=== PATIENT | female | born 1965 | race Caucasian/White ===

== ENCOUNTER 2021-09-23 11:51 | Outpatient (CLI) | payer OTHER, SELFPAY ==
[2021-09-24 22:27] LABS: Rubella Antibody IgG 81.7 IU/mL
== END 2021-09-23 11:52 | disposition home or self-care (01) ==
LOC: LAB 11:56
PROVIDERS: PCP Family Medicine; Visit Provider Family Medicine
DX: Z13.9 Encounter for screening, unspecified (principal)
CPT/HCPCS: 36415; 86735; 86762; 86765

== ENCOUNTER 2022-01-08 11:20 | Outpatient (CLI) | payer OTHER, SELFPAY | END 2022-01-08 11:21 | disposition home or self-care (01) | PROVIDERS: PCP Family Medicine; Visit Provider Obstetrics & Gynecology | DX: R32 Unspecified urinary incontinence (principal) | CPT/HCPCS: 87086 ==

== ENCOUNTER 2022-01-11 17:50 | Emergency (ER) | payer OTHER, SELFPAY ==
[2022-01-11 18:31] VITALS: BP 163/68; PULSE 62; RESP 18; TEMP 36.4; O2SAT 98; BMI 34.2
--- OUTSIDE RECORDS SUMMARY | 2022-01-11 20:17 | XMS_ITS ---
:1965 Author Name Lulu Snow Care Team Providers Name Role Phone Lulu Snow Unavailable Unavailable PROBLEMS Type Condition ICD9-CM Code [id number] Code Onset Condition SNO MED Code Dates Status Problem Urge incontinence N39.41 Active 87 [id number] ALLERGIES Substance Reaction Event Type Date Status Ibuprofen Unknown Drug Allergy Jan, Active ENCOUNTERS Encounter Location Date Diagnosis [facility] [address] [facility] [address], [place], [place] [id number] IMMUNIZATIONS No Known Immunizations SOCIAL HISTORY Qualifiers Date Never Smoker REASON FOR REFERRAL Reason Urge Incontinence Referring Provider First Name Lulu Referring Provider Last Name Gwendolyn Referring Provider Specialty Digital Computer Systems Analyst and gynecolo [facility] Referred Organization [facility] Referred Provider Huyen Baird Referred Address [address] [place], [id number] Referred Provider Specialty Digital Computer Systems Analyst and gynecolog ist FUNCTIONAL STATUS PLAN OF CARE Activity Details Referral Urge Incontinence, Huyen cavanaugh, [address] [place], [place], [phone], VITAL SIGNS MEDICATIONS Medication Instructions Dosage Frequency Start Date End Date Duration S tatus Lisinopril Active Calcium + D Active Levothyroxine Active Sodium NovoLOG Active Citalopram Active Hydrobromide Vitamin B Complex Active Lansoprazole Active Amitriptyline HCl Active Estradiol Active Topiramate Active valACYclovir HCl Active Aspirin Active Glucagon Active Pregabalin Active Oxybutynin Chloride Acti ve ER NovoLOG FlexPen Active PROCEDURES No Known procedures RESULTS No Results REASON FOR VISIT Insurance Providers Health Health Health Health Health Member Patient Patient Patient Patient Patient Subscriber Subscriber Subscriber Group Insurance Plan Plan Plan Plan ID Relationship Address Phone Name Date of ID Name Date of No Type Insurance Insurance Insurance Coverage to Subscriber Address Phone Name Dates HealthPart [address] HealthPart self Marnie [id number] Jadiel TSANG [id number] MEDICAL (GENERAL) HISTORY Type Description Date Medical History Hypothyroid Medical History Type 1 diabetes Medical History History of congenital polycystic kidney disease Medical History HSV 2 Medical History Migraine with aura Medical History Depression Medical History Heart Murmur Medical History Chronic Constipation Surgical History ureteral surgery followed by a right nep hrectomy-since this 2006 surgery pt has had urge incontinence
--- OUTSIDE RECORDS SUMMARY | 2022-01-11 20:17 | XMS_ITS | Encounter Summary ---
:1965 Author Organization [place] Address [facility] [place] [address] Care Team Providers Name Role Phone Jocelyn Davidson RENATA Unavailable Nikita Gamble Primary Care Provider Naveen Casiano MD Unavailable Harlan Lin MD Unavailable Unavailable Mikki Blevins MD Unavailable Reason for Visit Reason Comments Medication Refill Encounter Details Date Type Department Care Team Description 06/27/2021 Refill [facility] Naveed Lin Medication [place] [address] [facility] [place] [address] Social History Tobacco Use Types Packs/Day Years Used Date Smoking Tobacco: Never Smokeless Tobacco: Never Alcohol Use Standard Drinks/Week Comments Yes 0 (1 standard drink = 0.6 oz pure alcoho l) rare Sex Assigned at Date Recorded Female 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 Up to 125 units per day. Last Written Prescription Date: 03/22/21 Last Fill Quantity: 110 ml, # refills: 0 Last Office Visit : 12/03/20 Future Office visit: 07/28/21 (new patient appt) Routing refill request to provider for review/approval because: Insulin refilled by Clinic RN. Former patient of Dr. Lin. documented in this encounter Plan of Treatment Upcoming Encounters Date Type Specialty Care Team Description 02/09/2022 Virtual Visit Surgery Mindi Llanes PA-C [address] [facility] [address] [place] [address] (Wo rk) documented as of this encounter Visit Diagnoses Diagnosis Type 1 diabetes mellitus with stage 3a c hronic kidney disease (H) documented in this encounter Additional Health Concerns Assessment Noted Time PHQ-9 Depression Total Score: 0 02/26/2020 1:30 PM INFORMATION SPECIALIST documented as of this encounter Care Teams Data Consultant Relationship Specialty Start Date End Date Nikita Gamble PCP - General Family Medicine 05/26/20 [facility] [address] [place] [address] Customer Logistics Manager Dietitian, Registered 05/25/[address] [place] [address] Naveen Casiano MD Assigned PCP 11/16/20 [address] [place], [place] [phone] Harlan Lin Assigned Endocrinology 12/07/20 08/01/21 MD [facility] Provider NO INFO AVAILABLE Mikki Blevins MD MD Endocrinology, 05/07/21 [address] [facility] Diabetes, and [place], [place] Metabolism [phone] documented as of this encounter
--- OUTSIDE RECORDS SUMMARY | 2022-01-11 20:17 | XMS_ITS | Encounter Summary ---
:1965 Author Organization [place] Address [address] [facility] [place] [address] Care Team Providers Name Role Phone Jocelyn Davidson RENATA Unavailable Nikita Gamble Primary Care Provider Naveen Casiano MD Unavailable Mikki Blevins MD Unavailable Mikki Blevins MD Unavailable Mindi Llanes PA-C Unavailable Reason for Visit Reason Comments Medication Refill Encounter Details Date Type Department Care Team Description 12/20/2021 Refill [facility] Surgical Thuan Llanes Medication Refill [facility] E alvaro Macias PA-C [address] [facility] out [address] [facility] [address] [place] [address] [place] [id number] [phone] Social History Tobacco Use Types Packs/Day Years Used Date Smoking Tobacco: Never Smokeless Tobacco: Never Alcohol Use Standard Drinks/Week Comments Yes 0 (1 standard drink = 0.6 oz pure alcoho l) rare Sex Assigned at Date Recorded Female 03/04/2020 12:33 PM BIG DATA HADOOP 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 Telephone Encounter - Jammie Mohr RN - 12/22/2021 10:35 AM CDT Left voicemail to make an appointment. Jammie Mohr RN on 12/22/2021 at 10:35 AM Telephone Encounter - Jammie Mohr RN - 12/21/2021 9:32 AM CDT Sent mc - needs appt with [facility]D documented in this encounter Plan of Treatment Upcoming Encounters Date Type Specialty Care Team Description 02/09/2022 Virtual Visit Surgery Mindi Llanes PA-C [address] [facility] [address] [place] [address] (Wo rk) documented as of this encounter Visit Diagnoses Diagnosis Class 2 severe obesity due to excess que ories with serious comorbidity and body mass index (BMI) of 36.0 to 36.9 in adult (H) documented in this encounter Additional Health Concerns Assessment Noted Time PHQ-9 Depression Total Score: 0 02/26/2020 1:30 PM BIG DATA HADOOP DEVELOPER documented as of this encounter Care Teams Urban Anthropologist Relationship Specialty Start Date End Date Nikita Gamble PCP - General Family Medicine 05/26/20 [facility] [address] [place] [address] Warehouse Selector Dietitian, Registered 05/25/18 [facility] [place] [address] Naveen Casiano MD Assigned PCP 11/16/20 [address] [place], [place] [phone] Mikki Blevins MD MD Endocrinology, 05/07/21 [address] [facility] Diabetes, and [place], [place] Metabolism [phone] Mikki Blevins MD Assigned Endocrinology 08/02/21 [facility] Provider [facility] [place], [place] [phone] Mindi Llanes Assigned Surgical 09/26/21 PRETTY Macias Provider [address] [facility] [address] [place] [address] documented as of this encounter
--- OUTSIDE RECORDS SUMMARY | 2022-01-11 20:17 | XMS_ITS | Encounter Summary ---
:1965 Author Organization [place] Address [address] [facility] [place] [address] Care Team Providers Name Role Phone Jocelyn Davidson Bran YANEZ Unavailable Nikita Gamble Primary Care Provider Naveen Casiano MD Unavailable Harlan Lin MD Unavailable Unavailable Reason for Visit Reason Comments Medication Refill Encounter Details Date Type Department Care Team Description 03/14/2021 Refill [facility] Annette Alvarez, Medication Refill [phone] [place] [address] (Wo rk) Social History Tobacco Use Types Packs/Day Years Used Date Smoking Tobacco: Never Smokeless Tobacco: Never Alcohol Use Standard Drinks/Week Comments Yes 0 (1 standard drink = 0.6 oz pure alcoho l) rare Sex Assigned at Date Recorded Female 03/04/2020 12: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 documented as of this encounter Miscellaneous Notes Telephone Encounter - Kandi Rooney RN - 03/17/2021 8:49 AM CST Routing refill request to provider for review/approval because: Labs out of range: TSH Patient needs to be seen because it has been more than 1 year since last office visit as patient seen Annette Avlarez STRIAL ELECTRICAL ENGINEER documented in this encounter Plan of Treatment Upcoming Encounters Date Type Specialty Care Team Description 02/09/2022 Virtual Visit Surgery Mindi Llanes PA-C [address] [facility] [place] [address] [place] [address] (Wo rk) documented as of this encounter Visit Diagnoses Diagnosis Type 1 diabetes mellitus with stage 3a c hronic kidney disease (H) - Primary 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 documented in this encounter Additional Health Concerns Assessment Noted Time PHQ-9 Depression Total Score: 0 02/26/2020 1:30 PM INDUSTRIAL ELECTRICAL ENGINEER documented as of this encounter Care Teams Plastic Parts Fabricator Relationship Specialty Start Date End Date Nikita Gamble PCP - General Family Medicine 05/26/[address] Landscape Architecture Professor Dietitian, Registered 05/25/[address] [place] [address] Naveen Casiano MD Assigned PCP 11/16/20 [address] [place], [place] [phone] Harlan Lin Assigned Endocrinology 12/07/20 08/01/21 MD Bassam Provider NO INFO AVAILABLE documented as of this encounter
--- OUTSIDE RECORDS SUMMARY | 2022-01-11 20:17 | XMS_ITS | Encounter Summary ---
:1965 Author Organization [facility] Address [address] [facility] 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) Chronic kidney disease, stage 3a (H) Mindi Llanes PA-C [address] [facility] [address] [place] [address] Referral ID Status Reason Start Date Expiration Date Visits V isits Requested Authorized [id number] Pending 09/22/2021 09/22/2022 1 1 Review Reason for Visit Reason Comments New Patient New mwm; ELIF Consultation (Routine: Next available opening) - Pending Review Specialty Diagnoses / Procedures Referred By Contact Refer red To Contact Bariatric Diagnoses Class 2 severe obesity with serious comorbidity and body mass index (BMI) of 36.0 to 36.9 in adult, unspecified obesity type (H) Mikki Blevins MD [facility] [address] [address] [place] [address] Phone: Fax: Referral ID Status Reason Start Date Expiration Date Visits V isits Requested Authorized [id number] Pending 07/28/2021 07/28/2022 1 1 Review Encounter Details Date Type Department Care Team Description 09/22/2021 Virtual Visit [facility] Mindi Llanes Class 2 severe obesity due to excess calories with serious comorbidity and body mass index (BMI) of 36.0 to 36.9 in adult (H) (Primary Dx); Surgical Weight Loss Leah Macias-Ashlee Type 1 diabetes mellitus with complicati ons (H); [facility] [place] [address] Chronic kidney disease, stag e 3a (H); [address] Benign essential hypertension; [place] [address] Acquired hypothyroidism; [address] Uncontrolled type 1 diabetes with renal manifestation (H); [place] [address] (Work) Migraine with status migrainosus, not in tractable, unspecified migraine type [phone] Social History Tobacco Use Types Packs/Day Years Used Date Smoking Tobacco: Never Smokeless Tobacco: Never Alcohol Use Standard Drinks/Week Comments Yes 0 (1 standard drink = 0.6 oz pure alcoho l) rare Sex Assigned at Date Recorded Female 03/04/2020 12:33 PM [employer] documented as of this encounter Last Filed Vital Signs Vital Sign Reading Time Taken Comments Blood Pressure - - Pulse - - Temperature - - Respiratory Rate - - Oxygen Saturation - - Inhaled Oxygen Concentration - - Weight 120.2 kg (265 lb) 09/22/2021 9:21 AM CDT pt repo rted Height 180.3 cm (5' 11) 09/22/2021 9:21 AM CDT pt repo rted Body Mass Index 36.96 09/22/2021 9:21 AM CDT documented in this encounter Patient Instructions Patient InstructionsMindi Llanes PA-C - 09/22/2021 9:30 AM CDT Nice to talk with you today. Below is our plan we discussed.- PRETTY [place] Plan: Start phentermine Take 1/2 tablet in the morning for 10 days, your may increase to full tablet if tolerating and weight is not moving in the right direction. Here is the website for the bariatric online information session. Please click this to review. We will discuss at our follow up visit. [email or web address] Goals: Add in short bursts of activity throughout you day. FOLLOW-UP: Please call [phone] to schedule your next visit in 8-10 weeks. MEDICATION STARTED AT THIS APPOINTMENT We are starting Phentermine. Take 1/2 tablet in the morning for 10 days, may increase to full tabletif tolerating following. Please get blood pressure and pulse checked 1-2 weeks after starting phentermine. If BP above 140/90or pulse is greater than 100 contact clinic. Phentermine is being prescribed because you identified hunger as one of the main causes for your extra weight. Our patients on Phentermine find that they: >feel less hunger >find it easier to push the plate away >have an easier time eating less For some of our patients, these feelings are very real and immediate. For other patients, the feelings are less obvious. They don't feel much of a change but find they've lost weight. Like all weight loss medications, Phentermine works best when you help it work. This means: 1. Having less tempting high calorie (fattening) food around the house or office. (For people with strong cravings this is very important.) 2. Staying away from situations or people that may trigger your cravings . 3. Eating out only one time or less each week. 4. Eating your meals at a table with the TV or computer off. Side-effects. Phentermine is generally well tolerated. The main side-effects we see are feelings of racing pulse or rapid heart beat. Some people can get an elevated blood pressure. Because of this we may have you come back within a week or so of starting the medication for a blood pressure check. In order to get refills of this or any medication we prescribe you must be seen in the medical weight mgmt clinic every 2-3 months. documented in this encounter Progress Notes Mindi Llanes PA-C - 09/22/2021 9:30 AM CDT 2Hrebel is a 56 year old who is being evaluated via a billable video visit. If the video visit is dropped, the invitation should be resent by: Text to cell phone: [phone] Will anyone else be joining your video visit? No Video-Visit Details Type of service: Video Visit Video Start Time: 9:30 AM Video End Time:10:30 AM Originating Location (pt. Location): Home Distant Location (provider location): [facility] [place] Platform used for Video Visit: [facility] Medical Weight Management Consult PATIENT: Marnie Duvall : 1965 MOOKIE: 09/22/2021 Dear TONY ACKERMAN, I had the pleasure of seeing your patient, Marnie Duvall. Full intake/assessment was done to determine barriers to weight loss success and develop a treatment plan. Marnie Duvall is a 56 year old female interested in treatment of medical problems associated with excess weight. She has a height of 5'11[pt reported[, a weight of 265 lbs 0 oz, and the calculated Body mass index is 36.96 kg/m??. 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) Relevant Orders NUTRITION REFERRAL Uncontrolled type 1 diabetes with renal manifestation (H) Acquired hypothyroidism Benign essential hypertension Migraine with status migrainosus, not intractable, unspecified migraine type Other Visit Diagnoses Class 2 severe obesity with serious comorbidity and body mass index (BMI) of 36.0 to 36.9 in adult,unspecified obesity type (H) - Primary Relevant Medications phentermine (ADIPEX-P) 37.5 MG tablet Other Relevant Orders NUTRITION REFERRAL Chronic kidney disease, stage 3a (H) Relevant Orders NUTRITION REFERRAL PROGRAM OVERVIEW Reviewed options at [facility] including provider visits, fence builder, 24 week healthylifestyle program, health coaching, food supplements, Get Moving program, and psychological support.All questions about weight loss program were answered. SURGICAL WEIGHT LOSS Option presented given pt BMI and current comorbid conditions. Website for bariatric online information session provided. Pt will review at home and we will discuss at our follow up visit. [email or web address] MEDICATIONS: We discussed healthy habits to assist with weight loss. We reviewed medications associated with weight gain. We discussed the role of pharmacological agents in the treatment of obesity and the off-label use of medications in this practice. We reviewed medication that may assist with weight loss. Indications, contraindications, risks/benefits, and potential side effects were discussed. Phentermine was prescribed. Discussed that medications must always be used together with lifestyle changes such asimprovements in diet choices, portion control and establishing and maintaining a regular exercise program. Pulse Readings from Last 6 Encounters: 11/06/20 75 03/05/20 70 02/26/20 67 11/22/19 69 11/07/19 71 04/16/19 76 AOM Considerations: Phentermine: Not tried. Has low energy. Topiramate: Currently taking for migraines. GLP-1: Tried Ozempic but had signifigant constipation, suspects she has gastroparesis. Naltrexone: Does not having cravings Wellbutrin: Not trieed Metformin: Has type I diabetes Contrave: Does not having cravings Qsymia: On Topiramate CURRENT GOALS: Add in short bursts of activity throughout you day. Follow up: Please call [phone] to schedule your next visit in 8-10 weeks. 68 minutes spent on the date of the encounter doing chart review, history and exam, review test results, counseling, developing plan of care, documentation, and further activities as noted above. She has the following co-morbidities: 09/21/2021 I have the following health issues associated with obesity: GERD (Reflux), Stress Incontinence I have the following symptoms associated with obesity: None of the above Patient Goals 09/21/2021 I am interested in having a healthier weight to diminish current health problems: Yes I am interested in having a healthier weight in order to prevent future health problems: Yes I am interested in having a healthier weight in order to have a future surgery: No If yes, please indicate which surgery? N/A Referring Provider 09/21/2021 Please name the provider who referred you to Medical Weight Management. If you do not know, please answer: I Don't Know. Dr. Mikki Lyons Weight History 09/21/2021 How concerned are you about your weight? Very Concerned Would you describe your weight gain as gradual? No I became overweight: As an Adult The following factors have contributed to my weight gain: Other Please list the other factors. Menopause I have tried the following methods to lose weight: Watching Portions or Calories, Exercise, Meal Replacements, Fasting My lowest weight since age 18 was: 175 My highest weight since age 18 was: 265 The most weight I have ever lost was: (lbs) 50 I have the following family history of obesity/being overweight: One or more of my siblings are overweight Has anyone in your family had weight loss surgery? No How has your weight changed over the last year? Gained How many pounds? 50 Pt was to a man whos in-laws thought she was fat. She got a divorce and lost 60 lbs. Everyone told her she looked great. She maintained her weight at 175-190 lbs but wasn't really happy. After menopause weight came on and she developed central obesity despite small portions. Diet Recall Review with Patient 09/21/2021 Do you typically eat breakfast? Yes Wake up 6:45 am If you do eat breakfast, what types of food do you eat? 8:00 am Breakfast bars, bananas, tangerines, Do you typically eat lunch? 12:30-1 PM Yes If you do eat lunch, what types of food do you typically eat? Cup of [place] yogurt with blueberries and suger free jellos,angerine Do you typically eat supper? Yes If you do eat supper, what types of food do you typically eat? 6:30 -7 PM Brats, burgers, grilled chicken, pulled pork, spinach salad, sweet potato fries, air- fried cauliflower or broccoli, grilled brussel sprouts Do you typically eat snacks? Yes (afternoon) If you do snack, what types of food do you typically eat? Low sugar/ low carb- Protein bars or wheat thin crisps bag Do you like vegetables? Yes Do you drink water? Yes How many glasses of juice do you drink in a typical day? 0 How many of glasses of milk do you drink in a typical day? 0 If you do drink milk, what type? Skim How many 8oz glasses of sugar containing drinks such as Octavio-Aid/sweet tea do you drink in a day? 0 How many cans/bottles of sugar pop/soda/tea/sports drinks do you drink in a day? 0 How many cans/bottles of diet pop/soda/tea or sports drink do you drink in a day? 2 How often do you have a drink of alcohol? Never Has a snack before bed due to low blood sugers. Has protein powder and 1/2 cup of berries. Eating Habits 09/21/2021 Generally, my meals include foods like these: bread, pasta, rice, potatoes, corn, crackers, sweet dessert, pop, or juice. Less Than Weekly Generally, my meals include foods like these: fried meats, brats, burgers, kinyarwanda fries, pizza, cheese, chips, or ice cream. Once a Week Eat fast food (like [employer], [employer], [email or web address]). Never Eat at a buffet or sit-down restaurant. Never Eat most of my meals in front of the TV or computer. Almost Everyday- in front of TV Takes 15 minutes to week. Does not get seconds. Often skip meals, eat at random times, have no regular eating times. Almost Everyday Rarely sit down for a meal but snack or graze throughout. Less Than Weekly Eat extra snacks between meals. A Few Times a Week Eat most of my food at the end of the day. Almost Everyday Eat in the middle of the night or wake up at night to eat. Never Eat extra snacks to prevent or correct low blood sugar. Once a Week Eat to prevent acid reflux or stomach pain. Never Worry about not having enough food to eat. Never Have you been to the food shelf at least a few times this year? No I eat when I am depressed. Never I eat when I am stressed. Never I eat when I am bored. Less Than Weekly I eat when I am anxious. Never I eat when I am happy or as a reward. Never I feel hungry all the time even if I just have eaten. Never Feeling full is important to me. Never I finish all the food on my plate even if I am already full. Never I can't resist eating delicious food or walk past the good food/smell. Never I eat/snack without noticing that I am eating. Never I eat when I am preparing the meal. Never I eat more than usual when I see others eating. Never I have trouble not eating sweets, ice cream, cookies, or chips if they are around the house. Once a Week I think about food all day. Never What foods, if any, do you crave? Chips/Crackers Please list any other foods you crave? N/A Amount of Food 09/21/2021 I make myself vomit what I have eaten or use laxatives to get rid of food. Never I eat a large amount of food, like a loaf of bread, a box of cookies, a pint/quart of ice cream, allat once. Never I eat a large amount of food even when I am not hungry. Never I eat rapidly. Never I eat alone because I feel embarrassed and do not want others to see how much I have eaten. Never I eat until I am uncomfortably full. Never I feel bad, disgusted, or guilty after I overeat. Never I make myself vomit what I have eaten or use laxatives to get rid of food. Never Activity/Exercise History 09/21/2021 How much of a typical 12 hour day do you spend sitting? Most of the Day How much of a typical 12 hour day do you spend lying down? Less Than Half the Day How much of a typical day do you spend walking/standing? Less Than Half the Day How many hours (not including work) do you spend on the TV/Video Games/Computer/Tablet/Phone? 6 Hours or More How many times a week are you active for the purpose of exercise? Never What keeps you from being more active? Lack of Time How many total minutes do you spend doing some activity for the purpose of exercising when you exercise? None Physically is at 100% Just had 2nd knee replacement. Is absolutely exhausted after work. Would like to take her dog for a walk or bike ride after work. PAST MEDICAL HISTORY: Past Medical History: Diagnosis Date ??? Diabetes (H) Work/Social History Reviewed With Patient 09/21/2021 My employment status is: Full-Time 8:30-4 M-F. 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 75% How many hours do you spend commuting to work daily? 2 hours What is your marital status? /In a Relationship If in a relationship, is your significant other overweight? Yes Do you have children? No If you have children, are they overweight? N/A Who do you live with? Spouse Are they supportive of your health goals? Yes Who does the food shopping? Both Social History Tobacco Use ??? Smoking status: Never Smoker ??? Smokeless tobacco: Never Used Substance Use Topics ??? Alcohol use: Yes Comment: rare ??? Drug use: No Mental Health History Reviewed With Patient 09/21/2021 Have you ever been physically or sexually abused? No If yes, do you feel that the abuse is affecting your weight? N/A If yes, would you like to talk to a counselor about the abuse? N/A How often in the past 2 weeks have you felt little interest or pleasure in doing things? More Than Half the Days Over the past 2 weeks how often have you felt down, depressed, or hopeless? For Several Days Sleep History Reviewed With Patient 09/21/2021 How many hours do you sleep at night? 6 11 PM Do you think that you snore loudly or has anybody ever heard you snore loudly (louder than talking or so loud it can be heard behind a shut door)? Yes Has anyone seen or heard you stop breathing during your sleep? No Do you often feel tired, fatigued, or sleepy during the day? Yes Do you have a TV/Computer in your bedroom? No MEDICATIONS: Current Outpatient Medications Medication Sig Dispense Refill ??? acetone urine (KETOSTIX) test strip Use one strip as needed to test urine for ketones 100 strip 3 ??? aspirin 81 MG tablet Take by mouth daily ??? blood glucose (ACCU-CHEK RADHA PLUS) test strip USE TO TEST BLOOD GLUCOSE LEVELS 2TIMES DAILY ORAS DIRECTED. 200 each 3 ??? Calcium Carb-Cholecalciferol (CALCIUM + D3 PO) ??? Citalopram Hydrobromide (CELEXA PO) Take 40 mg by mouth daily ??? glucagon 1 MG kit INJECT 1 MG BY INTRAMUSCULAR ROUTE NEEDED FOR LOW BLOOD SUGAR. Do not dispense until requested by patient. 2 each 0 ??? insulin aspart (NOVOLOG VIAL) 100 UNITS/ML vial For insulin pump use. Up to 125 units per day. 110 mL 1 ??? insulin degludec (TRESIBA) 200 UNIT/ML pen For pump failure only. Inject 39 units every 24 hours. 15 mL 1 ??? insulin pen needle (B-D U/F) 31G X 5 MM miscellaneous Use 4 daily or as directed. 100 each 3 ??? INSULIN PUMP - OUTPATIENT Date last updated: 02/21/19 T:Slim x2 BASAL RATES and times: 12 AM (midnight): 1.7 units/hour CARB RATIO and times: 12 AM (midnight): 5.5 Corection Factor (Sensitivity) and times: 12 AM (midnight): 23 mg/dL BLOOD GLUCOSE TARGET and times: 12 AM (midnight): 120 Active Insulin Time: 4 hours Using T:Connect: Yes Dexcom Sharing Code: [id number] ??? insulin syringe-needle U-100 (30G X 1/2 0.5 ML) 30G X 1/2 0.5 ML miscellaneous Use 1 syringe as needed, during pump failure. 20 each 11 ??? levothyroxine (SYNTHROID/LEVOTHROID) 200 MCG tablet Take 1 tablet (200 mcg) by mouth daily 90 tablet 3 ??? methocarbamol (ROBAXIN) 500 MG tablet Take 1 tablet (500 mg) by mouth 4 times daily as needed for muscle spasms 40 tablet 0 ??? phentermine (ADIPEX-P) 37.5 MG tablet Take 0.5 tablets (18.75 mg) by mouth every morning For 10 days, may increase to 1 tablet if needed following this. 30 tablet 2 ??? Pyridoxine HCl (VITAMIN B6 PO) ??? sennosides (SENOKOT) 8.6 MG tablet Take 2 tablets by mouth daily ??? SUMAtriptan (IMITREX) 100 MG tablet 1 qd prn [place] . May repeat 2 hours 9 tablet 1 ??? Topiramate (TOPAMAX PO) Take 200 mg by mouth daily ALLERGIES: No Known Allergies ROS: HEENT H/O glaucoma: no Cardiovascular CAD: no Palpitations: no HTN: no Gastrointestinal GERD: no Constipation: yes Liver Dz: no Psychiatric Moods Stable: yes Anxiety: no Depression: no Neurologic: Headaches: yes Kidney disease: yes LABS/RECORDS REVIEWED: Hemoglobin A1C POCT Date Value Ref Range Status 03/05/2020 6.6 (H) 0 - 5.6 % Final Comment: Normal <5.7% Prediabetes 5.7-6.4% Diabetes 6.5% or higher - adopted from ADA consensus guidelines. Hemoglobin A1C Date Value Ref Range Status 01/05/2021 7.4 (H) 0.0 - 5.6 % Final Comment: Normal <5.7% Prediabetes 5.7-6.4% Diabetes 6.5% or higher Note: Adopted from ADA consensus guidelines. TSH Date Value Ref Range Status 01/05/2021 8.38 (H) 0.40 - 4.00 mU/L Final 03/05/2020 1.97 0.40 - 4.00 mU/L Final Sodium Date Value Ref Range Status 01/05/2021 134 133 - 144 mmol/L Final 03/05/2020 139 133 - 144 mmol/L Final Potassium Date Value Ref Range Status 01/05/2021 3.9 3.4 - 5.3 mmol/L Final 03/05/2020 4.6 3.4 - 5.3 mmol/L Final Chloride Date Value Ref Range Status 01/05/2021 99 94 - 109 mmol/L Final 03/05/2020 108 94 - 109 mmol/L Final Carbon Dioxide Date Value Ref Range Status 03/05/2020 25 20 - 32 mmol/L Final Carbon Dioxide (CO2) Date Value Ref Range Status 01/05/2021 28 20 - 32 mmol/L Final Anion Gap Date Value Ref Range Status 01/05/2021 7 3 - 14 mmol/L Final 03/05/2020 6 3 - 14 mmol/L Final Glucose Date Value Ref Range Status 01/05/2021 163 (H) 70 - 99 mg/dL Final 03/05/2020 64 (L) 70 - 99 mg/dL Final Urea Nitrogen Date Value Ref Range Status 01/05/2021 33 (H) 7 - 30 mg/dL Final 03/05/2020 38 (H) 7 - 30 mg/dL Final Creatinine Date Value Ref Range Status 01/05/2021 1.93 (H) 0.52 - 1.04 mg/dL Final 03/05/2020 1.83 (H) 0.52 - 1.04 mg/dL Final GFR Estimate Date Value Ref Range Status 01/05/2021 29 (L) >60 mL/min/1.73m2 Final Comment: As of October 05, 2020, eGFR is calculated by the CKD-EPI creatinine equation, without race adjustment. eGFR can be influenced by muscle mass, exercise, and diet. The reported eGFR is an estimation only and is only applicable if the renal function is stable. 03/05/2020 31 (L) >60 mL/min/[1.73_m2] Final Comment: Non GFR Calc Starting 03/14/2018, serum creatinine based estimated GFR (eGFR) will be calculated using the Chronic Kidney Disease Epidemiology Collaboration (CKD-EPI) equation. Calcium Date Value Ref Range Status 01/05/2021 9.5 8.5 - 10.1 mg/dL Final 03/05/2020 9.1 8.5 - 10.1 mg/dL Final Bilirubin Total Date Value Ref Range Status 12/25/2014 0.2 0.2 - 1.3 mg/dL Final Alkaline Phosphatase Date Value Ref Range Status 12/25/2014 87 40 - 150 U/L Final ALT Date Value Ref Range Status 12/25/2014 24 0 - 50 U/L Final AST Date Value Ref Range Status 12/25/2014 16 0 - 45 U/L Final Cholesterol Date Value Ref Range Status 01/05/2021 203 (H) <200 mg/dL Final 03/05/2020 170 <200 mg/dL Final HDL Cholesterol Date Value Ref Range Status 03/05/2020 57 >49 mg/dL Final Direct Measure HDL Date Value Ref Range Status 01/05/2021 53 >=50 mg/dL Final LDL Cholesterol Calculated Date Value Ref Range Status 01/05/2021 100 <=100 mg/dL Final 03/05/2020 68 <100 mg/dL Final Comment: Desirable: <100 mg/dl Triglycerides Date Value Ref Range Status 01/05/2021 251 (H) <150 mg/dL Final 03/05/2020 224 (H) <150 mg/dL Final Comment: Borderline high: 150-199 mg/dl High: 200-499 mg/dl Very high: >499 mg/dl WBC Date Value Ref Range Status 12/25/2014 10.7 4.0 - 11.0 10e9/L Final Hemoglobin Date Value Ref Range Status 12/25/2014 11.9 11.7 - 15.7 g/dL Final Hematocrit Date Value Ref Range Status 12/25/2014 34.5 (L) 35.0 - 47.0 % Final MCV Date Value Ref Range Status 12/25/2014 87 78 - 100 fl Final Platelet Count Date Value Ref Range Status 12/25/2014 290 150 - 450 10e9/L Final PHYSICAL EXAM: Ht 5' 11 (1.803 m) Wt 265 lb (120.2 kg) BMI 36.96 kg/m?? GENERAL: Healthy, alert and no distress EYES: Eyes grossly normal to inspection. No discharge or erythema, or obvious scleral/conjunctival abnormalities. RESP: No audible wheeze, cough, or visible cyanosis. No visible retractions or increased work of breathing. SKIN: Visible skin clear. No significant rash, abnormal pigmentation or lesions. NEURO: Cranial nerves grossly intact. Mentation and speech appropriate for age. PSYCH: Mentation appears normal, affect normal/bright, judgement and insight intact, normal speech and appearance well-groomed. COUNSELING: Reviewed obesity as a chronic disease and comprehensive management stratagies. We discussed Bariatric Basics including: -eating 3 meals daily -eating protein first -eating slowly, chewing food well -avoiding/limiting calorie containing beverages -limiting carbohydrates and changing to whole grains -limiting restaurant or cafeteria eating to twice a week or less We discussed the importance of restorative sleep and stress management in maintaining a healthy weight. We discussed insulin resistance and glycemic index as it relates to appetite and weight control. We discussed the importance of physical activity including cardiovascular and strength training in maintaining a healthier weight and explored viable options. Patient education of above written in AVS. Sincerely, Mindi Llanes PA-C documented in this encounter Miscellaneous Notes Assessment & Plan Note - Mindi Lalnes PA-C - 09/22/2021 10:37 AM CDTAssociated Problem(s): Class 2 severe obesity due to excess calories with serious comorbidity and body mass index (BMI) of 36.0 to 36.9 in adult (H) 09/22/2021 [facility] initial Wt 265# Phentermine Start MKD documented in this encounter Plan of Treatment Upcoming Encounters Date Type Specialty Care Team Description 02/09/2022 Virtual Visit Surgery Mindi Llanes PA-C [address] [facility] [address] [place] [address] (Wo rk) Scheduled Referrals Name Type Priority Associated Diagnoses Order S chedule NUTRITION REFERRAL Referral Routine: Next Class 2 severe obesit y Expected: available opening due to excess calories 09/22/2021 with serious (Approximate), comorbidity and body Expires : mass index (BMI) of 09/23/19 23 36.0 to 36.9 in adult (H) Type 1 diabetes mellitus with complications (H ) Chronic kidney disease, stage 3a (H) documented as of this encounter Visit Diagnoses Diagnosis Class 2 severe obesity due to excess que ories with serious comorbidity and body mass index (BMI) of 36.0 to 36.9 in adult (H) - Primary Type 1 diabetes mellitus with complicati ons (H) Chronic kidney disease, stage 3a (H) Benign essential hypertension Essential hypertension, benign Acquired hypothyroidism Unspecified hypothyroidism Uncontrolled type 1 diabetes with renal manifestation Type I (juvenile type) diabetes mellitus with renal manifestations, uncontrolled Migraine with status migrainosus, not in tractable, unspecified migraine type documented in this encounter Additional Health Concerns Assessment Noted Time PHQ-9 Depression Total Score: 0 02/26/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 documented as of this encounter Care Teams Song And Dance Performer Relationship Specialty Start Date End Date Tony Ackerman PCP - General Family Medicine 05/26/20 [facility] [address] [place] [address] Unix Systems Administrator Dietitian, Registered 05/25/18 [facility] [address] [place] [address] [place] [address] Naveen Casiano MD Assigned PCP 11/16/20 [address] [place], [place] [id number] Mikki Blevins MD MD Endocrinology, 05/07/21 9[address] [facility] Diabetes, and [place], [place] Metabolism [address] Mikki Blevins MD Assigned Endocrinology 08/02/21 [facility] [place] [address] documented as of this encounter
--- OUTSIDE RECORDS SUMMARY | 2022-01-11 20:17 | XMS_ITS | Encounter Summary ---
:1965 Author Organization [place] Address [address] [facility] [place] [address] Care Team Providers Name Role Phone Jocelyn Davidson Bran YANEZ Unavailable Nikita Gamble Primary Care Provider Naveen Casiano MD Unavailable Mikki Blevins MD Unavailable Mikki Blevins MD Unavailable Reason for Visit Reason Onset Date Comments Left Message To Call 09/21/2021 Encounter Details Date Type Department Care Team Description 09/21/2021 Telephone [facility] Mindi Llanes Left Me ssage To Call Surgical Weight Loss Leah Macias [address] [place] [address] [phone] Social History Tobacco Use Types Packs/Day Years Used Date Smoking Tobacco: Never Smokeless Tobacco: Never Alcohol Use Standard Drinks/Week Comments Yes 0 (1 standard drink = 0.6 oz pure alcoho l) rare Sex Assigned at Date Recorded 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 documented as of this encounter Care Teams Marker Shipments Relationship Specialty Start Date End Date Nikita Gamble PCP - General Family Medicine 05/26/[address] Bite Block Maker Dietitian, Registered 05/25/18 [facility] [address] [place] [address] [place] [address] Naveen Casiano MD Assigned PCP 11/16/20 [address] [place] [address] Mikki Blevins MD MD Endocrinology, 05/07/21 909 [facility] Diabetes, and [place], [place] Metabolism [address] Mikki Blevins MD Assigned Endocrinology 08/02/21 [facility] [place], [place] [id number] documented as of this encounter
--- OUTSIDE RECORDS SUMMARY | 2022-01-11 20:17 | XMS_ITS | Encounter Summary ---
:1965 Author Organization [place] Address [address] [facility] [place] [address] Care Team Providers Name Role Phone Jocelyn Davidson RENATA Unavailable Nikita Gamble Primary Care Provider Naveen Casiano MD Unavailable Mikki Blevins MD Unavailable Mikki Blevins MD Unavailable Reason for Visit Reason Onset Date Comments Class 2 severe obesity with serious comorbidity and body ma No Show 09/08/2021 Encounter Details Date Type Department Care Team Description 09/08/2021 Virtual Visit [facility] Mikki Blevins MD No-show for Specialty Clinic [place] [facility] appointm ent (Primary [place] [facility] Dx) [address] [facility] [address] [address] [place] [address] [phone] Social History Tobacco Use Types Packs/Day Years Used Date Smoking Tobacco: Never Smokeless Tobacco: Never Alcohol Use Standard Drinks/Week Comments Yes 0 (1 standard drink = 0.6 oz pure alcoho l) rare Sex Assigned at Date Recorded 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 documented as of this encounter Care Teams Shear Grinder Operator Relationship Specialty Start Date End Date Nikita Gamble PCP - General Family Medicine 05/26/20 [facility] [address] [place] [address] Clinical Programmer Dietitian, Registered 05/25/18 [facility] [address] [place] [address] [place] [address] Naveen Casiano MD Assigned PCP 11/16/20 [address] [place], [place] [id number] Mikki Blevins MD MD Endocrinology, 05/07/21 [address] [facility] Diabetes, and [place], [place] Metabolism [address] Mikki Blevins MD Assigned Endocrinology 08/02/21 [facility] [place] [address] documented as of this encounter
--- OUTSIDE RECORDS SUMMARY | 2022-01-11 20:17 | XMS_ITS | Encounter Summary ---
:1965 Author Organization [place] Address [address] [facility] [place] [address] Care Team Providers Name Role Phone Jocelyn Davidson RENATA Unavailable Niktia Gamble Primary Care Provider Naveen Casiano MD Unavailable Harlan Lin MD Unavailable Unavailable Mikki Blevins MD Unavailable Reason for Referral Consultation (Routine: Next available opening) - Pending Review Specialty Diagnoses / Procedures Referred By Contact Refer red To Contact Bariatric Diagnoses Class 2 severe obesity with serious comorbidity and body mass index (BMI) of 36.0 to 36.9 in adult, unspecified obesity type (H) Mikki Blevins MD Weight Loss Clinic [facility] [address] [place] [address] [address] [place] [address] Phone: Fax: Referral ID Status Reason Start Date Expiration Date Visits V isits Requested Authorized [id number] Pending 07/28/2021 07/28/2022 1 1 Review Reason for Visit Reason Comments New Patient Diabetes Encounter Details Date Type Department Care Team Description 07/28/2021 Virtual Visit [facility] Mikki Blevins MD Class 2 severe obesity with serious chucho rbidity and body mass index (BMI) of 36.0 to 36.9 in adult, unspecified obesity type (H) (Primary Dx); Specialty Clinic [facility] Morbid o besity (H); [facility] Type 1 diabetes mellitus with stage 3a c hronic kidney disease (H); [address] [facility] [place] 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 [facility] [address] [address] [place] [phone] [address] (Work) [phone] Social History Tobacco Use Types Packs/Day Years Used Date Smoking Tobacco: Never Smokeless Tobacco: Never Alcohol Use Standard Drinks/Week Comments Yes 0 (1 standard drink = 0.6 oz pure alcoho l) rare Sex Assigned at Date Recorded Female 03/04/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 documented as of this encounter Last Filed Vital Signs Vital Sign Reading Time Taken Comments Blood Pressure - - Pulse - - Temperature - - Respiratory Rate - - Oxygen Saturation - - Inhaled Oxygen Concentration - - Weight 120.2 kg (265 lb) 07/28/2021 1:30 PM CDT Height 180.3 cm (5' 11) 07/28/2021 1:30 PM CDT Body Mass Index 36.96 07/28/2021 1:30 PM CDT documented in this encounter Patient Instructions Patient InstructionsMikki Blevins MD - 07/28/2021 2:29 PM CDT Basal Settings: 12a-10a- 1.6 10a-2p- 1.35 2p-8p- 1.6 8p-12a- 1.35 documented in this encounter Progress Notes Mikki Blevins MD - 07/28/2021 1:30 PM CDT Video-Visit Details Type of service: Video Visit Video Start Time: 1:43 Video End Time: 2:30 Originating Location (pt. Location): [place], [place] Distant Location (provider location): Home Platform used for Video Visit: MD Marnie Greer is a 56 year old yo female who presents today for evaluation of diabetes melltius type 1 via a billable video visit. Last seen by Dr Lin 12/03/2020. 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 New Patient ??? Diabetes INTERVAL HISTORY: - Father in law last night, was unable to upload data because of that - Running in control IQ since last fall, BG significanly improved - Random highs, but lets control-IQ pull it back down - Weight gain post menopause, having hard time pulling weight off. Tried za (weight management-- foods/portion choices, meal replacement) - Highest weight 265, really interested in weight loss. Eating low carb, protein/vegetables, some low carb protein bar replacements (one in AM), choosing low carb meals, drinking some water during day,has shake before bed (dropping BG) BG dropping around 10pm Dinner around 7pm Subjective: 1) Diabetes Mellitus Diabetes History: Diagnosis: age 7 Hospitalizations: not recently Previous Regimens: none Current Regimen: Tandem TSlim pump, DEXCOM Current settings: Basal rate- 1.6u CHO- 1:5 ISF- 1:15 Target- 110 AIT 5 Hypos- notes feeling lows before lunch, approx 10. Feels numbness around lip, mood changes, weird bitter taste in mouth will start to feel it at 32. Much more infrequent since CGM/PUMP BG check- DEXCOM Trends- Hypos pre lunch, pre bedtime Otherwise relatively level with Control-IQ on Complications: none known 2) Weight loss - Highest weight-- current weight of 265 - Tried weight loss program, but unable to achieve 3) Hypothyroidism - Current regimen Levothyroxine 175mcg - Last TFTs: TSH Date Value Ref Range Status 01/05/2021 8.38 (H) 0.40 - 4.00 mU/L Final 03/05/2020 1.97 0.40 - 4.00 mU/L Final T4 Free Date Value Ref Range Status 01/26/2018 1.12 0.76 - 1.46 ng/dL Final Free T4 Date Value Ref Range Status 01/05/2021 0.60 (L) 0.76 - 1.46 ng/dL Final BP Readings from Last 3 Encounters: 11/06/20 128/68 03/05/20 110/60 02/26/20 138/70 Lab Results Component Value Date A1C 7.4 01/05/2021 A1C 7.3 12/02/2020 A1C 6.6 03/05/2020 A1C 7.3 11/07/2019 A1C 7.4 04/16/2019 Recent Labs Lab Test 01/05/21 1503 03/05/20 1439 CHOL 203* 170 HDL 53 57 LDL 100 68 TRIG 251* 224* Lab Results Component Value Date MICROL <5 01/05/2021 MICROL <5 03/05/2020 No results found for: MICROALBUMIN Wt Readings from Last 3 Encounters: 07/28/21 120.2 kg (265 lb) 02/26/20 113.4 kg (250 lb) 11/07/19 118.3 kg (260 lb 11.2 oz) Active diagnoses this visit: Data Unavailable ROS: 10 point ROS neg other than the symptoms noted above in the HPI. Medical, surgical, social, and family histories, medications and allergies reviewed and updated. Objective: Physical Exam not completed for this phone visit Lab Results Component Value Date/Time TSH 8.38 (H) 01/05/2021 03:03 PM TSH 1.97 03/05/2020 02:39 PM T4 0.60 (L) 01/05/2021 03:03 PM T4 1.12 01/26/2018 12:33 PM Last Comprehensive Metabolic Panel: Sodium Date Value Ref Range Status 01/05/2021 [...] 12/25/2014 16 0 - 45 U/L Final ASSESSMENT / PLAN: No diagnosis found. DIABETES- Recent A1c 7.4% 1. Glucose Control: Advised blood glucose monitoring 1-2 times/day, rotating times. -Decrease basal rate before lunch, post dinner Basal rate- 1.6u--> 12a-10a- 1.6 10a-2p- 1.35 2p-8p- 1.6 8p-12a- 1.35 CHO- 1:5 ISF- 1:15 Target- 110 AIT 5 2. Lipids: Elevated triglycerides, unclear if level was fasting. 3. Blood Pressure: At goal, continue meds 4. CV prevention: Continue aspirin 81 mg daily. Does not meet criteria for antiplatelet therapy 5. Diabetic Nephropathy screening: Up to date / repeat KELLY due December 2021, continue MICHELA 6. Diabetic Retinopathy screening: Up to date, continue annual dilated eye exams 7. Diabetic Neuropathy screening: Up to date. Instructed on routine foot care, follow-up with podiatry as needed. Check A1C in next visit 2. Obesity- Class II - Start Ozempic 0.25mg weekly x4 weeks, then increase to 0.5mg weekly if tolerated - Will be vigilant about hypoglycemia after starting - Referral to Medical Weight management program for more comprehensive services 3. Hypothyroidism - Last TFTs consistent with hypothyroidism - Will increase dose 175-->200mcg - Recheck TFTs in 4-6 weeks No orders of the defined types were placed in this encounter. Return to clinic 6 weeks A total of 65 minutes were spent today 07/28/21 on this visit including chart review, history and counseling, documentation and other activities as detailed above. documented in this encounter Nursing Notes Katt Henderson - 07/28/2021 1:30 PM CDT Chief Complaint Patient presents with ??? New Patient ??? Diabetes Vitals: 07/28/21 1330 Weight: 120.2 kg (265 lb) Height: 1.803 m (5' 11) Body mass index is 36.96 kg/m??. THIERRY Rubin documented in this encounter Plan of Treatment Upcoming Encounters Date Type Specialty Care Team Description 02/09/2022 Virtual Visit Surgery Mindi Llanes PA-C [address] [place] [address] (Wo rk) Scheduled Orders Name Type Priority Associated Diagnoses Order S chedule Lipid panel reflex to Lab Routine Class 2 severe obes ity with Expected: 07/28/2021 direct LDL Fasting serious comorbidity an d (Approximate), body mass index (BMI) of Exp ires: 07/28/2022 36.0 to 36.9 in adult, unspecified obesity type (H) TSH Lab Routine Hypothyroidism due to Expect ed: 07/28/2021 acquired atrophy of thyroid (Approximate), Expires: 2022 T4, free Lab Routine Hypothyroidism due to Expect ed: 07/28/2021 acquired atrophy of thyroid (Approximate), Expires: 2022 Hemoglobin A1c Lab Routine Type 1 diabetes mellitus E xpected: 07/28/2021 with stage 3a chronic (Appro ximate), kidney disease (H) Expires: 07/28/2022 Vitamin D Deficiency Lab Routine Class 2 severe obesi ty with Expected: 07/28/2021 serious comorbidity and (Chrissy roximate), body mass index (BMI) of Exp ires: 07/28/2022 36.0 to 36.9 in adult, unspecified obesity type (H) Type 1 diabetes mellitus with stage 3a chronic kidney disease (H) Scheduled Referrals Name Type Priority Associated Diagnoses Order S chedule Comprehensive Weight Referral Routine: Next Class 2 severe Expe cted: Management available opening obesity with serious comorbidity and body (Approx imate), mass index (BMI) of Expires: 36.0 to 36.9 in 07/28/2022 adult, unspecified obesity type (H) documented as of this encounter Visit Diagnoses Diagnosis Class 2 severe obesity with serious chucho rbidity and body mass index (BMI) of 36.0 to 36.9 in adult, unspecified obesity type (H) - Primary Morbid obesity (H) Morbid obesity Type 1 diabetes mellitus with stage 3a c hronic kidney disease (H) 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 documented in this encounter Additional Health Concerns Assessment Noted Time PHQ-9 Depression Total Score: 0 02/26/2020 1:30 PM NURSE QUALITY documented as of this encounter Care Teams School Business Manager Relationship Specialty Start Date End Date Nikita Gamble PCP - General Family Medicine 05/26/20 [facility] [address] [place] [address] Adult Basic Education Teacher Dietitian, Registered 05/25/18 [facility] [place] [address] [place] [address] Naveen Casiano MD Assigned PCP 11/16/20 [address] [place], [place] [phone] Harlan Lin Assigned Endocrinology 12/07/20 08/01/21 MD Bass[facility] Provider NO INFO AVAILABLE Mikki Blevins MD MD Endocrinology, 05/07/21 909 [facility] Diabetes, and [place], [place] Metabolism [address] documented as of this encounter
--- OUTSIDE RECORDS SUMMARY | 2022-01-11 20:17 | XMS_ITS | Encounter Summary ---
:1965 Author Organization [place] Address [address] [facility] [place] [address] Care Team Providers Name Role Phone Jocelyn Davidson RENATA Unavailable Nikita Gamble Primary Care Provider Naveen Casiano MD Unavailable Mikki Blevins MD Unavailable Mikki Blevnis MD Unavailable Mindi Llanes PA-C Unavailable [phone] Reason for Visit Reason Onset Date Comments No Show No Show 10/20/2021 Encounter Details Date Type Department Care Team Description 10/20/2021 Virtual Visit [facility] Mikki Blevins MD No-show for Specialty Clinic [place] [facility] appointm ent (Primary [place] [facility] Dx) [address] 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 documented as of this encounter Care Teams Feller Machine Operator Relationship Specialty Start Date End Date Nikita Gamble PCP - General Family Medicine 05/26/[address] Grounds Maintenance Manager Dietitian, Registered 05/25/18 [facility] [address] [place] [address] [place] [address] Naveen Casiano MD Assigned PCP 11/16/20 [address] [place] [address] Mikki Blevins MD MD Endocrinology, 05/07/21 909 [facility] Diabetes, and [facility] [address] Mikki Blevins MD Assigned Endocrinology 08/02/21 [facility] [place], [place] [id number] Mindi Llanes Assigned Surgical 09/26/21 [facility] Provider [address] [place] [address] documented as of this encounter
--- OUTSIDE RECORDS SUMMARY | 2022-01-11 20:17 | XMS_ITS | Encounter Summary ---
:1965 Author Organization [place] Address [address] [facility] [place] [address] Care Team Providers Name Role Phone Jocelyn Davidson RENATA Unavailable Nikita Gamble Primary Care Provider Naveen Casiano MD Unavailable Mikki Blevins MD Unavailable Mikki Blevins MD Unavailable Mindi Llanes PA-C Unavailable [phone] Reason for Visit Reason Onset Date Comments Medication Question 09/14/2021 OZEMPIC Encounter Details Date Type Department Care Team Description 09/14/2021 Telephone [facility] Mikki Blevins MD Medication Question Specialty Clinic Adithya na [place] [facility] (OZEMPIC) [address] [address] [place] [address] [phone] Social History Tobacco Use Types Packs/Day Years Used Date Smoking Tobacco: Never Smokeless Tobacco: Never Alcohol Use Standard Drinks/Week Comments Yes 0 (1 standard drink = 0.6 oz pure alcoho l) rare Sex Assigned at Date Recorded Female 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 Pt stated she is not doing well on ozempic- a lot of gastrointestinal issues, bloating and no weightloss. Pt is wondering if there is an alternative to try. Please call back with next steps. Action Taken: Message routed to: Other: endo Travel Screening: Not Applicable documented in this encounter Plan of Treatment Upcoming Encounters Date Type Specialty Care Team Description 02/09/2022 Virtual Visit Surgery Mindi Llanes PA-C [address] [facility] [address] [place] [address] (Wo rk) documented as of this encounter Visit Diagnoses Not on filedocumented in this encounter Additional Health Concerns Assessment Noted Time PHQ-9 Depression Total Score: 0 02/26/2020 1:30 PM MANUFACTURING ENGINEERING INTERN documented as of this encounter Care Teams Ad Compositor Relationship Specialty Start Date End Date Nikita Gamble PCP - General Family Medicine 05/26/20 [facility] [address] [place] [address] Mba Intern Dietitian, Registered 05/25/18 [facility] [address] [place] [address] [place] [address] Naveen Casiano MD Assigned PCP 11/16/20 [address] [place], [place] [phone] Mikki Blevins MD MD Endocrinology, 05/07/21 [address] [facility] Diabetes, and [place], [place] Metabolism [address] Mikki Blevins MD Assigned Endocrinology 08/02/21 [facility] [place] [facility] [place] [id number] Mindi Llanes Assigned Surgical 09/26/21 [facility] Provider [address] [place] [address] documented as of this encounter
--- OUTSIDE RECORDS SUMMARY | 2022-01-11 20:17 | XMS_ITS | Encounter Summary ---
:1965 Author Organization [place] Address [address] [facility] [place] [address] Care Team Providers Name Role Phone Jocelyn Davidson RENATA Unavailable Nikita Gamble Primary Care Provider Naveen Casiano MD Unavailable Mikki Blevins MD Unavailable Mikki Blevins MD Unavailable Mindi Llanes PA-C Unavailable Reason for Visit Reason Onset Date Comments No Show 12/29/2021 Encounter Details Date Type Department Care Team Description 12/29/2021 Virtual Visit [facility] Mikki Blevins MD No-show for Specialty Clinic [place] [facility] appointm ent (Primary [place] [facility] Dx) [address] [facility] [address] [address] [place] [address] [phone] Social History Tobacco Use Types Packs/Day Years Used Date Smoking Tobacco: Never Smokeless Tobacco: Never Alcohol Use Standard Drinks/Week Comments Yes 0 (1 standard drink = 0.6 oz pure alcoho l) rare Sex Assigned at Date Recorded Female 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 documented in this encounter Plan of Treatment Upcoming Encounters Date Type Specialty Care Team Description 02/09/2022 Virtual Visit Surgery Mindi Llanes PA-C [address] [place] [address] (Wo rk) documented as of this encounter Visit Diagnoses Diagnosis No-show for appointment - Primary documented in this encounter Additional Health Concerns Assessment Noted Time PHQ-9 Depression Total Score: 0 02/26/2020 1:30 PM TNT LINE SUPERVISOR documented as of this encounter Care Teams Confectionery Laboratory Manager Relationship Specialty Start Date End Date Nikita Gamble PCP - General Family Medicine 05/26/[address] Marketing Instructor Dietitian, Registered 05/25/18 [facility] - [address] [place] [address] Naveen Casiano MD Assigned PCP 11/16/20 [address] [place] [address] Mikki Blevins MD MD Endocrinology, 05/07/21 [address] [facility] Diabetes, and [place], [place] Metabolism [phone] Mikki Blevins MD Assigned Endocrinology 08/02/21 [facility] [place] [address] Mindi Llanes Assigned Surgical 09/26/21 PRETTY Macias Provider [address] [place] [address] documented as of this encounter
--- OUTSIDE RECORDS SUMMARY | 2022-01-11 20:17 | XMS_ITS | Encounter Summary ---
:1965 Author Organization [place] Address [address] [facility] [place] [address] Care Team Providers Name Role Phone Jocelyn Davidson RENATA Unavailable Nikita Gamble Primary Care Provider Naveen Casiano MD Unavailable Mikki Blevins MD Unavailable Mikki Blevins MD Unavailable Mindi Llanes PA-C Unavailable Reason for Visit Reason Comments Medication Refill Encounter Details Date Type Department Care Team Description 11/09/2021 Refill [facility] Mikki Blevins MD Medication Refill [facility] [address] [place] [address] [place], [place] [phone] (W ork) [address] [phone] Social History Tobacco Use Types Packs/Day Years Used Date Smoking Tobacco: Never Smokeless Tobacco: Never Alcohol Use Standard Drinks/Week Comments Yes 0 (1 standard drink = 0.6 oz pure alcoho l) rare Sex Assigned at Date Recorded Female 03/04/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 Blevins Future Office Visit: None scheduled Requested Prescriptions Pending Prescriptions Disp Refills ??? 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 documented in this encounter Additional Health Concerns Assessment Noted Time PHQ-9 Depression Total Score: 0 02/26/2020 1:30 PM LAW REPORTER documented as of this encounter Care Teams Social Work Job Titles Relationship Specialty Start Date End Date Nikita Gamble PCP - General Family Medicine 05/26/[address] Cell Preparer Dietitian, Registered 05/25/18 [facility] [address] [place] [address] [place] [address] Naveen Casiano MD Assigned PCP 11/16/20 [address] [place], [place] [phone] Mikki Blevins MD MD Endocrinology, 05/07/21 909 [facility] Diabetes, and [place], [place] Metabolism [address] Mikki Blevins MD Assigned Endocrinology 08/02/21 [facility] [place] [address] Mindi Llanes Assigned Surgical 09/26/21 PRETTY Macias Provider [address] [place] [address] documented as of this encounter
--- OUTSIDE RECORDS SUMMARY | 2022-01-11 20:17 | XMS_ITS | Encounter Summary ---
:1965 Author Organization [place] Address [address] [facility] 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 documented as of this encounter Plan of Treatment Upcoming Encounters Date Type Specialty Care Team Description 02/09/2022 Virtual Visit Surgery Mindi Llanes PA-C [address] [place] [address] (Wo rk) documented as of this encounter Visit Diagnoses Not on filedocumented in this encounter Additional Health Concerns Assessment Noted Time PHQ-9 Depression Total Score: 0 02/26/2020 1:30 PM BUS STEWARD documented as of this encounter Care Teams Corporate Director Of Human Resources Relationship Specialty Start Date End Date Nikita Gamble PCP - General Family Medicine 05/26/[address] [place] [address] Assessment Consultant Dietitian, Registered 05/25/18 [facility] [address] [place] [address] [place] [address] Naveen Casiano MD Assigned PCP 11/16/20 [address] [place], [place] [id number] Harlan Lin Assigned Endocrinology 12/07/20 08/01/21 MD [facility] Provider NO INFO AVAILABLE Mikki Blevins MD MD Endocrinology, 05/07/21 9[address] [facility] Diabetes, and [place], [place] Metabolism [address] documented as of this encounter
--- OUTSIDE RECORDS SUMMARY | 2022-01-11 20:17 | XMS_ITS | Encounter Summary ---
:1965 Author Organization [place] Address [address] [facility] 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 documented as of this encounter Plan of Treatment Upcoming Encounters Date Type Specialty Care Team Description 02/09/2022 Virtual Visit Surgery Mindi Llanes PA-C [address] [place] [address] (Wo rk) documented as of this encounter Visit Diagnoses Not on filedocumented in this encounter Additional Health Concerns Assessment Noted Time PHQ-9 Depression Total Score: 0 02/26/2020 1:30 PM HEAVY TRUCK TECHNICIAN documented as of this encounter Care Teams Crime Scene Evidence Technician Relationship Specialty Start Date End Date Nikita Gamble PCP - General Family Medicine 05/26/20 [facility] [address] [place] [address] Lead Section Supervisor Dietitian, Registered 05/25/18 [facility] [address] [place] [address] [place] [address] Naveen Casiano MD Assigned PCP 11/16/20 [address] [place] [address] Harlan Lin Assigned Endocrinology 12/07/20 08/01/21 MD [facility] Provider NO INFO AVAILABLE documented as of this encounter
--- OUTSIDE RECORDS SUMMARY | 2022-01-11 20:17 | XMS_ITS | Encounter Summary ---
:1965 Author Organization [place] Address [address] [facility] [place] [address] Care Team Providers Name Role Phone Jocelyn Davidson RENATA Unavailable Nikita Gamble Primary Care Provider Naveen Casiano MD Unavailable Mikki Blevins MD Unavailable Mikki Blevins MD Unavailable Mindi Llanes PA-C Unavailable Reason for Visit Reason Onset Date Comments Refill Request 12/24/2021 phentermine Encounter Details Date Type Department Care Team Description 12/24/[address] 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 Alix Kim, MS, RD, RN Telephone Encounter - Trinidad Lamb - 12/24/2021 4:22 PM CDT Reason for Call: Medication or medication refill: Do you use a [facility]? Name of the pharmacy and phone number for the current request: [id number] [place], [place] - [address] [address] ( ) Name of the medication requested: phentermine Other request: Pt scheduled soonest available appt for f/u and would like a refill Call taken on 12/24/2021 at 4:22 PM by Trinidad Lamb documented in this encounter Plan of Treatment Upcoming Encounters Date Type Specialty Care Team Description 02/09/2022 Virtual Visit Surgery Mindi Llanes PA-C [address] [place] [address] (Wo rk) documented as of this encounter Visit Diagnoses Not on filedocumented in this encounter Additional Health Concerns Assessment Noted Time PHQ-9 Depression Total Score: 0 02/26/2020 1:30 PM ELECTRICAL EQUIPMENT TESTER documented as of this encounter Care Teams Board Handler Relationship Specialty Start Date End Date Nikita Gamble PCP - General Family Medicine 05/26/20 [facility] [address] [place] [address] Erp Project Manager Dietitian, Registered 05/25/18 [facility] [place] [address] Naveen Casiano MD Assigned PCP 11/16/20 [address] [place], [place] [id number] Mikki Blevins MD MD Endocrinology, 05/07/21 909 [facility] Diabetes, and [place], [place] Metabolism [address] Mikki Blevins MD Assigned Endocrinology 08/02/21 [facility] [place], [place] [id number] Mindi Llanes Assigned Surgical 09/26/21 PRETT[facility] Provider [address] [place] [address] documented as of this encounter
--- OUTSIDE RECORDS SUMMARY | 2022-01-11 20:17 | XMS_ITS | Clinical Summary ---
:1965 Author Organization [place] Address [address] [facility] [place] [address] Care Team Providers Name Role Phone Jocelyn Davidson RENATA Unavailable Nikita Gamble Primary Care Provider Naveen Casiano MD Unavailable Mikki Blevins MD Unavailable Mikki Blevins MD Unavailable Mindi Llanes PA-C Unavailable [phone] Allergies No known active allergies Medications Medication Sig Dispensed Refills Start End Date Status Date Citalopram Take 40 mg by 0 Activ e Hydrobromide mouth daily (CELEXA PO) Topiramate (TOPAMAX Take 200 mg by 0 Active PO) mouth daily aspirin 81 MG Take by mouth 0 Ac tive tablet daily Pyridoxine HCl 0 Activ e (VITAMIN B6 PO) Calcium 0 Active Carb-Cholecalcifero l (CALCIUM + D3 PO) sennosides Take 2 tablets by 0 A ctive (SENOKOT) 8.6 MG mouth daily tablet INSULIN PUMP - Date last updated: 02/21/19 0 01 Active OUTPATIENTIndicatio T:Slim x2 9 ns: Type 1 diabetes BASAL RATES and times: mellitus with 12 AM (midnight): 1.7 units/hour complications (H) CARB RATIO and times: 12 AM (midnight): 5.5 Corection Factor (Sensitivity) and times: 12 AM (midnight): 23 mg/dL BLOOD GLUCOSE TARGET and times: 12 AM (midnight): 120 Active Insulin Time: 4 hours Using T:Connect: Yes Dexcom Sharing Code: [id number] blood glucose USE TO TEST BLOOD 200 each 3 Active (ACCU-CHEK RADHA GLUCOSE LEVELS 0 PLUS) test 2TIMES DAILY OR stripIndications: DIRECTED. Uncontrolled type 1 diabetes with renal manifestation, Type 1 diabetes mellitus with complications (H) insulin Use 1 syringe as 20 each 11 Act thai syringe-needle needed, during 0 U-100 (30G X 1/2 pump failure. 0.5 ML) 30G X 1/2 0.5 ML miscellaneousIndica tions: Type 1 diabetes mellitus with complications (H) insulin pen needle Use 4 daily or as 100 each 3 Active (B-D U/F) 31G X 5 directed. 0 MM miscellaneous insulin degludec For pump failure 15 mL 1 Active (TRESIBA) 200 only. Inject 39 0 UNIT/ML pen units every 24 hours. methocarbamol Take 1 tablet (500 40 tablet 0 Active (ROBAXIN) 500 MG mg) by mouth 4 1 tabletIndications: times daily as Back muscle spasm needed for muscle spasms SUMAtriptan 1 qd prn VÁSQUEZ . August 03 tablet 1 Active (IMITREX) 100 MG repeat 2 hours 1 tabletIndications: Migraine with status migrainosus, not intractable, unspecified migraine type acetone urine Use one strip as 100 strip 3 Active (KETOSTIX) test needed to test 1 stripIndications: urine for ketones Type 1 diabetes mellitus with stage 3a chronic kidney disease (H) insulin aspart For insulin pump 110 mL 1 Active (NOVOLOG VIAL) 100 use. Up to 125 2 UNITS/ML units per day. vialIndications: Type 1 diabetes mellitus with stage 3a chronic kidney disease (H) levothyroxine Take 1 tablet (200 90 tablet 3 Active (SYNTHROID/LEVOTHRO mcg) by mouth 2 ID) 200 MCG daily tabletIndications: Hypothyroidism due to acquired atrophy of thyroid Glucagon, rDNA, INJECT 1 MG BY 2 kit 0 Active (GLUCAGON INTRAMUSCULAR 2 EMERGENCY) 1 MG ROUTE NEEDED KITIndications: FOR LOW BLOOD Hypothyroidism due SUGAR to acquired atrophy of thyroid phentermine Take 0.5 tablets 30 tablet 1 A ctive (ADIPEX-P) 37.5 MG (18.75 mg) by 2 tabletIndications: mouth every Class 2 severe morning for 10 obesity due to days then may excess calories increase to 1 with serious tablet if needed comorbidity and following this body mass index (BMI) of 36.0 to 36.9 in adult (H) phentermine Take 0.5 tablets 30 tablet 2 12/25/19 D iscontinued (ADIPEX-P) 37.5 MG (18.75 mg) by 2 22 tabletIndications: mouth every Class 2 severe morning For 10 obesity due to days, may increase excess calories to 1 tablet if with serious needed following comorbidity and this. body mass index (BMI) of 36.0 to 36.9 in adult (H) Active Problems Problem Noted Date CKD (chronic kidney disease) stage 4, GFR 15-29 ml/min 09/22/2021 Class 2 severe obesity due to excess calories with ser ious comorbidity and 07/28/2021 body mass index (BMI) of 36.0 to 36.9 in adult Overview: 09/22/2021 [facility] initial Wt 265# Phentermin e Start MKD Last Assessment & Plan: 09/22/2021 [facility] initial Wt 265# Phentermin e Start MKD Migraine with status migrainosus, not intractable, uns pecified migraine 11/06/2020 type Last Assessment & Plan: Formatting of th is note might be different from the original. Hemicrania with photophobia and vomiting . Usually treated with amlodipine. Sumatriptan given with excellent result. Discussed triptan usage. Prescribed oral as well Benign essential hypertension 11/07/2019 Acquired hypothyroidism 01/26/2018 Type 1 diabetes mellitus with complications 11/25/2016 Uncontrolled type 1 diabetes with renal manifestation 11/25/2016 Encounters Date Type Specialty Care Team Description 12/29/2021 Virtual Visit Endocrinology Mikki Blevins MD No-show for appointment (Primary Dx) 12/24/2021 Telephone Surgery Shraddha, Mindi Refill Reque PRETTY Macias (phentermine) 12/20/2021 Refill Surgery Mindi Llanes Medication R efjefferson Macias PA-C 11/09/2021 Refill Endocrinology Mikki Blevins MD Medicati on Refill 10/20/2021 Virtual Visit Endocrinology Mikki Blevins MD No-show for appointment (Primary Dx) from Last 3 Months Immunizations Name Administration Dates Next Due Flu, Unspecified 02/01/2017, 12/21/2013 HepB-Adult 04/16/2014, 10/18/2013, 05/31/2013 Influenza (High Dose) 3 valent 02/01/2017 vaccine Influenza Quad, Recombinant, pf(RIV4) 01/26/2018 (Flublok) Influenza Vaccine IM > 6 months 12/27/2019, 01/20/2017, 12/26, Valent IIV4 (Alfuria,Fluzone) 12/30/2014, 12/26/2013 TD (ADULT, 7+) 01/12/2016 Tdap (Adacel,boostrix) 08/25/2006, 08/24/2005 Social History Tobacco Use Types Packs/Day Years Used Date Smoking Tobacco: Never Smokeless Tobacco: Never Tobacco Cessation: Counseling Given: No Alcohol Use Standard Drinks/Week Comments Yes 0 (1 standard drink = 0.6 oz pure alcoho l) rare Sex Assigned at Date Recorded Female 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 Last Filed Vital Signs Vital Sign Reading Time Taken Comments Blood Pressure 128/68 11/06/2020 3:31 PM CDT Pulse 75 11/06/2020 3:31 PM CDT Temperature 37 ??C (98.6 ??F) 11/06/2020 3:31 PM CDT Respiratory Rate 19 02/26/2020 1:31 PM VINEYARDIST Oxygen Saturation 96% 11/06/2020 3:31 PM CDT Inhaled Oxygen Concentration - - Weight 120.2 kg (265 lb) 09/22/2021 9:21 AM CDT pt repo rted Height 180.3 cm (5' 11) 09/22/2021 9:21 AM CDT pt repo rted Body Mass Index 36.96 09/22/2021 9:21 AM CDT Plan of Treatment Upcoming Encounters Date Type Specialty Care Team Description 02/09/2022 Virtual Visit Surgery Mindi Llanes, PRETTY [address] [place] [address] (Wo rk) Health Maintenance Due Date Last Done Comments ADVANCE CARE PLANNING 1965 ANNUAL REVIEW OF HM ORDERS 1965 CT COLONOGRAPHY 1965 FIT-DNA (Cologuard) 1965 FIT 1965 FLEX SIG 1965 MAMMO SCREENING 1965 PARATHYROID 1965 YEARLY PREVENTIVE VISIT 1965 Pneumococcal Vaccine: 1971 Pediatrics (0 to 5 Years) and At-Risk Patients (6 to 64 Years) (1 - PCV) HIV SCREENING 02/29/1980 HEPATITIS C SCREENING 1983 ZOSTER IMMUNIZATION (1 of 2015 2) HEMOGLOBIN 06/25/2015 12/25/2014 DIABETIC FOOT EXAM 02/04/2018 02/04/2017 COVID-19 Vaccine (3 - 08/07/2020 06/12/2020, 05/22/2020 Booster for Pfizer series) PHQ-2 (once per calendar 03/28/2021 02/26/2020, 02/26/2020 year) BMP 04/07/2021 01/05/2021, 03/05/2020, 08/16/2019, Additional history exists MICROALBUMIN 04/07/2021 01/05/2021, 03/05/2020, 04/16/2019, Additional history exists EYE EXAM 05/07/2021 05/07/2020, 05/27/2019 A1C 07/06/2021 01/05/2021, 12/02/2020, 03/05/2020, Additional history exists INFLUENZA VACCINE (#1) 2021 12/16/2020, 12/27/2019, 01/26/2018, Additional history exists LIPID 01/05/2022 01/05/2021, 03/05/2020 HPV TEST 06/09/2022 06/09/2017 PAP 06/09/2022 06/09/2017, 06/09/2017 DTAP/TDAP/TD IMMUNIZATION 01/11/2026 01/12/2016, 08/25/2006 , (4 - Td or Tdap) 08/25/2006, Additional history exists COLONOSCOPY 06/02/2030 06/02/2020 COLORECTAL CANCER SCREENING 06/02/2030 HEPATITIS B IMMUNIZATION Completed 04/16/2014, 10/18/2013, 05/31/2013 ALK PHOS Completed 12/25/2014 URINALYSIS Completed 12/25/2014 PHOSPHORUS Completed 08/16/2019 IPV IMMUNIZATION Aged Out No longer eligi ble based on patient 's age to complete this topic MENINGITIS IMMUNIZATION Aged Out No longe r eligible based on patient 's age to complete this topic Insurance Payer Benefit Plan / Subscriber ID Effective Phone Address T [facility] [id number] 2016-Pres [phone] [address] HMO ADVANTAGE ent [address] [place] [address] Care Teams Sql Engineer Relationship Specialty Start Date End Date Nikita Gamble PCP - General Family Medicine 05/26/20 [facility] [address] [place] [address] Facilities Maintenance Engineer Dietitian, Registered 05/25/18 [facility] [address] [place] [address] [place] [address] Naveen Casiano MD Assigned PCP 11/16/20 [address] [place], [place] [phone] Mikki Blevins MD MD Endocrinology, 05/07/21 909 [facility] Diabetes, and [place], [place] Metabolism [address] Mikki Blevins MD Assigned Endocrinology 08/02/21 [facility] [place] [address] Minid Llanes Assigned Surgical 09/26/21 PRETTY Macias Provider [address] [place] [address]
--- OUTSIDE RECORDS SUMMARY | 2022-01-11 20:17 | XMS_ITS | Encounter Summary ---
:1965 Author Organization [place] Address [address] [facility] [place] [address] Care Team Providers Name Role Phone Jocelyn Davidson RENATA Unavailable Nikita Gamble Primary Care Provider Naveen Casiano MD Unavailable Mikki Blevins MD Unavailable Mikki Blevins MD Unavailable Mindi Llanes PA-C Unavailable [phone] Encounter Details Date Type Department Care Team Description 09/29/2021 Virtual Visit [facility] 3, Sh Wl Diet , RD No Show Weight Loss Clinic [address] [place] [address] Social History Tobacco Use Types Packs/Day Years Used Date Smoking Tobacco: Never Smokeless Tobacco: Never Alcohol Use Standard Drinks/Week Comments Yes 0 (1 standard drink = 0.6 oz pure alcoho l) rare Sex Assigned at Date Recorded 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 documented as of this encounter Progress Notes Haven Keen - 09/29/2021 8:30 AM CDT No charge/no show documented in this encounter Plan of Treatment Upcoming Encounters Date Type Specialty Care Team Description 02/09/2022 Virtual Visit Surgery Mindi Llanes PA-C [address] [place] [id number] (Wo rk) documented as of this encounter Visit Diagnoses Not on filedocumented in this encounter Additional Health Concerns Assessment Noted Time PHQ-9 Depression Total Score: 0 02/26/2020 1:30 PM CAFE WORKER documented as of this encounter Care Teams Precision Devices Inspector/Tester Relationship Specialty Start Date End Date Nikita Gamble PCP - General Family Medicine 05/26/[address] Transmission Rebuilder Dietitian, Registered 05/25/[address] [place] [address] Naveen Casiano MD Assigned PCP 11/16/20 [address] [place] [address] Mikki Blevins MD MD Endocrinology, 05/07/21 909 [facility] Diabetes, and [place], [place] Metabolism [address] Mikki Blevins MD Assigned Endocrinology 08/02/21 [facility] [place] [address] Mindi Llanes Assigned Surgical 09/26/21 PRETTY Macias Provider [address] [place] [id number] documented as of this encounter
--- OUTSIDE RECORDS SUMMARY | 2022-01-11 20:17 | XMS_ITS | Encounter Summary ---
:1965 Author Organization [place] Address [address] [facility] [place] [address] Care Team Providers Name Role Phone Jocelyn Davidson RENATA Unavailable Nikita Gamble Primary Care Provider Naveen Casiano MD Unavailable Mikki Blevins MD Unavailable Mikki Blevins MD Unavailable Reason for Referral Diagnostic Imaging NM (Routine) - Pending Review Specialty Diagnoses / Procedures Referred By Contact Refer red To Contact Diagnoses Gastroparesis Mikki Blevins MD Procedures [place] [address] Referral ID Status Reason Start Date Expiration Date Visits V isits Requested Authorized [id number] Pending 09/17/2021 09/17/2022 1 1 Review Encounter Details Date Type Department Care Team Description 09/17/2021 Orders Only [facility] Mikki Blevins MD Gastroparesis (Primary Specialty Clinic [place] [facility]) [facility] [address] [facility] [address] [address] [place] [address] [phone] Social History Tobacco Use Types Packs/Day Years Used Date Smoking Tobacco: Never Smokeless Tobacco: Never Alcohol Use Standard Drinks/Week Comments Yes 0 (1 standard drink = 0.6 oz pure alcoho l) rare Sex Assigned at Date Recorded Female 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 documented as of this encounter Progress Notes Mikki Blevins MD - 09/17/2021 11:45 AM CDT Called to review Ozempic dosing Significant life stressors over past few weeks- Fired from work at [employer] No BM x8 days Bloated/looked like I was Taking miralax/senna--taking 3 senna/doculax nightly Added Milk of Magnesia and now having diarrhea No appetite x2 days, able to eat last night and stomach is feeling normal today ?gastroparesis, usually has low appetite-- for example eat dinner and feels that is belching up dinner next morning Plan: Will stop Ozempic Has upcoming appt with MW on 09/22 Will order gastric emptying study for formal eval of gastroparesis, consider referral to GI - For now, discussed eating small, frequent meals in place of large meals Patient in agreement with plan Keep regular follow-up end September documented in this encounter Plan of Treatment Upcoming Encounters Date Type Specialty Care Team Description 02/09/2022 Virtual Visit Surgery Mindi Llanes PA-C [address] [facility] [address] [place] [address] (Wo rk) Scheduled Orders Name Type Priority Associated Diagnoses Order S chedule NM Gastric Emptying Imaging Routine Gastroparesis Expecte d: 09/17/2021 (Approximate), Expires: 09/17/2022 documented as of this encounter Visit Diagnoses Diagnosis Gastroparesis - Primary documented in this encounter Additional Health Concerns Assessment Noted Time PHQ-9 Depression Total Score: 0 02/26/2020 1:30 PM AIRCRAFT MAGNETO MECHANIC documented as of this encounter Care Teams Document Examiner Relationship Specialty Start Date End Date Nikita Gamble PCP - General Family Medicine 05/26/20 [facility] [address] [place] [address] Relaster Dietitian, Registered 05/25/18 [facility] [address] [place] [address] [place] [address] Naveen Casiano MD Assigned PCP 11/16/20 [address] [place], [place] [phone] Mikki Blevins MD MD Endocrinology, 05/07/21 [address] [facility] Diabetes, and [place], [place] Metabolism [id number] Mikki Blevins MD Assigned Endocrinology 08/02/21 [facility] [place] [address] documented as of this encounter
--- OUTSIDE RECORDS SUMMARY | 2022-01-11 20:17 | XMS_ITS | Encounter Summary ---
:1965 Author Organization [place] Address [address] [facility] [place] [address] Care Team Providers Name Role Phone Jocelyn Davidson RENATA Unavailable Nikita Gamble Primary Care Provider Naveen Casiano MD Unavailable Harlan Lin MD Unavailable Unavailable Mikki Blevins MD Unavailable Reason for Visit Reason Comments Medication Refill levothyroxine (SYNTHROID/LEV OTHROID) 175 MCG tablet Encounter Details Date Type Department Care Team Description 06/22/2021 Refill [facility] [place] MD (levothyroxine [address] [facility] NO INFO (SYNTHROID/LEVOTHROID) [place], [place] AVAILABLE 175 MCG tab let) [id number] Social History Tobacco Use Types Packs/Day Years Used Date Smoking Tobacco: Never Smokeless Tobacco: Never Alcohol Use Standard Drinks/Week Comments Yes 0 (1 standard drink = 0.6 oz pure alcoho l) rare Sex Assigned at Date Recorded Female 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 Luis refill for 60 days to get pat to appointment with new provider. 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 documented in this encounter Additional Health Concerns Assessment Noted Time PHQ-9 Depression Total Score: 0 02/26/2020 1:30 PM SHARK BIOLOGIST documented as of this encounter Care Teams Roundsman Relationship Specialty Start Date End Date Nikita Gamble PCP - General Family Medicine 05/26/20 [facility] [address] [place] [address] Farm Tractor Operator Dietitian, Registered 05/25/18 [facility] [address] [place] [address] [place] [address] Naveen Casiano MD Assigned PCP 11/16/20 [address] [place] [address] Harlan Lin Assigned Endocrinology 12/07/20 08/01/21 MD Bassam Provider NO INFO AVAILABLE Mikki Blevins MD MD Endocrinology, 05/07/21 909 [facility] Diabetes, and [place], [place] Metabolism [phone] documented as of this encounter
--- OUTSIDE RECORDS SUMMARY | 2022-01-11 20:18 | XMS_ITS | Encounter Summary ---
:1965 Author Organization [place] Address [address] [facility] [place] [address] Care Team Providers Name Role Phone Jocelyn Davidson RENATA Unavailable Nikita Gamble Primary Care Provider Naveen Casiano MD Unavailable Harlan Lin MD Unavailable Unavailable Encounter Details Date Type Department Care Team Description 01/03/2021 Lab Health [facility] Naveen Casiano MD [facility] [address] [facility] osteoarthritis of left knee [address] [place] [phone] Social History Tobacco Use Types Packs/Day Years Used Date Smoking Tobacco: Never Smokeless Tobacco: Never Alcohol Use Standard Drinks/Week Comments Yes 0 (1 standard drink = 0.6 oz pure alcoho l) rare Sex Assigned at Date Recorded Female 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 documented as of this encounter Miscellaneous Notes Result Encounter Note - Naveen Casiano MD - 01/03/2021 2:00 PM CDT COVID test negative Naveen Casiano MD documented in this encounter Plan of Treatment Upcoming Encounters Date Type Specialty Care Team Description 02/09/2022 Virtual Visit Surgery Shraddha Mindi PRETTY Macias [address] [place] [address] (Wo rk) documented as of this encounter Procedures Procedure Name Priority Date/Time Associated Diagnosis Comme nts COVID-19 VIRUS STAT 01/03/2021 1:59 PM Post-traumatic Resul ts for this (CORONAVIRUS) BY CDT osteoarthritis of left p rocedure are in PCR knee the results section. documented in this encounter Results Asymptomatic COVID-19 Virus (Coronavirus) by PCR Nose (01/03/2021 1:59 PM CDT) Analysis Performed At Patho logist Time Signature SARS CoV2 PCR Negative Negative 01/03/2021 [facility] 8:14 PM CDT LABORATORY Comment: NEGATIVE: SARS-CoV-2 (COVID-19) RNA not detected, presumed negative. Specimen Anatomical Collection Method Collection Time Receive d Time (Source) Location / / Volume Laterality Swab NASAL STRUCTURE / Non-blood 01/03/2021 1:59 PM 11/2020 2:00 Unknown Collection / CDT PM CDT Unknown Narrative [facility] - 01/03/2021 8:14 PM C DT Testing was performed using the Xpert Xpress SARS-CoV-2 Assay on the [employer] Systems. A dditional information about this Emergency Use Authorization (EUA) a ssay can be found via the Lab Guide. This test should be ordered for t he detection of SARS-CoV-2 in individuals who meet SARS-CoV-2 clinical and/or epidemiological criteria. Test performance is unknown in asymptomatic patients. This test is for in vitro diagnostic use unde r the FDA EUA for laboratories certified under CLIA to per form high complexity testing. This test has not been FDA cleared or ap proved. A negative result does not rule out the presence of PCR in hibitors in the specimen or target RNA in concentration below the li savana of detection for the assay. The possibility of a false negati ve should be considered if the patient's recent exposure or clinica l presentation suggests COVID-19. This test was validated by the [facility] Infectious Diseases Diagnostic [facility]. This lab oratory is certified under the Clinical Laboratory Improvement Amen dments of 1987 (CLIA-88) as qualified to perform high complexity lab oratory testing. Naveen Casiano MD LAB - MICRO GENERAL ORDERABL ES Performing Organization Address City/State/ZIP Code Phon e Number [facility] [place] [phone] Diag. Lab [address] [facility], Room [address]297 [facility] Infectious [place], [place] [phone] Diseases Diagnostic [phone], [facility] Lab (IDDL) [address] [facility], Room [address]297 documented in this encounter Visit Diagnoses Diagnosis Post-traumatic osteoarthritis of left kn ee Secondary localized osteoarthrosis, lowe r leg documented in this encounter Additional Health Concerns Assessment Noted Time PHQ-9 Depression Total Score: 0 02/26/2020 1:30 PM MAINTENANCE TECHNICIAN 3RD SHIFT documented as of this encounter Care Teams Business Support Liaison Relationship Specialty Start Date End Date Nikita Gamble PCP - General Family Medicine 05/26/20 [facility] [address] [place] [address] Senior Cyber Security Analyst Dietitian, Registered 05/25/18 [facility] [address] [place] [address] [place] [address] Naveen Casiano MD Assigned PCP 11/16/20 [address] [place], [place] [phone] Harlan Lin Assigned Endocrinology 12/07/20 08/01/21 MD Bassam Provider NO INFO AVAILABLE documented as of this encounter
--- OUTSIDE RECORDS SUMMARY | 2022-01-11 20:18 | XMS_ITS | Encounter Summary ---
:1965 Author Organization [place] Address [address] [facility] [address] Care Team Providers Name Role Phone Annette Alvarez Mabel ALVAREZ GROUP THERAPY COUNSELOR Unavailable Jocelyn Davidson RD Unavailable Tamar Murphy APRN GROUP THERAPY COUNSELOR Unavailable Nikita Gamble Primary Care Provider Reason for Visit Reason Onset Date Comments Diabetes Education 05/22/2020 scheduling outreach Encounter Details Date Type Department Care Team Description 05/22/2020 Telephone [facility] Annette Nuñez Diabetes E ducation [facility] [place] KIM Monroe GROUP THERAPY COUNSELOR (scheduling outreach) [address] [facility] [id number] [place] [phone] Social History Tobacco Use Types Packs/Day Years Used Date Smoking Tobacco: Never Smokeless Tobacco: Never Alcohol Use Standard Drinks/Week Comments Yes 0 (1 standard drink = 0.6 oz pure alcoho l) rare Sex Assigned at Date Recorded Female 03/04/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 Left message with phone number to call to schedule. Plan for 2nd outreach attempt within 1 week. Trinidad Adikns [facility] Scheduling RITY 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S documented in this encounter Plan of Treatment Upcoming Encounters Date Type Specialty Care Team Description 02/09/2022 Virtual Visit Surgery Mindi Llanes PA-C [address] [facility] [address] [place] [address] (Wo rk) documented as of this encounter Visit Diagnoses Not on filedocumented in this encounter Additional Health Concerns Assessment Noted Time PHQ-9 Depression Total Score: 0 02/26/2020 1:30 PM SECURITY 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S documented as of this encounter Care Teams Wearing Apparel Folder Relationship Specialty Start Date End Date Nikita Gamble PCP - General Family Medicine 05/26/20 [facility] [address] [place] [address] Annette Alvarez, Nurse Practitioner Clinical Nurse 03/22/17 10/21/20 [facility] GROUP THERAPY COUNSELOR Specialist [address] [address] [place], [place] [phone] Jocelyn Davidson RD Portable Irrigation Operator Dietitian, Registered 05/25/18 [facility] [place] [address] Tamar Murphy APRN Assigned PCP 02/08/20 1 GROUP THERAPY COUNSELOR [address] [place] [address] documented as of this encounter
--- OUTSIDE RECORDS SUMMARY | 2022-01-11 20:18 | XMS_ITS | Encounter Summary ---
:1965 Author Organization [place] Address [address] [facility] [place] [address] Care Team Providers Name Role Phone Annette Alvarez APRN MOTOR AND GENERATOR BRUSH MAKER Unavailable [phone] Unavailable Tamar Murphy ASSIGNMENT DESK ASSISTANT MOTOR AND GENERATOR BRUSH MAKER Unavailable Nikita Gamble Primary Care Provider Naveen Casiano MD Unavailable Harlan Lin MD Unavailable Unavailable Mikki Blevins MD Unavailable Mikki Blevins MD Unavailable Mindi Llanes PA-C Unavailable Reason for Visit Reason Comments Medication Refill Encounter Details Date Type Department Care Team Description 06/05/2020 Refill [facility] Annette Alvarez, Medication Refill [place] ASSIGNMENT DESK ASSISTANT MOTOR AND GENERATOR BRUSH MAKER [phone] [place], [place] [phone] [place] [address] (Wo rk) Social History Tobacco Use Types Packs/Day Years Used Date Smoking Tobacco: Never Smokeless Tobacco: Never Alcohol Use Standard Drinks/Week Comments Yes 0 (1 standard drink = 0.6 oz pure alcoho l) rare Sex Assigned at Date Recorded Female 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 documented in this encounter Additional Health Concerns Assessment Noted Time PHQ-9 Depression Total Score: 0 02/26/2020 1:30 PM RETAIL STORE MANAGER documented as of this encounter Care Teams Tipping Machine Operator Automatic Relationship Specialty Start Date End Date Nikita Gamble PCP - General Family Medicine 05/26/20 [facility] [address] [place] [address] Annette Alvarez, Nurse Practitioner Clinical Nurse 03/22/17 10/21/20 ASSIGNMENT DESK ASSISTANT MOTOR AND GENERATOR BRUSH MAKER Specialist [address] [place], [place] [phone] Jocelyn Davidson RD Loss Claim Clerk Dietitian, Registered 05/25/18 [facility] [place] [address] Tamar Murphy, Assigned PCP 02/08/20 11/15/20 ASSIGNMENT DESK ASSISTANT MOTOR AND GENERATOR BRUSH MAKER [address] [place], [place] [phone] Naveen Casiano MD Assigned PCP 11/16/20 [address] [place], [place] [phone] Harlan Lin Assigned Endocrinology 12/07/20 08/01/21 MD Bassam Provider NO INFO AVAILABLE Mikki Blevins MD MD Endocrinology, 05/07/21 909 [facility] Diabetes, and [place], [place] Metabolism [address] Mkiki Blevins MD Assigned Endocrinology 08/02/21 [facility] [place] [address] Mindi Llanes Assigned Surgical 09/26/21 PRETTY Macias Provider [address] [place] [address] documented as of this encounter
--- OUTSIDE RECORDS SUMMARY | 2022-01-11 20:18 | XMS_ITS | Encounter Summary ---
:1965 Author Organization [place] Address [facility] 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 documented as of this encounter Plan of Treatment Upcoming Encounters Date Type Specialty Care Team Description 02/09/2022 Virtual Visit Surgery Mindi Llanes PA-C [address] [place] [address] (Wo rk) documented as of this encounter Visit Diagnoses Not on filedocumented in this encounter Additional Health Concerns Assessment Noted Time PHQ-9 Depression Total Score: 0 02/26/2020 1:30 PM SET OFF PRESS OPERATOR documented as of this encounter Care Teams Plate Glass Polisher Relationship Specialty Start Date End Date Goran Lloyd PCP - General Family Practice 12/29/17 05/21/[address] [address] Annette Alvarez, Nurse Practitioner Clinical Nurse 03/22/17 10/21/20 CASING RUNNER MATERIALS ANALYST Specialist [address] [place], [place] [phone] Jocelyn Davidson RD Associate Media Planner Dietitian, Registered 05/25/18 [facility] [place] [address] Tamar Murphy APRN Assigned PCP 02/08/20 1 MATERIALS ANALYST [address] [place] [address] documented as of this encounter
--- OUTSIDE RECORDS SUMMARY | 2022-01-11 20:18 | XMS_ITS | Encounter Summary ---
:1965 Author Organization [place] Address [address] [facility] [place] [address] Care Team Providers Name Role Phone Annette Alvarez KIM ENGINEERING INSTRUCTOR Unavailable Jocelyn Davidson RD Unavailable Tamar Murphy APRN ENGINEERING INSTRUCTOR Unavailable Nikita Gamble Primary Care Provider Reason for Visit Reason Onset Date Comments Panel Management 06/26/2020 Encounter Details Date Type Department Care Team Description 06/26/2020 [facility] Tamar Murphy APRN Panel Management [facility] [address] [address] [phone] (Wo rk) Social History Tobacco Use Types Packs/Day Years Used Date Smoking Tobacco: Never Smokeless Tobacco: Never Alcohol Use Standard Drinks/Week Comments Yes 0 (1 standard drink = 0.6 oz pure alcoho l) rare Sex Assigned at Date Recorded Female 03/04/2020 12:33 PM 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 documented in this encounter Plan of Treatment Upcoming Encounters Date Type Specialty Care Team Description 02/09/2022 Virtual Visit Surgery Mindi Llanes PA-C [address] [facility] [address] [place] [address] (Wo rk) documented as of this encounter Visit Diagnoses Not on filedocumented in this encounter Additional Health Concerns Assessment Noted Time PHQ-9 Depression Total Score: 0 02/26/2020 1:30 PM PLAYERS ASSISTANT documented as of this encounter Care Teams Weigher Bulker Relationship Specialty Start Date End Date Nikita Gamble PCP - General Family Medicine 05/26/20 [facility] [address] [place] [address] Annette Alvarez, Nurse Practitioner Clinical Nurse 03/22/17 10/21/20 [facility] SECURITY DEVELOPER ENGINEERING INSTRUCTOR Specialist [address] [place], [place] [phone] Jocelyn Davidson RD Wire Drawing Setter Dietitian, Registered 05/25/18 [facility] [place] [address] Tamar Murphy APRN Assigned PCP 02/08/20 1 ENGINEERING INSTRUCTOR [address] [place] [address] documented as of this encounter
--- OUTSIDE RECORDS SUMMARY | 2022-01-11 20:18 | XMS_ITS | Encounter Summary ---
:1965 Author Organization [place] Address [address] [facility] [address] Care Team Providers Name Role Phone Jocelyn Davidson RENATA Unavailable Nikita Gamble Primary Care Provider Naveen Casiano MD Unavailable Harlan Lin MD Unavailable Unavailable Encounter Details Date Type Department Care Team Description 12/05/2020 Medical Correspondence [facility] Scan, PUMP PRESCRIPTION Health Info Mgmt Non-Provider ORDER DANIELLE [facility] DIABETES CARE [address] [place] [phone] Social History Tobacco Use Types Packs/Day Years Used Date Smoking Tobacco: Never Smokeless Tobacco: Never Alcohol Use Standard Drinks/Week Comments Yes 0 (1 standard drink = 0.6 oz pure alcoho l) rare Sex Assigned at Date Recorded Female 03/04/2020 12:33 PM 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 documented as of this encounter Plan of Treatment Upcoming Encounters Date Type Specialty Care Team Description 02/09/2022 Virtual Visit Surgery Mindi Llanes PA-C [address] [facility] [address] [place] [address] (Wo rk) documented as of this encounter Visit Diagnoses Not on filedocumented in this encounter Additional Health Concerns Assessment Noted Time PHQ-9 Depression Total Score: 0 02/26/2020 1:30 PM SENIOR ELECTRONICS DESIGN ENGINEER documented as of this encounter Care Teams Division Toll Wire Chief Relationship Specialty Start Date End Date Nikita Gamble PCP - General Family Medicine 05/26/20 [facility] [address] [place] [address] Lobby Attendant Dietitian, Registered 05/25/[address] [place] [address] Naveen Casiano MD Assigned PCP 11/16/20 [address] [place] [address] Harlan Lin Assigned Endocrinology 12/07/20 08/01/21 MD Bassam Provider NO INFO AVAILABLE documented as of this encounter
--- OUTSIDE RECORDS SUMMARY | 2022-01-11 20:18 | XMS_ITS | Encounter Summary ---
:1965 Author Organization [place] Address [address] [facility] [address] Care Team Providers Name Role Phone Annette Alvarezmamadou ALVAREZ CUSTOMER SERVICE CASHIER Unavailable Jocelyn Davidson RD Unavailable Tamar Murphy APRN CUSTOMER SERVICE CASHIER Unavailable Nikita Gamble Primary Care Provider Reason for Visit Reason Onset Date Comments Hypoglycemia 07/28/2020 Encounter Details Date Type Department Care Team Description 07/28/2020 Telephone [facility] Tamar Murphy APRN Hypoglycemia [place] [id number] [phone] [place] [address] (Wo rk) Social History Tobacco Use Types Packs/Day Years Used Date Smoking Tobacco: Never Smokeless Tobacco: Never Alcohol Use Standard Drinks/Week Comments Yes 0 (1 standard drink = 0.6 oz pure alcoho l) rare Sex Assigned at Date Recorded Female 03/04/2020 12:33 PM EXHIBITIONS CURATOR documented as of this encounter Miscellaneous Notes Telephone Encounter - Tamar Murphy APRN CUSTOMER SERVICE CASHIER - 07/28/2020 5:57 PM CDT Responded to staff request as MAURICE concerned for low blood sugar. Patient with repeated wording and inconsistent with conversation. Patient's CGM checked and was at 70. Patient given personal glucose drink, Mt Dew, and glucose drinkfrom lab of 150 mg of glucose. nurse technician called to room to check glucose and found results of 48. Patient's managed to stop her insulin pump. 911 called. EMT's stayed with patient until she reached glucose 80+. Patient refused hospital. Patient was also given and eating snacks during this time. Patient's called by staff to come pick patient up, he was agreeable. Patient was not agreeable to have come pick her up. Patient thanked all staff involved and appeared very appropriate in response and conversation. Glucose was 88 per CGM when asked at that time. Patient walked to back door to leave. It was unclear if patient was taking a ride or driving self home despite multiple and strong recommendations against it. Tamar Murphy APRN CNP on 07/28/2020 at 6:04 PM documented in this encounter Plan of Treatment Upcoming Encounters Date Type Specialty Care Team Description 02/09/2022 Virtual Visit Surgery Mindi Llanes PA-C [address] [facility] [address] [place] [id number] (Wo rk) documented as of this encounter Visit Diagnoses Not on filedocumented in this encounter Additional Health Concerns Assessment Noted Time PHQ-9 Depression Total Score: 0 02/26/2020 1:30 PM EXHIBITIONS CURATOR documented as of this encounter Care Teams Cafeteria Worker Relationship Specialty Start Date End Date Nikita Gamble PCP - General Family Medicine 05/26/20 [facility] [address] [place] [address] Annette Alvarez, Nurse Practitioner Clinical Nurse 03/22/17 10/21/20 [facility] RODRIGUEZ Specialist [address] [place] [address] Teacher Assistant Dietitian, Registered 05/25/18 [facility] [address] [place] [address] Tamar Murphy APRN Assigned PCP 02/08/20 1 CUSTOMER SERVICE CASHIER [address] [facility] [place] [place] [id number] documented as of this encounter
--- OUTSIDE RECORDS SUMMARY | 2022-01-11 20:18 | XMS_ITS | Encounter Summary ---
:1965 Author Organization [place] Address [address] [facility] [place] [address] Care Team Providers Name Role Phone Jocelyn Davidson RENATA Unavailable Nikita Gamble Primary Care Provider Naveen Casiano MD Unavailable Encounter Details Date Type Department Care Team Description 12/03/2020 Travel Social History Tobacco Use Types Packs/Day Years Used Date Smoking Tobacco: Never Smokeless Tobacco: Never Alcohol Use Standard Drinks/Week Comments Yes 0 (1 standard drink = 0.6 oz pure alcoho l) rare Sex Assigned at Date Recorded Female 03/04/2020 12:33 PM EXPORT FREIGHT SPECIALIST COVID-19 Exposure Response Date Recorded In the last month, have you been in contact with No / Unsure 12/03/2020 8:01 PM CDT someone who was confirmed or suspected to have Coronavirus / COVID-19? documented as of this encounter Plan of Treatment Upcoming Encounters Date Type Specialty Care Team Description 02/09/2022 Virtual Visit Surgery Mindi Llanes PA-C [address] [place] [address] (Wo rk) documented as of this encounter Visit Diagnoses Not on filedocumented in this encounter Additional Health Concerns Assessment Noted Time PHQ-9 Depression Total Score: 0 02/26/2020 1:30 PM EXPORT FREIGHT SPECIALIST documented as of this encounter Care Teams Med Dir Relationship Specialty Start Date End Date Nikita Gamble PCP - General Family Medicine 05/26/20 [facility] [address] [place] [address] Plant Worker Dietitian, Registered 05/25/[address] [place] [address] Naveen Casiano MD Assigned PCP 11/16/20 [address] [place] [address] documented as of this encounter
--- OUTSIDE RECORDS SUMMARY | 2022-01-11 20:18 | XMS_ITS | Encounter Summary ---
:1965 Author Organization [place] Address [address] [place] [address] Care Team Providers Name Role Phone Jocelyn Davidson RENATA Unavailable Tamar Murphy APRN PRIMARY PRODUCTS INSPECTORS Unavailable Nikita Gamble Primary Care Provider Encounter Details Date Type Department Care Team Description 11/06/2020 Travel Social History Tobacco Use Types Packs/Day Years Used Date Smoking Tobacco: Never Smokeless Tobacco: Never Alcohol Use Standard Drinks/Week Comments Yes 0 (1 standard drink = 0.6 oz pure alcoho l) rare Sex Assigned at Date Recorded Female 03/04/2020 12:33 PM JOB SERVICE SPECIALIST COVID-19 Exposure Response Date Recorded In the last month, have you been in contact with No / Unsure 11/06/2020 3:29 PM CDT someone who was confirmed or suspected to have Coronavirus / COVID-19? documented as of this encounter Plan of Treatment Upcoming Encounters Date Type Specialty Care Team Description 02/09/2022 Virtual Visit Surgery Mindi Llanes PA-C [address] [place] [id number] (Wo rk) documented as of this encounter Visit Diagnoses Not on filedocumented in this encounter Additional Health Concerns Assessment Noted Time PHQ-9 Depression Total Score: 0 02/26/2020 1:30 PM JOB SERVICE SPECIALIST documented as of this encounter Care Teams Inspector And Tester Relationship Specialty Start Date End Date Nikita Gamble PCP - General Family Medicine 05/26/20 [facility] [address] [place] [address] Damper Maker Dietitian, Registered 05/25/18 [facility] [address] [place] [address] [place] [address] Tamar Murphy APRN PRIMARY PRODUCTS INSPECTORS Assigned PCP 02/08/20 11/15/20 [address] [place] [address] documented as of this encounter
--- OUTSIDE RECORDS SUMMARY | 2022-01-11 20:18 | XMS_ITS | Encounter Summary ---
:1965 Author Organization [place] Address [address] [facility] [place] [address] Care Team Providers Name Role Phone Jocelyn Davidson RENATA Unavailable Tamar Murphy APRN COOKING APPLIANCE REPAIR TECHNICIAN Unavailable Nikita Gamble Primary Care Provider Reason for Visit Reason Comments Headache Encounter Details Date Type Department Care Team Description 11/06/2020 Office Visit [facility] Naveen Casiano, Migrain e with status [facility] [place] migrainosus, [address] intractable, [place], [place] unspeci fied migraine [phone] type (Primary Dx) [phone] Social History Tobacco Use Types Packs/Day Years Used Date Smoking Tobacco: Never Smokeless Tobacco: Never Alcohol Use Standard Drinks/Week Comments Yes 0 (1 standard drink = 0.6 oz pure alcoho l) rare Sex Assigned at Date Recorded Female 03/04/2020 12:33 PM FORECLOSURE SPECIALIST COVID-19 Exposure Response Date Recorded In the last month, have you been in contact with No / Unsure 11/06/2020 3:29 PM CDT someone who was confirmed or suspected to have Coronavirus / COVID-19? documented as of this encounter Last Filed Vital Signs Vital Sign Reading Time Taken Comments Blood Pressure 128/68 11/06/2020 3:31 PM CDT Pulse 75 11/06/2020 3:31 PM CDT Temperature 37 ??C (98.6 ??F) 11/06/2020 3:31 PM CDT Respiratory Rate - - Oxygen Saturation 96% 11/06/2020 3:31 PM CDT Inhaled Oxygen Concentration - - Weight - - Height - - Body Mass Index - - documented in this encounter Progress Notes Vannesa Dennison MA - 11/06/2020 4:35 PM CDT Clinic Administered Medication Documentation Administrations This Visit SUMAtriptan (IMITREX) injection 6 mg Admin Date 11/06/2020 Action Given Dose 6 mg Route Subcutaneous Site Left Arm Administered By Vannesa Dennison MA Ordering Provider: Naveen Casiano MD Patient Supplied?: No Injectable Medication Documentation Patient was given Sumatriptan. Prior to medication administration, verified patients identity using patient???s name and date of . Please see MAR and medication order for additional information. Patient instructed to remain in clinic for 15 minutes and report any adverse reaction to staff immediately . Was entire vial of medication used? Yes Vial/Syringe: Single dose vial Expiration Date: Feb 2022 Was this medication supplied by the patient? No Vannesa Dennison MA on 11/06/2020 at 3:46 PM Naveen Casiano MD - 11/06/2020 4:35 PM CDT Problem List Items Addressed This Visit Migraine with status migrainosus, not intractable, unspecified migraine type - Primary Hemicrania with photophobia and vomiting. Usually treated with amlodipine. Sumatriptan given with excellent result. Discussed triptan usage. Prescribed oral as well Relevant Medications SUMAtriptan (IMITREX) injection 6 mg (Completed) SUMAtriptan (IMITREX) 100 MG tablet BP 128/68 (BP Location: Right arm, Patient Position: Chair, Cuff Size: Adult Large) Pulse 75 Temp 98.6 ??F (37 ??C) (Oral) SpO2 96% CN II-XII grossly symmetric Imitrex given with excellent relief Naveen Casiano MD documented in this encounter Miscellaneous Notes Assessment & Plan Note - Naveen Casiano MD - 11/06/2020 4:07 PM CDTAssociated Problem(s): Migraine with status migrainosus, not intractable, unspecified migraine type Hemicrania with photophobia and vomiting. Usually treated with amlodipine. Sumatriptan given with excellent result. Discussed triptan usage. Prescribed oral as well documented in this encounter Plan of Treatment Upcoming Encounters Date Type Specialty Care Team Description 02/09/2022 Virtual Visit Surgery Mindi Llanes PA-C [address] [place] [address] (Wo rk) documented as of this encounter Visit Diagnoses Diagnosis Migraine with status migrainosus, not in tractable, unspecified migraine type - Primary documented in this encounter Administered Medications Inactive Administered Medications - up to 3 most recent administrations Medication Order MAR Action Action Date Dose Rate Site SUMAtriptan (IMITREX) injection Given 11/06/2020 3:42 PM CDT 6 m g Left Arm 6 mg 6 mg, Subcutaneous, ONCE, On Cyndi 11/06/20 at 1600, For 1 dose, Do not exceed 2 doses in 24 hours. documented in this encounter Additional Health Concerns Assessment Noted Time PHQ-9 Depression Total Score: 0 02/26/2020 1:30 PM FORECLOSURE SPECIALIST documented as of this encounter Care Teams Smoking Pipe Mounter Relationship Specialty Start Date End Date Nikita Gamble PCP - General Family Medicine 05/26/20 [facility] [address] [place], [place] [phone] Jocelyn Davidson RD Seasonal Sales Associate Dietitian, Registered 05/25/18 [facility] [place] [address] [address] Tamar Murphy APRN COOKING APPLIANCE REPAIR TECHNICIAN Assigned PCP 02/08/20 11/15/20 [address] [place] [address] documented as of this encounter
--- OUTSIDE RECORDS SUMMARY | 2022-01-11 20:18 | XMS_ITS | Encounter Summary ---
:1965 Author Organization [place] Address [address] [facility] [place] [address] Care Team Providers Name Role Phone Annette Alvarez KIM ADMINISTRATIVE JOB TITLES Unavailable Goran Lloyd Primary Care Provider oJcelyn Davidson RD Unavailable Tamar Murphy APRN ADMINISTRATIVE JOB TITLES Unavailable Encounter Details Date Type Department Care Team Description 03/25/2020 [facility] Tamar Murphy APRN [phone] [place] [address] (Wo rk) Social History Tobacco Use Types Packs/Day Years Used Date Smoking Tobacco: Never Smokeless Tobacco: Never Alcohol Use Standard Drinks/Week Comments Yes 0 (1 standard drink = 0.6 oz pure alcoho l) rare Sex Assigned at Date Recorded Female 03/04/2020 12:33 PM BANQUET DIRECTOR COVID-19 Exposure Response Date Recorded In the last month, have you been in contact with No / Unsure 03/05/2020 11:41 AM BANQUET DIRECTOR someone who was confirmed or suspected to have Coronavirus / COVID-19? documented as of this encounter Plan of Treatment Upcoming Encounters Date Type Specialty Care Team Description 02/09/2022 Virtual Visit Surgery Mindi Llanes PA-C [address] [facility] [address] [place] [address] (Wo rk) documented as of this encounter Visit Diagnoses Not on filedocumented in this encounter Additional Health Concerns Assessment Noted Time PHQ-9 Depression Total Score: 0 02/26/2020 1:30 PM BANQUET DIRECTOR documented as of this encounter Care Teams Car Ferry Master Relationship Specialty Start Date End Date Goran Lloyd PCP - General Family Practice 12/29/17 05/21/[address] [address] Annette Alvarez, Nurse Practitioner Clinical Nurse 03/22/17 10/21/20 WRAPPING MACHINE HELPER ADMINISTRATIVE JOB TITLES Specialist [address] [place], [place] [phone] Jocelyn Davidson RD De Ionizer Operator Dietitian, Registered 05/25/18 [facility] [place] [address] [place] [address] [place] [address] Tamar Murphy APRN Assigned PCP 02/08/20 1 ADMINISTRATIVE JOB TITLES [address] [place], [place] [phone] documented as of this encounter
--- OUTSIDE RECORDS SUMMARY | 2022-01-11 20:18 | XMS_ITS | Encounter Summary ---
:1965 Author Organization [place] Address [address] [facility] [place] [address] Care Team Providers Name Role Phone Jocelyn Davidson RD Unavailable Nikita Gamble Primary Care Provider Naveen Casiano MD Unavailable Harlan Lin MD Unavailable Unavailable Mikki Blevins MD Unavailable Mikki Blevins MD Unavailable Mindi Llanes PA-C Unavailable [phone] Reason for Visit Reason Onset Date Comments Diabetes Education 12/05/2020 Encounter Details Date Type Department Care Team Description 12/05/2020 Telephone [facility] Harlan Lin gail Education [place] Endocrinolog y MD Bass[place] [address] [facility] [place] [address] AVAILABLE [phone] Social History Tobacco Use Types Packs/Day Years Used Date Smoking Tobacco: Never Smokeless Tobacco: Never Alcohol Use Standard Drinks/Week Comments Yes 0 (1 standard drink = 0.6 oz pure alcoho l) rare Sex Assigned at Date Recorded Female 03/04/2020 12:33 PM MANUAL TESTER COVID-19 Exposure Response Date Recorded In the last month, have you been in contact with No / Unsure 12/03/2020 8:01 PM CDT someone who was confirmed or suspected to have Coronavirus / COVID-19? documented as of this encounter Miscellaneous Notes Telephone Encounter - Fang Graychhayadeuce - 12/05/2020 8:11 AM CDT Diabetes Education Scheduling Outreach #1: Call to patient to schedule. Left message with phone number to call to schedule, if pt calls back toschedule please schedule with Jocelyn Davidson. Plan for 2nd outreach attempt within 1 week. [place] Gray [place] [facility] Scheduling documented in this encounter Plan of Treatment Upcoming Encounters Date Type Specialty Care Team Description 02/09/2022 Virtual Visit Surgery Mindi Llanes PA-C [address] [facility] [address] [place] [address] (Wo rk) documented as of this encounter Visit Diagnoses Not on filedocumented in this encounter Additional Health Concerns Assessment Noted Time PHQ-9 Depression Total Score: 0 02/26/2020 1:30 PM MANUAL TESTER documented as of this encounter Care Teams Local Bulk Driver Relationship Specialty Start Date End Date Nikita Gamble PCP - General Family Medicine 05/26/20 [facility] [address] [place] [address] Control Clerk Dietitian, Registered 05/25/18 [facility] [address] [place] [address] [place] [address] Naveen Casiano MD Assigned PCP 11/16/20 [address] [place] [address] Harlan Lin Assigned Endocrinology 12/07/20 08/01/21 [place] Provider NO INFO AVAILABLE Mikki Blevins MD MD Endocrinology, 05/07/21 [address] [facility] Diabetes, and [place], [place] Metabolism [address] Mikki Blevins MD Assigned Endocrinology 08/02/21 [facility] [place], [place] [phone] Mindi Llanes Assigned Surgical 09/26/21 [facility] Provider [address] [place] [address] documented as of this encounter
--- OUTSIDE RECORDS SUMMARY | 2022-01-11 20:18 | XMS_ITS | Encounter Summary ---
:1965 Author Organization [place] Address [address] [facility] [place] [address] Care Team Providers Name Role Phone Jocelyn Davidson RENATA Unavailable Nikita Gamble Primary Care Provider Naveen Casiano MD Unavailable Harlan Lin MD Unavailable Unavailable Encounter Details Date Type Department Care Team Description 01/05/2021 Lab [facility] Typ e 1 diabetes mellitus with [facility] stage 3a chronic kidney [address] [facility] disease (H) [place], [place] [phone] Social History Tobacco Use Types Packs/Day Years Used Date Smoking Tobacco: Never Smokeless Tobacco: Never Alcohol Use Standard Drinks/Week Comments Yes 0 (1 standard drink = 0.6 oz pure alcoho l) rare Sex Assigned at Date Recorded 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 documented as of this encounter Plan of Treatment Upcoming Encounters Date Type Specialty Care Team Description 02/09/2022 Virtual Visit Surgery Mindi Llanes PA-C [address] [facility] [address] [place] [id number] (Wo rk) documented as of this encounter Procedures Procedure Name Priority Date/Time Associated Comments Diagnosis ALBUMIN RANDOM URINE Routine 01/05/2021 3:04 PM Type 1 diabete s Results for this QUANTITATIVE CDT mellitus with stage procedur e are in 3a chronic kidney the result s disease (H) section. HEMOGLOBIN A1C Routine 01/05/2021 3:04 PM Type 1 diabetes Resu lts for this CDT mellitus with stage procedur e are in 3a chronic kidney the result s disease (H) section. TSH WITH FREE T4 Routine 01/05/2021 3:03 PM Type 1 diabetes Re sults for this REFLEX CDT mellitus with stage procedur e are in 3a chronic kidney the result s disease (H) section. T4 FREE Routine 01/05/2021 3:03 PM Type 1 diabetes Result s for this CDT mellitus with stage procedur e are in 3a chronic kidney the result s disease (H) section. LIPID REFLEX TO Routine 01/05/2021 3:03 PM Type 1 diabetes Res ults for this DIRECT LDL PANEL CDT mellitus with stage proc edure are in 3a chronic kidney the result s disease (H) section. BASIC METABOLIC PANEL Routine 01/05/2021 3:03 PM Type 1 diabet es Results for this CDT mellitus with stage procedur e are in 3a chronic kidney the result s disease (H) section. documented in this encounter Results (ABNORMAL) Hemoglobin A1c (01/05/2021 3:04 PM CDT) Analysis Performed At Patho logist Time Signature Hemoglobin A1C 7.4 (H) 0.0 - 5.6 01/05/2021 [facility] % 3:47 PM CDT Comment: Normal <5.7% Prediabetes 5.7-6.4% ?? Diabetes 6.5% or higher Note: Adopted from ADA consensus guideli luisa. Specimen Anatomical Collection Method / Collection Time Recei olga Time (Source) Location / Volume Laterality Blood BLOOD SPECIMEN / Venipuncture / 01/05/2021 3:04 2020 3:04 Unknown Unknown PM CDT PM CDT Harlan Lin MD LAB - BLOOD ORDERABLES Performing Organization Address City/State/ZIP Code Phon e Number [facility] [place] [address] [phone] [place] [facility] [address] [facility] Lab (no room number, 1st floor of clinic) CR [facility] [place], [place] [phone] [facility] [phone] [address] [facility] Lab (no room number, 1st floor of [facility]) Albumin Random Urine Quantitative with Creat Ratio (01/05/2021 3:04 PM CDT) athologist Signature Creatinine 36 mg/dL 01/06/2021 [facility] Urine mg/dL 5:25 PM CDT Albumin Urine <5 mg/L 01/06/2021 [facility] mg/L 5:25 PM CDT Albumin Urine 01/06/2021 [facility] mg/g Cr 5:25 PM CDT Comment: Unable to calculate: ??Urine cr eatinine or albumin value below detectable level Specimen Anatomical Collection Method Collection Time Receive d Time (Source) Location / / Volume Laterality Urine URINE SPECIMEN / Non-blood 01/05/2021 3:04 PM 01/05 3:04 Unknown Collection / CDT PM CDT Unknown Harlan Lin MD LAB - URINE ORDERABLES Performing Organization Address City/State/[facility] Code Phon e Number O[facility] [place], [place] [phone] [facility] [phone] [place] [address] Lab (no room number, 1st floor of clinic) [facility] [place], [place] [phone] [place] [phone] [address] Lab (no room number, 1st floor of clinic) (ABNORMAL) T4 free (01/05/2021 3:03 PM CDT) athologist Signature Free T4 0.60 (L) 0.76 - 1.46 01/06/2021 [facility] ng/dL 9:37 AM CDT Specimen Anatomical Collection Method / Collection Time Recei olga Time (Source) Location / Volume Laterality Blood BLOOD SPECIMEN / Venipuncture / 01/05/2021 3:03 2020 3:04 Unknown Unknown PM CDT PM CDT Harlan Lin MD LAB - BLOOD ORDERABLES Performing Organization Address City/State/ZIP Code Phon e Number [facility] Clinic - [place], [place] [phone] [facility] [phone] [address] Lab (no room number, 1st floor of clinic) [facility] [place], [place] [phone] Clinic - [place] [phone], [facility] [address] Lab (no room number, 1st floor of clinic) (ABNORMAL) Lipid panel reflex to direct LDL Fasting (01/05/2021 3:03 PM CDT) [facility] gist Method Time Signature Cholesterol 203 (H) <200 01/06/2021 [facility] mg/dL 9:14 AM CDT Triglycerides 251 (H) <150 01/06/2021 [facility] mg/dL 9:14 AM CDT Direct Measure 53 >=50 01/06/2021 [facility] HDL mg/dL 9:14 AM CDT LDL Cholesterol 100 <=100 01/06/2021 [facility] Calculated mg/dL 9:14 AM CDT Non HDL 150 (H) <130 01/06/2021 [facility] Cholesterol mg/dL 9:14 AM CDT Patient Fasting > Yes 01/06/2021 [facility] RY 8hrs? 9:14 AM CDT Specimen Anatomical Collection Method / Collection Time Recei olga Time (Source) Location / Volume Laterality Blood BLOOD SPECIMEN / Venipuncture / 01/05/2021 3:03 2020 3:04 Unknown Unknown PM CDT PM CDT Narrative [facility] - 01/06/2021 9:14 AM CDT Cholesterol Desirable: ??<200 mg/dL Triglycerides Normal: ??Less than 150 mg/dL Borderline High: ??150-199 mg/dL High: ??200-499 mg/dL Very High: ??Greater than or equal to 50 0 mg/dL Direct Measure HDL Female: ??Greater than or equal to 50 mg /dL Male: ??Greater than or equal to 40 mg/d L LDL Cholesterol Desirable: ??<100mg/dL Above Desirable: ??100-129 mg/dL Borderline High: ??130-159 mg/dL High: ??160-189 mg/dL Very High: ??>= 190 mg/dL Non HDL Cholesterol Desirable: ??130 mg/dL Above Desirable: ??130-159 mg/dL Borderline High: ??160-189 mg/dL High: ??190-219 mg/dL Very High: ??Greater than or equal to 22 0 mg/dL Harlan Lin MD LAB - BLOOD ORDERABLES Performing Organization Address City/State/ZIP Code Phon e Number [facility] [place], [place] [phone] [facility] [phone] [place] [address] Lab (no room number, 1st floor of clinic) [facility] [place], [place] [phone] [facility] [place] [phone] [address] Lab (no room number, 1st floor of clinic) (ABNORMAL) BASIC METABOLIC PANEL (01/05/2021 3:03 PM CDT) [facility] gist Method Time Signature Sodium 134 133 - 144 01/06/2021 [facility] mmol/L 9:08 AM CDT Potassium 3.9 3.4 - 5.3 01/06/2021 [facility] mmol/L 9:08 AM CDT Chloride 99 94 - 109 01/06/2021 [facility] mmol/L 9:08 AM CDT Carbon Dioxide 28 20 - 32 01/06/2021 [facility] (CO2) mmol/L 9:08 AM CDT Anion Gap 7 3 - 14 01/06/2021 [facility] mmol/L 9:08 AM CDT Urea Nitrogen 33 (H) 7 - 30 01/06/2021 [facility] mg/dL 9:08 AM CDT Creatinine 1.93 (H) 0.52 - 01/06/2021 [facility] 1.04 mg/dL 9:08 AM CDT Calcium 9.5 8.5 - 10.1 01/06/2021 [facility] mg/dL 9:08 AM CDT Glucose 163 (H) 70 - 99 01/06/2021 [facility] mg/dL 9:08 AM CDT GFR Estimate 29 (L) >60 01/06/2021 [facility] mL/min/1.7 9:08 AM CDT 3m2 Comment: As of October 05, 2020, eGFR is ca lculated by the CKD-EPI creatinine equation, without race adjustment. eGFR can be inf luenced by muscle mass, exercise, and diet. The reported eGFR is an estimation only and is only applicable if the renal function is stable. Specimen Anatomical Collection Method / Collection Time Recei olga Time (Source) Location / Volume Laterality Blood BLOOD SPECIMEN / Venipuncture / 01/05/2021 3:03 2020 3:04 Unknown Unknown PM CDT PM CDT Harlan Lin MD LAB - BLOOD ORDERABLES Performing Organization Address [facility] Phon e Number [facility]ORY [place], [place] [phone] [facility] [phone] [place] [address] Lab (no room number, 1st floor of clinic) [facility] [place], [place] [phone] [facility] [address] Lab (no room number, 1st floor of clinic) (ABNORMAL) TSH with free T4 reflex (01/05/2021 3:03 PM CDT) P athologist Signature TSH 8.38 (H) 0.40 - 4.00 01/06/2021 [facility] mU/L 9:21 AM CDT Specimen Anatomical Collection Method / Collection Time Recei olga Time (Source) Location / Volume Laterality Blood BLOOD SPECIMEN / Venipuncture / 01/05/2021 3:03 2020 3:04 Unknown Unknown PM CDT PM CDT Harlan Lin MD LAB - BLOOD ORDERABLES Performing Organization Address [facility] Phon e Number [facility] [place], [place] [phone] [facility] [address] [place] [address] Lab (no room number, 1st floor of clinic) [facility] [place], [place] [phone] [place] [phone] [address] Lab (no room number, 1st floor of clinic) documented in this encounter Visit Diagnoses Diagnosis Type 1 diabetes mellitus with stage 3a c hronic kidney disease (H) documented in this encounter Additional Health Concerns Assessment Noted Time PHQ-9 Depression Total Score: 0 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
--- OUTSIDE RECORDS SUMMARY | 2022-01-11 20:18 | XMS_ITS | Encounter Summary ---
:1965 Author Organization [place] Address [address] [facility] [place] [address] Care Team Providers Name Role Phone Jocelyn Davidson Bran YANEZ Unavailable Nikita Gamble Primary Care Provider Naveen Casiano MD Unavailable Encounter Details Date Type Department Care Team Description 12/02/[address] 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 documented as of this encounter Plan of Treatment Upcoming Encounters Date Type Specialty Care Team Description 02/09/2022 Virtual Visit Surgery Mindi Llanes PA-C [address] [place] [id number] (Wo rk) documented as of this encounter Procedures Procedure Name Priority Date/Time Associated Diagnosis Comme nts HEMOGLOBIN A1C Routine 12/02/2020 3:30 PM Type 1 diabetes Resu lts for this CDT mellitus (H) procedure are i n the results section . documented in this encounter Results (ABNORMAL) Hemoglobin A1c (12/02/2020 3:30 PM CDT) Analysis Performed At Patho logist Time Signature Hemoglobin A1C 7.3 (H) 0.0 - 5.6 12/02/2020 [facility] % 3:44 PM CDT Comment: Normal <5.7% Prediabetes 5.7-6.4% ?? Diabetes 6.5% or higher Note: Adopted from ADA consensus guideli luisa. Specimen Anatomical Collection Method / Collection Time Recei olga Time (Source) Location / Volume Laterality Blood STRUCTURE OF RIGHT Venipuncture / 12/02/2020 3:30 09/0 09/2020 3:30 UPPER LIMB / Unknown PM CDT PM CDT Unknown Harlan Lin MD LAB - BLOOD ORDERABLES Performing Organization Address City/State/ZIP Code Phon [place] [phone] [facility]-[phone] [facility] [address] [facility] Lab (no room number, 1st floor of clinic) [facility] [place], [place] [phone] [facility] [phone] [address] [facility] Lab (no room number, 1st floor of clinic) documented in this encounter Visit Diagnoses Diagnosis Type 1 diabetes mellitus (H) Type I (juvenile type) diabetes mellitus without mention of complication, not stated as uncontrolled documented in this encounter Additional Health Concerns Assessment Noted Time PHQ-9 Depression Total Score: 0 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
--- OUTSIDE RECORDS SUMMARY | 2022-01-11 20:18 | XMS_ITS | Encounter Summary ---
:1965 Author Organization [place] Address [address] [facility] [place] [address] Care Team Providers Name Role Phone StuartJocelyn RD Unavailable Nikita Gamble Primary Care Provider Naveen Casiano MD Unavailable Reason for Referral Patient Education (Routine) - Closed Specialty Diagnoses / Procedures Referred By Contact Refer red To Contact Diabetes Education Diagnoses Type 1 diabetes mellitus with stage 3a chronic kidney disease (H) Harlan Lin MD NO INFO AVAILABLE Referral ID Status Reason Start Date Expiration Date Visits Requ ested Visits Authorized [id number] Closed 12/03/2020 12/03/2021 1 1 Scheduling Instructions Jocelyn Davidson please. Reason for Visit Reason Comments Establish Care Diabetes Encounter Details Date Type Department Care Team Description 12/03/2020 Virtual Visit [facility] Harlan Lin Type 1 diabetes mellitus with stage 3a chronic kidney disease (H) (Primary Dx); Clinic Kenny Banegas MD 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; [address] [place] [address] NO INFO Insulin pump in place NE AVAILABLE SHARAN Cox [phone] Social History Tobacco Use Types Packs/Day Years Used Date Smoking Tobacco: Never Smokeless Tobacco: Never Tobacco Cessation: Counseling Given: No Alcohol Use Standard Drinks/Week Comments Yes 0 (1 standard drink = 0.6 oz pure alcoho l) rare Sex Assigned at Date Recorded 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 documented as of this encounter Progress Notes Harlan Lni MD - 12/03/2020 11:00 AM CDT Marnie is a 55 year old who is being evaluated via a billable video visit. How would you like to obtain your AVS? MyChart If the video visit is dropped, the invitation should be resent by: Will anyone else be joining your video visit? No Video Start Time: 11:03 AM CC: Type 1 DM HPI: Patient presents for management of type 1 DM. Diagnosed at age 7. She is using a Tslim pump and DEXCOM CGM. However, she is not in Control IQ. I am unable to connect to her information online today. The email she has for her Out[employer] account is listed as not being found. Remarks on prior issues with lows that resolved with lowering basal rates but has also taken to having scheduled snacks. She does not give insulin for these snacks. Notes she is having highs after her afternoon snack at 1545. Also having highs at 6840-6503. Dinner is 2454-9299. ROS: 10 point ROS neg other than the symptoms noted above in the HPI. PMH: Patient Active Problem List Diagnosis ??? Type 1 diabetes mellitus with complications (H) ??? Uncontrolled type 1 diabetes with renal manifestation (H) ??? Acquired hypothyroidism ??? Benign essential hypertension ??? Migraine with status migrainosus, not intractable, unspecified migraine type Meds: Current Outpatient Medications Medication ??? acetone urine (KETOSTIX) test strip ??? aspirin 81 MG tablet ??? blood glucose (ACCU-CHEK RADHA PLUS) test strip ??? blood glucose monitoring (ACCU-CHEK FASTCLIX) lancets ??? blood glucose monitoring (NO BRAND SPECIFIED) test strip ??? Calcium Carb-Cholecalciferol (CALCIUM + D3 PO) ??? Citalopram Hydrobromide (CELEXA PO) ??? glucagon 1 MG kit ??? insulin aspart (NOVOLOG VIAL) 100 UNITS/ML vial ??? insulin degludec (TRESIBA) 200 UNIT/ML pen ??? insulin pen needle (B-D U/F) 31G X 5 MM miscellaneous ??? INSULIN PUMP - OUTPATIENT ??? insulin syringe-needle U-100 (30G X 1/2 0.5 ML) 30G X 1/2 0.5 ML miscellaneous ??? levothyroxine (SYNTHROID/LEVOTHROID) 175 MCG tablet ??? LISINOPRIL PO ??? methocarbamol (ROBAXIN) 500 MG tablet ??? pregabalin (LYRICA) 75 MG capsule ??? Pyridoxine HCl (VITAMIN B6 PO) ??? sennosides (SENOKOT) 8.6 MG tablet ??? SUMAtriptan (IMITREX) 100 MG tablet ??? Tolterodine Tartrate (DETROL PO) ??? Topiramate (TOPAMAX PO) No current facility-administered medications for this visit. FHX: Sister has type 2 DM. Father had type 2 DM. 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 Exam: GENERAL: Healthy, alert and no distress EYES: Eyes grossly normal to inspection. No discharge or erythema, or obvious scleral/conjunctival abnormalities. HENT: Normal cephalic/atraumatic. External ears, nose and mouth without ulcers or lesions. No nasal drainage visible. RESP: No audible wheeze, cough, or visible cyanosis. No visible retractions or increased work of breathing. MS: No gross musculoskeletal defects noted. Normal range of motion. No visible edema. SKIN: Visible skin clear. No significant rash, abnormal pigmentation or lesions. NEURO: Cranial nerves grossly intact. Mentation and speech appropriate for age. PSYCH: Mentation appears normal, affect normal/bright, judgement and insight intact, normal speech and appearance well-groomed. A/P: Type 1 DM - Chronic and well controlled. Sounds like her basal rate might still be too high. Unable to connect to her T Slim account today. -I recommend you touch base with Jocelyn Davidson about control IQ. -Have Jocelyn help you upload your pump. -Consider a test meal for dinner if cannot figure out post dinner highs. -Labs in 3 months. See me after. -ASA taking. -BP: controlled. -Lipids: controlled aside from high triglycerides in 02/2020. ACC/AHA risk is 4.3%. Statin discussed. Patient will consider. -Microalbumin normal in 02/2020. CKD stage 3. 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 On lisinopril. -TSH normal in 02/2020. On levothyroxine. Continue levothyroxine. Labs in 3 months. -Eyes: moderate NPDR in 04/2020. -Smoking: none. Hypothyroidism - as above. Harlan Lin M.D Video-Visit Details Type of service: Video Visit Video End Time:11:31 AM Originating Location (pt. Location): Other office Distant Location (provider location): [facility] Platform used for Video Visit: Doximro Lin MD on 12/03/2020 at 11:31 AM documented in this encounter Plan of Treatment Upcoming Encounters Date Type Specialty Care Team Description 02/09/2022 Virtual Visit Surgery Mindi Llanes PA-C [address] [place] [address] (Wo rk) Scheduled Orders Name Type Priority Associated Diagnoses Order S chedule Hemoglobin A1c Lab Routine Type 1 diabetes mellitus w ith Expected: 01/02/2021 stage 3a chronic kidney (Chrissy roximate), Expires: disease (H) 12/03/2021 Scheduled Referrals Name Type Priority Associated Diagnoses Order S chedule AMB Adult Diabetes Referral Routine Type 1 diabetes mellit Expected: 12/03/2020 Educator Referral with stage 3a chronic ( Approximate), kidney disease (H) Expires: 12/03/2021 documented as of this encounter Results (ABNORMAL) Hemoglobin A1c (01/05/2021 [...] LAB - BLOOD ORDERABLES Performing Organization Address City/[facility]/ZIP Code Phon [place] [address] [facility] [address] [facility] Lab (no room number, 1st floor of clinic) CR [facility]ATORY [place], [place] [phone] [facility] [address] Lab [address] [facility] Lab (no room number, 1st floor of clinic) Albumin Random Urine Quantitative with Creat Ratio [...] LAB - URINE ORDERABLES Performing Organization Address City/[facility]/ZIP [facility] Phon e Number OX LABORATORY [place], [place] [phone] [facility] [address] [place] [address] Lab (no room number, 1st floor of clinic) [facility] [place], [place] [phone] [facility] [phone], [facility] [address] Lab (no room number, 1st floor of clinic) (ABNORMAL) Lipid panel reflex to direct LDL Fasting (01/05/2021 3:03 PM CDT) Patholo gist Method Time Signature Cholesterol 203 (H) [...] City/State/ZIP Code Phon e Number OX LABORATORY [facility] [place], [place] [phone] [facility] [address] Lab (no room number, 1st floor of clinic) [facility] [place], [place] [phone] [facility] [address] [address] Lab (no room number, 1st floor of clinic) (ABNORMAL) BASIC METABOLIC PANEL (01/05/2021 3:03 PM CDT) [facility] gist Method Time Signature Sodium 134 [...] LAB - BLOOD ORDERABLES Performing Organization Address City/[facility]/ZIP [facility] Phon e Number OX LABORATORY [facility] [place], [place] [phone] [facility] [address] Lab (no room number, 1st floor of clinic) [facility]ATORY [place], [place] [phone] [facility] [phone] [address] Lab (no room number, 1st floor [...] LAB - BLOOD ORDERABLES Performing Organization Address [facility] Phon e Number OX LABORATORY [facility] [place], [place] [phone] [facility] [address] Lab (no room number, 1st floor of clinic) [facility]AT[facility] [place], [place] [phone] 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
--- OUTSIDE RECORDS SUMMARY | 2022-01-11 20:18 | XMS_ITS | Encounter Summary ---
:1965 Author Organization [place] Address [address] [place] [address] Care Team Providers Name Role Phone Jocelyn Davidson Bran YANEZ Unavailable Nikita Gamble Primary Care Provider Naveen Casiano MD Unavailable Harlan Lin MD Unavailable Unavailable Reason for Visit Reason Comments Medication Refill Encounter Details Date Type Department Care Team Description 12/10/2020 Refill [facility] Annette Alvarez, Medication Refill [phone] [place] [address] (Wo rk) Social History Tobacco Use Types Packs/Day Years Used Date Smoking Tobacco: Never Smokeless Tobacco: Never Alcohol Use Standard Drinks/Week Comments Yes 0 (1 standard drink = 0.6 oz pure alcoho l) rare Sex Assigned at Date Recorded Female 03/04/2020 12:33 PM [place] COVID-19 Exposure Response Date Recorded In the last month, have you been in contact with No / Unsure 12/03/2020 8:01 PM CDT someone who was confirmed or suspected to have Coronavirus / COVID-19? documented as of this encounter Miscellaneous Notes Telephone Encounter - Jenae Tamez RN - 12/10/2020 1:44 PM CDT Routing refill request to provider for review/approval because: Drug not on the [facility] refill protocol STEPHANIE Guidry, RN [facility] documented in this encounter Plan of Treatment Upcoming Encounters Date Type Specialty Care Team Description 02/09/2022 Virtual Visit Surgery Mindi Llanes PA-C [address] [facility] [address] [place] [address] (Wo rk) documented as of this encounter Visit Diagnoses Diagnosis Type 1 diabetes mellitus with stage 3a c hronic kidney disease (H) - Primary documented in this encounter Additional Health Concerns Assessment Noted Time PHQ-9 Depression Total Score: 0 02/26/2020 1:30 PM [place] documented as of this encounter Care Teams Expedition Supervisor Relationship Specialty Start Date End Date Nikita Gamble PCP - General Family Medicine 05/26/20 [facility] [address] [place] [address] Sourcing Assistant Dietitian, Registered 05/25/[address] [place] [address] Naveen Casaino MD Assigned PCP 11/16/20 [address] [place], [place] [phone] Harlan Lin Assigned Endocrinology 12/07/20 08/01/21 MD [facility] Provider NO INFO AVAILABLE documented as of this encounter
--- OUTSIDE RECORDS SUMMARY | 2022-01-11 20:18 | XMS_ITS | Encounter Summary ---
:1965 Author Organization [place] Address [facility] [place] [address] Care Team Providers Name Role Phone Annette Alvarez KIM WIND TUNNEL MECHANIC Unavailable [phone] Unavailable Tamar Murphy APRN WIND TUNNEL MECHANIC Unavailable Nikita Gamble Primary Care Provider Reason for Referral Diagnostic Imaging XR (Routine) - Closed Specialty Diagnoses / Procedures Referred By Contact Refer red To Contact Diagnoses Positive QuantiFERON-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 Mj Tenorio MD Procedures XR Chest 1 View, [facility] [address] [place], [place] [id number] 4 Referral ID Status Reason Start Date Expiration Date Visits Requ ested Visits Authorized [id number] Closed 10/15/2020 10/15/2021 1 1 Reason for Visit Diagnostic Imaging XR (Routine) - Closed Specialty Diagnoses / Procedures Referred By Contact Refer red To Contact Diagnoses Positive QuantiFERON-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 Mj Tenorio MD Procedures XR Chest 1 View, [employer] [place] [id number] 4 Referral ID Status Reason Start Date Expiration Date Visits Requ ested Visits Authorized [id number] Closed 10/15/2020 10/15/2021 1 1 Encounter Details Date Type Department Care Team Description 10/15/2020 Hospital Encounter [facility] Mj Tenorio Positive [facility] MD Oleagrio QuantiFERON-TB Gold [address] test [facility] [phone] [place], [place] [phone] [address] Social History Tobacco Use Types Packs/Day Years Used Date Smoking Tobacco: Never Smokeless Tobacco: Never Alcohol Use Standard Drinks/Week Comments Yes 0 (1 standard drink = 0.6 oz pure alcoho l) rare Sex Assigned at Date Recorded Female 03/04/2020 12:33 PM PEDIATRIC CARE COORDINATOR COVID-19 Exposure Response Date Recorded In the last month, have you been in contact with No / Unsure 10/15/2020 9:21 AM CDT someone who was confirmed or suspected to have Coronavirus / COVID-19? documented as of this encounter Medications at Time of Discharge Medication Sig Dispensed Refills Start Date End Date aspirin 81 MG tablet Take by mouth daily 0 blood glucose USE TO TEST BLOOD 200 each 3 04/16/2019 (ACCU-CHEK SHANTEL PLUS) GLUCOSE LEVELS 2TIMES test stripIndications: DAILY OR DIRECTED. Uncontrolled type 1 diabetes with renal manifestation, Type 1 diabetes mellitus with complications (H) Calcium 0 Carb-Cholecalciferol (CALCIUM + D3 PO) Citalopram Hydrobromide Take 40 mg by mouth 0 (CELEXA PO) daily insulin degludec For pump failure 15 mL 1 03/05/2020 (TRESIBA) 200 UNIT/ML only. Inject 39 units pen every 24 hours. insulin pen needle (B-D Use 4 daily or as 100 each 3 03/05 U/F) 31G X 5 MM directed. miscellaneous INSULIN PUMP - Date last updated: 02/21/19 0 01/27 OUTPATIENTIndications: T:Slim x2 Type 1 diabetes BASAL RATES and times: mellitus with 12 AM (midnight): 1.7 units/hour complications (H) CARB RATIO and times: 12 AM (midnight): 5.5 Corection Factor (Sensitivity) and times: 12 AM (midnight): 23 mg/dL BLOOD GLUCOSE TARGET and times: 12 AM (midnight): 120 Active Insulin Time: 4 hours Using T:Connect: Yes TEVIZZcom Sharing Code: [id number] insulin syringe-needle Use 1 syringe as 20 each 020 U-100 (30G X 1/2 0.5 needed, during pump ML) 30G X 1/2 0.5 ML failure. miscellaneousIndication s: Type 1 diabetes mellitus with complications (H) methocarbamol (ROBAXIN) Take 1 tablet (500 40 tablet 0 04/2020 500 MG mg) by mouth 4 times tabletIndications: Back daily as needed for muscle spasm muscle spasms Pyridoxine HCl (VITAMIN 0 B6 PO) sennosides (SENOKOT) Take 2 tablets by 0 8.6 MG tablet mouth daily Topiramate (TOPAMAX PO) Take 200 mg by mouth 0 daily acetone urine Use one strip as 100 each 11 03/05/202012/10 (KETOSTIX) test strip needed to test urine for ketones. Do not dispense until requested by patient. benzonatate (TESSALON) Take 1 capsule (200 30 capsule 0 03/201911/06/2020 200 MG mg) by mouth 2 times capsuleIndications: daily as needed for Cough cough BIOTIN PO 0 11/06/2020 blood glucose Use to test blood 408 each 3 02/04/2017 05/0 05/2021 monitoring (ACCU-CHEK sugar 4 times daily FASTCLIX) or as directed. lancetsIndications: Type 1 diabetes mellitus with complications (H), Uncontrolled type 1 diabetes mellitus with stage 3 chronic kidney disease, Flatulence, eructation, and gas pain, PCOS (polycystic ovarian syndrome) blood glucose Use to test blood 200 strip 5 01/27/201708/27 monitoring (NO BRAND sugars 4-8 times SPECIFIED) test daily or as directed. stripIndications: Type Accu-Chek Shantel Plus 1 diabetes mellitus with complications (H), Uncontrolled type 1 diabetes mellitus with stage 3 chronic kidney disease glucagon 1 MG INJECT 1 MG BY 2 each 0 03/05/2020 022 kitIndications: INTRAMUSCULAR ROUTE Hypothyroidism due to NEEDED FOR LOW acquired atrophy of BLOOD SUGAR. Do not thyroid dispense until requested by patient. guaiFENesin-codeine Take 5-10 mLs by 250 mL 0 02/27/2020 11/06/2020 (ROBITUSSIN AC) 100-10 mouth every 4 hours MG/5ML as needed for cough solutionIndications: Cough insulin aspart (NOVOLOG For insulin pump use. 110 mL 3 1 05/06/2019 03/22/2021 VIAL) 100 UNITS/ML vial Up to 125 units per day. levothyroxine TAKE ONE TABLET BY 90 tablet 2 06/05/2020 (SYNTHROID/LEVOTHROID) MOUTH ONE TIME DAILY 175 MCG tabletIndications: Hypothyroidism due to acquired atrophy of thyroid LISINOPRIL PO Take 10 mg by mouth 0 pregabalin (LYRICA) 75 Take 1 capsule (75 0 11/1009/22/2021 MG capsuleIndications: mg) by mouth 2 times Diabetic polyneuropathy daily associated with type 1 diabetes mellitus (H) Tolterodine Tartrate Take 2 mg by mouth 0 09/22/2021 (DETROL PO) daily TRAMADOL HCL PO Take 50 mg by mouth 0 12/03/2020 every 6 hours as needed for moderate to severe pain Takes 1-2 tabs every 6 hours documented as of this encounter Plan of Treatment Upcoming Encounters Date Type Specialty Care Team Description 02/09/2022 Virtual Visit Surgery Mindi Llanes PA-C [address] [place] [address] (Wo rk) documented as of this encounter Procedures Procedure Name Priority Date/Time Associated Diagnosis Comme nts XR CHEST 1 VIEW, Routine 10/15/2020 9:33 AM Positive Resul ts for this [employer]OYEE [employer] CDT QuantiFERON-TB Gold proce dure are in test the results section. documented in this encounter Results XR Chest 1 View, Employee Health (10/15/2020 9:33 AM CDT) Anatomical Region Laterality Modality Chest Digital Radiography Specimen (Source) Anatomical Location Collection Method / Collectio n Time Received Time / Laterality Volume Impressions 10/15/2020 9:56 AM CDT IMPRESSION: Unremarkable single view of the chest. No evidence of active pulmonary tuberculosis. SAIDA WATSON MD Narrative 10/15/2020 9:56 AM CDT CHEST ONE VIEW ??10/15/2020 9:33 AM HISTORY: ??Positive QuantiFERON-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. COMPARISON: 02/26/2020. Procedure Note Saida Watson MD - 10/15/2020Forma tting of this note might be different from the original. CHEST ONE VIEW 10/15/2020 9:33 AM HISTORY: Positive QuantiFERON-TB Gold te st. COMPARISON: 02/26/2020. IMPRESSION: Unremarkable single view of the chest. No evidence of active pulmonary tuberculosis. SAIDA WATSON MD Mj Tenorio MD IMG DIAGNOSTIC IMAGING ORDER DEJUAN documented in this encounter Visit Diagnoses Diagnosis Positive QuantiFERON-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 Nonspecific reaction to cell mediated im munity measurement of gamma interferon antigen response without active tubercul osis documented in this encounter Additional Health Concerns Assessment Noted Time PHQ-9 Depression Total Score: 0 02/26/2020 1:30 PM PEDIATRIC CARE COORDINATOR documented as of this encounter Care Teams House Builder Relationship Specialty Start Date End Date Nikita Gamble PCP - General Family Medicine 05/26/20 [facility] [address] [place] [address] Annette Alvarez, Nurse Practitioner Clinical Nurse 03/22/17 10/21/20 LEADER WRITER WIND TUNNEL MECHANIC Specialist [address] [place] [address] Crushed Stone Grader Dietitian, Registered 05/25/[address] [facility] [place] [address] Tamar Murphy APRN Assigned PCP 02/08/20 1 WIND TUNNEL MECHANIC [address] [place], [place] [id number] documented as of this encounter
--- OUTSIDE RECORDS SUMMARY | 2022-01-11 20:18 | XMS_ITS | Encounter Summary ---
:1965 Author Organization [place] Address [address] [facility] [place] [address] Care Team Providers Name Role Phone Annette Alvarez KIM MARKING STITCHER Unavailable Jocelyn Davidson RD Unavailable Tamar Murphy APRN MARKING STITCHER Unavailable Nikita Gamble Primary Care Provider Encounter Details Date Type Department Care Team Description 09/04/2020 Virtual Visit [facility] Kalpesh Salmon, Back muscle spasm Clinic [facility] (Primary Dx) [address] [place] [phone] Social History Tobacco Use Types Packs/Day Years Used Date Smoking Tobacco: Never Smokeless Tobacco: Never Alcohol Use Standard Drinks/Week Comments Yes 0 (1 standard drink = 0.6 oz pure alcoho l) rare Sex Assigned at Date Recorded Female 03/04/2020 12:33 PM INTELLIGENCE AGENT documented as of this encounter Progress Notes Kalpesh Salmon PA-C - 09/04/2020 5:30 PM CDT Marnie is a 55 year old who is being evaluated via a billable telephone visit. Assessment & Plan Back muscle spasm Trial Robaxin. Use caution when driving. - methocarbamol (ROBAXIN) 500 MG tablet; Take 1 tablet (500 mg) by mouth 4 times daily as needed formuscle spasms No follow-ups on file. Kalpesh Salmon PA-C [facility] PRATIBHA Dye is a 55 year old who presents for the following health issues HPI Back Pain Onset/Duration: 1 week Description: Location of pain: low back bilateral Character of pain: cramping Pain radiation: radiates into the right leg and radiates into the left leg New numbness or weakness in legs, not attributed to pain: no Intensity: moderate Progression of Symptoms: same History: Specific cause: fall Pain interferes with job: no History of back problems: no prior back problems Any previous MRI or X-rays: None Sees a specialist for back pain: No Alleviating factors: Improved by: acetaminophen (Tylenol) and heat Precipitating factors: Worsened by: Nothing Therapies tried and outcome: acetaminophen (Tylenol) Accompanying Signs & Symptoms: Risk of Fracture: None Risk of Cauda Equina: None Risk of Infection: None Risk of Cancer: None Risk of Ankylosing Spondylitis: Onset at age <35, male, AND morning back stiffness no Review of Systems Constitutional, HEENT, cardiovascular, pulmonary, gi and gu systems are negative, except as otherwise noted. Objective Vitals: No vitals were obtained today due to virtual visit. Physical Exam healthy, alert and no distress PSYCH: Alert and oriented times 3; coherent speech, normal rate and volume, able to articulate logical thoughts, able to abstract reason, no tangential thoughts, no hallucinations or delusions Her affect is normal and pleasant RESP: No cough, no audible wheezing, able to talk in full sentences Remainder of exam unable to be completed due to telephone visits Phone call duration: 5 minutes documented in this encounter Miscellaneous Notes Addendum Note - Kalpesh Salmon PA-C - 09/04/2020 5:30 PM CDT Addended by: KALPESH SALMON on: 09/26/2020 11:03 AM Modules accepted: Orders documented in this encounter Plan of Treatment Upcoming Encounters Date Type Specialty Care Team Description 02/09/2022 Virtual Visit Surgery Mindi Llanes PA-C [address] [facility] [address] [place] [id number] (Wo rk) documented as of this encounter Visit Diagnoses Diagnosis Back muscle spasm - Primary Other symptoms referable to back documented in this encounter Additional Health Concerns Assessment Noted Time PHQ-9 Depression Total Score: 0 02/26/2020 1:30 PM INTELLIGENCE AGENT documented as of this encounter Care Teams Insurance Sales Executive Relationship Specialty Start Date End Date Nikita Gamble PCP - General Family Medicine 05/26/20 [facility] [address] [place] [address] Annette Alvarez, Nurse Practitioner Clinical Nurse 03/22/17 10/21/20 ELECTRONIC COMPONENT PROCESSOR MARKING STITCHER Specialist [address] [place] [address] Tobacco Sieve Operator Dietitian, Registered 05/25/18 [facility] [place] [address] Tamar Murphy APRN Assigned PCP 02/08/20 1 MARKING STITCHER [address] [place] [address] documented as of this encounter
--- OUTSIDE RECORDS SUMMARY | 2022-01-11 20:18 | XMS_ITS | Encounter Summary ---
:1965 Author Organization [place] Address [facility] [place] [address] Care Team Providers Name Role Phone Jocelyn Davidson RENATA Unavailable Tamar Murphy APRN AUTOMATIC NAILING MACHINE OPERATOR Unavailable Nikita Gamble Primary Care Provider Reason for Visit Reason Onset Date Comments Orders 10/22/2020 labs Encounter Details Date Type Department Care Team Description 10/22/2020 Telephone [facility] Naveed Lin Orders (labs) Kenny Banegas MD [address] [facility] NO INFO AVAILABLE [place] [phone] Social History Tobacco Use Types Packs/Day Years Used Date Smoking Tobacco: Never Smokeless Tobacco: Never Alcohol Use Standard Drinks/Week Comments Yes 0 (1 standard drink = 0.6 oz pure alcoho l) rare Sex Assigned at Date Recorded Female 03/04/2020 12:33 PM GLASSWARE VERIFIER COVID-19 Exposure Response Date Recorded In the last month, have you been in contact with No / Unsure 10/15/2020 9:21 AM CDT someone who was confirmed or suspected to have Coronavirus / COVID-19? documented as of this encounter Miscellaneous Notes Telephone Encounter - Cristina Gaines RN - 10/22/2020 2:43 PM CDT Called and left a detailed message informing patient that Dr. Lin would like a hgbA1C done prior to her upcoming visit. Augusto Forbes RN....10/22/2020 2:43 PM Telephone Encounter - Cristina Gaines RN - 10/22/2020 2:30 PM CDT Per routing comment: Only HbA1C needed at this time. Harlan Lin MD on 10/22/2020 at 2:03 PM Telephone Encounter - Cristina Gaines RN - 10/22/2020 1:08 PM CDT Forwarded message to Dr. Lin to see if any labs can be ordered prior to patient's visit on 12/03/20. Patient has visit to establish care for type 1 diabetes. Augusto Forbes RN....10/22/2020 1:09 PM Telephone Encounter - Liberty Rader - 10/22/2020 12:51 PM CDT M [facility] Call Center Phone Message May a detailed message be left on voicemail: yes Reason for Call: Order(s): Other: Reason for requested: labs for upcoming appt 12/03/20 Date needed: whenever possible Provider name: Delia Pt would like A1C lab, as well as any other labs placed in system for upcoming appt 12/03/20. Pt previously seen by Dr. Annette Alvarez. Please send Retsly message when pt can schedule labs. Action Taken: Message routed to: Other: Endo Travel Screening: Not Applicable documented in this encounter Plan of Treatment Upcoming Encounters Date Type Specialty Care Team Description 02/09/2022 Virtual Visit Surgery Mindi Llanes PA-C [address] [facility] [address] [place] [address] (Wo rk) documented as of this encounter Results (ABNORMAL) Hemoglobin A1c (12/02/2020 [...] City/State/ZIP Code Phon [place] [address] [phone] [place] [facility] [address] [facility] Lab (no room number, 1st floor of clinic) CR LAB[facility] [place], [place] [phone] [facility] [phone] Lab [id number] [place] [address] Lab (no room number, 1st floor of clinic) documented in this encounter Visit Diagnoses Diagnosis Type 1 diabetes mellitus (H) - Primary Type I (juvenile type) diabetes mellitus without mention of complication, not stated as uncontrolled documented in this encounter Additional Health Concerns Assessment Noted Time PHQ-9 Depression Total Score: 0 02/26/2020 1:30 PM GLASSWARE VERIFIER documented as of this encounter Care Teams Telesales Manager Relationship Specialty Start Date End Date Nikita Gamble PCP - General Family Medicine 05/26/20 [facility] [address] [place], [place] [id number] Jocelyn Davidson RD Social Services Director Dietitian, Registered 05/25/18 [facility] [place] [address] [address] Tamar Murphy APRN AUTOMATIC NAILING MACHINE OPERATOR Assigned PCP 02/08/20 11/15/20 [address] [place] [address] documented as of this encounter
--- OUTSIDE RECORDS SUMMARY | 2022-01-11 20:18 | XMS_ITS | Encounter Summary ---
:1965 Author Organization [place] Address [address] [facility] [place] [address] Care Team Providers Name Role Phone Annette Alvarez KIM WEB ASSISTANT Unavailable [phone] Unavailable Tamar Murphy APRN WEB ASSISTANT Unavailable Nikita aGmble Primary Care Provider Encounter Details Date Type Department Care Team Description 10/15/2020 Travel Social History Tobacco Use Types Packs/Day Years Used Date Smoking Tobacco: Never Smokeless Tobacco: Never Alcohol Use Standard Drinks/Week Comments Yes 0 (1 standard drink = 0.6 oz pure alcoho l) rare Sex Assigned at Date Recorded Female 03/04/2020 12:33 PM GREY IRON MOLDER COVID-19 Exposure Response Date Recorded In the last month, have you been in contact with No / Unsure 10/15/2020 9:21 AM CDT someone who was confirmed or suspected to have Coronavirus / COVID-19? documented as of this encounter Plan of Treatment Upcoming Encounters Date Type Specialty Care Team Description 02/09/2022 Virtual Visit Surgery Mindi Llanes PA-C [address] [place] [id number] (Wo rk) documented as of this encounter Visit Diagnoses Not on filedocumented in this encounter Additional Health Concerns Assessment Noted Time PHQ-9 Depression Total Score: 0 02/26/2020 1:30 PM GREY IRON MOLDER documented as of this encounter Care Teams Laborer Concrete Plant Relationship Specialty Start Date End Date Nikita Gamble PCP - General Family Medicine 05/26/20 [facility] [address] [place] [address] Annette Alvarez, Nurse Practitioner Clinical Nurse 03/22/17 10/21/20 MARKETING DEVELOPMENT REPRESENTATIVE WEB ASSISTANT Specialist [address] [place], [place] [phone] Jocelyn Davidson RD Mailing Manager Dietitian, Registered 05/25/18 [facility] [place] [place] [address] Tamar Murphy APRN Assigned PCP 02/08/20 1 WEB ASSISTANT [address] [place] [address] documented as of this encounter
--- OUTSIDE RECORDS SUMMARY | 2022-01-11 20:18 | XMS_ITS | Encounter Summary ---
:1965 Author Organization [place] Address [address] [facility] [place] [address] Care Team Providers Name Role Phone Jocelyn Davidson RENATA Unavailable Nikita Gamble Primary Care Provider Naveen Casiano MD Unavailable Encounter Details Date Type Department Care Team Description 12/02/2020 Travel Social History Tobacco Use Types Packs/Day Years Used Date Smoking Tobacco: Never Smokeless Tobacco: Never Alcohol Use Standard Drinks/Week Comments Yes 0 (1 standard drink = 0.6 oz pure alcoho l) rare Sex Assigned at Date Recorded Female 03/04/2020 12:33 PM COMPUTER GRAPHIC ARTIST COVID-19 Exposure Response Date Recorded In the last month, have you been in contact with No / Unsure 12/02/2020 3:27 PM CDT someone who was confirmed or suspected to have Coronavirus / COVID-19? documented as of this encounter Plan of Treatment Upcoming Encounters Date Type Specialty Care Team Description 02/09/2022 Virtual Visit Surgery Mindi Llanes PA-C [address] [place] [address] (Wo rk) documented as of this encounter Visit Diagnoses Not on filedocumented in this encounter Additional Health Concerns Assessment Noted Time PHQ-9 Depression Total Score: 0 02/26/2020 1:30 PM COMPUTER GRAPHIC ARTIST documented as of this encounter Care Teams Special Equipment Technician Relationship Specialty Start Date End Date Nikita Gamble PCP - General Family Medicine 05/26/20 [facility] [address] [place] [address] Warper Creeler Dietitian, Registered 05/25/[address] [place] [address] Naveen Casiano MD Assigned PCP 11/16/20 [address] [place] [address] documented as of this encounter
--- OUTSIDE RECORDS SUMMARY | 2022-01-11 20:18 | XMS_ITS | Encounter Summary ---
:1965 Author Organization [place] Address [address] [facility] [place] [address] Care Team Providers Name Role Phone Jocelyn Davidson RENATA Unavailable Nikita Gamble Primary Care Provider Naveen Casiano MD Unavailable Harlan Lin MD Unavailable Unavailable Encounter Details Date Type Department Care Team Description 01/01/2021 Orders Only [facility] Naveen Casiano, Post-tr aumatic Clinic [place] osteoarthritis of left [address] [place] [address] knee (Primary Dx) [place] [address] [id number] Social History Tobacco Use Types Packs/Day Years Used Date Smoking Tobacco: Never Smokeless Tobacco: Never Alcohol Use Standard Drinks/Week Comments Yes 0 (1 standard drink = 0.6 oz pure alcoho l) rare Sex Assigned at Date Recorded 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 documented as of this encounter Plan of Treatment Upcoming Encounters Date Type Specialty Care Team Description 02/09/2022 Virtual Visit Surgery Mind[facility] Llanes [facility]C [facility] [facility] [address] [place] [address] (Wo rk) documented as of this encounter Results Asymptomatic COVID-19 Virus (Coronavirus) [...] the Xpert Xpress SARS-CoV-2 Assay on the [employer]. A dditional information about this [...] COVID-19. This test was validated by the [facility] Infectious Diseases Diagnostic Laboratory. This lab oratory is certified under the Clinical Laboratory Improvement Amen dments of 1987 (CLIA-88) as qualified to perform high complexity lab oratory testing. Naveen Casiano MD LAB - MICRO GENERAL ORDERABL ES Performing Organization Address City/State/ZIP Code Phon e Number [facility] [place] [address] Diag. Lab [address] [facility], Room [address]297 [facility] Infectious [place], [place] [phone] Diseases Diagnostic [phone], [facility] Lab (IDDL) [address] [facility], Room D297 documented in this encounter Visit Diagnoses Diagnosis Post-traumatic osteoarthritis of left kn ee - Primary Secondary localized osteoarthrosis, lowe r leg documented in this encounter Additional Health Concerns Assessment Noted Time PHQ-9 Depression Total Score: 0 02/26/2020 1:30 PM HEADLIGHT ASSEMBLER documented as of this encounter Care Teams Shove Up Relationship Specialty Start Date End Date Nikita Gamble PCP - General Family Medicine 05/26/20 [facility] [address] [place] [address] Senior Sql Server Database Developer Dietitian, Registered 05/25/18 [facility] [place] [address] Naveen Casiano MD Assigned PCP 11/16/20 [address] [place] [address] Harlan Lin Assigned Endocrinology 12/07/20 08/01/21 MD [place] Provider NO INFO AVAILABLE documented as of this encounter
--- OUTSIDE RECORDS SUMMARY | 2022-01-11 20:19 | XMS_ITS | Encounter Summary ---
:1965 Author Organization [place] Address [address] [place] [address]. 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 documented as of this encounter Plan of Treatment Upcoming Encounters Date Type Specialty Care Team Description 02/09/2022 Virtual Visit Surgery Mindi Llanes PA-C [facility] [facility] [address] [place] [address] (Wo rk) documented as of this encounter Visit Diagnoses Not on filedocumented in this encounter Care Teams Supervisor Pigment Making Relationship Specialty Start Date End Date Goran Lloyd PCP - General Family Practice 12/29/17 05/21/20 [facility] [address] [place] [address] Annette Alvarez, Nurse Practitioner Clinical Nurse 03/22/17 10/21/20 STAGE BUILDER MOTOR ASSEMBLY SUPERVISOR Specialist [address] [place] [place] [place] [address] Electrical Prospecting Engineer Dietitian, Registered 05/25/18 [facility] [place] [address] [place] [address] documented as of this encounter
--- OUTSIDE RECORDS SUMMARY | 2022-01-11 20:19 | XMS_ITS | Encounter Summary ---
:1965 Author Organization [place] Address [address] [place] [address]. 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 documented as of this encounter Plan of Treatment Upcoming Encounters Date Type Specialty Care Team Description 02/09/2022 Virtual Visit Surgery Mindi Llanes PA-C [address] [facility] [address] [place] [address] (Wo rk) documented as of this encounter Visit Diagnoses Not on filedocumented in this encounter Care Teams Investigative Shopper Relationship Specialty Start Date End Date Goran Lloyd PCP - General Family Practice 12/29/17 05/21/20 [facility] [address] [place] [address] Annette Alvarez, Nurse Practitioner Clinical Nurse 03/22/17 10/21/20 THERMOPLASTIC TECHNICIAN BIT SHARPENER Specialist [address] [place] [place] [address] Geothermal Plant Manager Dietitian, Registered 05/25/18 [facility] [place] [address] [address] documented as of this encounter
--- OUTSIDE RECORDS SUMMARY | 2022-01-11 20:19 | XMS_ITS | Encounter Summary ---
:1965 Author Organization [place] Address [address] [facility] [place] [address] Care Team Providers Name Role Phone Annette Alvarez APRN SWIMMER Unavailable Goran Lloyd Primary Care Provider Jocelyn Davidson RD Unavailable Reason for Visit Reason Onset Date Comments Patient/info Update 08/01/2018 new pump Encounter Details Date Type Department Care Team Description 08/01/2018 Telephone [facility] Jocelyn Davidson, RENATA Patient/info Update [facility] (new pump) [address] [place] [id number] [phone] Social History Tobacco Use Types Packs/Day Years Used Date Smoking Tobacco: Never Smokeless Tobacco: Never Alcohol Use Standard Drinks/Week Comments Yes 0 (1 standard drink = 0.6 oz pure alcoho l) rare Sex Assigned at Date Recorded 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 Pump set up appointment scheduled for 08/02/18 at 1:30pm. Patient instructed to bring all supplies. Jaqui Logan MS, RD, LD, CDE Telephone Encounter - Ilda Smith - 08/01/2018 12:53 PM CDT Patient calling requesting an appointment tomorrow as she received her new pump in the mail and needs her settings. Please advise Ilda Smith Fish Bin Tender documented in this encounter Plan of Treatment Upcoming Encounters Date Type Specialty Care Team Description 02/09/2022 Virtual Visit Surgery Mindi Llanes PA-C [address] [facility] [address] [place] [address] (Wo rk) documented as of this encounter Visit Diagnoses Not on filedocumented in this encounter Care Teams Dye Feeder Relationship Specialty Start Date End Date Goran Lloyd PCP - General Family Practice 12/29/17 05/21/[address] [address] Annette Alvarez, Nurse Practitioner Clinical Nurse 03/22/17 10/21/20 CARPET REPAIRER SWIMMER Specialist [address] [place], [place] [phone] Jocelyn Davidson RD Possum Trapper Dietitian, Registered 05/25/18 [facility] [address] [place] [address] documented as of this encounter
--- OUTSIDE RECORDS SUMMARY | 2022-01-11 20:19 | XMS_ITS | Encounter Summary ---
:1965 Author Organization [place] Address [address] [facility] [place] [address] Care Team Providers Name Role Phone Annette Alvarez APRN RAG SORTER Unavailable [phone] Goran Lloyd Primary Care Provider Jocelyn Davidson RD Unavailable Reason for Visit Reason Onset Date Comments Medication Refill 12/16/2018 NOVOLOG VIAL 100 UNI T/ML soln Encounter Details Date Type Department Care Team Description 12/16/2018 Refill [facility] Annette Alvarez, Medication Refill [place] ALVAREZ RAG SORTER (NOVOLOG VIAL 100 [address]/ML soln) [place], [place] [address] [address] [place] [address] [phone] Social History Tobacco Use Types Packs/Day Years Used Date Smoking Tobacco: Never Smokeless Tobacco: Never Alcohol Use Standard Drinks/Week Comments Yes 0 (1 standard drink = 0.6 oz pure alcoho l) rare Sex Assigned at Date Recorded Female 03/04/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 Requested Prescriptions Pending Prescriptions Disp Refills ??? insulin aspart (NOVOLOG VIAL) 100 UNITS/ML vial [Pharmacy Med Name: NovoLOG Subcutaneous Solution 100 UNIT/ML] 40 mL 2 Sig: For insulin pump use. Up to 125 units per day. Last Written Prescription Date: 07/28/18 Last Fill Quantity: 40mL , # refills: 3 Last Office Visit: 01/26/18 Alvarez Return in about 3 months (around 04/28/2018). Future Office Visit: Short Acting Insulin Protocol Failed - 12/16/2018 2:11 AM Failed - Blood pressure less than 140/90 in past 6 months BP Readings from Last 3 Encounters: 01/26/18 138/70 12/29/17 130/64 06/17/17 100/60 Failed - LDL on file in past 12 months No lab results found. Failed - HgbA1C in past 3 or 6 months If HgbA1C is 8 or greater, it needs to be on file within the past 3 months. If less than 8, must beon file within the past 6 months. Recent Labs Lab Test 12/09/17 A1C 8.0* Passed - Microalbumin on file in past 12 months Recent Labs Lab Test 12/29/17 1743 MICROL <5 UMALCR Unable to calculate due to low value Passed - Serum creatinine on file in past 12 months Recent Labs Lab Test 01/26/18 1233 CR 1.47* Passed - Medication is active on med list Passed - Patient is age 18 or older Passed - Recent (6 mo) or future (30 days) visit within the authorizing provider's specialty Patient had office visit in the last 6 months or has a visit in the next 30 days with authorizing provider or within the authorizing provider's specialty. See Patient Info tab in inbasket, or Choose Columns in Meds & Orders section of the refill encounter. documented in this encounter Plan of Treatment Upcoming Encounters Date Type Specialty Care Team Description 02/09/2022 Virtual Visit Surgery Mindi Llanes PA-C [address] [place] [address] (Wo rk) documented as of this encounter Visit Diagnoses Diagnosis Type 1 diabetes mellitus with complicati ons (H) Uncontrolled type 1 diabetes mellitus wi th stage 3 chronic kidney disease Type I (juvenile type) diabetes mellitus with renal manifestations, uncontrolled PCOS (polycystic ovarian syndrome) Polycystic ovaries documented in this encounter Care Teams Mortgage Or Loan Underwriter Relationship Specialty Start Date End Date Goran Lloyd PCP - General Family Practice 12/29/17 05/21/[address] [address] Annette Alvarez, Nurse Practitioner Clinical Nurse 03/22/17 10/21/20 BUILDING CODE ADMINISTRATOR RAG SORTER Specialist [address] [place], [place] [id number] Jocelyn Davidson RD Manager Transportation Planning Dietitian, Registered 05/25/18 JET SERRANO [facility] [place] [id number] documented as of this encounter
--- OUTSIDE RECORDS SUMMARY | 2022-01-11 20:19 | XMS_ITS | Encounter Summary ---
:1965 Author Organization [place] Address [address] [facility] [address] Care Team Providers Name Role Phone Annette Alvarez APRN, CNP Unavailable [phone] Goran Lloyd Primary Care Provider Jocelyn Davidson RD Unavailable Reason for Visit Reason Onset Date Comments Refill Request 02/11/2019 levothyroxine (SYNTH ROID/LEVOTHROID) 150 MCG tablet Encounter Details Date Type Department Care Team Description 02/11/2019 Refill [facility] Annette Alvarez, Refill Request Maricarmen ALVAREZ CNP (levothyroxine [address] [place] [id number] [place] [address] AV E (SYNTHROID/LEVOTHROID) [place], [place] 150 MCG tablet) [address] [address] [place] [address] [phone] Social History Tobacco Use Types Packs/Day Years Used Date Smoking Tobacco: Never Smokeless Tobacco: Never Alcohol Use Standard Drinks/Week Comments Yes 0 (1 standard drink = 0.6 oz pure alcoho l) rare Sex Assigned at Date Recorded Female 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 Routing refill request to provider for review/approval because: Thyroid Protocol Cmecob76/21 8:05 PM Recent (12 mo) or future (30 days) visit within the authorizing provider's specialty Normal TSH on file in past 12 months Next 5 appointments (look out 90 days) Feb 21, 2019 9:30 AM WEIGH TANK OPERATOR Telephone Visit with Jocelyn Davidson RD [facility] ([facility]) [address] [facility] [address] Apr 05, 2019 6:30 PM WEIGH TANK OPERATOR Return Visit with Annette Alvarez APRN CNP [facility] ([facility]) [address] [facility] [address] H TANK OPERATOR Telephone Encounter - Sloan Vick RN - 02/15/2019 8:05 PM CST FNA spoke to patient re: levothyroxine refill. FNA advised of note by Annette Alvarez NP. Patient says her TSH was done at the [facility]. Patient has an appointment on 04/05/19 with Annette. Patient would like refills to be sent to [facility] in [place]. Patient is asking for a 90 day refill if possible. Sloan Vick RN/[facility] H TANK OPERATOR Telephone Encounter - Annette Alvarez APRN CNP - 02/15/2019 4:21 AM WEIGH TANK OPERATOR Please call and have patient schedule a follow up visit - not seen for 1 year. Route back to me for refills to last until her scheduled follow up . Annette Alvarez NP Endocrinology H TANK OPERATOR Telephone Encounter - Pam Tavera RN - 02/12/2019 4:32 PM CST Failed protocol H TANK OPERATOR Telephone Encounter - Micah Sawant - 02/11/2019 4:54 PM CST Requested Prescriptions Pending Prescriptions Disp Refills ??? levothyroxine (SYNTHROID/LEVOTHROID) 150 MCG tablet Last Written Prescription Date: 10/17/2018 Last Fill Quantity: 90 tablet, # refills: 0 Last Office Visit: No previous visit found Future Office Visit: Next 5 appointments (look out 90 days) Apr 05, 2019 6:30 PM WEIGH TANK OPERATOR Return Visit with Annette Alvarez APRN CNP [facility] ([facility]) [address] [facility] [address] 90 tablet 0 Sig: Take 1 tablet (150 mcg) by mouth daily Thyroid Protocol Failed - 02/11/2019 4:45 PM Failed - Recent (12 mo) or future (30 days) visit within the authorizing provider's specialty Patient has had an office visit with the authorizing provider or a provider within the authorizing providers department within the previous 12 mos or has a future within next 30 days. See Patient Info tab in inbasket, or Choose Columns in Meds & Orders section of the refill encounter. Failed - Normal TSH on file in past 12 months Recent Labs Lab Test 01/26/18 1233 TSH 0.09* Passed - Patient is 12 years or older Passed - Medication is active on med list Passed - No active on record If patient is or has had a positive test, please check TSH. Passed - No positive test in past 12 months If patient is or has had a positive test, please check TSH. 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
--- OUTSIDE RECORDS SUMMARY | 2022-01-11 20:19 | XMS_ITS | Encounter Summary ---
:1965 Author Organization [place] Address [address] [facility] [address] Care Team Providers Name Role Phone Annette Alvarezmamadou ALVAREZ DEGREE CLERK Unavailable Goran Lloyd Primary Care Provider Jocelyn Davidson RD Unavailable Reason for Visit Reason Comments Diabetes Encounter Details Date Type Department Care Team Description 11/22/2019 Office Visit [facility] AlvarezAnnette Type 1 [facility] [place] DEGREE CLERK with complications (H) [address] [facility] [id number] [place] [address] (Primary Dx) [place] [address] [phone] Social History Tobacco Use Types Packs/Day Years Used Date Smoking Tobacco: Never Smokeless Tobacco: Never Alcohol Use Standard Drinks/Week Comments Yes 0 (1 standard drink = 0.6 oz pure alcoho l) rare Sex Assigned at Date Recorded 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 Annette Alvarez NP Endocrinology documented in this encounter Plan of Treatment Upcoming Encounters Date Type Specialty Care Team Description 02/09/2022 Virtual Visit Surgery Mnidi Llanes PA-C [address] [facility] [address] [place] [address] (Wo rk) documented as of this encounter Visit Diagnoses Diagnosis Type 1 diabetes mellitus with complicati ons (H) - Primary documented in this encounter Care Teams Quality Intern Relationship Specialty Start Date End Date Goran Lloyd PCP - General Family Practice 12/29/17 05/21/[address] [address] Annette Alvarez, Nurse Practitioner Clinical Nurse 03/22/17 10/21/20 KIM RODRIGUEZ Specialist [address] [place] [address] Green Chain Off Bearer Dietitian, Registered 05/25/18 [facility] [place] [address] [place] [address] [place] [address] documented as of this encounter
--- OUTSIDE RECORDS SUMMARY | 2022-01-11 20:19 | XMS_ITS | Encounter Summary ---
:1965 Author Organization [place] Address [address] [facility] [place] [address] Care Team Providers Name Role Phone Annette Alvarez KIM CUSTOMER ACCOUNT SPECIALIST Unavailable Goran Lloyd Primary Care Provider Jocelyn Davidson RD Unavailable Tamar Murphy APRN CUSTOMER ACCOUNT SPECIALIST Unavailable Reason for Visit Diagnostic Imaging XR (Routine) - Closed Specialty Diagnoses / Procedures Referred By Contact Refer red To Contact Diagnoses Cough Tamar Murphy APRN CNP Procedures XR Chest 2 Views [address] [place], [place] [address] Referral ID Status Reason Start Date Expiration Date Visits Requ ested Visits Authorized [id number] Closed 02/26/2020 02/25/2021 1 1 Encounter Details Date Type Department Care Team Description 02/26/2020 Ancillary Procedure [facility] Tamar Murphy [place] APRN CUSTOMER ACCOUNT SPECIALIST [address] [facility] [id number] [place] [address] [phone] Social History Tobacco Use Types Packs/Day Years Used Date Smoking Tobacco: Never Smokeless Tobacco: Never Alcohol Use Standard Drinks/Week Comments Yes 0 (1 standard drink = 0.6 oz pure alcoho l) rare Sex Assigned at Date Recorded Female 03/04/2020 12:33 PM FINAL CIGAR AND BOX EXAMINER COVID-19 Exposure Response Date Recorded In the last month, have you been in contact with No / Unsure 02/03/2020 12:21 PM FINAL CIGAR AND BOX EXAMINER someone who was confirmed or suspected to have Coronavirus / COVID-19? documented as of this encounter Plan of Treatment Upcoming Encounters Date Type Specialty Care Team Description 02/09/2022 Virtual Visit Surgery Mindi Llanes, PRETTY [address] [place] [address] (Wo rk) documented as of this encounter Procedures Procedure Name Priority Date/Time Associated Diagnosis Comme nts XR CHEST 2 VIEWS Routine 02/26/2020 2:12 PM Cough Resul ts for this FINAL CIGAR AND BOX EXAMINER procedure are i n the results section. documented in this encounter Results XR Chest 2 Views (02/26/2020 2:12 PM FINAL CIGAR AND BOX EXAMINER) Anatomical Region Laterality Modality Chest Computed Radiography Specimen (Source) Anatomical Location Collection Method / Collectio n Time Received Time / Laterality Volume Impressions 02/26/2020 2:25 PM FINAL CIGAR AND BOX EXAMINER IMPRESSION: PA and lateral views of the chest. Lungs are clear. Heart is normal in size. No effusions are evid ent. No pneumothorax. Degenerative spine changes are noted. Ol d healed lateral right upper rib fractures and mid left rib fractures are again noted. TONIO CRANE MD Narrative 02/26/2020 2:25 PM FINAL CIGAR AND BOX EXAMINER CHEST TWO VIEWS ??02/26/2020 2:12 PM HISTORY: Cough. COMPARISON: Chest x-ray 08/24/2019. Procedure Note Tonio Crane MD - 02/26/2020Form atting of this note might be different from the original. CHEST TWO VIEWS 02/26/2020 2:12 PM HISTORY: Cough. COMPARISON: Chest x-ray 08/24/2019. IMPRESSION: PA and lateral views of the chest. Lungs are clear. Heart is normal in size. No effusions are evid ent. No pneumothorax. Degenerative spine changes are noted. Ol d healed lateral right upper rib fractures and mid left rib fractures are again noted. TONIO CRANE MD Tamar Murphy APRN CUSTOMER ACCOUNT SPECIALIST IMG DIAGNOSTIC IMAGING ORDER DEJUAN documented in this encounter Visit Diagnoses Not on filedocumented in this encounter Additional Health Concerns Infection Onset Date Last Indicated Resolved Time Rule Out COVID-19 02/26/2020 02/26/2020 02/27/2020 4:3 2 PM FINAL CIGAR AND BOX EXAMINER Assessment Noted Time PHQ-9 Depression Total Score: 0 02/26/2020 1:30 PM FINAL CIGAR AND BOX EXAMINER documented as of this encounter Care Teams Eyelet Operator Relationship Specialty Start Date End Date Goran Lloyd PCP - General Family Practice 12/29/17 05/21/[address] [address] Annette Alvarez, Nurse Practitioner Clinical Nurse 03/22/17 10/21/20 HOGSHEAD PRESS OPERATOR CUSTOMER ACCOUNT SPECIALIST Specialist [address] [place], [place] [phone] Jocelyn Davidson RD Local Announcer Dietitian, Registered 05/25/18 [facility] MAGG[address] [place] [address] [place] [address] Tamar Murphy APRN Assigned PCP 02/08/20 1 CUSTOMER ACCOUNT SPECIALIST [address] [place], [place] [id number] documented as of this encounter
--- OUTSIDE RECORDS SUMMARY | 2022-01-11 20:19 | XMS_ITS | Encounter Summary ---
:1965 Author Organization [place] Address [address] [facility] [place] [address] Care Team Providers Name Role Phone Annette Alvarezmamadou ALVAREZ COORDINATOR VOLUNTEER SERVICES Unavailable [phone] Goran Lloyd Primary Care Provider Jocelyn Davidson RD Unavailable Encounter Details Date Type Department Care Team Description 08/16/2019 Hospital Encounter [facility] Goran Lloyd [facility] [address] [place] [address] Uncontrolled type 1 diabetes with renal manifestation (H); [facility] [place] Annette KIM Monroe COORDINATOR VOLUNTEER SERVICES [address] [place], [place] [id number] Abnormal weight gain [address] [place] [address] Social History Tobacco Use Types Packs/Day Years Used Date Smoking Tobacco: Never Smokeless Tobacco: Never Alcohol Use Standard Drinks/Week Comments Yes 0 (1 standard drink = 0.6 oz pure alcoho l) rare Sex Assigned at Date Recorded 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 documented as of this encounter Medications at Time of Discharge Medication Sig Dispensed Refills Start Date End Date aspirin 81 MG tablet Take by mouth daily 0 blood glucose USE TO TEST BLOOD 200 each 3 04/16/2019 (ACCU-CHEK RADHA PLUS) GLUCOSE LEVELS 2TIMES test stripIndications: DAILY OR DIRECTED. 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 miscellaneousIndication s: Type 1 diabetes mellitus with complications (H) Pyridoxine HCl (VITAMIN 0 B6 PO) sennosides (SENOKOT) Take 2 tablets by 0 8.6 MG tablet mouth daily Topiramate (TOPAMAX PO) Take 200 mg by mouth 0 daily acetone urine Use one strip as 100 each 11 04/16/201903/05 (KETOSTIX) test needed to test urine stripIndications: Type for ketones. Do not 1 diabetes mellitus dispense until with complications (H), requested by patient. Uncontrolled type 1 diabetes mellitus with stage 3 chronic kidney disease, PCOS (polycystic ovarian syndrome) BIOTIN PO 0 11/06/2020 blood glucose Use to test blood 408 each 3 02/04/2017 05/0 05/2021 monitoring (ACCU-CHEK sugar 4 times daily or FASTCLIX) as directed. lancetsIndications: Type 1 diabetes mellitus with complications (H), Uncontrolled type 1 diabetes mellitus with stage 3 chronic kidney disease, Flatulence, eructation, and gas pain, PCOS (polycystic ovarian syndrome) blood glucose Use to test blood 200 strip 5 01/27/201708/27 monitoring (NO BRAND sugars 4-8 times daily SPECIFIED) test or as directed. stripIndications: Type Accu-Chek Radha Plus 1 diabetes mellitus with complications (H), Uncontrolled type 1 diabetes mellitus with stage 3 chronic kidney disease glucagon (GLUCAGON INJECT 1 MG BY 2 each 0 04/16/2019 EMERGENCY) 1 MG INTRAMUSCULAR ROUTE kitIndications: Type 1 NEEDED FOR LOW BLOOD diabetes mellitus with SUGAR. Do not dispense complications (H), until requested by Uncontrolled type 1 patient. diabetes mellitus with stage 3 chronic kidney disease, PCOS (polycystic ovarian syndrome), Hypothyroidism due to acquired atrophy of thyroid insulin aspart (NOVOLOG For insulin pump use. 110 mL 3 0 04/16/2019 03/05/2020 VIAL) 100 UNITS/ML Up to 125 units per vialIndications: Type 1 day. diabetes mellitus with complications (H), Uncontrolled type 1 diabetes mellitus with stage 3 chronic kidney disease, PCOS (polycystic ovarian syndrome) insulin degludec For pump failure only. 36 mL 1 019 03/05/2020 (TRESIBA) 200 UNIT/ML Up to 60 units daily. penIndications: Uncontrolled type 1 diabetes mellitus with stage 3 chronic kidney disease, PCOS (polycystic ovarian syndrome) insulin pen needle (B-D Use 4 daily or as 400 each 3 12/3003/05/2020 U/F) 31G X 5 directed. MMIndications: Type 1 diabetes mellitus with complications (H), Uncontrolled type 1 diabetes mellitus with stage 3 chronic kidney disease, PCOS (polycystic ovarian syndrome) levothyroxine Take 1 tablet (175 90 tablet 3 04/18/201901/2021 (SYNTHROID/LEVOTHROID) mcg) by mouth daily 175 MCG tabletIndications: Hypothyroidism due to acquired atrophy of thyroid LISINOPRIL PO Take 10 mg by mouth 0 NIACIN PO 0 11/07/2019 pantoprazole (PROTONIX) Take 20 mg by mouth 0 11/07/2019 20 MG EC tablet daily pregabalin (LYRICA) 75 Take 1 capsule (75 mg) 0 0 11/10/2017 09/22/2021 MG capsuleIndications: by mouth 2 times daily Diabetic polyneuropathy associated with type 1 diabetes mellitus (H) Tolterodine Tartrate Take 2 mg by mouth 0 09/22/2021 (DETROL PO) daily TRAMADOL HCL PO Take 50 mg by mouth 0 12/03/2020 every 6 hours as needed for moderate to severe pain Takes 1-2 tabs every 6 hours documented as of this encounter Miscellaneous Notes Result Encounter Note - Annette Alvarez APRN CNP - 08/16/2019 11:59 PM CDT Marnie, Your cortisol level is stable. Your kidney function test (creatinine) is still elevated but stable. It has fluctuated between 1.4 and 1.6 since at least 2017. Here's a copy of the results for your records. Annette Alvarez NP Endocrinology documented in this encounter Plan of Treatment Upcoming Encounters Date Type Specialty Care Team Description 02/09/2022 Virtual Visit Surgery Mindi Llanes PA-C [address] [place] [id number] (Wo rk) documented as of this encounter Procedures Procedure Name Priority Date/Time Associated Diagnosis Comme nts RENAL PANEL Routine 08/16/2019 5:57 PM Uncontrolled type 1 Re sults for this CDT diabetes with renal procedur e are in manifestation (H) the result s section. CORTISOL Routine 08/16/2019 5:57 PM Abnormal weight gain R esults for this CDT procedure are i n the results section. documented in this encounter Results Cortisol (08/16/2019 5:57 PM CDT) P athologist Signature Cortisol Serum 14.2 4 - 22 08/16/2019 [facility] ug/dL 10:27 PM CDT [facility] Comment: 8 AM Cortisol Reference Range = 4-22 ug/ dL 4 PM Cortisol Reference Range = 3-17 ug/ dL Specimen Anatomical Collection Method Collection Time Receive d Time (Source) Location / / Volume Laterality Blood specimen 08/16/2019 5:57 PM 020 5:58 (specimen) CDT PM CDT Annette Alvarez PROJECT DEVELOPMENT MANAGER COORDINATOR VOLUNTEER SERVICES LAB - BLOOD ORDERABLES Performing Organization Address City/State/ZIP Code Phon e Number [address] [facility] (ABNORMAL) Renal panel (Alb, BUN, Ca, Cl, CO2, Creat, Gluc, Phos, K, Na) (08/16/2019 5:57 PM CDT) Analysis Performed At Patho logist Time Signature Sodium 136 133 - 144 08/16/2019 [facility] mmol/L 6:32 PM [facility] Potassium 4.6 3.4 - 5.3 08/16/2019 [facility] mmol/L 6:32 PM [facility] Chloride 107 94 - 109 08/16/2019 [facility] mmol/L 6:32 PM [facility] Carbon Dioxide 24 20 - 32 08/16/2019 [facility] mmol/L 6:39 PM [facility] Anion Gap 5 3 - 14 08/16/2019 [facility] mmol/L 6:39 PM [facility] Glucose 166 (H) 70 - 99 08/16/2019 [facility] mg/dL 6:39 PM [facility] Urea Nitrogen 21 7 - 30 08/16/2019 [facility] mg/dL 6:39 PM [facility] Creatinine 1.41 (H) 0.52 - 08/16/2019 [facility] 1.04 mg/dL 6:39 PM [facility] GFR Estimate 42 (L) >60 08/16/2019 [facility] mL/min/{1. 6:39 PM [facility] 73_m2} HOSPITAL Comment: Non GFR Calc Starting 03/14/2018, serum creatinine ba sed estimated GFR (eGFR) will be calculated using the Chronic Kidney Dise [facility] Epidemiology Collaboration (CKD-EPI) equation. GFR Estimate If 49 (L) >60 mL/min/{1.73_m2} 08/16/2019 6: 39 PM [facility] Comment: GFR Calc Starting 03/14/2018, serum creatinine ba sed estimated GFR (eGFR) will be calculated using the Chronic Kidney Dise [facility] Epidemiology Collaboration (CKD-EPI) equation. Calcium 9.0 8.5 - 10.1 mg/dL 08/16/2019 6:39 PM CDT [facility] Phosphorus 3.4 2.5 - 4.5 mg/dL 08/16/2019 6:39 PM CDT [facility] Albumin 3.9 3.4 - 5.0 g/dL 08/16/2019 6:39 PM CDT [facility] Specimen Anatomical Collection Method Collection Time Receive d Time (Source) Location / / Volume Laterality Blood specimen 08/16/2019 5:57 PM 020 5:58 (specimen) CDT PM CDT Annette Alvarez PROJECT DEVELOPMENT MANAGER COORDINATOR VOLUNTEER SERVICES LAB - BLOOD ORDERABLES Performing Organization Address City/State/ZIP Code Phon e Number [facility] [address] [place] [address] [facility] [address] [place], [place] [address], [facility] [phone] [facility] [address] [address], [facility] [phone] HOSPITAL documented in this encounter Visit Diagnoses Diagnosis Uncontrolled type 1 diabetes with renal manifestation Type I (juvenile type) diabetes mellitus with renal manifestations, uncontrolled Abnormal weight gain documented in this encounter Care Teams Critical Care Technician Relationship Specialty Start Date End Date Goran Lloyd PCP - General Family Practice 12/29/17 05/21/20 [facility] [address] [place] [address] Annette Alvarez, Nurse Practitioner Clinical Nurse 03/22/17 10/21/20 PROJECT DEVELOPMENT MANAGER COORDINATOR VOLUNTEER SERVICES Specialist [address] [place] [address] Singing Telegram Performer Dietitian, Registered 05/25/18 [facility] [address] [place] [address] [place] [address] documented as of this encounter
--- OUTSIDE RECORDS SUMMARY | 2022-01-11 20:19 | XMS_ITS | Encounter Summary ---
:1965 Author Organization [place] Address [address] [facility] [place] [address] Care Team Providers Name Role Phone Annette Alvarez RAILROAD PASSENGER AGENT VACUUM TECHNICIAN Unavailable [phone] Goran Lloyd Primary Care Provider Jocelyn Davidson RD Unavailable Tamar Murphy RAILROAD PASSENGER AGENT VACUUM TECHNICIAN Unavailable Encounter Details Date Type Department Care Team Description 02/27/2020 Telephone [facility] Kalpesh Lau PA-C [address] [address] [place] [address] [phone] Social History Tobacco Use Types Packs/Day Years Used Date Smoking Tobacco: Never Smokeless Tobacco: Never Alcohol Use Standard Drinks/Week Comments Yes 0 (1 standard drink = 0.6 oz pure alcoho l) rare Sex Assigned at Date Recorded 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 documented as of this encounter Miscellaneous Notes Telephone Encounter - Kalpesh Lau PA-C - 02/27/2020 5:09 PM CST I listened to patient's lungs which sounded quite raspy and congested. Sent in antibiotic to cover for pneumonia and codeine cough syrup. Kalpesh Lau PA-C on 02/27/2020 at 5:09 PM LING PULLER Telephone Encounter - Atiya Cowart - 02/27/2020 3:51 PM CST Patient requesting cough syrup Atiya Cowart/Barge Loader LING PULLER documented in this encounter Plan of Treatment Upcoming Encounters Date Type Specialty Care Team Description 02/09/2022 Virtual Visit Surgery Mindi Llanes PA-C [address] [facility] [address] [place] [phone] (Wo rk) documented as of this encounter Visit Diagnoses Diagnosis Cough - Primary documented in this encounter Additional Health Concerns Infection Onset Date Last Indicated Resolved Time Rule Out COVID-19 02/26/2020 02/26/2020 02/27/2020 4:3 2 PM SEEDLING PULLER Assessment Noted Time PHQ-9 Depression Total Score: 0 02/26/2020 1:30 PM SEEDLING PULLER documented as of this encounter Care Teams Fertilizer Mixer Relationship Specialty Start Date End Date Goran Lloyd PCP - General Family Practice 12/29/17 05/21/20 [facility] MEDICAL [address] [place] [address] Annette Alvarez, Nurse Practitioner Clinical Nurse 03/22/17 10/21/20 RAILROAD PASSENGER AGENT VACUUM TECHNICIAN Specialist [address] [place], [place] [phone] Jocelyn Davidson RD Terminal Gauger Supervisor Dietitian, Registered 05/25/18 [facility] [place] [address] Tamar Murphy APRN Assigned PCP 02/08/20 1 VACUUM TECHNICIAN [address] [place] [address] documented as of this encounter
--- OUTSIDE RECORDS SUMMARY | 2022-01-11 20:19 | XMS_ITS | Encounter Summary ---
:1965 Author Organization [place] Address [address] [place] [address]. [place] [address] Care Team Providers Name Role Phone Annette Alvarez APRN HAND LACER Unavailable [phone] Goran Lloyd Primary Care Provider Jocelyn Davidson RD Unavailable Reason for Referral Diagnostic Imaging XR (Routine) - Closed Specialty Diagnoses / Procedures Referred By Contact Refer red To Contact Radiology. Diagnoses Positive QuantiFERON-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 Mj Tenorio MD Rh Xray Procedures XR Chest 1 View, [place] [address] [facility] [place] [address] [address] [place] [address] Phone: Fax: Referral ID Status Reason Start Date Expiration Date Visits Requ ested Visits Authorized [id number] Closed 08/24/2019 08/23/2020 1 1 Reason for Visit Diagnostic Imaging XR (Routine) - Closed Specialty Diagnoses / Procedures Referred By Contact Refer red To Contact Radiology. Diagnoses Positive QuantiFERON-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 Mj Tenorio MD Rh Xray Procedures XR Chest 1 View, [place] [address] [place] [place] [address] [address] [place] [address] Phone: Fax: Referral ID Status Reason Start Date Expiration Date Visits Requ ested Visits Authorized [id number] Closed 08/24/2019 08/23/2020 1 1 Encounter Details Date Type Department Care Team Description 08/24/2019 Hospital Encounter [facility] Mj Tenorio Positive [facility] MD Olegario QuantiFERON-TB Gold [address] [facility] [address] test 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 stripIndications: Type Accu-Chek Shantel [...] PA-C [address] [place] [address] (Wo rk) documented as of this encounter Procedures Procedure Name Priority Date/Time Associated Diagnosis Comme nts XR CHEST 1 VIEW, Routine 08/24/2019 3:48 PM Positive Resul ts for this [employer]OYEE [employer] CDT QuantiFERON-TB Gold proce dure are in test the results section. documented in this encounter Results XR Chest 1 View, Employee Health (08/24/2019 3:48 PM CDT) Anatomical Region Laterality Modality Chest Digital Radiography Specimen (Source) Anatomical Location Collection Method / Collectio n Time Received Time / Laterality Volume Impressions 08/24/2019 4:19 PM CDT IMPRESSION: No acute disease. ALONZO MONET MD Narrative 08/24/2019 4:19 PM CDT CHEST PA VIEW 08/24/2019 3:48 PM HISTORY: Positive QuantiFERON-TB Gold te st COMPARISON: None. FINDINGS: No radiographic evidence of ac tive tuberculosis. There are no acute infiltrates. The cardiac silhou ette is not enlarged. Pulmonary vasculature is unremarkable. Procedure Note Alonzo Monet MD - 08/24/2019Fo rmatting of this note might be different from the original. CHEST PA VIEW 08/24/2019 3:48 PM HISTORY: Positive QuantiFERON-TB Gold te st COMPARISON: None. FINDINGS: No radiographic evidence of ac tive tuberculosis. There are no acute infiltrates. The cardiac silhou ette is not enlarged. Pulmonary vasculature is unremarkable. IMPRESSION: No acute disease. ALONZO MONET MD Mj Tenorio MD IMG DIAGNOSTIC IMAGING ORDER DEJUAN documented in this encounter Visit Diagnoses Diagnosis Positive QuantiFERON-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 Nonspecific reaction to cell mediated im munity measurement of gamma interferon antigen response without active tubercul osis documented in this encounter Care Teams Deposit Refund Clerk Relationship Specialty Start Date End Date Goran Lloyd PCP - General Family Practice 12/29/17 05/21/20 [facility] [address] [place] [address] Annette Alvarez, Nurse Practitioner Clinical Nurse 03/22/17 10/21/20 DIAL REFINISHER HAND LACER Specialist [address] [place] [address] Policy Manager Dietitian, Registered 05/25/18 [facility] [address] [place] [address] [place] [id number] documented as of this encounter
--- OUTSIDE RECORDS SUMMARY | 2022-01-11 20:19 | XMS_ITS | Encounter Summary ---
:1965 Author Organization [place] Address [address] [facility] [place] [address] Care Team Providers Name Role Phone Annette Alvarez APRN DESK PEN SET ASSEMBLER Unavailable Goran Lloyd Primary Care Provider Deidre Kirkland RD Unavailable Reason for Visit Reason Onset Date Comments Diabetes Education 09/01/2018 Encounter Details Date Type Department Care Team Description 09/01/2018 Telephone [facility] Deidre Kirkland RD Diabetes Education [facility] - [address] [phone] Social History Tobacco Use Types Packs/Day Years Used Date Smoking Tobacco: Never Smokeless Tobacco: Never Alcohol Use Standard Drinks/Week Comments Yes 0 (1 standard drink = 0.6 oz pure alcoho l) rare Sex Assigned at Date Recorded 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 Call out to pt who reported high blood sugars last night/this morning after changing her infusion set. See Dexcom readings per below. After unable to reduce BG (and mod ketones) with correction boluses- took insulin with her last Humalog pen 30 units x2. BG then came down to 182 mg/dl. Reviewed importance of changing infusion set if significant hyperglycemia with ketones, and inability to correct with insulin pump. Reinforced back up plan, needs to have syringes on hand. Pt agreed. Sending rx for insulin syringes to [facility] pharmacy. Pt planning to upload her pump in next 1-2 weeks as requested by CDE. Deidre Kirkland RD, CDE Diabetes Combination Welder Telephone Encounter - Deidre Kirkland RD - 09/01/2018 1:44 PM CDT Noted a missed call from patient (per caller ID). Attempted to call patient back- no answer- left message encouraging her to send a [employer] message. Otherwise, will attempt to reach once more before end of day. Deidre Kirkland RD, CDE Diabetes Combination Welder Addendum Note - Deidre Kirkland RD - 09/01/2018 1:44 PM CDT Addended by: DEIDRE KIRKLAND on: 09/01/2018 04:05 PM Modules accepted: Orders documented in this encounter Plan of Treatment Upcoming Encounters Date Type Specialty Care Team Description 02/09/2022 Virtual Visit Surgery Mindi Llanes PA-C [address] [facility] [address] [place] [address] (Wo rk) documented as of this encounter Visit Diagnoses Diagnosis Type 1 diabetes mellitus with complicati ons (H) - Primary documented in this encounter Care Teams Telephone Sex Worker Relationship Specialty Start Date End Date Goran Lloyd PCP - General Family Practice 12/29/17 05/21/20 [facility] [address] [place] [address] Annette Alvarez, Nurse Practitioner Clinical Nurse 03/22/17 10/21/20 COMPANY MANAGER DESK PEN SET ASSEMBLER Specialist [address] [place] [place] [address] Tectonophysicist Dietitian, Registered 05/25/18 [facility] [place] [address] [place] [address] documented as of this encounter
--- OUTSIDE RECORDS SUMMARY | 2022-01-11 20:19 | XMS_ITS | Encounter Summary ---
:1965 Author Organization [place] Address [address] [address]. 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 documented as of this encounter Plan of Treatment Upcoming Encounters Date Type Specialty Care Team Description 02/09/2022 Virtual Visit Surgery Mindi Llanes PA-C [address] [place] [id number] (Wo rk) documented as of this encounter Visit Diagnoses Not on filedocumented in this encounter Care Teams Porcelain Enamel Sprayer Relationship Specialty Start Date End Date Goran Lloyd PCP - General Family Practice 12/29/17 05/21/[address] [place] [address] Annette Alvarez, Nurse Practitioner Clinical Nurse 03/22/17 10/21/20 SHOP FOREMAN ESTIMATE CLERK Specialist [address] [place] [address] Hand Frame Surgical Elastic Knitter Dietitian, Registered 05/25/18 [facility] [place] [phone] documented as of this encounter
--- OUTSIDE RECORDS SUMMARY | 2022-01-11 20:19 | XMS_ITS | Encounter Summary ---
:1965 Author Organization [place] Address [address] [facility] [place] [address] Care Team Providers Name Role Phone Annette Alvarez APRN NET UI DEVELOPER Unavailable [phone] Goran Lloyd Primary Care Provider Jocelyn Davidson RD Unavailable Reason for Visit Reason Comments Diabetes Education Encounter Details Date Type Department Care Team Description 08/02/2018 [facility] Jocelyn Davidson, Diabet es Education Health/Nurse [place] [address] Visit [address] [place] [address] [place] [phone] [place] [address] Social History Tobacco Use Types Packs/Day Years Used Date Smoking Tobacco: Never Smokeless Tobacco: Never Alcohol Use Standard Drinks/Week Comments Yes 0 (1 standard drink = 0.6 oz pure alcoho l) rare Sex Assigned at Date Recorded 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 Diabetes Self-Management Education & Support SUBJECTIVE/OBJECTIVE Diabetes education in the past 24mo: (P) Yes Diabetes type: (P) Type 1 Disease course: (P) Getting harder to manage Cultural Influences/Ethnic Background: [place] Pt seen today to set up T:Slim pump replacement. Pt called earlier this week regarding pump failure.New pump was shipped and arrived yesterday. Pt seeking assistance with putting in settings, and alsoreports problems with infusion set changes tubing does not fill as expected. Insulin Pump Information Insulin Pump Type: Tandem t:slim X2 Infusion Set: Tandem Tandem Infusion Set: Auto Soft 90 Insulin Pump Review Insulin Pump Type: Tandem t:slim X2 Taking other diabetes medications?: No Patient has glucagon emergency kit: Yes Patient understands DKA prevention: Yes Patient has ketone test strips: Yes Patient has an insulin multiple daily injection back-up plan: Yes Patient would benefit from: Changing infusion set as directed Education specific to insulin pump provided today: (S) (Trouble shooting with infusion set changes, tubing fills, etc) Healthy Eating Cultural/mosque diet restrictions?: (P) No Meal planning: (P) Avoiding sweets, Calorie counting, Carbohydrate counting, Heart healthy, Smaller portions Meals include: (P) Breakfast, Dinner, Snacks Beverages: (P) Tea, Diet soda, Other Has patient met with a dietitian in the past?: (P) No Being Active Barrier to exercise: (P) Physical limitation Monitoring Blood Glucose Meter: (P) Accu-check, Other Home Glucose (Sugar) Monitoring: (P) 3-4 times per day Blood glucose trend: (P) Decreasing steadily Low Glucose Range (mg/dL): (P) 140-180 High Glucose Range (mg/dL): (P) >200 Taking Medications Diabetes Medication(s) Biguanides metFORMIN (GLUCOPHAGE-XR) 500 MG 24 hr tablet Take 2 tablets (1,000 mg) by mouth daily (with dinner) Diabetic Other glucagon (GLUCAGON EMERGENCY) 1 MG kit INJECT 1 MG BY INTRAMUSCULAR ROUTE NEEDED FOR LOW BLOOD SUGAR. Insulin insulin aspart (NOVOLOG FLEXPEN) 100 UNIT/ML pen For pump failure only: 1 unit per 10 gms of carbs + correction 1:20 above 140 mg/dl. insulin aspart (NOVOLOG VIAL) 100 UNITS/ML vial For insulin pump use. Up to 125 units per day. insulin degludec (TRESIBA) 200 UNIT/ML pen For pump failure only. Up to 60 units daily. INSULIN PUMP - OUTPATIENT Date last updated: 07/29/18 T:Slim x2 BASAL RATES and times: 12 AM (midnight): 1.5 units/hour CARB RATIO and times: 12 AM (midnight): 5.5 Corection Factor (Sensitivity) and times: 12 AM (midnight): 23 mg/dL BLOOD GLUCOSE TARGET and times: 12 AM (midnight): 120 Active Insulin Time: 4 hours Using T:Connect: Yes Dexcom Sharing Code: [id number] Current Treatments: (P) Diet, Insulin Injections, Insulin Pump Problem Solving Hypoglycemia Frequency: (P) Monthly Hypoglycemia Treatment: (P) Juice, Other food Patient carries a carbohydrate source: (P) Yes Medical alert: (P) Yes Severe weather/disaster plan for diabetes management?: (P) No DKA prevention plan?: (P) Yes Sick day plan for diabetes management?: (P) Yes Hypoglycemia symptoms Confusion: (P) Yes Dizziness or Light-Headedness: (P) Yes Headaches: (P) Yes Hunger: (P) Yes Mood changes: (P) Yes Nervousness/Anxiety: (P) Yes Sleepiness: (P) Yes Speech difficulty: (P) Yes Sweats: (P) Yes Tremors: (P) Yes Hypoglycemia Complications Blackouts: (P) Yes Hospitalization: (P) Yes Nocturnal hypoglycemia: (P) Yes Required assistance: (P) Yes Required glucagon injection: (P) Yes Seizures: (P) Yes Reducing Risks CAD Risks: (P) Diabetes Mellitus, Family history, Hypertension, Obesity, Post- menopausal, Stress, Tobacco exposure Has dilated eye exam at least once a year?: (P) No Sees dentist every 6 months?: (P) Yes Sees bat lathe operator (foot doctor)?: (P) No Healthy Coping Informal Support system:: (P) Family, Spouse Difficulty affording diabetes management supplies?: (P) No Patient Activation Measure Survey Score: No flowsheet data found. ASSESSMENT T:Slim pump set up per most recent settings per Med list above. Also paired Dexcom G6 and turned on Basal IQ. Pt was using only Novolog for 2 days during pump failure, though she had Tresiba on hand. Last Novolog injection ~4 hrs prior to visit. BG during visit dropped down to 71 mg/dl- treated with juice and crackers. Corrected BG >100 mg/dl prior to leaving clinic. Observed pt doing infusion set placement. Noted pt was not extracting air from pump cartridge prior to tubing fills, which was likely causing the issues pt had described stating the tubing doesn't fill as expected. Pt verbalized understanding and will correct process moving forward. INTERVENTION: Diabetes knowledge and skills assessment: Patient is knowledgeable in diabetes management concepts related to: Healthy Eating, Monitoring, Taking Medication and Problem Solving Patient needs further education on the following diabetes management concepts: Taking Medication Based on learning assessment above, most appropriate setting for further diabetes education would be: Individual setting. Education provided today on: AADE Self-Care Behaviors: Taking Medication: action of prescribed medication, recommend basal + bolus insulin injections during pump failure Education specific to pump therapy: review of insulin set change process, preventing hypoglycemia, importance of regular check-ins for pump adjustments Opportunities for ongoing education and support in diabetes-self management were discussed. Pt verbalized understanding of concepts discussed and recommendations provided today. Education Materials Provided: No new materials provided today PLAN Pump upload 1-2 weeks, sooner if questions or concerns. Schedule CDE follow up after upcoming knee replacement. Jocelyn Davidson RD, CDE Diabetes Steam And Power Superintendent Time Spent: 60 minutes Encounter Type: Individual Any diabetes medication dose changes were made via the CDE Protocol and Collaborative Practice Agreement with the patient's endocrinology provider. A copy of this encounter was shared with the provider. documented in this encounter Plan of Treatment Upcoming Encounters Date Type Specialty Care Team Description 02/09/2022 Virtual Visit Surgery Mindi Llanes PA-C [address] [facility] [address] [place] [address] (Wo rk) documented as of this encounter Visit Diagnoses Diagnosis Type 1 diabetes mellitus with complicati ons (H) - Primary documented in this encounter Care Teams Merchandising Professor Relationship Specialty Start Date End Date Goran Lloyd PCP - General Family Practice 12/29/17 05/21/20 [facility] [address] [place] [address] Annette Alvarez, Nurse Practitioner Clinical Nurse 03/22/17 10/21/20 ASSISTANT CORPORATE CONTROLLER NET UI DEVELOPER Specialist [address] [place] [address] Family Member Caretaker Dietitian, Registered 05/25/18 [facility] [address] [place] [id number] documented as of this encounter
--- OUTSIDE RECORDS SUMMARY | 2022-01-11 20:19 | XMS_ITS | Encounter Summary ---
:1965 Author Organization [place] Address [address] [facility] [place] [address] Care Team Providers Name Role Phone Annette Alvarez APRN STOKER MECHANIC Unavailable Goran Lloyd Primary Care Provider Jocelyn Davidson RD Unavailable Reason for Visit Reason Comments Diabetes Education Encounter Details Date Type Department Care Team Description 10/11/2018 [facility] Yadira Garcia Diabe gail Education Health/[place] [address] [facility] [phone] [place], [place] (Work) [address] Social History Tobacco Use Types Packs/Day Years Used Date Smoking Tobacco: Never Smokeless Tobacco: Never Alcohol Use Standard Drinks/Week Comments Yes 0 (1 standard drink = 0.6 oz pure alcoho l) rare Sex Assigned at Date Recorded 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 Diabetes Self-Management Education & Support Diabetes Self-Management Education & Support - Insulin Pump Start SUBJECTIVE/OBJECTIVE Presents for: Individual review Accompanied by: Self Diabetes education in the past 24mo: Yes Diabetes type: Type 1 Disease course: Getting harder to manage Cultural Influences/Ethnic Background: Eritrean Pt seen today to set up T:Slim pump replacement. Patient experienced pump failure and Tandem sent her a replacement pump. She requests assistance with setting up the pump correctly. Insulin Pump Information Insulin Pump Type: Tandem t:slim X2 Infusion Set: Tandem Tandem Infusion Set: Auto Soft 90 Insulin Pump Start Insulin Pump Type: Tandem t:slim X2 Infusion Set: Tandem Tandem Infusion Set: Auto Soft 90 Healthy Eating Healthy Eating Assessed Today: No Cultural/catholic diet restrictions?: No Meal planning: Avoiding sweets, Calorie counting, Carbohydrate counting, Heart healthy, Smaller portions Meals include: Breakfast, Dinner, Snacks Beverages: Tea, Diet soda, Other Has patient met with a dietitian in the past?: No Being Active Being Active Assessed Today: No Barrier to exercise: Physical limitation Monitoring Monitoring Assessed Today: Yes Blood Glucose Meter: Accu-check, CGM Home Glucose (Sugar) Monitorin-4 times per day Taking Medications Diabetes Medication(s) Biguanides metFORMIN (GLUCOPHAGE-XR) [...] Insulin Time: 4 hours Using T:Connect: Yes Muchasa Sharing Code: [id number] Current Treatments: Diet, Insulin Injections, Insulin Pump Problem Solving Problem Solving Assessed Today: Yes Hypoglycemia Frequency: Monthly Hypoglycemia Treatment: Juice, Other food Patient carries a carbohydrate source: Yes Medical alert: Yes Severe weather/disaster plan for diabetes management?: No DKA prevention plan?: Yes Hypoglycemia symptoms Confusion: Yes Dizziness or Light-Headedness: Yes Headaches: Yes Hunger: Yes Mood changes: Yes Nervousness/Anxiety: Yes Sleepiness: Yes Speech difficulty: Yes Sweats: Yes Tremors: Yes Hypoglycemia Complications Blackouts: Yes Hospitalization: Yes Nocturnal hypoglycemia: Yes Required assistance: Yes Required glucagon injection: Yes Seizures: Yes Reducing Risks Reducing Risks Assessed Today: No CAD Risks: Diabetes Mellitus, Family history, Hypertension, Obesity, Post- menopausal, Stress, Tobacco exposure Has dilated eye exam at least once a year?: No Sees dentist every 6 months?: Yes Sees manager core (foot doctor)?: No Healthy Coping Healthy Coping Assessed Today: No Informal Support system:: Family, Spouse Difficulty affording diabetes management supplies?: No Patient Activation Measure Survey Score: No flowsheet data found. ASSESSMENT Replacement pump set up per settings in failed pump and verified with above settings from med list. dexcom transmitter entered, patient plans to pair dexcom with pump when she gets home. She did use her back up plan of Tresiba and novolog injection while waiting for the replacement pump. Last Novolog injection today at 10am of 12 units. Last tresiba injection on 10/10/18 at 7am of 64 units. She admits to entering false carbohydrates to bring high glucose down and at times will set a temp basal at increase rate at 225% to bring high glucose down. Recommend she only enter true carbohydrates into the pump, take corrections as needed, if using the temp basal then max increase at 120%, any additiona dosage needed she needs to call the clinic to discuss elevated glucose. She would benefit from follow up in clinic to review her pump report in detailto make appropriate dose adjustments. INTERVENTION: Diabetes knowledge and skills assessment: Patient is knowledgeable in diabetes management concepts related to: Monitoring, Taking Medication and Problem Solving Patient needs further education on the following diabetes management concepts: insulin pump set up Based on learning assessment above, most appropriate setting for further diabetes education would be: Individual setting. Education provided today on: AADE Self-Care Behaviors: Taking Medication: action of prescribed medication and dosing guidelines Education specific to insulin pump provided today on: how to use a temporary basal rate and how to use the bolus calculator appropriately Opportunities for ongoing education and support in diabetes-self management were discussed. Pt verbalized understanding of concepts discussed and recommendations provided today. Education Materials Provided: No new materials provided today PLAN Use pump as directed, do not enter false carbohydrates ,use correction for high glucose and use tempbasal at no more than 120% when consistently high. Follow up in clinic with Jocelyn Davidson to review pump report and adjustments to pump settings. Yadira Garcia RN,CDE Time Spent: 70 minutes Encounter Type: Individual Any diabetes medication dose changes were made via the CDE Protocol and Collaborative Practice Agreement with the patient's referring provider. A copy of this encounter was shared with the provider. documented in this encounter Plan of Treatment Upcoming Encounters Date Type Specialty Care Team Description 02/09/2022 Virtual Visit Surgery Mindi Llanes PA-C [address] [facility] [address] [place] [id number] (Wo rk) documented as of this encounter Visit Diagnoses Diagnosis Type 1 diabetes mellitus with complicati ons (H) - Primary documented in this encounter Care Teams Sales Product Manager Relationship Specialty Start Date End Date Goran Lloyd PCP - General Family Practice 12/29/17 05/21/20 [facility] [address] [place] [address] Annette Alvarez, Nurse Practitioner Clinical Nurse 03/22/17 10/21/20 PHILANTHROPY OFFICER STOKER MECHANIC Specialist [address] [place], [place] [phone] Jocelyn Davidson, RD Improvement Auditor Dietitian, Registered 05/25/18 [facility] [place] [address] documented as of this encounter
--- OUTSIDE RECORDS SUMMARY | 2022-01-11 20:19 | XMS_ITS | Encounter Summary ---
:1965 Author Organization [place] Address [address] [place] [address]. [place] [address] Care Team Providers Name Role Phone Annette Alvarez APRN GEOTHERMAL OPERATIONS ENGINEER Unavailable [phone] Goran Lloyd Primary Care Provider Jocelyn Davidson RD Unavailable Reason for Visit Reason Comments Medication Refill Encounter Details Date Type Department Care Team Description 03/22/2019 Refill [facility] Annette Alvarez, Medication Refill [place] ALVAREZ GEOTHERMAL OPERATIONS ENGINEER [address] [id number] [address] [place] [address] [phone] Social History Tobacco Use Types Packs/Day Years Used Date Smoking Tobacco: Never Smokeless Tobacco: Never Alcohol Use Standard Drinks/Week Comments Yes 0 (1 standard drink = 0.6 oz pure alcoho l) rare Sex Assigned at Date Recorded 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 insulin aspart (NOVOLOG VIAL) 100 UNITS/ML vial [Pharmacy Med Name: NovoLOG Subcutaneous Solution 100 UNIT/ML] 40 mL 1 Sig: For insulin pump use. Up to 125 units per day. Short Acting Insulin Protocol Failed - 03/22/2019 1:23 PM Failed - Blood pressure less than 140/90 in past 6 months BP Readings from Last 3 Encounters: 01/26/18 138/70 12/29/17 130/64 06/17/17 100/60 Failed - LDL on file in past 12 months No lab results found. Failed - Serum creatinine on file in past 12 months Recent Labs Lab Test 01/26/18 1233 CR 1.47* Failed - HgbA1C in past 3 or [...] calculate due to low value Passed - Medication is active on med [...] & Orders section of the refill encounter. Kate Chau RN Flex UCTION BROACHING MACHINE OPERATOR documented in this encounter Plan of Treatment Upcoming Encounters Date Type Specialty Care Team Description 02/09/2022 Virtual Visit Surgery Mindi Llanes PA-C [address] [facility] [address] [place] [address] (Wo rk) documented as of this encounter Visit Diagnoses Diagnosis Type 1 diabetes mellitus with complicati ons (H) Uncontrolled type 1 diabetes mellitus wi th stage 3 chronic kidney disease Type I (juvenile type) diabetes mellitus with renal manifestations, uncontrolled PCOS (polycystic ovarian syndrome) Polycystic ovaries documented in this encounter Care Teams Wafer Production Lead Worker Relationship Specialty Start Date End Date Ailabouni, Goran PCP - General Family Practice 12/29/17 05/21/[address] [address] Annette Alvarez, Nurse Practitioner Clinical Nurse 03/22/17 10/21/20 DESKTOP SUPPORT CONSULTANT GEOTHERMAL OPERATIONS ENGINEER Specialist [address] [place] [address] China Decorator Dietitian, Registered 05/25/18 [facility] [place] [facility] [place] [address] documented as of this encounter
--- OUTSIDE RECORDS SUMMARY | 2022-01-11 20:19 | XMS_ITS | Encounter Summary ---
:1965 Author Organization [place] Address [address] [place] [address]. 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 encounter Plan of Treatment Upcoming Encounters Date Type Specialty Care Team Description 02/09/2022 Virtual Visit Surgery Mindi Llanes PA-C [address] [facility] [address] [place] [address] (Wo rk) documented as of this encounter Visit Diagnoses Not on filedocumented in this encounter Care Teams Talent Sourcing Specialist Relationship Specialty Start Date End Date Goran Lloyd PCP - General Family Practice 12/29/17 05/21/20 [facility] [address] [place] [address] Annette Alvarez, Nurse Practitioner Clinical Nurse 03/22/17 10/21/20 [facility] [employer] DIRECTOR Specialist [address] [address] [place] [address] Slate Splitter Dietitian, Registered 05/25/18 [facility] [place] [id number] documented as of this encounter
--- OUTSIDE RECORDS SUMMARY | 2022-01-11 20:19 | XMS_ITS | Encounter Summary ---
:1965 Author Organization [place] Address [address] [place] [address]. 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 documented as of this encounter Plan of Treatment Upcoming Encounters Date Type Specialty Care Team Description 02/09/2022 Virtual Visit Surgery Mindi Llanes PA-C [address] [facility] [address] [place] [address] (Wo rk) documented as of this encounter Visit Diagnoses Not on filedocumented in this encounter Care Teams Baby Formula Mixer Relationship Specialty Start Date End Date Goran Lloyd PCP - General Family Practice 12/29/17 05/21/20 [facility] [address] [place] [address] Annette Alvarez, Nurse Practitioner Clinical Nurse 03/22/17 10/21/20 PUTTY TINTER MAKER GATE CUTTER Specialist [address] [place] [address] Chief Clinical Officer Dietitian, Registered 05/25/18 [facility] [place] [id number] documented as of this encounter
--- OUTSIDE RECORDS SUMMARY | 2022-01-11 20:19 | XMS_ITS | Encounter Summary ---
:1965 Author Organization [place] Address [address] [facility] 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 [place] [address] Phone: Referral ID Status Reason Start Date Expiration Date Visits Requ ested Visits Authorized [id number] Closed 11/07/2019 11/06/2020 1 1 Reason for Visit Reason Comments Diabetes Thyroid Disease Encounter Details Date Type Department Care Team Description 11/07/2019 Office Visit 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 documented as of this encounter Last Filed Vital Signs Vital Sign Reading Time Taken Comments Blood Pressure 110/60 11/07/2019 1:30 PM CDT Pulse 71 11/07/2019 1:30 PM CDT Temperature 37.1 ??C (98.7 ??F) 11/07/2019 1:30 PM CDT Respiratory Rate - - Oxygen Saturation 98% 11/07/2019 1:30 PM CDT Inhaled Oxygen Concentration - - Weight 118.3 kg (260 lb 11.2 oz) 11/07/2019 1:30 PM CDT Height - - Body Mass Index 35.85 12/25/2014 9:45 PM CDT documented in this encounter Patient Instructions Patient InstructionsAnnette Alvarez APRN CNP - 11/07/2019 1:30 PM CDT Today's changes: Carbohydrate Ratio - Time Ratio 0000 4.5--> 5.8 Sensitivity 20-->27 Remember if you need less insulin with food or correction, the insulin to carb ratio or correction factor number needs to increase. Component Latest Ref Rng & Units 12/09/2017 04/16/2019 11/07/2019 Hemoglobin A1C 0 - 5.6 % 8.0 (A) 7.4 (H) 7.3 (H) Today's A1c has improved a bit more! Keep up the good work. Annette Alvarez NP Endocrinology documented in this encounter Progress Notes Annette Alvarez APRN CNP - 11/07/2019 1:30 PM CDT Name: Marnie Duvall F/u for Diabetes (Last seen 01/26/2018). HPI: Marnie Duvall is a 54 year old female who presents for the management of type 1 diabetes. 1. Type 1 DM: Originally diagnosed at the age of 88 years old. DKA: No Current Regimen:Metformin was discontinued 01/2018 due to elevated creatinine. 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 Hypertension: Blood Pressure: BP Readings from Last 3 Encounters: 04/16/19 120/68 01/26/18 138/70 12/29/17 130/64 . Blood pressure medications include Lisinopril 10 mg qd. 3. Hyperlipidemia: Takes no medications for lipid control. 4. Hypothyroidism. Currently treated with levothyroxine 175 mcg daily. Prevention: Flu Shot- Pneumovax- recommended Opthalmology-yes annually, last exam 06/2016 . Dental-recommend semiannually ASA-Yes, 81 mg qd Smoking- no PMH/PSH: Past Medical History: Diagnosis Date ??? Diabetes (H) No past surgical history on file. Family Hx: No family history on file. Thyroid disease: no DM2: yes, father Autoimmune: DM1, SLE, RA, Vitiligo Social Hx: Social History Socioeconomic History ??? Marital status: Spouse name: Not on file ??? Number of children: Not on file ??? Years of education: Not on file ??? Highest education level: Not on file Occupational History ??? Not on file Social Needs ??? Financial resource strain: Not on file ??? Food insecurity Worry: Not on file Inability: Not on file ??? Transportation needs Medical: Not on file Non-medical: Not on file Tobacco Use ??? Smoking status: Never Smoker ??? Smokeless tobacco: Never Used Substance and Sexual Activity ??? Alcohol use: Yes Comment: rare ??? Drug use: No ??? Sexual activity: Not on file Lifestyle ??? Physical activity Days per week: Not on file Minutes per session: Not on file ??? Stress: Not on file Relationships ??? Social connections Talks on phone: Not on file Gets together: Not on file Attends mormonism service: Not on file Active member of club or organization: Not on file Attends meetings of clubs or organizations: Not on file Relationship status: Not on file ??? Intimate partner violence Fear of current or ex partner: Not on file Emotionally abused: Not on file Physically abused: Not on file Forced sexual activity: Not on file Other Topics Concern ??? Parent/sibling w/ CABG, ID or angioplasty before 65F 55M? Not Asked Social History Narrative ??? Not on file MEDICATIONS: has a current medication list which includes the following prescription(s): acetone urine, aspirin, biotin, blood glucose, blood glucose monitoring, blood glucose, calcium carb-cholecalciferol, citalopram hydrobromide, glucagon, insulin aspart, insulin degludec, insulin pen needle, insulin pump, insulin syringe-needle u-100, levothyroxine, lisinopril, niacin, pantoprazole, pregabalin, pyridoxine hcl,sennosides, tolterodine tartrate, topiramate, and tramadol hcl. ROS ROS: 10 point ROS of systems including Constitutional, Eyes, Respiratory, Cardiovascular, Gastroenterology, Genitourinary, Integumentary, Muscularskeletal, Psychiatric were all negative except for pertinent positives noted in my HPI. Physical Exam VS: There were no vitals taken for this visit. GENERAL: AXOX3, NAD, well dressed, answering questions appropriately, appears stated age. HEENT: no exophthalmos, no proptosis, no lig lag, no retraction NECK: Supple, no thyromegaly or adenopathy CV: Regular rate LUNGS: Normal respiratory effort EXTREMITIES: NEUROLOGY: CN grossly intact, no tremors MSK: grossly intact LABS: A1c: Component Latest Ref Rng & Units 12/09/2017 04/16/2019 11/07/2019 Hemoglobin A1C 0 - 5.6 % 8.0 (A) 7.4 (H) 7.3 (H) BMP: !COMPREHENSIVE Latest Ref Rng & Units 08/16/2019 SODIUM 133 - 144 mmol/L 136 POTASSIUM 3.4 - 5.3 mmol/L 4.6 CHLORIDE 94 - 109 mmol/L 107 BUN 7 - 30 mg/dL 21 Creatinine 0.52 - 1.04 mg/dL 1.41 (H) Glucose 70 - 99 mg/dL 166 (H) ANION GAP 3 - 14 mmol/L 5 CALCIUM 8.5 - 10.1 mg/dL 9.0 ALBUMIN 3.4 - 5.0 g/dL 3.9 Urine Micro: Component Latest Ref Rng & Units 04/16/2019 Creatinine Urine mg/dL 121 Albumin Urine mg/L mg/L 10 Albumin Urine mg/g Cr 0 - 25 mg/g Cr 7.86 LFTs/Lipids: 06/07/2017 Total cholesterol: 148 mg/dL Triglycerides: 135 mg/dL LDL cholesterol: 57 mg/dL HDL cholesterol: 64 mg/dL TFTs: !THYROID Latest Ref Rng & Units 04/16/2019 TSH 0.40 - 4.00 mU/L 1.18 Blood Glucose Meter reviewed. All pertinent notes, labs, and images personally reviewed by me. A/P Ms.Holly Debbie Duvall is a 54 year old here for the management of: 1. DM1 - Fair control. A1c 7.3%. Pump download reviewed - having significant blood sugar drops after meals. Review of pump settings show she changed her I:C ratio and correction factor to a more aggressive setting when she intended to change it to a less aggressive setting. Change carb ratio and correction factor to less aggressive settings: Carbohydrate Ratio - Time Ratio 0000 4.5--> 5.8 Sensitivity 20-->27 There is some variability among people, most will usually develop symptoms suggestive of hypoglycemia when blood glucose levels are lowered to the mid 60's. The first set of symptoms are called adrenergic. Patients may experience any of the following nervousness, sweating, intense hunger, trembling, weakness, palpitations, and difficulty speaking. When BS fall below 50 the patient is unable to talk and take oral therapy. Would recommend Glucagon emergency kit for the patient and education for familyand friends around the patient. The acute management of hypoglycemia involves the rapid delivery of a source of easily absorbed sugar. Regular soda, juice, lifesavers, table sugar, are good options. 15 grams of glucose is the dose that is given, followed by an assessment of symptoms and a blood glucose check if possible. If after 10minutes there is no improvement, another 10-15 grams should be given. This can be repeated up to three times. The equivalency of 10-15 grams of glucose (approximate servings) are: 3-5 hard candies, 3 teaspoons of sugar, or 1/2 cup of regular soda or juice. 2. Hypertension - Historically ontrolled, continue Lisinopril 10 mg qd. 3. Hyperlipidemia - On statin therapy. Plan to continue. Monitor fastin lipid panel annually. 4. Hypothyroidism. Currently treated with levothyroxine 175 mcg/day. Will obtain TFT's and adjust levo dose if indicated. Labs ordered today: No orders of the defined types were placed in this encounter. Radiology/Consults ordered today: More than 50% of the time spent with??Ms.??[place]??on counseling / coordinating her??care??and discussing the above plan of care. The patient indicates understanding of the above issues and agrees withthe plan set forth. ??Total face to face??time was 25??minutes. Follow-up: 3 months Annette Alvarez NP Endocrinology [facility] CC: documented in this encounter Miscellaneous Notes Result Encounter Note - Annette Alvarez APRN CNP - 11/07/2019 1:30 PM CDT Marnie, Here is your recent test results for your records. Annette Alvarez NP Endocrinology documented in this encounter Plan of Treatment Upcoming Encounters Date Type Specialty Care Team Description 02/09/2022 Virtual Visit Surgery Mindi Llanes PA-C [address] [place] [phone] (Wo rk) Scheduled Referrals Name Type Priority Associated Diagnoses Order S [facility] OPHTHALMOLOGY ADULT Referral Routine Type 1 diabetes melli tus Ordered: 11/07/2019 REFERRAL with complications (H) documented as of this encounter Procedures Procedure Name Priority Date/Time Associated Diagnosis Comme nts HEMOGLOBIN A1C Routine 11/07/2019 1:17 PM Type 1 diabetes Resu lts for this CDT mellitus with procedure are in complications (H) the result s section. documented in this encounter Results (ABNORMAL) Hemoglobin A1c (11/07/2019 1:17 PM CDT) P athologist Signature Hemoglobin A1C 7.3 (H) 0 - 5.6 % 11/07/2019 [place] 1:29 PM CDT [facility] Comment: Normal <5.7% Prediabetes 5.7-6.4% ??Diab etes 6.5% or higher - adopted from ADA consensus guidelines. Specimen Anatomical Collection Method Collection Time Receive d Time (Source) Location / / Volume Laterality Blood specimen 11/07/2019 1:17 PM 020 1:18 (specimen) CDT PM CDT Annette Alvarez EAP COUNSELOR HEALTH UNIT SUPERVISOR LAB - BLOOD ORDERABLES Performing Organization Address City/[facility] Phon e Number [facility] [address] [place] [address] documented in this encounter Visit Diagnoses Diagnosis Type 1 diabetes mellitus with complicati ons (H) - Primary Benign essential hypertension Essential hypertension, benign documented in this encounter Care Teams Caul Puller Relationship Specialty Start Date End Date Goran Lloyd PCP - General Family Practice 12/29/17 05/21/20 [facility] [address] [place] [address] Annette Alvarez, Nurse Practitioner Clinical Nurse 03/22/17 10/21/20 EAP COUNSELOR HEALTH UNIT SUPERVISOR Specialist [address] [place], [place] [id number] Jocelyn Davidson RD Cell Preparer Dietitian, Registered 05/25/18 [facility] [address] [place] [address] [place] [id number] documented as of this encounter
--- OUTSIDE RECORDS SUMMARY | 2022-01-11 20:19 | XMS_ITS | Encounter Summary ---
:1965 Author Organization [place] Address [address] [place] [address]. 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 documented as of this encounter Plan of Treatment Upcoming Encounters Date Type Specialty Care Team Description 02/09/2022 Virtual Visit Surgery Mindi Llanes PA-C [address] [place] [phone] (Wo rk) documented as of this encounter Visit Diagnoses Not on filedocumented in this encounter Care Teams Nurse Research Relationship Specialty Start Date End Date Goran Lloyd PCP - General Family Practice 12/29/17 05/21/[address] [address] Annette Alvarez, Nurse Practitioner Clinical Nurse 03/22/17 10/21/20 GENERAL CLAIMS AGENT CYBER INSTRUCTOR Specialist [address] [place] [address] Rawhide Trimmer Dietitian, Registered 05/25/18 [facility] [place] [address] documented as of this encounter
--- OUTSIDE RECORDS SUMMARY | 2022-01-11 20:19 | XMS_ITS | Encounter Summary ---
:1965 Author Organization [place] Address [address] [facility] [place] [address] Care Team Providers Name Role Phone Annette Alvarez KIM GENERATOR ASSEMBLER Unavailable [phone] Goran Lloyd Primary Care Provider Jocelyn Davidson RD Unavailable Reason for Visit Reason Onset Date Comments Diabetes Education 07/31/2018 appointment- pump fa ilure Encounter Details Date Type Department Care Team Description 07/31/2018 Telephone [facility] Jocelyn Davidson RD Diabetes Education Clinic [facility] (appointment- pump [address] failure) [place] [address] [address] [place] [address] Social History Tobacco Use Types Packs/Day Years Used Date Smoking Tobacco: Never Smokeless Tobacco: Never Alcohol Use Standard Drinks/Week Comments Yes 0 (1 standard drink = 0.6 oz pure alcoho l) rare Sex Assigned at Date Recorded 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 Pt contacted [employer]- new pump isgetting shipped. Pt asking about pump alarms, states I can't turn the pump off- it's locked up. CDE spoke to Ritu Delarosa who will contact Marnie. Call out to patient this afternoon to follow up. Left message- pt may need appt on Tue to set up replacement pump. Let pt know that quality analyst/technical writer could see her at 9:30 or 1:30 on Tue, 08/02. Pt to call [phone] to confirm if one of those times will work for her. Jocelyn Davidson RD, CDE Diabetes Rip Machine Operator documented in this encounter Plan of Treatment Upcoming Encounters Date Type Specialty Care Team Description 02/09/2022 Virtual Visit Surgery Mindi Llanes PA-C [address] [place] [id number] (Wo rk) documented as of this encounter Visit Diagnoses Not on filedocumented in this encounter Care Teams Tube Rebuilder Relationship Specialty Start Date End Date Goran Lloyd PCP - General Family Practice 12/29/17 05/21/20 [facility] [address] [place] [address] Annette Alvarez, Nurse Practitioner Clinical Nurse 03/22/17 10/21/20 CREDIT REVIEW MANAGER GENERATOR ASSEMBLER Specialist [address] [place] [address] Dx Board Operator Dietitian, Registered 05/25/18 [facility] [place] [address] [place] [address] documented as of this encounter
--- OUTSIDE RECORDS SUMMARY | 2022-01-11 20:19 | XMS_ITS | Encounter Summary ---
:1965 Author Organization [place] Address [facility] [place] [address] Care Team Providers Name Role Phone Annette Alvarez APRN CHURN TENDER Unavailable Goran Lloyd Primary Care Provider Jocelyn Davidson Unavailable Reason for Visit Reason Onset Date Comments Forms 11/08/2019 FMLA forms Encounter Details Date Type Department Care Team Description 11/08/2019 Telephone [facility] Annette Alvarez, Forms (FMLA forms) [address] [address] [phone] (Wo rk) Social History Tobacco Use Types Packs/Day Years Used Date Smoking Tobacco: Never Smokeless Tobacco: Never Alcohol Use Standard Drinks/Week Comments Yes 0 (1 standard drink = 0.6 oz pure alcoho l) rare Sex Assigned at Date Recorded 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 I am not allowed to sign forms for the spouse of a patient. This would have to be completed by the spouse's health care provider according to our clinical molecular geneticist. Patient informed. Annette Alvarez NP Endocrinology Telephone Encounter - Mimi Cyr CMA - 11/08/2019 12:56 PM CDT Patient dropped off FMLA forms regarding her diabetes. Please complete and notify patient when ready. Forms on providers desk. Mimi Cyr CMA on 11/08/2019 at 1:11 PM documented in this encounter Plan of Treatment Upcoming Encounters Date Type Specialty Care Team Description 02/09/2022 Virtual Visit Surgery Mindi Llanes PA-C [address] [facility] [address] [place] [phone] (Wo rk) documented as of this encounter Visit Diagnoses Not on filedocumented in this encounter Care Teams Inspector Scales Relationship Specialty Start Date End Date Goran Lloyd PCP - General Family Practice 12/29/17 05/21/20 [facility] [address] [place] [address] Annette Alvarez, Nurse Practitioner Clinical Nurse 03/22/17 10/21/20 KIM CHURN TENDER Specialist [address] [place], [place] [id number] Jocelyn Davidson RD Game Programer Dietitian, Registered 05/25/18 [facility] [place] [address] [address] documented as of this encounter
--- OUTSIDE RECORDS SUMMARY | 2022-01-11 20:19 | XMS_ITS | Encounter Summary ---
:1965 Author Organization [place] Address [address] [facility] [place] [address] Care Team Providers Name Role Phone Annette Alvarez APRN ROBOT TECHNICIAN Unavailable [phone] Goran Lloyd Primary Care Provider Jocelyn Davidson RD Unavailable Reason for Visit Reason Onset Date Comments Diabetes 02/19/2019 High Blood Sugars Encounter Details Date Type Department Care Team Description 02/19/2019 Telephone [facility] Jocelyn Davidson RD Diabetes (High Blood Clinic [facility] Sugars) [address] [place] [id number] [phone] Social History Tobacco Use Types Packs/Day Years Used Date Smoking Tobacco: Never Smokeless Tobacco: Never Alcohol Use Standard Drinks/Week Comments Yes 0 (1 standard drink = 0.6 oz pure alcoho l) rare Sex Assigned at Date Recorded 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 Jocelyn Davidson RD, CDE Diabetes Housing Director D LEAD Telephone Encounter - Jaqui Logan RD - 02/19/2019 9:12 AM CST CDE outreach call: Called patient she reports she has already changed her sensor, changed her pump site and infusion set. Has checked finger sticks on a meter. She has been taking high amounts of insulin, put her pump xin temp basal of 250% for 2.5 hours, has been entering fake carbohydrates, and took 30 units of additional insulin outside of the pump. The lowest she can get her BG down to is 400. Additionally she reports she just started a new job and was concerned about looking bad by needing to go in, she was out of work for the past 3 weeks and has jury duty this week. She states her coworker has encouraged her to think about her health first, but she is worried about her job. Told patient that she has tried all recommended options and given her history of pump failure it is recommended that she goes to the ER at this time. Stated her health is more important and she has been on the edge of DKA for a while and she likely needs IV fluids and professional help. Patient stated she would go in and requested Jocelyn Davidson call her Tuesday. Jaqui Logan MS, RD, LD, CDE D LEAD Telephone Encounter - Goran Mad[place] - 02/19/2019 8:46 AM CST Patient having very high numbers that are not registering on meter. As well as multiple Ketones. Hasbeen going on since Tuesday. Please call to discuss. D LEAD documented in this encounter Plan of Treatment Upcoming Encounters Date Type Specialty Care Team Description 02/09/2022 Virtual Visit Surgery Mindi Llanes PA-C [address] [place] [phone] (Wo rk) documented as of this encounter Visit Diagnoses Not on filedocumented in this encounter Care Teams Hris Analyst Relationship Specialty Start Date End Date Goran Lloyd PCP - General Family Practice 12/29/17 05/21/[address] [address] Annette Alvarez, Nurse Practitioner Clinical Nurse 03/22/17 10/21/20 ASSOCIATE DIRECTOR OF BIOSTATISTICS ROBOT TECHNICIAN Specialist [address] [place] [address] Balloon Tester Dietitian, Registered 05/25/18 JET [place] [facility] [place] [id number] documented as of this encounter
--- OUTSIDE RECORDS SUMMARY | 2022-01-11 20:19 | XMS_ITS | Encounter Summary ---
:1965 Author Organization [facility] Address [address] [facility] [place] [address] Care Team Providers Name Role Phone Annette Alvarez APRN CIVIL PREPAREDNESS COORDINATOR Unavailable Goran Lloyd Primary Care Provider Jocelyn Davidson RD Unavailable Reason for Visit Reason Comments Diabetes Education Encounter Details Date Type Department Care Team Description 07/28/2018 [facility] Jocelyn Davidson, Diabet es Education Health/Nurse Clinic [address] Visit [id number] [facility] [place] [address] [place] [phone] [place] [address] Social History Tobacco Use Types Packs/Day Years Used Date Smoking Tobacco: Never Smokeless Tobacco: Never Alcohol Use Standard Drinks/Week Comments Yes 0 (1 standard drink = 0.6 oz pure alcoho l) rare Sex Assigned at Date Recorded Female 03/04/2020 12:33 PM [facility] documented as of this encounter Patient Instructions Patient InstructionsJocelyn Davidson, RD - 07/28/2018 1:30 PM CDT Care Plan: Pump setting changes made today: Basal rate increased from 1.4 --> 1.5. Correction strengthened from 26 --> 23 Insulin to carb ratio strengthened from 6.5 --> 5.5 Please try to avoid adding fake carbs- we can continue adjusting your settings as we need to. Diabetes Support Resources: T:[employer] Dexcom Clarity Follow up: Call ([phone]), e-mail ( ), or send pMDsoftt message to educator with blood sugar readings in 1 week. Please schedule a follow up sometime soon after your knee surgery. Bring blood glucose meter and logbook with you to all doctor and follow-up appointments. Jocelyn Davidson RD, LD, CDE Diabetes Ambulance Assistant [facility]: For Your Diabetes or Nutrition Education Appointments Call: [phone] For Diabetes or Nutrition Related Questions Call or Email: [phone] If you need a medication refill please contact your pharmacy. Please allow 3 business days for your refills to be completed. documented in this encounter Progress Notes Jocelyn Davidson RD - 07/28/2018 1:30 PM CDT Images from the original note were not included. Diabetes Self-Management Education & Support SUBJECTIVE/OBJECTIVE Presents for: Follow-up Accompanied by: Self Diabetes education in the past 24mo: Yes Focus of Visit: Insulin Pump, CGM Diabetes type: Type 1 Disease course: Improving Diabetes management related comments/concerns: loves the new pump, wants BG control to continue improving Transportation concerns: No Other concerns:: None Cultural Influences/Ethnic Background: [place] Patient seen today for Insulin Pump CGM Review: 1 week follow up Insulin Pump Review Insulin Pump Type: Tandem t:slim X2 Taking other diabetes medications?: No Problems taking diabetes medications regularly?: No Patient has glucagon emergency kit: Yes Patient understands DKA prevention: Yes Patient has ketone test strips: Yes Patient has an insulin multiple daily injection back-up plan: Yes Patient would benefit from: Change in basal rate(s), Change in carbohydrate ratio(s), Change in insulin sensitivity factor(s), Counting carbohydrates accurately, Appropriate bolus calculator use Changes made to pump settings: Correction/sensitivity, Carb ratio, Basal rate Education specific to insulin pump provided today: How to use a temporary basal rate, How to use thebolus calculator appropriately, Importance of counting carbohydrates accurately, Treating hypoglycemia correctly (Rule of 15) Statistics/Data Evaluation: Healthy Eating Healthy Eating Assessed Today: Yes Cultural/jainism diet restrictions?: No Patient on a regular basis: Counts carbohydrates, Skips meals regularly, Has an inconsistent intake of carbohydrates Meal planning: Carbohydrate counting Meals include: Lunch, Dinner, Snacks Beverages: Tea, Diet soda Has patient met with a dietitian in the past?: Yes Being Active Being Active Assessed Today: No Exercise: Unable to exercise Barrier to exercise: Physical limitation Monitoring Monitoring [...] failure only. Up to 60 units daily. Current Treatments: Insulin Pump Given by: Patient Injection/Infusion sites: Abdomen Problems taking diabetes medications regularly?: No Problem Solving Problem Solving Assessed Today: Yes Hypoglycemia Frequency: Weekly Hypoglycemia Treatment: Glucose (tablets or gel), Juice, Candy, Other food Patient carries a carbohydrate source: Yes Medical alert: Yes Severe weather/disaster plan for diabetes management?: Yes DKA prevention plan?: Yes Hypoglycemia symptoms Confusion: Yes Reducing Risks Reducing Risks Assessed Today: No Healthy Coping Healthy Coping Assessed Today: Yes Emotional response to diabetes: Confidence diabetes can be controlled, Concern for health and well-being Informal Support system:: Spouse Stage of change: ACTION (Actively working towards change) Patient Activation Measure Survey Score: No flowsheet data found. ASSESSMENT Pt is very pleased with insulin pump therapy thus far. Had some difficulty changing infusion set- causing high some high BG readings. Reviewed process today- pt also reviewed video and now feels more comfortable with process. Pt admits, also had been putting in fake carbs in order to get more insulin. Advised that entering false information into pump with make if more difficult to assess current pump settings and make appropriate adjustments. Based on conversation, will slightly increase basal rate, I:C, and ISF per ptrequest. Noted several insulin suspension due to Basal IQ. Pt with hx of frequent hypoglycemia, but states my lows aren't so bad anymore. Noted some hypoglycemia which pt correlated to over-estimating carb intake. INTERVENTION: Diabetes knowledge and skills assessment: Patient is knowledgeable in diabetes management concepts related to: Healthy Eating, Monitoring and Taking Medication Patient needs further education on the following diabetes management concepts: Problem Solving Based on learning assessment above, most appropriate setting for further diabetes education would be: Individual setting. Education provided today on: AADE Self-Care Behaviors: Problem Solving: high blood glucose - causes, signs/symptoms, treatment and prevention and low bloodglucose - causes, signs/symptoms, treatment and prevention Opportunities for ongoing education and support in diabetes-self management were discussed. Pt verbalized understanding of concepts discussed and recommendations provided today. Education Materials Provided: Carbohydrate Counting PLAN See Patient Instructions for co-developed, patient-stated behavior change goals. AVS printed and provided to patient today. See Follow-Up section for recommended follow-up. Pump setting changes made today: Basal rate increased from 1.4 --> 1.5. Correction strengthened from 26 --> 23 Insulin to carb ratio strengthened from 6.5 --> 5.5 Please try to avoid entering fake carbs- we can continue adjusting your settings as needed. Upload pump in 1 week. Schedule CDE follow up after upcoming knee surgery. Diabetes Support Resources: T:[employer] Dexcom Clarity Time Spent: 60 minutes Encounter Type: Individual [...] PA-C [id number] [place] [id number] (Wo rk) documented as of this encounter Visit Diagnoses Diagnosis Type 1 diabetes mellitus with complicati ons (H) - Primary documented in this encounter Care Teams Creative Services Producer Relationship Specialty Start Date End Date Goran Lloyd PCP - General Family Practice 12/29/17 05/21/[address] [address] Annette Alvarez, Nurse Practitioner Clinical Nurse 03/22/17 10/21/20 [employer] CIVIL PREPAREDNESS COORDINATOR Specialist [id number] [place], [place] [phone] Jocelyn Davidson RD Application Assistant Dietitian, Registered 05/25/18 [facility] [place] [address] [place] [id number] documented as of this encounter
--- OUTSIDE RECORDS SUMMARY | 2022-01-11 20:19 | XMS_ITS | Encounter Summary ---
:1965 Author Organization [facility] Address [address] [place] [address]. [place] [address] Care Team Providers Name Role Phone Annette Alvarez APRN, CNP Unavailable [phone] Goran Lloyd Primary Care Provider Jocelyn Davidson RD Unavailable Tamar Murphy APRN HOUSEHOLD COORDINATOR Unavailable Reason for Referral Patient Education (Routine) - Closed Specialty Diagnoses / Procedures Referred By Contact Refer red To Contact Diabetes Education Diagnoses Controlled type 1 diabetes mellitus with chronic kidney disease, unspecified CKD stage (H) Annette Alvarez, [facility] [id number] [place] [phone] Referral ID Status Reason Start Date Expiration Date Visits Requ ested Visits Authorized [id number] Closed 03/05/2020 03/05/2021 1 1 S SUPPORT SPECIALIST Reason for Visit Reason Comments Diabetes Encounter Details Date Type Department Care Team Description 03/05/2020 Office Visit [facility] Annette Nuñez Controlled type 1 diabetes mellitus with chronic kidney disease, unspecified CKD stage (H) (Primary Dx); Clinic [place] KIM Monroe CNP 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; [id number] Insulin [place] [id number] [phone] Social History Tobacco Use Types Packs/Day Years Used Date Smoking Tobacco: Never Smokeless Tobacco: Never Alcohol Use Standard Drinks/Week Comments Yes 0 (1 standard drink = 0.6 oz pure alcoho l) rare Sex Assigned at Date Recorded Female 03/04/2020 12:33 PM SALES SUPPORT SPECIALIST COVID-19 Exposure Response Date Recorded In the last month, have you been in contact with No / Unsure 03/05/2020 11:41 AM SALES SUPPORT SPECIALIST someone who was confirmed or suspected to have Coronavirus / COVID-19? documented as of this encounter Last Filed Vital Signs Vital Sign Reading Time Taken Comments Blood Pressure 110/60 03/05/2020 12:40 PM SALES SUPPORT SPECIALIST Pulse 70 03/05/2020 12:40 PM SALES SUPPORT SPECIALIST Temperature 36.9 ??C (98.5 ??F) 03/05/2020 12:40 PM SALES SUPPORT SPECIALIST Respiratory Rate - - Oxygen Saturation 97% 03/05/2020 12:40 PM SALES SUPPORT SPECIALIST Inhaled Oxygen Concentration - - Weight - - Height - - Body Mass Index - - documented in this encounter Progress Notes Annette Alvarez APRN HOUSEHOLD COORDINATOR - 03/05/2020 1:30 PM CST Name: Marnie Duvall F/u for Diabetes (Last seen 11/07/2019). HPI: Marnie Duvall is a 55 year old female who presents for the management of type 1 diabetes. 1. Type 1 DM: Originally diagnosed at the age of 88 years old. DKA: No Current Regimen:Metformin was discontinued 01/2018 due to elevated creatinine. 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 Blood pressure medications include Lisinopril 10 [...] file Gets together: Not on file Attends christian service: Not on file Active member of club or organization: Not on file Attends meetings of clubs or organizations: Not on file Relationship status: Not on file ??? Intimate partner violence Fear of current or ex partner: Not on file Emotionally abused: Not on file Physically abused: Not on file Forced sexual activity: Not on file Other Topics Concern ??? Parent/sibling w/ CABG, PA or angioplasty before 65F 55M? Not Asked Social History Narrative ??? Not on file MEDICATIONS: has a current medication list which includes the following prescription(s): acetone urine, aspirin, benzonatate, biotin, blood glucose, blood glucose monitoring, blood glucose, calcium carb-cholecalciferol, citalopram hydrobromide, glucagon, guaifenesin-codeine, insulin aspart, insulin degludec, insulin pen needle, insulin pump, insulin syringe-needle u-100, levothyroxine, lisinopril, pregabalin, pyridoxine hcl, sennosides, tolterodine tartrate, topiramate, and tramadol hcl. ROS [...] A1c: Component Latest Ref Rng & Units 04/16/2019 11/07/2019 03/05/2020 Hemoglobin A1C 0 - 5.6 % 7.4 (H) 7.3 (H) 6.6 (H) BMP: !COMPREHENSIVE Latest Ref Rng & [...] More than 50% of the time spent with??.??Jadiel??on counseling / coordinating her??care??and discussing the above plan of care. The patient indicates understanding of the above issues and agrees withthe plan set forth. ??Total face to face??time was 25??minutes. Follow-up: 3 months Annette Alvarez NP Endocrinology [facility] CC: S SUPPORT SPECIALIST Annette Alvarez APRN CNP - 03/05/2020 1:30 PM CST Name: Marnie Duvall F/u for Diabetes (Last seen 11/07/2019). HPI: Marnie Duvall is a 55 year old female who presents for the management of type 1 diabetes. 1. Type 1 DM: Originally diagnosed at the age of 88 years old. DKA: No Current Regimen:Metformin was discontinued 01/2018 due to elevated creatinine. 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 Blood pressure medications include Lisinopril 10 mg qd. 3. Hyperlipidemia: Takes no medications for lipid control. 4. Hypothyroidism. Currently treated with levothyroxine 175 mcg daily. Prevention: Flu Shot- annually Pneumovax- recommended Opthalmology-yes recommend annually. Dental-recommend semiannually ASA-Yes, 81 mg qd Smoking- [...] file Gets together: Not on file Attends christian service: Not on file Active member of club or organization: Not on file Attends meetings of clubs or organizations: Not on file Relationship status: Not on file ??? Intimate partner violence Fear of current or ex partner: Not on file Emotionally abused: Not on file Physically abused: Not on file Forced sexual activity: Not on file Other Topics Concern ??? Parent/sibling w/ CABG, PA or angioplasty before 65F 55M? Not Asked Social History Narrative ??? Not on file MEDICATIONS: has a current medication list which includes the following prescription(s): acetone urine, glucagon,insulin aspart, insulin degludec, b-d u/f, aspirin, benzonatate, biotin, blood glucose, blood glucose monitoring, blood glucose, calcium carb-cholecalciferol, citalopram hydrobromide, guaifenesin-codeine, insulin pump, insulin syringe-needle u-100, levothyroxine, lisinopril, pregabalin, pyridoxine hcl, sennosides, tolterodine tartrate, topiramate, and tramadol hcl. ROS ROS: 10 point ROS of systems including Constitutional, Eyes, Respiratory, Cardiovascular, Gastroenterology, Genitourinary, Integumentary, Muscularskeletal, Psychiatric were all negative except for pertinent positives noted in my HPI. Physical Exam VS: BP 110/60 (BP Location: Left arm, Patient Position: Chair, Cuff Size: Adult Large) Pulse 70 Temp 98.5 ??F (36.9 ??C) (Oral) SpO2 97% GENERAL: AXOX3, NAD, well dressed, answering questions appropriately, appears stated age. HEENT: no exophthalmos, no proptosis, no lig lag, no retraction LUNGS: Normal respiratory effort EXTREMITIES: NEUROLOGY: CN grossly intact, no tremors MSK: grossly intact LABS: A1c: Component Latest Ref Rng & Units 04/16/2019 11/07/2019 03/05/2020 Hemoglobin A1C 0 - 5.6 % 7.4 (H) 7.3 (H) 6.6 (H) BMP: !COMPREHENSIVE Latest Ref Rng & [...] me. A/P Ms.Holly Debbie Duvall is a 55 year old here for the management of: 1. DM1 - Controlled. Today's A1c 6.6%. Pump download reviewed - appears to need a less aggressive carb ratio and a more aggressive correction. Change carb ratio and correction factor: Carbohydrate Ratio - Time Ratio 0000 5.4-->5.7 Sensitivity 30-->25 Rx for urine ketone strips and glucagon emergency kit provided today. Rx for Tresiba in the event of insulin pump failure provided today. Diabetes ed referral renewed today. 2. Hypertension - Historically ontrolled, continue Lisinopril 10 mg qd. 3. Hypothyroidism. Currently treated with levothyroxine 175 mcg/day. Clinically euthyroid. Will obtain TSH and adjust levothyroxine dose if indicated. Labs ordered today: Orders Placed This Encounter Procedures ??? Hemoglobin A1c ??? TSH with free T4 reflex ??? Lipid panel reflex to direct LDL Fasting ??? Albumin Random Urine Quantitative with Creat Ratio ??? Basic metabolic panel ??? AMBULATORY ADULT SENIOR CONTRACT SPECIALIST REFERRAL Radiology/Consults ordered today: More than 50% of the time spent with?Jadiel??on counseling / coordinating her??care??and discussing the above plan of care. The patient indicates understanding of the above issues and agrees withthe plan set forth. ??Total face to face??time was 25??minutes. Follow-up: 3 months with ulysses Alvarez NP Endocrinology [facility] CC: S SUPPORT SPECIALIST documented in this encounter Miscellaneous Notes Result Encounter Note - Annette Alvarez APRN CNP - 03/05/2020 1:30 PM SALES SUPPORT SPECIALIST Marnie, As previously messaged, there was no abnormal protein in your urine which is a great thing! Your thyroid test is in normal range. Your total and LDL cholesterol numbers look good. Triglycerides were elevated which is not uncommon with diabetes. We can discuss the impact of diet on this when I am back in clinic next week. Your kidney function test continues to be elevated. This is not new, the creatinine has been elevated since at least 2015. Your highest creatinine was 2.1 (in 2017). Your last creatinine was 1.41. Thisneeds to be monitored - the best thing you can do to prevent progression is good blood sugar control. Good BP control is also important since high BP puts additional stress on your kidneys. Also, it isimportant to remain well hydrated and dehydration worsens kidney function. Congratulations on the awesome A1c result! Keep up the good work. You can let me know if you have any other questions when I'm back in the office. Annette Alvarez NP Endocrinology S SUPPORT SPECIALIST documented in this encounter Plan of Treatment Upcoming Encounters Date Type Specialty Care Team Description 02/09/2022 Virtual Visit Surgery Mindi Llanes PA-C [address] [place] [address] (Wo rk) Scheduled Referrals Name Type Priority Associated Diagnoses [facility] ADULT Referral Routine Controlled type 1 Expect ed: SENIOR CONTRACT SPECIALIST diabetes mellitus with 03/05/2020, Expires: REFERRAL chronic kidney disease, 11/2020 unspecified CKD stage (H) documented as of this encounter Procedures Procedure Name Priority Date/Time Associated Diagnosis Comme nts ALBUMIN RANDOM URINE Routine 03/05/2020 2:40 PM Controlled typ e 1 Results for this QUANTITATIVE SALES SUPPORT SPECIALIST diabetes mellitus procedure are in with chronic kidney the resu lts disease, unspecified section . CKD stage (H) TSH WITH FREE T4 Routine 03/05/2020 2:39 PM Controlled type 1 Results for this REFLEX SALES SUPPORT SPECIALIST diabetes mellitus procedure are in with chronic kidney the resu lts disease, unspecified section . CKD stage (H) LIPID REFLEX TO Routine 03/05/2020 2:39 PM Controlled type 1 R esults for this DIRECT LDL PANEL SALES SUPPORT SPECIALIST diabetes mellitus proced ure are in with chronic kidney the resu lts disease, unspecified section . CKD stage (H) BASIC METABOLIC PANEL Routine 03/05/2020 2:39 PM Controlled ty pe 1 Results for this SALES SUPPORT SPECIALIST diabetes mellitus procedure are in with chronic kidney the resu lts disease, unspecified section . CKD stage (H) HEMOGLOBIN A1C Routine 03/05/2020 12:14 Controlled type 1 Resu lts for this PM SALES SUPPORT SPECIALIST diabetes mellitus procedure are in with chronic kidney the resu lts disease, unspecified section . CKD stage (H) documented in this encounter Results Albumin Random Urine Quantitative with Creat Ratio (03/05/2020 2:40 PM SALES SUPPORT SPECIALIST) [facility] Method Time Signature Creatinine 72 mg/dL 03/06/2020 [place] Urine 8:48 AM [facility] Albumin Urine <5 mg/L 03/06/2020 [place] mg/L 8:56 AM [facility] Albumin Urine Unable to 0 - 25 03/06/2020 [place] mg/g Cr calculate due mg/g Cr 8:56 AM [facility] to low value [facility] Specimen Anatomical Collection Method Collection Time Receive d Time (Source) Location / / Volume Laterality Urine specimen 03/05/2020 2:40 PM 020 2:41 (specimen) SALES SUPPORT SPECIALIST PM SALES SUPPORT SPECIALIST Annette Alvraez APRN HOUSEHOLD COORDINATOR LAB - URINE ORDERABLES Performing Organization Address City/State/ZIP Code Phon e Number [facility] [address] [place] [address] (ABNORMAL) Basic metabolic panel (03/05/2020 2:39 PM SALES SUPPORT SPECIALIST) [facility] Method Time Signature Sodium 139 133 - 144 03/06/2020 [facility] mmol/L 11:26 AM [facility] Potassium 4.6 3.4 - 5.3 03/06/2020 [facility] mmol/L 11:26 AM [facility] Chloride 108 94 - 109 03/06/2020 [facility] mmol/L 11:26 AM [facility] Carbon Dioxide 25 20 - 32 03/06/2020 [facility] mmol/L 11:43 AM [facility] Anion Gap 6 3 - 14 03/06/2020 [facility] mmol/L 11:43 AM [facility] Glucose 64 (L) 70 - 99 03/06/2020 [facility] mg/dL 11:43 AM [facility] Urea Nitrogen 38 (H) 7 - 30 03/06/2020 [facility] mg/dL 11:43 AM [facility] Creatinine 1.83 (H) 0.52 - 03/06/2020 [place] 1.04 11:43 AM [facility] mg/dL HOSPITAL GFR Estimate 31 (L) >60 03/06/2020 [place] mL/min/{1 11:43 AM [facility] .73_m2} HOSPITAL Comment: Non GFR Calc Starting 03/14/2018, serum creatinine ba sed estimated GFR (eGFR) will be calculated using the Chronic Kidney Dise [facility] Epidemiology Collaboration (CKD-EPI) equation. GFR Estimate If 35 (L) >60 mL/min/{1.73_m2} 03/06/2020 11 :43 AM [place] [facility] Comment: GFR Calc Starting 03/14/2018, serum creatinine ba sed estimated GFR (eGFR) will be calculated using the Chronic Kidney Dise [facility] Epidemiology Collaboration (CKD-EPI) equation. Calcium 9.1 8.5 - 10.1 mg/dL 03/06/2020 11:43 AM [facility] Specimen Anatomical Collection Method Collection Time Receive d Time (Source) Location / / Volume Laterality Blood specimen 03/05/2020 2:39 PM 020 2:40 (specimen) SALES SUPPORT SPECIALIST PM SALES SUPPORT SPECIALIST Annette Alvarez CARBURETOR SPECIALIST HOUSEHOLD COORDINATOR LAB - BLOOD ORDERABLES Performing Organization Address City/State/ZIP Code Phon e Number [facility] [address] [phone] [facility] [address] [place], [place] [address] [facility] [address] [id number], [facility] [phone] (ABNORMAL) Lipid panel reflex to direct LDL Fasting (03/05/2020 2:39 PM SALES SUPPORT SPECIALIST) athologist Signature Cholesterol 170 <200 mg/dL 03/06/2020 [place] 11:43 AM [facility] Triglycerides 224 (H) <150 mg/dL 03/06/2020 [place] 11:43 AM [facility] Comment: Borderline high: ??150-199 mg/dl High: ? 200-499 mg/dl Very high: ? >499 mg/dl HDL Cholesterol 57 >49 mg/dL 03/06/2020 11:51 AM [facility] LDL Cholesterol 68 <100 mg/dL 03/06/2020 11:51 AM [facility] Calculated [facility] Comment: Desirable: <100 mg/dl Non HDL Cholesterol 113 <130 mg/dL 03/06/2020 11:51 AM [facility] Specimen Anatomical Collection Method Collection Time Receive d Time (Source) Location / / Volume Laterality Blood specimen 03/05/2020 2:39 PM 020 2:40 (specimen) SALES SUPPORT SPECIALIST PM SALES SUPPORT SPECIALIST Annette Alvarez APRN, CNP LAB - BLOOD ORDERABLES Performing Organization Address City/State/ZIP Code Phon e Number [facility] [address] [place], [place] [address] [facility] [address] [place] [address], [place] [phone] TSH with free T4 reflex (03/05/2020 2:39 PM SALES SUPPORT SPECIALIST) athologist Signature TSH 1.97 0.40 - 4.00 03/06/2020 [facility] mU/L 11:57 AM [facility] Specimen Anatomical Collection Method Collection Time Receive d Time (Source) Location / / Volume Laterality Blood specimen 03/05/2020 2:39 PM 020 2:40 (specimen) SALES SUPPORT SPECIALIST PM SALES SUPPORT SPECIALIST Annette Alvarez APRN, CNP LAB - BLOOD ORDERABLES Performing Organization Address City/State/ZIP Code Phon e Number [facility] [address] [place] [address] (ABNORMAL) Hemoglobin A1c (03/05/2020 12:14 PM SALES SUPPORT SPECIALIST) P athologist Signature Hemoglobin A1C 6.6 (H) 0 - 5.6 % 03/05/2020 [place] 12:36 PM SALES SUPPORT SPECIALIST [facility] Comment: Normal <5.7% Prediabetes 5.7-6.4% ??Diab etes 6.5% or higher - adopted from ADA consensus guidelines. Specimen Anatomical Collection Method Collection Time Receive d Time (Source) Location / / Volume Laterality Blood specimen 03/05/2020 12:14 0 (specimen) PM SALES SUPPORT SPECIALIST 12:28 PM SALES SUPPORT SPECIALIST Annette Alvarez APRN HOUSEHOLD COORDINATOR LAB - BLOOD ORDERABLES Performing Organization Address City/State/ZIP Code Phon e Number [facility] [id number] [place] [phone] documented in this encounter Visit Diagnoses Diagnosis Controlled type 1 diabetes mellitus with chronic kidney disease, unspecified CKD stage (H) - Primary 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 Insulin pump in place Insulin pump status documented in this encounter Additional Health Concerns Assessment Noted Time PHQ-9 Depression Total Score: 0 02/26/2020 1:30 PM SALES SUPPORT SPECIALIST documented as of this encounter Care Teams Company Truck Driver Relationship Specialty Start Date End Date Goran Lloyd PCP - General Family Practice 12/29/17 05/21/[address] [address] Annette Alvarez, Nurse Practitioner Clinical Nurse 03/22/17 10/21/20 CARBURETOR SPECIALIST HOUSEHOLD COORDINATOR Specialist [address] [place] [address] Geospatial Intelligence Analyst Dietitian, Registered 05/25/18 [facility] [address] [place] [address] [place] [address] Tamar Murphy APRN Assigned PCP 02/08/20 1 HOUSEHOLD COORDINATOR [address] [place] [address] documented as of this encounter
--- OUTSIDE RECORDS SUMMARY | 2022-01-11 20:19 | XMS_ITS | Encounter Summary ---
:1965 Author Organization [facility] Address [address] [facility] [place] [address] Care Team Providers Name Role Phone Lashae Alvarez APRN, CNP Unavailable [phone] Goran Lloyd Primary Care Provider Jocelyn Davidson RD Unavailable Reason for Visit Reason Comments Diabetes Thyroid Problem Encounter Details Date Type Department Care Team Description 04/16/[address] [facility] Lashae Alvarez Uncontrolshilpa ed type 1 diabetes with renal manifestation (H) (Primary Dx); [facility] [place] KIM Monroe CNP Type 1 diabetes mellitus with complicati ons (H); [id number] [facility] [id number] [place] [address] Uncontrolled type 1 diabetes mellitus wi th stage 3 chronic kidney disease (H); [place], [place] PCOS (p olycystic ovarian syndrome); [id number] Flatulence, eructation, and gas pain; [phone] Hypothyroidism due to acquired atrophy of thyroid; (Work) Abnormal weight gain Social History Tobacco Use Types Packs/Day Years Used Date Smoking Tobacco: Never Smokeless Tobacco: Never Alcohol Use Standard Drinks/Week Comments Yes 0 (1 standard drink = 0.6 oz pure alcoho l) rare Sex Assigned at Date Recorded Female 03/04/2020 12:33 PM CHIROPRACTOR SOLE PRACTITIONER documented as of this encounter Last Filed Vital Signs Vital Sign Reading Time Taken Comments Blood Pressure 120/68 04/16/2019 1:18 PM CHIROPRACTOR SOLE PRACTITIONER Pulse 76 04/16/2019 11:28 AM CHIROPRACTOR SOLE PRACTITIONER Temperature 36.8 ??C (98.2 ??F) 04/16/2019 11:28 AM CHIROPRACTOR SOLE PRACTITIONER Respiratory Rate - - Oxygen Saturation 94% 04/16/2019 11:28 AM CHIROPRACTOR SOLE PRACTITIONER Inhaled Oxygen Concentration - - Weight 113.4 kg (250 lb) 04/16/2019 11:28 AM CHIROPRACTOR SOLE PRACTITIONER Height - - Body Mass Index 34.38 12/25/2014 9:45 PM CDT documented in this encounter Patient Instructions Patient InstructionsMimi Cyr CMA - 04/16/2019 11:30 AM CST In an effort to stay on schedule, please remember to check in for your next clinic appointment 15-20minutes early. This is necessary so your insulin pump/blood glucose meter or CGM can be uploaded andany labs can be done if necessary. We appreciate your understanding. 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 Previously planned to obtain gastric emptying study, but she never scheduled this. She is interested in scheduling now. Complications: Diabetes Complications Description / Detail Diabetic Retinopathy No retinopathy CAD / PAD No Neuropathy Yes, currently treated with gabapentin + Lyrica Nephropathy / Microalbuminuria Yes, ckd stage 3 Gastroparesis No Hypoglycemia Unawareness No 2. Hypertension: Blood Pressure today: BP Readings from Last 3 Encounters: 04/16/19 [...] Medical History: Diagnosis Date ??? Diabetes (H) History reviewed. No pertinent surgical history. Family Hx: History reviewed. No pertinent family history. Thyroid disease: no DM2: yes, father Autoimmune: DM1, SLE, RA, Vitiligo Social Hx: Social History Socioeconomic History ??? Marital status: Spouse name: Not on file ??? Number of children: Not on file ??? Years of education: Not on file ??? Highest education level: Not on file Occupational History ??? Not on file Social Needs ??? Financial resource strain: Not on file ??? Food insecurity: Worry: Not on file Inability: Not on file ??? Transportation needs: Medical: Not on file Non-medical: Not on file Tobacco Use ??? Smoking status: Never Smoker ??? Smokeless tobacco: Never Used Substance and Sexual Activity ??? Alcohol use: Yes Comment: rare ??? Drug use: No ??? Sexual activity: Not on file Lifestyle ??? Physical activity: Days per week: Not on file Minutes per session: Not on file ??? Stress: Not on file Relationships ??? Social connections: Talks on phone: Not on file Gets together: Not on file Attends bahai service: Not on file Active member of club or organization: Not on file Attends meetings of clubs or organizations: Not on file Relationship status: Not on file ??? Intimate partner violence: Fear of current or ex partner: Not on file Emotionally abused: Not on file Physically abused: Not on file Forced sexual activity: Not on file Other Topics Concern ??? Parent/sibling w/ CABG, NV or angioplasty before 65F 55M? Not Asked Social History Narrative ??? Not on file MEDICATIONS: has a current medication list which includes the following prescription(s): acetone urine, blood glucose, glucagon, insulin aspart, insulin syringe-needle u-100, levothyroxine, aspirin, biotin, blood glucose monitoring, blood glucose, calcium carb-cholecalciferol, citalopram hydrobromide, insulin degludec, insulin pen needle, insulin pump, lisinopril, niacin, pantoprazole, pregabalin, pyridoxine hcl,sennosides, tolterodine tartrate, topiramate, and tramadol hcl. ROS ROS: 10 point ROS of systems including Constitutional, Eyes, Respiratory, Cardiovascular, Gastroenterology, Genitourinary, Integumentary, Muscularskeletal, Psychiatric were all negative except for pertinent positives noted in my HPI. Physical Exam VS: BP 120/68 (BP Location: Right arm, Patient Position: Chair, Cuff Size: Adult Large) Pulse 76 Temp 98.2 ??F (36.8 ??C) (Oral) Wt 113.4 kg (250 lb) SpO2 94% BMI 34.38 kg/m?? GENERAL: AXOX3, NAD, well dressed, answering questions appropriately, appears stated age. HEENT: no exophthalmos, no proptosis, no lig lag, no retraction NECK: Supple, no thyromegaly or adenopathy CV: RRR LUNGS: CTAB EXTREMITIES: + edema bilaterally NEUROLOGY: CN grossly intact, no tremors MSK: grossly intact LABS: A1c: Component Latest Ref Rng & Units 12/09/2017 04/16/2019 Hemoglobin A1C 0 - 5.6 % 8.0 (A) 7.4 (H) BMP: !COMPREHENSIVE Latest Ref Rng & Units 02/04/2017 02/25/2017 SODIUM 133 - 144 mmol/L 140 138 POTASSIUM 3.4 - 5.3 mmol/L 5.6 (H) 4.9 CHLORIDE 94 - 109 mmol/L 106 106 BUN 7 - 30 mg/dL 16 25 Creatinine 0.52 - 1.04 mg/dL 1.40 (H) 1.60 (H) Glucose 70 - 99 mg/dL 134 (H) 157 (H) ANION GAP 3 - 14 mmol/L 9 12 CALCIUM 8.5 - 10.1 mg/dL 9.3 8.8 Urine Micro: Component Latest Ref Rng & Units 12/29/2017 Creatinine Urine mg/dL 56 Albumin Urine mg/L mg/L <5 Albumin Urine mg/g Cr 0 - 25 mg/g Cr Unable to calculate due to low value LFTs/Lipids: 06/07/2017 Total cholesterol: 148 mg/dL Triglycerides: 135 mg/dL LDL cholesterol: 57 mg/dL HDL cholesterol: 64 mg/dL TFTs: TSH 0.56 (07/05/2016) TSH 0.397 (06/12/2017) Vitamin D: Blood Glucose Meter reviewed. All pertinent notes, labs, and images personally reviewed by me. A/P Ms.Holly Debbie Duvall is a 54 year old here for the management of: 1. DM1 - Fair control. A1c 7.4%. Gastric emptying study was never previously scheduled. Still having symptoms. Plan to schedule gastric emptying study. Also having difficulty swallowing. Consider swallowing study, depending on gastricemptying study results There is some variability among people, most [...] regular soda or juice. 2. Hypertension - Controlled, continue Lisinopril 10 mg qd. 3. Hyperlipidemia - On statin therapy. Plan to continue. Monitor fastin lipid panel annually. 4. Hypothyroidism. Currently treated with levothyroxine 175 mcg/day. Will obtain TFT's and adjust levo dose if indicated. 5. Abnormal weight gain. + elevated glucose, + HTN. Obtain 8 am cortisol level to rule out Cushings Disease. Labs ordered today: Orders Placed This Encounter Procedures ??? NM Gastric Emptying ??? Hemoglobin A1c ??? Albumin Random Urine Quantitative with Creat Ratio ??? TSH with free T4 reflex ??? Cortisol ??? Basic metabolic panel Radiology/Consults ordered today: More than 50% of the time spent with??Ms.??Ratamosa??on counseling / coordinating her??care??and discussing the above plan of care. The patient indicates understanding of the above issues and agrees withthe plan set forth. ??Total face to face??time was 25??minutes. Follow-up: 3 months Lashae Alvarez NP Endocrinology [facility] CC: OPRACTOR SOLE PRACTITIONER documented in this encounter Miscellaneous Notes Result Encounter Note - Lashae Alvarez APRN CNP - 04/16/2019 11:30 AM CHIROPRACTOR SOLE PRACTITIONER Marnie, Your thyroid labs are in normal range. I recommend continuing levothyroxine 175 mcg/day. I'll renew your prescription. There was no abnormal protein in your urine. Your serum calcium was slightly elevated. Unclear if this is true finding so I recommend repeating labs in another 4 weeks to recheck. Your creatinine was 1.64, eGFR was low at 35. Here's a copy of your lab results. Let me know if you have questions. Lashae Alvarez NP Endocrinology OPRACTOR SOLE PRACTITIONER Addendum Note - Lashae Alvarez APRN CNP - 04/16/2019 11:30 AM CHIROPRACTOR SOLE PRACTITIONER Addended by: LASHAE ALVAREZ on: 04/18/2019 06:22 AM Modules accepted: Orders OPRACTOR SOLE PRACTITIONER documented in this encounter Plan of Treatment Upcoming Encounters Date Type Specialty Care Team Description 02/09/2022 Virtual Visit Surgery Mindi Llanes, PRETTY [address] [place] [address] (Wo rk) documented as of this encounter Procedures Procedure Name Priority Date/Time Associated Diagnosis Comme nts BASIC METABOLIC PANEL Routine 04/16/2019 11:27 Type 1 diabetes Results for this AM CHIROPRACTOR SOLE PRACTITIONER mellitus with procedure are in complications (H) the result s section. TSH WITH FREE T4 Routine 04/16/2019 11:26 Uncontrolled type 1 Results for this REFLEX AM CHIROPRACTOR SOLE PRACTITIONER diabetes with renal procedur e are in manifestation (H) the result s section. ALBUMIN RANDOM URINE Routine 04/16/2019 11:26 Uncontrolled typ e 1 Results for this QUANTITATIVE AM CHIROPRACTOR SOLE PRACTITIONER diabetes with renal procedur e are in manifestation (H) the result s section. HEMOGLOBIN A1C Routine 04/16/2019 11:26 Uncontrolled type 1 Re sults for this AM CHIROPRACTOR SOLE PRACTITIONER diabetes with renal procedur e are in manifestation (H) the result s section. documented in this encounter Results (ABNORMAL) Renal panel (Alb, BUN, Ca, Cl, CO2, Creat, Gluc, Phos, K, Na) (08/16/2019 5:57 PM CDT) Analysis Performed At Patho logist Time Signature Sodium 136 133 - 144 08/16/2019 [facility] mmol/L 6:32 PM [facility] Potassium 4.6 3.4 - 5.3 08/16/2019 [facility] mmol/L 6:32 PM [facility] Chloride 107 94 - 109 08/16/2019 [facility] mmol/L 6:32 PM [facility] Carbon Dioxide 24 20 - 32 08/16/2019 [facility] mmol/L 6:39 PM [facility] Anion Gap 5 3 - 14 08/16/2019 [facility] mmol/L 6:39 PM [facility] Glucose 166 (H) 70 - 99 08/16/2019 [facility] mg/dL 6:39 PM [facility] Urea Nitrogen 21 7 - 30 08/16/2019 [facility] mg/dL 6:39 PM [facility] Creatinine 1.41 (H) 0.52 - 08/16/2019 [facility] 1.04 mg/dL 6:39 PM T [facility] GFR Estimate 42 (L) >60 08/16/2019 [place] mL/min/{1. 6:39 PM CDT [facility] 73_m2} HOSPITAL Comment: Non GFR Calc Starting 03/14/2018, serum creatinine ba sed estimated GFR (eGFR) will be calculated using the Chronic Kidney Dise [employer] [facility] Epidemiology Collaboration (CKD-EPI) equation. GFR Estimate If 49 (L) >60 mL/min/{1.73_m2} 08/16/2019 6: 39 PM [place] Black [facility] Comment: GFR Calc Starting 03/14/2018, serum creatinine ba sed estimated GFR (eGFR) will be calculated using the Chronic Kidney Dise [employer] [facility] Epidemiology Collaboration (CKD-EPI) equation. Calcium 9.0 8.5 - 10.1 mg/dL 08/16/2019 6:[address] [facility] Phosphorus 3.4 2.5 - 4.5 mg/dL 08/16/2019 6:[address] [facility] Albumin 3.9 3.4 - 5.0 g/dL 08/16/2019 6:39 PM CDT [facility] Specimen Anatomical Collection Method Collection Time Receive d Time (Source) Location / / Volume Laterality Blood specimen 08/16/2019 5:57 PM 020 5:58 (specimen) CDT PM CDT Lashae Alvarez APRN PHARMACIST CRITICAL CARE LAB - BLOOD ORDERABLES Performing Organization Address City/State/ZIP Code Phon e Number [place] [address] [place] [id number] [facility] [address] [place], [place] [address], [facility] [phone] [place] [address] [place] [address], [facility] Cortisol (08/16/2019 5:57 PM CDT) P athologist Signature Cortisol Serum 14.2 4 - 22 08/16/2019 [facility] ug/dL 10:[address] [facility] Comment: 8 AM Cortisol Reference Range = 4-22 ug/ dL 4 PM Cortisol Reference Range = 3-17 ug/ dL Specimen Anatomical Collection Method Collection Time Receive d Time (Source) Location / / Volume Laterality Blood specimen 08/16/2019 5:57 PM 020 5:58 (specimen) CDT PM CDT Lashae Alvarez APRN PHARMACIST CRITICAL CARE LAB - BLOOD ORDERABLES Performing Organization Address City/State/ZIP Code Phon e Number [facility] [address] (ABNORMAL) Basic metabolic panel (04/16/2019 11:27 AM CHIROPRACTOR SOLE PRACTITIONER) [facility] Method Time Signature Sodium 137 133 - 144 04/17/2019 [facility] mmol/L 7:36 AM [facility] Potassium 4.4 3.4 - 5.3 04/17/2019 [facility] mmol/L 7:36 AM [facility] Chloride 106 94 - 109 04/17/2019 [facility] mmol/L 7:36 AM [facility] Carbon Dioxide 27 20 - 32 04/17/2019 [facility] mmol/L 7:41 AM [facility] Anion Gap 4 3 - 14 04/17/2019 [place] mmol/L 7:41 AM [facility] Glucose 219 (H) 70 - 99 04/17/2019 [facility] mg/dL 7:41 AM [facility] Urea Nitrogen 31 (H) 7 - 30 04/17/2019 [place] mg/dL 7:41 AM [facility] Creatinine 1.64 (H) 0.52 - 04/17/2019 [facility] 1.04 7:41 AM [facility] mg/dL [facility] GFR Estimate 35 (L) >60 04/17/2019 [place] mL/min/{1 7:41 AM [facility] .73_m2} [facility] Comment: Non GFR Calc Starting 03/14/2018, serum creatinine ba sed estimated GFR (eGFR) will be calculated using the Chronic Kidney Dise [employer] [facility] Epidemiology Collaboration (CKD-EPI) equation. GFR Estimate If 41 (L) >60 mL/min/{1.73_m2} 04/17/2019 7:41 AM [facility] Black [facility] Comment: GFR Calc Starting 03/14/2018, serum creatinine ba sed estimated GFR (eGFR) will be calculated using the Chronic Kidney Dise [facility] Epidemiology Collaboration (CKD-EPI) equation. Calcium 10.3 (H) 8.5 - 10.1 mg/dL 04/17/2019 7:41 AM CHIROPRACTOR SOLE PRACTITIONER [facility] Specimen Anatomical Collection Method Collection Time Receive d Time (Source) Location / / Volume Laterality Blood specimen 04/16/2019 11:27 0 1:14 (specimen) AM CHIROPRACTOR SOLE PRACTITIONER PM CHIROPRACTOR SOLE PRACTITIONER Lashae Alvarez APRN, CNP LAB - BLOOD ORDERABLES Performing Organization Address City/[facility]/ZIP Code Phon e Number [facility] [address] [place] [id number] TSH with free T4 reflex (04/16/2019 11:26 AM CHIROPRACTOR SOLE PRACTITIONER) athologist Signature TSH 1.18 0.40 - 4.00 04/17/2019 [facility] mU/L 8:25 AM CHIROPRACTOR SOLE PRACTITIONER [facility] Specimen Anatomical Collection Method Collection Time Receive d Time (Source) Location / / Volume Laterality Blood specimen 04/16/2019 11:26 0 (specimen) AM CHIROPRACTOR SOLE PRACTITIONER 11:27 AM CHIROPRACTOR SOLE PRACTITIONER Lashae Alvarez APRN, CNP LAB - BLOOD ORDERABLES Performing Organization Address City/[facility]/ZIP Code Phon e Number [facility] [address] [address] Albumin Random Urine Quantitative with Creat Ratio (04/16/2019 11:26 AM CHIROPRACTOR SOLE PRACTITIONER) P athologist Signature Creatinine 121 mg/dL 04/17/2019 [place] Urine 7:03 AM [facility] Albumin Urine 10 mg/L 04/17/2019 [place] mg/L 7:14 AM [facility] Albumin Urine 7.86 0 - 25 04/17/2019 [place] mg/g Cr mg/g Cr 7:14 AM [facility] Specimen Anatomical Collection Method Collection Time Receive d Time (Source) Location / / Volume Laterality Urine specimen 04/16/2019 11:26 0 (specimen) AM CHIROPRACTOR SOLE PRACTITIONER 11:27 AM CHIROPRACTOR SOLE PRACTITIONER Lashae Alvarez APRN, CNP LAB - URINE ORDERABLES Performing Organization Address City/[facility]/ZIP Code Phon e Number [facility] [address] [place] [address] (ABNORMAL) Hemoglobin A1c (04/16/2019 11:26 AM CHIROPRACTOR SOLE PRACTITIONER) P athologist Signature Hemoglobin A1C 7.4 (H) 0 - 5.6 % 04/16/2019 [place] 11:42 AM CHIROPRACTOR SOLE PRACTITIONER [facility] Comment: Normal <5.7% Prediabetes 5.7-6.4% ??Diab etes 6.5% or higher - adopted from ADA consensus guidelines. Specimen Anatomical Collection Method Collection Time Receive d Time (Source) Location / / Volume Laterality Blood specimen 04/16/2019 11:26 0 (specimen) AM CHIROPRACTOR SOLE PRACTITIONER 11:27 AM CHIROPRACTOR SOLE PRACTITIONER Lashae Alvarez YOUNG ADULT LIBRARIAN PHARMACIST CRITICAL CARE LAB - BLOOD ORDERABLES Performing Organization Address City/[facility]/ZIP Code Phon e Number [facility] [address] [place] [address] documented in this encounter Visit Diagnoses Diagnosis Uncontrolled type 1 diabetes with renal manifestation - Primary Type I (juvenile type) diabetes mellitus with renal manifestations, uncontrolled Type 1 diabetes mellitus with complicati ons (H) Uncontrolled type 1 diabetes mellitus wi th stage 3 chronic kidney disease Type I (juvenile type) diabetes mellitus with renal manifestations, uncontrolled PCOS (polycystic ovarian syndrome) Polycystic ovaries Flatulence, eructation, and gas pain 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 Abnormal weight gain documented in this encounter Care Teams Car Deliverer Relationship Specialty Start Date End Date Goran Lloyd PCP - General Family Practice 12/29/17 05/21/20 [facility] [address] [place] [address] Lashae Alvarez, Nurse Practitioner Clinical Nurse 03/22/17 10/21/20 YOUNG ADULT LIBRARIAN PHARMACIST CRITICAL CARE Specialist [address] [place] [address] Maintenance Tech Dietitian, Registered 05/25/18 [facility] [address] [place] [address] [place] CAR[place] [id number] documented as of this encounter
--- OUTSIDE RECORDS SUMMARY | 2022-01-11 20:19 | XMS_ITS | Encounter Summary ---
:1965 Author Organization [facility] Address [address] [place] [address]. [place] [address] Care Team Providers Name Role Phone Annette Alvarez Mabel STONEHAND SHIRT MARKER Unavailable [phone] Goran Lloyd Primary Care Provider Jocelyn Davidson RD Unavailable Reason for Visit Reason Comments Medication Refill Encounter Details Date Type Department Care Team Description 09/30/2018 Refill [facility] Annette Alvarez, Medication Refill [facility] STONEHAND SHIRT MARKER [phone] [place] [address] (Wo rk) Social History Tobacco Use Types Packs/Day Years Used Date Smoking Tobacco: Never Smokeless Tobacco: Never Alcohol Use Standard Drinks/Week Comments Yes 0 (1 standard drink = 0.6 oz pure alcoho l) rare Sex Assigned at Date Recorded Female 03/04/2020 12:33 PM INCOME TAX CONSULTANT documented as of this encounter Miscellaneous Notes Telephone Encounter - Brea Charles RN - 10/01/2018 8:23 AM CDT Denied- dose was changed. Brea Charles RN documented in this encounter Plan of Treatment Upcoming Encounters Date Type Specialty Care Team Description 02/09/2022 Virtual Visit Surgery Mindi Llanes PA-C [address] [facility] [address] [place] [address] (Wo rk) documented as of this encounter Visit Diagnoses Diagnosis 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 documented in this encounter Care Teams Pruner Relationship Specialty Start Date End Date Goran Lloyd PCP - General Family Practice 12/29/17 05/21/[address] [address] Annette Alvarez, Nurse Practitioner Clinical Nurse 03/22/17 10/21/20 STONEHAND SHIRT MARKER Specialist [address] [place], [place] [id number] Jocelyn Davidson RD Office Machine Servicer Dietitian, Registered 05/25/18 JET SERRANO [facility] [place] [id number] documented as of this encounter
--- OUTSIDE RECORDS SUMMARY | 2022-01-11 20:19 | XMS_ITS | Encounter Summary ---
:1965 Author Organization [place] Address [address] [place] [address] Care Team Providers Name Role Phone Annette Alvarez APRN BRAZER HELPER INDUCTION Unavailable [phone] Goran Lloyd Primary Care Provider Jocelyn Davidson RD Unavailable Reason for Visit Reason Onset Date Comments Diabetes 01/25/2020 Encounter Details Date Type Department Care Team Description 01/25/2020 Telephone [facility] Annette Alvarez, Diabetes [place] PROPERTY CARETAKER BRAZER HELPER INDUCTION [address] [phone] [place] [address] (Wo rk) Social History Tobacco Use Types Packs/Day Years Used Date Smoking Tobacco: Never Smokeless Tobacco: Never Alcohol Use Standard Drinks/Week Comments Yes 0 (1 standard drink = 0.6 oz pure alcoho l) rare Sex Assigned at Date Recorded Female 03/04/2020 12:33 PM ACTUARIAL DIRECTOR documented as of this encounter Miscellaneous Notes Telephone Encounter - Annette Alvarez APRN BRAZER HELPER INDUCTION - 01/25/2020 3:46 PM CDT Pump download reviewed. She's been having elevated blood sugars throughout the day. Recommend the following changes: Also advised to use temp basal rate increase of 10% if blood sugars continue to run high over the weekend. Changes made in clinic on 01/25/2020. Current Regimen: Insulin pump - Tandem + Dexcom Time Rate (U/hr) 0000 2.0-->2.10 ? Carbohydrate Ratio - Time Ratio 0000 5.8-->5.3 ? Sensitivity 27 Active Insulin Time 4.0 hours Basal 56% (40.9 units) Bolus 44% (32 units) Total Carbohydrates/day 95.2 grams Total Insulin/day 72.9 units Average Blood Sugar 173; BG range Lo-Hi BS Checks 4.7 times a day ? Annette Alvarez NP Endocrinology ARIAL DIRECTOR Telephone Encounter - Mimi Cyr CMA - 01/25/2020 11:13 AM CDT Patient reports that she has been having quite a few BG lows. Comes in to have Tslim pump downloadedfor providers review. Report printed and on providers desk. Please review and call patient to discuss lows. Report dates are from 01/11 - 01/25/2020. Mimi Cyr CMA on 01/25/2020 at 11:14 AM documented in this encounter Plan of Treatment Upcoming Encounters Date Type Specialty Care Team Description 02/09/2022 Virtual Visit Surgery Mindi Llanes PA-C [address] [facility] [address] [place] [address] (Wo rk) documented as of this encounter Visit Diagnoses Not on filedocumented in this encounter Care Teams Ratchet Setter Relationship Specialty Start Date End Date Goran Lloyd PCP - General Family Practice 12/29/17 05/21/20 [facility] [address] [place] [address] Annette Alvarez, Nurse Practitioner Clinical Nurse 03/22/17 10/21/20 PROPERTY CARETAKER BRAZER HELPER INDUCTION Specialist [address] [place] [address] Biodiesel Technology Manager Dietitian, Registered 05/25/18 [facility] MAGGIE [facility] [place] [address] [place] [address] documented as of this encounter
--- OUTSIDE RECORDS SUMMARY | 2022-01-11 20:19 | XMS_ITS | Encounter Summary ---
:1965 Author Organization [place] Address [address] [facility] [place] [address] Care Team Providers Name Role Phone Annette Alvarez KIM RODRIGUEZ Unavailable Goran Lloyd Primary Care Provider Jocelyn Davidson RD Unavailable Tamar Murphy APRN COUNTY AGENT Unavailable Reason for Referral Diagnostic Imaging XR (Routine) - Closed Specialty Diagnoses / Procedures Referred By Contact Refer red To Contact Diagnoses Cough Tamar Murphy APRN CNP Procedures XR Chest [address] [place] [address] [phone] Referral ID Status Reason Start Date Expiration Date Visits Requ ested Visits Authorized [id number] Closed 02/26/2020 02/25/2021 1 1 RN Reason for Visit Reason Comments Cough Encounter Details Date Type Department Care Team Description 02/26/2020 Office Visit [facility] Tamar Murphy Cough (Primary Dx) [place] KIM [place] AGENT [address] [address] [phone] Social History Tobacco Use Types Packs/Day Years Used Date Smoking Tobacco: Never Smokeless Tobacco: Never Alcohol Use Standard Drinks/Week Comments Yes 0 (1 standard drink = 0.6 oz pure alcoho l) rare Sex Assigned at Date Recorded Female 03/04/2020 12:33 PM CVT RN COVID-19 Exposure Response Date Recorded In the last month, have you been in contact with No / Unsure 02/03/2020 12:21 PM CVT RN someone who was confirmed or suspected to have Coronavirus / COVID-19? documented as of this encounter Last Filed Vital Signs Vital Sign Reading Time Taken Comments Blood Pressure 138/70 02/26/2020 1:22 PM CVT RN Pulse 67 02/26/2020 1:22 PM CVT RN Temperature 37 ??C (98.6 ??F) 02/26/2020 1:22 PM CVT RN Respiratory Rate 19 02/26/2020 1:31 PM CVT RN Oxygen Saturation 96% 02/26/2020 1:22 PM CVT RN Inhaled Oxygen Concentration - - Weight 113.4 kg (250 lb) 02/26/2020 1:22 PM CVT RN Height 180.3 cm (5' 11) 02/26/2020 1:22 PM CVT RN Body Mass Index 34.87 02/26/2020 1:22 PM CVT RN documented in this encounter Patient Instructions Patient InstructionsGiTamar alston APRN CNP - 02/26/2020 1:30 PM CST Prednisone 2 tabs (40 mg) once daily x 5 days. No NSAID use while using prednisone (Advil, ibuprofen, naproxen, Aleve) Consider nasal irrigation ([place] Pot) Benzonatate 1 tab two times per day as needed for cough. RN documented in this encounter Progress Notes Tamar Murphy APRN CNP - 02/26/2020 1:30 PM CST Subjective Marnie Duvall is a 54 year old female who presents to clinic today for the following health issues: HPI Acute Illness Acute illness concerns: harsh cough Onset/Duration: 2 weeks Symptoms: Fever: no Chills/Sweats: no Headache (location?): YES Sinus Pressure: YES Conjunctivitis: no Ear Pain: YES- left Rhinorrhea: no Congestion: no Sore Throat: no Cough: YES Wheeze: YES- Decreased Appetite: no Nausea: no Vomiting: no Diarrhea: no Dysuria/Freq.: no Dysuria or Hematuria: no Fatigue/Achiness: no Sick/Strep Exposure: no Therapies tried and outcome: Vicks, Tylenol, Sinnex nasal spray, Mucinex. Tested negative for COVID-19 on 02/11/2020. Has since had close frequent contact with coworker that tested positive this week for COVID-19. Nearly passing out with coughing so hard. Review of Systems Constitutional, HEENT, cardiovascular, pulmonary, gi and gu systems are negative, except as otherwise noted. Objective BP 138/70 (BP Location: Right arm, Patient Position: Sitting, Cuff Size: Adult Large) Pulse 67 Temp 98.6 ??F (37 ??C) (Oral) Resp 19 Ht 1.803 m (5' 11) Wt 113.4 kg (250 lb) SpO2 96% BMI 34.87 kg/m?? Body mass index is 34.87 kg/m??. Physical Exam GENERAL: healthy, alert and no distress NECK: no adenopathy, no asymmetry, masses, or scars and thyroid normal to palpation RESP: expiratory wheeze to bilateral upper lobes. CV: regular rate and rhythm, normal S1 S2, no S3 or S4, no murmur, click or rub, no peripheral edemaand peripheral pulses strong MS: no gross musculoskeletal defects noted, no edema CXR - Normal- no infiltrates, effusions, pneumothoraces, cardiomegaly or masses COVID-19 swab pending. Assessment & Plan Marnie was seen today for cough. Diagnoses and all orders for this visit: Cough - XR Chest 2 Views - Symptomatic COVID-19 Virus (Coronavirus) by PCR - predniSONE (DELTASONE) 20 MG tablet; Take 2 tablets (40 mg) by mouth daily for 5 days - benzonatate (TESSALON) 200 MG capsule; Take 1 capsule (200 mg) by mouth 2 times daily as needed for cough Chest X-ray without findings. Will plan for bronchitis coverage. Discussed prednisone use and DMI history. Discussed medication use, risks, benefits, and side effects. COVID-19 swab for potential exposure. Supportive measures as below. Patient Instructions Prednisone 2 tabs (40 mg) once daily x 5 days. No NSAID use while using prednisone (Advil, ibuprofen, naproxen, Aleve) Consider nasal irrigation ([place] Pot) Benzonatate 1 tab two times per day as needed for cough. Return in about 2 weeks (around 03/11/2020) for if not improved. . Tamar Murphy APRN CNP [facility] RN documented in this encounter Plan of Treatment Upcoming Encounters Date Type Specialty Care Team Description 02/09/2022 Virtual Visit Surgery Mindi Llanes, [place]TT[place] [address] [place] [address] (Wo rk) documented as of this encounter Procedures Procedure Name Priority Date/Time Associated Diagnosis Comme nts XR CHEST 2 VIEWS Routine 02/26/2020 2:12 PM Cough Resul ts for this CVT RN procedure are i n the results section. COVID-19 VIRUS Routine 02/26/2020 1:00 PM Cough Results for this (CORONAVIRUS) BY CVT RN procedure a re in PCR the results section. documented in this encounter Results XR Chest 2 Views (02/26/2020 2:12 PM CVT RN) Anatomical Region Laterality Modality Chest Computed Radiography Specimen (Source) Anatomical Location Collection Method / Collectio n Time Received Time / Laterality Volume Impressions 02/26/2020 2:25 PM CVT RN IMPRESSION: PA and lateral views of the chest. Lungs are clear. Heart is normal in size. No effusions are evid ent. No pneumothorax. Degenerative spine changes are noted. Ol d healed lateral right upper rib fractures and mid left rib fractures are again noted. TONIO CRANE MD Narrative 02/26/2020 2:25 PM CVT RN CHEST TWO VIEWS ??02/26/2020 2:12 PM HISTORY: [...] again noted. TONIO CRANE MD Tamar Murphy LAYOUT INSPECTOR COUNTY AGENT IMG DIAGNOSTIC IMAGING ORDER DEJUAN Symptomatic COVID-19 Virus (Coronavirus) by PCR (02/26/2020 1:00 PM CVT RN) [facility] Method Time Signature COVID-19 Nasopharyngeal 02/26/2020 [facility] Virus PCR to 3:08 PM CVT RN [facility] - [place] Source COVID-19 Not Detected 02/27/2020 [facility] Virus PCR to 4:31 PM CVT RN [facility] [place] - [facility]STIC Result LABORATORY, [facility] Comment: Collection of multiple specimens from th e same patient may be necessary to detect the virus. The possibility of a f alse negative should be considered if the patient's recent exposure or clinica l presentation suggests 2019 nCOV infection and diagnostic tests for other causes of illness are negative. Repeat testing may be considered in this setting. Patient sample was heat inactivated and amplified using the HDPCR SARS-CoV-2 assay (Vocent.). The HDPCRTM JAYDEN S-CoV-2 assay is a reverse software development intern real-time polymerase chain reaction (qRT-PCR) test intended for the qualitative detection of nucleic aci d from SARS-CoV-2 in human nasopharyngeal swabs, oropharyngeal swabs, anterior nasal swabs, mid-turbinate nasal swabs a s well as nasal aspirate, nasal wash, and bronchoalveolar lavage (BAL) specime ns from individuals who are suspected of COVID-19 by their healthcare provider . A negative result does not rule out the presence of real-time PCR inhibitors in the specimen or COVID-19 RNA in andi ntrations below the limit of detection of the assay. The possibility of a fals e negative should be considered if the patients recent exposure or clinical pr esentation suggests COVID-19. Additional testing or repeat testing req uires consultation with the laboratory. Nasopharyngeal specimen is the preferred choice for swab-based SARS CoV2 testing. When collection of a nasopharyn geal swab is not possible the following are acceptable alternatives: an oropharyngeal (OP) specimen collected by a healthcare professional, or a nasal mid-turbinate (NMT) swab collected by a healthcare professional or by onsite self-collection (using a flocked tapered swab), or an anterior nares specimen collected by a healthcare profe ssional or by onsite self-collection (using a round foam swab). (Centers for Disease Control) Testing performed by [facility] ([facility]) [address] [facility] [address] [facility] [address] The test performance characteristics wer e determined by [facility]. It has not been cleared or approved by the FDA. The laboratory is regulated under the Cl inical Laboratory Improvement Amendments of 1988 (CLIA-88) as qualifie d to perform high-complexity testing. This test is used for clinical purposes. It should not be regarded as investigational or for research. Specimen (Source) Anatomical Collection Method Collection Time Re ceived Time Location / / Volume Laterality Specimen from 02/26/2020 1:00 02/26/2020 nasopharyngeal PM CVT RN 3:08 PM CVT RN structure (specimen) Tamar Murphy APRN COUNTY AGENT LAB - MICRO GENERAL ORDERABL ES Performing Organization Address City/State/ZIP Code Phon e Number [facility] [address] DIAGNOSTIC LABORATORY, [address] [facility] [address] [facility] [id number] [place] [address] [place] documented in this encounter Visit Diagnoses Diagnosis Cough - Primary documented in this encounter Additional Health Concerns Infection Onset Date Last Indicated Resolved Time Rule Out COVID-19 02/26/2020 02/26/2020 02/27/2020 4:3 2 PM CVT RN Assessment Noted Time PHQ-9 Depression Total Score: 0 02/26/2020 1:30 PM CVT RN documented as of this encounter Care Teams Material Mixer Relationship Specialty Start Date End Date Goran Lloyd PCP - General Family Practice 12/29/17 05/21/20 [facility] [address] [place] [address] Annette Alvarez, Nurse Practitioner Clinical Nurse 03/22/17 10/21/20 [facility] [place] AGENT Specialist [address] [place] [address] Universal Branch Consultant Dietitian, Registered 05/25/18 [facility] [address] [place] [address] [place] [address] Tamar Murphy APRN Assigned PCP 02/08/20 1 COUNTY AGENT [address] [place] [address] documented as of this encounter
--- OUTSIDE RECORDS SUMMARY | 2022-01-11 20:19 | XMS_ITS | Encounter Summary ---
:1965 Author Organization [place] Address [address] [place] [address]. [place] [address] Care Team Providers Name Role Phone Annette Alvarez KIM HELP DESK SUPPORT Unavailable [phone] Goran Lloyd Primary Care Provider Jocelyn Davidson RD Unavailable Encounter Details Date Type Department Care Team Description 08/24/2019 Travel Social History Tobacco Use Types Packs/Day Years Used Date Smoking Tobacco: Never Smokeless Tobacco: Never Alcohol Use Standard Drinks/Week Comments Yes 0 (1 standard drink = 0.6 oz pure alcoho l) rare Sex Assigned at Date Recorded Female 03/04/2020 12:33 PM DIGITAL PRODUCTION MANAGER COVID-19 Exposure Response Date Recorded In the last month, have you been in contact with No / Unsure 08/24/2019 3:39 PM CDT someone who was confirmed or suspected to have Coronavirus / COVID-19? documented as of this encounter Plan of Treatment Upcoming Encounters Date Type Specialty Care Team Description 02/09/2022 Virtual Visit Surgery Mindi Llanes PA-C [address] [place] [address] (Wo rk) documented as of this encounter Visit Diagnoses Not on filedocumented in this encounter Care Teams Ship'S Electronic Warfare Officer Relationship Specialty Start Date End Date Goran Lloyd PCP - General Family Practice 12/29/17 05/21/[address] [place] [address] Annette Alvarez, Nurse Practitioner Clinical Nurse 03/22/17 10/21/20 [facility] QUALITY ASSURANCE ANALYST HELP DESK SUPPORT Specialist [address] [place] [address] Inhalation Therapy Aides Teacher Dietitian, Registered 05/25/18 [facility] MAGGIE [facility] [place] [address] documented as of this encounter
--- OUTSIDE RECORDS SUMMARY | 2022-01-11 20:20 | XMS_ITS | Encounter Summary ---
:1965 Author Organization [place] Address [address] [facility] [place] [address] Care Team Providers Name Role Phone Annette Alvarezmamadou ALVAREZ CENTRAL OFFICE MECHANIC Unavailable Goran Lloyd Primary Care Provider Reason for Visit Reason Onset Date Comments Forms 01/26/2018 DMV form insulin dep endent Encounter Details Date Type Department Care Team Description 01/26/2018 Telephone [facility] Annette Alvarez Forms (DMV form insulin Clinic [place] KIM [place] CENTRAL OFFICE MECHANIC dependent) [address] [place] [address] [phone] Social History Tobacco Use Types Packs/Day Years Used Date Smoking Tobacco: Never Smokeless Tobacco: Never Alcohol Use Standard Drinks/Week Comments Yes 0 (1 standard drink = 0.6 oz pure alcoho l) rare Sex Assigned at Date Recorded Female 03/04/2020 12:33 PM PRECISE WINDER documented as of this encounter Miscellaneous Notes Telephone Encounter - Mimi Cyr CMA - 01/26/2018 1:32 PM CDT Insulin-Treated Diabetes Mellitus Report form completed and faxed to the [place] Department of Public Safety at fax# [phone]. (ph#[phone]) Original given to patient. Copy sent to abstracting to be entered into the EMR. Mimi Cyr M.A. documented in this encounter Plan of Treatment Upcoming Encounters Date Type Specialty Care Team Description 02/09/2022 Virtual Visit Surgery Mindi Llanes PA-C [address] [facility] [address] [place] [address] (Wo rk) documented as of this encounter Visit Diagnoses Not on filedocumented in this encounter Care Teams Philosophy Specialist Relationship Specialty Start Date End Date Goran Lloyd PCP - General Family Practice 12/29/17 05/21/[address] [address] Annette Alvarez, Nurse Practitioner Clinical Nurse Specialist 10/21/20 RECAPPER CENTRAL OFFICE MECHANIC [address] [place] [address] documented as of this encounter
--- OUTSIDE RECORDS SUMMARY | 2022-01-11 20:20 | XMS_ITS | Encounter Summary ---
:1965 Author Organization [place] Address [address] [place] [address]. [place] [address] Care Team Providers Name Role Phone Annette Alvarez RISK OFFICER WOOL HAT FLANGER Unavailable [phone] Goran Lloyd Primary Care Provider Jocelyn Davidson RD Unavailable Encounter Details Date Type Department Care Team Description 07/19/2018 Travel Social History Tobacco Use Types Packs/Day Years Used Date Smoking Tobacco: Never Smokeless Tobacco: Never Alcohol Use Standard Drinks/Week Comments Yes 0 (1 standard drink = 0.6 oz pure alcoho l) rare Sex Assigned at Date Recorded Female 03/04/2020 12:33 PM PEDIATRIC ANESTHESIOLOGIST documented as of this encounter Plan of Treatment Upcoming Encounters Date Type Specialty Care Team Description 02/09/2022 Virtual Visit Surgery Mindi Llanes PA-C [address] [facility] [address] [place] [address] (Wo rk) documented as of this encounter Visit Diagnoses Not on filedocumented in this encounter Care Teams Receiver/Laborer Relationship Specialty Start Date End Date Goran Lloyd PCP - General Family Practice 12/29/17 05/21/20 [facility] [address] [place] [address] Annette Alvarez, Nurse Practitioner Clinical Nurse 03/22/17 10/21/20 RISK OFFICER WOOL HAT FLANGER Specialist [address] [address] [place] [place] [address] Chief Juvenile Probation Officer Dietitian, Registered 05/25/18 [facility] [place] [address] [address] documented as of this encounter
--- OUTSIDE RECORDS SUMMARY | 2022-01-11 20:20 | XMS_ITS | Encounter Summary ---
:1965 Author Organization [place] Address [address] [place] [address]. [place] [address] Care Team Providers Name Role Phone Annette Alvarez SURVEYOR GEODETIC ALARM INSTALLATION TECHNICIAN Unavailable Goran Lloyd Primary Care Provider Encounter Details Date Type Department Care Team Description 03/09/2018 Travel Social History Tobacco Use Types Packs/Day Years Used Date Smoking Tobacco: Never Smokeless Tobacco: Never Alcohol Use Standard Drinks/Week Comments Yes 0 (1 standard drink = 0.6 oz pure alcoho l) rare Sex Assigned at Date Recorded Female 03/04/2020 12:33 PM GOVERNMENT RELATIONS MANAGER documented as of this encounter Plan of Treatment Upcoming Encounters Date Type Specialty Care Team Description 02/09/2022 Virtual Visit Surgery Mindi Llanes PA-C [address] [facility] [address] [place] [address] (Wo rk) documented as of this encounter Visit Diagnoses Not on filedocumented in this encounter Care Teams Boiler Control Room Operator Relationship Specialty Start Date End Date Goran Lloyd PCP - General Family Practice 12/29/17 05/21/20 [facility] [address] [place] [address] Annette Alvarez, Nurse Practitioner Clinical Nurse Specialist 10/21/20 SURVEYOR GEODETIC ALARM INSTALLATION TECHNICIAN [address] [place] [address] documented as of this encounter
--- OUTSIDE RECORDS SUMMARY | 2022-01-11 20:20 | XMS_ITS | Encounter Summary ---
:1965 Author Organization [facility] Address [address] [place] [address]. [place] [address] Care Team Providers Name Role Phone Annette Alvarez APRN PRIMARY TEACHER Unavailable [phone] Goran Lloyd Primary Care Provider Reason for Visit Reason Comments Medication Refill NOVOLOG FLEXPEN 100 UNIT/ML soln Encounter Details Date Type Department Care Team Description 05/10/2018 Refill [facility] Annette Alvarez, Medication Refill [place] RESET MERCHANDISER PRIMARY TEACHER (NOVOLOG FLEXPEN 100 [id number] Formerly [facility] [id number] [place] [address] AV UNIT/ML soln) [place] [id number] [phone] (Wo rk) Social History Tobacco Use Types Packs/Day Years Used Date Smoking Tobacco: Never Smokeless Tobacco: Never Alcohol Use Standard Drinks/Week Comments Yes 0 (1 standard drink = 0.6 oz pure alcoho l) rare Sex Assigned at Date Recorded Female 03/04/2020 12:33 PM LIVING COACH documented as of this encounter Miscellaneous Notes Telephone Encounter - Maye Souza RN - 05/12/2018 2:10 PM CST [facility] calling. Need to add max total daily dose. .kf NG COACH Telephone Encounter - Annette Alvarez APRN CNP - 05/12/2018 1:46 PM LIVING COACH Please call and have her schedule a follow up visit. Annette Alvarez NP Endocrinology NG COACH Telephone Encounter - Maye Souza RN - 05/12/2018 9:37 AM CST Images from the original note were not included. Failing below. No upcoming appt. No showed 04/19/18 appt, cancelled 03/30/18 appt. Frequently no shows or cancels. No show rate is 56%. Sent to provider. Please advise and route [facility] Maye Souza RN Short Acting Insulin Protocol Failed05/11 5:14 PM LDL on file in past 12 months HgbA1C in past 3 or 6 months NG COACH Telephone Encounter - GambleLeslie - 05/11/2018 5:13 PM CST Requested Prescriptions Pending Prescriptions Disp Refills ??? insulin aspart (NOVOLOG FLEXPEN) 100 UNIT/ML pen [Pharmacy Med Name: NovoLOG FlexPen Subcutaneous Solution Pen-injector 100 Last Written Prescription Date: 12/30/17 Last Fill Quantity: 60 ml, # refills: 3 Last office visit: 01/26/2018 with prescribing provider: Antonio Future Office Visit: UNIT/ML] 60 mL 2 Sig: INJECT 1 UNIT PER 10 GRAMS OF CARBOHYDRATES EATEN THREE TIMES DAILY BEFORE MEALS AND A CORRECTION OF 1 UNIT PER 20 POINTS ABOVE 140. TOTAL D Short Acting Insulin Protocol Failed - 05/10/2018 1:17 PM Failed - LDL on file in past 12 months No lab results found. Failed - HgbA1C in past 3 or 6 months If HgbA1C is 8 or greater, it needs to be on file within the past 3 months. If less than 8, must beon file within the past 6 months. Recent Labs Lab Test 12/09/17 A1C 8.0* Passed - Blood pressure less than 140/90 in past 6 months BP Readings from Last 3 Encounters: 01/26/18 138/70 12/29/17 130/64 06/17/17 100/60 Passed - Microalbumin on file in past [...] & Orders section of the refill encounter. NG COACH documented in this encounter Plan of Treatment Upcoming Encounters Date Type Specialty Care Team Description 02/09/2022 Virtual Visit Surgery Mindi Llanes PA-C [address] [facility] [address] [place] [address] (Wo rk) documented as of this encounter Visit Diagnoses Diagnosis Type 1 diabetes mellitus with complicati ons (H) Uncontrolled type 1 diabetes mellitus wi th stage 3 chronic kidney disease Type I (juvenile type) diabetes mellitus with renal manifestations, uncontrolled PCOS (polycystic ovarian syndrome) Polycystic ovaries documented in this encounter Care Teams Pony Cylinder Press Operator Relationship Specialty Start Date End Date Goran Lloyd PCP - General Family Practice 12/29/17 05/21/20 [facility] [address] [place] [address] Annette Alvarez, Nurse Practitioner Clinical Nurse Specialist 10/21/20 RESET MERCHANDISER PRIMARY TEACHER [address] [place] [address] documented as of this encounter
--- OUTSIDE RECORDS SUMMARY | 2022-01-11 20:20 | XMS_ITS | Encounter Summary ---
:1965 Author Organization [facility] Address [address] [facility] [place] [address] Care Team Providers Name Role Phone Annette Alvarez PERMIT TECHNICIAN FIELD SERVICES ANALYST Unavailable [phone] Goran Lloyd Primary Care Provider Jocelyn Davidson RD Unavailable Tamar Murphy PERMIT TECHNICIAN FIELD SERVICES ANALYST Unavailable Nikita Gamble Primary Care Provider Encounter Details Date Type Department Care Team Description 07/07/2018 Records - [facility] CONVERSION Provider, Historica shilpa Social History Tobacco Use Types Packs/Day Years Used Date Smoking Tobacco: Never Smokeless Tobacco: Never Alcohol Use Standard Drinks/Week Comments Yes 0 (1 standard drink = 0.6 oz pure alcoho l) rare Sex Assigned at Date Recorded Female 03/04/2020 12:33 PM METAL WINDOW FRAME MAKER COVID-19 Exposure Response Date Recorded In the last month, have you been in contact with No / Unsure 03/05/2020 11:41 AM METAL WINDOW FRAME MAKER someone who was confirmed or suspected to have Coronavirus / COVID-19? documented as of this encounter Plan of Treatment Upcoming Encounters Date Type Specialty Care Team Description 02/09/2022 Virtual Visit Surgery Mindi Llanes PA-C [address] [place] [address] (Wo rk) documented as of this encounter Visit Diagnoses Not on filedocumented in this encounter Additional Health Concerns Infection Onset Date Last Indicated Resolved Time Rule Out COVID-19 02/26/2020 02/26/2020 02/27/2020 4:3 2 PM METAL WINDOW FRAME MAKER documented as of this encounter Care Teams Coding Compliance Auditor Relationship Specialty Start Date End Date EliomariorudyGoran PCP - General Family Practice 12/29/17 05/21/20 [facility] [address] [place] [address] Nikita Gamble PCP - General Family Medicine 05/26/20 [facility] [address] [place] [address] Annette Alvarez, Nurse Practitioner Clinical Nurse 03/22/17 10/21/20 PERMIT TECHNICIAN FIELD SERVICES ANALYST Specialist [address] [place], [place] [id number] Jocelyn [address] RD Program Manager Environmental Planning Dietitian, Registered 05/25/18 [facility] [address] [place] [address] [place] [address] Tamar Murphy APRN Assigned PCP 02/08/20 1 FIELD SERVICES ANALYST [address] [place], [place] [id number] documented as of this encounter
--- OUTSIDE RECORDS SUMMARY | 2022-01-11 20:20 | XMS_ITS | Encounter Summary ---
:1965 Author Organization [facility] Address [address] [place] [address]. [place] [address] Care Team Providers Name Role Phone No Ref-Primary, Physician Primary Care Provider [phone] Reason for Visit Reason Onset Date Comments Medication Request 01/26/2017 test strips Encounter Details Date Type Department Care Team Description [facility], Medication Request (test [place] WASHERY ENGINEER FINANCIAL SALES ASSOCIATE strips) [address] [facility] [address] [place] [id number] (Wo rk) Social History Tobacco Use Types Packs/Day Years Used Date Smoking Tobacco: Never Smokeless Tobacco: Never Alcohol Use Standard Drinks/Week Comments Yes 0 (1 standard drink = 0.6 oz pure alcoho l) rare Sex Assigned at Date Recorded 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 Ashok Bella RN Telephone Encounter - Annette Alvarez, WASHERY ENGINEER FINANCIAL SALES ASSOCIATE - 01/27/2017 12:25 PM CDT Please call and let her know I sent refills to her pharmacy. Annette Alvarez NP Endocrinology Telephone Encounter - Ashok Bella, RN - 01/26/2017 3:53 PM CDT Marnie calls for refill test strips for Accu-Shantel Connect meter. Accu-Chek Shantel Plus test strips Testing 4-8 times day - continuous glucose monitor. 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, OK to leave message [phone] Routing refill request to provider for review/approval because: Drug not active on patient's medication list Ashok Bella, RN documented in this encounter Plan of Treatment Upcoming Encounters Date Type Specialty Care Team Description 02/09/2022 Virtual Visit Surgery Mindi Llanes PA-C [address] [place] [address] (Wo rk) documented as of this encounter Visit Diagnoses Diagnosis Type 1 diabetes mellitus with complicati ons (H) - Primary Uncontrolled type 1 diabetes mellitus wi th stage 3 chronic kidney disease Type I (juvenile type) diabetes mellitus with renal manifestations, uncontrolled documented in this encounter Care Teams Entry Level Project Coordinator Relationship Specialty Start Date End Date No Ref-Primary, Physician PCP - General 12/25/14 12/28/17 documented as of this encounter
--- OUTSIDE RECORDS SUMMARY | 2022-01-11 20:20 | XMS_ITS | Encounter Summary ---
:1965 Author Organization [facility] Address [address] [place] [address] 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 [address] [place] [id number] Annette Alvarez, Nurse Practitioner Clinical Nurse Specialist 10/21/20 SALES REPRESENTATIVE GAS SERVICE ASSESSMENT NURSE [address] [place] [address] documented as of this encounter
--- OUTSIDE RECORDS SUMMARY | 2022-01-11 20:20 | XMS_ITS | Encounter Summary ---
:1965 Author Organization [place] Address [facility] [place] [address] Care Team Providers Name Role Phone No Ref-Primary, Physician Primary Care Provider [phone] Reason for Visit Reason Comments Diabetes Encounter Details Date Type Department Care Team Description 02/04/2017 Office Visit [facility] Lashae Alvarez Type 1 rohan betes mellitus with complications (H) (Primary Dx); Clinic [place] KIM Monroe WELDER FITTER APPRENTICE Uncontrolled type 1 diabetes mellitus wi th stage 3 chronic kidney disease (H); [id number] [place] [address] Flatulence, eructation, and gas pain; [place], [place] PCOS (p olycystic ovarian syndrome) [id number] [phone] Social History Tobacco Use Types Packs/Day Years Used Date Smoking Tobacco: Never Smokeless Tobacco: Never Alcohol Use Standard Drinks/Week Comments Yes 0 (1 standard drink = 0.6 oz pure alcoho l) rare Sex Assigned at Date Recorded Female 03/04/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 documented as of this encounter Last Filed Vital Signs Vital Sign Reading Time Taken Comments Blood Pressure 164/64 02/04/2017 9:19 AM BUSINESS SERVICES ANALYST Pulse 76 02/04/2017 9:19 AM BUSINESS SERVICES ANALYST Temperature 36.8 ??C (98.2 ??F) 02/04/2017 9:19 AM BUSINESS SERVICES ANALYST Respiratory Rate 16 02/04/2017 9:19 AM BUSINESS SERVICES ANALYST Oxygen Saturation - - Inhaled Oxygen Concentration - - Weight 112.7 kg (248 lb 6.4 oz) 02/04/2017 9:19 AM BUSINESS SERVICES ANALYST Height - - Body Mass Index 34.16 12/25/2014 9:45 PM CDT documented in this encounter Patient Instructions Patient InstructionsLashae Alvarez APRN CNP - 02/04/2017 9:00 AM BUSINESS SERVICES ANALYST We'll recheck creatinine today. If creatinine is ok, you can start metformin and titrate up to 2 tabs once daily as tolerated. If your blood sugars decrease to low-normal or low, decrease Tresiba to about 54 or 55 units. You can decrease the Tresiba further as low as 40 units once daily, depending on your blood sugar response to adding the Metformin. After the gastric emptying study, we'll decide on the appropriate weight loss medication. If gastric emptying study is normal, my first choice would be Saxenda. I'll have you follow up one month after starting the weight loss medication, then every 3 months after that. Lashae Alvarez NP Endocrinology NESS SERVICES ANALYST documented in this encounter Progress Notes Lashae Alvarez APRN CNP - 02/13/2017 9:57 PM CST Please call - Marnie, Your kidney function test has improved but is still slightly elevated. I prefer you wait to restart the Metformin until your kidney test is back to normal. Your potassium was also slightly elevated, usually this is not a true elevation. The most common cause is trauma from the blood draw. Lets repeat the labs in one month. I'll place a lab order and you can make a lab-only appointment. I'll let you know results when available. Lashae Alvarez NP Endocrinology NESS SERVICES ANALYST Lashae Alvarez APRN CNP - 02/04/2017 9:00 AM CST Images from the original note were not included. Name: Marnie Duvall F/u for Diabetes (Last seen 11/25/2016). HPI: Marnie Duvall is a 51 year old female who presents for the evaluation/management of type 1 diabetes. 1. Type 1 DM: Originally diagnosed at the age of 88 years old. DKA: No Current Regimen: Tresiba 64 units qd, Novolog 1:10 + 1:20 >140. 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 Hypertension: Blood Pressure today: BP Readings from Last 3 Encounters: 02/04/17 164/64 11/25/16 118/67 12/26/14 120/54 . Blood pressure medications include Lisinopril 10 mg qd. 3. Hyperlipidemia: Takes no medications for lipid control. 4. Hypothyroidism. Currently treated with levothyroxine 150 mcg - Tuesday, , Tuesday, 175 mcg - Tuesday, Tuesday, Tuesday, Tuesday = average daily dose 164 mcg/day. Prevention: Flu Shot- 12/2016 Pneumovax- recommended Opthalmology-yes annually, last exam 06/2016. Dental-recommend semiannually ASA-Yes, 81 mg qd Smoking- no PMH/PSH: Past Medical History: Diagnosis Date ??? Diabetes (H) History reviewed. No pertinent surgical history. Family Hx: History reviewed. No pertinent family history. Thyroid disease: no DM2: yes, father Autoimmune: DM1, SLE, RA, Vitiligo Social Hx: Social History Social History ??? Marital status: Spouse name: N/A ??? Number of children: N/A ??? Years of education: N/A Occupational History ??? Not on file. Social History Main Topics ??? Smoking status: Never Smoker ??? Smokeless tobacco: Never Used ??? Alcohol use Yes Comment: rare ??? Drug use: No ??? Sexual activity: Not on file Other Topics Concern ??? Not on file Social History Narrative MEDICATIONS: has a current medication list which includes the following prescription(s): pantoprazole, oxycodone,insulin degludec, novolog flexpen, insulin pen needle, acetone (urine) test, blood glucose monitoring, blood glucose monitoring, blood glucose monitoring, pyridoxine hcl, calcium carb-cholecalciferol, synthroid, lisinopril, citalopram hydrobromide, topiramate, and aspirin. ROS ROS: 10 point ROS of systems including Constitutional, Eyes, Respiratory, Cardiovascular, Gastroenterology, Genitourinary, Integumentary, Muscularskeletal, Psychiatric were all negative except for pertinent positives noted in my HPI. Physical Exam VS: BP 164/64 (BP Location: Left arm, Patient Position: Chair, Cuff Size: Adult Large) Pulse 76 Temp 98.2 ??F (36.8 ??C) (Oral) Resp 16 Wt 112.7 kg (248 lb 6.4 oz) LMP 12/08/2016 ? No BMI 34.16 kg/m2 GENERAL: AXOX3, NAD, well dressed, answering questions appropriately, appears stated age. HEENT: no exophthalmos, no proptosis, EOMI, no lig lag, no retraction NECK: Supple, no thyromegaly or adenopathy CV: RRR, no rubs, gallops, no murmurs LUNGS: CTAB, no wheezes, rales, or rhonchi ABDOMEN: soft, nontender, nondistended EXTREMITIES: + edema knees to ankles bilaterally, R > L. Feet with 2+ pulses, 10-g plantar sensation 6/6 bilaterally, no open lesions NEUROLOGY: CN grossly intact, no tremors MSK: grossly intact SKIN: no rashes, no lesions LABS: A1c: Component Latest Ref Rng & Units 11/25/2016 Hemoglobin A1C 4.3 - 6.0 % 7.8 (H) BMP: !COMPREHENSIVE Latest Ref Rng & Units 11/25/2016 SODIUM 133 - 144 mmol/L 139 POTASSIUM 3.4 - 5.3 mmol/L 4.4 CHLORIDE 94 - 109 mmol/L 106 BUN 7 - 30 mg/dL 30 Creatinine 0.52 - 1.04 mg/dL 2.10 (H) Glucose 70 - 99 mg/dL 117 (H) ANION GAP 3 - 14 mmol/L 9 CALCIUM 8.5 - 10.1 mg/dL 8.9 Urine Micro: Component Latest Ref Rng & Units 11/25/2016 Creatinine Urine mg/dL 26 Albumin Urine mg/L mg/L <5 Albumin Urine mg/g Cr 0 - 25 mg/g Cr Unable to calc LFTs/Lipids: TFTs: TSH 0.56 (07/05/2016) Vitamin D: Blood Glucose Meter reviewed. All pertinent notes, labs, and images personally reviewed by me. A/P Ms.Holly Debbie Duvall is a 51 year old here for the evaluation/management of diabetes: 1. DM1 - Uncontrolled - improving. --High insulin use for type 1 diabetes indicating likely insulin resistance. --Repeat creatinine today, consider metformin depending on creatinine level. --interested in weight loss medication - Saxenda would be a good option, there are no renal adjustments needed. --c/o sluggish gastric emptying or symptoms consistent with this, abdominal bloating. BM's normal. --will obtain gastric emptying study, if normal will plan to start Saxenda. --Continue Novolog at the current dose for now. --consider insulin pump therapy. Plan to refer to diabetes ed for prepump education if interested. There is some variability among people, most [...] Lisinopril 10 mg qd. 3. Hyperlipidemia - Currently not on statin therapy, age > 40, consider starting statin therapy in the future. 4. Hypothyroidism. Currently treated with levothyroxine 164 mcg/day, recent TSH normal. Consider changing to 175 mcg/ 6.5 tabs per week = 162 mcg/day average daily dose. Other. Patients with Type 1 DM are at risk for other autoimmune diseases. He is at increase risk forthyroid disorder by 20% and increase risk for Celiac Sprue by 5-10%. Currently hypothyroid, on levo.Will screen for Celiac sprue by obtaining TTG Abs in the future. Labs ordered today: Orders Placed This Encounter Procedures ??? FOOT EXAM ??? NM Gastric Emptying ??? Basic metabolic panel ??? Hemoglobin A1c ??? Basic metabolic panel Radiology/Consults ordered today: All questions were answered. The patient indicates understanding of the above issues and agrees withthe plan set forth. Total face to face time greater than or equal to 25 minutes. Follow-up: 1-3 months depending - if she starts weight loss medication, recommend 1 month following initiation Lashae Alvarez NP Endocrinology [facility] CC: NESS SERVICES ANALYST documented in this encounter Nursing Notes Mimi Cyr CMA - 02/04/2017 9:00 AM CST Chief Complaint Patient presents with ??? Diabetes Initial BP 164/64 (BP Location: Left arm, Patient Position: Chair, Cuff Size: Adult Large) Pulse 76 Temp 98.2 ??F (36.8 ??C) (Oral) Resp 16 Wt 248 lb 6.4 oz (112.7 kg) LMP 12/08/2016 ? No BMI 34.16 kg/m2 Estimated body mass index is 34.16 kg/(m^2) as calculated from the following: Height as of 15: 5' 11.5 (1.816 m). Weight as of this encounter: 248 lb 6.4 oz (112.7 kg). Medication Reconciliation: complete NESS SERVICES ANALYST documented in this encounter Miscellaneous Notes Addendum Note - Lashae Alvarez APRN WELDER FITTER APPRENTICE - 02/13/2017 9:57 PM BUSINESS SERVICES ANALYST Addended by: LASHAE ALVAREZ on: 02/13/2017 09:57 PM Modules accepted: Orders NESS SERVICES ANALYST documented in this encounter Plan of Treatment Upcoming Encounters Date Type Specialty Care Team Description 02/09/2022 Virtual Visit Surgery Mindi Llanes PA-C [address] [facility] [address] [place], [place] [address] (Wo rk) documented as of this encounter Procedures Procedure Name Priority Date/Time Associated Diagnosis Comme nts BASIC METABOLIC Routine 02/04/2017 10:30 Type 1 diabetes Resul ts for this PANEL AM BUSINESS SERVICES ANALYST mellitus with procedure are in complications (H ) the results Uncontrolled type 1 section. diabetes mellitus with stage 3 chronic kidney disease (H) Flatulence, eructation, and gas pain documented in this encounter Results (ABNORMAL) Basic metabolic panel FUTURE 1yr (02/25/2017 12:05 PM BUSINESS SERVICES ANALYST) [facility] Method Time Signature Sodium 138 133 - 144 02/26/2017 [facility] mmol/L 11:[address] [facility] Potassium 4.9 3.4 - 5.3 02/26/2017 [facility] mmol/L 11:18 AM [facility] Chloride 106 94 - 109 02/26/2017 [facility] mmol/L 11:18 AM [facility] Carbon Dioxide 20 20 - 32 02/26/2017 [facility] mmol/L 11:18 AM [facility] Anion Gap 12 3 - 14 02/26/2017 [facility] mmol/L 11:18 AM [facility] Glucose 157 (H) 70 - 99 02/26/2017 [facility] mg/dL 11:18 AM [facility] Urea Nitrogen 25 7 - 30 02/26/2017 [facility] mg/dL 11:18 AM [facility] Creatinine 1.60 (H) 0.52 - 02/26/2017 [facility] 1.04 11:18 AM [facility] mg/dL [facility] GFR Estimate 34 (L) >60 02/26/2017 [facility] mL/min/1. 11:18 AM BUSINESS SERVICES ANALYST CLINICS [address] [facility] Comment: Non GFR Calc GFR Estimate If 41 (L) >60 mL/min/1.7m2 02/26/2017 11:18 AM [facility] Black [facility] Comment: GFR Calc Calcium 8.8 8.5 - 10.1 mg/dL 02/26/2017 11:18 AM [facility] Specimen Anatomical Collection Method Collection Time Receive d Time (Source) Location / / Volume Laterality Blood specimen 02/25/2017 12:05 7 (specimen) PM BUSINESS SERVICES ANALYST 12:06 PM BUSINESS SERVICES ANALYST Lashae Alvarez APRN WELDER FITTER APPRENTICE LAB - BLOOD ORDERABLES Performing Organization Address City/State/ZIP Code Phon e Number [facility] [address] [place] [address] (ABNORMAL) Hemoglobin A1c (02/25/2017 12:05 PM BUSINESS SERVICES ANALYST) P athologist Signature Hemoglobin A1C 7.6 (H) 4.3 - 6.0 02/25/2017 [place] % 12:21 PM [facility] Specimen Anatomical Collection Method Collection Time Receive d Time (Source) Location / / Volume Laterality Blood specimen 02/25/2017 12:05 7 (specimen) PM BUSINESS SERVICES ANALYST 12:06 PM BUSINESS SERVICES ANALYST Lashae Alvarez APRN, CNP LAB - BLOOD ORDERABLES Performing Organization Address City/State/ZIP Code Phon e Number [facility] [address] [place] [address] (ABNORMAL) Basic metabolic panel (02/04/2017 10:30 AM BUSINESS SERVICES ANALYST) Analysis Performed At Patho logist Time Signature Sodium 140 133 - 144 02/05/2017 [place] mmol/L 1:47 PM [facility] Potassium 5.6 (H) 3.4 - 5.3 02/05/2017 [place] mmol/L 1:47 PM [facility] Chloride 106 94 - 109 02/05/2017 [place] mmol/L 1:47 PM [facility] Carbon Dioxide 25 20 - 32 02/05/2017 [place] mmol/L 1:47 PM [facility] Anion Gap 9 3 - 14 02/05/2017 [place] mmol/L 1:47 PM [facility] Glucose 134 (H) 70 - 99 02/05/2017 [place] mg/dL 1:47 PM [facility] Comment: Non Fasting Urea Nitrogen 16 7 - 30 mg/dL 02/05/2017 1:47 PM [facility] Creatinine 1.40 (H) 0.52 - 1.04 02/05/2017 1:47 PM [facility] mg/dL [facility] GFR Estimate 40 (L) >60 mL/min/1.7m2 02/05/2017 1:47 PM [facility] Comment: Non GFR Calc GFR Estimate If 48 (L) >60 mL/min/1.7m2 02/05/2017 1:47 P M [facility] Black [facility] Comment: GFR Calc Calcium 9.3 8.5 - 10.1 mg/dL 02/05/2017 1:47 PM [facility] Specimen Anatomical Collection Method Collection Time Receive d Time (Source) Location / / Volume Laterality Blood specimen 02/04/2017 10:30 7 (specimen) AM BUSINESS SERVICES ANALYST 10:31 AM BUSINESS SERVICES ANALYST Lashae Alvarez APRN WELDER FITTER APPRENTICE LAB - BLOOD ORDERABLES Performing Organization Address City/State/ZIP Code Phon e Number [facility] [address] [place] [address] documented in this encounter Visit Diagnoses Diagnosis Type 1 diabetes mellitus with complicati ons (H) - Primary Uncontrolled type 1 diabetes mellitus wi th stage 3 chronic kidney disease Type I (juvenile type) diabetes mellitus with renal manifestations, uncontrolled Flatulence, eructation, and gas pain PCOS (polycystic ovarian syndrome) Polycystic ovaries documented in this encounter Care Teams Plant Wrapper Relationship Specialty Start Date End Date No Ref-Primary, Physician PCP - General 12/25/14 12/28/17 documented as of this encounter
--- OUTSIDE RECORDS SUMMARY | 2022-01-11 20:20 | XMS_ITS | Encounter Summary ---
:1965 Author Organization [place] Address [address] [place] [address] Care Team Providers Name Role Phone No Ref-Primary, Physician Primary Care Provider [phone] Annette Alvarez APRN BODY MAKE UP ARTIST Unavailable Reason for Visit Reason Onset Date Comments Prior Auth - Medication 06/27/2017 Contrave APPROVE D Encounter Details Date Type Department Care Team Description 06/27/2017 Telephone [facility] Annette Alvarez Prior Auth - Medication [facility] [place] KMI Monroe CNP (Contrave APPROVED) [address] [place] [id number] [phone] Social History Tobacco Use Types Packs/Day Years Used Date Smoking Tobacco: Never Smokeless Tobacco: Never Alcohol Use Standard Drinks/Week Comments Yes 0 (1 standard drink = 0.6 oz pure alcoho l) rare Sex Assigned at Date Recorded Female 03/04/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 Prior Authorization Approval Authorization Effective Date: 06/29/2017 Authorization Expiration Date: 10/29/2017 Medication: Contrave APPROVED Approved Dose/Quantity: 120/30 days Reference #: [id number] Insurance Company: [employer] - Expected CoPay: $25.00 Which Pharmacy is filling the prescription (Not needed for infusion/clinic administered): [facility] [address] [place] [address] [address] Pharmacy Notified: Yes Patient Notified: Yes Telephone Encounter - Lynsey Pro - 06/29/2017 9:00 AM CDT Images from the original note were not included. PA Initiation Medication: Contrave Insurance Company: [employer] - Pharmacy Filling the Rx: [facility] [id number] [facility] [address] Filling Pharmacy Filling Pharmacy Fax: Start Date: 06/29/2017 [facility] Prior Authorization Team Telephone Encounter - Karley Kessler CMA - 06/28/2017 1:48 PM CDT PA request routed to [facility]. Waiting to hear back. Karley Kessler CMA Telephone Encounter - Karley Kessler CMA - 06/28/2017 1:31 PM CDT Prior Authorization Retail Medication Request Medication/Dose: Contrave ICD code (if different than what is on RX): Previously Tried and Failed: See below Rationale: Insurance Name: [employer] Pharmacy Information (if different than what is on RX) Name: Phone: Karley Kessler CMA Telephone Encounter - Annette Alvarez APRN CNP - 06/28/2017 7:57 AM CDT Yes, please submit a PA. Dx: Morbid obesity, BMI 35 with serious comorbidities: HTN, CKD stage 3. Previously failed therapy with diet + exercise for > 6 months. Annette Alvarez NP Endocrinology Telephone Encounter - Maye Souza RN - 06/27/2017 12:38 PM CDT Annette-fax that Contrave not covered. Do you want PA or change med or was she paying for it? Please advise. Maye Souza RN APPIAH: [id number] documented in this encounter Plan of Treatment Upcoming Encounters Date Type Specialty Care Team Description 02/09/2022 Virtual Visit Surgery Mindi Llanes PA-C [address] [facility] [address] [place] [address] (Wo rk) documented as of this encounter Visit Diagnoses Not on filedocumented in this encounter Care Teams Metal Tube Cutter Relationship Specialty Start Date End Date No Ref-Primary, PCP - General 12/25/14 12/28/17 Physician Annette Alvarez, Nurse Practitioner Clinical Nurse Specialist 10/21/20 KIM RODRIGUEZ [address] [place] [address] documented as of this encounter
--- OUTSIDE RECORDS SUMMARY | 2022-01-11 20:20 | XMS_ITS | Encounter Summary ---
:1965 Author Organization [facility] Address [address] [place] [address]. [place] [address] Care Team Providers Name Role Phone Antonio Annette Mabel SOCIAL SCIENCES DEPARTMENT CHAIR EXTRUSION LINE OPERATOR Unavailable [phone] Goran Lloyd Primary Care Provider Reason for Visit Reason Comments Medication Refill Encounter Details Date Type Department Care Team Description 01/12/2018 Refill [facility] Annette Alvarez, Medication Refill [place] SOCIAL SCIENCES DEPARTMENT CHAIR EXTRUSION LINE OPERATOR [phone] [place] [address] (Wo rk) Social History Tobacco Use Types Packs/Day Years Used Date Smoking Tobacco: Never Smokeless Tobacco: Never Alcohol Use Standard Drinks/Week Comments Yes 0 (1 standard drink = 0.6 oz pure alcoho l) rare Sex Assigned at Date Recorded Female 03/04/2020 12:33 PM 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 Maye Souza RN documented in this encounter Plan of Treatment Upcoming Encounters Date Type Specialty Care Team Description 02/09/2022 Virtual Visit Surgery Mindi Llanes PA-C [address] [facility] [address] [place] [address] (Wo rk) documented as of this encounter Visit Diagnoses Diagnosis Uncontrolled type 1 diabetes with renal manifestation - Primary Type I (juvenile type) diabetes mellitus with renal manifestations, uncontrolled Type 1 diabetes mellitus with complicati ons (H) documented in this encounter Care Teams Monogram Maker Relationship Specialty Start Date End Date Goran Lloyd PCP - General Family Practice 12/29/17 05/21/[address] [address] Annette Alvarez, Nurse Practitioner Clinical Nurse Specialist 10/21/20 SOCIAL SCIENCES DEPARTMENT CHAIR EXTRUSION LINE OPERATOR [address] [place] [address] documented as of this encounter
--- OUTSIDE RECORDS SUMMARY | 2022-01-11 20:20 | XMS_ITS | Encounter Summary ---
:1965 Author Organization [place] Address [address] [facility] [place] [address] Care Team Providers Name Role Phone No Ref-Primary, Physician Primary Care Provider [phone] Annette Alvarez APRN INSPECTOR TIMERS Unavailable [phone] Reason for Visit Reason Onset Date Comments Diabetes No Show 12/22/2017 Encounter Details Date Type Department Care Team Description 12/22/2017 Office Visit [facility] GERALDO Moss SHOW (P rimary Dx) Clinic [place] MD Yina [address] [facility] [address] [address] [place] [address] [phone] Social History Tobacco Use Types Packs/Day Years Used Date Smoking Tobacco: Never Smokeless Tobacco: Never Alcohol Use Standard Drinks/Week Comments Yes 0 (1 standard drink = 0.6 oz pure alcoho l) rare Sex Assigned at Date Recorded 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 documented in this encounter Plan of Treatment Upcoming Encounters Date Type Specialty Care Team Description 02/09/2022 Virtual Visit Surgery Mindi Llanes PA-C [address] [facility] [address] [place] [address] (Wo rk) documented as of this encounter Visit Diagnoses Diagnosis NO SHOW - Primary documented in this encounter Care Teams Engagement Quality Consultant Relationship Specialty Start Date End Date No Ref-Primary, PCP - General 12/25/14 12/28/17 Physician Annette Alvarez, Nurse Practitioner Clinical Nurse Specialist 10/21/20 GAS WORKER INSPECTOR TIMERS [address] [place], [place] [id number] documented as of this encounter
--- OUTSIDE RECORDS SUMMARY | 2022-01-11 20:20 | XMS_ITS | Encounter Summary ---
:1965 Author Organization [place] Address [address] [place] [address]. [place] [address] Care Team Providers Name Role Phone Antonio Annette Monroe APRN TECHNICAL FELLOW Unavailable [phone] Goran Lloyd Primary Care Provider Reason for Visit Reason Onset Date Comments Refill Request 02/08/2018 metFORMIN (GLUCOPHAG E-XR) 500 MG 24 hr tablet (Discontinued) Encounter Details Date Type Department Care Team Description 02/08/2018 Refill [facility] Annette Alvarez, Refill Request [place] GARMENT PRESSER TECHNICAL FELLOW (metFORMIN [address] [facility] [id number] [place] [address] (GLUCOPHAGE-XR) 500 MG [place], [place] 24 hr t ablet [id number] (Discontinued)) [phone] (Wo rk) Social History Tobacco Use Types Packs/Day Years Used Date Smoking Tobacco: Never Smokeless Tobacco: Never Alcohol Use Standard Drinks/Week Comments Yes 0 (1 standard drink = 0.6 oz pure alcoho l) rare Sex Assigned at Date Recorded 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 Refill request for Metformin. This was dc'd 01/31/18 due to her creatinine. See below. Note to pharmacy. Maye Souza RN Biguanide Agents Ugjfuv17/14 11:23 AM Patient has documented LDL within the past 12 mos. Patient's CR is NOT>1.4 OR Patient's EGFR is NOT<45 within past 12 mos. Quita Castillo RN ?? 01/31/18 5:30 PM Note Clinic Action Needed: No FNA Triage Call Presenting Problem: Marnie returned phone call from VASQUEZ Orozco. Provided note to Marnie per [facility]. Marnie verbalized understanding and had no additional questions at this time. ?? Routed to: VASQUEZ Minaya ?? Quita Castillo RN/FNA ? 01/31/18 5:29 PM Marnie Duvall contacted Quita Castillo RN ? 01/31/18 8:50 AM Pam Boudreaux, VASQUEZ routed this conversation to Cr Triage Pam Boudreaux RN ?? 01/31/18 8:49 AM Note Notes Recorded by Annette Alvarez APRN TECHNICAL FELLOW on 01/30/2018 at 6:07 PM Please call Marnie, Your creatinine is elevated with eGFR of 37. ?? Metformin is not recommended if the eGFR is less than 45 - I recommend you stop the Metformin. Your TSH is below normal. ??I am decreasing your levothyroxine dose to 150 mcg per day. We can recheck thyroid levels again at your next visit. Please let me know if you have any questions. Annette Alvarez NP Endocrinology ?? LM to ?? Pam Boudreaux RN, BS Clinical Nurse Triage. ?? CAL PHYSICS PROFESSOR Telephone Encounter - Leslie Gamble - 02/08/2018 11:22 AM CST Discontinued Per Pharmacy patient has prescription from another pharmacy that are non transferable to [facility] becausethey have or have run out. metFORMIN (GLUCOPHAGE-XR) 500 MG 24 hr tablet (Discontinued) Last Written Prescription Date: 02/04/17-02/04/17 Last Fill Quantity: 90 tablet, # refills: 1 Last Office Visit: 01/26/18 Antonio Future Office visit: Next 5 appointments (look out 90 days) Mar 30, 2018 1:00 PM MEDICAL PHYSICS PROFESSOR Return Visit with Annette Alvarez APRN CNP [facility] ([facility] [address] [facility] [address] Routing refill request to provider for review/approval because: Drug not active on patient's medication list CAL PHYSICS PROFESSOR documented in this encounter Plan of Treatment Upcoming Encounters Date Type Specialty Care Team Description 02/09/2022 Virtual Visit Surgery Mindi Llanes PA-C [address] [facility] [address] [place] [address] (Wo rk) documented as of this encounter Visit Diagnoses Diagnosis Type 1 diabetes mellitus with complicati ons (H) documented in this encounter Care Teams Repossessor Relationship Specialty Start Date End Date Goran Lloyd PCP - General Family Practice 12/29/17 05/21/20 [facility] [address] [place] [address] Annette Alvarez, Nurse Practitioner Clinical Nurse Specialist 10/21/20 KIM RODRIGUEZ [address] [place] [address] documented as of this encounter
--- OUTSIDE RECORDS SUMMARY | 2022-01-11 20:20 | XMS_ITS | Encounter Summary ---
:1965 Author Organization [place] Address [address] [facility] [place] [address] Care Team Providers Name Role Phone Annette Alvarez APRN SILVERWARE ASSEMBLER Unavailable [phone] Goran Lloyd Primary Care Provider Jocelyn Davidson RD Unavailable Reason for Visit Reason Comments Diabetes Education Encounter Details Date Type Department Care Team Description 05/25/2018 [facility] Jocelyn Davidson, Diabet es Education Health/[place] Visit [address] [place] [address] [place] [phone] [place], [place] [id number] Social History Tobacco Use Types Packs/Day Years Used Date Smoking Tobacco: Never Smokeless Tobacco: Never Alcohol Use Standard Drinks/Week Comments Yes 0 (1 standard drink = 0.6 oz pure alcoho l) rare Sex Assigned at Date Recorded 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 Diabetes Self-Management Education & Support SUBJECTIVE/OBJECTIVE Diabetes education in the past 24mo: Yes Diabetes type: Type 1 Disease course: Getting harder to manage Diabetes management related comments/concerns: getting my A1C to a normal level Cultural Influences/Ethnic Background: [place] Irish Patient seen today for Insulin Pump Pre-Start: Information packet(s) provided for the following pump(s): Tandem t:slim Basal IQ, pt is currently using Dexcom G4 and is planning to upgrade to G6 dejan. Patient is knowledgeable in the following insulin pump concept(s): Carbohydrate counting, Calculating boluses, Balancing glucose and insulin Insulin Pump Start Plan: Patient would benefit from additional diabetes education visits prior to insulin pump start. Healthy Eating Cultural/orthodoxy diet restrictions?: No Meal planning: Carbohydrate counting Meals include: Lunch, Dinner, Snacks Beverages: Tea, Diet soda Has patient met with a dietitian in the past?: No Being Active Barrier to exercise: Physical limitation Monitoring Blood Glucose Meter: Accu-check Home Glucose (Sugar) Monitorin-4 times per day Blood glucose trend: Fluctuating minimally Low Glucose Range (mg/dL): <70 High Glucose Range (mg/dL): >200 Overall Range (mg/dL): 180-200 Taking Medications Diabetes Medication(s) Biguanides metFORMIN (GLUCOPHAGE-XR) 500 MG 24 hr tablet Take 2 tablets (1,000 mg) by mouth daily (with dinner) Diabetic Other GLUCAGON EMERGENCY 1 MG kit INJECT 1 MG BY INTRAMUSCULAR ROUTE NEEDED FOR LOW BLOOD SUGAR. Insulin insulin aspart (NOVOLOG FLEXPEN) 100 UNIT/ML pen INJECT 1 UNIT PER 10 GRAMS OF CARBOHYDRATES EATEN THREE TIMES DAILY BEFORE MEALS AND A CORRECTION OF 1 UNIT PER 20 POINTS ABOVE 140. TOTAL D insulin degludec (TRESIBA) 200 UNIT/ML pen Inject 60 Units Subcutaneous daily Current Treatments: Insulin Injections Dose schedule: pre-breakfast, pre-lunch, pre-dinner Given by: Patient Injection/Infusion sites: Abdomen, Arms, Thighs Problem Solving Hypoglycemia Frequency: Weekly Hypoglycemia Treatment: Glucose (tablets or gel), Juice, Candy, Other food Patient carries a carbohydrate source: Yes Medical alert: Yes Severe weather/disaster plan for diabetes management?: Yes DKA prevention plan?: Yes Sick day plan for diabetes management?: (P) Yes Reducing Risks Not addressed Healthy Coping Informal Support system:: Spouse Patient Activation Measure Survey Score: No flowsheet data found. ASSESSMENT Pt is concerned about elevated A1c and weight gain, needs better glycemic control in order to have knee surgery. Pt feels she does well with carb counting and calculating insulin doses, however she believes her BG correction needs to be stronger. Per pt comments however, low blood sugars are her biggest challenge- which then causes rebound hyperglycemia. Pt may benefit from a sensor augmented pump-discussed different pump options in detail. Plan for next appt is to review food records and currentinsulin use, will initiate process for obtaining pump and upgrading to Dexcom G6. INTERVENTION: Diabetes knowledge and skills assessment: Patient is knowledgeable in diabetes management concepts related to: Healthy Eating, Monitoring, Taking Medication, Reducing Risks and Healthy Coping Patient needs further education on the following diabetes management concepts: Taking Medication andProblem Solving Based on learning assessment above, most appropriate setting for further diabetes education would be: Individual setting Education provided today on: AADE Self-Care Behaviors: Taking Medication: action of prescribed medication Problem Solving: high blood glucose - causes, signs/symptoms, treatment and prevention, low blood glucose - causes, signs/symptoms, treatment and prevention and when to call health care provider Basics of insulin pump therapy, including what is an insulin pump, how an insulin pump functions, advantages and disadvantages to insulin pump use, and requirements for successful insulin pump therapy,were discussed. Opportunities for ongoing education and support in diabetes-self management were discussed. Pt verbalized understanding of concepts discussed and recommendations provided today. Education Materials Provided: Log Sheet (for tracking carbs, insulin, BG) Informational packets for Tandem insulin pumps PLAN Patient will need to notify [facility] re: upgrade to Dexcom G6. Will fax Patient Info/ AOB form to Tandem in order to initiate process for obtaining Basal IQ pump. Jocelyn Davidson RD, CDE Diabetes Custodial Supervisor Time Spent: 60 minutes Encounter Type: Individual Any diabetes medication dose changes were made via the CDE Protocol and Collaborative Practice Agreement with the patient's endocrinology provider. A copy of this encounter was shared with the provider. ROOM ASSOCIATE documented in this encounter Plan of Treatment Upcoming Encounters Date Type Specialty Care Team Description 02/09/2022 Virtual Visit Surgery Mindi Llanes PA-C [address] [place] [address] (Wo rk) documented as of this encounter Visit Diagnoses Diagnosis Type 1 diabetes mellitus with complicati ons (H) - Primary documented in this encounter Care Teams Gun Numberer Relationship Specialty Start Date End Date PremaGoran PCP - General Family Practice 12/29/17 05/21/[address] [address] Annette Alvarez, Nurse Practitioner Clinical Nurse 03/22/17 10/21/20 SENIOR RESEARCH CONSULTANT SILVERWARE ASSEMBLER Specialist [address] [place], [place] [phone] Jocelyn Davidson RD Awning Erector Dietitian, Registered 05/25/18 JET [place]ERRANO [facility] [place] [address] documented as of this encounter
--- OUTSIDE RECORDS SUMMARY | 2022-01-11 20:20 | XMS_ITS | Encounter Summary ---
:1965 Author Organization [facility] Address [address] [facility] [place] [address] Care Team Providers Name Role Phone No Ref-Primary, Physician Primary Care Provider [phone] Annette Alvarez APRN TRANSMISSIONS SYSTEMS OPERATOR Unavailable [phone] Reason for Visit Reason Onset Date Comments Results 03/22/2017 lab results and lega l questions Encounter Details Date Type Department Care Team Description 03/22/2017 Telephone [facility] No Ref-Primary, Results (lab results and Clinic [place] Physician legal questions) [address] [facility] [phone] [place], [place] (Fax) [phone] Social History Tobacco Use Types Packs/Day Years Used Date Smoking Tobacco: Never Smokeless Tobacco: Never Alcohol Use Standard Drinks/Week Comments Yes 0 (1 standard drink = 0.6 oz pure alcoho l) rare Sex Assigned at Date Recorded Female 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 She will call back to make an appt. Karley Kessler CMA RAL OPERATIONS AGENT Telephone Encounter - Yina Moss MD - 03/23/2017 10:51 AM GENERAL OPERATIONS AGENT Can f/u in 2-4 weeks with Annette. RAL OPERATIONS AGENT Telephone Encounter - Karley Kessler CMA - 03/22/2017 11:38 AM GENERAL OPERATIONS AGENT 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 PROGRAMS SPECIALIST, please advise in LS's absence. Karley Kessler CMA RAL OPERATIONS AGENT Telephone Encounter - Jasmyn Lee RN - 03/22/2017 9:52 AM CST The Pt called in with a few questions/concerns: 1. She wanted to know what her recent lab results are from her visit with Annette Alvarez. I did relay to her the results. Annette: the Pt would like to know when you would like labs to be repeated or when you would like to see her next. Thanks. 2. The Pt reports her has filed for divorce and has threatened to have her committed due to not taking care of herself. She wanted to know triage's advice on this. I did advise her to contacta staff assistant about this as I do not have a legal background or the answers to her questions regarding a legal commitment. Advised her it is not a simple process, its a legal process and she does have rights as an individual. She will contact a staff assistant regarding her concerns. Jasmyn Lee RN -- [facility] RAL OPERATIONS AGENT documented in this encounter Plan of Treatment Upcoming Encounters Date Type Specialty Care Team Description 02/09/2022 Virtual Visit Surgery Mindi Llanes PA-C [address] [place] [id number] (Wo rk) documented as of this encounter Visit Diagnoses Not on filedocumented in this encounter Care Teams Pr Internship Relationship Specialty Start Date End Date No Ref-Primary, PCP - General 12/25/14 12/28/17 Physician Annette Alvarez, Nurse Practitioner Clinical Nurse Specialist 10/21/20 BYPRODUCT ENGINEER TRANSMISSIONS SYSTEMS OPERATOR [address] [place] [address] documented as of this encounter
--- OUTSIDE RECORDS SUMMARY | 2022-01-11 20:20 | XMS_ITS | Encounter Summary ---
:1965 Author Organization [facility] Address [address] [facility] [place] [address] Care Team Providers Name Role Phone Annette Alvarez APRN FISHING GUIDE Unavailable Goran Lloyd Primary Care Provider Deidre Kirkland RD Unavailable Reason for Visit Reason Comments Diabetes Education Encounter Details Date Type Department Care Team Description 07/19/2018 [facility] Deidre Kirkland, Diabet es Education Health/[place] [address] [address] [place] [address] Social History Tobacco Use Types Packs/Day Years Used Date Smoking Tobacco: Never Smokeless Tobacco: Never Alcohol Use Standard Drinks/Week Comments Yes 0 (1 standard drink = 0.6 oz pure alcoho l) rare Sex Assigned at Date Recorded 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 Always carry extra insulin and a syringe or an insulin pen with rapid-acting insulin, your blood glucose meter and test strips, an extra infusion set, and extra batteries for your pump and blood glucose meter. Always carry a carbohydrate source like glucose tablets and medical identification. Current Pump Settings: BASAL RATES and times: 12 AM (midnight): 1.4 units/hour Insulin to Carbohydrate Ratio: 1 Unit of insulin will cover: CARB RATIO and times: 12 AM (midnight): 6.5 Insulin Sensitivity Factor: 1 Unit of insulin will lower your blood sugar: Corection Factor (Sensitivity) and times: 12 AM (midnight): 26 mg/dL Blood Glucose Target Range: BLOOD GLUCOSE TARGET and times: 12 AM (midnight): 120 Active Insulin Time: 4 hours [facility] for the [facility] Area: For Your Diabetes Education and Nutrition Appointments Call: [phone] For Diabetes Education or Nutrition Related Questions: E-mail: [email or web address] If you need a medication refill please contact your pharmacy. Please allow 3 business days for your refills to be completed. Instructions for emailing the Diabetes Educators If you need to communicate a non-urgent message to a Spinning Doffer via email, please send to . Please follow the following email guidelines: Subject line: Secure: your clinic name (example: Secure: [facility]) In the email please include: First name, middle initial, last name and date of . We will be in touch with you within one (1) business day. documented in this encounter Progress Notes Deidre Kirkland RD - 07/19/2018 9:30 AM CDT Diabetes Self-Management Education & Support Diabetes Self-Management Education & Support - Insulin Pump Start SUBJECTIVE/OBJECTIVE Cultural Influences/Ethnic Background: [place] Pt here with , and Tandem pump Rep. Insulin Pump Information Insulin Pump Type: Tandem t:slim Pump Serial Number: [id number] Infusion Set: Tandem Tandem Infusion Set: Auto Soft 90 Insulin Pump Start Insulin Pump Type: Tandem t:slim Pump Serial Number: [id number] Tandem Infusion Set: Auto Soft 90, 6 mm Blood sugar at beginning of pump start appointment (mg/dL): 93 mg/dL Blood sugar at end of pump start appointment (mg/dL): 146 mg/dL Last basal insulin injection (units): 32 Last bolus insulin injection (units): 12 Last basal injection given at (date): 07/18/18 Last bolus injection given at (date): 07/19/18 Last basal injection given at (time): 2130 Last bolus injection given at (time): 0500 ASSESSMENT / INTERVENTION: Patient instructed on T:Slim X2 with Basal IQ (using Dexcom G6) Basic features: button functions, charging the battery, home screen, pump unlock and sleep mode, status bar icon, menu review, audio options, display options, status screens. Pump Problem Solving: No delivery alarm, High blood sugars and DKA prevention, When to order supplies, How to order supplies, When to call a healthcare provider, When to call the pump-company help line Patient was able to start insulin pump today without difficulty?: Yes Pt did have a BG during the visit of 71 mg/dl, treated with juice and crackers. Insulin pump was programmed and verified according to the Pump Start Orders signed by Annette Alvarez NP- see telephone encounter 07/12. Basal rate: 1.4 units per hour Insulin to Carb Ratio: 1 unit covers 6.5 grams carbohydrate Insulin Sensitivity Factor: 1 unit will lower blood glucose 26 mg/dL BG Target: 120 Active Insulin Time: 4 hours Extended Bolus: on Low reservoir: 30 units Temp basal: Yes - reduced for 12 hrs by 50% Current sensor alerts: Urgent Low: 55 Low 80- repeat 30 min High 200 - repeat 2 hrs Basal IQ: ON Patient was able to start insulin pump today without difficulty. Yes Education materials provided to patient: provided by Tandem FOLLOW-UP: Telephone follow-up scheduled in 1-3 days. Post-pump start follow-up appointment scheduled on: 07/28/[address], CDE Diabetes Ore Puncher Time Spent: 60 Visit Type: Individual Any diabetes medication dose changes were made via the CDE Protocol and Collaborative Practice Agreement with the patient's endocrinology provider. A copy of this encounter was shared with the provider. documented in this encounter Miscellaneous Notes Addendum Note - Deidre Kirkland RD - 07/19/2018 9:30 AM CDT Addended by: DEIDRE KIRKLAND on: 07/21/2018 08:05 AM Modules accepted: Orders documented in this encounter Plan of Treatment Upcoming Encounters Date Type Specialty Care Team Description 02/09/2022 Virtual Visit Surgery Mindi Llanes PA-C [address] [facility] [address] [place] [address] (Wo rk) documented as of this encounter Visit Diagnoses Diagnosis Type 1 diabetes mellitus with complicati ons (H) - Primary Uncontrolled type 1 diabetes mellitus wi th stage 3 chronic kidney disease Type I (juvenile type) diabetes mellitus with renal manifestations, uncontrolled PCOS (polycystic ovarian syndrome) Polycystic ovaries 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
--- OUTSIDE RECORDS SUMMARY | 2022-01-11 20:20 | XMS_ITS | Encounter Summary ---
:1965 Author Organization [place] Address [address] [place] [address]. [place] [address] Care Team Providers Name Role Phone No Ref-Primary, Physician Primary Care Provider Annette Alvarez INDUSTRIAL GAS SERVICER HELPER SERVICE LINE COORDINATOR Unavailable Reason for Visit Reason Onset Date Comments Medication Question 03/22/2017 Encounter Details Date Type Department Care Team Description 03/22/2017 Telephone [facility] Annette Alvarez, Medication Question [place] INDUSTRIAL GAS SERVICER HELPER SERVICE LINE COORDINATOR [address] [id number] (Wo rk) Social History Tobacco Use Types Packs/Day Years Used Date Smoking Tobacco: Never Smokeless Tobacco: Never Alcohol Use Standard Drinks/Week Comments Yes 0 (1 standard drink = 0.6 oz pure alcoho l) rare Sex Assigned at Date Recorded Female 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 I am closing this encounterto avoid confusion. Please see the other message for f/u. Karley Kessler CMA UNT STRATEGIST Telephone Encounter - Olga Thompson I - 03/22/2017 9:42 AM CST Reason for call: Other Patient called regarding (reason for call): call back Additional comments: patient called to check on the status of her recent lab results from 02/25/17. Patient also states that her wants to have her committed because he doesn't think she taking care of her diabetes and she wants to know if he can have her committed. Patient would like to talk to a nurse. Phone number to reach patient: Home number on file [phone] (home) Best Time: anytime Can we leave a detailed message on this number? YES UNT STRATEGIST documented in this encounter Plan of Treatment Upcoming Encounters Date Type Specialty Care Team Description 02/09/2022 Virtual Visit Surgery Mindi Llanes PA-C [address] [facility] [address] [place] [address] (Wo rk) documented as of this encounter Visit Diagnoses Not on filedocumented in this encounter Care Teams Hot Mill Worker Relationship Specialty Start Date End Date No Ref-Primary, PCP - General 12/25/14 12/28/17 Physician Annette Alvarez, Nurse Practitioner Clinical Nurse Specialist 10/21/20 INDUSTRIAL GAS SERVICER HELPER SERVICE LINE COORDINATOR [address] [place], [place] [phone] documented as of this encounter
--- OUTSIDE RECORDS SUMMARY | 2022-01-11 20:20 | XMS_ITS | Encounter Summary ---
:1965 Author Organization [facility] Address [address] [place] [address]. [place] [address] Care Team Providers Name Role Phone No Ref-Primary, Physician Primary Care Provider Annette Alvarez APRN MANAGER FINANCIAL SERVICES Unavailable Reason for Visit Reason Comments Diabetes Encounter Details Date Type Department Care Team Description 06/17/2017 Office Visit [facility] Annette Alvarez Type 1 rohan radha mellitus with complications (H) (Primary Dx); [facility] KIM Monroe MANAGER FINANCIAL SERVICES Abnormal weight gain; [id number] [place] [address] Morbid obesity (H); [place], [place] Diabeti c polyneuropathy associated with type 1 diabetes mellitus (H); [id number] 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 [phone] Social History Tobacco Use Types Packs/Day Years Used Date Smoking Tobacco: Never Smokeless Tobacco: Never Alcohol Use Standard Drinks/Week Comments Yes 0 (1 standard drink = 0.6 oz pure alcoho l) rare Sex Assigned at Date Recorded Female 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 documented as of this encounter Last Filed Vital Signs Vital Sign Reading Time Taken Comments Blood Pressure 100/60 06/17/2017 10:57 AM CDT Pulse 88 06/17/2017 10:57 AM CDT Temperature 36.5 ??C (97.7 ??F) 06/17/2017 9:49 AM CDT Respiratory Rate - - Oxygen Saturation - - Inhaled Oxygen Concentration - - Weight 115.3 kg (254 lb 3.2 oz) 06/17/2017 9:49 AM CDT Height - - Body Mass Index 34.96 12/25/2014 9:45 PM CDT documented in this encounter Patient Instructions Patient InstructionsAnnette Alvarez APRN CNP - 06/17/2017 9:30 AM CDT Change thyroid replacement to 175 mcg - one tablet six days per week, 1/2 tablet one day per week. Complete the 24 hour urine collection to check cortisol. Start contrave for weight loss Week 1: 1 tab daily Week 2: one tab twice daily Week 3: two tabs in the morning, one tab in the evening Week 4 and thereafter: two tabs twice daily. Follow some type of meal plan that reduces your total caloric intake. Short term weight loss goal = about 2-4 lbs per month. Please see a provider about better treatment for depression. Resources: [employer] Eating well.[facility] Move [facility] - handouts Meal planning [employer] Hungry girl.[facility] Follow up in 1 month Annette Alvarez NP Endocrinology documented in this encounter Progress Notes Annette Alvarez APRN CNP - 06/17/2017 9:30 AM CDT Images from the original note were not included. Name: Marnie Duvall F/u for Diabetes (Last seen 02/04/2017). HPI: Marnie Duvall is a 52 year old female who presents for the evaluation/management of type 1 diabetes. 1. Type 1 DM: Originally diagnosed at the age of 88 years old. DKA: No Current Regimen: Tresiba 64 units qd, Novolog 1:10 + 1:20 >140. 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 Recent labs show creatinine improving to 1.2 ++ depression, sometimes stays in bed for 48 hours Complications: Diabetes Complications Description / Detail Diabetic Retinopathy No retinopathy, last eye exam 06/2016 CAD / PAD No Neuropathy Yes, currently treated with Lyrica 75 mg bid Nephropathy / Microalbuminuria Yes, ckd stage 3 Gastroparesis No Hypoglycemia Unawareness No 2. Hypertension: Blood Pressure today: BP Readings from Last 3 Encounters: 06/17/17 160/62 02/04/17 164/64 11/25/16 118/67 . Blood pressure medications include Lisinopril 10 [...] in my HPI. Physical Exam VS: BP 160/62 (BP Location: Left arm, Patient Position: Chair, Cuff Size: Adult Large) Pulse 76 Temp 97.7 ??F (36.5 ??C) (Oral) Wt 115.3 kg (254 lb 3.2 oz) ? No BMI 34.96 kg/m2 GENERAL: AXOX3, NAD, well dressed, answering questions appropriately, appears stated age. HEENT: no exophthalmos, no proptosis, EOMI, no lig lag, no retraction NECK: Supple, no thyromegaly or adenopathy CV: RRR, no rubs, gallops, no murmurs LUNGS: CTAB, no wheezes, rales, or rhonchi ABDOMEN: soft, nontender, nondistended EXTREMITIES: + edema knees to ankles bilaterally, R > L. NEUROLOGY: CN grossly intact, no tremors MSK: grossly intact SKIN: no rashes, no lesions LABS: A1c: Component Latest Ref Rng & Units 11/25/2016 06/07/2017 Hemoglobin A1C 4.3 - 6.0 % 7.8 (H) 8.0 (H) BMP: !COMPREHENSIVE Latest Ref Rng & [...] 25 mg/g Cr Unable to calc LFTs/Lipids: 06/07/2017 Total cholesterol: 148 mg/dL Triglycerides: 135 mg/dL LDL cholesterol: 57 mg/dL HDL cholesterol: 64 mg/dL TFTs: TSH 0.56 (07/05/2016) TSH 0.397 (06/12/2017) Vitamin D: Blood Glucose Meter reviewed. All pertinent notes, labs, and images personally reviewed by me. A/P Ms.Holly Debbie Duvall is a 51 year old here for the evaluation/management of diabetes: 1. DM1 - Uncontrolled --High insulin use for type 1 diabetes indicating likely insulin resistance. --Repeat creatinine today, consider metformin depending on creatinine level. --interested in weight loss medication --start Contrave and titrate up to two tabs bid as directed. --c/o sluggish gastric emptying or symptoms consistent with this, abdominal bloating. BM's normal. --Continue Novolog at the current dose for [...] 4. Hypothyroidism. Currently treated with levothyroxine 164 mcg/day. Changing to 175 mcg/ 6.5 tabs per week = 162 mcg/day average daily dose. Other. Patients with Type 1 DM are at risk for other autoimmune diseases. He is at increase risk forthyroid disorder by 20% and increase risk for Celiac Sprue by 5-10%. Currently hypothyroid, on levo.Will screen for Celiac sprue by obtaining TTG Abs in the future. Labs ordered today: No orders of the defined types were placed in this encounter. Radiology/Consults ordered today: All questions were answered. The patient indicates understanding of the above issues and agrees withthe plan set forth. Total face to face time greater than or equal to 25 minutes. Follow-up: 1 month Annette Alvarez NP Endocrinology [facility] CC: documented in this encounter Plan of Treatment Upcoming Encounters Date Type Specialty Care Team Description 02/09/2022 Virtual Visit Surgery Mindi Llanes PA-C [address] [facility] [address] [place] [address] (Wo rk) documented as of this encounter Visit Diagnoses Diagnosis Type 1 diabetes mellitus with complicati ons (H) - Primary Abnormal weight gain Morbid obesity (H) Morbid obesity Diabetic polyneuropathy associated with type 1 diabetes mellitus (H) 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 documented in this encounter Care Teams Program Manager Transportation Relationship Specialty Start Date End Date No Ref-Primary, PCP - General 12/25/14 12/28/17 Physician Annette Alvarez, Nurse Practitioner Clinical Nurse Specialist 10/21/20 KIM RODRIGUEZ [address] [place] [address] documented as of this encounter
--- OUTSIDE RECORDS SUMMARY | 2022-01-11 20:20 | XMS_ITS | Encounter Summary ---
:1965 Author Organization [facility] Address [address] [place] [address]. [place] [address] Care Team Providers Name Role Phone No Ref-Primary, Physician Primary Care Provider [phone] Annette Alvarez VEGETABLE COOK ENVELOPE MAKER Unavailable Reason for Visit Reason Onset Date Comments Refill Request 11/09/2017 levothyroxine (SYNTH ROID/LEVOTHROID) 175 MCG tablet Refill Request 11/09/2017 pregabalin (LYRICA) 75 MG capsule Encounter Details Date Type Department Care Team Description 11/09/2017 Refill [facility] Annette Alvarez, Refill Request [place] VEGETABLE COOK ENVELOPE MAKER (levothyroxine [address] [facility] [address] [facility] (SYNTHROID/LEVOTHROID) [place], [place] 175 MCG tablet); Refill [phone] Request (pregabalin [phone] (Wo rk) (LYRICA) 75 MG capsule) Social History Tobacco Use Types Packs/Day Years Used Date Smoking Tobacco: Never Smokeless Tobacco: Never Alcohol Use Standard Drinks/Week Comments Yes 0 (1 standard drink = 0.6 oz pure alcoho l) rare Sex Assigned at Date Recorded 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 Maye Souza, RN Telephone Encounter - Leslie Gamble - 11/09/2017 10:27 AM CDT Requested Prescriptions Pending Prescriptions Disp Refills ??? levothyroxine (SYNTHROID/LEVOTHROID) 175 MCG tablet Last Written Prescription Date: 06/17/17 Last Fill Quantity: 84 tablets, # refills: 1 Last office visit: No previous visit found with prescribing provider: 06/17/17 Antonio Future Office Visit: Next 5 appointments (look out 90 days) Dec 22, 2017 9:30 AM CDT Return Visit with Yian Moss [facility] [address] [phone] 84 tablet 1 Sig: Take one tablet six days each week and 1/2 tablet one day each week. Thyroid Protocol Failed 11/09/2017 10:26 AM Failed - Normal TSH on file in past 12 months No lab results found. Passed - Patient is 12 years or older Passed - Recent (12 mo) or future (30 days) visit within the authorizing provider's specialty Patient had office visit in the last 12 months or has a visit in the next 30 days with authorizing provider or within the authorizing provider's specialty. See Patient Info tab in inbasket, or Choose Columns in Meds & Orders section of the refill encounter. Passed - No active on record If patient is or has had a positive test, please check TSH. Passed - No positive test in past 12 months If patient is or has had a positive test, please check TSH. ??? pregabalin (LYRICA) 75 MG capsule Last Written Prescription Date: 06/17/17 Last Fill Quantity: 180 capsules, # refills: 1 Last office visit: No previous visit found with prescribing provider: Antonio 06/17/17 Future Office Visit: Next 5 appointments (look out 90 days) Dec 22, 2017 9:30 AM CDT Return Visit with Yina Moss MD [facility] [address] [facility] [phone] 180 capsule 1 Sig: Take 1 capsule (75 mg) by mouth 2 times daily There is no refill protocol information for this order documented in this encounter Plan of Treatment Upcoming Encounters Date Type Specialty Care Team Description 02/09/2022 Virtual Visit Surgery Mindi Llanes PA-C [address] [place] [address] (Wo rk) documented as of this encounter Visit Diagnoses Diagnosis 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 Diabetic polyneuropathy associated with type 1 diabetes mellitus (H) documented in this encounter Care Teams Canceling And Cutting Control Clerk Relationship Specialty Start Date End Date No Ref-Primary, PCP - General 12/25/14 12/28/17 Physician Annette Alvarez, Nurse Practitioner Clinical Nurse Specialist 10/21/20 VEGETABLE COOK ENVELOPE MAKER [address] [place] [address] documented as of this encounter
--- OUTSIDE RECORDS SUMMARY | 2022-01-11 20:20 | XMS_ITS | Encounter Summary ---
:1965 Author Organization [facility] Address [address] [place] [address]. [place] [address] Care Team Providers Name Role Phone Annette Alvarez APRN GARAGEMAN Unavailable [phone] Goran Lloyd Primary Care Provider Jocelyn Davidson RD Unavailable Encounter Details Date Type Department Care Team Description 06/28/2018 Medical Correspondence [facility] Scan, STATEMENT OF Health Info Mgmt Non-Provider MEDICAL NEC ESSITY [facility] TANDEM [address] [place] [id number] Social History Tobacco Use Types Packs/Day Years Used Date Smoking Tobacco: Never Smokeless Tobacco: Never Alcohol Use Standard Drinks/Week Comments Yes 0 (1 standard drink = 0.6 oz pure alcoho l) rare Sex Assigned at Date Recorded 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 documented as of this encounter Plan of Treatment Upcoming Encounters Date Type Specialty Care Team Description 02/09/2022 Virtual Visit Surgery Mindi Llanes PA-C [address] [place] [address] (Wo rk) documented as of this encounter Visit Diagnoses Not on filedocumented in this encounter Care Teams Pulp Cooker Relationship Specialty Start Date End Date Goran Lloyd PCP - General Family Practice 12/29/17 05/21/[address] [address] Annette Alvarez, Nurse Practitioner Clinical Nurse 03/22/17 10/21/20 HANDICRAFT OR HOBBY SHOP MANAGER GARAGEMAN Specialist [address] [place] [address] [employer] Architect Dietitian, Registered 05/25/18 JET SERRANO [facility] [place] [address] documented as of this encounter
--- OUTSIDE RECORDS SUMMARY | 2022-01-11 20:20 | XMS_ITS | Encounter Summary ---
:1965 Author Organization [facility] Address [facility] [place] [address] Care Team Providers Name Role Phone No Ref-Primary, Physician Primary Care Provider Annette Alvarez APRN MILL SUPERVISOR Unavailable [phone] Reason for Visit Reason Onset Date Comments Appointment 10/19/2017 Encounter Details Date Type Department Care Team Description 10/19/2017 Telephone [facility] Milady Moss, Appointment Shahana MERCADO [address] [facility] [address] [facility] [address] [place] [address] [place] [address] (Wo rk) Social History Tobacco Use Types Packs/Day Years Used Date Smoking Tobacco: Never Smokeless Tobacco: Never Alcohol Use Standard Drinks/Week Comments Yes 0 (1 standard drink = 0.6 oz pure alcoho l) rare Sex Assigned at Date Recorded 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 She missed her appointment today and wanted to reschedule at the [place] location.I have scheduled patient as return with Dr. Moss at the end of November. Would you double check if the visit type is correct and if Dr. Moss is able to see patient as a return patient instead of new? Please reach out to patient and reschedule if needs to be new. Thank you. Phone Number Patient can be reached at: Home number on file [phone] (home) Best Time: Anytime. Can we leave a detailed message on this number? YES Call taken on 10/19/2017 at 7:27 PM by Bear documented in this encounter Plan of Treatment Upcoming Encounters Date Type Specialty Care Team Description 02/09/2022 Virtual Visit Surgery Mindi Llanes PA-C [address] [facility] [address] [place] [address] (Wo rk) documented as of this encounter Visit Diagnoses Not on filedocumented in this encounter Care Teams Low Pressure Kettle Operator Relationship Specialty Start Date End Date No Ref-Primary, PCP - General 12/25/14 12/28/17 Physician Antonio Annette Mabel, Nurse Practitioner Clinical Nurse Specialist 10/21/20 MACHINE OVERHAULER MILL SUPERVISOR [address] [place] [address] documented as of this encounter
--- OUTSIDE RECORDS SUMMARY | 2022-01-11 20:20 | XMS_ITS | Encounter Summary ---
:1965 Author Organization [place] Address [address] [place] [address]. 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) Annette Alvarez [facility] KIM BRADLEY LINEBACKER CREWMEMBER [facility] [address] 103 [phone] Referral ID Status Reason Start Date Expiration Date Visits Requ ested Visits Authorized [id number] Closed 12/29/2017 12/29/2018 1 1 Reason for Visit Reason Comments Diabetes Flu Shot Encounter Details Date Type Department Care Team Description 12/29/2017 Office Visit [facility] Annette Nuñez Type 1 rohan garcia mellitus with complications (H) (Primary Dx); Clinic RosePavel Monroe APRN CNP Need for prophylactic vaccination and in oculation against influenza; [id number] Uncontrolled type 1 diabetes mellitus wi th stage 3 chronic kidney disease (H); [place], [place] PCOS (p olycystic ovarian syndrome); [id number] 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 [phone] Social History Tobacco Use Types Packs/Day Years Used Date Smoking Tobacco: Never Smokeless Tobacco: Never Alcohol Use Standard Drinks/Week Comments Yes 0 (1 standard drink = 0.6 oz pure alcoho l) rare Sex Assigned at Date Recorded 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 encounter Last Filed Vital Signs Vital Sign Reading Time Taken Comments Blood Pressure 130/64 12/29/2017 4:26 PM CDT Pulse 78 12/29/2017 4:26 PM CDT Temperature 36.9 ??C (98.4 ??F) 12/29/2017 4:26 PM CDT Respiratory Rate - - Oxygen Saturation 98% 12/29/2017 4:26 PM CDT Inhaled Oxygen Concentration - - Weight 106.1 kg (233 lb 12.8 oz) 12/29/2017 4:26 PM CDT Height - - Body Mass Index 32.15 12/25/2014 9:45 PM CDT documented in this encounter Patient Instructions Patient InstructionsAnnette Alvarez APRN CNP - 12/29/2017 4:30 PM CDT Possible insulin pump options are medtronic 670, or Omnipod, or Tandem If it is too expensive, we could update your Dexcom to a G6. Schedule a follow up with diabetes ed for prepump training. Follow up with me in 3 months. documented in this encounter Progress Notes Annette Alvarez APRN CNP - 12/31/2017 9:04 AM CDT Please mail results and comments to the patient. Marnie, There was no abnormal protein in your urine (a good thing). Here's a copy of the results for your records. Annette Alvarez NP Endocrinology Mimi Cyr CMA - 12/29/2017 4:33 PM CDT Injectable Influenza Immunization Documentation 1. Is the person to be vaccinated sick today? No 2. Does the person to be vaccinated have an allergy to a component of the vaccine? No Egg Allergy Algorithm Link 3. Has the person to be vaccinated ever had a serious reaction to influenza vaccine in the past? No 4. Has the person to be vaccinated ever had Guillain-Bains?? syndrome? No Form completed by Mimi Cyr M.A. Annette Alvarez, MERCHANDISING SPECIALIST BRADLEY LINEBACKER CREWMEMBER - 12/29/2017 4:30 PM CDT Name: Marnie Duvall F/u for Diabetes (Last seen 06/17/2017). HPI: Marnie Duvall is a 52 year old female who presents for the evaluation/management of type 1 diabetes. 1. Type 1 DM: Originally diagnosed at the age of 88 years old. DKA: No Current Regimen: Tresiba 60 units qd, Novolog 1:15 + 1:20 >130. 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 Was hospitalized. 911 low after discharge from the hospital. Needs total knee replacement. Orthopedic surgeon would like her A1c down to 7.0% before the surgery. Reports A1c done last week at another clinic was 8.0%. Complications: Diabetes Complications Description / Detail Diabetic Retinopathy No retinopathy, last eye exam 06/2016 - overdue, will schedule CAD / PAD No Neuropathy Yes, currently treated with Lyrica 75 mg bid Nephropathy / Microalbuminuria Yes, ckd stage 3 Gastroparesis No Hypoglycemia Unawareness No 2. Hypertension: Blood Pressure today: BP Readings from Last 3 Encounters: 12/29/17 130/64 06/17/17 100/60 11/10/17 164/64 . Blood pressure medications include Lisinopril 10 mg qd. 3. Hyperlipidemia: Takes no medications for lipid control. 4. Hypothyroidism. Currently treated with levothyroxine 175 mcg - 6.5 tabs/week = average daily byuc787 mcg/day. Prevention: Flu Shot- Pneumovax- recommended Opthalmology-yes annually, last exam 06/2016. [...] list which includes the following prescription(s): acetone (urine) test, aspirin, biotin, blood glucose monitoring, blood glucose monitoring, blood glucose monitoring, calcium carb-cholecalciferol, citalopram hydrobromide, glucagon, insulin degludec, insulin pen needle, levothyroxine, lisinopril, niacin, novolog flexpen, pantoprazole, pregabalin, pyridoxine hcl, sennosides, tolterodine tartrate, topiramate, and tramadol hcl. ROS ROS: 10 point ROS of systems including Constitutional, Eyes, Respiratory, Cardiovascular, Gastroenterology, Genitourinary, Integumentary, Muscularskeletal, Psychiatric were all negative except for pertinent positives noted in my HPI. Physical Exam VS: BP 130/64 (BP Location: Left arm, Patient Position: Chair, Cuff Size: Adult Large) Pulse 78 Temp 98.4 ??F (36.9 ??C) (Oral) Wt 106.1 kg (233 lb 12.8 oz) SpO2 98% ? No BMI 32.15 kg/m2 GENERAL: AXOX3, NAD, well dressed, answering [...] me. A/P Ms.Holly Debbie Duvall is a 52 year old here for the evaluation/management of diabetes: 1. DM1 - Uncontrolled --High insulin use for type 1 diabetes indicating likely insulin resistance. --Recommend insulin pump therapy. --referral to diabetes ed provided for prepump education. --Continue Novolog and Tresiba at the current dose for now. --Rx for glucagon and urine ketone strips provided today. --Request a copy of recent lab done at outside clinic There is some variability among people, most [...] future. 4. Hypothyroidism. Currently treated with levothyroxine 162 mcg/day (175 mcg 6.5 tabs/week). Labs ordered today: Orders Placed This Encounter Procedures ? ? FLU VACCINE, (RIV4) RECOMBINANT VÁSQUEZ , IM (FluBlok, egg free) [91556]- >18 YRS (FMG [id number] YRS) ??? Vaccine Administration, Initial [90416] ??? Albumin Random Urine Quantitative with Creat Ratio ??? MAP COMPILER REFERRAL Radiology/Consults ordered today: All questions were answered. The patient indicates understanding of the above issues and agrees withthe plan set forth. Total face to face time greater than or equal to 25 minutes. Follow-up: 3 month Annette Alvarez NP Endocrinology [facility] CC: documented in this encounter Plan of Treatment Upcoming Encounters Date Type Specialty Care Team Description 02/09/2022 Virtual Visit Surgery Mindi Llanes PA-C [address] [place] [address] (Wo rk) documented as of this encounter Procedures Procedure Name Priority Date/Time Associated Diagnosis Comme nts ALBUMIN RANDOM URINE Routine 12/29/2017 5:43 Type 1 diabetes R esults for this QUANTITATIVE PM CDT mellitus with procedure are in complications (H) the result s section. documented in this encounter Results Albumin Random Urine Quantitative with Creat Ratio (12/29/2017 5:43 PM CDT) [facility] Method Time Signature Creatinine 56 mg/dL 12/30/2017 [place] Urine 4:37 PM CDT CLINICS [facility] Albumin Urine <5 mg/L 12/30/2017 [place] mg/L 4:37 PM CDT CLINICS [facility] Albumin Urine Unable to 0 - 25 12/30/2017 [place] mg/g Cr calculate due mg/g Cr 4:37 PM CDT CLINICS to low value [facility] Specimen Anatomical Collection Method Collection Time Receive d Time (Source) Location / / Volume Laterality Urine specimen 12/29/2017 5:43 PM 018 5:44 (specimen) CDT PM CDT Annette Alvarez MERCHANDISING SPECIALIST BRADLEY LINEBACKER CREWMEMBER LAB - URINE ORDERABLES Performing Organization Address City/State/ZIP Code Phon e Number [facility] [address] [place] [address] documented in this encounter Visit Diagnoses Diagnosis Type 1 diabetes mellitus with complicati ons (H) - Primary Need for prophylactic vaccination and in oculation against influenza Uncontrolled type 1 diabetes mellitus wi th stage 3 chronic kidney disease Type I (juvenile type) diabetes mellitus with renal manifestations, uncontrolled PCOS (polycystic ovarian syndrome) Polycystic ovaries 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 documented in this encounter Care Teams Saw Edge Fuser Circular Relationship Specialty Start Date End Date Goran Lloyd PCP - General Family Practice 12/29/17 05/21/20 [facility] [address] [place] [address] Annette Alvarez, Nurse Practitioner Clinical Nurse Specialist 10/21/20 MERCHANDISING SPECIALIST BRADLEY LINEBACKER CREWMEMBER [id number] [place] [address] documented as of this encounter
--- OUTSIDE RECORDS SUMMARY | 2022-01-11 20:20 | XMS_ITS | Encounter Summary ---
:1965 Author Organization [place] Address [address] [place] [address]. [place] [address] Care Team Providers Name Role Phone No Ref-Primary, Physician Primary Care Provider Annette Alvarez INSIDE SALES ADVERTISING EXECUTIVE FARM EQUIPMENT ENGINE MECHANIC Unavailable Reason for Visit Reason Onset Date Comments Refill Request 08/31/2017 naltrexone-bupropion (CONTRAVE) 8-90 MG per 12 hr tablet Encounter Details Date Type Department Care Team Description 08/31/2017 Refill [facility] Annette Alvarez, Refill Request [place] INSIDE SALES ADVERTISING EXECUTIVE FARM EQUIPMENT ENGINE MECHANIC (naltrexone-bupropion [address] [address] [facility] (CONTRAVE) 8-90 MG per [place], [place] 12 hr t ablet) [id number] [id number] (Wo rk) Social History Tobacco Use Types Packs/Day Years Used Date Smoking Tobacco: Never Smokeless Tobacco: Never Alcohol Use Standard Drinks/Week Comments Yes 0 (1 standard drink = 0.6 oz pure alcoho l) rare Sex Assigned at Date Recorded 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 She would like to discuss different medication options, I advised her to schedule a follow up visit. Declined to schedule at this time. Jasmyn Lee, RN -- [facility] Telephone Encounter - Lisandro Lena - 09/05/2017 10:06 AM CDT Requested Prescriptions Pending Prescriptions Disp Refills ??? naltrexone-bupropion (CONTRAVE) 8-90 MG per 12 hr tablet 120 tablet 2 Sig: Take 2 tablets by mouth 2 times daily There is no refill protocol information for this order Last Written Prescription Date: 06/17/17 Last Fill Quantity: 120, # refills: 2 Last Office Visit: 06/17/17 Endo Future Office Visit: documented in this encounter Plan of Treatment Upcoming Encounters Date Type Specialty Care Team Description 02/09/2022 Virtual Visit Surgery Mindi Llanes PA-C [address] [facility] [address] [place] [address] (Wo rk) documented as of this encounter Visit Diagnoses Diagnosis Morbid obesity (H) Morbid obesity documented in this encounter Care Teams Jailer Relationship Specialty Start Date End Date No Ref-Primary, PCP - General 12/25/14 12/28/17 Physician Annette Alvarez, Nurse Practitioner Clinical Nurse Specialist 10/21/20 INSIDE SALES ADVERTISING EXECUTIVE FARM EQUIPMENT ENGINE MECHANIC [address] [place] [address] documented as of this encounter
--- OUTSIDE RECORDS SUMMARY | 2022-01-11 20:20 | XMS_ITS | Encounter Summary ---
:1965 Author Organization [place] Address [address] [place] [address]. [place] [address] Care Team Providers Name Role Phone Annette Alvarezmamadou ALVAREZ CHANNELING MACHINE OPERATOR Unavailable [phone] Goran Lloyd Primary Care Provider Reason for Visit Reason Onset Date Comments Medication Refill 03/25/2018 [facility] 1 MG kit Encounter Details Date Type Department Care Team Description 03/24/2018 Refill [facility] AlvarezAnnette, Medication Refill Ashley QUARRYMAN CHANNELING MACHINE OPERATOR ([facility] 1 MG [address] [facility] [address] [facility] kit) [place] [address] [phone] (Wo rk) Social History Tobacco Use Types Packs/Day Years Used Date Smoking Tobacco: Never Smokeless Tobacco: Never Alcohol Use Standard Drinks/Week Comments Yes 0 (1 standard drink = 0.6 oz pure alcoho l) rare Sex Assigned at Date Recorded 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 Requested Prescriptions Pending Prescriptions Disp Refills ??? [facility] 1 MG kit [Pharmacy Med Name: Glucagon Emergency Injection Kit 1 MG] 0 Sig: INJECT 1 MG BY INTRAMUSCULAR ROUTE NEEDED FOR LOW BLOOD SUGAR. There is no refill protocol information for this order Last Written Prescription Date: 12/30/17 END:12/30/17 Last Fill Quantity: 2 each, # refills: 0 Last Office Visit: 01/26/2018 Antonio Return in about 3 months (around 04/28/2018). Future Office Visit: Next 5 appointments (look out 90 days) Mar 30, 2018 1:00 PM PERFUME AND TOILET WATER MAKER Return Visit with Annette Alvarez APRN CNP [facility] [address] [facility] [id number] UME AND TOILET WATER MAKER documented in this encounter Plan of Treatment Upcoming Encounters Date Type Specialty Care Team Description 02/09/2022 Virtual Visit Surgery Mindi Llanes PA-C [address] [facility] [address] [place] [address] (Wo rk) documented as of this encounter Visit Diagnoses Diagnosis Type 1 diabetes mellitus with complicati ons (H) Uncontrolled type 1 diabetes mellitus wi th stage 3 chronic kidney disease Type I (juvenile type) diabetes mellitus with renal manifestations, uncontrolled PCOS (polycystic ovarian syndrome) Polycystic ovaries 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 documented in this encounter Care Teams Glacing Machine Tender Relationship Specialty Start Date End Date Goran Lloyd PCP - General Family Practice 12/29/17 05/21/20 [facility] [address] [place] [address] Annette Alvarez, Nurse Practitioner Clinical Nurse Specialist 10/21/20 KIM RODRIGUEZ [address] [place] [address] documented as of this encounter
--- OUTSIDE RECORDS SUMMARY | 2022-01-11 20:20 | XMS_ITS | Encounter Summary ---
:1965 Author Organization [place] Address [facility] [place] [address] Care Team Providers Name Role Phone No Ref-Primary, Physician Primary Care Provider [phone] Encounter Details Date Type Department Care Team Description 02/25/2017 [facility] Only [facility] Typ e 1 diabetes mellitus with complications (H); [facility] Uncontrolled type 1 diabetes mellitus with stage 3 chronic kidney disease (H); [address] [facility] Flatulence, eructation, and gas pain; [place], [place] PCOS (polyc ystic ovarian syndrome) [address] Social History Tobacco Use Types Packs/Day Years Used Date Smoking Tobacco: Never Smokeless Tobacco: Never Alcohol Use Standard Drinks/Week Comments Yes 0 (1 standard drink = 0.6 oz pure alcoho l) rare Sex Assigned at Date Recorded 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 Marnie, Your kidney test is still elevated but the potassium is now normal. Your A1c is better, decreased from 7.8%. Here's a copy of the results for your records. Annette Alvarez NP Endocrinology L SPRAYER PROTECTIVE COATING documented in this encounter Plan of Treatment Upcoming Encounters Date Type Specialty Care Team Description 02/09/2022 Virtual Visit Surgery Mindi Llanes, PRETTY [address] [place] [address] (Wo rk) documented as of this encounter Procedures Procedure Name Priority Date/Time Associated Diagnosis Comme nts HEMOGLOBIN A1C Routine 02/25/2017 12:05 Type 1 diabetes Result s for this PM METAL SPRAYER PROTECTIVE COATING mellitus with procedure are in complications (H ) the results Uncontrolled type 1 section. diabetes mellitus with stage 3 chronic kidney disease (H) Flatulence, eructation, and gas pain BASIC METABOLIC Routine 02/25/2017 12:05 Type 1 diabetes Resul ts for this PANEL PM METAL SPRAYER PROTECTIVE COATING mellitus with procedure are in complications (H ) the results Uncontrolled type 1 section. diabetes mellitus with stage 3 chronic kidney disease (H) Flatulence, eructation, and gas pain PCOS (polycystic ovarian syndrome) documented in this encounter Results (ABNORMAL) Basic metabolic panel FUTURE 1yr (02/25/2017 12:05 PM METAL SPRAYER PROTECTIVE COATING) [facility] Method Time Signature Sodium 138 133 - 144 02/26/2017 [facility] mmol/L 11:18 AM [facility] Potassium 4.9 3.4 - 5.3 02/26/2017 [facility] mmol/L 11:18 AM [facility] Chloride 106 94 - 109 02/26/2017 [facility] mmol/L 11:18 AM [facility] Carbon Dioxide 20 20 - 32 02/26/2017 [facility] mmol/L 11:18 AM [facility] Anion Gap 12 3 - 14 02/26/2017 [facility] mmol/L 11:18 AM [facility] Glucose 157 (H) 70 - 99 02/26/2017 [facility] mg/dL 11:18 AM [facility] Urea Nitrogen 25 7 - 30 02/26/2017 [facility] mg/dL 11:18 AM [facility] Creatinine 1.60 (H) 0.52 - 02/26/2017 [facility] 1.04 11:18 AM [facility] mg/dL [facility] GFR Estimate 34 (L) >60 02/26/2017 [facility] mL/min/1. 11:18 AM [facility] 7m2 [facility] Comment: Non GFR Calc GFR Estimate If 41 (L) >60 mL/min/1.7m2 02/26/2017 11:18 AM [facility] Comment: GFR Calc Calcium 8.8 8.5 - 10.1 mg/dL 02/26/2017 11:18 AM [facility] Specimen Anatomical Collection Method Collection Time Receive d Time (Source) Location / / Volume Laterality Blood specimen 02/25/2017 12:05 7 (specimen) PM METAL SPRAYER PROTECTIVE COATING 12:06 PM METAL SPRAYER PROTECTIVE COATING Annette Alvarez APRN, CNP LAB - BLOOD ORDERABLES Performing Organization Address City/State/ZIP Code Phon e Number [facility] [address] [place] [address] (ABNORMAL) Hemoglobin A1c (02/25/2017 12:05 PM METAL SPRAYER PROTECTIVE COATING) P athologist Signature Hemoglobin A1C 7.6 (H) 4.3 - 6.0 02/25/2017 [facility] 12:21 PM [facility] Specimen Anatomical Collection Method Collection Time Receive d Time (Source) Location / / Volume Laterality Blood specimen 02/25/2017 12:05 7 (specimen) PM METAL SPRAYER PROTECTIVE COATING 12:06 PM METAL SPRAYER PROTECTIVE COATING Annette Alvarez APRN, CNP LAB - BLOOD ORDERABLES Performing Organization Address City/State/ZIP Code Phon e Number [facility] [address] [place] [address] documented in this encounter Visit Diagnoses Diagnosis Type 1 diabetes mellitus with complicati ons (H) Uncontrolled type 1 diabetes mellitus wi th stage 3 chronic kidney disease Type I (juvenile type) diabetes mellitus with renal manifestations, uncontrolled Flatulence, eructation, and gas pain PCOS (polycystic ovarian syndrome) Polycystic ovaries documented in this encounter Care Teams Briquetter Operator Relationship Specialty Start Date End Date No Ref-Primary, Physician PCP - General 12/25/14 12/28/17 documented as of this encounter
--- OUTSIDE RECORDS SUMMARY | 2022-01-11 20:20 | XMS_ITS | Encounter Summary ---
:1965 Author Organization [place] Address [address] [facility] [place] [address] Care Team Providers Name Role Phone Annette Alvarezmamadou ALVAREZ LATHE SANDER Unavailable [phone] Goran Lloyd Primary Care Provider Jocelyn Davidson RD Unavailable Reason for Visit Reason Onset Date Comments Forms 06/27/2018 [facility] t-slim reques t Encounter Details Date Type Department Care Team Description 06/27/2018 Telephone [facility] Annette Alvarez Forms ([facility] t-slim Clinic [place] KIM Monroe LATHE SANDER request) [address] [address] [phone] Social History Tobacco Use Types Packs/Day Years Used Date Smoking Tobacco: Never Smokeless Tobacco: Never Alcohol Use Standard Drinks/Week Comments Yes 0 (1 standard drink = 0.6 oz pure alcoho l) rare Sex Assigned at Date Recorded 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 Patient notified via MyChart. Mimi Cyr CMA on 06/29/2018 at 11:10AM Telephone Encounter - Annette Alvarez APRN CNP - 06/28/2018 1:34 PM CDT Form completed and signed. Annette Alvarez NP Endocrinology Telephone Encounter - Mimi Cyr CMA - 06/27/2018 10:04 AM CDT Received Statement of Medical Necessity and Prescription Order form from [facility] for a T-slim insulinpump. Dx: E10.65 [facility] Diabetes Care Team ph# [phone] opt.2 . Fax completed form and recent diabetic chart notes that state patient is actively using or has been recommended the use of an insulin pump and completed a diabetes education program (REQUIRED) to #[phone]. Form on Annette Alvarez's desk. Mimi Cyr M.A. documented in this encounter Plan of Treatment Upcoming Encounters Date Type Specialty Care Team Description 02/09/2022 Virtual Visit Surgery Mindi Llanes PA-C [address] [facility] [address] [place] [address] (Wo rk) documented as of this encounter Visit Diagnoses Not on filedocumented in this encounter Care Teams Top Distribution Executive Relationship Specialty Start Date End Date Goran Lloyd PCP - General Family Practice 12/29/17 05/21/20 [facility] [address] [place] [address] Annette Alvarez, Nurse Practitioner Clinical Nurse 03/22/17 10/21/20 ASSOCIATE JAVA DEVELOPER LATHE SANDER Specialist [address] [place] [address] Pulmonary Function Technician Dietitian, Registered 05/25/18 JET MAGGIE [facility] [place], [place] [id number] documented as of this encounter
--- OUTSIDE RECORDS SUMMARY | 2022-01-11 20:20 | XMS_ITS | Encounter Summary ---
:1965 Author Organization [place] Address [address] [facility] [place] [address] Care Team Providers Name Role Phone No Ref-Primary, Physician Primary Care Provider [phone] Annette Alvarez APRN INSTALLATION & MAINTENANCE EXECUTIVE Unavailable [phone] Goran Lloyd Primary Care Provider Jocelyn Davidson RD Unavailable Tamar Murphy MOLD FORMS BUILDER INSTALLATION & MAINTENANCE EXECUTIVE Unavailable Nikita Gamble Primary Care Provider Reason for Visit Reason Comments Consult Infectious Disease Encounter Details Date Type Department Care Team Description 10/13/2017 [facility] (Infectious [facility] Fredy Pavon MD Disease) Patient Access [address] [address] [place], [place] [phone] [address] Social History Tobacco Use Types Packs/Day Years Used Date Smoking Tobacco: Never Smokeless Tobacco: Never Alcohol Use Standard Drinks/Week Comments Yes 0 (1 standard drink = 0.6 oz pure alcoho l) rare Sex Assigned at Date Recorded Female 03/04/2020 12:33 PM FIELD 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 documented as of this encounter Plan of Treatment Upcoming Encounters Date Type Specialty Care Team Description 02/09/2022 Virtual Visit Surgery Mindi Llanes PA-C [address] [place] [address] (Wo rk) documented as of this encounter Visit Diagnoses Not on filedocumented in this encounter Additional Health Concerns Infection Onset Date Last Indicated Resolved Time Rule Out COVID-19 02/26/2020 02/26/2020 02/27/2020 4:3 2 PM FIELD RESEARCH ASSISTANT documented as of this encounter Care Teams Tax Associate Attorney Relationship Specialty Start Date End Date No Ref-Primary, PCP - General 12/25/14 12/28/17 Physician Goran Lloyd PCP - General Family Practice 12/29/17 05/21/20 [facility] [address] [place] [address] Nikita Gamble PCP - General Family Medicine 05/26/20 [facility] [address] [place] [address] Annette Alvarez, Nurse Practitioner Clinical Nurse 03/22/17 10/21/20 MOLD FORMS BUILDER INSTALLATION & MAINTENANCE EXECUTIVE Specialist [address] [place], [place] [phone] Jocelyn Davidson RD Smoke Jumper Supervisor Dietitian, Registered 05/25/18 [facility] [place] [address] Tamar Murphy APRN Assigned PCP 02/08/20 1 INSTALLATION & MAINTENANCE EXECUTIVE [address] [place] [address] documented as of this encounter
--- OUTSIDE RECORDS SUMMARY | 2022-01-11 20:20 | XMS_ITS | Encounter Summary ---
:1965 Author Organization [place] Address [address] [facility] [place] [address] Care Team Providers Name Role Phone Annette Alvarez APRN, CNP Unavailable [phone] Goran Lloyd Primary Care Provider Jocelyn Davidson RD Unavailable Reason for Visit Reason Onset Date Comments Diabetes Education 07/10/2018 Pump orders Encounter Details Date Type Department Care Team Description 07/10/[address] [facility] Jocelyn Davidson RD Diabetes Education Clinic [facility] (Pump orders) [address] [place] [address] [address] [place] [address] Social History Tobacco Use Types Packs/Day Years Used Date Smoking Tobacco: Never Smokeless Tobacco: Never Alcohol Use Standard Drinks/Week Comments Yes 0 (1 standard drink = 0.6 oz pure alcoho l) rare Sex Assigned at Date Recorded Female 03/04/2020 12:33 PM DEVELOPMENT INTERN documented as of this encounter Miscellaneous Notes Telephone Encounter - Annette Alvarez APRN CNP - 07/12/2018 2:32 PM CDT I agree with the insulin pump initiation settings as previously discussed with MAGDA Snowden, and as documented in this encounter. Annette Alvarez NP Endocrinology Telephone Encounter - Jocelyn Davidson RD - 07/10/2018 10:41 AM CDT Pump start orders: Formula for insulin pump settings: Pre-Pump TDD of 86 units insulin (66 units Tresiba + avg 20 units/d Novolog) - 20% = 68 Units/TDD Basal rate is 50% of 68 insulin pump TDD = 34 ?? 24 hours = 1.4 units/hr I:C ratio: rule of 450 ?? 68 insulin pump TDD = 6.5 grams/unit Insulin sensitivity factor: 1800 ?? 68 insulin pump TDD = 26 mg/dl/ unit Patient Initial Pump settings: Tandem: T:Slim Basal IQ BASAL RATES and times: 12 AM (midnight): 1.4 units/hour CARB RATIO and times: 12 AM (midnight): 6.5 Corection Factor (Sensitivity) and times: 12 AM (midnight): 26 mg/dL Active Insulin Time: 4 hours BLOOD GLUCOSE TARGET: 120 Max basal: 2.0 Max bolus: 20 Temp basal: percent Low reservoir: 30 units Patient is currently using Dexcom G6. Tandem pump training tentatively scheduled for July 19 at 9:30. Patient requesting to hold off on Rx for insulin vials, as she has several Novolog pens that shewould like to use up. Additional notes: Adjustments to current basal insulin (Tresiba) prior to pump start? Yes- reduce Tresiba by 50% night before pump start, use Novolog as usual. Addition order needed: Insulin vials No Test strips No Glucagon No Ketone test strips No Syringes No Please let me know if you agree with above initiation settings or indicate alternative plan. Jocelyn Davidson RD, CDE Diabetes Credit Verifier documented in this encounter Plan of Treatment Upcoming Encounters Date Type Specialty Care Team Description 02/09/2022 Virtual Visit Surgery Mindi Llanes PA-C [address] [place] [address] (Wo rk) documented as of this encounter Visit Diagnoses Not on filedocumented in this encounter Care Teams Machine Hand Relationship Specialty Start Date End Date Goran Lloyd PCP - General Family Practice 12/29/17 05/21/[address] [address] Annette Alvarez, Nurse Practitioner Clinical Nurse 03/22/17 10/21/20 TUBE MACHINE OPERATOR HELPER BACTERIOLOGIST PHARMACEUTICAL Specialist [address] [place] [address] Educational Therapist Dietitian, Registered 05/25/18 [facility] [place] [phone] documented as of this encounter
--- OUTSIDE RECORDS SUMMARY | 2022-01-11 20:20 | XMS_ITS | Encounter Summary ---
:1965 Author Organization [place] Address [address] [facility] [place] [address] Care Team Providers Name Role Phone No Ref-Primary, Physician Primary Care Provider [phone] Annette Alvarez APRN GREIGE MENDER Unavailable [phone] Goran Lloyd Primary Care Provider Jocelyn Davidson RD Unavailable Tamar Murphy AUTOMATIC BUFFER GREIGE MENDER Unavailable Nikita Gamble Primary Care Provider Reason for Visit Reason Comments Forms return to work Encounter Details Date Type Department Care Team Description 11/02/2017 [facility] Vu Isaacs, Fo dayan (return to [facility] Kim MERCADO work) [address] [place] [address] [address] [place] [address] [place], [place] [phone] [facility] Social History Tobacco Use Types Packs/Day Years Used Date Smoking Tobacco: Never Smokeless Tobacco: Never Alcohol Use Standard Drinks/Week Comments Yes 0 (1 standard drink = 0.6 oz pure alcoho l) rare Sex Assigned at Date Recorded Female 03/04/2020 12:33 PM 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 documented as of this encounter Plan of Treatment Upcoming Encounters Date Type Specialty Care Team Description 02/09/2022 Virtual Visit Surgery Mindi Llanes PA-C [address] [place] [address] (Wo rk) documented as of this encounter Visit Diagnoses Not on filedocumented in this encounter Additional Health Concerns Infection Onset Date Last Indicated Resolved Time Rule Out COVID-19 02/26/2020 02/26/2020 02/27/2020 4:3 2 PM NIGHT TIME BABYSITTER documented as of this encounter Care Teams Rivet Hole Machine Operator Relationship Specialty Start Date End Date No Ref-Primary, PCP - General 12/25/14 12/28/17 Physician Goran Lloyd PCP - General Family Practice 12/29/17 05/21/20 [facility] [address] [place] [address] Nikita Gamble PCP - General [facility] Medicine 05/26/20 [facility] [address] [place] [address] Annette Alvarez, Nurse Practitioner Clinical Nurse 03/22/17 10/21/20 AUTOMATIC BUFFER GREIGE MENDER Specialist [address] [place] [address] Loom Inspector Dietitian, Registered 05/25/18 [facility] [place] [address] Tamar Murphy APRN Assigned PCP 02/08/20 1 GREIGE MEND[address] [address] [place], [place] [phone] documented as of this encounter
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
--- OUTSIDE RECORDS SUMMARY | 2022-01-11 20:20 | XMS_ITS | Encounter Summary ---
:1965 Author Organization [place] Address [address] [place] [address]. [place] [address] Care Team Providers Name Role Phone Annette Alvarez KIM RODRIGUEZ Unavailable [phone] Goran Lloyd Primary Care Provider Reason for Visit Reason Onset Date Comments Patient Request for Note/Letter 01/04/2018 patient requesting letter to DM Encounter Details Date Type Department Care Team Description 01/04/2018 Telephone [facility] Annette Alvarez Patient Re [facility] for [facility] [place] KIM Monroe CNP Note/Letter (patient [id number] [facility] [id number] [place] [address] requesting letter to [facility]) [phone] Social History Tobacco Use Types Packs/Day Years Used Date Smoking Tobacco: Never Smokeless Tobacco: Never Alcohol Use Standard Drinks/Week Comments Yes 0 (1 standard drink = 0.6 oz pure alcoho l) rare Sex Assigned at Date Recorded 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 All recommendations given. Patient confirms that she will be able to attend Telephone Encounter - Goran Madera - 01/10/2018 3:57 PM CDT Returned call to Mimi. Call back when back in office. Telephone Encounter - Mimi Cyr CMA - 01/06/2018 3:42 PM CDT LMOM for patient to call back to the [facility]. Need to inform of all recommendations as below. Tentatively scheduled clinic appointment with Annette Antonio for 01/26/18 at 11:30 a.m. Will need to clarify if this works for the patient. Annette is currently booked out to March 2018. Mimi Cyr M.A. Telephone Encounter - Annette Alvarez APRN CNP - 01/06/2018 12:10 PM CDT We have not previously discussed this issue. I need to document via Dexcom/meter download for 30+ days that she's not having significant or frequent low blood sugars and the circumstances surrounding the incident. She would need a follow up appointment before I could write a letter as everything needsto be documented. I know she is scheduled with diabetes ed for prepump education which is very good. Either way, there is not way to resolve this in one week. Also, let her know that in the past, the DMV has refused to reinstate drivers license even with a letter from us - it is still the DMVs call. Thanks, Annette Alvarez NP Endocrinology Telephone Encounter - Mimi Cyr CMA - 01/05/2018 5:23 PM CDT Spoke with patient. Patient states in September 2016 she did have a hypoglycemic event while driving. 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 Her blood sugar dropped while driving home. She was driving [place] and 911 was called by several people. She eventually ended up driving thewrong way on a one way. Police were able to get her to ice puller and determined her BG was in the 20's and were able to treat her. Patient saw her primary outside of [facility] so there is no documentation in her [facility] chart. The letter written by her primary has not been accepted by the [place] Department of Public Safety. Patient was pulled over yesterday and was told by the officer that her license is under suspension. Patient has until 01/13/18 to submit a letter from her doctor stating that her diabetes is under goodcontrol, that she is safe to drive and is currently under the care of a physician/provider for her diabetes. The letter needs to be on [facility] Letterhead and needs to have the providers name, signature and contact information included. Please advise. Mimi Cyr M.A. Telephone Encounter - Annette Alvarez APRN CNP - 01/05/2018 7:13 AM CDT Please call patient. There is a standard DMV form that is completed each year, no letter is needed unless she had a hypoglycemic incident requiring 911 assistance and/or driving incident due to hypoglycemia. If that is the case, she needs an appointment. Otherwise, she needs to fill out the st[place] form ( can be found online or we have copies) and then drop it off at the clinic so I can fill out myportion and sign. Annette Alvarez NP Endocrinology Telephone Encounter - Andreina Falcon - 01/04/2018 4:15 PM CDT Patient calling for Annette Alvarez. She is requesting a letter be written to DMV stating that her diabetes is under control and that she is able to drive. Please call patient [phone]. Andreina Falcon Deputy Sheriff Bailiff documented in this encounter Plan of Treatment Upcoming Encounters Date Type Specialty Care Team Description 02/09/2022 Virtual Visit Surgery Mindi Llanes PA-C [address] [facility] [address] [place] [address] (Wo rk) documented as of this encounter Visit Diagnoses Not on filedocumented in this encounter Care Teams Chief Meteorologist Relationship Specialty Start Date End Date Goran Lloyd PCP - General Family Practice 12/29/17 05/21/[address] [address] Annette Alvarez, Nurse Practitioner Clinical Nurse Specialist 10/21/20 MOLD MACHINE OPERATOR BROADLOOM WEAVER [address] [place] [address] documented as of this encounter
--- OUTSIDE RECORDS SUMMARY | 2022-01-11 20:20 | XMS_ITS | Encounter Summary ---
:1965 Author Organization [place] Address [address] [facility] [place] [address] Care Team Providers Name Role Phone Annette Alvarez KIM TURBO ELECTRIC OPERATOR Unavailable [phone] Goran Lloyd Primary Care Provider Jocelyn Davidson RD Unavailable Encounter Details Date Type Department Care Team Description 06/12/2018 Orders Only [facility] Annette Alvarez Type 1 rohan betes mellitus with complications (H) (Primary Dx); Clinic [place] KIM Monroe TURBO ELECTRIC OPERATOR Abdominal bloating [address] [place] [id number] [phone] Social History Tobacco Use Types Packs/Day Years Used Date Smoking Tobacco: Never Smokeless Tobacco: Never Alcohol Use Standard Drinks/Week Comments Yes 0 (1 standard drink = 0.6 oz pure alcoho l) rare Sex Assigned at Date Recorded 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 of 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 encounter Plan of Treatment Upcoming Encounters Date Type Specialty Care Team Description 02/09/2022 Virtual Visit Surgery Mindi Llanes PA-C [address] [facility] [address] [place] [address] (Wo rk) documented as of this encounter Visit Diagnoses Diagnosis Type 1 diabetes mellitus with complicati ons (H) - Primary Abdominal bloating Flatulence, eructation, and gas pain documented in this encounter Care Teams Logistician Relationship Specialty Start Date End Date Goran Lloyd PCP - General Family Practice 12/29/17 05/21/[address] [address] Annette Alvarez, Nurse Practitioner Clinical Nurse 03/22/17 10/21/20 JOB SITE SUPERVISOR TURBO ELECTRIC OPERATOR Specialist [address] [place], [place] [id number] Jocelyn Davidson RD Roller Inspector And Mender Dietitian, Registered 05/25/18 [facility] MAGGIE [facility] [place] [address] documented as of this encounter
--- OUTSIDE RECORDS SUMMARY | 2022-01-11 20:20 | XMS_ITS | Encounter Summary ---
:1965 Author Organization [place] Address [address] [place] [address]. 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 as of this encounter Plan of Treatment Upcoming Encounters Date Type Specialty Care Team Description 02/09/2022 Virtual Visit Surgery Mindi Llanes PA-C [facility] [facility] [address] [place] [address] (Wo rk) documented as of this encounter Visit Diagnoses Not on filedocumented in this encounter Care Teams Audit Practice Intern Relationship Specialty Start Date End Date Goran Lloyd PCP - General Family Practice 12/29/17 05/21/20 [facility] [address] [place] [address] Annette Alvarez, Nurse Practitioner Clinical Nurse 03/22/17 10/21/20 FIELD MARKETING DIRECTOR HEAD START ASSISTANT TEACHER Specialist [address] [place] [address] Soap Slabber Dietitian, Registered 05/25/18 [facility] MAGGIE [facility] [place] [place] [address] documented as of this encounter
--- OUTSIDE RECORDS SUMMARY | 2022-01-11 20:20 | XMS_ITS | Encounter Summary ---
:1965 Author Organization [place] Address [address] [facility] [place] [address] Care Team Providers Name Role Phone Annette Alvarez APRN PROCESSING ASSOCIATE Unavailable Goran Lloyd Primary Care Provider Jocelyn Davidson RD Unavailable Reason for Visit Reason Onset Date Comments Forms 05/26/2018 Tandem pump Encounter Details Date Type Department Care Team Description 05/26/2018 Telephone [facility] Jocelyn Davidson, RENATA Forms (Tandem pump) [address] [phone] Social History Tobacco Use Types Packs/Day Years Used Date Smoking Tobacco: Never Smokeless Tobacco: Never Alcohol Use Standard Drinks/Week Comments Yes 0 (1 standard drink = 0.6 oz pure alcoho l) rare Sex Assigned at Date Recorded 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 Patient filled out Tandem AOB after CDE visit 05/25/18. Forms faxed on 05/26/18- follow up e-mail also sent to Barber Corona and Michelle Mary at [facility]. Original forms with Mimi Cyr MA/ Annette Alvarez NP. [employer] message sent to Marnie as fyi. Jocelyn Davidson RD, CDE Diabetes Developmental Writing Instructor T SEALER documented in this encounter Plan of Treatment Upcoming Encounters Date Type Specialty Care Team Description 02/09/2022 Virtual Visit Surgery Mindi Llanes PA-C [address] [facility] [address] [place] [address] (Wo rk) documented as of this encounter Visit Diagnoses Not on filedocumented in this encounter Care Teams Sdc Teacher Relationship Specialty Start Date End Date Goran Lloyd PCP - General Family Practice 12/29/17 05/21/[address] [address] Annette Alvarez, Nurse Practitioner Clinical Nurse 03/22/17 10/21/20 AGILE TESTER PROCESSING ASSOCIATE Specialist [address] [place] [address] Cash Applications Manager Dietitian, Registered 05/25/18 [facility] MAGGIE [facility] [place] [address] documented as of this encounter
--- NOTE | 2022-01-11 20:21 | ED.ABDPAIN ---
HPI - Abdominal Pain General Chief Complaint: Abdominal Pain Stated Complaint: Gallbladder Time Seen by Provider: 01/11/22 19:52 History of Present Illness HPI narrative: This patient was at a clinic appointment today in the OBGYN department. She had an abdominal ultrasound because of abdominal pain which identified evidence of gallbladder disease. She was recommended to come here for further evaluation and treatment. The patient states that her pain is moderate. It is worse with taking food. She states that she has been having pain like this for a good while. She thought it was related to her diabetes in occasional constipation. She does not report any fevers. She has not had any nausea and vomiting. She does have tenderness in the right upper quadrant. Related Data Home Medications Medication Instructions Recorded Confirmed amitriptyline 25 mg tablet 25 mg PO PRN 01/11/22 glucagon 1 mg solution for 1 mg PRN 01/11/22 injection (Glucagon Emergency Kit) levothyroxine 175 mcg tablet 200 mcg PO DAILY 01/11/22 01/11/22 lisinopril 10 mg tablet 10 mg PO DAILY 01/11/22 01/11/22 ondansetron 8 mg disintegrating 8 mg PRN 01/11/22 tablet phentermine 37.5 mg tablet 37.5 mg PO DAILY 01/11/22 01/11/22 pregabalin 150 mg capsule 300 mg PO BID 01/11/22 01/11/22 Previous Rx's Medication Instructions Recorded methocarbamol 500 mg tablet 500 mg PO QID PRN spasm #40 tabs 11/11/21 estradiol 0.01% (0.1 mg/gram) 0.5 g vaginal 2XW #42.5 grams 11/25/21 vaginal cream (Estrace) pregabalin 300 mg capsule 300 mg PO BID #180 caps 11/26/21 amoxicillin 500 mg capsule 2,000 mg PO ONCE #16 caps 11/27/21 tolterodine 2 mg tablet 2 mg PO BID #180 tabs 12/14/21 citalopram 40 mg tablet 40 mg PO QDAY #30 tabs 12/23/21 oxybutynin chloride 10 mg 10 mg PO QDAY #30 tabs 12/28/21 tablet,extended release 24 hr Allergies Allergy/AdvReac Type Severity Reaction Status Date / Time No Known Drug Allergies Allergy Verified 01/11/22 18:38 Review of Systems Status of ROS Reports: 10 or more systems reviewed and unremarkable except as noted in History and below Narrative Constitutional: No fevers, no weight gain or loss. Eyes: No discharge. No vision changes. HENT: No congestion, no sore throat, no ear pain. Cardiovascular: No chest pain, no palpitations. Respiratory: No shortness of breath, no wheezes, no cough. Gastrointestinal: No vomiting, no diarrhea. Right upper quadrant abdominal pain as described above. Genitourinary: No dysuria, no hematuria. Musculoskeletal: Normal range of motion. Skin: No rashes, no pruritis. Neurological: No dizziness, weakness, sensory change, speech change. Endo/Heme/Allergies: No bruising or bleeding. No polydipsia. Pysch: no suicidality, no anxiety, no insomnia. All other systems reviewed and are negative. [facility] Medical History (Updated 01/11/22 @ 21:21 by Constantino Ruiz MD) Gastroesophageal reflux disease (05/31/13) Herpes simplex type 2 infection History of osteomyelitis History of pulmonary embolism (06/07/14) History of tear of meniscus of knee joint Hypothyroidism Latent tuberculosis diagnosed by blood test Low back pain Methicillin resistant Staphylococcus aureus culture positive Migraine headache Need for SBE (subacute bacterial endocarditis) prophylaxis Obesity Obstructive sleep apnea syndrome Osteoarthritis of knees, bilateral Stage 3 chronic kidney disease (06/28/16) Urinary bladder incontinence Surgical History (Updated 01/04/22 @ 15:01 by Lulu Snow MD) History of arthroscopy of shoulder (2003) History of right nephrectomy (2007) History of total right knee replacement (2018) Family History (Updated 09/25/21 @ 14:40 by Flash Tony) Father Heart disease Type 2 diabetes mellitus Sister Type 2 diabetes mellitus Social History (Updated 12/27/21 @ 22:09 by Lulu Snow MD) Narrative: , no kids Non-smoker Social EtOH 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 She really likes this job. She does not smoke. She does not drink alcohol She does not use recreational drugs Smoking Status: Never smoker Non-prescribed substance use: denies use Exam Narrative: Exam Narrative: Constitutional: Well-developed, well-nourished, no acute distress. HEENT: Normocephalic, atraumatic. Neck: Normal range of motion. Nontender. Supple. Heart: Regular. No murmurs. Normal rate. Intact distal pulses. Lungs: Clear to auscultation. No chest discomfort. No wheezes, rhonchi, or rales. Abdomen: Normal bowel sounds. Distinct pain when palpating in the right upper quadrant. No rebound tenderness. Genitalia: Deferred. Back: No midline tenderness. Normal range of motion. Extremities: Normal range of motion. No injury. Skin: Intact. No rash. Warm. No erythema or pallor. Neurologic: No altered sensation. No weakness. Alert and oriented. Psychiatric: No suicidality. No anxiety or depression. No insomnia. Nursing notes and vitals signs are reviewed. Const: Vital Signs, click to edit/add: Vital Signs - 24 hr 01/11/22 18:31 Temperature 97.5 F L Pulse Rate [Right Pulse Oximeter] 62 Respiratory Rate 18 Blood Pressure [Ri ght Upper Arm] 163/68 H Pulse Oximetry 98 Oxygen Delivery Me thod Room Air Course Vital Signs Vital signs: Initial Vital Signs Temperature 97.5 F L 01/11/22 18:31 Temperature Source Temporal Artery Scan 01/11/22 18:31 Pulse Rate 62 01/11/22 18:31 Respiratory Rate 18 01/11/22 18:31 Blood Pressure 163/68 H 01/11/22 18:31 Blood Pressure Mean 99 01/11/22 18:31 Blood Pressure Position Sitting 01/11/22 18:31 Pulse Oximetry 98 01/11/22 18:31 Oxygen Delivery Method 01/11/22 18:31 Vital Signs Temperature 97.5 F L 01/11/22 18:31 Pulse Rate 62 01/11/22 18:31 Respiratory Rate 18 01/11/22 18:31 Blood Pressure 163/68 H 01/11/22 18:31 Pulse Oximetry 98 01/11/22 18:31 Oxygen Delivery Method 01/11/22 18:31 Temperature 97.5 F L 01/11/22 18:31 Pulse Rate 62 01/11/22 18:31 Respiratory Rate 18 01/11/22 18:31 Blood Pressure 163/68 H 01/11/22 18:31 Pulse Oximetry 98 01/11/22 18:31 Oxygen Delivery Method 01/11/22 18:31 MDM - Abdominal Pain MDM Narrative Medical decision making narrative: This patient had an ultrasound at a clinic appointment earlier today which showed evidence of cholelithiasis. She was sent here for further evaluation and treatment. Lab results are acquired and show reassuring findings. There are no signs of pancreatitis, cholecystitis, or obstruction in lab results. I advised her to follow-up with surgery Clinic to consider cholecystectomy. She did receive a prescription for Wrens. I advised her to return if worsening symptoms happen. Lab Data Labs: Lab Results 01/11/22 01/11/22 01/11/22 Range/Units 20:05 20:05 20:05 WBC 5.55 (4.50-11.00) K/uL RBC 4.02 (4.00-5.20) m/uL Hgb 12.0 (12.0-16.0) gm/dL Hct 37.2 (33.0-51.0) % MCV 93 (80-100) fL MCH 30 (26-34) pg MCHC 32 (32-36) gm/dL Plt Count 267 (140-440) K/uL Neut % (Auto) 47.3 (42.0-72.0) % Lymph % (Auto) 42.0 (20-44) % [place] % (Auto) 7.4 (0.0-11.0) % Eos % (Auto) 2.0 (0.0-7.0) % Baso % (Auto) 0.9 (0.0-3.0) % Neut # (Auto) 2.60 (1.7-7.0) K/uL Lymph # (Auto) 2.30 (0.90-2.90) K/uL [place] # (Auto) 0.40 (0.00-0.90) K/UL Eos # (Auto) 0.10 (0.00-0.50) K/uL Baso # (Auto) 0.00 (0.00-0.30) K/uL Sodium 138 (135-149) mmol/L Potassium 4.4 (3.6-5.1) mmol/L Chloride 105 (96-114) mmol/L Carbon Dioxide 26 (20-32) mmol/L BUN 21 (7-30) mg/dL Creatinine 1.5 (0.5-1.5) mg/dL Estimated Creat Clear 46.81 Estimated GFR 41 ml/min Glucose 123 H (60-115) mg/dL Calcium 9.5 (8.4-10.6) mg/dL Total Bilirubin 0.4 (0.1-1.5) mg/dL Direct Bilirubin 0.1 (0.0-0.5) mg/dL AST 30 (12-35) U/L ALT 24 (4-35) U/L Alkaline Phosphatase 91 (40-150) U/L Total Protein 7.5 (6.0-8.3) g/dL Albumin 4.5 (3.3-5.0) g/dL Lipase 43 (23-300) U/L Discharge Plan Discharge Clinical Impression: Cholelithiasis Patient Disposition: Home, Self-Care Condition: Stable Additional Instructions: Take medication as needed and indicated. Follow up with surgery Clinic to consider cholecystectomy. Return if worsening. Prescriptions: No Action oxybutynin chloride 10 mg tablet extended release 24hr 10 mg PO QDAY Qty: 30 1RF Rx Instructions: Please call [facility] at [phone] to schedule an appointment, no future refills will be authorized. amitriptyline 25 mg tablet 25 mg PO PRN Label Comments: TAKE THREE TABLETS BY MOUTH DAILY AT BEDTIME Glucagon Emergency Kit (human) 1 mg recon soln 1 mg PRN Label Comments: INJECT 1 MG BY INTRAMUSCULAR ROUTE NEEDED FOR LOW BLOOD SUGAR levothyroxine 175 mcg tablet 200 mcg PO DAILY Label Comments: TAKE ONE TABLET BY MOUTH ONE TIME DAILY lisinopril 10 mg tablet 10 mg PO DAILY Label Comments: TAKE ONE TABLET BY MOUTH ONE TIME DAILY ondansetron 8 mg tablet,disintegrating 8 mg PRN phentermine 37.5 mg tablet 37.5 mg PO DAILY Label Comments: take 0.5 tablets by mouth once daily in the morning for 10 days, then increase to 1 tablet if needed. pregabalin 150 mg capsule 300 mg PO BID methocarbamol 500 mg tablet 500 mg PO QID PRN (Reason: spasm) Qty: 40 1RF estradiol [Estrace] 0.01 % (0.1 mg/gram) cream 0.5 g vaginal 2XW Qty: 42.5 0RF Label Comments: takes on and Tuesday pregabalin 300 mg capsule 300 mg PO BID Qty: 180 1RF amoxicillin 500 mg capsule 2,000 mg PO ONCE Qty: 16 1RF tolterodine 2 mg tablet 2 mg PO BID Qty: 180 1RF citalopram 40 mg tablet 40 mg PO QDAY Qty: 30 0RF Follow Up/Referrals: Nikita Gamble MD [Primary Care Provider] - Stand Alone Forms: [facility] Info Instructions
--- OUTSIDE RECORDS SUMMARY | 2022-01-11 20:21 | XMS_ITS | Encounter Summary ---
:1965 Author Organization [facility] Address [address] [place] [address]. [place] [address] Care Team Providers Name Role Phone No Ref-Primary, Physician Primary Care Provider [phone] Reason for Referral Patient Education - Closed Specialty Diagnoses / Procedures Referred By Contact Refer red To Contact Diagnoses Uncontrolled type 1 diabetes mellitus with stage 3 chronic kidney disease Lashae Alvarez APRN [facility] [address] [phone] Referral ID Status Reason Start Date Expiration Date Visits Requ ested Visits Authorized [id number] Closed 12/10/2016 12/10/2017 1 1 Reason for Visit Reason Comments Diabetes Encounter Details Date Type Department Care Team Description 11/25/2016 Office Visit [facility] Lashae Alvarez ed type 1 diabetes mellitus with stage 3 chronic kidney disease (H) (Primary Dx); [facility] CNP PCOS (polycystic ovarian syndrome) [address] [place] [id number] [phone] Social History Tobacco Use Types Packs/Day Years Used Date Smoking Tobacco: Never Smokeless Tobacco: Never Alcohol Use Standard Drinks/Week Comments Yes 0 (1 standard drink = 0.6 oz pure alcoho l) rare Sex Assigned at Date Recorded Female 03/04/2020 12:33 PM [employer] documented as of this encounter Last Filed Vital Signs Vital Sign Reading Time Taken Comments Blood Pressure 118/67 11/25/2016 2:27 PM CDT Pulse 72 11/25/2016 2:27 PM CDT Temperature 36.6 ??C (97.9 ??F) 11/25/2016 2:27 PM CDT Respiratory Rate 16 11/25/2016 2:27 PM CDT Oxygen Saturation 96% 11/25/2016 2:27 PM CDT Inhaled Oxygen Concentration - - Weight 110.9 kg (244 lb 9.6 oz) 11/25/2016 2:27 PM CDT Height - - Body Mass Index 33.64 12/25/2014 9:45 PM CDT documented in this encounter Patient Instructions Patient InstructionsLashae Alvarez APRN CNP - 11/25/2016 2:00 PM CDT Component Latest Ref Rng & Units 11/25/2016 Hemoglobin A1C 4.3 - 6.0 % 7.8 (H) Stop Lantus Start Tresiba 60 units once daily. I'm repeating kidney function today, we can consider starting Metformin. Schedule an appointment with Yadira Garcia, inclusion special educator for prepump education. Follow up with me in one month. Lashae Alvarez NP Endocrinology documented in this encounter Progress Notes Lashae Alvarez APRN CNP - 11/28/2016 9:42 PM CDT Please mail comments and results to the patient. Marnie, Your kidney function test was lower than previous tests. I do not recommend restarting Metformin at this time. We'll repeat the kidney test at your next follow up visit. Lashae Alvarez NP Endocrinology Lashae Alvarez APRN CNP - 11/25/2016 2:00 PM CDT Name: Marnie Duvall Seen at the request of No Ref-Primary, Physician for Diabetes. HPI: Marnie Duvall is a 51 year old female who presents for the evaluation/management of type 1 diabetes. 1. Type 1 DM: Originally diagnosed at the age of 88 years old. DKA: No Current Regimen: Lantus 60 units qd (dose was last decreased 3 weeks ago), Novolog 1:10 + 1:20 >140. BS checks: 4-6 x/day, + Dexcom Average Meter Download: 182, BG range: 40-398 Previously seeing endo at [employer] [facility] History of right nephrectomy 12 years ago - was having severe pain prior to surgery, thinks due topolycystic kidney disease Lives in [place] Complications: Diabetes Complications Description / Detail Diabetic Retinopathy No retinopathy, last eye exam 06/2016 CAD / PAD No Neuropathy Yes, currently treated with Lyrica 75 mg bid Nephropathy / Microalbuminuria Yes, ckd stage 3 Gastroparesis No Hypoglycemia Unawareness No 2. Hypertension: Blood Pressure today: BP Readings from Last 3 Encounters: 11/25/16 118/67 12/26/14 120/54 . Blood pressure medications include Lisinopril 10 mg qd. 3. Hyperlipidemia: Takes no medications for lipid control. 4. Hypothyroidism. Currently treated with levothyroxine 150 mcg - Tuesday, , Tuesday, 175 mcg - Tuesday, Tuesday, Tuesday, Tuesday = average daily dose 164 mcg/day. Prevention: Flu Shot- recommend annually Pneumovax- recommended Opthalmology-yes annually, last exam 06/2016. [...] ??? Not on file Social History Narrative ??? No narrative on file MEDICATIONS: has a current medication list which includes the following prescription(s): pyridoxine hcl, calcium carb-cholecalciferol, lisinopril, citalopram hydrobromide, topiramate, aspirin, omeprazole, insulin degludec, oxycodone- acetaminophen, and synthroid. ROS ROS: 10 point ROS of systems including Constitutional, Eyes, Respiratory, Cardiovascular, Gastroenterology, Genitourinary, Integumentary, Muscularskeletal, Psychiatric were all negative except for pertinent positives noted in my HPI. Physical Exam VS: BP 118/67 (BP Location: Left arm, Patient Position: Chair, Cuff Size: Adult Large) Pulse 72 Temp 97.9 ??F (36.6 ??C) (Oral) Resp 16 Wt 110.9 kg (244 lb 9.6 oz) LMP 11/17/2016 SpO2 96% ? No BMI 33.64 kg/m2 GENERAL: AXOX3, NAD, well dressed, answering questions appropriately, appears stated age. HEENT: no exophthalmos, no proptosis, EOMI, no lig lag, no retraction CV: RRR, no rubs, gallops, no murmurs LUNGS: CTAB, no wheezes, rales, or rhonchi ABDOMEN: soft, nontender, nondistended EXTREMITIES: no edema, +pulses, no rashes, no lesions NEUROLOGY: CN grossly intact, + monofilament, no tremors MSK: grossly intact SKIN: no rashes, no lesions LABS: A1c: Component Latest Ref Rng & Units 11/25/2016 Hemoglobin A1C 4.3 - 6.0 % 7.8 (H) BMP: Urine Micro: LFTs/Lipids: TFTs: TSH 0.56 (07/05/2016) Vitamin D: Blood Glucose Meter reviewed. All pertinent notes, labs, and images personally reviewed by me. A/P Ms.Holly Debbie Duvall is a 51 year old here for the evaluation/management of diabetes: 1. DM1 - Uncontrolled. --High insulin use for type 1 diabetes indicating likely insulin resistance. --Repeat creatinine today, consider metformin depending on creatinine level. --current blood sugars highly variable --discontinue Lantus --Start Tresiba 60 units qd. --Continue Novolog at the current dose for [...] This Encounter Procedures ??? Hemoglobin A1c ??? Albumin Random Urine Quantitative with Creat Ratio ??? Basic metabolic panel Radiology/Consults ordered today: All questions were answered. The patient indicates understanding of the above issues and agrees withthe plan set forth. Total face to face time greater than or equal to 45 minutes. Follow-up: 1 month Lashae Alvarez NP Endocrinology [facility] CC: documented in this encounter Nursing Notes Mimi Cyr CMA - 11/25/2016 2:00 PM CDT Chief Complaint Patient presents with ??? Diabetes Initial BP 118/67 (BP Location: Left arm, Patient Position: Chair, Cuff Size: Adult Large) Pulse 72 Temp 97.9 ??F (36.6 ??C) (Oral) Resp 16 Wt 244 lb 9.6 oz (110.9 kg) LMP 11/17/2016 SpO2 96% ? No BMI 33.64 kg/m2 Estimated body mass index is 33.64 kg/(m^2) as calculated from the following: Height as of 15: 5' 11.5 (1.816 m). Weight as of this encounter: 244 lb 9.6 oz (110.9 kg). Medication Reconciliation: complete Mimi Cyr M.A. documented in this encounter Miscellaneous Notes Addendum Note - Lashae Alvarez APRN CNP - 12/10/2016 11:24 AM CDT Addended by: LASHAE ALVAREZ on: 12/10/2016 11:24 AM Modules accepted: Orders documented in this encounter Plan of Treatment Upcoming Encounters Date Type Specialty Care Team Description 02/09/2022 Virtual Visit Surgery Mindi Llanes PA-C [id number] [place] [id number] (Wo rk) documented as of this encounter Procedures Procedure Name Priority Date/Time Associated Diagnosis Comme nts ALBUMIN RANDOM URINE Routine 11/25/2016 2:33 PM Uncontrolled t ype 1 Results for this QUANTITATIVE CDT diabetes mellitus procedure are in with stage 3 chronic the res ults kidney disease (H) section. HEMOGLOBIN A1C Routine 11/25/2016 2:33 PM Results for this CDT procedure are i n the results section. BASIC METABOLIC PANEL Routine 11/25/2016 2:33 PM Uncontrolled type 1 Results for this CDT diabetes mellitus procedure are in with stage 3 chronic the res ults kidney disease ( H) section. PCOS (polycystic ovarian syndrome) documented in this encounter Results (ABNORMAL) Basic metabolic panel (11/25/2016 2:33 PM CDT) [facility] Method Time Signature Sodium 139 133 - 144 [facility]L 3:30 PM CDT [facility] Potassium 4.4 3.4 - 5.3 11/26/2016 [facility] mmol/L 3:30 PM CDT [facility] Chloride 106 94 - 109 11/26/2016 [facility] mmol/L 3:30 PM CDT [facility] Carbon Dioxide 24 20 - 32 11/26/2016 [facility] mmol/L 3:30 PM CDT [facility] Anion Gap 9 3 - 14 11/26/2016 [facility] mmol/L 3:30 PM CDT [facility] Glucose 117 (H) 70 - 99 11/26/2016 [facility] mg/dL 3:30 PM CDT [facility] Urea Nitrogen 30 7 - 30 11/26/2016 [facility] mg/dL 3:30 PM CDT [facility] Creatinine 2.10 (H) 0.52 - 11/26/2016 [facility] 1.04 3:30 PM CDT [facility] mg/dL [facility] GFR Estimate 25 (L) >60 11/26/2016 [facility] mL/min/1. 3:30 PM CDT [facility] 7m2 [facility] Comment: Non GFR Calc GFR Estimate If 30 (L) >60 mL/min/1.7m2 11/26/2016 3:30 P M [facility] Black T [facility] Comment: GFR Calc Calcium 8.9 8.5 - 10.1 mg/dL 11/26/2016 3:30 PM CDT [facility] Specimen Anatomical Collection Method Collection Time Receive d Time (Source) Location / / Volume Laterality Blood specimen 11/25/2016 2:33 PM 017 3:16 (specimen) CDT PM CDT Lashae Alvarez APRN, CNP LAB - BLOOD ORDERABLES Performing Organization Address City/State/ZIP Code Phon e Number [facility] [address] [place] [address] Albumin Random Urine Quantitative with Creat Ratio (11/25/2016 2:33 PM CDT) Patholo gist Method Time Signature Creatinine 26 mg/dL 11/25/2016 [place] Urine 5:45 PM CDT [facility] Albumin Urine <5 mg/L 11/25/2016 [place] mg/L 5:49 PM CDT [facility] Albumin Urine Unable to 0 - 25 11/25/2016 [place] mg/g Cr calculate due mg/g Cr 5:49 PM CDT [facility] Specimen Anatomical Collection Method Collection Time Receive d Time (Source) Location / / Volume Laterality Urine specimen 11/25/2016 2:33 PM 017 2:34 (specimen) CDT PM CDT Lashae Alvarez APRN [facility] LAB - URINE ORDERABLES Performing Organization Address City/[facility]/ZIP Code Phon e Number [facility] [address] [place] [address] [facility] [address] [place] [address], [facility] [phone] (ABNORMAL) Hemoglobin A1c (11/25/2016 2:33 PM CDT) P athologist Signature Hemoglobin A1C 7.8 (H) 4.3 - 6.0 11/25/2016 [place] % 2:57 PM CDT [facility] Comment: Results confirmed by repeat gail t Specimen Anatomical Collection Method Collection Time Receive d Time (Source) Location / / Volume Laterality Blood specimen 11/25/2016 2:33 PM 017 2:34 (specimen) CDT PM CDT Lashae Alvarez APRN, CNP LAB - BLOOD ORDERABLES Performing Organization Address City/State/ZIP Code Phon e Number [facility] [address] [place] [address] documented in this encounter Visit Diagnoses Diagnosis Uncontrolled type 1 diabetes mellitus wi th stage 3 chronic kidney disease - Primary Type I (juvenile type) diabetes mellitus with renal manifestations, uncontrolled PCOS (polycystic ovarian syndrome) Polycystic ovaries documented in this encounter Care Teams Supervisor Mending Relationship Specialty Start Date End Date No Ref-Primary, Physician PCP - General 12/25/14 12/28/17 documented as of this encounter
--- OUTSIDE RECORDS SUMMARY | 2022-01-11 20:21 | XMS_ITS | Encounter Summary ---
:1965 Author Organization [place] Address [address] [place] [address]. [place] [address] Care Team Providers Name Role Phone No Ref-Primary, Physician Primary Care Provider [phone] Reason for Visit Reason Comments Abdominal Pain fell in shower 2 nights ago, not sure if related to her abdominal pain or not. 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 Percocet for severe pain. Avoid driving/drinking/operating machinery with Percocet as this can make you drowsy. Warm packs to area. Follow up with MEDICAL SCREENER in 2 days for reevaluation, contact info provided. Discuss repeat ultrasound to monitor cyst size with MEDICAL SCREENER. Return to the ED for worsening symptoms, fevers, vomiting, or any other new concerns. Discharge Instructions Ovarian Cyst Abdominal pain can be caused by many things. Your doctor today has found that you have a cyst on theovary, which appears to be the cause of your pain. Women in their reproductive years form cysts every month, but only cause pain if they are very large, or if they rupture and release blood or fluid. Fortunately, they rarely require surgery or hospitalization. The pain from a ruptured cyst usually gets gradually better, and should be much better within a few days. If there is a large cyst, it will usually go away within 1-2 months, but needs to be watched to be sure it does go away, since sometimes a large cyst can become a cancer. There can be complications of a cyst, or other problems that cannotbe found right away, so it is very important that you follow up as directed. Return to the Emergency Department for a recheck if your pain gets worse, changes in location, or feels different. Return to the Emergency Department right away if: ??? You get an oral temperature above 102oF or as directed by your doctor. ??? You have blood in your stools (bright red or black, tarry stools), or in your vomit. ??? You keep throwing up or can???t drink liquids. ??? You can???t have a bowel movement or you can???t pass gas. ??? You faint, or feel very weak. ??? You have bloody, frequent or painful urination. ??? You have new symptoms or anything that worries you. What can I do to help myself? Take any medication prescribed by your doctor. ??? You may use Tylenol?? (acetaminophen) or Advil??, Motrin?? (ibuprofen) for pain. Be sure to readand follow the package directions, and ask your doctor if you have questions. ??? Narcotic pain pills. If you have been given a narcotic such as Vicodin?? (hydrocodone with acetaminophen), Percocet?? (oxycodone with acetaminophen), codeine, do not drive for four hours after you have taken it. If the narcotic contains Tylenol?? (acetaminophen), do not take Tylenol?? with it. Allnarcotics will cause constipation, so eat a high fiber diet. ??? Avoid sex for several days, because it will probably be painful. Follow-up: ??? See your doctor within 2-3 days for a re-check. If you were given a prescription for medicine here today, be sure to read all of the information (including the package insert) that comes with your prescription. This will include important information about the medicine, its side effects, and any warnings that you need to know about. The pharmacist who fills the prescription can provide more information and answer questions you may have about the medicine. If you have questions or concerns that the pharmacist cannot address, please call or return to the Emergency Department. Opioid Medication Information Pain medications are among the most commonly prescribed medicines, so we are including this information for all our patients. If you did not receive pain medication or get a prescription for pain medicine, you can ignore it. You may have been given a prescription for an opioid (narcotic) pain medicine and/or have received apain medicine while here in the Emergency Department. These medicines can make you drowsy or impaired. You must not drive, operate dangerous equipment, or engage in any other dangerous activities whiletaking these medications. If you drive while taking these medications, you could be arrested for DUI, or driving under the influence. Do not drink any alcohol while you are taking these medications. Opioid pain medications can cause addiction. If you have a history of chemical dependency of any type, you are at a higher risk of becoming addicted to pain medications. Only take these prescribed medications to treat your pain when all other options have been tried. Take it for as short a time and asfew doses as possible. Store your pain pills in a secure place, as they are frequently stolen and provide a dangerous opportunity for children or visitors in your house to start abusing these powerful medications. We will not replace any lost or stolen medicine. As soon as your pain is better, you should flush all your remaining medication. Many prescription pain medications contain Tylenol?? (acetaminophen), including Vicodin??, Tylenol #3??, [place]??, Lortab??, and Percocet??. You should not take any extra pills of Tylenol?? if you are using these prescription medications or you can get very sick. Do not ever take more than 3000 mg of acetaminophen in any 24 hour period. All opioids tend to cause constipation. Drink plenty of water and eat foods that have a lot of fiber, such as fruits, vegetables, prune juice, apple juice and high fiber cereal. Take a laxative if you don???t move your bowels at least every other day. Miralax??, Milk of Magnesia, Colace??, or Senna?? can be used to keep you regular. Remember that you can always come back to the Emergency Department if you are not able to see your regular doctor in the amount of time listed above, if you get any new symptoms, or if there is anything that worries you. documented in this encounter Medications at Time of Discharge Medication Sig Dispensed Refills Start Date End Date oxyCODONE-acetaminophen Take 1-2 tablets by 6 tablet 0 03/201402/04/2017 (PERCOCET) 5-325 MG per mouth every 4 hours tablet as needed for pain documented as of this encounter ED Notes Jessica Azar RN - 12/26/2014 3:54 AM CDT O2 restarted at 2L NC O2 sat dropped to 85% Sandy Barber RN - 12/26/2014 3:46 AM CDT PA at bedside T Jessica Azar RN - 12/26/2014 3:40 AM CDT O2 @ 2L stopped T Brian Neil DO - 12/26/2014 2:28 AM CDT Emergency Department Attending Supervision Note 12/26/2014 2:28 AM I evaluated this patient in conjunction with FE Casiano Briefly, the patient presented with abdominal pain. On my exam, the pt ws uncomfortable appearing and had LLQ tenderness. No CVA tenderness. No pulsatile abdominal mass. My impression is abdominal pain and ovarian cyst. Brief MDM: Marnie Duvall is a very pleasant 49 year old year old female who presents to the emergency department with concern of abdominal pain. She was uncomfortable appearing. Labs were reassuring. Lactic acid is normal. Mesenteric ischemia is unlikely. CT shows no AAA. 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 Pelvic US shows good color flow to ovary. No evidence of torsion. She has a large cyst on the ovary. She felt better after receiving dilaudid. 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 is here with her. She desires to go home. Encouraged her to follow up with OB. Discussed ovary needs to be reassessed to ensure resolution of cyst and ensure not ovarian cancer. She agrees. The treatment plan was discussed with the patient and they expressed understanding of this plan and consented to the plan. In addition, the patient will return to the emergency department if their symptoms persist, worsen, if new symptoms arise or if there is any concern as other pathology may be present that is not evident at this time. They also understand the importance of close follow up in the clinic and if unable to do so will return to the emergency department for a reevaluation. All questions were answered. Diagnosis ICD-10-CM 1. Cyst of left ovary N83.20 2. Abdominal pain in female R10.9 DO Rashaad Fitzgerald Robert James, DO 12/26/14 0234 Gale Higuera RN - 12/25/2014 11:29 PM CDT Pt continues to have severe pain; medication does not appear to bring pt any relief at this point; pt up for CT right now. Constance Wolff PA-C - 12/25/2014 10:21 PM CDT History Chief Complaint: Abdominal Pain HPI Marnie Duvall is a 49 year old female with a history of diabetes and PE who is currently on warfarin presents to the ED with for evaluation of abdominal pain. The patients reports gradual onset left lower abdominal pain one week ago that has been intermittent since onset, with increased frequency in the evenings. The pain significantly worsened this evening with radiation to her left lower back, prompting her arrival to the ED. Upon arrival, the patient rates her pain as a 10/10 in severity. She reports associated nausea and vomiting. She notes she was recently constipated, but took two Senna tablets yesterday evening and had relief with a bowel movement this morning. The patient denies any fevers, chills, diarrhea, urinary symptoms, abnormal vaginal discharge or bleeding. She does stillmenstruate, with her last cycle approximately one month ago. The patient denies any radiation of pain to her chest or shortness of breath. She voices no further complaints or concerns at this time. 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 Review of Systems Constitutional: Negative for fever and chills. Cardiovascular: Negative for chest pain. Gastrointestinal: Positive for nausea, vomiting and abdominal pain. Negative for diarrhea and blood in stool. Genitourinary: Negative for dysuria, urgency, frequency, hematuria, vaginal bleeding and vaginal discharge. Musculoskeletal: Positive for back pain. Neurological: Negative for dizziness and light-headedness. All other systems reviewed and are negative. Physical Exam Patient Vitals for the past 24 hrs: BP Temp Temp src Pulse Heart Rate Resp SpO2 Height 12/26/14 0330 118/67 mmHg - - - - - - - 12/26/14 0315 - - - - - - 98 % - 12/26/14 0314 121/67 mmHg - - - - - - - 12/26/14 0231 - - - - - - 96 % - 12/26/14 0230 100/56 mmHg - - - - - - - 12/26/14 0202 91/44 mmHg - - - - - 96 % - 12/26/14 0201 - - - - - - 98 % - 12/26/14 0159 99/49 mmHg - - - - - - - 12/26/14 0141 - - - - - - 97 % - 12/26/14 0139 94/52 mmHg - - - - - - - 12/26/14 0045 - - - - - - 98 % - 12/26/14 0030 127/46 mmHg - - - - - - - 12/25/14 2358 - - - - - - 94 % - 12/25/14 2357 125/55 mmHg - - - - - - - 12/25/14 2145 136/51 mmHg 97.4 ??F (36.3 ??C) Oral 71 71 18 - 1.816 m (5' 11.5) Physical Exam Nursing note and vitals reviewed. GENERAL: Alert, writhing in pain. HEENT: Normal conjunctiva. No scleral icterus. MMM. NECK: Supple. CARDIAC: Normal rate and regular rhythm. Normal heart sounds. No murmurs, rubs, or gallops appreciated. Intact distal pulses. PULMONARY: CTA bilaterally. Normal breath sounds. No wheezing, crackles, or rhonchi appreciated. ABDOMEN: Generalized abdominal tenderness, greatest in left lower quadrant. No rebound or or guarding. Positive bowel sounds, all four quadrants. : Normal external genitalia. Cervix normal. No vaginal discharge or bleeding noted. No cervical motion tenderness or adnexal tenderness. NEURO: Alert and oriented. Non-focal. MUSCULOSKELETAL: Normal range of motion. No peripheral edema. No CVA tenderness. SKIN: Skin is warm and dry. No rashes. No pallor or jaundice. PSYCH: Normal affect and mood. Emergency Department Course Imaging: Radiographic findings were communicated with the patient who voiced understanding of the findings. CT Abdomen and Pelvis, no contrast, as per radiology: IMPRESSION: 1. Probable 4 cm cyst in the left ovary. 2. Small amount of free pelvic fluid. 3. No bowel obstruction or inflammation. No other acute abnormality. Pelvis US, with Transvaginal & Abd/Pel Duplex Limited, per radiology: 1. There are two complex, likely hemorrhagic left ovarian cysts. No ovarian torsion. 2. No other acute abnormality. Laboratory: UA: Clear, yellow urine; Glc 100 (A), Rest WNL HCG Qualitative Urine: Negative CBC: WBC 10.7 (WNL) HGB 11.9 (WNL) PLT 290 (WNL) HCT 34.5 (L) Rest WNL CMP: Cr 1.27 (H) Glucose 77 (WNL) GFR 45 (L) Rest WNL Lipase: 165 Lactic Acid: 1.3 INR: 1.6 Interventions: Dilaudid, 1mg, IV, X2 Zofran, 4mg, IC Morphine, 4mg, IV NS, 1000ml, IV ED Course: The patient arrived in triage where her vitals were measured and recorded. The patient was then escorted back to the emergency department. I performed a physical examination of the patient as documented above. A peripheral IV was established. The patient received the above interventions. Blood was drawn and sent to the laboratory for testing, see above results. Urine was sent to the laboratory for testing, see above results. The patient underwent the above imaging studies. Upon reevaluation the patient, she reported improvement of her pain, but was very sleepy, likely secondary to the opioids. She was placed on continuous cardiac and pulse oximetry monitoring. Supplemental oxygen was placed. I personally reviewed the laboratory and imaging results with the Patient and answered all related questions prior to discharge. Upon reevaluation the patient remained very sleepy, unable to stay awake to complete full sentences.She was trialed off of supplemental oxygen with saturations dipping into the mid 80s. Discussed monitoring the patient for another 2 hours and she was in agreement. Findings and plan explained to the Patient. Patient discharged home with instructions regarding supportive care, medications, and reasons to return. The importance of close follow-up was reviewed. Impression & Plan Medical Decision Making: Marnie Duvall is a 49 year old female who presents to the ED with significant left lower abdominal pain. Differential diagnosis includes but is not limited to ovarian cyst (enlarged or ruptured), ovarian torsion, PID, diverticulitis, UTI, pyelonephritis, ureteral stone, obstruction, mesenteric ischemia, AAA, etc. On my exam, the patient is afebrile and hemodynamically stable. She is writhing in painon the gurney. She does have tenderness in the LLQ/suprapubic area, but no rebound or guarding. Laboratory work up was unremarkable, including a normal white count and normal hemoglobin. Mesenteric ischemia considered with the pain out of proportion to exam findings, but lactic acid was unremarkable, ruling this out. Urine was negative for infection and she did not have any CVA tenderness to suggest pyelonephritis. Lipase was WNL, ruling out pancreatitis. The patient is not , ruling outectopic . She has not had any fevers and did not have CMT on exam, making PID unlikely. CT abdomen and pelvis subsequently obtained, w/o contrast due to patient's chronic renal insufficiency s/p right nephrectomy. This revealed a 4 cm cyst in the left ovary. There was no evidence of ureteral stone, diverticulitis, obstruction, AAA, or intraabdominal hemorrhage. With the finding of the cyst, pelvis US subsequently obtained to evaluate for torsion and this revealed two complex, likely hemorrhage left ovarian cysts in addition to the 4 cm cyst, but no evidence of torsion or other abnormalities. I suspect her pain is secondary to the cyst findings. No other etiology for the patients pain is found at this point and my suspicion of an intraabdominal catastrophe or other worrisome etiology is very low. Initially, her pain was not controlled with Morphine 4 mg or first dose of Dilaudid 1 mg. Thus, a second dose of Dilaudid was administered. Upon recheck, she had improvement of her pain, but was very sleepy. Her oxygen saturations were dropping to the mid 80s, so supplemental oxygen was placed with improvement to the 90s. I suspect this is likely a response from the opioid interventions in combination with undiagnosed underlying sleep apnea. Recommended patient follow up with MEDICAL SCREENER in two days for reevaluation and to discuss scheduling repeat ultrasound for monitoring. Instructed patient to rest, drink plenty of fluids, Tylenol or Ibuprofen for pain, warm packs to area. A small prescription for Percocet x 6 tablets provided for break through pain. I reviewed the adverse effects of the prescriptions at discharge, including avoiding driving, drinking, or operating any machinery while taking opioids. Reasons to return to the ED were reviewed including worsening pain, fevers, vomiting, or any other new concerns. Due to patient's drowsiness and requirement for supplemental oxygen, will monitor in the ED until more awake, saturating fine on room air, and stable for discharge. My supervising physician discussed the patient our colleague Dr. Mahmood who will take over care until patient is stable for discharge. Diagnosis: ICD-10-CM 1. Cyst of left ovary N83.20 2. Abdominal pain in female R10.9 Disposition: Discharge to home Plan: - Rest, fluids, Tylenol or Ibuprofen for pain, Percocet for break through pain - Follow up with MEDICAL SCREENER in 2 days for reevaluation Discharge Medications: New Prescriptions OXYCODONE-ACETAMINOPHEN (PERCOCET) 5-325 MG PER TABLET Take 1-2 tablets by mouth every 4 hours as needed for pain I saw the above patient and shared service with Dr. Brian Neil. Please see his brief note for additional details. I, Larry Raymundo, am serving as a scribe on 12/25/2014 at 10:21 PM to personally document services performed by Constance Wolff PA-C, based on my observations and the provider's statements to me. Constance Wolff PA-C 12/26/14 0433 Associated attestation - Brian Neil DO - 12/26/2014 4:34 AM CDT I saw and evaluated this patient with the APC. Please see my note as well. documented in this encounter Plan of Treatment Upcoming Encounters Date Type Specialty Care Team Description 02/09/2022 Virtual Visit Surgery iMndi Llanes PA-C [address] [place] [id number] (Wo rk) documented as of this encounter Procedures Procedure Name Priority Date/Time Associated Comments Diagnosis GLUCOSE BY METER Routine 12/26/2014 2:18 AM Resul ts for this CDT procedure are i n the results section. US PELVIS COMPLETE W STAT 12/26/2014 1:36 AM R esults for this TRANSVAGINAL AND CDT procedure a re in DOPPLER LIMITED the results section. CT ABDOMEN PELVIS W/O STAT 12/25/2014 11:51 Re sults for this CONTRAST PM CDT procedure are i n the results section. CBC WITH PLATELETS & STAT 12/25/2014 10:48 Res ults for this DIFFERENTIAL PM CDT procedure are i n the results section. INR Routine 12/25/2014 10:48 Results for this PM CDT procedure are i n the results section. LIPASE STAT 12/25/2014 10:48 Results for this PM CDT procedure are i n the results section. LACTIC ACID WHOLE STAT 12/25/2014 10:48 Result s for this BLOOD PM CDT procedure are i n the results section. COMPREHENSIVE STAT 12/25/2014 10:48 Results fo r this METABOLIC PANEL PM CDT procedure ar e in the results section. HCG QUALITATIVE URINE STAT 12/25/2014 10:05 Re sults for this PM CDT procedure are i n the results section. UA MACROSCOPIC WITH STAT 12/25/2014 10:05 Resu lts for this REFLEX TO MICRO PM CDT procedure ar e in the results section. documented in this encounter Results Glucose by meter (12/26/2014 2:18 AM CDT) P athologist Signature Glucose 95 70 - 99 POINT OF CARE mg/dL TEST, GLUCOSE Specimen Anatomical Collection Method Collection Time Receive d Time (Source) Location / / Volume Laterality 12/26/2014 2:18 AM 5 2:26 CDT AM CDT Brian Neil DO LAB - [facility] POCT Performing Organization Address City/State/ZIP Code Phon e Number [facility] POINT OF CARE TEST, GLUCOSE POINT OF CARE TEST, GLUCOSE US Pelvic Complete w Transvaginal & Abd/Pel Duplex Limited (12/26/2014 1:36 AM CDT) Anatomical Region Laterality Modality Abdomen/Pelvis Ultrasound Specimen (Source) Anatomical Location Collection Method / Collectio n Time Received Time / Laterality Volume Impressions 12/26/2014 5:40 AM CDT IMPRESSION: 1. There are two complex, likely hemorrh agic left ovarian cysts. No ovarian torsion. 2. No other acute abnormality. BK CAM MD Narrative 12/26/2014 5:40 AM CDT US PELVIS COMPLETE W TRANSVAGINAL AND DOPPLER LIMITED ??12/26/2014 1:36 AM ?? HISTORY: Left lower quadrant pain. COMPARISON: CT 12/25/2014. FINDINGS: Transabdominal and transvagina l imaging was performed. Transvaginal imaging was performed to be tter visualize the endometrium and adnexa. Uterus is normal in size and position measuring 8.8 x 4.3 x 3.1 cm. The endometrium is normal in t hickness at 0.8 cm. There is a 0.6 cm myometrial cyst in the uterine fu ndus of no significance. Right ovary is normal in size and appearance. The left ovary contains a simple cyst and two complex cysts. The c omplex cysts measure 2.4 and 1.7 cm in greatest dimensions. The simpl e cyst measures 2.5 cm in greatest dimension. Color Doppler and Do ppler waveform analysis of the ovaries shows blood flow bilaterally. No torsion. There is a small amount of clear free pelvic fluid. Procedure Note Bk Cam MD - 12/26/2014Form atting of this note might be different from the original. US PELVIS COMPLETE W TRANSVAGINAL AND DO PPLER LIMITED 12/26/2014 1:36 AM HISTORY: Left lower quadrant pain. COMPARISON: CT 12/25/2014. FINDINGS: Transabdominal and transvagina l imaging was performed. Transvaginal imaging was performed to be tter visualize the endometrium and adnexa. Uterus is normal in size and position measuring 8.8 x 4.3 x 3.1 cm. The endometrium is normal in t hickness at 0.8 cm. There is a 0.6 cm myometrial cyst in the uterine fu ndus of no significance. Right ovary is normal in size and appearance. The left ovary contains a simple cyst and two complex cysts. The c omplex cysts measure 2.4 and 1.7 cm in greatest dimensions. The simpl e cyst measures 2.5 cm in greatest dimension. Color Doppler and Do ppler waveform analysis of the ovaries shows blood flow bilaterally. No torsion. There is a small amount of clear free pelvic fluid. IMPRESSION IMPRESSION: 1. There are two complex, likely hemorrh agic left ovarian cysts. No ovarian torsion. 2. No other acute abnormality. BK CAM MD Constance Wolff PA-C IMArsh US ORDERABLES Abd/pelvis CT no contrast - Stone Protocol (12/25/2014 11:51 PM CDT) Anatomical Region Laterality Modality Abdomen/Pelvis, SUBRAD CT BODY, UMP CT ABDOMEN PELVIS Computed Tomography Specimen (Source) Anatomical Location Collection Method / Collectio n Time Received Time / Laterality Volume Impressions 12/26/2014 5:38 AM CDT IMPRESSION: 1. Probable 4 cm cyst in the left ovary. 2. Small amount of free pelvic fluid. 3. No bowel obstruction or inflammation. No other acute abnormality. BK CAM MD Narrative 12/26/2014 5:[address] ABDOMEN PELVIS W/O CONTRAST ??12/25/2014 11:51 PM ?? HISTORY: Left lower quadrant pain. Pain radiating to back. History of pulmonary embolus on Coumadin. Prior rig ht nephrectomy. TECHNIQUE: CT abdomen and pelvis without oral or intravenous contrast. COMPARISON: None. FINDINGS: Abdomen: The lung bases are unremarkable . Evaluation of the solid abdominal organs is limited by the lack of intravenous contrast. The liver, spleen, gallbladder, pancreas, ad renal glands and left kidney are normal in appearance. The right kidn ey is surgically absent. There is no abdominal or pelvic lymph node enl argement. There are atherosclerotic calcifications of the ao rta and its branches. No aneurysm. Pelvis: There is a probable cyst in the left ovary measuring approximately 4 cm. Uterus and right adn exa appear normal. Small amount of free fluid in the pelvis. No b owel obstruction or inflammation. No free intraperitoneal ga s. No evidence of hemorrhage. There is atrophy of the right abdominal wall musculature. Degenerative disease in the spine. Procedure Note Bk Cam MD - 12/26/2014Form atting of this note might be different from the original. CT ABDOMEN PELVIS W/O CONTRAST 12/25/2014 11:51 PM HISTORY: Left lower quadrant pain. Pain radiating to back. History of pulmonary embolus on Coumadin. Prior rig ht nephrectomy. TECHNIQUE: CT abdomen and pelvis without oral or intravenous contrast. COMPARISON: None. FINDINGS: Abdomen: The lung bases are unremarkable . Evaluation of the solid abdominal organs is limited by the lack of intravenous contrast. The liver, spleen, gallbladder, pancreas, ad renal glands and left kidney are normal in appearance. The right kidn ey is surgically absent. There is no abdominal or pelvic lymph node enl argement. There are atherosclerotic calcifications of the ao rta and its branches. No aneurysm. Pelvis: There is a probable cyst in the left ovary measuring approximately 4 cm. Uterus and right adn exa appear normal. Small amount of free fluid in the pelvis. No b owel obstruction or inflammation. No free intraperitoneal ga s. No evidence of hemorrhage. There is atrophy of the right abdominal wall musculature. Degenerative disease in the spine. IMPRESSION IMPRESSION: 1. Probable 4 cm cyst in the left ovary. 2. Small amount of free pelvic fluid. 3. No bowel obstruction or inflammation. No other acute abnormality. BK CAM MD Constance Wolff PA-C IMG CT ORDERABLES (ABNORMAL) INR (12/25/2014 10:48 PM CDT) athologist Signature INR 1.60 (H) 0.86 - 1.14 [facility] Specimen Anatomical Collection Method Collection Time Receive d Time (Source) Location / / Volume Laterality 12/25/2014 10:48 12/25/2014 PM CDT 10:58 PM CDT Constance Wolff PA-C LAB - BLOOD ORDERABLES Performing Organization Address City/State/ZIP Code Phon e Number [facility] [address] [place] [address] [place] [id number] [place] [address], [facility] [phone] Lactic acid (12/25/2014 10:48 PM CDT) P athologist Signature Lactic Acid 1.3 0.7 - 2.1 [place] mmol/L [facility] Specimen Anatomical Collection Method Collection Time Receive d Time (Source) Location / / Volume Laterality Blood specimen 12/25/2014 10:48 5 (specimen) PM CDT 10:57 PM CDT Constance Wolff PA-C LAB - BLOOD ORDERABLES Performing Organization Address City/State/ZIP Code Phon e Number [facility] [address] [place] [address] [facility] [address] [place] [address], [place] [phone] Lipase (12/25/2014 10:48 PM CDT) P athologist Signature Lipase 165 73 - 393 [place] U/L [facility] Specimen Anatomical Collection Method Collection Time Receive d Time (Source) Location / / Volume Laterality Blood specimen 12/25/2014 10:48 5 (specimen) PM CDT 10:58 PM CDT Constance Wolff PA-C LAB - BLOOD ORDERABLES Performing Organization Address City/State/ZIP Code Phon e Number [facility] [address] [place] [address] [facility] [address] [place] [address], [place] [phone] (ABNORMAL) Comprehensive metabolic panel (12/25/2014 10:48 PM CDT) Analysis Performed At Patho logist Time Signature Sodium 137 133 - 144 [place] mmol/L [facility] Potassium 4.3 3.4 - 5.3 [place] mmol/L [facility] Chloride 104 94 - 109 [place] mmol/L [facility] Carbon Dioxide 29 20 - 32 [place] mmol/L [facility] Anion Gap 4 3 - 14 [place] mmol/L [facility] Glucose 77 70 - 99 [place] mg/dL [facility] Urea Nitrogen 16 7 - 30 [place] mg/dL [facility] Creatinine 1.27 (H) 0.52 - [place] 1.04 mg/dL [facility] GFR Estimate 45 (L) >60 [place] mL/min/1.[address] Comment: Non GFR Calc GFR Estimate If Black 54 (L) >60 mL/min/1.7m2 F [facility] Comment: GFR Calc Calcium 8.2 (L) 8.5 - 10.1 mg/dL [facility] Bilirubin Total 0.2 0.2 - 1.3 mg/dL [facility] Albumin 3.7 3.4 - 5.0 g/dL [facility] Protein Total 7.1 6.8 - 8.8 g/dL [facility] Alkaline Phosphatase 87 40 - 150 U/L [facility] ALT 24 0 - 50 U/L [facility] AST 16 0 - 45 U/L [facility] Specimen Anatomical Collection Method Collection Time Receive d Time (Source) Location / / Volume Laterality Blood specimen 12/25/2014 10:48 5 (specimen) PM CDT 10:58 PM CDT Constance Wolff PA-C LAB - BLOOD ORDERABLES Performing Organization Address City/State/ZIP Code Phon e Number [facility] [address] [address] [facility] [address] [address], [place] [phone] (ABNORMAL) CBC with platelets + differential (12/25/2014 10:48 PM CDT) [facility] gist Method Time Signature WBC 10.7 4.0 - [place] 11.0 [facility] 10e9/L [facility] RBC Count 3.98 3.8 - 5.2 [place] 10e12/L [facility] Hemoglobin 11.9 11.7 - [place] 15.7 g/dL [facility] Hematocrit 34.5 (L) 35.0 - [place] 47.0 % [facility] MCV 87 78 - 100 [facility] MCH 29.9 26.5 - [place] 33.0 pg [facility] MCHC 34.5 31.5 - [place] 36.5 g/dL [facility] RDW 12.3 10.0 - [place] 15.0 % [facility] Platelet Count 290 150 - 450 [place] 10e9/L [facility] Diff Method Automated [employer] % Neutrophils 71.9 % [facility] % Lymphocytes 19.2 % [facility] % Monocytes 5.6 % [facility] % Eosinophils 2.7 % [facility] % Basophils 0.5 % [facility] % Immature 0.1 % [place] Granulocytes [facility] Absolute 7.7 1.6 - 8.3 [place] Neutrophil 10e9/L [facility] Absolute 2.1 0.8 - 5.3 [place] Lymphocytes 10e9/L [facility] Absolute 0.6 0.0 - 1.3 [place] Monocytes 10e9/L [facility] Absolute 0.3 0.0 - 0.7 [place] Eosinophils 10e9/L [facility] Absolute 0.1 0.0 - 0.2 [place] Basophils 10e9/L [facility] Abs Immature 0.0 0 - 0.4 [place] Granulocytes 10e9/L [facility] Specimen Anatomical Collection Method Collection Time Receive d Time (Source) Location / / Volume Laterality Blood specimen 12/25/2014 10:48 5 (specimen) PM CDT 10:58 PM CDT Constance Wolff PA-C LAB - BLOOD ORDERABLES Performing Organization Address City/State/ZIP Code Phon e Number [facility] [address] [address] [facility] [address] [place] [address], [place] [phone] HCG qualitative urine (12/25/2014 10:05 PM CDT) athologist Signature HCG Qual Urine Negative NEG [facility] Specimen Anatomical Collection Method Collection Time Receive d Time (Source) Location / / Volume Laterality 12/25/2014 10:05 12/25/2014 PM CDT 10:51 PM CDT Brian Neil DO LAB - URINE ORDERABLES Performing Organization Address City/State/ZIP Code Phon e Number [facility] [address] [place] [address] (ABNORMAL) *UA reflex to Microscopic (12/25/2014 10:05 PM CDT) [facility] gist Method Time Signature Color Urine Yellow [facility] Appearance Urine Clear [facility] Glucose Urine 100 (A) NEG mg/dL [facility] Bilirubin Urine Negative NEG [facility] Ketones Urine Negative NEG mg/dL [facility] Specific [place] 1.010 1.003 - [place] Urine 1.035 [facility] Blood Urine Negative NEG [facility] pH Urine 6.0 5.0 - 7.0 [place] pH [facility] Protein Albumin Negative NEG mg/dL [place] Urine [facility] Urobilinogen 0.2 0.2 - 1.0 [place] Urine EU/dL [facility] Nitrite Urine Negative NEG [facility] Leukocyte Negative NEG [place] Esterase Urine [facility] Source Midstream [place] Urine [facility] Specimen Anatomical Collection Method Collection Time Receive d Time (Source) Location / / Volume Laterality 12/25/2014 10:05 12/25/2014 PM CDT 10:13 PM CDT Gem Ribeiro MD LAB - URINE ORDERABLES Performing Organization Address City/State/ZIP Code Phon e Number [facility] [address] [place], [place] [address] documented in this encounter Visit Diagnoses Diagnosis Cyst of left ovary Other and unspecified ovarian cyst Abdominal pain in female documented in this encounter Administered Medications Inactive Administered Medications - up to 3 most recent administrations Medication Order MAR Action Action Date Dose Rate Site 0.9% sodium chloride BOLUS New Bag 12/25/2014 10:47 PM CDT 1,000 mLs Intravenous, 1,000 mL, ONCE, On Tue12/25/14 at 2240, For 1 dose HYDROmorphone (DILAUDID) injection 1 mg Given 12/26/2014 12:44 AM CDT 1 mg 1 mg, Intravenous, EVERY 15 MIN PRN, moderate to severe pain, Starting on Tue12/25/14 at 2304, For 3 doses Given 12/25/2014 11:25 PM CDT 1 mg Given 12/25/2014 11:07 PM CDT 1 mg HYDROmorphone (DILAUDID) injection 1 mg Given 12/25/2014 11:58 PM CDT 1 mg 1 mg, Intravenous, ONCE, On Tue12/25/14 at 2323, For 1 dose morphine (PF) injection 4 mg Given 12/25/2014 10:47 PM CDT 4 mg 4 mg, Intravenous, ONCE, On Tue12/25/14 at 2240, For 1 dose ondansetron (ZOFRAN) injection 4 mg Given 12/25/2014 10:47 PM CDT 4 mg 4 mg, Intravenous, ONCE, Administer over 2 Minutes, On Tue12/25/14 at 2240, For 1 dose oxyCODONE-acetaminophen (PERCOCET) 5-325 MG Given 03/2014 6:23 AM CDT 1 tablet per tablet 1 tablet 1 tablet, Oral, ONCE, On Cyndi 12/26/14 at 0621, For 1 dose, Maximum acetaminophen dose from all sources= 75 mg/kg/day not to exceed 4 grams documented in this encounter Active and Recently Administered Medications Times are shown in CDT. Scheduled Medication Order 12/24/2014 12/25/2014 12/26/2014 0.9% sodium chloride BOLUS (COMPLETED) 2 247 (New Bag - Provider: Gale Higuera RN) 0300 (Stopped - Provider: Katt Turner , VASQUEZ) Intravenous, 1,000 mL, ONCE, Tue12/25/14 at 2240, For 1 dose HYDROmorphone (DILAUDID) injection 1 mg (COMPLETED) 2358 (Given - Provider: Gale Higuera RN) 1 mg, Intravenous, ONCE, 1 dose, Tue12/25/14 at 2323 morphine (PF) injection 4 mg (COMPLETED) 2246 (Given - Provider: Gale Higuera RN) 4 mg, Intravenous, ONCE, Tue12/25/14 at 2240, For 1 dose ondansetron (ZOFRAN) injection 4 mg (COMPLETED) 224 (Given - Provider: Gale Higuera RN) 4 mg, Intravenous, ONCE, for 2 Minutes, Tue12/25/14 at 2240, For 1 dose oxyCODONE-acetaminophen (PERCOCET) 5-325 MG per tablet 1 tablet (COMPLETED) 0623 (Given - Provider: Katt Turner, VASQUEZ) 1 tablet, Oral, ONCE, Cyndi 12/26/14 at 062 1, For 1 dose, Maximum acetaminophen dose from all sources= 75 mg/kg/day not to exceed 4 grams PRN Medication Order 12/24/2014 12/25/2014 12/26/2014 HYDROmorphone (DILAUDID) injection 1 mg (COMPLETED) 2307 (Given - Provider: Gale Higuera RN)2325 (Given - Provider: Gale Higuera RN) 5950 (Given - Provider: Gale Higuera RN) 1 mg, Intravenous, EVERY 15 MIN PRN, 3 d oses, Starting 12/25/14 at 2304, Until Discontinued, moderate to severe pain documented in this encounter Care Teams Scourer Relationship Specialty Start Date End Date No Ref-Primary, Physician PCP - General 12/25/14 12/28/17 documented as of this encounter
--- OUTSIDE RECORDS SUMMARY | 2022-01-11 20:21 | XMS_ITS | Encounter Summary ---
:1965 Author Organization [facility] Address [address] [place] [address]. [place] [address] Care Team Providers Name Role Phone No Ref-Primary, Physician Primary Care Provider [phone] Reason for Visit Reason Onset Date Comments No Show Diabetes Education No Show 12/10/2016 Encounter Details Date Type Department Care Team Description 12/10/2016 [facility] Yadira Garcia No Show; [facility] Emmy Lewis RN Education; No Show Visit [id number] [facility] [phone] [place], [place] (Work) [phone] Social History Tobacco Use Types Packs/Day Years Used Date Smoking Tobacco: Never Smokeless Tobacco: Never Alcohol Use Standard Drinks/Week Comments Yes 0 (1 standard drink = 0.6 oz pure alcoho l) rare Sex Assigned at Date Recorded Female 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 documented in this encounter Plan of Treatment Upcoming Encounters Date Type Specialty Care Team Description 02/09/2022 Virtual Visit Surgery Mindi Llanes PA-C [address] [place] [address] (Wo rk) documented as of this encounter Visit Diagnoses Diagnosis NO SHOW - Primary documented in this encounter Care Teams Fisher Quahog Relationship Specialty Start Date End Date No Ref-Primary, Physician PCP - General 12/25/14 12/28/17 documented as of this encounter
--- OUTSIDE RECORDS SUMMARY | 2022-01-11 20:21 | XMS_ITS | Clinical Summary ---
:1965 Author Organization [facility] [place] [address] Care Team Providers Name Role Phone None Unavailable Unavailable Pcp, No Primary Care Provider Unavailable Allergies Active Allergy Reactions Severity Noted Date Comments Ibuprofen Stomach Upset 11/22/2013 Medications Medication Sig Dispensed Refills Start Date End Date Status aspirin enteric Take 1 tablet by 0 05/31/2013 Active coated 81 mg mouth once daily tabletIndications: with a meal. Diabetes mellitus type 1 (HC) omeprazole (PRILOSEC) Take 1 capsule by 180 capsule 3 06/01/19 14 Active 20 mg mouth 2 times capsuleIndications: daily before GERD meals. (gastroesophageal reflux disease), Cricopharyngeal spasm Insulin [place], For administering 1 box 11 03/01/2014 Active Disposable, (NOVOFINE insulin at home. 30) 30 x 1/3 Indications: Diabetes mellitus type 1 (HC) lancets (ACCU-CHEK Dispense item 102 Each 1 01/12/2016 Active FASTCLIX)Indications: covered by pt ins. Type 1 diabetes E10.9 IDDM type I mellitus without - Test up to 5 complication (HC) times/day. Reason: High A1C pregabalin (LYRICA) Take 1 capsule by 180 capsule 3 05/04/2016 Active 75 mg mouth 2 times capsuleIndications: daily. Diabetic peripheral neuropathy (HC) citalopram (CELEXA) TAKE ONE TABLET BY 90 tablet 0 10/13/2016 Active 40 mg MOUTH ONCE DAILY tabletIndications: Depression with anxiety GLUCAGON EMERGENCY INJECT 1 MG 2 Each 2 10/26/2016 Active KIT, HUMAN, 1 mg INTRAMUSCULAR ONE kitIndications: Type TIME IF NEEDED FOR 1 diabetes mellitus LOW BLOOD SUGAR with other specified AND UNABLE TO complication (HC) SWALLOW amitriptyline TAKE ONE TABLET BY 90 tablet 3 11/08/2016 Active (ELAVIL) 25 mg MOUTH AT BEDTIME tabletIndications: Other chronic pain ACCU-CHEK RADHA PLUS TEST UP TO 5 500 Strip 3 01/29/2017 Active TEST STRP TIMES/DAY stripIndications: Type 1 diabetes mellitus without complication (HC) tolterodine (DETROL) TAKE ONE TABLET BY 180 tablet 0 7 Active 2 mg MOUTH TWICE DAILY tabletIndications: Urinary incontinence, unspecified type topiramate (TOPAMAX) [The details of 180 tablet 0 07/04/2017 Active 100 mg the medication are tabletIndications: not available Intractable migraine because there are without status pending changes by nini, a home health unspecified migraine clinician.] type levothyroxine Take 175 mcg by 0 Active (SYNTHROID) 175 mcg mouth once daily. tablet Every day but Tuesday, on Tuesday she takes 1/2 tablet (87.5 mcg) lisinopril (PRINIVIL; Take 20 mg by 0 Active ZESTRIL) 20 mg tablet mouth once daily. mirabegron Take 25 mg by 0 Activ e EXTENDED-release mouth once daily. (MYRBETRIQ) 25 mg tablet furosemide (LASIX) 80 Take 1 tablet by 180 tablet 3 09/19/2017 Active mg tabletIndications: mouth once daily Peripheral edema if needed. insulin degludec Inject 40 Units 0 09/22/2017 Active (TRESIBA) 200 unit/mL subcutaneous every (3 mL) subcutaneous morning. pen insulin aspart U-100 Inject 0-5 Units 0 09/22/2017 Active (NOVOLOG) 100 unit/mL subcutaneous 3 solution for times daily before injection meals. Sliding scale > 130 units, 2 units for every 30 mg/dL glucose over 130 insulin aspart U-100 Inject 0 09/22/2017 Active (NOVOLOG) 100 unit/mL subcutaneous 3 solution for times daily before injection meals. 2 units for every 10 grams of carbs naloxone (NARCAN) 0.4 Inject 0.4 mg 0 09/09/2017 Active mg/mL injection intramuscular. To use if needed for opiod overdose acetaminophen Take 1,000 mg by 0 09/26/2017 Active (TYLENOL EXTRA mouth every 6 STRGTH) 500 mg tablet hours if needed. for Pain. Max acetaminophen dose: 4000mg in 24 hrs. calcium Take 1 tablet by 0 09/22/2017 Ac tive carbonate/vitamin D3 mouth once daily. (CALCIUM + D ORAL) BIOTIN ORAL Take 1 tablet by 0 09/22/2017 Active mouth once daily. prochlorperazine Take 10 mg by 0 09/29/2017 Active (COMPAZINE) 10 mg mouth every 6 tablet hours if needed for Nausea/Vomiting. oxyCODONE Take 5 mg by mouth 0 09/29/2017 Active (ROXICODONE) 5 mg every 4 hours if capsule needed for Pain. estradiol (ESTRACE) Insert 0.1 g into 3 10/28/2017 Active 0.1 mg/g vaginal the vagina once cream weekly. niacin 100 mg tablet Take by mouth. 0 Active pantoprazole Take 20 mg by 0 10/13/2017 Ac tive (PROTONIX) 20 mg mouth once daily. tablet sennosides (SENNA) Take 2 tablets by 0 Active 8.6 mg tablet mouth once daily if needed. Active Problems Problem Noted Date Cellulitis of left ring finger 09/13/2017 MRSA infection 09/12/2017 Oral pharyngeal candidiasis 06/30/2016 Overview: 06/30/2016 treated with Mycelex troches. Community acquired pneumonia 06/28/2016 Overview: 06/28/2016 chest radiograph: Reticulonodul ar airspace opacities throughout the right lung, concerning for pneumonia. The left lung appears clear. No pleural effusion. No pneumothorax. The heart is normal in size. Severe sepsis with acute organ dysfunction 06/28/2016 Overview: Formatting of this note is dif ferent from the original. 06/28/2016 lactate 5.7. CREATININE (mg/dL) Date Value 06/28/2016 2.91 (H) Acute kidney injury 06/28/2016 Overview: Formatting of this note is dif ferent from the original. 11/28/2015 Creatinine 1.8 (baseline). CREATININE (mg/dL) Date Value 06/28/2016 2.91 (H) CREATININE (mg/dL) Date Value 07/01/2016 1.01 Diabetic ketoacidosis without coma associated with typ e 1 diabetes 06/28/2016 mellitus Chronic kidney disease, stage 3 06/28/2016 Overview: Formatting of this note is dif ferent from the original. 06/28/2016 Baseline Creatinine 1.8. CREATININE (mg/dL) Date Value 07/01/2016 1.01 Herpes simplex vulvovaginitis 05/07/2016 Anxiety 11/06/2015 Peripheral edema 11/06/2015 Diastolic dysfunction without heart failure 11/06/2015 Overview: 11/06/2015 echocardiogram: Normal left ve ntricular size.Normal left ventricular wall thickness. Hyperdynamic left ventricular systolic f unction with an estimated ejection fraction of 70-75%. Slight increase in LVOT with valsalva (h yperdynamic LV function). No regional wall motion abnormalities. Normal right ventricular size and functi on. Pseudonormal filling pattern of the le ft ventricle for age (stage 2 diastolic dysfunction). Normal right ventricular size and functi on. Trace aortic regurgitation. Mild mitral regurgitation. Trace tricuspid regurgitation.Estimated RV systolic pressure of 17.5 mmHg + RA pressure. Estimated EF: 70-75% Diabetes mellitus type 1, uncontrolled 11/05/2015 Overview: Formatting of this note is dif ferent from the original. HEMOGLOBIN A1C MONITORING (POCT) (%) Date Value 04/08/2016 10.0 (H) 06/05/2014 8.6 (H) Lantus and Novolog. Obesity 11/05/2015 Overview: 06/28/2016 Body mass index is 30.68 kg/(m^ 2). 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 Has had 2-3 seizure s over the last 8-9 years. Depression with anxiety 05/31/2013 Overview: Med trials: Zoloft, wellbutrin, prozac, ambien. Klonopin until 11/2013 and was switched t o hydroxyzine with fair benefit. Trazodone doesn't help. Migraines 05/31/2013 Incontinence of urine 05/31/2013 Cricopharyngeal spasm 05/31/2013 Overview: Seen on barium swallow, started on Prilo sec 20 mg twice daily. GERD (gastroesophageal reflux disease) 05/31/2013 Overview: On Prilosec 20 mg twice daily. Diabetes mellitus type 1 Overview: Diagnosed at age 8. History of neuropath y. Having frequent hypoglycemic episodes - 1-2 times daily and will drop down in to the mid 20-30's at times., 40-50's not unusual. Has cut back on her Lantus to 48 units at at bedtime. Developing hypog lycemic unawareness. Has a consult with Dr Russell in a few week. Met with Naveen, the cosmetology educator, ~2 months ago. Hypothyroidism Overview: Formatting of this note is dif ferent from the original. Levothyroxine. TSH (uIU/mL) Date Value 05/04/2016 0.24 (L) Knee osteoarthritis Overview: bilateral, has had injections. Sobia damon. Pain 7-11/04. Can't be seen at [facility], owes them money. They suggested 2 total knee replacements. Has osteophytes and bone spurs. Cortisone injections last 1-2 weeks. S/p nephrectomy Overview: Congenital disorder of kidney. Resolved Problems Problem Noted Date Resolved Date Chest pain at rest 11/05/2015 06/28/2016 Chronic kidney disease (CKD), Stage 3 11/05/2015 Overview: Formatting of this note is dif ferent from the original. CREATININE (mg/dL) Date Value 11/05/2015 1.86* Anticoagulation monitoring, INR range 2-3 06/17/2014 04/18/2015 Rib fractures 06/07/2014 11/05/2015 Altered level of consciousness 06/05/2014 6 Hypoglycemia due to insulin 02/03/2014 11/05/2015 Seizure 02/03/2014 02/03/2014 Overview: Due to hypoglycemia with BS 39. Chronic renal disease, stage III 02/03/2014 017 Overview: BUN and creatinine are 24 and 1.55 respe ctively, with an estimated creatinine clearance of 36 mL per minute. Her previous BUN and creatinine are 14 December 2013 was 23 and 1.45, with a creatinine fahad reggie of 39 mL per minute. Prior to that on 18 June 2013 her BUN was 11 creatinine was 1.0, with an estimate creatinine clearance of 59 mL per minute. She has a history of a nephrectomy for congenital abnormality in 2005. Apparently the kidn ey looked very abnormal and there was pus in it the at the time of emergency surgery. Chronic constipation 05/31/2013 06/28/2016 Anxiety 05/31/2013 05/31/2013 control 05/31/2013 06/28/2016 Immunizations Name Administration Dates Next Due Hepatitis B (Adult) 04/16/2014, 10/18/2013, 05/31/2013 Influenza, IIV4 01/12/2016, 12/26/2013 Td, Preservative Free (age >= 7 Years) 01/12/2016 Tdap 08/24/2005 Tuberculin (PPD) 05/31/2013 Family History Medical History Relation Name Comments Diabetes Father Other Father emphysema, AAA Heart Disease Maternal Grandmother Good Health Mother Relation Name Status Comments Father 2005 Maternal Grandmother Mother Social History Tobacco Use Types Packs/Day Years Used Date Never Smoker Smokeless Tobacco: Never Used Tobacco Cessation: Counseling Given: Yes Alcohol Use Standard Drinks/Week Comments No 0 (1 standard drink = 0.6 oz pure alcoho l) very rare Alcohol Habits Answer Date Recorded How often do you have a drink containing alcohol? Not asked How many drinks containing alcohol do you have on a typical Not asked day when you are drinking? How often do you have six or more drinks on one occasion? No t asked Comment: very rare 02/03/2014 Sex Assigned at Date Recorded Not on file Obstetrics History Para Term AB IAB SAB Ectopic Multiple Living Live Births 0 0 0 0 0 0 0 0 0 0 Last Filed Vital Signs Vital Sign Reading Time Taken Comments Blood Pressure 122/60 10/31/2017 10:47 AM CDT Pulse 78 10/31/2017 10:47 AM CDT Temperature 36.9 ??C (98.4 ??F) 10/31/2017 10:47 AM CDT Respiratory Rate 16 10/28/2017 3:56 PM CDT Oxygen Saturation 93% 10/28/2017 3:56 PM CDT RA at r est Inhaled Oxygen Concentration - - Weight 111.1 kg (245 lb) 10/31/2017 10:47 AM CDT Height 180.3 cm (5' 11) 09/12/2017 9:22 PM CDT Body Mass Index 34.17 09/12/2017 9:22 PM CDT Plan of Treatment Health Maintenance Due Date Last Done Comments COVID-19 vaccine series (#1) 1965 Hepatitis C screening for age 1202/28/1983 18-79 Colonoscopy through age 75 2010 Mammogram for age 45-75 2010 Zoster (shingles) series for age 1202/28/2015 50+ (1 of 2) Depression screening for age 12+ 05/04/2017 05/04/2016, , 01/12/2016, Additional history exists BMI (ht and wt on same day) for 06/28/2017 06/28/2016, 12/26, age 18+ 11/05/2015, Additional history exists Lipids for age 45-75 06/22/2018 06/22/2013 Pap test for age 21-65 06/09/2020 06/09/2017, 06/09/2017 Influenza for age 50-64 11/26/2021 01/12/2016, 12/26/2013 Tetanus booster 01/11/2026 01/12/2016, 08/24/2005 Tdap Completed 08/24/2005 Results Not on filefrom Last 3 Months Additional Health Concerns Infection Onset Date Last Indicated MRSAComment: Order contact precautions. 06.29.2016 patient 0 06/29/2016 06/29/2016 not eligible for surveillance cultures due to receiving antibiotics. Nares surveillance cultures needed to clear patient. #1 #2 Insurance Payer Benefit Plan / Subscriber ID Effective Dates Phone Addre ss Type Group WC WORKERS COMP WC WORKERS COMP 2013-Presen t WC WORKERS COMP WC [facility] [address] xxxxxxxxxxx-0001 2013-Prese [address] [address] [place] [address] [employer] [id number] 2014-Prese [address] [place] [address] [employer] [place] [employer] [id number] 2015-Presen [address] [place] [address] [employer] [id number] Effective for [address] [address] [place] [address] [employer] OF [id number] 2015-Presen [address] [place] [address] [employer] OF [id number] 2012-Prese [address] [place] [address] Marnie Duvall Motor Vehicle Self 1965 [id number] [address] (Home) [facility] [place] [address] [facility]orge [employer] Employer 03/28/2000 ATTN [employer] x5 (Home) PAYABLE [phone] [address] ([place]) [place] [address] Advance Directives Latest Code Status on File Code Status Date Activated Date Inactivated Comments Full Code 09/14/2017 9:32 AM 09/19/2017 11:28 PM Code Status Discussion: Discussed Full Code 06/28/2016 3:13 PM 07/01/2016 4:08 PM Code Status Discussion: Not Discussed Full Code 11/06/2015 12:29 AM 11/06/2015 4:44 PM Code Status Discussion: Not Discussed Full Code 06/05/2014 10:13 PM 06/08/2014 4:06 PM Full Code 02/16/2014 12:07 AM 02/22/2014 3:56 PM Care Teams Chief Of Staff Doctor Relationship Specialty Start Date End Date Pcp, No PCP - General 12/06/18 . None 01/04/13 .
--- OUTSIDE RECORDS SUMMARY | 2022-01-11 20:21 | XMS_ITS | Encounter Summary ---
:1965 Author Organization [place] Address [facility] [place] [address] Care Team Providers Name Role Phone Unavailable Primary Care Provider Unavailable Encounter Details Date Type Department Care Team Description 12/15/[address] [facility] Anthony Conway [facility] Results MD Naveen EMERGENCY PHYSIC [facility] [address] [place], [place] [address] (Wo rk) Social History Tobacco Use Types Packs/Day Years Used Date Smoking Tobacco: Never Assessed Sex Assigned at Date Recorded Female 03/04/2020 12:33 PM [employer] documented as of this encounter Progress Notes Jose Conway MD - 12/16/2010 4:17 PM CDT FINAL CHIEF COMPLAINT: Knee pain. HISTORY OF PRESENT ILLNESS: Amaury Hughes is a 45-year-old woman with past medical history significant for bilateral knee pain and history of arthritis in both knees with severe knee pain that has been ongoing for years. She is coming in today because she states that it has been getting worse and itmakes it almost intolerable for her work. 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 She denies any abdominal pain. Deniesany problems with urination. She states her diabetes is under good control but that she is unable tokeep working at this capacity due to the severe pain from standing for long periods of time. She denies any other significant medical problems besides diabetes and congenital single kidney. Denies smoking, drinking other drugs. MEDICATIONS: None. ALLERGIES: None. REVIEW OF SYSTEMS: A 12-point review of systems negative with the exception of musculoskeletal knee pain, bilateral knees. PHYSICAL EXAMINATION: GENERAL: This is a healthy-appearing woman with vitals that were appropriate and stable throughout her stay here. SKIN: Showed no rashes or abrasions visible skin. HEENT: Head is normocephalic, atraumatic. Pupils are equal, round, reactive to light bilaterally. Nose is symmetric. RESPIRATORY: Lungs are clear to auscultation bilaterally, no wheezes. ABDOMEN: Soft, nondistended, nontender. MUSCULOSKELETAL: Significant for extreme tenderness over both knees. The patient states this is the same as it has been for some time. Good dorsal ourselves pedis pulses and sensation intact in both feet and strength intact to dorsal flexion and plantar flexion and reflexes intact patellar and posterior tibial. MEDICAL DECISION MAKING: This is a 45-year-old female with bilateral knee pain. Given her long history of similar symptoms I feel this is an exacerbation of a chronic problem and therefore was not required extensive workup of this time, but does need symptomatic control. The patient has had no fevers making infection unlikely, especially since it is bilateral and no new trauma and is able to bear weight on both legs, making fracture unlikely. Most likely exacerbation of her chronic arthritis. ASSESSMENT: Pain in bilateral knees. DISPOSITION: Follow up with Orthopedics in the next few days. Home with Percocet and instructions tostop ibuprofen and return to the ED with worsening symptoms. MEDICAL DECISION MAKING: Camille Harrington is a 41-year-old female with foot drop in neuropathic leg pain with vital signs that were appropriate and stable throughout her stay here and physical exam that wasremarkable only for slight weakness in dorsiflexion and significant what appeared to be neuropathic pain in the posterior leg. MRI was negative for any impingement or compression of the nerves. She also complained of urinary incontinence; however, after having her urinate and checking a post residual,she only had 10 mL of urine in her bladder making cauda equina extremely unlikely. She has had no fevers, chills or point tenderness over the spine, also making abscess unlikely. I was concerned for pos sible peripheral nerve injury but the patient was able to stand and bare weight on the leg; however,she stated it was painful to dorsiflex and said that she had no foot drop when she was wearing regular shoes. All these symptoms and workup being negative seemed unusual and decision was made to discharge home and follow up with Neurology in the next 1-2 days. She was given a work note in order to make that appointment and told to return to the ED with any worsening symptoms. She was given crutches for ambulation and percocet and ibuprofen to be taken for only 3 days and then to stop all NSAIDs due to the other risks of that medication.. ASSESSMENT: Leg pain or foot drop. PLAN: Follow up with Neurology tomorrow. Plan of care was discussed with a competent patient who conferred understanding and agreement. Her questions were answered and she was able to describe the signs and symptoms for which to seek further acute care. I warned her about the potential seriousness of her condition and the dangers of failing to follow up in a timely manner including, but not limited to severe joint infection, or inability towalk. I also warned her about the potential side effects of the medication I have prescribed, including but not limited to anaphylaxsis and to seek immediate medical care or to call 911 if they have any symptoms as we discussed. Electronically signed on 12/16/2010 16:16 by JOSE CONWAY MD MT: [id number] Name: AMAURY HUGHES MRN: [id number] Account: [id number] : 1965 Visit Date: 12/15/2010 Document: [id number] documented in this encounter Plan of Treatment Upcoming Encounters Date Type Specialty Care Team Description 02/09/2022 Virtual Visit Surgery Mindi Llanes PA-C [address] [place] [id number] (Wo rk) documented as of this encounter Visit Diagnoses Not on filedocumented in this encounter
--- OUTSIDE RECORDS SUMMARY | 2022-01-11 20:25 | XMS_ITS ---
:1965 Author Name Lulu Snow Care Team Providers Name Role Phone Lulu Snow Unavailable Unavailable PROBLEMS Type Condition ICD9-CM Code [id number]-BU Code Onset Condition SNO MED Code Dates Status Problem Urge incontinence N39.41 Active 87 [id number] ALLERGIES Substance Reaction Event Type Date Status Ibuprofen Unknown Drug Allergy Jan, Active ENCOUNTERS Encounter Location Date Diagnosis [facility] [address], [place], [place] [id number] IMMUNIZATIONS No Known Immunizations SOCIAL HISTORY Qualifiers Date Never Smoker REASON FOR REFERRAL Reason Urge Incontinence Referring Provider First Name Lulu Referring Provider Last Name Gwendolyn Referring Provider Specialty Group Care Worker and [facility]necol[facility] Referred Organization [facility] Referred Provider Huyen Baird Referred Address [address] [place], [id number] Referred Provider Specialty Group Care Worker and gynecolog ist FUNCTIONAL STATUS PLAN OF CARE Activity Details Referral Urge Incontinence, Huyen cavanaugh, [address] [place], [place], [phone], VITAL SIGNS MEDICATIONS Medication Instructions Dosage Frequency [...] Dates [facility] [address] [facility] self Marnie [id number] [phone] Jadiel TSANG [phone] MEDICAL (GENERAL) HISTORY Type Description Date Medical [...]
[2022-01-11 20:41] LABS: Chloride* 105 mmol/L (96-114); Sodium* 138 mmol/L (135-149)
[2022-01-11 20:42] LABS: Potassium* 4.4 mmol/L (3.6-5.1)
[2022-01-11 20:43] LABS: Albumin* 4.5 g/dL (3.3-5.0)
[2022-01-11 20:44] LABS: Basophils Percent Auto 0.9 % (0.0-3.0); Creatinine* 1.5 mg/dL (0.5-1.5); Est. Creatinine Clearance* 46.81; Estimated Glomerular Filt Rate 41 ml/min; Hematocrit 37.2 % (33.0-51.0); Lipase* 43 U/L (23-300); Mean Corpuscular HGB Conc 32 gm/dL (32-36); Mean Corpuscular Hemoglobin 30 pg (26-34); Mean Corpuscular Volume 93 fL (80-100); Monocytes Percent Auto 7.4 % (0.0-11.0); Neutrophils Percent Auto 47.3 % (42.0-72.0); Platelet Count* 267 K/uL (140-440); Red Blood Count 4.02 m/uL (4.00-5.20); Slide Review Reflex No; White Blood Count* 5.55 K/uL (4.50-11.00)
[2022-01-11 20:45] LABS: Alkaline Phosphatase* 91 U/L (40-150); Aspartate Amino Transferase* 30 U/L (12-35); Bilirubin Direct* 0.1 mg/dL (0.0-0.5); Bilirubin Total* 0.4 mg/dL (0.1-1.5); Blood Urea Nitrogen* 21 mg/dL (7-30); Calcium* 9.5 mg/dL (8.4-10.6); Carbon Dioxide* 26 mmol/L (20-32); Glucose* 123 mg/dL (60-115); Total Protein* 7.5 g/dL (6.0-8.3)
[2022-01-11 20:46] LABS: Alanine Aminotransferase* 24 U/L (4-35)
[2022-01-11 21:00] VITALS: PULSE 76; RESP 16; TEMP 36.7; O2SAT 99
== END 2022-01-11 21:45 | disposition home or self-care (01) ==
PROVIDERS: Emergency Provider Emergency Medicine Emergency Medical Services; PCP Family Medicine
DX: K80.20 Calculus of gallbladder without cholecystitis without obstruction (principal)
CPT/HCPCS: 36415; 76705; 80048; 80076; 83690; 85025; 99284

== ENCOUNTER 2022-01-21 10:22 | Day surgery (SDC) | payer OTHER, SELFPAY ==
[2022-01-21] VITALS (11 sets, daily range): BP systolic 110–128; BP diastolic 48–59; PULSE 66–75; RESP 14–18; TEMP 35.8–36.4; O2SAT 95–98
[2022-01-21] MEDS: LACTATED RINGERS 1000 ML 1,000 ML 100 ML IV (10:30)
--- NOTE | 2022-01-21 11:10 | SUR.PREOP ---
PT WITH CONTINUOUS INSULIN PUMP AND CONT. SENSOR IN PLACE. TO BE REMOVED IN OR NEEDED
--- NOTE | 2022-01-21 11:11 | SUR.PREOP ---
UPON ADMIT PT HAS NEGATIVE COVID TEST FROM HOME
[2022-01-21] MEDS: ETHYL CHLORIDE 1 APPLICATION 1 APPLIC TOPICAL (11:12)
[2022-01-21] MEDS: SODIUM CHLORIDE 0.9 % (FLUSH) 10 ML SYRINGE IVF (11:12)
[2022-01-21] MEDS: lidocaine HCL 2 % MULTIDOSE 20 ML VIAL 10 ML INJECTION (12:40)
[2022-01-21] MEDS: BUPIVACAINE 0.5% 30 ML INJECTION (12:40)
--- NOTE | 2022-01-21 12:51 | SUR.OPER ---
Pt. family updated by phone call at 12:52.
--- NOTE | 2022-01-21 14:52 | SUR.OPER ---
pt. family updated by phone call at 14:53.
[2022-01-21] MEDS: IOPAMIDOL 50 ML VIAL INJECTION (15:58)
--- NOTE | 2022-01-21 16:13 | W.ANESCHARGE ---
Anesthesia Charges Start Date/Time Anesthesia Start Date: 01/21/22 Anesthesia Start Time: 12:10 Stop Date/Time Anesthesia Stop Date: 01/21/22 Anesthesia Stop Time: 16:24 Summary Emergency: No
--- NOTE | 2022-01-21 16:22 | PM.GSPRC ---
Operative Note Date of procedure: 01/21/22 Procedure Description: I was asked by Dr. Solorzano to intraoperatively to assist with a difficult laparoscopic cholecystectomy. When I entered the operating room, laparoscopic ports were replaced and the liver was retracted cephalad. The gallbladder was intrahepatic and some dissection was made in the area of triangle of [place]. A small artery that was thought to be a cystic artery was already divided in clips were visualized. This was overlying the gallbladder infundibulum. The cystic duct was not visualized clearly. The gallbladder dissection was started with a dome down technique. We continued to mobilize the gallbladder medially, laterally, and superiorly. This was done with hook cautery and bluntly. We avoided the dissection near the cystic duct since the tissues appear to be scarred down and difficult to mobilize and separate. We continued with the dome down technique with hook cautery. Multiple openings were made in the gallbladder with this dissection and the plane between the liver and gallbladder was difficult to define. Multiple small black stones came out from the gallbladder and those were retrieved and removed from the abdomen. We were able to dissect the gallbladder down to infundibulum, we elected not to proceed with our dissection further to avoid injury to the common bile duct. The gallbladder was then tied with 0-0 PDS Endoloop at the level of infundibulum. A second PDS Endoloop was placed just distal to that. The gallbladder was then amputated with hook cautery distal to both of the Endoloops. The gallbladder was then placed in the Endo-Catch bag and removed through the infraumbilical incision. The gallbladder fossa was then examined and no bleeding was noted. Our endoloops were in good position. A drain was placed in the subhepatic space. At this time Dr. Solorzano proceeded with closure of the abdomen. Anesthesia: GETA Surgeon: Tamar Solorzano MD Estimated blood loss (mL): 10 Condition: stable Disposition: PACU
--- NOTE | 2022-01-21 16:23 | P.GSOP_ITS ---
Operative Note Date of procedure: 01/21/22 Type of Procedure: Laparoscopic cholecystectomy Procedure Description: After discussing the risks and benefits of the procedure, the patient signed informed consent.? The operative site was marked and the patient was brought to the operating room and placed on the operating table in supine position.? Care was taken to pad the patient's pressure points.?? The patient was then intubated by anesthesia.?? The operative site was then prepped and draped in the usual sterile fashion.? A time-out was then performed. Entrance to the abdomen was gained via a son technique at the umbilicus. Cautery was used to dissect the subcutaneous fat down to the fascia. The fascia was grasped between 2 Khalif clamps and a scissor was used to incise this. The peritoneal cavity was entered. A 0 Vicryl suture was then placed on the fascia. Lacy port was then placed in the abdomen was insufflated. The patient did not have significant intra-abdominal adhesions to her prior nephrectomy scar. 5 mm ports were placed in the left upper quadrant and 2 in the right upper quadrant, all along the costal margin. The patient was then placed in reverse Trendelenburg position with the right side up. There was a moderate amount of intra-abdominal omental fat which obscured the view. An additional 5 mm port was placed in the right mid abdomen and through this, a liver retractor was then placed to help retract the omentum away from the gallbladder. The gallbladder fundus was grasped and retracted cephalad. The infundibulum was grasped. The gallbladder appeared to be intrahepatic. The peritoneum over the gallbladder was incised. Dissection was taken along the peritoneal edge toward the liver. The peritoneum overlying the gallbladder was thickened and [place]. This did not dissect easily. I identified what appeared to be the infundibulum I continued to take my dissection down with a combination of hook cautery and blunt dissection. The gallbladder was very difficult to dissect. The tissue planes were not easily identified due to chronic inflammation. The tissue was very tough and thickened. I was unable to dissect this with either a hook cautery or [place] dissector. The gallbladder actually pulled away from the liver medially, however it tore the liver capsule. Fortunately this did not bleed. I attempted to reestablish the appropriate plane on the cystic plate, however this tissue was densely adherent and the gallbladder was torn. I attempted to dissect on the lateral aspect of the gallbladder and, similarly, the plane between the liver and gallbladder was not able to be established without tearing the gallbladder. Anteriorly I dissected over what was appearing to be the infundibulum and I was able to identify and dissect out the cystic artery in its usual location. This was on the gallbladder itself near the infundibulum. I dissected this out and clipped this with 2 clips proximally 1 clip distally. This was then divided with scissors. The artery was then dissected downward toward the cystic duct. I continued my dissection near the infundibulum in an attempt to find the cystic duct. The gallbladder extended deep intrahepatically. I attempted to dissect posterior to the gallbladder higher up and again attempted to divide the gallbladder from the cystic plate posteriorly. Again, the tissue was densely adherent to the liver and I was unable to dissect either sharply or bluntly without making holes in the gallbladder, or tearing the liver capsule. I then attempted a dome down approach. I incised the peritoneum overlying the gallbladder at the dome and, retracting the liver superiorly, pulled the gallbladder inferiorly and using cautery I was able to dissect the gallbladder from the liver. As I dissected inferiorly, however the gallbladder appeared to dive deeper within the liver. A small hole was again made in the gallbladder and I was able to visualize inside the gallbladder with the cystic duct heading posteriorly distally. At this point, I called my partner Dr. Madrid to assist in the case as the inflammation made the anatomy difficult to identify and dissection was very difficult. With me, now retracting the gallbladder inferiorly and Dr. Madrid able to retract the liver superiorly, Dr. Madrid then, using cautery was able to continue to dissect the gallbladder in the dome down technique. The plane between the liver and the gallbladder continued to be poorly defined, however when visualizing inside the gallbladder, we could be sure that we were dissecting on the gallbladder and not yet at the area of the cystic duct. There were continued small openings created in the gallbladder with this technique. Small stones spilled out and these were all retrieved and removed from the abdomen. Once we reached the area of the infundibulum, we elected not to proceed with dissection any further to avoid injury to the common bile duct. At this point, because of the difficulty of the dissection, I elected to not proceed with cholangiogram given that the patient's LFTs were within normal limits. I then retracted the gallbladder while Dr. Madrid was able to place an 0 PDS endoloop around the distal aspect of the gallbladder, around the lowest hole created in the gallbladder. A 2nd endoloop was then placed. Dr. Madrid then amputated the gallbladder with hook cautery. This was then placed in Endo-Catch bag and removed from the abdomen. The gallbladder fossa was examined and no bleeding was noted. The Endo loops appeared to be in good position. I then placed a 19 [place] channel drain in the right upper quadrant in the gallbladder fossa given the difficulty of dissection, to ensure that if the cystic duct/gallbladder stump leaked that we would detect any bile leak early able to intervene. The ports were then removed and the abdomen desufflated. The umbilical port fascia was then closed with the previously placed 0 Vicryl suture. The skin was closed with absorbable subcuticular suture. Sterile dressings were then applied. Instrument sponge and needle counts were correct at the end of the case. The patient was then woken and transferred to the PACU in stable condition. ? The patient tolerated the procedure well. Findings: 1. Gallbladder with chronic inflammation. Difficult dissection 2. Gallstones 3. Nineteen [place]onese right upper quadrant channel drain placed Surgeon: Tamar Solorzano MD Co-Surgeon: Kenyatta Madrid MD Estimated blood loss (mL): 10 Condition: stable Disposition: PACU
--- NOTE | 2022-01-21 16:27 | W.ANESCHARGE ---
Anesthesia Charges Start Date/Time Anesthesia Start Date: 01/21/22 Anesthesia Start Time: 12:10 Stop Date/Time Anesthesia Stop Date: 01/21/22 Anesthesia Stop Time: 16:24 Summary Emergency: No
[2022-01-21] MEDS: fentaNYL 100 MCG/2 ML inj 50 MCG IVP ×2 (16:37→16:49)
[2022-01-21] MEDS: HYDROCODONE-ACETAMIN 5-325 MG 1 TAB PO (17:41)
[2022-01-21] MEDS: METOCLOPRAMIDE HCL 5 MG/ML INJ 10 MG IVP (18:02)
--- NOTE | 2022-01-21 18:18 | SUR.PHASEII ---
1800 Patient ready for discharge. She is hooked up to her insulin pump. She is very comfortable with her discharge instructions. 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
== END 2022-01-21 18:23 | disposition home or self-care (01) ==
PROVIDERS: PCP Family Medicine; Visit Provider Surgery
PROC: 0FT44ZZ Resection of Gallbladder, Percutaneous Endoscopic Approach (ICD-10-PCS; CPT 47563; principal; 2022-01-21 11:30)
DX: K80.10 Calculus of gallbladder with chronic cholecystitis without obstruction (principal)
CPT/HCPCS: 47562; 00790; 82962; 88304; A9270; J0131; J0330; J1100; J2250; J2370; J2405; J2704; J2710; J2765; J3010; J3370; J3490; J7050; J7120

== ENCOUNTER 2022-01-24 16:28 | Emergency (ER) | payer OTHER, SELFPAY ==
[2022-01-24] VITALS (37 sets, daily range): BP systolic 76–178; BP diastolic 35–95; PULSE 89–120; RESP 16; TEMP 36.6–36.8; O2SAT 78–99; BMI 31.4
--- NOTE | 2022-01-24 16:55 | CRLHL7_ITS ---
For Patients: As a result of the Century Cures Act, medical imaging exams and procedure reports are released immediately into your electronic medical record. You may view this report before your referring provider. If you have questions, please contact your health care provider. INDICATION: Septic, generalized pain, status post cholecystectomy. COMPARISON: CT dated 05/29/2019, and correlation with ultrasound dated 01/11/2022. FINDINGS: There is a postsurgical drain entering the right upper quadrant, and terminating in the region of the falciform ligament after coursing through the gallbladder fossa. Findings compatible with subtotal cholecystectomy is seen with the neck and central portion remaining. Worsening/new common bile duct distention measuring up to 13 mm seen on image 54, series 2. Fluid collection were the remainder of the gallbladder was located, with some foci of gas measuring approximately 2.8 x 2.4 cm. A larger fluid collection is seen more laterally slight/superficially on image 64, series 2 measuring approximately 5.2 x 11.2 x 3.5 cm. A small amount of free fluid is seen in the pelvis. Severe motion artifact at the lung bases with mild patchy opacities which could be related to atelectasis. Diffuse hepatic steatosis and hepatomegaly. No splenomegaly. No peripancreatic fluid collection. Status post previous right nephrectomy. The left kidney measures normally without hydronephrosis. No bowel obstruction. The urinary bladder appears unremarkable. IMPRESSION: 1. Findings suggestive of postseptal cholecystectomy, with a small fluid collection in the gallbladder fossa and a larger fluid collection in the right upper quadrant more superficially. 2. Surgical drain courses through the gallbladder fossa and terminates in the region of the falciform ligament. 3. New common bile duct distention measuring approximately 13 mm, increased slightly from 7 mm previously. Please note that all CT scans at this facility use dose modulation, iterative reconstruction, and/or weight-based dosing when appropriate to reduce radiation dose to as low as reasonably achievable. Dictated by Bucky Hickman MD @ 01/24/2022 8:53:11 PM (Electronically Signed)
--- NOTE | 2022-01-24 17:04 | ED.GENADULT ---
HPI - General Adult General Chief complaint: Neuro Symptoms/Altered Deficit Stated complaint: Post Op/Confusion Time Seen by Provider: 01/24/22 16:47 History of Present Illness HPI narrative: 56-year-old woman presenting to the emergency department with her spouse with concern of confusion and potential infection. Three days ago had a laparoscopic cholecystectomy that by my read of record looks to be little difficult. SARAY drain was placed and has continued to drain green bilious fluid. She has not had any fever. Is having abdominal pain but not complaining of this. Unsure when last oxycodone was taken. She is not lightheaded. Is not nauseated. About 5 hours ago awoke to find her rather confused, talking strangely and strange behaviors. This is only escalated. Arrives to triage are she is noted to be hypotensive. No cough or cold symptoms. No dysuria. History of diabetes and stage 3 kidney disease. Blood sugars apparently in the 170s. Has continuous glucose monitoring. Related Data Home Medications Medication Instructions Recorded Confirmed glucagon 1 mg solution for 1 mg subcut .COMPLEX PRN 01/11/22 01/21/22 injection (Glucagon Emergency Kit) lisinopril 10 mg tablet 10 mg PO DAILY 01/11/22 01/21/22 ondansetron 8 mg disintegrating 8 mg PO PRN 01/11/22 01/18/22 tablet phentermine 37.5 mg tablet 37.5 mg PO DAILY 01/11/22 01/21/22 pregabalin 150 mg capsule 300 mg PO BID 01/11/22 01/21/22 aspirin 81 mg tablet,delayed 81 mg PO DAILY 01/12/22 01/21/22 release calcium carbonate 600 mg-vitamin 1 tab PO DAILY 01/12/22 01/21/22 D3 10 mcg (400 unit) tablet lansoprazole 30 mg capsule,delayed 30 mg PO BID 01/12/22 01/21/22 release rizatriptan 10 mg disintegrating 10 mg PO .As Needed PRN 01/12/22 01/18/22 tablet topiramate 100 mg tablet 200 mg PO DAILY 01/12/22 01/18/22 amitriptyline 25 mg tablet 25 - 50 mg PO QDAY PRN 01/13/22 01/21/22 insulin aspart U-100 100 unit/mL 125 unit continuous subcutaneous 01/13/22 01/21/22 subcutaneous solution (Novolog infusion DAILY U-100 Insulin aspart) insulin glargine 100 unit/mL (3 40 unit subcut .Bedtime PRN 01/13/22 01/21/22 mL) subcutaneous pen levothyroxine 200 mcg capsule 200 mcg PO QDAY 01/13/22 01/21/22 valacyclovir 500 mg tablet 500 mg PO BID PRN 01/13/22 01/18/22 vitamin B complex (B 2 tab PO QDAY 01/13/22 01/18/22 Complex-Vitamin B12 tablet) docusate sodium 100 mg tablet 100 mg PO DAILY 01/21/22 01/21/22 (Stool Softener) Previous Rx's Medication Instructions Recorded methocarbamol 500 mg tablet 500 mg PO QID PRN spasm #40 tabs 11/11/21 estradiol 0.01% (0.1 mg/gram) 0.5 g vaginal 2XW #42.5 grams 11/25/21 vaginal cream (Estrace) amoxicillin 500 mg capsule 2,000 mg PO ONCE #16 caps 11/27/21 tolterodine 2 mg tablet 2 mg PO BID #180 tabs 12/14/21 citalopram 40 mg tablet 40 mg PO QDAY #30 tabs 12/23/21 oxybutynin chloride 10 mg 10 mg PO QDAY #30 tabs 12/28/21 tablet,extended release 24 hr furosemide 40 mg tablet (Lasix) 40 mg PO QDAY #90 tabs 01/13/22 hydrocodone 5 mg-acetaminophen 325 1 - 2 tab PO Q6H PRN Pain #20 tabs 01/21/22 mg tablet oxycodone 5 mg capsule 5 mg PO Q6H PRN pain #30 caps 01/22/22 Allergies Allergy/AdvReac Type Severity Reaction Status Date / Time No Known Drug Allergies Allergy Verified 01/24/22 16:41 Review of Systems Status of ROS: Reports: 10 or more systems reviewed and unremarkable except as noted in History and below [facility] Medical History Cholelithiasis Constipation Diabetic peripheral neuropathy associated with type 1 diabetes mellitus (10/28/15) Gastroesophageal reflux disease (05/31/13) Herpes simplex type 2 infection History of osteomyelitis History of pulmonary embolism (06/07/14) History of tear of meniscus of knee joint Hypertension Hypothyroidism Latent tuberculosis diagnosed by blood test Low back pain Lower extremity edema Methicillin resistant Staphylococcus aureus culture positive Migraine headache Need for SBE (subacute bacterial endocarditis) prophylaxis Obesity Obstructive sleep apnea syndrome Osteoarthritis of knees, bilateral Recurrent mild major depressive disorder with anxiety (05/31/13) Stage 3 chronic kidney disease (06/28/16) Type 1 diabetes mellitus (1974) Urge incontinence Urinary bladder incontinence Surgical History History of arthroscopy of shoulder (2003) History of carpal tunnel release History of right nephrectomy (2007) History of total right knee replacement (2018) Family History Father Heart disease Type 2 diabetes mellitus Sister Type 2 diabetes mellitus Social History Narrative: , no kids Non-smoker Social EtOH 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 She really likes this job. She does not smoke. She does not drink alcohol She does not use recreational drugs Smoking Status: Never smoker How often do you have a drink containing alcohol: never AUDIT-C Alcohol total score: 0 Non-prescribed substance use: denies use Caffeine: Yes (DAILY) Little interest or pleasure in doing things: not at all Feeling down, depressed, or hopeless: not at all Exam Narrative: Exam Narrative: His pleasant. Appears distracted. Is making strange references. She believes she also saw me last night which is not true. Prefers to lay her head back and close her eyes. Head looks to be atraumatic. Cranial nerves 2-12 intact. Moving all extremities difficulty. There are surgical scars anterior bilateral knees with mild pitting lower extremity edema. No erythematous changes. Is breathing easily though maybe a little shallow, lungs appear to be clear. Abdomen is overweight, distended soft diffusely quite tender though. Tympanitic in the upper abdomen. Port sites are still covered with Steri-Strips but do not appear inflamed. SARAY drain with green bilious fluid. Const: Vital Signs, click to edit/add: Vital Signs - 24 hr 01/24/22 16:30 01/24/22 17:32 01/24/22 17:47 Temperature 97.9 F Pulse Rate 89 Pulse Rate [Right Pulse Oximeter] 94 Respiratory Rate 16 Blood Pressure 102/42 L 90/44 L Blood Pressure [Le ft Upper Arm] 77/49 L Pulse Oximetry 93 99 Oxygen Delivery Me thod Room Air Oxygen Flow Rate 01/24/22 17:15 01/24/22 18:27 01/24/22 18:32 Temperature Pulse Rate 94 Pulse Rate [Right Pulse Oximeter] Respiratory Rate Blood Pressure 108/41 L 112/42 L Blood Pressure [Le ft Upper Arm] Pulse Oximetry 95 97 Oxygen Delivery Me thod Nasal Cannula Oxygen Flow Rate 2 01/24/22 19:03 01/24/22 19:17 01/24/22 19:33 Temperature Pulse Rate 92 92 100 Pulse Rate [Right Pulse Oximeter] Respiratory Rate Blood Pressure 89/41 L 89/44 L 98/49 L Blood Pressure [Le ft Upper Arm] Pulse Oximetry 95 93 96 Oxygen Delivery Me thod Oxygen Flow Rate 01/24/22 19:47 01/24/22 20:02 01/24/22 20:17 Temperature Pulse Rate 96 95 Pulse Rate [Right Pulse Oximeter] Respiratory Rate Blood Pressure 99/60 104/62 85/61 L Blood Pressure [Le ft Upper Arm] Pulse Oximetry 78 L 82 L 79 L Oxygen Delivery Me thod Oxygen Flow Rate 01/24/22 20:36 01/24/22 20:41 01/24/22 20:47 Temperature Pulse Rate 97 95 95 Pulse Rate [Right Pulse Oximeter] Respiratory Rate Blood Pressure 78/48 L 106/45 L 99/55 L Blood Pressure [Le ft Upper Arm] Pulse Oximetry 93 91 92 Oxygen Delivery Me thod Oxygen Flow Rate 01/24/22 21:33 01/24/22 21:45 01/24/22 21:47 Temperature Pulse Rate 97 97 Pulse Rate [Right Pulse Oximeter] Respiratory Rate Blood Pressure 76/39 L 85/39 L 80/47 L Blood Pressure [Le ft Upper Arm] Pulse Oximetry 92 92 Oxygen Delivery Me thod Oxygen Flow Rate 01/24/22 21:58 01/24/22 22:00 01/24/22 22:02 Temperature Pulse Rate 94 93 92 Pulse Rate [Right Pulse Oximeter] Respiratory Rate Blood Pressure 82/37 L 99/38 L 89/35 L Blood Pressure [Le ft Upper Arm] Pulse Oximetry 95 95 95 Oxygen Delivery Me thod Oxygen Flow Rate 01/24/22 22:17 01/24/22 22:30 01/24/22 22:33 Temperature Pulse Rate 93 113 H 117 H Pulse Rate [Right Pulse Oximeter] Respiratory Rate Blood Pressure 101/35 L 162/56 H Blood Pressure [Le ft Upper Arm] Pulse Oximetry 89 92 92 Oxygen Delivery Me thod Oxygen Flow Rate 01/24/22 22:45 01/24/22 22:47 01/24/22 22:48 Temperature Pulse Rate 114 H 114 H 113 H Pulse Rate [Right Pulse Oximeter] Respiratory Rate Blood Pressure 131/95 H Blood Pressure [Le ft Upper Arm] Pulse Oximetry 90 90 90 Oxygen Delivery Me thod Oxygen Flow Rate 01/24/22 23:00 01/24/22 23:02 01/24/22 23:15 Temperature 98.3 F Pulse Rate 114 H 114 H 120 H Pulse Rate [Right Pulse Oximeter] Respiratory Rate Blood Pressure 150/48 H 178/76 H Blood Pressure [Le ft Upper Arm] Pulse Oximetry 94 91 92 Oxygen Delivery Me thod Oxygen Flow Rate 01/24/22 23:16 01/24/22 23:22 01/24/22 23:30 Temperature Pulse Rate 119 H 114 H 112 H Pulse Rate [Right Pulse Oximeter] Respiratory Rate Blood Pressure 144/47 H Blood Pressure [Le ft Upper Arm] Pulse Oximetry 91 92 92 Oxygen Delivery Me thod Oxygen Flow Rate 01/24/22 23:32 01/24/22 23:42 01/24/22 23:45 Temperature Pulse Rate 113 H 107 H 109 H Pulse Rate [Right Pulse Oximeter] Respiratory Rate Blood Pressure 136/45 L 131/53 L Blood Pressure [Le ft Upper Arm] Pulse Oximetry 92 93 93 Oxygen Delivery Me thod Oxygen Flow Rate 01/24/22 23:52 01/25/22 00:00 01/25/22 00:02 Temperature Pulse Rate 109 H 111 H 111 H Pulse Rate [Right Pulse Oximeter] Respiratory Rate Blood Pressure 138/71 143/52 H Blood Pressure [Le ft Upper Arm] Pulse Oximetry 93 93 93 Oxygen Delivery Me thod Oxygen Flow Rate 01/25/22 00:12 01/25/22 00:15 01/25/22 00:22 Temperature Pulse Rate 114 H 116 H 110 H Pulse Rate [Right Pulse Oximeter] Respiratory Rate Blood Pressure 152/65 H 134/70 Blood Pressure [Le ft Upper Arm] Pulse Oximetry 94 90 96 Oxygen Delivery Me thod Oxygen Flow Rate 01/25/22 00:23 01/24/22 20:01 01/24/22 20:02 Temperature Pulse Rate 109 H Pulse Rate [Right Pulse Oximeter] Respiratory Rate Blood Pressure Blood Pressure [Le ft Upper Arm] Pulse Oximetry 97 91 Oxygen Delivery Me thod Nasal Cannula Oxygen Flow Rate 2 Documenting provider has reviewed patient's vital signs: yes Course Course Hospital Course: Primary concern of sepsis at this point. Bolusing fluids blood cultures than anticipated antibiotics. Scanning abdomen. Reevaluation(s) Reevaluation #1: Cultures collected. Antibiotics have been initiated. Returns from Radiology clearly in more pain. I go to check and inquire need for pain medication but now that seems to be settling in she does not think she needs anything. She is offering a high 5. Still appears confused. Chest x-ray by my read some atelectatic changes. Due to apparent technical problem was rather long time prior to receiving formal results of abdominal scan. I did review these images. Radiology review as below--- IMPRESSION: 1. Findings suggestive of postseptal cholecystectomy, with a small fluid collection in the gallbladder fossa and a larger fluid collection in the right upper quadrant more superficially. 2. Surgical drain courses through the gallbladder fossa and terminates in the region of the falciform ligament. 3. New common bile duct distention measuring approximately 13 mm, increased slightly from 7 mm previously. Reevaluation #2: Pressures have improved to 112 systolic with fluid boluses though fluctuating Reevaluation #3: Intermittently does have lower blood pressure readings and maps and appears to be less responsive to fluid boluses. Continuing fluid resuscitation but adding norepinephrine drip. On wait list for [facility]. Additional Reevaluation(s): Pain has escalated. Requested fentanyl. Chemistries are redrawn. Temporizing potassium elevation with calcium gluconate administration. Consultations Consultation #1: Have spoken with paid search analyst at [facility] who noting improvement in lactate and pressures responding somewhat to fluids recommending hospital bed but they do not have any. Continue to call. Will be initiating insulin drip as blood sugars increasing. In this setting understandably elevated potassium and low sodium; correction calculated. Consultation #2: I spoken also with our general surgeon does have concern about potential stone in duct and cholangitis with associated sepsis. Consultation #3: Consulted also with her hospitalist regarding later management of what appears to be evolving DKA in the setting of sepsis. Vital Signs Vital signs: Initial Vital Signs Temperature 97.9 F 01/24/22 16:30 Temperature Source Temporal Artery Scan 01/24/22 16:30 Pulse Rate 94 01/24/22 16:30 Respiratory Rate 16 01/24/22 16:30 Blood Pressure 77/49 L 01/24/22 16:30 Blood Pressure Mean 58 01/24/22 16:30 Blood Pressure Position Sitting 01/24/22 16:30 Pulse Oximetry 93 01/24/22 16:30 Oxygen Delivery Method 01/24/22 16:30 Vital Signs Temperature 97.9 F 01/24/22 16:30 Pulse Rate 94 01/24/22 16:30 Respiratory Rate 16 01/24/22 16:30 Blood Pressure 77/49 L 01/24/22 16:30 Pulse Oximetry 93 01/24/22 16:30 Oxygen Delivery Method 01/24/22 16:30 Temperature 98.3 F 01/24/22 23:02 Pulse Rate 109 H 01/25/22 00:23 Respiratory Rate 16 01/24/22 16:30 Blood Pressure 134/70 01/25/22 00:22 Pulse Oximetry 97 01/25/22 00:23 Oxygen Delivery Method 01/24/22 20:01 Oxygen Flow Rate 2 01/24/22 20:01 Medical Decision Making Lab Data Lab results reviewed: Yes I reviewed the patient's lab results (Continuously) Labs: Lab Results 01/24/22 01/24/22 01/24/22 Range/Units 17:00 17:00 17:00 WBC 11.50 H (4.50-11.00) K/uL RBC 3.51 L (4.00-5.20) m/uL Hgb 10.8 L (12.0-16.0) gm/dL Hct 32.5 L (33.0-51.0) % MCV 93 (80-100) fL MCH 31 (26-34) pg MCHC 33 (32-36) gm/dL RDW Coeff of Vin 12.9 (11.5-15.5) % Plt Count 254 (140-440) K/uL Neut % (Auto) 89.1 H (42.0-72.0) % Lymph % (Auto) 4.9 L (20-44) % [place] % (Auto) 4.9 (0.0-11.0) % Eos % (Auto) 0.7 (0.0-7.0) % Baso % (Auto) 0.1 (0.0-3.0) % Neut # (Auto) 10.20 H (1.7-7.0) K/uL Lymph # (Auto) 0.60 L (0.90-2.90) K/uL [place] # (Auto) 0.60 (0.00-0.90) K/UL Eos # (Auto) 0.10 (0.00-0.50) K/uL Baso # (Auto) 0.00 (0.00-0.30) K/uL Abs Immat Gran (auto) 0.03 (0.00-0.30) K/uL VBG pH (7.32-7.43) VBG pCO2 (40-50) mmHG VBG pO2 (25-47) mmHG VBG HCO3 (21-28) mmol/L Sodium 129 L (135-149) mmol/L Potassium 4.7 (3.6-5.1) mmol/L Chloride 97 (96-114) mmol/L Carbon Dioxide 20 (20-32) mmol/L BUN 72 H (7-30) mg/dL Creatinine 5.6 H (0.5-1.5) mg/dL Estimated Creat Clear 12.54 Estimated GFR 8 ml/min Glucose 197 H (60-115) mg/dL Lactate (0.5-1.9) mmol/L Venous Lactic Acid (Serial Order) Calcium 8.9 (8.4-10.6) mg/dL Total Bilirubin 0.9 (0.1-1.5) mg/dL Direct Bilirubin 0.5 (0.0-0.5) mg/dL AST 64 H (12-35) U/L ALT 41 H (4-35) U/L Alkaline Phosphatase 97 (40-150) U/L Ammonia < 9.0 L (13.1-30.0) umol/L Troponin I < 0.01 L (0.01-0.04) ng/mL C-Reactive Protein 8.8 H (0.5-1.0) mg/dL Total Protein 6.9 (6.0-8.3) g/dL Albumin 3.7 (3.3-5.0) g/dL Lipase 12 L (23-300) U/L Procalcitonin (<0.50) ng/mL Urine Color (Yellow) Urine Appearance (Clear) Urine pH (5.0-8.5) Ur Specific [place] (1.000-1.030) Urine Protein (Negative) Urine Glucose (UA) (Negative) Urine Ketones (Negative) Urine Blood (Negative) Urine Nitrite (Negative) Urine Bilirubin (Negative) Urine Urobilinogen (0.2-1.0) Ur Leukocyte Esterase (Negative) Urine RBC (0-2) Urine WBC (0-5) Ur Squamous Epith Cells (None-Few) Urine Bacteria (None) SARS-CoV-2 (PCR) (Negative) 01/24/22 01/24/22 01/24/22 Range/Units 17:00 17:00 17:00 WBC (4.50-11.00) K/uL RBC (4.00-5.20) m/uL Hgb (12.0-16.0) gm/dL Hct (33.0-51.0) % MCV (80-100) fL MCH (26-34) pg MCHC (32-36) gm/dL RDW Coeff of Vin (11.5-15.5) % Plt Count (140-440) K/uL Neut % (Auto) (42.0-72.0) % Lymph % (Auto) (20-44) % [place] % (Auto) (0.0-11.0) % Eos % (Auto) (0.0-7.0) % Baso % (Auto) (0.0-3.0) % Neut # (Auto) (1.7-7.0) K/uL Lymph # (Auto) (0.90-2.90) K/uL [place] # (Auto) (0.00-0.90) K/UL Eos # (Auto) (0.00-0.50) K/uL Baso # (Auto) (0.00-0.30) K/uL Abs Immat Gran (auto) (0.00-0.30) K/uL VBG pH 7.324 (7.32-7.43) VBG pCO2 41 (40-50) mmHG VBG pO2 46.8 (25-47) mmHG VBG HCO3 21 (21-28) mmol/L Sodium (135-149) mmol/L Potassium (3.6-5.1) mmol/L Chloride (96-114) mmol/L Carbon Dioxide (20-32) mmol/L BUN (7-30) mg/dL Creatinine (0.5-1.5) mg/dL Estimated Creat Clear Estimated GFR ml/min Glucose (60-115) mg/dL Lactate (0.5-1.9) mmol/L Venous Lactic Acid (Serial Order) Calcium (8.4-10.6) mg/dL Total Bilirubin Cancelled (0.1-1.5) mg/dL Direct Bilirubin Cancelled (0.0-0.5) mg/dL AST Cancelled (12-35) U/L ALT Cancelled (4-35) U/L Alkaline Phosphatase Cancelled (40-150) U/L Ammonia (13.1-30.0) umol/L Troponin I Cancelled (0.01-0.04) ng/mL C-Reactive Protein (0.5-1.0) mg/dL Total Protein Cancelled (6.0-8.3) g/dL Albumin Cancelled (3.3-5.0) g/dL Lipase Cancelled (23-300) U/L Procalcitonin (<0.50) ng/mL Urine Color (Yellow) Urine Appearance (Clear) Urine pH (5.0-8.5) Ur Specific [place] (1.000-1.030) Urine Protein (Negative) Urine Glucose (UA) (Negative) Urine Ketones (Negative) Urine Blood (Negative) Urine Nitrite (Negative) Urine Bilirubin (Negative) Urine Urobilinogen (0.2-1.0) Ur Leukocyte Esterase (Negative) Urine RBC (0-2) Urine WBC (0-5) Ur Squamous Epith Cells (None-Few) Urine Bacteria (None) SARS-CoV-2 (PCR) Negative SARS-CoV-2 (Negative) 01/24/22 01/24/22 01/24/22 Range/Units 17:00 17:00 20:00 WBC (4.50-11.00) K/uL RBC (4.00-5.20) m/uL Hgb (12.0-16.0) gm/dL Hct (33.0-51.0) % MCV (80-100) fL MCH (26-34) pg MCHC (32-36) gm/dL RDW Coeff of Vin (11.5-15.5) % Plt Count (140-440) K/uL Neut % (Auto) (42.0-72.0) % Lymph % (Auto) (20-44) % [place] % (Auto) (0.0-11.0) % Eos % (Auto) (0.0-7.0) % Baso % (Auto) (0.0-3.0) % Neut # (Auto) (1.7-7.0) K/uL Lymph # (Auto) (0.90-2.90) K/uL [place] # (Auto) (0.00-0.90) K/UL Eos # (Auto) (0.00-0.50) K/uL Baso # (Auto) (0.00-0.30) K/uL Abs Immat Gran (auto) (0.00-0.30) K/uL VBG pH (7.32-7.43) VBG pCO2 (40-50) mmHG VBG pO2 (25-47) mmHG VBG HCO3 (21-28) mmol/L Sodium (135-149) mmol/L Potassium (3.6-5.1) mmol/L Chloride (96-114) mmol/L Carbon Dioxide (20-32) mmol/L BUN (7-30) mg/dL Creatinine (0.5-1.5) mg/dL Estimated Creat Clear Estimated GFR ml/min Glucose (60-115) mg/dL Lactate (0.5-1.9) mmol/L Venous Lactic Acid (Serial Order) Calcium (8.4-10.6) mg/dL Total Bilirubin (0.1-1.5) mg/dL Direct Bilirubin (0.0-0.5) mg/dL AST (12-35) U/L ALT (4-35) U/L Alkaline Phosphatase (40-150) U/L Ammonia (13.1-30.0) umol/L Troponin I (0.01-0.04) ng/mL C-Reactive Protein (0.5-1.0) mg/dL Total Protein (6.0-8.3) g/dL Albumin (3.3-5.0) g/dL Lipase (23-300) U/L Procalcitonin > 100.00 H (<0.50) ng/mL Urine Color Yellow (Yellow) Urine Appearance Clear (Clear) Urine pH 5.0 (5.0-8.5) Ur Specific [place] 1.015 (1.000-1.030) Urine Protein Negative (Negative) Urine Glucose (UA) Trace A (Negative) Urine Ketones Negative (Negative) Urine Blood Trace-intact A (Negative) Urine Nitrite Negative (Negative) Urine Bilirubin 1+ A (Negative) Urine Urobilinogen 0.2 (0.2-1.0) Ur Leukocyte Esterase Negative (Negative) Urine RBC 0-2 (0-2) Urine WBC 0-2 (0-5) Ur Squamous Epith Cells Moderate A (None-Few) Urine Bacteria None (None) SARS-CoV-2 (PCR) (Negative) 01/24/22 01/24/22 01/24/22 Range/Units 21:00 21:00 21:00 WBC (4.50-11.00) K/uL RBC (4.00-5.20) m/uL Hgb (12.0-16.0) gm/dL Hct (33.0-51.0) % MCV (80-100) fL MCH (26-34) pg MCHC (32-36) gm/dL RDW Coeff of Vin (11.5-15.5) % Plt Count (140-440) K/uL Neut % (Auto) (42.0-72.0) % Lymph % (Auto) (20-44) % [place] % (Auto) (0.0-11.0) % Eos % (Auto) (0.0-7.0) % Baso % (Auto) (0.0-3.0) % Neut # (Auto) (1.7-7.0) K/uL Lymph # (Auto) (0.90-2.90) K/uL [place] # (Auto) (0.00-0.90) K/UL Eos # (Auto) (0.00-0.50) K/uL Baso # (Auto) (0.00-0.30) K/uL Abs Immat Gran (auto) (0.00-0.30) K/uL VBG pH 7.254 L (7.32-7.43) VBG pCO2 42 (40-50) mmHG VBG pO2 34.4 (25-47) mmHG VBG HCO3 19 L (21-28) mmol/L Sodium 126 L (135-149) mmol/L Potassium 5.8 H (3.6-5.1) mmol/L Chloride 95 L (96-114) mmol/L Carbon Dioxide 17 L (20-32) mmol/L BUN 69 H (7-30) mg/dL Creatinine 5.1 H (0.5-1.5) mg/dL Estimated Creat Clear 13.77 Estimated GFR 9 ml/min Glucose 397 H* (60-115) mg/dL Lactate 1.2 (0.5-1.9) mmol/L Venous Lactic Acid (Serial Order) Calcium 7.8 L (8.4-10.6) mg/dL Total Bilirubin (0.1-1.5) mg/dL Direct Bilirubin (0.0-0.5) mg/dL AST (12-35) U/L ALT (4-35) U/L Alkaline Phosphatase (40-150) U/L Ammonia (13.1-30.0) umol/L Troponin I (0.01-0.04) ng/mL C-Reactive Protein (0.5-1.0) mg/dL Total Protein (6.0-8.3) g/dL Albumin (3.3-5.0) g/dL Lipase (23-300) U/L Procalcitonin (<0.50) ng/mL Urine Color (Yellow) Urine Appearance (Clear) Urine pH (5.0-8.5) Ur Specific [place] (1.000-1.030) Urine Protein (Negative) Urine Glucose (UA) (Negative) Urine Ketones (Negative) Urine Blood (Negative) Urine Nitrite (Negative) Urine Bilirubin (Negative) Urine Urobilinogen (0.2-1.0) Ur Leukocyte Esterase (Negative) Urine RBC (0-2) Urine WBC (0-5) Ur Squamous Epith Cells (None-Few) Urine Bacteria (None) SARS-CoV-2 (PCR) (Negative) Critical Care Time Critical Care Time Critical Care Time: Yes Attestation: The patient required my highest level preparedness to intervene emergently and I personally spent this critical care time directly and personally managing the patient. This critical care time included: Obtaining a history; Examining the patient; Pulse oximetry; Ordering and reviewing of studies; Arranging urgent treatment with development of a management plan; Evaluation of patients response to treatment; Frequent reassessment discussions with other providers. This critical care time was performed to assess and manage the high probability of imminent life-threatening deterioration that could result in multiorgan failure. It was exclusive of separate billable procedures and treating other patients and teaching time. Total Critical Care Time in Minutes: 120 Discharge Plan Discharge Clinical Impression: Sepsis, Cholangitis Patient Disposition: [facility] Discharge Location: [facility] Condition: Critical Prescriptions: No Action oxybutynin chloride 10 mg tablet extended release 24hr 10 mg PO QDAY Qty: 30 1RF Rx Instructions: Please call [facility] at [phone] to schedule an appointment, no future refills will be authorized. aspirin 81 mg tablet,delayed release (DR/EC) 81 mg PO DAILY rizatriptan 10 mg tablet,disintegrating 10 mg PO .As Needed PRN Rx Instructions: TAKE ONE TAB AT ONSET OF HEADACHE, MAY REPEAT Q2H PRN, MAX 30 MG/24 HRS lansoprazole 30 mg capsule,delayed release(DR/EC) 30 mg PO BID topiramate 100 mg tablet 200 mg PO DAILY calcium carbonate-vitamin D3 600 mg-10 mcg (400 unit) tablet 1 tab PO DAILY insulin aspart U-100 [Novolog U-100 Insulin aspart] 100 unit/mL solution 125 unit continuous subcutaneous infusion DAILY Label Comments: For insulin pump use. Up to 125 units per day. insulin glargine 100 unit/mL (3 mL) insulin pen 40 unit subcut .Bedtime PRN Hold Instructions: Doctor's Order Rx Instructions: Use if pump failure levothyroxine 200 mcg capsule 200 mcg PO QDAY valacyclovir 500 mg tablet 500 mg PO BID PRN vitamin B complex [B Complex-Vitamin B12] Tablet 2 tab PO QDAY furosemide [Lasix] 40 mg tablet 40 mg PO QDAY Qty: 90 0RF Glucagon Emergency Kit (human) 1 mg recon soln 1 mg subcut .COMPLEX PRN Label Comments: INJECT 1 MG BY INTRAMUSCULAR ROUTE NEEDED FOR LOW BLOOD SUGAR Rx Instructions: 1 mg subcutaneously NEEDED PRN; lisinopril 10 mg tablet 10 mg PO DAILY Label Comments: TAKE ONE TABLET BY MOUTH ONE TIME DAILY ondansetron 8 mg tablet,disintegrating 8 mg PO PRN phentermine 37.5 mg tablet 37.5 mg PO DAILY Label Comments: take 0.5 tablets by mouth once daily in the morning for 10 days, then increase to 1 tablet if needed. pregabalin 150 mg capsule 300 mg PO BID amitriptyline 25 mg tablet 25 - 50 mg PO QDAY PRN Label Comments: TAKE THREE TABLETS BY MOUTH DAILY AT BEDTIME docusate sodium [Stool Softener] 100 mg tablet 100 mg PO DAILY hydrocodone-acetaminophen 5-325 mg Tablet 1 - 2 tab PO Q6H PRN (Reason: Pain) Qty: 20 0RF oxycodone 5 mg capsule 5 mg PO Q6H PRN (Reason: pain) Qty: 30 0RF Rx Instructions: take 1-2 tab Q6h prn pain methocarbamol 500 mg tablet 500 mg PO QID PRN (Reason: spasm) Qty: 40 1RF estradiol [Estrace] 0.01 % (0.1 mg/gram) cream 0.5 g vaginal 2XW Qty: 42.5 0RF Label Comments: takes on and Tuesday amoxicillin 500 mg capsule 2,000 mg PO ONCE Qty: 16 1RF tolterodine 2 mg tablet 2 mg PO BID Qty: 180 1RF citalopram 40 mg tablet 40 mg PO QDAY Qty: 30 0RF Stand Alone Forms: [facility] Info Instructions
[2022-01-24 17:05] LABS: HCO3 VBG 21 mmol/L (21-28); PCO2 VBG 41 mmHG (40-50); PO2 VBG 46.8 mmHG (25-47); pH VBG 7.324 (7.32-7.43)
[2022-01-24] MEDS: LACTATED RINGERS 1000 ML 1,000 ML IV (17:05)
[2022-01-24 17:09] LABS: Basophils Percent Auto 0.1 % (0.0-3.0); Eosinophils Percent Auto 0.7 % (0.0-7.0); Hematocrit 32.5 % (33.0-51.0); Hemoglobin* 10.8 gm/dL (12.0-16.0); Immature Granulocytes Abs Auto 0.03 K/uL (0.00-0.30); Lymphocytes Percent Auto 4.9 % (20-44); Mean Corpuscular HGB Conc 33 gm/dL (32-36); Mean Corpuscular Hemoglobin 31 pg (26-34); Mean Corpuscular Volume 93 fL (80-100); Monocytes Percent Auto 4.9 % (0.0-11.0); Neutrophils Percent Auto 89.1 % (42.0-72.0); Platelet Count* 254 K/uL (140-440); RDW Coefficient of Variation % 12.9 % (11.5-15.5); Red Blood Count 3.51 m/uL (4.00-5.20)
[2022-01-24 17:11] LABS: Slide Review Reflex No
[2022-01-24] MEDS: 0.9 % SODIUM CHLORIDE 1000 ml 1,000 ML 6000 ML IV (17:13)
--- NOTE | 2022-01-24 17:14 | CRLHL7_ITS ---
For Patients: As a result of the Cures Act, medical imaging exams and procedure reports are released immediately into your electronic medical record. You may view this report before your referring provider. If you have questions, please contact your health care provider. HISTORY: Postoperative altered mental status and hypoxia. TECHNIQUE: Portable frontal view the chest. COMPARISON: Chest x-ray 04/24/2019. FINDINGS: Low lung volumes. Bibasilar atelectasis, right greater than left. No consolidation. No pleural effusion or pneumothorax. Pulmonary vasculature and cardiomediastinal silhouette are unremarkable. And healed remote right rib fractures. IMPRESSION: Low lung volumes with bibasilar atelectasis. Dictated by Shayan Roberson MD @ 01/24/2022 5:58:21 PM (Electronically Signed)
--- NOTE | 2022-01-24 17:16 | ED.NURSE ---
Sats on RA noted to be 89-90%, shallow breathing. O2 via NC applied at 2LPM, Sats now 98%. aware.
[2022-01-24 17:17] LABS: Lactate Sepsis w/Reflex* 2.7 mmol/L (0.5-1.9)
--- NOTE | 2022-01-24 17:18 | ED.NURSE ---
165--patient moved quickly to a room and patient stated is getting tired. able to stand into bed and face diaphoretic and warm. laying down on the bed. patient is closing eyes. Dr. Gross was able to come in an assess the patient. placed saline lock in the LAC and drawn labs plus a blood culture and bp 69 systolic. infusing 0.9% normal saline one liter now. 2nd saline lock placed in the left wrist area #20 jelco and able to draw the 2nd set of blood cultures. Hung another LR 1000cc of at 1000cc/hr.
--- OUTSIDE RECORDS SUMMARY | 2022-01-24 17:26 | XMS_ITS | Encounter Summary ---
:1965 Author Organization [place] Address [address] [facility] [address] Care Team Providers Name Role Phone Jocelyn Davidson Bran YANEZ Unavailable Nikita Gamble Primary Care Provider Naveen Casiano MD Unavailable Harlan Lin MD Unavailable Unavailable Reason for Visit Reason Comments Medication Refill Encounter Details Date Type Department Care Team Description 12/10/2020 Refill [facility] Annette Alvarez, Medication Refill [phone] [place] [address] (Wo rk) Social History Tobacco Use Types Packs/Day Years Used Date Smoking Tobacco: Never Smokeless Tobacco: Never Alcohol Use Standard Drinks/Week Comments Yes 0 (1 standard drink = 0.6 oz pure alcoho l) rare Sex Assigned at Date Recorded Female 03/04/2020 12:33 PM FILTER 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 COVID-19 Exposure Response Date Recorded In the [...] the [facility] refill protocol STEPHANIE Guidry, RN [facility] documented in this encounter Plan of Treatment Upcoming Encounters Date Type Specialty Care Team Description 02/09/2022 Virtual Visit Surgery Mindi Llanes PA-C [address] [facility] [address] [place] [address] (Wo rk) documented as of this encounter Visit Diagnoses Diagnosis Type 1 diabetes mellitus with stage 3a c hronic kidney disease (H) - Primary documented in this encounter Additional Health Concerns Assessment Noted Time PHQ-9 Depression Total Score: 0 02/26/2020 1:30 PM FILTER CLEANER documented as of this encounter Care Teams Dermatology Procedural Physician Relationship Specialty Start Date End Date Nikita Gamble PCP - General Family Medicine 05/26/20 [facility] [address] [place] [address] Sister Superior Dietitian, Registered 05/25/[address] [place] [address] Naveen Casiano MD Assigned PCP 11/16/20 [address] [place], [place] [phone] Harlan Lin Assigned Endocrinology 12/07/20 08/01/21 MD [place] Provider NO INFO AVAILABLE documented as of this encounter
--- OUTSIDE RECORDS SUMMARY | 2022-01-24 17:26 | XMS_ITS | Encounter Summary ---
:1965 Author Organization [place] Address [address] [facility] [place] [address] Care Team Providers Name Role Phone Jocelyn Davidson RENATA Unavailable Nikita Gamble Primary Care Provider Naveen Casiano MD Unavailable Mikki Blevins MD Unavailable Mikki Blevins MD Unavailable Reason for Referral Diagnostic Imaging NM (Routine) - Pending Review Specialty Diagnoses / Procedures Referred By Contact Refer red To Contact Diagnoses Gastroparesis Mikki Blevins MD Procedures [place] [address] Referral ID Status Reason Start Date Expiration Date Visits V isits Requested Authorized [id number] Pending 09/17/2021 09/17/2022 1 1 Review Encounter Details Date Type Department Care Team Description 09/17/2021 Orders Only [facility] Mikki Blevins MD Gastroparesis (Primary Specialty Clinic [place] [facility] Dx) [facility] [address] [facility] [address] [address] [place] [address] [phone] Social History Tobacco Use Types Packs/Day Years Used Date Smoking Tobacco: Never Smokeless Tobacco: Never Alcohol Use Standard Drinks/Week Comments Yes 0 (1 standard drink = 0.6 oz pure alcoho l) rare Sex Assigned at Date Recorded Female 03/04/2020 12:33 PM GAS DESULFURIZER documented as of this encounter Progress Notes Mikki Blevins MD - 09/17/2021 11:45 AM CDT Called to review Ozempic dosing Significant life stressors over past few weeks- Fired from work at [employer] No BM x8 days Bloated/looked like I [...] Mindi Llanes PA-C [address] [facility] [address] [place] [id number] (Wo rk) Scheduled Orders Name Type Priority Associated Diagnoses Order S chedule NM Gastric Emptying Imaging Routine Gastroparesis Expecte d: 09/17/2021 (Approximate), Expires: 09/17/2022 documented as of this encounter Visit Diagnoses Diagnosis Gastroparesis - Primary documented in this encounter Additional Health Concerns Assessment Noted Time PHQ-9 Depression Total Score: 0 02/26/2020 1:30 PM GAS DESULFURIZER documented as of this encounter Care Teams Loft Worker Relationship Specialty Start Date End Date Nikita Gamble PCP - General Family Medicine 05/26/20 [facility] [address] [place] [address] Twister Hand Dietitian, Registered 05/25/18 [facility] [address] [place] [address] [place] [address] Naveen Casiano MD Assigned PCP 11/16/20 [address] [place], [place] [phone] Mikki Blevins MD MD Endocrinology, 05/07/21 [address] [facility] Diabetes, and [place], [place] Metabolism [phone] Mikki Blevins MD Assigned Endocrinology 08/02/21 [facility] [place] [address] documented as of this encounter
--- OUTSIDE RECORDS SUMMARY | 2022-01-24 17:26 | XMS_ITS | Encounter Summary ---
:1965 Author Organization [place] Address [address] [facility] [place] [address] Care Team Providers Name Role Phone Jocelyn [...] (H) Mikki Blevins MD [facility] [address] [place] [address] [address] [place] [address] Phone: Fax: Referral ID Status Reason Start Date Expiration Date Visits V isits Requested Authorized [id number] Pending 07/28/2021 07/28/2022 1 1 Review Reason for Visit Reason Comments New Patient Diabetes Encounter Details Date Type Department Care Team Description 07/28/2021 Virtual Visit [facility] Mikki Blevins MD Class 2 severe obesity with serious chucho rbidity and body mass index (BMI) of 36.0 to 36.9 in adult, unspecified obesity type (H) (Primary Dx); Special[facility] Morbid o besity (H); [facility] Type 1 diabetes mellitus with stage 3a c hronic kidney disease (H); [address] [facility] 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 [facility] [address] [address] [place] [phone] [address] (Work) [phone] Social History Tobacco Use Types Packs/Day Years Used Date Smoking Tobacco: Never Smokeless Tobacco: Never Alcohol Use Standard Drinks/Week Comments Yes 0 (1 standard drink = 0.6 oz pure alcoho l) rare Sex Assigned at Date Recorded Female 03/04/2020 12: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 Location): [place], [place] Distant Location (provider location): Home Platform used for Video Visit: MD Marnie Greer is a 56 year old yo female who presents today for evaluation of diabetes melltius type 1 via a billable video visit. Last seen by Dr Lin 12/03/2020. 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 New [...] PA-C [address] [place] [id number] (Wo rk) Scheduled Orders Name Type Priority [...] Depression Total Score: 0 02/26/2020 1:30 PM SPLICING TECHNICIAN documented as of this encounter Care Teams Senior Qa Automation Engineer Relationship Specialty Start Date End Date Nikita Gamble PCP - General Family Medicine 05/26/20 [facility] [address] [place] [address] Qa Developer Dietitian, Registered 05/25/18 [facility] [address] [place] [address] Naveen Casiano MD Assigned PCP 11/16/20 [address] [place], [place] [phone] Harlan Lin Assigned Endocrinology 12/07/20 08/01/21 MD [place] Provider NO INFO AVAILABLE Mikki Blevins MD MD Endocrinology, 05/07/21 [address] [facility] Diabetes, and [place], [place] Metabolism [address] documented as of this encounter
--- OUTSIDE RECORDS SUMMARY | 2022-01-24 17:26 | XMS_ITS | Encounter Summary ---
:1965 Author Organization [place] Address [address] [facility] [place] [address] Care Team Providers Name Role Phone Jocelyn Davidson RENATA Unavailable Nikita Gamble Primary Care Provider Naveen Casiano MD Unavailable Mikki Blevins MD Unavailable Mikki Blevins MD Unavailable Mindi Llanes PA-C Unavailable Reason for Visit Reason Onset Date Comments No Show 12/29/2021 Encounter Details Date Type Department Care Team Description 12/29/2021 Virtual Visit [facility] Mikki Blevins MD No-show for Specialty Clinic [place] [facility] appointm ent (Primary [facility] Dx) [address] 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 documented in this encounter Plan of Treatment Upcoming Encounters Date Type Specialty Care Team Description 02/09/2022 Virtual Visit Surgery Mindi Llanes PA-C [address] [place] [phone] (Wo rk) documented as of this encounter Visit Diagnoses Diagnosis No-show for appointment - Primary documented in this encounter Additional Health Concerns Assessment Noted Time PHQ-9 Depression Total Score: 0 02/26/2020 1:30 PM RAILROAD CARMAN documented as of this encounter Care Teams Warehouse Logistics Coordinator Relationship Specialty Start Date End Date Nikita Gamlbe PCP - General Family Medicine 05/26/[address] Production Posting Clerk Dietitian, Registered 05/25/18 [facility] [address] [place] [address] Naveen Casiano MD Assigned PCP 11/16/20 [address] [place] [address] Mikki Blevins MD MD Endocrinology, 05/07/21 [address] [facility] Diabetes, and [place], [place] Metabolism [phone] Mikki Blevins MD Assigned Endocrinology 08/02/21 [facility] [place] [address] Mindi Llanes Assigned Surgical 09/26/21 [facility] Provider [address] [place] [address] documented as of this encounter
--- OUTSIDE RECORDS SUMMARY | 2022-01-24 17:26 | XMS_ITS | Encounter Summary ---
:1965 Author Organization [place] Address [address] [facility] 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 documented as of this encounter Plan of Treatment Upcoming Encounters Date Type Specialty Care Team Description 02/09/2022 Virtual Visit Surgery Mindi Llanes PA-C [address] [place] [address] (Wo rk) documented as of this encounter Visit Diagnoses Not on filedocumented in this encounter Additional Health Concerns Assessment Noted Time PHQ-9 Depression Total Score: 0 02/26/2020 1:30 PM FINISHED CARPET INSPECTOR documented as of this encounter Care Teams Director Title Relationship Specialty Start Date End Date Nikita Gamble PCP - General Family Medicine 05/26/20 [facility] [address] [place] [address] Systems Eng Dietitian, Registered 05/25/[address] [place] [address] Naveen Casiano MD Assigned PCP 11/16/20 [address] [place] [address] documented as of this encounter
--- OUTSIDE RECORDS SUMMARY | 2022-01-24 17:26 | XMS_ITS | Encounter Summary ---
:1965 Author Organization [place] Address [address] [facility] [place] [address] Care Team Providers Name Role Phone Jocelyn [...] at Date Recorded Female 03/04/2020 12:33 PM THERMODYNAMIC PHYSICIST COVID-19 Exposure Response Date Recorded In the last month, have you been in contact with No / Unsure 01/05/2021 3:00 PM CDT someone who was confirmed or suspected to have Coronavirus / COVID-19? documented as of this encounter Plan of Treatment Upcoming Encounters Date Type Specialty Care Team Description 02/09/2022 Virtual Visit Surgery Mindi Llanes PA-C [address] [place] [address] (Wo rk) documented as of this encounter Visit Diagnoses Not on filedocumented in this encounter Additional Health Concerns Assessment Noted Time PHQ-9 Depression Total Score: 0 02/26/2020 1:30 PM THERMODYNAMIC PHYSICIST documented as of this encounter Care Teams Construction Services Technician Relationship Specialty Start Date End Date Nikita Gamble PCP - General Family Medicine 05/26/20 [facility] [address] [place] [address] Freight Brake Operator Dietitian, Registered 05/25/18 [facility] [address] [place] [address] [place] [address] Naveen Casiano MD Assigned PCP 11/16/20 [address] [place] [address] Harlan Lin Assigned Endocrinology 12/07/20 08/01/21 MD Bass[place] Provider NO INFO AVAILABLE documented as of this encounter
--- OUTSIDE RECORDS SUMMARY | 2022-01-24 17:26 | XMS_ITS | Encounter Summary ---
:1965 Author Organization [place] Address [facility] [place] [address] Care Team Providers Name Role Phone Jocelyn Davidson RENATA Unavailable Nikita Gamble Primary Care Provider Naveen Casiano MD Unavailable Harlan Lin MD Unavailable Unavailable Mikki Blevins MD Unavailable Reason for Visit Reason Comments Medication Refill Encounter Details Date Type Department Care Team Description 06/27/2021 Refill [facility] Naveed Lin [place] [address] [facility] [place] [address] Social History Tobacco Use Types Packs/Day Years Used Date Smoking Tobacco: Never Smokeless Tobacco: Never Alcohol Use Standard Drinks/Week Comments Yes 0 (1 standard drink = 0.6 oz pure alcoho l) rare Sex Assigned at Date Recorded Female 03/04/2020 12:33 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 GRAPPLE OPERATOR documented as of this encounter Miscellaneous [...] PA-C [address] [facility] [address] [place] [id number] (Wo rk) documented as of this encounter Visit Diagnoses Diagnosis Type 1 diabetes mellitus with stage 3a c hronic kidney disease (H) documented in this encounter Additional Health Concerns Assessment Noted Time PHQ-9 Depression Total Score: 0 02/26/2020 1:30 PM SORTING GRAPPLE OPERATOR documented as of this encounter Care Teams Type Cutter Relationship Specialty Start Date End Date Nikita Gamble PCP - General Family Medicine 05/26/20 [facility] [address] [place] [address] Crane Hoist Or Lift Operator Dietitian, Registered 05/25/[address] [place] [address] Naveen Casiano MD Assigned PCP 11/16/20 [address] [place], [place] [phone] Harlan Lin Assigned Endocrinology 12/07/20 08/01/21 MD [place] Provider NO INFO AVAILABLE Mikki Blevins MD MD Endocrinology, 05/07/21 9 [facility] Diabetes, and Metabolism [address] documented as of this encounter
--- OUTSIDE RECORDS SUMMARY | 2022-01-24 17:26 | XMS_ITS | Encounter Summary ---
:1965 Author Organization [place] Address [address] [facility] [place] [address] Care Team Providers Name Role Phone Jocelyn Davidson RENATA Unavailable Nikita Gamble Primary Care Provider Naveen Casiano MD Unavailable Harlan Lin MD Unavailable Unavailable Encounter Details Date Type Department Care Team Description 12/05/2020 Medical Correspondence [facility] Scan, PUMP PRESCRIPTION Health Info Mgmt Non-Provider ORDER DANIEL[facility] [address] [place] [address] Social History Tobacco Use Types Packs/Day Years Used Date Smoking Tobacco: Never Smokeless Tobacco: Never Alcohol Use Standard Drinks/Week Comments Yes 0 (1 standard drink = 0.6 oz pure alcoho l) rare Sex Assigned at Date Recorded Female 03/04/2020 12:33 PM SPINNING SUPERVISOR COVID-19 Exposure Response Date Recorded In the last month, have you been in contact with No / Unsure 01/05/2021 3:00 PM CDT someone who was confirmed or suspected to have Coronavirus / COVID-19? documented as of this encounter Plan of Treatment Upcoming Encounters Date Type Specialty Care Team Description 02/09/2022 Virtual Visit Surgery Mindi Llanes PA-C [address] [facility] [address] [place] [address] (Wo rk) documented as of this encounter Visit Diagnoses Not on filedocumented in this encounter Additional Health Concerns Assessment Noted Time PHQ-9 Depression Total Score: 0 02/26/2020 1:30 PM SPINNING SUPERVISOR documented as of this encounter Care Teams Streetcar Repairer Helper Relationship Specialty Start Date End Date Nikita Gamble PCP - General Family Medicine 05/26/20 [facility] [address] [place] [address] Personal Banking Advisor Dietitian, Registered 05/25/[address] [place] [address] Naveen Casiano MD Assigned PCP 11/16/20 [address] [place] [address] Harlan Lin Assigned Endocrinology 12/07/20 08/01/21 MD [place] Provider NO INFO AVAILABLE documented as of this encounter
--- OUTSIDE RECORDS SUMMARY | 2022-01-24 17:26 | XMS_ITS | Encounter Summary ---
:1965 Author Organization [place] Address [address] [facility] [place] [address] Care Team Providers Name Role Phone Jocelyn Davidson RENATA Unavailable Nikita Gamble Primary Care Provider Naveen Casiano MD Unavailable Harlan Lin MD Unavailable Unavailable Encounter Details Date Type Department Care Team Description 01/01/2021 Orders Only [facility] Naveen Casiano, [facility] [place] osteoarthritis of left [address] [place] [address] knee (Primary Dx) [place] [phone] Social History Tobacco Use Types Packs/Day Years Used Date Smoking Tobacco: Never Smokeless Tobacco: Never Alcohol Use Standard Drinks/Week Comments Yes 0 (1 standard drink = 0.6 oz pure alcoho l) rare Sex Assigned at Date Recorded Female 03/04/2020 12:33 PM PROJECT DEVELOPMENT DIRECTOR COVID-19 Exposure Response Date Recorded In the last month, have you been in contact with No / Unsure 12/03/2020 8:01 PM CDT someone who was confirmed or suspected to have Coronavirus / COVID-19? documented as of this encounter Plan of Treatment Upcoming Encounters Date Type Specialty Care Team Description 02/09/2022 Virtual Visit Surgery Mindi Llanes PA-C [address] [facility] [address] [place] [address] (Wo rk) documented as of this encounter [...] the Xpert Xpress SARS-CoV-2 Assay on the E4 [employer]. A dditional information about this [...] COVID-19. This test was validated by the [facility]. This lab oratory is certified under the Clinical Laboratory Improvement Amen dments of 1987 (CLIA-88) as qualified to perform high complexity lab oratory testing. Naveen Casiano MD LAB - MICRO GENERAL ORDERABL ES Performing Organization Address City/State/ZIP Code Phon e Number [facility] [place] [address] Diag. Lab [address] [facility], Room [address]297 [facility] Infectious [place], [place] [phone] Diseases Diagnostic [phone], [facility] Lab (IDDL) [address] [facility], Room D297 documented in this encounter Visit Diagnoses Diagnosis Post-traumatic osteoarthritis of left kn ee - Primary Secondary localized osteoarthrosis, lowe r leg documented in this encounter Additional Health Concerns Assessment Noted Time PHQ-9 Depression Total Score: 0 02/26/2020 1:30 PM PROJECT DEVELOPMENT DIRECTOR documented as of this encounter Care Teams Tabulating Supervisor Relationship Specialty Start Date End Date Nikita Gamble PCP - General Family Medicine 05/26/20 [facility] [address] [place] [address] Expeller Operator Dietitian, Registered 05/25/18 [facility] [place] [address] Naveen Casiano MD Assigned PCP 11/16/20 [address] [place] [address] Harlan Lin Assigned Endocrinology 12/07/20 08/01/21 MD [place] Provider NO INFO AVAILABLE documented as of this encounter
--- OUTSIDE RECORDS SUMMARY | 2022-01-24 17:26 | XMS_ITS ---
:1965 Author Name Lulu Snow Care Team Providers Name Role Phone Lulu Snow Unavailable Unavailable PROBLEMS Type Condition ICD9-CM Code [id number] Code Onset Condition SNO MED Code Dates Status Problem Urge incontinence N39.41 Active 87 682027 ALLERGIES Substance Reaction Event Type Date Status Ibuprofen Unknown Drug Allergy Jan, Active ENCOUNTERS Encounter Location Date Diagnosis [facility] [address] [facility] [address], [place], [place] [id number] IMMUNIZATIONS No Known Immunizations SOCIAL HISTORY Qualifiers Date Never Smoker REASON FOR REFERRAL Reason Urge Incontinence Referring Provider First Name Lulu Referring Provider Last Name Gwendolyn Referring Provider Specialty Lawyer Criminal and gynecolo [facility] Referred Organization [facility] Referred Provider Huyen Baird Referred Address [address] [place], [id number] Referred Provider Specialty Lawyer Criminal and gynecolog ist FUNCTIONAL STATUS PLAN OF CARE Activity Details Referral Urge Incontinence, Huyen cavanaugh, [address] [place], [place], [phone], VITAL SIGNS MEDICATIONS Medication Instructions Dosage Frequency [...] Dates [facility] [address] [facility] self Marnie [phone] [phone] Jadiel TSANG [phone] MEDICAL (GENERAL) HISTORY Type Description Date Medical [...]
--- OUTSIDE RECORDS SUMMARY | 2022-01-24 17:26 | XMS_ITS | Encounter Summary ---
:1965 Author Organization [place] Address [address] [facility] [place] [address] Care Team Providers Name Role Phone Jocelyn Davidson RENATA Unavailable Nikita Gamble Primary Care Provider Naveen Casiano MD Unavailable Mikki Blevins MD Unavailable Mikki Blevins MD Unavailable Mindi Llanes PA-C Unavailable [phone] Reason for Visit Reason Onset Date Comments No Show No Show 10/20/2021 Encounter Details Date Type Department Care Team Description 10/20/2021 Virtual Visit [facility] Mikki Blevins MD No-show for Specialty Clinic [place] [facility] appointm ent (Primary [place] [facility] Dx) [address] [facility] [address] [address] [place] [address] [phone] Social History Tobacco Use Types Packs/Day Years Used Date Smoking Tobacco: Never Smokeless Tobacco: Never Alcohol Use Standard Drinks/Week Comments Yes 0 (1 standard drink = 0.6 oz pure alcoho l) rare Sex Assigned at Date Recorded Female 03/04/2020 12:33 PM 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 documented in this encounter Plan of Treatment Upcoming Encounters Date Type Specialty Care Team Description 02/09/2022 Virtual Visit Surgery Mindi Llanes PA-C [address] [place] [id number] (Wo rk) documented as of this encounter Visit Diagnoses Diagnosis No-show for appointment - Primary documented in this encounter Additional Health Concerns Assessment Noted Time PHQ-9 Depression Total Score: 0 02/26/2020 1:30 PM CREDIT BALANCE SPECIALIST documented as of this encounter Care Teams Traveling Secretary Relationship Specialty Start Date End Date Nikita Gamble PCP - General Family Medicine 05/26/[address] Pet Resort Concierge Dietitian, Registered 05/25/18 [facility] [address] [place] [address] [place] [address] Naveen Casiano MD Assigned PCP 11/16/20 [address] [place] [address] Mikki Blevins MD MD Endocrinology, 05/07/21 909 [facility] Diabetes, and [facility] [address] Mikki Blevins MD Assigned Endocrinology 08/02/21 [facility] [place], [place] [id number] Mindi Llanes Assigned Surgical 09/26/21 PRETTY Macias Provider [address] [place] [address] documented as of this encounter
--- OUTSIDE RECORDS SUMMARY | 2022-01-24 17:26 | XMS_ITS | Encounter Summary ---
:1965 Author Organization [place] Address [address] [facility] [place] [address] Care Team Providers Name Role Phone Jocelyn Davidson RENATA Unavailable Nikita Gamble Primary Care Provider Naveen Casiano MD Unavailable Mikki Blevins MD Unavailable Mikki Blevins MD Unavailable Reason for Visit Reason Onset Date Comments Class 2 severe obesity with serious comorbidity and body ma No Show 09/08/2021 Encounter Details Date Type Department Care Team Description 09/08/[address] 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 documented in this encounter Plan of Treatment Upcoming Encounters Date Type Specialty Care Team Description 02/09/2022 Virtual Visit Surgery Mindi Llanes PA-C [address] [place] [address] (Wo rk) documented as of this encounter Visit Diagnoses Diagnosis No-show for appointment - Primary documented in this encounter Additional Health Concerns Assessment Noted Time PHQ-9 Depression Total Score: 0 02/26/2020 1:30 PM AP[employer]ENCE [employer]CH[employer] DEAN documented as of this encounter Care Teams Piano Professor Relationship Specialty Start Date End Date Nikita Gamble PCP - General Family Medicine 05/26/20 [facility] [address] [place] [address] Deliverer Outside Dietitian, Registered 05/25/18 [facility] [address] [place] [address] [place] [address] Naveen Casiano MD Assigned PCP 11/16/20 [address] [place], [place] [phone] Mikki Blevins MD MD Endocrinology, 05/07/21 909 [facility] Diabetes, and [place], [place] Metabolism [address] Mikki Blevins MD Assigned Endocrinology 08/02/21 [place] [place] [address] documented as of this encounter
--- OUTSIDE RECORDS SUMMARY | 2022-01-24 17:26 | XMS_ITS | Encounter Summary ---
:1965 Author Organization [place] Address [address] 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 documented as of this encounter Plan of Treatment Upcoming Encounters Date Type Specialty Care Team Description 02/09/2022 Virtual Visit Surgery Mindi Llanes PA-C [address] [place] [address] (Wo rk) documented as of this encounter Visit Diagnoses Not on filedocumented in this encounter Additional Health Concerns Assessment Noted Time PHQ-9 Depression Total Score: 0 02/26/2020 1:30 PM AGRICULTURE TECHNICIAN documented as of this encounter Care Teams Tower Control Operator Relationship Specialty Start Date End Date Nikita Gamble PCP - General Family Medicine 05/26/[address] [place] [address] Acid Supervisor Dietitian, Registered 05/25/18 [facility] [address] [place] [address] [place] [address] Naveen Casiano MD Assigned PCP 11/16/20 [address] [place], [place] [phone] Harlan Lin Assigned Endocrinology 12/07/20 08/01/21 MD Bassam Provider NO INFO AVAILABLE Mikki Blevins MD MD Endocrinology, 05/07/21 909 [facility] Diabetes, and [place], [place] Metabolism [address] documented as of this encounter
--- OUTSIDE RECORDS SUMMARY | 2022-01-24 17:26 | XMS_ITS | Encounter Summary ---
:1965 Author Organization [place] Address [address] [facility] [place] [address] Care Team Providers Name Role Phone Jocelyn Davidson RENATA Unavailable Nikita Gamble Primary Care Provider Naveen Casiano MD Unavailable Harlan Lin MD Unavailable Unavailable Mikki Blevins MD Unavailable Reason for Visit Reason Comments Medication Refill levothyroxine (SYNTHROID/LEV OTHROID) 175 MCG tablet Encounter Details Date Type Department Care Team Description 06/22/2021 Refill [facility] [place] MD (levothyroxine [address] [facility] NO INFO (SYNTHROID/LEVOTHROID) [place], [place] AVAILABLE 175 MCG tab let) [id number] Social History Tobacco Use Types Packs/Day Years Used Date Smoking Tobacco: Never Smokeless Tobacco: Never Alcohol Use Standard Drinks/Week Comments Yes 0 (1 standard drink = 0.6 oz pure alcoho l) rare Sex Assigned at Date Recorded 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 documented as of this encounter Miscellaneous Notes [...] Virtual Visit Surgery Mindi Llanes PA-C [address] [facility] [address] [place], [place] [address] (Wo rk) documented as of this encounter Visit Diagnoses Diagnosis 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 documented in this encounter Additional Health Concerns Assessment Noted Time PHQ-9 Depression Total Score: 0 02/26/2020 1:30 PM SALES TRADER documented as of this encounter Care Teams Payroll Clerk Relationship Specialty Start Date End Date Nikita Gamble PCP - General Family Medicine 05/26/20 [facility] [address] [place] [address] Design Sales Consultant Dietitian, Registered 05/25/18 [facility] [address] [place] [address] [place] [address] Naveen Casiano MD Assigned PCP 11/16/20 [address] [place] [address] Harlan Lin Assigned Endocrinology 12/07/20 08/01/21 MD Bassam Provider NO INFO AVAILABLE Mikki Blevins MD MD Endocrinology, 05/07/21 9[address] [facility] Diabetes, and [place], [place] Metabolism [address] documented as of this encounter
--- OUTSIDE RECORDS SUMMARY | 2022-01-24 17:26 | XMS_ITS | Encounter Summary ---
:1965 Author Organization [place] Address [address] [facility] [place] [address] Care Team Providers Name Role Phone Jocelyn Davidson Bran YANEZ Unavailable Nikita Gamble Primary Care Provider Naveen Casiano MD Unavailable Harlan Lin MD Unavailable Unavailable Reason for Visit Reason Comments Medication Refill Encounter Details Date Type Department Care Team Description 03/14/2021 Refill [facility] Annette Alvarez, Medication Refill [address] [phone] [place] [address] (Wo rk) Social History Tobacco Use Types Packs/Day Years Used Date Smoking Tobacco: Never Smokeless Tobacco: Never Alcohol Use Standard Drinks/Week Comments Yes 0 (1 standard drink = 0.6 oz pure alcoho l) rare Sex Assigned at Date Recorded Female 03/04/2020 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 documented as of this encounter Miscellaneous Notes Telephone Encounter - Kandi Rooney RN - 03/17/2021 8:49 AM CST Routing refill request to provider for review/approval because: Labs out of range: TSH Patient needs to be seen because it has been more than 1 year since last office visit as patient seen Annette Alvarez Y LEVEL STAFF ACCOUNTANT documented in this encounter Plan of Treatment Upcoming Encounters Date Type Specialty Care Team Description 02/09/2022 Virtual Visit Surgery Mindi Llanes PA-C [address] [facility] [address] [place] [address] (Wo rk) documented as of this encounter Visit Diagnoses Diagnosis Type 1 diabetes mellitus with stage 3a c hronic kidney disease (H) - Primary 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 documented in this encounter Additional Health Concerns Assessment Noted Time PHQ-9 Depression Total Score: 0 02/26/2020 1:30 PM ENTRY LEVEL STAFF ACCOUNTANT documented as of this encounter Care Teams Cream Separator Operator Relationship Specialty Start Date End Date Nikita Gamble PCP - General Family Medicine 05/26/[address] Refrigeration Installer Dietitian, Registered 05/25/[address] [place] [address] Naveen Casiano MD Assigned PCP 11/16/20 [address] [place], [place] [phone] Harlan Lin Assigned Endocrinology 12/07/20 08/01/21 MD Bassam Provider NO INFO AVAILABLE documented as of this encounter
--- OUTSIDE RECORDS SUMMARY | 2022-01-24 17:26 | XMS_ITS | Encounter Summary ---
:1965 Author Organization [employer] Address [address] [facility] [place] [address] Care Team Providers Name Role Phone Jocelyn Davidson RENATA Unavailable Nikita Gamble Primary Care Provider Naveen Casiano MD Unavailable Mikki Blevins MD Unavailable Mikki Blevins MD Unavailable Mindi Llanes PA-C Unavailable Reason for Visit Reason Onset Date Comments Refill Request 12/24/2021 phentermine Encounter Details Date Type Department Care Team Description 12/24/2021 Telephone [facility] Mindi Llanes Refill Request Surgical Weight Loss Leah Macias (phentermine) [address] [place] [address] [place] [address] [phone] Social History Tobacco Use Types Packs/Day Years Used Date Smoking Tobacco: Never Smokeless Tobacco: Never Alcohol Use Standard Drinks/Week Comments Yes 0 (1 standard drink = 0.6 oz pure alcoho l) rare Sex Assigned at Date Recorded Female 03/04/2020 12:33 PM CASE LINER documented as of this encounter Miscellaneous Notes Telephone Encounter - Alix Marquez, RN - 12/25/2021 8:20 AM CDT Phentermine refilled 12/24/21. Alix Kim, MS, RD, RN Telephone Encounter - Trinidad Lamb - 12/24/2021 4:22 PM CDT Reason for Call: Medication or medication refill: Do you use a [facility]? Name of the pharmacy and phone number for the current request: [id number] [place], [place] - [address] [address] ( ) Name of the medication requested: phentermine Other request: Pt scheduled soonest available appt for f/u and would like a refill Call taken on 12/24/2021 at 4:22 PM by Trinidad Lamb documented in this encounter Plan of Treatment Upcoming Encounters Date Type Specialty Care Team Description 02/09/2022 Virtual Visit Surgery Mindi Llanes PA-C [address] [place] [address] (Wo rk) documented as of this encounter Visit Diagnoses Not on filedocumented in this encounter Additional Health Concerns Assessment Noted Time PHQ-9 Depression Total Score: 0 02/26/2020 1:30 PM CASE LINER documented as of this encounter Care Teams Director Of Business Continuity Relationship Specialty Start Date End Date Nikita Gamble PCP - General Family Medicine 05/26/20 [facility] [address] [place] [address] Oracle Iam Consultant Dietitian, Registered 05/25/18 [facility] [place] [address] Naveen Casiano MD Assigned PCP 11/16/20 [address] [place], [place] [phone] Mikki Blevins MD MD Endocrinology, 05/07/21 909 [facility] Diabetes, and [place], [place] Metabolism [address] Mikki Blevins MD Assigned Endocrinology 08/02/21 [facility] [place], [place] [phone] Mindi Llanes Assigned Surgical 09/26/21 [facility] Provider [address] [place] [address] documented as of this encounter
--- OUTSIDE RECORDS SUMMARY | 2022-01-24 17:26 | XMS_ITS | Encounter Summary ---
:1965 Author Organization [place] Address [address] [facility] [place] [address] Care Team Providers Name Role Phone Jocelyn Davidson RENATA Unavailable Nikita Gamble Primary Care Provider Naveen Casiano MD Unavailable Mikki Blevins MD Unavailable Mikki Blevins MD Unavailable Mindi Llanes PA-C Unavailable [phone] Encounter Details Date Type Department Care Team Description 09/29/[address] 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 documented as of this encounter Progress Notes Haven Keen - 09/29/2021 8:30 AM CDT No charge/no show documented in this encounter Plan of Treatment Upcoming Encounters Date Type Specialty Care Team Description 02/09/2022 Virtual Visit Surgery Mindi Llanes PA-C [address] [place] [id number] (Wo rk) documented as of this encounter Visit Diagnoses Not on filedocumented in this encounter Additional Health Concerns Assessment Noted Time PHQ-9 Depression Total Score: 0 02/26/2020 1:30 PM ANIMAL THERAPIST documented as of this encounter Care Teams Automation And Controls Instructor Relationship Specialty Start Date End Date Nikita Gamble PCP - General Family Medicine 05/26/[address] Director Of Personnel Dietitian, Registered 05/25/[address] [place] [address] Naveen Casiano MD Assigned PCP 11/16/20 [address] [place] [address] Mikki Blevins MD MD Endocrinology, 05/07/[address] [facility] Diabetes, and [place], [place] Metabolism [address] Mikki Blevins MD Assigned Endocrinology 08/02/21 [facility] [place] [address] Mindi Llanes Assigned Surgical 09/26/21 [facility]ias Provider [address] [place] [id number] documented as of this encounter
--- OUTSIDE RECORDS SUMMARY | 2022-01-24 17:26 | XMS_ITS | Encounter Summary ---
:1965 Author Organization [place] Address [address] [facility] [place] [address] Care Team Providers Name Role Phone Jocelyn Davidson RENATA Unavailable Nikita Gamble Primary Care Provider Naveen Casiano MD Unavailable Harlan Lin MD Unavailable Unavailable Encounter Details Date Type Department Care Team Description 01/03/2021 Lab [facility] Naveen Casiano MD [facility] [address] [facility] osteoarthritis of left knee [address] [place] [phone] Social History Tobacco Use Types Packs/Day Years Used Date Smoking Tobacco: Never Smokeless Tobacco: Never Alcohol Use Standard Drinks/Week Comments Yes 0 (1 standard drink = 0.6 oz pure alcoho l) rare Sex Assigned at Date Recorded Female 03/04/2020 12:33 PM LAB 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 A dditional information about this [...] COVID-19. This test was validated by the [facility] Infectious Diseases Diagnostic Laboratory. This lab oratory is certified under the Clinical Laboratory Improvement Amen dments of 1987 (CLIA-88) as qualified to perform high complexity lab oratory testing. Naveen Casiano MD LAB - MICRO GENERAL ORDERABL ES Performing Organization Address City/State/ZIP Code Phon e Number [facility] [place] [phone] Diag. 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, lowe r leg documented in this encounter Additional Health Concerns Assessment Noted Time PHQ-9 Depression Total Score: 0 02/26/2020 1:30 PM LAB INSTRUCTOR documented as of this encounter Care Teams Facilities Operations Technician Relationship Specialty Start Date End Date Nikita Gamble PCP - General Family Medicine 05/26/20 [facility] [address] [place] [address] Wood Milling Machine Operator Dietitian, Registered 05/25/18 [facility] [address] [place] [address] [place] [address] Naveen Casiano MD Assigned PCP 11/16/20 [address] [place], [place] [phone] Harlan Lin Assigned Endocrinology 12/07/20 08/01/21 MD Bassam Provider NO INFO AVAILABLE documented as of this encounter
--- OUTSIDE RECORDS SUMMARY | 2022-01-24 17:26 | XMS_ITS | Encounter Summary ---
:1965 Author Organization [place] Address [address] [facility] [place] [address] Care Team Providers Name Role Phone Jocelyn Davidson RD Unavailable Nikita Gamble Primary Care Provider Naveen Casiano MD Unavailable Harlan Lin MD Unavailable Unavailable Mikki Blevins MD Unavailable Mikki Blevins MD Unavailable Mindi Llanes PA-C Unavailable [phone] Reason for Visit Reason Onset Date Comments Diabetes Education 12/05/2020 Encounter Details Date Type Department Care Team Description 12/05/2020 Telephone [facility] Harlan Lin gail Education [place] Endocrinolog y MD Bassam [address] [facility] [place] [address] AVAILABLE [phone] Social History Tobacco Use Types Packs/Day Years Used Date Smoking Tobacco: Never Smokeless Tobacco: Never Alcohol Use Standard Drinks/Week Comments Yes 0 (1 standard drink = 0.6 oz pure alcoho l) rare Sex Assigned at Date Recorded Female 03/04/2020 12:33 PM 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 [place] [facility] Scheduling documented in this encounter Plan of Treatment Upcoming Encounters Date Type Specialty Care Team Description 02/09/2022 Virtual Visit Surgery Mindi Llanes PA-C [address] [facility] [address] [place] [address] (Wo rk) documented as of this encounter Visit Diagnoses Not on filedocumented in this encounter Additional Health Concerns Assessment Noted Time PHQ-9 Depression Total Score: 0 02/26/2020 1:30 PM ABSORPTION AND ADSORPTION ENGINEER documented as of this encounter Care Teams Wire Temperer Relationship Specialty Start Date End Date Nikita Gamble PCP - General Family Medicine 05/26/20 [facility] [address] [place] [address] Contact Lens Curve Grinder Dietitian, Registered 05/25/18 [facility] [address] [place] [address] [place] [address] Naveen [place] MD Assigned PCP 11/16/20 [address] [place] [address] Harlan Lin Assigned Endocrinology 12/07/20 08/01/21 MD Bassam Provider NO INFO AVAILABLE Mikki Blevins MD MD Endocrinology, 05/07/21 909 [facility] Diabetes, and [place], [place] Metabolism [address] Mikki Blevins MD Assigned Endocrinology 08/02/21 [place] [facility] [place], [place] [phone] Mindi Llanes Assigned Surgical 09/26/21 PRETTY Macias Provider [address] [place] [address] documented as of this encounter
--- OUTSIDE RECORDS SUMMARY | 2022-01-24 17:26 | XMS_ITS | Encounter Summary ---
:1965 Author Organization [place] Address [address] [facility] [place] [address] Care Team Providers Name Role Phone Jocelyn Davidson RENATA Unavailable Nikita Gamble Primary Care Provider Naveen Casiano MD Unavailable Mikki Blevins MD Unavailable Mikki Blevins MD Unavailable Mindi Llanes PA-C Unavailable Reason for Visit Reason Comments Medication Refill Encounter Details Date Type Department Care Team Description 11/09/2021 Refill [facility] Mikki Blevins MD Medication Refill [facility] [address] [place] [address] [place], [place] [phone] (W ork) [address] [phone] Social History Tobacco Use Types Packs/Day Years Used Date Smoking Tobacco: Never Smokeless Tobacco: Never Alcohol Use Standard Drinks/Week Comments Yes 0 (1 standard drink = 0.6 oz pure alcoho l) rare Sex Assigned at Date Recorded Female 03/04/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 documented as of this encounter Miscellaneous Notes [...] PA-C [address] [facility] [address] [place] [address] (Wo rk) documented as of this encounter Visit Diagnoses Diagnosis 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 documented in this encounter Additional Health Concerns Assessment Noted Time PHQ-9 Depression Total Score: 0 02/26/2020 1:30 PM TIN PLATER documented as of this encounter Care Teams Nursing Admin Relationship Specialty Start Date End Date Nikita Gmable PCP - General Family Medicine 05/26/[address] Governor Assembler Hydraulic Dietitian, Registered 05/25/18 [facility] [address] [place] [address] [place] [address] Naveen [place] MD Assigned PCP 11/16/20 [address] [place], [place] [phone] Mikki Blevins MD MD Endocrinology, 05/07/21 909 [facility] Diabetes, and [place], [place] Metabolism [address] Mikki Blevins MD Assigned Endocrinology 08/02/21 [facility] [place] [address] Mindi Llanes Assigned Surgical 09/26/21 PRETTY [facility]ias Provider [address] [place] [address] documented as of this encounter
--- OUTSIDE RECORDS SUMMARY | 2022-01-24 17:26 | XMS_ITS | Clinical Summary ---
:1965 Author Organization [place] Address [address] [place] [address] Care Team Providers Name Role Phone Jocelyn Davidson RENATA Unavailable Nikita Gamble Primary Care Provider Naveen Casiano MD Unavailable Mikki Blevins MD Unavailable Mikki Blevins MD Unavailable Mindi Llanes PA-C Unavailable [phone] Allergies No known active allergies Medications Medication Sig Dispensed Refills Start Date End Date Status Citalopram Take 40 mg by mouth 0 Active Hydrobromide (CELEXA daily PO) Topiramate (TOPAMAX Take 200 mg by 0 Active PO) mouth daily aspirin 81 MG tablet Take by mouth daily 0 Active Pyridoxine HCl 0 Activ e (VITAMIN B6 PO) Calcium 0 Active Carb-Cholecalciferol (CALCIUM + D3 PO) sennosides (SENOKOT) Take 2 tablets by 0 Active 8.6 MG tablet mouth daily INSULIN PUMP - Date last updated: 02/21/19 0 019 Active OUTPATIENTIndications T:Slim x2 : Type 1 diabetes BASAL RATES and times: mellitus with 12 AM (midnight): 1.7 units/hour complications (H) CARB RATIO and times: 12 AM (midnight): 5.5 Corection Factor (Sensitivity) and times: 12 AM (midnight): 23 mg/dL BLOOD GLUCOSE TARGET and times: 12 AM (midnight): 120 Active Insulin Time: 4 hours Using T:Connect: Yes Dexcom Sharing Code: [id number] blood glucose USE TO TEST BLOOD 200 each 3 04/16/2019 Active (ACCU-CHEK RADHA GLUCOSE LEVELS PLUS) test 2TIMES DAILY OR stripIndications: DIRECTED. Uncontrolled type 1 diabetes with renal manifestation, Type 1 diabetes mellitus with complications (H) insulin Use 1 syringe as 20 each 11 04/16/2019 Ac tive syringe-needle U-100 needed, during pump (30G X 1/2 0.5 ML) failure. 30G X 1/2 0.5 ML miscellaneousIndicati ons: Type 1 diabetes mellitus with complications (H) insulin pen needle Use 4 daily or as 100 each 3 03/05/2020 Active (B-D U/F) 31G X 5 MM directed. miscellaneous insulin degludec For pump failure 15 mL 1 03/05/2020 Active (TRESIBA) 200 UNIT/ML only. Inject 39 pen units every 24 hours. methocarbamol Take 1 tablet (500 40 tablet 0 09/26/2020 Active (ROBAXIN) 500 MG mg) by mouth 4 tabletIndications: times daily as Back muscle spasm needed for muscle spasms SUMAtriptan (IMITREX) 1 qd prn VÁSQUEZ . August 03 tablet 1 11/06/2020 Active 100 MG repeat 2 hours tabletIndications: Migraine with status migrainosus, not intractable, unspecified migraine type acetone urine Use one strip as 100 strip 3 12/10/2020 Active (KETOSTIX) test needed to test stripIndications: urine for ketones Type 1 diabetes mellitus with stage 3a chronic kidney disease (H) insulin aspart For insulin pump 110 mL 1 06/30/2021 Active (NOVOLOG VIAL) 100 use. Up to 125 UNITS/ML units per day. vialIndications: Type 1 diabetes mellitus with stage 3a chronic kidney disease (H) levothyroxine Take 1 tablet (200 90 tablet 3 07/28/2021 Active (SYNTHROID/LEVOTHROID mcg) by mouth daily ) 200 MCG tabletIndications: Hypothyroidism due to acquired atrophy of thyroid Glucagon, rDNA, INJECT 1 MG BY 2 kit 0 11/13/2021 Active (GLUCAGON EMERGENCY) INTRAMUSCULAR ROUTE 1 MG KITIndications: NEEDED FOR LOW Hypothyroidism due to BLOOD SUGAR acquired atrophy of thyroid phentermine Take 0.5 tablets 30 tablet 1 12/24/2021 Active (ADIPEX-P) 37.5 MG (18.75 mg) by mouth tabletIndications: every morning for Class 2 severe 10 days then may obesity due to excess increase to 1 calories with serious tablet if needed comorbidity and body following this mass index (BMI) of 36.0 to 36.9 [...] for appointment (Primary Dx) 12/24/2021 Telephone Surgery Mindi Llanes Refill Reque st PRETTY Macias (phentermine) 12/20/2021 Refill Surgery Mindi Llanes Medication R tonya Macias PA-C 11/09/2021 Refill Endocrinology Mikki Blevins MD Medicati on Refill from Last 3 Months Immunizations Name Administration [...] at Date Recorded 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 Last Filed Vital Signs Vital Sign Reading Time Taken Comments Blood Pressure 128/68 11/06/2020 3:31 PM CDT Pulse 75 11/06/2020 3:31 PM CDT Temperature 37 ??C (98.6 ??F) 11/06/2020 3:31 PM CDT Respiratory Rate 19 02/26/2020 1:31 PM PYTHON PROGRAMMER Oxygen Saturation 96% 11/06/2020 3:31 PM CDT Inhaled Oxygen Concentration - - Weight 120.2 kg (265 lb) 09/22/2021 9:21 AM CDT pt repo rted Height 180.3 cm (5' 11) 09/22/2021 9:21 AM CDT pt repo rted Body Mass Index 36.96 09/22/2021 9:21 AM CDT Plan of Treatment Upcoming Encounters Date Type Specialty Care Team Description 02/09/2022 Virtual Visit Surgery Shraddha, Mindi Macias, MATTIEC [address] [place] [id number] (Wo rk) Health Maintenance Due Date Last [...] 07/06/2021 01/05/2021, 12/02/2020, 03/05/2020, Additional history exists LIPID 01/05/2022 01/05/2021, 03/05/2020 HPV TEST 06/09/2022 06/09/2017 PAP 06/09/2022 06/09/2017, 06/09/2017 DTAP/TDAP/TD IMMUNIZATION 01/11/2026 01/12/2016, 01/12/2016 , (4 - Td or Tdap) 08/25/2006, Additional history exists COLONOSCOPY 06/02/2030 06/02/2020 COLORECTAL CANCER SCREENING 06/02/2030 HEPATITIS B IMMUNIZATION Completed 04/16/2014, 10/18/2013, 05/31/2013 ALK PHOS Completed 12/25/2014 URINALYSIS Completed 12/25/2014 PHOSPHORUS Completed 08/16/2019 INFLUENZA VACCINE Completed 01/01/2022, 12/16/2020, 12/16/2020, Additional history exists IPV IMMUNIZATION Aged Out No longer eligi ble based on patient 's age to complete this topic MENINGITIS IMMUNIZATION Aged Out No longe r eligible based on patient 's age to complete this topic Insurance Payer Benefit Plan / Subscriber ID Effective Phone Address T ype Group Dates [facility] [id number] 2016-Pres [phone] [address] HMO ADVANTAGE ent [address] [place] [address] Care Teams Herb Digger Relationship Specialty Start Date End Date Nikita Gamble PCP - General Family Medicine 05/26/20 [facility] [address] [place] [address] Agribusiness Internship Dietitian, Registered 05/25/18 [facility] - [address] [place] [address] Naveen Casiano MD Assigned PCP 11/16/20 [address] [place] [address] Mikki Blevins MD MD Endocrinology, 05/07/21 [address] [facility] Diabetes, and [place], [place] Metabolism [phone] Mikki Blevins MD Assigned Endocrinology 08/02/21 [facility] [place] [address] Mindi Llanes Assigned Surgical 09/26/21 [facility] [address] [facility] [facility] [address] [place] [id number]
--- OUTSIDE RECORDS SUMMARY | 2022-01-24 17:26 | XMS_ITS | Encounter Summary ---
:1965 Author Organization [place] Address [address] [place] [place] [address] Care Team Providers Name Role Phone Jocelyn Davidson RENATA Unavailable Nikita Gamble Primary Care Provider Naveen Casiano MD Unavailable Mikki Blevins MD Unavailable Mikki Blevins MD Unavailable Mindi Llanes PA-C Unavailable Reason for Visit Reason Onset Date Comments Medication Question 09/14/2021 OZEMPIC Encounter Details Date Type Department Care Team Description 09/14/2021 Telephone [facility] Mikki Blevins MD Medication Question Specialty Clinic Adithya na [place] [facility] (OZEMPIC) [address] [address] [place] [address] [phone] Social History Tobacco Use Types Packs/Day Years Used Date Smoking Tobacco: Never Smokeless Tobacco: Never Alcohol Use Standard Drinks/Week Comments Yes 0 (1 standard drink = 0.6 oz pure alcoho l) rare Sex Assigned at Date Recorded 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 Pt [...] Virtual Visit Surgery Mindi Llanes PA-C [address] [facility] [address] [place] [address] (Wo rk) documented as of this encounter Visit Diagnoses Not on filedocumented in this encounter Additional Health Concerns Assessment Noted Time PHQ-9 Depression Total Score: 0 02/26/2020 1:30 PM FREIGHT DISPATCHER documented as of this encounter Care Teams Rice Farmworker Relationship Specialty Start Date End Date Nikita Gamble PCP - General Family Medicine 05/26/20 [facility] [address] [place] [address] Grinding Machine Operator Portable Dietitian, Registered 05/25/18 [facility] [address] [place] [address] [place] [address] Naveen Casiano MD Assigned PCP 11/16/20 [address] [place], [place] [phone] Mikki Blevins MD MD Endocrinology, 05/07/21 [address] [facility] Diabetes, and [place], [place] Metabolism [phone] Mikki Blevins MD Assigned Endocrinology 08/02/21 [facility] [place] [facility] Provider CLINIC [place] [id number] Mindi Llanes Assigned Surgical 09/26/21 PRETTY Macias Provider [address] [place] [address] documented as of this encounter
--- OUTSIDE RECORDS SUMMARY | 2022-01-24 17:26 | XMS_ITS | Encounter Summary ---
:1965 Author Organization [place] Address [address] [facility] [place] [address] Care Team Providers Name Role Phone Jocelyn Davidson RENATA Unavailable Nikita Gamble Primary Care Provider Naveen Casiano MD Unavailable Harlan Lin MD Unavailable Unavailable Encounter Details Date Type Department Care Team Description 01/05/2021 Lab [facility] Typ e 1 diabetes mellitus with [facility] stage 3a chronic kidney [address] [facility] disease (H) [place], [place] [phone] Social History Tobacco Use Types Packs/Day Years Used Date Smoking Tobacco: Never Smokeless Tobacco: Never Alcohol Use Standard Drinks/Week Comments Yes 0 (1 standard drink = 0.6 oz pure alcoho l) rare Sex Assigned at Date Recorded Female 03/04/2020 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 documented as of this encounter Plan of Treatment Upcoming Encounters Date Type Specialty Care Team Description 02/09/2022 Virtual Visit Surgery Mindi Llanes PA-C [address] [facility] [address] [place] [address] (Wo rk) documented as of this encounter [...] City/State/ZIP Code Phon e Number CR LAB[facility]ATORY [facility] [place] [address] [facility] [address] [facility] Lab (no room number, 1st floor of clinic) CR LABORATORY [place], [place] [phone] [facility] [phone] Lab [address] [facility] Lab (no room number, [facility] of [facility]) Albumin Random Urine Quantitative with Creat [...] LAB - URINE ORDERABLES Performing Organization Address City/State/[facility] Code Phon e Number OX LABORATORY [place], [place] [phone] [place] [facility] [address] [place] [address] Lab (no room number, 1st floor of clinic) OX LABORATORY [place], [place] [phone] [place] [phone] [address] Lab (no room number, 1st floor [...] City/State/ZIP Code Phon e Number OX LAB[facility]ATORY [facility] Clinic - [place], [place] [phone] [place] [facility] [address] Lab (no room number, 1st floor of clinic) O[facility] LABORATORY [place], [place] [phone] Clinic [place] [phone], [facility] [place] [facility] [address] Lab (no room number, 1st floor of clinic) (ABNORMAL) Lipid panel reflex to direct LDL Fasting (01/05/2021 3:03 PM CDT) [facility] gist Method Time Signature Cholesterol 203 [...] City/State/ZIP Code Phon e Number OX LABORATORY [facility] [place], [place] [phone] [place] [facility] [address] [place] [address] Lab (no room number, 1st floor of clinic) OX LABORATORY [place], [place] [phone] [facility] [place] [phone] [facility] [address] Lab (no room number, 1st floor of clinic) (ABNORMAL) BASIC METABOLIC PANEL (01/05/2021 3:03 PM CDT) [facility] gist Method Time Signature Sodium 134 [...] LAB - BLOOD ORDERABLES Performing Organization Address [facility] Phon e Number OX LABORATORY [place], [place] [phone] [place] [facility] [address] [place] [address] Lab (no room number, 1st floor of clinic) O[facility] LABORATORY [place], [place] [phone] [place] [facility] [address] Lab (no room number, 1st floor [...] LAB - BLOOD ORDERABLES Performing Organization Address [facility] Phon e Number OX LABORATORY [place], [place] [phone] [place] [facility] [address] [place] [address] Lab (no room number, 1st floor of clinic) O[facility] LABORATORY [place], [place] [phone] [place] [phone] [address] Lab (no room number, 1st floor of clinic) documented in this encounter Visit Diagnoses Diagnosis Type 1 diabetes mellitus with stage 3a c hronic kidney disease (H) documented in this encounter Additional Health Concerns Assessment Noted Time PHQ-9 Depression Total Score: 0 02/26/2020 1:30 PM KEY HOLDER documented as of this encounter Care Teams Ios Software Engineer Relationship Specialty Start Date End Date Nikita Gamble PCP - General Family Medicine 05/26/20 [facility] [address] [place] [address] Power Mule Operator Dietitian, Registered 05/25/[address] [place] [address] Naveen Casiano MD Assigned PCP 11/16/20 [address] [place], [place] [phone] Harlan Lin Assigned Endocrinology 12/07/20 08/01/21 [place] [facility] Provider NO INFO AVAILABLE documented as of this encounter
--- OUTSIDE RECORDS SUMMARY | 2022-01-24 17:26 | XMS_ITS | Encounter Summary ---
:1965 Author Organization [place] Address [address] [facility] [place] [address] Care Team Providers Name Role Phone StuartJocelyn [...] stage 3a (H) Mindi Llanes PA-C [address] [facility] [address] [place] [address] Referral ID Status Reason Start Date Expiration Date Visits V isits Requested Authorized [id number] Pending 09/22/2021 09/22/2022 1 1 Review Reason for Visit Reason Comments New Patient New mwm; ELIF Consultation (Routine: Next available opening) - Pending Review Specialty Diagnoses / Procedures Referred By Contact Refer red To Contact Bariatric Diagnoses Class 2 severe obesity with serious comorbidity and body mass index (BMI) of 36.0 to 36.9 in adult, unspecified obesity type (H) Mikki Belvins MD Weight Loss Clinic [facility] [address] [place] [address] [address] [place] [address] Phone: Fax: Referral ID Status Reason Start Date Expiration Date Visits V isits Requested Authorized [id number] Pending 07/28/2021 07/28/2022 1 1 Review Encounter Details Date Type Department Care Team Description 09/22/2021 Virtual Visit [facility] Mindi Llanes Class 2 severe obesity due to excess calories with serious comorbidity and body mass index (BMI) of 36.0 to 36.9 in adult (H) (Primary Dx); Surgical Weight Loss Leah Macias-Ashlee Type 1 diabetes mellitus with complicati ons (H); Clinic [place] [address] Chronic kidney disease, stag e 3a (H); [address] [facility] [address] Benign essential hypertension; [place] [address] Acquired hypothyroidism; [address] Uncontrolled type 1 diabetes with renal manifestation (H); [place] [phone] (Work) Migraine with status migrainosus, not in tractable, unspecified migraine type [phone] Social History Tobacco Use Types Packs/Day Years Used Date Smoking Tobacco: Never Smokeless Tobacco: Never Alcohol Use Standard Drinks/Week Comments Yes 0 (1 standard drink = 0.6 oz pure alcoho l) rare Sex Assigned at Date Recorded Female 03/04/2020 12: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 [email or web address] Goals: Add in short bursts of activity throughout you day. FOLLOW-UP: Please call [phone] to schedule your next visit in 8-10 [...] be resent by: Text to cell phone: [phone] Will anyone else be joining your video visit? No Video-Visit Details Type of service: Video Visit Video Start Time: 9:30 AM Video End Time:10:30 AM Originating Location (pt. Location): Home Distant Location (provider location): [facility] Platform used for Video Visit: [facility] Medical Weight Management Consult PATIENT: Marnie Duvall [...] NUTRITION REFERRAL PROGRAM OVERVIEW Reviewed options at [facility] [facility] including provider visits, group sales manager, 24 week healthylifestyle program, health coaching, food supplements, Get Moving program, and psychological support.All questions about weight loss program were answered. SURGICAL WEIGHT LOSS Option presented given pt BMI and current comorbid conditions. Website for bariatric online information session provided. Pt will review at home and we will discuss at our follow up visit. [email or web address] MEDICATIONS: We discussed healthy habits to assist [...] throughout you day. Follow up: Please call [phone] to schedule your next visit in 8-10 [...] food do you typically eat? Cup of burundian yogurt with blueberries and suger free jellos,angerine [...] foods like these: fried meats, brats, burgers, mongolian fries, pizza, cheese, chips, or ice cream. Once a Week Eat fast food (like [employer], Rx[employer]ault[employer], [employer]). Never Eat at a buffet or sit-down [...] hours Using T:Connect: Yes Dexcom Sharing Code: [id number] ??? insulin syringe-needle U-100 (30G X 1/2 [...] Notes Assessment & Plan Note - Mindi Llanes PA-C - 09/22/2021 10:37 AM CDTAssociated Problem(s): [...] Mindi Llanes PA-C [address] [facility] [address] [place] [address] (Wo rk) Scheduled Referrals Name Type Priority [...] Depression Total Score: 0 02/26/2020 1:30 PM SAUSAGE SMOKER documented as of this encounter Care Teams Baked And Graphite Inspector Relationship Specialty Start Date End Date Tony Ackerman PCP - General Family Medicine 05/26/20 [facility] [address] [place] [address] Fruit And Vegetable Parer Dietitian, Registered 05/25/18 [facility] [address] [place] [address] [place] [address] Naveen Casiano MD Assigned PCP 11/16/20 [address] [place], [place] [phone] Mikki Blevins MD MD Endocrinology, 05/07/[address] [facility] Diabetes, and [place], [place] Metabolism [address] Mikki Blevins MD Assigned Endocrinology 08/02/21 [facility] [place] [address] documented as of this encounter
--- OUTSIDE RECORDS SUMMARY | 2022-01-24 17:26 | XMS_ITS | Encounter Summary ---
:1965 Author Organization [place] Address [address] [facility] [place] [address] Care Team Providers Name Role Phone Jocelyn Davidson Bran YANEZ Unavailable Nikita Gamble Primary Care Provider Naveen Casiano MD Unavailable Mikki Blevins MD Unavailable Mikki Blevins MD Unavailable Reason for Visit Reason Onset Date Comments Left Message To Call 09/21/2021 Encounter Details Date Type Department Care Team Description 09/21/2021 Telephone [facility] Mindi Llanes Left Me ssage To Call Surgical Weight Loss Leah Macias [place] [address] [place] [address] [phone] Social History Tobacco Use Types Packs/Day Years Used Date Smoking Tobacco: Never Smokeless Tobacco: Never Alcohol Use Standard Drinks/Week Comments Yes 0 (1 standard drink = 0.6 oz pure alcoho l) rare Sex Assigned at Date Recorded Female 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 Liberty Ch MA documented in this encounter Plan of Treatment Upcoming Encounters Date Type Specialty Care Team Description 02/09/2022 Virtual Visit Surgery Mindi Llanes PA-C [address] [facility] [address] [place] [address] (Wo rk) documented as of this encounter Visit Diagnoses Not on filedocumented in this encounter Additional Health Concerns Assessment Noted Time PHQ-9 Depression Total Score: 0 02/26/2020 1:30 PM MILLWRIGHT SUPERVISOR documented as of this encounter Care Teams Graphic Design Professor Relationship Specialty Start Date End Date Nikita Gamble PCP - General Family Medicine 05/26/[address] Human Resource Consultant Dietitian, Registered 05/25/18 [facility] [address] [place] [address] [place] [address] Naveen Casiano MD Assigned PCP 11/16/20 [address] [place] [address] Mikki Blevins MD MD Endocrinology, 05/07/[address] [facility] Diabetes, and [place], [place] Metabolism [address] Mikki Blevins MD Assigned Endocrinology 08/02/21 [facility] Provider CLINIC [place], [place] [phone] documented as of this encounter
--- OUTSIDE RECORDS SUMMARY | 2022-01-24 17:26 | XMS_ITS | Encounter Summary ---
:1965 Author Organization [place] Address [address] [facility] [place] [address] Care Team Providers Name Role Phone Jocelyn Davidson RENATA Unavailable Nikita Gamble Primary Care Provider Naveen Casiano MD Unavailable Mikki Blevins MD Unavailable Mikki Blevins MD Unavailable Mindi Llanes PA-C Unavailable [phone] Reason for Visit Reason Comments Medication Refill Encounter Details Date Type Department Care Team Description 12/20/2021 Refill [facility] Surgical Thuan Llanes Medication Refill Weight Loss Clinic E alvaro Macias PA-C [address] [facility] out [address] [facility] [address] [place] [address] [place] [address] [phone] Social History Tobacco Use Types Packs/Day Years Used Date Smoking Tobacco: Never Smokeless Tobacco: Never Alcohol Use Standard Drinks/Week Comments Yes 0 (1 standard drink = 0.6 oz pure alcoho l) rare Sex Assigned at Date Recorded Female 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 documented as of this encounter Miscellaneous [...] Visit Surgery Mindi Llanes PA-C [address] [facility] [address] [place] [address] (Wo rk) documented as of this encounter Visit Diagnoses Diagnosis Class 2 severe obesity due to excess que ories with serious comorbidity and body mass index (BMI) of 36.0 to 36.9 in adult (H) documented in this encounter Additional Health Concerns Assessment Noted Time PHQ-9 Depression Total Score: 0 02/26/2020 1:30 PM HAND ROUTER OPERATOR documented as of this encounter Care Teams Highway Administrative Engineer Relationship Specialty Start Date End Date Nikita Gamble PCP - General Family Medicine 05/26/20 [facility] [address] [place] [address] Log Processor Operator Dietitian, Registered 05/25/18 [facility] [place] [address] Naveen Casiano MD Assigned PCP 11/16/20 [address] [place], [place] [phone] Mikki Blevins MD MD Endocrinology, 05/07/21 909 [facility] Diabetes, and [place], [place] Metabolism [address] Mikki Blevins MD Assigned Endocrinology 08/02/21 [facility] Provider CLIN[facility] [place], [place] [phone] Mindi Llanes Assigned Surgical 09/26/21 PRETTY Macias Provider [address] [facility] [address] [place] [address] documented as of this encounter
[2022-01-24 17:27] LABS: Ammonia* < 9.0 umol/L (13.1-30.0)
--- OUTSIDE RECORDS SUMMARY | 2022-01-24 17:27 | XMS_ITS | Encounter Summary ---
:1965 Author Organization [place] Address [address] [facility] [place] [address] Care Team Providers Name Role Phone StuartJocelyn [...] Expiration Date Visits Requ ested Visits Authorized [id number] Closed 12/03/2020 12/03/2021 1 1 Scheduling Instructions Jocelyn Davidson please. 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; [address] [place] [address] NO INFO Insulin pump in place NE AVAILABLE SHARAN Cox [phone] Social History Tobacco Use Types Packs/Day Years Used Date Smoking Tobacco: Never Smokeless Tobacco: Never Tobacco Cessation: Counseling Given: No Alcohol Use Standard Drinks/Week Comments Yes 0 (1 standard drink = 0.6 oz pure alcoho l) rare Sex Assigned at Date Recorded Female 03/04/2020 12:33 PM PERSONNEL ASSISTANT COVID-19 Exposure Response Date Recorded In the last month, have you been in contact with No / Unsure 12/02/2020 3:27 PM CDT someone who was confirmed or suspected to have Coronavirus / COVID-19? documented as of this encounter Progress Notes Harlan Lin MD - 12/03/2020 11:00 AM CDT Marnie [...] today. The email she has for her P21 account is listed as not being found. Remarks on prior issues with lows that resolved with lowering basal rates but has also taken to having scheduled snacks. She does not give insulin for these snacks. Notes she is having highs after her afternoon snack at 1545. Also having highs at [phone]. Dinner is [phone]. ROS: 10 point ROS neg other than [...] DM. 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 Exam: GENERAL: Healthy, alert and no [...] Location): Other office Distant Location (provider location): [facility] Platform used for Video Visit: Doximro Lin MD on 12/03/2020 at 11:31 AM documented in this encounter Plan of Treatment Upcoming Encounters Date Type Specialty Care Team Description 02/09/2022 Virtual Visit Surgery Mindi Llanes PA-C [address] [place] [address] (Wo rk) Scheduled Orders Name Type Priority [...] - BLOOD ORDERABLES Performing Organization Address City/[facility]/ZIP Code [place] [phone] [facility] [address] [facility] Lab (no room number, 1st floor of clinic) [facility] [place], [place] [phone] [facility] [phone] Lab [address] [facility] Lab (no room number, 1st floor [...] LAB - URINE ORDERABLES Performing Organization Address City/[facility]/ZIP [facility] Phon e Number O[facility]ORY [place], [place] [phone] [facility] [address] [place] [address] Lab (no room number, 1st floor of clinic) [facility] [place], [place] [phone] [facility] [phone], [facility] [address] Lab [...] City/State/ZIP Code Phon e Number O[facility] [place], [place] [phone] [facility] [phone] Lab (no room number, 1st floor of clinic) [facility] [place], [place] [phone] [facility] [phone] [address] Lab (no room number, 1st floor of clinic) (ABNORMAL) BASIC METABOLIC PANEL (01/05/2021 3:03 PM CDT) [facility] gist Method Time Signature Sodium 134 [...] - BLOOD ORDERABLES Performing Organization Address City/[facility]/ZIP [facility] Phon e Number [facility] [place], [place] [phone] [facility] [phone] Lab (no room number, 1st floor of clinic) [facility] [place], [place] [phone] [facility] [phone] [address] Lab (no room number, 1st floor [...] LAB - BLOOD ORDERABLES Performing Organization Address [facility] Phon e Number [facility]ORY [facility] [place], [place] [phone] [facility] [phone] Lab (no room number, 1st floor of clinic) [facility] [place], [place] [phone] [facility] 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 Insulin pump in place Insulin pump status documented in this encounter Additional Health Concerns Assessment Noted Time PHQ-9 Depression Total Score: 0 02/26/2020 1:30 PM PERSONNEL ASSISTANT documented as of this encounter Care Teams Paper Tube Cutter Relationship Specialty Start Date End Date Nikita Gamble PCP - General Family Medicine 05/26/20 [facility] [address] [place] [address] Commercial Lines Account Assistant Dietitian, Registered 05/25/18 [facility] [place] [address] Naveen Casiano MD Assigned PCP 11/16/20 [address] [place] [address] documented as of this encounter
--- OUTSIDE RECORDS SUMMARY | 2022-01-24 17:27 | XMS_ITS | Encounter Summary ---
:1965 Author Organization [place] Address [address] [place] [address]. [place] [address] Care Team Providers Name Role Phone Annette Alvarez KIM CHILD CARE COUNSELOR Unavailable [phone] Goran Lloyd Primary Care Provider Jocelyn Davidson RD Unavailable Encounter Details Date Type Department Care Team Description 02/03/2020 Travel Social History Tobacco Use Types Packs/Day Years Used Date Smoking Tobacco: Never Smokeless Tobacco: Never Alcohol Use Standard Drinks/Week Comments Yes 0 (1 standard drink = 0.6 oz pure alcoho l) rare Sex Assigned at Date Recorded Female 03/04/2020 12:33 PM DREDGE DECKHAND COVID-19 Exposure Response Date Recorded In the last month, have you been in contact with No / Unsure 02/03/2020 12:21 PM DREDGE DECKHAND someone who was confirmed or suspected to have Coronavirus / COVID-19? documented as of this encounter Plan of Treatment Upcoming Encounters Date Type Specialty Care Team Description 02/09/2022 Virtual Visit Surgery Mindi Llanes PA-C [address] [place] [address] (Wo rk) documented as of this encounter Visit Diagnoses Not on filedocumented in this encounter Care Teams Tobacco Curer Relationship Specialty Start Date End Date Goran Lloyd PCP - General Family Practice 12/29/17 05/21/[address] [address] Annette Alvarez, Nurse Practitioner Clinical Nurse 03/22/17 10/21/20 CERTIFIED CAREGIVER CHILD CARE COUNSELOR Specialist [address] [place] [address] Molded Frames Assembler Dietitian, Registered 05/25/18 [facility] [place] [address] documented as of this encounter
--- OUTSIDE RECORDS SUMMARY | 2022-01-24 17:27 | XMS_ITS | Encounter Summary ---
:1965 Author Organization [place] Address [address] [place] [address] Care Team Providers Name Role Phone Lashae Alvarez APRN, CNP Unavailable [phone] Goran Lloyd Primary Care Provider Jocelyn Davidson RD Unavailable Reason for Visit Reason Comments Diabetes Thyroid Problem Encounter Details Date Type Department Care Team Description 04/16/[address] [facility] Lashae Alvarez Uncontrolshilpa ed type 1 diabetes with renal manifestation (H) (Primary Dx); Clinic [facility] KIM Monroe CNP Type 1 diabetes mellitus with complicati ons (H); [address] [facility] [id number] [place] [address] Uncontrolled type 1 diabetes mellitus wi th stage 3 chronic kidney disease (H); [place], [place] PCOS (p olycystic ovarian syndrome); [id number] Flatulence, eructation, and gas pain; [phone] Hypothyroidism due to acquired atrophy of thyroid; (Work) Abnormal weight gain Social History Tobacco Use Types Packs/Day Years Used Date Smoking Tobacco: Never Smokeless Tobacco: Never Alcohol Use Standard Drinks/Week Comments Yes 0 (1 standard drink = 0.6 oz pure alcoho l) rare Sex Assigned at Date Recorded Female 03/04/2020 12:33 PM ASSIGNMENT OFFICER documented as of this encounter Last Filed Vital Signs Vital Sign Reading Time Taken Comments Blood Pressure 120/68 04/16/2019 1:18 PM ASSIGNMENT OFFICER Pulse 76 04/16/2019 11:28 AM ASSIGNMENT OFFICER Temperature 36.8 ??C (98.2 ??F) 04/16/2019 11:28 AM ASSIGNMENT OFFICER Respiratory Rate - - Oxygen Saturation 94% 04/16/2019 11:28 AM ASSIGNMENT OFFICER Inhaled Oxygen Concentration - - Weight 113.4 kg (250 lb) 04/16/2019 11:28 AM ASSIGNMENT OFFICER Height - - Body Mass Index 34.38 [...] done if necessary. We appreciate your understanding. 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 The patient indicates understanding of the above issues and agrees withthe plan set forth. ??Total face to face??time was 25??minutes. Follow-up: 3 months Lashae Alvarez NP Endocrinology [facility] CC: GNMENT OFFICER documented in this encounter Miscellaneous Notes Result Encounter Note - Lashae Alvarez APRN CNP - 04/16/2019 11:30 AM ASSIGNMENT OFFICER Marnie, Your thyroid labs are in normal [...] you have questions. Lashae Alvarez NP Endocrinology GNMENT OFFICER Addendum Note - Lashae Alvarez APRN CNP - 04/16/2019 11:30 AM ASSIGNMENT OFFICER Addended by: LASHAE ALVAREZ on: 04/18/2019 06:22 AM Modules accepted: Orders GNMENT OFFICER documented in this encounter Plan of Treatment Upcoming Encounters Date Type Specialty Care Team Description 02/09/2022 Virtual Visit Surgery Mindi Llanes, PRETTY [address] [place] [address] (Wo rk) documented as of this encounter Procedures Procedure Name Priority Date/Time Associated Diagnosis Comme nts BASIC METABOLIC PANEL Routine 04/16/2019 11:27 Type 1 diabetes Results for this AM ASSIGNMENT OFFICER mellitus with procedure are in complications (H) the result s section. TSH WITH FREE T4 Routine 04/16/2019 11:26 Uncontrolled type 1 Results for this REFLEX AM ASSIGNMENT OFFICER diabetes with renal procedur e are in manifestation (H) the result s section. ALBUMIN RANDOM URINE Routine 04/16/2019 11:26 Uncontrolled typ e 1 Results for this QUANTITATIVE AM ASSIGNMENT OFFICER diabetes with renal procedur e are in manifestation (H) the result s section. HEMOGLOBIN A1C Routine 04/16/2019 11:26 Uncontrolled type 1 Re sults for this AM ASSIGNMENT OFFICER diabetes with renal procedur e are in manifestation (H) the result s section. documented in this encounter Results (ABNORMAL) Renal panel (Alb, BUN, Ca, Cl, CO2, Creat, Gluc, Phos, K, Na) (08/16/2019 5:57 PM CDT) Analysis Performed At Patho logist Time Signature Sodium 136 133 - 144 08/16/2019 [facility] mmol/L 6:32 PM [facility] Potassium 4.6 3.4 - 5.3 08/16/2019 [facility] mmol/L 6:32 PM [facility] Chloride 107 94 - 109 08/16/2019 [facility] mmol/L 6:32 PM [facility] Carbon Dioxide 24 20 - 32 08/16/2019 [facility] mmol/L 6:39 PM [facility] Anion Gap 5 3 - 14 08/16/2019 [facility] mmol/L 6:39 PM [facility] Glucose 166 (H) 70 - 99 08/16/2019 [facility] mg/dL 6:39 PM [facility] Urea Nitrogen 21 7 - 30 08/16/2019 [facility] mg/dL 6:39 PM [facility] Creatinine 1.41 (H) 0.52 - 08/16/2019 [facility] 1.04 mg/dL 6:[address] [facility] GFR Estimate 42 (L) >60 08/16/2019 [facility] mL/min/{1. 6:[address] [facility] 73_m2} HOSPITAL Comment: Non GFR Calc Starting 03/14/2018, serum creatinine ba sed estimated GFR (eGFR) will be calculated using the Chronic Kidney Dise [facility] Epidemiology Collaboration (CKD-EPI) equation. GFR Estimate If 49 (L) >60 mL/min/{1.73_m2} 08/16/2019 6: 39 PM [facility] Black [facility] Comment: GFR Calc Starting 03/14/2018, serum creatinine ba sed estimated GFR (eGFR) will be calculated using the Chronic Kidney Dise [facility] Epidemiology Collaboration (CKD-EPI) equation. Calcium 9.0 8.5 - 10.1 mg/dL 08/16/2019 6:39 PM CDT [facility] Phosphorus 3.4 2.5 - 4.5 mg/dL 08/16/2019 6:39 PM CDT [facility] Albumin 3.9 3.4 - 5.0 g/dL 08/16/2019 6:39 PM CDT [facility] Specimen Anatomical Collection Method Collection Time Receive d Time (Source) Location / / Volume Laterality Blood specimen 08/16/2019 5:57 PM 020 5:58 (specimen) CDT PM CDT Lashae Alvarez APRN COMMERCIAL PRINT SALESMAN LAB - BLOOD ORDERABLES Performing Organization Address City/State/ZIP Code Phon e Number [place] [address] SHARAN [place] [address] [facility] [address] [place], [place] [address], [facility] [phone] [place] [address] [place] [address], [facility] Cortisol (08/16/2019 5:57 PM CDT) P athologist Signature Cortisol Serum 14.2 4 - 22 08/16/2019 [facility] ug/dL 10:27 PM CDT [facility] Comment: 8 AM Cortisol Reference Range = 4-22 ug/ dL 4 PM Cortisol Reference Range = 3-17 ug/ dL Specimen Anatomical Collection Method Collection Time Receive d Time (Source) Location / / Volume Laterality Blood specimen 08/16/2019 5:57 PM 020 5:58 (specimen) CDT PM CDT Lashae Alvarez APRN COMMERCIAL PRINT SALESMAN LAB - BLOOD ORDERABLES Performing Organization Address City/State/ZIP Code Phon e Number [facility] [address] (ABNORMAL) Basic metabolic panel (04/16/2019 11:27 AM ASSIGNMENT OFFICER) [facility] Method Time Signature Sodium 137 133 - 144 04/17/2019 [facility] mmol/L 7:[address] [facility] Potassium 4.4 3.4 - 5.3 04/17/2019 [facility] mmol/L 7:[address] [facility] Chloride 106 94 - 109 04/17/2019 [facility] mmol/L 7:[address] [facility] Carbon Dioxide 27 20 - 32 04/17/2019 [facility] mmol/L 7:[address] [facility] Anion Gap 4 3 - 14 04/17/2019 [facility] mmol/L 7:[address] [facility] Glucose 219 (H) 70 - 99 04/17/2019 [facility] mg/dL 7:[address] [facility] Urea Nitrogen 31 (H) 7 - 30 04/17/2019 [facility] mg/dL 7:[address] [facility] Creatinine 1.64 (H) 0.52 - 04/17/2019 [facility] 1.04 7:41 AM [facility] mg/dL [facility] GFR Estimate 35 (L) >60 04/17/2019 [facility] mL/min/{1 7:41 AM [facility] .73_m2} [facility] Comment: Non GFR Calc Starting 03/14/2018, serum creatinine ba sed estimated GFR (eGFR) will be calculated using the Chronic Kidney Dise [facility] Epidemiology Collaboration (CKD-EPI) equation. GFR Estimate If 41 (L) >60 mL/min/{1.73_m2} 04/17/2019 7:41 AM [facility] Black [facility] Comment: GFR Calc Starting 03/14/2018, serum creatinine ba sed estimated GFR (eGFR) will be calculated using the Chronic Kidney Dise [facility] Epidemiology Collaboration (CKD-EPI) equation. Calcium 10.3 (H) 8.5 - 10.1 mg/dL 04/17/2019 7:41 AM ASSIGNMENT OFFICER [facility] Specimen Anatomical Collection Method Collection Time Receive d Time (Source) Location / / Volume Laterality Blood specimen 04/16/2019 11:27 0 1:14 (specimen) AM ASSIGNMENT OFFICER PM ASSIGNMENT OFFICER Lashae Alvarez APRN, CNP LAB - BLOOD ORDERABLES Performing Organization Address City/[facility]/ZIP Code Phon e Number [facility] [address] [place] [address] TSH with free T4 reflex (04/16/2019 11:26 AM ASSIGNMENT OFFICER) athologist Signature TSH 1.18 0.40 - 4.00 04/17/2019 [facility] mU/L 8:25 AM ASSIGNMENT OFFICER [facility] Specimen Anatomical Collection Method Collection Time Receive d Time (Source) Location / / Volume Laterality Blood specimen 04/16/2019 11:26 0 (specimen) AM ASSIGNMENT OFFICER 11:27 AM ASSIGNMENT OFFICER Lashae Alvarez APRN, CNP LAB - BLOOD ORDERABLES Performing Organization Address City/[facility]/ZIP Code Phon e Number [facility] [address] [address] Albumin Random Urine Quantitative with Creat Ratio (04/16/2019 11:26 AM ASSIGNMENT OFFICER) P athologist Signature Creatinine 121 mg/dL 04/17/2019 [facility] Urine 7:[address] [facility] Albumin Urine 10 mg/L 04/17/2019 [facility] mg/L 7:[address] [facility] Albumin Urine 7.86 0 - 25 04/17/2019 [facility] mg/g Cr mg/g Cr 7:[address] [facility] Specimen Anatomical Collection Method Collection Time Receive d Time (Source) Location / / Volume Laterality Urine specimen 04/16/2019 11:26 0 (specimen) AM ASSIGNMENT OFFICER 11:27 AM ASSIGNMENT OFFICER Lashae Alvarez APRN, CNP LAB - URINE ORDERABLES Performing Organization Address City/[facility]/ZIP Code Phon e Number [facility] [address] [place] [address] (ABNORMAL) Hemoglobin A1c (04/16/2019 11:26 AM ASSIGNMENT OFFICER) P athologist Signature Hemoglobin A1C 7.4 (H) 0 - 5.6 % 04/16/2019 [facility] 11:[address] [facility] Comment: Normal <5.7% Prediabetes 5.7-6.4% ??Diab etes 6.5% or higher - adopted from ADA consensus guidelines. Specimen Anatomical Collection Method Collection Time Receive d Time (Source) Location / / Volume Laterality Blood specimen 04/16/2019 11:26 0 (specimen) AM ASSIGNMENT OFFICER 11:27 AM ASSIGNMENT OFFICER Lashae Alvarez METAL BONDING ASSEMBLER COMMERCIAL PRINT SALESMAN LAB - BLOOD ORDERABLES Performing Organization Address City/[facility]/ZIP Code Phon e Number [facility] [address] [place] [address] documented in this encounter Visit Diagnoses Diagnosis [...] gain documented in this encounter Care Teams Joint Cutter Relationship Specialty Start Date End Date Goran Lloyd PCP - General Family Practice 12/29/17 05/21/20 [facility] [address] [place] [address] Lashae Alvarez, Nurse Practitioner Clinical Nurse 03/22/17 10/21/20 METAL BONDING ASSEMBLER COMMERCIAL PRINT SALESMAN Specialist [address] [place] [address] Spray Machine Loader Dietitian, Registered 05/25/18 [facility] [address] [place] [address] SHARAN CARSON [address] documented as of this encounter
--- OUTSIDE RECORDS SUMMARY | 2022-01-24 17:27 | XMS_ITS | Encounter Summary ---
:1965 Author Organization [place] Address [address] [facility] [place] [address] Care Team Providers Name Role Phone Annette Alvarez APRN LICENSED MASSAGE PRACTITIONER Unavailable Goran Lloyd Primary Care Provider Jocelyn Davidson RD Unavailable Reason for Visit Reason Onset Date Comments Diabetes 01/25/2020 Encounter Details Date Type Department Care Team Description 01/25/2020 Telephone [facility] Annette Alvarez, Diabetes [place] PASTE MAKER LICENSED MASSAGE PRACTITIONER [address] [phone] [place] [address] (Wo rk) Social History Tobacco Use Types Packs/Day Years Used Date Smoking Tobacco: Never Smokeless Tobacco: Never Alcohol Use Standard Drinks/Week Comments Yes 0 (1 standard drink = 0.6 oz pure alcoho l) rare Sex Assigned at Date Recorded Female 03/04/2020 12:33 PM TIME RECORDER documented as of this encounter Miscellaneous Notes Telephone Encounter - Annette Alvarez APRN LICENSED MASSAGE PRACTITIONER - 01/25/2020 3:46 PM CDT Pump download [...] a day ? Annette Alvarez NP Endocrinology RECORDER Telephone Encounter - Mimi Cyr CMA - [...] Virtual Visit Surgery Mindi Llanes PA-C [address] [facility] [address] [place] [address] (Wo rk) documented as of this encounter Visit Diagnoses Not on filedocumented in this encounter Care Teams Beauty Culturist Apprentice Relationship Specialty Start Date End Date Goran Lloyd PCP - General Family Practice 12/29/17 05/21/20 [facility] [address] [place] [address] Annette Alvarez, Nurse Practitioner Clinical Nurse 03/22/17 10/21/20 PASTE MAKER LICENSED MASSAGE PRACTITIONER Specialist [address] [place] [address] Sheriff'S Sergeant Dietitian, Registered 05/25/18 [facility] [place] [address] documented as of this encounter
--- OUTSIDE RECORDS SUMMARY | 2022-01-24 17:27 | XMS_ITS | Encounter Summary ---
:1965 Author Organization [place] Address Formerly [facility] 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 Mj Tenorio MD Procedures XR Chest 1 View, [employer] [address] [place], [place] [id number] 4 Referral ID Status Reason Start Date Expiration Date Visits Requ ested Visits Authorized [id number] Closed 10/15/2020 10/15/2021 1 1 Reason for Visit Diagnostic Imaging XR (Routine) - Closed Specialty Diagnoses / Procedures Referred By Contact Refer red To Contact Diagnoses Positive QuantiFERON-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 Mj Tenorio MD Procedures XR Chest 1 View, [employer] [place] [id number] 4 Referral ID Status Reason Start Date Expiration Date Visits Requ ested Visits Authorized [id number] Closed 10/15/2020 10/15/2021 1 1 Encounter Details Date Type Department Care Team Description 10/15/2020 Hospital Encounter [facility] Mj Tenorio Positive [facility] MD Olegario QuantiFERON-TB Gold [address] test [facility] 213 [address] [place], [place] [phone] Social History Tobacco Use Types Packs/Day Years Used Date Smoking Tobacco: Never Smokeless Tobacco: Never Alcohol Use Standard Drinks/Week Comments Yes 0 (1 standard drink = 0.6 oz pure alcoho l) rare Sex Assigned at Date Recorded Female 03/04/2020 12:33 PM COMPUTATIONAL LINGUIST COVID-19 Exposure Response Date Recorded In the [...] Insulin Time: 4 hours Using T:Connect: Yes [employer] Sharing Code: [id number] insulin syringe-needle Use 1 syringe as 20 [...] PA-C [address] [place] [id number] (Wo rk) documented as of this encounter [...] Depression Total Score: 0 02/26/2020 1:30 PM COMPUTATIONAL LINGUIST documented as of this encounter Care Teams Director Dietetics Department Relationship Specialty Start Date End Date Nikita Gamble PCP - General Family Medicine 05/26/20 [facility] [address] [place] [address] Annette Alvarez, Nurse Practitioner Clinical Nurse 03/22/17 10/21/20 AUTOMOBILE BODY REPAIR CHIEF MESH WORKER Specialist [address] [place] [address] Van Driver Helper Dietitian, Registered 05/25/18 [facility] [address] [place] [address] Tamar Murphy APRN Assigned PCP 02/08/20 1 MESH WORKER [address] [place], [place] [phone] documented as of this encounter
--- OUTSIDE RECORDS SUMMARY | 2022-01-24 17:27 | XMS_ITS | Encounter Summary ---
:1965 Author Organization [place] Address [address] [facility] [place] [address] Care Team Providers Name Role Phone Annette Alvarez KIM ORIENTATION AND MOBILITY INSTRUCTOR Unavailable [phone] Unavailable Tamar Murphy APRN ORIENTATION AND MOBILITY INSTRUCTOR Unavailable Nikita Gamble Primary Care Provider Encounter Details Date Type Department Care Team Description 09/04/2020 Virtual Visit [facility] Kalpesh Salmon, Back muscle spasm Clinic [place] PRETTY (Primary Dx) [address] [place] [address] [phone] Social History Tobacco Use Types Packs/Day Years Used Date Smoking Tobacco: Never Smokeless Tobacco: Never Alcohol Use Standard Drinks/Week Comments Yes 0 (1 standard drink = 0.6 oz pure alcoho l) rare Sex Assigned at Date Recorded Female 03/04/2020 12:33 PM REFINING MACHINE OPERATOR documented as of this encounter Progress [...] No follow-ups on file. Kalpesh Salmon PA-C [facility] PRATIBHA Dye is a 55 [...] Mindi Llanes PA-C [address] [facility] [address] [place] [phone] (Wo rk) documented as of this encounter Visit Diagnoses Diagnosis Back muscle spasm - Primary Other symptoms referable to back documented in this encounter Additional Health Concerns Assessment Noted Time PHQ-9 Depression Total Score: 0 02/26/2020 1:30 PM REFINING MACHINE OPERATOR documented as of this encounter Care Teams Adjunct Faculty Relationship Specialty Start Date End Date Nikita Gamble PCP - General Family Medicine 05/26/20 [facility] [address] [place] [address] Annette Alvarez, Nurse Practitioner Clinical Nurse 03/22/17 10/21/20 UROGYNAECOLOGIST ORIENTATION AND MOBILITY INSTRUCTOR Specialist [address] [place] [address] Button Buttonhole Marker Dietitian, Registered 05/25/18 [facility] [place] [address] Tamar Murphy APRN Assigned PCP 02/08/20 1 ORIENTATION AND MOBILITY INSTRUCTOR [address] [place] [address] documented as of this encounter
--- OUTSIDE RECORDS SUMMARY | 2022-01-24 17:27 | XMS_ITS | Encounter Summary ---
:1965 Author Organization [place] Address [address] [facility] [address] Care Team Providers Name Role Phone Annette Alvarez PAN OPERATOR CALCINE FURNACE TENDER Unavailable [phone] Goran Lloyd Primary Care Provider Jocelyn Davidson RD Unavailable Tamar Murphy PAN OPERATOR CALCINE FURNACE TENDER Unavailable Encounter Details Date Type Department Care Team Description 02/27/2020 Telephone [facility] Kalpesh Lau PA-C [address] [address] [place] [address] [phone] Social History Tobacco Use Types Packs/Day Years Used Date Smoking Tobacco: Never Smokeless Tobacco: Never Alcohol Use Standard Drinks/Week Comments Yes 0 (1 standard drink = 0.6 oz pure alcoho l) rare Sex Assigned at Date Recorded Female 03/04/2020 12:33 PM FIXER SUPERVISOR COVID-19 Exposure Response Date Recorded In the last month, have you been in contact with No / Unsure 02/03/2020 12:21 PM FIXER SUPERVISOR someone who was confirmed or suspected to have Coronavirus / COVID-19? documented as of this encounter Miscellaneous Notes Telephone Encounter - Kalpesh Lau PA-C - 02/27/2020 5:09 PM CST I listened to patient's lungs which sounded quite raspy and congested. Sent in antibiotic to cover for pneumonia and codeine cough syrup. Kalpesh Lau PA-C on 02/27/2020 at 5:09 PM R SUPERVISOR Telephone Encounter - Atiya Cowart - 02/27/2020 3:51 PM CST Patient requesting cough syrup Atiya Cowart/Cnc Applications Engineer R SUPERVISOR documented in this encounter Plan of Treatment Upcoming Encounters Date Type Specialty Care Team Description 02/09/2022 Virtual Visit Surgery Mindi Llanes PA-C [address] [facility] [address] [place] [phone] (Wo rk) documented as of this encounter Visit Diagnoses Diagnosis Cough - Primary documented in this encounter Additional Health Concerns Infection Onset Date Last Indicated Resolved Time Rule Out COVID-19 02/26/2020 02/26/2020 02/27/2020 4:3 2 PM FIXER SUPERVISOR Assessment Noted Time PHQ-9 Depression Total Score: 0 02/26/2020 1:30 PM FIXER SUPERVISOR documented as of this encounter Care Teams Salvage Grinder Relationship Specialty Start Date End Date Goran Lloyd PCP - General Family Practice 12/29/17 05/21/20 [facility] [address] [place] [address] Annette Alvarez, Nurse Practitioner Clinical Nurse 03/22/17 10/21/20 PAN OPERATOR CALCINE FURNACE TENDER Specialist [address] [place], [place] [phone] Jocelyn Davidson RD Solution Specialist Dietitian, Registered 05/25/18 [facility] [place] [address] Tamar Murphy APRN Assigned PCP 02/08/20 1 CALCINE FURNACE TENDER [address] [place] [address] documented as of this encounter
--- OUTSIDE RECORDS SUMMARY | 2022-01-24 17:27 | XMS_ITS | Encounter Summary ---
:1965 Author Organization [place] Address [address] [facility] [place] [address] Care Team Providers Name Role Phone Jocelyn Davidson Bran YANEZ Unavailable Nikita Gamble Primary Care Provider Naveen Casiano MD Unavailable Encounter Details Date Type Department Care Team Description 12/02/2020 Lab [facility] Type 1 diabetes mellitus (H) [facility] [address] [place], [place] [phone] Social History Tobacco Use Types Packs/Day Years Used Date Smoking Tobacco: Never Smokeless Tobacco: Never Alcohol Use Standard Drinks/Week Comments Yes 0 (1 standard drink = 0.6 oz pure alcoho l) rare Sex Assigned at Date Recorded Female 03/04/2020 12:33 PM SOFTWARE QUALITY AUTOMATION ENGINEER COVID-19 Exposure Response Date Recorded In the last month, have you been in contact with No / Unsure 12/02/2020 3:27 PM CDT someone who was confirmed or suspected to have Coronavirus / COVID-19? documented as of this encounter Plan of Treatment Upcoming Encounters Date Type Specialty Care Team Description 02/09/2022 Virtual Visit Surgery Mindi Llanes PA-C [address] [place] [id number] (Wo rk) documented as of this encounter [...] Code Phon [place] [address] [facility]-[phone] [facility] [address] [facility] Lab (no room number, 1st floor of clinic) [facility] [place], [place] [phone] [facility] [phone] Lab [address] [facility] (no room number, 1st floor of clinic) documented in this encounter Visit Diagnoses Diagnosis Type 1 diabetes mellitus (H) Type I (juvenile type) diabetes mellitus without mention of complication, not stated as uncontrolled documented in this encounter Additional Health Concerns Assessment Noted Time PHQ-9 Depression Total Score: 0 02/26/2020 1:30 PM SOFTWARE QUALITY AUTOMATION ENGINEER documented as of this encounter Care Teams Interior Design Assistant Relationship Specialty Start Date End Date Nikita Gamble PCP - General Family Medicine 05/26/20 [facility] [address] [place] [address] Brush Clearer Surveying Dietitian, Registered 05/25/18 [facility] [place] [address] Naveen Casiano MD Assigned PCP 11/16/20 [address] [place] [address] documented as of this encounter
--- OUTSIDE RECORDS SUMMARY | 2022-01-24 17:27 | XMS_ITS | Encounter Summary ---
:1965 Author Organization [place] Address [address] [facility] [place] [address] Care Team Providers Name Role Phone Annette Alvarez Mabel ALVAREZ DESIGN CENTER CONSULTANT Unavailable [phone] Unavailable Tamar Murphy APRN DESIGN CENTER CONSULTANT Unavailable Nikita Gamble Primary Care Provider Reason for Visit Reason Onset Date Comments Diabetes Education 05/22/2020 scheduling outreach Encounter Details Date Type Department Care Team Description 05/22/2020 Telephone [facility] Annette Nuñez Diabetes E ducation [facility] [place] KIM Monroe DESIGN CENTER CONSULTANT (scheduling outreach) [address] [facility] [id number] [place] [id number] Social History Tobacco Use Types Packs/Day Years Used Date Smoking Tobacco: Never Smokeless Tobacco: Never Alcohol Use Standard Drinks/Week Comments Yes 0 (1 standard drink = 0.6 oz pure alcoho l) rare Sex Assigned at Date Recorded Female 03/04/2020 12:33 PM BACK PANEL PADDER documented as of this encounter Miscellaneous Notes Telephone Encounter - Trinidad Thomas - 05/22/2020 3:21 PM CST Diabetes Education Scheduling Outreach #1: Call to patient to schedule. Left message with phone number to call to schedule. Plan for 2nd outreach attempt within 1 week. Trinidad Adkins [facility] Scheduling PANEL PADDER documented in this encounter Plan of Treatment Upcoming Encounters Date Type Specialty Care Team Description 02/09/2022 Virtual Visit Surgery Mindi Llanes PA-C [address] [facility] [address] [place] [id number] (Wo rk) documented as of this encounter Visit Diagnoses Not on filedocumented in this encounter Additional Health Concerns Assessment Noted Time PHQ-9 Depression Total Score: 0 02/26/2020 1:30 PM BACK PANEL PADDER documented as of this encounter Care Teams Fourdrinier Tender Relationship Specialty Start Date End Date Nikita Gamble PCP - General Family Medicine 05/26/20 [facility] [address] [place] [address] Annette Alvarez, Nurse Practitioner Clinical Nurse 03/22/17 10/21/20 [employer]YCLING TECHNICIAN DESIGN CENTER CONSULTANT Specialist [address] [place], [place] [phone] Jocelyn Davidson RD Public Area Supervisor Dietitian, Registered 05/25/18 [facility] [address] Tamar Murphy APRN Assigned PCP 02/08/20 1 DESIGN CENTER CONSULTANT [address] [place] [address] documented as of this encounter
--- OUTSIDE RECORDS SUMMARY | 2022-01-24 17:27 | XMS_ITS | Encounter Summary ---
:1965 Author Organization [place] Address [address] [facility] [address] Care Team Providers Name Role Phone Annette Alvarez APRN FLIGHT/TRANSPORT NURSE Unavailable [phone] Unavailable Tamar Murphy SOFTWARE ANALYST FLIGHT/TRANSPORT NURSE Unavailable Nikita Gamble Primary Care Provider Naveen Casiano MD Unavailable Harlan Lin MD Unavailable Unavailable Mikki Blevins MD Unavailable Mikki Blevins MD Unavailable Mindi Llanes PA-C Unavailable [phone] Reason for Visit Reason Comments Medication Refill Encounter Details Date Type Department Care Team Description 06/05/2020 Refill [facility] Annette Alvarez, Medication Refill [place] SOFTWARE ANALYST FLIGHT/TRANSPORT NURSE [address] [place] [phone] [place], [place] [phone] [place] [address] (Wo rk) Social History Tobacco Use Types Packs/Day Years Used Date Smoking Tobacco: Never Smokeless Tobacco: Never Alcohol Use Standard Drinks/Week Comments Yes 0 (1 standard drink = 0.6 oz pure alcoho l) rare Sex Assigned at Date Recorded Female 03/04/2020 12:33 PM COMMERCIAL FINANCE MANAGER documented as of this encounter Miscellaneous Notes Telephone Encounter - Jasmyn Lee RN - 06/05/2020 11:52 AM CST Prescription approved per [facility] Refill Protocol. 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 documented in this encounter Additional Health Concerns Assessment Noted Time PHQ-9 Depression Total Score: 0 02/26/2020 1:30 PM COMMERCIAL FINANCE MANAGER documented as of this encounter Care Teams Carpenter And Joiner Relationship Specialty Start Date End Date Nikita Gamble PCP - General Family Medicine 05/26/20 [facility] [address] [place] [address] Annette Alvarez, Nurse Practitioner Clinical Nurse 03/22/17 10/21/20 SOFTWARE ANALYST FLIGHT/TRANSPORT NURSE Specialist [address] [place], [place] [phone] Jocelyn Davidson RD Artists' Booking Representative Dietitian, Registered 05/25/18 [facility] [place] [address] Tamar Murphy, Assigned PCP 02/08/20 11/15/20 SOFTWARE ANALYST FLIGHT/TRANSPORT NURSE [address] [place], [place] [phone] Naveen Casiano MD Assigned PCP 11/16/20 [address] [place], [place] [phone] Harlan Lin Assigned Endocrinology 12/07/20 08/01/21 MD [facility] Provider NO INFO AVAILABLE Mikki Blevins MD MD Endocrinology, 05/07/21 [address] [facility] Diabetes, and [place], [place] Metabolism [address] Mikki Blevins MD Assigned Endocrinology 08/02/21 [place] [address] Mindi Llanes Assigned Surgical 09/26/21 PRE[facility] Provider [address] [place] [address] documented as of this encounter
--- OUTSIDE RECORDS SUMMARY | 2022-01-24 17:27 | XMS_ITS | Encounter Summary ---
:1965 Author Organization [place] Address [address] [facility] [place] [address] Care Team Providers Name Role Phone Jocelyn Davidson RENATA Unavailable Tamar Murphy APRN DRAWING IN MACHINE TENDER Unavailable Nikita Gamble Primary Care Provider Encounter Details Date Type Department Care Team Description 11/06/2020 Travel Social History Tobacco Use Types Packs/Day Years Used Date Smoking Tobacco: Never Smokeless Tobacco: Never Alcohol Use Standard Drinks/Week Comments Yes 0 (1 standard drink = 0.6 oz pure alcoho l) rare Sex Assigned at Date Recorded Female 03/04/2020 12:33 PM PAIRING MACHINE OPERATOR COVID-19 Exposure Response Date Recorded In the last month, have you been in contact with No / Unsure 11/06/2020 3:29 PM CDT someone who was confirmed or suspected to have Coronavirus / COVID-19? documented as of this encounter Plan of Treatment Upcoming Encounters Date Type Specialty Care Team Description 02/09/2022 Virtual Visit Surgery Mindi Llanes PA-C [address] [place] [address] (Wo rk) documented as of this encounter Visit Diagnoses Not on filedocumented in this encounter Additional Health Concerns Assessment Noted Time PHQ-9 Depression Total Score: 0 02/26/2020 1:30 PM PAIRING MACHINE OPERATOR documented as of this encounter Care Teams Otolaryngologist Relationship Specialty Start Date End Date Nikita Gamble PCP - General Family Medicine 05/26/20 [facility] [address] [place] [address] Diploma Maker Dietitian, Registered 05/25/18 [facility] [address] [place] [address] [place] [address] Tamar Murphy APRN DRAWING IN MACHINE TENDER Assigned PCP 02/08/20 11/15/20 [address] [place] [address] documented as of this encounter
--- OUTSIDE RECORDS SUMMARY | 2022-01-24 17:27 | XMS_ITS | Encounter Summary ---
:1965 Author Organization [place] Address [address] [facility] [place] [address] Care Team Providers Name Role Phone Annette Alvarezmamadou ALVAREZ SALES AGENT MARINE INSURANCE Unavailable Goran Lloyd Primary Care Provider Jocelyn Davidson RD Unavailable Encounter Details Date Type Department Care Team Description 08/16/2019 Hospital Encounter [facility] Goran Lloyd [facility] [address] [place] [address] Uncontrolled type 1 diabetes with renal manifestation (H); [facility] Annette KIM Monroe SALES AGENT [employer]URANCE [address] [place], [place] [phone] Abnormal weight gain [address] [place] [address] Social History Tobacco Use Types Packs/Day Years Used Date Smoking Tobacco: Never Smokeless Tobacco: Never Alcohol Use Standard Drinks/Week Comments Yes 0 (1 standard drink = 0.6 oz pure alcoho l) rare Sex Assigned at Date Recorded Female 03/04/2020 12:33 PM SEWER LINE PHOTO INSPECTOR COVID-19 Exposure Response Date Recorded In [...] hours Using T:Connect: Yes Dexcom Sharing Code: [id number] insulin syringe-needle Use 1 syringe as 20 [...] PA-C [address] [place] [address] (Wo rk) documented as of this encounter [...] 08/16/2019 [facility] ug/dL 10:27 PM CDT [facility] Comment: 8 AM Cortisol Reference Range = 4-22 ug/ dL 4 PM Cortisol Reference Range = 3-17 ug/ dL Specimen Anatomical Collection Method Collection Time Receive d Time (Source) Location / / Volume Laterality Blood specimen 08/16/2019 5:57 PM 020 5:58 (specimen) CDT PM CDT Annette Alvarez IRRIGATION SYSTEM OPERATOR SALES AGENT [employer] LAB - BLOOD ORDERABLES Performing Organization Address City/State/ZIP Code Phon e Number [address] [address] [facility] (ABNORMAL) Renal panel (Alb, BUN, Ca, Cl, CO2, Creat, Gluc, Phos, K, Na) (08/16/2019 5:57 PM CDT) Analysis Performed At Patho logist Time Signature Sodium 136 133 - 144 08/16/2019 [facility] mmol/L 6:32 PM [facility] Potassium 4.6 3.4 - 5.3 08/16/2019 [facility] mmol/L 6:32 PM [facility] Chloride 107 94 - 109 08/16/2019 [facility] mmol/L 6:32 PM [facility] Carbon Dioxide 24 20 - 32 08/16/2019 [facility] mmol/L 6:39 PM [facility] Anion Gap 5 3 - 14 08/16/2019 [facility] mmol/L 6:39 PM [facility] Glucose 166 (H) 70 - 99 08/16/2019 [facility] mg/dL 6:39 PM [facility] Urea Nitrogen 21 7 - 30 08/16/2019 [facility] mg/dL 6:39 PM [facility] Creatinine 1.41 (H) 0.52 - 08/16/2019 [facility] 1.04 mg/dL 6:39 PM [facility] GFR Estimate 42 (L) >60 08/16/2019 [facility] mL/min/{1. 6:39 PM [facility] 73_m2} [facility] Comment: Non GFR Calc Starting 03/14/2018, serum creatinine ba sed estimated GFR (eGFR) will be calculated using the Chronic Kidney Dise [facility] Epidemiology Collaboration (CKD-EPI) equation. GFR Estimate If 49 (L) >60 mL/min/{1.73_m2} 08/16/2019 6: 39 PM [facility] Comment: GFR Calc Starting 03/14/2018, serum creatinine ba sed estimated GFR (eGFR) will be calculated using the Chronic Kidney Dise [facility] Epidemiology Collaboration (CKD-EPI) equation. Calcium 9.0 8.5 - 10.1 mg/dL 08/16/2019 6:39 PM CDT [facility] Phosphorus 3.4 2.5 - 4.5 mg/dL 08/16/2019 6:39 PM CDT [facility] Albumin 3.9 3.4 - 5.0 g/dL 08/16/2019 6:39 PM CDT [facility] Specimen Anatomical Collection Method Collection Time Receive d Time (Source) Location / / Volume Laterality Blood specimen 08/16/2019 5:57 PM 020 5:58 (specimen) CDT PM CDT Annette Alvarez IRRIGATION SYSTEM OPERATOR SALES AGENT [employer] LAB - BLOOD ORDERABLES Performing Organization Address City/State/ZIP Code Phon e Number [facility] [address] [place] [address] [facility] [address] [place], [place] [address], [facility] [phone] [facility] [address] [place] [address], [facility] documented in this encounter Visit Diagnoses Diagnosis Uncontrolled type 1 diabetes with renal manifestation Type I (juvenile type) diabetes mellitus with renal manifestations, uncontrolled Abnormal weight gain documented in this encounter Care Teams Wardrobe Stylist Relationship Specialty Start Date End Date Goran Lloyd PCP - General Family Practice 12/29/17 05/21/20 [facility] [address] [place] [address] Annette Alvarez, Nurse Practitioner Clinical Nurse 03/22/17 10/21/20 IRRIGATION SYSTEM OPERATOR SALES AGENT MARINE INSURANCE Specialist [address] [place] [address] Supervisor Paint Dietitian, Registered 05/25/18 [facility] [address] [place] [address] [place] [address] documented as of this encounter
--- OUTSIDE RECORDS SUMMARY | 2022-01-24 17:27 | XMS_ITS | Encounter Summary ---
:1965 Author Organization [place] Address [address] [facility] [place] [address] Care Team Providers Name Role Phone Annette Alvarez KIM OUTBOUND TELEMARKETING REPRESENTATIVE Unavailable Jocelyn Davidson RD Unavailable Tamar Murphy APRN OUTBOUND TELEMARKETING REPRESENTATIVE Unavailable Nikita Gamble Primary Care Provider Reason for Visit Reason Onset Date Comments Panel Management 06/26/2020 Encounter Details Date Type Department Care Team Description 06/26/2020 [facility] Tamar Murphy APRN Panel Management [facility] [address] [address] [phone] (Wo rk) Social History Tobacco Use Types Packs/Day Years Used Date Smoking Tobacco: Never Smokeless Tobacco: Never Alcohol Use Standard Drinks/Week Comments Yes 0 (1 standard drink = 0.6 oz pure alcoho l) rare Sex Assigned at Date Recorded Female 03/04/2020 12:33 PM SHUCKER documented as of this encounter Miscellaneous Notes Telephone Encounter - Krissy Staton MA - 06/26/2020 1:43 PM CDT Patient [...] Virtual Visit Surgery Mindi Llanes PA-C [address] [facility] [address] [place] [address] (Wo rk) documented as of this encounter Visit Diagnoses Not on filedocumented in this encounter Additional Health Concerns Assessment Noted Time PHQ-9 Depression Total Score: 0 02/26/2020 1:30 PM SHUCKER documented as of this encounter Care Teams Amortization Clerk Relationship Specialty Start Date End Date Nikita Gamble PCP - General Family Medicine 05/26/20 [facility] [address] [place] [address] Annette Alvarez, Nurse Practitioner Clinical Nurse 03/22/17 10/21/20 METAL DRESSER OUTBOUND TELEMARKETING REPRESENTATIVE Specialist [address] [place], [place] [phone] Jocelyn Davidson RD Flight Test Supervisor Dietitian, Registered 05/25/18 [facility] [place] [address] Tamar Murphy APRN Assigned PCP 02/08/20 1 OUTBOUND TELEMARKETING REPRESENTATIVE [address] [place] [address] documented as of this encounter
--- OUTSIDE RECORDS SUMMARY | 2022-01-24 17:27 | XMS_ITS | Encounter Summary ---
:1965 Author Organization [place] Address [address] [facility] [place] [address] Care Team Providers Name Role Phone Annette Alvarez KIM STORE SALES LEADER Unavailable Goran Lloyd Primary Care Provider Jocelyn Davidson RD Unavailable Tamar Murphy APRN STORE SALES LEADER Unavailable Reason for Visit Diagnostic Imaging XR (Routine) - Closed Specialty Diagnoses / Procedures Referred By Contact Refer red To Contact Diagnoses Cough Tamar Murphy APRN CNP Procedures XR Chest 2 Views [address] [place], [place] [address] Referral ID Status Reason Start Date Expiration Date Visits Requ ested Visits Authorized [id number] Closed 02/26/2020 02/25/2021 1 1 Encounter Details Date Type Department Care Team Description 02/26/2020 Ancillary Procedure [facility] Tamar Murphy [address] APRN STORE SALES LEADER [address] [facility] [id number] [place] [id number] [phone] Social History Tobacco Use Types Packs/Day Years Used Date Smoking Tobacco: Never Smokeless Tobacco: Never Alcohol Use Standard Drinks/Week Comments Yes 0 (1 standard drink = 0.6 oz pure alcoho l) rare Sex Assigned at Date Recorded Female 03/04/2020 12:33 PM BEAUTY ADVISOR COVID-19 Exposure Response Date Recorded In the last month, have you been in contact with No / Unsure 02/03/2020 12:21 PM BEAUTY ADVISOR someone who was confirmed or suspected to have Coronavirus / COVID-19? documented as of this encounter Plan of Treatment Upcoming Encounters Date Type Specialty Care Team Description 02/09/2022 Virtual Visit Surgery Mindi Llanes, PRETTY [address] [place] [address] (Wo rk) documented as of this encounter Procedures Procedure Name Priority Date/Time Associated Diagnosis Comme nts XR CHEST 2 VIEWS Routine 02/26/2020 2:12 PM Cough Resul ts for this BEAUTY ADVISOR procedure are i n the results section. documented in this encounter Results XR Chest 2 Views (02/26/2020 2:12 PM BEAUTY ADVISOR) Anatomical Region Laterality Modality Chest Computed Radiography Specimen (Source) Anatomical Location Collection Method / Collectio n Time Received Time / Laterality Volume Impressions 02/26/2020 2:25 PM BEAUTY ADVISOR IMPRESSION: PA and lateral views of the chest. Lungs are clear. Heart is normal in size. No effusions are evid ent. No pneumothorax. Degenerative spine changes are noted. Ol d healed lateral right upper rib fractures and mid left rib fractures are again noted. TONIO CRANE MD Narrative 02/26/2020 2:25 PM BEAUTY ADVISOR CHEST TWO VIEWS ??02/26/2020 2:12 PM HISTORY: [...] noted. TONIO CRANE MD Tamar Murphy APRN STORE SALES LEADER IMG DIAGNOSTIC IMAGING ORDER DEJUAN documented in this encounter Visit Diagnoses Not on filedocumented in this encounter Additional Health Concerns Infection Onset Date Last Indicated Resolved Time Rule Out COVID-19 02/26/2020 02/26/2020 02/27/2020 4:3 2 PM BEAUTY ADVISOR Assessment Noted Time PHQ-9 Depression Total Score: 0 02/26/2020 1:30 PM BEAUTY ADVISOR documented as of this encounter Care Teams Supervisor Underwriting Clerks Relationship Specialty Start Date End Date Goran Lloyd PCP - General Family Practice 12/29/17 05/21/[address] [address] Annette Alvarez, Nurse Practitioner Clinical Nurse 03/22/17 10/21/20 DATA SECURITY ANALYST STORE SALES LEADER Specialist [address] [place], [place] [phone] Jocelyn Davidson RD Cardiac Exercise Physiologist Dietitian, Registered 05/25/18 [facility] [address] [place] [address] [place] [address] Tamar Murphy APRN Assigned PCP 02/08/20 1 STORE SALES LEADER [address] [place], [place] [phone] documented as of this encounter
--- OUTSIDE RECORDS SUMMARY | 2022-01-24 17:27 | XMS_ITS | Encounter Summary ---
:1965 Author Organization [place] Address [address] [place] [address]. [place] [address] Care Team Providers Name Role Phone Annette Alvarez APRN DEVOPS DEVELOPER Unavailable [phone] Goran Lloyd Primary Care Provider Jocelyn Davidson RD Unavailable Reason for Referral Diagnostic Imaging XR (Routine) - Closed Specialty Diagnoses / Procedures Referred By Contact Refer red To Contact Radiology. Diagnoses Positive QuantiFERON-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 Mj Tenorio MD Rh Xray Procedures XR Chest 1 View, [employer] [address] [employer] [place] [address] [address] [place] [address] Phone: Fax: Referral ID Status Reason Start Date Expiration Date Visits Requ ested Visits Authorized [id number] Closed 08/24/2019 08/23/2020 1 1 Reason for Visit Diagnostic Imaging XR (Routine) - Closed Specialty Diagnoses / Procedures Referred By Contact Refer red To Contact Radiology. Diagnoses Positive QuantiFERON-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 Mj Tenorio MD Rh Xray Procedures XR Chest 1 View, [employer] [address] [place] [address] [address] [place] [address] Phone: Fax: Referral ID Status Reason Start Date Expiration Date Visits Requ ested Visits Authorized [id number] Closed 08/24/2019 08/23/2020 1 1 Encounter Details Date Type Department Care Team Description 08/24/2019 Hospital Encounter [facility] Mj Tenorio Positive [facility] MD Olegario QuantiFERON-TB Gold [address] [facility] [address] test [facility] [phone] [place], [place] [phone] Social History Tobacco Use Types Packs/Day Years Used Date Smoking Tobacco: Never Smokeless Tobacco: Never Alcohol Use Standard Drinks/Week Comments Yes 0 (1 standard drink = 0.6 oz pure alcoho l) rare Sex Assigned at Date Recorded 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 COVID-19 Exposure Response Date Recorded In the [...] hours Using T:Connect: Yes Dexcom Sharing Code: [id number] insulin syringe-needle Use 1 syringe as 20 [...] PA-C [address] [place] [address] (Wo rk) documented as of this encounter [...] osis documented in this encounter Care Teams Sugar Mill Worker Relationship Specialty Start Date End Date Goran Lloyd PCP - General Family Practice 12/29/17 05/21/20 [facility] [address] [place] [address] Annette Alvarez, Nurse Practitioner Clinical Nurse 03/22/17 10/21/[address] ST[address] CLEANER DEVOPS DEVELOPER Specialist [address] [place] [address] Drafting Supervisor Dietitian, Registered 05/25/18 [facility] [address] [place] [address] [place] [id number] documented as of this encounter
--- OUTSIDE RECORDS SUMMARY | 2022-01-24 17:27 | XMS_ITS | Encounter Summary ---
:1965 Author Organization [place] Address [address] [facility] [place] [address] Care Team Providers Name Role Phone Annette Alvarez KIM DIRECTOR SAFETY Unavailable Goran Lloyd Primary Care Provider Jocelyn Davidson RD Unavailable Tamar Murphy APRN DIRECTOR SAFETY Unavailable Encounter Details Date Type Department Care Team Description 03/25/2020 [facility] Tamar Murphy APRN [address] [phone] [place] [address] (Wo rk) Social History Tobacco Use Types Packs/Day Years Used Date Smoking Tobacco: Never Smokeless Tobacco: Never Alcohol Use Standard Drinks/Week Comments Yes 0 (1 standard drink = 0.6 oz pure alcoho l) rare Sex Assigned at Date Recorded Female 03/04/2020 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 documented as of this encounter Plan of Treatment Upcoming Encounters Date Type Specialty Care Team Description 02/09/2022 Virtual Visit Surgery Mindi Llanes PA-C [address] [facility] [address] [place] [address] (Wo rk) documented as of this encounter Visit Diagnoses Not on filedocumented in this encounter Additional Health Concerns Assessment Noted Time PHQ-9 Depression Total Score: 0 02/26/2020 1:30 PM AQUARIUM TANK ATTENDANT documented as of this encounter Care Teams Computer Repairer Relationship Specialty Start Date End Date Goran Lloyd PCP - General Family Practice 12/29/17 05/21/[address] [address] Annette Alvarez, Nurse Practitioner Clinical Nurse 03/22/17 10/21/20 LIBRARY HISTORIAN DIRECTOR SAFETY Specialist [address] [place], [place] [phone] Jocelyn Davidson RD Stripper Color Dietitian, Registered 05/25/18 [facility] [place] [address] [place] [address] [place] [address] Tamar Murphy APRN Assigned PCP 02/08/20 1 DIRECTOR SAFETY [address] [place], [place] [phone] documented as of this encounter
--- OUTSIDE RECORDS SUMMARY | 2022-01-24 17:27 | XMS_ITS | Encounter Summary ---
:1965 Author Organization [place] Address [facility] [place] [address] Care Team Providers Name Role Phone Jocelyn Davidson RENATA Unavailable Tamar Murphy APRN SERVICE COUNTER CASHIER Unavailable Nikita Gamble Primary Care Provider Reason for Visit Reason Onset Date Comments Orders 10/22/2020 labs Encounter Details Date Type Department Care Team Description 10/22/2020 Telephone [facility] Naveed Lin Orders (labs) Kenny Banegas MD [address] [facility] NO INFO AVAILABLE [place] [phone] Social History Tobacco Use Types Packs/Day Years Used Date Smoking Tobacco: Never Smokeless Tobacco: Never Alcohol Use Standard Drinks/Week Comments Yes 0 (1 standard drink = 0.6 oz pure alcoho l) rare Sex Assigned at Date Recorded Female 03/04/2020 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 Pt previously seen by Dr. Annette Alvarez. Please send Starline message when pt can schedule labs. Action Taken: Message routed to: Other: Endo Travel Screening: Not Applicable documented in this encounter Plan of Treatment Upcoming Encounters Date Type Specialty Care Team Description 02/09/2022 Virtual Visit Surgery Mindi Llanes PA-C [address] [facility] [address] [place] [address] (Wo rk) documented as of this encounter [...] City/State/ZIP Code Phon [place] [address] [phone] [facility] [address] [facility] Lab (no room number, 1st floor of clinic) [facility] [place], [place] [phone] [facility] [phone] Lab [id number] [place] [address] Lab (no room number, 1st floor of clinic) documented in this encounter Visit Diagnoses Diagnosis Type 1 diabetes mellitus (H) - Primary Type I (juvenile type) diabetes mellitus without mention of complication, not stated as uncontrolled documented in this encounter Additional Health Concerns Assessment Noted Time PHQ-9 Depression Total Score: 0 02/26/2020 1:30 PM DINKEY DISPATCHER documented as of this encounter Care Teams Automatic Profile Shaper Operator Relationship Specialty Start Date End Date Nikita Gamble PCP - General Family Medicine 05/26/20 [facility] [address] [place], [place] [phone] Jocelyn Davidson RD Personnel Administrator Dietitian, Registered 05/25/18 [facility] [place] [address] [address] Tamar Murphy APRN SERVICE COUNTER CASHIER Assigned PCP 02/08/20 11/15/20 [address] [place] [address] documented as of this encounter
--- OUTSIDE RECORDS SUMMARY | 2022-01-24 17:27 | XMS_ITS | Encounter Summary ---
:1965 Author Organization [place] Address [address] [facility] 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 documented as of this encounter Plan of Treatment Upcoming Encounters Date Type Specialty Care Team Description 02/09/2022 Virtual Visit Surgery Mindi Llanes PA-C [address] [place] [address] (Wo rk) documented as of this encounter Visit Diagnoses Not on filedocumented in this encounter Additional Health Concerns Assessment Noted Time PHQ-9 Depression Total Score: 0 02/26/2020 1:30 PM CAR FERRY MASTER documented as of this encounter Care Teams Golf Caddy Relationship Specialty Start Date End Date Nikita Gamble PCP - General Family Medicine 05/26/20 [facility] [address] [place] [address] Annette Alvarez, Nurse Practitioner Clinical Nurse 03/22/17 10/21/20 WALLPAPERER HELPER STORE FACILITY TECHNICIAN Specialist [address] [place], [place] [phone] Jocelyn Davidson RD Director Internal Control Dietitian, Registered 05/25/18 [facility] [place] [address] Tamar Murphy APRN Assigned PCP 02/08/20 1 STORE FACILITY TECHNICIAN [address] [place] [address] documented as of this encounter
--- OUTSIDE RECORDS SUMMARY | 2022-01-24 17:27 | XMS_ITS | Encounter Summary ---
:1965 Author Organization [place] Address [address] [place] [address]. 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 COVID-19 Exposure Response Date Recorded [...] PA-C [address] [place] [address] (Wo rk) documented as of this encounter Visit Diagnoses Not on filedocumented in this encounter Care Teams Channel Lip Stiffener Insoles Relationship Specialty Start Date End Date Goran Lloyd PCP - General Family Practice 12/29/17 05/21/[address] [place] [address] Annette Alvarez, Nurse Practitioner Clinical Nurse 03/22/17 10/21/20 DESKTOP SUPPORT CONSULTANT JOB FOREMAN Specialist [address] [place] [address] Quality Review Specialist Dietitian, Registered 05/25/18 [facility] [place] [address] documented as of this encounter
--- OUTSIDE RECORDS SUMMARY | 2022-01-24 17:27 | XMS_ITS | Encounter Summary ---
:1965 Author Organization [facility] Address [address] [place] [address]. [place] [address] Care Team Providers Name Role Phone Annette Alvarez APRN, CNP Unavailable [phone] Goran Lloyd Primary Care Provider Jocelyn Davidson RD Unavailable Tamar Murphy APRN INSURANCE BUSINESS ANALYST Unavailable Reason for Referral Patient Education (Routine) - Closed Specialty Diagnoses / Procedures Referred By Contact Refer red To Contact Diabetes Education Diagnoses Controlled type 1 diabetes mellitus with chronic kidney disease, unspecified CKD stage (H) Annette Alvarez, [facility] [id number] [place] [phone] Referral ID Status Reason Start Date Expiration Date Visits Requ ested Visits Authorized [id number] Closed 03/05/2020 03/05/2021 1 1 FLIPPER Reason for Visit Reason Comments Diabetes Encounter Details Date Type Department Care Team Description 03/05/2020 Office Visit [facility] Annette Nuñez Controlled type 1 diabetes mellitus with chronic kidney disease, unspecified CKD stage (H) (Primary Dx); [facility] [place] KIM Monroe CNP 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; [id number] [place] [address] [phone] Social History Tobacco Use Types Packs/Day Years Used Date Smoking Tobacco: Never Smokeless Tobacco: Never Alcohol Use Standard Drinks/Week Comments Yes 0 (1 standard drink = 0.6 oz pure alcoho l) rare Sex Assigned at Date Recorded Female 03/04/2020 12:33 PM TIN FLIPPER COVID-19 Exposure Response Date Recorded In the last month, have you been in contact with No / Unsure 03/05/2020 11:41 AM TIN FLIPPER someone who was confirmed or suspected to have Coronavirus / COVID-19? 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 Intimate partner violence Fear of current or ex partner: Not on file Emotionally abused: Not on file Physically abused: Not on file Forced sexual activity: Not on file Other Topics Concern ??? Parent/sibling w/ CABG, TX or angioplasty before 65F 55M? 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 Intimate partner violence Fear of current or ex partner: Not on file Emotionally abused: Not on file Physically abused: Not on file Forced sexual activity: Not on file Other Topics Concern ??? Parent/sibling w/ CABG, TX or angioplasty before 65F 55M? Not Asked [...] ??? Basic metabolic panel ??? AMBULATORY ADULT SPECIAL PROCEDURES TECHNOLOGIST REFERRAL Radiology/Consults ordered today: More than 50% of the time spent with?Jadiel??on counseling / coordinating her??care??and discussing the above plan of care. The patient indicates understanding of the above issues and agrees withthe plan set forth. ??Total face to face??time was 25??minutes. Follow-up: 3 months with ulysses Alvarez NP Endocrinology [facility] CC: FLIPPER documented in this encounter Miscellaneous Notes Result Encounter Note - Annette Alvarez APRN CNP - 03/05/2020 1:30 PM TIN FLIPPER Manrie, As previously messaged, there was no abnormal [...] in the office. Annette Alvarez NP Endocrinology FLIPPER documented in this encounter Plan of Treatment Upcoming Encounters Date Type Specialty Care Team Description 02/09/2022 Virtual Visit Surgery Mindi Llanes PA-C [address] [place] [address] (Wo rk) Scheduled Referrals Name Type Priority Associated Diagnoses [facility] ADULT Referral Routine Controlled type 1 Expect ed: SPECIAL PROCEDURES TECHNOLOGIST diabetes mellitus with 03/05/2020, Expires: REFERRAL chronic kidney disease, 11/2020 unspecified CKD stage (H) documented as of this encounter Procedures Procedure Name Priority Date/Time Associated Diagnosis Comme nts ALBUMIN RANDOM URINE Routine 03/05/2020 2:40 PM Controlled typ e 1 Results for this QUANTITATIVE TIN FLIPPER diabetes mellitus procedure are in with chronic kidney the resu lts disease, unspecified section . CKD stage (H) TSH WITH FREE T4 Routine 03/05/2020 2:39 PM Controlled type 1 Results for this REFLEX TIN FLIPPER diabetes mellitus procedure are in with chronic kidney the resu lts disease, unspecified section . CKD stage (H) LIPID REFLEX TO Routine 03/05/2020 2:39 PM Controlled type 1 R esults for this DIRECT LDL PANEL TIN FLIPPER diabetes mellitus proced ure are in with chronic kidney the resu lts disease, unspecified section . CKD stage (H) BASIC METABOLIC PANEL Routine 03/05/2020 2:39 PM Controlled ty pe 1 Results for this TIN FLIPPER diabetes mellitus procedure are in with chronic kidney the resu lts disease, unspecified section . CKD stage (H) HEMOGLOBIN A1C Routine 03/05/2020 12:14 Controlled type 1 Resu lts for this PM TIN FLIPPER diabetes mellitus procedure are in with chronic kidney the resu lts disease, unspecified section . CKD stage (H) documented in this encounter Results Albumin Random Urine Quantitative with Creat Ratio (03/05/2020 2:40 PM TIN FLIPPER) [facility] Method Time Signature Creatinine 72 mg/dL 03/06/2020 [place] Urine 8:48 AM [facility] Albumin Urine <5 mg/L 03/06/2020 [place] mg/L 8:56 AM [facility] Albumin Urine Unable to 0 - 25 03/06/2020 [place] mg/g Cr calculate due mg/g Cr 8:56 AM [facility]ICS to low value [facility] Specimen Anatomical Collection Method Collection Time Receive d Time (Source) Location / / Volume Laterality Urine specimen 03/05/2020 2:40 PM 020 2:41 (specimen) TIN FLIPPER PM TIN FLIPPER Annette Alvarez APRN INSURANCE BUSINESS ANALYST LAB - URINE ORDERABLES Performing Organization Address City/State/ZIP Code Phon e Number [facility] [address] [place] [address] (ABNORMAL) Basic metabolic panel (03/05/2020 2:39 PM TIN FLIPPER) [facility] Method Time Signature Sodium 139 133 - 144 03/06/2020 [facility] mmol/L 11:26 AM [facility] Potassium 4.6 3.4 - 5.3 03/06/2020 [facility] mmol/L 11:26 AM [facility] Chloride 108 94 - 109 03/06/2020 [facility] mmol/L 11:26 AM [facility] Carbon Dioxide 25 20 - 32 03/06/2020 [facility] mmol/L 11:43 AM [facility] Anion Gap 6 3 - 14 03/06/2020 [facility] mmol/L 11:43 AM [facility] Glucose 64 (L) 70 - 99 03/06/2020 [facility] mg/dL 11:43 AM [facility] Urea Nitrogen 38 (H) 7 - 30 03/06/2020 [facility] mg/dL 11:43 AM [facility] Creatinine 1.83 (H) 0.52 - 03/06/2020 [place] 1.04 11:43 AM [facility] mg/dL HOSPITAL GFR Estimate 31 (L) >60 03/06/2020 [place] mL/min/{1 11:43 AM [facility] .73_m2} HOSPITAL Comment: Non GFR Calc Starting 03/14/2018, serum creatinine ba sed estimated GFR (eGFR) will be calculated using the Chronic Kidney Dise [facility] Epidemiology Collaboration (CKD-EPI) equation. GFR Estimate If 35 (L) >60 mL/min/{1.73_m2} 03/06/2020 11 :43 AM [place] Black [facility] Comment: GFR Calc Starting 03/14/2018, serum creatinine ba sed estimated GFR (eGFR) will be calculated using the Chronic Kidney Dise [facility] Epidemiology Collaboration (CKD-EPI) equation. Calcium 9.1 8.5 - 10.1 mg/dL 03/06/2020 11:43 AM [facility] Specimen Anatomical Collection Method Collection Time Receive d Time (Source) Location / / Volume Laterality Blood specimen 03/05/2020 2:39 PM 020 2:40 (specimen) TIN FLIPPER PM TIN FLIPPER Annette Alvarez ETL APPLICATION DEVELOPER INSURANCE BUSINESS ANALYST LAB - BLOOD ORDERABLES Performing Organization Address City/State/ZIP Code Phon e Number [facility] [address] [address] [phone] [facility] [address] [place], [place] [address] [facility] [address] [address], [facility] [phone] (ABNORMAL) Lipid panel reflex to direct LDL Fasting (03/05/2020 2:39 PM TIN FLIPPER) athologist Signature Cholesterol 170 <200 mg/dL 03/06/2020 [place] 11:43 AM [facility] Triglycerides 224 (H) <150 mg/dL 03/06/2020 [place] 11:43 AM [facility] Comment: Borderline high: ??150-199 mg/dl High: ? 200-499 mg/dl Very high: ? >499 mg/dl HDL Cholesterol 57 >49 mg/dL 03/06/2020 11:51 AM [facility] LDL Cholesterol 68 <100 mg/dL 03/06/2020 11:51 AM [facility] Calculated [facility] Comment: Desirable: <100 mg/dl Non HDL Cholesterol 113 <130 mg/dL 03/06/2020 11:51 AM [facility] Specimen Anatomical Collection Method Collection Time Receive d Time (Source) Location / / Volume Laterality Blood specimen 03/05/2020 2:39 PM 020 2:40 (specimen) TIN FLIPPER PM TIN FLIPPER Annette Alvarez APRN, CNP LAB - BLOOD ORDERABLES Performing Organization Address City/State/ZIP Code Phon e Number [facility] [address] [place], [place] [address] [facility] [address] [place] [address], U [phone] TSH with free T4 reflex (03/05/2020 2:39 PM TIN FLIPPER) athologist Signature TSH 1.97 0.40 - 4.00 03/06/2020 [facility] mU/L 11:57 AM [facility] Specimen Anatomical Collection Method Collection Time Receive d Time (Source) Location / / Volume Laterality Blood specimen 03/05/2020 2:39 PM 020 2:40 (specimen) TIN FLIPPER PM TIN FLIPPER Annette Alvarez APRN, CNP LAB - BLOOD ORDERABLES Performing Organization Address City/State/ZIP Code Phon e Number [facility] [address] [place] [address] (ABNORMAL) Hemoglobin A1c (03/05/2020 12:14 PM TIN FLIPPER) P athologist Signature Hemoglobin A1C 6.6 (H) 0 - 5.6 % 03/05/2020 [place] 12:36 PM TIN FLIPPER [facility] Comment: Normal <5.7% Prediabetes 5.7-6.4% ??Diab etes 6.5% or higher - adopted from ADA consensus guidelines. 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 Insulin pump in place Insulin pump status documented in this encounter Additional Health Concerns Assessment Noted Time PHQ-9 Depression Total Score: 0 02/26/2020 1:30 PM TIN FLIPPER documented as of this encounter Care Teams Marine Fisheries Technician Relationship Specialty Start Date End Date Goran Lloyd PCP - General Family Practice 12/29/17 05/21/[address] [address] Annette Alvarez, Nurse Practitioner Clinical Nurse 03/22/17 10/21/20 ETL APPLICATION DEVELOPER INSURANCE BUSINESS ANALYST Specialist [address] [place] [address] Coin Counter And Wrapper Dietitian, Registered 05/25/18 [facility] [address] [place] [address] [place] [address] Tamar Murphy APRN Assigned PCP 02/08/20 1 INSURANCE BUSINESS ANALYST [address] [place] [address] documented as of this encounter
--- OUTSIDE RECORDS SUMMARY | 2022-01-24 17:27 | XMS_ITS | Encounter Summary ---
:1965 Author Organization [facility] Address [facility] 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 documented as of this encounter Plan of Treatment Upcoming Encounters Date Type Specialty Care Team Description 02/09/2022 Virtual Visit Surgery Mindi Llanes PA-C [address] [place] [address] (Wo rk) documented as of this encounter Visit Diagnoses Not on filedocumented in this encounter Additional Health Concerns Assessment Noted Time PHQ-9 Depression Total Score: 0 02/26/2020 1:30 PM CAR SERVICER documented as of this encounter Care Teams Customer Care Manager Relationship Specialty Start Date End Date Goran Lloyd PCP - General Family Practice 12/29/17 05/21/[address] [address] Annette Alvarez, Nurse Practitioner Clinical Nurse 03/22/17 10/21/20 FIRE HYDRANT OPERATOR AS400 ANALYST Specialist [address] [place], [place] [id number] Jocelyn Davidson RD Capper Machine Operator Dietitian, Registered 05/25/18 [facility] [place] [address] [address] Tamar Murphy APRN Assigned PCP 02/08/20 1 AS400 ANALYST [address] [place] [address] documented as of this encounter
--- OUTSIDE RECORDS SUMMARY | 2022-01-24 17:27 | XMS_ITS | Encounter Summary ---
:1965 Author Organization [place] Address [address] [place] [address]. 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 documented as of this encounter Plan of Treatment Upcoming Encounters Date Type Specialty Care Team Description 02/09/2022 Virtual Visit Surgery Mindi Llanes PA-C [address] [place] [address] (Wo rk) documented as of this encounter Visit Diagnoses Not on filedocumented in this encounter Care Teams Book Canvasser Relationship Specialty Start Date End Date Goran Lloyd PCP - General Family Practice 12/29/17 05/21/[address] [place] [address] Annette Alvarez, Nurse Practitioner Clinical Nurse 03/22/17 10/21/20 EQUIPMENT SPECIALIST MUSIC BOX MECHANIC Specialist [address] [place] [address] Senior Commercial Loan Officer Dietitian, Registered 05/25/18 [facility] [employer] [place] [place] [address] documented as of this encounter
--- OUTSIDE RECORDS SUMMARY | 2022-01-24 17:27 | XMS_ITS | Encounter Summary ---
:1965 Author Organization [place] Address [address] [facility] [place] [address] Care Team Providers Name Role Phone Annette Alvarez KIM RODRIGUEZ Unavailable [phone] Goran Lloyd Primary Care Provider Jocelyn Davidson RD Unavailable Tamar Murphy APRN MAPPING EDITOR Unavailable Reason for Referral Diagnostic Imaging XR (Routine) - Closed Specialty Diagnoses / Procedures Referred By Contact Refer red To Contact Diagnoses Cough Tamar Murphy APRN CNP Procedures XR Chest [address] [place] [phone] Referral ID Status Reason Start Date Expiration Date Visits Requ ested Visits Authorized [id number] Closed 02/26/2020 02/25/2021 1 1 VIOR INTERVENTIONIST Reason for Visit Reason Comments Cough Encounter Details Date Type Department Care Team Description 02/26/2020 Office Visit [facility] Tamar Murphy Cough (Primary Dx) [place] KIM MAPPING EDITOR [address] [address] [phone] Social History Tobacco Use Types Packs/Day Years Used Date Smoking Tobacco: Never Smokeless Tobacco: Never Alcohol Use Standard Drinks/Week Comments Yes 0 (1 standard drink = 0.6 oz pure alcoho l) rare Sex Assigned at Date Recorded Female 03/04/2020 12:33 PM BEHAVIOR INTERVENTIONIST COVID-19 Exposure Response Date Recorded In the last month, have you been in contact with No / Unsure 02/03/2020 12:21 PM BEHAVIOR INTERVENTIONIST someone who was confirmed or suspected to have Coronavirus / COVID-19? documented as of this encounter Last Filed Vital Signs Vital Sign Reading Time Taken Comments Blood Pressure 138/70 02/26/2020 1:22 PM BEHAVIOR INTERVENTIONIST Pulse 67 02/26/2020 1:22 PM BEHAVIOR INTERVENTIONIST Temperature 37 ??C (98.6 ??F) 02/26/2020 1:22 PM BEHAVIOR INTERVENTIONIST Respiratory Rate 19 02/26/2020 1:31 PM BEHAVIOR INTERVENTIONIST Oxygen Saturation 96% 02/26/2020 1:22 PM BEHAVIOR INTERVENTIONIST Inhaled Oxygen Concentration - - Weight 113.4 kg (250 lb) 02/26/2020 1:22 PM BEHAVIOR INTERVENTIONIST Height 180.3 cm (5' 11) 02/26/2020 1:22 PM BEHAVIOR INTERVENTIONIST Body Mass Index 34.87 02/26/2020 1:22 PM BEHAVIOR INTERVENTIONIST documented in this encounter Patient Instructions Patient InstructionsGiTamar alston APRN CNP - 02/26/2020 1:30 PM CST Prednisone 2 tabs (40 mg) once daily x 5 days. No NSAID use while using prednisone (Advil, ibuprofen, naproxen, Aleve) Consider nasal irrigation (Vilas Pot) Benzonatate 1 tab two times per day as needed for cough. VIOR INTERVENTIONIST documented in this encounter Progress Notes Tamar [...] (Advil, ibuprofen, naproxen, Aleve) Consider nasal irrigation (Vilas Pot) Benzonatate 1 tab two times per day as needed for cough. Return in about 2 weeks (around 03/11/2020) for if not improved. . Tamar Murphy APRN CNP [facility] VIOR INTERVENTIONIST documented in this encounter Plan of Treatment Upcoming Encounters Date Type Specialty Care Team Description 02/09/2022 Virtual Visit Surgery Mindi Llanes, PRETT[facility] [address] [place] [address] (Wo rk) documented as of this encounter Procedures Procedure Name Priority Date/Time Associated Diagnosis Comme nts XR CHEST 2 VIEWS Routine 02/26/2020 2:12 PM Cough Resul ts for this BEHAVIOR INTERVENTIONIST procedure are i n the results section. COVID-19 VIRUS Routine 02/26/2020 1:00 PM Cough Results for this (CORONAVIRUS) BY BEHAVIOR INTERVENTIONIST procedure a re in PCR the results section. documented in this encounter Results XR Chest 2 Views (02/26/2020 2:12 PM BEHAVIOR INTERVENTIONIST) Anatomical Region Laterality Modality Chest Computed Radiography Specimen (Source) Anatomical Location Collection Method / Collectio n Time Received Time / Laterality Volume Impressions 02/26/2020 2:25 PM BEHAVIOR INTERVENTIONIST IMPRESSION: PA and lateral views of the chest. Lungs are clear. Heart is normal in size. No effusions are evid ent. No pneumothorax. Degenerative spine changes are noted. Ol d healed lateral right upper rib fractures and mid left rib fractures are again noted. TONIO CRANE MD Narrative 02/26/2020 2:25 PM BEHAVIOR INTERVENTIONIST CHEST TWO VIEWS ??02/26/2020 2:12 PM HISTORY: [...] again noted. TONIO CRANE MD Tamar Murphy CUSHION SEWER MAPPING EDITOR IMG DIAGNOSTIC IMAGING ORDER DEJUAN Symptomatic COVID-19 Virus (Coronavirus) by PCR (02/26/2020 1:00 PM BEHAVIOR INTERVENTIONIST) [facility] Method Time Signature COVID-19 Nasopharyngeal 02/26/2020 [facility] Virus PCR to 3:08 PM BEHAVIOR INTERVENTIONIST CLINICS [facility] [place] Source COVID-19 Not Detected 02/27/2020 [facility] Virus PCR to 4:31 PM BEHAVIOR INTERVENTIONIST [facility] [place] - DIAGNOSTIC Result LABORATORY, [facility] Comment: Collection of multiple specimens from [...] and amplified using the HDPCR SARS-CoV-2 assay (Hydrocision.). The HDPCRTM JAYDEN S-CoV-2 assay is a reverse tumor registrar real-time polymerase chain reaction (qRT-PCR) test intended [...] (Centers for Disease Control) Testing performed by [facility] ([facility]) [address] [facility] [address] [facility] [address] The test performance characteristics wer e determined [...] Specimen from 02/26/2020 1:00 02/26/2020 nasopharyngeal PM BEHAVIOR INTERVENTIONIST 3:08 PM BEHAVIOR INTERVENTIONIST structure (specimen) Tamar Murphy APRN MAPPING EDITOR LAB - MICRO GENERAL ORDERABL ES Performing Organization Address City/State/ZIP Code Phon e Number [facility] [place] [address] DIAGNOSTIC LABORATORY, [address] [facility] [address] [facility] [address] [place] [address] [place] documented in this encounter Visit Diagnoses Diagnosis Cough - Primary documented in this encounter Additional Health Concerns Infection Onset Date Last Indicated Resolved Time Rule Out COVID-19 02/26/2020 02/26/2020 02/27/2020 4:3 2 PM BEHAVIOR INTERVENTIONIST Assessment Noted Time PHQ-9 Depression Total Score: 0 02/26/2020 1:30 PM BEHAVIOR INTERVENTIONIST documented as of this encounter Care Teams Mortgage Consultant Relationship Specialty Start Date End Date Goran Lloyd PCP - General Family Practice 12/29/17 05/21/20 [facility] [address] [place] [address] Annette Alvarez, Nurse Practitioner Clinical Nurse 03/22/17 10/21/20 KIM MAPPING EDITOR Specialist [address] [place] [address] Labor And Delivery Nurse Dietitian, Registered 05/25/18 [facility] [address] [place] [address] [place] [address] Tamar Murphy APRN Assigned PCP 02/08/20 1 MAPPING EDITOR [address] [place] [address] documented as of this encounter
--- OUTSIDE RECORDS SUMMARY | 2022-01-24 17:27 | XMS_ITS | Encounter Summary ---
:1965 Author Organization [place] Address [address] [facility] [place] [address] Care Team Providers Name Role Phone Annette Alvarezmamadou ALVAREZ AUTOMATION QA LEAD Unavailable Jocelyn Davidson RD Unavailable Tamar Murphy APRN AUTOMATION QA LEAD Unavailable Nikita Gamble Primary Care Provider Reason for Visit Reason Onset Date Comments Hypoglycemia 07/28/2020 Encounter Details Date Type Department Care Team Description 07/28/2020 Telephone [facility] Tamar Murphy APRN Hypoglycemia [place] [id number] [address] [phone] [place] [address] (Wo rk) Social History Tobacco Use Types Packs/Day Years Used Date Smoking Tobacco: Never Smokeless Tobacco: Never Alcohol Use Standard Drinks/Week Comments Yes 0 (1 standard drink = 0.6 oz pure alcoho l) rare Sex Assigned at Date Recorded Female 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 Patient with repeated wording and inconsistent with conversation. Patient's CGM checked and was at 70. Patient given personal glucose drink, Mt Dew, and glucose drinkfrom lab of 150 mg of glucose. mobile home technician called to room to check glucose [...] Virtual Visit Surgery Mindi Llanes PA-C [address] [facility] [address] [place] [address] (Wo rk) documented as of this encounter Visit Diagnoses Not on filedocumented in this encounter Additional Health Concerns Assessment Noted Time PHQ-9 Depression Total Score: 0 02/26/2020 1:30 PM SALES AND TRAINING SPECIALIST documented as of this encounter Care Teams Project Management Advisor Relationship Specialty Start Date End Date Nikita Gamble PCP - General Family Medicine 05/26/20 [facility] [address] [place] [address] Annette Alvarez, Nurse Practitioner Clinical Nurse 03/22/17 10/21/20 [facility] Specialist [address] [place] [address] Paper Reeler Dietitian, Registered 05/25/18 [facility] [address] [place] [address] Tamar Murphy APRN Assigned PCP 02/08/20 1 AUTOMATION QA LEAD [address] [facility] [place], [place] [id number] documented as of this encounter
--- OUTSIDE RECORDS SUMMARY | 2022-01-24 17:27 | XMS_ITS | Encounter Summary ---
:1965 Author Organization [place] Address [address] 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 documented as of this encounter Plan of Treatment Upcoming Encounters Date Type Specialty Care Team Description 02/09/2022 Virtual Visit Surgery Mindi Llanes PA-C [address] [place] [address] (Wo rk) documented as of this encounter Visit Diagnoses Not on filedocumented in this encounter Additional Health Concerns Assessment Noted Time PHQ-9 Depression Total Score: 0 02/26/2020 1:30 PM FOOD AND BEVERAGE CASHIER documented as of this encounter Care Teams Bpm Analyst Relationship Specialty Start Date End Date Nikita Gamble PCP - General Family Medicine 05/26/20 [facility] [address] [place] [address] Anodiser Dietitian, Registered 05/25/[address] [place] [address] Naveen Casiano MD Assigned PCP 11/16/20 [address] [place] [address] documented as of this encounter
--- OUTSIDE RECORDS SUMMARY | 2022-01-24 17:27 | XMS_ITS | Encounter Summary ---
:1965 Author Organization [place] Address [address] [facility] [place] [address] Care Team Providers Name Role Phone Jocelyn Davidson RENATA Unavailable Tamar Murphy APRN RUBBER FACTORY WORKER Unavailable Nikita Gamble Primary Care Provider Reason for Visit Reason Comments Headache Encounter Details Date Type Department Care Team Description 11/06/2020 Office Visit [facility] Naveen Casiano, Migrain e with status [facility] [place] migrainosus, [address] intractable, [place], [place] unspeci fied migraine [address] type (Primary Dx) [phone] Social History Tobacco Use Types Packs/Day Years Used Date Smoking Tobacco: Never Smokeless Tobacco: Never Alcohol Use Standard Drinks/Week Comments Yes 0 (1 standard drink = 0.6 oz pure alcoho l) rare Sex Assigned at Date Recorded Female 03/04/2020 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 COVID-19 Exposure Response Date Recorded In the [...] PA-C [address] [place] [address] (Wo rk) documented as of this encounter [...] Depression Total Score: 0 02/26/2020 1:30 PM SQUAD LEADER documented as of this encounter Care Teams Quality Tech Relationship Specialty Start Date End Date Nikita Gamble PCP - General Family Medicine 05/26/20 [facility] [address] [place], [place] [phone] Jocelyn Davidson RD Customer Relations Specialist Dietitian, Registered 05/25/18 [facility] [place] [address] Tamar Murphy APRN RUBBER FACTORY WORKER Assigned PCP 02/08/20 11/15/20 [address] [place] [address] documented as of this encounter
--- OUTSIDE RECORDS SUMMARY | 2022-01-24 17:27 | XMS_ITS | Encounter Summary ---
:1965 Author Organization [place] Address [facility] [place] [address] Care Team Providers Name Role Phone Annette Alvarez APRN OPERATIONS LABEL CLERK Unavailable [phone] Goran Lloyd Primary Care Provider Jocelyn Davidson Unavailable Reason for Visit Reason Onset Date Comments Forms 11/08/2019 FMLA forms Encounter Details Date Type Department Care Team Description 11/08/2019 Telephone [facility] Annette Alvarez, Forms (FMLA forms) [address] [address] [phone] (Wo rk) Social History Tobacco Use Types Packs/Day Years Used Date Smoking Tobacco: Never Smokeless Tobacco: Never Alcohol Use Standard Drinks/Week Comments Yes 0 (1 standard drink = 0.6 oz pure alcoho l) rare Sex Assigned at Date Recorded Female 03/04/2020 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 I am not allowed to sign forms for the spouse of a patient. This would have to be completed by the spouse's health care provider according to our clinical unit educator. Patient informed. Annette Alvarez NP Endocrinology Telephone [...] Virtual Visit Surgery Mindi Llanes PA-C [address] [facility] [address] [place] [address] (Wo rk) documented as of this encounter Visit Diagnoses Not on filedocumented in this encounter Care Teams Vmware Systems Administrator Relationship Specialty Start Date End Date Goran Lloyd PCP - General Family Practice 12/29/17 05/21/20 [facility] [address] [place] [address] Annette Alvarez, Nurse Practitioner Clinical Nurse 03/22/17 10/21/20 [facility] OPERATIONS LABEL CLERK Specialist [address] [place], [place] [phone] Jocelyn Davidson RD Seed Cleaning Manager Dietitian, Registered 05/25/18 [facility] [place] [place] [address] documented as of this encounter
--- OUTSIDE RECORDS SUMMARY | 2022-01-24 17:27 | XMS_ITS | Encounter Summary ---
:1965 Author Organization [place] Address [address] [place] [address] Care Team Providers Name Role Phone Annette Alvarezmamadou ALVAREZ GUT SNATCHER Unavailable [phone] Goran Lloyd Primary Care Provider Jocelyn Davidson RD Unavailable Reason for Visit Reason Comments Diabetes Encounter Details Date Type Department Care Team Description 11/22/2019 Office Visit [facility] AlvarezAnnette Type 1 rohan syedes mellitus [facility] [place] KIM Monroe GUT SNATCHER with complications (H) [address] [facility] [id number] [place] [address] (Primary Dx) [place] [address] [phone] Social History Tobacco Use Types Packs/Day Years Used Date Smoking Tobacco: Never Smokeless Tobacco: Never Alcohol Use Standard Drinks/Week Comments Yes 0 (1 standard drink = 0.6 oz pure alcoho l) rare Sex Assigned at Date Recorded Female 03/04/2020 12:33 PM VP DATA documented as of this encounter Last Filed [...] Virtual Visit Surgery Mindi Llanes PA-C [address] [facility] [address] [place] [address] (Wo rk) documented as of this encounter Visit Diagnoses Diagnosis Type 1 diabetes mellitus with complicati ons (H) - Primary documented in this encounter Care Teams Director Of Enterprise Architecture Relationship Specialty Start Date End Date Goran Lloyd PCP - General Family Practice 12/29/17 05/21/[address] [address] Annette Alvarez, Nurse Practitioner Clinical Nurse 03/22/17 10/21/20 [facility] RODRIGUEZ Specialist [address] [place] [address] Fast Food Shift Supervisor Dietitian, Registered 05/25/18 [facility] [place] [address] [place] [address] [place] [address] documented as of this encounter
--- OUTSIDE RECORDS SUMMARY | 2022-01-24 17:27 | XMS_ITS | Encounter Summary ---
:1965 Author Organization [place] Address [address] [facility] [place] [address] Care Team Providers Name Role Phone Annette Alvarez APRN, CNP Unavailable Goran Lloyd Primary Care Provider Jocelyn Davidson RD Unavailable Reason for Referral Vision Services (Routine) - Closed Specialty Diagnoses / Procedures Referred By Contact Refer red To Contact Diagnoses Type 1 diabetes mellitus with complications (H) Annette Alvarez [facility], [address] [place], [place] [address] [address] [place] [address] Phone: Referral ID Status Reason Start Date Expiration Date Visits Requ ested Visits Authorized [id number] Closed 11/07/2019 11/06/2020 1 1 Reason for Visit Reason Comments Diabetes Thyroid Disease Encounter Details Date Type Department Care Team Description 11/07/2019 Office Visit [facility] Annette Nuñez Type 1 rohan betes mellitus with complications (H) (Primary Dx); Clinic [place] KIM Monroe CNP Benign essential hypertension [address] [place] [address] [phone] Social History Tobacco Use Types Packs/Day Years Used Date Smoking Tobacco: Never Smokeless Tobacco: Never Alcohol Use Standard Drinks/Week Comments Yes 0 (1 standard drink = 0.6 oz pure alcoho l) rare Sex Assigned at Date Recorded Female 03/04/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 Intimate partner violence Fear of current or ex partner: Not on file Emotionally abused: Not on file Physically abused: Not on file Forced sexual activity: Not on file Other Topics Concern ??? Parent/sibling w/ CABG, [place] or angioplasty before 65F 55M? Not Asked [...] More than 50% of the time spent with??Ms.??Maddock??on counseling / coordinating her??care??and discussing the above plan of care. The patient indicates understanding of the above issues and agrees withthe plan set forth. ??Total face to face??time was 25??minutes. Follow-up: 3 months Annette Alvarez NP Endocrinology [facility] CC: documented in this encounter [...] PA-C [address] [place] [address] (Wo rk) Scheduled Referrals Name Type Priority Associated Diagnoses Order S [facility] OPHTHALMOLOGY ADULT Referral Routine Type 1 diabetes [...] 7.3 (H) 0 - 5.6 % 11/07/2019 [place] 1:[address] [facility] Comment: Normal <5.7% Prediabetes 5.7-6.4% ??Diab etes 6.5% or higher - adopted from ADA consensus guidelines. Specimen Anatomical Collection Method Collection Time Receive d Time (Source) Location / / Volume Laterality Blood specimen 11/07/2019 1:17 PM 020 1:18 (specimen) CDT PM CDT Annette Alvarez SCIENTIFIC DIRECTOR EYELETTER [facility] - BLOOD ORDERABLES Performing Organization Address City/[facility] Phon e Number [facility] [address] [place] [address] documented in this encounter Visit Diagnoses Diagnosis Type 1 diabetes mellitus with complicati ons (H) - Primary Benign essential hypertension Essential hypertension, benign documented in this encounter Care Teams Mold Mechanic Relationship Specialty Start Date End Date Goran Lloyd PCP - General Family Practice 12/29/17 05/21/20 [facility] [address] [place] [address] Annette Alvarez, Nurse Practitioner Clinical Nurse 03/22/17 10/21/20 SCIENTIFIC DIRECTOR EYELETTER Specialist [address] [place], [place] [phone] Jocelyn Davidson RD Electric Installer Dietitian, Registered 05/25/18 [facility] [address] [place] [address] [place] [address] documented as of this encounter
--- OUTSIDE RECORDS SUMMARY | 2022-01-24 17:27 | XMS_ITS | Encounter Summary ---
:1965 Author Organization [place] Address [address] [place] [address]. 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 documented as of this encounter Plan of Treatment Upcoming Encounters Date Type Specialty Care Team Description 02/09/2022 Virtual Visit Surgery Mindi Llanes PA-C [address] [facility] [address] [place] [address] (Wo rk) documented as of this encounter Visit Diagnoses Not on filedocumented in this encounter Care Teams Wire Worker Relationship Specialty Start Date End Date Goran Lloyd PCP - General Family Practice 12/29/17 05/21/20 [facility] [address] [place] [address] Annette Alvarez, Nurse Practitioner Clinical Nurse 03/22/17 10/21/20 DIRECTOR OF ANALYTICAL DEVELOPMENT SUPERVISOR GEAR REPAIR Specialist [address] [place] [address] Production Posting Clerk Dietitian, Registered 05/25/18 [facility] [place] [address] [address] documented as of this encounter
--- OUTSIDE RECORDS SUMMARY | 2022-01-24 17:28 | XMS_ITS | Encounter Summary ---
:1965 Author Organization [place] Address [address] [place] [address] Care Team Providers Name Role Phone Annette Alvarez APRN, CNP Unavailable [phone] Goran Lloyd Primary Care Provider Jocelyn Davidson RD Unavailable Reason for Visit Reason Onset Date Comments Refill Request 02/11/2019 levothyroxine (SYNTH ROID/LEVOTHROID) 150 MCG tablet Encounter Details Date Type Department Care Team Description 02/11/2019 Refill [facility] Annette Alvarez, Refill Request Maricarmen ALVAREZ CNP (levothyroxine [address] [place] [id number] [place] [address] AV E (SYNTHROID/LEVOTHROID) [place], [place] 150 MCG tablet) [address] [address] [place] [address] [phone] Social History Tobacco Use Types Packs/Day Years Used Date Smoking Tobacco: Never Smokeless Tobacco: Never Alcohol Use Standard Drinks/Week Comments Yes 0 (1 standard drink = 0.6 oz pure alcoho l) rare Sex Assigned at Date Recorded Female 03/04/2020 12:33 PM SUPPORT ARCHITECT documented as of this encounter Miscellaneous Notes Telephone Encounter - Pam Boudreaux RN - 02/20/2019 4:49 PM CST Images from the original note were not included. Routing refill request to provider for review/approval because: Thyroid Protocol Alccrn31/21 8:05 PM Recent (12 mo) or future (30 days) visit within the authorizing provider's specialty Normal TSH on file in past 12 months Next 5 appointments (look out 90 days) Feb 21, 2019 9:30 AM SUPPORT ARCHITECT Telephone Visit with Jocelyn Davidson RD [facility] ([facility]) [address] [facility] [address] Apr 05, 2019 6:30 PM SUPPORT ARCHITECT Return Visit with Annette Alvarez APRN CNP [facility] ([facility]) [address] [facility] [address] ORT ARCHITECT Telephone Encounter - Sloan Vick RN - 02/15/2019 8:05 PM CST FNA spoke to patient re: levothyroxine refill. FNA advised of note by Annette Alvarez NP. Patient says her TSH was done at the [facility]. Patient has an appointment on 04/05/19 with Annette. Patient would like refills to be sent to [facility] in [place]. Patient is asking for a 90 day refill if possible. Sloan Vick RN/[facility] ORT ARCHITECT Telephone Encounter - Annette Alvarez APRN CNP - 02/15/2019 4:21 AM SUPPORT ARCHITECT Please call and have patient schedule a follow up visit - not seen for 1 year. Route back to me for refills to last until her scheduled follow up . Annette Alvarez NP Endocrinology ORT ARCHITECT Telephone Encounter - Pam Tavera RN - 02/12/2019 4:32 PM CST Failed protocol ORT ARCHITECT Telephone Encounter - Micah Sawant - 02/11/2019 4:54 PM CST Requested Prescriptions Pending Prescriptions Disp Refills ??? levothyroxine (SYNTHROID/LEVOTHROID) 150 MCG tablet Last Written Prescription Date: 10/17/2018 Last Fill Quantity: 90 tablet, # refills: 0 Last Office Visit: No previous visit found Future Office Visit: Next 5 appointments (look out 90 days) Apr 05, 2019 6:30 PM SUPPORT ARCHITECT Return Visit with Annette Alvarez APRN CNP [facility] ([facility]) [address] [facility] [address] 90 tablet 0 Sig: Take [...] had a positive test, please check TSH. 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
--- OUTSIDE RECORDS SUMMARY | 2022-01-24 17:28 | XMS_ITS | Encounter Summary ---
:1965 Author Organization [place] Address [address] [place] [address]. [place] [address] Care Team Providers Name Role Phone Annette Alvarez APRN INFORMATION TECHNOLOGY ARCHITECT Unavailable [phone] Goran Lloyd Primary Care Provider Jocelyn Davidson RD Unavailable Encounter Details Date Type Department Care Team Description 06/28/2018 Medical Correspondence [facility] Scan, STATEMENT OF Health Info Mgmt Non-Provider MEDICAL NEC ESSITY Srvcs TANDEM [address] [place] [address] Social History Tobacco Use Types Packs/Day Years Used Date Smoking Tobacco: Never Smokeless Tobacco: Never Alcohol Use Standard Drinks/Week Comments Yes 0 (1 standard drink = 0.6 oz pure alcoho l) rare Sex Assigned at Date Recorded Female 03/04/2020 12:33 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 documented as of this encounter Plan of Treatment Upcoming Encounters Date Type Specialty Care Team Description 02/09/2022 Virtual Visit Surgery Mindi Llanes PA-C [address] [place] [address] (Wo rk) documented as of this encounter Visit Diagnoses Not on filedocumented in this encounter Care Teams Insurance Counsel Relationship Specialty Start Date End Date Goran Lloyd PCP - General Family Practice 12/29/17 05/21/[address] [address] Annette Alvarez, Nurse Practitioner Clinical Nurse 03/22/17 10/21/20 NUTRITION SERVICES ASSISTANT INFORMATION TECHNOLOGY ARCHITECT Specialist [address] [place] [address] Supervisor Securities Vault Dietitian, Registered 05/25/18 JET [place] [facility] [place] [address] documented as of this encounter
--- OUTSIDE RECORDS SUMMARY | 2022-01-24 17:28 | XMS_ITS | Encounter Summary ---
:1965 Author Organization [place] Address [address] [facility] [place] [address] Care Team Providers Name Role Phone Annette Alvarez PRESSER HAND YARD INSPECTOR Unavailable [phone] Goran Lloyd Primary Care Provider Jocelyn Davidson RD Unavailable Tamar Murphy PRESSER HAND YARD INSPECTOR Unavailable Nikita Gamble Primary Care Provider Encounter Details Date Type Department Care Team Description 07/07/2018 Records - [facility] CONVERSION Provider, Historica shilpa Social History Tobacco Use Types Packs/Day Years Used Date Smoking Tobacco: Never Smokeless Tobacco: Never Alcohol Use Standard Drinks/Week Comments Yes 0 (1 standard drink = 0.6 oz pure alcoho l) rare Sex Assigned at Date Recorded Female 03/04/2020 12:33 PM [employer]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 documented as of this encounter Plan of Treatment Upcoming Encounters Date Type Specialty Care Team Description 02/09/2022 Virtual Visit Surgery Mindi Llanes PA-C [address] [place] [address] (Wo rk) documented as of this encounter Visit Diagnoses Not on filedocumented in this encounter Additional Health Concerns Infection Onset Date Last Indicated Resolved Time Rule Out COVID-19 02/26/2020 02/26/2020 02/27/2020 4:3 2 PM REGIONAL COMPANY HAZMAT TANKER DRIVER documented as of this encounter Care Teams Storage Facility Rental Clerk Relationship Specialty Start Date End Date EliomariorudyGoran PCP - General Family Practice 12/29/17 05/21/20 [facility] [address] [place] [address] Nikita Gamble PCP - General Family Medicine 05/26/20 [facility] [address] [place] [address] Annette Alvarez, Nurse Practitioner Clinical Nurse 03/22/17 10/21/20 PRESSER HAND YARD INSPECTOR Specialist [address] [place], [place] [phone] Jocelyn Davidson RD Product Development Specialist Dietitian, Registered 05/25/18 [facility] [address] [place] [address] [place] [address] Tamar Murphy APRN Assigned PCP 02/08/20 1 YARD INSPECTOR [address] [place], [place] [phone] documented as of this encounter
--- OUTSIDE RECORDS SUMMARY | 2022-01-24 17:28 | XMS_ITS | Encounter Summary ---
:1965 Author Organization [place] Address [address] [place] [address]. [place] [address] Care Team Providers Name Role Phone Annette Alvarez APRN MATERIAL SCHEDULER Unavailable [phone] Goran Lloyd Primary Care Provider Jocelyn Davidson RD Unavailable Reason for Visit Reason Onset Date Comments Refill Request 10/16/2018 Levothyroxine refill request Encounter Details Date Type Department Care Team Description 10/16/2018 Refill [facility] Annette Alvarez, Refill Request [place] GRAIN ELEVATOR CLERK MATERIAL SCHEDULER (Levothyroxine refill [address] [facility] [address] [facility] request) [place] [address] [phone] (Wo rk) Social History Tobacco Use Types Packs/Day Years Used Date Smoking Tobacco: Never Smokeless Tobacco: Never Alcohol Use Standard Drinks/Week Comments Yes 0 (1 standard drink = 0.6 oz pure alcoho l) rare Sex Assigned at Date Recorded Female 03/04/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 Message sent. Was due for follow up and labs with Annette in Apr 2018. Prescription approved [place] [facility] Refill Protocol x 1. Ashok Bella, RN Telephone Encounter - Ashok Bella, RN - 10/17/2018 10:33 AM CDT Telephone Encounter - Savanah [place] - 10/16/2018 3:44 PM CDT Patient requesting Levothyroxine to [facility]. Savanah Madrid. 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
--- OUTSIDE RECORDS SUMMARY | 2022-01-24 17:28 | XMS_ITS | Encounter Summary ---
:1965 Author Organization [place] Address [address] [place] [address]. 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 documented as of this encounter Plan of Treatment Upcoming Encounters Date Type Specialty Care Team Description 02/09/2022 Virtual Visit Surgery Mindi Llanes PA-C [address] [facility] [address] [place] [address] (Wo rk) documented as of this encounter Visit Diagnoses Not on filedocumented in this encounter Care Teams Boat Outboard Engine Mechanic Relationship Specialty Start Date End Date Goran Lloyd PCP - General Family Practice 12/29/17 05/21/20 [facility] [address] [place] [address] Annette Alvarez, Nurse Practitioner Clinical Nurse 03/22/17 10/21/20 DAIRY SCIENCE TEACHER FRONT OFFICE DEVELOPER Specialist [address] [place] [place] [address] Automobile Body Repairer Helper Dietitian, Registered 05/25/18 [facility] [place] [address] documented as of this encounter
--- OUTSIDE RECORDS SUMMARY | 2022-01-24 17:28 | XMS_ITS | Encounter Summary ---
:1965 Author Organization [place] Address [address] [facility] [place] [address] Care Team Providers Name Role Phone Annette Alvarez APRN, CNP Unavailable [phone] Goran Lloyd Primary Care Provider Jocelyn Davidson RD Unavailable Reason for Visit Reason Onset Date Comments Diabetes Education 07/10/2018 Pump orders Encounter Details Date Type Department Care Team Description 07/10/2018 Telephone [facility] Jocelyn Davidson RD Diabetes Education Clinic [facility] (Pump orders) [address] [place] [address] [address] [place] [address] Social History Tobacco Use Types Packs/Day Years Used Date Smoking Tobacco: Never Smokeless Tobacco: Never Alcohol Use Standard Drinks/Week Comments Yes 0 (1 standard drink = 0.6 oz pure alcoho l) rare Sex Assigned at Date Recorded Female 03/04/2020 12:33 PM CERTIFIED PEDIATRIC NURSE PRACTITIONER documented as of this encounter Miscellaneous Notes [...] alternative plan. Jocelyn Davidson RD, CDE Diabetes Sulfur Chloride Operator documented in this encounter Plan of Treatment Upcoming Encounters Date Type Specialty Care Team Description 02/09/2022 Virtual Visit Surgery Mindi Llanes PA-C [address] [place] [address] (Wo rk) documented as of this encounter Visit Diagnoses Not on filedocumented in this encounter Care Teams Trauma Therapist Relationship Specialty Start Date End Date Goran Lloyd PCP - General Family Practice 12/29/17 05/21/[address] [address] Annette Alvarez, Nurse Practitioner Clinical Nurse 03/22/17 10/21/20 WET PLANT OPERATOR TURNTABLE ENGINEER Specialist [address] [place] [address] Asphalt Still Operator Dietitian, Registered 05/25/[address] [facility] [place] [id number] documented as of this encounter
--- OUTSIDE RECORDS SUMMARY | 2022-01-24 17:28 | XMS_ITS | Encounter Summary ---
:1965 Author Organization [place] Address [address] [place] [address]. [place] [address] Care Team Providers Name Role Phone Annette Alvarez APRN WOOD SCIENCE PROFESSOR Unavailable [phone] Goran Lloyd Primary Care Provider Jocelyn Davidson RD Unavailable Reason for Visit Reason Comments Medication Refill Encounter Details Date Type Department Care Team Description 03/22/2019 Refill [facility] Annette Alvarez, Medication Refill [place] ALVAREZ WOOD SCIENCE PROFESSOR [address] [id number] [address] [place] [address] [phone] Social History Tobacco Use Types Packs/Day Years Used Date Smoking Tobacco: Never Smokeless Tobacco: Never Alcohol Use Standard Drinks/Week Comments Yes 0 (1 standard drink = 0.6 oz pure alcoho l) rare Sex Assigned at Date Recorded Female 03/04/2020 12:33 PM WOOD HEEL FLAP RUBBER documented as of this encounter Miscellaneous Notes Telephone Encounter - Kate Chau RN - 03/23/2019 5:09 PM WOOD HEEL FLAP RUBBER Routing refill request to provider for review/approval [...] the refill encounter. Kate Chau RN Flex HEEL FLAP RUBBER documented in this encounter Plan of Treatment Upcoming Encounters Date Type Specialty Care Team Description 02/09/2022 Virtual Visit Surgery Mindi Llanes PA-C [address] [place] [address] (Wo rk) documented as of this encounter Visit Diagnoses Diagnosis Type 1 diabetes mellitus with complicati ons (H) Uncontrolled type 1 diabetes mellitus wi th stage 3 chronic kidney disease Type I (juvenile type) diabetes mellitus with renal manifestations, uncontrolled PCOS (polycystic ovarian syndrome) Polycystic ovaries documented in this encounter Care Teams Laborer Concrete Paving Relationship Specialty Start Date End Date Ailabouni, Goran PCP - General Family Practice 12/29/17 05/21/[address] [address] Annette Alvarez, Nurse Practitioner Clinical Nurse 03/22/17 10/21/20 HEAD OF COMMISSION DEPARTMENT WOOD SCIENCE PROFESSOR Specialist [address] [place] [address] Founder Chairman And Chief Creative Officer Dietitian, Registered 05/25/18 JET [place] [facility] [place] [address] documented as of this encounter
--- OUTSIDE RECORDS SUMMARY | 2022-01-24 17:28 | XMS_ITS | Encounter Summary ---
:1965 Author Organization [place] Address [address] [facility] [place] [address] Care Team Providers Name Role Phone Annette Alvarez APRN APPLICATION SYSTEMS ARCHITECT Unavailable Goran Lloyd Primary Care Provider Jocelyn Davidson RD Unavailable Reason for Visit Reason Comments Diabetes Education Encounter Details Date Type Department Care Team Description 08/02/2018 [facility] Jocelyn Davidson, Diabet es Education Health/N[place] Visit [address] [place] [address] [place] [phone] [place] [address] Social History Tobacco Use Types Packs/Day Years Used Date Smoking Tobacco: Never Smokeless Tobacco: Never Alcohol Use Standard Drinks/Week Comments Yes 0 (1 standard drink = 0.6 oz pure alcoho l) rare Sex Assigned at Date Recorded Female 03/04/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 Diabetes Self-Management Education & Support SUBJECTIVE/OBJECTIVE Diabetes education in the past 24mo: (P) Yes Diabetes type: (P) Type 1 Disease course: (P) Getting harder to manage Cultural Influences/Ethnic Background: Citizen Of [place] Pt seen today to set up T:Slim [...] set changes, tubing fills, etc) Healthy Eating Cultural/judaism diet restrictions?: (P) No Meal planning: (P) [...] hours Using T:Connect: Yes Dexcom Sharing Code: [id number] Current Treatments: (P) Diet, Insulin Injections, Insulin [...] dentist every 6 months?: (P) Yes Sees sawsmith (foot doctor)?: (P) No Healthy Coping Informal [...] knee replacement. Jocelyn Davidson RD, CDE Diabetes Early Childhood Time Spent: 60 minutes Encounter Type: Individual Any diabetes medication dose changes were made via the CDE Protocol and Collaborative Practice Agreement with the patient's endocrinology provider. A copy of this encounter was shared with the provider. documented in this encounter Plan of Treatment Upcoming Encounters Date Type Specialty Care Team Description 02/09/2022 Virtual Visit Surgery Mindi Llanes PA-C [address] [facility] [address] [place] [address] (Wo rk) documented as of this encounter Visit Diagnoses Diagnosis Type 1 diabetes mellitus with complicati ons (H) - Primary documented in this encounter Care Teams Inspector Chief Relationship Specialty Start Date End Date Goran Lloyd PCP - General Family Practice 12/29/17 05/21/20 [facility] [address] [place] [address] Annette Alvarez, Nurse Practitioner Clinical Nurse 03/22/17 10/21/20 [facility] APPLICATION SYSTEMS ARCHITECT Specialist [address] [place] [address] Machine Maintenance Servicer Dietitian, Registered 05/25/18 [facility] [address] [id number] documented as of this encounter
--- OUTSIDE RECORDS SUMMARY | 2022-01-24 17:28 | XMS_ITS | Encounter Summary ---
:1965 Author Organization [place] Address [address] [facility] [place] [address] Care Team Providers Name Role Phone Annette Alvarez APRN MUD WORKER Unavailable [phone] Goran Lloyd Primary Care Provider Jocelyn Davidson RD Unavailable Reason for Visit Reason Onset Date Comments Patient/info Update 08/01/2018 new pump Encounter Details Date Type Department Care Team Description 08/01/2018 Telephone [facility] Jocelyn Davidson, RENATA Patient/info Update [facility] (new pump) [address] [place] [id number] [phone] Social History Tobacco Use Types Packs/Day Years Used Date Smoking Tobacco: Never Smokeless Tobacco: Never Alcohol Use Standard Drinks/Week Comments Yes 0 (1 standard drink = 0.6 oz pure alcoho l) rare Sex Assigned at Date Recorded Female 03/04/2020 12: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 Please advise Ilda Smith Maintenance Worker House Trailer documented in this encounter Plan of Treatment Upcoming Encounters Date Type Specialty Care Team Description 02/09/2022 Virtual Visit Surgery Mindi Llanes PA-C [address] [facility] [address] [place] [address] (Wo rk) documented as of this encounter Visit Diagnoses Not on filedocumented in this encounter Care Teams Plastic Process Technician Relationship Specialty Start Date End Date Goran Lloyd PCP - General Family Practice 12/29/17 05/21/[address] [address] Annette Alvarez, Nurse Practitioner Clinical Nurse 03/22/17 10/21/20 LPC MUD WORKER Specialist [address] [place], [place] [id number] Jocelyn Davidson RD Assembler Product Dietitian, Registered 05/25/18 [facility] [place] [address] documented as of this encounter
--- OUTSIDE RECORDS SUMMARY | 2022-01-24 17:28 | XMS_ITS | Encounter Summary ---
:1965 Author Organization [place] Address [address] [place] [address]. 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 documented as of this encounter Plan of Treatment Upcoming Encounters Date Type Specialty Care Team Description 02/09/2022 Virtual Visit Surgery Mindi Llanes PA-C 6[address] [facility] [address] [place] [address] (Wo rk) documented as of this encounter Visit Diagnoses Not on filedocumented in this encounter Care Teams Infusion Therapy Nurse Relationship Specialty Start Date End Date Goran Lloyd PCP - General Family Practice 12/29/17 05/21/20 [facility] [address] [place] [address] Annette Alvarez, Nurse Practitioner Clinical Nurse 03/22/17 10/21/20 MUSIC EDUCATION DIRECTOR HOSPITALITY ASSOCIATE Specialist [address] [place] [address] Fabric Finisher Dietitian, Registered 05/25/18 [facility] [place] [address] documented as of this encounter
--- OUTSIDE RECORDS SUMMARY | 2022-01-24 17:28 | XMS_ITS | Encounter Summary ---
:1965 Author Organization [place] Address [address] [facility] [address] Care Team Providers Name Role Phone Annette Alvarez APRN SYRUP MIXER HELPER Unavailable [phone] Goran Lloyd Primary Care Provider Jocelyn Davidson RD Unavailable Reason for Visit Reason Onset Date Comments Erroneous encounter-disregard 07/28/2018 Encounter Details Date Type Department Care Team Description 07/28/2018 Telephone [facility] Jocelyn Davidson, RENATA Erroneous [facility] encounter-disregard [address] [place] [address] [place] [address] [address] [place] [address] Social History Tobacco Use Types Packs/Day Years Used Date Smoking Tobacco: Never Smokeless Tobacco: Never Alcohol Use Standard Drinks/Week Comments Yes 0 (1 standard drink = 0.6 oz pure alcoho l) rare Sex Assigned at Date Recorded Female 03/04/2020 12:33 PM 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 documented as of this encounter Plan of Treatment Upcoming Encounters Date Type Specialty Care Team Description 02/09/2022 Virtual Visit Surgery Mindi Llanes PA-C [address] [place] [address] (Wo rk) documented as of this encounter Visit Diagnoses Diagnosis Type 1 diabetes mellitus with complicati ons (H) Uncontrolled type 1 diabetes mellitus wi th stage 3 chronic kidney disease Type I (juvenile type) diabetes mellitus with renal manifestations, uncontrolled PCOS (polycystic ovarian syndrome) Polycystic ovaries documented in this encounter Care Teams Cryogenics Repairer Relationship Specialty Start Date End Date Goran Lloyd PCP - General Family Practice 12/29/17 05/21/[address] [address] Annette Alvarez, Nurse Practitioner Clinical Nurse 03/22/17 10/21/20 WEARING APPAREL FOLDER SYRUP MIXER HELPER Specialist [address] [place] [address] Fabrication Mig Welder Dietitian, Registered 05/25/18 [facility] [place] [facility] [place] [address] documented as of this encounter
--- OUTSIDE RECORDS SUMMARY | 2022-01-24 17:28 | XMS_ITS | Encounter Summary ---
:1965 Author Organization [place] Address [address] [place] [address]. 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 [address] [place] [address] Annette Alvarez, Nurse Practitioner Clinical Nurse 03/22/17 10/21/20 NUCLEAR WEAPONS MECHANICAL SPECIALIST FORESTRY ENGINEER Specialist [address] [place] [address] Florist Supplies Salesperson Dietitian, Registered 05/25/18 [facility] [place] [address] [address] documented as of this encounter
--- OUTSIDE RECORDS SUMMARY | 2022-01-24 17:28 | XMS_ITS | Encounter Summary ---
:1965 Author Organization [place] Address [address] [place] [address] Care Team Providers Name Role Phone Annette Alvarez APRN SALES EXPERT Unavailable [phone] Goran Lloyd Primary Care Provider Jocelyn Davidson RD Unavailable Reason for Visit Reason Comments Diabetes Education Encounter Details Date Type Department Care Team Description 07/28/2018 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 Diabetes Support Resources: T:Connect Boxever Dexcom Clarity Follow up: Call ([phone]), e-mail ( ), or send Dibsiet message to educator with blood sugar readings in 1 week. Please schedule a follow up sometime soon after your knee surgery. Bring blood glucose meter and logbook with you to all doctor and follow-up appointments. Jocelyn Davidson RD, LD, CDE Diabetes Professor Of Religion [place] [facility] for [facility]: For Your Diabetes or Nutrition Education Appointments Call: [phone] For Diabetes or Nutrition Related Questions Call or Email: [phone] If you need a medication refill please [...] No Other concerns:: None Cultural Influences/Ethnic Background: [place] Patient seen today for Insulin Pump CGM [...] Healthy Eating Healthy Eating Assessed Today: Yes Cultural/scientology diet restrictions?: No Patient on a regular [...] upcoming knee surgery. Diabetes Support Resources: T:Connect Boxever Dexcom Clarity Time Spent: 60 minutes Encounter [...] PA-C [address] [place] [address] (Wo rk) documented as of this encounter Visit Diagnoses Diagnosis Type 1 diabetes mellitus with complicati ons (H) - Primary documented in this encounter Care Teams Shellfish Grower Relationship Specialty Start Date End Date Goran Lloyd PCP - General Family Practice 12/29/17 05/21/[address] [address] Annette Alvarez, Nurse Practitioner Clinical Nurse 03/22/17 10/21/20 SUGAR PRESSER SALES EXPERT Specialist [address] [place], [place] [id number] Jocelyn Davidson RD Tray Line Worker Dietitian, Registered 05/25/18 [facility] [place] [address] documented as of this encounter
--- OUTSIDE RECORDS SUMMARY | 2022-01-24 17:28 | XMS_ITS | Encounter Summary ---
:1965 Author Organization [place] Address [address] [place] [address] Care Team Providers Name Role Phone Annette Alvarez APRN BEEF SPECIALIST Unavailable Goran Lloyd Primary Care Provider Deidre Kirkland RD Unavailable Reason for Visit Reason Onset Date Comments Diabetes Education 09/01/2018 Encounter Details Date Type Department Care Team Description 09/01/2018 Telephone [facility] Deidre Kirkland RD Diabetes Education [facility] - [address] [phone] Social History Tobacco Use Types Packs/Day Years Used Date Smoking Tobacco: Never Smokeless Tobacco: Never Alcohol Use Standard Drinks/Week Comments Yes 0 (1 standard drink = 0.6 oz pure alcoho l) rare Sex Assigned at Date Recorded 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 Sending rx for insulin syringes to [facility] pharmacy. Pt planning to upload her pump in next 1-2 weeks as requested by CDE. Deidre Kirkland RD, CDE Diabetes Tripe Finisher Telephone Encounter - Deidre Kirkland RD - 09/01/2018 1:44 PM CDT Noted a missed call from patient (per caller ID). Attempted to call patient back- no answer- left message encouraging her to send a [employer] message. Otherwise, will attempt to reach once more before end of day. Deidre Kirkland RD, CDE Diabetes Tripe Finisher Addendum Note - Deidre Kirkland RD - 09/01/2018 1:44 PM CDT Addended by: DEIDRE KIRKLAND on: 09/01/2018 04:05 PM Modules accepted: Orders documented in this encounter Plan of Treatment Upcoming Encounters Date Type Specialty Care Team Description 02/09/2022 Virtual Visit Surgery Mindi Llanes PA-C 6[address] [facility] [address] [place] [address] (Wo rk) documented as of this encounter Visit Diagnoses Diagnosis Type 1 diabetes mellitus with complicati ons (H) - Primary documented in this encounter Care Teams Community Service Technician Relationship Specialty Start Date End Date Goran Lloyd PCP - General Family Practice 12/29/17 05/21/20 [facility] [address] [place] [address] Annette Alvarez, Nurse Practitioner Clinical Nurse 03/22/17 10/21/20 REGENERATION OPERATOR BEEF SPECIALIST Specialist [address] [place] [address] Retort Setter Dietitian, Registered 05/25/18 [facility] [place] [facility] [place] [address] documented as of this encounter
--- OUTSIDE RECORDS SUMMARY | 2022-01-24 17:28 | XMS_ITS | Encounter Summary ---
:1965 Author Organization [place] Address [address] [facility] [place] [address] Care Team Providers Name Role Phone Annette Alvarez APRN CORPORATE AFFAIRS MANAGER Unavailable [phone] Goran Lloyd Primary Care Provider Jocelyn Davidson RD Unavailable Reason for Visit Reason Onset Date Comments Diabetes 02/19/2019 High Blood Sugars Encounter Details Date Type Department Care Team Description 02/19/2019 Telephone [facility] Jocelyn Davidson RD Diabetes (High Blood Clinic [facility] - MAGGIE Sugars) [address] [place] [address] [id number] [phone] Social History Tobacco Use Types Packs/Day Years Used Date Smoking Tobacco: Never Smokeless Tobacco: Never Alcohol Use Standard Drinks/Week Comments Yes 0 (1 standard drink = 0.6 oz pure alcoho l) rare Sex Assigned at Date Recorded 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 Jocelyn Davidson RD, CDE Diabetes Technical Publications Manager LANE REFUELER Telephone Encounter - Jaqui Logan RD - [...] Tuesday. Jaqui Logan MS, RD, LD, CDE LANE REFUELER Telephone Encounter - Goran Madera - 02/19/2019 8:46 AM CST Patient having very high numbers that are not registering on meter. As well as multiple Ketones. Hasbeen going on since Tuesday. Please call to discuss. LANE REFUELER documented in this encounter Plan of Treatment Upcoming Encounters Date Type Specialty Care Team Description 02/09/2022 Virtual Visit Surgery Mindi Llanes PA-C [address] [place] [id number] (Wo rk) documented as of this encounter Visit Diagnoses Not on filedocumented in this encounter Care Teams Administration Dean Relationship Specialty Start Date End Date Goran Lloyd PCP - General Family Practice 12/29/17 05/21/[address] [address] Annette Alvarez, Nurse Practitioner Clinical Nurse 03/22/17 10/21/20 BROKERAGE COORDINATOR CORPORATE AFFAIRS MANAGER Specialist [address] [place] [address] Meter Reader Dietitian, Registered 05/25/18 JET SERRANO [facility] S[place]LA [place] [address] documented as of this encounter
--- OUTSIDE RECORDS SUMMARY | 2022-01-24 17:28 | XMS_ITS | Encounter Summary ---
:1965 Author Organization [place] Address [address] [place] [address]. 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 documented as of this encounter Plan of Treatment Upcoming Encounters Date Type Specialty Care Team Description 02/09/2022 Virtual Visit Surgery Mindi Llanes PA-C [address] [facility] [address] [place] [address] (Wo rk) documented as of this encounter Visit Diagnoses Not on filedocumented in this encounter Care Teams Carton Maker Relationship Specialty Start Date End Date Goran Lloyd PCP - General Family Practice 12/29/17 05/21/20 [facility] [address] [place] [address] Annette Alvarez, Nurse Practitioner Clinical Nurse 03/22/17 10/21/20 ANTHROPOMETRIST NECKTIE OPERATOR POCKETS AND PIECES Specialist [address] [place] [address] Necktie Turner Dietitian, Registered 05/25/18 [facility] MAGGIE [facility] [place] [address] documented as of this encounter
--- OUTSIDE RECORDS SUMMARY | 2022-01-24 17:28 | XMS_ITS | Encounter Summary ---
:1965 Author Organization [place] Address [address] [facility] [place] [address] Care Team Providers Name Role Phone Annette Alvarez APRN GLUE PLANT OPERATOR Unavailable Goran Lloyd Primary Care Provider Deidre Kirkland RD Unavailable Reason for Visit Reason Comments Diabetes Education Encounter Details Date Type Department Care Team Description 07/19/2018 [facility] Deidre Kirkland, Diabet es Education Health/[place] Visit [address] [phone] [place] [address] Social History Tobacco Use Types Packs/Day Years Used Date Smoking Tobacco: Never Smokeless Tobacco: Never Alcohol Use Standard Drinks/Week Comments Yes 0 (1 standard drink = 0.6 oz pure alcoho l) rare Sex Assigned at Date Recorded Female 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 Please allow 3 business days for your refills to be completed. Instructions for emailing the Diabetes Educators If you need to communicate a non-urgent message to a Hydrological Technical Officer via email, please send to . Please [...] Insulin Pump Start SUBJECTIVE/OBJECTIVE Cultural Influences/Ethnic Background: Dominican Pt here with , and Tandem pump Rep. Insulin Pump Information Insulin Pump Type: Tandem t:slim Pump Serial Number: [id number] Infusion Set: Tandem Tandem Infusion Set: Auto Soft 90 Insulin Pump Start Insulin Pump Type: Tandem t:slim Pump Serial Number: [id number] Tandem Infusion Set: Auto Soft 90, 6 [...] on: 07/28/[address], CDE Diabetes Engineering Technician Time Spent: 60 Visit Type: Individual Any [...] PA-C [address] [facility] [address] [place] [address] (Wo rk) documented as of this encounter Visit Diagnoses Diagnosis Type 1 diabetes mellitus with complicati ons (H) - Primary Uncontrolled type 1 diabetes mellitus wi th stage 3 chronic kidney disease Type I (juvenile type) diabetes mellitus with renal manifestations, uncontrolled PCOS (polycystic ovarian syndrome) Polycystic ovaries 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
--- OUTSIDE RECORDS SUMMARY | 2022-01-24 17:28 | XMS_ITS | Encounter Summary ---
:1965 Author Organization [place] Address [address] [facility] [place] [address] Care Team Providers Name Role Phone Annette Alvarez KIM ENGINEER INTERN Unavailable [phone] Goran Lloyd Primary Care Provider Jocelyn Davidson RD Unavailable Reason for Visit Reason Onset Date Comments Diabetes Education 07/31/2018 appointment- pump fa ilure Encounter Details Date Type Department Care Team Description 07/31/2018 Telephone [facility] Jocelyn Davidson RD Diabetes Education Clinic [facility] (appointment- pump [address] failure) [place] [address] [address] [place] [address] Social History Tobacco Use Types Packs/Day Years Used Date Smoking Tobacco: Never Smokeless Tobacco: Never Alcohol Use Standard Drinks/Week Comments Yes 0 (1 standard drink = 0.6 oz pure alcoho l) rare Sex Assigned at Date Recorded 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 Let pt know that instructional writer could see her at 9:30 or 1:30 on Tue, 08/02. Pt to call [phone] to confirm if one of those times will work for her. Jocelyn Davidson RD, CDE Diabetes Citrix Lead documented in this encounter Plan of Treatment Upcoming Encounters Date Type Specialty Care Team Description 02/09/2022 Virtual Visit Surgery Mindi Llanes PA-C [address] [place] [address] (Wo rk) documented as of this encounter Visit Diagnoses Not on filedocumented in this encounter Care Teams Micro Computer Specialist Relationship Specialty Start Date End Date Goran Lloyd PCP - General Family Practice 12/29/17 05/21/20 [facility] [address] [place] [address] Annette Alvarez, Nurse Practitioner Clinical Nurse 03/22/17 10/21/20 TANKROOM WORKER ENGINEER INTERN Specialist [address] [place] [address] Pen Rider Dietitian, Registered 05/25/18 [facility] MAGGIE [facility] [place] [address] [place] [address] documented as of this encounter
--- OUTSIDE RECORDS SUMMARY | 2022-01-24 17:28 | XMS_ITS | Encounter Summary ---
:1965 Author Organization [place] Address [address] [place] [address]. [place] [address] Care Team Providers Name Role Phone Annette Alvarez Mabel LIVE HANGER HOSPICE MUSIC THERAPIST Unavailable Goran Lloyd Primary Care Provider Jocelyn Davidson RD Unavailable Reason for Visit Reason Comments Medication Refill Encounter Details Date Type Department Care Team Description 09/30/2018 Refill [facility] Annette Alvarez, Medication Refill [place] LIVE HANGER HOSPICE MUSIC THERAPIST [address] [phone] [place] [address] (Wo rk) Social History Tobacco Use Types Packs/Day Years Used Date Smoking Tobacco: Never Smokeless Tobacco: Never Alcohol Use Standard Drinks/Week Comments Yes 0 (1 standard drink = 0.6 oz pure alcoho l) rare Sex Assigned at Date Recorded 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
--- OUTSIDE RECORDS SUMMARY | 2022-01-24 17:28 | XMS_ITS | Encounter Summary ---
:1965 Author Organization [place] Address [address] [facility] [place] [address] Care Team Providers Name Role Phone Annette Alvarez APRN MMD UNIT TEACHER Unavailable [phone] Goran Lloyd Primary Care Provider Jocelyn Davidson RD Unavailable Reason for Visit Reason Comments Diabetes Education Encounter Details Date Type Department Care Team Description 10/11/2018 [facility] Yadira Garcia Diabe gail Education Health/Nurse Clinic [place] Visit [address] [facility] [phone] [place], [place] (Work) [address] Social History Tobacco Use Types Packs/Day Years Used Date Smoking Tobacco: Never Smokeless Tobacco: Never Alcohol Use Standard Drinks/Week Comments Yes 0 (1 standard drink = 0.6 oz pure alcoho l) rare Sex Assigned at Date Recorded 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 documented as of this encounter Progress Notes [...] Getting harder to manage Cultural Influences/Ethnic Background: [place] Pt seen today to set up T:Slim [...] Healthy Eating Healthy Eating Assessed Today: No Cultural/gnosticism diet restrictions?: No Meal planning: Avoiding sweets, [...] Insulin Time: 4 hours Using T:Connect: Yes Inn[employer] Sharing Code: [id number] Current Treatments: Diet, Insulin Injections, Insulin Pump [...] Sees dentist every 6 months?: Yes Sees abrasive grader (foot doctor)?: No Healthy Coping Healthy Coping [...] Virtual Visit Surgery Mindi Llanes PA-C [address] [facility] W[address] [place] [address] (Wo rk) documented as of this encounter Visit Diagnoses Diagnosis Type 1 diabetes mellitus with complicati ons (H) - Primary documented in this encounter Care Teams Textile Machine Operator Relationship Specialty Start Date End Date Goran Lloyd PCP - General Family Practice 12/29/17 05/21/20 [facility] [address] [place] [address] Annette Alvarez, Nurse Practitioner Clinical Nurse 03/22/17 10/21/20 BOMB SQUAD OFFICER MMD UNIT TEACHER Specialist [address] [place], [place] [phone] Jocelyn Davidson, RD Glass Smoother Dietitian, Registered 05/25/18 [facility] SANTYDEXTER [place] [address] documented as of this encounter
--- OUTSIDE RECORDS SUMMARY | 2022-01-24 17:28 | XMS_ITS | Encounter Summary ---
:1965 Author Organization [place] Address [address] [facility] [place] [address] Care Team Providers Name Role Phone Annette Alvarez APRN LAW FIRM CONSULTANT Unavailable [phone] Goran Lloyd Primary Care Provider Jocelyn Davidson RD Unavailable Reason for Visit Reason Onset Date Comments Medication Refill 12/16/2018 NOVOLOG VIAL 100 UNI T/ML soln Encounter Details Date Type Department Care Team Description 12/16/[address] 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 documented as of this encounter Miscellaneous [...] PA-C [address] [place] [address] (Wo rk) documented as of this encounter Visit Diagnoses Diagnosis Type 1 diabetes mellitus with complicati ons (H) Uncontrolled type 1 diabetes mellitus wi th stage 3 chronic kidney disease Type I (juvenile type) diabetes mellitus with renal manifestations, uncontrolled PCOS (polycystic ovarian syndrome) Polycystic ovaries documented in this encounter Care Teams Respite Coordinator Relationship Specialty Start Date End Date Goran Lloyd PCP - General Family Practice 12/29/17 05/21/[address] [address] Annette Alvarez, Nurse Practitioner Clinical Nurse 03/22/17 10/21/20 CUPROUS CHLORIDE HELPER LAW FIRM CONSULTANT Specialist [address] [place], [place] [phone] Jocelyn Davidson RD Marine Engineering Technicians Dietitian, Registered 05/25/18 JET SERRANO [facility] S[place]YTEMPE [place] [id number] documented as of this encounter
--- OUTSIDE RECORDS SUMMARY | 2022-01-24 17:29 | XMS_ITS | Encounter Summary ---
:1965 Author Organization [place] Address [address] [place] [address]. 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 documented as of this encounter Plan of Treatment Upcoming Encounters Date Type Specialty Care Team Description 02/09/2022 Virtual Visit Surgery Mindi Llanes PA-C [address] [facility] [address] [place] [address] (Wo rk) documented as of this encounter Visit Diagnoses Not on filedocumented in this encounter Care Teams Chief Of Pediatric Urology Relationship Specialty Start Date End Date Goran Lloyd PCP - General Family Practice 12/29/17 05/21/20 [facility] [address] [place] [address] Annette Alvarez, Nurse Practitioner Clinical Nurse Specialist 10/21/20 SUPERVISOR CELL OPERATION THERAPEUTIC RADIOLOGIST [address] [place] [address] documented as of this encounter
--- OUTSIDE RECORDS SUMMARY | 2022-01-24 17:29 | XMS_ITS | Encounter Summary ---
:1965 Author Organization [place] Address [address] [place] [address]. [place] [address] Care Team Providers Name Role Phone Antonio Annette Mabel TRASH HAULER SECURITY AUDITOR Unavailable [phone] Goran Lloyd Primary Care Provider Reason for Visit Reason Comments Medication Refill Encounter Details Date Type Department Care Team Description 01/12/2018 Refill [facility] Annette Alvarez, Medication Refill [place] TRASH HAULER SECURITY AUDITOR [address] [phone] [place] [address] (Wo rk) Social History Tobacco Use Types Packs/Day Years Used Date Smoking Tobacco: Never Smokeless Tobacco: Never Alcohol Use Standard Drinks/Week Comments Yes 0 (1 standard drink = 0.6 oz pure alcoho l) rare Sex Assigned at Date Recorded Female 03/04/2020 12:33 PM NUCLEAR PHARMACIST documented as of this encounter Miscellaneous Notes Telephone Encounter - Maye Souza RN - 01/12/2018 3:00 PM CDT Medication approved per standing orders. Maye Souza RN documented in this encounter Plan of Treatment Upcoming Encounters Date Type Specialty Care Team Description 02/09/2022 Virtual Visit Surgery Mindi Llanes PA-C 6[address] [facility] [address] [place] [address] (Wo rk) documented as of this encounter Visit Diagnoses Diagnosis Uncontrolled type 1 diabetes with renal manifestation - Primary Type I (juvenile type) diabetes mellitus with renal manifestations, uncontrolled Type 1 diabetes mellitus with complicati ons (H) documented in this encounter Care Teams Gardening Supervisor Relationship Specialty Start Date End Date Goran Lloyd PCP - General Family Practice 12/29/17 05/21/[address] [address] Annette Alvarez, Nurse Practitioner Clinical Nurse Specialist 10/21/20 TRASH HAULER SECURITY AUDITOR [address] [place] [address] documented as of this encounter
--- OUTSIDE RECORDS SUMMARY | 2022-01-24 17:29 | XMS_ITS | Encounter Summary ---
:1965 Author Organization [place] Address [address] [facility] [place] [address] Care Team Providers Name Role Phone Annette Alvarezmamadou ALVAREZ RAT EXTERMINATOR Unavailable [phone] Goran Lloyd Primary Care Provider Reason for Visit Reason Onset Date Comments Forms 01/26/2018 DMV form insulin dep endent Encounter Details Date Type Department Care Team Description 01/26/2018 Telephone [facility] Annette Alvarez Forms (DMV form insulin Clinic [place] KIM Monroe RAT EXTERMINATOR dependent) [address] [place] [address] [phone] Social History Tobacco Use Types Packs/Day Years Used Date Smoking Tobacco: Never Smokeless Tobacco: Never Alcohol Use Standard Drinks/Week Comments Yes 0 (1 standard drink = 0.6 oz pure alcoho l) rare Sex Assigned at Date Recorded Female 03/04/2020 12:33 PM STONEWORK SUPERVISOR documented as of this encounter Miscellaneous Notes Telephone Encounter - Mimi Cyr CMA - 01/26/2018 1:32 PM CDT Insulin-Treated Diabetes Mellitus Report form completed and faxed to the [place] Department of Public Safety at fax# [phone]. (ph#[phone]) Original given to patient. Copy sent to abstracting to be entered into the EMR. Mimi Cyr M.A. documented in this encounter Plan of Treatment Upcoming Encounters Date Type Specialty Care Team Description 02/09/2022 Virtual Visit Surgery Mindi Llanes PA-C 6[address] [facility] [address] [place] [address] (Wo rk) documented as of this encounter Visit Diagnoses Not on filedocumented in this encounter Care Teams Contract Attorney Relationship Specialty Start Date End Date Goran Lloyd PCP - General Family Practice 12/29/17 05/21/[address] [address] Annette Alvarez, Nurse Practitioner Clinical Nurse Specialist 10/21/20 BENCH LOOM WEAVER RAT EXTERMINATOR [address] [place] [address] documented as of this encounter
--- OUTSIDE RECORDS SUMMARY | 2022-01-24 17:29 | XMS_ITS | Encounter Summary ---
:1965 Author Organization [place] Address [address] [place] [address]. [place] [address] Care Team Providers Name Role Phone Annette Alvarezmamadou ALVAREZ INSIDE SALES PERSON Unavailable [phone] Goran Lloyd Primary Care Provider Reason for Visit Reason Onset Date Comments Medication Refill 03/25/2018 [facility] 1 MG kit Encounter Details Date Type Department Care Team Description 03/24/2018 Refill [facility] AlvarezAnnette, Medication Refill [place] SIDING COREBOARD INSPECTOR INSIDE SALES PERSON ([facility] 1 MG [address] [facility] [address] [facility] kit) [place] [address] [phone] (Wo rk) Social History Tobacco Use Types Packs/Day Years Used Date Smoking Tobacco: Never Smokeless Tobacco: Never Alcohol Use Standard Drinks/Week Comments Yes 0 (1 standard drink = 0.6 oz pure alcoho l) rare Sex Assigned at Date Recorded Female 03/04/2020 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 CEREAL documented as of this encounter Miscellaneous Notes Telephone Encounter - Pam Boudreaux RN - 03/27/2018 3:55 PM CST Prescription approved per [facility] Refill Protocol Pam Boudreaux RN BS RVISOR CEREAL Telephone Encounter - Lena Mcmahon - 03/25/2018 [...] 90 days) Mar 30, 2018 1:00 PM SUPERVISOR CEREAL Return Visit with Annette [facility] APRN [facility] [address] [place] 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
--- OUTSIDE RECORDS SUMMARY | 2022-01-24 17:29 | XMS_ITS | Encounter Summary ---
:1965 Author Organization [place] Address [address] [facility] [place] [address] Care Team Providers Name Role Phone Lashae Alvarez KIM RODRIGUEZ Unavailable [phone] Goran Lloyd Primary Care Provider Reason for Visit Reason Comments Diabetes discuss Hypoglycemia event 2 017 and DMV letter Encounter Details Date Type Department Care Team Description 01/26/2018 Office Visit [facility] Lashae Alvarez Type 1 rohan radha mellitus with complications (H) (Primary Dx); [facility] [place] KIM Monroe CNP Acquired hypothyroidism; [address] [place] [id number] [place] [address] 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 [address] [phone] Social History Tobacco Use Types Packs/Day Years Used Date Smoking Tobacco: Never Smokeless Tobacco: Never Alcohol Use Standard Drinks/Week Comments Yes 0 (1 standard drink = 0.6 oz pure alcoho l) rare Sex Assigned at Date Recorded Female 03/04/2020 12:33 PM SENIOR COMPENSATION CONSULTANT documented as of this encounter Last [...] have any questions. 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 Prevention: Flu Shot- Pneumovax- recommended Opthalmology-yes [...] March 2018. Lashae Alvarez NP Endocrinology [facility] CC: documented in this encounter Miscellaneous Notes Addendum Note - Lashae Alvarez APRN CNP - 01/30/2018 6:08 PM SENIOR COMPENSATION CONSULTANT Addended by: LASHAE ALVAREZ on: 01/30/2018 06:08 PM Modules accepted: Orders OR COMPENSATION CONSULTANT documented in this encounter Plan of Treatment Upcoming Encounters Date Type Specialty Care Team Description 02/09/2022 Virtual Visit Surgery Mindi Llanes PA-C [address] [place] [address] (Wo rk) documented as of this encounter [...] T4 Free 1.12 0.76 - 1.46 01/26/2018 [facility] ng/dL 5:16 PM CDT [facility] Specimen Anatomical Collection Method Collection Time Receive d Time (Source) Location / / Volume Laterality Blood specimen 01/26/2018 12:33 8 (specimen) PM CDT 12:34 PM CDT Lashae Alvarez APRN DIESEL MOTOR MECHANIC LAB - BLOOD ORDERABLES Performing Organization Address City/[facility]/ZIP Code Phon e Number [facility] [place] [address] [place] [address] (ABNORMAL) TSH (01/26/2018 12:33 PM CDT) athologist Signature TSH 0.09 (L) 0.40 - 01/26/2018 [facility] 4.00 mU/L 5:16 PM CDT [facility] Specimen Anatomical Collection Method Collection Time Receive d Time (Source) Location / / Volume Laterality Blood specimen 01/26/2018 12:33 8 (specimen) PM CDT 12:34 PM CDT Lashae Alvarez APRN DIESEL MOTOR MECHANIC LAB - BLOOD ORDERABLES Performing Organization Address City/[facility]/ZIP Code Phon e Number [facility] [place] [address], [place] [address] (ABNORMAL) Basic metabolic panel (01/26/2018 12:33 PM CDT) Analysis Performed At [facility] logist Time Signature Sodium 141 133 - 144 01/26/2018 [place] mmol/L 5:08 PM [facility] Potassium 4.5 3.4 - 5.3 01/26/2018 [place] mmol/L 5:08 PM [facility] Chloride 107 94 - 109 01/26/2018 [place] mmol/L 5:08 PM [facility] Carbon Dioxide 26 20 - 32 01/26/2018 [place] mmol/L 5:08 PM [facility] Anion Gap 8 3 - 14 01/26/2018 [place] mmol/L 5:08 PM [facility] Glucose 140 (H) 70 - 99 01/26/2018 [place] mg/dL 5:08 PM [facility] Comment: Non Fasting Urea Nitrogen 19 7 - 30 mg/dL 01/26/2018 5:08 PM [facility] Creatinine 1.47 (H) 0.52 - 1.04 01/26/2018 5:08 PM [facility] mg/dL [facility] GFR Estimate 37 (L) >60 mL/min/1.7m2 01/26/2018 5:08 PM F [facility] Comment: Non GFR Calc GFR Estimate If 45 (L) >60 mL/min/1.7m2 01/26/2018 5:08 P M [facility] Black [facility] Comment: GFR Calc Calcium 9.5 8.5 - 10.1 mg/dL 01/26/2018 5:[address] [facility] Specimen Anatomical Collection Method Collection Time Receive d Time (Source) Location / / Volume Laterality Blood specimen 01/26/2018 12:33 8 (specimen) PM CDT 12:34 PM CDT Lashae Alvarez APRN DIESEL MOTOR MECHANIC LAB - BLOOD ORDERABLES Performing Organization Address City/State/ZIP Code Phon e Number 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
--- OUTSIDE RECORDS SUMMARY | 2022-01-24 17:29 | XMS_ITS | Encounter Summary ---
:1965 Author Organization [place] Address [address] [place] [address]. [place] [address] Care Team Providers Name Role Phone No Ref-Primary, Physician Primary Care Provider Annette Alvarez PIPELINE MAINTENANCE SUPERVISOR BENDER MACHINE OPERATOR Unavailable [phone] Reason for Visit Reason Onset Date Comments Medication Question 03/22/2017 Encounter Details Date Type Department Care Team Description 03/22/2017 Telephone [facility] Annette Alvarez, Medication Question [place] PIPELINE MAINTENANCE SUPERVISOR BENDER MACHINE OPERATOR [address] [phone] (Wo rk) Social History Tobacco Use Types Packs/Day Years Used Date Smoking Tobacco: Never Smokeless Tobacco: Never Alcohol Use Standard Drinks/Week Comments Yes 0 (1 standard drink = 0.6 oz pure alcoho l) rare Sex Assigned at Date Recorded Female 03/04/2020 12:33 PM PLUG STITCHER documented as of this encounter Miscellaneous Notes Telephone Encounter - Karley Kessler CMA - 03/22/2017 11:46 AM PLUG STITCHER There is a 2nd telephone message with the same info as below from today. I am closing this encounterto avoid confusion. Please see the other message for f/u. Karley Kessler CMA STITCHER Telephone Encounter - Olga Thompson I - [...] to reach patient: Home number on file [phone] (home) Best Time: anytime Can we leave a detailed message on this number? YES STITCHER documented in this encounter Plan of Treatment Upcoming Encounters Date Type Specialty Care Team Description 02/09/2022 Virtual Visit Surgery Mindi Llanes PA-C [address] [facility] [address] [place] [address] (Wo rk) documented as of this encounter Visit Diagnoses Not on filedocumented in this encounter Care Teams Cotton Ginner Helper Relationship Specialty Start Date End Date No Ref-Primary, PCP - General 12/25/14 12/28/17 Physician Annette Alvarez, Nurse Practitioner Clinical Nurse Specialist 10/21/20 PIPELINE MAINTENANCE SUPERVISOR BENDER MACHINE OPERATOR [address] [place], [place] [phone] documented as of this encounter
--- OUTSIDE RECORDS SUMMARY | 2022-01-24 17:29 | XMS_ITS | Encounter Summary ---
:1965 Author Organization [place] Address [address] [facility] [place] [address] Care Team Providers Name Role Phone No Ref-Primary, Physician Primary Care Provider [phone] Annette Alvarez APRN BARKEEP Unavailable [phone] Goran Lloyd Primary Care Provider Jocelyn Davidson RD Unavailable Tamar Murphy INDUSTRIAL MACHINERY MECHANIC [place] Unavailable Nikita Gamble Primary Care Provider Reason for Visit Reason Comments Consult Infectious Disease Encounter Details Date Type Department Care Team Description 10/13/2017 [facility] (Infectious [facility] Fredy Pavon MD Disease) Patient Access [address] [address] [place], [place] [phone] [address] Social History Tobacco Use Types Packs/Day Years Used Date Smoking Tobacco: Never Smokeless Tobacco: Never Alcohol Use Standard Drinks/Week Comments Yes 0 (1 standard drink = 0.6 oz pure alcoho l) rare Sex Assigned at Date Recorded Female 03/04/2020 12:33 PM BRIDGE MAINTENANCE WORKER COVID-19 Exposure Response Date Recorded In the last month, have you been in contact with No / Unsure 03/05/2020 11:41 AM BRIDGE MAINTENANCE WORKER someone who was confirmed or suspected to have Coronavirus / COVID-19? documented as of this encounter Plan of Treatment Upcoming Encounters Date Type Specialty Care Team Description 02/09/2022 Virtual Visit Surgery Mindi Llanes PA-C [address] [place] [address] (Wo rk) documented as of this encounter Visit Diagnoses Not on filedocumented in this encounter Additional Health Concerns Infection Onset Date Last Indicated Resolved Time Rule Out COVID-19 02/26/2020 02/26/2020 02/27/2020 4:3 2 PM BRIDGE MAINTENANCE WORKER documented as of this encounter Care Teams Biometric Fingerprinting Technician Relationship Specialty Start Date End Date No Ref-Primary, PCP - General 12/25/14 12/28/17 Physician Goran Lloyd PCP - General Family Practice 12/29/17 05/21/20 [facility] [address] [place] [address] Nikita Gamble PCP - General Family Medicine 05/26/20 [facility] [address] [place] [address] Annette Alvarez, Nurse Practitioner Clinical Nurse 03/22/17 10/21/20 INDUSTRIAL MACHINERY MECHANIC BARKEEP Specialist [address] [place], [place] [phone] Jocelyn Davidson [address] Installation & Maintenance Executive Dietitian, Registered 05/25/18 [facility] MAGGIE [facility] [place] [address] Tamar Murphy APRN Assigned PCP 02/08/20 [address] [address] [place] [address] documented as of this encounter
--- OUTSIDE RECORDS SUMMARY | 2022-01-24 17:29 | XMS_ITS | Encounter Summary ---
:1965 Author Organization [place] Address [address] [place] [address]. [place] [address] Care Team Providers Name Role Phone No Ref-Primary, Physician Primary Care Provider [phone] Annette Alvarez APRN BONE TENDER Unavailable Reason for Visit Reason Comments Diabetes Encounter Details Date Type Department Care Team Description 06/17/2017 Office Visit [facility] Annette Alvarez Type 1 rohan radha mellitus with complications (H) (Primary Dx); Clinic [place] KIM Monroe BONE TENDER Abnormal weight gain; [phone] [place] [address] Morbid obesity (H); [place], [place] Diabeti c polyneuropathy associated with type 1 diabetes mellitus (H); [id number] 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 History of right nephrectomy 12 years ago - was having severe pain prior to surgery, thinks due topolycystic kidney disease Lives in [place] Very distressed about weight gain and inability [...] Follow-up: 1 month Annette Alvarez NP Endocrinology [facility] CC: documented in this encounter Plan of Treatment Upcoming Encounters Date Type Specialty Care Team Description 02/09/2022 Virtual Visit Surgery Mindi Llanes PA-C [address] [facility] [address] [place] [address] (Wo rk) documented as of this encounter Visit Diagnoses Diagnosis Type 1 diabetes mellitus with complicati ons (H) - Primary Abnormal weight gain Morbid obesity (H) Morbid obesity Diabetic polyneuropathy associated with type 1 diabetes mellitus (H) 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
--- OUTSIDE RECORDS SUMMARY | 2022-01-24 17:29 | XMS_ITS | Encounter Summary ---
:1965 Author Organization [place] Address [address] [facility] [place] [address] Care Team Providers Name Role Phone No Ref-Primary, Physician Primary Care Provider [phone] Annette Alvarez APRN SACK CLEANER Unavailable [phone] Goran Lloyd Primary Care Provider Jocelyn Davidson RD Unavailable Tamar Murphy CASING FLUSHER SACK CLEANER Unavailable Nikita Gamble Primary Care Provider Reason for Visit Reason Comments Forms return to work Encounter Details Date Type Department Care Team Description 11/02/2017 [facility] Vu Isaacs, Fo dayan (return to [facility] Kim MERCADO work) [address] [place] [address] [address] [place] [address] [place], [place] [phone] [facility] Social History Tobacco Use Types Packs/Day Years Used Date Smoking Tobacco: Never Smokeless Tobacco: Never Alcohol Use Standard Drinks/Week Comments Yes 0 (1 standard drink = 0.6 oz pure alcoho l) rare Sex Assigned at Date Recorded Female 03/04/2020 12:33 PM STAFF SERVICES MANAGER COVID-19 Exposure Response Date Recorded In the last month, have you been in contact with No / Unsure 03/05/2020 11:41 AM STAFF SERVICES MANAGER someone who was confirmed or suspected to have Coronavirus / COVID-19? documented as of this encounter Plan of Treatment Upcoming Encounters Date Type Specialty Care Team Description 02/09/2022 Virtual Visit Surgery Mindi Llanes PA-C [address] [place] [address] (Wo rk) documented as of this encounter Visit Diagnoses Not on filedocumented in this encounter Additional Health Concerns Infection Onset Date Last Indicated Resolved Time Rule Out COVID-19 02/26/2020 02/26/2020 02/27/2020 4:3 2 PM STAFF SERVICES MANAGER documented as of this encounter Care Teams Oil Heaterman Relationship Specialty Start Date End Date No Ref-Primary, PCP - General 12/25/14 12/28/17 Physician Goran Lloyd PCP - General Family Practice 12/29/17 05/21/20 [facility] [address] [place] [address] Nikita Gamble PCP - General [facility] Medicine 05/26/20 [facility] [address] [place] [address] Annette Alvarez, Nurse Practitioner Clinical Nurse 03/22/17 10/21/20 CASING FLUSHER SACK CLEANER Specialist [address] [place] [address] Mold Tooling Technician Dietitian, Registered 05/25/18 [facility] MAGGIE [facility] [place] [address] Tamar Murphy APRN Assigned PCP 02/08/20 1 SACK CLEANER [address] [place], [place] [phone] documented as of this encounter
--- OUTSIDE RECORDS SUMMARY | 2022-01-24 17:29 | XMS_ITS | Encounter Summary ---
:1965 Author Organization [place] Address [address] [facility] [place] [address] Care Team Providers Name Role Phone Annette Alvarez APRN PVC LOADER Unavailable Goran Lloyd Primary Care Provider Jocelyn Davidson RD Unavailable Reason for Visit Reason Onset Date Comments Forms 05/26/2018 Tandem pump Encounter Details Date Type Department Care Team Description 05/26/2018 Telephone [facility] Jocelyn Davidson, RENATA Forms (Tandem pump) [address] [phone] Social History Tobacco Use Types Packs/Day Years Used Date Smoking Tobacco: Never Smokeless Tobacco: Never Alcohol Use Standard Drinks/Week Comments Yes 0 (1 standard drink = 0.6 oz pure alcoho l) rare Sex Assigned at Date Recorded Female 03/04/2020 12:33 PM BRUSH CUTTER documented as of this encounter Miscellaneous Notes Telephone Encounter - Jocelyn Davidson, RENATA - 05/26/2018 3:21 PM CST Images from the original note were not included. Patient filled out Tandem AOB after CDE visit 05/25/18. Forms faxed on 05/26/18- follow up e-mail also sent to Barber Corona and Michelle Mary at [facility]. Original forms with Mimi Cyr MA/ Annette lAvarez NP. Synedgen message sent to Marnie as fyi. Jocelyn Davidson RD, CDE Diabetes Human Resources Executive H CUTTER documented in this encounter Plan of Treatment Upcoming Encounters Date Type Specialty Care Team Description 02/09/2022 Virtual Visit Surgery Mindi Llanes PA-C [address] [facility] [address] [place] [address] (Wo rk) documented as of this encounter Visit Diagnoses Not on filedocumented in this encounter Care Teams Director Dermatology Relationship Specialty Start Date End Date Goran Lloyd PCP - General Family Practice 12/29/17 05/21/[address] [address] Annette Alvarez, Nurse Practitioner Clinical Nurse 03/22/17 10/21/20 MECHANICAL STRIPER PVC LOADER Specialist [address] [place] [address] Family Resource Management Professor Dietitian, Registered 05/25/18 [facility] MAGGIE [facility] [place] [place] [address] documented as of this encounter
--- OUTSIDE RECORDS SUMMARY | 2022-01-24 17:29 | XMS_ITS | Encounter Summary ---
:1965 Author Organization [place] Address [facility] [place] [address] Care Team Providers Name Role Phone No Ref-Primary, Physician Primary Care Provider [phone] Encounter Details Date Type Department Care Team Description 02/25/2017 [facility] Only [facility] Typ e 1 diabetes mellitus with complications (H); 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 Marnie, Your kidney test is still elevated but the potassium is now normal. Your A1c is better, decreased from 7.8%. Here's a copy of the results for your records. Annette Alvarez NP Endocrinology GER FARM documented in this encounter Plan of Treatment Upcoming Encounters Date Type Specialty Care Team Description 02/09/2022 Virtual Visit Surgery Mindi Llanes, PRETTY [address] [place] [address] (Wo rk) documented as of this encounter Procedures Procedure Name Priority Date/Time Associated Diagnosis Comme nts HEMOGLOBIN A1C Routine 02/25/2017 12:05 Type 1 diabetes Result s for this PM MANAGER FARM mellitus with procedure are in complications (H ) the results Uncontrolled type 1 section. diabetes mellitus with stage 3 chronic kidney disease (H) Flatulence, eructation, and gas pain BASIC METABOLIC Routine 02/25/2017 12:05 Type 1 diabetes Resul ts for this PANEL PM MANAGER FARM mellitus with procedure are in complications (H ) the results Uncontrolled type 1 section. diabetes mellitus with stage 3 chronic kidney disease (H) Flatulence, eructation, and gas pain PCOS (polycystic ovarian syndrome) documented in this encounter Results (ABNORMAL) Basic metabolic panel FUTURE 1yr (02/25/2017 12:05 PM MANAGER FARM) [facility] Method Time Signature Sodium 138 133 - 144 02/26/2017 [facility] mmol/L 11:18 AM [facility] Potassium 4.9 3.4 - 5.3 02/26/2017 [facility] mmol/L 11:18 AM [facility] Chloride 106 94 - 109 02/26/2017 [facility] mmol/L 11:18 AM [facility] Carbon Dioxide 20 20 - 32 02/26/2017 [facility] mmol/L 11:18 AM [facility] Anion Gap 12 3 - 14 02/26/2017 [facility] mmol/L 11:18 AM [facility] Glucose 157 (H) 70 - 99 02/26/2017 [place] mg/dL 11:18 AM [facility] Urea Nitrogen 25 7 - 30 02/26/2017 [facility] mg/dL 11:18 AM [facility] Creatinine 1.60 (H) 0.52 - 02/26/2017 [facility] 1.04 11:18 AM [facility] mg/dL [facility] GFR Estimate 34 (L) >60 02/26/2017 [facility] mL/min/1. 11:18 AM MANAGER FARM CLINICS 7m2 [facility] Comment: Non GFR Calc GFR Estimate If 41 (L) >60 mL/min/1.7m2 02/26/2017 11:18 AM [facility] Comment: GFR Calc Calcium 8.8 8.5 - 10.1 mg/dL 02/26/2017 11:18 AM [facility] Specimen Anatomical Collection Method Collection Time Receive d Time (Source) Location / / Volume Laterality Blood specimen 02/25/2017 12:05 7 (specimen) PM MANAGER FARM 12:06 PM MANAGER FARM Annette Alvarez APRN, CNP LAB - BLOOD ORDERABLES Performing Organization Address City/State/ZIP Code Phon e Number [facility] [address] [place] [address] (ABNORMAL) Hemoglobin A1c (02/25/2017 12:05 PM MANAGER FARM) P athologist Signature Hemoglobin A1C 7.6 (H) 4.3 - 6.0 02/25/2017 [facility] 12:21 PM [facility] Specimen Anatomical Collection Method Collection Time Receive d Time (Source) Location / / Volume Laterality Blood specimen 02/25/2017 12:05 7 (specimen) PM MANAGER FARM 12:06 PM MANAGER FARM Annette Alvarez APRN, CNP LAB - BLOOD ORDERABLES Performing Organization Address City/State/ZIP Code Phon e Number [facility] [address] [place] [address] documented in this encounter Visit Diagnoses Diagnosis Type 1 diabetes mellitus with complicati ons (H) Uncontrolled type 1 diabetes mellitus wi th stage 3 chronic kidney disease Type I (juvenile type) diabetes mellitus with renal manifestations, uncontrolled Flatulence, eructation, and gas pain PCOS (polycystic ovarian syndrome) Polycystic ovaries documented in this encounter Care Teams Grain Distributor Relationship Specialty Start Date End Date No Ref-Primary, Physician PCP - General 12/25/14 12/28/17 documented as of this encounter
--- OUTSIDE RECORDS SUMMARY | 2022-01-24 17:29 | XMS_ITS | Encounter Summary ---
:1965 Author Organization [place] Address [address] [place] [address]. 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 documented as of this encounter Plan of Treatment Upcoming Encounters Date Type Specialty Care Team Description 02/09/2022 Virtual Visit Surgery Mindi Llanes PA-C [address] [facility] [address] [place] [address] (Wo rk) documented as of this encounter Visit Diagnoses Not on filedocumented in this encounter Care Teams Behavioral Health Case Manager Relationship Specialty Start Date End Date Goran Lloyd PCP - General Family Practice 12/29/17 05/21/20 [facility] [address] [place] [address] Annette Alvarez, Nurse Practitioner Clinical Nurse Specialist 10/21/20 FISHING TOOL OPERATOR JAVA USER INTERFACE DEVELOPER [address] [place] [address] documented as of this encounter
--- OUTSIDE RECORDS SUMMARY | 2022-01-24 17:29 | XMS_ITS | Encounter Summary ---
:1965 Author Organization [place] Address [address] [place] [address]. [place] [address] Care Team Providers Name Role Phone No Ref-Primary, Physician Primary Care Provider [phone] Reason for Visit Reason Onset Date Comments No Show Diabetes Education No Show 12/10/2016 Encounter Details Date Type Department Care Team Description 12/10/2016 [facility] Yadira Garcia No Show; Diabetes Health/Nurse Clinic Emmy Lewis RN Education; No Show Visit [address] [facility] [phone] [place], [place] (Work) [address] Social History Tobacco Use Types Packs/Day Years Used Date Smoking Tobacco: Never Smokeless Tobacco: Never Alcohol Use Standard Drinks/Week Comments Yes 0 (1 standard drink = 0.6 oz pure alcoho l) rare Sex Assigned at Date Recorded Female 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 documented in this encounter Plan of Treatment Upcoming Encounters Date Type Specialty Care Team Description 02/09/2022 Virtual Visit Surgery Mindi Llanes PA-C [address] [place] [address] (Wo rk) documented as of this encounter Visit Diagnoses Diagnosis NO SHOW - Primary documented in this encounter Care Teams Anesthesia Technician Relationship Specialty Start Date End Date No Ref-Primary, Physician PCP - General 12/25/14 12/28/17 documented as of this encounter
--- OUTSIDE RECORDS SUMMARY | 2022-01-24 17:29 | XMS_ITS | Encounter Summary ---
:1965 Author Organization [facility] Address [address] [place] [address]. [place] [address] Care Team Providers Name Role Phone No Ref-Primary, Physician Primary Care Provider [phone] Reason for Referral Patient Education - Closed Specialty Diagnoses / Procedures Referred By Contact Refer red To Contact Diagnoses Uncontrolled type 1 diabetes mellitus with stage 3 chronic kidney disease Lashae Alvarez APRN [facility] [address] 351 [phone] Referral ID Status Reason Start Date Expiration Date Visits Requ ested Visits Authorized [id number] Closed 12/10/2016 12/10/2017 1 1 Reason for Visit Reason Comments Diabetes Encounter Details Date Type Department Care Team Description 11/25/2016 Office Visit [facility] Lashae Alvarez ed type 1 diabetes mellitus with stage 3 chronic kidney disease (H) (Primary Dx); Clinic [place] KIM Monroe CNP PCOS (polycystic ovarian syndrome) [address] [place] [phone] [phone] Social History Tobacco Use Types Packs/Day Years Used Date Smoking Tobacco: Never Smokeless Tobacco: Never Alcohol Use Standard Drinks/Week Comments Yes 0 (1 standard drink = 0.6 oz pure alcoho l) rare Sex Assigned at Date Recorded Female 03/04/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 Schedule an appointment with Yadira Garcia, web assistant for prepump education. 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 History of right nephrectomy 12 years ago - was having severe pain prior to surgery, thinks due topolycystic kidney disease Lives in [place] Complications: Diabetes Complications Description / Detail Diabetic [...] Follow-up: 1 month Lashae Alvarez NP Endocrinology [facility] CC: documented in this encounter Nursing [...] PA-C [address] [place] [address] (Wo rk) documented as of this encounter [...] Basic metabolic panel (11/25/2016 2:33 PM CDT) [facility] Method Time Signature Sodium 139 133 - 144 11/26/2016 [facility] mmol/L 3:30 PM CDT [facility] Potassium 4.4 3.4 - 5.3 11/26/2016 [facility] mmol/L 3:30 PM CDT [facility] Chloride 106 94 - 109 11/26/2016 [facility] mmol/L 3:30 PM CDT [facility] Carbon Dioxide 24 20 - 32 11/26/2016 [facility] mmol/L 3:30 PM CDT [facility] Anion Gap 9 3 - 14 11/26/2016 [facility] mmol/L 3:30 PM CDT [facility] Glucose 117 (H) 70 - 99 11/26/2016 [facility] mg/dL 3:30 PM CDT [facility] Urea Nitrogen 30 7 - 30 11/26/2016 [facility] mg/dL 3:30 PM CDT [facility] Creatinine 2.10 (H) 0.52 - 11/26/2016 [facility] 1.04 3:30 PM CDT CLINICS mg/dL [facility] GFR Estimate 25 (L) >60 11/26/2016 [facility] mL/min/1. 3:30 PM CDT [facility]INICS 7m2 [facility] Comment: Non GFR Calc GFR Estimate If 30 (L) >60 mL/min/1.7m2 11/26/2016 3:30 P M [facility] Black T [facility] Comment: GFR Calc Calcium 8.9 8.5 - 10.1 mg/dL 11/26/2016 3:30 PM CDT [facility] Specimen Anatomical Collection Method Collection Time Receive d Time (Source) Location / / Volume Laterality Blood specimen 11/25/2016 2:33 PM 017 3:16 (specimen) CDT PM CDT Lashae Alvarez APRN, CNP LAB - BLOOD ORDERABLES Performing Organization Address City/State/ZIP Code Phon e Number [facility] [address] [place] [address] Albumin Random Urine Quantitative with Creat Ratio (11/25/2016 2:33 PM CDT) Patholo gist Method Time Signature Creatinine 26 mg/dL 11/25/2016 [place] Urine 5:45 PM CDT [facility] Albumin Urine <5 mg/L 11/25/2016 [facility] mg/L 5:49 PM CDT [facility] Albumin Urine Unable to 0 - 25 11/25/2016 [facility] mg/g Cr calculate due mg/g Cr 5:49 PM CDT [facility] Specimen Anatomical Collection Method Collection Time Receive d Time (Source) Location / / Volume Laterality Urine specimen 11/25/2016 2:33 PM 017 2:34 (specimen) CDT PM CDT Lashae Alvarez APRN RESIDENCY PROGRAM COORDINATOR LAB - URINE ORDERABLES Performing Organization Address City/[facility]/ZIP Code Phon e Number [facility] [address] [place] [address] [facility] [address] [place] [address], [facility] [phone] (ABNORMAL) Hemoglobin A1c (11/25/2016 2:33 PM CDT) P athologist Signature Hemoglobin A1C 7.8 (H) 4.3 - 6.0 11/25/2016 [facility] % 2:57 PM CDT [facility] Comment: Results confirmed by repeat gail t Specimen Anatomical Collection Method Collection Time Receive d Time (Source) Location / / Volume Laterality Blood specimen 11/25/2016 2:33 PM 017 2:34 (specimen) CDT PM CDT Lashae Alvarez APRN, CNP LAB - BLOOD ORDERABLES Performing Organization Address City/State/ZIP Code Phon e Number [facility] [address] [place] [address] documented in this encounter Visit Diagnoses Diagnosis Uncontrolled type 1 diabetes mellitus wi th stage 3 chronic kidney disease - Primary Type I (juvenile type) diabetes mellitus with renal manifestations, uncontrolled PCOS (polycystic ovarian syndrome) Polycystic ovaries documented in this encounter Care Teams Power Plant Operator Apprentice Relationship Specialty Start Date End Date No Ref-Primary, Physician PCP - General 12/25/14 12/28/17 documented as of this encounter
--- OUTSIDE RECORDS SUMMARY | 2022-01-24 17:29 | XMS_ITS | Encounter Summary ---
:1965 Author Organization [facility] Address [address] [place] [address]. [place] [address] Care Team Providers Name Role Phone Annette Alvarez APRN, CNP Unavailable [phone] Goran Lloyd Primary Care Provider Reason for Referral Patient Education - Closed Specialty Diagnoses / Procedures Referred By Contact Refer red To Contact Diagnoses Type 1 diabetes mellitus with complications (H) Annette Alvarez [facility] KIM [employer] S[employer] [facility] [address] [phone] Referral ID Status Reason Start Date Expiration Date Visits Requ ested Visits Authorized [id number] Closed 12/29/2017 12/29/2018 1 1 Reason for Visit Reason Comments Diabetes Flu Shot Encounter Details Date Type Department Care Team Description 12/29/2017 Office Visit [facility] Annette Nuñez Type 1 rohan garcia mellitus with complications (H) (Primary Dx); [facility] [place] CNP Need for prophylactic vaccination and in oculation against influenza; [id number] Uncontrolled type 1 diabetes mellitus wi th stage 3 chronic kidney disease (H); [place], [place] PCOS (p olycystic ovarian syndrome); [id number] 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 [phone] Social History Tobacco Use Types Packs/Day Years Used Date Smoking Tobacco: Never Smokeless Tobacco: Never Alcohol Use Standard Drinks/Week Comments Yes 0 (1 standard drink = 0.6 oz pure alcoho l) rare Sex Assigned at Date Recorded Female 03/04/2020 12:33 PM 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 Prevention: Flu Shot- Pneumovax- recommended Opthalmology-yes [...] RECOMBINANT VÁSQUEZ , IM (FluBlok, egg free) [78256]- >18 YRS (FMG [id number] YRS) ??? Vaccine Administration, Initial [76331] ??? Albumin Random Urine Quantitative with Creat Ratio ??? COURIER DELIVERY DRIVER REFERRAL Radiology/Consults ordered today: All questions were answered. The patient indicates understanding of the above issues and agrees withthe plan set forth. Total face to face time greater than or equal to 25 minutes. Follow-up: 3 month Annette Alvarez NP Endocrinology [facility] CC: documented in this encounter Plan of Treatment Upcoming Encounters Date Type Specialty Care Team Description 02/09/2022 Virtual Visit Surgery Mindi Llanes PA-C [address] [place] [address] (Wo rk) documented as of this encounter Procedures Procedure Name Priority Date/Time Associated Diagnosis Comme nts ALBUMIN RANDOM URINE Routine 12/29/2017 5:43 Type 1 diabetes R esults for this QUANTITATIVE PM CDT mellitus with procedure are in complications (H) the result s section. documented in this encounter Results Albumin Random Urine Quantitative with Creat Ratio (12/29/2017 5:43 PM CDT) [facility] Method Time Signature Creatinine 56 mg/dL 12/30/2017 [place] Urine 4:37 PM CDT [facility] Albumin Urine <5 mg/L 12/30/2017 [place] mg/L 4:37 PM CDT [facility] Albumin Urine Unable to 0 - 25 12/30/2017 [place] mg/g Cr calculate due mg/g Cr 4:37 PM CDT CLINICS to low value [facility] Specimen Anatomical Collection Method Collection Time Receive d Time (Source) Location / / Volume Laterality Urine specimen 12/29/2017 5:43 PM 018 5:44 (specimen) CDT PM CDT Annette Alvarez MACHINE PULLER OVER HIGH SCHOOL COACH LAB - URINE ORDERABLES Performing Organization Address City/State/ZIP Code Phon e Number [facility] [address] [place] [address] documented in this encounter Visit Diagnoses Diagnosis [...] thyroid documented in this encounter Care Teams Ice Cream Freezer Assistant Relationship Specialty Start Date End Date Goran Lloyd PCP - General Family Practice 12/29/17 05/21/20 [facility] [address] [place] [address] Annette Alvarez, Nurse Practitioner Clinical Nurse Specialist 10/21/20 MACHINE PULLER OVER HIGH SCHOOL COACH [id number] [place] [address] documented as of this encounter
--- OUTSIDE RECORDS SUMMARY | 2022-01-24 17:29 | XMS_ITS | Encounter Summary ---
:1965 Author Organization [facility] Address [address] [facility] [place] [address] Care Team Providers Name Role Phone No Ref-Primary, Physician Primary Care Provider [phone] Annette Alvarez APRN MEDIA RELATIONS MANAGER Unavailable Reason for Visit Reason Onset Date Comments Results 03/22/2017 lab results and lega l questions Encounter Details Date Type Department Care Team Description 03/22/2017 Telephone [facility] No Ref-Primary, Results (lab results and Clinic [place] Physician legal questions) [id number] [facility] [phone] [place], [place] (Fax) [phone] Social History Tobacco Use Types Packs/Day Years Used Date Smoking Tobacco: Never Smokeless Tobacco: Never Alcohol Use Standard Drinks/Week Comments Yes 0 (1 standard drink = 0.6 oz pure alcoho l) rare Sex Assigned at Date Recorded Female 03/04/2020 12:33 PM 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 She will call back to make an appt. Karley Kessler CMA STERED NURSE MIDWIFE Telephone Encounter - Yina Moss MD - 03/23/2017 10:51 AM REGISTERED NURSE MIDWIFE Can f/u in 2-4 weeks with Annette. STERED NURSE MIDWIFE Telephone Encounter - Karley Kessler CMA - 03/22/2017 11:38 AM REGISTERED NURSE MIDWIFE TRAINING AND DOCUMENTATION SPECIALIST, please advise in LS's absence. Karley Kessler CMA STERED NURSE MIDWIFE Telephone Encounter - Jasmyn Lee RN - [...] this. I did advise her to contacta interlibrary loan services librarian about this as I do not have a legal background or the answers to her questions regarding a legal commitment. Advised her it is not a simple process, its a legal process and she does have rights as an individual. She will contact a interlibrary loan services librarian regarding her concerns. Jasmyn Lee RN -- [facility] Work[facility] STERED NURSE MIDWIFE documented in this encounter Plan of Treatment Upcoming Encounters Date Type Specialty Care Team Description 02/09/2022 Virtual Visit Surgery Mindi Llanes PA-C [address] [place] [id number] (Wo rk) documented as of this encounter Visit Diagnoses Not on filedocumented in this encounter Care Teams Residential Treatment Counselor Relationship Specialty Start Date End Date No Ref-Primary, PCP - General 12/25/14 12/28/17 Physician Annette Alvarez, Nurse Practitioner Clinical Nurse Specialist 10/21/20 POWER SYSTEMS ENGINEER MEDIA RELATIONS MANAGER [address] [place] [address] documented as of this encounter
--- OUTSIDE RECORDS SUMMARY | 2022-01-24 17:29 | XMS_ITS | Encounter Summary ---
:1965 Author Organization [facility] Address [address] [place] [address]. [place] [address] Care Team Providers Name Role Phone Annette Alvarezmamadou ALVAREZ CT SCAN SPECIAL PROCEDURES TECHNOLOGIST Unavailable [phone] Goran Lloyd Primary Care Provider Reason for Visit Reason Onset Date Comments Nurse Advice Line 01/31/2018 labs Encounter Details Date Type Department Care Team Description 01/31/2018 Telephone [facility] Annette Alvarez Nurse Advi ce Line Clinic [place] KIM [address] CT SCAN SPECIAL PROCEDURES TECHNOLOGIST (labs) [address] [place] [address] [phone] Social History Tobacco Use Types Packs/Day Years Used Date Smoking Tobacco: Never Smokeless Tobacco: Never Alcohol Use Standard Drinks/Week Comments Yes 0 (1 standard drink = 0.6 oz pure alcoho l) rare Sex Assigned at Date Recorded Female 03/04/2020 12:33 PM EPIC RADIANT ANALYST documented as of this encounter Miscellaneous Notes Telephone Encounter - Quita Castillo RN - 01/31/2018 5:30 PM EPIC RADIANT ANALYST Clinic Action Needed: No FNA Triage Call Presenting Problem: Marnie returned phone call from VASQUEZ Orozco. Provided note to Marnie per [facility]. Marnie verbalized understanding and had no additional questions at this time. Routed to: superintendent circus Quita Castillo RN/FNA RADIANT ANALYST Telephone Encounter - Pam Boudreaux RN - 01/31/2018 8:49 AM CST Notes Recorded by Annette Alvarez, KIM CT SCAN SPECIAL PROCEDURES TECHNOLOGIST on 01/30/2018 at 6:07 PM Please call [...] know if you have any questions. Annette Alvarez, JIMMY Endocrinology LM to CB Pam Boudreaux RN, BS Clinical Nurse Triage. RADIANT ANALYST documented in this encounter Plan of Treatment Upcoming Encounters Date Type Specialty Care Team Description 02/09/2022 Virtual Visit Surgery Mindi Llanes PA-C [address] [facility] [address] [place] [address] (Wo rk) documented as of this encounter Visit Diagnoses Not on filedocumented in this encounter Care Teams Lumber Loader Relationship Specialty Start Date End Date Goran Lloyd PCP - General Family Practice 12/29/17 05/21/20 [facility] [address] [place] [address] Annette Alvarez, Nurse Practitioner Clinical Nurse Specialist 10/21/[address] SCAN SPECIAL PROCEDURES TECHNOLOGIST [address] [place] [address] documented as of this encounter
--- OUTSIDE RECORDS SUMMARY | 2022-01-24 17:29 | XMS_ITS | Encounter Summary ---
:1965 Author Organization [facility] Address [address] [place] [address]. [place] [address] Care Team Providers Name Role Phone Annette Alvarez APRN SHELLFISH DREDGE OPERATOR Unavailable [phone] Goran Lloyd Primary Care Provider Reason for Visit Reason Comments Medication Refill NOVOLOG FLEXPEN 100 UNIT/ML soln Encounter Details Date Type Department Care Team Description 05/10/[address] [facility] Annette Alvarez, Medication Refill [place] GLASS CLEANING MACHINE TENDER SHELLFISH DREDGE OPERATOR (NOVOLOG FLEXPEN 100 [address] [facility] [id number] [place] [address] AV UNIT/ML soln) [place] [address] [phone] (Wo rk) Social History Tobacco Use Types Packs/Day Years Used Date Smoking Tobacco: Never Smokeless Tobacco: Never Alcohol Use Standard Drinks/Week Comments Yes 0 (1 standard drink = 0.6 oz pure alcoho l) rare Sex Assigned at Date Recorded Female 03/04/2020 12:33 PM EARLY HEAD START TEACHER documented as of this encounter Miscellaneous Notes Telephone Encounter - Maye Souza RN - 05/12/2018 2:10 PM CST [facility] calling. Need to add max total daily dose. .kf Y HEAD START TEACHER Telephone Encounter - Annette Alvarez APRN CNP - 05/12/2018 1:46 PM EARLY HEAD START TEACHER Please call and have her schedule a follow up visit. Annette Alvarez NP Endocrinology Y HEAD START TEACHER Telephone Encounter - Maye Souza RN - 05/12/2018 9:37 AM CST Images from the original note were not included. Failing below. No upcoming appt. No showed 04/19/18 appt, cancelled 03/30/18 appt. Frequently no shows or cancels. No show rate is 56%. Sent to provider. Please advise and route back to M[facility]. Maye Souza RN Short Acting Insulin Protocol Failed05/11 5:14 PM LDL on file in past 12 months HgbA1C in past 3 or 6 months Y HEAD START TEACHER Telephone Encounter - GambleLeslie - 05/11/2018 5:13 [...] & Orders section of the refill encounter. Y HEAD START TEACHER documented in this encounter Plan of Treatment Upcoming Encounters Date Type Specialty Care Team Description 02/09/2022 Virtual Visit Surgery Mindi Llanes PA-C [address] [facility] [address] [place] [address] (Wo rk) documented as of this encounter Visit Diagnoses Diagnosis Type 1 diabetes mellitus with complicati ons (H) Uncontrolled type 1 diabetes mellitus wi th stage 3 chronic kidney disease Type I (juvenile type) diabetes mellitus with renal manifestations, uncontrolled PCOS (polycystic ovarian syndrome) Polycystic ovaries documented in this encounter Care Teams Water Pipe Installer Relationship Specialty Start Date End Date Goran Lloyd PCP - General Family Practice 12/29/17 05/21/20 [facility] [address] [place] [address] Annette Alvarez, Nurse Practitioner Clinical Nurse Specialist 10/21/20 GLASS CLEANING MACHINE TENDER SHELLFISH DREDGE OPERATOR [address] [place] [address] documented as of this encounter
--- OUTSIDE RECORDS SUMMARY | 2022-01-24 17:29 | XMS_ITS | Encounter Summary ---
:1965 Author Organization [place] Address [address] [place] [address]. 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 documented as of this encounter Plan of Treatment Upcoming Encounters Date Type Specialty Care Team Description 02/09/2022 Virtual Visit Surgery Mindi Llanes PA-C [address] [facility] [address] [place] [address] (Wo rk) documented as of this encounter Visit Diagnoses Not on filedocumented in this encounter Care Teams Blow Pit Helper Relationship Specialty Start Date End Date Goran Lloyd PCP - General Family Practice 12/29/17 05/21/20 [facility] [address] [place] [address] Annette Alvarez, Nurse Practitioner Clinical Nurse 03/22/17 10/21/20 LEAK INSPECTOR ASSOCIATE DENTIST Specialist [address] [place] [address] Carpenter/Labor Dietitian, Registered 05/25/18 [facility] [place] [address] [place] [address] documented as of this encounter
--- OUTSIDE RECORDS SUMMARY | 2022-01-24 17:29 | XMS_ITS | Encounter Summary ---
:1965 Author Organization [place] Address [address] [place] [address]. [place] [address] Care Team Providers Name Role Phone No Ref-Primary, Physician Primary Care Provider Annette Alvarez MANAGER QUANTITATIVE COMMERCIAL GLAZIER Unavailable Reason for Visit Reason Onset Date Comments Refill Request 08/31/2017 naltrexone-bupropion (CONTRAVE) 8-90 MG per 12 hr tablet Encounter Details Date Type Department Care Team Description 08/31/2017 Refill [facility] Annette Alvarez, Refill Request [place] MANAGER QUANTITATIVE COMMERCIAL GLAZIER (naltrexone-bupropion [address] [address] 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 Jasmyn Lee, RN -- [facility] Telephone Encounter - Lisandro Lena - 09/05/2017 [...] Llanes PA-C [address] [facility] [address] [place] [address] (Wo rk) documented as of this encounter Visit Diagnoses Diagnosis Morbid obesity (H) Morbid obesity documented in this encounter Care Teams Sewing Machine Mechanic Relationship Specialty Start Date End Date No Ref-Primary, PCP - General 12/25/14 12/28/17 Physician Annette Alvarez, Nurse Practitioner Clinical Nurse Specialist 10/21/20 MANAGER QUANTITATIVE COMMERCIAL GLAZIER [address] [place] [address] documented as of this encounter
--- OUTSIDE RECORDS SUMMARY | 2022-01-24 17:29 | XMS_ITS | Encounter Summary ---
:1965 Author Organization [place] Address [facility] [place] [address] Care Team Providers Name Role Phone No Ref-Primary, Physician Primary Care Provider [phone] Reason for Visit Reason Comments Diabetes Encounter Details Date Type Department Care Team Description 02/04/2017 Office Visit [facility] Lashae Alvarez Type 1 rohan betes mellitus with complications (H) (Primary Dx); Clinic [place] KIM Monroe CATALYST MANUFACTURING OPERATOR Uncontrolled type 1 diabetes mellitus wi th stage 3 chronic kidney disease (H); [id number] [place] [address] Flatulence, eructation, and gas pain; [place], [place] PCOS (p olycystic ovarian syndrome) [phone] Social History Tobacco Use Types Packs/Day Years Used Date Smoking Tobacco: Never Smokeless Tobacco: Never Alcohol Use Standard Drinks/Week Comments Yes 0 (1 standard drink = 0.6 oz pure alcoho l) rare Sex Assigned at Date Recorded Female 03/04/2020 12:33 PM CHANGE NUMBER OPERATOR documented as of this encounter Last Filed Vital Signs Vital Sign Reading Time Taken Comments Blood Pressure 164/64 02/04/2017 9:19 AM CHANGE NUMBER OPERATOR Pulse 76 02/04/2017 9:19 AM CHANGE NUMBER OPERATOR Temperature 36.8 ??C (98.2 ??F) 02/04/2017 9:19 AM CHANGE NUMBER OPERATOR Respiratory Rate 16 02/04/2017 9:19 AM CHANGE NUMBER OPERATOR Oxygen Saturation - - Inhaled Oxygen Concentration - - Weight 112.7 kg (248 lb 6.4 oz) 02/04/2017 9:19 AM CHANGE NUMBER OPERATOR Height - - Body Mass Index 34.16 12/25/2014 9:45 PM CDT documented in this encounter Patient Instructions Patient InstructionsLashae Alvarez APRN CNP - 02/04/2017 9:00 AM CHANGE NUMBER OPERATOR We'll recheck creatinine today. If creatinine is [...] months after that. Lashae Alvarez NP Endocrinology GE NUMBER OPERATOR documented in this encounter Progress Notes Lashae [...] results when available. 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 Medication Reconciliation: complete GE NUMBER OPERATOR documented in this encounter Miscellaneous Notes Addendum Note - Lashae Alvarez APRN CATALYST MANUFACTURING OPERATOR - 02/13/2017 9:57 PM CHANGE NUMBER OPERATOR Addended by: LASHAE ALVAREZ on: 02/13/2017 09:57 PM Modules accepted: Orders GE NUMBER OPERATOR documented in this encounter Plan of Treatment Upcoming Encounters Date Type Specialty Care Team Description 02/09/2022 Virtual Visit Surgery Mindi Llanes [facility]-C [address] [facility] [address] [place], [place] [address] (Wo rk) documented as of this encounter Procedures Procedure Name Priority Date/Time Associated Diagnosis Comme nts BASIC METABOLIC Routine 02/04/2017 10:30 Type 1 diabetes Resul ts for this PANEL AM CHANGE NUMBER OPERATOR mellitus with procedure are in complications (H ) the results Uncontrolled type 1 section. diabetes mellitus with stage 3 chronic kidney disease (H) Flatulence, eructation, and gas pain documented in this encounter Results (ABNORMAL) Basic metabolic panel FUTURE 1yr (02/25/2017 12:05 PM CHANGE NUMBER OPERATOR) [facility] Method Time Signature Sodium 138 133 - 144 02/26/2017 [facility] mmol/L 11:18 AM CHANGE NUMBER OPERATOR [facility] Potassium 4.9 3.4 - 5.3 02/26/2017 [facility] mmol/L 11:18 AM [facility] Chloride 106 94 - 109 02/26/2017 [facility] mmol/L 11:18 AM [facility] Carbon Dioxide 20 20 - 32 02/26/2017 [facility] mmol/L 11:18 AM [facility] Anion Gap 12 3 - 14 02/26/2017 [facility] mmol/L 11:18 AM [facility] Glucose 157 (H) 70 - 99 02/26/2017 [facility] mg/dL 11:18 AM [facility] Urea Nitrogen 25 7 - 30 02/26/2017 [facility] mg/dL 11:18 AM [facility] Creatinine 1.60 (H) 0.52 - 02/26/2017 [facility] 1.04 11:18 AM [facility] mg/dL [facility] GFR Estimate 34 (L) >60 02/26/2017 [facility] mL/min/1. 11:18 AM CHANGE NUMBER OPERATOR CLINICS 7m2 [facility] Comment: Non GFR Calc GFR Estimate If 41 (L) >60 mL/min/1.7m2 02/26/2017 11:[address] [facility] Black [facility] Comment: GFR Calc Calcium 8.8 8.5 - 10.1 mg/dL 02/26/2017 11:18 AM [facility] Specimen Anatomical Collection Method Collection Time Receive d Time (Source) Location / / Volume Laterality Blood specimen 02/25/2017 12:05 7 (specimen) PM CHANGE NUMBER OPERATOR 12:06 PM CHANGE NUMBER OPERATOR Lashae Alvarez APRN CATALYST MANUFACTURING OPERATOR LAB - BLOOD ORDERABLES Performing Organization Address City/State/ZIP Code Phon e Number [facility] [address] [place] [address] (ABNORMAL) Hemoglobin A1c (02/25/2017 12:05 PM CHANGE NUMBER OPERATOR) P athologist Signature Hemoglobin A1C 7.6 (H) 4.3 - 6.0 02/25/2017 [place] % 12:21 PM [facility] Specimen Anatomical Collection Method Collection Time Receive d Time (Source) Location / / Volume Laterality Blood specimen 02/25/2017 12:05 7 (specimen) PM CHANGE NUMBER OPERATOR 12:06 PM CHANGE NUMBER OPERATOR Lashae Alvarez APRN, CNP LAB - BLOOD ORDERABLES Performing Organization Address City/State/ZIP Code Phon e Number [facility] [address] [place] [address] (ABNORMAL) Basic metabolic panel (02/04/2017 10:30 AM CHANGE NUMBER OPERATOR) Analysis Performed At Patho logist Time Signature Sodium 140 133 - 144 02/05/2017 [place] mmol/L 1:47 PM [facility] Potassium 5.6 (H) 3.4 - 5.3 02/05/2017 [facility] mmol/L 1:47 PM [facility] Chloride 106 94 - 109 02/05/2017 [facility] mmol/L 1:47 PM [facility] Carbon Dioxide 25 20 - 32 02/05/2017 [facility] mmol/L 1:47 PM [facility] Anion Gap 9 3 - 14 02/05/2017 [facility] mmol/L 1:47 PM [facility] Glucose 134 (H) 70 - 99 02/05/2017 [facility] mg/dL 1:47 PM [facility] Comment: Non Fasting Urea Nitrogen 16 7 - 30 mg/dL 02/05/2017 1:47 PM [facility] Creatinine 1.40 (H) 0.52 - 1.04 02/05/2017 1:[address] [facility] mg/dL [facility] GFR Estimate 40 (L) >60 mL/min/1.7m2 02/05/2017 1:47 PM F [facility] Comment: Non GFR Calc GFR Estimate If 48 (L) >60 mL/min/1.7m2 02/05/2017 1:[address] [facility] Black [facility] Comment: GFR Calc Calcium 9.3 8.5 - 10.1 mg/dL 02/05/2017 1:47 PM [facility] Specimen Anatomical Collection Method Collection Time Receive d Time (Source) Location / / Volume Laterality Blood specimen 02/04/2017 10:30 7 (specimen) AM CHANGE NUMBER OPERATOR 10:31 AM CHANGE NUMBER OPERATOR Lashae Alvarez APRN CATALYST MANUFACTURING OPERATOR LAB - BLOOD ORDERABLES Performing Organization Address City/State/ZIP Code Phon e Number [facility] [address] [place] [address] documented in this encounter Visit Diagnoses Diagnosis Type 1 diabetes mellitus with complicati ons (H) - Primary Uncontrolled type 1 diabetes mellitus wi th stage 3 chronic kidney disease Type I (juvenile type) diabetes mellitus with renal manifestations, uncontrolled Flatulence, eructation, and gas pain PCOS (polycystic ovarian syndrome) Polycystic ovaries documented in this encounter Care Teams Road Roller Engineer Relationship Specialty Start Date End Date No Ref-Primary, Physician PCP - General 12/25/14 12/28/17 documented as of this encounter
--- OUTSIDE RECORDS SUMMARY | 2022-01-24 17:29 | XMS_ITS | Encounter Summary ---
:1965 Author Organization [place] Address [address] [place] [address]. [place] [address] Care Team Providers Name Role Phone No Ref-Primary, Physician Primary Care Provider [phone] Annette Alvarez PYROGLAZER GEOPHYSICAL DATA TECHNICIAN Unavailable [phone] Reason for Visit Reason Onset Date Comments Refill Request 11/09/2017 levothyroxine (SYNTH ROID/LEVOTHROID) 175 MCG tablet Refill Request 11/09/2017 pregabalin (LYRICA) 75 MG capsule Encounter Details Date Type Department Care Team Description 11/09/2017 Refill [facility] Annette Alvarez, Refill Request [place] PYROGLAZER GEOPHYSICAL DATA TECHNICIAN (levothyroxine [address] 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 documented as of this encounter Miscellaneous Notes [...] CDT [facility] [address] [phone] 84 tablet 1 Sig: Take one tablet [...] CDT Return Visit with Yina [facility] [address] [place] [address] [facility] [phone] 180 capsule 1 Sig: Take 1 capsule (75 mg) by mouth 2 times daily There is no refill protocol information for this order documented in this encounter Plan of Treatment Upcoming Encounters Date Type Specialty Care Team Description 02/09/2022 Virtual Visit Surgery Mindi Llanes PA-C [address] [place] [address] (Wo rk) documented as of this encounter Visit Diagnoses Diagnosis 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
--- OUTSIDE RECORDS SUMMARY | 2022-01-24 17:29 | XMS_ITS | Encounter Summary ---
:1965 Author Organization [place] Address [facility] [place] [address] Care Team Providers Name Role Phone No Ref-Primary, Physician Primary Care Provider [phone] Annette Alvarez APRN CASH MANAGEMENT OFFICER Unavailable [phone] Reason for Visit Reason Onset Date Comments Appointment 10/19/2017 Encounter Details Date Type Department Care Team Description 10/19/2017 Telephone [facility] Milady Moss, Appointment Shahana MERCADO [address] [facility] [address] [facility] [address] [place] [address] [place] [address] (Wo rk) Social History Tobacco Use Types Packs/Day Years Used Date Smoking Tobacco: Never Smokeless Tobacco: Never Alcohol Use Standard Drinks/Week Comments Yes 0 (1 standard drink = 0.6 oz pure alcoho l) rare Sex Assigned at Date Recorded Female 03/04/2020 12:33 PM 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 She missed her appointment today and wanted to reschedule at the [place] location.I have scheduled patient as return with [...] be reached at: Home number on file [phone] (home) Best Time: Anytime. Can we leave a detailed message on this number? YES Call taken on 10/19/2017 at 7:27 PM by Bear documented in this encounter Plan of Treatment Upcoming Encounters Date Type Specialty Care Team Description 02/09/2022 Virtual Visit Surgery Mindi Llanes PA-C [address] [facility] [address] [place] [address] (Wo rk) documented as of this encounter Visit Diagnoses Not on filedocumented in this encounter Care Teams Director Cardiac Relationship Specialty Start Date End Date No Ref-Primary, PCP - General 12/25/14 12/28/17 Physician Antonio Annette Mabel, Nurse Practitioner Clinical Nurse Specialist 10/21/20 RN CLINICAL RESEARCH CASH MANAGEMENT OFFICER [address] [place] [address] documented as of this encounter
--- OUTSIDE RECORDS SUMMARY | 2022-01-24 17:29 | XMS_ITS | Encounter Summary ---
:1965 Author Organization [place] Address [address] [facility] [place] [address] Care Team Providers Name Role Phone Annette Alvarez APRN CONSTRUCTION SKILLS TEACHER Unavailable Goran Lloyd Primary Care Provider Jocelyn Davidson RD Unavailable Reason for Visit Reason Comments Diabetes Education Encounter Details Date Type Department Care Team Description 05/25/2018 [facility] Jocelyn Davidson, Diabet es Education Health/Nurse [place] Visit [address] [place] [address] [place] [address] [place], [place] [id number] Social History Tobacco Use Types Packs/Day Years Used Date Smoking Tobacco: Never Smokeless Tobacco: Never Alcohol Use Standard Drinks/Week Comments Yes 0 (1 standard drink = 0.6 oz pure alcoho l) rare Sex Assigned at Date Recorded Female 03/04/2020 12:33 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 Diabetes Self-Management Education & Support SUBJECTIVE/OBJECTIVE Diabetes education in the past 24mo: Yes Diabetes type: Type 1 Disease course: Getting harder to manage Diabetes management related comments/concerns: getting my A1C to a normal level Cultural Influences/Ethnic Background: [place] Patient seen today for Insulin Pump Pre-Start: [...] prior to insulin pump start. Healthy Eating Cultural/mandaeism diet restrictions?: No Meal planning: Carbohydrate counting [...] IQ pump. Jocelyn Davidson RD, CDE Diabetes Form Stripper Time Spent: 60 minutes Encounter Type: Individual Any diabetes medication dose changes were made via the CDE Protocol and Collaborative Practice Agreement with the patient's endocrinology provider. A copy of this encounter was shared with the provider. ETING DEVELOPER documented in this encounter Plan of Treatment Upcoming Encounters Date Type Specialty Care Team Description 02/09/2022 Virtual Visit Surgery Mindi Llanes PA-C [address] [place] [address] (Wo rk) documented as of this encounter Visit Diagnoses Diagnosis Type 1 diabetes mellitus with complicati ons (H) - Primary documented in this encounter Care Teams Guide Visitor Relationship Specialty Start Date End Date PremaGoran PCP - General Family Practice 12/29/17 05/21/[address] [address] Annette Alvarez, Nurse Practitioner Clinical Nurse 03/22/17 10/21/20 GEAR CHANGER CONSTRUCTION SKILLS TEACHER Specialist [address] [place], [place] [phone] Jocelyn Davidson RD Ribbon Weaver Dietitian, Registered 05/25/18 JET SERRANO [facility] [place] [address] [address] documented as of this encounter
--- OUTSIDE RECORDS SUMMARY | 2022-01-24 17:29 | XMS_ITS | Encounter Summary ---
:1965 Author Organization [place] Address [address] [facility] [place] [address] Care Team Providers Name Role Phone No Ref-Primary, Physician Primary Care Provider [phone] Annette Alvarez APRN SPECIALIST MANAGERS Unavailable [phone] Reason for Visit Reason Onset Date Comments Diabetes No Show 12/22/2017 Encounter Details Date Type Department Care Team Description 12/22/2017 Office Visit [facility] GERALDO Moss SHOW (P rimary Dx) Clinic [place] MD Yina [address] [facility] [address] [address] [place] [address] [phone] Social History Tobacco Use Types Packs/Day Years Used Date Smoking Tobacco: Never Smokeless Tobacco: Never Alcohol Use Standard Drinks/Week Comments Yes 0 (1 standard drink = 0.6 oz pure alcoho l) rare Sex Assigned at Date Recorded Female 03/04/2020 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 documented in this encounter Plan of Treatment Upcoming Encounters Date Type Specialty Care Team Description 02/09/2022 Virtual Visit Surgery Mindi Llanes PA-C [address] [facility] [address] [place] [address] (Wo rk) documented as of this encounter Visit Diagnoses Diagnosis NO SHOW - Primary documented in this encounter Care Teams Seafood Harvester Relationship Specialty Start Date End Date No Ref-Primary, PCP - General 12/25/14 12/28/17 Physician Annette Alvarez, Nurse Practitioner Clinical Nurse Specialist 10/21/20 MOLD SPRAYER SPECIALIST MANAGERS [address] [place], [place] [phone] documented as of this encounter
--- OUTSIDE RECORDS SUMMARY | 2022-01-24 17:29 | XMS_ITS | Encounter Summary ---
:1965 Author Organization [place] Address [address] [place] [address]. [place] [address] Care Team Providers Name Role Phone No Ref-Primary, Physician Primary Care Provider [phone] Reason for Visit Reason Comments Abdominal Pain fell in shower 2 nights ago, not sure if related to her abdominal pain or not. 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 Follow up with PIN DRAFTER OPERATOR in 2 days for reevaluation, contact info provided. Discuss repeat ultrasound to monitor cyst size with PIN DRAFTER OPERATOR. Return to the ED for worsening symptoms, [...] contain Tylenol?? (acetaminophen), including Vicodin??, Tylenol #3??, [place]??, Lortab??, and Percocet??. You should not take [...] She felt better after receiving dilaudid. 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 Review of Systems Constitutional: Negative for fever [...] sleep apnea. Recommended patient follow up with PIN DRAFTER OPERATOR in two days for reevaluation and to [...] break through pain - Follow up with PIN DRAFTER OPERATOR in 2 days for reevaluation Discharge Medications: [...] PA-C [address] [place] [address] (Wo rk) documented as of this encounter [...] Signature INR 1.60 (H) 0.86 - 1.14 [facility] Specimen Anatomical Collection Method Collection Time Receive d Time (Source) Location / / Volume Laterality 12/25/2014 10:48 12/25/2014 PM CDT 10:58 PM CDT Constance Wolff PA-C LAB - BLOOD ORDERABLES Performing Organization Address City/State/ZIP Code Phon e Number M [facility] [address] [place] [address] [place] [id number] [place] [address], [facility] [phone] Lactic acid (12/25/2014 10:48 PM CDT) P athologist Signature Lactic Acid 1.3 0.7 - 2.1 [place] mmol/L [facility] Specimen Anatomical Collection Method Collection Time Receive d Time (Source) Location / / Volume Laterality Blood specimen 12/25/2014 10:48 5 (specimen) PM CDT 10:57 PM CDT Constance Wolff PA-C LAB - BLOOD ORDERABLES Performing Organization Address City/State/ZIP Code Phon e Number M [facility] [address] [place] [address] [phone] [facility] [address] [place] [address], [place] [phone] Lipase (12/25/2014 10:48 PM CDT) P athologist Signature Lipase 165 73 - 393 [place] U/L [facility] Specimen Anatomical Collection Method Collection Time Receive d Time (Source) Location / / Volume Laterality Blood specimen 12/25/2014 10:48 5 (specimen) PM CDT 10:58 PM CDT Constance Wolff PA-C LAB - BLOOD ORDERABLES Performing Organization Address City/State/ZIP Code Phon e Number M [facility] [address] [place] [address] [phone] [facility] [address] [place] [address], [place] [phone] (ABNORMAL) Comprehensive metabolic panel (12/25/2014 10:48 PM CDT) Analysis Performed At Patho logist Time Signature Sodium 137 133 - 144 [place] mmol/L [facility] Potassium 4.3 3.4 - 5.3 [place] mmol/L [facility] Chloride 104 94 - 109 [place] mmol/L [facility] Carbon Dioxide 29 20 - 32 [place] mmol/L [facility] Anion Gap 4 3 - 14 [place] mmol/L [facility] Glucose 77 70 - 99 [place] mg/dL [facility] Urea Nitrogen 16 7 - 30 [place] mg/dL [facility] Creatinine 1.27 (H) 0.52 - [place] 1.04 mg/dL [facility] GFR Estimate 45 (L) >60 [place] mL/min/1.[address] Comment: Non GFR Calc GFR Estimate If Black 54 (L) >60 mL/min/1.7m2 F [facility] Comment: GFR Calc Calcium 8.2 (L) 8.5 - 10.1 mg/dL [facility] Bilirubin Total 0.2 0.2 - 1.3 mg/dL [facility] Albumin 3.7 3.4 - 5.0 g/dL [facility] Protein Total 7.1 6.8 - 8.8 g/dL [facility] Alkaline Phosphatase 87 40 - 150 U/L [facility] ALT 24 0 - 50 U/L [facility] AST 16 0 - 45 U/L [facility] Specimen Anatomical Collection Method Collection Time Receive d Time (Source) Location / / Volume Laterality Blood specimen 12/25/2014 10:48 5 (specimen) PM CDT 10:58 PM CDT Constance Wolff PA-C LAB - BLOOD ORDERABLES Performing Organization Address City/State/ZIP Code Phon e Number M [facility] [address] [place] [address] [phone] [facility] [address] [place] [address], [place] [phone] (ABNORMAL) CBC with platelets + differential (12/25/2014 10:48 PM CDT) [facility] gist Method Time Signature WBC 10.7 4.0 - [place] 11.0 [facility] 10e9/L [facility] RBC Count 3.98 3.8 - 5.2 [place] 10e12/L [facility] Hemoglobin 11.9 11.7 - [place] 15.7 g/dL [facility] Hematocrit 34.5 (L) 35.0 - [place] 47.0 % [facility] MCV 87 78 - 100 [facility] MCH 29.9 26.5 - [place] 33.0 pg [facility] MCHC 34.5 31.5 - [place] 36.5 g/dL [facility] RDW 12.3 10.0 - [place] 15.0 % [facility] Platelet Count 290 150 - 450 [place] 10e9/L [facility] Diff Method Automated [facility] % Neutrophils 71.9 % [facility] % Lymphocytes 19.2 % [facility] % Monocytes 5.6 % [facility] % Eosinophils 2.7 % [facility] % Basophils 0.5 % [facility] % Immature 0.1 % [place] Granulocytes [facility] Absolute 7.7 1.6 - 8.3 [place] Neutrophil 10e9/L [facility] Absolute 2.1 0.8 - 5.3 [place] Lymphocytes 10e9/L [facility] Absolute 0.6 0.0 - 1.3 [place] Monocytes 10e9/L [facility] Absolute 0.3 0.0 - 0.7 [place] Eosinophils 10e9/L [facility] Absolute 0.1 0.0 - 0.2 [place] Basophils 10e9/L [facility] Abs Immature 0.0 0 - 0.4 [place] Granulocytes 10e9/L [facility] Specimen Anatomical Collection Method Collection Time Receive d Time (Source) Location / / Volume Laterality Blood specimen 12/25/2014 10:48 5 (specimen) PM CDT 10:58 PM CDT Constance Wolff PA-C LAB - BLOOD ORDERABLES Performing Organization Address City/State/ZIP Code Phon e Number [facility] [address] [place] [phone] [facility] [address] [place] [address], [place] [phone] HCG qualitative urine (12/25/2014 10:05 PM CDT) athologist Signature HCG Qual Urine Negative NEG [facility] Specimen Anatomical Collection Method Collection Time Receive d Time (Source) Location / / Volume Laterality 12/25/2014 10:05 12/25/2014 PM CDT 10:51 PM CDT Brian Neil DO LAB - URINE ORDERABLES Performing Organization Address City/State/ZIP Code Phon e Number [facility] [address] [place] [address] (ABNORMAL) *UA reflex to Microscopic (12/25/2014 10:05 PM CDT) [facility] gist Method Time Signature Color Urine Yellow [facility] Appearance Urine Clear [facility] Glucose Urine 100 (A) NEG mg/dL [facility] Bilirubin Urine Negative NEG [facility] Ketones Urine Negative NEG mg/dL [facility] Specific [place] 1.010 1.003 - [place] Urine 1.035 [facility] Blood Urine Negative NEG [facility] pH Urine 6.0 5.0 - 7.0 [place] pH [facility] Protein Albumin Negative NEG mg/dL [place] Urine [facility] Urobilinogen 0.2 0.2 - 1.0 [place] Urine EU/dL [facility] Nitrite Urine Negative NEG [facility] Leukocyte Negative NEG [place] Esterase Urine [facility] Source Midstream [place] Urine [facility] Specimen Anatomical Collection Method Collection Time Receive d Time (Source) Location / / Volume Laterality 12/25/2014 10:05 12/25/2014 PM CDT 10:13 PM CDT Gem Ribeiro MD LAB - URINE ORDERABLES Performing Organization Address City/State/ZIP Code Phon e Number [facility] [address] [place] [address] documented in this encounter Visit [...] RN)2325 (Given - Provider: Gale Higuera RN) 3548 (Given - Provider: Gale Higuera RN) 1 mg, Intravenous, EVERY 15 MIN PRN, 3 d oses, Starting 12/25/14 at 2304, Until Discontinued, moderate to severe pain documented in this encounter Care Teams Iron Miner Relationship Specialty Start Date End Date No Ref-Primary, Physician PCP - General 12/25/14 12/28/17 documented as of this encounter
--- OUTSIDE RECORDS SUMMARY | 2022-01-24 17:29 | XMS_ITS | Encounter Summary ---
:1965 Author Organization [place] Address [address] [facility] [place] [address] Care Team Providers Name Role Phone Annette Alvarezmamadou ALVAREZ INDUSTRIAL ARTS TEACHER Unavailable [phone] Goran Lloyd Primary Care Provider Jocelyn Davidson RD Unavailable Reason for Visit Reason Onset Date Comments Forms 06/27/2018 [facility] t-slim reques t Encounter Details Date Type Department Care Team Description 06/27/[address] 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 Patient notified via MyChart. Mimi Cyr CMA on 06/29/2018 at 11:10AM Telephone Encounter - Annette Alvarez APRN CNP - 06/28/2018 1:34 PM CDT Form completed and signed. Annette Alvarez NP Endocrinology Telephone Encounter - Mimi Cyr CMA - 06/27/2018 10:04 AM CDT Received Statement of Medical Necessity and Prescription Order form from [facility] for a T-slim insulinpump. Dx: E10.65 [facility] Diabetes Care Team ph# [phone] opt.2 . Fax completed form and recent diabetic chart notes that state patient is actively using or has been recommended the use of an insulin pump and completed a diabetes education program (REQUIRED) to #[phone]. Form on Annette Alvarez's desk. Mimi Cyr M.A. documented in this encounter Plan of Treatment Upcoming Encounters Date Type Specialty Care Team Description 02/09/2022 Virtual Visit Surgery Mindi Llanes PA-C [address] [facility] [address] [place] [address] (Wo rk) documented as of this encounter Visit Diagnoses Not on filedocumented in this encounter Care Teams Dead Mail Checker Relationship Specialty Start Date End Date Goran Lloyd PCP - General Family Practice 12/29/17 05/21/20 [facility] [address] [place] [address] Annette Alvarez, Nurse Practitioner Clinical Nurse 03/22/17 10/21/20 ELECTRONIC MUSICAL INSTRUMENT REPAIRER INDUSTRIAL ARTS TEACHER Specialist [address] [place] [address] Core Shaper Sides Dietitian, Registered 05/25/18 JET MAGGIE [facility] [place], [place] [phone] documented as of this encounter
--- OUTSIDE RECORDS SUMMARY | 2022-01-24 17:29 | XMS_ITS | Encounter Summary ---
:1965 Author Organization [place] Address [address] [place] [address]. [place] [address] Care Team Providers Name Role Phone Annette Alvarez KIM RODRIGUEZ Unavailable [phone] Goran Lloyd Primary Care Provider Reason for Visit Reason Onset Date Comments Patient Request 03/27/2018 Suspended License Encounter Details Date Type Department Care Team Description 03/27[facility] Re [facility] KIM [place] FURNITURE UPHOLSTERER (Suspended License) [address] [place] [address] [phone] Social History Tobacco Use Types Packs/Day Years Used Date Smoking Tobacco: Never Smokeless Tobacco: Never Alcohol Use Standard Drinks/Week Comments Yes 0 (1 standard drink = 0.6 oz pure alcoho l) rare Sex Assigned at Date Recorded 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 Included a copy of the letter for the patient's own files. Left a voicemail stating that the requested letter was mailed to her home address. Mimi Cyr CMA on 03/29/2018 at 1:53 PM EMARK AFFIXER Telephone Encounter - Annette Alvarez APRN CNP - 03/29/2018 1:38 PM TRADEMARK AFFIXER Letter completed. Annette Alvarez NP Endocrinology EMARK AFFIXER Telephone Encounter - Mimi Cyr CMA - [...] to drive and was faxed to the [place] [employer]: Driver Education Road Instructor and Vehicle Services. In addition to having the form faxed, patientstates she keeps a copy with her in the car. Has a future appointment scheduled for her routine diabetic follow-up on 04/19/18. Patient would like this letter mailed to her home. She will be bringing the letter with her to court. Please advise. Ok to leave a detailed message on her voicemail at [phone]. Mimi Cyr CMA on 03/29/2018 at 1:22 PM EMARK AFFIXER Telephone Encounter - Ramila Mejia - 03/27/2018 [...] Alvarez or her nurse-please call her at [phone]. EMARK AFFIXER documented in this encounter Plan of Treatment Upcoming Encounters Date Type Specialty Care Team Description 02/09/2022 Virtual Visit Surgery Mindi Llanes, FE-C [address] [facility] [address] [place] [address] (Wo rk) documented as of this encounter Visit Diagnoses Not on filedocumented in this encounter Care Teams Processing Clerk Relationship Specialty Start Date End Date Goran Lloyd PCP - General Family Practice 12/29/17 05/21/20 [facility]ICAL [address] [place] [address] Annette Alvarez, Nurse Practitioner Clinical Nurse Specialist 10/21/20 FIBERGLASS AUTOBODY REPAIRER FURNITURE UPHOLSTERER [address] [place] [address] documented as of this encounter
--- OUTSIDE RECORDS SUMMARY | 2022-01-24 17:29 | XMS_ITS | Encounter Summary ---
:1965 Author Organization [place] Address [address] [facility] [place] [address] Care Team Providers Name Role Phone Annette Alvarez KIM SCOURER Unavailable Goran Lloyd Primary Care Provider Jocelyn Davidson RD Unavailable Encounter Details Date Type Department Care Team Description 06/12/2018 Orders Only [facility] Annette Alvarez Type 1 rohan betes mellitus with complications (H) (Primary Dx); Clinic [place] KIM [place] SCOURER Abdominal bloating [address] [place] [address] [phone] Social History Tobacco Use Types Packs/Day Years Used Date Smoking Tobacco: Never Smokeless Tobacco: Never Alcohol Use Standard Drinks/Week Comments Yes 0 (1 standard drink = 0.6 oz pure alcoho l) rare Sex Assigned at Date Recorded 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 documented as of this encounter Plan of Treatment Upcoming Encounters Date Type Specialty Care Team Description 02/09/2022 Virtual Visit Surgery Mindi Llanes PA-C [address] [place] [address] (Wo rk) documented as of this encounter Visit Diagnoses Diagnosis Type 1 diabetes mellitus with complicati ons (H) - Primary Abdominal bloating Flatulence, eructation, and gas pain documented in this encounter Care Teams Director Learning Services Relationship Specialty Start Date End Date Goran Lloyd PCP - General Family Practice 12/29/17 05/21/[address] [address] Annette Alvarez, Nurse Practitioner Clinical Nurse 03/22/17 10/21/20 TUBE BUILDER AIRPLANE SCOURER Specialist [address] [place], [place] [phone] Jocelyn Davidson RD Clay Puddler Dietitian, Registered 05/25/18 [facility] MAGGIE [facility] [place] [address] documented as of this encounter
--- OUTSIDE RECORDS SUMMARY | 2022-01-24 17:29 | XMS_ITS | Encounter Summary ---
:1965 Author Organization [place] Address [address] [place] [address]. [place] [address] Care Team Providers Name Role Phone No Ref-Primary, Physician Primary Care Provider [phone] Reason for Visit Reason Onset Date Comments Medication Request 01/26/2017 test strips Encounter Details Date Type Department Care Team Description [facility] An[facility], Medication Request (test [place] PEDIATRIC ASSISTANT PRIVATE CLIENT ADVISOR strips) [address] [facility] [address] [place] [id number] (Wo rk) Social History Tobacco Use Types Packs/Day Years Used Date Smoking Tobacco: Never Smokeless Tobacco: Never Alcohol Use Standard Drinks/Week Comments Yes 0 (1 standard drink = 0.6 oz pure alcoho l) rare Sex Assigned at Date Recorded 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 Ashok Bella RN Telephone Encounter - Annette Alvarez, PEDIATRIC ASSISTANT PRIVATE CLIENT ADVISOR - 01/27/2017 12:25 PM CDT Please call [...] work shift times, OK to leave message [phone] Routing refill request to provider for review/approval because: Drug not active on patient's medication list Ashok Bella, RN documented in this encounter Plan of Treatment Upcoming Encounters Date Type Specialty Care Team Description 02/09/2022 Virtual Visit Surgery Mindi Llanes PA-C [address] [place] [address] (Wo rk) documented as of this encounter Visit Diagnoses Diagnosis Type 1 diabetes mellitus with complicati ons (H) - Primary Uncontrolled type 1 diabetes mellitus wi th stage 3 chronic kidney disease Type I (juvenile type) diabetes mellitus with renal manifestations, uncontrolled documented in this encounter Care Teams Mud Tank Operator Relationship Specialty Start Date End Date No Ref-Primary, Physician PCP - General 12/25/14 12/28/17 documented as of this encounter
--- OUTSIDE RECORDS SUMMARY | 2022-01-24 17:29 | XMS_ITS | Encounter Summary ---
:1965 Author Organization [place] Address [address] [place] [address]. [place] [address] Care Team Providers Name Role Phone Antonio Annette Monroe APRN TRAIN CONTROLLER Unavailable [phone] Goran Lloyd Primary Care Provider Reason for Visit Reason Onset Date Comments Refill Request 02/08/2018 metFORMIN (GLUCOPHAG E-XR) 500 MG 24 hr tablet (Discontinued) Encounter Details Date Type Department Care Team Description 02/08/2018 Refill [facility] Annette Alvarez, Refill Request [place] MEDIA ANALYTICS MANAGER TRAIN CONTROLLER (metFORMIN [address] [facility] [id number] [place] [address] (GLUCOPHAGE-XR) 500 MG [place], [place] 24 hr t ablet [id number] (Discontinued)) [phone] (Wo rk) Social History Tobacco Use Types Packs/Day Years Used Date Smoking Tobacco: Never Smokeless Tobacco: Never Alcohol Use Standard Drinks/Week Comments Yes 0 (1 standard drink = 0.6 oz pure alcoho l) rare Sex Assigned at Date Recorded Female 03/04/2020 12:33 PM [employer] documented as of this encounter Miscellaneous Notes Telephone Encounter - Maye Souza RN - 02/09/2018 10:37 AM CST Images from the original note were not included. Refill request for Metformin. This was dc'd 01/31/18 due to her creatinine. See below. Note to pharmacy. Maye Souza RN Biguanide Agents Jvzlmi71/14 11:23 AM Patient has documented LDL within the past 12 mos. Patient's CR is NOT>1.4 OR Patient's EGFR is NOT<45 within past 12 mos. Quita Castillo RN ?? 01/31/18 5:30 PM Note Clinic Action Needed: No FNA Triage Call Presenting Problem: Marnie returned phone call from VASQUEZ Orozco. Provided note to Marnie per [facility]. Marnie verbalized understanding and had no additional questions at this time. ?? Routed to: VASQUEZ Minaya ?? Quita Castillo RN/FNA ? 01/31/18 5:29 PM Marnie Duvall contacted Quita Castillo RN ? 01/31/18 8:50 AM Pam Boudreaux, VASQUEZ routed this conversation to Cr Triage Pam Boudreaux RN ?? 01/31/18 8:49 AM Note Notes Recorded by Annette Alvarez APRN TRAIN CONTROLLER on 01/30/2018 at 6:07 PM Please call [...] Boudreaux RN, BS Clinical Nurse Triage. ?? AT SCHOOL Telephone Encounter - Leslie Gamble - 02/08/2018 11:22 AM CST Discontinued Per Pharmacy patient has prescription from another pharmacy that are non transferable to [facility] becausethey have or have run out. metFORMIN (GLUCOPHAGE-XR) 500 MG 24 hr tablet (Discontinued) Last Written Prescription Date: 02/04/17-02/04/17 Last Fill Quantity: 90 tablet, # refills: 1 Last Office Visit: 01/26/18 Antonio Future Office visit: Next 5 appointments (look out 90 days) Mar 30, 2018 1:00 PM [employer] Return Visit with Annette Alvarez APRN CNP [facility] [address] [facility] [phone] Routing refill request to provider for review/approval because: Drug not active on patient's medication list [facility] documented in this encounter Plan of Treatment Upcoming Encounters Date Type Specialty Care Team Description 02/09/2022 Virtual Visit Surgery Mindi Llanes PA-C [address] [facility] [address] [place] [address] (Wo rk) documented as of this encounter Visit Diagnoses Diagnosis Type 1 diabetes mellitus with complicati ons (H) documented in this encounter Care Teams Insurance Sales Assistant Relationship Specialty Start Date End Date Goran Llody PCP - General Family Practice 12/29/17 05/21/20 [facility] [address] [place] [address] Annette Alvarez, Nurse Practitioner Clinical Nurse Specialist 10/21/20 KIM RODRGIUEZ [address] [place] [address] documented as of this encounter
--- OUTSIDE RECORDS SUMMARY | 2022-01-24 17:29 | XMS_ITS | Encounter Summary ---
:1965 Author Organization [facility] Address [address] [place] [address]. [place] [address] Care Team Providers Name Role Phone Annette Alvarez KIM RODRIGUEZ Unavailable [phone] Goran Lloyd Primary Care Provider Reason for Visit Reason Onset Date Comments Patient Request for Note/Letter 01/04/2018 patient requesting letter to DM Encounter Details Date Type Department Care Team Description 01/04/2018 Telephone [facility] Annette Alvarez Patient Re quest for Clinic [place] KIM Monroe CNP Note/Letter (patient [id number] [facility] [id number] [place] [address] requesting letter to [facility]) [phone] Social History Tobacco Use Types Packs/Day Years Used Date Smoking Tobacco: Never Smokeless Tobacco: Never Alcohol Use Standard Drinks/Week Comments Yes 0 (1 standard drink = 0.6 oz pure alcoho l) rare Sex Assigned at Date Recorded Female 03/04/2020 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 Need to inform of all recommendations as [...] while driving. 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 Her blood sugar dropped while driving home. She was driving [employer] and 911 was called by several people. She eventually ended up driving thewrong way on a one way. Police were able to get her to kidney puller and determined her BG was in the 20's and were able to treat her. Patient saw her primary outside of [facility] so there is no documentation in her [facility] chart. The letter written by her primary has not been accepted by the [place] [employer]. Patient was pulled over yesterday and was told by the officer that her license is under suspension. Patient has until 01/13/18 to submit a letter from her doctor stating that her diabetes is under goodcontrol, that she is safe to drive and is currently under the care of a physician/provider for her diabetes. The letter needs to be on [facility] Letterhead and needs to have the providers [...] is able to drive. Please call patient [phone]. Andreina Falcon Cash Control Specialist documented in this encounter Plan of Treatment Upcoming Encounters Date Type Specialty Care Team Description 02/09/2022 Virtual Visit Surgery Mindi Llanes PA-C [address] [facility] [address] [place] [address] (Wo rk) documented as of this encounter Visit Diagnoses Not on filedocumented in this encounter Care Teams Sample Finisher Relationship Specialty Start Date End Date Goran Lloyd PCP - General Family Practice 12/29/17 05/21/[address] [address] Annette Alvarez, Nurse Practitioner Clinical Nurse Specialist 10/21/20 GERIATRIC NURSE DAY CAMP COUNSELOR [address] [place] [address] documented as of this encounter
--- OUTSIDE RECORDS SUMMARY | 2022-01-24 17:29 | XMS_ITS | Encounter Summary ---
:1965 Author Organization [place] Address [address] [facility] [place] [address] Care Team Providers Name Role Phone No Ref-Primary, Physician Primary Care Provider Annette Alvarez APRN SAMPLE STITCHER Unavailable Reason for Visit Reason Onset Date Comments Prior Auth - Medication 06/27/2017 Contrave APPROVE D Encounter Details Date Type Department Care Team Description 06/27/2017 Telephone [facility] Annette Alvarez Prior Auth - Medication Clinic [place] KIM Monroe CNP (Contrave APPROVED) [address] [place] [id number] [phone] Social History Tobacco Use Types Packs/Day Years Used Date Smoking Tobacco: Never Smokeless Tobacco: Never Alcohol Use Standard Drinks/Week Comments Yes 0 (1 standard drink = 0.6 oz pure alcoho l) rare Sex Assigned at Date Recorded 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 Prior Authorization Approval Authorization Effective Date: 06/29/2017 Authorization Expiration Date: 10/29/2017 Medication: Contrave APPROVED Approved Dose/Quantity: 120/30 days Reference #: [id number] Insurance Company: [employer] - Expected CoPay: $25.00 Which Pharmacy is filling the prescription (Not needed for infusion/clinic administered): [facility] [address] [place] [address] [address] Pharmacy Notified: Yes Patient Notified: Yes Telephone Encounter - Lynsey Pro - 06/29/2017 9:00 AM CDT Images from the original note were not included. PA Initiation Medication: Contrave Insurance Company: [employer] - Pharmacy Filling the Rx: [facility] [id number] [facility] [address] Filling Pharmacy Filling Pharmacy Fax: Start Date: 06/29/2017 Central Prior Authorization Team Telephone Encounter - Karley Kessler CMA - 06/28/2017 1:48 PM CDT PA request routed to kathleen. Waiting to hear back. Karley Kessler CMA Telephone Encounter - Karley Kessler CMA - 06/28/2017 1:31 PM CDT Prior Authorization Retail Medication Request Medication/Dose: Contrave ICD code (if different than what is on RX): Previously Tried and Failed: See below Rationale: Insurance Name: [employer] [facility] Pharmacy Information (if different than what is [...] Mindi Llanes PA-C [address] [facility] [address] [place] [address] (Wo rk) documented as of this encounter Visit Diagnoses Not on filedocumented in this encounter Care Teams Sharepoint Consultant Relationship Specialty Start Date End Date No Ref-Primary, PCP - General 12/25/14 12/28/17 Physician Annette Alvarez, Nurse Practitioner Clinical Nurse Specialist 10/21/20 KIM RODRIGUEZ [address] [place] [address] documented as of this encounter
--- OUTSIDE RECORDS SUMMARY | 2022-01-24 17:30 | XMS_ITS | Encounter Summary ---
:1965 Author Organization [place] Address [facility] 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
--- OUTSIDE RECORDS SUMMARY | 2022-01-24 17:30 | XMS_ITS | Clinical Summary ---
:1965 Author Organization [facility] [place] [address] Care Team Providers Name Role Phone None [...] meals. (gastroesophageal reflux disease), Cricopharyngeal spasm Insulin [place], For administering 1 box 11 03/01/2014 Active [...] a few week. Met with Naveen, the hematology nurse educator, ~2 months ago. Hypothyroidism Overview: Formatting of this note is dif ferent from the original. Levothyroxine. TSH (uIU/mL) Date Value 05/04/2016 0.24 (L) Knee osteoarthritis Overview: bilateral, has had injections. Sobia damon. Pain 7-11/04. Can't be seen at [facility], owes them money. They suggested 2 total [...] 06/28/2016 Anxiety 05/31/2013 05/31/2013 control 05/31/2013 06/28/2016 Encounters Date Type Specialty Care Team Description 01/22/2022 Lab Requisition Tamar Solorzano MD from Last 3 Months Immunizations Name Administration Dates Next Due Hepatitis [...] 2013-Presen t WC WORKERS COMP WC [facility] [id number] 2013-Prese [address] [address] [place] [address] [employer] VEHICLE [employer] [id number] 2014-Prese [address] [place] [address] [employer] [place] [employer] [id number] 2015-Presen [address] [place] [address] [employer] [id number] Effective for [address] [address] [place] [address] BLUE CROSS BL[employer] CR[employer] OF [id number] 2015-Presen [address] [place] [address] BLUE CROSS BLUE CROSS OF [id number] 2012-Prese [address] [place] [address] Marnie Duvall Personal/Family Self [phone] (Home) [place] [id number] Marnie Duvall Personal/Family Self [phone] ([place]) [place] [id number] Marnie Duvall Workers Comp Self 1965 [id number] [address] (Home[place] [phone] Marnie Duvall Workers Comp Self 1965 [id number] [address] ([place]) [place] [id number] Marnie Duvall Motor Vehicle Self 1965 [id number] [address] (Home) [place] [id number] [facility] Employer 03/28/2000 ATTN [employer] [address] (Home) PAYABLE [phone] [address] (Work) [place] [address] Advance Directives Latest Code Status on File [...] 12:07 AM 02/22/2014 3:56 PM Care Teams Boat Hop Relationship Specialty Start Date End Date Pcp, No PCP - General 12/06/18 . None 01/04/13 .
[2022-01-24 17:39] LABS: Albumin* 3.7 g/dL (3.3-5.0); Chloride* 97 mmol/L (96-114)
[2022-01-24 17:40] LABS: Potassium* 4.7 mmol/L (3.6-5.1); Sodium* 129 mmol/L (135-149)
[2022-01-24 17:42] LABS: Creatinine* 5.6 mg/dL (0.5-1.5); Est. Creatinine Clearance* 12.54; Estimated Glomerular Filt Rate 8 ml/min
[2022-01-24 17:43] LABS: Alanine Aminotransferase* 41 U/L (4-35); Alkaline Phosphatase* 97 U/L (40-150); Aspartate Amino Transferase* 64 U/L (12-35); Bilirubin Direct* 0.5 mg/dL (0.0-0.5); Bilirubin Total* 0.9 mg/dL (0.1-1.5); Blood Urea Nitrogen* 72 mg/dL (7-30); Calcium* 8.9 mg/dL (8.4-10.6); Carbon Dioxide* 20 mmol/L (20-32); Glucose* 197 mg/dL (60-115); Lipase* 12 U/L (23-300); Total Protein* 6.9 g/dL (6.0-8.3)
[2022-01-24] MEDS: PIPERACILLIN/TAZOBACTAM 3.375 GM in 0.9 % SODIUM CHLORIDE Mini-bag 100 ML IVPB (17:43)
[2022-01-24 17:45] LABS: C Reactive Protein* 8.8 mg/dL (0.5-1.0)
[2022-01-24 17:55] LABS: SARS PCR* Negative SARS-CoV-2 (Negative); Troponin I* < 0.01 ng/mL (0.01-0.04)
[2022-01-24] MEDS: 0.9 % SODIUM CHLORIDE 1000 ml 1,000 ML IV ×2 (18:33→21:42)
[2022-01-24 18:52] LABS: Lactate Sepsis 2 Hour 1.3 mmol/L (0.5-1.9)
[2022-01-24 19:16] LABS: Procalcitonin* > 100.00 ng/mL (<0.50)
[2022-01-24 20:07] LABS: Appearance Urine Clear (Clear); Bilirubin Urine 1+ (Negative); Blood Urine Trace-intact (Negative); Color Urine Yellow (Yellow); Glucose Urine Trace (Negative); Ketones Urine Negative (Negative); Leukocyte Esterase Urine Negative (Negative); Nitrite Urine Negative (Negative); Protein Urine Negative (Negative); Specific Gravity Urine 1.015 (1.000-1.030); Urobilinogen Urine 0.2 (0.2-1.0)
[2022-01-24 20:46] LABS: RBC Urine 0-2 (0-2); Squamous Epithelial Cell Urine Moderate (None-Few); WBC Urine 0-2 (0-5)
[2022-01-24 21:05] LABS: HCO3 VBG 19 mmol/L (21-28); PCO2 VBG 42 mmHG (40-50); PO2 VBG 34.4 mmHG (25-47); pH VBG 7.254 (7.32-7.43)
[2022-01-24 21:06] LABS: Lactate* 1.2 mmol/L (0.5-1.9)
[2022-01-24 21:23] LABS: Chloride* 95 mmol/L (96-114); Potassium* 5.8 mmol/L (3.6-5.1); Sodium* 126 mmol/L (135-149)
[2022-01-24 21:26] LABS: Blood Urea Nitrogen* 69 mg/dL (7-30); Carbon Dioxide* 17 mmol/L (20-32); Creatinine* 5.1 mg/dL (0.5-1.5); Est. Creatinine Clearance* 13.77; Estimated Glomerular Filt Rate 9 ml/min
[2022-01-24 21:27] LABS: Calcium* 7.8 mg/dL (8.4-10.6)
[2022-01-24 21:34] LABS: Glucose* 397 mg/dL (60-115)
--- NOTE | 2022-01-24 21:37 | ED.NURSE ---
Critical lab received: [address] [facility]
--- NOTE | 2022-01-24 21:42 | ED.NURSE ---
MD updated on VS, iv bolus NS 1L started per MD Gross verbal,
--- NOTE | 2022-01-24 22:55 | ED.NURSE ---
Run of tachycardia 190s noted on monitor. Now ST with no ectopy. Leovphed gtt decreased. aware.
[2022-01-24] MEDS: INSULIN INF 100 UNIT/100 ML 100 UNIT/100 ML BAG 6.5 UNIT IVPB (23:00)
--- NOTE | 2022-01-24 23:02 | ED.NURSE ---
Insulin infusion began per MAY. BP 150/48 Map 87 norepi titrated down to 0.04
--- NOTE | 2022-01-24 23:03 | ED.NURSE ---
75 ml dark green fluid emptied from right incisional gilmer drain
--- NOTE | 2022-01-24 23:39 | ED.NURSE ---
FSG at 2330 was 2330.
--- NOTE | 2022-01-24 23:40 | ED.NURSE ---
Report given to ALEISHA Chavarria METAL DRILL PRESS OPERATOR. Pt will go to [facility] 2040. [facility] staff request to be notified at time of Pt departure .
--- NOTE | 2022-01-24 23:45 | ED.NURSE ---
Called EMS for transport, approximate one hour wait time.
[2022-01-25] VITALS: PULSE 111; O2SAT 93
[2022-01-25 00:02] VITALS: BP 143/52; PULSE 111; O2SAT 93
--- NOTE | 2022-01-25 00:10 | ED.NURSE ---
FSG checked with glucometer. 310
[2022-01-25 00:12] VITALS: BP 152/65; PULSE 114; O2SAT 94
[2022-01-25 00:15] VITALS: PULSE 116; O2SAT 90
[2022-01-25 00:22] VITALS: BP 134/70; PULSE 110; O2SAT 96
[2022-01-25 00:23] VITALS: PULSE 109; O2SAT 97
--- NOTE | 2022-01-25 00:47 | ED.NURSE ---
Patient transfered with [facility] with insulin infusion and Epi infusing per MAR. Call made to to give update.
--- NOTE | 2022-01-25 00:56 | ED.NURSE ---
EKG not completed and Calcium gluconate missed due to RN working on facilitating transfer with report, dispatch, paper work and monitoring and titration of Epi and insulin.
== END 2022-01-25 00:40 | disposition home or self-care (01) ==
PROVIDERS: Emergency Provider Family Medicine; PCP Family Medicine
DX: K83.09 Other cholangitis (principal); A41.9 Sepsis, unspecified organism
CPT/HCPCS: 36415; 71045; 74177; 80048; 80076; 81001; 82140; 82803; 82962; 83605; 83690; 84145; 84484; 85025; 86140; 87040; 87635; 93005; 94761; 96365; 96366; 99285; 99291; 99292; J2543; J3370; J3590; J7030; J7050; J7120; Q9967

== ENCOUNTER 2022-01-25 00:25 | Outpatient (CLI) | payer OTHER, SELFPAY ==
--- OUTSIDE RECORDS SUMMARY | 2022-02-09 13:17 | XMS_ITS | Clinical Summary ---
:1965 Author Organization [place] Address [address] [facility] [place] [address] Care Team Providers Name Role Phone Jocelyn Davidson RENATA Unavailable Nikita Gamble Primary Care Provider Naveen Casiano MD Unavailable Mikki Blevins MD Unavailable Mikki Blevins MD Unavailable Mindi Llanes PA-C Unavailable [phone] Allergies No known active allergies Medications Medication Sig Dispensed Refills Start End Date Status Date Citalopram Take 40 mg by 0 Activ e Hydrobromide mouth daily (CELEXA PO) Topiramate Take 200 mg by 0 Acti ve (TOPAMAX PO) mouth daily aspirin 81 MG Take by mouth 0 Ac tive tablet daily Pyridoxine HCl 0 Activ e (VITAMIN B6 PO) Calcium 0 Active Carb-Cholecalcifer ol (CALCIUM + D3 PO) sennosides Take 2 tablets by 0 A ctive (SENOKOT) 8.6 MG mouth daily tablet INSULIN PUMP - Date last updated: 02/21/19 0 01 Active OUTPATIENTIndicati T:Slim x2 9 ons: Type 1 BASAL RATES and times: diabetes mellitus 12 AM (midnight): 1.7 units/hour with complications CARB RATIO and times: (H) 12 AM (midnight): 5.5 Corection Factor (Sensitivity) and times: 12 AM (midnight): 23 mg/dL BLOOD GLUCOSE TARGET and times: 12 AM (midnight): 120 Active Insulin Time: 4 hours Using T:Connect: Yes Dexcom Sharing Code: [id number] blood glucose USE TO TEST BLOOD 200 each 3 Active (ACCU-CHEK RADHA GLUCOSE LEVELS 0 PLUS) test 2TIMES DAILY OR stripIndications: DIRECTED. Uncontrolled type 1 diabetes with renal manifestation, Type 1 diabetes mellitus with complications (H) insulin Use 1 syringe as 20 each 11 Act thai syringe-needle needed, during 0 U-100 (30G X 1/2 pump failure. 0.5 ML) 30G X 1/2 0.5 ML miscellaneousIndic ations: Type 1 diabetes mellitus with complications (H) insulin pen needle Use 4 daily or as 100 each 3 Active (B-D U/F) 31G X 5 directed. 0 MM miscellaneous methocarbamol Take 1 tablet 40 tablet 0 Ac tive (ROBAXIN) 500 MG (500 mg) by mouth 1 tabletIndications: 4 times daily as Back muscle spasm needed [...] kidney disease (H) levothyroxine Take 1 tablet 90 tablet 3 Ac tive (SYNTHROID/LEVOTHR (200 mcg) by 2 OID) 200 MCG mouth daily tabletIndications: Hypothyroidism due to acquired atrophy of thyroid Glucagon, rDNA, INJECT 1 MG BY 2 kit 0 Active (GLUCAGON INTRAMUSCULAR 2 EMERGENCY) 1 MG ROUTE NEEDED KITIndications: FOR LOW BLOOD Hypothyroidism due SUGAR to acquired atrophy of thyroid amoxicillin TAKE 4 CAPSULES 0 Ac tive (AMOXIL) 500 MG BY MOUTH ONCE FOR 2 capsule 1 DOSE amoxicillin Take 2,000 mg by 0 A ctive (AMOXIL) 500 MG mouth capsule cefdinir (OMNICEF) 0 A ctive 300 MG capsule 2 phentermine Take 1 tablet 90 tablet 1 Acti ve (ADIPEX-P) 37.5 MG (37.5 mg) by 2 tabletIndications: mouth every Class 1 obesity morning (before due to excess breakfast) calories without serious comorbidity with body mass index (BMI) of 34.0 to 34.9 in adult insulin degludec For pump failure 15 mL 1 Discontinued (TRESIBA) 200 only. Inject 39 0 22 UNIT/ML pen units every 24 hours. phentermine Take 0.5 tablets 30 tablet 1 02/10/20 D iscontinued (ADIPEX-P) 37.5 MG (18.75 mg) by 2 22 (Reorder) tabletIndications: mouth every Class 2 severe morning for 10 obesity due to days then may excess calories increase to 1 with serious tablet if needed comorbidity and following this body mass index (BMI) of 36.0 to 36.9 in adult (H) Active Problems Problem Noted Date CKD (chronic kidney disease) stage 4, GFR 15-29 ml/min 09/22/2021 Class 1 obesity due to excess calories without serious comorbidity with 07/28/2021 body mass index (BMI) of 34.0 to 34.9 in adult Overview: 09/22/2021 MWL initial Wt 265# Phentermin e Start MKD Last Assessment & Plan: Patient was congratulated on wt loss suc cess thus far. Healthy habits to assist with further weight loss were discussed. Marnie will restart the phentermine. She will switch her ensure breakfast drink to a protein drink like ensure max. Migraine with status migrainosus, not intractable, uns [...] Description 02/09/2022 Virtual Visit Surgery Mindi Llanes Class 1 obe sity due to PRETTY Macias excess calori es without serious comorbi dity with body mass index (BMI) of 34.0 to 34.9 in adult 12/29/2021 Virtual Visit Endocrinology Mikki Blevins MD No-show for appointment (Primary Dx) 12/24/2021 Telephone Surgery Mindi Llanes Refill Reque st PRETTY Macias (phentermine) 12/20/2021 Refill Surgery Mindi Llanes Medication R efill PRETTY Macias 11/09/2021 Refill Endocrinology Mikki Blevins MD Medicati [...] Smokeless Tobacco: Never Tobacco Cessation: Counseling Given: Not Answered Alcohol Use Standard Drinks/Week Comments Yes 0 (1 standard drink = 0.6 oz pure alcoho l) rare Sex Assigned at Date Recorded 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 Filed Vital Signs Vital Sign Reading Time Taken Comments Blood Pressure 128/68 11/06/2020 3:31 PM CDT Pulse 75 11/06/2020 3:31 PM CDT Temperature 37 ??C (98.6 ??F) 11/06/2020 3:31 PM CDT Respiratory Rate 19 02/26/2020 1:31 PM STAGE SET UP WORKER Oxygen Saturation 96% 11/06/2020 3:31 PM CDT Inhaled Oxygen Concentration - - Weight 111.1 kg (245 lb) 02/09/2022 9:39 AM STAGE SET UP WORKER last re corded Height 180.3 cm (5' 11) 02/09/2022 9:39 AM STAGE SET UP WORKER pt repo rted Body Mass Index 34.17 02/09/2022 9:39 AM STAGE SET UP WORKER Plan of Treatment Health Maintenance Due Date [...] history exists EYE EXAM 05/07/2021 05/07/2020, 05/27/2019 LIPID 01/05/2022 01/05/2021, 03/05/2020 HPV TEST 06/09/2022 06/09/2017 PAP 06/09/2022 06/09/2017, 06/09/2017 A1C 07/26/2022 01/26/2022, 01/05/2021, 12/02/2020, Additional history exists DTAP/TDAP/TD IMMUNIZATION 01/11/2026 01/12/2016, 01/12/2016 , (4 [...] patient 's age to complete this topic Procedures Procedure Name Priority Date/Time Associated Diagnosis Comme nts HOME WEIGHT FLOWSHEET Routine 02/09/2022 12:21 PM Class 1 obes ity due to ORDER STAGE SET UP WORKER excess calories without serious comorbidity with body mass index (BMI) of 34.0 to 34.9 in adult from Last 3 Months Insurance Payer Benefit Plan / Subscriber ID Effective Phone Address T ype Group Dates [facility] [id number] 2016-Pres [phone] [address] O ADVANTAGE ent [address] [place] [address] Care Teams Visual Journalist Relationship Specialty Start Date End Date Nikita Gamble PCP - General Family Medicine 05/26/20 [facility] [address] [place] [address] Paper Gluing Operator Dietitian, Registered 05/25/18 [facility] [place] [id number] Naveen Casiano MD Assigned PCP 11/16/20 [address] [place] [address] Mikki Blevins MD MD Endocrinology, 05/07/21 [address] [facility] Diabetes, and [place], [place] Metabolism [address] Mikki Blevins MD Assigned Endocrinology 08/02/21 [facility] [place], [place] [id number] Mindi Llanes Assigned Surgical 09/26/21 PRETTY Macias Provider [address] [place] [address]
--- OUTSIDE RECORDS SUMMARY | 2022-02-09 13:17 | XMS_ITS | Encounter Summary ---
:1965 Author Organization [place] Address [address] [facility] [place] [address] Care Team Providers Name Role Phone Jocelyn Davidson RENATA Unavailable Nikita Gamble Primary Care Provider Naveen Casiano MD Unavailable Mikki Blevins MD Unavailable Mikki Blevins MD Unavailable Mindi Llanes PA-C Unavailable [phone] Reason for Visit Reason Onset Date Comments No Show No Show 10/20/2021 Encounter Details Date Type Department Care Team Description 10/20/2021 Virtual Visit [facility] Mikki Blevins MD No-show for Specialty Clinic [place] [facility] appointm ent (Primary [facility] Dx) [address] [facility] [address] [address] [place] [address] [phone] Social History Tobacco Use Types Packs/Day Years Used Date Smoking Tobacco: Never Smokeless Tobacco: Never Alcohol Use Standard Drinks/Week Comments Yes 0 (1 standard drink = 0.6 oz pure alcoho l) rare Sex Assigned at Date Recorded 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 [address] [place] [address] Seconds Grader Dietitian, Registered 05/25/[address] [place] [address] Naveen Casiano MD Assigned PCP 11/16/20 [address] [place] [address] Mikki Blevins MD MD Endocrinology, 05/07/21 [address] [facility] Diabetes, and [place], [place] Metabolism [address] iMkki Blevins MD Assigned Endocrinology 08/02/21 [facility] [place] [address] Mindi Llanes Assigned Surgical 09/26/21 PRETTY Macias Provider [address] [facility] [address] [place], [place] [address] documented as of this encounter
--- OUTSIDE RECORDS SUMMARY | 2022-02-09 13:17 | XMS_ITS | Encounter Summary ---
:1965 Author Organization [place] Address [address] [facility] [place] [address] Care Team Providers Name Role Phone Jocelyn Davidson RENATA Unavailable Nikita Gamble Primary Care Provider Naveen Casiano MD Unavailable Mikki Blevins MD Unavailable Mikki Blevins MD Unavailable Mindi Llanes PA-C Unavailable Reason for Referral Medication Prior Authorization - Pending Review Specialty Diagnoses / Procedures Referred By Contact Refer red To Contact Diagnoses Class 1 obesity due to excess calories without serious comorbidity with body mass index (BMI) of 34.0 to 34.9 in adult Mindi Llanes PA-C [address] [facility] [address] [place] [address] Referral ID Status Reason Start Date Expiration Date Visits V isits Requested Authorized [id number] Pending 1 1 Review TRIC METER INSPECTOR Reason for Visit Reason Comments RECHECK Return mary MIRAMONTES Encounter Details Date Type Department Care Team Description 02/09/2022 [facility] Class 1 obesity due Surgical Weight Loss Leah Macias to excess calories [facility] [address] without serious [address] comorbidity with body [place] [address] mass index (BMI) of [address] 34.0 to 34.9 in adult [place] [address] (Work) [phone] Social History Tobacco Use Types Packs/Day Years Used Date Smoking Tobacco: Never Smokeless Tobacco: Never Tobacco Cessation: Counseling Given: Not Answered Alcohol Use Standard Drinks/Week Comments Yes 0 (1 standard drink = 0.6 oz pure alcoho l) rare Sex Assigned at Date Recorded Female 03/04/2020 12:33 PM 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 documented as of this encounter Last Filed Vital Signs Vital Sign Reading Time Taken Comments Blood Pressure - - Pulse - - Temperature - - Respiratory Rate - - Oxygen Saturation - - Inhaled Oxygen Concentration - - Weight 111.1 kg (245 lb) 02/09/2022 9:39 AM 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 last re corded Height 180.3 cm (5' 11) 02/09/2022 9:39 AM 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 pt repo rted Body Mass Index 34.17 02/09/2022 9:39 AM 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 documented in this encounter Patient Instructions Patient InstructionsDvMindi novak PA-C - 02/09/2022 9:30 AM 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 Nice to talk with you today. Thank you for allowing me the privilege of caring for you. We hope we provided you with the excellent service you deserve. To ensure the quality of our services you may receive a patient satisfaction survey from an [employer] monitoring E.M.A.R.C.. The greatest compliment you can give is Likely to Recommend Below is our plan we discussed.- PRETTY [place] Plan: Restart phentermine 37.5 mg daily. IT may be working although you do notice the effect. You were down 20 lbs and did not feel you had done many changes. Below is the scale information we discussed. Goals: Switch protein drink in am to Ensure max which has 30 grams of protein in it. FOLLOW-UP: Please call [phone] to schedule your next visit in 3 months. Follow up with dip guider stoves now. Dear Patient, We hope to provide you with high quality telephone and virtual healthcare visits while social distancing for COVID-19 is necessary, as well as in the future when virtual visits may be more convenient for you. Our technology team made it possible for Bluetooth scales to send weight measurements to our electronic medical record. This allows weights from you weighing at home to securely flow into the medical record, which will improve telephone and virtual visits. Additionally, studies have shown that adults actually lose more weight when their weights are automatically sent to someone else, and also that this process is not stressful for those adults. Below is a link for purchasing the scale, with a discount code for our patients. You may call your insurance company to see if they will reimburse you for the cost of the scale, as a piece of durable medical equipment. The scales only go up to a weight of 400 pounds. This is an issue and we are working with the developer on increasing this. We found no scales that go over 400lb that have blue-tooth for connecting to [employer]. Scale to purchase: the [employer] ???Body?? Scale: https://www.[employer]/us/en/body/shop?gclid=[email or web address]&gclsrc=aw.ds Discount Code: We have a discount code for our patients to bring the cost down to $50, [place]_Scale_20%off Steps to link the scale to [employer] via an Android Phone (you can always disconnect at any point in the future): The order must be placed first before the patient can access Track My Health within [employer]. Download Google Instabug chrissy from the GameOn Log in or register using your Google account Download the [employer] chrissy from GameOn Select add organization Search for MamboCar and select it Log into [employer] Select Track My Health Select the green connect my account button When prompted log into your Google account Select okay to confirm the account Download the CityFashion for Business Mate chrissy from GameOn Kosse for [employer] Go to profile Tap Chakpak [employer] under the Apps section Select the option to activate [employer]sworld [place] integration Select the same Google account Select okay to confirm the account Steps to link the scale to [employer] via an iPhone (you can always disconnect at any point in the future): Note PlayGiga is not available for download on an iPad The order must be placed first before the patient can access Track My Health within [employer]. Locate the Health chrissy on your iPhone. Set up your PlayGiga account as prompted The Sources page will show Apps that communicate with your Health chrissy. Once all steps are completed,you should see Second Wind and dilitronicst listed under the Apps section and your iPhone under the devices section. Select Health Mate Under 'ALLOW ???HEALTH MATE?? TO WRITE DATA ensure the toggle is on for Weight. This will allow the scale to add your weight to the PlayGiga [facility] Health[facility] Partners[facility] Under 'ALLOW ???MYCHART?? TO READ DATA ensure the toggle is on for Weight. This allows [employer] to grab the weight from PlayGiga so your provider can see your weights. Download the [employer] chrissy from the Chrissy Store Select gate5 organization Search for MamboCar and select it Log into [employer] Select Track My Health Select the green connect my account button Follow prompts to link your device to [employer]. Download the [employer] health [employer] chrissy in the Chrissy Store Kosse for [employer] Go to profile [employer] Health under the Apps section If prompted to allow access with the Health Chrissy, toggle weight on for read and write access. TRIC METER INSPECTOR documented in this encounter Progress Notes Mindi Llanes PA-C - 02/09/2022 9:30 AM CST Marnie is a 56 year old who is being evaluated via a billable video visit. If the video visit is dropped, the invitation should be resent by: Text to cell phone: [phone] Will anyone else be joining your video visit? No Video-Visit Details Type of service: Video Visit Video Start Time: 9:44 AM Video End Time: 10:05 AM Originating Location (pt. Location): Home Distant Location (provider location): [facility] [place] Platform used for Video Visit: Martin, Had trouble connecting so needed to [facility] to telephone visit. 02/09/2022 Return Medical Weight Management Note Marnie Duvall : 1965 Dear Nikita Gamble, I had the pleasure of doing a visit with your patient Marnie Duvall. She is a 56 year old female who I am continuing to see for treatment of obesity related to: 09/21/2021 I have the following health issues associated with obesity: GERD (Reflux), Stress Incontinence I have the following symptoms associated with obesity: None of the above Assessment & Plan Problem List Items Addressed This Visit Class 1 obesity due to excess calories without serious comorbidity with body mass index (BMI) of 34.0 to 34.9 in adult Patient was congratulated on wt loss success thus far. Healthy habits to assist with further weightloss were discussed. Marnie will restart the phentermine. She will switch her ensure breakfast drink to a protein drink like ensure max. Relevant Medications phentermine (ADIPEX-P) 37.5 MG tablet Other Relevant Orders Home Weight Flowsheet Order (Completed) PATIENT INSTRUCTIONS: Restart phentermine 37.5 mg daily. Below is the scale information we discussed Goals: Switch protein drink in am to Ensure max which has 30 grams of protein in it. FOLLOW-UP: Please call [phone] to schedule your next visit in 3 months. Follow up with dip guider stoves now. 40 minutes spent on the date of the encounter doing chart review, history and exam, result review, counseling, developing plan of care, documentation, and further activities as noted INTERVAL HX: Marnie returns for medical weight management follow up. Last seen on 09/22/2021. Started on Phentermine. She is on Topiramate- for migraines. Has been lost to follow up until today. Last weight 2 weeks prior to hospital stay was 245 lbs. Just spend 2.5 weeks in hospital with sepsis following cholecystectomy. Her weight fluctuated during her hospital stay in the 260-270 range. Suspect this was due to fluid overload. Is currently on furosemide 40 mg daily. Does not have a home scale but is interested in purchasing. She is not sure the phentermine was working for her. Has bee out of it for a while. Did not notice much change in her eating habits. Although, was down 20 lbs since August prior to sepsis and hospital stay. WEIGHT METRICS: Body mass index is 34.17 kg/m??. Current Weight: 245 lb (111.1 kg) (last recorded) Last Visits Weight: 265 lb (120.2 kg) Initial Weight (lbs): 265 lbs Cumulative weight loss (lbs): 20 Weight Loss Percentage: 7.55% Wt Readings from Last 10 Encounters: 02/09/22 245 lb (111.1 kg) 09/22/21 265 lb (120.2 kg) 07/28/21 265 lb (120.2 kg) 02/26/20 250 lb (113.4 kg) 11/07/19 260 lb 11.2 oz (118.3 kg) 04/16/19 250 lb (113.4 kg) 12/29/17 233 lb 12.8 oz (106.1 kg) 06/17/17 254 lb 3.2 oz (115.3 kg) 02/04/17 248 lb 6.4 oz (112.7 kg) 11/25/16 244 lb 9.6 oz (110.9 kg) Weight Loss Medication (AOM) History Reviewed Current weight loss medication/s taking: Phentermine If not taking an AOM prescribed to you, please indicate why: Any side effects from the medication? None Changes and Difficulties Diet changes since last visit: Making good choices. With regards to diet, pt still struggling with: Feels she is not eating enough foods. Activity changes since last visit: Was in hospital, lower With regards to activity, pt still struggling with: Recovering from sepsis. Diet Recall: Am: Equate Shakes 8 grams of protein and banana Lunch 1/2 cup of cottage cheese, Yogurt with berries Afternoon: piece of fruit Supper: Protien and veggieabsorption syndrome . MEDICATIONS: Current Outpatient Medications Medication ??? acetone urine (KETOSTIX) test strip ??? amoxicillin (AMOXIL) 500 MG capsule ??? amoxicillin (AMOXIL) 500 MG capsule ??? aspirin 81 MG tablet ??? blood glucose (ACCU-CHEK RADHA PLUS) test strip ??? Calcium Carb-Cholecalciferol (CALCIUM + D3 PO) ??? cefdinir (OMNICEF) 300 MG capsule ??? Citalopram Hydrobromide (CELEXA PO) ??? Glucagon, rDNA, (GLUCAGON EMERGENCY) 1 MG KIT ??? insulin aspart (NOVOLOG VIAL) 100 UNITS/ML vial ??? insulin pen needle (B-D U/F) 31G X 5 MM miscellaneous ??? INSULIN PUMP - OUTPATIENT ??? insulin syringe-needle U-100 (30G X 1/2 0.5 ML) 30G X 1/2 0.5 ML miscellaneous ??? levothyroxine (SYNTHROID/LEVOTHROID) 200 MCG tablet ??? methocarbamol (ROBAXIN) 500 MG tablet ??? phentermine (ADIPEX-P) 37.5 MG tablet ??? Pyridoxine HCl (VITAMIN B6 PO) ??? sennosides (SENOKOT) 8.6 MG tablet ??? SUMAtriptan (IMITREX) 100 MG tablet ??? Topiramate (TOPAMAX PO) No current facility-administered medications for this visit. LABS: Hemoglobin A1C Date Value Ref Range Status 01/05/2021 7.4 (H) 0.0 - 5.6 % Final Comment: Normal <5.7% Prediabetes 5.7-6.4% Diabetes 6.5% or higher Note: Adopted from ADA consensus guidelines. 03/05/2020 6.6 (H) 0 - 5.6 % Final Comment: Normal <5.7% Prediabetes 5.7-6.4% Diabetes 6.5% or higher - adopted from ADA consensus guidelines. Sodium Date Value Ref Range Status 01/05/2021 [...] High: 200-499 mg/dl Very high: >499 mg/dl BP Readings from Last 6 Encounters: 11/06/20 128/68 03/05/20 110/60 02/26/20 138/70 11/22/19 138/60 11/07/19 110/60 04/16/19 120/68 Pulse Readings from Last 6 Encounters: 11/06/20 75 03/05/20 70 02/26/20 67 11/22/19 69 11/07/19 71 04/16/19 76 PE: Ht 5' 11 (1.803 m) Wt 245 lb (111.1 kg) BMI 34.17 kg/m?? GENERAL: Sounds alert and no distress Sincerely, Mindi Llanes PA-C TRIC METER INSPECTOR documented in this encounter Miscellaneous Notes Assessment & Plan Note - Mindi Llanes PA-C - 02/09/2022 12:23 PM CSTAssociated Problem(s): Class 1 obesity due to excess calories without serious comorbidity with body mass index (BMI) of 34.0 to 34.9 in adult Patient was congratulated on wt loss success thus far. Healthy habits to assist with further weight loss were discussed. Marnie will restart the phentermine. She will switch her ensure breakfast drink to a protein drink like ensure max. TRIC METER INSPECTOR documented in this encounter Plan of Treatment Not on filedocumented as of this encounter Procedures Procedure Name Priority Date/Time Associated Diagnosis Comme nts HOME WEIGHT FLOWSHEET Routine 02/09/2022 12:21 PM Class 1 obes ity due to ORDER 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 excess calories without serious comorbidity with body mass index (BMI) of 34.0 to 34.9 in adult documented in this encounter Visit Diagnoses Diagnosis Class 1 obesity due to excess calories w ithout serious comorbidity with body mass index (BMI) of 34.0 to 34.9 in adult documented in this encounter Additional Health Concerns Assessment Noted Time PHQ-9 Depression Total Score: 0 02/26/2020 1:30 PM 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 documented as of this encounter Care Teams Assembly Machine Set Up Mechanic Relationship Specialty Start Date End Date Nikita Gamble PCP - General Family Medicine 05/26/20 [facility] [address] [place] [address] Crown Ironer Dietitian, Registered 05/25/18 [facility] [address] [place] [address] [place] [address] Naveen Casiano MD Assigned PCP 11/16/20 [address] [place] [address] Mikki Blevins MD MD Endocrinology, 05/07/21 [address] [facility] Diabetes, and [place], [place] Metabolism [address] Mikki Blevins MD Assigned Endocrinology 08/02/21 [facility] [facility] Provider [place], [place] [id number] Mindi Llanes Assigned Surgical 09/26/21 PRETTY Macias Provider [address] [facility] [address] [place] [address] documented as of this encounter
--- OUTSIDE RECORDS SUMMARY | 2022-02-09 13:17 | XMS_ITS | Encounter Summary ---
:1965 Author Organization [place] Address [address] [facility] [place] [address] Care Team Providers Name Role Phone Jocelyn Davidson RENATA Unavailable Nikita Gamble Primary Care Provider Naveen Casiano MD Unavailable Mikki Blevins MD Unavailable Mikki Blevins MD Unavailable Mindi Llanes PA-C Unavailable Reason for Visit Reason Onset Date Comments No Show 12/29/2021 Encounter Details Date Type Department Care Team Description 12/29/2021 Virtual Visit [facility] Mikki Blevins MD No-show for Specialty Clinic [facility] appointm ent (Primary [place] [facility] Dx) [address] 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 documented as of this encounter Progress [...] Depression Total Score: 0 02/26/2020 1:30 PM FIELD SPECIALIST documented as of this encounter Care Teams Senior Asp Net Developer Relationship Specialty Start Date End Date Nikita Gamble PCP - General Family Medicine 05/26/20 [facility] [address] [place] [address] Demonstrator Knitting Dietitian, Registered 05/25/[address] [place] [address] Naveen Casiano MD Assigned PCP 11/16/20 [address] [place] [address] Mikki Blevins MD MD Endocrinology, 05/07/[address] [place] [address] Diabetes, and [place], [place] Metabolism [phone] Mikki Blevins MD Assigned Endocrinology 08/02/21 [facility] [place] [address] Mindi Llanes Assigned Surgical 09/26/21 PRETTY Macias Provider [address] [facility] [address] [place] [id number] documented as of this encounter
--- OUTSIDE RECORDS SUMMARY | 2022-02-09 13:17 | XMS_ITS | Encounter Summary ---
:1965 Author Organization [place] Address [facility] 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 documented as of this encounter Plan of Treatment Not on filedocumented as of this encounter Visit Diagnoses Not on filedocumented in this encounter Additional Health Concerns Assessment Noted Time PHQ-9 Depression Total Score: 0 02/26/2020 1:30 PM LEAD DESIGNER documented as of this encounter Care Teams Creative Writing Teacher Relationship Specialty Start Date End Date Nikita Gamble PCP - General Family Medicine 05/26/20 [facility] [address] [place] [address] Safety Physician Dietitian, Registered 05/25/18 [facility] [place] [address] Naveen Casiano MD Assigned PCP 11/16/20 [address] [facility] [place], [place] [id number] Harlan Lin Assigned Endocrinology 12/07/20 08/01/21 [place] [facility] Provider NO INFO AVAILABLE Mikki Blevins MD MD Endocrinology, 05/07/21 [address] [facility] Diabetes, and [place], [place] Metabolism [phone] documented as of this encounter
--- OUTSIDE RECORDS SUMMARY | 2022-02-09 13:17 | XMS_ITS | Encounter Summary ---
:1965 Author Organization [place] Address [address] [facility] [place] [address] Care Team Providers Name Role Phone Jocelyn Davidson Bran YANEZ Unavailable Nikita Gamble Primary Care Provider Naveen Casiano MD Unavailable Mikki Blevins MD Unavailable Mikki Blevins MD Unavailable Reason for Visit Reason Onset Date Comments Left Message To Call 09/21/2021 Encounter Details Date Type Department Care Team Description 09/21/2021 Telephone [facility] Mindi Llanes Left Me ssage To Call Surgical Weight Loss Leah Macias [address] [place] [address] [place] [address] [phone] Social History Tobacco Use Types Packs/Day Years Used Date Smoking Tobacco: Never Smokeless Tobacco: Never Alcohol Use Standard Drinks/Week Comments Yes 0 (1 standard drink = 0.6 oz pure alcoho l) rare Sex Assigned at Date Recorded Female 03/04/2020 12:[address] documented as of this encounter Miscellaneous Notes [...] Depression Total Score: 0 02/26/2020 1:[address] documented as of this encounter Care Teams Medical Doctor Md Relationship Specialty Start Date End Date Nikita Gamble PCP - General Family Medicine 05/26/[address] Plug And Mold Finisher Dietitian, Registered 05/25/[address] [place] [address] Naveen Casiano MD Assigned PCP 11/16/20 [address] [place] [address] Mikki Blevins MD MD Endocrinology, 05/07/21 [address] [facility] Diabetes, and [place], [place] Metabolism [phone] Mikki Blevins MD Assigned Endocrinology 08/02/21 [facility] Provider CLINIC [place], [place] [id number] documented as of this encounter
--- OUTSIDE RECORDS SUMMARY | 2022-02-09 13:17 | XMS_ITS | Encounter Summary ---
:1965 Author Organization [place] Address [address] [facility] [place] [address] Care Team Providers Name Role Phone Jocelyn Davidson RENATA Unavailable Nikita Gamble Primary Care Provider Naveen Casiano MD Unavailable Mikki Blevins MD Unavailable Mikki Blevins MD Unavailable Reason for Referral Diagnostic Imaging NM (Routine) - Pending Review Specialty Diagnoses / Procedures Referred By Contact Refer red To Contact Diagnoses Gastroparesis Mikki Blevins MD Procedures [place] [address] Referral ID Status Reason Start Date Expiration Date Visits V isits Requested Authorized [id number] Pending 09/17/2021 09/17/2022 1 1 Review Encounter Details Date Type Department Care Team Description 09/17/2021 Orders Only [facility] Mikki Blevins MD Gastroparesis (Primary Specialty Clinic [facility] Dx) 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 encounter Progress Notes Mikki Blevins MD - 09/17/2021 11:45 AM CDT Called to review Ozempic dosing Significant life stressors over past few weeks- Fired from work at [employer] No BM x8 days Bloated/looked like I was Taking miralax/senna--taking 3 senna/doculax nightly Added Milk of Magnesia and now having diarrhea No appetite x2 days, able to eat last night and stomach is feeling normal today ?gastroparesis, usually has low appetite-- for example eat dinner and feels that is belching up dinner next morning Plan: Will stop Ozempic Has upcoming appt with [facility] on 09/22 Will order gastric emptying study for formal eval of gastroparesis, consider referral to GI - For now, discussed eating small, frequent meals in place of large meals Patient in agreement with plan Keep regular follow-up end September documented in this encounter Plan of Treatment Scheduled Orders Name Type Priority Associated Diagnoses Order S chedule NM Gastric Emptying Imaging Routine Gastroparesis Expecte d: 09/17/2021 (Approximate), Expires: 09/17/2022 documented as of this encounter Visit Diagnoses Diagnosis Gastroparesis - Primary documented in this encounter Additional Health Concerns Assessment Noted Time PHQ-9 Depression Total Score: 0 02/26/2020 1:30 PM TRANSPORT TRUCK DRIVER documented as of this encounter Care Teams Public Safety Dispatcher Relationship Specialty Start Date End Date Nikita Gamble PCP - General Family Medicine 05/26/20 [facility] [address] [place] [address] Building Maintenance Superintendent Dietitian, Registered 05/25/18 [facility] [address] [place] [address] SHARAN CARSON [id number] Naveen Casiano MD Assigned PCP 11/16/20 [address] [place], [place] [phone] Mikki Blevins MD MD Endocrinology, 05/07/[address] [facility] Diabetes, and [place], [place] Metabolism [address] Mikki Blevins MD Assigned Endocrinology 08/02/21 [facility] [place] [address] documented as of this encounter
--- OUTSIDE RECORDS SUMMARY | 2022-02-09 13:17 | XMS_ITS | Encounter Summary ---
:1965 Author Organization [place] Address [address] [place] [address] Care Team Providers Name Role Phone StuartJocelyn [...] stage 3a (H) Mindi Llanes PA-C [address] [facility] [address] [place] [address] Referral ID Status Reason Start Date Expiration Date Visits V isits Requested Authorized [id number] Pending 09/22/2021 09/22/2022 1 1 Review Reason [...] (H) Mikki Blevins MD Weight [facility] Clinic [facility] [address] [place] [address] [address] [place] [address] Phone: Fax: Referral ID Status Reason Start Date Expiration Date Visits V isits Requested Authorized [id number] Pending 07/28/2021 07/28/2022 1 1 Review Encounter Details Date Type Department Care Team Description 09/22/2021 Virtual Visit [facility] Mindi Llanes Class 2 severe obesity due to excess calories with serious comorbidity and body mass index (BMI) of 36.0 to 36.9 in adult (H) (Primary Dx); Surgical Weight Loss Leah Macias-Ashlee Type 1 diabetes mellitus with complicati ons (H); [facility] [place] [address] Chronic kidney disease, stag e 3a (H); [address] [facility] [address] [address] Benign essential hypertension; [place] [address] Acquired hypothyroidism; [address] Uncontrolled type 1 diabetes with renal manifestation (H); [place] [address] (Work) Migraine with status migrainosus, not in tractable, unspecified migraine type [phone] Social History Tobacco Use Types Packs/Day Years Used Date Smoking Tobacco: Never Smokeless Tobacco: Never Alcohol Use Standard Drinks/Week Comments Yes 0 (1 standard drink = 0.6 oz pure alcoho l) rare Sex Assigned at Date Recorded Female 03/04/2020 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 [email or web address] Goals: Add in short bursts of activity throughout you day. FOLLOW-UP: Please call [phone] to schedule your next visit in 8-10 [...] be resent by: Text to cell phone: [phone] Will anyone else be joining your video visit? No Video-Visit Details Type of service: Video Visit Video Start Time: 9:30 AM Video End Time:10:30 AM Originating Location (pt. Location): Home Distant Location (provider location): [facility] [place] Platform used for Video Visit: [facility] Medical Weight Management Consult PATIENT: Marnie Duvall [...] NUTRITION REFERRAL PROGRAM OVERVIEW Reviewed options at [place] [facility] including provider visits, ammonium nitrate neutralizer, 24 week healthylifestyle program, health coaching, food supplements, Get Moving program, and psychological support.All questions about weight loss program were answered. SURGICAL WEIGHT LOSS Option presented given pt BMI and current comorbid conditions. Website for bariatric online information session provided. Pt will review at home and we will discuss at our follow up visit. [email or web address] MEDICATIONS: We discussed healthy habits to assist [...] throughout you day. Follow up: Please call [phone] to schedule your next visit in 8-10 [...] food do you typically eat? Cup of vietnamese yogurt with blueberries and suger free jellos,angerine [...] Once a Week Eat fast food (like [employer], [employer], [employer]). Never Eat at a buffet or sit-down [...] hours Using T:Connect: Yes Dexcom Sharing Code: [id number] ??? insulin syringe-needle U-100 (30G X 1/2 [...] - 09/22/2021 10:37 AM CDTAssociated Problem(s): Class 1 obesity due to excess calories without serious comorbidity with body mass index (BMI) of 34.0 to 34.9 in adult 09/22/2021 [facility] initial Wt 265# Phentermine Start MKD documented in this encounter Plan of Treatment Scheduled Referrals Name Type Priority Associated Diagnoses [...] Depression Total Score: 0 02/26/2020 1:30 PM CARBURETOR REBUILDER documented as of this encounter Care Teams Desk Top Publisher Relationship Specialty Start Date End Date Tony Ackerman PCP - General Family Medicine 05/26/20 [facility] [address] [place] [address] Plasma Processing Centrifuge Operator Dietitian, Registered 05/25/18 [facility] [place] [address] Naveen Casiano MD Assigned PCP 11/16/20 [address] [place], [place] [id number] Mikki Blevins MD MD Endocrinology, 05/07/21 [address] [facility] Diabetes, and [place], [place] Metabolism [address] Mikki Blevins MD Assigned Endocrinology 08/02/21 [facility] [place] [address] documented as of this encounter
--- OUTSIDE RECORDS SUMMARY | 2022-02-09 13:17 | XMS_ITS | Encounter Summary ---
:1965 Author Organization [place] Address [address] [facility] [place] [address] Care Team Providers Name Role Phone Jocelyn Davidson RENATA Unavailable Nikita Gamble Primary Care Provider Naveen Casiano MD Unavailable Mikki Blevins MD Unavailable Mikki Blevins MD Unavailable Mindi Llanes PA-C Unavailable Reason for Visit Reason Onset Date Comments Medication Question 09/14/2021 OZEMPIC Encounter Details Date Type Department Care Team Description 09/14/2021 Telephone [facility] Mikki Blevins MD Medication Question Specialty Clinic Adithya na [place] [facility] (OZEMPIC) [address] [address] [place] [address] [phone] Social History Tobacco Use Types Packs/Day Years Used Date Smoking Tobacco: Never Smokeless Tobacco: Never Alcohol Use Standard Drinks/Week Comments Yes 0 (1 standard drink = 0.6 oz pure alcoho l) rare Sex Assigned at Date Recorded 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 - [place] [address] What on the order needs clarification? Pt [...] Depression Total Score: 0 02/26/2020 1:30 PM COLLAR SHAPER OPERATOR documented as of this encounter Care Teams Nurse Practitioner Manager Relationship Specialty Start Date End Date Nikita Gamble PCP - General Family Medicine 05/26/20 [facility] [address] [place] [address] Stave Grader Dietitian, Registered 05/25/[address] [place] [address] Naveen Casiano MD Assigned PCP 11/16/20 [address] [place] [address] Mikki Blevins MD MD Endocrinology, 05/07/21 909 [facility] Diabetes, and [place], [place] Metabolism [address] Mikki Blevins MD Assigned Endocrinology 08/02/21 [facility] [place] [address] Minid Llanes Assigned Surgical 09/26/21 PRETTY Macias Provider [address] [place] [address] documented as of this encounter
--- OUTSIDE RECORDS SUMMARY | 2022-02-09 13:17 | XMS_ITS | Encounter Summary ---
:1965 Author Organization [place] Address [address] [facility] [place] [address] Care Team Providers Name Role Phone Jocelyn Davidson RENATA Unavailable Nikita Gamble Primary Care Provider Naveen Casiano MD Unavailable Mikki Blevins MD Unavailable Mikki Blevins MD Unavailable Mindi Llanes PA-C Unavailable Reason for Visit Reason Onset Date Comments Refill Request 12/24/2021 phentermine Encounter Details Date Type Department Care Team Description 12/24/2021 Telephone [facility] Mindi Llanes Refill Request Surgical Weight Loss Leah Macias (phentermine) [address] [place] [address] [place] [address] [phone] Social History Tobacco Use Types Packs/Day Years Used Date Smoking Tobacco: Never Smokeless Tobacco: Never Alcohol Use Standard Drinks/Week Comments Yes 0 (1 standard drink = 0.6 oz pure alcoho l) rare Sex Assigned at Date Recorded Female 03/04/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 Alix Kim, MS, RD, RN Telephone Encounter - Trinidad Lamb - 12/24/2021 4:22 PM CDT Reason for Call: Medication or medication refill: Do you use a [facility]? Name of the pharmacy and phone number for the current request: [id number] [place] [phone] [place] [address] ( ) Name of the medication requested: [...] Depression Total Score: 0 02/26/2020 1:30 PM GUNCOTTON PACKER documented as of this encounter Care Teams Balance Wheel Hand Filer Relationship Specialty Start Date End Date Nikita Gamble PCP - General Family Medicine 05/26/20 [facility] [address] [place] [address] Pipe Blanks Cut Off Saw Operator Dietitian, Registered 05/25/18 [facility] [place] [address] Naveen Casiano MD Assigned PCP 11/16/20 [address] [place], [place] [phone] Mikki Blevins MD MD Endocrinology, 05/07/[address] Diabetes, and [place], [place] Metabolism [address] Mikki Blevins MD Assigned Endocrinology 08/02/21 [facility] [place], [place] [phone] Mindi Llanes Assigned Surgical 09/26/21 PRETTY Macias Provider [address] [place], [place] [address] documented as of this encounter
--- OUTSIDE RECORDS SUMMARY | 2022-02-09 13:17 | XMS_ITS | Encounter Summary ---
:1965 Author Organization [place] Address [address] [facility] [place] [address] Care Team Providers Name Role Phone Jocelyn Davidson RENATA Unavailable Nikita Gamble Primary Care Provider Naveen Casiano MD Unavailable Mikki Blevins MD Unavailable Mikki Blevins MD Unavailable Reason for Visit Reason Onset Date Comments Class 2 severe obesity with serious comorbidity and body ma No Show 09/08/2021 Encounter Details Date Type Department Care Team Description 09/08/2021 Virtual Visit [facility] Mikki Blevins MD No-show for Specialty Clinic [place] [facility] appointm ent (Primary [place] [facility] Dx) [address] [facility] [address] [address] [place] [address] [phone] Social History Tobacco Use Types Packs/Day Years Used Date Smoking Tobacco: Never Smokeless Tobacco: Never Alcohol Use Standard Drinks/Week Comments Yes 0 (1 standard drink = 0.6 oz pure alcoho l) rare Sex Assigned at Date Recorded Female 03/04/2020 12:33 PM LINE WALKER documented as of this encounter Progress Notes [...] Depression Total Score: 0 02/26/2020 1:30 PM LINE WALKER documented as of this encounter Care Teams Cake Puncher Relationship Specialty Start Date End Date Nikita Gamble PCP - General Family Medicine 05/26/20 [facility] [address] [place] [address] Engineering Program Analyst Dietitian, Registered 05/25/[address] [place] [address] Naveen Casiano MD Assigned PCP 11/16/20 [address] [place], [place] [phone] Mikki Blevins MD MD Endocrinology, 05/07/21 909 [facility] Diabetes, and [place], [place] Metabolism [address] Mikki Blevins MD Assigned Endocrinology 08/02/21 [facility] [place] [address] documented as of this encounter
--- OUTSIDE RECORDS SUMMARY | 2022-02-09 13:17 | XMS_ITS | Encounter Summary ---
:1965 Author Organization [place] Address [address] [facility] [place] [address] Care Team Providers Name Role Phone Jocelyn Davidson RENATA Unavailable Nikita Gamble Primary Care Provider Naveen Casiano MD Unavailable Mikki Blevins MD Unavailable Mikki Blevins MD Unavailable Mindi Llanes PA-C Unavailable Encounter Details Date Type Department Care Team Description 09/29/2021 Virtual Visit [facility] Surgical 3, Sh Wl Diet , RD No Show Weight Loss Clinic [address] [place] [address] Social History Tobacco Use Types Packs/Day Years Used Date Smoking Tobacco: Never Smokeless Tobacco: Never Alcohol Use Standard Drinks/Week Comments Yes 0 (1 standard drink = 0.6 oz pure alcoho l) rare Sex Assigned at Date Recorded Female 03/04/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 documented as of this encounter Progress Notes Haven Keen - 09/29/2021 8:30 AM CDT No charge/no show documented in this encounter Plan of Treatment Not on filedocumented as of this encounter Visit Diagnoses Not on filedocumented in this encounter Additional Health Concerns Assessment Noted Time PHQ-9 Depression Total Score: 0 02/26/2020 1:30 PM SYSTEMS PROGRAM MANAGER documented as of this encounter Care Teams Computator Relationship Specialty Start Date End Date Nikita Gamble PCP - General Family Medicine 05/26/20 [facility] [address] [place] [address] It Infrastructure Consultant Dietitian, Registered 05/25/18 [facility] [address] [place] [address] [place] [address] Naveen Casiano MD Assigned PCP 11/16/20 [address] [place] [address] Mikki Blevins MD MD Endocrinology, 05/07/21 909 [facility] Diabetes, and [place], [place] Metabolism [address] Mikki Blevins MD Assigned Endocrinology 08/02/21 [place] [facility] [place], [place] [phone] Mindi Llanes Assigned Surgical 09/26/21 PRETTY Macias Provider [address] [facility] [address] [place] [address] documented as of this encounter
--- OUTSIDE RECORDS SUMMARY | 2022-02-09 13:17 | XMS_ITS | Encounter Summary ---
:1965 Author Organization [place] Address [address] [place] [address] Care Team Providers Name Role Phone Jocelyn [...] (H) Mikki Blevins MD Weight [facility] Clinic [facility] [address] [place] [address] [address] [place] [address] Phone: Fax: Referral ID Status Reason Start Date Expiration Date Visits V isits Requested Authorized [id number] Pending 07/28/2021 07/28/2022 1 1 Review Reason for Visit Reason Comments New Patient Diabetes Encounter Details Date Type Department Care Team Description 07/28/2021 Virtual Visit [facility] Mikki Blevins MD Class 2 severe obesity with serious chucho rbidity and body mass index (BMI) of 36.0 to 36.9 in adult, unspecified obesity type (H) (Primary Dx); Specialty [facility] Morbid o besity (H); [facility] Type 1 diabetes mellitus with stage 3a c hronic kidney disease (H); [address] [facility] [place] 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 Location): [place], [place] Distant Location (provider location): Home Platform used for Video Visit: MD Marnie Greer is a 56 year old yo female who presents today for evaluation of diabetes melltius type 1 via a billable video visit. Last seen by Dr Lin 12/03/2020. 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 [...] Depression Total Score: 0 02/26/2020 1:30 PM COATING MACHINE FEEDER documented as of this encounter Care Teams Guitar Repair Technician Relationship Specialty Start Date End Date Nikita Gamble PCP - General Family Medicine 05/26/20 [facility] [address] [place] [address] Family Program Specialist Dietitian, Registered 05/25/18 [facility] [place] [address] Naveen Casiano MD Assigned PCP 11/16/20 [address] [place], [place] [phone] Harlan Lin Assigned Endocrinology 12/07/20 08/01/21 MD [facility] Provider NO INFO AVAILABLE Mikki Blevins MD MD Endocrinology, 05/07/21 909 [facility] Diabetes, and [place], [place] Metabolism [address] documented as of this encounter
--- OUTSIDE RECORDS SUMMARY | 2022-02-09 13:17 | XMS_ITS | Encounter Summary ---
:1965 Author Organization [place] Address [address] [facility] [place] [address] Care Team Providers Name Role Phone Jocelyn Davidson RENATA Unavailable Nikita Gamble Primary Care Provider Naveen Casiano MD Unavailable Mikki Blevins MD Unavailable Mikki Blevins MD Unavailable Mindi Llanes PA-C Unavailable Reason for Visit Reason Comments Medication Refill Encounter Details Date Type Department Care Team Description 12/20/2021 Refill [facility] Surgical Thuan Llanes Medication Refill Weight Loss Clinic E alvaro Macias PA-C [address] [facility] out [address] [facility] [address] [place] [address] [place] [address] [phone] Social History Tobacco Use Types Packs/Day Years Used Date Smoking Tobacco: Never Smokeless Tobacco: Never Alcohol Use Standard Drinks/Week Comments Yes 0 (1 standard drink = 0.6 oz pure alcoho l) rare Sex Assigned at Date Recorded Female 03/04/2020 12: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 documented as of this encounter Miscellaneous [...] Depression Total Score: 0 02/26/2020 1:30 PM FOREIGN LANGUAGES PROFESSOR documented as of this encounter Care Teams Digital Sales Planner Relationship Specialty Start Date End Date Nikita Gamble PCP - General Family Medicine 05/26/20 [facility] [address] [place] [address] Hedge Fund Accountant Dietitian, Registered 05/25/18 [facility] [place] [address] Naveen Casiano MD Assigned PCP 11/16/[address] [place] [address] Mikki Blevins MD MD Endocrinology, 05/07/21 909 [facility] Diabetes, and [place], [place] Metabolism [address] Mikki Blevins MD Assigned Endocrinology 08/02/21 [facility] Provider CLINIC [place], [place] [id number] Mindi Llanes Assigned Surgical 09/26/21 PRETTY Macias Provider [address] [place], [place] [address] documented as of this encounter
--- OUTSIDE RECORDS SUMMARY | 2022-02-09 13:17 | XMS_ITS | Encounter Summary ---
:1965 Author Organization [place] Address [address] [facility] [place] [address] Care Team Providers Name Role Phone Jocelyn Davidson RENATA Unavailable Nikita Gamble Primary Care Provider Naveen Casiano MD Unavailable Mikki Blevins MD Unavailable Mikki Blevins MD Unavailable Mindi Llanes PA-C Unavailable Reason for Visit Reason Comments Medication Refill Encounter Details Date Type Department Care Team Description 11/09/2021 Refill [facility] Mikki Blevins MD Medication Refill [facility] SPECIALTY CLINIC [address] [place] [address] [place], [place] [phone] (W ork) [address] [phone] Social History Tobacco Use Types Packs/Day Years Used Date Smoking Tobacco: Never Smokeless Tobacco: Never Alcohol Use Standard Drinks/Week Comments Yes 0 (1 standard drink = 0.6 oz pure alcoho l) rare Sex Assigned at Date Recorded Female 03/04/2020 12:33 PM 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 [address] [place] [address] [place] [address] Naveen Casiano MD Assigned PCP 11/16/20 [address] [place] [address] Mikki Blevins MD MD Endocrinology, 05/07/21 909 [facility] Diabetes, and [place], [place] Metabolism [address] Mikki Blevins MD Assigned Endocrinology 08/02/21 [facility] [place], [place] [address] Mindi Llanes Assigned Surgical 09/26/21 PRETTY Macias Provider [address] [facility] [address] [place], [place] [address] documented as of this encounter
--- OUTSIDE RECORDS SUMMARY | 2022-02-09 13:18 | XMS_ITS | Encounter Summary ---
:1965 Author Organization [place] Address [facility] [place] [address] Care Team Providers Name Role Phone Jocelyn Davidson RENATA Unavailable Tamar Murphy APRN SOUND RECORDIST Unavailable Nikita Gamble Primary Care Provider Reason for Visit Reason Onset Date Comments Orders 10/22/2020 labs Encounter Details Date Type Department Care Team Description 10/22/2020 Telephone [facility] Naveed Lin Orders (labs) Kenny Banegas MD [address] [facility] NO INFO AVAILABLE [place] [address] Social History Tobacco Use Types Packs/Day Years Used Date Smoking Tobacco: Never Smokeless Tobacco: Never Alcohol Use Standard Drinks/Week Comments Yes 0 (1 standard drink = 0.6 oz pure alcoho l) rare Sex Assigned at Date Recorded Female 03/04/2020 12:33 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 Pt previously seen by Dr. Annette Alvarez. Please send ListRunner message when pt can schedule labs. Action Taken: Message routed to: Other: Endo Travel Screening: Not Applicable documented in this encounter Plan of Treatment Not on filedocumented as of this encounter Results (ABNORMAL) Hemoglobin [...] City/State/ZIP Code Phon [place] [address] [phone] [facility] [address] [facility] (no room number, 1st floor of clinic) CR [facility] [place], [place] [phone] [facility] [phone] [address] [facility] Lab (no room number, 1st floor of clinic) documented in this encounter Visit Diagnoses Diagnosis Type 1 diabetes mellitus (H) - Primary Type I (juvenile type) diabetes mellitus without mention of complication, not stated as uncontrolled documented in this encounter Additional Health Concerns Assessment Noted Time PHQ-9 Depression Total Score: 0 02/26/2020 1:30 PM INTEGRATION ANALYST documented as of this encounter Care Teams Lead Housekeeper Relationship Specialty Start Date End Date Nikita Gamble PCP - General Family Medicine 05/26/20 [facility] [address] [place] [address] Wagon Person Dietitian, Registered 05/25/18 [facility] [place] [address] Tamar Murphy APRN SOUND RECORDIST Assigned PCP 02/08/20 11/15/20 [address] [place] [address] documented as of this encounter
--- OUTSIDE RECORDS SUMMARY | 2022-02-09 13:18 | XMS_ITS | Encounter Summary ---
:1965 Author Organization [place] Address [facility] 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 FOOD BEVERAGE COVID-19 Exposure Response Date Recorded In the [...] Depression Total Score: 0 02/26/2020 1:30 PM MANAGER FOOD BEVERAGE documented as of this encounter Care Teams Tube Pusher Relationship Specialty Start Date End Date Nikita Gamble PCP - General Family Medicine 05/26/20 [facility] [address] [place] [address] Outside Deliverer Dietitian, Registered 05/25/18 [facility] [place] [address] Naveen Casiano MD Assigned PCP 11/16/20 [address] [place] [address] documented as of this encounter
--- OUTSIDE RECORDS SUMMARY | 2022-02-09 13:18 | XMS_ITS | Encounter Summary ---
:1965 Author Organization [place] Address [facility] access hospital0 [facility] [place] [address] Care Team Providers Name Role Phone Jocelyn Davidson RENATA Unavailable Nikita Gamble Primary Care Provider Naveen Casiano MD Unavailable Harlan Lin MD Unavailable Unavailable Mikki Blevins MD Unavailable Reason for Visit Reason Comments Medication Refill Encounter Details Date Type Department Care Team Description 06/27/2021 Refill [facility] Naveed Lin [place] [address] [facility] [place] [address] Social History Tobacco Use Types Packs/Day Years Used Date Smoking Tobacco: Never Smokeless Tobacco: Never Alcohol Use Standard Drinks/Week Comments Yes 0 (1 standard drink = 0.6 oz pure alcoho l) rare Sex Assigned at Date Recorded Female 03/04/2020 12:33 PM PORT TRAFFIC MANAGER documented as of this encounter Miscellaneous [...] Depression Total Score: 0 02/26/2020 1:30 PM PORT TRAFFIC MANAGER documented as of this encounter Care Teams Psychiatry Resident Relationship Specialty Start Date End Date Nikita Gamble PCP - General Family Medicine 05/26/20 [facility] [address] [place] [address] Milk Processing Worker Dietitian, Registered 05/25/[address] [place] [address] Naveen Casiano MD Assigned PCP 11/16/20 [address] [place], [place] [phone] Harlan Lin Assigned Endocrinology 12/07/20 08/01/21 MD [place] Provider NO INFO AVAILABLE Mikki Blevins MD MD Endocrinology, 05/07/21 909 [facility] Diabetes, and [place], [place] Metabolism [address] documented as of this encounter
--- OUTSIDE RECORDS SUMMARY | 2022-02-09 13:18 | XMS_ITS | Encounter Summary ---
:1965 Author Organization [place] Address [address] [facility] [place] [address] Care Team Providers Name Role Phone Jocelyn Davidson RENATA Unavailable Nikita Gamble Primary Care Provider Naveen Casiano MD Unavailable Harlan Lin MD Unavailable Unavailable Encounter Details Date Type Department Care Team Description 01/03/2021 Lab [facility] Naveen Casiano MD [facility] [address] [facility] osteoarthritis of left knee [address] [place] [phone] Social History Tobacco Use Types Packs/Day Years Used Date Smoking Tobacco: Never Smokeless Tobacco: Never Alcohol Use Standard Drinks/Week Comments Yes 0 (1 standard drink = 0.6 oz pure alcoho l) rare Sex Assigned at Date Recorded Female 03/04/2020 12:33 PM 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 A dditional information about this [...] COVID-19. This test was validated by the [facility]. This lab oratory is certified under the Clinical Laboratory Improvement Amen dments of 1987 (CLIA-88) as qualified to perform high complexity lab oratory testing. Naveen Casiano MD LAB - MICRO GENERAL ORDERABL ES Performing Organization Address City/State/ZIP Code Phon e Number [facility] [place] [phone] Diag. Lab [address] [facility], Room D297 [facility] Infectious [place], [place] [phone] Diseases Diagnostic [phone], [facility] Lab (IDDL) [address] [facility], Room D297 documented in this encounter Visit Diagnoses Diagnosis Post-traumatic osteoarthritis of left kn ee Secondary localized osteoarthrosis, lowe r leg documented in this encounter Additional Health Concerns Assessment Noted Time PHQ-9 Depression Total Score: 0 02/26/2020 1:30 PM BRIDGE CREW MEMBER documented as of this encounter Care Teams Social Work Professor Relationship Specialty Start Date End Date Nikita Gamble PCP - General Family Medicine 05/26/20 [facility] [address] [place] [address] Chief Commercial Officer Dietitian, Registered 05/25/18 [facility] [address] [place] [address] [address] [place] [id number] Naveen Casiano MD Assigned PCP 11/16/20 [address] [place], [place] [phone] Harlan Lin Assigned Endocrinology 12/07/20 08/01/21 MD [place] Provider NO INFO AVAILABLE documented as of this encounter
--- OUTSIDE RECORDS SUMMARY | 2022-02-09 13:18 | XMS_ITS | Encounter Summary ---
:1965 Author Organization [place] Address [address] [facility] [place] [address] Care Team Providers Name Role Phone Annette Alvarez KIM HOMICIDE SQUAD SERGEANT Unavailable Jocelyn Davidson RD Unavailable Tamar Murphy APRN HOMICIDE SQUAD SERGEANT Unavailable Nikita Gamble Primary Care Provider Encounter Details Date Type Department Care Team Description 09/04/2020 Virtual Visit [facility] Kalpesh Salmon, Back muscle spasm Clinic [place] PRETTY (Primary Dx) [address] [place] [id number] [phone] Social History Tobacco Use Types Packs/Day Years Used Date Smoking Tobacco: Never Smokeless Tobacco: Never Alcohol Use Standard Drinks/Week Comments Yes 0 (1 standard drink = 0.6 oz pure alcoho l) rare Sex Assigned at Date Recorded Female 03/04/2020 12:33 PM GLOVE PARTS CUTTER documented as of this encounter Progress Notes [...] No follow-ups on file. Kalpesh Salmon PA-C [facility] PRATIBHA Dye is a 55 [...] this encounter Miscellaneous Notes Addendum Note - Kalepsh Salmon PA-C - 09/04/2020 5:30 PM CDT Addended by: KALPESH SALMON on: 09/26/2020 11:03 AM Modules accepted: Orders documented in this encounter Plan of Treatment Not on filedocumented as of this encounter Visit Diagnoses Diagnosis Back muscle spasm - Primary Other symptoms referable to back documented in this encounter Additional Health Concerns Assessment Noted Time PHQ-9 Depression Total Score: 0 02/26/2020 1:30 PM GLOVE PARTS CUTTER documented as of this encounter Care Teams Lab Technician Relationship Specialty Start Date End Date Nikita Gamble PCP - General Family Medicine 05/26/20 [facility] [address] [place] [address] Annette Alvarez, Nurse Practitioner Clinical Nurse 03/22/17 10/21/20 PROBATION MANAGER HOMICIDE SQUAD SERGEANT Specialist [address] [place], [place] [phone] Jocelyn Davidson RD Swimming Pool Serviceperson Dietitian, Registered 05/25/18 [facility] [place] [address] Tamar Murphy APRN Assigned PCP 02/08/20 1 HOMICIDE SQUAD SERGEANT [address] [place], [place] [phone] documented as of this encounter
--- OUTSIDE RECORDS SUMMARY | 2022-02-09 13:18 | XMS_ITS | Encounter Summary ---
:1965 Author Organization [place] Address [facility] [place] [address] Care Team Providers Name Role Phone Jocelyn [...] at Date Recorded Female 03/04/2020 12:33 PM FOSTER CARE WORKER COVID-19 Exposure Response Date Recorded In [...] Depression Total Score: 0 02/26/2020 1:30 PM FOSTER CARE WORKER documented as of this encounter Care Teams Plate Cutter Relationship Specialty Start Date End Date Nikita Gamble PCP - General Family Medicine 05/26/20 [facility] [address] [place] [address] Die Cast Technician Dietitian, Registered 05/25/18 [facility] [place] [address] Naveen Casiano MD Assigned PCP 11/16/20 [address] [place] [address] documented as of this encounter
--- OUTSIDE RECORDS SUMMARY | 2022-02-09 13:18 | XMS_ITS | Encounter Summary ---
:1965 Author Organization [place] Address [address] [place] [address]. [place] [address] Care Team Providers Name Role Phone Jocelyn Davidson RENATA Unavailable Nikita Gamble Primary Care Provider Naveen Casiano MD Unavailable Harlan Lin MD Unavailable Unavailable Encounter Details Date Type Department Care Team Description 12/05/2020 Medical Correspondence [facility] Scan, PUMP PRESCRIPTION Health Info Mgmt Non-Provider ORDER DANIELLE [place] [facility] DIABETES CARE [address] [place] [phone] Social History Tobacco Use Types Packs/Day Years Used Date Smoking Tobacco: Never Smokeless Tobacco: Never Alcohol Use Standard Drinks/Week Comments Yes 0 (1 standard drink = 0.6 oz pure alcoho l) rare Sex Assigned at Date Recorded Female 03/04/2020 12:33 PM PERSONAL BANKER COVID-19 Exposure Response Date Recorded In the [...] Depression Total Score: 0 02/26/2020 1:30 PM PERSONAL BANKER documented as of this encounter Care Teams Psychologist Private Practice Relationship Specialty Start Date End Date Nikita Gamble PCP - General Family Medicine 05/26/20 [facility] [address] [place] [address] Research Hydrologist Dietitian, Registered 05/25/[address] [place] [address] Naveen Casiano MD Assigned PCP 11/16/20 [address] [place] [address] Harlan Lin Assigned Endocrinology 12/07/20 08/01/21 MD [place] Provider NO INFO AVAILABLE documented as of this encounter
--- OUTSIDE RECORDS SUMMARY | 2022-02-09 13:18 | XMS_ITS | Encounter Summary ---
:1965 Author Organization [place] Address [address] [facility] [place] [address] Care Team Providers Name Role Phone Annette Alvarez APRN ENGINE ROOM OPERATOR Unavailable [phone] Unavailable Tamar Murphy SIGNAL SYSTEM TESTING MAINTAINER ENGINE ROOM OPERATOR Unavailable Nikita Gamble Primary Care Provider Naveen Casiano MD Unavailable Harlan Lin MD Unavailable Unavailable Mikki Blevins MD Unavailable Mikki Blevins MD Unavailable Mindi Llanes PA-C Unavailable Reason for Visit Reason Comments Medication Refill Encounter Details Date Type Department Care Team Description 06/05/2020 Refill [facility] Annette Alvarez, Medication Refill [place] SIGNAL SYSTEM TESTING MAINTAINER ENGINE ROOM OPERATOR [address] [place] [phone] [place], [place] [phone] [place] [address] (Wo rk) Social History Tobacco Use Types Packs/Day Years Used Date Smoking Tobacco: Never Smokeless Tobacco: Never Alcohol Use Standard Drinks/Week Comments Yes 0 (1 standard drink = 0.6 oz pure alcoho l) rare Sex Assigned at Date Recorded Female 03/04/2020 12:33 PM SURGICAL APPLIANCES SALESPERSON documented as of this encounter Miscellaneous Notes Telephone Encounter - Jasmyn Lee RN - 06/05/2020 11:52 AM CST Prescription approved per [facility] Refill Protocol. Jasmyn Lee RN 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 documented in this encounter Additional Health Concerns Assessment Noted Time PHQ-9 Depression Total Score: 0 02/26/2020 1:30 PM SURGICAL APPLIANCES SALESPERSON documented as of this encounter Care Teams Assistant District Attorney Relationship Specialty Start Date End Date Nikita Gamble PCP - General Family Medicine 05/26/20 [facility] [address] [place] [address] Annette Alvarez, Nurse Practitioner Clinical Nurse 03/22/17 10/21/20 SIGNAL SYSTEM TESTING MAINTAINER ENGINE ROOM OPERATOR Specialist [address] [place] [address] Wire Border Assembler Dietitian, Registered 05/25/18 [facility] - [address] [place] [address] Tamar Murphy, Assigned PCP 02/08/20 11/15/20 SIGNAL SYSTEM TESTING MAINTAINER ENGINE ROOM OPERATOR [address] [place] [address] Naveen Casiano MD Assigned PCP 11/16/20 [address] [place], [place] [phone] Harlan Lin Assigned Endocrinology 12/07/20 08/01/21 MD [place] Provider NO INFO AVAILABLE Mikki Blevins MD MD Endocrinology, 05/07/[address] [place] [address] Diabetes, and [place], [place] Metabolism [address] Mikki Blevins MD Assigned Endocrinology 08/02/21 [facility] Provider [facility] [place], [place] [phone] Mindi Llanes Assigned Surgical 09/26/21 [facility] [place] Provider [address] [place] [address] documented as of this encounter
--- OUTSIDE RECORDS SUMMARY | 2022-02-09 13:18 | XMS_ITS | Encounter Summary ---
:1965 Author Organization [place] Address [facility] [place] [address] Care Team Providers Name Role Phone Annette Alvraez KIM LINING MAKER Unavailable [phone] Unavailable Tamar Murphy APRN LINING MAKER Unavailable Nikita Gamble Primary Care Provider Encounter Details Date Type Department Care Team Description 10/15/2020 Travel Social History Tobacco Use Types Packs/Day Years Used Date Smoking Tobacco: Never Smokeless Tobacco: Never Alcohol Use Standard Drinks/Week Comments Yes 0 (1 standard drink = 0.6 oz pure alcoho l) rare Sex Assigned at Date Recorded Female 03/04/2020 12:33 PM RN FIRST ASSISTANT COVID-19 Exposure Response Date Recorded In [...] Depression Total Score: 0 02/26/2020 1:30 PM RN FIRST ASSISTANT documented as of this encounter Care Teams Senior Game Developer Relationship Specialty Start Date End Date Nikita Gamble PCP - General Family Medicine 05/26/[address] [phone] Annette Alvarez, Nurse Practitioner Clinical Nurse 03/22/17 10/21/20 OIL REFINER LINING MAKER Specialist [address] [place] [address] Development Planner Dietitian, Registered 05/25/18 [facility] [address] [place] [address] [address] [place] [id number] Tamar Murphy, OIL REFINER Assigned PCP 02/08/20 1 LINING MAKER [address] [place], [place] [phone] documented as of this encounter
--- OUTSIDE RECORDS SUMMARY | 2022-02-09 13:18 | XMS_ITS | Encounter Summary ---
:1965 Author Organization [place] Address [address] [place] [address] Care Team Providers Name Role Phone Annette Alvarez KIM LEAD ELECTRICAL CONTROLS ENGINEER Unavailable [phone] Unavailable Tamar Murphy APRN [place] ELECTRICAL CONTROLS ENGINEER Unavailable Nikita Gamble Primary Care Provider Reason for Visit Reason Onset Date Comments Panel Management 06/26/2020 Encounter Details Date Type Department Care Team Description 06/26/2020 [facility] Tamar Murphy APRN Panel Management [facility] [address] [address] [phone] (Wo rk) Social History Tobacco Use Types Packs/Day Years Used Date Smoking Tobacco: Never Smokeless Tobacco: Never Alcohol Use Standard Drinks/Week Comments Yes 0 (1 standard drink = 0.6 oz pure alcoho l) rare Sex Assigned at Date Recorded Female 03/04/2020 12:33 PM WELL DRILL OPERATOR HELPER CABLE TOOL documented as of this encounter Miscellaneous Notes [...] Depression Total Score: 0 02/26/2020 1:30 PM WELL DRILL OPERATOR HELPER CABLE TOOL documented as of this encounter Care Teams Welder Metal Fab Relationship Specialty Start Date End Date Nikita Gamble PCP - General Family Medicine 05/26/20 [facility] [address] [place] [address] Annette Alvarez, Nurse Practitioner Clinical Nurse 03/22/17 10/21/20 SINGLE RESOURCE BOSS [place] ELECTRICAL CONTROLS ENGINEER Specialist [address] [place], [place] [phone] Jocelyn Davidson RD Release Engineer Dietitian, Registered 05/25/18 [facility] [address] [place] [address] [place] [address] Tamar Murphy APRN Assigned PCP 02/08/20 1 [place] ELECTRICAL CONTROLS ENGINEER [address] [place] [address] documented as of this encounter
--- OUTSIDE RECORDS SUMMARY | 2022-02-09 13:18 | XMS_ITS | Encounter Summary ---
:1965 Author Organization [place] Address [address] [place] [address]. [place] [address] Care Team Providers Name Role Phone Annette Alvarez MEDICAL BILLING AND CODING SPECIALIST ANODE WORKER Unavailable [phone] Goran Lloyd Primary Care Provider Jocelyn Davidson RD Unavailable Tamar Murphy MEDICAL BILLING AND CODING SPECIALIST ANODE WORKER Unavailable Encounter Details Date Type Department Care Team Description 03/05/2020 Travel Social History Tobacco Use Types Packs/Day Years Used Date Smoking Tobacco: Never Smokeless Tobacco: Never Alcohol Use Standard Drinks/Week Comments Yes 0 (1 standard drink = 0.6 oz pure alcoho l) rare Sex Assigned at Date Recorded Female 03/04/2020 12:33 PM FLAG SIGNALMAN COVID-19 Exposure Response Date Recorded In the last month, have you been in contact with No / Unsure 03/05/2020 11:41 AM FLAG SIGNALMAN someone who was confirmed or suspected to have Coronavirus / COVID-19? documented as of this encounter Plan of Treatment Not on filedocumented as of this encounter Visit Diagnoses Not on filedocumented in this encounter Additional Health Concerns Assessment Noted Time PHQ-9 Depression Total Score: 0 02/26/2020 1:30 PM FLAG SIGNALMAN documented as of this encounter Care Teams Life Insurance Actuary Relationship Specialty Start Date End Date Goran Lloyd PCP - General Family Practice 12/29/17 05/21/[address] [address] Annette Alvarez, Nurse Practitioner Clinical Nurse 03/22/17 10/21/20 MEDICAL BILLING AND CODING SPECIALIST ANODE WORKER Specialist [address] [place] [address] Garment Patternmaker Dietitian, Registered 05/25/18 [facility] [place] [facility] [address] [place] [phone] Tamar Murphy, MEDICAL BILLING AND CODING SPECIALIST Assigned PCP 02/08/20 1 ANODE WORKER [address] [place], [place] [phone] documented as of this encounter
--- OUTSIDE RECORDS SUMMARY | 2022-02-09 13:18 | XMS_ITS | Encounter Summary ---
:1965 Author Organization [place] Address [facility] [place] [address] Care Team Providers Name Role Phone Jocelyn [...] Date Recorded Female 03/04/2020 12:33 PM SOLAR POWER INSTALLER COVID-19 Exposure Response Date Recorded In the [...] Total Score: 0 02/26/2020 1:30 PM SOLAR POWER INSTALLER documented as of this encounter Care Teams Financial Coordinator Relationship Specialty Start Date End Date Nikita Gamble PCP - General Family Medicine 05/26/20 [facility] [address] [place] [address] Electrostatic Powder Coating Technician Dietitian, Registered 05/25/18 [facility] [place] [address] Naveen Casiano MD Assigned PCP 11/16/20 [address] [place] [address] Harlan Lin Assigned Endocrinology 12/07/20 08/01/21 MD [place] Provider NO INFO AVAILABLE documented as of this encounter
--- OUTSIDE RECORDS SUMMARY | 2022-02-09 13:18 | XMS_ITS | Encounter Summary ---
:1965 Author Organization [place] Address [address] [facility] [place] [address] Care Team Providers Name Role Phone Annette Alvarezmamadou ALVAREZ CHASSIS INSPECTOR Unavailable [phone] Unavailable Tamar Murphy APRN CHASSIS INSPECTOR Unavailable Nikita Gamble Primary Care Provider Reason for Visit Reason Onset Date Comments Hypoglycemia 07/28/2020 Encounter Details Date Type Department Care Team Description 07/28/2020 Telephone [facility] Tamar Murphy APRN Hypoglycemia [place] [id number] [phone] [place] [address] (Wo rk) Social History Tobacco Use Types Packs/Day Years Used Date Smoking Tobacco: Never Smokeless Tobacco: Never Alcohol Use Standard Drinks/Week Comments Yes 0 (1 standard drink = 0.6 oz pure alcoho l) rare Sex Assigned at Date Recorded Female 03/04/2020 12:33 PM PC TECH documented as of this encounter Miscellaneous Notes Telephone Encounter - Tamar Murphy APRN CHASSIS INSPECTOR - 07/28/2020 5:57 PM CDT Responded to staff request as MAURICE concerned for low blood sugar. Patient with repeated wording and inconsistent with conversation. Patient's CGM checked and was at 70. Patient given personal glucose drink, Mt Dew, and glucose drinkfrom lab of 150 mg of glucose. remediation technician called to room to check glucose [...] strong recommendations against it. Tamar Murphy APRN CHASSIS INSPECTOR on 07/28/2020 at 6:04 PM documented in this encounter Plan of Treatment Not on filedocumented as of this encounter Visit Diagnoses Not on filedocumented in this encounter Additional Health Concerns Assessment Noted Time PHQ-9 Depression Total Score: 0 02/26/2020 1:30 PM PC TECH documented as of this encounter Care Teams Laborer Wharf Relationship Specialty Start Date End Date Nikita Gamble PCP - General Family Medicine 05/26/20 [facility] [address] [place] [address] Annette Alvarez, Nurse Practitioner Clinical Nurse 03/22/17 10/21/20 RESIDENTIAL DIRECTOR CHASSIS INSPECTOR Specialist [address] [place] [address] Product Manufacturing Professional Dietitian, Registered 05/25/[address] [place] [address] Tamar Murphy APRN Assigned PCP 02/08/2011/15/ 1 CHASSIS INSPECTOR [address] [place], [place] [phone] documented as of this encounter
--- OUTSIDE RECORDS SUMMARY | 2022-02-09 13:18 | XMS_ITS | Encounter Summary ---
:1965 Author Organization [place] Address [address] [place] [address]. [place] [address] Care Team Providers Name Role Phone Annette Alvarez APRN, CNP Unavailable Goran Lloyd Primary Care Provider Jocelyn Davidson RD Unavailable Tamar Murphy APRN CLAIMS VICE PRESIDENT Unavailable Reason for Referral Patient Education (Routine) - Closed Specialty Diagnoses / Procedures Referred By Contact Refer red To Contact Diabetes Education Diagnoses Controlled type 1 diabetes mellitus with chronic kidney disease, unspecified CKD stage (H) Annette Alvarez, [facility] [id number] [place] [phone] Referral ID Status Reason Start Date Expiration Date Visits Requ ested Visits Authorized [id number] Closed 03/05/2020 03/05/2021 1 1 EWATER TECHNICIAN Reason for Visit Reason Comments Diabetes Encounter Details Date Type Department Care Team Description 03/05/[address] 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; [id number] [place] [address] [phone] Social History Tobacco Use Types Packs/Day Years Used Date Smoking Tobacco: Never Smokeless Tobacco: Never Alcohol Use Standard Drinks/Week Comments Yes 0 (1 standard drink = 0.6 oz pure alcoho l) rare Sex Assigned at Date Recorded Female 03/04/2020 12:33 PM WASTEWATER TECHNICIAN COVID-19 Exposure Response Date Recorded In the last month, have you been in contact with No / Unsure 03/05/2020 11:41 AM WASTEWATER TECHNICIAN someone who was confirmed or suspected to have Coronavirus / COVID-19? documented as of this encounter Last Filed Vital Signs Vital Sign Reading Time Taken Comments Blood Pressure 110/60 03/05/2020 12:40 PM WASTEWATER TECHNICIAN Pulse 70 03/05/2020 12:40 PM WASTEWATER TECHNICIAN Temperature 36.9 ??C (98.5 ??F) 03/05/2020 12:40 PM WASTEWATER TECHNICIAN Respiratory Rate - - Oxygen Saturation 97% 03/05/2020 12:40 PM WASTEWATER TECHNICIAN Inhaled Oxygen Concentration - - Weight - - Height - - Body Mass Index - - documented in this encounter Progress Notes Annette Alvarez APRN CLAIMS VICE PRESIDENT - 03/05/2020 1:30 PM CST Name: Marnie [...] times a day Previously seeing ulysses at [employer] 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 Intimate partner violence Fear of current or ex partner: Not on file Emotionally abused: Not on file Physically abused: Not on file Forced sexual activity: Not on file Other Topics Concern ??? Parent/sibling w/ CABG, GA or angioplasty before 65F 55M? 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 Intimate partner violence Fear of current or ex partner: Not on file Emotionally abused: Not on file Physically abused: Not on file Forced sexual activity: Not on file Other Topics Concern ??? Parent/sibling w/ CABG, GA or angioplasty before 65F 55M? Not Asked [...] ??? Basic metabolic panel ??? AMBULATORY ADULT LINOTYPER REFERRAL Radiology/Consults ordered today: More than 50% of the time spent with?Jadiel??on counseling / coordinating her??care??and discussing the above plan of care. The patient indicates understanding of the above issues and agrees withthe plan set forth. ??Total face to face??time was 25??minutes. Follow-up: 3 months with ulysses Alvarez NP Endocrinology [facility] CC: EWATER TECHNICIAN documented in this encounter Miscellaneous Notes Result Encounter Note - Annette Alvarez APRN CNP - 03/05/2020 1:30 PM WASTEWATER TECHNICIAN Marnie, As previously messaged, there was no [...] in the office. Annette Alvarez NP Endocrinology EWATER TECHNICIAN documented in this encounter Plan of Treatment Scheduled Referrals Name Type Priority Associated Diagnoses Order S chedule AMBULATORY ADULT Referral Routine Controlled type 1 Expect ed: LINOTYPER diabetes mellitus with 03/05/2020, Expires: REFERRAL chronic kidney disease, 11/2020 unspecified CKD stage (H) documented as of this encounter Procedures Procedure Name Priority Date/Time Associated Diagnosis Comme nts ALBUMIN RANDOM URINE Routine 03/05/2020 2:40 PM Controlled typ e 1 Results for this QUANTITATIVE WASTEWATER TECHNICIAN diabetes mellitus procedure are in with chronic kidney the resu lts disease, unspecified section . CKD stage (H) TSH WITH FREE T4 Routine 03/05/2020 2:39 PM Controlled type 1 Results for this REFLEX WASTEWATER TECHNICIAN diabetes mellitus procedure are in with chronic kidney the resu lts disease, unspecified section . CKD stage (H) LIPID REFLEX TO Routine 03/05/2020 2:39 PM Controlled type 1 R esults for this DIRECT LDL PANEL WASTEWATER TECHNICIAN diabetes mellitus proced ure are in with chronic kidney the resu lts disease, unspecified section . CKD stage (H) BASIC METABOLIC PANEL Routine 03/05/2020 2:39 PM Controlled ty pe 1 Results for this WASTEWATER TECHNICIAN diabetes mellitus procedure are in with chronic kidney the resu lts disease, unspecified section . CKD stage (H) HEMOGLOBIN A1C Routine 03/05/2020 12:14 Controlled type 1 Resu lts for this PM WASTEWATER TECHNICIAN diabetes mellitus procedure are in with chronic kidney the resu lts disease, unspecified section . CKD stage (H) documented in this encounter Results Albumin Random Urine Quantitative with Creat Ratio (03/05/2020 2:40 PM WASTEWATER TECHNICIAN) [facility] Method Time Signature Creatinine 72 mg/dL 03/06/2020 [place] Urine 8:48 AM [facility] Albumin Urine <5 mg/L 03/06/2020 [place] mg/L 8:56 AM [facility] Albumin Urine Unable to 0 - 25 03/06/2020 [place] mg/g Cr calculate due mg/g Cr 8:56 AM WASTEWATER TECHNICIAN CLINICS to low value [facility] Specimen Anatomical Collection Method Collection Time Receive d Time (Source) Location / / Volume Laterality Urine specimen 03/05/2020 2:40 PM 020 2:41 (specimen) WASTEWATER TECHNICIAN PM WASTEWATER TECHNICIAN Annette Alvarez ALARM SECURITY OR SURVEILLANCE MONITOR CLAIMS VICE PRESIDENT LAB - URINE ORDERABLES Performing Organization Address City/State/ZIP Code Phon e Number [facility] [address] [place] [address] (ABNORMAL) Basic metabolic panel (03/05/2020 2:39 PM WASTEWATER TECHNICIAN) [facility] Method Time Signature Sodium 139 133 - 144 03/06/2020 [place] mmol/L 11:26 AM [facility] Potassium 4.6 3.4 - 5.3 03/06/2020 [place] mmol/L 11:26 AM [facility] Chloride 108 94 - 109 03/06/2020 [place] mmol/L 11:26 AM [facility] Carbon Dioxide 25 20 - 32 03/06/2020 [facility] mmol/L 11:43 AM [facility] Anion Gap 6 3 - 14 03/06/2020 [place] mmol/L 11:43 AM [facility] Glucose 64 (L) 70 - 99 03/06/2020 [place] mg/dL 11:43 AM [facility] Urea Nitrogen 38 (H) 7 - 30 03/06/2020 [place] mg/dL 11:43 AM [facility] Creatinine 1.83 (H) 0.52 - 03/06/2020 [facility] 1.04 11:43 AM [facility] mg/dL [facility] GFR Estimate 31 (L) >60 03/06/2020 [place] mL/min/{1 11:43 AM [facility] .73_m2} HOSPITAL Comment: Non GFR Calc Starting 03/14/2018, serum creatinine ba sed estimated GFR (eGFR) will be calculated using the Chronic Kidney Dise [facility] Epidemiology Collaboration (CKD-EPI) equation. GFR Estimate If 35 (L) >60 mL/min/{1.73_m2} 03/06/2020 11 :43 AM [facility] Comment: GFR Calc Starting 03/14/2018, serum creatinine ba sed estimated GFR (eGFR) will be calculated using the Chronic Kidney Dise [facility] Epidemiology Collaboration (CKD-EPI) equation. Calcium 9.1 8.5 - 10.1 mg/dL 03/06/2020 11:[address] [facility] Specimen Anatomical Collection Method Collection Time Receive d Time (Source) Location / / Volume Laterality Blood specimen 03/05/2020 2:39 PM 020 2:40 (specimen) WASTEWATER TECHNICIAN PM WASTEWATER TECHNICIAN Annette Alvarez ALARM SECURITY OR SURVEILLANCE MONITOR CLAIMS VICE PRESIDENT LAB - BLOOD ORDERABLES Performing Organization Address City/State/ZIP Code Phon e Number M [facility] [address] [address] [phone] [facility] [address] [place], [place] [address] [facility] [address] [address], [facility] [phone] (ABNORMAL) Lipid panel reflex to direct LDL Fasting (03/05/2020 2:39 PM WASTEWATER TECHNICIAN) athologist Signature Cholesterol 170 <200 mg/dL 03/06/2020 [place] 11:43 AM [facility] Triglycerides 224 (H) <150 mg/dL 03/06/2020 [place] 11:43 AM [facility] Comment: Borderline high: ??150-199 mg/dl High: ? 200-499 mg/dl Very high: ? >499 mg/dl HDL Cholesterol 57 >49 mg/dL 03/06/2020 11:51 AM [facility] CLINICS [facility] LDL Cholesterol 68 <100 mg/dL 03/06/2020 11:51 AM [facility] Calculated [facility] Comment: Desirable: <100 mg/dl Non HDL Cholesterol 113 <130 mg/dL 03/06/2020 11:51 AM WASTEWATER TECHNICIAN [facility] Specimen Anatomical Collection Method Collection Time Receive d Time (Source) Location / / Volume Laterality Blood specimen 03/05/2020 2:39 PM 020 2:40 (specimen) WASTEWATER TECHNICIAN PM WASTEWATER TECHNICIAN Annette Alvarez APRN, CNP LAB - BLOOD ORDERABLES Performing Organization Address City/[facility]/ZIP Code Phon e Number [facility] [address] [place], [place] [address] [facility] [address] [place] [address], [place] [phone] TSH with free T4 reflex (03/05/2020 2:39 PM WASTEWATER TECHNICIAN) athologist Signature TSH 1.97 0.40 - 4.00 03/06/2020 [facility] mU/L 11:[address] [facility] Specimen Anatomical Collection Method Collection Time Receive d Time (Source) Location / / Volume Laterality Blood specimen 03/05/2020 2:39 PM 020 2:40 (specimen) WASTEWATER TECHNICIAN PM WASTEWATER TECHNICIAN Annette Alvarez APRN, CNP LAB - BLOOD ORDERABLES Performing Organization Address City/[facility]/ZIP Code Phon e Number [facility] [address] [place] [address] (ABNORMAL) Hemoglobin A1c (03/05/2020 12:14 PM WASTEWATER TECHNICIAN) athologist Signature Hemoglobin A1C 6.6 (H) 0 - 5.6 % 03/05/2020 [place] 12:36 PM WASTEWATER TECHNICIAN [facility] Comment: Normal <5.7% Prediabetes 5.7-6.4% ??Diab etes 6.5% or higher - adopted from ADA consensus guidelines. Specimen Anatomical Collection Method Collection Time Receive d Time (Source) Location / / Volume Laterality Blood specimen 03/05/2020 12:14 0 (specimen) PM WASTEWATER TECHNICIAN 12:28 PM WASTEWATER TECHNICIAN Annette Alvarez APRN, CNP LAB - BLOOD ORDERABLES Performing Organization Address City/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 Insulin pump in place Insulin pump status documented in this encounter Additional Health Concerns Assessment Noted Time PHQ-9 Depression Total Score: 0 02/26/2020 1:30 PM WASTEWATER TECHNICIAN documented as of this encounter Care Teams Auto Damage Adjuster Relationship Specialty Start Date End Date Goran Lloyd PCP - General Family Practice 12/29/17 05/21/[address] [address] Annette Alvarez, Nurse Practitioner Clinical Nurse 03/22/17 10/21/20 ALARM SECURITY OR SURVEILLANCE MONITOR CLAIMS VICE PRESIDENT Specialist [phone] [place] [address] Materials Coordinator Dietitian, Registered 05/25/18 [facility] Kaleigh [place] [address] [place] [address] [place] [address] Tamar Murphy APRN Assigned PCP 02/08/20 1 CLAIMS VICE PRESIDENT [phone] [place] [phone] documented as of this encounter
--- OUTSIDE RECORDS SUMMARY | 2022-02-09 13:18 | XMS_ITS | Encounter Summary ---
:1965 Author Organization [place] Address [address] [facility] [place] [address] Care Team Providers Name Role Phone Jocelyn Davidson Bran YANEZ Unavailable Nikita Gamble Primary Care Provider Naveen Casiano MD Unavailable Harlan Lin MD Unavailable Unavailable Encounter Details Date Type Department Care Team Description 01/05/2021 Lab [facility] Typ e 1 diabetes mellitus with [facility] stage 3a chronic kidney [address] [facility] disease (H) [place], [place] [phone] Social History Tobacco Use Types Packs/Day Years Used Date Smoking Tobacco: Never Smokeless Tobacco: Never Alcohol Use Standard Drinks/Week Comments Yes 0 (1 standard drink = 0.6 oz pure alcoho l) rare Sex Assigned at Date Recorded Female 03/04/2020 12:33 PM AFTER SCHOOL PROGRAM COORDINATOR COVID-19 Exposure Response Date Recorded In [...] City/State/ZIP Code Ph[place] [address] [phone] [facility] [address] [facility] Lab (no room number, 1st floor of clinic) [facility] [place], [place] [phone] [facility] [address] [address] [facility] Lab (no room number, 1st [...] LAB - URINE ORDERABLES Performing Organization Address City/[facility] Phon e Number [facility] [place], [place] [phone] [facility] [address] [place] [address] Lab (no room number, 1st floor of clinic) [facility] [place], [place] [phone] [facility] [address] [address] Lab (no room number, 1st floor [...] LAB - BLOOD ORDERABLES Performing Organization Address City/[facility] Phon e Number [facility] [place], [place] [phone] [facility] [address] [place] [address] Lab (no room number, 1st floor of clinic) [facility] [place], [place] [phone] [facility] [id number] [address] Lab (no room number, 1st floor [...] City/State/ZIP Code Phon e Number OX LAB[facility] Clinic - [place], [place] [phone] [facility] [address] Lab (no room number, 1st floor of clinic) [facility] [place], [place] [phone] [facility] [place] [address], [facility] [address] Lab (no room number, 1st floor [...] LAB - BLOOD ORDERABLES Performing Organization Address City/[facility] Phon e Number [facility] [place], [place] [phone] [facility] [address] Lab (no room number, 1st floor of clinic) [facility] [place], [place] [phone] [facility] [address] [address] Lab (no room number, 1st floor of clinic) (ABNORMAL) TSH with free T4 reflex (01/05/2021 3:03 PM CDT) athologist Signature TSH 8.38 (H) 0.40 - 4.00 01/06/2021 [facility] mU/L 9:21 AM CDT Specimen Anatomical Collection Method / Collection Time Recei olga Time (Source) Location / Volume Laterality Blood BLOOD SPECIMEN / Venipuncture / 01/05/2021 3:03 2020 3:04 Unknown Unknown PM CDT PM CDT Harlan Lin MD LAB - BLOOD ORDERABLES Performing Organization Address [facility] Phon e Number [facility] [place], [place] [phone] [facility] [address] [place] [address] Lab (no room number, 1st floor of clinic) [facility] [place], [place] [phone] [facility] [address] [address] Lab (no room number, 1st floor of clinic) documented in this encounter Visit Diagnoses Diagnosis Type 1 diabetes mellitus with stage 3a c hronic kidney disease (H) documented in this encounter Additional Health Concerns Assessment Noted Time PHQ-9 Depression Total Score: 0 02/26/2020 1:30 PM AFTER SCHOOL PROGRAM COORDINATOR documented as of this encounter Care Teams Track Vehicle Repairer Relationship Specialty Start Date End Date Nikita Gamble PCP - General Family Medicine 05/26/[address] Sql Report Analyst Dietitian, Registered 05/25/18 [facility] [place] [address] Naveen Casiano MD Assigned PCP 11/16/20 [address] [place], [place] [phone] Harlan Lin Assigned Endocrinology 12/07/20 08/01/21 MD Bass[place] Provider NO INFO AVAILABLE documented as of this encounter
--- OUTSIDE RECORDS SUMMARY | 2022-02-09 13:18 | XMS_ITS | Encounter Summary ---
:1965 Author Organization [place] Address [address] [place] [address] Care Team Providers Name Role Phone Annette Alvarez MANUFACTURING TEAM MEMBER AMMUNITION ASSEMBLY I LABORER Unavailable [phone] Goran Lloyd Primary Care Provider Jocelyn Davidson RD Unavailable Tamar Murphy MANUFACTURING TEAM MEMBER AMMUNITION ASSEMBLY I LABORER Unavailable Encounter Details Date Type Department Care Team Description 02/27/2020 Telephone [facility] Kalpesh Lau PA-C [address] [address] [address] [address] [phone] Social History Tobacco Use Types Packs/Day Years Used Date Smoking Tobacco: Never Smokeless Tobacco: Never Alcohol Use Standard Drinks/Week Comments Yes 0 (1 standard drink = 0.6 oz pure alcoho l) rare Sex Assigned at Date Recorded Female 03/04/2020 12:33 PM BALLING HEAD TENDER COVID-19 Exposure Response Date Recorded In the last month, have you been in contact with No / Unsure 02/03/2020 12:21 PM BALLING HEAD TENDER someone who was confirmed or suspected to have Coronavirus / COVID-19? documented as of this encounter Miscellaneous Notes Telephone Encounter - Kalpesh Lau PA-C - 02/27/2020 5:09 PM CST I listened to patient's lungs which sounded quite raspy and congested. Sent in antibiotic to cover for pneumonia and codeine cough syrup. Kalpesh Lau PA-C on 02/27/2020 at 5:09 PM ING HEAD TENDER Telephone Encounter - Atiya Cowart - 02/27/2020 3:51 PM CST Patient requesting cough syrup Aitya Cowart/Plate Glass Installer Helper ING HEAD TENDER documented in this encounter Plan of Treatment Not on filedocumented as of this encounter Visit Diagnoses Diagnosis Cough - Primary documented in this encounter Additional Health Concerns Infection Onset Date Last Indicated Resolved Time Rule Out COVID-19 02/26/2020 02/26/2020 02/27/2020 4:3 2 PM BALLING HEAD TENDER Assessment Noted Time PHQ-9 Depression Total Score: 0 02/26/2020 1:30 PM BALLING HEAD TENDER documented as of this encounter Care Teams Street Cleaner Relationship Specialty Start Date End Date Goran Lloyd PCP - General Family Practice 12/29/17 05/21/20 [facility] [address] [place] [address] Annette Alvarez, Nurse Practitioner Clinical Nurse 03/22/17 10/21/20 MANUFACTURING TEAM MEMBER AMMUNITION ASSEMBLY I LABORER Specialist [address] [place] [address] Director Oncology Dietitian, Registered 05/25/18 [facility] [place] [address] Tamar Murphy APRN Assigned PCP 02/08/20 1 AMMUNITION ASSEMBLY I LABORER [address] [place], [place] [phone] documented as of this encounter
--- OUTSIDE RECORDS SUMMARY | 2022-02-09 13:18 | XMS_ITS | Encounter Summary ---
:1965 Author Organization [place] Address [address] [facility] [place] [address] Care Team Providers Name Role Phone Jocelyn Davidson Bran YANEZ Unavailable Nikita Gamble Primary Care Provider Naveen Casiano MD Unavailable Harlan Lin MD Unavailable Unavailable Reason for Visit Reason Comments Medication Refill Encounter Details Date Type Department Care Team Description 03/14/2021 Refill [facility] Annette Alvarez, Medication Refill [address] [phone] [place] [address] (Wo rk) Social History Tobacco Use Types Packs/Day Years Used Date Smoking Tobacco: Never Smokeless Tobacco: Never Alcohol Use Standard Drinks/Week Comments Yes 0 (1 standard drink = 0.6 oz pure alcoho l) rare Sex Assigned at Date Recorded Female 03/04/2020 12:33 PM DRAWING BOX TENDER documented as of this encounter Miscellaneous Notes Telephone Encounter - Kandi Rooney RN - 03/17/2021 8:49 AM CST Routing refill request to provider for review/approval because: Labs out of range: TSH Patient needs to be seen because it has been more than 1 year since last office visit as patient seen Annette Alvarez ING BOX TENDER documented in this encounter Plan of Treatment Not on filedocumented as of this encounter Visit Diagnoses Diagnosis Type 1 diabetes mellitus with stage 3a c hronic kidney disease (H) - Primary 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 documented in this encounter Additional Health Concerns Assessment Noted Time PHQ-9 Depression Total Score: 0 02/26/2020 1:30 PM DRAWING BOX TENDER documented as of this encounter Care Teams Ice Cream Dispenser Relationship Specialty Start Date End Date Nikita Gamble PCP - General Family Medicine 05/26/20 [facility] [address] [place] [address] Glass Forming Engineer Dietitian, Registered 05/25/[address] [place] [address] Naveen Casiano MD Assigned PCP 11/16/20 [address] [place] [address] Harlan Lni Assigned Endocrinology 12/07/20 08/01/21 MD Bassam Provider NO INFO AVAILABLE documented as of this encounter
--- OUTSIDE RECORDS SUMMARY | 2022-02-09 13:18 | XMS_ITS | Encounter Summary ---
:1965 Author Organization [place] Address [address] [place] [address] Care Team Providers Name Role Phone Jocelyn Davidson RENATA Unavailable Nikita Gamble Primary Care Provider Naveen Casiano MD Unavailable Harlan Lin MD Unavailable Unavailable Encounter Details Date Type Department Care Team Description 01/01/[address] [facility] Naveen Casiano, Post-tr aumatic Clinic [place] osteoarthritis of left [address] [place] [address] knee (Primary Dx) [place] [address] [id number] Social History Tobacco Use Types Packs/Day Years Used Date Smoking Tobacco: Never Smokeless Tobacco: Never Alcohol Use Standard Drinks/Week Comments Yes 0 (1 standard drink = 0.6 oz pure alcoho l) rare Sex Assigned at Date Recorded Female 03/04/2020 12:33 PM BACK DIGGER OPERATOR COVID-19 Exposure Response Date Recorded In the last month, have you been in contact with No / Unsure 12/03/2020 8:01 PM CDT someone who was confirmed or suspected to have Coronavirus / COVID-19? documented as of this encounter Plan of Treatment Not on filedocumented as of this encounter Results Asymptomatic COVID-19 [...] the Xpert Xpress SARS-CoV-2 Assay on the [employer] Systems. A dditional information about this [...] This test was validated by the [facility] Infectious Diseases Diagnostic Laboratory. This lab oratory is certified under the Clinical Laboratory Improvement Amen dments of 1987 (CLIA-88) as qualified to perform high complexity lab oratory testing. Naveen Casiano MD LAB - MICRO GENERAL ORDERABL ES Performing Organization Address City/State/ZIP Code Phon e Number [facility] [place] [phone] Diag. Lab [address] [facility] Room D297 [facility] Infectious [place], [place] [phone] Diseases Diagnostic [id number], [facility] Lab (IDDL) [address] [facility], Room D297 documented in this encounter Visit Diagnoses Diagnosis Post-traumatic osteoarthritis of left kn ee - Primary Secondary localized osteoarthrosis, lowe r leg documented in this encounter Additional Health Concerns Assessment Noted Time PHQ-9 Depression Total Score: 0 02/26/2020 1:30 PM BACK DIGGER OPERATOR documented as of this encounter Care Teams Candy Decorator Relationship Specialty Start Date End Date Nikita Gamble PCP - General Family Medicine 05/26/20 [facility] [address] [place] [address] Birthing Nurse Dietitian, Registered 05/25/18 [facility] - [address] [place] [address] Naveen Casiano MD Assigned PCP 11/16/20 [address] [place] [address] Harlan Lin Assigned Endocrinology 12/07/20 08/01/21 MD Bassam Provider NO INFO AVAILABLE documented as of this encounter
--- OUTSIDE RECORDS SUMMARY | 2022-02-09 13:18 | XMS_ITS | Encounter Summary ---
:1965 Author Organization [place] Address [address] [facility] [address] Care Team Providers Name Role Phone StuartJocelyn [...] Expiration Date Visits Requ ested Visits Authorized [id number] Closed 12/03/2020 12/03/2021 1 1 Scheduling Instructions Jocelyn Davidson please. 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; [address] [place] [address] NO INFO Insulin pump in place NE AVAILABLE SHARAN Cox [phone] Social History Tobacco Use Types Packs/Day Years Used Date Smoking Tobacco: Never Smokeless Tobacco: Never Tobacco Cessation: Counseling Given: No Alcohol Use Standard Drinks/Week Comments Yes 0 (1 standard drink = 0.6 oz pure alcoho l) rare Sex Assigned at Date Recorded Female 03/04/2020 12:33 PM VAMPER COVID-19 Exposure Response Date Recorded In the last month, have you been in contact with No / Unsure 12/02/2020 3:27 PM CDT someone who was confirmed or suspected to have Coronavirus / COVID-19? documented as of this encounter Progress Notes Harlan Lin - 12/03/2020 11:00 AM CDT Marnie is [...] today. The email she has for her [employer] account is listed as not being found. Remarks on prior issues with lows that resolved with lowering basal rates but has also taken to having scheduled snacks. She does not give insulin for these snacks. Notes she is having highs after her afternoon snack at 1545. Also having highs at 5517-4446. Dinner is 5332-8600. ROS: 10 point ROS neg other than [...] DM. 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 Exam: GENERAL: Healthy, alert and no distress [...] Location): Other office Distant Location (provider location): [facility] Platform used for Video Visit: [employer] Harlan Lin MD on 12/03/2020 at 11:31 AM [...] Diabetes Referral Routine Type 1 diabetes mellit us Expected: 12/03/2020 Educator Referral with stage 3a [...] LAB - BLOOD ORDERABLES Performing Organization Address City/[facility]/ZIP Code Phon e Number CR LABORATORY [facility] [place] [address] [place] [facility] [address] [facility] Lab (no room number, 1st floor of clinic) CR LABORATORY [place], [place] [phone] [facility] [address], [facility] Lab [address] [facility] Lab (no room number, 1st floor of clinic) Albumin Random Urine Quantitative with Creat Ratio (01/05/2021 3:04 PM CDT) P athologist Signature Creatinine 36 mg/dL 01/06/2021 OX [...] LAB - URINE ORDERABLES Performing Organization Address City/[facility]/ZIP Code Phon e Number OX LABORATORY [place], [place] [phone] [place] [facility] [address] [place] [address] Lab (no room number, 1st floor of clinic) OX LABORATORY [place], [place] [phone] [facility] [id number] [place] [facility] [address] Lab (no room number, 1st floor [...] City/State/ZIP Code Phon e Number OX LABORATORY [facility] [place], [place] [phone] [place] [facility] [facility] [address] [place] [address] Lab (no room number, 1st floor of clinic) O[facility] LABORATORY [place], [place] [phone] [facility] [place] [address], [facility] [place] [facility] [address] Lab (no room number, 1st floor [...] City/State/ZIP Code Phon e Number OX LABORATORY [facility] [place], [place] [phone] [place] [facility] [facility] [address] Lab (no room number, 1st floor of clinic) O[facility] LABORATORY [place], [place] [phone] [place] [facility] [address] Lab (no room number, 1st floor [...] City/State/ZIP Code Phon e Number OX LABORATORY [place], [place] [phone] [place] [facility] [address] [place] [address] Lab (no room number, 1st floor of clinic) OX LABORATORY [place], [place] [phone] [place] [facility] [address] Lab (no room number, 1st floor of clinic) documented in this encounter Visit Diagnoses Diagnosis Type 1 diabetes mellitus with stage 3a c hronic kidney disease (H) - Primary 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 Insulin pump in place Insulin pump status documented in this encounter Additional Health Concerns Assessment Noted Time PHQ-9 Depression Total Score: 0 02/26/2020 1:30 PM VAMPER documented as of this encounter Care Teams Bicycle Courier Relationship Specialty Start Date End Date Nikita Gamble PCP - General Family Medicine 05/26/20 [facility] [address] [place] [address] Loan Servicing Specialist Dietitian, Registered 05/25/18 [facility] [address] [place] [address] SHARAN CARSON [address] Naveen Casiano MD Assigned PCP 11/16/20 [address] [place] [address] documented as of this encounter
--- OUTSIDE RECORDS SUMMARY | 2022-02-09 13:18 | XMS_ITS | Encounter Summary ---
:1965 Author Organization [place] Address [facility] [place] [address] Care Team Providers Name Role Phone Annette Alvarez KIM 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 INTERN Unavailable [phone] Unavailable Tamar Murphy APRN 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 INTERN Unavailable Nikita Gamble Primary Care Provider Reason for Referral Diagnostic Imaging XR (Routine) - Closed Specialty Diagnoses / Procedures Referred By Contact Refer red To Contact Diagnoses Positive QuantiFERON-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 Mj Tenorio MD Procedures XR Chest 1 View, [employer] [address] [place], [place] [id number] 4 Referral ID Status Reason Start Date Expiration Date Visits Requ ested Visits Authorized [id number] Closed 10/15/2020 10/15/2021 1 1 Reason for Visit Diagnostic Imaging XR (Routine) - Closed Specialty Diagnoses / Procedures Referred By Contact Refer red To Contact Diagnoses Positive QuantiFERON-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 Mj Tenorio MD Procedures XR Chest 1 View, [employer] [place] [id number] 4 Referral ID Status Reason Start Date Expiration Date Visits Requ ested Visits Authorized [id number] Closed 10/15/2020 10/15/2021 1 1 Encounter Details Date Type Department Care Team Description 10/15/2020 Hospital Encounter [facility] Mj Tenorio Positive [facility] MD Olegario QuantiFERON-TB Gold [address] test [facility] 213 [address] [place], [place] [phone] [address] Social History Tobacco Use Types Packs/Day Years Used Date Smoking Tobacco: Never Smokeless Tobacco: Never Alcohol Use Standard Drinks/Week Comments Yes 0 (1 standard drink = 0.6 oz pure alcoho l) rare Sex Assigned at Date Recorded Female 03/04/2020 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 Do not dispense until requested by patient. benzonatate (TESSALON) Take 1 capsule (200 30 capsule 0 03/201911/06/2020 200 MG mg) by mouth 2 times capsuleIndications: daily as needed for Cough cough BIOTIN PO 0 11/06/2020 blood glucose Use to test blood 408 each 3 02/04/201705/2021 monitoring (ACCU-CHEK sugar 4 times daily FASTCLIX) [...] vial Up to 125 units per day. insulin degludec For pump failure 15 mL 1 03/05/2020 (TRESIBA) 200 UNIT/ML only. Inject 39 units pen every 24 hours. levothyroxine TAKE ONE TABLET BY 90 tablet [...] this encounter Results XR Chest 1 View, [employer] (10/15/2020 9:33 AM CDT) Anatomical Region Laterality [...] Depression Total Score: 0 02/26/2020 1:30 PM SERVICE STATION ATTENDANT documented as of this encounter Care Teams Pinion Polisher Relationship Specialty Start Date End Date Nikita Gamble PCP - General Family Medicine 05/26/20 [facility] [address] [place] [address] Annette Alvarez, Nurse Practitioner Clinical Nurse 03/22/17 10/21/20 IN ROOM DINING SERVER 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 INTERN Specialist [address] [place], [place] [phone] Jocelyn Davidson RD Programmer Analyst Dietitian, Registered 05/25/18 [facility] [place] SHARAN CARSON [address] Tamar Murphy APRN Assigned PCP 02/08/20 1 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 INTERN [address] [place], [place] [phone] documented as of this encounter
--- OUTSIDE RECORDS SUMMARY | 2022-02-09 13:18 | XMS_ITS | Encounter Summary ---
:1965 Author Organization [place] Address [address] [facility] [place] [address] Care Team Providers Name Role Phone Jocelyn Davidson RENATA Unavailable Nikita Gamble Primary Care Provider Naveen Casiano MD Unavailable Harlan Lin MD Unavailable Unavailable Mikki Blevins MD Unavailable Reason for Visit Reason Comments Medication Refill levothyroxine (SYNTHROID/LEV OTHROID) 175 MCG tablet Encounter Details Date Type Department Care Team Description 06/22/2021 Refill [facility] Clinic TurneyPavel Banegas MD (levothyroxine [address] [facility] NO INFO (SYNTHROID/LEVOTHROID) [place], [place] AVAILABLE 175 MCG tab let) [id number] Social History Tobacco Use Types Packs/Day Years Used Date Smoking Tobacco: Never Smokeless Tobacco: Never Alcohol Use Standard Drinks/Week Comments Yes 0 (1 standard drink = 0.6 oz pure alcoho l) rare Sex Assigned at Date Recorded Female 03/04/2020 12:33 PM TREKKING GUIDE documented as of this encounter Miscellaneous Notes [...] Depression Total Score: 0 02/26/2020 1:30 PM TREKKING GUIDE documented as of this encounter Care Teams Control Room Technician Relationship Specialty Start Date End Date Nikita Gamble PCP - General Family Medicine 05/26/20 [facility] [address] [place] [address] Window Shade Estimator Dietitian, Registered 05/25/18 [facility] [address] [place] [address] [place] [address] Naveen Casiano MD Assigned PCP 11/16/20 [address] [place] [address] Harlan Lin Assigned Endocrinology 12/07/20 08/01/21 MD Bassam Provider NO INFO AVAILABLE Mikki Blevins MD MD Endocrinology, 05/07/21 909 [facility] Diabetes, and [place], [place] Metabolism [address] documented as of this encounter
--- OUTSIDE RECORDS SUMMARY | 2022-02-09 13:18 | XMS_ITS | Encounter Summary ---
:1965 Author Organization [place] Address [address] [facility] [place] [address] Care Team Providers Name Role Phone Jocelyn Davidson Bran YANEZ Unavailable Nikita Gamble Primary Care Provider Naveen Casiano MD Unavailable Harlan Lin MD Unavailable Unavailable Reason for Visit Reason Comments Medication Refill Encounter Details Date Type Department Care Team Description 12/10/2020 Refill [facility] Annette Alvarez, Medication Refill [address] [phone] [place] [address] (Wo rk) Social History Tobacco Use Types Packs/Day Years Used Date Smoking Tobacco: Never Smokeless Tobacco: Never Alcohol Use Standard Drinks/Week Comments Yes 0 (1 standard drink = 0.6 oz pure alcoho l) rare Sex Assigned at Date Recorded Female 03/04/2020 12:33 PM 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 GEOLOGIST COVID-19 Exposure Response Date Recorded In the [...] the [facility] refill protocol STEPHANIE Guidry, RN [facility] documented in this encounter Plan of Treatment Not on filedocumented as of this encounter Visit Diagnoses Diagnosis Type 1 diabetes mellitus with stage 3a c hronic kidney disease (H) - Primary documented in this encounter Additional Health Concerns Assessment Noted Time PHQ-9 Depression Total Score: 0 02/26/2020 1:30 PM 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 GEOLOGIST documented as of this encounter Care Teams Inside Horticultural Specialty Grower Relationship Specialty Start Date End Date Nikita Gamble PCP - General Family Medicine 05/26/20 [facility] [address] [place] [address] Creative Arts Music Therapist Dietitian, Registered 05/25/18 [facility] [address] [place] [address] [place] [address] Naveen Casiano MD Assigned PCP 11/16/20 [address] [place], [place] [phone] Harlan Lin Assigned Endocrinology 12/07/20 08/01/21 MD Bassam Provider NO INFO AVAILABLE documented as of this encounter
--- OUTSIDE RECORDS SUMMARY | 2022-02-09 13:18 | XMS_ITS | Encounter Summary ---
:1965 Author Organization [place] Address [address] [facility] [address] Care Team Providers Name Role Phone Jocelyn Davidson RENATA Unavailable Tamar Murphy APRN HEPATOLOGY PHYSICIAN Unavailable Nikita Gamble Primary Care Provider Reason for Visit Reason Comments Headache Encounter Details Date Type Department Care Team Description 11/06/2020 Office Visit [facility] Naveen Casiano, Migrain e with status Clinic [place] migrainosus, [address] intractable, [place], [place] unspeci fied migraine [address] type (Primary Dx) [phone] Social History Tobacco Use Types Packs/Day Years Used Date Smoking Tobacco: Never Smokeless Tobacco: Never Alcohol Use Standard Drinks/Week Comments Yes 0 (1 standard drink = 0.6 oz pure alcoho l) rare Sex Assigned at Date Recorded Female 03/04/2020 12:33 PM 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 COVID-19 Exposure Response Date Recorded In the [...] Depression Total Score: 0 02/26/2020 1:30 PM 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 documented as of this encounter Care Teams Hoop Rolls Operator Relationship Specialty Start Date End Date Nikita Gamble PCP - General Family Medicine 05/26/20 [facility] [address] [place] [address] Package Delivery Driver Dietitian, Registered 05/25/18 [facility] [place] [address] Tamar Murphy APRN HEPATOLOGY PHYSICIAN Assigned PCP 02/08/20 11/15/20 [address] [place] [address] documented as of this encounter
--- OUTSIDE RECORDS SUMMARY | 2022-02-09 13:18 | XMS_ITS | Encounter Summary ---
:1965 Author Organization [place] Address [address] [facility] [place] [address] Care Team Providers Name Role Phone Annette Alvarez KIM ELECTROLESS PLATER Unavailable Goran Lloyd Primary Care Provider Jocelyn Davidson RD Unavailable Tamar Murphy APRN ELECTROLESS PLATER Unavailable Encounter Details Date Type Department Care Team Description 03/25/[address] [facility] Tamar Murphy APRN [address] [phone] [place] [address] (Wo rk) Social History Tobacco Use Types Packs/Day Years Used Date Smoking Tobacco: Never Smokeless Tobacco: Never Alcohol Use Standard Drinks/Week Comments Yes 0 (1 standard drink = 0.6 oz pure alcoho l) rare Sex Assigned at Date Recorded Female 03/04/2020 12:33 PM ENERGY ASSISTANT COVID-19 Exposure Response Date Recorded In the last month, have you been in contact with No / Unsure 03/05/2020 11:41 AM ENERGY ASSISTANT someone who was confirmed or suspected to have Coronavirus / COVID-19? documented as of this encounter Plan of Treatment Not on filedocumented as of this encounter Visit Diagnoses Not on filedocumented in this encounter Additional Health Concerns Assessment Noted Time PHQ-9 Depression Total Score: 0 02/26/2020 1:30 PM ENERGY ASSISTANT documented as of this encounter Care Teams Fnp Relationship Specialty Start Date End Date Goran Lloyd PCP - General Family Practice 12/29/17 05/21/[address] [address] Annette Alvarez, Nurse Practitioner Clinical Nurse 03/22/17 10/21/20 BLACKTOP PAVER OPERATOR ELECTROLESS PLATER Specialist [address] [place], [place] [phone] Jocelyn Davidson RD Service Desk Lead Dietitian, Registered 05/25/18 [facility] [address] [place] [address] [place] [address] Tamar Murphy APRN Assigned PCP 02/08/20 1 ELECTROLESS PLATER [address] [place], [place] [phone] documented as of this encounter
--- OUTSIDE RECORDS SUMMARY | 2022-02-09 13:18 | XMS_ITS | Encounter Summary ---
:1965 Author Organization [place] Address [address] [place] [address] Care Team Providers Name Role Phone Jocelyn Davidson RD Unavailable Nikita Gamble Primary Care Provider Naveen Casiano MD Unavailable Harlan Lin MD Unavailable Unavailable Mikki Blevins MD Unavailable Mikki Blevins MD Unavailable Mindi Llanes PA-C Unavailable [phone] Reason for Visit Reason Onset Date Comments Diabetes Education 12/05/2020 Encounter Details Date Type Department Care Team Description 12/05/2020 Telephone [facility] Harlan Lin gail Education [place] Endocrinolog y MD Bassam [address] [facility] [place] [address] AVAILABLE [phone] Social History Tobacco Use Types Packs/Day Years Used Date Smoking Tobacco: Never Smokeless Tobacco: Never Alcohol Use Standard Drinks/Week Comments Yes 0 (1 standard drink = 0.6 oz pure alcoho l) rare Sex Assigned at Date Recorded Female 03/04/2020 12:33 PM ELEVATOR EXAMINER AND ADJUSTER COVID-19 Exposure Response Date Recorded In the last month, have you been in contact with No / Unsure 12/03/2020 8:01 PM CDT someone who was confirmed or suspected to have Coronavirus / COVID-19? documented as of this encounter Miscellaneous Notes Telephone Encounter - Hernando Gray - 12/05/2020 8:11 AM CDT Diabetes Education Scheduling Outreach #1: Call to patient to schedule. Left message with phone number to call to schedule, if pt calls back toschedule please schedule with Jocelyn Davidson. Plan for 2nd outreach attempt within 1 week. Hernando Gray [facility] [facility] Sched[facility] documented in this encounter Plan of Treatment Not on filedocumented as of this encounter Visit Diagnoses Not on filedocumented in this encounter Additional Health Concerns Assessment Noted Time PHQ-9 Depression Total Score: 0 02/26/2020 1:30 PM ELEVATOR EXAMINER AND ADJUSTER documented as of this encounter Care Teams Pneumatic Tube Repairer Relationship Specialty Start Date End Date Nikita Gamble PCP - General Family Medicine 05/26/[address] Customer Resolution Specialist Dietitian, Registered 05/25/18 [facility] [address] [place] [address] [place] [address] Naveen Casiano MD Assigned PCP 11/16/20 [address] [place] [address] Harlan Lin Assigned Endocrinology 12/07/20 08/01/21 MD Bassam Provider NO INFO AVAILABLE Mikki Blevins MD MD Endocrinology, 05/07/21 909 [facility] Diabetes, and [place], [place] Metabolism [phone] Mikki Blevins MD Assigned Endocrinology 08/02/21 [facility] [place] [address] Mindi Llanes Assigned Surgical 09/26/21 [facility] [place] Provider [address] [place] [address] [address] [place] [address] documented as of this encounter
--- OUTSIDE RECORDS SUMMARY | 2022-02-09 13:18 | XMS_ITS | Encounter Summary ---
:1965 Author Organization [place] Address [facility] [place] [address] Care Team Providers Name Role Phone Jocelyn Davidson RD Unavailable Tamar Murphy APRN PLANT TECHNICIAN Unavailable Nikita Gamble Primary Care Provider Encounter Details Date Type Department Care Team Description 11/06/2020 Travel Social History Tobacco Use Types Packs/Day Years Used Date Smoking Tobacco: Never Smokeless Tobacco: Never Alcohol Use Standard Drinks/Week Comments Yes 0 (1 standard drink = 0.6 oz pure alcoho l) rare Sex Assigned at Date Recorded Female 03/04/2020 12:33 PM SERVICE ORDER CLERK COVID-19 Exposure Response Date Recorded In [...] Total Score: 0 02/26/2020 1:30 PM SERVICE ORDER CLERK documented as of this encounter Care Teams Immersion Metalcleaner Relationship Specialty Start Date End Date Nikita Gamble PCP - General Family Medicine 05/26/20 [facility] [address] [place] [address] Mobile Architect Dietitian, Registered 05/25/18 [facility] [place] [address] Tamar Murphy APRN PLANT TECHNICIAN Assigned PCP 02/08/20 11/15/20 [address] [place], [place] [phone] documented as of this encounter
--- OUTSIDE RECORDS SUMMARY | 2022-02-09 13:19 | XMS_ITS | Encounter Summary ---
:1965 Author Organization [place] Address [address] [place] [address]. [place] [address] Care Team Providers Name Role Phone Annette Alvarez APRN RESTAURANT ASSOCIATE Unavailable [phone] Goran Lloyd Primary Care Provider Jocelyn Davidson RD Unavailable Reason for Visit Reason Onset Date Comments Refill Request 10/16/2018 Levothyroxine refill request Encounter Details Date Type Department Care Team Description 10/16/2018 Refill [facility] Annette Alvarez, Refill Request [place] BONE CHAR KILN OPERATOR RESTAURANT ASSOCIATE (Levothyroxine refill [id number] [facility] [address] [facility] request) [place] [address] [phone] (Wo rk) Social History Tobacco Use Types Packs/Day Years Used Date Smoking Tobacco: Never Smokeless Tobacco: Never Alcohol Use Standard Drinks/Week Comments Yes 0 (1 standard drink = 0.6 oz pure alcoho l) rare Sex Assigned at Date Recorded Female 03/04/2020 12:33 PM NUCLEAR MEDICAL TECH documented as of this encounter Miscellaneous Notes Telephone Encounter - Ashok Bella RN - 10/17/2018 10:34 AM CDT Left message to call back OR log in to [employer] . Message sent. Was due for follow up and labs with Annette in Apr 2018. Prescription approved per [facility] Refill Protocol x 1. Ashok Bella, RN Telephone Encounter - Ashok Bella RN - 10/17/2018 10:33 AM CDT Telephone Encounter - Savanah Madrid - 10/16/2018 3:44 PM CDT Patient requesting Levothyroxine to [facility]. Savanah Madrid. 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
--- OUTSIDE RECORDS SUMMARY | 2022-02-09 13:19 | XMS_ITS | Encounter Summary ---
:1965 Author Organization [place] Address [address] [place] [address]. [place] [address] Care Team Providers Name Role Phone Annette Alavrez APRN BUSINESS CONTINUITY PLANNING DIRECTOR Unavailable [phone] Goran Lloyd Primary Care Provider Jocelyn Davidson RD Unavailable Reason for Visit Reason Comments Medication Refill Encounter Details Date Type Department Care Team Description 03/22/2019 Refill [facility] Annette Alvarez, Medication Refill Maricarmendago ALVAREZ BUSINESS CONTINUITY PLANNING DIRECTOR [id number] [place] [address] [phone] Social History Tobacco Use Types Packs/Day Years Used Date Smoking Tobacco: Never Smokeless Tobacco: Never Alcohol Use Standard Drinks/Week Comments Yes 0 (1 standard drink = 0.6 oz pure alcoho l) rare Sex Assigned at Date Recorded Female 03/04/2020 12:33 PM COMMUNITY RELATIONS DIRECTOR documented as of this encounter Miscellaneous Notes Telephone Encounter - Kate Chau RN - 03/23/2019 5:09 PM COMMUNITY RELATIONS DIRECTOR Routing refill request to provider for review/approval [...] the refill encounter. Kate Chau RN Flex UNITY RELATIONS DIRECTOR documented in this encounter Plan of Treatment Not on filedocumented as of this encounter Visit Diagnoses Diagnosis Type 1 diabetes mellitus with complicati ons (H) Uncontrolled type 1 diabetes mellitus wi th stage 3 chronic kidney disease Type I (juvenile type) diabetes mellitus with renal manifestations, uncontrolled PCOS (polycystic ovarian syndrome) Polycystic ovaries documented in this encounter Care Teams Exceptional Student Education Teacher Relationship Specialty Start Date End Date Goran Lloyd PCP - General Family Practice 12/29/17 05/21/[address] [address] Annette Alvarez, Nurse Practitioner Clinical Nurse 03/22/17 10/21/20 GARMENT INSPECTOR BUSINESS CONTINUITY PLANNING DIRECTOR Specialist [address] [place] [id number] Jocelyn Davidson RD Blocker And Polisher Gold Wheel Dietitian, Registered 05/25/18 [facility] [place] [address] documented as of this encounter
--- OUTSIDE RECORDS SUMMARY | 2022-02-09 13:19 | XMS_ITS | Encounter Summary ---
:1965 Author Organization [facility] Address [address] [facility] [place] [address] Care Team Providers Name Role Phone Annette Alvarez APRN, CNP Unavailable [phone] Goran Lloyd Primary Care Provider Jocelyn Davidson RD Unavailable Reason for Visit Reason Onset Date Comments Refill Request 02/11/2019 levothyroxine (SYNTH ROID/LEVOTHROID) 150 MCG tablet Encounter Details Date Type Department Care Team Description 02/11/[address] [facility] Annette Alvarez, Refill Request Maricarmen ALVAREZ CNP (levothyroxine [address] [employer] [id number] [place] [address] AV E (SYNTHROID/LEVOTHROID) [place], [place] 150 MCG tablet) [address] [address] [place] [address] [phone] Social History Tobacco Use Types Packs/Day Years Used Date Smoking Tobacco: Never Smokeless Tobacco: Never Alcohol Use Standard Drinks/Week Comments Yes 0 (1 standard drink = 0.6 oz pure alcoho l) rare Sex Assigned at Date Recorded Female 03/04/2020 12:33 PM SOUND EDITOR documented as of this encounter Miscellaneous Notes Telephone Encounter - Pam Boudreaux RN - 02/20/2019 4:49 PM CST Images from the original note were not included. Routing refill request to provider for review/approval because: Thyroid Protocol Swolwl39/21 8:05 PM Recent (12 mo) or future (30 days) visit within the authorizing provider's specialty Normal TSH on file in past 12 months Next 5 appointments (look out 90 days) Feb 21, 2019 9:30 AM SOUND EDITOR Telephone Visit with Jocelyn Davidson RD [facility] [address] [facility] [address] Apr 05, 2019 6:30 PM SOUND EDITOR Return Visit with Annette Alvarez APRN CNP [facility] [address] [facility] [address] D EDITOR Telephone Encounter - Sloan Vick RN - 02/15/2019 8:05 PM CST FNA spoke to patient re: levothyroxine refill. FNA advised of note by Annette Alvarez NP. Patient says her TSH was done at the [facility]. Patient has an appointment on 04/05/19 with Annette. Patient would like refills to be sent to [facility] in [place]. Patient is asking for a 90 day refill if possible. Sloan Vick RN/[facility] D EDITOR Telephone Encounter - Annette Alvarez APRN CNP - 02/15/2019 4:21 AM SOUND EDITOR Please call and have patient schedule a follow up visit - not seen for 1 year. Route back to me for refills to last until her scheduled follow up . Annette Alvarez NP Endocrinology D EDITOR Telephone Encounter - Pam Tavera RN - 02/12/2019 4:32 PM CST Failed protocol D EDITOR Telephone Encounter - Micah Sawant - 02/11/2019 4:54 PM CST Requested Prescriptions Pending Prescriptions Disp Refills ??? levothyroxine (SYNTHROID/LEVOTHROID) 150 MCG tablet Last Written Prescription Date: 10/17/2018 Last Fill Quantity: 90 tablet, # refills: 0 Last Office Visit: No previous visit found Future Office Visit: Next 5 appointments (look out 90 days) Apr 05, 2019 6:30 PM SOUND EDITOR Return Visit with Annette Alvarez APRN CNP [facility] [address] [facility] [address] 90 tablet 0 Sig: Take [...] had a positive test, please check TSH. 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
--- OUTSIDE RECORDS SUMMARY | 2022-02-09 13:19 | XMS_ITS | Encounter Summary ---
:1965 Author Organization [facility] Address [address] [place] [address]. [place] [address] Care Team Providers Name Role Phone Annette Alvarez APRN MODEL SET ARTIST Unavailable [phone] Goran Lloyd Primary Care Provider Jocelyn Davidson RD Unavailable Encounter Details Date Type Department Care Team Description 04/16/2019 Travel Social History Tobacco Use Types Packs/Day Years Used Date Smoking Tobacco: Never Smokeless Tobacco: Never Alcohol Use Standard Drinks/Week Comments Yes 0 (1 standard drink = 0.6 oz pure alcoho l) rare Sex Assigned at Date Recorded Female 03/04/2020 12:33 PM CLERICAL INVESTIGATOR documented as of this encounter Plan of Treatment Not on filedocumented as of this encounter Visit Diagnoses Not on filedocumented in this encounter Care Teams Veterinary Virus Serum Inspector Relationship Specialty Start Date End Date Goran Lloyd PCP - General Family Practice 12/29/17 05/21/20 [facility] [address] [place] [address] Annette Alvarez, Nurse Practitioner Clinical Nurse 03/22/17 10/21/20 ELECTRO OPTICS ENGINEER MODEL SET ARTIST Specialist [address] [place], [place] [phone] Jocelyn Davidson RD Business Management Analyst Dietitian, Registered 05/25/[address] [place] [address] documented as of this encounter
--- OUTSIDE RECORDS SUMMARY | 2022-02-09 13:19 | XMS_ITS | Encounter Summary ---
:1965 Author Organization [place] Address [address] [facility] [place] [address] Care Team Providers Name Role Phone Annette Alvarezmamadou ALVAREZ BENDING FRAME OPERATOR Unavailable [phone] Goran Lloyd Primary Care Provider Jocelyn Davidson RD Unavailable Reason for Visit Reason Comments Diabetes Encounter Details Date Type Department Care Team Description 11/22/2019 Office Visit [facility] AlvarezAnnette Type 1 ro[facility] [place] KIM Monroe BENDING FRAME OPERATOR with complications (H) [address] [facility] [id number] [place] [address] (Primary Dx) [place] [address] [phone] Social History Tobacco Use Types Packs/Day Years Used Date Smoking Tobacco: Never Smokeless Tobacco: Never Alcohol Use Standard Drinks/Week Comments Yes 0 (1 standard drink = 0.6 oz pure alcoho l) rare Sex Assigned at Date Recorded Female 03/04/2020 12:33 PM CHIEF BANK EXAMINER documented as of this encounter Last Filed [...] Primary documented in this encounter Care Teams Cooler Tender Relationship Specialty Start Date End Date Goran Lloyd PCP - General Family Practice 12/29/17 05/21/[address] [address] Annette Alvarez, Nurse Practitioner Clinical Nurse 03/22/17 10/21/20 KIM BENDING FRAME OPERATOR Specialist [address] [place] [address] Hunter Guide Dietitian, Registered 05/25/18 [facility] [place] [address] documented as of this encounter
--- OUTSIDE RECORDS SUMMARY | 2022-02-09 13:19 | XMS_ITS | Encounter Summary ---
:1965 Author Organization [facility] Address [address] [facility] [place] [address] Care Team Providers Name Role Phone Annette Alvarez KIM BONDING MOLDER Unavailable [phone] Goran Lloyd Primary Care Provider Jocelyn Davidson RD Unavailable Reason for Visit Reason Onset Date Comments Diabetes Education 07/31/2018 appointment- pump fa ilure Encounter Details Date Type Department Care Team Description 07/31/2018 Telephone [facility] Jocelyn Davidson RD Diabetes Education Clinic [facility] (appointment- pump [address] failure) [place] [address] [address] [place] [address] Social History Tobacco Use Types Packs/Day Years Used Date Smoking Tobacco: Never Smokeless Tobacco: Never Alcohol Use Standard Drinks/Week Comments Yes 0 (1 standard drink = 0.6 oz pure alcoho l) rare Sex Assigned at Date Recorded Female 03/04/2020 12:33 PM 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 Let pt know that singer songwriter could see her at 9:30 or 1:30 on Tue, 08/02. Pt to call [phone] to confirm if one of those times will work for her. Jocelyn Davidson RD, CDE Diabetes Package Line Relief Operator documented in this encounter Plan of Treatment Not on filedocumented as of this encounter Visit Diagnoses Not on filedocumented in this encounter Care Teams Internal Medicine Physician Relationship Specialty Start Date End Date Goran Lloyd PCP - General Family Practice 12/29/17 05/21/20 [facility] [address] [place] [address] Annette Alvarez, Nurse Practitioner Clinical Nurse 03/22/17 10/21/20 PANEL MAKER BONDING MOLDER Specialist [address] [place] [address] Cad Programmer Dietitian, Registered 05/25/18 [facility] SANTYPLEDGER [place] [address] documented as of this encounter
--- OUTSIDE RECORDS SUMMARY | 2022-02-09 13:19 | XMS_ITS | Encounter Summary ---
:1965 Author Organization [facility] Address [address] [place] [address]. [place] [address] Care Team Providers Name Role Phone Annette Alvarez APRN ZOO CARETAKER Unavailable Goran Lloyd Primary Care Provider Jocelyn Davidson RD Unavailable Encounter Details Date Type Department Care Team Description 10/11/2018 Travel Social History Tobacco Use Types Packs/Day Years Used Date Smoking Tobacco: Never Smokeless Tobacco: Never Alcohol Use Standard Drinks/Week Comments Yes 0 (1 standard drink = 0.6 oz pure alcoho l) rare Sex Assigned at Date Recorded Female 03/04/2020 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Y AIR INTERCEPT CONTROLLER documented as of this encounter Plan of Treatment Not on filedocumented as of this encounter Visit Diagnoses Not on filedocumented in this encounter Care Teams Relay Repairer Relationship Specialty Start Date End Date Goran Lloyd PCP - General Family Practice 12/29/17 05/21/20 [facility] [address] [place] [address] Annette Alvarez, Nurse Practitioner Clinical Nurse 03/22/17 10/21/20 SCRAP PICKER ZOO CARETAKER Specialist [address] [place], [place] [phone] Jocelyn Davidson RD Detail Sergeant Dietitian, Registered 05/25/[address] [place] [address] documented as of this encounter
--- OUTSIDE RECORDS SUMMARY | 2022-02-09 13:19 | XMS_ITS | Encounter Summary ---
:1965 Author Organization [facility] Address [address] [place] [address]. [place] [address] Care Team Providers Name Role Phone Annette Alvarez SHAREPOINT CONSULTANT ELEMENT BURNER Unavailable [phone] Goran Lloyd Primary Care Provider Jocelyn Davidson RD Unavailable Encounter Details Date Type Department Care Team Description 08/16/2019 Travel Social History Tobacco Use Types Packs/Day Years Used Date Smoking Tobacco: Never Smokeless Tobacco: Never Alcohol Use Standard Drinks/Week Comments Yes 0 (1 standard drink = 0.6 oz pure alcoho l) rare Sex Assigned at Date Recorded Female 03/04/2020 12:33 PM VULNERABILITY ASSESSMENT ANALYST COVID-19 Exposure Response Date Recorded In the last month, have you been in contact with No / Unsure 08/16/2019 5:23 PM CDT someone who was confirmed or suspected to have Coronavirus / COVID-19? documented as of this encounter Plan of Treatment Not on filedocumented as of this encounter Visit Diagnoses Not on filedocumented in this encounter Care Teams Petrography Teacher Relationship Specialty Start Date End Date Goran Lloyd PCP - General Family Practice 12/29/17 05/21/[address] [address] Annette Alvarez, Nurse Practitioner Clinical Nurse 03/22/17 10/21/20 SHAREPOINT CONSULTANT ELEMENT BURNER Specialist [address] [place] [address] Cloud Solutions Architect Dietitian, Registered 05/25/18 [facility] [address] [id number] documented as of this encounter
--- OUTSIDE RECORDS SUMMARY | 2022-02-09 13:19 | XMS_ITS | Encounter Summary ---
:1965 Author Organization [place] Address [address] [place] [address]. [place] [address] Care Team Providers Name Role Phone Annette Alvarez DRESS DESIGNER MEDICAL RECORD ASSISTANT Unavailable [phone] Goran Lloyd Primary Care Provider Joceyln Davidson RD Unavailable Encounter Details Date Type Department Care Team Description 02/03/2020 Travel Social History Tobacco Use Types Packs/Day Years Used Date Smoking Tobacco: Never Smokeless Tobacco: Never Alcohol Use Standard Drinks/Week Comments Yes 0 (1 standard drink = 0.6 oz pure alcoho l) rare Sex Assigned at Date Recorded Female 03/04/2020 12:33 PM KNOWLEDGE MANAGEMENT ADVISOR COVID-19 Exposure Response Date Recorded In the last month, have you been in contact with No / Unsure 02/03/2020 12:21 PM KNOWLEDGE MANAGEMENT ADVISOR someone who was confirmed or suspected to have Coronavirus / COVID-19? documented as of this encounter Plan of Treatment Not on filedocumented as of this encounter Visit Diagnoses Not on filedocumented in this encounter Care Teams Hourly Shift Manager Relationship Specialty Start Date End Date Goran Lloyd PCP - General Family Practice 12/29/17 05/21/[address] [address] Annette Alvarez, Nurse Practitioner Clinical Nurse 03/22/17 10/21/20 DRESS DESIGNER MEDICAL RECORD ASSISTANT Specialist [address] [place] [address] Packager And Strapper Dietitian, Registered 05/25/18 [facility] [place] [place] [address] documented as of this encounter
--- OUTSIDE RECORDS SUMMARY | 2022-02-09 13:19 | XMS_ITS | Encounter Summary ---
:1965 Author Organization [place] Address [address] [facility] [place] [address] Care Team Providers Name Role Phone Annette Alvarez KIM RODRIGUEZ Unavailable Goran Lloyd Primary Care Provider Jocelyn Davidson RD Unavailable Tamar Murphy APRN WASHING MACHINE INSTALLER Unavailable Reason for Referral Diagnostic Imaging XR (Routine) - Closed Specialty Diagnoses / Procedures Referred By Contact Refer red To Contact Diagnoses Cough Tamar Murphy APRN CNP Procedures XR Chest [address] [place] [address] [phone] Referral ID Status Reason Start Date Expiration Date Visits Requ ested Visits Authorized [id number] Closed 02/26/2020 02/25/2021 1 1 ESSOR OF JOURNALISM Reason for Visit Reason Comments Cough Encounter Details Date Type Department Care Team Description 02/26/2020 Office Visit [facility] Tamar Murphy Cough (Primary Dx) [place] KIM WASHING MACHINE INSTALLER [address] [address] [phone] Social History Tobacco Use Types Packs/Day Years Used Date Smoking Tobacco: Never Smokeless Tobacco: Never Alcohol Use Standard Drinks/Week Comments Yes 0 (1 standard drink = 0.6 oz pure alcoho l) rare Sex Assigned at Date Recorded Female 03/04/2020 12:33 PM PROFESSOR OF JOURNALISM COVID-19 Exposure Response Date Recorded In the last month, have you been in contact with No / Unsure 02/03/2020 12:21 PM PROFESSOR OF JOURNALISM someone who was confirmed or suspected to have Coronavirus / COVID-19? documented as of this encounter Last Filed Vital Signs Vital Sign Reading Time Taken Comments Blood Pressure 138/70 02/26/2020 1:22 PM PROFESSOR OF JOURNALISM Pulse 67 02/26/2020 1:22 PM PROFESSOR OF JOURNALISM Temperature 37 ??C (98.6 ??F) 02/26/2020 1:22 PM PROFESSOR OF JOURNALISM Respiratory Rate 19 02/26/2020 1:31 PM PROFESSOR OF JOURNALISM Oxygen Saturation 96% 02/26/2020 1:22 PM PROFESSOR OF JOURNALISM Inhaled Oxygen Concentration - - Weight 113.4 kg (250 lb) 02/26/2020 1:22 PM PROFESSOR OF JOURNALISM Height 180.3 cm (5' 11) 02/26/2020 1:22 PM PROFESSOR OF JOURNALISM Body Mass Index 34.87 02/26/2020 1:22 PM PROFESSOR OF JOURNALISM documented in this encounter Patient Instructions Patient InstructionsGiTamar alston APRN CNP - 02/26/2020 1:30 PM CST Prednisone 2 tabs (40 mg) once daily x 5 days. No NSAID use while using prednisone (Advil, ibuprofen, naproxen, Aleve) Consider nasal irrigation (Avon Pot) Benzonatate 1 tab two times per day as needed for cough. ESSOR OF JOURNALISM documented in this encounter Progress Notes Tamar [...] (Advil, ibuprofen, naproxen, Aleve) Consider nasal irrigation (Avon Pot) Benzonatate 1 tab two times per day as needed for cough. Return in about 2 weeks (around 03/11/2020) for if not improved. . Tamar Murphy APRN CNP [facility] ESSOR OF JOURNALISM documented in this encounter Plan of Treatment Not on filedocumented as of this encounter Procedures Procedure Name Priority Date/Time Associated Diagnosis Comme nts XR CHEST 2 VIEWS Routine 02/26/2020 2:12 PM Cough Resul ts for this PROFESSOR OF JOURNALISM procedure are i n the results section. COVID-19 VIRUS Routine 02/26/2020 1:00 PM Cough Results for this (CORONAVIRUS) BY PROFESSOR OF JOURNALISM procedure a re in PCR the results section. documented in this encounter Results XR Chest 2 Views (02/26/2020 2:12 PM PROFESSOR OF JOURNALISM) Anatomical Region Laterality Modality Chest Computed Radiography Specimen (Source) Anatomical Location Collection Method / Collectio n Time Received Time / Laterality Volume Impressions 02/26/2020 2:25 PM PROFESSOR OF JOURNALISM IMPRESSION: PA and lateral views of the chest. Lungs are clear. Heart is normal in size. No effusions are evid ent. No pneumothorax. Degenerative spine changes are noted. Ol d healed lateral right upper rib fractures and mid left rib fractures are again noted. TONIO CRANE MD Narrative 02/26/2020 2:25 PM PROFESSOR OF JOURNALISM CHEST TWO VIEWS ??02/26/2020 2:12 PM HISTORY: [...] again noted. TONIO CRANE MD Tamar Murphy APRN, CNP IMG DIAGNOSTIC IMAGING ORDER DEJUAN Symptomatic COVID-19 Virus (Coronavirus) by PCR (02/26/2020 1:00 PM PROFESSOR OF JOURNALISM) [facility] Method Time Signature COVID-19 Nasopharyngeal 02/26/2020 [facility] Virus PCR to 3:08 PM PROFESSOR OF JOURNALISM [facility] Source COVID-19 Not Detected 02/27/2020 [facility] Virus PCR to 4:31 PM PROFESSOR OF JOURNALISM [facility] Result LABORATORY, [facility] Comment: Collection of multiple specimens from [...] and amplified using the HDPCR SARS-CoV-2 assay ([employer] The HDPCRTM JAYDEN S-CoV-2 assay is a reverse search engine optimization manager real-time polymerase chain reaction (qRT-PCR) test intended [...] (Centers for Disease Control) Testing performed by [facility] ([facility]) [address] [facility] [address] [facility] [address] The test performance characteristics wer e determined [...] Specimen from 02/26/2020 1:00 02/26/2020 nasopharyngeal PM PROFESSOR OF JOURNALISM 3:08 PM PROFESSOR OF JOURNALISM structure (specimen) Tamar Murphy APRN WASHING MACHINE INSTALLER LAB - MICRO GENERAL ORDERABL ES Performing Organization Address City/State/ZIP Code Phon e Number [facility] [place] [address] DIAGNOSTIC LABORATORY, [address] [facility] [address] [address] [place] documented in this encounter Visit Diagnoses Diagnosis Cough - Primary documented in this encounter Additional Health Concerns Infection Onset Date Last Indicated Resolved Time Rule Out COVID-19 02/26/2020 02/26/2020 02/27/2020 4:3 2 PM PROFESSOR OF JOURNALISM Assessment Noted Time PHQ-9 Depression Total Score: 0 02/26/2020 1:30 PM PROFESSOR OF JOURNALISM documented as of this encounter Care Teams Flight Director Relationship Specialty Start Date End Date Goran Lloyd PCP - General Family Practice 12/29/17 05/21/[address] [address] Annette Alvarez, Nurse Practitioner Clinical Nurse 03/22/17 10/21/20 COMPOSITE BOAT BUILDER WASHING MACHINE INSTALLER Specialist [address] [place] [address] Stave Cutting Supervisor Dietitian, Registered 05/25/18 [facility] [address] [place] [address] [place] [address] Tamar Murphy APRN Assigned PCP 02/08/20 1 WASHING MACHINE INSTALLER [address] [place] [address] documented as of this encounter
--- OUTSIDE RECORDS SUMMARY | 2022-02-09 13:19 | XMS_ITS | Encounter Summary ---
:1965 Author Organization [place] Address [address] [place] [address]. [place] [address] Care Team Providers Name Role Phone Annette Alvarez APRN HOME CARE NURSE Unavailable Goran Lloyd Primary Care Provider Jocelyn Davidson RD Unavailable Encounter Details Date Type Department Care Team Description 07/19/2018 Travel Social History Tobacco Use Types Packs/Day Years Used Date Smoking Tobacco: Never Smokeless Tobacco: Never Alcohol Use Standard Drinks/Week Comments Yes 0 (1 standard drink = 0.6 oz pure alcoho l) rare Sex Assigned at Date Recorded Female 03/04/2020 12:33 PM FLAT SURFACER documented as of this encounter Plan of Treatment Not on filedocumented as of this encounter Visit Diagnoses Not on filedocumented in this encounter Care Teams Electronics Engineering Professor Relationship Specialty Start Date End Date Goran Lolyd PCP - General Family Practice 12/29/17 05/21/20 [facility] [address] [place] [address] Annette Alvarez, Nurse Practitioner Clinical Nurse 03/22/17 10/21/20 SOFTWARE TEST SPECIALIST HOME CARE NURSE Specialist [address] [place], [place] [phone] Jocelyn Davidson RD Merchandise Appraiser Dietitian, Registered 05/25/[address] [place] [address] documented as of this encounter
--- OUTSIDE RECORDS SUMMARY | 2022-02-09 13:19 | XMS_ITS | Encounter Summary ---
:1965 Author Organization [place] Address [address] [facility] [place] [address] Care Team Providers Name Role Phone Annette Alvarez APRN AIRCRAFT INSTRUMENT MECHANIC Unavailable [phone] Goran Lloyd Primary Care Provider Jocelyn Davidson RD Unavailable Reason for Visit Reason Onset Date Comments Patient/info Update 08/01/2018 new pump Encounter Details Date Type Department Care Team Description 08/01/2018 Telephone [facility] Jocelyn Davidson, RENATA Patient/info Update [facility] (new pump) [address] [place] [address] [id number] [phone] Social History Tobacco Use Types Packs/Day Years Used Date Smoking Tobacco: Never Smokeless Tobacco: Never Alcohol Use Standard Drinks/Week Comments Yes 0 (1 standard drink = 0.6 oz pure alcoho l) rare Sex Assigned at Date Recorded Female 03/04/2020 12:33 PM CHILDREN'S COUNSELOR documented as of this encounter Miscellaneous Notes [...] needs her settings. Please advise Ilda Smith Teachers Assistant documented in this encounter Plan of Treatment Not on filedocumented as of this encounter Visit Diagnoses Not on filedocumented in this encounter Care Teams Instructional Interventionist Relationship Specialty Start Date End Date Goran Lloyd PCP - General Family Practice 12/29/17 05/21/[address] [address] Annette Alvarez, Nurse Practitioner Clinical Nurse 03/22/17 10/21/20 RAILCAR SWITCHER AIRCRAFT INSTRUMENT MECHANIC Specialist [address] [place], [place] [id number] Jocelyn Davidson RD Appliance Service Technician Dietitian, Registered 05/25/[address] [facility] [place] [address] documented as of this encounter
--- OUTSIDE RECORDS SUMMARY | 2022-02-09 13:19 | XMS_ITS | Encounter Summary ---
:1965 Author Organization [place] Address [address] [place] [address]. [place] [address] Care Team Providers Name Role Phone Annette Alvarez APRN DEICER REPAIRER PNEUMATIC Unavailable Goran Lloyd Primary Care Provider Jocelyn Davidson RD Unavailable Encounter Details Date Type Department Care Team Description 08/02/2018 Travel Social History Tobacco Use Types Packs/Day Years Used Date Smoking Tobacco: Never Smokeless Tobacco: Never Alcohol Use Standard Drinks/Week Comments Yes 0 (1 standard drink = 0.6 oz pure alcoho l) rare Sex Assigned at Date Recorded Female 03/04/2020 12:33 PM RESOURCING CONSULTANT documented as of this encounter Plan of Treatment Not on filedocumented as of this encounter Visit Diagnoses Not on filedocumented in this encounter Care Teams Computer Designer Relationship Specialty Start Date End Date Goran Lloyd PCP - General Family Practice 12/29/17 05/21/20 [facility] [address] [place] [address] Annette Alvarez, Nurse Practitioner Clinical Nurse 03/22/17 10/21/20 APPLICATIONS SUPPORT SPECIALIST DEICER REPAIRER PNEUMATIC Specialist [address] [place], [place] [phone] Jocelyn Davidson RD Gta Dietitian, Registered 05/25/[address] [place] [address] documented as of this encounter
--- OUTSIDE RECORDS SUMMARY | 2022-02-09 13:19 | XMS_ITS | Encounter Summary ---
:1965 Author Organization [place] Address [address] [facility] [place] [address] Care Team Providers Name Role Phone Annette Alvarez APRN BOOK SEWER Unavailable [phone] Goran Lloyd Primary Care Provider Jocelyn Davidson RD Unavailable Reason for Visit Reason Comments Diabetes Education Encounter Details Date Type Department Care Team Description 07/28/2018 [facility] Jocelyn Davidson, Diabet es Education Health/[place] Visit [address] [facility] [place] [address] [place] [phone] [place] [address] Social History Tobacco Use Types Packs/Day Years Used Date Smoking Tobacco: Never Smokeless Tobacco: Never Alcohol Use Standard Drinks/Week Comments Yes 0 (1 standard drink = 0.6 oz pure alcoho l) rare Sex Assigned at Date Recorded Female 03/04/2020 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 Diabetes Support Resources: T:Connect [employer] Dexcom Clarity Follow up: Call ([phone]), e-mail ( ), or send Pod Innst message to educator with blood sugar readings in 1 week. Please schedule a follow up sometime soon after your knee surgery. Bring blood glucose meter and logbook with you to all doctor and follow-up appointments. Jocelyn Davidson RD, LD, CDE Diabetes Mold Machine Operator [facility] for [facility]: For Your Diabetes or Nutrition Education Appointments Call: [phone] For Diabetes or Nutrition Related Questions Call or Email: [phone] If you need a medication refill please [...] No Other concerns:: None Cultural Influences/Ethnic Background: Guyanese Patient seen today for Insulin Pump CGM [...] Healthy Eating Healthy Eating Assessed Today: Yes Cultural/confucianism diet restrictions?: No Patient on a regular [...] upcoming knee surgery. Diabetes Support Resources: T:Connect [employer] Dexcom Clarity Time Spent: 60 minutes Encounter [...] Primary documented in this encounter Care Teams Architectural Designer Relationship Specialty Start Date End Date Goran Lloyd PCP - General Family Practice 12/29/17 05/21/[address] [address] Annette Alvarez, Nurse Practitioner Clinical Nurse 03/22/17 10/21/20 LICENSED MENTAL HEALTH COUNSELOR BOOK SEWER Specialist [address] [place] [address] Receiving Associate Dietitian, Registered 05/25/18 [place] [address] [place] [address] [place] CAR[place] [address] documented as of this encounter
--- OUTSIDE RECORDS SUMMARY | 2022-02-09 13:19 | XMS_ITS | Encounter Summary ---
:1965 Author Organization [place] Address [address] [facility] [place] [address] Care Team Providers Name Role Phone Annette Alvarez APRN SIGNING TEACHER Unavailable [phone] Goran Lloyd Primary Care Provider Jocelyn Davidson RD Unavailable Reason for Visit Reason Onset Date Comments Medication Refill 12/16/2018 NOVOLOG VIAL 100 UNI T/ML soln Encounter Details Date Type Department Care Team Description 12/16/2018 Refill [facility] Annette Alvarez, Medication Refill [place] ALVAREZ SIGNING TEACHER (NOVOLOG VIAL 100 [address] [place] [address] [address]/ML soln) [place], [place] [address] [address] [place] [address] [phone] Social History Tobacco Use Types Packs/Day Years Used Date Smoking Tobacco: Never Smokeless Tobacco: Never Alcohol Use Standard Drinks/Week Comments Yes 0 (1 standard drink = 0.6 oz pure alcoho l) rare Sex Assigned at Date Recorded Female 03/04/2020 12:33 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
--- OUTSIDE RECORDS SUMMARY | 2022-02-09 13:19 | XMS_ITS | Encounter Summary ---
:1965 Author Organization [place] Address [address] [place] [address] Care Team Providers Name Role Phone Annette Alvarez APRN CLOCK AND WATCH HANDS MOUNTER Unavailable Goran Lloyd Primary Care Provider Deidre Kirkland RD Unavailable Reason for Visit Reason Onset Date Comments Diabetes Education 09/01/2018 Encounter Details Date Type Department Care Team Description 09/01/2018 Telephone [facility] Deidre Kirkland RD Diabetes Education [facility] - [address] [phone] Social History Tobacco Use Types Packs/Day Years Used Date Smoking Tobacco: Never Smokeless Tobacco: Never Alcohol Use Standard Drinks/Week Comments Yes 0 (1 standard drink = 0.6 oz pure alcoho l) rare Sex Assigned at Date Recorded Female 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 Sending rx for insulin syringes to [facility] pharmacy. Pt planning to upload her pump in next 1-2 weeks as requested by CDE. Deidre Kirkland RD, CDE Diabetes Cloth Shearing Supervisor Telephone Encounter - Deidre Kirkland RD - 09/01/2018 1:44 PM CDT Noted a missed call from patient (per caller ID). Attempted to call patient back- no answer- left message encouraging her to send a 2Vancouvert message. Otherwise, will attempt to reach once more before end of day. Deidre Kirkland RD, JENNE Diabetes Cloth Shearing Supervisor Addendum Note - Deidre Kirkland RD - 09/01/2018 1:44 PM CDT Addended by: DEIDRE KIRKLAND on: 09/01/2018 04:05 PM Modules accepted: Orders documented in this encounter Plan of Treatment Not on filedocumented as of this encounter Visit Diagnoses Diagnosis Type 1 diabetes mellitus with complicati ons (H) - Primary documented in this encounter Care Teams Expanded Duty Dental Assistant Relationship Specialty Start Date End Date Goran Lloyd PCP - General Family Practice 12/29/17 05/21/20 [facility] [address] [place] [address] Annette Alvarez, Nurse Practitioner Clinical Nurse 03/22/17 10/21/20 MANAGEMENT SERVICES TECHNICIAN CLOCK AND WATCH HANDS MOUNTER Specialist [address] [place], [place] [phone] Deidre Kirkland RD Category Development Analyst Dietitian, Registered 05/25/18 [facility] [address] [place] [address] documented as of this encounter
--- OUTSIDE RECORDS SUMMARY | 2022-02-09 13:19 | XMS_ITS | Encounter Summary ---
:1965 Author Organization [place] Address [address] [facility] [place] [address] Care Team Providers Name Role Phone Annette Alvarezmamadou ALVAREZ EX ASSISTANT/PROGRAM DIRECTOR Unavailable Goran Lloyd Primary Care Provider Jocelyn Davidson RD Unavailable Encounter Details Date Type Department Care Team Description 08/16/2019 Hospital Encounter [facility] Goran Lloyd 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 Here's a copy of the results for [...] athologist Signature Cortisol Serum 14.2 4 - 08/16/2019 [facility] ug/dL 10:27 PM CDT [facility] Comment: 8 AM Cortisol Reference Range = 4-22 ug/ dL 4 PM Cortisol Reference Range = 3-17 ug/ dL Specimen Anatomical Collection Method Collection Time Receive d Time (Source) Location / / Volume Laterality Blood specimen 08/16/2019 5:57 PM 020 5:58 (specimen) CDT PM CDT Annette Alvarez APRN, CNP LAB - BLOOD ORDERABLES Performing Organization Address City/State/ZIP Code Phon e Number [facility] [address] [place] [address] [facility] (ABNORMAL) Renal panel (Alb, BUN, Ca, Cl, CO2, Creat, Gluc, Phos, K, Na) (08/16/2019 5:57 PM [facility]) Analysis Performed At [facility] Time Signature Sodium 136 133 - 144 08/16/2019 [place] mmol/L 6:32 PM [facility] Potassium 4.6 3.4 - 5.3 08/16/2019 [facility] mmol/L 6:32 PM [facility] Chloride 107 94 - 109 08/16/2019 [facility] mmol/L 6:32 PM [facility] Carbon Dioxide 24 20 - 32 08/16/2019 [facility] mmol/L 6:39 PM [facility] Anion Gap 5 3 - 14 08/16/2019 [place] mmol/L 6:39 PM [facility] Glucose 166 (H) 70 - 99 08/16/2019 [place] mg/dL 6:39 PM [facility] Urea Nitrogen 21 7 - 30 08/16/2019 [place] mg/dL 6:39 PM [facility] Creatinine 1.41 (H) 0.52 - 08/16/2019 [facility] 1.04 mg/dL 6:39 PM [facility] GFR Estimate 42 (L) >60 08/16/2019 [place] mL/min/{1. 6:39 PM [facility] 73_m2} [facility] Comment: Non GFR Calc Starting 03/14/2018, serum creatinine ba sed estimated GFR (eGFR) will be calculated using the Chronic Kidney Dise [facility] Epidemiology Collaboration (CKD-EPI) equation. GFR Estimate If 49 (L) >60 mL/min/{1.73_m2} 08/16/2019 6: 39 PM [place] Black [facility] Comment: GFR Calc Starting 03/14/2018, serum creatinine ba sed estimated GFR (eGFR) will be calculated using the Chronic Kidney Dise [facility] Epidemiology Collaboration (CKD-EPI) equation. Calcium 9.0 8.5 - 10.1 mg/dL 08/16/2019 6:39 PM [facility] Phosphorus 3.4 2.5 - 4.5 mg/dL 08/16/2019 6:39 PM [facility] Albumin 3.9 3.4 - 5.0 g/dL 08/16/2019 6:39 PM CDT [facility] Specimen Anatomical Collection Method Collection Time Receive d Time (Source) Location / / Volume Laterality Blood specimen 08/16/2019 5:57 PM 020 5:58 (specimen) CDT PM CDT Annette Alvarez APRN EX ASSISTANT/PROGRAM DIRECTOR LAB - BLOOD ORDERABLES Performing Organization Address City/State/ZIP Code Phon e Number [facility] [address] [place] [address] [facility] [address] [place], [place] [address], [facility] [phone] [facility] [address] [place] [address], [facility] documented in this encounter Visit Diagnoses Diagnosis Uncontrolled type 1 diabetes with renal manifestation Type I (juvenile type) diabetes mellitus with renal manifestations, uncontrolled Abnormal weight gain documented in this encounter Care Teams Venue Coordinator Relationship Specialty Start Date End Date Goran Lloyd PCP - General Family Practice 12/29/17 05/21/[address] [address] Annette Alvarez, Nurse Practitioner Clinical Nurse 03/22/17 10/21/20 DOCKING SAW OPERATOR EX ASSISTANT/PROGRAM DIRECTOR Specialist [address] [place] [address] Marina Porter Dietitian, Registered 05/25/18 [facility] [address] [place] [address] [place] [address] documented as of this encounter
--- OUTSIDE RECORDS SUMMARY | 2022-02-09 13:19 | XMS_ITS | Encounter Summary ---
:1965 Author Organization [place] Address [address] [facility] [place] [address] Care Team Providers Name Role Phone Annette Alvarez APRN, CNP Unavailable [phone] Goran Lloyd Primary Care Provider Jocelyn Davidson RD Unavailable Reason for Referral Vision Services (Routine) - Closed Specialty Diagnoses / Procedures Referred By Contact Refer red To Contact Diagnoses Type 1 diabetes mellitus with complications (H) Annette Alvarez [facility], [address] [place], [place] [phone] [address] [place] [address] Phone: Referral ID Status Reason Start Date Expiration Date Visits Requ ested Visits Authorized [id number] Closed 11/07/2019 11/06/2020 1 1 Reason for Visit Reason Comments Diabetes Thyroid Disease Encounter Details Date Type Department Care Team Description 11/07/2019 Office Visit [facility] Annette Nuñez Type 1 rohan betes mellitus with complications (H) (Primary Dx); [facility] [place] KIM Monroe CNP Benign essential hypertension [address] [place] [phone] Social History Tobacco Use Types Packs/Day Years Used Date Smoking Tobacco: Never Smokeless Tobacco: Never Alcohol Use Standard Drinks/Week Comments Yes 0 (1 standard drink = 0.6 oz pure alcoho l) rare Sex Assigned at Date Recorded Female 03/04/2020 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 Intimate partner violence Fear of current or ex partner: Not on file Emotionally abused: Not on file Physically abused: Not on file Forced sexual activity: Not on file Other Topics Concern ??? Parent/sibling w/ CABG, FL or angioplasty before 65F 55M? Not Asked [...] More than 50% of the time spent with??Ms.??Tucker??on counseling / coordinating her??care??and discussing the above plan of care. The patient indicates understanding of the above issues and agrees withthe plan set forth. ??Total face to face??time was 25??minutes. Follow-up: 3 months Annette Alvarez NP Endocrinology [facility] CC: documented in this encounter Miscellaneous Notes Result Encounter Note - Annette Alvarez APRN CNP - 11/07/2019 1:30 PM CDT Marnie, Here is your recent test results for your records. Annette Alvarez NP Endocrinology documented in this encounter Plan of Treatment Scheduled Referrals Name Type Priority Associated Diagnoses Order S [place] OPHTHALMOLOGY ADULT Referral Routine Type 1 diabetes [...] 7.3 (H) 0 - 5.6 % 11/07/2019 [place] 1:29 PM CDT [facility] Comment: Normal <5.7% Prediabetes 5.7-6.4% ??Diab etes 6.5% or higher - adopted from ADA consensus guidelines. Specimen Anatomical Collection Method Collection Time Receive d Time (Source) Location / / Volume Laterality Blood specimen 11/07/2019 1:17 PM 020 1:18 (specimen) CDT PM CDT Annette Alvarez APRN [facility] - BLOOD ORDERABLES Performing Organization Address City/State/ZIP Code Phon e Number [facility] [address] [place] [address] documented in this encounter Visit Diagnoses Diagnosis Type 1 diabetes mellitus with complicati ons (H) - Primary Benign essential hypertension Essential hypertension, benign documented in this encounter Care Teams Carpenter Labor Supervisor Relationship Specialty Start Date End Date Goran Lloyd PCP - General Family Practice 12/29/17 05/21/20 [facility] [address] [place] [address] Annette Alvarez, Nurse Practitioner Clinical Nurse 03/22/17 10/21/20 FIELD HOCKEY COACH [facility] Specialist [address] [place] [address] Physician Intensivist Dietitian, Registered 05/25/18 [facility] [address] [place] [address] [place] [address] documented as of this encounter
--- OUTSIDE RECORDS SUMMARY | 2022-02-09 13:19 | XMS_ITS | Encounter Summary ---
:1965 Author Organization [place] Address [address] [place] [address]. 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 documented as of this encounter Plan of Treatment Not on filedocumented as of this encounter Visit Diagnoses Not on filedocumented in this encounter Care Teams Pricing Specialist Relationship Specialty Start Date End Date Goran Lloyd PCP - General Family Practice 12/29/17 05/21/20 [facility] [address] [place] [address] Annette Alvarez, Nurse Practitioner Clinical Nurse 03/22/17 10/21/20 ADMISSIONS SPECIALIST FEDERAL JAVA DEVELOPER Specialist [address] [place], [place] [phone] Jocelyn Davidson RD Office 365 Consultant Dietitian, Registered 05/25/[address] [address] documented as of this encounter
--- OUTSIDE RECORDS SUMMARY | 2022-02-09 13:19 | XMS_ITS | Encounter Summary ---
:1965 Author Organization [place] Address [address] [facility] [place] [address] Care Team Providers Name Role Phone Annette Alvarez APRN ELECTRICAL AND RADIO AIRCRAFT MECHANIC Unavailable [phone] Goran Lloyd Primary Care Provider Jocelyn Davidson RD Unavailable Reason for Visit Reason Onset Date Comments Diabetes 01/25/2020 Encounter Details Date Type Department Care Team Description 01/25/2020 Telephone [facility] Annette Alvarez, Diabetes [place] INSTRUMENT LENS GRINDER APPRENTICE ELECTRICAL AND RADIO AIRCRAFT MECHANIC [phone] [place] [address] (Wo rk) Social History Tobacco Use Types Packs/Day Years Used Date Smoking Tobacco: Never Smokeless Tobacco: Never Alcohol Use Standard Drinks/Week Comments Yes 0 (1 standard drink = 0.6 oz pure alcoho l) rare Sex Assigned at Date Recorded Female 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 Annette Alvarez NP Endocrinology [facility] ATTORNEY Telephone Encounter - Mimi Cyr CMA - [...] on filedocumented in this encounter Care Teams Grain Farmworker Relationship Specialty Start Date End Date Goran Lloyd PCP - General Family Practice 12/29/17 05/21/20 [facility] [address] [place] [address] Annette Alvarez, Nurse Practitioner Clinical Nurse 03/22/17 10/21/20 KIM ELECTRICAL AND RADIO AIRCRAFT MECHANIC Specialist [address] [place] [address] Turn Machine Operator Dietitian, Registered 05/25/18 [facility] [address] [place] [address] SHARAN CARSON [phone] documented as of this encounter
--- OUTSIDE RECORDS SUMMARY | 2022-02-09 13:19 | XMS_ITS | Encounter Summary ---
:1965 Author Organization [place] Address [address] [place] [address] Care Team Providers Name Role Phone Annette Alvarez APRN HOME CARE AIDE Unavailable Goran Lloyd Primary Care Provider Jocelyn Davidson RD Unavailable Reason for Visit Reason Comments Diabetes Education Encounter Details Date Type Department Care Team Description 08/02/2018 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 Diabetes Self-Management Education & Support SUBJECTIVE/OBJECTIVE Diabetes education in the past 24mo: (P) Yes Diabetes type: (P) Type 1 Disease course: (P) Getting harder to manage Cultural Influences/Ethnic Background: Spanish Pt seen today to set up T:Slim [...] set changes, tubing fills, etc) Healthy Eating Cultural/samaritan diet restrictions?: (P) No Meal planning: (P) [...] hours Using T:Connect: Yes Dexcom Sharing Code: [id number] Current Treatments: (P) Diet, Insulin Injections, Insulin [...] dentist every 6 months?: (P) Yes Sees paint stock clerk (foot doctor)?: (P) No Healthy Coping Informal [...] knee replacement. Jocelyn Davidson RD, CDE Diabetes First Front Ventilator Time Spent: 60 minutes Encounter Type: Individual [...] Primary documented in this encounter Care Teams Battery Container Inspector Relationship Specialty Start Date End Date Goran Lloyd PCP - General Family Practice 12/29/17 05/21/20 [facility] [address] [place] [address] Annette Alvarez, Nurse Practitioner Clinical Nurse 03/22/17 10/21/20 GEOSPATIAL APPLICATIONS DEVELOPER HOME CARE AIDE Specialist [address] [place], [place] [phone] Jocelyn Davidson RD Building Supplies Salesperson Retail Dietitian, Registered 05/25/18 [facility] [address] [place] [address] SHARAN CARSON [phone] documented as of this encounter
--- OUTSIDE RECORDS SUMMARY | 2022-02-09 13:19 | XMS_ITS | Encounter Summary ---
:1965 Author Organization [place] Address [address] [facility] [place] [address] Care Team Providers Name Role Phone Annette Alvarez APRN DOLLY DRIVER Unavailable Goran Lloyd Primary Care Provider Jocelyn Davidson RD Unavailable Reason for Visit Reason Onset Date Comments Diabetes 02/19/2019 High Blood Sugars Encounter Details Date Type Department Care Team Description 02/19/2019 Telephone [facility] Jocelyn Davidson RD Diabetes (High Blood Clinic [facility] Sugars) [address] [place] [phone] Social History Tobacco Use Types Packs/Day Years Used Date Smoking Tobacco: Never Smokeless Tobacco: Never Alcohol Use Standard Drinks/Week Comments Yes 0 (1 standard drink = 0.6 oz pure alcoho l) rare Sex Assigned at Date Recorded Female 03/04/2020 12:33 PM SEAMER documented as of this encounter Miscellaneous Notes Telephone Encounter - Jocelyn Davidson RD - 02/23/2019 8:25 AM CST See phone encounter 02/21. Jocelyn Davidson RD, CDE Diabetes R Developer ER Telephone Encounter - Jaqui Logan RD - [...] Tuesday. Jaqui Logan MS, RD, LD, CDE ER Telephone Encounter - Goran Madera - 02/19/2019 8:46 AM CST Patient having very high numbers that are not registering on meter. As well as multiple Ketones. Hasbeen going on since Tuesday. Please call to discuss. ER documented in this encounter Plan of Treatment Not on filedocumented as of this encounter Visit Diagnoses Not on filedocumented in this encounter Care Teams Day Camp Counselor Relationship Specialty Start Date End Date Goran Lloyd PCP - General Family Practice 12/29/17 05/21/20 [facility] [address] [place] [address] Annette Alvarez, Nurse Practitioner Clinical Nurse 03/22/17 10/21/20 STORE SHOPPER DOLLY DRIVER Specialist [address] [place] [address] Probation Supervisor Dietitian, Registered 05/25/18 [facility] [place] [id number] documented as of this encounter
--- OUTSIDE RECORDS SUMMARY | 2022-02-09 13:19 | XMS_ITS | Encounter Summary ---
:1965 Author Organization [place] Address [address] [place] [address]. 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 documented as of this encounter Plan of Treatment Not on filedocumented as of this encounter Visit Diagnoses Not on filedocumented in this encounter Care Teams Senior Wind Turbine Technician Relationship Specialty Start Date End Date Goran Lloyd PCP - General Family Practice 12/29/17 05/21/[address] [address] Annette Alvarez, Nurse Practitioner Clinical Nurse 03/22/17 10/21/20 CLEARANCE CENTER MANAGER DIRECTOR WHOLESALE Specialist [address] [place] [address] Staff Respiratory Therapist Dietitian, Registered 05/25/18 [facility] [place] [phone] documented as of this encounter
--- OUTSIDE RECORDS SUMMARY | 2022-02-09 13:19 | XMS_ITS | Encounter Summary ---
:1965 Author Organization [place] Address [address] [place] [address]. [place] [address] Care Team Providers Name Role Phone Annette Alvarez Mabel CLIENT DEVELOPMENT CONSULTANT COLLEGE FOOTBALL COACH Unavailable [phone] Goran Lloyd Primary Care Provider Jocelyn Davidson RD Unavailable Reason for Visit Reason Comments Medication Refill Encounter Details Date Type Department Care Team Description 09/30/2018 Refill [facility] Annette Alvarez, Medication Refill [place] CLIENT DEVELOPMENT CONSULTANT COLLEGE FOOTBALL COACH [address] [phone] [place] [address] (Wo rk) Social History Tobacco Use Types Packs/Day Years Used Date Smoking Tobacco: Never Smokeless Tobacco: Never Alcohol Use Standard Drinks/Week Comments Yes 0 (1 standard drink = 0.6 oz pure alcoho l) rare Sex Assigned at Date Recorded Female 03/04/2020 12:33 PM 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
--- OUTSIDE RECORDS SUMMARY | 2022-02-09 13:19 | XMS_ITS | Encounter Summary ---
:1965 Author Organization [place] Address [address] [place] [address]. [place] [address] Care Team Providers Name Role Phone Annette Alvarez APRN PACKAGER MACHINE Unavailable [phone] Goran Lloyd Primary Care Provider Jocelyn Davidson RD Unavailable Reason for Referral Diagnostic Imaging XR (Routine) - Closed Specialty Diagnoses / Procedures Referred By Contact Refer red To Contact Radiology. Diagnoses Positive QuantiFERON-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 Mj Tenorio MD Rh Xray Procedures XR Chest 1 View, [employer] [address] [facility] [place] [address] [address] [place] [address] Phone: Fax: Referral ID Status Reason Start Date Expiration Date Visits Requ ested Visits Authorized [id number] Closed 08/24/2019 08/23/2020 1 1 Reason for Visit Diagnostic Imaging XR (Routine) - Closed Specialty Diagnoses / Procedures Referred By Contact Refer red To Contact Radiology. Diagnoses Positive QuantiFERON-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 Mj Tenorio MD Rh Xray Procedures XR Chest 1 View, [employer] [address] [place] [address] [address] [place] [address] Phone: Fax: Referral ID Status Reason Start Date Expiration Date Visits Requ ested Visits Authorized [id number] Closed 08/24/2019 08/23/2020 1 1 Encounter Details Date Type Department Care Team Description 08/24/2019 Hospital Encounter [facility] Mj Tenorio Positive [facility] MD Olegario QuantiFERON-TB Gold [address] [facility] [address] test [facility] [address] [place], [place] [phone] Social History Tobacco Use Types Packs/Day Years Used Date Smoking Tobacco: Never Smokeless Tobacco: Never Alcohol Use Standard Drinks/Week Comments Yes 0 (1 standard drink = 0.6 oz pure alcoho l) rare Sex Assigned at Date Recorded Female 03/04/2020 12:33 PM KAITARA TARAKA COVID-19 Exposure Response Date Recorded In the [...] hours Using T:Connect: Yes Dexcom Sharing Code: [id number] insulin syringe-needle Use 1 syringe as 20 [...] osis documented in this encounter Care Teams [employer] Principal Relationship Specialty Start Date End Date Goran Lloyd PCP - General Family Practice 12/29/17 05/21/[address] [address] Annette Alvarez, Nurse Practitioner Clinical Nurse 03/22/17 10/21/20 PROGRAM DIRECTOR CABLE TELEVISION PACKAGER MACHINE Specialist [address] [place], [place] [phone] Jocelyn Davidson RD Ribbon Hanking Machine Operator Dietitian, Registered 05/25/18 [facility] [place] [address] [place] [address] SHARAN CARSON [id number] documented as of this encounter
--- OUTSIDE RECORDS SUMMARY | 2022-02-09 13:19 | XMS_ITS | Encounter Summary ---
:1965 Author Organization [place] Address [facility] [place] [address] Care Team Providers Name Role Phone Annette Alvarez APRN MOTOR AND CHASSIS INSPECTOR Unavailable [phone] Goran Lloyd Primary Care Provider Jocelyn Davidson Unavailable Reason for Visit Reason Onset Date Comments Forms 11/08/2019 FMLA forms Encounter Details Date Type Department Care Team Description 11/08/2019 Telephone [facility] Annette Alvarez, Forms (FMLA forms) [address] [address] [phone] (Wo rk) Social History Tobacco Use Types Packs/Day Years Used Date Smoking Tobacco: Never Smokeless Tobacco: Never Alcohol Use Standard Drinks/Week Comments Yes 0 (1 standard drink = 0.6 oz pure alcoho l) rare Sex Assigned at Date Recorded Female 03/04/2020 12:33 PM DISPLAY DIRECTOR documented as of this encounter Miscellaneous Notes Telephone Encounter - Annette Alvarez APRN CNP - 11/08/2019 4:25 PM CDT I can only sign FMLA forms for a patient. I am not allowed to sign forms for the spouse of a patient. This would have to be completed by the spouse's health care provider according to our clinical admissions manager. Patient informed. Annette Alvarez NP Endocrinology Telephone [...] on filedocumented in this encounter Care Teams Commercial Electrician Relationship Specialty Start Date End Date Goran Lloyd PCP - General Family Practice 12/29/17 05/21/[address] [address] Annette Alvarez, Nurse Practitioner Clinical Nurse 03/22/17 10/21/20 KIM MOTOR AND CHASSIS INSPECTOR Specialist [address] [place], [place] [phone] Jocelyn Davidson RD Child Care Aide Dietitian, Registered 05/25/18 [facility] [place] SHARAN CARSON [id number] documented as of this encounter
--- OUTSIDE RECORDS SUMMARY | 2022-02-09 13:19 | XMS_ITS | Encounter Summary ---
:1965 Author Organization [place] Address [address] [facility] [place] [address] Care Team Providers Name Role Phone Annette Alvarez APRN SYSTEM SPECIALIST Unavailable [phone] Goran Lloyd Primary Care Provider Jocelyn Davidson RD Unavailable Reason for Visit Reason Comments Diabetes Education Encounter Details Date Type Department Care Team Description 10/11/2018 [facility] Yadira Garcia Diabe gail Education Health/[place] [address] [facility] [phone] [place], [place] (Work) [address] Social History Tobacco Use Types Packs/Day Years Used Date Smoking Tobacco: Never Smokeless Tobacco: Never Alcohol Use Standard Drinks/Week Comments Yes 0 (1 standard drink = 0.6 oz pure alcoho l) rare Sex Assigned at Date Recorded Female 03/04/2020 12:33 PM SECURITY AMBASSADOR documented as of this encounter Progress Notes [...] Getting harder to manage Cultural Influences/Ethnic Background: Uruguayan Pt seen today to set up T:Slim [...] Healthy Eating Healthy Eating Assessed Today: No Cultural/jainism diet restrictions?: No Meal planning: Avoiding sweets, [...] Insulin Time: 4 hours Using T:Connect: Yes Spherix Sharing Code: [id number] Current Treatments: Diet, Insulin Injections, Insulin Pump [...] Sees dentist every 6 months?: Yes Sees car barn laborer (foot doctor)?: No Healthy Coping Healthy Coping [...] Primary documented in this encounter Care Teams Toy Assembler Wood Relationship Specialty Start Date End Date Goran Lloyd PCP - General Family Practice 12/29/17 05/21/[address] [address] Annette Alvarez, Nurse Practitioner Clinical Nurse 03/22/17 10/21/20 PIPELINE WELDER SYSTEM SPECIALIST Specialist [address] [place], [place] [phone] Jocelyn Davidson RD Breast Splitter Dietitian, Registered 05/25/18 [facility] [place] [address] [place] [address] SHARAN CARSON [phone] documented as of this encounter
--- OUTSIDE RECORDS SUMMARY | 2022-02-09 13:19 | XMS_ITS | Encounter Summary ---
:1965 Author Organization [place] Address [address] [facility] [place] [address] Care Team Providers Name Role Phone Lashea Alvarez APRN, CNP Unavailable [phone] Goran Lloyd Primary Care Provider Jocelyn Davidson RD Unavailable Reason for Visit Reason Comments Diabetes Thyroid Problem Encounter Details Date Type Department Care Team Description 04/16/2019 Office Visit [facility] Lashae Alvarez Uncontrolshilpa ed type 1 diabetes with renal manifestation (H) (Primary Dx); [facility] [place] KIM Monroe CNP Type 1 diabetes mellitus with complicati ons (H); [address] [facility] [id number] [place] [address] Uncontrolled type 1 diabetes mellitus wi th stage 3 chronic kidney disease (H); [place], [place] PCOS (p olycystic ovarian syndrome); [id number] Flatulence, eructation, and gas pain; [phone] Hypothyroidism due to acquired atrophy of thyroid; (Work) Abnormal weight gain Social History Tobacco Use Types Packs/Day Years Used Date Smoking Tobacco: Never Smokeless Tobacco: Never Alcohol Use Standard Drinks/Week Comments Yes 0 (1 standard drink = 0.6 oz pure alcoho l) rare Sex Assigned at Date Recorded Female 03/04/2020 12:33 PM SENIOR CYTOGENETIC TECHNOLOGIST documented as of this encounter Last Filed Vital Signs Vital Sign Reading Time Taken Comments Blood Pressure 120/68 04/16/2019 1:18 PM SENIOR CYTOGENETIC TECHNOLOGIST Pulse 76 04/16/2019 11:28 AM SENIOR CYTOGENETIC TECHNOLOGIST Temperature 36.8 ??C (98.2 ??F) 04/16/2019 11:28 AM SENIOR CYTOGENETIC TECHNOLOGIST Respiratory Rate - - Oxygen Saturation 94% 04/16/2019 11:28 AM SENIOR CYTOGENETIC TECHNOLOGIST Inhaled Oxygen Concentration - - Weight 113.4 kg (250 lb) 04/16/2019 11:28 AM SENIOR CYTOGENETIC TECHNOLOGIST Height - - Body Mass Index 34.38 [...] done if necessary. We appreciate your understanding. 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 Intimate partner violence: Fear of current or ex partner: Not on file Emotionally abused: Not on file Physically abused: Not on file Forced sexual activity: Not on file Other Topics Concern ??? Parent/sibling w/ CABG, NE or angioplasty before 65F 55M? Not Asked [...] More than 50% of the time spent with??Ms.??[facility]??on counseling / coordinating her??care??and discussing the above plan of care. The patient indicates understanding of the above issues and agrees withthe plan set forth. ??Total face to face??time was 25??minutes. Follow-up: 3 months Lashae Alvarez NP Endocrinology [facility] CC: OR CYTOGENETIC TECHNOLOGIST documented in this encounter Miscellaneous Notes Result Encounter Note - Lashae Alvarez APRN CNP - 04/16/2019 11:30 AM SENIOR CYTOGENETIC TECHNOLOGIST Marnie, Your thyroid labs are in normal [...] you have questions. Lashae Alvarez NP Endocrinology OR CYTOGENETIC TECHNOLOGIST Addendum Note - Lashae Alvarez APRN CNP - 04/16/2019 11:30 AM SENIOR CYTOGENETIC TECHNOLOGIST Addended by: LASHAE ALVAREZ on: 04/18/2019 06:22 AM Modules accepted: Orders OR CYTOGENETIC TECHNOLOGIST documented in this encounter Plan of Treatment Not on filedocumented as of this encounter Procedures Procedure Name Priority Date/Time Associated Diagnosis Comme nts BASIC METABOLIC PANEL Routine 04/16/2019 11:27 Type 1 diabetes Results for this AM SENIOR CYTOGENETIC TECHNOLOGIST mellitus with procedure are in complications (H) the result s section. TSH WITH FREE T4 Routine 04/16/2019 11:26 Uncontrolled type 1 Results for this REFLEX AM SENIOR CYTOGENETIC TECHNOLOGIST diabetes with renal procedur e are in manifestation (H) the result s section. ALBUMIN RANDOM URINE Routine 04/16/2019 11:26 Uncontrolled typ e 1 Results for this QUANTITATIVE AM SENIOR CYTOGENETIC TECHNOLOGIST diabetes with renal procedur e are in manifestation (H) the result s section. HEMOGLOBIN A1C Routine 04/16/2019 11:26 Uncontrolled type 1 Re sults for this AM SENIOR CYTOGENETIC TECHNOLOGIST diabetes with renal procedur e are in manifestation (H) the result s section. documented in this encounter Results (ABNORMAL) Renal panel (Alb, BUN, Ca, Cl, CO2, Creat, Gluc, Phos, K, Na) (08/16/2019 5:57 PM CDT) Analysis Performed At Patho logist Time Signature Sodium 136 133 - 144 08/16/2019 [facility] mmol/L 6:32 PM [facility] Potassium 4.6 3.4 - 5.3 08/16/2019 [facility] mmol/L 6:32 PM [facility] Chloride 107 94 - 109 08/16/2019 [facility] mmol/L 6:32 PM [facility] Carbon Dioxide 24 20 - 32 08/16/2019 [facility] mmol/L 6:39 PM [facility] Anion Gap 5 3 - 14 08/16/2019 [facility] mmol/L 6:39 PM [facility] Glucose 166 (H) 70 - 99 08/16/2019 [facility] mg/dL 6:39 PM [facility] Urea Nitrogen 21 7 - 30 08/16/2019 [facility] mg/dL 6:39 PM [facility] Creatinine 1.41 (H) 0.52 - 08/16/2019 [facility] 1.04 mg/dL 6:39 PM [facility] GFR Estimate 42 (L) >60 08/16/2019 [facility] mL/min/{1. 6:39 PM [facility] 73_m2} [facility] Comment: Non GFR Calc Starting 03/14/2018, serum creatinine ba sed estimated GFR (eGFR) will be calculated using the Chronic Kidney Dise [facility] Epidemiology Collaboration (CKD-EPI) equation. GFR Estimate If 49 (L) >60 mL/min/{1.73_m2} 08/16/2019 6: 39 PM [facility] Comment: GFR Calc Starting 03/14/2018, serum creatinine ba sed estimated GFR (eGFR) will be calculated using the Chronic Kidney Dise [facility] Epidemiology Collaboration (CKD-EPI) equation. Calcium 9.0 8.5 - 10.1 mg/dL 08/16/2019 6:39 PM CDT [facility] Phosphorus 3.4 2.5 - 4.5 mg/dL 08/16/2019 6:39 PM CDT [facility] Albumin 3.9 3.4 - 5.0 g/dL 08/16/2019 6:39 PM CDT [facility] Specimen Anatomical Collection Method Collection Time Receive d Time (Source) Location / / Volume Laterality Blood specimen 08/16/2019 5:57 PM 020 5:58 (specimen) CDT PM CDT Lashae Alvarez APRN, CNP LAB - BLOOD ORDERABLES Performing Organization Address City/[facility]/ZIP [facility] Phon e Number [facility] [address] [place] [address] [facility] [address] [place], [place] [address], [facility] [phone] [address], [facility] Cortisol (08/16/2019 5:57 PM CDT) athologist Signature Cortisol Serum 14.2 4 - 22 08/16/2019 [facility] ug/dL 10:27 PM CDT [facility] Comment: 8 AM Cortisol Reference Range = 4-22 ug/ dL 4 PM Cortisol Reference Range = 3-17 ug/ dL Specimen Anatomical Collection Method Collection Time Receive d Time (Source) Location / / Volume Laterality Blood specimen 08/16/2019 5:57 PM 020 5:58 (specimen) CDT PM CDT Lashae Alvarez APRN, CNP LAB - BLOOD ORDERABLES Performing Organization Address City/State/ZIP Code Phon e Number [facility] [address] [place] [address] [facility] (ABNORMAL) Basic metabolic panel (04/16/2019 11:27 AM SENIOR CYTOGENETIC TECHNOLOGIST) [facility] Method Time Signature Sodium 137 133 - 144 04/17/2019 [facility] mmol/L 7:36 AM [facility] Potassium 4.4 3.4 - 5.3 04/17/2019 [facility] mmol/L 7:36 AM [facility] Chloride 106 94 - 109 04/17/2019 [facility] mmol/L 7:36 AM [facility] Carbon Dioxide 27 20 - 32 04/17/2019 [facility] mmol/L 7:41 AM [facility] Anion Gap 4 3 - 14 04/17/2019 [facility] mmol/L 7:41 AM [facility] Glucose 219 (H) 70 - 99 04/17/2019 [facility] mg/dL 7:41 AM [facility] Urea Nitrogen 31 (H) 7 - 30 04/17/2019 [facility] mg/dL 7:41 AM [facility] Creatinine 1.64 (H) 0.52 - 04/17/2019 [facility] 1.04 7:41 AM [facility] mg/dL [facility] GFR Estimate 35 (L) >60 04/17/2019 [facility] mL/min/{1 7:41 AM [facility] .73_m2} [facility] Comment: Non GFR Calc Starting 03/14/2018, serum creatinine ba sed estimated GFR (eGFR) will be calculated using the Chronic Kidney Dise [facility] Epidemiology Collaboration (CKD-EPI) equation. GFR Estimate If 41 (L) >60 mL/min/{1.73_m2} 04/17/2019 7:[address] [facility] Black [facility] Comment: GFR Calc Starting 03/14/2018, serum creatinine ba sed estimated GFR (eGFR) will be calculated using the Chronic Kidney Dise [facility] Epidemiology Collaboration (CKD-EPI) equation. Calcium 10.3 (H) 8.5 - 10.1 mg/dL 04/17/2019 7:41 AM [facility] Specimen Anatomical Collection Method Collection Time Receive d Time (Source) Location / / Volume Laterality Blood specimen 04/16/2019 11:27 0 1:14 (specimen) AM SENIOR CYTOGENETIC TECHNOLOGIST PM SENIOR CYTOGENETIC TECHNOLOGIST Lashae Alvarez APRN NEUROLOGY SPECIALIST LAB - BLOOD ORDERABLES Performing Organization Address City/[facility]/ZIP Code Phon e Number [facility] [address] [address] TSH with free T4 reflex (04/16/2019 11:26 AM SENIOR CYTOGENETIC TECHNOLOGIST) athologist Signature TSH 1.18 0.40 - 4.00 04/17/2019 [facility] mU/L 8:25 AM [facility] Specimen Anatomical Collection Method Collection Time Receive d Time (Source) Location / / Volume Laterality Blood specimen 04/16/2019 11:26 0 (specimen) AM SENIOR CYTOGENETIC TECHNOLOGIST 11:27 AM SENIOR CYTOGENETIC TECHNOLOGIST Lashae Alvarez APRN NEUROLOGY SPECIALIST LAB - BLOOD ORDERABLES Performing Organization Address City/[facility]/ZIP Code Phon e Number [facility] [address] [place] [address] Albumin Random Urine Quantitative with Creat Ratio (04/16/2019 11:26 AM SENIOR CYTOGENETIC TECHNOLOGIST) athologist Signature Creatinine 121 mg/dL 04/17/2019 [facility] Urine 7:03 AM [facility] Albumin Urine 10 mg/L 04/17/2019 [facility] mg/L 7:14 AM [facility] Albumin Urine 7.86 0 - 25 04/17/2019 [facility] mg/g Cr mg/g Cr 7:14 AM [facility] Specimen Anatomical Collection Method Collection Time Receive d Time (Source) Location / / Volume Laterality Urine specimen 04/16/2019 11:26 0 (specimen) AM SENIOR CYTOGENETIC TECHNOLOGIST 11:27 AM SENIOR CYTOGENETIC TECHNOLOGIST Lashae Alvarez APRN NEUROLOGY SPECIALIST LAB - URINE ORDERABLES Performing Organization Address City/[facility]/ZIP Code Phon e Number [facility] [address] [place] [address] (ABNORMAL) Hemoglobin A1c (04/16/2019 11:26 AM SENIOR CYTOGENETIC TECHNOLOGIST) athologist Signature Hemoglobin A1C 7.4 (H) 0 - 5.6 % 04/16/2019 [facility] 11:42 AM SENIOR CYTOGENETIC TECHNOLOGIST [facility] Comment: Normal <5.7% Prediabetes 5.7-6.4% ??Diab etes 6.5% or higher - adopted from ADA consensus guidelines. Specimen Anatomical Collection Method Collection Time Receive d Time (Source) Location / / Volume Laterality Blood specimen 04/16/2019 11:26 0 (specimen) AM SENIOR CYTOGENETIC TECHNOLOGIST 11:27 AM SENIOR CYTOGENETIC TECHNOLOGIST Lashae Alvarez CEMENT SPRAYER HELPER NEUROLOGY SPECIALIST LAB - BLOOD ORDERABLES Performing Organization Address City/State/ZIP Code Phon e Number [facility] [address] [place] [address] documented in this encounter Visit Diagnoses Diagnosis [...] gain documented in this encounter Care Teams Sifter And Miller Relationship Specialty Start Date End Date Goran Lloyd PCP - General Family Practice 12/29/17 05/21/[address] [address] Lashae Alvarez, Nurse Practitioner Clinical Nurse 03/22/17 10/21/20 CEMENT SPRAYER HELPER NEUROLOGY SPECIALIST Specialist [address] [place] [address] Purchase Price Analyst Dietitian, Registered 05/25/18 [facility] [place] [address] documented as of this encounter
--- OUTSIDE RECORDS SUMMARY | 2022-02-09 13:19 | XMS_ITS | Encounter Summary ---
:1965 Author Organization [place] Address [address] [facility] [place] [address] Care Team Providers Name Role Phone Annette Alvarez APRN REDUCING SALON ATTENDANT Unavailable [phone] Goran Lloyd Primary Care Provider Jocelyn Davidson RD Unavailable Reason for Visit Reason Onset Date Comments Erroneous encounter-disregard 07/28/2018 Encounter Details Date Type Department Care Team Description 07/28/2018 Telephone [facility] Jocelyn Davidson RD Erroneous Clinic [facility] encounter-disregard [address] [place] [address] [address] [place] [address] Social History Tobacco Use Types Packs/Day Years Used Date Smoking Tobacco: Never Smokeless Tobacco: Never Alcohol Use Standard Drinks/Week Comments Yes 0 (1 standard drink = 0.6 oz pure alcoho l) rare Sex Assigned at Date Recorded Female 03/04/2020 12:33 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 documented as of this encounter Plan of Treatment Not on filedocumented as of this encounter Visit Diagnoses Diagnosis Type 1 diabetes mellitus with complicati ons (H) Uncontrolled type 1 diabetes mellitus wi th stage 3 chronic kidney disease Type I (juvenile type) diabetes mellitus with renal manifestations, uncontrolled PCOS (polycystic ovarian syndrome) Polycystic ovaries documented in this encounter Care Teams Vp Integration Relationship Specialty Start Date End Date Goran Lloyd PCP - General Family Practice 12/29/17 05/21/[address] [address] Annette Alvarez, Nurse Practitioner Clinical Nurse 03/22/17 10/21/20 REAL ESTATE REPRESENTATIVE REDUCING SALON ATTENDANT Specialist [address] [place], [place] [id number] Jocelyn Davidson RD Underground Supervisor Dietitian, Registered 05/25/18 [facility] [place] [address] documented as of this encounter
--- OUTSIDE RECORDS SUMMARY | 2022-02-09 13:20 | XMS_ITS | Encounter Summary ---
:1965 Author Organization [place] Address [address] [place] [address]. [place] [address] Care Team Providers Name Role Phone Annette Alvarez APRN FRUCTOSE LOADER Unavailable [phone] Goran Lloyd Primary Care Provider Reason for Visit Reason Comments Medication Refill NOVOLOG FLEXPEN 100 UNIT/ML soln Encounter Details Date Type Department Care Team Description 05/10/2018 Refill [facility] Annette Alvarez, Medication Refill [place] RESEARCH SOIL SCIENTIST FRUCTOSE LOADER (NOVOLOG FLEXPEN 100 [address] [facility] [id number] [place] [address] AV UNIT/ML soln) [place] [address] [phone] (Wo rk) Social History Tobacco Use Types Packs/Day Years Used Date Smoking Tobacco: Never Smokeless Tobacco: Never Alcohol Use Standard Drinks/Week Comments Yes 0 (1 standard drink = 0.6 oz pure alcoho l) rare Sex Assigned at Date Recorded Female 03/04/2020 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 Need to add max total daily dose. .kf R MACHINE Telephone Encounter - Annette Alvarez APRN CNP - 05/12/2018 1:46 PM TAPER MACHINE Please call and have her schedule a follow up visit. Annette Alvarez NP Endocrinology R MACHINE Telephone Encounter - Maye Souza RN - 05/12/2018 9:37 AM CST Images from the original note were not included. Failing below. No upcoming appt. No showed 04/19/18 appt, cancelled 03/30/18 appt. Frequently no shows or cancels. No show rate is 56%. Sent to provider. Please advise and route back to [facility]. Maye Souza RN Short Acting Insulin Protocol Failed05/11 5:14 PM LDL on file in past 12 months HgbA1C in past 3 or 6 months R MACHINE Telephone Encounter - GambleLeslie - 05/11/2018 5:13 [...] & Orders section of the refill encounter. R MACHINE documented in this encounter Plan of Treatment Not on filedocumented as of this encounter Visit Diagnoses Diagnosis Type 1 diabetes mellitus with complicati ons (H) Uncontrolled type 1 diabetes mellitus wi th stage 3 chronic kidney disease Type I (juvenile type) diabetes mellitus with renal manifestations, uncontrolled PCOS (polycystic ovarian syndrome) Polycystic ovaries documented in this encounter Care Teams Collateral Specialist Relationship Specialty Start Date End Date Goran Lloyd PCP - General Family Practice 12/29/17 05/21/20 [facility] [address] [place] [address] Annette Alvarez, Nurse Practitioner Clinical Nurse Specialist 10/21/20 RESEARCH SOIL SCIENTIST FRUCTOSE LOADER [address] [place] [address] documented as of this encounter
--- OUTSIDE RECORDS SUMMARY | 2022-02-09 13:20 | XMS_ITS | Encounter Summary ---
:1965 Author Organization [place] Address [address] [place] [address]. 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
--- OUTSIDE RECORDS SUMMARY | 2022-02-09 13:20 | XMS_ITS | Encounter Summary ---
:1965 Author Organization [place] Address [address] [place] [address]. [place] [address] Care Team Providers Name Role Phone Annette Alvarezmamadou ALVAREZ ADJUNCT MATHEMATICS INSTRUCTOR Unavailable Goran Lloyd Primary Care Provider Reason for Visit Reason Onset Date Comments Nurse Advice Line 01/31/2018 labs Encounter Details Date Type Department Care Team Description 01/31/2018 Telephone [facility] Annette Alvarez Nurse Advi ce Line Clinic [place] KIM Monroe ADJUNCT MATHEMATICS INSTRUCTOR (labs) [address] [place] [address] [phone] Social History Tobacco Use Types Packs/Day Years Used Date Smoking Tobacco: Never Smokeless Tobacco: Never Alcohol Use Standard Drinks/Week Comments Yes 0 (1 standard drink = 0.6 oz pure alcoho l) rare Sex Assigned at Date Recorded Female 03/04/2020 12:33 PM RECONCILIATION MANAGER documented as of this encounter Miscellaneous Notes Telephone Encounter - Quita Castillo RN - 01/31/2018 5:30 PM RECONCILIATION MANAGER Clinic Action Needed: No FNA Triage Call Presenting Problem: Marnie returned phone call from VASQUEZ Orozco. Provided note to Marnie per [facility]. Marnie verbalized understanding and had no additional questions at this time. Routed to: head librarian Quita Castillo RN/FNA NCILIATION MANAGER Telephone Encounter - Pam Boudreaux RN - 01/31/2018 8:49 AM CST Notes Recorded by Annette Alvarez, KIM RODRIGUEZ on 01/30/2018 at 6:07 PM Please call [...] questions. Annette Alvarez, JIMMY Endocrinology LM to Pam Boudreaux RN, BS Clinical Nurse Triage. NCILIATION MANAGER documented in this encounter Plan of Treatment Not on filedocumented as of this encounter Visit Diagnoses Not on filedocumented in this encounter Care Teams Mold Carrier Relationship Specialty Start Date End Date Goran Lloyd PCP - General Family Practice 12/29/17 05/21/20 [facility] [address] [place] [address] Annette Alvarez, Nurse Practitioner Clinical Nurse Specialist 10/21/20 KIM RODRIGUEZ [address] [place] [address] documented as of this encounter
--- OUTSIDE RECORDS SUMMARY | 2022-02-09 13:20 | XMS_ITS | Encounter Summary ---
:1965 Author Organization [place] Address [address] [facility] [place] [address] Care Team Providers Name Role Phone Annette Alvarez APRN ADMITTING OFFICER Unavailable Goran Lloyd Primary Care Provider Deidre Kirkland RD Unavailable Reason for Visit Reason Comments Diabetes Education Encounter Details Date Type Department Care Team Description 07/19/2018 [facility] Deidre Kirkland, Diabet es Education Health/[place] Visit [address] [address] [place] [address] Social History Tobacco Use Types Packs/Day Years Used Date Smoking Tobacco: Never Smokeless Tobacco: Never Alcohol Use Standard Drinks/Week Comments Yes 0 (1 standard drink = 0.6 oz pure alcoho l) rare Sex Assigned at Date Recorded Female 03/04/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 Please allow 3 business days for your refills to be completed. Instructions for emailing the Diabetes Educators If you need to communicate a non-urgent message to a Animal Care Taker via email, please send to . Please [...] Insulin Pump Start SUBJECTIVE/OBJECTIVE Cultural Influences/Ethnic Background: Icelandic Pt here with , and Tandem pump Rep. Insulin Pump Information Insulin Pump Type: Tandem t:slim Pump Serial Number: [id number] Infusion Set: Tandem Tandem Infusion Set: Auto Soft 90 Insulin Pump Start Insulin Pump Type: Tandem t:slim Pump Serial Number: [id number] Tandem Infusion Set: Auto Soft 90, 6 [...] on: 07/28/[address], CDE Diabetes Health Program Director Time Spent: 60 Visit Type: Individual Any [...] thyroid documented in this encounter Care Teams Pest Locator Relationship Specialty Start Date End Date Goran Lloyd PCP - General Family Practice 12/29/17 05/21/[address] [address] Annette Alvarez, Nurse Practitioner Clinical Nurse 03/22/17 10/21/20 PRINT LINE SUPERVISOR ADMITTING OFFICER Specialist [address] [place], [place] [id number] Deidre Kirkland RD Animal Care Taker Dietitian, Registered 05/25/18 JET SERRANO [facility] [place] [address] documented as of this encounter
--- OUTSIDE RECORDS SUMMARY | 2022-02-09 13:20 | XMS_ITS | Encounter Summary ---
:1965 Author Organization [place] Address [address] [facility] [place] [address] Care Team Providers Name Role Phone Annette Alvarezmamadou ALVAREZ CORE SHAPER TOP Unavailable [phone] Goran Lloyd Primary Care Provider Jocelyn Davidson RD Unavailable Reason for Visit Reason Onset Date Comments Forms 06/27/2018 [facility] t-slim reques t Encounter Details Date Type Department Care Team Description 06/27/2018 Telephone [facility] Annette Alvarez Forms ([facility] t-slim [facility] [place] KIM Monroe CORE SHAPER TOP request) [address] [address] [phone] Social History Tobacco Use Types Packs/Day Years Used Date Smoking Tobacco: Never Smokeless Tobacco: Never Alcohol Use Standard Drinks/Week Comments Yes 0 (1 standard drink = 0.6 oz pure alcoho l) rare Sex Assigned at Date Recorded Female 03/04/2020 12:33 PM DATA MANAGEMENT MANAGER documented as of this encounter Miscellaneous Notes Telephone Encounter - Mimi Cyr CMA - 06/29/2018 11:08 AM CDT Statement of Medical Necessity, last clinic note dated 01/26/18 and the last two Hgb A1c labs faxed to [facility] at fax# [phone]. Patient notified via MyChart. Mimi Cyr CMA on 06/29/2018 at 11:10AM Telephone Encounter - Annette Alvarez APRN CNP - 06/28/2018 1:34 PM CDT Form completed and signed. Annette Alvarez NP Endocrinology Telephone Encounter - Mimi Cyr CMA - 06/27/2018 10:04 AM CDT Received Statement of Medical Necessity and Prescription Order form from [facility] for a T-slim insulinpump. Dx: E10.65 [facility] Diabetes Care Team ph# [phone] opt.2 . Fax completed form and recent diabetic chart notes that state patient is actively using or has been recommended the use of an insulin pump and completed a diabetes education program (REQUIRED) to #[phone]. Form on Annette Alvarez's desk. Mimi Cyr M.A. documented in this encounter Plan of Treatment Not on filedocumented as of this encounter Visit Diagnoses Not on filedocumented in this encounter Care Teams Job Compositor Relationship Specialty Start Date End Date Goran Lloyd PCP - General Family Practice 12/29/17 05/21/20 [facility] [address] [place] [address] Annette Alvarez, Nurse Practitioner Clinical Nurse 03/22/17 10/21/20 BARKEEPER CORE SHAPER TOP Specialist [address] [place] [address] Tassel Clipper Dietitian, Registered 05/25/18 [facility] [address] [place] [address] SHARAN CARSON [address] documented as of this encounter
--- OUTSIDE RECORDS SUMMARY | 2022-02-09 13:20 | XMS_ITS | Encounter Summary ---
:1965 Author Organization [place] Address [address] [place] [address]. [place] [address] Care Team Providers Name Role Phone Antonio Annette Monroe APRN AGRICULTURAL PRODUCTION ENGINEER Unavailable [phone] Goran Lloyd Primary Care Provider Reason for Visit Reason Onset Date Comments Refill Request 02/08/2018 metFORMIN (GLUCOPHAG E-XR) 500 MG 24 hr tablet (Discontinued) Encounter Details Date Type Department Care Team Description 02/08/2018 Refill [facility] Annette Alvarez, Refill Request Luana WATER QUALITY SPECIALIST AGRICULTURAL PRODUCTION ENGINEER (metFORMIN [address] [facility] [place] [id number] [place] [address] (GLUCOPHAGE-XR) 500 MG [place], [place] 24 hr t ablet [phone] (Discontinued)) [phone] (Wo rk) Social History Tobacco Use Types Packs/Day Years Used Date Smoking Tobacco: Never Smokeless Tobacco: Never Alcohol Use Standard Drinks/Week Comments Yes 0 (1 standard drink = 0.6 oz pure alcoho l) rare Sex Assigned at Date Recorded Female 03/04/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 Refill request for Metformin. This was dc'd 01/31/18 due to her creatinine. See below. Note to pharmacy. Maye Souza RN Biguanide Agents Zxxqmk20/14 11:23 AM Patient has documented LDL within the past 12 mos. Patient's CR is NOT>1.4 OR Patient's EGFR is NOT<45 within past 12 mos. Quita Castillo RN ?? 01/31/18 5:30 PM Note Clinic Action Needed: No FNA Triage Call Presenting Problem: Marnie returned phone call from VASQUEZ Orozco. Provided note to Marnie per [facility]. Marnie verbalized understanding and had no additional questions at this time. ?? Routed to: VASQUEZ Minaya ?? Quita Castillo RN/FNA ? 01/31/18 5:29 PM Marnie Duvall contacted Quita Castillo RN ? 01/31/18 8:50 AM Pam Boudreaux, VASQUEZ routed this conversation to Cr Triage Pam Boudreaux RN ?? 01/31/18 8:49 AM Note Notes Recorded by Annette Alvarez APRN AGRICULTURAL PRODUCTION ENGINEER on 01/30/2018 at 6:07 PM Please call [...] Boudreaux RN, BS Clinical Nurse Triage. ?? OFFICER Telephone Encounter - Leslie Gamble - 02/08/2018 11:22 AM CST Discontinued Per Pharmacy patient has prescription from another pharmacy that are non transferable to [facility] becausethey have or have run out. metFORMIN (GLUCOPHAGE-XR) 500 MG 24 hr tablet (Discontinued) Last Written Prescription Date: 02/04/17-02/04/17 Last Fill Quantity: 90 tablet, # refills: 1 Last Office Visit: 01/26/18 Antonio Future Office visit: Next 5 appointments (look out 90 days) Mar 30, 2018 1:00 PM DECK OFFICER Return Visit with Annette Alvarez APRN CNP [facility] [address] [facility] [address] Routing refill request to provider for review/approval because: Drug not active on patient's medication list OFFICER documented in this encounter Plan of Treatment Not on filedocumented as of this encounter Visit Diagnoses Diagnosis Type 1 diabetes mellitus with complicati ons (H) documented in this encounter Care Teams Administration Physician Relationship Specialty Start Date End Date Goran Lloyd PCP - General Family Practice 12/29/17 05/21/20 [facility] [address] [place] [address] Annette Alvarez, Nurse Practitioner Clinical Nurse Specialist 10/21/20 KIM RODRIGUEZ [address] [place] [address] documented as of this encounter
--- OUTSIDE RECORDS SUMMARY | 2022-02-09 13:20 | XMS_ITS | Encounter Summary ---
:1965 Author Organization [place] Address [address] [place] [address]. [place] [address] Care Team Providers Name Role Phone Antonio Annette Mabel CHURCH HISTORY TEACHER CHIEF OF STAFF DOCTOR Unavailable [phone] Goran Lloyd Primary Care Provider Reason for Visit Reason Comments Medication Refill Encounter Details Date Type Department Care Team Description 01/12/2018 Refill [facility] Annette Alvarez, Medication Refill [place] CHURCH HISTORY TEACHER CHIEF OF STAFF DOCTOR [phone] [place] [address] (Wo rk) Social History Tobacco Use Types Packs/Day Years Used Date Smoking Tobacco: Never Smokeless Tobacco: Never Alcohol Use Standard Drinks/Week Comments Yes 0 (1 standard drink = 0.6 oz pure alcoho l) rare Sex Assigned at Date Recorded Female 03/04/2020 12:33 PM PRODUCTION QUALITY ANALYST documented as of this encounter Miscellaneous [...] (H) documented in this encounter Care Teams Collar Cutter Relationship Specialty Start Date End Date Goran Lloyd PCP - General Family Practice 12/29/17 05/21/[address] [address] Annette Alvarez, Nurse Practitioner Clinical Nurse Specialist 10/21/20 CHURCH HISTORY TEACHER CHIEF OF STAFF DOCTOR [address] [place] [address] documented as of this encounter
--- OUTSIDE RECORDS SUMMARY | 2022-02-09 13:20 | XMS_ITS | Encounter Summary ---
:1965 Author Organization [place] Address [address] [facility] [place] [address] Care Team Providers Name Role Phone Annette Alvarez LEGAL EXECUTIVE RAMP AGENT Unavailable [phone] Goran Lloyd Primary Care Provider Jocelyn Davidson RD Unavailable Tamar Murphy LEGAL EXECUTIVE RAMP AGENT Unavailable Nikita Gamble Primary Care Provider Encounter Details Date Type Department Care Team Description 07/07/2018 Records - [facility] CONVERSION Provider, Paul massey Social History Tobacco Use Types Packs/Day Years Used Date Smoking Tobacco: Never Smokeless Tobacco: Never Alcohol Use Standard Drinks/Week Comments Yes 0 (1 standard drink = 0.6 oz pure alcoho l) rare Sex Assigned at Date Recorded Female 03/04/2020 12:33 PM GRAIN 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 documented as of this encounter Plan of Treatment Not on filedocumented as of this encounter Visit Diagnoses Not on filedocumented in this encounter Additional Health Concerns Infection Onset Date Last Indicated Resolved Time Rule Out COVID-19 02/26/2020 02/26/2020 02/27/2020 4:3 2 PM GRAIN MANAGER documented as of this encounter Care Teams Supervisor Stripping Relationship Specialty Start Date End Date PremaGoran PCP - General Family Practice 12/29/17 05/21/20 [facility] [address] [place] [address] Nikita Gamble PCP - General Family Medicine 05/26/20 [facility] [address] [place] [address] Annette Alvarez, Nurse Practitioner Clinical Nurse 03/22/17 10/21/20 LEGAL EXECUTIVE RAMP AGENT Specialist [address] [place], [place] [id number] Jocelyn Davidson [address] Community Health Agent Dietitian, Registered 05/25/18 [facility] [address] [place] [address] [place] [address] Tamar Murphy APRN Assigned PCP 02/08/20 1 RAMP AGENT [address] [place] [address] documented as of this encounter
--- OUTSIDE RECORDS SUMMARY | 2022-02-09 13:20 | XMS_ITS | Encounter Summary ---
:1965 Author Organization [place] Address [address] [facility] [place] [address] Care Team Providers Name Role Phone Lashae Alvarez KIM RODRIGUEZ Unavailable [phone] Goran Lloyd Primary Care Provider Reason for Visit Reason Comments Diabetes discuss Hypoglycemia event 2 017 and DMV letter Encounter Details Date Type Department Care Team Description 01/26/2018 Office Visit [facility] Lashae Alvarez Type 1 rohan radha mellitus with complications (H) (Primary Dx); Clinic [place] KIM Monroe CNP Acquired hypothyroidism; [address] [place] [id number] [place] [address] 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 [address] [phone] Social History Tobacco Use Types Packs/Day Years Used Date Smoking Tobacco: Never Smokeless Tobacco: Never Alcohol Use Standard Drinks/Week Comments Yes 0 (1 standard drink = 0.6 oz pure alcoho l) rare Sex Assigned at Date Recorded Female 03/04/2020 12:33 PM CONTRACT PROCESSOR documented as of this encounter Last Filed [...] have any questions. 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 Prevention: Flu Shot- Pneumovax- recommended Opthalmology-yes [...] in March 2018. Lashae Alvarez NP Endocrinology [facility] CC: documented in this encounter Miscellaneous Notes Addendum Note - Lashae Alvarez APRN CNP - 01/30/2018 6:08 PM CONTRACT PROCESSOR Addended by: LASHAE ALVAREZ on: 01/30/2018 06:08 PM Modules accepted: Orders RACT PROCESSOR documented in this encounter Plan of Treatment [...] Results T4 FREE (01/26/2018 12:33 PM CDT) P athologist Signature T4 Free 1.12 0.76 - 1.46 01/26/2018 [facility] ng/dL 5:16 PM CDT [facility] Specimen Anatomical Collection Method Collection Time Receive d Time (Source) Location / / Volume Laterality Blood specimen 01/26/2018 12:33 8 (specimen) PM CDT 12:34 PM CDT Lashae Alvarez APRN, CNP LAB - BLOOD ORDERABLES Performing Organization Address City/[facility]/ZIP Code Phon e Number [facility] [address] [place] [phone] (ABNORMAL) TSH (01/26/2018 12:33 PM CDT) P athologist Signature TSH 0.09 (L) 0.40 - 01/26/2018 [facility] 4.00 mU/L 5:16 PM CDT [facility] Specimen Anatomical Collection Method Collection Time Receive d Time (Source) Location / / Volume Laterality Blood specimen 01/26/2018 12:33 8 (specimen) PM CDT 12:34 PM CDT Lashae Alvarez APRN, CNP LAB - BLOOD ORDERABLES Performing Organization Address City/[facility]/ZIP Code Phon e Number [facility] [address] [place] [phone] (ABNORMAL) Basic metabolic panel (01/26/2018 12:33 PM CDT) Analysis Performed At Patho logist Time Signature Sodium 141 133 - 144 01/26/2018 [facility] mmol/L 5:08 PM CDT [facility] Potassium 4.5 3.4 - 5.3 01/26/2018 [facility] mmol/L 5:08 PM CDT [facility] Chloride 107 94 - 109 01/26/2018 [facility] mmol/L 5:[address] [facility] Carbon Dioxide 26 20 - 32 01/26/2018 [facility] mmol/L 5:[address] [facility] Anion Gap 8 3 - 14 01/26/2018 [facility] mmol/L 5:[address] [facility] Glucose 140 (H) 70 - 99 01/26/2018 [facility] mg/dL 5:[address] [facility] Comment: Non Fasting Urea Nitrogen 19 7 - 30 mg/dL 01/26/2018 5:08 PM [facility] Creatinine 1.47 (H) 0.52 - 1.04 01/26/2018 5:08 PM [facility] mg/dL [facility] GFR Estimate 37 (L) >60 mL/min/1.7m2 01/26/2018 5:08 PM F [facility] Comment: Non GFR Calc GFR Estimate If 45 (L) >60 mL/min/1.7m2 01/26/2018 5:08 P M [facility] Black [facility] Comment: GFR Calc Calcium 9.5 8.5 - 10.1 mg/dL 01/26/2018 5:08 PM T [facility] Specimen Anatomical Collection Method Collection Time Receive d Time (Source) Location / / Volume Laterality Blood specimen 01/26/2018 12:33 8 (specimen) PM CDT 12:34 PM CDT Lashae Alvarez APRN VOCATIONAL AIDE LAB - BLOOD ORDERABLES Performing Organization Address City/State/ZIP Code Phon e Number [facility] [address] [place] [address] documented in this encounter Visit Diagnoses Diagnosis Type 1 diabetes mellitus with complicati ons (H) - Primary Acquired hypothyroidism Unspecified hypothyroidism 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
--- OUTSIDE RECORDS SUMMARY | 2022-02-09 13:20 | XMS_ITS | Encounter Summary ---
:1965 Author Organization [place] Address [address] [place] [address]. [place] [address] Care Team Providers Name Role Phone Annette Alvarez KIM RODRIGUEZ Unavailable [phone] Goran Lloyd Primary Care Provider Reason for Visit Reason Onset Date Comments Patient Request 03/27/2018 Suspended License Encounter Details Date Type Department Care Team Description 03/27/2018 [facility] Re [facility] KIM Monroe LOCATION DIRECTOR (Suspended License) [address] [place] [address] [phone] Social History Tobacco Use Types Packs/Day Years Used Date Smoking Tobacco: Never Smokeless Tobacco: Never Alcohol Use Standard Drinks/Week Comments Yes 0 (1 standard drink = 0.6 oz pure alcoho l) rare Sex Assigned at Date Recorded Female 03/04/2020 12:33 PM PST MANAGER documented as of this encounter Miscellaneous Notes Telephone Encounter - Mimi Cyr CMA - 03/29/2018 1:51 PM CST Completed letter and copy of the diabetes clamp truck driver form that was signed and faxed on 01/26/18 mailed to the patient. Included a copy of the letter for the patient's own files. Left a voicemail stating that the requested letter was mailed to her home address. Mimi Cyr CMA on 03/29/2018 at 1:53 PM MANAGER Telephone Encounter - Annette Alvarez APRN CNP - 03/29/2018 1:38 PM PST MANAGER Letter completed. Annette Alvarez NP Endocrinology MANAGER Telephone Encounter - Mimi Cyr CMA - [...] to drive and was faxed to the [place] [employer]: Inclusion Teacher and Vehicle Services. In addition to having the form faxed, patientstates she keeps a copy with her in the car. Has a future appointment scheduled for her routine diabetic follow-up on 04/19/18. Patient would like this letter mailed to her home. She will be bringing the letter with her to court. Please advise. Ok to leave a detailed message on her voicemail at [phone]. Mimi Cyr CMA on 03/29/2018 at 1:22 PM MANAGER Telephone Encounter - Ramila Mejia - 03/27/2018 [...] Alvarez or her nurse-please call her at [phone]. MANAGER documented in this encounter Plan of Treatment Not on filedocumented as of this encounter Visit Diagnoses Not on filedocumented in this encounter Care Teams Certified Hyperbaric Technologist Relationship Specialty Start Date End Date Goran Lloyd PCP - General Family Practice 12/29/17 05/21/20 [facility] [address] [place] [address] Annette Alvarez, Nurse Practitioner Clinical Nurse Specialist 10/21/20 COOK HELPER PRESERVES LOCATION DIRECTOR [address] [place] [address] documented as of this encounter
--- OUTSIDE RECORDS SUMMARY | 2022-02-09 13:20 | XMS_ITS | Encounter Summary ---
:1965 Author Organization [place] Address [address] [place] [address]. [place] [address] Care Team Providers Name Role Phone Annette Alvarez BOX COVERING MACHINE OPERATOR AUTOMOTIVE PARTS SALESPERSON Unavailable [phone] Goran Lloyd Primary Care Provider Jocelyn Davidson RD Unavailable Encounter Details Date Type Department Care Team Description 06/28/2018 Medical Correspondence [facility] Scan, STATEMENT OF Health Info Mgmt Non-Provider MEDICAL NEC [facility] Sr[facility]cs TANDEM [address] [place] [address] Social History Tobacco Use Types Packs/Day Years Used Date Smoking Tobacco: Never Smokeless Tobacco: Never Alcohol Use Standard Drinks/Week Comments Yes 0 (1 standard drink = 0.6 oz pure alcoho l) rare Sex Assigned at Date Recorded Female 03/04/2020 12:33 PM ETL SOFTWARE ENGINEER documented as of this encounter Plan of Treatment Not on filedocumented as of this encounter Visit Diagnoses Not on filedocumented in this encounter Care Teams Warp Knit Operator Relationship Specialty Start Date End Date Goran Lloyd PCP - General Family Practice 12/29/17 05/21/20 [facility] [address] [place] [address] Annette Alvarez, Nurse Practitioner Clinical Nurse 03/22/17 10/21/20 BOX COVERING MACHINE OPERATOR AUTOMOTIVE PARTS SALESPERSON Specialist [address] [place] [address] Supervisor Park Workers Dietitian, Registered 05/25/18 [facility] [place] [address] documented as of this encounter
--- OUTSIDE RECORDS SUMMARY | 2022-02-09 13:20 | XMS_ITS | Encounter Summary ---
:1965 Author Organization [place] Address [facility] [place] [address] Care Team Providers Name Role Phone Annette Alvarezmamadou ALVAREZ ELOCUTION TEACHER Unavailable Goran Lloyd Primary Care Provider Jocelyn Davidson RD Unavailable Encounter Details Date Type Department Care Team Description 06/12/2018 Orders Only [facility] Annette Alvarez Type 1 rohan betes mellitus with complications (H) (Primary Dx); Clinic [place] KIM Monroe ELOCUTION TEACHER Abdominal bloating [address] [place] [address] [phone] Social History Tobacco Use Types Packs/Day Years Used Date Smoking Tobacco: Never Smokeless Tobacco: Never Alcohol Use Standard Drinks/Week Comments Yes 0 (1 standard drink = 0.6 oz pure alcoho l) rare Sex Assigned at Date Recorded Female 03/04/2020 12:33 PM TILLER 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 documented as of this encounter Plan of Treatment Not on filedocumented as of this encounter Visit Diagnoses Diagnosis Type 1 diabetes mellitus with complicati ons (H) - Primary Abdominal bloating Flatulence, eructation, and gas pain documented in this encounter Care Teams Children'S Service Worker Relationship Specialty Start Date End Date Goran Lloyd PCP - General Family Practice 12/29/17 05/21/20 [address] [place] [address] Annette Alvarez, Nurse Practitioner Clinical Nurse 03/22/17 10/21/20 SEPARATIONS SCIENTIST ELOCUTION TEACHER Specialist [address] [place], [place] [id number] Jocelyn Davidson RD Print And Pattern Designer Dietitian, Registered 05/25/18 [facility] [place]AR[place] CAR[place] [address] documented as of this encounter
--- OUTSIDE RECORDS SUMMARY | 2022-02-09 13:20 | XMS_ITS | Encounter Summary ---
:1965 Author Organization [place] Address [address] [place] [address]. [place] [address] Care Team Providers Name Role Phone Annette Alvarez APRN BUSINESS ATTORNEY Unavailable Goran Lloyd Primary Care Provider Jocelyn Davidson RD Unavailable Encounter Details Date Type Department Care Team Description 05/25/2018 Travel Social History Tobacco Use Types Packs/Day Years Used Date Smoking Tobacco: Never Smokeless Tobacco: Never Alcohol Use Standard Drinks/Week Comments Yes 0 (1 standard drink = 0.6 oz pure alcoho l) rare Sex Assigned at Date Recorded Female 03/04/2020 12:33 PM METAPHYSICIAN documented as of this encounter Plan of Treatment Not on filedocumented as of this encounter Visit Diagnoses Not on filedocumented in this encounter Care Teams Flask Handler Relationship Specialty Start Date End Date Goran Lloyd PCP - General Family Practice 12/29/17 05/21/20 [facility] [address] [place] [address] Annette Alvarez, Nurse Practitioner Clinical Nurse 03/22/17 10/21/20 TERRITORY SUPERVISOR BUSINESS ATTORNEY Specialist [address] [place], [place] [id number] Jocelyn Davidson RD Digital Marketing Specialist Dietitian, Registered 05/25/[address] [place] [address] documented as of this encounter
--- OUTSIDE RECORDS SUMMARY | 2022-02-09 13:20 | XMS_ITS | Encounter Summary ---
:1965 Author Organization [place] Address [address] [facility] [place] [address] Care Team Providers Name Role Phone Annette Alvarezmamadou ALVAREZ FORGING ENGINEER Unavailable [phone] Goran Lloyd Primary Care Provider Reason for Visit Reason Onset Date Comments Forms 01/26/2018 DMV form insulin dep endent Encounter Details Date Type Department Care Team Description 01/26/2018 Telephone [facility] Annette Alvarez Forms (DMV form insulin Clinic [place] KIM Monroe FORGING ENGINEER dependent) [address] [place] [address] [phone] Social History Tobacco Use Types Packs/Day Years Used Date Smoking Tobacco: Never Smokeless Tobacco: Never Alcohol Use Standard Drinks/Week Comments Yes 0 (1 standard drink = 0.6 oz pure alcoho l) rare Sex Assigned at Date Recorded Female 03/04/2020 12:33 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 (ph#[phone]) Original given to patient. Copy sent to abstracting to be entered into the EMR. Mimi Cyr M.A. documented in this encounter Plan of Treatment Not on filedocumented as of this encounter Visit Diagnoses Not on filedocumented in this encounter Care Teams Manager Of Regulatory Affairs Relationship Specialty Start Date End Date Goran Lloyd PCP - General Family Practice 12/29/17 05/21/[address] [address] Annette Alvarez, Nurse Practitioner Clinical Nurse Specialist 10/21/20 POWER PLANT INSTALLER FORGING ENGINEER [address] [place] [address] documented as of this encounter
--- OUTSIDE RECORDS SUMMARY | 2022-02-09 13:20 | XMS_ITS | Encounter Summary ---
:1965 Author Organization [place] Address [address] [facility] [place] [address] Care Team Providers Name Role Phone Annette Alvarez APRN REMOTE COMPUTER TERMINAL OPERATOR Unavailable Goran Lloyd Primary Care Provider Jocelyn Davidson RD Unavailable Reason for Visit Reason Comments Diabetes Education Encounter Details Date Type Department Care Team Description 05/25/2018 [facility] Jocelyn Davidson, Diabet es Education Health/Nurse [place] Visit [address] [place] [address] [place] [id number] [place], [place] [id number] Social History Tobacco Use Types Packs/Day Years Used Date Smoking Tobacco: Never Smokeless Tobacco: Never Alcohol Use Standard Drinks/Week Comments Yes 0 (1 standard drink = 0.6 oz pure alcoho l) rare Sex Assigned at Date Recorded Female 03/04/2020 12:33 PM COUNCILPERSON documented as of this encounter Progress Notes Jocelyn Davidson, RD - 05/25/2018 11:30 AM CST Images from the original note were not included. Diabetes Self-Management Education & Support SUBJECTIVE/OBJECTIVE Diabetes education in the past 24mo: Yes Diabetes type: Type 1 Disease course: Getting harder to manage Diabetes management related comments/concerns: getting my A1C to a normal level Cultural Influences/Ethnic Background: [place]inese Patient seen today for Insulin Pump Pre-Start: [...] prior to insulin pump start. Healthy Eating Cultural/cheondoism diet restrictions?: No Meal planning: Carbohydrate counting [...] IQ pump. Jocelyn Davidson RD, CDE Diabetes Technology Recruiter Time Spent: 60 minutes Encounter Type: Individual Any diabetes medication dose changes were made via the CDE Protocol and Collaborative Practice Agreement with the patient's endocrinology provider. A copy of this encounter was shared with the provider. CILPERSON documented in this encounter Plan of Treatment Not on filedocumented as of this encounter Visit Diagnoses Diagnosis Type 1 diabetes mellitus with complicati ons (H) - Primary documented in this encounter Care Teams Outboard Motor Tester Relationship Specialty Start Date End Date Goran Lloyd PCP - General Family Practice 12/29/17 05/21/[address] [address] Annette Alvarez, Nurse Practitioner Clinical Nurse 03/22/17 10/21/20 WIND FARM OPERATIONS MANAGER REMOTE COMPUTER TERMINAL OPERATOR Specialist [address] [place], [place] [id number] Jocelyn Davidson RD Mapping Supervisor Dietitian, Registered 05/25/18 [facility] [place] [address] documented as of this encounter
--- OUTSIDE RECORDS SUMMARY | 2022-02-09 13:20 | XMS_ITS | Encounter Summary ---
:1965 Author Organization [place] Address [address] [place] [address] Care Team Providers Name Role Phone Annette Alvarez APRN, CNP Unavailable Goran Lloyd Primary Care Provider Jocelyn Davidson RD Unavailable Reason for Visit Reason Onset Date Comments Diabetes Education 07/10/2018 Pump orders Encounter Details Date Type Department Care Team Description 07/10/2018 Telephone [facility] Jocelyn Davidson RD Diabetes Education Clinic [facility] (Pump orders) [address] [place] [address] [address] [place] [address] Social History Tobacco Use Types Packs/Day Years Used Date Smoking Tobacco: Never Smokeless Tobacco: Never Alcohol Use Standard Drinks/Week Comments Yes 0 (1 standard drink = 0.6 oz pure alcoho l) rare Sex Assigned at Date Recorded Female 03/04/2020 12:33 PM PULL OUT OPERATOR documented as of this encounter Miscellaneous [...] alternative plan. Jocelyn Davidson RD, CDE Diabetes Clinical Documentation Spec documented in this encounter Plan of Treatment Not on filedocumented as of this encounter Visit Diagnoses Not on filedocumented in this encounter Care Teams Senior Property Manager Relationship Specialty Start Date End Date Goran Lloyd PCP - General Family Practice 12/29/17 05/21/[address] [address] Annette Alvarez, Nurse Practitioner Clinical Nurse 03/22/17 10/21/20 SEWING MACHINIST ASSISTANT COOK Specialist [address] [place] [address] Hand Ornament Maker Dietitian, Registered 05/25/18 [facility] [address] [id number] documented as of this encounter
--- OUTSIDE RECORDS SUMMARY | 2022-02-09 13:20 | XMS_ITS | Encounter Summary ---
:1965 Author Organization [place] Address [address] [facility] [address] Care Team Providers Name Role Phone Annette Alvarez APRN BUTTON INSPECTOR Unavailable Goran Lloyd Primary Care Provider Jocelyn Davidson RD Unavailable Reason for Visit Reason Onset Date Comments Forms 05/26/2018 Tandem pump Encounter Details Date Type Department Care Team Description 05/26/2018 Telephone [facility] Jocelyn Davidson, RENATA Forms (Tandem pump) [address] [phone] Social History Tobacco Use Types Packs/Day Years Used Date Smoking Tobacco: Never Smokeless Tobacco: Never Alcohol Use Standard Drinks/Week Comments Yes 0 (1 standard drink = 0.6 oz pure alcoho l) rare Sex Assigned at Date Recorded Female 03/04/2020 12:33 PM ELECTRIFICATION ADVISER documented as of this encounter Miscellaneous Notes Telephone Encounter - Jocelyn Davidson, RENATA - 05/26/2018 3:21 PM CST Images from the original note were not included. Patient filled out Tandem AOB after CDE visit 05/25/18. Forms faxed on 05/26/18- follow up e-mail also sent to Barber Corona and Michelle Mary at [facility]. Original forms with Mimi Cyr MA/ Annette Alvarez NP. EnStorage message sent to Marnie as fyi. Jocelyn Davidson RD, CDE Diabetes [employer] Consultant TRIFICATION ADVISER documented in this encounter Plan of Treatment Not on filedocumented as of this encounter Visit Diagnoses Not on filedocumented in this encounter Care Teams Tip Inserter Relationship Specialty Start Date End Date Goran Lloyd PCP - General Family Practice 12/29/17 05/21/20 [facility] [address] [place] [address] Annette Alvarez, Nurse Practitioner Clinical Nurse 03/22/17 10/21/20 GAME BIRD FARMER BUTTON INSPECTOR Specialist [address] [place] [address] Electronic Calibration Technician Dietitian, Registered 05/25/18 [facility] Kaleigh SERRANO [facility] [place] [address] documented as of this encounter
--- OUTSIDE RECORDS SUMMARY | 2022-02-09 13:20 | XMS_ITS | Encounter Summary ---
:1965 Author Organization [place] Address [address] [place] [address]. [place] [address] Care Team Providers Name Role Phone Annette Alvarezmamadou ALVAREZ BACK WEDGER Unavailable [phone] Goran Lloyd Primary Care Provider Reason for Visit Reason Onset Date Comments Medication Refill 03/25/2018 [facility] 1 MG kit Encounter Details Date Type Department Care Team Description 03/24/2018 Refill [facility] AlvarezAnnette, Medication Refill [place] BREAKER OPERATOR BACK WEDGER ([facility] 1 MG [address] [facility] [address] [facility] kit) [place] [address] [phone] (Wo rk) Social History Tobacco Use Types Packs/Day Years Used Date Smoking Tobacco: Never Smokeless Tobacco: Never Alcohol Use Standard Drinks/Week Comments Yes 0 (1 standard drink = 0.6 oz pure alcoho l) rare Sex Assigned at Date Recorded Female 03/04/2020 12:33 PM PINION AND WHEEL TRUER documented as of this encounter Miscellaneous Notes Telephone Encounter - Pam Boudreaux RN - 03/27/2018 3:55 PM CST Prescription approved per [facility] Refill Protocol Pam Boudreaux RN BS ON AND WHEEL TRUER Telephone Encounter - Lena Mcmahon - 03/25/2018 [...] 90 days) Mar 30, 2018 1:00 PM PINION AND WHEEL TRUER Return Visit with Annette Alvarez APRN CNP [facility] [address] [facility] [address] ON AND WHEEL TRUER documented in this encounter Plan of Treatment [...] thyroid documented in this encounter Care Teams Manager Support Relationship Specialty Start Date End Date Goran Lloyd PCP - General Family Practice 12/29/17 05/21/20 [facility] [address] [place] [address] Annette Alvarez, Nurse Practitioner Clinical Nurse Specialist 10/21/20 KIM RODRIGUEZ [address] [place] [address] documented as of this encounter
--- OUTSIDE RECORDS SUMMARY | 2022-02-09 13:20 | XMS_ITS | Encounter Summary ---
:1965 Author Organization [place] Address [address] [place] [address]. [place] [address] Care Team Providers Name Role Phone Annette Alvarez TABULAR TYPIST WETLANDS TECHNICIAN Unavailable Goran Lloyd Primary Care Provider Encounter Details Date Type Department Care Team Description 03/09/2018 Travel Social History Tobacco Use Types Packs/Day Years Used Date Smoking Tobacco: Never Smokeless Tobacco: Never Alcohol Use Standard Drinks/Week Comments Yes 0 (1 standard drink = 0.6 oz pure alcoho l) rare Sex Assigned at Date Recorded Female 03/04/2020 12:33 PM GRIDCAP MACHINE OPERATOR documented as of this encounter Plan of Treatment Not on filedocumented as of this encounter Visit Diagnoses Not on filedocumented in this encounter Care Teams Chief Librarian Work With Blind Relationship Specialty Start Date End Date Goran Lloyd PCP - General Family Practice 12/29/17 05/21/[address] [facility] [address] [place] [address] Annette Alvarez, Nurse Practitioner Clinical Nurse Specialist 10/21/20 TABULAR TYPIST WETLANDS TECHNICIAN [address] [place] [address] documented as of this encounter
--- OUTSIDE RECORDS SUMMARY | 2022-02-09 13:21 | XMS_ITS | Encounter Summary ---
:1965 Author Organization [place] Address [address] [place] [address]. [place] [address] Care Team Providers Name Role Phone No Ref-Primary, Physician Primary Care Provider Annette Alvarez APRN AGENCY RECRUITER Unavailable [phone] Reason for Visit Reason Comments Diabetes Encounter Details Date Type Department Care Team Description 06/17/2017 Office Visit [facility] Annette Alvarez Type 1 rohan radha mellitus with complications (H) (Primary Dx); Clinic [place] KIM Monroe AGENCY RECRUITER Abnormal weight gain; [phone] [place] [address] Morbid obesity (H); [place], [place] Diabeti c polyneuropathy associated with type 1 diabetes mellitus (H); [id number] 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 [phone] Social History Tobacco Use Types Packs/Day Years Used Date Smoking Tobacco: Never Smokeless Tobacco: Never Alcohol Use Standard Drinks/Week Comments Yes 0 (1 standard drink = 0.6 oz pure alcoho l) rare Sex Assigned at Date Recorded Female 03/04/2020 12:33 PM UROLOGIC SURGEON documented as of this encounter Last Filed [...] provider about better treatment for depression. 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 ago - was having severe pain prior to surgery, thinks due topolycystic kidney disease Lives in [place] Very distressed about weight gain and inability [...] Follow-up: 1 month Annette Alvarez NP Endocrinology [facility] CC: documented in this encounter Plan of Treatment Not on filedocumented as of this encounter Visit Diagnoses Diagnosis Type 1 diabetes mellitus with complicati ons (H) - Primary Abnormal weight gain Morbid obesity (H) Morbid obesity Diabetic polyneuropathy associated with type 1 diabetes mellitus (H) 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 documented in this encounter Care Teams Extermination Inspector Relationship Specialty Start Date End Date No Ref-Primary, PCP - General 12/25/14 12/28/17 Physician Annette Alvarez, Nurse Practitioner Clinical Nurse Specialist 10/21/20 KIM RODRIGUEZ [address] [place] [address] documented as of this encounter
--- OUTSIDE RECORDS SUMMARY | 2022-02-09 13:21 | XMS_ITS | Encounter Summary ---
:1965 Author Organization [place] Address [address] [place] [address]. [place] [address] Care Team Providers Name Role Phone No Ref-Primary, Physician Primary Care Provider Annette Alvarez LEAD JAVA DEVELOPER ARCHITECT TRUSS MAKER Unavailable Reason for Visit Reason Onset Date Comments Refill Request 08/31/2017 naltrexone-bupropion (CONTRAVE) 8-90 MG per 12 hr tablet Encounter Details Date Type Department Care Team Description 08/31/2017 Refill [facility] Annette Alvarez, Refill Request [place] LEAD JAVA DEVELOPER ARCHITECT TRUSS MAKER (naltrexone-bupropion [address] [address] [facility] (CONTRAVE) 8-90 MG per [place], [place] 12 hr t ablet) [id number] [id number] (Wo rk) Social History Tobacco Use Types Packs/Day Years Used Date Smoking Tobacco: Never Smokeless Tobacco: Never Alcohol Use Standard Drinks/Week Comments Yes 0 (1 standard drink = 0.6 oz pure alcoho l) rare Sex Assigned at Date Recorded Female 03/04/2020 12:33 PM ONLINE ADVERTISING MANAGER documented as of this encounter Miscellaneous [...] at this time. Jasmyn Lee, RN -- [facility] Telephone Encounter - Lisandro Lena - 09/05/2017 [...] obesity documented in this encounter Care Teams Supervisor Labor Gang Relationship Specialty Start Date End Date No Ref-Primary, PCP - General 12/25/14 12/28/17 Physician Annette Alvarez, Nurse Practitioner Clinical Nurse Specialist 10/21/20 KIM RODRIGUEZ [address] [place] [address] documented as of this encounter
--- OUTSIDE RECORDS SUMMARY | 2022-02-09 13:21 | XMS_ITS | Encounter Summary ---
:1965 Author Organization [place] Address [address] [place] [address] Care Team Providers Name Role Phone No Ref-Primary, Physician Primary Care Provider Annette Alvarez APRN GOLD LETTERER Unavailable Reason for Visit Reason Onset Date Comments Prior Auth - Medication 06/27/2017 Contrave APPROVE D Encounter Details Date Type Department Care Team Description 06/27/2017 Telephone [facility] Annette Alvarez Prior Auth - Medication Clinic [place] KIM Monroe CNP (Contrave APPROVED) [address] [place] [address] [phone] Social History Tobacco Use Types Packs/Day Years Used Date Smoking Tobacco: Never Smokeless Tobacco: Never Alcohol Use Standard Drinks/Week Comments Yes 0 (1 standard drink = 0.6 oz pure alcoho l) rare Sex Assigned at Date Recorded Female 03/04/2020 12:33 PM AUTO RADIO MECHANIC documented as of this encounter Miscellaneous Notes Telephone Encounter - Amandeep Proi - 06/29/2017 12:17 PM CDT Images from the original note were not included. Prior Authorization Approval Authorization Effective Date: 06/29/2017 Authorization Expiration Date: 10/29/2017 Medication: Contrave APPROVED Approved Dose/Quantity: 120/30 days Reference #: [id number] Insurance Company: [employer] - Expected CoPay: $25.00 Which Pharmacy is filling the prescription (Not needed for infusion/clinic administered): [facility] [address] [place] [address] [address] Pharmacy Notified: Yes Patient Notified: Yes Telephone Encounter - Lynsey Pro - 06/29/2017 9:00 AM CDT Images from the original note were not included. PA Initiation Medication: Contrave Insurance Company: [employer] - Pharmacy Filling the Rx: [facility] [id number] [facility] [id number] Filling Pharmacy Filling Pharmacy Fax: Start Date: 06/29/2017 Central Prior Authorization Team Telephone Encounter - Karley Kessler CMA - 06/28/2017 1:48 PM CDT PA request routed to [place]. Waiting to hear back. Karley Kessler CMA Telephone Encounter - Karley Kessler CMA - 06/28/2017 1:31 PM CDT Prior Authorization Retail Medication Request Medication/Dose: Contrave ICD code (if different than what is on RX): Previously Tried and Failed: See below Rationale: Insurance Name: [employer] Pharmacy Information (if different than what is [...] on filedocumented in this encounter Care Teams Returned Goods Repairer Relationship Specialty Start Date End Date No Ref-Primary, PCP - General 12/25/14 12/28/17 Physician Annette Alvarez, Nurse Practitioner Clinical Nurse Specialist 10/21/20 KIM RODRIGUEZ [address] [place] [address] documented as of this encounter
--- OUTSIDE RECORDS SUMMARY | 2022-02-09 13:21 | XMS_ITS | Encounter Summary ---
:1965 Author Organization [place] Address [facility] [place] [address] Care Team Providers Name Role Phone No Ref-Primary, Physician Primary Care Provider [phone] Annette Alvarez APRN NCA CERTIFIED CONCIERGE Unavailable [phone] Reason for Visit Reason Onset Date Comments Appointment 10/19/2017 Encounter Details Date Type Department Care Team Description 10/19/2017 Telephone [facility] Milady Moss, Appointment Shahana MERCADO [address] [facility] [address] [facility] [address] [place] [address] [place] [address] (Wo rk) Social History Tobacco Use Types Packs/Day Years Used Date Smoking Tobacco: Never Smokeless Tobacco: Never Alcohol Use Standard Drinks/Week Comments Yes 0 (1 standard drink = 0.6 oz pure alcoho l) rare Sex Assigned at Date Recorded Female 03/04/2020 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 INSPECTING documented as of this encounter Miscellaneous Notes Telephone Encounter - Aura Jamil - 10/25/2017 10:15 AM CDT Appointment is correct Telephone Encounter - Bear - 10/19/2017 7:27 PM CDT Reason for Call: Other appointment Detailed comments: Patient states that Annette Alvarez is retiring and looking to establish with a new medical records technician. She missed her appointment today and wanted to reschedule at the [place] location.I have scheduled patient as return with [...] be reached at: Home number on file [phone] (home) Best Time: Anytime. Can we leave a detailed message on this number? YES Call taken on 10/19/2017 at 7:27 PM by Bear documented in this encounter Plan of Treatment Not on filedocumented as of this encounter Visit Diagnoses Not on filedocumented in this encounter Care Teams Foxing Closer Relationship Specialty Start Date End Date No Ref-Primary, PCP - General 12/25/14 12/28/17 Physician Annette Alvarezne, Nurse Practitioner Clinical Nurse Specialist 10/21/20 SALES REPRESENTATIVE SALES MANAGER NCA CERTIFIED CONCIERGE [address] [place] [address] documented as of this encounter
--- OUTSIDE RECORDS SUMMARY | 2022-02-09 13:21 | XMS_ITS | Encounter Summary ---
:1965 Author Organization [place] Address [address] [place] [address]. [place] [address] Care Team Providers Name Role Phone No Ref-Primary, Physician Primary Care Provider [phone] Annette Alvarez MOMD TEACHER SEAM RUBBING MACHINE OPERATOR Unavailable [phone] Reason for Visit Reason Onset Date Comments Refill Request 11/09/2017 levothyroxine (SYNTH ROID/LEVOTHROID) 175 MCG tablet Refill Request 11/09/2017 pregabalin (LYRICA) 75 MG capsule Encounter Details Date Type Department Care Team Description 11/09/2017 Refill [facility] Annette Alvarez, Refill Request [place] MOMD TEACHER SEAM RUBBING MACHINE OPERATOR (levothyroxine [address] [facility] [address] [facility] (SYNTHROID/LEVOTHROID) [place], [place] 175 MCG tablet); Refill [id number] Request (pregabalin [phone] (Wo rk) (LYRICA) 75 MG capsule) Social History Tobacco Use Types Packs/Day Years Used Date Smoking Tobacco: Never Smokeless Tobacco: Never Alcohol Use Standard Drinks/Week Comments Yes 0 (1 standard drink = 0.6 oz pure alcoho l) rare Sex Assigned at Date Recorded 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 documented as of this encounter Miscellaneous [...] CDT Return Visit with Yina Moss MD [facility] ([facility] [address] [phone] 84 tablet 1 Sig: Take one tablet [...] CDT Return Visit with Yina Moss MD [facility] ([facility]) [address] [place] [address] [facility] [phone] 180 capsule 1 Sig: Take 1 capsule (75 mg) by mouth 2 times daily There is no refill protocol information for this order documented in this encounter Plan of Treatment Not on filedocumented as of this encounter Visit Diagnoses Diagnosis 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
--- OUTSIDE RECORDS SUMMARY | 2022-02-09 13:21 | XMS_ITS | Encounter Summary ---
:1965 Author Organization [place] Address [address] [facility] [place] [address] Care Team Providers Name Role Phone No Ref-Primary, Physician Primary Care Provider [phone] Annette Alvarez APRN SITE PROJECT MANAGER Unavailable [phone] Reason for Visit Reason Onset Date Comments Diabetes No Show 12/22/2017 Encounter Details Date Type Department Care Team Description 12/22/2017 Office Visit [facility] GERALDO Moss (P rimary Dx) [facility] [place] MD Yina [address] [facility] [address] [address] [place] [address] [phone] Social History Tobacco Use Types Packs/Day Years Used Date Smoking Tobacco: Never Smokeless Tobacco: Never Alcohol Use Standard Drinks/Week Comments Yes 0 (1 standard drink = 0.6 oz pure alcoho l) rare Sex Assigned at Date Recorded 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 documented in this encounter Plan of Treatment Not on filedocumented as of this encounter Visit Diagnoses Diagnosis NO SHOW - Primary documented in this encounter Care Teams Crimper Operator Relationship Specialty Start Date End Date No Ref-Primary, PCP - General 12/25/14 12/28/17 Physician Annette Alvarez, Nurse Practitioner Clinical Nurse Specialist 10/21/20 SLIP COVER CUTTER SITE PROJECT MANAGER [address] [place] [address] documented as of this encounter
--- OUTSIDE RECORDS SUMMARY | 2022-02-09 13:21 | XMS_ITS | Encounter Summary ---
:1965 Author Organization [place] Address [address] [facility] [place] [address] Care Team Providers Name Role Phone No Ref-Primary, Physician Primary Care Provider [phone] Annette Alvarez APRN LEAF STAMPER Unavailable [phone] Goran Lloyd Primary Care Provider Jocelyn Davidson RD Unavailable Tamar Murphy ARC FURNACE OPERATOR LEAF STAMPER Unavailable Nikita Gamble Primary Care Provider Reason for Visit Reason Comments Forms return to work Encounter Details Date Type Department Care Team Description 11/02/2017 [facility] Vu Isaacs, Fo dayan (return to [facility] Kim MERCADO work) [address] [place] [address] [address] [place] [address] [place], [place] [phone] [facility] Social History Tobacco Use Types Packs/Day Years Used Date Smoking Tobacco: Never Smokeless Tobacco: Never Alcohol Use Standard Drinks/Week Comments Yes 0 (1 standard drink = 0.6 oz pure alcoho l) rare Sex Assigned at Date Recorded Female 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 documented as of this encounter Plan of Treatment Not on filedocumented as of this encounter Visit Diagnoses Not on filedocumented in this encounter Additional Health Concerns Infection Onset Date Last Indicated Resolved Time Rule Out COVID-19 02/26/2020 02/26/2020 02/27/2020 4:3 2 PM CAD DESIGN ENGINEER documented as of this encounter Care Teams Cooker Casing Relationship Specialty Start Date End Date No Ref-Primary, PCP - General 12/25/14 12/28/17 Physician Goran Lloyd PCP - General Family Practice 12/29/17 05/21/20 [facility] [address] [place] [address] Nikita Gamble PCP - General [facility] 05/26/20 [facility] [address] [place] [address] Annette Alvarez, Nurse Practitioner Clinical Nurse 03/22/17 10/21/20 ARC FURNACE OPERATOR LEAF STAMPER Specialist [address] [place], [place] [id number] Jocelyn [address] Promotional Advertising Assistant Dietitian, Registered 05/25/18 JET [place] [facility] [place] [address] Tamar Murphy APRN Assigned PCP 02/08/20 1 LEAF STAMPER [address] [place] [address] documented as of this encounter
--- OUTSIDE RECORDS SUMMARY | 2022-02-09 13:21 | XMS_ITS | Encounter Summary ---
:1965 Author Organization [facility] Address [address] [place] [address]. [place] [address] Care Team Providers Name Role Phone Annette Alvarez KIM RODRIGUEZ Unavailable [phone] Goran Lloyd Primary Care Provider Reason for Visit Reason Onset Date Comments Patient Request for Note/Letter 01/04/2018 patient requesting letter to DM Encounter Details Date Type Department Care Team Description 01/04/2018 Telephone [facility] Annette Alvarez Patient Re quest for [facility] [place] KIM Monroe CNP Note/Letter (patient [id number] [facility] [id number] [place] [address] requesting letter to [facility]) [id number] [phone] Social History Tobacco Use Types Packs/Day Years Used Date Smoking Tobacco: Never Smokeless Tobacco: Never Alcohol Use Standard Drinks/Week Comments Yes 0 (1 standard drink = 0.6 oz pure alcoho l) rare Sex Assigned at Date Recorded Female 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 Need to inform of all [...] while driving. 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 Her blood sugar dropped while driving home. She was driving [employer] and 911 was called by several people. She eventually ended up driving thewrong way on a one way. Police were able to get her to ladle puller and determined her BG was in the 20's and were able to treat her. Patient saw her primary outside of [facility] so there is no documentation in her [facility] chart. The letter written by her primary has not been accepted by the [place] [employer] Public [employer]. Patient was pulled over yesterday and was told by the officer that her license is under suspension. Patient has until 01/13/18 to submit a letter from her doctor stating that her diabetes is under goodcontrol, that she is safe to drive and is currently under the care of a physician/provider for her diabetes. The letter needs to be on [facility] Letterhead and needs to have the providers [...] is able to drive. Please call patient [phone]. Andreina Falcon Investment Fund Manager documented in this encounter Plan of Treatment Not on filedocumented as of this encounter Visit Diagnoses Not on filedocumented in this encounter Care Teams Web Development Director Relationship Specialty Start Date End Date Ailabouni, Goran PCP - General Family Practice 12/29/17 05/21/[address] [address] Annette Alvarez, Nurse Practitioner Clinical Nurse Specialist 10/21/20 SENIOR INFORMATION SECURITY ENGINEER LEARNING AND DEVELOPMENT MANAGER [address] [place] [address] documented as of this encounter
--- OUTSIDE RECORDS SUMMARY | 2022-02-09 13:21 | XMS_ITS | Encounter Summary ---
:1965 Author Organization [place] Address Formerly [facility] [place] [address] Care Team Providers Name Role Phone No Ref-Primary, Physician Primary Care Provider [phone] Reason for Visit Reason Comments Diabetes Encounter Details Date Type Department Care Team Description 02/04/2017 Office Visit [facility] Lashae Alvarez Type 1 rohan betes mellitus with complications (H) (Primary Dx); [facility] [place] KIM Monroe NATIONAL RECRUITER Uncontrolled type 1 diabetes mellitus wi th stage 3 chronic kidney disease (H); [id number] [place] [address] Flatulence, eructation, and gas pain; [place], [place] PCOS (p olycystic ovarian syndrome) [address] [phone] Social History Tobacco Use Types Packs/Day Years Used Date Smoking Tobacco: Never Smokeless Tobacco: Never Alcohol Use Standard Drinks/Week Comments Yes 0 (1 standard drink = 0.6 oz pure alcoho l) rare Sex Assigned at Date Recorded Female 03/04/2020 12:33 PM GRINDING WHEEL FACER documented as of this encounter Last Filed Vital Signs Vital Sign Reading Time Taken Comments Blood Pressure 164/64 02/04/2017 9:19 AM GRINDING WHEEL FACER Pulse 76 02/04/2017 9:19 AM GRINDING WHEEL FACER Temperature 36.8 ??C (98.2 ??F) 02/04/2017 9:19 AM GRINDING WHEEL FACER Respiratory Rate 16 02/04/2017 9:19 AM GRINDING WHEEL FACER Oxygen Saturation - - Inhaled Oxygen Concentration - - Weight 112.7 kg (248 lb 6.4 oz) 02/04/2017 9:19 AM GRINDING WHEEL FACER Height - - Body Mass Index 34.16 12/25/2014 9:45 PM CDT documented in this encounter Patient Instructions Patient InstructionsLashae Alvarez APRN CNP - 02/04/2017 9:00 AM GRINDING WHEEL FACER We'll recheck creatinine today. If creatinine is [...] months after that. Lashae Alvarez NP Endocrinology DING WHEEL FACER documented in this encounter Progress Notes Lashae [...] results when available. 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 Medication Reconciliation: complete DING WHEEL FACER documented in this encounter Miscellaneous Notes Addendum Note - Lashae Alvarez APRN NATIONAL RECRUITER - 02/13/2017 9:57 PM GRINDING WHEEL FACER Addended by: LASHAE ALVAREZ on: 02/13/2017 09:57 PM Modules accepted: Orders DING WHEEL FACER documented in this encounter Plan of Treatment Not on filedocumented as of this encounter Procedures Procedure Name Priority Date/Time Associated Diagnosis Comme nts BASIC METABOLIC Routine 02/04/2017 10:30 Type 1 diabetes Resul ts for this PANEL AM GRINDING WHEEL FACER mellitus with procedure are in complications (H ) the results Uncontrolled type 1 section. diabetes mellitus with stage 3 chronic kidney disease (H) Flatulence, eructation, and gas pain documented in this encounter Results (ABNORMAL) Basic metabolic panel FUTURE 1yr (02/25/2017 12:05 PM GRINDING WHEEL FACER) [facility] Method Time Signature Sodium 138 133 - 144 02/26/2017 [facility] mmol/L 11:18 AM [facility] Potassium 4.9 3.4 - 5.3 02/26/2017 [facility] mmol/L 11:18 AM [facility] Chloride 106 94 - 109 02/26/2017 [facility] mmol/L 11:18 AM [facility] Carbon Dioxide 20 20 - 32 02/26/2017 [facility] mmol/L 11:18 AM [facility] Anion Gap 12 3 - 14 02/26/2017 [facility] mmol/L 11:18 AM [facility] Glucose 157 (H) 70 - 99 02/26/2017 [facility] mg/dL 11:18 AM [facility] Urea Nitrogen 25 7 - 30 02/26/2017 [facility] mg/dL 11:18 AM [facility] Creatinine 1.60 (H) 0.52 - 02/26/2017 [facility] 1.04 11:18 AM [facility] mg/dL [facility] GFR Estimate 34 (L) >60 02/26/2017 [facility] mL/min/1. 11:18 AM [facility] 7m2 [facility] Comment: Non GFR Calc GFR Estimate If 41 (L) >60 mL/min/1.7m2 02/26/2017 11:18 AM [facility] Black [facility] Comment: GFR Calc Calcium 8.8 8.5 - 10.1 mg/dL 02/26/2017 11:18 AM GRINDING WHEEL FACER [facility] Specimen Anatomical Collection Method Collection Time Receive d Time (Source) Location / / Volume Laterality Blood specimen 02/25/2017 12:05 7 (specimen) PM GRINDING WHEEL FACER 12:06 PM GRINDING WHEEL FACER Lashae Alvarez APRN NATIONAL RECRUITER LAB - BLOOD ORDERABLES Performing Organization Address City/[facility]/ZIP Code Phon e Number [facility] [address] [place] [address] (ABNORMAL) Hemoglobin A1c (02/25/2017 12:05 PM GRINDING WHEEL FACER) P athologist Signature Hemoglobin A1C 7.6 (H) 4.3 - 6.0 02/25/2017 [facility] % 12:21 PM GRINDING WHEEL FACER [facility] Specimen Anatomical Collection Method Collection Time Receive d Time (Source) Location / / Volume Laterality Blood specimen 02/25/2017 12:05 7 (specimen) PM GRINDING WHEEL FACER 12:06 PM GRINDING WHEEL FACER Lashae Alvarez APRN NATIONAL RECRUITER LAB - BLOOD ORDERABLES Performing Organization Address City/State/ZIP Code Phon e Number [facility] [address] [place] [address] (ABNORMAL) Basic metabolic panel (02/04/2017 10:30 AM GRINDING WHEEL FACER) Analysis Performed At Patho logist Time Signature Sodium 140 133 - 144 02/05/2017 [facility] mmol/L 1:47 PM [facility] Potassium 5.6 (H) 3.4 - 5.3 02/05/2017 [facility] mmol/L 1:47 PM [facility] Chloride 106 94 - 109 02/05/2017 [facility] mmol/L 1:47 PM [facility] Carbon Dioxide 25 20 - 32 02/05/2017 [facility] mmol/L 1:47 PM [facility] Anion Gap 9 3 - 14 02/05/2017 [facility] mmol/L 1:47 PM [facility] Glucose 134 (H) 70 - 99 02/05/2017 [facility] mg/dL 1:47 PM [facility] Comment: Non Fasting Urea Nitrogen 16 7 - 30 mg/dL 02/05/2017 1:[address] [facility] Creatinine 1.40 (H) 0.52 - 1.04 02/05/2017 1:47 PM [facility] mg/dL [facility] GFR Estimate 40 (L) >60 mL/min/1.7m2 02/05/2017 1:47 PM F [facility] Comment: Non GFR Calc GFR Estimate If 48 (L) >60 mL/min/1.7m2 02/05/2017 1:47 P M [facility] Black [facility] Comment: GFR Calc Calcium 9.3 8.5 - 10.1 mg/dL 02/05/2017 1:47 PM [facility] Specimen Anatomical Collection Method Collection Time Receive d Time (Source) Location / / Volume Laterality Blood specimen 02/04/2017 10:30 7 (specimen) AM GRINDING WHEEL FACER 10:31 AM GRINDING WHEEL FACER Lashae Alvarez LITIGATION DOCKET MANAGER NATIONAL RECRUITER LAB - BLOOD ORDERABLES Performing Organization Address City/State/ZIP Code Phon e Number [facility] [address] [place] [address] documented in this encounter Visit Diagnoses Diagnosis Type 1 diabetes mellitus with complicati ons (H) - Primary Uncontrolled type 1 diabetes mellitus wi th stage 3 chronic kidney disease Type I (juvenile type) diabetes mellitus with renal manifestations, uncontrolled Flatulence, eructation, and gas pain PCOS (polycystic ovarian syndrome) Polycystic ovaries documented in this encounter Care Teams Project Surveyor Relationship Specialty Start Date End Date No Ref-Primary, Physician PCP - General 12/25/14 12/28/17 documented as of this encounter
--- OUTSIDE RECORDS SUMMARY | 2022-02-09 13:21 | XMS_ITS | Encounter Summary ---
:1965 Author Organization [place] Address [address] [place] [address]. [place] [address] Care Team Providers Name Role Phone No Ref-Primary, Physician Primary Care Provider [phone] Reason for Referral Patient Education - Closed Specialty Diagnoses / Procedures Referred By Contact Refer red To Contact Diagnoses Uncontrolled type 1 diabetes mellitus with stage 3 chronic kidney disease Lashae Alvarez APRN [facility] [address] [phone] Referral ID Status Reason Start Date Expiration Date Visits Requ ested Visits Authorized [id number] Closed 12/10/2016 12/10/2017 1 1 Reason for Visit Reason Comments Diabetes Encounter Details Date Type Department Care Team Description 11/25/2016 Office Visit [facility] Lashae Alvarez ed type 1 diabetes mellitus with stage 3 chronic kidney disease (H) (Primary Dx); Clinic [place] KIM Monroe CNP PCOS (polycystic ovarian syndrome) [address] [place] [address] [phone] Social History Tobacco Use Types Packs/Day Years Used Date Smoking Tobacco: Never Smokeless Tobacco: Never Alcohol Use Standard Drinks/Week Comments Yes 0 (1 standard drink = 0.6 oz pure alcoho l) rare Sex Assigned at Date Recorded Female 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 Schedule an appointment with Yadira Garcia, music educator for prepump education. Follow up with [...] BG range: 40-398 Previously seeing endo at [facility] History of right nephrectomy 12 years ago - was having severe pain prior to surgery, thinks due topolycystic kidney disease Lives in [place] Complications: Diabetes Complications Description / Detail Diabetic [...] Follow-up: 1 month Lashae Alvarez NP Endocrinology [facility] CC: documented in this encounter Nursing Notes [...] Basic metabolic panel (11/25/2016 2:33 PM CDT) [facility] gist Method Time Signature Sodium 139 133 - 144 11/26/2016 [facility] mmol/L 3:30 PM CDT [facility] Potassium 4.4 3.4 - 5.3 11/26/2016 [facility] mmol/L 3:30 PM CDT [facility] Chloride 106 94 - 109 11/26/2016 [facility] mmol/L 3:30 PM CDT [facility] Carbon Dioxide 24 20 - 32 11/26/2016 [facility] mmol/L 3:30 PM CDT [facility] Anion Gap 9 3 - 14 11/26/2016 [facility] mmol/L 3:30 PM CDT [facility] Glucose 117 (H) 70 - 99 11/26/2016 [facility] mg/dL 3:30 PM CDT [facility] Urea Nitrogen 30 7 - 30 11/26/2016 [facility] mg/dL 3:30 PM CDT [facility] Creatinine 2.10 (H) 0.52 - 11/26/2016 [facility] 1.04 3:30 PM CDT CLINICS mg/dL [facility] GFR Estimate 25 (L) >60 11/26/2016 [place] mL/min/1. 3:30 PM CDT CLINICS 7m2 [facility] Comment: Non GFR Calc GFR Estimate If 30 (L) >60 mL/min/1.7m2 11/26/2016 3:30 P [facility] Black T [facility] Comment: GFR Calc Calcium 8.9 8.5 - 10.1 mg/dL 11/26/2016 3:30 PM CDT [facility] Specimen Anatomical Collection Method Collection Time Receive d Time (Source) Location / / Volume Laterality Blood specimen 11/25/2016 2:33 PM 017 3:16 (specimen) CDT PM CDT Lashae Alvarez APRN EQUITY STRUCTURER LAB - BLOOD ORDERABLES Performing Organization Address City/State/ZIP Code Phon e Number [facility] [address] [place] [address] Albumin Random Urine Quantitative with Creat Ratio (11/25/2016 2:33 PM CDT) Patholo gist Method Time Signature Creatinine 26 mg/dL 11/25/2016 [place] Urine 5:45 PM CDT [facility] Albumin Urine <5 mg/L 11/25/2016 [place] mg/L 5:49 PM CDT [facility] Albumin Urine Unable to 0 - 25 11/25/2016 [place] mg/g Cr calculate due mg/g Cr 5:49 PM CDT [facility] Specimen Anatomical Collection Method Collection Time Receive d Time (Source) Location / / Volume Laterality Urine specimen 11/25/2016 2:33 PM 017 2:34 (specimen) CDT PM CDT Lashae Alvarez APRN, CNP LAB - URINE ORDERABLES Performing Organization Address City/State/ZIP Code Phon e Number [facility] [address] [place] [address] [phone] [facility] [address] [place] [address], [facility] [phone] (ABNORMAL) Hemoglobin A1c (11/25/2016 2:33 PM CDT) P athologist Signature Hemoglobin A1C 7.8 (H) 4.3 - 6.0 11/25/2016 [place] % 2:57 PM CDT [facility] Comment: Results confirmed by repeat gail t Specimen Anatomical Collection Method Collection Time Receive d Time (Source) Location / / Volume Laterality Blood specimen 11/25/2016 2:33 PM 017 2:34 (specimen) CDT PM CDT Lashae Alvarez APRN, CNP LAB - BLOOD ORDERABLES Performing Organization Address City/[facility]/ZIP [facility] [place] [place] Phon e Number [facility] [address] [place] [address] documented in this encounter Visit Diagnoses Diagnosis Uncontrolled type 1 diabetes mellitus wi th stage 3 chronic kidney disease - Primary Type I (juvenile type) diabetes mellitus with renal manifestations, uncontrolled PCOS (polycystic ovarian syndrome) Polycystic ovaries documented in this encounter Care Teams Gel Coat Sprayer Relationship Specialty Start Date End Date No Ref-Primary, Physician PCP - General 12/25/14 12/28/17 documented as of this encounter
--- OUTSIDE RECORDS SUMMARY | 2022-02-09 13:21 | XMS_ITS | Encounter Summary ---
:1965 Author Organization [place] Address [address] [place] [address]. [place] [address] Care Team Providers Name Role Phone No Ref-Primary, Physician Primary Care Provider Reason for Visit Reason Comments Abdominal Pain fell in shower 2 nights ago, not sure if related to her abdominal pain or not. 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 Follow up with STOGY ROLLER in 2 days for reevaluation, contact info provided. Discuss repeat ultrasound to monitor cyst size with STOGY ROLLER. Return to the ED for worsening symptoms, [...] contain Tylenol?? (acetaminophen), including Vicodin??, Tylenol #3??, [place]??, Lortab??, and Percocet??. You should not take [...] She felt better after receiving dilaudid. 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 Review of Systems Constitutional: Negative for fever [...] sleep apnea. Recommended patient follow up with STOGY ROLLER in two days for reevaluation and to [...] break through pain - Follow up with STOGY ROLLER in 2 days for reevaluation Discharge Medications: [...] BK CAM MD Constance Wolff PA-C IMG US ORDERABLES Abd/pelvis CT no contrast - [...] Signature INR 1.60 (H) 0.86 - 1.14 [facility] Specimen Anatomical Collection Method Collection Time Receive d Time (Source) Location / / Volume Laterality 12/25/2014 10:48 12/25/2014 PM CDT 10:58 PM CDT Constance Wolff PA-C LAB - BLOOD ORDERABLES Performing Organization Address City/State/ZIP Code Phon e Number M [facility] [address] [place] [address] [facility] [address] [place] [address], [place] [phone] Lactic acid (12/25/2014 10:48 PM CDT) athologist Signature Lactic Acid 1.3 0.7 - 2.1 [place] mmol/L [facility] Specimen Anatomical Collection Method Collection Time Receive d Time (Source) Location / / Volume Laterality Blood specimen 12/25/2014 10:48 5 (specimen) PM CDT 10:57 PM CDT Constance Wolff PA-C LAB - BLOOD ORDERABLES Performing Organization Address City/State/ZIP Code Phon e Number M [facility] [address] [place] [address] [facility] [address] [place] [address], [place] [phone] Lipase (12/25/2014 10:48 PM CDT) P athologist Signature Lipase 165 73 - 393 [place] U/L [facility] Specimen Anatomical Collection Method Collection Time Receive d Time (Source) Location / / Volume Laterality Blood specimen 12/25/2014 10:48 5 (specimen) PM CDT 10:58 PM CDT Constance Wolff PA-C LAB - BLOOD ORDERABLES Performing Organization Address City/State/ZIP Code Phon e Number M [facility] [address] [place] [address] [phone] [facility] [address] [place] [address], [place] [phone] (ABNORMAL) Comprehensive metabolic panel (12/25/2014 10:48 PM CDT) Analysis Performed At Patho logist Time Signature Sodium 137 133 - 144 [place] mmol/L [facility] Potassium 4.3 3.4 - 5.3 [place] mmol/L [facility] Chloride 104 94 - 109 [place] mmol/L [facility] Carbon Dioxide 29 20 - 32 [place] mmol/L [facility] Anion Gap 4 3 - 14 [place] mmol/L [facility] Glucose 77 70 - 99 [place] mg/dL [facility] Urea Nitrogen 16 7 - 30 [place] mg/dL [facility] Creatinine 1.27 (H) 0.52 - [place] 1.04 mg/dL [facility] GFR Estimate 45 (L) >60 [place] mL/min/1.[address] Comment: Non GFR Calc GFR Estimate If Black 54 (L) >60 mL/min/1.7m2 F [facility] Comment: GFR Calc Calcium 8.2 (L) 8.5 - 10.1 mg/dL [facility] Bilirubin Total 0.2 0.2 - 1.3 mg/dL [facility] Albumin 3.7 3.4 - 5.0 g/dL [facility] Protein Total 7.1 6.8 - 8.8 g/dL [facility] Alkaline Phosphatase 87 40 - 150 U/L [facility] ALT 24 0 - 50 U/L [facility] AST 16 0 - 45 U/L [facility] Specimen Anatomical Collection Method Collection Time Receive d Time (Source) Location / / Volume Laterality Blood specimen 12/25/2014 10:48 5 (specimen) PM CDT 10:58 PM CDT Constance Wolff PA-C LAB - BLOOD ORDERABLES Performing Organization Address City/State/ZIP Code Phon e Number [facility] [address] [place] [address] [facility] [address] [place] [address], [place] [phone] (ABNORMAL) CBC with platelets + differential (12/25/2014 10:48 PM CDT) [facility] Method Time Signature WBC 10.7 4.0 - [place] 11.0 [facility] 10e9/[facility] RBC Count 3.98 3.8 - 5.2 [place] 10e12/L [facility] Hemoglobin 11.9 11.7 - [place] 15.7 g/dL [facility] Hematocrit 34.5 (L) 35.0 - [place] 47.0 % [facility] MCV 87 78 - 100 [place] fl [facility] MCH 29.9 26.5 - [place] 33.0 pg [facility] MCHC 34.5 31.5 - [place] 36.5 g/dL [facility] RDW 12.3 10.0 - [place] 15.0 % [facility] Platelet Count 290 150 - 450 [place] 10e9/L [facility] Diff Method Automated [facility] % Neutrophils 71.9 % [facility] % Lymphocytes 19.2 % [facility] % Monocytes 5.6 % [facility] % Eosinophils 2.7 % [facility] % Basophils 0.5 % [facility] % Immature 0.1 % [place] Granulocytes [facility] Absolute 7.7 1.6 - 8.3 [place] Neutrophil 10e9/L [facility] Absolute 2.1 0.8 - 5.3 [place] Lymphocytes 10e9/L [facility] Absolute 0.6 0.0 - 1.3 [place] Monocytes 10e9/L [facility] Absolute 0.3 0.0 - 0.7 [place] Eosinophils 10e9/L [facility] Absolute 0.1 0.0 - 0.2 [place] Basophils 10e9/L [facility] Abs Immature 0.0 0 - 0.4 [facility] 10e9/L [facility] Specimen Anatomical Collection Method Collection Time Receive d Time (Source) Location / / Volume Laterality Blood specimen 12/25/2014 10:48 5 (specimen) PM CDT 10:58 PM CDT Constance Wolff PA-C LAB - BLOOD ORDERABLES Performing Organization Address City/State/ZIP Code Phon e Number [facility] [address] [place] [address] [facility] [address] [place] [address], [place] [phone] HCG qualitative urine (12/25/2014 10:05 PM CDT) athologist Signature HCG Qual Urine Negative NEG [facility] Specimen Anatomical Collection Method Collection Time Receive d Time (Source) Location / / Volume Laterality 12/25/2014 10:05 12/25/2014 PM CDT 10:51 PM CDT Brian Neil DO LAB - URINE ORDERABLES Performing Organization Address City/State/ZIP Code Phon e Number [facility] [address] [place], [place] [address] (ABNORMAL) *UA reflex to Microscopic (12/25/2014 10:05 PM CDT) Patholo gist Method Time Signature Color Urine Yellow [facility] Appearance Urine Clear [facility] Glucose Urine 100 (A) NEG mg/dL [facility] Bilirubin Urine Negative NEG [facility] Ketones Urine Negative NEG mg/dL [facility] Specific [place] 1.010 1.003 - [place] Urine 1.035 [facility] Blood Urine Negative NEG [facility] pH Urine 6.0 5.0 - 7.0 [place] pH [facility] Protein Albumin Negative NEG mg/dL [place] Urine [facility] Urobilinogen 0.2 0.2 - 1.0 [place] Urine EU/dL [facility] Nitrite Urine Negative NEG [facility] Leukocyte Negative NEG [place] Esterase Urine [facility] Source Midstream [place] Urine [facility] Specimen Anatomical Collection Method Collection Time Receive d Time (Source) Location / / Volume Laterality 12/25/2014 10:05 12/25/2014 PM CDT 10:13 PM CDT Gem Ribeiro MD LAB - URINE ORDERABLES Performing Organization Address City/State/ZIP Code Phon e Number [facility] [address] [address] documented in this encounter Visit Diagnoses [...] 0300 (Stopped - Provider: Katt Turner , RN) Intravenous, 1,000 mL, ONCE, Tue12/25/14 at 2240, For 1 dose HYDROmorphone (DILAUDID) injection 1 mg (COMPLETED) 2358 (Given - Provider: Gale Higuera RN) 1 mg, Intravenous, ONCE, 1 dose, Tue12/25/14 at 2323 morphine (PF) injection 4 mg (COMPLETED) 2246 (Given - Provider: Gale Higuera RN) 4 mg, Intravenous, ONCE, 12/25/14 at 2240, For 1 dose ondansetron (ZOFRAN) injection 4 mg (COMPLETED) 224 (Given - Provider: Gale Higuera RN) 4 mg, Intravenous, ONCE, for 2 Minutes, Tue12/25/14 at 2240, For 1 dose oxyCODONE-acetaminophen (PERCOCET) 5-325 MG per tablet 1 tablet (COMPLETED) 0623 (Given - Provider: Katt Turner, RN) 1 tablet, Oral, ONCE, Cyndi 12/26/14 at 062 1, For 1 dose, Maximum acetaminophen dose from all sources= 75 mg/kg/day not to exceed 4 grams PRN Medication Order 12/24/2014 12/25/2014 12/26/2014 HYDROmorphone (DILAUDID) injection 1 mg (COMPLETED) 2307 (Given - Provider: Gale Higuera RN)2325 (Given - Provider: Gale Higuera, RN) 0044 (Given - Provider: Gale Higuera, VASQUEZ) 1 mg, Intravenous, EVERY 15 MIN PRN, 3 d oses, Starting Tue12/25/14 at 2304, Until Discontinued, moderate to severe pain documented in this encounter Care Teams Bobbin Cleaner Relationship Specialty Start Date End Date No Ref-Primary, Physician PCP - General 12/25/14 12/28/17 documented as of this encounter
--- OUTSIDE RECORDS SUMMARY | 2022-02-09 13:21 | XMS_ITS | Encounter Summary ---
:1965 Author Organization [place] Address [address] [facility] [place] [address] Care Team Providers Name Role Phone No Ref-Primary, Physician Primary Care Provider [phone] Annette Alvarez APRN NAMED ACCOUNT EXECUTIVE Unavailable [phone] Goran Lloyd Primary Care Provider Jocelyn Davidson RD Unavailable Tamar Murphy RIPSAWYER NAMED ACCOUNT EXECUTIVE Unavailable Nikita Gamble Primary Care Provider Reason for Visit Reason Comments Consult Infectious Disease Encounter Details Date Type Department Care Team Description 10/13/2017 [facility] (Infectious [facility] Fredy Pavon MD Disease) Patient Access [address] [phone] [place], [place] [phone] [address] Social History Tobacco Use Types Packs/Day Years Used Date Smoking Tobacco: Never Smokeless Tobacco: Never Alcohol Use Standard Drinks/Week Comments Yes 0 (1 standard drink = 0.6 oz pure alcoho l) rare Sex Assigned at Date Recorded 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 documented as of this encounter Plan of Treatment Not on filedocumented as of this encounter Visit Diagnoses Not on filedocumented in this encounter Additional Health Concerns Infection Onset Date Last Indicated Resolved Time Rule Out COVID-19 02/26/2020 02/26/2020 02/27/2020 4:3 2 PM ASSOCIATE documented as of this encounter Care Teams Program Advisor Relationship Specialty Start Date End Date No Ref-Primary, PCP - General 12/25/14 12/28/17 Physician Goran Lloyd PCP - General Family Practice 12/29/17 05/21/20 [facility] [address] [place] [address] Nikita Gamble PCP - General [facility] 05/26/20 [facility] [address] [place] [address] Annette Alvarez, Nurse Practitioner Clinical Nurse 03/22/17 10/21/20 RIPSAWYER NAMED ACCOUNT EXECUTIVE Specialist [address] [place], [place] [phone] Jocelyn Davidson [address] Configuration Management Analyst Dietitian, Registered 05/25/18 [facility] [address] [place] [address] [place] [id number] Tamar Murphy APRN Assigned PCP 02/08/20 1 NAMED ACCOUNT EXECUTIVE [address] [place] [address] documented as of this encounter
--- OUTSIDE RECORDS SUMMARY | 2022-02-09 13:21 | XMS_ITS | Encounter Summary ---
:1965 Author Organization [place] Address [address] [place] [address]. [place] [address] Care Team Providers Name Role Phone No Ref-Primary, Physician Primary Care Provider Annette Alvarez APPLICATION CHEMIST BOTTOM WHEELER Unavailable Reason for Visit Reason Onset Date Comments Medication Question 03/22/2017 Encounter Details Date Type Department Care Team Description 03/22/2017 Telephone [facility] Annette Alvarez, Medication Question [place] APPLICATION CHEMIST BOTTOM WHEELER [address] [address] [id number] (Wo rk) Social History Tobacco Use Types Packs/Day Years Used Date Smoking Tobacco: Never Smokeless Tobacco: Never Alcohol Use Standard Drinks/Week Comments Yes 0 (1 standard drink = 0.6 oz pure alcoho l) rare Sex Assigned at Date Recorded 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 I am closing this encounterto avoid confusion. Please see the other message for f/u. Karley Kessler CMA T AND VEGETABLE PACKER Telephone Encounter - JayOlga Violeta - 03/22/2017 9:42 AM CST Reason for [...] to reach patient: Home number on file [phone] (home) Best Time: anytime Can we leave a detailed message on this number? YES T AND VEGETABLE PACKER documented in this encounter Plan of Treatment Not on filedocumented as of this encounter Visit Diagnoses Not on filedocumented in this encounter Care Teams Acoustical Material Worker Relationship Specialty Start Date End Date No Ref-Primary, PCP - General 12/25/14 12/28/17 Physician Annette Alvarez, Nurse Practitioner Clinical Nurse Specialist 10/21/20 APPLICATION CHEMIST BOTTOM WHEELER [address] [place] [address] documented as of this encounter
--- OUTSIDE RECORDS SUMMARY | 2022-02-09 13:21 | XMS_ITS | Encounter Summary ---
:1965 Author Organization [place] Address [address] [place] [address]. 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) Annette Alvarez [facility] KIM ELECTROMECHANICAL EQUIPMENT TESTER Replaced by [facility] 95 [phone] Referral ID Status Reason Start Date Expiration Date Visits Requ ested Visits Authorized [id number] Closed 12/29/2017 12/29/2018 1 1 Reason for Visit Reason Comments Diabetes Flu Shot Encounter Details Date Type Department Care Team Description 12/29/2017 Office Visit [place] Annette Nuñez Type 1 rohan garcia mellitus with complications (H) (Primary Dx); [facility] [place] [facility] C[facility] Need for prophylactic vaccination and in oculation against influenza; [id number] Uncontrolled type 1 diabetes mellitus wi th stage 3 chronic kidney disease (H); [place], [place] PCOS (p olycystic ovarian syndrome); [phone] 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 [phone] Social History Tobacco Use Types Packs/Day Years Used Date Smoking Tobacco: Never Smokeless Tobacco: Never Alcohol Use Standard Drinks/Week Comments Yes 0 (1 standard drink = 0.6 oz pure alcoho l) rare Sex Assigned at Date Recorded 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 Prevention: Flu Shot- Pneumovax- recommended Opthalmology-yes [...] RECOMBINANT VÁSQUEZ , IM (FluBlok, egg free) [19790]- >18 YRS (FMG [id number] YRS) ??? Vaccine Administration, Initial [44909] ??? Albumin Random Urine Quantitative with Creat Ratio ??? IN CLASS SPECIAL EDUCATION TEACHER REFERRAL Radiology/Consults ordered today: All questions were answered. The patient indicates understanding of the above issues and agrees withthe plan set forth. Total face to face time greater than or equal to 25 minutes. Follow-up: 3 month Annette Alvarez NP Endocrinology [facility] CC: documented in this encounter Plan of [...] with Creat Ratio (12/29/2017 5:43 PM CDT) [facility] Method Time Signature Creatinine 56 mg/dL 12/30/2017 [place] Urine 4:37 PM CDT [facility] Albumin Urine <5 mg/L 12/30/2017 [place] mg/L 4:37 PM CDT [facility] Albumin Urine Unable to 0 - 25 12/30/2017 [place] mg/g Cr calculate due mg/g Cr 4:37 PM CDT CLINICS to low value [facility] Specimen Anatomical Collection Method Collection Time Receive d Time (Source) Location / / Volume Laterality Urine specimen 12/29/2017 5:43 PM 018 5:44 (specimen) CDT PM CDT Annette Alvarez BRAZER FURNACE ELECTROMECHANICAL EQUIPMENT TESTER LAB - URINE ORDERABLES Performing Organization Address City/State/ZIP Code Phon e Number [facility] [address] [place] [address] documented in this encounter Visit Diagnoses Diagnosis [...] thyroid documented in this encounter Care Teams Media Relations Manager Relationship Specialty Start Date End Date Goran Lloyd PCP - General Family Practice 12/29/17 05/21/20 [facility] [address] [place] [address] Annette Alvarez, Nurse Practitioner Clinical Nurse Specialist 10/21/20 BRAZER FURNACE ELECTROMECHANICAL EQUIPMENT TESTER [address] [place] [address] documented as of this encounter
--- OUTSIDE RECORDS SUMMARY | 2022-02-09 13:21 | XMS_ITS | Encounter Summary ---
:1965 Author Organization [place] Address [address] [facility] [place] [address] Care Team Providers Name Role Phone No Ref-Primary, Physician Primary Care Provider [phone] Annette Alvarez APRN PRODUCTION SPECIALIST Unavailable [phone] Reason for Visit Reason Onset Date Comments Results 03/22/2017 lab results and lega l questions Encounter Details Date Type Department Care Team Description 03/22/[address] 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 She will call back to make an appt. Karley Kessler CMA [facility] Telephone Encounter - Yina Moss MD - 03/23/2017 10:51 AM GARNISHER Can f/u in 2-4 weeks with Annette. ISHER Telephone Encounter - Karley Kessler CMA - 03/22/2017 11:38 AM GARNISHER LANDSCAPE SPECIALIST, please advise in LS's absence. Karley Kessler CMA [facility] Telephone Encounter - Jasmyn Lee RN - [...] this. I did advise her to contacta pharmacovigilance specialist about this as I do not have a legal background or the answers to her questions regarding a legal commitment. Advised her it is not a simple process, its a legal process and she does have rights as an individual. She will contact a pharmacovigilance specialist regarding her concerns. Jasmyn Lee RN -- [facility] Workforce ISHER documented in this encounter Plan of Treatment Not on filedocumented as of this encounter Visit Diagnoses Not on filedocumented in this encounter Care Teams Tower Watchman Relationship Specialty Start Date End Date No Ref-Primary, PCP - General 12/25/14 12/28/17 Physician Annette Alvarez, Nurse Practitioner Clinical Nurse Specialist 10/21/20 OFFLINE EDITOR PRODUCTION SPECIALIST [address] [place] [address] documented as of this encounter
--- OUTSIDE RECORDS SUMMARY | 2022-02-09 13:21 | XMS_ITS | Encounter Summary ---
:1965 Author Organization [place] Address [facility] 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
--- OUTSIDE RECORDS SUMMARY | 2022-02-09 13:21 | XMS_ITS | Encounter Summary ---
:1965 Author Organization [facility] Address [address] [place] [address]. [place] [address] Care Team Providers Name Role Phone No Ref-Primary, Physician Primary Care Provider [phone] Encounter Details Date Type Department Care Team Description 02/25/2017 Orders Only [facility] Typ e 1 diabetes mellitus with complications (H); [facility] Uncontrolled type 1 diabetes mellitus with stage 3 chronic kidney disease (H); [id number] [facility] Flatulence, eructation, and gas pain; [place], [place] PCOS (polyc ystic ovarian syndrome) [id number] Social History Tobacco Use Types Packs/Day Years Used Date Smoking Tobacco: Never Smokeless Tobacco: Never Alcohol Use Standard Drinks/Week Comments Yes 0 (1 standard drink = 0.6 oz pure alcoho l) rare Sex Assigned at Date Recorded Female 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 Marnie, Your kidney test is still elevated but the potassium is now normal. Your A1c is better, decreased from 7.8%. Here's a copy of the results for your records. Annette Alvarez NP Endocrinology ROL SPECIALIST documented in this encounter Plan of Treatment Not on filedocumented as of this encounter Procedures Procedure Name Priority Date/Time Associated Diagnosis Comme nts HEMOGLOBIN A1C Routine 02/25/2017 12:05 Type 1 diabetes Result s for this PM CONTROL SPECIALIST mellitus with procedure are in complications (H ) the results Uncontrolled type 1 section. diabetes mellitus with stage 3 chronic kidney disease (H) Flatulence, eructation, and gas pain BASIC METABOLIC Routine 02/25/2017 12:05 Type 1 diabetes Resul ts for this PANEL PM CONTROL SPECIALIST mellitus with procedure are in complications (H ) the results Uncontrolled type 1 section. diabetes mellitus with stage 3 chronic kidney disease (H) Flatulence, eructation, and gas pain PCOS (polycystic ovarian syndrome) documented in this encounter Results (ABNORMAL) Basic metabolic panel FUTURE 1yr (02/25/2017 12:05 PM CONTROL SPECIALIST) [facility] Method Time Signature Sodium 138 133 - 144 02/26/2017 [facility] mmol/L 11:18 AM [facility] Potassium 4.9 3.4 - 5.3 02/26/2017 [facility] mmol/L 11:18 AM [facility] Chloride 106 94 - 109 02/26/2017 [facility] mmol/L 11:18 AM [facility] Carbon Dioxide 20 20 - 32 02/26/2017 [facility] mmol/L 11:18 AM [facility] Anion Gap 12 3 - 14 02/26/2017 [facility] mmol/L 11:18 AM [facility] Glucose 157 (H) 70 - 99 02/26/2017 [facility] mg/dL 11:18 AM [facility] Urea Nitrogen 25 7 - 30 02/26/2017 [facility] mg/dL 11:18 AM [facility] Creatinine 1.60 (H) 0.52 - 02/26/2017 [facility] 1.04 11:18 AM [facility] mg/dL [facility] GFR Estimate 34 (L) >60 02/26/2017 [facility] mL/min/1. 11:18 AM [facility] 7m2 [facility] Comment: Non GFR Calc GFR Estimate If 41 (L) >60 mL/min/1.7m2 02/26/2017 11:18 AM [facility][1] Comment: GFR Calc Calcium 8.8 8.5 - 10.1 mg/dL 02/26/2017 11:18 AM CONTROL SPECIALIST [facility] Specimen Anatomical Collection Method Collection Time Receive d Time (Source) Location / / Volume Laterality Blood specimen 02/25/2017 12:05 7 (specimen) PM CONTROL SPECIALIST 12:06 PM CONTROL SPECIALIST Annette Alvarez APRN PEDIATRIC GENETIC COUNSELOR LAB - BLOOD ORDERABLES Performing Organization Address City/[facility]/ZIP Code Phon e Number [facility] [address] [place] [address] (ABNORMAL) Hemoglobin A1c (02/25/2017 12:05 PM CONTROL SPECIALIST) P athologist Signature Hemoglobin A1C 7.6 (H) 4.3 - 6.0 02/25/2017 [facility] 12:21 PM CONTROL SPECIALIST [facility] Specimen Anatomical Collection Method Collection Time Receive d Time (Source) Location / / Volume Laterality Blood specimen 02/25/2017 12:05 7 (specimen) PM CONTROL SPECIALIST 12:06 PM CONTROL SPECIALIST Annette Alvarez APRN, CNP LAB - BLOOD ORDERABLES Performing Organization Address City/[facility]/ZIP Code Phon e Number [place] [address] [place] [address] documented in this encounter Visit Diagnoses Diagnosis Type 1 diabetes mellitus with complicati ons (H) Uncontrolled type 1 diabetes mellitus wi th stage 3 chronic kidney disease Type I (juvenile type) diabetes mellitus with renal manifestations, uncontrolled Flatulence, eructation, and gas pain PCOS (polycystic ovarian syndrome) Polycystic ovaries documented in this encounter Care Teams Electrician Supervisor Relationship Specialty Start Date End Date No Ref-Primary, Physician PCP - General 12/25/14 12/28/17 documented as of this encounter
--- OUTSIDE RECORDS SUMMARY | 2022-02-09 13:21 | XMS_ITS | Encounter Summary ---
:1965 Author Organization [facility] Address [address] [place] [address]. [place] [address] Care Team Providers Name Role Phone No Ref-Primary, Physician Primary Care Provider [phone] Reason for Visit Reason Onset Date Comments No Show Diabetes Education No Show 12/10/2016 Encounter Details Date Type Department Care Team Description 12/10/2016 [facility] Yadira Garcia No Show; [facility] Emmy Lewis RN Education; No Show Visit [address] [facility] [phone] [place], [place] (Work) [phone] Social History Tobacco Use Types Packs/Day Years Used Date Smoking Tobacco: Never Smokeless Tobacco: Never Alcohol Use Standard Drinks/Week Comments Yes 0 (1 standard drink = 0.6 oz pure alcoho l) rare Sex Assigned at Date Recorded 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 documented in this encounter Plan of Treatment Not on filedocumented as of this encounter Visit Diagnoses Diagnosis NO SHOW - Primary documented in this encounter Care Teams Senior Administrative Associate Relationship Specialty Start Date End Date No Ref-Primary, Physician PCP - General 12/25/14 12/28/17 documented as of this encounter
--- OUTSIDE RECORDS SUMMARY | 2022-02-09 13:21 | XMS_ITS | Encounter Summary ---
:1965 Author Organization [facility] Address [address] [place] [address]. [place] [address] Care Team Providers Name Role Phone No Ref-Primary, Physician Primary Care Provider [phone] Reason for Visit Reason Onset Date Comments Medication Request 01/26/2017 test strips Encounter Details Date Type Department Care Team Description [facility], Medication Request (test [place] [employer] strips) [address] [facility] [id number] [place] [phone] [id number] (Wo rk) Social History Tobacco Use Types Packs/Day Years Used Date Smoking Tobacco: Never Smokeless Tobacco: Never Alcohol Use Standard Drinks/Week Comments Yes 0 (1 standard drink = 0.6 oz pure alcoho l) rare Sex Assigned at Date Recorded 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 Ashok Bella RN Telephone Encounter - Annette Alvarez, [employer] - 01/27/2017 12:25 PM CDT Please call [...] work shift times, OK to leave message [phone] Routing refill request to provider for review/approval because: Drug not active on patient's medication list Ashok Bella RN documented in this encounter Plan of Treatment Not on filedocumented as of this encounter Visit Diagnoses Diagnosis Type 1 diabetes mellitus with complicati ons (H) - Primary Uncontrolled type 1 diabetes mellitus wi th stage 3 chronic kidney disease Type I (juvenile type) diabetes mellitus with renal manifestations, uncontrolled documented in this encounter Care Teams Post Form Remover Relationship Specialty Start Date End Date No Ref-Primary, Physician PCP - General 12/25/14 12/28/17 documented as of this encounter
--- OUTSIDE RECORDS SUMMARY | 2022-02-09 13:23 | XMS_ITS | Clinical Summary ---
:1965 Author Organization [facility] [place] [address] Care Team Providers Name Role Phone None Unavailable Unavailable Pcp, No Primary Care Provider Unavailable [facility], [place] Unavailable [phone] Allergies Active Allergy Reactions Severity Noted Date Comments Ibuprofen Stomach Upset 11/22/2013 Medications Medication Sig Dispensed Refills Start End Status Date Date aspirin enteric Take 1 tablet by 0 06/01/19 Active coated 81 mg mouth once daily 14 tabletIndications: with a meal. Diabetes mellitus type 1 (HC) citalopram (CELEXA) TAKE ONE TABLET 90 tablet 0 10/14/19 Active 40 mg BY MOUTH ONCE 17 tabletIndications: DAILY Depression with anxiety GLUCAGON EMERGENCY INJECT 1 MG 2 Each 2 10/27/19 Active KIT, HUMAN, 1 mg INTRAMUSCULAR 17 kitIndications: ONE TIME IF Type 1 diabetes NEEDED FOR LOW mellitus with other BLOOD SUGAR AND specified UNABLE TO complication (HC) SWALLOW tolterodine TAKE ONE TABLET 180 tablet 0 02/10/20 A ctive (DETROL) 2 mg BY MOUTH TWICE 17 tabletIndications: DAILY Urinary incontinence, unspecified type estradiol (ESTRACE) Insert 0.5 g 3 10/29/19 Active 0.1 mg/g vaginal into the vagina. 18 cream Two days per week levothyroxine Take 200 mcg by 0 Active (SYNTHROID) 200 mcg mouth before tablet breakfast. pregabalin (LYRICA) Take 300 mg by 0 Active 300 mg capsule mouth two times daily. methocarbamoL Take 500 mg by 0 A ctive (ROBAXIN) 500 mg mouth 4 times tablet daily if needed for Muscle Spasm. amoxicillin Take 2,000 mg by 0 A ctive (AMOXIL) 500 mg mouth each time capsule if needed (prior to dentist appointment). oxybutynin XL Take 10 mg by 0 Ac tive (DITROPAN XL) 10 mg mouth once CR tablet daily. phentermine Take 37.5 mg by 0 Ac tive (ADIPEX-P) 37.5 mg mouth once tablet daily. calcium Take 1 Tablet by 0 Act thai carbonate-vitamin mouth once daily D3, 600 mg-400 with a meal. unit, 600 mg-10 mcg (400 unit) tablet lansoprazole Take 30 mg by 0 Act thai (PREVACID) 30 mg mouth two times capsule daily before meals. rizatriptan (MAXALT Place 10 mg on 0 Active SOLID WASTE MANAGEMENT ENGINEER) 10 mg the tongue 2 disintegrating times daily if tablet needed for Migraine. Give at minimum 2hrs apart. Max Dose: 30mg per 24hrs. topiramate Take 200 mg by 0 Acti ve (TOPAMAX) 100 mg mouth once tablet daily. amitriptyline Take 25-50 mg by 0 Active (ELAVIL) 25 mg mouth at bedtime tablet if needed. furosemide (LASIX) Take 40 mg by 0 Active 40 mg tablet mouth once daily. valACYclovir Take 500 mg by 0 Ac tive (VALTREX) 500 mg mouth 2 times tablet daily if needed. vitamin B complex Take 1 Tablet by 0 Active (B-COMPLEX VITAMIN) mouth once tablet daily. docusate (COLACE) Take 100 mg by 0 Active 100 mg capsule mouth once daily. cefdinir (OMNICEF) Take 1 Capsule 16 Capsule 0 02/05/2002/12 Active 300 mg (300 mg) by 22 022 capsuleIndications: mouth two times Intra-abdominal daily for 8 abscess (HC) days. metroNIDAZOLE Take 1 Tablet 16 Tablet 0 02/05/20 Ac tive (FLAGYL) 500 mg (500 mg) by 22 022 tabletIndications: mouth two times Intra-abdominal daily for 8 abscess (HC) days. acetaminophen Take 2 Tablets 0 02/06/20 A ctive (TYLENOL EXTRA (1,000 mg) by 22 022 STRGTH) 500 mg mouth three tabletIndications: times daily for Intra-abdominal 7 days. Max abscess (HC) acetaminophen dose: 4000mg in 24 hrs. amLODIPine Take 1 Tablet 30 Tablet 0 02/07/20 Activ e (NORVASC) 10 mg (10 mg) by mouth 22 tabletIndications: once daily. HTN (hypertension) HYDROmorphone Take 1 Tablet (2 10 Tablet 0 02/06/20 Active (DILAUDID) 2 mg mg) by mouth 22 tabletIndications: every 6 hours if Intra-abdominal needed for Pain. abscess (HC) insulin aspart, For use with 0 02/06/20 A ctive U-100, (NOVOLOG insulin pump. 22 FLEXPEN) 100 Use up to 125 unit/mL (3 mL) units per day. penIndications: Basal rate 1.15 Type 1 diabetes units per hour. mellitus with Correction hypoglycemia and factor 25. without coma (HC) Insulin to carbohydrate ratio 1: 8.5 omeprazole Take 1 capsule 180 capsule 3 06/01/19 Di scontinued (PRILOSEC) 20 mg by mouth 2 times 14 022 (Pharmacist capsuleIndications: daily before change per GERD meals. medication (gastroesophageal hi story reflux disease), (E- cancel not Cricopharyngeal sent )) spasm Insulin Bastian, For 1 box 11 03/01/20 Dis continued Disposable, administering 14 022 (Pha rmacist (NOVOFINE 30) 30 x insulin at home. change per 03/30 Indications: me dication Diabetes mellitus hi story type 1 (HC) (E-cance l not sent)) lancets (ACCU-CHEK Dispense item 102 Each 1 01/12/20 Discontinued FASTCLIX)Indication covered by pt 16 022 (Pharmacist s: Type 1 diabetes ins. E10.9 IDDM change per mellitus without type I - Test up medication complication (HC) to 5 times/day. history Reason: High A1C (E- cancel not sent)) pregabalin (LYRICA) Take 1 capsule 180 capsule 3 05/04/19 Discontinued 75 mg by mouth 2 times 17 022 (Ph armacist capsuleIndications: daily. change per Diabetic peripheral medication neuropathy (HC) hist ory (E-cancel not sent)) amitriptyline TAKE ONE TABLET 90 tablet 3 11/09/19 Discontinued (ELAVIL) 25 mg BY MOUTH AT 17 022 (Ph armacist tabletIndications: BEDTIME c hange per Other chronic pain m edication history (E-cancel not sent)) ACCU-CHEK RADHA TEST UP TO 5 500 Strip 3 01/30/20 D iscontinued PLUS TEST STRP TIMES/DAY 17 022 (Phar macist stripIndications: ch veronica per Type 1 diabetes medi cation mellitus without his tory complication (HC) (E -cancel not sent)) topiramate [The details of 180 tablet 0 07/05/19 Di scontinued (TOPAMAX) 100 mg the medication 18 022 (Pharmacist tabletIndications: are not c hange per Intractable available medicati on migraine without because there history status migrainosus, are pending (E-cancel not unspecified changes by a sent) ) migraine type home health clinician.] levothyroxine Take 175 mcg by 0 Discontinued (SYNTHROID) 175 mcg mouth once 022 (Pharmacist tablet daily. Every day ovidio nge per but Tuesday, on medic ation Tuesday she takes his tory 1/2 tablet (87.5 (E- cancel not mcg) sent)) lisinopril Take 20 mg by 0 Disco ntinued (PRINIVIL; ZESTRIL) mouth once 022 (Pharmacist 20 mg tablet daily. change per medication history (E-cancel not sent)) mirabegron Take 25 mg by 0 Disco ntinued EXTENDED-release mouth once 022 (P harmacist (MYRBETRIQ) 25 mg daily. dirk martin per tablet medication history (E-cancel not sent)) furosemide (LASIX) Take 1 tablet by 180 tablet 3 09/20/19 Discontinued 80 mg mouth once daily 18 022 (Ph armacist tabletIndications: if needed. change per Peripheral edema med ication history (E-cancel not sent)) insulin degludec Inject 40 Units 0 09/23/19 Discontinued (TRESIBA) 200 subcutaneous 18 022 (Ph armacist unit/mL (3 mL) every morning. change per subcutaneous pen med ication history (E-cancel not sent)) insulin aspart, Inject 0 09/23/19 Disc ontinued U-100, (NOVOLOG subcutaneous. 18 022 (Reorder FLEXPEN) 100 For use with (E-c ancel not unit/mL (3 mL) pen insulin pump. sent)) Use up to 125 units per day. insulin aspart Inject 0 09/23/19 Disco ntinued U-100 (NOVOLOG) 100 subcutaneous 3 18 022 (Pharmacist unit/mL solution times daily c hange per for injection before meals. 2 medication units for every hist ory 10 grams of (E-cance l not carbs sent)) naloxone (NARCAN) Inject 0.4 mg 0 09/10/19 Discontinued 0.4 mg/mL injection intramuscular. 18 022 (Pharmacist vial To use if needed ovidio nge per for opiod medication overdose history (E-cancel not sent)) acetaminophen Take 1,000 mg by 0 09/27/19 Discontinued (TYLENOL EXTRA mouth every 6 18 022 ( Pharmacist STRGTH) 500 mg hours if needed. change per tablet for Pain. Max medica tion acetaminophen histor y dose: 4000mg in (E-c ancel not 24 hrs. sent)) calcium Take 1 tablet by 0 09/23/19 Dis continued carbonate/vitamin mouth once 18 022 ( Pharmacist D3 (CALCIUM + D daily. prater ge per ORAL) medication history (E-cancel not sent)) BIOTIN ORAL Take 1 tablet by 0 09/23/19 D iscontinued mouth once 18 022 (Pharmaci st daily. change per medication history (E-cancel not sent)) prochlorperazine Take 10 mg by 0 09/30/19 Discontinued (COMPAZINE) 10 mg mouth every 6 18 022 (Pharmacist tablet hours if needed prater ge per for medication Nausea/Vomiting. his tory (E-cancel not sent)) oxyCODONE Take 5 mg by 0 09/30/19 Discont inued (ROXICODONE) 5 mg mouth every 4 18 022 (Pharmacist capsule hours if needed prater ge per for Pain. medication history (E-cancel not sent)) niacin 100 mg Take by mouth. 0 D iscontinued tablet 022 (Pharmacis t change per medication history (E-cancel not sent)) pantoprazole Take 20 mg by 0 10/14/19 Dis continued (PROTONIX) 20 mg mouth once 18 022 (P harmacist tablet daily. change per medication history (E-cancel not sent)) sennosides (SENNA) Take 2 tablets 0 Discontinued 8.6 mg tablet by mouth once 022 (P harmacist daily if needed. ovidio nge per medication history (E-cancel not sent)) lisinopriL Take 10 mg by 0 Disco ntinued (PRINIVIL; ZESTRIL) mouth once 022 (*IP 10 mg tablet daily. Discont inued) HYDROcodone-acetami Take 1-2 Tablets 0 01/27 Discontinued nophen (NORCO) by mouth every 6 022 (*IP 5-325 mg per tablet hours if needed Discontinued) for Pain. Max acetaminophen dose: 4000 mg in 24 hrs. Active Problems Problem Noted Date Ascending cholangitis 02/05/2022 Septic shock 01/26/2022 Acute on chronic kidney failure 01/26/2022 Calculus of bile duct with acute cholangitis 2 Cellulitis of left ring finger 09/13/2017 MRSA [...] Staphylococcus aureus infection 12/30/2014 Overview: Overview: Beronica 12-29-14 (surveillance swab for hea lth care worker, [...] a few week. Met with Naveen, the childbirth educator, ~2 months ago. Hypothyroidism Overview: Formatting of this note is dif ferent from the original. Levothyroxine. TSH (uIU/mL) Date Value 05/04/2016 0.24 (L) Knee osteoarthritis Overview: bilateral, has had injections. Hurts artie ly. Pain 7-8/10. Can't be seen at [facility], owes them money. They suggested 2 total knee replacements. Has osteophytes and bone spurs. Cortisone injections last 1-2 weeks. S/p nephrectomy Overview: Congenital disorder of kidney. Postoperative intra-abdominal abscess Resolved Problems Problem Noted Date Resolved Date [...] Encounters Date Type Specialty Care Team Description 02/05/2022 Telephone Dori Davidson, Referral (Liaison Referral) RN 01/25/2022 Anesthesia Event Pam Osorio DO 01/25/2022 Surgery Jonathan Donaldson ENDOSCOPIC RETR JULIEN Payne MD CHOLANGIOPAN CREATOGRAPHY 01/25/2022 [facility] Nikita Gross Intra-abdominal abscess (HC) (Primary Dx ); - Encounter McMenomy, Nathaniel HTN (hype rtension); 02/05/2022 MD Zbigniew Type 1 diabetes mellitus with hypoglycem ia and without coma (HC) Nathaniel Kulkarni MD Wirt, DO Kelvin Rosa Mos[place], MD Odenbach, Paul Jeffrey, MD [facility], [facility] Hospitalists Of Discharge Summary - Phuc Shipley MD - 02/05/2022 2:00 PM CST Images from the original not e were not included. HOSPITALIST DISCHARGE SUMMAR Y ? ? Michele [facility] Admission Date: 01/25/2022 Discharge Date: 02/05/2022 Discharge Plan: Amaury cedillo was discharged to home and with home health care. Principal Diagnosis Septic shock from ascending cholangitis Hospital Problem List Principal Problem: Septic shock (HC) Active Problems: Diabetes mellitus type 1 (H C) Hypothyroidism GERD (gastroesophageal refl ux disease) Calculus of bile duct with acute cholangitis Acute on chronic kidney kseniarudy marin (HC) Postoperative intra-abdomin al abscess Ascending cholangitis Hospital Course Ms. Amaury Carbajal is a 56 y.o. female with a history of type 1 DM, s/p nephrectomy, obesity, recent laparascopic cholecystectomy with SARAY drain placement 3 days prior to presenting to [place] ER on 01/24 with abdominal pain an d shortness of breath. Per notes, At ER OSH, she wa s found to have leukocytosis, hypotension (77/43), an elevated lactate of 2.7, and CBD dilation to 17 mm (from 7 mm few days prior) concerning for ascending cholangitis from a retained gallstone. BP tra nsiently improved with IVF boluses however became hypotensive again after 4L prompting initiation of a Levophed infusion. She was also noted to have an JOSE with an initial cr eatinine of 5.6 that improve d slightly to 5.1 after IVF. She was reportedly hypoxemic initially controlled with 2 lpm NC O2 on ER arrival, however her requirements increased to 10 lpm face mask. She lyla dumont uses a home insulin pu mp for her diabetes however it ran out of insulin, prompting initiation of an IV insulin infusion in the ER. On admission to [facility] on 01/25, she was on 2L of oxygen, continued on levophed. GI consulted and she underwent emergent ERCP on 01/25 which revealed moderately dilated common bile duct with choledocholithias is. She had complete stone removal and biliary sphincterotomy, balloon extraction and stent placement. Further evaluation for her sepsis with CT abdomen on 01/26 showed a 6.0 x 3.8 cm fluid collection di fferential diagnosis post surgical edema or abscess or biloma - IR placed drain. Gen surgery consulted and recommend conservative management.Head CT unremarkable. Endocrinology consulted for her insulin management. Patient was weaned off press ors on 01/26 and was transferred out of the ICU on 01/26. Patient with continued delirium and confusion, CT head on 01/26 negative for any acute intracranial abnormality. Also n oted to have increasing dysp devin and wheezing. CXR done on 01/30 consistent with pulm edema likely iatrogenic from over resuscitation which improved with IV lasix after her renal function improved. IR drain pulled 02/01 with re solution of fluid collection and SARAY from surgery remains. Klebsiella from body fluid 01/28 and on flagyl/ceftriaxone now and ID followed with plans to finish outpatient course of oral antibiotics and out patient ID follow up. She will follow up with her outpatient general surgeon in 1-2 weeks. She will see her primary MD next week. Of note, was started on norv asc for BP and holding lisinopril given renal function. She also will have her pump remotely monitored by Endocrinology through the weekend given an unintentional bolus was g iven by the pump on 02/05. I f another unintentional bolus occurs she should call [facility] or Endocrinology office of Dr. Low to speak with the aeronautical engineering officer recreation attendant supervisor. Recommendations for Outpatie nt Provider ? ? PCP: No Pcp Recommendations for outpati ent provider Specific recommendations to be addressed at the follow up visit: FOLLOW UP blood pressure an d Creatinine (changed to norvasc from lisinopril). Ensure doing well at home with home care and determine when she could return to work. Ensure follow up with her surgeons in [place]. Discharge Medications Your Home Medicines START taking these medicines Instructions acetaminophen 500 mg tablet For diagnoses: Intra-abdomin al abscess (HC) Commonly known as: TYLENOL E XTRA STRGTH Take 2 Tablets (1,000 mg) b y mouth three times daily for 7 days. Max acetaminophen dose: 4000mg in 24 hrs. amLODIPine 10 mg tablet For diagnoses: HTN (hyperten sarahy) Start taking on: January Commonly known as: NORVASC Take 1 Tablet (10 mg) by mo inh once daily. cefdinir 300 mg capsule For diagnoses: Intra-abdomin al abscess (HC) Commonly known as: OMNICEF Take 1 Capsule (300 mg) by mouth two times daily for 8 days. HYDROmorphone 2 mg tablet For diagnoses: Intra-abdomin al abscess (HC) Commonly known as: DILAUDID Take 1 Tablet (2 mg) by serg th every 6 hours if needed for Pain. metroNIDAZOLE 500 mg tablet For diagnoses: Intra-abdomin al abscess (HC) Commonly known as: FLAGYL Take 1 Tablet (500 mg) by m outh two times daily for 8 days. CHANGE how you take these me dicines Instructions insulin aspart (U-100) 100 u nit/mL (3 mL) pen For diagnoses: Type 1 diabet es mellitus with hypoglycemia and without coma (HC) What changed: ?? how to take this ?? additional instructions Commonly known as: NOVOLOG F LEXPEN For use with insulin pump. Use up to 125 units per day. Basal rate 1.15 units per hour. Correction factor 25. Insulin to carbohydrate ratio 1: 8.5 Doctor's comments: Changed i n ER per MD on 09/20/17 CONTINUE taking these medici luisa Instructions amitriptyline 25 mg tablet Commonly known as: ELAVIL Take 25-50 mg by mouth at b edtime if needed. amoxicillin 500 mg capsule Commonly known as: AMOXIL Take 2,000 mg by mouth each time if needed (prior to dentist appointment). aspirin 81 mg enteric coated tablet For diagnoses: Diabetes oj itus type 1 (HC) Commonly known as: ECOTRIN Take 1 tablet by mouth once daily with a meal. calcium carbonate-vitamin D3 (600 mg-400 unit) 600 mg-10 mcg (400 unit) tablet Take 1 Tablet by mouth once daily with a meal. citalopram 40 mg tablet For diagnoses: Depression wi th anxiety Commonly known as: CELEXA TAKE ONE TABLET BY MOUTH ON CE DAILY docusate 100 mg capsule Commonly known as: COLACE Take 100 mg by mouth once d aily. estradioL 0.01% (0.1 mg/g) v aginal cream Commonly known as: ESTRACE Insert 0.5 g into the vagin a. Two days per week furosemide 40 mg tablet Commonly known as: LASIX Take 40 mg by mouth once da goyo. Glucagon Emergency Kit (adam n) 1 mg injection For diagnoses: Type 1 diabet es mellitus with other specified complication (HC) Generic drug: glucagon INJECT 1 MG INTRAMUSCULAR O NE TIME IF NEEDED FOR LOW BLOOD SUGAR AND UNABLE TO SWALLOW lansoprazole 30 mg capsule Commonly known as: PREVACID Take 30 mg by mouth two julien es daily before meals. levothyroxine 200 mcg tablet Commonly known as: SYNTHROID Take 200 mcg by mouth befor e breakfast. methocarbamoL 500 mg tablet Commonly known as: ROBAXIN Take 500 mg by mouth 4 time s daily if needed for Muscle Spasm. oxybutynin XL 10 mg CR table t Commonly known as: DITROPAN XL Take 10 mg by mouth once da goyo. phentermine 37.5 mg tablet Commonly known as: ADIPEX-P Take 37.5 mg by mouth once daily. pregabalin 300 mg capsule Commonly known as: LYRICA Take 300 mg by mouth two ti mes daily. rizatriptan 10 mg disintegra ting tablet Commonly known as: MAXALT ML T Place 10 mg on the tongue 2 times daily if needed for Migraine. Give at minimum 2hrs apart. Max Dose: 30mg per 24hrs. tolterodine 2 mg tablet For diagnoses: Urinary incon tinence, unspecified type Commonly known as: DETROL TAKE ONE TABLET BY MOUTH TW ICE DAILY topiramate 100 mg tablet Commonly known as: TOPAMAX Take 200 mg by mouth once d aily. valACYclovir 500 mg tablet Commonly known as: VALTREX Take 500 mg by mouth 2 time s daily if needed. vitamin B complex tablet Commonly known as: B-COMPLEX VITAMIN Take 1 Tablet by mouth once daily. STOP taking these medicines HYDROcodone-acetaminophen 5- 325 mg per tablet Commonly known as: NORCO lisinopriL 10 mg tablet Commonly known as: PRINIVIL; ZESTRIL Where to get your medicines These medications were sent to [facility] [address] [place] [address] Hours: Open 24 Hours ?? amLODIPine 10 mg tablet ?? cefdinir 300 mg capsule ?? HYDROmorphone 2 mg tablet ?? metroNIDAZOLE 500 mg tabl et Prescriptions for these medi cines or supplies were NOT printed nor sent to your preferred pharmacy. Check with your doctor if you have questions. Check with your doctor if yo u have questions. ?? acetaminophen 500 mg tabl et ?? insulin aspart (U-100) 10 0 unit/mL (3 mL) pen Pertinent Findings / Procedu res First weight: 121.5 kg (267 lb 13.7 oz) (01/25/22 0200) Last weight: 129 kg (284 lb 6.3 oz) (01/26/22 0600) BP 144/63 (Cuff Size: Adult Large) Pulse 50 Temp 97.8 ??F (36.6 ??C) Resp 18 Ht 1.803 m (5' 11) Wt 129 kg (284 lb 6.3 oz) SpO2 96% BMI 39.66 kg/m?? GENERAL: alert, sitting up i n chair RESPIRATORY: Normal effort. Clear bilaterally no wheezing but decreased breath sounds bilaterally at bases. CARDIOVASCULAR: regular rhyt hm, normal rate, no murmur, rub, or gallop, does have bilateral LE edema ABDOMEN:mild fullness ruq, d istended, no palpable masses or organomegaly, SARAY drain in place with small amount of creamy output and pigtail out . Very mild tenderness. NEUROLOGIC: Alert, oriented to person only, Moves all limbs. PSYCHIATRIC: calm, oriented and appropriate. ?? Labs .rcnt Renal Heme GI 02/03/22 1035 02/04/22 1108 SODIUM 140 -- POTASSIUM 4.0 4.0 CHLORIDE 108 -- [id number] 24 -- ANIONGAP 8 -- BUN 13 -- CREATININE 1.35* 1.47* GLUCOSE 92 -- CALCIUM 8.4* -- 02/03/22 1035 HGB 9.0* MCV 95 Cardiopulmonary ID Endo COVID-19: Not on local file 02/04/22 0212 02/04/22 0849 02/04/22 1309 02/04/22 1330 02/04/22 1347 GLUCOSEMETER 104* 107* 45* 6 0* 73 Micro blood cultures NTD Body fluid culture 01/28 - Kl ebsiella oxytoca Klebsiella oxytoca Not Specified AMPICILLIN >=32 R AMPICILLIN/SULBACTAM 16 I CEFAZOLIN 8 R CEFEPIME <=1 S CEFTAZIDIME <=1 S CEFTRIAXONE <=1 S CIPROFLOXACIN <=0.25 S GENTAMICIN <=1 S LEVOFLOXACIN <=0.12 S MEROPENEM <=0.25 S PIPERACILLIN/TAZO <=4 S TOBRAMYCIN <=1 S TRIMETHOPRIM/SULF <=/19 S ?? Imaging CT ABDOMEN PELVIS 01/26. FINDINGS: The lung bases show trace bi lateral pleural effusions, right greater the left. Bibasilar atelectasis/consolidation, right greater than left. No focal abnormalities ident ified in the visualized portions of the liver, spleen, pancreas, adrenal glands, and left kidney. No left-sided hydronephrosis. No uroliths. The right kidney is absent. [place] catheter in a nondistended urinary bladder. percutaneous drainage evaristo ter in the right upper quadrant. Stent in the common bile duct. No bile duct dilation. Cholecystectomy. 6.0 x 3.8 cm fluid collectio n anterior to the gallbladder fossa. The GI tract is incompletely distended but shows no gross abnormalities. No retroperitoneal, pelvic s idewall, or mesenteric adenopathy. Minimal amount of free fluid in the pelvis measures 30 Hounsfield units. No retroperitoneal, pelvic s idewall, or mesenteric adenopathy. Atherosclerotic vascular calcifications. Impression : 1. Cholecystectomy. 2. Fluid collection anterior to the gallbladder fossa may represent postsurgical edema but cannot exclude a biloma or abscess. 3. Bibasilar atelectasis/con solidation. 4. Minimal amount of postsur gical hemorrhagic free fluid in the pelvis. CT abdomen 02/02/22: 1. Status post cholecystecto my. 2. Increased free air in the gallbladder fossa and tracking along catheter could be due to leak. 3. Moderate bilateral pleura l effusions and bibasilar atelectasis/consolidation, increased. 4. Interval placement of per cutaneous drain anterior to the liver with resolution of associated fluid collection CT HEAD BRAIN WO Impression: 1. Unremarkable CT head. No evidence of acute intracranial abnormality. 2. Degenerative changes of t he TMJs. Transthroacic echocardiogram 01/31/22: 1. Normal left ventricular s ize, normal wall thickness, hyperdynamic global systolic function, calculated EF of 77 %. 2. Right ventricular cavity size is normal, global systolic RV function is normal. 3. No pericardial effusion. 4. Moderately increased est imated pulmonary pressures by tricuspid regurgitation velocity and right atrial pressure (57 mmHg plus RAP). 5. No significant valve dis ease detected. ADDITIONAL COMMENTS I discussed with nursing and with Dr. Low of Endocrinology on day of DC. Consultants Encounter Notes Consults from Kaitlin Lagos MD (Infectious Diseases) Consults from Indra Warren MD (Internal Medicine) Consults from Naveen Marcial MD (Endocrinology) Consults from Larry Boone MD (Surgery - General) Consults from Marilou Regan DO (Resident) Diet / Activity / Follow-Up After Discharge Orders and I nstructions AMB CONSULT TO HOME shelter Health Certification/F verona to Face Attestation: I certify that this patient is confined to his/her home and needs intermittent chcf care, physical therapy and/or speech therapy or continues to need occupational therapy. A plan of care has been established and will be reviewed periodically by a physician or allowed practitioner. Services will be furnished while the patient is under the care of a physician or allowed practitioner. The lizz ent had a [id number] encou nter with a physician or an allowed non-physician practitioner and the encounter was related to the primary reason for home health. Date of the Face to Face Enc ounter: 02/05/2022. Based on my findings, review of the medical records, and/or collaboration with the other providers, the following services are medically necessary home health services: [facility] This patient is confined to his/her home because: There is a taxing effort to leave the home due to abdominal abscess and infection. Patient requires the assista nce of another individual in order to leave the home. Provider following for home care services: No Pcp Electronically signed, Phuc Shipley MD [facility] Answering service: Contact on [employer] 02/05/2022 After Hospital Follow Up Ap pointment(s) Follow up with your Endocri nologist at [facility] within 2-4 weeks. If transfer of care to Jammie Low MD is desired please call her office. Contact information: Jammie Low MD [address] [id number] When to follow up: 2 to 4 w eeks When is patient being disch arged?: Today Caring for your wound or in cision: Change the gauze at your pr ior drain site daily until the site has scabbed over, then you may leave it open to air. It is normal to have a small amount of drainage on this gauze while the site is healing. You may remove the gauze to shower. Change the gauze dressing ov er your belly button incision once daily and as needed if soiled. Remove the gauze and shower daily, washing the incision with warm water and soap. Gently pat dry. Consistent Carbohydrate t: Your body struggles to prater ge carbohydrates into energy. Carbohydrates are milks, fru its, starches (such as bread, cereal, potatoes and pasta); peas and corn; and sweets and desserts. Eat these foods in moderation. Tips for health: - eat balanced meals with fr uits, vegetables, starches, meats and milk products - limit foods high in calori es like cake, candy, cookies, pie and regular soda - choose sugar-free beverage s - build a plate that is one- half vegetables, one-quarter starch, and one- quarter meat or other protein source - consider fruit for dessert - choose foods that have fib er, such as whole grains - eat healthful fats such as olive oil or canola oil FOLLOW As needed F/u with Dr. Cabrera baum or Dr. Lagos or Mrs. Chavira in 2-3 weeks. [facility] address: [address] [place] [address], [address] - phone number is [phone] - You can reach infectious dis eases at [phone] NURSING COMMUNICATION [facility] Your first [facility] e Care visit is planned following hospital discharge. ?? An [facility] nurse or therapist will call you to schedule a visit. The call will occur the day before your first visit or by 9am the day of your first visit. ??Please call [phone] a nd ask for [facility] Care triage if you have further questions about home health. Thank you. Primary Care Provider ayo amezcua up appointment(s) When to follow up: 1 to 5 d ays Rehab Potential: Good [facility] Eval and Tr eat Treatment Options: Full Res uscitation Up as tolerated Get regular activity and tr y to walk for a total of 30 minutes per day. Start by walking for 5 to 10 minutes at one time and slowly build to walking for 30 minutes one time. Rest is also an important pa rt of healing. Slowly return to your regular level of activity. Save your energy by spreading out activities that make you tired. Rest as needed. When should you be concerne d? Your health care provider i s: No Pcp Please call your health care provider if: - you feel you are getting w orse or having an increase in problems - fever greater than 101 deg isabel - increasing shortness of br eath - any signs of infection (in creasing redness, swelling, tenderness, warmth, change in appearance, or increased drainage) - blood in your urine or sto ol - coughing or vomiting blood - nausea (upset stomach) and vomiting and/or diarrhea that will not stop - severe pain that is not re lieved by medicine, rest or ice Call 911 if you feel you are having a medical emergency. [facility] You were in the hospital fo r abscess in abdomen. You need to follow up with primary MD this next week and your surgeon in [place] in 1-2 weeks. Follow up with Infectious Disease as well. Pending Studies Lab results that may not be resulted at time of discharge: (From admission through now) None Total time spent on discharg e coordination: 55 minutes. Patient was seen and examined today. Phuc Shipley MD Hospitalist, [facility] ? ? [phone] E[employer]OR OF [employer]ESTRY 01/22/2022 Lab Requisition Tamar Solorzano MD from [...] Sign Reading Time Taken Comments Blood Pressure 144/63 02/05/2022 7:34 AM PROFESSOR OF FORESTRY Pulse 50 02/05/2022 7:34 AM PROF[employer]OR [employer] FORESTRY Temperature 36.6 ??C (97.8 ??F) 02/05/2022 7:34 AM PROFESSOR OF FORESTRY Respiratory Rate 18 02/05/2022 7:34 AM PROFESSOR OF FORESTRY Oxygen Saturation 96% 02/05/2022 7:34 AM PROFESSOR OF FORESTRY Inhaled Oxygen Concentration - - Weight 129 kg (284 lb 6.3 oz) 01/26/2022 6:00 AM CDT Height 180.3 cm (5' 11) 01/25/2022 2:00 AM CDT Body Mass Index 39.66 01/25/2022 2:00 AM CDT Plan of Treatment Health Maintenance Due Date Last Done Comments Hepatitis C screening for age 1202/28[birth year]1983 18-79 Zoster (shingles) series for age 1202/29/1984 50+ (1 of 2) Colonoscopy through age 75 2010 Mammogram for age 45-75 2010 Depression screening for age 12+ 05/04/2017 05/04/2016, , 01/12/2016, Additional history exists BMI (ht and wt on same day) for 06/28/2017 06/28/2016, 12/26, age 18+ 11/05/2015, Additional history exists Lipids for age 45-75 06/22/2018 06/22/2013 Pap test for age 21-65 06/09/2020 06/09/2017, 06/09/2017 COVID-19 vaccine series (3 - 08/07/2020 06/12/2020, 021 Booster for Pfizer series) Influenza for age 50-64 11/26/2021 01/12/2016, 12/26/2013 Tetanus booster 01/11/2026 01/12/2016, 08/24/2005 Tdap Completed 08/24/2005 Medical Devices Implanted Type Area Battery Starter Device Shelf Model / Identifier Expiration Serial / Lot Date Stent Biliary [id number] Advanix Duodenal Bend Plst N/A: 10/29/2023 [id number] / Implanted: Qty: 1 on 01/25/2022 by Nathaniel Donaldson MD at [facility] Common / Bile Duct [id number] Description: Stent Biliary [id number] Adva nix Duodenal Bend Plst Procedures Procedure Name Priority Date/Time Associated Comments Diagnosis GLUCOSE METER Timed 02/05/2022 Results for 12:36 PM PROFESSOR OF FORESTRY this procedure are in the results section. GLUCOSE METER Timed 02/05/2022 Results for 7:33 AM PROF[employer]OR [employer] FORESTRY this procedure are in the results section. GLUCOSE METER Timed 02/05/2022 Results for 2:19 AM [employer]ESTRY this procedure are in the results section. GLUCOSE METER Timed 02/04/2022 Results for 9:36 PM [employer]OR [employer]Y this procedure are in the results section. GLUCOSE METER Timed 02/04/2022 Results for 5:04 PM [employer] this procedure are in the results section. GLUCOSE METER Timed 02/04/2022 Results for 1:47 PM [employer]ESTRY this procedure are in the results section. GLUCOSE METER Timed 02/04/2022 Results for 1:30 PM [employer]OR [employer]ESTRY this procedure are in the results section. GLUCOSE METER Timed 02/04/2022 Results for 1:09 PM [employer]OR [employer]Y this procedure are in the results section. POTASSIUM Early AM 02/04/2022 Results for 11:08 AM [employer]ESTRY this procedure are in the results section. CREATININE Early AM 02/04/2022 Results for 11:08 AM [employer]OR [employer]ESTRY this procedure are in the results section. GLUCOSE METER Timed 02/04/2022 Results for 8:49 AM PROF[employer]OR [employer]ESTRY this procedure are in the results section. GLUCOSE METER Timed 02/04/2022 Results for 2:12 AM [employer]ESTRY this procedure are in the results section. GLUCOSE METER Timed 02/03/2022 Results for 10:02 PM PROF[employer]OR [employer] FORESTRY this procedure are in the results section. GLUCOSE METER Timed 02/03/2022 Results for 7:03 PM PROF[employer]OR OF FORESTRY this procedure are in the results section. GLUCOSE METER Timed 02/03/2022 Results for 6:43 PM PROF[employer]OR [employer] FORESTRY this procedure are in the results section. GLUCOSE METER Timed 02/03/2022 Results for 12:20 PM PROF[employer]OR [employer]ESTRY this procedure are in the results section. HEMOGLOBIN Early AM 02/03/2022 Results for 10:35 AM PROF[employer]OR [employer]ESTRY this procedure are in the results section. BASIC METABOLIC PANEL Early AM 02/03/2022 Result s for 10:35 AM PROF[employer]OR [employer]ESTRY this procedure are in the results section. GLUCOSE METER Timed 02/03/2022 Results for 8:09 AM PROF[employer]OR [employer]ESTRY this procedure are in the results section. GLUCOSE METER Timed 02/03/2022 Results for 2:38 AM PROF[employer]OR [employer] FORESTRY this procedure are in the results section. GLUCOSE METER Timed 02/02/2022 Results for 9:54 PM PROF[employer] FORESTRY this procedure are in the results section. GLUCOSE METER Timed 02/02/2022 Results for 5:47 PM PROF[employer]OR [employer] FORESTRY this procedure are in the results section. GLUCOSE METER Timed 02/02/2022 Results for 11:50 AM PROF[employer]OR [employer] FORESTRY this procedure are in the results section. CBC W PLT NO DIFF Early AM 02/02/2022 Results fo r 8:27 AM PROF[employer]OR [employer] FORESTRY this procedure are in the results section. HEPATIC FUNCTION PANEL Early AM 02/02/2022 Resul ts for 8:26 AM PROFESSOR [employer] FORESTRY this procedure are in the results section. BASIC METABOLIC PANEL Early AM 02/02/2022 Result s for 8:26 AM PROF[employer]OR [employer]ESTRY this procedure are in the results section. GLUCOSE METER Timed 02/02/2022 Results for 7:53 AM PROF[employer]OR OF FORESTRY this procedure are in the results section. GLUCOSE METER Timed 02/02/2022 Results for 2:12 AM PROF[employer]OR OF FORESTRY this procedure are in the results section. GLUCOSE METER Timed 02/01/2022 Results for 9:36 PM [employer]ESTRY this procedure are in the results section. GLUCOSE METER Timed 02/01/2022 Results for 5:42 PM PROF[employer]OR OF FORESTRY this procedure are in the results section. GLUCOSE METER Timed 02/01/2022 Results for 5:24 PM [employer]OR [employer] FORESTRY this procedure are in the results section. POTASSIUM Today 02/01/2022 Results for 4:58 PM PROFESSOR [employer] FORESTRY this procedure are in the results section. GLUCOSE METER Timed 02/01/2022 Results for 4:56 PM PROF[employer]OR [employer] FORESTRY this procedure are in the results section. XR PERCUTANEOUS TUBE REMOVAL Routine 02/01/2022 Results for 4:34 PM PROFESSOR [employer] FORESTRY this procedure are in the results section. GLUCOSE METER Timed 02/01/2022 Results for 12:12 PM PROFESSOR OF FORESTRY this procedure are in the results section. CT ABDOMEN PELVIS WO Routine 02/01/2022 Results for 11:51 AM PROFESSOR OF FORESTRY this procedure are in the results section. GLUCOSE METER Timed 02/01/2022 Results for 8:33 AM PROFESSOR OF FORESTRY this procedure are in the results section. GLUCOSE METER Timed 02/01/2022 Results for 8:19 AM PROFESSOR OF FORESTRY this procedure are in the results section. GLUCOSE METER Timed 02/01/2022 Results for 4:10 AM PROFESSOR OF FORESTRY this procedure are in the results section. GLUCOSE METER Timed 02/01/2022 Results for 12:55 AM PROF[employer]OR OF FORESTRY this procedure are in the results section. GLUCOSE METER Timed 01/31/2022 Results for 9:50 PM PROFESSOR OF FORESTRY this procedure are in the results section. GLUCOSE METER Timed 01/31/2022 Results for 5:24 PM PROFESSOR [employer] FORESTRY this procedure are in the results section. GLUCOSE METER Timed 01/31/2022 Results for 1:30 PM PROF[employer]OR [employer]ESTRY this procedure are in the results section. ECHO COMPLETE W CONTRAST Routine 01/31/2022 Res ults for 1:02 PM PROF[employer]OR [employer]ESTRY this procedure are in the results section. HEMOGLOBIN Early AM 01/31/2022 Results for 10:19 AM PROF[employer]OR [employer]ESTRY this procedure are in the results section. WHITE BLOOD COUNT Early AM 01/31/2022 Results fo r 10:19 AM PROF[employer]OR [employer] FORESTRY this procedure are in the results section. BASIC METABOLIC PANEL Early AM 01/31/2022 Result s for 10:19 AM PROFESSOR [employer]ESTRY this procedure are in the results section. GLUCOSE METER Timed 01/31/2022 Results for 10:03 AM PROFESSOR OF FORESTRY this procedure are in the results section. GLUCOSE METER Timed 01/31/2022 Results for 7:45 AM PROFESSOR OF FORESTRY this procedure are in the results section. GLUCOSE METER Timed 01/31/2022 Results for 7:29 AM PROFESSOR OF FORESTRY this procedure are in the results section. GLUCOSE METER Timed 01/31/2022 Results for 7:22 AM PROFESSOR OF FORESTRY this procedure are in the results section. GLUCOSE METER Timed 01/31/2022 Results for 6:51 AM PROFESSOR OF FORESTRY this procedure are in the results section. GLUCOSE METER Timed 01/31/2022 Results for 2:13 AM PROFESSOR OF FORESTRY this procedure are in the results section. GLUCOSE METER Timed 01/30/2022 Results for 10:34 PM CDT this procedure are in the results section. GLUCOSE METER Timed 01/30/2022 Results for 6:34 PM CDT this procedure are in the results section. GLUCOSE METER Timed 01/30/2022 Results for 1:53 PM CDT this procedure are in the results section. XR CHEST 1 VIEW PORTABLE YAHAIRA 01/30/2022 Res ults for 1:18 PM CDT this procedure are in the results section. BLOOD GAS,VENOUS YAHAIRA 01/30/2022 Results for 1:16 PM CDT this procedure are in the results section. BILIRUBIN,TOTAL/DIRECT YAHAIRA 01/30/2022 Resul ts for 1:14 PM CDT this procedure are in the results section. AMMONIA YAHAIRA 01/30/2022 Results for 1:14 PM CDT this procedure are in the results section. GLUCOSE METER Timed 01/30/2022 Results for 9:53 AM CDT this procedure are in the results section. GLUCOSE METER Timed 01/30/2022 Results for 6:06 AM CDT this procedure are in the results section. AST (SGOT) Early AM 01/30/2022 Results for 4:01 AM CDT this procedure are in the results section. ALT (SGPT) Early AM 01/30/2022 Results for 4:01 AM CDT this procedure are in the results section. CREATININE Early AM 01/30/2022 Results for 4:01 AM CDT this procedure are in the results section. WHITE BLOOD COUNT Early AM 01/30/2022 Results fo r 4:01 AM CDT this procedure are in the results section. HEMOGLOBIN Early AM 01/30/2022 Results for 4:01 AM CDT this procedure are in the results section. GLUCOSE METER Timed 01/30/2022 Results for 2:03 AM CDT this procedure are in the results section. GLUCOSE METER Timed 01/29/2022 Results for 9:38 PM CDT this procedure are in the results section. GLUCOSE METER Timed 01/29/2022 Results for 5:21 PM CDT this procedure are in the results section. GLUCOSE METER Timed 01/29/2022 Results for 2:02 PM CDT this procedure are in the results section. GLUCOSE METER Timed 01/29/2022 Results for 9:57 AM CDT this procedure are in the results section. GLUCOSE METER Timed 01/29/2022 Results for 9:14 AM CDT this procedure are in the results section. HEPATIC FUNCTION PANEL YAHAIRA 01/29/2022 Resul ts for 6:18 AM CDT this procedure are in the results section. BASIC METABOLIC PANEL Early AM 01/29/2022 Result s for 6:18 AM CDT this procedure are in the results section. CBC W PLT NO DIFF Early AM 01/29/2022 Results fo r 6:18 AM CDT this procedure are in the results section. GLUCOSE METER Timed 01/29/2022 Results for 5:50 AM CDT this procedure are in the results section. GLUCOSE METER Timed 01/29/2022 Results for 2:32 AM CDT this procedure are in the results section. GLUCOSE METER Timed 01/28/2022 Results for 10:04 PM CDT this procedure are in the results section. GLUCOSE METER Timed 01/28/2022 Results for 6:10 PM CDT this procedure are in the results section. SCAN-CARDIAC STRIP 01/28/2022 5:30 PM CDT BODY FLUID CULTURE,STAIN Today 01/28/2022 Res ults for (AEROBIC) 4:16 PM CDT this procedure are in the results section. ANAEROBIC CULTURE Today 01/28/2022 Results fo r 4:16 PM CDT this procedure are in the results section. GLUCOSE METER Timed 01/28/2022 Results for 4:09 PM CDT this procedure are in the results section. CT DRAIN PERITONEAL Routine 01/28/2022 Results for RETROPERITONEAL INC GUIDE 3:32 PM CDT th is procedure are in the results section. GLUCOSE METER Timed 01/28/2022 Results for 12:57 PM CDT this procedure are in the results section. GLUCOSE METER Timed 01/28/2022 Results for 11:19 AM CDT this procedure are in the results section. GLUCOSE METER Timed 01/28/2022 Results for 10:24 AM CDT this procedure are in the results section. SCAN-CARDIAC STRIP 01/28/2022 9:21 AM CDT HEPATIC FUNCTION PANEL YAHAIRA 01/28/2022 Resul ts for 9:03 AM CDT this procedure are in the results section. CBC W PLT NO DIFF YAHAIRA 01/28/2022 Results fo r 9:03 AM CDT this procedure are in the results section. BASIC METABOLIC PANEL YAHAIRA 01/28/2022 Result s for 9:03 AM CDT this procedure are in the results section. MAGNESIUM Early AM 01/28/2022 Results for 9:03 AM CDT this procedure are in the results section. GLUCOSE METER Timed 01/28/2022 Results for 8:58 AM CDT this procedure are in the results section. GLUCOSE METER Timed 01/28/2022 Results for 8:05 AM CDT this procedure are in the results section. GLUCOSE METER Timed 01/28/2022 Results for 6:02 AM CDT this procedure are in the results section. GLUCOSE METER Timed 01/28/2022 Results for 4:18 AM CDT this procedure are in the results section. GLUCOSE METER Timed 01/28/2022 Results for 2:02 AM CDT this procedure are in the results section. GLUCOSE METER Timed 01/27/2022 Results for 11:56 PM CDT this procedure are in the results section. GLUCOSE METER Timed 01/27/2022 Results for 10:13 PM CDT this procedure are in the results section. GLUCOSE METER Timed 01/27/2022 Results for 9:04 PM CDT this procedure are in the results section. GLUCOSE METER Timed 01/27/2022 Results for 8:11 PM CDT this procedure are in the results section. GLUCOSE METER Timed 01/27/2022 Results for 7:04 PM CDT this procedure are in the results section. GLUCOSE METER Timed 01/27/2022 Results for 5:13 PM CDT this procedure are in the results section. GLUCOSE METER Timed 01/27/2022 Results for 4:16 PM CDT this procedure are in the results section. GLUCOSE METER Timed 01/27/2022 Results for 3:17 PM CDT this procedure are in the results section. SCAN-CARDIAC STRIP 01/27/2022 3:00 PM CDT GLUCOSE METER Timed 01/27/2022 Results for 2:19 PM CDT this procedure are in the results section. GLUCOSE METER Timed 01/27/2022 Results for 1:11 PM CDT this procedure are in the results section. GLUCOSE METER Timed 01/27/2022 Results for 11:50 AM CDT this procedure are in the results section. GLUCOSE METER Timed 01/27/2022 Results for 10:39 AM CDT this procedure are in the results section. GLUCOSE METER Timed 01/27/2022 Results for 9:34 AM CDT this procedure are in the results section. AMMONIA Today 01/27/2022 Results for 8:46 AM CDT this procedure are in the results section. HEPATIC FUNCTION PANEL Early AM 01/27/2022 Resul ts for 8:46 AM CDT this procedure are in the results section. BASIC METABOLIC PANEL Early AM 01/27/2022 Result s for 8:46 AM CDT this procedure are in the results section. CBC W PLT NO DIFF Early AM 01/27/2022 Results fo r 8:46 AM CDT this procedure are in the results section. CK TOTAL Timed 01/27/2022 Results for 8:46 AM CDT this procedure are in the results section. GLUCOSE METER Timed 01/27/2022 Results for 8:34 AM CDT this procedure are in the results section. SCAN-CARDIAC STRIP 01/27/2022 8:08 AM CDT GLUCOSE METER Timed 01/27/2022 Results for 7:38 AM CDT this procedure are in the results section. GLUCOSE METER Timed 01/27/2022 Results for 6:30 AM CDT this procedure are in the results section. GLUCOSE METER Timed 01/27/2022 Results for 5:20 AM CDT this procedure are in the results section. GLUCOSE METER Timed 01/27/2022 Results for 4:01 AM CDT this procedure are in the results section. GLUCOSE METER Timed 01/27/2022 Results for 2:35 AM CDT this procedure are in the results section. BH STAT DRUG SCREEN Today 01/27/2022 Results for 2:08 AM CDT this procedure are in the results section. GLUCOSE METER Timed 01/26/2022 Results for 11:39 PM CDT this procedure are in the results section. GLUCOSE METER Timed 01/26/2022 Results for 10:01 PM CDT this procedure are in the results section. GLUCOSE METER Timed 01/26/2022 Results for 7:46 PM CDT this procedure are in the results section. GLUCOSE METER Timed 01/26/2022 Results for 5:37 PM CDT this procedure are in the results section. PROCALCITONIN YAHAIRA 01/26/2022 Results for 4:52 PM CDT this procedure are in the results section. TSH YAHAIRA 01/26/2022 Results for 4:52 PM CDT this procedure are in the results section. T4,FREE YAHAIRA 01/26/2022 Results for 4:52 PM CDT this procedure are in the results section. CK TOTAL Timed 01/26/2022 Results for 4:52 PM CDT this procedure are in the results section. [facility] DRAW Timed 01/26/2022 Results for ONLY 4:52 PM CDT this procedure are in the results section. GLUCOSE METER Timed 01/26/2022 Results for 3:42 PM CDT this procedure are in the results section. GLUCOSE METER Timed 01/26/2022 Results for 2:05 PM CDT this procedure are in the results section. GLUCOSE METER Timed 01/26/2022 Results for 12:02 PM CDT this procedure are in the results section. CT ABDOMEN PELVIS WO STAT 01/26/2022 Results for 10:56 AM CDT this procedure are in the results section. CT HEAD BRAIN WO Routine 01/26/2022 Results for 10:30 AM CDT this procedure are in the results section. GLUCOSE METER Timed 01/26/2022 Results for 10:01 AM CDT this procedure are in the results section. GLUCOSE METER Timed 01/26/2022 Results for 7:56 AM CDT this procedure are in the results section. SCAN-CARDIAC STRIP 01/26/2022 7:21 AM CDT GLUCOSE METER Timed 01/26/2022 Results for 5:29 AM CDT this procedure are in the results section. HEMOGLOBIN A1C SCREENING YAHAIRA 01/26/2022 Res ults for 4:17 AM CDT this procedure are in the results section. ,SERUM YAHAIRA 01/26/2022 Results for 4:17 AM CDT this procedure are in the results section. LIPASE YAHAIRA 01/26/2022 Results for 4:17 AM CDT this procedure are in the results section. HEPATIC FUNCTION PANEL YAHAIRA 01/26/2022 Resul ts for 4:17 AM CDT this procedure are in the results section. CK TOTAL Early AM 01/26/2022 Results for 4:17 AM CDT this procedure are in the results section. CBC W PLT NO DIFF Early AM 01/26/2022 Results fo r 4:17 AM CDT this procedure are in the results section. BLOOD GAS,VENOUS Early AM 01/26/2022 Results for 4:17 AM CDT this procedure are in the results section. BASIC METABOLIC PANEL Early AM 01/26/2022 Result s for 4:17 AM CDT this procedure are in the results section. GLUCOSE METER Timed 01/26/2022 Results for 3:12 AM CDT this procedure are in the results section. GLUCOSE METER Timed 01/26/2022 Results for 12:53 AM CDT this procedure are in the results section. GLUCOSE METER Timed 01/25/2022 Results for 11:28 PM CDT this procedure are in the results section. GLUCOSE METER Timed 01/25/2022 Results for 10:31 PM CDT this procedure are in the results section. CK TOTAL STAT 01/25/2022 Results for 9:40 PM CDT this procedure are in the results section. C-REACTIVE PROTEIN STAT 01/25/2022 Results f or 9:40 PM CDT this procedure are in the results section. PROCALCITONIN STAT 01/25/2022 Results for 9:40 PM CDT this procedure are in the results section. BASIC METABOLIC PANEL Timed 01/25/2022 Result s for 9:40 PM CDT this procedure are in the results section. GLUCOSE METER Timed 01/25/2022 Results for 9:35 PM CDT this procedure are in the results section. ARTERIAL BLOOD GAS YAHAIRA 01/25/2022 Results f or 8:13 PM CDT this procedure are in the results section. GLUCOSE METER Timed 01/25/2022 Results for 7:40 PM CDT this procedure are in the results section. [facility] DRAW Timed 01/25/2022 Results for ONLY 7:12 PM CDT this procedure are in the results section. ARTERIAL BLOOD GAS STAT 01/25/2022 Results f or 6:32 PM CDT this procedure are in the results section. GLUCOSE METER Timed 01/25/2022 Results for 6:17 PM CDT this procedure are in the results section. GLUCOSE METER Timed 01/25/2022 Results for 4:56 PM CDT this procedure are in the results section. BASIC METABOLIC PANEL Timed 01/25/2022 Result s for 3:21 PM CDT this procedure are in the results section. GLUCOSE METER Timed 01/25/2022 Results for 2:31 PM CDT this procedure are in the results section. GLUCOSE METER Timed 01/25/2022 Results for 1:26 PM CDT this procedure are in the results section. GLUCOSE METER Timed 01/25/2022 Results for 12:23 PM CDT this procedure are in the results section. BASIC METABOLIC PANEL Timed 01/25/2022 Result s for 11:01 AM CDT this procedure are in the results section. GLUCOSE METER Timed 01/25/2022 Results for 11:00 AM CDT this procedure are in the results section. GLUCOSE METER Timed 01/25/2022 Results for 10:04 AM CDT this procedure are in the results section. GLUCOSE METER Timed 01/25/2022 Results for 9:09 AM CDT this procedure are in the results section. XR CHEST 1 VIEW PORTABLE STAT 01/25/2022 Res ults for 8:28 AM CDT this procedure are in the results section. XR ABDOMEN 2 VIEWS PORTABLE STAT 01/25/2022 Results for 8:27 AM CDT this procedure are in the results section. GLUCOSE METER Timed 01/25/2022 Results for 7:52 AM CDT this procedure are in the results section. SCAN-CARDIAC STRIP 01/25/2022 7:28 AM CDT GLUCOSE METER Timed 01/25/2022 Results for 6:38 AM CDT this procedure are in the results section. EKG 12 LEAD STAT 01/25/2022 Results for 6:34 AM CDT this procedure are in the results section. CALCIUM IONIZED HOSPITAL DRAW STAT 01/25/2022 Results for ONLY 5:49 AM CDT this procedure are in the results section. GLUCOSE METER Timed 01/25/2022 Results for 5:30 AM CDT this procedure are in the results section. XR ERCP BILIARY ONLY Routine 01/25/2022 Results for 4:35 AM CDT this procedure are in the results section. GLUCOSE METER Timed 01/25/2022 Results for 4:23 AM CDT this procedure are in the results section. ENDOTRACHEAL TUBE Routine 01/25/2022 Results fo r 4:08 AM CDT this procedure are in the results section. ENDOTRACHEAL TUBE Routine 01/25/2022 Results fo r 4:08 AM CDT this procedure are in the results section. ENDOTRACHEAL TUBE Routine 01/25/2022 Results fo r 4:08 AM CDT this procedure are in the results section. ENDOSCOPIC RETROGRADE Class A 01/25/2022 CHOLANGITIS CHOLANGIOPANCREATOGRAPHY Emergency 3:31 AM CDT GLUCOSE METER Timed 01/25/2022 Results for 3:21 AM CDT this procedure are in the results section. ENDOSCOPY 01/25/2022 Results for 3:17 AM CDT this procedure are in the results section. TYPE & SCREEN Today 01/25/2022 Results for 2:48 AM CDT this procedure are in the results section. CBC WITH AUTO DIFFERENTIAL STAT 01/25/2022 R esults for 2:48 AM CDT this procedure are in the results section. COMP METABOLIC PANEL STAT 01/25/2022 Results for 2:48 AM CDT this procedure are in the results section. LACTATE VENOUS STAT 01/25/2022 Results for 2:48 AM CDT this procedure are in the results section. LIPASE STAT 01/25/2022 Results for 2:48 AM CDT this procedure are in the results section. BLOOD GAS,VENOUS STAT 01/25/2022 Results for 2:48 AM CDT this procedure are in the results section. BLOOD CULTURE STAT 01/25/2022 Results for 2:48 AM CDT this procedure are in the results section. PROTIME-INR STAT 01/25/2022 Results for 2:48 AM CDT this procedure are in the results section. HEPATIC FUNCTION PANEL STAT 01/25/2022 Resul ts for 2:48 AM CDT this procedure are in the results section. PHOSPHORUS STAT 01/25/2022 Results for 2:48 AM CDT this procedure are in the results section. MAGNESIUM STAT 01/25/2022 Results for 2:48 AM CDT this procedure are in the results section. CBC WITH AUTO DIFFERENTIAL STAT 01/25/2022 R esults for 2:48 AM CDT this procedure are in the results section. BLOOD CULTURE STAT 01/25/2022 Results for 2:47 AM CDT this procedure are in the results section. URINALYSIS MICROSCOPIC Timed 01/25/2022 Resul ts for 2:03 AM CDT this procedure are in the results section. CREATININE,RANDOM URINE Today 01/25/2022 Resu lts for 2:03 AM CDT this procedure are in the results section. SODIUM,RANDOM URINE Today 01/25/2022 Results for 2:03 AM CDT this procedure are in the results section. MRSA/SA PCR STAT 01/25/2022 Results for 2:03 AM CDT this procedure are in the results section. UA W/ SEDIMENT EXAM REFLEXED Today 01/25/2022 Results for PER CRITERIA 2:03 AM CDT this procedure are in the results section. GLUCOSE METER Timed 01/25/2022 Results for 1:47 AM CDT this procedure are in the results section. PATH TISSUE EXAM Routine 01/21/2022 Results for 3:55 PM CDT this procedure are in the results section. LAB TRACKING EVENT Routine 01/21/2022 3:43 PM CDT from Last 3 Months Results (ABNORMAL) GLUCOSE METER (02/05/2022 12:36 PM PROFESSOR OF FORESTRY)Only the most recent of112 resultswithin the time period is included. P athologist Signature GLUCOSE METER 109 (H) 65 - 100 02/05/2022 [facility] mg/dL 12:41 PM PROFESSOR OF FORESTRY LAB[facility]ATORY-[facility] Specimen Anatomical Collection Method Collection Time Receive d Time (Source) Location / / Volume Laterality Blood BLOOD SPECIMEN / 02/05/2022 12:36 022 Unknown PM PROFESSOR OF FORESTRY 12:40 PM PROFESSOR OF FORESTRY Phuc Shipley MD CHEMISTRY Performing Organization Address [facility] Phon e Number [facility] [employer] [address] [place] [id number] LABORATORY-CENTRAL 2000 LABORATORY Potassium AM (02/04/2022 11:08 AM PROFESSOR OF FORESTRY)Only the most recent of2 resultswithin the time period is included. athologist Signature POTASSIUM 4.0 3.5 - 5.0 02/04/2022 [facility] mmol/L 11:36 AM PROFESSOR OF FORESTRY LABORATORY-CEN[facility] AL LABORATORY Specimen Anatomical Collection Method / Collection Time Recei olga Time (Source) Location / Volume Laterality Blood BLOOD SPECIMEN / Non-Lab 02/04/2022 11:08 022 Unknown Venipuncture / AM [employer]OR OF FORESTRY 11:18 AM PROFESSOR OF FORESTRY Unknown Phuc Shipely MD CHEMISTRY Performing Organization Address [facility] e Number [facility] [employer] [address] [place] [id number] LABORATORY-CENTRAL 2000 LABORATORY (ABNORMAL) Creatinine AM (02/04/2022 11:08 AM PROFESSOR OF FORESTRY)Only the most recent of2 resultswithin the time period is included. athologist Signature CREATININE 1.47 (H) 0.57 - 02/04/2022 [facility] 1.11 mg/dL 11:41 AM PROFESSOR OF FORESTRY LAB[facility]ATORY-[facility] RAL LABORATORY eGFR 42 (L) >90 02/04/2022 [facility] mL/min/1.7 11:41 AM PROFESSOR OF FORESTRY LABORATORY-CENT 3m2 RAL LABORATORY Comment: As of 2021, eGFR is calcu lated by the CKD-EPI creatinine equation without race adjustment. eGFR can be inf luenced by muscle mass, exercise, and diet. The reported eGFR is an estimation only and is only applicable if the renal function is stable. Specimen Anatomical Collection Method / Collection Time Recei olga Time (Source) Location / Volume Laterality Blood BLOOD SPECIMEN / Non-Lab 02/04/2022 11:08 022 Unknown Venipuncture / AM [employer] FORE[employer] 11:18 AM PROF[employer]OR OF FORESTRY Unknown Phuc Shipley MD CHEMISTRY Performing Organization Address City/State/ZIP Code Phon e Number [facility] [employer] [address] [facility] [place] [address] LABORATORY-CENTRAL 1999 LABORATORY (ABNORMAL) Hemoglobin AM (02/03/2022 10:35 AM PROFESSOR OF FORESTRY)Only the most recent of3 resultswithin the time period is included. P athologist Signature HEMOGLOBIN 9.0 (L) 12.0 - 02/03/2022 [facility] 16.0 g/dL 11:02 AM PROFESSOR OF FORESTRY LAB[facility]ORY-[facility] R[facility] LABORATORY MCV 95 80 - 100 02/03/2022 [facility] fL 11:02 AM PROFESSOR OF FORESTRY LAB[facility]ORY[facility] R[facility] LABORATORY Specimen Anatomical Collection Method / Collection Time Recei olga Time (Source) Location / Volume Laterality Blood BLOOD SPECIMEN / Venipuncture / 02/03/2022 10:35 02/03 Unknown Unknown AM PROFESSOR OF FORESTRY 10:50 AM PROFESSOR OF FORESTRY Phuc Shipley MD HEMATOLOGY Performing Organization Address [facility]/ZIP Code Phon e Number [facility] [employer] [address] [place] [address] LABORATORY-CENTRAL 1999 LABORATORY (ABNORMAL) Basic metabolic panel AM (02/03/2022 10:35 AM PROFESSOR OF FORESTRY)Only the most recent of10 resultswithin the time period is included. [facility] gist Method Time Signature SODIUM 140 135 - 145 02/03/2022 [facility] mmol/L 11:21 AM PROFESSOR OF FORESTRY LAB[facility]ORY[facility] POTASSIUM 4.0 3.5 - 5.0 02/03/2022 [facility] mmol/L 11:21 AM PROF[employer]OR OF FORESTR[employer] [facility] CHLORIDE 108 98 - 110 02/03/2022 [facility] mmol/L 11:21 AM PROFESSOR OF FORESTR[employer] [facility] CO2,TOTAL 24 21 - 31 02/03/2022 [facility] mmol/L 11:21 AM PROFESSOR OF FORESTR[employer] [facility] ANION GAP 8 5 - 18 02/03/2022 [facility] 11:21 AM [employer] OF [employer] [facility] GLUCOSE 92 65 - 100 02/03/2022 [facility] mg/dL 11:21 AM PROFESSOR OF FORESTR[employer] [facility] CALCIUM 8.4 (L) 8.5 - 10.5 02/03/2022 [facility] mg/dL 11:21 AM PROF[employer] OF FORE[employer] [facility] BUN 13 8 - 25 02/03/2022 [facility] [employer] mg/dL 11:21 AM PROFESSOR OF FORESTRY [facility] CREATININE 1.35 (H) 0.57 - 02/03/2022 [facility] [employer] 1.11 mg/dL 11:21 AM PROFESSOR OF FORESTRY [facility] BUN/CREAT RATIO 10 10 - 20 02/03/2022 [facility] [employer] 11:21 AM PROFESSOR OF FORESTRY [facility] eGFR 46 (L) >90 02/03/2022 [facility] [employer] mL/min/1.7 11:21 AM PROFESSOR OF FORESTRY LABORATORY-[facility] 3m2 TRAL LABORATORY Comment: As of 2021, eGFR is calcu lated by the CKD-EPI creatinine equation without race adjustment. eGFR can be inf luenced by muscle mass, exercise, and diet. The reported eGFR is an estimation only and is only applicable if the renal function is stable. Specimen Anatomical Collection Method / Collection Time Recei olga Time (Source) Location / Volume Laterality Blood BLOOD SPECIMEN / Venipuncture / 02/03/2022 10:35 02/03 Unknown Unknown AM PROFESSOR OF FORESTRY 10:50 AM PROFESSOR OF FORESTRY Phuc Shipley MD CHEMISTRY Performing Organization Address City/State/ZIP Code Phon e Number [employer] [address] [place] [phone] LABORATORY-CENTRAL 2000 LABORATORY (ABNORMAL) CBC no diff AM (02/02/2022 8:27 AM PROFESSOR OF FORESTRY)Only the most recent of5 resultswithin the time period is included. [facility] gist Method Time Signature WHITE BLOOD 10.1 4.5 - 11.0 02/02/2022 [facility] [employer] [facility] [employer] COUNT thou/cu mm 9:21 AM PROFESSOR OF FORESTRY LAB[facility]ORY[facility] RED BLOOD COUNT 2.93 (L) 4.00 - 02/02/2022 [facility] [employer] 5.20 9:21 AM PROFESSOR OF FORESTRY LABORATORY-[facility] mil/cu mm TRAL LABORATORY HEMOGLOBIN 8.7 (L) 12.0 - 02/02/2022 [facility] [employer] 16.0 g/dL 9:21 AM PROFESSOR OF FORESTRY [facility] HEMATOCRIT 27.9 (L) 33.0 - 02/02/2022 [facility] [employer] 51.0 % 9:21 AM PROFESSOR OF FORESTRY [facility] MCV 95 80 - 100 02/02/2022 [facility] fL 9:21 AM PROFESSOR OF FORESTRY [facility] MCH 29.7 26.0 - 02/02/2022 [facility] 34.0 pg 9:21 AM PROFESSOR OF FORESTRY [facility] MCHC 31.2 (L) 32.0 - 02/02/2022 [facility] 36.0 g/dL 9:21 AM PROFESSOR OF FORESTRY [facility] RDW 14.0 11.5 - 02/02/2022 [facility] 15.5 % 9:21 AM PROFESSOR OF FORESTRY [facility] PLATELET COUNT 497 (H) 140 - 440 02/02/2022 [facility] thou/cu mm 9:21 AM PROFESSOR OF FORESTRY [facility] MPV 10.0 6.5 - 11.0 02/02/2022 [facility] fL 9:21 AM PROFESSOR OF FORESTRY [facility] NRBC 0.0 % 02/02/2022 [facility] 9:21 AM PROFESSOR OF FORESTRY LAB[facility] TR[facility] LABORATORY ABS NRBC 0.0 thou /cu 02/02/2022 [facility] [employer] mm 9:21 AM PROFESSOR OF FORESTRY LAB[facility] LAB[facility]ORY Specimen Anatomical Collection Method Collection Time Receive d Time (Source) Location / / Volume Laterality Blood BLOOD SPECIMEN / Butterfly / 02/02/2022 8:27 AM 02/02 9:01 Unknown Unknown PROFESSOR OF FORESTRY AM PROFESSOR OF FORESTRY Phuc Shipley MD HEMATOLOGY Performing Organization Address City/State/ZIP Code Phon e Number [facility] [address] [place] [address] LABORATORY-CENTRAL 2000 LABORATORY (ABNORMAL) Hepatic function panel AM (02/02/2022 8:26 AM PROFESSOR OF FORESTRY)Only the most recent of6 resultswithin the time period is included. [facility] gist Method Time Signature ALBUMIN 2.6 (L) 3.5 - 5.2 02/02/2022 [facility] g/dL 9:52 AM PROFESSOR OF FORESTRY LAB[facility]ATORY[facility] TR[facility] LABORATORY PROTEIN,TOTAL 5.3 (L) 6.0 - 8.0 02/02/2022 [facility] [employer] g/dL 9:52 AM PROFESSOR OF FORESTRY LAB[facility] LAB[facility]ORY GLOBULIN 2.7 2.0 - 3.7 02/02/2022 [facility] [employer] g/dL 9:52 AM PROFESSOR OF FORESTRY LAB[facility] LAB[facility] A/G RATIO 1.0 1.0 - 2.0 02/02/2022 [facility] 9:52 AM PROFESSOR OF FORESTRY LAB[facility]ATORY[facility] TR[facility] LABORATORY BILIRUBIN,TOTAL 0.4 0.2 - 1.2 02/02/2022 [facility] mg/dL 9:52 AM PROFESSOR OF FORESTRY LAB[facility]ATORY[facility] TRAL LABORATORY BILIRUBIN,DIRECT 0.3 0.1 - 0.5 02/02/2022 [facility] mg/dL 9:52 AM PROFESSOR OF FORESTRY LAB[facility]ORY[facility] TR[facility] LABORATORY BILIRUBIN,INDIRE 0.1 (L) 0.2 - 0.8 02/02/[address] [facility] [address] mg/dL 9:52 AM PROFESSOR OF FORESTRY LAB[facility]ATORY[facility] TRAL LABORATORY ALK PHOSPHATASE 95 50 - 136 02/02/2022 [facility] IU/L 9:52 AM PROFESSOR OF FORESTRY [facility] ALT (SGPT) 24 8 - 45 02/02/2022 [facility] IU/L 9:52 AM PROFESSOR OF FORESTRY LAB[facility] LAB[facility] AST (SGOT) 13 2 - 40 02/02/2022 [facility] IU/L 9:52 AM PROFESSOR OF FORESTRY LAB[facility] LAB[facility]ORY Specimen Anatomical Collection Method Collection Time Receive d Time (Source) Location / / Volume Laterality Blood BLOOD SPECIMEN / Butterfly / 02/02/2022 8:26 AM 02/02 9:01 Unknown Unknown PROFESSOR OF FORESTRY AM PROFESSOR OF FORESTRY Phuc Shipley MD CHEMISTRY Performing Organization Address City/State/ZIP Code [facility]on [facility] Number [facility] [address] [place] [address] LABORATORY-CENTRAL 2000 LABORATORY XR PERCUTANEOUS TUBE REMOVAL (02/01/2022 4:34 PM PROFESSOR OF FORESTRY) Anatomical Region Laterality Modality Abdomen Digital Radiography Specimen (Source) Anatomical Collection Method Collection Time Re ceived Time Location / / Volume Laterality 02/01/2022 4:37 PM PROFESSOR OF FORESTRY Impressions 02/01/2022 4:37 PM PROFESSOR OF FORESTRY Successful removal right upper quadrant percutaneous drain. Dictated by Shayan Duffy MD @ Nov ??7 2021 ??4:37PM (Electronically Signed) ?? Narrative 02/01/2022 4:37 PM PROFESSOR OF FORESTRY For Patients: ??As a result of the Cures Act, medical imaging exams and procedure reports are released immediately into your electronic medical record. ??You may view this report before you r referring provider. ??If you have ques tions, please contact your health care provider. HISTORY: Percutaneous drain removal. TECHNIQUE: Pigtail drainage catheter in the right u pper quadrant was identified. Tube was cut to release the pigtail and catheter was removed in its entirety without apparent complication. Dressing was applied. Procedure Note Shayan Duffy MD - 02/01/2022 For Patients: As a result of the Cures Act, medical imaging exams and procedure reports are released immediately into your electronic medical record. You may view this report before your referring provider. If you have questions, please contact [facility] health care provider. HISTORY: Percutaneous drain removal. TECHNIQUE: Pigtail drainage catheter in the right u pper quadrant was identified. Tube was cut to release the pigtail and catheter was removed in its entirety without apparent complication. Dressing was applied. IMPRESSION: Successful removal right upper quadrant percutaneous drain. Dictated by Shayan Duffy MD @ Feb 01 022 4:37PM (Electronically Signed) Davina Bliss NP FLUOROSCOPY CT ABDOMEN PELVIS WO (02/01/2022 11:51 AM PROFESSOR OF FORESTRY)Only the most recent of2 results within the time period is included. Anatomical Region Laterality Modality Abdomen, Pelvis, AORTA, LIVER, SPLEEN Co mputed Tomography Specimen (Source) Anatomical Collection Method Collection Time Re ceived Time Location / / Volume Laterality 02/01/2022 3:05 PM PROFESSOR OF FORESTRY Impressions 02/01/2022 3:05 PM PROFESSOR OF FORESTRY 1. Status post cholecystectomy. 2. Increased free air in the gallbladder fossa and tracking along catheter could be due to leak. 3. Moderate bilateral pleural effusions and bibasilar atelectasis/consolidation, increased. 4. Interval placement of percutaneous dr vicente anterior to the liver with resolution of associated fluid collection. Please note that all CT scans at this [facility] use dose modulation, iterative reconstruction, and/or weight-based dosing when appropriate to reduce radiation dose to as low as reasonably achievable. Dictated by Nikita Ortega MD @ 2 3:05:35 PM (Electronically Signed) Narrative 02/01/2022 3:05 PM PROFESSOR OF FORESTRY For Patients: ??As a result of the Cures Act, medical imaging exams and procedure report s are released immediately into your [facility] medical record. ??You may view this report before your referring provider. ??If you have questions, please contact your health care provider. INDICATION: Acute abdominal pain. COMPARISON: 01/28/2022. TECHNIQUE: CT abdomen pelvis without contrast. FINDINGS: Moderate bilateral pleural effusions are increased from prior. Bibasilar atelectasis/consolidation. Noncontrast evaluation of the liver, spleen, pancreas and adrenal glands are unremarkable. Post cholecystectomy. Percutaneous drain age catheter with tip anterior inferior to liver, unchanged in position. Additional percutaneous drainage catheter anterior to the liver with resolution of associ ated fluid collection. Free air in the g allbladder fossa is increased from prior. Free air tracks along the catheter as well in the right upper quadrant anterior to the stomach (series 2, image 70). Cat heter in the duodenum is again noted. Ri ght kidney is absent. No left-sided hydronephrosis or obstructing renal calculus. Abdominal aorta is normal in caliber. Mi ld ascites. Anasarca. Small focus of gas in the bladder could be from recent catheterization. No bowel obstruction. No enlarged abdominal or pelvic lymph nodes. Degenerative changes in the spine. Procedure Note Nikita Ortega MD - 02/01/2022Fo rmatting of this note might be different from the original. For Patients: As a result of the ntury Cures Act, medical imaging exams and procedure reports are released immediately into your electronic medical record. You may view this report before your referring provider. If you have questions, please contact yo health care provider. INDICATION: Acute abdominal pain. COMPARISON: 01/28/2022. TECHNIQUE: CT abdomen pelvis without contrast. FINDINGS: Moderate bilateral pleural effusions are increased from prior. Bibasilar atelectasis/consolidation. Noncontrast evaluation of the liver, spleen, pancreas and adrenal glands are unremarkable. Post cholecystectomy. Percutaneous drain age catheter with tip anterior inferior to liver, unchanged in position. Additional percutaneous drainage catheter anterior to the liver with resolution of associated fluid collection. Free air in the gallbladder fossa is increased from prior. Free air tracks along the catheter as well in the right upper quadrant anterior to the stomach (series 2, image 70). Catheter in the duodenum is again noted. Right kidney is absent. No left-sided hydronephrosis or obstructing renal calculus. Abdominal aorta is normal in caliber. Mi ld ascites. Anasarca. Small focus of gas in the bladder could be from recent catheterization. No bowel obstruction. No enlarged abdominal or pelvic lymph nodes. Degenerative changes in the spine. IMPRESSION: 1. Status post cholecystectomy. 2. Increased free air in the gallbladder fossa and tracking along catheter could be due to leak. 3. Moderate bilateral pleural effusions and bibasilar atelectasis/consolidation, increased. 4. Interval placement of percutaneous dr vicente anterior to the liver with resolution of associated fluid collection. Please note that all CT scans at this [facility] use dose modulation, iterative reconstruction, and/or weight-based dosing when appropriate to reduce radiation dose to as low as reasonably achievable. Dictated by Nikita Ortega MD @ 2 3:05:35 PM (Electronically Signed) Mickey Curiel MD CT ECHO COMPLETE W CONTRAST (01/31/2022 1:02 PM PROFESSOR OF FORESTRY) athologist Signature AORTIC VALVE 11 mmHg MEAN PG EJECTION 77 % FRACTION PEAK TR 3.8 m/s VELOCITY LVEDD 4.4 cm EJECTION > 75% FRACTION Anatomical Region Laterality Modality HEART Ultrasound Specimen (Source) Anatomical Collection Method Collection Time Re ceived Time Location / / Volume Laterality 01/31/2022 12:09 PM PROFESSOR OF FORESTRY Narrative 01/31/2022 2:56 PM PROFESSOR OF FORESTRY ECHOCARDIOGRAM AMAURY CARBAJAL ? Accessi on#: ?? [id number] : ?1965 56 years Study Date: ?? 01/31/2022 12:09:30 PM Gender: F ?BP: ? 183/74 mmHg Height: 180.00 cm ?BSA: ?2.45 m? ?? Weight: 129.00 kg ?Tech: ? EF ? Referring MD: ELIAS WARREN Site: ? [facility] Reading Location: [facility] IP Procedure: 2D w/ Contrast, Color Doppler and Spectral Doppler. Indication for study: CHF Cardiac Rhythm: Normal sinus.Study quali ty: Fair. Final Impressions: 1. Normal left ventricular size, normal wall thickness, hyperdynamic global systolic function, calculated EF of 77 %. 2. Right ventricular cavity size is nor mal, global systolic RV function is normal. 3. No pericardial effusion. 4. Moderately increased estimated pulmo nary pressures by tricuspid regurgitation velocity and right atrial pressure (57 mmHg plus RAP). 5. No significant valve disease detecte d. Chamber Sizes and Function Normal left ventricular size, normal wal l thickness, hyperdynamic global systolic function, calculated EF of 77 %. No definite resting regional wall motion abnormality seen. Left atrial size is normal. Right ventricular cavity size is normal, global systolic RV function is normal. The right atrium is normal. The pulmonary artery is not well visualized. The sinus of Valsalva is normal sized. The ascending aorta is normal sized. Valves, RV Pressures and Diastolic Funct ion The aortic valve is normal in structure and trileaflet, no stenosis and no regurgitation. The mitral valve is normal in structure, trace mitral regurgitation. Indeterminate pattern of LV diastolic filli ng. The tricuspid valve is normal in str ucture. Tricuspid regurgitation is mild regurgitation. The tricuspid regurgitant velocity is 3.8 m/s, the estimated right ventricular systolic pressure is 57 mmHg plus right atrial pressure. There is mo derately increased estimated pulmonary pressure by tricuspid regurgitation velocity and right atrial pressure. The pulmonic valve is not well visualized. No pulmonary regurgitation. Masses, Effusion, Shunts There is no pericardial effusion. The in ferior vena cava is normal sized, respiratory size variation greater than 50%. No left to right shunting was detected by limited color flow Doppler interrogation of the interatrial septum. MEASUREMENTS AND CALCULATIONS 2-D Measurements and LV Function: LVID (d) 4.4 cm Planimetered EF 77 % LVID (s) 3.2 cm LV FS% (2D) ? 27 % IVS (d) ??0.9 cm LVOT diameter ?? 2.0 cm LVPW (d) 0.8 cm HR ?6 5 bpm Ao Sinus 3.3 cm Asc Ao ?? 3.5 cm LA ? 3.5 cm Diastology: Mitral ?Tissue Doppler E Peak 1.2 m/s ??e', Septum ? 0.09 m /s A Peak 0.8 m/s ??e', Lateral ?0.11 m /s E/A ?1.5 ?E/e' Average ?? 12. 13 DT ? 239 msec Aortic Valve: Vmax ? 2.4 m/s ??GAURAV (V) ?? 1.78 cm? ?? VTI ?0.55 m ?? GAURAV (I) ?? 1.98 cm? ?? LVOT V max 1.3 m/s ??Max PG ?22 mmHg LVOT VTI ?? 0.35 m ?? Mean PG ?? 11 mmHg SV ? 109 ml ?? Dim Index 0.63 SV index ?? 45 ml/m? ?? CO ?7.1 l/min ?CI ?2.9 l/min/m? ?? Mitral Valve: MVA ?3.2 cm? ?? MV P 1/2 69 msec Tricuspid Valve and estimated PA pressur es: TR Vmax 3.8 m/s TAPSE 3.0 cm TR maxG 57 mmHg Pulmonic Valve: PV Vmax 1.4 m/s Contrast documentation: 2 ml diluted Def inity, lot #[id number], was administered peripherally to enhance visualization of all left ventricular segments. . This study was interpreted by an [facility] redited facility. ??Final ?? Procedure Note Dickson Evans MD - 01/31/2022Formatt ing of this note might be different from the original. ECHOCARDIOGRAM AMAURY CARBAJAL : 1965 56 years Study Date: 01/31 12:09:30 PM Gender: F BP: 183/74 mmHg Height: 180.00 cm BSA: 2.45 m? ?? Weight: 129.00 kg Tech: EF Referring MD: ELIAS WARREN Site: [facility] Reading Location: W IP Procedure: 2D w/ Contrast, Color Doppler and Spectral Doppler. Indication for study: CHF Cardiac Rhythm: Normal sinus.Study quali ty: Fair. Final Impressions: 1. Normal left ventricular size, normal wall thickness, hyperdynamic global systolic function, calculated EF of 77 %. 2. Right ventricular cavity size is nor mal, global systolic RV function is normal. 3. No pericardial effusion. 4. Moderately increased estimated pulmo nary pressures by tricuspid regurgitation velocity and right atrial pressure (57 mmHg plus RAP). 5. No significant valve disease detecte d. Chamber Sizes and Function Normal left ventricular size, normal wal l thickness, hyperdynamic global systolic function, calculated EF of 77 %. No definite resting regional wall motion abnormality seen. Left atrial size is normal. Right ventricular cavity size is normal, globa l systolic RV function is normal. The right atrium is normal. The pulmonary artery is not well visualized. The sinus of Valsalva is normal sized. The ascending aorta is normal sized. Valves, RV Pressures and Diastolic Funct ion The aortic valve is normal in structure and trileaflet, no stenosis and no regurgitation. The mitral valve is normal in structure, trace mitral regurgitation. Indeterminate pattern of LV diastolic filling. The tricuspid valve is normal in structure. Tricuspid regurgitation is mild regurgitation. The tricuspid regurgitant velocity is 3.8 m/s, the estimated right ventricular systolic pressure is 57 mmHg plus right atrial pressure. There is moderately increased estimated pulmonary pressure by tricuspid regurgitation velocity and right atrial pressure. The pulmonic valve is not well visualized. No pulmonary regurgitation. Masses, Effusion, Shunts There is no pericardial effusion. The in ferior vena cava is normal sized, respiratory size variation greater than 50%. No left to right shunting was detected by limited color flow Doppler interrogation of the interatrial septum. MEASUREMENTS AND CALCULATIONS 2-D Measurements and LV Function: LVID (d) 4.4 cm Planimetered EF 77 % LVID (s) 3.2 cm LV FS% (2D) 27 % IVS (d) 0.9 cm LVOT diameter 2.0 cm LVPW (d) 0.8 cm HR 65 bpm Ao Sinus 3.3 cm Asc Ao 3.5 cm LA 3.5 cm Diastology: Mitral Tissue Doppler E Peak 1.2 m/s e', Septum 0.09 m/s A Peak 0.8 m/s e', Lateral 0.11 m/s E/A 1.5 E/e' Average 12.13 DT 239 msec Aortic Valve: Vmax 2.4 m/s GAURAV (V) 1.78 cm? ?? VTI 0.55 m GAURAV (I) 1.98 cm? ?? LVOT V max 1.3 m/s Max PG 22 mmHg LVOT VTI 0.35 m Mean PG 11 mmHg SV 109 ml Dim Index 0.63 SV index 45 ml/m? ?? CO 7.1 l/min CI 2.9 l/min/m? ?? Mitral Valve: MVA 3.2 cm? ?? MV P 1/2 69 msec Tricuspid Valve and estimated PA pressur es: TR Vmax 3.8 m/s TAPSE 3.0 cm TR maxG 57 mmHg Pulmonic Valve: PV Vmax 1.4 m/s Contrast documentation: 2 ml diluted Def inity, lot #[id number], was administered peripherally to enhance visualization of all left ventricular segments. . This study was interpreted by an [facility] redited facility. Final Elias Warren MD ECHO ORD (ABNORMAL) WBC AM (01/31/2022 10:19 AM PROFESSOR OF FORESTRY)Only the most recent of2 results within the time period is included. Analysis Performed At Patho logist Time Signature WHITE BLOOD 14.7 (H) 4.5 - 11.0 01/31/2022 [facility] COUNT thou/cu mm 10:37 AM PROFESSOR OF FORESTRY LAB[facility] NRBC 0.0 % 01/31/2022 [facility] 10:37 AM PROFESSOR OF FORESTRY [facility] ABS NRBC 0.0 thou /cu 01/31/2022 [facility] mm 10:37 AM PROFESSOR OF FORESTRY [facility] Specimen Anatomical Collection Method / Collection Time Recei olga Time (Source) Location / Volume Laterality Blood BLOOD SPECIMEN / Venipuncture / 01/31/2022 10:19 01/31 Unknown Unknown AM PROFESSOR OF FORESTRY 10:31 AM PROFESSOR OF FORESTRY Elias Warren MD HEMATOLOGY Performing Organization Address City/State/ZIP Code Phon e Number [facility] [address] [place] [address] LABORATORY-CENTRAL 2000 LABORATORY XR CHEST 1 VIEW PORTABLE (01/30/2022 1:18 PM CDT)Only the most recent of2 resultswithin the time period is included. Anatomical Region Laterality Modality HEART, THORAX, CHEST Digital Radiography Specimen (Source) Anatomical Collection Method Collection Time Re ceived Time Location / / Volume Laterality 01/30/2022 2:07 PM CDT Impressions 01/30/2022 2:07 PM CDT Findings suggest interstitial pulmonary edema. Dictated by Brian Diaz MD @ Nov ??5 ??2:07PM (Electronically Signed) ?? Narrative 01/30/2022 2:07 PM CDT For Patients: ??As a result of the Cures Act, medical imaging exams and procedure report s are released immediately into your [facility] record. ??You may view this report before your referring provider. ??If you have questions, please contact your health care provider. HISTORY: Shortness of breath. COMPARISON: 01/25/2022. TECHNIQUE: Chest one-view portable semi upright. FINDINGS: Interstitial type opacities are new from previous. Relative sparing of the lung apices. There is no pneumothorax or deep sulcus sign. Central airway is normal. Osseous structures are intact. Right posterior rib fractures. Procedure Note Brian Diaz MD - 01/30/2022Forma tting of this note might be different from the original. For Patients: As a result of the Cures Act, medical imaging exams and procedure reports are released immediately into your electronic medical record. You may view this report before your referring provider. If you have questions, please contact yo health care provider. HISTORY: Shortness of breath. COMPARISON: 01/25/2022. TECHNIQUE: Chest one-view portable semi upright. FINDINGS: Interstitial type opacities are new from previous. Relative sparing of the lung apices. There is no pneumothorax or deep sulcus sign. Central airway is normal. Osseous structures are intact. Right posterior rib fractures. IMPRESSION: Findings suggest interstitial pulmonary edema. Dictated by Brian Diaz MD @ Jan 30 2022 2:07PM (Electronically Signed) Mickey Curiel MD GENERAL IMAGING (ABNORMAL) BLOOD GAS,VENOUS (01/30/2022 1:16 PM CDT)Only the most recent of3 resultswithin the time period is included. [facility] gist Method Time Signature PH, VENOUS 7.45 (H) 7.32 - 7.43 01/30/2022 [facility] 1:30 PM CDT LAB[facility]ATORY[facility] PCO2, VENOUS 32 (L) 41 - 51 01/30/2022 [facility] mmHg 1:30 PM CDT LAB[facility] PO2, VENOUS 39 35 - 40 01/30/2022 [facility] mmHg 1:30 PM CDT [facility] HCO3,VENOUS 22 22 - 29 01/30/2022 [facility] mmol/L 1:30 PM CDT [facility] BASE EXCESS, -1.0 -2.0 - 3.0 01/30/2022 [facility] VENOUS, POCT 1:30 PM CDT [facility] O2 SATURATION, 77 (H) 70 - 75 % 01/30/2022 [facility] VENOUS 1:30 PM CDT [facility] PATIENT 37.0 Degrees C 01/30/2022 [facility] TEMPERATURE 1:30 PM CDT [facility] Specimen Anatomical Collection Method / Collection Time Recei olga Time (Source) Location / Volume Laterality Blood VENOUS BLOOD Venipuncture / 01/30/2022 1:16 01/30/2022 1:23 SPECIMEN / Unknown Unknown PM CDT PM CDT Mickey Curiel MD CHEMISTRY Performing Organization Address City/State/ZIP Code Phon e Number [facility] [address] [place] [address] LABORATORY-CENTRAL 1999 LABORATORY (ABNORMAL) BILIRUBIN,TOTAL/DIRECT (01/30/2022 1:14 PM CDT) athologist Signature BILIRUBIN,TOTA 0.8 0.2 - 1.2 01/30/2022 [facility] L mg/dL 1:52 PM CDT LAB[facility] BILIRUBIN,DIRE 0.6 (H) 0.1 - 0.5 01/30/2022 [facility] CT mg/dL 1:52 PM CDT LAB[facility]AT[facility] BILIRUBIN,EBONI 0.2 0.2 - 0.8 01/30/2022 [facility] RECT mg/dL 1:52 PM CDT [facility] Specimen Anatomical Collection Method / Collection Time Recei olga Time (Source) Location / Volume Laterality Blood BLOOD SPECIMEN / Venipuncture / 01/30/2022 1:14 2021 1:23 Unknown Unknown PM CDT PM CDT Mickey Curiel MD CHEMISTRY Performing Organization Address City/[facility] Phon e Number [facility] [address] [place] [id number] LABORATORY-CENTRAL 2000 LABORATORY AMMONIA (01/30/2022 1:14 PM CDT)Only the most recent of2 resultswithin the time period is included. athologist Signature AMMONIA 26 11 - 35 01/30/2022 [facility] umol/L 2:23 PM CDT LABORATORY-CEN[facility] AL LABORATORY Comment: 1. ??Sulfasalazine and its metabolite Pereira lfapyridine at therapeutic concentrations may lead to falsely low results. 2. ??Temozolomide and its metabolite MTI C may lead to falsely elevated results, and its metabolite AIC may lead to falsely low results. Specimen Anatomical Collection Method / Collection Time Recei olga Time (Source) Location / Volume Laterality Blood BLOOD SPECIMEN / Venipuncture / 01/30/2022 1:14 2021 1:23 Unknown Unknown PM CDT PM CDT Mickey Curiel MD CHEMISTRY Performing Organization Address City/[facility] Phon e Number [facility] [address] [place] [id number] LABORATORY-CENTRAL 1999 LABORATORY (ABNORMAL) ALT AM (01/30/2022 4:01 AM CDT) P athologist Signature ALT (SGPT) 52 (H) 8 - 45 IU/L 01/30/2022 [facility] 5:33 AM CDT LABORATORY-CENT RAL LABORATORY Specimen Anatomical Collection Method Collection Time Receive d Time (Source) Location / / Volume Laterality Blood BLOOD SPECIMEN / Butterfly / 01/30/2022 4:01 AM 01/30 4:33 Unknown Unknown CDT AM CDT Elias Warren MD CHEMISTRY Performing Organization Address [facility]/ZIP Code Phon e Number [facility] [address] [place] [address] LABORATORY-CENTRAL 2000 LABORATORY (ABNORMAL) AST AM (01/30/2022 4:01 AM CDT) athologist Signature AST (SGOT) 52 (H) 2 - 40 IU/L 01/30/2022 [facility] 5:33 AM CD[facility] Specimen Anatomical Collection Method Collection Time Receive d Time (Source) Location / / Volume Laterality Blood BLOOD SPECIMEN / Butterfly / 01/30/2022 4:01 AM 01/30 4:33 Unknown Unknown CDT AM CDT Elias Warren MD CHEMISTRY Performing Organization Address City/[facility]/ZIP Code Phon e Number [facility] [address] [place] [address] LABORATORY-CENTRAL 2000 LABORATORY SCAN-CARDIAC STRIP (01/28/2022 5:30 PM CDT) Narrative This result has an attachment that is no t available. Scanner OTHER (ABNORMAL) BODY FLUID CULTURE,STAIN (AEROBIC) (01/28/2022 4:16 PM CDT) [facility] gist Method Time Signature CULTURE RESULT (A) 02/03/2022 [facility] 9:24 AM PROFESSOR OF FORESTRY [facility] CULTURE 2+ Klebsiella 02/03/2022 [facility] oxytoca 9:24 AM PROFESSOR OF FORESTRY [facility] GRAM STAIN 2+ RBCs (A) 02/03/2022 [facility] 9:24 AM PROFESSOR OF FORESTRY LAB[facility]ORY[facility] GRAM STAIN 3+ PMNs (A) 02/03/2022 [facility] 9:24 AM PROFESSOR OF FORESTRY LAB[facility] GRAM STAIN No Epithelial 02/03/2022 [facility] cells (A) 9:24 AM PROFESSOR OF FORESTRY LAB[facility] GRAM STAIN 2+ Gram 02/03/2022 [facility] Negative 9:24 AM PROFESSOR OF FORESTRY LABORATORY-[facility] Bacilli (A) TRAL LABORATORY Specimen Anatomical Collection Method Collection Time Receive d Time (Source) Location / / Volume Laterality Body Fluid Non-Blood / 01/28/2022 4:16 PM 4:16 (Peritoneal) Unknown CDT PM CDT Organism Antibiotic Method Susceptibility Klebsiella oxytoca TRIMETHOPRIM/SULF <=1/19: S Klebsiella oxytoca AMPICILLIN >=32: R Klebsiella oxytoca CEFAZOLIN 8: R Klebsiella oxytoca GENTAMICIN <=1: S Klebsiella oxytoca CEFTRIAXONE <=1: S Klebsiella oxytoca CEFTAZIDIME <=1: S Klebsiella oxytoca LEVOFLOXACIN <=0.12: S Klebsiella oxytoca CIPROFLOXACIN <=0.25: S Klebsiella oxytoca PIPERACILLIN/TAZO <=4: S Klebsiella oxytoca AMPICILLIN/SULBACTAM 16: I Klebsiella oxytoca CEFEPIME <=1: S Klebsiella oxytoca TOBRAMYCIN <=1: S Klebsiella oxytoca MEROPENEM <=0.25: S Elias Warren MD MICROBIOLOGY Performing Organization Address City/State/ZIP Code Phon e Number [facility] [address] [place] [address] LABORATORY-CENTRAL 1999 LABORATORY (ABNORMAL) ANAEROBIC CULTURE (01/28/2022 4:16 PM CDT) Analysis Performed At [facility] logist Time Signature CULTURE RESULT (A) 02/03/2022 [facility] 8:12 AM PROFESSOR OF FORESTRY LAB[facility]ATORY-[facility] CULTURE 1+ Gram 02/03/2022 [facility] negative 8:12 AM PROFESSOR OF FORESTRY LABORATORY-[facility] bacilli TRAL LABORATORY Comment: Non-viable for identification Specimen Anatomical Collection Method Collection Time Receive d Time (Source) Location / / Volume Laterality Other SPECIMEN FROM Non-Blood / 01/28/2022 4:16 PM 01/29/20 22 4:16 ABSCESS / Unknown Unknown CDT PM CDT Elias Warren MD MICROBIOLOGY Performing Organization Address City/State/ZIP Code Phon e Number [facility] [address] [place] [address] LABORATORY-CENTRAL [address] DRAIN PERITONEAL RETROPERITONEAL INC GUIDE (01/28/2022 3:32 PM CDT) Anatomical Region Laterality Modality Abdomen Computed Tomography, Other Specimen (Source) Anatomical Collection Method Collection Time Re ceived Time Location / / Volume Laterality 01/28/2022 3:57 PM CDT Impressions 01/28/2022 3:57 PM CDT 1. Status post CT-guided placement of 14-Icelandic pigtail catheter into 9 x 4 cm right upper quadrant fluid collection. 50 cc of cloudy fluid obtained and sent to the lab. 2. No immediate complications. 3. Moderate sedation planned and used. Please note that all CT scans at this [facility] use dose modulation, iterative reconstruction, and/or weight-based dosing when appropriate to reduce radiation dose to as low as reasonably achievable. Dictated by Curtis Black MD @ 01/28/2022 3:57:30 PM (Electronically Signed) Narrative 01/28/2022 3:57 PM CDT For Patients: ??As a result of the Century Cures Act, medical imaging exams and procedure report s are released immediately into your [facility] medical record. ??You may view this report before your referring provider. ??If you have questions, please contact your health care provider. INDICATION: 6 x 4 cm right upper quadrant fluid jaron ection. Abdominal pain post cholecystectomy. CT-guided drain placement requested. TECHNIQUE: CT-guided abdominal drain placement. COMPARISON: CT of the abdomen and pelvis 01/26/2022. FINDINGS/DESCRIPTION OF PROCEDURE: In my discussion, prior to the signing o f the consent, I reviewed the procedure, benefits, risks, long-term effects, treatment options, possible use of pain or sedation medications, and how the procedur e will meet the treatment goal with the patient`s . He was given ample time to ask questions. All questions were answered. ?? MEDICATION GIVEN: VERSED 2 mg IV and FEN TANYL 200 mcg IV. Lidocaine for local anesthesia. ?? MODERATE SEDATION: ??Under physician sup ervision, midazolam and fentanyl were administered intravenously for moderate sedation. Pulse oximetry, heart rate, and blood pressure were continuously monitored by a trained, dedicated nurse. The [facility] who performed the procedure provided 34 minutes of intra-service time with the patient. The patient was placed in supine positio n and localizing images were obtained. Anterior approach was chosen. The site was marked, and then prepped and draped in sterile fashion. Beulah protocol was followed. TIME-OU T conducted just prior to starting procedure confirmed patient identity, site/side, procedure, patient position, and availability of correct equipment. ??Pause for cause was performed. 10 cc 1 percent lidocaine was used for s uperficial and deeper anesthesia. Under CT fluoroscopic guidance, a Yueh needle was advanced into the fluid collection. Through this, an 035 wire was advanced. Th e tract was dilated with 10 and 14-Frenc h dilators. Over the wire, a 14-Icelandic pigtail catheter was placed with position verified by CT. The catheter was locked and fixed in position. The catheter was a ttached to a Norbert-Close drainage bag afte r 50 cc of cloudy fluid was obtained and sent to the lab. No immediate complications. EBL less than 10 cc. Procedure Note Curtis Black MD - 01/28/2022Fo rmatting of this note might be different from the original. For Patients: As a result of the ntury Cures Act, medical imaging exams and procedure reports are released immediately into your electronic medical record. You may view this report before your referring provider. If you have questions, please contact [facility] provider. INDICATION: 6 x 4 cm right upper quadrant fluid jaron ection. Abdominal pain post cholecystectomy. CT-guided drain placement requested. TECHNIQUE: CT-guided abdominal drain placement. COMPARISON: CT of the abdomen and pelvis 01/26/2022. FINDINGS/DESCRIPTION OF PROCEDURE: In my discussion, prior to the signing o f the consent, I reviewed the procedure, benefits, risks, long-term effects, treatment options, possible use of pain or sedation medications, and how the procedure will meet the treatment goal with the patient`s adela d. He was given ample time to ask questions. All questions were answered. MEDICATION GIVEN: VERSED 2 mg IV and FEN TANYL 200 mcg IV. Lidocaine for local anesthesia. MODERATE SEDATION: Under physician super vision, midazolam and fentanyl were administered intravenously for moderate sedation. Pulse oximetry, heart rate, and blood pressure were continuously monitored by a trained, dedicated nurse. The physician who perfo rmed the procedure provided 34 minutes of intra-service time with the patient. The patient was placed in supine positio n and localizing images were obtained. Anterior approach was chosen. The site was marked, and then prepped and draped in sterile fashion. Beulah protocol was followed. TIME-OU T conducted just prior to starting procedure confirmed patient identity, site/side, procedure, patient position, and availability of correct equipment. Pause for cause was performed. 10 cc 1 percent lidocaine was used for s uperficial and deeper anesthesia. Under CT fluoroscopic guidance, a Yueh needle was advanced into the fluid collection. Through this, an 035 wire was advanced. The tract was dilated with 10 and 14-Icelandic dilators. Over the wire, a 14-Icelandic pigtail catheter was placed with position verified by CT. The catheter was locked and fixed in position. The catheter was attached to a Norbert-Close drainage bag after 50 cc of cloudy fluid was obta ined and sent to the lab. No immediate complications. EBL less than 10 cc. IMPRESSION: 1. Status post CT-guided placement of 14 -Icelandic pigtail catheter into 9 x 4 cm right upper quadrant fluid collection. 50 cc of cloudy fluid obtained and sent to the lab. 2. No immediate complications. 3. Moderate sedation planned and used. Please note that all CT scans at this [facility] use dose modulation, iterative reconstruction, and/or weight-based dosing when appropriate to reduce radiation dose to as low as reasonably achievable. Dictated by Curtis Black MD @ 01/28/2022 3:57:30 PM (Electronically Signed) Mickey Curiel MD CT SCAN-CARDIAC STRIP (01/28/2022 9:21 AM CDT) Narrative This result has an attachment that is no t available. Scanner OTHER MAGNESIUM (01/28/2022 9:03 AM CDT)Only the most recent of2 resultswithin the time period is included. P athologist Signature MAGNESIUM 1.7 1.6 - 2.6 01/28/2022 [facility] mg/dL 9:55 AM CDT LABORATORY-[facility]ENTR AL LABORATORY Specimen Anatomical Collection Method / Collection Time Recei olga Time (Source) Location / Volume Laterality Blood BLOOD SPECIMEN / Venipuncture / 01/28/2022 9:03 2021 9:16 Unknown Unknown AM CDT AM CDT Elias Warren MD CHEMISTRY Performing Organization Address City/State/ZIP Code Phon e Number [facility] [address] [place] [address] LABORATORY-[facility]TRAL 1999 LABORATORY SCAN-CARDIAC STRIP (01/27/2022 3:00 PM CDT) Narrative This result has an attachment that is no t available. Scanner OTHER (ABNORMAL) CK TOTAL (01/27/2022 8:46 AM CDT)Only the most recent of4 results within the time period is included. P athologist Signature CK,TOTAL 1,405 (H) 29 - 168 01/27/2022 [facility] IU/L 9:48 AM CDT LABORATORY-[facility] LABORATORY Specimen Anatomical Collection Method Collection Time Receive d Time (Source) Location / / Volume Laterality Blood BLOOD SPECIMEN / Butterfly / 01/27/2022 8:46 AM 01/27 9:06 Unknown Unknown CDT AM CDT Angela Walker NP CHEMISTRY Performing Organization Address City/State/ZIP Code Phon e Number [facility] [address] [place] [address] LABORATORY-CENTRAL 1999 LABORATORY SCAN-CARDIAC STRIP (01/27/2022 8:08 AM CDT) Narrative This result has an attachment that is no t available. Scanner OTHER (ABNORMAL) COMPREHENSIVE URINE DRUG SCREEN (01/27/2022 2:08 AM CDT) [facility] gist Method Time Signature ACETAMINOPHEN POS (A) <=10 01/27/2022 [place] URINE mcg/mL 2:57 PM [facility] AMPHETAMINE URINE NEG <=500 01/27/2022 [place] ng/mL 2:57 PM [facility] BARBITURATE URINE NEG <=200 01/27/2022 [place] ng/mL 2:57 PM [facility] BENZODIAZEPINE NEG <=100 01/27/2022 [place] URINE ng/mL 2:57 PM [facility] BUPRENORPHRINE NEG <=5 ng/mL 01/27/2022 [place] URINE 2:57 PM [facility] COCAINE METAB NEG <=300 01/27/2022 [place] URINE ng/mL 2:57 PM [facility] ETHANOL URINE NEG <=10 01/27/2022 [place] mg/dL 2:57 PM [facility] FENTANYL URINE NEG <=4 ng/mL 01/27/2022 [place] 2:57 PM [facility] METHADONE URINE NEG <=300 01/27/2022 [place] ng/mL 2:57 PM [facility] OPIATES URINE NEG <=300 01/27/2022 [place] ng/mL 2:57 PM [facility] OXYCODONE URINE POS (A) <=100 01/27/2022 [place] ng/mL 2:57 PM [facility] PCP URINE NEG <=25 01/27/2022 [place] ng/mL 2:57 PM [facility] SALICYLATE URINE NEG <=10 01/27/2022 [place] mg/dL 2:57 PM [facility] THC 50 URINE NEG <=50 01/27/2022 [place] ng/mL 2:57 PM [facility] MASS SPECTROMETRY See Below 01/27/2022 [place] URINE 2:57 PM [facility] Comment: Acetaminophen, Citalopram, Ephe drine/Pseudoephedrine, Lidocaine, Lidocaine metabolite, Topiramate, and Topiramate m etabolite present. Specimen Anatomical Collection Method Collection Time Receive d Time (Source) Location / / Volume Laterality Urine URINE SPECIMEN / Non-Blood / 01/27/2022 2:08 AM 01/27 2:16 Unknown Unknown CDT AM CDT Narrative [facility] - 022 2:57 PM CDT Release to patient->Immediate Angela Walker FRANCHISE SALES DIRECTOR URINE Performing Organization Address City/State/ZIP Code Phon e Number [facility] [address] [place] [id number] CENTER MAIL CODE 812 (ABNORMAL) PROCALCITONIN (01/26/2022 4:52 PM CDT)Only the most recent of2 resultswithin the time period is included. [facility] Method Time Signature PROCALCITONIN 27.53 (H) <0.50 01/26/2022 [facility] ng/ml 6:21 PM CDT LABORATORY-ALLEN TRAL LABORATORY Specimen Anatomical Collection Method Collection Time Receive d Time (Source) Location / / Volume Laterality Blood BLOOD SPECIMEN / [facility] / 01/26/2022 4:52 PM 01/26 4:59 Unknown Unknown CDT PM CDT Narrative [facility] LABORATORY-CENTRAL LABORAT ORY - 01/26/2022 6:21 PM CDT Procalcitonin for initial assessment of Lower Respiratory Tract Infection: Results Interpretation <0.1 ng/mL ?Antibiotics strong ly discouraged.* 0.1 - 0.25 ng/mL ??Antibiotics discourag ed. * 0.26 - 0.50 ng/mL Antibiotics encouraged . >0.50 ng/mL ? Antibiotics strongl y encouraged. *If suspicion of infection high, clinica lly unstable, or immunosuppressed: initiate antibiotics. Repeat PCT testing in 6-24 hours. Repeat PCT testing every 1-2 days whil e on antibiotics to assess response to therapy. Procalcitonin for initial assessment of severe sepsis risk: Results Interpretation < 0.5 ng/mL Associated with a low risk f or progression to severe sepsis/septic shock. > 2.0 ng/mL Associated with a high risk for progression to severe sepsis/septic shock. Note: PCT levels below 0.5 ng/mL do not exclude an infection, because localized infections may also be associated with such low levels. If the PCT measurement is done very early after the systemic infec tion process has started (usually <6 johan rs), these values may still be low. PCT levels between 0.5 ng/mL and 2.0 ng/ mL should be interpreted in the context of the specific clinical background and conditions of the individual patient. It is recommended to re-test PCT within 6-24 hours if any concentrations <2.0 ng/mL are obtained. Angela Walker FRANCHISE SALES DIRECTOR SEND OUTS Performing Organization Address City/State/ZIP Code Phon e Number [facility] [address] [place] [address] LABORATORY-CENTRAL 2000 LABORATORY (ABNORMAL) TSH FOR ADD ON (01/26/2022 4:52 PM CDT) P athologist Signature TSH 0.18 (L) 0.35 - 4.94 01/26/2022 [facility] uIU/mL 6:09 PM CDT LABORATORY-CENT [facility] LABORATORY Specimen Anatomical Collection Method Collection Time Receive d Time (Source) Location / / Volume Laterality Blood BLOOD SPECIMEN / [facility] / 01/26/2022 4:52 PM 01/26 4:59 Unknown Unknown CDT PM CDT Narrative [facility] LABORATORY-CENTRAL LABORAT ORY - 01/26/2022 6:09 PM CDT In Adults, TSH values between 5.00 and 10.00 uIU/ml do not necessarily indicate the presence of Hyp othyroidism. Correlation with clinical findings such as presence of goiter and/or Thyroperoxidase (TPO) Antibody ma y be helpful. For more information please refer to COBY 20 ; 291: 228-238. Marilou Regan DO CHEMISTRY Performing Organization Address City/[facility]/ZIP Code Phon e Number [facility] [address] [place] [address] LABORATORY-CENTRAL 2000 LABORATORY T4,FREE (01/26/2022 4:52 PM CDT) athologist Signature T4,FREE 0.86 0.70 - 1.80 01/26/2022 [facility] ng/dL 6:09 PM CDT LABORATORY-CENTR AL LABORATORY Specimen Anatomical Collection Method Collection Time Receive d Time (Source) Location / / Volume Laterality Blood [facility]LOOD [facility]CIMEN / [facility] / 01/26/2022 4:52 PM 01/26 4:59 Unknown Unknown CDT PM CDT Marilou Regan DO CHEMISTRY Performing Organization Address City/[facility]/ZIP Code Phon e Number [facility] [address] [place] [address] LABORATORY-CENTRAL 2000 LABORATORY CALCIUM IONIZED HOSPITAL DRAW ONLY (01/26/2022 4:52 PM CDT)Only the most recent of3 resultswithin the time period is included. athologist Signature CALCIUM,IONIZE 1.22 1.15 - 01/26/2022 [facility] D 1.27 5:04 PM CDT LABORATORY-CENT mmol/L RAL LABORATORY Specimen Anatomical Collection Method Collection Time Receive d Time (Source) Location / / Volume Laterality Blood BLOOD SPECIMEN / [facility] / 01/26/2022 4:52 PM 01/26 4:59 Unknown Unknown CDT PM CDT Hedy Milligan DO CHEMISTRY Performing Organization Address City/[facility]/ZIP Code Phon e Number [facility] [address] [place] [address] LABORATORY-CENTRAL [address] HEAD BRAIN WO (01/26/2022 10:30 AM CDT) Anatomical Region Laterality Modality HEAD, BRAIN Computed Tomography Specimen (Source) Anatomical Collection Method Collection Time Re ceived Time Location / / Volume Laterality 01/26/2022 11:00 AM CDT Impressions 01/26/2022 11:00 AM CDT 1. Unremarkable CT head. No evidence of acute intracranial abnormality. 2. Degenerative changes of the TMJs. Please note that all CT scans at this [facility] use dose modulation, iterative reconstruction, and/or weight-based dosing when appropriate to reduce radiation dose to as low as reasonably achievable. Dictated by Ramila Patten MD @ 01/26/2022 1 1:00:42 AM (Electronically Signed) Narrative 01/26/2022 11:00 AM CDT For Patients: ??As a result of the Cures Act, medical imaging exams and procedure report s are released immediately into your [facility] [employer] medical record. ??You may view this report before your referring provider. ??If you have questions, please contact your health care provider. INDICATION: Mental status change TECHNIQUE: Noncontrast axial CT of the head. Tilley l and sagittal reformats. Bone and soft tissue algorithms. COMPARISON: No relevant comparison studies available at this institution. FINDINGS: The ventricles and cortical sulci appear age-appropriate. No midline shift or mass effect. No acute intracranial hemorrhage or extr a-axial fluid collection. Burrows-white matter differentiation is cordelia ssly maintained. White matter attenuation is within kristan l limits. Calcific plaquing of the intracranial IC As. Midline structures are unremarkable. Bony calvarium appears grossly intact. D egenerative changes at the bilateral TMJs. Paranasal sinuses and mastoid air cells are clear. Leftward nasal septal deviation with laterally directed septal spur. Bilateral auricular cartilage calcificat ions and intra-ocular lens implants. Procedure Note Ramila Patten DO - 01/26/2022Forma tting of this note might be different from the original. For Patients: As a result of the Cures Act, medical imaging exams and procedure reports are released immediately into your electronic medical record. You may view this report before your referring provider. If you have questions, please contact yo ur health care provider. INDICATION: Mental status change TECHNIQUE: Noncontrast axial CT of the head. Tilley l and sagittal reformats. Bone and soft tissue algorithms. COMPARISON: No relevant comparison studies available at this institution. FINDINGS: The ventricles and cortical sulci appear age-appropriate. No midline shift or mass effect. No acute intracranial hemorrhage or extr a-axial fluid collection. Burrows-white matter differentiation is cordelia ssly maintained. White matter attenuation is within kristan l limits. Calcific plaquing of the intracranial IC As. Midline structures are unremarkable. Bony calvarium appears grossly intact. D egenerative changes at the bilateral TMJs. Paranasal sinuses and mastoid air cells are clear. Leftward nasal septal deviation with laterally directed septal spur. Bilateral auricular cartilage calcificat ions and intra-ocular lens implants. IMPRESSION: 1. Unremarkable CT head. No evidence of acute intracranial abnormality. 2. Degenerative changes of the TMJs. Please note that all CT scans at this [facility] use dose modulation, iterative reconstruction, and/or weight-based dosing when appropriate to reduce radiation dose to as low as reasonably achievable. Dictated by Ramila Patten MD @ 01/26/2022 1 1:00:42 AM (Electronically Signed) Angela Walker NP CT SCAN-CARDIAC STRIP (01/26/2022 7:21 AM CDT) Narrative This result has an attachment that is no t available. Scanner OTHER (ABNORMAL) HEMOGLOBIN A1C SCREENING (01/26/2022 4:17 AM CDT) Analysis Performed At Patho logist Time Signature HEMOGLOBIN A1C 6.7 (H) <=6.4 % 01/27/2022 [facility] 2:05 PM CDT HOSPITAL LABORATORY Specimen Anatomical Collection Method Collection Time Receive d Time (Source) Location / / Volume Laterality Blood BLOOD SPECIMEN / [facility] / 01/26/2022 4:17 AM 01/26 4:23 Unknown Unknown CDT AM CDT Narrative [facility] - 01/27/2022 2:05 PM CDT ? (<5.7%) ?Normal ? (5.7% to 6.4%) ? Indicates pr ediabetes ? (>=6.5%) ? Confirms diabetes Falsely low levels may be seen with: Recent Transfusion, Recent Significant B lood Loss, Hemolytic Diseases, or Falsely elevated levels may be seen with : Untreated Anemias, Splenectomy Naveen Marcial MD CHEMISTRY Performing Organization Address City/State/ZIP Code Phon e Number [facility] SENDOUT INTERNAL ZIP [place], [place] [phone] [facility] ,SERUM (01/26/2022 4:17 AM CDT) Analysis Performed At Patho logist Time Signature ,SERU Negative Negative 01/26/2022 [facility] M 10:47 AM CDT LABORATORY-ALLEN TRAL LABORATORY Specimen Anatomical Collection Method Collection Time Receive d Time (Source) Location / / Volume Laterality Blood BLOOD SPECIMEN / [facility] / 01/26/2022 4:17 AM 01/26 4:23 Unknown Unknown CDT AM CDT Quita MIRAMONTES CHEMISTRY Performing Organization Address City/[facility]/ZIP Code [facility] Number [facility] [address] [place] [phone] LABORATORY-CENTRAL 1999 LABORATORY (ABNORMAL) LIPASE (01/26/2022 4:17 AM CDT)Only the most recent of2 resultswithin the time period is included. P athologist Signature LIPASE <5.0 (L) 8.0 - 78.0 01/26/2022 [facility] IU/L 10:36 AM CDT LABORATORY-CENT RAL LABORATORY Specimen Anatomical Collection Method Collection Time Receive d Time (Source) Location / / Volume Laterality Blood BLOOD SPECIMEN / [facility] / 01/26/2022 4:17 AM 01/26 4:23 Unknown Unknown CDT AM CDT Quita MIRAMONTES CHEMISTRY Performing Organization Address City/[facility]/ZIP Code Phon e Number [facility] [address] [place] [address] LABORATORY-CENTRAL 1999 LABORATORY (ABNORMAL) C-REACTIVE PROTEIN (01/25/2022 9:40 PM CDT) Patholo gist Method Time Signature C-REACTIVE 42.31 (H) <0.50 01/25/2022 [facility] PROTEIN mg/dL 11:23 PM CDT LABORATORY-ALLEN TRAL LABORATORY Specimen Anatomical Collection Method / Collection Time Recei olga Time (Source) Location / Volume Laterality Blood BLOOD SPECIMEN / Venipuncture / 01/25/2022 9:40 2021 9:53 Unknown Unknown PM CDT PM CDT Brando Molina [facility] CHEMISTRY Performing Organization Address City/State/ZIP Code Phon e Number [facility] [address] [place] [address] LABORATORY-CENTRAL 2000 LABORATORY (ABNORMAL) Arterial Blood Gas (01/25/2022 8:13 PM CDT)Only the most recent of2 resultswithin the time period is included. [facility] Signature PH, ARTERIAL 7.34 (L) 7.35 - 01/25/2022 [facility] 7.45 8:28 PM CDT LABORATORY-ALLEN TRAL LABORATORY PCO2, ARTERIAL 39 32 - 45 01/25/2022 [facility] mmHg 8:28 PM CDT LABORATORY-ALLEN TRAL LABORATORY PO2, ARTERIAL 393 (H) 83 - 108 01/25/2022 [facility] mmHg 8:28 PM CDT LABORATORY-ALLEN TRAL LABORATORY HCO3, ARTERIAL 21 21 - 28 01/25/2022 [facility] mmol/L 8:28 PM CDT LABORATORY-ALLEN TRAL LABORATORY BASE EXCESS, -4.0 (L) -2.0 - 3.0 01/25/2022 [facility] ARTERIAL 8:28 PM CDT LABORATORY-ALLEN TRAL LABORATORY O2 SATURATION, 100 (H) 94 - 98 % 01/25/2022 [facility] ARTERIAL 8:28 PM CDT LABORATORY-ALLEN TRAL LABORATORY INSPIRED O2 100 01/25/2022 [facility] 8:28 PM CDT LABORATORY-ALLEN TRAL LABORATORY Comment: Unit of Measure: Liters (L) if <=20; Percent (%) if >20 PATIENT TEMPERATURE 38.2 Degrees C 01/25/2022 8:28 PM [facility] CDT LABORATORY-CENTRAL LABORATORY Specimen Anatomical Collection Method / Collection Time Recei olga Time (Source) Location / Volume Laterality Blood ARTERIAL BLOOD Non-Lab 01/25/2022 8:13 01/25/2022 8:21 SPECIMEN / Unknown Venipuncture / PM CDT PM CDT Unknown Nathaniel Lima MD CHEMISTRY Performing Organization Address City/State/ZIP Code Phon e Number [facility] [address] [place] [address] LABORATORY-CENTRAL [facility] LABORATORY XR ABDOMEN 2 VIEWS PORTABLE (01/25/2022 8:27 AM CDT) Anatomical Region Laterality Modality Abdomen Digital Radiography Specimen (Source) Anatomical Collection Method Collection Time Re ceived Time Location / / Volume Laterality 01/25/2022 8:33 AM CDT Impressions 01/25/2022 8:33 AM CDT Right upper quadrant drainage catheter. Cholecystectomy clips. Biliary stent. Nonobstructive bowel gas pattern. No free air identified. Degenerative changes in the spine. Dictated by Nikita Ortega MD @ Jan 25 2022 ??8:33AM (Electronically Signed) ?? Narrative 01/25/2022 8:33 AM CDT For Patients: ??As a result of the Cures Act, medical imaging exams and procedure report s are released immediately into your [employer] medical record. ??You may view this report before your referring provider. ??If you have questions, please contact your health care provider. INDICATION: Abdominal pain. Recent laparoscopic chol ecystectomy. COMPARISON: 01/25/2022. TECHNIQUE: Abdomen supine and lateral decubitus valentín ges. Procedure Note Nikita Ortega MD - 01/25/2022Fo rmatting of this note might be different from the original. For Patients: As a result of the Cures Act, medical imaging exams and procedure reports are released immediately into your electronic medical record. You may view this report before your referring provider. If you have questions, please contact [facility] health care provider. INDICATION: Abdominal pain. Recent laparoscopic chol ecystectomy. COMPARISON: 01/25/2022. TECHNIQUE: Abdomen supine and lateral decubitus valentín ges. IMPRESSION: Right upper quadrant drainage catheter. Cholecystectomy clips. Biliary stent. Nonobstructive bowel gas pattern. No free air identified. Degenerative changes in the spine. Dictated by Nikita Ortega MD @ Jan 25 2022 8:33AM (Electronically Signed) Nathaniel Lima MD GENERAL IMAGING SCAN-CARDIAC STRIP (01/25/2022 7:28 AM CDT) Narrative This result has an attachment that is no t available. Scanner OTHER 12 Lead EKG (01/25/2022 6:34 AM CDT) Component Value Ref Range Test Analysis Performed Pathologis t Method Time At Signature Interpretation Normal sinus rhythm BEYON D NOW Cannot rule out Anterior infarct , age undetermined Abnormal ECG No previous ECGs available Ventricular Rate 96 BPM BEYOND NOW Atrial Rate 96 BPM BEYOND NOW P-R Interval 180 ms BEYOND NOW QRS Duration 84 ms BEYOND NOW QT 378 ms BEYOND NOW QTc 477 ms BEYOND NOW P [place] 10 degrees BEYOND NOW R [place] 66 degrees BEYOND NOW T [place] 12 degrees BEYOND NOW Specimen Anatomical Collection Method Collection Time Receive d Time (Source) Location / / Volume Laterality 01/25/2022 6:34 AM 5:41 CDT PM CDT Nathaniel Lima MD EKG ORD Performing Organization Address City/State/ZIP Code Phon e Number BEYOND NOW [place] XR ERCP BILIARY ONLY (01/25/2022 4:35 AM CDT) Anatomical Region Laterality Modality GALLBLADDER, PANCREAS, LIVER Digital Rad iography Specimen (Source) Anatomical Collection Method Collection Time Re ceived Time Location / / Volume Laterality 01/25/2022 7:37 AM CDT Impressions 01/25/2022 7:37 AM CDT Guidewire placement. Opacification of the biliary tree. Biliary stent placement. Dictated by Nikita Ortega MD @ Jan 25 2022 ??7:37AM (Electronically Signed) ?? Narrative 01/25/2022 7:37 AM CDT For Patients: ??As a result of the Cures Act, medical imaging exams and procedure reports are released immediately into your electronic medical record. ??You may view this report before you r referring provider. ??If you have ques tions, please contact your health care provider. INDICATION: Cholangitis. TECHNIQUE: Eight images obtained during ERCP. 1 min [place] 47 seconds of fluoroscopy time. Procedure Note Nikita Ortega MD - 01/25/2022Fo rmatting of this note might be different from the original. For Patients: As a result of the Cures Act, medical imaging exams and procedure reports are released immediately into your electronic medical record. You may view this report before your referring provider. If you have questions, please contact yo ur health care provider. INDICATION: Cholangitis. TECHNIQUE: Eight images obtained during ERCP. 1 min [place] 47 seconds of fluoroscopy time. IMPRESSION: Guidewire placement. Opacification of th e biliary tree. Biliary stent placement. Dictated by Nikita Ortega MD @ Jan 25 2022 7:37AM (Electronically Signed) Jonathan Donaldson MD FLUOROSCOPY HCHG TUBE PR1, HCHG INSTRUMENT DISP PR10, HCHG STYLET PR1 (01/25/2022 4:08 AM CDT) Narrative Konstantin Ayala CRNA - 01/25/2022 4:08 AM CDT Konstantin Ayala CRNA ? 01/25/2022 ??4:09 AM Procedure: ETT Patient location during procedure: OR ETT Properties Mask Ventilation: not attempted Final Technique: video laryngoscopy and rapid sequence induction Type: straight Location: oral Cuffed: yes Tube Size: 7.0 mm Stylet: yes Laryngoscope Blade: Glidescope Blade Size: 3 Cormack-Lehane Grade View: 1 Insertion Attempts: 1 Placement Verification: auscultation, en d tidal CO2 and symmetrical chest wall movement Assessment: pharynx clear, atraumatic an d dentition unchanged Secured at: 21 Measured From: teeth Difficulty: 0 (not difficult) Electronically signed by Pam Osorio DO ? Pam Osorio DO ANESTHESIA PX NOTE ORDERABLE S ENDOSCOPY (01/25/2022 3:17 AM CDT) Specimen (Source) Anatomical Collection Method Collection Time Re ceived Time Location / / Volume Laterality 01/25/2022 3:17 AM CDT Narrative This result has an attachment that is no t available. Transcriptions Jonathan Donaldson MD - 01/25/2022 4:33 AM CDT [facility] Patient Name: Amaury Carbajal Procedure José e: 01/25/2022 Gender: Female Date of : 1965 Admit Type: Inpatient Procedure: ERCP Proceduralist: Jonathan Donaldson MD - [facility] Gastroenterology DC Indications/Pre-Op Diagnosis: Suspected ascending cholangitis Medications: General Anesthesia Procedure Description: Risk of bleeding, infection, perforatio n, pancreatitis, need for surgery, remote chance of and alt ernatives were discussed, and the patient gave informed consent. The [id number] endoscope was pas sed through the mouth, and advanced to the duodenum and used to in ject contrast into the bile duct. The ERCP was accomplished with ease. Th e patient tolerated the procedure well. Complications: No immediate complication s. Estimated Blood Loss & Specimen: Estimated blood loss: none. Specimen collected: None Findings: A try out person film of the abdomen was obtaine d. Surgical clips, consistent with a previous cholecystectomy, were s een in the area of the right upper quadrant of the abdomen. The esop hagus was successfully intubated under direct vision. The scope was adva nced to a normal major papilla in the descending duodenum without detaile d examination of the pharynx, larynx and associated structures, and u pper GI tract. The upper GI tract was grossly normal. A 0.035 inch x 260 cm straight Dreamwire was passed into the biliary tree. The Dreamtome sp hincterotome was passed over the guidewire and the bile duct was then de eply cannulated. Contrast was injected. I personally interpreted the bile duct images. There was brisk flow of contrast through the ducts. Valentín ge quality was excellent. Contrast extended to the hepatic ducts. The common bile duct was moderately dilated. The largest diamete r was 12 mm. An 8 mm biliary sphincterotomy was made with a Aura XMtom e sphincterotome using ERBE electrocautery. There was no post-sphin cterotomy bleeding. To discover objects, the biliary tree was swept wit h a 12 mm balloon starting at the bifurcation. One stone was removed. No stones remained. One 10 Fr by 5 cm plastic stent with a single external flap and a single internal flap was placed into the common bile duct. B ile flowed through the stent. The stent was in good position. Impressions/Post-Op Diagnosis: - The common bile duct was moderately d ilated. - Choledocholithiasis was found. Comple te removal was accomplished by biliary sphincterotomy and balloon extr action. - A biliary sphincterotomy was performe d. - The biliary tree was swept. - One plastic stent was placed into the common bile duct. Recommendation: - Return patient to ICU for ongoing car e. - Observe patient's clinical course fol lowing today's ERCP with therapeutic intervention. - Avoid aspirin and nonsteroidal anti-i nflammatory medicines for 10 days. - Return to this GI lab for stent remov al at UGI endoscopy in 1 month. Jonathan Donaldson MD 01/25/2022 4:33:47 AM This report has been signed electronical ly. Note Initiated On: 01/25/2022 3:17 AM Jonathan Donaldson MD PROCEDURE ORD (ABNORMAL) CBC WITH AUTO DIFFERENTIAL (01/25/2022 2:48 AM CDT) [facility] Method Time Signature WHITE BLOOD 12.6 (H) 4.5 - 01/25/2022 [facility] COUNT 11.0 3:17 AM CDT LABORATORY-ALLEN thou/cu TRAL mm LABORATORY RED BLOOD COUNT 3.41 (L) 4.00 - 01/25/2022 [facility] 5.20 3:17 AM CDT LABORATORY-ALL[facility] mil/cu mm TRAL LABORATORY HEMOGLOBIN 10.3 (L) 12.0 - 01/25/2022 [facility] 16.0 g/dL 3:17 AM CDT LABORATORY-ALLEN TRAL LABORATORY HEMATOCRIT 31.7 (L) 33.0 - 01/25/2022 [facility] 51.0 % 3:17 AM CDT LABORATORY-ALL[facility] TRAL LABORATORY MCV 93 80 - 100 01/25/2022 [facility] fL 3:17 AM CDT LABORATORY-ALL[facility] TRAL LABORATORY MCH 30.2 26.0 - 01/25/2022 [facility] 34.0 pg 3:17 AM CDT LABORATORY-ALL[facility] TRAL LABORATORY MCHC 32.5 32.0 - 01/25/2022 [facility] 36.0 g/dL 3:17 AM CDT LABORATORY-ALL[facility] TRAL LABORATORY RDW 13.1 11.5 - 01/25/2022 [facility] 15.5 % 3:17 AM CDT LABORATORY-ALL[facility] TRAL LABORATORY PLATELET COUNT 256 140 - 440 01/25/2022 [facility] thou/cu 3:17 AM CDT LABORATORY-[facility] mm TRAL LABORATORY MPV 10.6 6.5 - 01/25/2022 [facility] 11.0 fL 3:17 AM CDT LABORATORY-ALL[facility] TRAL LABORATORY NRBC 0.0 % 01/25/2022 [facility] 3:17 AM CDT LABORATORY-[facility] TRAL LABORATORY ABS NRBC 0.0 thou /cu 01/25/2022 [facility] mm 3:17 AM CDT LABORATORY-ALL[facility] TRAL LABORATORY % NEUT 80.8 % 01/25/2022 [facility] 3:17 AM CDT LABORATORY-ALL[facility] TRAL LABORATORY % LYMPH 8.4 % 01/25/2022 [facility] 3:17 AM CDT LABORATORY-[facility] TRAL LABORATORY % MONO 8.1 % 01/25/2022 [facility] 3:17 AM CDT LABORATORY-[facility] TRAL LABORATORY % EOS 1.4 % 01/25/2022 [facility] 3:17 AM CDT LABORATORY-[facility] TRAL LABORATORY % BASO 0.5 % 01/25/2022 [facility] 3:17 AM CDT LABORATORY-[facility] TRAL LABORATORY % IMMATURE GRAN 0.8 % 01/25/2022 [facility] (METAS,MYELOS,GA 3:17 AM CDT LABORATORY- [facility] OS) TRAL LABORATORY ABSOLUTE 10.2 (H) 1.7 - 7.0 01/25/2022 [facility] NEUTROPHILS thou/cu 3:17 AM CDT LABORATORY-[facility] mm TRAL LABORATORY ABSOLUTE 1.1 0.9 - 2.9 01/25/2022 [facility] LYMPHOCYTES thou/cu 3:17 AM CDT LABORATORY-[facility] mm TRAL LABORATORY ABSOLUTE 1.0 (H) <0.9 01/25/2022 [facility] MONOCYTES thou/cu 3:17 AM CDT LABORATORY-[facility] mm TRAL LABORATORY ABSOLUTE 0.2 <0.5 01/25/2022 [facility] EOSINOPHILS thou/cu 3:17 AM CDT LABORATORY-[facility] mm TRAL LABORATORY ABSOLUTE 0.1 <0.3 01/25/2022 [facility] BASOPHILS thou/cu 3:17 AM CDT LABORATORY-[facility] mm TRAL LABORATORY ABSOLUTE 0.1 <0.3 01/25/2022 [facility] IMMATURE thou/cu 3:17 AM CDT LABORATORY-[facility] GRANULOCYTES(MET mm TRAL ,MYELOS,PROS) LABORATORY Specimen Anatomical Collection Method Collection Time Receive d Time (Source) Location / / Volume Laterality Blood BLOOD SPECIMEN / IV Start / Unknown 01/25/2022 2:48 AM 01/25/2022 3:05 Unknown CDT AM CDT Nathaniel Lima MD HEMATOLOGY Performing Organization Address City/State/ZIP Code Phon e Number [facility] [address] [place] [address] LABORATORY-CENTRAL 2000 LABORATORY LACTATE VENOUS (01/25/2022 2:48 AM CDT) P athologist Signature LACTATE,VENOUS 1.5 0.5 - 2.0 01/25/2022 [facility] mmol/L 3:25 AM CDT LABORATORY-CENT RAL LABORATORY Specimen Anatomical Collection Method Collection Time Receive d Time (Source) Location / / Volume Laterality Blood BLOOD SPECIMEN / IV Start / Unknown 01/25/2022 2:48 AM 01/25/2022 3:07 Unknown CDT AM CDT Nathaniel Lima MD CHEMISTRY Performing Organization Address City/State/ZIP Code Phon e Number [facility] [employer] [facility] [address] [place] [address] LABORATORY-CENTRAL 1999 LABORATORY Blood Culture (01/25/2022 2:48 AM CDT)Only the most recent of2 resultswithin the time period is included. athologist Signature CULTURE No Growth. 01/30/2022 [facility] 5:00 AM CDT LABORATORY-[facility] LABORATORY Specimen Anatomical Collection Method Collection Time Receive d Time (Source) Location / / Volume Laterality Blood BLOOD SPECIMEN / IV Start / Unknown 01/25/2022 2:48 AM 01/25/2022 3:05 Unknown CDT AM CDT Nathaniel Lima MD MICROBIOLOGY Performing Organization Address City/[facility]/ZIP Code Phon e Number [facility] [facility] [address] [place] [address] LABORATORY-CENTRAL 1999 LABORATORY TYPE & SCREEN (01/25/2022 2:48 AM CDT) [facility] gist Method Time Signature ABORH A Rh 01/25/2022 [facility] Positive 5:05 AM CDT LAB-CENTRAL LAB BLOOD BANK ANTIBODY Negative Negative 01/25/2022 [facility] SCREEN 5:05 AM CDT LAB-CENTRAL LAB BLOOD BANK SPECIMEN 01/28/22 01/25/2022 [facility] EXPIRATION 23:59 5:05 AM CDT LAB-CENTRAL DATE/TIME LAB BLOOD BANK Specimen Anatomical Collection Method Collection Time Receive d Time (Source) Location / / Volume Laterality Blood BLOOD SPECIMEN / IV Start / Unknown 01/25/2022 2:48 AM 01/25/2022 3:05 Unknown CDT AM CDT Nathaniel Lima MD BLOOD BANK Performing Organization Address City/State/ZIP Code Phon e Number [facility] [facility] LAB-CENTRAL LAB [address] [place] [address] [phone] BLOOD BANK (ABNORMAL) Protime - INR (01/25/2022 2:48 AM CDT) athologist Signature INR 1.2 <1.3 01/25/2022 [facility] 3:25 AM CDT LABORATORY-[facility] LABORATORY PROTIME 14.4 (H) 12.0 - 13.8 01/25/2022 [facility] [facility] 3:25 AM CDT LABORATORY-[facility] LABORATORY Specimen Anatomical Collection Method Collection Time Receive d Time (Source) Location / / Volume Laterality Blood BLOOD SPECIMEN / IV Start / Unknown 01/25/2022 2:48 AM 01/25/2022 3:06 Unknown CDT AM CDT Narrative [facility] LABORATORY-CENTRAL LABORAT ORY - 01/25/2022 3:25 AM CDT ?Therapeutic Range 2.0-3.0 for most anticoagulated patients 2.5-3.5 or 4.0 for high risk patients The INR is only used for patients on sta ble oral anticoagulant therapy. It makes no significant contribution to the diagnosis or treatment of patients whose Protime is prolonged f or other reasons. INR results are increased when heparin l evels exceed 1.0 U/mL, which corresponds to an aPTT >125 seconds if the patient is on UFH. Nathaniel Lima MD HEMATOLOGY Performing Organization Address [facility] Phon e Number [employer] [address] [place] [address] LABORATORY-CENTRAL 2000 LABORATORY Phosphorus (01/25/2022 2:48 AM CDT) P athologist Signature PHOSPHORUS 4.6 2.3 - 4.7 01/25/2022 [employer] mg/dL 3:28 AM CDT LABORATORY-[facility] LABORATORY Specimen Anatomical Collection Method Collection Time Receive d Time (Source) Location / / Volume Laterality Blood BLOOD SPECIMEN / IV Start / Unknown 01/25/2022 2:48 AM 01/25/2022 3:06 Unknown CDT AM CDT Nathaniel Lima MD CHEMISTRY Performing Organization Address City/[facility] Phon e Number [facility] [employer] [facility] [address] [place] [address] [place] [address] LABORATORY-CENTRAL 1999 LABORATORY (ABNORMAL) COMP METABOLIC PANEL (01/25/2022 2:48 AM CDT) Patholo gist Method Time Signature SODIUM 134 (L) 135 - 145 01/25/2022 [employer] mmol/L 3:30 AM CDT LABORATORY-[facility] TRAL LABORATORY POTASSIUM 4.2 3.5 - 5.0 01/25/2022 [facility] mmol/L 3:30 AM CDT LABORATORY-[facility] TRAL LABORATORY CHLORIDE 105 98 - 110 01/25/2022 [facility] mmol/L 3:30 AM CDT LABORATORY-[facility] TRAL LABORATORY CO2,TOTAL 22 21 - 31 01/25/2022 [facility] mmol/L 3:30 AM CDT LABORATORY-[facility] TRAL LABORATORY ANION GAP 7 5 - 18 01/25/2022 [facility] 3:30 AM CDT LABORATORY-[facility] TRAL LABORATORY GLUCOSE 152 (H) 65 - 100 01/25/2022 [facility] mg/dL 3:30 AM CDT LABORATORY-[facility] TRAL LABORATORY CALCIUM 8.6 8.5 - 01/25/2022 [facility] 10.5 3:30 AM CDT LABORATORY-[facility] mg/dL TRAL LABORATORY BUN 68 (H) 8 - 25 01/25/2022 [facility] mg/dL 3:30 AM CDT LABORATORY-[facility] TRAL LABORATORY CREATININE 4.54 (H) 0.57 - 01/25/2022 [facility] 1.11 3:30 AM CDT LABORATORY-[facility] mg/dL TRAL LABORATORY BUN/CREAT RATIO 15 10 - 20 01/25/2022 [facility] 3:30 AM CDT LABORATORY-[facility] TRAL LABORATORY ALBUMIN 3.0 (L) 3.5 - 5.2 01/25/2022 [facility] g/dL 3:30 AM CDT LABORATORY-[facility] TRAL LABORATORY PROTEIN,TOTAL 6.3 6.0 - 8.0 01/25/2022 [facility] g/dL 3:30 AM CDT LABORATORY-[facility] TRAL LABORATORY GLOBULIN 3.3 2.0 - 3.7 01/25/2022 [facility] g/dL 3:30 AM CDT LABORATORY-[facility] TRAL LABORATORY A/G RATIO 0.9 (L) 1.0 - 2.0 01/25/2022 [facility] 3:30 AM CDT LABORATORY-[facility] TRAL LABORATORY BILIRUBIN,TOTAL 0.7 0.2 - 1.2 01/25/2022 [facility] mg/dL 3:30 AM CDT LABORATORY-[facility] TRAL LABORATORY ALK PHOSPHATASE 97 50 - 136 01/25/2022 [facility] IU/L 3:30 AM CDT LABORATORY-[facility] TRAL LABORATORY ALT (SGPT) 40 8 - 45 01/[facility]/2022 [facility]/L 3:30 AM CDT LABORATORY-[facility] TRAL LABORATORY AST (SGOT) 82 (H) 2 - 40 01/25/2022 [facility] IU/L 3:30 AM CDT LABORATORY-[facility] TRAL LABORATORY eGFR 11 (L) >90 01/25/2022 [facility] mL/min/1. 3:30 AM CDT LABORATORY-ALLEN 73m2 TRAL LABORATORY Comment: As of 2021, eGFR is calcu lated by the CKD-EPI creatinine equation without race adjustment. eGFR can be inf luenced by muscle mass, exercise, and diet. The reported eGFR is an estimation only and is only applicable if the renal function is stable. Specimen Anatomical Collection Method Collection Time Receive d Time (Source) Location / / Volume Laterality Blood BLOOD SPECIMEN / IV Start / Unknown 01/25/2022 2:48 AM 01/25/2022 3:06 Unknown CDT AM CDT Nathaniel Lima MD CHEMISTRY Performing Organization Address [facility] Phon e Number [facility] [employer] [facility] [address] [place] [address] [place] [address] LABORATORY-CENTRAL 2000 LABORATORY (ABNORMAL) MRSA/SA PCR (01/25/2022 2:03 AM CDT) [facility] Method Time Signature MRSA DNA PCR Negative Negative 01/25/2022 [employer] 3:50 AM CDT LABORATORY-CE NTRAL LABORATORY STAPHYLOCOCCUS Positive Negative 01/25/2022 [facility] [employer] AUREUS PCR (A) 3:50 AM CDT LABORATORY-CE NTRAL LABORATORY Specimen Anatomical Collection Method Collection Time Receive d Time (Source) Location / / Volume Laterality Other SPECIMEN FROM Non-Blood / 01/25/2022 2:03 AM 01/26/20 22 2:09 INTERNAL NOSE / Unknown CDT AM CDT Unknown Narrative [facility] LABORATORY-CENTRAL LABORAT ORY - 01/25/2022 3:50 AM CDT S. aureus detected; NOT MRSA. Test result does not preclude MRSA nasal colonization. False negative for MRSA could be obtained if MRSA present in the sample is below threshold of detection. Nathaniel Lima MD MICROBIOLOGY Performing Organization Address [facility] Phon e Number [facility] [employer] [address] [place] [address] LABORATORY-CENTRAL 2000 LABORATORY (ABNORMAL) URINALYSIS MICROSCOPIC (01/25/2022 2:03 AM CDT) [facility] gist Method Time Signature RBC 11-25 (A) 0-2, None 01/[facility]/2022 [facility] Seen /HPF 2:59 AM CDT LABORATORY-[facility] TRAL LABORATORY WBC 6-10 (A) 0-2, 3-5, 01/25/2022 [facility] None Seen 2:59 AM CDT LABORATORY-ALLEN /HPF TRAL LABORATORY BACTERIA Rare None 01/25/2022 [facility] Seen, 2:59 AM CDT LABORATORY-ALLEN Rare, Few TRAL Bacteria/ LABORATORY HPF EPITHELIAL Few None 01/25/2022 [facility] CELLS Seen, Few 2:59 AM CDT LABORATORY-[facility] Epi/HPF TRAL LABORATORY HYALINE CASTS 3-5 0-2, 3-5 01/25/2022 [facility] /LPF 2:59 AM CDT LABORATORY-[facility] TRAL LABORATORY Specimen Anatomical Collection Method Collection Time Receive d Time (Source) Location / / Volume Laterality Urine URINE SPECIMEN / Non-Blood / 01/25/2022 2:03 AM 01/25 2:09 Unknown Unknown CDT AM CDT Nathaniel Lima MD URINE Performing Organization Address City/State/ZIP Code Phon e Number [employer] [address] [place] [address] [place] [address] LABORATORY-CENTRAL 2000 LABORATORY SODIUM,RANDOM URINE (01/25/2022 2:03 AM CDT) athologist [facility] SODIUM,RANDOM <20 mmol/L 01/25/2022 [facility] [employer] URINE 6:42 AM CDT LABORATORY-CENT RAL LABORATORY Specimen Anatomical Collection Method Collection Time Receive d Time (Source) Location / / Volume Laterality Urine URINE SPECIMEN / Non-Blood / 01/25/2022 2:03 AM 01/25 2:09 Unknown Unknown CDT AM CDT Nathaniel Lima MD URINE Performing Organization Address City/State/ZIP Code Phon e Number [employer] [address] [place], [place] [address] [address] LABORATORY-CENTRAL 2000 LABORATORY CREATININE,RANDOM URINE (01/25/2022 2:03 AM CDT) athologist Signature CREAT,RANDOM 33.7 mg/dL 01/25/2022 [facility] URINE 6:06 AM CDT LABORATORY-[facility] LABORATORY Comment: REFERENCE RANGE: Age Range ?Female ?M liana All Ages ? 47.0-110.0 mg/dl ??63.0-1 66.0 mg/dl Specimen Anatomical Collection Method Collection Time Receive d Time (Source) Location / / Volume Laterality Urine URINE SPECIMEN / Non-Blood / 01/25/2022 2:03 AM 01/25 2:09 Unknown Unknown CDT AM CDT Nathaniel Lima MD URINE Performing Organization Address City/State/ZIP Code Phon e Number [facility] [address] [place] [address] LABORATORY-CENTRAL [facility] LABORATORY (ABNORMAL) Urinalysis W Reflex Microscopic if Positive (01/25/2022 2:03 AM CDT) [facility] gist Method Time Signature COLOR Yellow Yellow Color 01/25/2022 [facility] 2:59 AM CDT LABORATORY-CE NTRAL LABORATORY CLARITY Cloudy (A) Clear 01/25/2022 [facility] Clarity 2:59 AM CDT LABORATORY-CE NTRAL LABORATORY SPECIFIC 1.015 1.010, 01/25/2022 [facility] GRAVITY,URINE 1.015, 2:59 AM CDT LABORATORY-CE 1.020, 1.025 NTRAL LABORATORY PH,URINE 5.5 6.0, 7.0, 01/25/2022 [facility] 8.0, 5.5, 2:59 AM CDT LABORATORY-CE 6.5, 7.5, NTRAL 8.5 LABORATORY UROBILINOGEN, Normal Normal EU/dl 01/25/2022 [facility] 2:59 AM CDT LABORATORY-CE NTRAL LABORATORY PROTEIN, 30 (A) Negative 01/25/2022 [facility] URINE mg/dL 2:59 AM CDT LABORATORY-CE NTRAL LABORATORY GLUCOSE, Negative Negative 01/25/2022 [facility] URINE mg/dL 2:59 AM CDT LABORATORY-CE NTRAL LABORATORY KETONES,URINE Negative Negative 01/25/2022 [facility] mg/dL 2:59 AM CDT LABORATORY-CE NTRAL LABORATORY BILIRUBIN,URI Negative Negative 01/25/2022 [facility] NE 2:59 AM CDT LABORATORY-CE NTRAL LABORATORY OCCULT Large (A) Negative 01/25/2022 [facility] BLOOD,URINE 2:59 AM CDT LABORATORY-CE NTRAL LABORATORY NITRITE Negative Negative 01/25/2022 [facility] 2:59 AM CDT LABORATORY-CE NTRAL LABORATORY LEUKOCYTE Trace (A) Negative 01/25/2022 [facility] ESTERASE 2:59 AM CDT LABORATORY-CE NTRAL LABORATORY Specimen Anatomical Collection Method Collection Time Receive d Time (Source) Location / / Volume Laterality Urine URINE SPECIMEN / Non-Blood / 01/25/2022 2:03 AM 01/25 2:09 Unknown Unknown CDT AM CDT Nathaniel Lima MD URINE Performing Organization Address City/State/ZIP Code Phon e Number [facility] [address] [place] [address] LABORATORY-CENTRAL 2000 LABORATORY PATH TISSUE EXAM (01/21/2022 3:55 PM CDT) Component Value Ref Test Analysis Performed At [facility] gist Range Method Time Signature Case Report Pathology Report ?Case: [id number] ? 01/26/2022 [facility] Authorizing Provider: ??Tamar Leon MD ??Collected: ? 01/21/2022 1555 ? 9:02 AM HEALTH Ordering Location: ? [facility] CENTRAL LAB ?Received: ?01/22/2022 2019 ? CDT ROLO JIMENEZ Pathologist: ? Curtis Barker, ? ENTRAL ? MD ? LABORATORY Specimen: ?Gallbladder ? Final A) GALLBLADDER, CHOLECYSTECTOMY: 022 [facility] Electronically Diagnosis 1. Chronic cholecystitis 9:02 AM HEALT H signed by 2. Cholelithiasis CDT LABORATORY-C [place], 3. Negative for dysplasia and malignancy ENTRAL Curtis Elizalde MD LABORATORY on 022 at 9:02 AM Clinical Cholelithiasis 01/26/2022 [facility] Information and abdominal 9:02 AM HEALTH pain CDT LABORATORY-C ENTRAL LABORATORY Gross A) Received in formalin, lab eled with the patient's name and gallbladder, is a 3 x 3 x 2 cm previously opened gallbladder with smooth serosa. The specimen contains approximately 5 irregular shaped [place] 01/26/2022 [facility] Description ck calculi up to 0.4 cm in g reatest dimension. The mucosa is granular and brown with diffuse scarring and the wall thickness uniformly measures 0.2 cm. ??Patient Care sections are submitted in 1 cassette (cystic duct margin not readily identified). 9:02 AM [facility] CDT LABORATORY-C Time and date in formalin: 1555 on 01/21/2022 ENTRAL LABORATORY TRB 01/25/2022 Microscopic The final 01/26/2022 [facility] Description diagnosis is 9:02 AM HEALTH based on CDT LABORATORY-C microscopic ENTRAL examination of LABORATORY appropriate sections of all specimens. Additional 01/26/2022 [facility] Information Interpreted at [facility], Central Laboratory - [address], [place] [address] 9:02 AM HEALTH CDT LABORATORY-C ENTRAL LABORATORY Specimen Anatomical Location Collection Method Collection Time Received Time (Source) / Laterality / Volume Other SPECIMEN FROM 01/21/2022 3:55 01/22/2022 8:19 GALLBLADDER / PM CDT PM CDT Unknown Tamar Solorzano MD PATHOLOGY/CYTOLOGY Performing Organization Address City/[facility] Phon e Number [facility] [address] [place] [address] LABORATORY-CENTRAL 2000 LABORATORY LAB TRACKING EVENT (01/21/2022 3:43 PM CDT) Specimen Anatomical Collection Method Collection Time Receive d Time (Source) Location / / Volume Laterality Other (Other) Client Collect / 01/21/2022 3:43 PM 12/27 7:45 Unknown CDT PM CDT Tamar Solorzano MD LAB BILL ONLY Performing Organization Address [facility] Phon e Number [facility] [employer] [address] [place] [address] LABORATORY-CENTRAL 1999 LABORATORY from Last 3 Months Additional Health Concerns Infection Onset Date Last Indicated MRSAComment: Order contact precautions. 06/29/2016 06/29/2016 01/25/22 Not eligible for clearing currently due to SARAY drain and antibiotics Nares surveillance cultures needed to cl ear patient if <12 months since positive culture. If >12 months since positive culture, precautions can be discontinued if patient has no MRSA risk factors. #1 +MRSA 09/16/17 exclusions for contact precaution dis continuation (if > 12 months since positive culture): resides in acute/watermelon inspector care, receiving hemodialysis, has chronic open wounds/skin damage, has long-te rm percutaneous indwelling medical devic es Exclusions for nares collection (if <12 months since positive culture) include all of the previous exclusions plus patients on antibiotics 7 days prior to collection Insurance Payer Benefit Plan / Subscriber ID Effective Dates Phone Addre ss Type Group WC WORKERS COMP WC WORKERS COMP 2013-Presen t WC WORKERS COMP WC [facility] xxxxxxxxxxx-0001 2013-Prese [address] [address] [place] [address] [employer] [id number] 2014-Prese [address] [place] [address] [employer] [place] [employer] [id number] 2015-Presen [address] [place] [address] BL[employer]OSS BL[employer] [id number] Effective for [address] [address] [place] [address] BLUE CROSS BLUE CROSS OF [id number] 2015-Presen [address] [place] [address] BLUE CROSS BLUE CROSS OF [id number] 2012-Prese [address] [facility] [address] [employer]ury Carbajal Workers Comp Self 1965 [id number] (Home) [place] [address] [employer] Workers Comp Self 1965 [id number] [address] ([address] [address] Amaury Carbajal Motor Vehicle Self 1965 [id number] [address] (Home[place] [address] [facility]/Jorge [employer] Employer 03/28/2000 ATTN [employer] x5 (Home) PAYABLE [phone] [address] (Work) [place] [address] Advance Directives Latest Code Status on File Code Status Date Activated Date Inactivated Comments Full Code 01/25/2022 1:56 AM 02/05/2022 6:03 PM Code Status Discussion: Reviewed Preferences Full Code 01/25/2022 1:38 AM 01/25/2022 1:56 AM Code Status Discussion: Unable to Assess Preferences, Provid er to review later Full Code 09/14/2017 9:32 AM 09/19/2017 11:28 PM Code Status Discussion: Discussed Full Code 06/28/2016 3:13 PM 07/01/2016 4:08 PM Code Status Discussion: Not Discussed Full Code 11/06/2015 12:29 AM 11/06/2015 4:44 PM Code Status Discussion: Not Discussed Care Teams Diving Fisher Relationship Specialty Start Date End Date Pcp, No PCP - General 12/06/18 . None 01/04/13 . [facility] 02/05/22 [address] [place] [address]
== END 2022-01-25 00:26 | disposition home or self-care (01) ==
PROVIDERS: PCP Family Medicine; Visit Provider Family Medicine
DX: A41.9 Sepsis, unspecified organism (principal); K83.09 Other cholangitis
CPT/HCPCS: A0425; A0426

== ENCOUNTER 2022-02-24 13:20 | Outpatient (CLI) | payer OTHER, SELFPAY ==
--- OUTSIDE RECORDS SUMMARY | 2022-02-24 11:05 | XMS_ITS | Encounter Summary ---
:1965 Author Organization [place] Address [address] [facility] [place] [address] Care Team Providers Name Role Phone Jocelyn Davidson RENATA Unavailable Nikita Gamble Primary Care Provider Naveen Casiano MD Unavailable iMkki Blevins MD Unavailable Mkiki Blevins MD Unavailable Mindi Llanes PA-C Unavailable [phone] Reason for Referral Medication Prior Authorization - Denied Specialty Diagnoses / Procedures Referred By Contact Refer red To Contact Diagnoses Class 1 obesity due to excess calories without serious comorbidity with body mass index (BMI) of 34.0 to 34.9 in adult Mindi Llanes PA-C [address] [facility] [address] [place] [address] Referral ID Status Reason Start Date Expiration Date Visits Requ ested Visits Authorized [id number] Denied 1 1 RAL LAW CLERK Reason for Visit Reason Comments RECHECK Return mary MIRAMONTES Encounter Details Date Type Department Care Team Description 02/09/2022 Virtual Visit [facility] Mindi Llanes Class 1 obesity due Surgical Weight Loss Leah Macias to excess calories [facility] [place] [address] without serious [address] comorbidity with [place] [address] mass index (BMI) of [address] 34.0 to 34.9 in adult [place] [address] (Work) [phone] Social History Tobacco Use Types Packs/Day Years Used Date Smoking Tobacco: Never Smokeless Tobacco: Never Tobacco Cessation: Counseling Given: Not Answered Alcohol Use Standard Drinks/Week Comments Yes 0 (1 standard drink = 0.6 oz pure alcoho l) rare Sex Assigned at Date Recorded Female 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 Thank you for allowing me the privilege of caring for you. We hope we provided you with the excellent service you deserve. To ensure the quality of our services you may receive a patient satisfaction survey from an [employer]. The greatest compliment you can give is [...] of protein in it. FOLLOW-UP: Please call [phone] to schedule your next visit in 3 months. Follow up with meeting/event planner now. Dear Patient, We hope to provide [...] 400lb that have blue-tooth for connecting to SwapMob. Scale to purchase: the Entelos ???Body?? Scale: https://www.Marqeta/us/en/body/shop?gclid=[email or web address]=aw.ds Discount Code: We have a discount code for our patients to bring the cost down to $50, [place]_Scale_20%off Steps to link the scale to SwapMob via an Android Phone (you can always disconnect at any point in the future): The order must be placed first before the patient can access Track My Health within SwapMob. Download Google [employer] chrissy from the [employer] Log in or register using your Google account Download the SwapMob chrissy from [employer] Select add organization Search for [employer] and select it Log into SwapMob Select Track My Health Select the green connect my account button When prompted log into your Google account Select okay to confirm the account Download the IntroNet Mate chrissy from [employer] [place] for Entelos Go to profile Tap Effort[employer] Energy under the Apps section Select the option to activate Google Partpic[employer] Inc. integration Select the same Google account Select okay to confirm the account Steps to link the scale to SwapMob via an iPhone (you can always disconnect at any point in the future): Note Aardvark is not available for download on an iPad The order must be placed first before the patient can access Track My Health within SwapMob. Locate the Health chrissy on your iPhone. Set up your Aardvark account as prompted The Sources page will show Apps that communicate with your Health chrissy. Once all steps are completed,you should see FID3 and Shuropodyt listed under the Apps section and your iPhone under the devices section. Select Health Mate Under 'ALLOW ???HEALTH MATE?? TO WRITE DATA ensure the toggle is on for Weight. This will allow the scale to add your weight to the Aardvark Select MyChart Under 'ALLOW ???MYCHART?? TO READ DATA ensure the toggle is on for Weight. This allows SwapMob to grab the weight from Aardvark so your provider can see your weights. Download the SwapMob chrissy from the Chrissy Store Select [employer] organization Search for [employer] and select it Log into SwapMob Select Track My Health Select the green connect my account button Follow prompts to link your device to SwapMob. Download the Entelos health IBUonline chrissy in the Chrissy Store [place] for Entelos Go to profile Tap Health under the Apps section If prompted to allow access with the Health Chrissy, toggle weight on for read and write access. RAL LAW CLERK documented in this encounter Progress Notes Mindi Llanes PA-C - 02/09/2022 9:30 AM CST Marnie is a 56 year old who is being evaluated via a billable video visit. If the video visit is dropped, the invitation should be resent by: Text to cell phone: [phone] Will anyone else be joining your video visit? No Video-Visit Details Type of service: Video Visit Video Start Time: 9:44 AM Video End Time: 10:05 AM Originating Location (pt. Location): Home Distant Location (provider location): [facility] [place] Platform used for Video Visit: Martin, Had trouble connecting so needed to [facility] to telephone visit. 02/09/2022 Return Medical Weight [...] of protein in it. FOLLOW-UP: Please call [phone] to schedule your next visit in 3 months. Follow up with meeting/event planner now. 40 minutes spent on the date [...] and no distress Sincerely, Mindi Llanes PA-C RAL LAW CLERK documented in this encounter Miscellaneous Notes Assessment [...] to a protein drink like ensure max. RAL LAW CLERK documented in this encounter Plan of Treatment Not on filedocumented as of this encounter Procedures Procedure Name Priority Date/Time Associated Diagnosis Comme nts HOME WEIGHT FLOWSHEET Routine 02/09/2022 12:21 PM Class 1 obes ity due to ORDER FEDERAL LAW CLERK excess calories without serious comorbidity with body mass index (BMI) of 34.0 to 34.9 in adult documented in this encounter Visit Diagnoses Diagnosis Class 1 obesity due to excess calories w ithout serious comorbidity with body mass index (BMI) of 34.0 to 34.9 in adult documented in this encounter Additional Health Concerns Assessment Noted Time PHQ-9 Depression Total Score: 0 02/26/2020 1:30 PM FEDERAL LAW CLERK documented as of this encounter Care Teams Break Off Worker Relationship Specialty Start Date End Date Nikita Gamble PCP - General Family Medicine 05/26/[address] Biology Teacher Dietitian, Registered 05/25/18 [facility] - [address] [place] [address] Naveen Casiano MD Assigned PCP 11/16/20 [address] [place] [address] Mikki Blevins MD MD Endocrinology, 05/07/21 [address] [facility] Diabetes, and [place], [place] Metabolism [address] Mikki Blevins MD Assigned Endocrinology 08/02/21 [facility] [place], [place] [phone] Mindi Llanes Assigned Surgical 09/26/21 PRETTY Macias Provider [address] [facility] [address] [place] [address] documented as of this encounter
--- OUTSIDE RECORDS SUMMARY | 2022-02-24 11:05 | XMS_ITS | Encounter Summary ---
:1965 Author Organization [place] Address [address] [facility] [place] [address] Care Team Providers Name Role Phone Jocelyn [...] Specialty Clinic [facility] ent (Primary [facility] Dx) [address] 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 documented as of this encounter Progress Notes [...] Depression Total Score: 0 02/26/2020 1:30 PM OIL DISPATCHER documented as of this encounter Care Teams Plant Protection Officer Relationship Specialty Start Date End Date Nikita Gamble PCP - General Family Medicine 05/26/20 [facility] [address] [place] [address] Track Manager Dietitian, Registered 05/25/[address] [place] [address] Naveen Casiano MD Assigned PCP 11/16/20 [address] [place] [address] Mikki Blevins MD MD Endocrinology, 05/07/[address] [place] [address] Diabetes, and [place], [place] Metabolism [address] Mikki Blevins MD Assigned Endocrinology 08/02/21 [facility] [place] [address] Mindi Llanes Assigned Surgical 09/26/21 PRETTY Macias Provider [address] [facility] [address] [place] [address] documented as of this encounter
--- OUTSIDE RECORDS SUMMARY | 2022-02-24 11:05 | XMS_ITS | Clinical Summary ---
:1965 Author Organization [place] Address [address] [place] [address] Care Team Providers Name Role Phone Jocelyn Davidson RENATA Unavailable Nikita Gamble Primary Care Provider Naveen Casiano MD Unavailable Mikki Blevins MD Unavailable Mikki Blevins MD Unavailable Mindi Llanes PA-C Unavailable [phone] Allergies No known active allergies Medications Medication [...] hours Using T:Connect: Yes Dexcom Sharing Code: [id number] blood glucose USE TO TEST BLOOD 200 [...] (BMI) of 34.0 to 34.9 in adult 02/09/2022 Telephone Surgery Mindi Llanes Prior Auth - Medication PRETTY Macias (phentermine (ADIPEX-P) 37.5 MG tablet - EPA DENIED) 12/29/2021 Virtual Visit Endocrinology Mikki Blevins MD No-show for appointment (Primary Dx) 12/24/2021 Telephone Surgery Mindi Llanes Refill Reque st PRETTY Macias (phentermine) 12/20/2021 Refill Surgery Mindi Llanes Medication R efill PRETTY Macias from Last 3 Months Immunizations Name Administration Dates Next Due Flu, Unspecified 02/01/2017, 12/21/2013 HepB-Adult 04/16/2014, 10/18/2013, 05/31/2013 Influenza (High Dose) 3 valent 02/01/2017 vaccine Influenza Vaccine 50-64 or 18-64 01/26/2018 w/egg allergy (Flublok) Influenza Vaccine >6 months 12/27/2019, 01/20/2017, 01/12/20 16, (Alfuria,Fluzone) 12/30/2014, 12/26/2013 TD (ADULT, 7+) 01/12/2016 Tdap (Adacel,boostrix) 08/25/2006, 08/24/2005 Social History Tobacco Use Types Packs/Day Years Used Date Smoking Tobacco: Never Smokeless Tobacco: Never Tobacco Cessation: Counseling Given: Not Answered Alcohol Use Standard Drinks/Week Comments Yes 0 (1 standard drink = 0.6 oz pure alcoho l) rare Sex Assigned at Date Recorded Female 03/04/2020 12:33 PM VISITOR SERVICES COORDINATOR Last Filed Vital Signs Vital Sign Reading Time Taken Comments Blood Pressure 128/68 11/06/2020 3:31 PM CDT Pulse 75 11/06/2020 3:31 PM CDT Temperature 37 ??C (98.6 ??F) 11/06/2020 3:31 PM CDT Respiratory Rate 19 02/26/2020 1:31 PM VISITOR SERVICES COORDINATOR Oxygen Saturation 96% 11/06/2020 3:31 PM CDT Inhaled Oxygen Concentration - - Weight 111.1 kg (245 lb) 02/09/2022 9:39 AM VISITOR SERVICES COORDINATOR last re corded Height 180.3 cm (5' 11) 02/09/2022 9:39 AM VISITOR SERVICES COORDINATOR pt repo rted Body Mass Index 34.17 02/09/2022 9:39 AM VISITOR SERVICES COORDINATOR Plan of Treatment Health Maintenance Due Date [...] Class 1 obes ity due to ORDER VISITOR SERVICES COORDINATOR excess calories without serious comorbidity with body mass index (BMI) of 34.0 to 34.9 in adult from Last 3 Months Insurance Payer Benefit Plan / Subscriber ID Effective Phone Address T ype Group Dates [facility] [id number] 2016-Pres [phone] [address] O ADVANTAGE ent [address] [place] [address] Care Teams Manager Regional Relationship Specialty Start Date End Date Nikita Gamble PCP - General Family Medicine 05/26/20 [facility] [address] [place] [address] Project Product Manager Dietitian, Registered 05/25/18 [facility] [address] [place] [id number] Naveen Casiano MD Assigned PCP 11/16/20 [address] [address] [place], [place] [id number] Mikki Blevins MD MD Endocrinology, 05/07/21 [address] [facility] Diabetes, and [place], [place] Metabolism [address] Mikki Blevins MD Assigned Endocrinology 08/02/21 [facility] [place] [address] Mindi Llanes Assigned Surgical 09/26/21 PRETTY Macias Provider [address] [place] [address]
--- OUTSIDE RECORDS SUMMARY | 2022-02-24 11:05 | XMS_ITS | Encounter Summary ---
:1965 Author Organization [place] Address [address] [facility] [place] [address] Care Team Providers Name Role Phone Jocelyn Davidson RENATA Unavailable Nikita Gamble Primary Care Provider Naveen Casiano MD Unavailable Mikki Blevins MD Unavailable Mikki Blevins MD Unavailable Mindi Llanes PA-C Unavailable Reason for Visit Reason Onset Date Comments Prior Auth - Medication 02/09/2022 phentermine (JONATHAN PEX-P) 37.5 MG tablet - EPA DENIED Encounter Details Date Type Department Care Team Description 02/09/2022 Telephone [facility] Mindi Llanes Prior A [facility] - Medication Surgical Weight Loss Leah Macias (phentermine (ADIPEX-P) Clinic [place] [address] [facility] 37.5 MG tablet - EPA [address] [facility] [address] DENIED) [place] [address] [place] [address] [place] [address] [phone] Social History Tobacco Use Types Packs/Day Years Used Date Smoking Tobacco: Never Smokeless Tobacco: Never Alcohol Use Standard Drinks/Week Comments Yes 0 (1 standard drink = 0.6 oz pure alcoho l) rare Sex Assigned at Date Recorded Female 03/04/2020 12:33 PM DIRECTOR CHEMISTRY documented as of this encounter Miscellaneous Notes Telephone Encounter - Annette Deutsch - 02/09/2022 5:20 PM CST Images from the original note were not included. PRIOR AUTHORIZATION DENIED Medication: phentermine (ADIPEX-P) 37.5 MG tablet - EPA DENIED Denial Date: 02/09/2022 Denial Rational: Appeal Information: CTOR CHEMISTRY documented in this encounter Plan of Treatment Not on filedocumented as of this encounter Visit Diagnoses Not on filedocumented in this encounter Additional Health Concerns Assessment Noted Time PHQ-9 Depression Total Score: 0 02/26/2020 1:30 PM DIRECTOR CHEMISTRY documented as of this encounter Care Teams Liability Claims Adjuster Relationship Specialty Start Date End Date Nikita Gamble PCP - General Family Medicine 05/26/[address] Pasteurizing Machine Operator Dietitian, Registered 05/25/18 [facility] [address] [place] [address] [place] [address] Naveen Casiano MD Assigned PCP 11/16/20 [address] [place], [place] [id number] Mkiki Blevins MD MD Endocrinology, 05/07/21 9[address] [facility] Diabetes, and [place], [place] Metabolism [address] Mikki Blevins MD Assigned Endocrinology 08/02/21 [facility] Provider [place], [place] [id number] Mindi Llanes Assigned Surgical 09/26/21 PRETTY Macias Provider [facility] [facility] [place] [address] documented as of this encounter
--- OUTSIDE RECORDS SUMMARY | 2022-02-24 11:05 | XMS_ITS | Encounter Summary ---
:1965 Author Organization [place] Address [address] [facility] [place] [address] Care Team Providers Name Role Phone Jocelyn Davidson RENATA Unavailable Nikita Gamble Primary Care Provider Naveen Casiano MD Unavailable Mikki Blevins MD Unavailable Mikki Blevins MD Unavailable Mindi Llanes PA-C Unavailable Reason for Visit Reason Onset Date Comments Refill Request 12/24/2021 phentermine Encounter Details Date Type Department Care Team Description 12/24/2021 Telephone [facility] Mindi Llanes Refill Request Surgical Weight Loss Leah Macias (phentermine) [id number] [place] [address] [place] [address] [phone] Social History Tobacco Use Types Packs/Day Years Used Date Smoking Tobacco: Never Smokeless Tobacco: Never Alcohol Use Standard Drinks/Week Comments Yes 0 (1 standard drink = 0.6 oz pure alcoho l) rare Sex Assigned at Date Recorded Female 03/04/2020 12:33 PM CERTIFIED MASTER LOCKSMITH documented as of this encounter Miscellaneous Notes Telephone Encounter - Alix Marquez, RN - 12/25/2021 8:20 AM CDT Phentermine refilled 12/24/21. Alix Kim, MS, RD, RN Telephone Encounter - Trinidad Lamb - 12/24/2021 4:22 PM CDT Reason for Call: Medication or medication refill: Do you use a [facility]? Name of the pharmacy and phone number for the current request: [id number] [place] [phone] [place] [address] ( ) Name of the medication requested: [...] Depression Total Score: 0 02/26/2020 1:30 PM CERTIFIED MASTER LOCKSMITH documented as of this encounter Care Teams Pot Sander Relationship Specialty Start Date End Date Nikita Gamble PCP - General Family Medicine 05/26/20 [facility] [address] [place] [address] Hydrographic Engineer Dietitian, Registered 05/25/18 [facility] [place] [address] Naveen Casiano MD Assigned PCP 11/16/20 [address] [place], [place] [phone] Mikki Blevins MD MD Endocrinology, 05/07/[address] Diabetes, and [place], [place] Metabolism [address] Mikki Blevins MD Assigned Endocrinology 08/02/21 [facility] [place], [place] [phone] Mindi Llanes Assigned Surgical 09/26/21 PRETTY Macias Provider [address] [place], [place] [address] documented as of this encounter
--- OUTSIDE RECORDS SUMMARY | 2022-02-24 11:06 | XMS_ITS | Encounter Summary ---
:1965 Author Organization [place] Address [address] [facility] [place] [address] Care Team Providers Name Role Phone Jocelyn Davidson RENATA Unavailable Nikita Gamble Primary Care Provider Naveen Casiano MD Unavailable Mikki Blevins MD Unavailable Mikki Blevins MD Unavailable Mindi Llanes PA-C Unavailable Reason for Visit Reason Comments Medication Refill Encounter Details Date Type Department Care Team Description 11/09/2021 Refill [facility] Mikki Blevins MD Medication Refill [facility] [address] [place] [address] [place], [place] [phone] (W ork) [address] [phone] Social History Tobacco Use Types Packs/Day Years Used Date Smoking Tobacco: Never Smokeless Tobacco: Never Alcohol Use Standard Drinks/Week Comments Yes 0 (1 standard drink = 0.6 oz pure alcoho l) rare Sex Assigned at Date Recorded Female 03/04/2020 12:33 PM PHOTOGRAPHIC ENLARGER OPERATOR documented as of this encounter Miscellaneous [...] Depression Total Score: 0 02/26/2020 1:30 PM PHOTOGRAPHIC ENLARGER OPERATOR documented as of this encounter Care Teams Cafeteria Attendant Relationship Specialty Start Date End Date Nikita Gamble PCP - General Family Medicine 05/26/[address] Gearman Dietitian, Registered 05/25/18 [facility] [address] [place] [address] [place] [address] Naveen Casiano MD Assigned PCP 11/16/20 [address] [place] [address] Mikki Blevins MD MD Endocrinology, 05/07/21 909 [facility] Diabetes, and [place], [place] Metabolism [address] Mikki Blevins MD Assigned Endocrinology 08/02/21 [facility] Provider [place], [place] [phone] Mindi Llanes Assigned Surgical 09/26/21 PRETTY Macias Provider [address] [facility] [address] [place], [place] [address] documented as of this encounter
--- OUTSIDE RECORDS SUMMARY | 2022-02-24 11:06 | XMS_ITS | Encounter Summary ---
:1965 Author Organization [place] Address [address] [facility] [place] [address] Care Team Providers Name Role Phone Jocelyn Davidson Bran YANEZ Unavailable Nikita Gamble Primary Care Provider Naveen Casiano MD Unavailable Harlan Lin MD Unavailable Unavailable Reason for Visit Reason Comments Medication Refill Encounter Details Date Type Department Care Team Description 12/10/2020 Refill [facility] Annette Alvarez, Medication Refill [address] [phone] [place] [address] (Wo rk) Social History Tobacco Use Types Packs/Day Years Used Date Smoking Tobacco: Never Smokeless Tobacco: Never Alcohol Use Standard Drinks/Week Comments Yes 0 (1 standard drink = 0.6 oz pure alcoho l) rare Sex Assigned at Date Recorded Female 03/04/2020 12:33 PM REGISTRY NP COVID-19 Exposure Response Date Recorded In the [...] the [facility] refill protocol STEPHANIE Guidry, RN [facility] documented in this encounter Plan of Treatment Not on filedocumented as of this encounter Visit Diagnoses Diagnosis Type 1 diabetes mellitus with stage 3a c hronic kidney disease (H) - Primary documented in this encounter Additional Health Concerns Assessment Noted Time PHQ-9 Depression Total Score: 0 02/26/2020 1:30 PM REGISTRY NP documented as of this encounter Care Teams School Fundraising Director Relationship Specialty Start Date End Date Nikita Gamble PCP - General Family Medicine 05/26/20 [facility] [address] [place] [address] E D Tech Dietitian, Registered 05/25/18 [facility] [address] [place] [address] [place] [address] Naveen Casiano MD Assigned PCP 11/16/20 [address] [place], [place] [phone] Harlan Lin Assigned Endocrinology 12/07/20 08/01/21 MD [facility] Provider NO INFO AVAILABLE documented as of this encounter
--- OUTSIDE RECORDS SUMMARY | 2022-02-24 11:06 | XMS_ITS | Encounter Summary ---
:1965 Author Organization [place] Address [address] [facility] [place] [address] Care Team Providers Name Role Phone Jocelyn Davidson RD Unavailable Nikita Gamble Primary Care Provider Naveen Casiano MD Unavailable Harlan Lin MD Unavailable Unavailable Mikki Blevins MD Unavailable Mikki Blevins MD Unavailable Mindi Llanes PA-C Unavailable [phone] Reason for Visit Reason Onset Date Comments Diabetes Education 12/05/2020 Encounter Details Date Type Department Care Team Description 12/05/2020 Telephone [facility] Harlan Lin gail Education [place] Endocrinolog y MD Bassam [address] [facility] [place] [address] AVAILABLE [phone] Social History Tobacco Use Types Packs/Day Years Used Date Smoking Tobacco: Never Smokeless Tobacco: Never Alcohol Use Standard Drinks/Week Comments Yes 0 (1 standard drink = 0.6 oz pure alcoho l) rare Sex Assigned at Date Recorded Female 03/04/2020 12:33 PM 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 Plan for 2nd outreach attempt within 1 week. [facility] [place] [facility] Sched[facility] documented in this encounter Plan of Treatment Not on filedocumented as of this encounter Visit Diagnoses Not on filedocumented in this encounter Additional Health Concerns Assessment Noted Time PHQ-9 Depression Total Score: 0 02/26/2020 1:30 PM DISTILLERY WORKER GENERAL documented as of this encounter Care Teams Viscera Washer Relationship Specialty Start Date End Date Nikita Gamble PCP - General Family Medicine 05/26/[address] Drugless Doctor Dietitian, Registered 05/25/18 [facility] [address] [place] [address] [place] [address] Naveen Casiano MD Assigned PCP 11/16/20 [address] [place] [address] Harlan Lin Assigned Endocrinology 12/07/20 08/01/21 MD Bassam Provider NO INFO AVAILABLE Mikki Blevins MD MD Endocrinology, 05/07/21 [address] [facility] Diabetes, and [place], [place] Metabolism [id number] Mikki Blevins MD Assigned Endocrinology 08/02/21 [facility] [place] [address] Mindi Llanes Assigned Surgical 09/26/21 PRETTY [facility] Provider [address] [place] [address] [address] [place] [address] documented as of this encounter
--- OUTSIDE RECORDS SUMMARY | 2022-02-24 11:06 | XMS_ITS | Encounter Summary ---
:1965 Author Organization [place] Address [address] [facility] [place] [address] Care Team Providers Name Role Phone Jocelyn Davidson RENATA Unavailable Tamar Murphy APRN RUBBISH COLLECTION SUPERVISOR Unavailable Nikita Gamble Primary Care Provider Reason for Visit Reason Comments Headache Encounter Details Date Type Department Care Team Description 11/06/2020 Office Visit [facility] Naveen Casiano, Migrain e with status [facility] migrainosus, [address] intractable, [place], [place] unspeci fied migraine [address] type (Primary Dx) [phone] Social History Tobacco Use Types Packs/Day Years Used Date Smoking Tobacco: Never Smokeless Tobacco: Never Alcohol Use Standard Drinks/Week Comments Yes 0 (1 standard drink = 0.6 oz pure alcoho l) rare Sex Assigned at Date Recorded Female 03/04/2020 12:33 PM SENIOR ACCOUNTS PAYABLE CLERK COVID-19 Exposure Response Date Recorded In [...] Total Score: 0 02/26/2020 1:30 PM SENIOR ACCOUNTS PAYABLE CLERK documented as of this encounter Care Teams Bar Helper Relationship Specialty Start Date End Date Nikita Gamble PCP - General Family Medicine 05/26/20 [facility] [address] [place] [address] Tank Carpenter Dietitian, Registered 05/25/18 [facility] [employer] [place] [address] Tamar Murphy APRN RUBBISH COLLECTION SUPERVISOR Assigned PCP 02/08/20 11/15/20 [address] [place] [address] documented as of this encounter
--- OUTSIDE RECORDS SUMMARY | 2022-02-24 11:06 | XMS_ITS | Encounter Summary ---
:1965 Author Organization [place] Address [address] [facility] [place] [address] Care Team Providers Name Role Phone Jocelyn Davidson Bran YANEZ Unavailable Nikita Gamble Primary Care Provider Naveen Casiano MD Unavailable Harlan Lin MD Unavailable Unavailable Reason for Visit Reason Comments Medication Refill Encounter Details Date Type Department Care Team Description 03/14/2021 Refill [facility] Annette Alvarez, Medication Refill [address] [phone] [place] [address] (Wo rk) Social History Tobacco Use Types Packs/Day Years Used Date Smoking Tobacco: Never Smokeless Tobacco: Never Alcohol Use Standard Drinks/Week Comments Yes 0 (1 standard drink = 0.6 oz pure alcoho l) rare Sex Assigned at Date Recorded Female 03/04/2020 12:33 PM ECONOMICS LECTURER documented as of this encounter Miscellaneous Notes Telephone Encounter - Kandi Rooney RN - 03/17/2021 8:49 AM CST Routing refill request to provider for review/approval because: Labs out of range: TSH Patient needs to be seen because it has been more than 1 year since last office visit as patient seen Annette Alvarez OMICS LECTURER documented in this encounter Plan of Treatment Not on filedocumented as of this encounter Visit Diagnoses Diagnosis Type 1 diabetes mellitus with stage 3a c hronic kidney disease (H) - Primary 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 documented in this encounter Additional Health Concerns Assessment Noted Time PHQ-9 Depression Total Score: 0 02/26/2020 1:30 PM ECONOMICS LECTURER documented as of this encounter Care Teams Visual Journalist Relationship Specialty Start Date End Date Nikita Gamble PCP - General Family Medicine 05/26/20 [facility] [address] [place] [address] Mill And Coal Transport Operator Dietitian, Registered 05/25/[address] [place] [address] Naveen Casiano MD Assigned PCP 11/16/20 [address] [place] [address] Harlan Lin Assigned Endocrinology 12/07/20 08/01/21 MD Bassam Provider NO INFO AVAILABLE documented as of this encounter
--- OUTSIDE RECORDS SUMMARY | 2022-02-24 11:06 | XMS_ITS | Encounter Summary ---
:1965 Author Organization [place] Address [address] [place] [address]. [place] [address] Care Team Providers Name Role Phone Jocelyn Davidson RENATA Unavailable Nikita Gamble Primary Care Provider Naveen Casiano MD Unavailable Harlan Lin MD Unavailable Unavailable Encounter Details Date Type Department Care Team Description 12/05/2020 Medical Correspondence [facility] Scan, PUMP PRESCRIPTION Health Info Mgmt Non-Provider ORDER DANIELLE [facility] DIABETES CARE [address] [place] [address] Social History Tobacco Use Types Packs/Day Years Used Date Smoking Tobacco: Never Smokeless Tobacco: Never Alcohol Use Standard Drinks/Week Comments Yes 0 (1 standard drink = 0.6 oz pure alcoho l) rare Sex Assigned at Date Recorded Female 03/04/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 COVID-19 Exposure Response Date Recorded In [...] Depression Total Score: 0 02/26/2020 1:30 PM BUSINESS SERVICES ANALYST documented as of this encounter Care Teams Civil Engineer Land Development Relationship Specialty Start Date End Date Nikita Gamble PCP - General Family Medicine 05/26/20 [facility] [address] [place] [address] Mold Blower Dietitian, Registered 05/25/[address] [place] [address] Naveen Casiano MD Assigned PCP 11/16/20 [address] [place] [address] Harlan Lin Assigned Endocrinology 12/07/20 08/01/21 MD Bassam Provider NO INFO AVAILABLE documented as of this encounter
--- OUTSIDE RECORDS SUMMARY | 2022-02-24 11:06 | XMS_ITS | Encounter Summary ---
:1965 Author Organization [place] Address [facility] [place] [address] Care Team Providers Name Role Phone Jocelyn Davidson Bran YANEZ Unavailable Nikita Gamble Primary Care Provider Naveen Casiano MD Unavailable Encounter Details Date Type Department Care Team Description 12/02/2020 Lab [facility] Type 1 diabetes mellitus (H) [facility] [address] [phone] [phone] Social History Tobacco Use Types Packs/Day Years Used Date Smoking Tobacco: Never Smokeless Tobacco: Never Alcohol Use Standard Drinks/Week Comments Yes 0 (1 standard drink = 0.6 oz pure alcoho l) rare Sex Assigned at Date Recorded Female 03/04/2020 12:33 PM CARBURETOR EXPERT COVID-19 Exposure Response Date Recorded In the [...] City/State/ZIP Code [place] [address] [phone] [facility] [address] [facility] Lab (no room number, 1st floor of clinic) CR LABORATORY [place], [place] [phone] [facility] [phone] [address] [facility] Lab (no room number, 1st floor of clinic) documented in this encounter Visit Diagnoses Diagnosis Type 1 diabetes mellitus (H) Type I (juvenile type) diabetes mellitus without mention of complication, not stated as uncontrolled documented in this encounter Additional Health Concerns Assessment Noted Time PHQ-9 Depression Total Score: 0 02/26/2020 1:30 PM CARBURETOR EXPERT documented as of this encounter Care Teams Transportation Engineer Relationship Specialty Start Date End Date Nikita Gamble PCP - General Family Medicine 05/26/20 [facility] [address] [place] [address] Gasoline Attendant Dietitian, Registered 05/25/18 [facility] [place] [address] Naveen Casiano MD Assigned PCP 11/16/20 [address] [place] [address] documented as of this encounter
--- OUTSIDE RECORDS SUMMARY | 2022-02-24 11:06 | XMS_ITS | Encounter Summary ---
:1965 Author Organization [employer] Address [address] [facility] [place] [address] Care Team Providers Name Role Phone StuartJocelyn [...] stage 3a (H) Mindi Llanes PA-C [address] [facility] [address] [place] [address] Referral ID Status Reason Start Date Expiration Date Visits V isits Requested Authorized [id number] Pending 09/22/2021 09/22/2022 1 1 Review Reason [...] (H) Mikki Blevins MD [facility] [address] [place] [address] [address] [place] [address] Phone: Fax: Referral ID Status Reason Start Date Expiration Date Visits V isits Requested Authorized [id number] Pending 07/28/2021 07/28/2022 1 1 Review Encounter Details Date Type Department Care Team Description 09/22/2021 Virtual Visit [facility] [place] Mindi Llanes Class 2 severe obesity due to excess calories with serious comorbidity and body mass index (BMI) of 36.0 to 36.9 in adult (H) (Primary Dx); Surgical Weight Loss Leah Macias-Ashlee Type 1 diabetes mellitus with complicati ons (H); Clinic [place] [address] Chronic kidney disease, stag e 3a (H); [address] [facility] [address] Benign essential hypertension; [place] [address] Acquired hypothyroidism; [address] Uncontrolled type 1 diabetes with renal manifestation (H); [place] [address] (Work) Migraine with status migrainosus, not in tractable, unspecified migraine type [phone] Social History Tobacco Use Types Packs/Day Years Used Date Smoking Tobacco: Never Smokeless Tobacco: Never Alcohol Use Standard Drinks/Week Comments Yes 0 (1 standard drink = 0.6 oz pure alcoho l) rare Sex Assigned at Date Recorded 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 [email or web address] Goals: Add in short bursts of activity throughout you day. FOLLOW-UP: Please call [phone] to schedule your next visit in 8-10 [...] be resent by: Text to cell phone: [phone] Will anyone else be joining your video visit? No Video-Visit Details Type of service: Video Visit Video Start Time: 9:30 AM Video End Time:10:30 AM Originating Location (pt. Location): Home Distant Location (provider location): [facility] Platform used for Video Visit: [facility] Medical Weight Management Consult PATIENT: Marnie [...] NUTRITION REFERRAL PROGRAM OVERVIEW Reviewed options at [employer] Weight Management including provider visits, heater worker, 24 week healthylifestyle program, health coaching, food supplements, Get Moving program, and psychological support.All questions about weight loss program were answered. SURGICAL WEIGHT LOSS Option presented given pt BMI and current comorbid conditions. Website for bariatric online information session provided. Pt will review at home and we will discuss at our follow up visit. [email or web address] MEDICATIONS: We discussed healthy habits to assist [...] throughout you day. Follow up: Please call [phone] to schedule your next visit in 8-10 [...] foods like these: fried meats, brats, burgers, pashto fries, pizza, cheese, chips, or ice cream. Once a Week Eat fast food (like [employer], [employer], [employer]). Never Eat at a buffet or sit-down [...] hours Using T:Connect: Yes Dexcom Sharing Code: [id number] ??? insulin syringe-needle U-100 (30G X 1/2 [...] Depression Total Score: 0 02/26/2020 1:30 PM INSPECTOR TECHNICIAN documented as of this encounter Care Teams Stamping Press Operator Relationship Specialty Start Date End Date Tony Ackerman PCP - General Family Medicine 05/26/20 [facility] [address] [place] [address] Insole Beveler Dietitian, Registered 05/25/18 [facility] [place] [address] Naveen Casiano MD Assigned PCP 11/16/20 [address] [place], [place] [id number] Mikki Blevins MD MD Endocrinology, 05/07/21 909 [facility] Diabetes, and [place], [place] Metabolism [address] Mikki Blevisn MD Assigned Endocrinology 08/02/21 [facility] [place] [address] documented as of this encounter
--- OUTSIDE RECORDS SUMMARY | 2022-02-24 11:06 | XMS_ITS | Encounter Summary ---
:1965 Author Organization [place] Address [facility] 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 COVID-19 Exposure Response Date Recorded In the [...] Depression Total Score: 0 02/26/2020 1:30 PM ENGINEERING TECHNICAL WRITER documented as of this encounter Care Teams Count Room Clerk Relationship Specialty Start Date End Date Nikita Gamble PCP - General Family Medicine 05/26/20 [facility] [address] [place] [address] Sample Display Preparer Dietitian, Registered 05/25/18 [facility] [place] [address] Naveen Casiano MD Assigned PCP 11/16/20 [address] [place] [address] documented as of this encounter
--- OUTSIDE RECORDS SUMMARY | 2022-02-24 11:06 | XMS_ITS | Encounter Summary ---
:1965 Author Organization [place] Address [address] [facility] [place] [address] Care Team Providers Name Role Phone Jocelyn [...] (H) Mikki Blevins MD Weight Loss Clinic [facility] [address] [place] [address] [address] [place] [address] Phone: Fax: Referral ID Status Reason Start Date Expiration Date Visits V isits Requested Authorized [id number] Pending 07/28/2021 07/28/2022 1 1 Review Reason for Visit Reason Comments New Patient Diabetes Encounter Details Date Type Department Care Team Description 07/28/2021 Virtual Visit [facility] Mikki Blevins MD Class 2 severe obesity with serious chucho rbidity and body mass index (BMI) of 36.0 to 36.9 in adult, unspecified obesity type (H) (Primary Dx); Specialty Clinic [facility] Morbid o besity (H); [facility] Type 1 diabetes mellitus with stage 3a c hronic kidney disease (H); [address] [facility] [place] 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 Location): [place], [place] Distant Location (provider location): Home Platform used for Video Visit: MD Marnie Greer is a 56 year old yo female who presents today for evaluation of diabetes melltius type 1 via a billable video visit. Last seen by Dr Lin 12/03/2020. 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 New [...] Depression Total Score: 0 02/26/2020 1:30 PM SCALLOPER documented as of this encounter Care Teams Fig Washer Relationship Specialty Start Date End Date Nikita Gamble PCP - General Family Medicine 05/26/20 [facility] [address] [place] [address] Stock Handler Floorperson Dietitian, Registered 05/25/18 [facility] [place] [address] Naveen Casiano MD Assigned PCP 11/16/20 [address] [place], [place] [id number] Harlan Lin Assigned Endocrinology 12/07/20 08/01/21 MD Bassam Provider NO INFO AVAILABLE Mikki Blevins MD MD Endocrinology, 05/07/21 909 [facility] Diabetes, and [place], [place] Metabolism [address] documented as of this encounter
--- OUTSIDE RECORDS SUMMARY | 2022-02-24 11:06 | XMS_ITS | Encounter Summary ---
:1965 Author Organization [place] Address [facility] 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 COVID-19 Exposure Response Date Recorded In [...] Depression Total Score: 0 02/26/2020 1:30 PM VAN DRIVER documented as of this encounter Care Teams Public Housing Manager Relationship Specialty Start Date End Date Nikita Gamble PCP - General Family Medicine 05/26/20 [facility] [address] [place] [address] Rock Lather Dietitian, Registered 05/25/18 [facility] [place] [address] Naveen Casiano MD Assigned PCP 11/16/20 [address] [place] [address] Harlan Lin Assigned Endocrinology 12/07/20 08/01/21 MD Bassam Provider NO INFO AVAILABLE documented as of this encounter
--- OUTSIDE RECORDS SUMMARY | 2022-02-24 11:06 | XMS_ITS | Encounter Summary ---
:1965 Author Organization [place] Address [facility] [place] [address] Care Team Providers Name Role Phone Jocelyn Davidson RENATA Unavailable Tamar Murphy APRN SUGAR CONTROLLER Unavailable Nikita Gamble Primary Care Provider Reason for Visit Reason Onset Date Comments Orders 10/22/2020 labs Encounter Details Date Type Department Care Team Description 10/22/2020 Telephone [facility] Naveed Lin Orders (labs) Kenny Banegas MD [address] [facility] NO INFO AVAILABLE [place] [phone] Social History Tobacco Use Types Packs/Day Years Used Date Smoking Tobacco: Never Smokeless Tobacco: Never Alcohol Use Standard Drinks/Week Comments Yes 0 (1 standard drink = 0.6 oz pure alcoho l) rare Sex Assigned at Date Recorded Female 03/04/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 Pt previously seen by Dr. Annette Alvarez. Please send Celly message when pt can schedule labs. Action [...] City/State/ZIP Code [place] [address] [phone] [facility] [address] [facility] Lab (no room number, 1st floor of clinic) CR LABORATORY [place], [place] [phone] [facility] [address] [address] [facility] Lab (no room number, 1st floor of clinic) documented in this encounter Visit Diagnoses Diagnosis Type 1 diabetes mellitus (H) - Primary Type I (juvenile type) diabetes mellitus without mention of complication, not stated as uncontrolled documented in this encounter Additional Health Concerns Assessment Noted Time PHQ-9 Depression Total Score: 0 02/26/2020 1:30 PM STUDENT COUNSELOR documented as of this encounter Care Teams English Composition Teacher Relationship Specialty Start Date End Date Nikita Gamble PCP - General Family Medicine 05/26/20 [facility] [address] [place] [address] Retail Custodial Associate Dietitian, Registered 05/25/18 [facility] [place] [address] Tamar Murphy APRN SUGAR CONTROLLER Assigned PCP 02/08/20 11/15/20 [address] [place] [address] documented as of this encounter
--- OUTSIDE RECORDS SUMMARY | 2022-02-24 11:06 | XMS_ITS | Encounter Summary ---
:1965 Author Organization [place] Address [facility] 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 MACHINE documented as of this encounter Plan of Treatment Not on filedocumented as of this encounter Visit Diagnoses Not on filedocumented in this encounter Additional Health Concerns Assessment Noted Time PHQ-9 Depression Total Score: 0 02/26/2020 1:30 PM INKER MACHINE documented as of this encounter Care Teams Aboriginal Education Teacher Relationship Specialty Start Date End Date Nikita Gamble PCP - General Family Medicine 05/26/20 [facility] [address] [place] [address] Pattern Marker Dietitian, Registered 05/25/18 [facility] [place] [address] Naveen Casiano MD Assigned PCP 11/16/20 [address] [facility] [place], [place] [phone] Harlan Lin Assigned Endocrinology 12/07/20 08/01/21 MD Bassam Provider NO INFO AVAILABLE Mikki Blevins MD MD Endocrinology, 05/07/21 909 [facility] Diabetes, and [place], [place] Metabolism [address] documented as of this encounter
--- OUTSIDE RECORDS SUMMARY | 2022-02-24 11:06 | XMS_ITS | Encounter Summary ---
:1965 Author Organization [place] Address [address] [facility] [place] [address] Care Team Providers Name Role Phone Jocelyn Davidson RENATA Unavailable Nikita Gamble Primary Care Provider Naveen Casiano MD Unavailable Mikki Blevins MD Unavailable Mikki Blevins MD Unavailable Mindi Llanes PA-C Unavailable [phone] Encounter Details Date Type Department Care Team Description 09/29/2021 Virtual Visit [facility] Surgical 3, Sh Wl Diet , RD No Show Weight Loss Clinic [address] [place] [address] Social History Tobacco Use Types Packs/Day Years Used Date Smoking Tobacco: Never Smokeless Tobacco: Never Alcohol Use Standard Drinks/Week Comments Yes 0 (1 standard drink = 0.6 oz pure alcoho l) rare Sex Assigned at Date Recorded Female 03/04/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 documented as of this encounter Progress Notes Haven Keen - 09/29/2021 8:30 AM CDT No charge/no show documented in this encounter Plan of Treatment Not on filedocumented as of this encounter Visit Diagnoses Not on filedocumented in this encounter Additional Health Concerns Assessment Noted Time PHQ-9 Depression Total Score: 0 02/26/2020 1:30 PM WHEEL OF FORTUNE DEALER documented as of this encounter Care Teams Facilities Maintenance Technician Relationship Specialty Start Date End Date Nikita Gamble PCP - General Family Medicine 05/26/20 [facility] [address] [place] [address] Architectural Engineer Dietitian, Registered 05/25/18 [facility] [address] [place] [address] [place] [address] Naveen Casiano MD Assigned PCP 11/16/20 [address] [place] [address] Mikki Blevnis MD MD Endocrinology, 05/07/21 909 [facility] Diabetes, and [place], [place] Metabolism [address] Mikki Blevins MD Assigned Endocrinology 08/02/21 [facility] [place], [place] [id number] Mindi Llanes Assigned Surgical 09/26/21 [facility] Provider [address] [facility] [address] [place] [address] documented as of this encounter
--- OUTSIDE RECORDS SUMMARY | 2022-02-24 11:06 | XMS_ITS | Encounter Summary ---
:1965 Author Organization [place] Address [address] [facility] [place] [address] Care Team Providers Name Role Phone Jocelyn Davidson RENATA Unavailable Nikita Gamble Primary Care Provider Naveen Casiano MD Unavailable Harlan Lin MD Unavailable Unavailable Mikki Blevins MD Unavailable Reason for Visit Reason Comments Medication Refill levothyroxine (SYNTHROID/LEV OTHROID) 175 MCG tablet Encounter Details Date Type Department Care Team Description 06/22/2021 Refill [facility] [place] (levothyroxine [address] [facility] NO INFO (SYNTHROID/LEVOTHROID) [place], [place] AVAILABLE 175 MCG tab let) [id number] Social History Tobacco Use Types Packs/Day Years Used Date Smoking Tobacco: Never Smokeless Tobacco: Never Alcohol Use Standard Drinks/Week Comments Yes 0 (1 standard drink = 0.6 oz pure alcoho l) rare Sex Assigned at Date Recorded Female 03/04/2020 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 documented as of this encounter Miscellaneous Notes [...] Depression Total Score: 0 02/26/2020 1:30 PM METEOROLOGIST IN CHARGE documented as of this encounter Care Teams Tankroom Tender Relationship Specialty Start Date End Date Nikita Gamble PCP - General Family Medicine 05/26/20 [facility] [address] [place] [address] Mainspring Winder And Oiler Dietitian, Registered 05/25/18 [facility] [address] [place] [address] [place] [address] Naveen Casiano MD Assigned PCP 11/16/20 [address] [place] [address] Harlan Lin Assigned Endocrinology 12/07/20 08/01/21 MD [facility] Provider NO INFO AVAILABLE Mikki Blevins MD MD Endocrinology, 05/07/21 909 [facility] Diabetes, and [place], [place] Metabolism [address] documented as of this encounter
--- OUTSIDE RECORDS SUMMARY | 2022-02-24 11:06 | XMS_ITS | Encounter Summary ---
:1965 Author Organization [place] Address [address] [facility] [place] [address] Care Team Providers Name Role Phone Jocelyn Davidson RENATA Unavailable Niktia Gamble Primary Care Provider Naveen Casiano MD Unavailable Mikki Blevins MD Unavailable Mikki Blevins MD Unavailable Reason for Referral Diagnostic Imaging NM (Routine) - Pending Review Specialty Diagnoses / Procedures Referred By Contact Refer red To Contact Diagnoses Gastroparesis Mikki Blevins MD Procedures [place] [address] Referral ID Status Reason Start Date Expiration Date Visits V isits Requested Authorized [id number] Pending 09/17/2021 09/17/2022 1 1 Review Encounter Details Date Type Department Care Team Description 09/17/2021 Orders Only [facility] Mikki Blevins MD Gastroparesis (Primary Specialty Clinic [facility] Dx) [facility] [address] 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 documented as of this encounter Progress Notes Mikki Blevins MD - 09/17/2021 11:45 AM CDT Called to review Ozempic dosing Significant life stressors over past few weeks- Fired from work at [employer] x8 days Bloated/looked like I [...] Depression Total Score: 0 02/26/2020 1:30 PM AIR DEFENCE OFFICER documented as of this encounter Care Teams Food And Drink Factory Workers Relationship Specialty Start Date End Date Nikita Gamble PCP - General Family Medicine 05/26/20 [facility] [address] [place] [address] Log Hauler Dietitian, Registered 05/25/18 [facility] [address] [place] [address] SHARAN CARSON [id number] Naveen Casiano MD Assigned PCP 11/16/20 [address] [place], [place] [id number] Mikki Blevins MD MD Endocrinology, 05/07/21 909 [facility] Diabetes, and [place], [place] Metabolism [address] Mikki Blevins MD Assigned Endocrinology 08/02/21 [facility] [place] [address] documented as of this encounter
--- OUTSIDE RECORDS SUMMARY | 2022-02-24 11:06 | XMS_ITS | Encounter Summary ---
:1965 Author Organization [place] Address [address] [facility] [place] [address] Care Team Providers Name Role Phone Jocelyn Davidson RENATA Unavailable Nikita Gamble Primary Care Provider Naveen Casiano MD Unavailable Harlan Lin MD Unavailable Unavailable Encounter Details Date Type Department Care Team Description 01/01/2021 Orders Only [facility] Naveen Casiano, Post-tr aumatic Clinic [place] osteoarthritis of left [address] [place] [address] knee (Primary Dx) [place] [address] [id number] Social History Tobacco Use Types Packs/Day Years Used Date Smoking Tobacco: Never Smokeless Tobacco: Never Alcohol Use Standard Drinks/Week Comments Yes 0 (1 standard drink = 0.6 oz pure alcoho l) rare Sex Assigned at Date Recorded Female 03/04/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 A dditional information about this [...] COVID-19. This test was validated by the [facility] Infectious Diseases Diagnostic Laboratory. This lab oratory is certified under the Clinical Laboratory Improvement Amen dments of 1987 (CLIA-88) as qualified to perform high complexity lab oratory testing. Naveen Casiano MD LAB - MICRO GENERAL ORDERABL ES Performing Organization Address City/State/ZIP Code Phon e Number [facility] [place] [phone] Diag. Lab [address] [facility], Room [address] [facility] Infectious [place], [place] [phone] Diseases Diagnostic [phone], [facility] Lab (IDDL) [address] [facility], Room D297 documented in this encounter Visit Diagnoses Diagnosis Post-traumatic osteoarthritis of left kn ee - Primary Secondary localized osteoarthrosis, lowe r leg documented in this encounter Additional Health Concerns Assessment Noted Time PHQ-9 Depression Total Score: 0 02/26/2020 1:30 PM NURSES DIRECTOR documented as of this encounter Care Teams Custom Ski Maker Relationship Specialty Start Date End Date Nikita Gamble PCP - General Family Medicine 05/26/20 [facility] [address] [place] [address] Ceramic Capacitor Processor Dietitian, Registered 05/25/18 [facility] - [address] [place] [address] Naveen Casiano MD Assigned PCP 11/16/20 [address] [place] [address] Harlan Lin Assigned Endocrinology 12/07/20 08/01/21 MD [facility] Provider NO INFO AVAILABLE documented as of this encounter
--- OUTSIDE RECORDS SUMMARY | 2022-02-24 11:06 | XMS_ITS | Encounter Summary ---
:1965 Author Organization [place] Address [facility] 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 COVID-19 Exposure Response Date Recorded In the [...] Depression Total Score: 0 02/26/2020 1:30 PM DRIVER MATERIAL HANDLER documented as of this encounter Care Teams Assistant Secretary Relationship Specialty Start Date End Date Nikita Gamble PCP - General Family Medicine 05/26/[address] [id number] Annette Alvarez, Nurse Practitioner Clinical Nurse 03/22/17 10/21/20 [facility] OUTSOLE HANDLER Specialist [address] [place] [address] Car Starter Dietitian, Registered 05/25/18 [facility] [address] [place] [address] [address] [place] [id number] Tamar Murphy, TIMBER DEADENER Assigned PCP 02/08/20 1 OUTSOLE HANDLER [address] [place], [place] [phone] documented as of this encounter
--- OUTSIDE RECORDS SUMMARY | 2022-02-24 11:06 | XMS_ITS | Encounter Summary ---
:1965 Author Organization [place] Address [id number] [place] [address] Care Team Providers Name Role Phone Jocelyn Davidson RENATA Unavailable Nikita Gamble Primary Care Provider Naveen Casiano MD Unavailable Harlan Lin MD Unavailable Unavailable Mikki Blevins MD Unavailable Reason for Visit Reason Comments Medication Refill Encounter Details Date Type Department Care Team Description 06/27/2021 Refill [facility] Naveed Lin [place] [address] [facility] [place] [address] Social History Tobacco Use Types Packs/Day Years Used Date Smoking Tobacco: Never Smokeless Tobacco: Never Alcohol Use Standard Drinks/Week Comments Yes 0 (1 standard drink = 0.6 oz pure alcoho l) rare Sex Assigned at Date Recorded Female 03/04/2020 12:33 PM TELETYPE OPERATOR documented as of this encounter Miscellaneous [...] Depression Total Score: 0 02/26/2020 1:30 PM TELETYPE OPERATOR documented as of this encounter Care Teams Candy Attendant Relationship Specialty Start Date End Date Nikita Gamble PCP - General Family Medicine 05/26/20 [facility] [address] [place] [address] Test Engine Mechanic Dietitian, Registered 05/25/[address] [place] [address] Navene Casiano MD Assigned PCP 11/16/20 [address] [place], [place] [phone] Harlan Lin Assigned Endocrinology 12/07/20 08/01/21 MD [facility] Provider NO INFO AVAILABLE Mikki Blevins MD MD Endocrinology, 05/07/21 909 [facility] Diabetes, and [place], [place] Metabolism [address] documented as of this encounter
--- OUTSIDE RECORDS SUMMARY | 2022-02-24 11:06 | XMS_ITS | Encounter Summary ---
:1965 Author Organization [place] Address [facility] [address] Care Team Providers Name Role Phone Jocelyn [...] at Date Recorded Female 03/04/2020 12:33 PM REAL ESTATE MARKETING COORDINATOR COVID-19 Exposure Response Date Recorded In [...] Depression Total Score: 0 02/26/2020 1:30 PM REAL ESTATE MARKETING COORDINATOR documented as of this encounter Care Teams Sales Account Manager Relationship Specialty Start Date End Date Nikita Gamble PCP - General Family Medicine 05/26/20 [facility] [address] [place] [address] Community Board Member Dietitian, Registered 05/25/18 [facility] [place] [address] Naveen Casiano MD Assigned PCP 11/16/20 [address] [place] [address] documented as of this encounter
--- OUTSIDE RECORDS SUMMARY | 2022-02-24 11:06 | XMS_ITS | Encounter Summary ---
:1965 Author Organization [place] Address [address] [facility] [place] [address] Care Team Providers Name Role Phone Jocelyn Davidson RENATA Unavailable Nikita Gamble Primary Care Provider Naveen Casiano MD Unavailable Mikki Blevins MD Unavailable Mikki Blevins MD Unavailable Mindi Llanes PA-C Unavailable [phone] Reason for Visit Reason Onset Date Comments Medication Question 09/14/2021 OZEMPIC Encounter Details Date Type Department Care Team Description 09/14/2021 Telephone [facility] Mikki Blevins MD Medication Question Specialty Clinic Adithya na [facility] (OZEMPIC) [address] [address] [place] [address] [phone] Social History Tobacco Use Types Packs/Day Years Used Date Smoking Tobacco: Never Smokeless Tobacco: Never Alcohol Use Standard Drinks/Week Comments Yes 0 (1 standard drink = 0.6 oz pure alcoho l) rare Sex Assigned at Date Recorded Female 03/04/2020 12:33 PM 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 Pt [...] Depression Total Score: 0 02/26/2020 1:30 PM CORPORATE CONTROLLER documented as of this encounter Care Teams Procurement Professional Logistics Relationship Specialty Start Date End Date Nikita Gamble PCP - General Family Medicine 05/26/20 [facility] [address] [place] [address] Solderer Barrel Ribs Dietitian, Registered 05/25/[address] [place] [address] Naveen Casiano MD Assigned PCP 11/16/20 [address] [place] [address] Mikki Blevins MD MD Endocrinology, 05/07/21 909 [facility] Diabetes, and [place], [place] Metabolism [address] Mikki Blevins MD Assigned Endocrinology 08/02/21 [facility] [place] [address] Mindi Llanes Assigned Surgical 09/26/21 [facility] Provider [address] [place] [address] documented as of this encounter
--- OUTSIDE RECORDS SUMMARY | 2022-02-24 11:06 | XMS_ITS | Encounter Summary ---
:1965 Author Organization [place] Address [address] [place] [address] Care Team Providers Name Role Phone Jocelyn Davidson RENATA Unavailable Nikita Gamble Primary Care Provider Naveen Casiano MD Unavailable Mikki Blevins MD Unavailable Mikki Blevins MD Unavailable Reason for Visit Reason Onset Date Comments Class 2 severe obesity with serious comorbidity and body ma No Show 09/08/2021 Encounter Details Date Type Department Care Team Description 09/08/2021 Virtual Visit [facility] Mikki Blevins MD No-show for Specialty Clinic [facility] appointm ent ([facility] Dx) [address] [facility] [address] [address] [place] [address] [phone] Social History Tobacco Use Types Packs/Day Years Used Date Smoking Tobacco: Never Smokeless Tobacco: Never Alcohol Use Standard Drinks/Week Comments Yes 0 (1 standard drink = 0.6 oz pure alcoho l) rare Sex Assigned at Date Recorded Female 03/04/2020 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 documented as of this encounter Progress [...] Depression Total Score: 0 02/26/2020 1:30 PM TEMPLATE CUTTER documented as of this encounter Care Teams Flight Security Specialist Relationship Specialty Start Date End Date Nikita Gamble PCP - General Family Medicine 05/26/20 [facility] [address] [place] [address] Temporary Help Agency Referral Clerk Dietitian, Registered 05/25/[address] [place] [address] Naveen Casiano MD Assigned PCP 11/16/20 [address] [place], [place] [phone] Mikki Blevins MD MD Endocrinology, 05/07/21 909 [facility] Diabetes, and [place], [place] Metabolism [address] Mikki Blevins MD Assigned Endocrinology 08/02/21 [facility] [place] [address] documented as of this encounter
--- OUTSIDE RECORDS SUMMARY | 2022-02-24 11:06 | XMS_ITS | Encounter Summary ---
:1965 Author Organization [place] Address [address] [place] [address] Care Team Providers Name Role Phone Jocelyn Davidson Bran YANEZ Unavailable Nikita Gamble Primary Care Provider Naveen Casiano MD Unavailable Mikki Blevins MD Unavailable Mikki Blevins MD Unavailable Reason for Visit Reason Onset Date Comments Left Message To Call 09/21/2021 Encounter Details Date Type Department Care Team Description 09/21/2021 Telephone [facility] Mindi Llanes Left Me ssage To Call Surgical Weight Loss Leah [place] [address] [place] [address] [phone] Social History Tobacco Use Types Packs/Day Years Used Date Smoking Tobacco: Never Smokeless Tobacco: Never Alcohol Use Standard Drinks/Week Comments Yes 0 (1 standard drink = 0.6 oz pure alcoho l) rare Sex Assigned at Date Recorded Female 03/04/2020 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 documented as of this encounter Miscellaneous [...] Total Score: 0 02/26/2020 1:30 PM SERVICE DEVELOPER documented as of this encounter Care Teams Gas Leak Tester Relationship Specialty Start Date End Date Nikita Gamble PCP - General Family Medicine 05/26/[address] Digital Media Representative Dietitian, Registered 05/25/[address] [place] [address] Naveen Casiano MD Assigned PCP 11/16/20 [address] [place] [address] Mikki Blevins MD MD Endocrinology, 05/07/21 909 [facility] Diabetes, and [place], [place] Metabolism [address] Mikki Blevins MD Assigned Endocrinology 08/02/21 [facility] [place], [place] [id number] documented as of this encounter
--- OUTSIDE RECORDS SUMMARY | 2022-02-24 11:06 | XMS_ITS | Encounter Summary ---
:1965 Author Organization [place] Address [address] [facility] [place] [address] Care Team Providers Name Role Phone Jocelyn Davidson Bran YANEZ Unavailable Nikita Gamble Primary Care Provider Naveen Casiano MD Unavailable Harlan Lin MD Unavailable Unavailable Encounter Details Date Type Department Care Team Description 01/05/2021 Lab [facility] Typ e 1 diabetes mellitus with [facility] stage 3a chronic kidney [address] [facility] disease (H) [place], [place] [phone] Social History Tobacco Use Types Packs/Day Years Used Date Smoking Tobacco: Never Smokeless Tobacco: Never Alcohol Use Standard Drinks/Week Comments Yes 0 (1 standard drink = 0.6 oz pure alcoho l) rare Sex Assigned at Date Recorded Female 03/04/2020 12:33 PM PARTITION SETTER COVID-19 Exposure Response Date Recorded In the [...] City/State/ZIP Code Phon [place] [address] [phone] [place] [facility] [address] [facility] Lab (no room number, 1st floor of clinic) CR LAB[facility]ATORY [place], [place] [phone] [facility] [address] Lab [address] [facility] Lab (no room number, 1st [...] LAB - URINE ORDERABLES Performing Organization Address City/[facility] Phon e Number OX LABORATORY [place], [place] [phone] [place] [facility] [address] [place] [address] Lab (no room number, 1st floor of clinic) [facility] [place], [place] [phone] [facility] [phone] [place] [facility] [address] Lab (no room number, 1st floor [...] LAB - BLOOD ORDERABLES Performing Organization Address City/[facility] Phon e Number [facility]ORATORY [place], [place] [phone] [place] [facility] [address] [place] [address] Lab (no room number, 1st floor of clinic) [facility] [place], [place] [phone] [facility] [address] [place] [facility] [address] Lab (no room number, 1st floor of clinic) (ABNORMAL) Lipid panel reflex to direct LDL Fasting (01/05/2021 3:03 PM CDT) [facility] gist Method Time Signature Cholesterol [...] City/State/ZIP Code Phon e Number OX LABORATORY [facility] Clinic - [place], [place] [phone] [place] [facility] [address] [address] Lab (no room number, 1st floor of clinic) [facility] [place], [place] [phone] [facility] [place] [address], [facility] [place] [facility] [address] Lab (no room number, 1st floor of clinic) (ABNORMAL) BASIC METABOLIC PANEL (01/05/2021 3:03 PM CDT) [facility] gist Method Time Signature Sodium [...] LAB - BLOOD ORDERABLES Performing Organization Address City/[facility] Phon e Number OX LABORATORY [facility] [place], [place] [phone] [place] [facility] [address] [address] Lab (no room number, 1st floor of clinic) O[facility] LABORAT[facility] [place], [place] [phone] [facility] [address] [place] [facility] [address] Lab (no room number, 1st floor [...] LAB - BLOOD ORDERABLES Performing Organization Address [facility] Phon e Number O[facility] LABORATORY [facility] [place], [place] [phone] [place] [facility] [address] [place] [address] Lab (no room number, 1st floor of clinic) O[facility]ATORY [place], [place] [phone] [facility] [address] [place] [facility] [address] Lab (no room number, 1st floor of clinic) documented in this encounter Visit Diagnoses Diagnosis Type 1 diabetes mellitus with stage 3a c hronic kidney disease (H) documented in this encounter Additional Health Concerns Assessment Noted Time PHQ-9 Depression Total Score: 0 02/26/2020 1:30 PM PARTITION SETTER documented as of this encounter Care Teams Nanny/Household Manager Relationship Specialty Start Date End Date Nikita Gamble PCP - General Family Medicine 05/26/[address] Horse Racing Analyst Dietitian, Registered 05/25/18 [facility] [place] [place] [address] Naveen Casiano MD Assigned PCP 11/16/20 [address] [place], [place] [phone] Harlan Lin Assigned Endocrinology 12/07/20 08/01/21 MD [place] Provider NO INFO AVAILABLE documented as of this encounter
--- OUTSIDE RECORDS SUMMARY | 2022-02-24 11:06 | XMS_ITS | Encounter Summary ---
:1965 Author Organization [place] Address [address] [facility] [place] [address] Care Team Providers Name Role Phone Jocelyn Davidson RENATA Unavailable Nikita Gamble Primary Care Provider Naveen Casiano MD Unavailable Harlan Lin MD Unavailable Unavailable Encounter Details Date Type Department Care Team Description 01/03/2021 Lab [facility] Naveen Casiano MD [facility] [address] [facility] osteoarthritis of left knee [address] [place] [phone] Social History Tobacco Use Types Packs/Day Years Used Date Smoking Tobacco: Never Smokeless Tobacco: Never Alcohol Use Standard Drinks/Week Comments Yes 0 (1 standard drink = 0.6 oz pure alcoho l) rare Sex Assigned at Date Recorded Female 03/04/2020 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 A dditional information about this [...] COVID-19. This test was validated by the [facility]ious [facility]. This lab oratory is certified under the Clinical Laboratory Improvement Amen dments of 1987 (CLIA-88) as qualified to perform high complexity lab oratory testing. Naveen Casiano MD LAB - MICRO GENERAL ORDERABL ES Performing Organization Address City/State/ZIP Code Phon e Number [facility] [place] [phone] Diag. Lab [address] [facility], Room D297 [facility] Infectious [place], [place] [phone] Diseases Diagnostic [address], [facility] Lab (IDDL) [address] [facility], Room D297 documented in this encounter Visit Diagnoses Diagnosis Post-traumatic osteoarthritis of left kn ee Secondary localized osteoarthrosis, lowe r leg documented in this encounter Additional Health Concerns Assessment Noted Time PHQ-9 Depression Total Score: 0 02/26/2020 1:30 PM PROCESSING MGR documented as of this encounter Care Teams Cable Tender Relationship Specialty Start Date End Date Nikita Gamble PCP - General Family Medicine 05/26/20 [facility] [address] [place] [address] Lead Java Software Engineer Dietitian, Registered 05/25/18 [facility] [address] [place] [address] [place] [id number] Naveen Casiano MD Assigned PCP 11/16/20 [address] [place], [place] [phone] Harlan Lin Assigned Endocrinology 12/07/20 08/01/21 MD Bassam Provider NO INFO AVAILABLE documented as of this encounter
--- OUTSIDE RECORDS SUMMARY | 2022-02-24 11:06 | XMS_ITS | Encounter Summary ---
:1965 Author Organization [place] Address [facility] 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 COVID-19 Exposure Response Date Recorded [...] Depression Total Score: 0 02/26/2020 1:30 PM ROLLING MILL OPERATOR HELPER documented as of this encounter Care Teams Wood Heel Back Liner Relationship Specialty Start Date End Date Nikita Gamble PCP - General Family Medicine 05/26/20 [facility] [address] [place] [address] Labor Gang Supervisor Dietitian, Registered 05/25/18 [facility] [place] [address] Tamar Murphy APRN BUS GREASER Assigned PCP 02/08/20 11/15/20 [address] [place], [place] [id number] documented as of this encounter
--- OUTSIDE RECORDS SUMMARY | 2022-02-24 11:06 | XMS_ITS | Encounter Summary ---
:1965 Author Organization [place] Address [address] [facility] [place] [address] Care Team Providers Name Role Phone StuartJocelyn [...] Expiration Date Visits Requ ested Visits Authorized [id number] Closed 12/03/2020 12/03/2021 1 1 Scheduling Instructions Jocelyn Davidson please. Reason for Visit Reason Comments Establish Care Diabetes Encounter Details Date Type Department Care Team Description 12/03/2020 Virtual Visit [facility] Harlan Lin Type 1 diabetes mellitus with stage 3a chronic kidney disease (H) (Primary Dx); Clinic Kenny Banegas MD 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; [address] [place] [address] NO INFO Insulin pump in place NE AVAILABLE SHARAN Cox [phone] Social History Tobacco Use Types Packs/Day Years Used Date Smoking Tobacco: Never Smokeless Tobacco: Never Tobacco Cessation: Counseling Given: No Alcohol Use Standard Drinks/Week Comments Yes 0 (1 standard drink = 0.6 oz pure alcoho l) rare Sex Assigned at Date Recorded Female 03/04/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 The email she has for her [employer] account is listed as not being found. Remarks on prior issues with lows that resolved with lowering basal rates but has also taken to having scheduled snacks. She does not give insulin for these snacks. Notes she is having highs after her afternoon snack at 1545. Also having highs at [phone]. Dinner is [phone]. ROS: 10 point ROS neg other than [...] DM. 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 Exam: GENERAL: Healthy, alert and no [...] Location): Other office Distant Location (provider location): [facility] Platform used for Video Visit: KristieAFreeze Harlan Lin MD on 12/03/2020 at 11:31 [...] LAB - BLOOD ORDERABLES Performing Organization Address City/[facility]/ZIP Code Phon e Number CR LABORATORY [facility] [place] [address] [place] [facility] [address] [facility] Lab (no room number, 1st floor of clinic) CR LABORATORY [place], [place] [phone] [facility] [address], [facility] Lab [address] [facility] Lab (no room number, 1st floor of [...] LAB - URINE ORDERABLES Performing Organization Address City/[facility]/ZIP Code Phon e Number OX LABORATORY [place], [place] [phone] [place] [facility] [address] [place] [address] Lab (no room number, 1st floor of clinic) OX LABORATORY [place], [place] [phone] [facility] [address] [place] [facility] [address] Lab (no room number, 1st floor [...] City/State/ZIP Code Phon e Number OX LABORATORY [facility] [place], [place] [phone] [place] [facility] [facility] [address] [place] [address] Lab (no room number, 1st floor of clinic) OX LABORATORY [place], [place] [phone] Clinic - [place] [address], [facility] [place] [facility] [address] Lab (no room number, 1st floor of clinic) (ABNORMAL) BASIC METABOLIC PANEL (01/05/2021 3:03 PM CDT) [facility] gist Method Time Signature Sodium 134 [...] City/State/ZIP Code Phon e Number OX LABORATORY [facility] [place], [place] [phone] [place] [facility] [facility] [address] Lab (no room number, 1st floor of clinic) O[facility] LABORATORY [place], [place] [phone] [place] [facility] [address] Lab (no room number, 1st floor [...] City/State/ZIP Code Phon e Number OX LABORATORY [place], [place] [phone] [place] [facility] [address] [place] [address] Lab (no room number, 1st floor of clinic) O[facility] LABORATORY [place], [place] [phone] [place] [facility] [address] Lab (no room number, 1st floor of clinic) documented in this encounter Visit Diagnoses Diagnosis Type 1 diabetes mellitus with stage 3a c hronic kidney disease (H) - Primary 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 Insulin pump in place Insulin pump status documented in this encounter Additional Health Concerns Assessment Noted Time PHQ-9 Depression Total Score: 0 02/26/2020 1:30 PM MEDICAL DATA ENTRY CLERK documented as of this encounter Care Teams Purchasing Manager/Sales Relationship Specialty Start Date End Date Nikita Gamble PCP - General Family Medicine 05/26/20 [facility] [address] [place] [address] Baccarat Dealer Dietitian, Registered 05/25/18 [facility] - [facility] [address] [place] [address] SHARAN CARSON [address] Naveen Casiano MD Assigned PCP 11/16/20 [address] [place] [address] documented as of this encounter
--- OUTSIDE RECORDS SUMMARY | 2022-02-24 11:06 | XMS_ITS | Encounter Summary ---
:1965 Author Organization [place] Address [address] [facility] [place] [address] Care Team Providers Name Role Phone Jocelyn Davidson RENATA Unavailable Nikita Gamble Primary Care Provider Naveen Casiano MD Unavailable Mikki Blevins MD Unavailable Mikki Blevins MD Unavailable Mindi Llanes PA-C Unavailable [phone] Reason for Visit Reason Comments Medication Refill Encounter Details Date Type Department Care Team Description 12/20/2021 Refill [facility] Surgical Thuan Llanes Medication Refill Weight Loss Clinic E alvaro Macias PA-C [address] [facility] out [address] [facility] [address] [place] [address] [place] [address] [phone] Social History Tobacco Use Types Packs/Day Years Used Date Smoking Tobacco: Never Smokeless Tobacco: Never Alcohol Use Standard Drinks/Week Comments Yes 0 (1 standard drink = 0.6 oz pure alcoho l) rare Sex Assigned at Date Recorded Female 03/04/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 documented as of this encounter Miscellaneous [...] Depression Total Score: 0 02/26/2020 1:30 PM ELEMENTARY SUMMER SCHOOL TEACHER documented as of this encounter Care Teams Range Conservationist Relationship Specialty Start Date End Date Nikita Gamble PCP - General Family Medicine 05/26/20 [facility] [address] [place] [address] Machinist Wood Dietitian, Registered 05/25/18 [facility] [place] SHARAN CAR[place] [address] Naveen Casiano MD Assigned PCP 11/16/[address] [place] [address] Mikki Blevins MD MD Endocrinology, 05/07/21 9[address] [facility] Diabetes, and [place], [place] Metabolism [address] Mikki Blevins MD Assigned Endocrinology 08/02/21 [facility] Provider CLINIC [place], [place] [id number] Mindi Llanes Assigned Surgical 09/26/21 [facility] Provider [address] [place], [place] [address] documented as of this encounter
--- OUTSIDE RECORDS SUMMARY | 2022-02-24 11:06 | XMS_ITS | Encounter Summary ---
:1965 Author Organization [place] Address [address] [facility] [place] [place] [address] Care Team Providers Name Role Phone Jocelyn Davidson RENATA Unavailable Nikita Gamble Primary Care Provider Naveen Casiano MD Unavailable Mikki Blevins MD Unavailable Mikki Blevins MD Unavailable Mindi Llanes PA-C Unavailable [phone] Reason for Visit Reason Onset Date Comments No Show No Show 10/20/2021 Encounter Details Date Type Department Care Team Description 10/20/2021 Virtual Visit [facility] Mikki Blevins MD No-show for Specialty Clinic [place] [facility] appointm ent (Primary [place] [facility] Dx) [address] [facility] [address] [address] [place] [address] [phone] Social History Tobacco Use Types Packs/Day Years Used Date Smoking Tobacco: Never Smokeless Tobacco: Never Alcohol Use Standard Drinks/Week Comments Yes 0 (1 standard drink = 0.6 oz pure alcoho l) rare Sex Assigned at Date Recorded Female 03/04/2020 12:33 PM 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 Diabetes, and [place], [place] Metabolism [address] Mikki Blevins MD Assigned Endocrinology 08/02/21 [facility] [place] [address] Mindi Llanes Assigned Surgical 09/26/21 [facility] Provider [address] [facility] [address] [place], [place] [address] documented as of this encounter
--- OUTSIDE RECORDS SUMMARY | 2022-02-24 11:07 | XMS_ITS | Encounter Summary ---
:1965 Author Organization [place] Address [address] [facility] [place] [address] Care Team Providers Name Role Phone Annette Alvarezmamadou ALVAREZ SYSTEM PLANNING ENGINEER Unavailable Goran Lloyd Primary Care Provider Jocelyn Davidson RD Unavailable Reason for Visit Reason Comments Diabetes Encounter Details Date Type Department Care Team Description 11/22/2019 Office Visit [facility] AlvarezAnnette Type 1 rohan syedes mellitus Clinic Max KIM [place] SYSTEM PLANNING ENGINEER with complications (H) [address] [facility] [id number] [place] [address] (Primary Dx) [place] [address] [phone] Social History Tobacco Use Types Packs/Day Years Used Date Smoking Tobacco: Never Smokeless Tobacco: Never Alcohol Use Standard Drinks/Week Comments Yes 0 (1 standard drink = 0.6 oz pure alcoho l) rare Sex Assigned at Date Recorded Female 03/04/2020 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
--- OUTSIDE RECORDS SUMMARY | 2022-02-24 11:07 | XMS_ITS | Encounter Summary ---
:1965 Author Organization [place] Address [address] [facility] [place] [address] Care Team Providers Name Role Phone Annette Alvarez KIM PROCESSING CLERK Unavailable Jocelyn Davidson RD Unavailable Tamar Murphy APRN PROCESSING CLERK Unavailable Nikita Gamble Primary Care Provider Encounter Details Date Type Department Care Team Description 09/04/2020 Virtual Visit [facility] Kalpesh Salmon, Back muscle spasm Clinic [place] PRETTY (Primary Dx) [address] [place] [address] [phone] Social History Tobacco Use Types Packs/Day Years Used Date Smoking Tobacco: Never Smokeless Tobacco: Never Alcohol Use Standard Drinks/Week Comments Yes 0 (1 standard drink = 0.6 oz pure alcoho l) rare Sex Assigned at Date Recorded Female 03/04/2020 12:33 PM 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 Kalpesh Salmon PA-C [facility] PRATIBHA Dye is a 55 year [...] Score: 0 02/26/2020 1:30 PM SALES SUPPORT MANAGER documented as of this encounter Care Teams Grease Maker Head Relationship Specialty Start Date End Date Nikita Gamble PCP - General Family Medicine 05/26/20 [facility] [address] [place] [address] Annette Alvarez, Nurse Practitioner Clinical Nurse 03/22/17 10/21/20 COMMUNICATIONS ASSISTANT PROCESSING CLERK Specialist [address] [place], [place] [phone] Jocelyn Davidson RD Inspector Chief Dietitian, Registered 05/25/18 [facility] [place] [address] Tamar Murphy APRN Assigned PCP 02/08/20 1 PROCESSING CLERK [address] [place], [place] [phone] documented as of this encounter
--- OUTSIDE RECORDS SUMMARY | 2022-02-24 11:07 | XMS_ITS | Encounter Summary ---
:[address] [place] [address]. [place] [address] Care Team Providers Name Role Phone Annette Alvarez CORE PILER OVER HAULER HELPER Unavailable [phone] Goran Lloyd Primary Care Provider Jocelyn Davidson RD Unavailable Encounter Details Date Type Department Care Team Description 02/03/2020 Travel Social History Tobacco Use Types Packs/Day Years Used Date Smoking Tobacco: Never Smokeless Tobacco: Never Alcohol Use Standard Drinks/Week Comments Yes 0 (1 standard drink = 0.6 oz pure alcoho l) rare Sex Assigned at Date Recorded Female 03/04/2020 12:33 PM SENIOR HARDWARE DESIGN ENGINEER COVID-19 Exposure Response Date Recorded In the last month, have you been in contact with No / Unsure 02/03/2020 12:21 PM SENIOR HARDWARE DESIGN ENGINEER someone who was confirmed or suspected to have Coronavirus / COVID-19? documented as of this encounter Plan of Treatment Not on filedocumented as of this encounter Visit Diagnoses Not on filedocumented in this encounter Care Teams Bottom Cager Relationship Specialty Start Date End Date Goran Lloyd PCP - General Family Practice 12/29/17 05/21/[address] [address] Annette Alvarez, Nurse Practitioner Clinical Nurse 03/22/17 10/21/20 CORE PILER OVER HAULER HELPER Specialist [address] [place] [address] Baby Attendant Dietitian, Registered 05/25/18 [facility] [place] [address] documented as of this encounter
--- OUTSIDE RECORDS SUMMARY | 2022-02-24 11:07 | XMS_ITS | Encounter Summary ---
:1965 Author Organization [place] Address [address] [place] [address]. [place] [address] Care Team Providers Name Role Phone Annette Alvarez APRN GUITAR MAKER Unavailable [phone] Goran Lloyd Primary Care Provider Jocelyn Davidson RD Unavailable Reason for Visit Reason Comments Medication Refill Encounter Details Date Type Department Care Team Description 03/22/2019 Refill [facility] Annette Alvarez, Medication Refill [place] ALVAREZ GUITAR MAKER [address] [id number] [place] [address] [phone] Social History Tobacco Use Types Packs/Day Years Used Date Smoking Tobacco: Never Smokeless Tobacco: Never Alcohol Use Standard Drinks/Week Comments Yes 0 (1 standard drink = 0.6 oz pure alcoho l) rare Sex Assigned at Date Recorded Female 03/04/2020 12:33 PM NUCLEAR MONITORING TECHNICIAN documented as of this encounter Miscellaneous Notes Telephone Encounter - Kate Chau RN - 03/23/2019 5:09 PM NUCLEAR MONITORING TECHNICIAN Routing refill request to provider for review/approval [...] the refill encounter. Kate Chau RN Flex EAR MONITORING TECHNICIAN documented in this encounter Plan of Treatment Not on filedocumented as of this encounter Visit Diagnoses Diagnosis Type 1 diabetes mellitus with complicati ons (H) Uncontrolled type 1 diabetes mellitus wi th stage 3 chronic kidney disease Type I (juvenile type) diabetes mellitus with renal manifestations, uncontrolled PCOS (polycystic ovarian syndrome) Polycystic ovaries documented in this encounter Care Teams Security Monitor Relationship Specialty Start Date End Date Goran Lloyd PCP - General Family Practice 12/29/17 05/21/[address] [address] Annette Alvarez, Nurse Practitioner Clinical Nurse 03/22/17 10/21/20 SALESFORCE CONSULTANT GUITAR MAKER Specialist [address] [place], [place] [id number] Jocelyn Davidson RD Life Skills Coordinator Volunteer Dietitian, Registered 05/25/18 [facility] [address] [place] [address] documented as of this encounter
--- OUTSIDE RECORDS SUMMARY | 2022-02-24 11:07 | XMS_ITS | Encounter Summary ---
:1965 Author Organization [place] Address [address] [facility] [place] [address] Care Team Providers Name Role Phone Annette Alvarez CHIMNEY BUILDER EQUALIZER OPERATOR Unavailable Goran Lloyd Primary Care Provider Jocelyn Davidson RD Unavailable Tamar Murphy CHIMNEY BUILDER EQUALIZER OPERATOR Unavailable Encounter Details Date Type Department Care Team Description 02/27/[address] [facility] Kalpesh Lau PA-C [address] [address] [place] [address] [phone] Social History Tobacco Use Types Packs/Day Years Used Date Smoking Tobacco: Never Smokeless Tobacco: Never Alcohol Use Standard Drinks/Week Comments Yes 0 (1 standard drink = 0.6 oz pure alcoho l) rare Sex Assigned at Date Recorded Female 03/04/2020 12:33 PM VACUUM CLEANER ASSEMBLER COVID-19 Exposure Response Date Recorded In the last month, have you been in contact with No / Unsure 02/03/2020 12:21 PM VACUUM CLEANER ASSEMBLER someone who was confirmed or suspected to have Coronavirus / COVID-19? documented as of this encounter Miscellaneous Notes Telephone Encounter - Kalpesh Lau PA-C - 02/27/2020 5:09 PM CST I listened to patient's lungs which sounded quite raspy and congested. Sent in antibiotic to cover for pneumonia and codeine cough syrup. Kalpesh Lau PA-C on 02/27/2020 at 5:09 PM UM CLEANER ASSEMBLER Telephone Encounter - Atiya Cowart - 02/27/2020 3:51 PM CST Patient requesting cough syrup Atiya Cowart/Wrapper Cashier UM CLEANER ASSEMBLER documented in this encounter Plan of Treatment Not on filedocumented as of this encounter Visit Diagnoses Diagnosis Cough - Primary documented in this encounter Additional Health Concerns Infection Onset Date Last Indicated Resolved Time Rule Out COVID-19 02/26/2020 02/26/2020 02/27/2020 4:3 2 PM VACUUM CLEANER ASSEMBLER Assessment Noted Time PHQ-9 Depression Total Score: 0 02/26/2020 1:30 PM VACUUM CLEANER ASSEMBLER documented as of this encounter Care Teams Education General Manager Relationship Specialty Start Date End Date Goran Lloyd PCP - General Family Practice 12/29/17 05/21/20 [facility] [address] [place] [address] Annette Alvarez, Nurse Practitioner Clinical Nurse 03/22/17 10/21/20 CHIMNEY BUILDER EQUALIZER OPERATOR Specialist [address] [place] [address] Deputy Chief Sheriff Dietitian, Registered 05/25/18 [facility] [place] [place] [address] Tamar Murphy APRN Assigned PCP 02/08/20 1 EQUALIZER OPERATOR [address] [place], [place] [id number] documented as of this encounter
--- OUTSIDE RECORDS SUMMARY | 2022-02-24 11:07 | XMS_ITS | Encounter Summary ---
:1965 Author Organization [place] Address [address] [place] [address]. [place] [address] Care Team Providers Name Role Phone Annette Alvarez CODING MANAGER SUPERVISOR TRAIN OPERATIONS Unavailable [phone] Goran Lloyd Primary Care Provider Jocelyn Davidson RD Unavailable Encounter Details Date Type Department Care Team Description 08/16/2019 Travel Social History Tobacco Use Types Packs/Day Years Used Date Smoking Tobacco: Never Smokeless Tobacco: Never Alcohol Use Standard Drinks/Week Comments Yes 0 (1 standard drink = 0.6 oz pure alcoho l) rare Sex Assigned at Date Recorded Female 03/04/2020 12:33 PM COTTON FARMER COVID-19 Exposure Response Date Recorded In the last month, have you been in contact with No / Unsure 08/16/2019 5:23 PM CDT someone who was confirmed or suspected to have Coronavirus / COVID-19? documented as of this encounter Plan of Treatment Not on filedocumented as of this encounter Visit Diagnoses Not on filedocumented in this encounter Care Teams Chief Sustainability Officer Relationship Specialty Start Date End Date Goran Lloyd PCP - General Family Practice 12/29/17 05/21/[address] [address] Annette Alvarez, Nurse Practitioner Clinical Nurse 03/22/17 10/21/20 CODING MANAGER SUPERVISOR TRAIN OPERATIONS Specialist [address] [place] [address] Access Database Developer Dietitian, Registered 05/25/18 [facility] [address] [phone] documented as of this encounter
--- OUTSIDE RECORDS SUMMARY | 2022-02-24 11:07 | XMS_ITS | Encounter Summary ---
:1965 Author Organization [place] Address [address] [place] [address]. [place] [address] Care Team Providers Name Role Phone Annette Alvarez APRN MOTOR VEHICLE REPRESENTATIVE Unavailable Goran Lloyd Primary Care Provider Jocelyn Davidson RD Unavailable Encounter Details Date Type Department Care Team Description 04/16/2019 Travel Social History Tobacco Use Types Packs/Day Years Used Date Smoking Tobacco: Never Smokeless Tobacco: Never Alcohol Use Standard Drinks/Week Comments Yes 0 (1 standard drink = 0.6 oz pure alcoho l) rare Sex Assigned at Date Recorded Female 03/04/2020 12:33 PM LABOR/EXCAVATOR documented as of this encounter Plan of Treatment Not on filedocumented as of this encounter Visit Diagnoses Not on filedocumented in this encounter Care Teams Filter Plant Supervisor Relationship Specialty Start Date End Date Goran Lloyd PCP - General Family Practice 12/29/17 05/21/20 [facility] [address] [place] [address] Annette Alvarez, Nurse Practitioner Clinical Nurse 03/22/17 10/21/20 [employer] MOTOR VEHICLE REPRESENTATIVE Specialist [address] [place], [place] [phone] Jocelyn Davidson RD Gold Beater Dietitian, Registered 05/25/[address] [place] [address] documented as of this encounter
--- OUTSIDE RECORDS SUMMARY | 2022-02-24 11:07 | XMS_ITS | Encounter Summary ---
:1965 Author Organization [place] Address [address] [facility] [place] [address] Care Team Providers Name Role Phone Annette Alvarezmamadou ALVAREZ CARBON BRUSHER ASSEMBLER Unavailable [phone] Goran Lloyd Primary Care Provider Jocelyn Davidson RD Unavailable Encounter Details Date Type Department Care Team Description 08/16/2019 Hospital Encounter [facility] Goran Lloyd [facility] [address] [place] [address] Uncontrolled type 1 diabetes with renal manifestation (H); [facility] Annette KIM Monroe CARBON BRUSHER ASSEMBLER [address] [place], [place] [phone] Abnormal weight gain [address] [place] [address] Social History Tobacco Use Types Packs/Day Years Used Date Smoking Tobacco: Never Smokeless Tobacco: Never Alcohol Use Standard Drinks/Week Comments Yes 0 (1 standard drink = 0.6 oz pure alcoho l) rare Sex Assigned at Date Recorded Female 03/04/2020 12:33 PM PRINTER TECHNICIAN COVID-19 Exposure Response Date Recorded In [...] hours Using T:Connect: Yes Dexcom Sharing Code: [id number] insulin syringe-needle Use 1 syringe as 20 [...] 08/16/2019 [facility] ug/dL 10:27 PM CDT [facility] Comment: 8 AM Cortisol Reference Range = 4-22 ug/ dL 4 PM Cortisol Reference Range = 3-17 ug/ dL Specimen Anatomical Collection Method Collection Time Receive d Time (Source) Location / / Volume Laterality Blood specimen 08/16/2019 5:57 PM 020 5:58 (specimen) CDT PM CDT Annette Alvarez APRN, CNP LAB - BLOOD ORDERABLES Performing Organization Address City/State/ZIP Code Phon e Number [facility] [address] [place] [address] [facility] (ABNORMAL) Renal panel (Alb, BUN, Ca, Cl, CO2, Creat, Gluc, Phos, K, Na) (08/16/2019 5:[address] [facility]) Analysis Performed At [facility] Time Signature Sodium 136 133 - 144 08/16/2019 [place] mmol/L 6:32 PM [facility] Potassium 4.6 3.4 - 5.3 08/16/2019 [facility] mmol/L 6:32 PM [facility] Chloride 107 94 - 109 08/16/2019 [facility] mmol/L 6:32 PM [facility] Carbon Dioxide 24 20 - 32 08/16/2019 [facility] mmol/L 6:39 PM [facility] Anion Gap 5 3 - 14 08/16/2019 [place] mmol/L 6:39 PM [facility] Glucose 166 (H) 70 - 99 08/16/2019 [facility] mg/dL 6:39 PM [facility] Urea Nitrogen 21 7 - 30 08/16/2019 [place] mg/dL 6:39 PM [facility] Creatinine 1.41 (H) 0.52 - 08/16/2019 [facility] 1.04 mg/dL 6:39 PM [facility] GFR Estimate 42 (L) >60 08/16/2019 [place] mL/min/{1. 6:39 PM [facility] 73_m2} [facility] Comment: Non GFR Calc Starting 03/14/2018, serum creatinine ba sed estimated GFR (eGFR) will be calculated using the Chronic Kidney Dise banner Epidemiology Collaboration (CKD-EPI) equation. GFR Estimate If 49 (L) >60 mL/min/{1.73_m2} 08/16/2019 6: 39 PM [facility] Comment: GFR Calc Starting 03/14/2018, serum creatinine ba sed estimated GFR (eGFR) will be calculated using the Chronic Kidney Dise banner Epidemiology Collaboration (CKD-EPI) equation. Calcium 9.0 8.5 - 10.1 mg/dL 08/16/2019 6:39 PM [facility] Phosphorus 3.4 2.5 - 4.5 mg/dL 08/16/2019 6:39 PM [facility] Albumin 3.9 3.4 - 5.0 g/dL 08/16/2019 6:39 PM CDT [facility] Specimen Anatomical Collection Method Collection Time Receive d Time (Source) Location / / Volume Laterality Blood specimen 08/16/2019 5:57 PM 020 5:58 (specimen) CDT PM CDT Annette Alvarez APRN CARBON BRUSHER ASSEMBLER LAB - BLOOD ORDERABLES Performing Organization Address City/State/ZIP Code Phon e Number [facility] [address] [place] [phone] [facility] [address] [place], [place] [address], [facility] [phone] [facility] [address] [place] [phone], [facility] documented in this encounter Visit Diagnoses Diagnosis Uncontrolled type 1 diabetes with renal manifestation Type I (juvenile type) diabetes mellitus with renal manifestations, uncontrolled Abnormal weight gain documented in this encounter Care Teams Claims Clerk Relationship Specialty Start Date End Date Goran Lloyd PCP - General Family Practice 12/29/17 05/21/[address] [address] Annette Alvarez, Nurse Practitioner Clinical Nurse 03/22/17 10/21/20 CATALYST SUPERVISOR CARBON BRUSHER ASSEMBLER Specialist [address] [place] [address] Print Production Associate Dietitian, Registered 05/25/18 [facility] [address] [place] [address] [place] [address] documented as of this encounter
--- OUTSIDE RECORDS SUMMARY | 2022-02-24 11:07 | XMS_ITS | Encounter Summary ---
:1965 Author Organization [place] Address [address] [place] [address] Care Team Providers Name Role Phone Annette Alvarez KIM WETLANDS TECHNICIAN Unavailable Jocelyn Davidson RD Unavailable Tamar Murphy APRN WETLANDS TECHNICIAN Unavailable Nikita Gamble Primary Care Provider Reason for Visit Reason Onset Date Comments Panel Management 06/26/2020 Encounter Details Date Type Department Care Team Description 06/26/2020 [facility] Tamar Murphy APRN Panel Management [facility] [address] [address] [phone] (Wo rk) Social History Tobacco Use Types Packs/Day Years Used Date Smoking Tobacco: Never Smokeless Tobacco: Never Alcohol Use Standard Drinks/Week Comments Yes 0 (1 standard drink = 0.6 oz pure alcoho l) rare Sex Assigned at Date Recorded Female 03/04/2020 12:33 PM ADMINISTRATIVE JUDGE documented as of this encounter Miscellaneous Notes [...] Depression Total Score: 0 02/26/2020 1:30 PM ADMINISTRATIVE JUDGE documented as of this encounter Care Teams Carpentry Instructor Relationship Specialty Start Date End Date Nikita Gamble PCP - General Family Medicine 05/26/20 [facility] [address] [place] [address] Annette Alvarez, Nurse Practitioner Clinical Nurse 03/22/17 10/21/20 CARTOGRAPHIC DESIGNER WETLANDS TECHNICIAN Specialist [address] [place], [place] [phone] Jocelyn Davidson RD President & Ceo [employer] Dietitian, Registered 05/25/18 [facility] [address] [place] [address] [place] [address] Tamar Murphy APRN Assigned PCP 02/08/20 1 WETLANDS TECHNICIAN [address] [place] [address] documented as of this encounter
--- OUTSIDE RECORDS SUMMARY | 2022-02-24 11:07 | XMS_ITS | Encounter Summary ---
:1965 Author Organization [facility] Address [address] [place] [address]. [place] [address] Care Team Providers Name Role Phone Annette Alvarez APRN, CNP Unavailable [phone] Goran Lloyd Primary Care Provider Jocelyn Davidson RD Unavailable Tamar Murphy APRN JACQUARD PLATE MAKER Unavailable Reason for Referral Patient Education (Routine) - Closed Specialty Diagnoses / Procedures Referred By Contact Refer red To Contact Diabetes Education Diagnoses Controlled type 1 diabetes mellitus with chronic kidney disease, unspecified CKD stage (H) Annette Alvarez, [facility]IM [facility] [id number] [place] [phone] Referral ID Status Reason Start Date Expiration Date Visits Requ ested Visits Authorized [id number] Closed 03/05/2020 03/05/2021 1 1 CTOR CUSTOM Reason for Visit Reason Comments Diabetes Encounter Details Date Type Department Care Team Description 03/05/2020 Office [address] [facility] Annette Nuñez Controlled type 1 diabetes mellitus with chronic kidney disease, unspecified CKD stage (H) (Primary Dx); [facility] KIM Monroe CNP 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; [id number] [place] [address] [phone] Social History Tobacco Use Types Packs/Day Years Used Date Smoking Tobacco: Never Smokeless Tobacco: Never Alcohol Use Standard Drinks/Week Comments Yes 0 (1 standard drink = 0.6 oz pure alcoho l) rare Sex Assigned at Date Recorded Female 03/04/2020 12:33 PM DIRECTOR CUSTOM COVID-19 Exposure Response Date Recorded In the last month, have you been in contact with No / Unsure 03/05/2020 11:41 AM DIRECTOR CUSTOM someone who was confirmed or suspected to have Coronavirus / COVID-19? documented as of this encounter Last Filed Vital Signs Vital Sign Reading Time Taken Comments Blood Pressure 110/60 03/05/2020 12:40 PM DIRECTOR CUSTOM Pulse 70 03/05/2020 12:40 PM DIRECTOR CUSTOM Temperature 36.9 ??C (98.5 ??F) 03/05/2020 12:40 PM DIRECTOR CUSTOM Respiratory Rate - - Oxygen Saturation 97% 03/05/2020 12:40 PM DIRECTOR CUSTOM Inhaled Oxygen Concentration - - Weight - - Height - - Body Mass Index - - documented in this encounter Progress Notes Annette Alvarez APRN JACQUARD PLATE MAKER - 03/05/2020 1:30 PM CST Name: Marnie [...] times a day Previously seeing ulysses at [email or web address] 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 Basic metabolic panel ??? AMBULATORY ADULT STUDY ASSISTANT REFERRAL Radiology/Consults ordered today: More than 50% of the time spent with?Jadiel??on counseling / coordinating her??care??and discussing the above plan of care. The patient indicates understanding of the above issues and agrees withthe plan set forth. ??Total face to face??time was 25??minutes. Follow-up: 3 months with ulysses Alvarez NP Endocrinology [facility] CC: CTOR CUSTOM documented in this encounter Miscellaneous Notes Result Encounter Note - Annette Alvarez APRN CNP - 03/05/2020 1:30 PM DIRECTOR CUSTOM Marnie, As previously messaged, there was no [...] in the office. Annette Alvarez NP Endocrinology CTOR CUSTOM documented in this encounter Plan of Treatment Scheduled Referrals Name Type Priority Associated Diagnoses Order S chedule AMBULATORY ADULT Referral Routine Controlled type 1 Expect ed: STUDY ASSISTANT diabetes mellitus with 03/05/2020, Expires: REFERRAL chronic kidney disease, 11/2020 unspecified CKD stage (H) documented as of this encounter Procedures Procedure Name Priority Date/Time Associated Diagnosis Comme nts ALBUMIN RANDOM URINE Routine 03/05/2020 2:40 PM Controlled typ e 1 Results for this QUANTITATIVE DIRECTOR CUSTOM diabetes mellitus procedure are in with chronic kidney the resu lts disease, unspecified section . CKD stage (H) TSH WITH FREE T4 Routine 03/05/2020 2:39 PM Controlled type 1 Results for this REFLEX DIRECTOR CUSTOM diabetes mellitus procedure are in with chronic kidney the resu lts disease, unspecified section . CKD stage (H) LIPID REFLEX TO Routine 03/05/2020 2:39 PM Controlled type 1 R esults for this DIRECT LDL PANEL DIRECTOR CUSTOM diabetes mellitus proced ure are in with chronic kidney the resu lts disease, unspecified section . CKD stage (H) BASIC METABOLIC PANEL Routine 03/05/2020 2:39 PM Controlled ty pe 1 Results for this DIRECTOR CUSTOM diabetes mellitus procedure are in with chronic kidney the resu lts disease, unspecified section . CKD stage (H) HEMOGLOBIN A1C Routine 03/05/2020 12:14 Controlled type 1 Resu lts for this PM DIRECTOR CUSTOM diabetes mellitus procedure are in with chronic kidney the resu lts disease, unspecified section . CKD stage (H) documented in this encounter Results Albumin Random Urine Quantitative with Creat Ratio (03/05/2020 2:40 PM DIRECTOR CUSTOM) [facility] Method Time Signature Creatinine 72 mg/dL 03/06/2020 [place] Urine 8:48 AM [facility] Albumin Urine <5 mg/L 03/06/2020 [place] mg/L 8:56 AM [facility] Albumin Urine Unable to 0 - 25 03/06/2020 [place] mg/g Cr calculate due mg/g Cr 8:56 AM DIRECTOR CUSTOM CLINICS to low value [facility] Specimen Anatomical Collection Method Collection Time Receive d Time (Source) Location / / Volume Laterality Urine specimen 03/05/2020 2:40 PM 020 2:41 (specimen) DIRECTOR CUSTOM PM DIRECTOR CUSTOM Annette Alvarez WOOL PRESSER JACQUARD PLATE MAKER LAB - URINE ORDERABLES Performing Organization Address City/State/ZIP Code Phon e Number [facility] [address] [place] [address] (ABNORMAL) Basic metabolic panel (03/05/2020 2:39 PM DIRECTOR CUSTOM) [facility] Method Time Signature Sodium 139 133 - 144 03/06/2020 [place] mmol/L 11:26 AM [facility] Potassium 4.6 3.4 - 5.3 03/06/2020 [place] mmol/L 11:26 AM [facility] Chloride 108 94 - 109 03/06/2020 [place] mmol/L 11:26 AM [facility] Carbon Dioxide 25 20 - 32 03/06/2020 [facility] mmol/L 11:43 AM [facility] Anion Gap 6 3 - 14 03/06/2020 [place] mmol/L 11:43 AM [facility] Glucose 64 (L) 70 - 99 03/06/2020 [place] mg/dL 11:43 AM [facility] Urea Nitrogen 38 (H) 7 - 30 03/06/2020 [place] mg/dL 11:43 AM [facility] Creatinine 1.83 (H) 0.52 - 03/06/2020 [facility] 1.04 11:43 AM [facility] mg/dL [facility] GFR Estimate 31 (L) >60 03/06/2020 [place] mL/min/{1 11:43 AM [facility] .73_m2} HOSPITAL Comment: Non GFR Calc Starting 03/14/2018, serum creatinine ba sed estimated GFR (eGFR) will be calculated using the Chronic Kidney Dise [facility] Epidemiology Collaboration (CKD-EPI) equation. GFR Estimate If 35 (L) >60 mL/min/{1.73_m2} 03/06/2020 11 :43 AM [facility] Comment: GFR Calc Starting 03/14/2018, serum creatinine ba sed estimated GFR (eGFR) will be calculated using the Chronic Kidney Dise [facility] Epidemiology Collaboration (CKD-EPI) equation. Calcium 9.1 8.5 - 10.1 mg/dL 03/06/2020 11:43 AM [facility] Specimen Anatomical Collection Method Collection Time Receive d Time (Source) Location / / Volume Laterality Blood specimen 03/05/2020 2:39 PM 020 2:40 (specimen) DIRECTOR CUSTOM PM DIRECTOR CUSTOM Annette Alvarez WOOL PRESSER JACQUARD PLATE MAKER LAB - BLOOD ORDERABLES Performing Organization Address City/State/ZIP Code Phon e Number M [facility] [address] [phone] [facility] [address] [place], [place] [address] [facility] [address] [address], [facility] [phone] (ABNORMAL) Lipid panel reflex to direct LDL Fasting (03/05/2020 2:39 PM DIRECTOR CUSTOM) athologist Signature Cholesterol 170 <200 mg/dL 03/06/2020 [place] 11:43 AM [facility] Triglycerides 224 (H) <150 mg/dL 03/06/2020 [place] 11:43 AM [facility] Comment: Borderline high: ??150-199 mg/dl High: ? 200-499 mg/dl Very high: ? >499 mg/dl HDL Cholesterol 57 >49 mg/dL 03/06/2020 11:51 AM [facility] LDL Cholesterol 68 <100 mg/dL 03/06/2020 11:51 AM [facility] Calculated [facility] Comment: Desirable: <100 mg/dl Non HDL Cholesterol 113 <130 mg/dL 03/06/2020 11:51 AM DIRECTOR CUSTOM [facility] Specimen Anatomical Collection Method Collection Time Receive d Time (Source) Location / / Volume Laterality Blood specimen 03/05/2020 2:39 PM 020 2:40 (specimen) DIRECTOR CUSTOM PM DIRECTOR CUSTOM Annette Alvarez APRN, CNP LAB - BLOOD ORDERABLES Performing Organization Address City/[facility]/ZIP Code Phon e Number [facility] [address] [place], [place] [address] [facility] [address] [place] [address], [place] [phone] TSH with free T4 reflex (03/05/2020 2:39 PM DIRECTOR CUSTOM) athologist Signature TSH 1.97 0.40 - 4.00 03/06/2020 [facility] mU/L 11:57 AM [facility] Specimen Anatomical Collection Method Collection Time Receive d Time (Source) Location / / Volume Laterality Blood specimen 03/05/2020 2:39 PM 020 2:40 (specimen) DIRECTOR CUSTOM PM DIRECTOR CUSTOM Annette Alvarez APRN, CNP LAB - BLOOD ORDERABLES Performing Organization Address City/[facility]/ZIP Code Phon e Number [facility] [address] [place] [address] (ABNORMAL) Hemoglobin A1c (03/05/2020 12:14 PM DIRECTOR CUSTOM) athologist Signature Hemoglobin A1C 6.6 (H) 0 - 5.6 % 03/05/2020 [place] 12:36 PM DIRECTOR CUSTOM [facility] Comment: Normal <5.7% Prediabetes 5.7-6.4% ??Diab etes 6.5% or higher - adopted from ADA consensus guidelines. Specimen Anatomical Collection Method Collection Time Receive d Time (Source) Location / / Volume Laterality Blood specimen 03/05/2020 12:14 0 (specimen) PM DIRECTOR CUSTOM 12:28 PM DIRECTOR CUSTOM Annette Alvarez APRN, CNP LAB - BLOOD ORDERABLES Performing Organization Address City/[facility]/ZIP Code Phon e Number [facility] [id number] [place] [address] documented in this encounter Visit Diagnoses Diagnosis Controlled type 1 diabetes mellitus with chronic kidney disease, unspecified CKD stage (H) - Primary 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 Insulin pump in place Insulin pump status documented in this encounter Additional Health Concerns Assessment Noted Time PHQ-9 Depression Total Score: 0 02/26/2020 1:30 PM DIRECTOR CUSTOM documented as of this encounter Care Teams Development Mechanic Relationship Specialty Start Date End Date Goran Lloyd PCP - General Family Practice 12/29/17 05/21/[address] [address] Annette Alvarez, Nurse Practitioner Clinical Nurse 03/22/17 10/21/20 WOOL PRESSER JACQUARD PLATE MAKER Specialist [id number] [place] [address] Scrap Hoist Operator Dietitian, Registered 05/25/18 [facility] Kaleigh [place] [address] [place] [address] [place] [address] Tamar Murphy APRN Assigned PCP 02/08/20 1 JACQUARD PLATE MAKER [id number] [place] [phone] documented as of this encounter
--- OUTSIDE RECORDS SUMMARY | 2022-02-24 11:07 | XMS_ITS | Encounter Summary ---
:1965 Author Organization [facility] Address [facility] [place] [address] Care Team Providers Name Role Phone Annette Alvarez APRN SCREW MACHINE OPERATOR SWISS TYPE Unavailable Goran Lloyd Primary Care Provider Jocelyn Davidson Unavailable Reason for Visit Reason Onset Date Comments Forms 11/08/2019 FMLA forms Encounter Details Date Type Department Care Team Description 11/08/2019 Telephone [facility] Annette Alvarez, Forms (FMLA forms) [address] [address] [phone] (Wo rk) Social History Tobacco Use Types Packs/Day Years Used Date Smoking Tobacco: Never Smokeless Tobacco: Never Alcohol Use Standard Drinks/Week Comments Yes 0 (1 standard drink = 0.6 oz pure alcoho l) rare Sex Assigned at Date Recorded Female 03/04/2020 12:33 PM 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 I am not allowed to sign forms for the spouse of a patient. This would have to be completed by the spouse's health care provider according to our clinical nurse occupational medicine. Patient informed. Annette Alvarez NP Endocrinology Telephone [...] on filedocumented in this encounter Care Teams Chemical Detection Expert Relationship Specialty Start Date End Date Goran Lloyd PCP - General Family Practice 12/29/17 05/21/[address] [address] Annette Alvarez, Nurse Practitioner Clinical Nurse 03/22/17 10/21/20 KIM SCREW MACHINE OPERATOR SWISS TYPE Specialist [address] [place], [place] [phone] Jocelyn Davidson RD Carpenter Ship Dietitian, Registered 05/25/18 [facility] [place] [place] [address] documented as of this encounter
--- OUTSIDE RECORDS SUMMARY | 2022-02-24 11:07 | XMS_ITS | Encounter Summary ---
:1965 Author Organization [facility] Address [facility] [place] [address] Care Team Providers Name Role Phone Annette Alvarez KIM AUGER PRESS OPERATOR Unavailable [phone] Unavailable Tamar Murphy APRN AUGER PRESS OPERATOR Unavailable Nikita Gamble Primary Care Provider Reason for Referral Diagnostic Imaging XR (Routine) - Closed Specialty Diagnoses / Procedures Referred By Contact Refer red To Contact Diagnoses Positive QuantiFERON-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 Mj Tenorio MD Procedures XR Chest 1 View, [email or web address] [place], [place] [id number] 4 Referral ID Status Reason Start Date Expiration Date Visits Requ ested Visits Authorized [id number] Closed 10/15/2020 10/15/2021 1 1 Reason for Visit Diagnostic Imaging XR (Routine) - Closed Specialty Diagnoses / Procedures Referred By Contact Refer red To Contact Diagnoses Positive QuantiFERON-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 Mj Tenorio MD Procedures XR Chest 1 View, [email or web address] [id number] 4 Referral ID Status Reason Start Date Expiration Date Visits Requ ested Visits Authorized [id number] Closed 10/15/2020 10/15/2021 1 1 Encounter Details Date Type Department Care Team Description 10/15/2020 Hospital Encounter [facility] Mj Tenorio [facility] MD Olegario QuantiFERON-TB Gold [address] test [facility] 213 [address] [place], [place] [phone] [address] Social History Tobacco Use Types Packs/Day Years Used Date Smoking Tobacco: Never Smokeless Tobacco: Never Alcohol Use Standard Drinks/Week Comments Yes 0 (1 standard drink = 0.6 oz pure alcoho l) rare Sex Assigned at Date Recorded Female 03/04/2020 12:33 PM TMH TEACHER COVID-19 Exposure Response Date Recorded In the [...] hours Using T:Connect: Yes Dexcom Sharing Code: [id number] insulin syringe-needle Use 1 syringe as 20 [...] this encounter Results XR Chest 1 View, [email or web address] (10/15/2020 9:33 AM CDT) Anatomical Region Laterality [...] Depression Total Score: 0 02/26/2020 1:30 PM TMH TEACHER documented as of this encounter Care Teams Bi Specialist Relationship Specialty Start Date End Date Nikita Gamble PCP - General Family Medicine 05/26/20 [facility] [address] [place] [address] Annette Alvarez, Nurse Practitioner Clinical Nurse 03/22/17 10/21/20 HUMAN RESOURCE OFFICER AUGER PRESS OPERATOR Specialist [address] [place], [place] [phone] Jocelyn Davidson RD Machine Sorter Dietitian, Registered 05/25/18 [facility] [address]LA [address] [place] [address] Tamar Murphy APRN Assigned PCP 02/08/20 1 AUGER PRESS OPERATOR [address] [place], [place] [phone] documented as of this encounter
--- OUTSIDE RECORDS SUMMARY | 2022-02-24 11:07 | XMS_ITS | Encounter Summary ---
:1965 Author Organization [facility] Address [address] [place] [address]. [place] [address] Care Team Providers Name Role Phone Annette Alvarez APRN GLASS OR MIRROR INSPECTOR Unavailable [phone] Goran Lloyd Primary Care Provider Jocelyn Davidson RD Unavailable Reason for Referral Diagnostic Imaging XR (Routine) - Closed Specialty Diagnoses / Procedures Referred By Contact Refer red To Contact Radiology. Diagnoses Positive QuantiFERON-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 Mj Tenorio MD Rh Xray Procedures XR Chest 1 View, [employer] [address] [employer] [place] [address] [address] [address] [place] [address] Phone: Fax: Referral ID Status Reason Start Date Expiration Date Visits Requ ested Visits Authorized [id number] Closed 08/24/2019 08/23/2020 1 1 Reason for Visit Diagnostic Imaging XR (Routine) - Closed Specialty Diagnoses / Procedures Referred By Contact Refer red To Contact Radiology. Diagnoses Positive QuantiFERON-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 Mj Tenorio MD Rh Xray Procedures XR Chest 1 View, [employer] [address] [address] [address] [place] [address] Phone: Fax: Referral ID Status Reason Start Date Expiration Date Visits Requ ested Visits Authorized [id number] Closed 08/24/2019 08/23/2020 1 1 Encounter Details Date Type Department Care Team Description 08/24/2019 Hospital Encounter [facility] Mj Tenorio Positive [facility] MD Olegario QuantiFERON-TB Gold [address] [facility] [address] test [facility] [address] [place], [place] [phone] Social History Tobacco Use Types Packs/Day Years Used Date Smoking Tobacco: Never Smokeless Tobacco: Never Alcohol Use Standard Drinks/Week Comments Yes 0 (1 standard drink = 0.6 oz pure alcoho l) rare Sex Assigned at Date Recorded Female 03/04/2020 12:33 PM APPLIED PSYCHOLOGY TEACHER COVID-19 Exposure Response Date Recorded In [...] hours Using T:Connect: Yes Dexcom Sharing Code: [id number] insulin syringe-needle Use 1 syringe as 20 [...] osis documented in this encounter Care Teams Cushion Installer Relationship Specialty Start Date End Date Goran Lloyd PCP - General Family Practice 12/29/17 05/21/[address] [address] Annette Alvarez, Nurse Practitioner Clinical Nurse 03/22/17 10/21/20 R PROGRAMMER GLASS OR MIRROR INSPECTOR Specialist [address] [place], [place] [phone] Jocelyn Davidson RD Preservationist Dietitian, Registered 05/25/18 [facility] [address] [place] [address] [place] [address] documented as of this encounter
--- OUTSIDE RECORDS SUMMARY | 2022-02-24 11:07 | XMS_ITS | Encounter Summary ---
:1965 Author Organization [facility] Address [address] [facility] [place] [address] Care Team Providers Name Role Phone Annette Alvarez KIM AUTOMATIC CASTING MACHINE OPERATOR Unavailable [phone] Goran Lloyd Primary Care Provider Jocelyn Davidson RD Unavailable Tamar Murphy APRN AUTOMATIC CASTING MACHINE OPERATOR Unavailable Reason for Visit Diagnostic Imaging XR (Routine) - Closed Specialty Diagnoses / Procedures Referred By Contact Refer red To Contact Diagnoses Cough Tamar Murphy APRN CNP Procedures XR Chest 2 Views [address] [place], [place] [address] Referral ID Status Reason Start Date Expiration Date Visits Requ ested Visits Authorized [id number] Closed 02/26/2020 02/25/2021 1 1 Encounter Details Date Type Department Care Team Description 02/26/2020 Ancillary Procedure [facility] Tamar Murphy Trilla APRN AUTOMATIC CASTING MACHINE OPERATOR [address] [facility] [address] [place] [address] [phone] Social History Tobacco Use Types Packs/Day Years Used Date Smoking Tobacco: Never Smokeless Tobacco: Never Alcohol Use Standard Drinks/Week Comments Yes 0 (1 standard drink = 0.6 oz pure alcoho l) rare Sex Assigned at Date Recorded Female 03/04/2020 12:33 PM UPHOLSTERER LIMOUSINE AND HEARSE COVID-19 Exposure Response Date Recorded In the last month, have you been in contact with No / Unsure 02/03/2020 12:21 PM UPHOLSTERER LIMOUSINE AND HEARSE someone who was confirmed or suspected to have Coronavirus / COVID-19? documented as of this encounter Plan of Treatment Not on filedocumented as of this encounter Procedures Procedure Name Priority Date/Time Associated Diagnosis Comme nts XR CHEST 2 VIEWS Routine 02/26/2020 2:12 PM Cough Resul ts for this UPHOLSTERER LIMOUSINE AND HEARSE procedure are i n the results section. documented in this encounter Results XR Chest 2 Views (02/26/2020 2:12 PM UPHOLSTERER LIMOUSINE AND HEARSE) Anatomical Region Laterality Modality Chest Computed Radiography Specimen (Source) Anatomical Location Collection Method / Collectio n Time Received Time / Laterality Volume Impressions 02/26/2020 2:25 PM UPHOLSTERER LIMOUSINE AND HEARSE IMPRESSION: PA and lateral views of the chest. Lungs are clear. Heart is normal in size. No effusions are evid ent. No pneumothorax. Degenerative spine changes are noted. Ol d healed lateral right upper rib fractures and mid left rib fractures are again noted. TONIO CRANE MD Narrative 02/26/2020 2:25 PM UPHOLSTERER LIMOUSINE AND HEARSE CHEST TWO VIEWS ??02/26/2020 2:12 PM HISTORY: [...] noted. TONIO CRANE MD Tamar Murphy APRN AUTOMATIC CASTING MACHINE OPERATOR IMG DIAGNOSTIC IMAGING ORDER DEJUAN documented in this encounter Visit Diagnoses Not on filedocumented in this encounter Additional Health Concerns Infection Onset Date Last Indicated Resolved Time Rule Out COVID-19 02/26/2020 02/26/2020 02/27/2020 4:3 2 PM UPHOLSTERER LIMOUSINE AND HEARSE Assessment Noted Time PHQ-9 Depression Total Score: 0 02/26/2020 1:30 PM UPHOLSTERER LIMOUSINE AND HEARSE documented as of this encounter Care Teams Site Acquisition Specialist Relationship Specialty Start Date End Date Goran Lloyd PCP - General Family Practice 12/29/17 05/21/[address] [address] Annette Alvarez, Nurse Practitioner Clinical Nurse 03/22/17 10/21/20 POWDER CORE TESTER AUTOMATIC CASTING MACHINE OPERATOR Specialist [address] [place], [place] [phone] Jocelyn Davidson RD Front Office Administrator Dietitian, Registered 05/25/18 [facility] [place] [address] Tamar Murphy APRN Assigned PCP 02/08/20 1 AUTOMATIC CASTING MACHINE OPERATOR [address] [place] [address] documented as of this encounter
--- OUTSIDE RECORDS SUMMARY | 2022-02-24 11:07 | XMS_ITS | Encounter Summary ---
:1965 Author Organization [place] Address [address] [facility] [place] [address] Care Team Providers Name Role Phone Annette Alvarezmamadou ALVAREZ OCEANOGRAPHER GEOLOGICAL Unavailable Jocelyn Davidson RD Unavailable Tamar Murphy APRN OCEANOGRAPHER GEOLOGICAL Unavailable Nikita Gamble Primary Care Provider Reason for Visit Reason Onset Date Comments Hypoglycemia 07/28/2020 Encounter Details Date Type Department Care Team Description 07/28/2020 Telephone [facility] Tamar Murphy APRN Hypoglycemia [place] [phone] [place] [address] (Wo rk) Social History Tobacco Use Types Packs/Day Years Used Date Smoking Tobacco: Never Smokeless Tobacco: Never Alcohol Use Standard Drinks/Week Comments Yes 0 (1 standard drink = 0.6 oz pure alcoho l) rare Sex Assigned at Date Recorded Female 03/04/2020 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 Patient with repeated wording and inconsistent with conversation. Patient's CGM checked and was at 70. Patient given personal glucose drink, Mt Dew, and glucose drinkfrom lab of 150 mg of glucose. veterinary assistant technician called to room to check glucose [...] strong recommendations against it. Tamar Murphy APRN OCEANOGRAPHER GEOLOGICAL on 07/28/2020 at 6:04 PM documented in this encounter Plan of Treatment Not on filedocumented as of this encounter Visit Diagnoses Not on filedocumented in this encounter Additional Health Concerns Assessment Noted Time PHQ-9 Depression Total Score: 0 02/26/2020 1:30 PM HIRE CAR DRIVER documented as of this encounter Care Teams Multiple Spindle Screw Machine Operator Relationship Specialty Start Date End Date Nikita Gamble PCP - General Family Medicine 05/26/20 [facility] [address] [place] [address] Annette Alvarez, Nurse Practitioner Clinical Nurse 03/22/17 10/21/20 CONTRACT SHELTERED WORKSHOP SUPERVISOR OCEANOGRAPHER GEOLOGICAL Specialist [address] [place] [address] Housekeeper Nanny Dietitian, Registered 05/25/[address] [place] [address] Tamar Murphy APRN Assigned PCP 02/08/2011/15/ 1 OCEANOGRAPHER GEOLOGICAL [address] [place], [place] [id number] documented as of this encounter
--- OUTSIDE RECORDS SUMMARY | 2022-02-24 11:07 | XMS_ITS | Encounter Summary ---
:1965 Author Organization [place] Address [address] [facility] [place] [address] Care Team Providers Name Role Phone Annette Alvarez KIM RODRIGUEZ Unavailable [phone] Goran Lloyd Primary Care Provider Jocelyn Davidson RD Unavailable Tamar Murphy APRN CANAL TENDER Unavailable Reason for Referral Diagnostic Imaging XR (Routine) - Closed Specialty Diagnoses / Procedures Referred By Contact Refer red To Contact Diagnoses Cough Tamar Murphy APRN CNP Procedures XR Chest [address] [place] [phone] Referral ID Status Reason Start Date Expiration Date Visits Requ ested Visits Authorized [id number] Closed 02/26/2020 02/25/2021 1 1 . JAVA DEVELOPER Reason for Visit Reason Comments Cough Encounter Details Date Type Department Care Team Description 02/26/2020 Office Visit [facility] Tamar Murphy Cough (Primary Dx) [place] KIM CANAL TENDER [address] [phone] Social History Tobacco Use Types Packs/Day Years Used Date Smoking Tobacco: Never Smokeless Tobacco: Never Alcohol Use Standard Drinks/Week Comments Yes 0 (1 standard drink = 0.6 oz pure alcoho l) rare Sex Assigned at Date Recorded Female 03/04/2020 12:33 PM JR. JAVA DEVELOPER COVID-19 Exposure Response Date Recorded In the last month, have you been in contact with No / Unsure 02/03/2020 12:21 PM JR. JAVA DEVELOPER someone who was confirmed or suspected to have Coronavirus / COVID-19? documented as of this encounter Last Filed Vital Signs Vital Sign Reading Time Taken Comments Blood Pressure 138/70 02/26/2020 1:22 PM JR. JAVA DEVELOPER Pulse 67 02/26/2020 1:22 PM JR. JAVA DEVELOPER Temperature 37 ??C (98.6 ??F) 02/26/2020 1:22 PM JR. JAVA DEVELOPER Respiratory Rate 19 02/26/2020 1:31 PM JR. JAVA DEVELOPER Oxygen Saturation 96% 02/26/2020 1:22 PM JR. JAVA DEVELOPER Inhaled Oxygen Concentration - - Weight 113.4 kg (250 lb) 02/26/2020 1:22 PM JR. JAVA DEVELOPER Height 180.3 cm (5' 11) 02/26/2020 1:22 PM JR. JAVA DEVELOPER Body Mass Index 34.87 02/26/2020 1:22 PM JR. JAVA DEVELOPER documented in this encounter Patient Instructions Patient InstructionsGiTamar alston APRN CNP - 02/26/2020 1:30 PM CST Prednisone 2 tabs (40 mg) once daily x 5 days. No NSAID use while using prednisone (Advil, ibuprofen, naproxen, Aleve) Consider nasal irrigation (Rodman Pot) Benzonatate 1 tab two times per day as needed for cough. . JAVA DEVELOPER documented in this encounter Progress Notes Tamar [...] (Advil, ibuprofen, naproxen, Aleve) Consider nasal irrigation (Rodman Pot) Benzonatate 1 tab two times per day as needed for cough. Return in about 2 weeks (around 03/11/2020) for if not improved. . Tamra Murphy APRN CNP [facility] . JAVA DEVELOPER documented in this encounter Plan of Treatment Not on filedocumented as of this encounter Procedures Procedure Name Priority Date/Time Associated Diagnosis Comme nts XR CHEST 2 VIEWS Routine 02/26/2020 2:12 PM Cough Resul ts for this JR. JAVA DEVELOPER procedure are i n the results section. COVID-19 VIRUS Routine 02/26/2020 1:00 PM Cough Results for this (CORONAVIRUS) BY JR. JAVA DEVELOPER procedure a re in PCR the results section. documented in this encounter Results XR Chest 2 Views (02/26/2020 2:12 PM JR. JAVA DEVELOPER) Anatomical Region Laterality Modality Chest Computed Radiography Specimen (Source) Anatomical Location Collection Method / Collectio n Time Received Time / Laterality Volume Impressions 02/26/2020 2:25 PM JR. JAVA DEVELOPER IMPRESSION: PA and lateral views of the chest. Lungs are clear. Heart is normal in size. No effusions are evid ent. No pneumothorax. Degenerative spine changes are noted. Ol d healed lateral right upper rib fractures and mid left rib fractures are again noted. TONIO CRANE MD Narrative 02/26/2020 2:25 PM JR. JAVA DEVELOPER CHEST TWO VIEWS ??02/26/2020 2:12 PM HISTORY: [...] Virus (Coronavirus) by PCR (02/26/2020 1:00 PM JR. JAVA DEVELOPER) [facility] Method Time Signature COVID-19 Nasopharyngeal 02/26/2020 [facility] Virus PCR to 3:08 PM JR. JAVA DEVELOPER [facility] Source COVID-19 Not Detected 02/27/2020 [facility] Virus PCR to 4:31 PM JR. JAVA DEVELOPER [facility] Result LABORATORY, [facility] Comment: Collection of multiple specimens from [...] and amplified using the HDPCR SARS-CoV-2 assay (ADmantX.). The HDPCRTM JAYDEN S-CoV-2 assay is a reverse head of stock real-time polymerase chain reaction (qRT-PCR) test intended [...] (Centers for Disease Control) Testing performed by [facility] ([facility]) [address] [facility] [address] [facility] [address] The test performance characteristics wer e determined [...] Specimen from 02/26/2020 1:00 02/26/2020 nasopharyngeal PM JR. JAVA DEVELOPER 3:08 PM JR. JAVA DEVELOPER structure (specimen) Tamar Murphy APRN CANAL TENDER LAB - MICRO GENERAL ORDERABL ES Performing Organization Address City/State/ZIP Code Phon e Number [place] [address] DIAGNOSTIC LABORATORY, [address] [facility] [address] [address] [place] documented in this encounter Visit Diagnoses Diagnosis Cough - Primary documented in this encounter Additional Health Concerns Infection Onset Date Last Indicated Resolved Time Rule Out COVID-19 02/26/2020 02/26/2020 02/27/2020 4:3 2 PM JR. JAVA DEVELOPER Assessment Noted Time PHQ-9 Depression Total Score: 0 02/26/2020 1:30 PM JR. JAVA DEVELOPER documented as of this encounter Care Teams Freelance Photographer Relationship Specialty Start Date End Date Goran Lloyd PCP - General Family Practice 12/29/17 05/21/[address] [address] nAnette Alvarez, Nurse Practitioner Clinical Nurse 03/22/17 10/21/20 PAYROLL ADMINISTRATIVE ASSISTANT CANAL TENDER Specialist [address] [place] [address] Machine Hose Cutter Dietitian, Registered 05/25/18 [facility] [address] [place] [address] SHARAN CARSON [id number] Tamar Murphy APRN Assigned PCP 02/08/20 1 CANAL TENDER [address] [place] [address] documented as of this encounter
--- OUTSIDE RECORDS SUMMARY | 2022-02-24 11:07 | XMS_ITS | Encounter Summary ---
:1965 Author Organization [place] Address [address] [facility] [place] [address] Care Team Providers Name Role Phone Annette Alvarez APRN HANDTOOLS REPAIRER Unavailable [phone] Goran Lloyd Primary Care Provider Jocelyn Davidson RD Unavailable Reason for Visit Reason Onset Date Comments Diabetes 02/19/2019 High Blood Sugars Encounter Details Date Type Department Care Team Description 02/19/2019 Telephone [facility] Jocelyn Davidson RD Diabetes (High Blood Clinic [facility] Sugars) [address] [place] [id number] [phone] Social History Tobacco Use Types Packs/Day Years Used Date Smoking Tobacco: Never Smokeless Tobacco: Never Alcohol Use Standard Drinks/Week Comments Yes 0 (1 standard drink = 0.6 oz pure alcoho l) rare Sex Assigned at Date Recorded Female 03/04/2020 12:33 PM SQL DBA documented as of this encounter Miscellaneous Notes Telephone Encounter - Jocelyn Davidson RD - 02/23/2019 8:25 AM CST See phone encounter 02/21. Jocelyn Davidson RD, CDE Diabetes Mixing Machine Operator DBA Telephone Encounter - Jaqui Logan RD - [...] Tuesday. Jaqui Logan MS, RD, LD, CDE DBA Telephone Encounter - Goran [place] - 02/19/2019 8:46 AM CST Patient having very high numbers that are not registering on meter. As well as multiple Ketones. Hasbeen going on since Tuesday. Please call to discuss. DBA documented in this encounter Plan of Treatment Not on filedocumented as of this encounter Visit Diagnoses Not on filedocumented in this encounter Care Teams Fish Culturist Relationship Specialty Start Date End Date Goran Lloyd PCP - General Family Practice 12/29/17 05/21/20 [facility] [address] [place] [address] Annette Alvarez, Nurse Practitioner Clinical Nurse 03/22/17 10/21/20 LIFE INSURANCE UNDERWRITER HANDTOOLS REPAIRER Specialist [address] [place] [address] Central Supply Clerk Dietitian, Registered 05/25/18 [facility] [place] [address] [address] documented as of this encounter
--- OUTSIDE RECORDS SUMMARY | 2022-02-24 11:07 | XMS_ITS | Encounter Summary ---
:1965 Author Organization [place] Address [address] [place] [address]. [place] [address] Care Team Providers Name Role Phone Annette Alvarez POST EXCHANGE MANAGER TECHNOLOGIES DIVISION CHAIR Unavailable [phone] Goran Lloyd Primary Care Provider Jocelyn Davidson RD Unavailable Encounter Details Date Type Department Care Team Description 08/24/2019 Travel Social History Tobacco Use Types Packs/Day Years Used Date Smoking Tobacco: Never Smokeless Tobacco: Never Alcohol Use Standard Drinks/Week Comments Yes 0 (1 standard drink = 0.6 oz pure alcoho l) rare Sex Assigned at Date Recorded Female 03/04/2020 12:33 PM CASKET COVERER COVID-19 Exposure Response Date Recorded In the last month, have you been in contact with No / Unsure 08/24/2019 3:39 PM CDT someone who was confirmed or suspected to have Coronavirus / COVID-19? documented as of this encounter Plan of Treatment Not on filedocumented as of this encounter Visit Diagnoses Not on filedocumented in this encounter Care Teams Belt Lacer Relationship Specialty Start Date End Date Goran Lloyd PCP - General Family Practice 12/29/17 05/21/[address] [address] Annette Alvarez, Nurse Practitioner Clinical Nurse 03/22/17 10/21/20 POST EXCHANGE MANAGER TECHNOLOGIES DIVISION CHAIR Specialist [address] [place] [address] Handkerchief Sample Clerk Dietitian, Registered 05/25/18 [facility] [address] [id number] documented as of this encounter
--- OUTSIDE RECORDS SUMMARY | 2022-02-24 11:07 | XMS_ITS | Encounter Summary ---
:1965 Author Organization [place] Address [address] [facility] [place] [address] Care Team Providers Name Role Phone Lashae Alvarez APRN, CNP Unavailable [phone] Goran Lloyd Primary Care Provider Jocelyn Davidson RD Unavailable Reason for Visit Reason Comments Diabetes Thyroid Problem Encounter Details Date Type Department Care Team Description 04/16/2019 Office Visit [facility] Lashae Alvarez Uncontrolshilpa ed type 1 diabetes with renal manifestation (H) (Primary Dx); [facility] [place] KIM Monroe CNP Type 1 diabetes mellitus with complicati ons (H); [id number] [facility] [id number] [place] [address] Uncontrolled type 1 diabetes mellitus wi th stage 3 chronic kidney disease (H); [place], [place] PCOS (p olycystic ovarian syndrome); [id number] Flatulence, eructation, and gas pain; [phone] Hypothyroidism due to acquired atrophy of thyroid; (Work) Abnormal weight gain Social History Tobacco Use Types Packs/Day Years Used Date Smoking Tobacco: Never Smokeless Tobacco: Never Alcohol Use Standard Drinks/Week Comments Yes 0 (1 standard drink = 0.6 oz pure alcoho l) rare Sex Assigned at Date Recorded Female 03/04/2020 12:33 PM CASINO RUNNER documented as of this encounter Last Filed Vital Signs Vital Sign Reading Time Taken Comments Blood Pressure 120/68 04/16/2019 1:18 PM CASINO RUNNER Pulse 76 04/16/2019 11:28 AM CASINO RUNNER Temperature 36.8 ??C (98.2 ??F) 04/16/2019 11:28 AM CASINO RUNNER Respiratory Rate - - Oxygen Saturation 94% 04/16/2019 11:28 AM CASINO RUNNER Inhaled Oxygen Concentration - - Weight 113.4 kg (250 lb) 04/16/2019 11:28 AM CASINO RUNNER Height - - Body Mass Index 34.38 [...] done if necessary. We appreciate your understanding. 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 Intimate partner violence: Fear of current or ex partner: Not on file Emotionally abused: Not on file Physically abused: Not on file Forced sexual activity: Not on file Other Topics Concern ??? Parent/sibling w/ CABG, OR or angioplasty before 65F 55M? Not Asked [...] More than 50% of the time spent with??Ms.??[place]??on counseling / coordinating her??care??and discussing the above plan of care. The patient indicates understanding of the above issues and agrees withthe plan set forth. ??Total face to face??time was 25??minutes. Follow-up: 3 months Lashae Alvarez NP Endocrinology [facility] CC: NO RUNNER documented in this encounter Miscellaneous Notes Result Encounter Note - Lashae Alvarez APRN CNP - 04/16/2019 11:30 AM CASINO RUNNER Marnie, Your thyroid labs are in normal [...] you have questions. Lashae Alvarez NP Endocrinology NO RUNNER Addendum Note - Lashae Alvarez APRN CNP - 04/16/2019 11:30 AM CASINO RUNNER Addended by: LASHAE ALVAREZ on: 04/18/2019 06:22 AM Modules accepted: Orders NO RUNNER documented in this encounter Plan of Treatment Not on filedocumented as of this encounter Procedures Procedure Name Priority Date/Time Associated Diagnosis Comme nts BASIC METABOLIC PANEL Routine 04/16/2019 11:27 Type 1 diabetes Results for this AM CASINO RUNNER mellitus with procedure are in complications (H) the result s section. TSH WITH FREE T4 Routine 04/16/2019 11:26 Uncontrolled type 1 Results for this REFLEX AM CASINO RUNNER diabetes with renal procedur e are in manifestation (H) the result s section. ALBUMIN RANDOM URINE Routine 04/16/2019 11:26 Uncontrolled typ e 1 Results for this QUANTITATIVE AM CASINO RUNNER diabetes with renal procedur e are in manifestation (H) the result s section. HEMOGLOBIN A1C Routine 04/16/2019 11:26 Uncontrolled type 1 Re sults for this AM CASINO RUNNER diabetes with renal procedur e are in manifestation (H) the result s section. documented in this encounter Results (ABNORMAL) Renal panel (Alb, BUN, Ca, Cl, CO2, Creat, Gluc, Phos, K, Na) (08/16/2019 5:57 PM CDT) Analysis Performed At Patho logist Time Signature Sodium 136 133 - 144 08/16/2019 [facility] mmol/L 6:32 PM [facility] Potassium 4.6 3.4 - 5.3 08/16/2019 [facility] mmol/L 6:32 PM [facility] Chloride 107 94 - 109 08/16/2019 [facility] mmol/L 6:32 PM [facility] Carbon Dioxide 24 20 - 32 08/16/2019 [facility] mmol/L 6:39 PM [facility] Anion Gap 5 3 - 14 08/16/2019 [facility] mmol/L 6:39 PM [facility] Glucose 166 (H) 70 - 99 08/16/2019 [facility] mg/dL 6:39 PM [facility] Urea Nitrogen 21 7 - 30 08/16/2019 [facility] mg/dL 6:39 PM [facility] Creatinine 1.41 (H) 0.52 - 08/16/2019 [facility] 1.04 mg/dL 6:39 PM [facility] GFR Estimate 42 (L) >60 08/16/2019 [facility] mL/min/{1. 6:39 PM [facility] 73_m2} [facility]OSP[facility] Comment: Non GFR Calc Starting 03/14/2018, serum creatinine ba sed estimated GFR (eGFR) will be calculated using the Chronic Kidney Dise [facility] Epidemiology Collaboration (CKD-EPI) equation. GFR Estimate If 49 (L) >60 mL/min/{1.73_m2} 08/16/2019 6: 39 PM [facility] Comment: GFR Calc Starting 03/14/2018, serum creatinine ba sed estimated GFR (eGFR) will be calculated using the Chronic Kidney Dise [facility] Epidemiology Collaboration (CKD-EPI) equation. Calcium 9.0 8.5 - 10.1 mg/dL 08/16/2019 6:39 PM CDT [facility] Phosphorus 3.4 2.5 - 4.5 mg/dL 08/16/2019 6:39 PM CDT [facility] Albumin 3.9 3.4 - 5.0 g/dL 08/16/2019 6:39 PM CDT [facility] Specimen Anatomical Collection Method Collection Time Receive d Time (Source) Location / / Volume Laterality Blood specimen 08/16/2019 5:57 PM 020 5:58 (specimen) CDT PM CDT Lashae Alvarez APRN, CNP LAB - BLOOD ORDERABLES Performing Organization Address City/[facility]/ZIP [facility] Phon e Number M [facility] [address] [place] [address] [facility] [address] [place], [place] [address], [facility] [phone] [address], [facility] [phone] [facility] Cortisol (08/16/2019 5:57 PM CDT) athologist Signature Cortisol Serum 14.2 4 - 22 08/16/2019 [facility] ug/dL 10:27 PM CDT [facility] Comment: 8 AM Cortisol Reference Range = 4-22 ug/ dL 4 PM Cortisol Reference Range = 3-17 ug/ dL Specimen Anatomical Collection Method Collection Time Receive d Time (Source) Location / / Volume Laterality Blood specimen 08/16/2019 5:57 PM 020 5:58 (specimen) CDT PM CDT Lashae Alvarez APRN, CNP LAB - BLOOD ORDERABLES Performing Organization Address City/State/ZIP Code Phon e Number [facility] [address] [place] [address] [facility] (ABNORMAL) Basic metabolic panel (04/16/2019 11:27 AM CASINO RUNNER) [facility] Method Time Signature Sodium 137 133 - 144 04/17/2019 [facility] mmol/L 7:36 AM [facility] Potassium 4.4 3.4 - 5.3 04/17/2019 [facility] mmol/L 7:36 AM [facility] Chloride 106 94 - 109 04/17/2019 [facility] mmol/L 7:36 AM [facility] Carbon Dioxide 27 20 - 32 04/17/2019 [facility] mmol/L 7:41 AM [facility] Anion Gap 4 3 - 14 04/17/2019 [facility] mmol/L 7:41 AM [facility] Glucose 219 (H) 70 - 99 04/17/2019 [facility] mg/dL 7:41 AM [facility] Urea Nitrogen 31 (H) 7 - 30 04/17/2019 [facility] mg/dL 7:41 AM [facility] Creatinine 1.64 (H) 0.52 - 04/17/2019 [facility] 1.04 7:41 AM [facility] mg/dL [facility] GFR Estimate 35 (L) >60 04/17/2019 [facility] mL/min/{1 7:41 AM [facility] .73_m2} [facility] Comment: Non GFR Calc Starting 03/14/2018, serum creatinine ba sed estimated GFR (eGFR) will be calculated using the Chronic Kidney Dise [facility] Epidemiology Collaboration (CKD-EPI) equation. GFR Estimate If 41 (L) >60 mL/min/{1.73_m2} 04/17/2019 7:41 AM [facility] Comment: GFR Calc Starting 03/14/2018, serum creatinine ba sed estimated GFR (eGFR) will be calculated using the Chronic Kidney Dise [facility] Epidemiology Collaboration (CKD-EPI) equation. Calcium 10.3 (H) 8.5 - 10.1 mg/dL 04/17/2019 7:41 AM [facility] Specimen Anatomical Collection Method Collection Time Receive d Time (Source) Location / / Volume Laterality Blood specimen 04/16/2019 11:27 0 1:14 (specimen) AM CASINO RUNNER PM CASINO RUNNER Lashae Alvarez APRN AVIATION TACTICAL READINESS OFFICER LAB - BLOOD ORDERABLES Performing Organization Address City/[facility]/ZIP Code Phon e Number [facility] [address], [place] [address] TSH with free T4 reflex (04/16/2019 11:26 AM CASINO RUNNER) athologist Signature TSH 1.18 0.40 - 4.00 04/17/2019 [facility] mU/L 8:[address] [facility] Specimen Anatomical Collection Method Collection Time Receive d Time (Source) Location / / Volume Laterality Blood specimen 04/16/2019 11:26 0 (specimen) AM CASINO RUNNER 11:27 AM CASINO RUNNER Lashae Alvarez APRN AVIATION TACTICAL READINESS OFFICER LAB - BLOOD ORDERABLES Performing Organization Address City/[facility]/ZIP Code Phon e Number [facility] [address] [place] [id number] Albumin Random Urine Quantitative with Creat Ratio (04/16/2019 11:26 AM CASINO RUNNER) athologist Signature Creatinine 121 mg/dL 04/17/2019 [facility] Urine 7:03 AM [facility] Albumin Urine 10 mg/L 04/17/2019 [facility] mg/L 7:14 AM [facility] Albumin Urine 7.86 0 - 25 04/17/2019 [facility] mg/g Cr mg/g Cr 7:14 AM [facility] Specimen Anatomical Collection Method Collection Time Receive d Time (Source) Location / / Volume Laterality Urine specimen 04/16/2019 11:26 0 (specimen) AM CASINO RUNNER 11:27 AM CASINO RUNNER Lashae Alvarez APRN AVIATION TACTICAL READINESS OFFICER LAB - URINE ORDERABLES Performing Organization Address City/[facility]/ZIP Code Phon e Number [facility] [address] [place] [address] (ABNORMAL) Hemoglobin A1c (04/16/2019 11:26 AM CASINO RUNNER) athologist Signature Hemoglobin A1C 7.4 (H) 0 - 5.6 % 04/16/2019 [facility] [place] 11:42 AM CASINO RUNNER [facility] Comment: Normal <5.7% Prediabetes 5.7-6.4% ??Diab etes 6.5% or higher - adopted from ADA consensus guidelines. Specimen Anatomical Collection Method Collection Time Receive d Time (Source) Location / / Volume Laterality Blood specimen 04/16/2019 11:26 0 (specimen) AM CASINO RUNNER 11:27 AM CASINO RUNNER Lashae Alvarez PRINTING PLATE CLERK AVIATION TACTICAL READINESS OFFICER LAB - BLOOD ORDERABLES Performing Organization Address City/State/ZIP Code Phon e Number [facility] [address] [place] [address] documented in this encounter Visit Diagnoses Diagnosis [...] gain documented in this encounter Care Teams Preparation Room Manager Relationship Specialty Start Date End Date Goran Lloyd PCP - General Family Practice 12/29/17 05/21/[address] [address] Lashae Alvarez, Nurse Practitioner Clinical Nurse 03/22/17 10/21/20 PRINTING PLATE CLERK AVIATION TACTICAL READINESS OFFICER Specialist [address] [place] [address] Management Recruiter Dietitian, Registered 05/25/[address] [facility] [place] [address] documented as of this encounter
--- OUTSIDE RECORDS SUMMARY | 2022-02-24 11:07 | XMS_ITS | Encounter Summary ---
:1965 Author Organization [place] Address [address] [place] [address] Care Team Providers Name Role Phone Annette Alvarez APRN SOLID PROPELLANT PROCESSOR Unavailable Jocelyn Davidson RD Unavailable Tamar Murphy MANAGER OF CHANGE SOLID PROPELLANT PROCESSOR Unavailable Nikita Gamble Primary Care Provider Naveen Casiano MD Unavailable Harlan Lin MD Unavailable Unavailable Mikki Blevins MD Unavailable Mikki Blevins MD Unavailable Mindi Llanes PA-C Unavailable Reason for Visit Reason Comments Medication Refill Encounter Details Date Type Department Care Team Description 06/05/2020 Refill [facility] Annette Alvarez, Medication Refill [place] MANAGER OF CHANGE SOLID PROPELLANT PROCESSOR [id number] [place], [place] [phone] [place] [address] (Wo rk) Social History Tobacco Use Types Packs/Day Years Used Date Smoking Tobacco: Never Smokeless Tobacco: Never Alcohol Use Standard Drinks/Week Comments Yes 0 (1 standard drink = 0.6 oz pure alcoho l) rare Sex Assigned at Date Recorded Female 03/04/2020 12:33 PM UTILITY CLERK documented as of this encounter Miscellaneous Notes Telephone Encounter - Jasmyn Lee RN - 06/05/2020 11:52 AM CST Prescription approved per [facility] Refill Protocol. Jasmyn Lee RN [facility] -- Triage Nurse ITY CLERK documented in this encounter Plan of Treatment Not on filedocumented as of this encounter Visit Diagnoses Diagnosis 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 documented in this encounter Additional Health Concerns Assessment Noted Time PHQ-9 Depression Total Score: 0 02/26/2020 1:30 PM UTILITY CLERK documented as of this encounter Care Teams Pattern Keeper Relationship Specialty Start Date End Date Nikita Gamble PCP - General Family Medicine 05/26/20 [facility] [address] [place] [address] Annette Alvarez, Nurse Practitioner Clinical Nurse 03/22/17 10/21/20 MANAGER OF CHANGE SOLID PROPELLANT PROCESSOR Specialist [address] [place] [address] Roller Skate Assembler Dietitian, Registered 05/25/18 [facility] [address] [place] [address] Tamar Murphy, Assigned PCP 02/08/20 11/15/20 MANAGER OF CHANGE SOLID PROPELLANT PROCESSOR [address] [place] [address] Naeven Casiano MD Assigned PCP 11/16/20 [address] [place], [place] [phone] Harlan Lin Assigned Endocrinology 12/07/20 08/01/21 MD [facility] Provider NO INFO AVAILABLE Mikki Blevins MD MD Endocrinology, 05/07/[address] [place] [address] Diabetes, and [place], [place] Metabolism [address] Mikki Blevins MD Assigned Endocrinology 08/02/21 [facility] Provider [facility] [place], [place] [phone] Mindi Llanes Assigned Surgical 09/26/21 [facility] Provider [address] [place] [address] documented as of this encounter
--- OUTSIDE RECORDS SUMMARY | 2022-02-24 11:07 | XMS_ITS | Encounter Summary ---
:1965 Author Organization [place] Address [address] [place] [address]. [place] [address] Care Team Providers Name Role Phone Annette Alvarez HEALTH INFORMATICS SPECIALIST MAIL DELIVERY SUPERVISOR Unavailable [phone] Goran Lloyd Primary Care Provider Jocelyn Davidson RD Unavailable Tamar Murphy HEALTH INFORMATICS SPECIALIST MAIL DELIVERY SUPERVISOR Unavailable Encounter Details Date Type Department Care Team Description 03/05/2020 Travel Social History Tobacco Use Types Packs/Day Years Used Date Smoking Tobacco: Never Smokeless Tobacco: Never Alcohol Use Standard Drinks/Week Comments Yes 0 (1 standard drink = 0.6 oz pure alcoho l) rare Sex Assigned at Date Recorded Female 03/04/2020 12:33 PM CURTAIN CUTTER HAND COVID-19 Exposure Response Date Recorded In the last month, have you been in contact with No / Unsure 03/05/2020 11:41 AM CURTAIN CUTTER HAND someone who was confirmed or suspected to have Coronavirus / COVID-19? documented as of this encounter Plan of Treatment Not on filedocumented as of this encounter Visit Diagnoses Not on filedocumented in this encounter Additional Health Concerns Assessment Noted Time PHQ-9 Depression Total Score: 0 02/26/2020 1:30 PM CURTAIN CUTTER HAND documented as of this encounter Care Teams Live Out Nanny Relationship Specialty Start Date End Date Goran Lloyd PCP - General Family Practice 12/29/17 05/21/[address] [address] Annette Alvarez, Nurse Practitioner Clinical Nurse 03/22/17 10/21/20 HEALTH INFORMATICS SPECIALIST MAIL DELIVERY SUPERVISOR Specialist [address] [place] [address] Environmental Services Director Dietitian, Registered 05/25/18 [facility] [place] [facility] [address] [place] [id number] Tamar Murphy, HEALTH INFORMATICS SPECIALIST Assigned PCP 02/08/20 1 MAIL DELIVERY SUPERVISOR [address] [place], [place] [phone] documented as of this encounter
--- OUTSIDE RECORDS SUMMARY | 2022-02-24 11:07 | XMS_ITS | Encounter Summary ---
:1965 Author Organization [place] Address [address] [place] [address] Care Team Providers Name Role Phone Annette Alvarez Mabel ALVAREZ ECOLOGICAL TECHNICAL OFFICER Unavailable Jocelyn Davidson RD Unavailable Tamar Murphy APRN ECOLOGICAL TECHNICAL OFFICER Unavailable Nikita Gamble Primary Care Provider Reason for Visit Reason Onset Date Comments Diabetes Education 05/22/2020 scheduling outreach Encounter Details Date Type Department Care Team Description 05/22/2020 Telephone [facility] Annette Nuñez Diabetes E ducation [facility] [place] KIM Monroe ECOLOGICAL TECHNICAL OFFICER (scheduling outreach) [address] [facility] [id number] [place] [id number] Social History Tobacco Use Types Packs/Day Years Used Date Smoking Tobacco: Never Smokeless Tobacco: Never Alcohol Use Standard Drinks/Week Comments Yes 0 (1 standard drink = 0.6 oz pure alcoho l) rare Sex Assigned at Date Recorded Female 03/04/2020 12:33 PM SUBSTATION MECHANIC documented as of this encounter Miscellaneous Notes Telephone Encounter - Trinidad Thomas - 05/22/2020 3:21 PM CST Diabetes Education Scheduling Outreach #1: Call to patient to schedule. Left message with phone number to call to schedule. Plan for 2nd outreach attempt within 1 week. Trinidad Adkins [facility] Scheduling TATION MECHANIC documented in this encounter Plan of Treatment Not on filedocumented as of this encounter Visit Diagnoses Not on filedocumented in this encounter Additional Health Concerns Assessment Noted Time PHQ-9 Depression Total Score: 0 02/26/2020 1:30 PM SUBSTATION MECHANIC documented as of this encounter Care Teams Dough Maker Relationship Specialty Start Date End Date Nikita Gamble PCP - General Family Medicine 05/26/20 [facility] [address] [place] [address] Annette Alvarez, Nurse Practitioner Clinical Nurse 03/22/17 10/21/20 [facility]TER ECOLOGICAL TECHNICAL OFFICER Specialist [address] [place], [place] [phone] Jocelyn Davidson RD Undercollar Maker Dietitian, Registered 05/25/18 [facility] [place] [address] Tamar Murphy APRN Assigned PCP 02/08/20 1 ECOLOGICAL TECHNICAL OFFICER [address] [place] [address] documented as of this encounter
--- OUTSIDE RECORDS SUMMARY | 2022-02-24 11:07 | XMS_ITS | Encounter Summary ---
:1965 Author Organization [place] Address [address] [facility] [address] Care Team Providers Name Role Phone Annette Alvarez KIM VEHICLE UPHOLSTERER Unavailable [phone] Goran Lloyd Primary Care Provider Jocelyn Davidson RD Unavailable Tamar Murphy APRN VEHICLE UPHOLSTERER Unavailable Encounter Details Date Type Department Care Team Description 03/25/2020 Telephone [facility] Tamar Murphy APRN [address] [phone] [place] [address] (Wo rk) Social History Tobacco Use Types Packs/Day Years Used Date Smoking Tobacco: Never Smokeless Tobacco: Never Alcohol Use Standard Drinks/Week Comments Yes 0 (1 standard drink = 0.6 oz pure alcoho l) rare Sex Assigned at Date Recorded Female 03/04/2020 12:33 PM MASTER DYER COVID-19 Exposure Response Date Recorded In the last month, have you been in contact with No / Unsure 03/05/2020 11:41 AM MASTER DYER someone who was confirmed or suspected to have Coronavirus / COVID-19? documented as of this encounter Plan of Treatment Not on filedocumented as of this encounter Visit Diagnoses Not on filedocumented in this encounter Additional Health Concerns Assessment Noted Time PHQ-9 Depression Total Score: 0 02/26/2020 1:30 PM MASTER DYER documented as of this encounter Care Teams [place]aere Relationship Specialty Start Date End Date Goran Lloyd PCP - General Family Practice 12/29/17 05/21/[address] [address] Annette Alvarez, Nurse Practitioner Clinical Nurse 03/22/17 10/21/20 AFFIRMATIVE ACTION OFFICER VEHICLE UPHOLSTERER Specialist [address] [place], [place] [phone] Jocelyn Davidson RD Nanotechnician Dietitian, Registered 05/25/18 [facility] [address] [place] [address] [place] [address] Tamar Murphy APRN Assigned PCP 02/08/20 1 VEHICLE UPHOLSTERER [address] [place], [place] [phone] documented as of this encounter
--- OUTSIDE RECORDS SUMMARY | 2022-02-24 11:07 | XMS_ITS | Encounter Summary ---
:1965 Author Organization [place] Address [address] [facility] 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 [place] [address] Phone: Referral ID Status Reason Start Date Expiration Date Visits Requ ested Visits Authorized [id number] Closed 11/07/2019 11/06/2020 1 1 Reason for Visit Reason Comments Diabetes Thyroid Disease Encounter Details Date Type Department Care Team Description 11/07/2019 Office Visit [facility] Annette Nuñez Type 1 rohan betes mellitus with complications (H) (Primary Dx); [facility] [place] KIM Monroe CNP Benign essential hypertension [address] [place] [id number] [phone] Social History Tobacco Use Types Packs/Day Years Used Date Smoking Tobacco: Never Smokeless Tobacco: Never Alcohol Use Standard Drinks/Week Comments Yes 0 (1 standard drink = 0.6 oz pure alcoho l) rare Sex Assigned at Date Recorded Female 03/04/2020 12:33 PM CADDY MASTER documented as of this encounter Last Filed [...] times a day 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 Intimate partner violence Fear of current or ex partner: Not on file Emotionally abused: Not on file Physically abused: Not on file Forced sexual activity: Not on file Other Topics Concern ??? Parent/sibling w/ CABG, RI or angioplasty before 65F 55M? Not Asked [...] More than 50% of the time spent with??Ms.??[place]??on counseling / coordinating her??care??and discussing the above plan of care. The patient indicates understanding of the above issues and agrees withthe plan set forth. ??Total face to face??time was 25??minutes. Follow-up: 3 months Annette Alvarez NP Endocrinology [facility] CC: documented in this encounter Miscellaneous [...] 7.3 (H) 0 - 5.6 % 11/07/2019 [place] 1:29 PM CDT [facility] Comment: Normal <5.7% Prediabetes 5.7-6.4% ??Diab etes 6.5% or higher - adopted from ADA consensus guidelines. Specimen Anatomical Collection Method Collection Time Receive d Time (Source) Location / / Volume Laterality Blood specimen 11/07/2019 1:17 PM 020 1:18 (specimen) CDT PM CDT Annette Alvarez APRN PHYSICAL THERAPIST AIDE LAB - BLOOD ORDERABLES Performing Organization Address City/State/ZIP Code Phon e Number [facility] [address] [place] [address] documented in this encounter Visit Diagnoses Diagnosis Type 1 diabetes mellitus with complicati ons (H) - Primary Benign essential hypertension Essential hypertension, benign documented in this encounter Care Teams Clinical Information Systems Director Relationship Specialty Start Date End Date Goran Lloyd PCP - General Family Practice 12/29/17 05/21/20 [facility] [address] [place] [address] Annette Alvarez, Nurse Practitioner Clinical Nurse 03/22/17 10/21/20 CLASSIFICATION AND TREATMENT DIRECTOR PHYSICAL THERAPIST AIDE Specialist [address] [place] [address] Therapeutic Case Manager Dietitian, Registered 05/25/18 [facility] [address] [place] [address] [place] [address] documented as of this encounter
--- OUTSIDE RECORDS SUMMARY | 2022-02-24 11:07 | XMS_ITS | Encounter Summary ---
:1965 Author Organization [place] Address [address] [facility] [place] [address] Care Team Providers Name Role Phone Annette Alvarez APRN MOBILE LAB TECHNICIAN Unavailable Goran Lloyd Primary Care Provider Jocelyn Davidson RD Unavailable Reason for Visit Reason Onset Date Comments Diabetes 01/25/2020 Encounter Details Date Type Department Care Team Description 01/25/[address] [facility] Annette Alvarez, Diabetes [place] VALVE MAKER MOBILE LAB TECHNICIAN [address] [phone] [place] [address] (Wo rk) Social History Tobacco Use Types Packs/Day Years Used Date Smoking Tobacco: Never Smokeless Tobacco: Never Alcohol Use Standard Drinks/Week Comments Yes 0 (1 standard drink = 0.6 oz pure alcoho l) rare Sex Assigned at Date Recorded Female 03/04/2020 12:33 PM DIESEL LOCOMOTIVE CRANE OPERATOR documented as of this encounter Miscellaneous Notes Telephone Encounter - Annette Alvarez APRN MOBILE LAB TECHNICIAN - 01/25/2020 3:46 PM CDT Pump download [...] a day ? Annette Alvarez NP Endocrinology EL LOCOMOTIVE CRANE OPERATOR Telephone Encounter - Mimi Cyr [...] on filedocumented in this encounter Care Teams Chemistry Technical Officer Relationship Specialty Start Date End Date Goran Lloyd PCP - General Family Practice 12/29/17 05/21/20 [facility] [address] [place] [address] Annette Alvarez, Nurse Practitioner Clinical Nurse 03/22/17 10/21/20 KIM MOBILE LAB TECHNICIAN Specialist [address] [place] [address] Doctor Of Nurse Anesthesia Dietitian, Registered 05/25/18 [facility] [address] [place] [address] SHARAN CARSON [phone] documented as of this encounter
--- OUTSIDE RECORDS SUMMARY | 2022-02-24 11:08 | XMS_ITS | Encounter Summary ---
:1965 Author Organization [place] Address [address] [facility] [place] [address] Care Team Providers Name Role Phone Annette Alvarez APRN SENIOR STORAGE ADMINISTRATOR Unavailable Goran Lloyd Primary Care Provider Jocelyn Davidson RD Unavailable Reason for Visit Reason Comments Diabetes Education Encounter Details Date Type Department Care Team Description 10/11/2018 [facility] Yadira Garcia Diabe gail Education Health[place] [address] [facility] [phone] [place], [place] (Work) [address] Social History Tobacco Use Types Packs/Day Years Used Date Smoking Tobacco: Never Smokeless Tobacco: Never Alcohol Use Standard Drinks/Week Comments Yes 0 (1 standard drink = 0.6 oz pure alcoho l) rare Sex Assigned at Date Recorded Female 03/04/2020 12:33 PM AIRPORT TOWER CONTROLLER documented as of this encounter Progress Notes [...] Getting harder to manage Cultural Influences/Ethnic Background: Z[place]ian Pt seen today to set up T:Slim [...] Healthy Eating Healthy Eating Assessed Today: No Cultural/mormon diet restrictions?: No Meal planning: Avoiding sweets, [...] Insulin Time: 4 hours Using T:Connect: Yes Tetra Tech Sharing Code: [id number] Current Treatments: Diet, Insulin Injections, Insulin Pump [...] Sees dentist every 6 months?: Yes Sees survey operations director (foot doctor)?: No Healthy Coping Healthy Coping [...] Primary documented in this encounter Care Teams Auto Glass Technician Relationship Specialty Start Date End Date Goran Lloyd PCP - General Family Practice 12/29/17 05/21/[address] [address] Annette Alvarez, Nurse Practitioner Clinical Nurse 03/22/17 10/21/20 AGENT TICKETING GATE SENIOR STORAGE ADMINISTRATOR Specialist [address] [place], [place] [phone] Jocelyn Davidson RD Associate Financial Advisor Dietitian, Registered 05/25/18 [facility] [place] [address] [place] [address] SHARAN CARSON [phone] documented as of this encounter
--- OUTSIDE RECORDS SUMMARY | 2022-02-24 11:08 | XMS_ITS | Encounter Summary ---
:1965 Author Organization [place] Address [address] [place] [address]. [place] [address] Care Team Providers Name Role Phone Annette Alvarez APRN MACHINE PIE MAKER Unavailable Goran Lloyd Primary Care Provider Jocelyn Davidson RD Unavailable Reason for Visit Reason Onset Date Comments Refill Request 10/16/2018 Levothyroxine refill request Encounter Details Date Type Department Care Team Description 10/16/2018 Refill [facility] Annette Alvarez, Refill Request [place] NUCLEAR OPERATIONS SPECIALIST MACHINE PIE MAKER (Levothyroxine refill [address] [facility] [address] [facility] request) [place] [address] [phone] (Wo rk) Social History Tobacco Use Types Packs/Day Years Used Date Smoking Tobacco: Never Smokeless Tobacco: Never Alcohol Use Standard Drinks/Week Comments Yes 0 (1 standard drink = 0.6 oz pure alcoho l) rare Sex Assigned at Date Recorded Female 03/04/2020 12:33 PM SENIOR IT BUSINESS ANALYST documented as of this encounter Miscellaneous Notes Telephone Encounter - Ashok Bella RN - 10/17/2018 10:34 AM CDT Left message to call back OR log in to [employer] . Message sent. Was due for follow up and labs with Annette in Apr 2018. Prescription approved per [facility] Refill Protocol x 1. Ashok Bella, RN Telephone Encounter - Ashok Bella RN - 10/17/2018 10:33 AM CDT Telephone Encounter - Savanah Madrid - 10/16/2018 3:44 PM CDT Patient requesting Levothyroxine to [facility]. Savanah Madrid. Director Of It Operations documented in this encounter Plan of Treatment Not on filedocumented as of this encounter Visit Diagnoses Diagnosis 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 documented in this encounter Care Teams Director Of Acquisitions Relationship Specialty Start Date End Date Goran Lloyd PCP - General Family Practice 12/29/17 05/21/20 [facility] [address] [place] [address] Annette Alvarez, Nurse Practitioner Clinical Nurse 03/22/17 10/21/20 NUCLEAR OPERATIONS SPECIALIST MACHINE PIE MAKER Specialist [address] [place] [address] Medical Customer Service Representative Dietitian, Registered 05/25/18 [facility] [facility] [place] [address] documented as of this encounter
--- OUTSIDE RECORDS SUMMARY | 2022-02-24 11:08 | XMS_ITS | Encounter Summary ---
:1965 Author Organization [place] Address [address] [facility] [place] [address] Care Team Providers Name Role Phone Annette Alvarez KIM SKIVER MACHINE OPERATOR Unavailable [phone] Goran Lloyd Primary Care Provider Jocelyn Davidson RD Unavailable Reason for Visit Reason Onset Date Comments Diabetes Education 07/31/2018 appointment- pump fa ilure Encounter Details Date Type Department Care Team Description 07/31/2018 Telephone [facility] Jocelyn Davidson RD Diabetes Education Clinic [facility] (appointment- pump [address] failure) [place] [address] [address] [place] [address] Social History Tobacco Use Types Packs/Day Years Used Date Smoking Tobacco: Never Smokeless Tobacco: Never Alcohol Use Standard Drinks/Week Comments Yes 0 (1 standard drink = 0.6 oz pure alcoho l) rare Sex Assigned at Date Recorded Female 03/04/2020 12:33 PM NEEDLE LOOM WEAVER documented as of this encounter Miscellaneous Notes [...] up replacement pump. Let pt know that science writer could see her at 9:30 or 1:30 on Tue, 08/02. Pt to call [phone] to confirm if one of those times will work for her. Jocelyn Davidson RD, CDE Diabetes Senior Lead Developer documented in this encounter Plan of Treatment Not on filedocumented as of this encounter Visit Diagnoses Not on filedocumented in this encounter Care Teams Conference Planner Relationship Specialty Start Date End Date Goran Lloyd PCP - General Family Practice 12/29/17 05/21/20 [facility] [address] [place] [address] Annette Alvarez, Nurse Practitioner Clinical Nurse 03/22/17 10/21/20 NIGHT WORKER SKIVER MACHINE OPERATOR Specialist [address] [place] [address] Pest Control Chemical Technician Dietitian, Registered 05/25/18 [facility] [place] SHARAN CAR[place] [address] documented as of this encounter
--- OUTSIDE RECORDS SUMMARY | 2022-02-24 11:08 | XMS_ITS | Encounter Summary ---
:1965 Author Organization [place] Address [address] [facility] [place] [address] Care Team Providers Name Role Phone Annette Alvarez SHIPPING HAND ELECTRIC SCREW DRIVER OPERATOR Unavailable [phone] Goran Lloyd Primary Care Provider Jocelyn Davidson RD Unavailable Tamar Murphy SHIPPING HAND ELECTRIC SCREW DRIVER OPERATOR Unavailable Nikita Gamble Primary Care Provider Encounter Details Date Type Department Care Team Description 07/07/2018 Records - [facility] CONVERSION Provider, Paul massey Social History Tobacco Use Types Packs/Day Years Used Date Smoking Tobacco: Never Smokeless Tobacco: Never Alcohol Use Standard Drinks/Week Comments Yes 0 (1 standard drink = 0.6 oz pure alcoho l) rare Sex Assigned at Date Recorded Female 03/04/2020 12:33 PM WEALTH MANAGEMENT CONSULTANT COVID-19 Exposure Response Date Recorded In the last month, have you been in contact with No / Unsure 03/05/2020 11:41 AM WEALTH MANAGEMENT CONSULTANT someone who was confirmed or suspected to have Coronavirus / COVID-19? documented as of this encounter Plan of Treatment Not on filedocumented as of this encounter Visit Diagnoses Not on filedocumented in this encounter Additional Health Concerns Infection Onset Date Last Indicated Resolved Time Rule Out COVID-19 02/26/2020 02/26/2020 02/27/2020 4:3 2 PM WEALTH MANAGEMENT CONSULTANT documented as of this encounter Care Teams Ostomy Nurse Relationship Specialty Start Date End Date PremaGoran PCP - General Family Practice 12/29/17 05/21/20 [facility] [address] [place] [address] Nikita Gamble PCP - General Family Medicine 05/26/20 [facility] [address] [place] [address] Annette Alvarez, Nurse Practitioner Clinical Nurse 03/22/17 10/21/20 SHIPPING HAND ELECTRIC SCREW DRIVER OPERATOR Specialist [address] [place], [place] [phone] Jocelyn Davidson RD Spinning Lathe Operator Automatic Dietitian, Registered 05/25/18 [facility] [address] [place] [address] [place] [address] Tamar Murphy APRN Assigned PCP 02/08/20 1 ELECTRIC SCREW DRIVER OPERATOR [address] [place] [address] documented as of this encounter
--- OUTSIDE RECORDS SUMMARY | 2022-02-24 11:08 | XMS_ITS | Encounter Summary ---
:1965 Author Organization [place] Address [address] [facility] [place] [address] Care Team Providers Name Role Phone Annette Alvarez APRN, CNP Unavailable [phone] Goran Lloyd Primary Care Provider Jocelyn Davidson RD Unavailable Reason for Visit Reason Onset Date Comments Refill Request 02/11/2019 levothyroxine (SYNTH ROID/LEVOTHROID) 150 MCG tablet Encounter Details Date Type Department Care Team Description 02/11/2019 Refill [facility] Annette Alvarez, Refill Request Maricarmen ALVAREZ CNP (levothyroxine [address] [place] [id number] [place] [address] AV E (SYNTHROID/LEVOTHROID) [place], [place] 150 MCG tablet) [address] [address] SH[place] [address] [phone] Social History Tobacco Use Types Packs/Day Years Used Date Smoking Tobacco: Never Smokeless Tobacco: Never Alcohol Use Standard Drinks/Week Comments Yes 0 (1 standard drink = 0.6 oz pure alcoho l) rare Sex Assigned at Date Recorded Female 03/04/2020 12:33 PM MAIL TELLER documented as of this encounter Miscellaneous Notes Telephone Encounter - Pam Boudreaux RN - 02/20/2019 4:49 PM CST Images from the original note were not included. Routing refill request to provider for review/approval because: Thyroid Protocol Bnywid89/21 8:05 PM Recent (12 mo) or future (30 days) visit within the authorizing provider's specialty Normal TSH on file in past 12 months Next 5 appointments (look out 90 days) Feb 21, 2019 9:30 AM MAIL TELLER Telephone Visit with Jocelyn Davidson RD [place] [facility] ([facility]) [address] [facility] [address] Apr 05, 2019 6:30 PM MAIL TELLER Return Visit with Annette Alvarez APRN CNP [facility] ([facility]) [address] [facility] [address] TELLER Telephone Encounter - Sloan Vick RN - 02/15/2019 8:05 PM CST FNA spoke to patient re: levothyroxine refill. FNA advised of note by Annette Alvarez NP. Patient says her TSH was done at the [facility]. Patient has an appointment on 04/05/19 with Annette. Patient would like refills to be sent to [facility] in [place]. Patient is asking for a 90 day refill if possible. Sloan Vick RN/[place] Nurse Advisors TELLER Telephone Encounter - Annette Alvarez APRN CNP - 02/15/2019 4:21 AM MAIL TELLER Please call and have patient schedule a follow up visit - not seen for 1 year. Route back to me for refills to last until her scheduled follow up . Annette Alvarez NP Endocrinology TELLER Telephone Encounter - Pam Tavera RN - 02/12/2019 4:32 PM CST Failed protocol TELLER Telephone Encounter - Micah Sawant - 02/11/2019 4:54 PM CST Requested Prescriptions Pending Prescriptions Disp Refills ??? levothyroxine (SYNTHROID/LEVOTHROID) 150 MCG tablet Last Written Prescription Date: 10/17/2018 Last Fill Quantity: 90 tablet, # refills: 0 Last Office Visit: No previous visit found Future Office Visit: Next 5 appointments (look out 90 days) Apr 05, 2019 6:30 PM MAIL TELLER Return Visit with Annette Alvarez APRN CNP [facility] ([facility]) [address] [facility] [address] 90 tablet 0 Sig: Take [...] had a positive test, please check TSH. 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
--- OUTSIDE RECORDS SUMMARY | 2022-02-24 11:08 | XMS_ITS | Encounter Summary ---
:1965 Author Organization [place] Address [address] [facility] [place] [address] Care Team Providers Name Role Phone Annette Alvarez APRN BEET FLUMER Unavailable Goran Lloyd Primary Care Provider Jocelyn Davidson RD Unavailable Reason for Visit Reason Comments Diabetes Education Encounter Details Date Type Department Care Team Description 08/02/2018 [facility] Jocelyn Davidson, Diabet es Education Health/[place] [address] [place] [address] [place] [address] [place] [address] Social History Tobacco Use Types Packs/Day Years Used Date Smoking Tobacco: Never Smokeless Tobacco: Never Alcohol Use Standard Drinks/Week Comments Yes 0 (1 standard drink = 0.6 oz pure alcoho l) rare Sex Assigned at Date Recorded Female 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 Diabetes Self-Management Education & Support SUBJECTIVE/OBJECTIVE Diabetes education in the past 24mo: (P) Yes Diabetes type: (P) Type 1 Disease course: (P) Getting harder to manage Cultural Influences/Ethnic Background: Dominican Pt seen today to set up T:Slim [...] set changes, tubing fills, etc) Healthy Eating Cultural/anabaptism diet restrictions?: (P) No Meal planning: (P) [...] hours Using T:Connect: Yes Dexcom Sharing Code: [id number] Current Treatments: (P) Diet, Insulin Injections, Insulin [...] dentist every 6 months?: (P) Yes Sees staff assistant (foot doctor)?: (P) No Healthy Coping Informal [...] knee replacement. Jocelyn Davidson RD, CDE Diabetes Stacker Driver Time Spent: 60 minutes Encounter Type: Individual [...] Primary documented in this encounter Care Teams Manager Mutual Fund Relationship Specialty Start Date End Date Goran Lloyd PCP - General Family Practice 12/29/17 05/21/20 [facility] [address] [place] [address] Annette Alvarez, Nurse Practitioner Clinical Nurse 03/22/17 10/21/20 CASH OFFICE WORKER BEET FLUMER Specialist [address] [place], [place] [phone] Jocelyn Davidson RD Editor Producer Dietitian, Registered 05/25/18 [facility] [place] [address] [place] [address] SHARAN CARSON [id number] documented as of this encounter
--- OUTSIDE RECORDS SUMMARY | 2022-02-24 11:08 | XMS_ITS | Encounter Summary ---
:1965 Author Organization [place] Address [address] [place] [address]. [place] [address] Care Team Providers Name Role Phone Annette Alvarez Mabel STAKE SETTER ELECTRICAL MECHANIC Unavailable Goran Lloyd Primary Care Provider Jocelyn Davidson RD Unavailable Reason for Visit Reason Comments Medication Refill Encounter Details Date Type Department Care Team Description 09/30/2018 Refill [facility] Annette Alvarez, Medication Refill [place] STAKE SETTER ELECTRICAL MECHANIC [address] [phone] [place] [address] (Wo rk) Social History Tobacco Use Types Packs/Day Years Used Date Smoking Tobacco: Never Smokeless Tobacco: Never Alcohol Use Standard Drinks/Week Comments Yes 0 (1 standard drink = 0.6 oz pure alcoho l) rare Sex Assigned at Date Recorded Female 03/04/2020 12:33 PM REGISTERED 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
--- OUTSIDE RECORDS SUMMARY | 2022-02-24 11:08 | XMS_ITS | Encounter Summary ---
:1965 Author Organization [place] Address [address] [facility] [place] [address] Care Team Providers Name Role Phone Annette Alvarez APRN TAVERN OPERATOR Unavailable Goran Lloyd Primary Care Provider Deidre Kirkland RD Unavailable Reason for Visit Reason Comments Diabetes Education Encounter Details Date Type Department Care Team Description 07/19/2018 [facility] Deidre Kirkland, Diabet es Education Health/[place] Visit [id number] [address] [place] [address] Social History Tobacco Use Types Packs/Day Years Used Date Smoking Tobacco: Never Smokeless Tobacco: Never Alcohol Use Standard Drinks/Week Comments Yes 0 (1 standard drink = 0.6 oz pure alcoho l) rare Sex Assigned at Date Recorded 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 Please allow 3 business days for your refills to be completed. Instructions for emailing the Diabetes Educators If you need to communicate a non-urgent message to a Sports Betting Manager via email, please send to . Please [...] Insulin Pump Start SUBJECTIVE/OBJECTIVE Cultural Influences/Ethnic Background: Nigerien Pt here with , and Tandem pump Rep. Insulin Pump Information Insulin Pump Type: Tandem t:slim Pump Serial Number: [id number] Infusion Set: Tandem Tandem Infusion Set: Auto Soft 90 Insulin Pump Start Insulin Pump Type: Tandem t:slim Pump Serial Number: [id number] Tandem Infusion Set: Auto Soft 90, 6 [...] on: 07/28/[address], CDE Diabetes Real Estate Broker Time Spent: 60 Visit Type: Individual Any [...] thyroid documented in this encounter Care Teams Energy Project Manager Relationship Specialty Start Date End Date Goran Lloyd PCP - General Family Practice 12/29/17 05/21/[address] [address] Annette Alvarez, Nurse Practitioner Clinical Nurse 03/22/17 10/21/20 MANAGER PROGRAMMING TAVERN OPERATOR Specialist [address] [place], [place] [phone] Deidre Kirkland RD Sports Betting Manager Dietitian, Registered 05/25/18 JET [place] [facility] [place] [address] documented as of this encounter
--- OUTSIDE RECORDS SUMMARY | 2022-02-24 11:08 | XMS_ITS | Encounter Summary ---
:1965 Author Organization [place] Address [address] [place] [address]. [place] [address] Care Team Providers Name Role Phone Annette Alvarez APRN VENEER TAPING MACHINE OPERATOR Unavailable [phone] Goran Lloyd Primary Care Provider Jocelyn Davidson RD Unavailable Encounter Details Date Type Department Care Team Description 07/19/2018 Travel Social History Tobacco Use Types Packs/Day Years Used Date Smoking Tobacco: Never Smokeless Tobacco: Never Alcohol Use Standard Drinks/Week Comments Yes 0 (1 standard drink = 0.6 oz pure alcoho l) rare Sex Assigned at Date Recorded Female 03/04/2020 12:33 PM ASSOCIATE PATHOLOGIST documented as of this encounter Plan of Treatment Not on filedocumented as of this encounter Visit Diagnoses Not on filedocumented in this encounter Care Teams Management Trainer Relationship Specialty Start Date End Date Goran Lloyd PCP - General Family Practice 12/29/17 05/21/20 [facility] [address] [place] [address] Annette Alvarez, Nurse Practitioner Clinical Nurse 03/22/17 10/21/20 ASSEMBLY ADJUSTER VENEER TAPING MACHINE OPERATOR Specialist [address] [place], [place] [phone] Jocelyn Davidson RD Screening Nurse Dietitian, Registered 05/25/[address] [place] [address] documented as of this encounter
--- OUTSIDE RECORDS SUMMARY | 2022-02-24 11:08 | XMS_ITS | Encounter Summary ---
:1965 Author Organization [place] Address [address] [place] [address] Care Team Providers Name Role Phone Annette Alvarez APRN LINK WIRE FABRIC MACHINE OPERATOR Unavailable [phone] Goran Lloyd Primary Care Provider Jocelyn Davidson RD Unavailable Reason for Visit Reason Onset Date Comments Medication Refill 12/16/2018 NOVOLOG VIAL 100 UNI T/ML soln Encounter Details Date Type Department Care Team Description 12/16/2018 Refill [facility] Annette Alvarez, Medication Refill [place] ALVAREZ LINK WIRE FABRIC MACHINE OPERATOR (NOVOLOG VIAL 100 [address] [address] [address]/ML soln) [place], [place] [address] [address] [place] [address] [phone] Social History Tobacco Use Types Packs/Day Years Used Date Smoking Tobacco: Never Smokeless Tobacco: Never Alcohol Use Standard Drinks/Week Comments Yes 0 (1 standard drink = 0.6 oz pure alcoho l) rare Sex Assigned at Date Recorded Female 03/04/2020 12:33 PM SANDBLAST OR SHOTBLAST EQUIPMENT TENDER documented as of this encounter Miscellaneous [...] ovaries documented in this encounter Care Teams Backwinder Relationship Specialty Start Date End Date Goran Lloyd PCP - General Family Practice 12/29/17 05/21/[address] [address] Annette Alvarez, Nurse Practitioner Clinical Nurse 03/22/17 10/21/20 CLINICAL RESEARCH DIRECTOR LINK WIRE FABRIC MACHINE OPERATOR Specialist [address] [place], [place] [phone] Jocelyn Davidson RD Tax Auditor Dietitian, Registered 05/25/18 JET [place] [facility] [place] [address] documented as of this encounter
--- OUTSIDE RECORDS SUMMARY | 2022-02-24 11:08 | XMS_ITS | Encounter Summary ---
:1965 Author Organization [place] Address [address] [facility] [place] [address] Care Team Providers Name Role Phone Annette Alvarez APRN ICT SUPPORT AND TEST ENGINEERS Unavailable [phone] Goran Lloyd Primary Care Provider Jocelyn Davidson RD Unavailable Reason for Visit Reason Comments Diabetes Education Encounter Details Date Type Department Care Team Description 07/28/2018 [facility] Jocelyn Davidson, Diabet es Education Health/[place] Visit [address] [facility] [place] [address] [place] [id number] [place] [address] Social History Tobacco Use Types Packs/Day Years Used Date Smoking Tobacco: Never Smokeless Tobacco: Never Alcohol Use Standard Drinks/Week Comments Yes 0 (1 standard drink = 0.6 oz pure alcoho l) rare Sex Assigned at Date Recorded Female 03/04/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 Diabetes Support Resources: T:Connect Interactive Investor Dexcom Clarity Follow up: Call ([phone]), e-mail ( ), or send [employer] message to educator with blood sugar readings in 1 week. Please schedule a follow up sometime soon after your knee surgery. Bring blood glucose meter and logbook with you to all doctor and follow-up appointments. Jocelyn Davidson RD, LD, CDE Diabetes Shoe Designer [place] [facility] for the [facility]: For Your Diabetes or Nutrition Education Appointments Call: [phone] For Diabetes or Nutrition Related Questions Call or Email: [phone] If you need a medication refill please [...] No Other concerns:: None Cultural Influences/Ethnic Background: [place] Patient seen today for Insulin Pump CGM [...] Healthy Eating Healthy Eating Assessed Today: Yes Cultural/hindu diet restrictions?: No Patient on a regular [...] upcoming knee surgery. Diabetes Support Resources: T:Connect Interactive Investor Dexcom Clarity Time Spent: 60 minutes Encounter [...] Primary documented in this encounter Care Teams Airbrush Artist Technical Relationship Specialty Start Date End Date Goran Lloyd PCP - General Family Practice 12/29/17 05/21/[address] [address] Annette Alvarez, Nurse Practitioner Clinical Nurse 03/22/17 10/21/20 ESTHETIC DERMATOLOGIST ICT SUPPORT AND TEST ENGINEERS Specialist [address] [place] [address] Floor Representative Dietitian, Registered 05/25/18 JET [place] [address] [place] [address] [place] [address] documented as of this encounter
--- OUTSIDE RECORDS SUMMARY | 2022-02-24 11:08 | XMS_ITS | Encounter Summary ---
:1965 Author Organization [place] Address [address] [facility] [place] [address] Care Team Providers Name Role Phone Annette Alvarez APRN BOOK SEWER Unavailable Goran Lloyd Primary Care Provider Jocelyn Davidson RD Unavailable Reason for Visit Reason Onset Date Comments Patient/info Update 08/01/2018 new pump Encounter Details Date Type Department Care Team Description 08/01/2018 Telephone [facility] Jocelyn Davidson, RENATA Patient/info Update [facility] (new pump) [address] [place] [id number] [phone] Social History Tobacco Use Types Packs/Day Years Used Date Smoking Tobacco: Never Smokeless Tobacco: Never Alcohol Use Standard Drinks/Week Comments Yes 0 (1 standard drink = 0.6 oz pure alcoho l) rare Sex Assigned at Date Recorded Female 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 Please advise Ilda Smith String Cutter documented in this encounter Plan of Treatment Not on filedocumented as of this encounter Visit Diagnoses Not on filedocumented in this encounter Care Teams Appraisal Coordinator Relationship Specialty Start Date End Date Goran Lloyd PCP - General Family Practice 12/29/17 05/21/[address] [address] Annette Alvarez, Nurse Practitioner Clinical Nurse 03/22/17 10/21/20 MACHINE OPERATOR HOP WORKER BOOK SEWER Specialist [address] [place], [place] [phone] Jocelyn Davidson RD Air Surveillance Operator Dietitian, Registered 05/25/18 [facility] MAGGIE [facility] [place] [address] documented as of this encounter
--- OUTSIDE RECORDS SUMMARY | 2022-02-24 11:08 | XMS_ITS | Encounter Summary ---
:1965 Author Organization [place] Address [address] [place] [address]. 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 documented as of this encounter Plan of Treatment Not on filedocumented as of this encounter Visit Diagnoses Not on filedocumented in this encounter Care Teams Log Manager Relationship Specialty Start Date End Date Goran Lloyd PCP - General Family Practice 12/29/17 05/21/20 [facility] [address] [place] [address] Annette Alvarez, Nurse Practitioner Clinical Nurse 03/22/17 10/21/20 BUS ATTENDANT MARKETING COMMUNICATIONS LEADER Specialist [address] [place], [place] [phone] Jocelyn Davidson RD Operations Support Specialist Dietitian, Registered 05/25/[address] [place] [address] documented as of this encounter
--- OUTSIDE RECORDS SUMMARY | 2022-02-24 11:08 | XMS_ITS | Encounter Summary ---
:1965 Author Organization [place] Address [address] [place] [address] Care Team Providers Name Role Phone Annette Alvarez APRN, CNP Unavailable Goran Lloyd Primary Care Provider Jocelyn Davidson RD Unavailable Reason for Visit Reason Onset Date Comments Diabetes Education 07/10/2018 Pump orders Encounter Details Date Type Department Care Team Description 07/10/[address] [facility] Jocelyn Davidson RD Diabetes Education Clinic [facility] (Pump orders) [address] [place] [address] [address] [place] [address] Social History Tobacco Use Types Packs/Day Years Used Date Smoking Tobacco: Never Smokeless Tobacco: Never Alcohol Use Standard Drinks/Week Comments Yes 0 (1 standard drink = 0.6 oz pure alcoho l) rare Sex Assigned at Date Recorded Female 03/04/2020 12:33 PM ACCOUNTS PAYABLE TECHNICIAN documented as of this encounter Miscellaneous [...] alternative plan. Jocelyn Davidson RD, CDE Diabetes Splitting Machine Feeder documented in this encounter Plan of Treatment Not on filedocumented as of this encounter Visit Diagnoses Not on filedocumented in this encounter Care Teams Exchange Clerk Relationship Specialty Start Date End Date Goran Lloyd PCP - General Family Practice 12/29/17 05/21/[address] [address] Annette Alvarez, Nurse Practitioner Clinical Nurse 03/22/17 10/21/20 OCEANOLOGIST SPONSORSHIP MANAGER Specialist [address] [place] [address] Operations Engineer Dietitian, Registered 05/25/18 [facility] MAGGIE [facility] [address] [phone] documented as of this encounter
--- OUTSIDE RECORDS SUMMARY | 2022-02-24 11:08 | XMS_ITS | Encounter Summary ---
:1965 Author Organization [place] Address [address] [place] [address]. 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 documented as of this encounter Plan of Treatment Not on filedocumented as of this encounter Visit Diagnoses Not on filedocumented in this encounter Care Teams Evaporator Helper Relationship Specialty Start Date End Date Goran Lloyd PCP - General Family Practice 12/29/17 05/21/20 [facility] [address] [place] [address] Annette Alvarez, Nurse Practitioner Clinical Nurse 03/22/17 10/21/20 DEADENER MEASUREMENT OPERATOR Specialist [address] [place], [place] [phone] Jocelyn Davidson RD Credit Risk Specialist Dietitian, Registered 05/25/[address] [place] [address] documented as of this encounter
--- OUTSIDE RECORDS SUMMARY | 2022-02-24 11:08 | XMS_ITS | Encounter Summary ---
:1965 Author Organization [place] Address [address] [place] [address]. [place] [address] Care Team Providers Name Role Phone Annette Alvarez APRN BOOKS SALESPERSON Unavailable [phone] Goran Lloyd Primary Care Provider Jocelyn Davidson RD Unavailable Encounter Details Date Type Department Care Team Description 08/02/2018 Travel Social History Tobacco Use Types Packs/Day Years Used Date Smoking Tobacco: Never Smokeless Tobacco: Never Alcohol Use Standard Drinks/Week Comments Yes 0 (1 standard drink = 0.6 oz pure alcoho l) rare Sex Assigned at Date Recorded Female 03/04/2020 12:33 PM 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 SKATEBOARDER documented as of this encounter Plan of Treatment Not on filedocumented as of this encounter Visit Diagnoses Not on filedocumented in this encounter Care Teams Resin Shaver Relationship Specialty Start Date End Date Goran Lloyd PCP - General Family Practice 12/29/17 05/21/20 [facility] [address] [place] [address] Annette Alvarez, Nurse Practitioner Clinical Nurse 03/22/17 10/21/20 COMPUTER HARDWARE DESIGNER BOOKS SALESPERSON Specialist [address] [place], [place] [phone] Jocelyn Davidson RD Ocular Pathologist Dietitian, Registered 05/25/[address] [place] [address] documented as of this encounter
--- OUTSIDE RECORDS SUMMARY | 2022-02-24 11:08 | XMS_ITS | Encounter Summary ---
:1965 Author Organization [place] Address [address] [facility] [place] [address] Care Team Providers Name Role Phone Annette Alvarez APRN THIRD COOK Unavailable [phone] Goran Lloyd Primary Care Provider Jocelyn Davidson RD Unavailable Reason for Visit Reason Onset Date Comments Erroneous encounter-disregard 07/28/2018 Encounter Details Date Type Department Care Team Description 07/28/2018 Telephone [facility] Jocelyn Davidson RD Erroneous Clinic [facility] encounter-disregard [address] [place] [address] [address] [place] [address] Social History Tobacco Use Types Packs/Day Years Used Date Smoking Tobacco: Never Smokeless Tobacco: Never Alcohol Use Standard Drinks/Week Comments Yes 0 (1 standard drink = 0.6 oz pure alcoho l) rare Sex Assigned at Date Recorded Female 03/04/2020 12:33 PM 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 MEDICAL TECHNICIAN/DRIVER documented as of this encounter Plan of Treatment Not on filedocumented as of this encounter Visit Diagnoses Diagnosis Type 1 diabetes mellitus with complicati ons (H) Uncontrolled type 1 diabetes mellitus wi th stage 3 chronic kidney disease Type I (juvenile type) diabetes mellitus with renal manifestations, uncontrolled PCOS (polycystic ovarian syndrome) Polycystic ovaries documented in this encounter Care Teams Liquefaction And Regasification Helper Relationship Specialty Start Date End Date Goran Lloyd PCP - General Family Practice 12/29/17 05/21/[address] [address] Annette Alvarez, Nurse Practitioner Clinical Nurse 03/22/17 10/21/20 COTTON PRESSER THIRD COOK Specialist [address] [place], [place] [phone] Jocelyn Davidson RD Assisted Living Care Manager Dietitian, Registered 05/25/18 [facility] MAGGIE [facility] [place] [address] documented as of this encounter
--- OUTSIDE RECORDS SUMMARY | 2022-02-24 11:08 | XMS_ITS | Encounter Summary ---
:1965 Author Organization [place] Address [address] [facility] [place] [address] Care Team Providers Name Role Phone Annette Alvarez APRN REHABILITATION SPECIALIST Unavailable [phone] Goran Lloyd Primary Care Provider Deidre Kirkland RD Unavailable Reason for Visit Reason Onset Date Comments Diabetes Education 09/01/2018 Encounter Details Date Type Department Care Team Description 09/01/2018 Telephone [facility] Deidre Kirkland RD Diabetes Education [facility] - [address] [phone] Social History Tobacco Use Types Packs/Day Years Used Date Smoking Tobacco: Never Smokeless Tobacco: Never Alcohol Use Standard Drinks/Week Comments Yes 0 (1 standard drink = 0.6 oz pure alcoho l) rare Sex Assigned at Date Recorded Female 03/04/2020 12:33 PM COW TENDER documented as of this encounter Miscellaneous [...] agreed. Sending rx for insulin syringes to [facility] pharmacy. Pt planning to upload her pump in next 1-2 weeks as requested by CDE. Deidre Kirkland RD, CDE Diabetes Sample Coordinator Telephone Encounter - Deidre Kirkland RD - 09/01/2018 1:44 PM CDT Noted a missed call from patient (per caller ID). Attempted to call patient back- no answer- left message encouraging her to send a [employer] message. Otherwise, will attempt to reach once more before end of day. Deidre Kirkland RD, JENNE Diabetes Sample Coordinator Addendum Note - Deidre Kirkland RD - 09/01/2018 1:44 PM CDT Addended by: DEIDRE KIRKLAND on: 09/01/2018 04:05 PM Modules accepted: Orders documented in this encounter Plan of Treatment Not on filedocumented as of this encounter Visit Diagnoses Diagnosis Type 1 diabetes mellitus with complicati ons (H) - Primary documented in this encounter Care Teams Warehouse Supervisor Relationship Specialty Start Date End Date Goran Lloyd PCP - General Family Practice 12/29/17 05/21/20 [facility] [address] [place] [address] Annette Alvarez, Nurse Practitioner Clinical Nurse 03/22/17 10/21/20 ART PREPARATOR REHABILITATION SPECIALIST Specialist [address] [place], [place] [phone] Deidre Kirkland RD Warehouse Engineer Dietitian, Registered 05/25/18 [facility] [address] [place] [address] documented as of this encounter
--- OUTSIDE RECORDS SUMMARY | 2022-02-24 11:09 | XMS_ITS | Encounter Summary ---
:1965 Author Organization [facility] Address [address] [place] [address]. [place] [address] Care Team Providers Name Role Phone No Ref-Primary, Physician Primary Care Provider [phone] Reason for Referral Patient Education - Closed Specialty Diagnoses / Procedures Referred By Contact Refer red To Contact Diagnoses Uncontrolled type 1 diabetes mellitus with stage 3 chronic kidney disease Lashae Alvarez APRN [facility] [address] 651 [phone] Referral ID Status Reason Start Date Expiration Date Visits Requ ested Visits Authorized [id number] Closed 12/10/2016 12/10/2017 1 1 Reason for Visit Reason Comments Diabetes Encounter Details Date Type Department Care Team Description 11/25/2016 Office Visit [facility] Lashae Alvarez ed type 1 diabetes mellitus with stage 3 chronic kidney disease (H) (Primary Dx); Clinic [place] KIM Monroe CNP PCOS (polycystic ovarian syndrome) [address] [place] [id number] [phone] Social History Tobacco Use Types Packs/Day Years Used Date Smoking Tobacco: Never Smokeless Tobacco: Never Alcohol Use Standard Drinks/Week Comments Yes 0 (1 standard drink = 0.6 oz pure alcoho l) rare Sex Assigned at Date Recorded Female 03/04/2020 12:33 PM 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 Schedule an appointment with Yadira Garcia, asset availability leader for prepump education. 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 History of right nephrectomy 12 years ago - was having severe pain prior to surgery, thinks due topolycystic kidney disease Lives in [place] Complications: Diabetes Complications Description / Detail Diabetic [...] Follow-up: 1 month Lashae Alvarez NP Endocrinology [facility] CC: documented in this encounter Nursing [...] Basic metabolic panel (11/25/2016 2:33 PM CDT) [facility] gist Method Time Signature Sodium 139 133 - 144 11/26/2016 [place] mmol/L 3:30 PM CDT [facility] Potassium 4.4 3.4 - 5.3 11/26/2016 [place] mmol/L 3:30 PM CDT [facility] Chloride 106 94 - 109 11/26/2016 [place] mmol/L 3:30 PM CDT [facility] Carbon Dioxide 24 20 - 32 11/26/2016 [place] mmol/L 3:30 PM CDT [facility] Anion Gap 9 3 - 14 11/26/2016 [facility] mmol/L 3:30 PM CDT [facility] Glucose 117 (H) 70 - 99 11/26/2016 [place] mg/dL 3:30 PM CDT [facility] Urea Nitrogen 30 7 - 30 11/26/2016 [place] mg/dL 3:30 PM CDT [facility] Creatinine 2.10 (H) 0.52 - 11/26/2016 [place] 1.04 3:30 PM CDT CLINICS mg/dL [facility] GFR Estimate 25 (L) >60 11/26/2016 [place] mL/min/1. 3:30 PM CDT CLINICS 7m2 [facility] Comment: Non GFR Calc GFR Estimate If 30 (L) >60 mL/min/1.7m2 11/26/2016 3:30 P M [facility] Black T [facility] Comment: GFR Calc Calcium 8.9 8.5 - 10.1 mg/dL 11/26/2016 3:30 PM CDT [facility] Specimen Anatomical Collection Method Collection Time Receive d Time (Source) Location / / Volume Laterality Blood specimen 11/25/2016 2:33 PM 017 3:16 (specimen) CDT PM CDT Lashae Alvarez APRN SOFTWARE PROGRAMMER LAB - BLOOD ORDERABLES Performing Organization Address City/State/ZIP Code Phon e Number [facility] [address] [place] [address] Albumin Random Urine Quantitative with Creat Ratio (11/25/2016 2:33 PM CDT) Patholo gist Method Time Signature Creatinine 26 mg/dL 11/25/2016 [place] Urine 5:45 PM CDT [facility] Albumin Urine <5 mg/L 11/25/2016 [place] mg/L 5:49 PM CDT [facility] Albumin Urine Unable to 0 - 25 11/25/2016 [place] mg/g Cr calculate due mg/g Cr 5:49 PM CDT [facility] Specimen Anatomical Collection Method Collection Time Receive d Time (Source) Location / / Volume Laterality Urine specimen 11/25/2016 2:33 PM 017 2:34 (specimen) CDT PM CDT Lashae Alvarez APRN, CNP LAB - URINE ORDERABLES Performing Organization Address City/State/ZIP Code Phon e Number [facility] [address] [place] [address] [phone] [facility] [address] [place] [address], [facility] [phone] (ABNORMAL) Hemoglobin A1c (11/25/2016 2:33 PM CDT) P athologist Signature Hemoglobin A1C 7.8 (H) 4.3 - 6.0 11/25/2016 [place] % 2:57 PM CDT [facility] Comment: Results confirmed by repeat gail t Specimen Anatomical Collection Method Collection Time Receive d Time (Source) Location / / Volume Laterality Blood specimen 11/25/2016 2:33 PM 017 2:34 (specimen) CDT PM CDT Lashae Alvarez APRN, CNP LAB - BLOOD ORDERABLES Performing Organization Address City/[facility]/ZIP [facility] Phon e Number [facility] [address] [place] [address] documented in this encounter Visit Diagnoses Diagnosis Uncontrolled type 1 diabetes mellitus wi th stage 3 chronic kidney disease - Primary Type I (juvenile type) diabetes mellitus with renal manifestations, uncontrolled PCOS (polycystic ovarian syndrome) Polycystic ovaries documented in this encounter Care Teams Furniture Assembly Supervisor Relationship Specialty Start Date End Date No Ref-Primary, Physician PCP - General 12/25/14 12/28/17 documented as of this encounter
--- OUTSIDE RECORDS SUMMARY | 2022-02-24 11:09 | XMS_ITS | Encounter Summary ---
:1965 Author Organization [facility] Address [address] [place] [address]. [place] [address] Care Team Providers Name Role Phone No Ref-Primary, Physician Primary Care Provider Annette Alvarez BECK OPERATOR MODEL MAKER PLASTIC Unavailable [phone] Reason for Visit Reason Onset Date Comments Medication Question 03/22/2017 Encounter Details Date Type Department Care Team Description 03/22/2017 Telephone [facility] Annette Alvarez, Medication Question [place] BECK OPERATOR MODEL MAKER PLASTIC [address] [phone] (Wo rk) Social History Tobacco Use Types Packs/Day Years Used Date Smoking Tobacco: Never Smokeless Tobacco: Never Alcohol Use Standard Drinks/Week Comments Yes 0 (1 standard drink = 0.6 oz pure alcoho l) rare Sex Assigned at Date Recorded Female 03/04/2020 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 I am closing this encounterto avoid confusion. Please see the other message for f/u. Karley Kessler CMA H ASSEMBLY INSTRUCTOR Telephone Encounter - JayOlga Violeta - 03/22/2017 [...] to reach patient: Home number on file [phone] (home) Best Time: anytime Can we leave a detailed message on this number? YES H ASSEMBLY INSTRUCTOR documented in this encounter Plan of Treatment Not on filedocumented as of this encounter Visit Diagnoses Not on filedocumented in this encounter Care Teams Radio Control Crane Operator Relationship Specialty Start Date End Date No Ref-Primary, PCP - General 12/25/14 12/28/17 Physician Annette Alvarez, Nurse Practitioner Clinical Nurse Specialist 10/21/20 BECK OPERATOR MODEL MAKER PLASTIC [phone] [place] [address] documented as of this encounter
--- OUTSIDE RECORDS SUMMARY | 2022-02-24 11:09 | XMS_ITS | Encounter Summary ---
:1965 Author Organization [facility] Address [address] [place] [address]. [place] [address] Care Team Providers Name Role Phone No Ref-Primary, Physician Primary Care Provider [phone] Annette Alvarez TRUCK LOADER OVERHEAD CRANE EXHIBITION ORGANISER Unavailable Reason for Visit Reason Onset Date Comments Refill Request 08/31/2017 naltrexone-bupropion (CONTRAVE) 8-90 MG per 12 hr tablet Encounter Details Date Type Department Care Team Description 08/31/2017 Refill [facility] Annette Alvarez, Refill Request [place] TRUCK LOADER OVERHEAD CRANE EXHIBITION ORGANISER (naltrexone-bupropion [address] [address] [facility] (CONTRAVE) 8-90 MG per [place], [place] 12 hr t ablet) [id number] (Wo rk) Social History Tobacco Use Types Packs/Day Years Used Date Smoking Tobacco: Never Smokeless Tobacco: Never Alcohol Use Standard Drinks/Week Comments Yes 0 (1 standard drink = 0.6 oz pure alcoho l) rare Sex Assigned at Date Recorded Female 03/04/2020 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 Jasmyn Lee, RN -- [facility] Telephone Encounter - Lisandro Lena - 09/05/2017 [...] obesity documented in this encounter Care Teams Senior Data Integration Developer Relationship Specialty Start Date End Date No Ref-Primary, PCP - General 12/25/14 12/28/17 Physician Annette Alvarez, Nurse Practitioner Clinical Nurse Specialist 10/21/20 K[place] R[place]RIGUE[place] [address] [place] [address] documented as of this encounter
--- OUTSIDE RECORDS SUMMARY | 2022-02-24 11:09 | XMS_ITS | Encounter Summary ---
:1965 Author Organization [facility] Address [address] [place] [address]. [place] [address] Care Team Providers Name Role Phone No Ref-Primary, Physician Primary Care Provider [phone] Reason for Visit Reason Onset Date Comments Medication Request 01/26/2017 test strips Encounter Details Date Type Department Care Team Description [facility], Medication Request (test [place] MANUAL LATHE OPERATOR EDUCATIONAL COORDINATOR strips) [id number] [facility] [address] [place] [id number] (Wo rk) Social History Tobacco Use Types Packs/Day Years Used Date Smoking Tobacco: Never Smokeless Tobacco: Never Alcohol Use Standard Drinks/Week Comments Yes 0 (1 standard drink = 0.6 oz pure alcoho l) rare Sex Assigned at Date Recorded Female 03/04/2020 12: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 Ashok Bella RN Telephone Encounter - Annette Alvarez, MANUAL LATHE OPERATOR EDUCATIONAL COORDINATOR - 01/27/2017 12:25 PM CDT Please call [...] work shift times, OK to leave message [phone] Routing refill request to provider for review/approval [...] uncontrolled documented in this encounter Care Teams Library Serials Assistant Relationship Specialty Start Date End Date No Ref-Primary, Physician PCP - General 12/25/14 12/28/17 documented as of this encounter
--- OUTSIDE RECORDS SUMMARY | 2022-02-24 11:09 | XMS_ITS | Encounter Summary ---
:1965 Author Organization [facility] Address [address] [place] [address]. [place] [address] Care Team Providers Name Role Phone Annette Alvarez KIM RODRIGUEZ Unavailable [phone] Goran Lloyd Primary Care Provider Reason for Visit Reason Onset Date Comments Patient Request for Note/Letter 01/04/2018 patient requesting letter to DM Encounter Details Date Type Department Care Team Description 01/04/2018 Telephone [facility] Annette Alvarez Patient Re quest for Clinic [place] KIM [facility] CNP Note/Letter (patient [id number] [facility] [id number] [place] [address] requesting letter to [facility]) [phone] Social History Tobacco Use Types Packs/Day Years Used Date Smoking Tobacco: Never Smokeless Tobacco: Never Alcohol Use Standard Drinks/Week Comments Yes 0 (1 standard drink = 0.6 oz pure alcoho l) rare Sex Assigned at Date Recorded Female 03/04/2020 12:33 PM 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 Need to inform of all recommendations as [...] while driving. 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 Her blood sugar dropped while driving home. She was driving [place]al[place] and 911 was called by several people. She eventually ended up driving thewrong way on a one way. Police were able to get her to washing machine loader and puller and determined her BG was in the 20's and were able to treat her. Patient saw her primary outside of [facility] so there is no documentation in her [facility] chart. The letter written by her primary has not been accepted by the [place] [employer]. Patient was pulled over yesterday and was told by the officer that her license is under suspension. Patient has until 01/13/18 to submit a letter from her doctor stating that her diabetes is under goodcontrol, that she is safe to drive and is currently under the care of a physician/provider for her diabetes. The letter needs to be on [facility] Letter[facility] and needs to have the providers [...] is able to drive. Please call patient [phone]. Andreina Falcon Summer Sessions Director documented in this encounter Plan of Treatment Not on filedocumented as of this encounter Visit Diagnoses Not on filedocumented in this encounter Care Teams Suit Attendant Relationship Specialty Start Date End Date Ailabouni, Goran PCP - General Family Practice 12/29/17 05/21/[address] [address] Annette Alvarez, Nurse Practitioner Clinical Nurse Specialist 10/21/20 COMPANY MINER BLASTING AUTOMOTIVE DISMANTLER [address] [place] [address] documented as of this encounter
--- OUTSIDE RECORDS SUMMARY | 2022-02-24 11:09 | XMS_ITS | Encounter Summary ---
:1965 Author Organization [facility] Address [address] [facility] [place] [address] Care Team Providers Name Role Phone Annette Alvarezmamadou ALVAREZ HEALTH PSYCHOLOGIST Unavailable [phone] Goran Lloyd Primary Care Provider Reason for Visit Reason Onset Date Comments Forms 01/26/2018 DMV form insulin dep endent Encounter Details Date Type Department Care Team Description 01/26/2018 Telephone [facility] Annette Alvarez Forms (DMV form insulin Clinic [place] KIM Monroe HEALTH PSYCHOLOGIST dependent) [address] [place] [phone] Social History Tobacco Use Types Packs/Day Years Used Date Smoking Tobacco: Never Smokeless Tobacco: Never Alcohol Use Standard Drinks/Week Comments Yes 0 (1 standard drink = 0.6 oz pure alcoho l) rare Sex Assigned at Date Recorded Female 03/04/2020 12:33 PM EDUCATIONAL ASSISTANT TEACHER documented as of this encounter Miscellaneous Notes Telephone Encounter - Mimi Cyr CMA - 01/26/2018 1:32 PM CDT Insulin-Treated Diabetes Mellitus Report form completed and faxed to the [place] Department [employer] Public [employer] at fax# [phone]. (ph#[phone]) Original given to patient. Copy sent to abstracting to be entered into the EMR. Mimi Cyr M.A. documented in this encounter Plan of Treatment Not on filedocumented as of this encounter Visit Diagnoses Not on filedocumented in this encounter Care Teams Mold Sprayer Relationship Specialty Start Date End Date Goran lLoyd PCP - General Family Practice 12/29/17 05/21/[address] [address] Annette Alvarez, Nurse Practitioner Clinical Nurse Specialist 10/21/20 TECHNICIAN TEST SYSTEMS HEALTH PSYCHOLOGIST [address] [place] [address] documented as of this encounter
--- OUTSIDE RECORDS SUMMARY | 2022-02-24 11:09 | XMS_ITS | Encounter Summary ---
:1965 Author Organization [facility] Address [address] [facility] [place] [address] Care Team Providers Name Role Phone No Ref-Primary, Physician Primary Care Provider Annette Alvarez APRN AC/DC REWINDER Unavailable [phone] Reason for Visit Reason Onset Date Comments Prior Auth - Medication 06/27/2017 Contrave APPROVE D Encounter Details Date Type Department Care Team Description 06/27/2017 Telephone [facility] Annette Alvarez Prior Auth - Medication Clinic [place] KIM [facility] CNP (Contrave APPROVED) [address] [place] [phone] [phone] Social History Tobacco Use Types Packs/Day Years Used Date Smoking Tobacco: Never Smokeless Tobacco: Never Alcohol Use Standard Drinks/Week Comments Yes 0 (1 standard drink = 0.6 oz pure alcoho l) rare Sex Assigned at Date Recorded Female 03/04/2020 12:33 PM DIRECTOR ENTERPRISE DATA ARCHITECTURE documented as of this encounter Miscellaneous Notes Telephone Encounter - Amandeep Proi - 06/29/2017 12:17 PM CDT Images from the original note were not included. Prior Authorization Approval Authorization Effective Date: 06/29/2017 Authorization Expiration Date: 10/29/2017 Medication: Contrave APPROVED Approved Dose/Quantity: 120/30 days Reference #: [id number] Insurance Company: [employer] - Expected CoPay: $25.00 Which Pharmacy is filling the prescription (Not needed for infusion/clinic administered): [facility] [address] [place] [address] [address] Pharmacy Notified: Yes Patient Notified: Yes Telephone Encounter - Lynsey Pro - 06/29/2017 9:00 AM CDT Images from the original note were not included. PA Initiation Medication: Contrave Insurance Company: [employer] - Pharmacy Filling the Rx: [facility] [id number] [facility] [id number] Filling Pharmacy Filling Pharmacy Fax: Start Date: 06/29/2017 Central Prior Authorization Team Telephone Encounter - Karley Kessler CMA - 06/28/2017 1:48 PM CDT PA request routed to [facility]. Waiting to hear back. Karley Kessler CMA Telephone Encounter - Karley Kessler CMA - 06/28/2017 1:31 PM CDT Prior Authorization Retail Medication Request Medication/Dose: Contrave ICD code (if different than what is on RX): Previously Tried and Failed: See below Rationale: Insurance Name: [employer] Pharmacy Information (if different than what is [...] filedocumented in this encounter Care Teams Boat Oar Maker Relationship Specialty Start Date End Date No Ref-Primary, PCP - General 12/25/14 12/28/17 Physician Annette Alvarez, Nurse Practitioner Clinical Nurse Specialist 10/21/20 KIM RODRIGUEZ [address] [place] [address] documented as of this encounter
--- OUTSIDE RECORDS SUMMARY | 2022-02-24 11:09 | XMS_ITS | Encounter Summary ---
:1965 Author Organization [facility] Address [address] [place] [address]. 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
--- OUTSIDE RECORDS SUMMARY | 2022-02-24 11:09 | XMS_ITS | Encounter Summary ---
:1965 Author Organization [facility] Address [address] [place] [address]. [place] [address] Care Team Providers Name Role Phone Annette Alvarezmamadou ALVAREZ CD REACTOR OPERATOR Unavailable [phone] Goran Lloyd Primary Care Provider Reason for Visit Reason Onset Date Comments Nurse Advice Line 01/31/2018 labs Encounter Details Date Type Department Care Team Description 01/31/2018 Telephone [facility] Annette Alvarez Nurse Advi ce Line Clinic [place] KIM Monroe CD REACTOR OPERATOR (labs) [address] [place] [phone] [phone] Social History Tobacco Use Types Packs/Day Years Used Date Smoking Tobacco: Never Smokeless Tobacco: Never Alcohol Use Standard Drinks/Week Comments Yes 0 (1 standard drink = 0.6 oz pure alcoho l) rare Sex Assigned at Date Recorded Female 03/04/2020 12:33 PM PRIVATE DUTY AIDE documented as of this encounter Miscellaneous Notes Telephone Encounter - Quita Castillo RN - 01/31/2018 5:30 PM PRIVATE DUTY AIDE Clinic Action Needed: No FNA Triage Call Presenting Problem: Marnie returned phone call from VASQUEZ Orozco. Provided note to Marnie per [facility]. Marnie verbalized understanding and had no additional questions at this time. Routed to: route service representative Quita Castillo RN/FNA ATE DUTY AIDE Telephone Encounter - Pam Boudreaux RN - [...] Pam Boudreaux RN, BS Clinical Nurse Triage. ATE DUTY AIDE documented in this encounter Plan of Treatment Not on filedocumented as of this encounter Visit Diagnoses Not on filedocumented in this encounter Care Teams Sheet Metal Duct Installer Apprentice Relationship Specialty Start Date End Date Goran Lloyd PCP - General Family Practice 12/29/17 05/21/20 [facility] [address] [place] [address] Annette Alvarez, Nurse Practitioner Clinical Nurse Specialist 10/21/20 KIM RODRIGUEZ [address] [place] [address] documented as of this encounter
--- OUTSIDE RECORDS SUMMARY | 2022-02-24 11:09 | XMS_ITS | Encounter Summary ---
:1965 Author Organization [facility] Address [facility] [place] [address] Care Team Providers Name Role Phone Annette Alvarezmamadou ALVAREZ ED TEACHER Unavailable Goran Lloyd Primary Care Provider Jocelyn Davidson RD Unavailable Encounter Details Date Type Department Care Team Description 06/12/2018 Orders Only [facility] Annette Alvarez Type 1 rohan betes mellitus with complications (H) (Primary Dx); Clinic [place] KIM Monroe ED TEACHER Abdominal bloating [address] [place] [phone] Social History Tobacco Use Types Packs/Day Years Used Date Smoking Tobacco: Never Smokeless Tobacco: Never Alcohol Use Standard Drinks/Week Comments Yes 0 (1 standard drink = 0.6 oz pure alcoho l) rare Sex Assigned at Date Recorded Female 03/04/2020 12:33 PM BAGGAGE AND MAIL AGENT documented as of this encounter Plan of Treatment Not on filedocumented as of this encounter Visit Diagnoses Diagnosis Type 1 diabetes mellitus with complicati ons (H) - Primary Abdominal bloating Flatulence, eructation, and gas pain documented in this encounter Care Teams Day Light Relief Operator Relationship Specialty Start Date End Date Goran Lloyd PCP - General Family Practice 12/29/17 05/21/20 [address] [place] [address] Annette Alvarez, Nurse Practitioner Clinical Nurse 03/22/17 10/21/20 FACULTY MEMBER ED TEACHER Specialist [address] [place], [place] [id number] Jocelyn [address] RD Graduate Intern Dietitian, Registered 05/25/18 [facility] [place] [address] documented as of this encounter
--- OUTSIDE RECORDS SUMMARY | 2022-02-24 11:09 | XMS_ITS | Encounter Summary ---
:1965 Author Organization [place] Address [address] [place] [address]. [place] [address] Care Team Providers Name Role Phone Annette Alvarezmamadou ALVAREZ FILTERER Unavailable [phone] Goran Lloyd Primary Care Provider Reason for Visit Reason Onset Date Comments Medication Refill 03/25/2018 [facility] 1 MG kit Encounter Details Date Type Department Care Team Description 03/24/2018 Refill [facility] AlvarezAnnette, Medication Refill [place] SHEET METAL ERECTOR FILTERER ([facility] EMERG[facility]Y 1 MG 13610 [facility] [address] [facility] [place]) [place] [address] [phone] (Wo rk) Social History Tobacco Use Types Packs/Day Years Used Date Smoking Tobacco: Never Smokeless Tobacco: Never Alcohol Use Standard Drinks/Week Comments Yes 0 (1 standard drink = 0.6 oz pure alcoho l) rare Sex Assigned at Date Recorded Female 03/04/2020 12:33 PM CLERICAL COORDINATOR documented as of this encounter Miscellaneous Notes Telephone Encounter - Pam Boudreaux RN - 03/27/2018 3:55 PM CST Prescription approved per [facility] Refill Protocol Pam Boudreaux RN BS ICAL COORDINATOR Telephone Encounter - Lena Mcmahon - 03/25/2018 [...] 90 days) Mar 30, 2018 1:00 PM CLERICAL COORDINATOR Return Visit with Annette Alvarez APRN CNP [facility] [address] [facility] [address] ICAL COORDINATOR documented in this encounter Plan of Treatment [...] thyroid documented in this encounter Care Teams Tank Pumper Relationship Specialty Start Date End Date Goran Lloyd PCP - General Family Practice 12/29/17 05/21/20 [facility] [address] [place] [address] Annette Alvarez, Nurse Practitioner Clinical Nurse Specialist 10/21/20 KIM RODRIGUEZ [address] [place] [address] documented as of this encounter
--- OUTSIDE RECORDS SUMMARY | 2022-02-24 11:09 | XMS_ITS | Encounter Summary ---
:1965 Author Organization [place] Address [address] [facility] [place] [address] Care Team Providers Name Role Phone No Ref-Primary, Physician Primary Care Provider [phone] Annette Alvarez APRN SENIOR MAINFRAME PROGRAMMER ANALYST Unavailable [phone] Goran Lloyd Primary Care Provider Jocelyn Davidson RD Unavailable Tamar Murphy ENGINEERING TECHNICAL SPECIALIST SENIOR MAINFRAME PROGRAMMER ANALYST Unavailable Nikita Gamble Primary Care Provider Reason for Visit Reason Comments Consult Infectious Disease Encounter Details Date Type Department Care Team Description 10/13/2017 [facility] ([facility]fectious [facility] Fredy Pavon MD Disease) Patient Access [address] [address] [place], [place] [phone] [address] Social History Tobacco Use Types Packs/Day Years Used Date Smoking Tobacco: Never Smokeless Tobacco: Never Alcohol Use Standard Drinks/Week Comments Yes 0 (1 standard drink = 0.6 oz pure alcoho l) rare Sex Assigned at Date Recorded Female 03/04/2020 12:33 PM TOWER CLEANER COVID-19 Exposure Response Date Recorded In the last month, have you been in contact with No / Unsure 03/05/2020 11:41 AM TOWER CLEANER someone who was confirmed or suspected to have Coronavirus / COVID-19? documented as of this encounter Plan of Treatment Not on filedocumented as of this encounter Visit Diagnoses Not on filedocumented in this encounter Additional Health Concerns Infection Onset Date Last Indicated Resolved Time Rule Out COVID-19 02/26/2020 02/26/2020 02/27/2020 4:3 2 PM TOWER CLEANER documented as of this encounter Care Teams Front Desk Relationship Specialty Start Date End Date No Ref-Primary, PCP - General 12/25/14 12/28/17 Physician Goran Lloyd PCP - General Family Practice 12/29/17 05/21/20 [facility] [address] [place] [address] Nikita Gamble PCP - General [facility] 05/26/20 [facility] [address] [place] [address] Annette Alvarez, Nurse Practitioner Clinical Nurse 03/22/17 10/21/20 ENGINEERING TECHNICAL SPECIALIST SENIOR MAINFRAME PROGRAMMER ANALYST Specialist [address] [place], [place] [id number] Jocelyn Davidson [address] Body Team Member Dietitian, Registered 05/25/18 [facility] [address] [place] [address] [place] [address] Tamar Murphy APRN Assigned PCP 02/08/20 1 SENIOR MAINFRAME PROGRAMMER ANALYST [address] [place] [address] documented as of this encounter
--- OUTSIDE RECORDS SUMMARY | 2022-02-24 11:09 | XMS_ITS | Encounter Summary ---
:1965 Author Organization [place] Address [address] [place] [address]. [place] [address] Care Team Providers Name Role Phone No Ref-Primary, Physician Primary Care Provider [phone] Annette Alvarez HAND II TUBE BENDER PHOTO PRINTER Unavailable [phone] Reason for Visit Reason Onset Date Comments Refill Request 11/09/2017 levothyroxine (SYNTH ROID/LEVOTHROID) 175 MCG tablet Refill Request 11/09/2017 pregabalin (LYRICA) 75 MG capsule Encounter Details Date Type Department Care Team Description 11/09/2017 Refill [facility] Annette Alvarez, Refill Request [place] HAND II TUBE BENDER PHOTO PRINTER (levothyroxine [address] [facility] [address] [facility] (SYNTHROID/LEVOTHROID) [place], [place] 175 MCG tablet); Refill [phone] Request (pregabalin [phone] (Wo rk) (LYRICA) 75 MG capsule) Social History Tobacco Use Types Packs/Day Years Used Date Smoking Tobacco: Never Smokeless Tobacco: Never Alcohol Use Standard Drinks/Week Comments Yes 0 (1 standard drink = 0.6 oz pure alcoho l) rare Sex Assigned at Date Recorded Female 03/04/2020 12:33 PM 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 documented as of this encounter Miscellaneous [...] Yina Moss MD [facility] [address] [phone] 84 tablet 1 Sig: Take one tablet [...] Yina Moss MD [facility] ([facility] [address] [place] [address] [facility] [phone] 180 capsule 1 Sig: Take 1 capsule (75 mg) by mouth 2 times daily There is no refill protocol information for this order documented in this encounter Plan of Treatment Not on filedocumented as of this encounter Visit Diagnoses Diagnosis 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
--- OUTSIDE RECORDS SUMMARY | 2022-02-24 11:09 | XMS_ITS | Encounter Summary ---
:1965 Author Organization [place] Address [address] [facility] [place] [address] Care Team Providers Name Role Phone No Ref-Primary, Physician Primary Care Provider [phone] Annette Alvarez RECRUITING CONSULTANT CENTRIFUGAL SUPERVISOR Unavailable [phone] Reason for Visit Reason Onset Date Comments Diabetes No Show 12/22/2017 Encounter Details Date Type Department Care Team Description 12/22/2017 Office Visit [facility] GERALDO Moss SHOW (P rimary Dx) Clinic [place] MD Yina [address] [place] [address] 200 [address] [place] [address] Social History Tobacco Use Types Packs/Day Years Used Date Smoking Tobacco: Never Smokeless Tobacco: Never Alcohol Use Standard Drinks/Week Comments Yes 0 (1 standard drink = 0.6 oz pure alcoho l) rare Sex Assigned at Date Recorded Female 03/04/2020 12:33 PM INFORMATION AND REFERRAL DIRECTOR documented as of this encounter Progress Notes Yina Moss MD - 12/22/2017 10:05 AM CDT This patient was a no show for this scheduled appointment. documented in this encounter Plan of Treatment Not on filedocumented as of this encounter Visit Diagnoses Diagnosis NO SHOW - Primary documented in this encounter Care Teams Pallet Assembler Relationship Specialty Start Date End Date No Ref-Primary, PCP - General 12/25/14 12/28/17 Physician Annette Alvarez, Nurse Practitioner Clinical Nurse Specialist 10/21/20 RECRUITING CONSULTANT CENTRIFUGAL SUPERVISOR [address] [place] [address] documented as of this encounter
--- OUTSIDE RECORDS SUMMARY | 2022-02-24 11:09 | XMS_ITS | Encounter Summary ---
:1965 Author Organization [place] Address [address] [facility] [place] [address] Care Team Providers Name Role Phone Annette Alvarez APRN DISASTER RECOVERY SPECIALIST Unavailable [phone] Goran Lloyd Primary Care Provider Jocelyn Davidson RD Unavailable Reason for Visit Reason Onset Date Comments Forms 05/26/2018 Tandem pump Encounter Details Date Type Department Care Team Description 05/26/[address] [facility] Jocelyn Davidson, RENATA Forms (Tandem pump) [address] [phone] Social History Tobacco Use Types Packs/Day Years Used Date Smoking Tobacco: Never Smokeless Tobacco: Never Alcohol Use Standard Drinks/Week Comments Yes 0 (1 standard drink = 0.6 oz pure alcoho l) rare Sex Assigned at Date Recorded Female 03/04/2020 12:33 PM MANUFACTURING ENGINEERING DIRECTOR documented as of this encounter Miscellaneous Notes Telephone Encounter - Jocelyn Davidson, RENATA - 05/26/2018 3:21 PM CST Images from the original note were not included. Patient filled out Tandem AOB after CDE visit 05/25/18. Forms faxed on 05/26/18- follow up e-mail also sent to Barber Corona and Michelle Mary at [facility]. Original forms with Mimi Cyr MA/ Annette Alvarez NP. [employer] message sent to Marnie as fyi. Jocelyn Davidson RD, CDE Diabetes Project Builder FACTURING ENGINEERING DIRECTOR documented in this encounter Plan of Treatment Not on filedocumented as of this encounter Visit Diagnoses Not on filedocumented in this encounter Care Teams Info Specialist Relationship Specialty Start Date End Date Goran Lloyd PCP - General Family Practice 12/29/17 05/21/20 [facility] [address] [place] [address] Annette Alvarez, Nurse Practitioner Clinical Nurse 03/22/17 10/21/20 WELDING INSTRUCTOR DISASTER RECOVERY SPECIALIST Specialist [address] [place] [address] Corset Fitter Dietitian, Registered 05/25/18 [facility] Kaleigh S[place]O [facility] [place] [address] documented as of this encounter
--- OUTSIDE RECORDS SUMMARY | 2022-02-24 11:09 | XMS_ITS | Encounter Summary ---
:1965 Author Organization [facility] Address [address] [place] [address]. [place] [address] Care Team Providers Name Role Phone Antonio Annette Monroe APRN ENDOCRINOLOGY PHYSICIAN Unavailable [phone] Goran Lloyd Primary Care Provider Reason for Visit Reason Onset Date Comments Refill Request 02/08/2018 metFORMIN (GLUCOPHAG E-XR) 500 MG 24 hr tablet (Discontinued) Encounter Details Date Type Department Care Team Description 02/08/2018 Refill [facility] Annette Alvarez, Refill Request [place] MUTTON PUNCHER ENDOCRINOLOGY PHYSICIAN (metFORMIN [address] [facility] [address] [place] [address] (GLUCOPHAGE-XR) 500 MG [place], [place] 24 hr t ablet [phone] (Discontinued)) [phone] (Wo rk) Social History Tobacco Use Types Packs/Day Years Used Date Smoking Tobacco: Never Smokeless Tobacco: Never Alcohol Use Standard Drinks/Week Comments Yes 0 (1 standard drink = 0.6 oz pure alcoho l) rare Sex Assigned at Date Recorded Female 03/04/2020 12:33 PM ZANJERO documented as of this encounter Miscellaneous Notes Telephone Encounter - Maye Souza RN - 02/09/2018 10:37 AM CST Images from the original note were not included. Refill request for Metformin. This was dc'd 01/31/18 due to her creatinine. See below. Note to pharmacy. Maye Souza RN Biguanide Agents Knqtwu10/14 11:23 AM Patient has documented LDL within the past 12 mos. Patient's CR is NOT>1.4 OR Patient's EGFR is NOT<45 within past 12 mos. Quita Castillo RN ?? 01/31/18 5:30 PM Note Clinic Action Needed: No FNA Triage Call Presenting Problem: Marnie returned phone call from VASQUEZ Orozco. Provided note to Marnie per [facility]. Marnie verbalized understanding and had no additional questions at this time. ?? Routed to: VASQUEZ Minaya ?? Quita Castillo RN/FNA ? 01/31/18 5:29 PM Marnie Duvall contacted Quita Castillo RN ? 01/31/18 8:50 AM Pam Boudreaux, VASQUEZ routed this conversation to Cr Triage Pam Boudreaux RN ?? 01/31/18 8:49 AM Note Notes Recorded by Annette Alvarez APRN ENDOCRINOLOGY PHYSICIAN on 01/30/2018 at 6:07 PM Please call [...] Boudreaux RN, BS Clinical Nurse Triage. ?? ERO Telephone Encounter - Leslie Gamble - 02/08/2018 11:22 AM CST Discontinued Per Pharmacy patient has prescription from another pharmacy that are non [facility] becausethey have or have run out. metFORMIN (GLUCOPHAGE-XR) 500 MG 24 hr tablet (Discontinued) Last Written Prescription Date: 02/04/17-02/04/17 Last Fill Quantity: 90 tablet, # refills: 1 Last Office Visit: 01/26/18 Antonio Future Office visit: Next 5 appointments (look out 90 days) Mar 30, 2018 1:00 PM ZANJERO Return Visit with Annette Alvarez APRN CNP [facility] [address] [facility] [address] Routing refill request to provider for review/approval because: Drug not active on patient's medication list ERO documented in this encounter Plan of Treatment Not on filedocumented as of this encounter Visit Diagnoses Diagnosis Type 1 diabetes mellitus with complicati ons (H) documented in this encounter Care Teams Chemical Equipment Controller Relationship Specialty Start Date End Date Goran Lloyd PCP - General Family Practice 12/29/17 05/21/[address] [facility] [address] [place] [address] Annette Alvarez, Nurse Practitioner Clinical Nurse Specialist 10/21/20 KIM RODRIGUEZ [address] [place] [address] documented as of this encounter
--- OUTSIDE RECORDS SUMMARY | 2022-02-24 11:09 | XMS_ITS | Encounter Summary ---
:1965 Author Organization [place] Address [address] [place] [address]. [place] [address] Care Team Providers Name Role Phone Annette Alvarez APRN LACE PAPER MACHINE OPERATOR Unavailable [phone] Goran Lloyd Primary Care Provider Reason for Visit Reason Comments Medication Refill NOVOLOG FLEXPEN 100 UNIT/ML soln Encounter Details Date Type Department Care Team Description 05/10/2018 Refill [facility] Annette Alvarez, Medication Refill [place] ACADEMIC INTERVENTIONIST LACE PAPER MACHINE OPERATOR (NOVOLOG FLEXPEN 100 [address] [facility] [address] [place] [address] AV UNIT/ML soln) [place] [address] [phone] (Wo rk) Social History Tobacco Use Types Packs/Day Years Used Date Smoking Tobacco: Never Smokeless Tobacco: Never Alcohol Use Standard Drinks/Week Comments Yes 0 (1 standard drink = 0.6 oz pure alcoho l) rare Sex Assigned at Date Recorded Female 03/04/2020 12:33 PM FARM OPERATIONS MANAGER documented as of this encounter Miscellaneous Notes Telephone Encounter - Maye Souza RN - 05/12/2018 2:10 PM CST [facility] calling. Need to add max total daily dose. .kf OPERATIONS MANAGER Telephone Encounter - Annette Alvarez APRN CNP - 05/12/2018 1:46 PM FARM OPERATIONS MANAGER Please call and have her schedule a follow up visit. Annette Alvarez NP Endocrinology OPERATIONS MANAGER Telephone Encounter - Maye Souza RN - 05/12/2018 9:37 AM CST Images from the original note were not included. Failing below. No upcoming appt. No showed 04/19/18 appt, cancelled 03/30/18 appt. Frequently no shows or cancels. No show rate is 56%. Sent to provider. Please advise and route back to [facility] Maye Souza RN Short Acting Insulin Protocol Failed05/11 5:14 PM LDL on file in past 12 months HgbA1C in past 3 or 6 months OPERATIONS MANAGER Telephone Encounter - GambleLeslie - 05/11/2018 5:13 [...] & Orders section of the refill encounter. OPERATIONS MANAGER documented in this encounter Plan of Treatment Not on filedocumented as of this encounter Visit Diagnoses Diagnosis Type 1 diabetes mellitus with complicati ons (H) Uncontrolled type 1 diabetes mellitus wi th stage 3 chronic kidney disease Type I (juvenile type) diabetes mellitus with renal manifestations, uncontrolled PCOS (polycystic ovarian syndrome) Polycystic ovaries documented in this encounter Care Teams Inoculator Relationship Specialty Start Date End Date Goran Lloyd PCP - General Family Practice 12/29/17 05/21/20 [facility] [address] [place] [address] Annette Alvarez, Nurse Practitioner Clinical Nurse Specialist 10/21/20 ACADEMIC INTERVENTIONIST LACE PAPER MACHINE OPERATOR [address] [place] [address] documented as of this encounter
--- OUTSIDE RECORDS SUMMARY | 2022-02-24 11:09 | XMS_ITS | Encounter Summary ---
:1965 Author Organization [place] Address [address] [facility] [place] [address] Care Team Providers Name Role Phone Annette Alvarezmamadou ALVAREZ SHIPPER Unavailable [phone] Goran Lloyd Primary Care Provider Jocelyn Davidson RD Unavailable Reason for Visit Reason Onset Date Comments Forms 06/27/2018 [facility] t-slim reques t Encounter Details Date Type Department Care Team Description 06/27/[address] [facility] Annette Alvarez Forms ([facility] t-slim Clinic [facility] KIM Monroe SHIPPER request) [address] [address] [phone] Social History Tobacco Use Types Packs/Day Years Used Date Smoking Tobacco: Never Smokeless Tobacco: Never Alcohol Use Standard Drinks/Week Comments Yes 0 (1 standard drink = 0.6 oz pure alcoho l) rare Sex Assigned at Date Recorded Female 03/04/2020 12:33 PM LEGAL EXAMINER documented as of this encounter Miscellaneous Notes Telephone Encounter - Mimi Cyr CMA - 06/29/2018 11:08 AM CDT Statement of Medical Necessity, last clinic note dated 01/26/18 and the last two Hgb A1c labs faxed to [facility] at fax# [phone]. Patient notified via MyChart. Mimi Cyr CMA on 06/29/2018 at 11:10AM Telephone Encounter - Annette Alvarez APRN CNP - 06/28/2018 1:34 PM CDT Form completed and signed. Annette Alvarez NP Endocrinology Telephone Encounter - Mimi Cyr CMA - 06/27/2018 10:04 AM CDT Received Statement of Medical Necessity and Prescription Order form from [facility] for a T-slim insulinpump. Dx: E10.65 [facility] Diabetes Care Team ph# [phone] opt.2 . Fax completed form and recent diabetic chart notes that state patient is actively using or has been recommended the use of an insulin pump and completed a diabetes education program (REQUIRED) to #[phone]. Form on Annette Alvarez's desk. Mimi Cyr M.A. documented in this encounter Plan of Treatment Not on filedocumented as of this encounter Visit Diagnoses Not on filedocumented in this encounter Care Teams Elevator Technician Relationship Specialty Start Date End Date Goran Lloyd PCP - General Family Practice 12/29/17 05/21/20 [facility] [address] [place] [address] Annette Alvarez, Nurse Practitioner Clinical Nurse 03/22/17 10/21/20 KEYBOARD OPERATOR SHIPPER Specialist [address] [place] [address] Aircraft Fueler Dietitian, Registered 05/25/18 [facility] [address] [place] [address] SHARAN CARSON [address] documented as of this encounter
--- OUTSIDE RECORDS SUMMARY | 2022-02-24 11:09 | XMS_ITS | Encounter Summary ---
:1965 Author Organization [place] Address [address] [place] [address]. [place] [address] Care Team Providers Name Role Phone No Ref-Primary, Physician Primary Care Provider [phone] Reason for Visit Reason Onset Date Comments No Show Diabetes Education No Show 12/10/2016 Encounter Details Date Type Department Care Team Description 12/10/2016 [facility] Yadira Garcia No Show; Diabetes Health/Nurse Clinic Emmy Lewis RN Education; No Show Visit [address] [facility] [phone] [place], [place] (Work) [address] Social History Tobacco Use Types Packs/Day Years Used Date Smoking Tobacco: Never Smokeless Tobacco: Never Alcohol Use Standard Drinks/Week Comments Yes 0 (1 standard drink = 0.6 oz pure alcoho l) rare Sex Assigned at Date Recorded Female 03/04/2020 12:33 PM CHILD CARE GROUP LEADER documented as of this encounter Progress Notes Yadira Garcia RN - 12/10/2016 1:57 PM CDT This patient was a no show for this scheduled appointment. documented in this encounter Plan of Treatment Not on filedocumented as of this encounter Visit Diagnoses Diagnosis NO SHOW - Primary documented in this encounter Care Teams Sample Steamer Relationship Specialty Start Date End Date No Ref-Primary, Physician PCP - General 12/25/14 12/28/17 documented as of this encounter
--- OUTSIDE RECORDS SUMMARY | 2022-02-24 11:09 | XMS_ITS | Encounter Summary ---
:1965 Author Organization [place] Address [address] [facility] [place] [address] Care Team Providers Name Role Phone Lashae Alvarez KIM RODRIGUEZ Unavailable [phone] Goran Lloyd Primary Care Provider Reason for Visit Reason Comments Diabetes discuss Hypoglycemia event 2 017 and DMV letter Encounter Details Date Type Department Care Team Description 01/26/[address] [facility] Lashae Alvarez Type 1 rohan radha mellitus with complications (H) (Primary Dx); [facility] [place] KIM Monroe CNP Acquired hypothyroidism; [address] [place] [id number] [place] [address] 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 [address] [phone] Social History Tobacco Use Types Packs/Day Years Used Date Smoking Tobacco: Never Smokeless Tobacco: Never Alcohol Use Standard Drinks/Week Comments Yes 0 (1 standard drink = 0.6 oz pure alcoho l) rare Sex Assigned at Date Recorded Female 03/04/2020 12:33 PM FINANCIAL OPERATIONS CONSULTANT documented as of this encounter Last [...] have any questions. 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 Prevention: Flu Shot- Pneumovax- recommended Opthalmology-yes [...] in March 2018. Lashae Alvarez NP Endocrinology [facility] CC: documented in this encounter Miscellaneous Notes Addendum Note - Lashae Avlarez APRN CNP - 01/30/2018 6:08 PM FINANCIAL OPERATIONS CONSULTANT Addended by: LASHAE ALVAREZ on: 01/30/2018 06:08 PM Modules accepted: Orders NCIAL OPERATIONS CONSULTANT documented in this encounter Plan of [...] T4 Free 1.12 0.76 - 1.46 01/26/2018 [facility] ng/dL 5:16 PM CDT [facility] Specimen Anatomical Collection Method Collection Time Receive d Time (Source) Location / / Volume Laterality Blood specimen 01/26/2018 12:33 8 (specimen) PM CDT 12:34 PM CDT Lashae Alvarez APRN, CNP LAB - BLOOD ORDERABLES Performing Organization Address City/[facility]/ZIP Code Phon e Number [facility] [address] [place] [address] (ABNORMAL) TSH (01/26/2018 12:33 PM CDT) P athologist Signature TSH 0.09 (L) 0.40 - 01/26/2018 [facility] 4.00 mU/L 5:16 PM CDT [facility] Specimen Anatomical Collection Method Collection Time Receive d Time (Source) Location / / Volume Laterality Blood specimen 01/26/2018 12:33 8 (specimen) PM CDT 12:34 PM CDT Lashae Alvarez APRN, CNP LAB - BLOOD ORDERABLES Performing Organization Address City/[facility]/ZIP Code Phon e Number [facility] [address] [place] [address] (ABNORMAL) Basic metabolic panel (01/26/2018 12:33 PM CDT) Analysis Performed At Patho logist Time Signature Sodium 141 133 - 144 01/26/2018 [facility] mmol/L 5:08 PM CDT CLINICS [facility] Potassium 4.5 3.4 - 5.3 01/26/2018 [facility] mmol/L 5:08 PM CDT [facility] Chloride 107 94 - 109 01/26/2018 [facility] mmol/L 5:08 PM [facility] Carbon Dioxide 26 20 - 32 01/26/2018 [facility] mmol/L 5:08 PM [facility] Anion Gap 8 3 - 14 01/26/2018 [facility] mmol/L 5:08 PM [facility] Glucose 140 (H) 70 - 99 01/26/2018 [facility] mg/dL 5:08 PM [facility] Comment: Non Fasting Urea Nitrogen 19 7 - 30 mg/dL 01/26/2018 5:08 PM [facility] Creatinine 1.47 (H) 0.52 - 1.04 01/26/2018 5:08 PM [facility] mg/dL [facility] GFR Estimate 37 (L) >60 mL/min/1.7m2 01/26/2018 5:08 PM F [facility] Comment: Non GFR Calc GFR Estimate If 45 (L) >60 mL/min/1.7m2 01/26/2018 5:08 P M [facility] Black [facility] Comment: GFR Calc Calcium 9.5 8.5 - 10.1 mg/dL 01/26/2018 5:08 PM T [facility] Specimen Anatomical Collection Method Collection Time Receive d Time (Source) Location / / Volume Laterality Blood specimen 01/26/2018 12:33 8 (specimen) PM CDT 12:34 PM CDT Lashae Alvarez APRN EXCEPTIONAL CHILDREN TEACHER ASSISTANT LAB - BLOOD ORDERABLES Performing Organization Address City/State/ZIP Code Phon e Number [facility] [address] [place] [address] documented in this encounter Visit Diagnoses Diagnosis Type 1 diabetes mellitus with complicati ons (H) - Primary Acquired hypothyroidism Unspecified hypothyroidism 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
--- OUTSIDE RECORDS SUMMARY | 2022-02-24 11:09 | XMS_ITS | Encounter Summary ---
:1965 Author Organization [place] Address [address] [place] [address] Care Team Providers Name Role Phone Annette Alvarez APRN CLINIC DIRECTOR Unavailable Goran Lloyd Primary Care Provider Jocelyn Davidson RD Unavailable Reason for Visit Reason Comments Diabetes Education Encounter Details Date Type Department Care Team Description 05/25/2018 [facility] Jocelyn Davidson, Diabet es Education Health/[place] [address] [place] [address] [place] [phone] [place], [place] [id number] Social History Tobacco Use Types Packs/Day Years Used Date Smoking Tobacco: Never Smokeless Tobacco: Never Alcohol Use Standard Drinks/Week Comments Yes 0 (1 standard drink = 0.6 oz pure alcoho l) rare Sex Assigned at Date Recorded Female 03/04/2020 12:33 PM DIRECTOR OF VOLUNTEER SERVICES documented as of this encounter Progress Notes Jocelyn Davidson, RD - 05/25/2018 11:30 AM CST Images from the original note were not included. Diabetes Self-Management Education & Support SUBJECTIVE/OBJECTIVE Diabetes education in the past 24mo: Yes Diabetes type: Type 1 Disease course: Getting harder to manage Diabetes management related comments/concerns: getting my A1C to a normal level Cultural Influences/Ethnic Background: Citizen Of [place] Patient seen today for Insulin Pump Pre-Start: [...] prior to insulin pump start. Healthy Eating Cultural/adventist diet restrictions?: No Meal planning: Carbohydrate counting [...] IQ pump. Jocelyn Davidson RD, CDE Diabetes Loss Control Engineer Time Spent: 60 minutes Encounter Type: Individual Any diabetes medication dose changes were made via the CDE Protocol and Collaborative Practice Agreement with the patient's endocrinology provider. A copy of this encounter was shared with the provider. CTOR OF VOLUNTEER SERVICES documented in this encounter Plan of Treatment Not on filedocumented as of this encounter Visit Diagnoses Diagnosis Type 1 diabetes mellitus with complicati ons (H) - Primary documented in this encounter Care Teams Route Driver Salesperson Relationship Specialty Start Date End Date Goran Lloyd PCP - General Family Practice 12/29/17 05/21/[address] [address] Annette Alvarez, Nurse Practitioner Clinical Nurse 03/22/17 10/21/20 CARDIAC CATHETERIZATION TECHNOLOGIST CLINIC DIRECTOR Specialist [address] [place], [place] [id number] Jocelyn Davidson RD Supervisor Pastry Dietitian, Registered 05/25/18 [facility] [place] [address] [place] [address] documented as of this encounter
--- OUTSIDE RECORDS SUMMARY | 2022-02-24 11:09 | XMS_ITS | Encounter Summary ---
:1965 Author Organization [place] Address [address] [place] [address]. [place] [address] Care Team Providers Name Role Phone Antonio Annette Mabel QUALITY CONTROL TECHNICIAN HAIRSPRING TRUING INSPECTOR Unavailable [phone] Goran Lloyd Primary Care Provider Reason for Visit Reason Comments Medication Refill Encounter Details Date Type Department Care Team Description 01/12/2018 Refill [facility] Annette Alvarez, Medication Refill [place] QUALITY CONTROL TECHNICIAN HAIRSPRING TRUING INSPECTOR [address] [phone] [place] [address] (Wo rk) Social History Tobacco Use Types Packs/Day Years Used Date Smoking Tobacco: Never Smokeless Tobacco: Never Alcohol Use Standard Drinks/Week Comments Yes 0 (1 standard drink = 0.6 oz pure alcoho l) rare Sex Assigned at Date Recorded Female 03/04/2020 12:33 PM FLIGHT FOLLOWER documented as of this encounter Miscellaneous Notes [...] (H) documented in this encounter Care Teams Lean Manager Relationship Specialty Start Date End Date Goran Lloyd PCP - General Family Practice 12/29/17 05/21/[address] [address] Annette Alvarez, Nurse Practitioner Clinical Nurse Specialist 10/21/20 QUALITY CONTROL TECHNICIAN HAIRSPRING TRUING INSPECTOR [address] [place] [address] documented as of this encounter
--- OUTSIDE RECORDS SUMMARY | 2022-02-24 11:09 | XMS_ITS | Encounter Summary ---
:1965 Author Organization [place] Address [address] [place] [address]. [place] [address] Care Team Providers Name Role Phone Annette Alvarez KIM RODRIGUEZ Unavailable Goran Lloyd Primary Care Provider Reason for Visit Reason Onset Date Comments Patient Request 03/27/2018 Suspended License Encounter Details Date Type Department Care Team Description 03/27/2018 Telephone [facility] Chay Alvareza Patient Re [facility] KIM Monroe DIRECTORY CLERK (Suspended License) [address] [place] [phone] Social History Tobacco Use Types Packs/Day Years Used Date Smoking Tobacco: Never Smokeless Tobacco: Never Alcohol Use Standard Drinks/Week Comments Yes 0 (1 standard drink = 0.6 oz pure alcoho l) rare Sex Assigned at Date Recorded Female 03/04/2020 12:33 PM ACCESS SERVICES ASSISTANT documented as of this encounter Miscellaneous Notes Telephone Encounter - Mimi Cyr CMA - 03/29/2018 1:51 PM CST Completed letter and copy of the diabetes tram driver form that was signed and faxed on 01/26/18 mailed to the patient. Included a copy of the letter for the patient's own files. Left a voicemail stating that the requested letter was mailed to her home address. Mimi Cyr CMA on 03/29/2018 at 1:53 PM SS SERVICES ASSISTANT Telephone Encounter - Annette Alvarez APRN CNP - 03/29/2018 1:38 PM ACCESS SERVICES ASSISTANT Letter completed. Annette Alvarez NP Endocrinology SS SERVICES ASSISTANT Telephone Encounter - Mimi Cyr CMA - [...] to drive and was faxed to the [place] [employer]: Signal Repairer and Vehicle [employer]. In addition to having the form faxed, patientstates she keeps a copy with her in the car. Has a future appointment scheduled for her routine diabetic follow-up on 04/19/18. Patient would like this letter mailed to her home. She will be bringing the letter with her to court. Please advise. Ok to leave a detailed message on her voicemail at [phone]. Mimi Cyr CMA on 03/29/2018 at 1:22 PM SS SERVICES ASSISTANT Telephone Encounter - Ramila Mejia - 03/27/2018 [...] Alvarez or her nurse-please call her at [phone]. SS SERVICES ASSISTANT documented in this encounter Plan of Treatment Not on filedocumented as of this encounter Visit Diagnoses Not on filedocumented in this encounter Care Teams Airplane Pilot Helper Relationship Specialty Start Date End Date Goran Lloyd PCP - General Family Practice 12/29/17 05/21/20 [facility] [address] [place] [address] Annette Alvarez, Nurse Practitioner Clinical Nurse Specialist 10/21/20 CALENDER RUNNER DIRECTORY CLERK [address] [place] [address] documented as of this encounter
--- OUTSIDE RECORDS SUMMARY | 2022-02-24 11:09 | XMS_ITS | Encounter Summary ---
:1965 Author Organization [place] Address [address] [place] [address]. [place] [address] Care Team Providers Name Role Phone No Ref-Primary, Physician Primary Care Provider [phone] Encounter Details Date Type Department Care Team Description 02/25/2017 Orders Only [facility] Typ e 1 diabetes mellitus with complications (H); [facility] Uncontrolled type 1 diabetes mellitus with stage 3 chronic kidney disease (H); [address] [facility] Flatulence, eructation, and gas pain; [place] PCOS (polyc ystic ovarian syndrome) [phone] Social History Tobacco Use Types Packs/Day Years Used Date Smoking Tobacco: Never Smokeless Tobacco: Never Alcohol Use Standard Drinks/Week Comments Yes 0 (1 standard drink = 0.6 oz pure alcoho l) rare Sex Assigned at Date Recorded Female 03/04/2020 12:33 PM INSPECTOR DIALS documented as of this encounter Progress Notes Annette Alvarez APRN CNP - 02/27/2017 2:18 PM CST Please mail comments and results to the patient. Marnie, Your kidney test is still elevated but the potassium is now normal. Your A1c is better, decreased from 7.8%. Here's a copy of the results for your records. Annette Alvarez NP Endocrinology [facility] documented in this encounter Plan of Treatment Not on filedocumented as of this encounter Procedures Procedure Name Priority Date/Time Associated Diagnosis Comme nts HEMOGLOBIN A1C Routine 02/25/2017 12:05 Type 1 diabetes Result s for this PM INS[facility]OR DIALS mellitus with procedure are in complications (H ) the results Uncontrolled type 1 section. diabetes mellitus with stage 3 chronic kidney disease (H) Flatulence, eructation, and gas pain BASIC METABOLIC Routine 02/25/2017 12:05 Type 1 diabetes Resul ts for this PANEL PM INSPECTOR DIALS mellitus with procedure are in complications (H ) the results Uncontrolled type 1 section. diabetes mellitus with stage 3 chronic kidney disease (H) Flatulence, eructation, and gas pain PCOS (polycystic ovarian syndrome) documented in this encounter Results (ABNORMAL) Basic metabolic panel FUTURE 1yr (02/25/2017 12:05 PM INSPECTOR DIALS) [facility] Method Time Signature Sodium 138 133 - 144 02/26/2017 [facility] mmol/L 11:18 AM [facility] Potassium 4.9 3.4 - 5.3 02/26/2017 [facility] mmol/L 11:18 AM [facility] Chloride 106 94 - 109 02/26/2017 [facility] mmol/L 11:18 AM [facility] Carbon Dioxide 20 20 - 32 02/26/2017 [facility] mmol/L 11:18 AM [facility] Anion Gap 12 3 - 14 02/26/2017 [facility] mmol/L 11:18 AM [facility] Glucose 157 (H) 70 - 99 02/26/2017 [facility] mg/dL 11:18 AM [facility] Urea Nitrogen 25 7 - 30 02/26/2017 [facility] mg/dL 11:18 AM [facility] Creatinine 1.60 (H) 0.52 - 02/26/2017 [facility] 1.04 11:18 AM [facility] mg/dL [facility] GFR Estimate 34 (L) >60 02/26/2017 [facility] mL/min/1. 11:18 AM [facility] 7m2 [facility] Comment: Non GFR Calc GFR Estimate If 41 (L) >60 mL/min/1.7m2 02/26/2017 11:18 AM [facility] Black [facility] Comment: GFR Calc Calcium 8.8 8.5 - 10.1 mg/dL 02/26/2017 11:18 AM INSPECTOR DIALS [facility] Specimen Anatomical Collection Method Collection Time Receive d Time (Source) Location / / Volume Laterality Blood specimen 02/25/2017 12:05 7 (specimen) PM INS[facility]OR [facility]S 12:06 PM [facility] Annette Alvarez APRN AIR GUN OPERATOR LAB - BLOOD ORDERABLES Performing Organization Address City/[facility]/ZIP Code Phon e Number [facility] [address] [place] [address] (ABNORMAL) Hemoglobin A1c (02/25/2017 12:05 PM INSPECTOR DIALS) P athologist Signature Hemoglobin A1C 7.6 (H) 4.3 - 6.0 02/25/2017 [facility] 12:21 PM INSPECTOR DIALS [facility] Specimen Anatomical Collection Method Collection Time Receive d Time (Source) Location / / Volume Laterality Blood specimen 02/25/2017 12:05 7 (specimen) PM [facility] 12:06 PM [facility] Annette Alvarez APRN, CNP LAB - BLOOD ORDERABLES Performing Organization Address City/[facility]/ZIP Code Phon e Number [facility] [address] [place] [address] documented in this encounter Visit Diagnoses Diagnosis Type 1 diabetes mellitus with complicati ons (H) Uncontrolled type 1 diabetes mellitus wi th stage 3 chronic kidney disease Type I (juvenile type) diabetes mellitus with renal manifestations, uncontrolled Flatulence, eructation, and gas pain PCOS (polycystic ovarian syndrome) Polycystic ovaries documented in this encounter Care Teams Shipping & Receiving Lead Relationship Specialty Start Date End Date No Ref-Primary, Physician PCP - General 12/25/14 12/28/17 documented as of this encounter
--- OUTSIDE RECORDS SUMMARY | 2022-02-24 11:09 | XMS_ITS | Encounter Summary ---
:1965 Author Organization [place] Address [facility]0 [facility] [place] [address] Care Team Providers Name Role Phone No Ref-Primary, Physician Primary Care Provider [phone] Reason for Visit Reason Comments Diabetes Encounter Details Date Type Department Care Team Description 02/04/[address] [facility] Lashae Alvarez Type 1 rohan betes mellitus with complications (H) (Primary Dx); Clinic [place] KIM Monroe [employer] POLICE LIEUTENANT Uncontrolled type 1 diabetes mellitus wi th stage 3 chronic kidney disease (H); [id number] [place] [address] Flatulence, eructation, and gas pain; [place], [place] PCOS (p olycystic ovarian syndrome) [id number] [phone] Social History Tobacco Use Types Packs/Day Years Used Date Smoking Tobacco: Never Smokeless Tobacco: Never Alcohol Use Standard Drinks/Week Comments Yes 0 (1 standard drink = 0.6 oz pure alcoho l) rare Sex Assigned at Date Recorded Female 03/04/2020 12:33 PM ASSISTANT ART DIRECTOR documented as of this encounter Last Filed Vital Signs Vital Sign Reading Time Taken Comments Blood Pressure 164/64 02/04/2017 9:19 AM ASSISTANT ART DIRECTOR Pulse 76 02/04/2017 9:19 AM ASSISTANT ART DIRECTOR Temperature 36.8 ??C (98.2 ??F) 02/04/2017 9:19 AM ASSISTANT ART DIRECTOR Respiratory Rate 16 02/04/2017 9:19 AM ASSISTANT ART DIRECTOR Oxygen Saturation - - Inhaled Oxygen Concentration - - Weight 112.7 kg (248 lb 6.4 oz) 02/04/2017 9:19 AM ASSISTANT ART DIRECTOR Height - - Body Mass Index 34.16 12/25/2014 9:45 PM CDT documented in this encounter Patient Instructions Patient InstructionsLashae Alvarez APRN CNP - 02/04/2017 9:00 AM ASSISTANT ART DIRECTOR We'll recheck creatinine today. If creatinine is [...] months after that. Lashae Alvarez NP Endocrinology STANT ART DIRECTOR documented in this encounter Progress Notes Lashae [...] results when available. Lashae Alvarez NP Endocrinology STANT ART DIRECTOR Lashae Alvarez APRN CNP - 02/04/2017 9:00 AM CST Images from the original note were not included. Name: Marnie Duvall F/u for Diabetes (Last seen 11/25/2016). HPI: aMrnie Duvall is a 51 year old female who presents for the evaluation/management of type 1 diabetes. 1. Type 1 DM: Originally diagnosed at the age of 88 years old. DKA: No Current Regimen: Tresiba 64 units qd, Novolog 1:10 + 1:20 >140. 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 Medication Reconciliation: complete STANT ART DIRECTOR documented in this encounter Miscellaneous Notes Addendum Note - Lashae Alvarez APRN [employer] POL[employer] LIEUTENANT - 02/13/2017 9:57 PM ASSISTANT ART DIRECTOR Addended by: LASHAE ALVAREZ on: 02/13/2017 09:57 PM Modules accepted: Orders STANT ART DIRECTOR documented in this encounter Plan of Treatment Not on filedocumented as of this encounter Procedures Procedure Name Priority Date/Time Associated Diagnosis Comme nts BASIC METABOLIC Routine 02/04/2017 10:30 Type 1 diabetes Resul ts for this PANEL AM ASSISTANT ART DIRECTOR mellitus with procedure are in complications (H ) the results Uncontrolled type 1 section. diabetes mellitus with stage 3 chronic kidney disease (H) Flatulence, eructation, and gas pain documented in this encounter Results (ABNORMAL) Basic metabolic panel FUTURE 1yr (02/25/2017 12:05 PM ASSISTANT ART DIRECTOR) [facility] Method Time Signature Sodium 138 133 - 144 02/26/2017 [facility] mmol/L 11:18 AM [facility] Potassium 4.9 3.4 - 5.3 02/26/2017 [facility] mmol/L 11:18 AM [facility] Chloride 106 94 - 109 02/26/2017 [facility] mmol/L 11:18 AM [facility] Carbon Dioxide 20 20 - 32 02/26/2017 [facility] mmol/L 11:18 AM [facility] Anion Gap 12 3 - 14 02/26/2017 [facility] mmol/L 11:18 AM [facility] Glucose 157 (H) 70 - 99 02/26/2017 [facility] mg/dL 11:18 AM [facility] Urea Nitrogen 25 7 - 30 02/26/2017 [facility] mg/dL 11:18 AM [facility] Creatinine 1.60 (H) 0.52 - 02/26/2017 [facility] 1.04 11:18 AM [facility] mg/dL [facility] GFR Estimate 34 (L) >60 02/26/2017 [facility] mL/min/1. 11:18 AM [facility] 7m2 [facility] Comment: Non GFR Calc GFR Estimate If 41 (L) >60 mL/min/1.7m2 02/26/2017 11:18 AM [facility] Black [facility] Comment: GFR Calc Calcium 8.8 8.5 - 10.1 mg/dL 02/26/2017 11:[address] [facility] Specimen Anatomical Collection Method Collection Time Receive d Time (Source) Location / / Volume Laterality Blood specimen 02/25/2017 12:05 7 (specimen) PM ASSISTANT ART DIRECTOR 12:06 PM ASSISTANT ART DIRECTOR Lashae Alvarez APRN [employer] LAB - BLOOD ORDERABLES Performing Organization Address City/[facility]/ZIP Code Phon e Number [facility] [address] [place] [address] (ABNORMAL) Hemoglobin A1c (02/25/2017 12:05 PM ASSISTANT ART DIRECTOR) P athologist Signature Hemoglobin A1C 7.6 (H) 4.3 - 6.0 02/25/2017 [facility] % 12:21 PM ASSISTANT ART DIRECTOR [facility] Specimen Anatomical Collection Method Collection Time Receive d Time (Source) Location / / Volume Laterality Blood specimen 02/25/2017 12:05 7 (specimen) PM ASSISTANT ART DIRECTOR 12:06 PM ASSISTANT ART DIRECTOR Lashae Alvarez APRN [employer] LAB - BLOOD ORDERABLES Performing Organization Address City/State/ZIP Code Phon e Number [facility] [address] [place] [address] (ABNORMAL) Basic metabolic panel (02/04/2017 10:30 AM ASSISTANT ART DIRECTOR) Analysis Performed At Patho logist Time Signature Sodium 140 133 - 144 02/05/2017 [facility] mmol/L 1:47 PM [facility] Potassium 5.6 (H) 3.4 - 5.3 02/05/2017 [facility] mmol/L 1:47 PM [facility] Chloride 106 94 - 109 02/05/2017 [facility] mmol/L 1:47 PM [facility] Carbon Dioxide 25 20 - 32 02/05/2017 [facility] mmol/L 1:47 PM [facility] Anion Gap 9 3 - 14 02/05/2017 [facility] mmol/L 1:47 PM [facility] Glucose 134 (H) 70 - 99 02/05/2017 [facility] mg/dL 1:47 PM [facility] Comment: Non Fasting Urea Nitrogen 16 7 - 30 mg/dL 02/05/2017 1:47 PM [facility] Creatinine 1.40 (H) 0.52 - 1.04 02/05/2017 1:47 PM [facility] mg/dL [facility] GFR Estimate 40 (L) >60 mL/min/1.7m2 02/05/2017 1:47 PM F [facility] Comment: Non GFR Calc GFR Estimate If 48 (L) >60 mL/min/1.7m2 02/05/2017 1:47 P M [facility] Black [facility] Comment: GFR Calc Calcium 9.3 8.5 - 10.1 mg/dL 02/05/2017 1:47 PM [facility] Specimen Anatomical Collection Method Collection Time Receive d Time (Source) Location / / Volume Laterality Blood specimen 02/04/2017 10:30 7 (specimen) AM ASSISTANT ART DIRECTOR 10:31 AM ASSISTANT ART DIRECTOR Lashae Alvarez WELFARE SUPERVISOR [employer] LAB - BLOOD ORDERABLES Performing Organization Address City/State/ZIP Code Phon e Number [facility] [address] [place] [address] documented in this encounter Visit Diagnoses Diagnosis Type 1 diabetes mellitus with complicati ons (H) - Primary Uncontrolled type 1 diabetes mellitus wi th stage 3 chronic kidney disease Type I (juvenile type) diabetes mellitus with renal manifestations, uncontrolled Flatulence, eructation, and gas pain PCOS (polycystic ovarian syndrome) Polycystic ovaries documented in this encounter Care Teams Environmental Engineering Manager Relationship Specialty Start Date End Date No Ref-Primary, Physician PCP - General 12/25/14 12/28/17 documented as of this encounter
--- OUTSIDE RECORDS SUMMARY | 2022-02-24 11:09 | XMS_ITS | Encounter Summary ---
:1965 Author Organization [place] Address [address] [place] [address]. [place] [address] Care Team Providers Name Role Phone Annette Alvarez APRN, CNP Unavailable [phone] Goran Lloyd Primary Care Provider Reason for Referral Patient Education - Closed Specialty Diagnoses / Procedures Referred By Contact Refer red To Contact Diagnoses Type 1 diabetes mellitus with complications (H) Annette Alvarez [facility] KMI RAYON TESTER [facility]0 [address] [address] [phone] Referral ID Status Reason Start Date Expiration Date Visits Requ ested Visits Authorized [id number] Closed 12/29/2017 12/29/2018 1 1 Reason for Visit Reason Comments Diabetes Flu Shot Encounter Details Date Type Department Care Team Description 12/29/2017 Office Visit [facility] Annette Nuñez Type 1 rohan garcia mellitus with complications (H) (Primary Dx); [facility] [place] APRN CNP Need for prophylactic vaccination and in oculation against influenza; [address] Uncontrolled type 1 diabetes mellitus wi th stage 3 chronic kidney disease (H); [place], [place] PCOS (p olycystic ovarian syndrome); [id number] 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 [phone] Social History Tobacco Use Types Packs/Day Years Used Date Smoking Tobacco: Never Smokeless Tobacco: Never Alcohol Use Standard Drinks/Week Comments Yes 0 (1 standard drink = 0.6 oz pure alcoho l) rare Sex Assigned at Date Recorded Female 03/04/2020 12:33 PM 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 Prevention: Flu Shot- Pneumovax- recommended Opthalmology-yes [...] RECOMBINANT VÁSQUEZ , IM (FluBlok, egg free) [67521]- >18 YRS (FMG [id number] YRS) ??? Vaccine Administration, Initial [07594] ??? Albumin Random Urine Quantitative with Creat Ratio ??? EARLY YEARS TEACHER REFERRAL Radiology/Consults ordered today: All questions were answered. The patient indicates understanding of the above issues and agrees withthe plan set forth. Total face to face time greater than or equal to 25 minutes. Follow-up: 3 month Annette Alvarez NP Endocrinology [facility] CC: documented in this encounter Plan [...] with Creat Ratio (12/29/2017 5:43 PM CDT) [facility] Method Time Signature Creatinine 56 mg/dL 12/30/2017 [facility] Urine 4:37 PM CDT [facility] Albumin Urine <5 mg/L 12/30/2017 [facility] mg/L 4:37 PM CDT [facility] Albumin Urine Unable to 0 - 25 12/30/2017 [facility] mg/g Cr calculate due mg/g Cr 4:37 PM CDT CLINICS to low value [facility] Specimen Anatomical Collection Method Collection Time Receive d Time (Source) Location / / Volume Laterality Urine specimen 12/29/2017 5:43 PM 018 5:44 (specimen) CDT PM CDT Annette Alvarez MANAGER TRANSIT RAYON TESTER LAB - URINE ORDERABLES Performing Organization Address City/State/ZIP Code Phon e Number [facility] [address] [place] [address] documented in this encounter Visit Diagnoses Diagnosis [...] thyroid documented in this encounter Care Teams Tablet Coater Relationship Specialty Start Date End Date Goran Lloyd PCP - General Family Practice 12/29/17 05/21/20 [facility] [address] [place] [address] Annette Alvarez, Nurse Practitioner Clinical Nurse Specialist 10/21/20 MANAGER TRANSIT RAYON TESTER [address] [place] [address] documented as of this encounter
--- OUTSIDE RECORDS SUMMARY | 2022-02-24 11:09 | XMS_ITS | Encounter Summary ---
:1965 Author Organization [place] Address [address] [place] [address]. [place] [address] Care Team Providers Name Role Phone Annette Alvarez PATIENT OFFICE REP INVENTORY AND PRICING ASSOCIATE Unavailable [phone] Goran Lloyd Primary Care Provider Jocelyn Davidson RD Unavailable Encounter Details Date Type Department Care Team Description 06/28/[address] 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 documented as of this encounter Plan of Treatment Not on filedocumented as of this encounter Visit Diagnoses Not on filedocumented in this encounter Care Teams Vp Ad Products And Planning Relationship Specialty Start Date End Date Goran Lloyd PCP - General Family Practice 12/29/17 05/21/20 [facility] [address] [place] [address] Annette Alvarez, Nurse Practitioner Clinical Nurse 03/22/17 10/21/20 PATIENT OFFICE REP INVENTORY AND PRICING ASSOCIATE Specialist [address] [place] [address] Television Antenna Installer Dietitian, Registered 05/25/18 [facility] [place] [address] [place] [address] documented as of this encounter
--- OUTSIDE RECORDS SUMMARY | 2022-02-24 11:09 | XMS_ITS | Encounter Summary ---
:1965 Author Organization [place] Address [address] [place] [address]. 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 documented as of this encounter Plan of Treatment Not on filedocumented as of this encounter Visit Diagnoses Not on filedocumented in this encounter Care Teams Choir Singer Relationship Specialty Start Date End Date Goran Lloyd PCP - General Family Practice 12/29/17 05/21/20 [facility] [address] [place] [address] Annette Alvarez, Nurse Practitioner Clinical Nurse 03/22/17 10/21/20 [facility] DOCK ATTENDANT VP DESIGN Specialist [address] [place], [place] [id number] Jocelyn Davidson RD Cold Meat Chef Dietitian, Registered 05/25/[address] [place] [address] documented as of this encounter
--- OUTSIDE RECORDS SUMMARY | 2022-02-24 11:09 | XMS_ITS | Encounter Summary ---
:1965 Author Organization [place] Address [address] [facility] [place] [address] Care Team Providers Name Role Phone No Ref-Primary, Physician Primary Care Provider [phone] Annette Alvarez APRN UNIVERSAL BRANCH CONSULTANT Unavailable [phone] Goran Lloyd Primary Care Provider Jocelyn Davidson RD Unavailable Tamar Murphy ACQUISITION LEAD UNIVERSAL BRANCH CONSULTANT Unavailable Nikita Gamble Primary Care Provider Reason for Visit Reason Comments Forms return to work Encounter Details Date Type Department Care Team Description 11/02/2017 [facility] Vu Isaacs, Fo dayan (return to 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 documented as of this encounter Plan of Treatment Not on filedocumented as of this encounter Visit Diagnoses Not on filedocumented in this encounter Additional Health Concerns Infection Onset Date Last Indicated Resolved Time Rule Out COVID-19 02/26/2020 02/26/2020 02/27/2020 4:3 2 PM CLINICAL PHARMACOLOGIST documented as of this encounter Care Teams Computer Aided Drafter Relationship Specialty Start Date End Date No Ref-Primary, PCP - General 12/25/14 12/28/17 Physician Goran Lloyd PCP - General Family Practice 12/29/17 05/21/20 [facility] [address] [place] [address] Nikita Gamble PCP - General [facility] 05/26/20 [facility] [address] [place] [address] Annette Alvarez, Nurse Practitioner Clinical Nurse 03/22/17 10/21/20 ACQUISITION LEAD UNIVERSAL BRANCH CONSULTANT Specialist [address] [place], [place] [id number] Jocelyn Davidson RD Exposure Machine Operator Dietitian, Registered 05/25/18 [facility] [place] [facility] [place] [address] Tamar Murphy APRN Assigned PCP 02/08/20 1 UNIVERSAL BRANCH CONSULTANT [address] [place] [address] documented as of this encounter
--- OUTSIDE RECORDS SUMMARY | 2022-02-24 11:09 | XMS_ITS | Encounter Summary ---
:1965 Author Organization [place] Address [address] [place] [address]. [place] [address] Care Team Providers Name Role Phone No Ref-Primary, Physician Primary Care Provider [phone] Annette Alvarez APRN SUPPORT STAFF Unavailable Reason for Visit Reason Comments Diabetes Encounter Details Date Type Department Care Team Description 06/17/2017 Office Visit [facility] Annette Alvarez Type 1 rohan radha mellitus with complications (H) (Primary Dx); Clinic [place] KIM Monroe SUPPORT STAFF Abnormal weight gain; [id number] [place] [address] Morbid obesity (H); [place], [place] Diabeti c polyneuropathy associated with type 1 diabetes mellitus (H); [id number] 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 [phone] Social History Tobacco Use Types Packs/Day Years Used Date Smoking Tobacco: Never Smokeless Tobacco: Never Alcohol Use Standard Drinks/Week Comments Yes 0 (1 standard drink = 0.6 oz pure alcoho l) rare Sex Assigned at Date Recorded Female 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 ago - was having severe pain prior to surgery, thinks due topolycystic kidney disease Lives in [place] Very distressed about weight gain and inability [...] Follow-up: 1 month Annette Alvarez NP Endocrinology [facility] CC: documented in this encounter Plan of Treatment Not on filedocumented as of this encounter Visit Diagnoses Diagnosis Type 1 diabetes mellitus with complicati ons (H) - Primary Abnormal weight gain Morbid obesity (H) Morbid obesity Diabetic polyneuropathy associated with type 1 diabetes mellitus (H) 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
--- OUTSIDE RECORDS SUMMARY | 2022-02-24 11:09 | XMS_ITS | Encounter Summary ---
:1965 Author Organization [place] Address [facility] [place] [address] Care Team Providers Name Role Phone No Ref-Primary, Physician Primary Care Provider Annette Alvarez APRN BEEKEEPER FARMER Unavailable [phone] Reason for Visit Reason Onset Date Comments Appointment 10/19/2017 Encounter Details Date Type Department Care Team Description 10/19/2017 Telephone [facility]ady Moss, Appointment Shahana MERCADO [address] [place] [address] [address] [place] [address] [place] [address] [phone] Social History Tobacco Use Types Packs/Day Years Used Date Smoking Tobacco: Never Smokeless Tobacco: Never Alcohol Use Standard Drinks/Week Comments Yes 0 (1 standard drink = 0.6 oz pure alcoho l) rare Sex Assigned at Date Recorded 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 She missed her appointment today and wanted to reschedule at the [place] location.I have scheduled patient as return with [...] be reached at: Home number on file [phone] (home) Best Time: Anytime. Can we leave a detailed message on this number? YES Call taken on 10/19/2017 at 7:27 PM by Bear documented in this encounter Plan of Treatment Not on filedocumented as of this encounter Visit Diagnoses Not on filedocumented in this encounter Care Teams Sleeve Sewer Relationship Specialty Start Date End Date No Ref-Primary, PCP - General 12/25/14 12/28/17 Physician Annette Alvarezne, Nurse Practitioner Clinical Nurse Specialist 10/21/20 MIGRATION AGENT BEEKEEPER FARMER [address] [place] [address] documented as of this encounter
--- OUTSIDE RECORDS SUMMARY | 2022-02-24 11:09 | XMS_ITS | Encounter Summary ---
:1965 Author Organization [place] Address [address] [facility] [place] [address] Care Team Providers Name Role Phone No Ref-Primary, Physician Primary Care Provider [phone] Annette Alvarez APRN STEAM CLEAN MACHINE OPERATOR Unavailable [phone] Reason for Visit Reason Onset Date Comments Results 03/22/2017 lab results and lega l questions Encounter Details Date Type Department Care Team Description 03/22/[address] 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 She will call back to make an appt. Karley Kessler CMA MAL CUTTER HELPER Telephone Encounter - Yina Moss MD - 03/23/2017 10:51 AM THERMAL CUTTER HELPER Can f/u in 2-4 weeks with Annette. MAL CUTTER HELPER Telephone Encounter - Karley Kessler CMA - 03/22/2017 11:38 AM THERMAL CUTTER HELPER DETENTION OFFICER, please advise in LS's absence. Karley Kessler CMA MAL CUTTER HELPER Telephone Encounter - Jasmyn Lee RN - [...] this. I did advise her to contacta catcher helper about this as I do not have a legal background or the answers to her questions regarding a legal commitment. Advised her it is not a simple process, its a legal process and she does have rights as an individual. She will contact a catcher helper regarding her concerns. Jasmyn Lee RN -- [facility] MAL CUTTER HELPER documented in this encounter Plan of Treatment Not on filedocumented as of this encounter Visit Diagnoses Not on filedocumented in this encounter Care Teams E Commerce Specialist Relationship Specialty Start Date End Date No Ref-Primary, PCP - General 12/25/14 12/28/17 Physician Annette Alvarez, Nurse Practitioner Clinical Nurse Specialist 10/21/20 STAGE RIGGER STEAM CLEAN MACHINE OPERATOR [address] [place] [address] documented as of this encounter
--- OUTSIDE RECORDS SUMMARY | 2022-02-24 11:09 | XMS_ITS | Encounter Summary ---
:1965 Author Organization [place] Address [address] [place] [address]. 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
--- OUTSIDE RECORDS SUMMARY | 2022-02-24 11:10 | XMS_ITS | Encounter Summary ---
:1965 Author Organization [place] Address [facility] 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
--- OUTSIDE RECORDS SUMMARY | 2022-02-24 11:10 | XMS_ITS | Encounter Summary ---
:1965 Author Organization [place] Address [address] [place] [address]. [place] [address] Care Team Providers Name Role Phone No Ref-Primary, Physician Primary Care Provider [phone] Reason for Visit Reason Comments Abdominal Pain fell in shower 2 nights ago, not sure if related to her abdominal pain or not. 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 Follow up with BUS VAN DRIVER in 2 days for reevaluation, contact info provided. Discuss repeat ultrasound to monitor cyst size with BUS VAN DRIVER. Return to the ED for worsening symptoms, [...] contain Tylenol?? (acetaminophen), including Vicodin??, Tylenol #3??, Rickreall??, Lortab??, and Percocet??. You should not take [...] She felt better after receiving dilaudid. [place] GREETING CARD MAKER 11 rx for narcotics in past 12 [...] I Past Surgical History: Kidney removed (right) CREMATORIUM OPERATOR surgery Family History: Father: History of AAA Social History: Marital Status: [2] Smoking: No Alcohol: No Accompanied to ED by . 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 Review of Systems Constitutional: Negative for fever [...] sleep apnea. Recommended patient follow up with BUS VAN DRIVER in two days for reevaluation and to [...] break through pain - Follow up with BUS VAN DRIVER in 2 days for reevaluation Discharge Medications: [...] Signature INR 1.60 (H) 0.86 - 1.14 [facility] Specimen Anatomical Collection Method Collection Time Receive d Time (Source) Location / / Volume Laterality 12/25/2014 10:48 12/25/2014 PM CDT 10:58 PM CDT Constance Wolff PA-C LAB - BLOOD ORDERABLES Performing Organization Address City/State/ZIP Code Phon e Number M [facility] [address] [place] [address] [facility] [address] [place] [address], [place] [phone] Lactic acid (12/25/2014 10:48 PM CDT) athologist Signature Lactic Acid 1.3 0.7 - 2.1 [place] mmol/L [facility] Specimen Anatomical Collection Method Collection Time Receive d Time (Source) Location / / Volume Laterality Blood specimen 12/25/2014 10:48 5 (specimen) PM CDT 10:57 PM CDT Constance Wolff PA-C LAB - BLOOD ORDERABLES Performing Organization Address City/State/ZIP Code Phon e Number M [facility] [address] [place] [address] [phone] [facility] [address] [place] [address], [place] [phone] Lipase (12/25/2014 10:48 PM CDT) P athologist Signature Lipase 165 73 - 393 [place] U/L [facility] Specimen Anatomical Collection Method Collection Time Receive d Time (Source) Location / / Volume Laterality Blood specimen 12/25/2014 10:48 5 (specimen) PM CDT 10:58 PM CDT Constance Wolff PA-C LAB - BLOOD ORDERABLES Performing Organization Address City/State/ZIP Code Phon e Number M [facility] [address] [place] [address] [facility] [address] [place] [address], [place] [phone] (ABNORMAL) Comprehensive metabolic panel (12/25/2014 10:48 PM CDT) Analysis Performed At Patho logist Time Signature Sodium 137 133 - 144 [place] mmol/L [facility] Potassium 4.3 3.4 - 5.3 [place] mmol/L [facility] Chloride 104 94 - 109 [place] mmol/L [facility] Carbon Dioxide 29 20 - 32 [place] mmol/L [facility] Anion Gap 4 3 - 14 [place] mmol/L [facility] Glucose 77 70 - 99 [place] mg/dL [facility] Urea Nitrogen 16 7 - 30 [place] mg/dL [facility] Creatinine 1.27 (H) 0.52 - [place] 1.04 mg/dL [facility] GFR Estimate 45 (L) >60 [place] mL/min/1.[address] Comment: Non GFR Calc GFR Estimate If Black 54 (L) >60 mL/min/1.7m2 F [facility] Comment: GFR Calc Calcium 8.2 (L) 8.5 - 10.1 mg/dL [facility] Bilirubin Total 0.2 0.2 - 1.3 mg/dL [facility] Albumin 3.7 3.4 - 5.0 g/dL [facility] Protein Total 7.1 6.8 - 8.8 g/dL [facility] Alkaline Phosphatase 87 40 - 150 U/L [facility] ALT 24 0 - 50 U/L [facility] AST 16 0 - 45 U/L [facility] Specimen Anatomical Collection Method Collection Time Receive d Time (Source) Location / / Volume Laterality Blood specimen 12/25/2014 10:48 5 (specimen) PM CDT 10:58 PM CDT Constance Wolff PA-C LAB - BLOOD ORDERABLES Performing Organization Address City/State/ZIP Code Phon e Number M [facility] [address] [place] [address] [facility] [address] [place] [address], [place] [phone] (ABNORMAL) CBC with platelets + differential (12/25/2014 10:48 PM CDT) [facility] Method Time Signature WBC 10.7 4.0 - [place] 11.0 [facility] 10e9/[facility] RBC Count 3.98 3.8 - 5.2 [place] 10e12/L [facility] Hemoglobin 11.9 11.7 - [place] 15.7 g/dL [facility] Hematocrit 34.5 (L) 35.0 - [place] 47.0 % [facility] MCV 87 78 - 100 [place] fl [facility] MCH 29.9 26.5 - [place] 33.0 pg [facility] MCHC 34.5 31.5 - [place] 36.5 g/dL [facility] RDW 12.3 10.0 - [place] 15.0 % [facility] Platelet Count 290 150 - 450 [place] 10e9/L [facility] Diff Method Automated [facility] % Neutrophils 71.9 % [facility] % Lymphocytes 19.2 % [facility] % Monocytes 5.6 % [facility] % Eosinophils 2.7 % [facility] % Basophils 0.5 % [facility] % Immature 0.1 % [place] Granulocytes [facility] Absolute 7.7 1.6 - 8.3 [place] Neutrophil 10e9/L [facility] Absolute 2.1 0.8 - 5.3 [place] Lymphocytes 10e9/L [facility] Absolute 0.6 0.0 - 1.3 [place] Monocytes 10e9/L [facility] Absolute 0.3 0.0 - 0.7 [place] Eosinophils 10e9/L [facility] Absolute 0.1 0.0 - 0.2 [place] Basophils 10e9/L [facility] Abs Immature 0.0 0 - 0.4 [facility] 10e9/L [facility] Specimen Anatomical Collection Method Collection Time Receive d Time (Source) Location / / Volume Laterality Blood specimen 12/25/2014 10:48 5 (specimen) PM CDT 10:58 PM CDT Constance Wolff PA-C LAB - BLOOD ORDERABLES Performing Organization Address City/State/ZIP Code Phon e Number [facility] [address] [place] [address] [facility] [address] [place] [address], [place] [phone] HCG qualitative urine (12/25/2014 10:05 PM CDT) athologist Signature HCG Qual Urine Negative NEG [facility] Specimen Anatomical Collection Method Collection Time Receive d Time (Source) Location / / Volume Laterality 12/25/2014 10:05 12/25/2014 PM CDT 10:51 PM CDT Brian Neil DO LAB - URINE ORDERABLES Performing Organization Address City/State/ZIP Code Phon e Number [facility] [address] [place], [place] [address] (ABNORMAL) *UA reflex to Microscopic (12/25/2014 10:05 PM CDT) Patholo gist Method Time Signature Color Urine Yellow [facility] Appearance Urine Clear [facility] Glucose Urine 100 (A) NEG mg/dL [facility] Bilirubin Urine Negative NEG [facility] Ketones Urine Negative NEG mg/dL [facility] Specific [place] 1.010 1.003 - [place] Urine 1.035 [facility] Blood Urine Negative NEG [facility] pH Urine 6.0 5.0 - 7.0 [place] pH [facility] Protein Albumin Negative NEG mg/dL [place] Urine [facility] Urobilinogen 0.2 0.2 - 1.0 [place] Urine EU/dL [facility] Nitrite Urine Negative NEG [facility] Leukocyte Negative NEG [place] Esterase Urine [facility] Source Midstream [place] Urine [facility] Specimen Anatomical Collection Method Collection Time Receive d Time (Source) Location / / Volume Laterality 12/25/2014 10:05 12/25/2014 PM CDT 10:13 PM CDT Gem Ribeiro MD LAB - URINE ORDERABLES Performing Organization Address City/State/ZIP Code Phon e Number [facility] [address] [address] documented in [...] pain documented in this encounter Care Teams Manufacturing Chief Engineer Relationship Specialty Start Date End Date No Ref-Primary, Physician PCP - General 12/25/14 12/28/17 documented as of this encounter
--- OUTSIDE RECORDS SUMMARY | 2022-02-24 11:11 | XMS_ITS | Clinical Summary ---
:1965 Author Organization [facility] [place] [address] Care Team Providers Name Role Phone None Unavailable Unavailable Pcp, No Primary Care Provider Unavailable [facility] [place] Unavailable [phone] Allergies Active Allergy Reactions Severity Noted Date Comments Ibuprofen Stomach Upset 11/22/2013 Medications Medication Sig Dispensed Refills Start End Status Date Date aspirin enteric Take 1 tablet by 0 Active coated 81 mg mouth once daily 4 tabletIndications: with a meal. Diabetes mellitus type 1 (HC) citalopram TAKE ONE TABLET 90 tablet 0 Act thai (CELEXA) 40 mg BY MOUTH ONCE 7 tabletIndications: DAILY Depression with anxiety GLUCAGON EMERGENCY INJECT 1 MG 2 Each 2 Active KIT, HUMAN, 1 mg INTRAMUSCULAR ONE 7 kitIndications: TIME IF NEEDED Type 1 diabetes FOR LOW BLOOD mellitus with SUGAR AND UNABLE other specified TO SWALLOW complication (HC) tolterodine TAKE ONE TABLET 180 tablet 0 A ctive (DETROL) 2 mg BY MOUTH TWICE 7 tabletIndications: DAILY Urinary incontinence, unspecified type estradiol Insert 0.5 g into 3 Ac tive (ESTRACE) 0.1 mg/g the vagina. Two 8 vaginal cream days per week levothyroxine Take 200 mcg by 0 Active (SYNTHROID) 200 mouth before mcg tablet breakfast. pregabalin Take 300 mg by 0 Acti ve (LYRICA) 300 mg mouth two times capsule daily. methocarbamoL Take 500 mg by 0 A ctive (ROBAXIN) 500 mg mouth 4 times tablet daily if needed for Muscle Spasm. amoxicillin Take 2,000 mg by 0 A ctive (AMOXIL) 500 mg mouth each time capsule if needed (prior to dentist appointment). oxybutynin XL Take 10 mg by 0 Ac tive (DITROPAN XL) 10 mouth once daily. mg CR tablet phentermine Take 37.5 mg by 0 Ac tive (ADIPEX-P) 37.5 mg mouth once daily. tablet calcium Take 1 Tablet by 0 Act thai carbonate-vitamin mouth once daily D3, 600 mg-400 with a meal. unit, 600 mg-10 mcg (400 unit) tablet lansoprazole Take 30 mg by 0 Act thai (PREVACID) 30 mg mouth two times capsule daily before meals. rizatriptan Place 10 mg on 0 Act thai (MAXALT SOFTWARE INTEGRATION DEVELOPER) 10 mg the tongue 2 disintegrating times daily if tablet needed for Migraine. Give at minimum 2hrs apart. Max Dose: 30mg per 24hrs. topiramate Take 200 mg by 0 Acti ve (TOPAMAX) 100 mg mouth once daily. tablet amitriptyline Take 25-50 mg by 0 Active (ELAVIL) 25 mg mouth at bedtime tablet if needed. furosemide (LASIX) Take 40 mg by 0 Active 40 mg tablet mouth once daily. valACYclovir Take 500 mg by 0 Ac tive (VALTREX) 500 mg mouth 2 times tablet daily if needed. vitamin B complex Take 1 Tablet by 0 Active (B-COMPLEX mouth once daily. VITAMIN) tablet docusate (COLACE) Take 100 mg by 0 Active 100 mg capsule mouth once daily. amLODIPine Take 1 Tablet (10 30 Tablet 0 A ctive (NORVASC) 10 mg mg) by mouth once 2 tabletIndications: daily. HTN (hypertension) HYDROmorphone Take 1 Tablet (2 10 Tablet 0 Active (DILAUDID) 2 mg mg) by mouth 2 tabletIndications: every 6 hours if Intra-abdominal needed for Pain. abscess (HC) insulin aspart, For use with 0 A ctive U-100, (NOVOLOG insulin pump. Use 2 FLEXPEN) 100 up to 125 units unit/mL (3 mL) per day. Basal penIndications: rate 1.15 units Type 1 diabetes per hour. mellitus with Correction factor hypoglycemia and 25. Insulin to without coma (HC) carbohydrate ratio 1: 8.5 insulin aspart, Inject 0 Disc ontinued U-100, (NOVOLOG subcutaneous. For 8 022 (Reorder FLEXPEN) 100 use with insulin (E-cancel not unit/mL (3 mL) pen pump. Use up to sent)) 125 units per day. lisinopriL Take 10 mg by 0 Disco ntinued (PRINIVIL; mouth once daily. 022 ( *IP ZESTRIL) 10 mg Disco ntinued) tablet HYDROcodone-acetam Take 1-2 Tablets 0 01/26 03/29 Discontinued inophen (NORCO) by mouth every 6 022 (*IP 5-325 mg per hours if needed D iscontinued) tablet for Pain. Max acetaminophen dose: 4000 mg in 24 hrs. cefdinir (OMNICEF) Take 1 Capsule 16 Capsule 0 02/12 300 mg (300 mg) by mouth 2 022 capsuleIndications two times daily : Intra-abdominal for 8 days. abscess (HC) metroNIDAZOLE Take 1 Tablet 16 Tablet 0 Ex pired (FLAGYL) 500 mg (500 mg) by mouth 2 022 tabletIndications: two times daily Intra-abdominal for 8 days. abscess (HC) acetaminophen Take 2 Tablets 0 E xpired (TYLENOL EXTRA (1,000 mg) by 2 022 STRGTH) 500 mg mouth three times tabletIndications: daily for 7 days. Intra-abdominal Max acetaminophen abscess (HC) dose: 4000mg in 24 hrs. Active Problems Problem Noted [...] resistant Staphylococcus aureus infection 12/30/2014 Overview: Overview: Justinelena -4 (surveillance swab for [facility], not associated with acute illness) [...] a few week. Met with Naveen, the development educator, ~2 months ago. Hypothyroidism Overview: Formatting of this note is dif ferent from the original. Levothyroxine. TSH (uIU/mL) Date Value 05/04/2016 0.24 (L) Knee osteoarthritis Overview: bilateral, has had injections. Hurts artie ly. Pain 7-8/10. Can't be seen at [facility], owes them money. They suggested 2 total [...] Date Type Specialty Care Team Description 02/09/2022 Orders Only Staff, Other <No scans attac hed> Clinical 02/05/2022 Telephone Dori Davidson, Referral (Liaison Referral) RN 01/25/2022 Anesthesia Event Pam Osorio DO 01/25/2022 Surgery Jonathan Donaldson ENDOSCOPIC RETR JULIEN Payne MD CHOLANGIOPAN CREATOGRAPHY 01/25/2022 [facility] Nikita Gross Intra-abdominal abscess (HC) (Primary Dx ); - Encounter Nathaniel Lima HTN (hype rtension); 02/05/2022 MD Zbigniew Type 1 diabetes mellitus with hypoglycem ia and without coma (HC) Nathaniel Kulkarni MD Wirt, Hedy Ramírez, Elias Licona MD Odenbach, Paul Jeffrey, MD [facility] [place] Hospitalists Of Discharge Summary - Phuc Shipley MD - 02/05/2022 2:00 PM CST Images from the original not e were not included. HOSPITALIST DISCHARGE SUMMAR Y ? ? [facility] Admission Date: 01/25/2022 Discharge Date: 02/05/2022 Discharge Plan: Amaury cedillo was discharged to home and with home health care. Principal Diagnosis Septic shock from ascending cholangitis Hospital Problem List Principal Problem: Septic shock (HC) Active Problems: Diabetes mellitus type 1 (H C) Hypothyroidism GERD (gastroesophageal refl ux disease) Calculus of bile duct with acute cholangitis Acute on chronic kidney ksenia lure (HC) Postoperative intra-abdomin al abscess Ascending cholangitis Hospital Course Ms. Amaury Carbajal is a 56 y.o. female with a history of type 1 DM, s/p nephrectomy, obesity, recent laparascopic cholecystectomy with SARAY drain placement 3 days prior to presenting to [place] ER on 01/24 with abdominal pain an [...] increased to 10 lpm face mask. She nor tim uses a home insulin pu mp for her diabetes however it ran out of insulin, prompting initiation of an IV insulin infusion in the ER. On admission to [facility] on 01/25, she was on 2L [...] another unintentional bolus occurs she should call [facility] or Endocrinology office of Dr. Low to speak with the metal reclamation kettle tender irrigation district manager. Recommendations for Outpatie nt Provider ? ? PCP: No Pcp Recommendations for outpati ent provider Specific recommendations to be addressed at the follow up visit: FOLLOW UP blood pressure an d Creatinine (changed to norvasc from lisinopril). Ensure doing well at home with home care and determine when she could return to work. Ensure follow up with her surgeons in [place]. Discharge Medications Your Home Medicines START taking [...] Take 1 Tablet (10 mg) by mo neh once daily. cefdinir 300 mg capsule For [...] Take 1 Tablet (500 mg) by m out two times daily for 8 days. CHANGE [...] your medicines These medications were sent to [facility] [address] [address] Hours: Open 24 Hours ?? amLODIPine 10 [...] -- POTASSIUM 4.0 4.0 CHLORIDE 108 -- [id number] 24 -- ANIONGAP 8 -- BUN 13 [...] PIPERACILLIN/TAZO <=4 S TOBRAMYCIN <=1 S TRIMETHOPRIM/SULF <=/ S ?? Imaging CT ABDOMEN PELVIS 01/26. [...] and I nstructions AMB CONSULT TO HOME senior living Health Certification/F verona to Face Attestation: I certify that this patient is confined to his/her home and needs intermittent mcc care, physical therapy and/or speech therapy or continues to need occupational therapy. A plan of care has been established and will be reviewed periodically by a physician or allowed practitioner. Services will be furnished while the patient is under the care of a physician or allowed practitioner. The lizz ent had a [id number] encou nter with a physician or an allowed non-physician practitioner and the encounter was related to the primary reason for home health. Date of the Face to Face Enc ounter: 02/05/2022. Based on my findings, review of the medical records, and/or collaboration with the other providers, the following services are medically necessary home health services: Mcc This patient is confined to his/her home because: There is a taxing effort to leave the home due to abdominal abscess and infection. Patient requires the assista nce of another individual in order to leave the home. Provider following for home care services: No Pcp Electronically signed, Phuc Shipley MD [facility] Answering service: Contact on [facility] 02/05/2022 After Hospital Follow Up Ap pointment(s) Follow up with your Endocri nologist at [place] within 2-4 weeks. If transfer of care to Jammie Low MD is desired please call her office. Contact information: Jammie Low MD [address] [place] [address] When to follow up: 2 to 4 [...] Dr. Cabrera baum or Dr. Lagos or Christianne Laresalberta in 2-3 weeks. Tuesday Clinic address: [address] [place] [address] - phone number is [phone] - You can reach infectious dis eases at [phone] NURSING COMMUNICATION [facility] Your first [facility] visit is planned following hospital discharge. ?? An [facility] nurse or therapist will call you to schedule a visit. The call will occur the day before your first visit or by 9am the day of your first visit. ??Please call [phone] a nd ask for [facility] triage if you have further questions about home health. Thank you. Primary Care Provider ayo amezcua up appointment(s) When to follow up: 1 to 5 d ays Rehab Potential: Good Mcc Eval and Tr eat Treatment Options: Full [...] medical emergency. Why were you at the the orthopedic specialty hospital? You were in the hospital fo r abscess in abdomen. You need to follow up with primary MD this next week and your surgeon in [place] in 1-2 weeks. Follow up with Infectious Disease as well. Pending Studies Lab results that may not be resulted at time of discharge: (From admission through now) None Total time spent on discharg e coordination: 55 minutes. Patient was seen and examined today. Phuc Shipley MD Hospitalist, [facility] ? ? [phone] SFER TABLE OPERATOR HELPER 01/22/2022 Lab Requisition Tamar Solorzano MD from [...] Health Mother Relation Name Status Comments Father 2006 Maternal Grandmother Mother Social History Tobacco Use [...] Comments Blood Pressure 144/63 02/05/2022 7:34 AM TRANSFER TABLE OPERATOR HELPER Pulse 50 02/05/2022 7:34 AM TRANSFER TABLE OPERATOR HELPER Temperature 36.6 ??C (97.8 ??F) 02/05/2022 7:34 AM TRANSFER TABLE OPERATOR HELPER Respiratory Rate 18 02/05/2022 7:34 AM TRANSFER TABLE OPERATOR HELPER Oxygen Saturation 96% 02/05/2022 7:34 AM TRANSFER TABLE OPERATOR HELPER Inhaled Oxygen Concentration - - Weight 129 kg (284 lb 6.3 oz) 01/26/2022 6:00 AM CDT Height 180.3 cm (5' 11) 01/25/2022 2:00 AM CDT Body Mass Index 39.66 01/25/2022 2:00 AM CDT Plan of Treatment Upcoming Encounters Date Type Specialty Care Team Description 03/10/2022 Hospital Torey Fernandez Encounter MD [facility] [address] [place] [address] 03/10/2022 Surgery Torey Fernandez ENDOSCOPIC R ETROGRADDayanara Gibbons MD CHOLANGIOPANCREATOGRAPHY [address] [place] [address] Scheduled Procedures Name Priority Associated Diagnoses Date/Time ENDOSCOPIC RETROGRADE Tier 2 bile leak 03/10/2022 8:55 AM CHOLANGIOPANCREATOGRAPHY TRANSFER TABLE OPERATOR HELPER Health Maintenance Due Date Last Done Comments HIV for age 15-65 02/29/1980 Hepatitis C screening for age 1202/28/1983 18-79 [...] Completed 08/24/2005 Medical Devices Implanted Type Area University Relations Recruiter Device Shelf Model / Identifier Expiration Serial / Lot Date Stent Biliary [id number] Advanix Duodenal Bend Plst N/A: 10/29/2023 [id number] / Implanted: Qty: 1 on 01/25/2022 by Nathaniel Donaldson MD at [facility] Common / Bile Duct [id number] Description: Stent Biliary [id number] Adva nix Duodenal Bend Plst Procedures Procedure Name Priority Date/Time Associated Comments Diagnosis SCAN CORRESP-IMAGING 02/09/2022 Results for 12:00 AM TRANSFER TABLE OPERATOR HELPER this procedure are in the results section. GLUCOSE METER Timed 02/05/2022 Results for 12:36 PM TRANSFER TABLE OPERATOR HELPER this procedure are in the results section. GLUCOSE METER Timed 02/05/2022 Results for 7:33 AM TRANSFER TABLE OPERATOR HELPER this procedure are in the results section. GLUCOSE METER Timed 02/05/2022 Results for 2:19 AM TRANSFER TABLE OPERATOR HELPER this procedure are in the results section. GLUCOSE METER Timed 02/04/2022 Results for 9:36 PM TRANSFER TABLE OPERATOR HELPER this procedure are in the results section. GLUCOSE METER Timed 02/04/2022 Results for 5:04 PM TRANSFER TABLE OPERATOR HELPER this procedure are in the results section. GLUCOSE METER Timed 02/04/2022 Results for 1:47 PM TRANSFER TABLE OPERATOR HELPER this procedure are in the results section. GLUCOSE METER Timed 02/04/2022 Results for 1:30 PM TRANSFER TABLE OPERATOR HELPER this procedure are in the results section. GLUCOSE METER Timed 02/04/2022 Results for 1:09 PM TRANSFER TABLE OPERATOR HELPER this procedure are in the results section. POTASSIUM Early AM 02/04/2022 Results for 11:08 AM TRANSFER TABLE OPERATOR HELPER this procedure are in the results section. CREATININE Early AM 02/04/2022 Results for 11:08 AM TRANSFER TABLE OPERATOR HELPER this procedure are in the results section. GLUCOSE METER Timed 02/04/2022 Results for 8:49 AM TRANSFER TABLE OPERATOR HELPER this procedure are in the results section. GLUCOSE METER Timed 02/04/2022 Results for 2:12 AM TRANSFER TABLE OPERATOR HELPER this procedure are in the results section. GLUCOSE METER Timed 02/03/2022 Results for 10:02 PM TRANSFER TABLE OPERATOR HELPER this procedure are in the results section. GLUCOSE METER Timed 02/03/2022 Results for 7:03 PM TRANSFER TABLE OPERATOR HELPER this procedure are in the results section. GLUCOSE METER Timed 02/03/2022 Results for 6:43 PM TRANSFER TABLE OPERATOR HELPER this procedure are in the results section. GLUCOSE METER Timed 02/03/2022 Results for 12:20 PM TRANSFER TABLE OPERATOR HELPER this procedure are in the results section. HEMOGLOBIN Early AM 02/03/2022 Results for 10:35 AM TRANSFER TABLE OPERATOR HELPER this procedure are in the results section. BASIC METABOLIC PANEL Early AM 02/03/2022 Result s for 10:35 AM TRANSFER TABLE OPERATOR HELPER this procedure are in the results section. GLUCOSE METER Timed 02/03/2022 Results for 8:09 AM TRANSFER TABLE OPERATOR HELPER this procedure are in the results section. GLUCOSE METER Timed 02/03/2022 Results for 2:38 AM TRANSFER TABLE OPERATOR HELPER this procedure are in the results section. GLUCOSE METER Timed 02/02/2022 Results for 9:54 PM TRANSFER TABLE OPERATOR HELPER this procedure are in the results section. GLUCOSE METER Timed 02/02/2022 Results for 5:47 PM TRANSFER TABLE OPERATOR HELPER this procedure are in the results section. GLUCOSE METER Timed 02/02/2022 Results for 11:50 AM TRANSFER TABLE OPERATOR HELPER this procedure are in the results section. CBC W PLT NO DIFF Early AM 02/02/2022 Results fo r 8:27 AM TRANSFER TABLE OPERATOR HELPER this procedure are in the results section. HEPATIC FUNCTION PANEL Early AM 02/02/2022 Resul ts for 8:26 AM TRANSFER TABLE OPERATOR HELPER this procedure are in the results section. BASIC METABOLIC PANEL Early AM 02/02/2022 Result s for 8:26 AM TRANSFER TABLE OPERATOR HELPER this procedure are in the results section. GLUCOSE METER Timed 02/02/2022 Results for 7:53 AM TRANSFER TABLE OPERATOR HELPER this procedure are in the results section. GLUCOSE METER Timed 02/02/2022 Results for 2:12 AM TRANSFER TABLE OPERATOR HELPER this procedure are in the results section. GLUCOSE METER Timed 02/01/2022 Results for 9:36 PM TRANSFER TABLE OPERATOR HELPER this procedure are in the results section. GLUCOSE METER Timed 02/01/2022 Results for 5:42 PM TRANSFER TABLE OPERATOR HELPER this procedure are in the results section. GLUCOSE METER Timed 02/01/2022 Results for 5:24 PM TRANSFER TABLE OPERATOR HELPER this procedure are in the results section. POTASSIUM Today 02/01/2022 Results for 4:58 PM TRANSFER TABLE OPERATOR HELPER this procedure are in the results section. GLUCOSE METER Timed 02/01/2022 Results for 4:56 PM TRANSFER TABLE OPERATOR HELPER this procedure are in the results section. XR PERCUTANEOUS TUBE REMOVAL Routine 02/01/2022 Results for 4:34 PM TRANSFER TABLE OPERATOR HELPER this procedure are in the results section. GLUCOSE METER Timed 02/01/2022 Results for 12:12 PM TRANSFER TABLE OPERATOR HELPER this procedure are in the results section. CT ABDOMEN PELVIS WO Routine 02/01/2022 Results for 11:51 AM TRANSFER TABLE OPERATOR HELPER this procedure are in the results section. GLUCOSE METER Timed 02/01/2022 Results for 8:33 AM TRANSFER TABLE OPERATOR HELPER this procedure are in the results section. GLUCOSE METER Timed 02/01/2022 Results for 8:19 AM TRANSFER TABLE OPERATOR HELPER this procedure are in the results section. GLUCOSE METER Timed 02/01/2022 Results for 4:10 AM TRANSFER TABLE OPERATOR HELPER this procedure are in the results section. GLUCOSE METER Timed 02/01/2022 Results for 12:55 AM TRANSFER TABLE OPERATOR HELPER this procedure are in the results section. GLUCOSE METER Timed 01/31/2022 Results for 9:50 PM TRANSFER TABLE OPERATOR HELPER this procedure are in the results section. GLUCOSE METER Timed 01/31/2022 Results for 5:24 PM TRANSFER TABLE OPERATOR HELPER this procedure are in the results section. GLUCOSE METER Timed 01/31/2022 Results for 1:30 PM TRANSFER TABLE OPERATOR HELPER this procedure are in the results section. ECHO COMPLETE W CONTRAST Routine 01/31/2022 Res ults for 1:02 PM TRANSFER TABLE OPERATOR HELPER this procedure are in the results section. HEMOGLOBIN Early AM 01/31/2022 Results for 10:19 AM TRANSFER TABLE OPERATOR HELPER this procedure are in the results section. WHITE BLOOD COUNT Early AM 01/31/2022 Results fo r 10:19 AM TRANSFER TABLE OPERATOR HELPER this procedure are in the results section. BASIC METABOLIC PANEL Early AM 01/31/2022 Result s for 10:19 AM TRANSFER TABLE OPERATOR HELPER this procedure are in the results section. GLUCOSE METER Timed 01/31/2022 Results for 10:03 AM TRANSFER TABLE OPERATOR HELPER this procedure are in the results section. GLUCOSE METER Timed 01/31/2022 Results for 7:45 AM TRANSFER TABLE OPERATOR HELPER this procedure are in the results section. GLUCOSE METER Timed 01/31/2022 Results for 7:29 AM TRANSFER TABLE OPERATOR HELPER this procedure are in the results section. GLUCOSE METER Timed 01/31/2022 Results for 7:22 AM TRANSFER TABLE OPERATOR HELPER this procedure are in the results section. GLUCOSE METER Timed 01/31/2022 Results for 6:51 AM TRANSFER TABLE OPERATOR HELPER this procedure are in the results section. GLUCOSE METER Timed 01/31/2022 Results for 2:13 AM TRANSFER TABLE OPERATOR HELPER this procedure are in the results section. [...] PM CDT from Last 3 Months Results SCAN CORRESP-IMAGING (02/09/2022 12:00 AM TRANSFER TABLE OPERATOR HELPER) Narrative 02/09/2022 12:00 AM TRANSFER TABLE OPERATOR HELPER This result has an attachment that is no t available. Ordered by an unspecified provider. Other Clinical Staff OTHER (ABNORMAL) GLUCOSE METER (02/05/2022 12:36 PM TRANSFER TABLE OPERATOR HELPER)Only the most recent of112 resultswithin the time period is included. P athologist Signature GLUCOSE METER 109 (H) 65 - 100 02/05/2022 [facility] mg/dL 12:41 PM TRANSFER TABLE OPERATOR HELPER [facility] Specimen Anatomical Collection Method Collection Time Receive d Time (Source) Location / / Volume Laterality Blood BLOOD SPECIMEN / 02/05/2022 12:36 022 Unknown PM TRANSFER TABLE OPERATOR HELPER 12:40 PM TRANSFER TABLE OPERATOR HELPER Phuc Shipley MD CHEMISTRY Performing Organization Address City/State/ZIP Code Phon e Number [facility] [address] [place] [address] LABORATORY-[facility] LABORATORY Potassium AM (02/04/2022 11:08 AM TRANSFER TABLE OPERATOR HELPER)Only the most recent of2 resultswithin the time period is included. athologist Signature POTASSIUM 4.0 3.5 - 5.0 02/04/2022 [facility] mmol/L 11:36 AM TRANSFER TABLE OPERATOR HELPER [facility]ATORY[facility] Specimen Anatomical Collection Method / Collection Time Recei olga Time (Source) Location / Volume Laterality Blood BLOOD SPECIMEN / Non-Lab 02/04/2022 11:08 022 Unknown Venipuncture / AM TRANSFER TABLE OPERATOR HELPER 11:18 AM TRANSFER TABLE OPERATOR HELPER Unknown Phuc Shipley MD CHEMISTRY Performing Organization Address [facility] e Number [facility] [address] [place] [id number] LABORATORY-[facility] LABORATORY (ABNORMAL) Creatinine AM (02/04/2022 11:08 AM TRANSFER TABLE OPERATOR HELPER)Only the most recent of2 resultswithin the time period is included. athologist Signature CREATININE 1.47 (H) 0.57 - 02/04/2022 [facility] Dynadmic 1.11 mg/dL 11:41 AM TRANSFER TABLE OPERATOR HELPER LAB[facility]ATORY[facility] eGFR 42 (L) >90 02/04/2022 [facility] mL/min/1.7 11:41 AM TRANSFER TABLE OPERATOR HELPER LABORATORY-CENT 3m2 RAL LABORATORY Comment: As of [...] 02/04/2022 11:08 022 Unknown Venipuncture / AM TRANSFER TABLE OPERATOR HELPER 11:18 AM TRANSFER TABLE OPERATOR HELPER Unknown Phuc Shipley MD CHEMISTRY Performing Organization Address City/[facility] e Number [facility] [address] [place] [id number] LABORATORY[facility] 2000 LABORATORY (ABNORMAL) Hemoglobin AM (02/03/2022 10:35 AM TRANSFER TABLE OPERATOR HELPER)Only the most recent of3 resultswithin the time period is included. P athologist Signature HEMOGLOBIN 9.0 (L) 12.0 - 02/03/2022 [facility] 16.0 g/dL 11:02 AM TRANSFER TABLE OPERATOR HELPER [facility] MCV 95 80 - 100 02/03/2022 [facility] fL 11:02 AM TRANSFER TABLE OPERATOR HELPER LABORATORY-CENT [facility] Specimen Anatomical Collection Method / Collection Time Recei olga Time (Source) Location / Volume Laterality Blood BLOOD SPECIMEN / Venipuncture / 02/03/2022 10:35 02/03 Unknown Unknown AM TRANSFER TABLE OPERATOR HELPER 10:50 AM TRANSFER TABLE OPERATOR HELPER Phuc Shipley MD HEMATOLOGY Performing Organization Address City/State/ZIP Code Phon e Number [facility] [address] [place] [address] LABORATORY-[facility] LABORATORY (ABNORMAL) Basic metabolic panel AM (02/03/2022 10:35 AM TRANSFER TABLE OPERATOR HELPER)Only the most recent of10 resultswithin the time period is included. Patholo gist Method Time Signature SODIUM 140 135 - 145 02/03/2022 [facility] mmol/L 11:21 AM TRANSFER TABLE OPERATOR HELPER [facility] POTASSIUM 4.0 3.5 - 5.0 02/03/2022 [facility] mmol/L 11:21 AM TRANSFER TABLE OPERATOR HELPER [facility] CHLORIDE 108 98 - 110 02/03/2022 [facility] mmol/L 11:21 AM TRANSFER TABLE OPERATOR HELPER [facility] CO2,TOTAL 24 21 - 31 02/03/2022 [facility] mmol/L 11:21 AM TRANSFER TABLE OPERATOR [facility]PER [facility] LABORATORY ANION GAP 8 5 - 18 02/03/2022 [facility] 11:21 AM TRANSFER TABLE OPERATOR [facility] GLUCOSE 92 65 - 100 02/03/2022 [facility] mg/dL 11:21 AM TRANSFER TABLE OPERATOR [facility] CALCIUM 8.4 (L) 8.5 - 10.5 02/03/2022 [facility] mg/dL 11:21 AM TRANSFER TABLE OPERATOR [facility] BUN 13 8 - 25 02/03/2022 [facility] mg/dL 11:21 AM TRANSFER TABLE OPERATOR [facility] CREATININE 1.35 (H) 0.57 - 02/03/2022 [facility] 1.11 mg/dL 11:21 AM TRANSFER TABLE OPERATOR [facility] BUN/CREAT RATIO 10 10 - 20 02/03/2022 [facility] 11:21 AM TRANSFER TABLE OPERATOR [facility] eGFR 46 (L) >90 02/03/2022 [facility] mL/min/1.7 11:21 AM TRANSFER TABLE OPERATOR [facility] 3m2 TRAL LABORATORY Comment: As of [...] / 02/03/2022 10:35 02/03 Unknown Unknown AM TRANSFER TABLE OPERATOR HELPER 10:50 AM TRANSFER TABLE OPERATOR HELPER Phuc Shipley MD CHEMISTRY Performing Organization Address City/State/ZIP Code Phon e Number [facility] [address] [place] [address] LABORATORY-CENTRAL 2000 LABORATORY (ABNORMAL) CBC no diff AM (02/02/2022 8:27 AM TRANSFER TABLE OPERATOR HELPER)Only the most recent of5 resultswithin the time period is included. [facility] gist Method Time Signature WHITE BLOOD 10.1 4.5 - 11.0 02/02/2022 [facility] COUNT thou/cu mm 9:21 AM TRANSFER TABLE OPERATOR [facility] RED BLOOD COUNT 2.93 (L) 4.00 - 02/02/2022 [facility] 5.20 9:21 AM TRANSFER TABLE OPERATOR [facility] mil/cu mm TRAL LABORATORY HEMOGLOBIN 8.7 (L) 12.0 - 02/02/2022 [facility] 16.0 g/dL 9:21 AM TRANSFER TABLE OPERATOR [facility] HEMATOCRIT 27.9 (L) 33.0 - 02/02/2022 [facility] 51.0 % 9:21 AM TRANSFER TABLE OPERATOR [facility] MCV 95 80 - 100 02/02/2022 [facility] fL 9:21 AM TRANSFER TABLE OPERATOR [facility] MCH 29.7 26.0 - 02/02/2022 [facility] 34.0 pg 9:21 AM TRANSFER TABLE OPERATOR [facility] MCHC 31.2 (L) 32.0 - 02/02/2022 [facility] 36.0 g/dL 9:21 AM TRANSFER TABLE OPERATOR [facility] RDW 14.0 11.5 - 02/02/2022 [facility] 15.5 % 9:21 AM TRANSFER TABLE OPERATOR [facility] PLATELET COUNT 497 (H) 140 - 440 02/02/2022 [facility] thou/cu mm 9:21 AM TRANSFER TABLE OPERATOR [facility] MPV 10.0 6.5 - 11.0 02/02/2022 [facility] fL 9:21 AM TRANSFER TABLE OPERATOR [facility] NRBC 0.0 % 02/02/2022 [facility] 9:21 AM TRANSFER TABLE OPERATOR [facility] ABS NRBC 0.0 thou /cu 02/02/2022 [facility] mm 9:21 AM TRANSFER TABLE OPERATOR [facility] Specimen Anatomical Collection Method Collection Time Receive d Time (Source) Location / / Volume Laterality Blood BLOOD SPECIMEN / Butterfly / 02/02/2022 8:27 AM 02/02 9:01 Unknown Unknown TRANSFER TABLE OPERATOR HELPER AM TRANSFER TABLE OPERATOR HELPER Phuc Shipley MD HEMATOLOGY Performing Organization Address City/State/ZIP Code Phon e Number [facility] [address] [place] [address] LABORATORY-CENTRAL 2000 LABORATORY (ABNORMAL) Hepatic function panel AM (02/02/2022 8:26 AM TRANSFER TABLE OPERATOR HELPER)Only the most recent of6 resultswithin the time period is included. [facility] gist Method Time Signature ALBUMIN 2.6 (L) 3.5 - 5.2 02/02/2022 [facility] g/dL 9:52 AM TRANSFER TABLE OPERATOR [facility] PROTEIN,TOTAL 5.3 (L) 6.0 - 8.0 02/02/2022 [facility] g/dL 9:52 AM TRANSFER TABLE OPERATOR [facility] GLOBULIN 2.7 2.0 - 3.7 02/02/2022 [facility] g/dL 9:52 AM TRANSFER TABLE OPERATOR [facility] A/G RATIO 1.0 1.0 - 2.0 02/02/2022 [facility] 9:52 AM TRANSFER TABLE OPERATOR [facility] BILIRUBIN,TOTAL 0.4 0.2 - 1.2 02/02/2022 [facility] mg/dL 9:52 AM TRANSFER TABLE OPERATOR [facility] BILIRUBIN,DIRECT 0.3 0.1 - 0.5 02/02/2022 [facility] mg/dL 9:52 AM TRANSFER TABLE OPERATOR [facility] BILIRUBIN,INDIRE 0.1 (L) 0.2 - 0.8 02/02/[address] [facility] [address] mg/dL 9:52 AM TRANSFER TABLE OPERATOR [facility] ALK PHOSPHATASE 95 50 - 136 02/02/2022 [facility] IU/L 9:52 AM TRANSFER TABLE OPERATOR [facility] ALT (SGPT) 24 8 - 45 02/02/2022 [facility] IU/L 9:52 AM TRANSFER TABLE OPERATOR [facility] AST (SGOT) 13 2 - 40 02/02/2022 [facility] IU/L 9:52 AM TRANSFER TABLE OPERATOR [facility] Specimen Anatomical Collection Method Collection Time Receive d Time (Source) Location / / Volume Laterality Blood BLOOD SPECIMEN / Butterfly / 02/02/2022 8:26 AM 02/02 9:01 Unknown Unknown TRANSFER TABLE OPERATOR HELPER AM TRANSFER TABLE OPERATOR HELPER Phuc Shipley MD CHEMISTRY Performing Organization Address City/State/ZIP Code Phon e Number [facility] [address] [place] [address] LABORATORY-CENTRAL 2000 LABORATORY XR PERCUTANEOUS TUBE REMOVAL (02/01/2022 4:34 PM TRANSFER TABLE OPERATOR HELPER) Anatomical Region Laterality Modality Abdomen Digital Radiography Specimen (Source) Anatomical Collection Method Collection Time Re ceived Time Location / / Volume Laterality 02/01/2022 4:37 PM TRANSFER TABLE OPERATOR HELPER Impressions 02/01/2022 4:37 PM TRANSFER TABLE OPERATOR HELPER Successful removal right upper quadrant percutaneous drain. Dictated by Shayan Duffy MD @ Jan ??7 2021 ??4:37PM (Electronically Signed) ?? Narrative 02/01/2022 4:37 PM TRANSFER TABLE OPERATOR HELPER For Patients: ??As a result of the [...] please contact yo health care provider. HISTORY: Percutaneous drain removal. [...] CT ABDOMEN PELVIS WO (02/01/2022 11:51 AM TRANSFER TABLE OPERATOR HELPER)Only the most recent of2 results within the time period is included. Anatomical Region Laterality Modality Abdomen, Pelvis, AORTA, LIVER, SPLEEN Co mputed Tomography Specimen (Source) Anatomical Collection Method Collection Time Re ceived Time Location / / Volume Laterality 02/01/2022 3:05 PM TRANSFER TABLE OPERATOR HELPER Impressions 02/01/2022 3:05 PM TRANSFER TABLE OPERATOR HELPER 1. Status post cholecystectomy. 2. Increased free air in the gallbladder fossa and tracking along catheter could be due to leak. 3. Moderate bilateral pleural effusions and bibasilar atelectasis/consolidation, increased. 4. Interval placement of percutaneous dr vicente anterior to the liver with resolution of associated fluid collection. Please note that [facility] use dose modulation, iterative reconstruction, and/or weight-based dosing when appropriate to reduce radiation dose to as low as reasonably achievable. Dictated by Nikita Ortega MD @ 2 3:05:35 PM (Electronically Signed) Narrative 02/01/2022 3:05 PM TRANSFER TABLE OPERATOR HELPER For Patients: ??As a result of the Cures Act, medical imaging exams and procedure report s are released immediately into your [facility] medical record. ??You may view this report [...] provider. If you have questions, please contact [facility] care provider. INDICATION: Acute abdominal pain. COMPARISON: [...] note that all CT scans at [facility] use dose modulation, iterative reconstruction, and/or weight-based dosing when appropriate to reduce radiation dose to as low as reasonably achievable. Dictated by Nikita Ortega MD @ 2 3:05:35 PM (Electronically Signed) Mickey Curiel MD CT ECHO COMPLETE W CONTRAST (01/31/2022 1:02 PM TRANSFER TABLE OPERATOR HELPER) P athologist Signature AORTIC VALVE 11 mmHg MEAN PG EJECTION 77 % FRACTION PEAK TR 3.8 m/s VELOCITY LVEDD 4.4 cm EJECTION > 75% FRACTION Anatomical Region Laterality Modality HEART Ultrasound Specimen (Source) Anatomical Collection Method Collection Time Re ceived Time Location / / Volume Laterality 01/31/2022 12:09 PM TRANSFER TABLE OPERATOR HELPER Narrative 01/31/2022 2:56 PM TRANSFER TABLE OPERATOR HELPER ECHOCARDIOGRAM AMAURY CARBAJAL ? Accessi on#: ?? [id number] : ?1965 56 years Study Date: ?? 01/31/2022 12:09:30 PM Gender: F ?BP: ? 183/74 mmHg Height: 180.00 cm ?BSA: ?2.45 m? ?? Weight: 129.00 kg ?Tech: ? EF ? Referring MD: ELIAS WARREN Site: ? [facility] Reading Location: ANW IP Procedure: 2D w/ [...] . This study was interpreted by an [facility] redited facility. ??Final ?? Procedure Note Dickson Evans MD - 01/31/2022Formatt ing of this note might be different from the original. ECHOCARDIOGRAM AMAURY CARBAJAL : 1965 56 years Study Date: 01/31 12:09:30 PM Gender: F BP: 183/74 mmHg Height: 180.00 cm BSA: 2.45 m? ?? Weight: 129.00 kg Tech: EF Referring MD: ELIAS WARREN Site: [facility] Reading Location: ANW IP Procedure: 2D w/ [...] . This study was interpreted by an [facility] redited facility. Final Elias Warren MD ECHO ORD (ABNORMAL) WBC AM (01/31/2022 10:19 AM TRANSFER TABLE OPERATOR HELPER)Only the most recent of2 results within the time period is included. Analysis Performed At Patho logist Time Signature WHITE BLOOD 14.7 (H) 4.5 - 11.0 01/31/2022 [facility] COUNT thou/cu mm 10:37 AM TRANSFER TABLE OPERATOR HELPER LAB[facility]ATORY[facility] TRAL LABORATORY NRBC 0.0 % 01/31/2022 [facility] 10:37 AM TRANSFER TABLE OPERATOR HELPER [facility] TRAL LABORATORY ABS NRBC 0.0 thou /cu 01/31/2022 [facility] mm 10:37 AM TRANSFER TABLE OPERATOR HELPER [facility]AL LABORATORY Specimen Anatomical Collection Method / Collection Time Recei olga Time (Source) Location / Volume Laterality Blood BLOOD SPECIMEN / Venipuncture / 01/31/2022 10:19 01/31 Unknown Unknown AM TRANSFER TABLE OPERATOR HELPER 10:31 AM TRANSFER TABLE OPERATOR HELPER Elias Warren MD HEMATOLOGY Performing Organization Address City/State/ZIP Code Phon e Number [facility] [address] [place] [address] LABORATORY-CENTRAL 1999 LABORATORY XR CHEST 1 VIEW PORTABLE (01/30/2022 [...] Dictated by Brian Diaz MD @ Jan ??08 14 21 ??2:07PM (Electronically Signed) ?? Narrative 01/30/2022 2:07 PM CDT For Patients: ??As a result of the Cures Act, medical imaging exams and procedure report s are released immediately into your [facility] medical record. ??You may view this report [...] provider. If you have questions, please contact [facility] health care provider. HISTORY: Shortness of breath. [...] of3 resultswithin the time period is included. Patholo gist Method Time Signature PH, VENOUS 7.45 (H) 7.32 - 7.43 01/30/2022 [facility] 1:30 PM CDT LABORATORY-[facility] PCO2, VENOUS 32 (L) 41 - 51 01/30/2022 [facility] mmHg 1:30 PM CDT LABORATORY-[facility] LAB[facility] PO2, VENOUS 39 35 - 40 01/30/2022 [facility] mmHg 1:30 PM CDT LABORATORY[facility] LAB[facility] HCO3,VENOUS 22 22 - 29 01/30/2022 [facility] mmol/L 1:30 PM CDT LABORATORY-[facility] TR[facility] LABORATORY BASE EXCESS, -1.0 -2.0 - 3.0 01/30/2022 [facility] VENOUS, POCT 1:30 PM CDT LABORATORY[facility] O2 SATURATION, 77 (H) 70 - 75 % 01/30/2022 [facility] VENOUS 1:30 PM CDT LABORATORY-[facility] LABORATORY PATIENT 37.0 Degrees C 01/30/2022 [facility] TEMPERATURE 1:30 PM CDT LABORATORY[facility] TR[facility] LAB[facility]ORY Specimen Anatomical Collection Method / Collection Time Recei olga Time (Source) Location / Volume Laterality Blood VENOUS BLOOD Venipuncture / 01/30/2022 1:16 01/30/2022 1:23 SPECIMEN / Unknown Unknown PM CDT PM CDT Mickey Curiel MD CHEMISTRY Performing Organization Address City/State/ZIP Code Phon e Number [facility] [address] [place] [address] LABORATORY-CENTRAL 2000 LABORATORY (ABNORMAL) BILIRUBIN,TOTAL/DIRECT (01/30/2022 1:14 PM CDT) P athologist Signature BILIRUBIN,TOTA 0.8 0.2 - 1.2 01/30/2022 [facility] L mg/dL 1:52 PM CDT LABORATORY-[facility] TRAL LABORATORY BILIRUBIN,DIRE 0.6 (H) 0.1 - 0.5 01/30/[address] [facility] CT mg/dL 1:52 PM CDT LABORATORY-[facility] TRAL LABORATORY BILIRUBIN,EBONI 0.2 0.2 - 0.8 01/30/2022 [facility] RECT mg/dL 1:52 PM CDT LABORATORY-[facility] TRAL LABORATORY Specimen Anatomical Collection Method / Collection Time Recei olga Time (Source) Location / Volume Laterality Blood BLOOD SPECIMEN / Venipuncture / 01/30/2022 1:14 2021 1:23 Unknown Unknown PM CDT PM CDT Mickey Curiel MD CHEMISTRY Performing Organization Address [facility] e Number [facility] [address] [place] [address] LABORATORY-CENTRAL 2000 LABORATORY AMMONIA (01/30/2022 1:14 PM CDT)Only the most recent of2 resultswithin the time period is included. athologist Signature AMMONIA 26 11 - 35 01/30/2022 [facility] umol/L 2:23 PM CDT LABORATORY-CENTR AL LABORATORY [...] Mickey Curiel MD CHEMISTRY Performing Organization Address [facility] e Number [facility] [address] [place] [address] LABORATORY-CENTRAL 2000 LABORATORY (ABNORMAL) ALT AM (01/30/2022 4:01 AM CDT) athologist Signature ALT (SGPT) 52 (H) 8 - 45 IU/L 01/30/2022 [facility] 5:33 AM CDT LABORATORY-[facility] LABORATORY Specimen Anatomical Collection Method Collection Time Receive d Time (Source) Location / / Volume Laterality Blood BLOOD SPECIMEN / Butterfly / 01/30/2022 4:01 AM 01/30 4:33 Unknown Unknown CDT AM CDT Elias Warren MD CHEMISTRY Performing Organization Address City/State/ZIP Code Phon e Number [facility] [address] [place] [address] LABORATORY-CENTRAL 1999 LABORATORY (ABNORMAL) AST AM (01/30/2022 4:01 AM CDT) P athologist Signature AST (SGOT) 52 (H) 2 - 40 IU/L 01/30/2022 [facility] 5:33 AM CDT LABORATORY-CENT RAL LABORATORY Specimen Anatomical Collection Method Collection Time Receive d Time (Source) Location / / Volume Laterality Blood BLOOD SPECIMEN / Butterfly / 01/30/2022 4:01 AM 01/30 4:33 Unknown Unknown CDT AM CDT Elias Warren MD CHEMISTRY Performing Organization Address City/State/ZIP Code Phon e Number [facility] [address] [place] [address] [place] [address] LABORATORY-CENTRAL 2000 LABORATORY SCAN-CARDIAC STRIP (01/28/2022 5:30 PM CDT) Narrative This result has an attachment that is no t available. Scanner OTHER (ABNORMAL) BODY FLUID CULTURE,STAIN (AEROBIC) (01/28/2022 4:16 PM CDT) [facility] Signature CULTURE RESULT (A) 02/03/2022 [facility] 9:24 AM TRANSFER TABLE OPERATOR HELPER LABORATORY-[facility] TRAL LABORATORY CULTURE 2+ Klebsiella 02/03/2022 [facility] oxytoca 9:24 AM TRANSFER TABLE OPERATOR HELPER LABORATORY-[facility] TRAL LABORATORY GRAM STAIN 2+ RBCs (A) 02/03/2022 [facility] 9:24 AM TRANSFER TABLE OPERATOR HELPER LABORATORY-[facility] TRAL LABORATORY GRAM STAIN 3+ PMNs (A) 02/03/2022 [facility] 9:24 AM TRANSFER TABLE OPERATOR HELPER LABORATORY-[facility] TRAL LABORATORY GRAM STAIN No Epithelial 02/03/2022 [facility] cells (A) 9:24 AM TRANSFER TABLE OPERATOR HELPER LABORATORY-[facility] TRAL LABORATORY GRAM STAIN 2+ Gram 02/03/2022 [facility] Negative 9:24 AM TRANSFER TABLE OPERATOR HELPER LABORATORY-[facility] Bacilli (A) TRAL LABORATORY Specimen Anatomical [...] Elias Warren MD MICROBIOLOGY Performing Organization Address City/[facility] Phon e Number [facility] [address] [place], [place] [address] [address] LABORATORY-CENTRAL 1999 LABORATORY (ABNORMAL) ANAEROBIC CULTURE (01/28/2022 4:16 PM CDT) Analysis Performed At [facility] Time Signature CULTURE RESULT (A) 02/03/2022 [facility] 8:12 AM TRANSFER TABLE OPERATOR HELPER LABORATORY-[facility] TRAL LABORATORY CULTURE 1+ Gram 02/03/2022 [facility] negative 8:12 AM TRANSFER TABLE OPERATOR HELPER LABORATORY-[facility] bacilli TRAL LABORATORY Comment: Non-viable for identification Specimen Anatomical Collection Method Collection Time Receive d Time (Source) Location / / Volume Laterality Other SPECIMEN FROM Non-Blood / 01/28/2022 4:16 PM 01/29/20 22 4:16 ABSCESS / Unknown Unknown CDT PM CDT Elias Warren MD MICROBIOLOGY Performing Organization Address City/[facility] Phon e Number [facility] [address] [place] [address] LABORATORY-CENTRAL [address] DRAIN PERITONEAL RETROPERITONEAL INC GUIDE (01/28/2022 3:32 PM CDT) Anatomical Region Laterality Modality Abdomen Computed Tomography, Other Specimen (Source) Anatomical Collection Method Collection Time Re ceived Time Location / / Volume Laterality 01/28/2022 3:57 PM CDT Impressions 01/28/2022 3:57 PM CDT 1. Status post CT-guided placement of 14-Faroese pigtail catheter into 9 x 4 cm right upper quadrant fluid collection. 50 cc of cloudy fluid obtained and sent to the lab. 2. No immediate complications. 3. Moderate sedation planned and used. Please note that all CT scans at [facility] use dose modulation, iterative reconstruction, and/or weight-based dosing when appropriate to reduce radiation dose to as low as reasonably achievable. Dictated by Curtis Black MD @ 01/28/2022 3:57:30 PM (Electronically Signed) Narrative 01/28/2022 3:57 PM CDT For Patients: ??As a result of the Century Cures Act, medical imaging exams and procedure report s are released immediately into your [facility] medical record. ??You may view this report [...] monitored by a trained, dedicated nurse. The [facility] ician who performed the procedure provided 34 minutes of intra-service time with the patient. The patient was placed in supine positio n and localizing images were obtained. Anterior approach was chosen. The site was marked, and then prepped and draped in sterile fashion. Glade protocol was followed. TIME-OU T conducted just [...] 14-Frenc h dilators. Over the wire, a 14-Faroese pigtail catheter was placed with position verified [...] provider. If you have questions, please contact [facility] care provider. INDICATION: 6 x 4 cm [...] then prepped and draped in sterile fashion. Glade protocol was followed. TIME-OU T conducted just [...] The tract was dilated with 10 and 14-Faroese dilators. Over the wire, a 14-Faroese pigtail catheter was placed with position verified by CT. The catheter was locked and fixed in position. The catheter was attached to a Norbert-Close drainage bag after 50 cc of cloudy fluid was obta ined and sent to the lab. No immediate complications. EBL less than 10 cc. IMPRESSION: 1. Status post CT-guided placement of 14 -Faroese pigtail catheter into 9 x 4 cm right upper quadrant fluid collection. 50 cc of cloudy fluid obtained and sent to the lab. 2. No immediate complications. 3. Moderate sedation planned and used. Please note that all CT scans at this [facility] use dose modulation, iterative reconstruction, and/or weight-based [...] the time period is included. athologist Signature MAGNESIUM 1.7 1.6 - 2.6 01/28/2022 [facility] mg/dL 9:55 AM CDT LABORATORY-CENTR AL LABORATORY Specimen Anatomical Collection Method / Collection Time Recei olga Time (Source) Location / Volume Laterality Blood BLOOD SPECIMEN / Venipuncture / 01/28/2022 9:03 2021 9:16 Unknown Unknown AM CDT AM CDT Elias Warren MD CHEMISTRY Performing Organization Address City/State/ZIP Code Phon e Number [facility] [address] [place] [address] LABORATORY-CENTRAL 1999 LABORATORY SCAN-CARDIAC STRIP (01/27/2022 3:00 PM CDT) Narrative This result has an attachment that is no t available. Scanner OTHER (ABNORMAL) CK TOTAL (01/27/2022 8:46 AM CDT)Only the most recent of4 results within the time period is included. P athologist Signature CK,TOTAL 1,405 (H) 29 - 168 01/27/2022 [facility] IU/L 9:48 AM CDT LABORATORY-[facility] LABORATORY Specimen Anatomical Collection Method Collection Time Receive d Time (Source) Location / / Volume Laterality Blood BLOOD SPECIMEN / Butterfly / 01/27/2022 8:46 AM 01/27 9:06 Unknown Unknown CDT AM CDT Angela Walker CEO & FOUNDER CHEMISTRY Performing Organization Address City/State/ZIP Code Phon e Number [facility] [address] [place] [address] LABORATORY-CENTRAL 2000 LABORATORY SCAN-CARDIAC STRIP (01/27/2022 8:08 AM CDT) Narrative This result has an attachment that is no t available. Scanner OTHER (ABNORMAL) COMPREHENSIVE URINE DRUG SCREEN (01/27/2022 2:08 AM CDT) Patholo gist Method Time Signature ACETAMINOPHEN POS (A) <=10 01/27/2022 [place]INE mcg/mL 2:57 PM [facility] AMPHETAMINE URINE NEG <=500 01/27/2022 [place] ng/mL 2:57 PM [facility] BARBITURATE URINE NEG <=200 01/27/2022 [place] ng/mL 2:57 PM [facility] BENZODIAZEPINE NEG <=100 01/27/2022 [place] [facility] ng/mL 2:57 PM [facility] BUPRENORPHRINE NEG <=5 ng/mL 01/27/2022 [place] URINE 2:57 PM [facility] COCAINE METAB NEG <=300 01/27/2022 [place] [facility] ng/mL 2:57 PM [facility] ETHANOL URINE NEG <=10 01/27/2022 [place] mg/dL 2:57 PM [facility] FENTANYL URINE NEG <=4 ng/mL 01/27/2022 [place] 2:57 PM [facility] METHADONE URINE NEG <=300 01/27/2022 [place] ng/mL 2:57 PM [facility] OPIATES URINE NEG <=300 01/27/2022 [place] ng/mL 2:57 PM [facility] OXYCODONE URINE POS (A) <=100 01/27/2022 [place] ng/mL 2:57 PM [facility] PCP URINE NEG <=25 01/27/2022 [place] ng/mL 2:57 PM [facility] SALICYLATE URINE NEG <=10 01/27/2022 [place] mg/dL 2:57 PM [facility] THC 50 URINE NEG <=50 01/27/2022 [place] ng/mL 2:57 PM [facility] MASS SPECTROMETRY See Below 01/27/2022 [place] URINE 2:57 PM [facility] Comment: Acetaminophen, Citalopram, Ephe drine/Pseudoephedrine, Lidocaine, Lidocaine metabolite, Topiramate, and Topiramate m etabolite present. Specimen Anatomical Collection Method Collection Time Receive d Time (Source) Location / / Volume Laterality Urine URINE SPECIMEN / Non-Blood / 01/27/2022 2:08 AM 01/27 2:16 Unknown Unknown CDT AM CDT [facility] - 022 2:57 PM CDT Release to patient->Immediate Angela Walker CEO & FOUNDER URINE Performing Organization Address City/State/ZIP Code Phon e Number [address] MAIL CODE 812 (ABNORMAL) PROCALCITONIN (01/26/2022 4:52 PM CDT)Only the most recent of2 resultswithin the time period is included. [facility] Method Time Signature PROCALCITONIN 27.53 (H) <0.50 01/26/2022 [facility] ng/ml 6:21 PM CDT LABORATORY-[facility] TRAL LABORATORY Specimen Anatomical Collection Method Collection Time Receive d Time (Source) Location / / Volume Laterality Blood BLOOD SPECIMEN / Butterfly / 01/26/2022 4:52 PM 01/26 4:59 Unknown Unknown CDT PM CDT Narrative [facility] LABORATORY-CENTRAL LABORAT ORY - 01/26/2022 6:21 PM [...] concentrations <2.0 ng/mL are obtained. Angela Walker CEO & FOUNDER SEND OUTS Performing Organization Address City/State/ZIP Code Phon e Number [facility] [address] [place] [address] LABORATORY-CENTRAL 2000 LABORATORY (ABNORMAL) TSH FOR ADD ON (01/26/2022 4:52 PM CDT) P athologist Signature TSH 0.18 (L) 0.35 - 4.94 01/26/2022 [facility] uIU/mL 6:09 PM CDT LABORATORY-CENT [facility] LABORATORY Specimen Anatomical Collection Method Collection Time Receive d Time (Source) Location / / Volume Laterality Blood BLOOD SPECIMEN / Butterfly / 01/26/2022 4:52 PM 01/26 4:59 Unknown Unknown CDT PM CDT Narrative [facility] LABORATORY-CENTRAL LABORAT ORY - 01/26/2022 6:09 PM CDT In Adults, TSH values between 5.00 and 10.00 uIU/ml do not necessarily indicate the presence of Hyp othyroidism. Correlation with clinical findings such as presence of goiter and/or Thyroperoxidase (TPO) Antibody ma y be helpful. For more information please refer to COBY 20 ; 291: 228-238. Marilou Shereen ANDRADE CHEMISTRY Performing Organization Address [facility]/ZIP Code Phon e Number [facility] [address] [place] [phone] LABORATORY-CENTRAL 2000 LABORATORY T4,FREE (01/26/2022 4:52 PM CDT) athologist Signature T4,FREE 0.86 0.70 - 1.80 01/26/2022 [facility] ng/dL 6:09 PM CDT LABORATORY-CENTR AL LABORATORY Specimen Anatomical Collection Method Collection Time Receive d Time (Source) Location / / Volume Laterality Blood BLOOD SPECIMEN / Butterfly / 01/26/2022 4:52 PM 01/26 4:59 Unknown Unknown CDT PM CDT Marilou Shereen ANDRADE CHEMISTRY Performing Organization Address [facility] Phon e Number [facility] [address] [place] [address] LABORATORY-CENTRAL 1999 LABORATORY CALCIUM IONIZED HOSPITAL DRAW ONLY (01/26/2022 4:52 PM CDT)Only the most recent of3 resultswithin the time period is included. athologist [facility] CALCIUM,IONIZE 1.22 1.15 - 01/26/2022 [facility] D 1.27 5:04 PM CDT LABORATORY-CENT mmol/L RAL LABORATORY Specimen Anatomical Collection Method Collection Time Receive d Time (Source) Location / / Volume Laterality Blood BLOOD SPECIMEN / Butterfly / 01/26/2022 4:52 PM 01/26 4:59 Unknown Unknown CDT PM CDT Hedy Milligan DO CHEMISTRY Performing Organization Address [facility] Phon e Number [facility] [address] [place] [phone] LABORATORY-CENTRAL [address] HEAD BRAIN WO (01/26/2022 10:30 [...] note that [facility] use dose modulation, iterative reconstruction, and/or weight-based dosing when appropriate to reduce radiation dose to as low as reasonably achievable. Dictated by Ramila Patten MD @ 01/26/2022 1 1:00:42 AM (Electronically Signed) Narrative 01/26/2022 11:00 AM CDT For Patients: ??As a result of the Cures Act, medical imaging exams and procedure report s are released immediately into your [facility] medical record. ??You may view this report [...] and intra-ocular lens implants. Procedure Note Ramila Patten, - 01/26/2022Forma tting of this note might [...] note that [facility] CT [facility] use dose modulation, iterative reconstruction, and/or weight-based dosing when appropriate to reduce radiation dose to as low as reasonably achievable. Dictated by Ramila Patten MD @ 01/26/2022 1 1:00:42 AM (Electronically Signed) Angela Walker CEO [employer] F[employer]ER CT SCAN-CARDIAC STRIP (01/26/2022 7:21 AM CDT) [...] 4:23 Unknown Unknown CDT AM CDT Narrative [facility] LABORATORY - 01/27/2022 2:05 PM CDT ? (<5.7%) ?Normal ? (5.7% to 6.4%) ? Indicates pr ediabetes ? (>=6.5%) ? Confirms diabetes Falsely low levels may be seen with: Recent Transfusion, Recent Significant B lood Loss, Hemolytic Diseases, or Falsely elevated levels may be seen with : Untreated Anemias, Splenectomy Naveen Marcial MD CHEMISTRY Performing Organization Address City/State/ZIP Code Phon e Number [facility] LABORATORY SENDOUT INTERNAL ZIP [place], [place] [phone] [facility] ,SERUM (01/26/2022 4:17 AM CDT) Analysis Performed At Patho logist Time Signature ,SERU Negative Negative 01/26/2022 [facility] M 10:47 AM CDT LABORATORY-ALL[facility] TRAL LABORATORY Specimen Anatomical Collection Method Collection Time Receive d Time (Source) Location / / Volume Laterality Blood BLOOD SPECIMEN / Butterfly / 01/26/2022 4:17 AM 01/26 4:23 Unknown Unknown CDT AM CDT Quita MIRAMONTES CHEMISTRY Performing Organization Address City/State/ZIP Code Phon e Number [facility] [address] [place] [address] [place] [address] LABORATORY-CENTRAL 2000 LABORATORY (ABNORMAL) LIPASE (01/26/2022 4:17 AM CDT)Only the most recent of2 resultswithin the time period is included. P athologist Signature LIPASE <5.0 (L) 8.0 - 78.0 01/26/2022 [facility] IU/L 10:36 AM CDT LABORATORY-CENT RAL LABORATORY Specimen Anatomical Collection Method Collection Time Receive d Time (Source) Location / / Volume Laterality Blood BLOOD SPECIMEN / Butterfly / 01/26/2022 4:17 AM 01/26 4:23 Unknown Unknown CDT AM CDT Quita MIRAMONTES CHEMISTRY Performing Organization Address City/State/ZIP Code Phon e Number [facility] [address] [facility] [address] LABORATORY-CENTRAL 2000 LABORATORY (ABNORMAL) C-REACTIVE PROTEIN (01/25/2022 9:40 PM CDT) Patholo gist Method Time Signature C-REACTIVE 42.31 (H) <0.50 01/25/2022 [facility] PROTEIN mg/dL 11:23 PM CDT LABORATORY-ALL[facility] TRAL LABORATORY Specimen Anatomical Collection Method / Collection Time Recei olga Time (Source) Location / Volume Laterality Blood BLOOD SPECIMEN / Venipuncture / 01/25/2022 9:40 2021 9:53 Unknown Unknown PM CDT PM CDT [facility] CHEMISTRY Performing Organization Address City/State/ZIP Code Phon e Number [facility] [address] [place] [address] LABORATORY-CENTRAL 1999 LABORATORY (ABNORMAL) Arterial Blood Gas (01/25/2022 8:13 PM CDT)Only the most recent of2 resultswithin the time period is included. Analysis Performed At Patho logist Time Signature PH, ARTERIAL 7.34 (L) 7.35 - 01/25/2022 [facility] 7.45 8:28 PM CDT LABORATORY-[facility] TRAL LABORATORY PCO2, ARTERIAL 39 32 - 45 01/25/2022 [facility] mmHg 8:28 PM CDT LABORATORY-ALL[facility] TRAL LABORATORY PO2, ARTERIAL 393 (H) 83 - 108 01/25/2022 [facility] mmHg 8:28 PM CDT LABORATORY-ALL[facility] TRAL LABORATORY HCO3, ARTERIAL 21 21 - 28 01/25/2022 [facility] mmol/L 8:28 PM CDT LABORATORY-[facility] TRAL LABORATORY BASE EXCESS, -4.0 (L) -2.0 - 3.0 01/25/2022 [facility] ARTERIAL 8:28 PM CDT LABORATORY-ALLEN TRAL LABORATORY O2 SATURATION, 100 (H) 94 - 98 % 01/25/2022 [facility] ARTERIAL 8:28 PM CDT LABORATORY-[facility] TRAL LABORATORY INSPIRED O2 100 01/25/2022 [facility] 8:28 PM CDT LABORATORY-ALL[facility] TRAL LABORATORY Comment: Unit of Measure: Liters (L) if <=20; Percent (%) if >20 PATIENT TEMPERATURE 38.2 Degrees C 01/25/2022 8:28 PM A [facility] CDT LABORATORY-CENTRAL LABORATORY Specimen Anatomical Collection Method / Collection Time Recei olga Time (Source) Location / Volume Laterality Blood ARTERIAL BLOOD Non-Lab 01/25/2022 8:13 01/25/2022 8:21 SPECIMEN / Unknown Venipuncture / PM CDT PM CDT Unknown Nathaniel Lima MD CHEMISTRY Performing Organization Address City/State/ZIP Code Phon e Number [facility] [address] [place] [address] LABORATORY-CENTRAL 1999 LABORATORY XR ABDOMEN 2 VIEWS PORTABLE (01/25/2022 [...] s are released immediately into your [facility] medical record. ??You may view this report [...] please contact yo health care provider. INDICATION: Abdominal pain. Recent [...] NOW QTc 477 ms BEYOND NOW P [place] 10 degrees BEYOND NOW R [place] 66 degrees BEYOND NOW T [place] 12 degrees BEYOND NOW Specimen Anatomical Collection Method Collection Time Receive d Time (Source) Location / / Volume Laterality 01/25/2022 6:34 AM 5:41 CDT PM CDT Nathaniel Lima MD EKG ORD Performing Organization Address City/State/ZIP Code Phon e Number BEYOND NOW [place], [place] XR ERCP BILIARY ONLY (01/25/2022 4:35 [...] Eight images obtained during ERCP. 1 min eagle 47 seconds of fluoroscopy time. Procedure Note Nikita Ortega MD - 01/25/2022Fo rmatting of this note might be different from the original. For Patients: As a result of the Cures Act, medical imaging exams and procedure reports are released immediately into your electronic medical record. You may view this report before your referring provider. If you have questions, please contact [facility] health care provider. INDICATION: Cholangitis. TECHNIQUE: Eight images obtained during ERCP. 1 min eagle 47 seconds of fluoroscopy time. IMPRESSION: Guidewire [...] Donaldson MD - 01/25/2022 4:33 AM CDT [place] Patient Name: Amaury Carbajal Procedure José e: 01/25/2022 Gender: Female Date of : 1965 Admit Type: Inpatient Procedure: ERCP Proceduralist: MD Kaleigh Morris Gastroenterology FE Indications/Pre-Op Diagnosis: Suspected ascending cholangitis Medications: General Anesthesia Procedure Description: Risk of bleeding, infection, perforatio n, pancreatitis, need for surgery, remote chance of and alt ernatives were discussed, and the patient gave informed consent. The [facility] [[email or web address] endoscope was pas sed through the mouth, and advanced to the duodenum and used to in ject contrast into the bile duct. The ERCP was accomplished with ease. Th e patient tolerated the procedure well. Complications: No immediate complication s. Estimated Blood Loss & Specimen: Estimated blood loss: none. Specimen collected: None Findings: A monitor technician film of the abdomen was obtaine d. [...] mm biliary sphincterotomy was made with a [employer] e sphincterotome using ERBE electrocautery. There was [...] WITH AUTO DIFFERENTIAL (01/25/2022 2:48 AM CDT) [facility] Method Time Signature WHITE BLOOD 12.6 (H) 4.5 - 01/25/2022 [facility] COUNT 11.0 3:17 AM CDT LABORATORY-ALLEN thou/cu TRAL mm LABORATORY RED BLOOD COUNT 3.41 (L) 4.00 - 01/25/2022 [facility] 5.20 3:17 AM CDT LABORATORY-ALLEN mil/cu mm TRAL LABORATORY HEMOGLOBIN 10.3 (L) 12.0 - 01/25/2022 [facility] 16.0 g/dL 3:17 AM CDT LABORATORY-[facility] TRAL LABORATORY HEMATOCRIT 31.7 (L) 33.0 - 01/25/2022 [facility] 51.0 % 3:17 AM CDT LABORATORY-ALL[facility] TRAL LABORATORY MCV 93 80 - 100 01/25/2022 [facility] fL 3:17 AM CDT LABORATORY-ALLEN TRAL LABORATORY MCH 30.2 26.0 - 01/25/2022 [facility] 34.0 pg 3:17 AM CDT LABORATORY-ALL[facility] TRAL LABORATORY MCHC 32.5 32.0 - 01/25/2022 [facility] 36.0 g/dL 3:17 AM CDT LABORATORY-ALL[facility] TRAL LABORATORY RDW 13.1 11.5 - 01/25/2022 [facility] 15.5 % 3:17 AM CDT LABORATORY-ALL[facility] TRAL LABORATORY PLATELET COUNT 256 140 - 440 01/25/2022 [facility] thou/cu 3:17 AM CDT LABORATORY-ALLEN mm TRAL LABORATORY MPV 10.6 6.5 - 01/25/2022 [facility] 11.0 fL 3:17 AM CDT LABORATORY-ALL[facility] TRAL LABORATORY NRBC 0.0 % 01/25/2022 [facility] 3:17 AM CDT LABORATORY-ALLEN TRAL LABORATORY ABS NRBC 0.0 thou /cu 01/25/2022 [facility] mm 3:17 AM CDT LABORATORY-ALLEN TRAL LABORATORY % NEUT 80.8 % 01/25/2022 [facility] 3:17 AM CDT LABORATORY-ALLEN TRAL LABORATORY % LYMPH 8.4 % 01/25/2022 [facility] 3:17 AM CDT LABORATORY-ALL[facility] TRAL LABORATORY % MONO 8.1 % 01/25/2022 [facility] 3:17 AM CDT LABORATORY-ALL[facility] TRAL LABORATORY % EOS 1.4 % 01/25/2022 [facility] 3:17 AM CDT LABORATORY-ALL[facility] TRAL LABORATORY % BASO 0.5 % 01/25/2022 [facility] 3:17 AM CDT LABORATORY-ALLEN TRAL LABORATORY % IMMATURE GRAN 0.8 % 01/25/2022 [facility] (METAS,MYELOS,WV 3:17 AM CDT LABORATORY- ALL[facility] OS) TRAL LABORATORY ABSOLUTE 10.2 (H) 1.7 - 7.0 01/25/2022 [facility] NEUTROPHILS thou/cu 3:17 AM CDT LABORATORY-ALLEN mm TRAL LABORATORY ABSOLUTE 1.1 0.9 - 2.9 01/25/2022 [facility] LYMPHOCYTES thou/cu 3:17 AM CDT LABORATORY-ALL[facility] mm TRAL LABORATORY ABSOLUTE 1.0 (H) <0.9 01/25/2022 [facility] MONOCYTES thou/cu 3:17 AM CDT LABORATORY-ALLEN mm TRAL LABORATORY ABSOLUTE 0.2 <0.5 01/25/2022 [facility] EOSINOPHILS thou/cu 3:17 AM CDT LABORATORY-ALL[facility] mm TRAL LABORATORY ABSOLUTE 0.1 <0.3 01/25/2022 [facility] BASOPHILS thou/cu 3:17 AM CDT LABORATORY-ALLEN mm TRAL LABORATORY ABSOLUTE 0.1 <0.3 01/25/2022 [facility] IMMATURE thou/cu 3:17 AM CDT LABORATORY-ALLEN GRANULOCYTES(MET mm TRAL ,MYELOS,PROS) LABORATORY Specimen Anatomical Collection Method Collection Time Receive d Time (Source) Location / / Volume Laterality Blood BLOOD SPECIMEN / IV Start / Unknown 01/25/2022 2:48 AM 01/25/2022 3:05 Unknown CDT AM CDT Nathaniel Lima MD HEMATOLOGY Performing Organization Address City/State/ZIP Code Phon e Number [facility] [address] [place] [address] LABORATORY-CENTRAL 2000 LABORATORY LACTATE VENOUS (01/25/2022 2:48 AM CDT) P athologist Signature LACTATE,VENOUS 1.5 0.5 - 2.0 01/25/2022 [facility] mmol/L 3:25 AM CDT LABORATORY-CENT RAL LABORATORY Specimen Anatomical Collection Method Collection Time Receive d Time (Source) Location / / Volume Laterality Blood BLOOD SPECIMEN / IV Start / Unknown 01/25/2022 2:48 AM 01/25/2022 3:07 Unknown CDT AM CDT Nathaniel Lima MD CHEMISTRY Performing Organization Address City/State/ZIP Code Phon e Number [facility] [address] [place] [address] [place] [address] LABORATORY-CENTRAL 1999 LABORATORY Blood Culture (01/25/2022 2:48 AM CDT)Only the most recent of2 resultswithin the time period is included. P athologist Signature CULTURE No Growth. 01/30/2022 [facility] 5:00 AM CDT LABORATORY-CENT RAL LABORATORY Specimen Anatomical Collection Method Collection Time Receive d Time (Source) Location / / Volume Laterality Blood BLOOD SPECIMEN / IV Start / Unknown 01/25/2022 2:48 AM 01/25/2022 3:05 Unknown CDT AM CDT Nathaniel Lima MD MICROBIOLOGY Performing Organization Address City/[facility]/ZIP Code Phon e Number [facility] [address] [place] [address] LABORATORY-CENTRAL 2000 LABORATORY TYPE & SCREEN (01/25/2022 2:48 AM CDT) [facility] gist Method Time Signature ABORH A Rh 01/25/2022 [facility] Positive 5:05 AM CDT LAB-CENTRAL LAB BLOOD BANK ANTIBODY Negative Negative 01/25/2022 [facility] SCREEN 5:05 AM CDT LAB-CENTRAL LAB BLOOD BANK SPECIMEN 01/28/22 01/25/2022 [facility] EXPIRATION 23:59 5:05 AM CDT LAB-CENTRAL DATE/TIME LAB BLOOD BANK Specimen Anatomical Collection Method Collection Time Receive d Time (Source) Location / / Volume Laterality Blood BLOOD SPECIMEN / IV Start / Unknown 01/25/2022 2:48 AM 01/25/2022 3:05 Unknown CDT AM CDT Nathaniel Lima MD BLOOD BANK Performing Organization Address City/[facility]/ZIP Code Phon e Number [facility] LAB-CENTRAL LAB [address] [place] [phone] BLOOD BANK (ABNORMAL) Protime - INR (01/25/2022 2:48 AM CDT) athologist Signature INR 1.2 <1.3 01/25/2022 [facility] 3:25 AM CDT LABORATORY-CENT RAL LABORATORY PROTIME 14.4 (H) 12.0 - 13.8 01/25/2022 [facility] sec 3:25 AM CDT LABORATORY-CENT RAL LABORATORY Specimen Anatomical Collection Method Collection Time Receive d Time (Source) Location / / Volume Laterality Blood BLOOD SPECIMEN / IV Start / Unknown 01/25/2022 2:48 AM 01/25/2022 3:06 Unknown CDT AM CDT Narrative [facility] LABORATORY-CENTRAL LABORAT ORY - 01/25/2022 3:25 AM [...] Nathaniel Lima MD HEMATOLOGY Performing Organization Address [facility] Phon e Number [facility] [address] [place] [address] LABORATORY-CENTRAL 2000 LABORATORY Phosphorus (01/25/2022 2:48 AM CDT) athologist Signature PHOSPHORUS 4.6 2.3 - 4.7 01/25/2022 [facility] mg/dL 3:28 AM CDT LABORATORY-[facility] LABORATORY Specimen Anatomical Collection Method Collection Time Receive d Time (Source) Location / / Volume Laterality Blood BLOOD SPECIMEN / IV Start / Unknown 01/25/2022 2:48 AM 01/25/2022 3:06 Unknown CDT AM CDT Nathaniel Lima MD CHEMISTRY Performing Organization Address [facility] Phon e Number [facility] [address] [place] [address] LABORATORY-[place] [address] LABORATORY (ABNORMAL) COMP METABOLIC PANEL (01/25/2022 2:48 AM CDT) [facility] gist Method Time Signature SODIUM 134 (L) 135 - 145 01/25/2022 [facility] mmol/L 3:30 AM CDT LABORATORY-[facility] TRAL LABORATORY POTASSIUM 4.2 3.5 - 5.0 01/25/2022 [facility] mmol/L 3:30 AM CDT LABORATORY-ALLEN TRAL LABORATORY CHLORIDE 105 98 - 110 01/25/2022 [facility] mmol/L 3:30 AM CDT LABORATORY-ALL[facility] TRAL LABORATORY CO2,TOTAL 22 21 - 31 01/25/2022 [facility] mmol/L 3:30 AM CDT LABORATORY-[facility] TRAL LABORATORY ANION GAP 7 5 - 18 01/25/2022 [facility] 3:30 AM CDT LABORATORY-ALL[facility] TRAL LABORATORY GLUCOSE 152 (H) 65 - 100 01/25/2022 [facility] mg/dL 3:30 AM CDT LABORATORY-[facility] TRAL LABORATORY CALCIUM 8.6 8.5 - 01/25/2022 [facility] 10.5 3:30 AM CDT LABORATORY-[facility] mg/dL TRAL LABORATORY BUN 68 (H) 8 - 25 01/25/2022 [facility] mg/dL 3:30 AM CDT LABORATORY-[facility] TRAL LABORATORY CREATININE 4.54 (H) 0.57 - 01/25/2022 [facility] 1.11 3:30 AM CDT LABORATORY-[facility] mg/dL TRAL LABORATORY BUN/CREAT RATIO 15 10 - 20 01/25/2022 [facility] 3:30 AM CDT LABORATORY-ALLEN TRAL LABORATORY ALBUMIN 3.0 (L) 3.5 - 5.2 01/25/2022 [facility] g/dL 3:30 AM CDT LABORATORY-[facility] TRAL LABORATORY PROTEIN,TOTAL 6.3 6.0 - 8.0 01/25/2022 [facility] g/dL 3:30 AM CDT LABORATORY-[facility] TRAL LABORATORY GLOBULIN 3.3 2.0 - 3.7 01/25/2022 [facility] g/dL 3:30 AM CDT LABORATORY-[facility] TRAL LABORATORY A/G RATIO 0.9 (L) 1.0 - 2.0 01/25/2022 [facility] 3:30 AM CDT LABORATORY-ALL[facility] TRAL LABORATORY BILIRUBIN,TOTAL 0.7 0.2 - 1.2 01/25/2022 [facility] mg/dL 3:30 AM CDT LABORATORY-[facility] TRAL LABORATORY ALK PHOSPHATASE 97 50 - 136 01/25/2022 [facility] IU/L 3:30 AM CDT LABORATORY-[facility] TRAL LABORATORY ALT (SGPT) 40 8 - 45 01/25/2022 [facility] IU/L 3:30 AM CDT LABORATORY-[facility] TRAL LABORATORY AST (SGOT) 82 (H) 2 - 40 01/25/2022 [facility] IU/L 3:30 AM CDT LABORATORY-[facility] TRAL LABORATORY eGFR 11 (L) >90 01/25/2022 [facility] mL/min/1. 3:30 AM CDT LABORATORY-ALL[facility] 73m2 TRAL [...] Nathaniel Lima MD CHEMISTRY Performing Organization Address City/[facility] Phon e Number [facility] [address] [place] [phone] LABORATORY-CENTRAL 1999 LABORATORY (ABNORMAL) MRSA/SA PCR (01/25/2022 2:03 AM CDT) [facility] Method Time Signature MRSA DNA PCR Negative Negative 01/25/2022 [facility] 3:50 AM CDT LABORATORY-CE NTRAL LABORATORY STAPHYLOCOCCUS Positive Negative 01/25/2022 [facility] AUREUS PCR (A) 3:50 AM CDT LABORATORY-CE NTRAL LABORATORY Specimen Anatomical Collection Method Collection Time Receive d Time (Source) Location / / Volume Laterality Other SPECIMEN FROM Non-Blood / 01/25/2022 2:03 AM 01/26/20 22 2:09 INTERNAL NOSE / Unknown CDT AM CDT Unknown Narrative [facility] LABORATORY-CENTRAL LABORAT ORY - 01/25/2022 3:50 AM CDT S. aureus detected; NOT MRSA. Test result does not preclude MRSA nasal colonization. False negative for MRSA could be obtained if MRSA present in the sample is below threshold of detection. Nathaniel Lima MD MICROBIOLOGY Performing Organization Address [facility] Phon e Number [facility] [address] [place] [address] LABORATORY-CENTRAL 1999 LABORATORY (ABNORMAL) URINALYSIS MICROSCOPIC (01/25/2022 2:03 AM CDT) [facility] Method Time Signature RBC 11-25 (A) 0-2, None 01/25/2022 [facility] Seen /HPF 2:59 AM CDT LABORATORY-[facility] TRAL LABORATORY WBC 6-10 (A) 0-2, 3-5, 01/25/2022 [facility] None Seen 2:59 AM CDT LABORATORY-[facility] /HPF TRAL LABORATORY BACTERIA Rare None 01/25/2022 [facility] Seen, 2:59 AM CDT LABORATORY-ALL[facility] Rare, Few TRAL Bacteria/ LABORATORY HPF EPITHELIAL Few None 01/25/2022 [facility] CELLS Seen, Few 2:59 AM CDT LABORATORY-ALL[facility] Epi/HPF TRAL LABORATORY HYALINE CASTS 3-5 0-2, 3-5 01/25/2022 [facility] /LPF 2:59 AM CDT LABORATORY-[facility] TRAL LABORATORY Specimen Anatomical Collection Method Collection Time Receive d Time (Source) Location / / Volume Laterality Urine URINE SPECIMEN / Non-Blood / 01/25/2022 2:03 AM 01/25 2:09 Unknown Unknown CDT AM CDT Nathaniel Lima MD URINE Performing Organization Address City/State/ZIP Code Phon e Number [facility] [address] [address] LABORATORY-CENTRAL 2000 LABORATORY SODIUM,RANDOM URINE (01/25/2022 2:03 AM CDT) P athologist Signature SODIUM,RANDOM <20 mmol/L 01/25/2022 [facility] URINE 6:42 AM CDT LABORATORY-CENT RAL LABORATORY Specimen Anatomical Collection Method Collection Time Receive d Time (Source) Location / / Volume Laterality Urine URINE SPECIMEN / Non-Blood / 01/25/2022 2:03 AM 01/25 2:09 Unknown Unknown CDT AM CDT Nathaniel Lima MD URINE Performing Organization Address City/State/ZIP Code Phon e Number [facility] [address] [place] [address] LABORATORY-CENTRAL 2000 LABORATORY CREATININE,RANDOM URINE (01/25/2022 2:03 AM CDT) P athologist Signature CREAT,RANDOM 33.7 mg/dL 01/25/2022 [facility] URINE 6:06 AM CDT LABORATORY-CENT RAL LABORATORY Comment: REFERENCE RANGE: Age Range ?Female ?M liana All Ages ? 47.0-110.0 mg/dl ??63.0-1 66.0 mg/dl Specimen Anatomical Collection Method Collection Time Receive d Time (Source) Location / / Volume Laterality Urine URINE SPECIMEN / Non-Blood / 01/25/2022 2:03 AM 01/25 2:09 Unknown Unknown CDT AM CDT Nathaniel Lima MD URINE Performing Organization Address City/State/ZIP Code Phon e Number [facility] [address] [place] [address] LABORATORY-CENTRAL 2000 LABORATORY (ABNORMAL) Urinalysis W Reflex Microscopic if Positive (01/25/2022 2:03 AM CDT) [facility] Method Time Signature COLOR Yellow Yellow Color 01/25/2022 [place] [facility] 2:59 AM CDT LABORATORY-CE N[facility]AL LABORATORY CLARITY Cloudy (A) Clear 01/25/2022 [place] [facility] Clarity 2:59 AM CDT LABORATORY-CE [facility] LABORATORY SPECIFIC 1.015 1.010, 01/25/2022 [place] [facility] GRAVITY,URINE 1.015, 2:59 AM CDT LABORATORY-CE 1.020, 1.025 [facility] LABORATORY PH,URINE 5.5 6.0, 7.0, 01/25/2022 [facility] 8.0, 5.5, 2:59 AM CDT LABORATORY-CE 6.5, 7.5, NTRAL 8.5 LABORATORY UROBILINOGEN, Normal Normal EU/dl 01/25/2022 [place] [facility] 2:59 AM CDT LABORATORY-CE NTRAL LABORATORY PROTEIN, 30 (A) Negative 01/25/2022 [place] [facility] URINE mg/dL 2:59 AM CDT LABORATORY-CE N[facility]AL LABORATORY GLUCOSE, Negative Negative 01/25/2022 [place] [facility] URINE mg/dL 2:59 AM CDT LABORATORY-CE NTRAL LABORATORY KETONES,URINE Negative Negative 01/25/2022 [facility] [facility] mg/dL 2:59 AM CDT LABORATORY-CE NTRAL LABORATORY BILIRUBIN,URI Negative Negative 01/25/2022 [place] [facility] NE 2:59 AM CDT LABORATORY-CE NTRAL LABORATORY OCCULT Large (A) Negative 01/25/2022 [facility] BLOOD,URINE 2:59 AM CDT LABORATORY-CE NTRAL LABORATORY NITRITE Negative Negative 01/25/2022 [facility] 2:59 AM CDT LABORATORY-CE NTRAL LABORATORY LEUKOCYTE Trace (A) Negative 01/25/2022 [facility] ESTERASE 2:59 AM CDT LABORATORY-CE NTRAL LABORATORY Specimen Anatomical Collection Method Collection Time Receive d Time (Source) Location / / Volume Laterality Urine URINE SPECIMEN / Non-Blood / 01/25/2022 2:03 AM 01/25 2:09 Unknown Unknown CDT AM CDT Nathaniel Lima MD URINE Performing Organization Address City/State/ZIP Code Phon e Number [facility] [address] [place] [address] LABORATORY-CENTRAL 2000 LABORATORY PATH TISSUE EXAM (01/21/2022 3:55 PM CDT) Component Value Ref Test Analysis Performed At [facility] gist Range Method Time Signature Case Report Pathology Report ?Case: [id number] ? 01/26/2022 [facility] Authorizing Provider: ??Tamar Leon MD ??Collected: ? 01/21/2022 1555 ? 9:02 AM HEALTH Ordering Location: ? [facility] ?Received: ?01/22/20222018 ? CDT ROLO JIMENEZ Pathologist: ? Curtis [...] the wall thickness uniformly measures 0.2 cm. ??Roofing Tile Sorter sections are submitted in 1 cassette (cystic duct margin not readily identified). 9:02 AM HEAL CDT LABORATORY-C Time and date in formalin: 1555 on 01/21/2022 ENTRAL LABORATORY TRB 01/25/2022 Microscopic The final 01/26/2022 [facility] Description diagnosis is 9:02 AM HEALTH based on CDT LABORATORY-C microscopic ENTRAL examination of LABORATORY appropriate sections of all specimens. Additional 01/26/2022 [facility] Information Interpreted at [facility], Central Laboratory - [address], [place] [address] 9:02 AM HEALTH CDT LABORATORY-C ENTRAL LABORATORY Specimen Anatomical Location Collection Method Collection Time Received Time (Source) / Laterality / Volume Other SPECIMEN FROM 01/21/2022 3:55 01/22/2022 8:19 [facility] / PM CDT PM CDT Unknown Tamar Solorzano MD PATHOLOGY/CYTOLOGY Performing Organization Address City/State/ZIP Code Phon e Number [facility] [address] [place] [address] LABORATORY-CENTRAL 1999 LABORATORY LAB TRACKING EVENT (01/21/2022 3:43 PM CDT) Specimen Anatomical Collection Method Collection Time Receive d Time (Source) Location / / Volume Laterality Other (Other) Client Collect / 01/21/2022 3:43 PM 12/27 7:45 Unknown CDT PM CDT Tamar Solorzano MD LAB BILL ONLY Performing Organization Address City/State/ZIP Code Phon e Number [facility] [address] [place] [address] LABORATORY-CENTRAL 1999 LABORATORY from Last 3 Months [...] 12 months since positive culture): resides in acute/tank cooper care, receiving hemodialysis, has chronic open wounds/skin [...] 2013-Presen t WC WORKERS COMP WC NAREN [facility] [id number] 2013-Prese [address] [address] [place] [address] MOTOR VEHICLE [employer] [id number] 2014-Prese [address] [place] [address] [employer] [place] [id number] 2015-Presen [address] [place] [address] [employer] [id number] Effective for [address] [address] [place] [address] BLUE CROSS BLUE CROSS OF [id number] 2015-Presen [address] [place] [address] BLUE CROSS BLUE CROSS OF [id number] 2012-Prese [address] [place] [address] Amaury Carbajal Personal/Family Self [phone]Home) [place] [address] Amaury Carbajal Personal/Family Self [phone] [place] [address] Amaury Carbajal Workers Comp Self [phone] [place] [address] Amaury Carbajal Workers Comp Self [phone] [place] [address] Amaury Carbajal Motor Vehicle Self 1965 [id number] [address] (Home) [place] [address] [facility]/Jorge Luis Employer 03/28/2000 ATTN [employer] x5 (Home) PAYABLE [phone] [address] (Work) [place] [address] Advance Directives Latest Code Status on File [...] Code Status Discussion: Not Discussed Care Teams Metallurgical Analyst Relationship Specialty Start Date End Date Pcp, No PCP - General 12/06/18 . None 01/04/13 . [facility] 02/05/[address] [address]
[2022-02-24 13:34] LABS: C.Difficile Negative (Negative); CDIFFEPI 027 PRESUMPTIVE NEGATIVE (Negative)
== END 2022-02-24 13:21 | disposition home or self-care (01) ==
PROVIDERS: PCP Family Medicine; Visit Provider Surgery
DX: R19.7 Diarrhea, unspecified (principal); Z90.49 Acquired absence of other specified parts of digestive tract
CPT/HCPCS: 87045; 87046; 87077; 87427; 87493

== ENCOUNTER 2022-03-01 14:52 | Outpatient (CLI) | payer OTHER, SELFPAY ==
--- OUTSIDE RECORDS SUMMARY | 2022-03-01 14:56 | XMS_ITS | Clinical Summary ---
:1965 Author Organization [place] Address [address] 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 Last Filed Vital Signs Vital Sign Reading Time Taken Comments Blood Pressure 128/68 11/06/2020 3:31 PM CDT Pulse 75 11/06/2020 3:31 PM CDT Temperature 37 ??C (98.6 ??F) 11/06/2020 3:31 PM CDT Respiratory Rate 19 02/26/2020 1:31 PM WOUND SPECIALIST Oxygen Saturation 96% 11/06/2020 3:31 PM CDT Inhaled Oxygen Concentration - - Weight 111.1 kg (245 lb) 02/09/2022 9:39 AM WOUND SPECIALIST last re corded Height 180.3 cm (5' 11) 02/09/2022 9:39 AM WOUND SPECIALIST pt repo rted Body Mass Index 34.17 02/09/2022 9:39 AM WOUND SPECIALIST Plan of Treatment Health Maintenance Due Date [...] Class 1 obes ity due to ORDER WOUND SPECIALIST excess calories without serious comorbidity with body mass index (BMI) of 34.0 to 34.9 in adult from Last 3 Months Insurance Payer Benefit Plan / Subscriber ID Effective Phone Address T ype Group Dates [facility] [id number] 2016-Pres [phone] [address] O ADVANTAGE ent [address] [place] [address] Care Teams Draw End Hand Relationship Specialty Start Date End Date Nikita Gamble PCP - General Family Medicine 05/26/20 [facility] [address] [place] [address] Mmd Unit Teacher Dietitian, Registered 05/25/18 [facility] [place] [id number] Naveen Casiano MD Assigned PCP 11/16/20 [address] [place], [place] [id number] Mikki Blevins MD MD Endocrinology, 05/07/21 909 [facility] Diabetes, and [place], [place] Metabolism [address] Mikki Blevins MD Assigned Endocrinology 08/02/21 [facility] [place] [address] Mindi Llanes Assigned Surgical 09/26/21 [facility] Provider [address] [place] [address]
--- OUTSIDE RECORDS SUMMARY | 2022-03-01 14:57 | XMS_ITS | Encounter Summary ---
:1965 Author Organization [place] Address [address] [facility] [place] [address] Care Team Providers Name Role Phone Jocelyn Davidson RENATA Unavailable Nikita Gamble Primary Care Provider Naveen Casiano MD Unavailable Mikki Blevins MD Unavailable Mikki Blevins MD Unavailable Mindi Llanes PA-C Unavailable Reason for Visit Reason Comments Medication Refill Encounter Details Date Type Department Care Team Description 12/20/2021 Refill [facility] Surgical Thuan Llanes Medication Refill Weight Loss Clinic E alvaro Macias PA-C [address] [facility] out [address] [facility] [address] [place] [address] [place] [address] [phone] Social History Tobacco Use Types Packs/Day Years Used Date Smoking Tobacco: Never Smokeless Tobacco: Never Alcohol Use Standard Drinks/Week Comments Yes 0 (1 standard drink = 0.6 oz pure alcoho l) rare Sex Assigned at Date Recorded Female 03/04/2020 12:33 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 documented as of this encounter Miscellaneous [...] Depression Total Score: 0 02/26/2020 1:30 PM SCALE AGENT documented as of this encounter Care Teams Large Animal Veterinarian Relationship Specialty Start Date End Date Nikita Gamble PCP - General Family Medicine 05/26/20 [facility] [address] [place] [address] Title I Paraprofessional Dietitian, Registered 05/25/18 [facility] [place] [address] Naveen Casiano MD Assigned PCP 11/16/[address] [place] [address] Mikki Blevins MD MD Endocrinology, 05/07/21 909 [facility] Diabetes, and [place], [place] Metabolism [address] Mikki Blevins MD Assigned Endocrinology 08/02/21 [facility] Provider CLINIC [place], [place] [phone] Mindi Llanes Assigned Surgical 09/26/21 [facility] Provider [address] [place], [place] [address] documented as of this encounter
--- OUTSIDE RECORDS SUMMARY | 2022-03-01 14:57 | XMS_ITS | Encounter Summary ---
:1965 Author Organization [place] Address [address] [place] [address] Care Team Providers Name Role Phone Jocelyn Davidson RENATA Unavailable Nikita Gamble Primary Care Provider Naveen Casiano MD Unavailable Mikki Blevins MD Unavailable Mikki Blevins MD Unavailable Reason for Visit Reason Onset Date Comments Class 2 severe obesity with serious comorbidity and body ma No Show 09/08/2021 Encounter Details Date Type Department Care Team Description 09/08/2021 Virtual Visit [facility] Mikki Blevins MD No-show for Specialty Clinic [place] [facility] appointm ent (Primary [facility] Dx) [address] [facility] [address] [address] [place] [address] [phone] Social History Tobacco Use Types Packs/Day Years Used Date Smoking Tobacco: Never Smokeless Tobacco: Never Alcohol Use Standard Drinks/Week Comments Yes 0 (1 standard drink = 0.6 oz pure alcoho l) rare Sex Assigned at Date Recorded Female 03/04/2020 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 Diabetes, and [place], [place] Metabolism [address] Mikki Blevins MD Assigned Endocrinology 08/02/21 [facility] [place] [address] documented as of this encounter
--- OUTSIDE RECORDS SUMMARY | 2022-03-01 14:57 | XMS_ITS | Encounter Summary ---
:1965 Author Organization [place] Address [address] [facility] [place] [address] Care Team Providers Name Role Phone Jocelyn Davidson Bran YANEZ Unavailable Nikita Gamble Primary Care Provider Naveen Casiano MD Unavailable Mikki Blevins MD Unavailable Mikki Blevins MD Unavailable Reason for Visit Reason Onset Date Comments Left Message To Call 09/21/2021 Encounter Details Date Type Department Care Team Description 09/21/2021 Telephone [facility] Mindi Llanes Left Me ssage To Call Surgical Weight Loss Leah Macias [address] [address] [place] [address] [phone] Social History Tobacco Use Types Packs/Day Years Used Date Smoking Tobacco: Never Smokeless Tobacco: Never Alcohol Use Standard Drinks/Week Comments Yes 0 (1 standard drink = 0.6 oz pure alcoho l) rare Sex Assigned at Date Recorded Female 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 documented as of this encounter Miscellaneous Notes [...] Depression Total Score: 0 02/26/2020 1:30 PM SWITCHBOARD INSTALLER documented as of this encounter Care Teams Hunting And Fishing Guide Relationship Specialty Start Date End Date Nikita Gamble PCP - General Family Medicine 05/26/[address] Automobile Mechanic Helper Dietitian, Registered 05/25/[address] [place] [address] Naveen Casiano MD Assigned PCP 11/16/20 [address] [place] [address] Mikki Blevins MD MD Endocrinology, 05/07/21 909 [facility] Diabetes, and [place], [place] Metabolism [address] Mikki Blevins MD Assigned Endocrinology 08/02/21 [facility] CLIN[facility] [place], [place] [id number] documented as of this encounter
--- OUTSIDE RECORDS SUMMARY | 2022-03-01 14:57 | XMS_ITS | Encounter Summary ---
:1965 Author Organization [place] Address [facility] [place] [address] Care Team Providers Name Role Phone Jocelyn [...] Date Recorded Female 03/04/2020 12:33 PM DATA PROCESSOR documented as of this encounter Plan of Treatment Not on filedocumented as of this encounter Visit Diagnoses Not on filedocumented in this encounter Additional Health Concerns Assessment Noted Time PHQ-9 Depression Total Score: 0 02/26/2020 1:30 PM DATA PROCESSOR documented as of this encounter Care Teams Manager Long Term Care Relationship Specialty Start Date End Date Nikita Gamble PCP - General Family Medicine 05/26/20 [facility] [address] [place] [address] Greens Laborer Dietitian, Registered 05/25/18 [facility] [place] [address] Naveen Casiano MD Assigned PCP 11/16/20 [address] [address] [employer] [facility] [place], [place] [phone] Harlan Lin Assigned Endocrinology 12/07/20 08/01/21 MD [facility] Provider NO INFO AVAILABLE Mikki Blevins MD MD Endocrinology, 05/07/21 909 [facility] Diabetes, and [place], [place] Metabolism [address] documented as of this encounter
--- OUTSIDE RECORDS SUMMARY | 2022-03-01 14:57 | XMS_ITS | Encounter Summary ---
:1965 Author Organization [place] Address [address] [facility] [place] [address] Care Team Providers Name Role Phone Jocelyn Davidson Bran YANEZ Unavailable Nikita Gamble Primary Care Provider Naveen Casiano MD Unavailable Harlan Lin MD Unavailable Unavailable Encounter Details Date Type Department Care Team Description 01/05/2021 Lab [facility] Clinic Typ e 1 diabetes mellitus with [facility] stage 3a chronic kidney [address] [facility] disease (H) [place], [place] [phone] Social History Tobacco Use Types Packs/Day Years Used Date Smoking Tobacco: Never Smokeless Tobacco: Never Alcohol Use Standard Drinks/Week Comments Yes 0 (1 standard drink = 0.6 oz pure alcoho l) rare Sex Assigned at Date Recorded Female 03/04/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 COVID-19 Exposure Response Date Recorded In [...] City/State/ZIP Code Phon e [place] [address] [phone] [facility] [address] [facility] Lab (no room number, 1st floor of clinic) [facility] [place], [place] [phone] [facility] [address] Lab [address] [facility] Lab (no room number, 1st floor [...] Address City/[facility] Phon e Number OX LABORATORY [place], [place] [phone] [facility] [address] [place] [address] Lab (no room number, 1st floor of clinic) [facility], [place] [phone] [facility] [address] [address] Lab (no room number, 1st floor [...] Address City/[facility] Phon e Number [facility]ORAT[facility] [place], [place] [phone] [facility] [address] [place] [address] Lab (no room number, 1st floor of clinic) [facility]ATORY [place], [place] [phone] [facility] [address] [address] Lab (no room number, 1st floor of clinic) (ABNORMAL) Lipid panel reflex to direct LDL Fasting (01/05/2021 3:03 PM CDT) [facility] gist Method Time Signature Cholesterol 203 (H) [...] City/State/ZIP Code Phon e Number OX LABORATORY [facility] Clinic - [place], [place] [phone] [place] [facility] [address] Lab (no room number, 1st floor of clinic) O[facility] LAB[place]ATORY [place], [place] [phone] [facility] [place] [address], [facility] [address] Lab (no room number, 1st floor of clinic) (ABNORMAL) BASIC METABOLIC PANEL (01/05/2021 3:03 PM CDT) [facility] gist Method Time Signature Sodium 134 133 [...] Address City/[facility] Phon e Number OX LABORATORY [facility] [place], [place] [phone] [place] [facility] [address] [address] Lab (no room number, 1st floor of clinic) OX LABORATORY [place], [place] [phone] [facility] [address] [address] Lab (no room number, 1st floor [...] LAB - BLOOD ORDERABLES Performing Organization Address [facility] Phon e Number OX LABORATORY [facility] [place], [place] [phone] [place] [facility] [address] [place] [address] Lab (no room number, 1st floor of clinic) [facility] LABORATORY [place], [place] [phone] [facility] [address] [address] Lab (no room number, 1st floor of clinic) documented in this encounter Visit Diagnoses Diagnosis Type 1 diabetes mellitus with stage 3a c hronic kidney disease (H) documented in this encounter Additional Health Concerns Assessment Noted Time PHQ-9 Depression Total Score: 0 02/26/2020 1:30 PM FUNERAL HOME ASSISTANT documented as of this encounter Care Teams Mechanical Design Engineer Products Relationship Specialty Start Date End Date Nikita Gamble PCP - General Family Medicine 05/26/[address] Advertising Copywriter Dietitian, Registered 05/25/18 [facility] MAGG[facility] [place] [place] [address] Naveen Casiano MD Assigned PCP 11/16/20 [address] [place], [place] [phone] Harlan Lin Assigned Endocrinology 12/07/20 08/01/21 MD [facility] Provider NO INFO AVAILABLE documented as of this encounter
--- OUTSIDE RECORDS SUMMARY | 2022-03-01 14:57 | XMS_ITS | Encounter Summary ---
:1965 Author Organization [place] Address [address] [facility] [place] [address] Care Team Providers Name Role Phone Jocelyn Davidson RENATA Unavailable Nikita Gamble Primary Care Provider Naveen Casiano MD Unavailable Mikki Blevins MD Unavailable Mikki Blevins MD Unavailable Mindi Llanes PA-C Unavailable Reason for Visit Reason Onset Date Comments Medication Question 09/14/2021 OZEMPIC Encounter Details Date Type Department Care Team Description 09/14/2021 Telephone [facility] Mikki Blevins MD Medication Question Specialty Clinic Adithya na [facility] [facility] (OZEMPIC) [address] [address] [place] [address] [phone] Social History Tobacco Use Types Packs/Day Years Used Date Smoking Tobacco: Never Smokeless Tobacco: Never Alcohol Use Standard Drinks/Week Comments Yes 0 (1 standard drink = 0.6 oz pure alcoho l) rare Sex Assigned at Date Recorded Female 03/04/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 Pt [...] Depression Total Score: 0 02/26/2020 1:30 PM MIDDLE SCHOOL READING TEACHER documented as of this encounter Care Teams Clinical Cytopathologist Relationship Specialty Start Date End Date Nikita Gamble PCP - General Family Medicine 05/26/20 [facility] [address] [place] [address] Poly Operator Dietitian, Registered 05/25/[address] [place] [address] Naveen Casiano MD Assigned PCP 11/16/20 [address] [place] [address] Mikki Blevins MD MD Endocrinology, 05/07/[address] [facility] Diabetes, and [place], [place] Metabolism [address] Mikki Blevins MD Assigned Endocrinology 08/02/21 [facility] [place] [address] Mindi Llanes Assigned Surgical 09/26/21 [facility] Provider [address] [place] [address] documented as of this encounter
--- OUTSIDE RECORDS SUMMARY | 2022-03-01 14:57 | XMS_ITS | Encounter Summary ---
:1965 Author Organization [place] Address [address] [facility] [place] [address] Care Team Providers Name Role Phone Jocelyn [...] (H) Mikki Blevins MD Weight Loss Clinic [facility] [address] [place] [address] [address] [place] [address] Phone: Fax: Referral ID Status Reason Start Date Expiration Date Visits V isits Requested Authorized [id number] Pending 07/28/2021 07/28/2022 1 1 Review Reason for Visit Reason Comments New Patient Diabetes Encounter Details Date Type Department Care Team Description 07/28/2021 Virtual Visit [facility] Mikki Blevins MD Class 2 severe obesity with serious chucho rbidity and body mass index (BMI) of 36.0 to 36.9 in adult, unspecified obesity type (H) (Primary Dx); Specialty Clinic [facility] Morbid o besity (H); [facility] Type 1 diabetes mellitus with stage 3a c hronic kidney disease (H); [address] [facility] [place] 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 [facility] [address] [address] [place] [phone] [address] (Work) [phone] Social History Tobacco Use Types Packs/Day Years Used Date Smoking Tobacco: Never Smokeless Tobacco: Never Alcohol Use Standard Drinks/Week Comments Yes 0 (1 standard drink = 0.6 oz pure alcoho l) rare Sex Assigned at Date Recorded Female 03/04/2020 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 Location): [place], [place] Distant Location (provider location): Home Platform used for Video Visit: MD Marnie Greer is a 56 year old yo female who presents today for evaluation of diabetes melltius type 1 via a billable video visit. Last seen by Dr Lin 12/03/2020. 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 New [...] Depression Total Score: 0 02/26/2020 1:30 PM WOOD HEEL CEMENTER documented as of this encounter Care Teams Pattern Developer Relationship Specialty Start Date End Date Nikita Gamble PCP - General Family Medicine 05/26/20 [facility] [address] [place] [address] Maintenance Worker Swimming Pool Dietitian, Registered 05/25/18 [facility] [place] [address] Naveen Casiano MD Assigned PCP 11/16/20 [address] [place], [place] [phone] Harlan Lin Assigned Endocrinology 12/07/20 08/01/21 MD [facility] Provider NO INFO AVAILABLE Mikki Blevins MD MD Endocrinology, 05/07/[address] [facility] Diabetes, and [place], [place] Metabolism [address] documented as of this encounter
--- OUTSIDE RECORDS SUMMARY | 2022-03-01 14:57 | XMS_ITS | Encounter Summary ---
:1965 Author Organization [place] Address [address] [facility] [place] [address] Care Team Providers Name Role Phone Jocelyn Davidson RENATA Unavailable Nikita Gamble Primary Care Provider Naveen Casiano MD Unavailable Mikki Blevins MD Unavailable Mikki Blevins MD Unavailable Mindi Llanes PA-C Unavailable [phone] Reason for Referral Medication Prior Authorization - Denied Specialty Diagnoses / Procedures Referred By Contact Refer red To Contact Diagnoses Class 1 obesity due to excess calories without serious comorbidity with body mass index (BMI) of 34.0 to 34.9 in adult Mindi Llanes PA-C [address] [facility] [address] [place] [address] Referral ID Status Reason Start Date Expiration Date Visits Requ ested Visits Authorized [id number] Denied 1 1 OPERATIONS SUPERVISOR Reason for Visit Reason Comments RECHECK Return mary MIRAMONTES Encounter Details Date Type Department Care Team Description 02/09/2022 Virtual Visit [facility] Mindi Llanes Class 1 obesity due Surgical Weight Loss Leah Macias to excess calories Clinic [place] [address] without serious [address] comorbidity with body [place] [address] mass index (BMI) of [address] 34.0 to 34.9 in adult [place] [address] (Work) [phone] Social History Tobacco Use Types Packs/Day Years Used Date Smoking Tobacco: Never Smokeless Tobacco: Never Tobacco Cessation: Counseling Given: Not Answered Alcohol Use Standard Drinks/Week Comments Yes 0 (1 standard drink = 0.6 oz pure alcoho l) rare Sex Assigned at Date Recorded Female 03/04/2020 12:33 PM 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 OPERATIONS SUPERVISOR documented as of this encounter Last Filed Vital Signs Vital Sign Reading Time Taken Comments Blood Pressure - - Pulse - - Temperature - - Respiratory Rate - - Oxygen Saturation - - Inhaled Oxygen Concentration - - Weight 111.1 kg (245 lb) 02/09/2022 9:39 AM DOCK OPERATIONS SUPERVISOR last re corded Height 180.3 cm (5' 11) 02/09/2022 9:39 AM DOCK OPERATIONS SUPERVISOR pt repo rted Body Mass Index 34.17 02/09/2022 9:39 AM DOCK OPERATIONS SUPERVISOR documented in this encounter Patient Instructions Patient InstructionsDvMindi novak PA-C - 02/09/2022 9:30 AM DOCK OPERATIONS SUPERVISOR Nice to talk with you today. Thank you for allowing me the privilege of caring for you. We hope we provided you with the excellent service you deserve. To ensure the quality of our services you may receive a patient satisfaction survey from an [employer]. The greatest compliment you can give is [...] of protein in it. FOLLOW-UP: Please call [phone] to schedule your next visit in 3 months. Follow up with heavy duty mechanic now. Dear Patient, We hope to provide [...] 400lb that have blue-tooth for connecting to Clarivoy. Scale to purchase: the Swivel ???Body?? Scale: https://www.[employer]/us/en/body/shop?gclid=[email or web address]=aw.ds Discount Code: We have a discount code for our patients to bring the cost down to $50, [place]_Scale_20%off Steps to link the scale to Clarivoy via an Android Phone (you can always disconnect at any point in the future): The order must be placed first before the patient can access Track My Health within Clarivoy. Download Google TagCash chrissy from the [employer] Log in or register using your Google account Download the Clarivoy chrissy from [employer] Select add organization Search for [employer] and select it Log into Clarivoy Select Track My Health Select the green connect my account button When prompted log into your Google account Select okay to confirm the account Download the [employer] Mate chrissy from [employer] [place] for Swivel Go to profile Tap [employer] under the Apps section Select the option to activate Google TagCash integration Select the same Google account Select okay to confirm the account Steps to link the scale to Clarivoy via an iPhone (you can always disconnect at any point in the future): Note SigFig is not available for download on an iPad The order must be placed first before the patient can access Track My Health within Clarivoy. Locate the Health chrissy on your iPhone. Set up your SigFig account as prompted The Sources page will show Apps that communicate with your Health chrissy. Once all steps are completed,you should see [employer] and [employer] listed under the Apps section and your iPhone under the devices section. Select Health Mate Under 'ALLOW ???HEALTH MATE?? TO WRITE DATA ensure the toggle is on for Weight. This will allow the scale to add your weight to the SigFig Select MyChart Under 'ALLOW ???MYCHART?? TO READ DATA ensure the toggle is on for Weight. This allows Clarivoy to grab the weight from SigFig so your provider can see your weights. Download the Clarivoy chrissy from the Chrissy Store Select [employer] organization Search for [employer] and select it Log into Clarivoy Select Track My Health Select the green connect my account button Follow prompts to link your device to Clarivoy. Download the Swivel health Easydiagnosis chrissy in the Chrissy Store [place] for Swivel Go to profile Tap Health under the Apps section If prompted to allow access with the Health Chrissy, toggle weight on for read and write access. OPERATIONS SUPERVISOR documented in this encounter Progress Notes Mindi Llanes PA-C - 02/09/2022 9:30 AM CST Marnie is a 56 year old who is being evaluated via a billable video visit. If the video visit is dropped, the invitation should be resent by: Text to cell phone: [phone] Will anyone else be joining your video visit? No Video-Visit Details Type of service: Video Visit Video Start Time: 9:44 AM Video End Time: 10:05 AM Originating Location (pt. Location): Home Distant Location (provider location): [facility] Platform used for Video Visit: Martin, Had trouble connecting so needed to critical access hospital to telephone visit. 02/09/2022 Return Medical [...] of protein in it. FOLLOW-UP: Please call [phone] to schedule your next visit in 3 months. Follow up with heavy duty mechanic now. 40 minutes spent on the date [...] and no distress Sincerely, Mindi Llanes PA-C OPERATIONS SUPERVISOR documented in this encounter Miscellaneous Notes Assessment [...] to a protein drink like ensure max. OPERATIONS SUPERVISOR documented in this encounter Plan of Treatment Not on filedocumented as of this encounter Procedures Procedure Name Priority Date/Time Associated Diagnosis Comme nts HOME WEIGHT FLOWSHEET Routine 02/09/2022 12:21 PM Class 1 obes ity due to ORDER DOCK OPERATIONS SUPERVISOR excess calories without serious comorbidity with body mass index (BMI) of 34.0 to 34.9 in adult documented in this encounter Visit Diagnoses Diagnosis Class 1 obesity due to excess calories w ithout serious comorbidity with body mass index (BMI) of 34.0 to 34.9 in adult documented in this encounter Additional Health Concerns Assessment Noted Time PHQ-9 Depression Total Score: 0 02/26/2020 1:30 PM DOCK OPERATIONS SUPERVISOR documented as of this encounter Care Teams Speech And Drama Teacher Relationship Specialty Start Date End Date Nikita Gamble PCP - General Family Medicine 05/26/[address] Tripe Scraper Dietitian, Registered 05/25/18 [facility] - [address] [place] [address] Naveen Casiano MD Assigned PCP 11/16/20 [address] [place] [address] Mikki Blevins MD MD Endocrinology, 05/07/21 [address] [facility] Diabetes, and [place], [place] Metabolism [address] Mikki Blevins MD Assigned Endocrinology 08/02/21 [facility] [place], [place] [id number] Mindi Llanes Assigned Surgical 09/26/21 PRETT[facility]ias Provider [address] [place] [address] documented as of this encounter
--- OUTSIDE RECORDS SUMMARY | 2022-03-01 14:57 | XMS_ITS | Encounter Summary ---
:1965 Author Organization [place] Address [address] [facility] [place] [address] Care Team Providers Name Role Phone Jocelyn Davidson RENATA Unavailable Nikita Gamble Primary Care Provider Naveen Casiano MD Unavailable Harlan Lin MD Unavailable Unavailable Mikki Blevins MD Unavailable Reason for Visit Reason Comments Medication Refill levothyroxine (SYNTHROID/LEV OTHROID) 175 MCG tablet Encounter Details Date Type Department Care Team Description 06/22/2021 Refill [facility] LucasPavel Banegas MD (levothyroxine [address] [facility] NO INFO (SYNTHROID/LEVOTHROID) [place], [place] AVAILABLE 175 MCG tab let) [id number] Social History Tobacco Use Types Packs/Day Years Used Date Smoking Tobacco: Never Smokeless Tobacco: Never Alcohol Use Standard Drinks/Week Comments Yes 0 (1 standard drink = 0.6 oz pure alcoho l) rare Sex Assigned at Date Recorded Female 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 documented as of this encounter Miscellaneous Notes [...] Depression Total Score: 0 02/26/2020 1:30 PM LECTURER IN MARKETING documented as of this encounter Care Teams Crossing Flagman Relationship Specialty Start Date End Date Nikita Gamble PCP - General Family Medicine 05/26/20 [facility] [address] [place] [address] Author Dietitian, Registered 05/25/18 [facility] [address] [place] [address] [place] [address] Naveen Casiano MD Assigned PCP 11/16/20 [address] [place] [address] Harlan Lin Assigned Endocrinology 12/07/20 08/01/21 [facility] Provider NO INFO AVAILABLE Mikki Blevins MD MD Endocrinology, 05/07/[address] [facility] Diabetes, and [place], [place] Metabolism [address] documented as of this encounter
--- OUTSIDE RECORDS SUMMARY | 2022-03-01 14:57 | XMS_ITS | Encounter Summary ---
:1965 Author Organization [place] Address [address] [facility] [place] [address] Care Team Providers Name Role Phone Jocelyn Davidson RENATA Unavailable Nikita Gamble Primary Care Provider Naveen Casiano MD Unavailable Mikki Blevins MD Unavailable Mikki Blevins MD Unavailable Mindi Llanes PA-C Unavailable [phone] Reason for Visit Reason Onset Date Comments Refill Request 12/24/2021 phentermine Encounter Details Date Type Department Care Team Description 12/24/2021 Telephone [facility] Mindi Llanes Refill Request Surgical Weight Loss Leah Macias (phentermine) [address] [place] [address] [place] [address] [phone] Social History Tobacco Use Types Packs/Day Years Used Date Smoking Tobacco: Never Smokeless Tobacco: Never Alcohol Use Standard Drinks/Week Comments Yes 0 (1 standard drink = 0.6 oz pure alcoho l) rare Sex Assigned at Date Recorded 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 Alix Kim, MS, RD, RN Telephone Encounter - Trinidad Lamb - 12/24/2021 4:22 PM CDT Reason for Call: Medication or medication refill: Do you use a [facility]? 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 TRUCK DRIVER documented as of this encounter Care Teams Summer Analyst Relationship Specialty Start Date End Date Nikita Gamble PCP - General Family Medicine 05/26/20 [facility] [address] [place] [address] Manager Of Transportation Dietitian, Registered 05/25/18 [facility] [place] [address] Naveen Casiano MD Assigned PCP 11/16/20 [address] [place], [place] [phone] Mikki Blevins MD MD Endocrinology, 05/07/[address] Diabetes, and [place], [place] Metabolism [address] Mikki Blevins MD Assigned Endocrinology 08/02/21 [facility] [place], [place] [id number] Mindi Llanes Assigned Surgical 09/26/21 PRETTY Macias Provider [address] [place], [place] [address] documented as of this encounter
--- OUTSIDE RECORDS SUMMARY | 2022-03-01 14:57 | XMS_ITS | Encounter Summary ---
:1965 Author Organization [place] Address [address] [facility] [place] [address] Care Team Providers Name Role Phone Jocelyn Davidson RENATA Unavailable Nikita Gamble Primary Care Provider Naveen Casiano MD Unavailable Mikki Blevins MD Unavailable Mikki Blevins MD Unavailable Reason for Referral Diagnostic Imaging NM (Routine) - Pending Review Specialty Diagnoses / Procedures Referred By Contact Refer red To Contact Diagnoses Gastroparesis Mikki Blevins MD Procedures [place] [address] Referral ID Status Reason Start Date Expiration Date Visits V isits Requested Authorized [id number] Pending 09/17/2021 09/17/2022 1 1 Review Encounter Details Date Type Department Care Team Description 09/17/2021 Orders Only [facility] Mikki Blevins MD Gastroparesis (Primary Specialty Clinic [place] [facility] Dx) [facility] [address] [facility] [address] [address] [place] [address] [phone] Social History Tobacco Use Types Packs/Day Years Used Date Smoking Tobacco: Never Smokeless Tobacco: Never Alcohol Use Standard Drinks/Week Comments Yes 0 (1 standard drink = 0.6 oz pure alcoho l) rare Sex Assigned at Date Recorded 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 as of this encounter Progress Notes Mikki Blevins MD - 09/17/2021 11:45 AM CDT Called to review Ozempic dosing Significant life stressors over past few weeks- Fired from work at [employer] No BM x8 days Bloated/looked like [...] Depression Total Score: 0 02/26/2020 1:30 PM DISTRIBUTION TRANSFORMER ASSEMBLER documented as of this encounter Care Teams Men'S Basketball Coach Relationship Specialty Start Date End Date Nikita Gamble PCP - General Family Medicine 05/26/20 [facility] [address] [place] [address] Talk Show Host Dietitian, Registered 05/25/18 [facility] [address] [place] [address] SHARAN CARSON [id number] Naveen Casiano MD Assigned PCP 11/16/20 [address] [place], [place] [id number] Mikki Blevins MD MD Endocrinology, 05/07/21 [address] [facility] Diabetes, and [place], [place] Metabolism [address] Mikki Blevins MD Assigned Endocrinology 08/02/21 [facility] [place] [address] documented as of this encounter
--- OUTSIDE RECORDS SUMMARY | 2022-03-01 14:57 | XMS_ITS | Encounter Summary ---
:1965 Author Organization [place] Address [address] [facility] [place] [address] Care Team Providers Name Role Phone Jocelyn Davidson Bran YANEZ Unavailable Nikita Gamble Primary Care Provider Naveen Casiano MD Unavailable Harlan Lin MD Unavailable Unavailable Reason for Visit Reason Comments Medication Refill Encounter Details Date Type Department Care Team Description 03/14/2021 Refill [facility] Annette Alvarez, Medication Refill [address] [phone] [place] [address] (Wo rk) Social History Tobacco Use Types Packs/Day Years Used Date Smoking Tobacco: Never Smokeless Tobacco: Never Alcohol Use Standard Drinks/Week Comments Yes 0 (1 standard drink = 0.6 oz pure alcoho l) rare Sex Assigned at Date Recorded 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 as of 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 encounter Miscellaneous Notes Telephone Encounter - Kandi Rooney RN - 03/17/2021 8:49 AM CST Routing refill request to provider for review/approval because: Labs out of range: TSH Patient needs to be seen because it has been more than 1 year since last office visit as patient seen Annette Alvarez DRIER documented in this encounter Plan of Treatment Not on filedocumented as of this encounter Visit Diagnoses Diagnosis Type 1 diabetes mellitus with stage 3a c hronic kidney disease (H) - Primary 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 documented in this encounter Additional Health Concerns Assessment Noted Time PHQ-9 Depression Total Score: 0 02/26/2020 1:30 PM RICE DRIER documented as of this encounter Care Teams Condenser Cleaner Relationship Specialty Start Date End Date Nikita Gamble PCP - General Family Medicine 05/26/20 [facility] [address] [place] [address] Job Compositor Dietitian, Registered 05/25/[address] [place] [address] Naveen Casiano MD Assigned PCP 11/16/20 [address] [place] [address] Harlan Lin Assigned Endocrinology 12/07/20 08/01/21 MD Bassam Provider NO INFO AVAILABLE documented as of this encounter
--- OUTSIDE RECORDS SUMMARY | 2022-03-01 14:57 | XMS_ITS | Encounter Summary ---
:1965 Author Organization [place] Address [facility] 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 COVID-19 Exposure Response Date Recorded In the [...] Depression Total Score: 0 02/26/2020 1:30 PM OXIDIZED FINISH PLATER documented as of this encounter Care Teams Management Recruiter Relationship Specialty Start Date End Date Nikita Gamble PCP - General Family Medicine 05/26/20 [facility] [address] [place] [address] Oracle Developer Dietitian, Registered 05/25/18 [facility] [place] [address] Naveen Casiano MD Assigned PCP 11/16/20 [address] [place] [address] Harlan Lin Assigned Endocrinology 12/07/20 08/01/21 MD Bassam Provider NO INFO AVAILABLE documented as of this encounter
--- OUTSIDE RECORDS SUMMARY | 2022-03-01 14:57 | XMS_ITS | Encounter Summary ---
:1965 Author Organization [place] Address [address] [facility] [place] [address] Care Team Providers Name Role Phone Jocelyn Davidson RENATA Unavailable Nikita Gamble Primary Care Provider Naveen Casiano MD Unavailable Mikki Blevins MD Unavailable Mikki Blevins MD Unavailable Mindi Llanes PA-C Unavailable [phone] Encounter Details Date Type Department Care Team Description 09/29/2021 Virtual Visit [facility] Surgical 3, Sh Wl Diet , RD No Show Weight Loss Clinic [address] [place] [address] Social History Tobacco Use Types Packs/Day Years Used Date Smoking Tobacco: Never Smokeless Tobacco: Never Alcohol Use Standard Drinks/Week Comments Yes 0 (1 standard drink = 0.6 oz pure alcoho l) rare Sex Assigned at Date Recorded Female 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 documented as of this encounter Progress Notes Haven Keen - 09/29/2021 8:30 AM CDT No charge/no show documented in this encounter Plan of Treatment Not on filedocumented as of this encounter Visit Diagnoses Not on filedocumented in this encounter Additional Health Concerns Assessment Noted Time PHQ-9 Depression Total Score: 0 02/26/2020 1:30 PM TREATER documented as of this encounter Care Teams Tankerman Relationship Specialty Start Date End Date Nikita Gamble PCP - General Family Medicine 05/26/20 [facility] [address] [place] [address] Type Rolling Machine Operator Dietitian, Registered 05/25/[address] [facility] [address] [place] [address] [place] [address] Naveen Casiano MD Assigned PCP 11/16/20 [address] [place] [address] Mikki Blevins MD MD Endocrinology, 05/07/21 [address] [facility] Diabetes, and [place], [place] Metabolism [address] Mikki Blevins MD Assigned Endocrinology 08/02/21 [facility] [place], [place] [phone] Mindi Llanes Assigned Surgical 09/26/21 PRETTY Macias Provider [address] [facility] [address] [place] [address] documented as of this encounter
--- OUTSIDE RECORDS SUMMARY | 2022-03-01 14:57 | XMS_ITS | Encounter Summary ---
:1965 Author Organization [place] Address [address] [facility] [place] [address] Care Team Providers Name Role Phone Jocelyn Davidson RENATA Unavailable Nikita Gamble Primary Care Provider Naveen Casiano MD Unavailable Mikki Blevins MD Unavailable Mikki Blevins MD Unavailable Mindi Llanes PA-C Unavailable [phone] Reason for Visit Reason Comments Medication Refill Encounter Details Date Type Department Care Team Description 11/09/2021 Refill [facility] Mikki Blevins MD Medication Refill [facility] [address] [place] [address] [place], [place] [phone] (W ork) [address] [phone] Social History Tobacco Use Types Packs/Day Years Used Date Smoking Tobacco: Never Smokeless Tobacco: Never Alcohol Use Standard Drinks/Week Comments Yes 0 (1 standard drink = 0.6 oz pure alcoho l) rare Sex Assigned at Date Recorded 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 documented as of this encounter Miscellaneous Notes [...] Depression Total Score: 0 02/26/2020 1:30 PM SUPERINTENDENT LAUNDRY documented as of this encounter Care Teams Folder Machine Operator Relationship Specialty Start Date End Date Nikita Gamble PCP - General Family Medicine 05/26/[address] Publications Production Supervisor Dietitian, Registered 05/25/18 [facility] [address] [place] [address] [place] [address] Naveen Casiano MD Assigned PCP 11/16/20 [address] [place] [address] Mikki Blevins MD MD Endocrinology, 05/07/[address] [facility] Diabetes, and [place], [place] Metabolism [address] Mikki Blevins MD Assigned Endocrinology 08/02/21 [facility] Provider [place], [place] [id number] Mindi Llanes Assigned Surgical 09/26/21 PRETTY Macias Provider [address] [facility] [address] [place], [place] [address] documented as of this encounter
--- OUTSIDE RECORDS SUMMARY | 2022-03-01 14:57 | XMS_ITS | Encounter Summary ---
:1965 Author Organization [place] Address [address] [place] [address] Care Team Providers Name Role Phone StuartJocelyn [...] stage 3a (H) Mindi Llanes PA-C [address] [facility] [address] [place] [address] Referral ID Status Reason Start Date Expiration Date Visits V isits Requested Authorized [id number] Pending 09/22/2021 09/22/2022 1 1 Review Reason [...] (H) Mikki Blevins MD [facility] [address] [place] [address] [address] [place] [address] Phone: Fax: Referral ID Status Reason Start Date Expiration Date Visits V isits Requested Authorized [id number] Pending 07/28/2021 07/28/2022 1 1 Review Encounter Details Date Type Department Care Team Description 09/22/2021 Virtual Visit [facility] Mindi Llanes Class 2 severe obesity due to excess calories with serious comorbidity and body mass index (BMI) of 36.0 to 36.9 in adult (H) (Primary Dx); Surgical Weight Loss Leah Macias-Ashlee Type 1 diabetes mellitus with complicati ons (H); [facility] [place] [address] Chronic kidney disease, stag e 3a (H); [address] [facility] [address] Benign essential hypertension; [place] [address] Acquired hypothyroidism; [address] Uncontrolled type 1 diabetes with renal manifestation (H); [place] [address] (Work) Migraine with status migrainosus, not in tractable, unspecified migraine type [phone] Social History Tobacco Use Types Packs/Day Years Used Date Smoking Tobacco: Never Smokeless Tobacco: Never Alcohol Use Standard Drinks/Week Comments Yes 0 (1 standard drink = 0.6 oz pure alcoho l) rare Sex Assigned at Date Recorded 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 [email or web address] Goals: Add in short bursts of activity throughout you day. FOLLOW-UP: Please call [phone] to schedule your next visit in 8-10 [...] be resent by: Text to cell phone: [phone] Will anyone else be joining your video visit? No Video-Visit Details Type of service: Video Visit Video Start Time: 9:30 AM Video End Time:10:30 AM Originating Location (pt. Location): Home Distant Location (provider location): [facility] [place] Platform used for Video Visit: [facility] Medical Weight Management Consult PATIENT: Marnie [...] NUTRITION REFERRAL PROGRAM OVERVIEW Reviewed options at [facility] including provider visits, teleprinter installer, 24 week healthylifestyle program, health coaching, food supplements, Get Moving program, and psychological support.All questions about weight loss program were answered. SURGICAL WEIGHT LOSS Option presented given pt BMI and current comorbid conditions. Website for bariatric online information session provided. Pt will review at home and we will discuss at our follow up visit. [email or web address] MEDICATIONS: We discussed healthy habits to assist [...] throughout you day. Follow up: Please call [phone] to schedule your next visit in 8-10 [...] food do you typically eat? Cup of iraqi yogurt with blueberries and suger free jellos,angerine [...] Once a Week Eat fast food (like [employer], [employer], benchee). Never Eat at a buffet or sit-down [...] hours Using T:Connect: Yes Dexcom Sharing Code: [id number] ??? 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 MANAGER documented as of this encounter Care Teams Plush Dresser Relationship Specialty Start Date End Date Tony Ackerman PCP - General Family Medicine 05/26/20 [facility] [address] [place] [address] State Tested Nursing Assistant Dietitian, Registered 05/25/18 [facility] [place] [address] Naveen Casiano MD Assigned PCP 11/16/20 [address] [place], [place] [phone] Mikki Blevins MD MD Endocrinology, 05/07/21 [address] [facility] Diabetes, and [place], [place] Metabolism [address] Mikki Blevins MD Assigned Endocrinology 08/02/21 [facility] [place] [address] documented as of this encounter
--- OUTSIDE RECORDS SUMMARY | 2022-03-01 14:57 | XMS_ITS | Encounter Summary ---
:1965 Author Organization [place] Address [address] [facility] [place] [address] Care Team Providers Name Role Phone Jocelyn Davidson RENATA Unavailable Nikita Gamble Primary Care Provider Naveen Casiano MD Unavailable Mikki Blevins MD Unavailable Mikki Blevins MD Unavailable Mindi Llanes PA-C Unavailable [phone] Reason for Visit Reason Onset Date Comments Prior Auth - Medication 02/09/2022 phentermine (JONATHAN PEX-P) 37.5 MG tablet - EPA DENIED Encounter Details Date Type Department Care Team Description 02/09/2022 Telephone [facility] Mindi Llanes [facility] Surgical Weight Loss Leah Macias (phentermine (ADIPEX-P) Clinic [place] [address] [facility] 37.5 MG tablet - EPA [address] [facility] [address] DENIED) [place] [address] [place] [address] [place] [id number] [phone] Social History Tobacco Use Types Packs/Day Years Used Date Smoking Tobacco: Never Smokeless Tobacco: Never Alcohol Use Standard Drinks/Week Comments Yes 0 (1 standard drink = 0.6 oz pure alcoho l) rare Sex Assigned at Date Recorded 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 PRIOR AUTHORIZATION DENIED Medication: phentermine (ADIPEX-P) 37.5 MG tablet - EPA DENIED Denial Date: 02/09/2022 Denial Rational: Appeal Information: SCAN TECH documented in this encounter Plan of Treatment Not on filedocumented as of this encounter Visit Diagnoses Not on filedocumented in this encounter Additional Health Concerns Assessment Noted Time PHQ-9 Depression Total Score: 0 02/26/2020 1:30 PM CAT SCAN TECH documented as of this encounter Care Teams Blow Machine Tender Starch Spraying Relationship Specialty Start Date End Date Nikita Gamble PCP - General Family Medicine 05/26/[address] Dental Laboratory Assistant Dietitian, Registered 05/25/18 [facility] [address] [place] [address] [place] [address] Naveen Casiano MD Assigned PCP 11/16/20 [address] [place], [place] [phone] Mikki Blevins MD MD Endocrinology, 05/07/21 [address] [facility] Diabetes, and [place], [place] Metabolism [address] Mikki Blevins MD Assigned Endocrinology 08/02/21 [facility] [place], [place] [phone] Mindi Llanes Assigned Surgical 09/26/21 PRETTY Macias Provider [id number] [place] [address] documented as of this encounter
--- OUTSIDE RECORDS SUMMARY | 2022-03-01 14:57 | XMS_ITS | Encounter Summary ---
:1965 Author Organization [place] Address [address] [facility] [address] Care Team Providers Name Role Phone Jocelyn Davidson RENATA Unavailable Nikita Gamble Primary Care Provider Naveen Casiano MD Unavailable Harlan Lin MD Unavailable Unavailable Encounter Details Date Type Department Care Team Description 01/03/2021 Lab [facility] Naveen Casiano MD [facility] [address] [facility] osteoarthritis of left knee [address] [place] [phone] Social History Tobacco Use Types Packs/Day Years Used Date Smoking Tobacco: Never Smokeless Tobacco: Never Alcohol Use Standard Drinks/Week Comments Yes 0 (1 standard drink = 0.6 oz pure alcoho l) rare Sex Assigned at Date Recorded 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 A dditional information about this [...] Code Phon e Number [facility] [place] [phone] Diag. Lab [address] [facility], Room [address]297 [facility] Infectious [place], [place] [phone] Diseases Diagnostic [id number], [facility] Lab (IDDL) [address] [facility], Room D297 documented in this encounter Visit Diagnoses Diagnosis Post-traumatic osteoarthritis of left kn ee Secondary localized osteoarthrosis, lowe r leg documented in this encounter Additional Health Concerns Assessment Noted Time PHQ-9 Depression Total Score: 0 02/26/2020 1:30 PM BRAND PLANNER documented as of this encounter Care Teams Dump Truck Operator Relationship Specialty Start Date End Date Nikita Gamble PCP - General Family Medicine 05/26/20 [facility] [address] [place] [address] Delivery Table Operator Dietitian, Registered 05/25/18 [facility] [address] [place] [address] [address] [place] [id number] Naveen Casiano MD Assigned PCP 11/16/20 [address] [place], [place] [phone] Harlan Lin Assigned Endocrinology 12/07/20 08/01/21 MD [facility] Provider NO INFO AVAILABLE documented as of this encounter
--- OUTSIDE RECORDS SUMMARY | 2022-03-01 14:57 | XMS_ITS | Encounter Summary ---
:1965 Author Organization [place] Address [facility] [place] [address] Care Team Providers Name Role Phone Jocelyn Davidson RENATA Unavailable Nikita Gamble Primary Care Provider Naveen Casiano MD Unavailable Harlan Lin MD Unavailable Unavailable Mikki Blevins MD Unavailable Reason for Visit Reason Comments Medication Refill Encounter Details Date Type Department Care Team Description 06/27/2021 Refill [facility] Naveed Lin [place] [address] [facility] [place] [address] Social History Tobacco Use Types Packs/Day Years Used Date Smoking Tobacco: Never Smokeless Tobacco: Never Alcohol Use Standard Drinks/Week Comments Yes 0 (1 standard drink = 0.6 oz pure alcoho l) rare Sex Assigned at Date Recorded 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 documented as of this encounter Miscellaneous Notes [...] Total Score: 0 02/26/2020 1:30 PM DIRECTOR MEDICAL AFFAIRS documented as of this encounter Care Teams Legal Executive Relationship Specialty Start Date End Date Nikita Gamble PCP - General Family Medicine 05/26/20 [facility] [address] [place] [address] Motor And Generator Brush Maker Dietitian, Registered 05/25/[address] [place] [address] Naveen Casiano MD Assigned PCP 11/16/20 [address] [place], [place] [phone] Harlan Lin Assigned Endocrinology 12/07/20 08/01/21 MD Bassam Provider NO INFO AVAILABLE Mikki Blevins MD MD Endocrinology, 05/07/21 909 [facility] Diabetes, and [place], [place] Metabolism [address] documented as of this encounter
--- OUTSIDE RECORDS SUMMARY | 2022-03-01 14:57 | XMS_ITS | Encounter Summary ---
:1965 Author Organization [place] Address [address] [facility] [place] [address] Care Team Providers Name Role Phone Jocelyn Davidson REANTA Unavailable Nikita Gamble Primary Care Provider Naveen Casiano MD Unavailable Mikki Blevins MD Unavailable Mikki Blevins MD Unavailable Mindi Llanes PA-C Unavailable [phone] Reason for Visit Reason Onset Date Comments No Show No Show 10/20/2021 Encounter Details Date Type Department Care Team Description 10/20/2021 Virtual Visit [facility] Mikki Blevins MD No-show for Specialty Clinic [place] [facility] ent (Primary [place] [facility] Dx) [address] 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 documented as of this encounter Progress Notes [...] Depression Total Score: 0 02/26/2020 1:30 PM EXTRUSION DIE TEMPLATE MAKER documented as of this encounter Care Teams Shuttler Car Relationship Specialty Start Date End Date Nikita Gamble PCP - General Family Medicine 05/26/20 [facility] [address] [place] [address] Business Banker Dietitian, Registered 05/25/[address] [place] [address] Naveen Casiano MD Assigned PCP 11/16/20 [address] [place] [address] Mikki Blevins MD MD Endocrinology, 05/07/21 909 [facility] Diabetes, and [place], [place] Metabolism [address] Mikki Blevins MD Assigned Endocrinology 08/02/21 [facility] [place] [address] Mindi Llanes Assigned Surgical 09/26/21 PRETTY Macias Provider [address] [facility] [address] [place], [place] [address] documented as of this encounter
--- OUTSIDE RECORDS SUMMARY | 2022-03-01 14:57 | XMS_ITS | Encounter Summary ---
:1965 Author Organization [place] Address [address] [place] [address] Care Team Providers Name Role Phone Jocelyn Davidson RENATA Unavailable Nikita Gamble Primary Care Provider Naveen Casiano MD Unavailable Mikki Blevins MD Unavailable Mikki Blevins MD Unavailable Mindi Llanes PA-C Unavailable Reason for Visit Reason Onset Date Comments No Show 12/29/2021 Encounter Details Date Type Department Care Team Description 12/29/2021 Virtual Visit [facility] Mikki Blevins MD No-show for Specialty Clinic [facility] appointm ent (Primary [place] [facility] Dx) [address] [facility] [address] [address] [place] [address] [phone] Social History Tobacco Use Types Packs/Day Years Used Date Smoking Tobacco: Never Smokeless Tobacco: Never Alcohol Use Standard Drinks/Week Comments Yes 0 (1 standard drink = 0.6 oz pure alcoho l) rare Sex Assigned at Date Recorded Female 03/04/2020 12:33 PM RISK CONSULTANT documented as of this encounter Progress [...] Depression Total Score: 0 02/26/2020 1:30 PM RISK CONSULTANT documented as of this encounter Care Teams Physician Industrial Relationship Specialty Start Date End Date Nikita Gamble PCP - General Family Medicine 05/26/20 [facility] [address] [place] [address] Fretted Instrument Maker Hand Dietitian, Registered 05/25/[address] [place] [address] Naveen Casiano MD Assigned PCP 11/16/20 [address] [place] [address] Mikki Blevins MD MD Endocrinology, 05/07/[address] [place] [address] Diabetes, and [place], [place] Metabolism [phone] Mikki Blevins MD Assigned Endocrinology 08/02/21 [facility] [place] [address] Mindi Llanes Assigned Surgical 09/26/21 PRETTY Macias Provider [address] [facility] [address] [place] [address] documented as of this encounter
--- OUTSIDE RECORDS SUMMARY | 2022-03-01 14:58 | XMS_ITS | Encounter Summary ---
:1965 Author Organization [place] Address [facility], [address] [facility] [place] [address] Care Team Providers Name Role Phone Jocelyn Davidson Bran YANEZ Unavailable Nikita Gamble Primary Care Provider Naveen Casiano MD Unavailable Encounter Details Date Type Department Care Team Description 12/02/2020 Lab [facility] Type 1 diabetes mellitus (H) [facility] [address] [place] [address] [phone] Social History Tobacco Use Types Packs/Day Years Used Date Smoking Tobacco: Never Smokeless Tobacco: Never Alcohol Use Standard Drinks/Week Comments Yes 0 (1 standard drink = 0.6 oz pure alcoho l) rare Sex Assigned at Date Recorded Female 03/04/2020 12:33 PM DIVIDEND DEPOSIT ENTRY CLERK COVID-19 Exposure Response Date Recorded [...] City/State/ZIP Code Phon [place] [address] [phone] [facility] [address] [facility] (no room number, 1st floor of clinic) [facility] [place], [place] [phone] [facility] [address] Lab [address] [facility] (no room number, 1st floor of clinic) documented in this encounter Visit Diagnoses Diagnosis Type 1 diabetes mellitus (H) Type I (juvenile type) diabetes mellitus without mention of complication, not stated as uncontrolled documented in this encounter Additional Health Concerns Assessment Noted Time PHQ-9 Depression Total Score: 0 02/26/2020 1:30 PM DIVIDEND DEPOSIT ENTRY CLERK documented as of this encounter Care Teams Cobol Programmer Relationship Specialty Start Date End Date Nikita Gamble PCP - General Family Medicine 05/26/20 [facility] [address] [place] [address] Burning Machine Operator Dietitian, Registered 05/25/18 [facility] [place] [address] Naveen Casiano MD Assigned PCP 11/16/20 [address] [place] [address] documented as of this encounter
--- OUTSIDE RECORDS SUMMARY | 2022-03-01 14:58 | XMS_ITS | Encounter Summary ---
:1965 Author Organization [place] Address [address] [facility] [place] [address] Care Team Providers Name Role Phone Annette Alvarezmamadou ALVAREZ RESTORATION SILVERSMITH Unavailable Jocelyn Davidson RD Unavailable Tamar Murphy APRN RESTORATION SILVERSMITH Unavailable Nikita Gamble Primary Care Provider Reason for Visit Reason Onset Date Comments Hypoglycemia 07/28/2020 Encounter Details Date Type Department Care Team Description 07/28/2020 Telephone [facility] Tamar Murphy APRN Hypoglycemia [place] [phone] [place] [address] (Wo rk) Social History Tobacco Use Types Packs/Day Years Used Date Smoking Tobacco: Never Smokeless Tobacco: Never Alcohol Use Standard Drinks/Week Comments Yes 0 (1 standard drink = 0.6 oz pure alcoho l) rare Sex Assigned at Date Recorded Female 03/04/2020 12:33 PM HAZARDOUS WASTE TECHNICIAN documented as of this encounter Miscellaneous Notes Telephone Encounter - Tamar Murphy APRN RESTORATION SILVERSMITH - 07/28/2020 5:57 PM CDT Responded to staff request as MAURICE concerned for low blood sugar. Patient with repeated wording and inconsistent with conversation. Patient's CGM checked and was at 70. Patient given personal glucose drink, Mt Dew, and glucose drinkfrom lab of 150 mg of glucose. radiology technologist called to room to check glucose and [...] strong recommendations against it. Tamar Murphy APRN RESTORATION SILVERSMITH on 07/28/2020 at 6:04 PM documented in this encounter Plan of Treatment Not on filedocumented as of this encounter Visit Diagnoses Not on filedocumented in this encounter Additional Health Concerns Assessment Noted Time PHQ-9 Depression Total Score: 0 02/26/2020 1:30 PM HAZARDOUS WASTE TECHNICIAN documented as of this encounter Care Teams Accountant Systems Relationship Specialty Start Date End Date Nikita Gamble PCP - General Family Medicine 05/26/20 [facility] [address] [place] [address] Annette Alvarez, Nurse Practitioner Clinical Nurse 03/22/17 10/21/20 MECHANICAL SERVICE TECHNICIAN RESTORATION SILVERSMITH Specialist [address] [place] [address] Security Officer Dietitian, Registered 05/25/[address] [place] [address] Tamar Murphy APRN Assigned PCP 02/08/2011/15/ 1 [facility] [address] [place], [place] [phone] documented as of this encounter
--- OUTSIDE RECORDS SUMMARY | 2022-03-01 14:58 | XMS_ITS | Encounter Summary ---
:1965 Author Organization [place] Address [address] [facility] [place] [address] Care Team Providers Name Role Phone Jocelyn Davidson Bran YANEZ Unavailable Nikita Gamble Primary Care Provider Naveen Casiano MD Unavailable Harlan Lin MD Unavailable Unavailable Reason for Visit Reason Comments Medication Refill Encounter Details Date Type Department Care Team Description 12/10/2020 Refill [facility] Annette Alvarez, Medication Refill [phone] [place] [address] (Wo rk) Social History Tobacco Use Types Packs/Day Years Used Date Smoking Tobacco: Never Smokeless Tobacco: Never Alcohol Use Standard Drinks/Week Comments Yes 0 (1 standard drink = 0.6 oz pure alcoho l) rare Sex Assigned at Date Recorded Female 03/04/2020 12:33 PM LIME VAT TENDER COVID-19 Exposure Response Date Recorded In [...] the [facility] refill protocol STEPHANIE Guidry, RN [facility] documented in this encounter Plan of Treatment Not on filedocumented as of this encounter Visit Diagnoses Diagnosis Type 1 diabetes mellitus with stage 3a c hronic kidney disease (H) - Primary documented in this encounter Additional Health Concerns Assessment Noted Time PHQ-9 Depression Total Score: 0 02/26/2020 1:30 PM LIME VAT TENDER documented as of this encounter Care Teams Space Scheduler Relationship Specialty Start Date End Date Nikita Gamble PCP - General Family Medicine 05/26/20 [facility] [address] [place] [address] [employer] Dietitian, Registered 05/25/18 [facility] [address] [place] [address] [place] [address] Naveen Casiano MD Assigned PCP 11/16/20 [address] [place], [place] [phone] Harlan Lin Assigned Endocrinology 12/07/20 08/01/21 MD Bassam Provider NO INFO AVAILABLE documented as of this encounter
--- OUTSIDE RECORDS SUMMARY | 2022-03-01 14:58 | XMS_ITS | Encounter Summary ---
:1965 Author Organization [place] Address [address] [place] [address]. [place] [address] Care Team Providers Name Role Phone Annette Alvarez MANNEQUIN MAKER DIRECTOR OF QUALITY CONTROL Unavailable Goran Lloyd Primary Care Provider Jocelyn Davidson RD Unavailable Tamar Murphy MANNEQUIN MAKER DIRECTOR OF QUALITY CONTROL Unavailable Encounter Details Date Type Department Care Team Description 03/05/2020 Travel Social History Tobacco Use Types Packs/Day Years Used Date Smoking Tobacco: Never Smokeless Tobacco: Never Alcohol Use Standard Drinks/Week Comments Yes 0 (1 standard drink = 0.6 oz pure alcoho l) rare Sex Assigned at Date Recorded Female 03/04/2020 12:33 PM INTERNAL AUDIT MANAGER COVID-19 Exposure Response Date Recorded In the last month, have you been in contact with No / Unsure 03/05/2020 11:41 AM INTERNAL AUDIT MANAGER someone who was confirmed or suspected to have Coronavirus / COVID-19? documented as of this encounter Plan of Treatment Not on filedocumented as of this encounter Visit Diagnoses Not on filedocumented in this encounter Additional Health Concerns Assessment Noted Time PHQ-9 Depression Total Score: 0 02/26/2020 1:30 PM INTERNAL AUDIT MANAGER documented as of this encounter Care Teams Consulting Services Associate Relationship Specialty Start Date End Date Goran Lloyd PCP - General Family Practice 12/29/17 05/21/[address] [address] Annette Alvarez, Nurse Practitioner Clinical Nurse 03/22/17 10/21/20 MANNEQUIN MAKER DIRECTOR OF QUALITY CONTROL Specialist [address] [place] [address] Net Software Developer Dietitian, Registered 05/25/18 JET [place] [facility] [address] [place] [id number] Tamar Murphy, MANNEQUIN MAKER Assigned PCP 02/08/20 1 DIRECTOR OF QUALITY CONTROL [address] [place], [place] [phone] documented as of this encounter
--- OUTSIDE RECORDS SUMMARY | 2022-03-01 14:58 | XMS_ITS | Encounter Summary ---
:1965 Author Organization [place] Address [facility] [place] [address] Care Team Providers Name Role Phone Annette Alvarez KIM MANAGER VISUAL Unavailable [phone] Unavailable Tamar Murphy APRN MANAGER VISUAL Unavailable Nikita Gamble Primary Care Provider Reason for Referral Diagnostic Imaging XR (Routine) - Closed Specialty Diagnoses / Procedures Referred By Contact Refer red To Contact Diagnoses Positive QuantiFERON-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 Mj Tenorio MD Procedures XR Chest 1 View, [facility] [address] [place], [place] [id number] 4 Referral ID Status Reason Start Date Expiration Date Visits Requ ested Visits Authorized [id number] Closed 10/15/2020 10/15/2021 1 1 Reason for Visit Diagnostic Imaging XR (Routine) - Closed Specialty Diagnoses / Procedures Referred By Contact Refer red To Contact Diagnoses Positive QuantiFERON-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 Mj Tenorio MD Procedures XR Chest 1 View, [employer] [place] [id number] 4 Referral ID Status Reason Start Date Expiration Date Visits Requ ested Visits Authorized [id number] Closed 10/15/2020 10/15/2021 1 1 Encounter Details Date Type Department Care Team Description 10/15/2020 Hospital Encounter [facility] Mj Tenorio Positive [facility] MD Olegario QuantiFERON-TB Gold [address] test [facility] 213 [address] [place], [place] [phone] Social History Tobacco Use Types Packs/Day Years Used Date Smoking Tobacco: Never Smokeless Tobacco: Never Alcohol Use Standard Drinks/Week Comments Yes 0 (1 standard drink = 0.6 oz pure alcoho l) rare Sex Assigned at Date Recorded Female 03/04/2020 12:33 PM PHYSICS PROFESSOR COVID-19 Exposure Response Date Recorded In the [...] hours Using T:Connect: Yes Dexcom Sharing Code: [id number] insulin syringe-needle Use 1 syringe as 20 [...] this encounter Results XR Chest 1 View, [facility] (10/15/2020 9:33 AM CDT) Anatomical Region Laterality [...] Depression Total Score: 0 02/26/2020 1:30 PM PHYSICS PROFESSOR documented as of this encounter Care Teams Chief Growth Officer Relationship Specialty Start Date End Date Nikita Gamble PCP - General Family Medicine 05/26/20 [facility] [address] [place] [address] Annette Alvarez, Nurse Practitioner Clinical Nurse 03/22/17 10/21/20 BOOK SALESMAN MANAGER VISUAL Specialist [address] [place], [place] [phone] Jocelyn Davidson [address] Brazer Controlled Atmospheric Furnace Dietitian, Registered 05/25/18 [facility] [place] [address] Tamar Murphy APRN Assigned PCP 02/08/20 1 MANAGER VISUAL [address] [place], [place] [phone] documented as of this encounter
--- OUTSIDE RECORDS SUMMARY | 2022-03-01 14:58 | XMS_ITS | Encounter Summary ---
:1965 Author Organization [place] Address [facility] [place] [address] Care Team Providers Name Role Phone Jocelyn [...] Date Recorded Female 03/04/2020 12:33 PM CLINICAL OPERATIONS LEADER COVID-19 Exposure Response Date Recorded In [...] Depression Total Score: 0 02/26/2020 1:30 PM CLINICAL OPERATIONS LEADER documented as of this encounter Care Teams Coal Shooter Relationship Specialty Start Date End Date Nikita Gamble PCP - General Family Medicine 05/26/20 [facility] [address] [place] [address] Meat Grading Machine Operator Dietitian, Registered 05/25/18 [facility] [place] [address] Naveen Casiano MD Assigned PCP 11/16/20 [address] [place] [address] documented as of this encounter
--- OUTSIDE RECORDS SUMMARY | 2022-03-01 14:58 | XMS_ITS | Encounter Summary ---
:1965 Author Organization [place] Address [facility] [place] [address] Care Team Providers Name Role Phone Annette Alvarez KIM GORE INSERTER Unavailable Jocelyn Davidson RD Unavailable Tamar Murphy APRN GORE INSERTER Unavailable Nikita Gamble Primary Care Provider Encounter Details Date Type Department Care Team Description 10/15/2020 Travel Social History Tobacco Use Types Packs/Day Years Used Date Smoking Tobacco: Never Smokeless Tobacco: Never Alcohol Use Standard Drinks/Week Comments Yes 0 (1 standard drink = 0.6 oz pure alcoho l) rare Sex Assigned at Date Recorded Female 03/04/2020 12:33 PM REGISTERED RADIATION THERAPIST COVID-19 Exposure Response Date Recorded In the [...] Depression Total Score: 0 02/26/2020 1:30 PM REGISTERED RADIATION THERAPIST documented as of this encounter Care Teams Roving Department Supervisor Relationship Specialty Start Date End Date Nikita Gamble PCP - General Family Medicine 05/26/[address] [phone] Annette Alvarez, Nurse Practitioner Clinical Nurse 03/22/17 10/21/20 ANALYST SALES GORE INSERTER Specialist [address] [place] [address] Assembler Dry Cell And Battery Dietitian, Registered 05/25/18 [facility] [address] [place] [address] [place] [id number] Tamar Murphy, ANALYST SALES Assigned PCP 02/08/20 1 GORE INSERTER [address] [place], [place] [phone] documented as of this encounter
--- OUTSIDE RECORDS SUMMARY | 2022-03-01 14:58 | XMS_ITS | Encounter Summary ---
:1965 Author Organization [place] Address [address] [facility] [address] Care Team Providers Name Role Phone Jocelyn Davidson RENATA Unavailable Tamar Murphy APRN SOFTWARE REQUIREMENTS ENGINEER Unavailable Nikita Gamble Primary Care Provider Reason for Visit Reason Comments Headache Encounter Details Date Type Department Care Team Description 11/06/2020 Office Visit [facility] Naveen Casiano, Migrain e with status Clinic [place] migrainosus, [address] intractable, [place], [place] unspeci fied migraine [id number] type (Primary Dx) [phone] Social History Tobacco Use Types Packs/Day Years Used Date Smoking Tobacco: Never Smokeless Tobacco: Never Alcohol Use Standard Drinks/Week Comments Yes 0 (1 standard drink = 0.6 oz pure alcoho l) rare Sex Assigned at Date Recorded Female 03/04/2020 12:33 PM WELDER HELPER COVID-19 Exposure Response Date Recorded In [...] - documented in this encounter Progress Notes Vannsea Dennison MA - 11/06/2020 4:35 PM CDT [...] Depression Total Score: 0 02/26/2020 1:30 PM WELDER HELPER documented as of this encounter Care Teams Real Estate Legal Assistant Relationship Specialty Start Date End Date Nikita Gamble PCP - General Family Medicine 05/26/20 [facility] [address] [place] [address] Employment Security Officer Dietitian, Registered 05/25/18 [facility] [place] [address] Tamar Murphy APRN SOFTWARE REQUIREMENTS ENGINEER Assigned PCP 02/08/20 11/15/20 [address] [place] [address] documented as of this encounter
--- OUTSIDE RECORDS SUMMARY | 2022-03-01 14:58 | XMS_ITS | Encounter Summary ---
:1965 Author Organization [place] Address [address] [facility] [place] [address] Care Team Providers Name Role Phone StuartJocelyn [...] Expiration Date Visits Requ ested Visits Authorized [id number] Closed 12/03/2020 12/03/2021 1 1 Scheduling Instructions Jocelyn Davidson please. Reason for Visit Reason Comments Establish Care Diabetes Encounter Details Date Type Department Care Team Description 12/03/2020 Virtual Visit [facility] Harlan Lin Type 1 diabetes mellitus with stage 3a chronic kidney disease (H) (Primary Dx); Clinic Kenny Banegas MD 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; [address] [place] [address] NO INFO Insulin pump in place NE AVAILABLE SHARAN Cox [phone] Social History Tobacco Use Types Packs/Day Years Used Date Smoking Tobacco: Never Smokeless Tobacco: Never Tobacco Cessation: Counseling Given: No Alcohol Use Standard Drinks/Week Comments Yes 0 (1 standard drink = 0.6 oz pure alcoho l) rare Sex Assigned at Date Recorded Female 03/04/2020 12:33 PM CRATING AND MOVING ESTIMATOR COVID-19 Exposure Response Date Recorded In the [...] today. The email she has for her [employer] account is listed as not being found. Remarks on prior issues with lows that resolved with lowering basal rates but has also taken to having scheduled snacks. She does not give insulin for these snacks. Notes she is having highs after her afternoon snack at 1545. Also having highs at [phone]. Dinner is [phone]. ROS: 10 point ROS neg other than [...] DM. 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 Exam: GENERAL: Healthy, alert and no distress [...] Location): Other office Distant Location (provider location): [facility] Platform used for Video Visit: [employer] Harlan Lin MD on 12/03/2020 at 11:31 [...] LAB - BLOOD ORDERABLES Performing Organization Address City/[facility]/ZIP Code Phon e Number CR LABORATORY [facility] [place] [address] [place] [facility] [address] [facility] Lab (no room number, 1st floor of clinic) CR LABORATORY [place], [place] [phone] [facility] [address], [facility] Lab [address] [facility] Lab (no room number, 1st [...] LAB - URINE ORDERABLES Performing Organization Address City/[facility]/ZIP Code Phon e Number OX LABORATORY [place], [place] [phone] [facility] [address] [place] [address] Lab (no room number, 1st floor of clinic) O[facility] LAB[facility]ATORY [place], [place] [phone] [facility] [address] [address] Lab (no room number, 1st floor [...] City/State/ZIP Code Phon e Number OX LABORATORY [facility] [place], [place] [phone] [facility] [address] [place] [address] Lab (no room number, 1st floor of clinic) [facility]AT[facility] [place], [place] [phone] [facility] [place] [address], [facility] [address] Lab (no room number, 1st floor of clinic) (ABNORMAL) BASIC METABOLIC PANEL (01/05/2021 3:03 PM CDT) [facility] gist Method Time Signature Sodium 134 133 [...] City/State/ZIP Code Phon e Number OX LABORATORY [facility] [place], [place] [phone] [facility] [address] Lab (no room number, 1st floor of clinic) [facility] [place], [place] [phone] [facility] [facility] [address] Lab (no room number, 1st floor [...] City/State/ZIP Code Phon e Number OX LABORATORY [place], [place] [phone] [facility] [address] [place] [address] Lab (no room number, 1st floor of clinic) O[facility] LAB[facility]ATORY [place], [place] [phone] [facility] [address] Lab (no room number, 1st floor of clinic) documented in this encounter Visit Diagnoses Diagnosis Type 1 diabetes mellitus with stage 3a c hronic kidney disease (H) - Primary 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 Insulin pump in place Insulin pump status documented in this encounter Additional Health Concerns Assessment Noted Time PHQ-9 Depression Total Score: 0 02/26/2020 1:30 PM CRATING AND MOVING ESTIMATOR documented as of this encounter Care Teams Manager Presentation Relationship Specialty Start Date End Date Nikita Gamble PCP - General Family Medicine 05/26/20 [facility] [address] [place] [address] Densitometer Reader Dietitian, Registered 05/25/18 [facility] [address] [place] [address] SHARAN CARSON [address] Naveen Casiano MD Assigned PCP 11/16/20 [address] [place] [address] documented as of this encounter
--- OUTSIDE RECORDS SUMMARY | 2022-03-01 14:58 | XMS_ITS | Encounter Summary ---
:1965 Author Organization [place] Address [address] [facility] [place] [address] Care Team Providers Name Role Phone Annette Alvarez KIM WATER SOFTENER SERVICER AND INSTALLER Unavailable Jocelyn Davidson RD Unavailable Tamar Murphy APRN WATER SOFTENER SERVICER AND INSTALLER Unavailable Nikita Gamble Primary Care Provider Reason for Visit Reason Onset Date Comments Panel Management 06/26/2020 Encounter Details Date Type Department Care Team Description 06/26/2020 [facility] Tamar Murphy APRN Panel Management [facility] [address] [address] [phone] (Wo rk) Social History Tobacco Use Types Packs/Day Years Used Date Smoking Tobacco: Never Smokeless Tobacco: Never Alcohol Use Standard Drinks/Week Comments Yes 0 (1 standard drink = 0.6 oz pure alcoho l) rare Sex Assigned at Date Recorded Female 03/04/2020 12:33 PM GANG MINER documented as of this encounter Miscellaneous Notes [...] Depression Total Score: 0 02/26/2020 1:30 PM GANG MINER documented as of this encounter Care Teams Sap Developer Relationship Specialty Start Date End Date Nikita Gamble PCP - General Family Medicine 05/26/20 [facility] [address] [place] [address] Annette Alvarez, Nurse Practitioner Clinical Nurse 03/22/17 10/21/20 SPLICING MACHINE OPERATOR WATER SOFTENER SERVICER AND INSTALLER Specialist [address] [place], [place] [phone] Jocelyn Davidson RD Corrections Lieutenant Dietitian, Registered 05/25/18 [facility] [address] [place] [address] [place] [address] Tamar Murphy APRN Assigned PCP 02/08/20 1 WATER SOFTENER SERVICER AND INSTALLER [address] [place] [address] documented as of this encounter
--- OUTSIDE RECORDS SUMMARY | 2022-03-01 14:58 | XMS_ITS | Encounter Summary ---
:1965 Author Organization [place] Address [address] [facility] [place] [address] Care Team Providers Name Role Phone Annette Alvarez Mabel ALVAREZ CAR SERVICER Unavailable Jocelyn Davidson RD Unavailable Tamar Murphy APRN CAR SERVICER Unavailable Nikita Gamble Primary Care Provider Reason for Visit Reason Onset Date Comments Diabetes Education 05/22/2020 scheduling outreach Encounter Details Date Type Department Care Team Description 05/22/2020 Telephone [facility] Annette Nuñez Diabetes E ducation Clinic [place] KIM Monroe CAR SERVICER (scheduling outreach) [address] [facility] [phone] [place] [phone] Social History Tobacco Use Types Packs/Day Years Used Date Smoking Tobacco: Never Smokeless Tobacco: Never Alcohol Use Standard Drinks/Week Comments Yes 0 (1 standard drink = 0.6 oz pure alcoho l) rare Sex Assigned at Date Recorded Female 03/04/2020 12:33 PM MANAGER EMS documented as of this encounter Miscellaneous Notes Telephone Encounter - Trinidad Thomas - 05/22/2020 3:21 PM CST Diabetes Education Scheduling Outreach #1: Call to patient to schedule. Left message with phone number to call to schedule. Plan for 2nd outreach attempt within 1 week. Trinidad Adkins [facility] Scheduling GER EMS documented in this encounter Plan of Treatment Not on filedocumented as of this encounter Visit Diagnoses Not on filedocumented in this encounter Additional Health Concerns Assessment Noted Time PHQ-9 Depression Total Score: 0 02/26/2020 1:30 PM MANAGER EMS documented as of this encounter Care Teams Design Engineer Relationship Specialty Start Date End Date Nikita Gamble PCP - General Family Medicine 05/26/20 [facility] [address] [place] [address] Annette Alvarez, Nurse Practitioner Clinical Nurse 03/22/17 10/21/20 OPTO MECHANICAL ENGINEER CAR SERVICER Specialist [address] [place], [place] [phone] Jocelyn Davidson RD [place] Dietitian, Registered 05/25/18 [facility] [place] [address] Tamar Murphy APRN Assigned PCP 02/08/20 1 CAR SERVICER [address] [place] [address] documented as of this encounter
--- OUTSIDE RECORDS SUMMARY | 2022-03-01 14:58 | XMS_ITS | Encounter Summary ---
:1965 Author Organization [place] Address 24[address] [facility] [place] [address] Care Team Providers Name Role Phone Annette Alvarez KIM TAPE MAKING MACHINE OPERATOR Unavailable Jocelyn Davidson RD Unavailable Tamar Murphy APRN TAPE MAKING MACHINE OPERATOR Unavailable Nikita Gamble Primary Care Provider Encounter Details Date Type Department Care Team Description 09/04/2020 Virtual Visit [facility] Kalpesh Salmon, Back muscle spasm Clinic [place] PRETTY (Primary Dx) [address] [place] [address] [phone] Social History Tobacco Use Types Packs/Day Years Used Date Smoking Tobacco: Never Smokeless Tobacco: Never Alcohol Use Standard Drinks/Week Comments Yes 0 (1 standard drink = 0.6 oz pure alcoho l) rare Sex Assigned at Date Recorded Female 03/04/2020 12:33 PM 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 Kalpesh Salmon PA-C [facility] PRATIBHA Dye is a 55 [...] Depression Total Score: 0 02/26/2020 1:30 PM FIREBOAT OPERATOR documented as of this encounter Care Teams Fire Loss Prevention Engineer Relationship Specialty Start Date End Date Nikita Gamble PCP - General Family Medicine 05/26/20 [facility] [address] [place] [address] Annette Alvarez, Nurse Practitioner Clinical Nurse 03/22/17 10/21/20 BLOW TORCH OPERATOR TAPE MAKING MACHINE OPERATOR Specialist [address] [place], [place] [phone] Jocelyn Davidson RD Senior Property Manager Dietitian, Registered 05/25/18 [facility] [place] [address] Tamar Murphy APRN Assigned PCP 02/08/20 1 TAPE MAKING MACHINE OPERATOR [address] [place], [place] [phone] documented as of this encounter
--- OUTSIDE RECORDS SUMMARY | 2022-03-01 14:58 | XMS_ITS | Encounter Summary ---
:1965 Author Organization [place] Address [address] [facility] [place] [address] Care Team Providers Name Role Phone Annette Alvarez KIM CLERICAL INVESTIGATOR Unavailable [phone] Goran Lloyd Primary Care Provider Jocelyn Davidson RD Unavailable Tamar Murphy APRN CLERICAL INVESTIGATOR Unavailable Encounter Details Date Type Department Care Team Description 03/25/2020 Telephone [facility] Tamar Murphy APRN [address] [phone] [place] [address] (Wo rk) Social History Tobacco Use Types Packs/Day Years Used Date Smoking Tobacco: Never Smokeless Tobacco: Never Alcohol Use Standard Drinks/Week Comments Yes 0 (1 standard drink = 0.6 oz pure alcoho l) rare Sex Assigned at Date Recorded Female 03/04/2020 12:33 PM SHOULDER PUNCHER COVID-19 Exposure Response Date Recorded In the last month, have you been in contact with No / Unsure 03/05/2020 11:41 AM SHOULDER PUNCHER someone who was confirmed or suspected to have Coronavirus / COVID-19? documented as of this encounter Plan of Treatment Not on filedocumented as of this encounter Visit Diagnoses Not on filedocumented in this encounter Additional Health Concerns Assessment Noted Time PHQ-9 Depression Total Score: 0 02/26/2020 1:30 PM SHOULDER PUNCHER documented as of this encounter Care Teams Communications Analyst Relationship Specialty Start Date End Date Goran Lloyd PCP - General Family Practice 12/29/17 05/21/[address] [address] Annette Alvarez, Nurse Practitioner Clinical Nurse 03/22/17 10/21/20 ASSISTANT WOMEN'S SOCCER COACH CLERICAL INVESTIGATOR Specialist [address] [place], [place] [phone] Jocelyn Davidson RD Manufacturing Engineer Dietitian, Registered 05/25/[address] [facility] [address] [place] [address] [place] [address] Tamar Murphy APRN Assigned PCP 02/08/20 1 CLERICAL INVESTIGATOR [address] [place], [place] [phone] documented as of this encounter
--- OUTSIDE RECORDS SUMMARY | 2022-03-01 14:58 | XMS_ITS | Encounter Summary ---
:1965 Author Organization [place] Address [facility] [address] Care Team Providers Name Role Phone Jocelyn Davidson RD Unavailable Tamar Murphy APRN QA DEVELOPER Unavailable Nikita Gamble Primary Care Provider Encounter Details Date Type Department Care Team Description 11/06/2020 Travel Social History Tobacco Use Types Packs/Day Years Used Date Smoking Tobacco: Never Smokeless Tobacco: Never Alcohol Use Standard Drinks/Week Comments Yes 0 (1 standard drink = 0.6 oz pure alcoho l) rare Sex Assigned at Date Recorded Female 03/04/2020 12:33 PM SENIOR SPECIALIST COVID-19 Exposure Response Date Recorded In [...] Total Score: 0 02/26/2020 1:30 PM SENIOR SPECIALIST documented as of this encounter Care Teams Hazardous Materials Analyst Relationship Specialty Start Date End Date Nikita Gamble PCP - General Family Medicine 05/26/20 [facility] [address] [place] [address] Auto Leasing Manager Dietitian, Registered 05/25/18 [facility] [place] [address] Tamar Murphy APRN QA DEVELOPER Assigned PCP 02/08/20 11/15/20 [address] [place], [place] [phone] documented as of this encounter
--- OUTSIDE RECORDS SUMMARY | 2022-03-01 14:58 | XMS_ITS | Encounter Summary ---
:1965 Author Organization [place] Address [address] [facility] [place] [address] Care Team Providers Name Role Phone Jocelyn Davidson RD Unavailable Nikita Gamble Primary Care Provider Naveen Casiano MD Unavailable Harlan Lin MD Unavailable Unavailable Mikki Blevins MD Unavailable Mikki Blevins MD Unavailable Mindi Llanes PA-C Unavailable [phone] Reason for Visit Reason Onset Date Comments Diabetes Education 12/05/2020 Encounter Details Date Type Department Care Team Description 12/05/2020 Telephone [facility] Harlan Lin gail Education [place] Endocrinolog y MD Bassam [address] [facility] [place] [address] AVAILABLE [phone] Social History Tobacco Use Types Packs/Day Years Used Date Smoking Tobacco: Never Smokeless Tobacco: Never Alcohol Use Standard Drinks/Week Comments Yes 0 (1 standard drink = 0.6 oz pure alcoho l) rare Sex Assigned at Date Recorded Female 03/04/2020 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 Hernando Gray [place] [facility] Scheduling documented in this encounter Plan of Treatment Not on filedocumented as of this encounter Visit Diagnoses Not on filedocumented in this encounter Additional Health Concerns Assessment Noted Time PHQ-9 Depression Total Score: 0 02/26/2020 1:30 PM BUTCHER SCULLION documented as of this encounter Care Teams Automotive Professional Relationship Specialty Start Date End Date Nikita Gamble PCP - General Family Medicine 05/26/[address] Aviation Safety Inspector Dietitian, Registered 05/25/18 [facility] [address] [place] [address] [place] [address] Naveen Casiano MD Assigned PCP 11/16/20 [address] [place] [address] Harlan Lin Assigned Endocrinology 12/07/20 08/01/21 MD [place] Provider NO INFO AVAILABLE Mikki Blevins MD MD Endocrinology, 05/07/[address] [facility] Diabetes, and [place], [place] Metabolism [phone] Mikki Blevins MD Assigned Endocrinology 08/02/21 [facility] [place] [address] Mindi Llanes Assigned Surgical 09/26/21 [facility] [place] Provider [address] [place] [address] [address] [place] [address] documented as of this encounter
--- OUTSIDE RECORDS SUMMARY | 2022-03-01 14:58 | XMS_ITS | Encounter Summary ---
:1965 Author Organization [place] Address [address] [place] [address] Care Team Providers Name Role Phone Annette Alvarez APRN MERGERS AND ACQUISITIONS ATTORNEY Unavailable Jocelyn Davidson RD Unavailable Tamar Murphy SWITCHBOARD WIRE WORKER HELPER MERGERS AND ACQUISITIONS ATTORNEY Unavailable Nikita Gabmle Primary Care Provider Naveen Casiano MD Unavailable Harlan Lin MD Unavailable Unavailable Mikki Blevins MD Unavailable Mikki Blevins MD Unavailable Mindi Llanes PA-C Unavailable Reason for Visit Reason Comments Medication Refill Encounter Details Date Type Department Care Team Description 06/05/2020 Refill [facility] Annette Alvarez, Medication Refill Delight SWITCHBOARD WIRE WORKER HELPER MERGERS AND ACQUISITIONS ATTORNEY [id number] [place], [place] [phone] [place] [address] (Wo rk) Social History Tobacco Use Types Packs/Day Years Used Date Smoking Tobacco: Never Smokeless Tobacco: Never Alcohol Use Standard Drinks/Week Comments Yes 0 (1 standard drink = 0.6 oz pure alcoho l) rare Sex Assigned at Date Recorded Female 03/04/2020 12:33 PM INVESTIGATIONS MANAGER documented as of this encounter Miscellaneous Notes Telephone Encounter - Jasmyn Lee RN - 06/05/2020 11:52 AM CST Prescription approved per [facility] Refill Protocol. 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 documented in this encounter Additional Health Concerns Assessment Noted Time PHQ-9 Depression Total Score: 0 02/26/2020 1:30 PM INVESTIGATIONS MANAGER documented as of this encounter Care Teams Electronic Engraver Relationship Specialty Start Date End Date Nikita Gamble PCP - General Family Medicine 05/26/20 [facility] [address] [place] [address] Annette Alvarez, Nurse Practitioner Clinical Nurse 03/22/17 10/21/20 SWITCHBOARD WIRE WORKER HELPER MERGERS AND ACQUISITIONS ATTORNEY Specialist [address] [place] [address] Transmission Supervisor Dietitian, Registered 05/25/18 [facility] - [address] [place] [address] Tamar Murphy, Assigned PCP 02/08/20 11/15/20 SWITCHBOARD WIRE WORKER HELPER MERGERS AND ACQUISITIONS ATTORNEY [address] [place] [address] Naveen Casiano MD Assigned PCP 11/16/20 [address] [place], [place] [id number] Harlan Lin Assigned Endocrinology 12/07/20 08/01/21 MD [facility] Provider NO INFO AVAILABLE Mikki Blevins MD MD Endocrinology, 05/07/[address] [place] [address] Diabetes, and [place], [place] Metabolism [address] Mikki Blevins MD Assigned Endocrinology 08/02/21 [facility] Provider [facility] [place], [place] [phone] Mindi Llanes Assigned Surgical 09/26/21 [facility] Provider [address] [place] [address] documented as of this encounter
--- OUTSIDE RECORDS SUMMARY | 2022-03-01 14:58 | XMS_ITS | Encounter Summary ---
:1965 Author Organization [place] Address [facility] [place] [address] Care Team Providers Name Role Phone Jocelyn Davidson RENATA Unavailable Tamar Murphy APRN DIRECTOR MEDICAL Unavailable Nikita Gamble Primary Care Provider Reason for Visit Reason Onset Date Comments Orders 10/22/2020 labs Encounter Details Date Type Department Care Team Description 10/22/[address] 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 Pt previously seen by Dr. Annette Alvarez. Please send [email or web address] message when pt can schedule labs. Action [...] / Unknown PM CDT PM CDT Unknown Halran Lin MD LAB - BLOOD ORDERABLES Performing Organization Address City/State/ZIP Code Phon [place] [address] [phone] [facility] [address] [facility] Lab (no room number, 1st floor of clinic) [facility] [place], [place] [phone] [facility] [phone] [address] [facility] Lab (no room number, 1st floor of clinic) documented in this encounter Visit Diagnoses Diagnosis Type 1 diabetes mellitus (H) - Primary Type I (juvenile type) diabetes mellitus without mention of complication, not stated as uncontrolled documented in this encounter Additional Health Concerns Assessment Noted Time PHQ-9 Depression Total Score: 0 02/26/2020 1:30 PM FLEET TECHNICIAN documented as of this encounter Care Teams Hat Measurer Relationship Specialty Start Date End Date Nikita Gamble PCP - General Family Medicine 05/26/20 [facility] [address] [place] [address] Wood Ski Maker Dietitian, Registered 05/25/18 [facility] [place] [address] Tamar Murphy APRN DIRECTOR MEDICAL Assigned PCP 02/08/20 11/15/20 [address] [place] [address] documented as of this encounter
--- OUTSIDE RECORDS SUMMARY | 2022-03-01 14:58 | XMS_ITS | Encounter Summary ---
:1965 Author Organization [place] Address [facility] [place] [address] Care Team Providers Name Role Phone Jocelyn [...] at Date Recorded Female 03/04/2020 12:33 PM COTA COVID-19 Exposure Response Date Recorded In the [...] Depression Total Score: 0 02/26/2020 1:30 PM COTA documented as of this encounter Care Teams Meter Reader Relationship Specialty Start Date End Date Nikita Gamble PCP - General Family Medicine 05/26/20 [facility] [address] [place] [address] Sheep Farmer Dietitian, Registered 05/25/18 [facility] [place] [address] Naveen Casiano MD Assigned PCP 11/16/20 [address] [place] [address] documented as of this encounter
--- OUTSIDE RECORDS SUMMARY | 2022-03-01 14:58 | XMS_ITS | Encounter Summary ---
:1965 Author Organization [place] Address [address] [place] [address]. [place] [address] Care Team Providers Name Role Phone Jocelyn Davidson RENATA Unavailable Nikita Gamble Primary Care Provider Naveen Casiano MD Unavailable Harlan Lin MD Unavailable Unavailable Encounter Details Date Type Department Care Team Description 12/05/2020 Medical Correspondence [facility] Scan, PUMP PRESCRIPTION Health Info Mgmt Non-Provider ORDER DANIELLE [facility] DIABETES CARE [address] [place] [phone] Social History Tobacco Use Types Packs/Day Years Used Date Smoking Tobacco: Never Smokeless Tobacco: Never Alcohol Use Standard Drinks/Week Comments Yes 0 (1 standard drink = 0.6 oz pure alcoho l) rare Sex Assigned at Date Recorded Female 03/04/2020 12:33 PM TRAIN CONTROLLER COVID-19 Exposure Response Date Recorded In the [...] Depression Total Score: 0 02/26/2020 1:30 PM TRAIN CONTROLLER documented as of this encounter Care Teams Trap Setter Relationship Specialty Start Date End Date Nikita Gamble PCP - General Family Medicine 05/26/20 [facility] [address] [place] [address] Obiee Architect Dietitian, Registered 05/25/[address] [place] [address] Naveen Casiano MD Assigned PCP 11/16/20 [address] [place] [address] Harlan Lin Assigned Endocrinology 12/07/20 08/01/21 MD [facility]am Provider NO INFO AVAILABLE documented as of this encounter
--- OUTSIDE RECORDS SUMMARY | 2022-03-01 14:58 | XMS_ITS | Encounter Summary ---
:1965 Author Organization [place] Address [address] [facility] [place] [address] Care Team Providers Name Role Phone Jocelyn Davidson RENATA Unavailable Nikita Gamble Primary Care Provider Naveen Casiano MD Unavailable Harlan Lin MD Unavailable Unavailable Encounter Details Date Type Department Care Team Description 01/01/2021 Orders Only [facility] Naveen Casiano, Post-tr aumatic Clinic [place] osteoarthritis of left [address] [place] [address] knee (Primary Dx) [place] [id number] Social History Tobacco Use Types Packs/Day Years Used Date Smoking Tobacco: Never Smokeless Tobacco: Never Alcohol Use Standard Drinks/Week Comments Yes 0 (1 standard drink = 0.6 oz pure alcoho l) rare Sex Assigned at Date Recorded Female 03/04/2020 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 A dditional information about this [...] to perform high complexity lab oratory testing. Naeven Casiano MD LAB - MICRO GENERAL ORDERABL ES Performing Organization Address City/State/ZIP Code Phon e Number [facility] [place] [place] [phone] Diag. Lab [address] [facility] Room D297 [facility] Infectious [place], [place] [phone] Diseases Diagnostic [phone], [facility] Lab (IDDL) [address] [facility], Room D297 documented in this encounter Visit Diagnoses Diagnosis Post-traumatic osteoarthritis of left kn ee - Primary Secondary localized osteoarthrosis, lowe r leg documented in this encounter Additional Health Concerns Assessment Noted Time PHQ-9 Depression Total Score: 0 02/26/2020 1:30 PM REMOTE PILOT OPERATOR documented as of this encounter Care Teams Picker And Packer Relationship Specialty Start Date End Date Nikita Gamble PCP - General Family Medicine 05/26/20 [facility] [address] [place] [address] Educational Psychology Professor Dietitian, Registered 05/25/18 [facility] - [address] [place] [address] Naveen Casiano MD Assigned PCP 11/16/20 [address] [place] [address] Harlan Lin Assigned Endocrinology 12/07/20 08/01/21 MD [facility]am Provider NO INFO AVAILABLE documented as of this encounter
--- OUTSIDE RECORDS SUMMARY | 2022-03-01 14:59 | XMS_ITS | Encounter Summary ---
:1965 Author Organization [place] Address [address] [facility] [place] [address] Care Team Providers Name Role Phone Annette Alvarez MANAGER COST SALES DEMONSTRATOR Unavailable [phone] Goran Lloyd Primary Care Provider Jocelyn Davidson RD Unavailable Tamar Murphy MANAGER COST SALES DEMONSTRATOR Unavailable Encounter Details Date Type Department Care Team Description 02/27/2020 Telephone [facility] Kalpesh Lau PA-C [address] [address] [address] [address] [phone] Social History Tobacco Use Types Packs/Day Years Used Date Smoking Tobacco: Never Smokeless Tobacco: Never Alcohol Use Standard Drinks/Week Comments Yes 0 (1 standard drink = 0.6 oz pure alcoho l) rare Sex Assigned at Date Recorded Female 03/04/2020 12:33 PM JAIL OFFICER COVID-19 Exposure Response Date Recorded In the last month, have you been in contact with No / Unsure 02/03/2020 12:21 PM JAIL OFFICER someone who was confirmed or suspected to have Coronavirus / COVID-19? documented as of this encounter Miscellaneous Notes Telephone Encounter - Kalpesh Lau PA-C - 02/27/2020 5:09 PM CST I listened to patient's lungs which sounded quite raspy and congested. Sent in antibiotic to cover for pneumonia and codeine cough syrup. Kalpesh Lau PA-C on 02/27/2020 at 5:09 PM OFFICER Telephone Encounter - Atiya Cowart - 02/27/2020 3:51 PM CST Patient requesting cough syrup Atiya Cowart/Expansion Envelope Maker Hand OFFICER documented in this encounter Plan of Treatment Not on filedocumented as of this encounter Visit Diagnoses Diagnosis Cough - Primary documented in this encounter Additional Health Concerns Infection Onset Date Last Indicated Resolved Time Rule Out COVID-19 02/26/2020 02/26/2020 02/27/2020 4:3 2 PM JAIL OFFICER Assessment Noted Time PHQ-9 Depression Total Score: 0 02/26/2020 1:30 PM JAIL OFFICER documented as of this encounter Care Teams Android Ios Developer Relationship Specialty Start Date End Date Goran Lloyd PCP - General Family Practice 12/29/17 05/21/20 [facility] [address] [place] [address] Annette Alvarez, Nurse Practitioner Clinical Nurse 03/22/17 10/21/20 MANAGER COST SALES DEMONSTRATOR Specialist [address] [place] [address] Race Starter Dietitian, Registered 05/25/18 [facility] [place] [address] Tamar Murphy APRN Assigned PCP 02/08/20 1 SALES DEMONSTRATOR [address] [place], [place] [id number] documented as of this encounter
--- OUTSIDE RECORDS SUMMARY | 2022-03-01 14:59 | XMS_ITS | Encounter Summary ---
:1965 Author Organization [place] Address [facility] [place] [address] Care Team Providers Name Role Phone Annette Alvarez APRN COPY MACHINE OPERATOR Unavailable [phone] Goran Lloyd Primary Care Provider Jocelyn Davidson Unavailable Reason for Visit Reason Onset Date Comments Forms 11/08/2019 FMLA forms Encounter Details Date Type Department Care Team Description 11/08/2019 Telephone [facility] Annette Alvarez, Forms (FMLA forms) [address] [address] [phone] (Wo rk) Social History Tobacco Use Types Packs/Day Years Used Date Smoking Tobacco: Never Smokeless Tobacco: Never Alcohol Use Standard Drinks/Week Comments Yes 0 (1 standard drink = 0.6 oz pure alcoho l) rare Sex Assigned at Date Recorded Female 03/04/2020 12:33 PM STEEL LAYER documented as of this encounter Miscellaneous Notes Telephone Encounter - Annette Alvarez APRN CNP - 11/08/2019 4:25 PM CDT I can only sign FMLA forms for a patient. I am not allowed to sign forms for the spouse of a patient. This would have to be completed by the spouse's health care provider according to our clinical data assistant. Patient informed. Annette Alvarez NP Endocrinology Telephone Encounter - Mimi Cyr CMA - 11/08/2019 12:56 PM CDT Patient dropped off FMLA forms regarding her diabetes. Please complete and notify patient when ready. Forms on providers desk. Miim Cyr CMA on 11/08/2019 at 1:11 PM documented in this encounter Plan of Treatment Not on filedocumented as of this encounter Visit Diagnoses Not on filedocumented in this encounter Care Teams Gis Web Developer Relationship Specialty Start Date End Date Goran Lloyd PCP - General Family Practice 12/29/17 05/21/[address] [address] Annette Alvarez, Nurse Practitioner Clinical Nurse 03/22/17 10/21/20 KIM COPY MACHINE OPERATOR Specialist [address] [place], [place] [phone] Jocelyn Davidson RD Audio Visual Tech Dietitian, Registered 05/25/18 [facility] [place] [address] documented as of this encounter
--- OUTSIDE RECORDS SUMMARY | 2022-03-01 14:59 | XMS_ITS | Encounter Summary ---
:1965 Author Organization [place] Address [address] [facility] [place] [address] Care Team Providers Name Role Phone Annette Alvarez KIM BRASS BOBBIN WINDER Unavailable [phone] Goran Lloyd Primary Care Provider Jocelyn Davidson RD Unavailable Tamar Murphy APRN BRASS BOBBIN WINDER Unavailable Reason for Visit Diagnostic Imaging XR (Routine) - Closed Specialty Diagnoses / Procedures Referred By Contact Refer red To Contact Diagnoses Cough Tamar Murphy APRN CNP Procedures XR Chest 2 Views [address] [place], [place] [address] Referral ID Status Reason Start Date Expiration Date Visits Requ ested Visits Authorized [id number] Closed 02/26/2020 02/25/2021 1 1 Encounter Details Date Type Department Care Team Description 02/26/2020 Ancillary Procedure [facility] Tamar Murphy Koppel APRN BRASS BOBBIN WINDER [address] [facility] [address] [place] [address] [phone] Social History Tobacco Use Types Packs/Day Years Used Date Smoking Tobacco: Never Smokeless Tobacco: Never Alcohol Use Standard Drinks/Week Comments Yes 0 (1 standard drink = 0.6 oz pure alcoho l) rare Sex Assigned at Date Recorded Female 03/04/2020 12:33 PM ANODE ADJUSTER COVID-19 Exposure Response Date Recorded In the last month, have you been in contact with No / Unsure 02/03/2020 12:21 PM ANODE ADJUSTER someone who was confirmed or suspected to have Coronavirus / COVID-19? documented as of this encounter Plan of Treatment Not on filedocumented as of this encounter Procedures Procedure Name Priority Date/Time Associated Diagnosis Comme nts XR CHEST 2 VIEWS Routine 02/26/2020 2:12 PM Cough Resul ts for this ANODE ADJUSTER procedure are i n the results section. documented in this encounter Results XR Chest 2 Views (02/26/2020 2:12 PM ANODE ADJUSTER) Anatomical Region Laterality Modality Chest Computed Radiography Specimen (Source) Anatomical Location Collection Method / Collectio n Time Received Time / Laterality Volume Impressions 02/26/2020 2:25 PM ANODE ADJUSTER IMPRESSION: PA and lateral views of the chest. Lungs are clear. Heart is normal in size. No effusions are evid ent. No pneumothorax. Degenerative spine changes are noted. Ol d healed lateral right upper rib fractures and mid left rib fractures are again noted. TONIO CRANE MD Narrative 02/26/2020 2:25 PM ANODE ADJUSTER CHEST TWO VIEWS ??02/26/2020 2:12 PM HISTORY: [...] noted. TONIO CRANE MD Tamar Murphy APRN BRASS BOBBIN WINDER IMG DIAGNOSTIC IMAGING ORDER DEJUAN documented in this encounter Visit Diagnoses Not on filedocumented in this encounter Additional Health Concerns Infection Onset Date Last Indicated Resolved Time Rule Out COVID-19 02/26/2020 02/26/2020 02/27/2020 4:3 2 PM ANODE ADJUSTER Assessment Noted Time PHQ-9 Depression Total Score: 0 02/26/2020 1:30 PM ANODE ADJUSTER documented as of this encounter Care Teams Sales Inspector Relationship Specialty Start Date End Date Goran Lloyd PCP - General Family Practice 12/29/17 05/21/[address] [address] Annette Alvarez, Nurse Practitioner Clinical Nurse 03/22/17 10/21/20 STEAM GIGGER BRASS BOBBIN WINDER Specialist [address] [place], [place] [phone] Jocelyn Davidson RD Bailer Operators Supervisor Dietitian, Registered 05/25/18 [facility] [place] [place] [address] Tamar Murphy APRN Assigned PCP 02/08/20 1 BRASS BOBBIN WINDER [address] [place] [address] documented as of this encounter
--- OUTSIDE RECORDS SUMMARY | 2022-03-01 14:59 | XMS_ITS | Encounter Summary ---
:1965 Author Organization [place] Address [address] [place] [address]. [place] [address] Care Team Providers Name Role Phone Annette Alvarez APRN CYLINDER BLOCK HOLE RELINER Unavailable [phone] Goran Lloyd Primary Care Provider Jocelyn Davidson RD Unavailable Reason for Visit Reason Comments Medication Refill Encounter Details Date Type Department Care Team Description 03/22/2019 Refill [facility] Annette Alvarez, Medication Refill [facility] ALVAREZ CYLINDER BLOCK HOLE RELINER [address] [id number] [place] [address] [phone] Social History Tobacco Use Types Packs/Day Years Used Date Smoking Tobacco: Never Smokeless Tobacco: Never Alcohol Use Standard Drinks/Week Comments Yes 0 (1 standard drink = 0.6 oz pure alcoho l) rare Sex Assigned at Date Recorded Female 03/04/2020 12:33 PM DIATHERMY EQUIPMENT REPAIRER documented as of this encounter Miscellaneous Notes Telephone Encounter - Kate Chau RN - 03/23/2019 5:09 PM DIATHERMY EQUIPMENT REPAIRER Routing refill request to provider for review/approval [...] the refill encounter. Kate Chau RN Flex HERMY EQUIPMENT REPAIRER documented in this encounter Plan of Treatment Not on filedocumented as of this encounter Visit Diagnoses Diagnosis Type 1 diabetes mellitus with complicati ons (H) Uncontrolled type 1 diabetes mellitus wi th stage 3 chronic kidney disease Type I (juvenile type) diabetes mellitus with renal manifestations, uncontrolled PCOS (polycystic ovarian syndrome) Polycystic ovaries documented in this encounter Care Teams Storage Specialist Relationship Specialty Start Date End Date Goran Lloyd PCP - General Family Practice 12/29/17 05/21/[address] [address] Annette Alvarez, Nurse Practitioner Clinical Nurse 03/22/17 10/21/20 ENGINEERING OPERATIONS LEADER CYLINDER BLOCK HOLE RELINER Specialist [address] [place] [place], [place] [phone] Jocelyn Davidson RD Home Visitor Dietitian, Registered 05/25/18 [facility] [place] [address] documented as of this encounter
--- OUTSIDE RECORDS SUMMARY | 2022-03-01 14:59 | XMS_ITS | Encounter Summary ---
:1965 Author Organization [place] Address [address] [place] [address]. 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 documented as of this encounter Plan of Treatment Not on filedocumented as of this encounter Visit Diagnoses Not on filedocumented in this encounter Care Teams Varnish Dipper Relationship Specialty Start Date End Date Goran Lloyd PCP - General Family Practice 12/29/17 05/21/20 [facility] [address] [place] [address] Annette Alvarez, Nurse Practitioner Clinical Nurse 03/22/17 10/21/20 APARTMENT COMMUNITY MANAGER SENIOR SITE MANAGER Specialist [address] [place], [place] [phone] Jocelyn Davidson RD Hide Stretcher Hand Dietitian, Registered 05/25/[address] [place] [address] documented as of this encounter
--- OUTSIDE RECORDS SUMMARY | 2022-03-01 14:59 | XMS_ITS | Encounter Summary ---
:1965 Author Organization [place] Address [address] [place] [address] Care Team Providers Name Role Phone Annette Alvarez KIM RODRIGUEZ Unavailable [phone] Goran Lloyd Primary Care Provider Jocelyn Davidson RD Unavailable Tamar Murphy APRN EVP AND CHIEF OPERATING OFFICER Unavailable Reason for Referral Diagnostic Imaging XR (Routine) - Closed Specialty Diagnoses / Procedures Referred By Contact Refer red To Contact Diagnoses Cough Tamar Murphy APRN CNP Procedures XR Chest [address] [place] [address] [phone] Referral ID Status Reason Start Date Expiration Date Visits Requ ested Visits Authorized [id number] Closed 02/26/2020 02/25/2021 1 1 ROLLER Reason for Visit Reason Comments Cough Encounter Details Date Type Department Care Team Description 02/26/2020 Office Visit [facility] Tamar Murphy Cough (Primary Dx) [place] KIM EVP AND CHIEF OPERATING OFFICER [address] [id number] [phone] Social History Tobacco Use Types Packs/Day Years Used Date Smoking Tobacco: Never Smokeless Tobacco: Never Alcohol Use Standard Drinks/Week Comments Yes 0 (1 standard drink = 0.6 oz pure alcoho l) rare Sex Assigned at Date Recorded Female 03/04/2020 12:33 PM STEM ROLLER COVID-19 Exposure Response Date Recorded In the last month, have you been in contact with No / Unsure 02/03/2020 12:21 PM STEM ROLLER someone who was confirmed or suspected to have Coronavirus / COVID-19? documented as of this encounter Last Filed Vital Signs Vital Sign Reading Time Taken Comments Blood Pressure 138/70 02/26/2020 1:22 PM STEM ROLLER Pulse 67 02/26/2020 1:22 PM STEM ROLLER Temperature 37 ??C (98.6 ??F) 02/26/2020 1:22 PM STEM ROLLER Respiratory Rate 19 02/26/2020 1:31 PM STEM ROLLER Oxygen Saturation 96% 02/26/2020 1:22 PM STEM ROLLER Inhaled Oxygen Concentration - - Weight 113.4 kg (250 lb) 02/26/2020 1:22 PM STEM ROLLER Height 180.3 cm (5' 11) 02/26/2020 1:22 PM STEM ROLLER Body Mass Index 34.87 02/26/2020 1:22 PM STEM ROLLER documented in this encounter Patient Instructions Patient InstructionsGiTamar alston APRN CNP - 02/26/2020 1:30 PM CST Prednisone 2 tabs (40 mg) once daily x 5 days. No NSAID use while using prednisone (Advil, ibuprofen, naproxen, Aleve) Consider nasal irrigation ([place] Pot) Benzonatate 1 tab two times per day as needed for cough. ROLLER documented in this encounter Progress Notes Tamar [...] (Advil, ibuprofen, naproxen, Aleve) Consider nasal irrigation ([place] Pot) Benzonatate 1 tab two times per day as needed for cough. Return in about 2 weeks (around 03/11/2020) for if not improved. . Tamar Murphy APRN CNP [facility] ROLLER documented in this encounter Plan of Treatment Not on filedocumented as of this encounter Procedures Procedure Name Priority Date/Time Associated Diagnosis Comme nts XR CHEST 2 VIEWS Routine 02/26/2020 2:12 PM Cough Resul ts for this STEM ROLLER procedure are i n the results section. COVID-19 VIRUS Routine 02/26/2020 1:00 PM Cough Results for this (CORONAVIRUS) BY STEM ROLLER procedure a re in PCR the results section. documented in this encounter Results XR Chest 2 Views (02/26/2020 2:12 PM STEM ROLLER) Anatomical Region Laterality Modality Chest Computed Radiography Specimen (Source) Anatomical Location Collection Method / Collectio n Time Received Time / Laterality Volume Impressions 02/26/2020 2:25 PM STEM ROLLER IMPRESSION: PA and lateral views of the chest. Lungs are clear. Heart is normal in size. No effusions are evid ent. No pneumothorax. Degenerative spine changes are noted. Ol d healed lateral right upper rib fractures and mid left rib fractures are again noted. TONIO CRANE MD Narrative 02/26/2020 2:25 PM STEM ROLLER CHEST TWO VIEWS ??02/26/2020 2:12 PM HISTORY: [...] Virus (Coronavirus) by PCR (02/26/2020 1:00 PM STEM ROLLER) [facility] Method Time Signature COVID-19 Nasopharyngeal 02/26/2020 [facility] Virus PCR to 3:08 PM STEM ROLLER [facility] Source COVID-19 Not Detected 02/27/2020 [facility] Virus PCR to 4:31 PM STEM ROLLER [facility] Result [facility]OR[facility]ORY, [facility] Comment: Collection of multiple specimens from [...] and amplified using the HDPCR SARS-CoV-2 assay ([employer].). The HDPCRTM JAYDNE S-CoV-2 assay is a reverse business objects architect real-time polymerase chain reaction (qRT-PCR) test intended [...] Disease Control) Testing performed by [facility] ([facility]) [address] [facility] [address] [facility] [address] The test performance characteristics wer e determined [...] Specimen from 02/26/2020 1:00 02/26/2020 nasopharyngeal PM STEM ROLLER 3:08 PM STEM ROLLER structure (specimen) Tamar Murphy APRN EVP AND CHIEF OPERATING OFFICER LAB - MICRO GENERAL ORDERABL ES Performing Organization Address City/State/ZIP Code Phon e Number [facility] [place] [address] DIAGNOSTIC LABORATORY, [address] [facility] [address] [address] [place] documented in this encounter Visit Diagnoses Diagnosis Cough - Primary documented in this encounter Additional Health Concerns Infection Onset Date Last Indicated Resolved Time Rule Out COVID-19 02/26/2020 02/26/2020 02/27/2020 4:3 2 PM STEM ROLLER Assessment Noted Time PHQ-9 Depression Total Score: 0 02/26/2020 1:30 PM STEM ROLLER documented as of this encounter Care Teams Narcotics Investigator Relationship Specialty Start Date End Date Goran Lloyd PCP - General Family Practice 12/29/17 05/21/[address] [address] Annette Alvarez, Nurse Practitioner Clinical Nurse 03/22/17 10/21/20 DEVULCANIZER HEAD EVP AND CHIEF OPERATING OFFICER Specialist [address] [place] [address] Behavioral Psychologist Dietitian, Registered 05/25/18 [facility] [address] [place] [address] SHARAN CARSON [address] Tamar Murphy APRN Assigned PCP 02/08/20 1 EVP AND CHIEF OPERATING OFFICER [address] [place] [address] documented as of this encounter
--- OUTSIDE RECORDS SUMMARY | 2022-03-01 14:59 | XMS_ITS | Encounter Summary ---
:1965 Author Organization [place] Address [address] [place] [address]. [place] [address] Care Team Providers Name Role Phone Annette Alvarez APRN INTELLIGENT SYSTEMS ENGINEER Unavailable [phone] Goran Lloyd Primary Care Provider Jocelyn Davidson RD Unavailable Encounter Details Date Type Department Care Team Description 10/11/2018 Travel Social History Tobacco Use Types Packs/Day Years Used Date Smoking Tobacco: Never Smokeless Tobacco: Never Alcohol Use Standard Drinks/Week Comments Yes 0 (1 standard drink = 0.6 oz pure alcoho l) rare Sex Assigned at Date Recorded Female 03/04/2020 12:33 PM BACKUP ADMINISTRATOR documented as of this encounter Plan of Treatment Not on filedocumented as of this encounter Visit Diagnoses Not on filedocumented in this encounter Care Teams Yard Switch Operator Relationship Specialty Start Date End Date Goran Lloyd PCP - General Family Practice 12/29/17 05/21/20 [facility] [address] [place] [address] Annette Alvarez, Nurse Practitioner Clinical Nurse 03/22/17 10/21/20 MACHINE LOADER INTELLIGENT SYSTEMS ENGINEER Specialist [address] [place], [place] [phone] Jocelyn Davidson RD Forest Fire Management Officer Dietitian, Registered 05/25/[address] [place] [address] documented as of this encounter
--- OUTSIDE RECORDS SUMMARY | 2022-03-01 14:59 | XMS_ITS | Encounter Summary ---
:1965 Author Organization [place] Address [address] [facility] [place] [address] Care Team Providers Name Role Phone Annette Alvarez APRN, CNP Unavailable Goran Lloyd Primary Care Provider Jocelyn Davidson RD Unavailable Reason for Referral Vision Services (Routine) - Closed Specialty Diagnoses / Procedures Referred By Contact Refer red To Contact Diagnoses Type 1 diabetes mellitus with complications (H) Annette Alvarez [facility] KIM RODRIGUEZ SURGEONS, [address] [place], [place] [phone] [address] [place] [address] Phone: Referral ID Status Reason Start Date Expiration Date Visits Requ ested Visits Authorized [id number] Closed 11/07/2019 11/06/2020 1 1 Reason for Visit Reason Comments Diabetes Thyroid Disease Encounter Details Date Type Department Care Team Description 11/07/2019 Office Visit [facility] Annette Nuñez Type 1 rohan betes mellitus with complications (H) (Primary Dx); [facility] [place] KIM Monroe CNP Benign essential hypertension [address] [place] [address] [phone] Social History Tobacco Use Types Packs/Day Years Used Date Smoking Tobacco: Never Smokeless Tobacco: Never Alcohol Use Standard Drinks/Week Comments Yes 0 (1 standard drink = 0.6 oz pure alcoho l) rare Sex Assigned at Date Recorded Female 03/04/2020 12:33 PM 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 Intimate partner violence Fear of current or ex partner: Not on file Emotionally abused: Not on file Physically abused: Not on file Forced sexual activity: Not on file Other Topics Concern ??? Parent/sibling w/ CABG, ND or angioplasty before 65F 55M? Not Asked [...] More than 50% of the time spent with??Ms.??[place]??on counseling / coordinating her??care??and discussing the above plan of care. The patient indicates understanding of the above issues and agrees withthe plan set forth. ??Total face to face??time was 25??minutes. Follow-up: 3 months Annette Alvarez NP Endocrinology [facility] CC: documented in this encounter [...] 7.3 (H) 0 - 5.6 % 11/07/2019 [place] 1:29 PM CDT [facility] Comment: Normal <5.7% Prediabetes 5.7-6.4% ??Diab etes 6.5% or higher - adopted from ADA consensus guidelines. Specimen Anatomical Collection Method Collection Time Receive d Time (Source) Location / / Volume Laterality Blood specimen 11/07/2019 1:17 PM 020 1:18 (specimen) CDT PM CDT Annette Alvarez APRN BROILER SUPERVISOR LAB - BLOOD ORDERABLES Performing Organization Address City/State/ZIP Code Phon e Number [facility] [address] [place] [address] documented in this encounter Visit Diagnoses Diagnosis Type 1 diabetes mellitus with complicati ons (H) - Primary Benign essential hypertension Essential hypertension, benign documented in this encounter Care Teams Tonnage Compilation Clerk Relationship Specialty Start Date End Date Goran Lloyd PCP - General Family Practice 12/29/17 05/21/20 [facility] [address] [place] [address] Annette Alvarez, Nurse Practitioner Clinical Nurse 03/22/17 10/21/20 [facility] BROILER SUPERVISOR Specialist [address] [place] [address] Platform Inspector Dietitian, Registered 05/25/18 [facility] [address] [place] [address] [place] [address] documented as of this encounter
--- OUTSIDE RECORDS SUMMARY | 2022-03-01 14:59 | XMS_ITS | Encounter Summary ---
:1965 Author Organization [place] Address [address] [place] [address] Care Team Providers Name Role Phone Annette Alvarez APRN ELECTRICAL DESIGN TECHNICIAN Unavailable [phone] Goran Lloyd Primary Care Provider Jocelyn Davidson RD Unavailable Reason for Visit Reason Comments Diabetes Education Encounter Details Date Type Department Care Team Description 10/11/2018 [facility] Yadira Garcia Diabe gail Education Health/Nurse Clinic [place] [address] [facility] [phone] [place], [place] (Work) [address] Social History Tobacco Use Types Packs/Day Years Used Date Smoking Tobacco: Never Smokeless Tobacco: Never Alcohol Use Standard Drinks/Week Comments Yes 0 (1 standard drink = 0.6 oz pure alcoho l) rare Sex Assigned at Date Recorded Female 03/04/2020 12:33 PM 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 documented as of this encounter Progress [...] Getting harder to manage Cultural Influences/Ethnic Background: Thai Pt seen today to set up T:Slim [...] Healthy Eating Healthy Eating Assessed Today: No Cultural/jain diet restrictions?: No Meal planning: Avoiding sweets, [...] Insulin Time: 4 hours Using T:Connect: Yes Revenew Sharing Code: [id number] Current Treatments: Diet, Insulin Injections, Insulin Pump [...] Sees dentist every 6 months?: Yes Sees insulation supervisor (foot doctor)?: No Healthy Coping Healthy Coping [...] Primary documented in this encounter Care Teams Smelter Operator Relationship Specialty Start Date End Date Goran Lloyd PCP - General Family Practice 12/29/17 05/21/[address] [address] Annette Alvarez, Nurse Practitioner Clinical Nurse 03/22/17 10/21/20 [employer] ELECTRICAL DESIGN TECHNICIAN Specialist [address] [place], [place] [phone] Jocelyn Davidson RD Oil Dispatcher Dietitian, Registered 05/25/18 [facility] [address] [place] [address] SHARAN CARSON [id number] documented as of this encounter
--- OUTSIDE RECORDS SUMMARY | 2022-03-01 14:59 | XMS_ITS | Encounter Summary ---
:1965 Author Organization [place] Address [address] [place] [address]. [place] [address] Care Team Providers Name Role Phone Annette Alvarez APRN, CNP Unavailable [phone] Goran Lloyd Primary Care Provider Jocelyn Davidson RD Unavailable Tamar Murphy APRN CAM MAKER Unavailable Reason for Referral Patient Education (Routine) - Closed Specialty Diagnoses / Procedures Referred By Contact Refer red To Contact Diabetes Education Diagnoses Controlled type 1 diabetes mellitus with chronic kidney disease, unspecified CKD stage (H) Annette Alvarez, [facility] [id number] [place] [phone] Referral ID Status Reason Start Date Expiration Date Visits Requ ested Visits Authorized [id number] Closed 03/05/2020 03/05/2021 1 1 ROSTOMAL NURSE Reason for Visit Reason Comments Diabetes Encounter Details Date Type Department Care Team Description 03/05/2020 Office Visit [facility] Annette Nuñez Controlled type 1 diabetes mellitus with chronic kidney disease, unspecified CKD stage (H) (Primary Dx); [facility] [place] KIM Monroe CNP 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; [id number] [place] [address] [phone] Social History Tobacco Use Types Packs/Day Years Used Date Smoking Tobacco: Never Smokeless Tobacco: Never Alcohol Use Standard Drinks/Week Comments Yes 0 (1 standard drink = 0.6 oz pure alcoho l) rare Sex Assigned at Date Recorded Female 03/04/2020 12:33 PM ENTEROSTOMAL NURSE COVID-19 Exposure Response Date Recorded In the last month, have you been in contact with No / Unsure 03/05/2020 11:41 AM ENTEROSTOMAL NURSE someone who was confirmed or suspected to have Coronavirus / COVID-19? documented as of this encounter Last Filed Vital Signs Vital Sign Reading Time Taken Comments Blood Pressure 110/60 03/05/2020 12:40 PM ENTEROSTOMAL NURSE Pulse 70 03/05/2020 12:40 PM ENTEROSTOMAL NURSE Temperature 36.9 ??C (98.5 ??F) 03/05/2020 12:40 PM ENTEROSTOMAL NURSE Respiratory Rate - - Oxygen Saturation 97% 03/05/2020 12:40 PM ENTEROSTOMAL NURSE Inhaled Oxygen Concentration - - Weight - - Height - - Body Mass Index - - documented in this encounter Progress Notes Annette Alvarez APRN CAM MAKER - 03/05/2020 1:30 PM CST Name: [...] times a day Previously seeing ulysses at [employer] 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 Intimate partner violence Fear of current or ex partner: Not on file Emotionally abused: Not on file Physically abused: Not on file Forced sexual activity: Not on file Other Topics Concern ??? Parent/sibling w/ CABG, [place] or angioplasty before 65F 55M? 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 Intimate partner violence Fear of current or ex partner: Not on file Emotionally abused: Not on file Physically abused: Not on file Forced sexual activity: Not on file Other Topics Concern ??? Parent/sibling w/ CABG, [place] or angioplasty before 65F 55M? Not Asked [...] ??? Basic metabolic panel ??? AMBULATORY ADULT [facility] REFERRAL Radiology/Consults ordered today: More than 50% of the time spent with?Jadiel??on counseling / coordinating her??care??and discussing the above plan of care. The patient indicates understanding of the above issues and agrees withthe plan set forth. ??Total face to face??time was 25??minutes. Follow-up: 3 months with ulysses Alvarez NP Endocrinology [facility] CC: ROSTOMAL NURSE documented in this encounter Miscellaneous Notes Result Encounter Note - Annette Alvarez APRN CNP - 03/05/2020 1:30 PM ENTEROSTOMAL NURSE Marnie, As previously messaged, there was no [...] in the office. Annette Alvarez NP Endocrinology ROSTOMAL NURSE documented in this encounter Plan of Treatment Scheduled Referrals Name Type Priority Associated Diagnoses Order S chedule AMBULATORY ADULT Referral Routine Controlled type 1 Expect ed: PLANE TABLEMAN diabetes mellitus with 03/05/2020, Expires: REFERRAL chronic kidney disease, 11/2020 unspecified CKD stage (H) documented as of this encounter Procedures Procedure Name Priority Date/Time Associated Diagnosis Comme nts ALBUMIN RANDOM URINE Routine 03/05/2020 2:40 PM Controlled typ e 1 Results for this QUANTITATIVE ENTEROSTOMAL NURSE diabetes mellitus procedure are in with chronic kidney the resu lts disease, unspecified section . CKD stage (H) TSH WITH FREE T4 Routine 03/05/2020 2:39 PM Controlled type 1 Results for this REFLEX ENTEROSTOMAL NURSE diabetes mellitus procedure are in with chronic kidney the resu lts disease, unspecified section . CKD stage (H) LIPID REFLEX TO Routine 03/05/2020 2:39 PM Controlled type 1 R esults for this DIRECT LDL PANEL ENTEROSTOMAL NURSE diabetes mellitus proced ure are in with chronic kidney the resu lts disease, unspecified section . CKD stage (H) BASIC METABOLIC PANEL Routine 03/05/2020 2:39 PM Controlled ty pe 1 Results for this ENTEROSTOMAL NURSE diabetes mellitus procedure are in with chronic kidney the resu lts disease, unspecified section . CKD stage (H) HEMOGLOBIN A1C Routine 03/05/2020 12:14 Controlled type 1 Resu lts for this PM ENTEROSTOMAL NURSE diabetes mellitus procedure are in with chronic kidney the resu lts disease, unspecified section . CKD stage (H) documented in this encounter Results Albumin Random Urine Quantitative with Creat Ratio (03/05/2020 2:40 PM ENTEROSTOMAL NURSE) [facility] Method Time Signature Creatinine 72 mg/dL 03/06/2020 [place] Urine 8:48 AM [facility] Albumin Urine <5 mg/L 03/06/2020 [place] mg/L 8:56 AM [facility] Albumin Urine Unable to 0 - 25 03/06/2020 [place] mg/g Cr calculate due mg/g Cr 8:56 AM ENTEROSTOMAL NURSE CLINICS to low value [facility] Specimen Anatomical Collection Method Collection Time Receive d Time (Source) Location / / Volume Laterality Urine specimen 03/05/2020 2:40 PM 020 2:41 (specimen) ENTEROSTOMAL NURSE PM ENTEROSTOMAL NURSE Annette Alvarez INTERNATIONAL LOGISTICS MANAGER CAM MAKER LAB - URINE ORDERABLES Performing Organization Address City/State/ZIP Code Phon e Number [facility] [address] [place] [address] (ABNORMAL) Basic metabolic panel (03/05/2020 2:39 PM ENTEROSTOMAL NURSE) [facility] Method Time Signature Sodium 139 133 - 144 03/06/2020 [place] mmol/L 11:26 AM [facility] Potassium 4.6 3.4 - 5.3 03/06/2020 [place] mmol/L 11:26 AM [facility] Chloride 108 94 - 109 03/06/2020 [place] mmol/L 11:26 AM [facility] Carbon Dioxide 25 20 - 32 03/06/2020 [facility] mmol/L 11:43 AM [facility] Anion Gap 6 3 - 14 03/06/2020 [place] mmol/L 11:43 AM [facility] Glucose 64 (L) 70 - 99 03/06/2020 [place] mg/dL 11:43 AM [facility] Urea Nitrogen 38 (H) 7 - 30 03/06/2020 [place] mg/dL 11:43 AM [facility] Creatinine 1.83 (H) 0.52 - 03/06/2020 [facility] 1.04 11:43 AM [facility] mg/dL [facility] GFR Estimate 31 (L) >60 03/06/2020 [place] mL/min/{1 11:43 AM [facility] .73_m2} HOSPITAL Comment: Non GFR Calc Starting 03/14/2018, serum creatinine ba sed estimated GFR (eGFR) will be calculated using the Chronic Kidney Dise [employer] [facility] Epidemiology Collaboration (CKD-EPI) equation. GFR Estimate If 35 (L) >60 mL/min/{1.73_m2} 03/06/2020 11 :43 AM [facility] Comment: GFR Calc Starting 03/14/2018, serum creatinine ba sed estimated GFR (eGFR) will be calculated using the Chronic Kidney Dise [employer] [facility] [employer] Epidemiology Collaboration (CKD-EPI) equation. Calcium 9.1 8.5 - 10.1 mg/dL 03/06/2020 11:[address] [facility] Specimen Anatomical Collection Method Collection Time Receive d Time (Source) Location / / Volume Laterality Blood specimen 03/05/2020 2:39 PM 020 2:40 (specimen) ENTEROSTOMAL NURSE PM ENTEROSTOMAL NURSE Annette Alvarez INTERNATIONAL LOGISTICS MANAGER CAM MAKER LAB - BLOOD ORDERABLES Performing Organization Address City/State/ZIP Code Phon e Number [facility] [address] [phone] [facility] [address] [place], [place] [address] [facility] [address] [phone], [facility] [phone] (ABNORMAL) Lipid panel reflex to direct LDL Fasting (03/05/2020 2:39 PM ENTEROSTOMAL NURSE) athologist Signature Cholesterol 170 <200 mg/dL 03/06/2020 [place] 11:43 AM [facility] Triglycerides 224 (H) <150 mg/dL 03/06/2020 [place] 11:43 AM [facility] Comment: Borderline high: ??150-199 mg/dl High: ? 200-499 mg/dl Very high: ? >499 mg/dl HDL Cholesterol 57 >49 mg/dL 03/06/2020 11:51 AM [facility] LDL Cholesterol 68 <100 mg/dL 03/06/2020 11:51 AM [facility] Calculated [facility] Comment: Desirable: <100 mg/dl Non HDL Cholesterol 113 <130 mg/dL 03/06/2020 11:51 AM ENTEROSTOMAL NURSE [facility] Specimen Anatomical Collection Method Collection Time Receive d Time (Source) Location / / Volume Laterality Blood specimen 03/05/2020 2:39 PM 020 2:40 (specimen) ENTEROSTOMAL NURSE PM ENTEROSTOMAL NURSE Annette Alvarez APRN, CNP LAB - BLOOD ORDERABLES Performing Organization Address City/[facility]/ZIP Code Phon e Number [facility] [address] [place], [place] [address] [facility] [address] [place] [address], [place] [phone] TSH with free T4 reflex (03/05/2020 2:39 PM ENTEROSTOMAL NURSE) athologist Signature TSH 1.97 0.40 - 4.00 03/06/2020 [facility] mU/L 11:57 AM [facility] Specimen Anatomical Collection Method Collection Time Receive d Time (Source) Location / / Volume Laterality Blood specimen 03/05/2020 2:39 PM 020 2:40 (specimen) ENTEROSTOMAL NURSE PM ENTEROSTOMAL NURSE Annette Alvarez APRN, CNP LAB - BLOOD ORDERABLES Performing Organization Address City/[facility]/ZIP Code Phon e Number [facility] [address] [place] [address] (ABNORMAL) Hemoglobin A1c (03/05/2020 12:14 PM ENTEROSTOMAL NURSE) athologist Signature Hemoglobin A1C 6.6 (H) 0 - 5.6 % 03/05/2020 [place] 12:36 PM ENTEROSTOMAL NURSE [facility] Comment: Normal <5.7% Prediabetes 5.7-6.4% ??Diab etes 6.5% or higher - adopted from ADA consensus guidelines. Specimen Anatomical Collection Method Collection Time Receive d Time (Source) Location / / Volume Laterality Blood specimen 03/05/2020 12:14 0 (specimen) PM ENTEROSTOMAL NURSE 12:28 PM ENTEROSTOMAL NURSE Annette Alvarez APRN, CNP LAB - BLOOD ORDERABLES Performing Organization Address City/[facility]/ZIP Code Phon e Number [facility] [id number] [place] [phone] documented in this encounter Visit Diagnoses Diagnosis Controlled type 1 diabetes mellitus with chronic kidney disease, unspecified CKD stage (H) - Primary 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 Insulin pump in place Insulin pump status documented in this encounter Additional Health Concerns Assessment Noted Time PHQ-9 Depression Total Score: 0 02/26/2020 1:30 PM ENTEROSTOMAL NURSE documented as of this encounter Care Teams Project Buyer Relationship Specialty Start Date End Date Goran Lloyd PCP - General Family Practice 12/29/17 05/21/[address] [address] Annette Alvarez, Nurse Practitioner Clinical Nurse 03/22/17 10/21/20 INTERNATIONAL LOGISTICS MANAGER CAM MAKER Specialist [id number] [place] [address] Wheat Grower Dietitian, Registered 05/25/18 [facility] Kaleigh SERR[place]O [address] [place] [address] [place] [address] Tamar Murphy APRN Assigned PCP 02/08/20 1 CAM MAKER [id number] [place] [phone] documented as of this encounter
--- OUTSIDE RECORDS SUMMARY | 2022-03-01 14:59 | XMS_ITS | Encounter Summary ---
:1965 Author Organization [place] Address [address] [facility] [place] [address] Care Team Providers Name Role Phone Annette Alvarez APRN, CNP Unavailable [phone] Goran Lloyd Primary Care Provider Jocelyn Davidson RD Unavailable Reason for Visit Reason Onset Date Comments Refill Request 02/11/2019 levothyroxine (SYNTH ROID/LEVOTHROID) 150 MCG tablet Encounter Details Date Type Department Care Team Description 02/11/2019 Refill [facility] Annette Alvarez, Refill Request Maricarmen ALVAREZ CNP (levothyroxine [id number] [place] [address] AV E (SYNTHROID/LEVOTHROID) [place], [place] 150 MCG tablet) [address] [address] [address] [address] [phone] Social History Tobacco Use Types Packs/Day Years Used Date Smoking Tobacco: Never Smokeless Tobacco: Never Alcohol Use Standard Drinks/Week Comments Yes 0 (1 standard drink = 0.6 oz pure alcoho l) rare Sex Assigned at Date Recorded Female 03/04/2020 12:33 PM CREDIT ANALYSIS MANAGER documented as of this encounter Miscellaneous Notes Telephone Encounter - Pam Boudreaux RN - 02/20/2019 4:49 PM CST Images from the original note were not included. Routing refill request to provider for review/approval because: Thyroid Protocol [id number] 8:05 PM Recent (12 mo) or future (30 days) visit within the authorizing provider's specialty Normal TSH on file in past 12 months Next 5 appointments (look out 90 days) Feb 21, 2019 9:30 AM CREDIT ANALYSIS MANAGER Telephone Visit with Jocelyn Davidson RD [facility] [address] [facility] [address] Apr 05, 2019 6:30 PM CREDIT ANALYSIS MANAGER Return Visit with Annette Alvarez APRN CNP [facility] [address] [facility] [address] IT ANALYSIS MANAGER Telephone Encounter - Sloan Vick RN - 02/15/2019 8:05 PM CST FNA spoke to patient re: levothyroxine refill. FNA advised of note by Annette Alvarez NP. Patient says her TSH was done at the [facility]. Patient has an appointment on 04/05/19 with Annette. Patient would like refills to be sent to [facility] [place]. Patient is asking for a 90 day refill if possible. Sloan Vick RN/[facility] IT ANALYSIS MANAGER Telephone Encounter - Annette Alvarez APRN CNP - 02/15/2019 4:21 AM CREDIT ANALYSIS MANAGER Please call and have patient schedule a follow up visit - not seen for 1 year. Route back to me for refills to last until her scheduled follow up . Annette Alvarez NP Endocrinology IT ANALYSIS MANAGER Telephone Encounter - Pam Tavera RN - 02/12/2019 4:32 PM CST Failed protocol IT ANALYSIS MANAGER Telephone Encounter - Micah Sawant - 02/11/2019 4:54 PM CST Requested Prescriptions Pending Prescriptions Disp Refills ??? levothyroxine (SYNTHROID/LEVOTHROID) 150 MCG tablet Last Written Prescription Date: 10/17/2018 Last Fill Quantity: 90 tablet, # refills: 0 Last Office Visit: No previous visit found Future Office Visit: Next 5 appointments (look out 90 days) Apr 05, 2019 6:30 PM CREDIT ANALYSIS MANAGER Return Visit with Annette Alvarez APRN CNP [facility] [address] [facility] [address] 90 tablet [...] had a positive test, please check TSH. IT ANALYSIS MANAGER documented in this encounter Plan of Treatment Not on filedocumented as of this encounter Visit Diagnoses Diagnosis 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 documented in this encounter Care Teams Cut Off Saw Operator Relationship Specialty Start Date End Date Goran Lloyd PCP - General Family Practice 12/29/17 05/21/[address] [address] Annette Alvarez, Nurse Practitioner Clinical Nurse 03/22/17 10/21/20 GROUP CAPTAIN ASSOCIATE RELATIONS SPECIALIST Specialist [address] [facility], [place] [phone] Jocelyn Davidson RD Resort Housekeeper Dietitian, Registered 05/25/18 [facility] [place] [address] [place] [address] documented as of this encounter
--- OUTSIDE RECORDS SUMMARY | 2022-03-01 14:59 | XMS_ITS | Encounter Summary ---
:1965 Author Organization [place] Address [address] [place] [address]. [place] [address] Care Team Providers Name Role Phone Annette Alvarez Mabel EMPLOYMENT LAW ATTORNEY KILN HEAD HOUSE OPERATOR Unavailable Goran Lloyd Primary Care Provider Jocelyn Davidson RD Unavailable Reason for Visit Reason Comments Medication Refill Encounter Details Date Type Department Care Team Description 09/30/2018 Refill [facility] Annette Alvarez, Medication Refill [place] EMPLOYMENT LAW ATTORNEY KILN HEAD HOUSE OPERATOR [address] [phone] [place] [address] (Wo rk) Social History Tobacco Use Types Packs/Day Years Used Date Smoking Tobacco: Never Smokeless Tobacco: Never Alcohol Use Standard Drinks/Week Comments Yes 0 (1 standard drink = 0.6 oz pure alcoho l) rare Sex Assigned at Date Recorded Female 03/04/2020 12:33 PM YARN POLISHING MACHINE OPERATOR documented as of this encounter Miscellaneous Notes Telephone Encounter - Brea Charles RN - 10/01/2018 8:23 AM CDT Denied- dose was changed. Brea Charles RN documented in this encounter Plan of Treatment Not on filedocumented as of this encounter Visit Diagnoses Diagnosis 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 documented in this encounter Care Teams Rn Delivery Relationship Specialty Start Date End Date Goran Lloyd PCP - General Family Practice 12/29/17 05/21/[address] [address] Annette Alvarez, Nurse Practitioner Clinical Nurse 03/22/17 10/21/20 EMPLOYMENT LAW ATTORNEY KILN HEAD HOUSE OPERATOR Specialist [address] [place], [place] [phone] Jocelyn Davidson RD Time Lock Expert Dietitian, Registered 05/25/18 [facility] [place] [address] documented as of this encounter
--- OUTSIDE RECORDS SUMMARY | 2022-03-01 14:59 | XMS_ITS | Encounter Summary ---
:1965 Author Organization [place] Address [address] [facility] [place] [address] Care Team Providers Name Role Phone Annette Alvarez APRN PUBLIC HEALTH SPECIALIST Unavailable Goran Lloyd Primary Care Provider Jocelyn Davidson RD Unavailable Reason for Visit Reason Onset Date Comments Diabetes 02/19/2019 High Blood Sugars Encounter Details Date Type Department Care Team Description 02/19/2019 Telephone [facility] Jocelyn Davidson RD Diabetes (High Blood Clinic [facility] Sugars) [address] [place] [id number] [phone] Social History Tobacco Use Types Packs/Day Years Used Date Smoking Tobacco: Never Smokeless Tobacco: Never Alcohol Use Standard Drinks/Week Comments Yes 0 (1 standard drink = 0.6 oz pure alcoho l) rare Sex Assigned at Date Recorded Female 03/04/2020 12:33 PM FREIGHT FORWARDER documented as of this encounter Miscellaneous Notes Telephone Encounter - Jocelyn Davidson RD - 02/23/2019 8:25 AM CST See phone encounter 02/21. Jocelyn Davidson RD, CDE Diabetes Nurse Practitioner Physician Assistant GHT FORWARDER Telephone Encounter - Jaqui Logan RD - [...] Tuesday. Jaqui Logan MS, RD, LD, CDE GHT FORWARDER Telephone Encounter - Goran Mad[place] - 02/19/2019 8:46 AM CST Patient having very high numbers that are not registering on meter. As well as multiple Ketones. Hasbeen going on since Tuesday. Please call to discuss. GHT FORWARDER documented in this encounter Plan of Treatment Not on filedocumented as of this encounter Visit Diagnoses Not on filedocumented in this encounter Care Teams Science Specialist Relationship Specialty Start Date End Date Goran Lloyd PCP - General Family Practice 12/29/17 05/21/20 [facility] [address] [place] [address] Annette Alvarez, Nurse Practitioner Clinical Nurse 03/22/17 10/21/20 MACHINE ASSEMBLER SUPERVISOR PUBLIC HEALTH SPECIALIST Specialist [address] [place] [address] Vamp Liner Dietitian, Registered 05/25/18 [facility] [address] [place] [address] documented as of this encounter
--- OUTSIDE RECORDS SUMMARY | 2022-03-01 14:59 | XMS_ITS | Encounter Summary ---
:1965 Author Organization [place] Address [address] [place] [address]. [place] [address] Care Team Providers Name Role Phone Annette Alvarez JUNIOR HIGH MATH TEACHER [employer] [place] Unavailable [phone] Goran Lloyd Primary Care Provider Jocelyn Davidson RD Unavailable Encounter Details Date Type Department Care Team Description 08/16/2019 Travel Social History Tobacco Use Types Packs/Day Years Used Date Smoking Tobacco: Never Smokeless Tobacco: Never Alcohol Use Standard Drinks/Week Comments Yes 0 (1 standard drink = 0.6 oz pure alcoho l) rare Sex Assigned at Date Recorded Female 03/04/2020 12:33 PM INDUSTRIAL CONTROLLER COVID-19 Exposure Response Date Recorded In the last month, have you been in contact with No / Unsure 08/16/2019 5:23 PM CDT someone who was confirmed or suspected to have Coronavirus / COVID-19? documented as of this encounter Plan of Treatment Not on filedocumented as of this encounter Visit Diagnoses Not on filedocumented in this encounter Care Teams Metal Spray Operator Relationship Specialty Start Date End Date Goran Lloyd PCP - General Family Practice 12/29/17 05/21/[address] [address] Annette Alvarez, Nurse Practitioner Clinical Nurse 03/22/17 10/21/20 JUNIOR HIGH MATH TEACHER TRUST AND ESTATES [place]GAL Specialist [address] [place] [address] Fruit Washer Dietitian, Registered 05/25/18 [facility] [address] [id number] documented as of this encounter
--- OUTSIDE RECORDS SUMMARY | 2022-03-01 14:59 | XMS_ITS | Encounter Summary ---
:1965 Author Organization [place] Address [address] [place] [address]. [place] [address] Care Team Providers Name Role Phone Annette Alvarez EMERGENCY VETERINARY TECHNICIAN WET PRIMER POWDER BLENDER Unavailable [phone] Goran Lloyd Primary Care Provider Jocelyn Davidson RD Unavailable Encounter Details Date Type Department Care Team Description 08/24/2019 Travel Social History Tobacco Use Types Packs/Day Years Used Date Smoking Tobacco: Never Smokeless Tobacco: Never Alcohol Use Standard Drinks/Week Comments Yes 0 (1 standard drink = 0.6 oz pure alcoho l) rare Sex Assigned at Date Recorded Female 03/04/2020 12:33 PM RETAIL ASSISTANT COVID-19 Exposure Response Date Recorded In the last month, have you been in contact with No / Unsure 08/24/2019 3:39 PM CDT someone who was confirmed or suspected to have Coronavirus / COVID-19? documented as of this encounter Plan of Treatment Not on filedocumented as of this encounter Visit Diagnoses Not on filedocumented in this encounter Care Teams Commodity Lead Relationship Specialty Start Date End Date Goran Lloyd PCP - General Family Practice 12/29/17 05/21/[address] [address] Annette Alvarez, Nurse Practitioner Clinical Nurse 03/22/17 10/21/20 EMERGENCY VETERINARY TECHNICIAN WET PRIMER POWDER BLENDER Specialist [address] [place] [address] Manager Communication Dietitian, Registered 05/25/18 [facility] [address] [id number] documented as of this encounter
--- OUTSIDE RECORDS SUMMARY | 2022-03-01 14:59 | XMS_ITS | Encounter Summary ---
:1965 Author Organization [place] Address [address] [place] [address]. [place] [address] Care Team Providers Name Role Phone Annette Alvarez APRN SIFTER AND MILLER Unavailable Goran Lloyd Primary Care Provider Jocelyn Davidson RD Unavailable Reason for Visit Reason Onset Date Comments Refill Request 10/16/2018 Levothyroxine refill request Encounter Details Date Type Department Care Team Description 10/16/2018 Refill [facility] Annette Alvarez, Refill Request [place] MEDICAL CASE MANAGER SIFTER [employer] MILLER (Levothyroxine refill [address] [facility] [address] [facility] request) [place] [address] [phone] (Wo rk) Social History Tobacco Use Types Packs/Day Years Used Date Smoking Tobacco: Never Smokeless Tobacco: Never Alcohol Use Standard Drinks/Week Comments Yes 0 (1 standard drink = 0.6 oz pure alcoho l) rare Sex Assigned at Date Recorded Female 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 Message sent. Was due for follow up and labs with Annette in Apr 2018. Prescription approved per [facility] Refill Protocol x 1. Ashok Bella, RN Telephone Encounter - Ashok Bella RN - 10/17/2018 10:33 AM CDT Telephone Encounter - Savanah Madrid - 10/16/2018 3:44 PM CDT Patient requesting Levothyroxine to [facility]. Savanah Madrid. 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
--- OUTSIDE RECORDS SUMMARY | 2022-03-01 14:59 | XMS_ITS | Encounter Summary ---
:1965 Author Organization [place] Address [address] [facility] [place] [address] Care Team Providers Name Role Phone Annette Alvarez APRN IT HELP DESK ANALYST Unavailable [phone] Goran Lloyd Primary Care Provider Deidre Kirkland RD Unavailable Reason for Visit Reason Onset Date Comments Diabetes Education 09/01/2018 Encounter Details Date Type Department Care Team Description 09/01/2018 Telephone [facility] Deidre Kirkland RD Diabetes Education [place] - [address] [phone] Social History Tobacco Use Types Packs/Day Years Used Date Smoking Tobacco: Never Smokeless Tobacco: Never Alcohol Use Standard Drinks/Week Comments Yes 0 (1 standard drink = 0.6 oz pure alcoho l) rare Sex Assigned at Date Recorded 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 Sending rx for insulin syringes to [facility] pharmacy. Pt planning to upload her pump in next 1-2 weeks as requested by CDE. Deidre Kirkland RD, CDE Diabetes Blueprint Developer Telephone Encounter - Deidre Kirkland RD - 09/01/2018 1:44 PM CDT Noted a missed call from patient (per caller ID). Attempted to call patient back- no answer- left message encouraging her to send a [employer] message. Otherwise, will attempt to reach once more before end of day. Deidre Kirkland RD, JENNE Diabetes Blueprint Developer Addendum Note - Deidre Kirkland RD - 09/01/2018 1:44 PM CDT Addended by: DEIDRE KIRKLAND on: 09/01/2018 04:05 PM Modules accepted: Orders documented in this encounter Plan of Treatment Not on filedocumented as of this encounter Visit Diagnoses Diagnosis Type 1 diabetes mellitus with complicati ons (H) - Primary documented in this encounter Care Teams Operating Room Surgical Technologist Relationship Specialty Start Date End Date Goran Lloyd PCP - General Family Practice 12/29/17 05/21/20 [facility] [address] [place] [address] Annette Alvarez, Nurse Practitioner Clinical Nurse 03/22/17 10/21/20 ASSEMBLER GOLF WOOD HEAD IT HELP DESK ANALYST Specialist [address] [place], [place] [phone] Deidre Kirkland RD Supervisor Plate Pasting Dietitian, Registered 05/25/18 [facility] [address] [address] documented as of this encounter
--- OUTSIDE RECORDS SUMMARY | 2022-03-01 14:59 | XMS_ITS | Encounter Summary ---
:1965 Author Organization [place] Address [address] [place] [address]. [place] [address] Care Team Providers Name Role Phone Annette Alvarez OPTOMETRIST ASSISTANT FORGING MACHINE HAND Unavailable [phone] Goran Lloyd Primary Care Provider Jocelyn Davidson RD Unavailable Encounter Details Date Type Department Care Team Description 02/03/2020 Travel Social History Tobacco Use Types Packs/Day Years Used Date Smoking Tobacco: Never Smokeless Tobacco: Never Alcohol Use Standard Drinks/Week Comments Yes 0 (1 standard drink = 0.6 oz pure alcoho l) rare Sex Assigned at Date Recorded Female 03/04/2020 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 EDUCATION COVID-19 Exposure Response Date Recorded In the last month, have you been in contact with No / Unsure 02/03/2020 12:21 PM SUPERVISOR EDUCATION someone who was confirmed or suspected to have Coronavirus / COVID-19? documented as of this encounter Plan of Treatment Not on filedocumented as of this encounter Visit Diagnoses Not on filedocumented in this encounter Care Teams Green Building Materials Designer Relationship Specialty Start Date End Date Goran Lloyd PCP - General Family Practice 12/29/17 05/21/[address] [address] Annette Alvarez, Nurse Practitioner Clinical Nurse 03/22/17 10/21/20 OPTOMETRIST ASSISTANT FORGING MACHINE HAND Specialist [address] [place] [address] Department Helper Dietitian, Registered 05/25/18 [facility] [place] [address] documented as of this encounter
--- OUTSIDE RECORDS SUMMARY | 2022-03-01 14:59 | XMS_ITS | Encounter Summary ---
:1965 Author Organization [place] Address [address] [facility] [place] [address] Care Team Providers Name Role Phone Lashae Alvarez APRN, CNP Unavailable [phone] Goran Lloyd Primary Care Provider Jocelyn Davidson RD Unavailable Reason for Visit Reason Comments Diabetes Thyroid Problem Encounter Details Date Type Department Care Team Description 04/16/2019 Office Visit [facility] Lashae Alvarez Uncontrolshilpa ed type 1 diabetes with renal manifestation (H) (Primary Dx); [facility] [place] KIM Monroe CNP Type 1 diabetes mellitus with complicati ons (H); [address] [facility] [id number] [place] [address] Uncontrolled type 1 diabetes mellitus wi th stage 3 chronic kidney disease (H); [place], [place] PCOS (p olycystic ovarian syndrome); [id number] Flatulence, eructation, and gas pain; [phone] Hypothyroidism due to acquired atrophy of thyroid; (Work) Abnormal weight gain Social History Tobacco Use Types Packs/Day Years Used Date Smoking Tobacco: Never Smokeless Tobacco: Never Alcohol Use Standard Drinks/Week Comments Yes 0 (1 standard drink = 0.6 oz pure alcoho l) rare Sex Assigned at Date Recorded Female 03/04/2020 12:33 PM TICKET COLLECTOR documented as of this encounter Last Filed Vital Signs Vital Sign Reading Time Taken Comments Blood Pressure 120/68 04/16/2019 1:18 PM TICKET COLLECTOR Pulse 76 04/16/2019 11:28 AM TICKET COLLECTOR Temperature 36.8 ??C (98.2 ??F) 04/16/2019 11:28 AM TICKET COLLECTOR Respiratory Rate - - Oxygen Saturation 94% 04/16/2019 11:28 AM TICKET COLLECTOR Inhaled Oxygen Concentration - - Weight 113.4 kg (250 lb) 04/16/2019 11:28 AM TICKET COLLECTOR Height - - Body Mass Index 34.38 [...] done if necessary. We appreciate your understanding. 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 Intimate partner violence: Fear of current or ex partner: Not on file Emotionally abused: Not on file Physically abused: Not on file Forced sexual activity: Not on file Other Topics Concern ??? Parent/sibling w/ CABG, IA or angioplasty before 65F 55M? Not Asked [...] More than 50% of the time spent with??Ms.??Mcneil??on counseling / coordinating her??care??and discussing the above plan of care. The patient indicates understanding of the above issues and agrees withthe plan set forth. ??Total face to face??time was 25??minutes. Follow-up: 3 months Lashae Alvarez NP Endocrinology [facility] CC: ET COLLECTOR documented in this encounter Miscellaneous Notes Result Encounter Note - Lashae Alvarez APRN CNP - 04/16/2019 11:30 AM TICKET COLLECTOR Marnie, Your thyroid labs are in normal [...] you have questions. Lashae Alvarez NP Endocrinology ET COLLECTOR Addendum Note - Lashae Alvarez APRN CNP - 04/16/2019 11:30 AM TICKET COLLECTOR Addended by: LASHAE ALVAREZ on: 04/18/2019 06:22 AM Modules accepted: Orders ET COLLECTOR documented in this encounter Plan of Treatment Not on filedocumented as of this encounter Procedures Procedure Name Priority Date/Time Associated Diagnosis Comme nts BASIC METABOLIC PANEL Routine 04/16/2019 11:27 Type 1 diabetes Results for this AM TICKET COLLECTOR mellitus with procedure are in complications (H) the result s section. TSH WITH FREE T4 Routine 04/16/2019 11:26 Uncontrolled type 1 Results for this REFLEX AM TICKET COLLECTOR diabetes with renal procedur e are in manifestation (H) the result s section. ALBUMIN RANDOM URINE Routine 04/16/2019 11:26 Uncontrolled typ e 1 Results for this QUANTITATIVE AM TICKET COLLECTOR diabetes with renal procedur e are in manifestation (H) the result s section. HEMOGLOBIN A1C Routine 04/16/2019 11:26 Uncontrolled type 1 Re sults for this AM TICKET COLLECTOR diabetes with renal procedur e are in manifestation (H) the result s section. documented in this encounter Results (ABNORMAL) Renal panel (Alb, BUN, Ca, Cl, CO2, Creat, Gluc, Phos, K, Na) (08/16/2019 5:57 PM CDT) Analysis Performed At Patho logist Time Signature Sodium 136 133 - 144 08/16/2019 [facility] mmol/L 6:32 PM [facility] Potassium 4.6 3.4 - 5.3 08/16/2019 [facility] mmol/L 6:32 PM [facility] Chloride 107 94 - 109 08/16/2019 [facility] mmol/L 6:32 PM [facility] Carbon Dioxide 24 20 - 32 08/16/2019 [facility] mmol/L 6:39 PM [facility] Anion Gap 5 3 - 14 08/16/2019 [facility] mmol/L 6:39 PM [facility] Glucose 166 (H) 70 - 99 08/16/2019 [facility] mg/dL 6:39 PM [facility] Urea Nitrogen 21 7 - 30 08/16/2019 [facility] mg/dL 6:39 PM [facility] Creatinine 1.41 (H) 0.52 - 08/16/2019 [facility] 1.04 mg/dL 6:39 PM [facility] GFR Estimate 42 (L) >60 08/16/2019 [facility] mL/min/{1. 6:39 PM [facility] 73_m2} [facility]OSP[facility] Comment: Non GFR Calc Starting 03/14/2018, serum creatinine ba sed estimated GFR (eGFR) will be calculated using the Chronic Kidney Dise banner Epidemiology Collaboration (CKD-EPI) equation. GFR Estimate If 49 (L) >60 mL/min/{1.73_m2} 08/16/2019 6: 39 PM [facility] Comment: GFR Calc Starting 03/14/2018, serum creatinine ba sed estimated GFR (eGFR) will be calculated using the Chronic Kidney Dise banner Epidemiology Collaboration (CKD-EPI) equation. Calcium 9.0 8.5 - 10.1 mg/dL 08/16/2019 6:39 PM CDT [facility] Phosphorus 3.4 2.5 - 4.5 mg/dL 08/16/2019 6:39 PM CDT [facility] Albumin 3.9 3.4 - 5.0 g/dL 08/16/2019 6:39 PM CDT [facility] Specimen Anatomical Collection Method Collection Time Receive d Time (Source) Location / / Volume Laterality Blood specimen 08/16/2019 5:57 PM 020 5:58 (specimen) CDT PM CDT Lashae Alvarez APRN, CNP LAB - BLOOD ORDERABLES Performing Organization Address City/[facility]/ZIP [facility] Phon e Number M [facility] [address] [place] [address] [facility] [address] [place], [place] [address], [facility] [phone] [address], [facility] [phone] [facility] Cortisol (08/16/2019 5:57 PM CDT) athologist Signature Cortisol Serum 14.2 4 - 22 08/16/2019 [facility] ug/dL 10:27 PM CDT [facility] Comment: 8 AM Cortisol Reference Range = 4-22 ug/ dL 4 PM Cortisol Reference Range = 3-17 ug/ dL Specimen Anatomical Collection Method Collection Time Receive d Time (Source) Location / / Volume Laterality Blood specimen 08/16/2019 5:57 PM 020 5:58 (specimen) CDT PM CDT Lashae Alvarez APRN, CNP LAB - BLOOD ORDERABLES Performing Organization Address City/State/ZIP Code Phon e Number [facility] [address] [place] [address] [facility] (ABNORMAL) Basic metabolic panel (04/16/2019 11:27 AM TICKET COLLECTOR) [facility] Method Time Signature Sodium 137 133 - 144 04/17/2019 [facility] mmol/L 7:36 AM [facility] Potassium 4.4 3.4 - 5.3 04/17/2019 [facility] mmol/L 7:36 AM [facility] Chloride 106 94 - 109 04/17/2019 [facility] mmol/L 7:36 AM [facility] Carbon Dioxide 27 20 - 32 04/17/2019 [facility] mmol/L 7:41 AM [facility] Anion Gap 4 3 - 14 04/17/2019 [facility] mmol/L 7:41 AM [facility] Glucose 219 (H) 70 - 99 04/17/2019 [facility] mg/dL 7:41 AM [facility] Urea Nitrogen 31 (H) 7 - 30 04/17/2019 [facility] mg/dL 7:41 AM [facility] Creatinine 1.64 (H) 0.52 - 04/17/2019 [facility] 1.04 7:41 AM [facility] mg/dL [facility] GFR Estimate 35 (L) >60 04/17/2019 [facility] mL/min/{1 7:41 AM [facility] .73_m2} [facility] Comment: Non GFR Calc Starting 03/14/2018, serum creatinine ba sed estimated GFR (eGFR) will be calculated using the Chronic Kidney Dise banner Epidemiology Collaboration (CKD-EPI) equation. GFR Estimate If 41 (L) >60 mL/min/{1.73_m2} 04/17/2019 7:41 AM [facility] Black [facility] Comment: GFR Calc Starting 03/14/2018, serum creatinine ba sed estimated GFR (eGFR) will be calculated using the Chronic Kidney Dise banner Epidemiology Collaboration (CKD-EPI) equation. Calcium 10.3 (H) 8.5 - 10.1 mg/dL 04/17/2019 7:41 AM [facility] Specimen Anatomical Collection Method Collection Time Receive d Time (Source) Location / / Volume Laterality Blood specimen 04/16/2019 11:27 0 1:14 (specimen) AM TICKET COLLECTOR PM TICKET COLLECTOR Lashae Alvarez APRN HOTEL CONCIERGE LAB - BLOOD ORDERABLES Performing Organization Address City/[facility]/ZIP Code Phon e Number [facility] [address], [place] [address] TSH with free T4 reflex (04/16/2019 11:26 AM TICKET COLLECTOR) athologist Signature TSH 1.18 0.40 - 4.00 04/17/2019 [facility] mU/L 8:25 AM [facility] Specimen Anatomical Collection Method Collection Time Receive d Time (Source) Location / / Volume Laterality Blood specimen 04/16/2019 11:26 0 (specimen) AM TICKET COLLECTOR 11:27 AM TICKET COLLECTOR Lashae Alvarez APRN HOTEL CONCIERGE LAB - BLOOD ORDERABLES Performing Organization Address City/[facility]/ZIP Code Phon e Number [facility] [address] [place] [address] Albumin Random Urine Quantitative with Creat Ratio (04/16/2019 11:26 AM TICKET COLLECTOR) athologist Signature Creatinine 121 mg/dL 04/17/2019 [facility] Urine 7:03 AM [facility] Albumin Urine 10 mg/L 04/17/2019 [facility] mg/L 7:14 AM [facility] Albumin Urine 7.86 0 - 25 04/17/2019 [facility] mg/g Cr mg/g Cr 7:14 AM [facility] Specimen Anatomical Collection Method Collection Time Receive d Time (Source) Location / / Volume Laterality Urine specimen 04/16/2019 11:26 0 (specimen) AM TICKET COLLECTOR 11:27 AM TICKET COLLECTOR Lashae Alvarez APRN HOTEL CONCIERGE LAB - URINE ORDERABLES Performing Organization Address City/[facility]/ZIP Code Phon e Number [facility] [address] [place] [address] (ABNORMAL) Hemoglobin A1c (04/16/2019 11:26 AM TICKET COLLECTOR) athologist Signature Hemoglobin A1C 7.4 (H) 0 - 5.6 % 04/16/2019 [facility] 11:42 AM TICKET COLLECTOR [facility] Comment: Normal <5.7% Prediabetes 5.7-6.4% ??Diab etes 6.5% or higher - adopted from ADA consensus guidelines. Specimen Anatomical Collection Method Collection Time Receive d Time (Source) Location / / Volume Laterality Blood specimen 04/16/2019 11:26 0 (specimen) AM TICKET COLLECTOR 11:27 AM TICKET COLLECTOR Lashae Alvarez CLIENT ADVOCATE HOTEL CONCIERGE LAB - BLOOD ORDERABLES Performing Organization Address City/State/ZIP Code Phon e Number [facility] [address] [place] [address] documented in this encounter Visit Diagnoses Diagnosis [...] gain documented in this encounter Care Teams Opener Tender Relationship Specialty Start Date End Date Goran Lloyd PCP - General Family Practice 12/29/17 05/21/[address] [address] Lashae Alvarez, Nurse Practitioner Clinical Nurse 03/22/17 10/21/20 CLIENT ADVOCATE HOTEL CONCIERGE Specialist [address] [place] [address] Haunted History Tour Guide Dietitian, Registered 05/25/18 [facility] [place] [address] documented as of this encounter
--- OUTSIDE RECORDS SUMMARY | 2022-03-01 14:59 | XMS_ITS | Encounter Summary ---
:1965 Author Organization [place] Address [address] [place] [address]. [place] [address] Care Team Providers Name Role Phone Annette Alvarez APRN DIRECTOR OF ADULT EPILEPSY Unavailable [phone] Goran Lloyd Primary Care Provider Jocelyn Davidson RD Unavailable Reason for Referral Diagnostic Imaging XR (Routine) - Closed Specialty Diagnoses / Procedures Referred By Contact Refer red To Contact Radiology. Diagnoses Positive QuantiFERON-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 Mj Tenorio MD Rh Xray Procedures XR Chest 1 View, [place] [address] [employer] [place] [address] [address] [place] [address] Phone: Fax: Referral ID Status Reason Start Date Expiration Date Visits Requ ested Visits Authorized [id number] Closed 08/24/2019 08/23/2020 1 1 Reason for Visit Diagnostic Imaging XR (Routine) - Closed Specialty Diagnoses / Procedures Referred By Contact Refer red To Contact Radiology. Diagnoses Positive QuantiFERON-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 Mj Tenorio MD Rh Xray Procedures XR Chest 1 View, [place] [address] [place] [address] [address] [place] [address] Phone: Fax: Referral ID Status Reason Start Date Expiration Date Visits Requ ested Visits Authorized [id number] Closed 08/24/2019 08/23/2020 1 1 Encounter Details Date Type Department Care Team Description 08/24/2019 Hospital Encounter [facility] Mj Tenorio Positive [facility] MD Olegario QuantiFERON-TB Gold [address] [facility] [address] test [facility] [phone] [place], [place] [phone] [id number] Social History Tobacco Use Types Packs/Day Years Used Date Smoking Tobacco: Never Smokeless Tobacco: Never Alcohol Use Standard Drinks/Week Comments Yes 0 (1 standard drink = 0.6 oz pure alcoho l) rare Sex Assigned at Date Recorded Female 03/04/2020 12:33 PM 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 COVID-19 Exposure Response Date Recorded In the [...] hours Using T:Connect: Yes Dexcom Sharing Code: [id number] insulin syringe-needle Use 1 syringe as 20 [...] osis documented in this encounter Care Teams Coding Analyst Relationship Specialty Start Date End Date Goran Lloyd PCP - General Family Practice 12/29/17 05/21/[address] [address] Annette Alvarez, Nurse Practitioner Clinical Nurse 03/22/17 10/21/20 PATIENT ACCOUNT SPECIALIST DIRECTOR OF ADULT EPILEPSY Specialist [address] [place], [place] [id number] Jocelyn Davidson RD Research Phlebotomist Dietitian, Registered 05/25/18 [facility] [address] [place] [address] SHARAN CARSON [id number] documented as of this encounter
--- OUTSIDE RECORDS SUMMARY | 2022-03-01 14:59 | XMS_ITS | Encounter Summary ---
:1965 Author Organization [place] Address [address] [facility] [place] [address] Care Team Providers Name Role Phone Annette Alvarezmamadou ALVAREZ NEW ACCOUNTS CLERK Unavailable Goran Lloyd Primary Care Provider Jocelyn Davidson RD Unavailable Encounter Details Date Type Department Care Team Description 08/16/2019 Hospital Encounter [facility] Goran Lloyd [facility] [address] [place] [address] Uncontrolled type 1 diabetes with renal manifestation (H); [facility] [place] Annette KIM Monroe NEW ACCOUNTS CLERK [address] [place], [place] [id number] Abnormal weight gain [address] [place] [address] Social History Tobacco Use Types Packs/Day Years Used Date Smoking Tobacco: Never Smokeless Tobacco: Never Alcohol Use Standard Drinks/Week Comments Yes 0 (1 standard drink = 0.6 oz pure alcoho l) rare Sex Assigned at Date Recorded Female 03/04/2020 12:33 PM LEARNING SUPPORT AIDE COVID-19 Exposure Response Date Recorded In the [...] hours Using T:Connect: Yes Dexcom Sharing Code: [id number] insulin syringe-needle Use 1 syringe as 20 [...] 08/16/2019 [facility] ug/dL 10:27 PM CDT [facility] Comment: 8 AM Cortisol Reference [...] Phon e Number [facility] [address] [place] [address] [facility] (ABNORMAL) Renal panel (Alb, BUN, Ca, Cl, CO2, Creat, Gluc, Phos, K, Na) (08/16/2019 5:57 PM [facility]) Analysis Performed At [facility] Time Signature Sodium 136 133 - 144 08/16/2019 [place] mmol/L 6:32 PM [facility] Potassium 4.6 3.4 - 5.3 08/16/2019 [facility] mmol/L 6:32 PM [facility] Chloride 107 94 - 109 08/16/2019 [facility] mmol/L 6:32 PM [facility] Carbon Dioxide 24 20 - 32 08/16/2019 [facility] mmol/L 6:39 PM [facility] Anion Gap 5 3 - 14 08/16/2019 [place] mmol/L 6:39 PM [facility] Glucose 166 (H) 70 - 99 08/16/2019 [place] mg/dL 6:39 PM [facility] Urea Nitrogen 21 7 - 30 08/16/2019 [place] mg/dL 6:39 PM [facility] Creatinine 1.41 (H) 0.52 - 08/16/2019 [facility] 1.04 mg/dL 6:39 PM [facility] GFR Estimate 42 (L) >60 08/16/2019 [place] mL/min/{1. 6:39 PM [facility] 73_m2} [facility] Comment: Non GFR Calc Starting 03/14/2018, serum creatinine ba sed estimated GFR (eGFR) will be calculated using the Chronic Kidney Dise [facility] Epidemiology Collaboration (CKD-EPI) equation. GFR Estimate If 49 (L) >60 mL/min/{1.73_m2} 08/16/2019 6: 39 PM [place] Black [facility] Comment: GFR Calc Starting 03/14/2018, serum creatinine ba sed estimated GFR (eGFR) will be calculated using the Chronic Kidney Dise [facility] Epidemiology Collaboration (CKD-EPI) equation. Calcium 9.0 8.5 - 10.1 mg/dL 08/16/2019 6:39 PM [facility] Phosphorus 3.4 2.5 - 4.5 mg/dL 08/16/2019 6:39 PM [facility] Albumin 3.9 3.4 - 5.0 g/dL 08/16/2019 6:[address] [facility] Specimen Anatomical Collection Method Collection Time Receive d Time (Source) Location / / Volume Laterality Blood specimen 08/16/2019 5:57 PM 020 5:58 (specimen) CDT PM CDT Annette Alvarez APRN NEW ACCOUNTS CLERK LAB - BLOOD ORDERABLES Performing Organization Address City/State/ZIP Code Phon e Number M [facility] [address] [phone] [facility] [address] [place], [place] [address], [facility] [phone] [facility] [address] [phone], [facility] documented in this encounter Visit Diagnoses Diagnosis Uncontrolled type 1 diabetes with renal manifestation Type I (juvenile type) diabetes mellitus with renal manifestations, uncontrolled Abnormal weight gain documented in this encounter Care Teams Piano Technician Relationship Specialty Start Date End Date Goran Lloyd PCP - General Family Practice 12/29/17 05/21/[address] [address] Annette Alvarez, Nurse Practitioner Clinical Nurse 03/22/17 10/21/20 INSPECTOR WATCH TRAIN NEW ACCOUNTS CLERK Specialist [address] [place] [address] Field Services Analyst Dietitian, Registered 05/25/18 [facility] [place] [address] [place] [address] [place] [address] documented as of this encounter
--- OUTSIDE RECORDS SUMMARY | 2022-03-01 14:59 | XMS_ITS | Encounter Summary ---
:1965 Author Organization [place] Address [address] [facility] [place] [address] Care Team Providers Name Role Phone Annette Alvarez APRN BENCH MOLDER Unavailable Goran Lloyd Primary Care Provider Jocelyn Davidson RD Unavailable Reason for Visit Reason Onset Date Comments Diabetes 01/25/2020 Encounter Details Date Type Department Care Team Description 01/25/2020 Telephone [facility] Annette Alvarez, Diabetes [place] BULK SEALER BENCH MOLDER [address] [phone] [place] [address] (Wo rk) Social History Tobacco Use Types Packs/Day Years Used Date Smoking Tobacco: Never Smokeless Tobacco: Never Alcohol Use Standard Drinks/Week Comments Yes 0 (1 standard drink = 0.6 oz pure alcoho l) rare Sex Assigned at Date Recorded Female 03/04/2020 12:33 PM MECHANICAL CAD DRAFTER documented as of this encounter Miscellaneous Notes Telephone Encounter - Annette Alvarez APRN BENCH MOLDER - 01/25/2020 3:46 PM CDT Pump download [...] a day ? Annette Alvarez NP Endocrinology ANICAL CAD DRAFTER Telephone Encounter - Mimi Cyr CMA - [...] filedocumented in this encounter Care Teams Manager Intern Relationship Specialty Start Date End Date Goran Lloyd PCP - General Family Practice 12/29/17 05/21/20 [facility] [address] [place] [address] Annette Alvarez, Nurse Practitioner Clinical Nurse 03/22/17 10/21/20 KIM BENCH MOLDER Specialist [address] [place] [address] Therapeutic Activities Services Worker Dietitian, Registered 05/25/18 [facility] [address] [place] [address] SHAR[place] CAR[place] [phone] documented as of this encounter
--- OUTSIDE RECORDS SUMMARY | 2022-03-01 14:59 | XMS_ITS | Encounter Summary ---
:1965 Author Organization [place] Address [address] [facility] [place] [address] Care Team Providers Name Role Phone Annette Alvarezmamadou ALVAREZ HIGH FREQUENCY MILL OPERATOR Unavailable Goran Lloyd Primary Care Provider Jocelyn Davidson RD Unavailable Reason for Visit Reason Comments Diabetes Encounter Details Date Type Department Care Team Description 11/22/2019 Office Visit [facility] AlvarezAnnette Type 1 rohan sy[facility] [place] KIM Monroe HIGH FREQUENCY MILL OPERATOR with complications (H) [address] [facility] [id number] [place] [address] (Primary Dx) [place] [address] [phone] Social History Tobacco Use Types Packs/Day Years Used Date Smoking Tobacco: Never Smokeless Tobacco: Never Alcohol Use Standard Drinks/Week Comments Yes 0 (1 standard drink = 0.6 oz pure alcoho l) rare Sex Assigned at Date Recorded Female 03/04/2020 12:33 PM NEGATIVE RETOUCHER documented as of this encounter Last Filed [...] documented in this encounter Care Teams Gun Stock Maker Relationship Specialty Start Date End Date Goran Lloyd PCP - General Family Practice 12/29/17 05/21/[address] [address] Annette Alvarez, Nurse Practitioner Clinical Nurse 03/22/17 10/21/20 KIM HIGH FREQUENCY MILL OPERATOR Specialist [address] [place] [address] Crown Ironer Operator Dietitian, Registered 05/25/18 J[facility] [place] [address] documented as of this encounter
--- OUTSIDE RECORDS SUMMARY | 2022-03-01 14:59 | XMS_ITS | Encounter Summary ---
:1965 Author Organization [place] Address [address] [facility] [place] [address] Care Team Providers Name Role Phone Annette Alvarez APRN STACK ATTENDANT Unavailable [phone] Goran Lloyd Primary Care Provider Jocelyn Davidson RD Unavailable Reason for Visit Reason Onset Date Comments Medication Refill 12/16/2018 NOVOLOG VIAL 100 UNI T/ML soln Encounter Details Date Type Department Care Team Description 12/16/2018 Refill [facility] Annette Alvarez, Medication Refill Maricarmen ALVAREZ STACK ATTENDANT (NOVOLOG VIAL 100 [address] [place] [address]/ML soln) [place], [place] [address] [address] [place] [address] [phone] Social History Tobacco Use Types Packs/Day Years Used Date Smoking Tobacco: Never Smokeless Tobacco: Never Alcohol Use Standard Drinks/Week Comments Yes 0 (1 standard drink = 0.6 oz pure alcoho l) rare Sex Assigned at Date Recorded Female 03/04/2020 12:33 PM LINK AND LINK KNITTING MACHINE OPERATOR documented as of this encounter [...] ovaries documented in this encounter Care Teams Consumer Advocate Relationship Specialty Start Date End Date Goran Lloyd PCP - General Family Practice 12/29/17 05/21/[address] [address] Annette Alvarez, Nurse Practitioner Clinical Nurse 03/22/17 10/21/20 FINAL ASSEMBLER BOAT STACK ATTENDANT Specialist [address] [place], [place] [phone] Jocelyn Davidson RD Lube Technician Dietitian, Registered 05/25/18 JET [place] [facility] [place] [address] documented as of this encounter
--- OUTSIDE RECORDS SUMMARY | 2022-03-01 14:59 | XMS_ITS | Encounter Summary ---
:1965 Author Organization [place] Address [address] [place] [address]. [place] [address] Care Team Providers Name Role Phone Annette Alvarez APRN SECRET CODE EXPERT Unavailable Goran Lloyd Primary Care Provider Jocelyn Davidson RD Unavailable Encounter Details Date Type Department Care Team Description 08/02/2018 Travel Social History Tobacco Use Types Packs/Day Years Used Date Smoking Tobacco: Never Smokeless Tobacco: Never Alcohol Use Standard Drinks/Week Comments Yes 0 (1 standard drink = 0.6 oz pure alcoho l) rare Sex Assigned at Date Recorded Female 03/04/2020 12:33 PM ICT DEVELOPMENT MANAGER documented as of this encounter Plan of Treatment Not on filedocumented as of this encounter Visit Diagnoses Not on filedocumented in this encounter Care Teams Core Layer Machine Operator Relationship Specialty Start Date End Date Goran Lloyd PCP - General Family Practice 12/29/17 05/21/20 [facility] [address] [place] [address] Annette Alvarez, Nurse Practitioner Clinical Nurse 03/22/17 10/21/20 ENROLLMENT ADVISOR SECRET CODE EXPERT Specialist [address] [place], [place] [phone] Jocelyn Davidson RD Salvage Repairer Dietitian, Registered 05/25/[address] [address] documented as of this encounter
--- OUTSIDE RECORDS SUMMARY | 2022-03-01 15:00 | XMS_ITS | Encounter Summary ---
:1965 Author Organization [place] Address [address] [place] [address]. [place] [address] Care Team Providers Name Role Phone Annette Alvarez APRN BELT BUILDER HELPER Unavailable Goran Lloyd Primary Care Provider Jocelyn Davidson RD Unavailable Encounter Details Date Type Department Care Team Description 07/19/2018 Travel Social History Tobacco Use Types Packs/Day Years Used Date Smoking Tobacco: Never Smokeless Tobacco: Never Alcohol Use Standard Drinks/Week Comments Yes 0 (1 standard drink = 0.6 oz pure alcoho l) rare Sex Assigned at Date Recorded Female 03/04/2020 12:33 PM FELT PULLER documented as of this encounter Plan of Treatment Not on filedocumented as of this encounter Visit Diagnoses Not on filedocumented in this encounter Care Teams Machine Presser Relationship Specialty Start Date End Date Goran Lloyd PCP - General Family Practice 12/29/17 05/21/20 [facility] [address] [place] [address] Annette Alvarez, Nurse Practitioner Clinical Nurse 03/22/17 10/21/20 CYBER FORENSIC SPECIALIST BELT BUILDER HELPER Specialist [address] [place], [place] [phone] Jocelyn Davidson RD Rn Iv Therapy Dietitian, Registered 05/25/[address] [address] documented as of this encounter
--- OUTSIDE RECORDS SUMMARY | 2022-03-01 15:00 | XMS_ITS | Encounter Summary ---
:1965 Author Organization [place] Address [address] [place] [address]. [place] [address] Care Team Providers Name Role Phone Annette Alvarez KIM RODRIGUEZ Unavailable [phone] Goran Lloyd Primary Care Provider Reason for Visit Reason Onset Date Comments Patient Request for Note/Letter 01/04/2018 patient requesting letter to DM Encounter Details Date Type Department Care Team Description 01/04/2018 Telephone [facility] Annette Alvarez Patient Re quest for Clinic [place] KIM Monroe CNP Note/Letter (patient [id number] [facility] [id number] [place] [address] requesting letter to [facility]) [phone] [phone] Social History Tobacco Use Types Packs/Day Years Used Date Smoking Tobacco: Never Smokeless Tobacco: Never Alcohol Use Standard Drinks/Week Comments Yes 0 (1 standard drink = 0.6 oz pure alcoho l) rare Sex Assigned at Date Recorded Female 03/04/2020 12:33 PM ALTO SINGER documented as of this encounter Miscellaneous Notes [...] for patient to call back to the [facility]. Need to inform of all recommendations [...] while driving. 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 Her blood sugar dropped while driving home. She was driving [employer] [facility] and 911 was called by several people. She eventually ended up driving thewrong way on a one way. Police were able to get her to seedling puller and determined her BG was in the 20's and were able to treat her. Patient saw her primary outside of [place] so there is no documentation in her [place] chart. The letter written by her primary has not been accepted by the [place] Department [employer] Public Safety. Patient was pulled over yesterday and was told by the officer that her license is under suspension. Patient has until 01/13/18 to submit a letter from her doctor stating that her diabetes is under goodcontrol, that she is safe to drive and is currently under the care of a physician/provider for her diabetes. The letter needs to be on [place] Letterhead and needs to have the providers [...] is able to drive. Please call patient [phone]. Andreina Falcon Construction Representative documented in this encounter Plan of Treatment Not on filedocumented as of this encounter Visit Diagnoses Not on filedocumented in this encounter Care Teams Pot Fluxer Relationship Specialty Start Date End Date Ailabouni, Goran PCP - General Family Practice 12/29/17 05/21/[address] [address] Annette Alvarez, Nurse Practitioner Clinical Nurse Specialist 10/21/20 AUTOMOTIVE SHOP FOREMAN SHEET METAL LAYOUT WORKER [address] [place] [address] documented as of this encounter
--- OUTSIDE RECORDS SUMMARY | 2022-03-01 15:00 | XMS_ITS | Encounter Summary ---
:1965 Author Organization [place] Address [address] [place] [address] Care Team Providers Name Role Phone Annette Alvarez APRN ONLINE ADVERTISING MANAGER Unavailable [phone] Goran Lloyd Primary Care Provider Jocelyn Davidson RD Unavailable Reason for Visit Reason Onset Date Comments Forms 05/26/2018 Tandem pump Encounter Details Date Type Department Care Team Description 05/26/2018 Telephone [facility] Jocelyn Davidson, RENATA Forms (Tandem pump) [address] [phone] Social History Tobacco Use Types Packs/Day Years Used Date Smoking Tobacco: Never Smokeless Tobacco: Never Alcohol Use Standard Drinks/Week Comments Yes 0 (1 standard drink = 0.6 oz pure alcoho l) rare Sex Assigned at Date Recorded Female 03/04/2020 12:33 PM CAPTAIN/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 Patient filled out Tandem AOB after CDE visit 05/25/18. Forms faxed on 05/26/18- follow up e-mail also sent to Barber Corona and Michelle Mary at [facility]. Original forms with Mimi Cyr MA/ Annette Alvarez NP. Nautal message sent to Marnie as fyi. Jocelyn Davidson RD, CDE Diabetes Residential Counselor AIN/CHECK AIRMAN documented in this encounter Plan of Treatment Not on filedocumented as of this encounter Visit Diagnoses Not on filedocumented in this encounter Care Teams Prep Manager Relationship Specialty Start Date End Date Goran Lloyd PCP - General Family Practice 12/29/17 05/21/20 [facility] [address] [place] [address] Annette Alvarez, Nurse Practitioner Clinical Nurse 03/22/17 10/21/20 PILE HEADER ONLINE ADVERTISING MANAGER Specialist [address] [place] [address] Staffing And Scheduling Coordinator Dietitian, Registered 05/25/18 [facility] Kaleigh [place] [facility] [place] [address] documented as of this encounter
--- OUTSIDE RECORDS SUMMARY | 2022-03-01 15:00 | XMS_ITS | Encounter Summary ---
:1965 Author Organization [place] Address [address] [facility] [place] [address] Care Team Providers Name Role Phone Annette Alvarezmamadou ALVAREZ CHILD CAREGIVER PRIVATE HOME Unavailable [phone] Goran Lloyd Primary Care Provider Jocelyn Davidson RD Unavailable Reason for Visit Reason Onset Date Comments Forms 06/27/2018 [facility] t-slim reques t Encounter Details Date Type Department Care Team Description 06/27/2018 Telephone [facility] Annette Alvarez Forms ([facility] t-slim [facility] [place] KIM Monroe CHILD CAREGIVER PRIVATE HOME request) [address] [address] [phone] Social History Tobacco Use Types Packs/Day Years Used Date Smoking Tobacco: Never Smokeless Tobacco: Never Alcohol Use Standard Drinks/Week Comments Yes 0 (1 standard drink = 0.6 oz pure alcoho l) rare Sex Assigned at Date Recorded Female 03/04/2020 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 Patient notified via MyChart. Mimi Cyr CMA on 06/29/2018 at 11:10AM Telephone Encounter - Annette Alvarez APRN CNP - 06/28/2018 1:34 PM CDT Form completed and signed. Annette Alvarez NP Endocrinology Telephone Encounter - Mimi Cyr CMA - 06/27/2018 10:04 AM CDT Received Statement of Medical Necessity and Prescription Order form from [facility] for a T-slim insulinpump. Dx: E10.65 [facility] Diabetes Care Team ph# [phone] opt.2 . Fax completed form and recent diabetic chart notes that state patient is actively using or has been recommended the use of an insulin pump and completed a diabetes education program (REQUIRED) to #[phone]. Form on Annette Alvarez's desk. Mimi Cyr M.A. documented in this encounter Plan of Treatment Not on filedocumented as of this encounter Visit Diagnoses Not on filedocumented in this encounter Care Teams Assembler Faucets Relationship Specialty Start Date End Date Goran Lloyd PCP - General Family Practice 12/29/17 05/21/20 [facility] [address] [place] [address] Annette Alvarez, Nurse Practitioner Clinical Nurse 03/22/17 10/21/20 MANAGER PROCESS EXCELLENCE CHILD CAREGIVER PRIVATE HOME Specialist [address] [place] [address] Sales And Support Center Agent Dietitian, Registered 05/25/18 [facility] [place] [address] [place] [address] [place] [address] documented as of this encounter
--- OUTSIDE RECORDS SUMMARY | 2022-03-01 15:00 | XMS_ITS | Encounter Summary ---
:1965 Author Organization [place] Address [address] [facility] [place] [address] Care Team Providers Name Role Phone Annette Alvarez APRN FILLING STATION LABORER Unavailable [phone] Goran Lloyd Primary Care Provider Jocelyn Davidson RD Unavailable Reason for Visit Reason Onset Date Comments Erroneous encounter-disregard 07/28/2018 Encounter Details Date Type Department Care Team Description 07/28/2018 Telephone [facility] Jocelyn Davidson RD Erroneous Clinic [facility] [place] encounter-disregard [address] [place] [address] [address] [place] [address] Social History Tobacco Use Types Packs/Day Years Used Date Smoking Tobacco: Never Smokeless Tobacco: Never Alcohol Use Standard Drinks/Week Comments Yes 0 (1 standard drink = 0.6 oz pure alcoho l) rare Sex Assigned at Date Recorded Female 03/04/2020 12:33 PM COW TESTER documented as of this encounter Plan of Treatment Not on filedocumented as of this encounter Visit Diagnoses Diagnosis Type 1 diabetes mellitus with complicati ons (H) Uncontrolled type 1 diabetes mellitus wi th stage 3 chronic kidney disease Type I (juvenile type) diabetes mellitus with renal manifestations, uncontrolled PCOS (polycystic ovarian syndrome) Polycystic ovaries documented in this encounter Care Teams Social Service Coordinator Relationship Specialty Start Date End Date Goran Lloyd PCP - General Family Practice 12/29/17 05/21/[address] [address] Annette Alvarez, Nurse Practitioner Clinical Nurse 03/22/17 10/21/20 LAUNDERETTE ATTENDANT FILLING STATION LABORER Specialist [address] [place], [place] [phone] Jocelyn Davidson RD Engineering And Operations Director Dietitian, Registered 05/25/18 [facility] [place] [address] documented as of this encounter
--- OUTSIDE RECORDS SUMMARY | 2022-03-01 15:00 | XMS_ITS | Encounter Summary ---
:1965 Author Organization [place] Address [address] [place] [address]. [place] [address] Care Team Providers Name Role Phone No Ref-Primary, Physician Primary Care Provider [phone] Annette Alvarez GENERAL OPERATIONS AGENT RAT BREEDER Unavailable [phone] Reason for Visit Reason Onset Date Comments Refill Request 11/09/2017 levothyroxine (SYNTH ROID/LEVOTHROID) 175 MCG tablet Refill Request 11/09/2017 pregabalin (LYRICA) 75 MG capsule Encounter Details Date Type Department Care Team Description 11/09/2017 Refill [facility] Annette Alvarez, Refill Request [place] GENERAL OPERATIONS AGENT RAT BREEDER (levothyroxine [address] [facility] [address] [facility] (SYNTHROID/LEVOTHROID) [place], [place] 175 MCG tablet); Refill [phone] Request (pregabalin [phone] (Wo rk) (LYRICA) 75 MG capsule) Social History Tobacco Use Types Packs/Day Years Used Date Smoking Tobacco: Never Smokeless Tobacco: Never Alcohol Use Standard Drinks/Week Comments Yes 0 (1 standard drink = 0.6 oz pure alcoho l) rare Sex Assigned at Date Recorded Female 03/04/2020 12:33 PM INFANTRY 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 documented as of this encounter Miscellaneous Notes [...] CDT [facility] Visit with [facility] [address] [phone] 84 tablet 1 Sig: Take one tablet [...] CDT Return Visit with Yina Moss MD [facility] [address] [place] [address] [facility] [phone] 180 capsule 1 Sig: Take 1 capsule (75 mg) by mouth 2 times daily There is no refill protocol information for this order documented in this encounter Plan of Treatment Not on filedocumented as of this encounter Visit Diagnoses Diagnosis 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
--- OUTSIDE RECORDS SUMMARY | 2022-03-01 15:00 | XMS_ITS | Encounter Summary ---
:1965 Author Organization [place] Address [address] [facility] [place] [address] Care Team Providers Name Role Phone Annette Alvarez ASSOCIATE DATA SCIENTIST CULINARY ARTS INSTRUCTOR Unavailable Goran Lloyd Primary Care Provider Jocelyn Davidson RD Unavailable Tamar Murphy ASSOCIATE DATA SCIENTIST CULINARY ARTS INSTRUCTOR Unavailable Nikita Gabmle Primary Care Provider Encounter Details Date Type Department Care Team Description 07/07/2018 Records - [facility] CONVERSION Provider, Paul massey Social History Tobacco Use Types Packs/Day Years Used Date Smoking Tobacco: Never Smokeless Tobacco: Never Alcohol Use Standard Drinks/Week Comments Yes 0 (1 standard drink = 0.6 oz pure alcoho l) rare Sex Assigned at Date Recorded Female 03/04/2020 12:33 PM REVENUE COORDINATOR COVID-19 Exposure Response Date Recorded In the last month, have you been in contact with No / Unsure 03/05/2020 11:41 AM REVENUE COORDINATOR someone who was confirmed or suspected to have Coronavirus / COVID-19? documented as of this encounter Plan of Treatment Not on filedocumented as of this encounter Visit Diagnoses Not on filedocumented in this encounter Additional Health Concerns Infection Onset Date Last Indicated Resolved Time Rule Out COVID-19 02/26/2020 02/26/2020 02/27/2020 4:3 2 PM REVENUE COORDINATOR documented as of this encounter Care Teams Cardiac Rehab Nurse Relationship Specialty Start Date End Date PremaGoran PCP - General Family Practice 12/29/17 05/21/20 [facility] [address] [place] [address] Nikita Gamble PCP - General Family Medicine 05/26/20 [facility] [address] [place] [address] Annette Alvarez, Nurse Practitioner Clinical Nurse 03/22/17 10/21/20 ASSOCIATE DATA SCIENTIST CULINARY ARTS INSTRUCTOR Specialist [address] [place], [place] [id number] Jocelyn Davidson RD Biology Specialist Dietitian, Registered 05/25/18 [facility] [address] [place] [address] [place] [address] Tamar Murphy APRN Assigned PCP 02/08/20 1 CULINARY ARTS INSTRUCTOR [address] [place] [address] documented as of this encounter
--- OUTSIDE RECORDS SUMMARY | 2022-03-01 15:00 | XMS_ITS | Encounter Summary ---
:1965 Author Organization [place] Address [address] [facility] [place] [address] Care Team Providers Name Role Phone Annette Alvarezmamadou ALVAREZ LINER HELPER Unavailable [phone] Goran Lloyd Primary Care Provider Reason for Visit Reason Onset Date Comments Forms 01/26/2018 DMV form insulin dep endent Encounter Details Date Type Department Care Team Description 01/26/2018 Telephone [facility] Annette Alvarez Forms (DMV form insulin Clinic [place] KIM Monroe LINER HELPER dependent) [address] [place] [id number] [phone] Social History Tobacco Use Types Packs/Day Years Used Date Smoking Tobacco: Never Smokeless Tobacco: Never Alcohol Use Standard Drinks/Week Comments Yes 0 (1 standard drink = 0.6 oz pure alcoho l) rare Sex Assigned at Date Recorded Female 03/04/2020 12:33 PM PROFILER OPERATOR documented as of this encounter Miscellaneous Notes Telephone Encounter - Mimi Cyr CMA - 01/26/2018 1:32 PM CDT Insulin-Treated Diabetes Mellitus Report form completed and faxed to the [place] [employer] at fax# [phone]. (ph#[phone]) Original given to patient. Copy sent to abstracting to be entered into the EMR. Mimi Cyr M.A. documented in this encounter Plan of Treatment Not on filedocumented as of this encounter Visit Diagnoses Not on filedocumented in this encounter Care Teams Hot Metal Charger Relationship Specialty Start Date End Date Goran Lloyd PCP - General Family Practice 12/29/17 05/21/[address] [address] Annette Alvarez, Nurse Practitioner Clinical Nurse Specialist 10/21/20 PHOTOLETTERING MACHINE OPERATOR LINER HELPER [address] [place] [address] documented as of this encounter
--- OUTSIDE RECORDS SUMMARY | 2022-03-01 15:00 | XMS_ITS | Encounter Summary ---
:1965 Author Organization [place] Address [address] [place] [address]. [place] [address] Care Team Providers Name Role Phone Annette Alvarez APRN TENNIS BALL COVER CEMENTER Unavailable [phone] Goran Lloyd Primary Care Provider Reason for Visit Reason Comments Medication Refill NOVOLOG FLEXPEN 100 UNIT/ML soln Encounter Details Date Type Department Care Team Description 05/10/2018 Refill [facility] Annette Alvarez, Medication Refill [place] DEICER REPAIRER PNEUMATIC TENNIS BALL COVER CEMENTER (NOVOLOG FLEXPEN 100 [address] [facility] [id number] [place] [address] AV UNIT/ML soln) [place] [address] [phone] (Wo rk) Social History Tobacco Use Types Packs/Day Years Used Date Smoking Tobacco: Never Smokeless Tobacco: Never Alcohol Use Standard Drinks/Week Comments Yes 0 (1 standard drink = 0.6 oz pure alcoho l) rare Sex Assigned at Date Recorded Female 03/04/2020 12:33 PM LAUNCH CHECK OUT documented as of this encounter Miscellaneous Notes Telephone Encounter - Maye Souza RN - 05/12/2018 2:10 PM CST [facility] calling. Need to add max total daily dose. .kf CH CHECK OUT Telephone Encounter - Annette Alvarez APRN CNP - 05/12/2018 1:46 PM LAUNCH CHECK OUT Please call and have her schedule a follow up visit. Annette Alvarez NP Endocrinology CH CHECK OUT Telephone Encounter - Maye Souza RN - 05/12/2018 9:37 AM CST Images from the original note were not included. Failing below. No upcoming appt. No showed 04/19/18 appt, cancelled 03/30/18 appt. Frequently no shows or cancels. No show rate is 56%. Sent to provider. Please advise and route back to Mimi to [facility]. Maye Souza RN Short Acting Insulin Protocol Failed05/11 5:14 PM LDL on file in past 12 months HgbA1C in past 3 or 6 months CH CHECK OUT Telephone Encounter - GambleLeslie - 05/11/2018 5:13 [...] & Orders section of the refill encounter. CH CHECK OUT documented in this encounter Plan of Treatment Not on filedocumented as of this encounter Visit Diagnoses Diagnosis Type 1 diabetes mellitus with complicati ons (H) Uncontrolled type 1 diabetes mellitus wi th stage 3 chronic kidney disease Type I (juvenile type) diabetes mellitus with renal manifestations, uncontrolled PCOS (polycystic ovarian syndrome) Polycystic ovaries documented in this encounter Care Teams Early Childhood Lead Teacher Relationship Specialty Start Date End Date Goran Lloyd PCP - General Family Practice 12/29/17 05/21/20 [facility] [address] [place] [address] Annette Alvarez, Nurse Practitioner Clinical Nurse Specialist 10/21/20 DEICER REPAIRER PNEUMATIC TENNIS BALL COVER CEMENTER [address] [place] [address] documented as of this encounter
--- OUTSIDE RECORDS SUMMARY | 2022-03-01 15:00 | XMS_ITS | Encounter Summary ---
:1965 Author Organization [place] Address [address] [place] [address]. [place] [address] Care Team Providers Name Role Phone Annette Alvarez APRN, CNP Unavailable [phone] Goran Lloyd Primary Care Provider Reason for Referral Patient Education - Closed Specialty Diagnoses / Procedures Referred By Contact Refer red To Contact Diagnoses Type 1 diabetes mellitus with complications (H) Annette Alvarez [facility] KIM GROUP ACTIVITIES AIDE [facility] [address] [phone] Referral ID Status Reason Start Date Expiration Date Visits Requ ested Visits Authorized [id number] Closed 12/29/2017 12/29/2018 1 1 Reason for Visit Reason Comments Diabetes Flu Shot Encounter Details Date Type Department Care Team Description 12/29/2017 Office Visit [facility] Annette Nuñez Type 1 rohan garcia mellitus with complications (H) (Primary Dx); [facility] [place]N CNP Need for prophylactic vaccination and in oculation against influenza; [address] Uncontrolled type 1 diabetes mellitus wi th stage 3 chronic kidney disease (H); [place], [place] PCOS (p olycystic ovarian syndrome); [phone] 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 Prevention: Flu Shot- Pneumovax- recommended Opthalmology-yes [...] RECOMBINANT VÁSQUEZ , IM (FluBlok, egg free) [19324]- >18 YRS (FMG [id number] YRS) ??? Vaccine Administration, Initial [25692] ??? Albumin Random Urine Quantitative with Creat Ratio ??? TYPE COPYIST REFERRAL Radiology/Consults ordered today: All questions were answered. The patient indicates understanding of the above issues and agrees withthe plan set forth. Total face to face time greater than or equal to 25 minutes. Follow-up: 3 month Annette Alvarez NP Endocrinology [facility] CC: documented in this encounter Plan [...] with Creat Ratio (12/29/2017 5:43 PM CDT) [facility] Method Time Signature Creatinine 56 mg/dL 12/30/2017 [place] Urine 4:37 PM CDT CLINICS [facility] Albumin Urine <5 mg/L 12/30/2017 [place] mg/L 4:37 PM CDT CL[facility]ICS [facility] Albumin Urine Unable to 0 - 25 12/30/2017 [place] mg/g Cr calculate due mg/g Cr 4:37 PM CDT CLINICS to low value [facility] Specimen Anatomical Collection Method Collection Time Receive d Time (Source) Location / / Volume Laterality Urine specimen 12/29/2017 5:43 PM 018 5:44 (specimen) CDT PM CDT Annette Alvarez CLAIM TECHNICIAN GROUP ACTIVITIES AIDE LAB - URINE ORDERABLES Performing Organization Address City/State/ZIP Code Phon e Number [facility] [address] [place] [address] documented in this encounter Visit Diagnoses Diagnosis [...] thyroid documented in this encounter Care Teams Tumbler Operator Relationship Specialty Start Date End Date Goran Lloyd PCP - General Family Practice 12/29/17 05/21/20 [facility] [address] [place] [address] Annette Alvarez, Nurse Practitioner Clinical Nurse Specialist 10/21/20 CLAIM TECHNICIAN GROUP ACTIVITIES AIDE [address] [place] [address] documented as of this encounter
--- OUTSIDE RECORDS SUMMARY | 2022-03-01 15:00 | XMS_ITS | Encounter Summary ---
:1965 Author Organization [place] Address [address] [place] [address]. [place] [address] Care Team Providers Name Role Phone Antonio Annette Mabel AUTOMOTIVE TITLE CLERK PLANNING LEAD Unavailable [phone] Goran Lloyd Primary Care Provider Reason for Visit Reason Comments Medication Refill Encounter Details Date Type Department Care Team Description 01/12/2018 Refill [facility] Annette Alvarez, Medication Refill [place] AUTOMOTIVE TITLE CLERK PLANNING LEAD [address] [phone] [place] [address] (Wo rk) Social History Tobacco Use Types Packs/Day Years Used Date Smoking Tobacco: Never Smokeless Tobacco: Never Alcohol Use Standard Drinks/Week Comments Yes 0 (1 standard drink = 0.6 oz pure alcoho l) rare Sex Assigned at Date Recorded Female 03/04/2020 12:33 PM 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
--- OUTSIDE RECORDS SUMMARY | 2022-03-01 15:00 | XMS_ITS | Encounter Summary ---
:1965 Author Organization [place] Address [address] [facility] [place] [address] Care Team Providers Name Role Phone Annette Alvarez APRN DRILL PRESS HAND Unavailable Goran Lloyd Primary Care Provider Jocelyn Davidson RD Unavailable Reason for Visit Reason Onset Date Comments Patient/info Update 08/01/2018 new pump Encounter Details Date Type Department Care Team Description 08/01/2018 Telephone [facility] Jocelyn Davidson, RENATA Patient/info Update [facility] (new pump) [address] [place] [phone] Social History Tobacco Use Types Packs/Day Years Used Date Smoking Tobacco: Never Smokeless Tobacco: Never Alcohol Use Standard Drinks/Week Comments Yes 0 (1 standard drink = 0.6 oz pure alcoho l) rare Sex Assigned at Date Recorded Female 03/04/2020 12:33 PM CATH LAB TECHNOLOGIST documented as of this encounter Miscellaneous Notes [...] needs her settings. Please advise Ilda Smith Recreation Technician documented in this encounter Plan of Treatment Not on filedocumented as of this encounter Visit Diagnoses Not on filedocumented in this encounter Care Teams Liquor Maker Relationship Specialty Start Date End Date Goran Lloyd PCP - General Family Practice 12/29/17 05/21/[address] [address] Annette Alvarez, Nurse Practitioner Clinical Nurse 03/22/17 10/21/20 BIGHT MAKER DRILL PRESS HAND Specialist [address] [place], [place] [id number] Jocelyn Davidson RD Financial Foundations Associate Dietitian, Registered 05/25/18 [facility] [place] [address] documented as of this encounter
--- OUTSIDE RECORDS SUMMARY | 2022-03-01 15:00 | XMS_ITS | Encounter Summary ---
:1965 Author Organization [place] Address [address] [facility] [place] [address] Care Team Providers Name Role Phone Annette Alvarez KIM DRAFTER APPRENTICE Unavailable [phone] Goran Lloyd Primary Care Provider Jocelyn Davidson RD Unavailable Reason for Visit Reason Onset Date Comments Diabetes Education 07/31/2018 appointment- pump fa ilure Encounter Details Date Type Department Care Team Description 07/31/2018 Telephone [facility] Jocelyn Davidson RD Diabetes Education Clinic [facility] (appointment- pump [address] failure) [place] [address] [address] [place] [address] Social History Tobacco Use Types Packs/Day Years Used Date Smoking Tobacco: Never Smokeless Tobacco: Never Alcohol Use Standard Drinks/Week Comments Yes 0 (1 standard drink = 0.6 oz pure alcoho l) rare Sex Assigned at Date Recorded Female 03/04/2020 12:33 PM 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 Let pt know that script writer could see her at 9:30 or 1:30 on Tue, 08/02. Pt to call [phone] to confirm if one of those times will work for her. Jocelyn Davidson RD, CDE Diabetes Stoneworking Belt Sander documented in this encounter Plan of Treatment Not on filedocumented as of this encounter Visit Diagnoses Not on filedocumented in this encounter Care Teams Glass Toughening Operator Relationship Specialty Start Date End Date Goran Lloyd PCP - General Family Practice 12/29/17 05/21/20 [facility] [address] [place] [address] Annette Alvarez, Nurse Practitioner Clinical Nurse 03/22/17 10/21/20 ARBOR PRESS OPERATOR DRAFTER APPRENTICE Specialist [address] [place] [address] Course Instructor Dietitian, Registered 05/25/18 [facility] [place] [place] [address] documented as of this encounter
--- OUTSIDE RECORDS SUMMARY | 2022-03-01 15:00 | XMS_ITS | Encounter Summary ---
:1965 Author Organization [place] Address [address] [facility] [place] [address] Care Team Providers Name Role Phone Annette Alvarez APRN BLEACHER GROUNDWOOD PULP Unavailable [phone] Goran Lloyd Primary Care Provider Jocelyn Davidson RD Unavailable Reason for Visit Reason Comments Diabetes Education Encounter Details Date Type Department Care Team Description 08/02/2018 [facility] Jocelyn Davidson, Diabet es Education Health/N[place] Visit [address] [place] [address] [place] [phone] [place] [address] Social History Tobacco Use Types Packs/Day Years Used Date Smoking Tobacco: Never Smokeless Tobacco: Never Alcohol Use Standard Drinks/Week Comments Yes 0 (1 standard drink = 0.6 oz pure alcoho l) rare Sex Assigned at Date Recorded Female 03/04/2020 12:33 PM 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 Diabetes Self-Management Education & Support SUBJECTIVE/OBJECTIVE Diabetes education in the past 24mo: (P) Yes Diabetes type: (P) Type 1 Disease course: (P) Getting harder to manage Cultural Influences/Ethnic Background: [place]ral[place] Pt seen today to set up T:Slim [...] set changes, tubing fills, etc) Healthy Eating Cultural/anabaptist diet restrictions?: (P) No Meal planning: (P) [...] hours Using T:Connect: Yes Dexcom Sharing Code: [id number] Current Treatments: (P) Diet, Insulin Injections, Insulin [...] dentist every 6 months?: (P) Yes Sees refinery operator (foot doctor)?: (P) No Healthy Coping [...] knee replacement. Jocelyn Davidson RD, CDE Diabetes Cell Inspector Time Spent: 60 minutes Encounter Type: Individual [...] Primary documented in this encounter Care Teams Medical Art Therapist Relationship Specialty Start Date End Date Goran Lloyd PCP - General Family Practice 12/29/17 05/21/20 [facility] [address] [place] [address] Annette Alvarez, Nurse Practitioner Clinical Nurse 03/22/17 10/21/20 BUS INSPECTOR BLEACHER GROUNDWOOD PULP Specialist [address] [place], [place] [phone] Jocelyn Davidson RD New Grad Rn Dietitian, Registered 05/25/18 [facility] [address] [place] [address] [place] [address] documented as of this encounter
--- OUTSIDE RECORDS SUMMARY | 2022-03-01 15:00 | XMS_ITS | Encounter Summary ---
:1965 Author Organization [place] Address [address] [place] [address]. [place] [address] Care Team Providers Name Role Phone Antonio Annette Monroe APRN WIRE DRAWING SETTER Unavailable [phone] Goran Lloyd Primary Care Provider Reason for Visit Reason Onset Date Comments Refill Request 02/08/2018 metFORMIN (GLUCOPHAG E-XR) 500 MG 24 hr tablet (Discontinued) Encounter Details Date Type Department Care Team Description 02/08/2018 Refill [facility] Annette Alvarez, Refill Request [place] PHYSICAL SECURITY ENGINEER WIRE DRAWING SETTER (metFORMIN [id number] [facility] [id number] [place] [address] (GLUCOPHAGE-XR) 500 MG [place], [place] 24 hr t ablet [id number] (Discontinued)) [phone] (Wo rk) Social History Tobacco Use Types Packs/Day Years Used Date Smoking Tobacco: Never Smokeless Tobacco: Never Alcohol Use Standard Drinks/Week Comments Yes 0 (1 standard drink = 0.6 oz pure alcoho l) rare Sex Assigned at Date Recorded Female 03/04/2020 12:33 PM 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 Refill request for Metformin. This was dc'd 01/31/18 due to her creatinine. See below. Note to pharmacy. Maye Souza RN Biguanide Agents Ydkzuz92/14 11:23 AM Patient has documented LDL within the past 12 mos. Patient's CR is NOT>1.4 OR Patient's EGFR is NOT<45 within past 12 mos. Quita Castillo RN ?? 01/31/18 5:30 PM Note Clinic Action Needed: No FNA Triage Call Presenting Problem: Marnie returned phone call from VASQUEZ Orozco. Provided note to Marnie per [facility]. Marnie verbalized understanding and had no additional questions at this time. ?? Routed to: VASQUEZ Minaya ?? Quita Castillo RN/FNA ? 01/31/18 5:29 PM Marnie Duvall contacted Quita Castillo RN ? 01/31/18 8:50 AM Pam Boudreaux, VASQUEZ routed this conversation to Cr Triage Pam Boudreaux RN ?? 01/31/18 8:49 AM Note Notes Recorded by Annette Alvarez APRN WIRE DRAWING SETTER on 01/30/2018 at 6:07 PM Please call [...] Boudreaux RN, BS Clinical Nurse Triage. ?? OPERATOR Telephone Encounter - Leslie Gamble - 02/08/2018 11:22 AM CST Discontinued Per Pharmacy patient has prescription from another pharmacy that are non transferable to [facility] becausethey have or have run out. metFORMIN (GLUCOPHAGE-XR) 500 MG 24 hr tablet (Discontinued) Last Written Prescription Date: 02/04/17-02/04/17 Last Fill Quantity: 90 tablet, # refills: 1 Last Office Visit: 01/26/18 Antonio Future Office visit: Next 5 appointments (look out 90 days) Mar 30, 2018 1:00 PM PIT OPERATOR Return Visit with Annette Alvarez APRN CNP [facility] ([facility]) [phone] Routing refill request to provider for review/approval because: Drug not active on patient's medication list OPERATOR documented in this encounter Plan of Treatment Not on filedocumented as of this encounter Visit Diagnoses Diagnosis Type 1 diabetes mellitus with complicati ons (H) documented in this encounter Care Teams Emergency Services Professional Relationship Specialty Start Date End Date Goran Lloyd PCP - General Family Practice 12/29/17 05/21/20 [facility] [address] [place] [address] Annette Alvarez, Nurse Practitioner Clinical Nurse Specialist 10/21/20 KIM RODRIGUEZ [address] [place] [address] documented as of this encounter
--- OUTSIDE RECORDS SUMMARY | 2022-03-01 15:00 | XMS_ITS | Encounter Summary ---
:1965 Author Organization [place] Address [address] [place] [address]. [place] [address] Care Team Providers Name Role Phone Annette Alvarez KIM RODRIGUEZ Unavailable [phone] Goran Lloyd Primary Care Provider Reason for Visit Reason Onset Date Comments Patient Request 03/27/2018 Suspended License Encounter Details Date Type Department Care Team Description 03/27/2018 [facility]phone [facility] Re [facility] KIM Monroe PODIATRIST ORTHOPEDIC (Suspended License) [address] [place] [id number] [phone] Social History Tobacco Use Types Packs/Day Years Used Date Smoking Tobacco: Never Smokeless Tobacco: Never Alcohol Use Standard Drinks/Week Comments Yes 0 (1 standard drink = 0.6 oz pure alcoho l) rare Sex Assigned at Date Recorded Female 03/04/2020 12:33 PM RELAY TESTER documented as of this encounter Miscellaneous Notes Telephone Encounter - Mimi Cyr CMA - 03/29/2018 1:51 PM CST Completed letter and copy of the diabetes contract driver form that was signed and faxed on 01/26/18 mailed to the patient. Included a copy of the letter for the patient's own files. Left a voicemail stating that the requested letter was mailed to her home address. Mimi Cyr CMA on 03/29/2018 at 1:53 PM Y TESTER Telephone Encounter - Annette Alvarez APRN CNP - 03/29/2018 1:38 PM RELAY TESTER Letter completed. Annette Alvarez NP Endocrinology Y TESTER Telephone Encounter - Mimi Cyr CMA - [...] to drive and was faxed to the [place] [employer]: Community Nurse and Vehicle Services. In addition to having the form faxed, patientstates she keeps a copy with her in the car. Has a future appointment scheduled for her routine diabetic follow-up on 04/19/18. Patient would like this letter mailed to her home. She will be bringing the letter with her to court. Please advise. Ok to leave a detailed message on her voicemail at [phone]. Mimi Cyr CMA on 03/29/2018 at 1:22 PM Y TESTER Telephone Encounter - Ramila Mejia - 03/27/2018 [...] Alvarez or her nurse-please call her at [phone]. Y TESTER documented in this encounter Plan of Treatment Not on filedocumented as of this encounter Visit Diagnoses Not on filedocumented in this encounter Care Teams Material Planning Analyst Relationship Specialty Start Date End Date Goran Lloyd PCP - General Family Practice 12/29/17 05/21/20 [facility] [address] [place] [address] Annette Alvarez, Nurse Practitioner Clinical Nurse Specialist 10/21/20 GRADUATE ENGINEER PODIATRIST ORTHOPEDIC [address] [place] [address] documented as of this encounter
--- OUTSIDE RECORDS SUMMARY | 2022-03-01 15:00 | XMS_ITS | Encounter Summary ---
:1965 Author Organization [place] Address [address] [place] [address]. [place] [address] Care Team Providers Name Role Phone Annette Alvarezmamadou ALVAREZ SEAM FELLER Unavailable [phone] Goran Lloyd Primary Care Provider Reason for Visit Reason Onset Date Comments Medication Refill 03/25/2018 [facility] 1 MG kit Encounter Details Date Type Department Care Team Description 03/24/2018 Refill [facility] AlvarezAnnette, Medication Refill [place] TECHNICAL TRAINING COORDINATOR SEAM FELLER ([facility] 1 MG [address]378 [facility] [address] [facility] kit) [place] [address] [phone] (Wo rk) Social History Tobacco Use Types Packs/Day Years Used Date Smoking Tobacco: Never Smokeless Tobacco: Never Alcohol Use Standard Drinks/Week Comments Yes 0 (1 standard drink = 0.6 oz pure alcoho l) rare Sex Assigned at Date Recorded Female 03/04/2020 12:33 PM COLLEGE ADMINISTRATOR documented as of this encounter Miscellaneous Notes Telephone Encounter - Pam Boudreaux RN - 03/27/2018 3:55 PM CST Prescription approved per [facility] Refill Protocol Pam Boudreaux RN BS EGE ADMINISTRATOR Telephone Encounter - Lena Mcmahon - 03/25/2018 [...] 90 days) Mar 30, 2018 1:00 PM COLLEGE ADMINISTRATOR Return Visit with Annette Alvarez APRN CNP [facility] ([facility]) [address] [facility] [phone] EGE ADMINISTRATOR documented in this encounter Plan of Treatment [...] thyroid documented in this encounter Care Teams Service Delivery Manager Relationship Specialty Start Date End Date Goran Lloyd PCP - General Family Practice 12/29/17 05/21/20 [facility] [address] [place] [address] Annette Alvarez, Nurse Practitioner Clinical Nurse Specialist 10/21/20 KIM RODRIGUEZ [address] [place] [address] documented as of this encounter
--- OUTSIDE RECORDS SUMMARY | 2022-03-01 15:00 | XMS_ITS | Encounter Summary ---
:1965 Author Organization [place] Address [address] [facility] [place] [address] Care Team Providers Name Role Phone Annette Alvarez APRN GRADUATE ASSISTANT ATHLETIC TRAINER Unavailable Goran Lloyd Primary Care Provider Jocelyn Davidson RD Unavailable Reason for Visit Reason Comments Diabetes Education Encounter Details Date Type Department Care Team Description 07/28/2018 [facility] Jocelyn Davidson, Diabet es Education Health/Nurse [place] [address] Visit [address] [facility] [place] [address] [place] [phone] [place] [address] Social History Tobacco Use Types Packs/Day Years Used Date Smoking Tobacco: Never Smokeless Tobacco: Never Alcohol Use Standard Drinks/Week Comments Yes 0 (1 standard drink = 0.6 oz pure alcoho l) rare Sex Assigned at Date Recorded Female 03/04/2020 12:33 PM WELDER PLASMA ARC documented as of this encounter Patient Instructions [...] we need to. Diabetes Support Resources: T:Connect [email or web address] Dexcom Clarity Follow up: Call ([phone]), e-mail ( ), or send MirDenegt message to educator with blood sugar readings in 1 week. Please schedule a follow up sometime soon after your knee surgery. Bring blood glucose meter and logbook with you to all doctor and follow-up appointments. Jocelyn Davidson RD, LD, CDE Diabetes Airport Operations Officer [facility] for the [facility]: For Your Diabetes or Nutrition Education Appointments Call: [phone] For Diabetes or Nutrition Related Questions Call or Email: [phone] If you need a medication refill please [...] No Other concerns:: None Cultural Influences/Ethnic Background: [place] Patient seen today for Insulin Pump CGM [...] Healthy Eating Healthy Eating Assessed Today: Yes Cultural/mu-ism diet restrictions?: No Patient on a regular [...] upcoming knee surgery. Diabetes Support Resources: T:Connect [email or web address] Dexcom Clarity Time Spent: 60 minutes Encounter [...] Primary documented in this encounter Care Teams Mud Trucker Relationship Specialty Start Date End Date Goran Lloyd PCP - General Family Practice 12/29/17 05/21/[address] [address] Annette Alvarez, Nurse Practitioner Clinical Nurse 03/22/17 10/21/20 FURNACE COMBUSTION TESTER GRADUATE ASSISTANT ATHLETIC TRAINER Specialist [address] [place] [address] Alumnae Secretary Dietitian, Registered 05/25/18 JET SERRANO [address] [place] [address] SHARAN CARSON [address] documented as of this encounter
--- OUTSIDE RECORDS SUMMARY | 2022-03-01 15:00 | XMS_ITS | Encounter Summary ---
:1965 Author Organization [place] Address [address] [place] [address]. [place] [address] Care Team Providers Name Role Phone Annette Alvarez SKIVER HEEL TAP BOAT CANVAS MAKER AND INSTALLER Unavailable [phone] Goran Lloyd Primary Care Provider Jocelyn Davidson RD Unavailable Encounter Details Date Type Department Care Team Description 06/28/[address] [facility] Scan, STATEMENT OF Health Info Mgmt Non-Provider [facility] TANDEM [address] [place] [phone] Social History Tobacco Use Types Packs/Day Years Used Date Smoking Tobacco: Never Smokeless Tobacco: Never Alcohol Use Standard Drinks/Week Comments Yes 0 (1 standard drink = 0.6 oz pure alcoho l) rare Sex Assigned at Date Recorded Female 03/04/2020 12:33 PM PATIENT PARTNER documented as of this encounter Plan of Treatment Not on filedocumented as of this encounter Visit Diagnoses Not on filedocumented in this encounter Care Teams Gas Meter Checker Relationship Specialty Start Date End Date Goran Lloyd PCP - General Family Practice 12/29/17 05/21/20 [facility] [address] [place] [address] Annette Alvarez, Nurse Practitioner Clinical Nurse 03/22/17 10/21/20 SKIVER HEEL TAP BOAT CANVAS MAKER AND INSTALLER Specialist [address] [place] [address] Load Dispatcher Local Dietitian, Registered 05/25/18 [facility] [place] [address] documented as of this encounter
--- OUTSIDE RECORDS SUMMARY | 2022-03-01 15:00 | XMS_ITS | Encounter Summary ---
:1965 Author Organization [place] Address [address] [place] [address]. 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
--- OUTSIDE RECORDS SUMMARY | 2022-03-01 15:00 | XMS_ITS | Encounter Summary ---
:1965 Author Organization [place] Address [address] [facility] [place] [address] Care Team Providers Name Role Phone No Ref-Primary, Physician Primary Care Provider [phone] Annette Alvarez APPRENTICE PLANT ATTENDANT PLANT PROPAGATOR Unavailable [phone] Reason for Visit Reason Onset Date Comments Diabetes No Show 12/22/2017 Encounter Details Date Type Department Care Team Description 12/22/2017 Office Visit [facility] GERALDO Moss SHOW (P rimary Dx) Clinic [place] MD Yina [address] [place] [address] [address] [place] [address] Social History Tobacco Use Types Packs/Day Years Used Date Smoking Tobacco: Never Smokeless Tobacco: Never Alcohol Use Standard Drinks/Week Comments Yes 0 (1 standard drink = 0.6 oz pure alcoho l) rare Sex Assigned at Date Recorded Female 03/04/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 documented in this encounter Plan of Treatment Not on filedocumented as of this encounter Visit Diagnoses Diagnosis NO SHOW - Primary documented in this encounter Care Teams Certified Welding Inspector Relationship Specialty Start Date End Date No Ref-Primary, PCP - General 12/25/14 12/28/17 Physician Annette Alvarez, Nurse Practitioner Clinical Nurse Specialist 10/21/20 APPRENTICE PLANT ATTENDANT PLANT PROPAGATOR [address] [place] [address] documented as of this encounter
--- OUTSIDE RECORDS SUMMARY | 2022-03-01 15:00 | XMS_ITS | Encounter Summary ---
:1965 Author Organization [place] Address [facility] [place] [address] Care Team Providers Name Role Phone Annette Alvarezmamadou ALVAREZ TECHNICAL HEALTHCARE CONSULTANT Unavailable Goran Lloyd Primary Care Provider Jocelyn Davidson RD Unavailable Encounter Details Date Type Department Care Team Description 06/12/2018 Orders Only [facility] Annette Alvarez Type 1 rohan betes mellitus with complications (H) (Primary Dx); Clinic [place] KIM Monroe TECHNICAL HEALTHCARE CONSULTANT Abdominal bloating [address] [place] [address] [phone] Social History Tobacco Use Types Packs/Day Years Used Date Smoking Tobacco: Never Smokeless Tobacco: Never Alcohol Use Standard Drinks/Week Comments Yes 0 (1 standard drink = 0.6 oz pure alcoho l) rare Sex Assigned at Date Recorded Female 03/04/2020 12:33 PM GARAGE ATTENDANT documented as of this encounter Plan of Treatment Not on filedocumented as of this encounter Visit Diagnoses Diagnosis Type 1 diabetes mellitus with complicati ons (H) - Primary Abdominal bloating Flatulence, eructation, and gas pain documented in this encounter Care Teams Vulnerability Researcher Relationship Specialty Start Date End Date Goran Lloyd PCP - General Family Practice 12/29/17 05/21/20 [address] [place] [address] Annette Alvarez, Nurse Practitioner Clinical Nurse 03/22/17 10/21/20 AIRLINE COUNTER AGENT TECHNICAL HEALTHCARE CONSULTANT Specialist [address] [place], [place] [id number] Jocelyn Davidson RD Shuttlecock Assembler Dietitian, Registered 05/25/18 [facility] MAG[facility] [place] [address] documented as of this encounter
--- OUTSIDE RECORDS SUMMARY | 2022-03-01 15:00 | XMS_ITS | Encounter Summary ---
:1965 Author Organization [place] Address [address] [place] [address]. [place] [address] Care Team Providers Name Role Phone Annette Alvarez CLIENT LEADER MOTOR COACH SUPERVISOR Unavailable [phone] Goran Lloyd Primary Care Provider Encounter Details Date Type Department Care Team Description 05/24/2018 Travel Social History Tobacco Use Types Packs/Day Years Used Date Smoking Tobacco: Never Smokeless Tobacco: Never Alcohol Use Standard Drinks/Week Comments Yes 0 (1 standard drink = 0.6 oz pure alcoho l) rare Sex Assigned at Date Recorded Female 03/04/2020 12:33 PM RESEARCH GREENHOUSE SUPERVISOR documented as of this encounter Plan of Treatment Not on filedocumented as of this encounter Visit Diagnoses Not on filedocumented in this encounter Care Teams Budget Report Clerk Relationship Specialty Start Date End Date Goran Lloyd PCP - General Family Practice 12/29/17 05/21/20 [facility] [address] [place] [address] Annette Alvarez, Nurse Practitioner Clinical Nurse Specialist 10/21/20 CLIENT LEADER MOTOR COACH SUPERVISOR [address] [place] [address] documented as of this encounter
--- OUTSIDE RECORDS SUMMARY | 2022-03-01 15:00 | XMS_ITS | Encounter Summary ---
:1965 Author Organization [place] Address [address] [facility] [place] [address] Care Team Providers Name Role Phone Annette Alvarez APRN, CNP Unavailable Goran Lloyd Primary Care Provider Jocelyn Davidson RD Unavailable Reason for Visit Reason Onset Date Comments Diabetes Education 07/10/2018 Pump orders Encounter Details Date Type Department Care Team Description 07/10/2018 Telephone [facility] Jocelyn Davidson RD Diabetes Education Clinic [facility] (Pump orders) [address] [place] [address] [address] [place] [address] Social History Tobacco Use Types Packs/Day Years Used Date Smoking Tobacco: Never Smokeless Tobacco: Never Alcohol Use Standard Drinks/Week Comments Yes 0 (1 standard drink = 0.6 oz pure alcoho l) rare Sex Assigned at Date Recorded Female 03/04/2020 12:33 PM DIRECTOR LIFE documented as of this encounter Miscellaneous Notes [...] alternative plan. Jocelyn Davidson RD, CDE Diabetes Wheel Aligner documented in this encounter Plan of Treatment Not on filedocumented as of this encounter Visit Diagnoses Not on filedocumented in this encounter Care Teams Child Care Centre Director Relationship Specialty Start Date End Date Goran Lloyd PCP - General Family Practice 12/29/17 05/21/[address] [address] Annette Alvarez, Nurse Practitioner Clinical Nurse 03/22/17 10/21/20 LOAN BROKER AQUATIC LABORER Specialist [address] [place] [address] Inventory Accountant Dietitian, Registered 05/25/18 [facility] [address] [id number] documented as of this encounter
--- OUTSIDE RECORDS SUMMARY | 2022-03-01 15:00 | XMS_ITS | Encounter Summary ---
:1965 Author Organization [place] Address [address] [place] [address]. [place] [address] Care Team Providers Name Role Phone Annette Alvarezmamadou ALVAREZ MANAGER BAKERY Unavailable [phone] Goran Lloyd Primary Care Provider Reason for Visit Reason Onset Date Comments Nurse Advice Line 01/31/2018 labs Encounter Details Date Type Department Care Team Description 01/31/2018 Telephone [facility] Annette Alvarez Nurse Advi ce Line Clinic [place] KIM Monroe MANAGER BAKERY (labs) [address] [place] [address] [phone] Social History Tobacco Use Types Packs/Day Years Used Date Smoking Tobacco: Never Smokeless Tobacco: Never Alcohol Use Standard Drinks/Week Comments Yes 0 (1 standard drink = 0.6 oz pure alcoho l) rare Sex Assigned at Date Recorded Female 03/04/2020 12:33 PM BEACH LIFEGUARD documented as of this encounter Miscellaneous Notes Telephone Encounter - Quita Castillo RN - 01/31/2018 5:30 PM BEACH LIFEGUARD Clinic Action Needed: No FNA Triage Call Presenting Problem: Marnie returned phone call from VASQUEZ Orozco. Provided note to Marnie per [facility]. Marnie verbalized understanding and had no additional questions at this time. Routed to: fruit cutter Quita Castillo RN/FNA H LIFEGUARD Telephone Encounter - Pam Boudreaux RN - [...] Pam Boudreaux RN, BS Clinical Nurse Triage. H LIFEGUARD documented in this encounter Plan of Treatment Not on filedocumented as of this encounter Visit Diagnoses Not on filedocumented in this encounter Care Teams Rn Ent Relationship Specialty Start Date End Date Goran Lloyd PCP - General Family Practice 12/29/17 05/21/20 [facility] [address] [place] [address] Annette Alvarez, Nurse Practitioner Clinical Nurse Specialist 10/21/20 KIM RODRIGUEZ [address] [place] [address] documented as of this encounter
--- OUTSIDE RECORDS SUMMARY | 2022-03-01 15:00 | XMS_ITS | Encounter Summary ---
:1965 Author Organization [place] Address [address] [place] [address]. [place] [address] Care Team Providers Name Role Phone Annette Alvarez APRN VIGOUREUX PRINTER Unavailable Goran Lloyd Primary Care Provider Jocelyn Davidson RD Unavailable Encounter Details Date Type Department Care Team Description 05/25/2018 Travel Social History Tobacco Use Types Packs/Day Years Used Date Smoking Tobacco: Never Smokeless Tobacco: Never Alcohol Use Standard Drinks/Week Comments Yes 0 (1 standard drink = 0.6 oz pure alcoho l) rare Sex Assigned at Date Recorded Female 03/04/2020 12:33 PM SPECIAL EDUCATION PROFESSOR documented as of this encounter Plan of Treatment Not on filedocumented as of this encounter Visit Diagnoses Not on filedocumented in this encounter Care Teams Ballistics Laboratory Gunsmith Relationship Specialty Start Date End Date Goran Lloyd PCP - General Family Practice 12/29/17 05/21/20 [facility] [address] [place] [address] Annette Alvarez, Nurse Practitioner Clinical Nurse 03/22/17 10/21/20 MIX CHEMIST VIGOUREUX PRINTER Specialist [address] [place], [place] [id number] Jocelyn Davidson RD Bus Driver Supervisor Dietitian, Registered 05/25/[address] [place] [address] documented as of this encounter
--- OUTSIDE RECORDS SUMMARY | 2022-03-01 15:00 | XMS_ITS | Encounter Summary ---
:1965 Author Organization [place] Address [address] [facility] [place] [address] Care Team Providers Name Role Phone Lashae Alvarez KIM RODRIGUEZ Unavailable [phone] Goran Lloyd Primary Care Provider Reason for Visit Reason Comments Diabetes discuss Hypoglycemia event 2 017 and DMV letter Encounter Details Date Type Department Care Team Description 01/26/2018 Office Visit [facility] Lashae Alvarez Type 1 rohan radha mellitus with complications (H) (Primary Dx); [facility] [place] KIM Monroe CNP Acquired hypothyroidism; [address] [place] [id number] [place] [address] 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 [address] [phone] Social History Tobacco Use Types Packs/Day Years Used Date Smoking Tobacco: Never Smokeless Tobacco: Never Alcohol Use Standard Drinks/Week Comments Yes 0 (1 standard drink = 0.6 oz pure alcoho l) rare Sex Assigned at Date Recorded Female 03/04/2020 12:33 PM BULB FARMWORKER documented as of this encounter Last Filed [...] have any questions. 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 Prevention: Flu Shot- Pneumovax- recommended Opthalmology-yes [...] in March 2018. Lashae Alvarez NP Endocrinology [facility] CC: documented in this encounter Miscellaneous Notes Addendum Note - Lashae Alvarez APRN CNP - 01/30/2018 6:08 PM BULB FARMWORKER Addended by: LASHAE ALVAREZ on: 01/30/2018 06:08 PM Modules accepted: Orders FARMWORKER documented in this encounter Plan of Treatment [...] T4 Free 1.12 0.76 - 1.46 01/26/2018 [facility] ng/dL 5:[address] [facility] Specimen Anatomical Collection Method Collection Time Receive d Time (Source) Location / / Volume Laterality Blood specimen 01/26/2018 12:33 8 (specimen) PM CDT 12:34 PM CDT Lashae Alvarez APRN, CNP LAB - BLOOD ORDERABLES Performing Organization Address City/[facility]/ZIP Code Phon e Number [facility] [address] [place] [phone] (ABNORMAL) TSH (01/26/2018 12:33 PM CDT) P athologist Signature TSH 0.09 (L) 0.40 - 01/26/2018 [facility] 4.00 mU/L 5:[address] [facility] Specimen Anatomical Collection Method Collection Time Receive d Time (Source) Location / / Volume Laterality Blood specimen 01/26/2018 12:33 8 (specimen) PM CDT 12:34 PM CDT Lashae Alvarez APRN, CNP LAB - BLOOD ORDERABLES Performing Organization Address City/[facility]/ZIP Code Phon e Number [facility] [address] [place] [address] (ABNORMAL) Basic metabolic panel (01/26/2018 12:33 PM CDT) Analysis Performed At Patho logist Time Signature Sodium 141 133 - 144 01/26/2018 [facility] mmol/L 5:[address] [facility] Potassium 4.5 3.4 - 5.3 01/26/2018 [facility] mmol/L 5:[address] [facility] Chloride 107 94 - 109 01/26/2018 [facility] mmol/L 5:08 PM [facility] Carbon Dioxide 26 20 - 32 01/26/2018 [facility] mmol/L 5:08 PM [facility] Anion Gap 8 3 - 14 01/26/2018 [facility] mmol/L 5:08 PM [facility] Glucose 140 (H) 70 - 99 01/26/2018 [facility] mg/dL 5:08 PM [facility] Comment: Non Fasting Urea Nitrogen 19 7 - 30 mg/dL 01/26/2018 5:08 PM [facility] Creatinine 1.47 (H) 0.52 - 1.04 01/26/2018 5:08 PM [facility] mg/dL [facility] GFR Estimate 37 (L) >60 mL/min/1.7m2 01/26/2018 5:08 PM [facility] Comment: Non GFR Calc GFR Estimate If 45 (L) >60 mL/min/1.7m2 01/26/2018 5:08 P M [facility] Black [facility] Comment: GFR Calc Calcium 9.5 8.5 - 10.1 mg/dL 01/26/2018 5:[address] [facility] Specimen Anatomical Collection Method Collection Time Receive d Time (Source) Location / / Volume Laterality Blood specimen 01/26/2018 12:33 8 (specimen) PM CDT 12:34 PM CDT Lashae Alvarez APRN DRY PRESS OPERATOR HELPER LAB - BLOOD ORDERABLES Performing Organization Address City/State/ZIP Code Phon e Number 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
--- OUTSIDE RECORDS SUMMARY | 2022-03-01 15:00 | XMS_ITS | Encounter Summary ---
:1965 Author Organization [place] Address [address] [facility] [place] [address] Care Team Providers Name Role Phone Annette Alvarez APRN EXPEDITER Unavailable Goran Lloyd Primary Care Provider Deidre Kirkland RD Unavailable Reason for Visit Reason Comments Diabetes Education Encounter Details Date Type Department Care Team Description 07/19/2018 [facility] Deidre Kirkland, Diabet es Education Health/[place] Visit [address] [address] [place] [address] Social History Tobacco Use Types Packs/Day Years Used Date Smoking Tobacco: Never Smokeless Tobacco: Never Alcohol Use Standard Drinks/Week Comments Yes 0 (1 standard drink = 0.6 oz pure alcoho l) rare Sex Assigned at Date Recorded Female 03/04/2020 12:33 PM GRADE TAMPER documented as of this encounter Patient Instructions [...] (midnight): 120 Active Insulin Time: 4 hours [facility] Services for the [facility] Area: For Your Diabetes Education and Nutrition Appointments Call: [phone] For Diabetes Education or Nutrition Related Questions: E-mail: [email or web address] If you need a medication refill please contact your pharmacy. Please allow 3 business days for your refills to be completed. Instructions for emailing the Diabetes Educators If you need to communicate a non-urgent message to a Assistant Corporate Controller via email, please send to [email or web address]. Please follow the following email guidelines: Subject [...] Insulin Pump Start SUBJECTIVE/OBJECTIVE Cultural Influences/Ethnic Background: Bhutanese Pt here with , and Tandem pump Rep. Insulin Pump Information Insulin Pump Type: Tandem t:slim Pump Serial Number: [id number] Infusion Set: Tandem Tandem Infusion Set: Auto Soft 90 Insulin Pump Start Insulin Pump Type: Tandem t:slim Pump Serial Number: [id number] Tandem Infusion Set: Auto Soft 90, 6 [...] on: 07/28/[address], CDE Diabetes Intelligence Intern Time Spent: 60 Visit Type: Individual Any [...] thyroid documented in this encounter Care Teams Back Winder Relationship Specialty Start Date End Date Goran Lloyd PCP - General Family Practice 12/29/17 05/21/[address] [address] Annette Alvarez, Nurse Practitioner Clinical Nurse 03/22/17 10/21/20 HYBRID POWERTRAIN DEVELOPMENT ENGINEER EXPEDITER Specialist [address] [place], [place] [id number] Deidre Kirkland RD Assistant Corporate Controller Dietitian, Registered 05/25/18 JET [place] [facility] [place] [address] documented as of this encounter
--- OUTSIDE RECORDS SUMMARY | 2022-03-01 15:00 | XMS_ITS | Encounter Summary ---
:1965 Author Organization [place] Address [address] [place] [address]. 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 OPERATOR documented as of this encounter Plan of Treatment Not on filedocumented as of this encounter Visit Diagnoses Not on filedocumented in this encounter Care Teams Flatware Maker Relationship Specialty Start Date End Date Goran Lloyd PCP - General Family Practice 12/29/17 05/21/20 [facility] [address] [place] [address] Annette Alvarez, Nurse Practitioner Clinical Nurse 03/22/17 10/21/20 ACTIMIZE ARCHITECT BUSINESS EDITOR Specialist [address] [place], [place] [phone] Jocelyn Davidson RD Shucker Dietitian, Registered 05/25/[address] [place] [address] documented as of this encounter
--- OUTSIDE RECORDS SUMMARY | 2022-03-01 15:00 | XMS_ITS | Encounter Summary ---
:1965 Author Organization [place] Address [address] [facility] [place] [address] Care Team Providers Name Role Phone Annette Alvarez APRN ACCOUNTING PROFESSOR Unavailable [phone] Goran Lloyd Primary Care Provider Jocelyn Davidson RD Unavailable Reason for Visit Reason Comments Diabetes Education Encounter Details Date Type Department Care Team Description 05/25/2018 [facility] Jocelyn Davidson, Diabet es Education Health/[place] Visit [address] [place] [address] [place] [phone] [place], [place] [id number] Social History Tobacco Use Types Packs/Day Years Used Date Smoking Tobacco: Never Smokeless Tobacco: Never Alcohol Use Standard Drinks/Week Comments Yes 0 (1 standard drink = 0.6 oz pure alcoho l) rare Sex Assigned at Date Recorded Female 03/04/2020 12:33 PM CRIME SCENE INVESTIGATOR documented as of this encounter Progress Notes Jocelyn Davidson, RD - 05/25/2018 11:30 AM CST Images from the original note were not included. Diabetes Self-Management Education & Support SUBJECTIVE/OBJECTIVE Diabetes education in the past 24mo: Yes Diabetes type: Type 1 Disease course: Getting harder to manage Diabetes management related comments/concerns: getting my A1C to a normal level Cultural Influences/Ethnic Background: Cambodian Patient seen today for Insulin Pump Pre-Start: [...] prior to insulin pump start. Healthy Eating Cultural/yazidi diet restrictions?: No Meal planning: Carbohydrate counting [...] IQ pump. Jocelyn Davidson RD, CDE Diabetes Transmission Operator Time Spent: 60 minutes Encounter Type: Individual Any diabetes medication dose changes were made via the CDE Protocol and Collaborative Practice Agreement with the patient's endocrinology provider. A copy of this encounter was shared with the provider. E SCENE INVESTIGATOR documented in this encounter Plan of Treatment Not on filedocumented as of this encounter Visit Diagnoses Diagnosis Type 1 diabetes mellitus with complicati ons (H) - Primary documented in this encounter Care Teams Benzene Worker Relationship Specialty Start Date End Date Goran Lloyd PCP - General Family Practice 12/29/17 05/21/[address] [address] Annette Alvaerz, Nurse Practitioner Clinical Nurse 03/22/17 10/21/20 MAINTENANCE AND OPERATIONS SUPERVISOR ACCOUNTING PROFESSOR Specialist [address] [place], [place] [phone] Jocelyn Davidson RD Trauma Nurse Dietitian, Registered 05/25/18 [facility] MAGG[facility] [place] [address] [place] [address] documented as of this encounter
--- OUTSIDE RECORDS SUMMARY | 2022-03-01 15:01 | XMS_ITS | Encounter Summary ---
:1965 Author Organization [place] Address [address] [place] [address]. [place] [address] Care Team Providers Name Role Phone No Ref-Primary, Physician Primary Care Provider [phone] Reason for Visit Reason Onset Date Comments Medication Request 01/26/2017 test strips Encounter Details Date Type Department Care Team Description 01/26/2017 [facility] Annette Alvarez, Medication Request (test [place] COURIER DELIVERY DRIVER RN MDS strips) [address] 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 Ashok Bella RN Telephone Encounter - Annette Alvarez, COURIER DELIVERY DRIVER RN MDS - 01/27/2017 12:25 PM CDT Please call [...] work shift times, OK to leave message [phone] Routing refill request to provider for review/approval [...] uncontrolled documented in this encounter Care Teams Car Blocker Relationship Specialty Start Date End Date No Ref-Primary, Physician PCP - General 12/25/14 12/28/17 documented as of this encounter
--- OUTSIDE RECORDS SUMMARY | 2022-03-01 15:01 | XMS_ITS | Encounter Summary ---
:1965 Author Organization [place] Address [address] [facility] [place] [address] Care Team Providers Name Role Phone No Ref-Primary, Physician Primary Care Provider [phone] Annette Alvarez APRN JIG GRINDER SET UP OPERATOR Unavailable [phone] Reason for Visit Reason Onset Date Comments Results 03/22/2017 lab results and lega l questions Encounter Details Date Type Department Care Team Description 03/22/[address] [facility] No Ref-Primary, Results (lab results and Clinic [place] Physician legal questions) [address] [facility] [phone] [place], [place] (Fax) [address] Social History Tobacco Use Types Packs/Day Years Used Date Smoking Tobacco: Never Smokeless Tobacco: Never Alcohol Use Standard Drinks/Week Comments Yes 0 (1 standard drink = 0.6 oz pure alcoho l) rare Sex Assigned at Date Recorded Female 03/04/2020 12:33 PM EDGE GLUER documented as of this encounter Miscellaneous Notes Telephone Encounter - Karley Kessler CMA - 03/23/2017 2:14 PM EDGE GLUER Pt informed. She will call back to make an appt. Karley Kessler CMA GLUER Telephone Encounter - Yina Moss MD - 03/23/2017 10:51 AM EDGE GLUER Can f/u in 2-4 weeks with Annette. GLUER Telephone Encounter - Karley Kessler CMA - 03/22/2017 11:38 AM EDGE GLUER ENROBER, please advise in LS's absence. Karley Kessler CMA GLUER Telephone Encounter - Jasmyn Lee RN - [...] this. I did advise her to contacta machine shop apprentice about this as I do not have a legal background or the answers to her questions regarding a legal commitment. Advised her it is not a simple process, its a legal process and she does have rights as an individual. She will contact a machine shop apprentice regarding her concerns. Jasmyn Lee RN -- [facility] Workforce GLUER documented in this encounter Plan of Treatment Not on filedocumented as of this encounter Visit Diagnoses Not on filedocumented in this encounter Care Teams Counseling Department Chair Relationship Specialty Start Date End Date No Ref-Primary, PCP - General 12/25/14 12/28/17 Physician Annette Alvarez, Nurse Practitioner Clinical Nurse Specialist 10/21/20 CAKE PRESS OPERATOR JIG GRINDER SET UP OPERATOR [address] [place] [address] documented as of this encounter
--- OUTSIDE RECORDS SUMMARY | 2022-03-01 15:01 | XMS_ITS | Encounter Summary ---
:1965 Author Organization [place] Address [address] [place] [address]. [place] [address] Care Team Providers Name Role Phone No Ref-Primary, Physician Primary Care Provider [phone] Encounter Details Date Type Department Care Team Description 02/25/2017 Orders Only [facility] Typ e 1 diabetes mellitus with complications (H); [facility] Uncontrolled type 1 diabetes mellitus with stage 3 chronic kidney disease (H); [address] [facility] Flatulence, eructation, and gas pain; [place], [place] PCOS (polyc ystic ovarian syndrome) [phone] Social History Tobacco Use Types Packs/Day Years Used Date Smoking Tobacco: Never Smokeless Tobacco: Never Alcohol Use Standard Drinks/Week Comments Yes 0 (1 standard drink = 0.6 oz pure alcoho l) rare Sex Assigned at Date Recorded Female 03/04/2020 12:33 PM BOOK AGENT documented as of this encounter Progress Notes Annette Alvarez APRN CNP - 02/27/2017 2:18 PM CST Please mail comments and results to the patient. Marnie, Your kidney test is still elevated but the potassium is now normal. Your A1c is better, decreased from 7.8%. Here's a copy of the results for your records. Annette Alvarez NP Endocrinology AGENT documented in this encounter Plan of Treatment Not on filedocumented as of this encounter Procedures Procedure Name Priority Date/Time Associated Diagnosis Comme nts HEMOGLOBIN A1C Routine 02/25/2017 12:05 Type 1 diabetes Result s for this PM BOOK AGENT mellitus with procedure are in complications (H ) the results Uncontrolled type 1 section. diabetes mellitus with stage 3 chronic kidney disease (H) Flatulence, eructation, and gas pain BASIC METABOLIC Routine 02/25/2017 12:05 Type 1 diabetes Resul ts for this PANEL PM BOOK AGENT mellitus with procedure are in complications (H ) the results Uncontrolled type 1 section. diabetes mellitus with stage 3 chronic kidney disease (H) Flatulence, eructation, and gas pain PCOS (polycystic ovarian syndrome) documented in this encounter Results (ABNORMAL) Basic metabolic panel FUTURE 1yr (02/25/2017 12:05 PM BOOK AGENT) [facility] Method Time Signature Sodium 138 133 - 144 02/26/2017 [facility] mmol/L 11:18 AM [facility] Potassium 4.9 3.4 - 5.3 02/26/2017 [facility] mmol/L 11:18 AM [facility] Chloride 106 94 - 109 02/26/2017 [facility] mmol/L 11:18 AM [facility] Carbon Dioxide 20 20 - 32 02/26/2017 [facility] mmol/L 11:18 AM [facility] Anion Gap 12 3 - 14 02/26/2017 [facility] mmol/L 11:18 AM [facility] Glucose 157 (H) 70 - 99 02/26/2017 [facility] mg/dL 11:18 AM [facility] Urea Nitrogen 25 7 - 30 02/26/2017 [facility] mg/dL 11:18 AM [facility] Creatinine 1.60 (H) 0.52 - 02/26/2017 [facility] 1.04 11:18 AM [facility] mg/dL [facility] GFR Estimate 34 (L) >60 02/26/2017 [facility] mL/min/1. 11:18 AM [facility] 7m2 [facility] Comment: Non GFR Calc GFR Estimate If 41 (L) >60 mL/min/1.7m2 02/26/2017 11:18 AM [facility] Black [facility] Comment: GFR Calc Calcium 8.8 8.5 - 10.1 mg/dL 02/26/2017 11:18 AM BOOK AGENT [facility] Specimen Anatomical Collection Method Collection Time Receive d Time (Source) Location / / Volume Laterality Blood specimen 02/25/2017 12:05 7 (specimen) PM BOOK AGENT 12:06 PM BOOK AGENT Annette Alvarez APRN FELT TIPPING MACHINE TENDER LAB - BLOOD ORDERABLES Performing Organization Address City/[facility]/ZIP Code Phon e Number [facility] [address] [place] [address] (ABNORMAL) Hemoglobin A1c (02/25/2017 12:05 PM BOOK AGENT) P athologist Signature Hemoglobin A1C 7.6 (H) 4.3 - 6.0 02/25/2017 [facility] 12:21 PM BOOK AGENT [facility] Specimen Anatomical Collection Method Collection Time Receive d Time (Source) Location / / Volume Laterality Blood specimen 02/25/2017 12:05 7 (specimen) PM BOOK AGENT 12:06 PM BOOK AGENT Annette Alvarez APRN, CNP LAB - BLOOD ORDERABLES Performing Organization Address City/[facility]/ZIP Code Phon e Number [facility] [address] [place] [address] documented in this encounter Visit Diagnoses Diagnosis Type 1 diabetes mellitus with complicati ons (H) Uncontrolled type 1 diabetes mellitus wi th stage 3 chronic kidney disease Type I (juvenile type) diabetes mellitus with renal manifestations, uncontrolled Flatulence, eructation, and gas pain PCOS (polycystic ovarian syndrome) Polycystic ovaries documented in this encounter Care Teams Dry Goods Clerk Relationship Specialty Start Date End Date No Ref-Primary, Physician PCP - General 12/25/14 12/28/17 documented as of this encounter
--- OUTSIDE RECORDS SUMMARY | 2022-03-01 15:01 | XMS_ITS | Encounter Summary ---
:1965 Author Organization [place] Address [address] [place] [address]. [place] [address] Care Team Providers Name Role Phone No Ref-Primary, Physician Primary Care Provider Annette Alvaerz APRN SENIOR NUCLEAR MEDICINE TECHNOLOGIST Unavailable [phone] Reason for Visit Reason Comments Diabetes Encounter Details Date Type Department Care Team Description 06/17/2017 Office Visit [facility] Annette Alvarez Type 1 rohan radha mellitus with complications (H) (Primary Dx); Clinic [place] KIM Monroe SENIOR NUCLEAR MEDICINE TECHNOLOGIST Abnormal weight gain; [id number] [place] [address] Morbid obesity (H); [place], [place] Diabeti c polyneuropathy associated with type 1 diabetes mellitus (H); [id number] 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 [phone] Social History Tobacco Use Types Packs/Day Years Used Date Smoking Tobacco: Never Smokeless Tobacco: Never Alcohol Use Standard Drinks/Week Comments Yes 0 (1 standard drink = 0.6 oz pure alcoho l) rare Sex Assigned at Date Recorded Female 03/04/2020 12:33 PM OUT OF TOWN COLLECTION CLERK documented as of this encounter Last [...] provider about better treatment for depression. 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 History of right nephrectomy 12 years ago - was having severe pain prior to surgery, thinks due topolycystic kidney disease Lives in [place] Very distressed about weight gain and inability [...] Follow-up: 1 month Annette Alvarez NP Endocrinology [facility] CC: documented in this encounter Plan of Treatment Not on filedocumented as of this encounter Visit Diagnoses Diagnosis Type 1 diabetes mellitus with complicati ons (H) - Primary Abnormal weight gain Morbid obesity (H) Morbid obesity Diabetic polyneuropathy associated with type 1 diabetes mellitus (H) 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 documented in this encounter Care Teams Roller Presser Operator Relationship Specialty Start Date End Date No Ref-Primary, PCP - General 12/25/14 12/28/17 Physician Annette Alvarez, Nurse Practitioner Clinical Nurse Specialist 10/21/20 KIM RODRIGUEZ [address] [place] [address] documented as of this encounter
--- OUTSIDE RECORDS SUMMARY | 2022-03-01 15:01 | XMS_ITS | Encounter Summary ---
:1965 Author Organization [place] Address Formerly [facility], [facility] 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
--- OUTSIDE RECORDS SUMMARY | 2022-03-01 15:01 | XMS_ITS | Encounter Summary ---
:1965 Author Organization [place] Address [address] [facility] [place] [address] Care Team Providers Name Role Phone No Ref-Primary, Physician Primary Care Provider Annette Alvarez APRN INBOUND SALES MANAGER Unavailable Reason for Visit Reason Onset Date Comments Prior Auth - Medication 06/27/2017 Contrave APPROVE D Encounter Details Date Type Department Care Team Description 06/27/[address] 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 Prior Authorization Approval Authorization Effective Date: 06/29/2017 Authorization Expiration Date: 10/29/2017 Medication: Contrave APPROVED Approved Dose/Quantity: 120/30 days Reference #: [id number] Insurance Company: [employer] - Expected CoPay: $25.00 Which Pharmacy is filling the prescription (Not needed for infusion/clinic administered): [facility] [address] [place] [address] [address] Pharmacy Notified: Yes Patient Notified: Yes Telephone Encounter - Lynsey Pro - 06/29/2017 9:00 AM CDT Images from the original note were not included. PA Initiation Medication: Contrave Insurance Company: [employer] - Pharmacy Filling the Rx: [facility] [address] [facility] [address] Filling Pharmacy Filling Pharmacy Fax: Start Date: 06/29/2017 Central Prior Authorization Team Telephone Encounter - Karley Kessler CMA - 06/28/2017 1:48 PM CDT PA request routed to guin. Waiting to hear back. Karley Kessler CMA Telephone Encounter - Karley Kessler CMA - 06/28/2017 1:31 PM CDT Prior Authorization Retail Medication Request Medication/Dose: Contrave ICD code (if different than what is on RX): Previously Tried and Failed: See below Rationale: Insurance Name: [employer] Pharmacy Information (if different than what is [...] on filedocumented in this encounter Care Teams Strainer Cleaner Relationship Specialty Start Date End Date No Ref-Primary, PCP - General 12/25/14 12/28/17 Physician Annette Alvarez, Nurse Practitioner Clinical Nurse Specialist 10/21/20 KIM RODRIGUEZ [address] [place] [address] documented as of this encounter
--- OUTSIDE RECORDS SUMMARY | 2022-03-01 15:01 | XMS_ITS | Encounter Summary ---
:1965 Author Organization [place] Address [address] [place] [address] Care Team Providers Name Role Phone No Ref-Primary, Physician Primary Care Provider [phone] Annette Alvarez APRN CHURN DRILLER Unavailable [phone] Goran Lloyd Primary Care Provider Jocelyn Davidson RD Unavailable Tamar Murphy VP OF GLOBAL MARKETING CHURN DRILLER Unavailable Nikita Gamble Primary Care Provider Reason for Visit Reason Comments Consult Infectious Disease Encounter Details Date Type Department Care Team Description 10/13/2017 [facility] (Infectious [facility] Fredy Pavon MD Disease) Patient Access [address] [address] [place], [place] [phone] [address] Social History Tobacco Use Types Packs/Day Years Used Date Smoking Tobacco: Never Smokeless Tobacco: Never Alcohol Use Standard Drinks/Week Comments Yes 0 (1 standard drink = 0.6 oz pure alcoho l) rare Sex Assigned at Date Recorded Female 03/04/2020 12:33 PM CAREER TECHNICAL SUPERVISOR COVID-19 Exposure Response Date Recorded In the last month, have you been in contact with No / Unsure 03/05/2020 11:41 AM CAREER TECHNICAL SUPERVISOR someone who was confirmed or suspected to have Coronavirus / COVID-19? documented as of this encounter Plan of Treatment Not on filedocumented as of this encounter Visit Diagnoses Not on filedocumented in this encounter Additional Health Concerns Infection Onset Date Last Indicated Resolved Time Rule Out COVID-19 02/26/2020 02/26/2020 02/27/2020 4:3 2 PM CAREER TECHNICAL SUPERVISOR documented as of this encounter Care Teams Race Steward Relationship Specialty Start Date End Date No Ref-Primary, PCP - General 12/25/14 12/28/17 Physician Goran Lloyd PCP - General Family Practice 12/29/17 05/21/20 [facility] [address] [place] [address] Nikita Gamble PCP - General [facility] 05/26/20 [facility] [address] [place] [address] Annette Alvarez, Nurse Practitioner Clinical Nurse 03/22/17 10/21/20 VP OF GLOBAL MARKETING CHURN DRILLER Specialist [address] [place], [place] [phone] Jocelyn Davidson RD Usps Letter Carrier Dietitian, Registered 05/25/18 [facility] [address] [place] [address] [place] [address] Tamar Murphy APRN Assigned PCP 02/08/20 1 CHURN DRILLER [address] [place] [address] documented as of this encounter
--- OUTSIDE RECORDS SUMMARY | 2022-03-01 15:01 | XMS_ITS | Encounter Summary ---
:1965 Author Organization [place] Address [address] [facility] [place] [address] Care Team Providers Name Role Phone No Ref-Primary, Physician Primary Care Provider [phone] Annette Alvarez APRN ASSISTANT PROFESSOR OF PSYCHOLOGY Unavailable [phone] Goran Lloyd Primary Care Provider Jocelyn Davidson RD Unavailable Tamar Murphy TRAY SERVER ASSISTANT PROFESSOR OF PSYCHOLOGY Unavailable Nikita Gamble Primary Care Provider Reason for Visit Reason Comments Forms return to work Encounter Details Date Type Department Care Team Description 11/02/2017 [facility] Vu Isaacs, Fo dayan (return to [facility] Kim MERCADO work) [address] [place] [address] [address] [place] [phone] [place], [place] [phone] [facility] Social History Tobacco Use Types Packs/Day Years Used Date Smoking Tobacco: Never Smokeless Tobacco: Never Alcohol Use Standard Drinks/Week Comments Yes 0 (1 standard drink = 0.6 oz pure alcoho l) rare Sex Assigned at Date Recorded Female 03/04/2020 12:33 PM CORN COOKER COVID-19 Exposure Response Date Recorded In the last month, have you been in contact with No / Unsure 03/05/2020 11:41 AM CORN COOKER someone who was confirmed or suspected to have Coronavirus / COVID-19? documented as of this encounter Plan of Treatment Not on filedocumented as of this encounter Visit Diagnoses Not on filedocumented in this encounter Additional Health Concerns Infection Onset Date Last Indicated Resolved Time Rule Out COVID-19 02/26/2020 02/26/2020 02/27/2020 4:3 2 PM CORN COOKER documented as of this encounter Care Teams Med Dir Relationship Specialty Start Date End Date No Ref-Primary, PCP - General 12/25/14 12/28/17 Physician Goran Lloyd PCP - General Family Practice 12/29/17 05/21/20 [facility] [address] [place] [address] Nikita Gamble PCP - General [facility] 05/26/20 [facility] [address] [place] [address] Annette Alvarez, Nurse Practitioner Clinical Nurse 03/22/17 10/21/20 TRAY SERVER ASSISTANT PROFESSOR OF PSYCHOLOGY Specialist [address] [place], [place] [phone] Jocelyn Davidson RD Plush Dresser Dietitian, Registered 05/25/18 JET [place] [facility] [place] [address] Tamar Murphy APRN Assigned PCP 02/08/20 1 ASSISTANT PROFESSOR OF PSYCHOLOGY [address] [place] [address] documented as of this encounter
--- OUTSIDE RECORDS SUMMARY | 2022-03-01 15:01 | XMS_ITS | Encounter Summary ---
:1965 Author Organization [place] Address [address] [place] [address]. [place] [address] Care Team Providers Name Role Phone No Ref-Primary, Physician Primary Care Provider Annette Alvarez LEHR OPERATOR TEACHER PUBLIC HEALTH Unavailable Reason for Visit Reason Onset Date Comments Medication Question 03/22/2017 Encounter Details Date Type Department Care Team Description 03/22/2017 Telephone [facility] Annette Alvarez, Medication Question [place] LEHR OPERATOR TEACHER PUBLIC HEALTH [address] [phone] (Wo rk) Social History Tobacco Use Types Packs/Day Years Used Date Smoking Tobacco: Never Smokeless Tobacco: Never Alcohol Use Standard Drinks/Week Comments Yes 0 (1 standard drink = 0.6 oz pure alcoho l) rare Sex Assigned at Date Recorded Female 03/04/2020 12:33 PM RETAIL SOLAR ADVISOR documented as of this encounter Miscellaneous Notes Telephone Encounter - Karley Kessler CMA - 03/22/2017 11:46 AM RETAIL SOLAR ADVISOR There is a 2nd telephone message with the same info as below from today. I am closing this encounterto avoid confusion. Please see the other message for f/u. Karley Kessler CMA [place] SOLAR ADVISOR Telephone Encounter - JayOlga Violeta - 03/22/2017 [...] to reach patient: Home number on file [phone] (home) Best Time: anytime Can we leave a detailed message on this number? YES [place] SOLAR ADVISOR documented in this encounter Plan of Treatment Not on filedocumented as of this encounter Visit Diagnoses Not on filedocumented in this encounter Care Teams String Top Sealer Relationship Specialty Start Date End Date No Ref-Primary, PCP - General 12/25/14 12/28/17 Physician Annette Alvarez, Nurse Practitioner Clinical Nurse Specialist 10/21/20 LEHR OPERATOR TEACHER PUBLIC HEALTH [address] [place] [address] documented as of this encounter
--- OUTSIDE RECORDS SUMMARY | 2022-03-01 15:01 | XMS_ITS | Encounter Summary ---
:1965 Author Organization [place] Address [address] [place] [address]. [place] [address] Care Team Providers Name Role Phone No Ref-Primary, Physician Primary Care Provider Annette Alvarez DIGITAL MARKETING COORDINATOR VICE PRESIDENT LENDING Unavailable [phone] Reason for Visit Reason Onset Date Comments Refill Request 08/31/2017 naltrexone-bupropion (CONTRAVE) 8-90 MG per 12 hr tablet Encounter Details Date Type Department Care Team Description 08/31/2017 Refill [facility] Annette Alvarez, Refill Request [place] DIGITAL MARKETING COORDINATOR VICE PRESIDENT LENDING (naltrexone-bupropion [address] [address] [facility] (CONTRAVE) 8-90 MG per [place], [place] 12 hr t ablet) [phone] (Wo rk) Social History Tobacco Use Types Packs/Day Years Used Date Smoking Tobacco: Never Smokeless Tobacco: Never Alcohol Use Standard Drinks/Week Comments Yes 0 (1 standard drink = 0.6 oz pure alcoho l) rare Sex Assigned at Date Recorded Female 03/04/2020 12:33 PM CERTIFIED HYPERBARIC 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 Jasmyn Lee, RN -- [facility] Telephone Encounter - Lisandro Lena - 09/05/2017 [...] obesity documented in this encounter Care Teams End Worker Relationship Specialty Start Date End Date No Ref-Primary, PCP - General 12/25/14 12/28/17 Physician Annette Alvarez, Nurse Practitioner Clinical Nurse Specialist 10/21/20 KIM RODRIGUEZ [address] [place] [address] documented as of this encounter
--- OUTSIDE RECORDS SUMMARY | 2022-03-01 15:01 | XMS_ITS | Encounter Summary ---
:1965 Author Organization [place] Address [address] [place] [address]. [place] [address] Care Team Providers Name Role Phone No Ref-Primary, Physician Primary Care Provider [phone] Reason for Visit Reason Comments Abdominal Pain fell in shower 2 nights ago, not sure if related to her abdominal pain or not. No LOC after fall Encounter Details Date Type Department Care Team Description 12/25/2014 - 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 Follow up with UNDERGROUND HEAVY EQUIPMENT OPERATOR in 2 days for reevaluation, contact info provided. Discuss repeat ultrasound to monitor cyst size with UNDERGROUND HEAVY EQUIPMENT OPERATOR. Return to the ED for worsening [...] contain Tylenol?? (acetaminophen), including Vicodin??, Tylenol #3??, [place]??, Lortab??, and Percocet??. You should not take [...] She felt better after receiving dilaudid. 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 Review of Systems Constitutional: Negative for fever [...] sleep apnea. Recommended patient follow up with UNDERGROUND HEAVY EQUIPMENT OPERATOR in two days for reevaluation and [...] break through pain - Follow up with UNDERGROUND HEAVY EQUIPMENT OPERATOR in 2 days for reevaluation Discharge [...] Signature INR 1.60 (H) 0.86 - 1.14 [facility] Specimen Anatomical Collection Method Collection Time Receive d Time (Source) Location / / Volume Laterality 12/25/2014 10:48 12/25/2014 PM CDT 10:58 PM CDT Constance Wolff PA-C LAB - BLOOD ORDERABLES Performing Organization Address City/State/ZIP Code Phon e Number M [facility] [address] [place] [address] [facility] [address] [place] [address], [place] [phone] Lactic acid (12/25/2014 10:48 PM CDT) athologist Signature Lactic Acid 1.3 0.7 - 2.1 [place] mmol/L [facility] Specimen Anatomical Collection Method Collection Time Receive d Time (Source) Location / / Volume Laterality Blood specimen 12/25/2014 10:48 5 (specimen) PM CDT 10:57 PM CDT Constance Wolff PA-C LAB - BLOOD ORDERABLES Performing Organization Address City/State/ZIP Code Phon e Number [facility] [address] [place] [address] [facility] [address] [place] [address], [place] [phone] Lipase (12/25/2014 10:48 PM CDT) P athologist Signature Lipase 165 73 - 393 [place] U/L [facility] Specimen Anatomical Collection Method Collection Time Receive d Time (Source) Location / / Volume Laterality Blood specimen 12/25/2014 10:48 5 (specimen) PM CDT 10:58 PM CDT Constance Wolff PA-C LAB - BLOOD ORDERABLES Performing Organization Address City/State/ZIP Code Phon e Number M [facility] [address] [place] [address] [facility] [address] [place] [address], [place] [phone] (ABNORMAL) Comprehensive metabolic panel (12/25/2014 10:48 PM CDT) Analysis Performed At Patho logist Time Signature Sodium 137 133 - 144 [place] mmol/L [facility] Potassium 4.3 3.4 - 5.3 [place] mmol/L [facility] Chloride 104 94 - 109 [place] mmol/L [facility] Carbon Dioxide 29 20 - 32 [place] mmol/L [facility] Anion Gap 4 3 - 14 [place] mmol/L [facility] Glucose 77 70 - 99 [place] mg/dL [facility] Urea Nitrogen 16 7 - 30 [place] mg/dL [facility] Creatinine 1.27 (H) 0.52 - [place] 1.04 mg/dL [facility] GFR Estimate 45 (L) >60 [place] mL/min/1.[address] Comment: Non GFR Calc GFR Estimate If Black 54 (L) >60 mL/min/1.7m2 F [facility] Comment: GFR Calc Calcium 8.2 (L) 8.5 - 10.1 mg/dL [facility] Bilirubin Total 0.2 0.2 - 1.3 mg/dL [facility] Albumin 3.7 3.4 - 5.0 g/dL [facility] Protein Total 7.1 6.8 - 8.8 g/dL [facility] Alkaline Phosphatase 87 40 - 150 U/L [facility] ALT 24 0 - 50 U/L [facility] AST 16 0 - 45 U/L [facility] Specimen Anatomical Collection Method Collection Time Receive d Time (Source) Location / / Volume Laterality Blood specimen 12/25/2014 10:48 5 (specimen) PM CDT 10:58 PM CDT Constance Wolff PA-C LAB - BLOOD ORDERABLES Performing Organization Address City/State/ZIP Code Phon e Number M [facility] [address] [place] [address] [facility] [address] [place] [address], [place] [phone] (ABNORMAL) CBC with platelets + differential (12/25/2014 10:48 PM CDT) [facility] Method Time Signature WBC 10.7 4.0 - [place] 11.0 [facility] 10e9/[facility] RBC Count 3.98 3.8 - 5.2 [place] 10e12/L [facility] Hemoglobin 11.9 11.7 - [place] 15.7 g/dL [facility] Hematocrit 34.5 (L) 35.0 - [place] 47.0 % [facility] MCV 87 78 - 100 [place] fl [facility] MCH 29.9 26.5 - [place] 33.0 pg [facility] MCHC 34.5 31.5 - [place] 36.5 g/dL [facility] RDW 12.3 10.0 - [place] 15.0 % [facility] Platelet Count 290 150 - 450 [place] 10e9/L [facility] Diff Method Automated [facility] % Neutrophils 71.9 % [facility] % Lymphocytes 19.2 % [facility] % Monocytes 5.6 % [facility] % Eosinophils 2.7 % [facility] % Basophils 0.5 % [facility] % Immature 0.1 % [place] Granulocytes [facility] Absolute 7.7 1.6 - 8.3 [place] Neutrophil 10e9/L [facility] Absolute 2.1 0.8 - 5.3 [place] Lymphocytes 10e9/L [facility] Absolute 0.6 0.0 - 1.3 [place] Monocytes 10e9/L [facility] Absolute 0.3 0.0 - 0.7 [place] Eosinophils 10e9/L [facility] Absolute 0.1 0.0 - 0.2 [place] Basophils 10e9/L [facility] Abs Immature 0.0 0 - 0.4 [facility] 10e9/L [facility] Specimen Anatomical Collection Method Collection Time Receive d Time (Source) Location / / Volume Laterality Blood specimen 12/25/2014 10:48 5 (specimen) PM CDT 10:58 PM CDT Constance Wolff PA-C LAB - BLOOD ORDERABLES Performing Organization Address City/State/ZIP Code Phon e Number [facility] [address] [place] [address] [facility] [address] [place] [address], [place] [phone] HCG qualitative urine (12/25/2014 10:05 PM CDT) athologist Signature HCG Qual Urine Negative NEG [facility] Specimen Anatomical Collection Method Collection Time Receive d Time (Source) Location / / Volume Laterality 12/25/2014 10:05 12/25/2014 PM CDT 10:51 PM CDT Brian Neil DO LAB - URINE ORDERABLES Performing Organization Address City/State/ZIP Code Phon e Number [facility] [address] [place] [address] (ABNORMAL) *UA reflex to Microscopic (12/25/2014 10:05 PM CDT) Patholo gist Method Time Signature Color Urine Yellow [facility] Appearance Urine Clear [facility] Glucose Urine 100 (A) NEG mg/dL [facility] Bilirubin Urine Negative NEG [facility] Ketones Urine Negative NEG mg/dL [facility] Specific [place] 1.010 1.003 - [place] Urine 1.035 [facility] Blood Urine Negative NEG [facility] pH Urine 6.0 5.0 - 7.0 [place] pH [facility] Protein Albumin Negative NEG mg/dL [place] Urine [facility] Urobilinogen 0.2 0.2 - 1.0 [place] Urine EU/dL [facility] Nitrite Urine Negative NEG [facility] Leukocyte Negative NEG [place] Esterase Urine [facility] Source Midstream [place] Urine [facility] Specimen Anatomical Collection Method Collection Time Receive d Time (Source) Location / / Volume Laterality 12/25/2014 10:05 12/25/2014 PM CDT 10:13 PM CDT Gem Ribeiro MD LAB - URINE ORDERABLES Performing Organization Address City/State/ZIP Code Phon e Number [facility] [address] [address] documented in this [...] 1 tablet 1 tablet, Oral, ONCE, On Tue12/26/14 at 0621, For 1 dose, Maximum acetaminophen [...] Turner , VASQUEZ) Intravenous, 1,000 mL, ONCE, On Tue12/25/14 at 2240, For 1 dose HYDROmorphone (DILAUDID) injection 1 mg (COMPLETED) 235 (Given - Provider: Gale Higuera RN) 1 mg, Intravenous, ONCE, On Tue12/25/14 at 2323, For 1 dose morphine (PF) injection 4 mg (COMPLETED) 2246 (Given - Provider: Gale Higuera RN) 4 mg, Intravenous, ONCE, On Tue12/25/14 at 2240, For 1 dose ondansetron (ZOFRAN) injection 4 mg (COMPLETED) 2246 (Given - Provider: Gale Higuera RN) 4 mg, Intravenous, ONCE, Administer over 2 Minutes, On Tue12/25/14 at 2240, For 1 dose oxyCODONE-acetaminophen (PERCOCET) 5-325 MG per tablet 1 tablet (COMPLETED) 06 (Given - Provider: Katt Turner, VASQUEZ) 1 tablet, Oral, ONCE, On Tue12/26/14 at 0621, For 1 dose, Maximum acetaminophen dose from all sources= 75 mg/kg/day not to exceed 4 grams PRN Medication Order 12/24/2014 12/25/2014 12/26/2014 HYDROmorphone (DILAUDID) injection 1 mg (COMPLETED) 2307 (Given - Provider: Gale Higuera RN)2325 (Given - Provider: Gale Higuera, VASQUEZ) 0044 (Given - Provider: Gale Higuera, VASQUEZ) 1 mg, Intravenous, EVERY 15 MIN PRN, mod erate to severe pain, Starting on Tue12/25/14 at 2304, For 3 doses documented in this encounter Care Teams Cable Splicer Helper Relationship Specialty Start Date End Date No Ref-Primary, Physician PCP - General 12/25/14 12/28/17 documented as of this encounter
--- OUTSIDE RECORDS SUMMARY | 2022-03-01 15:01 | XMS_ITS | Encounter Summary ---
:1965 Author Organization [place] Address [address] [place] [address]. [place] [address] Care Team Providers Name Role Phone No Ref-Primary, Physician Primary Care Provider [phone] Reason for Visit Reason Onset Date Comments No Show Diabetes Education No Show 12/10/2016 Encounter Details Date Type Department Care Team Description 12/10/2016 [facility] Yadira Garcia No Show; [facility]Nurse Clinic Emmy Lewis RN Education; No Show Visit [address] [facility] [phone] [place], [place] (Work) [phone] Social History Tobacco Use Types Packs/Day Years Used Date Smoking Tobacco: Never Smokeless Tobacco: Never Alcohol Use Standard Drinks/Week Comments Yes 0 (1 standard drink = 0.6 oz pure alcoho l) rare Sex Assigned at Date Recorded 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 documented in this encounter Plan of Treatment Not on filedocumented as of this encounter Visit Diagnoses Diagnosis NO SHOW - Primary documented in this encounter Care Teams Statistical Consultant Relationship Specialty Start Date End Date No Ref-Primary, Physician PCP - General 12/25/14 12/28/17 documented as of this encounter
--- OUTSIDE RECORDS SUMMARY | 2022-03-01 15:01 | XMS_ITS | Encounter Summary ---
:1965 Author Organization [place] Address [facility] [place] [address] Care Team Providers Name Role Phone No Ref-Primary, Physician Primary Care Provider [phone] Annette Alvarez APRN LINING MACHINE TENDER Unavailable [phone] Reason for Visit Reason Onset Date Comments Appointment 10/19/2017 Encounter Details Date Type Department Care Team Description 10/19/2017 Telephone [facility] Milady Moss, Appointment Shahana MERCADO [address] [place] [address] [address] [place] [address] [place] [address] [phone] Social History Tobacco Use Types Packs/Day Years Used Date Smoking Tobacco: Never Smokeless Tobacco: Never Alcohol Use Standard Drinks/Week Comments Yes 0 (1 standard drink = 0.6 oz pure alcoho l) rare Sex Assigned at Date Recorded 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 She missed her appointment today and wanted to reschedule at the [place] location.I have scheduled patient as return with [...] be reached at: Home number on file [phone] (home) Best Time: Anytime. Can we leave a detailed message on this number? YES Call taken on 10/19/2017 at 7:27 PM by Bear documented in this encounter Plan of Treatment Not on filedocumented as of this encounter Visit Diagnoses Not on filedocumented in this encounter Care Teams Assembly Line Driver Relationship Specialty Start Date End Date No Ref-Primary, PCP - General 12/25/14 12/28/17 Physician Annette Alvarezne, Nurse Practitioner Clinical Nurse Specialist 10/21/20 ADMINISTRATIVE EXECUTIVE LINING MACHINE TENDER [address] [place] [address] documented as of this encounter
--- OUTSIDE RECORDS SUMMARY | 2022-03-01 15:01 | XMS_ITS | Encounter Summary ---
:1965 Author Organization [place] Address [facility] [place] [address] Care Team Providers Name Role Phone No Ref-Primary, Physician Primary Care Provider [phone] Reason for Visit Reason Comments Diabetes Encounter Details Date Type Department Care Team Description 02/04/2017 Office Visit [facility] Lashae Alvarez Type 1 rohan betes mellitus with complications (H) (Primary Dx); Clinic [place] KIM Monroe SENIOR INTERIOR DESIGNER Uncontrolled type 1 diabetes mellitus wi th stage 3 chronic kidney disease (H); [id number] [place] [address] Flatulence, eructation, and gas pain; [place], [place] PCOS (p olycystic ovarian syndrome) [id number] [phone] Social History Tobacco Use Types Packs/Day Years Used Date Smoking Tobacco: Never Smokeless Tobacco: Never Alcohol Use Standard Drinks/Week Comments Yes 0 (1 standard drink = 0.6 oz pure alcoho l) rare Sex Assigned at Date Recorded 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 encounter Last Filed Vital Signs Vital Sign Reading Time Taken Comments Blood Pressure 164/64 02/04/2017 9:19 AM STICK PULLER Pulse 76 02/04/2017 9:19 AM STICK PULLER Temperature 36.8 ??C (98.2 ??F) 02/04/2017 9:19 AM STICK PULLER Respiratory Rate 16 02/04/2017 9:19 AM STICK PULLER Oxygen Saturation - - Inhaled Oxygen Concentration - - Weight 112.7 kg (248 lb 6.4 oz) 02/04/2017 9:19 AM STICK PULLER Height - - Body Mass Index 34.16 12/25/2014 9:45 PM CDT documented in this encounter Patient Instructions Patient InstructionsLashae Alvarez APRN CNP - 02/04/2017 9:00 AM STICK PULLER We'll recheck creatinine today. If creatinine is [...] months after that. Lashae Alvarez NP Endocrinology K PULLER documented in this encounter Progress Notes Lashae [...] results when available. 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 Medication Reconciliation: complete K PULLER documented in this encounter Miscellaneous Notes Addendum Note - Lashae Alvarez APRN SENIOR INTERIOR DESIGNER - 02/13/2017 9:57 PM STICK PULLER Addended by: LASHAE ALVAREZ on: 02/13/2017 09:57 PM Modules accepted: Orders K PULLER documented in this encounter Plan of Treatment Not on filedocumented as of this encounter Procedures Procedure Name Priority Date/Time Associated Diagnosis Comme nts BASIC METABOLIC Routine 02/04/2017 10:30 Type 1 diabetes Resul ts for this PANEL AM STICK PULLER mellitus with procedure are in complications (H ) the results Uncontrolled type 1 section. diabetes mellitus with stage 3 chronic kidney disease (H) Flatulence, eructation, and gas pain documented in this encounter Results (ABNORMAL) Basic metabolic panel FUTURE 1yr (02/25/2017 12:05 PM STICK PULLER) [facility] Method Time Signature Sodium 138 133 - 144 02/26/2017 [facility] mmol/L 11:18 AM [facility] Potassium 4.9 3.4 - 5.3 02/26/2017 [facility] mmol/L 11:18 AM [facility] Chloride 106 94 - 109 02/26/2017 [facility] mmol/L 11:18 AM [facility] Carbon Dioxide 20 20 - 32 02/26/2017 [facility] mmol/L 11:18 AM [facility] Anion Gap 12 3 - 14 02/26/2017 [facility] mmol/L 11:18 AM [facility] Glucose 157 (H) 70 - 99 02/26/2017 [facility] mg/dL 11:18 AM [facility] Urea Nitrogen 25 7 - 30 02/26/2017 [facility] mg/dL 11:18 AM [facility] Creatinine 1.60 (H) 0.52 - 02/26/2017 [facility] 1.04 11:18 AM [facility] mg/dL [facility] GFR Estimate 34 (L) >60 02/26/2017 [facility] mL/min/1. 11:18 AM [facility] 7m2 [facility] Comment: Non GFR Calc GFR Estimate If 41 (L) >60 mL/min/1.7m2 02/26/2017 11:18 AM [facility] Black [facility] Comment: GFR Calc Calcium 8.8 8.5 - 10.1 mg/dL 02/26/2017 11:18 AM STICK PULLER [facility] Specimen Anatomical Collection Method Collection Time Receive d Time (Source) Location / / Volume Laterality Blood specimen 02/25/2017 12:05 7 (specimen) PM STICK PULLER 12:06 PM STICK PULLER Lashae Alvarez APRN SENIOR INTERIOR DESIGNER LAB - BLOOD ORDERABLES Performing Organization Address City/[facility]/ZIP Code Phon e Number [facility] [address] [place] [address] (ABNORMAL) Hemoglobin A1c (02/25/2017 12:05 PM STICK PULLER) P athologist Signature Hemoglobin A1C 7.6 (H) 4.3 - 6.0 02/25/2017 [facility] % 12:21 PM STICK PULLER [facility] Specimen Anatomical Collection Method Collection Time Receive d Time (Source) Location / / Volume Laterality Blood specimen 02/25/2017 12:05 7 (specimen) PM STICK PULLER 12:06 PM STICK PULLER Lashae Alvarez APRN SENIOR INTERIOR DESIGNER LAB - BLOOD ORDERABLES Performing Organization Address City/State/ZIP Code Phon e Number [facility] [address] [place] [address] (ABNORMAL) Basic metabolic panel (02/04/2017 10:30 AM STICK PULLER) Analysis Performed At Patho logist Time Signature Sodium 140 133 - 144 02/05/2017 [facility] mmol/L 1:47 PM [facility] Potassium 5.6 (H) 3.4 - 5.3 02/05/2017 [facility] mmol/L 1:47 PM [facility] Chloride 106 94 - 109 02/05/2017 [facility] mmol/L 1:47 PM [facility] Carbon Dioxide 25 20 - 32 02/05/2017 [facility] mmol/L 1:47 PM [facility] Anion Gap 9 3 - 14 02/05/2017 [facility] mmol/L 1:47 PM [facility] Glucose 134 (H) 70 - 99 02/05/2017 [facility] mg/dL 1:47 PM [facility] Comment: Non Fasting Urea Nitrogen 16 7 - 30 mg/dL 02/05/2017 1:47 PM [facility] Creatinine 1.40 (H) 0.52 - 1.04 02/05/2017 1:47 PM [facility] mg/dL [facility] GFR Estimate 40 (L) >60 mL/min/1.7m2 02/05/2017 1:47 PM F [facility] Comment: Non GFR Calc GFR Estimate If 48 (L) >60 mL/min/1.7m2 02/05/2017 1:47 P M [facility] Black [facility] Comment: GFR Calc Calcium 9.3 8.5 - 10.1 mg/dL 02/05/2017 1:47 PM [facility] Specimen Anatomical Collection Method Collection Time Receive d Time (Source) Location / / Volume Laterality Blood specimen 02/04/2017 10:30 7 (specimen) AM STICK PULLER 10:31 AM STICK PULLER Lashae Alvarez LABOR SPECIALIST SENIOR INTERIOR DESIGNER LAB - BLOOD ORDERABLES Performing Organization Address City/State/ZIP Code Phon e Number [facility] [address] [place] [address] documented in this encounter Visit Diagnoses Diagnosis Type 1 diabetes mellitus with complicati ons (H) - Primary Uncontrolled type 1 diabetes mellitus wi th stage 3 chronic kidney disease Type I (juvenile type) diabetes mellitus with renal manifestations, uncontrolled Flatulence, eructation, and gas pain PCOS (polycystic ovarian syndrome) Polycystic ovaries documented in this encounter Care Teams Box Spinner Relationship Specialty Start Date End Date No Ref-Primary, Physician PCP - General 12/25/14 12/28/17 documented as of this encounter
--- OUTSIDE RECORDS SUMMARY | 2022-03-01 15:01 | XMS_ITS | Encounter Summary ---
:1965 Author Organization [place] Address [address] [place] [address]. [place] [address] Care Team Providers Name Role Phone No Ref-Primary, Physician Primary Care Provider [phone] Reason for Referral Patient Education - Closed Specialty Diagnoses / Procedures Referred By Contact Refer red To Contact Diagnoses Uncontrolled type 1 diabetes mellitus with stage 3 chronic kidney disease Lashae Alvarez APRN [facility] [address] 084 83 [phone] Referral ID Status Reason Start Date Expiration Date Visits Requ ested Visits Authorized [id number] Closed 12/10/2016 12/10/2017 1 1 Reason for Visit Reason Comments Diabetes Encounter Details Date Type Department Care Team Description 11/25/[address] 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 Schedule an appointment with Yadira Garcia, clinical unit educator for prepump education. 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 - was having severe pain prior to surgery, thinks due topolycystic kidney disease Lives in [place] Complications: Diabetes Complications Description / Detail Diabetic [...] Follow-up: 1 month Lashae Alvarez NP Endocrinology [facility] CC: documented in this encounter Nursing Notes [...] Basic metabolic panel (11/25/2016 2:33 PM CDT) [facility] gist Method Time Signature Sodium 139 133 - 144 11/26/2016 [place] mmol/L 3:30 PM CDT [facility]ICS [facility] Potassium 4.4 3.4 - 5.3 11/26/2016 [facility] mmol/L 3:30 PM CDT [facility] Chloride 106 94 - 109 11/26/2016 [facility] mmol/L 3:30 PM CDT CL[facility]ICS [facility] Carbon Dioxide 24 20 - 32 11/26/2016 [facility] mmol/L 3:30 PM CDT [facility] Anion Gap 9 3 - 14 11/26/2016 [facility] 3[facility]30 PM [facility]T [facility] Glucose 117 (H) 70 - 99 11/26/2016 [facility] mg/dL 3:30 PM CDT [facility] Urea Nitrogen 30 7 - 30 11/26/2016 [facility] mg/dL 3:30 PM CDT [facility] Creatinine 2.10 (H) 0.52 - 11/26/2016 [facility] 1.04 3:30 PM CDT CLINICS mg/dL [facility] GFR Estimate 25 (L) >60 11/26/2016 [place] [facility] mL/min/1. 3:30 PM CDT CLINICS 7m2 [facility] Comment: Non GFR Calc GFR Estimate If 30 (L) >60 mL/min/1.7m2 11/26/2016 3:30 P [facility] Black T [facility] Comment: GFR Calc Calcium 8.9 8.5 - 10.1 mg/dL 11/26/2016 3:30 PM CDT [facility] Specimen Anatomical Collection Method Collection Time Receive d Time (Source) Location / / Volume Laterality Blood specimen 11/25/2016 2:33 PM 017 3:16 (specimen) CDT PM CDT Lashae Alvarez APRN CARD MAKER LAB - BLOOD ORDERABLES Performing Organization Address City/State/ZIP Code Phon e Number [facility] [address] [place] [address] Albumin Random Urine Quantitative with Creat Ratio (11/25/2016 2:33 PM CDT) Patholo gist Method Time Signature Creatinine 26 mg/dL 11/25/2016 [place] Urine 5:45 PM CDT [facility] Albumin Urine <5 mg/L 11/25/2016 [place] mg/L 5:49 PM CDT [facility] Albumin Urine Unable to 0 - 25 11/25/2016 [place] mg/g Cr calculate due mg/g Cr 5:49 PM CDT [facility] Specimen Anatomical Collection Method Collection Time Receive d Time (Source) Location / / Volume Laterality Urine specimen 11/25/2016 2:33 PM 017 2:34 (specimen) CDT PM CDT Lashae Alvarez APRN, CNP LAB - URINE ORDERABLES Performing Organization Address City/State/ZIP Code Phon e Number [facility] [address] [place] [address] [phone] [facility] [address] [place] [address], [facility] [phone] (ABNORMAL) Hemoglobin A1c (11/25/2016 2:33 PM CDT) P athologist Signature Hemoglobin A1C 7.8 (H) 4.3 - 6.0 11/25/2016 [place] % 2:57 PM CDT [facility] Comment: Results confirmed by repeat gail t Specimen Anatomical Collection Method Collection Time Receive d Time (Source) Location / / Volume Laterality Blood specimen 11/25/2016 2:33 PM 017 2:34 (specimen) CDT PM CDT Lashae Alvarez APRN, CNP LAB - BLOOD ORDERABLES Performing Organization Address City/[facility]/ZIP [facility] Phon e Number [facility] [address] [place] [address] documented in this encounter Visit Diagnoses Diagnosis Uncontrolled type 1 diabetes mellitus wi th stage 3 chronic kidney disease - Primary Type I (juvenile type) diabetes mellitus with renal manifestations, uncontrolled PCOS (polycystic ovarian syndrome) Polycystic ovaries documented in this encounter Care Teams Smash Piecer Relationship Specialty Start Date End Date No Ref-Primary, Physician PCP - General 12/25/14 12/28/17 documented as of this encounter
--- OUTSIDE RECORDS SUMMARY | 2022-03-01 15:02 | XMS_ITS | Clinical Summary ---
:1965 Author Organization [email or web address] [facility] [place] [address] Care Team Providers Name Role Phone None Unavailable Unavailable Pcp, No Primary Care Provider Unavailable [facility], C[place] Unavailable [phone] Allergies Active Allergy Reactions Severity Noted [...] 10 mg on 0 Act thai (MAXALT RECOVERY ANALYST) 10 mg the tongue 2 disintegrating times [...] Overview: Justinelena -4 (surveillance swab for [facility] care worker, not associated with acute illness) [...] a few week. Met with Naveen, the perioperative educator, ~2 months ago. Hypothyroidism Overview: Formatting of this note is dif ferent from the original. Levothyroxine. TSH (uIU/mL) Date Value 05/04/2016 0.24 (L) Knee osteoarthritis Overview: bilateral, has had injections. Hurts artie ly. Pain 7-8/10. Can't be seen at [place], owes them money. They suggested 2 total [...] RETR JULIEN Payne MD [facility] 01/25/2022 [facility] Nikita Gross Intra-abdominal abscess (HC) (Primary Dx ); - Encounter Nathaniel Lima HTN (hype rtension); 02/05/2022 MD Zbigniew Type 1 diabetes mellitus with hypoglycem ia and without coma (HC) Nathaniel Kulkarni MD Wirt, Hedy Ramírez, Elias Licona MD Odenbach, Paul Jeffrey, MD [facility], [facility] Hospitalists Of Discharge Summary - Phuc Shipley MD - 02/05/2022 2:00 PM CST Images from the original not e were not included. HOSPITALIST DISCHARGE SUMMAR Y ? ? Admission Date: 01/25/2022 Discharge Date: 02/05/2022 Discharge [...] placement 3 days prior to presenting to [place] ER on 01/24 with abdominal pain an [...] infusion in the ER. On admission to [facility] on 01/25, she was on 2L of [...] with re solution of fluid collection and SAARY from surgery remains. Klebsiella from body fluid [...] another unintentional bolus occurs she should call or Endocrinology office of Dr. Low to speak with the reconnaissance crewmember clinical neuropsychologist. Recommendations for Outpatie nt Provider ? ? PCP: No Pcp Recommendations for outpati ent provider Specific recommendations to be addressed at the follow up visit: FOLLOW UP blood pressure an d Creatinine (changed to norvasc from lisinopril). Ensure doing well at home with home care and determine when she could return to work. Ensure follow up with her surgeons in [place]. Discharge Medications Your Home Medicines START taking [...] Take 1 Tablet (10 mg) by mo moh once daily. cefdinir 300 mg capsule For [...] sent to [facility] [address] [address] Hours: Open 24 Hours ?? amLODIPine 10 [...] -- POTASSIUM 4.0 4.0 CHLORIDE 108 -- [id number] 24 -- ANIONGAP 8 -- BUN 13 [...] and I nstructions AMB CONSULT TO HOME [facility] Certification/F verona to Face Attestation: I [...] allowed practitioner. The lizz ent had a [id number] encou nter with a physician or an allowed non-physician practitioner and the encounter was related to the primary reason for home health. Date of the Face to Face Enc ounter: 02/05/2022. Based on my findings, review of the medical records, and/or collaboration with the other providers, the following services are medically necessary home health services: Prison This patient is confined to his/her home because: There is a taxing effort to leave the home due to abdominal abscess and infection. Patient requires the assista nce of another individual in order to leave the home. Provider following for home care services: No Pcp Electronically signed, Phuc Shipley MD [facility] Answering service: Contact on [facility] [employer] 02/05/2022 After Hospital Follow Up Ap pointment(s) Follow up with your Endocri nologist at [place] within 2-4 weeks. If transfer of care to Jammie Low MD is desired please call her office. Contact information: Jammie Low MD [address] [place] [address] When to follow up: 2 to 4 [...] Laresalberta in 2-3 weeks. Tuesday Clinic address: [address] [place] [address] - phone number is [phone] - You can reach infectious dis eases at [phone] NURSING COMMUNICATION [facility] Your first [facility] e Care visit is planned following hospital discharge. ?? An [facility] nurse or therapist will call you to schedule a visit. The call will occur the day before your first visit or by 9am the day of your first visit. ??Please call [phone] a nd ask for [facility] triage if you have further questions about home health. Thank you. Primary Care Provider ayo amezcua up appointment(s) When to follow up: 1 to 5 d ays Rehab Potential: Good Prison Eval and Tr eat Treatment Options: Full [...] medical emergency. [facility]? You were in the hospital fo r abscess in abdomen. You need to follow up with primary MD this next week and your surgeon in [place] in 1-2 weeks. Follow up with Infectious Disease as well. Pending Studies Lab results that may not be resulted at time of discharge: (From admission through now) None Total time spent on discharg e coordination: 55 minutes. Patient was seen and examined today. Phuc Shipley MD Hospitalist, [facility] ? ? [phone] ACE KEEPER 01/22/2022 Lab Requisition Tamar Solorzano MD from [...] Comments Blood Pressure 144/63 02/05/2022 7:34 AM FURNACE KEEPER Pulse 50 02/05/2022 7:34 AM FURNACE KEEPER Temperature 36.6 ??C (97.8 ??F) 02/05/2022 7:34 AM FURNACE KEEPER Respiratory Rate 18 02/05/2022 7:34 AM FURNACE KEEPER Oxygen Saturation 96% 02/05/2022 7:34 AM FURNACE KEEPER Inhaled Oxygen Concentration - - Weight 129 kg (284 lb 6.3 oz) 01/26/2022 6:00 AM CDT Height 180.3 cm (5' 11) 01/25/2022 2:00 AM CDT Body Mass Index 39.66 01/25/2022 2:00 AM CDT Plan of Treatment Upcoming Encounters Date Type Specialty Care Team Description 03/10/2022 Hospital Torey Fernandez Encounter MD [facility] [address] [place] [address] 03/10/2022 Surgery Torey Fernandez ENDOSCOPIC R ETROGRADDayanara Gibbons MD [facility]AT[facility] [address] [place] [address] Scheduled Procedures Name Priority Associated Diagnoses Date/Time ENDOSCOPIC RETROGRADE Tier 2 bile leak 03/10/2022 8:55 AM CHOLANGIOPANCREATOGRAPHY FURNACE KEEPER Health Maintenance Due Date Last Done Comments [...] Completed 08/24/2005 Medical Devices Implanted Type Area Quill Stripper Device Shelf Model / Identifier Expiration Serial / Lot Date Stent Biliary [id number] Advanix Duodenal Bend Plst N/A: 10/29/2023 [id number] / Implanted: Qty: 1 on 01/25/2022 by Nathaniel Donaldson MD at [facility] Common / Bile Duct [id number] Description: Stent Biliary [id number] Adva nix Duodenal Bend Plst Procedures Procedure Name Priority Date/Time Associated Comments Diagnosis SCAN CORRESP-IMAGING 02/09/2022 Results for 12:00 AM FURNACE KEEPER this procedure are in the results section. GLUCOSE METER Timed 02/05/2022 Results for 12:36 PM FURNACE KEEPER this procedure are in the results section. GLUCOSE METER Timed 02/05/2022 Results for 7:33 AM FURNACE KEEPER this procedure are in the results section. GLUCOSE METER Timed 02/05/2022 Results for 2:19 AM FURNACE KEEPER this procedure are in the results section. GLUCOSE METER Timed 02/04/2022 Results for 9:36 PM FURNACE KEEPER this procedure are in the results section. GLUCOSE METER Timed 02/04/2022 Results for 5:04 PM FURNACE KEEPER this procedure are in the results section. GLUCOSE METER Timed 02/04/2022 Results for 1:47 PM FURNACE KEEPER this procedure are in the results section. GLUCOSE METER Timed 02/04/2022 Results for 1:30 PM FURNACE KEEPER this procedure are in the results section. GLUCOSE METER Timed 02/04/2022 Results for 1:09 PM FURNACE KEEPER this procedure are in the results section. POTASSIUM Early AM 02/04/2022 Results for 11:08 AM FURNACE KEEPER this procedure are in the results section. CREATININE Early AM 02/04/2022 Results for 11:08 AM FURNACE KEEPER this procedure are in the results section. GLUCOSE METER Timed 02/04/2022 Results for 8:49 AM FURNACE KEEPER this procedure are in the results section. GLUCOSE METER Timed 02/04/2022 Results for 2:12 AM FURNACE KEEPER this procedure are in the results section. GLUCOSE METER Timed 02/03/2022 Results for 10:02 PM FURNACE KEEPER this procedure are in the results section. GLUCOSE METER Timed 02/03/2022 Results for 7:03 PM FURNACE KEEPER this procedure are in the results section. GLUCOSE METER Timed 02/03/2022 Results for 6:43 PM FURNACE KEEPER this procedure are in the results section. GLUCOSE METER Timed 02/03/2022 Results for 12:20 PM FURNACE KEEPER this procedure are in the results section. HEMOGLOBIN Early AM 02/03/2022 Results for 10:35 AM FURNACE KEEPER this procedure are in the results section. BASIC METABOLIC PANEL Early AM 02/03/2022 Result s for 10:35 AM FURNACE KEEPER this procedure are in the results section. GLUCOSE METER Timed 02/03/2022 Results for 8:09 AM FURNACE KEEPER this procedure are in the results section. GLUCOSE METER Timed 02/03/2022 Results for 2:38 AM FURNACE KEEPER this procedure are in the results section. GLUCOSE METER Timed 02/02/2022 Results for 9:54 PM FURNACE KEEPER this procedure are in the results section. GLUCOSE METER Timed 02/02/2022 Results for 5:47 PM FURNACE KEEPER this procedure are in the results section. GLUCOSE METER Timed 02/02/2022 Results for 11:50 AM FURNACE KEEPER this procedure are in the results section. CBC W PLT NO DIFF Early AM 02/02/2022 Results fo r 8:27 AM FURNACE KEEPER this procedure are in the results section. HEPATIC FUNCTION PANEL Early AM 02/02/2022 Resul ts for 8:26 AM FURNACE KEEPER this procedure are in the results section. BASIC METABOLIC PANEL Early AM 02/02/2022 Result s for 8:26 AM FURNACE KEEPER this procedure are in the results section. GLUCOSE METER Timed 02/02/2022 Results for 7:53 AM FURNACE KEEPER this procedure are in the results section. GLUCOSE METER Timed 02/02/2022 Results for 2:12 AM FURNACE KEEPER this procedure are in the results section. GLUCOSE METER Timed 02/01/2022 Results for 9:36 PM FURNACE KEEPER this procedure are in the results section. GLUCOSE METER Timed 02/01/2022 Results for 5:42 PM FURNACE KEEPER this procedure are in the results section. GLUCOSE METER Timed 02/01/2022 Results for 5:24 PM FURNACE KEEPER this procedure are in the results section. POTASSIUM Today 02/01/2022 Results for 4:58 PM FURNACE KEEPER this procedure are in the results section. GLUCOSE METER Timed 02/01/2022 Results for 4:56 PM FURNACE KEEPER this procedure are in the results section. XR PERCUTANEOUS TUBE REMOVAL Routine 02/01/2022 Results for 4:34 PM FURNACE KEEPER this procedure are in the results section. GLUCOSE METER Timed 02/01/2022 Results for 12:12 PM FURNACE KEEPER this procedure are in the results section. CT ABDOMEN PELVIS WO Routine 02/01/2022 Results for 11:51 AM FURNACE KEEPER this procedure are in the results section. GLUCOSE METER Timed 02/01/2022 Results for 8:33 AM FURNACE KEEPER this procedure are in the results section. GLUCOSE METER Timed 02/01/2022 Results for 8:19 AM FURNACE KEEPER this procedure are in the results section. GLUCOSE METER Timed 02/01/2022 Results for 4:10 AM FURNACE KEEPER this procedure are in the results section. GLUCOSE METER Timed 02/01/2022 Results for 12:55 AM FURNACE KEEPER this procedure are in the results section. GLUCOSE METER Timed 01/31/2022 Results for 9:50 PM FURNACE KEEPER this procedure are in the results section. GLUCOSE METER Timed 01/31/2022 Results for 5:24 PM FURNACE KEEPER this procedure are in the results section. GLUCOSE METER Timed 01/31/2022 Results for 1:30 PM FURNACE KEEPER this procedure are in the results section. ECHO COMPLETE W CONTRAST Routine 01/31/2022 Res ults for 1:02 PM FURNACE KEEPER this procedure are in the results section. HEMOGLOBIN Early AM 01/31/2022 Results for 10:19 AM FURNACE KEEPER this procedure are in the results section. WHITE BLOOD COUNT Early AM 01/31/2022 Results fo r 10:19 AM FURNACE KEEPER this procedure are in the results section. BASIC METABOLIC PANEL Early AM 01/31/2022 Result s for 10:19 AM FURNACE KEEPER this procedure are in the results section. GLUCOSE METER Timed 01/31/2022 Results for 10:03 AM FURNACE KEEPER this procedure are in the results section. GLUCOSE METER Timed 01/31/2022 Results for 7:45 AM FURNACE KEEPER this procedure are in the results section. GLUCOSE METER Timed 01/31/2022 Results for 7:29 AM FURNACE KEEPER this procedure are in the results section. GLUCOSE METER Timed 01/31/2022 Results for 7:22 AM FURNACE KEEPER this procedure are in the results section. GLUCOSE METER Timed 01/31/2022 Results for 6:51 AM FURNACE KEEPER this procedure are in the results section. GLUCOSE METER Timed 01/31/2022 Results for 2:13 AM FURNACE KEEPER this procedure are in the results section. [...] Months Results SCAN CORRESP-IMAGING (02/09/2022 12:00 AM FURNACE KEEPER) Narrative 02/09/2022 12:00 AM FURNACE KEEPER This result has an attachment that is no t available. Ordered by an unspecified provider. Other Clinical Staff OTHER (ABNORMAL) GLUCOSE METER (02/05/2022 12:36 PM FURNACE KEEPER)Only the most recent of112 resultswithin the time period is included. P athologist Signature GLUCOSE METER 109 (H) 65 - 100 02/05/2022 [facility] mg/dL 12:41 PM FURNACE KEEPER [facility] TRAL LABORATORY Specimen Anatomical Collection Method Collection Time Receive d Time (Source) Location / / Volume Laterality Blood BLOOD SPECIMEN / 02/05/2022 12:36 022 Unknown PM FURNACE KEEPER 12:40 PM FURNACE KEEPER Phuc Shipley MD CHEMISTRY Performing Organization Address City/State/ZIP Code Phon e Number [facility] [phone] [place] [address] LAB[facility]ATORY-CEN[facility]AL 2000 LABORATORY Potassium AM (02/04/2022 11:08 AM FURNACE KEEPER)Only the most recent of2 resultswithin the time period is included. athologist Signature POTASSIUM 4.0 3.5 - 5.0 02/04/2022 [facility] mmol/L 11:36 AM FURNACE KEEPER LAB[facility]ATORY[facility]EN[facility] AL LABORATORY Specimen Anatomical Collection Method / Collection Time Recei olga Time (Source) Location / Volume Laterality Blood BLOOD SPECIMEN / Non-Lab 02/04/2022 11:08 022 Unknown Venipuncture / AM FURNACE KEEPER 11:18 AM FURNACE KEEPER Unknown Phuc Shipley MD CHEMISTRY Performing Organization Address [facility] e Number [facility] [phone] [place] [id number] LAB[facility]ATORY[facility] 2000 LABORATORY (ABNORMAL) Creatinine AM (02/04/2022 11:08 AM FURNACE KEEPER)Only the most recent of2 resultswithin the time period is included. athologist Signature CREATININE 1.47 (H) 0.57 - 02/04/2022 [facility] 1.11 mg/dL 11:41 AM FURNACE KEEPER LAB[facility]ATORY-CENT RAL LABORATORY eGFR 42 (L) >90 02/04/2022 [facility] mL/min/1.7 11:41 AM FURNACE KEEPER LABORATORY-CENT 3m2 RAL LABORATORY Comment: As of [...] 02/04/2022 11:08 022 Unknown Venipuncture / AM FURNACE KEEPER 11:18 AM FURNACE KEEPER Unknown Phuc Shipley MD CHEMISTRY Performing Organization Address City/[facility] e Number [facility] [phone] [place] [address] LABORATORY[facility] 2000 LABORATORY (ABNORMAL) Hemoglobin AM (02/03/2022 10:35 AM FURNACE KEEPER)Only the most recent of3 resultswithin the time period is included. P athologist Signature HEMOGLOBIN 9.0 (L) 12.0 - 02/03/2022 [facility] 16.0 g/dL 11:02 AM FURNACE KEEPER [facility]ORY[facility] LABORATORY MCV 95 80 - 100 02/03/2022 [facility] fL 11:02 AM FURNACE KEEPER LABORATORY-CENT [facility] LABORATORY Specimen Anatomical Collection Method / Collection Time Recei olga Time (Source) Location / Volume Laterality Blood BLOOD SPECIMEN / Venipuncture / 02/03/2022 10:35 02/03 Unknown Unknown AM FURNACE KEEPER 10:50 AM FURNACE KEEPER Phuc Shipley MD HEMATOLOGY Performing Organization Address City/State/ZIP Code Phon e Number [facility] [address] [place] [address] LAB[facility]ATORY[facility] 2000 LABORATORY (ABNORMAL) Basic metabolic panel AM (02/03/2022 10:35 AM FURNACE KEEPER)Only the most recent of10 resultswithin the time period is included. Patholo gist Method Time Signature SODIUM 140 135 - 145 02/03/2022 [facility] mmol/L 11:21 AM FURNACE KEEPER [facility] TRAL LABORATORY POTASSIUM 4.0 3.5 - 5.0 02/03/2022 [facility] mmol/L 11:21 AM FURNACE KEEPER [facility] TRAL LABORATORY CHLORIDE 108 98 - 110 02/03/2022 [facility] mmol/L 11:21 AM FURNACE KEEPER [facility] TR[facility] LABOR[facility]ORY CO2,TOTAL 24 21 - 31 02/03/2022 [facility] mmol/L 11:21 AM FURNACE KEEPER [facility] TR[facility] LAB[facility]ORY ANION GAP 8 5 - 18 02/03/2022 [facility] 11:21 AM FURNACE KEEPER [facility]ORY GLUCOSE 92 65 - 100 02/03/2022 [facility] mg/dL 11:21 AM FURNACE KEEPER [facility] CALCIUM 8.4 (L) 8.5 - 10.5 02/03/2022 [facility] mg/dL 11:21 AM FURNACE KEEPER [facility]ATORY BUN 13 8 - 25 02/03/2022 [facility] mg/dL 11:21 AM FURNACE KEEPER [facility]ORY CREATININE 1.35 (H) 0.57 - 02/03/2022 [facility] 1.11 mg/dL 11:21 AM FURNACE KEEPER [facility] BUN/CREAT RATIO 10 10 - 20 02/03/[facility] FURNACE KEEPER [facility] TRAL LABORATORY eGFR 46 (L) >90 02/03/2022 [facility] mL/min/1.7 11:21 AM FURNACE KEEPER LAB[facility]ATORY-[facility] 3m2 TRAL LABORATORY Comment: As of [...] / 02/03/2022 10:35 02/03 Unknown Unknown AM FURNACE KEEPER 10:50 AM FURNACE KEEPER Phuc Shipley MD CHEMISTRY Performing Organization Address City/State/ZIP Code Phon e Number [facility] [phone] [place] [address] LAB[facility]ATORY[facility] 2000 LABORATORY (ABNORMAL) CBC no diff AM (02/02/2022 8:27 AM FURNACE KEEPER)Only the most recent of5 resultswithin the time period is included. [facility] gist Method Time Signature WHITE BLOOD 10.1 4.5 - 11.0 02/02/2022 [facility] COUNT thou/cu mm 9:21 AM FURNACE KEEPER [facility] TRAL LABORATORY RED BLOOD COUNT 2.93 (L) 4.00 - 02/02/2022 [facility] 5.20 9:21 AM FURNACE KEEPER LABORATORY-[facility] mil/cu mm TRAL LABORATORY HEMOGLOBIN 8.7 (L) 12.0 - 02/02/2022 [facility] 16.0 g/dL 9:21 AM FURNACE KEEPER [facility]ORY HEMATOCRIT 27.9 (L) 33.0 - 02/02/2022 [facility] 51.0 % 9:21 AM FURNACE KEEPER [facility] MCV 95 80 - 100 02/02/2022 [facility] fL 9:21 AM FURNACE KEEPER [facility] MCH 29.7 26.0 - 02/02/2022 [facility] 34.0 pg 9:21 AM FURNACE KEEPER [facility] MCHC 31.2 (L) 32.0 - 02/02/2022 [facility] 36.0 g/dL 9:21 AM FURNACE KEEPER [facility] TRAL LABORATORY RDW 14.0 11.5 - 02/02/2022 [facility] 15.5 % 9:21 AM FURNACE KEEPER [facility] LABOR[facility]ORY PLATELET COUNT 497 (H) 140 - 440 02/02/2022 [facility] thou/cu mm 9:21 AM FURNACE KEEPER [facility] LABORATORY MPV 10.0 6.5 - 11.0 02/02/2022 [facility] fL 9:21 AM FURNACE KEEPER [facility] TR[facility] LABORATORY NRBC 0.0 % 02/02/2022 [facility] 9:21 AM FURNACE KEEPER [facility] TRAL LABOR[facility]ORY ABS NRBC 0.0 thou /cu 02/02/2022 [facility] mm 9:21 AM FURNACE KEEPER [facility] TR[facility]OR[facility]ORY Specimen Anatomical Collection Method Collection Time Receive d Time (Source) Location / / Volume Laterality Blood BLOOD SPECIMEN / Butterfly / 02/02/2022 8:27 AM 02/02 9:01 Unknown Unknown FURNACE KEEPER AM FURNACE KEEPER Phuc Shipley MD HEMATOLOGY Performing Organization Address City/State/ZIP Code Phon e Number [facility] [phone] [place] [address] LABORATORY-CENTRAL 2000 LABORATORY (ABNORMAL) Hepatic function panel AM (02/02/2022 8:26 AM FURNACE KEEPER)Only the most recent of6 resultswithin the time period is included. [facility] gist Method Time Signature ALBUMIN 2.6 (L) 3.5 - 5.2 02/02/2022 [facility] g/dL 9:52 AM FURNACE KEEPER [facility] PROTEIN,TOTAL 5.3 (L) 6.0 - 8.0 02/02/2022 [facility] g/dL 9:52 AM FURNACE KEEPER [facility] GLOBULIN 2.7 2.0 - 3.7 02/02/2022 [facility] g/dL 9:52 AM FURNACE KEEPER [facility] A/G RATIO 1.0 1.0 - 2.0 02/02/2022 [facility] 9:52 AM FURNACE KEEPER [facility] BILIRUBIN,TOTAL 0.4 0.2 - 1.2 02/02/2022 [facility] mg/dL 9:52 AM FURNACE KEEPER [facility] TR[facility] LABORAT[facility] BILIRUBIN,DIRECT 0.3 0.1 - 0.5 02/02/2022 [facility] mg/dL 9:52 AM FURNACE KEEPER [facility] TRAL LAB[facility]AT[facility] BILIRUBIN,INDIRE 0.1 (L) 0.2 - 0.8 02/02/[address] [facility] [address] mg/dL 9:52 AM FURNACE KEEPER [facility] TRAL LABORATORY ALK PHOSPHATASE 95 50 - 136 02/02/2022 [facility] IU/L 9:52 AM FURNACE KEEPER [facility] TR[facility] LAB[facility]ORY ALT (SGPT) 24 8 - 45 02/02/2022 [facility] IU/L 9:52 AM FURNACE KEEPER [facility] TR[facility] AST (SGOT) 13 2 - 40 02/02/2022 [facility] IU/L 9:52 AM FURNACE KEEPER [facility] LAB[facility]ORY Specimen Anatomical Collection Method Collection Time Receive d Time (Source) Location / / Volume Laterality Blood BLOOD SPECIMEN / Butterfly / 02/02/2022 8:26 AM 02/02 9:01 Unknown Unknown FURNACE KEEPER AM FURNACE KEEPER Phuc Shipley MD CHEMISTRY Performing Organization Address City/State/ZIP Code Phon e Number [facility] [address] [place] [address] LABORATORY-CENTR[facility] 2000 LABORATORY XR PERCUTANEOUS TUBE REMOVAL (02/01/2022 4:34 PM FURNACE KEEPER) Anatomical Region Laterality Modality Abdomen Digital Radiography Specimen (Source) Anatomical Collection Method Collection Time Re ceived Time Location / / Volume Laterality 02/01/2022 4:37 PM FURNACE KEEPER Impressions 02/01/2022 4:37 PM FURNACE KEEPER Successful removal right upper quadrant percutaneous drain. Dictated by Shayan Duffy MD @ Jan ??7 2021 ??4:37PM (Electronically Signed) ?? Narrative 02/01/2022 4:37 PM FURNACE KEEPER For Patients: ??As a result of the [...] CT ABDOMEN PELVIS WO (02/01/2022 11:51 AM FURNACE KEEPER)Only the most recent of2 results within the time period is included. Anatomical Region Laterality Modality Abdomen, Pelvis, AORTA, LIVER, SPLEEN Co mputed Tomography Specimen (Source) Anatomical Collection Method Collection Time Re ceived Time Location / / Volume Laterality 02/01/2022 3:05 PM FURNACE KEEPER Impressions 02/01/2022 3:05 PM FURNACE KEEPER 1. Status post cholecystectomy. 2. Increased free air in the gallbladder fossa and tracking along catheter could be due to leak. 3. Moderate bilateral pleural effusions and bibasilar atelectasis/consolidation, increased. 4. Interval placement of percutaneous dr vicente anterior to the liver with resolution of associated fluid collection. Please note that all CT scans at this [facility] use dose modulation, iterative reconstruction, and/or weight-based dosing when appropriate to reduce radiation dose to as low as reasonably achievable. Dictated by Nikita Ortega MD @ 2 3:05:35 PM (Electronically Signed) Narrative 02/01/2022 3:05 PM FURNACE KEEPER For Patients: ??As a result of the Cures Act, medical imaging exams and procedure report s are released immediately into your [email or web address] medical record. ??You may view this report [...] provider. If you have questions, please contact [facility] care provider. INDICATION: Acute abdominal pain. [...] note that all CT scans at this [facility] use dose modulation, iterative reconstruction, and/or weight-based dosing when appropriate to reduce radiation dose to as low as reasonably achievable. Dictated by Nikita Ortega MD @ 2 3:05:35 PM (Electronically Signed) Mickey Curiel MD CT ECHO COMPLETE W CONTRAST (01/31/2022 1:02 PM FURNACE KEEPER) P athologist Signature AORTIC VALVE 11 mmHg MEAN PG EJECTION 77 % FRACTION PEAK TR 3.8 m/s VELOCITY LVEDD 4.4 cm EJECTION > 75% FRACTION Anatomical Region Laterality Modality HEART Ultrasound Specimen (Source) Anatomical Collection Method Collection Time Re ceived Time Location / / Volume Laterality 01/31/2022 12:09 PM FURNACE KEEPER Narrative 01/31/2022 2:56 PM FURNACE KEEPER ECHOCARDIOGRAM AMAURY CARBAJAL ? Accessi on#: ?? [id number] : ?1965 56 years Study Date: ?? 01/31/2022 12:09:30 PM Gender: F ?BP: ? 183/74 mmHg Height: 180.00 cm ?BSA: ?2.45 m? ?? Weight: 129.00 kg ?Tech: ? EF ? Referring MD: ELIAS WARREN Site: ? [facility] Reading Location: ANW IP Procedure: [...] . This study was interpreted by an [facility] redited facility. ??Final ?? Procedure Note Dickson Evans MD - 01/31/2022Formatt ing of this note might be different from the original. ECHOCARDIOGRAM AMAURY CARBAJAL : 1965 56 years Study Date: 01/31 12:09:30 PM Gender: F BP: 183/74 mmHg Height: 180.00 cm BSA: 2.45 m? ?? Weight: 129.00 kg Tech: EF Referring MD: ELIAS WARREN Site: Reading Location: ANW IP Procedure: 2D w/ [...] . This study was interpreted by an [facility] redited facility. Final Elias Warren MD ECHO ORD (ABNORMAL) WBC AM (01/31/2022 10:19 AM FURNACE KEEPER)Only the most recent of2 results within the time period is included. Analysis Performed At Patho logist Time Signature WHITE BLOOD 14.7 (H) 4.5 - 11.0 01/31/2022 [facility] COUNT thou/cu mm 10:37 AM FURNACE KEEPER LABORATORY-[facility] TRAL LABORATORY NRBC 0.0 % 01/31/2022 [facility] 10:37 AM FURNACE KEEPER LAB[facility]ATORY[facility] ABS NRBC 0.0 thou /cu 01/31/2022 [facility] mm 10:37 AM FURNACE KEEPER LAB[facility]ATORY-[facility] Specimen Anatomical Collection Method / Collection Time Recei olga Time (Source) Location / Volume Laterality Blood BLOOD SPECIMEN / Venipuncture / 01/31/2022 10:19 01/31 Unknown Unknown AM FURNACE KEEPER 10:31 AM FURNACE KEEPER Elias Warren MD HEMATOLOGY Performing Organization Address City/State/ZIP Code Phon e Number [facility] [address] [place] [address] LABORATORY-CENTRAL 1999 LABORATORY XR CHEST 1 VIEW [...] s are released immediately into your [facility] medical record. ??You may view this report [...] provider. If you have questions, please contact [facility] health care provider. HISTORY: Shortness of [...] VENOUS 7.45 (H) 7.32 - 7.43 01/30/2022 [facility] 1:30 PM CDT LABORATORY[facility] PCO2, VENOUS 32 (L) 41 - 51 01/30/2022 [facility] mmHg 1:30 PM CDT LABORATORY[facility] PO2, VENOUS 39 35 - 40 01/30/2022 [facility] mmHg 1:30 PM CDT LABORATORY-[facility] HCO3,VENOUS 22 22 - 29 01/30/2022 [facility] mmol/L 1:30 PM CDT LABORATORY-[facility] BASE EXCESS, -1.0 -2.0 - 3.0 01/30/2022 [facility] VENOUS, POCT 1:30 PM CDT LABORATORY-[facility] O2 SATURATION, 77 (H) 70 - 75 % 01/30/2022 [facility] VENOUS 1:30 PM CDT LABORATORY-[facility] LAB[facility] PATIENT 37.0 Degrees C 01/30/2022 [facility] TEMPERATURE 1:30 PM CDT LABORATORY[facility] Specimen Anatomical Collection Method / Collection Time Recei olga Time (Source) Location / Volume Laterality Blood VENOUS BLOOD Venipuncture / 01/30/2022 1:16 01/30/2022 1:23 SPECIMEN / Unknown Unknown PM CDT PM CDT Mickey Curiel MD CHEMISTRY Performing Organization Address City/State/ZIP Code Phon e Number [facility] [address] [place] [address] LABORATORY-CENTRAL 2000 LABORATORY (ABNORMAL) BILIRUBIN,TOTAL/DIRECT (01/30/2022 1:14 PM CDT) P athologist Signature BILIRUBIN,TOTA 0.8 0.2 - 1.2 01/30/2022 [facility] L mg/dL 1:52 PM CDT LABORATORY-[facility] LAB[facility]ATORY BILIRUBIN,DIRE 0.6 (H) 0.1 - 0.5 01/30/[address] [facility] [address] mg/dL 1:52 PM CDT LABORATORY-[facility] TR[facility] LABORATORY BILIRUBIN,EBONI 0.2 0.2 - 0.8 01/30/2022 [facility] RECT mg/dL 1:52 PM CDT LABORATORY-[facility] LAB[facility] Specimen Anatomical Collection Method / Collection Time Recei olga Time (Source) Location / Volume Laterality Blood BLOOD SPECIMEN / Venipuncture / 01/30/2022 1:14 2021 1:23 Unknown Unknown PM CDT PM CDT Mickey Curiel MD CHEMISTRY Performing Organization Address [facility] e Number [facility] [address] [place] [address] LABORATORY-CENTRAL 2000 LABORATORY AMMONIA (01/30/2022 1:14 PM CDT)Only the most recent of2 resultswithin the time period is included. athologist Signature AMMONIA 26 11 - 35 01/30/2022 [facility] umol/L 2:23 PM CDT LABORATORY-CENTR AL LABORATORY [...] Mickey Curiel MD CHEMISTRY Performing Organization Address [facility] e Number [facility] [address] [place] [address] LABORATORY-CENTRAL 2000 LABORATORY (ABNORMAL) ALT AM (01/30/2022 4:01 AM CDT) athologist Signature ALT (SGPT) 52 (H) 8 - 45 IU/L 01/30/2022 [facility] 5:33 AM CDT LABORATORY-[facility] LABORATORY Specimen Anatomical Collection Method Collection Time Receive d Time (Source) Location / / Volume Laterality Blood BLOOD SPECIMEN / Butterfly / 01/30/2022 4:01 AM 01/30 4:33 Unknown Unknown CDT AM CDT Elias Warren MD CHEMISTRY Performing Organization Address City/State/ZIP Code Phon e Number [facility] [address] [place] [address] LABORATORY-CENTRAL 1999 LABORATORY (ABNORMAL) AST AM (01/30/2022 4:01 AM CDT) P athologist Signature AST (SGOT) 52 (H) 2 - 40 IU/L 01/30/2022 [facility] 5:33 AM CDT LABORATORY-CENT RAL LABORATORY Specimen Anatomical Collection Method Collection Time Receive d Time (Source) Location / / Volume Laterality Blood BLOOD SPECIMEN / Butterfly / 01/30/2022 4:01 AM 01/30 4:33 Unknown Unknown CDT AM CDT Elias Warren MD CHEMISTRY Performing Organization Address City/State/ZIP Code Phon e Number [facility] [address] [place] [address] [place] [address] LABORATORY-CENTRAL 2000 LABORATORY SCAN-CARDIAC STRIP (01/28/2022 5:30 PM CDT) Narrative This result has an attachment that is no t available. Scanner OTHER (ABNORMAL) BODY FLUID CULTURE,STAIN (AEROBIC) (01/28/2022 4:16 PM CDT) [facility] Method Time Signature CULTURE RESULT (A) 02/03/2022 [facility] 9:24 AM FURNACE KEEPER LABORATORY-[facility] CULTURE 2+ Klebsiella 02/03/2022 [facility] oxytoca 9:24 AM FURNACE KEEPER LAB[facility]ATORY-[facility] LAB[facility] GRAM STAIN 2+ RBCs (A) 02/03/2022 [facility] 9:24 AM FURNACE KEEPER LABORATORY-[facility] LABORATORY GRAM STAIN 3+ PMNs (A) 02/03/2022 [facility] 9:24 AM FURNACE KEEPER LABORATORY-[facility] TRAL LABORATORY GRAM STAIN No Epithelial 02/03/2022 [facility] cells (A) 9:24 AM FURNACE KEEPER LABORATORY-[facility] TRAL LABORATORY GRAM STAIN 2+ Gram 02/03/2022 [facility] Negative 9:24 AM FURNACE KEEPER LABORATORY-ALLEN Bacilli (A) TRAL LABORATORY Specimen Anatomical [...] Elias Warren MD MICROBIOLOGY Performing Organization Address City/[facility] Phon e Number [facility] [phone] [place], [place] [id number] [address] LABORATORY-CENTRAL 1999 LABORATORY (ABNORMAL) ANAEROBIC CULTURE (01/28/2022 4:16 PM CDT) Analysis Performed At [facility] Time Signature CULTURE RESULT (A) 02/03/2022 [facility] 8:12 AM FURNACE KEEPER LABORATORY-[facility] TRAL LABORATORY CULTURE 1+ Gram 02/03/2022 [facility] negative 8:12 AM FURNACE KEEPER LABORATORY-ALLEN bacilli TRAL LABORATORY Comment: Non-viable for identification Specimen Anatomical Collection Method Collection Time Receive d Time (Source) Location / / Volume Laterality Other SPECIMEN FROM Non-Blood / 01/28/2022 4:16 PM 01/29/20 22 4:16 ABSCESS / Unknown Unknown CDT PM CDT Elias Warren MD MICROBIOLOGY Performing Organization Address City/[facility] Phon e Number [facility] [phone] [place] [address] LABORATORY-CENTRAL [address] DRAIN PERITONEAL RETROPERITONEAL INC GUIDE (01/28/2022 3:32 PM CDT) Anatomical Region Laterality Modality Abdomen Computed Tomography, Other Specimen (Source) Anatomical Collection Method Collection Time Re ceived Time Location / / Volume Laterality 01/28/2022 3:57 PM CDT Impressions 01/28/2022 3:57 PM CDT 1. Status post CT-guided placement of 14-Rwandan pigtail catheter into 9 x 4 cm right upper quadrant fluid collection. 50 cc of cloudy fluid obtained and sent to the lab. 2. No immediate complications. 3. Moderate sedation planned and used. Please note that all CT scans at this [facility] use dose modulation, iterative reconstruction, and/or weight-based dosing when appropriate to reduce radiation dose to as low as reasonably achievable. Dictated by Curtis Black MD @ 01/28/2022 3:57:30 PM (Electronically Signed) Narrative 01/28/2022 3:57 PM CDT For Patients: ??As a result of the Century Cures Act, medical imaging exams and procedure report s are released immediately into your [facility] medical record. ??You may view this report [...] monitored by a trained, dedicated nurse. The [facility] ician who performed the procedure provided 34 minutes of intra-service time with the patient. The patient was placed in supine positio n and localizing images were obtained. Anterior approach was chosen. The site was marked, and then prepped and draped in sterile fashion. Joseph protocol was followed. TIME-OU T conducted just [...] 14-Frenc h dilators. Over the wire, a 14-Rwandan pigtail catheter was placed with position verified [...] provider. If you have questions, please contact [facility] care provider. INDICATION: 6 x 4 [...] then prepped and draped in sterile fashion. Joseph protocol was followed. TIME-OU T conducted just [...] The tract was dilated with 10 and 14-Rwandan dilators. Over the wire, a 14-Rwandan pigtail catheter was placed with position verified by CT. The catheter was locked and fixed in position. The catheter was attached to a Norbert-Close drainage bag after 50 cc of cloudy fluid was obta ined and sent to the lab. No immediate complications. EBL less than 10 cc. IMPRESSION: 1. Status post CT-guided placement of 14 -Rwandan pigtail catheter into 9 x 4 cm right upper quadrant fluid collection. 50 cc of cloudy fluid obtained and sent to the lab. 2. No immediate complications. 3. Moderate sedation planned and used. Please note that all CT scans at this [facility] use dose modulation, iterative reconstruction, and/or [...] Signature MAGNESIUM 1.7 1.6 - 2.6 01/28/2022 [facility] mg/dL 9:55 AM CDT LABORATORY-CENTR AL LABORATORY Specimen Anatomical Collection Method / Collection Time Recei olga Time (Source) Location / Volume Laterality Blood BLOOD SPECIMEN / Venipuncture / 01/28/2022 9:03 2021 9:16 Unknown Unknown AM CDT AM CDT Elias Warren MD CHEMISTRY Performing Organization Address City/State/ZIP Code Phon e Number [facility] [phone] [place] [address] LABORATORY-CENTRAL 1999 LABORATORY SCAN-CARDIAC STRIP (01/27/2022 3:00 PM CDT) Narrative This result has an attachment that is no t available. Scanner OTHER (ABNORMAL) CK TOTAL (01/27/2022 8:46 AM CDT)Only the most recent of4 results within the time period is included. P athologist Signature CK,TOTAL 1,405 (H) 29 - 168 01/27/2022 [facility] IU/L 9:48 AM CDT [facility]ATORY[facility] Specimen Anatomical Collection Method Collection Time Receive d Time (Source) Location / / Volume Laterality Blood BLOOD SPECIMEN / Butterfly / 01/27/2022 8:46 AM 01/27 9:06 Unknown Unknown CDT AM CDT Angela Walker CARTON FORMING MACHINE HELPER CHEMISTRY Performing Organization Address City/State/ZIP Code Phon e Number [facility] [phone] [place] [address] LABORATORY-CENTRAL 2000 LABORATORY SCAN-CARDIAC STRIP (01/27/2022 8:08 AM CDT) Narrative This result has an attachment that is no t available. Scanner OTHER (ABNORMAL) COMPREHENSIVE URINE DRUG SCREEN (01/27/2022 2:08 AM CDT) Patholo gist Method Time Signature ACETAMINOPHEN POS (A) <=10 01/27/2022 [place] URINE mcg/mL 2:57 PM [facility] AMPHETAMINE URINE NEG <=500 01/27/2022 [place] ng/mL 2:57 PM [facility] BARBITURATE URINE NEG <=200 01/27/2022 [place] ng/mL 2:57 PM [facility] BENZODIAZEPINE NEG <=100 01/27/2022 [place] [facility] ng/mL 2:57 PM [facility] BUPRENORPHRINE NEG <=5 ng/mL 01/27/2022 [place] URINE 2:57 PM [facility] COCAINE METAB NEG <=300 01/27/2022 [place] URINE ng/mL 2:57 PM [facility] ETHANOL URINE NEG <=10 01/27/2022 [place] mg/dL 2:57 PM [facility] FENTANYL URINE NEG <=4 ng/mL 01/27/2022 [place] 2:57 PM [facility] METHADONE URINE NEG <=300 01/27/2022 [place] ng/mL 2:57 PM [facility] OPIATES URINE NEG <=300 01/27/2022 [place] ng/mL 2:57 PM [facility] OXYCODONE URINE POS (A) <=100 01/27/2022 [place] ng/mL 2:57 PM [facility] PCP URINE NEG <=25 01/27/2022 [place] ng/mL 2:57 PM [facility] SALICYLATE URINE NEG <=10 01/27/2022 [place] mg/dL 2:57 PM [facility] THC 50 URINE NEG <=50 01/27/2022 [place] ng/mL 2:57 PM [facility] MASS SPECTROMETRY See Below 01/27/2022 [place] URINE 2:57 PM [facility] Comment: Acetaminophen, Citalopram, Ephe drine/Pseudoephedrine, Lidocaine, Lidocaine metabolite, Topiramate, and Topiramate m etabolite present. Specimen Anatomical Collection Method Collection Time Receive d Time (Source) Location / / Volume Laterality Urine URINE SPECIMEN / Non-Blood / 01/27/2022 2:08 AM 01/27 2:16 Unknown Unknown CDT AM CDT [facility] - 022 2:57 PM CDT Release to patient->Immediate Angela Walker CARTON FORMING MACHINE HELPER URINE Performing Organization Address City/State/ZIP Code Phon e Number [address] MAIL CODE [phone] (ABNORMAL) PROCALCITONIN (01/26/2022 4:52 PM CDT)Only the most recent of2 resultswithin the time period is included. [facility] Method Time Signature PROCALCITONIN 27.53 (H) <0.50 01/26/2022 [facility] ng/ml 6:21 PM CDT LABORATORY-[facility] TRAL LABORATORY Specimen Anatomical Collection Method Collection Time Receive d Time (Source) Location / / Volume Laterality Blood BLOOD SPECIMEN / Butterfly / 01/26/2022 4:52 PM 01/26 4:59 Unknown Unknown CDT PM CDT Narrative [facility] LABORATORY-CENTRAL LABORAT ORY - 01/26/2022 6:21 PM [...] concentrations <2.0 ng/mL are obtained. Angela Walker CARTON FORMING MACHINE HELPER SEND OUTS Performing Organization Address City/State/ZIP Code Phon e Number [facility] [address] [place] [address] LABORATORY-CENTRAL 2000 LABORATORY (ABNORMAL) TSH FOR ADD ON (01/26/2022 4:52 PM CDT) P athologist Signature TSH 0.18 (L) 0.35 - 4.94 01/26/2022 [facility] uIU/mL 6:09 PM CDT LABORATORY-[facility] LABORATORY Specimen Anatomical Collection Method Collection Time Receive d Time (Source) Location / / Volume Laterality Blood BLOOD SPECIMEN / Butterfly / 01/26/2022 4:52 PM 01/26 4:59 Unknown Unknown CDT PM CDT Narrative [facility] LABORATORY-CENTRAL LABORAT ORY - 01/26/2022 6:09 PM CDT In Adults, TSH values between 5.00 and 10.00 uIU/ml do not necessarily indicate the presence of Hyp othyroidism. Correlation with clinical findings such as presence of goiter and/or Thyroperoxidase (TPO) Antibody ma y be helpful. For more information please refer to COBY 20 ; 291: 228-238. Marilou Shereen ANDRADE CHEMISTRY Performing Organization Address [facility]/ZIP Code Phon e Number [facility] [phone] [place] [id number] LABORATORY-CENTRAL 2000 LABORATORY T4,FREE (01/26/2022 4:52 PM CDT) athologist Signature T4,FREE 0.86 0.70 - 1.80 01/26/2022 [facility] ng/dL 6:09 PM CDT LABORATORY-CENTR AL LABORATORY Specimen Anatomical Collection Method Collection Time Receive d Time (Source) Location / / Volume Laterality Blood BLOOD SPECIMEN / Butterfly / 01/26/2022 4:52 PM 01/26 4:59 Unknown Unknown CDT PM CDT Marilou Shereen ANDRADE CHEMISTRY Performing Organization Address [facility] Phon e Number [facility] [phone] [place] [phone] LABORATORY-CENTRAL 1999 LABORATORY CALCIUM [facility] DRAW ONLY (01/26/2022 4:52 PM CDT)Only the most recent of3 resultswithin the time period is included. athologist [facility] CALCIUM,IONIZE 1.22 1.15 - 01/26/2022 [facility] D 1.27 5:04 PM CDT LABORATORY-CENT mmol/L RAL LABORATORY Specimen Anatomical Collection Method Collection Time Receive d Time (Source) Location / / Volume Laterality Blood BLOOD SPECIMEN / Butterfly / 01/26/2022 4:52 PM 01/26 4:59 Unknown Unknown CDT PM CDT Hedy Milligan DO CHEMISTRY Performing Organization Address [facility] Phon e Number [facility] [phone] [place] [address] LABORATORY-CENTRAL [address] HEAD BRAIN WO [...] note that all CT scans at this [facility] use dose modulation, iterative reconstruction, and/or weight-based dosing when appropriate to reduce radiation dose to as low as reasonably achievable. Dictated by Ramila Patten MD @ 01/26/2022 1 1:00:42 AM (Electronically Signed) Narrative 01/26/2022 11:00 AM CDT For Patients: ??As a result of the Cures Act, medical imaging exams and procedure report s are released immediately into your [email or web address] medical record. ??You may view this report [...] note that all CT scans at this [facility] use dose modulation, iterative reconstruction, and/or weight-based dosing when appropriate to reduce radiation dose to as low as reasonably achievable. Dictated by Ramila Patten MD @ 01/26/2022 1 1:00:42 AM (Electronically Signed) Angela Walker CARTON FORMING MACHINE HELPER CT SCAN-CARDIAC STRIP (01/26/2022 7:21 AM CDT) [...] 4:23 Unknown Unknown CDT AM CDT Narrative [facility] - 01/27/2022 2:05 PM CDT ? (<5.7%) ?Normal ? (5.7% to 6.4%) ? Indicates pr ediabetes ? (>=6.5%) ? Confirms diabetes Falsely low levels may be seen with: Recent Transfusion, Recent Significant B lood Loss, Hemolytic Diseases, or Falsely elevated levels may be seen with : Untreated Anemias, Splenectomy Naveen Marcial MD CHEMISTRY Performing Organization Address City/State/ZIP Code Phon e Number [facility] SENDOUT INTERNAL ZIP [place], [place] [phone] [facility] ,SERUM (01/26/2022 4:17 AM CDT) Analysis [...] Organization Address City/State/ZIP Code Phon e Number [facility] [address] [place] [address] [place] [address] LABORATORY-CENTRAL 2000 LABORATORY (ABNORMAL) LIPASE (01/26/2022 4:17 AM CDT)Only the most recent of2 resultswithin the time period is included. P athologist Signature LIPASE <5.0 (L) 8.0 - 78.0 01/26/2022 [facility] IU/L 10:36 AM CDT LABORATORY-CENT RAL LABORATORY Specimen Anatomical Collection Method Collection Time Receive d Time (Source) Location / / Volume Laterality Blood BLOOD SPECIMEN / Butterfly / 01/26/2022 4:17 AM 01/26 4:23 Unknown Unknown CDT AM CDT Quita MIRAMONTES CHEMISTRY Performing Organization Address City/State/ZIP Code Phon e Number [facility] [address] [facility] [place] [address] LABORATORY-CENTRAL 2000 LABORATORY (ABNORMAL) C-REACTIVE PROTEIN (01/25/2022 9:40 PM CDT) Patholo gist Method Time Signature C-REACTIVE 42.31 (H) <0.50 01/25/2022 [facility] PROTEIN mg/dL 11:23 PM CDT LABORATORY-ALLEN TRAL LABORATORY Specimen Anatomical Collection Method / Collection Time Recei olga Time (Source) Location / Volume Laterality Blood BLOOD SPECIMEN / Venipuncture / 01/25/2022 9:40 2021 9:53 Unknown Unknown PM CDT PM CDT [facility] CHE[facility] Performing Organization Address City/State/ZIP Code Phon e Number [facility] [address] [place] [address] LABORATORY-CENTRAL 1999 LABORATORY (ABNORMAL) Arterial Blood Gas (01/25/2022 8:13 PM CDT)Only the most recent of2 resultswithin the time period is included. Analysis Performed At Patho logist Time Signature PH, ARTERIAL 7.34 (L) 7.35 - 01/25/2022 [facility] 7.45 8:28 PM CDT LABORATORY-[facility] TRAL LABORATORY PCO2, ARTERIAL 39 32 - 45 01/25/2022 [facility] mmHg 8:28 PM CDT LABORATORY-[facility] TRAL LABORATORY PO2, ARTERIAL 393 (H) 83 - 108 01/25/2022 [facility] mmHg 8:28 PM CDT LABORATORY-[facility] TRAL LABORATORY HCO3, ARTERIAL 21 21 - 28 01/25/2022 [facility] mmol/L 8:28 PM CDT LABORATORY-ALLEN TRAL LABORATORY BASE EXCESS, -4.0 (L) -2.0 - 3.0 01/25/2022 [facility] ARTERIAL 8:28 PM CDT LABORATORY-ALLEN TRAL LABORATORY O2 SATURATION, 100 (H) 94 - 98 % 01/25/2022 [facility] ARTERIAL 8:28 PM CDT LABORATORY-ALLEN TRAL LABORATORY INSPIRED O2 100 01/25/2022 [facility] 8:28 PM CDT LABORATORY-[facility] TRAL LABORATORY Comment: Unit of Measure: Liters (L) if <=20; Percent (%) if >20 PATIENT TEMPERATURE 38.2 Degrees C 01/25/2022 8:28 PM [facility] CDT LABORATORY-CENTRAL LABORATORY Specimen Anatomical Collection Method / Collection Time Recei olga Time (Source) Location / Volume Laterality Blood ARTERIAL BLOOD Non-Lab 01/25/2022 8:13 01/25/2022 8:21 SPECIMEN / Unknown Venipuncture / PM CDT PM CDT Unknown Nathaniel Lima MD CHEMISTRY Performing Organization Address City/State/ZIP Code Phon e Number [facility] [address] [place] [address] LABORATORY-CENTRAL 1999 LABORATORY XR ABDOMEN 2 VIEWS [...] s are released immediately into your [facility] medical record. ??You may view this report [...] NOW QTc 477 ms BEYOND NOW P Kechi 10 degrees BEYOND NOW R Kechi 66 degrees BEYOND NOW T Kechi 12 degrees BEYOND NOW Specimen Anatomical Collection Method Collection Time Receive d Time (Source) Location / / Volume Laterality 01/25/2022 6:34 AM 5:41 CDT PM CDT Nathaniel Lima MD EKG ORD Performing Organization Address City/State/ZIP Code Phon e Number [place] NOW [place], [place] XR ERCP BILIARY ONLY (01/25/2022 4:35 [...] Eight images obtained during ERCP. 1 min [place] 47 seconds of fluoroscopy time. Procedure Note Nikita Ortega MD - 01/25/2022Fo rmatting of this note might be different from the original. For Patients: As a result of the Cures Act, medical imaging exams and procedure reports are released immediately into your electronic medical record. You may view this report before your referring provider. If you have questions, please contact [facility] health care provider. INDICATION: Cholangitis. TECHNIQUE: Eight images obtained during ERCP. 1 min [place] 47 seconds of fluoroscopy time. IMPRESSION: Guidewire [...] Donaldson MD - 01/25/2022 4:33 AM CDT [facility] Patient Name: Amaury Carbajal Procedure José e: 01/25/2022 Gender: Female Date of : 1965 Admit Type: Inpatient Procedure: ERCP Proceduralist: MD Kaleigh Morris Gastroenterology FE Indications/Pre-Op Diagnosis: Suspected ascending cholangitis Medications: General Anesthesia Procedure Description: Risk of bleeding, infection, perforatio n, pancreatitis, need for surgery, remote chance of and alt ernatives were discussed, and the patient gave informed consent. The [facility]-[id number] endoscope was pas sed through the mouth, and advanced to the duodenum and used to in ject contrast into the bile duct. The ERCP was accomplished with ease. Th e patient tolerated the procedure well. Complications: No immediate complication s. Estimated Blood Loss & Specimen: Estimated blood loss: none. Specimen collected: None Findings: A head cashier film of the abdomen was obtaine d. [...] mm biliary sphincterotomy was made with a [employer] e sphincterotome using ERBE electrocautery. There was [...] WITH AUTO DIFFERENTIAL (01/25/2022 2:48 AM CDT) [facility] Method Time Signature WHITE BLOOD 12.6 [...] LABORATORY HEMATOCRIT 31.7 (L) 33.0 - 01/25/2022 [facility] 51.0 % 3:17 AM CDT LABORATORY-[facility] TRAL LABORATORY MCV 93 80 - 100 01/25/2022 [facility] fL 3:17 AM CDT LABORATORY-[facility] TRAL LABORATORY MCH 30.2 26.0 - 01/25/2022 [facility] 34.0 pg 3:17 AM CDT LABORATORY-[facility] TRAL LABORATORY MCHC 32.5 32.0 - 01/25/2022 [facility] 36.0 g/dL 3:17 AM CDT LABORATORY-[facility] TRAL LABORATORY RDW 13.1 11.5 - 01/25/2022 [facility] 15.5 % 3:17 AM CDT LABORATORY-[facility] TRAL LABORATORY PLATELET COUNT 256 140 - 440 01/25/2022 [facility] thou/cu 3:17 AM CDT LABORATORY-[facility] mm TRAL LABORATORY MPV 10.6 6.5 - 01/25/2022 [facility] 11.0 fL 3:17 AM CDT LABORATORY-[facility] TRAL LABORATORY NRBC 0.0 % 01/25/2022 [facility] 3:17 AM CDT LABORATORY-[facility] TRAL LABORATORY ABS NRBC 0.0 thou /cu 01/25/2022 [facility] mm 3:17 AM CDT LABORATORY-[facility] TRAL LABORATORY % NEUT 80.8 % 01/25/2022 [facility] 3:17 AM CDT LABORATORY-[facility] TRAL LABORATORY % LYMPH 8.4 % 01/25/2022 [facility] 3:17 AM CDT LABORATORY-[facility] TRAL LABORATORY % MONO 8.1 % 01/25/2022 [facility] 3:17 AM CDT LABORATORY-[facility] TRAL LABORATORY % EOS 1.4 % 01/25/2022 [facility] 3:17 AM CDT LABORATORY-[facility] TRAL LABORATORY % BASO 0.5 % 01/25/2022 [facility] 3:17 AM CDT LABORATORY-[facility] TRAL LABORATORY % IMMATURE GRAN 0.8 % 01/25/2022 [facility] (METAS,MYELOS,UT 3:17 AM CDT LABORATORY- [facility] OS) TRAL LABORATORY ABSOLUTE 10.2 (H) 1.7 - 7.0 01/25/2022 [facility] NEUTROPHILS thou/cu 3:17 AM CDT LABORATORY-[facility] mm TRAL LABORATORY ABSOLUTE 1.1 0.9 - 2.9 01/25/2022 [facility] LYMPHOCYTES thou/cu 3:17 AM CDT LABORATORY-[facility] mm TRAL LABORATORY ABSOLUTE 1.0 (H) <0.9 01/25/2022 [facility] MONOCYTES thou/cu 3:17 AM CDT LABORATORY-[facility] mm TRAL LABORATORY ABSOLUTE 0.2 <0.5 01/25/2022 [facility] EOSINOPHILS thou/cu 3:17 AM CDT LABORATORY-[facility] mm TRAL LABORATORY ABSOLUTE 0.1 <0.3 01/25/2022 [facility] BASOPHILS thou/cu 3:17 AM CDT LABORATORY-[facility] mm TRAL LABORATORY ABSOLUTE 0.1 <0.3 01/25/2022 [facility] IMMATURE thou/cu 3:17 AM CDT LABORATORY-[facility] GRANULOCYTES(MET mm TRAL ,MYELOS,PROS) LABORATORY Specimen Anatomical Collection Method Collection Time Receive d Time (Source) Location / / Volume Laterality Blood BLOOD SPECIMEN / IV Start / Unknown 01/25/2022 2:48 AM 01/25/2022 3:05 Unknown CDT AM CDT Nathaniel Lima MD HEMATOLOGY Performing Organization Address City/State/ZIP Code Phon e Number [facility] [address] [place] [address] LABORATORY-CENTRAL 2000 LABORATORY LACTATE VENOUS (01/25/2022 2:48 AM CDT) P athologist Signature LACTATE,VENOUS 1.5 0.5 - 2.0 01/25/2022 [facility] mmol/L 3:25 AM CDT LABORATORY-CENT RAL LABORATORY Specimen Anatomical Collection Method Collection Time Receive d Time (Source) Location / / Volume Laterality Blood BLOOD SPECIMEN / IV Start / Unknown 01/25/2022 2:48 AM 01/25/2022 3:07 Unknown CDT AM CDT Nathaniel Lima MD CHEMISTRY Performing Organization Address City/State/ZIP Code Phon e Number [facility] [address] [place] [address] [place] [address] LABORATORY-CENTRAL 1999 LABORATORY Blood Culture (01/25/2022 2:48 [...] Nathaniel Lima MD MICROBIOLOGY Performing Organization Address City/[facility]/ZIP Code Phon e Number [facility] [phone] [place] [address] LABORATORY-CENTRAL 2000 LABORATORY TYPE & SCREEN (01/25/2022 2:48 AM CDT) [facility] gist Method Time Signature ABORH A Rh 01/25/2022 [facility] Positive 5:05 AM CDT LAB-CENTRAL LAB BLOOD BANK ANTIBODY Negative Negative 01/25/2022 [facility] SCREEN 5:05 AM CDT LAB-CENTRAL LAB BLOOD BANK SPECIMEN 01/28/22 01/25/2022 [facility] EXPIRATION 23:59 5:05 AM CDT LAB-CENTRAL DATE/TIME LAB BLOOD BANK Specimen Anatomical Collection Method Collection Time Receive d Time (Source) Location / / Volume Laterality Blood BLOOD SPECIMEN / IV Start / Unknown 01/25/2022 2:48 AM 01/25/2022 3:05 Unknown CDT AM CDT Nathaniel Lima MD BLOOD BANK Performing Organization Address City/[facility]/ZIP Code Phon e Number [facility] LAB-CENTRAL LAB [address] [place] [address] 5 [phone] BLOOD BANK (ABNORMAL) Protime - [...] 01/25/2022 3:06 Unknown CDT AM CDT Narrative [facility] LABORATORY-CENTRAL LABORAT ORY - 01/25/2022 3:25 AM [...] Nathaniel Lima MD HEMATOLOGY Performing Organization Address [facility] Phon e Number [facility] [phone] [place] [address] LABORATORY-CENTRAL 2000 LABORATORY Phosphorus (01/25/2022 2:48 AM CDT) athologist Signature PHOSPHORUS 4.6 2.3 - 4.7 01/25/2022 [facility] mg/dL 3:28 AM CDT LAB[facility]ATORY-[facility] Specimen Anatomical Collection Method Collection Time Receive d Time (Source) Location / / Volume Laterality Blood BLOOD SPECIMEN / IV Start / Unknown 01/25/2022 2:48 AM 01/25/2022 3:06 Unknown CDT AM CDT Nathaniel Lima MD CHEMISTRY Performing Organization Address [facility] Phon e Number [facility] [phone] [place] [address] LABORATORY-[place] [address] LABORATORY (ABNORMAL) COMP METABOLIC PANEL (01/25/2022 2:48 AM CDT) [facility] gist Method Time Signature SODIUM 134 (L) 135 - 145 01/25/2022 [facility] mmol/L 3:30 AM CDT LABORATORY-[facility] TRAL LABORATORY POTASSIUM 4.2 3.5 - 5.0 01/25/2022 [facility] mmol/L 3:30 AM CDT LABORATORY-[facility] TRAL LABORATORY CHLORIDE 105 98 - 110 01/25/2022 [facility] mmol/L 3:30 AM CDT LABORATORY-[facility] TRAL LABORATORY CO2,TOTAL 22 21 - 31 01/25/2022 [facility] mmol/L 3:30 AM CDT LABORATORY-[facility] TRAL LABORATORY ANION GAP 7 5 - 18 01/25/2022 [facility] 3:30 AM CDT LABORATORY-[facility] TRAL LABORATORY GLUCOSE 152 (H) 65 - 100 01/25/2022 [facility] mg/dL 3:30 AM CDT LABORATORY-[facility] TRAL LABORATORY CALCIUM 8.6 8.5 - 01/25/2022 [facility] 10.5 3:30 AM CDT LABORATORY-[facility] mg/dL TRAL LABORATORY BUN 68 (H) 8 - 25 01/25/2022 [facility] mg/dL 3:30 AM CDT LABORATORY-[facility] TRAL LABORATORY CREATININE 4.54 (H) 0.57 - 01/25/2022 [facility] 1.11 3:30 AM CDT LABORATORY-[facility] mg/dL TRAL LABORATORY BUN/CREAT RATIO 15 10 - 20 01/25/2022 [facility] 3:30 AM CDT LABORATORY-[facility] TRAL LABORATORY ALBUMIN 3.0 (L) 3.5 - 5.2 01/25/2022 [facility] g/dL 3:30 AM CDT LABORATORY-[facility] TRAL LABORATORY PROTEIN,TOTAL 6.3 6.0 - 8.0 01/25/2022 [facility] g/dL 3:30 AM CDT LABORATORY-[facility] TRAL LABORATORY GLOBULIN 3.3 2.0 - 3.7 01/25/2022 [facility] g/dL 3:30 AM CDT LABORATORY-[facility] TRAL LABORATORY A/G RATIO 0.9 (L) 1.0 - 2.0 01/25/2022 [facility] 3:30 AM CDT LABORATORY-[facility] TRAL LABORATORY BILIRUBIN,TOTAL 0.7 0.2 - 1.2 01/25/2022 [facility] mg/dL 3:30 AM CDT LABORATORY-[facility] TRAL LABORATORY ALK PHOSPHATASE 97 50 - 136 01/25/2022 [facility] IU/L 3:30 AM CDT LABORATORY-[facility] TRAL LABORATORY ALT (SGPT) 40 8 - 45 01/25/2022 [facility] IU/L 3:30 AM CDT LABORATORY-[facility] TRAL LABORATORY AST (SGOT) 82 (H) 2 - 40 01/25/2022 [facility] IU/L 3:30 AM CDT LABORATORY-[facility] TRAL LABORATORY eGFR 11 (L) >90 01/25/2022 [facility] mL/min/1. 3:30 AM CDT LABORATORY-[facility] 73m2 TRAL [...] Nathaniel Lima MD CHEMISTRY Performing Organization Address City/[facility] Phon e Number [facility] [phone] [place] [address] LABORATORY-CENTRAL 1999 LABORATORY (ABNORMAL) MRSA/SA PCR (01/25/2022 2:03 AM CDT) [facility] [employer] Method Time Signature MRSA DNA PCR Negative Negative 01/25/2022 [facility] 3:50 AM CDT LABORATORY-CE NTRAL LABORATORY STAPHYLOCOCCUS Positive Negative 01/25/2022 [facility] AUREUS PCR (A) 3:50 AM CDT LABORATORY-CE NTRAL LABORATORY Specimen Anatomical Collection Method Collection Time Receive d Time (Source) Location / / Volume Laterality Other SPECIMEN FROM Non-Blood / 01/25/2022 2:03 AM 01/26/20 22 2:09 INTERNAL NOSE / Unknown CDT AM CDT Unknown Narrative [facility] LABORATORY-CENTRAL LABORAT ORY - 01/25/2022 3:50 AM CDT S. aureus detected; NOT MRSA. Test result does not preclude MRSA nasal colonization. False negative for MRSA could be obtained if MRSA present in the sample is below threshold of detection. Nathaniel Lima MD MICROBIOLOGY Performing Organization Address [facility] Phon e Number [facility] [phone] [place] [address] LABORATORY-CENTRAL 1999 LABORATORY (ABNORMAL) URINALYSIS MICROSCOPIC (01/25/2022 2:03 AM CDT) [facility] Method Time Signature RBC 11-25 (A) 0-2, None 01/25/2022 [facility] Seen /HPF 2:59 AM CDT LABORATORY-[facility] TRAL LABORATORY WBC 6-10 (A) 0-2, 3-5, 01/25/2022 [facility] None Seen 2:59 AM CDT LABORATORY-[facility] /HPF TRAL LABORATORY BACTERIA Rare None 01/25/2022 [facility] Seen, 2:59 AM CDT LABORATORY-[facility] Rare, Few TRAL Bacteria/ LABORATORY HPF EPITHELIAL Few None 01/25/2022 [facility] CELLS Seen, Few 2:59 AM CDT LABORATORY-[facility] Epi/HPF TRAL LABORATORY HYALINE CASTS 3-5 0-2, 3-5 01/25/2022 [facility] /LPF 2:59 AM CDT LABORATORY-[facility] TRAL LABORATORY Specimen Anatomical Collection Method Collection Time Receive d Time (Source) Location / / Volume Laterality Urine URINE SPECIMEN / Non-Blood / 01/25/2022 2:03 AM 01/25 2:09 Unknown Unknown CDT AM CDT Nathaniel Lima MD URINE Performing Organization Address City/State/ZIP Code Phon e Number [facility] [phone] [place] [address] LABORATORY-CENTRAL 2000 LABORATORY SODIUM,RANDOM URINE (01/25/2022 2:03 AM CDT) P athologist Signature SODIUM,RANDOM <20 mmol/L 01/[facility]42 AM [facility] LABORATORY-CENT RAL LABORATORY Specimen Anatomical Collection Method Collection Time Receive d Time (Source) Location / / Volume Laterality Urine URINE SPECIMEN / Non-Blood / 01/25/2022 2:03 AM 01/25 2:09 Unknown Unknown CDT AM CDT Nathaniel Lima MD URINE Performing Organization Address City/State/ZIP Code Phon e Number [facility] [phone] [place] [address] LABORATORY-CENTRAL 2000 LABORATORY CREATININE,RANDOM URINE (01/25/2022 2:03 AM CDT) P athologist Signature CREAT,RANDOM 33.7 mg/dL 01/25/[facility]22 [facility] 6:06 AM CDT LABORATORY-CENT RAL LABORATORY [...] Organization Address City/State/ZIP Code Phon e Number [facility] [phone] [place] [address] LABORATORY-CENTRAL 2000 LABORATORY (ABNORMAL) Urinalysis W Reflex Microscopic if Positive (01/25/2022 2:03 AM CDT) [facility] Method Time Signature COLOR Yellow Yellow Color 01/25/2022 [facility] 2:59 AM CDT LABORATORY-CE NTRAL LABORATORY CLARITY Cloudy (A) Clear 01/25/2022 [facility] Clarity 2:59 AM CDT LABORATORY-CE NTRAL LABORATORY SPECIFIC 1.015 1.010, 01/25/2022 [facility] GRAVITY,URINE 1.015, 2:59 AM CDT LABORATORY-CE 1.020, 1.025 NTRAL LABORATORY PH,URINE 5.5 6.0, 7.0, 01/25/2022 [facility] 8.0, 5.5, 2:59 AM CDT LABORATORY-CE 6.5, 7.5, NTRAL 8.5 LABORATORY UROBILINOGEN, Normal Normal EU/dl 01/25/2022 [facility] 2:59 AM CDT LABORATORY-CE NTRAL LABORATORY PROTEIN, 30 (A) Negative 01/25/2022 [facility] URINE mg/dL 2:59 AM CDT LABORATORY-CE NTRAL LABORATORY GLUCOSE, Negative Negative 01/25/2022 [facility] URINE mg/dL 2:59 AM CDT LABORATORY-CE NTRAL LABORATORY KETONES,URINE Negative Negative 01/25/2022 [facility] mg/dL 2:59 AM CDT LABORATORY-CE NTRAL LABORATORY BILIRUBIN,URI Negative Negative 01/25/2022 [facility] NE 2:59 AM CDT LABORATORY-CE NTRAL LABORATORY OCCULT Large (A) Negative 01/25/2022 [facility] BLOOD,URINE 2:59 AM CDT LABORATORY-CE NTRAL LABORATORY NITRITE Negative Negative 01/25/2022 [facility] 2:59 AM CDT LABORATORY-CE NTRAL LABORATORY LEUKOCYTE Trace (A) Negative 01/25/2022 [facility] 2:59 AM CDT LABORATORY-CE NTRAL LABORATORY Specimen Anatomical Collection Method Collection Time Receive d Time (Source) Location / / Volume Laterality Urine URINE SPECIMEN / Non-Blood / 01/25/2022 2:03 AM 01/25 2:09 Unknown Unknown CDT AM CDT Nathaniel Lima MD URINE Performing Organization Address City/State/ZIP Code Phon e Number [facility] [phone] [place] [address] LABORATORY-CENTRAL 2000 LABORATORY PATH TISSUE EXAM (01/21/2022 3:55 PM CDT) Component Value Ref Test Analysis Performed At [facility] gist Range Method Time Signature Case Report Pathology Report ?Case: [id number] ? 01/26/2022 [facility] Authorizing Provider: ??Tamar Leon MD ??Collected: ? 01/21/2022 1555 ? 9:02 AM HEALTH Ordering Location: ? [facility] CENTRAL LAB ?Received: ?01/22/20222018 ? CDT [...] the wall thickness uniformly measures 0.2 cm. ??Admissions Gate Attendant sections are submitted in 1 cassette (cystic duct margin not readily identified). 9:02 AM HEAL CDT LABORATORY-C Time and date in formalin: 1555 on 01/21/2022 ENTRAL LABORATORY TRB 01/25/2022 Microscopic The final 01/26/2022 [facility] Description diagnosis is 9:02 AM HEALTH based on CDT LABORATORY-C microscopic ENTRAL examination of LABORATORY appropriate sections of all specimens. Additional 01/26/2022 [facility] Information Interpreted at [facility], Central Laboratory - [address], [place] [address] 9:02 AM HEALTH CDT LABORATORY-C ENTRAL LABORATORY Specimen Anatomical Location Collection Method Collection Time Received Time (Source) / Laterality / Volume Other SPECIMEN FROM 01/21/2022 3:55 01/22/2022 8:19 GALL[facility]ADDER / PM CDT PM CDT Unknown Tamar Solorzano MD PATHOLOGY/CYTOLOGY Performing Organization Address City/State/ZIP Code Phon e Number [facility] [phone] [address] LABORATORY-CENTRAL 1999 LABORATORY LAB TRACKING EVENT (01/21/2022 3:43 PM CDT) Specimen Anatomical Collection Method Collection Time Receive d Time (Source) Location / / Volume Laterality Other (Other) Client Collect / 01/21/2022 3:43 PM 12/27 7:45 Unknown CDT PM CDT Tamar Solorzano MD LAB BILL ONLY Performing Organization Address City/State/ZIP Code Phon e Number [facility] [address] [place] [address] LABORATORY-CENTRAL 1999 LABORATORY from Last 3 Months [...] 12 months since positive culture): resides in acute/m[facility] care, receiving hemodialysis, has chronic open wounds/skin [...] 2013-Presen t WC WORKERS COMP WC [facility] [id number] 2013-Prese [address] [address] [place] [address] [employer] [id number] 2014-Prese [address] [place] [address] [employer] [place] [employer] [id number] 2015-Presen [address] [place] [address] [employer] [id number] Effective for [address] [address] [place] [address] [employer] [id number] 2015-Presen [address] [place] [address] [employer] [id number] 2012-Prese [address] [place] [address] Amaury Carbajal Personal/Family Self [phone]) [place] [address] Amaury Carbajal Personal/Family Self [phone] [place] [address] Amaury Carbajal Workers Comp Self 1965 [id number] [address] [place] [address] Amaury Carbajal Workers Comp Self [phone] [address] [place] [address] Amaury Carbajal Motor Vehicle Self 1965 [id number] [address] [address] [facility]/[employer]orge [employer] Employer 03/28/[address] ATTN [employer] (Home) PAYABLE [phone] [address] (Work) [place] [address] Advance Directives Latest Code Status on File [...] Code Status Discussion: Not Discussed Care Teams Interventionist Relationship Specialty Start Date End Date Pcp, No PCP - General 12/06/18 . None 01/04/13 . [facility] 02/05/[address] [address]
[2022-03-01 22:24] LABS: Basophils Absolute Auto 0.02 K/uL (0.00-0.30); Basophils Percent Auto 0.4 % (0.0-3.0); Eosinophils Absolute Auto 0.08 K/uL (0.00-0.50); Eosinophils Percent Auto 1.5 % (0.0-7.0); Hematocrit 35.4 % (33.0-51.0); Hemoglobin* 11.2 gm/dL (12.0-16.0); Lymphocytes Absolute Auto 1.26 K/uL (0.90-2.90); Lymphocytes Percent Auto 23.9 % (20-44); Mean Corpuscular HGB Conc 32 gm/dL (32-36); Mean Corpuscular Hemoglobin 30 pg (26-34); Mean Corpuscular Volume 93 fL (80-100); Monocytes Percent Auto 7.8 % (0.0-11.0); Neutrophils Absolute Auto 3.51 K/uL (1.7-7.0); Neutrophils Percent Auto 66.4 % (42.0-72.0); Platelet Count* 182 K/uL (140-440); White Blood Count* 5.28 K/uL (4.50-11.00)
[2022-03-01 22:29] LABS: Slide Review Reflex No
[2022-03-01 22:39] LABS: Chloride* 105 mmol/L (96-114); Potassium* 4.9 mmol/L (3.6-5.1); Sodium* 139 mmol/L (135-149)
[2022-03-01 22:42] LABS: Blood Urea Nitrogen* 33 mg/dL (7-30); Calcium* 9.2 mg/dL (8.4-10.6); Carbon Dioxide* 27 mmol/L (20-32); Creatinine* 2.1 mg/dL (0.5-1.5); Estimated Glomerular Filt Rate 27 ml/min; Glucose* 157 mg/dL (60-115)
[2022-03-01 22:49] LABS: SARS PCR* POSITIVE SARS-CoV-2 (Negative)
[2022-03-01 23:09] LABS: Thyroid Stimulating Hormone* 0.022 uIU/mL (0.270-4.20)
== END 2022-03-01 14:53 | disposition home or self-care (01) ==
PROVIDERS: PCP Family Medicine; Visit Provider Family Medicine
DX: U07.1 COVID-19 (principal); R05.9 Cough, unspecified; R53.1 Weakness
CPT/HCPCS: 80048; 84443; 85025; 87635

== ENCOUNTER 2022-03-09 12:36 | Outpatient (CLI) | payer OTHER, SELFPAY ==
--- OUTSIDE RECORDS SUMMARY | 2022-03-09 12:40 | XMS_ITS | Encounter Summary ---
:1965 Author Organization [place] Address [address] [facility] [address] Care Team Providers Name Role Phone Jocelyn Davidson RENATA Unavailable Nikita Gamble Primary Care Provider Naveen Casiano MD Unavailable Mikki Blevins MD Unavailable Mikki Blevins MD Unavailable Mindi Llanes PA-C Unavailable [phone] Reason for Referral Medication Prior Authorization - Denied Specialty Diagnoses / Procedures Referred By Contact Refer red To Contact Diagnoses Class 1 obesity due to excess calories without serious comorbidity with body mass index (BMI) of 34.0 to 34.9 in adult Mindi Llanes PA-C [address] [facility] [address] [place] [address] Referral ID Status Reason Start Date Expiration Date Visits Requ ested Visits Authorized [id number] Denied 1 1 RIMENTAL MECHANIC SPACECRAFT Reason for Visit Reason Comments RECHECK Return mary [place] Encounter Details Date Type Department Care Team Description 02/09/2022 Virtual Visit [facility] Mindi Llanes Class 1 obesity due Surgical Weight Loss Leah Macias to excess calories [facility] [place] [address] without serious [address] comorbidity with body [place] [address] mass index (BMI) of [address] 34.0 to 34.9 in adult [place] [address] (Work) [phone] Social History Tobacco Use Types Packs/Day Years Used Date Smoking Tobacco: Never Smokeless Tobacco: Never Tobacco Cessation: Counseling Given: Not Answered Alcohol Use Standard Drinks/Week Comments Yes 0 (1 standard drink = 0.6 oz pure alcoho l) rare Sex Assigned at Date Recorded Female 03/04/2020 12:33 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 documented as of this encounter Last Filed Vital Signs Vital Sign Reading Time Taken Comments Blood Pressure - - Pulse - - Temperature - - Respiratory Rate - - Oxygen Saturation - - Inhaled Oxygen Concentration - - Weight 111.1 kg (245 lb) 02/09/2022 9:39 AM EXPERIMENTAL MECHANIC SPACECRAFT last re corded Height 180.3 cm (5' 11) 02/09/2022 9:39 AM EXPERIMENTAL MECHANIC SPACECRAFT pt repo rted Body Mass Index 34.17 02/09/2022 9:39 AM EXPERIMENTAL MECHANIC SPACECRAFT documented in this encounter Patient Instructions Patient InstructionsDvMindi novak PA-C - 02/09/2022 9:30 AM EXPERIMENTAL MECHANIC SPACECRAFT Nice to talk with you today. Thank you for allowing me the privilege of caring for you. We hope we provided you with the excellent service you deserve. To ensure the quality of our services you may receive a patient satisfaction survey from an Climateminder. The greatest compliment you can give is [...] of protein in it. FOLLOW-UP: Please call [phone] to schedule your next visit in 3 months. Follow up with programs assistant now. Dear Patient, We hope to provide [...] 400lb that have blue-tooth for connecting to INcubes. Scale to purchase: the Zollo ???Body?? Scale: https://www.Teracent/us/en/body/shop?gclid=[email or web address]=aw.ds Discount Code: We have a discount code for our patients to bring the cost down to $50, [place]_Scale_20%off Steps to link the scale to INcubes via an Android Phone (you can always disconnect at any point in the future): The order must be placed first before the patient can access Track My Health within INcubes. Download Google Hashdoc chrissy from the Enlightened Lifestyle Log in or register using your Google account Download the INcubes chrissy from [employer]lightened Lifestyle Select add organization Search for [employer] and select it Log into INcubes Select Track My Health Select the green connect my account button When prompted log into your Google account Select okay to confirm the account Download the [employer] Mate chrissy from Enlightened Lifestyle [place] for Zollo Go to profile Tap Microbonds under the Apps section Select the option to activate Google Hashdoc integration Select the same Google account Select okay to confirm the account Steps to link the scale to INcubes via an iPhone (you can always disconnect at any point in the future): Note WaveTec Vision is not available for download on an iPad The order must be placed first before the patient can access Track My Health within INcubes. Locate the Health chrissy on your iPhone. Set up your WaveTec Vision account as prompted The Sources page will show Apps that communicate with your Health chrissy. Once all steps are completed,you should see LumeJet and Medabilt listed under the Apps section and your iPhone under the devices section. Select Health Mate Under 'ALLOW ???HEALTH MATE?? TO WRITE DATA ensure the toggle is on for Weight. This will allow the scale to add your weight to the WaveTec Vision Select MyChart Under 'ALLOW ???MYCHART?? TO READ DATA ensure the toggle is on for Weight. This allows INcubes to grab the weight from WaveTec Vision so your provider can see your weights. Download the INcubes chrissy from the Chrissy Store Select Cribspot organization Search for [employer] and select it Log into INcubes Select Track My Health Select the green connect my account button Follow prompts to link your device to INcubes. Download the Zollo health Biocontrol chrissy in the Chrissy Store [place] for Zollo Go to profile Tap Health under the Apps section If prompted to allow access with the Health Chrissy, toggle weight on for read and write access. RIMENTAL MECHANIC SPACECRAFT documented in this encounter Progress Notes Mindi Llanes PA-C - 02/09/2022 9:30 AM CST Marnie is a 56 year old who is being evaluated via a billable video visit. If the video visit is dropped, the invitation should be resent by: Text to cell phone: [phone] Will anyone else be joining your video visit? No Video-Visit Details Type of service: Video Visit Video Start Time: 9:44 AM Video End Time: 10:05 AM Originating Location (pt. Location): Home Distant Location (provider location): [facility]ST Platform used for Video Visit: Martin, Had trouble connecting so needed to [facility] to telephone visit. 02/09/2022 Return Medical Weight [...] of protein in it. FOLLOW-UP: Please call [phone] to schedule your next visit in 3 months. Follow up with programs assistant now. 40 minutes spent on the date [...] and no distress Sincerely, Mindi Llanes PA-C RIMENTAL MECHANIC SPACECRAFT documented in this encounter Miscellaneous Notes Assessment [...] to a protein drink like ensure max. RIMENTAL MECHANIC SPACECRAFT documented in this encounter Plan of Treatment Not on filedocumented as of this encounter Procedures Procedure Name Priority Date/Time Associated Diagnosis Comme nts HOME WEIGHT FLOWSHEET Routine 02/09/2022 12:21 PM Class 1 obes ity due to ORDER EXPERIMENTAL MECHANIC SPACECRAFT excess calories without serious comorbidity with body mass index (BMI) of 34.0 to 34.9 in adult documented in this encounter Visit Diagnoses Diagnosis Class 1 obesity due to excess calories w ithout serious comorbidity with body mass index (BMI) of 34.0 to 34.9 in adult documented in this encounter Additional Health Concerns Assessment Noted Time PHQ-9 Depression Total Score: 0 02/26/2020 1:30 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 documented as of this encounter Care Teams Side Door Worker Relationship Specialty Start Date End Date Nikita Gamble PCP - General Family Medicine 05/26/[address] Manager Mutual Fund Dietitian, Registered 05/25/18 [facility] [address] [place] [address] Naveen Casiano MD Assigned PCP 11/16/20 [address] [place] [address] Mikki Blevins MD MD Endocrinology, 05/07/21 [address] [facility] Diabetes, and [place], [place] Metabolism [address] Mikki Blevins MD Assigned Endocrinology 08/02/21 [facility] [place], [place] [id number] Mindi Llanes Assigned Surgical 09/26/21 PRETTY Macias Provider [address] [facility] [address] [place] [address] documented as of this encounter
--- OUTSIDE RECORDS SUMMARY | 2022-03-09 12:40 | XMS_ITS | Encounter Summary ---
:1965 Author Organization [place] Address [facility] [address] Care Team Providers Name Role Phone Jocelyn [...] at Date Recorded Female 03/04/2020 12:33 PM AIRLINE PILOT FLIGHT INSTRUCTOR COVID-19 Exposure Response Date Recorded In [...] Depression Total Score: 0 02/26/2020 1:30 PM AIRLINE PILOT FLIGHT INSTRUCTOR documented as of this encounter Care Teams Cascade Operator Relationship Specialty Start Date End Date Nikita Gamble PCP - General Family Medicine 05/26/20 [facility] [address] [place] [address] Conference Planning Manager Dietitian, Registered 05/25/18 [facility] [place] [address] Naveen Casiano MD Assigned PCP 11/16/20 [address] [place] [address] Harlan Lin Assigned Endocrinology 12/07/20 08/01/21 MD Bassam Provider NO INFO AVAILABLE documented as of this encounter
--- OUTSIDE RECORDS SUMMARY | 2022-03-09 12:40 | XMS_ITS | Encounter Summary ---
:1965 Author Organization [place] Address [address] [facility] [place] [address] Care Team Providers Name Role Phone Jocelyn Davidson RENATA Unavailable Nikita Gamble Primary Care Provider Naveen Casiano MD Unavailable Mikki Blevins MD Unavailable Mikki Blevins MD Unavailable Mindi Llanes PA-C Unavailable Reason for Visit Reason Comments Medication Refill Encounter Details Date Type Department Care Team Description 11/09/2021 Refill [facility] Mikki Blevins MD Medication Refill [facility] [id number] [place] [address] [place], [place] [phone] (W ork) [address] [phone] Social History Tobacco Use Types Packs/Day Years Used Date Smoking Tobacco: Never Smokeless Tobacco: Never Alcohol Use Standard Drinks/Week Comments Yes 0 (1 standard drink = 0.6 oz pure alcoho l) rare Sex Assigned at Date Recorded Female 03/04/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 documented as of this encounter Miscellaneous [...] Depression Total Score: 0 02/26/2020 1:30 PM HORSEBACK RIDING INSTRUCTOR documented as of this encounter Care Teams Kitchen And Bath Designer Relationship Specialty Start Date End Date Nikita Gamble PCP - General Family Medicine 05/26/[address] Printed Circuit Photographer Dietitian, Registered 05/25/18 [facility] [address] [place] [address] [place] [address] Naveen Casiano MD Assigned PCP 11/16/20 [address] [place] [address] Mikki Blevins MD MD Endocrinology, 05/07/21 [address] [facility] Diabetes, and [place], [place] Metabolism [address] Mikki Blevins MD Assigned Endocrinology 08/02/21 [facility] [place], [place] [id number] Mindi Llanes Assigned Surgical 09/26/21 PRETTY Macias Provider [address] [facility] [address] [place], [place] [address] documented as of this encounter
--- OUTSIDE RECORDS SUMMARY | 2022-03-09 12:40 | XMS_ITS | Encounter Summary ---
:1965 Author Organization [place] Address [address] [facility] [address] Care Team Providers Name Role Phone Jocelyn Davidson RENATA Unavailable Nikita Gamble Primary Care Provider Naveen Casiano MD Unavailable Mikki Blevins MD Unavailable Mikki Blevins MD Unavailable Mindi Llanes PA-C Unavailable Reason for Visit Reason Comments Medication Refill Encounter Details Date Type Department Care Team Description 12/20/2021 Refill [facility] Surgical Thuan Llanes Medication Refill Weight Loss Clinic E alvaro Macias PA-C [address] [facility] out [address] [facility] [address] [place] [address] [place] [id number] [phone] Social History Tobacco Use Types Packs/Day Years Used Date Smoking Tobacco: Never Smokeless Tobacco: Never Alcohol Use Standard Drinks/Week Comments Yes 0 (1 standard drink = 0.6 oz pure alcoho l) rare Sex Assigned at Date Recorded Female 03/04/2020 12:33 PM CREEL CLERK documented as of this encounter Miscellaneous [...] Depression Total Score: 0 02/26/2020 1:30 PM CREEL CLERK documented as of this encounter Care Teams Stiff Straw Hat Washer Relationship Specialty Start Date End Date Nikita Gamble PCP - General Family Medicine 05/26/20 [facility] [address] [place] [address] Recreation Therapy Teacher Dietitian, Registered 05/25/18 [facility] [place] [address] Naveen Casiano MD Assigned PCP 11/16/[address] [place] [address] Mikki Blevins MD MD Endocrinology, 05/07/21 909 [facility] Diabetes, and [place], [place] Metabolism [address] Mikki Blevins MD Assigned Endocrinology 08/02/21 [facility] CLINIC [place], [place] [phone] Mindi Llanes Assigned Surgical 09/26/21 PRETTY Macias Provider [address] [place], [place] [address] documented as of this encounter
--- OUTSIDE RECORDS SUMMARY | 2022-03-09 12:40 | XMS_ITS | Encounter Summary ---
:1965 Author Organization [place] Address [facility] [place] [address] Care Team Providers Name Role Phone Jocelyn [...] at Date Recorded Female 03/04/2020 12:33 PM FLASK CLEANER documented as of this encounter Plan of Treatment Not on filedocumented as of this encounter Visit Diagnoses Not on filedocumented in this encounter Additional Health Concerns Assessment Noted Time PHQ-9 Depression Total Score: 0 02/26/2020 1:30 PM FLASK CLEANER documented as of this encounter Care Teams Mail Delivery Supervisor Relationship Specialty Start Date End Date Nikita Gamble PCP - General Family Medicine 05/26/20 [facility] [address] [place] [address] Associate Professor Of Automation Dietitian, Registered 05/25/18 [facility] MAGGIE [facility] [place] [address] Naveen Casiano MD Assigned PCP 11/16/20 [address] [facility] [place], [place] [phone] Harlan Lin Assigned Endocrinology 12/07/20 08/01/21 MD Bassam Provider NO INFO AVAILABLE Mikki Blevins MD MD Endocrinology, 05/07/21 [address] [facility] Diabetes, and [place], [place] Metabolism [address] documented as of this encounter
--- OUTSIDE RECORDS SUMMARY | 2022-03-09 12:40 | XMS_ITS | Encounter Summary ---
:1965 Author Organization [place] Address [address] [facility] [place] [address] Care Team Providers Name Role Phone Jocelyn Davidson RENATA Unavailable Nikita Gamble Primary Care Provider Naveen Casiano MD Unavailable Mikki Blevins MD Unavailable Mikki Blevins MD Unavailable Reason for Referral Diagnostic Imaging [place] (Routine) - Pending Review Specialty Diagnoses / Procedures Referred By Contact Refer red To Contact Diagnoses Gastroparesis Mikki Blevins MD Procedures [place] [address] Referral ID Status Reason Start Date Expiration Date Visits V isits Requested Authorized [id number] Pending 09/17/2021 09/17/2022 1 1 Review Encounter Details Date Type Department Care Team Description 09/17/2021 Orders Only [facility] Mikki Blevins MD Gastroparesis (Primary Specialty Clinic [place] [facility] Dx) 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 documented as of this encounter Progress Notes Mikki Blevins MD - 09/17/2021 11:45 AM CDT Called to review Ozempic dosing Significant life stressors over past few weeks- Fired from work at [employer] No BM x8 days Bloated/looked like I [...] Depression Total Score: 0 02/26/2020 1:30 PM MINE CAR DISPATCHER documented as of this encounter Care Teams Pizza Driver Relationship Specialty Start Date End Date Nikita Gamble PCP - General Family Medicine 05/26/20 [facility] [address] [place] [address] Piano Professor Dietitian, Registered 05/25/18 [facility] MAG[facility]IE [address] [place] [address] [place] [phone] Naveen Caisano MD Assigned PCP 11/16/20 [address] [place], [place] [phone] Mikki Blevins MD MD Endocrinology, 05/07/21 909 [facility] Diabetes, and [place], [place] Metabolism [address] Mikki Blevins MD Assigned Endocrinology 08/02/21 [facility] [place] [address] documented as of this encounter
--- OUTSIDE RECORDS SUMMARY | 2022-03-09 12:40 | XMS_ITS | Encounter Summary ---
:1965 Author Organization [place] Address [address] [facility] [place] [address] Care Team Providers Name Role Phone Jocelyn [...] (H) Mikki Blevins MD [facility] [address] [place] [address] [address] [place] [address] Phone: Fax: Referral ID Status Reason Start Date Expiration Date Visits V isits Requested Authorized [id number] Pending 07/28/2021 07/28/2022 1 1 Review Reason for Visit Reason Comments New Patient Diabetes Encounter Details Date Type Department Care Team Description 07/28/2021 Virtual Visit [facility] Mikki Blevins MD Class 2 severe obesity with serious chucho rbidity and body mass index (BMI) of 36.0 to 36.9 in adult, unspecified obesity type (H) (Primary Dx); Specialty Clinic [facility] Morbid o besity (H); [employer] Type 1 diabetes mellitus with stage 3a c hronic kidney disease (H); [address] [facility] [place] 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 [facility] [address] [address] [place] [phone] [address] (Work) [phone] Social History Tobacco Use Types Packs/Day Years Used Date Smoking Tobacco: Never Smokeless Tobacco: Never Alcohol Use Standard Drinks/Week Comments Yes 0 (1 standard drink = 0.6 oz pure alcoho l) rare Sex Assigned at Date Recorded Female 03/04/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 Location): [place], [place] Distant Location (provider location): Home Platform used for Video Visit: MD Marnie Greer is a 56 year old yo female who presents today for evaluation of diabetes melltius type 1 via a billable video visit. Last seen by Dr Lin 12/03/2020. 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 [...] Depression Total Score: 0 02/26/2020 1:30 PM PHARMACY CASHIER documented as of this encounter Care Teams Salesperson Sewing Machines Relationship Specialty Start Date End Date Nikita Gamble PCP - General Family Medicine 05/26/20 [facility] [address] [place] [address] Tumbler Machine Operator Helper Dietitian, Registered 05/25/18 [facility] [place] [address] Naveen Casiano MD Assigned PCP 11/16/20 [address] [place], [place] [phone] Harlan Lin Assigned Endocrinology 12/07/20 08/01/21 MD Bassam Provider NO INFO AVAILABLE Mikki Blevins MD MD Endocrinology, 05/07/21 [address]09 [facility] Diabetes, and [place], [place] Metabolism [address] documented as of this encounter
--- OUTSIDE RECORDS SUMMARY | 2022-03-09 12:40 | XMS_ITS | Encounter Summary ---
:1965 Author Organization [place] Address [address] [facility] [place] [address] Care Team Providers Name Role Phone Jocelyn Davidson RENATA Unavailable Nikita Gamble Primary Care Provider Naveen Casiano MD Unavailable Harlan Lin MD Unavailable Unavailable Mikki Blevins MD Unavailable Reason for Visit Reason Comments Medication Refill levothyroxine (SYNTHROID/LEV OTHROID) 175 MCG tablet Encounter Details Date Type Department Care Team Description 06/22/2021 Refill [facility] [place]egas MD (levothyroxine [address] [facility] NO INFO (SYNTHROID/LEVOTHROID) [place], [place] AVAILABLE 175 MCG tab let) [id number] Social History Tobacco Use Types Packs/Day Years Used Date Smoking Tobacco: Never Smokeless Tobacco: Never Alcohol Use Standard Drinks/Week Comments Yes 0 (1 standard drink = 0.6 oz pure alcoho l) rare Sex Assigned at Date Recorded Female 03/04/2020 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 documented as of this encounter Miscellaneous Notes [...] Depression Total Score: 0 02/26/2020 1:30 PM BOATBUILDER APPRENTICE WOOD documented as of this encounter Care Teams Idea Worker Relationship Specialty Start Date End Date Nikita Gamble PCP - General Family Medicine 05/26/20 [facility] [address] [place] [address] Research Laboratory Specialist Dietitian, Registered 05/25/18 [facility] [address] [place] [address] [place] [address] Naveen Casiano MD Assigned PCP 11/16/20 [address] [place] [address] Harlan Lin Assigned Endocrinology 12/07/20 08/01/21 MD Bassam Provider NO INFO AVAILABLE Mikki Blevins MD MD Endocrinology, 05/07/21 909 [facility] Diabetes, and [place], [place] Metabolism [address] documented as of this encounter
--- OUTSIDE RECORDS SUMMARY | 2022-03-09 12:40 | XMS_ITS | Encounter Summary ---
:1965 Author Organization [place] Address [address] [facility] [place] [address] Care Team Providers Name Role Phone Jocelyn Davidson RENATA Unavailable Nikita Gamble Primary Care Provider Naveen Casiano MD Unavailable Mikki Blevins MD Unavailable Mikki Blevins MD Unavailable Mindi Llanes PA-C Unavailable Reason for Visit Reason Onset Date Comments Medication Question 09/14/2021 OZEMPIC Encounter Details Date Type Department Care Team Description 09/14/[address] 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 - [place] [address] What on the order needs clarification? Pt [...] Depression Total Score: 0 02/26/2020 1:30 PM URBAN ANTHROPOLOGIST documented as of this encounter Care Teams Customer Sales Specialist Relationship Specialty Start Date End Date Nikita Gamble PCP - General Family Medicine 05/26/20 [facility] [address] [place] [address] Doper Operator Dietitian, Registered 05/25/[address] [place] [address] Naveen Casiano MD Assigned PCP 11/16/20 [address] [place] [address] Mikki Blevins MD MD Endocrinology, 05/07/21 909 [facility] Diabetes, and [place], [place] Metabolism [address] Mikki Blevins MD Assigned Endocrinology 08/02/21 [facility] [place] [address] Mindi Llanes Assigned Surgical 09/26/21 PRETTY Macias Provider [address] [place] [address] documented as of this encounter
--- OUTSIDE RECORDS SUMMARY | 2022-03-09 12:40 | XMS_ITS | Encounter Summary ---
:1965 Author Organization [place] Address [address] [facility] [place] [address] Care Team Providers Name Role Phone Jocelyn Davidson RENATA Unavailable Nikita Gamble Primary Care Provider Naveen Casiano MD Unavailable Mikki Blevins MD Unavailable Mikki Blevins MD Unavailable iMndi Llanes PA-C Unavailable [phone] Reason for Visit Reason Onset Date Comments No Show No Show 10/20/2021 Encounter Details Date Type Department Care Team Description 10/20/2021 Virtual Visit [facility] Mikki Blevins MD No-show for Specialty Clinic [facility] [facility] appointm ent (Primary [place] [facility] Dx) [address] [facility] [address] [address] [place] [address] [phone] Social History Tobacco Use Types Packs/Day Years Used Date Smoking Tobacco: Never Smokeless Tobacco: Never Alcohol Use Standard Drinks/Week Comments Yes 0 (1 standard drink = 0.6 oz pure alcoho l) rare Sex Assigned at Date Recorded Female 03/04/2020 12:33 PM 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 DIRECTOR documented as of this encounter Progress [...] Depression Total Score: 0 02/26/2020 1:30 PM QUALITY DIRECTOR documented as of this encounter Care Teams Steam Clean Machine Operator Relationship Specialty Start Date End Date Nikita Gamble PCP - General Family Medicine 05/26/20 [facility] [address] [place] [address] Electrical Journeyman Dietitian, Registered 05/25/[address] [place] [address] Naveen Casiano MD Assigned PCP 11/16/20 [address] [place] [address] Mikki Blevins MD MD Endocrinology, 05/07/21 909 [facility] Diabetes, and [place], [place] Metabolism [address] Mikki Blevins MD Assigned Endocrinology 08/02/21 [facility] [place] [address] Mindi Llanes Assigned Surgical 09/26/21 PRETTY Macias Provider [address] [facility] [address] [place], [place] [address] documented as of this encounter
--- OUTSIDE RECORDS SUMMARY | 2022-03-09 12:40 | XMS_ITS | Encounter Summary ---
:1965 Author Organization [place] Address [facility] [place] [address] Care Team Providers Name Role Phone Jocelyn Davidson RENATA Unavailable Nikita Gamble Primary Care Provider Naveen Casiano MD Unavailable Harlan Lin MD Unavailable Unavailable Mikki Blevins MD Unavailable Reason for Visit Reason Comments Medication Refill Encounter Details Date Type Department Care Team Description 06/27/2021 Refill [facility] Naveed Lin [place] [address] [facility] [place] [address] Social History Tobacco Use Types Packs/Day Years Used Date Smoking Tobacco: Never Smokeless Tobacco: Never Alcohol Use Standard Drinks/Week Comments Yes 0 (1 standard drink = 0.6 oz pure alcoho l) rare Sex Assigned at Date Recorded Female 03/04/2020 12:33 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 OF 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 documented as of this encounter Miscellaneous Notes [...] Depression Total Score: 0 02/26/2020 1:30 PM HEAD OF PRODUCT documented as of this encounter Care Teams Earth Moving Machine Operator Relationship Specialty Start Date End Date Nikita Gamble PCP - General Family Medicine 05/26/20 [facility] [address] [place] [address] Manager Clinical Applications Dietitian, Registered 05/25/[address] [place] [address] Naveen Casiano MD Assigned PCP 11/16/20 [address] [place], [place] [id number] Harlan Lin Assigned Endocrinology 12/07/20 08/01/21 MD [facility] Provider NO INFO AVAILABLE Mikki Blevins MD MD Endocrinology, 05/07/21 909 [facility] Diabetes, and [place], [place] Metabolism [address] documented as of this encounter
--- OUTSIDE RECORDS SUMMARY | 2022-03-09 12:40 | XMS_ITS | Encounter Summary ---
:1965 Author Organization [place] Address [address] [facility] [place] [address] Care Team Providers Name Role Phone Jocelyn Davidson RENATA Unavailable Nikita Gamble Primary Care Provider Naveen Casiano MD Unavailable Mikki Blevins MD Unavailable Mikki Blevins MD Unavailable Reason for Visit Reason Onset Date Comments Class 2 severe obesity with serious comorbidity and body ma No Show 09/08/2021 Encounter Details Date Type Department Care Team Description 09/08/[address] [facility] Mikki Blevins MD No-show for Specialty Clinic [facility] appointm ent (Primary [place] [facility] Dx) [address] [facility] [address] [address] [place] [address] [phone] Social History Tobacco Use Types Packs/Day Years Used Date Smoking Tobacco: Never Smokeless Tobacco: Never Alcohol Use Standard Drinks/Week Comments Yes 0 (1 standard drink = 0.6 oz pure alcoho l) rare Sex Assigned at Date Recorded Female 03/04/2020 12:33 PM TOOL MARKER documented as of this encounter Progress Notes [...] Depression Total Score: 0 02/26/2020 1:30 PM TOOL MARKER documented as of this encounter Care Teams Education Instructor Relationship Specialty Start Date End Date Nikita Gamble PCP - General Family Medicine 05/26/20 [facility] [address] [place] [address] Maintenance Supervisor Mechanical Dietitian, Registered 05/25/[address] [place] [address] Naveen Casiano MD Assigned PCP 11/16/20 [address] [place], [place] [id number] Mikki Blevins MD MD Endocrinology, 05/07/21 909 [facility] Diabetes, [place], [place] Metabolism [address] Mikki Blevins MD Assigned Endocrinology 08/02/21 [facility] [place] [address] documented as of this encounter
--- OUTSIDE RECORDS SUMMARY | 2022-03-09 12:40 | XMS_ITS | Encounter Summary ---
:1965 Author Organization [place] Address [address] [facility] [place] [address] Care Team Providers Name Role Phone StuartJocelyn [...] stage 3a (H) Mindi Llanes PA-C [address] [facility] [address] [place] [address] Referral ID Status Reason Start Date Expiration Date Visits V isits Requested Authorized [id number] Pending 09/22/2021 09/22/2022 1 1 Review Reason [...] (H) Mikki Blevins MD Weight Loss Clinic [facility] [address] [place] [address] [address] [place] [address] Phone: Fax: Referral ID Status Reason Start Date Expiration Date Visits V isits Requested Authorized [id number] Pending 07/28/2021 07/28/2022 1 1 Review Encounter Details Date Type Department Care Team Description 09/22/2021 Virtual Visit [facility] Mindi Llanes Class 2 severe obesity due to excess calories with serious comorbidity and body mass index (BMI) of 36.0 to 36.9 in adult (H) (Primary Dx); Surgical Weight Loss Leah Macias-Ashlee Type 1 diabetes mellitus with complicati ons (H); [facility] [place] [address] Chronic kidney disease, stag e 3a (H); [address] [facility] [address] Benign essential hypertension; [place] [address] Acquired hypothyroidism; [address] Uncontrolled type 1 diabetes with renal manifestation (H); [place] [id number] (Work) Migraine with status migrainosus, not in tractable, unspecified migraine type [phone] Social History Tobacco Use Types Packs/Day Years Used Date Smoking Tobacco: Never Smokeless Tobacco: Never Alcohol Use Standard Drinks/Week Comments Yes 0 (1 standard drink = 0.6 oz pure alcoho l) rare Sex Assigned at Date Recorded Female 03/04/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 [email or web address] Goals: Add in short bursts of activity throughout you day. FOLLOW-UP: Please call [phone] to schedule your next visit in 8-10 [...] be resent by: Text to cell phone: [phone] Will anyone else be joining your video visit? No Video-Visit Details Type of service: Video Visit Video Start Time: 9:30 AM Video End Time:10:30 AM Originating Location (pt. Location): Home Distant Location (provider location): [facility] Platform used for Video Visit: [facility] Medical Weight Management Consult PATIENT: Marnie [...] NUTRITION REFERRAL PROGRAM OVERVIEW Reviewed options at [place] [facility] including provider visits, cross cut sawyer, 24 week healthylifestyle program, health coaching, food supplements, Get Moving program, and psychological support.All questions about weight loss program were answered. SURGICAL WEIGHT LOSS Option presented given pt BMI and current comorbid conditions. Website for bariatric online information session provided. Pt will review at home and we will discuss at our follow up visit. [email or web address] MEDICATIONS: We discussed healthy habits to assist [...] throughout you day. Follow up: Please call [phone] to schedule your next visit in 8-10 [...] food do you typically eat? Cup of belarusian yogurt with blueberries and suger free jellos,angerine [...] foods like these: fried meats, brats, burgers, macedonian fries, pizza, cheese, chips, or ice cream. Once a Week Eat fast food (like [employer], [employer], [employer]). Never Eat at a buffet or sit-down [...] hours Using T:Connect: Yes Dexcom Sharing Code: [id number] ??? insulin syringe-needle U-100 (30G X 1/2 [...] Depression Total Score: 0 02/26/2020 1:30 PM BILL CHECKER documented as of this encounter Care Teams Testing Projects Administrator Relationship Specialty Start Date End Date Tony Ackerman PCP - General Family Medicine 05/26/20 [facility] [address] [place] [address] Coffee Grower Dietitian, Registered 05/25/18 [facility] [place] [address] Naveen Casiano MD Assigned PCP 11/16/20 [address] [place], [place] [id number] Mikki Blevins MD MD Endocrinology, 05/07/21 909 [facility] Diabetes, and [place], [place] Metabolism [address] Mikki Blevins MD Assigned Endocrinology 08/02/21 [facility] [place] [address] documented as of this encounter
--- OUTSIDE RECORDS SUMMARY | 2022-03-09 12:40 | XMS_ITS | Encounter Summary ---
:1965 Author Organization [place] Address [address] [facility] [address] Care Team Providers Name Role Phone Jocelyn Davidson Bran YANEZ Unavailable Nikita Gamble Primary Care Provider Naveen Casiano MD Unavailable Mikki Blevins MD Unavailable Mikki Blevins MD Unavailable Reason for Visit Reason Onset Date Comments Left Message To Call 09/21/2021 Encounter Details Date Type Department Care Team Description 09/21/2021 Telephone [facility] Mindi Llanes Left Me ssage To Call Surgical Weight Loss Leah Macias [place] [address] [place] [address] [phone] Social History Tobacco Use Types Packs/Day Years Used Date Smoking Tobacco: Never Smokeless Tobacco: Never Alcohol Use Standard Drinks/Week Comments Yes 0 (1 standard drink = 0.6 oz pure alcoho l) rare Sex Assigned at Date Recorded Female 03/04/2020 12:33 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 documented as of this encounter Miscellaneous Notes [...] Depression Total Score: 0 02/26/2020 1:30 PM FUR DRY CLEANER documented as of this encounter Care Teams Hydraulic Hammer Operator Relationship Specialty Start Date End Date Nikita Gamble PCP - General Family Medicine 05/26/[address] Premix Concrete Batcher Dietitian, Registered 05/25/[address] [place] [address] Naveen Casiano MD Assigned PCP 11/16/20 [address] [place] [address] Mikki Blevins MD MD Endocrinology, 05/07/21 909 [facility] Diabetes, and [place], [place] Metabolism [address] Mikki Blevins MD Assigned Endocrinology 08/02/21 [facility] CLINIC [place], [place] [address] documented as of this encounter
--- OUTSIDE RECORDS SUMMARY | 2022-03-09 12:40 | XMS_ITS | Encounter Summary ---
:1965 Author Organization [place] Address [address] [facility] [place] [address] Care Team Providers Name Role Phone Jocelyn Davidson RENATA Unavailable Nikita Gamble Primary Care Provider Naveen Casiano MD Unavailable Mikki Blevins MD Unavailable Mikki Blevins MD Unavailable Mindi Llanes PA-C Unavailable Reason for Visit Reason Onset Date Comments Prior Auth - Medication 02/09/2022 phentermine (JONATHAN PEX-P) 37.5 MG tablet - EPA DENIED Encounter Details Date Type Department Care Team Description 02/09/2022 Telephone [facility] Mindi Llanes Prior [facility] - Medication Surgical Weight Loss Leah Macias (phentermine (ADIPEX-P) Clinic [place] [address] [facility] 37.5 MG tablet - EPA [address] [facility] [address] DENIED) [place] [address] [place] [address] [place] [address] [phone] Social History Tobacco Use Types Packs/Day Years Used Date Smoking Tobacco: Never Smokeless Tobacco: Never Alcohol Use Standard Drinks/Week Comments Yes 0 (1 standard drink = 0.6 oz pure alcoho l) rare Sex Assigned at Date Recorded Female 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 PRIOR AUTHORIZATION DENIED Medication: phentermine (ADIPEX-P) 37.5 MG tablet - EPA DENIED Denial Date: 02/09/2022 Denial Rational: Appeal Information: WASHER documented in this encounter Plan of Treatment Not on filedocumented as of this encounter Visit Diagnoses Not on filedocumented in this encounter Additional Health Concerns Assessment Noted Time PHQ-9 Depression Total Score: 0 02/26/2020 1:30 PM SPOT WASHER documented as of this encounter Care Teams Health Information Managers Relationship Specialty Start Date End Date Nikita Gamble PCP - General Family Medicine 05/26/[address] Manager Location Dietitian, Registered 05/25/18 [facility] [address] [place] [address] [place] [address] Naveen Casiano MD Assigned PCP 11/16/20 [address] [place], [place] [phone] Mikki Blevins MD MD Endocrinology, 05/07/21 909 [facility] Diabetes, and [place], [place] Metabolism [address] Mikki Blevins MD Assigned Endocrinology 08/02/21 [facility] Provider [place], [place] [id number] Mindi Llanes Assigned Surgical 09/26/21 PRETTY Macias Provider [facility] [place] [address] documented as of this encounter
--- OUTSIDE RECORDS SUMMARY | 2022-03-09 12:40 | XMS_ITS | Encounter Summary ---
:1965 Author Organization [place] Address [address] [facility] [place] [address] Care Team Providers Name Role Phone Jocelyn Davidson RENATA Unavailable Nikita Gamble Primary Care Provider Naveen Casiano MD Unavailable Mikki Blevins MD Unavailable Mikki Blevins MD Unavailable Mindi Llanes PA-C Unavailable [phone] Encounter Details Date Type Department Care Team Description 09/29/2021 Virtual Visit [facility] Surgical 3, Sh Wl Diet , RD No Show Weight Loss Clinic [address] [place] [address] Social History Tobacco Use Types Packs/Day Years Used Date Smoking Tobacco: Never Smokeless Tobacco: Never Alcohol Use Standard Drinks/Week Comments Yes 0 (1 standard drink = 0.6 oz pure alcoho l) rare Sex Assigned at Date Recorded Female 03/04/2020 12:33 PM 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 documented as of this encounter Progress Notes Haven Keen - 09/29/2021 8:30 AM CDT No charge/no show documented in this encounter Plan of Treatment Not on filedocumented as of this encounter Visit Diagnoses Not on filedocumented in this encounter Additional Health Concerns Assessment Noted Time PHQ-9 Depression Total Score: 0 02/26/2020 1:30 PM 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 documented as of this encounter Care Teams Senior Counsel Commercial Relationship Specialty Start Date End Date Nikita Gamble PCP - General Family Medicine 05/26/20 [facility] [address] [place] [address] Knife Finisher Dietitian, Registered 05/25/18 [facility] [address] [place] [address] [place] [address] Navene Casiano MD Assigned PCP 11/16/20 [address] [place] [address] Mikki Blevins MD MD Endocrinology, 05/07/21 909 [facility] Diabetes, and [place], [place] Metabolism [address] Mikki Blevins MD Assigned Endocrinology 08/02/21 [facility] [place], [place] [address] Mindi Llanes Assigned Surgical 09/26/21 PRETTY Macias Provider [address] [facility] [address] [place] [address] documented as of this encounter
--- OUTSIDE RECORDS SUMMARY | 2022-03-09 12:40 | XMS_ITS | Clinical Summary ---
:1965 Author Organization [place] Address [address] [facility] [place] [address] Care Team Providers Name Role Phone Jocelyn Davidson RENATA Unavailable Nikita Gamble Primary Care Provider Naveen Casiano MD Unavailable Mikki Blevins MD Unavailable Mikki Blevins MD Unavailable Mindi Llanes PA-C Unavailable [phone] Allergies No known active allergies Medications Medication [...] hours Using T:Connect: Yes Dexcom Sharing Code: [id number] blood glucose USE TO TEST BLOOD 200 [...] at Date Recorded Female 03/04/2020 12:33 PM CYLINDER LOADER Last Filed Vital Signs Vital Sign Reading Time Taken Comments Blood Pressure 128/68 11/06/2020 3:31 PM CDT Pulse 75 11/06/2020 3:31 PM CDT Temperature 37 ??C (98.6 ??F) 11/06/2020 3:31 PM CDT Respiratory Rate 19 02/26/2020 1:31 PM CYLINDER LOADER Oxygen Saturation 96% 11/06/2020 3:31 PM CDT Inhaled Oxygen Concentration - - Weight 111.1 kg (245 lb) 02/09/2022 9:39 AM CYLINDER LOADER last re corded Height 180.3 cm (5' 11) 02/09/2022 9:39 AM CYLINDER LOADER pt repo rted Body Mass Index 34.17 02/09/2022 9:39 AM CYLINDER LOADER Plan of Treatment Health Maintenance Due Date [...] Class 1 obes ity due to ORDER CYLINDER LOADER excess calories without serious comorbidity with body mass index (BMI) of 34.0 to 34.9 in adult from Last 3 Months Insurance Payer Benefit Plan / Subscriber ID Effective Phone Address T ype Group Dates [facility] [id number] 2016-Pres [phone] [address] O ADVANTAGE ent [address] [place] [address] Care Teams Grid Molder Relationship Specialty Start Date End Date Nikita Gamble PCP - General Family Medicine 05/26/20 [facility] [address] [place] [address] Neuro Ophthalmologist Dietitian, Registered 05/25/18 [facility] [place] [id number] Naveen Casiano MD Assigned PCP 11/16/20 [address] [address] [place], [place] [phone] Mikki Blevins MD MD Endocrinology, 05/07/21 909 [facility] Diabetes, and [place], [place] Metabolism [address] Mikki Blevins MD Assigned Endocrinology 08/02/21 [facility] [place] [address] Mindi Llanes Assigned Surgical 09/26/21 PRETTY Macias Provider [address] [place] [address]
--- OUTSIDE RECORDS SUMMARY | 2022-03-09 12:40 | XMS_ITS | Encounter Summary ---
:1965 Author Organization [place] Address [address] [facility] [place] [address] Care Team Providers Name Role Phone Jocelyn Davidson RENATA Unavailable Nikita Gamble Primary Care Provider Naveen Casiano MD Unavailable Mikki Blevins MD Unavailable Mikki Blevins MD Unavailable Mindi Llanes PA-C Unavailable [phone] Reason for Visit Reason Onset Date Comments Refill Request 12/24/2021 phentermine Encounter Details Date Type Department Care Team Description 12/24/2021 Telephone [facility] Mindi Llanes Refill Request Surgical Weight Loss Leah Macias (phentermine) [address] [place] [address] [place] [address] [phone] Social History Tobacco Use Types Packs/Day Years Used Date Smoking Tobacco: Never Smokeless Tobacco: Never Alcohol Use Standard Drinks/Week Comments Yes 0 (1 standard drink = 0.6 oz pure alcoho l) rare Sex Assigned at Date Recorded Female 03/04/2020 12:33 PM BUSINESS PARTNER documented as of this encounter Miscellaneous Notes Telephone Encounter - Alix Marquez, RN - 12/25/2021 8:20 AM CDT Phentermine refilled 12/24/21. Alix Kim, MS, RD, RN Telephone Encounter - Trinidad Lamb - 12/24/2021 4:22 PM CDT Reason for Call: Medication or medication refill: Do you use a [facility]? Name of the pharmacy and phone number for the current request: [id number] [place] [id number] [place] [address] ( ) Name of the medication requested: [...] Total Score: 0 02/26/2020 1:30 PM BUSINESS PARTNER documented as of this encounter Care Teams Db2 Dba Relationship Specialty Start Date End Date Nikita Gamble PCP - General Family Medicine 05/26/20 [facility] [address] [place] [address] Intake Coordinator Dietitian, Registered 05/25/18 [facility] [place] [address] Naveen Casiano MD Assigned PCP 11/16/20 [address] [place], [place] [phone] Mikki Blevins MD MD Endocrinology, 05/07/[address] Diabetes, and [place], [place] Metabolism [address] Mikki Blevins MD Assigned Endocrinology 08/02/21 [facility] CLINIC [place], [place] [phone] Mindi Llanes Assigned Surgical 09/26/21 PRETTY Macias Provider [address] [place], [place] [address] documented as of this encounter
--- OUTSIDE RECORDS SUMMARY | 2022-03-09 12:40 | XMS_ITS | Encounter Summary ---
:1965 Author Organization [place] Address [address] [facility] [place] [address] Care Team Providers Name Role Phone Jocelyn Davidson RENATA Unavailable Nikita Gamble Primary Care Provider Naveen Casiano MD Unavailable Mikki Blevins MD Unavailable Mikki Blevins MD Unavailable Mindi Llanes PA-C Unavailable [phone] Reason for Visit Reason Onset Date Comments No Show 12/29/2021 Encounter Details Date Type Department Care Team Description 12/29/2021 Virtual Visit [facility] Mikki Blevins MD No-show for Specialty Clinic [facility] [facility] appointm ent (Primary [place] [facility] Dx) [address] [facility] [address] [address] [place] [address] [phone] Social History Tobacco Use Types Packs/Day Years Used Date Smoking Tobacco: Never Smokeless Tobacco: Never Alcohol Use Standard Drinks/Week Comments Yes 0 (1 standard drink = 0.6 oz pure alcoho l) rare Sex Assigned at Date Recorded Female 03/04/2020 12:33 PM SOLICITOR PATENT documented as of this encounter Progress Notes [...] Depression Total Score: 0 02/26/2020 1:30 PM SOLICITOR PATENT documented as of this encounter Care Teams Printer Small Print Shop Relationship Specialty Start Date End Date Nikita Gamble PCP - General Family Medicine 05/26/20 [facility] [address] [place] [address] Blood Collector Dietitian, Registered 05/25/[address] [place] [address] Naveen Casiano MD Assigned PCP 11/16/20 [address] [place] [address] Mikki Blevins MD MD Endocrinology, 05/07/[address] [place] [address] Diabetes, and [place], [place] Metabolism [phone] Mikki Blevins MD Assigned Endocrinology 08/02/21 [facility] [place] [place] [address] Mindi Llanes Assigned Surgical 09/26/21 PRETTY Macias Provider [address] [facility] [address] [place] [address] documented as of this encounter
--- OUTSIDE RECORDS SUMMARY | 2022-03-09 12:40 | XMS_ITS | Encounter Summary ---
:1965 Author Organization [place] Address [address] [facility] [place] [address] Care Team Providers Name Role Phone Jocelyn Davidson Bran YANEZ Unavailable Nikita Gamble Primary Care Provider Naveen Casiano MD Unavailable Harlan Lin MD Unavailable Unavailable Reason for Visit Reason Comments Medication Refill Encounter Details Date Type Department Care Team Description 03/14/2021 Refill [facility] Annette Alvarez, Medication Refill [address] [phone] [place] [address] (Wo rk) Social History Tobacco Use Types Packs/Day Years Used Date Smoking Tobacco: Never Smokeless Tobacco: Never Alcohol Use Standard Drinks/Week Comments Yes 0 (1 standard drink = 0.6 oz pure alcoho l) rare Sex Assigned at Date Recorded Female 03/04/2020 12:33 PM PICKER documented as of this encounter Miscellaneous Notes Telephone Encounter - Kandi Rooney RN - 03/17/2021 8:49 AM CST Routing refill request to provider for review/approval because: Labs out of range: TSH Patient needs to be seen because it has been more than 1 year since last office visit as patient seen [facility]te [facility] documented in this encounter Plan of Treatment Not on filedocumented as of this encounter Visit Diagnoses Diagnosis Type 1 diabetes mellitus with stage 3a c hronic kidney disease (H) - Primary 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 documented in this encounter Additional Health Concerns Assessment Noted Time PHQ-9 Depression Total Score: 0 02/26/2020 1:30 PM PICKER documented as of this encounter Care Teams Manager Produce Relationship Specialty Start Date End Date Nikita Gamble PCP - General Family Medicine 05/26/20 [facility] [address] [place] [address] Manager Shipping Dietitian, Registered 05/25/[address] [place] [address] Naveen Casiano MD Assigned PCP 11/16/20 [address] [place] [address] Harlan Lin Assigned Endocrinology 12/07/20 08/01/21 MD Bassam Provider NO INFO AVAILABLE documented as of this encounter
--- OUTSIDE RECORDS SUMMARY | 2022-03-09 12:41 | XMS_ITS | Encounter Summary ---
:1965 Author Organization [place] Address [facility] [place] [address] Care Team Providers Name Role Phone Jocelyn Davidson RD Unavailable Tamar Murphy APRN CYLINDER BLOCK HOLE RELINER Unavailable Nikita Gamble Primary Care Provider Encounter Details Date Type Department Care Team Description 11/06/2020 Travel Social History Tobacco Use Types Packs/Day Years Used Date Smoking Tobacco: Never Smokeless Tobacco: Never Alcohol Use Standard Drinks/Week Comments Yes 0 (1 standard drink = 0.6 oz pure alcoho l) rare Sex Assigned at Date Recorded Female 03/04/2020 12:33 PM GENERAL ASSISTANT COVID-19 Exposure Response Date Recorded In [...] Depression Total Score: 0 02/26/2020 1:30 PM GENERAL ASSISTANT documented as of this encounter Care Teams Margarine Churn Operator Relationship Specialty Start Date End Date Nikita Gamble PCP - General Family Medicine 05/26/20 [facility] [address] [place] [address] Superintendent Distribution Dietitian, Registered 05/25/18 [facility] [place] [address] Tamar Murphy APRN CYLINDER BLOCK HOLE RELINER Assigned PCP 02/08/20 11/15/20 [address] [place], [place] [id number] documented as of this encounter
--- OUTSIDE RECORDS SUMMARY | 2022-03-09 12:41 | XMS_ITS | Encounter Summary ---
:1965 Author Organization [place] Address [address] [facility] [place] [address] Care Team Providers Name Role Phone Jocelyn Davidson Bran YANEZ Unavailable Nikita Gamble Primary Care Provider Naveen Casiano MD Unavailable Harlan Lin MD Unavailable Unavailable Encounter Details Date Type Department Care Team Description 01/05/2021 Lab [facility] Typ e 1 diabetes mellitus with [facility] stage 3a chronic kidney [address] [facility] disease (H) [place], [place] [phone] Social History Tobacco Use Types Packs/Day Years Used Date Smoking Tobacco: Never Smokeless Tobacco: Never Alcohol Use Standard Drinks/Week Comments Yes 0 (1 standard drink = 0.6 oz pure alcoho l) rare Sex Assigned at Date Recorded Female 03/04/2020 12:33 PM TERMINAL PRESS OPERATOR COVID-19 Exposure Response Date Recorded [...] City/State/ZIP Code Phon [place] [address] [phone] [facility] [address] [facility] Lab (no room number, 1st floor of clinic) [facility] [place], [place] [phone] [facility] [address] Lab [address] [facility] Lab (no room number, 1st floor [...] LAB - URINE ORDERABLES Performing Organization Address City/[facility] Phon e Number OX [facility]ATORY [place], [place] [phone] [facility] [address] [place] [address] Lab (no room number, 1st floor of clinic) [facility] [place], [place] [phone] [facility] [address] [address] Lab (no room number, 1st floor [...] LAB - BLOOD ORDERABLES Performing Organization Address City/[facility] Phon e Number [facility] [place], [place] [phone] [facility] [address] [place] [address] Lab (no room number, 1st floor of clinic) [facility] [place], [place] [phone] [facility] [address] [address] Lab (no room number, 1st floor of clinic) (ABNORMAL) Lipid panel reflex to direct LDL Fasting (01/05/2021 3:03 PM CDT) [facility] gist Method Time Signature Cholesterol 203 (H) [...] Code Phon e Number OX LABORATORY [facility] - [place], [place] [phone] [facility] [address] Lab (no room number, 1st floor of clinic) [facility] [place], [place] [phone] [facility] [place] [address], [facility] [address] Lab (no room number, 1st floor of clinic) (ABNORMAL) BASIC METABOLIC PANEL (01/05/2021 3:03 PM CDT) [facility] gist Method Time Signature Sodium 134 133 [...] LAB - BLOOD ORDERABLES Performing Organization Address City/[facility] Phon e Number OX LAB[facility]ATORY [facility] [place], [place] [phone] [facility] [address] Lab (no room number, 1st floor of clinic) [facility] [place], [place] [phone] [facility] [address] [address] Lab (no room number, 1st floor [...] LAB - BLOOD ORDERABLES Performing Organization Address [facility] [place]/[facility] Phon e Number [facility]ATORY [facility] [place], [place] [phone] [facility] [address] [place] [address] Lab (no room number, 1st floor of clinic) [place]AT[place], [place] [phone] [facility] [address] [address] Lab (no room number, 1st floor of clinic) documented in this encounter Visit Diagnoses Diagnosis Type 1 diabetes mellitus with stage 3a c hronic kidney disease (H) documented in this encounter Additional Health Concerns Assessment Noted Time PHQ-9 Depression Total Score: 0 02/26/2020 1:30 PM TERMINAL PRESS OPERATOR documented as of this encounter Care Teams Computer Security Coordinator Relationship Specialty Start Date End Date Nikita Gamble PCP - General Family Medicine 05/26/[address] [place] [address] Bookstore Manager Dietitian, Registered 05/25/18 [facility] [place] [address] Naveen Casiano MD Assigned PCP 11/16/20 [address] [place], [place] [phone] Harlan Lin Assigned Endocrinology 12/07/20 08/01/21 MD Bassam Provider NO INFO AVAILABLE documented as of this encounter
--- OUTSIDE RECORDS SUMMARY | 2022-03-09 12:41 | XMS_ITS | Encounter Summary ---
:1965 Author Organization [place] Address [address] [place] [address] Care Team Providers Name Role Phone Annette Alvarez KIM LOOP PULLER Unavailable Goran Lloyd Primary Care Provider Jocelyn Davidson RD Unavailable Tamar Murphy APRN LOOP PULLER Unavailable Reason for Visit Diagnostic Imaging XR (Routine) - Closed Specialty Diagnoses / Procedures Referred By Contact Refer red To Contact Diagnoses Cough Tamar Murphy APRN CNP Procedures XR Chest 2 Views [address] [place], [place] [address] Referral ID Status Reason Start Date Expiration Date Visits Requ ested Visits Authorized [id number] Closed 02/26/2020 02/25/2021 1 1 Encounter Details Date Type Department Care Team Description 02/26/2020 Ancillary Procedure [facility] Tamar Murphy Holder APRN LOOP PULLER [address] [facility] [id number] [place] [address] [phone] Social History Tobacco Use Types Packs/Day Years Used Date Smoking Tobacco: Never Smokeless Tobacco: Never Alcohol Use Standard Drinks/Week Comments Yes 0 (1 standard drink = 0.6 oz pure alcoho l) rare Sex Assigned at Date Recorded Female 03/04/2020 12:33 PM SOUVENIR ASSEMBLER COVID-19 Exposure Response Date Recorded In the last month, have you been in contact with No / Unsure 02/03/2020 12:21 PM SOUVENIR ASSEMBLER someone who was confirmed or suspected to have Coronavirus / COVID-19? documented as of this encounter Plan of Treatment Not on filedocumented as of this encounter Procedures Procedure Name Priority Date/Time Associated Diagnosis Comme nts XR CHEST 2 VIEWS Routine 02/26/2020 2:12 PM Cough Resul ts for this SOUVENIR ASSEMBLER procedure are i n the results section. documented in this encounter Results XR Chest 2 Views (02/26/2020 2:12 PM SOUVENIR ASSEMBLER) Anatomical Region Laterality Modality Chest Computed Radiography Specimen (Source) Anatomical Location Collection Method / Collectio n Time Received Time / Laterality Volume Impressions 02/26/2020 2:25 PM SOUVENIR ASSEMBLER IMPRESSION: PA and lateral views of the chest. Lungs are clear. Heart is normal in size. No effusions are evid ent. No pneumothorax. Degenerative spine changes are noted. Ol d healed lateral right upper rib fractures and mid left rib fractures are again noted. TONIO CRANE MD Narrative 02/26/2020 2:25 PM SOUVENIR ASSEMBLER CHEST TWO VIEWS ??02/26/2020 2:12 PM HISTORY: [...] noted. TONIO CRANE MD Tamar Murphy APRN LOOP PULLER IMG DIAGNOSTIC IMAGING ORDER DEJUAN documented in this encounter Visit Diagnoses Not on filedocumented in this encounter Additional Health Concerns Infection Onset Date Last Indicated Resolved Time Rule Out COVID-19 02/26/2020 02/26/2020 02/27/2020 4:3 2 PM SOUVENIR ASSEMBLER Assessment Noted Time PHQ-9 Depression Total Score: 0 02/26/2020 1:30 PM SOUVENIR ASSEMBLER documented as of this encounter Care Teams Grinder Mill Operator Relationship Specialty Start Date End Date Goran Lloyd PCP - General Family Practice 12/29/17 05/21/[address] [address] Annette Alvarez, Nurse Practitioner Clinical Nurse 03/22/17 10/21/20 SINGEING TORCH OPERATOR LOOP PULLER Specialist [address] [place], [place] [phone] Jocelyn Davidson RD Lens Edger Dietitian, Registered 05/25/18 [facility] [place] [address] Tamar Murphy APRN Assigned PCP 02/08/20 1 LOOP PULLER [address] [place] [address] documented as of this encounter
--- OUTSIDE RECORDS SUMMARY | 2022-03-09 12:41 | XMS_ITS | Encounter Summary ---
:1965 Author Organization [place] Address [facility] [place] [address] Care Team Providers Name Role Phone Annette Alvarez KIM COUNTRY SALES MANAGER Unavailable [phone] Unavailable Tamar Murphy APRN COUNTRY SALES MANAGER Unavailable Nikita Gamble Primary Care Provider Encounter Details Date Type Department Care Team Description 10/15/2020 Travel Social History Tobacco Use Types Packs/Day Years Used Date Smoking Tobacco: Never Smokeless Tobacco: Never Alcohol Use Standard Drinks/Week Comments Yes 0 (1 standard drink = 0.6 oz pure alcoho l) rare Sex Assigned at Date Recorded Female 03/04/2020 12:33 PM COTTON WRINGER COVID-19 Exposure Response Date Recorded In the [...] Depression Total Score: 0 02/26/2020 1:30 PM COTTON WRINGER documented as of this encounter Care Teams Labor Service Representative Relationship Specialty Start Date End Date Nikita Gamble PCP - General Family Medicine 05/26/[address] [id number] Annette Alvarez, Nurse Practitioner Clinical Nurse 03/22/17 10/21/20 CLOTH DOUBLING MACHINE OPERATOR COUNTRY SALES MANAGER Specialist [address] [place] [address] Real Estate Specialist Dietitian, Registered 05/25/18 [facility] [address] [place] [address] [address] [place] [id number] Tamar Murphy, CLOTH DOUBLING MACHINE OPERATOR Assigned PCP 02/08/20 1 COUNTRY SALES MANAGER [address] [place], [place] [phone] documented as of this encounter
--- OUTSIDE RECORDS SUMMARY | 2022-03-09 12:41 | XMS_ITS | Encounter Summary ---
:1965 Author Organization [place] Address [address] [facility]. [address] Care Team Providers Name Role Phone Annette Alvarez KIM RAND CEMENTER Unavailable Jocelyn Davidson RD Unavailable Tamar Murphy APRN RAND CEMENTER Unavailable Nikita Gamble Primary Care Provider Reason for Visit Reason Onset Date Comments Panel Management 06/26/2020 Encounter Details Date Type Department Care Team Description 06/26/2020 [facility] Tamar Murphy APRN Panel Management [facility] [address] [address] [phone] (Wo rk) Social History Tobacco Use Types Packs/Day Years Used Date Smoking Tobacco: Never Smokeless Tobacco: Never Alcohol Use Standard Drinks/Week Comments Yes 0 (1 standard drink = 0.6 oz pure alcoho l) rare Sex Assigned at Date Recorded Female 03/04/2020 12:33 PM YOUTH ASSOCIATE documented as of this encounter Miscellaneous Notes [...] Depression Total Score: 0 02/26/2020 1:30 PM YOUTH ASSOCIATE documented as of this encounter Care Teams Civil Cad Tech Relationship Specialty Start Date End Date Nikita Gamble PCP - General Family Medicine 05/26/20 [facility] [address] [place] [address] Annette Alvarez, Nurse Practitioner Clinical Nurse 03/22/17 10/21/20 BUSINESS OPERATIONS DIRECTOR RAND CEMENTER Specialist [address] [place], [place] [phone] Jocelyn Davidson RD Imagery Intelligence Dietitian, Registered 05/25/18 [facility] [address] [place] [address] [place] [address] Tamar Murphy APRN Assigned PCP 02/08/20 1 RAND CEMENTER [address] [place] [address] documented as of this encounter
--- OUTSIDE RECORDS SUMMARY | 2022-03-09 12:41 | XMS_ITS | Encounter Summary ---
:1965 Author Organization [place] Address [facility] [place] [address] Care Team Providers Name Role Phone Jocelyn [...] at Date Recorded Female 03/04/2020 12:33 PM PUBLIC WELFARE DIRECTOR COVID-19 Exposure Response Date Recorded In [...] Depression Total Score: 0 02/26/2020 1:30 PM PUBLIC WELFARE DIRECTOR documented as of this encounter Care Teams Electrical Assembly Technician Relationship Specialty Start Date End Date Nikita Gamble PCP - General Family Medicine 05/26/20 [facility] [address] [place] [address] Time Study Statistician Dietitian, Registered 05/25/18 [facility] [place] [address] Naveen Casiano MD Assigned PCP 11/16/20 [address] [place] [address] documented as of this encounter
--- OUTSIDE RECORDS SUMMARY | 2022-03-09 12:41 | XMS_ITS | Encounter Summary ---
:1965 Author Organization [place] Address [address] [place] [place] [address] Care Team Providers Name Role Phone Jocelyn Davidson RENATA Unavailable Tamar Murphy APRN MEAT CARRIER Unavailable Nikita Gamble Primary Care Provider Reason for Visit Reason Comments Headache Encounter Details Date Type Department Care Team Description 11/06/2020 Office Visit [facility] Naveen Casiano, Migrain e with status [facility] [place] migrainosus, [address] intractable, [place], [place] unspeci fied migraine [address] type (Primary Dx) [phone] Social History Tobacco Use Types Packs/Day Years Used Date Smoking Tobacco: Never Smokeless Tobacco: Never Alcohol Use Standard Drinks/Week Comments Yes 0 (1 standard drink = 0.6 oz pure alcoho l) rare Sex Assigned at Date Recorded Female 03/04/2020 12:33 PM FACILITIES MAINTENANCE ASSISTANT COVID-19 Exposure Response Date Recorded In [...] Depression Total Score: 0 02/26/2020 1:30 PM FACILITIES MAINTENANCE ASSISTANT documented as of this encounter Care Teams Idea Worker Relationship Specialty Start Date End Date Nikita Gamble PCP - General Family Medicine 05/26/20 [facility] [address] [place] [address] Sheriff'S Sergeant Dietitian, Registered 05/25/18 [facility] [place] [address] Tamar Murphy APRN MEAT CARRIER Assigned PCP 02/08/20 11/15/20 [address] [place] [address] documented as of this encounter
--- OUTSIDE RECORDS SUMMARY | 2022-03-09 12:41 | XMS_ITS | Encounter Summary ---
:1965 Author Organization [place] Address [address] [facility] [place] [address] Care Team Providers Name Role Phone Annette Alvarez KIM WAFER BATTER MIXER Unavailable Goran Lloyd Primary Care Provider Jocelyn Davidson RD Unavailable Tamar Murphy APRN WAFER BATTER MIXER Unavailable Encounter Details Date Type Department Care Team Description 03/25/2020 Telephone [facility] Tamar Murphy APRN [address] [phone] [place] [address] (Wo rk) Social History Tobacco Use Types Packs/Day Years Used Date Smoking Tobacco: Never Smokeless Tobacco: Never Alcohol Use Standard Drinks/Week Comments Yes 0 (1 standard drink = 0.6 oz pure alcoho l) rare Sex Assigned at Date Recorded Female 03/04/2020 12:33 PM GROCERY CADDY COVID-19 Exposure Response Date Recorded In the last month, have you been in contact with No / Unsure 03/05/2020 11:41 AM GROCERY CADDY someone who was confirmed or suspected to have Coronavirus / COVID-19? documented as of this encounter Plan of Treatment Not on filedocumented as of this encounter Visit Diagnoses Not on filedocumented in this encounter Additional Health Concerns Assessment Noted Time PHQ-9 Depression Total Score: 0 02/26/2020 1:30 PM GROCERY CADDY documented as of this encounter Care Teams Education Administrator Relationship Specialty Start Date End Date Goran Lloyd PCP - General Family Practice 12/29/17 05/21/[address] [address] Annette Alvarez, Nurse Practitioner Clinical Nurse 03/22/17 10/21/20 SENIOR PYTHON DEVELOPER WAFER BATTER MIXER Specialist [address] [place], [place] [phone] Jocelyn Davidson RD Oil And Gas Recruiter Dietitian, Registered 05/25/18 [facility] [address] [place] [address] [place] [address] Tamar Murphy APRN Assigned PCP 02/08/20 1 WAFER BATTER MIXER [address] [place], [place] [phone] documented as of this encounter
--- OUTSIDE RECORDS SUMMARY | 2022-03-09 12:41 | XMS_ITS | Encounter Summary ---
:1965 Author Organization [place] Address [facility] [place] [address] Care Team Providers Name Role Phone Jocelyn Davidson RENATA Unavailable Tamar Murphy APRN BOW MAKER GIFT WRAPPING Unavailable Nikita Gamble Primary Care Provider Reason for Visit Reason Onset Date Comments Orders 10/22/2020 labs Encounter Details Date Type Department Care Team Description 10/22/2020 Telephone [facility] Naveed Lin Orders (labs) Kenny Banegas MD [address] [facility] NO INFO AVAILABLE SHARAN Cox [phone] Social History Tobacco Use Types Packs/Day Years Used Date Smoking Tobacco: Never Smokeless Tobacco: Never Alcohol Use Standard Drinks/Week Comments Yes 0 (1 standard drink = 0.6 oz pure alcoho l) rare Sex Assigned at Date Recorded Female 03/04/2020 12:33 PM HEAVY EQUIPMENT OPERATOR/PAVER COVID-19 Exposure Response Date Recorded In the [...] Rader - 10/22/2020 12:51 PM CDT M [facility] Call Center Phone Message May a detailed message be left on voicemail: yes Reason for Call: Order(s): Other: Reason for requested: labs for upcoming appt 12/03/20 Date needed: whenever possible Provider name: Delia Pt would like A1C lab, as well as any other labs placed in system for upcoming appt 12/03/20. Pt previously seen by Dr. Annette Alvarez. Please send Alinto message when pt can schedule labs. Action [...] City/State/ZIP Code Phon [place] [address] [phone] [place] [facility] [address] [facility] Lab (no room number, 1st floor of clinic) CR LAB[facility]ATORY [place], [place] [phone] [facility] [phone] [address] [facility] Lab (no room number, 1st floor of clinic) documented in this encounter Visit Diagnoses Diagnosis Type 1 diabetes mellitus (H) - Primary Type I (juvenile type) diabetes mellitus without mention of complication, not stated as uncontrolled documented in this encounter Additional Health Concerns Assessment Noted Time PHQ-9 Depression Total Score: 0 02/26/2020 1:30 PM HEAVY EQUIPMENT OPERATOR/PAVER documented as of this encounter Care Teams Full Time Staff Interpreter Relationship Specialty Start Date End Date Nikita Gamble PCP - General Family Medicine 05/26/20 [facility] [address] [place] [address] Material Movers Dietitian, Registered 05/25/18 [facility] [place] [address] Tamar Murphy APRN BOW MAKER GIFT WRAPPING Assigned PCP 02/08/20 11/15/20 [address] [place] [address] documented as of this encounter
--- OUTSIDE RECORDS SUMMARY | 2022-03-09 12:41 | XMS_ITS | Encounter Summary ---
:1965 Author Organization [place] Address [address] [facility] [place] [address] Care Team Providers Name Role Phone Annette Alvarez APRN ARCHITECTURE DRAFTER Unavailable Jocelyn Davidson RD Unavailable Tamar Murphy DITCH REPAIRER ARCHITECTURE DRAFTER Unavailable Nikita Gamble Primary Care Provider Naveen Casiano MD Unavailable Harlan Lin MD Unavailable Unavailable Mikki Blevins MD Unavailable Mikki Blevins MD Unavailable Mindi Llanes PA-C Unavailable Reason for Visit Reason Comments Medication Refill Encounter Details Date Type Department Care Team Description 06/05/2020 Refill [facility] Annette Alvarez, Medication Refill Mobile DITCH REPAIRER ARCHITECTURE DRAFTER [id number] [place], [place] [phone] [place] [address] (Wo rk) Social History Tobacco Use Types Packs/Day Years Used Date Smoking Tobacco: Never Smokeless Tobacco: Never Alcohol Use Standard Drinks/Week Comments Yes 0 (1 standard drink = 0.6 oz pure alcoho l) rare Sex Assigned at Date Recorded Female 03/04/2020 12:33 PM CORE MAN documented as of this encounter Miscellaneous Notes Telephone Encounter - Jasmyn Lee RN - 06/05/2020 11:52 AM CST Prescription approved per [facility] Refill Protocol. Jasmyn Lee RN [facility] -- Triage Nurse MAN documented in this encounter Plan of Treatment Not on filedocumented as of this encounter Visit Diagnoses Diagnosis 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 documented in this encounter Additional Health Concerns Assessment Noted Time PHQ-9 Depression Total Score: 0 02/26/2020 1:30 PM CORE MAN documented as of this encounter Care Teams Labelling Machine Operator Relationship Specialty Start Date End Date Nikita Gamble PCP - General Family Medicine 05/26/20 [facility] [address] [place] [address] Annette Alvarez, Nurse Practitioner Clinical Nurse 03/22/17 10/21/20 DITCH REPAIRER ARCHITECTURE DRAFTER Specialist [address] [place] [address] Implementation Specialist Payroll Dietitian, Registered 05/25/18 [facility] [address] [place] [address] Tamar Murphy, Assigned PCP 02/08/20 11/15/20 DITCH REPAIRER ARCHITECTURE DRAFTER [address] [place] [address] Naveen Casiano MD Assigned PCP 11/16/20 [address] [place], [place] [phone] Harlan Lin Assigned Endocrinology 12/07/20 08/01/21 MD [facility] Provider NO INFO AVAILABLE Mikki Blevins MD MD Endocrinology, 05/07/[address] [place] [address] Diabetes, and [place], [place] Metabolism [phone] Mikki Blevins MD Assigned Endocrinology 08/02/21 [facility] [place], [place] [phone] Mindi Llanes Assigned Surgical 09/26/21 [facility] Provider [address] [place] [address] documented as of this encounter
--- OUTSIDE RECORDS SUMMARY | 2022-03-09 12:41 | XMS_ITS | Encounter Summary ---
:1965 Author Organization [place] Address [address] [facility] [place] [address] Care Team Providers Name Role Phone Annette Alvarez Mabel ALVAREZ ALUMINUM MOLDER Unavailable Jocelyn Davidson RD Unavailable Tamar Murphy APRN ALUMINUM MOLDER Unavailable Nikita Gamble Primary Care Provider Reason for Visit Reason Onset Date Comments Diabetes Education 05/22/2020 scheduling outreach Encounter Details Date Type Department Care Team Description 05/22/2020 Telephone [facility] Annette Nuñez Diabetes E ducation [facility] [place] KIM Monroe ALUMINUM MOLDER (scheduling outreach) [address] [facility] [address] [place] [id number] Social History Tobacco Use Types Packs/Day Years Used Date Smoking Tobacco: Never Smokeless Tobacco: Never Alcohol Use Standard Drinks/Week Comments Yes 0 (1 standard drink = 0.6 oz pure alcoho l) rare Sex Assigned at Date Recorded Female 03/04/2020 12:33 PM SENIOR UNDERWRITING ASSISTANT documented as of this encounter Miscellaneous Notes Telephone Encounter - Trinidad Thomas - 05/22/2020 3:21 PM CST Diabetes Education Scheduling Outreach #1: Call to patient to schedule. Left message with phone number to call to schedule. Plan for 2nd outreach attempt within 1 week. Trinidad Ad[facility] Scheduling OR UNDERWRITING ASSISTANT documented in this encounter Plan of Treatment Not on filedocumented as of this encounter Visit Diagnoses Not on filedocumented in this encounter Additional Health Concerns Assessment Noted Time PHQ-9 Depression Total Score: 0 02/26/2020 1:30 PM SENIOR UNDERWRITING ASSISTANT documented as of this encounter Care Teams Citrix Architect Relationship Specialty Start Date End Date Nikita Gamble PCP - General Family Medicine 05/26/20 [facility] [address] [place] [address] Annette Alvarez, Nurse Practitioner Clinical Nurse 03/22/17 10/21/20 BLOCK ENGRAVER ALUMINUM MOLDER Specialist [address] [place], [place] [phone] Jocelyn Davidson RD Picture Framer Dietitian, Registered 05/25/18 [facility] [place] [address] Tamar Murphy APRN Assigned PCP 02/08/20 1 ALUMINUM MOLDER [address] [place] [address] documented as of this encounter
--- OUTSIDE RECORDS SUMMARY | 2022-03-09 12:41 | XMS_ITS | Encounter Summary ---
:1965 Author Organization [place] Address [address] [facility] [place] [address] Care Team Providers Name Role Phone StuartJocelyn [...] Expiration Date Visits Requ ested Visits Authorized [id number] Closed 12/03/2020 12/03/2021 1 1 Scheduling Instructions Jocelyn Davidson please. 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 The email she has for her [employer] account is listed as not being found. Remarks on prior issues with lows that resolved with lowering basal rates but has also taken to having scheduled snacks. She does not give insulin for these snacks. Notes she is having highs after her afternoon snack at 1545. Also having highs at [phone]. Dinner is [phone]. ROS: 10 point ROS neg other than [...] DM. 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 Exam: GENERAL: Healthy, alert and no [...] Location): Other office Distant Location (provider location): [facility] Platform used for Video Visit: [employer] Harlan Lin MD on 12/03/2020 at 11:31 [...] LAB - BLOOD ORDERABLES Performing Organization Address City/[facility]/ZIP Code Phon e Number CR LABORATORY [facility] [place] [address] [place] [facility] [address] [facility] Lab (no room number, 1st floor of clinic) CR LABORATORY [place], [place] [phone] [facility] [address], [facility] Lab [address] [facility] Lab (no room number, [...] ORDERABLES Performing Organization Address City/[facility]/ZIP Code Phon e Number OX LABORATORY [place], [place] [phone] [facility] [facility] [phone] [place] [address] Lab (no room number, 1st floor of clinic) OX LABORATORY [place], [place] [phone] [facility] [phone] [place] [facility] [address] Lab (no room number, 1st floor [...] Anatomical Collection Method / Collection Time Recei olag Time (Source) Location / Volume Laterality Blood [...] City/State/ZIP Code Phon e Number OX LABORATORY [facility] [place], [place] [phone] [facility] [place] [facility] [address] [place] [address] Lab (no room number, 1st floor of clinic) OX LABORATORY [place], [place] [phone] [facility] [place] [address], [facility] [place] [facility] [address] Lab (no room number, 1st floor of clinic) (ABNORMAL) BASIC METABOLIC PANEL (01/05/2021 3:03 PM CDT) [employer] gist Method Time Signature Sodium 134 133 [...] City/State/ZIP Code Phon e Number OX LABORATORY [facility] [place], [place] [phone] [facility] [place] [facility] [address] Lab (no room number, 1st floor of clinic) OX LABORATORY [place], [place] [phone] [place] [facility] [address] Lab (no room number, 1st floor [...] City/State/ZIP Code Phon e Number OX LABORATORY [place], [place] [phone] [facility] [address] [place] [address] Lab (no room number, 1st floor of clinic) OX LABORATORY [place], [place] [phone] [place] [facility] [address] Lab (no room number, 1st floor [...] Total Score: 0 02/26/2020 1:30 PM COMPUTER SYSTEMS CONSULTANT documented as of this encounter Care Teams Sewer Pipe Cleaner Relationship Specialty Start Date End Date Nikita Gamble PCP - General Family Medicine 05/26/20 [facility] [address] [place] [address] Adult Day Care Worker Dietitian, Registered 05/25/18 [facility] [address] [place] [address] SHARAN CARSON [address] Naveen Casiano MD Assigned PCP 11/16/20 [address] [place] [address] documented as of this encounter
--- OUTSIDE RECORDS SUMMARY | 2022-03-09 12:41 | XMS_ITS | Encounter Summary ---
:1965 Author Organization [place] Address [address] [facility] [place] [address] Care Team Providers Name Role Phone Jocelyn Davidson RD Unavailable Nikita Gamble Primary Care Provider Naveen Casiano MD Unavailable Harlan Lin MD Unavailable Unavailable Mikki Blevins MD Unavailable Mikki Blevins MD Unavailable Mindi Llanes PA-C Unavailable [phone] Reason for Visit Reason Onset Date Comments Diabetes Education 12/05/2020 Encounter Details Date Type Department Care Team Description 12/05/2020 Telephone [facility] Harlan Lin gail Education [place] Endocrinolog y MD Bassam [address] [facility] [place] [address] AVAILABLE [phone] Social History Tobacco Use Types Packs/Day Years Used Date Smoking Tobacco: Never Smokeless Tobacco: Never Alcohol Use Standard Drinks/Week Comments Yes 0 (1 standard drink = 0.6 oz pure alcoho l) rare Sex Assigned at Date Recorded Female 03/04/2020 12:33 PM CARD CHECKER COVID-19 Exposure Response Date Recorded In the [...] outreach attempt within 1 week. Hernando Gray [place] [facility] Scheduling documented in this encounter Plan of Treatment Not on filedocumented as of this encounter Visit Diagnoses Not on filedocumented in this encounter Additional Health Concerns Assessment Noted Time PHQ-9 Depression Total Score: 0 02/26/2020 1:30 PM CARD CHECKER documented as of this encounter Care Teams Weigher And Charger Relationship Specialty Start Date End Date Nikita Gamble PCP - General Family Medicine 05/26/[address] Bootmaker Dietitian, Registered 05/25/18 [facility] [address] [place] [address] [place] [address] Naveen Casiano MD Assigned PCP 11/16/20 [address] [place] [address] Harlan Lin Assigned Endocrinology 12/07/20 08/01/21 MD [facility] Provider NO INFO AVAILABLE Mikki Blevins MD MD Endocrinology, 05/07/21 [address] [facility] Diabetes, and [place], [place] Metabolism [phone] Mikki Blevins MD Assigned Endocrinology 08/02/21 [facility] [place] [address] Mindi Llanes Assigned Surgical 09/26/21 [facility] Provider [address] [place] [address] [address] [place] [address] documented as of this encounter
--- OUTSIDE RECORDS SUMMARY | 2022-03-09 12:41 | XMS_ITS | Encounter Summary ---
:1965 Author Organization [place] Address [address] [facility] [place] [address] Care Team Providers Name Role Phone Jocelyn Davidson RENATA Unavailable Nikita Gamble Primary Care Provider Naveen Casiano MD Unavailable Harlan Lin MD Unavailable Unavailable Encounter Details Date Type Department Care Team Description 01/01/2021 Orders Only [facility] Naveen Casiano, Post-tr aumatic Clinic [place] osteoarthritis of left [address] [place] [address] knee (Primary Dx) [place] [phone] Social History Tobacco Use Types Packs/Day Years Used Date Smoking Tobacco: Never Smokeless Tobacco: Never Alcohol Use Standard Drinks/Week Comments Yes 0 (1 standard drink = 0.6 oz pure alcoho l) rare Sex Assigned at Date Recorded Female 03/04/2020 12:33 PM BROKERAGE CLERK COVID-19 Exposure Response Date Recorded In [...] the Xpert Xpress SARS-CoV-2 Assay on the freeeXpert Instrument Systems. A dditional information about this [...] COVID-19. This test was validated by the [facility] Infectious Diseases Diagnostic Laboratory. This lab oratory is certified under the Clinical Laboratory Improvement Amen dments of 1987 (CLIA-88) as qualified to perform high complexity lab oratory testing. Naveen Casiano MD LAB - MICRO GENERAL ORDERABL ES Performing Organization Address City/State/ZIP Code Phon e Number [facility] [place] [phone] Diag. Lab [address] [facility], Room D297 [facility] Infectious [place], [place] [phone] Diseases Diagnostic [phone], [facility] Lab (IDDL) [address] [facility], Room D297 documented in this encounter Visit Diagnoses Diagnosis Post-traumatic osteoarthritis of left kn ee - Primary Secondary localized osteoarthrosis, lowe r leg documented in this encounter Additional Health Concerns Assessment Noted Time PHQ-9 Depression Total Score: 0 02/26/2020 1:30 PM BROKERAGE CLERK documented as of this encounter Care Teams Veneer Sample Maker Relationship Specialty Start Date End Date Nikita Gamble PCP - General Family Medicine 05/26/20 [facility] [address] [place] [address] Housekeeping Attendant Dietitian, Registered 05/25/18 [facility] [address] [place] [address] Naveen Casiano MD Assigned PCP 11/16/20 [address] [place] [address] Harlan Lin Assigned Endocrinology 12/07/20 08/01/21 MD Bassam Provider NO INFO AVAILABLE documented as of this encounter
--- OUTSIDE RECORDS SUMMARY | 2022-03-09 12:41 | XMS_ITS | Encounter Summary ---
:1965 Author Organization [place] Address [address] [facility] [place] [address] Care Team Providers Name Role Phone Jocelyn Davidson RENATA Unavailable Nikita Gamble Primary Care Provider Naveen Casiano MD Unavailable Harlan Lin MD Unavailable Unavailable Encounter Details Date Type Department Care Team Description 01/03/2021 Lab Health [facility] Naveen Casiano MD [facility] [address] [facility] osteoarthritis of left knee [address] [place] [phone] Social History Tobacco Use Types Packs/Day Years Used Date Smoking Tobacco: Never Smokeless Tobacco: Never Alcohol Use Standard Drinks/Week Comments Yes 0 (1 standard drink = 0.6 oz pure alcoho l) rare Sex Assigned at Date Recorded Female 03/04/2020 12:33 PM WOOD POLISHER COVID-19 Exposure Response Date Recorded In the [...] the Xpert Xpress SARS-CoV-2 Assay on the Bunkspeed-Xpert Instrument Systems. A dditional information about this [...] COVID-19. This test was validated by the [facility] Infectious Diseases Diagnostic Laboratory. This lab oratory is certified under the Clinical Laboratory Improvement Amen dments of 1987 (CLIA-88) as qualified to perform high complexity lab oratory testing. Naveen Casiano MD LAB - MICRO GENERAL ORDERABL ES Performing Organization Address City/State/ZIP Code Phon e Number [facility] IDD LABORATORY [facility] [phone] Diag. Lab 500 [facility], Room D297 [facility] IDD LABORATORY [facility] Infectious [place], [place] [phone] Diseases Diagnostic [phone], [facility] Lab (IDDL) [address] [facility], Room D297 documented in this encounter Visit Diagnoses Diagnosis Post-traumatic osteoarthritis of left kn ee Secondary localized osteoarthrosis, lowe r leg documented in this encounter Additional Health Concerns Assessment Noted Time PHQ-9 Depression Total Score: 0 02/26/2020 1:30 PM WOOD POLISHER documented as of this encounter Care Teams Outside Machinist Apprentice Relationship Specialty Start Date End Date Nikita Gamble PCP - General Family Medicine 05/26/20 [facility] [address] [place] [address] Selenium Plant Operator Dietitian, Registered 05/25/18 [facility] [address] [place] [address] [place] [phone] Naveen Casiano MD Assigned PCP 11/16/20 [address] [place], [place] [phone] Harlan Lin Assigned Endocrinology 12/07/20 08/01/21 MD Bassam Provider NO INFO AVAILABLE documented as of this encounter
--- OUTSIDE RECORDS SUMMARY | 2022-03-09 12:41 | XMS_ITS | Encounter Summary ---
:1965 Author Organization [place] Address Critical access hospital0 [facility] [place] [address] Care Team Providers Name Role Phone Jocelyn [...] at Date Recorded Female 03/04/2020 12:33 PM MAGAZINE GRINDER LOADER COVID-19 Exposure Response Date Recorded In the [...] Depression Total Score: 0 02/26/2020 1:30 PM MAGAZINE GRINDER LOADER documented as of this encounter Care Teams Electronic Technician Relationship Specialty Start Date End Date Nikita Gamble PCP - General Family Medicine 05/26/20 [facility] [address] [place] [address] Tailercpa Dietitian, Registered 05/25/18 [facility] [place] [address] Naveen Casiano MD Assigned PCP 11/16/20 [address] [place] [address] documented as of this encounter
--- OUTSIDE RECORDS SUMMARY | 2022-03-09 12:41 | XMS_ITS | Encounter Summary ---
:1965 Author Organization [place] Address [facility] 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 Mj Tenorio MD Procedures XR Chest 1 View, Portable Internet [address] [place], [place] [id number] 4 Referral ID Status Reason Start Date Expiration Date Visits Requ ested Visits Authorized [id number] Closed 10/15/2020 10/15/2021 1 1 Reason for Visit Diagnostic Imaging XR (Routine) - Closed Specialty Diagnoses / Procedures Referred By Contact Refer red To Contact Diagnoses Positive QuantiFERON-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 Mj Tenorio MD Procedures XR Chest 1 View, Admittedly [place] [id number] 4 Referral ID Status Reason Start Date Expiration Date Visits Requ ested Visits Authorized [id number] Closed 10/15/2020 10/15/2021 1 1 Encounter Details Date Type Department Care Team Description 10/15/2020 Hospital Encounter [facility] Mj Tenorio Positive [facility] MD Olegario QuantiFERON-TB Gold [address] test [facility] 213 [address] [place], [place] [phone] [address] Social History Tobacco Use Types Packs/Day Years Used Date Smoking Tobacco: Never Smokeless Tobacco: Never Alcohol Use Standard Drinks/Week Comments Yes 0 (1 standard drink = 0.6 oz pure alcoho l) rare Sex Assigned at Date Recorded Female 03/04/2020 12:33 PM EXTRUDER OPERATOR MULTIPLE COVID-19 Exposure Response Date Recorded In the [...] hours Using T:Connect: Yes Dexcom Sharing Code: [id number] insulin syringe-needle Use 1 syringe as 20 [...] this encounter Results XR Chest 1 View, Portable Internet (10/15/2020 9:33 AM CDT) Anatomical Region Laterality [...] Depression Total Score: 0 02/26/2020 1:30 PM EXTRUDER OPERATOR MULTIPLE documented as of this encounter Care Teams Sap Senior Developer Relationship Specialty Start Date End Date Nikita Gamble PCP - General Family Medicine 05/26/20 [facility] [address] [place] [address] Annette Alvarez, Nurse Practitioner Clinical Nurse 03/22/17 10/21/20 [facility] VALVE MACHINE OPERATOR Specialist [address] [place], [place] [phone] Jocelyn Davidson RD Shook Splicer Dietitian, Registered 05/25/18 [facility] [place] SHARAN CAR[place] [address] Tamar Murphy APRN Assigned PCP 02/08/20 1 VALVE MACHINE OPERATOR [address] [place], [place] [phone] documented as of this encounter
--- OUTSIDE RECORDS SUMMARY | 2022-03-09 12:41 | XMS_ITS | Encounter Summary ---
:1965 Author Organization [place] Address [address] [facility] [place] [address] Care Team Providers Name Role Phone Annette Alvarezmamadou ALVAREZ LABOR CONCILIATOR Unavailable Jocelyn Davidson RD Unavailable Tamar Murphy APRN LABOR CONCILIATOR Unavailable Nikita Gamble Primary Care Provider Reason for Visit Reason Onset Date Comments Hypoglycemia 07/28/2020 Encounter Details Date Type Department Care Team Description 07/28/2020 Telephone [facility] Tamar Murphy APRN Hypoglycemia [place] [phone] [address] [phone] [place] [address] (Wo rk) Social History Tobacco Use Types Packs/Day Years Used Date Smoking Tobacco: Never Smokeless Tobacco: Never Alcohol Use Standard Drinks/Week Comments Yes 0 (1 standard drink = 0.6 oz pure alcoho l) rare Sex Assigned at Date Recorded Female 03/04/2020 12:33 PM WINDOW CASER documented as of this encounter Miscellaneous Notes Telephone Encounter - Tamar Murphy APRN LABOR CONCILIATOR - 07/28/2020 5:57 PM CDT Responded to staff request as MAURICE concerned for low blood sugar. Patient with repeated wording and inconsistent with conversation. Patient's CGM checked and was at 70. Patient given personal glucose drink, Mt Dew, and glucose drinkfrom lab of 150 mg of glucose. magnetic resonance technologist called to room to check glucose [...] strong recommendations against it. Tamar Murphy APRN LABOR CONCILIATOR on 07/28/2020 at 6:04 PM documented in this encounter Plan of Treatment Not on filedocumented as of this encounter Visit Diagnoses Not on filedocumented in this encounter Additional Health Concerns Assessment Noted Time PHQ-9 Depression Total Score: 0 02/26/2020 1:30 PM WINDOW CASER documented as of this encounter Care Teams Travertine Installer Relationship Specialty Start Date End Date Nikita Gamble PCP - General Family Medicine 05/26/20 [facility] [address] [place] [address] Annette Alvarez, Nurse Practitioner Clinical Nurse 03/22/17 10/21/20 DIESEL MACHINIST LABOR CONCILIATOR Specialist [address] [place] [address] Surgery Specialist Dietitian, Registered 05/25/[address] [place] [address] Tamar Murphy APRN Assigned PCP 02/08/2011/15/ 1 LABOR CONCILIATOR [address] [place], [place] [phone] documented as of this encounter
--- OUTSIDE RECORDS SUMMARY | 2022-03-09 12:41 | XMS_ITS | Encounter Summary ---
:1965 Author Organization [place] Address [address] [facility] [place] [address] Care Team Providers Name Role Phone Annette Alvarez KIM CLINICAL EDUCATION ACADEMIC COORDINATOR Unavailable [phone] Unavailable Tamar Murphy APRN CLINICAL EDUCATION ACADEMIC COORDINATOR Unavailable Nikita Gamble Primary Care Provider Encounter Details Date Type Department Care Team Description 09/04/2020 Virtual Visit [facility] Kalpesh Salmon, Back muscle spasm Clinic [place] PRETTY (Primary Dx) [address] [place] [phone] Social History Tobacco Use Types Packs/Day Years Used Date Smoking Tobacco: Never Smokeless Tobacco: Never Alcohol Use Standard Drinks/Week Comments Yes 0 (1 standard drink = 0.6 oz pure alcoho l) rare Sex Assigned at Date Recorded Female 03/04/2020 12:33 PM TAKE AWAY MAN documented as of this encounter Progress Notes [...] No follow-ups on file. Kalpesh Salmon PA-C [facility] PRATIBHA Dye is a 55 [...] Depression Total Score: 0 02/26/2020 1:30 PM TAKE AWAY MAN documented as of this encounter Care Teams Dry Talc Racker Relationship Specialty Start Date End Date Nikita Gamble PCP - General Family Medicine 05/26/20 [facility] [address] [place] [address] Annette Alvarez, Nurse Practitioner Clinical Nurse 03/22/17 10/21/20 REMOTE BROADCAST ENGINEER CLINICAL EDUCATION ACADEMIC COORDINATOR Specialist [address] [place], [place] [phone] Jocelyn Davidson RD Enthone Solder Stripper Dietitian, Registered 05/25/18 [facility] [place] [address] Tamar Murphy APRN Assigned PCP 02/08/20 1 CLINICAL EDUCATION ACADEMIC COORDINATOR [address] [place], [place] [phone] documented as of this encounter
--- OUTSIDE RECORDS SUMMARY | 2022-03-09 12:41 | XMS_ITS | Encounter Summary ---
:1965 Author Organization [place] Address [address] [place] [address]. [place] [address] Care Team Providers Name Role Phone Annette Alvarez APRN, CNP Unavailable [phone] Goran Lloyd Primary Care Provider Jocelyn Davidson RD Unavailable Tamar Murphy APRN BURGLAR ALARM MECHANIC Unavailable Reason for Referral Patient Education (Routine) - Closed Specialty Diagnoses / Procedures Referred By Contact Refer red To Contact Diabetes Education Diagnoses Controlled type 1 diabetes mellitus with chronic kidney disease, unspecified CKD stage (H) Annette Alvarez, [facility] KIM [employer] [phone] [place] [phone] Referral ID Status Reason Start Date Expiration Date Visits Requ ested Visits Authorized [id number] Closed 03/05/2020 03/05/2021 1 1 ONOMETRY TUTOR Reason for Visit Reason Comments Diabetes Encounter Details Date Type Department Care Team Description 03/05/2020 Office Visit [facility] Annette Nuñez Controlled type 1 diabetes mellitus with chronic kidney disease, unspecified CKD stage (H) (Primary Dx); [facility] [place] KIM Monroe CNP 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; [id number] [place] [address] [phone] Social History Tobacco Use Types Packs/Day Years Used Date Smoking Tobacco: Never Smokeless Tobacco: Never Alcohol Use Standard Drinks/Week Comments Yes 0 (1 standard drink = 0.6 oz pure alcoho l) rare Sex Assigned at Date Recorded Female 03/04/2020 12:33 PM TRIGONOMETRY TUTOR COVID-19 Exposure Response Date Recorded In the last month, have you been in contact with No / Unsure 03/05/2020 11:41 AM TRIGONOMETRY TUTOR someone who was confirmed or suspected to have Coronavirus / COVID-19? documented as of this encounter Last Filed Vital Signs Vital Sign Reading Time Taken Comments Blood Pressure 110/60 03/05/2020 12:40 PM TRIGONOMETRY TUTOR Pulse 70 03/05/2020 12:40 PM TRIGONOMETRY TUTOR Temperature 36.9 ??C (98.5 ??F) 03/05/2020 12:40 PM TRIGONOMETRY TUTOR Respiratory Rate - - Oxygen Saturation 97% 03/05/2020 12:40 PM TRIGONOMETRY TUTOR Inhaled Oxygen Concentration - - Weight - - Height - - Body Mass Index - - documented in this encounter Progress Notes Annette Alvarez APRN BURGLAR ALARM MECHANIC - 03/05/2020 1:30 PM CST Name: Marnie [...] times a day Previously seeing ulysses at [employer] 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 Basic metabolic panel ??? AMBULATORY ADULT HEALTH AND SAFETY TECHNICIAN REFERRAL Radiology/Consults ordered today: More than 50% of the time spent with?Jadiel??on counseling / coordinating her??care??and discussing the above plan of care. The patient indicates understanding of the above issues and agrees withthe plan set forth. ??Total face to face??time was 25??minutes. Follow-up: 3 months with ulysses Alvarez NP Endocrinology [facility] CC: ONOMETRY TUTOR documented in this encounter Miscellaneous Notes Result Encounter Note - Annette Alvarez APRN CNP - 03/05/2020 1:30 PM TRIGONOMETRY TUTOR Marnie, As previously messaged, there was no [...] in the office. Annette Alvarez NP Endocrinology ONOMETRY TUTOR documented in this encounter Plan of Treatment Scheduled Referrals Name Type Priority Associated Diagnoses Order S chedule AMBULATORY ADULT Referral Routine Controlled type 1 Expect ed: HEALTH AND SAFETY TECHNICIAN diabetes mellitus with 03/05/2020, Expires: REFERRAL chronic kidney disease, 11/2020 unspecified CKD stage (H) documented as of this encounter Procedures Procedure Name Priority Date/Time Associated Diagnosis Comme nts ALBUMIN RANDOM URINE Routine 03/05/2020 2:40 PM Controlled typ e 1 Results for this QUANTITATIVE TRIGONOMETRY TUTOR diabetes mellitus procedure are in with chronic kidney the resu lts disease, unspecified section . CKD stage (H) TSH WITH FREE T4 Routine 03/05/2020 2:39 PM Controlled type 1 Results for this REFLEX TRIGONOMETRY TUTOR diabetes mellitus procedure are in with chronic kidney the resu lts disease, unspecified section . CKD stage (H) LIPID REFLEX TO Routine 03/05/2020 2:39 PM Controlled type 1 R esults for this DIRECT LDL PANEL TRIGONOMETRY TUTOR diabetes mellitus proced ure are in with chronic kidney the resu lts disease, unspecified section . CKD stage (H) BASIC METABOLIC PANEL Routine 03/05/2020 2:39 PM Controlled ty pe 1 Results for this TRIGONOMETRY TUTOR diabetes mellitus procedure are in with chronic kidney the resu lts disease, unspecified section . CKD stage (H) HEMOGLOBIN A1C Routine 03/05/2020 12:14 Controlled type 1 Resu lts for this PM TRIGONOMETRY TUTOR diabetes mellitus procedure are in with chronic kidney the resu lts disease, unspecified section . CKD stage (H) documented in this encounter Results Albumin Random Urine Quantitative with Creat Ratio (03/05/2020 2:40 PM TRIGONOMETRY TUTOR) [facility] Method Time Signature Creatinine 72 mg/dL 03/06/2020 [facility] Urine 8:48 AM [facility] Albumin Urine <5 mg/L 03/06/2020 [facility] mg/L 8:56 AM [facility] Albumin Urine Unable to 0 - 25 03/06/2020 [facility] mg/g Cr calculate due mg/g Cr 8:56 AM TRIGONOMETRY TUTOR CLINICS to low value [facility] Specimen Anatomical Collection Method Collection Time Receive d Time (Source) Location / / Volume Laterality Urine specimen 03/05/2020 2:40 PM 020 2:41 (specimen) TRIGONOMETRY TUTOR PM TRIGONOMETRY TUTOR Annette Alvarez RECORDS ANALYST BURGLAR ALARM MECHANIC LAB - URINE ORDERABLES Performing Organization Address City/State/ZIP Code Phon e Number [facility] [address] [place] [address] (ABNORMAL) Basic metabolic panel (03/05/2020 2:39 PM TRIGONOMETRY TUTOR) [facility] Method Time Signature Sodium 139 133 - 144 03/06/2020 [facility] mmol/L 11:26 AM [facility] Potassium 4.6 3.4 - 5.3 03/06/2020 [facility] mmol/L 11:26 AM [facility] Chloride 108 94 - 109 03/06/2020 [facility] mmol/L 11:26 AM [facility] Carbon Dioxide 25 20 - 32 03/06/2020 [facility] mmol/L 11:43 AM [facility] Anion Gap 6 3 - 14 03/06/2020 [facility] mmol/L 11:43 AM [facility] Glucose 64 (L) 70 - 99 03/06/2020 [facility] mg/dL 11:43 AM [facility] Urea Nitrogen 38 (H) 7 - 30 03/06/2020 [facility] mg/dL 11:43 AM [facility] Creatinine 1.83 (H) 0.52 - 03/06/2020 [facility] 1.04 11:43 AM [facility] mg/dL [facility] GFR Estimate 31 (L) >60 03/06/2020 [facility] mL/min/{1 11:43 AM [facility] .73_m2} HOSPITAL Comment: Non GFR Calc Starting 03/14/2018, serum creatinine ba sed estimated GFR (eGFR) will be calculated using the Chronic Kidney Dise [facility] Epidemiology Collaboration (CKD-EPI) equation. GFR Estimate If 35 (L) >60 mL/min/{1.73_m2} 03/06/2020 11 :43 AM [facility] Comment: GFR Calc Starting 03/14/2018, serum creatinine ba sed estimated GFR (eGFR) will be calculated using the Chronic Kidney Dise [facility] Epidemiology Collaboration (CKD-EPI) equation. Calcium 9.1 8.5 - 10.1 mg/dL 03/06/2020 11:43 AM [facility] Specimen Anatomical Collection Method Collection Time Receive d Time (Source) Location / / Volume Laterality Blood specimen 03/05/2020 2:39 PM 020 2:40 (specimen) TRIGONOMETRY TUTOR PM TRIGONOMETRY TUTOR Annette Alvarez RECORDS ANALYST BURGLAR ALARM MECHANIC LAB - BLOOD ORDERABLES Performing Organization Address City/State/ZIP Code Phon e Number [facility] [address] [phone] [facility] [address] [place], [place] [address] [facility] [address] [address], [facility] [phone] (ABNORMAL) Lipid panel reflex to direct LDL Fasting (03/05/2020 2:39 PM TRIGONOMETRY TUTOR) athologist Signature Cholesterol 170 <200 mg/dL 03/06/2020 [facility] 11:43 AM [facility] Triglycerides 224 (H) <150 mg/dL 03/06/2020 [facility] 11:43 AM [facility] Comment: Borderline high: ??150-199 mg/dl High: ? 200-499 mg/dl Very high: ? >499 mg/dl HDL Cholesterol 57 >49 mg/dL 03/06/2020 11:51 AM [facility] LDL Cholesterol 68 <100 mg/dL 03/06/2020 11:51 AM [facility] Calculated [facility] Comment: Desirable: <100 mg/dl Non HDL Cholesterol 113 <130 mg/dL 03/06/2020 11:[address] [facility] Specimen Anatomical Collection Method Collection Time Receive d Time (Source) Location / / Volume Laterality Blood specimen 03/05/2020 2:39 PM 020 2:40 (specimen) TRIGONOMETRY TUTOR PM TRIGONOMETRY TUTOR Annette Alvarez APRN, CNP LAB - BLOOD ORDERABLES Performing Organization Address City/[facility]/ZIP Code Phon e Number [facility] [address] [place], [place] [address] [facility] [address] [place] [address], [place] [phone] TSH with free T4 reflex (03/05/2020 2:39 PM TRIGONOMETRY TUTOR) athologist Signature TSH 1.97 0.40 - 4.00 03/06/2020 [facility] mU/L 11:57 AM [facility] Specimen Anatomical Collection Method Collection Time Receive d Time (Source) Location / / Volume Laterality Blood specimen 03/05/2020 2:39 PM 020 2:40 (specimen) TRIGONOMETRY TUTOR PM TRIGONOMETRY TUTOR Annette Alvarez APRN, CNP LAB - BLOOD ORDERABLES Performing Organization Address City/[facility]/ZIP Code Phon e Number [facility] [address] [place] [address] (ABNORMAL) Hemoglobin A1c (03/05/2020 12:14 PM TRIGONOMETRY TUTOR) athologist Signature Hemoglobin A1C 6.6 (H) 0 - 5.6 % 03/05/2020 [facility] 12:36 PM TRIGONOMETRY TUTOR [facility] Comment: Normal <5.7% Prediabetes 5.7-6.4% ??Diab etes 6.5% or higher - adopted from ADA consensus guidelines. Specimen Anatomical Collection Method Collection Time Receive d Time (Source) Location / / Volume Laterality Blood specimen 03/05/2020 12:14 0 (specimen) PM TRIGONOMETRY TUTOR 12:28 PM TRIGONOMETRY TUTOR Annette Alvarez APRN, CNP LAB - BLOOD ORDERABLES Performing Organization Address City/[facility]/ZIP Code Phon e Number [facility] [id number] [place] [address] documented in this encounter Visit Diagnoses Diagnosis Controlled type 1 diabetes mellitus with chronic kidney disease, unspecified CKD stage (H) - Primary 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 Insulin pump in place Insulin pump status documented in this encounter Additional Health Concerns Assessment Noted Time PHQ-9 Depression Total Score: 0 02/26/2020 1:30 PM TRIGONOMETRY TUTOR documented as of this encounter Care Teams Finance Professional Relationship Specialty Start Date End Date Goran Lloyd PCP - General Family Practice 12/29/17 05/21/[address] [address] Annette Alvarez, Nurse Practitioner Clinical Nurse 03/22/17 10/21/20 RECORDS ANALYST BURGLAR ALARM MECHANIC Specialist [phone] [place] [address] Lead Teacher Dietitian, Registered 05/25/18 [facility] Kaleigh [place] [address] [place] [address] [place] [address] Tamar Murphy APRN Assigned PCP 02/08/20 1 BURGLAR ALARM MECHANIC [id number] [place] [phone] documented as of this encounter
--- OUTSIDE RECORDS SUMMARY | 2022-03-09 12:41 | XMS_ITS | Encounter Summary ---
:1965 Author Organization [place] Address [address] [place] [address]. [place] [address] Care Team Providers Name Role Phone Jocelyn Davidson RENATA Unavailable Nikita Gamble Primary Care Provider Naveen Casiano MD Unavailable Harlan Lin MD Unavailable Unavailable Encounter Details Date Type Department Care Team Description 12/05/2020 Medical Correspondence [facility] Scan, PUMP PRESCRIPTION Health Info Mgmt Non-Provider ORDER DANIELLE [facility] DIABETES CARE [address] [place] [phone] Social History Tobacco Use Types Packs/Day Years Used Date Smoking Tobacco: Never Smokeless Tobacco: Never Alcohol Use Standard Drinks/Week Comments Yes 0 (1 standard drink = 0.6 oz pure alcoho l) rare Sex Assigned at Date Recorded Female 03/04/2020 12:33 PM EXCEPTIONAL STUDENT EDUCATION TEACHER COVID-19 Exposure Response Date Recorded In [...] Depression Total Score: 0 02/26/2020 1:30 PM EXCEPTIONAL STUDENT EDUCATION TEACHER documented as of this encounter Care Teams Leather Splitter Relationship Specialty Start Date End Date Nikita Gamble PCP - General Family Medicine 05/26/20 [facility] [address] [place] [address] Business Unit Controller Dietitian, Registered 05/25/[address] [place] [address] Naveen Casiano MD Assigned PCP 11/16/20 [address] [place] [address] Harlan Lin Assigned Endocrinology 12/07/20 08/01/21 MD [place] Provider NO INFO AVAILABLE documented as of this encounter
--- OUTSIDE RECORDS SUMMARY | 2022-03-09 12:41 | XMS_ITS | Encounter Summary ---
:1965 Author Organization [place] Address [address] [facility] [place] [address] Care Team Providers Name Role Phone Jocelyn Davidson Bran YANEZ Unavailable Nikita Gamble Primary Care Provider Naveen Casiano MD Unavailable Harlan Lin MD Unavailable Unavailable Reason for Visit Reason Comments Medication Refill Encounter Details Date Type Department Care Team Description 12/10/2020 Refill [facility] Annette Alvarez, Medication Refill [address] [phone] [place] [address] (Wo rk) Social History Tobacco Use Types Packs/Day Years Used Date Smoking Tobacco: Never Smokeless Tobacco: Never Alcohol Use Standard Drinks/Week Comments Yes 0 (1 standard drink = 0.6 oz pure alcoho l) rare Sex Assigned at Date Recorded Female 03/04/2020 12:33 PM SEARCH CONSULTANT COVID-19 Exposure Response Date Recorded In [...] the [facility] refill protocol STEPHANIE Guidry, RN [facility] documented in this encounter Plan of Treatment Not on filedocumented as of this encounter Visit Diagnoses Diagnosis Type 1 diabetes mellitus with stage 3a c hronic kidney disease (H) - Primary documented in this encounter Additional Health Concerns Assessment Noted Time PHQ-9 Depression Total Score: 0 02/26/2020 1:30 PM SEARCH CONSULTANT documented as of this encounter Care Teams Grain Elevator Motor Starter Relationship Specialty Start Date End Date Nikita Gamble PCP - General Family Medicine 05/26/20 [facility] [address] [place] [address] Line Builder Dietitian, Registered 05/25/18 [facility] [address] [place] [address] [place] [address] Naveen Casiano MD Assigned PCP 11/16/20 [address] [place], [place] [id number] Harlan Lin Assigned Endocrinology 12/07/20 08/01/21 MD Bassam Provider NO INFO AVAILABLE documented as of this encounter
--- OUTSIDE RECORDS SUMMARY | 2022-03-09 12:41 | XMS_ITS | Encounter Summary ---
:1965 Author Organization [place] Address [facility] [place] [address] Care Team Providers Name Role Phone Jocelyn Davidson Bran YANEZ Unavailable Nikita Gamble Primary Care Provider Naveen Casiano MD Unavailable Encounter Details Date Type Department Care Team Description 12/02/2020 Lab [facility] Type 1 diabetes mellitus (H) [facility] [address] [phone] Social History Tobacco Use Types Packs/Day Years Used Date Smoking Tobacco: Never Smokeless Tobacco: Never Alcohol Use Standard Drinks/Week Comments Yes 0 (1 standard drink = 0.6 oz pure alcoho l) rare Sex Assigned at Date Recorded Female 03/04/2020 12:33 PM CONSULTING NURSE COVID-19 Exposure Response Date Recorded In [...] City/State/ZIP Code [place] [address] [phone] [facility] [address] [facility] (no room number, 1st floor of clinic) [facility] [place], [place] [phone] [facility] [phone] [address] [facility] (no room number, 1st floor of clinic) documented in this encounter Visit Diagnoses Diagnosis Type 1 diabetes mellitus (H) Type I (juvenile type) diabetes mellitus without mention of complication, not stated as uncontrolled documented in this encounter Additional Health Concerns Assessment Noted Time PHQ-9 Depression Total Score: 0 02/26/2020 1:30 PM CONSULTING NURSE documented as of this encounter Care Teams Supervisor Waterproofing Relationship Specialty Start Date End Date Nikita Gamble PCP - General Family Medicine 05/26/20 [facility] [address] [place] [address] Aviation Operations Specialist Dietitian, Registered 05/25/18 [facility] [place] [address] Naveen Casiano MD Assigned PCP 11/16/20 [address] [place] [address] documented as of this encounter
--- OUTSIDE RECORDS SUMMARY | 2022-03-09 12:42 | XMS_ITS | Encounter Summary ---
:1965 Author Organization [place] Address [address] [facility] [place] [address] Care Team Providers Name Role Phone Annette Alvarez APRN MERRY GO ROUND OPERATOR Unavailable Goran Lloyd Primary Care Provider Jocelyn Davidson RD Unavailable Reason for Visit Reason Onset Date Comments Diabetes 01/25/2020 Encounter Details Date Type Department Care Team Description 01/25/2020 Telephone [facility] Annette Alvarez, Diabetes Tucker DIRECTOR OF ONLINE MERCHANDISING MERRY GO ROUND OPERATOR [address] [phone] [place] [address] (Wo rk) Social History Tobacco Use Types Packs/Day Years Used Date Smoking Tobacco: Never Smokeless Tobacco: Never Alcohol Use Standard Drinks/Week Comments Yes 0 (1 standard drink = 0.6 oz pure alcoho l) rare Sex Assigned at Date Recorded Female 03/04/2020 12:33 PM PEOPLESOFT CONSULTANT documented as of this encounter Miscellaneous Notes Telephone Encounter - Annette Alvarez APRN MERRY GO ROUND OPERATOR - 01/25/2020 3:46 PM CDT Pump download [...] a day ? Annette Alvarez NP Endocrinology LESOFT CONSULTANT Telephone Encounter - Mimi Cyr CMA - [...] on filedocumented in this encounter Care Teams Leg Breaker Relationship Specialty Start Date End Date Goran Lloyd PCP - General Family Practice 12/29/17 05/21/20 [facility] [address] [place] [address] Annette Alvarez, Nurse Practitioner Clinical Nurse 03/22/17 10/21/20 [facility] MERRY GO ROUND OPERATOR Specialist [address] [place] [address] Drilling Fluids Specialist Dietitian, Registered 05/25/18 [facility] [address] [place] [address] SHARAN CARSON [phone] documented as of this encounter
--- OUTSIDE RECORDS SUMMARY | 2022-03-09 12:42 | XMS_ITS | Encounter Summary ---
:1965 Author Organization [place] Address [address] [place] [address]. [place] [address] Care Team Providers Name Role Phone Annette Alvarez COLD WORK OPERATOR SENIOR NETWORK SECURITY ARCHITECT Unavailable [phone] Goran Lloyd Primary Care Provider Jocelyn Davidson RD Unavailable Encounter Details Date Type Department Care Team Description 02/03/2020 Travel Social History Tobacco Use Types Packs/Day Years Used Date Smoking Tobacco: Never Smokeless Tobacco: Never Alcohol Use Standard Drinks/Week Comments Yes 0 (1 standard drink = 0.6 oz pure alcoho l) rare Sex Assigned at Date Recorded Female 03/04/2020 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 COVID-19 Exposure Response Date Recorded In the last month, have you been in contact with No / Unsure 02/03/2020 12:21 PM SERVICE DEVELOPER someone who was confirmed or suspected to have Coronavirus / COVID-19? documented as of this encounter Plan of Treatment Not on filedocumented as of this encounter Visit Diagnoses Not on filedocumented in this encounter Care Teams Tower Erector Helper Relationship Specialty Start Date End Date Goran Lloyd PCP - General Family Practice 12/29/17 05/21/[address] [address] Annette Alvarez, Nurse Practitioner Clinical Nurse 03/22/17 10/21/20 COLD WORK OPERATOR SENIOR NETWORK SECURITY ARCHITECT Specialist [address] [place] [address] Yarn Spooler Dietitian, Registered 05/25/18 [facility] [place] [place] [address] documented as of this encounter
--- OUTSIDE RECORDS SUMMARY | 2022-03-09 12:42 | XMS_ITS | Encounter Summary ---
:1965 Author Organization [place] Address [address] [place] [address]. 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 documented as of this encounter Plan of Treatment Not on filedocumented as of this encounter Visit Diagnoses Not on filedocumented in this encounter Care Teams Transportation Inspector Relationship Specialty Start Date End Date Goran Lloyd PCP - General Family Practice 12/29/17 05/21/20 [facility] [address] [place] [address] Annette Alvarez, Nurse Practitioner Clinical Nurse 03/22/17 10/21/20 CONSTRUCTION SALES MANAGER CLOUD AUTOMATION TESTER Specialist [address] [place], [place] [id number] Jocelyn Davidson RD Digital Cartographer Dietitian, Registered 05/25/[address] [place] [address] documented as of this encounter
--- OUTSIDE RECORDS SUMMARY | 2022-03-09 12:42 | XMS_ITS | Encounter Summary ---
:1965 Author Organization [place] Address [address] [place] [address]. [place] [address] Care Team Providers Name Role Phone Annette Alvarez APRN AIR CONDITIONING TECHNICIAN Unavailable [phone] Goran Lloyd Primary Care Provider Jocelyn Davidson RD Unavailable Reason for Referral Diagnostic Imaging XR (Routine) - Closed Specialty Diagnoses / Procedures Referred By Contact Refer red To Contact Radiology. Diagnoses Positive QuantiFERON-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 Mj Tenorio MD Rh Xray Procedures XR Chest 1 View, [place] [address] [employer] [place] [address] 4 [place] [address] Phone: Fax: Referral ID Status Reason Start Date Expiration Date Visits Requ ested Visits Authorized [id number] Closed 08/24/2019 08/23/2020 1 1 Reason for Visit Diagnostic Imaging XR (Routine) - Closed Specialty Diagnoses / Procedures Referred By Contact Refer red To Contact Radiology. Diagnoses Positive QuantiFERON-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 Mj Tenorio MD Rh Xray Procedures XR Chest 1 View, Surfing[place] [address] [place] [address] 4 [place] [address] Phone: Fax: Referral ID Status Reason Start Date Expiration Date Visits Requ ested Visits Authorized [id number] Closed 08/24/2019 08/23/2020 1 1 Encounter Details Date Type Department Care Team Description 08/24/2019 Hospital Encounter [facility] Mj Tenorio Positive [facility] MD Olegario QuantiFERON-TB Gold [address] [facility] [address] test [facility] 213 [address] [place], [place] [phone] [id number] Social History Tobacco Use Types Packs/Day Years Used Date Smoking Tobacco: Never Smokeless Tobacco: Never Alcohol Use Standard Drinks/Week Comments Yes 0 (1 standard drink = 0.6 oz pure alcoho l) rare Sex Assigned at Date Recorded Female 03/04/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 COVID-19 Exposure Response Date Recorded In the [...] hours Using T:Connect: Yes Dexcom Sharing Code: [id number] insulin syringe-needle Use 1 syringe as 20 [...] osis documented in this encounter Care Teams Quality Assurance Group Leader Relationship Specialty Start Date End Date Goran Lloyd PCP - General Family Practice 12/29/17 05/21/[address] [address] Annette Alvarez, Nurse Practitioner Clinical Nurse 03/22/17 10/21/20 CLINICAL ASSISTANT AIR CONDITIONING TECHNICIAN Specialist [address] [place], [place] [id number] Jocelyn Davidson RD Xerox Machine Assembler Dietitian, Registered 05/25/18 [facility] [address] [place] [address] [place] [address] documented as of this encounter
--- OUTSIDE RECORDS SUMMARY | 2022-03-09 12:42 | XMS_ITS | Encounter Summary ---
:1965 Author Organization [place] Address [address] [facility] [place] [address] Care Team Providers Name Role Phone Annette Alvarezmamadou ALVAREZ GLASS SELECTOR Unavailable Goran Lloyd Primary Care Provider Jocelyn Davidson RD Unavailable Encounter Details Date Type Department Care Team Description 08/16/2019 Hospital Encounter [facility] Goran Lloyd [facility] [address] [place] [address] Uncontrolled type 1 diabetes with renal manifestation (H); [facility] Antonio Annette KIM Monroe GLASS SELECTOR [address] [place], [place] [id number] Abnormal weight gain [address] [place] [address] Social History Tobacco Use Types Packs/Day Years Used Date Smoking Tobacco: Never Smokeless Tobacco: Never Alcohol Use Standard Drinks/Week Comments Yes 0 (1 standard drink = 0.6 oz pure alcoho l) rare Sex Assigned at Date Recorded Female 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 COVID-19 Exposure Response Date Recorded In [...] hours Using T:Connect: Yes Dexcom Sharing Code: [id number] insulin syringe-needle Use 1 syringe as 20 [...] Organization Address City/State/ZIP Code Phon e Number [facility] [address] [place] [address] [facility] (ABNORMAL) Renal panel (Alb, BUN, Ca, Cl, CO2, Creat, Gluc, Phos, K, Na) (08/16/2019 5:57 PM [facility]) Analysis Performed At [facility] Time Signature Sodium 136 133 - 144 08/16/2019 [place] mmol/L 6:32 PM [facility] Potassium 4.6 3.4 - 5.3 08/16/2019 [facility] mmol/L 6:32 PM [facility] Chloride 107 94 - 109 08/16/2019 [facility] mmol/L 6:32 PM [facility] Carbon Dioxide 24 20 - 32 08/16/2019 [facility] mmol/L 6:39 PM [facility] Anion Gap 5 3 - 14 08/16/2019 [place] mmol/L 6:39 PM [facility] Glucose 166 (H) 70 - 99 08/16/2019 [place] mg/dL 6:39 PM [facility] Urea Nitrogen 21 7 - 30 08/16/2019 [place] mg/dL 6:39 PM [facility] Creatinine 1.41 (H) 0.52 - 08/16/2019 [facility] 1.04 mg/dL 6:39 PM [facility] GFR Estimate 42 (L) >60 08/16/2019 [place] mL/min/{1. 6:39 PM [facility] 73_m2} [facility] Comment: Non GFR Calc Starting 03/14/2018, serum creatinine ba sed estimated GFR (eGFR) will be calculated using the Chronic Kidney Dise [facility] Epidemiology Collaboration (CKD-EPI) equation. GFR Estimate If 49 (L) >60 mL/min/{1.73_m2} 08/16/2019 6: 39 PM [place] Black [facility] Comment: GFR Calc Starting 03/14/2018, serum creatinine ba sed estimated GFR (eGFR) will be calculated using the Chronic Kidney Dise [facility] Epidemiology Collaboration (CKD-EPI) equation. Calcium 9.0 8.5 - 10.1 mg/dL 08/16/2019 6:39 PM [facility] Phosphorus 3.4 2.5 - 4.5 mg/dL 08/16/2019 6:39 PM [facility] Albumin 3.9 3.4 - 5.0 g/dL 08/16/2019 6:39 PM CDT [facility] Specimen Anatomical Collection Method Collection Time Receive d Time (Source) Location / / Volume Laterality Blood specimen 08/16/2019 5:57 PM 020 5:58 (specimen) CDT PM CDT Annette Alvarez APRN GLASS SELECTOR LAB - BLOOD ORDERABLES Performing Organization Address City/State/ZIP Code Phon e Number [facility] [address] [place] [address] [facility] [address] [place], [place] [address], [facility] [phone] [facility] [address] [place] [address], [facility] documented in this encounter Visit Diagnoses Diagnosis Uncontrolled type 1 diabetes with renal manifestation Type I (juvenile type) diabetes mellitus with renal manifestations, uncontrolled Abnormal weight gain documented in this encounter Care Teams Revenue Director Relationship Specialty Start Date End Date Goran Lloyd PCP - General Family Practice 12/29/17 05/21/[address] [address] Annette Alvarez, Nurse Practitioner Clinical Nurse 03/22/17 10/21/20 RESIDENTIAL COLLECTIONS GLASS SELECTOR Specialist [address] [place] [address] Outreach Rep Dietitian, Registered 05/25/18 [facility] [address] [place] [address] [place] [address] documented as of this encounter
--- OUTSIDE RECORDS SUMMARY | 2022-03-09 12:42 | XMS_ITS | Encounter Summary ---
:1965 Author Organization [place] Address [facility] [place] [address] Care Team Providers Name Role Phone Annette Alvarez APRN BASE REMOVER Unavailable Goran Lloyd Primary Care Provider Jocelyn Davidson Unavailable Reason for Visit Reason Onset Date Comments Forms 11/08/2019 FMLA forms Encounter Details Date Type Department Care Team Description 11/08/2019 Telephone [facility] Annette Alvarez, Forms (FMLA forms) [address] [address] [phone] (Wo rk) Social History Tobacco Use Types Packs/Day Years Used Date Smoking Tobacco: Never Smokeless Tobacco: Never Alcohol Use Standard Drinks/Week Comments Yes 0 (1 standard drink = 0.6 oz pure alcoho l) rare Sex Assigned at Date Recorded Female 03/04/2020 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 I am not allowed to sign forms for the spouse of a patient. This would have to be completed by the spouse's health care provider according to our clinical esthetician. Patient informed. Annette Alvarez NP Endocrinology Telephone [...] on filedocumented in this encounter Care Teams Drop Clipper Relationship Specialty Start Date End Date Goran Lloyd PCP - General Family Practice 12/29/17 05/21/[address] [address] Annette Alvarez, Nurse Practitioner Clinical Nurse 03/22/17 10/21/20 KIM BASE REMOVER Specialist [address] [place], [place] [phone] Jocelyn Davidson RD Cosmetician Dietitian, Registered 05/25/18 [facility] [place] [address] documented as of this encounter
--- OUTSIDE RECORDS SUMMARY | 2022-03-09 12:42 | XMS_ITS | Encounter Summary ---
:1965 Author Organization [place] Address [address] [place] [address] Care Team Providers Name Role Phone Annette Alvarezmamadou ALVAREZ WELDING EQUIPMENT REPAIRER SUPERVISOR Unavailable [phone] Goran Lloyd Primary Care Provider Jocelyn Davidson RD Unavailable Reason for Visit Reason Comments Diabetes Encounter Details Date Type Department Care Team Description 11/22/2019 Office Visit [facility] AlvarezAnnette Type 1 rohan syedes mellitus [facility] KIM Monroe WELDING EQUIPMENT REPAIRER SUPERVISOR with complications (H) [address] [facility] [id number] [place] [address] (Primary Dx) [place] [address] [phone] Social History Tobacco Use Types Packs/Day Years Used Date Smoking Tobacco: Never Smokeless Tobacco: Never Alcohol Use Standard Drinks/Week Comments Yes 0 (1 standard drink = 0.6 oz pure alcoho l) rare Sex Assigned at Date Recorded Female 03/04/2020 12:33 PM WEAVER HAND documented as of this encounter Last Filed [...] Primary documented in this encounter Care Teams Belt Cleaner Relationship Specialty Start Date End Date Goran Lloyd PCP - General Family Practice 12/29/17 05/21/[address] [address] Annette Alvarez, Nurse Practitioner Clinical Nurse 03/22/17 10/21/20 KIM WELDING EQUIPMENT REPAIRER SUPERVISOR Specialist [address] [place] [address] Direct Support Professional Home Health Dietitian, Registered 05/25/18 [facility] [place] [address] documented as of this encounter
--- OUTSIDE RECORDS SUMMARY | 2022-03-09 12:42 | XMS_ITS | Encounter Summary ---
:1965 Author Organization [place] Address [address] [place] [address] Care Team Providers Name Role Phone Annette Alvarez KIM RODRIGUEZ Unavailable [phone] Goran Lloyd Primary Care Provider Jocelyn Davidson RD Unavailable Tamar Murphy APRN ENGROSSER Unavailable Reason for Referral Diagnostic Imaging XR (Routine) - Closed Specialty Diagnoses / Procedures Referred By Contact Refer red To Contact Diagnoses Cough Tamar Murphy APRN CNP Procedures XR Chest [address] [place] [phone] Referral ID Status Reason Start Date Expiration Date Visits Requ ested Visits Authorized [id number] Closed 02/26/2020 02/25/2021 1 1 ARCH SOIL SCIENTIST Reason for Visit Reason Comments Cough Encounter Details Date Type Department Care Team Description 02/26/2020 Office Visit [facility] Tamar Murphy Cough (Primary Dx) [place] KIM ENGROSSER [address] [address] [phone] Social History Tobacco Use Types Packs/Day Years Used Date Smoking Tobacco: Never Smokeless Tobacco: Never Alcohol Use Standard Drinks/Week Comments Yes 0 (1 standard drink = 0.6 oz pure alcoho l) rare Sex Assigned at Date Recorded Female 03/04/2020 12:33 PM RESEARCH SOIL SCIENTIST COVID-19 Exposure Response Date Recorded In the last month, have you been in contact with No / Unsure 02/03/2020 12:21 PM RESEARCH SOIL SCIENTIST someone who was confirmed or suspected to have Coronavirus / COVID-19? documented as of this encounter Last Filed Vital Signs Vital Sign Reading Time Taken Comments Blood Pressure 138/70 02/26/2020 1:22 PM RESEARCH SOIL SCIENTIST Pulse 67 02/26/2020 1:22 PM RESEARCH SOIL SCIENTIST Temperature 37 ??C (98.6 ??F) 02/26/2020 1:22 PM RESEARCH SOIL SCIENTIST Respiratory Rate 19 02/26/2020 1:31 PM RESEARCH SOIL SCIENTIST Oxygen Saturation 96% 02/26/2020 1:22 PM RESEARCH SOIL SCIENTIST Inhaled Oxygen Concentration - - Weight 113.4 kg (250 lb) 02/26/2020 1:22 PM RESEARCH SOIL SCIENTIST Height 180.3 cm (5' 11) 02/26/2020 1:22 PM RESEARCH SOIL SCIENTIST Body Mass Index 34.87 02/26/2020 1:22 PM RESEARCH SOIL SCIENTIST documented in this encounter Patient Instructions Patient InstructionsGiTamar alston APRN CNP - 02/26/2020 1:30 PM CST Prednisone 2 tabs (40 mg) once daily x 5 days. No NSAID use while using prednisone (Advil, ibuprofen, naproxen, Aleve) Consider nasal irrigation ([place] Pot) Benzonatate 1 tab two times per day as needed for cough. ARCH SOIL SCIENTIST documented in this encounter Progress Notes Tamar [...] (Advil, ibuprofen, naproxen, Aleve) Consider nasal irrigation ([place] Pot) Benzonatate 1 tab two times per day as needed for cough. Return in about 2 weeks (around 03/11/2020) for if not improved. . Tamar Murphy APRN CNP [facility] ARCH SOIL SCIENTIST documented in this encounter Plan of Treatment Not on filedocumented as of this encounter Procedures Procedure Name Priority Date/Time Associated Diagnosis Comme nts XR CHEST 2 VIEWS Routine 02/26/2020 2:12 PM Cough Resul ts for this RESEARCH SOIL SCIENTIST procedure are i n the results section. COVID-19 VIRUS Routine 02/26/2020 1:00 PM Cough Results for this (CORONAVIRUS) BY RESEARCH SOIL SCIENTIST procedure a re in PCR the results section. documented in this encounter Results XR Chest 2 Views (02/26/2020 2:12 PM RESEARCH SOIL SCIENTIST) Anatomical Region Laterality Modality Chest Computed Radiography Specimen (Source) Anatomical Location Collection Method / Collectio n Time Received Time / Laterality Volume Impressions 02/26/2020 2:25 PM RESEARCH SOIL SCIENTIST IMPRESSION: PA and lateral views of the chest. Lungs are clear. Heart is normal in size. No effusions are evid ent. No pneumothorax. Degenerative spine changes are noted. Ol d healed lateral right upper rib fractures and mid left rib fractures are again noted. TONIO CRANE MD Narrative 02/26/2020 2:25 PM RESEARCH SOIL SCIENTIST CHEST TWO VIEWS ??02/26/2020 2:12 PM HISTORY: [...] Virus (Coronavirus) by PCR (02/26/2020 1:00 PM RESEARCH SOIL SCIENTIST) [facility] Method Time Signature COVID-19 Nasopharyngeal 02/26/2020 [facility] Virus PCR to 3:08 PM RESEARCH SOIL SCIENTIST [facility] Source COVID-19 Not Detected 02/27/2020 [facility] Virus PCR to 4:31 PM RESEARCH SOIL SCIENTIST [facility] Result LABORATORY, [facility] Comment: Collection of multiple specimens from [...] and amplified using the HDPCR SARS-CoV-2 assay (uBiome.). The HDPCRTM JAYDEN S-CoV-2 assay is a reverse burn crew member real-time polymerase chain reaction (qRT-PCR) test intended [...] (Centers for Disease Control) Testing performed by [facility] ([facility]) [address] [facility] [address] [facility] [address] The test performance characteristics wer e determined [...] Specimen from 02/26/2020 1:00 02/26/2020 nasopharyngeal PM RESEARCH SOIL SCIENTIST 3:08 PM RESEARCH SOIL SCIENTIST structure (specimen) Tamar Murphy APRN ENGROSSER LAB - MICRO GENERAL ORDERABL ES Performing Organization Address City/State/ZIP Code Phon e Number [facility] [place] [address] DIAGNOSTIC LABORATORY, [address] [facility] [address] [address] [place] documented in this encounter Visit Diagnoses Diagnosis Cough - Primary documented in this encounter Additional Health Concerns Infection Onset Date Last Indicated Resolved Time Rule Out COVID-19 02/26/2020 02/26/2020 02/27/2020 4:3 2 PM RESEARCH SOIL SCIENTIST Assessment Noted Time PHQ-9 Depression Total Score: 0 02/26/2020 1:30 PM RESEARCH SOIL SCIENTIST documented as of this encounter Care Teams Form Setter Metal Road Forms Relationship Specialty Start Date End Date Goran Lloyd PCP - General Family Practice 12/29/17 05/21/[address] [address] Annette Alvarez, Nurse Practitioner Clinical Nurse 03/22/17 10/21/20 DIVIDING MACHINE OPERATOR ENGROSSER Specialist [address] [place] [address] Chemical Unit Operator Dietitian, Registered 05/25/18 [facility] [address] [place] [address] [place] [address] Tamar Murphy APRN Assigned PCP 02/08/20 1 [place]OSSER [address] [place] [address] documented as of this encounter
--- OUTSIDE RECORDS SUMMARY | 2022-03-09 12:42 | XMS_ITS | Encounter Summary ---
:1965 Author Organization [place] Address [address] [facility] [place] [address] Care Team Providers Name Role Phone Annette Alvarez APRN, CNP Unavailable [phone] Goran Lloyd Primary Care Provider Jocelyn Davidson RD Unavailable Reason for Referral Vision Services (Routine) - Closed Specialty Diagnoses / Procedures Referred By Contact Refer red To Contact Diagnoses Type 1 diabetes mellitus with complications (H) Annette Alvarez [facility] KIM RODRIGUEZ SURGEONS, [address] [place], [place] [address] [address] [place] [address] Phone: Referral ID Status Reason Start Date Expiration Date Visits Requ ested Visits Authorized [id number] Closed 11/07/2019 11/06/2020 1 1 Reason for Visit Reason Comments Diabetes Thyroid Disease Encounter Details Date Type Department Care Team Description 11/07/2019 Office Visit [facility] Annette Nuñez Type 1 rohan betes mellitus with complications (H) (Primary Dx); [facility] [place] KIM Monroe CNP Benign essential hypertension [address] [place] [address] [phone] Social History Tobacco Use Types Packs/Day Years Used Date Smoking Tobacco: Never Smokeless Tobacco: Never Alcohol Use Standard Drinks/Week Comments Yes 0 (1 standard drink = 0.6 oz pure alcoho l) rare Sex Assigned at Date Recorded Female 03/04/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 Intimate partner violence Fear of current or ex partner: Not on file Emotionally abused: Not on file Physically abused: Not on file Forced sexual activity: Not on file Other Topics Concern ??? Parent/sibling w/ CABG, MO or angioplasty before 65F 55M? Not Asked [...] More than 50% of the time spent with??Ms.??Pass Christian??on counseling / coordinating her??care??and discussing the above plan of care. The patient indicates understanding of the above issues and agrees withthe plan set forth. ??Total face to face??time was 25??minutes. Follow-up: 3 months Annette Alvarez NP Endocrinology [facility] CC: documented in this encounter Miscellaneous Notes [...] 7.3 (H) 0 - 5.6 % 11/07/2019 [place] 1:29 PM CDT [facility] Comment: Normal <5.7% Prediabetes 5.7-6.4% ??Diab etes 6.5% or higher - adopted from ADA consensus guidelines. Specimen Anatomical Collection Method Collection Time Receive d Time (Source) Location / / Volume Laterality Blood specimen 11/07/2019 1:17 PM 020 1:18 (specimen) CDT PM CDT Annette Alvarez APRN LABORER LABORATORY LAB - BLOOD ORDERABLES Performing Organization Address City/State/ZIP Code Phon e Number [facility] [address] [place] [address] documented in this encounter Visit Diagnoses Diagnosis Type 1 diabetes mellitus with complicati ons (H) - Primary Benign essential hypertension Essential hypertension, benign documented in this encounter Care Teams Jewelry Facer Relationship Specialty Start Date End Date Goran Lloyd PCP - General Family Practice 12/29/17 05/21/20 [facility] [address] [place] [address] Annette Alvarez, Nurse Practitioner Clinical Nurse 03/22/17 10/21/20 RIPENING ROOM HAND LABORER LABORATORY Specialist [address] [place] [address] Camp Dishwasher Dietitian, Registered 05/25/18 [facility] [address] [place] [address] [place] [address] documented as of this encounter
--- OUTSIDE RECORDS SUMMARY | 2022-03-09 12:42 | XMS_ITS | Encounter Summary ---
:1965 Author Organization [place] Address [address] [place] [address]. 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 documented as of this encounter Plan of Treatment Not on filedocumented as of this encounter Visit Diagnoses Not on filedocumented in this encounter Care Teams Systems Development Manager Relationship Specialty Start Date End Date Goran Lloyd PCP - General Family Practice 12/29/17 05/21/[address] [address] Annette Alvarez, Nurse Practitioner Clinical Nurse 03/22/17 10/21/20 BLANKING PRESS OPERATOR STEAK TENDERIZER MACHINE Specialist [address] [place] [address] Pig Conveyor Operator Dietitian, Registered 05/25/[address] [facility] [place] [phone] documented as of this encounter
--- OUTSIDE RECORDS SUMMARY | 2022-03-09 12:42 | XMS_ITS | Encounter Summary ---
:1965 Author Organization [place] Address [address] [place] [address]. 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 documented as of this encounter Plan of Treatment Not on filedocumented as of this encounter Visit Diagnoses Not on filedocumented in this encounter Care Teams Hammer Runner Relationship Specialty Start Date End Date Goran Lloyd PCP - General Family Practice 12/29/17 05/21/[address] [address] Annette Alvarez, Nurse Practitioner Clinical Nurse 03/22/17 10/21/20 WAREHOUSE TEAM LEADER ROVING MARKER Specialist [address] [place] [address] Dealer Analyst Dietitian, Registered 05/25/18 [facility] MAG[facility] [address] [id number] documented as of this encounter
--- OUTSIDE RECORDS SUMMARY | 2022-03-09 12:43 | XMS_ITS | Encounter Summary ---
:1965 Author Organization [place] Address [facility] [place] [address] Care Team Providers Name Role Phone Annette Alvarezmamadou ALVAREZ INDEPENDENT INSURANCE ADJUSTER Unavailable [phone] Goran Lloyd Primary Care Provider Jocelyn Davidson RD Unavailable Encounter Details Date Type Department Care Team Description 06/12/2018 Orders Only [facility] Annette Alvarez Type 1 rohan betes mellitus with complications (H) (Primary Dx); Clinic [place] KIM Monroe INDEPENDENT INSURANCE ADJUSTER Abdominal bloating [address] [place] [address] [phone] Social History Tobacco Use Types Packs/Day Years Used Date Smoking Tobacco: Never Smokeless Tobacco: Never Alcohol Use Standard Drinks/Week Comments Yes 0 (1 standard drink = 0.6 oz pure alcoho l) rare Sex Assigned at Date Recorded Female 03/04/2020 12:33 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 documented as of this encounter Plan of Treatment Not on filedocumented as of this encounter Visit Diagnoses Diagnosis Type 1 diabetes mellitus with complicati ons (H) - Primary Abdominal bloating Flatulence, eructation, and gas pain documented in this encounter Care Teams Agriculture Research Director Relationship Specialty Start Date End Date Goran Lloyd PCP - General Family Practice 12/29/17 05/21/20 [address] [place] [address] Annette Alvarez, Nurse Practitioner Clinical Nurse 03/22/17 10/21/20 SALT WASHER INDEPENDENT INSURANCE ADJUSTER Specialist [address] [place], [place] [id number] Jocelyn Davidson RD Template Clerk Dietitian, Registered 05/25/18 [facility] MAGG[facility] [place] [address] documented as of this encounter
--- OUTSIDE RECORDS SUMMARY | 2022-03-09 12:43 | XMS_ITS | Encounter Summary ---
:1965 Author Organization [place] Address [address] [place] [address] Care Team Providers Name Role Phone Annette Alvarez APRN SHADER AND TONER Unavailable [phone] Goran Lloyd Primary Care Provider Jocelyn Davidson RD Unavailable Reason for Visit Reason Onset Date Comments Erroneous encounter-disregard 07/28/2018 Encounter Details Date Type Department Care Team Description 07/28/2018 Telephone [facility] Jocelyn Davidson RD Erroneous Clinic [facility] encounter-disregard [address] [place] [address] [address] [place] [address] Social History Tobacco Use Types Packs/Day Years Used Date Smoking Tobacco: Never Smokeless Tobacco: Never Alcohol Use Standard Drinks/Week Comments Yes 0 (1 standard drink = 0.6 oz pure alcoho l) rare Sex Assigned at Date Recorded Female 03/04/2020 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 ROLLING ROOM documented as of this encounter Plan of Treatment Not on filedocumented as of this encounter Visit Diagnoses Diagnosis Type 1 diabetes mellitus with complicati ons (H) Uncontrolled type 1 diabetes mellitus wi th stage 3 chronic kidney disease Type I (juvenile type) diabetes mellitus with renal manifestations, uncontrolled PCOS (polycystic ovarian syndrome) Polycystic ovaries documented in this encounter Care Teams Visual Display Associate Relationship Specialty Start Date End Date Goran Lloyd PCP - General Family Practice 12/29/17 05/21/[address] [address] Annette Alvarez, Nurse Practitioner Clinical Nurse 03/22/17 10/21/20 MULTIMEDIA ARTIST SHADER AND TONER Specialist [address] [place], [place] [id number] Jocelyn Davidson RD Ship Cleaner Dietitian, Registered 05/25/18 [facility] MAGG[facility] [place] [address] documented as of this encounter
--- OUTSIDE RECORDS SUMMARY | 2022-03-09 12:43 | XMS_ITS | Encounter Summary ---
:1965 Author Organization [place] Address [address] [facility] [place] [address] Care Team Providers Name Role Phone Annette Alvarezmamadou ALVAREZ SILO OPERATOR Unavailable [phone] Goran Lloyd Primary Care Provider Reason for Visit Reason Onset Date Comments Forms 01/26/2018 DMV form insulin dep endent Encounter Details Date Type Department Care Team Description 01/26/2018 Telephone [facility] Annette Alvarez Forms (DMV form insulin Clinic [place] KIM Monroe SILO OPERATOR dependent) [address] [place] [address] [phone] Social History Tobacco Use Types Packs/Day Years Used Date Smoking Tobacco: Never Smokeless Tobacco: Never Alcohol Use Standard Drinks/Week Comments Yes 0 (1 standard drink = 0.6 oz pure alcoho l) rare Sex Assigned at Date Recorded Female 03/04/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 (ph#[phone]) Original given to patient. Copy sent to abstracting to be entered into the EMR. Mimi Cyr M.A. documented in this encounter Plan of Treatment Not on filedocumented as of this encounter Visit Diagnoses Not on filedocumented in this encounter Care Teams Vice President Tax Relationship Specialty Start Date End Date Goran Lloyd PCP - General Family Practice 12/29/17 05/21/[address] [address] Annette Alvarez, Nurse Practitioner Clinical Nurse Specialist 10/21/20 MERCHANDISING ASSISTANT SILO OPERATOR [address] [place] [address] documented as of this encounter
--- OUTSIDE RECORDS SUMMARY | 2022-03-09 12:43 | XMS_ITS | Encounter Summary ---
:1965 Author Organization [place] Address [address] [place] [address]. [place] [address] Care Team Providers Name Role Phone Annette Alvarez Mabel DIRECTOR STRATEGY MARKETING DEVELOPMENT SPECIALIST Unavailable Goran Lloyd Primary Care Provider Jocelyn Davidson RD Unavailable Reason for Visit Reason Comments Medication Refill Encounter Details Date Type Department Care Team Description 09/30/2018 Refill [facility] Annette Alvarez, Medication Refill [place] DIRECTOR STRATEGY MARKETING DEVELOPMENT SPECIALIST [address] [phone] [place] [address] (Wo rk) Social History Tobacco Use Types Packs/Day Years Used Date Smoking Tobacco: Never Smokeless Tobacco: Never Alcohol Use Standard Drinks/Week Comments Yes 0 (1 standard drink = 0.6 oz pure alcoho l) rare Sex Assigned at Date Recorded Female 03/04/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
--- OUTSIDE RECORDS SUMMARY | 2022-03-09 12:43 | XMS_ITS | Encounter Summary ---
:1965 Author Organization [place] Address [address] [facility] [address] Care Team Providers Name Role Phone Annette Alvarezmamadou ALVAREZ ELECTRICIAN MAINTENANCE Unavailable [phone] Goran Lloyd Primary Care Provider Jocelyn Davidson RD Unavailable Reason for Visit Reason Onset Date Comments Forms 06/27/2018 [facility] t-slim reques t Encounter Details Date Type Department Care Team Description 06/27/2018 Telephone [facility] Annette Alvarez Forms ([employer] [facility] [employer] [facility] t-slim Clinic [place] KIM Monroe ELECTRICIAN MAINTENANCE request) [address] [address] [phone] Social History Tobacco Use Types Packs/Day Years Used Date Smoking Tobacco: Never Smokeless Tobacco: Never Alcohol Use Standard Drinks/Week Comments Yes 0 (1 standard drink = 0.6 oz pure alcoho l) rare Sex Assigned at Date Recorded Female 03/04/2020 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 Patient notified via MyChart. Mimi Cyr CMA on 06/29/2018 at 11:10AM Telephone Encounter - Annette Avlarez APRN CNP - 06/28/2018 1:34 PM CDT Form completed and signed. Annette Alvarez NP Endocrinology Telephone Encounter - Mimi Cyr CMA - 06/27/2018 10:04 AM CDT Received Statement of Medical Necessity and Prescription Order form from [facility] for a T-slim insulinpump. Dx: E10.65 [facility] Diabetes Care Team ph# [phone] opt.2 . Fax completed form and recent diabetic chart notes that state patient is actively using or has been recommended the use of an insulin pump and completed a diabetes education program (REQUIRED) to #[phone]. Form on Annette Alvarez's desk. Mimi Cyr M.A. documented in this encounter Plan of Treatment Not on filedocumented as of this encounter Visit Diagnoses Not on filedocumented in this encounter Care Teams Contract Manager Relationship Specialty Start Date End Date Goran Lloyd PCP - General Family Practice 12/29/17 05/21/20 [facility] [address] [place] [address] Annette Alvarez, Nurse Practitioner Clinical Nurse 03/22/17 10/21/20 FIRE TECHNICIAN ELECTRICIAN MAINTENANCE Specialist [address] [place] [address] Reagent Tender Helper Dietitian, Registered 05/25/18 [facility] MAGGIE [address] [place] [address] [place] [address] documented as of this encounter
--- OUTSIDE RECORDS SUMMARY | 2022-03-09 12:43 | XMS_ITS | Encounter Summary ---
:1965 Author Organization [place] Address [address] [place] [address]. [place] [address] Care Team Providers Name Role Phone Annette Alvarezmamadou ALVAREZ CUSTOMS INSPECTOR Unavailable [phone] Goran Lloyd Primary Care Provider Reason for Visit Reason Onset Date Comments Medication Refill 03/25/2018 [facility] 1 MG kit Encounter Details Date Type Department Care Team Description 03/24/2018 Refill [facility] AlvarezAnnette, Medication Refill [place] SPLUNK CONSULTANT CUSTOMS INSPECTOR ([facility] 1 MG [address] [facility] [address] [facility] kit) [place] [address] [phone] (Wo rk) Social History Tobacco Use Types Packs/Day Years Used Date Smoking Tobacco: Never Smokeless Tobacco: Never Alcohol Use Standard Drinks/Week Comments Yes 0 (1 standard drink = 0.6 oz pure alcoho l) rare Sex Assigned at Date Recorded Female 03/04/2020 12:33 PM LICENSED ACUPUNCTURIST documented as of this encounter Miscellaneous Notes Telephone Encounter - Pam Boudreaux RN - 03/27/2018 3:55 PM CST Prescription approved per [facility] Refill Protocol Pam Boudreaux RN BS NSED ACUPUNCTURIST Telephone Encounter - Lena Mcmahon - 03/25/2018 [...] 90 days) Mar 30, 2018 1:00 PM LICENSED ACUPUNCTURIST Return Visit with Annette Alvarez APRN CNP [facility] [address] [facility] [address] NSED ACUPUNCTURIST documented in this encounter Plan of Treatment [...] thyroid documented in this encounter Care Teams Accounting/Finance Tutor Relationship Specialty Start Date End Date Goran Lloyd PCP - General Family Practice 12/29/17 05/21/20 [facility] [address] [place] [address] Annette Alvarez, Nurse Practitioner Clinical Nurse Specialist 10/21/20 KIM RODRIGUEZ [address] [place] [address] documented as of this encounter
--- OUTSIDE RECORDS SUMMARY | 2022-03-09 12:43 | XMS_ITS | Encounter Summary ---
:1965 Author Organization [place] Address [address] [place] [address]. 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
--- OUTSIDE RECORDS SUMMARY | 2022-03-09 12:43 | XMS_ITS | Encounter Summary ---
:1965 Author Organization [place] Address [address] [facility] [place] [address] Care Team Providers Name Role Phone Annette Alvarez APRN FLIGHT RADIO OFFICER Unavailable [phone] Goran Lloyd Primary Care Provider Jocelyn Davidson RD Unavailable Reason for Visit Reason Onset Date Comments Medication Refill 12/16/2018 [facility] 100 UNI T/ML soln Encounter Details Date Type Department Care Team Description 12/16/2018 Refill [facility] Annette Alvarez, Medication Refill [place] ALVAREZ FLIGHT RADIO OFFICER (NOVOLOG VIAL [address] [place] [address] [address]/ML soln) [place], [place] [address] [address] [place] [address] [phone] Social History Tobacco Use Types Packs/Day Years Used Date Smoking Tobacco: Never Smokeless Tobacco: Never Alcohol Use Standard Drinks/Week Comments Yes 0 (1 standard drink = 0.6 oz pure alcoho l) rare Sex Assigned at Date Recorded Female 03/04/2020 12:33 PM PRODUCT DEVELOPMENT ECOLOGIST documented as of this encounter Miscellaneous Notes [...] ovaries documented in this encounter Care Teams Batch Mixer Operator Relationship Specialty Start Date End Date Goran Lloyd PCP - General Family Practice 12/29/17 05/21/[address] [address] Annette Alvarez, Nurse Practitioner Clinical Nurse 03/22/17 10/21/20 CERTIFIED NURSE OPERATING ROOM FLIGHT RADIO OFFICER Specialist [address] [place], [place] [phone] Jocelyn Davidson RD Faculty Research Physician Dietitian, Registered 05/25/18 [facility] [place] [address] documented as of this encounter
--- OUTSIDE RECORDS SUMMARY | 2022-03-09 12:43 | XMS_ITS | Encounter Summary ---
:1965 Author Organization [place] Address [address] [facility] [place] [address] Care Team Providers Name Role Phone Annette Alvarez APRN MUD MIXER OPERATOR Unavailable [phone] Goran Lloyd Primary Care Provider Deidre Kirkland RD Unavailable Reason for Visit Reason Onset Date Comments Diabetes Education 09/01/2018 Encounter Details Date Type Department Care Team Description 09/01/2018 Telephone [facility] Deidre Kirkland RD Diabetes Education [facility] - [address] [phone] Social History Tobacco Use Types Packs/Day Years Used Date Smoking Tobacco: Never Smokeless Tobacco: Never Alcohol Use Standard Drinks/Week Comments Yes 0 (1 standard drink = 0.6 oz pure alcoho l) rare Sex Assigned at Date Recorded Female 03/04/2020 12:33 PM 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 Sending rx for insulin syringes to [facility] pharmacy. Pt planning to upload her pump in next 1-2 weeks as requested by CDE. Deidre Kirkland RD, CDE Diabetes Traveling Secretary Telephone Encounter - Deidre Kirkland RD - 09/01/2018 1:44 PM CDT Noted a missed call from patient (per caller ID). Attempted to call patient back- no answer- left message encouraging her to send a Synapset message. Otherwise, will attempt to reach once more before end of day. Deidre Kirkland RD, JENNE Diabetes Traveling Secretary Addendum Note - Deidre Kirkland RD - 09/01/2018 1:44 PM CDT Addended by: DEIDRE KIRKLAND on: 09/01/2018 04:05 PM Modules accepted: Orders documented in this encounter Plan of Treatment Not on filedocumented as of this encounter Visit Diagnoses Diagnosis Type 1 diabetes mellitus with complicati ons (H) - Primary documented in this encounter Care Teams Field Tax Auditor Relationship Specialty Start Date End Date Goran Lloyd PCP - General Family Practice 12/29/17 05/21/20 [facility] [address] [place] [address] Annette Alvarez, Nurse Practitioner Clinical Nurse 03/22/17 10/21/20 DIANETIC COUNSELOR MUD MIXER OPERATOR Specialist [address] [place], [place] [phone] Deidre Kirkland RD Rubber Goods Finisher Dietitian, Registered 05/25/18 [facility] [address] [address] documented as of this encounter
--- OUTSIDE RECORDS SUMMARY | 2022-03-09 12:43 | XMS_ITS | Encounter Summary ---
:1965 Author Organization [place] Address [address] [facility] [place] [address] Care Team Providers Name Role Phone Lashae Alvarez KIM RODRIGUEZ Unavailable [phone] Goran Lloyd Primary Care Provider Reason for Visit Reason Comments Diabetes discuss Hypoglycemia event 2 017 and DMV letter Encounter Details Date Type Department Care Team Description 01/26/2018 Office Visit [facility] Lashae Alvarez Type 1 rohan radha mellitus with complications (H) (Primary Dx); Clinic [place] KIM Monroe CNP Acquired hypothyroidism; [address] [place] [id number] [place] [address] 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 [address] [phone] Social History Tobacco Use Types Packs/Day Years Used Date Smoking Tobacco: Never Smokeless Tobacco: Never Alcohol Use Standard Drinks/Week Comments Yes 0 (1 standard drink = 0.6 oz pure alcoho l) rare Sex Assigned at Date Recorded Female 03/04/2020 12:33 PM PACKAGE DELIVERY ROOM SERVICE RUNNER documented as of this encounter Last [...] have any questions. 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 Prevention: Flu Shot- Pneumovax- recommended Opthalmology-yes [...] in March 2018. Lashae Alvarez NP Endocrinology [facility] CC: documented in this encounter Miscellaneous Notes Addendum Note - Lashae Alvarez APRN CNP - 01/30/2018 6:08 PM PACKAGE DELIVERY ROOM SERVICE RUNNER Addended by: LASHAE ALVAREZ on: 01/30/2018 06:08 PM Modules accepted: Orders AGE DELIVERY ROOM SERVICE RUNNER documented in this encounter Plan of [...] T4 Free 1.12 0.76 - 1.46 01/26/2018 [facility] ng/dL 5:16 PM CDT [facility] Specimen Anatomical Collection Method Collection Time Receive d Time (Source) Location / / Volume Laterality Blood specimen 01/26/2018 12:33 8 (specimen) PM CDT 12:34 PM CDT Lashae Alvarez APRN, CNP LAB - BLOOD ORDERABLES Performing Organization Address City/[facility]/ZIP Code Phon e Number [facility] [address] [place] [id number] (ABNORMAL) TSH (01/26/2018 12:33 PM CDT) P athologist Signature TSH 0.09 (L) 0.40 - 01/26/2018 [facility] 4.00 mU/L 5:16 PM CDT [facility] Specimen Anatomical Collection Method Collection Time Receive d Time (Source) Location / / Volume Laterality Blood specimen 01/26/2018 12:33 8 (specimen) PM CDT 12:34 PM CDT Lashea Alvarez APRN, CNP LAB - BLOOD ORDERABLES Performing Organization Address City/[facility]/ZIP Code Phon e Number [facility] [address] [place] [address] (ABNORMAL) Basic metabolic panel (01/26/2018 12:33 PM CDT) Analysis Performed At Patho logist Time Signature Sodium 141 133 - 144 01/26/2018 [place] mmol/L 5:08 PM CDT CLINICS [facility] Potassium 4.5 3.4 - 5.3 01/26/2018 [place] mmol/L 5:08 PM CDT [facility] Chloride 107 94 - 109 01/26/2018 [place] mmol/L 5:08 PM [facility] Carbon Dioxide 26 20 - 32 01/26/2018 [place] mmol/L 5:08 PM [facility] Anion Gap 8 3 - 14 01/26/2018 [place] mmol/L 5:08 PM [facility] Glucose 140 (H) 70 - 99 01/26/2018 [place] mg/dL 5:08 PM [facility] Comment: Non Fasting Urea Nitrogen 19 7 - 30 mg/dL 01/26/2018 5:08 PM [facility] Creatinine 1.47 (H) 0.52 - 1.04 01/26/2018 5:[address] [facility] mg/dL [facility] GFR Estimate 37 (L) >60 mL/min/1.7m2 01/26/2018 5:08 PM F [facility] Comment: Non GFR Calc GFR Estimate If 45 (L) >60 mL/min/1.7m2 01/26/2018 5:[address] [facility] Black [facility] Comment: GFR Calc Calcium 9.5 8.5 - 10.1 mg/dL 01/26/2018 5:[address] [facility] Specimen Anatomical Collection Method Collection Time Receive d Time (Source) Location / / Volume Laterality Blood specimen 01/26/2018 12:33 8 (specimen) PM CDT 12:34 PM CDT Lashae Alvarez APRN COLOR PASTE MIXING SUPERVISOR LAB - BLOOD ORDERABLES Performing Organization Address City/State/ZIP Code Phon e Number 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
--- OUTSIDE RECORDS SUMMARY | 2022-03-09 12:43 | XMS_ITS | Encounter Summary ---
:1965 Author Organization [place] Address [address] [place] [address]. [place] [address] Care Team Providers Name Role Phone Annette Alvarez APRN TOLL GATE KEEPER Unavailable Goran Lloyd Primary Care Provider Jocelyn Davidson RD Unavailable Encounter Details Date Type Department Care Team Description 07/19/2018 Travel Social History Tobacco Use Types Packs/Day Years Used Date Smoking Tobacco: Never Smokeless Tobacco: Never Alcohol Use Standard Drinks/Week Comments Yes 0 (1 standard drink = 0.6 oz pure alcoho l) rare Sex Assigned at Date Recorded Female 03/04/2020 12:33 PM BURLESQUE DANCER documented as of this encounter Plan of Treatment Not on filedocumented as of this encounter Visit Diagnoses Not on filedocumented in this encounter Care Teams Cyber Instructor Relationship Specialty Start Date End Date Goran Lloyd PCP - General Family Practice 12/29/17 05/21/20 [facility] MEDICAL [address] [place] [address] Annette Alvarez, Nurse Practitioner Clinical Nurse 03/22/17 10/21/20 [facility] TOLL GATE KEEPER Specialist [address] [place], [place] [id number] Jocelyn Davidson RD Oven Press Tender Dietitian, Registered 05/25/[address] [place] [place] [address] documented as of this encounter
--- OUTSIDE RECORDS SUMMARY | 2022-03-09 12:43 | XMS_ITS | Encounter Summary ---
:1965 Author Organization [place] Address [address] [facility] [place] [address] Care Team Providers Name Role Phone Annette Alvarez APRN CLINICAL LAB CLERK Unavailable [phone] Goran Lloyd Primary Care Provider Jocelyn Davidson RD Unavailable Reason for Visit Reason Comments Diabetes Education Encounter Details Date Type Department Care Team Description 07/28/2018 [facility] Jocelyn Davidson, Diabet es Education Health/Nurse [place] [address] [facility] [place] [address] [place] [phone] [place] [address] Social History Tobacco Use Types Packs/Day Years Used Date Smoking Tobacco: Never Smokeless Tobacco: Never Alcohol Use Standard Drinks/Week Comments Yes 0 (1 standard drink = 0.6 oz pure alcoho l) rare Sex Assigned at Date Recorded Female 03/04/2020 12:33 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 Diabetes Support Resources: T:Connect Berggi Dexcom Clarity Follow up: Call ([phone]), e-mail ( ), or send Moblyt message to educator with blood sugar readings in 1 week. Please schedule a follow up sometime soon after your knee surgery. Bring blood glucose meter and logbook with you to all doctor and follow-up appointments. Jocelyn Davidson RD, LD, CDE Diabetes Administrative Program Specialist [place] [facility] for the [facility]: For Your Diabetes or Nutrition Education Appointments Call: [phone] For Diabetes or Nutrition Related Questions Call or Email: [phone] If you need a medication refill please [...] No Other concerns:: None Cultural Influences/Ethnic Background: [place] Patient seen today for Insulin Pump CGM [...] Healthy Eating Healthy Eating Assessed Today: Yes Cultural/zoroastrianism diet restrictions?: No Patient on a regular [...] upcoming knee surgery. Diabetes Support Resources: T:Connect Berggi Dexcom Clarity Time Spent: 60 minutes Encounter [...] Primary documented in this encounter Care Teams Emergency Service Worker Relationship Specialty Start Date End Date Goran Lloyd PCP - General Family Practice 12/29/17 05/21/[address] [address] Annette Alvarez, Nurse Practitioner Clinical Nurse 03/22/17 10/21/20 CUSTOMER ACCOUNTS ADVISOR CLINICAL LAB CLERK Specialist [address] [place] [address] Instructional Material Director Dietitian, Registered 05/25/18 [place]ET [place] [address] [place] [address] SHARAN CARSON [address] documented as of this encounter
--- OUTSIDE RECORDS SUMMARY | 2022-03-09 12:43 | XMS_ITS | Encounter Summary ---
:1965 Author Organization [place] Address [address] [place] [address]. [place] [address] Care Team Providers Name Role Phone Annette Alvarez APRN SKY LINE YARDER Unavailable Goran Lloyd Primary Care Provider Jocelyn Davidson RD Unavailable Encounter Details Date Type Department Care Team Description 05/25/2018 Travel Social History Tobacco Use Types Packs/Day Years Used Date Smoking Tobacco: Never Smokeless Tobacco: Never Alcohol Use Standard Drinks/Week Comments Yes 0 (1 standard drink = 0.6 oz pure alcoho l) rare Sex Assigned at Date Recorded Female 03/04/2020 12:33 PM CHECK CLERK documented as of this encounter Plan of Treatment Not on filedocumented as of this encounter Visit Diagnoses Not on filedocumented in this encounter Care Teams Stock Manager Relationship Specialty Start Date End Date Goran Lloyd PCP - General Family Practice 12/29/17 05/21/20 [facility] MEDICAL [address] [place] [address] Annette Alvarez, Nurse Practitioner Clinical Nurse 03/22/17 10/21/20 GROCERY CLERK CHECKING SKY LINE YARDER Specialist [address] [place], [place] [id number] Jocelyn Davidson RD Analytical Chemist Dietitian, Registered 05/25/[address] [place] [address] documented as of this encounter
--- OUTSIDE RECORDS SUMMARY | 2022-03-09 12:43 | XMS_ITS | Encounter Summary ---
:1965 Author Organization [place] Address [address] [facility] [place] [address] Care Team Providers Name Role Phone Lashae Alvarez APRN, CNP Unavailable [phone] Goran Lloyd Primary Care Provider Jocelyn Davidson RD Unavailable Reason for Visit Reason Comments Diabetes Thyroid Problem Encounter Details Date Type Department Care Team Description 04/16/2019 Office Visit [facility] Lashae Alvarez Uncontrolshilpa ed type 1 diabetes with renal manifestation (H) (Primary Dx); Clinic [place] KIM Monroe CNP Type 1 diabetes mellitus with complicati ons (H); [address] [facility] [id number] [place] [address] Uncontrolled type 1 diabetes mellitus wi th stage 3 chronic kidney disease (H); [place], [place] PCOS (p olycystic ovarian syndrome); [id number] Flatulence, eructation, and gas pain; [phone] Hypothyroidism due to acquired atrophy of thyroid; (Work) Abnormal weight gain Social History Tobacco Use Types Packs/Day Years Used Date Smoking Tobacco: Never Smokeless Tobacco: Never Alcohol Use Standard Drinks/Week Comments Yes 0 (1 standard drink = 0.6 oz pure alcoho l) rare Sex Assigned at Date Recorded Female 03/04/2020 12:33 PM 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 We appreciate your understanding. 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 The patient indicates understanding of the above issues and agrees withthe plan set forth. ??Total face to face??time was 25??minutes. Follow-up: 3 months Lashae Alvarez NP Endocrinology [facility] CC: TUDE CHAMBER TECHNICIAN documented in this encounter Miscellaneous Notes Result Encounter Note - Lashae Alvarez APRN CNP - 04/16/2019 11:30 AM ALTITUDE CHAMBER TECHNICIAN Marnie, Your thyroid labs are in normal [...] you have questions. Lashae Alvarez NP Endocrinology TUDE CHAMBER TECHNICIAN Addendum Note - Lashae Alvarez APRN CNP - 04/16/2019 11:30 AM ALTITUDE CHAMBER TECHNICIAN Addended by: LASHAE ALVAREZ on: 04/18/2019 06:22 AM Modules accepted: Orders TUDE CHAMBER TECHNICIAN documented in this encounter Plan of Treatment Not on filedocumented as of this encounter Procedures Procedure Name Priority Date/Time Associated Diagnosis Comme nts BASIC METABOLIC PANEL Routine 04/16/2019 11:27 Type 1 diabetes Results for this AM ALTITUDE CHAMBER TECHNICIAN mellitus with procedure are in complications (H) the result s section. TSH WITH FREE T4 Routine 04/16/2019 11:26 Uncontrolled type 1 Results for this REFLEX AM ALTITUDE CHAMBER TECHNICIAN diabetes with renal procedur e are in manifestation (H) the result s section. ALBUMIN RANDOM URINE Routine 04/16/2019 11:26 Uncontrolled typ e 1 Results for this QUANTITATIVE AM ALTITUDE CHAMBER TECHNICIAN diabetes with renal procedur e are in manifestation (H) the result s section. HEMOGLOBIN A1C Routine 04/16/2019 11:26 Uncontrolled type 1 Re sults for this AM ALTITUDE CHAMBER TECHNICIAN diabetes with renal procedur e are in manifestation (H) the result s section. documented in this encounter Results (ABNORMAL) Renal panel (Alb, BUN, Ca, Cl, CO2, Creat, Gluc, Phos, K, Na) (08/16/2019 5:57 PM CDT) Analysis Performed At Patho logist Time Signature Sodium 136 133 - 144 08/16/2019 [facility] mmol/L 6:32 PM [facility] Potassium 4.6 3.4 - 5.3 08/16/2019 [facility] mmol/L 6:32 PM [facility] Chloride 107 94 - 109 08/16/2019 [facility] mmol/L 6:32 PM [facility] Carbon Dioxide 24 20 - 32 08/16/2019 [facility] mmol/L 6:39 PM [facility] Anion Gap 5 3 - 14 08/16/2019 [facility]/L 6:39 PM [facility] Glucose 166 (H) 70 - 99 08/16/2019 [facility] mg/dL 6:39 PM [facility] Urea Nitrogen 21 7 - 30 08/16/2019 [facility] mg/dL 6:39 PM [facility] Creatinine 1.41 (H) 0.52 - 08/16/2019 [facility] 1.04 mg/dL 6:39 PM [facility] GFR Estimate 42 (L) >60 08/16/2019 [facility] mL/min/{1. 6:39 PM [facility] 73_m2} [facility]OSPITAL Comment: Non GFR Calc Starting 03/14/2018, serum creatinine ba sed estimated GFR (eGFR) will be calculated using the Chronic Kidney Dise [facility] Epidemiology Collaboration (CKD-EPI) equation. GFR Estimate If 49 (L) >60 mL/min/{1.73_m2} 08/16/2019 6: 39 PM [facility] Comment: GFR Calc Starting 03/14/2018, serum creatinine ba sed estimated GFR (eGFR) will be calculated using the Chronic Kidney Dise [facility] Epidemiology Collaboration (CKD-EPI) equation. Calcium 9.0 8.5 - 10.1 mg/dL 08/16/2019 6:39 PM CDT [facility] Phosphorus 3.4 2.5 - 4.5 mg/dL 08/16/2019 6:39 PM CDT [facility] Albumin 3.9 3.4 - 5.0 g/dL 08/16/2019 6:39 PM CDT [facility] Specimen Anatomical Collection Method Collection Time Receive d Time (Source) Location / / Volume Laterality Blood specimen 08/16/2019 5:57 PM 020 5:58 (specimen) CDT PM CDT Lashae Alvarez APRN, CNP LAB - BLOOD ORDERABLES Performing Organization Address City/[facility]/ZIP [facility] Phon e Number M [facility] [address] [place] [address] [facility] [address] [place], [place] [address], [facility] [phone] [address], [facility] Cortisol (08/16/2019 5:57 PM CDT) athologist Signature Cortisol Serum 14.2 4 - 22 08/16/2019 [facility] ug/dL 10:27 PM CDT [facility] Comment: 8 AM Cortisol Reference Range = 4-22 ug/ dL 4 PM Cortisol Reference Range = 3-17 ug/ dL Specimen Anatomical Collection Method Collection Time Receive d Time (Source) Location / / Volume Laterality Blood specimen 08/16/2019 5:57 PM 020 5:58 (specimen) CDT PM CDT Lashae Alvarez APRN, CNP LAB - BLOOD ORDERABLES Performing Organization Address City/State/ZIP Code Phon e Number [facility] [address] [place] [address] [facility] (ABNORMAL) Basic metabolic panel (04/16/2019 11:27 AM ALTITUDE CHAMBER TECHNICIAN) [facility] Method Time Signature Sodium 137 133 - 144 04/17/2019 [facility] mmol/L 7:36 AM [facility] Potassium 4.4 3.4 - 5.3 04/17/2019 [facility] mmol/L 7:36 AM [facility] Chloride 106 94 - 109 04/17/2019 [facility] mmol/L 7:36 AM [facility] Carbon Dioxide 27 20 - 32 04/17/2019 [facility] mmol/L 7:41 AM [facility] Anion Gap 4 3 - 14 04/17/2019 [facility] mmol/L 7:41 AM [facility] Glucose 219 (H) 70 - 99 04/17/2019 [place] mg/dL 7:41 AM [facility] Urea Nitrogen 31 (H) 7 - 30 04/17/2019 [place] mg/dL 7:41 AM [facility] Creatinine 1.64 (H) 0.52 - 04/17/2019 [facility] 1.04 7:41 AM [facility] mg/dL [facility] GFR Estimate 35 (L) >60 04/17/2019 [place] mL/min/{1 7:41 AM [facility] .73_m2} [facility] Comment: Non GFR Calc Starting 03/14/2018, serum creatinine ba sed estimated GFR (eGFR) will be calculated using the Chronic Kidney Dise [facility] Epidemiology Collaboration (CKD-EPI) equation. GFR Estimate If 41 (L) >60 mL/min/{1.73_m2} 04/17/2019 7:41 AM [facility] Black [facility] Comment: GFR Calc Starting 03/14/2018, serum creatinine ba sed estimated GFR (eGFR) will be calculated using the Chronic Kidney Dise [facility] Epidemiology Collaboration (CKD-EPI) equation. Calcium 10.3 (H) 8.5 - 10.1 mg/dL 04/17/2019 7:41 AM [facility] Specimen Anatomical Collection Method Collection Time Receive d Time (Source) Location / / Volume Laterality Blood specimen 04/16/2019 11:27 0 1:14 (specimen) AM ALTITUDE CHAMBER TECHNICIAN PM ALTITUDE CHAMBER TECHNICIAN Lashae Alvarez APRN FUNERAL GREETER LAB - BLOOD ORDERABLES Performing Organization Address City/[facility]/ZIP Code Phon e Number [facility] [address], [place] [address] TSH with free T4 reflex (04/16/2019 11:26 AM ALTITUDE CHAMBER TECHNICIAN) athologist Signature TSH 1.18 0.40 - 4.00 04/17/2019 [facility] mU/L 8:25 AM [facility] Specimen Anatomical Collection Method Collection Time Receive d Time (Source) Location / / Volume Laterality Blood specimen 04/16/2019 11:26 0 (specimen) AM ALTITUDE CHAMBER TECHNICIAN 11:27 AM ALTITUDE CHAMBER TECHNICIAN Lashae Alvarez APRN FUNERAL GREETER LAB - BLOOD ORDERABLES Performing Organization Address City/[facility]/ZIP Code Phon e Number [facility] [address] [place] [address] Albumin Random Urine Quantitative with Creat Ratio (04/16/2019 11:26 AM ALTITUDE CHAMBER TECHNICIAN) athologist Signature Creatinine 121 mg/dL 04/17/2019 [place] Urine 7:03 AM [facility] Albumin Urine 10 mg/L 04/17/2019 [place] mg/L 7:14 AM [facility] Albumin Urine 7.86 0 - 25 04/17/2019 [place] [place] mg/g Cr mg/g Cr 7:14 AM [facility] Specimen Anatomical Collection Method Collection Time Receive d Time (Source) Location / / Volume Laterality Urine specimen 04/16/2019 11:26 0 (specimen) AM ALTITUDE CHAMBER TECHNICIAN 11:27 AM ALTITUDE CHAMBER TECHNICIAN Lashae Alvarez APRN FUNERAL GREETER LAB - URINE ORDERABLES Performing Organization Address City/[facility]/ZIP Code Phon e Number [facility] [address] [place] [phone] (ABNORMAL) Hemoglobin A1c (04/16/2019 11:26 AM ALTITUDE CHAMBER TECHNICIAN) athologist Signature Hemoglobin A1C 7.4 (H) 0 - 5.6 % 04/16/2019 [place] [place] 11:42 AM ALTITUDE CHAMBER TECHNICIAN [facility] Comment: Normal <5.7% Prediabetes 5.7-6.4% ??Diab etes 6.5% or higher - adopted from ADA consensus guidelines. Specimen Anatomical Collection Method Collection Time Receive d Time (Source) Location / / Volume Laterality Blood specimen 04/16/2019 11:26 0 (specimen) AM ALTITUDE CHAMBER TECHNICIAN 11:27 AM ALTITUDE CHAMBER TECHNICIAN Lashae Alvarez CORE CLEANER FUNERAL GREETER LAB - BLOOD ORDERABLES Performing Organization Address City/State/ZIP Code Phon e Number [facility] [address] [place] [address] documented in this encounter Visit Diagnoses Diagnosis [...] gain documented in this encounter Care Teams Ride Assembly Supervisor Relationship Specialty Start Date End Date Goran Lloyd PCP - General Family Practice 12/29/17 05/21/[address] [address] Lashae Alvarez, Nurse Practitioner Clinical Nurse 03/22/17 10/21/20 CORE CLEANER FUNERAL GREETER Specialist [address] [place] [address] Cook Dessert Dietitian, Registered 05/25/18 [facility] [place] [address] documented as of this encounter
--- OUTSIDE RECORDS SUMMARY | 2022-03-09 12:43 | XMS_ITS | Encounter Summary ---
:1965 Author Organization [place] Address [address] [place] [address]. [place] [address] Care Team Providers Name Role Phone Antonio Annette Monroe APRN CAPSULE INSPECTOR Unavailable [phone] Goran Lloyd Primary Care Provider Reason for Visit Reason Onset Date Comments Refill Request 02/08/2018 metFORMIN (GLUCOPHAG E-XR) 500 MG 24 hr tablet (Discontinued) Encounter Details Date Type Department Care Team Description 02/08/2018 Refill [facility] Annette Alvarez, Refill Request [place] BARN BOSS CAPSULE INSPECTOR (metFORMIN [address] [facility] [id number] [place] [address] (GLUCOPHAGE-XR) 500 MG [place], [place] 24 hr t ablet [id number] (Discontinued)) [phone] (Wo rk) Social History Tobacco Use Types Packs/Day Years Used Date Smoking Tobacco: Never Smokeless Tobacco: Never Alcohol Use Standard Drinks/Week Comments Yes 0 (1 standard drink = 0.6 oz pure alcoho l) rare Sex Assigned at Date Recorded Female 03/04/2020 12:33 PM SHOE LASTER documented as of this encounter Miscellaneous Notes Telephone Encounter - Maye Souza RN - 02/09/2018 10:37 AM CST Images from the original note were not included. Refill request for Metformin. This was dc'd 01/31/18 due to her creatinine. See below. Note to pharmacy. Maye Souza RN Biguanide Agents Jluimg84/14 11:23 AM Patient has documented LDL within the past 12 mos. Patient's CR is NOT>1.4 OR Patient's EGFR is NOT<45 within past 12 mos. Quita Castillo RN ?? 01/31/18 5:30 PM Note Clinic Action Needed: No FNA Triage Call Presenting Problem: Marnie returned phone call from VASQUEZ Orozco. Provided note to Marnie per [facility]. Marnie verbalized understanding and had no additional questions at this time. ?? Routed to: VASQUEZ Minaya ?? Quita Castillo RN/FNA ? 01/31/18 5:29 PM Marnie Duvall contacted Quita Castillo RN ? 01/31/18 8:50 AM Pam Boudreaux, VASQUEZ routed this conversation to Cr Triage Pam Boudreaux RN ?? 01/31/18 8:49 AM Note Notes Recorded by Annette Alvarez APRN CAPSULE INSPECTOR on 01/30/2018 at 6:07 PM Please call [...] Boudreaux RN, BS Clinical Nurse Triage. ?? LASTER Telephone Encounter - Leslie Gamble - 02/08/2018 11:22 AM CST Discontinued Per Pharmacy patient has prescription from another pharmacy that are non transferable to [facility] becausethey have or have run out. metFORMIN (GLUCOPHAGE-XR) 500 MG 24 hr tablet (Discontinued) Last Written Prescription Date: 02/04/17-02/04/17 Last Fill Quantity: 90 tablet, # refills: 1 Last Office Visit: 01/26/18 Antonio Future Office visit: Next 5 appointments (look out 90 days) Mar 30, 2018 1:00 PM SHOE LASTER Return Visit with Annette Alvarez APRN CNP [facility] [address] [facility] [address] Routing refill request to provider for review/approval because: Drug not active on patient's medication list LASTER documented in this encounter Plan of Treatment Not on filedocumented as of this encounter Visit Diagnoses Diagnosis Type 1 diabetes mellitus with complicati ons (H) documented in this encounter Care Teams Pitch Gatherer Relationship Specialty Start Date End Date Goran Lloyd PCP - General Family Practice 12/29/17 05/21/20 [facility] [address] [place] [address] Annette Alvarez, Nurse Practitioner Clinical Nurse Specialist 10/21/20 KIM RODRIGUEZ [address] [place] [address] documented as of this encounter
--- OUTSIDE RECORDS SUMMARY | 2022-03-09 12:43 | XMS_ITS | Encounter Summary ---
:1965 Author Organization [place] Address [address] [place] [address]. [place] [address] Care Team Providers Name Role Phone Annette Alvarez APRN RUBBER GOODS INSPECTOR TESTER Unavailable [phone] Goran Lloyd Primary Care Provider Reason for Visit Reason Comments Medication Refill NOVOLOG FLEXPEN 100 UNIT/ML soln Encounter Details Date Type Department Care Team Description 05/10/2018 Refill [facility] Anntete Alvarez, Medication Refill [place] DEVELOPMENT 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 RUBBER GOODS INSPECTOR TESTER (NOVOLOG FLEXPEN 100 [address] [facility] [place] [id number] [place] [address] AV UNIT/ML soln) [place] [address] [phone] (Wo rk) Social History Tobacco Use Types Packs/Day Years Used Date Smoking Tobacco: Never Smokeless Tobacco: Never Alcohol Use Standard Drinks/Week Comments Yes 0 (1 standard drink = 0.6 oz pure alcoho l) rare Sex Assigned at Date Recorded Female 03/04/2020 12:33 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 Need to add max total daily dose. .kf GE MILL OPERATOR Telephone Encounter - Annette Alvarez APRN CNP - 05/12/2018 1:46 PM SLUDGE MILL OPERATOR Please call and have her schedule a follow up visit. Annette Alvarez NP Endocrinology GE MILL OPERATOR Telephone Encounter - Maye Souza RN - 05/12/2018 9:37 AM CST Images from the original note were not included. Failing below. No upcoming appt. No showed 04/19/18 appt, cancelled 03/30/18 appt. Frequently no shows or cancels. No show rate is 56%. Sent to provider. Please advise and route back [facility] Maye Souza RN Short Acting Insulin Protocol Failed05/11 5:14 PM LDL on file in past 12 months HgbA1C in past 3 or 6 months GE MILL OPERATOR Telephone Encounter - GambleLeslie - 05/11/2018 5:13 [...] & Orders section of the refill encounter. GE MILL OPERATOR documented in this encounter Plan of Treatment Not on filedocumented as of this encounter Visit Diagnoses Diagnosis Type 1 diabetes mellitus with complicati ons (H) Uncontrolled type 1 diabetes mellitus wi th stage 3 chronic kidney disease Type I (juvenile type) diabetes mellitus with renal manifestations, uncontrolled PCOS (polycystic ovarian syndrome) Polycystic ovaries documented in this encounter Care Teams Boat Joiner Helper Relationship Specialty Start Date End Date Goran Lloyd PCP - General Family Practice 12/29/17 05/21/20 [facility] MEDICAL [address] [place] [address] Annette Alvarez, Nurse Practitioner Clinical Nurse Specialist 10/21/20 DEVELOPMENT 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 RUBBER GOODS INSPECTOR TESTER [address] [place] [address] documented as of this encounter
--- OUTSIDE RECORDS SUMMARY | 2022-03-09 12:43 | XMS_ITS | Encounter Summary ---
:1965 Author Organization [place] Address [address] [place] [address] Care Team Providers Name Role Phone Annette Alvarez APRN, CNP Unavailable Goran Lloyd Primary Care Provider Jocelyn Davidson RD Unavailable Reason for Visit Reason Onset Date Comments Diabetes Education 07/10/2018 Pump orders Encounter Details Date Type Department Care Team Description 07/10/2018 Telephone [facility] Jocelyn Davidson RD Diabetes Education Clinic [facility] (Pump orders) [address] [place] [address] [address] [place] [address] Social History Tobacco Use Types Packs/Day Years Used Date Smoking Tobacco: Never Smokeless Tobacco: Never Alcohol Use Standard Drinks/Week Comments Yes 0 (1 standard drink = 0.6 oz pure alcoho l) rare Sex Assigned at Date Recorded Female 03/04/2020 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 Jocelyn Davidson RD, CDE Diabetes Dental Assisting Instructor documented in this encounter Plan of Treatment Not on filedocumented as of this encounter Visit Diagnoses Not on filedocumented in this encounter Care Teams Assembler Musical Instruments Relationship Specialty Start Date End Date Goran Lloyd PCP - General Family Practice 12/29/17 05/21/[address] [address] Annette Alvarez, Nurse Practitioner Clinical Nurse 03/22/17 10/21/20 SATELLITE TV TECHNICIAN INSTALLER IRON PILER Specialist [address] [place] [address] Senior Software Developer Dietitian, Registered 05/25/18 [facility] [address] [id number] documented as of this encounter
--- OUTSIDE RECORDS SUMMARY | 2022-03-09 12:43 | XMS_ITS | Encounter Summary ---
:1965 Author Organization [place] Address [address] [facility] [address] Care Team Providers Name Role Phone Annette Alvarez RADAR TESTER SURGICAL ONCOLOGIST Unavailable [phone] Goran Lloyd Primary Care Provider Jocelyn Davidson RD Unavailable Tamar Murphy RADAR TESTER SURGICAL ONCOLOGIST Unavailable Nikita Gamble Primary Care Provider Encounter Details Date Type Department Care Team Description 07/07/2018 Records - [facility] CONVERSION Provider, Paul massey Social History Tobacco Use Types Packs/Day Years Used Date Smoking Tobacco: Never Smokeless Tobacco: Never Alcohol Use Standard Drinks/Week Comments Yes 0 (1 standard drink = 0.6 oz pure alcoho l) rare Sex Assigned at Date Recorded Female 03/04/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 documented as of this encounter Plan of Treatment Not on filedocumented as of this encounter Visit Diagnoses Not on filedocumented in this encounter Additional Health Concerns Infection Onset Date Last Indicated Resolved Time Rule Out COVID-19 02/26/2020 02/26/2020 02/27/2020 4:3 2 PM TRUCK OPERATOR documented as of this encounter Care Teams Blower Mechanic Relationship Specialty Start Date End Date PremaGoran PCP - General Family Practice 12/29/17 05/21/20 [facility] [address] [place] [address] Nikita Gamble PCP - General Family Medicine 05/26/20 [facility] [address] [place] [address] Annette Alvarez, Nurse Practitioner Clinical Nurse 03/22/17 10/21/20 RADAR TESTER SURGICAL ONCOLOGIST Specialist [address] [place], [place] [id number] Jocelyn Davidson RD Interactive Multimedia Designer Dietitian, Registered 05/25/18 [facility] [address] [place] [address] [place] [address] Tamar Murphy APRN Assigned PCP 02/08/20 1 SURGICAL ONCOLOGIST [address] [place] [address] documented as of this encounter
--- OUTSIDE RECORDS SUMMARY | 2022-03-09 12:43 | XMS_ITS | Encounter Summary ---
:1965 Author Organization [place] Address [address] [facility] [place] [address] Care Team Providers Name Role Phone Annette Alvarez APRN DISTRIBUTION FIELD TECHNICIAN Unavailable [phone] Goran Lloyd Primary Care Provider Jocelyn Davidson RD Unavailable Reason for Visit Reason Comments Diabetes Education Encounter Details Date Type Department Care Team Description 10/11/2018 [facility] Yadira Garcia Diabe gail Education Health[place] [address] [facility] [phone] [place], [place] (Work) [address] Social History Tobacco Use Types Packs/Day Years Used Date Smoking Tobacco: Never Smokeless Tobacco: Never Alcohol Use Standard Drinks/Week Comments Yes 0 (1 standard drink = 0.6 oz pure alcoho l) rare Sex Assigned at Date Recorded Female 03/04/2020 12:33 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 documented as of this encounter Progress Notes [...] Getting harder to manage Cultural Influences/Ethnic Background: Gren[place] Pt seen today to set up T:Slim [...] Healthy Eating Healthy Eating Assessed Today: No Cultural/restorationism diet restrictions?: No Meal planning: Avoiding sweets, [...] Insulin Time: 4 hours Using T:Connect: Yes [employer] Sharing Code: [id number] Current Treatments: Diet, Insulin Injections, Insulin Pump [...] Sees dentist every 6 months?: Yes Sees glass tube bender (foot doctor)?: No Healthy Coping Healthy Coping [...] pump report and adjustments to pump settings. Yadiar Garcia RN,CDE Time Spent: 70 minutes Encounter [...] documented in this encounter Care Teams Senior Vice President & General Counsel Relationship Specialty Start Date End Date Goran Lloyd PCP - General Family Practice 12/29/17 05/21/[address] [address] Annette Alvarez, Nurse Practitioner Clinical Nurse 03/22/17 10/21/20 ELECTRONIC CALIBRATION TECHNICIAN DISTRIBUTION FIELD TECHNICIAN Specialist [address] [place], [place] [phone] Jocelyn Davidson RD Molasses Preparer Dietitian, Registered 05/25/18 [facility] MAGGIE [address] [place] [address] SHARAN CARSON [address] documented as of this encounter
--- OUTSIDE RECORDS SUMMARY | 2022-03-09 12:43 | XMS_ITS | Encounter Summary ---
:1965 Author Organization [place] Address [address] [place] [address]. 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 PLANNING documented as of this encounter Plan of Treatment Not on filedocumented as of this encounter Visit Diagnoses Not on filedocumented in this encounter Care Teams Work Study Student Relationship Specialty Start Date End Date Goran Lloyd PCP - General Family Practice 12/29/17 05/21/20 [facility] [address] [place] [address] Annette Alvarez, Nurse Practitioner Clinical Nurse 03/22/17 10/21/20 TUNNEL INSPECTOR LAMP SHADE MAKER Specialist [address] [place], [place] [phone] Jocelyn Davidson RD Help Desk Operator Dietitian, Registered 05/25/[address] [place] [place] [address] documented as of this encounter
--- OUTSIDE RECORDS SUMMARY | 2022-03-09 12:43 | XMS_ITS | Encounter Summary ---
:1965 Author Organization [place] Address [address] [place] [address]. [place] [address] Care Team Providers Name Role Phone Annette Alvarez APRN BRICK CLEANER Unavailable [phone] Goran Lloyd Primary Care Provider Jocelyn Davidson RD Unavailable Reason for Visit Reason Comments Medication Refill Encounter Details Date Type Department Care Team Description 03/22/2019 Refill [facility] Annette Alvarez, Medication Refill [place] ALVAREZ BRICK CLEANER [id number] [place] [address] [phone] Social History Tobacco Use Types Packs/Day Years Used Date Smoking Tobacco: Never Smokeless Tobacco: Never Alcohol Use Standard Drinks/Week Comments Yes 0 (1 standard drink = 0.6 oz pure alcoho l) rare Sex Assigned at Date Recorded Female 03/04/2020 12:33 PM PRINTED CIRCUIT BOARD PANELS DEVELOPER documented as of this encounter Miscellaneous Notes Telephone Encounter - Kate Chau RN - 03/23/2019 5:09 PM PRINTED CIRCUIT BOARD PANELS DEVELOPER Routing refill request to provider for review/approval [...] the refill encounter. Kate Chau RN Flex TED CIRCUIT BOARD PANELS DEVELOPER documented in this encounter Plan of Treatment Not on filedocumented as of this encounter Visit Diagnoses Diagnosis Type 1 diabetes mellitus with complicati ons (H) Uncontrolled type 1 diabetes mellitus wi th stage 3 chronic kidney disease Type I (juvenile type) diabetes mellitus with renal manifestations, uncontrolled PCOS (polycystic ovarian syndrome) Polycystic ovaries documented in this encounter Care Teams Senior Talent Acquisition Specialist Relationship Specialty Start Date End Date Goran Lloyd PCP - General Family Practice 12/29/17 05/21/[address] [address] Annette Alvarez, Nurse Practitioner Clinical Nurse 03/22/17 10/21/20 BOX HINGE AND LOCK ATTACHER BRICK CLEANER Specialist [address] [place], [place] [phone] Jocelyn Davidson RD Cable Weaver Dietitian, Registered 05/25/18 [facility] [place] [address] documented as of this encounter
--- OUTSIDE RECORDS SUMMARY | 2022-03-09 12:43 | XMS_ITS | Encounter Summary ---
:1965 Author Organization [place] Address [address] [facility] [place] [address] Care Team Providers Name Role Phone Annette Alvarez APRN ELECTRICAL TESTS SUPERVISOR Unavailable Goran Lloyd Primary Care Provider Jocelyn Davidson RD Unavailable Reason for Visit Reason Onset Date Comments Diabetes 02/19/2019 High Blood Sugars Encounter Details Date Type Department Care Team Description 02/19/2019 Telephone [facility] Jocelyn Davidson RD Diabetes (High Blood Clinic [facility] Sugars) [address] [place] [id number] [phone] Social History Tobacco Use Types Packs/Day Years Used Date Smoking Tobacco: Never Smokeless Tobacco: Never Alcohol Use Standard Drinks/Week Comments Yes 0 (1 standard drink = 0.6 oz pure alcoho l) rare Sex Assigned at Date Recorded Female 03/04/2020 12:33 PM COMPUTER CUSTOMER SUPPORT SPECIALIST documented as of this encounter Miscellaneous Notes Telephone Encounter - Jocelyn Davidson RD - 02/23/2019 8:25 AM CST See phone encounter 02/21. Jocelyn Davidson RD, CDE Diabetes Bog Worker UTER CUSTOMER SUPPORT SPECIALIST Telephone Encounter - Jaqui Logan RD - [...] Tuesday. Jaqui Logan MS, RD, LD, CDE UTER CUSTOMER SUPPORT SPECIALIST Telephone Encounter - Goran Madera - 02/19/2019 8:46 AM CST Patient having very high numbers that are not registering on meter. As well as multiple Ketones. Hasbeen going on since Tuesday. Please call to discuss. UTER CUSTOMER SUPPORT SPECIALIST documented in this encounter Plan of Treatment Not on filedocumented as of this encounter Visit Diagnoses Not on filedocumented in this encounter Care Teams House Calls Nurse Practitioner Relationship Specialty Start Date End Date Goran Lloyd PCP - General Family Practice 12/29/17 05/21/20 [facility] [address] [place] [address] Annette Alvarez, Nurse Practitioner Clinical Nurse 03/22/17 10/21/20 MANAGER SAS ELECTRICAL TESTS SUPERVISOR Specialist [address] [place] [address] Vice President Integrated Dietitian, Registered 05/25/18 [facility] [place] [address] documented as of this encounter
--- OUTSIDE RECORDS SUMMARY | 2022-03-09 12:43 | XMS_ITS | Encounter Summary ---
:1965 Author Organization [place] Address [address] [facility] [place] [address] Care Team Providers Name Role Phone Annette Alvarez APRN UNDERCOAT SPRAYER Unavailable Goran Lloyd Primary Care Provider Jocelyn Davidson RD Unavailable Reason for Visit Reason Comments Diabetes Education Encounter Details Date Type Department Care Team Description 08/02/2018 [facility] Jocelyn Davidson, Diabet es Education Health/[place] [address] [place] [address] [place] [address] [place] [address] Social History Tobacco Use Types Packs/Day Years Used Date Smoking Tobacco: Never Smokeless Tobacco: Never Alcohol Use Standard Drinks/Week Comments Yes 0 (1 standard drink = 0.6 oz pure alcoho l) rare Sex Assigned at Date Recorded Female 03/04/2020 12:33 PM SENIOR CUSTOMER SERVICE REPRESENTATIVE documented as of this encounter Progress Notes Jocelyn Davidson, RD - 08/02/2018 1:30 PM CDT Images from the original note were not included. Diabetes Self-Management Education & Support SUBJECTIVE/OBJECTIVE Diabetes education in the past 24mo: (P) Yes Diabetes type: (P) Type 1 Disease course: (P) Getting harder to manage Cultural Influences/Ethnic Background: Lebanese Pt seen today to set up T:Slim [...] set changes, tubing fills, etc) Healthy Eating Cultural/congregation diet restrictions?: (P) No Meal planning: (P) [...] hours Using T:Connect: Yes [employer] Sharing Code: [id number] Current Treatments: (P) Diet, Insulin Injections, Insulin [...] dentist every 6 months?: (P) Yes Sees fruit farmer (foot doctor)?: (P) No Healthy Coping Informal [...] knee replacement. Jocelyn Davidson RD, CDE Diabetes Abrasive Grader Helper Time Spent: 60 minutes Encounter Type: Individual [...] Primary documented in this encounter Care Teams Retort Pre Cooker Relationship Specialty Start Date End Date Goran Lloyd PCP - General Family Practice 12/29/17 05/21/20 [facility] [address] [place] [address] Annette Alvarez, Nurse Practitioner Clinical Nurse 03/22/17 10/21/20 PHOSPHORUS PROCESSING SUPERVISOR UNDERCOAT SPRAYER Specialist [address] [place], [place] [phone] Jocelyn Davidson RD Credit Assistant Dietitian, Registered 05/25/18 [facility] [address] [place] [address] [place] CAR[place] [address] documented as of this encounter
--- OUTSIDE RECORDS SUMMARY | 2022-03-09 12:43 | XMS_ITS | Encounter Summary ---
:1965 Author Organization [place] Address [address] [facility] [place] [address] Care Team Providers Name Role Phone Annette Alvarez APRN COMPUTER OPERATIONS ANALYST Unavailable [phone] Goran lLoyd Primary Care Provider Jocelyn Davidson RD Unavailable Reason for Visit Reason Onset Date Comments Forms 05/26/2018 Tandem pump Encounter Details Date Type Department Care Team Description 05/26/[address] [facility] Jocelyn Davidson, RENATA Forms (Tandem pump) [address] [phone] Social History Tobacco Use Types Packs/Day Years Used Date Smoking Tobacco: Never Smokeless Tobacco: Never Alcohol Use Standard Drinks/Week Comments Yes 0 (1 standard drink = 0.6 oz pure alcoho l) rare Sex Assigned at Date Recorded Female 03/04/2020 12:33 PM TAKE DOWN INSPECTOR documented as of this encounter Miscellaneous Notes Telephone Encounter - Jocelyn Davidson, RENATA - 05/26/2018 3:21 PM CST Images from the original note were not included. Patient filled out Tandem AOB after CDE visit 05/25/18. Forms faxed on 05/26/18- follow up e-mail also sent to Barber Corona and Michelle Mary at [facility]. Original forms with Mimi Cyr MA/ Annette Alvarez NP. [employer] message sent to Marnie as fyi. Jocelyn Davidson RD, CDE Diabetes Garbage Truck Dispatcher DOWN INSPECTOR documented in this encounter Plan of Treatment Not on filedocumented as of this encounter Visit Diagnoses Not on filedocumented in this encounter Care Teams Protohistorian Relationship Specialty Start Date End Date Goran Lloyd PCP - General Family Practice 12/29/17 05/21/20 [facility] [address] [place] [address] Annette Alvarez, Nurse Practitioner Clinical Nurse 03/22/17 10/21/20 SAW CLEANER COMPUTER OPERATIONS ANALYST Specialist [address] [place] [address] Convention Services Director Dietitian, Registered 05/25/18 [facility] Kaleigh [place] [facility] [place] [address] documented as of this encounter
--- OUTSIDE RECORDS SUMMARY | 2022-03-09 12:43 | XMS_ITS | Encounter Summary ---
:1965 Author Organization [place] Address [address] [place] [address]. 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
--- OUTSIDE RECORDS SUMMARY | 2022-03-09 12:43 | XMS_ITS | Encounter Summary ---
:1965 Author Organization [place] Address [address] [place] [address]. [place] [address] Care Team Providers Name Role Phone Annette Alvarez APRN OCEANOGRAPHER ASSISTANT Unavailable [phone] Goran Lloyd Primary Care Provider Jocelyn Davidson RD Unavailable Encounter Details Date Type Department Care Team Description 07/28/2018 Travel Social History Tobacco Use Types Packs/Day Years Used Date Smoking Tobacco: Never Smokeless Tobacco: Never Alcohol Use Standard Drinks/Week Comments Yes 0 (1 standard drink = 0.6 oz pure alcoho l) rare Sex Assigned at Date Recorded Female 03/04/2020 12:33 PM CLINICAL DOCUMENTATION CLERK documented as of this encounter Plan of Treatment Not on filedocumented as of this encounter Visit Diagnoses Not on filedocumented in this encounter Care Teams Care Mgr Relationship Specialty Start Date End Date Goran Lloyd PCP - General Family Practice 12/29/17 05/21/20 [facility] [address] [place] [address] Annette Alvarez, Nurse Practitioner Clinical Nurse 03/22/17 10/21/20 UNDERCOLLAR MAKER OCEANOGRAPHER ASSISTANT Specialist [address] [place], [place] [id number] Jocelyn Davidson RD Dredge Engineer Dietitian, Registered 05/25/[address] [place] [address] documented as of this encounter
--- OUTSIDE RECORDS SUMMARY | 2022-03-09 12:43 | XMS_ITS | Encounter Summary ---
:1965 Author Organization [place] Address [address] [facility] [place] [address] Care Team Providers Name Role Phone Annette Alvarez APRN INSURANCE ADMINISTRATOR Unavailable Goran Lloyd Primary Care Provider Jocelyn Davidson RD Unavailable Reason for Visit Reason Comments Diabetes Education Encounter Details Date Type Department Care Team Description 05/25/2018 [facility] Jocelyn Davidson, Diabet es Education Health/[place] [address] [place] [address] [place] [phone] [place], [place] [id number] Social History Tobacco Use Types Packs/Day Years Used Date Smoking Tobacco: Never Smokeless Tobacco: Never Alcohol Use Standard Drinks/Week Comments Yes 0 (1 standard drink = 0.6 oz pure alcoho l) rare Sex Assigned at Date Recorded Female 03/04/2020 12:33 PM CURB ATTENDANT documented as of this encounter Progress Notes Jocelyn Davidson, RD - 05/25/2018 11:30 AM CST Images from the original note were not included. Diabetes Self-Management Education & Support SUBJECTIVE/OBJECTIVE Diabetes education in the past 24mo: Yes Diabetes type: Type 1 Disease course: Getting harder to manage Diabetes management related comments/concerns: getting my A1C to a normal level Cultural Influences/Ethnic Background: [place] Patient seen today for Insulin Pump Pre-Start: [...] prior to insulin pump start. Healthy Eating Cultural/anabaptist diet restrictions?: No Meal planning: Carbohydrate counting [...] IQ pump. Jocelyn Davidson RD, CDE Diabetes Electromedical Equipment Repairer Time Spent: 60 minutes Encounter Type: Individual Any diabetes medication dose changes were made via the CDE Protocol and Collaborative Practice Agreement with the patient's endocrinology provider. A copy of this encounter was shared with the provider. ATTENDANT documented in this encounter Plan of Treatment Not on filedocumented as of this encounter Visit Diagnoses Diagnosis Type 1 diabetes mellitus with complicati ons (H) - Primary documented in this encounter Care Teams Harness Tier Relationship Specialty Start Date End Date Goran Lloyd PCP - General Family Practice 12/29/17 05/21/[address] [address] Annette Alvarez, Nurse Practitioner Clinical Nurse 03/22/17 10/21/20 CHEF SAUCIER INSURANCE ADMINISTRATOR Specialist [address] [place], [place] [id number] Jocelyn Davidson RD Curtain Supervisor Dietitian, Registered 05/25/18 [facility] [place] [address] [place] [address] documented as of this encounter
--- OUTSIDE RECORDS SUMMARY | 2022-03-09 12:43 | XMS_ITS | Encounter Summary ---
:1965 Author Organization [place] Address [address] [facility] [place] [address] Care Team Providers Name Role Phone Annette Alvarez APRN POWER TRANSFORMER REPAIRER Unavailable Goran Lloyd Primary Care Provider Jocelyn Davidson RD Unavailable Reason for Visit Reason Onset Date Comments Patient/info Update 08/01/2018 new pump Encounter Details Date Type Department Care Team Description 08/01/2018 Telephone [facility] Jocelyn Davidson, RENATA Patient/info Update [facility] (new pump) [address] [place] [phone] Social History Tobacco Use Types Packs/Day Years Used Date Smoking Tobacco: Never Smokeless Tobacco: Never Alcohol Use Standard Drinks/Week Comments Yes 0 (1 standard drink = 0.6 oz pure alcoho l) rare Sex Assigned at Date Recorded Female 03/04/2020 12:33 PM LADLE CAR OPERATOR documented as of this encounter Miscellaneous [...] needs her settings. Please advise Ilda Smith Master Glazier documented in this encounter Plan of Treatment Not on filedocumented as of this encounter Visit Diagnoses Not on filedocumented in this encounter Care Teams Pharmacy Services Representative Relationship Specialty Start Date End Date Goran Lloyd PCP - General Family Practice 12/29/17 05/21/[address] [address] Annette Alvarez, Nurse Practitioner Clinical Nurse 03/22/17 10/21/20 HEARING CARE PRACTITIONER POWER TRANSFORMER REPAIRER Specialist [address] [place], [place] [id number] Jocelyn Davidson RD Photography Editor Dietitian, Registered 05/25/18 [facility] [place] [address] documented as of this encounter
--- OUTSIDE RECORDS SUMMARY | 2022-03-09 12:43 | XMS_ITS | Encounter Summary ---
:1965 Author Organization [place] Address [address] [place] [address]. [place] [address] Care Team Providers Name Role Phone Antonio Annette Mabel PRECISION STRUCTURAL METAL FITTER BUNGHOLE BORER Unavailable [phone] Goran Lloyd Primary Care Provider Reason for Visit Reason Comments Medication Refill Encounter Details Date Type Department Care Team Description 01/12/[address] [facility] Annette Alvarez, Medication Refill [place] PRECISION STRUCTURAL METAL FITTER BUNGHOLE BORER [address] [phone] [place] [address] (Wo rk) Social History Tobacco Use Types Packs/Day Years Used Date Smoking Tobacco: Never Smokeless Tobacco: Never Alcohol Use Standard Drinks/Week Comments Yes 0 (1 standard drink = 0.6 oz pure alcoho l) rare Sex Assigned at Date Recorded Female 03/04/2020 12:33 PM SENIOR POWER PLANT OPERATOR documented as of this encounter Miscellaneous [...] (H) documented in this encounter Care Teams Projection Technician Relationship Specialty Start Date End Date Goran Lloyd PCP - General Family Practice 12/29/17 05/21/[address] [address] Annette Alvarez, Nurse Practitioner Clinical Nurse Specialist 10/21/20 PRECISION STRUCTURAL METAL FITTER BUNGHOLE BORER [address] [place] [address] documented as of this encounter
--- OUTSIDE RECORDS SUMMARY | 2022-03-09 12:43 | XMS_ITS | Encounter Summary ---
:1965 Author Organization [place] Address [address] [place] [address]. [place] [address] Care Team Providers Name Role Phone Annette Alvarez APRN PORCELAIN WAXER Unavailable Goran Lloyd Primary Care Provider Jocelyn Davidson RD Unavailable Reason for Visit Reason Onset Date Comments Refill Request 10/16/2018 Levothyroxine refill request Encounter Details Date Type Department Care Team Description 10/16/2018 Refill [facility] Annette Alvarez, Refill Request [place] WINE STEWARD/STEWARDESS PORCELAIN WAXER (Levothyroxine refill [address] [facility] [address] [facility] request) [place] [address] [phone] (Wo rk) Social History Tobacco Use Types Packs/Day Years Used Date Smoking Tobacco: Never Smokeless Tobacco: Never Alcohol Use Standard Drinks/Week Comments Yes 0 (1 standard drink = 0.6 oz pure alcoho l) rare Sex Assigned at Date Recorded Female 03/04/2020 12:33 PM CODING COORDINATOR documented as of this encounter Miscellaneous Notes Telephone Encounter - Ashok Bella RN - 10/17/2018 10:34 AM CDT Left message to call back OR log in to [employer] . Message sent. Was due for follow up and labs with Annette in Apr 2018. Prescription approved per [facility] Refill Protocol x 1. Ashok Bella, RN Telephone Encounter - Ashok Bella RN - 10/17/2018 10:33 AM CDT Telephone Encounter - Savanah Madrid - 10/16/2018 3:44 PM CDT Patient requesting Levothyroxine to [facility]. Savanah Madrid. 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
--- OUTSIDE RECORDS SUMMARY | 2022-03-09 12:43 | XMS_ITS | Encounter Summary ---
:1965 Author Organization [place] Address [address] [place] [address]. [place] [address] Care Team Providers Name Role Phone Annette Alvarez NUTRITION INTERN EDUCATIONAL ADVISOR Unavailable [phone] Goran Lloyd Primary Care Provider Jocelyn Davidson RD Unavailable Encounter Details Date Type Department Care Team Description 06/28/2018 Medical Correspondence [facility] Scan, STATEMENT OF Health Info Mgmt Non-Provider MEDICAL N[facility] TANDEM [address] [place] [address] Social History Tobacco Use Types Packs/Day Years Used Date Smoking Tobacco: Never Smokeless Tobacco: Never Alcohol Use Standard Drinks/Week Comments Yes 0 (1 standard drink = 0.6 oz pure alcoho l) rare Sex Assigned at Date Recorded Female 03/04/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 documented as of this encounter Plan of Treatment Not on filedocumented as of this encounter Visit Diagnoses Not on filedocumented in this encounter Care Teams Mechanical Manager Relationship Specialty Start Date End Date Goran Lloyd PCP - General Family Practice 12/29/17 05/21/20 [facility] [address] [place] [address] Annette Alvarez, Nurse Practitioner Clinical Nurse 03/22/17 10/21/20 NUTRITION INTERN EDUCATIONAL ADVISOR Specialist [address] [place] [address] Gut Puller Dietitian, Registered 05/25/18 [facility] [address] [place] [address] documented as of this encounter
--- OUTSIDE RECORDS SUMMARY | 2022-03-09 12:43 | XMS_ITS | Encounter Summary ---
:1965 Author Organization [place] Address [address] [place] [address]. [place] [address] Care Team Providers Name Role Phone Annette Alvarez KIM RODRIGUEZ Unavailable Goran Lloyd Primary Care Provider Reason for Visit Reason Onset Date Comments Patient Request 03/27/2018 Suspended License Encounter Details Date Type Department Care Team Description 03/27/2018 [facility] Re [facility] KIM Monroe RESIDENTIAL REMODELING SUBCONTRACTOR (Suspended License) [address] [place] [address] [phone] Social History Tobacco Use Types Packs/Day Years Used Date Smoking Tobacco: Never Smokeless Tobacco: Never Alcohol Use Standard Drinks/Week Comments Yes 0 (1 standard drink = 0.6 oz pure alcoho l) rare Sex Assigned at Date Recorded Female 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 Included a copy of the letter for the patient's own files. Left a voicemail stating that the requested letter was mailed to her home address. Mimi Cyr CMA on 03/29/2018 at 1:53 PM ECT PRODUCTION ENGINEER Telephone Encounter - Annette Alvarez APRN CNP - 03/29/2018 1:38 PM PROJECT PRODUCTION ENGINEER Letter completed. Annette Alvarez NP Endocrinology ECT PRODUCTION ENGINEER Telephone Encounter - Mimi Cyr CMA - [...] to drive and was faxed to the [place] [employer] Public Safety: Security Patrol Officer and Vehicle Services. In addition to having the form faxed, patientstates she keeps a copy with her in the car. Has a future appointment scheduled for her routine diabetic follow-up on 04/19/18. Patient would like this letter mailed to her home. She will be bringing the letter with her to court. Please advise. Ok to leave a detailed message on her voicemail at [phone]. Mimi Cyr CMA on 03/29/2018 at 1:22 PM ECT PRODUCTION ENGINEER Telephone Encounter - Ramila Mejia - 03/27/2018 [...] Alvarez or her nurse-please call her at [phone]. ECT PRODUCTION ENGINEER documented in this encounter Plan of Treatment Not on filedocumented as of this encounter Visit Diagnoses Not on filedocumented in this encounter Care Teams Rod Piler Relationship Specialty Start Date End Date Goran Lloyd PCP - General Family Practice 12/29/17 05/21/20 [facility] [address] [place] [address] Annette Alvarez, Nurse Practitioner Clinical Nurse Specialist 10/21/[address] ST[address] DEPARTMENT DISPATCHER RESIDENTIAL REMODELING SUBCONTRACTOR [address] [place] [address] documented as of this encounter
--- OUTSIDE RECORDS SUMMARY | 2022-03-09 12:43 | XMS_ITS | Encounter Summary ---
:1965 Author Organization [place] Address [address] [place] [address]. [place] [address] Care Team Providers Name Role Phone Annette Alvarezmamadou ALVAREZ LOOM TUNER Unavailable [phone] Goran Lloyd Primary Care Provider Reason for Visit Reason Onset Date Comments Nurse Advice Line 01/31/2018 labs Encounter Details Date Type Department Care Team Description 01/31/2018 Telephone [facility] Annette Alvarez Nurse Advi ce Line [facility] KIM Monroe LOOM TUNER (labs) [address] [place] [address] [phone] Social History Tobacco Use Types Packs/Day Years Used Date Smoking Tobacco: Never Smokeless Tobacco: Never Alcohol Use Standard Drinks/Week Comments Yes 0 (1 standard drink = 0.6 oz pure alcoho l) rare Sex Assigned at Date Recorded Female 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 Provided note to Marnie per [facility]. Marnie verbalized understanding and had no additional questions at this time. Routed to: car carder Quita Castillo RN/FNA HT TEST MECHANIC Telephone Encounter - Pam Boudreaux RN - [...] Pam Boudreaux RN, BS Clinical Nurse Triage. HT TEST MECHANIC documented in this encounter Plan of Treatment Not on filedocumented as of this encounter Visit Diagnoses Not on filedocumented in this encounter Care Teams Director Meetings Relationship Specialty Start Date End Date Goran Lloyd PCP - General Family Practice 12/29/17 05/21/20 [facility] [address] [place] [address] Annette Alvarez, Nurse Practitioner Clinical Nurse Specialist 10/21/20 KIM RODRIGUEZ [address] [place] [address] documented as of this encounter
--- OUTSIDE RECORDS SUMMARY | 2022-03-09 12:43 | XMS_ITS | Encounter Summary ---
:1965 Author Organization [place] Address [address] [place] [address]. 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 documented as of this encounter Plan of Treatment Not on filedocumented as of this encounter Visit Diagnoses Not on filedocumented in this encounter Care Teams Electronic Train Control Technician Relationship Specialty Start Date End Date Goran Lloyd PCP - General Family Practice 12/29/17 05/21/20 [facility] [address] [place] [address] Annette Alvarez, Nurse Practitioner Clinical Nurse 03/22/17 10/21/20 SYSTEMS SOFTWARE DEVELOPER MOBILE HOME SERVICER Specialist [address] [place], [place] [phone] Jocelyn Davidson RD Dermatologist Managing Partner Dietitian, Registered 05/25/[address] [address] documented as of this encounter
--- OUTSIDE RECORDS SUMMARY | 2022-03-09 12:43 | XMS_ITS | Encounter Summary ---
:1965 Author Organization [place] Address [address] [facility] [place] [address] Care Team Providers Name Role Phone Annette Alvarez APRN, CNP Unavailable [phone] Goran Lloyd Primary Care Provider Jocelyn Davidson RD Unavailable Reason for Visit Reason Onset Date Comments Refill Request 02/11/2019 levothyroxine (SYNTH ROID/LEVOTHROID) 150 MCG tablet Encounter Details Date Type Department Care Team Description 02/11/2019 Refill [facility] Annette Alvarez, Refill Request Maricarmen ALVAREZ CNP (levothyroxine [address] [place] [id number] [place] [address] AV [address] (SYNTHROID/LEVOTHROID) [place], [place] 150 MCG tablet) [address] [address] [place] [address] [phone] Social History Tobacco Use Types Packs/Day Years Used Date Smoking Tobacco: Never Smokeless Tobacco: Never Alcohol Use Standard Drinks/Week Comments Yes 0 (1 standard drink = 0.6 oz pure alcoho l) rare Sex Assigned at Date Recorded Female 03/04/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 Routing refill request to provider for review/approval because: Thyroid Protocol Nkwyiz01/21 8:05 PM Recent (12 mo) or future (30 days) visit within the authorizing provider's specialty Normal TSH on file in past 12 months Next 5 appointments (look out 90 days) Feb 21, 2019 9:30 AM DRY CELL SEALER Telephone Visit with Jocelyn Davidson RD [facility] [facility] [address] [facility] [address] Apr 05, 2019 6:30 PM DRY CELL SEALER Return Visit with Annette Alvarez APRN CNP [facility] [address] [facility] [address] CELL SEALER Telephone Encounter - Sloan Vick RN - 02/15/2019 8:05 PM CST FNA spoke to patient re: levothyroxine refill. FNA advised of note by Annette Alvarez NP. Patient says her TSH was done at the [facility]. Patient has an appointment on 04/05/19 with Annette. Patient would like refills to be sent to [facility] in [place]. Patient is asking for a 90 day refill if possible. Sloan Vick RN/[facility] [facility] CELL SEALER Telephone Encounter - Annette Alvarez APRN CNP - 02/15/2019 4:21 AM DRY CELL SEALER Please call and have patient schedule a follow up visit - not seen for 1 year. Route back to me for refills to last until her scheduled follow up . Annette Alvarez NP Endocrinology CELL SEALER Telephone Encounter - Pam Tavera RN - 02/12/2019 4:32 PM CST Failed protocol CELL SEALER Telephone Encounter - Micah Sawant - 02/11/2019 4:54 PM CST Requested Prescriptions Pending Prescriptions Disp Refills ??? levothyroxine (SYNTHROID/LEVOTHROID) 150 MCG tablet Last Written Prescription Date: 10/17/2018 Last Fill Quantity: 90 tablet, # refills: 0 Last Office Visit: No previous visit found Future Office Visit: Next 5 appointments (look out 90 days) Apr 05, 2019 6:30 PM DRY CELL SEALER Return Visit with Annette Alvarez APRN CNP [facility] [address] [facility] [address] 90 tablet 0 Sig: Take [...] had a positive test, please check TSH. 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
--- OUTSIDE RECORDS SUMMARY | 2022-03-09 12:43 | XMS_ITS | Encounter Summary ---
:1965 Author Organization [place] Address [address] [facility] [place] [address] Care Team Providers Name Role Phone Annette Alvarez KIM HAIRSPRING ADJUSTER Unavailable [phone] Goran Lloyd Primary Care Provider Jocelyn Davidson RD Unavailable Reason for Visit Reason Onset Date Comments Diabetes Education 07/31/2018 appointment- pump fa ilure Encounter Details Date Type Department Care Team Description 07/31/2018 Telephone [facility] Jocelyn Davidson RD Diabetes Education Clinic [facility] (appointment- pump [address] failure) [place] [address] [address] [place] [address] Social History Tobacco Use Types Packs/Day Years Used Date Smoking Tobacco: Never Smokeless Tobacco: Never Alcohol Use Standard Drinks/Week Comments Yes 0 (1 standard drink = 0.6 oz pure alcoho l) rare Sex Assigned at Date Recorded Female 03/04/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 Let pt know that handbook writer could see her at 9:30 or 1:30 on Tue, 08/02. Pt to call [phone] to confirm if one of those times will work for her. Jocelyn Davidson RD, CDE Diabetes Innersole Maker documented in this encounter Plan of Treatment Not on filedocumented as of this encounter Visit Diagnoses Not on filedocumented in this encounter Care Teams Pathology Lab Technician Relationship Specialty Start Date End Date Goran Lloyd PCP - General Family Practice 12/29/17 05/21/20 [facility] [address] [place] [address] Annette Alvarez, Nurse Practitioner Clinical Nurse 03/22/17 10/21/20 CRIMINOLOGY PROFESSOR HAIRSPRING ADJUSTER Specialist [address] [place] [address] Visual Presentation Manager Dietitian, Registered 05/25/18 [facility] [place] [address] documented as of this encounter
--- OUTSIDE RECORDS SUMMARY | 2022-03-09 12:43 | XMS_ITS | Encounter Summary ---
:1965 Author Organization [place] Address [address] [facility] [place] [address] Care Team Providers Name Role Phone Annette Alvarez APRN HUMAN RESOURCES PROJECT MANAGER Unavailable [phone] Goran Lloyd Primary Care Provider Deidre Kirkland RD Unavailable Reason for Visit Reason Comments Diabetes Education Encounter Details Date Type Department Care Team Description 07/19/2018 [facility] Deidre Kirkland, Diabet es Education Health/[place] [address] [address] [place] [address] Social History Tobacco Use Types Packs/Day Years Used Date Smoking Tobacco: Never Smokeless Tobacco: Never Alcohol Use Standard Drinks/Week Comments Yes 0 (1 standard drink = 0.6 oz pure alcoho l) rare Sex Assigned at Date Recorded Female 03/04/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 Please allow 3 business days for your refills to be completed. Instructions for emailing the Diabetes Educators If you need to communicate a non-urgent message to a Galvanizing Pot Runner via email, please send to . Please [...] Insulin Pump Start SUBJECTIVE/OBJECTIVE Cultural Influences/Ethnic Background: [place] Pt here with , and Tandem pump Rep. Insulin Pump Information Insulin Pump Type: Tandem t:slim Pump Serial Number: [id number] Infusion Set: Tandem Tandem Infusion Set: Auto Soft 90 Insulin Pump Start Insulin Pump Type: Tandem t:slim Pump Serial Number: [id number] Tandem Infusion Set: Auto Soft 90, 6 [...] on: 07/28/[address], CDE Diabetes Medical Director Time Spent: 60 Visit Type: Individual [...] thyroid documented in this encounter Care Teams Wood Grinder Relationship Specialty Start Date End Date Goran Lloyd PCP - General Family Practice 12/29/17 05/21/[address] [address] Annette Alvarez, Nurse Practitioner Clinical Nurse 03/22/17 10/21/20 THREAD GRINDER HUMAN RESOURCES PROJECT MANAGER Specialist [address] [place], [place] [id number] Deidre Kirkland RD Galvanizing Pot Runner Dietitian, Registered 05/25/18 JET SERRANO [facility] [place] [address] documented as of this encounter
--- OUTSIDE RECORDS SUMMARY | 2022-03-09 12:44 | XMS_ITS | Encounter Summary ---
:1965 Author Organization [place] Address [facility] [place] [address] Care Team Providers Name Role Phone No Ref-Primary, Physician Primary Care Provider [phone] Annette Alvarez APRN CAREER DISCOVERY TEACHER Unavailable [phone] Reason for Visit Reason Onset Date Comments Appointment 10/19/2017 Encounter Details Date Type Department Care Team Description 10/19/[address] 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 She missed her appointment today and wanted to reschedule at the [place] location.I have scheduled patient as return with [...] be reached at: Home number on file [phone] (home) Best Time: Anytime. Can we leave a detailed message on this number? YES Call taken on 10/19/2017 at 7:27 PM by Bear documented in this encounter Plan of Treatment Not on filedocumented as of this encounter Visit Diagnoses Not on filedocumented in this encounter Care Teams Chemical Etching Processor Relationship Specialty Start Date End Date No Ref-Primary, PCP - General 12/25/14 12/28/17 Physician Annette Alvarezne, Nurse Practitioner Clinical Nurse Specialist 10/21/20 INSPECTOR REPAIRER CAREER DISCOVERY TEACHER [address] [place] [address] documented as of this encounter
--- OUTSIDE RECORDS SUMMARY | 2022-03-09 12:44 | XMS_ITS | Encounter Summary ---
:1965 Author Organization [place] Address [address] [place] [address]. [place] [address] Care Team Providers Name Role Phone No Ref-Primary, Physician Primary Care Provider [phone] Reason for Visit Reason Onset Date Comments Medication Request 01/26/2017 test strips Encounter Details Date Type Department Care Team Description [facility] Annette Alvarez, Medication Request (test Kewadin CATTLE INSPECTOR FLIGHT DATA TECHNICIAN strips) [address] [facility] [address] [place] [phone] [id number] (Wo rk) Social History Tobacco Use Types Packs/Day Years Used Date Smoking Tobacco: Never Smokeless Tobacco: Never Alcohol Use Standard Drinks/Week Comments Yes 0 (1 standard drink = 0.6 oz pure alcoho l) rare Sex Assigned at Date Recorded Female 03/04/2020 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 Ashok Bella RN Telephone Encounter - Annette Alvarez, CATTLE INSPECTOR FLIGHT DATA TECHNICIAN - 01/27/2017 12:25 PM CDT Please call [...] work shift times, OK to leave message [phone] Routing refill request to provider for review/approval [...] uncontrolled documented in this encounter Care Teams Maple Products Supervisor Relationship Specialty Start Date End Date No Ref-Primary, Physician PCP - General 12/25/14 12/28/17 documented as of this encounter
--- OUTSIDE RECORDS SUMMARY | 2022-03-09 12:44 | XMS_ITS | Encounter Summary ---
:1965 Author Organization [place] Address [address] [facility] [place] [address] Care Team Providers Name Role Phone No Ref-Primary, Physician Primary Care Provider [phone] Annette Alvarez APRN FISCAL MANAGER Unavailable [phone] Goran Lloyd Primary Care Provider Jocelyn Davidson RD Unavailable Tamar Murphy SUPERVISOR ACCOUNTS RECEIVABLE FISCAL MANAGER Unavailable Nikita Gamble Primary Care Provider Reason for Visit Reason Comments Consult Infectious Disease Encounter Details Date Type Department Care Team Description 10/13/2017 [facility]fect[facility] Fredy Pavon MD Disease) Patient Access [address] [address] [place], [place] [phone] [address] Social History Tobacco Use Types Packs/Day Years Used Date Smoking Tobacco: Never Smokeless Tobacco: Never Alcohol Use Standard Drinks/Week Comments Yes 0 (1 standard drink = 0.6 oz pure alcoho l) rare Sex Assigned at Date Recorded Female 03/04/2020 12:33 PM SURGICAL CLINICAL REVIEWER COVID-19 Exposure Response Date Recorded In the last month, have you been in contact with No / Unsure 03/05/2020 11:41 AM SURGICAL CLINICAL REVIEWER someone who was confirmed or suspected to have Coronavirus / COVID-19? documented as of this encounter Plan of Treatment Not on filedocumented as of this encounter Visit Diagnoses Not on filedocumented in this encounter Additional Health Concerns Infection Onset Date Last Indicated Resolved Time Rule Out COVID-19 02/26/2020 02/26/2020 02/27/2020 4:3 2 PM SURGICAL CLINICAL REVIEWER documented as of this encounter Care Teams Processing Analyst Relationship Specialty Start Date End Date No Ref-Primary, PCP - General 12/25/14 12/28/17 Physician Goran Lloyd PCP - General Family Practice 12/29/17 05/21/20 [facility] [address] [place] [address] Nikita Gamble PCP - General [facility] 05/26/20 [facility] [address] [place] [address] Annette Alvarez, Nurse Practitioner Clinical Nurse 03/22/17 10/21/20 SUPERVISOR ACCOUNTS RECEIVABLE FISCAL MANAGER Specialist [address] [place], [place] [phone] Jocelyn Davidson RD Echocardiologist Dietitian, Registered 05/25/18 [facility] [address] [place] [address] [place] [address] Tamar Murphy APRN Assigned PCP 02/08/20 1 FISCAL MANAGER [address] [place] [address] documented as of this encounter
--- OUTSIDE RECORDS SUMMARY | 2022-03-09 12:44 | XMS_ITS | Encounter Summary ---
:1965 Author Organization [place] Address [address] [place] [address]. [place] [address] Care Team Providers Name Role Phone No Ref-Primary, Physician Primary Care Provider [phone] Encounter Details Date Type Department Care Team Description 02/25/2017 Orders Only [facility] Typ e 1 diabetes mellitus with complications (H); [facility] Uncontrolled type 1 diabetes mellitus with stage 3 chronic kidney disease (H); [address] [facility] Flatulence, eructation, and gas pain; [place], [place] PCOS (polyc ystic ovarian syndrome) [address] Social History Tobacco Use Types Packs/Day Years Used Date Smoking Tobacco: Never Smokeless Tobacco: Never Alcohol Use Standard Drinks/Week Comments Yes 0 (1 standard drink = 0.6 oz pure alcoho l) rare Sex Assigned at Date Recorded Female 03/04/2020 12:33 PM PUBLIC SAFETY TELECOMMUNICATOR documented as of this encounter Progress Notes Annette Alvarez APRN CNP - 02/27/2017 2:18 PM CST Please mail comments and results to the patient. Marnie, Your kidney test is still elevated but the potassium is now normal. Your A1c is better, decreased from 7.8%. Here's a copy of the results for your records. Annette Alvarez NP Endocrinology IC SAFETY TELECOMMUNICATOR documented in this encounter Plan of Treatment Not on filedocumented as of this encounter Procedures Procedure Name Priority Date/Time Associated Diagnosis Comme nts HEMOGLOBIN A1C Routine 02/25/2017 12:05 Type 1 diabetes Result s for this PM PUBLIC SAFETY TELECOMMUNICATOR mellitus with procedure are in complications (H ) the results Uncontrolled type 1 section. diabetes mellitus with stage 3 chronic kidney disease (H) Flatulence, eructation, and gas pain BASIC METABOLIC Routine 02/25/2017 12:05 Type 1 diabetes Resul ts for this PANEL PM PUBLIC SAFETY TELECOMMUNICATOR mellitus with procedure are in complications (H ) the results Uncontrolled type 1 section. diabetes mellitus with stage 3 chronic kidney disease (H) Flatulence, eructation, and gas pain PCOS (polycystic ovarian syndrome) documented in this encounter Results (ABNORMAL) Basic metabolic panel FUTURE 1yr (02/25/2017 12:05 PM PUBLIC SAFETY TELECOMMUNICATOR) [facility] Method Time Signature Sodium 138 133 - 144 02/26/2017 [facility] mmol/L 11:18 AM [facility] Potassium 4.9 3.4 - 5.3 02/26/2017 [facility] mmol/L 11:18 AM [facility] Chloride 106 94 - 109 02/26/2017 [facility] mmol/L 11:18 AM [facility] Carbon Dioxide 20 20 - 32 02/26/2017 [facility] mmol/L 11:18 AM [facility] Anion Gap 12 3 - 14 02/26/2017 [facility] mmol/L 11:18 AM [facility] Glucose 157 (H) 70 - 99 02/26/2017 [facility] mg/dL 11:18 AM [facility] Urea Nitrogen 25 7 - 30 02/26/2017 [facility] mg/dL 11:18 AM [facility] Creatinine 1.60 (H) 0.52 - 02/26/2017 [facility] 1.04 11:18 AM [facility] mg/dL [facility] GFR Estimate 34 (L) >60 02/26/2017 [facility] mL/min/1. 11:18 AM [facility] 7m2 [facility] Comment: Non GFR Calc GFR Estimate If 41 (L) >60 mL/min/1.7m2 02/26/2017 11:[address] [facility] Comment: GFR Calc Calcium 8.8 8.5 - 10.1 mg/dL 02/26/2017 11:18 AM PUBLIC SAFETY TELECOMMUNICATOR [facility] Specimen Anatomical Collection Method Collection Time Receive d Time (Source) Location / / Volume Laterality Blood specimen 02/25/2017 12:05 7 (specimen) PM PUBLIC SAFETY TELECOMMUNICATOR 12:06 PM PUBLIC SAFETY TELECOMMUNICATOR Annette Alvarez APRN TOUR NARRATOR LAB - BLOOD ORDERABLES Performing Organization Address City/[facility]/ZIP Code Phon e Number [facility] [address] [place] [address] (ABNORMAL) Hemoglobin A1c (02/25/2017 12:05 PM PUBLIC SAFETY TELECOMMUNICATOR) P athologist Signature Hemoglobin A1C 7.6 (H) 4.3 - 6.0 02/25/2017 [facility] 12:21 PM PUBLIC SAFETY TELECOMMUNICATOR [facility] Specimen Anatomical Collection Method Collection Time Receive d Time (Source) Location / / Volume Laterality Blood specimen 02/25/2017 12:05 7 (specimen) PM PUBLIC SAFETY TELECOMMUNICATOR 12:06 PM PUBLIC SAFETY TELECOMMUNICATOR Annette Alvarez APRN, CNP LAB - BLOOD ORDERABLES Performing Organization Address City/[facility]/ZIP Code Phon e Number [facility] [address] [place] [address] documented in this encounter Visit Diagnoses Diagnosis Type 1 diabetes mellitus with complicati ons (H) Uncontrolled type 1 diabetes mellitus wi th stage 3 chronic kidney disease Type I (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
--- OUTSIDE RECORDS SUMMARY | 2022-03-09 12:44 | XMS_ITS | Encounter Summary ---
:1965 Author Organization [place] Address [address] [place] [address]. [place] [address] Care Team Providers Name Role Phone No Ref-Primary, Physician Primary Care Provider Annette Alvarez APRN VARNISHER Unavailable Reason for Visit Reason Comments Diabetes Encounter Details Date Type Department Care Team Description 06/17/2017 Office Visit [facility] Annette Alvarez Type 1 rohan radha mellitus with complications (H) (Primary Dx); [facility] [place] KIM Monroe VARNISHER Abnormal weight gain; [address] [place] [address] Morbid obesity (H); [place], [place] Diabeti c polyneuropathy associated with type 1 diabetes mellitus (H); [id number] 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 [phone] Social History Tobacco Use Types Packs/Day Years Used Date Smoking Tobacco: Never Smokeless Tobacco: Never Alcohol Use Standard Drinks/Week Comments Yes 0 (1 standard drink = 0.6 oz pure alcoho l) rare Sex Assigned at Date Recorded Female 03/04/2020 12:33 PM HOME CARE ASSOCIATE documented as of this encounter Last Filed [...] provider about better treatment for depression. Resources: [employer] Eating well.[employer] [facility] Move Program - handouts Meal planning momFortem Hungry girl.[employer] 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 History of right nephrectomy 12 years ago - was having severe pain prior to surgery, thinks due topolycystic kidney disease Lives in [place] Very distressed about weight gain and inability [...] Follow-up: 1 month Annette Alvarez NP Endocrinology [facility] CC: documented in this encounter Plan of Treatment Not on filedocumented as of this encounter Visit Diagnoses Diagnosis Type 1 diabetes mellitus with complicati ons (H) - Primary Abnormal weight gain Morbid obesity (H) Morbid obesity Diabetic polyneuropathy associated with type 1 diabetes mellitus (H) 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 documented in this encounter Care Teams Bundle Collector Relationship Specialty Start Date End Date No Ref-Primary, PCP - General 12/25/14 12/28/17 Physician Annette Alvarez, Nurse Practitioner Clinical Nurse Specialist 10/21/20 KIM RODRIGUEZ [address] [place] [address] documented as of this encounter
--- OUTSIDE RECORDS SUMMARY | 2022-03-09 12:44 | XMS_ITS | Encounter Summary ---
:1965 Author Organization [place] Address [address] [place] [address] Care Team Providers Name Role Phone No Ref-Primary, Physician Primary Care Provider [phone] Annette Alvarez MEDICAID COLLECTION SPECIALIST OUTSIDE BARREL LATHE OPERATOR Unavailable Reason for Visit Reason Onset Date Comments Diabetes No Show 12/22/2017 Encounter Details Date Type Department Care Team Description 12/22/2017 Office Visit [facility] GERALDO Moss SHOW (P rimary Dx) Clinic Cyclone MD Yina [address] [place] [address] [address] [place] [address] Social History Tobacco Use Types Packs/Day Years Used Date Smoking Tobacco: Never Smokeless Tobacco: Never Alcohol Use Standard Drinks/Week Comments Yes 0 (1 standard drink = 0.6 oz pure alcoho l) rare Sex Assigned at Date Recorded Female 03/04/2020 12:33 PM FISHING 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 documented in this encounter Plan of Treatment Not on filedocumented as of this encounter Visit Diagnoses Diagnosis NO SHOW - Primary documented in this encounter Care Teams Motion Picture Scene Builder Relationship Specialty Start Date End Date No Ref-Primary, PCP - General 12/25/14 12/28/17 Physician Annette Alvarez, Nurse Practitioner Clinical Nurse Specialist 10/21/20 MEDICAID COLLECTION SPECIALIST OUTSIDE BARREL LATHE OPERATOR [address] [place] [address] documented as of this encounter
--- OUTSIDE RECORDS SUMMARY | 2022-03-09 12:44 | XMS_ITS | Encounter Summary ---
:1965 Author Organization [place] Address [facility] [place] [address] Care Team Providers Name Role Phone No Ref-Primary, Physician Primary Care Provider [phone] Reason for Visit Reason Comments Diabetes Encounter Details Date Type Department Care Team Description 02/04/2017 Office Visit [facility] Lashae Alvarez Type 1 rohan betes mellitus with complications (H) (Primary Dx); [facility] [place] KIM Monroe VALIDATION SCIENTIST Uncontrolled type 1 diabetes mellitus wi th stage 3 chronic kidney disease (H); [id number] [place] [address] Flatulence, eructation, and gas pain; [place], [place] PCOS (p olycystic ovarian syndrome) [id number] [phone] Social History Tobacco Use Types Packs/Day Years Used Date Smoking Tobacco: Never Smokeless Tobacco: Never Alcohol Use Standard Drinks/Week Comments Yes 0 (1 standard drink = 0.6 oz pure alcoho l) rare Sex Assigned at Date Recorded Female 03/04/2020 12:33 PM VERIFYING MACHINE OPERATOR documented as of this encounter Last Filed Vital Signs Vital Sign Reading Time Taken Comments Blood Pressure 164/64 02/04/2017 9:19 AM VERIFYING MACHINE OPERATOR Pulse 76 02/04/2017 9:19 AM VERIFYING MACHINE OPERATOR Temperature 36.8 ??C (98.2 ??F) 02/04/2017 9:19 AM VERIFYING MACHINE OPERATOR Respiratory Rate 16 02/04/2017 9:19 AM VERIFYING MACHINE OPERATOR Oxygen Saturation - - Inhaled Oxygen Concentration - - Weight 112.7 kg (248 lb 6.4 oz) 02/04/2017 9:19 AM VERIFYING MACHINE OPERATOR Height - - Body Mass Index 34.16 12/25/2014 9:45 PM CDT documented in this encounter Patient Instructions Patient InstructionsLashae Alvarez APRN CNP - 02/04/2017 9:00 AM VERIFYING MACHINE OPERATOR We'll recheck creatinine today. If creatinine [...] months after that. Lashae Alvarez NP Endocrinology FYING MACHINE OPERATOR documented in this encounter Progress Notes [...] results when available. 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 Medication Reconciliation: complete FYING MACHINE OPERATOR documented in this encounter Miscellaneous Notes Addendum Note - Lashae Alvarez APRN VALIDATION SCIENTIST - 02/13/2017 9:57 PM VERIFYING MACHINE OPERATOR Addended by: LASHAE ALVAREZ on: 02/13/2017 09:57 PM Modules accepted: Orders FYING MACHINE OPERATOR documented in this encounter Plan of Treatment Not on filedocumented as of this encounter Procedures Procedure Name Priority Date/Time Associated Diagnosis Comme nts BASIC METABOLIC Routine 02/04/2017 10:30 Type 1 diabetes Resul ts for this PANEL AM VERIFYING MACHINE OPERATOR mellitus with procedure are in complications (H ) the results Uncontrolled type 1 section. diabetes mellitus with stage 3 chronic kidney disease (H) Flatulence, eructation, and gas pain documented in this encounter Results (ABNORMAL) Basic metabolic panel FUTURE 1yr (02/25/2017 12:05 PM VERIFYING MACHINE OPERATOR) [facility] Method Time Signature Sodium 138 133 - 144 02/26/2017 [facility] mmol/L 11:18 AM [facility] Potassium 4.9 3.4 - 5.3 02/26/2017 [facility] mmol/L 11:18 AM [facility] Chloride 106 94 - 109 02/26/2017 [facility] mmol/L 11:18 AM [facility] Carbon Dioxide 20 20 - 32 02/26/2017 [facility] mmol/L 11:18 AM [facility] Anion Gap 12 3 - 14 02/26/2017 [facility] mmol/L 11:18 AM [facility] Glucose 157 (H) 70 - 99 02/26/2017 [facility] mg/dL 11:18 AM [facility] Urea Nitrogen 25 7 - 30 02/26/2017 [facility] mg/dL 11:18 AM [facility] Creatinine 1.60 (H) 0.52 - 02/26/2017 [facility] 1.04 11:18 AM [facility] mg/dL [facility] GFR Estimate 34 (L) >60 02/26/2017 [facility] mL/min/1. 11:18 AM [facility] 7m2 [facility] Comment: Non GFR Calc GFR Estimate If 41 (L) >60 mL/min/1.7m2 02/26/2017 11:18 AM [facility] Black [facility] Comment: GFR Calc Calcium 8.8 8.5 - 10.1 mg/dL 02/26/2017 11:18 AM VERIFYING MACHINE OPERATOR [facility] Specimen Anatomical Collection Method Collection Time Receive d Time (Source) Location / / Volume Laterality Blood specimen 02/25/2017 12:05 7 (specimen) PM VERIFYING MACHINE OPERATOR 12:06 PM VERIFYING MACHINE OPERATOR Lashae Alvarez APRN VALIDATION SCIENTIST LAB - BLOOD ORDERABLES Performing Organization Address City/[facility]/ZIP Code Phon e Number [facility] [address] [place] [address] (ABNORMAL) Hemoglobin A1c (02/25/2017 12:05 PM VERIFYING MACHINE OPERATOR) P athologist Signature Hemoglobin A1C 7.6 (H) 4.3 - 6.0 02/25/2017 [facility] % 12:21 PM VERIFYING MACHINE OPERATOR [facility] Specimen Anatomical Collection Method Collection Time Receive d Time (Source) Location / / Volume Laterality Blood specimen 02/25/2017 12:05 7 (specimen) PM VERIFYING MACHINE OPERATOR 12:06 PM VERIFYING MACHINE OPERATOR Lashae Alvarez APRN VALIDATION SCIENTIST LAB - BLOOD ORDERABLES Performing Organization Address City/State/ZIP Code Phon e Number [facility] [address] [place] [address] (ABNORMAL) Basic metabolic panel (02/04/2017 10:30 AM VERIFYING MACHINE OPERATOR) Analysis Performed At Patho logist Time Signature Sodium 140 133 - 144 02/05/2017 [facility] mmol/L 1:47 PM [facility] Potassium 5.6 (H) 3.4 - 5.3 02/05/2017 [facility] mmol/L 1:47 PM [facility] Chloride 106 94 - 109 02/05/2017 [facility] mmol/L 1:47 PM [facility] Carbon Dioxide 25 20 - 32 02/05/2017 [facility] mmol/L 1:47 PM [facility] Anion Gap 9 3 - 14 02/05/2017 [facility] mmol/L 1:47 PM [facility] Glucose 134 (H) 70 - 99 02/05/2017 [facility] mg/dL 1:47 PM [facility] Comment: Non Fasting Urea Nitrogen 16 7 - 30 mg/dL 02/05/2017 1:47 PM [facility] Creatinine 1.40 (H) 0.52 - 1.04 02/05/2017 1:47 PM [facility] mg/dL [facility] GFR Estimate 40 (L) >60 mL/min/1.7m2 02/05/2017 1:47 PM F [facility] Comment: Non GFR Calc GFR Estimate If 48 (L) >60 mL/min/1.7m2 02/05/2017 1:47 P M [facility] Black [facility] Comment: GFR Calc Calcium 9.3 8.5 - 10.1 mg/dL 02/05/2017 1:47 PM [facility] Specimen Anatomical Collection Method Collection Time Receive d Time (Source) Location / / Volume Laterality Blood specimen 02/04/2017 10:30 7 (specimen) AM VERIFYING MACHINE OPERATOR 10:31 AM VERIFYING MACHINE OPERATOR Lashae Alvarez CLINICAL VETERINARIAN VALIDATION SCIENTIST LAB - BLOOD ORDERABLES Performing Organization Address City/State/ZIP Code Phon e Number [facility] [address] [place] [address] documented in this encounter Visit Diagnoses Diagnosis Type 1 diabetes mellitus with complicati ons (H) - Primary Uncontrolled type 1 diabetes mellitus wi th stage 3 chronic kidney disease Type I (juvenile type) diabetes mellitus with renal manifestations, uncontrolled Flatulence, eructation, and gas pain PCOS (polycystic ovarian syndrome) Polycystic ovaries documented in this encounter Care Teams Power Reactor Supervisor Relationship Specialty Start Date End Date No Ref-Primary, Physician PCP - General 12/25/14 12/28/17 documented as of this encounter
--- OUTSIDE RECORDS SUMMARY | 2022-03-09 12:44 | XMS_ITS | Encounter Summary ---
:1965 Author Organization [place] Address [address] [place] [address]. [place] [address] Care Team Providers Name Role Phone No Ref-Primary, Physician Primary Care Provider [phone] Annette Alvarez MOLDER MACHINE TENDER LOGGING CREW SUPERVISOR Unavailable Reason for Visit Reason Onset Date Comments Medication Question 03/22/2017 Encounter Details Date Type Department Care Team Description 03/22/[address] [facility] Annette Alvarez, Medication Question [place] MOLDER MACHINE TENDER LOGGING CREW SUPERVISOR [address] [address] [phone] (Wo rk) Social History Tobacco Use Types Packs/Day Years Used Date Smoking Tobacco: Never Smokeless Tobacco: Never Alcohol Use Standard Drinks/Week Comments Yes 0 (1 standard drink = 0.6 oz pure alcoho l) rare Sex Assigned at Date Recorded Female 03/04/2020 12:33 PM CHIEF OPHTHALMIC TECHNICIAN documented as of this encounter Miscellaneous Notes Telephone Encounter - Karley Kessler CMA - 03/22/2017 11:46 AM CHIEF OPHTHALMIC TECHNICIAN There is a 2nd telephone message with the same info as below from today. I am closing this encounterto avoid confusion. Please see the other message for f/u. Karley Kessler CMA F OPHTHALMIC TECHNICIAN Telephone Encounter - JayOlga Violeta - 03/22/2017 [...] to reach patient: Home number on file [phone] (home) Best Time: anytime Can we leave a detailed message on this number? YES F OPHTHALMIC TECHNICIAN documented in this encounter Plan of Treatment Not on filedocumented as of this encounter Visit Diagnoses Not on filedocumented in this encounter Care Teams Pressure Supervisor Relationship Specialty Start Date End Date No Ref-Primary, PCP - General 12/25/14 12/28/17 Physician Annette Alvarez, Nurse Practitioner Clinical Nurse Specialist 10/21/20 MOLDER MACHINE TENDER LOGGING CREW SUPERVISOR [address] [place] [address] documented as of this encounter
--- OUTSIDE RECORDS SUMMARY | 2022-03-09 12:44 | XMS_ITS | Encounter Summary ---
:1965 Author Organization [employer] Address [address] [facility] [place] [address] Care Team Providers Name Role Phone No Ref-Primary, Physician Primary Care Provider [phone] Annette Alvarez APRN CATHODIC PROTECTION TECHNICIAN Unavailable [phone] Reason for Visit Reason Onset Date Comments Results 03/22/2017 lab results and lega l questions Encounter Details Date Type Department Care Team Description 03/22/2017 Telephone [facility] No Ref-Primary, Results (lab results and Clinic [place] Physician legal questions) [address] [facility] [phone] [place], [place] (Fax) [phone] Social History Tobacco Use Types Packs/Day Years Used Date Smoking Tobacco: Never Smokeless Tobacco: Never Alcohol Use Standard Drinks/Week Comments Yes 0 (1 standard drink = 0.6 oz pure alcoho l) rare Sex Assigned at Date Recorded Female 03/04/2020 12:33 PM PIERCE AND SHAVE PRESS OPERATOR documented as of this encounter Miscellaneous Notes Telephone Encounter - Karley Kessler CMA - 03/23/2017 2:14 PM PIERCE AND SHAVE PRESS OPERATOR Pt informed. She will call back to make an appt. Karley Kessler CMA CE AND SHAVE PRESS OPERATOR Telephone Encounter - Yina Moss MD - 03/23/2017 10:51 AM PIERCE AND SHAVE PRESS OPERATOR Can f/u in 2-4 weeks with Annette. CE AND SHAVE PRESS OPERATOR Telephone Encounter - Karley Kessler CMA - 03/22/2017 11:38 AM PIERCE AND SHAVE PRESS OPERATOR SPOOLING OPERATOR, please advise in LS's absence. Karley Kessler CMA CE AND SHAVE PRESS OPERATOR Telephone Encounter - Jasmyn Lee RN - [...] this. I did advise her to contacta sap technical developer about this as I do not have a legal background or the answers to her questions regarding a legal commitment. Advised her it is not a simple process, its a legal process and she does have rights as an individual. She will contact a sap technical developer regarding her concerns. Jasmyn Lee RN -- [facility] Workforce CE AND SHAVE PRESS OPERATOR documented in this encounter Plan of Treatment Not on filedocumented as of this encounter Visit Diagnoses Not on filedocumented in this encounter Care Teams Surveillance Analyst Relationship Specialty Start Date End Date No Ref-Primary, PCP - General 12/25/14 12/28/17 Physician Annette Alvarez, Nurse Practitioner Clinical Nurse Specialist 10/21/20 EDITOR DICTIONARY CATHODIC PROTECTION TECHNICIAN [address] [place] [address] documented as of this encounter
--- OUTSIDE RECORDS SUMMARY | 2022-03-09 12:44 | XMS_ITS | Encounter Summary ---
:1965 Author Organization [facility] Address [address] [place] [address]. [place] [address] Care Team Providers Name Role Phone No Ref-Primary, Physician Primary Care Provider [phone] Annette Alvarez DOG TRAINER EXTRUSION DIE REPAIRER Unavailable [phone] Reason for Visit Reason Onset Date Comments Refill Request 11/09/2017 levothyroxine (SYNTH ROID/LEVOTHROID) 175 MCG tablet Refill Request 11/09/2017 pregabalin (LYRICA) 75 MG capsule Encounter Details Date Type Department Care Team Description 11/09/2017 Refill [facility] Annette Alvarez, Refill Request [place] DOG TRAINER EXTRUSION DIE REPAIRER (levothyroxine [address] [facility] [address] [facility] (SYNTHROID/LEVOTHROID) [place], [place] 175 MCG tablet); Refill [phone] Request (pregabalin [phone] (Wo rk) (LYRICA) 75 MG capsule) Social History Tobacco Use Types Packs/Day Years Used Date Smoking Tobacco: Never Smokeless Tobacco: Never Alcohol Use Standard Drinks/Week Comments Yes 0 (1 standard drink = 0.6 oz pure alcoho l) rare Sex Assigned at Date Recorded Female 03/04/2020 12:33 PM MIME ARTIST documented as of this encounter Miscellaneous Notes [...] CDT Return Visit with Yina Moss MD [facility] [address] [phone] 84 tablet 1 Sig: Take one tablet [...] CDT Return Visit with Yina Moss MD [facility]) [address] [place] [address] [facility] [phone] 180 capsule 1 Sig: Take 1 capsule (75 mg) by mouth 2 times daily There is no refill protocol information for this order documented in this encounter Plan of Treatment Not on filedocumented as of this encounter Visit Diagnoses Diagnosis 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 Diabetic polyneuropathy associated with type 1 diabetes mellitus (H) documented in this encounter Care Teams Head Athletic Trainer/Strength Coach Relationship Specialty Start Date End Date No Ref-Primary, PCP - General 12/25/14 12/28/17 Physician Annette Alvarez, Nurse Practitioner Clinical Nurse Specialist 10/21/20 DOG TRAINERJatin RODRIGUEZ [address] [place] [address] documented as of this encounter
--- OUTSIDE RECORDS SUMMARY | 2022-03-09 12:44 | XMS_ITS | Encounter Summary ---
:1965 Author Organization [place] Address [address] [facility] [place] [address] Care Team Providers Name Role Phone No Ref-Primary, Physician Primary Care Provider [phone] Annette Alvarez APRN COUNTY SUPERINTENDENT [employer] SCHOOLS Unavailable [phone] Goran Lloyd Primary Care Provider Jocelyn Davidson RD Unavailable Tamar Murphy BASKETBALL SCOUT COUNTY SUPERINTENDENT [employer]CHO[employer] Unavailable Nikita Gamble Primary Care Provider Reason for Visit Reason Comments Forms return to work Encounter Details Date Type Department Care Team Description 11/02/2017 [facility] Vu Isaacs, Fo dayan (return to [facility] Kim MERCADO work) [address] [place] [address] [address] [place] [phone] [place], [place] [phone] [facility] Social History Tobacco Use Types Packs/Day Years Used Date Smoking Tobacco: Never Smokeless Tobacco: Never Alcohol Use Standard Drinks/Week Comments Yes 0 (1 standard drink = 0.6 oz pure alcoho l) rare Sex Assigned at Date Recorded Female 03/04/2020 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 documented as of this encounter Plan of Treatment Not on filedocumented as of this encounter Visit Diagnoses Not on filedocumented in this encounter Additional Health Concerns Infection Onset Date Last Indicated Resolved Time Rule Out COVID-19 02/26/2020 02/26/2020 02/27/2020 4:3 2 PM PROGRAM DIRECTOR/MORNING SHOW HOST documented as of this encounter Care Teams Maintenance Job Titles Relationship Specialty Start Date End Date No Ref-Primary, PCP - General 12/25/14 12/28/17 Physician Goran Lloyd PCP - General Family Practice 12/29/17 05/21/20 [facility] [address] [place] [address] Nikita Gamble PCP - General [facility] 05/26/20 [facility] [address] [place] [address] Annette Alvarez, Nurse Practitioner Clinical Nurse 03/22/17 10/21/20 [employer]ALL [employer] SUPER[employer]ENDENT [employer] Specialist [address] [place], [place] [phone] [address] Large Sheetfed Press Operator Dietitian, Registered 05/25/18 JET [place] [facility] [place] [address] Tamar Murphy APRN Assigned PCP 02/08/20 1 [employer] SUPER[employer]END[employer] [address] [place] [address] documented as of this encounter
--- OUTSIDE RECORDS SUMMARY | 2022-03-09 12:44 | XMS_ITS | Encounter Summary ---
:1965 Author Organization [facility] Address [address] [place] [address]. [place] [address] Care Team Providers Name Role Phone Annette Alvarez KIM RODRIGUEZ Unavailable [phone] Goran Lloyd Primary Care Provider Reason for Visit Reason Onset Date Comments Patient Request for Note/Letter 01/04/2018 patient requesting letter to DM Encounter Details Date Type Department Care Team Description 01/04/2018 Telephone [facility] Annette Alvarez Patient Re quest for Clinic [place] KIM Monroe CNP Note/Letter (patient [address] [facility] [id number] [place] [address] requesting letter to [facility]) [phone] Social History Tobacco Use Types Packs/Day Years Used Date Smoking Tobacco: Never Smokeless Tobacco: Never Alcohol Use Standard Drinks/Week Comments Yes 0 (1 standard drink = 0.6 oz pure alcoho l) rare Sex Assigned at Date Recorded Female 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 Need to inform of all [...] while driving. 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 Her blood sugar dropped while driving home. She was driving [place] and 911 was called by several people. She eventually ended up driving thewrong way on a one way. Police were able to get her to heat treat puller and determined her BG was in the 20's and were able to treat her. Patient saw her primary outside of [facility] so there is no documentation in her [facility] chart. The letter written by her primary has not been accepted by the [place] [employer] Public Safety. Patient was pulled over yesterday and was told by the officer that her license is under suspension. Patient has until 01/13/18 to submit a letter from her doctor stating that her diabetes is under goodcontrol, that she is safe to drive and is currently under the care of a physician/provider for her diabetes. The letter needs to be on [facility] Letterhead and needs to have the providers [...] is able to drive. Please call patient [phone]. Andreina Falcon Machine Cell Tuber documented in this encounter Plan of Treatment Not on filedocumented as of this encounter Visit Diagnoses Not on filedocumented in this encounter Care Teams Edging Machine Operator Relationship Specialty Start Date End Date Ailabouni, Goran PCP - General Family Practice 12/29/17 05/21/[address] [address] Annette Alvarez, Nurse Practitioner Clinical Nurse Specialist 10/21/20 ESTIMATOR AND DRAFTER SUPERVISOR DICTAPHONE TECHNICIAN [address] [place] [address] documented as of this encounter
--- OUTSIDE RECORDS SUMMARY | 2022-03-09 12:44 | XMS_ITS | Encounter Summary ---
:1965 Author Organization [place] Address [address] [place] [address] Care Team Providers Name Role Phone No Ref-Primary, Physician Primary Care Provider Annette Alvarez APRN CLOTH BOLT BANDER Unavailable [phone] Reason for Visit Reason Onset Date Comments Prior Auth - Medication 06/27/2017 Contrave APPROVE D Encounter Details Date Type Department Care Team Description 06/27/2017 Telephone [facility] Annette Alvarez Prior Auth - Medication [facility] [place] KIM Monroe CNP (Contrave APPROVED) [address] [place] [phone] Social History Tobacco Use Types Packs/Day Years Used Date Smoking Tobacco: Never Smokeless Tobacco: Never Alcohol Use Standard Drinks/Week Comments Yes 0 (1 standard drink = 0.6 oz pure alcoho l) rare Sex Assigned at Date Recorded Female 03/04/2020 12:33 PM 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 Prior Authorization Approval Authorization Effective Date: 06/29/2017 Authorization Expiration Date: 10/29/2017 Medication: Contrave APPROVED Approved Dose/Quantity: 120/30 days Reference #: [id number] Insurance Company: [employer] - Expected CoPay: $25.00 Which Pharmacy is filling the prescription (Not needed for infusion/clinic administered): [facility] [address] [place] [address] [address] Pharmacy Notified: Yes Patient Notified: Yes Telephone Encounter - Lynsey Pro - 06/29/2017 9:00 AM CDT Images from the original note were not included. PA Initiation Medication: Contrave Insurance Company: [employer] - Pharmacy Filling the Rx: [facility] [id number] [facility] [address] Filling Pharmacy Filling Pharmacy Fax: Start Date: 06/29/2017 Central Prior Authorization Team Telephone Encounter - Karley Kessler CMA - 06/28/2017 1:48 PM CDT PA request routed to [place]. Waiting to hear back. Karley Kessler CMA Telephone Encounter - Karley Kessler CMA - 06/28/2017 1:31 PM CDT Prior Authorization Retail Medication Request Medication/Dose: Contrave ICD code (if different than what is on RX): Previously Tried and Failed: See below Rationale: Insurance Name: [employer] Pharmacy Information (if different than what is [...] on filedocumented in this encounter Care Teams Auto Hiker Relationship Specialty Start Date End Date No Ref-Primary, PCP - General 12/25/14 12/28/17 Physician Annette Alvarez, Nurse Practitioner Clinical Nurse Specialist 10/21/20 KIM RODRIGUEZ [address] [place] [address] documented as of this encounter
--- OUTSIDE RECORDS SUMMARY | 2022-03-09 12:44 | XMS_ITS | Encounter Summary ---
:1965 Author Organization [place] Address [address] [place] [address]. 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) Annette Alvarez FAIRVI [facility] KIM MONITORING AND EVALUATION ADVISOR [facility] [address] [phone] Referral ID Status Reason Start Date Expiration Date Visits Requ ested Visits Authorized [id number] Closed 12/29/2017 12/29/2018 1 1 Reason for Visit Reason Comments Diabetes Flu Shot Encounter Details Date Type Department Care Team Description 12/29/2017 Office Visit [facility] Annette Nuñez Type 1 rohan garcia mellitus with complications (H) (Primary Dx); [facility] [place] [facility] APRN CNP Need for prophylactic vaccination and in oculation against influenza; [address] Uncontrolled type 1 diabetes mellitus wi th stage 3 chronic kidney disease (H); [place], [place] PCOS (p olycystic ovarian syndrome); [id number] 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 Prevention: Flu Shot- Pneumovax- recommended Opthalmology-yes [...] RECOMBINANT VÁSQUEZ , IM (FluBlok, egg free) [86218]- >18 YRS (FMG [id number] YRS) ??? Vaccine Administration, Initial [77027] ??? Albumin Random Urine Quantitative with Creat Ratio ??? METAL WEATHER STRIPPER REFERRAL Radiology/Consults ordered today: All questions were answered. The patient indicates understanding of the above issues and agrees withthe plan set forth. Total face to face time greater than or equal to 25 minutes. Follow-up: 3 month Annette Alvarez NP Endocrinology [facility] [...] with Creat Ratio (12/29/2017 5:43 PM CDT) [facility] Method Time Signature Creatinine 56 mg/dL 12/30/2017 [place] Urine 4:[address] [facility] Albumin Urine <5 mg/L 12/30/2017 [place] mg/L 4:[address] [facility] Albumin Urine Unable to 0 - 25 12/30/2017 [place] mg/g Cr calculate due mg/g Cr 4:37 PM CDT CLINICS to low value [facility] Specimen Anatomical Collection Method Collection Time Receive d Time (Source) Location / / Volume Laterality Urine specimen 12/29/2017 5:43 PM 018 5:44 (specimen) CDT PM CDT Annette Alvarez DIAMOND POWDER TECHNICIAN MONITORING AND EVALUATION ADVISOR LAB - URINE ORDERABLES Performing Organization Address City/State/ZIP Code Phon e Number [facility] [address] [place] [address] documented in this encounter Visit Diagnoses Diagnosis [...] thyroid documented in this encounter Care Teams Police Cadet Relationship Specialty Start Date End Date Goran Lloyd PCP - General Family Practice 12/29/17 05/21/20 [facility] [address] [place] [address] Annette Alvarez, Nurse Practitioner Clinical Nurse Specialist 10/21/20 DIAMOND POWDER TECHNICIAN MONITORING AND EVALUATION ADVISOR [address] [place] [address] documented as of this encounter
--- OUTSIDE RECORDS SUMMARY | 2022-03-09 12:44 | XMS_ITS | Encounter Summary ---
:1965 Author Organization [place] Address [address] [place] [address]. [place] [address] Care Team Providers Name Role Phone No Ref-Primary, Physician Primary Care Provider Annette Alvarez ELECTRICAL MAINTENANCE MAN OXYGRAPH OPERATOR Unavailable Reason for Visit Reason Onset Date Comments Refill Request 08/31/2017 naltrexone-bupropion (CONTRAVE) 8-90 MG per 12 hr tablet Encounter Details Date Type Department Care Team Description 08/31/2017 Refill [facility] Annette Alvarez, Refill Request [place] ELECTRICAL MAINTENANCE MAN OXYGRAPH OPERATOR (naltrexone-bupropion [address] [address] [facility] (CONTRAVE) 8-90 MG per [place], [place] 12 hr t ablet) [phone] [id number] (Wo rk) Social History Tobacco Use Types Packs/Day Years Used Date Smoking Tobacco: Never Smokeless Tobacco: Never Alcohol Use Standard Drinks/Week Comments Yes 0 (1 standard drink = 0.6 oz pure alcoho l) rare Sex Assigned at Date Recorded 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 Jasmyn Lee, RN -- [facility] Telephone Encounter - Lisandro Lena - [...] obesity documented in this encounter Care Teams Slot Floor Person Relationship Specialty Start Date End Date No Ref-Primary, PCP - General 12/25/14 12/28/17 Physician Annette Alvarez, Nurse Practitioner Clinical Nurse Specialist 10/21/20 KIM RODRIGUEZ [address] [place] [address] documented as of this encounter
--- OUTSIDE RECORDS SUMMARY | 2022-03-09 12:45 | XMS_ITS | Encounter Summary ---
:1965 Author Organization [facility] Address [address] [place] [address]. [place] [address] Care Team Providers Name Role Phone No Ref-Primary, Physician Primary Care Provider [phone] Reason for Visit Reason Onset Date Comments No Show Diabetes Education No Show 12/10/2016 Encounter Details Date Type Department Care Team Description 12/10/2016 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 documented in this encounter Plan of Treatment Not on filedocumented as of this encounter Visit Diagnoses Diagnosis NO SHOW - Primary documented in this encounter Care Teams Square Cutter Relationship Specialty Start Date End Date No Ref-Primary, Physician PCP - General 12/25/14 12/28/17 documented as of this encounter
--- OUTSIDE RECORDS SUMMARY | 2022-03-09 12:45 | XMS_ITS | Encounter Summary ---
:1965 Author Organization [facility] Address [address] [place] [address]. [place] [address] Care Team Providers Name Role Phone No Ref-Primary, Physician Primary Care Provider [phone] Reason for Referral Patient Education - Closed Specialty Diagnoses / Procedures Referred By Contact Refer red To Contact Diagnoses Uncontrolled type 1 diabetes mellitus with stage 3 chronic kidney disease Lashae Alvarez APRN [facility] [address] [phone] Referral ID Status Reason Start Date Expiration Date Visits Requ ested Visits Authorized [id number] Closed 12/10/2016 12/10/2017 1 1 Reason for Visit Reason Comments Diabetes Encounter Details Date Type Department Care Team Description 11/25/2016 Office Visit [facility] Lashae Alvarez ed type 1 diabetes mellitus with stage 3 chronic kidney disease (H) (Primary Dx); Clinic [place] KIM Monroe CNP PCOS (polycystic ovarian syndrome) [address] [place] [id number] [phone] Social History Tobacco Use Types Packs/Day Years Used Date Smoking Tobacco: Never Smokeless Tobacco: Never Alcohol Use Standard Drinks/Week Comments Yes 0 (1 standard drink = 0.6 oz pure alcoho l) rare Sex Assigned at Date Recorded Female 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 History of right nephrectomy 12 years ago - was having severe pain prior to surgery, thinks due topolycystic kidney disease Lives in [place] Complications: Diabetes Complications Description / Detail Diabetic [...] Follow-up: 1 month Lashae Alvarez NP Endocrinology [facility] CC: documented in this encounter Nursing [...] Basic metabolic panel (11/25/2016 2:33 PM CDT) [facility] gist Method Time Signature Sodium 139 133 - 144 11/26/2016 [place] mmol/L 3:30 PM CDT [facility] Potassium 4.4 3.4 - 5.3 11/26/2016 [place] mmol/L 3:30 PM CDT [facility] Chloride 106 94 - 109 11/26/2016 [place] mmol/L 3:30 PM CDT [facility] Carbon Dioxide 24 20 - 32 11/26/2016 [place] mmol/L 3:30 PM CDT [facility] Anion Gap 9 3 - 14 11/26/2016 [facility] 3:30 PM CDT [facility] Glucose 117 (H) 70 - 99 11/26/2016 [place] mg/dL 3:30 PM CDT [facility] Urea Nitrogen 30 7 - 30 11/26/2016 [place] mg/dL 3:30 PM CDT [facility] Creatinine 2.10 (H) 0.52 - 11/26/2016 [place] 1.04 3:30 PM CDT CLINICS mg/dL [facility] GFR Estimate 25 (L) >60 11/26/2016 [place] mL/min/1. 3:30 PM CDT CLINICS 7m2 [facility] Comment: Non GFR Calc GFR Estimate If 30 (L) >60 mL/min/1.7m2 11/26/2016 3:30 P M [facility] Black T [facility] Comment: GFR Calc Calcium 8.9 8.5 - 10.1 mg/dL 11/26/2016 3:30 PM CDT [facility] Specimen Anatomical Collection Method Collection Time Receive d Time (Source) Location / / Volume Laterality Blood specimen 11/25/2016 2:33 PM 017 3:16 (specimen) CDT PM CDT Lashae Alvarez APRN ANIMAL CARE TECHNICIAN LAB - BLOOD ORDERABLES Performing Organization Address City/State/ZIP Code Phon e Number [facility] [address] [place] [address] Albumin Random Urine Quantitative with Creat Ratio (11/25/2016 2:33 PM CDT) Patholo gist Method Time Signature Creatinine 26 mg/dL 11/25/2016 [place] Urine 5:45 PM CDT [facility] Albumin Urine <5 mg/L 11/25/2016 [place] mg/L 5:49 PM CDT [facility] Albumin Urine Unable to 0 - 25 11/25/2016 [place] mg/g Cr calculate due mg/g Cr 5:49 PM CDT [facility] Specimen Anatomical Collection Method Collection Time Receive d Time (Source) Location / / Volume Laterality Urine specimen 11/25/2016 2:33 PM 017 2:34 (specimen) CDT PM CDT Lashae Alvarez APRN, CNP LAB - URINE ORDERABLES Performing Organization Address City/State/ZIP Code Phon e Number [facility] [address] [place] [address] [phone] [facility] [address] [place] [address], [facility] [phone] (ABNORMAL) Hemoglobin A1c (11/25/2016 2:33 PM CDT) P athologist Signature Hemoglobin A1C 7.8 (H) 4.3 - 6.0 11/25/2016 [place] % 2:57 PM CDT [facility] Comment: Results confirmed by repeat gail t Specimen Anatomical Collection Method Collection Time Receive d Time (Source) Location / / Volume Laterality Blood specimen 11/25/2016 2:33 PM 017 2:34 (specimen) CDT PM CDT Lashae Alvarez APRN, CNP LAB - BLOOD ORDERABLES Performing Organization Address City/[facility]/ZIP [facility] Phon e Number [facility] [address] [place] [address] documented in this encounter Visit Diagnoses Diagnosis Uncontrolled type 1 diabetes mellitus wi th stage 3 chronic kidney disease - Primary Type I (juvenile type) diabetes mellitus with renal manifestations, uncontrolled PCOS (polycystic ovarian syndrome) Polycystic ovaries documented in this encounter Care Teams Mold Worker Relationship Specialty Start Date End Date No Ref-Primary, Physician PCP - General 12/25/14 12/28/17 documented as of this encounter
--- OUTSIDE RECORDS SUMMARY | 2022-03-09 12:45 | XMS_ITS | Encounter Summary ---
:1965 Author Organization [place] Address [address] [place] [address]. [place] [address] Care Team Providers Name Role Phone No Ref-Primary, Physician Primary Care Provider [phone] Reason for Visit Reason Comments Abdominal Pain fell in shower 2 nights ago, not sure if related to her abdominal pain or not. 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 Follow up with [employer] in 2 days for reevaluation, contact info provided. Discuss repeat ultrasound to monitor cyst size with [employer]. Return to the ED for worsening symptoms, [...] contain Tylenol?? (acetaminophen), including Vicodin??, Tylenol #3??, [place]??, Lortab??, and Percocet??. You should not take [...] She felt better after receiving dilaudid. 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 Review of Systems Constitutional: Negative for fever [...] sleep apnea. Recommended patient follow up with [employer] PRES[employer]IDENT[employer] SAL[employer] in two days for reevaluation and to [...] break through pain - Follow up with [employer]IDENT[employer] in 2 days for reevaluation Discharge Medications: [...] Signature INR 1.60 (H) 0.86 - 1.14 [facility] Specimen Anatomical Collection Method Collection Time Receive d Time (Source) Location / / Volume Laterality 12/25/2014 10:48 12/25/2014 PM CDT 10:58 PM CDT Constance Wolff PA-C LAB - BLOOD ORDERABLES Performing Organization Address City/State/ZIP Code Phon e Number [facility] [address] [place] [address] [facility] [address] [place] [address], [place] [phone] Lactic acid (12/25/2014 10:48 PM CDT) athologist Signature Lactic Acid 1.3 0.7 - 2.1 [place] mmol/L [facility] Specimen Anatomical Collection Method Collection Time Receive d Time (Source) Location / / Volume Laterality Blood specimen 12/25/2014 10:48 5 (specimen) PM CDT 10:57 PM CDT Constance Wolff PA-C LAB - BLOOD ORDERABLES Performing Organization Address City/State/ZIP Code Phon e Number [facility] [address] [place] [address] [facility] [address] [place] [address], [place] [phone] Lipase (12/25/2014 10:48 PM CDT) P athologist Signature Lipase 165 73 - 393 [place] U/L [facility] Specimen Anatomical Collection Method Collection Time Receive d Time (Source) Location / / Volume Laterality Blood specimen 12/25/2014 10:48 5 (specimen) PM CDT 10:58 PM CDT Constance Wolff PA-C LAB - BLOOD ORDERABLES Performing Organization Address City/State/ZIP Code Phon e Number [facility] [address] [place] [address] [facility] [address] [place] [address], [place] [phone] (ABNORMAL) Comprehensive metabolic panel (12/25/2014 10:48 PM CDT) Analysis Performed At Patho logist Time Signature Sodium 137 133 - 144 [place] mmol/L [facility] Potassium 4.3 3.4 - 5.3 [place] mmol/L [facility] Chloride 104 94 - 109 [place] mmol/L [facility] Carbon Dioxide 29 20 - 32 [place] mmol/L [facility] Anion Gap 4 3 - 14 [place] mmol/L [facility] Glucose 77 70 - 99 [place] mg/dL [facility] Urea Nitrogen 16 7 - 30 [place] mg/dL [facility] Creatinine 1.27 (H) 0.52 - [place] 1.04 mg/dL [facility] GFR Estimate 45 (L) >60 [place] mL/min/1.[address] Comment: Non GFR Calc GFR Estimate If Black 54 (L) >60 mL/min/1.7m2 F [facility] Comment: GFR Calc Calcium 8.2 (L) 8.5 - 10.1 mg/dL [facility] Bilirubin Total 0.2 0.2 - 1.3 mg/dL [facility] Albumin 3.7 3.4 - 5.0 g/dL [facility] Protein Total 7.1 6.8 - 8.8 g/dL [facility] Alkaline Phosphatase 87 40 - 150 U/L [facility] ALT 24 0 - 50 U/L [facility] AST 16 0 - 45 U/L [facility] Specimen Anatomical Collection Method Collection Time Receive d Time (Source) Location / / Volume Laterality Blood specimen 12/25/2014 10:48 5 (specimen) PM CDT 10:58 PM CDT Constance Wolff PA-C LAB - BLOOD ORDERABLES Performing Organization Address City/State/ZIP Code Phon e Number [facility] [address] [place] [address] [facility] [address] [place] [address], [place] [phone] (ABNORMAL) CBC with platelets + differential (12/25/2014 10:48 PM CDT) [facility] Method Time Signature WBC 10.7 4.0 - [place] 11.0 [facility] 10e9/[facility] RBC Count 3.98 3.8 - 5.2 [place] 10e12/L [facility] Hemoglobin 11.9 11.7 - [place] 15.7 g/dL [facility] Hematocrit 34.5 (L) 35.0 - [place] 47.0 % [facility] MCV 87 78 - 100 [place] fl [facility] MCH 29.9 26.5 - [place] 33.0 pg [facility] MCHC 34.5 31.5 - [place] 36.5 g/dL [facility] RDW 12.3 10.0 - [place] 15.0 % [facility] Platelet Count 290 150 - 450 [place] 10e9/L [facility] Diff Method Automated [facility] % Neutrophils 71.9 % [facility] % Lymphocytes 19.2 % [facility] % Monocytes 5.6 % [facility] % Eosinophils 2.7 % [facility] % Basophils 0.5 % [facility] % Immature 0.1 % [place] Granulocytes [facility] Absolute 7.7 1.6 - 8.3 [place] Neutrophil 10e9/L [facility] Absolute 2.1 0.8 - 5.3 [place] Lymphocytes 10e9/L [facility] Absolute 0.6 0.0 - 1.3 [place] Monocytes 10e9/L [facility] Absolute 0.3 0.0 - 0.7 [place] Eosinophils 10e9/L [facility] Absolute 0.1 0.0 - 0.2 [place] Basophils 10e9/L [facility] Abs Immature 0.0 0 - 0.4 [facility] 10e9/L [facility] Specimen Anatomical Collection Method Collection Time Receive d Time (Source) Location / / Volume Laterality Blood specimen 12/25/2014 10:48 5 (specimen) PM CDT 10:58 PM CDT Constance Wolff PA-C LAB - BLOOD ORDERABLES Performing Organization Address City/State/ZIP Code Phon e Number [facility] [address] [place] [address] [facility]PITAL [facility] [address] [place] [address], [place] [phone] HCG qualitative urine (12/25/2014 10:05 PM CDT) athologist Signature HCG Qual Urine Negative NEG [facility] Specimen Anatomical Collection Method Collection Time Receive d Time (Source) Location / / Volume Laterality 12/25/2014 10:05 12/25/2014 PM CDT 10:51 PM CDT Brian Neil DO LAB - URINE ORDERABLES Performing Organization Address City/State/ZIP Code Phon e Number [facility] [address] [place] [address] (ABNORMAL) *UA reflex to Microscopic (12/25/2014 10:05 PM CDT) Patholo gist Method Time Signature Color Urine Yellow [facility] Appearance Urine Clear [facility] Glucose Urine 100 (A) NEG mg/dL [facility] Bilirubin Urine Negative NEG [facility] Ketones Urine Negative NEG mg/dL [facility] Specific [place] 1.010 1.003 - [place] Urine 1.035 [facility] Blood Urine Negative NEG [facility] pH Urine 6.0 5.0 - 7.0 [place] pH [facility] Protein Albumin Negative NEG mg/dL [place] Urine [facility] Urobilinogen 0.2 0.2 - 1.0 [place] Urine EU/dL [facility] Nitrite Urine Negative NEG [facility] Leukocyte Negative NEG [place] Esterase Urine [facility] Source Midstream [place] Urine [facility] Specimen Anatomical Collection Method Collection Time Receive d Time (Source) Location / / Volume Laterality 12/25/2014 10:05 12/25/2014 PM CDT 10:13 PM CDT Gem Ribeiro MD LAB - URINE ORDERABLES Performing Organization Address City/State/ZIP Code Phon e Number [facility] [address] [address] documented [...] doses documented in this encounter Care Teams 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
--- OUTSIDE RECORDS SUMMARY | 2022-03-09 12:45 | XMS_ITS | Encounter Summary ---
:1965 Author Organization [place] Address [facility] [place] [address] Care Team Providers Name Role Phone Unavailable Primary Care Provider Unavailable Encounter Details Date Type Department Care Team Description 12/15/2010 Emergency room [facility] Anthony Conway 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
--- OUTSIDE RECORDS SUMMARY | 2022-03-09 12:46 | XMS_ITS | Clinical Summary ---
:1965 Author Organization [employer] [place] [address] Care Team Providers Name Role Phone None Unavailable Unavailable Pcp, No Primary Care Provider Unavailable [facility], [place] Unavailable [phone] Allergies Active Allergy Reactions Severity Noted Date Comments Ibuprofen Stomach Upset 11/22/2013 Medications Medication Sig Dispensed Refills Start Date End Date Status aspirin enteric Take 1 tablet by 0 05/31/2013 Active coated 81 mg mouth once daily tabletIndications: with a meal. Diabetes mellitus type 1 (HC) citalopram (CELEXA) TAKE ONE TABLET BY 90 tablet 0 10/13/2016 Active 40 mg MOUTH ONCE DAILY tabletIndications: Depression with anxiety GLUCAGON EMERGENCY INJECT 1 MG 2 Each 2 10/26/2016 Active KIT, HUMAN, 1 mg INTRAMUSCULAR ONE kitIndications: Type TIME IF NEEDED FOR 1 diabetes mellitus LOW BLOOD SUGAR AND with other specified UNABLE TO SWALLOW complication (HC) tolterodine (DETROL) TAKE ONE TABLET BY 180 tablet 0 7 Active 2 mg MOUTH TWICE DAILY tabletIndications: Urinary incontinence, unspecified type estradiol (ESTRACE) Insert 0.5 g into 3 10/28/2017 Active 0.1 mg/g vaginal the vagina. Two cream days per week levothyroxine Take 200 mcg by 0 Active (SYNTHROID) 200 mcg mouth before tablet breakfast. pregabalin (LYRICA) Take 300 mg by 0 Active 300 mg capsule mouth two times daily. methocarbamoL Take 500 mg by 0 A ctive (ROBAXIN) 500 mg mouth 4 times daily tablet if needed for Muscle Spasm. amoxicillin (AMOXIL) Take 2,000 mg by 0 Active 500 mg capsule mouth each time if needed (prior to dentist appointment). oxybutynin XL Take 10 mg by mouth 0 Active (DITROPAN XL) 10 mg once daily. CR tablet phentermine Take 37.5 mg by 0 Ac tive (ADIPEX-P) 37.5 mg mouth once daily. tablet calcium Take 1 Tablet by 0 Act thai carbonate-vitamin mouth once daily D3, 600 mg-400 unit, with a meal. 600 mg-10 mcg (400 unit) tablet lansoprazole Take 30 mg by mouth 0 Active (PREVACID) 30 mg two times daily capsule before meals. rizatriptan (MAXALT Place 10 mg on the 0 Active SKIAGRAPHER) 10 mg tongue 2 times disintegrating daily if needed for tablet Migraine. Give at minimum 2hrs apart. Max Dose: 30mg per 24hrs. topiramate (TOPAMAX) Take 200 mg by 0 Active 100 mg tablet mouth once daily. amitriptyline Take 25-50 mg by 0 Active (ELAVIL) 25 mg mouth at bedtime if tablet needed. furosemide (LASIX) Take 40 mg by mouth 0 Active 40 mg tablet once daily. valACYclovir Take 500 mg by 0 Ac tive (VALTREX) 500 mg mouth 2 times daily tablet if needed. vitamin B complex Take 1 Tablet by 0 Active (B-COMPLEX VITAMIN) mouth once daily. tablet docusate (COLACE) Take 100 mg by 0 Active 100 mg capsule mouth once daily. amLODIPine (NORVASC) Take 1 Tablet (10 30 Tablet 0 02/06/2022 Active 10 mg mg) by mouth once tabletIndications: daily. HTN (hypertension) HYDROmorphone Take 1 Tablet (2 10 Tablet 0 02/05/2022 Active (DILAUDID) 2 mg mg) by mouth every tabletIndications: 6 hours if needed Intra-abdominal for Pain. abscess (HC) insulin aspart, For use with 0 02/05/2022 Active U-100, (NOVOLOG insulin pump. Use FLEXPEN) 100 unit/mL up to 125 units per (3 mL) day. Basal rate penIndications: Type 1.15 units per 1 diabetes mellitus hour. Correction with hypoglycemia factor 25. Insulin and without coma to carbohydrate (HC) ratio 1: 8.5 cefdinir (OMNICEF) Take 1 Capsule (300 16 Capsule 0 02/04/2022 300 mg mg) by mouth two 2 capsuleIndications: times daily for 8 Intra-abdominal days. abscess (HC) metroNIDAZOLE Take 1 Tablet (500 16 Tablet 0 02/04/2022 (FLAGYL) 500 mg mg) by mouth two 2 tabletIndications: times daily for 8 Intra-abdominal days. abscess (HC) acetaminophen Take 2 Tablets 0 02/05/2022 (TYLENOL EXTRA (1,000 mg) by mouth 2 STRGTH) 500 mg three times daily tabletIndications: for 7 days. Max Intra-abdominal acetaminophen dose: abscess (HC) 4000mg in 24 hrs. Active Problems Problem [...] Staphylococcus aureus infection 12/30/2014 Overview: Overview: Beronica 4- (surveillance swab for [facility] care worker, not associated with acute illness) [...] a few week. Met with Naveen, the asthma educator, ~2 months ago. Hypothyroidism Overview: Formatting of this note is dif ferent from the original. Levothyroxine. TSH (uIU/mL) Date Value 05/04/2016 0.24 (L) Knee osteoarthritis Overview: bilateral, has had injections. Sobia damon. Pain 7-11/04. Can't be seen at [place], owes them money. They suggested 2 total [...] congenital abnormality in 2005. Apparently the kidn nacho looked very abnormal and there was pus in it the at the time of emergency surgery. Chronic constipation 05/31/2013 06/28/2016 Anxiety 05/31/2013 05/31/2013 control 05/31/2013 06/28/2016 Encounters Date Type Specialty Care Team Description 02/09/2022 Orders Only Staff, Other 1 scan: (1-Ord) [facility] 02/05/2022 Telephone Dori Davidson, Referral (Liaison Referral) RN 01/25/2022 Anesthesia Event Pam Osorio DO 01/25/2022 Surgery Jonathan Donaldson ENDOSCOPIC RETR JULIEN Payne MD CHOLANGIOPAN CREATOGRAPHY 01/25/2022 [facility] Nikita Gross Intra-abdominal abscess (HC) (Primary Dx ); - Encounter McMenomy, Nathaniel HTN (hype rtension); 02/05/2022 MD Zbigniew Type 1 diabetes mellitus with hypoglycem ia and without coma (HC) Nathaniel Kulkarni MD Wirt, DO Kelvin Rosa Mosunmoluwa, MD Odenbach, Paul Jeffrey, MD [facility], [facility] Hospitalists Of Discharge Summary - Phuc Shipley MD - 02/05/2022 2:00 PM CST Images from the original not e were not included. HOSPITALIST DISCHARGE SUMMAR Y ? ? [facility] Admission Date: 01/25/2022 Discharge Date: 02/05/2022 Discharge Plan: Amaury cedillo was discharged to home and with home health care. Principal Diagnosis Septic shock from ascending cholangitis Hospital Problem List Principal Problem: Septic shock (HC) Active Problems: Diabetes mellitus type 1 (H C) Hypothyroidism GERD (gastroesophageal refl ux disease) Calculus of bile duct with acute cholangitis Acute on chronic kidney ksenia marin (HC) Postoperative intra-abdomin al abscess Ascending cholangitis Hospital Course Ms. Amaury Carbajal is a 56 y.o. female with a history of type 1 DM, s/p nephrectomy, obesity, recent laparascopic cholecystectomy with SARAY drain placement 3 days prior to presenting to [place] ER on 01/24 with abdominal pain an [...] infusion in the ER. On admission to [facility] on 01/25, she was on [...] another unintentional bolus occurs she should call [facility] or Endocrinology office of Dr. Low to speak with the stone mason csr technician. Recommendations for Outpatie nt Provider ? ? PCP: No Pcp Recommendations for outpati ent provider Specific recommendations to be addressed at the follow up visit: FOLLOW UP blood pressure an d Creatinine (changed to norvasc from lisinopril). Ensure doing well at home with home care and determine when she could return to work. Ensure follow up with her surgeons in [place]. Discharge Medications Your Home Medicines START taking [...] Take 1 Tablet (10 mg) by mo rih once daily. cefdinir 300 mg capsule For [...] your medicines These medications were sent to [facility] [phone] [id number] [id number] Hours: Open 24 Hours ?? amLODIPine 10 [...] -- POTASSIUM 4.0 4.0 CHLORIDE 108 -- [id number] 24 -- ANIONGAP 8 -- BUN 13 [...] and I nstructions AMB CONSULT TO HOME retirement Health Certification/F verona to Face Attestation: I certify that this patient is confined to his/her home and needs intermittent intermediate care, physical therapy and/or speech therapy or continues to need occupational therapy. A plan of care has been established and will be reviewed periodically by a physician or allowed practitioner. Services will be furnished while the patient is under the care of a physician or allowed practitioner. The lizz ent had a drzu-jx-caff encou nter with a physician or an allowed non-physician practitioner and the encounter was related to the primary reason for home health. Date of the Face to Face Enc ounter: 02/05/2022. Based on my findings, review of the medical records, and/or collaboration with the other providers, the following services are medically necessary home health services: Fdc This patient is confined to his/her home because: There is a taxing effort to leave the home due to abdominal abscess and infection. Patient requires the assista nce of another individual in order to leave the home. Provider following for home care services: No Pcp Electronically signed, Phuc Shipley MD [facility] Answering service: Contact on [employer] System 02/05/2022 After Hospital Follow Up Ap pointment(s) Follow up with your Endocri nologist at [place] within 2-4 weeks. If transfer of care to Jammie Low MD is desired please call her office. Contact information: Jammie Low MD [address] [address] When to follow up: 2 to 4 [...] Chavira in 2-3 weeks. Tuesday Clinic address: [address] [place] [address] [employer] [facility] [address] - phone number is [phone] - You can reach infectious dis eases at [phone] NURSING COMMUNICATION [facility] Your first [facility] Care visit is planned following hospital discharge. ?? An [facility] nurse or therapist will call you to schedule a visit. The call will occur the day before your first visit or by 9am the day of your first visit. ??Please call [phone] a nd ask for [facility] triage if you have further questions about home health. Thank you. Primary Care Provider ayo amezcua up appointment(s) When to follow up: 1 to 5 d ays Rehab Potential: Good Fdc Eval and Tr eat Treatment Options: Full [...] medical emergency. [facility] were [facility] at the [facility]? You were in the hospital fo r abscess in abdomen. You need to follow up with primary MD this next week and your surgeon in [place] in 1-2 weeks. Follow up with Infectious Disease as well. Pending Studies Lab results that may not be resulted at time of discharge: (From admission through now) None Total time spent on discharg e coordination: 55 minutes. Patient was seen and examined today. Phuc Shipley MD Hospitalist, [facility] ? ? [phone] S TIE TRAM LOADER 01/22/2022 Lab Requisition Tamar Solorzano MD from [...] Smokeless Tobacco: Never Tobacco Cessation: Counseling Given: Yes Alcohol Use Standard Drinks/Week Comments No 0 (1 standard drink = 0.6 oz pure alcoho l) very rare Sex Assigned at Date Recorded Not on file Obstetrics History Para Term AB IAB SAB Ectopic Multiple Living Live Births 0 0 0 0 0 0 0 0 0 0 Last Filed Vital Signs Vital Sign Reading Time Taken Comments Blood Pressure 144/63 02/05/2022 7:34 AM CROSS TIE TRAM LOADER Pulse 50 02/05/2022 7:34 AM CROSS TIE TRAM LOADER Temperature 36.6 ??C (97.8 ??F) 02/05/2022 7:34 AM CROSS TIE TRAM LOADER Respiratory Rate 18 02/05/2022 7:34 AM CROSS TIE TRAM LOADER Oxygen Saturation 96% 02/05/2022 7:34 AM CROSS TIE TRAM LOADER Inhaled Oxygen Concentration - - Weight 129 kg (284 lb 6.3 oz) 01/26/2022 6:00 AM CDT Height 180.3 cm (5' 11) 01/25/2022 2:00 AM CDT Body Mass Index 39.66 01/25/2022 2:00 AM CDT Plan of Treatment Upcoming Encounters Date Type Specialty Care Team Description 03/10/2022 Hospital Torey Fernandez Encounter MD [facility] [address] [place] [address] 03/10/2022 Surgery Torey Fernandez ENDOSCOPIC R ETROGRADE MD [facility] CHOLANGIOPANCREATOGRAPHY [address] [place], [place] [id number] Scheduled Procedures Name Priority Associated Diagnoses Date/Time ENDOSCOPIC RETROGRADE Tier 2 bile leak 03/10/2022 8:55 AM CHOLANGIOPANCREATOGRAPHY CROSS TIE TRAM LOADER Health Maintenance Due Date Last Done Comments [...] Completed 08/24/2005 Medical Devices Implanted Type Area Bilingual Medical Assistant Device Shelf Model / Identifier Expiration Serial / Lot Date Stent Biliary [id number] Advanix Duodenal Bend Plst N/A: 10/29/2023 [id number] / Implanted: Qty: 1 on 01/25/2022 by Nathaniel Donaldson MD at [facility] Common / Bile Duct [id number] Description: Stent Biliary [id number] Adva nix Duodenal Bend Plst Procedures Procedure Name Priority Date/Time Associated Comments Diagnosis SCAN CORRESP-EKG RESULTS 03/09/2022 Res ults for 7:35 AM CROSS TIE TRAM LOADER this procedure are in the results section. SCAN CORRESP-IMAGING 02/09/2022 Results for 12:00 AM CROSS TIE TRAM LOADER this procedure are in the results section. SCAN CORRESP-DIAGNOSTICS 02/09/2022 Res ults for 12:00 AM CROSS TIE TRAM LOADER this procedure are in the results section. GLUCOSE METER Timed 02/05/2022 Results for 12:36 PM CROSS TIE TRAM LOADER this procedure are in the results section. GLUCOSE METER Timed 02/05/2022 Results for 7:33 AM CROSS TIE TRAM LOADER this procedure are in the results section. GLUCOSE METER Timed 02/05/2022 Results for 2:19 AM CROSS TIE TRAM LOADER this procedure are in the results section. GLUCOSE METER Timed 02/04/2022 Results for 9:36 PM CROSS TIE TRAM LOADER this procedure are in the results section. GLUCOSE METER Timed 02/04/2022 Results for 5:04 PM CROSS TIE TRAM LOADER this procedure are in the results section. GLUCOSE METER Timed 02/04/2022 Results for 1:47 PM CROSS TIE TRAM LOADER this procedure are in the results section. GLUCOSE METER Timed 02/04/2022 Results for 1:30 PM CROSS TIE TRAM LOADER this procedure are in the results section. GLUCOSE METER Timed 02/04/2022 Results for 1:09 PM CROSS TIE TRAM LOADER this procedure are in the results section. POTASSIUM Early AM 02/04/2022 Results for 11:08 AM CROSS TIE TRAM LOADER this procedure are in the results section. CREATININE Early AM 02/04/2022 Results for 11:08 AM CROSS TIE TRAM LOADER this procedure are in the results section. GLUCOSE METER Timed 02/04/2022 Results for 8:49 AM CROSS TIE TRAM LOADER this procedure are in the results section. GLUCOSE METER Timed 02/04/2022 Results for 2:12 AM CROSS TIE TRAM LOADER this procedure are in the results section. GLUCOSE METER Timed 02/03/2022 Results for 10:02 PM CROSS TIE TRAM LOADER this procedure are in the results section. GLUCOSE METER Timed 02/03/2022 Results for 7:03 PM CROSS TIE TRAM LOADER this procedure are in the results section. GLUCOSE METER Timed 02/03/2022 Results for 6:43 PM CROSS TIE TRAM LOADER this procedure are in the results section. GLUCOSE METER Timed 02/03/2022 Results for 12:20 PM CROSS TIE TRAM LOADER this procedure are in the results section. HEMOGLOBIN Early AM 02/03/2022 Results for 10:35 AM CROSS TIE TRAM LOADER this procedure are in the results section. BASIC METABOLIC PANEL Early AM 02/03/2022 Result s for 10:35 AM CROSS TIE TRAM LOADER this procedure are in the results section. GLUCOSE METER Timed 02/03/2022 Results for 8:09 AM CROSS TIE TRAM LOADER this procedure are in the results section. GLUCOSE METER Timed 02/03/2022 Results for 2:38 AM CROSS TIE TRAM LOADER this procedure are in the results section. GLUCOSE METER Timed 02/02/2022 Results for 9:54 PM CROSS TIE TRAM LOADER this procedure are in the results section. GLUCOSE METER Timed 02/02/2022 Results for 5:47 PM CROSS TIE TRAM LOADER this procedure are in the results section. GLUCOSE METER Timed 02/02/2022 Results for 11:50 AM CROSS TIE TRAM LOADER this procedure are in the results section. CBC W PLT NO DIFF Early AM 02/02/2022 Results fo r 8:27 AM CROSS TIE TRAM LOADER this procedure are in the results section. HEPATIC FUNCTION PANEL Early AM 02/02/2022 Resul ts for 8:26 AM CROSS TIE TRAM LOADER this procedure are in the results section. BASIC METABOLIC PANEL Early AM 02/02/2022 Result s for 8:26 AM CROSS TIE TRAM LOADER this procedure are in the results section. GLUCOSE METER Timed 02/02/2022 Results for 7:53 AM CROSS TIE TRAM LOADER this procedure are in the results section. GLUCOSE METER Timed 02/02/2022 Results for 2:12 AM CROSS TIE TRAM LOADER this procedure are in the results section. GLUCOSE METER Timed 02/01/2022 Results for 9:36 PM CROSS TIE TRAM LOADER this procedure are in the results section. GLUCOSE METER Timed 02/01/2022 Results for 5:42 PM CROSS TIE TRAM LOADER this procedure are in the results section. GLUCOSE METER Timed 02/01/2022 Results for 5:24 PM CROSS TIE TRAM LOADER this procedure are in the results section. POTASSIUM Today 02/01/2022 Results for 4:58 PM CROSS TIE TRAM LOADER this procedure are in the results section. GLUCOSE METER Timed 02/01/2022 Results for 4:56 PM CROSS TIE TRAM LOADER this procedure are in the results section. XR PERCUTANEOUS TUBE REMOVAL Routine 02/01/2022 Results for 4:34 PM CROSS TIE TRAM LOADER this procedure are in the results section. GLUCOSE METER Timed 02/01/2022 Results for 12:12 PM CROSS TIE TRAM LOADER this procedure are in the results section. CT ABDOMEN PELVIS WO Routine 02/01/2022 Results for 11:51 AM CROSS TIE TRAM LOADER this procedure are in the results section. GLUCOSE METER Timed 02/01/2022 Results for 8:33 AM CROSS TIE TRAM LOADER this procedure are in the results section. GLUCOSE METER Timed 02/01/2022 Results for 8:19 AM CROSS TIE TRAM LOADER this procedure are in the results section. GLUCOSE METER Timed 02/01/2022 Results for 4:10 AM CROSS TIE TRAM LOADER this procedure are in the results section. GLUCOSE METER Timed 02/01/2022 Results for 12:55 AM CROSS TIE TRAM LOADER this procedure are in the results section. GLUCOSE METER Timed 01/31/2022 Results for 9:50 PM CROSS TIE TRAM LOADER this procedure are in the results section. GLUCOSE METER Timed 01/31/2022 Results for 5:24 PM CROSS TIE TRAM LOADER this procedure are in the results section. GLUCOSE METER Timed 01/31/2022 Results for 1:30 PM CROSS TIE TRAM LOADER this procedure are in the results section. ECHO COMPLETE W CONTRAST Routine 01/31/2022 Res ults for 1:02 PM CROSS TIE TRAM LOADER this procedure are in the results section. HEMOGLOBIN Early AM 01/31/2022 Results for 10:19 AM CROSS TIE TRAM LOADER this procedure are in the results section. WHITE BLOOD COUNT Early AM 01/31/2022 Results fo r 10:19 AM CROSS TIE TRAM LOADER this procedure are in the results section. BASIC METABOLIC PANEL Early AM 01/31/2022 Result s for 10:19 AM CROSS TIE TRAM LOADER this procedure are in the results section. GLUCOSE METER Timed 01/31/2022 Results for 10:03 AM CROSS TIE TRAM LOADER this procedure are in the results section. GLUCOSE METER Timed 01/31/2022 Results for 7:45 AM CROSS TIE TRAM LOADER this procedure are in the results section. GLUCOSE METER Timed 01/31/2022 Results for 7:29 AM CROSS TIE TRAM LOADER this procedure are in the results section. GLUCOSE METER Timed 01/31/2022 Results for 7:22 AM CROSS TIE TRAM LOADER this procedure are in the results section. GLUCOSE METER Timed 01/31/2022 Results for 6:51 AM CROSS TIE TRAM LOADER this procedure are in the results section. GLUCOSE METER Timed 01/31/2022 Results for 2:13 AM CROSS TIE TRAM LOADER this procedure are in the results section. [...] CDT from Last 3 Months Results SCAN CORRESP-EKG RESULTS (03/09/2022 7:35 AM CROSS TIE TRAM LOADER) Narrative 03/09/2022 7:35 AM CROSS TIE TRAM LOADER This result has an attachment that is no t available. Ordered by an unspecified provider. Other Clinical Staff OTHER SCAN CORRESP-DIAGNOSTICS (02/09/2022 12:00 AM CROSS TIE TRAM LOADER) Narrative 02/09/2022 12:00 AM CROSS TIE TRAM LOADER This result has an attachment that is no t available. Ordered by an unspecified provider. Other Clinical Staff OTHER SCAN CORRESP-IMAGING (02/09/2022 12:00 AM CROSS TIE TRAM LOADER) Anatomical Region Laterality Modality Other Narrative 02/09/2022 12:00 AM CROSS TIE TRAM LOADER This result has an attachment that is no t available. Ordered by an unspecified provider. Other Clinical Staff OTHER (ABNORMAL) GLUCOSE METER (02/05/2022 12:36 PM CROSS TIE TRAM LOADER)Only the most recent of112 resultswithin the time period is included. athologist Signature GLUCOSE METER 109 (H) 65 - 100 02/05/2022 [facility] mg/dL 12:41 PM CROSS TIE TRAM LOADER [facility] Specimen Anatomical Collection Method Collection Time Receive d Time (Source) Location / / Volume Laterality Blood BLOOD SPECIMEN / 02/05/2022 12:36 022 Unknown PM CROSS TIE TRAM LOADER 12:40 PM CROSS TIE TRAM LOADER Phuc Shipley MD CHEMISTRY Performing Organization Address City/State/ZIP Code Phon e Number [facility] [address] [place] [address] [facility] [address] LABORATORY Potassium AM (02/04/2022 11:08 AM CROSS TIE TRAM LOADER)Only the most recent of2 resultswithin the time period is included. athologist Signature POTASSIUM 4.0 3.5 - 5.0 02/04/2022 [facility] mmol/L 11:36 AM CROSS TIE TRAM LOADER [facility] Specimen Anatomical Collection Method / Collection Time Recei olga Time (Source) Location / Volume Laterality Blood BLOOD SPECIMEN / Non-Lab 02/04/2022 11:08 022 Unknown Venipuncture / AM CROSS TIE TRAM LOADER 11:18 AM CROSS TIE TRAM LOADER Unknown Phuc Shipley MD CHEMISTRY Performing Organization Address [facility]/ZIP [facility] e Number [facility] [address] [place] [id number] [facility] LABORATORY (ABNORMAL) Creatinine AM (02/04/2022 11:08 AM CROSS TIE TRAM LOADER)Only the most recent of2 resultswithin the time period is included. athologist Signature CREATININE 1.47 (H) 0.57 - 02/04/2022 [facility] 1.11 mg/dL 11:41 AM CROSS TIE TRAM LOADER [facility] eGFR 42 (L) >90 02/04/2022 [facility] mL/min/1.7 11:41 AM CROSS TIE TRAM LOADER LAB[facility]ATORY-[facility] 3m2 RAL LABORATORY Comment: As of [...] 02/04/2022 11:08 022 Unknown Venipuncture / AM CROSS TIE TRAM LOADER 11:18 AM CROSS TIE TRAM LOADER Unknown Phuc Shipley MD CHEMISTRY Performing Organization Address [facility] Phon e Number [place] [facility] [address] [place] [id number] [facility] LABORATORY (ABNORMAL) Hemoglobin AM (02/03/2022 10:35 AM CROSS TIE TRAM LOADER)Only the most recent of3 resultswithin the time period is included. athologist Signature HEMOGLOBIN 9.0 (L) 12.0 - 02/03/2022 [facility] 16.0 g/dL 11:02 AM CROSS TIE TRAM LOADER [facility] MCV 95 80 - 100 02/03/2022 [facility] fL 11:02 AM CROSS TIE TRAM LOADER [facility] Specimen Anatomical Collection Method / Collection Time Recei olga Time (Source) Location / Volume Laterality Blood BLOOD SPECIMEN / Venipuncture / 02/03/2022 10:35 02/03 Unknown Unknown AM CROSS TIE TRAM LOADER 10:50 AM CROSS TIE TRAM LOADER Phuc Shipley MD HEMATOLOGY Performing Organization Address City/State/ZIP Code Phon e Number [facility] [address] [place] [address] [facility] LABORATORY (ABNORMAL) Basic metabolic panel AM (02/03/2022 10:35 AM CROSS TIE TRAM LOADER)Only the most recent of10 resultswithin the time period is included. [facility] Method Time Signature SODIUM 140 135 - 145 02/03/2022 [facility] mmol/L 11:21 AM CROSS TIE TRAM LOADER [facility] POTASSIUM 4.0 3.5 - 5.0 02/03/2022 [facility] mmol/L 11:21 AM CROSS TIE TRAM LOADER [facility] CHLORIDE 108 98 - 110 02/03/2022 [facility] mmol/L 11:21 AM CROSS TIE TRAM LOADER [facility] CO2,TOTAL 24 21 - 31 02/03/2022 [facility] mmol/L 11:21 AM CROSS TIE TRAM LOADER [facility] ANION GAP 8 5 - 18 02/03/2022 [facility] 11:21 AM CROSS TIE TRAM LOADER [facility] GLUCOSE 92 65 - 100 02/03/2022 [facility] mg/dL 11:21 AM CROSS TIE TRAM LOADER [facility] CALCIUM 8.4 (L) 8.5 - 10.5 02/03/2022 [facility] mg/dL 11:21 AM CROSS TIE TRAM LOADER [facility] BUN 13 8 - 25 02/03/2022 [facility] mg/dL 11:21 AM CROSS TIE TRAM LOADER [facility] LABORATORY CREATININE 1.35 (H) 0.57 - 02/03/2022 [facility] 1.11 mg/dL 11:21 AM CROSS TIE TRAM LOADER LABORATORY-[facility] TRAL LABORATORY BUN/CREAT RATIO 10 10 - 20 02/03/2022 [facility] 11:21 AM CROSS TIE TRAM LOADER LABORATORY-[facility] TRAL LABORATORY eGFR 46 (L) >90 02/03/2022 [facility] mL/min/1.7 11:21 AM CROSS TIE TRAM LOADER LABORATORY-[facility] 3m2 TRAL LABORATORY Comment: As of [...] / 02/03/2022 10:35 02/03 Unknown Unknown AM CROSS TIE TRAM LOADER 10:50 AM CROSS TIE TRAM LOADER Phuc Shipley MD CHEMISTRY Performing Organization Address City/State/ZIP Code Phon e Number [facility] [address] [place] [address] LABORATORY-CENTRAL 2000 LABORATORY (ABNORMAL) CBC no diff AM (02/02/2022 8:27 AM CROSS TIE TRAM LOADER)Only the most recent of5 resultswithin the time period is included. [facility] Method Time Signature WHITE BLOOD 10.1 4.5 - 11.0 02/02/2022 [facility] COUNT thou/cu mm 9:21 AM CROSS TIE TRAM LOADER LABORATORY-[place] TRAL LABORATORY RED BLOOD COUNT 2.93 (L) 4.00 - 02/02/2022 [facility] 5.20 9:21 AM CROSS TIE TRAM LOADER LABORATORY-[facility] mil/cu mm TRAL LABORATORY HEMOGLOBIN 8.7 (L) 12.0 - 02/02/2022 [facility] 16.0 g/dL 9:21 AM CROSS TIE TRAM LOADER LABORATORY-[place] TRAL LABORATORY HEMATOCRIT 27.9 (L) 33.0 - 02/02/2022 [facility] 51.0 % 9:21 AM CROSS TIE TRAM LOADER LABORATORY-[facility] TRAL LABORATORY MCV 95 80 - 100 02/02/2022 [facility] fL 9:21 AM CROSS TIE TRAM LOADER LABORATORY-[place] TRAL LABORATORY MCH 29.7 26.0 - 02/02/2022 [facility] 34.0 pg 9:21 AM CROSS TIE TRAM LOADER LABORATORY-[place] TRAL LABORATORY MCHC 31.2 (L) 32.0 - 02/02/2022 [facility] 36.0 g/dL 9:21 AM CROSS TIE TRAM LOADER LABORATORY-[place] TRAL LABORATORY RDW 14.0 11.5 - 02/02/2022 [facility] 15.5 % 9:21 AM CROSS TIE TRAM LOADER LABORATORY-[facility] TRAL LABORATORY PLATELET COUNT 497 (H) 140 - 440 02/02/2022 [facility] thou/cu mm 9:21 AM CROSS TIE TRAM LOADER LABORATORY-[place] TRAL LABORATORY MPV 10.0 6.5 - 11.0 02/02/2022 [facility] 9:21 AM CROSS TIE TRAM LOADER LABORATORY-[place] TRAL LABORATORY NRBC 0.0 % 02/02/2022 [facility] 9:21 AM CROSS TIE TRAM LOADER LABORATORY-[place] TRAL LABORATORY ABS NRBC 0.0 thou /cu 02/02/2022 [facility] mm 9:21 AM CROSS TIE TRAM LOADER LABORATORY-[facility] TRAL LABORATORY Specimen Anatomical Collection Method Collection Time Receive d Time (Source) Location / / Volume Laterality Blood BLOOD SPECIMEN / Butterfly / 02/02/2022 8:27 AM 02/02 9:01 Unknown Unknown CROSS TIE TRAM LOADER AM CROSS TIE TRAM LOADER Phuc Shipley MD HEMATOLOGY Performing Organization Address City/State/ZIP Code Phon e Number [facility] [address] [place] [address] LABORATORY-CENTRAL 2000 LABORATORY (ABNORMAL) Hepatic function panel AM (02/02/2022 8:26 AM CROSS TIE TRAM LOADER)Only the most recent of6 resultswithin the time period is included. [facility] gist Method Time Signature ALBUMIN 2.6 (L) 3.5 - 5.2 02/02/2022 [facility] g/dL 9:52 AM CROSS TIE TRAM LOADER LABORATORY-[facility] TRAL LABORATORY PROTEIN,TOTAL 5.3 (L) 6.0 - 8.0 02/02/2022 [facility] g/dL 9:52 AM CROSS TIE TRAM LOADER LABORATORY-[place] TRAL LABORATORY GLOBULIN 2.7 2.0 - 3.7 02/02/2022 [facility] g/dL 9:52 AM CROSS TIE TRAM LOADER LABORATORY-[place] TRAL LABORATORY A/G RATIO 1.0 1.0 - 2.0 02/02/2022 [facility] 9:52 AM CROSS TIE TRAM LOADER LABORATORY-[place] TRAL LABORATORY BILIRUBIN,TOTAL 0.4 0.2 - 1.2 02/02/2022 [facility] mg/dL 9:52 AM CROSS TIE TRAM LOADER LABORATORY-[place] TRAL LABORATORY BILIRUBIN,DIRECT 0.3 0.1 - 0.5 02/02/2022 [facility] mg/dL 9:52 AM CROSS TIE TRAM LOADER LABORATORY-[facility] TRAL LABORATORY BILIRUBIN,INDIRE 0.1 (L) 0.2 - 0.8 02/02/[address] [facility] [address] mg/dL 9:52 AM CROSS TIE TRAM LOADER LABORATORY-[facility] TRAL LABORATORY ALK PHOSPHATASE 95 50 - 136 02/02/2022 [facility] IU/L 9:52 AM CROSS TIE TRAM LOADER LABORATORY-[facility] TRAL LABORATORY ALT (SGPT) 24 8 - 45 02/02/2022 [facility] IU/L 9:52 AM CROSS TIE TRAM LOADER LABORATORY-[facility] TRAL LABORATORY AST (SGOT) 13 2 - 40 02/02/2022 [facility] IU/L 9:52 AM CROSS TIE TRAM LOADER LABORATORY-[facility] TRAL LABORATORY Specimen Anatomical Collection Method Collection Time Receive d Time (Source) Location / / Volume Laterality Blood BLOOD SPECIMEN / Butterfly / 02/02/2022 8:26 AM 02/02 9:01 Unknown Unknown CROSS TIE TRAM LOADER AM CROSS TIE TRAM LOADER Phuc Shipley MD CHEMISTRY Performing Organization Address City/State/ZIP Code Phon e Number [place] [facility] [address] [place] [address] LABORATORY-CENTRAL 2000 LABORATORY XR PERCUTANEOUS TUBE REMOVAL (02/01/2022 4:34 PM CROSS TIE TRAM LOADER) Anatomical Region Laterality Modality Abdomen Digital Radiography Specimen (Source) Anatomical Collection Method Collection Time Re ceived Time Location / / Volume Laterality 02/01/2022 4:37 PM CROSS TIE TRAM LOADER Impressions 02/01/2022 4:37 PM CROSS TIE TRAM LOADER Successful removal right upper quadrant percutaneous drain. Dictated by Shayan Duffy MD @ Nov ??7 2021 ??4:37PM (Electronically Signed) ?? Narrative 02/01/2022 4:37 PM CROSS TIE TRAM LOADER For Patients: ??As a result of the [...] provider. If you have questions, please contact [facility] health care provider. HISTORY: Percutaneous drain removal. [...] CT ABDOMEN PELVIS WO (02/01/2022 11:51 AM CROSS TIE TRAM LOADER)Only the most recent of2 results within the time period is included. Anatomical Region Laterality Modality Abdomen, Pelvis, AORTA, LIVER, SPLEEN Co mputed Tomography Specimen (Source) Anatomical Collection Method Collection Time Re ceived Time Location / / Volume Laterality 02/01/2022 3:05 PM CROSS TIE TRAM LOADER Impressions 02/01/2022 3:05 PM CROSS TIE TRAM LOADER 1. Status post cholecystectomy. 2. Increased free air in the gallbladder fossa and tracking along catheter could be due to leak. 3. Moderate bilateral pleural effusions and bibasilar atelectasis/consolidation, increased. 4. Interval placement of percutaneous dr vicente anterior to the liver with resolution of associated fluid collection. Please note that all CT scans at this [facility] use dose modulation, iterative reconstruction, and/or weight-based dosing when appropriate to reduce radiation dose to as low as reasonably achievable. Dictated by Nikita Ortega MD @ 2 3:05:35 PM (Electronically Signed) Narrative 02/01/2022 3:05 PM CROSS TIE TRAM LOADER For Patients: ??As a result of the Cures Act, medical imaging exams and procedure report s are released immediately into your [facility] medical record. ??You may view this report [...] provider. If you have questions, please contact [facility] care provider. INDICATION: Acute abdominal pain. [...] increased. 4. Interval placement of percutaneous dr ain anterior to the liver with resolution of associated fluid collection. Please note that all CT scans at this [facility] use dose modulation, iterative reconstruction, and/or weight-based dosing when appropriate to reduce radiation dose to as low as reasonably achievable. Dictated by Nikita Ortega MD @ 2 3:05:35 PM (Electronically Signed) Mickey Curiel MD CT ECHO COMPLETE W CONTRAST (01/31/2022 1:02 PM CROSS TIE TRAM LOADER) P athologist Signature AORTIC VALVE 11 mmHg MEAN PG EJECTION 77 % FRACTION PEAK TR 3.8 m/s VELOCITY LVEDD 4.4 cm EJECTION > 75% FRACTION Anatomical Region Laterality Modality HEART Ultrasound Specimen (Source) Anatomical Collection Method Collection Time Re ceived Time Location / / Volume Laterality 01/31/2022 12:09 PM CROSS TIE TRAM LOADER Narrative 01/31/2022 2:56 PM CROSS TIE TRAM LOADER ECHOCARDIOGRAM AMAURY CARBAJAL ? Accessi on#: ?? [id number] : ?1965 56 years Study Date: ?? 01/31/2022 12:09:30 PM Gender: F ?BP: ? 183/74 mmHg Height: 180.00 cm ?BSA: ?2.45 m? ?? Weight: 129.00 kg ?Tech: ? EF ? Referring MD: ELIAS WARREN Site: ? [facility] Reading Location: [facility] IP Procedure: [...] . This study was interpreted by an [facility] redited facility. ??Final ?? Procedure Note Dickson Evans MD - 01/31/2022Formatt ing of this note might be different from the original. ECHOCARDIOGRAM AMAURY CARBAJAL : 1965 56 years Study Date: 01/31 12:09:30 PM Gender: F BP: 183/74 mmHg Height: 180.00 cm BSA: 2.45 m? ?? Weight: 129.00 kg Tech: EF Referring MD: ELIAS WARREN Site: [facility] Reading Location: [facility] Procedure: 2D w/ Contrast, Color Doppler and [...] . This study was interpreted by an [facility] redited facility. Final Elias Warren MD ECHO ORD (ABNORMAL) WBC AM (01/31/2022 10:19 AM CROSS TIE TRAM LOADER)Only the most recent of2 results within the time period is included. Analysis Performed At Patho logist Time Signature WHITE BLOOD 14.7 (H) 4.5 - 11.0 01/31/2022 [facility] COUNT thou/cu mm 10:37 AM CROSS TIE TRAM LOADER LABORATORY-[facility] TRAL LABORATORY NRBC 0.0 % 01/31/2022 [facility] 10:37 AM CROSS TIE TRAM LOADER LABORATORY-[facility] TRAL LABORATORY ABS NRBC 0.0 thou /cu 01/31/2022 [facility] mm 10:37 AM CROSS TIE TRAM LOADER LABORATORY-[facility] TRAL LABORATORY Specimen Anatomical Collection Method / Collection Time Recei olga Time (Source) Location / Volume Laterality Blood BLOOD SPECIMEN / Venipuncture / 01/31/2022 10:19 01/31 Unknown Unknown AM CROSS TIE TRAM LOADER 10:31 AM CROSS TIE TRAM LOADER Elias Warren MD HEMATOLOGY Performing Organization Address City/State/ZIP Code Phon e Number [facility] [address] [place] [address] LABORATORY-CENTRAL 2000 LABORATORY XR CHEST 1 VIEW [...] report s are released immediately into your [facility] medical record. ??You may view this report [...] Dictated by Brian Diaz MD @ Nov 2021 2:07PM (Electronically Signed) Mickey Curiel MD GENERAL IMAGING (ABNORMAL) BLOOD GAS,VENOUS (01/30/2022 1:16 PM CDT)Only the most recent of3 resultswithin the time period is included. [facility] gist Method Time Signature PH, VENOUS 7.45 (H) 7.32 - 7.43 01/30/2022 [facility] 1:30 PM CDT LABORATORY-[place] TRAL LABORATORY PCO2, VENOUS 32 (L) 41 - 51 01/30/2022 [facility] mmHg 1:30 PM CDT LABORATORY-[place] TRAL LABORATORY PO2, VENOUS 39 35 - 40 01/30/2022 [facility] mmHg 1:30 PM CDT LABORATORY-[place] TRAL LABORATORY HCO3,VENOUS 22 22 - 29 01/30/2022 [facility] mmol/L 1:30 PM CDT LABORATORY-[place] TRAL LABORATORY BASE EXCESS, -1.0 -2.0 - 3.0 01/30/2022 [facility] VENOUS, POCT 1:30 PM CDT LABORATORY-[place] TRAL LABORATORY O2 SATURATION, 77 (H) 70 - 75 % 01/30/2022 [facility] VENOUS 1:30 PM CDT LABORATORY-[place] TRAL LABORATORY PATIENT 37.0 Degrees C 01/30/2022 [facility] TEMPERATURE 1:30 PM CDT LABORATORY-[place] TRAL LABORATORY Specimen Anatomical Collection Method / Collection Time Recei olga Time (Source) Location / Volume Laterality Blood VENOUS BLOOD Venipuncture / 01/30/2022 1:16 01/30/2022 1:23 SPECIMEN / Unknown Unknown PM CDT PM CDT Mickey Curiel MD CHEMISTRY Performing Organization Address City/State/ZIP Code Phon e Number [facility] [address] [place] [address] [place] [address] LABORATORY-CENTRAL 2000 LABORATORY (ABNORMAL) BILIRUBIN,TOTAL/DIRECT (01/30/2022 1:14 PM CDT) P athologist Signature BILIRUBIN,TOTA 0.8 0.2 - 1.2 01/30/2022 [facility] L mg/dL 1:52 PM CDT LABORATORY-[place] TRAL LABORATORY BILIRUBIN,DIRE 0.6 (H) 0.1 - 0.5 01/30/[address] [facility] [address] mg/dL 1:52 PM CDT LABORATORY-[place] TRAL LABORATORY BILIRUBIN,EBONI 0.2 0.2 - 0.8 01/30/2022 [facility] RECT mg/dL 1:52 PM CDT LABORATORY-[place] TRAL LABORATORY Specimen Anatomical Collection Method / Collection Time Recei olga Time (Source) Location / Volume Laterality Blood BLOOD SPECIMEN / Venipuncture / 01/30/2022 1:14 11/05/ 2022 1:23 Unknown Unknown PM CDT PM CDT Mickey Curiel MD CHEMISTRY Performing Organization Address [facility]/ZIP Code Phon e Number [facility] [address] [place] [id number] LABORATORY-CENTRAL 2000 LABORATORY AMMONIA (01/30/2022 1:14 PM CDT)Only the most recent of2 resultswithin the time period is included. athologist [facility] AMMONIA 26 11 - 35 01/30/2022 [facility] umol/L 2:23 PM CDT LABORATORY-CENTR AL LABORATORY [...] Mickey Curiel MD CHEMISTRY Performing Organization Address City/[facility]/ZIP Code Phon e Number [facility] [address] [place] [id number] LABORATORY-CENTRAL 2000 LABORATORY (ABNORMAL) ALT AM (01/30/2022 4:01 AM CDT) athologist [facility] ALT (SGPT) 52 (H) 8 - 45 IU/L 01/30/2022 [facility] 5:33 AM CDT LABORATORY-[facility] LABORATORY Specimen Anatomical Collection Method Collection Time Receive d Time (Source) Location / / Volume Laterality Blood BLOOD SPECIMEN / Butterfly / 01/30/2022 4:01 AM 01/30 4:33 Unknown Unknown CDT AM CDT Elias Warren MD CHEMISTRY Performing Organization Address City/[facility]/ZIP Code Phon e Number [facility] [address] [place] [address] LABORATORY-CENTRAL 1999 LABORATORY (ABNORMAL) AST AM (01/30/2022 4:01 AM CDT) athologist [facility] AST (SGOT) 52 (H) 2 - 40 IU/L 01/30/2022 [facility] 5:33 AM CDT LABORATORY-CENT RAL LABORATORY Specimen Anatomical Collection Method Collection Time Receive d Time (Source) Location / / Volume Laterality Blood BLOOD SPECIMEN / Butterfly / 01/30/2022 4:01 AM 01/30 4:33 Unknown Unknown CDT AM CDT Elias Warren MD CHEMISTRY Performing Organization Address City/State/ZIP Code Phon e Number [facility] [address] [place] [address] LABORATORY-CENTRAL 2000 LABORATORY SCAN-CARDIAC STRIP (01/28/2022 5:30 PM CDT) Narrative This result has an attachment that is no t available. Scanner OTHER (ABNORMAL) BODY FLUID CULTURE,STAIN (AEROBIC) (01/28/2022 4:16 PM CDT) [facility] Method Time Signature CULTURE RESULT (A) 02/03/2022 [facility] 9:24 AM CROSS TIE TRAM LOADER LABORATORY-[place] TRAL LABORATORY CULTURE 2+ Klebsiella 02/03/2022 [facility] oxytoca 9:24 AM CROSS TIE TRAM LOADER LABORATORY-[place] TRAL LABORATORY GRAM STAIN 2+ RBCs (A) 02/03/2022 [facility] 9:24 AM CROSS TIE TRAM LOADER LABORATORY-[place] TRAL LABORATORY GRAM STAIN 3+ PMNs (A) 02/03/2022 [facility] 9:24 AM CROSS TIE TRAM LOADER LABORATORY-[place] TRAL LABORATORY GRAM STAIN No Epithelial 02/03/2022 [facility] cells (A) 9:24 AM CROSS TIE TRAM LOADER LABORATORY-[facility] TRAL LABORATORY GRAM STAIN 2+ Gram 02/03/2022 [facility] Negative 9:24 AM CROSS TIE TRAM LOADER LABORATORY-[place] Bacilli (A) TRAL LABORATORY Specimen Anatomical [...] Elias Warren MD MICROBIOLOGY Performing Organization Address City/[facility]/ZIP Code Phon e Number [facility] [address] [place] [address] LABORATORY-CENTRAL 1999 LABORATORY (ABNORMAL) ANAEROBIC CULTURE (01/28/2022 4:16 PM CDT) [facility] CULTURE RESULT (A) 02/03/2022 [facility] 8:12 AM CROSS TIE TRAM LOADER LABORATORY-[place] TRAL LABORATORY CULTURE 1+ Gram 02/03/2022 [facility] negative 8:12 AM CROSS TIE TRAM LOADER LABORATORY-[place] bacilli TRAL LABORATORY Comment: Non-viable for identification Specimen Anatomical Collection Method Collection Time Receive d Time (Source) Location / / Volume Laterality Other SPECIMEN FROM Non-Blood / 01/28/2022 4:16 PM 01/29/20 22 4:16 ABSCESS / Unknown Unknown CDT PM CDT Elias Warren MD MICROBIOLOGY Performing Organization Address [facility]/ZIP Code Phon e Number [facility] [address] [place] [address] LABORATORY-CENTRAL [address] DRAIN PERITONEAL RETROPERITONEAL INC GUIDE (01/28/2022 3:32 PM CDT) Anatomical Region Laterality Modality Abdomen Computed Tomography, Other Specimen (Source) Anatomical Collection Method Collection Time Re ceived Time Location / / Volume Laterality 01/28/2022 3:57 PM CDT Impressions 01/28/2022 3:57 PM CDT 1. Status post CT-guided placement of 14-Argentine pigtail catheter into 9 x 4 cm right upper quadrant fluid collection. 50 cc of cloudy fluid obtained and sent to the lab. 2. No immediate complications. 3. Moderate sedation planned and used. Please note that all CT scans at this [facility] use dose modulation, iterative reconstruction, and/or weight-based dosing when appropriate to reduce radiation dose to as low as reasonably achievable. Dictated by Curtis Black MD @ 01/28/2022 3:57:30 PM (Electronically Signed) Narrative 01/28/2022 3:57 PM CDT For Patients: ??As a result of the Century Cures Act, medical imaging exams and procedure report s are released immediately into your [facility] medical record. ??You may view this report [...] monitored by a trained, dedicated nurse. The [facility] who performed the procedure provided 34 minutes of intra-service time with the patient. The patient was placed in supine positio n and localizing images were obtained. Anterior approach was chosen. The site was marked, and then prepped and draped in sterile fashion. [place] protocol was followed. TIME-OU T conducted just [...] 14-Frenc h dilators. Over the wire, a 14-Argentine pigtail catheter was placed with position verified [...] provider. If you have questions, please contact [facility] health care provider. INDICATION: 6 x 4 [...] then prepped and draped in sterile fashion. [place] protocol was followed. TIME-OU T conducted just [...] The tract was dilated with 10 and 14-Argentine dilators. Over the wire, a 14-Argentine pigtail catheter was placed with position verified by CT. The catheter was locked and fixed in position. The catheter was attached to a Norbert-Close drainage bag after 50 cc of cloudy fluid was obta ined and sent to the lab. No immediate complications. EBL less than 10 cc. IMPRESSION: 1. Status post CT-guided placement of 14 -Argentine pigtail catheter into 9 x 4 cm right upper quadrant fluid collection. 50 cc of cloudy fluid obtained and sent to the lab. 2. No immediate complications. 3. Moderate sedation planned and used. Please note that all CT scans at this [facility] use dose modulation, iterative reconstruction, and/or [...] Signature MAGNESIUM 1.7 1.6 - 2.6 01/28/2022 [facility] mg/dL 9:55 AM CDT LABORATORY-CENTR AL LABORATORY Specimen Anatomical Collection Method / Collection Time Recei olga Time (Source) Location / Volume Laterality Blood BLOOD SPECIMEN / Venipuncture / 01/28/2022 9:03 2021 9:16 Unknown Unknown AM CDT AM CDT Elias Warren MD CHEMISTRY Performing Organization Address City/State/ZIP Code Phon e Number [facility] [address] [place], [place] [address] [address] LABORATORY-CENTRAL 1999 LABORATORY SCAN-CARDIAC STRIP (01/27/2022 3:00 PM CDT) Narrative This result has an attachment that is no t available. Scanner OTHER (ABNORMAL) CK TOTAL (01/27/2022 8:46 AM CDT)Only the most recent of4 results within the time period is included. athologist Signature CK,TOTAL 1,405 (H) 29 - 168 01/27/2022 [facility] IU/L 9:48 AM CDT LABORATORY-CENT RAL LABORATORY Specimen Anatomical Collection Method Collection Time Receive d Time (Source) Location / / Volume Laterality Blood BLOOD SPECIMEN / Butterfly / 01/27/2022 8:46 AM 01/27 9:06 Unknown Unknown CDT AM CDT Angela Lorrie Walker [employer] IN[employer] CHEMISTRY Performing Organization Address City/State/ZIP Code [facility] [address] [place] [address] LABORATORY-CENTRAL 2000 LABORATORY SCAN-CARDIAC STRIP (01/27/2022 8:08 AM CDT) Narrative This result has an attachment that is no t available. Scanner OTHER (ABNORMAL) COMPREHENSIVE URINE DRUG SCREEN (01/27/2022 2:08 AM CDT) [facility] Method Time Signature ACETAMINOPHEN POS (A) <=10 01/27/2022 [place] URINE mcg/mL 2:57 PM [facility] AMPHETAMINE URINE NEG <=500 01/27/2022 [place] ng/mL 2:57 PM [facility] BARBITURATE URINE NEG <=200 01/27/2022 [place] ng/mL 2:57 PM [facility] BENZODIAZEPINE NEG <=100 01/27/2022 [place] URINE ng/mL 2:57 PM [facility] BUPRENORPHRINE NEG <=5 ng/mL 01/27/2022 [place] URINE 2:57 PM [facility] COCAINE METAB NEG <=300 01/27/2022 [place] [facility]INE ng/mL 2:57 PM [facility] ETHANOL URINE NEG <=10 01/27/2022 [place] mg/dL 2:57 PM [facility] FENTANYL URINE NEG <=4 ng/mL 01/27/2022 [place] 2:57 PM [facility] METHADONE URINE NEG <=300 01/27/2022 [place] ng/mL 2:57 PM [facility] OPIATES URINE NEG <=300 01/27/2022 [place] ng/mL 2:57 PM [facility] OXYCODONE URINE POS (A) <=100 01/27/2022 [place] ng/mL 2:57 PM [facility] PCP URINE NEG <=25 01/27/2022 [place] ng/mL 2:57 PM [facility] SALICYLATE URINE NEG <=10 01/27/2022 [place] mg/dL 2:57 PM CDT [facility] THC 50 URINE NEG <=50 01/27/2022 [place] ng/mL 2:57 PM [facility] MASS SPECTROMETRY See Below 01/27/2022 [place] URINE 2:57 PM [facility] Comment: Acetaminophen, Citalopram, Ephe drine/Pseudoephedrine, Lidocaine, Lidocaine metabolite, Topiramate, and Topiramate m etabolite present. Specimen Anatomical Collection Method Collection Time Receive d Time (Source) Location / / Volume Laterality Urine URINE SPECIMEN / Non-Blood / 01/27/2022 2:08 AM 01/27 2:16 Unknown Unknown CDT AM CDT Narrative [facility] - 022 2:57 PM CDT Release to patient->Immediate Angela Walker [employer] URINE Performing Organization Address City/State/ZIP Code Phon e Number [facility] [address] [place], [place] [id number] [place] [address] MAIL CODE 812 (ABNORMAL) PROCALCITONIN (01/26/2022 4:52 PM CDT)Only the most recent of2 resultswithin the time period is included. [facility] gist Method Time Signature PROCALCITONIN 27.53 (H) <0.50 01/26/2022 [facility] ng/ml 6:21 PM CDT LABORATORY-[facility] TRAL LABORATORY Specimen Anatomical Collection Method Collection Time Receive d Time (Source) Location / / Volume Laterality Blood BLOOD SPECIMEN / Butterfly / 01/26/2022 4:52 PM 01/26 4:59 Unknown Unknown CDT PM CDT Narrative [facility] LABORATORY-CENTRAL LABORAT ORY - 01/26/2022 6:21 PM [...] concentrations <2.0 ng/mL are obtained. Angela Walker [employer] SEND OUTS Performing Organization Address City/[facility] Code Phon e Number [facility] [address] [place] [address] LABORATORY-CENTRAL 2000 LABORATORY (ABNORMAL) TSH FOR ADD ON (01/26/2022 4:52 PM CDT) P athologist Signature TSH 0.18 (L) 0.35 - 4.94 01/26/2022 [facility] uIU/mL 6:09 PM CDT LABORATORY-[facility] LABORATORY Specimen Anatomical Collection Method Collection Time Receive d Time (Source) Location / / Volume Laterality Blood BLOOD SPECIMEN / Butterfly / 01/26/2022 4:52 PM 01/26 4:59 Unknown Unknown CDT PM CDT Narrative [facility] LABORATORY-CENTRAL LABORAT ORY - 01/26/2022 6:09 PM CDT In Adults, TSH values between 5.00 and 10.00 uIU/ml do not necessarily indicate the presence of Hyp othyroidism. Correlation with clinical findings such as presence of goiter and/or Thyroperoxidase (TPO) Antibody ma y be helpful. For more information please refer to COBY 20 ; 291: [phone]. Mariolu Regan DO CHEMISTRY Performing Organization Address City/State/ZIP Code Phon e Number [facility] [address] [place] [address] LABORATORY-CENTRAL 2000 LABORATORY T4,FREE (01/26/2022 4:52 PM CDT) athologist Signature T4,FREE 0.86 0.70 - 1.80 01/26/2022 [facility] ng/dL 6:09 PM CDT LABORATORY-CENTR AL LABORATORY Specimen Anatomical Collection Method Collection Time Receive d Time (Source) Location / / Volume Laterality Blood BLOOD SPECIMEN / [facility] / 01/26/2022 4:52 PM 01/26 4:59 Unknown Unknown CDT PM CDT Marilou Shereen DO CHEMISTRY Performing Organization Address City/State/ZIP Code Phon e Number [facility] [address] [place] [address] LABORATORY-CENTRAL 1999 LABORATORY CALCIUM [facility]IZ[facility] DRAW ONLY (01/26/2022 4:52 PM CDT)Only the most recent of3 resultswithin the time period is included. athologist [facility] CALCIUM,IONIZE 1.22 1.15 - 01/26/2022 [facility] D 1.27 5:04 PM CDT LABORATORY-CENT mmol/L RAL LABORATORY Specimen Anatomical Collection Method Collection Time Receive d Time (Source) Location / / Volume Laterality Blood BLOOD SPECIMEN / [facility] / 01/26/2022 4:52 PM 01/26 4:59 Unknown Unknown CDT PM CDT Hedy Milligan DO CHEMISTRY Performing Organization Address City/State/ZIP Code Phon e Number [facility] [address] [place] [phone] LABORATORY-CENTRAL [address] HEAD BRAIN WO [...] note that all CT scans at this [facility] use dose modulation, iterative reconstruction, and/or weight-based dosing when appropriate to reduce radiation dose to as low as reasonably achievable. Dictated by Ramila Patten MD @ 01/26/2022 1 1:00:42 AM (Electronically Signed) Narrative 01/26/2022 11:00 AM CDT For Patients: ??As a result of the Cures Act, medical imaging exams and procedure report s are released immediately into your [facility] [employer] medical record. ??You may view this report [...] note that all CT scans at this [facility] use dose modulation, iterative reconstruction, and/or weight-based dosing when appropriate to reduce radiation dose to as low as reasonably achievable. Dictated by Ramila Patten MD @ 01/26/2022 1 1:00:42 AM (Electronically Signed) Angela Walker FIGHTING VEHICLE INFANTRYMAN CT SCAN-CARDIAC STRIP (01/26/2022 7:21 AM CDT) [...] 4:23 Unknown Unknown CDT AM CDT Narrative [facility] - 01/27/2022 2:05 PM CDT ? (<5.7%) ?Normal ? (5.7% to 6.4%) ? Indicates pr ediabetes ? (>=6.5%) ? Confirms diabetes Falsely low levels may be seen with: Recent Transfusion, Recent Significant B lood Loss, Hemolytic Diseases, or Falsely elevated levels may be seen with : Untreated Anemias, Splenectomy Naveen Marcial MD CHEMISTRY Performing Organization Address City/State/ZIP Code Phon e Number [facility] [employer] INTERNAL ZIP [place], [place] [phone] [address] [facility] ,SERUM (01/26/2022 4:17 AM CDT) Analysis Performed At [facility] Time Signature ,SERU Negative Negative 01/26/2022 [facility] M 10:47 AM CDT LABORATORY-ALLEN TRAL LABORATORY Specimen Anatomical Collection Method Collection Time Receive d Time (Source) Location / / Volume Laterality Blood BLOOD SPECIMEN / [facility] / 01/26/2022 4:17 AM 01/26 4:23 Unknown Unknown CDT AM CDT Quita MIRAMONTES CHEMISTRY Performing Organization Address City/[facility]/ZIP Code Phon e Number [facility] [address] [place] [address] LABORATORY-CENTRAL 2000 LABORATORY (ABNORMAL) LIPASE (01/26/2022 4:17 AM CDT)Only the most recent of2 resultswithin the time period is included. P athologist Signature LIPASE <5.0 (L) 8.0 - 78.0 01/26/2022 [facility] IU/L 10:36 AM CDT LABORATORY-CENT RAL LABORATORY Specimen Anatomical Collection Method Collection Time Receive d Time (Source) Location / / Volume Laterality Blood BLOOD SPECIMEN / [facility] / 01/26/2022 4:17 AM 01/26 4:23 Unknown Unknown CDT AM CDT Quita MIRAMONTES CHEMISTRY Performing Organization Address City/[facility]/ZIP Code Phon e Number [facility] [address] [facility] [place] [address] LABORATORY-CENTRAL 2000 LABORATORY (ABNORMAL) C-REACTIVE PROTEIN (01/25/2022 9:40 PM CDT) Patholo gist Method Time Signature C-REACTIVE 42.31 (H) <0.50 01/25/2022 [facility] PROTEIN mg/dL 11:23 PM CDT LABORATORY-ALLEN TRAL LABORATORY Specimen Anatomical Collection Method / Collection Time Recei olga Time (Source) Location / Volume Laterality Blood BLOOD SPECIMEN / Venipuncture / 01/25/2022 9:40 2021 9:53 Unknown Unknown PM CDT PM CDT Brando Molina [facility] CHEMISTRY Performing Organization Address City/State/ZIP Code Phon e Number [facility] [address] [place] [address] LABORATORY-CENTRAL 1999 LABORATORY (ABNORMAL) Arterial Blood Gas (01/25/2022 8:13 PM CDT)Only the most recent of2 resultswithin the time period is included. Analysis Performed At Patho logist Time Signature PH, ARTERIAL 7.34 (L) 7.35 - 01/25/2022 [facility] 7.45 8:28 PM CDT LABORATORY-ALLEN TRAL LABORATORY PCO2, ARTERIAL 39 32 - 45 01/25/2022 [facility] mmHg 8:28 PM CDT LABORATORY-ALLEN TRAL LABORATORY PO2, ARTERIAL 393 (H) 83 - 108 01/25/2022 [facility] mmHg 8:28 PM CDT LABORATORY-ALLEN TRAL LABORATORY HCO3, ARTERIAL 21 21 - 28 01/25/2022 [facility] mmol/L 8:28 PM CDT LABORATORY-ALLEN TRAL LABORATORY BASE EXCESS, -4.0 (L) -2.0 - 3.0 01/25/2022 [facility] ARTERIAL 8:28 PM CDT LABORATORY-ALLEN TRAL LABORATORY O2 SATURATION, 100 (H) 94 - 98 % 01/25/2022 [facility] ARTERIAL 8:28 PM CDT LABORATORY-ALLEN TRAL LABORATORY INSPIRED O2 100 01/25/2022 [facility] 8:28 PM CDT LABORATORY-ALLEN TRAL LABORATORY Comment: Unit of Measure: Liters (L) if <=20; Percent (%) if >20 PATIENT TEMPERATURE 38.2 Degrees C 01/25/2022 8:28 PM [facility] CDT LABORATORY-CENTRAL LABORATORY Specimen Anatomical Collection Method / Collection Time Recei olga Time (Source) Location / Volume Laterality Blood ARTERIAL BLOOD Non-Lab 01/25/2022 8:13 01/25/2022 8:21 SPECIMEN / Unknown Venipuncture / PM CDT PM CDT Unknown Nathaniel Lima MD CHEMISTRY Performing Organization Address City/State/ZIP Code Phon e Number [facility] [address] [place] [address] LABORATORY-CENTRAL 2000 LABORATORY XR ABDOMEN 2 VIEWS PORTABLE (01/25/2022 [...] s are released immediately into your [employer] [employer] medical record. ??You may view this report [...] NOW QTc 477 ms BEYOND NOW P [place] 10 degrees BEYOND NOW R [place] 66 degrees BEYOND NOW T [place] 12 degrees BEYOND NOW Specimen Anatomical Collection Method Collection Time Receive d Time (Source) Location / / Volume Laterality 01/25/2022 6:34 AM 5:41 CDT PM CDT Nathaniel Lima MD EKG ORD Performing Organization Address City/State/ZIP Code Phon e Number [facility] NOW [place], [place] XR ERCP BILIARY ONLY (01/25/2022 4:35 [...] Eight images obtained during ERCP. 1 min eva 47 seconds of fluoroscopy time. Procedure Note Nikita Ortega MD - 01/25/2022Fo rmatting of this note might be different from the original. For Patients: As a result of the Cures Act, medical imaging exams and procedure reports are released immediately into your electronic medical record. You may view this report before your referring provider. If you have questions, please contact [facility] health care provider. INDICATION: Cholangitis. TECHNIQUE: Eight images obtained during ERCP. 1 min eva 47 seconds of fluoroscopy time. IMPRESSION: Guidewire [...] attachment that is no t available. Transcriptions Go, Jonathan Payne MD - 01/25/2022 4:33 AM CDT [facility] Patient Name: Amaury Carbajal Procedure José e: 01/25/2022 Gender: Female Date of : 1965 Admit Type: Inpatient Procedure: ERCP Proceduralist: Jonathan Donaldson MD - [facility] [place] Indications/Pre-Op Diagnosis: Suspected ascending cholangitis Medications: General Anesthesia Procedure Description: Risk of bleeding, infection, perforatio n, pancreatitis, need for surgery, remote chance of and alt ernatives were discussed, and the patient gave informed consent. The [id number] endoscope was pas sed through the mouth, and advanced to the duodenum and used to in ject contrast into the bile duct. The ERCP was accomplished with ease. Th e patient tolerated the procedure well. Complications: No immediate complication s. Estimated Blood Loss & Specimen: Estimated blood loss: none. Specimen collected: None Findings: A infectious waste technician film of the abdomen was obtaine [...] mm biliary sphincterotomy was made with a Dream[employer] e sphincterotome using ERBE electrocautery. There was [...] WITH AUTO DIFFERENTIAL (01/25/2022 2:48 AM CDT) [facility] Method Time Signature WHITE BLOOD 12.6 (H) 4.5 - 01/25/2022 [facility] COUNT 11.0 3:17 AM CDT LABORATORY-ALLEN thou/cu TRAL mm LABORATORY RED BLOOD COUNT 3.41 (L) 4.00 - 01/25/2022 [facility] 5.20 3:17 AM CDT LABORATORY-ALLEN mil/cu mm TRAL LABORATORY HEMOGLOBIN 10.3 (L) 12.0 - 01/25/2022 [facility] 16.0 g/dL 3:17 AM CDT LABORATORY-ALLEN TRAL LABORATORY HEMATOCRIT 31.7 (L) 33.0 - 01/25/2022 [facility] 51.0 % 3:17 AM CDT LABORATORY-ALLEN TRAL LABORATORY MCV 93 80 - 100 01/25/2022 [facility] fL 3:17 AM CDT LABORATORY-ALLEN TRAL LABORATORY MCH 30.2 26.0 - 01/25/2022 [facility] 34.0 pg 3:17 AM CDT LABORATORY-ALLEN TRAL LABORATORY MCHC 32.5 32.0 - 01/25/2022 [facility] 36.0 g/dL 3:17 AM CDT LABORATORY-ALLEN TRAL LABORATORY RDW 13.1 11.5 - 01/25/2022 [facility] 15.5 % 3:17 AM CDT LABORATORY-ALLEN TRAL LABORATORY PLATELET COUNT 256 140 - 440 01/25/2022 [facility] thou/cu 3:17 AM CDT LABORATORY-ALLEN mm TRAL LABORATORY MPV 10.6 6.5 - 01/25/2022 [facility] 11.0 fL 3:17 AM CDT LABORATORY-ALLEN TRAL LABORATORY NRBC 0.0 % 01/25/2022 [facility] 3:17 AM CDT LABORATORY-ALLEN TRAL LABORATORY ABS NRBC 0.0 thou /cu 01/25/2022 [facility] mm 3:17 AM CDT LABORATORY-ALLEN TRAL LABORATORY % NEUT 80.8 % 01/25/2022 [facility] 3:17 AM CDT LABORATORY-ALLEN TRAL LABORATORY % LYMPH 8.4 % 01/25/2022 [facility] 3:17 AM CDT LABORATORY-ALLEN TRAL LABORATORY % MONO 8.1 % 01/25/2022 [facility] 3:17 AM CDT LABORATORY-ALLEN TRAL LABORATORY % EOS 1.4 % 01/25/2022 [facility] 3:17 AM CDT LABORATORY-ALLEN TRAL LABORATORY % BASO 0.5 % 01/25/2022 [facility] 3:17 AM CDT LABORATORY-ALLEN TRAL LABORATORY % IMMATURE GRAN 0.8 % 01/25/2022 [facility] (METAS,MYELOS,IL 3:17 AM CDT LABORATORY- ALLEN OS) TRAL LABORATORY ABSOLUTE 10.2 (H) 1.7 - 7.0 01/25/2022 [facility] NEUTROPHILS thou/cu 3:17 AM CDT LABORATORY-ALLEN mm TRAL LABORATORY ABSOLUTE 1.1 0.9 - 2.9 01/25/2022 [facility] LYMPHOCYTES thou/cu 3:17 AM CDT LABORATORY-ALLEN mm TRAL LABORATORY ABSOLUTE 1.0 (H) <0.9 01/25/2022 [facility] MONOCYTES thou/cu 3:17 AM CDT LABORATORY-ALLEN mm TRAL LABORATORY ABSOLUTE 0.2 <0.5 01/25/2022 [facility] EOSINOPHILS thou/cu 3:17 AM CDT LABORATORY-ALLEN mm TRAL LABORATORY ABSOLUTE 0.1 <0.3 01/25/2022 [facility] BASOPHILS thou/cu 3:17 AM CDT LABORATORY-ALLEN mm TRAL LABORATORY ABSOLUTE 0.1 <0.3 01/25/2022 [facility] IMMATURE thou/cu 3:17 AM CDT LABORATORY-ALLEN GRANULOCYTES(MET mm TRAL ,MYELOS,PROS) LABORATORY Specimen Anatomical Collection Method Collection Time Receive d Time (Source) Location / / Volume Laterality Blood BLOOD SPECIMEN / IV Start / Unknown 01/25/2022 2:48 AM 01/25/2022 3:05 Unknown CDT AM CDT Nathaniel Lima MD HEMATOLOGY Performing Organization Address [facility] e Number [facility] [address] [place] [phone] LABORATORY-CENTRAL 2000 LABORATORY LACTATE VENOUS (01/25/2022 2:48 AM CDT) athologist Signature LACTATE,VENOUS 1.5 0.5 - 2.0 01/25/2022 [facility] mmol/L 3:25 AM CDT LABORATORY-[facility] LABORATORY Specimen Anatomical Collection Method Collection Time Receive d Time (Source) Location / / Volume Laterality Blood BLOOD SPECIMEN / IV Start / Unknown 01/25/2022 2:48 AM 01/25/2022 3:07 Unknown CDT AM CDT Nathaniel Lima MD CHEMISTRY Performing Organization Address City/[facility] e Number [facility] [address] [place] [phone] LABORATORY-CENTRAL 2000 LABORATORY Blood Culture (01/25/2022 2:48 AM CDT)Only the most recent of2 resultswithin the time period is included. athologist Signature CULTURE No Growth. 01/30/2022 [facility] 5:00 AM CDT LABORATORY-CENT RAL LABORATORY Specimen Anatomical Collection Method Collection Time Receive d Time (Source) Location / / Volume Laterality Blood BLOOD SPECIMEN / IV Start / Unknown 01/25/2022 2:48 AM 01/25/2022 3:05 Unknown CDT AM CDT Nathaniel Lima MD MICROBIOLOGY Performing Organization Address City/State/ZIP Code Phon e Number [facility] [address] [place] [address] LABORATORY-CENTRAL 2000 LABORATORY TYPE & SCREEN (01/25/2022 2:48 AM CDT) Patholo gist Method Time Signature ABORH A Rh 01/25/2022 [facility] Positive 5:05 AM CDT LAB-CENTRAL LAB BLOOD BANK ANTIBODY Negative Negative 01/25/2022 [facility] SCREEN 5:05 AM CDT LAB-CENTRAL LAB BLOOD BANK SPECIMEN 01/28/22 01/25/2022 [facility] EXPIRATION 23:59 5:05 AM CDT LAB-CENTRAL DATE/TIME LAB BLOOD BANK Specimen Anatomical Collection Method Collection Time Receive d Time (Source) Location / / Volume Laterality Blood BLOOD SPECIMEN / IV Start / Unknown 01/25/2022 2:48 AM 01/25/2022 3:05 Unknown CDT AM CDT Nathaniel Lima MD BLOOD BANK Performing Organization Address City/State/ZIP Code Phon e Number [facility] LAB-CENTRAL LAB [address] [place] [phone] BLOOD BANK (ABNORMAL) Protime - INR (01/25/2022 2:48 AM CDT) P athologist Signature INR 1.2 <1.3 01/25/2022 [facility] 3:25 AM CDT LABORATORY-CENT RAL LABORATORY PROTIME 14.4 (H) 12.0 - 13.8 01/25/2022 [facility] sec 3:25 AM CDT LABORATORY-CENT RAL LABORATORY Specimen Anatomical Collection Method Collection Time Receive d Time (Source) Location / / Volume Laterality Blood BLOOD SPECIMEN / IV Start / Unknown 01/25/2022 2:48 AM 01/25/2022 3:06 Unknown CDT AM CDT Narrative [facility] LABORATORY-CENTRAL LABORAT ORY - 01/25/2022 3:25 AM [...] Nathaniel Lima MD HEMATOLOGY Performing Organization Address [facility] Phon e Number [facility] [address] [place] [phone] LABORATORY-CENTRAL 2000 LABORATORY Phosphorus (01/25/2022 2:48 AM CDT) P athologist Signature PHOSPHORUS 4.6 2.3 - 4.7 01/25/2022 [facility] mg/dL 3:28 AM CDT LABORATORY-[facility] LABORATORY Specimen Anatomical Collection Method Collection Time Receive d Time (Source) Location / / Volume Laterality Blood BLOOD SPECIMEN / IV Start / Unknown 01/25/2022 2:48 AM 01/25/2022 3:06 Unknown CDT AM CDT Nathaniel Lima MD CHEMISTRY Performing Organization Address [facility] Phon e Number [facility] [address] [place] [phone] LABORATORY-CENTRAL 2000 LABORATORY (ABNORMAL) COMP METABOLIC PANEL (01/25/2022 2:48 AM CDT) Patholo gist Method Time Signature SODIUM 134 (L) 135 - 145 01/25/2022 [facility] mmol/L 3:30 AM CDT LABORATORY-ALLEN TRAL LABORATORY POTASSIUM 4.2 3.5 - 5.0 01/25/2022 [facility] mmol/L 3:30 AM CDT LABORATORY-ALLEN TRAL LABORATORY CHLORIDE 105 98 - 110 01/25/2022 [facility] mmol/L 3:30 AM CDT LABORATORY-ALLEN TRAL LABORATORY CO2,TOTAL 22 21 - 31 01/25/2022 [facility] mmol/L 3:30 AM CDT LABORATORY-ALLEN TRAL LABORATORY ANION GAP 7 5 - 18 01/25/2022 [facility] 3:30 AM CDT LABORATORY-ALLEN TRAL LABORATORY GLUCOSE 152 (H) 65 - 100 01/25/2022 [facility] mg/dL 3:30 AM CDT LABORATORY-ALLEN TRAL LABORATORY CALCIUM 8.6 8.5 - 01/25/2022 [facility] 10.5 3:30 AM CDT LABORATORY-ALLEN mg/dL TRAL LABORATORY BUN 68 (H) 8 - 25 01/25/2022 [facility] mg/dL 3:30 AM CDT LABORATORY-ALLEN TRAL LABORATORY CREATININE 4.54 (H) 0.57 - 01/25/2022 [facility] 1.11 3:30 AM CDT LABORATORY-ALLEN mg/dL TRAL LABORATORY BUN/CREAT RATIO 15 10 - 20 01/25/2022 [facility] 3:30 AM CDT LABORATORY-ALLEN TRAL LABORATORY ALBUMIN 3.0 (L) 3.5 - 5.2 01/25/2022 [facility] g/dL 3:30 AM CDT LABORATORY-ALLEN TRAL LABORATORY PROTEIN,TOTAL 6.3 6.0 - 8.0 01/25/2022 [facility] g/dL 3:30 AM CDT LABORATORY-ALLEN TRAL LABORATORY GLOBULIN 3.3 2.0 - 3.7 01/25/2022 [facility] g/dL 3:30 AM CDT LABORATORY-ALLEN TRAL LABORATORY A/G RATIO 0.9 (L) 1.0 - 2.0 01/25/2022 [facility] 3:30 AM CDT LABORATORY-ALLEN TRAL LABORATORY BILIRUBIN,TOTAL 0.7 0.2 - 1.2 01/25/2022 [facility] mg/dL 3:30 AM CDT LABORATORY-ALLEN TRAL LABORATORY ALK PHOSPHATASE 97 50 - 136 01/25/2022 [facility] IU/L 3:30 AM CDT LABORATORY-ALLEN TRAL LABORATORY ALT (SGPT) 40 8 - 45 01/25/2022 [facility] IU/L 3:30 AM CDT LABORATORY-ALLEN TRAL LABORATORY AST (SGOT) 82 (H) 2 - 40 01/25/2022 [facility] IU/L 3:30 AM CDT LABORATORY-ALLEN TRAL LABORATORY eGFR 11 (L) >90 01/25/2022 [facility] mL/min/1. 3:30 AM CDT LABORATORY-ALLEN 73m2 TRAL [...] Nathaniel Lima MD CHEMISTRY Performing Organization Address [facility] e Number [facility] [address] [place] [phone] LABORATORY-CENTRAL 1999 LABORATORY (ABNORMAL) MRSA/SA PCR (01/25/2022 2:03 AM CDT) [facility] Method Time Signature MRSA DNA PCR Negative Negative 01/25/2022 [facility] 3:50 AM CDT LABORATORY-CE NTRAL LABORATORY STAPHYLOCOCCUS Positive Negative 01/25/2022 [facility] AUREUS PCR (A) 3:50 AM CDT LABORATORY-CE NTRDC LABORATORY Specimen Anatomical Collection Method Collection Time Receive d Time (Source) Location / / Volume Laterality Other SPECIMEN FROM Non-Blood / 01/25/2022 2:03 AM 01/26/20 22 2:09 INTERNAL NOSE / Unknown CDT AM CDT Unknown Narrative [facility] LABORATORY-CENTRAL LABORAT ORY - 01/25/2022 3:50 AM CDT S. aureus detected; NOT MRSA. Test result does not preclude MRSA nasal colonization. False negative for MRSA could be obtained if MRSA present in the sample is below threshold of detection. Nathaniel Lima MD MICROBIOLOGY Performing Organization Address [facility] e Number [facility] [address] [place] [phone] LABORATORY-CENTRAL 1999 LABORATORY (ABNORMAL) URINALYSIS MICROSCOPIC (01/25/2022 2:03 AM CDT) [facility] Method Time Signature RBC 11-25 (A) 0-2, None 01/25/2022 [facility] Seen /HPF 2:59 AM CDT LABORATORY-ALLEN TRAL LABORATORY WBC 6-10 (A) 0-2, 3-5, 01/25/2022 [facility] None Seen 2:59 AM CDT LABORATORY-ALLEN /HPF TRAL LABORATORY BACTERIA Rare None 01/25/2022 [facility] Seen, 2:59 AM CDT LABORATORY-ALLEN Rare, Few TRAL Bacteria/ LABORATORY HPF EPITHELIAL Few None 01/25/2022 [facility] CELLS Seen, Few 2:59 AM CDT LABORATORY-ALLEN Epi/HPF TRAL LABORATORY HYALINE CASTS 3-5 0-2, 3-5 01/25/2022 [facility] /LPF 2:59 AM CDT LABORATORY-[facility] TRAL LABORATORY Specimen Anatomical Collection Method Collection Time Receive d Time (Source) Location / / Volume Laterality Urine URINE SPECIMEN / Non-Blood / 01/25/2022 2:03 AM 01/25 2:09 Unknown Unknown CDT AM CDT Nathaniel Lima MD URINE Performing Organization Address City/State/ZIP Code Phon e Number [facility] [address] [place] [address] LABORATORY-CENTRAL 2000 LABORATORY SODIUM,RANDOM URINE (01/25/2022 2:03 AM CDT) athologist Signature SODIUM,RANDOM <20 mmol/L 01/25/2022 [facility] URINE 6:42 AM CDT LABORATORY-CENT RAL LABORATORY Specimen Anatomical Collection Method Collection Time Receive d Time (Source) Location / / Volume Laterality Urine URINE SPECIMEN / Non-Blood / 01/25/2022 2:03 AM 01/25 2:09 Unknown Unknown CDT AM CDT Nathaniel Lima MD URINE Performing Organization Address City/[facility]/ZIP Code Phon e Number [facility] [address] [place] [address] LABORATORY-CENTRAL 2000 LABORATORY CREATININE,RANDOM URINE (01/25/2022 2:03 AM CDT) athologist Signature CREAT,RANDOM 33.7 mg/dL 01/25/2022 [facility] URINE 6:06 AM CDT LABORATORY-CENT RAL LABORATORY [...] Organization Address City/State/ZIP Code Phon e Number [facility] [address] [place] [address] LABORATORY-CENTRAL 1999 LABORATORY (ABNORMAL) Urinalysis W Reflex Microscopic if Positive (01/25/2022 2:03 AM CDT) [facility] Method Time Signature COLOR Yellow Yellow Color 01/25/2022 [facility] 2:59 AM CDT LABORATORY-CE NTRAL LABORATORY CLARITY Cloudy (A) Clear 01/25/2022 [facility] Clarity 2:59 AM CDT LABORATORY-CE NTRAL LABORATORY SPECIFIC 1.015 1.010, 01/25/2022 [facility] GRAVITY,URINE 1.015, 2:59 AM CDT LABORATORY-CE 1.020, 1.025 NTRAL LABORATORY PH,URINE 5.5 6.0, 7.0, 01/25/2022 [facility] 8.0, 5.5, 2:59 AM CDT LABORATORY-CE 6.5, 7.5, NTRAL 8.5 LABORATORY UROBILINOGEN, Normal Normal EU/dl [facility] 2[facility]59 AM [facility]T LAB[facility]-CE NTRAL LABORATORY PROTEIN, 30 (A) Negative 01/25/2022 [facility] URINE mg/dL 2:59 AM CDT LABORATORY-CE NTRAL LABORATORY GLUCOSE, Negative Negative 01/25/2022 [facility] URINE mg/dL 2:59 AM CDT LABORATORY-CE NTRAL LABORATORY KETONES,URINE Negative Negative 01/25/2022 [facility] mg/dL 2:59 AM CDT LABORATORY-CE NTRAL LABORATORY BILIRUBIN,URI Negative Negative 01/25/2022 [facility] NE 2:59 AM CDT LABORATORY-CE NTRAL LABORATORY OCCULT Large (A) Negative 01/25/2022 [facility] BLOOD,URINE 2:59 AM CDT LABORATORY-CE NTRAL LABORATORY NITRITE Negative Negative 01/25/2022 [facility] 2:59 AM CDT LABORATORY-CE NTRAL LABORATORY LEUKOCYTE Trace (A) Negative 01/25/2022 [facility] ESTERASE 2:59 AM CDT LABORATORY-CE NTRAL LABORATORY Specimen Anatomical Collection Method Collection Time Receive d Time (Source) Location / / Volume Laterality Urine URINE SPECIMEN / Non-Blood / 01/25/2022 2:03 AM 01/25 2:09 Unknown Unknown CDT AM CDT Nathaniel Lima MD URINE Performing Organization Address City/State/ZIP Code Phon e Number [facility] [address] [place] [address] [facility]-CENTRAL 2000 LABORATORY PATH TISSUE EXAM (01/21/2022 3:55 PM CDT) Component Value Ref Test Analysis Performed At [facility] gist Range Method Time Signature Case Report Pathology Report ?Case: [id number] ? 01/26/2022 [facility] Authorizing Provider: ??Tamar Leon MD ??Collected: ? 01/21/2022 1555 ? 9:02 AM HEALTH Ordering Location: ? [facility] ?Received: ?01/22/20222018 ? CDT ROLO JIMENEZ [...] the wall thickness uniformly measures 0.2 cm. ??Nutrition Intern sections are submitted in 1 cassette (cystic duct margin not readily identified). 9:02 AM HEAL CDT LABORATORY-C Time and date in formalin: 1555 on 01/21/2022 ENTRAL LABORATORY TRB 01/25/2022 Microscopic The final 01/26/2022 [facility] Description diagnosis is 9:02 AM HEALTH based on CDT LABORATORY-C microscopic ENTRAL examination of LABORATORY appropriate sections of all specimens. Additional 01/26/2022 [facility] Information Interpreted at [facility] [facility], Central Laboratory - [address], [place] [address] 9:02 AM HEALTH CDT LABORATORY-C ENTRAL LABORATORY Specimen Anatomical Location Collection Method Collection Time Received Time (Source) / Laterality / Volume Other SPECIMEN FROM 01/21/2022 3:55 01/22/2022 8:19 GALLBLADDER / PM CDT PM CDT Unknown Tamar Solorzano MD PATHOLOGY/CYTOLOGY Performing Organization Address City/State/ZIP Code Phon e Number [facility] [address] [place] [address] LABORATORY-CENTRAL 2000 LABORATORY LAB TRACKING EVENT (01/21/2022 3:43 PM CDT) Specimen Anatomical Collection Method Collection Time Receive d Time (Source) Location / / Volume Laterality Other (Other) Client Collect / 01/21/2022 3:43 PM 12/27 7:45 Unknown CDT PM CDT Tamar Solorzano MD LAB BILL ONLY Performing Organization Address City/State/ZIP Code Phon e Number [facility] [address] [place] [address] LABORATORY-CENTRAL 2000 LABORATORY from Last 3 Months Additional Health [...] 12 months since positive culture): resides in acute/nursing home care, receiving hemodialysis, has chronic open wounds/skin [...] 2013-Presen t WC WORKERS COMP WC [facility] [id number] 2013-Prese [address] [address] [place] [address] [employer] [id number] 2014-Prese [address] [place] [address] [employer] [place] [employer] [id number] 2015-Presen [address] [place] [address] [employer] [id number] Effective for [address] [address] [place] [address] [employer] OF [id number] 2015-Presen [address] [place] [address] [employer] OF [id number] 2012-Prese [address] [place] [address] Amaury Carbajal Personal/Family Self [phone] (Home) [place] [phone] Amaury Carbajal Personal/Family Self [phone] (Home) [place] [phone] Amaury Carbajal Workers Comp Self [phone] [address] (Home) [place] [phone] Amaury Carbajal Workers Comp Self 1965 [id number] [address] (Home) [place] [phone] Amaury Carbajal Motor Vehicle Self 1965 [id number] [address] (Home) [place], [place] [phone] [facility]/Jorge Luis Employer 03/28/[address] [facility] x[employer] (Home) PAYABLE [phone] [address] (Work) [place] [address] Advance Directives Latest Code Status on File Code Status Date Activated Date Inactivated Comments Full Code 01/25/2022 1:56 AM 02/05/2022 6:03 PM Question Answer Comments Code Status Discussion: Reviewed Preferences Code Status History Code Status Date Activated Date Inactivated Comments Full Code 01/25/2022 1:38 AM 01/25/2022 1:56 AM Question Answer Comments Code Status Discussion: Unable to Assess Preferences, Provid er to review later Full Code 09/14/2017 9:32 AM 09/19/2017 11:28 PM Question Answer Comments Code Status Discussion: Discussed Full Code 06/28/2016 3:13 PM 07/01/2016 4:08 PM Question Answer Comments Code Status Discussion: Not Discussed Full Code 11/06/2015 12:29 AM 11/06/2015 4:44 PM Question Answer Comments Code Status Discussion: Not Discussed Care Teams Perioperative Educator Relationship Specialty Start Date End Date Pcp, No PCP - General 12/06/18 . None 01/04/[address] [facility] 02/05/[address] [address]
--- OUTSIDE RECORDS SUMMARY | 2022-03-09 12:47 | XMS_ITS ---
:1965 Author Name Lulu Snow Care Team Providers Name Role Phone Lulu Snow Unavailable Unavailable PROBLEMS Type Condition ICD9-CM Code [id number] Code Onset Condition SNO MED Code Dates Status Problem Urge incontinence N39.41 Active 87 463500 ALLERGIES Substance Reaction Event Type Date Status Ibuprofen Unknown Drug Allergy Jan, Active ENCOUNTERS Encounter Location Date Diagnosis [facility] [address] [facility] [address], [place], [place] [id number] IMMUNIZATIONS No Known Immunizations SOCIAL HISTORY Qualifiers Date Never Smoker REASON FOR REFERRAL Reason Urge Incontinence Referring Provider First Name Lulu Referring Provider Last Name Gwendolyn Referring Provider Specialty Outpatient Clerk and gynecolo [facility] Referred Organization [facility] Referred Provider Huyen Baird Referred Address [address] [place], [place],[phone] Referred Provider Specialty Outpatient Clerk and gynecolog ist FUNCTIONAL STATUS PLAN OF CARE Activity Details Referral Urge Incontinence, Huyen cavanaugh, [address] [place], [place], [phone], VITAL SIGNS MEDICATIONS Medication Instructions Dosage Frequency [...] Dates [facility] [address] [facility] self Marnie [phone] Jadiel TSANG [phone] MEDICAL (GENERAL) HISTORY Type Description Date Medical [...]
[2022-03-09 13:35] LABS: Basophils Absolute Auto 0.05 K/uL (0.00-0.30); Basophils Percent Auto 0.7 % (0.0-3.0); Eosinophils Absolute Auto 0.19 K/uL (0.00-0.50); Eosinophils Percent Auto 2.8 % (0.0-7.0); Hemoglobin* 11.3 gm/dL (12.0-16.0); Immature Granulocytes Abs Auto 0.01 K/uL (0.00-0.30); Immature Granulocytes Pct Auto 0.1 %; Lymphocytes Absolute Auto 1.93 K/uL (0.90-2.90); Lymphocytes Percent Auto 28.2 % (20-44); Mean Corpuscular HGB Conc 32 gm/dL (32-36); Mean Corpuscular Hemoglobin 30 pg (26-34); Mean Corpuscular Volume 92 fL (80-100); Monocytes Percent Auto 6.6 % (0.0-11.0); Neutrophils Absolute Auto 4.22 K/uL (1.7-7.0); Neutrophils Percent Auto 61.6 % (42.0-72.0); Platelet Count* 316 K/uL (140-440); RDW Coefficient of Variation % 12.7 % (11.5-15.5); White Blood Count* 6.85 K/uL (4.50-11.00)
[2022-03-09 13:47] LABS: Slide Review Reflex No
[2022-03-09 13:52] LABS: Chloride* 109 mmol/L (96-114)
[2022-03-09 13:53] LABS: Potassium* 4.3 mmol/L (3.6-5.1); Sodium* 142 mmol/L (135-149)
[2022-03-09 13:54] LABS: Cholesterol* 155 mg/dL (90-199); Creatinine* 1.7 mg/dL (0.5-1.5); Estimated Glomerular Filt Rate 35 ml/min
[2022-03-09 13:55] LABS: Alkaline Phosphatase* 81 U/L (40-150); Aspartate Amino Transferase* 24 U/L (12-35); Bilirubin Direct* 0.3 mg/dL (0.0-0.5); Bilirubin Total* 0.3 mg/dL (0.1-1.5); Blood Urea Nitrogen* 26 mg/dL (7-30); Carbon Dioxide* 24 mmol/L (20-32); Glucose* 167 mg/dL (60-115); Total Protein* 6.9 g/dL (6.0-8.3); Triglycerides* 302 mg/dL (40-149)
[2022-03-09 13:56] LABS: Alanine Aminotransferase* 19 U/L (4-35); Calcium* 9.1 mg/dL (8.4-10.6); HDL Cholesterol* 39 mg/dL (>=50); LDL Cholesterol Calculated 56 mg/dL (<100)
== END 2022-03-09 12:37 | disposition home or self-care (01) ==
PROVIDERS: PCP Family Medicine; Visit Provider Family Medicine
DX: Z01.818 Encounter for other preprocedural examination (principal); I10 Essential (primary) hypertension; E10.9 Type 1 diabetes mellitus without complications; E03.9 Hypothyroidism, unspecified; E66.9 Obesity, unspecified; N18.30 Chronic kidney disease, stage 3 unspecified; Z90.49 Acquired absence of other specified parts of digestive tract
CPT/HCPCS: 80048; 80061; 80076; 85025

== ENCOUNTER 2022-08-18 18:32 | Outpatient (CLI) | payer OTHER, SELFPAY | END 2022-08-18 18:33 | disposition home or self-care (01) | LOC: AMB 09-20 22:53 | PROVIDERS: PCP Family Medicine; Visit Provider Family Medicine | DX: E11.649 Type 2 diabetes mellitus with hypoglycemia without coma (principal); R41.82 Altered mental status, unspecified; S09.90XA Unspecified injury of head, initial encounter; W18.39XA Other fall on same level, initial encounter; Y92.512 Supermarket, store or market as the place of occurrence of the external cause | CPT/HCPCS: A0425; A0427 ==

== ENCOUNTER 2022-09-21 12:11 | Outpatient (CLI) | payer OTHER, SELFPAY ==
[2022-09-21 13:52] LABS: Basophils Absolute Auto 0.04 K/uL (0.00-0.30); Basophils Percent Auto 0.7 % (0.0-3.0); Eosinophils Absolute Auto 0.17 K/uL (0.00-0.50); Eosinophils Percent Auto 2.8 % (0.0-7.0); Hematocrit 33.1 % (33.0-51.0); Hemoglobin* 10.7 gm/dL (12.0-16.0); Lymphocytes Percent Auto 29.4 % (20-44); Mean Corpuscular HGB Conc 32 gm/dL (32-36); Mean Corpuscular Hemoglobin 30 pg (26-34); Mean Corpuscular Volume 91 fL (80-100); Monocytes Percent Auto 7.2 % (0.0-11.0); Neutrophils Absolute Auto 3.67 K/uL (1.7-7.0); Neutrophils Percent Auto 59.9 % (42.0-72.0); Platelet Count* 254 K/uL (140-440); Red Blood Count 3.62 m/uL (4.00-5.20); White Blood Count* 6.12 K/uL (4.50-11.00)
[2022-09-21 14:26] LABS: Chloride* 104 mmol/L (96-114); Potassium* 4.9 mmol/L (3.6-5.1); Sodium* 136 mmol/L (135-149)
[2022-09-21 14:28] LABS: Cholesterol* 158 mg/dL (90-199); Creatinine* 1.7 mg/dL (0.5-1.5); Estimated Glomerular Filt Rate 35 ml/min
[2022-09-21 14:29] LABS: Blood Urea Nitrogen* 32 mg/dL (7-30); Calcium* 9.1 mg/dL (8.4-10.6); Carbon Dioxide* 24 mmol/L (20-32); Glucose* 163 mg/dL (60-115); Triglycerides* 182 mg/dL (40-149)
[2022-09-21 14:30] LABS: HDL Cholesterol* 53 mg/dL (>=50); LDL Cholesterol Calculated 69 mg/dL (<100)
[2022-09-21 14:58] LABS: Vitamin D 25 Hydroxy* 29 ng/mL (30-80)
[2022-09-21 15:16] LABS: Thyroid Stimulating Hormone* < 0.015 uIU/mL (0.270-4.20)
[2022-09-21 15:25] LABS: Slide Review Reflex No
== END 2022-09-21 12:12 | disposition home or self-care (01) ==
PROVIDERS: PCP Family Medicine; Visit Provider Family Medicine
DX: E03.9 Hypothyroidism, unspecified (principal); R53.83 Other fatigue; E10.9 Type 1 diabetes mellitus without complications; E66.9 Obesity, unspecified; N18.30 Chronic kidney disease, stage 3 unspecified; I10 Essential (primary) hypertension
CPT/HCPCS: 80048; 80061; 82306; 84443; 85025

== ENCOUNTER 2022-10-13 09:45 | Outpatient (RCR) | payer OTHER, SELFPAY | END 2023-01-03 09:06 | disposition home or self-care (01) | PROVIDERS: PCP Family Medicine; Visit Provider Family Medicine | DX: S16.1XXA Strain of muscle, fascia and tendon at neck level, initial encounter (principal); M54.2 Cervicalgia; G43.909 Migraine, unspecified, not intractable, without status migrainosus; M62.838 Other muscle spasm; Z51.89 Encounter for other specified aftercare | CPT/HCPCS: 97012; 97110; 97140; 97163 ==

== ENCOUNTER 2022-11-26 09:50 | Outpatient (CLI) | payer OTHER, SELFPAY | END 2022-11-26 09:51 | disposition home or self-care (01) | LOC: NFLDREF 09:52 | PROVIDERS: PCP Family Medicine; Visit Provider Family Medicine | DX: Z01.818 Encounter for other preprocedural examination (principal); E10.9 Type 1 diabetes mellitus without complications; I10 Essential (primary) hypertension | CPT/HCPCS: 80048 ==

== ENCOUNTER 2023-02-14 13:12 | Outpatient (CLI) | payer OTHER, SELFPAY | END 2023-02-14 13:13 | disposition home or self-care (01) | PROVIDERS: PCP Family Medicine; Visit Provider Family Medicine | DX: E03.9 Hypothyroidism, unspecified (principal) | CPT/HCPCS: 84443 ==

== ENCOUNTER 2023-04-21 09:53 | Outpatient (CLI) | payer OTHER, SELFPAY ==
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
--- OUTSIDE RECORDS SUMMARY | 2023-04-21 09:57 | XMS_ITS | Encounter Summary ---
Author Name Unknown Organization [facility] Address [address] [address] Care Team Providers Care Director Hair Name Role Phone No Primary/Referring, Phy Primary Care Provider Unavailable Encounter Details Date Type Department Care Team Description 02/07/2023 3:00 PM PROFESSOR OF FOOD BIOCHEMISTRY Lab Visit [facility] [address] [place] [address] Hypothyroidism, unspecified type (HRC); Type 1 diabetes mellitus with hypoglycemia and without coma (HRC) Social History Tobacco Use Types Packs/Day [...] AM CDT documented as of this encounter Plan of Treatment Upcoming Encounters Date Type Department Care Team Description 05/25/2023 2:15 PM PROFESSOR OF FOOD BIOCHEMISTRY Appointment [facility] [address] [facility] [place] [address] Logan Parra PA-C [address] [place] [address] 06/01/2023 1:00 PM PROFESSOR OF FOOD BIOCHEMISTRY Appointment [facility] Nephrology [address] [place] [address] Ulysses Cheatham MD [address] [place] [address] 07/20/2023 9:30 AM CDT Appointment [facility] [address] [facility] [place] [address] Kary Adhikari MD [address] [place] [address] documented as of this encounter Procedures Procedure Name Priority Date/Time Associated Diagnosis Comments ALBUMIN/CREAT RATIO Routine 02/07/2023 4:36 PM PROFESSOR OF FOOD BIOCHEMISTRY Type 1 diabetes mellitus with hypoglycemia and without coma (HRC) TSH, SENSITIVE Routine 02/07/2023 4:12 PM PROFESSOR OF FOOD BIOCHEMISTRY Hypothyroidism, unspecified type (HRC) FREE T4 Routine 02/07/2023 4:12 PM PROFESSOR OF FOOD BIOCHEMISTRY Hypothyroidism, unspecified type (HRC) HGB A1C Routine 02/07/2023 4:12 PM PROFESSOR OF FOOD BIOCHEMISTRY Type 1 diabetes mellitus with hypoglycemia and without coma (HRC) documented in this encounter Results * Albumin/Creatinine Ratio,Random Urine (02/07/2023 4:36 PM PROFESSOR OF FOOD BIOCHEMISTRY) Albumin/Creati nine Ratio, Urine, Random 5 <30 mg/g 02/07/2023 7:23 PM PROFESSOR OF FOOD BIOCHEMISTRY [facility] Albumin, Urine, Random 1.7 mg/L 02/07/2023 7:23 PM PROFESSOR OF FOOD BIOCHEMISTRY [facility] Creatinine, Urine, Random 35 >20 mg/dL mg/dL 02/07/2023 7:23 PM PROFESSOR OF FOOD BIOCHEMISTRY [facility] Urine Non-blood Collection / Unknown 02/07/2023 4:36 PM PROFESSOR OF FOOD BIOCHEMISTRY 02/07/2023 4:36 PM PROFESSOR OF FOOD BIOCHEMISTRY Logan Parra PA-C LAB_1 [facility] [address] [address], [facility] [phone] * (ABNORMAL) Hgb A1C (02/07/2023 4:12 PM PROFESSOR OF FOOD BIOCHEMISTRY) Pathologist [facility] Hemoglobin A1C 7.7(H) <=5.6 % 02/07/2023 8:26 PM PROFESSOR OF FOOD BIOCHEMISTRY [facility] Estimated Average Glucose (Calc) 174 < 117 mg/dL 02/07/2023 8:26 PM PROFESSOR OF FOOD BIOCHEMISTRY [facility] Comment:Estimated average gl ucose (eAG) converts A1c into glucose units (mg/dL) and estimates average glucose over the past approximately 3 months. The eAG reference interval (<117 mg/dL) corresponds to an A1c of <5.7%. Blood Venipuncture / Unknown 02/07/2023 4:12 PM PROFESSOR OF FOOD BIOCHEMISTRY 02/07/2023 4:12 PM PROFESSOR OF FOOD BIOCHEMISTRY Narrative [facility] - 02/07/2023 8:26 PM PROFESSOR OF FOOD BIOCHEMISTRY For patients not previously diagnosed with diabetes: 5.7-6.4%: Increased risk for diabetes 6.5% and greater: Diagnostic for diabetes For patients diagnosed with diabetes: <8.0%: Goal of therapy for ages 18-75 Clinicians may recommend a higher or lower goal for specific individuals. Logan Parra PA-C LAB_1 Performing Organization Address City/[facility]/ZIP Co de Phone Number [facility] [address] [phone] * (ABNORMAL) Free T4 (02/07/2023 4:12 PM PROFESSOR OF FOOD BIOCHEMISTRY) Pathologist [facility] T4, Free 0.6(L) 0.7 - 1.5 ng/dL 02/07/2023 7:45 PM PROFESSOR OF FOOD BIOCHEMISTRY [facility] Blood Venipuncture / Unknown 02/07/2023 4:12 PM PROFESSOR OF FOOD BIOCHEMISTRY 02/07/2023 4:12 PM PROFESSOR OF FOOD BIOCHEMISTRY Logan Parra PA-C LAB_1 Performing Organization Address City/[facility]/ZIP Co de Phone Number [facility] [address] [phone] * TSH (02/07/2023 4:12 PM PROFESSOR OF FOOD BIOCHEMISTRY) TSH, Sensitive 1.75 0.30 - 4.50 uIU/mL 02/07/2023 7:45 PM PROFESSOR OF FOOD BIOCHEMISTRY [facility] Blood Venipuncture / Unknown 02/07/2023 4:12 PM PROFESSOR OF FOOD BIOCHEMISTRY 02/07/2023 4:12 PM PROFESSOR OF FOOD BIOCHEMISTRY Logan Parra PA-C LAB_1 [facility] [address] [phone] documented in this encounter Visit Diagnoses Diagnosis Hypothyroidism, unspecified type (HRC) Type 1 diabetes mellitus with hypoglycemia and without coma (HRC) Type I (juvenile type) diabetes mellitus with other specified manifestations, not stated as uncontrolled documented in this encounter Additional Health Concerns Infection Onset Date Last Indicated Resolved Time MRSA Comment:Beronica 10-4-15, 01/06/16 12/30/2014 12/30/2014 documented as of this encounter Care Teams Director Hair Relationship Specialty Start Date End Date No Primary/Referring, Phy PCP - General 11/17/12 documented as of this encounter
--- OUTSIDE RECORDS SUMMARY | 2023-04-21 09:57 | XMS_ITS | Encounter Summary ---
Author Name Unknown Organization [facility] Address [address] [address] Care Team Providers Care Grease Renderer Name Role Phone No Primary/Referring, Phy Primary Care Provider Unavailable Encounter Details Date Type Department Care Team Description 01/10/2023 Telephone Specialty Center [address] End[facility] [address] [place] [address]. [place], [place] [id number] Logan Parra PA-C [address] [place] [phone] Social History Tobacco Use Types Packs/Day Years [...] AM CDT documented as of this encounter Nursing Notes * Ishmael Morrell - 01/11/2023 9:31 AM CDT Pt advised she was provided the number for Diabetic Ed. will schedule an appt * Logan Parra PA-C - 01/10/2023 9:11 PM CDT Can we call this pt, help her get in with [facility]? She has been having malfunctions with her pump. She is scheduled with me for about a month from now, but hasn't gotten scheduled for Diabetes ed yet - this is really important, given her pump issues. Thanks Fidel documented in this encounter Plan of Treatment Upcoming Encounters Date Type Department Care Team Description 05/25/2023 2:15 PM TELECOMMUNICATIONS CABLE JOINTER Appointment Specialty [place] [address] [facility] Clinic [address] [place] [address] Logan Parra PA-C [address] [place] [address] 06/01/2023 1:00 PM TELECOMMUNICATIONS CABLE JOINTER Appointment [facility] Nephrology [address] [place] [address] Ulysses Cheatham MD [address] [place] [phone] 07/20/2023 9:30 AM CDT Appointment [place] [address] Dermatology Clinic [address] [place] [address] Kary Adhikari MD [address] [place] [phone] documented as of this encounter Visit Diagnoses Diagnosis Hx of type 1 diabetes mellitus- Primary Personal history of other endocrine, metabolic, and immunity disorders documented in this encounter Additional Health Concerns Infection Onset Date Last Indicated Resolved Time MRSA Comment:Beronica 10-4-15, 01/06/16 12/30/2014 12/30/2014 documented as of this encounter Care Teams Grease Renderer Relationship Specialty Start Date End Date No Primary/Referring, Phy PCP - General 11/17/12 documented as of this encounter
--- OUTSIDE RECORDS SUMMARY | 2023-04-21 09:57 | XMS_ITS | Clinical Summary ---
Author Name Unknown Organization [facility] Address [address], [place] [address] Care Team Providers Care Rn Perinatal Name Role Phone No Primary/Referring, Phy Primary Care Provider Unavailable Source Comments You are receiving this document as you are listed as the primary care provider,follow-up provider, or the patient has been referred to you for consultation.This is in compliance with the Medicare andOhio[facility] Hospitalca[facility] EHR Incentive Program,which states Providers who transition their patient to another setting of careor provider of care or refers their patient to another provider of care shouldprovide summary care record for each transition of care or referral. [facility] Allergies Active Allergy Reactions Criticality Noted Date Comments Naproxen Gastrointestinal 05/15/2015 Medications Medication Sig Dispensed Refills Start Date End Date Status SUMAtriptan (AKA IMITREX) 50 MG tablet . Take 1 tablet by mouth every 2 hours as needed for migraine headaches. 0 Active ondansetron (AKA ZOFRAN) 4 MG disintegrating tablet Take 1 Tablet (4 mg) by mouth every 8 hours as needed for Nausea. 0 Active calcium carbonate-vitamin D 600-400 MG-UNIT tablet Take 1 Tablet by mouth daily. 0 Active tolterodine (AKA DETROL) 2 MG tablet Take 1 Tab by mouth two times a day. 14 Tab 0 12/30/2014 Active Blood Glucose Monitoring Suppl (MARTIN CONTOUR MONITOR) W/DEVICE KIT kit As instructed 1 Each 0 12/30/2014 Active blood glucose (MARTIN CONTOUR TEST) strip 4 x daily. Pharmacy dispense brand based on insurance. 50 Each 0 12/30/2014 Active lancets (MARTIN MICROLET LANCETS) Use as directed. Pharmacy dispense brand based on insurance. 50 Each 0 12/30/2014 Active oxyCODONE (AKA ROXICODONE) 5 MG immediate release tabletIndications:[place] Pain Take 1-2 Tabs by mouth every 4 hours as needed for Pain. Indications: Acute Pain 10 Tab 0 04/30/2015 Active aspirin 81 MG chewable tabletIndications:He art protection Take 1 Tab by mouth daily. Indications: Heart protection 100 Tab 3 04/30/2015 Active citalopram (AKA CELEXA) 40 MG tabletIndications:De pression Take 1 Tab by mouth daily. Indications: Depression 14 Tab 0 04/30/2015 Active lisinopril (AKA ZESTRIL) 10 MG tabletIndications:Hi gh blood pressure & Diabetes Take 1 Tab by mouth daily. Indications: High blood pressure & Diabetes 30 Tab 11 04/30/2015 Active omeprazole (AKA PRILOSEC) 20 MG capsule Take 1 tablet by mouth two times a day before meals for 13 days Indications: H-pylori infect 26 Cap 0 04/30/2015 Active insulin glargine (TOUJEO SOLOSTAR) 300 UNIT/ML injectionIndications :Type 1 Diabetes Mellitus Inject 51 Units subcutaneously every evening. Note increase in dose Indications: Insulin-Dependent Diabetes 15 mL 11 06/11/2015 Active rizatriptan (MAXALT-STRATEGIC ANALYST) 10 MG disintegrating tablet Take by mouth. 0 Active FIBER ADULT GUMMIES ORIndications:3 gummies po daily in morning Indications: 3 gummies po daily in morning 0 Active oxybutynin (DITROPANXL) 10 MG 24 hour release tablet Take by mouth. 0 Active amoxicillin (AMOXIL) 500 MG capsule Take 4 Capsules (2,000 mg) by mouth every 24 hours as needed. 0 Active cyclobenzaprine (FLEXERIL) 10 MG tablet Take 1 Tablet (10 mg) by mouth every 8 hours. 0 12/07/2022 Active estradiol (ESTRACE) 0.1 MG/GM vaginal cream Insert 0.5 g vaginally two times a week. 0 08/12/2022 Active valACYclovir (VALTREX) 500 MG tablet Take 1 Tablet (500 mg) by mouth daily as needed. 0 Active pregabalin (LYRICA) 300 MG capsule Take 1 Capsule (300 mg) by mouth two times a day. 0 Active triamcinolone acetonide (KENALOG) 0.1 % paste apply topically to affected dental area three times a day; use after food and/or drink and/or oral hygiene* 0 11/03/2022 Active furosemide (LASIX) 40 MG tablet Take 1 Tablet (40 mg) by mouth daily. 0 Active GLUCAGON EMERGENCY 1 MG Kit SMARTSI Milligram(s) SUB-Q Once PRN 0 11/02/2022 Active NOVOLOG 100 UNIT/ML injection (vial) Inject 125 Units subcutaneously daily. 0 12/09/2022 Active methocarbamol (ROBAXIN) 500 MG tablet Take 1 Tablet (500 mg) by mouth three times a day as needed. 0 Active metroNIDAZOLE (METROCREAM) 0.75 % cream Apply topically two times a day. 0 08/24/2022 Active Active Problems Problem Noted Date Diagnosed Date Knee osteoarthritis 01/10/2023 Overview: bilateral, has had injections. Hurts daily. Pain -11/04. Can't be seen at [facility], owes them money. They suggested 2 total knee replacements. Has osteophytes and bone spurs. Cortisone injections last 1-2 weeks. Need for SBE (subacute bacterial endocarditis) p rophylaxis 01/10/2023 Obstructive sleep apnea syndrome 01/10/2023 S/p nephrectomy 01/10/2023 Overview: Congenital disorder of kidney. Latent tuberculosis diagnosed by blood test 12/26 Benign essential hypertension 11/07/2019 Diabetic ketoacidosis withou t coma associated with type 1 diabetes mellitus 06/28/2016 Anxiety 11/06/2015 Diabetic peripheral neuropat hy associated with type 1 diabetes mellitus 10/28/2015 MRSA (methicillin resistant Staphylococcus aureu s) 12/30/2014 Overview: Beronica 12-29-14 History of pulmonary embolism 06/07/2014 Generalized tonic-clonic seizure 02/03/2014 Overview: Due to hypoglycemia. Has had 2-3 seizures over the last 8-9 years. Depression with anxiety 05/31/2013 Overview: Med trials: Zoloft, wellbutrin, prozac, ambien. Klonopin until 11/2013 and was switched to hydroxyzine with fair benefit. Trazodone doesn't help. 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 [address] Radha Pope RDN, LD, CDCES Type 1 diabetes mellitus with diabetic neuropathy, unspecified (HRC) (Primary Dx) 03/15/2023 3:30 PM TOUR MANAGER Diabetes Ed [facility] [place] [address] [place] [address] Radha Pope RDN, LD, CDCES Type 1 diabetes mellitus with diabetic nephropathy (HRC) (Primary Dx) 03/01/2023 1:00 PM [facility] Diabetes [place] [address] [place] [address] Radha Pope RDN, LD, CDCES Type 1 diabetes mellitus with diabetic neuropathy, unspecified (HRC) (Primary Dx) 02/18/2023 9:00 AM TOUR MANAGER Lab Visit [facility]ty [facility] [address] [place] [address] Congenital kidney disease; Hair loss; Brittle nails 02/18/2023 7:45 AM TOUR MANAGER Office Visit [facility] [address] [place] [address] Logan Parra PA-C Diabetic peripheral neuropathy associated with type 1 diabetes mellitus (HRC) (Primary Dx); Diabetic ketoacidosis without coma associated with type 1 diabetes mellitus (HRC); Benign essential hypertension (HRC); Congenital kidney disease; Hair loss; Brittle nails 02/09/2023 4:20 AM TOUR MANAGER E-Visit Specialty Center [facility] [address] [place] [address]. [place] [address] Logan Parra PA-C Chief Comp: QUESTIONS, GENERAL 02/07/2023 3:00 PM TOUR MANAGER Lab Visit [facility] [address] [place] [address] Hypothyroidism, unspecified type (HRC); Type 1 diabetes mellitus with hypoglycemia and without coma (HRC) from Last 3 Months Immunizations Name Administration Dates Next Due Influenza IIV4 (Quadrivalent) 0.5mL (28396) 07/2014 Family History Medical History Relation Name Comments Emphysema Father Relation Name Status Comments Father Social History Tobacco Use Types Packs/Day Years [...] Orientation Straight 10/30/2021 11 :25 AM CDT Last Filed Vital Signs Vital Sign Reading Time Taken Comments Blood Pressure 116/54 02/18/2023 8:52 AM TOUR MANAGER Pulse 50 02/18/2023 8:52 AM TOUR MANAGER Temperature 37 ??C (98.6 ??F) 12/22/2022 10:12 PM CDT Respiratory Rate 16 12/22/2022 10:12 PM CDT Oxygen Saturation 100% 12/22/2022 10:52 PM CDT Inhaled Oxygen Concentration - - Weight 114 kg (251 lb 6.4 oz) 02/18/2023 8:04 AM TOUR MANAGER Height 180.3 cm (5' 11) 01/06/2016 11:00 AM CDT Body Mass Index 35.06 01/06/2016 11:00 AM CDT Plan of Treatment Upcoming Encounters Date Type Department Care Team Description 05/25/2023 2:15 PM TOUR MANAGER Appointment [facility] [address] [facility] [place] [address] Logan Parra PA-C [address] [place] [address] 06/01/2023 1:00 PM TOUR MANAGER Appointment [facility] Nephrology [address] [place] [address] Ulysses Cheatham MD [address] [place] [address] 07/20/2023 9:30 AM CDT Appointment [facility] 401 [facility] [address] [place] [address] Kary Adhikari MD [address] [place] [address] Health Maintenance Due Date Last Done Comments Cervical Cancer Screening Due 1965 Colon Cancer Screening Plan Due 1965 Diabetes: Eye Exam 1965 Diabetes: Foot Exam 1965 Diabetes: Lipid Panel 1965 Hep C Screening (Preventive Services) 1965 HepB (1) 1965 Mammogram 1965 COVID-19 Vaccine (#1) 1965 Pneumococcal (1 - PCV) 1971 HIV Screening (Preventive Services) 1981 Adult Preventive Visit 1983 Diabetes: HGBA1C 05/10/2023 02/07/2023, 11/2019, 12/29/2014 Diabetes: Urine Microalbumin 02/08/2024 02/07/2023 Diabetes: Creatinine 02/19/2024 02/18/2023, 12/22/2022, 01/06/2016, Additional history exists DTaP/Tdap/Td (5 - Tdap) 01/11/2026 01/12/20, 01/12/2016, 08/25/2006, Additional history exists Zoster/Shingles Completed 06/07/2022, 02/10/2022 Influenza Completed 02/14/2023, 1009/2021, 12/16/2020, Additional history exists HepA Aged Out No longer eligi ble based on patient's age to complete this topic Hib Aged Out No longer eligi ble based on patient's age to complete this topic IPV (Polio) Aged Out No longer eligi ble based on patient's age to complete this topic MCV4 Aged Out No longer eligi ble based on patient's age to complete this topic Procedures Procedure Name Priority Date/Time Associated Diagnosis Comments COMPLETE BLOOD COUNT-W/DIFF Routine 02/18/2023 9:04 AM TOUR MANAGER Congenital kidney disease FERRITIN Routine 02/18/2023 9:04 AM TOUR MANAGER Hair loss Brittle nails IRON PROFILE (IRON,TIBC,%SAT.(CALC )) Routine 02/18/2023 9:04 AM TOUR MANAGER Hair loss Brittle nails CBC AND DIFFERENTIAL PANEL Routine 02/18/2023 9:04 AM TOUR MANAGER Congenital kidney disease COMPREHENSIVE METABOLIC PANEL Routine 02/18/2023 9:04 AM TOUR MANAGER Congenital kidney disease ALBUMIN/CREAT RATIO Routine 02/07/2023 4 :36 PM TOUR MANAGER Type 1 diabetes mellitus with hypoglycemia and without coma (HRC) HGB A1C Routine 02/07/2023 4:12 PM TOUR MANAGER Type 1 diabetes mellitus with hypoglycemia and without coma (HRC) FREE T4 Routine 02/07/2023 4:12 PM TOUR MANAGER Hypothyroidism, unspecified type (HRC) TSH, SENSITIVE Routine 02/07/2023 4:12 PM TOUR MANAGER Hypothyroidism, unspecified type (HRC) from Last 3 Months Results * (ABNORMAL) Complete Blood Count-W/Diff (02/18/2023 9:04 AM TOUR MANAGER) WBC 5.0 3.5 - 10.5 x10(9)/L 02/18/2023 9:16 AM TOUR MANAGER [facility] RBC 3.84(L) 3.90 - 5.03 x10(12)/L 02/18/2023 9:16 AM TOUR MANAGER [facility] Hemoglobin 11.5(L) 12.0 - 15.5 g/dL 02/18/2023 9:16 AM TOUR MANAGER [facility] HCT 35.5 34.9 - 44.5 % 02/18/2023 9:16 AM TOUR MANAGER [facility] MCV 92.4 80.0 - 100.0 fL 02/18/2023 9:16 AM TOUR MANAGER [facility] MCH 29.9 27.6 - 33.3 pg 02/18/2023 9:16 AM TOUR MANAGER [facility] MCHC 32.4 31.5 - 35.2 g/dL 02/18/2023 9:16 AM TOUR MANAGER [facility] RDW 12.9 11.9 - 15.5 % 02/18/2023 9:16 AM TOUR MANAGER [facility] Platelets 216 150 - 450 x10(9)/L 02/18/2023 9:16 AM [facility] Neutrophil Absolute 2.5 1.7 - 7.0 10(9)/L 02/18/2023 9:16 AM [facility] Lymphocyte Absolute 1.8 1.0 - 4.8 10(9)/L 02/18/2023 9:16 AM TOUR MANAGER [facility] Monocyte Absolute 0.4 0.2 - 0.9 10(9)/L 02/18/2023 9:16 AM [facility] Eosinophil Absolute 0.2 0.0 - 0.5 10(9)/L 02/18/2023 9:16 AM [facility] Basophil Absolute 0.1 0.0 - 0.3 10(9)/L 02/18/2023 9:16 AM [facility] Immature Granulocyte % 0.2 0.0 - 0.5 % 02/18/2023 9:16 AM [facility] Blood Venipuncture / Unknown 02/18/2023 9:04 AM TOUR MANAGER 02/18/2023 9:04 AM TOUR MANAGER Logan Parra PA-C LAB_1 [facility] [address] [place] [address], [facility] [phone] * (ABNORMAL) Comprehensive Metabolic Panel (02/18/2023 9:04 AM TOUR MANAGER) [facility] Sodium 140 136 - 145 mmol/L 02/18/2023 12:42 PM [facility] Potassium 4.9 3.5 - 5.1 mmol/L 02/18/2023 12:42 PM [facility] Chloride 105 98 - 109 mmol/L 02/18/2023 12:42 PM [facility] CO2 25 20 - 29 mmol/L 02/18/2023 12:42 PM [facility] Anion Gap 10 7 - 16 mmol/L 02/18/2023 12:42 PM [facility] Calcium 9.2 8.4 - 10.4 mg/dL 02/18/2023 12:42 PM [facility] BUN 21 7 - 26 mg/dL 02/18/2023 12:42 PM [facility] Creatinine 1.82(H) 0.55 - 1.02 mg/dL 02/18/2023 12:42 PM [facility] Alkaline Phosphatase 91 40 - 150 U/L 02/18/2023 12:42 PM [facility] AST (SGOT) 19 10 - 40 U/L 02/18/2023 12:42 PM [facility] ALT (SGPT) 19 <=55 U/L 02/18/2023 12:42 PM [facility] Bilirubin, Total 0.3 0.2 - 1.2 mg/dL 02/18/2023 12:42 PM [facility] Protein, Total 7.3 6.4 - 8.3 g/dL 02/18/2023 12:42 PM [facility] Albumin 3.9 3.5 - 5.0 g/dL 02/18/2023 12:42 PM [facility] Glucose 119(H) 70 - 100 mg/dL 02/18/2023 12:42 PM [facility] Comment:The given reference range is for the fasting state. Non-fasting reference range for glucose is 70 - 180 mg/dL. GFR, Estimated 32(L) >60 mL/min/1. 73m2 02/18/2023 12:42 PM [facility] Hours Fasting 11.0 8 - 12 Hours 02/18/2023 12:42 PM TOUR MANAGER [facility] Blood Venipuncture / Unknown 02/18/2023 9:04 AM TOUR MANAGER 02/18/2023 9:04 AM TOUR MANAGER Logan Parra PA-C LAB_1 Performing Organization Address City/[facility]/ZIP Co de Phone Number [facility] [address] [address] [phone] [facility] [address] [place], [place] [id number] [place] [address] * FERRITIN (02/18/2023 9:04 AM TOUR MANAGER) Ferritin 20 9 - 204 ng/mL 02/18/2023 1:21 PM TOUR MANAGER [facility] Blood Venipuncture / Unknown 02/18/2023 9:04 AM TOUR MANAGER 02/18/2023 9:04 AM TOUR MANAGER Logan Parra PA-C LAB_1 Performing Organization Address City/[facility] Co de Phone Number [facility] [address] [place] [id number] [place] [address] * IRON PROFILE (IRON,TIBC,%SAT.(CALC)) (02/18/2023 9:04 AM TOUR MANAGER) Iron 53 50 - 170 mcg/dL 02/18/2023 11:33 AM TOUR MANAGER [facility] Transferrin 220 180 - 382 mg/dL 02/18/2023 11:33 AM [facility] TIBC, Calculated 275 240 - 450 mcg/dL 02/18/2023 11:33 AM [facility] % Saturation, Calculated 19 10 - 50 % 02/18/2023 11:33 AM [facility] Blood Venipuncture / Unknown 02/18/2023 9:04 AM TOUR MANAGER 02/18/2023 9:04 AM TOUR MANAGER Logan Parra PA-C LAB_1 [place] [address], [facility] [phone] * Albumin/Creatinine Ratio,Random Urine (02/07/2023 4:36 PM TOUR MANAGER) Pathologist [facility] [place] [facility] Albumin/Creati nine Ratio, Urine, Random 5 <30 mg/g 02/07/2023 7:23 PM TOUR MANAGER [facility] Albumin, Urine, Random 1.7 mg/L 02/07/2023 7:23 PM TOUR MANAGER [facility] Creatinine, Urine, Random 35 >20 mg/dL mg/dL 02/07/2023 7:23 PM TOUR MANAGER [facility] Urine Non-blood Collection / Unknown 02/07/2023 4:36 PM TOUR MANAGER 02/07/2023 4:36 PM TOUR MANAGER Logan Parra PA-C LAB_1 Performing Organization Address [facility] Co de Phone Number [facility] [address] [place] [address], [facility] [phone] * TSH (02/07/2023 4:12 PM TOUR MANAGER) Pathologist [facility] TSH, Sensitive 1.75 0.30 - 4.50 uIU/mL 02/07/2023 7:45 PM TOUR MANAGER [facility] Blood Venipuncture / Unknown 02/07/2023 4:12 PM TOUR MANAGER 02/07/2023 4:12 PM TOUR MANAGER Logan Parra PA-C LAB_1 Performing Organization Address [facility] Co de Phone Number [facility] [address] [place] [address], [facility] [phone] * (ABNORMAL) Free T4 (02/07/2023 4:12 PM TOUR MANAGER) Pathologist [facility] T4, Free 0.6(L) 0.7 - 1.5 ng/dL 02/07/2023 7:45 PM TOUR MANAGER [facility] Blood Venipuncture / Unknown 02/07/2023 4:12 PM TOUR MANAGER 02/07/2023 4:12 PM TOUR MANAGER Logan Ashlee Parra PA-C LAB_1 Performing Organization Address [facility] de Phone Number [facility] [address] [place] [id number], [facility] [phone] * (ABNORMAL) Hgb A1C (02/07/2023 4:12 PM TOUR MANAGER) Hemoglobin A1C 7.7(H) <=5.6 % 02/07/2023 8:26 PM TOUR MANAGER [facility] Estimated Average Glucose (Calc) 174 < 117 mg/dL 02/07/2023 8:26 PM [facility] Comment:Estimated average gl ucose (eAG) converts A1c into glucose units (mg/dL) and estimates average glucose over the past approximately 3 months. The eAG reference interval (<117 mg/dL) corresponds to an A1c of <5.7%. Blood Venipuncture / Unknown 02/07/2023 4:12 PM TOUR MANAGER 02/07/2023 4:12 PM TOUR MANAGER Narrative [facility] - 02/07/2023 8:26 PM TOUR MANAGER For patients not previously diagnosed with diabetes: 5.7-6.4%: Increased risk for diabetes 6.5% and greater: Diagnostic for diabetes For patients diagnosed with diabetes: <8.0%: Goal of therapy for ages 18-75 Clinicians may recommend a higher or lower goal for specific individuals. Logan Parra PA-C LAB_1 Performing Organization Address [facility] Co de Phone Number [facility] [address] [address], [facility] [phone] from Last 3 Months Additional Health Concerns Infection Onset Date Last Indicated MRSA Comment:Beronica 10-4-15, 01/06/16 12/30/2014 12/30/2014 Advance Directives Latest Code Status on File Code Status Date Activated Date Inactivated Comments Full Code 04/28/2015 1:31 AM 04/30/2015 6:39 PM Code Status History Code Status Date Activated Date Inactivated Comments Full Code 12/29/2014 11:37 AM 12/30/2014 6:20 PM Care Teams Rn Perinatal Relationship Specialty Start Date End Date No Primary/Referring, Phy PCP - General 11/17/12
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
--- OUTSIDE RECORDS SUMMARY | 2023-04-21 09:57 | XMS_ITS | Encounter Summary ---
Author Name Unknown Organization [facility] Address [address] [place] [address] Care Team Providers Care Fisheries Inspector Name Role Phone No Primary/Referring, Phy Primary Care Provider Unavailable Reason for Visit * Reason Comments DIABETES EDUCATION Insulin Pump Follow Up Encounter Details Date Type Department Care Team Description 04/19/2023 2:15 PM SURGERY CONSULTANT Telemedicine [facility] Diabetes Education [address] [address] Radha Pope RDN, LD, [facility] [address] [place] [phone] Type 1 diabetes mellitus with diabetic neuropathy, [...] * Patient Instructions* Radha Pope RDN, SULAIMAN, [facility] - 04/19/2023 2:15 PM SURGERY CONSULTANT Images from the original note were not included. Today, based on t:connect website, under Reports and CGM Hourly, Your Time in Range is 62% with Under 70 2%. Your highs seem to happen after eating 10-11pm snack (Belvita 32g carb) without bolusing. You needed to eat a snack in the past when your basals were set higher. Now, your basals are set lower and are safer with 0 Lows overnight!! No insulin adjustments today. We need to build on the safer basals that you have set. We need to help you feel more comfortable without as much of a snack at night. -Consider eating a smaller snack at night - about 15g carb. One fruit serving = 15g carb = 2 Tbsp raisins/craisins 1 small apple/orange/pear (the size of a tennis ball) 1 cup berries (strawberries, raspberries, blueberries) 1 cup melon (cantaloupe, honeydew, watermelon, other melon) 1 small banana or 1/2 large banana 1/2 rochelle 1/2 papaya 1 large fruit = 2 fruit servings - For example, 1 large apple or pear or banana = 2 fruit servings - if you eat 1/2 large fruit = 15g carb ERY CONSULTANT documented in this encounter Progress Notes * Radha Pope RDN, SULAIMAN, JOON - 04/19/2023 2:15 PM CST Subjective: What is the most important concern you want to discuss today? I have had only 2- 3 lows over Elmo since we talked last. Hypo treatment: juice or Coke right away [...] Control IQ Hypoglycemia Unawareness Assessment and Plan: 04/19/2023 Diabetes Care and Education video - -Tandem with Control IQ with Low Glucose alert set at 90mg/dl per pt preference It drops really fast. -At last visit, 03/15, decreased background / basal insulin by 30% all day and all night due to frequent hypoglycemia overnight (that needed assistance from to treat) and not having the need to bolus during the day. -In the last month, pt stated she has had 2-3 lows total since last visit which is much improved. Lows occurred for Elmo during the day which may have been related to waiting extra long without eating. -Hypoglycemia sx are not always felt under 70mg/dl. She has a lot of fears of hypoglycemia which isunderstandable given her history of lows. -Pt is open to changing her Low Glucose alert from 90mg/dl to 85mg/dl. Adjusted during visit today. -t:[employer] not updated. Looked at 03/28-04/09/23 data. Today, based on [employer] website, under Reports and CGM Hourly, Time in Range is 62% with Under 702%. Highs seem to happen after eating 10-11pm snack (Belvita 32g carb) without bolusing. Reminded pt that she needed to eat a snack in the past when basals were set higher. Now, her basalsare set lower and are safer with 0 Lows overnight!! -No insulin adjustments today. We need to build on the safer basals. We need to help pt feel more comfortable without as much of a snack at night. -Follow up 1 month - text sent to pt Plan: Instead of 32g carb from Belvita cracker, Consider eating a smaller snack at night - about 15g carb. This visit was conducted as a: Video Visit Time spent with patient: 40 minutes Education content taught can be found in the diabetes education smartform. ERY CONSULTANT documented in this encounter Plan of Treatment Upcoming Encounters Date Type Department Care Team Description 05/25/2023 2:15 PM SURGERY CONSULTANT Appointment Specialty [facility] [address] Endocr[facility] [facility] 401 [facility] [place] [address] Logan Parra PA-C [address] [place] [address] 06/01/2023 1:00 PM SURGERY CONSULTANT Appointment [facility] Nephrology [address] [place] [address] Ulysses Cheatham MD [address] [place] [address] 07/20/2023 9:30 AM CDT Appointment [facility] 401 Dermatology Clinic [address] [place] [address] Kary Adhikari MD [address] [place] [address] documented as of this encounter Visit Diagnoses Diagnosis Type 1 diabetes mellitus with diabetic neuropathy, unspecified (HRC)- Primary documented in this encounter Additional Health Concerns Infection Onset Date Last Indicated Resolved Time MRSA Comment:Beronica 10-4-15, 01/06/16 12/30/2014 12/30/2014 documented as of this encounter Care Teams Fisheries Inspector Relationship Specialty Start Date End Date No Primary/Referring, Phy PCP - General 11/17/12 documented as of this encounter
--- OUTSIDE RECORDS SUMMARY | 2023-04-21 09:57 | XMS_ITS | Encounter Summary ---
Author Name Unknown Organization [facility] Address [address] [place] [address] Care Team Providers Care Golf Cart Attendant Name Role Phone No Primary/Referring, Phy Primary Care Provider Unavailable Reason for Referral * Consult/Transfer Care (Routine) - New Request Specialty Diagnoses / Procedures Referred By Contac t Referred To Contact Diagnoses Hypoglycemia (HRC) Jayla Tysno MD [address] [place] [id number] Referral ID Status Reason Start Date Expiration Date V isits Requested Visits Authorized [id number] New Request 12/22/2022 03/22/2024 1 1 Scheduling Instructions Your clinician [facility] an [facility] You can quickly make your appointment online at [facility]schedule. You can also call [phone] for help scheduling your appointment. We suggest you call your health insurance company about your coverage and benefits for this appointment. Question Answer Appointment Urgency? Within 2 Days (designee calls specialty to coordinate care) Reason for visit? DM1, insulin pump failure, multiple hypoglycemic episodes Reason for Visit * Reason Comments HYPOGLYCEMIA Encounter Details Date Type Department Care Team Description 12/22/2022 9:41 PM CDT - 12/22/2022 11:02 PM CDT Emergency [facility] [address] [place] [address] [phone] Jayla Tyson MD [address] [place] [address] [phone] Hypoglycemia (HRC) (Primary Dx); Type 1 diabetes mellitus with hypoglycaemic insulin reaction (HRC); Insulin pump status (HRC) Discharge Disposition: Home Social History Tobacco Use Types Packs/Day Years [...] Sign Reading Time Taken Comments Blood Pressure 151/63 12/22/2022 10:30 PM CDT Pulse 64 12/22/2022 10:52 PM CDT Temperature 37 ??C (98.6 ??F) 12/22/2022 10:12 PM CDT Respiratory Rate 16 12/22/2022 10:12 PM CDT Oxygen Saturation 100% 12/22/2022 10:52 PM CDT Inhaled Oxygen Concentration - - Weight - - Height - - Body Mass Index - - documented in this encounter Discharge Instructions * Discharge Instructions* Jayla Tyson MD - 12/22/2022 9:57 PM CDT You were seen in the emergency department today for hypoglycemia. Please discontinue insulin pump use until you are able to see endocrinology. I have placed an emergent referral for you to follow-up with [facility] within [facility]. Return to the ER with any concerns. * Attachments The following attachments cannot be sent through Care Everywhere. * Hypoglycemia in Diabetes: General Info (Maltese) * Diabetes: Blood Sugar Emergencies (Maltese) documented in this encounter Medications at Time of Discharge Medication Sig Dispensed Refills Start Date End Date aspirin 81 MG chewable tabletIndications:Hear t protection Take 1 Tab by mouth daily. Indications: Heart protection 100 Tab 3 04/30/2015 Blood Glucose Monitoring Suppl ([place] CONTOUR MONITOR) W/DEVICE KIT kit As instructed 1 Each 0 12/30/2014 blood glucose (MARTIN CONTOUR TEST) strip 4 x daily. Pharmacy dispense brand based on insurance. 50 Each 0 12/30/2014 calcium carbonate-vitamin D 600-400 MG-UNIT tablet Take 1 Tablet by mouth daily. 0 citalopram (AKA CELEXA) 40 MG tabletIndications:Depr ession Take 1 Tab by mouth daily. Indications: Depression 14 Tab 0 04/30/2015 cyclobenzaprine (FLEXERIL) 10 MG tablet Take 1 Tablet (10 mg) by mouth every 8 hours. 0 12/07/2022 estradiol (ESTRACE) 0.1 MG/GM vaginal cream Insert 0.5 g vaginally two times a week. 0 08/12/2022 GLUCAGON EMERGENCY 1 MG Kit SMARTSI Milligram(s) SUB-Q Once PRN 0 11/02/2022 insulin glargine (TOUJEO SOLOSTAR) 300 UNIT/ML injectionIndications:T ype 1 Diabetes Mellitus Inject 51 Units subcutaneously every evening. Note increase in dose Indications: Insulin-Dependent Diabetes 15 mL 11 06/11/2015 lancets ([place] MICROLET LANCETS) Use as directed. Pharmacy dispense brand based on insurance. 50 Each 0 12/30/2014 lisinopril (AKA ZESTRIL) 10 MG tabletIndications:High blood pressure & Diabetes Take 1 Tab by mouth daily. Indications: High blood pressure & Diabetes 30 Tab 11 04/30/2015 metroNIDAZOLE (METROCREAM) 0.75 % cream Apply topically two times a day. 0 08/24/2022 NOVOLOG 100 UNIT/ML injection (vial) Inject 125 Units subcutaneously daily. 0 12/09/2022 omeprazole (AKA PRILOSEC) 20 MG capsule Take 1 tablet by mouth two times a day before meals for 13 days Indications: H-pylori infect 26 Cap 0 04/30/2015 ondansetron (AKA ZOFRAN) 4 MG disintegrating tablet Take 1 Tablet (4 mg) by mouth every 8 hours as needed for Nausea. 0 oxyCODONE (AKA ROXICODONE) 5 MG immediate release tabletIndications:Acut e Pain Take 1-2 Tabs by mouth every 4 hours as needed for Pain. Indications: Acute Pain 10 Tab 0 04/30/2015 SUMAtriptan (AKA IMITREX) 50 MG tablet . Take 1 tablet by mouth every 2 hours as needed for migraine headaches. 0 tolterodine (AKA DETROL) 2 MG tablet Take 1 Tab by mouth two times a day. 14 Tab 0 12/30/2014 triamcinolone acetonide (KENALOG) 0.1 % paste apply topically to affected dental area three times a day; use after food and/or drink and/or oral hygiene* 0 11/03/2022 BD PEN NEEDLE KRISTIE U/F 32G X 4 MM MISCIndications:Type 1 Diabetes Mellitus 4-6 x daily Indications: Insulin-Dependent Diabetes 200 Each 11 05/09/2015 01/06/2023 Cholecalciferol (VITAMIN D-3) 5000 UNITS TABS Take 5,000 Units by mouth daily. 0 01/06/2023 gabapentin (AKA NEURONTIN) 300 MG capsule Take 300 mg by mouth three times a day. 0 01/06/2023 hydrOXYzine pamoate (AKA VISTARIL) 50 MG capsuleIndications:Mook n/Anxiety Take 1-2 Caps by mouth every 6 hours as needed. Indications: Pain/Anxiety 0 04/30/2015 01/06/2023 insulin regular (HUMULIN R) 100 UNIT/ML injectionIndications:T ype 1 Diabetes Mellitus Inject 1-17 Units subcutaneously three times daily before meals. 1 unit per 10 grams+ 2 per 50 >150 Indications: Insulin-Dependent Diabetes 10 mL 11 05/15/2015 01/06/2023 levothyroxine (AKA SYNTHROID) 150 MCG tablet Take 150 mcg by mouth daily. 0 01/06/2023 mupirocin (BACTROBAN) 2 % ointmentIndications:Pr e-operative examination Apply or instill 0.25 inches on Q-tip into both nostrils, press sides of nose together, gently massage for 1 minute, 2 times/day for 5 days 22 g 0 01/09/2016 01/06/2023 topiramate (AKA TOPAMAX) 100 MG tablet Take 1 Tablet (100 mg) by mouth two times a day. 0 02/18/2023 documented as of this encounter ED Notes * Cesia Portillo RN - 12/22/2022 11:01 PM CDT [facility] ED Nursing Discharge Note Arrival Information: Patient arrived: Ambulance Patient escorted by: EMS/Ambulance Discharge Information: Patient discharged: Home Patient accompanied by: Accompanied By: Family Member/Relative Transport mode: Mode: Walk Discharge instructions given and explained to patient: Follow up appointment review with patient: Yes LDA in place: Patient verbalized understanding of discharge plan and capable of completing discharge plan: Yes Does patient require hand-off or assistance with discharge plan: No Belongings and medication returned to patient and prompted to retrieve weapons: Yes Patient level of pain on discharge: (0-10) Pain Rating: Rest: 0 Holds documented by nursing during this visit - reviewed chart for most current hold status: Yes Legal Status Orders (From admission, onward) None * Jayla Tyson MD - 12/22/2022 9:54 PM CDT [facility] Emergency Medicine Visit Note Chief Complaint: HYPOGLYCEMIA HPI 57-year-old female, past medical history of type 1 diabetes, presenting to the emergency departmenttoday for hypoglycemia. She was found wandering confused at a gas station. Blood sugars in the 40s.She was given D50 with improvement in blood sugar and mental status. This has happened multiple times over the last 2 days. Pump is malfunctioning. Does not currently see endocrinology. No other symptoms. No urinary symptoms. No fevers or chills. Currently feels somewhat foggy but otherwise normal. Triage Vitals Temp Temp src Pulse Resp BP SpO2 Physical Exam General: Well appearing, not in acute distress Head: No signs of trauma Eyes: Normal pupils, no scleral icterus or conjunctival injection ENT: Freely moving neck, mucous membranes moist CV: Normal rate, regular rhythm, normal S1/S2, no murmurs Resp: Non-labored respirations, lungs clear to ausculation bilaterally, no wheezes, rales, or rhonchi GI: Soft, non-tender, non-distended : No CVA tenderness MSK: No edema or tenderness to palpation of the lower extremity Skin: Warm and dry. No rashes or diaphoresis Neuro: Alert and appropriate for age. Moving all 4 extremities appropriately. Ambulating in the room. Psych: Behavior normal 57-year-old female presenting with hypoglycemic episode related to insulin pump failure. Well-appearing now with normal vital signs. Will check BMP and give fluids. Will refer to outpatient endocrinology for follow-up. Will stop insulin pump use and start sliding scale insulin and long-acting insulin at home. She has done this in the past. Jayla Tyson MD ED Course as of 12/22/222258Dec 22, 20222258 Blood sugar 140. Patient awake and tolerating p.o.. Will go home in the care of her . Received fluids. No further care required. Patient discharged in stable condition with urgent endocrinology. [GG] ED Course User Index [GG] Jayla Tyson MD Clinical Impressions as of 12/22/222258 Hypoglycemia (HRC) documented in this encounter Plan of Treatment Upcoming Encounters Date Type Department Care Team Description 05/25/2023 2:15 PM CFD ENGINEER Appointment [place] [id number] [facility] [address] [place] [address] Logan Parra PA-C [address] [place] [address] 06/01/2023 1:00 PM CFD ENGINEER Appointment [facility] Nephrology [address] [place] [address] Ulysses Cheatham MD [address] [place] [address] 07/20/2023 9:30 AM CDT Appointment [place] [address] [facility] [address] [place] [address] Kary Adhikari MD [address] [place] [address] Scheduled Referrals Name Type Priority Associated Diagnoses Orde r Schedule Endocrinology Referral - Adults Referral Routine Hypoglycemia (HRC) Ordered: 12/22/2022 documented as of this encounter Procedures Procedure Name Priority Date/Time Associated Diagnosis Comments EXTRA URINE TUBE Routine 12/22/2022 10:1 4 PM CDT BASIC METABOLIC PANEL STAT 12/22/2022 10:11 PM CDT ALCOHOL,ETHYL STAT 12/22/2022 10:11 PM CDT GLUCOSE, WHOLE BLOOD POCT Routine 12/22/2022 10:06 PM CDT documented in this encounter Results * Extra Urine Tube (12/22/2022 10:14 PM CDT) [facility] Extra Urine Tube Specimen will be held for 24 hours. 12/23/2022 12:00 AM CDT [facility] Urine URINE SPECIMEN COLLECTION, CLEAN CATCH / Unknown Non-blood Collection / Unknown 12/22/2022 10:14 PM CDT 12/22/2022 10:22 PM CDT Everardo Go MD LAB_1 Performing Organization Address [facility]/ZIP Co de Phone Number [address] [phone] * Alcohol (ethyl) Level (12/22/2022 10:11 PM CDT) [facility] Ethyl Alcohol <0.01 <=0.01 g/dL 12/22/2022 10:47 PM CDT [facility] Blood Venipuncture / Unknown 12/22/2022 10:11 PM CDT 12/22/2022 10:21 PM CDT [facility] - 12/22/2022 10:47 PM CDT For medical purposes only; not valid for forensic, legal, or employment use. Jayla Tyson MD LAB_1 Performing Organization Address City/[facility]/ZIP Co de Phone Number [address] [phone] * (ABNORMAL) Basic Metabolic Panel (12/22/2022 10:11 PM CDT) [facility] Sodium 138 136 - 145 mmol/L 12/22/2022 10:47 PM CDT [facility] Potassium 4.9 3.5 - 5.1 mmol/L 12/22/2022 10:47 PM [facility] Chloride 101 98 - 109 mmol/L 12/22/2022 10:47 PM [facility] CO2 24 20 - 29 mmol/L 12/22/2022 10:47 PM [facility] Anion Gap 13 7 - 16 mmol/L 12/22/2022 10:47 PM [facility] Calcium 9.5 8.4 - 10.4 mg/dL 12/22/2022 10:47 PM [facility] BUN 30(H) 7 - 26 mg/dL 12/22/2022 10:47 PM [facility] Creatinine 1.65(H) 0.55 - 1.02 mg/dL 12/22/2022 10:47 PM [facility] Glucose 141(H) 70 - 100 mg/dL 12/22/2022 10:47 PM [facility] Comment:The given reference range is for the fasting state. Non-fasting reference range for glucose is 70 - 180 mg/dL. GFR, Estimated 36(L) >60 mL/min/1.7 3m2 12/22/2022 10:47 PM [facility] Blood Venipuncture / Unknown 12/22/2022 10:11 PM CDT 12/22/2022 10:21 PM CDT Jayla Tyson MD LAB_1 [place] [address], [facility] [phone] * Glucose, Whole Blood POCT (12/22/2022 10:06 PM CDT) Glucose, Whole Blood 142 70 - 180 mg/dL 12/22/2022 10:08 PM [facility] Performing Location [facility] ED A 12/22/2022 10:08 PM [facility] Blood 12/22/2022 10:0 6 PM CDT 12/22/2022 10:08 PM CDT Jayla Tyson MD LAB_1 Performing Organization Address City/[facility]/ZIP Co de Phone Number [place], [place] [address] [phone] documented in this encounter Visit Diagnoses Diagnosis Hypoglycemia (HRC)- Primary Hypoglycemia, unspecified Type 1 diabetes mellitus with hypoglycaemic insulin reaction (HRC) Insulin pump status (HRC) Insulin pump status * Triage Assessment Note - Husam Perales RN - 12/22/2022 10:18 PM CDT Patient arrived by [facility] from [facility] with chief complaint: hypoglycemia Symptoms/background (EMS narrative): Pt was at [facility] with AMS and on the ground. EMS responded and found her BS to be 47. Pt conscious and able to swallow oral glutose. After 10 minutes, pt became alert and orientated, BS was 203. Upon arrival to ED pt answering questions appropriately however seems slightly altered. Interventions/abnormal vitals: vitals WNL, 18g LAC Additional patient report (what else the nurse finds out): Pt uses insulin pump which has been malfunctioning X 4 months. Pt continues to use pump but it boluses unknown amounts without recognition of current BS or input of carbohydrate grams. Pt no longer has hairspring assembler and is looking for refe rral. New pump to arrive X 1 week. Pt has disconnected pump and states she is going to manually check magdalena blood sugar and manually give insulin with syringe. documented in this encounter Administered Medications Inactive Administered Medications - up to 3 most recent administrations Medication Order MAR Action Action Date Dose Rate Site sodium chloride 0.9% bolus 1,000 mL 1,000 mL, Intravenous, Administer over 1 Hours, ONCE, On Tue12/22/22 at 2215, For 1 dose Started 12/22/2022 10:10 PM CDT 1,000 mL documented in this encounter Active and Recently Administered Medications Times are shown in CDT. Scheduled Medication Order 12/20/2022 12/21/2022 12/22/2022 sodium chloride 0.9% bolus 1,000 mL (COMPLETED) 1,000 mL, Intravenous, Administer over 1 Hours, ONCE, On Tue12/22/22 at 2215, For 1 dose 2210 (Started - Prov ider: Husam Perales RN)2301 (Infused - Provider: Cesia Portillo RN) documented in this encounter Additional Health Concerns Infection Onset Date Last Indicated Resolved Time MRSA Comment:Beronica 10-4-15, 01/06/16 12/30/2014 12/30/2014 documented as of this encounter Care Teams Golf Cart Attendant Relationship Specialty Start Date End Date No Primary/Referring, Henriettay PCP - General 11/17/12 documented as of this encounter
--- OUTSIDE RECORDS SUMMARY | 2023-04-21 09:57 | XMS_ITS | Encounter Summary ---
Author Name Unknown Organization [facility] Address [address] [place] [address] Care Team Providers Care Costume Director Name Role Phone No Primary/Referring, Phy Primary Care Provider Unavailable Reason for Visit * Reason Comments QUESTIONS, GENERAL Entered automaticall y based on patient selection in [employer]. Encounter Details Date Type Department Care Team Description 02/09/2023 4:20 AM ANESTHESIOLOGY PHYSICIAN [facility] [address] [facility] [place], [place] [phone] Lgoan Parra PA-C [address] [place] [address] [phone] Chief Comp: QUESTIONS, GENERAL Social History Tobacco Use Types Packs/Day Years [...] as of this encounter Nursing Notes * Alex Deutsch - 02/09/2023 10:04 AM CST Note added to appointment notes that patient requesting flu shot at 02/10/23 follow up. Alex Villalba RN 02/09/2023 10:04 AM THESIOLOGY PHYSICIAN documented in this encounter Plan of Treatment Upcoming Encounters Date Type Department Care Team Description 05/25/2023 2:15 PM ANESTHESIOLOGY PHYSICIAN Appointment [facility] [place] [phone] [facility] [address] [place] [address] Logan Parra PA-C [address] [place] [address] 06/01/2023 1:00 PM ANESTHESIOLOGY PHYSICIAN Appointment [facility] Nephrology [address] [place] [address] Ulysses Cheatham MD [address] [place] [address] 07/20/2023 9:30 AM CDT Appointment [facility] [place] [address] Dermatology Clinic [address] [place] [address] Kary Adhikari MD [address] [place] [address] documented as of this encounter Visit Diagnoses Not on filedocumented in this encounter Additional Health Concerns Infection Onset Date Last Indicated Resolved Time MRSA Comment:Beronica 10-4-15, 01/06/16 12/30/2014 12/30/2014 documented as of this encounter Care Teams Costume Director Relationship Specialty Start Date End Date No Primary/Referring, Phy PCP - General 11/17/12 documented as of this encounter
--- OUTSIDE RECORDS SUMMARY | 2023-04-21 09:57 | XMS_ITS | Encounter Summary ---
Author Name Unknown Organization [facility] Address [address] [address] Care Team Providers Care Testing Director Name Role Phone No Primary/Referring, Phy Primary Care Provider Unavailable Encounter Details Date Type Department Care Team Description 02/18/2023 9:00 AM POWER TRANSFORMER REPAIRER Lab Visit [facility] [address] [place] [address] Congenital kidney disease; Hair loss; Brittle nails [...] Department Care Team Description 05/25/2023 2:15 PM POWER TRANSFORMER REPAIRER Appointment [facility] [address] [place] [address] Logan Parra PA-C [address] [place] [address] 06/01/2023 1:00 PM POWER TRANSFORMER REPAIRER Appointment [facility] Nephrology [address] [place] [phone] Ulysses Cheatham MD [address] [place], [place] [phone] 07/20/2023 9:30 AM CDT Appointment [facility] 401 [facility] [place] [address] Kary Adhikari MD 401 [facility] [place] [place] [address] documented as of this encounter Procedures Procedure Name Priority Date/Time Associated Diagnosis Comments CBC AND DIFFERENTIAL PANEL Routine 02/18/2023 9:04 AM POWER TRANSFORMER REPAIRER Congenital kidney disease COMPLETE BLOOD COUNT-W/DIFF Routine 02/18/2023 9:04 AM POWER TRANSFORMER REPAIRER Congenital kidney disease COMPREHENSIVE METABOLIC PANEL Routine 02/18/2023 9:04 AM POWER TRANSFORMER REPAIRER Congenital kidney disease FERRITIN Routine 02/18/2023 9:04 AM POWER TRANSFORMER REPAIRER Hair loss Brittle nails IRON PROFILE (IRON,TIBC,%SAT.(CALC) ) Routine 02/18/2023 9:04 AM POWER TRANSFORMER REPAIRER Hair loss Brittle nails documented in this encounter Results * (ABNORMAL) Complete Blood Count-W/Diff (02/18/2023 9:04 AM POWER TRANSFORMER REPAIRER) WBC 5.0 3.5 - 10.5 x10(9)/L 02/18/2023 9:16 AM POWER TRANSFORMER REPAIRER [facility] RBC 3.84(L) 3.90 - 5.03 x10(12)/L 02/18/2023 9:16 AM POWER TRANSFORMER REPAIRER [facility] Hemoglobin 11.5(L) 12.0 - 15.5 g/dL 02/18/2023 9:16 AM POWER TRANSFORMER REPAIRER [facility] HCT 35.5 34.9 - 44.5 % 02/18/2023 9:16 AM POWER TRANSFORMER REPAIRER [facility] MCV 92.4 80.0 - 100.0 fL 02/18/2023 9:16 AM POWER TRANSFORMER REPAIRER [facility] MCH 29.9 27.6 - 33.3 pg 02/18/2023 9:16 AM POWER TRANSFORMER REPAIRER [facility] MCHC 32.4 31.5 - 35.2 g/dL 02/18/2023 9:16 AM POWER TRANSFORMER REPAIRER [facility] RDW 12.9 11.9 - 15.5 % 02/18/2023 9:16 AM POWER TRANSFORMER REPAIRER [facility] Platelets 216 150 - 450 x10(9)/L 02/18/2023 9:16 AM POWER TRANSFORMER REPAIRER [facility] Neutrophil Absolute 2.5 1.7 - 7.0 10(9)/L 02/18/2023 9:16 AM POWER TRANSFORMER REPAIRER [facility] Lymphocyte Absolute 1.8 1.0 - 4.8 10(9)/L 02/18/2023 9:16 AM POWER TRANSFORMER REPAIRER [facility] Monocyte Absolute 0.4 0.2 - 0.9 10(9)/L 02/18/2023 9:16 AM POWER TRANSFORMER REPAIRER [facility] Eosinophil Absolute 0.2 0.0 - 0.5 10(9)/L 02/18/2023 9:16 AM POWER TRANSFORMER REPAIRER [facility] Basophil Absolute 0.1 0.0 - 0.3 10(9)/L 02/18/2023 9:16 AM POWER TRANSFORMER REPAIRER [facility] Immature Granulocyte % 0.2 0.0 - 0.5 % 02/18/2023 9:16 AM POWER TRANSFORMER REPAIRER [facility] Blood Venipuncture / Unknown 02/18/2023 9:04 AM POWER TRANSFORMER REPAIRER 02/18/2023 9:04 AM POWER TRANSFORMER REPAIRER Logan Parra PA-C LAB_1 Performing Organization Address City/[facility] de Phone Number [facility] [address] [place], [place] [id number] [place] [address] * FERRITIN (02/18/2023 9:04 AM POWER TRANSFORMER REPAIRER) Ferritin 20 9 - 204 ng/mL 02/18/2023 1:21 PM POWER TRANSFORMER REPAIRER [facility] Blood Venipuncture / Unknown 02/18/2023 9:04 AM POWER TRANSFORMER REPAIRER 02/18/2023 9:04 AM POWER TRANSFORMER REPAIRER Logan Parra PA-C LAB_1 Performing Organization Address City/[facility] Co de Phone Number [facility] [address] [place] [address], [facility] [phone] * IRON PROFILE (IRON,TIBC,%SAT.(CALC)) (02/18/2023 9:04 AM POWER TRANSFORMER REPAIRER) Iron 53 50 - 170 mcg/dL 02/18/2023 11:33 AM [facility] Transferrin 220 180 - 382 mg/dL 02/18/2023 11:33 AM [facility] TIBC, Calculated 275 240 - 450 mcg/dL 02/18/2023 11:33 AM [facility] % Saturation, Calculated 19 10 - 50 % 02/18/2023 11:33 AM [facility] Blood Venipuncture / Unknown 02/18/2023 9:04 AM POWER TRANSFORMER REPAIRER 02/18/2023 9:04 AM POWER TRANSFORMER REPAIRER Logan Parra PA-C LAB_1 Performing Organization Address [facility] [place] [address], [facility] [phone] * (ABNORMAL) Comprehensive Metabolic Panel (02/18/2023 9:04 AM POWER TRANSFORMER REPAIRER) Sodium 140 136 - 145 mmol/L 02/18/2023 12:42 PM [facility] Potassium 4.9 3.5 - 5.1 mmol/L 02/18/2023 12:42 PM [facility] Chloride 105 98 - 109 mmol/L 02/18/2023 12:42 PM [facility] CO2 25 20 - 29 mmol/L 02/18/2023 12:42 PM [facility] Anion Gap 10 7 - 16 mmol/L 02/18/2023 12:42 PM [facility] Calcium 9.2 8.4 - 10.4 mg/dL 02/18/2023 12:42 PM [facility] BUN 21 7 - 26 mg/dL 02/18/2023 12:42 PM [facility] Creatinine 1.82(H) 0.55 - 1.02 mg/dL 02/18/2023 12:42 PM [facility] Alkaline Phosphatase 91 40 - 150 U/L 02/18/2023 12:42 PM [facility] AST (SGOT) 19 10 - 40 U/L 02/18/2023 12:42 PM [facility] ALT (SGPT) 19 <=55 U/L 02/18/2023 12:42 PM [facility] Bilirubin, Total 0.3 0.2 - 1.2 mg/dL 02/18/2023 12:42 PM [facility] Protein, Total 7.3 6.4 - 8.3 g/dL 02/18/2023 12:42 PM [facility] Albumin 3.9 3.5 - 5.0 g/dL 02/18/2023 12:42 PM [facility] Glucose 119(H) 70 - 100 mg/dL 02/18/2023 12:42 PM [facility] Comment:The given reference range is for the fasting state. Non-fasting reference range for glucose is 70 - 180 mg/dL. GFR, Estimated 32(L) >60 mL/min/1. 73m2 02/18/2023 12:42 PM [facility] Hours Fasting 11.0 8 - 12 Hours 02/18/2023 12:42 PM [facility] [place] [facility] Blood Venipuncture / Unknown 02/18/2023 9:04 AM POWER TRANSFORMER REPAIRER 02/18/2023 9:04 AM [facility] Logan Parra PA-C LAB_1 [facility] [id number] [place] [address] [facility] [address] [place] [phone] [place] [address] documented in this encounter Visit Diagnoses Diagnosis Congenital kidney disease Unspecified disorder of kidney and ureter Hair loss Alopecia, unspecified Brittle nails Other specified disease of nail documented in this encounter Additional Health Concerns Infection Onset Date Last Indicated Resolved Time MRSA Comment:Beronica 12-29-14, 01/06/16 12/30/2014 12/30/2014 documented as of this encounter Care Teams Testing Director Relationship Specialty Start Date End Date No Primary/Referring, Phy PCP - General 11/17/12 documented as of this encounter
--- OUTSIDE RECORDS SUMMARY | 2023-04-21 09:58 | XMS_ITS | Referral Summary ---
Author Name Unknown Organization [facility] Address [address] [facility] [place] [address] Care Team Providers Care Imaging Scheduler Name Role Phone Jocelyn Davidson RENATA Unavailable [phone] Nikita Gamble MD Primary Care Provider [phone] Naveen Casiano MD Unavailable [phone] Mikki Blevins MD Unavailable [phone] Mindi Llanes PA-C Unavailable [phone] Allergies No known active allergies Medications Medication Sig Dispensed Refills Start Date End Date Status Citalopram Hydrobromide (CELEXA PO) Take 40 mg by mouth daily 0 Active Topiramate (TOPAMAX PO) Take 200 mg by mouth daily 0 Active aspirin 81 MG tablet Take by mouth daily 0 Activ e Pyridoxine HCl (VITAMIN B6 PO) 0 Active Calcium Carb-Cholecalcifero l (CALCIUM + D3 PO) 0 Activ e sennosides (SENOKOT) 8.6 MG tablet Take 2 tablets by mouth daily 0 Active INSULIN PUMP - OUTPATIENTIndicatio ns:Type 1 diabetes mellitus with complications (H) Date last updated: 02/21/19 T:Slim x2 BASAL RATES and times: 12 AM (midnight): 1.7 units/hour CARB RATIO and times: 12 AM (midnight): 5.5 Corection Factor (Sensitivity) and times: 12 AM (midnight): 23 mg/dL BLOOD GLUCOSE TARGET and times: 12 AM (midnight): 120 Active Insulin Time: 4 hours Using T:Connect: Yes Dexcom Sharing Code: [id number] 0 02/21/2019 Active blood glucose (ACCU-CHEK RADHA PLUS) test stripIndications:Un controlled type 1 diabetes with renal manifestation,Type 1 diabetes mellitus with complications (H) USE TO TEST BLOOD GLUCOSE LEVELS 2TIMES DAILY OR DIRECTED. 200 each 3 04/16/2019 Active insulin syringe-needle U-100 (30G X 1/2 0.5 ML) 30G X 1/2 0.5 ML miscellaneousIndica tions:Type 1 diabetes mellitus with complications (H) Use 1 syringe as needed, during pump failure. 20 each 11 04/16/2019 Active insulin pen needle (B-D U/F) 31G X 5 MM miscellaneous Use 4 daily or as directed. 100 each 3 03/05/2020 Active methocarbamol (ROBAXIN) 500 MG tabletIndications:B ack muscle spasm Take 1 tablet (500 mg) by mouth 4 times daily as needed for muscle spasms 40 tablet 0 09/26/2020 Active SUMAtriptan (IMITREX) 100 MG tabletIndications:M igraine with status migrainosus, not intractable, unspecified migraine type 1 qd prn VÁSQUEZ . May repeat 2 hours 9 tablet 1 11/06/2020 Active acetone urine (KETOSTIX) test stripIndications:Ty pe 1 diabetes mellitus with stage 3a chronic kidney disease (H) Use one strip as needed to test urine for ketones 100 strip 3 12/10/2020 Active insulin aspart (NOVOLOG VIAL) 100 UNITS/ML vialIndications:Typ e 1 diabetes mellitus with stage 3a chronic kidney disease (H) For insulin pump use. Up to 125 units per day. 110 mL 1 06/30/2021 Active levothyroxine (SYNTHROID/LEVOTHRO ID) 200 MCG tabletIndications:H ypothyroidism due to acquired atrophy of thyroid Take 1 tablet (200 mcg) by mouth daily 90 tablet 3 07/28/2021 Active Glucagon, rDNA, (GLUCAGON EMERGENCY) 1 MG KITIndications:Hypo thyroidism due to acquired atrophy of thyroid INJECT 1 MG BY INTRAMUSCULAR ROUTE NEEDED FOR LOW BLOOD SUGAR 2 kit 0 11/13/2021 Active amoxicillin (AMOXIL) 500 MG capsule TAKE 4 CAPSULES BY MOUTH ONCE FOR 1 DOSE 0 11/30/2021 Active amoxicillin (AMOXIL) 500 MG capsule Take 2,000 mg by mouth 0 Active cefdinir (OMNICEF) 300 MG capsule 0 02/04/2022 Active phentermine (ADIPEX-P) 37.5 MG tabletIndications:C lass 1 obesity due to excess calories without serious comorbidity with body mass index (BMI) of 34.0 to 34.9 in adult Take 1 tablet (37.5 mg) by mouth every morning (before breakfast) 90 tablet 1 02/09/2022 Active Active Problems Problem Noted Date Diagnosed Date CKD (chronic kidney disease) stage 4, GFR 15-29 ml/min 09/22/2021 Class 1 obesity due to exces s calories without serious comorbidity with body mass index (BMI) of 34.0 to 34.9 in adult 07/28/2021 Overview: 09/22/2021 [facility] initial Wt 265# Phentermine Start MKD Last Assessment & Plan: Patient was congratulated on wt loss success thus far. Healthy habits to assist with further weight loss were discussed. Marnie will restart the phentermine. She will switch her ensure breakfast drink to a protein drink like ensure max. Migraine with status migrain osus, not intractable, unspecified migraine type 11/06/2020 Last Assessment & Plan: Hemicrania with photophobia and vomiting. Usually treated with amlodipine. Sumatriptan given with excellent result. Discussed triptan usage. Prescribed oral as well Benign essential hypertension 11/07/2019 Acquired hypothyroidism 01/26/2018 Type 1 diabetes mellitus with complications 10/28 Uncontrolled type 1 diabetes with renal manifest ation 11/25/2016 Immunizations Name Administration Dates Next Due Flu, Unspecified 02/01/2017,12/21/2013 Hepatitis B, Adult 04/16/2014,10/18/2013, 014 Influenza (High Dose) 3 latanya nt vaccine 02/01/2017 Influenza Vaccine 18-64 (Flublok) 01/26/2018 Influenza Vaccine >6 months,quad, PF 03/2019,01/20/2017,01/12/2016,2014,12/26/2013 TD,PF 7+ (Tenivac) 01/12/2016 Tdap (Adacel,boostrix) 08/25/2006,08/24/2005 Social History Tobacco Use Types Packs/Day Years Used Date Smoking Tobacco: Never Smokeless Tobacco: Never Tobacco Cessation:Counseling Given: Not Answered Alcohol Use Standard Drinks/Week Comments Yes 0 (1 standard drink = 0.6 oz pur e alcohol) rare PHQ-2 Answer Date Recorded PHQ-2 Score 0 02/26/2020 Adolescent Education Answer Date Record ed Getting School Help Needed Not on file 12/17 Sex and Gender Information Value Date Recorded Sex Assigned at Female 03/04/2020 12:33 PM GATEHOUSE ATTENDANT Gender Identity Female 03/04/2020 12:33 PM GATEHOUSE ATTENDANT Sexual Orientation Straight 03/04/2020 12 :33 PM GATEHOUSE ATTENDANT Last Filed Vital Signs Vital Sign Reading Time Taken Comments Blood Pressure 128/68 11/06/2020 3:31 PM CDT Pulse 75 11/06/2020 3:31 PM CDT Temperature 37 ??C (98.6 ??F) 11/06/2020 3:31 PM CDT Respiratory Rate 19 02/26/2020 1:31 PM GATEHOUSE ATTENDANT Oxygen Saturation 96% 11/06/2020 3:31 PM CDT Inhaled Oxygen Concentration - - Weight 111.1 kg (245 lb) 02/09/2022 9:39 AM GATEHOUSE ATTENDANT last recorded Height 180.3 cm (5' 11) 02/09/2022 9:39 AM GATEHOUSE ATTENDANT pt reported Body Mass Index 34.17 02/09/2022 9:39 AM GATEHOUSE ATTENDANT Plan of Treatment Not on file Care Teams Imaging Scheduler Relationship Specialty Start Date End Date Nikita Gamble MD [address] [place] [address] PCP - General Family Medicine 05/26/20 Jocelyn Davidson, RENATA [address] [place] [address] Post Production Assistant Dietitian, Registered 05/25/18 [place] [address] [place] [address] Assigned PCP 11/16/20 Mikki Blevins MD [address] [place] [address] Endocrinology, Diabetes, and Metabolism 05/07/21 Mindi Llanes PA-C [address] [facility] [address] [place] [address] Assigned Surgical Provider 09/26/21
--- OUTSIDE RECORDS SUMMARY | 2023-04-21 09:58 | XMS_ITS | Encounter Summary ---
Author Name Unknown Organization [facility] Address [address] [place] [address] Care Team Providers Care Grey Goods Marker Name Role Phone Jocelyn Davidson Bran YANEZ Unavailable [phone] Nikita Gamble MD Primary Care Provider [phone] Naveen Casiano MD Unavailable [phone] Mikki Blevins MD Unavailable [phone] Mikki Blevins MD Unavailable [phone] Mindi Llanes PA-C Unavailable [phone] Encounter Details Date Type Department Care Team (Late st Contact Info) Description 09/21/2021 [facility] Social History Tobacco Use Types Packs/Day Years Used Date Smoking Tobacco: Never Smokeless Tobacco: Never Alcohol Use Standard Drinks/Week Comments Yes 0 (1 standard drink = 0.6 oz pur e alcohol) rare PHQ-2 Answer Date Recorded PHQ-2 Score 0 02/26/2020 Sex and Gender Information Value Date Recorded Sex Assigned at Female 03/04/2020 12:33 PM DIRECTOR TRANSLATION Gender Identity Female 03/04/2020 12:33 PM DIRECTOR TRANSLATION Sexual Orientation Straight 03/04/2020 12 :33 PM DIRECTOR TRANSLATION documented as of this encounter Plan of Treatment Not on file documented as of this encounter Visit Diagnoses Not on filedocumented in this encounter Additional Health Concerns Assessment Noted Time PHQ-9 Depression Total Score: 0 02/26/20 20 1:30 PM DIRECTOR TRANSLATION documented as of this encounter Care Teams Grey Goods Marker Relationship Specialty Start Date End Date Nikita Gamble MD [address] [place] [address] PCP - General Family Medicine 05/26/20 Jocelyn Davidson, RENATA [address] [place] [address] Bottle House Quality Control Technician Dietitian, Registered 05/25/18 [place] [address] [place] [address] Assigned PCP 11/16/20 Mikki Blevins MD [address] [place] [address] Endocrinology, Diabetes, and Metabolism 05/07/21 [place] [address] Assigned Endocrinology Provider 08/02/21 01/28/23 Mindi Llanes PA-C [address] [facility] [address] [place] [address] Assigned Surgical Provider 09/26/21 documented as of this encounter
--- OUTSIDE RECORDS SUMMARY | 2023-04-21 09:58 | XMS_ITS | Encounter Summary ---
Author Name Unknown Organization [facility] Address [address] [facility] [place] [address] Care Team Providers Care Incident Handler Name Role Phone Jocelyn Davidson Bran YANEZ Unavailable [phone] Nikita Gamble MD Primary Care Provider [phone] Naveen Casiano MD Unavailable [phone] Mikki Blevins MD Unavailable [phone] Mikki Blevins MD Unavailable [phone] Mindi Llanes PA-C Unavailable [phone] Encounter Details Date Type Department Care Team (Late st Contact Info) Description 10/20/2021 [facility] Medical Advice [facility] Specialty [address] [address] Diandra Giordano MA Social History Tobacco Use Types Packs/Day Years Used Date Smoking Tobacco: Never Smokeless Tobacco: Never Alcohol Use Standard Drinks/Week Comments Yes 0 (1 standard drink = 0.6 oz pur e alcohol) rare PHQ-2 Answer Date Recorded PHQ-2 Score 0 02/26/2020 Sex and Gender Information Value Date Recorded Sex Assigned at Female 03/04/2020 12:33 PM SNOW PLOW TRACTOR OPERATOR Gender Identity Female 03/04/2020 12:33 PM SNOW PLOW TRACTOR OPERATOR Sexual Orientation Straight 03/04/2020 12 :33 PM SNOW PLOW TRACTOR OPERATOR documented as of this encounter Plan of Treatment Not on file documented as of this encounter Visit Diagnoses Not on filedocumented in this encounter Additional Health Concerns Assessment Noted Time PHQ-9 Depression Total Score: 0 02/26/20 20 1:30 PM SNOW PLOW TRACTOR OPERATOR documented as of this encounter Care Teams Incident Handler Relationship Specialty Start Date End Date Nikita Gamble MD [facility] [address] [address] PCP - General Family Medicine 05/26/20 Jocelyn Davidson, RD [facility] [address] [address] Ocean Rescue Lieutenant Dietitian, Registered 05/25/18 [place] [address] [place] [address] Assigned PCP 11/16/20 Mikki Blevins MD [address] [place] [address] Endocrinology, Diabetes, and Metabolism 05/07/21 [place] [address] Assigned Endocrinology Provider 08/02/21 01/28/23 Mindi Llanes PA-C [address] [facility] [address] [place] [address] Assigned Surgical Provider 09/26/21 documented as of this encounter
--- OUTSIDE RECORDS SUMMARY | 2023-04-21 09:58 | XMS_ITS | Encounter Summary ---
Author Name Unknown Organization [facility] Address [address] [facility] [place] [address] Care Team Providers Care Research Mechanic Name Role Phone Jocelyn Davidson Bran YANEZ Unavailable [phone] Nikita Gamble MD Primary Care Provider Naveen Casiano MD Unavailable [phone] Mikki Blevins MD Unavailable [phone] Mikki Blevins MD Unavailable [phone] Mindi Llanes PA-C Unavailable [phone] Encounter Details Date Type Department Care Team (Late st Contact Info) Description 02/11/2022 MyC Medical Advice [facility] [address] [place] [phone] Jammie Mohr, RN Social History Tobacco Use Types Packs/Day Years Used Date Smoking Tobacco: Never Smokeless Tobacco: Never Alcohol Use Standard Drinks/Week Comments Yes 0 (1 standard drink = 0.6 oz pur e alcohol) rare PHQ-2 Answer Date Recorded PHQ-2 Score 0 02/26/2020 Sex and Gender Information Value Date Recorded Sex Assigned at Female 03/04/2020 12:33 PM WORM FARM LABORER Gender Identity Female 03/04/2020 12:33 PM WORM FARM LABORER Sexual Orientation Straight 03/04/2020 12 :33 PM WORM FARM LABORER documented as of this encounter Plan of Treatment Not on file documented as of this encounter Visit Diagnoses Not on filedocumented in this encounter Additional Health Concerns Assessment Noted Time PHQ-9 Depression Total Score: 0 02/26/20 20 1:30 PM WORM FARM LABORER documented as of this encounter Care Teams Research Mechanic Relationship Specialty Start Date End Date Nikita Gamble MD [facility] [address] [place] [address] PCP - General Family Medicine 05/26/20 Jocelyn Davidson, RENATA [address] [place] [address] Business Liaison Officer Dietitian, Registered 05/25/18 [place] [address] [place] [address] Assigned PCP 11/16/20 Mikki Blevins MD [address] [place] [address] Endocrinology, Diabetes, and Metabolism 05/07/21 [place] [address] Assigned Endocrinology Provider 08/02/21 01/28/23 Mindi Llanes PA-C [address] [facility] [address] [place] [address] Assigned Surgical Provider 09/26/21 documented as of this encounter
--- OUTSIDE RECORDS SUMMARY | 2023-04-21 09:58 | XMS_ITS | Clinical Summary ---
Author Name Unknown Organization [place] Address [address] [facility] [place] [address] Care Team Providers Care Hydraulic Dredge Operator Name Role Phone Jocelyn Davidson RENATA Unavailable [phone] Nikita Gamble MD Primary Care Provider Naveen Casiano MD Unavailable [phone] Mikki Blevins MD Unavailable [phone] Mindi Llanes PA-C Unavailable [phone] Allergies No known active allergies Medications Medication [...] hours Using T:Connect: Yes Dexcom Sharing Code: [id number] 0 02/21/2019 Active blood glucose (ACCU-CHEK RADHA [...] Sex Assigned at Female 03/04/2020 12:33 PM TEXTILE DYER Gender Identity Female 03/04/2020 12:33 PM TEXTILE DYER Sexual Orientation Straight 03/04/2020 12 :33 PM TEXTILE DYER Last Filed Vital Signs Vital Sign Reading Time Taken Comments Blood Pressure 128/68 11/06/2020 3:31 PM CDT Pulse 75 11/06/2020 3:31 PM CDT Temperature 37 ??C (98.6 ??F) 11/06/2020 3:31 PM CDT Respiratory Rate 19 02/26/2020 1:31 PM TEXTILE DYER Oxygen Saturation 96% 11/06/2020 3:31 PM CDT Inhaled Oxygen Concentration - - Weight 111.1 kg (245 lb) 02/09/2022 9:39 AM TEXTILE DYER last recorded Height 180.3 cm (5' 11) 02/09/2022 9:39 AM TEXTILE DYER pt reported Body Mass Index 34.17 02/09/2022 9:39 AM TEXTILE DYER Plan of Treatment Health Maintenance Due Date Last Done Comments ADVANCE CARE PLANNING 1965 ANNUAL REVIEW OF HM ORDERS 1965 CT COLONOGRAPHY 1965 FIT 1965 FLEX SIG 1965 MAMMO SCREENING 1965 PARATHYROID 1965 YEARLY PREVENTIVE VISIT 1965 Pneumococcal Vaccine: Pediatrics (0 to 5 Years) and At-Risk Patients (6 to 64 Years) (1 of 2 - PCV) 1971 HIV SCREENING 02/29/1980 HEPATITIS C SCREENING 1983 ZOSTER IMMUNIZATION (1 of 2) 2015 HEMOGLOBIN 06/25/2015 12/25/2014 DIABETIC FOOT EXAM 02/04/2018 02/04/2017 BMP 04/07/2021 01/05/2021, 11/2019, 08/16/2019, Additional history exists MICROALBUMIN 04/07/2021 01/05/2021, 11/2019, 04/16/2019, Additional history exists EYE EXAM 05/07/2021 05/07/2020, 05/27/2019 A1C 07/06/2021 01/05/2021, 09/2020, 03/05/2020, Additional history exists LIPID 01/05/2022 01/05/2021, 03/05/2020 TSH W/FREE T4 REFLEX 01/05/2022 01/05/2021, 01/05/2021, 03/05/2020, Additional history exists HPV TEST 06/09/2022 06/09/2017, 05/26, 06/09/2017, Additional history exists PAP 06/09/2022 06/09/2017, 05/26, 06/09/2017, Additional history exists COVID-19 Vaccine ( season) 2022 06/12/2020, 05/22/2020 INFLUENZA VACCINE (#1) 2022 , 12/16/2020, 12/16/2020, Additional history exists sDNA (Cologuard) 03/11/2023 03/11/2020 PHQ-2 (once per calendar year) 2023 02/26/2020, 02/26/2020 DTAP/TDAP/TD IMMUNIZATION (4 - Td or Tdap) 01/11/2026 01/12/2016, 01/12/2016, 08/25/2006, Additional history exists COLONOSCOPY 06/02/2030 06/02/2020 COLORECTAL CANCER SCREENING 06/02/2030 HEPATITIS B IMMUNIZATION Completed 015, 10/18/2013, 05/31/2013 ALK PHOS Completed 12/25/2014 URINALYSIS Completed 12/25/2014 PHOSPHORUS Completed 08/16/2019 HPV IMMUNIZATION Aged Out No longer e ligible based on patient's age to complete this topic IPV IMMUNIZATION Aged Out No longer e ligible based on patient's age to complete this topic MENINGITIS IMMUNIZATION Aged Out No l onger eligible based on patient's age to complete this topic RSV MONOCLONAL ANTIBODY Aged Out No l onger eligible based on patient's age to complete this topic Care Teams Hydraulic Dredge Operator Relationship Specialty Start Date End Date Nikita Gamble MD [address] [place] [address] PCP - General Family Medicine 05/26/20 Jocelyn Davidson, RENATA [address] [place] [address] Tip Printer Dietitian, Registered 05/25/18 [place] [address] [place] [address] Assigned PCP 11/16/20 Mikki Blevins MD [address] [place], [place] [address] Endocrinology, Diabetes, and Metabolism 05/07/21 Mindi Llanes PA-C [address] [place] [address] Assigned Surgical Provider 09/26/21
--- OUTSIDE RECORDS SUMMARY | 2023-04-21 09:58 | XMS_ITS | Encounter Summary ---
Author Name Unknown Organization [place] Address [address] [facility] [place] [address] Care Team Providers Care Real Estate Underwriter Name Role Phone Jocelyn Davidson RENATA Unavailable [phone] Nikita Gamble MD Primary Care Provider Naveen Casiano MD Unavailable [phone] Mikki Blevins MD Unavailable [phone] Mikki Blevins MD Unavailable [phone] Mindi Llanes PA-C Unavailable [phone] Reason for Visit * Reason Onset Date Comments Medication Question 09/14/2021 OZEMPIC Encounter Details Date Type Department Care Team (Late st Contact Info) Description 09/14/2021 Telephone [facility] [address] [address] Mikki Blevins [place] [address] Medication Question (OZEMPIC) Social History Tobacco Use Types Packs/Day Years Used Date Smoking Tobacco: Never Smokeless Tobacco: Never Alcohol Use Standard Drinks/Week Comments Yes 0 (1 standard drink = 0.6 oz pur e alcohol) rare PHQ-2 Answer Date Recorded PHQ-2 Score 0 02/26/2020 Sex and Gender Information Value Date Recorded Sex Assigned at Female 03/04/2020 12:33 PM SUPPLY TECHNICIAN Gender Identity Female 03/04/2020 12:33 PM SUPPLY TECHNICIAN Sexual Orientation Straight 03/04/2020 12 :33 PM SUPPLY TECHNICIAN documented as of this encounter Miscellaneous Notes * Telephone Encounter - Liberty Rader - 09/14/2021 4:43 PM CDT [facility] Phone Message May a detailed message be left on voicemail: yes Reason for Call: Medication Question or concern regarding medication Prescription Clarification Name of Medication: OZEMPIC Prescribing Provider: [facility]: [id number] [place] [address] What on the order needs clarification? Pt stated she is not doing well on ozempic- a lot of gastrointestinal issues, bloating and no weight loss. Pt is wondering if there is an alternative to try. Please call back with next steps. Action Taken: Message routed to: Other: endo Travel Screening: Not Applicable documented in this encounter Plan of Treatment Not on file documented as of this encounter Visit Diagnoses Not on filedocumented in this encounter Additional Health Concerns Assessment Noted Time PHQ-9 Depression Total Score: 0 02/26/20 1:30 PM SUPPLY TECHNICIAN documented as of this encounter Care Teams Real Estate Underwriter Relationship Specialty Start Date End Date Nikita Gamble MD [place] [address] [place] [address] PCP - General Family Medicine 05/26/[address] [place] [address] [place] [address] Laborer Pipeline Dietitian, Registered 05/25/18 [place] [address] [place] [address] Assigned PCP 11/16/20 Mikki Blevins MD [address] [place] [address] Endocrinology, Diabetes, and Metabolism 05/07/21 Mikki Blevins MD [facility] [place] [address] Assigned Endocrinology Provider 08/02/21 01/28/23 Mindi Llanes PA-C [address] [place] [address] Assigned Surgical Provider 09/26/21 documented as of this encounter
--- OUTSIDE RECORDS SUMMARY | 2023-04-21 09:58 | XMS_ITS | Encounter Summary ---
Author Name Unknown Organization [place] Address [address] [facility] [place] [address] Care Team Providers Care Big Data Developer Name Role Phone Jocelyn Davidson Bran YANEZ Unavailable [phone] Nikita Gamble MD Primary Care Provider [phone] Naveen Casiano MD Unavailable [phone] Mikki Blevins MD Unavailable [phone] Mikki Blevins MD Unavailable [phone] Mindi Llanes PA-C Unavailable [phone] Encounter Details Date Type Department Care Team (Late st Contact Info) Description 02/05/2022 MyC Medical Advice [facility] [address] [place] [phone] Liberty Gilliam MA Social History Tobacco Use Types Packs/Day Years Used Date Smoking Tobacco: Never Smokeless Tobacco: Never Alcohol Use Standard Drinks/Week Comments Yes 0 (1 standard drink = 0.6 oz pur e alcohol) rare PHQ-2 Answer Date Recorded PHQ-2 Score 0 02/26/2020 Sex and Gender Information Value Date Recorded Sex Assigned at Female 03/04/2020 12:33 PM EXPORT SALES ASSISTANT Gender Identity Female 03/04/2020 12:33 PM EXPORT SALES ASSISTANT Sexual Orientation Straight 03/04/2020 12 :33 PM EXPORT SALES ASSISTANT documented as of this encounter Plan of Treatment Not on file documented as of this encounter Visit Diagnoses Not on filedocumented in this encounter Additional Health Concerns Assessment Noted Time PHQ-9 Depression Total Score: 0 02/26/20 20 1:30 PM EXPORT SALES ASSISTANT documented as of this encounter Care Teams Big Data Developer Relationship Specialty Start Date End Date Nikita Gamble MD [facility] [address] [place] [address] PCP - General Family Medicine 05/26/20 Jocelyn Davidson, RD [address] [place] [address] Cook Jelly Dietitian, Registered 05/25/18 [place] [address] [place] [address] Assigned PCP 11/16/20 Mikki Blevins MD [address] [place] [address] Endocrinology, Diabetes, and Metabolism 05/07/21 [place] [address] Assigned Endocrinology Provider 08/02/21 01/28/23 Mindi Llanes PA-C [address] [facility] [address] [place] [address] Assigned Surgical Provider 09/26/21 documented as of this encounter
--- OUTSIDE RECORDS SUMMARY | 2023-04-21 09:58 | XMS_ITS | Encounter Summary ---
Author Name Unknown Organization [facility] Address [address] [address] Care Team Providers Care Organ Grinder Name Role Phone No Primary/Referring, Phy Primary Care Provider Unavailable Encounter Details Date Type Department Care Team Description 04/28/2015 Correspondence [facility] Radiology [address] [place] [address] Radiology, Provider MRI SAFETY SHEET AND COMPATIBILITY FORM Social History Tobacco Use Types Packs/Day Years Used Date Smoking Tobacco: Never Smokeless Tobacco: Never Sex and Gender Information Value Date Recorded Sex Assigned at Female 10/30/2021 11:25 AM CDT Gender Identity Female 10/30/2021 11:25 AM CDT Sexual Orientation Straight 10/30/2021 11 :25 AM CDT documented as of this encounter Plan of Treatment Upcoming Encounters Date Type Department Care Team Description 05/25/2023 2:15 PM STUDY MANAGER Appointment Specialty [place] [address] [facility] [address] [place] [address] Logan Parra PA-C [address] [place] [address] 06/01/2023 1:00 PM STUDY MANAGER Appointment [facility] Nephrology [address] [place] [address] Ulysses Cheatham MD [address] [place] [address] 07/20/2023 9:30 AM CDT Appointment [facility] [address] [facility] [place] [address] Kary Adhikari MD [address] [place] [address] documented as of this encounter Visit Diagnoses Not on filedocumented in this encounter Additional Health Concerns Infection Onset Date Last Indicated Resolved Time MRSA Comment:Beronica 10-4-15, 01/06/16 12/30/2014 12/30/2014 documented as of this encounter Care Teams Organ Grinder Relationship Specialty Start Date End Date No Primary/Referring, Phy PCP - General 11/17/12 documented as of this encounter
--- OUTSIDE RECORDS SUMMARY | 2023-04-21 09:58 | XMS_ITS | Encounter Summary ---
Author Name Unknown Organization [place] Address [address] [facility] [place] [address] Care Team Providers Care Planner Chief Name Role Phone Jocelyn Davidson RENATA Unavailable [phone] Nikita Gamble MD Primary Care Provider Naveen Casiano MD Unavailable [phone] Mikki Blevins MD Unavailable [phone] Mikki Blevins MD Unavailable [phone] Mindi Llanes PA-C Unavailable [phone] Reason for Visit * Reason Comments Medication Refill Encounter Details Date Type Department Care Team (Late st Contact Info) Description 12/20/2021 Refill [facility] [address] [place] [phone] Mindi Llanes PA-C [address] [facility] [address] [place], [place] [address] Medication Refill Social History Tobacco Use Types Packs/Day Years Used Date Smoking Tobacco: Never Smokeless Tobacco: Never Alcohol Use Standard Drinks/Week Comments Yes 0 (1 standard drink = 0.6 oz pur e alcohol) rare PHQ-2 Answer Date Recorded PHQ-2 Score 0 02/26/2020 Sex and Gender Information Value Date Recorded Sex Assigned at Female 03/04/2020 12:33 PM MEDICAL SOCIOLOGIST Gender Identity Female 03/04/2020 12:33 PM MEDICAL SOCIOLOGIST Sexual Orientation Straight 03/04/2020 12 :33 PM MEDICAL SOCIOLOGIST documented as of this encounter Miscellaneous Notes * Telephone Encounter - Jammie Mohr RN - 12/24/2021 10:39 AM CDT 3rd and final attempt to call - left voicemail * Telephone Encounter - Jammie Mohr RN - 12/23/2021 11:27 AM CDT 2nd attempt - left voicemail. * Telephone Encounter - Jammie Mohr RN - 12/22/2021 10:35 AM CDT Left voicemail to make an appointment. Jammie Mohr RN on 12/22/2021 at 10:35 AM * Telephone Encounter - Jammie Mohr RN - [...] Total Score: 0 02/26/20 20 1:30 PM MEDICAL SOCIOLOGIST documented as of this encounter Care Teams Planner Chief Relationship Specialty Start Date End Date Nikita Gamble MD [facility] [place] [place] [address] PCP - General Family Medicine 05/26/[address] [facility] [address] [place] [address] [place] [address] Labor Delivery Specialist Dietitian, Registered 05/25/18 [place] [address] [place] [address] Assigned PCP 11/16/20 Mikki Blevins MD [address] [place] [address] Endocrinology, Diabetes, and Metabolism 05/07/21 [place] [address] Assigned Endocrinology Provider 08/02/21 01/28/23 Mindi Llanes PA-C [address] [place] [address] Assigned Surgical Provider 09/26/21 documented as of this encounter
--- OUTSIDE RECORDS SUMMARY | 2023-04-21 09:58 | XMS_ITS | Encounter Summary ---
Author Name Unknown Organization [place] Address [address] [facility] [place] [address] Care Team Providers Care Jig Inspector Name Role Phone Jocelyn Davidson Bran YANEZ Unavailable [phone] Nikita Gamble MD Primary Care Provider Naveen Casiano MD Unavailable [phone] Mikki Blevins MD Unavailable [phone] Mikki Blevisn MD Unavailable [phone] Mindi Llanes PA-C Unavailable [phone] Encounter Details Date Type Department Care Team (Late st Contact Info) Description 09/21/2021 [facility] Social History Tobacco Use Types Packs/Day Years Used Date Smoking Tobacco: Never Smokeless Tobacco: Never Alcohol Use Standard Drinks/Week Comments Yes 0 (1 standard drink = 0.6 oz pur e alcohol) rare PHQ-2 Answer Date Recorded PHQ-2 Score 0 02/26/2020 Sex and Gender Information Value Date Recorded Sex Assigned at Female 03/04/2020 12:33 PM SUGAR GRINDER Gender Identity Female 03/04/2020 12:33 PM SUGAR GRINDER Sexual Orientation Straight 03/04/2020 12 :33 PM SUGAR GRINDER documented as of this encounter Plan of Treatment Not on file documented as of this encounter Visit Diagnoses Not on filedocumented in this encounter Additional Health Concerns Assessment Noted Time PHQ-9 Depression Total Score: 0 02/26/20 20 1:30 PM SUGAR GRINDER documented as of this encounter Care Teams Jig Inspector Relationship Specialty Start Date End Date Nikita Gamble MD [address] [place] [address] PCP - General Family Medicine 05/26/20 Jocelyn Davidson, RENATA [address] [place] [address] Phone Counselor Dietitian, Registered 05/25/18 [place] [address] [place] [address] Assigned PCP 11/16/20 Mikki Blevins MD [address] [place] [address] Endocrinology, Diabetes, and Metabolism 05/07/21 [place] [address] Assigned Endocrinology Provider 08/02/21 01/28/23 Mindi Llanes PA-C [address] [facility] [address] [place] [address] Assigned Surgical Provider 09/26/21 documented as of this encounter
--- OUTSIDE RECORDS SUMMARY | 2023-04-21 09:58 | XMS_ITS | Encounter Summary ---
Author Name Unknown Organization [place] Address [address] [facility] [place] [address] Care Team Providers Care Auto Body Straightener Name Role Phone Jocelyn Davidson RENATA Unavailable [phone] Nikita Gamble MD Primary Care Provider Naveen Casiano MD Unavailable [phone] Mikki Blevins MD Unavailable [phone] Mikki Blevins MD Unavailable [phone] Mindi Llanes PA-C Unavailable [phone] Encounter Details Date Type Department Care Team (Late st Contact Info) Description 02/11/2022 MyC Medical Advice [facility] Surgical Weight Loss Clinic [address] [place] [phone] Alix Marquez, VASQUEZ [facility] [address] [place] [place] [address] [address] [place], [place] [address] Social History Tobacco Use Types Packs/Day Years Used Date Smoking Tobacco: Never Smokeless Tobacco: Never Alcohol Use Standard Drinks/Week Comments Yes 0 (1 standard drink = 0.6 oz pur e alcohol) rare PHQ-2 Answer Date Recorded PHQ-2 Score 0 02/26/2020 Sex and Gender Information Value Date Recorded Sex Assigned at Female 03/04/2020 12:33 PM ASSEMBLY LINE UPHOLSTERER Gender Identity Female 03/04/2020 12:33 PM ASSEMBLY LINE UPHOLSTERER Sexual Orientation Straight 03/04/2020 12 :33 PM ASSEMBLY LINE UPHOLSTERER documented as of this encounter Plan of Treatment Not on file documented as of this encounter Visit Diagnoses Not on filedocumented in this encounter Additional Health Concerns Assessment Noted Time PHQ-9 Depression Total Score: 0 02/26/20 20 1:30 PM ASSEMBLY LINE UPHOLSTERER documented as of this encounter Care Teams Auto Body Straightener Relationship Specialty Start Date End Date Nikita Gamble MD [place] [address] [place] [address] PCP - General Family Medicine 05/26/[address] [place] [address] Chief Wellness Officer Dietitian, Registered 05/25/18 [place] [address] [place] [address] Assigned PCP 11/16/20 Mikki Blevins MD [address] [place] [address] Endocrinology, Diabetes, and Metabolism 05/07/21 Mikki Blevins [place] [address] Assigned Endocrinology Provider 08/02/21 01/28/23 Mindi Llanes PA-C [address] [facility] [address] [place] [address] Assigned Surgical Provider 09/26/21 documented as of this encounter
--- OUTSIDE RECORDS SUMMARY | 2023-04-21 09:58 | XMS_ITS | Encounter Summary ---
Author Name Unknown Organization [place] Address [address] [facility] [place] [address] Care Team Providers Care Bacteriology Teacher Name Role Phone Jocelyn Davidson Bran YANEZ Unavailable [phone] Nikita Gamble MD Primary Care Provider [phone] Naveen Casiano MD Unavailable [phone] Mikki Blevins MD Unavailable [phone] Mikki Blevins MD Unavailable [phone] Mindi Llanes PA-C Unavailable [phone] Encounter Details Date Type Department Care Team (Late st Contact Info) Description 09/18/2021 MyC Medical Advice [facility] Surgical Weight Loss Clinic [address] [place] [phone] Liberty Gilliam MA Social History Tobacco Use Types Packs/Day Years Used Date Smoking Tobacco: Never Smokeless Tobacco: Never Alcohol Use Standard Drinks/Week Comments Yes 0 (1 standard drink = 0.6 oz pur e alcohol) rare PHQ-2 Answer Date Recorded PHQ-2 Score 0 02/26/2020 Sex and Gender Information Value Date Recorded Sex Assigned at Female 03/04/2020 12:33 PM WAX MACHINE OPERATOR Gender Identity Female 03/04/2020 12:33 PM WAX MACHINE OPERATOR Sexual Orientation Straight 03/04/2020 12 :33 PM WAX MACHINE OPERATOR documented as of this encounter Plan of Treatment Not on file documented as of this encounter Visit Diagnoses Not on filedocumented in this encounter Additional Health Concerns Assessment Noted Time PHQ-9 Depression Total Score: 0 02/26/20 20 1:30 PM WAX MACHINE OPERATOR documented as of this encounter Care Teams Bacteriology Teacher Relationship Specialty Start Date End Date Nikita Gamble MD [facility] [address] [place] [address] PCP - General Family Medicine 05/26/20 Jocelyn Davidson, RD [address] [place] [address] Physician Relations Representative Dietitian, Registered 05/25/18 [place] [address] [place] [address] Assigned PCP 11/16/20 Mikki Blevins MD [address] [place] [address] Endocrinology, Diabetes, and Metabolism 05/07/21 [place] [address] Assigned Endocrinology Provider 08/02/21 01/28/23 Mindi Llanes PA-C [address] [facility] [address] [place] [address] Assigned Surgical Provider 09/26/21 documented as of this encounter
--- OUTSIDE RECORDS SUMMARY | 2023-04-21 09:58 | XMS_ITS | Encounter Summary ---
Author Name Unknown Organization [place] Address [address] [facility] [place] [address] Care Team Providers Care Patient Observation Assistant Name Role Phone Jocelyn Davidson Bran YANEZ Unavailable [phone] Nikita Gamble MD Primary Care Provider [phone] Naveen Casiano MD Unavailable [phone] Mikki Blevins MD Unavailable [phone] Mikki Blevins MD Unavailable [phone] Mindi Llanes PA-C Unavailable [phone] Encounter Details Date Type Department Care Team (Late st Contact Info) Description 12/21/2021 MyC Medical Advice [facility] Surgical Weight Loss Clinic [place] [phone] [facility] [address] [place] [address] Mindi Llanes PA-C [address] [facility] [address] [place], [place] [address] Social History Tobacco Use Types Packs/Day Years Used Date Smoking Tobacco: Never Smokeless Tobacco: Never Alcohol Use Standard Drinks/Week Comments Yes 0 (1 standard drink = 0.6 oz pur e alcohol) rare PHQ-2 Answer Date Recorded PHQ-2 Score 0 02/26/2020 Sex and Gender Information Value Date Recorded Sex Assigned at Female 03/04/2020 12:33 PM SOCIAL MEDIA EXECUTIVE Gender Identity Female 03/04/2020 12:33 PM SOCIAL MEDIA EXECUTIVE Sexual Orientation Straight 03/04/2020 12 :33 PM SOCIAL MEDIA EXECUTIVE documented as of this encounter Plan of Treatment Not on file documented as of this encounter Visit Diagnoses Not on filedocumented in this encounter Additional Health Concerns Assessment Noted Time PHQ-9 Depression Total Score: 0 02/26/20 20 1:30 PM SOCIAL MEDIA EXECUTIVE documented as of this encounter Care Teams Patient Observation Assistant Relationship Specialty Start Date End Date Nikita Gamble MD [address] [place] [address] PCP - General Family Medicine 05/26/[address] [place] [address] Equipment Maintenance Technician Dietitian, Registered 05/25/18 [place] [address] [place] [address] Assigned PCP 11/16/20 Mikki Blevins MD [address] [place] [address] Endocrinology, Diabetes, and Metabolism 05/07/21 [place] [address] Assigned Endocrinology Provider 08/02/21 01/28/23 Mindi Llanes PA-C [address] [facility] [address] [place] [address] Assigned Surgical Provider 09/26/21 documented as of this encounter
--- OUTSIDE RECORDS SUMMARY | 2023-04-21 09:58 | XMS_ITS | Encounter Summary ---
Author Name Unknown Organization [place] Address [address] [facility] [place] [address] Care Team Providers Care Regional Airline Pilot Name Role Phone Jocelyn Davidson RENATA Unavailable [phone] Nikita Gamble MD Primary Care Provider Naveen Casiano MD Unavailable [phone] Mikki Blevins MD Unavailable [phone] Mikki Blevins MD Unavailable [phone] Mindi Llanes PA-C Unavailable [phone] Encounter Details Date Type Department Care Team (Late st Contact Info) Description 09/16/2021 MyC Medical Advice [facility] Special[facility] [address] [address] Mikki Blevins MD [facility] [place], [place] [id number] Social History Tobacco Use Types Packs/Day Years Used Date Smoking Tobacco: Never Smokeless Tobacco: Never Alcohol Use Standard Drinks/Week Comments Yes 0 (1 standard drink = 0.6 oz pur e alcohol) rare PHQ-2 Answer Date Recorded PHQ-2 Score 0 02/26/2020 Sex and Gender Information Value Date Recorded Sex Assigned at Female 03/04/2020 12:33 PM ENTRY LEVEL ACCOUNT REPRESENTATIVE Gender Identity Female 03/04/2020 12:33 PM ENTRY LEVEL ACCOUNT REPRESENTATIVE Sexual Orientation Straight 03/04/2020 12 :33 PM ENTRY LEVEL ACCOUNT REPRESENTATIVE documented as of this encounter Plan of Treatment Not on file documented as of this encounter Visit Diagnoses Not on filedocumented in this encounter Additional Health Concerns Assessment Noted Time PHQ-9 Depression Total Score: 0 02/26/20 20 1:30 PM ENTRY LEVEL ACCOUNT REPRESENTATIVE documented as of this encounter Care Teams Regional Airline Pilot Relationship Specialty Start Date End Date Nikita Gamble MD [place] [address] [place] [address] PCP - General Family Medicine 05/26/[address] [place] [address] [place] [address] [place] Dietitian, Registered 05/25/18 [place] [address] [place] [address] Assigned PCP 11/16/20 Mikki Blevins MD [address] [place] [address] Endocrinology, Diabetes, and Metabolism 05/07/21 [place] [address] Assigned Endocrinology Provider 08/02/21 01/28/23 Mindi Llanes PA-C [address] [facility] [address] [place] [address] Assigned Surgical Provider 09/26/21 documented as of this encounter
--- OUTSIDE RECORDS SUMMARY | 2023-04-21 09:58 | XMS_ITS | Clinical Summary ---
Author Name Unknown Organization [facility] Address [place], [place] [address] Care Team Providers Care Transfer And Line Up Worker Name Role Phone None Unavailable Unavailable Pcp, No Primary Care Provider Unavailabl e [facility], [place] Unavailable Allergies No known active allergies Medications Medication Sig Dispensed Refills Start Date End Date Status aspirin enteric coated 81 mg tabletIndications:Di abetes mellitus type 1 (HC) Take 1 tablet by mouth once daily with a meal. 0 05/31/2013 Active citalopram (CELEXA) 40 mg tabletIndications:De pression with anxiety TAKE ONE TABLET BY MOUTH ONCE DAILY 90 tablet 0 10/13/2016 Active GLUCAGON EMERGENCY KIT, HUMAN, 1 mg kitIndications:Type 1 diabetes mellitus with other specified complication (HC) INJECT 1 MG INTRAMUSCULAR ONE TIME IF NEEDED FOR LOW BLOOD SUGAR AND UNABLE TO SWALLOW 2 Each 2 10/26/2016 Active tolterodine (DETROL) 2 mg tabletIndications:Ur inary incontinence, unspecified type TAKE ONE TABLET BY MOUTH TWICE DAILY 180 tablet 0 02/09/2017 Active estradiol (ESTRACE) 0.1 mg/g vaginal cream Insert 0.5 g into the vagina. Two days per week 3 10/28/2017 Active levothyroxine (SYNTHROID) 200 mcg tablet Take 200 mcg by mouth before breakfast. 0 Active pregabalin (LYRICA) 300 mg capsule Take 300 mg by mouth two times daily. 0 Active methocarbamoL (ROBAXIN) 500 mg tablet Take 500 mg by mouth 4 times daily if needed for Muscle Spasm. 0 Active amoxicillin (AMOXIL) 500 mg capsule Take 2,000 mg by mouth each time if needed (prior to dentist appointment). 0 Active oxybutynin XL (DITROPAN XL) 10 mg CR tablet Take 10 mg by mouth once daily. 0 Active phentermine (ADIPEX-P) 37.5 mg tablet Take 37.5 mg by mouth once daily. 0 Active calcium carbonate-vitamin D3, 600 mg-400 unit, 600 mg-10 mcg (400 unit) tablet Take 1 Tablet by mouth once daily with a meal. 0 Active lansoprazole (PREVACID) 30 mg capsule Take 30 mg by mouth two times daily before meals. 0 Active rizatriptan (MAXALT DIRECTOR LOSS PREVENTION) [address] 10 mg on the tongue 2 times daily if needed for Migraine. Give at minimum 2hrs apart. Max Dose: 30mg per 24hrs. 0 Active topiramate (TOPAMAX) 100 mg tablet Take 200 mg by mouth once daily. 0 Active amitriptyline (ELAVIL) 25 mg tablet Take 25-50 mg by mouth at bedtime if needed. 0 Active furosemide (LASIX) 40 mg tablet Take 40 mg by mouth once daily. 0 Active valACYclovir (VALTREX) 500 mg tablet Take 500 mg by mouth 2 times daily if needed. 0 Active vitamin B complex (B-COMPLEX VITAMIN) tablet Take 1 Tablet by mouth once daily. 0 Active docusate (COLACE) 100 mg capsule Take 100 mg by mouth once daily. 0 Active amLODIPine (NORVASC) 10 mg tabletIndications:HT N (hypertension) Take 1 Tablet (10 mg) by mouth once daily. 30 Tablet 0 02/06/2022 Active HYDROmorphone (DILAUDID) 2 mg tabletIndications:In tra-abdominal abscess (HC) Take 1 Tablet (2 mg) by mouth every 6 hours if needed for Pain. 10 Tablet 0 02/05/2022 Active insulin aspart, U-100, (NOVOLOG FLEXPEN) 100 unit/mL (3 mL) penIndications:Type 1 diabetes mellitus with hypoglycemia and without coma (HC) For use with insulin pump. Use up to 125 units per day. Basal rate 1.15 units per hour. Correction factor 25. Insulin to carbohydrate ratio 1: 8.5 0 02/05/2022 Active Active Problems Problem Noted Date Diagnosed Date Ascending cholangitis 02/05/2022 Septic shock 01/26/2022 Acute on chronic kidney failure 01/26/2022 Calculus of bile duct with acute cholangitis Cellulitis of left ring finger 09/13/2017 MRSA infection 09/12/2017 Oral pharyngeal candidiasis 06/30/2016 Overview: 06/30/2016 treated with Mycelex troches. Community acquired pneumonia 06/28/2016 Overview: 06/28/2016 chest radiograph: Reticulonodular airspace opacities throughout the right lung, concerning for pneumonia. The left lung appears clear. No pleural effusion. No pneumothorax. The heart is normal in size. Severe sepsis with acute organ dysfunction 06/28 Overview: 06/28/2016 lactate 5.7. CREATININE (mg/dL) Date Value 06/28/2016 2.91 (H) Acute kidney injury 06/28/2016 Overview: 11/28/2015 Creatinine 1.8 (baseline). CREATININE (mg/dL) Date Value 06/28/2016 2.91 (H) CREATININE (mg/dL) Date Value 07/01/2016 1.01 Diabetic ketoacidosis withou t coma associated with type 1 diabetes mellitus 06/28/2016 Chronic kidney disease, stage 3 06/28/2016 Overview: 06/28/2016 Baseline Creatinine 1.8. CREATININE (mg/dL) Date Value 07/01/2016 1.01 Herpes simplex vulvovaginitis 05/07/2016 Anxiety 11/06/2015 Peripheral edema 11/06/2015 Diastolic dysfunction without heart failure 10/26 Overview: 11/06/2015 echocardiogram: Normal left ventricular size.Normal left ventricular wall thickness. Hyperdynamic left ventricular systolic function with an estimated ejection fraction of 70-75%. Slight increase in LVOT with valsalva (hyperdynamic LV function). No regional wall motion abnormalities. Normal right ventricular size and function. Pseudonormal filling pattern of the left ventricle for age (stage 2 diastolic dysfunction). Normal right ventricular size and function. Trace aortic regurgitation. Mild mitral regurgitation. Trace tricuspid regurgitation.Estimated RV systolic pressure of 17.5 mmHg + RA pressure. Estimated EF: 70-75% Diabetes mellitus type 1, uncontrolled 6 Overview: HEMOGLOBIN A1C MONITORING (POCT) (%) Date Value 04/08/2016 10.0 (H) 06/05/2014 8.6 (H) Lantus and Novolog. Obesity 11/05/2015 Overview: 06/28/2016 Body mass index is 30.68 kg/(m^2). Diabetic peripheral neuropathy 10/28/2015 Methicillin resistant Staphylococcus aureus infe ction 12/30/2014 Overview: Overview: Beronica -4 (surveillance swab for health care worker, not associated with acute illness) [...] Overview: Seen on barium swallow, started on Prilosec 20 mg twice daily. GERD (gastroesophageal reflux disease) 4 Overview: On Prilosec 20 mg twice daily. Diabetes mellitus type 1 Overview: Diagnosed at age 8. History of neuropathy. Having frequent hypoglycemic episodes - 1-2 times daily and will drop down in to the mid 20-30's at times., 40-50's not unusual. Has cut back on her Lantus to 48 units at at bedtime. Developing hypoglycemic unawareness. Has a consult with Dr [place] in a few week. Met with Naveen, the tobacco prevention health educator, ~2 months ago. Hypothyroidism Overview: Levothyroxine. TSH (uIU/mL) Date Value 05/04/2016 0.24 (L) Knee osteoarthritis Overview: bilateral, has had injections. Hurts daily. Pain 7-8/10. Can't be seen at [facility], owes them money. They suggested 2 total knee replacements. Has osteophytes and bone spurs. Cortisone injections last 1-2 weeks. S/p nephrectomy Overview: Congenital disorder of kidney. Postoperative intra-abdominal abscess Resolved Problems Problem Noted Date Diagnosed Date Resolved Date Chest pain at rest 11/05/2015 7 Chronic kidney disease (CKD), Stage 3 11/05/2015 06/28/2016 Overview: CREATININE (mg/dL) Date Value 11/05/2015 1.86* Anticoagulation monitoring, INR range 2-3 06/17/2014 04/18/2015 Rib fractures 06/07/2014 11/05/2015 Altered level of consciousness 06/05/2014 11/05/2015 Hypoglycemia due to insulin 02/03/2014 11/05/2015 Seizure 02/03/2014 02/03/2014 Overview: Due to hypoglycemia with BS 39. Chronic renal disease, stage III 02/03/2014 06/28/2016 Overview: BUN and creatinine are 24 and 1.55 respectively, with an estimated creatinine clearance of 36 mL per minute. Her previous BUN and creatinine are 14 December 2013 was 23 and 1.45, with a creatinine clearance of 39 mL per minute. Prior to that on 18 June 2013 her BUN was 11 creatinine was 1.0, with an estimate creatinine clearance of 59 mL per minute. She has a history of a nephrectomy for congenital abnormality in 2005. Apparently the kidney looked very abnormal and there was pus in it the at the time of emergency surgery. Chronic constipation 05/31/2013 017 Anxiety 05/31/2013 05/31/2013 control 05/31/2013 06/28/2016 Immunizations Name Administration Dates Next Due Hepatitis B (Adult) 04/16/2014,10/18/2013,2013 Influenza, IIV4 01/12/2016,12/26/2013 Td, Preservative Free (age >= 7 Years) 6 Tdap 08/24/2005 Tuberculin (PPD) 05/31/2013 Family History Medical History Relation Name Comments Diabetes Father Other Father emphysema, AAA Heart Disease Maternal Grandmother Good Health Mother Relation Name Status Comments Father 2005 Maternal Grandmother Mother Social History Tobacco Use Types Packs/Day Years Used Date Smoking Tobacco: Never Smokeless Tobacco: Never Tobacco Cessation:Counseling Given: Yes Alcohol Use Standard Drinks/Week Comments No 0 (1 standard drink = 0.6 oz pur e alcohol) very rare Social Connections Answer Date Recorded Frequency of Communication with Friends and Fami ly Not on file 07/06/2022 Sex and Gender Information Value Date Recorded Sex Assigned at Not on file Gender Identity Not on file Sexual Orientation Not on file Obstetrics History Para Term AB IAB SAB Ectopic Multiple Livin g Live Births 0 0 0 0 0 0 0 0 0 0 Last Filed Vital Signs Vital Sign Reading Time Taken Comments Blood Pressure 133/60 03/10/2022 11:30 AM BEATER HEAD Pulse 63 03/10/2022 11:30 AM BEATER HEAD Temperature 36.5 ??C (97.7 ??F) 03/10/2022 9:35 AM CS T Respiratory Rate 18 03/10/2022 11:15 AM BEATER HEAD Oxygen Saturation 97% 03/10/2022 11:30 AM BEATER HEAD Inhaled Oxygen Concentration - - Weight 129 kg (284 lb 6.3 oz) 01/26/2022 6:00 AM CDT Height 180.3 cm (5' 11) 01/25/2022 2:00 AM CDT Body Mass Index 39.66 01/25/2022 2:00 AM CDT Plan of Treatment Health Maintenance Due Date Last Done Comments HIV for age 15-65 02/29/1980 Hepatitis C screening for age 18-79 1983 Colonoscopy through age 75 2010 Mammogram for age 45-75 2010 Zoster (shingles) series for age 50+ (1 of 2) 2015 Depression screening for age 12+ 05/04/2017 05/04/2016, 01/12/2016, 01/12/2016, Additional history exists BMI (ht and wt on same day) for age 18+ 06/28/2017 06/28/2016, 01/12/2016, 11/05/2015, Additional history exists Lipids for age 45-75 06/22/2018 06/22/2013 Pap test for age 21-65 06/09/2020 06/09/2017, 2017 COVID-19 vaccine series (2022- season) 2022 06/12/2020, 05/22/2020 Influenza for age 50-64 11/26/2022 01/12/2016, 12/26 Tetanus booster 01/11/2026 01/12/2016, 08/24/2005 Tdap Completed 08/24/2005 Pneumococcal series for age 6-64 Aged Out No longer eligible based on patient's age to complete this topic Medical Devices Implanted Type Area Coremaking Machine Operator Device Identifier Shelf Expiration Date Model / Serial / Lot Stent Biliary [id number] Advanix Duodenal Bend Plst Implanted:Qty: 1 on 01/25/2022 by Jonathan Donaldson MD at [facility] N/A: Common Bile Duct 10/29/2023 [id number] / / [id number] Description:Stent Biliary 10 Frx5cm Advanix Duodenal Bend Plst Additional Health Concerns Infection Onset Date Last Indicated MRSA Clearance Comment:Infection Control Note: Hx of MRSA 09/16/2017 source unknown, surveillance criteria met, no need for further testing or isolation precautions. Do not delete or resolve the Infection Flag. 03/10/2022 03/10/2022 Advance Directives Latest Code Status on File Code Status Date Activated Date Inactivated Comments Full Code 03/10/2022 8:46 AM 03/10/2022 2:11 PM Question Answer Comments Code Status Discussion: Unable to Assess Preferences, Provider to review later Code Status History Code Status Date Activated Date Inactivated Comments Full Code 01/25/2022 1:56 AM 02/05/2022 6:03 PM Question Answer Comments Code Status Discussion: Reviewed Preferences Full Code 01/25/2022 1:38 AM 01/25/2022 1:56 AM Question Answer Comments Code Status Discussion: Unable to Assess Preferences, Provider to review later Full Code 09/14/2017 9:32 AM 09/19/2017 11:28 PM Question Answer Comments Code Status Discussion: Discussed Full Code 06/28/2016 3:13 PM 07/01/2016 4:08 PM Question Answer Comments Code Status Discussion: Not Discussed Care Teams Transfer And Line Up Worker Relationship Specialty Start Date End Date Pcp, No . PCP - General 12/06/18 None . 01/04/13 [facility] [address] [address] 02/05/22
--- OUTSIDE RECORDS SUMMARY | 2023-04-21 09:59 | XMS_ITS | Encounter Summary ---
Author Name Unknown Organization [facility] Address [address] [facility] [place] [address] Care Team Providers Care Harbor Patrol Police Name Role Phone Annette Alvarezmamadou ALVAREZ PLATER PRINTED CIRCUIT BOARD PANELS Unavailable Goran Lloyd MD Primary Care Provider [phone] Unavailable [phone] Tamar Murphy APRN PLATER PRINTED CIRCUIT BOARD PANELS Unavailable Nikita Gamble MD Primary Care Provider [phone] Naveen Casiano MD Unavailable [phone] Harlan Lin MD Unavailable Milagro vailable Mikki Blevins MD Unavailable [phone] Mikki Blevins MD Unavailable [phone] Mindi Llanes PA-C Unavailable [phone] Encounter Details Date Type Department Care Team (Late st Contact Info) Description 05/26/2018 [facility] [address] [address] Jocelyn Davidson, RENATA [address] [place] [address] Social History Tobacco Use Types Packs/Day Years Used Date Smoking Tobacco: Never Smokeless Tobacco: Never Alcohol Use Standard Drinks/Week Comments Yes 0 (1 standard drink = 0.6 oz pur e alcohol) rare Sex and Gender Information Value Date Recorded Sex Assigned at Female 03/04/2020 12:33 PM CONTROL AREA OPERATOR Gender Identity Female 03/04/2020 12:33 PM CONTROL AREA OPERATOR Sexual Orientation Straight 03/04/2020 12 :33 PM CONTROL AREA OPERATOR documented as of this encounter Plan of Treatment Not on file documented as of this encounter Visit Diagnoses Not on filedocumented in this encounter Additional Health Concerns Infection Onset Date Last Indicated Resolved Time Rule Out COVID-19 02/26/2020 02/26/2020 02/27/2020 4:32 PM CONTROL AREA OPERATOR documented as of this encounter Care Teams Harbor Patrol Police Relationship Specialty [place] [address] [place] [address] PCP - General Family Practice 12/29/17 05/21/20 [place] [address] [facility] [place] [address] PCP - General Family Medicine 05/26/20 Annette Alvarez APRN PLATER PRINTED CIRCUIT BOARD PANELS [address] [place], [place] [id number] Nurse Practitioner Clinical Nurse Specialist 03/22/17 10/21/[address] [place] [facility] [address] [place] [address] SHARAN CARSON [address] Director Airport Dietitian, Registered 05/25/18 Tamar Murphy APRN PLATER PRINTED CIRCUIT BOARD PANELS [address] [id number] Assigned PCP 02/08/20 11/15/20 [place] [address] [place], [place] [id number] Assigned PCP 11/16/20 Harlan Lin MD NO INFO AVAILABLE Assigned Endocrinology Provider 12/07/20 08/01/21 Mikki Blevins MD [address] [place] [address] Endocrinology, Diabetes, and Metabolism 05/07/21 [place] [address] Assigned Endocrinology Provider 08/02/21 01/28/23 Mindi Llanes PA-C [address] [place] [address] Assigned Surgical Provider 09/26/21 documented as of this encounter
--- OUTSIDE RECORDS SUMMARY | 2023-04-21 09:59 | XMS_ITS | Encounter Summary ---
Author Name Unknown Organization [facility] Address [address] [facility] [place] [address] Care Team Providers Care Supervisor Production Managing Name Role Phone Annette Alvarezmamadou THAKURN REGISTERED MIDWIFE Unavailable Goran Lloyd MD Primary Care Provider Jocelyn Davidson RD Unavailable [phone] Tamar Murphy APRN REGISTERED MIDWIFE Unavailable Nikita Gamble MD Primary Care Provider Naveen Casiano MD Unavailable [phone] Harlan Lin MD Unavailable Milagro vailable Mikki Blevins MD Unavailable [phone] Mikki Blevins MD Unavailable [phone] Mindi Llanes PA-C Unavailable [phone] Encounter Details Date Type Department Care Team (Late st Contact Info) Description 06/29/2018 [facility] [place] [address] [address] Mimi Cyr CMA Social History Tobacco Use Types Packs/Day Years Used Date Smoking Tobacco: Never Smokeless Tobacco: Never Alcohol Use Standard Drinks/Week Comments Yes 0 (1 standard drink = 0.6 oz pur e alcohol) rare Sex and Gender Information Value Date Recorded Sex Assigned at Female 03/04/2020 12:33 PM MOLD CHIPPER Gender Identity Female 03/04/2020 12:33 PM MOLD CHIPPER Sexual Orientation Straight 03/04/2020 12 :33 PM MOLD CHIPPER documented as of this encounter Plan of Treatment Not on file documented as of this encounter Visit Diagnoses Not on filedocumented in this encounter Additional Health Concerns Infection Onset Date Last Indicated Resolved Time Rule Out COVID-19 02/26/2020 02/26/2020 02/27/2020 4:32 PM MOLD CHIPPER documented as of this encounter Care Teams Supervisor Production Managing Relationship Specialty [place] [address] [place] [address] PCP - General Family Practice 12/29/17 05/21/20 [place] [address] [facility] [place] [address] PCP - General Family Medicine 05/26/20 Annette Alvarez APRN REGISTERED MIDWIFE [address] [place] [address] Nurse Practitioner Clinical Nurse Specialist 03/22/17 10/21/[address] [place] [address] Road Marker Dietitian, Registered 05/25/18 Tamar Murphy APRN REGISTERED MIDWIFE [address] [facility] [place] [address] Assigned PCP 02/08/20 11/15/20 [place] [address] [place] [address] Assigned PCP 11/16/20 Harlan Lin MD NO INFO AVAILABLE Assigned Endocrinology Provider 12/07/20 08/01/21 Mikki Blevins MD [address] [place] [address] Endocrinology, Diabetes, and Metabolism 05/07/21 [place] [address] Assigned Endocrinology Provider 08/02/21 01/28/23 Mindi Llanes PA-C [address] [place] [address] Assigned Surgical Provider 09/26/21 documented as of this encounter
--- OUTSIDE RECORDS SUMMARY | 2023-04-21 09:59 | XMS_ITS | Encounter Summary ---
Author Name Unknown Organization [facility] Address [address] [facility] [place] [address] Care Team Providers Care Mirror Machine Feeder Name Role Phone Annette Alvarezmamadou ALVAREZ SPRAYING MACHINE OPERATOR Unavailable Goran Lloyd MD Primary Care Provider Jocelyn Davidson RD Unavailable [phone] Tamar Murphy APRN SPRAYING MACHINE OPERATOR Unavailable Nikita Gamble MD Primary Care Provider [phone] Naveen Casiano MD Unavailable [phone] Harlan Lin MD Unavailable Milagro vailable Mikki Blevins MD Unavailable [phone] Mikki Blevins MD Unavailable [phone] Mindi Llanes PA-C Unavailable [phone] Encounter Details Date Type Department Care Team (Late st Contact Info) Description 2020 [facility] [address] [place] [address] Tamar Murphy APRN SPRAYING MACHINE OPERATOR [address] [place], [place] [id number] Social History Tobacco Use Types Packs/Day Years Used Date Smoking Tobacco: Never Smokeless Tobacco: Never Alcohol Use Standard Drinks/Week Comments Yes 0 (1 standard drink = 0.6 oz pur e alcohol) rare PHQ-2 Answer Date Recorded PHQ-2 Score 0 02/26/2020 Sex and Gender Information Value Date Recorded Sex Assigned at Female 03/04/2020 12:33 PM AIX ADMINISTRATOR Gender Identity Female 03/04/2020 12:33 PM AIX ADMINISTRATOR Sexual Orientation Straight 03/04/2020 12 :33 PM AIX ADMINISTRATOR COVID-19 Exposure Response Date Recorded In the last month, have you been in contact with someone who was confirmed or suspected to have Coronavirus / COVID-19? No / Unsure 02/03/2020 12:21 PM AIX ADMINISTRATOR documented as of this encounter Plan of Treatment Not on file documented as of this encounter Visit Diagnoses Not on filedocumented in this encounter Additional Health Concerns Assessment Noted Time PHQ-9 Depression Total Score: 0 02/26/20 1:30 PM AIX ADMINISTRATOR documented as of this encounter Care Teams Mirror Machine Feeder Relationship Specialty [place] [address] [place] [address] PCP - General Family Practice 12/29/17 05/21/20 [place] [address] [place] [address] PCP - General Family Medicine 05/26/20 Annette Alvarez APRN SPRAYING MACHINE OPERATOR [address] [place] [address] Nurse Practitioner Clinical Nurse Specialist 03/22/17 10/21/[address] [facility] [address] [place] [address] SHARAN CARSON [address] Wind Project Manager Dietitian, Registered 05/25/18 Tamar Murphy APRN SPRAYING MACHINE OPERATOR [address] [place] [address] Assigned PCP 02/08/20 11/15/20 [place] [address] [facility] [place] [address] Assigned PCP 11/16/20 Harlan Lin MD NO INFO AVAILABLE Assigned Endocrinology Provider 12/07/20 08/01/21 Mikki Blevins MD [address] [place] [address] Endocrinology, Diabetes, and Metabolism 05/07/21 [place] [address] Assigned Endocrinology Provider 08/02/21 01/28/23 Mindi Llanes PA-C [address] [facility] [place] [address] [place] [address] Assigned Surgical Provider 09/26/21 documented as of this encounter
--- OUTSIDE RECORDS SUMMARY | 2023-04-21 09:59 | XMS_ITS | Encounter Summary ---
Author Name Unknown Organization [place] Address [address] [facility] [place] [address] Care Team Providers Care Ceramist Name Role Phone Annette Alvarezmamadou ALVAREZ ISSUE CLERK Unavailable Goran Lloyd MD Primary Care Provider Jocelyn Davidson RD Unavailable [phone] Tamar Murphy APRN ISSUE CLERK Unavailable Nikita Gamble MD Primary Care Provider Naveen Casiano MD Unavailable [phone] Harlan Lin MD Unavailable Milagro vailable Mikki Blevins MD Unavailable [phone] Mikki Blevins MD Unavailable [phone] Mindi Llanes PA-C Unavailable [phone] Encounter Details Date Type Department Care Team (Late st Contact Info) Description 07/05/2018 MyC Medical Advice [facility] [address] [facility] [address] [place] [address] Jocelyn Davidson, RENATA [facility] - [address] [place] [address] Social History Tobacco Use Types Packs/Day Years Used Date Smoking Tobacco: Never Smokeless Tobacco: Never Alcohol Use Standard Drinks/Week Comments Yes 0 (1 standard drink = 0.6 oz pur e alcohol) rare Sex and Gender Information Value Date Recorded Sex Assigned at Female 03/04/2020 12:33 PM PAYROLL TAX SPECIALIST Gender Identity Female 03/04/2020 12:33 PM PAYROLL TAX SPECIALIST Sexual Orientation Straight 03/04/2020 12 :33 PM PAYROLL TAX SPECIALIST documented as of this encounter Plan of Treatment Not on file documented as of this encounter Visit Diagnoses Not on filedocumented in this encounter Additional Health Concerns Infection Onset Date Last Indicated Resolved Time Rule Out COVID-19 02/26/2020 02/26/2020 02/27/2020 4:32 PM PAYROLL TAX SPECIALIST documented as of this encounter Care Teams Ceramist Relationship Specialty [place] [address] [place] [address] PCP - General Family Practice 12/29/17 05/21/20 [place] [address] [place] [address] PCP - General Family Medicine 05/26/20 Annette Alvarez APRN ISSUE CLERK [address] [place] [address] Nurse Practitioner Clinical Nurse Specialist 03/22/17 10/21/[address] [facility] [address] [place] [address] [place] [address] Strategy Specialist Dietitian, Registered 05/25/18 Tamar Murphy APRN ISSUE CLERK [address] [place] [address] Assigned PCP 02/08/20 11/15/20 [place] [address] [place] [address] Assigned PCP 11/16/20 Harlan Lin MD NO INFO AVAILABLE Assigned Endocrinology Provider 12/07/20 08/01/21 Mikki Blevins MD [address] [place] [address] Endocrinology, Diabetes, and Metabolism 05/07/21 [place] [address] Assigned Endocrinology Provider 08/02/21 01/28/23 Mindi Llanes PA-C [address] [place] [address] Assigned Surgical Provider 09/26/21 documented as of this encounter
--- OUTSIDE RECORDS SUMMARY | 2023-04-21 09:59 | XMS_ITS | Encounter Summary ---
Author Name Unknown Organization [place] Address [address] [place] [address] Care Team Providers Care Power Chisel Operator Name Role Phone Annette Alvarez APRN FAUCETS ASSEMBLER Unavailable Jocelyn Davidson RD Unavailable [phone] Tamar Murphy APRN FAUCETS ASSEMBLER Unavailable Nikita Gamble MD Primary Care Provider Naveen Casiano MD Unavailable [phone] Harlan Lin MD Unavailable Milagro vailable Mikki Blevins MD Unavailable [phone] Mikki Blevins MD Unavailable [phone] Mindi Llanes PA-C Unavailable [phone] Reason for Visit * Reason Comments Medication Refill Encounter Details Date Type Department Care Team (Late st Contact Info) Description 06/05/2020 Refill [facility] [address] [place] [id number] Annette Alvarez APRN FAUCETS ASSEMBLER [address] [place], [place] [id number] Medication Refill Social History Tobacco Use Types Packs/Day Years Used Date Smoking Tobacco: Never Smokeless Tobacco: Never Alcohol Use Standard Drinks/Week Comments Yes 0 (1 standard drink = 0.6 oz pur e alcohol) rare PHQ-2 Answer Date Recorded PHQ-2 Score 0 02/26/2020 Sex and Gender Information Value Date Recorded Sex Assigned at Female 03/04/2020 12:33 PM LEAD CONSULTANT Gender Identity Female 03/04/2020 12:33 PM LEAD CONSULTANT Sexual Orientation Straight 03/04/2020 12 :33 PM LEAD CONSULTANT documented as of this encounter Miscellaneous Notes * Telephone Encounter - Jasmyn Lee RN - 06/05/2020 11:52 AM LEAD CONSULTANT Prescription approved per [facility] Refill Protocol. Jasmyn Lee RN [facility] -- Triage Nurse CONSULTANT documented in this encounter Plan of Treatment Not on file documented as of this encounter Visit Diagnoses Diagnosis Hypothyroidism due to acquired atrophy of thyroid documented in this encounter Additional Health Concerns Assessment Noted Time PHQ-9 Depression Total Score: 0 02/26/20 20 1:30 PM LEAD CONSULTANT documented as of this encounter Care Teams Power Chisel Operator Relationship Specialty [place] [address] [place] [address] PCP - General Family Medicine 05/26/20 Annette Alvarez APRN FAUCETS ASSEMBLER [address] [place] [address] Nurse Practitioner Clinical Nurse Specialist 03/22/17 10/21/[address] [facility] [address] [place] [address] [place] [address] Wheel Truer Dietitian, Registered 05/25/18 Tamar Murphy APRN FAUCETS ASSEMBLER [address] [place] [address] Assigned PCP 02/08/20 11/15/20 [place] [address] [facility] [place] [address] Assigned PCP 11/16/20 Harlan Lin MD NO INFO AVAILABLE Assigned Endocrinology Provider 12/07/20 08/01/21 Mikki Blevins MD [address] [place] [address] Endocrinology, Diabetes, and Metabolism 05/07/21 Mikki Blevins [place] [address] Assigned Endocrinology Provider 08/02/21 01/28/23 Mindi Llanes PA-C [address] [place] [address] Assigned Surgical Provider 09/26/21 documented as of this encounter
--- OUTSIDE RECORDS SUMMARY | 2023-04-21 09:59 | XMS_ITS | Encounter Summary ---
Author Name Unknown Organization [place] Address [address] [facility] [place] [address] Care Team Providers Care Rubber Liner Name Role Phone Annette Alvarezmamadou THAKURN GOSPEL SINGER Unavailable [phone] Goran Lloyd MD Primary Care Provider Jocelyn Davidson RD Unavailable [phone] Tamar Murphy APRN GOSPEL SINGER Unavailable Nikita Gamble MD Primary Care Provider Naveen Casiano MD Unavailable [phone] Harlan Lin MD Unavailable Milagro vailable Mikki Blevins MD Unavailable [phone] Mikki Blevins MD Unavailable [phone] Mindi Llanes PA-C Unavailable [phone] Encounter Details Date Type Department Care Team (Late st Contact Info) Description 10/17/2018 [facility] [place] [facility] [address] [address] Ashok Bella, RN Social History Tobacco Use Types Packs/Day Years Used Date Smoking Tobacco: Never Smokeless Tobacco: Never Alcohol Use Standard Drinks/Week Comments Yes 0 (1 standard drink = 0.6 oz pur e alcohol) rare Sex and Gender Information Value Date Recorded Sex Assigned at Female 03/04/2020 12:33 PM DROP HAMMER OPERATOR HELPER Gender Identity Female 03/04/2020 12:33 PM DROP HAMMER OPERATOR HELPER Sexual Orientation Straight 03/04/2020 12 :33 PM DROP HAMMER OPERATOR HELPER documented as of this encounter Plan of Treatment Not on file documented as of this encounter Visit Diagnoses Not on filedocumented in this encounter Additional Health Concerns Infection Onset Date Last Indicated Resolved Time Rule Out COVID-19 02/26/2020 02/26/2020 02/27/2020 4:32 PM DROP HAMMER OPERATOR HELPER documented as of this encounter Care Teams Rubber Liner Relationship Specialty [place] [address] [place] [address] PCP - General Family Practice 12/29/17 05/21/20 [place] [address] [facility] [place] [address] PCP - General Family Medicine 05/26/20 Annette Alvarez APRN GOSPEL SINGER [address] [place] [address] Nurse Practitioner Clinical Nurse Specialist 03/22/17 10/21/[address] [place] [address] Healthcare Administration Intern Dietitian, Registered 05/25/18 Tamar uMrphy APRN GOSPEL SINGER [address] [facility] [place] [address] Assigned PCP 02/08/20 11/15/20 [place] [address] [place] [address] Assigned PCP 11/16/20 Harlan Lin MD NO INFO AVAILABLE Assigned Endocrinology Provider 12/07/20 08/01/21 Mikki Blevins MD [address] [place] [address] Endocrinology, Diabetes, and Metabolism 05/07/21 [place] [address] Assigned Endocrinology Provider 08/02/21 01/28/23 Mindi Llanes PA-C [address] [place] [address] Assigned Surgical Provider 09/26/21 documented as of this encounter
--- OUTSIDE RECORDS SUMMARY | 2023-04-21 09:59 | XMS_ITS | Encounter Summary ---
Author Name Unknown Organization [place] Address [address] [facility] [place] [address] Care Team Providers Care Legal Referee Name Role Phone Jocelny Davidson RENATA Unavailable [phone] Nikita Gamble MD Primary Care Provider Naveen Casiano MD Unavailable [phone] Harlan Lin MD Unavailable Milagro vailable Mikki Blevins MD Unavailable [phone] Mikki Blevins MD Unavailable [phone] Mindi Llanes PA-C Unavailable [phone] Encounter Details Date Type Department Care Team (Late st Contact Info) Description 12/02/[address] [facility] Medical Advice [address] [place] [phone] Tamar Tristan Social History Tobacco Use Types Packs/Day Years Used Date Smoking Tobacco: Never Smokeless Tobacco: Never Alcohol Use Standard Drinks/Week Comments Yes 0 (1 standard drink = 0.6 oz pur e alcohol) rare PHQ-2 Answer Date Recorded PHQ-2 Score 0 02/26/2020 Sex and Gender Information Value Date Recorded Sex Assigned at Female 03/04/2020 12:33 PM CLINICAL INVESTIGATOR Gender Identity Female 03/04/2020 12:33 PM CLINICAL INVESTIGATOR Sexual Orientation Straight 03/04/2020 12 :33 PM CLINICAL INVESTIGATOR COVID-19 Exposure Response Date Recorded In the last month, have you been in contact with someone who was confirmed or suspected to have Coronavirus / COVID-19? No / Unsure 12/03/2020 8:01 PM CDT documented as of this encounter Plan of Treatment Not on file documented as of this encounter Visit Diagnoses Not on filedocumented in this encounter Additional Health Concerns Assessment Noted Time PHQ-9 Depression Total Score: 0 02/26/20 20 1:30 PM CLINICAL INVESTIGATOR documented as of this encounter Care Teams Legal Referee Relationship Specialty Start Date End Date Nikita Gamble MD [facility] [address] [place] [address] [place] [address] PCP - General Family Medicine 05/26/[address] [place] [address] Biomedical Engineering Director Dietitian, Registered 05/25/18 [place] [address] [place] [address] Assigned PCP 11/16/20 Harlan Lin MD NO INFO AVAILABLE Assigned Endocrinology Provider 12/07/20 08/01/21 Mikki Blevins MD [address] [place] [address] Endocrinology, Diabetes, and Metabolism 05/07/21 [place] [address] Assigned Endocrinology Provider 08/02/21 01/28/23 Mindi Llanes PA-C [address] [facility] [place] [address] [place] [address] Assigned Surgical Provider 09/26/21 documented as of this encounter
--- OUTSIDE RECORDS SUMMARY | 2023-04-21 09:59 | XMS_ITS | Encounter Summary ---
Author Name Unknown Organization [place] Address [address] [facility] [place] [address] Care Team Providers Care Steamer Operator Name Role Phone Jocelyn Davidson RENATA Unavailable [phone] Nikita Gamble MD Primary Care Provider Naveen Casiano MD Unavailable [phone] Harlan Lin MD Unavailable Milagro vailable Mikki Blevins MD Unavailable [phone] Mikki Blevins MD Unavailable [phone] Mindi Llanes PA-C Unavailable [phone] Reason for Visit * Reason Onset Date Comments Diabetes Education 12/05/2020 Encounter Details Date Type Department Care Team (Late st Contact Info) Description 12/05/2020 [facility] [place] [facility] [place] [address] Hernando Gray Diabetes Education Social History Tobacco Use Types Packs/Day Years Used Date Smoking Tobacco: Never Smokeless Tobacco: Never Alcohol Use Standard Drinks/Week Comments Yes 0 (1 standard drink = 0.6 oz pur e alcohol) rare PHQ-2 Answer Date Recorded PHQ-2 Score 0 02/26/2020 Sex and Gender Information Value Date Recorded Sex Assigned at Female 03/04/2020 12:33 PM DISABILITY ADVOCATE Gender Identity Female 03/04/2020 12:33 PM DISABILITY ADVOCATE Sexual Orientation Straight 03/04/2020 12 :33 PM DISABILITY ADVOCATE COVID-19 Exposure Response Date Recorded In the last month, have you been in contact with someone who was confirmed or suspected to have Coronavirus / COVID-19? No / Unsure 12/03/2020 8:01 PM CDT documented as of this encounter Miscellaneous Notes * Telephone Encounter - Hernando Gray - 12/08/2020 8:26 AM CDT Diabetes Education Scheduling Outreach #2: Call to patient to schedule. Patient declined to schedule and will call back at a better time. Hernando Gray [facility] Sched[facility] documented in this encounter Plan of Treatment Not on file documented as of this encounter Visit Diagnoses Not on filedocumented in this encounter Additional Health Concerns Assessment Noted Time PHQ-9 Depression Total Score: 0 02/26/20 20 1:30 PM DISABILITY ADVOCATE documented as of this encounter Care Teams Steamer Operator Relationship Specialty Start Date End Date Nikita Gamble MD [address] [place] [address] PCP - General Family Medicine 05/26/[address] [place] [address] Clutch Rebuilder Dietitian, Registered 05/25/18 [place] [address] [place] [address] Assigned PCP 11/16/20 Harlan Lin MD NO INFO AVAILABLE Assigned Endocrinology Provider 12/07/20 08/01/21 Mikki Blevins MD [address] [place] [address] Endocrinology, Diabetes, and Metabolism 05/07/21 [place] [address] Assigned Endocrinology Provider 08/02/21 01/28/23 Mindi Llanes PA-C [address] [place] [address] Assigned Surgical Provider 09/26/21 documented as of this encounter
--- OUTSIDE RECORDS SUMMARY | 2023-04-21 09:59 | XMS_ITS | Encounter Summary ---
Author Name Unknown Organization [place] Address [address] [facility] [place] [address] Care Team Providers Care Specialty Trimmer Name Role Phone Jocelyn Davidson RENATA Unavailable [phone] Nikita Gamble MD Primary Care Provider Naveen Casiano MD Unavailable [phone] Harlan Lin MD Unavailable Milagro vailable Mikki Blevins MD Unavailable [phone] Mikki Blevins MD Unavailable [phone] Mindi Llanes PA-C Unavailable [phone] Reason for Visit * Reason Onset Date Comments Diabetes Education 12/05/2020 Encounter Details Date Type Department Care Team (Late st Contact Info) Description 12/05/2020 Telephone [facility] Endocrinology [address] [place] [address] Harlan Lin MD NO INFO AVAILABLE Diabetes Education Social History Tobacco Use Types Packs/Day Years Used Date Smoking Tobacco: Never Smokeless Tobacco: Never Alcohol Use Standard Drinks/Week Comments Yes 0 (1 standard drink = 0.6 oz pur e alcohol) rare PHQ-2 Answer Date Recorded PHQ-2 Score 0 02/26/2020 Sex and Gender Information Value Date Recorded Sex Assigned at Female 03/04/2020 12:33 PM CUT OFF SAWYER Gender Identity Female 03/04/2020 12:33 PM CUT OFF SAWYER Sexual Orientation Straight 03/04/2020 12 :33 PM CUT OFF SAWYER COVID-19 Exposure Response Date Recorded In the last month, have you been in contact with someone who was confirmed or suspected to have Coronavirus / COVID-19? No / Unsure 12/03/2020 8:01 PM CDT documented as of this encounter Miscellaneous Notes * Telephone Encounter - Hernando Gray - 12/05/2020 8:11 AM CDT Diabetes Education Scheduling Outreach #1: Call to patient to schedule. Left message with phone number to call to schedule, if pt calls back to schedule please schedule with Jocelyn Davidson. Plan for 2nd outreach attempt within 1 week. Hernando Gray [facility] Sched[facility] documented in this encounter Plan of Treatment Not on file documented as of this encounter Visit Diagnoses Not on filedocumented in this encounter Additional Health Concerns Assessment Noted Time PHQ-9 Depression Total Score: 0 02/26/20 20 1:30 PM CUT OFF SAWYER documented as of this encounter Care Teams Specialty Trimmer Relationship Specialty Start Date End Date Nikita Gamble MD [facility] - [address] [place], [place] [id number] PCP - General Family Medicine 05/26/[address] [facility] - [address] [place] [address] Body Shop Supervisor Dietitian, Registered 05/25/18 [place] [address] [place] [address] Assigned PCP 11/16/20 Harlan Lin MD NO INFO AVAILABLE Assigned Endocrinology Provider 12/07/20 08/01/21 Mikki Blevins MD [address] [place] [address] Endocrinology, Diabetes, and Metabolism 05/07/21 Mikki Blevins MD [facility] [place] [address] Assigned Endocrinology Provider 08/02/21 01/28/23 Mindi Llanes PA-C [address] [place] [address] Assigned Surgical Provider 09/26/21 documented as of this encounter
--- OUTSIDE RECORDS SUMMARY | 2023-04-21 09:59 | XMS_ITS | Encounter Summary ---
Author Name Unknown Organization [place] Address [address] [place] [address] Care Team Providers Care Meat And Seafood Manager Name Role Phone Annette Alvarezmamadou ALVAREZ PLAYGROUND OFFICIAL Unavailable Jocelyn Davidson RD Unavailable [phone] Tamar Murphy ELECTRIC LOCOMOTIVE CRANE OPERATOR PLAYGROUND OFFICIAL Unavailable [phone] Nikita Gamble MD Primary Care Provider [phone] Naveen Casiano MD Unavailable [phone] Harlan Lin MD Unavailable Milagro vailable Mikki Blevins MD Unavailable [phone] Mikki Blevins MD Unavailable [phone] Mindi LlanesC Unavailable [phone] Encounter Details Date Type Department Care Team (Late st Contact Info) Description 09/06/2020 MyC Medical Advice [facility] [address] [facility] [address] [place] [address] Jocelyn Davidson, [facility] [address] [place] [address] [place] [address] Social History Tobacco Use Types Packs/Day Years Used Date Smoking Tobacco: Never Smokeless Tobacco: Never Alcohol Use Standard Drinks/Week Comments Yes 0 (1 standard drink = 0.6 oz pur e alcohol) rare PHQ-2 Answer Date Recorded PHQ-2 Score 0 02/26/2020 Sex and Gender Information Value Date Recorded Sex Assigned at Female 03/04/2020 12:33 PM FUEL CONVERSION TECHNICIAN Gender Identity Female 03/04/2020 12:33 PM FUEL CONVERSION TECHNICIAN Sexual Orientation Straight 03/04/2020 12 :33 PM FUEL CONVERSION TECHNICIAN documented as of this encounter Miscellaneous Notes * Telephone Encounter - Naveen Casiano MD - 09/08/2020 12:23 PM CDT Care everywhere from [place] next visit Naveen Casiano MD * Telephone Encounter - Corina Escobar RD - 09/08/2020 11:07 AM CDT Forwarded Carvoy[employer]t message to Tamar Murphy, who I believe was the intended recipient. Corina Escobar RD, LD, CDE documented in this encounter Plan of Treatment Not on file documented as of this encounter Visit Diagnoses Not on filedocumented in this encounter Additional Health Concerns Assessment Noted Time PHQ-9 Depression Total Score: 0 02/26/20 20 1:30 PM FUEL CONVERSION TECHNICIAN documented as of this encounter Care Teams Meat And Seafood Manager Relationship Specialty [place] [address] [facility] [place] [address] PCP - General Family Medicine 05/26/20 Annette Alvarez APRN PLAYGROUND OFFICIAL [address] [place] [address] Nurse Practitioner Clinical Nurse Specialist 03/22/17 10/21/[address] [place] [address] Fruit And Vegetable Classer Dietitian, Registered 05/25/18 Tamar Murphy APRN PLAYGROUND OFFICIAL [address] [place] [address] Assigned PCP 02/08/20 11/15/20 [place] [address] [place] [address] Assigned PCP 11/16/20 Harlan Lin MD NO INFO AVAILABLE Assigned Endocrinology Provider 12/07/20 08/01/21 Mikki Blevins MD [address] [place] [address] Endocrinology, Diabetes, and Metabolism 05/07/21 Mikki [place]ins [place] [address] Assigned Endocrinology Provider 08/02/21 01/28/23 Mindi Llanes PA-C [address] [place] [address] Assigned Surgical Provider 09/26/21 documented as of this encounter
--- OUTSIDE RECORDS SUMMARY | 2023-04-21 09:59 | XMS_ITS | Encounter Summary ---
Author Name Unknown Organization [place] Address [address] [facility] [place] [address] Care Team Providers Care Hasher Operator Name Role Phone Annette Alvarezmamadou ALVAREZ BOTTLER HELPER Unavailable Goran Lloyd MD Primary Care Provider Jocelyn Davidson RD Unavailable [phone] Tamar Murphy APRN BOTTLER HELPER Unavailable [phone] Nikita Gamble MD Primary Care Provider Naveen Casiano MD Unavailable [phone] Harlan Lin MD Unavailable Milagro vailable Mikki Blevins MD Unavailable [phone] Mikki Blevins MD Unavailable [phone] Mindi Llanes PA-C Unavailable [phone] Encounter Details Date Type Department Care Team (Late st Contact Info) Description 09/01/2018 [facility] [place] [address] [address] Jocelyn Davidson, RENATA [address] [place] [address] Social History Tobacco Use Types Packs/Day Years Used Date Smoking Tobacco: Never Smokeless Tobacco: Never Alcohol Use Standard Drinks/Week Comments Yes 0 (1 standard drink = 0.6 oz pur e alcohol) rare Sex and Gender Information Value Date Recorded Sex Assigned at Female 03/04/2020 12:33 PM ACTUARIAL MATHEMATICIAN Gender Identity Female 03/04/2020 12:33 PM ACTUARIAL MATHEMATICIAN Sexual Orientation Straight 03/04/2020 12 :33 PM ACTUARIAL MATHEMATICIAN documented as of this encounter Plan of Treatment Not on file documented as of this encounter Visit Diagnoses Not on filedocumented in this encounter Additional Health Concerns Infection Onset Date Last Indicated Resolved Time Rule Out COVID-19 02/26/2020 02/26/2020 02/27/2020 4:32 PM ACTUARIAL MATHEMATICIAN documented as of this encounter Care Teams Hasher Operator Relationship Specialty [place] [address] [place] [address] PCP - General Family Practice 12/29/17 05/21/20 [place] [address] [facility] [place] [address] PCP - General Family Medicine 05/26/20 Annette Alvarez APRN BOTTLER HELPER [address] [place], [place] [id number] Nurse Practitioner Clinical Nurse Specialist 03/22/17 10/21/[address] [place] [address] Landing Support Specialist Dietitian, Registered 05/25/18 Tamar Murphy APRN BOTTLER HELPER [address] [place] [id number] Assigned PCP 02/08/20 11/15/20 [place] [address] [place] [address] Assigned PCP 11/16/20 Harlan Lin MD NO INFO AVAILABLE Assigned Endocrinology Provider 12/07/20 08/01/21 Mikki Blevins MD [address] [place] [address] Endocrinology, Diabetes, and Metabolism 05/07/21 [place] [address] Assigned Endocrinology Provider 08/02/21 01/28/23 Mindi Llanes PA-C [address] [place] [address] Assigned Surgical Provider 09/26/21 documented as of this encounter
--- OUTSIDE RECORDS SUMMARY | 2023-04-21 09:59 | XMS_ITS | Encounter Summary ---
Author Name Unknown Organization [facility] Address [address] [facility] [place] [address] Care Team Providers Care Farm Helper Name Role Phone Jocelyn Davidson RENATA Unavailable [phone] Nikita Gamble MD Primary Care Provider [phone] Naveen Casiano MD Unavailable [phone] Mikki Blevins MD Unavailable [phone] Mikki Blevins MD Unavailable [phone] Mindi Llanes PA-C Unavailable [phone] Encounter Details Date Type Department Care Team (Late st Contact Info) Description 08/05/2021 MyC Medical Advice [facility] [address] [phone] Mikki Blevins MD [facility] [place], [place] [id number] Social History Tobacco Use Types Packs/Day Years Used Date Smoking Tobacco: Never Smokeless Tobacco: Never Alcohol Use Standard Drinks/Week Comments Yes 0 (1 standard drink = 0.6 oz pur e alcohol) rare PHQ-2 Answer Date Recorded PHQ-2 Score 0 02/26/2020 Sex and Gender Information Value Date Recorded Sex Assigned at Female 03/04/2020 12:33 PM [employer] TE[employer] Gender Identity Female 03/04/2020 12:33 PM FI[employer] TECH[employer]Y IN[employer]CTOR Sexual Orientation Straight 03/04/2020 12 :33 PM FIRE TECH[employer]Y INSTRUCTOR documented as of this encounter Miscellaneous Notes * Telephone Encounter - Radha Fernandez RN - 08/06/2021 8:40 AM CDT documented in this encounter Plan of Treatment Not on file documented as of this encounter Visit Diagnoses Not on filedocumented in this encounter Additional Health Concerns Assessment Noted Time PHQ-9 Depression Total Score: 0 02/26/20 20 1:30 PM FI[employer] TECH[employer]Y IN[employer] documented as of this encounter Care Teams Farm Helper Relationship Specialty Start Date End Date Nikita Gamble MD [address] [place] [address] PCP - General Family Medicine 05/26/[address] [place] [address] Bed And Breakfast Innkeeper Dietitian, Registered 05/25/18 [place] [address] [place] [address] Assigned PCP 11/16/20 Mikki Blevins MD [address] [place] [address] Endocrinology, Diabetes, and Metabolism 05/07/21 [place] [address] Assigned Endocrinology Provider 08/02/21 01/28/23 Mindi Llanes PA-C [address] [facility] [address] [place] [address] Assigned Surgical Provider 09/26/21 documented as of this encounter
== END 2023-04-21 09:54 | disposition home or self-care (01) ==
PROVIDERS: PCP Family Medicine; Visit Provider Family Medicine
DX: I10 Essential (primary) hypertension (principal); E03.9 Hypothyroidism, unspecified; Z13.0 Encounter for screening for diseases of the blood and blood-forming organs and certain disorders involving the immune mechanism
CPT/HCPCS: 80048; 84439; 84443; 85025

== ENCOUNTER 2023-06-15 15:09 | Outpatient (CLI) | payer OTHER, SELFPAY | END 2023-06-15 15:10 | disposition home or self-care (01) | LOC: NFLDREF 06-17 06:34 | PROVIDERS: PCP Family Medicine; Referring Provider Family Medicine; Visit Provider Internal Medicine | DX: R35.0 Frequency of micturition (principal); N39.0 Urinary tract infection, site not specified | CPT/HCPCS: 87086; 87186 ==

== ENCOUNTER 2023-07-05 13:22 | Outpatient (CLI) | payer OTHER, SELFPAY ==
--- NOTE | 2023-07-05 13:00 | CT_ITS ---
Patient: AMAURY CARBAJAL Facility:?[facility] Patient ID:?[id number] Site Patient ID:?[id number]. Site :?[id number] Study:?CT-Extremity Right WRIST-07/05/2023 2:47:48 PM Ordering Physician:?DR. ACKERMAN Final Report: INDICATION: Pain after fall. COMPARISON: Plain film 22 June 2023. TECHNIQUE: Multidetector imaging of the right wrist with axial, coronal and sagittal formats. FINDINGS: Unremarkable appearing distal radioulnar joint and radiocarpal joint. No carpal fracture. Minimal osteoarthritis narrowing and subarticular sclerosis triscaphe joint and 1st carpometacarpal joint. Diffuse atherosclerotic calcifications. IMPRESSION: 1. No acute fracture. 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 2. Prominent diffuse atherosclerosis. Query diabetes. Please note that all CT scans at this facility use dose modulation, iterative reconstruction, and/or weight-based dosing when appropriate to reduce radiation dose to as low as reasonably achievable. Dictated by Onel Duff MD @ 07/06/2023 9:49:27 AM Signed by:?Onel Duff MD @07/06/2023 9:49:27 AM (Electronic Signature)
--- OUTSIDE RECORDS SUMMARY | 2023-07-05 13:25 | XMS_ITS | Clinical Summary ---
Author Name Unknown [facility] Address [address], [place] [address] Care Team Providers Care Buffing Wheel Inspector Name Role Phone Nikita Gamble MD Primary Care Provider Source Comments You are receiving this document as you are listed as the primary care provider,follow-up provider, or the patient has been referred to you for consultation.This is in compliance with the Medicare and[facility] Hospital[facility] EHR Incentive Program,which states Providers who transition their patient to another setting of careor provider of care or refers their patient to another provider of care shouldprovide summary care record for each transition of care or referral. Formerly [facility] Allergies Active Allergy Reactions Criticality Noted Date Comments Naproxen Gastrointestinal 05/15/2015 Medications Medication Sig Dispensed Refills Start Date End Date Status ondansetron (AKA ZOFRAN) 4 MG disintegrating tablet Take 1 Tablet (4 mg) by mouth every 8 hours as needed for Nausea. Active calcium carbonate-vitamin D 600-400 MG-UNIT tablet Take 1 Tablet by mouth daily. Active tolterodine (AKA DETROL) 2 MG tablet Take 1 Tab by mouth two times a day. 14 Tab 0 5 Active Blood Glucose Monitoring Suppl (MARTIN CONTOUR MONITOR) W/DEVICE KIT kit As instructed 1 Each 0 5 Active blood glucose (MARTIN CONTOUR TEST) strip 4 x daily. Pharmacy dispense brand based on insurance. 50 Each PRN 5 Active lancets (MARTIN MICROLET LANCETS) Use as directed. Pharmacy dispense brand based on insurance. 50 Each prn 5 Active oxyCODONE (AKA ROXICODONE) 5 MG immediate release tabletIndications: Acute Pain Take 1-2 Tabs by mouth every 4 hours as needed for Pain. Indications: Acute Pain 10 Tab 0 6 Active aspirin 81 MG chewable tabletIndications: Heart protection Take 1 Tab by mouth daily. Indications: Heart protection 100 Tab 3 6 Active citalopram (AKA CELEXA) 40 MG tabletIndications: Depression Take 1 Tab by mouth daily. Indications: Depression 14 Tab 0 6 Active lisinopril (AKA ZESTRIL) 10 MG tabletIndications: High blood pressure & Diabetes Take 1 Tab by mouth daily. Indications: High blood pressure & Diabetes 30 Tab 11 6 Active omeprazole (AKA PRILOSEC) 20 MG capsule Take 1 tablet by mouth two times a day before meals for 13 days Indications: H-pylori infect 26 Cap 0 6 Active insulin glargine (TOUJEO SOLOSTAR) 300 UNIT/ML injectionIndicatio ns:Type 1 Diabetes Mellitus Inject 51 Units subcutaneously every evening. Note increase in dose Indications: Insulin-Dependent Diabetes 15 mL 11 6 Active rizatriptan (MAXALT-LAB SCIENTIST) 10 MG disintegrating tablet Take by mouth. Active FIBER ADULT GUMMIES ORIndications:3 gummies po daily in morning Indications: 3 gummies po daily in morning Active oxybutynin (DITROPANXL) 10 MG 24 hour release tablet Take by mouth. Active amoxicillin (AMOXIL) 500 MG capsule Take 4 Capsules (2,000 mg) by mouth every 24 hours as needed. Active cyclobenzaprine (FLEXERIL) 10 MG tablet Take 1 Tablet (10 mg) by mouth every 8 hours. 3 Active estradiol (ESTRACE) 0.1 MG/GM vaginal cream Insert 0.5 g vaginally two times a week. 3 Active valACYclovir (VALTREX) 500 MG tablet Take 1 Tablet (500 mg) by mouth daily as needed. Active pregabalin (LYRICA) 300 MG capsule Take 1 Capsule (300 mg) by mouth two times a day. Active triamcinolone acetonide (KENALOG) 0.1 % paste apply topically to affected dental area three times a day; use after food and/or drink and/or oral hygiene* 3 Active furosemide (LASIX) 40 MG tablet Take 1 Tablet (40 mg) by mouth daily. Active GLUCAGON EMERGENCY 1 MG Kit SMARTSI Milligram(s) SUB-Q Once PRN 3 Active NOVOLOG 100 UNIT/ML injection (vial) Inject 125 Units subcutaneously daily. 3 Active methocarbamol (ROBAXIN) 500 MG tablet Take 1 Tablet (500 mg) by mouth three times a day as needed. Active metroNIDAZOLE (METROCREAM) 0.75 % cream Apply topically two times a day. 3 Active levothyroxine (SYNTHROID) 175 MCG tablet Take 1 tablet day for 4 days of the week. Take at least one hour before or two hours after meal. 48 Tablet 3 4 Active levothyroxine (SYNTHROID) 150 MCG tablet Take 1 tablet daily for 3 days of the week. Take at least one hour before or two hours after meal. 36 Tablet 3 4 Active topiramate (TOPAMAX) 100 MG tablet Take 1 Tablet (100 mg) by mouth daily. 4 Active SUMAtriptan (AKA IMITREX) 50 MG tablet . Take 1 tablet by mouth every 2 hours as needed for migraine headaches. 024 Discontinued Active Problems Problem Noted Date Diagnosed Date Bilateral leg edema 06/23/2023 Urge incontinence of urine 06/23/2023 Anemia 06/23/2023 Stage 3b chronic kidney disease 06/23/2023 Obesity (BMI 30-39.9) 06/23/2023 Knee osteoarthritis 01/10/2023 Overview: bilateral, has had injections. Hurts daily. Pain 7-11/04. Can't be seen at [facility], owes them money. They suggested 2 total [...] (methicillin resistant Staphylococcus aureu s) 12/30/2014 Overview: Justinelena 12-29-14 History of pulmonary embolism 06/07/2014 Generalized tonic-clonic seizure 02/03/2014 Overview: Due to hypoglycemia. Has had 2-3 seizures over the last 8-9 years. Depression with anxiety 05/31/2013 Overview: Med trials: Zoloft, wellbutrin, prozac, ambien. Klonopin until 11/2013 and was switched to hydroxyzine with fair benefit. Trazodone doesn't help. Type 1 diabetes mellitus wit h diabetic neuropathy, unspecified Hypertensive chronic kidney disease with stage 1 through stage 4 chronic kidney disease, or unspecified chronic kidney disease Major depressive disorder, recurrent, mild Type 1 diabetes mellitus without complications Encounters Date Type Department Care Team Description 06/30/2023 E-Visit [facility] [address] [address] Mychart, Generic Provider 06/29/2023 12:00 PM CDT Sleep Procedure [facility] [address] [address] JUSTO (obstructive sleep apnea) (Primary Dx) 06/23/2023 12:10 PM CDT Lab Visit [facility] [address] [place] [id number] Stage 3b chronic kidney disease (HRC); Anemia, unspecified type 06/23/2023 11:00 AM CDT Office Visit [facility] [address] [place] [address] Nancy Stock MD Stage 3b chronic kidney disease (HRC) (Primary Dx); Essential hypertension (HRC); Anemia, unspecified type; Urge incontinence of urine; Bilateral leg edema; Obesity (BMI 30-39.9) (HRC); H/O unilateral nephrectomy 05/27/2023 Telephone [place] [phone] [facility] [address] [place] [phone] Logan Parra PA-C Follow Up Medication 05/26/2023 1:20 PM SOCIAL MEDIA PROJECT MANAGER Lab Visit [facility] [address] [place] [id number] Type 1 diabetes mellitus with hypoglycemia and without coma (HRC); Hypothyroidism, unspecified type (HRC) 05/26/2023 11:15 AM SOCIAL MEDIA PROJECT MANAGER Office Visit [place] [phone] [facility] [address] [place] [address] Logan Parra PA-C Type 1 diabetes mellitus with hypoglycemia and without coma (HRC) (Primary Dx); Benign essential hypertension (HRC); Hypothyroidism, unspecified type (HRC); Stage 3 chronic kidney disease, unspecified whether stage 3a or 3b CKD (HRC); Congenital kidney disease; Diabetic peripheral neuropathy associated with type 1 diabetes mellitus (HRC); History of snoring; BMI 35.0-35.9,adult; Superficial burn; Brittle nails; Hair loss 05/26/2023 Notes/Orders [place] [address] [address] Logan Parra PA-C Obstructive sleep apnea (adult) (pediatric) (Primary Dx) 04/19/2023 2:15 PM SOCIAL MEDIA PROJECT MANAGER Telemedicine [facility] Diabetes Education [place] [address] [place] [address] Radha Pope RDN, LD, CDCES Type 1 diabetes mellitus with diabetic neuropathy, unspecified (HRC) (Primary Dx) from Last 3 Months Immunizations Name Administration Dates Next Due Influenza IIV4 (Quadrivalent) 0.5mL ([id number]) /0 07/2014 Family History Medical History Relation Name [...] Sign Reading Time Taken Comments Blood Pressure 161/51 06/23/2023 11:01 AM CDT Pulse 68 06/23/2023 11:01 AM CDT Temperature 37 ??C (98.6 ??F) 12/22/2022 10:12 PM CDT Respiratory Rate 16 12/22/2022 10:12 PM CDT Oxygen Saturation 100% 12/22/2022 10:52 PM CDT Inhaled Oxygen Concentration - - Weight 118.8 kg (262 lb) 06/28/2023 7:29 AM CDT Height 180.3 cm (5' 11) 06/28/2023 7:29 AM CDT Body Mass Index 36.54 06/28/2023 7:29 AM CDT Plan of Treatment Upcoming Encounters Date Type Department Care Team (Late st Contact Info) Description 07/20/2023 9:30 AM CDT [facility]oint[facility] [address] [place] [address] Kary Adhikari MD [address] [place] [phone] 07/28/2023 2:15 PM CDT Appointment [facility] [address] [place] [phone] Logan Parra PA-C [address] [place] [phone] 08/09/2023 10:30 AM CDT Telemedicine [facility] Nephrology [address] [place] [address] Nancy Stock MD [address] [place] [phone] 09/09/2023 9:00 AM CDT [facility]ointment [facility] [address] [facility] [address] [place] [address] Annelise Hayes MD [address] [place] [address] Health Maintenance Due Date Last Done Comments Cervical Cancer Screening Due 1965 Colon Cancer Screening Plan Due 1965 Diabetes: Eye Exam 1965 Diabetes: Foot Exam 1965 Diabetes: Lipid Panel 1965 Hep C Screening (Preventive Services) 1965 Mammogram 1965 Pneumococcal (1 - PCV) 1971 HIV Screening (Preventive Services) 1981 Adult Preventive Visit 1983 HepB (1) 02/29/1984 COVID-19 Vaccine ( season) 2022 06/12/2020, 05/22/2020 Diabetes: HGBA1C 08/24/2023 05/26/2023, , 01/26/2022, Additional history exists Diabetes: Creatinine 06/22/2024 06/23/2023, 02/18/2023, 12/22/2022, Additional history exists Diabetes: Urine Microalbumin 06/22/2024 06/23/2023, 02/07/2023 DTaP/Tdap/Td (5 - Tdap) 01/11/2026 01/12/20, 01/12/2016, [...] Date/Time Associated Diagnosis Comments ALBUMIN/CREAT RATIO Routine 06/23/2023 1 2:28 PM CDT Stage 3b chronic kidney disease (HRC) TP/CREA RATIO, URINE Routine 06/23/2023 12:28 PM CDT Stage 3b chronic kidney disease (HRC) UA WITH MICROSCOPIC Routine 06/23/2023 1 2:28 PM CDT Stage 3b chronic kidney disease (HRC) FOLATE ONLY (4HR FAST RECOMMENDED) Routine 06/23/2023 12:12 PM CDT Anemia, unspecified type VITAMIN B12 ONLY Routine 06/23/2023 12:1 2 PM CDT Anemia, unspecified type IRON PROFILE (IRON,TIBC,%SAT.(ROMEO C)) Routine 06/23/2023 12:12 PM CDT Anemia, unspecified type COMPLETE BLOOD COUNT-NO DIFF Routine 06/23/2023 12:12 PM CDT Anemia, unspecified type FERRITIN Routine 06/23/2023 12:12 PM CDT Anemia, unspecified type INTACT PTH Routine 06/23/2023 12:12 PM CDT Stage 3b chronic kidney disease (HRC) VITAMIN D 25-HYDROXY, TOTAL Routine 06/23/2023 12:12 PM CDT Stage 3b chronic kidney disease (HRC) RENAL FUNCTION PANEL Routine 06/23/2023 12:12 PM CDT Stage 3b chronic kidney disease (HRC) FREE T4 Routine 05/26/2023 12:25 PM SOCIAL MEDIA PROJECT MANAGER Hypothyroidism, unspecified type (HRC) TSH, SENSITIVE Routine 05/26/2023 12:25 PM SOCIAL MEDIA PROJECT MANAGER Hypothyroidism, unspecified type (HRC) HGB A1C Routine 05/26/2023 12:25 PM SOCIAL MEDIA PROJECT MANAGER Type 1 diabetes mellitus with hypoglycemia and without coma (HRC) from Last 3 Months Results * (ABNORMAL) UA with Microscopic: Clean Catch (06/23/2023 12:28 PM CDT) Urine Color Yellow 06/23/2023 12:33 PM CDT [facility] Urine Clarity Clear Clear 06/23/2023 12:33 PM CDT [facility] Specific [place], Urine 1.010 1.005 - 1.030 06/23/2023 12:33 PM CDT [facility] PH Urine 6.5 5.0 - 8.0 06/23/2023 12:33 PM CDT [facility] Protein, Urine Qual (mg/dL) Negative Neg/Trace 06/23/2023 12:33 PM CDT [facility] Glucose Urine Qual (mg/dL) 250(A) Negative 06/23/2023 12:33 PM CDT [facility] Ketones, Urine (mg/dL) Negative Negative 06/23/2023 12:33 PM CDT [facility] Urobilinogen, Urine (EU/dL) 0.2 <2.0 06/23/2023 12:33 PM CDT [facility] Bilirubin Urine Negative Negative 06/23/2023 12:33 PM CDT [facility] Blood, Urine Negative Neg/Trace 06/23/2023 12:33 PM CDT [facility] Nitrite Urine Negative Negative 06/23/2023 12:33 PM CDT [facility] Leukocyte Est. Negative Negative 06/23/2023 12:33 PM CDT [facility] Red Blood Cells 0-3 0 - 3 /HPF 06/23/2023 12:33 PM CDT [facility] White Blood Cells 0-5 0 - 5 /HPF 06/23/2023 12:33 PM CDT [facility] Bacteria Occasional(A) None Seen /HPF 06/23/2023 12:33 PM CDT [facility] Squamous Epithelial Cells Occasional None Seen, Occasional, Few /HPF 06/23/2023 12:33 PM CDT [facility] Urine Source Clean Catch 06/23/2023 12:33 PM CDT [facility] Urine URINE SPECIMEN COLLECTION, CLEAN CATCH / Unknown Non-blood Collection / Unknown 06/23/2023 12:28 PM CDT 06/23/2023 12:28 PM CDT Nancy Stock MD LAB_1 Performing Organization Address [facility]/ZIP Co de Phone Number [facility] [address] [place] [address], [facility] * (ABNORMAL) Albumin/Creatinine Ratio,Random Urine (06/23/2023 12:28 PM CDT) Albumin/Creati nine Ratio, Urine, Random 75(H) <30 mg/g 06/23/2023 7:38 PM CDT [facility] Albumin, Urine, Random 44.2 mg/L 06/23/2023 7:38 PM CDT [facility] Creatinine, Urine, Random 59 >20 mg/dL mg/dL 06/23/2023 7:38 PM CDT [facility] Urine Non-blood Collection / Unknown 06/23/2023 12:28 PM CDT 06/23/2023 12:28 PM CDT Nancy Stock MD LAB_1 Performing Organization Address [facility]/ZIP Co de Phone Number [facility] [address] [id number] * TP/Crea Ratio, Urine (06/23/2023 12:28 PM CDT) TP/Creat Ratio, Urine Random 0.19 0.00 - 0.20 06/23/2023 7:38 PM CDT [facility] Total Protein, Urine, Random 11 0 - 14 mg/dL 06/23/2023 7:38 PM CDT [facility] Creatinine, Urine, Random 59 >20 mg/dL mg/dL 06/23/2023 7:38 PM CDT [facility] Urine Non-blood Collection / Unknown 06/23/2023 12:28 PM CDT 06/23/2023 12:28 PM CDT [facility] - 06/23/2023 7:38 PM CDT Low urine creatinine values coupled with low urine protein values can artifactually increase the urine protein/creatinine results. Correlate results of ratio with creatinine results. Nancy Stock MD LAB_1 Performing Organization Address [facility] Co de Phone Number [facility] [address] * (ABNORMAL) Vitamin D 25-Hydroxy, Total (06/23/2023 12:12 PM CDT) Vitamin D, 25-OH, Total 24(L) 30 - 80 ng/mL 06/23/2023 9:03 PM CDT [facility] Blood Venipuncture / Unknown 06/23/2023 12:12 PM CDT 06/23/2023 12:17 PM CDT [facility] - 06/23/2023 9:03 PM CDT Expected values Deficiency: <20 ng/mL Insufficiency: 20-29 ng/mL Optimum: 30-80 ng/mL Possible toxicity: >80 ng/mL Nancy Stock MD LAB_1 Performing Organization Address [facility]/ZIP Co de Phone Number [facility] [address] * (ABNORMAL) Renal Function Panel (06/23/2023 12:12 PM CDT) Sodium 138 136 - 145 mmol/L 06/23/2023 6:45 PM CDT [facility] Potassium 5.1 3.5 - 5.1 mmol/L 06/23/2023 6:45 PM CDT [facility] Chloride 106 98 - 109 mmol/L 06/23/2023 6:45 PM CDT [facility] CO2 24 20 - 29 mmol/L 06/23/2023 6:45 PM CDT [facility] Anion Gap 8 7 - 16 mmol/L 06/23/2023 6:45 PM CDT [facility] Calcium 9.6 8.4 - 10.4 mg/dL 06/23/2023 6:45 PM CDT [facility] BUN 26 7 - 26 mg/dL 06/23/2023 6:45 PM CDT [facility] Creatinine 1.70(H) 0.55 - 1.02 mg/dL 06/23/2023 6:45 PM CDT [facility] Albumin 3.8 3.5 - 5.0 g/dL 06/23/2023 6:45 PM CDT [facility] Phosphorus 3.0 2.3 - 4.7 mg/dL 06/23/2023 6:45 PM CDT [facility] Glucose 150(H) 70 - 100 mg/dL 06/23/2023 6:45 PM CDT [facility] Comment:The given reference range is for the fasting state. Non-fasting reference range for glucose is 70 - 180 mg/dL. GFR, Estimated 35(L) >60 mL/min/1. 73m2 06/23/2023 6:45 PM CDT [facility] Hours Fasting 0.1 8 - 12 Hours 06/23/2023 6:45 PM CDT [facility] Blood Venipuncture / Unknown 06/23/2023 12:12 PM CDT 06/23/2023 12:17 PM CDT Nancy Stock MD LAB_1 [facility] [address] * Intact PTH (06/23/2023 12:12 PM CDT) Intact PTH 90 10 - 100 pg/mL 06/23/2023 5:[address] [facility] Blood Venipuncture / Unknown 06/23/2023 12:12 PM CDT 06/23/2023 12:17 PM CDT Nancy Stock MD LAB_[address] [address], [facility] * (ABNORMAL) Complete Blood Count-No Diff (06/23/2023 12:12 PM CDT) WBC 6.9 3.5 - 10.5 x10(9)/L 06/23/2023 12:26 PM CDT [facility] RBC 3.49(L) 3.90 - 5.03 x10(12)/L 06/23/2023 12:26 PM CDT [facility] Hemoglobin 10.4(L) 12.0 - 15.5 g/dL 06/23/2023 12:26 PM CDT [facility] HCT 31.6(L) 34.9 - 44.5 % 06/23/2023 12:26 PM CDT [facility] MCV 90.5 80.0 - 100.0 fL 06/23/2023 12:26 PM CDT [facility] MCH 29.8 27.6 - 33.3 pg 06/23/2023 12:26 PM CDT [facility] MCHC 32.9 31.5 - 35.2 g/dL 06/23/2023 12:26 PM CDT [facility] RDW 12.2 11.9 - 15.5 % 06/23/2023 12:26 PM CDT [facility] Platelets 270 150 - 450 x10(9)/L 06/23/2023 12:26 PM CDT [facility] Blood Venipuncture / Unknown 06/23/2023 12:12 PM CDT 06/23/2023 12:17 PM CDT Nancy Stock MD LAB_1 [facility] [address] [place] [address], [facility] * Ferritin (06/23/2023 12:12 PM CDT) Ferritin 64 9 - 204 ng/mL 06/23/2023 7:04 PM CDT [facility] Blood Venipuncture / Unknown 06/23/2023 12:12 PM CDT 06/23/2023 12:17 PM CDT Nancy Stock MD LAB_1 Performing Organization Address [facility] Co de Phone Number [facility] [address] * Folate Only (4Hr Fast Recommended) (06/23/2023 12:12 PM CDT) Folate 17.6 >=7.0 ng/mL 06/24/2023 12:54 PM CDT [facility] Blood Venipuncture / Unknown 06/23/2023 12:12 PM CDT 06/23/2023 12:17 PM CDT Nancy Stock MD LAB_1 Performing Organization Address [facility] de Phone Number [facility] [address] * (ABNORMAL) Vitamin B12 Only (06/23/2023 12:12 PM CDT) Vitamin B12 1,293(H) 213 - 816 pg/mL 06/23/2023 9:02 PM CDT [facility] Blood Venipuncture / Unknown 06/23/2023 12:12 PM CDT 06/23/2023 12:17 PM CDT Nancy Stock MD LAB_1 Performing Organization Address [facility] de Phone Number [facility] [address] * Iron Profile (Iron,TIBC,%Sat.(Calc)) (06/23/2023 12:12 PM CDT) Iron 51 50 - 170 mcg/dL 06/23/2023 6:45 PM CDT [facility] Transferrin 227 180 - 382 mg/dL 06/23/2023 6:45 PM CDT [facility] TIBC, Calculated 284 240 - 450 mcg/dL 06/23/2023 6:45 PM CDT [facility] % Saturation, Calculated 18 10 - 50 % 06/23/2023 6:45 PM CDT [facility] Blood Venipuncture / Unknown 06/23/2023 12:12 PM CDT 06/23/2023 12:17 PM CDT Nancy tSock MD LAB_1 Performing Organization Address [facility] Co de Phone Number [facility] [address] * (ABNORMAL) TSH (05/26/2023 12:25 PM SOCIAL MEDIA PROJECT MANAGER) TSH, Sensitive 0.05(L) 0.30 - 4.50 uIU/mL 05/26/2023 4:00 PM SOCIAL MEDIA PROJECT MANAGER [facility] Blood Venipuncture / Unknown 05/26/2023 12:25 PM SOCIAL MEDIA PROJECT MANAGER 05/26/2023 12:25 PM SOCIAL MEDIA PROJECT MANAGER Logan Parra PA-C LAB_1 Performing Organization Address [facility] Co de Phone Number [facility] [address] * Free T4 (05/26/2023 12:25 PM SOCIAL MEDIA PROJECT MANAGER) T4, Free 1.2 0.7 - 1.5 ng/dL 05/26/2023 4:00 PM SOCIAL MEDIA PROJECT MANAGER [facility] Blood Venipuncture / Unknown 05/26/2023 12:25 PM SOCIAL MEDIA PROJECT MANAGER 05/26/2023 12:25 PM SOCIAL MEDIA PROJECT MANAGER Logan Parra PA-C LAB_1 Performing Organization Address [facility] Co de Phone Number [facility] [address] * (ABNORMAL) Hgb A1C (05/26/2023 12:25 PM SOCIAL MEDIA PROJECT MANAGER) Hemoglobin A1C 7.4(H) <=5.6 % 05/26/2023 4:50 PM SOCIAL MEDIA PROJECT MANAGER [facility] Estimated Average Glucose (Calc) 166 < 117 mg/dL 05/26/2023 4:50 PM [facility] Comment:Estimated average gl ucose (eAG) converts A1c into glucose units (mg/dL) and estimates average glucose over the past approximately 3 months. The eAG reference interval (<117 mg/dL) corresponds to an A1c of <5.7%. Blood Venipuncture / Unknown 05/26/2023 12:25 PM SOCIAL MEDIA PROJECT MANAGER 05/26/2023 12:25 PM SOCIAL MEDIA PROJECT MANAGER Narrative [facility] - 05/26/2023 4:50 PM SOCIAL MEDIA PROJECT MANAGER For patients not previously diagnosed with diabetes: 5.7-6.4%: Increased risk for diabetes 6.5% and greater: Diagnostic for diabetes For patients diagnosed with diabetes: <8.0%: Goal of therapy for ages 18-75 Clinicians may recommend a higher or lower goal for specific individuals. Logan Parra PA-C LAB_1 [facility] [address] [place] [address], [facility] from Last 3 Months Additional Health Concerns Infection Onset Date Last Indicated MRSA Comment:Beronica 10-4-15, 01/06/16 12/30/2014 12/30/2014 Advance Directives * Full Code (Latest Code Status on File) Date Activated Date Inactivated Comments 04/28/2015 1:31 AM 04/30/2015 6:39 PM * Full Code Date Activated Date Inactivated Comments 12/29/2014 11:37 AM 12/30/2014 6:20 PM Care Teams Buffing Wheel Inspector Relationship Specialty Start Date End Date Nikita Gamble MD [address] [place] [address] PCP - General Family Practice 06/23/23
--- OUTSIDE RECORDS SUMMARY | 2023-07-05 13:25 | XMS_ITS | Encounter Summary ---
Author Name Unknown Organization [facility] Address [address] [place] [address] Care Team Providers Care Collection Systems Consultant Name Role Phone Nikita Gamble MD Primary Care Provider [phone] Reason for Visit * Procedure/Equipment (Routine) - Closed Specialty Diagnoses / Procedures Referred By Contac t Referred To Contact Diagnoses Obstructive sleep apnea (adult) (pediatric) Logan Parra PA-C [address] [place] [address] Referral ID Status Reason Start Date Expiration Date Visits Re quested Visits Authorized [id number] Closed 05/26/2023 08/24/2024 1 1 Encounter Details Date Type Department Care Team (Latest Contact Info) Description 06/29/2023 12:00 PM CDT Sleep Procedure [facility] [address] [place] [phone] JUSTO (obstructive sleep apnea) (Primary Dx) Social History Tobacco Use Types [...] - Inhaled Oxygen Concentration - - Weight 118.8 kg (262 lb) 06/28/2023 7:29 AM CDT Height 180.3 cm (5' 11) 06/28/2023 7:29 AM CDT Body Mass Index 36.54 06/28/2023 7:29 AM CDT documented in this encounter Progress Notes * Krysta Mathew - 06/29/2023 12:00 PM CDT [id number] demonstration or video instructions of the recorder's application and use were provided to the patient. A 24-hour support line was available to the patient during testing. * Markus Garcia MD - 06/29/2023 12:00 PM CDT Home Sleep Test (HST) Interpretation Date of Interpretation: 07/04/2023 BMI: Estimated body mass index is 36.54 kg/m?? as calculated from the following: Height as of this encounter: 5' 11 (1.803 m). Weight as of this encounter: 262 lb (118.8 kg). Marblemount Score: Neck Circumference: Device Name/Type: Carefusion NOX-T3 (Type III) Hypopnea Definition: AASM Rule: 1A Technical Quality: 99 % This home sleep test was performed as a/an Diagnostic study (unknown) a sleep partner in bed. The total recording time was 439.4 minutes. Snoring was reported as none Respiratory Events: Obstructive Apneas: 7 Central Apneas: 2 Mixed Apneas: 0 Hypopneas: 24 Overall RDI: 4.5 Non-Supine RDI: Supine RDI: 3.1 Oxygen Desaturations: Lowest O2 saturation was 87 % Total Sleep Time SpO2 was </= 88% was 1.6 minutes. Positional Data: % Time Supine: 40.2 % % Time Non-Supine: 59.8 % EKG: No significant cardiac arrhythmias were noted Impression: This study is not diagnostic of sleep apnea. Recommendations: Home sleep tests have a low sensitivity for the diagnosis of mild degrees of sleep apnea. If there remains a high clinical suspicion for a sleep disorder, consider repeat in-center/attended PSG to further evaluate. Would suggest optimizing sleep hygiene measures, especially avoiding alcohol and sedatives. Avoiding sleep deprivation would also be beneficial. The patient should avoid dangers of driving while excessively drowsy. Weight management if indicated. I attest that I have conducted an epoch by epoch review of all of the raw data for this sleep study. Markus Garcia MD documented in this encounter Plan of Treatment Upcoming Encounters Date Type Department Care Team (Late st Contact Info) Description 07/20/2023 9:30 AM CDT [facility]ointment [facility] [address] [place] [address] Kary Adhikari MD [address] [place] [address] 07/28/2023 2:15 PM CDT Appointment [facility] [address] [facility] [place] [address] Logan Parra PA-C [address] [place] [address] 08/09/2023 10:30 AM CDT Telemedicine [facility] Nephrology [address] [place] [address] Nancy Stock MD [address] [place] [address] 09/09/2023 9:00 AM CDT Appointment Specialty Center 435 UroGynecology [address] [place] [address] Annelise Hayes MD [address] [place], [place] [phone] Scheduled Referrals Name Type Priority Associated Diagnoses Orde r Schedule Sleep Study (Home)-Portable Setup Referral Routine Obstructive sleep apnea (adult) (pediatric) Ordered: 05/26/2023 documented as of this encounter Visit Diagnoses Diagnosis JUSTO (obstructive sleep apnea)- Primary Obstructive sleep apnea (adult) (pediatric) documented in this encounter Additional Health Concerns Infection Onset Date Last Indicated Resolved Time MRSA Comment:Beronica 12-29-14, 01/06/16 12/30/2014 12/30/2014 documented as of this encounter Care Teams Collection Systems Consultant Relationship Specialty Start Date End Date Nikita Gamble MD [address] [place] [address] PCP - General Family Practice 06/23/23 documented as of this encounter
--- OUTSIDE RECORDS SUMMARY | 2023-07-05 13:25 | XMS_ITS | Encounter Summary ---
Author Name Unknown Organization [facility] Address [address], [place] [address] Care Team Providers Care Line Builder Name Role Phone Nikita Gamble MD Primary Care Provider Encounter Details Date Type Department Care Team (Late st Contact Info) Description 06/30/2023 E-Visit [address] [address] rTish, [place] [address] Social History Tobacco Use Types Packs/Day Years [...] 07/20/2023 9:30 AM CDT Appointment Specialty Center [facility] Dermatology Clinic [address] [place] [address]. [place] [address] Kary Adhikari MD [address] [place] [address] 07/28/2023 2:15 PM CDT Appointment [facility]ty [facility] [address] [facility] [place] [address] Logan Parra PA-C [address] [place] [address] 08/09/2023 10:30 AM CDT Telemedicine [facility] Nephrology [address] [place], [place] [phone] Nancy Stock MD [address] [place], [place] [phone] 09/09/2023 9:00 AM CDT Appointment [facility] 435 UroGynecology 435 [facility] [place], [place] [phone] Annelise Hayes MD [address] [place], [place] [phone] documented as of this encounter Visit Diagnoses Not on filedocumented in this encounter Additional Health Concerns Infection Onset Date Last Indicated Resolved Time MRSA Comment:Beronica 12-29-14, 01/06/16 12/30/2014 12/30/2014 documented as of this encounter Care Teams Line Builder Relationship Specialty Start Date End Date Nikita Gamble MD [address] [place] [address] PCP - General Family Practice 06/23/23 documented as of this encounter
--- OUTSIDE RECORDS SUMMARY | 2023-07-05 13:26 | XMS_ITS | Encounter Summary ---
Author Name Unknown Organization [facility] Address [address], [place] [address] Care Team Providers Care Truck Car And Bus Cleaner Name Role Phone Nikita Gamble MD Primary Care Provider [phone] Encounter Details Date Type Department Care Team (Late st Contact Info) Description 06/23/2023 12:10 PM CDT Lab Visit [facility] [address] [place] [address] Stage 3b chronic kidney disease (HRC); Anemia, unspecified type Social History Tobacco Use Types Packs/Day Years [...] AM CDT documented as of this encounter Progress Notes * Nancy Stock MD - 06/23/2023 12:10 PM CDT Ms Jadiel, Blood test for kidney function is stable compared to 2022, though slightly worse earlier readings, as we discussed in the office. Urine testing does show some moderate spillage of protein (albuminuria), and you already on lisinopril. Would keep your current dose. Vitamin-D level was slightly low, please start vitamin D3 1000 units (25 mcg) daily; it is available [id number]. Anemia is again noted, with normal B12 and folate levels. We will continue to monitor. Warm Nancy galvez MD 06/28/2023, 3:36 PM documented in this encounter Plan of Treatment Upcoming Encounters Date Type Department Care Team (Late st Contact Info) Description 07/20/2023 9:30 AM CDT Appointment Specialty [facility] [address] [place] [address] Kary Adhikari MD [address] [place] [address] 07/28/2023 2:15 PM CDT Appointment Specialty Center [address] [place] [address] Logan Parra PA-C [address] [place] [address] 08/09/2023 10:30 AM CDT Telemedicine [facility] Nephrology [address] [place] [address] Nancy Stock MD [address] [place] [address] 09/09/2023 9:00 AM CDT Appointment Specialty [place] 435 UroGynecology [address] [place] [address] Annelise Hayes MD [address] [place], [place] [phone] documented as of this encounter Procedures Procedure Name Priority Date/Time Associated Diagnosis Comments UA WITH MICROSCOPIC Routine 06/23/2023 1 2:28 PM CDT Stage 3b chronic kidney disease (HRC) ALBUMIN/CREAT RATIO Routine 06/23/2023 1 2:28 PM CDT Stage 3b chronic kidney disease (HRC) TP/CREA RATIO, URINE Routine 06/23/2023 12:28 PM CDT Stage 3b chronic kidney disease (HRC) VITAMIN D 25-HYDROXY, TOTAL Routine 06/23/2023 12:12 PM CDT Stage 3b chronic kidney disease (HRC) RENAL FUNCTION PANEL Routine 06/23/2023 12:12 PM CDT Stage 3b chronic kidney disease (HRC) INTACT PTH Routine 06/23/2023 12:12 PM CDT Stage 3b chronic kidney disease (HRC) COMPLETE BLOOD COUNT-NO DIFF Routine 06/23/2023 12:12 PM CDT Anemia, unspecified type FERRITIN Routine 06/23/2023 12:12 PM CDT Anemia, unspecified type FOLATE ONLY (4HR FAST RECOMMENDED) Routine 06/23/2023 12:12 PM CDT Anemia, unspecified type VITAMIN B12 ONLY Routine 06/23/2023 12:1 2 PM CDT Anemia, unspecified type IRON PROFILE (IRON,TIBC,%SAT.(ROMEO C)) Routine 06/23/2023 12:12 PM CDT Anemia, unspecified type documented in this encounter Results * (ABNORMAL) Albumin/Creatinine Ratio,Random Urine (06/23/2023 12:28 PM CDT) Albumin/Creati nine Ratio, Urine, Random 75(H) <30 mg/g 06/23/2023 7:38 PM CDT [facility] Albumin, Urine, Random 44.2 mg/L 06/23/2023 7:38 PM CDT [facility] Creatinine, Urine, Random 59 >20 mg/dL mg/dL 06/23/2023 7:38 PM T [facility] Urine Non-blood Collection / Unknown 06/23/2023 12:28 PM CDT 06/23/2023 12:28 PM CDT Nancy Stock MD LAB_1 Performing Organization Address [facility] Co de Phone Number [facility] [address] * TP/Crea Ratio, Urine (06/23/2023 12:28 PM CDT) TP/Creat Ratio, Urine Random 0.19 0.00 - 0.20 06/23/2023 7:38 PM CDT [facility] Total Protein, Urine, Random 11 0 - 14 mg/dL 06/23/2023 7:38 PM CDT [facility] Creatinine, Urine, Random 59 >20 mg/dL mg/dL 06/23/2023 7:38 PM CDT [facility] Urine Non-blood Collection / Unknown 06/23/2023 12:28 PM CDT 06/23/2023 12:28 PM CDT Narrative [facility] - 06/23/2023 7:38 PM CDT Low urine creatinine values coupled with low urine protein values can artifactually increase the urine protein/creatinine results. Correlate results of ratio with creatinine results. Nancy Stock MD LAB_1 Performing Organization Address [facility] de Phone Number [facility] [address] * (ABNORMAL) UA with Microscopic: Clean Catch (06/23/2023 12:28 PM CDT) Urine Color Yellow 06/23/2023 12:33 PM CDT [facility] Urine Clarity Clear Clear 06/23/2023 12:33 PM CDT [facility] Specific [place], Urine 1.010 1.005 - 1.030 06/23/2023 12:33 PM CDT [facility] PH Urine 6.5 5.0 - 8.0 06/23/2023 12:33 PM CDT [facility] Protein, Urine Qual (mg/dL) Negative Neg/Trace 06/23/2023 12:33 PM CDT [facility] Glucose Urine Qual (mg/dL) 250(A) Negative 06/23/2023 12:33 PM CDT [facility] Ketones, Urine (mg/dL) Negative Negative 06/23/2023 12:33 PM CDT [facility] Urobilinogen, Urine (EU/dL) 0.2 <2.0 06/23/2023 12:33 PM CDT [facility] Bilirubin Urine Negative Negative 06/23/2023 12:33 PM CDT [facility] Blood, Urine Negative Neg/Trace 06/23/2023 12:33 PM CDT [facility] Nitrite Urine Negative Negative 06/23/2023 12:33 PM CDT [facility] Leukocyte Est. Negative Negative 06/23/2023 12:33 PM CDT [facility] Red Blood Cells 0-3 0 - 3 /HPF 06/23/2023 12:33 PM CDT [facility] White Blood Cells 0-5 0 - 5 /HPF 06/23/2023 12:33 PM CDT [facility] Bacteria Occasional(A) None Seen /HPF 06/23/2023 12:33 PM CDT [facility] Squamous Epithelial Cells Occasional None Seen, Occasional, Few /HPF 06/23/2023 12:33 PM CDT [facility] Urine Source Clean Catch 06/23/2023 12:33 PM CDT [facility] Urine URINE SPECIMEN COLLECTION, CLEAN CATCH / Unknown Non-blood Collection / Unknown 06/23/2023 12:28 PM CDT 06/23/2023 12:28 PM CDT Nancy Stock MD LAB_1 [facility] [address] [place] [address], [facility] * Folate Only (4Hr Fast Recommended) (06/23/2023 12:12 PM CDT) Folate 17.6 >=7.0 ng/mL 06/24/2023 12:54 PM CDT [facility] Blood Venipuncture / Unknown 06/23/2023 12:12 PM CDT 06/23/2023 12:17 PM CDT Nancy Stock MD LAB_1 Performing Organization Address [facility] Co de Phone Number [facility] [address] * (ABNORMAL) Vitamin B12 Only (06/23/2023 12:12 PM CDT) Vitamin B12 1,293(H) 213 - 816 pg/mL 06/23/2023 9:02 PM CDT [facility] Blood Venipuncture / Unknown 06/23/2023 12:12 PM CDT 06/23/2023 12:17 PM CDT Nancy Stock MD LAB_1 Performing Organization Address [facility] de Phone Number [facility] [address] * Iron Profile (Iron,TIBC,%Sat.(Calc)) (06/23/2023 12:12 PM CDT) Iron 51 50 - 170 mcg/dL 06/23/2023 6:45 PM CDT [facility] Transferrin 227 180 - 382 mg/dL 06/23/2023 6:45 PM CDT [facility] TIBC, Calculated 284 240 - 450 mcg/dL 06/23/2023 6:45 PM CDT [facility] % Saturation, Calculated 18 10 - 50 % 06/23/2023 6:45 PM CDT [facility] Blood Venipuncture / Unknown 06/23/2023 12:12 PM CDT 06/23/2023 12:17 PM CDT Nancy Stock MD LAB_1 Performing Organization Address [facility] Co de Phone Number [facility] [address] * (ABNORMAL) Complete Blood Count-No Diff (06/23/2023 12:12 PM CDT) WBC 6.9 3.5 - 10.5 x10(9)/L 06/23/2023 12:26 PM CDT [facility] RBC 3.49(L) 3.90 - 5.03 x10(12)/L 06/23/2023 12:26 PM CDT [facility] Hemoglobin 10.4(L) 12.0 - 15.5 g/dL 06/23/2023 12:26 PM CDT [facility] HCT 31.6(L) 34.9 - 44.5 % 06/23/2023 12:26 PM CDT [facility] MCV 90.5 80.0 - 100.0 fL 06/23/2023 12:26 PM CDT [facility] MCH 29.8 27.6 - 33.3 pg 06/23/2023 12:26 PM CDT [facility] MCHC 32.9 31.5 - 35.2 g/dL 06/23/2023 12:26 PM CDT [facility] RDW 12.2 11.9 - 15.5 % 06/23/2023 12:26 PM CDT [facility] Platelets 270 150 - 450 x10(9)/L 06/23/2023 12:26 PM CDT [facility] Blood Venipuncture / Unknown 06/23/2023 12:12 PM CDT 06/23/2023 12:17 PM CDT Nancy Stock MD LAB_1 [facility] [address] [place] [address], [facility] * Ferritin (06/23/2023 12:12 PM CDT) Pathologist [facility] Ferritin 64 9 - 204 ng/mL 06/23/2023 7:04 PM CDT [facility] Blood Venipuncture / Unknown 06/23/2023 12:12 PM CDT 06/23/2023 12:17 PM CDT Nancy Stock MD LAB_1 Performing Organization Address City/[facility]/ZIP Co de Phone Number [facility] [address] * Intact PTH (06/23/2023 12:12 PM CDT) Intact PTH 90 10 - 100 pg/mL 06/23/2023 5:06 PM CDT [facility] Blood Venipuncture / Unknown 06/23/2023 12:12 PM CDT 06/23/2023 12:17 PM CDT Nancy Stock MD LAB_1 Performing Organization Address [facility] Co de Phone Number [address] * (ABNORMAL) Vitamin D 25-Hydroxy, Total (06/23/2023 12:12 PM CDT) Vitamin D, 25-OH, Total 24(L) 30 - 80 ng/mL 06/23/2023 9:03 PM CDT [facility] Blood Venipuncture / Unknown 06/23/2023 12:12 PM CDT 06/23/2023 12:17 PM CDT Narrative [facility] - 06/23/2023 9:03 PM CDT Expected values Deficiency: <20 ng/mL Insufficiency: 20-29 ng/mL Optimum: 30-80 ng/mL Possible toxicity: >80 ng/mL Nancy Stock MD LAB_1 Performing Organization Address City[facility]/ZIP Co de Phone Number [facility] [address] * (ABNORMAL) Renal Function Panel (06/23/2023 12:12 PM CDT) Sodium 138 136 - 145 mmol/L 06/23/2023 6:45 PM CDT [facility] Potassium 5.1 3.5 - 5.1 mmol/L 06/23/2023 6:45 PM T [facility] Chloride 106 98 - 109 mmol/L 06/23/2023 6:45 PM T [facility] CO2 24 20 - 29 mmol/L 06/23/2023 6:45 PM T [facility] Anion Gap 8 7 - 16 mmol/L 06/23/2023 6:45 PM T [facility] Calcium 9.6 8.4 - 10.4 mg/dL 06/23/2023 6:45 PM T [facility] BUN 26 7 - 26 mg/dL 06/23/2023 6:45 PM T [facility] Creatinine 1.70(H) 0.55 - 1.02 mg/dL 06/23/2023 6:45 PM T [facility] Albumin 3.8 3.5 - 5.0 g/dL 06/23/2023 6:45 PM T [facility] Phosphorus 3.0 2.3 - 4.7 mg/dL 06/23/2023 6:45 PM T [facility] Glucose 150(H) 70 - 100 mg/dL 06/23/2023 6:45 PM [facility] Comment:The given reference range is for the fasting state. Non-fasting reference range for glucose is 70 - 180 mg/dL. GFR, Estimated 35(L) >60 mL/min/1. 73m2 06/23/2023 6:45 PM T [facility] Hours Fasting 0.1 8 - 12 Hours 06/23/2023 6:45 PM [facility] Blood Venipuncture / Unknown 06/23/2023 12:12 PM CDT 06/23/2023 12:17 PM CDT Nancy Stock MD LAB_1 [facility] [address] documented in this encounter Visit Diagnoses Diagnosis Stage 3b chronic kidney disease (HRC) Anemia, unspecified type documented in this encounter Additional Health Concerns Infection Onset Date Last Indicated Resolved Time MRSA Comment:Beronica -4-15, 01/06/16 12/30/2014 12/30/2014 documented as of this encounter Care Teams Truck Car And Bus Cleaner Relationship Specialty Start Date End Date Nikita Gamble MD [address] [place] [address] PCP - General Family Practice 06/23/23 documented as of this encounter
--- OUTSIDE RECORDS SUMMARY | 2023-07-05 13:26 | XMS_ITS | Referral Summary ---
Author Name Unknown Organization [place] Address [address] [place] [address]. [place] [address] Care Team Providers Care [employer] Business Representative Name Role Phone Jocelyn Davidson RD Unavailable [phone] Nikita Gamble MD Primary Care Provider Naveen Casiano MD Unavailable [phone] Mikki Blevins MD Unavailable [phone] Mindi Llanes PA-C Unavailable [phone] Allergies No known active allergies Medications Medication [...] hours Using T:Connect: Yes Dexcom Sharing Code: [id number] 02/21/2019 Active blood glucose (ACCU-CHEK RADHA [...] Assigned at Female 03/04/2020 12:33 PM DIRECTOR NEWS Gender Identity Female 03/04/2020 12:33 PM DIRECTOR NEWS Sexual Orientation Straight 03/04/2020 12 :33 PM DIRECTOR NEWS Last Filed Vital Signs Vital Sign Reading Time Taken Comments Blood Pressure 128/68 11/06/2020 3:31 PM CDT Pulse 75 11/06/2020 3:31 PM CDT Temperature 37 ??C (98.6 ??F) 11/06/2020 3:31 PM CDT Respiratory Rate 19 02/26/2020 1:31 PM DIRECTOR NEWS Oxygen Saturation 96% 11/06/2020 3:31 PM CDT Inhaled Oxygen Concentration - - Weight 111.1 kg (245 lb) 02/09/2022 9:39 AM DIRECTOR NEWS last recorded Height 180.3 cm (5' 11) 02/09/2022 9:39 AM DIRECTOR NEWS pt reported Body Mass Index 34.17 02/09/2022 9:39 AM DIRECTOR NEWS Plan of Treatment Not on file Care Teams [employer] Business Representative Relationship Specialty Start Date End Date Nikita Gamble MD [facility] [address] [place] [address] PCP - General Family Medicine 05/26/20 Jocelyn Davidson, RD [place] [phone] [place] [address] Vacuum Closing Machine Operator Dietitian, Registered 05/25/18 [place] [address] [place] [address] Assigned PCP 11/16/20 Mikki Blevins MD [address] [place] [address] Endocrinology, Diabetes, and Metabolism 05/07/21 Mindi Llanes PA-C [address] [facility] [address] [place] [address] Assigned Surgical Provider 09/26/21
--- OUTSIDE RECORDS SUMMARY | 2023-07-05 13:26 | XMS_ITS | Encounter Summary ---
Author Name Unknown Organization [facility] Address [address], [place] [address] Care Team Providers Care Sample Hand Name Role Phone Nikita Gamble MD Primary Care Provider Encounter Details Date Type Department Care Team (Late st Contact Info) Description 04/28/[address] [facility] Radiology [address] [place] [address] Radiology, Provider MRI SAFETY SHEET AND COMPATIBILITY [...] CDT Appointment Specialty Center [address] [place] [address]. [place] [address] Kary Adhikari MD [address] [place] [address] 07/28/2023 2:15 PM CDT Appointment Specialty [facility] 401 End[facility] [address] [place] [address]. [place] [address] Logan Parra PA-C [address] [place] [address] 08/09/2023 10:30 AM CDT Telemedicine [facility] Nephrology [address] [place], [place] [phone] Nancy Stock MD [address] [place], [place] [phone] 09/09/2023 9:00 AM CDT [facility] [address] UroGynecology [address] [place] [address] Annelise Hayes MD [address] [place], [place] [phone] documented as of this encounter Visit Diagnoses Not on filedocumented in this encounter Additional Health Concerns Infection Onset Date Last Indicated Resolved Time MRSA Comment:Beronica 10-4-15, 01/06/16 12/30/2014 12/30/2014 documented as of this encounter Care Teams Sample Hand Relationship Specialty Start Date End Date Nikita Gamble MD [address] [place] [address] PCP - General Family Practice 06/23/23 documented as of this encounter
--- OUTSIDE RECORDS SUMMARY | 2023-07-05 13:26 | XMS_ITS | Clinical Summary ---
Author Name Unknown Organization [employer] [facility] Address [place], [place] [address] Care Team Providers Care Line Tender Name Role Phone None Unavailable Unavailable Pcp, No Primary Care Provider Unavailabl e [facility], [place] Unavailable Allergies No known active allergies Medications Medication Sig Dispensed Refills Start Date End Date Status aspirin enteric coated 81 mg tabletIndications:Di abetes mellitus type 1 (HC) Take 1 tablet by mouth once daily with a meal. 0 05/31/2013 Active citalopram (CELEXA) 40 mg tabletIndications:De pression with anxiety TAKE ONE TABLET BY MOUTH ONCE DAILY 90 tablet 10/13/2016 Active GLUCAGON EMERGENCY KIT, HUMAN, 1 mg kitIndications:Type 1 diabetes mellitus with other specified complication (HC) INJECT 1 MG INTRAMUSCULAR ONE TIME IF NEEDED FOR LOW BLOOD SUGAR AND UNABLE TO SWALLOW 2 Each 2 10/26/2016 Active tolterodine (DETROL) 2 mg tabletIndications:Ur inary incontinence, unspecified type TAKE ONE TABLET BY MOUTH TWICE DAILY 180 tablet 02/09/2017 Active estradiol (ESTRACE) 0.1 mg/g vaginal cream Insert 0.5 g into the vagina. Two days per week 3 10/28/2017 Active levothyroxine (SYNTHROID) 200 mcg tablet Take 200 mcg by mouth before breakfast. Active pregabalin (LYRICA) 300 mg capsule Take 300 mg by mouth two times daily. Active methocarbamoL (ROBAXIN) 500 mg tablet Take 500 mg by mouth 4 times daily if needed for Muscle Spasm. Active amoxicillin (AMOXIL) 500 mg capsule Take 2,000 mg by mouth each time if needed (prior to dentist appointment). Active oxybutynin XL (DITROPAN XL) 10 mg CR tablet Take 10 mg by mouth once daily. Active phentermine (ADIPEX-P) 37.5 mg tablet Take 37.5 mg by mouth once daily. Active calcium carbonate-vitamin D3, 600 mg-400 unit, 600 mg-10 mcg (400 unit) tablet Take 1 Tablet by mouth once daily with a meal. Active lansoprazole (PREVACID) 30 mg capsule Take 30 mg by mouth two times daily before meals. Active rizatriptan (MAXALT ANESTHESIA ATTENDING) [address] 10 mg on the tongue 2 times daily if needed for Migraine. Give at minimum 2hrs apart. Max Dose: 30mg per 24hrs. Active topiramate (TOPAMAX) 100 mg tablet Take 200 mg by mouth once daily. Active amitriptyline (ELAVIL) 25 mg tablet Take 25-50 mg by mouth at bedtime if needed. Active furosemide (LASIX) 40 mg tablet Take 40 mg by mouth once daily. Active valACYclovir (VALTREX) 500 mg tablet Take 500 mg by mouth 2 times daily if needed. Active vitamin B complex (B-COMPLEX VITAMIN) tablet Take 1 Tablet by mouth once daily. Active docusate (COLACE) 100 mg capsule Take 100 mg by mouth once daily. Active amLODIPine (NORVASC) 10 mg tabletIndications:HT N (hypertension) Take 1 Tablet (10 mg) by mouth once daily. 30 Tablet 02/06/2022 Active HYDROmorphone (DILAUDID) 2 mg tabletIndications:In tra-abdominal abscess (HC) Take 1 Tablet (2 mg) by mouth every 6 hours if needed for Pain. 10 Tablet 02/05/2022 Active insulin aspart, U-100, (NOVOLOG FLEXPEN) [...] aureus infe ction 12/30/2014 Overview: Overview: Beronica 12-29-14 (surveillance swab for health care worker, not [...] hypoglycemic unawareness. Has a consult with Dr Russell in a few week. Met with Naveen, the religious educator, ~2 months ago. Hypothyroidism Overview: Levothyroxine. TSH (uIU/mL) Date Value 05/04/2016 0.24 (L) Knee osteoarthritis Overview: bilateral, has had injections. Hurts daily. Pain 7-8/10. Can't be seen at [place], owes them money. They suggested 2 total [...] Comments Blood Pressure 133/60 03/10/2022 11:30 AM KEYMODULE ASSEMBLY MACHINE TENDER Pulse 63 03/10/2022 11:30 AM KEYMODULE ASSEMBLY MACHINE TENDER Temperature 36.5 ??C (97.7 ??F) 03/10/2022 9:35 AM CS T Respiratory Rate 18 03/10/2022 11:15 AM KEYMODULE ASSEMBLY MACHINE TENDER Oxygen Saturation 97% 03/10/2022 11:30 AM KEYMODULE ASSEMBLY MACHINE TENDER Inhaled Oxygen Concentration - - Weight 129 [...] 21-65 06/09/2020 06/09/2017, 2017 COVID-19 vaccine series (3 - 2022-24 season) 2022 06/12/2020, 05/22/2020 Influenza for age 50-64 11/27/2023 01/12/2016, 12/26 Tetanus booster 01/11/2026 01/12/2016, 08/24/2005 Tdap Completed 08/24/2005 Pneumococcal series for age 6-64 Aged Out No longer eligible based on patient's age to complete this topic Medical Devices Implanted Type Area Tool Designer Apprentice Device Identifier Shelf Expiration Date Model / Serial / Lot Stent Biliary [id number] Advanix Duodenal Bend Plst Implanted:Qty: 1 on 01/25/2022 by Jonathan Donaldson MD at [facility] N/A: Common Bile Duct 10/29/2023 [id number] / / [id number] Description:Stent Biliary 10 Frx5cm Advanix Duodenal Bend Plst Procedures Procedure Name Priority Date/Time Associated Diagnosis Comments LEAD PORTFOLIO MANAGER THIN PREP PAP SCREEN IMAGED Routine 06/09/2017 11:10 AM CDT LIPID PANEL W REFLEX MEASURED LDL Routine 06/22/2013 11:30 AM CDT Diabetes mellitus type 1 from Last 3 Months or Most Recently Relevant to Health Maintenance Results * LEAD PORTFOLIO MANAGER THIN PREP PAP SCREEN IMAGED (06/09/2017 11:10 AM CDT) Case Report Gynecologic Cytology Report ? Case: [id number] ? Authorizing Provider: ??Goran Lloyd MD ?Collected: ? 06/09/2017 1110 ? First Screen: ?Ramila Araiza ?Received: ?06/13/2017 0720 ? Rescreen: ?Evette Hunter ? Specimen: ?LEAD PORTFOLIO MANAGER ThinPrep Vial Screening, Cervical/Vaginal ? 06/17/2017 3:10 PM CDT [facility] INTERPRETATION/ RESULT NEGATIVE FOR INTRAEPITHELIAL LESION OR MALIGNANCY (NIL) (none) 06/17/2017 3:10 PM [facility] IMEN ADEQUACY Satisfactory for evaluation No endocervical component seen 06/17/2017 3:10 PM T [facility] HPV REQUEST HPV and PAP 06/17/2017 3:10 PM [facility] Automated Review Successful 06/17/2017 3:10 PM [facility] Comment:Specimen processed s uccessfully by automated glass or mirror inspector device, ThinPrep Imaging System, [employer] ANCILLARY TESTING LEAD PORTFOLIO MANAGER HPV Ordered, Please see separate report 06/17/2017 3:10 PM [facility] Note The pap test is a screening technique, not a diagnostic procedure. ??It is used primarily to screen for squamous cancers and precursor lesions. ??Published studies have shown that it is subject to both false negative and false positive results. ??The pap test should not be used as the sole means to diagnose or exclude pre-malignant and malignant lesions. Interpreted at [facility] ([facility], [facility], [facility], [facility], [facility], [facility], [facility], [facility]) 06/17/2017 3:10 PM CDT [facility] Other (Cervical/Vagina l) 06/09/2017 11:10 AM CDT 06/13/2017 7:20 AM CDT Goran Lloyd MD PATHOLOGY/CYTOLOGY [facility] [address] [place] [address], [place] * LIPID PANEL W REFLEX MEASURED LDL (06/22/2013 11:30 AM CDT) CHOLESTEROL,TOTAL 147 100 - 199 mg/dL 06/22/2013 12:14 PM T [facility] TRIGLYCERIDES 136 <150 mg/dL 06/22/2013 12:14 PM [facility] HDL CHOLESTEROL 56 >40 mg/dL 4 12:14 PM [facility] NON-HDL CHOLESTEROL 91 <145 mg/dl 06/22/2013 12:14 PM [facility] CHOL/HDL RATIO 2.63 <4.50 06/22/2013 12:14 PM [facility] LDL CHOLESTEROL 64 <=130 mg/dL 06/22/2013 12:14 PM [facility] PATIENT STATUS FASTING 06/22/2013 12:14 PM [facility] Blood specimen (specimen) BLOOD SPECIMEN / Unknown Venipuncture / Unknown 06/22/2013 11:30 AM CDT 06/22/2013 11:30 AM CDT Kelly Beltre MD CHEMISTR Y [address] [address] from Last 3 Months or Most Recently Relevant to Health Maintenance Additional Health Concerns Infection Onset Date Last Indicated MRSA Clearance Comment:Infection Control Note: Hx of MRSA 09/16/2017 source unknown, surveillance criteria met, no need for further testing or isolation precautions. Do not delete or resolve the Infection Flag. 03/10/2022 03/10/2022 Advance Directives * Full Code (Latest Code Status on File) Date Activated Date Inactivated Comments 03/10/2022 8:46 AM 03/10/2022 2:11 PM Question Answer Comments Code Status Discussion: Unable to Assess Preferences, Provider to review later * Full Code Date Activated Date Inactivated Comments 01/25/2022 1:56 AM 02/05/2022 6:03 PM Question Answer Comments Code Status Discussion: Reviewed Preferences * Full Code Date Activated Date Inactivated Comments 01/25/2022 1:38 AM 01/25/2022 1:56 AM Question Answer Comments Code Status Discussion: Unable to Assess Preferences, Provider to review later * Full Code Date Activated Date Inactivated Comments 09/14/2017 9:32 AM 09/19/2017 11:28 PM Question Answer Comments Code Status Discussion: Discussed * Full Code Date Activated Date Inactivated Comments 06/28/2016 3:13 PM 07/01/2016 4:08 PM Question Answer Comments Code Status Discussion: Not Discussed Care Teams Line Tender Relationship Specialty Start Date End Date Pcp, No . PCP - General 12/06/18 None . 01/04/13 [facility] [address], [place] [address] 02/05/22
--- OUTSIDE RECORDS SUMMARY | 2023-07-05 13:26 | XMS_ITS | Encounter Summary ---
Author Name Unknown Organization [facility] Address [address] [place] [address] Care Team Providers Care Animal Keeper Name Role Phone No Primary/Referring, Phy Primary Care Provider Unavailable Reason for Referral * Consult/Transfer Care (Routine) - New Request Specialty Diagnoses / Procedures Referred By Yuliana lazo Referred To Contact Diagnoses BMI 35.0-35.9,adult Logan Parra PA-C [address] [place] [address] Referral ID Status Reason Start Date Expiration Date V isits Requested Visits Authorized [id number] New Request 05/26/2023 08/24/2024 1 1 Scheduling Instructions Your clinician has recommended an appointment with [facility] Nutrition/Dietitian. Please call [phone] to schedule your appointment. This recommended service/s may not be covered by your insurance coverage. To find out your specific benefit coverage, please call the number on your insurance card. Question Answer Appointment Urgency? Non-Urgent Reason for visit? Diabetes, Needs Weight Loss INSPECTOR * Consult/Transfer Care (Routine) - Closed Specialty Diagnoses / Procedures Referred By Contgordon lazo Referred To Contact Diagnoses History of snoring Logan Parra PA-C [address] [place] [address] Referral ID Status Reason Start Date Expiration Date Visits Re quested Visits Authorized [id number] Closed 05/26/2023 08/24/2024 1 1 Scheduling Instructions Your clinician has recommended an appointment with [facility] Services. Within this referral they may select to recommend you for: A. Consultation/Office Visit with a Sleep Medicine Specialist B. Consultation/Office Visit with an Insomnia Specialist C. Sleep Testing -In-Center Overnight Sleep Study D. Portable/Home Sleep test (Not all individuals will qualify for this type of study) Please Note: If sleep testing is recommended, it is not an automatic sleep study order and must first be reviewed by a sleep specialist to determine the next steps. The review process looks at multiple factors including your insurance requirements, personal health history, and [place] [employer] guidelines. This sleep services referral will be reviewed within two (2) business days and sent to the appropriate department for scheduling of the recommended appointment. If you do not hear from us within the next two (2) weeks, please contact us to help with triaging of your order: [facility]- [phone] Question Answer Appointment Urgency Non-Urgent Sleep Service Requested Sleep Consult Signs/Symptoms of JUSTO Excessive Daytime Sleepiness, Gasping/Choking at night, Habitual or Disruptive Snoring Comments Comments: Age/Sex: 58 y.o. / female Height: 05/26/23 : 5' 11 (1.803 m) Weight: 05/26/23 : 257 lb 12.8 oz (116.9 kg) BMI: Estimated body mass index is 35.96 kg/m?? as calculated from the following: Height as of this encounter: 5' 11 (1.803 m). Weight as of this encounter: 257 lb 12.8 oz (116.9 kg). INSPECTOR Reason for Visit * Reason Comments Diabetes Type I Encounter Details Date Type Department Care Team (Latest Contact Info) Description 05/26/2023 11:15 AM CAR INSPECTOR Office Visit Specialty Center [address] [facility] [address] [place] [address]. [place], [place] [id number] Logan Parra PA-C [address] [place] [id number] Type 1 diabetes mellitus with hypoglycemia and without coma (HRC) (Primary Dx); Benign essential hypertension (HRC); Hypothyroidism, unspecified type (HRC); Stage 3 chronic kidney disease, unspecified whether stage 3a or 3b CKD (HRC); Congenital kidney disease; Diabetic peripheral neuropathy associated with type 1 diabetes mellitus (HRC); History of snoring; BMI 35.0-35.9,adult; Superficial burn; Brittle nails; Hair loss Social History Tobacco Use Types Packs/Day Years [...] Sign Reading Time Taken Comments Blood Pressure 142/54 05/26/2023 11:33 AM CAR INSPECTOR Pulse 58 05/26/2023 11:33 AM CAR INSPECTOR Temperature - - Respiratory Rate - - Oxygen Saturation - - Inhaled Oxygen Concentration - - Weight 116.9 kg (257 lb 12.8 oz) 2023 11:33 AM CAR INSPECTOR Height 180.3 cm (5' 11) 05/26/2023 11: 33 AM CAR INSPECTOR Body Mass Index 35.96 05/26/2023 11:33 AM CAR INSPECTOR documented in this encounter Patient Instructions * Patient Instructions* Logan Parra PA-C - 05/26/2023 11:15 AM CAR INSPECTOR Plan: Change insulin to carb ratio to 1 unit per 9.5 g carbs INSPECTOR documented in this encounter Progress Notes * Logan Parra PA-C - 05/26/2023 11:15 AM CST Endocrine Follow Up Visit Reason for visit: Type 1 diabetes HPI: Marnie Duvall is a 58 y.o. old female returns for follow up. Hand burn: pt gave herself a superficial burn on her hand. Asked for silvadene for healing. Using topical bacitracin. Notes that she is still tending to bolus after she eats, due to concerns of lows. Weight concerns: long hx of issues with weight control. Says has no appetite. Breakfast: says she doesn't eat anything Doesn't eat until 3-4 in the afternoon First meal of day: yogurt, raspberries, belvita crackers, etc. Usually something Usually eating dinner around 7 pm: a protein, baked veggies. Tends to stay lower carb. Snacks: pretzel sticks, almonds, pumpkin seeds. Trying to drink more water, zero que soda/sparkling water. Doesn't regularly drink Usually in bed by 1 pm. Insulin regimen: Type of Pump: Tandem Basal Rates: 0000 - 0.800 U/hr 1000 - 0.950 U/hr 1400 - 0.950 U/hr 1600 - 0.700 U/hr Insulin to Carbohydrate Ratio: 0000 - 1 unit per 8.5 grams 1000 - 1 unit per 8.5 grams 1400 - 1 unit per 8.5 grams 1600 - 1 unit per 8.5 grams Sensitivity / Correction Factor: 0000 - 30 mg/dL 1000 - 30 mg/dL 1400 - 30 mg/dL 1600 - 30 mg/dL Target Blood Glucose: 110 all day Active Insulin Time: 3.5 Hours 67 TDD Review of Blood Sugars: CGM interpretation: -Time in Range (TIR): 60% -Average Blood Sugar: 173 mg/dL -Percent low blood sugars: 1.3% -CGM Trend: majority in range. Often sitting high in that range. Review of Systems: Please see HPI as well. No vision changes, chest pain, shortness of breath, gastrointestinal complaints, urinary complaints. Past Medical History reviewed Social History reviewed Physical Exam: Vitals: 05/26/23 1133 BP: (!) 142/54 Pulse: (!) 58 Psych: patient pleasant. As per usual for pt, a great deal of negative self-talk regarding her body Eyes: extra-ocular movements intact Lungs: no SOB with speech Skin: very superficial burn on hand, no signs of infection. Healing in early stages Musculoskeletal: No kyphosis. Lab Results Component Value Date Hemoglobin A1C 7.7 (H) 02/07/2023 Lab Results Component Value Date Sodium 140 02/18/2023 Potassium 4.9 02/18/2023 Chloride 105 02/18/2023 CO2 25 02/18/2023 TSH, Sensitive 1.75 02/07/2023 WBC 5.0 02/18/2023 RBC 3.84 (L) 02/18/2023 Hemoglobin 11.5 (L) 02/18/2023 HCT 35.5 02/18/2023 MCV 92.4 02/18/2023 RDW 12.9 02/18/2023 Platelets 216 02/18/2023 Albumin 3.9 02/18/2023 ALT (SGPT) 19 02/18/2023 AST (SGOT) 19 02/18/2023 Alkaline Phosphatase 91 02/18/2023 Bilirubin, Direct 0.0 04/29/2015 Bilirubin, Total 0.3 02/18/2023 Phosphorus 2.8 04/28/2015 Lab Results Component Value Date ALT (SGPT) 19 02/18/2023 AST (SGOT) 19 02/18/2023 Alkaline Phosphatase 91 02/18/2023 Bilirubin, Direct 0.0 04/29/2015 Bilirubin, Total 0.3 02/18/2023 Assessment and Plan: ICD-10-CM 1. Type 1 diabetes mellitus with hypoglycemia and without coma ([facility]) E10.649 2. Benign essential hypertension ([facility]) I10 3. Hypothyroidism, unspecified type ([facility]) E03.9 4. Stage 3 chronic kidney disease, unspecified whether stage 3a or 3b CKD ([facility]) N18.30 5. Congenital kidney disease N28.9 6. Diabetic peripheral neuropathy associated with type 1 diabetes mellitus ([facility]) E10.42 Type 1 diabetes mellitus: Encouraged to prebolus before meals. Discussed that if we lower the I:C ratio, she can still accurately carb count, and then have less likelihood of lows. Changing ICR to 1 unit per 9.5 g Weight: pt says that she is eating very little, but that she cannot lose weight. While it sounds like her diet is pretty restrictive, I would like her to meet with a raschel knitting machine operator to really drill down into what she's taking in. Ultimately, my weight loss options are all appetite suppressants, so if herappetite is really very minimal, these may not be helpful. Given her insurance, unlikely we can her on a glp1, even if it were indicated. HTN: a little elevated today, but not by much. Will recheck at next visit. CKD: following with nephrology. Seeing them 05-31-22 Thyroid: TSH came back very low, recommend decreasing her levo dose a few days a week from 175 to 150. Had staff reach out to her regarding this. When they did so, pt said she wouldn't make any changes until I addressed her brittle nails, hair loss, and temperature intolerance. These symptoms of course have a wide differential. As regards the brittle nails, we've already eliminated anemia. We didn't discuss her hair loss at this visit. Biotin may help with nails. Fatigue: recommended pt meet with sleep medicine to discuss fatigue, possible need for JUSTO assessment. Hand lesion: discussed that bacitracin is the right med to be using. Discussed return precautions. Didn't prescribe silvadene. Total encounter time is 40 minutes, which includes visiting with patient, reviewing previous notes,reviewing tests, ordering medications, documenting in the electronic medical record, and/or coordinating care. Logan Parra PA-C 05/26/23 11:54 AM INSPECTOR documented in this encounter Plan of Treatment Upcoming Encounters Date Type Department Care Team (Late st Contact Info) Description 07/20/2023 9:30 AM CDT Appointment Specialty [facility] [address] [place] [phone] Kary Adhikari MD [address] [place] [id number] 07/28/2023 2:15 PM CDT Appointment Special[facility] [address] [place] [id number] Logan Parra PA-C [address] [place] [address] 08/09/2023 10:30 AM CDT Telemedicine [facility] Nephrology [address] [place] [id number] Nancy Stock MD [address] [place] [phone] 09/09/2023 9:00 AM CDT Appointment [facility] [address] [place] [address] Annelise Hayes MD [address] [place] [address] Scheduled Referrals Name Type Priority Associated Diagnoses Orde r Schedule Sleep Services Referral Routine History of snoring Ordered: 05/26/2023 NUTRITION/DIETITIAN Referral Routine BMI 35.0-35.9,adult Ordered: 05/26/2023 documented as of this encounter Results * Free T4 (05/26/2023 12:25 PM CAR INSPECTOR) T4, Free 1.2 0.7 - 1.5 ng/dL 05/26/2023 4:00 PM CAR INSPECTOR [facility] Blood Venipuncture / Unknown 05/26/2023 12:25 PM CAR INSPECTOR 05/26/2023 12:25 PM CAR INSPECTOR Logan Parra PA-C LAB_1 Performing Organization Address City/[facility]/ZIP Co de Phone Number [facility] [address] * (ABNORMAL) TSH (05/26/2023 12:25 PM CAR INSPECTOR) TSH, Sensitive 0.05(L) 0.30 - 4.50 uIU/mL 05/26/2023 4:00 PM CAR INSPECTOR [facility] Blood Venipuncture / Unknown 05/26/2023 12:25 PM CAR INSPECTOR 05/26/2023 12:25 PM CAR INSPECTOR Logan Parra PA-C LAB_1 Performing Organization Address City/[facility]/ZIP Co de Phone Number [facility] [address] documented in this encounter Visit Diagnoses Diagnosis Type 1 diabetes mellitus with hypoglycemia and without coma (HRC)- Primary Type I (juvenile type) diabetes mellitus with other specified manifestations, not stated as uncontrolled Benign essential hypertension (HRC) Essential hypertension, benign Hypothyroidism, unspecified type (HRC) Stage 3 chronic kidney disease, unspecified whether stage 3a or 3b CKD (HRC) Congenital kidney disease Unspecified disorder of kidney and ureter Diabetic peripheral neuropathy associated with type 1 diabetes mellitus (HRC) Type I (juvenile type) diabetes mellitus with neurological manifestations, not stated as uncontrolled History of snoring BMI 35.0-35.9,adult Body Mass Index 35.0-35.9, adult Superficial burn Brittle nails Other specified disease of nail Hair loss Alopecia, unspecified documented in this encounter Additional Health Concerns Infection Onset Date Last Indicated Resolved Time MRSA Comment:Beronica 10-4-15, 01/06/16 12/30/2014 12/30/2014 documented as of this encounter Care Teams Animal Keeper Relationship Specialty Start Date End Date No Primary/Referring, Phy PCP - General 11/17/12 4 documented as of this encounter
--- OUTSIDE RECORDS SUMMARY | 2023-07-05 13:26 | XMS_ITS | Encounter Summary ---
Author Name Unknown Organization [facility] Address [address] [place] [address] Care Team Providers Care Senior Facilities Manager Name Role Phone No Primary/Referring, Phy Primary Care Provider Unavailable Encounter Details Date Type Department Care Team (Late st Contact Info) Description 05/26/2023 1:20 PM TRIM INSTALLER Lab Visit [facility] Laboratory [address] [place] [address] Type 1 diabetes mellitus with hypoglycemia and without coma (HRC); Hypothyroidism, unspecified type (HRC) Social History Tobacco Use Types Packs/Day [...] CDT Appointment [facility] [address] [place] [address]. [place] [address] Kary Adhikari MD [address] [place] [address] 07/28/2023 2:15 PM CDT Appointment [facility] 401 Endocr[facility] [place] [address] Logan Parra PA-C 401 [place] [address] 08/09/2023 10:30 AM CDT Telemedicine [facility] Nephrology 205 [facility] [place] [address] Nancy Stock MD [address] [place], [place] [id number] 09/09/2023 9:00 AM CDT Appointment [facility] 435 UroGynecology 435 [facility] [place], [place] [phone] Annelise Hayes MD [address] [place], [place] [id number] documented as of this encounter Procedures Procedure Name Priority Date/Time Associated Diagnosis Comments TSH, SENSITIVE Routine 05/26/2023 12:25 PM TRIM INSTALLER Hypothyroidism, unspecified type (HRC) FREE T4 Routine 05/26/2023 12:25 PM TRIM INSTALLER Hypothyroidism, unspecified type (HRC) HGB A1C Routine 05/26/2023 12:25 PM TRIM INSTALLER Type 1 diabetes mellitus with hypoglycemia and without coma (HRC) documented in this encounter Results * Free T4 (05/26/2023 12:25 PM TRIM INSTALLER) T4, Free 1.2 0.7 - 1.5 ng/dL 05/26/2023 4:00 PM TRIM INSTALLER [facility] Blood Venipuncture / Unknown 05/26/2023 12:25 PM TRIM INSTALLER 05/26/2023 12:25 PM TRIM INSTALLER Logan Parra PA-C LAB_1 [facility] [address] [address], [facility] * (ABNORMAL) TSH (05/26/2023 12:25 PM TRIM INSTALLER) TSH, Sensitive 0.05(L) 0.30 - 4.50 uIU/mL 05/26/2023 4:00 PM TRIM INSTALLER [facility] Blood Venipuncture / Unknown 05/26/2023 12:25 PM TRIM INSTALLER 05/26/2023 12:25 PM TRIM INSTALLER Logan Parra PA-C LAB_1 Performing Organization Address [facility] Co de Phone Number [facility] [address] * (ABNORMAL) Hgb A1C (05/26/2023 12:25 PM TRIM INSTALLER) Hemoglobin A1C 7.4(H) <=5.6 % 05/26/2023 4:50 PM TRIM INSTALLER [facility] Estimated Average Glucose (Calc) 166 < 117 mg/dL 05/26/2023 4:50 PM [facility] Comment:Estimated average gl ucose (eAG) converts A1c into glucose units (mg/dL) and estimates average glucose over the past approximately 3 months. The eAG reference interval (<117 mg/dL) corresponds to an A1c of <5.7%. Blood Venipuncture / Unknown 05/26/2023 12:25 PM TRIM INSTALLER 05/26/2023 12:25 PM TRIM INSTALLER Narrative [facility] - 05/26/2023 4:50 PM TRIM INSTALLER For patients not previously diagnosed with diabetes: 5.7-6.4%: Increased risk for diabetes 6.5% and greater: Diagnostic for diabetes For patients diagnosed with diabetes: <8.0%: Goal of therapy for ages 18-75 Clinicians may recommend a higher or lower goal for specific individuals. Logan Parra PA-C LAB_1 Performing Organization Address City/[facility]/ZIP Co de Phone Number [facility] [address] documented in this encounter Visit Diagnoses Diagnosis Type 1 diabetes mellitus with hypoglycemia and without coma (HRC) Type I (juvenile type) diabetes mellitus with other specified manifestations, not stated as uncontrolled Hypothyroidism, unspecified type (HR) documented in this encounter Additional Health Concerns Infection Onset Date Last Indicated Resolved Time MRSA Comment:Beronica 10-4-15, 01/06/16 12/30/2014 12/30/2014 documented as of this encounter Care Teams Senior Facilities Manager Relationship Specialty Start Date End Date No Primary/Referring, Phy PCP - General 11/17/12 4 documented as of this encounter
--- OUTSIDE RECORDS SUMMARY | 2023-07-05 13:26 | XMS_ITS | Encounter Summary ---
Author Name Unknown Organization [facility] Address [address] [place] [address]. [place] [address] Care Team Providers Care Pouch Making Machine Operator Name Role Phone StuartJocelyn Bran YANEZ Unavailable [phone] Nikita Gamble MD Primary Care Provider Naveen Casiano MD Unavailable [phone] Mikki Blevins MD Unavailable [phone] Mikki Blevins MD Unavailable [phone] Mindi Llanes PA-C Unavailable [phone] Encounter Details Date Type Department Care Team (Late st Contact Info) Description 02/11/2022 [facility] [facility] Surgical Weight Loss Clinic [address] [address] Jammie Mohr, RN Social History Tobacco Use Types Packs/Day Years Used Date Smoking Tobacco: Never Smokeless Tobacco: Never Alcohol Use Standard Drinks/Week Comments Yes 0 (1 standard drink = 0.6 oz pur e alcohol) rare PHQ-2 Answer Date Recorded PHQ-2 Score 0 02/26/2020 Sex and Gender Information Value Date Recorded Sex Assigned at Female 03/04/2020 12:33 PM GARDENING SUPERVISOR Gender Identity Female 03/04/2020 12:33 PM GARDENING SUPERVISOR Sexual Orientation Straight 03/04/2020 12 :33 PM GARDENING SUPERVISOR documented as of this encounter Plan of Treatment Not on file documented as of this encounter Visit Diagnoses Not on filedocumented in this encounter Additional Health Concerns Assessment Noted Time PHQ-9 Depression Total Score: 0 02/26/20 20 1:30 PM GARDENING SUPERVISOR documented as of this encounter Care Teams Pouch Making Machine Operator Relationship Specialty Start Date End Date Nikita Gamble MD [place] [address] [place] [address] PCP - General Family Medicine 05/26/20 Jocelyn Davidson, RD [place] [address] [place] [address] Contact Person Dietitian, Registered 05/25/18 [place] [address] [place] [address] Assigned PCP 11/16/20 Mikki Blevins MD [address] [place] [address] Endocrinology, Diabetes, and Metabolism 05/07/21 [place] [address] Assigned Endocrinology Provider 08/02/21 01/28/23 Mindi Llanes PA-C [address] [facility] [place] [address] [place] [address] Assigned Surgical Provider 09/26/21 documented as of this encounter
--- OUTSIDE RECORDS SUMMARY | 2023-07-05 13:26 | XMS_ITS | Encounter Summary ---
Author Name Unknown Organization [facility] Address [address] [place] [address]. [place] [address] Care Team Providers Care Certified Medical Technician Name Role Phone StuartJocelyn desouza Bran YANEZ Unavailable [phone] Nikita Gamble MD Primary Care Provider Naveen Casiano MD Unavailable [phone] Mikki Blevins MD Unavailable [phone] Mikki Blevins MD Unavailable [phone] Mindi Llanes PA-C Unavailable [phone] Encounter Details Date Type Department Care Team (Late st Contact Info) Description 02/11/2022 [facility] [place] [facility] Surgical Weight Loss Clinic [address] [place] [address] Alix Marquez, VASQUEZ [facility] [address] [place] [address] [address] [place] [address] Social History Tobacco Use Types Packs/Day Years Used Date Smoking Tobacco: Never Smokeless Tobacco: Never Alcohol Use Standard Drinks/Week Comments Yes 0 (1 standard drink = 0.6 oz pur e alcohol) rare PHQ-2 Answer Date Recorded PHQ-2 Score 0 02/26/2020 Sex and Gender Information Value Date Recorded Sex Assigned at Female 03/04/2020 12:33 PM PURCHASER Gender Identity Female 03/04/2020 12:33 PM PURCHASER Sexual Orientation Straight 03/04/2020 12 :33 PM PURCHASER documented as of this encounter Plan of Treatment Not on file documented as of this encounter Visit Diagnoses Not on filedocumented in this encounter Additional Health Concerns Assessment Noted Time PHQ-9 Depression Total Score: 0 02/26/20 20 1:30 PM PURCHASER documented as of this encounter Care Teams Certified Medical Technician Relationship Specialty Start Date End Date Nikita Gamble MD [address] [place] [address] PCP - General Family Medicine 05/26/[address] [place] [address] Training Project Manager Dietitian, Registered 05/25/18 [place] [address] [place] [address] Assigned PCP 11/16/20 Mikki Blevisn MD [address] [place] [address] Endocrinology, Diabetes, and Metabolism 05/07/21 [place] [address] Assigned Endocrinology Provider 08/02/21 01/28/23 Mindi Llanes PA-C [address] [facility] [place] [address] Assigned Surgical Provider 09/26/21 documented as of this encounter
--- OUTSIDE RECORDS SUMMARY | 2023-07-05 13:26 | XMS_ITS | Encounter Summary ---
Author Name Unknown Organization [facility] Address [address] [place] [address] Care Team Providers Care Franchise Broker Name Role Phone No Primary/Referring, Phy Primary Care Provider Unavailable Reason for Visit * Reason Comments Follow Up Medication Encounter Details Date Type Department Care Team (Late st Contact Info) Description 05/27/2023 Telephone Specialty Center 401 Endocrinology [address] [place] [address]. [place], [place] [phone] Logan Parra PA-C [address] [place] [address] Follow Up Medication Social History Tobacco Use Types Packs/Day Years [...] encounter Nursing Notes * Alex Deutsch - 06/07/2023 9:43 AM CDT OPS not read. Called and spoke with pt. Discussed provider's recommendations as listed in detail. Pt agreeable with plan and dose change. Levothyroxine 175 mcg and 150 mcg rx sent to pharmacy per provider's orders. Alex Villalba RN 06/07/2023 9:46 AM * Alex Deutsch - 06/01/2023 4:31 PM CST Noted. OPS sent with provider's recommendations. Alex Villalba RN 06/01/2023 4:31 PM N OPERATOR MARGARINE * Logan Parra PA-C - 06/01/2023 11:59 AM CST Pt doesn't want to change dose of medication, as she is upset I haven't touched on several concenrs. We have discussed these issues at previous visits. Brittle nails - determined not due to anemia Hair loss - lots of possible causes, including poorly controlled thyroid disease, hence the change I wanted to make with medication. May need to see dermatology too. Improved diabetes control may also help here. Cold/chills - again, not unlikely that it's partly to do with thyroid. Can assess these issues at a future visit again as well. For now, recommend change dose of levothyroxine Thanks Fidel N OPERATOR MARGARINE * John Tineo CMA - 05/31/2023 1:02 PM CST Spoke with pt today and informed of recommendations from provider. Pt states she is taking Levothyroxine 175 mcg daily and does not agree to recommendations below until provider address her symptoms of severe hair loss, dry skin, brittle nails, and feeling cold/chills daily. Photographer Model explained to pt of her low thyroid level and the recommended medication change to see if this might help. Fidel, please review and let us know what to do next. Thank you. John Forbes CMA ..... 05/31/2023 1:33 PM N OPERATOR MARGARINE * Evelina Vick CMA - 05/30/2023 9:35 AM CST Called patient. [facility], Endo # provided. KIMBERLY Gtz 05/30/2023, 9:36 AM N OPERATOR MARGARINE * Logan Parra PA-C - 05/27/2023 3:30 PM CST Can we give pt a quick call regarding her levothyroxine? It appears that her prescription lapsed - is she still taking the 175 mcg per day? Her TSH was very low, so we might be able to reduce dose a little. I would say we could try 175 mcg4 days per week, and then 150 the other 3? I can send in the new prescription if she's ok with this. Thanks Fidel N OPERATOR MARGARINE documented in this encounter Plan of Treatment Upcoming Encounters Date Type Department Care Team (Late st Contact Info) Description 07/20/2023 9:30 AM CDT Appointment Specialty Center [address] [place] [address] Kary Adhikari MD [address] [place] [address] 07/28/2023 2:15 PM CDT Appointment Specialty Center 401 Endocrinology Clinic [address] [place] [address] Logan Parra PA-C [address] [place] [address] 08/09/2023 10:[address] [facility] Nephrology [address] [place] [address] Nancy Stock MD [address] [place] [address] 09/09/2023 9:00 AM CDT Appointment Specialty Center 435 UroGynecology 435 [place] [address] Annelise Hayes MD [address] [place] [address] documented as of this encounter Visit Diagnoses Not on filedocumented in this encounter Additional Health Concerns Infection Onset Date Last Indicated Resolved Time MRSA Comment:Beronica 10-4-15, 01/06/16 12/30/2014 12/30/2014 documented as of this encounter Care Teams Franchise Broker Relationship Specialty Start Date End Date No Primary/Referring, y PCP - General 11/17/12 4 documented as of this encounter
--- OUTSIDE RECORDS SUMMARY | 2023-07-05 13:26 | XMS_ITS | Clinical Summary ---
Author Name Unknown Organization [facility] Address [address] [place] [address]. [place] [address] Care Team Providers Care Typewriter Mechanic Name Role Phone Jocelyn Davidson RD Unavailable [phone] Nikita Gamble MD Primary Care Provider Naveen Casiano MD Unavailable [phone] Mikki Blevins MD Unavailable [phone] Mindi Llanes PA-C Unavailable [phone] Allergies No known active allergies Medications Medication [...] hours Using T:Connect: Yes Dexcom Sharing Code: [id number] 0 02/21/2019 Active blood glucose (ACCU-CHEK RADHA [...] Sex Assigned at Female 03/04/2020 12:33 PM SANDWICH BOARD CARRIER Gender Identity Female 03/04/2020 12:33 PM SANDWICH BOARD CARRIER Sexual Orientation Straight 03/04/2020 12 :33 PM SANDWICH BOARD CARRIER Last Filed Vital Signs Vital Sign Reading Time Taken Comments Blood Pressure 128/68 11/06/2020 3:31 PM CDT Pulse 75 11/06/2020 3:31 PM CDT Temperature 37 ??C (98.6 ??F) 11/06/2020 3:31 PM CDT Respiratory Rate 19 02/26/2020 1:31 PM SANDWICH BOARD CARRIER Oxygen Saturation 96% 11/06/2020 3:31 PM CDT Inhaled Oxygen Concentration - - Weight 111.1 kg (245 lb) 02/09/2022 9:39 AM SANDWICH BOARD CARRIER last recorded Height 180.3 cm (5' 11) 02/09/2022 9:39 AM SANDWICH BOARD CARRIER pt reported Body Mass Index 34.17 02/09/2022 9:39 AM SANDWICH BOARD CARRIER Plan of Treatment Health Maintenance Due Date [...] age to complete this topic Care Teams Typewriter Mechanic Relationship Specialty Start Date End Date Nikita Gamble MD [address] [place] [address] PCP - General Family Medicine 05/26/20 Jocelyn Davidson, RENATA [address] [place] [address] Census Clerk Dietitian, Registered 05/25/18 [place] [address] [place] [address] Assigned PCP 11/16/20 Mikki Blevins MD [address] [place] [address] Endocrinology, Diabetes, and Metabolism 05/07/21 Mindi Llanes PA-C [address] [place] [address] [place] [address] Assigned Surgical Provider 09/26/21
--- OUTSIDE RECORDS SUMMARY | 2023-07-05 13:26 | XMS_ITS | Encounter Summary ---
Author Name Unknown Organization [facility] Address [address] [address] Care Team Providers Care Health And Wellness Advisor Name Role Phone No Primary/Referring, Phy Primary Care Provider Unavailable Reason for Referral * Procedure/Equipment (Routine) - Closed Specialty Diagnoses / Procedures Referred By Contac t Referred To Contact Diagnoses Obstructive sleep apnea (adult) (pediatric) Logan Parra PA-C [address] [place] [address] Referral ID Status Reason Start Date Expiration Date Visits Re quested Visits Authorized [id number] Closed 05/26/2023 08/24/2024 1 1 Scheduling Instructions Your clinician has placed an order for you to have a home sleep test. You will be contacted within the next 7-10 business days to discuss scheduling your set-up appointment for this device. There may be a delay in the set-up of your home sleep test due to insurance coverage verification and prior authorization requirements. The location and contact information for the site where you will strip picker your device is as follows: [facility] [address] [address] (option 2) [email or web address] 1. You will be scheduled for a visit to the sleep center to strip picker via a curbside process. Please allow up to 15 minutes for the pick-up appointment. You will be expected to return the device to a drop box outside the clinic the following morning (before 9am). 2. Please notify us immediately at (option 2) if you are unable to keep your appointment. Failure to cancel or re -schedule your appointment may result in a cancellation fee. 3. Based upon the results of your home sleep test one of the following may occur. a. You may be referred back to your ordering provider for a result s visit to discuss the next steps. b. You may be referred for an in-center sleep study for a more thorough diagnostic test. c. You may be referred for an in-center sleep study to titrate Positive Airway Pressure (PAP) for treatment of obstructive sleep apnea (JUSTO). Return for F/U after sleep testing Patient will have the option to receive their results via MyChart or phone. Preliminary results will be provided within 3 business days. Final interpretation will be completed by a sleep specialist and can be discussed at your follow up visit. Depending on results, you may be contacted by Home Medical for positive airway pressure treatment. If you have additional questions, please visit our website at [email or web address] and review the information there. Question Answer Appointment Urgency? Non-Urgent Type of Study? Diagnostic Study Is this a repeat home study? No Reason for visit? EDS, Gasping/Choking, Snoring, HTN, CKD. Eval for JUSTO. Comments SLEEP SERVICES REFERRAL --> HST (sent for cosign) Estimated body mass index is 35.96 kg/m?? as calculated from the following: Height as of an earlier encounter on 05/26/23: 5' 11 (1.803 m). Weight as of an earlier encounter on 05/26/23: 257 lb 12.8 oz (116.9 kg). . DING ROOM SUPERVISOR Encounter Details Date Type Department Care Team (Late st Contact Info) Description 05/26/2023 Notes/Orders Specialty Center 401 Endocrinology [address] [place] [address]. [place], [place] [phone] Logan Parra PA-C [address] [place] [address] Obstructive sleep apnea (adult) (pediatric) (Primary Dx) Social History Tobacco Use Types [...] CDT Appointment Specialty Center 401 [address] [place] [address] Kary Adhikari MD [address] [place] [address] 07/28/2023 2:15 PM CDT Appointment Specialty Center 401 Endocrinology [address] [place] [address] Logan Parra PA-C [address] [place] [address] 08/09/2023 10:30 AM CDT Telemedicine [facility] Nephrology [address] [place] [address] Nancy Stock MD [address] [place] [address] 09/09/2023 9:00 AM CDT Appointment Specialty Center 435 UroGynecology 435 [place] [address] Annelise Hayes MD [address] [place] [address] Scheduled Referrals Name Type Priority Associated Diagnoses Orde r Schedule Sleep Study (Home)-Portable Setup Referral Routine Obstructive sleep apnea (adult) (pediatric) Ordered: 05/26/2023 documented as of this encounter Visit Diagnoses Diagnosis Obstructive sleep apnea (adult) (pediatric)- Primary documented in this encounter Additional Health Concerns Infection Onset Date Last Indicated Resolved Time MRSA Comment:Beronica 10-4-15, 01/06/16 12/30/2014 12/30/2014 documented as of this encounter Care Teams Health And Wellness Advisor Relationship Specialty Start Date End Date No Primary/Referring, Henriettay PCP - General 11/17/12 4 documented as of this encounter
--- OUTSIDE RECORDS SUMMARY | 2023-07-05 13:26 | XMS_ITS | Encounter Summary ---
Author Name Unknown Organization [facility] Address [address] [place] [address] Care Team Providers Care Knowledge Analyst Name Role Phone Nikita Hightower MD Primary Care Provider Reason for Referral * Consult/Transfer Care (Routine) - New Request Specialty Diagnoses / Procedures Referred By Yuliana lazo Referred To Contact Diagnoses Urge incontinence of urine Nancy Stock MD [address] [place] [address] Referral ID Status Reason Start Date Expiration Date V isits Requested Visits Authorized [id number] New Request 06/23/2023 09/21/2024 1 1 Scheduling Instructions Your clinician has recommended an appointment with a [facility] Urology. You can quickly make your appointment online at [employer]/schedule. You can also call [phone] for help scheduling your appointment. We suggest you call your health insurance company about your coverage and benefits for this appointment. Question Answer Appointment Urgency? Non-Urgent Comments Incontinence on med Rx. Reason for Visit * Reason Comments CONSULT * Consult/Transfer Care (Routine) - New Request Specialty Diagnoses / Procedures Referred By Yuliana lazo Referred To Contact Diagnoses Congenital kidney disease Logan Parra PA-C [address] [place] [id number] Referral ID Status Reason Start Date Expiration Date V isits Requested Visits Authorized [id number] New Request 02/18/2023 05/19/2024 1 1 Encounter Details Date Type Department Care Team (Late st Contact Info) Description 06/23/2023 11:00 AM CDT Office Visit [facility] Nephrology [address], [place] [phone] Nancy Stock MD [address], [place] [phone] Stage 3b chronic kidney disease (HRC) (Primary Dx); Essential hypertension (HRC); Anemia, unspecified type; Urge incontinence of urine; Bilateral leg edema; Obesity (BMI 30-39.9) (HRC); H/O unilateral nephrectomy Social History Tobacco Use Types Packs/Day Years [...] Pulse 68 06/23/2023 11:01 AM CDT Temperature - - Respiratory Rate - - Oxygen Saturation - - Inhaled Oxygen Concentration - - Weight 118.8 kg (262 lb) 06/23/2023 10:57 AM CDT Height - - Body Mass Index 36.54 05/26/2023 11:33 AM SYSTEM SPECIALIST documented in this encounter Patient Instructions * Patient Instructions* Nancy Stock MD - 06/23/2023 11:00 AM CDT Please obtain records from Nikita Hightower MD at [facility] in [place], [place]. Check blood pressure at home daily or every other day, in the evening, after 5 minutes of rest; zelalem it. Call us if blood pressure is consistently above 130/80 or below 100/60 (more than 3 readings/ days in a row outside the range) Please message me your readings in 2-3 weeks Blood and urine test today - Will contact you with results and recommendations Please discuss weight loss with Dr Nikita Hightower MD I have referred you to Urology for urge incontinence See me in 4-6 weeks , video visit ok documented in this encounter Progress Notes * Nancy Stock MD - 06/23/2023 11:00 AM CDT Name: Marnie Duvall : 1965 DATE OF SERVICE: 06/23/2023 NAME OF REQUESTING PROVIDER: Logan Hightower MD REASON FOR VISIT: CKD 3b HISTORY OF PRESENTING ILLNESS: Thank you for allowing me to participate in the care of Ms. Marnie Duvall As you know, she is a 58 y.o.woman with a complex medical history, summarized in PMH below, presenting for evaluation and further management of progressive CKD. On review of the record, she has had multiple AKIs in the past: 2016 with a peak creatinine of 2.9 when her sugar was in the 700s. 01/2022 with a peak creatinine of 4.54 when she was septic after cholecystectomy. Baseline creatinine had been 1.3-1.7 at [facility] 2016 to 2021, then noted to be 1.6-1.8 in and 01/2023 (only readings available after the JOSE of 01/2022). 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 NSAIDs: none On lasix 40 mg daily, for severe bilateral LE edema. H/o ulcers. Reluctant to increase lasix re incontinence. Has urge incontinence, on meds, insurance did not cover Urogyn. Interested in Urology eval. Weight: increased from 246 lbs 12/2022 to 262 lbs currently, reportedly due to menopause. Pt monitoring her diet, restricting calories. Recent office blood pressures: 142/54 on 04/2023, BP 168/62 yesterday at PCP, elevated today as well. Home readings: 115s/60 Today, has headache x 2 days. Took maxalt last night, not effective. 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 Lives in [place], [place] PAST MEDICAL HISTORY: CKD 3b S/p Nephrectomy for congenital abnormality in 03/2005 (emergency surgery, ? Pus noted) HTN T1DM with pump, h/p DKA. H/o Generalized tonic-clonic seizure 01/2014 due to hypoglycemia. 49 hs [id number]. GERD Obesity JUSTO Hypothyroidism Bilateral knee OA History of pulmonary embolism Depression with anxiety Latent tuberculosis S/p laparascopic cholecystectomy with SARAY drain 12/2021, c/b sepsis Knee osteoarthritis s/p injections Migraines 2013 Urge incontinence, on med Rx. ALLERGIES: Allergies Allergen Reactions Aleve [Naproxen] Gastrointestinal MEDICATIONS: amoxicillin (AMOXIL) 500 MG capsule, Take 4 Capsules (2,000 mg) by mouth every 24 hours as needed.,Disp: , Rfl: aspirin 81 MG chewable tablet, Take 1 Tab by mouth daily. Indications: Heart protection, Disp: 100 Tab, Rfl: 3 Blood Glucose Monitoring Suppl (Comenta TV CONTOUR MONITOR) W/DEVICE KIT kit, As instructed, Disp: 1 Each, Rfl: 0 blood glucose (MARTIN CONTOUR TEST) strip, 4 x daily. Pharmacy dispense brand based on insurance., Disp: 50 Each, Rfl: PRN calcium carbonate-vitamin D 600-400 MG-UNIT tablet, Take 1 Tablet by mouth daily., Disp: , Rfl: citalopram (AKA CELEXA) 40 MG tablet, Take 1 Tab by mouth daily. Indications: Depression, Disp: 14 Tab, Rfl: 0 cyclobenzaprine (FLEXERIL) 10 MG tablet, Take 1 Tablet (10 mg) by mouth every 8 hours., Disp: , Rfl: estradiol (ESTRACE) 0.1 MG/GM vaginal cream, Insert 0.5 g vaginally two times a week., Disp: , Rfl: FIBER ADULT GUMMIES OR, Indications: 3 gummies po daily in morning, Disp: , Rfl: furosemide (LASIX) 40 MG tablet, Take 1 Tablet (40 mg) by mouth daily., Disp: , Rfl: GLUCAGON EMERGENCY 1 MG Kit, SMARTSI Milligram(s) SUB-Q Once PRN, Disp: , Rfl: insulin glargine (TOUJEO SOLOSTAR) 300 UNIT/ML injection, Inject 51 Units subcutaneously every evening. Note increase in dose Indications: Insulin- Dependent Diabetes, Disp: 15 mL, Rfl: 11 lancets (MARTIN MICROLET LANCETS), Use as directed. Pharmacy dispense brand based on insurance., Disp: 50 Each, Rfl: prn levothyroxine (SYNTHROID) 150 MCG tablet, Take 1 tablet daily for 3 days of the week. Take at leastone hour before or two hours after meal., Disp: 36 Tablet, Rfl: 3 levothyroxine (SYNTHROID) 175 MCG tablet, Take 1 tablet day for 4 days of the week. Take at least one hour before or two hours after meal., Disp: 48 Tablet, Rfl: 3 lisinopril (AKA ZESTRIL) 10 MG tablet, Take 1 Tab by mouth daily. Indications: High blood pressure & Diabetes, Disp: 30 Tab, Rfl: 11 methocarbamol (ROBAXIN) 500 MG tablet, Take 1 Tablet (500 mg) by mouth three times a day as needed., Disp: , Rfl: metroNIDAZOLE (METROCREAM) 0.75 % cream, Apply topically two times a day., Disp: , Rfl: NOVOLOG 100 UNIT/ML injection (vial), Inject 125 Units subcutaneously daily., Disp: , Rfl: omeprazole (AKA PRILOSEC) 20 MG capsule, Take 1 tablet by mouth two times a day before meals for 13days Indications: H-pylori infect, Disp: 26 Cap, Rfl: 0 ondansetron (AKA ZOFRAN) 4 MG disintegrating tablet, Take 1 Tablet (4 mg) by mouth every 8 hours asneeded for Nausea., Disp: , Rfl: oxybutynin (DITROPANXL) 10 MG 24 hour release tablet, Take by mouth., Disp: , Rfl: oxyCODONE (AKA ROXICODONE) 5 MG immediate release tablet, Take 1-2 Tabs by mouth every 4 hours as needed for Pain. Indications: Acute Pain, Disp: 10 Tab, Rfl: 0 pregabalin (LYRICA) 300 MG capsule, Take 1 Capsule (300 mg) by mouth two times a day., Disp: , Rfl: rizatriptan (MAXALT-MANAGER SCHEDULING) 10 MG disintegrating tablet, Take by mouth., Disp: , Rfl: tolterodine (AKA DETROL) 2 MG tablet, Take 1 Tab by mouth two times a day., Disp: 14 Tab, Rfl: 0 topiramate (TOPAMAX) 100 MG tablet, Take 1 Tablet (100 mg) by mouth daily., Disp: , Rfl: triamcinolone acetonide (KENALOG) 0.1 % paste, apply topically to affected dental area three times a day; use after food and/or drink and/or oral hygiene*, Disp: , Rfl: valACYclovir (VALTREX) 500 MG tablet, Take 1 Tablet (500 mg) by mouth daily as needed., Disp: , Rfl: PHYSICAL EXAM: BP (!) 161/51 (BP Location: Left Arm, BP Cuff Size: Regular) Pulse 68 Wt 262 lb (118.8 kg) BMI 36.54 kg/m?? Gen. Appearance: not in acute distress Eyes: anicteric sclerae, normal lids and conjunctivae Heart: normal S1-S2, no murmurs Lungs: clear to auscultation Extremities: +2 edema. No cyanosis or clubbing Psych: appropriate mood and affect with insight into her medical conditions Skin: normal texture and turgor LABS:Reviewed with patient, compared to previous Lab Results Component Value Date/Time SODIUM 140 02/18/2023 09:04 AM K 4.9 02/18/2023 09:04 AM CHLORIDE 105 02/18/2023 09:04 AM BUN 21 02/18/2023 09:04 AM CREATININE 1.82 (H) 02/18/2023 09:04 AM GFR 32 (L) 02/18/2023 09:04 AM GLUCOSE 119 (H) 02/18/2023 09:04 AM CA 9.2 02/18/2023 09:04 AM ANIONGAP 10 02/18/2023 09:04 AM MG 1.8 04/28/2015 07:36 AM PHOS 2.8 04/28/2015 07:36 AM ALB 3.9 02/18/2023 09:04 AM Lab Results Component Value Date/Time CREATININE 1.82 (H) 02/18/2023 09:04 AM CREATININE 1.65 (H) 12/22/2022 10:11 PM CREATININE 1.31 (H) 01/06/2016 12:19 PM CREATININE 1.06 (H) 04/30/2015 08:14 AM Lab Results Component Value Date/Time WBC 5.0 02/18/2023 09:04 AM RBC 3.84 (L) 02/18/2023 09:04 AM HGB 11.5 (L) 02/18/2023 09:04 AM HCT 35.5 02/18/2023 09:04 AM MCV 92.4 02/18/2023 09:04 AM MCH 29.9 02/18/2023 09:04 AM MCHC 32.4 02/18/2023 09:04 AM PLTS 216 02/18/2023 09:04 AM RDW 12.9 02/18/2023 09:04 AM Last UA w/microscopic results: Lab Results Component Value Date/Time UCOL Yellow 04/27/2015 06:52 PM URAP Clear 04/27/2015 06:52 PM SPGU 1.018 04/27/2015 06:52 PM PHUR 5.0 04/27/2015 06:52 PM PROU Negative 04/27/2015 06:52 PM GLUUC 50 (A) 04/27/2015 06:52 PM KETU Trace (A) 04/27/2015 06:52 PM UBGQ <2.0 04/27/2015 06:52 PM BILIU Negative 04/27/2015 06:52 PM BLDU Negative 04/27/2015 06:52 PM NITRU Negative 04/27/2015 06:52 PM LEUKU Small (A) 04/27/2015 06:52 PM URBCS 2 04/27/2015 06:52 PM UWBC 9 (H) 04/27/2015 06:52 PM UEPI Occ 04/27/2015 06:52 PM Hemoglobin A1C Date Value Ref Range Status 05/26/2023 7.4 (H) <=5.6 % Final 02/07/2023 7.7 (H) <=5.6 % Final Albumin/Creatinine Ratio, Urine, Random Date Value Ref Range Status 02/07/2023 5 <30 mg/g Final No results found for: TPCREAT No results found for: IPTH No results found for: VTD25 Echo 01/2022 1. Normal left ventricular size, normal wall thickness, hyperdynamic global systolic function, calculated EF of 77 %. 2. Right ventricular cavity size is normal, global systolic RV function is normal. 3. No pericardial effusion. 4. Moderately increased estimated pulmonary pressures by tricuspid regurgitation velocity and rightatrial pressure (57 mmHg plus RAP). 5. No significant valve disease detected. ASSESSMENT/ PLAN: 1. CKD 3B w no albuminuria, recent baseline creatinine 1.6-1.8 in 2022, noted progression compared to 2017 to 2021 where creatinine was 1.3-1.7. Etiology of CKD is likely multifactorial: Decreased renal mass, longstanding hypertension, recurrent AKIs (notedly 2016 then 01/2022 as above). Can not rule out diabetic kidney disease, though less likely in the absence of albuminuria. Plan: Obtain records from patient's primary care physician, for further lab trends. Check renal panel, urinalysis microscopy, urine albumin/creatinine, urine protein/creatinine, 25 hydroxy vitamin-D, PTH Discussed the importance of blood pressure control in CKD Continue to avoid NSAIDs and dietary supplements Discussed benefits of MICHELA inhibitors in proteinuric CKD, absence of data in CKD without proteinuria. MICHELA inhibitors are antifibrotic, we will keep current dose as she is tolerating well. Obtain all records from her primary care physician for the past year, for more data on creatinine/GFR 2. Hypertension, blood pressure is uncontrolled in the office today and yesterday at another office. However, patient reports controlled readings at home. 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 Uncontrolled blood pressure may be in the setting of recent significant weight gain . Noted estradiol cream twice a week, but low-dose, and patient is using infrequently. Unlikely to contribute to current hypertension Currently on lisinopril 10 mg daily and furosemide 40 mg daily Plan: Exercise and weight loss as feasible (see below) Check blood pressure at home, record in message Modern Message in 2-3 weeks (details in patient instructions below). May benefit from addition of a 3rd medication, e.g. carvedilol. Avoiding vasodilators (calcium channel aga, hydralazine) in leg edema for now. May consider low-dose amlodipine (usually well tolerated) if does tolerate carvedilol (history of depression). If there continues to be a discrepancy between home readings and office readings, would benefit from 24 hour ambulatory blood pressure monitor: Progressive CKD. D/w pt, agreeable 3. Anemia, borderline low iron stores when last checked 6 months ago. Can not rule out anemia of CKD Plan: Recheck iron studies, check B12 and folate No indication for DILMA's, continue to monitor 4. Obesity, weight gain. Is on Topamax 100 mg daily, previously on 200 qd. Not a candidate for GLP 1 agonist. Did not tolerate phentermine (also not recommended in uncontrolled hypertension) Plan: Discuss with primary care physician Dr. Nikita Hightower MD adjusting dose for weight loss. Alternatively, consider seeing endocrinology MD for weight loss 5. Bilateral leg edema, likely venous insufficiency and CKD. Echo reviewed as above Plan: Consider ultrasound for venous competency, possibly vascular referral. Keep furosemide 40 mg daily for now Check serum albumin, urine protein/creatinine Keep low-salt diet 6. Urge incontinence, on med Rx. Reluctant to adjust diuretics because of that Plan: Refer to Urology, ordered Thank you for allowing me to participate in the care of this pt. I will follow her closely with you. she will return to the clinic in 4-6 weeks, with renal panel Nancy Stock MD Nephrology Time spent > 55 minutes for review of records, labs and imaging in [facility]; and discussion face-to face with patient as above with >50% of the time spent on counseling and coordination of care Patient Instructions Please obtain records from Nikita Hightower MD at [facility] in [place], [place]. Check blood pressure at home daily or every other day, in the evening, after 5 minutes of rest; andrecord it. Call us if blood pressure is consistently above 130/80 or below 100/60 (more than 3 readings/ days in a row outside the range) Please message me your readings in 2-3 weeks Blood and urine test today - Will contact you with results and recommendations Please discuss weight loss with Dr Nikita Hightower MD I have referred you to Urology for urge incontinence See me in 4-6 weeks , video visit ok Orders Placed This Encounter Renal Function Panel UA with Microscopic: Clean Catch TP/Crea Ratio, Urine Albumin/Creatinine Ratio,Random Urine Vitamin D 25-Hydroxy, Total Intact PTH Ferritin Complete Blood Count-No Diff Iron Profile (Iron,TIBC,%Sat.(Calc)) Vitamin B12 Only Folate Only (4Hr Fast Recommended) Urology Consult-Adults documented in this encounter Plan of Treatment Upcoming Encounters Date Type Department Care Team (Late st Contact Info) Description 07/20/2023 9:30 AM CDT Appointment [facility] [facility] [address] [place] [id number] Kary Adhikari MD [address] [place], [place] [phone] 07/28/2023 2:15 PM CDT Appointment [facility] 401 Endocrinology Clinic [address] [place] [address] Logan Parra PA-C [address] [place] [address] 08/09/2023 10:[address] [facility] Nephrology [address] [place] [phone] Nancy Stock MD [address], [place] [phone] 09/09/2023 9:00 AM CDT Appointment [facility] 435 UroGynecology [address] [place] [address] Annelise Hayes MD [address] [place], [place] [phone] Scheduled Referrals Name Type Priority Associated Diagnoses Orde r Schedule Urology Consult-Adults Referral Routine Urge incontinence of urine Ordered: 06/23/2023 documented as of this encounter Results * (ABNORMAL) Albumin/Creatinine Ratio,Random Urine (06/23/2023 12:28 PM CDT) Albumin/Creati nine Ratio, Urine, Random 75(H) <30 mg/g 06/23/2023 7:38 PM CDT [facility] Albumin, Urine, Random 44.2 mg/L 06/23/2023 7:38 PM CDT [facility] Creatinine, Urine, Random 59 >20 mg/dL mg/dL 06/23/2023 7:38 PM CDT [facility] Urine Non-blood Collection / Unknown 06/23/2023 12:28 PM CDT 06/23/2023 12:28 PM CDT Nancy Stock MD LAB_1 Performing Organization Address [facility] Co de Phone Number [facility] [address] * TP/Crea Ratio, Urine (06/23/2023 12:28 PM CDT) TP/Creat Ratio, Urine Random 0.19 0.00 - 0.20 06/23/2023 7:38 PM CDT [facility] Total Protein, Urine, Random 11 0 - 14 mg/dL 06/23/2023 7:38 PM CDT [facility] Creatinine, Urine, Random 59 >20 mg/dL mg/dL 06/23/2023 7:38 PM CDT [facility] Urine Non-blood Collection / Unknown 06/23/2023 12:28 PM CDT 06/23/2023 12:28 PM CDT Narrative [facility] - 06/23/2023 7:38 PM CDT Low urine creatinine values coupled with low urine protein values can artifactually increase the urine protein/creatinine results. Correlate results of ratio with creatinine results. Nancy Stock MD LAB_1 Performing Organization Address [facility] de Phone Number [facility] [address] * (ABNORMAL) UA with Microscopic: Clean Catch (06/23/2023 12:28 PM CDT) Urine Color Yellow 06/23/2023 12:33 PM CDT [facility] Urine Clarity Clear Clear 06/23/2023 12:33 PM CDT [facility] Specific [place], Urine 1.010 1.005 - 1.030 06/23/2023 12:33 PM CDT [facility] PH Urine 6.5 5.0 - 8.0 06/23/2023 12:33 PM CDT [facility] Protein, Urine Qual (mg/dL) Negative Neg/Trace 06/23/2023 12:33 PM CDT [facility] Glucose Urine Qual (mg/dL) 250(A) Negative 06/23/2023 12:33 PM CDT [facility] Ketones, Urine (mg/dL) Negative Negative 06/23/2023 12:33 PM CDT [facility] Urobilinogen, Urine (EU/dL) 0.2 <2.0 06/23/2023 12:33 PM CDT [facility] Bilirubin Urine Negative Negative 06/23/2023 12:33 PM CDT [facility] Blood, Urine Negative Neg/Trace 06/23/2023 12:33 PM CDT [facility] Nitrite Urine Negative Negative 06/23/2023 12:33 PM CDT [facility] Leukocyte Est. Negative Negative 06/23/2023 12:33 PM CDT [facility] Red Blood Cells 0-3 0 - 3 /HPF 06/23/2023 12:33 PM CDT [facility] White Blood Cells 0-5 0 - 5 /HPF 06/23/2023 12:33 PM CDT [facility] Bacteria Occasional(A) None Seen /HPF 06/23/2023 12:33 PM CDT [facility] Squamous Epithelial Cells Occasional None Seen, Occasional, Few /HPF 06/23/2023 12:33 PM CDT [facility] Urine Source Clean Catch 06/23/2023 12:33 PM CDT [facility] Urine URINE SPECIMEN COLLECTION, CLEAN CATCH / Unknown Non-blood Collection / Unknown 06/23/2023 12:28 PM CDT 06/23/2023 12:28 PM CDT Nancy Stock MD LAB_1 [facility] [address] [place] [address], [facility] * Folate Only (4Hr Fast Recommended) (06/23/2023 12:12 PM CDT) Folate 17.6 >=7.0 ng/mL 06/24/2023 12:54 PM CDT [facility] Blood Venipuncture / Unknown 06/23/2023 12:12 PM CDT 06/23/2023 12:17 PM CDT Nancy Stock MD LAB_1 Performing Organization Address [facility] Co de Phone Number [facility] [address] * (ABNORMAL) Vitamin B12 Only (06/23/2023 12:12 PM CDT) Vitamin B12 1,293(H) 213 - 816 pg/mL 06/23/2023 9:02 PM CDT [facility] Blood Venipuncture / Unknown 06/23/2023 12:12 PM CDT 06/23/2023 12:17 PM CDT Nancy Stock MD LAB_1 Performing Organization Address [facility] Phone Number [facility] [address] * Iron Profile (Iron,TIBC,%Sat.(Calc)) (06/23/2023 12:12 PM CDT) Iron 51 50 - 170 mcg/dL 06/23/2023 6:45 PM CDT [facility] Transferrin 227 180 - 382 mg/dL 06/23/2023 6:45 PM CDT [facility] TIBC, Calculated 284 240 - 450 mcg/dL 06/23/2023 6:45 PM CDT [facility] % Saturation, Calculated 18 10 - 50 % 06/23/2023 6:45 PM CDT [facility] Blood Venipuncture / Unknown 06/23/2023 12:12 PM CDT 06/23/2023 12:17 PM CDT Nancy Stock MD LAB_1 Performing Organization Address [facility] Co de Phone Number [facility] [address] * (ABNORMAL) Complete Blood Count-No Diff (06/23/2023 12:12 PM CDT) WBC 6.9 3.5 - 10.5 x10(9)/L 06/23/2023 12:26 PM CDT [facility] RBC 3.49(L) 3.90 - 5.03 x10(12)/L 06/23/2023 12:26 PM CDT [facility] Hemoglobin 10.4(L) 12.0 - 15.5 g/dL 06/23/2023 12:26 PM CDT [facility] HCT 31.6(L) 34.9 - 44.5 % 06/23/2023 12:26 PM CDT [facility] MCV 90.5 80.0 - 100.0 fL 06/23/2023 12:26 PM CDT [facility] MCH 29.8 27.6 - 33.3 pg 06/23/2023 12:26 PM CDT [facility] MCHC 32.9 31.5 - 35.2 g/dL 06/23/2023 12:26 PM CDT [facility] RDW 12.2 11.9 - 15.5 % 06/23/2023 12:26 PM CDT [facility] Platelets 270 150 - 450 x10(9)/L 06/23/2023 12:26 PM CDT [facility] Blood Venipuncture / Unknown 06/23/2023 12:12 PM CDT 06/23/2023 12:17 PM CDT Nancy Stock MD LAB_1 [facility] [address] [place] [address], [facility] * Ferritin (06/23/2023 12:12 PM CDT) Ferritin 64 9 - 204 ng/mL 06/23/2023 7:04 PM CDT [facility] Blood Venipuncture / Unknown 06/23/2023 12:12 PM CDT 06/23/2023 12:17 PM CDT Nancy Stokc MD LAB_1 Performing Organization Address [facility] Co de Phone Number [facility] [address] * Intact PTH (06/23/2023 12:12 PM CDT) Intact PTH 90 10 - 100 pg/mL 06/23/2023 5:[address] [facility] Blood Venipuncture / Unknown 06/23/2023 12:12 PM CDT 06/23/2023 12:17 PM CDT Nancy Stock MD LAB_1 Performing Organization Address [facility] Co de Phone Number [address] * (ABNORMAL) Vitamin D 25-Hydroxy, Total (06/23/2023 12:12 PM CDT) Vitamin D, 25-OH, Total 24(L) 30 - 80 ng/mL 06/23/2023 9:03 PM CDT [facility] Blood Venipuncture / Unknown 06/23/2023 12:12 PM CDT 06/23/2023 12:17 PM CDT Narrative [facility] - 06/23/2023 9:03 PM CDT Expected values Deficiency: <20 ng/mL Insufficiency: 20-29 ng/mL Optimum: 30-80 ng/mL Possible toxicity: >80 ng/mL Nancy Stock MD LAB_1 Performing Organization Address [facility]/ZIP Co de Phone Number [facility] [address] * (ABNORMAL) Renal Function Panel (06/23/2023 12:12 PM CDT) Sodium 138 136 - 145 mmol/L 06/23/2023 6:45 PM CDT [facility] Potassium 5.1 3.5 - 5.1 mmol/L 06/23/2023 6:45 PM CDT [facility] Chloride 106 98 - 109 mmol/L 06/23/2023 6:45 PM T [facility] CO2 24 20 - 29 mmol/L 06/23/2023 6:45 PM T [facility] Anion Gap 8 7 - 16 mmol/L 06/23/2023 6:45 PM T [facility] Calcium 9.6 8.4 - 10.4 mg/dL 06/23/2023 6:45 PM T [facility] BUN 26 7 - 26 mg/dL 06/23/2023 6:45 PM T [facility] Creatinine 1.70(H) 0.55 - 1.02 mg/dL 06/23/2023 6:45 PM T [facility] Albumin 3.8 3.5 - 5.0 g/dL 06/23/2023 6:45 PM T [facility] Phosphorus 3.0 2.3 - 4.7 mg/dL 06/23/2023 6:45 PM T [facility] Glucose 150(H) 70 - 100 mg/dL 06/23/2023 6:45 PM [facility] Comment:The given reference range is for the fasting state. Non-fasting reference range for glucose is 70 - 180 mg/dL. GFR, Estimated 35(L) >60 mL/min/1. 73m2 06/23/2023 6:45 PM T [facility] Hours Fasting 0.1 8 - 12 Hours 06/23/2023 6:45 PM [facility] Blood Venipuncture / Unknown 06/23/2023 12:12 PM CDT 06/23/2023 12:17 PM CDT Nancy Stock MD LAB_1 [facility] [address] documented in this encounter Visit Diagnoses Diagnosis Stage 3b chronic kidney disease (HRC)- Primary Essential hypertension (HRC) Unspecified essential hypertension Anemia, unspecified type Urge incontinence of urine Urge incontinence Bilateral leg edema Edema Obesity (BMI 30-39.9) (HRC) Obesity, unspecified H/O unilateral nephrectomy Acquired absence of kidney documented in this encounter Additional Health Concerns Infection Onset Date Last Indicated Resolved Time MRSA Comment:Beronica 12-29-14, 01/06/16 12/30/2014 12/30/2014 documented as of this encounter Care Teams Knowledge Analyst Relationship Specialty Start Date End Date Nikita Hightower MD [address] [place] [address] PCP - General Family Practice 06/23/23 documented as of this encounter
--- OUTSIDE RECORDS SUMMARY | 2023-07-05 13:26 | XMS_ITS | Encounter Summary ---
Author Name Unknown Organization [facility] Address [address] [place] [address] Care Team Providers Care Armature Coil Winder Name Role Phone No Primary/Referring, Phy Primary Care Provider Unavailable Reason for Visit * Reason Comments DIABETES EDUCATION Insulin Pump Follow Up Encounter Details Date Type Department Care Team (Late st Contact Info) Description 04/19/2023 2:15 PM ROOM SERVER Telemedicine [facility] Diabetes Education [address] [address] Radha Pope RDN, LD, [address] [id number] Type 1 diabetes mellitus with diabetic neuropathy, [...] Instructions* Radha Pope RDN, SULAIMAN, CDCES - 04/19/2023 2:15 PM ROOM SERVER Images from the original note were not [...] eat 1/2 large fruit = 15g carb SERVER documented in this encounter Progress Notes * Radha Pope RDN, SULAIMAN, CDCES - 04/19/2023 2:15 PM CST Subjective: What is the most important concern you want to discuss today? I have had only 2- 3 lows over [place] since we talked last. Hypo treatment: juice [...] which is much improved. Lows occurred for [place] during the day which may have been related to waiting extra long without eating. -Hypoglycemia sx are not always felt under 70mg/dl. She has a lot of fears of hypoglycemia which isunderstandable given her history of lows. -Pt is open to changing her Low Glucose alert from 90mg/dl to 85mg/dl. Adjusted during visit today. -t:Learnerator not updated. Looked at 03/28-04/09/23 data. Today, based on [employer] website, under Reports and CGM Hourly, Time [...] be found in the diabetes education smartform. SERVER documented in this encounter Plan of Treatment Upcoming Encounters Date Type Department Care Team (Late st Contact Info) Description 07/20/2023 9:30 AM CDT Appointment [facility]ty [facility] [address] [facility] [place] [address]. SHARAN Fry [address] Kary Adhikari MD [address] [facility] [place] [id number] 07/28/2023 2:15 PM CDT Appoint[facility] 401 Endocrinology Clinic [address] [place] [address] Logan Parar PA-C [address] [place] [address] 08/09/2023 10:30 AM CDT Telemedicine [facility] Nephrology [address] [place] [address] Nancy Stock MD [address] [place], [place] [id number] 09/09/2023 9:00 AM CDT Appointment [facility]ty [facility] 435 UroGynecology [address] [place] [address] Annelise Hayes MD [address] [place], [place] [id number] documented as of this encounter Visit Diagnoses Diagnosis Type 1 diabetes mellitus with diabetic neuropathy, unspecified (HRC)- Primary documented in this encounter Additional Health Concerns Infection Onset Date Last Indicated Resolved Time MRSA Comment:Beronica 10-4-15, 01/06/16 12/30/2014 12/30/2014 documented as of this encounter Care Teams Armature Coil Winder Relationship Specialty Start Date End Date No Primary/Referring, Phy PCP - General 11/17/12 4 documented as of this encounter
--- OUTSIDE RECORDS SUMMARY | 2023-07-05 13:27 | XMS_ITS | Encounter Summary ---
Author Name Unknown Organization [place] Address [address] [place] [address]. [place] [address] Care Team Providers Care Risk Control Manager Name Role Phone StuartJocelyn desouza Bran YANEZ Unavailable [phone] Nikita Gamble MD Primary Care Provider Naveen Casiano MD Unavailable [phone] Mikki Blevins MD Unavailable [phone] Mikki Blevins MD Unavailable [phone] Mindi Llanes PA-C Unavailable [phone] Encounter Details Date Type Department Care Team (Late st Contact Info) Description 09/16/2021 MyC Medical Advice [facility] Specialty [address] [address] Mikki Blevins MD [facility] [place] [address] Social History Tobacco Use Types Packs/Day Years Used Date Smoking Tobacco: Never Smokeless Tobacco: Never Alcohol Use Standard Drinks/Week Comments Yes 0 (1 standard drink = 0.6 oz pur e alcohol) rare PHQ-2 Answer Date Recorded PHQ-2 Score 0 02/26/2020 Sex and Gender Information Value Date Recorded Sex Assigned at Female 03/04/2020 12:33 PM HEAVY DUTY PRESS OPERATOR Gender Identity Female 03/04/2020 12:33 PM HEAVY DUTY PRESS OPERATOR Sexual Orientation Straight 03/04/2020 12 :33 PM HEAVY DUTY PRESS OPERATOR documented as of this encounter Plan of Treatment Not on file documented as of this encounter Visit Diagnoses Not on filedocumented in this encounter Additional Health Concerns Assessment Noted Time PHQ-9 Depression Total Score: 0 02/26/20 20 1:30 PM HEAVY DUTY PRESS OPERATOR documented as of this encounter Care Teams Risk Control Manager Relationship Specialty Start Date End Date Nikita Gamble MD [address] [place] [address] PCP - General Family Medicine 05/26/[address] [place] [address] Pathology Secretary Dietitian, Registered 05/25/18 [place] [address] [place] [address] Assigned PCP 11/16/20 Mikki Blevins MD [address] [place] [address] Endocrinology, Diabetes, and Metabolism 05/07/21 [place] [address] Assigned Endocrinology Provider 08/02/21 01/28/23 Mindi Llanes PA-C [address] [facility] [place] [address] Assigned Surgical Provider 09/26/21 documented as of this encounter
--- OUTSIDE RECORDS SUMMARY | 2023-07-05 13:27 | XMS_ITS | Encounter Summary ---
Author Name Unknown Organization [place] Address [address] [place] [address]. [place] [address] Care Team Providers Care Web Solutions Architect Name Role Phone Chay Alvarezharrison Monroe APRN LOCAL GOVERNMENT LEGISLATOR Unavailable Goran Lloyd MD Primary Care Provider Jocelyn Davidson RD Unavailable [phone] Tamar Murphy APRN LOCAL GOVERNMENT LEGISLATOR Unavailable Unavail able Nikita Gamble MD Primary Care Provider Naveen Casiano MD Unavailable [phone] Harlan Lin MD Unavailable Milagro vailable Mikki Blevins MD Unavailable [phone] Mkiki Blevins MD Unavailable [phone] Mindi Llanes PA-C Unavailable [phone] Encounter Details Date Type Department Care Team (Late st Contact Info) Description 06/29/2018 MyC Medical Advice [address] [address] Mimi Cyr CMA Social History Tobacco Use Types Packs/Day Years Used Date Smoking Tobacco: Never Smokeless Tobacco: Never Alcohol Use Standard Drinks/Week Comments Yes 0 (1 standard drink = 0.6 oz pur e alcohol) rare Sex and Gender Information Value Date Recorded Sex Assigned at Female 03/04/2020 12:33 PM HOME APPLIANCE WASHING MACHINE MECHANIC Gender Identity Female 03/04/2020 12:33 PM HOME APPLIANCE WASHING MACHINE MECHANIC Sexual Orientation Straight 03/04/2020 12 :33 PM HOME APPLIANCE WASHING MACHINE MECHANIC documented as of this encounter Plan of Treatment Not on file documented as of this encounter Visit Diagnoses Not on filedocumented in this encounter Additional Health Concerns Infection Onset Date Last Indicated Resolved Time Rule Out COVID-19 02/26/2020 02/26/2020 02/27/2020 4:32 PM HOME APPLIANCE WASHING MACHINE MECHANIC documented as of this encounter Care Teams Web Solutions Architect Relationship Specialty [place] [address] [place] [address] PCP - General Family Practice 12/29/17 05/21/20 Nikita Gamble MD PCP - General Family Medicine 05/26/20 Annette Alvarez APRN LOCAL GOVERNMENT LEGISLATOR [address] [place] [address] Nurse Practitioner Clinical Nurse Specialist 03/22/17 10/21/[address] [place] [address] Tooling Inspector Dietitian, Registered 05/25/18 Tamar Murphy APRN LOCAL GOVERNMENT LEGISLATOR Assigned PCP 02/08/20 11/15/20 [place] [address] [place] [address] Assigned PCP 11/16/20 Harlan Lin MD NO INFO AVAILABLE Assigned Endocrinology Provider 12/07/20 08/01/21 Mikki Blevins MD [address] [place] [address] Endocrinology, Diabetes, and Metabolism 05/07/21 [place] [address] Assigned Endocrinology Provider 08/02/21 01/28/23 Mindi Llanes PA-C [address] [place] [address] Assigned Surgical Provider 09/26/21 documented as of this encounter
--- OUTSIDE RECORDS SUMMARY | 2023-07-05 13:27 | XMS_ITS | Encounter Summary ---
Author Name Unknown Organization [place] Address [address] [place] [address]. [place] [address] Care Team Providers Care Director Of Midwifery/Staff Midwife Name Role Phone Jocelyn Davidson RD Unavailable [phone] Nikita Gamble MD Primary Care Provider [phone] Naveen Casiano MD Unavailable [phone] Mikki Blevins MD Unavailable [phone] Mikki Blevins MD Unavailable [phone] Mindi Llanes PA-C Unavailable [phone] Encounter Details Date Type Department Care Team (Late st Contact Info) Description 09/18/2021 [facility] [place] [facility] Surgical [facility] [address] [address] Liberty Gilliam MA Social History Tobacco Use Types Packs/Day Years Used Date Smoking Tobacco: Never Smokeless Tobacco: Never Alcohol Use Standard Drinks/Week Comments Yes 0 (1 standard drink = 0.6 oz pur e alcohol) rare PHQ-2 Answer Date Recorded PHQ-2 Score 0 02/26/2020 Sex and Gender Information Value Date Recorded Sex Assigned at Female 03/04/2020 12:33 PM LPN RN HOSPICE Gender Identity Female 03/04/2020 12:33 PM LPN RN HOSPICE Sexual Orientation Straight 03/04/2020 12 :33 PM LPN RN HOSPICE documented as of this encounter Plan of Treatment Not on file documented as of this encounter Visit Diagnoses Not on filedocumented in this encounter Additional Health Concerns Assessment Noted Time PHQ-9 Depression Total Score: 0 02/26/20 20 1:30 PM LPN RN HOSPICE documented as of this encounter Care Teams Director Of Midwifery/Staff Midwife Relationship Specialty Start Date End Date Nikita Gamble MD [place] [address] [place] [address] PCP - General Family Medicine 05/26/20 Jocelyn Davidson, RENATA [place] [address] [place] [address] Job Developer Dietitian, Registered 05/25/18 [place] [address] [place] [address] Assigned PCP 11/16/20 Mikki Blevins MD [address] [place] [address] Endocrinology, Diabetes, and Metabolism 05/07/21 Mikki [place]levins [place] [address] Assigned Endocrinology Provider 08/02/21 01/28/23 Mindi Llanes PA-C [address] [facility] [address] [place] [address] Assigned Surgical Provider 09/26/21 documented as of this encounter
--- OUTSIDE RECORDS SUMMARY | 2023-07-05 13:27 | XMS_ITS | Encounter Summary ---
Author Name Unknown Organization [place] Address [address] [place] [address]. [place] [address] Care Team Providers Care Small Appliance Assembly Supervisor Name Role Phone Annette Alvarez Mabel ALVAREZ BPM ARCHITECT Unavailable [phone] Goran Lloyd MD Primary Care Provider Jocelyn Davidson RD Unavailable [phone] Tamar Murphy APRN BPM ARCHITECT Unavailable Unavail able Nikita Gamble MD Primary Care Provider Naveen Casiano MD Unavailable [phone] Harlan Lin MD Unavailable Milagro vailable Mikki Blevins MD Unavailable [phone] Mikki Blevins MD Unavailable [phone] Mindi Llanes PA-C Unavailable [phone] Encounter Details Date Type Department Care Team (Late st Contact Info) Description 09/01/2018 [facility] Medical Advice [address] [address] Jocelyn Davidson, RENATA [address] [place] [address] Social History Tobacco Use Types Packs/Day Years Used Date Smoking Tobacco: Never Smokeless Tobacco: Never Alcohol Use Standard Drinks/Week Comments Yes 0 (1 standard drink = 0.6 oz pur e alcohol) rare Sex and Gender Information Value Date Recorded Sex Assigned at Female 03/04/2020 12:33 PM DIRECT MARKETING MANAGER Gender Identity Female 03/04/2020 12:33 PM DIRECT MARKETING MANAGER Sexual Orientation Straight 03/04/2020 12 :33 PM DIRECT MARKETING MANAGER documented as of this encounter Plan of Treatment Not on file documented as of this encounter Visit Diagnoses Not on filedocumented in this encounter Additional Health Concerns Infection Onset Date Last Indicated Resolved Time Rule Out COVID-19 02/26/2020 02/26/2020 02/27/2020 4:32 PM DIRECT MARKETING MANAGER documented as of this encounter Care Teams Small Appliance Assembly Supervisor Relationship Specialty [place] [address] [place] [address] PCP - General Family Practice 12/29/17 05/21/20 Nikita Gamble MD PCP - General Family Medicine 05/26/20 Annette Alvarez APRN BPM ARCHITECT [address] [place], [place] [id number] Nurse Practitioner Clinical Nurse Specialist 03/22/17 10/21/[address] [place] [address] Green Chain Worker Dietitian, Registered 05/25/18 Tamar Murphy APRN BPM ARCHITECT Assigned PCP 02/08/20 11/15/20 [place] [address] [place], [place] [address] Assigned PCP 11/16/20 Harlan Lin MD NO INFO AVAILABLE Assigned Endocrinology Provider 12/07/20 08/01/21 Mikki Blevins MD [address] [place] [address] Endocrinology, Diabetes, and Metabolism 05/07/21 [place] [address] Assigned Endocrinology Provider 08/02/21 01/28/23 Mindi Llanes PA-C [address] [place] [address] Assigned Surgical Provider 09/26/21 documented as of this encounter
--- OUTSIDE RECORDS SUMMARY | 2023-07-05 13:27 | XMS_ITS | Encounter Summary ---
Author Name Unknown Organization [place] Address [address] [place] [address]. [place] [address] Care Team Providers Care Non Clinical Advisor Name Role Phone Jocelyn Davidson RD Unavailable [phone] Nikita Gamble MD Primary Care Provider Naveen Casiano MD Unavailable [phone] Mikki Blevins MD Unavailable [phone] Mikki Blevins MD Unavailable [phone] Mindi Llanes PA-C Unavailable [phone] Encounter Details Date Type Department Care Team (Late st Contact Info) Description 09/21/2021 MyC Medical Advice [facility] Social History Tobacco Use Types Packs/Day Years Used Date Smoking Tobacco: Never Smokeless Tobacco: Never Alcohol Use Standard Drinks/Week Comments Yes 0 (1 standard drink = 0.6 oz pur e alcohol) rare PHQ-2 Answer Date Recorded PHQ-2 Score 0 02/26/2020 Sex and Gender Information Value Date Recorded Sex Assigned at Female 03/04/2020 12:33 PM 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 DIRECTOR Gender Identity Female 03/04/2020 12:33 PM 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 DIRECTOR Sexual Orientation Straight 03/04/2020 12 :33 PM 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 DIRECTOR documented as of this encounter Plan of Treatment Not on file documented as of this encounter Visit Diagnoses Not on filedocumented in this encounter Additional Health Concerns Assessment Noted Time PHQ-9 Depression Total Score: 0 02/26/20 20 1:30 PM 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 DIRECTOR documented as of this encounter Care Teams Non Clinical Advisor Relationship Specialty Start Date End Date Nikita Gamble MD [address] [place] [address] PCP - General Family Medicine 05/26/20 Jocelyn Davidson, RENATA [address] [place] [address] Volunteer Manager Dietitian, Registered 05/25/18 [place] [address] [place] [address] Assigned PCP 11/16/20 Mikki Blevins MD [address] [place] [address] Endocrinology, Diabetes, and Metabolism 05/07/21 [place] [address] Assigned Endocrinology Provider 08/02/21 01/28/23 Mindi Llanes PA-C [address] [id number] [address] Assigned Surgical Provider 09/26/21 documented as of this encounter
--- OUTSIDE RECORDS SUMMARY | 2023-07-05 13:27 | XMS_ITS | Encounter Summary ---
Author Name Unknown Organization [place] Address [address] [place] [address]. [place] [address] Care Team Providers Care Pharmaceutical Operator Name Role Phone Annette Alvarez Mabel ALVAREZ ACTUARIAL MANAGER Unavailable Goran Lloyd MD Primary Care Provider [phone] Unavailable [phone] Tamar Murphy APRN ACTUARIAL MANAGER Unavailable Unavail able Nikita Gamble MD Primary Care Provider Naveen Casiano MD Unavailable [phone] Harlan Lin MD Unavailable Milagro vailable Mikki Blevins MD Unavailable [phone] Mikki Blevins MD Unavailable [phone] Mindi Llanes PA-C Unavailable [phone] Encounter Details Date Type Department Care Team (Late st Contact Info) Description 05/26/2018 [facility] [place] [address] [address] Jocelyn Davidson, RENATA [address] [place] [address] Social History Tobacco Use Types Packs/Day Years Used Date Smoking Tobacco: Never Smokeless Tobacco: Never Alcohol Use Standard Drinks/Week Comments Yes 0 (1 standard drink = 0.6 oz pur e alcohol) rare Sex and Gender Information Value Date Recorded Sex Assigned at Female 03/04/2020 12:33 PM BRICK HANDLER Gender Identity Female 03/04/2020 12:33 PM BRICK HANDLER Sexual Orientation Straight 03/04/2020 12 :33 PM BRICK HANDLER documented as of this encounter Plan of Treatment Not on file documented as of this encounter Visit Diagnoses Not on filedocumented in this encounter Additional Health Concerns Infection Onset Date Last Indicated Resolved Time Rule Out COVID-19 02/26/2020 02/26/2020 02/27/2020 4:32 PM BRICK HANDLER documented as of this encounter Care Teams Pharmaceutical Operator Relationship Specialty [place] [address] [place] [address] PCP - General Family Practice 12/29/17 05/21/20 Nikita Gamble MD PCP - General Family Medicine 05/26/20 Annette Alvarez APRN ACTUARIAL MANAGER [address] [place], [place] [id number] Nurse Practitioner Clinical Nurse Specialist 03/22/17 10/21/[address] [place] [address] Sql Programmer Dietitian, Registered 05/25/18 Tamar Murphy APRN ACTUARIAL MANAGER Assigned PCP 02/08/20 11/15/20 [place] [address] [place], [place] [address] Assigned PCP 11/16/20 Harlan Lin MD NO INFO AVAILABLE Assigned Endocrinology Provider 12/07/20 08/01/21 Mikki Blevins MD [address] [place] [address] Endocrinology, Diabetes, and Metabolism 05/07/21 [place] [address] Assigned Endocrinology Provider 08/02/21 01/28/23 Mindi Llanes PA-C [address] [place] [address] Assigned Surgical Provider 09/26/21 documented as of this encounter
--- OUTSIDE RECORDS SUMMARY | 2023-07-05 13:27 | XMS_ITS | Encounter Summary ---
Author Name Unknown Organization [facility] Address [address] [place] [address]. [place] [address] Care Team Providers Care Spragger Name Role Phone Alvarez Annette Monroe APRN MANUFACTURING CHIEF ENGINEER Unavailable [phone] Unavailable [phone] Tamar Murphy APRN MANUFACTURING CHIEF ENGINEER Unavailable Unavail able Nikita Gamble MD Primary Care Provider Naveen Casiano MD Unavailable [phone] Harlan Lin MD Unavailable Milagro vailable Mikki Blevins MD Unavailable [phone] Mikki Blevins MD Unavailable [phone] Mindi Llanes PA-C Unavailable [phone] Encounter Details Date Type Department Care Team (Late st Contact Info) Description 09/06/2020 [facility] [place] [facility] [address] [facility] [address] [place] [address] [place] [address] Social History Tobacco Use Types Packs/Day Years Used Date Smoking Tobacco: Never Smokeless Tobacco: Never Alcohol Use Standard Drinks/Week Comments Yes 0 (1 standard drink = 0.6 oz pur e alcohol) rare PHQ-2 Answer Date Recorded PHQ-2 Score 0 02/26/2020 Sex and Gender Information Value Date Recorded Sex Assigned at Female 03/04/2020 12:33 PM EMPLOYMENT APPEALS EXAMINER Gender Identity Female 03/04/2020 12:33 PM EMPLOYMENT APPEALS EXAMINER Sexual Orientation Straight 03/04/2020 12 :33 PM EMPLOYMENT APPEALS EXAMINER documented as of this encounter Miscellaneous Notes * Telephone Encounter - Naveen Casiano MD - 09/08/2020 12:23 PM CDT Care everywhere from [facility] next visit Naveen Casiano MD * Telephone Encounter - Corina Escobar RD - 09/08/2020 11:07 AM CDT Forwarded Virtualtwo message to Tamar Murphy, who I believe was the intended recipient. Corina Escobar RD, LD, CDE documented in this encounter Plan of Treatment Not on file documented as of this encounter Visit Diagnoses Not on filedocumented in this encounter Additional Health Concerns Assessment Noted Time PHQ-9 Depression Total Score: 0 02/26/20 20 1:30 PM EMPLOYMENT APPEALS EXAMINER documented as of this encounter Care Teams Spragger Relationship Specialty Start Date End Date Nikita Gamble MD PCP - General Family Medicine 05/26/20 Annette Alvarez APRN MANUFACTURING CHIEF ENGINEER [address] [place] [address] Nurse Practitioner Clinical Nurse Specialist 03/22/17 10/21/[address] [place] [address] Director Of Training Dietitian, Registered 05/25/18 Tamar Murphy APRN MANUFACTURING CHIEF ENGINEER Assigned PCP 02/08/20 11/15/20 [place] [address] [place] [place] [address] Assigned PCP 11/16/20 Harlan Lin MD NO INFO AVAILABLE Assigned Endocrinology Provider 12/07/20 08/01/21 Mikki Blevins MD [address] [place] [address] Endocrinology, Diabetes, and Metabolism 05/07/21 [place] [address] Assigned Endocrinology Provider 08/02/21 01/28/23 Mindi Llanes PA-C [address] [place] [address] Assigned Surgical Provider 09/26/21 documented as of this encounter
--- OUTSIDE RECORDS SUMMARY | 2023-07-05 13:27 | XMS_ITS | Encounter Summary ---
Author Name Unknown Organization [facility] Address [address] [place] [address]. [place] [address] Care Team Providers Care Coal Pipeline Operator Name Role Phone Antonio Annette Monroe APRN EARTH SCIENCE TEACHER Unavailable Goran Lloyd MD Primary Care Provider Jocelyn Davidson RD Unavailable [phone] Tamar Murphy APRN EARTH SCIENCE TEACHER Unavailable Unavail able Nikita Gamble MD Primary Care Provider [phone] Naveen Casiano MD Unavailable [phone] Harlan Lin MD Unavailable Milagro vailable Mikki Blevins MD Unavailable [phone] Mikki Blevins MD Unavailable [phone] Mindi Llanes PA-C Unavailable [phone] Encounter Details Date Type Department Care Team (Late st Contact Info) Description 2020 [facility] [address] [address] Tamar Murphy APRN CNP Social History Tobacco Use Types Packs/Day Years Used Date Smoking Tobacco: Never Smokeless Tobacco: Never Alcohol Use Standard Drinks/Week Comments Yes 0 (1 standard drink = 0.6 oz pur e alcohol) rare PHQ-2 Answer Date Recorded PHQ-2 Score 0 02/26/2020 Sex and Gender Information Value Date Recorded Sex Assigned at Female 03/04/2020 12:[address] COMMISSIONER Gender Identity Female 03/04/2020 12:[address] COMMISSIONER Sexual Orientation Straight 03/04/2020 12 :[address] COMMISSIONER COVID-19 Exposure Response Date Recorded In the last month, have you been in contact with someone who was confirmed or suspected to have Coronavirus / COVID-19? No / Unsure 02/03/2020 12:[address] COMMISSIONER documented as of this encounter Plan of Treatment Not on file documented as of this encounter Visit Diagnoses Not on filedocumented in this encounter Additional Health Concerns Assessment Noted Time PHQ-9 Depression Total Score: 0 02/26/20 20 1:[address] COMMISSIONER documented as of this encounter Care Teams Coal Pipeline Operator Relationship Specialty [place] [address] [place] [address] PCP - General Family Practice 12/29/17 05/21/20 Nikita Gamble MD PCP - General Family Medicine 05/26/20 Annette Alvarez APRN EARTH SCIENCE TEACHER [address] [place] [address] Nurse Practitioner Clinical Nurse Specialist 03/22/17 10/21/[address] [place] [address] Trade Economist Dietitian, Registered 05/25/18 Tamar Murphy APRN EARTH SCIENCE TEACHER Assigned PCP 02/08/20 11/15/20 [place] [address] [place], [place] [address] Assigned PCP 11/16/20 Harlan Lin MD NO INFO AVAILABLE Assigned Endocrinology Provider 12/07/20 08/01/21 Mikki Blevins MD [address] [place] [address] Endocrinology, Diabetes, and Metabolism 05/07/21 [place] [address] Assigned Endocrinology Provider 08/02/21 01/28/23 Mindi Llanes PA-C [address] [place] [address] Assigned Surgical Provider 09/26/21 documented as of this encounter
--- OUTSIDE RECORDS SUMMARY | 2023-07-05 13:27 | XMS_ITS | Encounter Summary ---
Author Name Unknown Organization [facility] Address [address] [place] [address]. [place] [address] Care Team Providers Care Pharmaceutical Process Engineer Name Role Phone Jocelyn Davidson Bran YANEZ Unavailable [phone] Nikita Gamble MD Primary Care Provider Naveen Casiano MD Unavailable [phone] Harlan Lin MD Unavailable Milagro vailable Mikki Blevins MD Unavailable [phone] Mikki Blevins MD Unavailable [phone] Mindi Llanes PA-C Unavailable [phone] Reason for Visit * Reason Onset Date Comments Diabetes Education 12/05/2020 Encounter Details Date Type Department Care Team (Late st Contact Info) Description 12/05/2020 [facility] Nurse Advisors [facility] [place] [address] Hernando Gray Diabetes Education Social History Tobacco Use Types Packs/Day Years Used Date Smoking Tobacco: Never Smokeless Tobacco: Never Alcohol Use Standard Drinks/Week Comments Yes 0 (1 standard drink = 0.6 oz pur e alcohol) rare PHQ-2 Answer Date Recorded PHQ-2 Score 0 02/26/2020 Sex and Gender Information Value Date Recorded Sex Assigned at Female 03/04/2020 12:33 PM PARK INTERPRETIVE RANGER Gender Identity Female 03/04/2020 12:33 PM PARK INTERPRETIVE RANGER Sexual Orientation Straight 03/04/2020 12 :33 PM PARK INTERPRETIVE RANGER COVID-19 Exposure Response Date Recorded In the [...] back at a better time. Hernando Gray [facility] Scheduling documented in this encounter Plan of Treatment Not on file documented as of this encounter Visit Diagnoses Not on filedocumented in this encounter Additional Health Concerns Assessment Noted Time PHQ-9 Depression Total Score: 0 02/26/20 20 1:30 PM PARK INTERPRETIVE RANGER documented as of this encounter Care Teams Pharmaceutical Process Engineer Relationship Specialty Start Date End Date Nikita Gamble MD [address] [place] [address] PCP - General Family Medicine 05/26/20 Jocelyn Davidson, RENATA [address] [place] [address] Hearing Impaired Itinerant Teacher Dietitian, Registered 05/25/18 [place] [address] [place] [address] Assigned PCP 11/16/20 Harlan Lin MD NO INFO AVAILABLE Assigned Endocrinology Provider 12/07/20 08/01/21 Mikki Blevins MD [address] [place] [address] Endocrinology, Diabetes, and Metabolism 05/07/21 Mikki Blevins MD [facility] [place] [address] Assigned Endocrinology Provider 08/02/21 01/28/23 Mindi Llanes PA-C [address] [place] [address] Assigned Surgical Provider 09/26/21 documented as of this encounter
--- OUTSIDE RECORDS SUMMARY | 2023-07-05 13:27 | XMS_ITS | Encounter Summary ---
Author Name Unknown Organization [facility] Address [address] [place] [address]. [place] [address] Care Team Providers Care Pipe Stem Sawyer Name Role Phone Annette Alvarez APRN CRIME SCENE EXAMINER Unavailable [phone] Unavailable [phone] Tamar Murphy APRN CRIME SCENE EXAMINER Unavailable Unavail able Nikita Gamble MD Primary Care Provider Naveen Casiano MD Unavailable [phone] Harlan Lin MD Unavailable Milagro vailable Mikki Blevins MD Unavailable [phone] Mikki Blevins MD Unavailable [phone] Mindi Llanes PA-C Unavailable [phone] Reason for Visit * Reason Comments Medication Refill Encounter Details Date Type Department Care Team (Late st Contact Info) Description 06/05/2020 Refill [facility] [address] [place] [address] Annette Alvarez APRN CRIME SCENE EXAMINER [address] [place], [place] [id number] Medication Refill Social History Tobacco Use Types Packs/Day Years Used Date Smoking Tobacco: Never Smokeless Tobacco: Never Alcohol Use Standard Drinks/Week Comments Yes 0 (1 standard drink = 0.6 oz pur e alcohol) rare PHQ-2 Answer Date Recorded PHQ-2 Score 0 02/26/2020 Sex and Gender Information Value Date Recorded Sex Assigned at Female 03/04/2020 12:33 PM BATTERY ASSEMBLER DRY CELL Gender Identity Female 03/04/2020 12:33 PM BATTERY ASSEMBLER DRY CELL Sexual Orientation Straight 03/04/2020 12 :33 PM BATTERY ASSEMBLER DRY CELL documented as of this encounter Miscellaneous Notes * Telephone Encounter - Jasmyn Lee RN - 06/05/2020 11:52 AM BATTERY ASSEMBLER DRY CELL Prescription approved per [facility] Refill Protocol. Jasmyn Lee RN [facility] -- Triage Nurse ERY ASSEMBLER DRY CELL documented in this encounter Plan of Treatment Not on file documented as of this encounter Visit Diagnoses Diagnosis Hypothyroidism due to acquired atrophy of thyroid documented in this encounter Additional Health Concerns Assessment Noted Time PHQ-9 Depression Total Score: 0 02/26/20 20 1:30 PM BATTERY ASSEMBLER DRY CELL documented as of this encounter Care Teams Pipe Stem Sawyer Relationship Specialty Start Date End Date Nikita Gamble MD PCP - General Family Medicine 05/26/20 Annette Alvarez APRN CRIME SCENE EXAMINER [address] [place] [address] Nurse Practitioner Clinical Nurse Specialist 03/22/17 10/21/[address] [facility] [address] [place] [address] Master In Chancery Dietitian, Registered 05/25/18 Tamar Murphy APRN CRIME SCENE EXAMINER Assigned PCP 02/08/20 11/15/20 [place] [address] [place] [address] Assigned PCP 11/16/20 Harlan Lin MD NO INFO AVAILABLE Assigned Endocrinology Provider 12/07/20 08/01/21 Mikki Blevins MD [address] [place] [address] Endocrinology, Diabetes, and Metabolism 05/07/21 [place] [address] Assigned Endocrinology Provider 08/02/21 01/28/23 Mindi Llanes PA-C [address] [place] [address] Assigned Surgical Provider 09/26/21 documented as of this encounter
--- OUTSIDE RECORDS SUMMARY | 2023-07-05 13:27 | XMS_ITS | Encounter Summary ---
Author Name Unknown Organization [facility] Address [facility] [place] [address] Care Team Providers Care Protection Agent Name Role Phone Annette Alvarez Mabel ALVAREZ LPN CMA Unavailable [phone] Goran Lloyd MD Primary Care Provider [phone] Unavailable [phone] Tamar Murphy APRN LPN CMA Unavailable Unavail able Nikita Gamble MD Primary Care Provider Naveen Casiano MD Unavailable [phone] Harlan Lin MD Unavailable Milagro vailable Mikki Blevins MD Unavailable [phone] Mikki Blevins MD Unavailable [phone] Mindi Llanes PA-C Unavailable [phone] Encounter Details Date Type Department Care Team (Late st Contact Info) Description 07/05/2018 [facility] Medical Advice [facility] [address] [facility] [address] [place] [address] Jocelyn Davidson, RENATA [address] [place] [address] Social History Tobacco Use Types Packs/Day Years Used Date Smoking Tobacco: Never Smokeless Tobacco: Never Alcohol Use Standard Drinks/Week Comments Yes 0 (1 standard drink = 0.6 oz pur e alcohol) rare Sex and Gender Information Value Date Recorded Sex Assigned at Female 03/04/2020 12:33 PM MEDICAL CARE MANAGER Gender Identity Female 03/04/2020 12:33 PM MEDICAL CARE MANAGER Sexual Orientation Straight 03/04/2020 12 :33 PM MEDICAL CARE MANAGER documented as of this encounter Plan of Treatment Not on file documented as of this encounter Visit Diagnoses Not on filedocumented in this encounter Additional Health Concerns Infection Onset Date Last Indicated Resolved Time Rule Out COVID-19 02/26/2020 02/26/2020 02/27/2020 4:32 PM MEDICAL CARE MANAGER documented as of this encounter Care Teams Protection Agent Relationship Specialty [place] [address] [place] [address] PCP - General Family Practice 12/29/17 05/21/20 Nikita Gamble MD PCP - General Family Medicine 05/26/20 Annette Alvarez APRN LPN CMA [address] [place] [address] Nurse Practitioner Clinical Nurse Specialist 03/22/17 10/21/[address] [place] [address] Aviation Boatswain'S Mate Dietitian, Registered 05/25/18 Tamar Murphy APRN LPN CMA Assigned PCP 02/08/20 11/15/20 [place] [address] [place], [place] [address] Assigned PCP 11/16/20 Harlan Lin MD NO INFO AVAILABLE Assigned Endocrinology Provider 12/07/20 08/01/21 Mikki Blevins MD [address] [place] [address] Endocrinology, Diabetes, and Metabolism 05/07/21 [place] [address] Assigned Endocrinology Provider 08/02/21 01/28/23 Mindi Llanes PA-C [address] [place] [address] Assigned Surgical Provider 09/26/21 documented as of this encounter
--- OUTSIDE RECORDS SUMMARY | 2023-07-05 13:27 | XMS_ITS | Encounter Summary ---
Author Name Unknown Organization [facility] Address [address] [place] [address]. [place] [address] Care Team Providers Care Coo & Co Founder Name Role Phone Stuart Jocelyn Bran YANEZ Unavailable [phone] Nikita Gamble MD Primary Care Provider Naveen Casiano MD Unavailable [phone] Mikki Blevins MD Unavailable [phone] Mikki Blevins MD Unavailable [phone] Mindi Llanes PA-C Unavailable [phone] Encounter Details Date Type Department Care Team (Late st Contact Info) Description 10/20/2021 [facility] [address] [address] Diandra Giordano, MAURICE Social History Tobacco Use Types Packs/Day Years Used Date Smoking Tobacco: Never Smokeless Tobacco: Never Alcohol Use Standard Drinks/Week Comments Yes 0 (1 standard drink = 0.6 oz pur e alcohol) rare PHQ-2 Answer Date Recorded PHQ-2 Score 0 02/26/2020 Sex and Gender Information Value Date Recorded Sex Assigned at Female 03/04/2020 12:33 PM PLUG PASTER Gender Identity Female 03/04/2020 12:33 PM PLUG PASTER Sexual Orientation Straight 03/04/2020 12 :33 PM PLUG PASTER documented as of this encounter Plan of Treatment Not on file documented as of this encounter Visit Diagnoses Not on filedocumented in this encounter Additional Health Concerns Assessment Noted Time PHQ-9 Depression Total Score: 0 02/26/20 20 1:30 PM PLUG PASTER documented as of this encounter Care Teams Coo & Co Founder Relationship Specialty Start Date End Date Nikita Gamble MD [place] [address] [place] [address] PCP - General Family Medicine 05/26/20 Jocelyn Davidson, RD [place] [address] [place] [address] Coke Production Heater Dietitian, Registered 05/25/18 [place] [address] [place] [address] Assigned PCP 11/16/20 Mikki Blevins MD [address] [place] [address] Endocrinology, Diabetes, and Metabolism 05/07/21 [place] [address] Assigned Endocrinology Provider 08/02/21 01/28/23 Mindi Llanes PA-C [address] [facility] [address] [place] [address] Assigned Surgical Provider 09/26/21 documented as of this encounter
--- OUTSIDE RECORDS SUMMARY | 2023-07-05 13:27 | XMS_ITS | Encounter Summary ---
Author Name Unknown Organization [facility] Address [address] [place] [address]. [place] [address] Care Team Providers Care Foot Roentgenologist Name Role Phone StuartJocelyn desouza Bran YANEZ Unavailable [phone] Nikita Gamble MD Primary Care Provider [phone] Naveen Casiano MD Unavailable [phone] Mikki Blevins MD Unavailable [phone] Mikki Blevins MD Unavailable [phone] Mindi Llanes PA-C Unavailable [phone] Encounter Details Date Type Department Care Team (Late st Contact Info) Description 12/21/2021 [facility] Medical Advice [facility] [address] [place] [address] Mindi Llanes PA-C [address] [facility] [address] [place], [place] [address] Social History Tobacco Use Types Packs/Day Years Used Date Smoking Tobacco: Never Smokeless Tobacco: Never Alcohol Use Standard Drinks/Week Comments Yes 0 (1 standard drink = 0.6 oz pur e alcohol) rare PHQ-2 Answer Date Recorded PHQ-2 Score 0 02/26/2020 Sex and Gender Information Value Date Recorded Sex Assigned at Female 03/04/2020 12:33 PM NURSE MANAGER Gender Identity Female 03/04/2020 12:33 PM NURSE MANAGER Sexual Orientation Straight 03/04/2020 12 :33 PM NURSE MANAGER documented as of this encounter Plan of Treatment Not on file documented as of this encounter Visit Diagnoses Not on filedocumented in this encounter Additional Health Concerns Assessment Noted Time PHQ-9 Depression Total Score: 0 02/26/20 20 1:30 PM NURSE MANAGER documented as of this encounter Care Teams Foot Roentgenologist Relationship Specialty Start Date End Date Nikita Gamble MD [facility] - [address] [place] [address] PCP - General Family Medicine 05/26/[address] [place] [address] Electric Power Machine Operator Dietitian, Registered 05/25/18 [place] [address] [place] [address] Assigned PCP 11/16/20 Mikki Blevins MD [address] [place] [address] Endocrinology, Diabetes, and Metabolism 05/07/21 [place] [address] Assigned Endocrinology Provider 08/02/21 01/28/23 Mindi Llanes PA-C [address] [facility] [address] [place] [address] Assigned Surgical Provider 09/26/21 documented as of this encounter
--- OUTSIDE RECORDS SUMMARY | 2023-07-05 13:27 | XMS_ITS | Encounter Summary ---
Author Name Unknown Organization [facility] Address [address] [place] [address]. [place] [address] Care Team Providers Care Repairer Shoe Sticks Name Role Phone StuartJocelyn desouza Bran YANEZ Unavailable [phone] Nikita Gamble MD Primary Care Provider Naveen Casiano MD Unavailable [phone] Mikki Blevins MD Unavailable [phone] Mikki Blevins MD Unavailable [phone] Mindi Llanes PA-C Unavailable [phone] Encounter Details Date Type Department Care Team (Late st Contact Info) Description 08/05/2021 [facility] Medical Advice [facility] Specialty [address] [address] Mikki Blevins MD [place] [address] Social History Tobacco Use Types Packs/Day Years Used Date Smoking Tobacco: Never Smokeless Tobacco: Never Alcohol Use Standard Drinks/Week Comments Yes 0 (1 standard drink = 0.6 oz pur e alcohol) rare PHQ-2 Answer Date Recorded PHQ-2 Score 0 02/26/2020 Sex and Gender Information Value Date Recorded Sex Assigned at Female 03/04/2020 12:33 PM TYPE MAPPER Gender Identity Female 03/04/2020 12:33 PM TYPE MAPPER Sexual Orientation Straight 03/04/2020 12 :33 PM TYPE MAPPER documented as of this encounter Miscellaneous Notes * Telephone Encounter - Radha Fernandez RN - 08/06/2021 8:40 AM CDT documented in this encounter Plan of Treatment Not on file documented as of this encounter Visit Diagnoses Not on filedocumented in this encounter Additional Health Concerns Assessment Noted Time PHQ-9 Depression Total Score: 0 02/26/20 20 1:30 PM TYPE MAPPER documented as of this encounter Care Teams Repairer Shoe Sticks Relationship Specialty Start Date End Date Nikita Gamble MD [address] [place] [address] PCP - General Family Medicine 05/26/[address] [place] [address] Airplane Tube Builder Dietitian, Registered 05/25/18 [place] [address] [place] [address] Assigned PCP 11/16/20 Mikki Blevins MD [address] [place] [address] Endocrinology, Diabetes, and Metabolism 05/07/21 [place] [address] Assigned Endocrinology Provider 08/02/21 01/28/23 Mindi Llanes PA-C [address] [place] [address] Assigned Surgical Provider 09/26/21 documented as of this encounter
--- OUTSIDE RECORDS SUMMARY | 2023-07-05 13:27 | XMS_ITS | Encounter Summary ---
Author Name Unknown Organization [facility] Address [address] [place] [address]. [place] [address] Care Team Providers Care Armhole Baster Hand Name Role Phone Jocelyn Davidson RD Unavailable [phone] Nikita Gamble MD Primary Care Provider Naveen Casiano MD Unavailable [phone] Mikki Blevins MD Unavailable [phone] Mikki Blevins MD Unavailable [phone] Mindi Llanes PA-C Unavailable [phone] Encounter Details Date Type Department Care Team (Late st Contact Info) Description 09/21/2021 [facility] Medical Advice Initial [facility] [place] Social History Tobacco Use Types Packs/Day Years Used Date Smoking Tobacco: Never Smokeless Tobacco: Never Alcohol Use Standard Drinks/Week Comments Yes 0 (1 standard drink = 0.6 oz pur e alcohol) rare PHQ-2 Answer Date Recorded PHQ-2 Score 0 02/26/2020 Sex and Gender Information Value Date Recorded Sex Assigned at Female 03/04/2020 12:33 PM QUALITY SYSTEMS SPECIALIST Gender Identity Female 03/04/2020 12:33 PM QUALITY SYSTEMS SPECIALIST Sexual Orientation Straight 03/04/2020 12 :33 PM QUALITY SYSTEMS SPECIALIST documented as of this encounter Plan of Treatment Not on file documented as of this encounter Visit Diagnoses Not on filedocumented in this encounter Additional Health Concerns Assessment Noted Time PHQ-9 Depression Total Score: 0 02/26/20 20 1:30 PM QUALITY SYSTEMS SPECIALIST documented as of this encounter Care Teams Armhole Baster Hand Relationship Specialty Start Date End Date Nikita Gamble MD [address] [place] [address] PCP - General Family Medicine 05/26/20 Jocelyn Davidson, RENATA [address] [place] [address] Bush Hog Operator Dietitian, Registered 05/25/18 [place] [address] [place] [address] Assigned PCP 11/16/20 Mikki Blevins MD [address] [place] [address] Endocrinology, Diabetes, and Metabolism 05/07/21 [place] [address] Assigned Endocrinology Provider 08/02/21 01/28/23 Mindi Llanes PA-C [address] [facility] [id number] [place] [address] Assigned Surgical Provider 09/26/21 documented as of this encounter
--- OUTSIDE RECORDS SUMMARY | 2023-07-05 13:27 | XMS_ITS | Encounter Summary ---
Author Name Unknown Organization [facility] Address [address] [place] [address]. [place] [address] Care Team Providers Care Director Of Nuclear Medicine Name Role Phone Chay Alvarezharrison Monroe APRN PRECISION LENS POLISHER Unavailable Goran Lloyd MD Primary Care Provider Jocelyn Davidson RD Unavailable [phone] Tamar Murphy APRN PRECISION LENS POLISHER Unavailable Unavail able Nikita Gamble MD Primary Care Provider [phone] Naveen Casiano MD Unavailable [phone] Harlan Lin MD Unavailable Milagro vailable Mikki Blevins MD Unavailable [phone] Mikki Blevins MD Unavailable [phone] Mindi Llanes PA-C Unavailable [phone] Encounter Details Date Type Department Care Team (Late st Contact Info) Description 10/17/2018 [facility] Medical Advice [address] [address] Ashok Blela, RN Social History Tobacco Use Types Packs/Day Years Used Date Smoking Tobacco: Never Smokeless Tobacco: Never Alcohol Use Standard Drinks/Week Comments Yes 0 (1 standard drink = 0.6 oz pur e alcohol) rare Sex and Gender Information Value Date Recorded Sex Assigned at Female 03/04/2020 12:33 PM INVESTIGATIONS MANAGER Gender Identity Female 03/04/2020 12:33 PM INVESTIGATIONS MANAGER Sexual Orientation Straight 03/04/2020 12 :33 PM INVESTIGATIONS MANAGER documented as of this encounter Plan of Treatment Not on file documented as of this encounter Visit Diagnoses Not on filedocumented in this encounter Additional Health Concerns Infection Onset Date Last Indicated Resolved Time Rule Out COVID-19 02/26/2020 02/26/2020 02/27/2020 4:32 PM INVESTIGATIONS MANAGER documented as of this encounter Care Teams Director Of Nuclear Medicine Relationship Specialty [place] [address] [place] [address] PCP - General Family Practice 12/29/17 05/21/20 Nikita Gamble MD PCP - General Family Medicine 05/26/20 Annette Alvarez APRN PRECISION LENS POLISHER [address] [place] [address] Nurse Practitioner Clinical Nurse Specialist 03/22/17 10/21/[address] [place] [address] Processing Archivist Dietitian, Registered 05/25/18 Tamar Murphy APRN PRECISION LENS POLISHER Assigned PCP 02/08/20 11/15/20 [place] [address] [place] [address] Assigned PCP 11/16/20 Harlan Lin MD NO INFO AVAILABLE Assigned Endocrinology Provider 12/07/20 08/01/21 Mikki Blevins MD [address] [place] [address] Endocrinology, Diabetes, and Metabolism 05/07/21 Mikki Blevins [place] [address] Assigned Endocrinology Provider 08/02/21 01/28/23 Mindi Llanes PA-C [address] [place] [address] Assigned Surgical Provider 09/26/21 documented as of this encounter
--- OUTSIDE RECORDS SUMMARY | 2023-07-05 13:27 | XMS_ITS | Encounter Summary ---
Author Name Unknown Organization [facility] Address [address] [place] [address]. [place] [address] Care Team Providers Care Stain Dipper Name Role Phone StuartJocelyn desouza Bran YANEZ Unavailable [phone] Nikita Gamble MD Primary Care Provider Naveen Casiano MD Unavailable [phone] Mikki Blevins MD Unavailable [phone] Mikki Blevins MD Unavailable [phone] Mindi Llanes PA-C Unavailable [phone] Reason for Visit * Reason Onset Date Comments Medication Question 09/14/2021 OZEMPIC Encounter Details Date Type Department Care Team (Late st Contact Info) Description 09/14/2021 Telephone [facility] Specialty [address] [place] [address] Mikki Blevins MD [place] [address] Medication Question (OZEMPIC) Social History Tobacco Use Types Packs/Day Years Used Date Smoking Tobacco: Never Smokeless Tobacco: Never Alcohol Use Standard Drinks/Week Comments Yes 0 (1 standard drink = 0.6 oz pur e alcohol) rare PHQ-2 Answer Date Recorded PHQ-2 Score 0 02/26/2020 Sex and Gender Information Value Date Recorded Sex Assigned at Female 03/04/2020 12:33 PM RESIDENTIAL PROPERTY TAX APPRAISER Gender Identity Female 03/04/2020 12:33 PM RESIDENTIAL PROPERTY TAX APPRAISER Sexual Orientation Straight 03/04/2020 12 :33 PM RESIDENTIAL PROPERTY TAX APPRAISER documented as of this encounter Miscellaneous Notes * Telephone Encounter - Liberty Rader - 09/14/2021 4:43 PM CDT [facility] Phone Message May a detailed message be left on voicemail: yes Reason for Call: Medication Question or concern regarding medication Prescription Clarification Name of Medication: OZEMPIC Prescribing Provider: [facility] Pharmacy: [id number] [place] [address] What on the order needs clarification? Pt [...] Depression Total Score: 0 02/26/20 1:30 PM RESIDENTIAL PROPERTY TAX APPRAISER documented as of this encounter Care Teams Stain Dipper Relationship Specialty Start Date End Date Nikita Gamble MD [place] [address] [place] [address] PCP - General Family Medicine 05/26/[address] [facility] [place] [place] [address] Lead Applier Dietitian, Registered 05/25/18 [place] [address] [place] [address] Assigned PCP 11/16/20 Mikki Blevins MD [address] [place] [address] Endocrinology, Diabetes, and Metabolism 05/07/21 [place] [address] Assigned Endocrinology Provider 08/02/21 01/28/23 Mindi Llanes PA-C [address] [place] [address] Assigned Surgical Provider 09/26/21 documented as of this encounter
--- OUTSIDE RECORDS SUMMARY | 2023-07-05 13:27 | XMS_ITS | Encounter Summary ---
Author Name Unknown Organization [facility] Address [address] [place] [address]. [place] [address] Care Team Providers Care Parts Salesman Name Role Phone StuartJocelyn desouza Bran YANEZ Unavailable [phone] Nikita Gamble MD Primary Care Provider Naveen Casiano MD Unavailable [phone] Mikki Blevins MD Unavailable [phone] Mikki Blevins MD Unavailable [phone] Mindi Llanes PA-C Unavailable [phone] Reason for Visit * Reason Comments Medication Refill Encounter Details Date Type Department Care Team (Late st Contact Info) Description 12/20/2021 Refill [facility] [address] [place] [phone] Mindi Llanes PA-C [address] [place] [id number] Medication Refill Social History Tobacco Use Types Packs/Day Years Used Date Smoking Tobacco: Never Smokeless Tobacco: Never Alcohol Use Standard Drinks/Week Comments Yes 0 (1 standard drink = 0.6 oz pur e alcohol) rare PHQ-2 Answer Date Recorded PHQ-2 Score 0 02/26/2020 Sex and Gender Information Value Date Recorded Sex Assigned at Female 03/04/2020 12:33 PM LAST WAXER Gender Identity Female 03/04/2020 12:33 PM LAST WAXER Sexual Orientation Straight 03/04/2020 12 :33 PM LAST WAXER documented as of this encounter Miscellaneous Notes [...] Total Score: 0 02/26/20 20 1:30 PM LAST WAXER documented as of this encounter Care Teams Parts Salesman Relationship Specialty Start Date End Date Nikita Gamble MD [facility] [address] [place] [address] [place] [address] PCP - General Family Medicine 05/26/[address] [place] [address] Hand Former Helper Dietitian, Registered 05/25/18 [place] [address] [place] [place] [place] [address] Assigned PCP 11/16/20 Mikki Blevins MD [address] [place] [address] Endocrinology, Diabetes, and Metabolism 05/07/21 [place] [address] Assigned Endocrinology Provider 08/02/21 01/28/23 Mindi Llanes PA-C [address] [place] [address] Assigned Surgical Provider 09/26/21 documented as of this encounter
--- OUTSIDE RECORDS SUMMARY | 2023-07-05 13:27 | XMS_ITS | Encounter Summary ---
Author Name Unknown Organization [facility] Address [address] [place] [address]. [place] [address] Care Team Providers Care Special Services Agent Name Role Phone Jocelyn Davidson RD Unavailable [phone] Nikita Gamble MD Primary Care Provider Naveen Casiano MD Unavailable [phone] Mikki Blevins MD Unavailable [phone] Mikki Blevins MD Unavailable [phone] Mindi Llanes PA-C Unavailable [phone] Encounter Details Date Type Department Care Team (Late st Contact Info) Description 02/05/2022 [facility] Medical Advice [facility] [address] [address] Liberty Gilliam MA Social History Tobacco Use Types Packs/Day Years Used Date Smoking Tobacco: Never Smokeless Tobacco: Never Alcohol Use Standard Drinks/Week Comments Yes 0 (1 standard drink = 0.6 oz pur e alcohol) rare PHQ-2 Answer Date Recorded PHQ-2 Score 0 02/26/2020 Sex and Gender Information Value Date Recorded Sex Assigned at Female 03/04/2020 12:33 PM MODELING AGENCY MANAGER Gender Identity Female 03/04/2020 12:33 PM MODELING AGENCY MANAGER Sexual Orientation Straight 03/04/2020 12 :33 PM MODELING AGENCY MANAGER documented as of this encounter Plan of Treatment Not on file documented as of this encounter Visit Diagnoses Not on filedocumented in this encounter Additional Health Concerns Assessment Noted Time PHQ-9 Depression Total Score: 0 02/26/20 20 1:30 PM MODELING AGENCY MANAGER documented as of this encounter Care Teams Special Services Agent Relationship Specialty Start Date End Date Nikita Gamble MD [place] [address] [place] [address] PCP - General Family Medicine 05/26/20 Jocelyn Davidson, [place] [address] [place] [address] Housekeeping Aid Dietitian, Registered 05/25/18 [place] [address] [place] [address] Assigned PCP 11/16/20 Mikki Blevins MD [address] [place] [address] Endocrinology, Diabetes, and Metabolism 05/07/21 [place] [address] Assigned Endocrinology Provider 08/02/21 01/28/23 Mindi Llanes PA-C [address] [facility] [address] [place] [address] Assigned Surgical Provider 09/26/21 documented as of this encounter
--- OUTSIDE RECORDS SUMMARY | 2023-07-05 13:27 | XMS_ITS | Encounter Summary ---
Author Name Unknown Organization [facility] Address [address] [place] [address]. [place] [address] Care Team Providers Care Vehicle Service Agent Name Role Phone Jocelyn Davidson Bran YANEZ Unavailable [phone] Nikita Gamble MD Primary Care Provider [phone] Naveen Casiano MD Unavailable [phone] Harlan Lin MD Unavailable Milagro vailable Mikki Blevins MD Unavailable [phone] Mikki Blevins MD Unavailable [phone] Mindi Llanes PA-C Unavailable [phone] Encounter Details Date Type Department Care Team (Late st Contact Info) Description 12/02/2020 [facility] Medical Advice M [address] [phone] Tamar Tristan Social History Tobacco Use Types Packs/Day Years Used Date Smoking Tobacco: Never Smokeless Tobacco: Never Alcohol Use Standard Drinks/Week Comments Yes 0 (1 standard drink = 0.6 oz pur e alcohol) rare PHQ-2 Answer Date Recorded PHQ-2 Score 0 02/26/2020 Sex and Gender Information Value Date Recorded Sex Assigned at Female 03/04/2020 12:33 PM DRAFTER Gender Identity Female 03/04/2020 12:33 PM DRAFTER Sexual Orientation Straight 03/04/2020 12 :33 PM DRAFTER COVID-19 Exposure Response Date Recorded In the [...] Total Score: 0 02/26/20 20 1:30 PM DRAFTER documented as of this encounter Care Teams Vehicle Service Agent Relationship Specialty Start Date End Date Nikita Gamble MD [address] [place] [address] PCP - General Family Medicine 05/26/[address] [place] [address] Film Projector Operator Dietitian, Registered 05/25/18 [place] [address] [place] [address] Assigned PCP 11/16/20 Harlan Lin MD NO INFO AVAILABLE Assigned Endocrinology Provider 12/07/20 08/01/21 Mikki Blevins MD [address] [place] [address] Endocrinology, Diabetes, and Metabolism 05/07/21 [place] [address] Assigned Endocrinology Provider 08/02/21 01/28/23 Mindi Llanes PA-C [address] [place] [address] [place] [address] Assigned Surgical Provider 09/26/21 documented as of this encounter
== END 2023-07-05 13:23 | disposition home or self-care (01) ==
LOC: CT 13:23
PROVIDERS: PCP Family Medicine; Visit Provider Family Medicine
DX: M25.531 Pain in right wrist (principal); M19.031 Primary osteoarthritis, right wrist; I70.90 Unspecified atherosclerosis
CPT/HCPCS: 73200

== ENCOUNTER 2023-10-07 14:30 | Outpatient (RCR) | payer OTHER, SELFPAY | END 2024-02-04 23:59 | disposition home or self-care (01) | PROVIDERS: PCP Family Medicine; Visit Provider Orthopaedic Surgery | DX: S63.501A Unspecified sprain of right wrist, initial encounter (principal); Z51.89 Encounter for other specified aftercare | CPT/HCPCS: 97033; 97035; 97140; 97165 ==

== ENCOUNTER 2023-12-06 14:30 | Outpatient (CLI) | payer OTHER, SELFPAY | END 2023-12-06 14:31 | disposition home or self-care (01) | PROVIDERS: PCP Family Medicine; Visit Provider Family Medicine | DX: E03.9 Hypothyroidism, unspecified (principal); I10 Essential (primary) hypertension; D64.9 Anemia, unspecified; Z13.220 Encounter for screening for lipoid disorders | CPT/HCPCS: 80048; 80061; 84443; 84460; 85025 ==

== ENCOUNTER 2023-12-28 23:12 | Emergency (ER) | payer OTHER, SELFPAY ==
[2023-12-28] VITALS (7 sets, daily range): BP systolic 85–96; BP diastolic 39–57; PULSE 62–68; RESP 20; TEMP 36.4; O2SAT 63–98; BMI 34.0
--- OUTSIDE RECORDS SUMMARY | 2023-12-28 23:15 | XMS_ITS | Continuity of Care Document ---
Author Organization [facility] enter Address [address] [place] [address] Phone Care Team Providers Care Husbandry Person Name Role Phone [facility] Unavailable Unava ilable Procedures Procedure Date Destruction of intraosseous basivertebra l nerve (I Destruction of intraosseous basivertebra l nerve (I Implant/insert device, noc Sales tax INTERLAMINAR CRV OR THRC INTERLAMINAR CRV OR THRC Sales tax Facet Jt Inj Cervical/Thoracic RIGHT Oct Facet Jt Inj Cerv/Thor 2nd Level RIGHT A Facet Jt Inj Cerv/Thor 3rd Level RIGHT A Advance Directives Directive Yes / No Effective Date File Name No Information Encounters Encounter Description Practice Location Reason(s) For Visit Diagnoses Date Provider Providers Copied on Encounter [facility], [address] [place] [address], [id number], [place] tel:[phone] [facility] No Information [facility]. [address] [place] [address], [id number], . tel:[phone] Referring Provider: Woody Michelle, [address] [place], [address] . tel:[phone] [facility], [address] [place] [address], [id number], tel:[phone] [facility] No Information 4 [facility]. [address] [place] [address], [id number], . tel:[phone] Referring Provider: Woody Michelle, [address] [place], [address] . tel:[phone] [facility], [address] [place] [address], [id number], tel:[phone] [place] [address] No Information 3 [facility]. [address] [place] [address], [id number], . tel:[phone] Referring Provider: Jammie Cruz, [address] [place], [address] . tel:[phone] Family History Family Member Type Diagnosis Age At Onset No Information Payers Payer name Insurance type Covered democrat ID Gabriele tyson(s) [facility] [id number] Social History Type Description Quantity Date Captured Comments Sex Female Smoking Status No Information Chief Complaint And Reason For Visit No Information Reason For Referral Reason For Referral No Information History Of Present Illness Encounter Date Complaint History Of Prese nt Illness No Information Functional Status Date Functional Assessmen t No Information Instructions Date Instruction Additional Infor mation No Information Assessments Type Assessment Date No Information Patient Care Teams Name Effective Dates (start - stop) Status Members No Information
--- OUTSIDE RECORDS SUMMARY | 2023-12-28 23:15 | XMS_ITS | Continuity of Care Document ---
Author Organization [facility] Address [address] [facility] [place] [address] Care Team Providers Care Mobile Nurse Name Role Phone [facility] Unavailable Unav ailable Procedures Procedure Date Facet Jt Inj Lumbar LEFT Facet Jt Inj Lumbar RIGHT Facet Inj Lumbar 2nd Level LEFT 023 Facet Inj Lumbar 2nd Level RIGHT 2022 Sales tax Facet Jt Inj Cervical/Thoracic RIGHT Jan Facet Jt Inj Cerv/Thor 2nd Level RIGHT N Facet Jt Inj Cerv/Thor 3rd Level RIGHT N Advance Directives Directive Yes / No Effective Date File Name No Information Encounters Encounter Description Practice Location Reason(s) For Visit Diagnoses Date Provider Providers Copied on Encounter [facility], [address] [place], [place], [id number], [facility] No Information [facility]. [address] [facility] [place], [id number], [place]. tel:[phone] Referring Provider: Woody Michelle, [address] [facility] [place], [address]. tel:[phone] [facility], [address] [place], [place], [id number], [facility] No Information [facility]. [address] [facility] [place], [id number], [place]. tel:[phone] Referring Provider: Woody Ahn, [address] [place], [address]. tel:[phone] Family History Family Member Type Diagnosis Age At Onset No Information Payers Payer name Insurance type Covered constitution party ID Gabriele tyson(s) [employer] [id number] Social History Type Description Quantity Date Captured [...]
--- OUTSIDE RECORDS SUMMARY | 2023-12-28 23:15 | XMS_ITS | Continuity of Care Document ---
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 person, situation. Patient Care Teams Name Effective Dates (start - stop) Status Members No Information
--- OUTSIDE RECORDS SUMMARY | 2023-12-28 23:15 | XMS_ITS | Continuity of Care Document ---
Author Organization [facility] Address [address] [address] [place] [address] Phone Care Team Providers Care Recreation Aide Name Role Phone Rebecca MERCADO, Torey Unavailable Unavailable Procedures Procedure Date ERCP w/FB or stent removal Ercp; W/endo Retro Remov Stone Ercp; W/endo Retro Remov Stone ERCP w/stent & sphinc Advance Directives Directive Yes / No Effective Date File Name No Information Encounters Encounter Description Practice Location Reason(s) For Visit Diagnoses Date Provider Providers Copied on Encounter [facility], [address] [address], [place], [place], [id number], [place] [phone] [facility] No Information 2 Rebecca Lema. [address] [place] [address], [facility] [address], [place], [id number] , [place]. [phone] Referring Provider: Torey Fernandez MD, [address] [place] [address], [place], [address] . tel:[phone] [facility], [address] [address], [place], [place], [id number], [place] [phone] [facility] Bile leak 2 Mendoza Castillo. [address] [facility], [place], [place], [id number] , [place]. [phone] [facility], [address] [address], [place], [place], [id number], [place] [phone] [facility] No Information Sanjeev Castillo. [address] [facility], [place], [id number] , [place]. [phone] Referring Provider: Jonathan Rosado, [address] [facility] [address], [place], [address] . tel:[phone] Family History Family Member Type Diagnosis Age At Onset No Information Immunizations Vaccine Date Status Comments Afluria Qd administered Note: M [facility] bi-directional interface ; Source: Other Registry measles, mumps and rubella v irus vaccine administered Note: [facility] bi-direct ional interface ; Source: Other Registry Seasonal, quadrivalent, recombinant, injectable influenza vaccine, preservative free administered Note: [facility] bi-direct ional interface ; Source: Other Registry SARS-COV-2 (COVID-19) vaccin e, mRNA, spike protein, LNP, preservative free, 30 mcg/0.3mL dose administered Note: [facility] bi-direct ional interface ; Source: Other Registry SARS-COV-2 (COVID-19) vaccin e, mRNA, spike protein, LNP, preservative free, 30 mcg/0.3mL dose administered Note: [facility] bi-direct ional interface ; Source: Other Registry Afluria Qd administered Note: M [facility] bi-directional interface ; Source: Other Registry Seasonal, quadrivalent, recombinant, injectable influenza vaccine, preservative free administered Note: [facility] bi-direct ional interface ; Source: Other Registry influenza virus vaccine, unspecified formulation administered Note: [facility] bi-di rectional interface ; Source: Other Registry Afluria Qd administered Note: M [facility] bi-directional interface ; Source: Other Registry Afluria Qd administered Note: M [facility] bi-directional interface ; Source: Other Registry tetanus and diphtheria toxoi ds, adsorbed, preservative free, for adult use (5 Lf of tetanus toxoid and 2 Lf of diphtheria toxoid) administered Note: [facility] bi-direct ional interface ; Source: Other Registry Afluria Qd administered Note: M [facility] bi-directional interface ; Source: Other Registry Engerix-B administered Note: [facility] bi-d irectional interface ; Source: Other Registry Afluria Qd administered Note: M [facility] bi-directional interface ; Source: Other Registry influenza virus vaccine, unspecified formulation administered Note: [facility] bi-di rectional interface ; Source: Other Registry Engerix-B administered Note: [facility] bi-d irectional interface ; Source: Other Registry Engerix-B administered Note: [facility] bi-d irectional interface ; Source: Other Registry tetanus toxoid, reduced diphtheria toxoid, and acellular pertussis vaccine, adsorbed administered Note: [facility] b i-directional interface ; Source: Other Registry tetanus toxoid, reduced diphtheria toxoid, and acellular pertussis vaccine, adsorbed administered Note: [facility] b i-directional interface ; Source: Other Registry Payers Payer name Insurance type Covered democrat ID Gabriele tyson(s) [facility] [id number] Social History Type Description Quantity Date Captured Comments Sex Female Smoking Status No Information Chief Complaint And Reason For Visit No Information Reason For Referral Reason For Referral No Information History Of Present Illness Encounter Date Complaint History Of Prese nt Illness No Information Functional Status Date Functional Assessmen t No Information Instructions Date Instruction Gilles sheldon ERCP Assessments Type Assessment Date No Information Patient Care Teams Name Effective Dates (start - stop) Status Members No Information
--- OUTSIDE RECORDS SUMMARY | 2023-12-28 23:15 | XMS_ITS | Continuity of Care Document ---
Author Organization [facility] Address [address] [place] [address] Care Team Providers Care Rail Track Layer Name Role Phone Bacilio Henderson CRNA Unavailable Unavailable Procedures Procedure Date Percutaneous Image guided destruction pr ocedures B Percutaneous Image guided injection, ledy inage, or Percutaneous Image guided injection, ledy inage, or Percutaneous Image guided injection, ledy inage, or Percutaneous Image guided destruction pr ocedures B Advance Directives Directive Yes / No Effective Date File Name No Information Encounters Encounter Description Practice Location Reason(s) For Visit Diagnoses Date Provider Providers Copied on Encounter [facility], [address] [place], [place], [id number], [facility] No Information 4 Santiago Ribera. [address] [place] [address], [id number] , . tel: [phone] Referring Provider: Woody Michelle, [address] [place], [address] . tel:[phone] [facility], [address] [place] [address], [id number], [facility] No Information 4 Maurice Crow. [address] [facility], [place], [place], [id number] , . tel:[phone] Referring Provider: Woody Michelle, [address] [place], [address] . tel:[phone] [facility], [address] [facility] [place], [id number], [facility] [place] No Information 3 Santiago Ribera. [address], [facility] [place], [place], [place], [id number] , . tel: [phone] Referring Provider: Woody Ahn, [address] [place] [address] [place], [address] . tel:[phone] [facility], [address] [place] [address] [place], [id number], [facility] [place] No Information 3 Marshajhon Atiya. [address] [place], [place] [address], [place], [address], . tel: [phone] Referring Provider: Woody Michelle, [address] [place] [address], [address] . tel:[phone] [facility], [address] [place] [address] [place], [id number], [facility] No Information 3 Santiago Ribera. [address], [facility], [place], [place], [id number] , . tel: [phone] Referring Provider: Woody Michelle, [address] [place] [address], [address] . tel:[phone] Family History Family Member Type Diagnosis Age At Onset No Information Payers Payer name Insurance type Covered republican ID Gabriele tyson(s) [facility] [id number] Social History Type Description Quantity Date Captured [...]
--- OUTSIDE RECORDS SUMMARY | 2023-12-28 23:16 | XMS_ITS | Encounter Summary ---
Author Organization [facility] Address [address] [place] [address] Care Team Providers Care Box Nailer Name Role Phone Nikita Gamble MD Primary Care Provider [phone] Encounter Details Date Type Department Care Team (Late st Contact Info) Description 12/07/2023 Telephone [facility] [address] [place] [address]. [place], [place] [id number] Logan Parra PA-C [address] [place] [address] Social History Tobacco Use Types Packs/Day Years Used Date Smoking Tobacco: Never Smokeless Tobacco: Never Comments:N/A Alcohol Use Standard Drinks/Week Comments Not Currently 0 (1 standard drink = 0.6 oz pur e alcohol) 1 drink every 2 months Sex and Gender Information Value Date Recorded Sex Assigned at Female 10/30/2021 11:25 AM CDT Gender Identity Female 10/30/2021 11:25 AM CDT Sexual Orientation Straight 10/30/2021 11 :25 AM CDT documented as of this encounter Nursing Notes * Alex Deutsch - 12/07/2023 2:00 PM CDT [employer] medical necessity form completed. Clinical documentation (last chart notes and lab attached). Faxed back at [phone]. Placed for scanning. Alex Villalba RN 12/07/2023 2:00 PM documented in this encounter Plan of Treatment Upcoming Encounters Date Type Department Care Team (Late st Contact Info) Description 12/29/2023 8:30 AM CDT [facility] UroGynecology [address] [place] [address] Candice Coates MD [address] [facility] [address] [place] [address] documented as of this encounter Visit Diagnoses Not on filedocumented in this encounter Additional Health Concerns Infection Onset Date Last Indicated Resolved Time MRSA Comment:Beronica 12-29-14, 01/06/16 12/30/2014 12/30/2014 documented as of this encounter Care Teams Box Nailer Relationship Specialty Start Date End Date Nikita Gamble MD [address] [place] [address] PCP - General Family Practice 06/23/23 documented as of this encounter
--- OUTSIDE RECORDS SUMMARY | 2023-12-28 23:16 | XMS_ITS | Encounter Summary ---
Author Organization [facility] Address [address] [place] [address] Care Team Providers Care Lpn Medical Assistant Name Role Phone Nikita Gamble MD Primary Care Provider Reason for Visit * Auth/Cert (Routine) Specialty Diagnoses / Procedures Referred By Contac t Referred To Contact Diagnoses Postmenopausal bleeding . Procedures HYSTEROSCOPY WITH MYOSURE, polypectomy Referral ID Status Reason Start Date Expiration Date Visits Re quested Visits Authorized [id number] 1 1 Encounter Details Date Type Department Care Team (Late st Contact Info) Description 12/14/2023 10:04 AM CDT Anesthesia Event [facility] Operating Room [address] [place] [address] Sridhar Walter MD [address] [place] [address] Karmen Dorantes APRN, [facility] [address] [place] [address] Anesthesia Record Procedure Summary Procedure Name Responsible Anesthesiologist Anesthesia Start Time Anesthesia Stop Time HYSTEROSCOPY WITH TRUCLEAR, polypectomy, PAP SMEAR AND VULVAR BIOPSY Sridhar Walter MD 12/14/23 1004 12/14/23 1132 Events Date Time Event Comment 12/14/2023 1004 1004 An Start 1012 An Start Data 1035 An Local Anesthetic By Surge on 1050 An Labs Glucose 150 1102 An Local Anesthetic By Surge on 1126 an stop data 1132 Care Handoff Note I discusse d with the receiving nurse and we: 1) Identified the patient, le family member(s) or patient surrogate 2) Identified the responsible practitioner 3) Reviewed the pertinent medical history 4) Discussed the surgical/procedure course 5) Reviewed intra-op anesthesia management and issues during anesthesia 6) Set expectations for the post-procedure period 7) Allowed opportunity for questions and acknowledgement of understanding of report Electronically signed by Karmen Dorantes APRN, LOCK INSTALLER 1132 An [facility] transferre d. Meds Name Total propofol 10 mg/mL for procedural sedatio n (aka diPRIvan) 60 mg propofol (DIPRIVAN) 10 mg/mL IV 438.96 m g midazolam 2 mg/2 mL injection (aka VERSE D) 2 mg fentaNYL injection (aka SUBLIMAZE) 1.25 mL lidocaine 1% PF injection aka (XYLOCAINE ) 20 mg ondansetron injection (aka ZOFRAN) 4 mg ePHEDrine 5mg/ml in 0.9% sodium chloride syringe 10 mg lactated ringers infusion 600 mL * Agents Name 02 Delivery Device O2 N2O Air * Blood No blood administrations on file. Lines, Drains, and Airways Type Details Placement Removal Insulin Pump Yes (present with assessment); Abdomen (Comment); 12/28/23; 12412/14/23 0825 by 12/28/23 1246 by Lda, Discontinue Continuous Glucose Monitoring System Yes (present with assessment); Left thigh; 12/28/23; 12412/14/23 0825 by 12/28/23 1246 by Lda, Discontinue Peripheral IV Placement Date: 12/14/23; Placement Time: 0900; Inserted by?: RN; Size (Gauge): 20 G; Orientation: Distal, Left, Posterior; Site Prep: Chlorhexidine; Insertion attempts: 1; Blood draw with insertion?: yes; Patient Tolerance: Tolerated well; Removal Date: 12/14/23; Removal Time: 1245; Removal Reason: Patient discharged; Catheter Tip: Intact 12/14/23 0900 by Cornel Ventura RN 12/14/23 1245 by Debbie Meadows RN Incision/Surgical Site 12/14/23; 1043; # 1; No; Vagina; 12/28/23; 1246 12/14/23 1043 by Pina Sloan RN 12/28/23 1246 by Lda, Discontinue documented in this encounter Social History Tobacco Use Types Packs/Day Years [...] AM CDT documented as of this encounter Miscellaneous Notes * Anesthesia Postprocedure Evaluation - Sridhar Walter MD - 12/14/2023 2:10 PM CDT [facility] Anesthesia Post-op Note Patient: Marnie Duvall Post-Op Diagnosis: Pre-Op Diagnosis Codes: * Postmenopausal bleeding [N95.0] Procedure Performed: Procedure(s): HYSTEROSCOPY WITH TRUCLEAR, polypectomy, PAP SMEAR AND VULVAR BIOPSY - Wound Class: 2 CLEAN-CONTAMINATED Anesthesia Type: MAC Post-op vital signs: Vitals Value Taken Time BP 135/57 12/14/23 1215 Temp 98.2 ??F (36.8 ??C) 12/14/23 1215 Pulse 56 12/14/23 1224 Resp 14 12/14/23 1215 SpO2 99 % 12/14/23 1215 Vitals shown include unfiled device data. Pain Score: Preferred Pain Scale: word (Verbal Rating Pain Scale) Post-op assessment: Patient location: Phase 2 Airway Status: Patent Cardiovascular function: Satisfactory Hydration status: Satisfactory PONV: None Level of Consciousness: Awake Fully Participates Postop Assessment: Patient tolerated procedure well. Electronically signed by: Sridhar Walter MD 12/14/2023 2:10 PM * Anesthesia Preprocedure Evaluation - Sridhar Walter MD - 12/14/2023 9:32 AM CDT [facility] Anesthesia Pre-op Evaluation Procedure: HYSTEROSCOPY WITH MYOSURE, polypectomy, N/A HPI: 58 y.o. old female. Pre-Op Diagnosis Codes: * Postmenopausal bleeding [N95.0] Last Fluid Intake Time: 0600 (sips with meds) Last Fluid Intake Date: 12/14/23 Last Food Intake Date: 12/13/23 Last Food Intake Time: 2100 Allergies Allergen Reactions ??? Aleve [Naproxen] Gastrointestinal Past Medical History: Diagnosis Date ??? Chronic kidney disease, unspecified (HRC) ??? Depression ??? Diabetes (HRC) type I diagnosed at age 8 ??? History of nephrectomy right ??? Mitral valve prolapse (HRC) ??? Sleep apnea, unspecified Patient Active Problem List Diagnosis ??? MRSA (methicillin resistant Staphylococcus aureus) ??? Anxiety (HRC) ??? Benign essential hypertension (HRC) ??? Depression with anxiety (HRC) ??? Diabetic ketoacidosis without coma associated with type 1 diabetes mellitus (HRC) ??? Diabetic peripheral neuropathy associated with type 1 diabetes mellitus (HRC) ??? Generalized tonic-clonic seizure (HRC) ??? History of pulmonary embolism ??? Knee osteoarthritis ??? Need for SBE (subacute bacterial endocarditis) prophylaxis ??? Obstructive sleep apnea syndrome ??? S/p nephrectomy ??? Latent tuberculosis diagnosed by blood test ??? Type 1 diabetes mellitus with diabetic neuropathy, unspecified (HRC) ??? Hypertensive chronic kidney disease with stage 1 through stage 4 chronic kidney disease, or unspecified chronic kidney disease (HRC) ??? Major depressive disorder, recurrent, mild (HRC) ??? Type 1 diabetes mellitus without complications (HRC) ??? Bilateral leg edema ??? Urge incontinence of urine ??? Anemia ??? Stage 3b chronic kidney disease (HRC) ??? Obesity (BMI 30-39.9) (HRC) ??? Type 1 diabetes mellitus with diabetic nephropathy (HRC) ??? Postmenopausal bleeding Past Surgical History: Procedure Laterality Date ??? CATARACT REMOVAL Bilateral ??? Laparoscopic cholecystectomy 12/2021 complicated by postop sepsis and had an abdominal washout due to remaining stones ??? 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 TOTAL KNEE ARTHROPLASTY Bilateral Outpatient Medications as of 12/14/2023 Medication Sig ??? amoxicillin (AMOXIL) 500 MG capsule Take 4 Capsules (2,000 mg) by mouth every 24 hours as needed. ??? aspirin 81 MG chewable tablet Take 1 Tab by mouth daily. Indications: Heart protection ??? Blood Glucose Monitoring Suppl ([email or web address] CONTOUR MONITOR) W/DEVICE KIT kit As instructed ??? blood glucose (MARTIN CONTOUR TEST) strip 4 x daily. Pharmacy dispense brand based on insurance. ??? calcium carbonate-vitamin D 600-400 MG-UNIT tablet Take 1 Tablet by mouth daily. ??? cholecalciferol (VITAMIND3) 25 MCG (1000 UT) capsule Take 1 Capsule (1,000 Units) by mouth daily. ??? citalopram (AKA CELEXA) 40 MG tablet Take 1 Tab by mouth daily. Indications: Depression ??? clobetasol (TEMOVATE) 0.05 % ointment Rub into the nails and cuticles nightly before bed ??? cyclobenzaprine (FLEXERIL) 10 MG tablet Take 1 Tablet (10 mg) by mouth every 8 hours. ??? Glyde G7 Sensor continuous blood glucose device Use for continuous glucose monitoring. Change sensor every 10 days. 90 day supply ??? FIBER ADULT GUMMIES OR Indications: 3 gummies po daily in morning ??? furosemide (LASIX) 40 MG tablet Take 1 Tablet (40 mg) by mouth daily. ??? GLUCAGON EMERGENCY 1 MG Kit SMARTSI Milligram(s) SUB-Q Once PRN ??? insulin glargine (TOUJEO SOLOSTAR) 300 UNIT/ML injection Inject 51 Units subcutaneously every evening. Note increase in dose Indications: Insulin- Dependent Diabetes ??? lancets ([email or web address] MICROLET LANCETS) Use as directed. Pharmacy dispense brand based on insurance. ??? levothyroxine (SYNTHROID) 150 MCG tablet Take 1 tablet daily for 3 days of the week. Take at least one hour before or two hours after meal. ??? levothyroxine (SYNTHROID) 175 MCG tablet Take 1 tablet day for 4 days of the week. Take at least one hour before or two hours after meal. ??? lisinopril (AKA ZESTRIL) 10 MG tablet Take 1 Tab by mouth daily. Indications: High blood pressure & Diabetes ??? methocarbamol (ROBAXIN) 500 MG tablet Take 1 Tablet (500 mg) by mouth three times a day as needed. ??? metroNIDAZOLE (METROCREAM) 0.75 % cream Apply topically two times a day. ??? NOVOLOG 100 UNIT/ML injection (vial) Inject 125 Units subcutaneously daily. ??? omeprazole (AKA PRILOSEC) 20 MG capsule Take 1 tablet by mouth two times a day before meals for13 days Indications: H-pylori infect ??? ondansetron (AKA ZOFRAN) 4 MG disintegrating tablet Take 1 Tablet (4 mg) by mouth every 8 hoursas needed for Nausea. ??? oxybutynin (DITROPANXL) 10 MG 24 hour release tablet Take 1 Tablet (10 mg) by mouth two times aday. ??? oxyCODONE (AKA ROXICODONE) 5 MG immediate release tablet Take 1-2 Tabs by mouth every 4 hours as needed for Pain. Indications: Acute Pain ??? pregabalin (LYRICA) 300 MG capsule Take 1 Capsule (300 mg) by mouth two times a day. ??? rizatriptan (MAXALT-MULTI OPERATION MACHINE OPERATOR) 10 MG disintegrating tablet Take 1 Tablet (10 mg) by mouth as needed. ??? topiramate (TOPAMAX) 100 MG tablet Take 1 Tablet (100 mg) by mouth daily. ??? triamcinolone acetonide (KENALOG) 0.1 % paste apply topically to affected dental area three times a day; use after food and/or drink and/or oral hygiene* ??? valACYclovir (VALTREX) 500 MG tablet Take 1 Tablet (500 mg) by mouth daily as needed. Facility-Administered Medications as of 12/14/2023 Medication Dose Route Frequency ??? lactated ringers infusion Intravenous Continuous ??? lactated ringers infusion Intravenous Continuous Labs: Lab Results Component Value Date/Time SODIUM 135 (L) 08/05/2023 02:00 PM K 4.7 08/05/2023 02:00 PM CHLORIDE 102 08/05/2023 02:00 PM BUN 24 08/05/2023 02:00 PM CREATININE 1.62 (H) 08/05/2023 02:00 PM GLUCOSE 93 08/05/2023 02:00 PM Lab Results Component Value Date/Time WBC 6.9 06/23/2023 12:12 PM HGB 10.4 (L) 06/23/2023 12:12 PM HCT 31.6 (L) 06/23/2023 12:12 PM PLTS 270 06/23/2023 12:12 PM INR (no units) Date Value 04/30/2015 1.1 Reason a test was not performed: Post-menopausal. Blood Bank: No results found for: ABO, ABSCR EKG: Date of last EK04/27/15 ECG 12-LEAD STAT (EKG) Result Value Ref Range Ventricular Rate 73 BPM Atrial Rate 73 BPM P-R Interval 144 ms QRS Duration 86 ms QT 402 ms QTc 442 ms P [place] 59 degrees R [place] 36 degrees T [place] 67 degrees Physical Exam: BP (!) 143/57 Pulse (!) 53 Temp 97.2 ??F (36.2 ??C) Resp 16 Ht 5' 11 (1.803 m) Wt 108.9 kg (240 lb) SpO2 97% BMI 33.47 kg/m?? Assessment/Plan: Review of Systems Patient does not have GERD. Patient is not a current smoker. The patient denies alcohol use. Patient denies any recent URI. History of PONV: No. History of motion sickness: No. Patient denies any personal or family history of anesthesia complications. NPO Status: Acceptable. Exam Mental Status: Alert and oriented. Mallampati score: II (Two). Mouth opening: Normal Thyromental Distance: > 3 finger breadths and Normal Neck Extension: Full Neck Circumference > 40 cm?: No Current airway assessment:Normal Dentition: Dentures, missing and chipped. Cardiac Exam: Regular rate and rhythm. Respiratory Exam: Breath sounds clear to auscultation Assessment ASA Status: 3 . Plan Anesthesia type: MAC Induction: Intravenous and Propofol Maintenance: TIVA PONV Risk Score Adult: 2 Anesthetic plan, risks, benefits and alternatives discussed with the patient who agrees to the anesthesia treatment plan. She prefers to keep her partial denture in for the procedure. Discussed risk of damage. She is getting full permanent implants next week and is not concerned about damaging the partial. The patient and/or their sales representative wire rope were notified about the potential risks of damage to the lips, teeth, dental devices, mouth and airway. H&P Reviewed and Patient examined, no change observed IV access Antibiotics per surgery Electronically signed by: Sridhar Walter MD 12/14/2023 9:32 AM documented in this encounter Plan of Treatment Upcoming Encounters Date Type Department Care Team (Late st Contact Info) Description 12/29/2023 8:30 AM CDT [facility] UroGynecology [address] [place] [address] Cadnice Coates MD [address] [facility] [address] [place] [address] documented as of this encounter Visit Diagnoses Not on filedocumented in this encounter Administered Medications Inactive Administered Medications - up to 3 most recent administrations Medication Order MAR Action Action Date Dose Rate Site ePHEDrine 5 mg/mL injection Intravenous, Starting on Tue12/14/23 at 1040, Until Tue12/14/23 at 1132 Given 12/14/2023 10:48 AM CDT 5 mg Given 12/14/2023 10:40 AM CDT 5 mg fentaNYL (SUBLIMAZE) injection Intravenous, Starting on Tue12/14/23 at 1012, Until Tue12/14/23 at 1132 Given 12/14/2023 10:38 AM CDT 0.25 mL Given 12/14/2023 10:18 AM CDT 0.5 mL Given 12/14/2023 10:12 AM CDT 0.5 mL lactated ringers infusion Intravenous, Starting on Tue12/14/23 at 1004 Started 12/14/2023 10:04 AM CDT lidocaine PF (XYLOCAINE) 1 % injection Intravenous, Starting on Tue12/14/23 at 1013 Given 12/14/2023 10:13 AM CDT 20 mg midazolam (VERSED) injection Intravenous, Starting on Tue12/14/23 at 1004, Until Tue12/14/23 at 1132 Given 12/14/2023 10:04 AM CDT 2 mg ondansetron (ZOFRAN) injection Intravenous, Starting on Tue12/14/23 at 1117, Until Tue12/14/23 at 1132 Given 12/14/2023 11:17 AM CDT 4 mg propofol (DIPRIVAN) 10 mg/mL injection Intravenous, Starting on Tue12/14/23 at 1015, Until 9/18/24 at 1132 Started 12/14/2023 10:15 AM CDT 100 mcg/kg/min 42.48 mL/hr propofol (DIPRIVAN) 10 mg/mL injection Intravenous, Starting on Tue12/14/23 at 1015, Until Tue12/14/23 at 1132 Given 12/14/2023 10:21 AM CDT 10 mg Given 12/14/2023 10:15 AM CDT 50 mg documented in this encounter Additional Health Concerns Infection Onset Date Last Indicated Resolved Time MRSA Comment:Beronica --15, 01/06/16 12/30/2014 12/30/2014 documented as of this encounter Care Teams Lpn Medical Assistant Relationship Specialty Start Date End Date Nikita Gamble MD [address] [place] [address] PCP - General Family Practice 06/23/23 documented as of this encounter
--- OUTSIDE RECORDS SUMMARY | 2023-12-28 23:16 | XMS_ITS | Encounter Summary ---
Author Organization [facility] Address [address] [place] [address] Care Team Providers Care Mental Health Technician Name Role Phone Nikita Gamble MD Primary Care Provider Encounter Details Date Type Department Care Team (Late st Contact Info) Description 04/28/2015 Correspondence [facility] Radiology [address] [place] [address] Radiology, Provider MRI SAFETY SHEET AND COMPATIBILITY [...] Contact Info) Description 12/29/2023 8:30 AM CDT [facility] UroGy[facility]cology [address] [place] [address] Candice Coates MD [address] [phone] documented as of this encounter Visit Diagnoses Not on filedocumented in this encounter Additional Health Concerns Infection Onset Date Last Indicated Resolved Time MRSA Comment:Beronica 10-4-15, 01/06/16 12/30/2014 12/30/2014 documented as of this encounter Care Teams Mental Health Technician Relationship Specialty Start Date End Date Nikita Gamble MD [address] [place] [address] PCP - General Family Practice 06/23/23 documented as of this encounter
--- OUTSIDE RECORDS SUMMARY | 2023-12-28 23:16 | XMS_ITS | Encounter Summary ---
Author Organization [facility] Address [address] [place] [address] Care Team Providers Care Graphic Design Specialist Name Role Phone Nikita Gamble MD Primary Care Provider [phone] Reason for Visit * Reason Comments Surgery Scheduling Encounter Details Date Type Department Care Team ([facility] st Contact Info) Description 10/21/2023 [facility] Obstetrics and Gynecology [address] [place] [address]. [place], [place] [phone] Carol Phillips MD [address] [place] [phone] Surgery Scheduling Social History Tobacco Use Types Packs/Day Years [...] as of this encounter Nursing Notes * Merlene Cornell - 10/21/2023 12:49 PM CDT Surgery scheduled at [facility] on 12/14/23 for HYSTEROSCOPY WITH MYOSURE, polypectomy. Pre-op scheduled. Brochure sent via [employer]. Merlene Cornell 10/21/2023, 12:50 PM. documented in this encounter Plan of Treatment Upcoming Encounters Date Type Department Care Team (Late st Contact Info) Description 12/29/2023 8:30 AM CDT [facility] UroGynecology [address] [place] [address] Candice Coates MD 2635 [facility] [address] [place] [address] documented as of this encounter Visit Diagnoses Not on filedocumented in this encounter Additional Health Concerns Infection Onset Date Last Indicated Resolved Time MRSA Comment:Beronica 12-29-14, 01/06/16 12/30/2014 12/30/2014 documented as of this encounter Care Teams Graphic Design Specialist Relationship Specialty Start Date End Date Nikita Gamble MD [address] [place] [address] PCP - General Family Practice 06/23/23 documented as of this encounter
--- OUTSIDE RECORDS SUMMARY | 2023-12-28 23:16 | XMS_ITS | Encounter Summary ---
Author Organization [facility] Address [address] [place] [address] Care Team Providers Care Glassware Finisher Name Role Phone Nikita Gamble MD Primary Care Provider [phone] Encounter Details Date Type Department Care Team (Late st Contact Info) Description 10/07/2023 Telephone [facility] [address] [facility] [place], [place] [phone] Candice Coates MD [facility] [address] [place], [place] [phone] Social History Tobacco Use Types Packs/Day Years [...] as of this encounter Nursing Notes * Ewa Dutton RN - 10/07/2023 12:24 PM CDT Can see her 10/16 at 1130. Could also offer 10/09 at 1245, per Dr. Coates. Apologize for inconvenience. Ewa Dutton RN 10/07/2023, 12:24 PM * Khushbu Newman - 10/07/2023 10:26 AM CDT Patient calling regarding today's appt. States having been given the wrong address for appt and came to [address] [place] [address] and was informed she was at the wrong clinic after trying to find where Dr. Gallego office was. Calling to see if theres anyway to be seen later today? She apologized profusely with [place] team and expressed flustered due to the mix up and the road construction. Per Patient chart, Patient [place] [email or web address]. Please contact patient and advise Khushbu Newman 10/07/2023, 10:31 AM documented in this encounter Plan of Treatment Upcoming Encounters Date Type Department Care Team (Late st Contact Info) Description 12/29/2023 8:30 AM CDT [facility] UroGynecology [address] [place] [address] Candice Coates MD [facility] [address] [place] [address] documented as of this encounter Visit Diagnoses Not on filedocumented in this encounter Additional Health Concerns Infection Onset Date Last Indicated Resolved Time MRSA Comment:Beronica 10-4-15, 01/06/16 12/30/2014 12/30/2014 documented as of this encounter Care Teams Glassware Finisher Relationship Specialty Start Date End Date Nikita Gamble MD [address] [place] [address] PCP - General Family Practice 06/23/23 documented as of this encounter
--- OUTSIDE RECORDS SUMMARY | 2023-12-28 23:16 | XMS_ITS | Encounter Summary ---
[facility] Organization [facility] Address [address] [place] [address] Care Team Providers Care Financial Sales Professional Name Role Phone Nikita Gamble MD Primary Care Provider [phone] Encounter Details Date Type Department Care Team (Late Contact Info) Description 10/27/2023 3:00 PM CDT Lab Visit [facility] Laboratory [address] [facility]. [place], [place] [id number] Routine medical exam Social History Tobacco Use Types Packs/Day Years [...] [facility] [address] [place] [address] Candice Coates MD [address] [address] documented as of this encounter Procedures Procedure Name Priority Date/Time Associated Diagnosis Comments DNA ANALYSIS DISCRETE SEQUENCE VARIATION PANEL (BLOOD) Routine 10/27/2023 3:14 PM CDT Routine medical exam documented in this encounter Results * DNA Analysis Discrete Sequence Variation Panel (Blood) (Initial) (10/27/2023 3:14 PM CDT) Date Sample Received at Testing Lab 10/29/2023 12/28/2023 4:09 PM CDT [place] Familial Hypercholesterolemia Not Detected 12/28/2023 4:09 PM CDT [place] Comment: Pathogenic variant not detected. Genes Tested: BRCA1, BRCA2, MLH1, MSH2, MSH6, PMS2, EPCAM, APOB, LDLR, LDLRAP1, PCSK9 Test Description: [facility] Tier One Population Screen is a screening test that analyzes 11 genes related to hereditary breast and ovarian cancer (HBOC) syndrome, Pleitez syndrome, and familial hypercholesterolemia. This test only reports clinically significant pathogenic and likely pathogenic variants, unlike diagnostic testing, which also reports variants of uncertain significance (VUS). In addition, analysis of the PMS2 gene excludes exons 11-15, which overlap with a known pseudogene (PMS2CL). Disclaimer: This test was developed and validated by [facility]. This test has not been cleared or approved by the [place] Food and Drug Administration (FDA). The [facility] laboratory is accredited by the [employer] [employer] (CAP) and certified under the Clinical Laboratory Improvement Amendments (CLIA #: [id number]) to perform high-complexity clinical tests. This test is used for clinical purposes. It should not be regarded as investigational or for research. Methods and Limitations: Extracted DNA is enriched for targeted regions and then sequenced using the [facility] Exome+ (R) assay on an Illumina DNA sequencing system. Data is then aligned to a modified version of GRCh38 and all genes are analyzed using the MIREYA transcript and MIREYA Plus Clinical transcript, when available. Small variant calling is completed using a customized version of [employer]'s SMICq software, augmented by a proprietary small variant caller for difficult variants. Copy number variants (CNVs) are then called using a proprietary bioinformatics pipeline based on depth analysis with a comparison to similarly sequenced samples. Analysis of the PMS2 gene is limited to exons 1-10; exons 11-15. The interpretation and reporting of variants in APOB, PCSK9, and LDLR is specific to familial hypercholesterolemia; variants associated with hypobetalipoproteinemia are not included. Interpretation is based upon guidelines published by the [place] [employer] (ACMG) and the Association for Molecular Pathology (AMP) or their modification by [employer] Variant Curation Expert Panels when available. Interpretation is limited to the transcripts indicated on the report and +/- 10 bp into intronic regions, except as noted below. [facility] variant classifications include pathogenic, likely pathogenic, variant of uncertain significance (VUS), likely benign, and benign. Only variants classified as pathogenic and likely pathogenic are included in the report. All reported variants are confirmed through secondary manual inspection of DNA sequence data or orthogonal testing. Risk estimations and management guidelines included in this report are based on analysis of primary literature and recommendations of applicable professional societies, and should be regarded as approximations.Based on validation studies, this assay delivers > 99% sensitivity and specificity for single nucleotide variants and insertions and deletions (indels) up to 20 bp. Larger indels and complex variants are also reported but sensitivity may be reduced. Based on validation studies, this assay delivers > 99% sensitivity to multi-exon CNVs and > 90% sensitivity to single-exon CNVs. This test may not detect variants in challenging regions (such as short tandem repeats, homopolymer runs, and segment duplications), sub-exonic CNVs, chromosomal aneuploidy, or variants in the presence of mosaicism. Phasing will be attempted and reported, when possible. Structural rearrangements such as inversions, translocations, and gene conversions are not tested in this assay unless explicitly indicated. Additionally, deep intronic, promoter, and enhancer regions may not be covered. It is important to note that this is a screening test and cannot detect all disease-causing variants. A negative result does not guarantee the absence of a rare, undetectable variant in the genes analyzed; consider using a diagnostic test if there is significant personal and/or family history of one of the conditions analyzed by this test. Any potential incidental findings outside of these genes and conditions will not be identified, nor reported. The results of a genetic test may be influenced by various factors, including bone marrow transplantation, blood transfusions, or in rare cases, hematolymphoid neoplasms. Gene Specific Notes: BRCA1: sequencing analysis extends to CDS +/-20 bp; BRCA2: sequencing analysis extends to CDS +/-20 bp. EPCAM: analysis is limited to CNV of exons 8-9; MLH1: analysis includes CNV of the promoter. Sequencing Location: Sequencing done at [facility] [address] [place] [address], [address], [place] [address] ([facility]# [id number]) Designation: Venkata Ma, PhD, [facility] Email: [email or web address] Breast and Ovarian Cancer Syndrome Not Detected 12/28/2023 4:09 PM CDT [facility] Comment:Pathogenic variant n ot detected. Pleitez Syndrome Not Detected 12/28/2023 4:09 PM CDT [facility] Comment:Pathogenic variant n ot detected. Blood or Saliva VENOUS BLOOD SPECIMEN / Unknown 10/27/2023 3:14 PM CDT 10/27/2023 3:14 PM CDT Everardo Go MD LAB_1 [facility] [address] [facility] [address] [place] [address] documented in this encounter Visit Diagnoses Diagnosis Routine medical exam Routine general medical examination at a health care facility documented in this encounter Additional Health Concerns Infection Onset Date Last Indicated Resolved Time MRSA Comment:Beronica 12-29-14, 01/06/16 12/30/2014 12/30/2014 documented as of this encounter Care Teams Financial Sales Professional Relationship Specialty Start Date End Date Nikita Gamble MD [address] [place] [address] PCP - General Family Practice 06/23/23 documented as of this encounter
--- OUTSIDE RECORDS SUMMARY | 2023-12-28 23:16 | XMS_ITS | Encounter Summary ---
Author Organization [facility] Address [address] [place] [address] Care Team Providers Care Senior Gamemaster Name Role Phone Nikita Gamble MD Primary Care Provider Reason for Referral * Procedure/Equipment (Routine) - Incomplete Specialty Diagnoses / Procedures Referred By Contac t Referred To Contact Diagnoses Postmenopausal bleeding Procedures Case Request OR - Gynecologic Surg: HYSTEROSCOPY WITH MYOSURE, polypectomy Carol Phillips MD [address] [place] [address] Referral ID Status Reason Start Date Expiration Date V isits Requested Visits Authorized [id number] Incomplete 10/17/2023 01/15/2025 1 1 Reason for Visit * Procedure/Equipment (Routine) - Incomplete Specialty Diagnoses / Procedures Referred By Contac t Referred To Contact Diagnoses Postmenopausal bleeding Procedures OBGYN Pelvic/Composition [place] [address] [place] [address] Referral ID Status Reason Start Date Expiration Date V isits Requested Visits Authorized [id number] Incomplete 10/17/2023 01/15/2025 1 1 Encounter Details Date Type Department Care Team ([facility] Contact Info) Description 10/17/2023 1:00 PM CDT Ancillary Procedure [facility] OB [facility] [address] [place] [address] [place] [address] [place] [address] Postmenopausal bleeding (Primary Dx) Social History Tobacco Use Types [...] Contact Info) Description 12/29/2023 8:30 AM CDT [facility] [address] [place] [id number] Candice Coates MD [address] [place] [address] documented as of this encounter Procedures Procedure Name Priority Date/Time Associated Diagnosis Comments OBGYN PELVIC/FABRICATOR INDUSTRIAL FURNACE ULTRASOUND Routine 10/17/2023 1:39 PM CDT Postmenopausal bleeding documented in this encounter Results * (ABNORMAL) OBGYN Pelvic/Composition Floor Layer Ultrasound (10/17/2023 1:39 PM CDT) Uterus AP Diameter (Height) 2.60 cm EXTERNAL RESULTS Uterus Longitudinal Diameter (Length) 6.40 cm EXTERNAL RESULTS Uterus Transverse Diameter (Width) 3.50 cm EXTERNAL RESULTS Uterus Volume 30.49 ml CONSULTING SME AL RESULTS Endometrium Thickness 6.10 mm EXTERNAL RESULTS Left Ovary Perpendicular Diameter (Height) 1.00 cm EXTERNAL RESULTS Left Ovary Longitudinal Diameter (Length) 1.80 cm EXTERNAL RESULTS Left Ovary Hilum-Cortex Diameter (Width) 1.50 cm EXTERNAL RESULTS Left Ovary Volume 1.41 ml EX TERNAL RESULTS Right Ovary Perpendicular Diameter (Height) 1.30 cm EXTERNAL RESULTS Right Ovary Longitudinal Diameter (Length) 1.60 cm EXTERNAL RESULTS Right Ovary Hilum-Cortex Diameter (Width) 1.40 cm EXTERNAL RESULTS Right Ovary Volume 1.52 ml E XTERNAL RESULTS Anatomical Region Laterality Modality Pelvis Ultrasound Narrative 10/17/2023 2:10 PM CDT Table formatting from the original result was not included. FABRICATOR INDUSTRIAL FURNACE Ultrasound Exam performed on: ??10/17/2023 Referring provider: Candice Coates MD Referring clinic: [facility] Clinical indications: Postmenopausal bleeding Vp Production(s) initials: The pelvic organs are imaged using: both transvaginal and transabdominal transducers to better visualize the pelvic anatomy. Today's ultrasound was compared to previous report from: 04/27/2015 Measurements and comments Uterus: Length Height Width 6.40 2.60 3.50 cm Position: ??anteverted Comments: ??symmetrical Cervix and lower uterine segment are: Normal Myometrium: homogeneous Saline infusion sonohysterogram: yes. ??Indication: ?? thickened endometrium and abnormal bleeding. Following informed consent, the cervix was visualized and prepped with betadine. An insemination catheter was placed into the endometrial cavity and saline was infused while watching with the transvaginal probe. Findings were: ?? echogenic mass protruding into endometrial cavity 1.5 x 0.5 x 1.1 cm, location: anterior, broad based anterior endometrium 1.0 mm posterior endometrium 0.9 mm Endometrium: 1.9 mm, post SIS Endometrium: 6.10 mm, pre SIS Right ovary: ?? Length Height Width Volume 1.60 1.30 1.40 cm 1.52 ml Comments: appears normal Left ovary: Length Height Width Volume 1.80 1.00 1.50 cm 1.41 ml Comments: appears normal Adnexa: ??no masses seen Peritoneal fluid: absent Other procedures done: none Impression: Anteverted uterus with endometrium measuring 6.1mm. ??On saline infusion sonohysterography there is an echogenic focus with broad based attachment to the anterior uterine wall and vascular stalk consistent with endometrial polyp. ??Endometrium is otherwise smooth and regular measuring 1.9mm post SIS. Normal appearing ovaries bilaterally. Plan: These findings were reviewed with the patient. Marnie will follow up with referring provider. ??Recommend consultation with steam setter for hysteroscopy. ??Patient requested expedited surgery scheduling therefore surgical orders were placed. ?? Carol Phillips MD Candice Coates MD RAD documented in this encounter Visit Diagnoses Diagnosis Postmenopausal bleeding- Primary documented in this encounter Additional Health Concerns Infection Onset Date Last Indicated Resolved Time MRSA Comment:Justinelena 12-29-14, 01/06/16 12/30/2014 12/30/2014 documented as of this encounter Care Teams Senior Gamemaster Relationship Specialty Start Date End Date Nikita Gamble MD [address] [place] [address] PCP - General Family Practice 06/23/23 documented as of this encounter
--- OUTSIDE RECORDS SUMMARY | 2023-12-28 23:16 | XMS_ITS | Encounter Summary ---
[facility] Address [address] [place] [id number] Care Team Providers Care Pediatric Physician Assistant Name Role Phone Nikita Gamble MD Primary Care Provider [phone] Reason for Referral * Procedure/Equipment (Routine) - Incomplete Specialty Diagnoses / Procedures Referred By Contac t Referred To Contact Diagnoses Postmenopausal bleeding Procedures OBGYN Pelvic/Greenhouse Specialist Ultrasound Candice Coates MD [address] [place] [id number] Referral ID Status Reason Start Date Expiration Date V isits Requested Visits Authorized [id number] Incomplete 10/17/2023 01/15/2025 1 1 Reason for Visit * Reason Comments CONSULT UUI, several years, worsening. Hx observed rectocele, poss cystocele. Endorses GAURAV, nocturia, incomplete bladder emptying, BM concerns. Denies baseline urgency/frequency, UI w/o sensation, vaginal bulging. Encounter Details Date Type Department Care Team (Late st Contact Info) Description 10/17/2023 10:00 AM CDT Office Visit [facility] [address] [place] [id number] Candice Coates MD [address] [place] [phone] Postmenopausal bleeding (Primary Dx); OAB (overactive bladder); Urge incontinence; Mixed stress and urge urinary incontinence; Urinary retention Social History Tobacco Use Types Packs/Day Years [...] this encounter Patient Instructions * Patient Instructions* Niurka Cook, OPTOMETRY ASSISTANT - 10/17/2023 10:00 AM CDT URODYNAMIC TESTING INFORMATION AND PREPARATION Your physician has ordered Urodynamic testing in order to evaluate your urinary function. This testing is performed at the Urology clinic at [address] [place] [address]. During this test we will try to reproduce your bladder symptoms. The information gathered from the testing will allow yourphysician to determine the cause of your urinary problem(s) and the best treatment for you. Urodynamics testing is performed by our nursing staff. Our female nurse, Genet, performs Urodynamics testing on Tuesdays and . Our male nurse, Juan, performs Urodynamics testing on Wednesdays. Please contact the Urology department at [phone] to schedule your Urodynamics appointment and a follow-up appointment with Dr. Coates to review the Urodynamics results. INSTRUCTIONS FOR THE DAY OF TESTING You should come to your appointment with a Moderately full bladder. You will be asked to sign an informed consent at the time of your procedure. A parent or legal guardian must accompany a child or anyone not capable of giving informed consent for themselves. You may eat and drink before this test. You may take your normal medications, except anticholinergic. If you are taking an anticholinergic (oxybutynin, ditropan, sanctura, vesicare, detrol, myrbetriq, trospium chloride, solifenacin succinate, mirabegron), please stop 3 days before testing or your testing may be cancelled. Urodynamic testing takes approximately 1?? hours. For further information regarding urodynamics testing (also called cystometry) please go to [email or web address] and type in the search box ???urodynamics?? . If there are special needs that you have or questions you need answered, please contact [phone]. INSTRUCTIONS ON HOW TO COMPLETE YOUR BLADDER DIARIES A bladder diary is intended to be a record of your fluid intake and urinary output over a two-day period. The two days need not be consecutive, but each should cover a complete 24 hour period of time. Completing the bladder diaries is an extremely important step in the urodynamic evaluation. It is possible that the testing could be canceled if the diaries are not prepared. Record every void separately using either measuring cups or other pre-measured containers. It is acceptable to record your voids in measurements of millimeters, ounces or cups. Precisely record the date and time that each of your voids occurred. If you cath yourself: Please record each time you cath and the amount. If you wear diapers or pads: Please record each time he change and if the diaper/pad was damp, moderately wet or soaked. Should you leak between, before or after a void, record the incident. Did the leak happen during a stress activity (i.e. coughing, exercise), or did it happen without explanation or provocation (i.e. hearing running water, walking to the bathroom)? Did you have to change your pad or clothing? Record this information. If the leak or void occurred with a degree of urgency please rate urgency as mild, moderate or severe. Was your stream difficult to start? Was the force of the stream strong, fair or poor? Did you feel empty after your void? Did bladder or pelvic pain occur before, during or after your void? The more completely and carefully your bladder diaries are filled out, the more information about your voiding habits will be available to your physician and the urodynamics forensic technician performing theevaluation. Thank you for your cooperation Bladder Diary Date: Time Drinks Urine Accidental Leaks Did you feel an urge to go? What were you doing at the time of leaking? What kind? (water, pop, milk, etc) How Much? How many times? How much (oz, cc, or ml)? How much? Camden one Camden one (sneezing, exercising, having sex, lifting, etc.) Midnight -1 am Sm med lg Yes No 1-2 am Sm med lg Yes No 2-3 am Sm med lg Yes No 3-4 am Sm med lg Yes No 4-5 am Sm med lg Yes No 5-6 am Sm med lg Yes No 6-7 am Sm med lg Yes No 7-8 am Sm med lg Yes No 8-9 am Sm med lg Yes No 9-10 am Sm med lg Yes No 10-11 am Sm med lg Yes No 11am -12pm Sm med lg Yes No 12-1 pm Sm med lg Yes No 1-2 pm Sm med lg Yes No 2-3 pm Sm med lg Yes No 3-4 pm Sm med lg Yes No 4-5 pm Sm med lg Yes No 5-6 pm Sm med lg Yes No 6-7 pm Sm med lg Yes No 7-8 pm Sm med lg Yes No 8-9 pm Sm med lg Yes No 9-10 pm Sm med lg Yes No 10-11 pm Sm med lg Yes No 11pm - midnight Sm med lg Yes No Bladder Diary Date: Time Drinks Urine Accidental Leaks Did you feel an urge to go? What were you doing at the time of leaking? What kind? (water, ect) How Much? How many times? How much? How much? Camden one Camden one (sneezing, exercising, having sex, lifting, etc.) Midnight -1 am Sm med lg Yes No 1-2 am Sm med lg Yes No 2-3 am Sm med lg Yes No 3-4 am Sm med lg Yes No 4-5 am Sm med lg Yes No 5-6 am Sm med lg Yes No 6-7 am Sm med lg Yes No 7-8 am Sm med lg Yes No 8-9 am Sm med lg Yes No 9-10 am Sm med lg Yes No 10-11 am Sm med lg Yes No 11am -12pm Sm med lg Yes No 12-1 pm Sm med lg Yes No 1-2 pm Sm med lg Yes No 2-3 pm Sm med lg Yes No 3-4 pm Sm med lg Yes No 4-5 pm Sm med lg Yes No 5-6 pm Sm med lg Yes No 6-7 pm Sm med lg Yes No 7-8 pm Sm med lg Yes No 8-9 pm Sm med lg Yes No 9-10 pm Sm med lg Yes No 10-11 pm Sm med lg Yes No 11pm - midnight Sm med lg Yes No Please call [phone] for follow up and new patient scheduling for [facility] Urogynecology. Instructions Your follow up appointment will be scheduled with one of the Urogynecology care team members. This may be one of our physician assistants. They are always in direct communication with your physician who remains responsible for your Urogynecology care at [facility]. Lab or Imaging Results If labs were ordered, you will receive the results via your [employer]) account if you have one. Results are automatically released to your [employer]) account once available. This means that you may see your results before we have had a chance to review them. After the results become available, comments from our team are typically posted to your [employer]) account within 2-5 business days. We usually wait until all or nearly all of the lab results have returned and make a onetime comment rather than comment on each lab result individually. Please donot send a [employer] message requesting follow up/advice on labs or imaging that you have reviewed if we have not yet left comments for you. For Xray, CT test, and Ultrasound results, unless specifically noted, the results of these tests will be discussed at your next visit with your provider. Results will not be reviewed over the phone. If test results require immediate action, we will contact you. If you do not have a [employer] account, results typically arrive by mail within 4-6 weeks. Medication Refills For medication refills you may need to be seen once a year. For your specific follow up please discuss with your provider. If you need refills, please contact your pharmacist. They will send a refill request for us to review. Please allow 3-5 business days for us to process all refill requests. Thank you for continuing to trust us with your care. We are your partner. Our Urogynecology team is always striving to improve your experience with us. You may randomly be selected to receive a survey via email, text or phone. The survey is 9 questions long and takes less than one minutes to complete. We would greatly appreciate your feedback. Thank you! Get Cost of Care Estimates - [phone] The health insurance marketplace has changed dramatically in the last few years. Our cost of care service will provide estimates over the phone for treatments or procedures billed through [facility]. To receive a cost estimate, simply call [phone] during regular business hours. If you have insurance coverage, you will need to verify your policy of coverage with your health plan by calling the number located on the back of your insurance card and talking to member services. documented in this encounter Progress Notes * Candice Coates MD - 10/17/2023 10:00 AM CDT [facility] Urogynecology New Patient Consult Marnie Duvall : 1965 Date of Service: 10/17/2023 Chief Complaint: Chief Complaint Patient presents with CONSULT UUI, several years, worsening. Hx observed rectocele, poss cystocele. Endorses GAURAV, nocturia, incomplete bladder emptying, BM concerns. Denies baseline urgency/frequency, UI w/o sensation, vaginal bulging. HPI: Marnie Duvall is a 58 y.o. menopausal female who presents today for new patient consult and evaluation regarding: Urinary frequency, Urinary urgency, and Urinary incontinence, mixed Medical history is significant for: CKD Surgical history is significant for: Nephrectomy (Right) - open abdominal ; She was referred by: Nancy Stock She reports for the last 5-7 years more issue with leakage She has urge incontinence and stress incontinence She loose her bladder about 3 times a week Bladder symptoms: Prior evaluation: Was seen by another urogynecologist but she was out of network She was seen at another urogynecologist Never seen at [facility] urogynecology but was referred Prior treatments: oxybutynin 10mg ER BID Leakage with stress: Yes; Leaks per week: once a week - small amount usually ; enough to need to change her pad She feels that when she puts pressure to sit up to stand and with pressure on her clitoris she thengoes to stand and the flood vogt open not even when she feels a urge before she goes to stand Reports that doesn't get a warning of fullness and then it is severe Pad use: yes - 3 per day, thick pad Urgency: Significantly increased Frequency: increased - voids per day: 7-8 GFR, Estimated Date Value Ref Range Status 08/05/2023 37 (L) >60 mL/min/1.73m2 Final Creatinine Date Value Ref Range Status 08/05/2023 1.62 (H) 0.55 - 1.02 mg/dL Final Bulge symptoms: Vaginal bulge symptoms:no Gynecology: Reports menopause She reports that she is irritated from leaking and there is occasional spotting Vaginally Spotting vaginally once a month for a day over the last 5 years Obstetric History: OB History Para Term AB Living 0 0 0 0 0 0 SAB IAB Ectopic Multiple Live Births 0 0 0 0 0 Medical History: Past Medical History: Diagnosis Date Chronic kidney disease, unspecified (HRC) Depression Diabetes (HRC) type I diagnosed at age 8 History of nephrectomy right Mitral valve prolapse (HRC) Sleep apnea, unspecified Surgical History: Past Surgical History: Procedure Laterality Date CATARACT REMOVAL Bilateral Laparoscopic cholecystectomy 12/2021 complicated by postop sepsis and had an abdominal washout due to remaining stones 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 TOTAL KNEE ARTHROPLASTY Bilateral Family History: Family History Problem Relation Age of Onset Emphysema Father Social History: Social History Socioeconomic History Marital status: Spouse name: Not on file Number of children: Not on file Years of education: Not on file Highest education level: Not on file Occupational History Not on file Tobacco Use Smoking status: Never Smokeless tobacco: Never Tobacco comments: N/A Vaping Use Vaping status: Never Used Substance and Sexual Activity Alcohol use: Not Currently Comment: 1 drink every 2 months Drug use: Not on file Sexual activity: Not on file Other Topics Concern Not on file Social History Narrative Not on file Social Determinants of Health Financial Resource Strain: Not on file Food Insecurity: Not on file Transportation Needs: Not on file Intimate Partner Violence: Not on file Housing Stability: Not on file Medications: Current Outpatient Medications Medication amoxicillin (AMOXIL) 500 MG capsule aspirin 81 MG chewable tablet Blood Glucose Monitoring Suppl (MARTIN CONTOUR MONITOR) W/DEVICE KIT kit blood glucose (MARTIN CONTOUR TEST) strip calcium carbonate-vitamin D 600-400 MG-UNIT tablet cholecalciferol (VITAMIND3) 25 MCG (1000 UT) capsule citalopram (AKA CELEXA) 40 MG tablet clobetasol (TEMOVATE) 0.05 % ointment cyclobenzaprine (FLEXERIL) 10 MG tablet Dexcom G7 Sensor continuous blood glucose device estradiol (ESTRACE) 0.1 MG/GM vaginal cream FIBER ADULT GUMMIES OR furosemide (LASIX) 40 MG tablet GLUCAGON EMERGENCY 1 MG Kit insulin glargine (TOUJEO SOLOSTAR) 300 UNIT/ML injection lancets (MARTIN MICROLET LANCETS) levothyroxine (SYNTHROID) 150 MCG tablet levothyroxine (SYNTHROID) 175 MCG tablet lisinopril (AKA ZESTRIL) 10 MG tablet methocarbamol (ROBAXIN) 500 MG tablet metroNIDAZOLE (METROCREAM) 0.75 % cream NOVOLOG 100 UNIT/ML injection (vial) omeprazole (AKA PRILOSEC) 20 MG capsule ondansetron (AKA ZOFRAN) 4 MG disintegrating tablet oxybutynin (DITROPANXL) 10 MG 24 hour release tablet oxyCODONE (AKA ROXICODONE) 5 MG immediate release tablet pregabalin (LYRICA) 300 MG capsule rizatriptan (MAXALT-SHOE LASTER) 10 MG disintegrating tablet topiramate (TOPAMAX) 100 MG tablet triamcinolone acetonide (KENALOG) 0.1 % paste valACYclovir (VALTREX) 500 MG tablet Allergies: Allergies Allergen Reactions Aleve [Naproxen] Gastrointestinal Examination: There were no vitals taken for this visit. General: well appearing in no distress, alert and oriented. HEENT: head is atraumatic, neck supple CV: extremities are warm and well perfused, no peripheral edema noted Lungs: respirations are unlabored, no wheezing Abdomen: soft, non-tender, non-distended External genitalia: normal in appearance, no rashes, lesions vagina: without lesion Cervix: normal cervix without lesions, polyps or tenderness Uterus: normal size, shape, consistency, no mass or tenderness Adnexa: no masses or tenderness Pelvic floor muscles: normal tone and non-tender bilaterally Pelvic floor muscle strength (oxford scale): 3 Urethra: Normal, Cough/Stress Test: Negative, and Hypermobile Bladder: Normal, Nontender, and PVR: 250 cc by catheter PVR with 12F non-indwelling catheter after cleaning urethra with betadine Cough stress test, empty supine: Negative Rectal exam: deferred POP-Q: No significant prolapse on exam Last UA results: Lab Results Component Value Date/Time URAP Clear 10/17/2023 11:24 AM UCOL Yellow 10/17/2023 11:24 AM LEUKU Negative 10/17/2023 11:24 AM NITRU Negative 10/17/2023 11:24 AM PHUR 6.0 10/17/2023 11:24 AM PROU Negative 10/17/2023 11:24 AM GLUUC Negative 10/17/2023 11:24 AM KETU Negative 10/17/2023 11:24 AM UBGQ 0.2 10/17/2023 11:24 AM BILIU Negative 10/17/2023 11:24 AM BLDU Negative 10/17/2023 11:24 AM Assessment: Diagnosis and Associated Orders ICD-10-CM 1. Postmenopausal bleeding N95.0 OBGYN Pelvic/Greenhouse Specialist Ultrasound 2. OAB (overactive bladder) N32.81 Urinalysis Routine, Micro/Culture if Pos: Straight catheter Complex Cystometrogram 3. Urge incontinence N39.41 Urinalysis Routine, Micro/Culture if Pos: Straight catheter Complex Cystometrogram 4. Mixed stress and urge urinary incontinence N39.46 Complex Cystometrogram 5. Urinary retention R33.9 Plan: Postmenopausal bleeding of pelvic ultrasound was ordered today * after the visit pelvic ultrasound had been completed which showed endometrial polyp she will follow up with general OBGYN for polypectomy and hysteroscopy which was arranged by ultrasound team Related to overactive bladder symptoms urgency incontinence and elevated postvoid residual on exam today Recommend urodynamics off of oxybutynin. Voiding diaries. She is at a higher dose of oxybutynin which may be contributing slightly to her elevated post void residual. We discussed the impact of an elevated postvoid residual on ongoing urgency and frequency symptoms. She mentions the InterStim which may be a good option for her especially in the setting of some incomplete bladder emptying. She does have a history of diabetes which could play a role as it is longstanding in terms of bladder emptying as well as back pain. No medications were prescribed today. Recommended to stop the oxybutynin, voiding diary and urodynamics. Follow up after urodynamics to decide on next steps therapy for symptom management Reports some KIYA but seems maybe more related to OAB/urgency. Negative cough stress test with 250 cc in the bladder today Candice Coates MD [facility] Urogynecology/Female Pelvic Medicine and Reconstructive Surgery This note contains medical terminology which is meant for communication between health care physicians and providers. Please note that vocabulary/phrasing/abbreviations may not carry the same definitions as they would in normal conversational speech. This note was created using medical dictation software. Please excuse any typographical errors in wrapper dipper. documented in this encounter Plan of Treatment Upcoming Encounters Date Type Department Care Team (Late st Contact Info) Description 12/29/2023 8:30 AM CDT [facility] U[facility]Gyne[facility] [address] [place] [phone] Candice Coates MD [address] [place] [phone] documented as of this encounter Procedures Procedure Name Priority Date/Time Associated Diagnosis Comments URINALYSIS ROUTINE, MICRO/CULTURE IF POS Routine 10/17/2023 11:24 AM CDT OAB (overactive bladder) Urge incontinence documented in this encounter Results * (ABNORMAL) OBGYN Pelvic/Greenhouse Specialist Ultrasound (10/17/2023 1:39 PM CDT) Uterus AP Diameter (Height) 2.60 cm EXTERNAL RESULTS Uterus Longitudinal Diameter (Length) 6.40 cm EXTERNAL RESULTS Uterus Transverse Diameter (Width) 3.50 cm EXTERNAL RESULTS Uterus Volume 30.49 ml MAILROOM SUPERVISOR AL RESULTS Endometrium Thickness 6.10 mm EXTERNAL [...] from the original result was not included. COURTESY BOOTH CASHIER Ultrasound Exam performed on: ??10/17/2023 Referring provider: Candice Coates MD Referring clinic: [facility]EC[facility] Clinical indications: Postmenopausal bleeding Surgery Specialist(s) initials: The pelvic organs are imaged using: [...] up with referring provider. ??Recommend consultation with application trainer for hysteroscopy. ??Patient requested expedited surgery scheduling therefore surgical orders were placed. ?? Carol Phillips MD Candice Coates MD RAD US * (ABNORMAL) Urinalysis Routine, Micro/Culture if Pos: Straight catheter (10/17/2023 11:24 AM CDT) Urine Culture Comment Urinalysis results do not meet criteria for urine culture reflex. 10/17/2023 11:41 AM [facility] Urine Color Yellow 10/17/2023 11:41 AM [facility] Urine Clarity Clear Clear 10/17/2023 11:41 AM [facility] Specific Mccomb, Urine <=1.005(A) 1.005 - 1.030 10/17/2023 11:41 AM [facility] PH Urine 6.0 5.0 - 8.0 10/17/2023 11:41 AM [facility] Protein, Urine Qual (mg/dL) Negative Neg/Trace 10/17/2023 11:41 AM [facility] Glucose Urine Qual (mg/dL) Negative Negative 10/17/2023 11:41 AM [facility] Ketones, Urine (mg/dL) Negative Negative 10/17/2023 11:41 AM [facility] Urobilinogen, Urine (EU/dL) 0.2 <2.0 10/17/2023 11:41 AM [facility] Bilirubin Urine Negative Negative 10/17/2023 11:41 AM [facility] Blood, Urine Negative Neg/Trace 10/17/2023 11:41 AM [facility] Nitrite Urine Negative Negative 10/17/2023 11:41 AM [facility] Leukocyte Est. Negative Negative 10/17/2023 11:41 AM [facility] Urine Source Straight catheter 10/17/2023 11:41 AM [facility] Urine (Straight catheter) Non-blood Collection / Unknown 10/17/2023 11:24 AM CDT 10/17/2023 11:39 AM CDT Candice Coates MD LAB_[address] [facility] [address] documented in this encounter Visit Diagnoses Diagnosis Postmenopausal bleeding- Primary OAB (overactive bladder) Hypertonicity of bladder Urge incontinence Mixed stress and urge urinary incontinence Mixed incontinence urge and stress (male)(female) Urinary retention Retention of urine, unspecified Postmenopausal bleeding- Primary documented in this encounter Additional Health Concerns Infection Onset Date Last Indicated Resolved Time MRSA Comment:Beronica 12-29-14, 01/06/16 12/30/2014 12/30/2014 documented as of this encounter Care Teams Pediatric Physician Assistant Relationship Specialty Start Date End Date Nikita Gamble MD [address] [place] [address] PCP - General Family Practice 06/23/23 documented as of this encounter
--- OUTSIDE RECORDS SUMMARY | 2023-12-28 23:16 | XMS_ITS | Encounter Summary ---
Author Organization [facility] Address [address] [place] [id number] Care Team Providers Care Manager Enterprise Name Role Phone Nikita Gamble MD Primary Care Provider [phone] Reason for Visit * Auth/Cert (Routine) Specialty Diagnoses / Procedures Referred By Contac t Referred To Contact Diagnoses Postmenopausal bleeding . Procedures HYSTEROSCOPY WITH MYOSURE, polypectomy Referral ID Status Reason Start Date Expiration Date Visits Re quested Visits Authorized [id number] 1 1 Encounter Details Date Type Department Care Team (Late st Contact Info) Description 12/14/2023 8:02 AM CDT - 12/14/2023 12:46 PM CDT Hospital Encounter [facility] Operating Room [address] [place] [id number] Carol Phillips MD [address] [place] [address] Postmenopausal bleeding Discharge Disposition: Home Social History Tobacco Use [...] Sign Reading Time Taken Comments Blood Pressure 135/57 12/14/2023 12:15 PM CDT Pulse 50 12/14/2023 12:15 PM CDT Temperature 36.8 ??C (98.2 ??F) 12/14/2023 12:15 PM C DT Respiratory Rate 14 12/14/2023 12:15 PM CDT Oxygen Saturation 99% 12/14/2023 12:15 PM CDT Inhaled Oxygen Concentration - - Weight 108.9 kg (240 lb) 12/14/2023 8:18 AM CDT Height 180.3 cm (5' 11) 12/14/2023 8:18 AM CDT Body Mass Index 33.47 12/14/2023 8:18 AM CDT documented in this encounter Discharge Instructions * Discharge Instr - Other Orders* Debbie Meadows RN - 12/14/2023 11:21 AM CDT CONTACT INFORMATION If it is after hours call the Careline at [phone]. [facility] Surgery: Please contact your clinic during regular business hours or in case of anEmergency dial 911. ANESTHESIA Today you received General/Minor Sedation: Rest in bed the day of surgery, then advance to normal activity the next day. Let's talk about what to expect after receiving anesthesia. After anesthesia, reactions are slow and some patients may become lightheaded or dizzy. The following safety precautions are recommended: Don't drink alcoholic beverages. Don't use any other drugs than those ordered by your physician. Don't drive a car or any other vehicle. Don't work with machinery or power tools. Be careful walking. Be extra careful walking up and down stairs. DANGER SIGNALS I should call my clinic if I experience any of the following: Temperature higher than 101 degrees Fahrenheit Redness that has spread Persistent bleeding Green/yellow/infected, foul smelling drainage from incision site Reaction to new medications Severe pain Swelling documented in this encounter Medications at Time of Discharge Medication Sig Dispensed Refills Start Date End Date Acetaminophen Extra Strength 500 MG Take 1 Tablet (500 mg) by mouth every 4 hours as needed for Pain for up to 30 days. 180 Tablet 12/14/2023 01/13/2024 amoxicillin (AMOXIL) 500 MG capsule Take 4 Capsules (2,000 mg) by mouth every 24 hours as needed. aspirin 81 MG chewable tabletIndications:Hea rt protection Take 1 Tab by mouth daily. Indications: Heart protection 100 Tab 3 04/30/2015 Blood Glucose Monitoring Suppl ([employer] CONTOUR MONITOR) W/DEVICE KIT kit As instructed 1 Each 0 12/30/2014 blood glucose (MARTIN CONTOUR TEST) strip 4 x daily. Pharmacy dispense brand based on insurance. 50 Each PRN 12/30/2014 calcium carbonate-vitamin D 600-400 MG-UNIT tablet Take 1 Tablet by mouth daily. cholecalciferol (VITAMIND3) 25 MCG (1000 UT) capsule Take 1 Capsule (1,000 Units) by mouth daily. 08/09/2023 citalopram (AKA CELEXA) 40 MG tabletIndications:Dep ression Take 1 Tab by mouth daily. Indications: Depression 14 Tab 0 04/30/2015 clobetasol (TEMOVATE) 0.05 % ointmentIndications:N ail dystrophy Rub into the nails and cuticles nightly before bed 60 g 2 07/20/2023 cyclobenzaprine (FLEXERIL) 10 MG tablet Take 1 Tablet (10 mg) by mouth every 8 hours. 12/07/2022 Dexcom G7 Sensor continuous blood glucose deviceIndications:Typ e 1 diabetes mellitus with diabetic neuropathy, unspecified ([facility]) Use for continuous glucose monitoring. Change sensor every 10 days. 90 day supply 9 Each 3 09/14/2023 estradiol (ESTRACE) 0.1 MG/GM vaginal creamIndications:Mery tourinary syndrome of menopause Insert 0.5 g vaginally two times a week. 42.5 g 6 11/24/2023 FIBER ADULT GUMMIES ORIndications:3 gummies po daily in morning Indications: 3 gummies po daily in morning furosemide (LASIX) 40 MG tablet Take 1 Tablet (40 mg) by mouth daily. GLUCAGON EMERGENCY 1 MG Kit SMARTSI Milligram(s) SUB-Q Once PRN 11/02/2022 insulin glargine (TOUJEO SOLOSTAR) 300 UNIT/ML injectionIndications: Type 1 Diabetes Mellitus Inject 51 Units subcutaneously every evening. Note increase in dose Indications: Insulin-Dependent Diabetes 15 mL 11 06/11/2015 lancets ([employer] MICROLET LANCETS) Use as directed. Pharmacy dispense brand based on insurance. 50 Each prn 12/30/2014 levothyroxine (SYNTHROID) 150 MCG tablet Take 1 tablet daily for 3 days of the week. Take at least one hour before or two hours after meal. 36 Tablet 3 06/07/2023 levothyroxine (SYNTHROID) 175 MCG tablet Take 1 tablet day for 4 days of the week. Take at least one hour before or two hours after meal. 48 Tablet 3 06/07/2023 lisinopril (AKA ZESTRIL) 10 MG tabletIndications:Hig h blood pressure & Diabetes Take 1 Tab by mouth daily. Indications: High blood pressure & Diabetes 30 Tab 11 04/30/2015 methocarbamol (ROBAXIN) 500 MG tablet Take 1 Tablet (500 mg) by mouth three times a day as needed. metroNIDAZOLE (METROCREAM) 0.75 % cream Apply topically two times a day. 08/24/2022 NOVOLOG 100 UNIT/ML injection (vial) Inject 125 Units subcutaneously daily. 12/09/2022 omeprazole (AKA PRILOSEC) 20 MG capsule Take 1 tablet by mouth two times a day before meals for 13 days Indications: H-pylori infect 26 Cap 0 04/30/2015 ondansetron (AKA ZOFRAN) 4 MG disintegrating tablet Take 1 Tablet (4 mg) by mouth every 8 hours as needed for Nausea. oxybutynin (DITROPANXL) 10 MG 24 hour release tablet Take 1 Tablet (10 mg) by mouth two times a day. oxyCODONE (AKA ROXICODONE) 5 MG immediate release tabletIndications:Acu te Pain Take 1-2 Tabs by mouth every 4 hours as needed for Pain. Indications: Acute Pain 10 Tab 0 04/30/2015 pregabalin (LYRICA) 300 MG capsule Take 1 Capsule (300 mg) by mouth two times a day. rizatriptan (MAXALT-AWNING HANGER) 10 MG disintegrating tablet Take 1 Tablet (10 mg) by mouth as needed. topiramate (TOPAMAX) 100 MG tablet Take 1 Tablet (100 mg) by mouth daily. 06/23/2023 triamcinolone acetonide (KENALOG) 0.1 % paste apply topically to affected dental area three times a day; use after food and/or drink and/or oral hygiene* 11/03/2022 valACYclovir (VALTREX) 500 MG tablet Take 1 Tablet (500 mg) by mouth daily as needed. documented as of this encounter Procedure Notes * Carol Phillips MD - 12/14/2023 11:22 AM CDT Full Operative Note Hysteroscopy Date of Service: 12/12/2023 Surgeon: Dr. Carol Phillips MD Assistants: Concha Maldonado DO, MPH, PGY-1 Preop Dx: AUB-P, dyspareunia, genitourinary syndrome of menopause, cervical cancer screening Postop Dx: Same as above, s/p below stated procedure Procedure: EUA, hysteroscopy, polypectomy Anesthesia: MAC & Local EBL: 10 mL IVF: 600 mL crystalloid UOP: Not measured, patient voided prior to procedure Drains: None Fluid Deficit: 570 mL Specimens: Endometrial curettings, left vestibular biopsy, left vulvar biopsy Complications: None apparent Indications: Ms. Marnie Duvall is a 58 y.o. , who presented with post-menopausal bleeding. PMH significant for DM1 with nephropathy and CKD. TVUS with SIS showed anterior echogenic mass consistent with endometrial polyp measuring 1.5x0.5x1.1 cm. Hysteroscopy was recommended. The risks, benefits, and alternatives were discussed with the patient including risk of bleeding, infection, injury to surrounding structures, and uterine perforation. She understood these risks and agreed to proceed. In addition to hysteroscopy, she stated she was due for pap screening (prior pap records not available, no h/o abnormal paps) and has been managing GSM and dyspareunia with resuming vaginal estrogen.Discussed possible vulvar biopsy to evaluate for dermatologic conditions. Findings: EUA: Severe atrophy, agglutination of labia majora/minora superficially, blunting of clitoris and loss of inferior labia minora, perineum with fissure, thin and hypopigmented, narrowed introitus withperineal trauma with use of speculum. N cervical or vaginal lesions palpated or visualized. Uterus a nteverted, midline, mobile. Hysteroscopy: Normal uterine cavity, bilateral tubal ostia patent, anterior endometrial polyp visualized. No complications apparent at the end of the case. Procedure Details: The patient was brought to the operating room where moderate sedation was administered under monitored anesthesia care. She was placed in the dorsal lithotomy position, with legs in Yellowfin stirrups. Exam under anesthesia revealed the findings noted above. A sterile speculum was placed and a pap smear was collected.The patient was then prepped and draped in the usual sterile fashion. Surgical time out was performed. A sterile speculum was placed. The anterior lip of the cervix was then grasped horizontally with a single tooth tenaculum. A paracervical block was performed with a total of 20 mL of the 1% lidocaine injected at 4 and 8 o'clock in the cervicovaginal junction. The cervix was dilated easily to a 6 using Hegar dilators. The hysteroscope was placed, and the uterine cavity was explored. The above findings were noted. Morcellation of endometrial polyp and global sampling was performed using TruClear morcellator. The tenaculum was removed and tenaculum sites were noted to be hemostatic. All instruments were removed from the vagina. Two sites were infiltrated with approx 8 mL Lidocaine in preparation for punch biopsy. A 2 mm punch biopsy was taken on the left superior labia majoria/minora border. A 3 mm punch biopsy was taken on the on the vestibule/left perineum. Silver nitrate was utilized. The 3 mm punch biopsy site required one single interrupted stitch with 4-0 Monocryl to maintain hemostasis. The vulva was coated with silver sulfasalazine. The sponge, needle, and instrument counts were correct. The patient tolerated the procedure well and was transferred to recovery in stable condition. Dr. Phillips was present for the entirety of the procedure. Concha Maldonado DO, MPH Obstetrics and Gynecology, PGY-1 12/14/23 11:22 AM I was actively present, scrubbed and participated in the above procedure. I have read and edited the operative report. DOS 12/14/2023 Carol Phillips MD documented in this encounter Miscellaneous Notes * OR Nursing - Pina Sloan RN - 12/14/2023 11:32 AM CDT [facility] Progress Note Patient Name: Marnie Duvall Date of : 1965 Fluid deficit 570cc post hysteroscopy per Dr. Phillips. Pina Sloan, RN 12/14/2023 at 11:32 AM documented in this encounter Plan of Treatment Upcoming Encounters Date Type Department Care Team (Late st Contact Info) Description 12/29/2023 8:30 AM CDT [facility] UroGynecology [address] [place] [address] Candice Coates MD [address] [facility] [address] [place] [address] Pending Results Name Type Priority Associated Diagnoses Date /Time PAP Test Lab Routine 12/14/2023 10: 52 AM CDT HPV Genotyping PCR (Cervical/Endocervical ONLY) Microbiology Routine 12/14/2023 10:52 AM CDT Scheduled Orders Name Type Priority Associated Diagnoses Orde r Schedule PAP Test Lab Routine Once today sta rting now for 1 Occurrences starting 12/14/2023 until 12/14/2023 HPV Genotyping PCR (Cervical/Endocervica l ONLY) Microbiology Routine Once today start ing now for 1 Occurrences starting 12/14/2023 until 12/14/2023, 1 completed documented as of this encounter Procedures Procedure Name Priority Date/Time Associated Diagnosis Comments SURGICAL PATHOLOGY Routine 12/14/2023 11 :04 AM CDT Postmenopausal bleeding HYSTEROSCOPY WITH TRUCLEAR 12/14/2023 9:56 AM CDT Postmenopausal bleeding GLUCOSE, WHOLE BLOOD POCT Routine 12/14/2023 9:03 AM CDT documented in this encounter Results * Surgical Path (12/14/2023 11:04 AM CDT) Case Report Surgical Pathology ?Case: [id number] ? Authorizing Provider: ??Carol Phillips MD ?Collected: ? 12/14/2023 1104 ? Ordering Location: ? [facility] Operating Room ?Received: ?12/14/2023 1132 ? Pathologist: ? Joann Mckeon MD ? Specimens: ?? A) - Labia, left, Left superior labial biopsy ? B) - Vulva, Left vestibule ? C) - Uterus, Endometrial currettings ? 12/22/2023 1:37 PM [facility] FINAL DIAGNOSIS A. Skin, Labia, left superior, biopsy: Mild acanthosis with slight superficial dermal fibroplasia and mild pigment incontinence (see comment) B. Vulva, left vestibule, biopsy: Focal nonspecific superficial stromal inflammation and patchy extravasated red blood cells (see comment) C. Endometrium, curettage: Fragments of endometrial polyp Negative for hyperplasia, atypia, and malignancy Comment: PAS stains for fungus performed on both specimens A and B are negative. The findings are not clearly diagnostic for a particular process. Lichen sclerosus can not be excluded. Clinical correlation is recommended. 12/22/2023 1:37 PM [facility] Clinical Information Postmenopausal bleeding 12/22/2023 1:37 PM [facility] Microscopic Description A. Microscopic examination including multiple deeper recut sections is performed. B/C. Microscopic examination is performed. 12/22/2023 1:37 PM [facility] Special Stains The stain controls have been reviewed and stain appropriately. 12/22/2023 1:37 PM [facility] Gross Description A: The specimen is received in formalin and labeled with the patient's name and Labia, left, Left superior labial biopsy. The specimen consists of 2 pale white-ballard/pink-ta n pieces of soft tissue, 0.1-0.3 cm. The specimen is filtered and entirely submitted in 1 cassette. TK B: The specimen is received in formalin and labeled with the patient's name and Vulva, Left vestibule. The specimen consists of a cylindrical core of white-ballard soft tissue, 1.2 cm in length and averages 0.1 cm in diameter. The specimen is filtered and entirely submitted in 1 cassette. TK C: The specimen is received in formalin and labeled with the patient's name and Uterus, Endometrial currettings. The specimen consists of a 2.6 x 1.5 x 0.3 cm aggregate of hemorrhagic irregular tissue fragments. The specimen is filtered and entirely submitted in 1 cassette. TK 12/22/2023 1:37 PM [facility] Embedded Images 12/22/2023 1:37 PM [facility] Tissue GENITAL LABIUM STRUCTURE / Unknown 12/14/2023 11:04 AM CDT 12/14/2023 11:32 AM CDT Tissue specimen (specimen) VULVAL STRUCTURE / Unknown 12/14/2023 11:09 AM CDT 12/14/2023 11:32 AM CDT Tissue specimen (specimen) UTERINE STRUCTURE / Unknown 12/14/2023 11:16 AM CDT 12/14/2023 11:32 AM CDT Carol Phillips MD LAB PATHOLOGY [address] * Glucose, Whole Blood POCT (12/14/2023 9:03 AM CDT) Glucose, Whole Blood 174 70 - 180 mg/dL 12/14/2023 9:05 AM CDT [facility] Performing Location [facility]U 12/14/2023 9:05 AM CDT [facility] Blood 12/14/2023 9:03 AM CDT 12/14/2023 9:05 AM CDT Carol Phillips MD LAB_1 Performing Organization Address [facility] Co de Phone Number [address] documented in this encounter Visit Diagnoses Diagnosis Postmenopausal bleeding- Primary Postmenopausal bleeding documented in this encounter Admitting Diagnoses Diagnosis Postmenopausal bleeding documented in this encounter Administered Medications Inactive Administered Medications - up to 3 most recent administrations Medication Order MAR Action Action Date Dose Rate Site acetaminophen (TYLENOL) tablet 650 mg 650 mg, Oral, Q4H PRN, Pain, Starting on Tue12/14/23 at 1105, Until Tue12/14/23 at 1446, For 2 doses, Give acetaminophen first for pain. Acetaminophen may be given WITH other pain medications as adjunct for pain relief. Do not give two acetaminophen containing medications within 4 hours of each other. PACU use only, PACU (only) dexAMETHasone (DECADRON) injection 4-8 mg 4-8 mg, Intravenous, Q15MIN PRN, Other, nausea/vomiting, Starting on Tue12/14/23 at 1105, Until Tue12/14/23 at 1446, For 2 doses, Anti-emetic Step 2: Dexamethasone 4-8 mg IV If not given in operating room. (Use in PACU only). If medication given in OR may give up to 8 mg total dose (including intra-operative dose) If nausea not resolved in 15 minutes go to next step medication if ordered otherwise proceed to next antiemetic step.. PACU use only, PACU (only) fentaNYL (SUBLIMAZE) injection 25-50 mcg 25-50 mcg, Intravenous, [id number], Pain, Starting on Tue12/14/23 at 1105, Until Tue12/14/23 at 1446, PACU USE ONLY Use fentanyl as first line short acting agent for treatment of acute post operative pain. Start with lower dose and adjust subsequent dosing based on patient response. May use for breakthrough pain in conjunction with a longer acting agent (hydromorphone or morphine). Respiratory rate must be greater than 10 to administer medication. Total PACU fentanyl dose not to exceed 200 mcg. , PACU (only) hydrALAZINE (APRESOLINE) injection 5 mg 5 mg, Intravenous, Q10MIN PRN, Blood Pressure >, Hypertension SBP greater than 160, Starting on Tue12/14/23 at 1105, Until Tue12/14/23 at 1446, Must call anesthesia before giving medication. Give every 10 minutes PRN up to 20 mg. (PACU use only), PACU (only) HYDROmorphone (DILAUDID) injection 0.2-0.3 mg 0.2-0.3 mg, Intravenous, Q10MIN PRN, Pain, Starting on Tue12/14/23 at 1105, Until Tue12/14/23 at 1446, PACU USE ONLY Use hydromorphone if fentanyl alone is not adequately managing pain. Start with lower dose and adjust subsequent dosing based on patient response. May use fentanyl for breakthrough pain in conjunction with hydromorphone dosing. Respiratory rate must be greater than 10 to administer medication. Total PACU hydromorphone dose not to exceed 2 mg, PACU (only) insulin lispro (HUMALOG; ADMELOG) injection vial 2-4 Units 2-4 Units, Subcutaneous, PRN BASED ON BLOOD SUGAR, Blood Sugar >, Starting on Tue12/14/23 at 1105, PACU PATIENTS ONLY Blood Sugar 151-199 mg/dL: give 2 units, Blood Sugar 200-250 mg/dL: give 3 units, Blood Sugar greater than 250 mg/dL: give 4 units and call anesthesia, PACU (only) labetalol (NORMODYNE) injection 5 mg 5 mg, Intravenous, [id number], Blood Pressure >, Hypertension SBP greater than 160, Starting on Tue12/14/23 at 1105, Until Tue12/14/23 at 1446, Must call anesthesia before giving medication. Give every 5 minutes PRN up to 25 mg. DO NOT GIVE if HR less than 50. (PACU use only), PACU (only) lactated ringers infusion Intravenous, at 30 mL/hr, CONTINUOUS, Starting on Tue12/14/23 at 0830, Pre-op Started 12/14/2023 9:01 AM CDT 30 mL/h r lactated ringers infusion Intravenous, at 125 mL/hr, CONTINUOUS, Starting on Tue12/14/23 at 0830, Pre-op lidocaine PF (XYLOCAINE) 1 % injection ONCE PRN, Starting on Tue12/14/23 at 1042, Intra-op Given 12/14/2023 11:14 AM CDT 8 mL Vaginal Given 12/14/2023 10:42 AM CDT 20 mL V aginal lubricant (SURGILUBE/KY JELLY) gel ONCE PRN, Starting on Tue12/14/23 at 1034, Intra-op Given 12/14/2023 10:34 AM CDT 25 g Vaginal ondansetron (ZOFRAN) injection 4 mg 4 mg, Intravenous, Q15MIN PRN, Nausea, Vomiting, Starting on Tue12/14/23 at 1105, Until Tue12/14/23 at 1446, For 2 doses, Anti-emetic Step 1: Ondansetron 4 mg IV If not given in operating room. (PACU use only) If an intra-operative dose was given may repeat up to a total dose of 8 mg (including intra-operative dose). If nausea is not resolved in 15 minutes go to next 2-5 step medication if ordered otherwise proceed to next antiemetic step. PACU use only, PACU (only) oxyCODONE (ROXICODONE) 1 MG/1ML solution 5 mg 5 mg, Oral, ONCE PRN, Pain, Moderate to Severe Pain, Starting on Tue12/14/23 at 1105, Until Tue12/14/23 at 1446, For 1 dose, Give for pain not managed by non-opioid medications or other interventions. Use if unable to swallow tablets. PACU use only, PACU (only) oxyCODONE (ROXICODONE) immediate release tablet 5 mg 5 mg, Oral, ONCE PRN, Pain, Moderate to Severe pain, Starting on Tue12/14/23 at 1105, Until Tue12/14/23 at 1446, For 1 dose, Give for pain not managed by non-opioid medications or other interventions. Use if able to swallow tablets. PACU use only, PACU (only) prochlorperazine (COMPAZINE) injection 5 mg 5 mg, Intravenous, Q15MIN PRN, Vomiting, Nausea, Starting on Tue12/14/23 at 1105, Until Tue12/14/23 at 1446, For 2 doses, Anti-emetic Step 4: prochloperazine Administer slow IV push over 2-5 minutes to reduce the risk of akathisia and dystonic reactions. Do not push faster than 5 mg/min. Give if continued Nausea/Vomiting after previous step 1-3 medications if ordered. If not resolved after 2 doses go to available step medication as ordered., PACU (only) silver nitrate-potassium nitrate applicator ONCE PRN, Starting on Tue12/14/23 at 1112, Intra-op Given 12/14/2023 11:12 AM CDT 4 Applicators Vaginal silver sulfADIAZINE (SILVADENE) 1 % cream ONCE PRN, Starting on Tue12/14/23 at 1124, Intra-op Given 12/14/2023 11:24 AM CDT 10 g Vaginal documented in this encounter Active and Recently Administered Medications Times are shown in CDT. Continuous Medication Order 12/12/2023 12/13/2023 12/14/2023 lactated ringers infusion Intravenous, at 30 mL/hr, CONTINUOUS, Starting on Tue12/14/23 at 0830, Pre-op 0901 (Started - Prov ider: Cornel Ventura RN) lactated ringers infusion Intravenous, at 125 mL/hr, CONTINUOUS, Starting on Tue12/14/23 at 0830, Pre-op 0830 (Due) PRN Medication Order 12/12/2023 12/13/2023 12/14/2023 acetaminophen (TYLENOL) tablet 650 mg 650 mg, Oral, Q4H PRN, Pain, Starting on Tue12/14/23 at 1105, Until Tue12/14/23 at 1446, For 2 doses, Give acetaminophen first for pain. Acetaminophen may be given WITH other pain medications as adjunct for pain relief. Do not give two acetaminophen containing medications within 4 hours of each other. PACU use only, PACU (only) dexAMETHasone (DECADRON) injection 4-8 mg 4-8 mg, Intravenous, Q15MIN PRN, Other, nausea/vomiting, Starting on Tue12/14/23 at 1105, Until Tue12/14/23 at 1446, For 2 doses, Anti-emetic Step 2: Dexamethasone 4-8 mg IV If not given in operating room. (Use in PACU only). If medication given in OR may give up to 8 mg total dose (including intra-operative dose) If nausea not resolved in 15 minutes go to next step medication if ordered otherwise proceed to next antiemetic step.. PACU use only, PACU (only) fentaNYL (SUBLIMAZE) injection 25-50 mcg 25-50 mcg, Intravenous, [id number], Pain, Starting on Tue12/14/23 at 1105, Until Tue12/14/23 at 1446, PACU USE ONLY Use fentanyl as first line short acting agent for treatment of acute post operative pain. Start with lower dose and adjust subsequent dosing based on patient response. May use for breakthrough pain in conjunction with a longer acting agent (hydromorphone or morphine). Respiratory rate must be greater than 10 to administer medication. Total PACU fentanyl dose not to exceed 200 mcg. , PACU (only) hydrALAZINE (APRESOLINE) injection 5 mg 5 mg, Intravenous, Q10MIN PRN, Blood Pressure >, Hypertension SBP greater than 160, Starting on Tue12/14/23 at 1105, Until Tue12/14/23 at 1446, Must call anesthesia before giving medication. Give every 10 minutes PRN up to 20 mg. (PACU use only), PACU (only) HYDROmorphone (DILAUDID) injection 0.2-0.3 mg 0.2-0.3 mg, Intravenous, Q10MIN PRN, Pain, Starting on Tue12/14/23 at 1105, Until Tue12/14/23 at 1446, PACU USE ONLY Use hydromorphone if fentanyl alone is not adequately managing pain. Start with lower dose and adjust subsequent dosing based on patient response. May use fentanyl for breakthrough pain in conjunction with hydromorphone dosing. Respiratory rate must be greater than 10 to administer medication. Total PACU hydromorphone dose not to exceed 2 mg, PACU (only) insulin lispro (HUMALOG; ADMELOG) injection vial 2-4 Units 2-4 Units, Subcutaneous, PRN BASED ON BLOOD SUGAR, Blood Sugar >, Starting on Tue12/14/23 at 1105, PACU PATIENTS ONLY Blood Sugar 151-199 mg/dL: give 2 units, Blood Sugar 200-250 mg/dL: give 3 units, Blood Sugar greater than 250 mg/dL: give 4 units and call anesthesia, PACU (only) labetalol (NORMODYNE) injection 5 mg 5 mg, Intravenous, [id number], Blood Pressure >, Hypertension SBP greater than 160, Starting on Tue12/14/23 at 1105, Until Tue12/14/23 at 1446, Must call anesthesia before giving medication. Give every 5 minutes PRN up to 25 mg. DO NOT GIVE if HR less than 50. (PACU use only), PACU (only) lidocaine PF (XYLOCAINE) 1 % injection ONCE PRN, Starting on Tue12/14/23 at 1042, Intra-op 1042 (Given - Provid er: Carol Phillips MD)1114 (Given - Provider: Carol Phillips MD) lubricant (SURGILUBE/KY JELLY) gel ONCE PRN, Starting on Tue12/14/23 at 1034, Intra-op 1034 (Given - Provid er: Carol Phillips MD) ondansetron (ZOFRAN) injection 4 mg 4 mg, Intravenous, Q15MIN PRN, Nausea, Vomiting, Starting on Tue12/14/23 at 1105, Until Tue12/14/23 at 1446, For 2 doses, Anti-emetic Step 1: Ondansetron 4 mg IV If not given in operating room. (PACU use only) If an intra-operative dose was given may repeat up to a total dose of 8 mg (including intra-operative dose). If nausea is not resolved in 15 minutes go to next 2-5 step medication if ordered otherwise proceed to next antiemetic step. PACU use only, PACU (only) oxyCODONE (ROXICODONE) 1 MG/1ML solution 5 mg(Linked Group 1) 5 mg, Oral, ONCE PRN, Pain, Moderate to Severe Pain, Starting on Tue12/14/23 at 1105, Until Tue12/14/23 at 1446, For 1 dose, Give for pain not managed by non-opioid medications or other interventions. Use if unable to swallow tablets. PACU use only, PACU (only) oxyCODONE (ROXICODONE) immediate release tablet 5 mg(Linked Group 1) 5 mg, Oral, ONCE PRN, Pain, Moderate to Severe pain, Starting on Tue12/14/23 at 1105, Until Tue12/14/23 at 1446, For 1 dose, Give for pain not managed by non-opioid medications or other interventions. Use if able to swallow tablets. PACU use only, PACU (only) prochlorperazine (COMPAZINE) injection 5 mg 5 mg, Intravenous, Q15MIN PRN, Vomiting, Nausea, Starting on Tue12/14/23 at 1105, Until Tue12/14/23 at 1446, For 2 doses, Anti-emetic Step 4: prochloperazine Administer slow IV push over 2-5 minutes to reduce the risk of akathisia and dystonic reactions. Do not push faster than 5 mg/min. Give if continued Nausea/Vomiting after previous step 1-3 medications if ordered. If not resolved after 2 doses go to available step medication as ordered., PACU (only) silver nitrate-potassium nitrate applicator ONCE PRN, Starting on Tue12/14/23 at 1112, Intra-op 1112 (Given - Provid er: Carol Phillips MD) silver sulfADIAZINE (SILVADENE) 1 % cream ONCE PRN, Starting on Tue12/14/23 at 1124, Intra-op 1124 (Given - Provid er: Carol Phillips MD - Comment: Applied to labia and perineum) No Frequency Medication Order 12/12/2023 12/13/2023 12/14/2023 silver nitrate-potassium nitrate 75-25 % applicator - ADS Override Pull Starting on Tue12/14/23 at 1108, For 1 dose, Pina Sloan: cabinet override 1115 (Due) silver sulfADIAZINE (SILVADENE) 1 % cream - ADS Override Pull Starting on Tue12/14/23 at 0946, For 1 dose, Pina Sloan: cabinet override 1000 (Due) Linked Groups Order Group 1: oxyCODONE (ROXICODONE) immediate release tablet 5 mgJump to med 5 mg, Oral, ONCE PRN, Pain, Moderate to Severe pain, Starting on Tue12/14/23 at 1105, Until Tue12/14/23 at 1446, For 1 dose, Give for pain not managed by non-opioid medications or other interventions. Use if able to swallow tablets. PACU use only, PACU (only) Or oxyCODONE (ROXICODONE) 1 MG/1ML solution 5 mgJump to med 5 mg, Oral, ONCE PRN, Pain, Moderate to Severe Pain, Starting on Tue12/14/23 at 1105, Until Tue12/14/23 at 1446, For 1 dose, Give for pain not managed by non-opioid medications or other interventions. Use if unable to swallow tablets. PACU use only, PACU (only) documented in this encounter Additional Health Concerns Infection Onset Date Last Indicated Resolved Time MRSA Comment:Beronica 10-4-15, 01/06/16 12/30/2014 12/30/2014 documented as of this encounter Care Teams Manager Enterprise Relationship Specialty Start Date End Date Nikita Gamble MD [address] [place] [address] PCP - General Family Practice 06/23/23 documented as of this encounter
--- OUTSIDE RECORDS SUMMARY | 2023-12-28 23:16 | XMS_ITS | Encounter Summary ---
Author Organization [facility] Address [address] [place] [address] Care Team Providers Care Hookman Name Role Phone Nikita Gamble MD Primary Care Provider Reason for Visit * Auth/Cert (Routine) Specialty Diagnoses / Procedures Referred By Contac t Referred To Contact Diagnoses Postmenopausal bleeding . Procedures HYSTEROSCOPY WITH MYOSURE, polypectomy Referral ID Status Reason Start Date Expiration Date Visits Re quested Visits Authorized [id number] 1 1 Encounter Details Date Type Department Care Team (Late st Contact Info) Description 12/14/2023 10:00 AM CDT - 12/14/2023 11:15 AM CDT Surgery Operating Room [address] [place] [phone] Carol Phillips MD [address] [place] [address] HYSTEROSCOPY WITH TRUCLEAR, polypectomy, PAP SMEAR AND VULVAR BIOPSY Social History Tobacco Use Types Packs/Day Years [...] Sign Reading Time Taken Comments Blood Pressure 143/57 12/14/2023 8:45 AM CDT Pulse 53 12/14/2023 8:45 AM CDT Temperature 36.2 ??C (97.2 ??F) 12/14/2023 8:45 AM CD T Respiratory Rate 16 12/14/2023 8:45 AM CDT Oxygen Saturation 97% 12/14/2023 8:45 AM CDT Inhaled Oxygen Concentration - - [...] is after hours call the Careline at [phone]. [facility] Surgery: Please contact your clinic during [...] Tab 3 04/30/2015 Blood Glucose Monitoring Suppl (OrdrIt CONTOUR MONITOR) W/DEVICE KIT kit As instructed [...] 1 diabetes mellitus with diabetic neuropathy, unspecified ([facility]) Use for continuous glucose monitoring. Change sensor [...] Insulin-Dependent Diabetes 15 mL 11 06/11/2015 lancets (MARTIN MICROLET LANCETS) Use as directed. [...] by mouth two times a day. rizatriptan (MAXALT-MERCHANDISE ASSOCIATE) 10 MG disintegrating tablet Take 1 Tablet [...] Sloan RN - 12/14/2023 11:32 AM CDT [facility] Progress Note Patient Name: Marnie Duvall Date of : 1965 Fluid deficit 570cc post hysteroscopy per Dr. Phillips. Pina Sloan RN 12/14/2023 at 11:32 AM documented in this encounter Plan of Treatment Upcoming Encounters Date Type Department Care Team (Late st Contact Info) Description 12/29/2023 8:30 AM CDT [facility] Uro[facility]ne[facility] [address] [place] [address] Candice Coates MD [address] [phone] Pending Results Name Type Priority Associated Diagnoses [...] AM CDT) Case Report Surgical Pathology ?Case: [id number] ? Authorizing Provider: ??Carol Phillips MD ?Collected: ? 12/14/2023 1104 ? Ordering Location: ? Operating Room ?Received: ?12/14/2023 1132 ? Pathologist: ? Joann Mckeon MD ? Specimens: ?? A) - Labia, left, Left superior labial biopsy ? B) - Vulva, Left vestibule ? C) - Uterus, Endometrial currettings ? 12/22/2023 1:37 PM [facility] FINAL DIAGNOSIS A. Skin, Labia, left superior, [...] Clinical correlation is recommended. 12/22/2023 1:37 PM [facility] Clinical Information Postmenopausal bleeding 12/22/2023 1:37 PM [facility] Microscopic Description A. Microscopic examination including multiple deeper recut sections is performed. B/C. Microscopic examination is performed. 12/22/2023 1:37 PM [facility] Special Stains The stain controls have been reviewed and stain appropriately. 12/22/2023 1:37 PM [facility] Gross Description A: The specimen is received [...] in 1 cassette. TK 12/22/2023 1:37 PM [facility] Embedded Images 12/22/2023 1:37 PM [facility] Tissue GENITAL LABIUM STRUCTURE / Unknown 12/14/2023 11:04 AM CDT 12/14/2023 11:32 AM CDT Tissue specimen (specimen) VULVAL STRUCTURE / Unknown 12/14/2023 11:09 AM CDT 12/14/2023 11:32 AM CDT Tissue specimen (specimen) UTERINE STRUCTURE / Unknown 12/14/2023 11:16 AM CDT 12/14/2023 11:32 AM CDT Carol Phillips MD LAB PATHOLOGY Performing Organization Address City/[facility]/ZIP Co de Phone Number [address] * Glucose, Whole Blood POCT (12/14/2023 9:03 AM CDT) Glucose, Whole Blood 174 70 - 180 mg/dL 12/14/2023 9:05 AM [facility] Performing Location [facility] PSCU 12/14/2023 9:05 AM [facility] Blood 12/14/2023 9:03 AM CDT 12/14/2023 9:05 AM CDT Carol Phillips MD LAB_1 Performing Organization Address [facility] Co de Phone Number [address] documented in this encounter Visit Diagnoses Diagnosis Postmenopausal bleeding- Primary Postmenopausal bleeding Postmenopausal bleeding documented in this encounter Admitting [...] (SUBLIMAZE) injection 25-50 mcg 25-50 mcg, Intravenous, [id number], Pain, Starting on Tue12/14/23 at 1105, Until [...] (NORMODYNE) injection 5 mg 5 mg, Intravenous, [id number], Blood Pressure >, Hypertension SBP greater than [...] (SUBLIMAZE) injection 25-50 mcg 25-50 mcg, Intravenous, [id number], Pain, Starting on Tue12/14/23 at 1105, Until [...] (NORMODYNE) injection 5 mg 5 mg, Intravenous, [id number], Blood Pressure >, Hypertension SBP greater than [...] documented as of this encounter Care Teams Hookman Relationship Specialty Start Date End Date Nikita Gamble MD [address] [place] [address] PCP - General Family Practice 06/23/23 documented as of this encounter
--- OUTSIDE RECORDS SUMMARY | 2023-12-28 23:16 | XMS_ITS | Encounter Summary ---
Author Organization [facility] Address [address] [place] [address] Care Team Providers Care Plumber'S Assistant Name Role Phone Nikita Gamble MD Primary Care Provider [phone] Encounter Details Date Type Department Care Team (Late st Contact Info) Description 11/22/2023 3:40 PM CDT Telemedicine [facility] [address] [facility] [place], [place] [phone] Carol Phillips MD [address] [place] [phone] Endometrial polyp (Primary Dx); PMB (postmenopausal bleeding); Genitourinary syndrome of menopause Social History Tobacco Use Types Packs/Day Years [...] as of this encounter Progress Notes * Carol Phillips MD - 11/22/2023 3:40 PM CDT CHILD CARE DEVELOPMENT SPECIALIST Visit Video converted to phone due to slow internet connection CC: PMB, endometrial polyp scheduled for hysteroscopy on 12/13 HPI: Marnie Duvall is a 58 y.o. presenting with the above complaint. PMH significant for: Patient Active Problem List Diagnosis MRSA (methicillin resistant Staphylococcus aureus) Anxiety (HRC) Benign essential hypertension (HRC) Depression with anxiety (HRC) Diabetic ketoacidosis without coma associated with type 1 diabetes mellitus (HRC) Diabetic peripheral neuropathy associated with type 1 diabetes mellitus (HRC) Generalized tonic-clonic seizure (HRC) History of pulmonary embolism Knee osteoarthritis Need for SBE (subacute bacterial endocarditis) prophylaxis Obstructive sleep apnea syndrome S/p nephrectomy Latent tuberculosis diagnosed by blood test Type 1 diabetes mellitus with diabetic neuropathy, unspecified (HRC) Hypertensive chronic kidney disease with stage 1 through stage 4 chronic kidney disease, or unspecified chronic kidney disease (HRC) Major depressive disorder, recurrent, mild (HRC) Type 1 diabetes mellitus without complications (HRC) Bilateral leg edema Urge incontinence of urine Anemia Stage 3b chronic kidney disease (HRC) Obesity (BMI 30-39.9) (HRC) Type 1 diabetes mellitus with diabetic nephropathy (HRC) Postmenopausal bleeding Pt seen by urogyn for UUI and report PMB. Sent for pelvic US which showed endometrial polyp. Considerable about of urinary leakage - 11/30 scheduled for urodynamic testing and has follow up 12/14with Dr. Coates. Couple spotting episode since US but no flow. Occasional vaginal odor but thinks its from the urinary incontinence. Menopause: early 50s HRT: no Was noticing vaginal dryness and very painful intercourse, was recommended silicone based lubricants. Helped but didn't make a big difference. Rudy a tearing sensation every time she was sexually active. States her got frustrated and lost interested. They haven't had intercourse in about 1.5 years. She has asked him about his sexual function but he doesn't want to talk about it. Later she started using vaginal estrogen. It was helping when she used it more consistently but would often forget and then stopped after she and her partner became less active. Started using it twice a week again and needs new Rx. Exam performed on: 10/17/2023 Referring provider: Candice Coates MD Referring clinic: [facility] Clinical indications: Postmenopausal bleeding Imitation Marble Mechanic(s) initials: The pelvic organs are imaged using: both transvaginal and transabdominal transducers to better visualize the pelvic anatomy. Today's ultrasound was compared to previous report from: 04/27/2015 Measurements and comments Uterus: Length Height Width 6.40 2.60 3.50 cm Position: anteverted Comments: symmetrical Cervix and lower uterine segment are: Normal Myometrium: homogeneous Saline infusion sonohysterogram: yes. Indication: thickened endometrium and abnormal bleeding. Following informed consent, the cervix was visualized and prepped with betadine. An insemination catheter was placed into the endometrial cavity and saline was infused while watching with the transvaginalprobe. Findings were: echogenic mass protruding into endometrial cavity 1.5 x 0.5 x 1.1 cm, location: anterior, broad based anterior endometrium 1.0 mm posterior endometrium 0.9 mm Endometrium: 1.9 mm, post SIS Endometrium: 6.10 mm, pre SIS Right ovary: Length Height Width Volume 1.60 1.30 1.40 cm 1.52 ml Comments: appears normal Left ovary: Length Height Width Volume 1.80 1.00 1.50 cm 1.41 ml Comments: appears normal Adnexa: no masses seen Peritoneal fluid: absent Other procedures done: none Impression: Anteverted uterus with endometrium measuring 6.1mm. On saline infusion sonohysterography there is an echogenic focus with broad based attachment to the anterior uterine wall and vascular stalk consistent with endometrial polyp. Endometrium is otherwise smooth and regular measuring 1.9mm post SIS. Normal appearing ovaries bilaterally. Plan: These findings were reviewed with the patient. Marnie will follow up with referring provider. Recommend consultation with shredder tender for hysteroscopy. Patient requested expedited surgery scheduling therefore surgical orders were placed. OB Hx: OB History Para Term AB Living 0 0 0 0 0 0 SAB IAB Ectopic Multiple Live Births 0 0 0 0 0 EMERGENCY ROOM CLINICIAN Hx: No LMP recorded. Patient is postmenopausal. 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 aspirin 81 MG chewable tablet Take 1 Tab by mouth daily. Indications: Heart protection 100 Tab 3 Blood Glucose Monitoring Suppl ([employer] CONTOUR MONITOR) W/DEVICE KIT kit As instructed 1 Each 0 blood glucose ([employer] CONTOUR TEST) strip 4 x daily. Pharmacy dispense brand based on insurance. 50 Each PRN calcium carbonate-vitamin D 600-400 MG-UNIT tablet Take 1 Tablet by mouth daily. cholecalciferol (VITAMIND3) 25 MCG (1000 UT) capsule Take 1 Capsule (1,000 Units) by mouth daily. citalopram (AKA CELEXA) 40 MG tablet Take 1 Tab by mouth daily. Indications: Depression 14 Tab 0 clobetasol (TEMOVATE) 0.05 % ointment Rub into the nails and cuticles nightly before bed 60 g 2 cyclobenzaprine (FLEXERIL) 10 MG tablet Take 1 Tablet (10 mg) by mouth every 8 hours. Wummelkiste G7 Sensor continuous blood glucose device Use for continuous glucose monitoring. Change sensor every 10 days. 90 day supply 9 Each 3 FIBER ADULT GUMMIES OR Indications: 3 gummies po daily in morning furosemide (LASIX) 40 MG tablet Take 1 Tablet (40 mg) by mouth daily. GLUCAGON EMERGENCY 1 MG Kit SMARTSI Milligram(s) SUB-Q Once PRN insulin glargine (TOUJEO SOLOSTAR) 300 UNIT/ML injection Inject 51 Units subcutaneously every evening. Note increase in dose Indications: Insulin- Dependent Diabetes 08/09/2023: Only if pump fails 15 mL 11 lancets (MARTIN MICROLET LANCETS) Use as directed. Pharmacy dispense brand based on insurance. 50 Each prn levothyroxine (SYNTHROID) 150 MCG tablet Take 1 tablet daily for 3 days of the week. Take at least one hour before or two hours after meal. 36 Tablet 3 levothyroxine (SYNTHROID) 175 MCG tablet Take 1 tablet day for 4 days of the week. Take at least one hour before or two hours after meal. 48 Tablet 3 lisinopril (AKA ZESTRIL) 10 MG tablet Take 1 Tab by mouth daily. Indications: High blood pressure & Diabetes 30 Tab 11 methocarbamol (ROBAXIN) 500 MG tablet Take 1 Tablet (500 mg) by mouth three times a day as needed. metroNIDAZOLE (METROCREAM) 0.75 % cream Apply topically two times a day. NOVOLOG 100 UNIT/ML injection (vial) Inject 125 Units subcutaneously daily. omeprazole (AKA PRILOSEC) 20 MG capsule Take 1 tablet by mouth two times a day before meals for 13 days Indications: H-pylori infect 26 Cap 0 ondansetron (AKA ZOFRAN) 4 MG disintegrating tablet [...] Pain. Indications: Acute Pain 10 Tab 0 pregabalin (LYRICA) 300 MG capsule Take 1 Capsule (300 mg) by mouth two times a day. rizatriptan (MAXALT-DIE REAMER) 10 MG disintegrating tablet Take 1 Tablet (10 mg) by mouth as needed. topiramate (TOPAMAX) 100 MG tablet Take 1 Tablet (100 mg) by mouth daily. triamcinolone acetonide (KENALOG) 0.1 % paste apply topically to affected dental area three times aday; use after food and/or drink and/or oral hygiene* valACYclovir (VALTREX) 500 MG tablet Take 1 Tablet (500 mg) by mouth daily as needed. estradiol (ESTRACE) 0.1 MG/GM vaginal cream Insert 0.5 g vaginally two times a week. No facility-administered medications prior to visit. Allergies: Allergies Allergen Reactions Aleve [Naproxen] Gastrointestinal ROS: 10 point ROS negative other than as documented in HPI Assessment/Plan: Marnie Duvall is a 58 y.o. presenting for PMB, endometrial polyp on ultrasound and scheduled hysteroscopy on 12/14/23. Discussed that D&C and hysteroscopy are most thorough way to assess and remove polyps from uterus. Discussed risks of procedure including those associated with anesthesia, even heart attack and at 1/35,000. Discussed risks of infection and uterine trauma, including perforation and injury to other structures such as bowel which could necessitate additional surgery, even laparotomy. Discussed uterine perforation that could preclude complete removal of polyp or inability to complete procedure as planned. Discussed risk of fluid overload and potential need to abort procedure if excessive fluid absorbed. Discussed need for preoperative visit in primary care, need for an adult to drive home and stay with the day of surgery. Discussed common recovery time. Will call to have preop close to home in [place]. Consent to be signed day of surgery. Will add pap smear to procedure if screening is indicated - no records available. Has urodynamic testing on 11/30, reiterated stopping oxybutynin for this testing. Follow up on 12/14 with urogyn. Rx for vaginal estrace filled. Carol Phillips MD documented in this encounter Plan of Treatment Upcoming Encounters Date Type Department Care Team (Late st Contact Info) Description 12/29/2023 8:30 AM CDT [facility] U[facility] [address] [place] [address] Candice Coates MD [address] [address] documented as of this encounter Visit Diagnoses Diagnosis Endometrial polyp- Primary Polyp of corpus uteri PMB (postmenopausal bleeding) Postmenopausal bleeding Genitourinary syndrome of menopause documented in this encounter Additional Health Concerns Infection Onset Date Last Indicated Resolved Time MRSA Comment:Beronica 12-29-14, 01/06/16 12/30/2014 12/30/2014 documented as of this encounter Care Teams Plumber'S Assistant Relationship Specialty Start Date End Date Nikita Gamble MD [address] [place] [address] PCP - General Family Practice 06/23/23 documented as of this encounter
--- OUTSIDE RECORDS SUMMARY | 2023-12-28 23:16 | XMS_ITS | Clinical Summary ---
Author Organization [facility] Address [address] [place] [id number] Care Team Providers Care Industrial Safety And Health Manager Name Role Phone Nikita Gamble MD Primary Care Provider Source Comments You are receiving this document as you are listed as the primary care provider,follow-up provider, or the patient has been referred to you for consultation.This is in compliance with the Medicare and[facility] EHR Incentive Program,which states Providers who transition their patient to another setting of careor provider of care or refers their patient to another provider of care shouldprovide summary care record for each transition of care or referral. [employer] Allergies Active Allergy Reactions Criticality Noted Date Comments Naproxen Gastrointestinal 05/15/2015 Medications Medication Sig Dispensed Refills Start Date End Date Status ondansetron (AKA ZOFRAN) 4 MG disintegrating tablet Take 1 Tablet (4 mg) by mouth every 8 hours as needed for Nausea. Active calcium carbonate-vitamin D 600-400 MG-UNIT tablet Take 1 Tablet by mouth daily. Active Blood Glucose Monitoring Suppl (MARTIN CONTOUR MONITOR) W/DEVICE KIT kit As instructed 1 Each 0 12/30/2014 Active blood glucose (MARTIN CONTOUR TEST) strip 4 x daily. Pharmacy dispense brand based on insurance. 50 Each PRN 12/30/2014 Active lancets (MARTIN MICROLET LANCETS) Use as directed. Pharmacy dispense brand based on insurance. 50 Each prn 12/30/2014 Active oxyCODONE (AKA ROXICODONE) 5 MG immediate release tabletIndications:A cute Pain Take 1-2 Tabs by mouth every 4 hours as needed for Pain. Indications: Acute Pain 10 Tab 0 04/30/2015 Active aspirin 81 MG chewable tabletIndications:H eart protection Take 1 Tab by mouth daily. Indications: Heart protection 100 Tab 3 04/30/2015 Active citalopram (AKA CELEXA) 40 MG tabletIndications:D epression Take 1 Tab by mouth daily. Indications: Depression 14 Tab 0 04/30/2015 Active lisinopril (AKA ZESTRIL) 10 MG tabletIndications:H igh blood pressure & Diabetes Take 1 Tab by mouth daily. Indications: High blood pressure & Diabetes 30 Tab 11 04/30/2015 Active omeprazole (AKA PRILOSEC) 20 MG capsule Take 1 tablet by mouth two times a day before meals for 13 days Indications: H-pylori infect 26 Cap 0 04/30/2015 Active insulin glargine (TOUJEO SOLOSTAR) 300 UNIT/ML injectionIndication s:Type 1 Diabetes Mellitus Inject 51 Units subcutaneously every evening. Note increase in dose Indications: Insulin-Dependent Diabetes 15 mL 11 06/11/2015 Active rizatriptan (MAXALT-SEAMING MACHINE OPERATOR) 10 MG disintegrating tablet Take 1 Tablet (10 mg) by mouth as needed. Active FIBER ADULT GUMMIES ORIndications:3 gummies po daily in morning Indications: 3 gummies po daily in morning Active oxybutynin (DITROPANXL) 10 MG 24 hour release tablet Take 1 Tablet (10 mg) by mouth two times a day. Active amoxicillin (AMOXIL) 500 MG capsule Take 4 Capsules (2,000 mg) by mouth every 24 hours as needed. Active cyclobenzaprine (FLEXERIL) 10 MG tablet Take 1 Tablet (10 mg) by mouth every 8 hours. 12/07/2022 Active valACYclovir (VALTREX) 500 MG tablet Take 1 Tablet (500 mg) by mouth daily as needed. Active pregabalin (LYRICA) 300 MG capsule Take 1 Capsule (300 mg) by mouth two times a day. Active triamcinolone acetonide (KENALOG) 0.1 % paste apply topically to affected dental area three times a day; use after food and/or drink and/or oral hygiene* 11/03/2022 Active furosemide (LASIX) 40 MG tablet Take 1 Tablet (40 mg) by mouth daily. Active GLUCAGON EMERGENCY 1 MG Kit SMARTSI Milligram(s) SUB-Q Once PRN 11/02/2022 Active NOVOLOG 100 UNIT/ML injection (vial) Inject 125 Units subcutaneously daily. 12/09/2022 Active methocarbamol (ROBAXIN) 500 MG tablet Take 1 Tablet (500 mg) by mouth three times a day as needed. Active metroNIDAZOLE (METROCREAM) 0.75 % cream Apply topically two times a day. 08/24/2022 Active levothyroxine (SYNTHROID) 175 MCG tablet Take 1 tablet day for 4 days of the week. Take at least one hour before or two hours after meal. 48 Tablet 3 06/07/2023 Active levothyroxine (SYNTHROID) 150 MCG tablet Take 1 tablet daily for 3 days of the week. Take at least one hour before or two hours after meal. 36 Tablet 3 06/07/2023 Active topiramate (TOPAMAX) 100 MG tablet Take 1 Tablet (100 mg) by mouth daily. 06/23/2023 Active clobetasol (TEMOVATE) 0.05 % ointmentIndications :Nail dystrophy Rub into the nails and cuticles nightly before bed 60 g 2 07/20/2023 Active cholecalciferol (VITAMIND3) 25 MCG (1000 UT) capsule Take 1 Capsule (1,000 Units) by mouth daily. 08/09/2023 Active Dexcom G7 Sensor continuous blood glucose deviceIndications:T ype 1 diabetes mellitus with diabetic neuropathy, unspecified ([facility]) Use for continuous glucose monitoring. Change sensor every 10 days. 90 day supply 9 Each 3 09/14/2023 Active estradiol (ESTRACE) 0.1 MG/GM vaginal creamIndications:Ge nitourinary syndrome of menopause Insert 0.5 g vaginally two times a week. 42.5 g 6 11/24/2023 Active Acetaminophen Extra Strength 500 MG Take 1 Tablet (500 mg) by mouth every 4 hours as needed for Pain for up to 30 days. 180 Tablet 12/14/2023 Active Active Problems Problem Noted Date Diagnosed Date Postmenopausal bleeding 10/17/2023 Bilateral leg edema 06/23/2023 Urge incontinence of urine 06/23/2023 Anemia 06/23/2023 Stage 3b chronic kidney disease 06/23/2023 Obesity (BMI 30-39.9) 06/23/2023 Knee osteoarthritis 01/10/2023 Overview (01/10/2023): bilateral, has had injections. Hurts daily. Pain 7-11/04. Can't be seen at [place], owes them money. They suggested 2 total knee replacements. Has osteophytes and bone spurs. Cortisone injections last 1-2 weeks. Need for SBE (subacute bacterial endocarditis) p rophylaxis 01/10/2023 Obstructive sleep apnea syndrome 01/10/2023 S/p nephrectomy 01/10/2023 Overview (01/10/2023): Congenital disorder of kidney. Latent tuberculosis diagnosed by blood test 12/26 Benign essential hypertension 11/07/2019 Diabetic ketoacidosis withou t coma associated with type 1 diabetes mellitus 06/28/2016 Anxiety 11/06/2015 Diabetic peripheral neuropat hy associated with type 1 diabetes mellitus 10/28/2015 MRSA (methicillin resistant Staphylococcus aureu s) 12/30/2014 Overview (12/30/2014): Beronica 12-29-14 History of pulmonary embolism 06/07/2014 Generalized tonic-clonic seizure 02/03/2014 Overview (01/10/2023): Due to hypoglycemia. Has had 2-3 seizures over the last 8-9 years. Depression with anxiety 05/31/2013 Overview (01/10/2023): Med trials: Zoloft, wellbutrin, prozac, ambien. Klonopin until 11/2013 and was switched to hydroxyzine with fair benefit. Trazodone doesn't help. 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 Encounters Date Type Department Care Team Description 12/14/2023 10:04 AM CDT Anesthesia Event Operating Room [address] [place] [id number] Sridhar Walter MD Lange, Beth N, APRN, CHI 12/14/2023 10:00 AM CDT - 12/14/2023 11:15 AM CDT Surgery [facility] Operating Room [address] [place] [address] Carol Phillips MD HYSTEROSCOPY WITH TRUCLEAR, polypectomy, PAP SMEAR AND VULVAR BIOPSY 12/14/2023 8:02 AM CDT - 12/14/2023 12:46 PM CDT Hospital Encounter Operating Room [address] [place] [address] Carol Phillips MD Postmenopausal bleeding Discharge Disposition: Home 12/07/2023 Telephone [facility] [address] [place] [address] Logan Parra PA-C 12/01/2023 8:15 AM CDT Office [facility] [address] [place] [address] Mixed stress and urge urinary incontinence (Primary Dx) 11/22/2023 3:40 PM CDT Telemedicine [facility] [address] [place] [address] Carol Phillips MD Endometrial polyp (Primary Dx); PMB (postmenopausal bleeding); Genitourinary syndrome of menopause 10/27/2023 3:00 PM CDT Lab Visit [facility] [address] [place] [address] Routine medical exam 10/21/2023 Telephone [facility] [address] [place] [address] Carol Phillips MD Surgery Scheduling 10/17/2023 1:00 PM CDT Ancillary Procedure [facility] OB Ultrasound [address] [place] [address] Candice Coates MD Postmenopausal bleeding (Primary Dx) 10/17/2023 10:00 AM CDT Office Visit [facility] UroGynecology [address] [place] [address] Candice Coates MD Postmenopausal bleeding (Primary Dx); OAB (overactive bladder); Urge incontinence; Mixed stress and urge urinary incontinence; Urinary retention 10/07/2023 Telephone [facility] [address] [place] [phone] Candice Coates MD from Last 3 Months Immunizations Name Administration Dates Next Due Influenza IIV4 (Quadrivalent) 0.5mL (87640) 07/2014 Family History Medical History Relation Name Comments Emphysema Father Relation Name Status Comments Father Social History Tobacco Use Types Packs/Day Years Used Date Smoking Tobacco: Never Smokeless Tobacco: Never Tobacco Cessation:Counseling Given: Not Answered Comments:N/A Alcohol Use Standard Drinks/Week Comments Not [...] Mass Index 33.47 12/14/2023 8:18 AM CDT Plan of Treatment Upcoming Encounters Date Type Department Care Team (Late st Contact Info) Description 12/29/2023 8:30 AM CDT Telemedicine [facility] UroGynecology [address] [place] [phone] Candice Coates MD [address] [facility] [address] [place] [address] Health Maintenance Due Date Last Done Comments Cervical Cancer Screening Due 1965 Colon Cancer Screening Plan Due 1965 Diabetes: Eye Exam 1965 Diabetes: Foot Exam 1965 Diabetes: Lipid Panel 1965 Hep C Screening (Preventive Services) 1965 MTM Targeted 1965 Mammogram 1965 Pneumococcal (1 - PCV) 1971 HIV Screening (Preventive Services) 1981 Adult Preventive Visit 1983 HepB (1) 02/29/1984 Diabetes: HGBA1C 11/05/2023 08/05/2023, , 02/07/2023, Additional history exists COVID-19 Vaccine ( season) 2023 06/12/2020, 05/22/2020 Influenza (#1) 2023 02/14/2023, 1009/2021, 12/16/2020, Additional history exists Diabetes: Urine Microalbumin 06/22/2024 06/23/2023, 02/07/2023 Diabetes: Creatinine 08/04/2024 08/05/2023, 06/23/2023, 02/18/2023, Additional history exists DTaP/Tdap/Td (5 - Tdap) 01/11/2026 01/12/20 16, 01/12/2016, 08/25/2006, Additional history exists Zoster/Shingles Completed 06/07/2022, 02/10/2022 HepA Aged Out No longer eligi ble based on patient's age to complete this topic Hib Aged Out No longer eligi ble based on patient's age to complete this topic IPV (Polio) Aged Out No longer eligi ble based on patient's age to complete this topic RSV Aged Out No longer eligi ble based [...] BLOOD POCT Routine 12/14/2023 9:03 AM CDT DNA ANALYSIS DISCRETE SEQUENCE VARIATION PANEL (BLOOD) Routine 10/27/2023 3:14 PM CDT Routine medical exam OBGYN PELVIC/PROCUREMENT 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 LOGISTICS ULTRASOUND Routine 10/17/2023 1:39 PM CDT Postmenopausal bleeding URINALYSIS ROUTINE, MICRO/CULTURE IF POS Routine 10/17/2023 11:24 AM CDT OAB (overactive bladder) Urge incontinence RENAL FUNCTION PANEL Routine 08/05/2023 2:00 PM CDT Stage 3b chronic kidney disease (HRC) HGB A1C Routine 08/05/2023 2:00 PM CDT Type 1 diabetes mellitus with diabetic neuropathy, unspecified (HRC) ALBUMIN/CREAT RATIO Routine 06/23/2023 1 2:28 PM CDT Stage 3b chronic kidney disease (HRC) from Last 3 Months or Most Recently Relevant to Health Maintenance Results * Surgical Path (12/14/2023 11:04 AM CDT) Case Report Surgical Pathology ?Case: [id number] ? Authorizing Provider: ??Carol Phillips MD ?Collected: ? 12/14/2023 1104 ? Ordering Location: ? [facility] Operating Room ?Received: ?12/14/2023 1132 ? Pathologist: ? Joann Mckeon MD ? Specimens: ?? A) - Labia, left, Left superior labial biopsy ? B) - Vulva, Left vestibule ? C) - Uterus, Endometrial currettings ? 12/22/2023 1:37 PM [facility] FINAL DIAGNOSIS A. Skin, Labia, left superior, [...] Clinical correlation is recommended. 12/22/2023 1:37 PM [facility] Clinical Information Postmenopausal bleeding 12/22/2023 1:37 PM [facility] Microscopic Description A. Microscopic examination including multiple deeper recut sections is performed. B/C. Microscopic examination is performed. 12/22/2023 1:37 PM [facility] Special Stains The stain controls have been reviewed and stain appropriately. 12/22/2023 1:37 PM [facility] Gross Description A: The specimen is received [...] in 1 cassette. TK 12/22/2023 1:37 PM [facility] Embedded Images 12/22/2023 1:37 PM [facility] Tissue GENITAL LABIUM STRUCTURE / Unknown 12/14/2023 11:04 AM CDT 12/14/2023 11:32 AM CDT Tissue specimen (specimen) VULVAL STRUCTURE / Unknown 12/14/2023 11:09 AM CDT 12/14/2023 11:32 AM CDT Tissue specimen (specimen) UTERINE STRUCTURE / Unknown 12/14/2023 11:16 AM CDT 12/14/2023 11:32 AM CDT Carol Phillips MD LAB PATHOLOGY [address] [address], [facility] [[email or web address]] * Glucose, Whole Blood POCT (12/14/2023 9:03 AM CDT) Glucose, Whole Blood 174 70 - 180 mg/dL 12/14/2023 9:05 AM CDT [facility] Performing Location [facility] PSCU 12/14/2023 9:05 AM CDT [facility] Blood 12/14/2023 9:03 AM CDT 12/14/2023 9:05 AM CDT Carol Phillips MD LAB_1 Performing Organization Address City/State/[facility] Co de Phone Number [address] * DNA Analysis Discrete Sequence Variation Panel (Blood) (Initial) (10/27/2023 3:14 PM CDT) Date Sample Received at Testing Lab 10/29/2023 12/28/2023 4:09 PM CDT [facility] Familial Hypercholesterolemia Not Detected 12/28/2023 4:09 PM CDT [facility] Comment: Pathogenic variant not detected. Genes Tested: BRCA1, BRCA2, MLH1, MSH2, MSH6, PMS2, EPCAM, APOB, LDLR, LDLRAP1, PCSK9 Test Description: [facility] [facility] Tier One Population Screen is a screening [...] This test was developed and validated by [facility]. This test has not been cleared or approved by the [place] Food and Drug Administration (FDA). The [facility] laboratory is accredited by the College of [employer] Pathologists (CAP) and certified under the Clinical Laboratory Improvement Amendments (CLIA #: [id number]) to perform high-complexity clinical tests. This test is used for clinical purposes. It should not be regarded as investigational or for research. Methods and Limitations: Extracted DNA is enriched for targeted regions and then sequenced using the [employer] Exome+ (R) assay on an Illumina DNA sequencing system. Data is then aligned to a modified version of GRCh38 and all genes are analyzed using the MIREYA transcript and MIREYA Plus Clinical transcript, when available. Small variant calling is completed using a customized version of [employer] software, augmented by a proprietary small variant [...] is based upon guidelines published by the [place] [employer] and Gen[employer] (ACMG) and the Association for Molecular Pathology (AMP) or their modification by [employer] Variant Curation Expert Panels when available. Interpretation is limited to the transcripts indicated on the report and +/- 10 bp into intronic regions, except as noted below. [place] variant classifications include pathogenic, likely pathogenic, variant [...] the promoter. Sequencing Location: Sequencing done at [facility] [address] [place] [address], [address], [place] [address] ([facility]# [id number]) Designation: Venkata Ma, PhD, FACG Email: [email or web address] Breast and Ovarian Cancer Syndrome Not Detected 12/28/2023 4:09 PM CDT [facility] Comment:Pathogenic variant n ot detected. Pleitez Syndrome Not Detected 12/28/2023 4:09 PM CDT [facility] Comment:Pathogenic variant n ot detected. Blood or Saliva VENOUS BLOOD SPECIMEN / Unknown 10/27/2023 3:14 PM CDT 10/27/2023 3:14 PM CDT Everardo Go MD LAB_1 [place] [address] [facility] [address] [place] [address] * (ABNORMAL) OBGYN Pelvic/Printing Machine Mechanic Ultrasound (10/17/2023 1:39 PM CDT) Uterus AP Diameter (Height) 2.60 cm EXTERNAL RESULTS Uterus Longitudinal Diameter (Length) 6.40 cm EXTERNAL RESULTS Uterus Transverse Diameter (Width) 3.50 cm EXTERNAL RESULTS Uterus Volume 30.49 ml MARINE MACHINIST AL RESULTS Endometrium Thickness 6.10 mm EXTERNAL [...] from the original result was not included. PROCUREMENT 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 LOGISTICS Ultrasound Exam performed on: ??10/17/2023 Referring provider: Candice Coates MD Referring clinic: [facility] UR[facility]YNECOLOG[facility] Clinical indications: Postmenopausal bleeding Internet Security Specialist(s) initials: The pelvic organs are imaged [...] up with referring provider. ??Recommend consultation with roof mechanic for hysteroscopy. ??Patient requested expedited surgery scheduling therefore surgical orders were placed. ?? Carol Phillips MD Candice Coates MD RAD US * (ABNORMAL) Urinalysis Routine, Micro/Culture if Pos: Straight catheter (10/17/2023 11:24 AM CDT) Urine Culture Comment Urinalysis results do not meet criteria for urine culture reflex. 10/17/2023 11:41 AM [facility] Urine Color Yellow 10/17/2023 11:41 AM [facility] Urine Clarity Clear Clear 10/17/2023 11:41 AM [facility] Specific [place], Urine <=1.005(A) 1.005 - 1.030 10/17/2023 11:41 AM [facility] PH Urine 6.0 5.0 - 8.0 10/17/2023 11:41 AM [facility] Protein, Urine Qual (mg/dL) Negative Neg/Trace 10/17/2023 11:41 AM [facility] Glucose Urine Qual (mg/dL) Negative Negative 10/17/2023 11:41 AM [facility] Ketones, Urine (mg/dL) Negative Negative 10/17/2023 11:41 AM [facility] Urobilinogen, Urine (EU/dL) 0.2 <2.0 10/17/2023 11:41 AM [facility] Bilirubin Urine Negative Negative 10/17/2023 11:41 AM [facility] Blood, Urine Negative Neg/Trace 10/17/2023 11:41 AM [facility] Nitrite Urine Negative Negative 10/17/2023 11:41 AM [facility] Leukocyte Est. Negative Negative 10/17/2023 11:41 AM [facility] Urine Source Straight catheter 10/17/2023 11:41 AM [facility] Urine (Straight catheter) Non-blood Collection / Unknown 10/17/2023 11:24 AM CDT 10/17/2023 11:39 AM CDT Candice Coates MD LAB_1 [facility] [address] [place], [place] [id number] [place] [address] * (ABNORMAL) Renal Function Panel (08/05/2023 2:00 PM CDT) Sodium 135(L) 136 - 145 mmol/L 08/05/2023 6:52 PM T [facility] Potassium 4.7 3.5 - 5.1 mmol/L 08/05/2023 6:52 PM T [facility] Chloride 102 98 - 109 mmol/L 08/05/2023 6:52 PM T [facility] CO2 23 20 - 29 mmol/L 08/05/2023 6:52 PM [facility] Anion Gap 10 6 - 16 mmol/L 08/05/2023 6:52 PM [facility] Calcium 9.4 8.4 - 10.4 mg/dL 08/05/2023 6:52 PM T [facility] BUN 24 7 - 26 mg/dL 08/05/2023 6:52 PM [facility] Creatinine 1.62(H) 0.55 - 1.02 mg/dL 08/05/2023 6:52 PM [facility] Albumin 3.6 3.5 - 5.0 g/dL 08/05/2023 6:52 PM T [facility] Phosphorus 2.8 2.3 - 4.7 mg/dL 08/05/2023 6:52 PM T [facility] Glucose 93 70 - 100 mg/dL 08/05/2023 6:52 PM [facility] Comment:The given reference range is for the fasting state. Non-fasting reference range for glucose is 70 - 180 mg/dL. GFR, Estimated 37(L) >60 mL/min/1. 73m2 08/05/2023 6:52 PM [facility] Hours Fasting 0.1 8 - 12 Hours 08/05/2023 6:52 PM [facility] Blood Venipuncture / Unknown 08/05/2023 2:00 PM CDT 08/05/2023 2:00 PM CDT Nancy Stock MD LAB_1 [facility] [address] * (ABNORMAL) HgbA1c - Collect in Lab (08/05/2023 2:00 PM CDT) Pathologist [facility] Hemoglobin A1C 8.3(H) <=5.6 % 08/05/2023 7:54 PM CDT [facility] Estimated Average Glucose (Calc) 192 < 117 mg/dL 08/05/2023 7:54 PM CDT [facility] Comment:Estimated average gl ucose (eAG) converts A1c into glucose units (mg/dL) and estimates average glucose over the past approximately 3 months. The eAG reference interval (<117 mg/dL) corresponds to an A1c of <5.7%. Blood Venipuncture / Unknown 08/05/2023 2:00 PM CDT 08/05/2023 2:00 PM CDT Narrative [facility] - 08/05/2023 7:54 PM CDT For patients not previously diagnosed with diabetes: 5.7-6.4%: Increased risk for diabetes 6.5% and greater: Diagnostic for diabetes For patients diagnosed with diabetes: <8.0%: Goal of therapy for ages 18-75 Clinicians may recommend a higher or lower goal for specific individuals. Logan Parra PA-C LAB_1 Performing Organization Address [facility] Co de Phone Number [facility] [address] * (ABNORMAL) Albumin/Creatinine Ratio,Random Urine (06/23/2023 12:28 PM CDT) Albumin/Creati nine Ratio, Urine, Random 75(H) <30 mg/g 06/23/2023 7:38 PM CDT [facility] Albumin, Urine, Random 44.2 mg/L 06/23/2023 7:38 PM CDT [facility] Creatinine, Urine, Random 59 >20 mg/dL mg/dL 06/23/2023 7:38 PM CDT [facility] Urine Non-blood Collection / Unknown 06/23/2023 12:28 PM CDT 06/23/2023 12:28 PM CDT Nancy Stock MD LAB_1 [facility] [address] [address], [facility] [[email or web address]] from Last 3 Months or Most Recently Relevant to Health Maintenance Additional Health Concerns Infection Onset Date Last Indicated MRSA Comment:[place]eron[place] 12-29-14, 01/06/16 12/30/2014 12/30/2014 Advance Directives * Full Code (Latest Code Status on File) Date Activated Date Inactivated Comments 04/28/2015 1:31 AM 04/30/2015 6:39 PM * Full Code Date Activated Date Inactivated Comments 12/29/2014 11:37 AM 12/30/2014 6:20 PM Care Teams Industrial Safety And Health Manager Relationship Specialty Start Date End Date Nikita Gamble MD [address] [place] [address] PCP - General Family Practice 06/23/23
--- OUTSIDE RECORDS SUMMARY | 2023-12-28 23:16 | XMS_ITS | Encounter Summary ---
Author Organization [employer] Address [address] [place] [address] Care Team Providers Care Asic Engineer Name Role Phone Nikita Gamble MD Primary Care Provider Reason for Visit * Reason Onset Date Comments Urodynamics 12/01/2023 Urodynamics 12/28/2023 Encounter Details Date Type Department Care Team (Latest Contact Info) Description 12/01/2023 8:15 AM CDT Office Visit [facility] [address] [place] [address] Mixed stress and urge urinary incontinence (Primary Dx) Social History Tobacco Use Types [...] this encounter Patient Instructions * Patient Instructions* Genet Varma LPN - 12/01/2023 8:15 AM CDT URODYNAMICS FOLLOW-UP INSTRUCTIONS Thank you for choosing us for your health care needs. You have just completed a Urodynamics Evaluation. You may resume your usual activities and diet. To avoid complications, please drink 4 to 6 large glasses of water or juice today and tomorrow. (Ifsuffering from incomplete emptying, please ask the administrative sales assistant about specific directions). There are generally no adverse of long lasting side effects from Urodynamics testing. You may, however, experience a burning sensation of pass a small amount of blood when urinating for the next 24 to 48 hours. This is considered normal following catheterization. Please contact Dr. Candice Yap at [phone] if any problems should arise or you experience any ofthe following after 48 to 72 hours: Burning, frequency, urgency or pain with urination Blood in urine Lower back pain Fever Foul odor The above symptoms can be caused by an infection of the urinary tract / bladder (UTI) and you may need to be seen in our office for a follow up visit. documented in this encounter Progress Notes * Candice Yap MD - 12/01/2023 8:15 AM CDTAddended by: CANDICE YAP on: 12/28/2023 04:40 PM Modules accepted: Orders * Genet Varma LPN - 12/01/2023 8:15 AM CDT Established patient of Dr. Candice Yap, dx: Incontinence, Urinary Urgency. Reviewed meds, allergies.Pt did not have diaries. Informed consent obtained. Urod eval completed. Pt. Given aftercare re:selfcare after cath insert and given AVS with post-UDS instructions. Test completed and given to Dr. Candice Yap for review. Genet Armstrong LPN Uninstrumented Uroflow with EMG: Test Volume voluntarily voided (cc) 89 Post void residual urine (cc) cathed 20 Maximum flow rate (ml/sec) 14 Average flow rate (ml/sec) 5.9 Was this typical flow for the patient? Premium able to go, slight urge CMG Patient position (sitting/standing) sitting Fill rate (ml/min) 30-50 Bladder capacity (=amt voided + PVR) (cc) 676 Total volume leaked during test (cc) 28 Pressure Flow with EMG: Volume of Saline infused (cc) 638 Maximum flow rate (ml/sec) 27 Average flow rate (ml/sec) 15 Volume voided (cc) 654 Post void residual urine (cc) cathed 22 Post Uroflow with EMG: (if needed) Volume of saline infused (cc) Maximum flow rate (ml/sec) Average flow rate (ml/sec) Volume voided (cc) Post void residual urine (cc) calculated * Candice Yap MD - 12/01/2023 8:15 AM CDT Date: 12/28/2023 Complex Uroflow: (Performed using computerized uroflometry) Voided Volume: 89ml PVR: 20cc Qmax: 14ml/sec Qav.9ml/sec Shape: cortés shaped Comments: normal uroflow Complex Cystometrogram: Performed using a #8 Thai dual lumen urethral catheter with simultaneous rectal catheter placement for abdominal pressure monitoring. Saline was instilled at rate of 30 ml/min. 1st Sensation: 153ml 1st Desire: 237ml Strong Desire: 410ml Cystometric Capacity: 611ml Comments: Sensation: normal Compliance: normal Capacity: normal Detrusor Overactivity: was seen at 252cc with sensation of desire but without leak, at 411mls with leakage and was seen again at capacity of 611cc sensation of urgency but no leak Leak Pressure Test: Performed utilizing both urethral and rectal balloon catheters for simultaneousvesical and abdominal pressure monitoring. Straining maneuvers consisting of coughing and graded Valsalva efforts were performed in an effort to induce leakage. Leak was seen with Valsalva leak point pressure of 225cm/H2O at a volume of 156c and cough with pressure of 678alA5S and volume of 156cc Prolapse reduction stress test was not performed. Urethral Pressure Profile: This was performed using a #8 Thai urethral catheter with slow constant pull and pressurized slow drip system. UPP MUCP Pull #1 76cm/H2O Pull #2 73cm/H2O Pull #3 72cm/H2O Average 74cm/H2O Pressure Flow Test: Performed utilizing both bladder and rectal catheters for detrusor, vesical, and abdominal pressure monitoring. Attempted to Void: Yes Detrusor Contraction: Present - max pdet 28cm/H2O Infused Volume: 611ml Qmax: 27ml/sec Pdet at Qmax: 28cm/H2O Average flow rate: 15ml/sec Voided Volume: 654ml PVR: 22cc Comments: normal voiding phase, void by detrusor contraction and some valsalva effort, normal continuous cortés shaped flow pattern EMG: Performed using perineal patch electrodes. Recruitment: Normal Activity During Voiding: Synergic Overall Impression: Summary of Storage Parameters: Normal KIYA: present DO: present with leak Voiding: complete voiding by detrusor contraction and some valsalva effort as well. Normal post void residual Recommendations: A/P: Manrie Duvall is a 58 y.o. F with mixed urinary incontinence. Both stress and detrusor overactivity incontinence were identified on testing. Normal voiding phase, normal capacity and normal sensation. ICD-10-CM 1. Mixed stress and urge urinary incontinence N39.46 84397 Cystometrogram W/Field Artillery Crewmember&Up 49501 Emg Anal/Ureth Sphincter-Not Needle 19366 Intraabdominal Pressure Test documented in this encounter Plan of Treatment Upcoming Encounters Date Type Department Care Team (Late st Contact Info) Description 12/29/2023 8:30 AM CDT [facility] [address] [place] [address] Candice Yap MD [address] [place] [address] documented as of this encounter Visit Diagnoses Diagnosis Mixed stress and urge urinary incontinence- Primary Mixed incontinence urge and stress (male)(female) documented in this encounter Additional Health Concerns Infection Onset Date Last Indicated Resolved Time MRSA Comment:Beronica 12-29-14, 01/06/16 12/30/2014 12/30/2014 documented as of this encounter Care Teams Asic Engineer Relationship Specialty Start Date End Date Nikita Gamble MD [address] [place] [address] PCP - General Family Practice 06/23/23 documented as of this encounter
--- OUTSIDE RECORDS SUMMARY | 2023-12-28 23:16 | XMS_ITS | Encounter Summary ---
Author Organization [facility] Address [address], [place] [address] Care Team Providers Care Certified Orthotic Fitter Name Role Phone Nikita Gamble MD Primary Care Provider Encounter Details Date Type Department Care Team (Late Contact Info) Description 08/31/2023 E-Visit [facility] [address] [address] Mychart, [place] [address] Social History Tobacco Use Types Packs/Day Years [...] [facility] [address] [place] [address] Candice Coates MD [address] [address] documented as of this encounter Visit Diagnoses Not on filedocumented in this encounter Additional Health Concerns Infection Onset Date Last Indicated Resolved Time MRSA Comment:Justinelena -4-15, 01/06/16 12/30/2014 12/30/2014 documented as of this encounter Care Teams Certified Orthotic Fitter Relationship Specialty Start Date End Date Nikita Gamble MD [address] [place] [address] PCP - General Family Practice 06/23/23 documented as of this encounter
--- OUTSIDE RECORDS SUMMARY | 2023-12-28 23:17 | XMS_ITS | Encounter Summary ---
Author Organization [facility] Address [address] [place] [address]. [place] [address] Care Team Providers Care Run Lead Name Role Phone Stuart Jocelyn Bran YANEZ Unavailable [phone] Nikita Gamble MD Primary Care Provider Naveen Casiano MD Unavailable [phone] Mikki Blevins MD Unavailable [phone] Mikki Blevins MD Unavailable [phone] Mindi Llanes PA-C Unavailable [phone] Encounter Details Date Type Department Care Team (Late st Contact Info) Description 09/21/2021 MyC Medical Advice Initial Department Lucille Chambers Social History Tobacco Use Types Packs/Day Years Used Date Smoking Tobacco: Never Smokeless Tobacco: Never Alcohol Use Standard Drinks/Week Comments Yes 0 (1 standard drink = 0.6 oz pur e alcohol) rare PHQ-2 Answer Date Recorded PHQ-2 Score 0 02/26/2020 Sex and Gender Information Value Date Recorded Sex Assigned at Female 03/04/2020 12:33 PM PATTERN GRADER Gender Identity Female 03/04/2020 12:33 PM PATTERN GRADER Sexual Orientation Straight 03/04/2020 12 :33 PM PATTERN GRADER documented as of this encounter Plan of Treatment Not on file documented as of this encounter Visit Diagnoses Not on filedocumented in this encounter Additional Health Concerns Assessment Noted Time PHQ-9 Depression Total Score: 0 02/26/20 20 1:30 PM PATTERN GRADER documented as of this encounter Care Teams Run Lead Relationship Specialty Start Date End Date Nikita Gamble MD [address] [place] [address] PCP - General Family Medicine 05/26/20 Jocelyn Davidson, RENATA [address] [place] [address] Spray Mixer Dietitian, Registered 05/25/18 [place] [address] [place] [address] Assigned PCP 11/16/20 12/18/23 Mikki Blevins MD [address] [place] [address] Endocrinology, Diabetes, and Metabolism 05/07/21 [place] [address] Assigned Endocrinology Provider 08/02/21 01/28/23 Mindi Llanes PA-C [address] [facility] [address] [place] [address] [place] [address] Assigned Surgical Provider 09/26/21 08/17/23 documented as of this encounter
--- OUTSIDE RECORDS SUMMARY | 2023-12-28 23:17 | XMS_ITS | Encounter Summary ---
Author Organization [facility] Address [address] [place] [address]. [place] [address] Care Team Providers Care Corporate Risk Analyst Name Role Phone Antonio Annette Monroe APRN LABORER POWERHOUSE Unavailable Goran Lloyd MD Primary Care Provider Jocelyn Davidson RD Unavailable [phone] Tamar Murphy APRN LABORER POWERHOUSE Unavailable [phone] Nikita Gamble MD Primary Care Provider Naveen Casiano MD Unavailable [phone] Harlan Lin MD Unavailable Milagro vailable Mikki Blevins MD Unavailable [phone] Mikki Blevins MD Unavailable [phone] Mindi Llanes PA-C Unavailable [phone] Encounter Details Date Type Department Care Team (Late st Contact Info) Description 10/17/2018 [facility] [address] [address] Ashok Bella, RN Social History Tobacco Use Types Packs/Day Years Used Date Smoking Tobacco: Never Smokeless Tobacco: Never Alcohol Use Standard Drinks/Week Comments Yes 0 (1 standard drink = 0.6 oz pur e alcohol) rare Sex and Gender Information Value Date Recorded Sex Assigned at Female 03/04/2020 12:33 PM SAW CLEANER Gender Identity Female 03/04/2020 12:33 PM SAW CLEANER Sexual Orientation Straight 03/04/2020 12 :33 PM SAW CLEANER documented as of this encounter Plan of Treatment Not on file documented as of this encounter Visit Diagnoses Not on filedocumented in this encounter Additional Health Concerns Infection Onset Date Last Indicated Resolved Time Rule Out COVID-19 02/26/2020 02/26/2020 02/27/2020 4:32 PM SAW CLEANER documented as of this encounter Care Teams Corporate Risk Analyst Relationship Specialty [place] [address] [place], [place] [id number] PCP - General Family Practice 12/29/17 05/21/20 Nikita Gamble MD [address] [place] [phone] PCP - General Family Medicine 05/26/20 Annette Alvarez APRN LABORER POWERHOUSE [address] [place], [place] [id number] Nurse Practitioner Clinical Nurse Specialist 03/22/17 10/21/[address] [place] [id number] Dynamometer Tester Dietitian, Registered 05/25/18 Tamar Murphy APRN LABORER POWERHOUSE [address] [place] [phone] Assigned PCP 02/08/20 11/15/20 [place] [address] [place], [place] [id number] Assigned PCP 11/16/20 12/18/23 Harlan Lin MD NO INFO AVAILABLE Assigned Endocrinology Provider 12/07/20 08/01/21 Mikki Blevins MD [address] [place] [address] Endocrinology, Diabetes, and Metabolism 05/07/21 [place] [address] Assigned Endocrinology Provider 08/02/21 01/28/23 Mindi Llanes PA-C [address] [place] [address] Assigned Surgical Provider 09/26/21 08/17/23 documented as of this encounter
--- OUTSIDE RECORDS SUMMARY | 2023-12-28 23:17 | XMS_ITS | Encounter Summary ---
Author Organization [facility] Address [address] [place] [address]. [place] [address] Care Team Providers Care Gunner'S Mate Name Role Phone Jocelyn Davidson RENATA Unavailable [phone] Nikita Gamble MD Primary Care Provider Naveen Casiano MD Unavailable [phone] Harlan Lin MD Unavailable Milagro vailable Mikki Blevins MD Unavailable [phone] Mikki Blevins MD Unavailable [phone] Mindi Llanes PA-C Unavailable [phone] Encounter Details Date Type Department Care Team (Late st Contact Info) Description 12/02/2020 MyC Medical Advice [address] [phone] Tamar Tristan Social History Tobacco Use Types Packs/Day Years Used Date Smoking Tobacco: Never Smokeless Tobacco: Never Alcohol Use Standard Drinks/Week Comments Yes 0 (1 standard drink = 0.6 oz pur e alcohol) rare PHQ-2 Answer Date Recorded PHQ-2 Score 0 02/26/2020 Sex and Gender Information Value Date Recorded Sex Assigned at Female 03/04/2020 12:33 PM GRAB SETTER Gender Identity Female 03/04/2020 12:33 PM GRAB SETTER Sexual Orientation Straight 03/04/2020 12 :33 PM GRAB SETTER COVID-19 Exposure Response Date Recorded In [...] Total Score: 0 02/26/20 20 1:30 PM GRAB SETTER documented as of this encounter Care Teams Gunner'S Mate Relationship Specialty Start Date End Date Nikita Gamble MD [place] [address] [place] [address] PCP - General Family Medicine 05/26/[address] [place] [address] Vehicle Modification Technician Dietitian, Registered 05/25/18 [place] [address] [place] [address] Assigned PCP 11/16/20 12/18/23 Harlan Lin MD NO INFO AVAILABLE Assigned Endocrinology Provider 12/07/20 08/01/21 Mikki Blevins MD [address] [place] [address] Endocrinology, Diabetes, and Metabolism 05/07/21 [place] [address] Assigned Endocrinology Provider 08/02/21 01/28/23 Mindi Llanes PA-C [address] [place] [address] [place] [address] Assigned Surgical Provider 09/26/21 08/17/23 documented as of this encounter
--- OUTSIDE RECORDS SUMMARY | 2023-12-28 23:17 | XMS_ITS | Encounter Summary ---
Author Organization [facility] Address [address] [place] [address]. [place] [address] Care Team Providers Care Store Hand Name Role Phone Stuart Jocelyn Bran YANEZ Unavailable [phone] Nikita Gamble MD Primary Care Provider Naveen Casiano MD Unavailable [phone] Mikki Blevins MD Unavailable [phone] Mikki Blevins MD Unavailable [phone] Mindi Llanes PA-C Unavailable [phone] Encounter Details Date Type Department Care Team (Late st Contact Info) Description 10/20/2021 [facility] Adv[facility] [address] [address] Diandra Giordano, MAURICE Social History Tobacco Use Types Packs/Day Years Used Date Smoking Tobacco: Never Smokeless Tobacco: Never Alcohol Use Standard Drinks/Week Comments Yes 0 (1 standard drink = 0.6 oz pur e alcohol) rare PHQ-2 Answer Date Recorded PHQ-2 Score 0 02/26/2020 Sex and Gender Information Value Date Recorded Sex Assigned at Female 03/04/2020 12:33 PM ROTARY PLANER SET UP OPERATOR Gender Identity Female 03/04/2020 12:33 PM ROTARY PLANER SET UP OPERATOR Sexual Orientation Straight 03/04/2020 12 :33 PM ROTARY PLANER SET UP OPERATOR documented as of this encounter Plan of Treatment Not on file documented as of this encounter Visit Diagnoses Not on filedocumented in this encounter Additional Health Concerns Assessment Noted Time PHQ-9 Depression Total Score: 0 02/26/20 20 1:30 PM ROTARY PLANER SET UP OPERATOR documented as of this encounter Care Teams Store Hand Relationship Specialty Start Date End Date Nikita Gamble MD [place] [address] [place] [address] PCP - General Family Medicine 05/26/20 Jocelyn Davidson, RENATA [place] [address] [place] [address] Yarn Handler Dietitian, Registered 05/25/18 [place] [address] [place] [address] Assigned PCP 11/16/20 12/18/23 Mikki Blevins MD [address] [place] [address] Endocrinology, Diabetes, and Metabolism 05/07/21 [place] [address] Assigned Endocrinology Provider 08/02/21 01/28/23 Mindi Llanes PA-C [address] [facility] [place] [address] [place] [address] Assigned Surgical Provider 09/26/21 08/17/23 documented as of this encounter
--- OUTSIDE RECORDS SUMMARY | 2023-12-28 23:17 | XMS_ITS | Encounter Summary ---
Author Organization [facility] Address [address] [place] [address]. [place] [address] Care Team Providers Care Marble Installer Supervisor Name Role Phone StuartJocelyn desouza Bran YANEZ Unavailable [phone] Nikita Gamble MD Primary Care Provider Naveen Casiano MD Unavailable [phone] Mikki Blevins MD Unavailable [phone] Mikki Blevins MD Unavailable [phone] Mindi Llanes PA-C Unavailable [phone] Encounter Details Date Type Department Care Team (Late st Contact Info) Description 02/11/2022 MyC Medical Advice [facility] [address] [place] [address] Alix Marquez, VASQUEZ [facility] [address] [place] [address] [address] [place] [address] Social History Tobacco Use Types Packs/Day Years Used Date Smoking Tobacco: Never Smokeless Tobacco: Never Alcohol Use Standard Drinks/Week Comments Yes 0 (1 standard drink = 0.6 oz pur e alcohol) rare PHQ-2 Answer Date Recorded PHQ-2 Score 0 02/26/2020 Sex and Gender Information Value Date Recorded Sex Assigned at Female 03/04/2020 12:33 PM BED SPRING MAKER Gender Identity Female 03/04/2020 12:33 PM BED SPRING MAKER Sexual Orientation Straight 03/04/2020 12 :33 PM BED SPRING MAKER documented as of this encounter Plan of Treatment Not on file documented as of this encounter Visit Diagnoses Not on filedocumented in this encounter Additional Health Concerns Assessment Noted Time PHQ-9 Depression Total Score: 0 02/26/20 20 1:30 PM BED SPRING MAKER documented as of this encounter Care Teams Marble Installer Supervisor Relationship Specialty Start Date End Date Nikita Gamble MD [place] [address] [place] [address] PCP - General Family Medicine 05/26/[address] [place] [address] Instructor Flying Dietitian, Registered 05/25/18 [place] [address] [place] [address] Assigned PCP 11/16/20 12/18/23 Mikki Blevins MD [address] [place] [address] Endocrinology, Diabetes, and Metabolism 05/07/21 Mikki [place]levins [place] [address] Assigned Endocrinology Provider 08/02/21 01/28/23 Mindi Llanes PA-C 6[address] [facility] [address] [place] [id number] Assigned Surgical Provider 09/26/21 08/17/23 documented as of this encounter
--- OUTSIDE RECORDS SUMMARY | 2023-12-28 23:17 | XMS_ITS | Encounter Summary ---
Author Organization [facility] Address [address] [place] [address]. [place] [address] Care Team Providers Care Manager Practice Name Role Phone Annette Alvarez APRN STITCHING DEPARTMENT SUPERVISOR Unavailable Jocelyn Davidson RD Unavailable [phone] Tamar Murphy APRN STITCHING DEPARTMENT SUPERVISOR Unavailable Nikita Gamble MD Primary Care Provider Naveen Casiano MD Unavailable [phone] Harlan Lin MD Unavailable Milagro vailable Mikki Blevins MD Unavailable [phone] Mikki Blevins MD Unavailable [phone] Mindi Llanes PA-C Unavailable [phone] Reason for Visit * Reason Comments Medication Refill Encounter Details Date Type Department Care Team (Late st Contact Info) Description 06/05/[address] [facility] [address] [place] [address] Annette Alvarez APRN STITCHING DEPARTMENT SUPERVISOR [address] [place], [place] [phone] Medication Refill Social History Tobacco Use Types Packs/Day Years Used Date Smoking Tobacco: Never Smokeless Tobacco: Never Alcohol Use Standard Drinks/Week Comments Yes 0 (1 standard drink = 0.6 oz pur e alcohol) rare PHQ-2 Answer Date Recorded PHQ-2 Score 0 02/26/2020 Sex and Gender Information Value Date Recorded Sex Assigned at Female 03/04/2020 12:33 PM DIETITIAN TEACHER Gender Identity Female 03/04/2020 12:33 PM DIETITIAN TEACHER Sexual Orientation Straight 03/04/2020 12 :33 PM DIETITIAN TEACHER documented as of this encounter Miscellaneous Notes * Telephone Encounter - Jasmyn Lee RN - 06/05/2020 11:52 AM DIETITIAN TEACHER Prescription approved per [facility] Refill Protocol. Jasmyn Lee RN [facility] -- Triage Nurse ITIAN TEACHER documented in this encounter Plan of Treatment Not on file documented as of this encounter Visit Diagnoses Diagnosis Hypothyroidism due to acquired atrophy of thyroid documented in this encounter Additional Health Concerns Assessment Noted Time PHQ-9 Depression Total Score: 0 02/26/20 20 1:30 PM DIETITIAN TEACHER documented as of this encounter Care Teams Manager Practice Relationship Specialty Start Date End Date Nikita Gamble MD [address] [place] [phone] PCP - General Family Medicine 05/26/20 Annette Alvarez APRN STITCHING DEPARTMENT SUPERVISOR [address] [place] [address] Nurse Practitioner Clinical Nurse Specialist 03/22/17 10/21/[address] [facility] - [address] [place] [address] Event Representative Dietitian, Registered 05/25/18 Tamar Murphy APRN STITCHING DEPARTMENT SUPERVISOR [address] [place] [phone] Assigned PCP 02/08/20 11/15/20 [place] [address] [place] [address] Assigned PCP 11/16/20 12/18/23 Harlan Lin MD NO INFO AVAILABLE Assigned Endocrinology Provider 12/07/20 08/01/21 Mikki Blevins MD [address] [place] [address] Endocrinology, Diabetes, and Metabolism 05/07/21 [place] [address] Assigned Endocrinology Provider 08/02/21 01/28/23 Mindi Llanes PA-C [address] [place] [address] Assigned Surgical Provider 09/26/21 08/17/23 documented as of this encounter
--- OUTSIDE RECORDS SUMMARY | 2023-12-28 23:17 | XMS_ITS | Encounter Summary ---
Author Organization [place] Address [address] [place] [address]. [place] [address] Care Team Providers Care Insecticide Sprayer Name Role Phone Jocelyn Davidson RD Unavailable [phone] Nikita Gamble MD Primary Care Provider Naveen Casiano MD Unavailable [phone] Mikki Blevins MD Unavailable [phone] Mikki Blevins MD Unavailable [phone] Mindi Llanes PA-C Unavailable [phone] Encounter Details Date Type Department Care Team (Late st Contact Info) Description 02/05/2022 [facility] [place] [facility] [address] [place] [phone] Liberty Gilliam MA Social History Tobacco Use Types Packs/Day Years Used Date Smoking Tobacco: Never Smokeless Tobacco: Never Alcohol Use Standard Drinks/Week Comments Yes 0 (1 standard drink = 0.6 oz pur e alcohol) rare PHQ-2 Answer Date Recorded PHQ-2 Score 0 02/26/2020 Sex and Gender Information Value Date Recorded Sex Assigned at Female 03/04/2020 12:33 PM STEP DOWN NURSE Gender Identity Female 03/04/2020 12:33 PM STEP DOWN NURSE Sexual Orientation Straight 03/04/2020 12 :33 PM STEP DOWN NURSE documented as of this encounter Plan of Treatment Not on file documented as of this encounter Visit Diagnoses Not on filedocumented in this encounter Additional Health Concerns Assessment Noted Time PHQ-9 Depression Total Score: 0 02/26/20 20 1:30 PM STEP DOWN NURSE documented as of this encounter Care Teams Insecticide Sprayer Relationship Specialty Start Date End Date Nikita Gamble MD [place] [address] [place] [address] PCP - General Family Medicine 05/26/20 Jocelyn Davidson, RENATA [place] [address] [place] [address] Mind Reader Dietitian, Registered 05/25/18 [place] [address] [place] [address] Assigned PCP 11/16/20 12/18/23 Mikki Blevins MD [address] [place] [address] Endocrinology, Diabetes, and Metabolism 05/07/21 [place] [address] Assigned Endocrinology Provider 08/02/21 01/28/23 Mindi Llanes PA-C [address] [facility] [place] [address] [place] [address] Assigned Surgical Provider 09/26/21 08/17/23 documented as of this encounter
--- OUTSIDE RECORDS SUMMARY | 2023-12-28 23:17 | XMS_ITS | Clinical Summary ---
Author Organization [place] Address [address] [place] [address]. [place] [address] Care Team Providers Care Marine Reporter Name Role Phone Jocelyn Davidson RD Unavailable [phone] Nikita Gamble MD Primary Care Provider Mikki Blevins MD Unavailable [phone] Allergies No known active allergies Medications Medication Sig Dispensed Refills Start Date End Date Status Citalopram Hydrobromide (CELEXA PO) Take 40 mg by mouth daily Active Topiramate (TOPAMAX PO) Take 200 mg by mouth daily Active aspirin 81 MG tablet Take by mouth daily Activ e Pyridoxine HCl (VITAMIN B6 PO) Active Calcium Carb-Cholecalcifero l (CALCIUM + D3 PO) Activ e sennosides (SENOKOT) 8.6 MG tablet Take 2 tablets by mouth daily Active INSULIN PUMP - OUTPATIENTIndicatio ns:Type 1 [...] hours Using T:Connect: Yes Dexcom Sharing Code: [id number] 02/21/2019 Active blood glucose (ACCU-CHEK RADHA PLUS) [...] as needed for muscle spasms 40 tablet 09/26/2020 Active SUMAtriptan (IMITREX) 100 MG tabletIndications:M [...] NEEDED FOR LOW BLOOD SUGAR 2 kit 11/13/2021 Active amoxicillin (AMOXIL) 500 MG capsule TAKE 4 CAPSULES BY MOUTH ONCE FOR 1 DOSE 11/30/2021 Active amoxicillin (AMOXIL) 500 MG capsule Take 2,000 mg by mouth Active cefdinir (OMNICEF) 300 MG capsule 02/04/2022 Active phentermine (ADIPEX-P) 37.5 MG tabletIndications:C [...] B, Adult 04/16/2014,10/18/2013, 014 Influenza (High Dose) Trival ent,PF (Fluzone) 02/01/2017 Influenza Vaccine 18-64 (Flublok) 01/26/2018 Influenza [...] Sex Assigned at Female 03/04/2020 12:33 PM CANDLE MOLDER HAND Gender Identity Female 03/04/2020 12:33 PM CANDLE MOLDER HAND Sexual Orientation Straight 03/04/2020 12 :33 PM CANDLE MOLDER HAND Last Filed Vital Signs Vital Sign Reading Time Taken Comments Blood Pressure 128/68 11/06/2020 3:31 PM CDT Pulse 75 11/06/2020 3:31 PM CDT Temperature 37 ??C (98.6 ??F) 11/06/2020 3:31 PM CDT Respiratory Rate 19 02/26/2020 1:31 PM CANDLE MOLDER HAND Oxygen Saturation 96% 11/06/2020 3:31 PM CDT Inhaled Oxygen Concentration - - Weight 111.1 kg (245 lb) 02/09/2022 9:39 AM CANDLE MOLDER HAND last recorded Height 180.3 cm (5' 11) 02/09/2022 9:39 AM CANDLE MOLDER HAND pt reported Body Mass Index 34.17 02/09/2022 9:39 AM CANDLE MOLDER HAND Plan of Treatment Health Maintenance Due Date [...] FOOT EXAM 02/04/2018 02/04/2017 BMP 04/07/2021 01/05/2021, 12/11/2019, 08/16/2019, Additional history exists MICROALBUMIN 04/07/2021 01/05/2021, 11/2019, 04/16/2019, Additional history exists EYE EXAM 05/07/2021 05/07/2020, 05/27/2019 A1C 07/06/2021 01/05/2021, 09/2020, 03/05/2020, Additional history exists LIPID 01/05/2022 01/05/2021, 03/05/2020 TSH W/FREE T4 REFLEX 01/05/2022 01/05/2021, 01/05/2021, 03/05/2020, Additional history exists HPV TEST 06/09/2022 06/09/2017, 06/09/2017 PAP 06/09/2022 06/09/2017, 05/26, 06/09/2017, Additional history exists sDNA (Cologuard) 03/11/2023 03/11/2020 PHQ-2 (once per calendar year) 2023 02/26/2020, 02/26/2020 COVID-19 Vaccine ( season) 2023 06/12/2020, 05/22/2020 INFLUENZA VACCINE (#1) 2023 , 12/16/2020, 12/27/2019, Additional history exists DTAP/TDAP/TD IMMUNIZATION (4 - Td or Tdap) 01/11/2026 01/12/2016, 08/25/2006, 08/25/2006, Additional history exists COLONOSCOPY 06/02/2030 06/02/2020 [...] Procedure Name Priority Date/Time Associated Diagnosis Comments ALBUMIN RANDOM URINE QUANTITATIVE Routine 01/05/2021 3:04 PM CDT Type 1 diabetes mellitus with stage 3a chronic kidney disease (H) HEMOGLOBIN A1C Routine 01/05/2021 3:04 PM CDT Type 1 diabetes mellitus with stage 3a chronic kidney disease (H) TSH WITH FREE T4 REFLEX Routine 01/05/2021 3:03 PM CDT Type 1 diabetes mellitus with stage 3a chronic kidney disease (H) LIPID REFLEX TO DIRECT LDL PANEL Routine 01/05/2021 3:03 PM CDT Type 1 diabetes mellitus with stage 3a chronic kidney disease (H) BASIC METABOLIC PANEL Routine 01/05/2021 3:03 PM CDT Type 1 diabetes mellitus with stage 3a chronic kidney disease (H) EYE EXAM - HIM SCAN 05/07/2020 1 2:00 AM CANDLE MOLDER HAND RENAL PANEL Routine 08/16/2019 5:57 PM CDT Uncontrolled type 1 diabetes with renal manifestation (H) ABSTRACT PAP ([facility] EXTERNAL RESULT) Routine 06/09/2017 ABSTRACT HPV ([facility] EXTERNAL RESULT) Routine 06/09/2017 COMPREHENSIVE METABOLIC PANEL STAT 12/25/2014 10:48 PM CDT CBC WITH PLATELETS & DIFFERENTIAL STAT 12/25/2014 10:48 PM CDT UA MACROSCOPIC WITH REFLEX TO MICRO STAT 12/25/2014 10:05 PM CDT from Last 3 Months or Most Recently Relevant to Health Maintenance Results * Albumin Random Urine Quantitative with Creat Ratio (01/05/2021 3:04 PM CDT) Creatinine Urine mg/dL 36 mg/dL 01/06/2021 5:25 PM CDT [facility] Albumin Urine mg/L <5 mg/L 01/06/2021 5:25 PM CDT [facility] Albumin Urine mg/g Cr 01/06/2021 5:25 PM CDT [facility] Comment:Unable to calculate: ??Urine creatinine or albumin value below detectable level Urine URINE SPECIMEN / Unknown Non-blood Collection / Unknown 01/05/2021 3:04 PM CDT 01/05/2021 3:04 PM CDT Harlan Lin MD LAB - URINE ORDERABLES [facility] [address] Lab (no room number, 1st floor of clinic) [place] [address], [place] [phone] * (ABNORMAL) Hemoglobin A1c (01/05/2021 3:04 PM CDT) Hemoglobin A1C 7.4(H) 0.0 - 5.6 % 01/05/2021 3:47 PM CDT [facility] Comment: Normal <5.7% Prediabetes 5.7-6.4% ?? Diabetes 6.5% or higher Note: Adopted from ADA consensus guidelines. Blood BLOOD SPECIMEN / Unknown Venipuncture / Unknown 01/05/2021 3:04 PM CDT 01/05/2021 3:04 PM CDT Harlan Lin MD LAB - BLOOD ORDERABLES [facility] [id number] [place] [address] Lab (no room number, 1st floor of clinic) [place] [address], [place] [phone] * (ABNORMAL) TSH with free T4 reflex (01/05/2021 3:03 PM CDT) TSH 8.38(H) 0.40 - 4.00 mU/L 01/06/2021 9:21 AM CDT [facility] Blood BLOOD SPECIMEN / Unknown Venipuncture / Unknown 01/05/2021 3:03 PM CDT 01/05/2021 3:04 PM CDT Harlan Lin MD LAB - BLOOD ORDERABLES [facility] [address] Lab (no room number, 1st floor of clinic) [place] [address], [facility] [phone] * (ABNORMAL) Lipid panel reflex to direct LDL Fasting (01/05/2021 3:03 PM CDT) Cholesterol 203(H) <200 mg/dL 01/06/2021 9:14 AM CDT [facility] Triglycerides 251(H) <150 mg/dL 01/06/2021 9:14 AM CDT [facility] Direct Measure HDL 53 >=50 mg/dL 01/06/2021 9:14 AM CDT [facility] LDL Cholesterol Calculated 100 <=100 mg/dL 01/06/2021 9:14 AM CDT [facility] Non HDL Cholesterol 150(H) <130 mg/dL 01/06/2021 9:14 AM CDT [facility] Patient Fasting > 8hrs? Yes 01/06/2021 9:14 AM CDT [facility] Blood BLOOD SPECIMEN / Unknown Venipuncture / Unknown 01/05/2021 3:03 PM CDT 01/05/2021 3:04 PM CDT Narrative [facility] - 01/06/2021 9:14 AM CDT Cholesterol Desirable: ??<200 mg/dL Triglycerides Normal: ??Less than 150 mg/dL Borderline High: ??150-199 mg/dL High: ??200-499 mg/dL Very High: ??Greater than or equal to 500 mg/dL Direct Measure HDL Female: ??Greater than or equal to 50 mg/dL Male: ??Greater than or equal to 40 mg/dL LDL Cholesterol Desirable: ??<100mg/dL Above Desirable: ??100-129 mg/dL Borderline High: ??130-159 mg/dL High: ??160-189 mg/dL Very High: ??>= 190 mg/dL Non HDL Cholesterol Desirable: ??130 mg/dL Above Desirable: ??130-159 mg/dL Borderline High: ??160-189 mg/dL High: ??190-219 mg/dL Very High: ??Greater than or equal to 220 mg/dL Harlan Lin MD LAB - BLOOD ORDERABLES [facility] [address] Lab (no room number, 1st floor of clinic) [place] [address], [facility] [phone] * (ABNORMAL) BASIC METABOLIC PANEL (01/05/2021 3:03 PM CDT) Sodium 134 133 - 144 mmol/L 01/06/2021 9:08 AM CDT [facility] Potassium 3.9 3.4 - 5.3 mmol/L 01/06/2021 9:08 AM CDT [facility] Chloride 99 94 - 109 mmol/L 01/06/2021 9:08 AM CDT [facility] Carbon Dioxide (CO2) 28 20 - 32 mmol/L 01/06/2021 9:08 AM CDT [facility] Anion Gap 7 3 - 14 mmol/L 01/06/2021 9:08 AM CDT [facility] Urea Nitrogen 33(H) 7 - 30 mg/dL 01/06/2021 9:08 AM CDT [facility] Creatinine 1.93(H) 0.52 - 1.04 mg/dL 01/06/2021 9:08 AM CDT [facility] Calcium 9.5 8.5 - 10.1 mg/dL 01/06/2021 9:08 AM CDT [facility] Glucose 163(H) 70 - 99 mg/dL 01/06/2021 9:08 AM CDT [facility] GFR Estimate 29(L) >60 mL/min/1.7 3m2 01/06/2021 9:08 AM CDT [facility] Comment:As of October 05, 2020, eGFR is calculated by the CKD-EPI creatinine equation, without race adjustment. eGFR can be influenced by muscle mass, exercise, and diet. The reported eGFR is an estimation only and is only applicable if the renal function is stable. Blood BLOOD SPECIMEN / Unknown Venipuncture / Unknown 01/05/2021 3:03 PM CDT 01/05/2021 3:04 PM CDT Harlan Lin MD LAB - BLOOD ORDERABLES [facility] [address] Lab (no room number, 1st floor of clinic) [place] [address], [facility] [phone] * (ABNORMAL) EYE EXAM - HIM SCAN (05/07/2020 12:00 AM CANDLE MOLDER HAND) RETINOPATHY POSITIVE(A ) 05/07/2020 Reynaldo Suyapa Adams - 05/07/2020 12:00 AM CANDLE MOLDER HAND DIABETIC EYE EXAM [facility] EYE Provider Outside OTHER * (ABNORMAL) Renal panel (Alb, BUN, Ca, Cl, CO2, Creat, Gluc, Phos, K, Na) (08/16/2019 5:57 PM CDT) [facility] Sodium 136 133 - 144 mmol/L 08/16/2019 6:32 PM [facility] Potassium 4.6 3.4 - 5.3 mmol/L 08/16/2019 6:32 PM [facility] Chloride 107 94 - 109 mmol/L 08/16/2019 6:32 PM [facility] Carbon Dioxide 24 20 - 32 mmol/L 08/16/2019 6:[address] [facility] Anion Gap 5 3 - 14 mmol/L 08/16/2019 6:[address] [facility] Glucose 166(H) 70 - 99 mg/dL 08/16/2019 6:[address] [facility] Urea Nitrogen 21 7 - 30 mg/dL 08/16/2019 6:[address] [facility] Creatinine 1.41(H) 0.52 - 1.04 mg/dL 08/16/2019 6:[address] [facility] GFR Estimate 42(L) >60 mL/min/{1 .73_m2} 08/16/2019 6:[address] [facility] Comment: Non GFR Calc Starting 03/14/2018, serum creatinine based estimated GFR (eGFR) will be calculated using the Chronic Kidney Disease Epidemiology Collaboration (CKD-EPI) equation. GFR Estimate If Black 49(L) >60 mL/min/{1 .73_m2} 08/16/2019 6:39 PM CDT [facility] Comment: GFR Calc Starting 03/14/2018, serum creatinine based estimated GFR (eGFR) will be calculated using the Chronic Kidney Disease Epidemiology Collaboration (CKD-EPI) equation. Calcium 9.0 8.5 - 10.1 mg/dL 08/16/2019 6:39 PM CDT [facility] Phosphorus 3.4 2.5 - 4.5 mg/dL 08/16/2019 6:39 PM CDT [facility] Albumin 3.9 3.4 - 5.0 g/dL 08/16/2019 6:39 PM CDT [facility] Blood specimen (specimen) 08/16/2019 5:57 PM CDT 08/16/2019 5:58 PM CDT Annette Alvarez MANAGER ANDROID MOBILE LAB TECHNICIAN LAB - BLOOD O RDERABLES [facility] [address] [place] [address], [facility] [phone] [facility] [address] [place] [address], [facility] [phone] * ABSTRACT HPV-NO CHARGE (06/09/2017) HPV Abstract See Scanned Document [facility] 06/09/2017 Narrative [facility] - 06/09/2017 Krissy Staton MA ??Abstract Quality Initiatives 21 hours ago (1:44 PM) Please abstract the following data from this visit with this patient into the appropriate field in Epic: Tests that can be patient reported without a hard copy: Other Tests found in the patient's chart through Chart Review/Care Everywhere: Pap smear done by this group Jarrell this date: 06/09/17 Provider Outside LAB - HIM EXTERNAL R ESULT [facility] [address] * ABSTRACT PAP-NO CHARGE (06/09/2017) PAP-ABSTRACT See Scanned Document [facility] 06/09/2017 Narrative [facility] - 06/09/2017 Krissy Staton MA ??Abstract Quality Initiatives 21 hours ago (1:44 PM) Please abstract the following data from this visit with this patient into the appropriate field in Adku: Tests that can be patient reported without a hard copy: Other Tests found in the patient's chart through Chart Review/Care Everywhere: Pap smear done by this group Jarrell this date: 06/09/17 Provider Outside LAB - HIM EXTERNAL R ESULT [facility] [address] * (ABNORMAL) CBC with platelets + differential (12/25/2014 10:48 PM CDT) WBC 10.7 4.0 - 11.0 10e9/L [facility] RBC Count 3.98 3.8 - 5.2 10e12/L [facility] Hemoglobin 11.9 11.7 - 15.7 g/dL [facility] Hematocrit 34.5(L) 35.0 - 47.0 % [facility] MCV 87 78 - 100 fl [facility] MCH 29.9 26.5 - 33.0 pg [facility] MCHC 34.5 31.5 - 36.5 g/dL [facility] RDW 12.3 10.0 - 15.0 % [facility] Platelet Count 290 150 - 450 10e9/L [facility] Diff Method Automated Method [facility] % Neutrophils 71.9 % [facility] % Lymphocytes 19.2 % [facility] % Monocytes 5.6 % [facility] % Eosinophils 2.7 % [facility] % Basophils 0.5 % [facility] % Immature Granulocytes 0.1 % [facility] Absolute Neutrophil 7.7 1.6 - 8.3 10e9/L [facility] Absolute Lymphocytes 2.1 0.8 - 5.3 10e9/L [facility] Absolute Monocytes 0.6 0.0 - 1.3 10e9/L [facility] Absolute Eosinophils 0.3 0.0 - 0.7 10e9/L [facility] Absolute Basophils 0.1 0.0 - 0.2 10e9/L [facility] Abs Immature Granulocytes 0.0 0 - 0.4 10e9/L [facility] Blood specimen (specimen) 12/25/2014 10:48 PM CDT 12/25/2014 10:58 PM CDT Constance Wolff PA-C LAB - BLOO D ORDERABLES [facility] [address] [place] [address], [facility] [phone] * (ABNORMAL) Comprehensive metabolic panel (12/25/2014 10:48 PM CDT) Sodium 137 133 - 144 mmol/L [facility] Potassium 4.3 3.4 - 5.3 mmol/L [facility] Chloride 104 94 - 109 mmol/L [facility] Carbon Dioxide 29 20 - 32 mmol/L [facility] Anion Gap 4 3 - 14 mmol/L [facility] Glucose 77 70 - 99 mg/dL [facility] Urea Nitrogen 16 7 - 30 mg/dL [facility] Creatinine 1.27(H) 0.52 - 1.04 mg/dL [facility] GFR Estimate 45(L) >60 mL/min/1.7 m2 [facility] Comment:Non GFR Calc GFR Estimate If Black 54(L) >60 mL/min/1.7 m2 [facility] Comment: GFR Calc Calcium 8.2(L) 8.5 - 10.1 mg/dL [facility] Bilirubin Total 0.2 0.2 - 1.3 mg/dL [facility] Albumin 3.7 3.4 - 5.0 g/dL [facility] Protein Total 7.1 6.8 - 8.8 g/dL [facility] Alkaline Phosphatase 87 40 - 150 U/L [facility] ALT 24 0 - 50 U/L [facility] AST 16 0 - 45 U/L [facility] Blood specimen (specimen) 12/25/2014 10:48 PM CDT 12/25/2014 10:58 PM CDT Constance Wolff PA-C LAB - BLOO D ORDERABLES [facility] [address] [place] [address], [facility] [phone] * (ABNORMAL) *UA reflex to Microscopic (12/25/2014 10:05 PM CDT) Color Urine Yellow [facility] Appearance Urine Clear [facility] [place] Glucose Urine 100(A) NEG mg/dL [facility] Bilirubin Urine Negative NEG [facility] Ketones Urine Negative NEG mg/dL [facility] Specific Coila Urine 1.010 1.003 - 1.035 [facility] Blood Urine Negative NEG [facility] pH Urine 6.0 5.0 - 7.0 pH [facility] Protein Albumin Urine Negative NEG mg/dL [facility] Urobilinogen Urine 0.2 0.2 - 1.0 EU/dL [facility] Nitrite Urine Negative NEG [facility] Leukocyte Esterase Urine Negative NEG [facility] Source Midstream Urine [facility] 12/25/2014 10:0 5 PM CDT 12/25/2014 10:13 PM CDT Gem Ribeiro MD LAB - URINE ORDERAB LES [facility] [address] [address], [facility] [phone] from Last 3 Months or Most Recently Relevant to Health Maintenance Care Teams Marine Reporter Relationship Specialty Start Date End Date Nikita Gamble MD [place] [address] [place] [id number] PCP - General Family Medicine 05/26/20 Jocelyn Davidson, RENATA [place] [address] [place] [address] Extrusion Utility Worker Dietitian, Registered 05/25/18 Mikki Blevins MD [address] [place], [place] [id number] Endocrinology, Diabetes, and Metabolism 05/07/21
--- OUTSIDE RECORDS SUMMARY | 2023-12-28 23:17 | XMS_ITS | Encounter Summary ---
Author Organization [place] Address [address] [place] [address]. [place] [address] Care Team Providers Care Regulatory Associate Name Role Phone StuartJocelyn Bran YANEZ Unavailable [phone] Nikita Gamble MD Primary Care Provider Naveen Casiano MD Unavailable [phone] Mikki Blevins MD Unavailable [phone] Mikki Blevins MD Unavailable [phone] Mindi Llanes PA-C Unavailable [phone] Reason for Visit * Reason Comments Medication Refill Encounter Details Date Type Department Care Team (Late st Contact Info) Description 12/20/2021 Refill [facility] [address] [place] [phone] Mindi Llanes PA-C [address] [place] [id number] Medication Refill Social History Tobacco Use Types Packs/Day Years Used Date Smoking Tobacco: Never Smokeless Tobacco: Never Alcohol Use Standard Drinks/Week Comments Yes 0 (1 standard drink = 0.6 oz pur e alcohol) rare PHQ-2 Answer Date Recorded PHQ-2 Score 0 02/26/2020 Sex and Gender Information Value Date Recorded Sex Assigned at Female 03/04/2020 12:33 PM COMPUTER NUMERICAL CONTROL GRINDER Gender Identity Female 03/04/2020 12:33 PM COMPUTER NUMERICAL CONTROL GRINDER Sexual Orientation Straight 03/04/2020 12 :33 PM COMPUTER NUMERICAL CONTROL GRINDER documented as of this encounter Miscellaneous Notes * Telephone Encounter - Jammie Mohr RN - 12/24/2021 10:39 AM CDT 3rd and final attempt to call - left voicemail * Telephone Encounter - Jammie Mohr RN - 12/23/2021 11:27 AM CDT 2nd attempt - left voicemail. * Telephone Encounter - Jammie Morh RN - 12/22/2021 10:35 AM CDT Left [...] Total Score: 0 02/26/20 20 1:30 PM COMPUTER NUMERICAL CONTROL GRINDER documented as of this encounter Care Teams Regulatory Associate Relationship Specialty Start Date End Date Nikita Gamble [facility] [address] [place] [address] [place] [address] PCP - General Family Medicine 05/26/[address] [place] [address] Millwork Estimator Dietitian, Registered 05/25/18 [place] [address] [place] [address] Assigned PCP 11/16/20 12/18/23 Mikki Blevins MD [address] [place], [place] [address] Endocrinology, Diabetes, and Metabolism 05/07/21 [place] [address] Assigned Endocrinology Provider 08/02/21 01/28/23 Mindi Llanes PA-C [address] [place] [address] Assigned Surgical Provider 09/26/21 08/17/23 documented as of this encounter
--- OUTSIDE RECORDS SUMMARY | 2023-12-28 23:17 | XMS_ITS | Encounter Summary ---
Author Organization [facility] Address [address] [place] [address]. [place] [address] Care Team Providers Care Floor Manager Name Role Phone StuartJocelyn desouza Bran YANEZ Unavailable [phone] Nikita Gamble MD Primary Care Provider Naveen Casiano MD Unavailable [phone] Mikki Blevins MD Unavailable [phone] Mikki Blevins MD Unavailable [phone] Mindi Llanes PA-C Unavailable [phone] Encounter Details Date Type Department Care Team (Late st Contact Info) Description 08/05/2021 My[facility] Medical Advice [facility] Specialty [address] [address] Mikki [place]levins [place] [address] Social History Tobacco Use Types Packs/Day Years Used Date Smoking Tobacco: Never Smokeless Tobacco: Never Alcohol Use Standard Drinks/Week Comments Yes 0 (1 standard drink = 0.6 oz pur e alcohol) rare PHQ-2 Answer Date Recorded PHQ-2 Score 0 02/26/2020 Sex and Gender Information Value Date Recorded Sex Assigned at Female 03/04/2020 12:33 PM TILE SHADER Gender Identity Female 03/04/2020 12:33 PM TILE SHADER Sexual Orientation Straight 03/04/2020 12 :33 PM TILE SHADER documented as of this encounter Miscellaneous Notes * Telephone Encounter - Radha Fernandez RN - 08/06/2021 8:40 AM CDT documented in this encounter Plan of Treatment Not on file documented as of this encounter Visit Diagnoses Not on filedocumented in this encounter Additional Health Concerns Assessment Noted Time PHQ-9 Depression Total Score: 0 02/26/20 20 1:30 PM TILE SHADER documented as of this encounter Care Teams Floor Manager Relationship Specialty Start Date End Date Nikita Gamble MD [address] [place] [address] PCP - General Family Medicine 05/26/[address] [place] [place] [address] Hearing Stenographer Dietitian, Registered 05/25/18 [place] [address] [place] [address] Assigned PCP 11/16/20 12/18/23 Mikki Blevins MD [address] [place] [address] Endocrinology, Diabetes, and Metabolism 05/07/21 [place] [address] Assigned Endocrinology Provider 08/02/21 01/28/23 Mindi Llanes PA-C [address] [address] Assigned Surgical Provider 09/26/21 08/17/23 documented as of this encounter
--- OUTSIDE RECORDS SUMMARY | 2023-12-28 23:17 | XMS_ITS | Encounter Summary ---
Author Organization [facility] Address [address] [place] [address]. [place] [address] Care Team Providers Care Clinical Rn Name Role Phone Stuart Jocelyn Bran YANEZ Unavailable [phone] Nikita Gamble MD Primary Care Provider Naveen Casiano MD Unavailable [phone] Mikki Blevins MD Unavailable [phone] Mikki Blevins MD Unavailable [phone] Mindi Llanes PA-C Unavailable [phone] Encounter Details Date Type Department Care Team (Late st Contact Info) Description 02/11/2022 [facility] Medical Advice [facility] [address] [place] [address] Jammie Mohr, RN Social History Tobacco Use Types Packs/Day Years Used Date Smoking Tobacco: Never Smokeless Tobacco: Never Alcohol Use Standard Drinks/Week Comments Yes 0 (1 standard drink = 0.6 oz pur e alcohol) rare PHQ-2 Answer Date Recorded PHQ-2 Score 0 02/26/2020 Sex and Gender Information Value Date Recorded Sex Assigned at Female 03/04/2020 12:33 PM COUNTER INTELLIGENCE Gender Identity Female 03/04/2020 12:33 PM COUNTER INTELLIGENCE Sexual Orientation Straight 03/04/2020 12 :33 PM COUNTER INTELLIGENCE documented as of this encounter Plan of Treatment Not on file documented as of this encounter Visit Diagnoses Not on filedocumented in this encounter Additional Health Concerns Assessment Noted Time PHQ-9 Depression Total Score: 0 02/26/20 20 1:30 PM COUNTER INTELLIGENCE documented as of this encounter Care Teams Clinical Rn Relationship Specialty Start Date End Date Nikita Gamble MD [place] [address] [place] [address] PCP - General Family Medicine 05/26/[address] [place] [address] [place] [address] Baseball Inspector And Repairer Dietitian, Registered 05/25/18 [place] [address] [place] [address] Assigned PCP 11/16/20 12/18/23 Mikki Blevins MD [address] [place] [address] Endocrinology, Diabetes, and Metabolism 05/07/21 [place] [address] Assigned Endocrinology Provider 08/02/21 01/28/23 Mindi Llanes PA-C [address] [facility] [place] [address] [place] [address] Assigned Surgical Provider 09/26/21 08/17/23 documented as of this encounter
--- OUTSIDE RECORDS SUMMARY | 2023-12-28 23:17 | XMS_ITS | Encounter Summary ---
Author Organization [facility] Address [address] [place] [address]. [place] [address] Care Team Providers Care Junior Electrical Engineer Name Role Phone Jocelyn Davidson RENATA Unavailable [phone] Nikita Gamble MD Primary Care Provider Naveen Casiano MD Unavailable [phone] Harlan Lin MD Unavailable Milagro vailable Mikki Blevins MD Unavailable [phone] Mikki Blevins MD Unavailable [phone] Mindi Llanes PA-C Unavailable [phone] Reason for Visit * Reason Onset Date Comments Diabetes Education 12/05/2020 Encounter Details Date Type Department Care Team (Late st Contact Info) Description 12/05/2020 Telephone [facility] Endocrinology [address] [place] [address] Harlan Lin MD NO INFO AVAILABLE Diabetes Education Social History Tobacco Use Types Packs/Day Years Used Date Smoking Tobacco: Never Smokeless Tobacco: Never Alcohol Use Standard Drinks/Week Comments Yes 0 (1 standard drink = 0.6 oz pur e alcohol) rare PHQ-2 Answer Date Recorded PHQ-2 Score 0 02/26/2020 Sex and Gender Information Value Date Recorded Sex Assigned at Female 03/04/2020 12:33 PM GIMP BUTTONHOLE MACHINE OPERATOR Gender Identity Female 03/04/2020 12:33 PM GIMP BUTTONHOLE MACHINE OPERATOR Sexual Orientation Straight 03/04/2020 12 :33 PM GIMP BUTTONHOLE MACHINE OPERATOR COVID-19 Exposure Response Date Recorded [...] calls back to schedule please schedule with Jocleyn Davidson. Plan for 2nd outreach attempt within 1 week. Hernando Gray [facility] Scheduling documented in this encounter Plan of Treatment Not on file documented as of this encounter Visit Diagnoses Not on filedocumented in this encounter Additional Health Concerns Assessment Noted Time PHQ-9 Depression Total Score: 0 02/26/20 20 1:30 PM GIMP BUTTONHOLE MACHINE OPERATOR documented as of this encounter Care Teams Junior Electrical Engineer Relationship Specialty Start Date End Date Nikita Gamble MD [address] [place] [address] PCP - General Family Medicine 05/26/[address] [place] [address] Shorthand Teacher Dietitian, Registered 05/25/18 [place] [address] [place] [address] Assigned PCP 11/16/20 12/18/23 Harlan Lin MD NO INFO AVAILABLE Assigned Endocrinology Provider 12/07/20 08/01/21 Mikki Blevins MD [address] [place] [address] Endocrinology, Diabetes, and Metabolism 05/07/21 [place] [address] Assigned Endocrinology Provider 08/02/21 01/28/23 Mindi Llanes PA-C [address] [place] [address] Assigned Surgical Provider 09/26/21 08/17/23 documented as of this encounter
--- OUTSIDE RECORDS SUMMARY | 2023-12-28 23:17 | XMS_ITS | Encounter Summary ---
Author Organization [facility] Address [address] [place] [address]. [place] [address] Care Team Providers Care Charge Accounts Audit Clerk Name Role Phone StuartJocelyn desouza Bran YANEZ Unavailable [phone] Nikita Gamble MD Primary Care Provider [phone] Naveen Casiano MD Unavailable [phone] Mikki Blevins MD Unavailable [phone] Mikki Blevins MD Unavailable [phone] Mindi Llanes PA-C Unavailable [phone] Encounter Details Date Type Department Care Team (Late st Contact Info) Description 12/21/2021 [facility] Medical Advice [facility] [place] [address] [facility] [address] [place] [address] Mindi Llanes PA-C [address] [facility] [address] [place] [address] Social History Tobacco Use Types Packs/Day Years Used Date Smoking Tobacco: Never Smokeless Tobacco: Never Alcohol Use Standard Drinks/Week Comments Yes 0 (1 standard drink = 0.6 oz pur e alcohol) rare PHQ-2 Answer Date Recorded PHQ-2 Score 0 02/26/2020 Sex and Gender Information Value Date Recorded Sex Assigned at Female 03/04/2020 12:33 PM SHOWROOM CONSULTANT Gender Identity Female 03/04/2020 12:33 PM SHOWROOM CONSULTANT Sexual Orientation Straight 03/04/2020 12 :33 PM SHOWROOM CONSULTANT documented as of this encounter Plan of Treatment Not on file documented as of this encounter Visit Diagnoses Not on filedocumented in this encounter Additional Health Concerns Assessment Noted Time PHQ-9 Depression Total Score: 0 02/26/20 20 1:30 PM SHOWROOM CONSULTANT documented as of this encounter Care Teams Charge Accounts Audit Clerk Relationship Specialty Start Date End Date Nikita Gamble MD [address] [place] [address] PCP - General Family Medicine 05/26/[address] [place] [address] [place] [address] Field Nurse Case Manager Dietitian, Registered 05/25/18 [place] [address] [place] [address] Assigned PCP 11/16/20 12/18/23 Mikki Blevins MD [address] [place] [address] Endocrinology, Diabetes, and Metabolism 05/07/21 [place] [address] Assigned Endocrinology Provider 08/02/21 01/28/23 Mindi Llanes PA-C [address] [facility] [address] [place] [address] Assigned Surgical Provider 09/26/21 08/17/23 documented as of this encounter
--- OUTSIDE RECORDS SUMMARY | 2023-12-28 23:17 | XMS_ITS | Encounter Summary ---
Author Organization [facility] Address [address] [place] [address]. [place] [address] Care Team Providers Care Suit Maker Name Role Phone Antonio Annette Monroe APRN MACHINE SHORTHAND REPORTER Unavailable Goran Lloyd MD Primary Care Provider Jocelyn Davidson RD Unavailable [phone] Tamar Murphy APRN MACHINE SHORTHAND REPORTER Unavailable Nikita Gamble MD Primary Care Provider Naveen Casiano MD Unavailable [phone] Harlan Lin MD Unavailable Milagro vailable Mikki Blevins MD Unavailable [phone] Mikki Blevins MD Unavailable [phone] Mindi Llanes PA-C Unavailable [phone] Encounter Details Date Type Department Care Team (Late st Contact Info) Description 2020 [facility] [address] [address] Tamar Murphy APRN MACHINE SHORTHAND REPORTER [address] [place] [address] Social History Tobacco Use Types Packs/Day Years Used Date Smoking Tobacco: Never Smokeless Tobacco: Never Alcohol Use Standard Drinks/Week Comments Yes 0 (1 standard drink = 0.6 oz pur e alcohol) rare PHQ-2 Answer Date Recorded PHQ-2 Score 0 02/26/2020 Sex and Gender Information Value Date Recorded Sex Assigned at Female 03/04/2020 12:33 PM MILITARY COMMUNICATIONS SPECIALIST Gender Identity Female 03/04/2020 12:33 PM MILITARY COMMUNICATIONS SPECIALIST Sexual Orientation Straight 03/04/2020 12 :33 PM MILITARY COMMUNICATIONS SPECIALIST COVID-19 Exposure Response Date Recorded In the last month, have you been in contact with someone who was confirmed or suspected to have Coronavirus / COVID-19? No / Unsure 02/03/2020 12:21 PM MILITARY COMMUNICATIONS SPECIALIST documented as of this encounter Plan of Treatment Not on file documented as of this encounter Visit Diagnoses Not on filedocumented in this encounter Additional Health Concerns Assessment Noted Time PHQ-9 Depression Total Score: 0 02/26/20 20 1:30 PM MILITARY COMMUNICATIONS SPECIALIST documented as of this encounter Care Teams Suit Maker Relationship Specialty [place] [address] [place] [address] PCP - General Family Practice 12/29/17 05/21/20 Nikita Gamble MD [address] [place] [id number] PCP - General Family Medicine 05/26/20 Annette Alvarez APRN MACHINE SHORTHAND REPORTER [address] [place] [address] Nurse Practitioner Clinical Nurse Specialist 03/22/17 10/21/[address] [place] [address] Human Resources Designate Dietitian, Registered 05/25/18 Tamar Murphy APRN MACHINE SHORTHAND REPORTER [address] [place] [address] Assigned PCP 02/08/20 11/15/20 [place] [address] [place] [address] Assigned PCP 11/16/20 12/18/23 Harlan Lin MD NO INFO AVAILABLE Assigned Endocrinology Provider 12/07/20 08/01/21 Mikki Blevins MD [address] [place] [address] Endocrinology, Diabetes, and Metabolism 05/07/21 Mikki Blevins MD [place] [address] Assigned Endocrinology Provider 08/02/21 01/28/23 Mindi Llanes PA-C [address] [place] [address] Assigned Surgical Provider 09/26/21 08/17/23 documented as of this encounter
--- OUTSIDE RECORDS SUMMARY | 2023-12-28 23:17 | XMS_ITS | Encounter Summary ---
Author Organization [facility] Address [address] [place] [address]. [place] [address] Care Team Providers Care Consultant Luxury And Auto. Vice President [employer] (Ex ) Name Role Phone Annette Alvarez Mabel ALVAREZ FIELD CANE SCALE CLERK Unavailable Jocelyn Davidson RD Unavailable [phone] Tamar Murphy APRN FIELD CANE SCALE CLERK Unavailable Nikita Gamble MD Primary Care Provider Naveen Casiano MD Unavailable [phone] Harlan Lin MD Unavailable Milagro vailable Mikki Blevins MD Unavailable [phone] Mikki Blevins MD Unavailable [phone] Mindi LlanesC Unavailable [phone] Encounter Details Date Type Department Care Team (Late st Contact Info) Description 09/06/2020 [facility] Medical Advice [facility] [address] [facility] [address] [place] [address] Jocelyn Daivdson, RENATA [facility] MAGG[facility] [address] [address] Social History Tobacco Use Types Packs/Day Years Used Date Smoking Tobacco: Never Smokeless Tobacco: Never Alcohol Use Standard Drinks/Week Comments Yes 0 (1 standard drink = 0.6 oz pur e alcohol) rare PHQ-2 Answer Date Recorded PHQ-2 Score 0 02/26/2020 Sex and Gender Information Value Date Recorded Sex Assigned at Female 03/04/2020 12:33 PM COLLAR BASTER JUMPBASTING Gender Identity Female 03/04/2020 12:33 PM COLLAR BASTER JUMPBASTING Sexual Orientation Straight 03/04/2020 12 :33 PM COLLAR BASTER JUMPBASTING documented as of this encounter Miscellaneous Notes * Telephone Encounter - Naveen Casiano MD - 09/08/2020 12:23 PM CDT Care everywhere from [place] next visit Naveen Casiano MD * Telephone Encounter - Corina Escobar RD - 09/08/2020 11:07 AM CDT Forwarded [email or web address] message to Tamar Murphy, who I believe was the intended recipient. Corina Escobar RD, LD, CDE documented in this encounter Plan of Treatment Not on file documented as of this encounter Visit Diagnoses Not on filedocumented in this encounter Additional Health Concerns Assessment Noted Time PHQ-9 Depression Total Score: 0 02/26/20 20 1:30 PM COLLAR BASTER JUMPBASTING documented as of this encounter Care Teams Consultant Luxury And Auto. Vice President [employer] (Ex ) Relationship Specialty Start Date End Date Nikita Gamble MD [address] [place] [address] PCP - General Family Medicine 05/26/20 Annette Alvarez APRN FIELD CANE SCALE CLERK [address] [place] [address] Nurse Practitioner Clinical Nurse Specialist 03/22/17 10/21/[address] [place] [address] Chemistry Professor Dietitian, Registered 05/25/18 Tamar Murphy APRN FIELD CANE SCALE CLERK [address] [place] [id number] Assigned PCP 02/08/20 11/15/20 [place] [address] [place] [address] Assigned PCP 11/16/20 12/18/23 Harlan Lin MD NO INFO AVAILABLE Assigned Endocrinology Provider 12/07/20 08/01/21 Mikki Blevins MD [address] [place] [address] Endocrinology, Diabetes, and Metabolism 05/07/21 Mikki Blevins MD [place] [address] Assigned Endocrinology Provider 08/02/21 01/28/23 Mindi Llanes PA-C [address] [place] [address] Assigned Surgical Provider 09/26/21 08/17/23 documented as of this encounter
--- OUTSIDE RECORDS SUMMARY | 2023-12-28 23:17 | XMS_ITS | Encounter Summary ---
Author Organization [facility] Address [address] [place] [address]. [place] [address] Care Team Providers Care Licensed Massage Practitioner Name Role Phone Jocelyn Davidson RENATA Unavailable [phone] Nikita Gamble MD Primary Care Provider Naveen Casiano MD Unavailable [phone] Harlan Lin MD Unavailable Milagro vailable Mikki Blevins MD Unavailable [phone] Mikki Blevins MD Unavailable [phone] Mindi Llanes PA-C Unavailable [phone] Reason for Visit * Reason Onset Date Comments Diabetes Education 12/05/2020 Encounter Details Date Type Department Care Team (Late st Contact Info) Description 12/05/2020 [facility] Medical Advice [facility] Nurse Advisors [facility] [place] [address] Hernando Gray Diabetes Education Social History Tobacco Use Types Packs/Day Years Used Date Smoking Tobacco: Never Smokeless Tobacco: Never Alcohol Use Standard Drinks/Week Comments Yes 0 (1 standard drink = 0.6 oz pur e alcohol) rare PHQ-2 Answer Date Recorded PHQ-2 Score 0 02/26/2020 Sex and Gender Information Value Date Recorded Sex Assigned at Female 03/04/2020 12:33 PM NURSING EDUCATOR Gender Identity Female 03/04/2020 12:33 PM NURSING EDUCATOR Sexual Orientation Straight 03/04/2020 12 :33 PM NURSING EDUCATOR COVID-19 Exposure Response Date Recorded In the [...] back at a better time. Hernando Gray [facility] Scheduling documented in this encounter Plan of Treatment Not on file documented as of this encounter Visit Diagnoses Not on filedocumented in this encounter Additional Health Concerns Assessment Noted Time PHQ-9 Depression Total Score: 0 02/26/20 20 1:30 PM NURSING EDUCATOR documented as of this encounter Care Teams Licensed Massage Practitioner Relationship Specialty Start Date End Date Nikita Gamble MD [address] [place] [address] PCP - General Family Medicine 05/26/[address] [place] [address] Linen Room Houseperson Dietitian, Registered 05/25/18 [place] [address] [place] [address] Assigned PCP 11/16/20 12/18/23 Harlan Lin MD NO INFO AVAILABLE Assigned Endocrinology Provider 12/07/20 08/01/21 Mikki Blevins MD [address] [place] [address] Endocrinology, Diabetes, and Metabolism 05/07/21 Mikki Blevins MD [facility] [place] [address] Assigned Endocrinology Provider 08/02/21 01/28/23 Mindi Llanes PA-C [address] [place] [address] Assigned Surgical Provider 09/26/21 08/17/23 documented as of this encounter
--- OUTSIDE RECORDS SUMMARY | 2023-12-28 23:17 | XMS_ITS | Encounter Summary ---
Author Organization [facility] Address [address] [place] [address]. [place] [address] Care Team Providers Care Pie Topper Name Role Phone StuartJocelyn desouza Bran YANEZ Unavailable [phone] Nikita Gamble MD Primary Care Provider Naveen Casiano MD Unavailable [phone] Mikki Blevins MD Unavailable [phone] Mikki Blevins MD Unavailable [phone] Mindi Llanes PA-C Unavailable [phone] Reason for Visit * Reason Onset Date Comments Medication Question 09/14/2021 OZEMPIC Encounter Details Date Type Department Care Team (Late st Contact Info) Description 09/14/[address] [facility] Specialty [address] [place] [address] Mikki Blevins MD [place] [address] Medication Question (OZEMPIC) Social History Tobacco Use Types Packs/Day Years Used Date Smoking Tobacco: Never Smokeless Tobacco: Never Alcohol Use Standard Drinks/Week Comments Yes 0 (1 standard drink = 0.6 oz pur e alcohol) rare PHQ-2 Answer Date Recorded PHQ-2 Score 0 02/26/2020 Sex and Gender Information Value Date Recorded Sex Assigned at Female 03/04/2020 12:33 PM PAINT DEPARTMENT SUPERVISOR Gender Identity Female 03/04/2020 12:33 PM PAINT DEPARTMENT SUPERVISOR Sexual Orientation Straight 03/04/2020 12 :33 PM PAINT DEPARTMENT SUPERVISOR documented as of this encounter Miscellaneous Notes * Telephone Encounter - Liberty Rader - 09/14/2021 4:43 PM CDT [facility] Phone Message May a detailed message be left on voicemail: yes Reason for Call: Medication Question or concern regarding medication Prescription Clarification Name of Medication: OZEMPIC Prescribing Provider: [facility] Pharmacy: [id number] [place] [address] What on the order needs clarification? Pt [...] Depression Total Score: 0 02/26/20 1:30 PM PAINT DEPARTMENT SUPERVISOR documented as of this encounter Care Teams Pie Topper Relationship Specialty Start Date End Date Nikita Gamble MD [place] [address] [place] [address] PCP - General Family Medicine 05/26/[address] [facility] [place] [address] Jacquard Lace Weaver Dietitian, Registered 05/25/18 [place] [address] [place] [address] Assigned PCP 11/16/20 12/18/23 Mikki Blevins MD [address] [place] [address] Endocrinology, Diabetes, and Metabolism 05/07/21 [place] [address] Assigned Endocrinology Provider 08/02/21 01/28/23 Mindi Llanes PA-C [address] [place] [address] Assigned Surgical Provider 09/26/21 08/17/23 documented as of this encounter
--- OUTSIDE RECORDS SUMMARY | 2023-12-28 23:17 | XMS_ITS | Encounter Summary ---
Author Organization [facility] Address [address] [place] [address]. [place] [address] Care Team Providers Care Malt Roaster Name Role Phone StuartJocelyn desouza Bran YANEZ Unavailable [phone] Nikita Gamble MD Primary Care Provider Naveen Casiano MD Unavailable [phone] Mikki Blevins MD Unavailable [phone] Mikki Blevins MD Unavailable [phone] Mindi Llanes PA-C Unavailable [phone] Encounter Details Date Type Department Care Team (Late st Contact Info) Description 09/16/2021 MyC Medical Advice [facility] [address] [address] Mikki Blevins MD [facility] [address] Social History Tobacco Use Types Packs/Day Years Used Date Smoking Tobacco: Never Smokeless Tobacco: Never Alcohol Use Standard Drinks/Week Comments Yes 0 (1 standard drink = 0.6 oz pur e alcohol) rare PHQ-2 Answer Date Recorded PHQ-2 Score 0 02/26/2020 Sex and Gender Information Value Date Recorded Sex Assigned at Female 03/04/2020 12:33 PM METAL BONDING PRESS OPERATOR Gender Identity Female 03/04/2020 12:33 PM METAL BONDING PRESS OPERATOR Sexual Orientation Straight 03/04/2020 12 :33 PM METAL BONDING PRESS OPERATOR documented as of this encounter Plan of Treatment Not on file documented as of this encounter Visit Diagnoses Not on filedocumented in this encounter Additional Health Concerns Assessment Noted Time PHQ-9 Depression Total Score: 0 02/26/20 20 1:30 PM METAL BONDING PRESS OPERATOR documented as of this encounter Care Teams Malt Roaster Relationship Specialty Start Date End Date Nikita Gamble MD [address] [place] [address] PCP - General Family Medicine 05/26/[address] [place] [address] [place] [address] Casting Associate Dietitian, Registered 05/25/18 [place] [address] [place] [address] Assigned PCP 11/16/20 12/18/23 Mikki Blevins MD [address] [place] [address] Endocrinology, Diabetes, and Metabolism 05/07/21 [place] [address] Assigned Endocrinology Provider 08/02/21 01/28/23 Mindi Llanes PA-C [address] [facility] [place] [address] [place] [address] Assigned Surgical Provider 09/26/21 08/17/23 documented as of this encounter
--- OUTSIDE RECORDS SUMMARY | 2023-12-28 23:17 | XMS_ITS | Encounter Summary ---
Author Organization [place] Address [address] [place] [address]. [place] [address] Care Team Providers Care Two Way Radio Installer Name Role Phone Jocelyn Davidson RD Unavailable [phone] Nikita Gamble MD Primary Care Provider Naveen Casiano MD Unavailable [phone] Mikki Blevins MD Unavailable [phone] Mikki Blevins MD Unavailable [phone] Mindi Llanes PA-C Unavailable [phone] Encounter Details Date Type Department Care Team (Late st Contact Info) Description 09/18/2021 MyC Medical Advice [facility] [address] [place] [address] Liberty Gilliam MA Social History Tobacco Use Types Packs/Day Years Used Date Smoking Tobacco: Never Smokeless Tobacco: Never Alcohol Use Standard Drinks/Week Comments Yes 0 (1 standard drink = 0.6 oz pur e alcohol) rare PHQ-2 Answer Date Recorded PHQ-2 Score 0 02/26/2020 Sex and Gender Information Value Date Recorded Sex Assigned at Female 03/04/2020 12:33 PM WELLNESS AMBASSADOR Gender Identity Female 03/04/2020 12:33 PM WELLNESS AMBASSADOR Sexual Orientation Straight 03/04/2020 12 :33 PM WELLNESS AMBASSADOR documented as of this encounter Plan of Treatment Not on file documented as of this encounter Visit Diagnoses Not on filedocumented in this encounter Additional Health Concerns Assessment Noted Time PHQ-9 Depression Total Score: 0 02/26/20 20 1:30 PM WELLNESS AMBASSADOR documented as of this encounter Care Teams Two Way Radio Installer Relationship Specialty Start Date End Date Nikita Gamble MD [place] [address] [place] [address] PCP - General Family Medicine 05/26/20 Jocelyn Davidson, RENATA [place] [address] [place] [address] Fine Grade Bulldozer Operator Dietitian, Registered 05/25/18 [place] [address] [place] [address] Assigned PCP 11/16/20 12/18/23 Mikki Blevins MD [address] [place] [address] Endocrinology, Diabetes, and Metabolism 05/07/21 [place] [address] Assigned Endocrinology Provider 08/02/21 01/28/23 Mindi Llanes PA-C [address] [facility] [address] [place] [address] Assigned Surgical Provider 09/26/21 08/17/23 documented as of this encounter
--- OUTSIDE RECORDS SUMMARY | 2023-12-28 23:17 | XMS_ITS | Referral Summary ---
Author Organization [facility] Address [address] [place] [address]. [place] [address] Care Team Providers Care Medical Staff Coordinator Name Role Phone Jocelyn Davidson RD Unavailable [phone] Nikita Gamble MD Primary Care Provider Mikki Blevins MD Unavailable [phone] Allergies No known active allergies Medications [...] hours Using T:Connect: Yes Dexcom Sharing Code: [id number] 02/21/2019 Active blood glucose (ACCU-CHEK RADHA PLUS) [...] Sex Assigned at Female 03/04/2020 12:33 PM ADMISSIONS CLINICIAN Gender Identity Female 03/04/2020 12:33 PM ADMISSIONS CLINICIAN Sexual Orientation Straight 03/04/2020 12 :33 PM ADMISSIONS CLINICIAN Last Filed Vital Signs Vital Sign Reading Time Taken Comments Blood Pressure 128/68 11/06/2020 3:31 PM CDT Pulse 75 11/06/2020 3:31 PM CDT Temperature 37 ??C (98.6 ??F) 11/06/2020 3:31 PM CDT Respiratory Rate 19 02/26/2020 1:31 PM ADMISSIONS CLINICIAN Oxygen Saturation 96% 11/06/2020 3:31 PM CDT Inhaled Oxygen Concentration - - Weight 111.1 kg (245 lb) 02/09/2022 9:39 AM ADMISSIONS CLINICIAN last recorded Height 180.3 cm (5' 11) 02/09/2022 9:39 AM ADMISSIONS CLINICIAN pt reported Body Mass Index 34.17 02/09/2022 9:39 AM ADMISSIONS CLINICIAN Plan of Treatment Not on file Procedures Procedure Name Priority Date/Time Associated Diagnosis [...] - HIM SCAN 05/07/2020 1 2:00 AM ADMISSIONS CLINICIAN RENAL PANEL Routine 08/16/2019 5:57 PM CDT Uncontrolled type 1 diabetes with renal manifestation (H) ABSTRACT PAP ([facility] EXTERNAL RESULT) Routine 06/09/2017 ABSTRACT HPV ([facility] EXTERNAL RESULT) Routine 06/09/2017 COMPREHENSIVE METABOLIC [...] MD LAB - URINE ORDERABLES [facility] [address] Lab (no room number, 1st floor of clinic) [place] [address], [facility] [phone] * (ABNORMAL) Hemoglobin A1c (01/05/2021 3:04 PM CDT) Hemoglobin A1C 7.4(H) 0.0 - 5.6 % 01/05/2021 3:47 PM CDT CR LAB[facility]ATORY Comment: Normal <5.7% Prediabetes 5.7-6.4% ?? Diabetes 6.5% or higher Note: Adopted from ADA consensus guidelines. Blood BLOOD SPECIMEN / Unknown Venipuncture / Unknown 01/05/2021 3:04 PM CDT 01/05/2021 3:04 PM CDT Harlan Lin MD LAB - BLOOD ORDERABLES CR [facility] [address] [facility] Lab (no room number, 1st floor of clinic) [place] [address], [place] [phone] * (ABNORMAL) TSH with free T4 reflex (01/05/2021 3:03 PM CDT) Pathologist [facility] TSH 8.38(H) 0.40 - 4.00 mU/L 01/06/2021 9:21 AM CDT [facility] Blood BLOOD SPECIMEN / Unknown Venipuncture / Unknown 01/05/2021 3:03 PM CDT 01/05/2021 3:04 PM CDT Harlan Lin MD LAB - BLOOD ORDERABLES [facility] [address] Lab (no room number, 1st floor of clinic) [place] [address], [place] [phone] * (ABNORMAL) Lipid panel reflex to direct [...] MD LAB - BLOOD ORDERABLES [facility] [address] Lab (no room number, 1st floor of clinic) [place] [address], [facility] [phone] * (ABNORMAL) BASIC METABOLIC PANEL (01/05/2021 3:03 [...] Harlan Lin MD LAB - BLOOD ORDERABLES [facility] [address] Lab (no room number, 1st floor of clinic) [place] [address], [facility] [phone] * (ABNORMAL) EYE EXAM - HIM SCAN (05/07/2020 12:00 AM ADMISSIONS CLINICIAN) RETINOPATHY POSITIVE(A ) 05/07/2020 Narrative Suyapa Adams - 05/07/2020 12:00 AM ADMISSIONS CLINICIAN DIABETIC EYE EXAM [facility] Provider Outside OTHER * (ABNORMAL) Renal panel (Alb, BUN, Ca, Cl, CO2, Creat, Gluc, Phos, K, Na) (08/16/2019 5:57 PM CDT) Sodium 136 133 - 144 mmol/L 08/16/2019 6:32 PM T [facility] Potassium 4.6 3.4 - 5.3 mmol/L 08/16/2019 6:32 PM T [facility] Chloride 107 94 - 109 mmol/L 08/16/2019 6:32 PM [facility] Carbon Dioxide 24 20 - 32 mmol/L 08/16/2019 6:39 PM [facility] Anion Gap 5 3 - 14 mmol/L 08/16/2019 6:39 PM [facility] Glucose 166(H) 70 - 99 mg/dL 08/16/2019 6:39 PM [facility] Urea Nitrogen 21 7 - 30 mg/dL 08/16/2019 6:39 PM [facility] Creatinine 1.41(H) 0.52 - 1.04 mg/dL 08/16/2019 6:39 PM [facility] GFR Estimate 42(L) >60 mL/min/{1 .73_m2} 08/16/2019 6:39 PM [facility] Comment: Non GFR Calc Starting 03/14/2018, serum creatinine based estimated GFR (eGFR) will be calculated using the Chronic Kidney Disease Epidemiology Collaboration (CKD-EPI) equation. GFR Estimate If Black 49(L) >60 mL/min/{1 .73_m2} 08/16/2019 6:39 PM [facility] Comment: GFR Calc Starting 03/14/2018, serum creatinine based estimated GFR (eGFR) will be calculated using the Chronic Kidney Disease Epidemiology Collaboration (CKD-EPI) equation. Calcium 9.0 8.5 - 10.1 mg/dL 08/16/2019 6:39 PM [facility] Phosphorus 3.4 2.5 - 4.5 mg/dL 08/16/2019 6:39 PM CDT [facility] Albumin 3.9 3.4 - 5.0 g/dL 08/16/2019 6:39 PM CDT [facility] Blood specimen (specimen) 08/16/2019 5:57 PM CDT 08/16/2019 5:58 PM CDT Annette Alvarez AUTO BODY REPAIR TECHNICIAN SEM MANAGER LAB - BLOOD O RDERABLES [facility] [address] [place] [address], [facility] [phone] [facility] [address] [place] [address], [facility] [phone] * ABSTRACT HPV-NO CHARGE (06/09/2017) HPV Abstract See Scanned Document [facility] 06/09/2017 Narrative [facility] - 06/09/2017 Krissy Staton MA ??Abstract Quality Initiatives 21 hours ago (1:44 PM) Please abstract the following data from this visit with this patient into the appropriate field in Teal Or[employer]: Tests that can be patient reported without a hard copy: Other Tests found in the patient's chart through Chart Review/Care Everywhere: Pap smear done by this group Jarrell this date: 06/09/17 Provider Outside LAB - HIM EXTERNAL R ESULT [facility] [address] [place] [address], [facility] * ABSTRACT PAP-NO CHARGE (06/09/2017) PAP-ABSTRACT See Scanned Document [facility] 06/09/2017 Narrative [facility] - 06/09/2017 Krissy Staton MA ??Abstract Quality Initiatives 21 hours ago (1:44 PM) Please abstract the following data from this visit with this patient into the appropriate field in Teal Or[employer]: Tests that can be patient reported without a hard copy: Other Tests found in the patient's chart through Chart Review/Care Everywhere: Pap smear done by this group Reneasurinder this date: 06/09/17 Provider Outside LAB - [facility] EXTERNAL R ESULT [facility] [address] * (ABNORMAL) CBC with platelets + differential (12/25/2014 10:48 PM CDT) WBC 10.7 4.0 - 11.0 10e9/L [facility] RBC Count 3.98 3.8 - 5.2 10e12/L [facility] Hemoglobin 11.9 11.7 - 15.7 g/dL [facility] Hematocrit 34.5(L) 35.0 - 47.0 % [facility] MCV 87 78 - 100 fl [facility] MCH 29.9 26.5 - 33.0 pg [facility] MCHC 34.5 31.5 - 36.5 g/dL [facility] RDW 12.3 10.0 - 15.0 % [facility] Platelet Count 290 150 - 450 10e9/L [facility] Diff Method Automated Method [facility] % Neutrophils 71.9 % [facility] % Lymphocytes 19.2 % [facility] % Monocytes 5.6 % [facility] % Eosinophils 2.7 % [facility] % Basophils 0.5 % [facility] % Immature Granulocytes 0.1 % [facility] Absolute Neutrophil 7.7 1.6 - 8.3 10e9/L [facility] Absolute Lymphocytes 2.1 0.8 - 5.3 10e9/L [facility] Absolute Monocytes 0.6 0.0 - 1.3 10e9/L [facility] Absolute Eosinophils 0.3 0.0 - 0.7 10e9/L [facility] Absolute Basophils 0.1 0.0 - 0.2 10e9/L [facility] Abs Immature Granulocytes 0.0 0 - 0.4 10e9/L [facility] Blood specimen (specimen) 12/25/2014 10:48 PM CDT 12/25/2014 10:58 PM CDT Constance Wolff PA-C LAB - BLOO D ORDERABLES [facility] [address] [place] [address], [facility] [phone] * (ABNORMAL) Comprehensive metabolic panel (12/25/2014 10:48 PM CDT) Sodium 137 133 - 144 mmol/L [facility] Potassium 4.3 3.4 - 5.3 mmol/L [facility] Chloride 104 94 - 109 mmol/L [facility] Carbon Dioxide 29 20 - 32 mmol/L [facility] Anion Gap 4 3 - 14 mmol/L [facility] Glucose 77 70 - 99 mg/dL [facility] Urea Nitrogen 16 7 - 30 mg/dL [facility] Creatinine 1.27(H) 0.52 - 1.04 mg/dL [facility] GFR Estimate 45(L) >60 mL/min/1.7 m2 [facility] Comment:Non GFR Calc GFR Estimate If Black 54(L) >60 mL/min/1.7 m2 [facility] Comment: GFR Calc Calcium 8.2(L) 8.5 - 10.1 mg/dL [facility] Bilirubin Total 0.2 0.2 - 1.3 mg/dL [facility] Albumin 3.7 3.4 - 5.0 g/dL [facility] Protein Total 7.1 6.8 - 8.8 g/dL [facility] Alkaline Phosphatase 87 40 - 150 U/L [facility] ALT 24 0 - 50 U/L [facility] AST 16 0 - 45 U/L [facility] Blood specimen (specimen) 12/25/2014 10:48 PM CDT 12/25/2014 10:58 PM CDT Constance Wolff PA-C LAB - BLOO D ORDERABLES Performing Organization Address City/[facility]/ZIP Co de Phone Number [facility] [address] [address], [facility] [phone] * (ABNORMAL) *UA reflex to Microscopic (12/25/2014 10:05 PM CDT) Color Urine Yellow [facility] Appearance Urine Clear [facility] Glucose Urine 100(A) NEG mg/dL [facility] Bilirubin Urine Negative NEG [facility] Ketones Urine Negative NEG mg/dL [facility] Specific Elliott Urine 1.010 1.003 - 1.035 [facility] Blood Urine Negative NEG [facility] pH Urine 6.0 5.0 - 7.0 pH [facility] Protein Albumin Urine Negative NEG mg/dL [facility] Urobilinogen Urine 0.2 0.2 - 1.0 EU/dL [facility] Nitrite Urine Negative NEG [facility] Leukocyte Esterase Urine Negative NEG [facility] Source Midstream Urine [facility] 12/25/2014 10:0 5 PM CDT 12/25/2014 10:13 PM CDT Gem Ribeiro MD LAB - URINE ORDERAB LES Performing Organization Address City/[facility] Co de Phone Number [facility] [address] [address], [facility] [phone] from Last 3 Months or Most Recently Relevant to Health Maintenance Care Teams Medical Staff Coordinator Relationship Specialty Start Date End Date Nikita Gamble MD [facility] [address] [place] [address] PCP - General Family Medicine 05/26/20 Jocelyn Davidson, RD [facility] [address] [place] [address] Circulator Dietitian, Registered 05/25/18 Mikki Blevins MD [address] [place] [address] Endocrinology, Diabetes, and Metabolism 05/07/21
--- OUTSIDE RECORDS SUMMARY | 2023-12-28 23:17 | XMS_ITS | Encounter Summary ---
Author Organization [facility] Address [address] [place] [address]. [place] [address] Care Team Providers Care Netezza Architect Name Role Phone Stuart Jocelyn Bran YANEZ Unavailable [phone] Nikita Gamble MD Primary Care Provider [phone] Naveen Casiano MD Unavailable [phone] Mikki Blevins MD Unavailable [phone] Mikki Blevins MD Unavailable [phone] Mindi Llanes PA-C Unavailable [phone] Encounter Details Date Type Department Care Team [...] Sex Assigned at Female 03/04/2020 12:33 PM TRAY ROOM WORKER Gender Identity Female 03/04/2020 12:33 PM TRAY ROOM WORKER Sexual Orientation Straight 03/04/2020 12 :33 PM TRAY ROOM WORKER documented as of this encounter Plan of Treatment Not on file documented as of this encounter Visit Diagnoses Not on filedocumented in this encounter Additional Health Concerns Assessment Noted Time PHQ-9 Depression Total Score: 0 02/26/20 20 1:30 PM TRAY ROOM WORKER documented as of this encounter Care Teams Netezza Architect Relationship Specialty Start Date End Date Nikita Gamble MD [address] [place] [address] PCP - General Family Medicine 05/26/20 Jocelyn Davidson, RENATA [address] [place] [address] Wool Spotter Dietitian, Registered 05/25/18 [place] [address] [place] [address] Assigned PCP 11/16/20 12/18/23 Mikki Blevins MD [address] [place] [address] Endocrinology, Diabetes, and Metabolism 05/07/21 [place] [address] Assigned Endocrinology Provider 08/02/21 01/28/23 Mindi Llanes PA-C [address] [facility] [address] [place] [address] [place] [address] Assigned Surgical Provider 09/26/21 08/17/23 documented as of this encounter
--- OUTSIDE RECORDS SUMMARY | 2023-12-28 23:18 | XMS_ITS | Encounter Summary ---
Author Organization [facility] Address [address] [place] [address]. [place] [address] Care Team Providers Care Wwe Wrestler Name Role Phone Antonio Annette Monroe APRN PIE FILLER Unavailable Goran Lloyd MD Primary Care Provider Jocelyn Davidson RD Unavailable [phone] Tamar Murphy APRN PIE FILLER Unavailable Nikita Gamble MD Primary Care Provider Naveen Casiano MD Unavailable [phone] Harlan Lin MD Unavailable Milagro vailable Mikki Blevins MD Unavailable [phone] Mikki Blevins MD Unavailable [phone] Mindi Llanes PA-C Unavailable [phone] Encounter Details Date Type Department Care Team (Late st Contact Info) Description 06/29/2018 [facility] Medical Advice [address] [address] Mimi Cyr CMA Social History Tobacco Use Types Packs/Day Years Used Date Smoking Tobacco: Never Smokeless Tobacco: Never Alcohol Use Standard Drinks/Week Comments Yes 0 (1 standard drink = 0.6 oz pur e alcohol) rare Sex and Gender Information Value Date Recorded Sex Assigned at Female 03/04/2020 12:33 PM SUBPOENA SERVER Gender Identity Female 03/04/2020 12:33 PM SUBPOENA SERVER Sexual Orientation Straight 03/04/2020 12 :33 PM SUBPOENA SERVER documented as of this encounter Plan of Treatment Not on file documented as of this encounter Visit Diagnoses Not on filedocumented in this encounter Additional Health Concerns Infection Onset Date Last Indicated Resolved Time Rule Out COVID-19 02/26/2020 02/26/2020 02/27/2020 4:32 PM SUBPOENA SERVER documented as of this encounter Care Teams Wwe Wrestler Relationship Specialty [place] [address] [place] [address] PCP - General Family Practice 12/29/17 05/21/20 Nikita Gamble MD [address] [place] [id number] PCP - General Family Medicine 05/26/20 Annette Alvarez APRN PIE FILLER [address] [place], [place] [id number] Nurse Practitioner Clinical Nurse Specialist 03/22/17 10/21/[address] [place] [id number] Driver Education Road Instructor Dietitian, Registered 05/25/18 Tamar Murphy APRN PIE FILLER [address] [place] [phone] Assigned PCP 02/08/20 11/15/20 [place] [address] [place], [place] [id number] Assigned PCP 11/16/20 12/18/23 Harlan Lin MD NO INFO AVAILABLE Assigned Endocrinology Provider 12/07/20 08/01/21 Mikki Blevins MD [address] [place] [address] Endocrinology, Diabetes, and Metabolism 05/07/21 [place] [address] Assigned Endocrinology Provider 08/02/21 01/28/23 Mindi Llanes PA-C [address] [place] [address] Assigned Surgical Provider 09/26/21 08/17/23 documented as of this encounter
--- OUTSIDE RECORDS SUMMARY | 2023-12-28 23:18 | XMS_ITS | Encounter Summary ---
Author Organization [facility] Address [address] [place] [address]. [place] [address] Care Team Providers Care Safety Deposit Boxes Custodian Name Role Phone Antonio Annette Monroe APRN IRON GUARDRAIL INSTALLER Unavailable Goran Lloyd MD Primary Care Provider Jocelyn Davidson RD Unavailable [phone] Tamar Murphy APRN IRON GUARDRAIL INSTALLER Unavailable Nikita Gamble MD Primary Care Provider Naveen Casiano MD Unavailable [phone] Harlan Lin MD Unavailable Milagro vailable Mikki Blevins MD Unavailable [phone] Mikki Blevins MD Unavailable [phone] Mindi Llanes PA-C Unavailable [phone] Encounter Details Date Type Department Care Team (Late st Contact Info) Description 07/05/2018 [facility] Medical Advice [facility] [address] [facility] [address] [place] [address] Jocelyn Davidson, RD [address] [place] [address] Social History Tobacco Use Types Packs/Day Years Used Date Smoking Tobacco: Never Smokeless Tobacco: Never Alcohol Use Standard Drinks/Week Comments Yes 0 (1 standard drink = 0.6 oz pur e alcohol) rare Sex and Gender Information Value Date Recorded Sex Assigned at Female 03/04/2020 12:33 PM KITCHENWHERE MAKER Gender Identity Female 03/04/2020 12:33 PM KITCHENWHERE MAKER Sexual Orientation Straight 03/04/2020 12 :33 PM KITCHENWHERE MAKER documented as of this encounter Plan of Treatment Not on file documented as of this encounter Visit Diagnoses Not on filedocumented in this encounter Additional Health Concerns Infection Onset Date Last Indicated Resolved Time Rule Out COVID-19 02/26/2020 02/26/2020 02/27/2020 4:32 PM KITCHENWHERE MAKER documented as of this encounter Care Teams Safety Deposit Boxes Custodian Relationship Specialty [place] [address] [place] [address] PCP - General Family Practice 12/29/17 05/21/20 Nikita Gamble MD [address] [place] [phone] PCP - General Family Medicine 05/26/20 Annette Alvarez APRN IRON GUARDRAIL INSTALLER [address] [place] [address] Nurse Practitioner Clinical Nurse Specialist 03/22/17 10/21/[address] [place] [address] Tiedown Operator Dietitian, Registered 05/25/18 Tamar Murphy APRN IRON GUARDRAIL INSTALLER [address] [place] [phone] Assigned PCP 02/08/20 11/15/20 [place] [address] [place] [address] Assigned PCP 11/16/20 12/18/23 Harlan Lin MD NO INFO AVAILABLE Assigned Endocrinology Provider 12/07/20 08/01/21 Mikki Blevins MD [address] [place] [address] Endocrinology, Diabetes, and Metabolism 05/07/21 Mikki Blevins MD [facility] [place] [address] Assigned Endocrinology Provider 08/02/21 01/28/23 Mindi Llanes PA-C [address] [place] [address] Assigned Surgical Provider 09/26/21 08/17/23 documented as of this encounter
--- OUTSIDE RECORDS SUMMARY | 2023-12-28 23:18 | XMS_ITS | Encounter Summary ---
Author Organization [facility] Address [address] [place] [address]. [place] [address] Care Team Providers Care Cnc Set Up Operator Name Role Phone Annette Alvarez Mabel ALVAREZ SPOTTER Unavailable Goran Lloyd MD Primary Care Provider Jocelyn Davidson RD Unavailable [phone] Tamar Murphy APRN SPOTTER Unavailable Nikita Gamble MD Primary Care Provider Naveen Casiano MD Unavailable [phone] Harlan Lin MD Unavailable Milagro vailable Mikki Blevins MD Unavailable [phone] Mikki Blevins MD Unavailable [phone] Mindi Llanes PA-C Unavailable [phone] Encounter Details Date Type Department Care Team (Late st Contact Info) Description 09/01/2018 [facility] [address] [address] Jocelyn Davidson, RENATA [address] [place] [address] Social History Tobacco Use Types Packs/Day Years Used Date Smoking Tobacco: Never Smokeless Tobacco: Never Alcohol Use Standard Drinks/Week Comments Yes 0 (1 standard drink = 0.6 oz pur e alcohol) rare Sex and Gender Information Value Date Recorded Sex Assigned at Female 03/04/2020 12:33 PM INTERACTIVE MEDIA SPECIALIST Gender Identity Female 03/04/2020 12:33 PM INTERACTIVE MEDIA SPECIALIST Sexual Orientation Straight 03/04/2020 12 :33 PM INTERACTIVE MEDIA SPECIALIST documented as of this encounter Plan of Treatment Not on file documented as of this encounter Visit Diagnoses Not on filedocumented in this encounter Additional Health Concerns Infection Onset Date Last Indicated Resolved Time Rule Out COVID-19 02/26/2020 02/26/2020 02/27/2020 4:32 PM INTERACTIVE MEDIA SPECIALIST documented as of this encounter Care Teams Cnc Set Up Operator Relationship Specialty [place] [address] [place], [place] [id number] PCP - General Family Practice 12/29/17 05/21/20 Nikita Gamble MD [address] [place] [phone] PCP - General Family Medicine 05/26/20 Annette Alvarez APRN SPOTTER [address] [place] [place], [place] [id number] Nurse Practitioner Clinical Nurse Specialist 03/22/17 10/21/[address] [place] [address] Success Coach Dietitian, Registered 05/25/18 Tamar Murphy APRN SPOTTER [address] [place] [phone] Assigned PCP 02/08/20 11/15/20 [place] [address] [place] [address] Assigned PCP 11/16/20 12/18/23 Harlan Lin MD NO INFO AVAILABLE Assigned Endocrinology Provider 12/07/20 08/01/21 Mikki Blevins MD [address] [place] [address] Endocrinology, Diabetes, and Metabolism 05/07/21 Mikki Blevins MD [facility] [address] Assigned Endocrinology Provider 08/02/21 01/28/23 Mindi Llanes PA-C [address] [place] [address] Assigned Surgical Provider 09/26/21 08/17/23 documented as of this encounter
--- OUTSIDE RECORDS SUMMARY | 2023-12-28 23:18 | XMS_ITS | Encounter Summary ---
Author Organization [facility] Address [address] [place] [address]. [place] [address] Care Team Providers Care Computer Systems Software Engineer Name Role Phone Antonio Annette Monroe APRN GAMING PIT BOSS Unavailable Goran Lloyd MD Primary Care Provider Jocelyn Davidson RD Unavailable [phone] Tamar Murphy APRN GAMING PIT BOSS Unavailable Nikita Gamble MD Primary Care Provider Naveen Casiano MD Unavailable [phone] Harlan Lin MD Unavailable Milagro vailable Mikki Blevins MD Unavailable [phone] Mikki Blevins MD Unavailable [phone] Mindi Llanes PA-C Unavailable [phone] Encounter Details Date Type Department Care Team (Late st Contact Info) Description 05/26/2018 [facility] [place] [facility] [address] [address] [place] [address] Social History Tobacco Use Types Packs/Day Years Used Date Smoking Tobacco: Never Smokeless Tobacco: Never Alcohol Use Standard Drinks/Week Comments Yes 0 (1 standard drink = 0.6 oz pur e alcohol) rare Sex and Gender Information Value Date Recorded Sex Assigned at Female 03/04/2020 12:33 PM MEDICAL DEVICE SALES Gender Identity Female 03/04/2020 12:33 PM MEDICAL DEVICE SALES Sexual Orientation Straight 03/04/2020 12 :33 PM MEDICAL DEVICE SALES documented as of this encounter Plan of Treatment Not on file documented as of this encounter Visit Diagnoses Not on filedocumented in this encounter Additional Health Concerns Infection Onset Date Last Indicated Resolved Time Rule Out COVID-19 02/26/2020 02/26/2020 02/27/2020 4:32 PM MEDICAL DEVICE SALES documented as of this encounter Care Teams Computer Systems Software Engineer Relationship Specialty [place] [address] [place] [address] PCP - General Family Practice 12/29/17 05/21/20 Nikita Gamble MD [address] [place] [phone] PCP - General Family Medicine 05/26/20 Annette Alvarez APRN GAMING PIT BOSS [address] [place], [place] [phone] Nurse Practitioner Clinical Nurse Specialist 03/22/17 10/21/[address] [place] [address] Staining Machine Operator Dietitian, Registered 05/25/18 Tamar Murphy APRN GAMING PIT BOSS [address] [place] [phone] Assigned PCP 02/08/20 11/15/20 [place] [address] [place] [address] Assigned PCP 11/16/20 12/18/23 Harlan Lin MD NO INFO AVAILABLE Assigned Endocrinology Provider 12/07/20 08/01/21 Mikki Blevins MD [address] [place] [address] Endocrinology, Diabetes, and Metabolism 05/07/21 Mikki Blevins MD [facility] [address] Assigned Endocrinology Provider 08/02/21 01/28/23 Mindi Llanes PA-C [address] [place] [address] Assigned Surgical Provider 09/26/21 08/17/23 documented as of this encounter
[2023-12-28] MEDS: 0.9 % SODIUM CHLORIDE 500 ML 500 ML 1000 ML IV (23:45)
[2023-12-28] MEDS: 0.9 % SODIUM CHLORIDE 1000 ml 1,000 ML IV (23:45)
[2023-12-28 23:48] LABS: Basophils Absolute Auto 0.04 K/uL (0.00-0.30); Basophils Percent Auto 0.6 % (0.0-3.0); Eosinophils Absolute Auto 0.34 K/uL (0.00-0.50); Eosinophils Percent Auto 4.7 % (0.0-7.0); Hematocrit 31.8 % (33.0-51.0); Hemoglobin* 10.7 gm/dL (12.0-16.0); Immature Granulocytes Abs Auto 0.04 K/uL (0.00-0.30); Immature Granulocytes Pct Auto 0.6 %; Lactate* 3.1 mmol/L (0.5-1.9); Lymphocytes Absolute Auto 2.53 K/uL (0.90-2.90); Lymphocytes Percent Auto 34.9 % (20-44); Mean Corpuscular HGB Conc 34 gm/dL (32-36); Mean Corpuscular Hemoglobin 30 pg (26-34); Mean Corpuscular Volume 88 fL (80-100); Monocytes Percent Auto 8.4 % (0.0-11.0); Neutrophils Absolute Auto 3.68 K/uL (1.7-7.0); Neutrophils Percent Auto 50.8 % (42.0-72.0); Platelet Count* 255 K/uL (140-440); RDW Coefficient of Variation % 12.7 % (11.5-15.5); White Blood Count* 7.24 K/uL (4.50-11.00)
[2023-12-28 23:53] LABS: Slide Review Reflex No
[2023-12-29] VITALS (16 sets, daily range): BP systolic 90–203; BP diastolic 41–80; PULSE 62–94; RESP 20; TEMP 36.4; O2SAT 87–97
[2023-12-29 00:04] LABS: Chloride* 96 mmol/L (96-114); Potassium* 4.8 mmol/L (3.6-5.1); Sodium* 126 mmol/L (135-149)
--- NOTE | 2023-12-29 00:06 | CRLHL7_ITS ---
For Patients: As a result of the Cures Act, medical imaging exams and procedure reports are released immediately into your electronic medical record. You may view this report before your referring provider. If you have questions, please contact your health care provider. Indication: Sepsis Technique: Single view of the chest Comparison: Chest radiograph performed 01/24/2022 Findings/Impression: Cardiomegaly and prominent vascular markings, no organized consolidation appreciated. Dictated by Tab Barrear MD @ 12/29/2023 12:50:07 AM (Electronically Signed)
[2023-12-29 00:07] LABS: Anion Gap 11 mEq/L (7-15); Blood Urea Nitrogen* 34 mg/dL (7-30); Carbon Dioxide* 19 mmol/L (20-32); Creatinine* 2.5 mg/dL (0.5-1.5); Est. Creatinine Clearance* 25.63; Estimated Glomerular Filt Rate 22 ml/min; Glucose* 156 mg/dL (60-115)
[2023-12-29 00:08] LABS: Calcium* 8.9 mg/dL (8.4-10.6)
--- NOTE | 2023-12-29 00:09 | ED_ITS ---
HPI - General Adult General Chief complaint: Weakness Stated complaint: weak, lethargic Time Seen by Provider: 12/28/23 23:57 Source: patient and family Mode of arrival: ambulatory History of Present Illness HPI narrative: Year old female presents the emergency department with 1 day of weakness, nonfocal. Feels very tired. She reports that when she had this feeling previously, she had sepsis secondary to a gallbladder infection. This was 2 years ago. Patient has recently had many teeth removed but has been on prophylactic antibiotics with Keflex and reports good compliance. She also has had a recent polypectomy of her uterus through an uncomplicated hysteroscopy. She denies any focal symptoms of infection recently, no shortness of breath, abdominal pain, dysuria or open skin wounds. She does have a history of type 1 diabetes. She reports neck and back pain which are ongoing and essentially unchanged for her. Her supports her story stating that she just became very weak this evening. No injury or falls, denies any focal or stroke-like symptoms. Did not try any interventions prior to coming to the ED. patient had arrived at the ED 45 minutes prior to the start of my shift and had not yet been evaluated. This would account for the delay in her care of sepsis management. In her previous episode of sepsis, this was secondary to cholecystitis. She of course had the gallbladder removed and was hospitalized for 10 days. No immunosuppressants or anticoagulants. Past medical history is pretty extensive. Insulin-dependent type 1 diabetes, peripheral neuropathy, chronic kidney disease, chronic neck and back pain, hypertension. She is also on daily diuretics though she does not endorse cardiac disease on my initial interview. Denies intoxication. Only recent change in her medications is the addition of Keflex following her dental extractions. She otherwise reports that her medications are up-to-date as listed. ROS is notable for the generalized weakness and stable for chronic neck and back pain per her report, otherwise denies times 12 systems. Related Data Home Medications ?Medication ?Instructions ?Recorded ?Confirmed vitamin B complex (B 2 tab PO QDAY 01/13/22 12/28/23 Complex-Vitamin B12 tablet) insulin glargine 100 unit/mL (3 40 unit subcut .prn PRN 02/10/22 12/28/23 mL) subcutaneous pen levothyroxine 150 mcg tablet 150 mcg PO .UD 06/08/23 12/28/23 cholecalciferol (vitamin D3) 25 25 mcg PO QDAY 08/24/23 12/28/23 mcg (1,000 unit) chewable tablet (Vitamin D3) blood-glucose sensor (Dexcom G7 #1 ea 12/05/23 12/28/23 Sensor device) aspirin 81 mg tablet,delayed 81 mg PO QDAY 12/06/23 12/06/23 release (Adult Low Dose Aspirin) tizanidine 4 mg tablet 4 mg PO Q8H PRN 12/28/23 12/28/23 Previous Rx's ?Medication ?Instructions ?Recorded lisinopril 10 mg tablet 10 mg PO DAILY #90 tabs 03/31/23 omeprazole 20 mg capsule,delayed 20 mg PO BID #180 caps 04/21/23 release oxybutynin chloride 10 mg 10 mg PO BID #60 tabs 04/21/23 tablet,extended release 24 hr methocarbamol 500 mg tablet 500 mg PO TID PRN spasm #40 tabs 05/31/23 insulin aspart U-100 100 unit/mL 125 unit (1.25 mL) continuous 08/08/23 subcutaneous solution (Novolog subcutaneous infusion DAILY #100 mL U-100 Insulin aspart) blood sugar diagnostic (Accu-Chek #100 ea 08/10/23 Shantel Plus test strips) pregabalin 300 mg capsule 300 mg PO BID #180 caps 09/22/23 furosemide 40 mg tablet (Lasix) 40 mg PO QDAY #90 tabs 10/10/23 topiramate 100 mg tablet 100 mg PO DAILY #90 tabs 10/10/23 estradiol 0.01% (0.1 mg/gram) 0.5 g vaginal 2XW #42.5 grams 10/17/23 vaginal cream citalopram 40 mg tablet 40 mg PO QDAY #90 tabs 11/08/23 Allergies Allergy/AdvReac Type Severity Reaction Status Date / Time NSAIDS (Non-Steroidal Allergy Severe kidney Verified 12/28/23 23:24 Anti-Inflamma [facility] Medical History Primary hypertension ?I10 - Essential (primary) hypertension (ICD-10) History of herpes genitalis ?Z86.19 - Personal history of other infectious and parasitic diseases (ICD- 10) Seborrheic dermatitis ?L21.9 - Seborrheic dermatitis, unspecified (ICD-10) Cervical radicular pain ?M54.12 - Radiculopathy, cervical region (ICD-10) COVID-19 virus infection ?U07.1 - COVID-19 (ICD-10) Urge incontinence ?N39.41 - Urge incontinence (ICD-10) Osteoarthritis of knees, bilateral ?M17.0 - Bilateral primary osteoarthritis of knee (ICD-10) Stage 3 chronic kidney disease (06/28/16) ?N18.30 - Chronic kidney disease, stage 3 unspecified (ICD-10) Obstructive sleep apnea syndrome ?G47.33 - Obstructive sleep apnea (adult) (pediatric) (ICD-10) Obesity ?E66.9 - Obesity, unspecified (ICD-10) Methicillin resistant Staphylococcus aureus culture positive ?Z22.322 - Carrier or suspected carrier of Methicillin resistant Staphylococcus aureus (ICD-10) Latent tuberculosis diagnosed by blood test ?Z22.7 - Latent tuberculosis (ICD-10) History of tear of meniscus of knee joint ?Z87.828 - Personal history of other (healed) physical injury and trauma (ICD-10) History of pulmonary embolism (06/07/14) ?Z86.711 - Personal history of pulmonary embolism (ICD-10) History of osteomyelitis ?Z87.39 - Personal history of other diseases of the musculoskeletal system and connective tissue (ICD-10) Gastroesophageal reflux disease (05/31/13) ?K21.9 - Gastro-esophageal reflux disease without esophagitis (ICD-10) Recurrent mild major depressive disorder with anxiety (05/31/13) ?F33.0 - Major depressive disorder, recurrent, mild (ICD-10) ?F41.9 - Anxiety disorder, unspecified (ICD-10) Type 1 diabetes mellitus (1974) ?E10.9 - Type 1 diabetes mellitus without complications (ICD-10) Migraine headache ?G43.909 - Migraine, unspecified, not intractable, without status migrainosus (ICD-10) Hypothyroidism ?E03.9 - Hypothyroidism, unspecified (ICD-10) Herpes simplex type 2 infection ?B00.9 - Herpesviral infection, unspecified (ICD-10) Diabetic peripheral neuropathy associated with type 1 diabetes mellitus (10/28/15) ?E10.42 - Type 1 diabetes mellitus with diabetic polyneuropathy (ICD-10) Constipation ?K59.00 - Constipation, unspecified (ICD-10) Need for SBE (subacute bacterial endocarditis) prophylaxis ?Z29.8 - Encounter for other specified prophylactic measures (ICD-10) Surgical History History of incision and drainage (09/16/17) ?Z98.890 - Other specified postprocedural states (ICD-10) S/P trigger finger release (11/18/17) ?Z98.890 - Other specified postprocedural states (ICD-10) Status post finger joint fusion (12/05/17) ?Z98.1 - Arthrodesis status (ICD-10) History of arthroscopy of right knee (~1993) ?Z98.890 - Other specified postprocedural states (ICD-10) History of total left knee replacement (08/22/18) ?Z96.652 - Presence of left artificial knee joint (ICD-10) Hx laparoscopic cholecystectomy ?Z90.49 - Acquired absence of other specified parts of digestive tract (ICD- 10) History of carpal tunnel release (~1989) ?Z98.890 - Other specified postprocedural states (ICD-10) History of total right knee replacement (01/07/21) ?Z96.651 - Presence of right artificial knee joint (ICD-10) History of arthroscopy of shoulder (2003) ?Z98.890 - Other specified postprocedural states (ICD-10) History of right nephrectomy (2007) ?Z90.5 - Acquired absence of kidney (ICD-10) Family History Father Heart disease Type 2 diabetes mellitus Sister Type 2 diabetes mellitus Social History Narrative: , no kids Non-smoker Social EtOH 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 She really likes this job. She does not smoke. She does not drink alcohol She does not use recreational drugs What is your current living situation?: I presently have a place to live Problems where you live: no known problems In the past 12 months, utilities in danger of being shut off: no In past 12 months, lack of transportation kept you from medical appts, meetings, work, or getting things needed for daily living: no In the past 12 mos, have been you worried that your food would run out before you had money to buy more?: never true In the past 12 mos, the food you bought just didn't last and you didn't have money to buy more?: never true Smoking Status: Never smoker How often do you have a drink containing alcohol: never AUDIT-C Alcohol total score: 0 Non-prescribed substance use: denies use Caffeine: Yes (DAILY) How often does anyone, including family, friends and others, physically hurt you : never How often does anyone, including family, friends and others, insult or talk down to you: rarely How often does anyone, including family, friends and others, threaten you with harm: never How often does anyone, including family, friends and others, scream or curse at you: rarely Little interest or pleasure in doing things: not at all Feeling down, depressed, or hopeless: not at all Exam Const: Vital Signs, click to edit/add: Vital Signs - 24 hr 12/28/23 23:20 12/28/23 23:43 12/28/23 23:45 Temperature 97.6 F Pulse Rate Pulse Rate [Right Pulse Oximeter] 68 Respiratory Rate 20 Blood Pressure Blood Pressure [Ri ght Upper Arm] 96/57 L 96/39 L Pulse Oximetry 98 97 Oxygen Delivery Me thod Room Air 12/28/23 23:48 12/28/23 23:50 12/28/23 23:53 Temperature Pulse Rate Pulse Rate [Right Pulse Oximeter] Respiratory Rate Blood Pressure Blood Pressure [Ri ght Upper Arm] 87/44 L 94/40 L 85/41 L Pulse Oximetry 93 63 L 93 Oxygen Delivery Me thod Room Air Room Air Room Air 12/28/23 23:55 12/29/23 00:00 12/29/23 00:05 Temperature Pulse Rate Pulse Rate [Right Pulse Oximeter] 62 62 65 Respiratory Rate Blood Pressure Blood Pressure [Ri ght Upper Arm] 92/41 L 100/41 L 90/49 L Pulse Oximetry 96 91 94 Oxygen Delivery Me thod Room Air Room Air 12/29/23 00:30 12/29/23 00:33 12/29/23 00:35 Temperature Pulse Rate 94 93 Pulse Rate [Right Pulse Oximeter] Respiratory Rate Blood Pressure 203/79 H Blood Pressure [Ri ght Upper Arm] Pulse Oximetry 94 91 Oxygen Delivery Me thod 12/29/23 00:37 12/29/23 00:41 12/29/23 00:46 Temperature Pulse Rate 89 80 75 Pulse Rate [Right Pulse Oximeter] Respiratory Rate Blood Pressure 139/53 L Blood Pressure [Ri ght Upper Arm] Pulse Oximetry 90 87 L 92 Oxygen Delivery Me thod 12/29/23 00:47 12/29/23 00:48 12/29/23 00:50 Temperature Pulse Rate 76 76 75 Pulse Rate [Right Pulse Oximeter] Respiratory Rate Blood Pressure 122/45 L Blood Pressure [Ri ght Upper Arm] Pulse Oximetry 92 92 90 Oxygen Delivery Me thod 12/29/23 00:51 12/29/23 01:07 12/29/23 01:25 Temperature Pulse Rate 71 68 Pulse Rate [Right Pulse Oximeter] Respiratory Rate 20 20 Blood Pressure 127/80 108/50 L 114/45 L Blood Pressure [Ri ght Upper Arm] Pulse Oximetry 97 95 Oxygen Delivery Me thod 12/29/23 01:32 12/29/23 01:50 Temperature 97.6 F Pulse Rate 67 Pulse Rate [Right Pulse Oximeter] 65 Respiratory Rate 20 20 Blood Pressure 114/56 L Blood Pressure [Ri ght Upper Arm] 90/49 L Pulse Oximetry 94 Oxygen Delivery Me thod Documenting provider has reviewed patient's vital signs: yes General appearance: well kempt Other: Appears weak, fatigued. Arouses to voice. Pretty good historian. HENMT: Common normals: normocephalic and head/scalp atraumatic Head and scalp: normocephalic and atraumatic Face and sinus: normal facial exam Other: New dentures present up top, no obvious oral sores, weeping or swelling in surrounding areas. Open and close his jaw normally. No facial swelling or deformity to suggest underlying infection. Eye: Common normals: conjunctivae normal General eye: normal appearance of both eyes Conjunctiva: conjunctiva(e) normal Neck & C-Spine: Common normals: full ROM and no lymphadenopathy General: normal visual inspection Resp: Common normals: normal respiratory effort and no use of accessory muscles Effort & inspection: able to speak in complete sentences Other: Patient in Trendelenburg, difficult exam. Were trying to get her blood pressures up with fluid boluses and I do not risk sitting her up. Breath sounds are decreased but no obvious crackle or wheeze. Cardio: Common normals: regular rate, regular rhythm, S1 normal heart sound and S2 normal heart sound Rate: regular rate Rhythm: regular rhythm Heart sounds: S1 normal and S2 normal GI: Other: Right-sided ventral hernia but otherwise does not seem distended. Bowel sounds are hypoactive throughout. No obvious mass. Slight periumbilical blister and lots of old surgical scars consistent with her reported history. Extremity: Other: 2+ edema on right, 1+ on left. Neuro: Common normals: moves all extremities Speech: speech normal Other: Generalized global weakness but she can move all extremities on command. No obvious facial droop. No slurring. Psych: Appearance: well kempt Attitude: calm Mood and affect: euthymic mood Other: Acutely ill but behavior appropriate. Skin: Narrative: No obvious open sores or wounds on legs, arms, abdomen. Course Course ED Course: Hypotensive female presenting with weakness. Multiple risk factors for sepsis including type 1 diabetes, prior sepsis. Will bolus 2 L of normal saline, 1 L was completed prior to my arrival on shift. Begin Levophed through peripheral IV to raise blood pressure, wean if able as this is not ideal, especially in a patient with vascular disease. We will need to try to transfer urgently rather than perform extensive workup here in our ED due to the fact that we are needing pressors through peripheral IV. We do not have the capacity to place a central line. Initial called Ryne Gonzales at 12:18 a.m.. Awaiting callback from machinery cleaner.12:50 callback completed- 8 hr bed delay. will try to get central line and pursue workup here. Update: Blood pressures remained hypotensive, will need to start pressors through peripheral line. Nursing started Levophed at 0.1, reported blood pressure increased rapidly to 200 systolic. Instructed to turn this back off, recheck of blood pressure quickly improved to 109 systolic. Patient is going to get up to the bedside commode to try to give a urine sample prior to starting her vancomycin and Zosyn. Will recheck blood pressure and if needed, restart at 0.05. Reevaluation(s) Time of Reevaluation #1: 02:01 Reevaluation #1: Patient transferred about 10 minutes ago. We were able to stop the Levophed. So do not have any imaging results back but blood pressures are improving, was able to produce some urine. Cultures have been ordered, vancomycin and Zosyn initial dose on route. EMS team instructed to restart the Levophed if blood pressures fall again as 0.05. Transferred without complication to [facility]. Vital Signs Vital signs: Initial Vital Signs Temperature 97.6 F 12/28/23 23:20 Temperature Source Temporal Artery Scan 12/28/23 23:20 Pulse Rate 68 12/28/23 23:20 Respiratory Rate 20 12/28/23 23:20 Blood Pressure 96/57 L 12/28/23 23:20 Blood Pressure Mean 70 12/28/23 23:20 Blood Pressure Position Supine 12/28/23 23:20 Pulse Oximetry 98 12/28/23 23:20 Oxygen Delivery Method Room Air 12/28/23 23:20 Vital Signs Temperature 97.6 F 12/28/23 23:20 Pulse Rate 68 12/28/23 23:20 Respiratory Rate 20 12/28/23 23:20 Blood Pressure 96/57 L 12/28/23 23:20 Pulse Oximetry 98 12/28/23 23:20 Oxygen Delivery Method Room Air 12/28/23 23:20 Temperature 97.6 F 12/29/23 01:50 Pulse Rate 65 12/29/23 01:50 Respiratory Rate 20 12/29/23 01:50 Blood Pressure 90/49 L 12/29/23 01:50 Pulse Oximetry 94 12/29/23 01:32 Oxygen Delivery Method Room Air 12/29/23 00:05 Medications Administered Medications: Discontinued Medications Generic Name Dose Route Start Last Admin Trade Name Freq PRN Reason Stop Dose Admin Norepinephrine/Dextrose 4,000 mcg in 250 mls @ 39.122 mls/hr 12/29/23 00:15 12/29/23 00:31 Norepinephrine Infusion IV 0 mcg/kg/min CONT THEE 0 mls/hr Titration Protocol 0.1 MCG/KG/MIN Lactated Ringer's 1,000 mls @ 500 mls/hr 12/29/23 00:08 12/29/23 00:14 Lactated Ringers 1000 Ml IV 12/29/23 02:07 500 mls/hr .Q2H THEE Administration Sodium Chloride 500 mls @ 1,000 mls/hr 12/29/23 00:22 12/29/23 00:24 0.9 % Sodium Chloride 500 Ml IV 12/29/23 00:51 Infused .Q30M THEE Infusion Sodium Chloride 1,000 mls @ 1,000 mls/hr 12/29/23 00:22 12/29/23 00:24 0.9 % Sodium Chloride 1000 Ml IV 12/29/23 01:21 Infused .Q1H THEE Infusion Vancomycin/PEG/NADA/Lysine/Water 2 gm in 400 mls @ 200 mls/hr 12/29/23 00:52 12/29/23 01:26 Vancomycin 2 Gm/400 Ml IVPB 12/29/23 02:51 200 mls/hr ONCE ONE Administration Protocol Piperacillin Sod/Tazobactam 100 mls @ 200 mls/hr 12/29/23 00:52 12/29/23 01:49 Sod 3.375 gm/ Sodium Chloride IVPB 12/29/23 00:53 Infused ONCE ONE Infusion Medical Decision Making Lab Data Lab results reviewed: Yes I reviewed the patient's lab results Labs: Lab Results 12/28/23 12/29/23 12/29/23 Range/Units 23:30 00:00 01:15 WBC 7.24 (4.50-11.00) K/uL RBC 3.60 L (4.00-5.20) m/uL Hgb 10.7 L (12.0-16.0) gm/dL Hct 31.8 L (33.0-51.0) % MCV 88 (80-100) fL MCH 30 (26-34) pg MCHC 34 (32-36) gm/dL RDW Coeff of Vin 12.7 (11.5-15.5) % Plt Count 255 (140-440) K/uL Neut % (Auto) 50.8 (42.0-72.0) % Lymph % (Auto) 34.9 (20-44) % Tyrrell % (Auto) 8.4 (0.0-11.0) % Eos % (Auto) 4.7 (0.0-7.0) % Baso % (Auto) 0.6 (0.0-3.0) % Neut # (Auto) 3.68 (1.7-7.0) K/uL Lymph # (Auto) 2.53 (0.90-2.90) K/uL Tyrrell # (Auto) 0.60 (0.00-0.90) K/UL Eos # (Auto) 0.34 (0.00-0.50) K/uL Baso # (Auto) 0.04 (0.00-0.30) K/uL Abs Immat Gran (auto) 0.04 (0.00-0.30) K/uL Imm/Tot Granulo (auto) 0.6 % VBG pH 7.332 (7.32-7.43) VBG pCO2 37 L (40-50) mmHG VBG pO2 69.0 H (25-47) mmHG VBG HCO3 20 L (21-28) mmol/L Sodium 126 L (135-149) mmol/L Potassium 4.8 (3.6-5.1) mmol/L Chloride 96 (96-114) mmol/L Carbon Dioxide 19 L (20-32) mmol/L Anion Gap 11 (7-15) mEq/L BUN 34 H (7-30) mg/dL Creatinine 2.5 H (0.5-1.5) mg/dL Estimated Creat Clear 25.63 Estimated GFR 22 ml/min Glucose 156 H (60-115) mg/dL Lactate 3.1 H (0.5-1.9) mmol/L Calcium 8.9 (8.4-10.6) mg/dL Total Bilirubin 0.4 (0.1-1.5) mg/dL Direct Bilirubin 0.4 (0.0-0.5) mg/dL AST 30 (12-35) U/L ALT 15 (4-35) U/L Alkaline Phosphatase 74 (40-150) U/L Troponin I < 0.01 L (0.01-0.04) ng/mL Total Protein 7.2 (6.0-8.3) g/dL Albumin 4.2 (3.3-5.0) g/dL Procalcitonin 0.08 (<0.50) ng/mL Urine Color Yellow (Yellow) Urine Appearance Clear (Clear) Urine pH 5.5 (5.0-8.5) Ur Specific Ehrenberg <= 1.005 (1.000-1.030) Urine Protein Negative (Negative) Urine Glucose (UA) Negative (Negative) Urine Ketones Negative (Negative) Urine Blood Trace-intact A (Negative) Urine Nitrite Negative (Negative) Urine Bilirubin Negative (Negative) Urine Urobilinogen 0.2 (0.2-1.0) Ur Leukocyte Esterase Trace A (Negative) Urine RBC 0-2 (0-2) Urine WBC 0-2 (0-5) Ur Squamous Epith Cells Few (None-Few) Urine Bacteria Few A (None) ECG Data Attestation: I personally reviewed and interpreted this ECG as follows: Prior ECG tracings: available for review Interpretation: Most recent comparison April 20. Sinus rhythm, time of EKG rate is 90 but has consistently been in the low 60s. Normal axis and intervals with some slight flattening of the lateral T-waves which is unchanged from previous. No other obvious signs of ischemia. Stable EKG. 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 omeprazole 20 mg capsule,delayed release(DR/EC) 20 mg PO BID Qty: 180 3RF cholecalciferol (vitamin D3) [Vitamin D3] 25 mcg (1,000 unit) tablet,chewable 25 mcg PO QDAY (ADELE) DexInformous G7 Sensor Device See Rx Instructions .ROUTE .MEDSUPPLY Qty: 1 Patient Comments: [NO ORIGINAL SIG] Rx Instructions: As directed aspirin [Adult Low Dose Aspirin] 81 mg tablet,delayed release (DR/EC) 81 mg PO QDAY tizanidine 4 mg tablet 4 mg PO Q8H PRN lisinopril 10 mg tablet 10 mg PO DAILY Qty: 90 2RF methocarbamol 500 mg tablet 500 mg PO TID PRN (Reason: spasm) Qty: 40 1RF insulin aspart U-100 [Novolog U-100 Insulin aspart] 100 unit/mL solution 125 unit continuous subcutaneous infusion DAILY Qty: 100 1RF Patient Comments: For insulin pump use. Up to 125 units per day. pregabalin 300 mg capsule 300 mg PO BID Qty: 180 0RF topiramate 100 mg tablet 100 mg PO DAILY Qty: 90 0RF furosemide [Lasix] 40 mg tablet 40 mg PO QDAY Qty: 90 0RF estradiol 0.01 % (0.1 mg/gram) cream 0.5 g vaginal 2XW Qty: 42.5 0RF citalopram 40 mg tablet 40 mg PO QDAY Qty: 90 1RF
[2023-12-29] MEDS: LACTATED RINGERS 1000 ML 1,000 ML 500 ML IV (00:14)
[2023-12-29 00:28] LABS: HCO3 VBG 20 mmol/L (21-28); PCO2 VBG 37 mmHG (40-50); pH VBG 7.332 (7.32-7.43)
[2023-12-29 00:33] LABS: Albumin* 4.2 g/dL (3.3-5.0)
[2023-12-29 00:36] LABS: Alanine Aminotransferase* 15 U/L (4-35); Alkaline Phosphatase* 74 U/L (40-150); Aspartate Amino Transferase* 30 U/L (12-35); Bilirubin Direct* 0.4 mg/dL (0.0-0.5); Bilirubin Total* 0.4 mg/dL (0.1-1.5); Total Protein* 7.2 g/dL (6.0-8.3)
--- NOTE | 2023-12-29 00:37 | CRLHL7_ITS ---
For Patients: As a result of the Century Cures Act, medical imaging exams and procedure reports are released immediately into your electronic medical record. You may view this report before your referring provider. If you have questions, please contact your health care provider. INDICATION: Sepsis. TECHNIQUE: CT chest, abdomen and pelvis acquired without contrast. COMPARISON: CT abdomen pelvis 01/24/2022. FINDINGS: CHEST: Cardiovascular structures: Heart size is normal. Thoracic aorta and main pulmonary artery are normal in caliber. Mediastinum and norman: No mass or adenopathy. Lungs and pleura: No consolidation. There is mild interlobular septal thickening with mild bilateral ground-glass/mosaic attenuation. No pleural effusion or pneumothorax. Chest wall and axilla: No mass or adenopathy. Bones: No acute or suspicious osseous abnormality. ABDOMEN AND PELVIS: Liver: Unremarkable. Gallbladder and bile ducts: Cholecystectomy. Left-sided pneumobilia is present in addition to air within the common bile duct. No biliary ductal dilatation. Pancreas: Unremarkable. Spleen: Unremarkable. Adrenal glands: Unremarkable. Kidneys: Right nephrectomy. Normal left kidney. No urinary calculi. GI tract: No bowel obstruction. No suspicious bowel wall thickening. Normal caliber appendix. Vascular structures: Atherosclerotic calcifications of the aorta. No abdominal aortic aneurysm. Lymph nodes: No suspicious lymphadenopathy. Miscellaneous: No ascites or pneumoperitoneum. Pelvic Organs: No suspicious uterine or adnexal mass. No intra-abdominal/pelvic fluid collection. Bones: No acute or suspicious osseous abnormality. IMPRESSION: 1. Predominantly left-sided pneumobilia which may reflect sequelae of recent biliary instrumentation, however infectious etiologies are not definitively excluded. Clinical correlation recommended. 2. Interlobular septal thickening with scattered ground-glass/mosaic attenuation which may reflect mild interstitial pulmonary edema. Please note that all CT scans at this facility use dose modulation, iterative reconstruction, and/or weight-based dosing when appropriate to reduce radiation dose to as low as reasonably achievable. Dictated by Woody Jefferson MD @ 12/29/2023 2:16:56 AM (Electronically Signed)
--- NOTE | 2023-12-29 00:38 | CRLHL7_ITS ---
For Patients: As a result of the Century Cures Act, medical imaging exams and procedure reports are released immediately into your electronic medical record. You may view this report before your referring provider. If you have questions, please contact your health care provider. INDICATION: Sepsis. Recent dental extraction. TECHNIQUE: CT maxillofacial without contrast. COMPARISON: None. FINDINGS: Examination limited by motion. Facial bones: No definite fractures or bone lesions. Specifically the nasal bones, temporomandibular joints, maxilla and mandible appear intact. Orbits and globes: Unremarkable. Globes are intact. No sign of intraorbital hemorrhage or emphysema. Sinuses: No acute or significant findings. Soft tissues: No definite fluid collection or abscess is appreciated. IMPRESSION: Extremely limited examination due to motion. No definite fluid collection or abscess is appreciated. No definite osseous abnormality. Please note that all CT scans at this facility use dose modulation, iterative reconstruction, and/or weight-based dosing when appropriate to reduce radiation dose to as low as reasonably achievable. Dictated by Woody Jefferson MD @ 12/29/2023 2:06:24 AM (Electronically Signed)
--- OUTSIDE RECORDS SUMMARY | 2023-12-29 00:38 | XMS_ITS | Clinical Summary ---
Author Organization [facility] Address [address] [place] [address] Care Team Providers Care Adult Manager Name Role Phone Nikita Gamble MD Primary Care Provider [phone] Source Comments You are receiving this document as you are listed as the primary care provider,follow-up provider, or the patient has been referred to you for consultation.This is in compliance with the Medicare and[facility] EHR Incentive Program,which states Providers who transition their patient to another setting of careor provider of care or refers their patient to another provider of care shouldprovide summary care record for each transition of care or referral. [employer] Allergies Active Allergy Reactions Criticality Noted Date [...] Diabetes 15 mL 11 06/11/2015 Active rizatriptan (MAXALT-PALEONTOLOGY TEACHER) 10 MG disintegrating tablet Take 1 Tablet [...] 1 diabetes mellitus with diabetic neuropathy, unspecified ([facility]) Use for continuous glucose monitoring. [...] daily. Pain 7-11/04. Can't be seen at [facility], owes them money. They suggested 2 total [...] 10:04 AM CDT Anesthesia Event Operating Room [address] [place] [address] Sridhar Walter MD Lange, Beth N, APRN, CHI 12/14/2023 10:00 AM CDT - 12/14/2023 11:15 AM CDT Surgery [facility] Operating Room [address] [place] [address] Carol Phillips MD HYSTEROSCOPY WITH TRUCLEAR, polypectomy, PAP SMEAR AND VULVAR BIOPSY 12/14/2023 8:02 AM CDT - 12/14/2023 12:46 PM CDT Hospital Encounter Operating Room [address] [place] [address] Carol Phillips MD Postmenopausal bleeding Discharge Disposition: Home 12/07/2023 Telephone [facility] [address] [place] [address] Logan Parra PA-C 12/01/2023 8:15 AM CDT Office Visit [facility] [address] [place] [address] Mixed stress and urge urinary incontinence (Primary Dx) 11/22/2023 3:40 PM CDT Telemedicine [place] [facility] [address] [facility] [place] [address] Carol Phillips MD Endometrial polyp (Primary Dx); PMB (postmenopausal bleeding); Genitourinary syndrome of menopause 10/27/2023 3:00 PM CDT Lab Visit [facility] [address] [place] [address] Routine medical exam 10/21/2023 Telephone [place] [facility] [address] [facility] [place] [address] Carol Phillips MD Surgery Scheduling 10/17/2023 1:00 PM CDT Ancillary Procedure [facility] OB Ultrasound [address] [place] [address] Candice Coates MD Postmenopausal bleeding (Primary Dx) 10/17/2023 10:00 AM CDT Office Visit [facility] UroGynecology [address] [place] [address] Candice Coates MD Postmenopausal bleeding (Primary Dx); OAB (overactive bladder); Urge incontinence; Mixed stress and urge urinary incontinence; Urinary retention 10/07/2023 Telephone [facility] [address] [place] [address] Candice Coates MD from Last 3 Months Immunizations Name Administration Dates Next Due Influenza IIV4 (Quadrivalent) 0.5mL (14615) 07/2014 Family History Medical History Relation Name [...] Info) Description 12/29/2023 8:30 AM CDT Telemedicine [facility] UroGynecology [address] [place] [address] Candice Coates MD [address] [facility] [address] [place] [address] Health Maintenance Due Date Last Done Comments [...] 3:14 PM CDT Routine medical exam OBGYN PELVIC/PARCEL POST OFFICER ULTRASOUND Routine 10/17/2023 1:39 PM CDT Postmenopausal [...] AM CDT) Case Report Surgical Pathology ?Case: [id number] ? Authorizing Provider: ??Carol Phillips MD ?Collected: ? 12/14/2023 1104 ? Ordering Location: ? [facility] Operating Room ?Received: ?12/14/2023 1132 ? Pathologist: ? Joann Mckeon MD ? Specimens: ?? A) - Labia, left, Left superior labial biopsy ? B) - Vulva, Left vestibule ? C) - Uterus, Endometrial currettings ? 12/22/2023 1:37 PM [facility] FINAL DIAGNOSIS A. Skin, Labia, left superior, [...] Clinical correlation is recommended. 12/22/2023 1:37 PM [facility] Clinical Information Postmenopausal bleeding 12/22/2023 1:37 PM [facility] Microscopic Description A. Microscopic examination including multiple deeper recut sections is performed. B/C. Microscopic examination is performed. 12/22/2023 1:37 PM [facility] Special Stains The stain controls have been reviewed and stain appropriately. 12/22/2023 1:37 PM [facility] Gross Description A: The specimen is received [...] in 1 cassette. TK 12/22/2023 1:37 PM [facility] Embedded Images 12/22/2023 1:37 PM [facility] Tissue GENITAL LABIUM STRUCTURE / Unknown 12/14/2023 11:04 AM CDT 12/14/2023 11:32 AM CDT Tissue specimen (specimen) VULVAL STRUCTURE / Unknown 12/14/2023 11:09 AM CDT 12/14/2023 11:32 AM CDT Tissue specimen (specimen) UTERINE STRUCTURE / Unknown 12/14/2023 11:16 AM CDT 12/14/2023 11:32 AM CDT Carol Phillips MD LAB PATHOLOGY [address] [address], [facility] * Glucose, Whole Blood POCT (12/14/2023 9:03 AM CDT) Glucose, Whole Blood 174 70 - 180 mg/dL 12/14/2023 9:05 AM CDT [facility] Performing Location [facility] PSCU 12/14/2023 9:05 AM CDT [facility] Blood 12/14/2023 9:03 AM CDT 12/14/2023 9:05 AM CDT Carol Phillips MD LAB_1 Performing Organization Address City/State/[facility] Co de Phone Number [address] * DNA Analysis Discrete Sequence Variation Panel (Blood) (Initial) (10/27/2023 3:14 PM CDT) Date Sample Received at Testing Lab 10/29/2023 12/28/2023 4:09 PM CDT [facility] Familial Hypercholesterolemia Not Detected 12/28/2023 4:09 PM CDT [facility] Comment: Pathogenic variant not detected. Genes Tested: BRCA1, BRCA2, MLH1, MSH2, MSH6, PMS2, EPCAM, APOB, LDLR, LDLRAP1, PCSK9 Test Description: [facility] Tier One Population Screen is a screening test that analyzes 11 genes related to hereditary breast and ovarian cancer (HBOC) syndrome, Plietez syndrome, and familial hypercholesterolemia. This test only reports clinically significant pathogenic and likely pathogenic variants, unlike diagnostic testing, which also reports variants of uncertain significance (VUS). In addition, analysis of the PMS2 gene excludes exons 11-15, which overlap with a known pseudogene (PMS2CL). Disclaimer: This test was developed and validated by [facility]. This test has not been cleared or approved by the [place] Food and Drug Administration (FDA). The [facility] laboratory is accredited by the College of [place] Pathologists (CAP) and certified under the Clinical Laboratory Improvement Amendments (CLIA #: [id number]) to perform high-complexity clinical tests. This test is used for clinical purposes. It should not be regarded as investigational or for research. Methods and Limitations: Extracted DNA is enriched for targeted regions and then sequenced using the [facility] Exome+ (R) assay on an Illumina DNA sequencing system. Data is then aligned to a modified version of GRCh38 and all genes are analyzed using the MIREYA transcript and MIREYA Plus Clinical transcript, when available. Small variant calling is completed using a customized version of [employer] CleanEdison software, augmented by a proprietary small variant [...] is based upon guidelines published by the [place] [employer] and Gen[employer] (ACMG) and the Association for Molecular Pathology (AMP) or their modification by ClinGen Variant Curation Expert Panels when available. Interpretation is limited to the transcripts indicated on the report and +/- 10 bp into intronic regions, except as noted below. [place] variant classifications include pathogenic, likely pathogenic, variant [...] the promoter. Sequencing Location: Sequencing done at [facility]., [address] [place] [address], [address], [place] [address] ([facility]# [id number]) Designation: Venkata Ma, PhD, FACG Email: [email or web address] Breast and Ovarian Cancer Syndrome Not Detected 12/28/2023 4:09 PM CDT [facility] Comment:Pathogenic variant n ot detected. Pleitez Syndrome Not Detected 12/28/2023 4:09 PM CDT [facility] Comment:Pathogenic variant n ot detected. Blood or Saliva VENOUS BLOOD SPECIMEN / Unknown 10/27/2023 3:14 PM CDT 10/27/2023 3:14 PM CDT Everardo Go MD LAB_1 [facility] [address] [facility] [address] [place] [address] * (ABNORMAL) OBGYN Pelvic/Button Bradder Ultrasound (10/17/2023 1:39 PM CDT) Uterus AP Diameter (Height) 2.60 cm EXTERNAL RESULTS Uterus Longitudinal Diameter (Length) 6.40 cm EXTERNAL RESULTS Uterus Transverse Diameter (Width) 3.50 cm EXTERNAL RESULTS Uterus Volume 30.49 ml REVENUE ANALYST AL RESULTS Endometrium Thickness 6.10 mm EXTERNAL [...] from the original result was not included. PARCEL POST OFFICER Ultrasound Exam performed on: ??10/17/2023 Referring provider: Candice Coates MD Referring clinic: [facility]YNECOLOG[facility] Clinical indications: Postmenopausal bleeding Can Maker(s) initials: The pelvic organs are imaged using: [...] up with referring provider. ??Recommend consultation with compliance nurse for hysteroscopy. ??Patient requested expedited surgery scheduling therefore surgical orders were placed. ?? Carol Phillips MD Candice Coates MD RAD US * (ABNORMAL) Urinalysis Routine, Micro/Culture if Pos: Straight catheter (10/17/2023 11:24 AM CDT) Urine Culture Comment Urinalysis results do not meet criteria for urine culture reflex. 10/17/2023 11:41 AM [facility] Urine Color Yellow 10/17/2023 11:41 AM [facility] Urine Clarity Clear Clear 10/17/2023 11:41 AM [facility] Specific [place], Urine <=1.005(A) 1.005 - 1.030 10/17/2023 11:41 AM [facility] PH Urine 6.0 5.0 - 8.0 10/17/2023 11:41 AM [facility] Protein, Urine Qual (mg/dL) Negative Neg/Trace 10/17/2023 11:41 AM [facility] Glucose Urine Qual (mg/dL) Negative Negative 10/17/2023 11:41 AM [facility] Ketones, Urine (mg/dL) Negative Negative 10/17/2023 11:41 AM [facility] Urobilinogen, Urine (EU/dL) 0.2 <2.0 10/17/2023 11:41 AM [facility] Bilirubin Urine Negative Negative 10/17/2023 11:41 AM [facility] Blood, Urine Negative Neg/Trace 10/17/2023 11:41 AM [facility] Nitrite Urine Negative Negative 10/17/2023 11:41 AM [facility] Leukocyte Est. Negative Negative 10/17/2023 11:41 AM [facility] Urine Source Straight catheter 10/17/2023 11:41 AM [facility] Urine (Straight catheter) Non-blood Collection / Unknown 10/17/2023 11:24 AM CDT 10/17/2023 11:39 AM CDT Candice Coates MD LAB_1 [facility] [address] [place], [place] [address] [place] [address] * (ABNORMAL) Renal Function Panel (08/05/2023 2:00 PM CDT) Sodium 135(L) 136 - 145 mmol/L 08/05/2023 6:52 PM T [facility] Potassium 4.7 3.5 - 5.1 mmol/L 08/05/2023 6:52 PM T [facility] Chloride 102 98 - 109 mmol/L 08/05/2023 6:52 PM T [facility] CO2 23 20 - 29 mmol/L 08/05/2023 6:52 PM [facility] Anion Gap 10 6 - 16 mmol/L 08/05/2023 6:52 PM [facility] Calcium 9.4 8.4 - 10.4 mg/dL 08/05/2023 6:52 PM T [facility] BUN 24 7 - 26 mg/dL 08/05/2023 6:52 PM [facility] Creatinine 1.62(H) 0.55 - 1.02 mg/dL 08/05/2023 6:52 PM [facility] Albumin 3.6 3.5 - 5.0 g/dL 08/05/2023 6:52 PM T [facility] Phosphorus 2.8 2.3 - 4.7 mg/dL 08/05/2023 6:52 PM T [facility] Glucose 93 70 - 100 mg/dL 08/05/2023 6:52 PM [facility] Comment:The given reference range is for the fasting state. Non-fasting reference range for glucose is 70 - 180 mg/dL. GFR, Estimated 37(L) >60 mL/min/1. 73m2 08/05/2023 6:52 PM [facility] Hours Fasting 0.1 8 - 12 Hours 08/05/2023 6:52 PM [facility] Blood Venipuncture / Unknown 08/05/2023 2:00 PM CDT 08/05/2023 2:00 PM CDT Nancy Stock MD LAB_1 [facility] [address] * (ABNORMAL) HgbA1c - Collect in Lab (08/05/2023 2:00 PM CDT) Pathologist [facility] Hemoglobin A1C 8.3(H) <=5.6 % 08/05/2023 7:54 PM CDT [facility] Estimated Average Glucose (Calc) 192 < 117 mg/dL 08/05/2023 7:54 PM CDT [facility] Comment:Estimated average gl ucose (eAG) converts A1c into glucose units (mg/dL) and estimates average glucose over the past approximately 3 months. The eAG reference interval (<117 mg/dL) corresponds to an A1c of <5.7%. Blood Venipuncture / Unknown 08/05/2023 2:00 PM CDT 08/05/2023 2:00 PM CDT Narrative [facility] - 08/05/2023 7:54 PM CDT For patients not previously diagnosed with diabetes: 5.7-6.4%: Increased risk for diabetes 6.5% and greater: Diagnostic for diabetes For patients diagnosed with diabetes: <8.0%: Goal of therapy for ages 18-75 Clinicians may recommend a higher or lower goal for specific individuals. Logan Parra PA-C LAB_1 Performing Organization Address [facility] Co de Phone Number [facility] [address] * (ABNORMAL) Albumin/Creatinine Ratio,Random Urine (06/23/2023 12:28 PM CDT) Albumin/Creati nine Ratio, Urine, Random 75(H) <30 mg/g 06/23/2023 7:38 PM CDT [facility] Albumin, Urine, Random 44.2 mg/L 06/23/2023 7:38 PM CDT [facility] Creatinine, Urine, Random 59 >20 mg/dL mg/dL 06/23/2023 7:38 PM CDT [facility] Urine Non-blood Collection / Unknown 06/23/2023 12:28 PM CDT 06/23/2023 12:28 PM CDT Nancy Stock MD LAB_1 [facility] [address] [address], [facility] from Last 3 Months or Most Recently Relevant to Health Maintenance Additional Health Concerns Infection Onset Date Last Indicated MRSA Comment:Beronica 12-29-14, 01/06/16 12/30/2014 12/30/2014 Advance Directives * Full Code (Latest Code Status on File) Date Activated Date Inactivated Comments 04/28/2015 1:31 AM 04/30/2015 6:39 PM * Full Code Date Activated Date Inactivated Comments 12/29/2014 11:37 AM 12/30/2014 6:20 PM Care Teams Adult Manager Relationship Specialty Start Date End Date Nikita Gamble MD [address] [place] [address] PCP - General Family Practice 06/23/23
--- OUTSIDE RECORDS SUMMARY | 2023-12-29 00:38 | XMS_ITS | Continuity of Care Document ---
Author Organization [facility] Address [address] [place] [address] Care Team Providers Care Water Quality Control Engineer Name Role Phone Bacilio Henderson CRNA Unavailable [...] Diagnoses Date Provider Providers Copied on Encounter [facility], [address] [place], [place], [id number], [facility] No Information 4 Santiago Ribera. [address] [place] [address], [id number] , . tel: [phone] Referring Provider: Woody Michelle, [address] [place], [address] . tel:[phone] [facility], [address] [place] [address], [id number], [facility] No Information 4 Maurice Crow. [address] [facility], [place], [place], [id number] , . tel:[phone] Referring Provider: Woody Michelle, [address] [place], [address] . tel:[phone] [facility], [address] [facility] [place], [id number], [facility] [place] No Information 3 Santiago Ribera. [address], [facility] [place], [place], [place], [id number] , . tel: [phone] Referring Provider: Woody Ahn, [address] [place] [address] [place], [address] . tel:[phone] [facility], [address] [place] [address] [place], [id number], [facility] [place] No Information 3 Marshajhon Atiya. [address] [place], [place] [address], [address], . tel: [phone] Referring Provider: Woody Michelle, [address] [place] [address], [address] . tel:[phone] [facility], [address] [place] [address] [place], [id number], [facility] No Information 3 Santiago Ribera. [address], [facility], [place], [place], [id number] , . tel: [phone] Referring Provider: Woody Michelle, [address] [place] [address], [id number] . tel:[phone] Family History Family Member Type Diagnosis Age At Onset No Information Payers Payer name Insurance type Covered republican ID Gabriele tyson[facility]s) [facility] [id number] Social History Type Description Quantity Date Captured [...]
--- OUTSIDE RECORDS SUMMARY | 2023-12-29 00:38 | XMS_ITS | Encounter Summary ---
Author Organization [email or web address] Address [address] [place] [address] Care Team Providers Care Superintendent Automotive Name Role Phone Nikita Gamble MD Primary Care Provider [phone] Reason for Visit * Auth/Cert (Routine) Specialty Diagnoses / Procedures Referred By Contac t Referred To Contact Diagnoses Postmenopausal bleeding . Procedures HYSTEROSCOPY WITH MYOSURE, polypectomy Referral ID Status Reason Start Date Expiration Date Visits Re quested Visits Authorized [id number] 1 1 Encounter Details Date Type Department Care Team (Late st Contact Info) Description 12/14/2023 10:04 AM CDT Anesthesia Event [facility] Operating Room [address] [place] [address] Sridhar Walter MD [address] [place] [address] Karmen Dorantes APRN, [facility] [address] [place] [address] Anesthesia Record Procedure Summary Procedure Name Responsible [...] report Electronically signed by Karmen Dorantes APRN, COMMERCIAL REAL ESTATE LENDER [address] An [facility] transferre d. Meds Name Total propofol 10 [...] Walter MD - 12/14/2023 2:10 PM CDT [facility] Anesthesia Post-op Note Patient: Marnie [...] Walter MD - 12/14/2023 9:32 AM CDT [facility] Anesthesia Pre-op Evaluation Procedure: HYSTEROSCOPY [...] Heart protection ??? Blood Glucose Monitoring Suppl (AudioTag CONTOUR MONITOR) W/DEVICE KIT kit As instructed [...] mg) by mouth every 8 hours. ??? Zadspace G7 Sensor continuous blood glucose device Use [...] dose Indications: Insulin- Dependent Diabetes ??? lancets (AudioTag MICROLET LANCETS) Use as directed. Pharmacy dispense [...] mouth two times a day. ??? rizatriptan (MAXALT-EPIC KALEIDOSCOPE ANALYST) 10 MG disintegrating tablet Take 1 Tablet [...] QT 402 ms QTc 442 ms P Gans 59 degrees R Gans 36 degrees T Gans 67 degrees Physical Exam: BP (!) 143/57 [...] damaging the partial. The patient and/or their advertising account representative were notified about the potential risks of damage to the lips, teeth, dental devices, mouth and airway. H&P Reviewed and Patient examined, no change observed IV access Antibiotics per surgery Electronically signed by: Sridhar Walter MD 12/14/2023 9:32 AM documented in this encounter Plan of Treatment Upcoming Encounters Date Type Department Care Team (Late st Contact Info) Description 12/29/2023 8:30 AM CDT [facility] Uro[facility] [address] [place] [address] Candice Coates MD [address] [facility] [address] [place] [address] documented as of this encounter Visit Diagnoses [...] documented as of this encounter Care Teams Superintendent Automotive Relationship Specialty Start Date End Date Nikita Gamble MD [address] [place] [address] PCP - General Family Practice 06/23/23 documented as of this encounter
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
--- OUTSIDE RECORDS SUMMARY | 2023-12-29 00:38 | XMS_ITS | Continuity of Care Document ---
Author Organization [facility] enter Address [address] [place] [address] Phone Care Team Providers Care Logistics Administrator Name Role Phone [facility] Unavailable Unava ilable Procedures Procedure Date [...] Diagnoses Date Provider Providers Copied on Encounter [facility], [address] [place] [address], [id number], [place] tel:[phone] [facility] No Information [facility]. [address] [place] [address], [id number], . tel:[phone] Referring Provider: Woody Michelle, [address] [place], [address] . tel:[phone] [facility], [address] [place] [address], [id number], tel:[phone] [facility] No Information 4 [facility]. [address] [place] [address], [id number], . tel:[phone] Referring Provider: Woody Michelle, [address] [place], [address] . tel:[phone] [facility], [address] [place] [address], [id number], tel:[phone] [place] [address] No Information 3 [facility]. [address] [place] [address], [id number], . tel:[phone] Referring Provider: Jammie Cruz, [address] [place], [address] . tel:[phone] Family History Family Member Type Diagnosis Age At Onset No Information Payers Payer name Insurance type Covered democrat ID Gabriele tyson(s) [facility] [id number] Social History Type Description Quantity Date Captured [...]
--- OUTSIDE RECORDS SUMMARY | 2023-12-29 00:38 | XMS_ITS | Continuity of Care Document ---
Author Organization [facility] Address [address] [address] [place] [address] Phone Care Team Providers Care Speech Language Pathologist Prn Name Role Phone Rebecca MERCADO, Torey Unavailable Unavailable Procedures Procedure Date ERCP w/FB or stent removal Ercp; W/endo Retro Remov Stone Ercp; W/endo Retro Remov Stone ERCP w/stent & sphinc Advance Directives Directive Yes / No Effective Date File Name No Information Encounters Encounter Description Practice Location Reason(s) For Visit Diagnoses Date Provider Providers Copied on Encounter [facility], [address] [address], [place], [place], [id number], [place] [phone] [employer] No Information 2 Rebecca Lema. [address] [place] [address], [facility] [address], [place], [id number] , [place]. [phone] Referring Provider: Torey Fernandez MD, [address] [place] [address], [place], [address] . tel:[phone] [facility], [address] [address], [place], [place], [id number], [place] [phone] [facility] Bile leak 2 Mendoza Castillo. [address] [facility], [place], [place], [id number] , [place]. [phone] [facility], [address] [address], [place], [place], [id number], [place] [phone] [facility] No Information Sanjeev Castillo. [address] [facility], [address], [place], [id number] , [place]. [phone] Referring Provider: Jonathan Rosado, [address] [facility] [address], [place], [address] . tel:[phone] Family History Family Member Type Diagnosis Age [...] Registry Payers Payer name Insurance type Covered constitution party ID Gabriele tyson(s) [facility] [id number] Social History Type Description Quantity Date Captured [...]
--- OUTSIDE RECORDS SUMMARY | 2023-12-29 00:38 | XMS_ITS | Continuity of Care Document ---
Author Organization [facility] Address [address] [facility] [place] [address] Care Team Providers Care Lead Person Name Role Phone [facility] Unavailable Unav ailable Procedures Procedure Date Facet [...] Diagnoses Date Provider Providers Copied on Encounter [facility], [address] [place], [place], [id number], [facility] No Information [facility]. [address] [facility] [place], [id number], [place]. tel:[phone] Referring Provider: Woody Michelle, [address] [facility] [place], [address]. tel:[phone] [facility], [address] [place], [place], [id number], [facility] No Information [facility]. [address] [facility] [place], [id number], [place]. tel:[phone] Referring Provider: Woody Ahn, [address] [place], [address]. tel:[phone] Family History Family Member Type Diagnosis Age At Onset No Information Payers Payer name Insurance type Covered green party ID Gabriele tyson(s) [facility] [id number] Social History Type Description Quantity Date Captured [...]
--- OUTSIDE RECORDS SUMMARY | 2023-12-29 00:39 | XMS_ITS | Encounter Summary ---
Author Organization [facility] Address [address] [place] [address] Care Team Providers Care Wood Box Maker Name Role Phone Nikita Gamble MD Primary Care Provider Encounter Details Date Type Department Care Team (Late st Contact Info) Description 11/22/2023 3:40 PM CDT [facility] [address] [facility]. [place], [place] [id number] Carol Phillips MD [address] [place] [address] Endometrial polyp (Primary Dx); PMB (postmenopausal bleeding); [...] Phillips MD - 11/22/2023 3:40 PM CDT BAG GRADER Visit Video converted to phone due to [...] Helped but didn't make a big difference. Burdine a tearing sensation every time she was [...] Exam performed on: 10/17/2023 Referring provider: Candice Cotaes MD Referring clinic: [facility] Clinical indications: Postmenopausal bleeding Manager Cardiology(s) initials: The pelvic organs are imaged using: [...] up with referring provider. Recommend consultation with clinical nurse for hysteroscopy. Patient requested expedited surgery scheduling therefore surgical orders were placed. OB Hx: OB History Para Term AB Living 0 0 0 0 0 0 SAB IAB Ectopic Multiple Live Births 0 0 0 0 0 GRAIN BROKER Hx: No LMP recorded. Patient is postmenopausal. [...] 100 Tab 3 Blood Glucose Monitoring Suppl ([employer] CONTOUR MONITOR) W/DEVICE KIT kit As instructed 1 Each 0 blood glucose ([employer] CONTOUR TEST) strip 4 x daily. Pharmacy [...] (10 mg) by mouth every 8 hours. Bantam Live G7 Sensor continuous blood glucose device Use [...] by mouth two times a day. rizatriptan (MAXALT-DIGITAL PROGRAM MANAGER) 10 MG disintegrating tablet Take 1 Tablet [...] to have preop close to home in [place]. Consent to be signed day of surgery. [...] Contact Info) Description 12/29/2023 8:30 AM CDT [facility] [address] [place] [address] Candice Coates MD [address] [address] documented as of this encounter Visit Diagnoses Diagnosis Endometrial polyp- Primary Polyp of corpus uteri PMB (postmenopausal bleeding) Postmenopausal bleeding Genitourinary syndrome of menopause documented in this encounter Additional Health Concerns Infection Onset Date Last Indicated Resolved Time MRSA Comment:Beronica 12-29-14, 01/06/16 12/30/2014 12/30/2014 documented as of this encounter Care Teams Wood Box Maker Relationship Specialty Start Date End Date Nikita Gamble MD [address] [place] [address] PCP - General Family Practice 06/23/23 documented as of this encounter
--- OUTSIDE RECORDS SUMMARY | 2023-12-29 00:39 | XMS_ITS | Encounter Summary ---
Author Organization [facility] Address [address] [place] [address] Care Team Providers Care Manager Retention Name Role Phone Nikita Gamble MD Primary Care Provider Encounter Details Date Type Department Care Team (Late st Contact Info) Description 04/28/[address] [facility] Radiology [address] [place] [address] Radiology, Provider MRI SAFETY SHEET AND COMPATIBILITY [...] Telemedicine [facility] [address] [place] [address] Candice Coates MD [address] [id number] documented as of this encounter Visit Diagnoses Not on filedocumented in this encounter Additional Health Concerns Infection Onset Date Last Indicated Resolved Time MRSA Comment:Beronica 10-4-15, 01/06/16 12/30/2014 12/30/2014 documented as of this encounter Care Teams Manager Retention Relationship Specialty Start Date End Date Nikita Gamble MD [address] [place] [address] PCP - General Family Practice 06/23/23 documented as of this encounter
--- OUTSIDE RECORDS SUMMARY | 2023-12-29 00:39 | XMS_ITS | Encounter Summary ---
Author Organization [facility] Address [address] [place] [address] Care Team Providers Care Roentgenology Teacher Name Role Phone Nikita Gamble MD Primary Care Provider [phone] Reason for Referral * Procedure/Equipment (Routine) - Incomplete Specialty Diagnoses / Procedures Referred By Contac t Referred To Contact Diagnoses Postmenopausal bleeding Procedures Case Request OR - Gynecologic Surg: HYSTEROSCOPY WITH MYOSURE, polypectomy Carol Phillips MD [address] [place] [address] Referral ID Status Reason Start Date Expiration Date V isits Requested Visits Authorized [id number] Incomplete 10/17/2023 01/15/2025 1 1 Reason for Visit * Procedure/Equipment (Routine) - Incomplete Specialty Diagnoses / Procedures Referred By Contac t Referred To Contact Diagnoses Postmenopausal bleeding Procedures OBGYN Pelvic/Emotionally Impaired [place] [address] [place] [address] Referral ID Status Reason Start Date Expiration Date V isits Requested Visits Authorized [id number] Incomplete 10/17/2023 01/15/2025 1 1 Encounter Details Date Type Department Care Team ([facility] Contact Info) Description 10/17/2023 1:00 PM CDT Ancillary Procedure [facility] OB Ultrasound [address] [place] [address] [place] [address] [place] [address] Postmenopausal bleeding (Primary Dx) Social History Tobacco [...] Contact Info) Description 12/29/2023 8:30 AM CDT [facility] UroGynecology [address] [place] [address] Candice Coates MD [address] [place] [address] documented as of this encounter Procedures Procedure Name Priority Date/Time Associated Diagnosis Comments OBGYN PELVIC/SPRING TESTER ULTRASOUND Routine 10/17/2023 1:39 PM CDT Postmenopausal bleeding documented in this encounter Results * (ABNORMAL) OBGYN Pelvic/Emotionally Impaired Teacher Ultrasound (10/17/2023 1:39 PM CDT) Uterus AP Diameter (Height) 2.60 cm EXTERNAL RESULTS Uterus Longitudinal Diameter (Length) 6.40 cm EXTERNAL RESULTS Uterus Transverse Diameter (Width) 3.50 cm EXTERNAL RESULTS Uterus Volume 30.49 ml GREENHOUSE FLORIST AL RESULTS Endometrium Thickness 6.10 mm EXTERNAL [...] from the original result was not included. SPRING TESTER Ultrasound Exam performed on: ??10/17/2023 Referring provider: Candice Coates MD Referring clinic: [facility] Clinical indications: Postmenopausal bleeding Manufacturer Agent(s) initials: The pelvic organs are imaged using: [...] up with referring provider. ??Recommend consultation with vrt mechanic for hysteroscopy. ??Patient requested expedited surgery scheduling therefore surgical orders were placed. ?? Carol Phillips MD Candice Coates MD RAD documented in this encounter Visit Diagnoses Diagnosis Postmenopausal bleeding- Primary documented in this encounter Additional Health Concerns Infection Onset Date Last Indicated Resolved Time MRSA Comment:Justinelena 12-29-14, 01/06/16 12/30/2014 12/30/2014 documented as of this encounter Care Teams Roentgenology Teacher Relationship Specialty Start Date End Date Nikita Gamble MD [address] [place] [address] PCP - General Family Practice 06/23/23 documented as of this encounter
--- OUTSIDE RECORDS SUMMARY | 2023-12-29 00:39 | XMS_ITS | Encounter Summary ---
Author Organization [facility] Address [address] [place] [address] Care Team Providers Care County Administrator Name Role Phone Nikita Gamble MD Primary Care Provider Encounter Details Date Type Department Care Team (Late st Contact Info) Description 12/07/2023 Telephone Specialty Center [facility] [address] [place] [address]. [place], [place] [phone] Logan Parra PA-C [address] [place] [address] Social History Tobacco Use Types Packs/Day Years [...] notes and lab attached). Faxed back at [phone]. Placed for scanning. Alex Villalba RN 12/07/2023 2:00 PM documented in this encounter Plan of Treatment Upcoming Encounters Date Type Department Care Team (Late st Contact Info) Description 12/29/2023 8:30 AM CDT [facility] UroGynecology [address] [place] [address] Candice Coates MD [address] [facility] [address] [place] [address] documented as of this encounter Visit Diagnoses Not on filedocumented in this encounter Additional Health Concerns Infection Onset Date Last Indicated Resolved Time MRSA Comment:Beronica 12-29-14, 01/06/16 12/30/2014 12/30/2014 documented as of this encounter Care Teams County Administrator Relationship Specialty Start Date End Date Nikita Gamble MD [address] [place] [address] PCP - General Family Practice 06/23/23 documented as of this encounter
--- OUTSIDE RECORDS SUMMARY | 2023-12-29 00:39 | XMS_ITS | Encounter Summary ---
Author Organization [facility] Address [address] [place] [address] Care Team Providers Care Wood Cabinet Finisher Name Role Phone Nikita Gamble MD Primary Care Provider [phone] Encounter Details Date Type Department Care Team (Late Contact Info) Description 10/27/2023 3:00 PM CDT Lab Visit Specialty Center Laboratory 401 [facility]. [place], [place] [phone] Routine medical exam Social History Tobacco Use [...] [facility] [address] [place] [address] Candice Coates MD [address] [address] documented as of this encounter Procedures Procedure Name Priority Date/Time Associated Diagnosis Comments DNA ANALYSIS DISCRETE SEQUENCE VARIATION PANEL (BLOOD) Routine 10/27/2023 3:14 PM CDT Routine medical exam documented in this encounter Results * DNA Analysis Discrete Sequence Variation Panel (Blood) (Initial) (10/27/2023 3:14 PM CDT) Date Sample Received at Testing Lab 10/29/2023 12/28/2023 4:09 PM CDT [place] Familial Hypercholesterolemia Not Detected 12/28/2023 4:09 PM CDT [place] Comment: Pathogenic variant not detected. Genes Tested: BRCA1, BRCA2, MLH1, MSH2, MSH6, PMS2, EPCAM, APOB, LDLR, LDLRAP1, PCSK9 Test Description: [facility] [facility] Tier One Population Screen is a screening [...] This test was developed and validated by [facility]. This test has not been cleared or approved by the [place] Food and Drug Administration (FDA). The [facility] laboratory is accredited by the College of [employer]ron[employer] Pathologists (CAP) and certified under the Clinical Laboratory Improvement Amendments (CLIA #: [id number]) to perform high-complexity clinical tests. This test is used for clinical purposes. It should not be regarded as investigational or for research. Methods and Limitations: Extracted DNA is enriched for targeted regions and then sequenced using the [employer] [facility] Exome+ (R) assay on an Illumina DNA sequencing system. Data is then aligned to a modified version of GRCh38 and all genes are analyzed using the MIREYA transcript and MIREYA Plus Clinical transcript, when available. Small variant calling is completed using a customized version of [employer]'s [employer].meq software, augmented by a proprietary small variant [...] is based upon guidelines published by the [place] College [employer] Medical Genetics and Genomics (ACMG) and the Association for Molecular Pathology (AMP) or their modification by ClinGen Variant Curation Expert Panels when available. Interpretation is limited to the transcripts indicated on the report and +/- 10 bp into intronic regions, except as noted below. [facility] [facility] variant classifications include pathogenic, likely pathogenic, variant [...] the promoter. Sequencing Location: Sequencing done at [facility] [address] [place] [address], [address] [address] ([facility]# [id number]) Designation: Venkata Ma, PhD, [facility] Email: [email or web address] Hereditary Breast and Ovarian Cancer Syndrome Not Detected 12/28/2023 4:09 PM CDT [facility] Comment:Pathogenic variant n ot detected. Pleitez Syndrome Not Detected 12/28/2023 4:09 PM CDT [facility] Comment:Pathogenic variant n ot detected. Blood or Saliva VENOUS BLOOD SPECIMEN / Unknown 10/27/2023 3:14 PM CDT 10/27/2023 3:14 PM CDT Everardo Go MD LAB_1 [facility] [address] [facility] [address] [place] [address] documented in this encounter Visit Diagnoses Diagnosis Routine medical exam Routine general medical examination at a health care facility documented in this encounter Additional Health Concerns Infection Onset Date Last Indicated Resolved Time MRSA Comment:Beronica 12-29-14, 01/06/16 12/30/2014 12/30/2014 documented as of this encounter Care Teams Wood Cabinet Finisher Relationship Specialty Start Date End Date Nikita Gamble MD [address] [place] [address] PCP - General Family Practice 06/23/23 documented as of this encounter
--- OUTSIDE RECORDS SUMMARY | 2023-12-29 00:39 | XMS_ITS | Encounter Summary ---
Author Organization [facility] Address [address] [place] [address] Care Team Providers Care Head Holder Name Role Phone Nikita Gamble MD Primary Care Provider [phone] Reason for Visit * Auth/Cert (Routine) Specialty Diagnoses / Procedures Referred By Contac t Referred To Contact Diagnoses Postmenopausal bleeding . Procedures HYSTEROSCOPY WITH MYOSURE, polypectomy Referral ID Status Reason Start Date Expiration Date Visits Re quested Visits Authorized [id number] 1 1 Encounter Details Date Type Department Care Team (Late st Contact Info) Description 12/14/2023 10:00 AM CDT - 12/14/2023 11:15 AM CDT Surgery Operating Room [address] [place] [phone] Carol Phillips MD [address] [place] [address] HYSTEROSCOPY WITH TRUCLEAR, polypectomy, PAP SMEAR AND [...] is after hours call the Careline at [phone]. [facility] Surgery: Please contact your [...] Tab 3 04/30/2015 Blood Glucose Monitoring Suppl ([employer] CONTOUR MONITOR) W/DEVICE KIT kit As instructed [...] 1 diabetes mellitus with diabetic neuropathy, unspecified ([facility]) Use for continuous glucose monitoring. [...] by mouth two times a day. rizatriptan (MAXALT-REFERRAL MANAGEMENT LIAISON) 10 MG disintegrating tablet Take 1 Tablet [...] Contact Info) Description 12/29/2023 8:30 AM CDT [facility] UroGynecology 26[address] [place] [address] Candice Coates MD [address] [phone] Pending Results Name Type Priority Associated Diagnoses [...] AM CDT) Case Report Surgical Pathology ?Case: [id number] ? Authorizing Provider: ??Carol Phillips MD ?Collected: ? 12/14/2023 1104 ? Ordering Location: ? Operating Room ?Received: ?12/14/2023 1132 ? Pathologist: ? Joann Mckeon MD ? Specimens: ?? A) - Labia, left, Left superior labial biopsy ? B) - Vulva, Left vestibule ? C) - Uterus, Endometrial currettings ? 12/22/2023 1:37 PM [facility] FINAL DIAGNOSIS A. Skin, Labia, left [...] Clinical correlation is recommended. 12/22/2023 1:37 PM [facility] Clinical Information Postmenopausal bleeding 12/22/2023 1:37 PM [facility] Microscopic Description A. Microscopic examination including multiple deeper recut sections is performed. B/C. Microscopic examination is performed. 12/22/2023 1:37 PM [facility] Special Stains The stain controls have been reviewed and stain appropriately. 12/22/2023 1:37 PM [facility] Gross Description A: The specimen is [...] in 1 cassette. TK 12/22/2023 1:37 PM [facility] Embedded Images 12/22/2023 1:37 PM [facility] Tissue GENITAL LABIUM STRUCTURE / Unknown 12/14/2023 11:04 AM CDT 12/14/2023 11:32 AM CDT Tissue specimen (specimen) VULVAL STRUCTURE / Unknown 12/14/2023 11:09 AM CDT 12/14/2023 11:32 AM CDT Tissue specimen (specimen) UTERINE STRUCTURE / Unknown 12/14/2023 11:16 AM CDT 12/14/2023 11:32 AM CDT Carol Phillips MD LAB PATHOLOGY Performing Organization Address City/[facility]/ZIP Co de Phone Number [address] * Glucose, Whole Blood POCT (12/14/2023 9:03 AM CDT) Glucose, Whole Blood 174 70 - 180 mg/dL 12/14/2023 9:05 AM [facility] [facility] Performing Location [facility] PSCU 12/14/2023 9:05 AM [facility] Blood 12/14/2023 9:03 AM CDT 12/14/2023 9:05 AM CDT Carol Phillips MD LAB_1 Performing Organization Address [facility] Co de Phone Number [address] documented in this encounter Visit Diagnoses [...] (SUBLIMAZE) injection 25-50 mcg 25-50 mcg, Intravenous, [id number], Pain, Starting on Tue12/14/23 at 1105, Until [...] (NORMODYNE) injection 5 mg 5 mg, Intravenous, [id number], Blood Pressure >, Hypertension SBP greater than [...] (SUBLIMAZE) injection 25-50 mcg 25-50 mcg, Intravenous, [id number], Pain, Starting on Tue12/14/23 at 1105, Until [...] (NORMODYNE) injection 5 mg 5 mg, Intravenous, [id number], Blood Pressure >, Hypertension SBP greater than [...] documented as of this encounter Care Teams Head Holder Relationship Specialty Start Date End Date Nikita Gamble MD [address] [place] [address] PCP - General Family Practice 06/23/23 documented as of this encounter
--- OUTSIDE RECORDS SUMMARY | 2023-12-29 00:39 | XMS_ITS | Encounter Summary ---
Author Organization [facility] Address [address] [place] [address] Care Team Providers Care Food Processing Chemist Name Role Phone Nikita Gamble MD Primary Care Provider [phone] Reason for Visit * Reason Comments Surgery Scheduling Encounter Details Date Type Department Care Team ([facility] st Contact Info) Description 10/21/2023 [facility] Obstetrics and Gynecology [address] [place] [address]. [place], [place] [phone] Carol Phillips MD [address] [place] [phone] Surgery Scheduling Social History Tobacco Use Types [...] 10/21/2023 12:49 PM CDT Surgery scheduled at [facility] on 12/14/23 for HYSTEROSCOPY WITH MYOSURE, polypectomy. Pre-op scheduled. Brochure sent via [employer]. Merlene Cornell 10/21/2023, 12:50 PM. documented in this encounter Plan of Treatment Upcoming Encounters Date Type Department Care Team (Late st Contact Info) Description 12/29/2023 8:30 AM CDT [facility] UroGynecology [address] [place] [address] Candice Coates MD 2635 [facility] 160 [place] [address] documented as of this encounter Visit Diagnoses Not on filedocumented in this encounter Additional Health Concerns Infection Onset Date Last Indicated Resolved Time MRSA Comment:Beronica 12-29-14, 01/06/16 12/30/2014 12/30/2014 documented as of this encounter Care Teams Food Processing Chemist Relationship Specialty Start Date End Date Nikita Gamble MD [address] [place] [address] PCP - General Family Practice 06/23/23 documented as of this encounter
--- OUTSIDE RECORDS SUMMARY | 2023-12-29 00:39 | XMS_ITS | Encounter Summary ---
Author Organization [facility] Address [address] [place] [address] Care Team Providers Care Undertaker Helper Name Role Phone Nikita Gamble MD Primary Care Provider Reason for Visit * Auth/Cert (Routine) Specialty Diagnoses / Procedures Referred By Contac t Referred To Contact Diagnoses Postmenopausal bleeding . Procedures HYSTEROSCOPY WITH MYOSURE, polypectomy Referral ID Status Reason Start Date Expiration Date Visits Re quested Visits Authorized [id number] 1 1 Encounter Details Date Type Department Care Team (Late st Contact Info) Description 12/14/2023 8:02 AM CDT - 12/14/2023 12:46 PM CDT Hospital Encounter [facility] Operating Room [address] [place] [address] Carol Phillips MD [address] [place] [address] Postmenopausal bleeding Discharge Disposition: Home Social History [...] is after hours call the Careline at [phone]. [facility] Surgery: Please contact your clinic during [...] Tab 3 04/30/2015 Blood Glucose Monitoring Suppl ([employer] CONTOUR MONITOR) W/DEVICE KIT kit As instructed [...] 1 diabetes mellitus with diabetic neuropathy, unspecified ([facility]) Use for continuous glucose monitoring. Change sensor [...] Insulin-Dependent Diabetes 15 mL 11 06/11/2015 lancets ([employer] MICROLET LANCETS) Use as directed. Pharmacy dispense [...] by mouth two times a day. rizatriptan (MAXALT-ANESTHESIOLOGY TECH) 10 MG disintegrating tablet Take 1 Tablet [...] Sloan RN - 12/14/2023 11:32 AM CDT [facility] Progress Note Patient Name: Marnie Duvall Date of : 1965 Fluid deficit 570cc post hysteroscopy per Dr. Phillips. Pina Sloan, RN 12/14/2023 at 11:32 AM documented in this encounter Plan of Treatment Upcoming Encounters Date Type Department Care Team (Late st Contact Info) Description 12/29/2023 8:30 AM CDT [facility] UroGynecology [address] [place] [address] Candice Coates MD 2635 [facility] [address] [place] [address] Pending Results Name Type Priority Associated Diagnoses [...] AM CDT) Case Report Surgical Pathology ?Case: [id number] ? Authorizing Provider: ??Carol Phillips MD ?Collected: ? 12/14/2023 1104 ? Ordering Location: ? [facility] Operating Room ?Received: ?12/14/2023 1132 ? Pathologist: ? Joann Mckeon MD ? Specimens: ?? A) - Labia, left, Left superior labial biopsy ? B) - Vulva, Left vestibule ? C) - Uterus, Endometrial currettings ? 12/22/2023 1:37 PM [facility] FINAL DIAGNOSIS A. Skin, Labia, left superior, [...] Clinical correlation is recommended. 12/22/2023 1:37 PM [facility] Clinical Information Postmenopausal bleeding 12/22/2023 1:37 PM [facility] Microscopic Description A. Microscopic examination including multiple deeper recut sections is performed. B/C. Microscopic examination is performed. 12/22/2023 1:37 PM [facility] Special Stains The stain controls have been reviewed and stain appropriately. 12/22/2023 1:37 PM [facility] Gross Description A: The specimen is received [...] in 1 cassette. TK 12/22/2023 1:37 PM [facility] Embedded Images 12/22/2023 1:37 PM [facility] Tissue GENITAL LABIUM STRUCTURE / Unknown 12/14/2023 11:04 AM CDT 12/14/2023 11:32 AM CDT Tissue specimen (specimen) VULVAL STRUCTURE / Unknown 12/14/2023 11:09 AM CDT 12/14/2023 11:32 AM CDT Tissue specimen (specimen) UTERINE STRUCTURE / Unknown 12/14/2023 11:16 AM CDT 12/14/2023 11:32 AM CDT Carol Phillips MD LAB PATHOLOGY [address] * Glucose, Whole Blood POCT (12/14/2023 9:03 AM CDT) Glucose, Whole Blood 174 70 - 180 mg/dL 12/14/2023 9:05 AM CDT [facility] Performing Location [facility] PSCU 12/14/2023 9:05 AM CDT [facility] Blood 12/14/2023 9:03 AM CDT 12/14/2023 9:05 AM CDT Carol Phillips MD LAB_1 Performing Organization Address [facility] Co de Phone Number [address] documented in this encounter Visit Diagnoses [...] (SUBLIMAZE) injection 25-50 mcg 25-50 mcg, Intravenous, [id number], Pain, Starting on Tue12/14/23 at 1105, Until [...] (NORMODYNE) injection 5 mg 5 mg, Intravenous, [id number], Blood Pressure >, Hypertension SBP greater than [...] (SUBLIMAZE) injection 25-50 mcg 25-50 mcg, Intravenous, [id number], Pain, Starting on Tue12/14/23 at 1105, Until [...] (NORMODYNE) injection 5 mg 5 mg, Intravenous, [id number], Blood Pressure >, Hypertension SBP greater than [...] documented as of this encounter Care Teams Undertaker Helper Relationship Specialty Start Date End Date Nikita Gamble MD [address] [place] [address] PCP - General Family Practice 06/23/23 documented as of this encounter
--- OUTSIDE RECORDS SUMMARY | 2023-12-29 00:39 | XMS_ITS | Encounter Summary ---
Author Organization [facility] Address [address] [address] Care Team Providers Care Buildings And Grounds Supervisor Name Role Phone Nikita Gamble MD Primary Care Provider [phone] Encounter Details Date Type Department Care Team (Late Contact Info) Description 08/31/2023 E-Visit [facility] [address] [address] Mychart, [place] [address] Social History Tobacco Use Types Packs/Day Years [...] [facility] [address] [place] [address] Candice Coates MD [address] [address] documented as of this encounter Visit Diagnoses Not on filedocumented in this encounter Additional Health Concerns Infection Onset Date Last Indicated Resolved Time MRSA Comment:Justinelena -4-15, 01/06/16 12/30/2014 12/30/2014 documented as of this encounter Care Teams Buildings And Grounds Supervisor Relationship Specialty Start Date End Date Nikita Gamble MD [address] [place] [address] PCP - General Family Practice 06/23/23 documented as of this encounter
--- OUTSIDE RECORDS SUMMARY | 2023-12-29 00:39 | XMS_ITS | Encounter Summary ---
Author Organization [facility] Address [address] [place] [address] Care Team Providers Care Phosphoric Acid Supervisor Name Role Phone Nikita Gamble MD Primary Care Provider Encounter Details Date Type Department Care Team (Late st Contact Info) Description 10/07/2023 Telephone Specialty Center 435 Urology [facility] [address] [facility] [place], [place] [phone] Candice Coates MD [facility] [address] [place], [place] [phone] Social History Tobacco Use Types Packs/Day Years [...] wrong address for appt and came to [address] [place] [address] and was informed she was at the wrong clinic after trying to find where Dr. Gallego office was. Calling to see if theres anyway to be seen later today? She apologized profusely with [place] team and expressed flustered due to the mix up and the road construction. Per Patient chart, [email or web address]. Please contact patient and advise Khushbu Newman 10/07/2023, 10:31 AM documented in this encounter Plan of Treatment Upcoming Encounters Date Type Department Care Team (Late st Contact Info) Description 12/29/2023 8:30 AM CDT Counts Include [facility] UroGynecology [address] [place] [address] Candice Coates MD [facility] [address] [place] [address] documented as of this encounter Visit Diagnoses Not on filedocumented in this encounter Additional Health Concerns Infection Onset Date Last Indicated Resolved Time MRSA Comment:Beronica 10-4-15, 01/06/16 12/30/2014 12/30/2014 documented as of this encounter Care Teams Phosphoric Acid Supervisor Relationship Specialty Start Date End Date Nikita Gamble MD [address] [place] [address] PCP - General Family Practice 06/23/23 documented as of this encounter
--- OUTSIDE RECORDS SUMMARY | 2023-12-29 00:39 | XMS_ITS | Encounter Summary ---
Author Organization [email or web address] Address [address] [place] [address] Care Team Providers Care Heating And Cooling Technician Name Role Phone Nikita Gamble MD Primary Care Provider Reason for Referral * Procedure/Equipment (Routine) - Incomplete Specialty Diagnoses / Procedures Referred By Contac t Referred To Contact Diagnoses Postmenopausal bleeding Procedures OBGYN Pelvic/Bleach Tester Ultrasound Candice Coates MD [address] [place] [address] Referral ID Status Reason Start Date Expiration Date V isits Requested Visits Authorized [id number] Incomplete 10/17/2023 01/15/2025 1 1 Reason for Visit * Reason Comments CONSULT UUI, several years, worsening. Hx observed rectocele, poss cystocele. Endorses GAURAV, nocturia, incomplete bladder emptying, BM concerns. Denies baseline urgency/frequency, UI w/o sensation, vaginal bulging. Encounter Details Date Type Department Care Team (Late st Contact Info) Description 10/17/2023 10:00 AM CDT [facility] [address] [place] [address] Candice Coates MD [address] [place] [address] Postmenopausal bleeding (Primary Dx); OAB (overactive [...] Patient Instructions * Patient Instructions* Niurka Cook, REGULATORY SCIENTIST - 10/17/2023 10:00 AM CDT URODYNAMIC TESTING INFORMATION AND PREPARATION Your physician has ordered Urodynamic testing in order to evaluate your urinary function. This testing is performed at the Urology clinic at [address] [place] [address]. During this test we will try to [...] Wednesdays. Please contact the Urology department at [phone] to schedule your Urodynamics appointment and a [...] testing (also called cystometry) please go to [email or web address] and type in the search box ???urodynamics?? . If there are special needs that you have or questions you need answered, please contact [phone]. INSTRUCTIONS ON HOW TO COMPLETE YOUR BLADDER [...] available to your physician and the urodynamics manufacturing process technician performing theevaluation. Thank you for your cooperation Bladder Diary Date: Time Drinks Urine Accidental Leaks Did you feel an urge to go? What were you doing at the time of leaking? What kind? (water, pop, milk, etc) How Much? How many times? How much (oz, cc, or ml)? How much? Putney one Putney one (sneezing, exercising, having sex, lifting, etc.) [...] How many times? How much? How much? Putney one Putney one (sneezing, exercising, having sex, lifting, etc.) [...] Sm med lg Yes No Please call [phone] for follow up and new patient scheduling for [facility] Urogynecology. Instructions Your follow up appointment will be scheduled with one of the Urogynecology care team members. This may be one of our physician assistants. They are always in direct communication with your physician who remains responsible for your Urogynecology care at [facility]. Lab or Imaging Results If labs were ordered, you will receive the results via your [employer]) account if you have one. Results are automatically released to your [employer]) account once available. This means that you may see your results before we have had a chance to review them. After the results become available, comments from our team are typically posted to your [employer]) account within 2-5 business days. We usually wait until all or nearly all of the lab results have returned and make a onetime comment rather than comment on each lab result individually. Please donot send a Table8 message requesting follow up/advice on labs or [...] you. If you do not have a [employer]Poll[employer] account, results typically arrive by mail within [...] you! Get Cost of Care Estimates - [phone] The health insurance marketplace has changed dramatically in the last few years. Our cost of care service will provide estimates over the phone for treatments or procedures billed through [facility]. To receive a cost estimate, simply call [phone] during regular business hours. If you have insurance coverage, you will need to verify your policy of coverage with your health plan by calling the number located on the back of your insurance card and talking to member services. documented in this encounter Progress Notes * Candice Coates MD - 10/17/2023 10:00 AM CDT [facility] Urogynecology New Patient Consult Marnie Duvall : [...] seen at another urogynecologist Never seen at [facility] urogynecology but was referred Prior treatments: oxybutynin [...] tablet pregabalin (LYRICA) 300 MG capsule rizatriptan (MAXALT-WAREHOUSE CLERK) 10 MG disintegrating tablet topiramate (TOPAMAX) 100 [...] Orders ICD-10-CM 1. Postmenopausal bleeding N95.0 OBGYN Pelvic/Bleach Tester Ultrasound 2. OAB (overactive bladder) N32.81 Urinalysis [...] in the bladder today Candice Coates MD [facility] Urogynecology/Female Pelvic Medicine and Reconstructive Surgery This note contains medical terminology which is meant for communication between health care physicians and providers. Please note that vocabulary/phrasing/abbreviations may not carry the same definitions as they would in normal conversational speech. This note was created using medical dictation software. Please excuse any typographical errors in baked and graphite inspector. documented in this encounter Plan of Treatment Upcoming Encounters Date Type Department Care Team (Late st Contact Info) Description 12/29/2023 8:30 AM CDT [facility] UroGynecology [address] [place] [id number] Candice Coates MD [address] [place] [address] documented as of this encounter Procedures Procedure Name Priority Date/Time Associated Diagnosis Comments URINALYSIS ROUTINE, MICRO/CULTURE IF POS Routine 10/17/2023 11:24 AM CDT OAB (overactive bladder) Urge incontinence documented in this encounter Results * (ABNORMAL) OBGYN Pelvic/Bleach Tester Ultrasound (10/17/2023 1:39 PM CDT) Uterus AP Diameter (Height) 2.60 cm EXTERNAL RESULTS Uterus Longitudinal Diameter (Length) 6.40 cm EXTERNAL RESULTS Uterus Transverse Diameter (Width) 3.50 cm EXTERNAL RESULTS Uterus Volume 30.49 ml WINDOWS DESKTOP SUPPORT AL RESULTS Endometrium Thickness 6.10 mm EXTERNAL [...] from the original result was not included. PATENT EXAMINER Ultrasound Exam performed on: ??10/17/2023 Referring provider: Candice Coates MD Referring clinic: [facility] UR[facility]YNECOLOGY Clinical indications: Postmenopausal bleeding Aegis Console Operator Track(s) initials: The pelvic organs are imaged using: [...] up with referring provider. ??Recommend consultation with nylon machine operator for hysteroscopy. ??Patient requested expedited surgery scheduling therefore surgical orders were placed. ?? Carol Phillips MD Candice Coates MD RAD US * (ABNORMAL) Urinalysis Routine, Micro/Culture if Pos: Straight catheter (10/17/2023 11:24 AM CDT) Urine Culture Comment Urinalysis results do not meet criteria for urine culture reflex. 10/17/2023 11:41 AM [facility] Urine Color Yellow 10/17/2023 11:41 AM [facility] Urine Clarity Clear Clear 10/17/2023 11:41 AM [facility] Specific [place], Urine <=1.005(A) 1.005 - 1.030 10/17/2023 11:41 AM [facility] PH Urine 6.0 5.0 - 8.0 10/17/2023 11:41 AM [facility] Protein, Urine Qual (mg/dL) Negative Neg/Trace 10/17/2023 11:41 AM [facility] Glucose Urine Qual (mg/dL) Negative Negative 10/17/2023 11:41 AM [facility] Ketones, Urine (mg/dL) Negative Negative 10/17/2023 11:41 AM [facility] Urobilinogen, Urine (EU/dL) 0.2 <2.0 10/17/2023 11:41 AM [facility] Bilirubin Urine Negative Negative 10/17/2023 11:41 AM [facility] Blood, Urine Negative Neg/Trace 10/17/2023 11:41 AM [facility] Nitrite Urine Negative Negative 10/17/2023 11:41 AM [facility] Leukocyte Est. Negative Negative 10/17/2023 11:41 AM [facility] Urine Source Straight catheter 10/17/2023 11:41 AM [facility] Urine (Straight catheter) Non-blood Collection / Unknown 10/17/2023 11:24 AM CDT 10/17/2023 11:39 AM CDT Candice Coates MD LAB_1 [facility] [address] documented in this encounter Visit Diagnoses [...] documented as of this encounter Care Teams Heating And Cooling Technician Relationship Specialty Start Date End Date Nikita Gamble MD [address] [place] [address] PCP - General Family Practice 06/23/23 documented as of this encounter
--- OUTSIDE RECORDS SUMMARY | 2023-12-29 00:39 | XMS_ITS | Encounter Summary ---
Author Organization [facility] Address [address] [place] [address] Care Team Providers Care Combined Rail Operator Name Role Phone Nikita Gamble MD Primary Care Provider Reason for Visit * Reason Onset Date Comments Urodynamics 12/01/2023 Urodynamics 12/28/2023 Encounter Details Date Type Department Care Team (Latest Contact Info) Description 12/01/2023 8:15 AM CDT Office Visit [facility] [address] [place] [address] Mixed stress and urge urinary incontinence (Primary [...] (Ifsuffering from incomplete emptying, please ask the behavioral modification assistant about specific directions). There are generally no adverse of long lasting side effects from Urodynamics testing. You may, however, experience a burning sensation of pass a small amount of blood when urinating for the next 24 to 48 hours. This is considered normal following catheterization. Please contact Dr. Candice Yap at [phone] if any problems should arise or you [...] Was this typical flow for the patient? [place] able to go, slight urge CMG Patient [...] uroflow Complex Cystometrogram: Performed using a #8 Estonian dual lumen urethral catheter with simultaneous rectal [...] of 156c and cough with pressure of [id number] and volume of 156cc Prolapse reduction stress test was not performed. Urethral Pressure Profile: This was performed using a #8 Estonian urethral catheter with slow constant pull and [...] well. Normal post void residual Recommendations: A/P: Marnie Duvall is a 58 y.o. F with mixed urinary incontinence. Both stress and detrusor overactivity incontinence were identified on testing. Normal voiding phase, normal capacity and normal sensation. ICD-10-CM 1. Mixed stress and urge urinary incontinence N39.46 17916 Cystometrogram W/Lubrication Supervisor&Up 61549 Emg Anal/Ureth Sphincter-Not Needle 84821 Intraabdominal Pressure Test documented in this encounter Plan of Treatment Upcoming Encounters Date Type Department Care Team (Late st Contact Info) Description 12/29/2023 8:30 AM CDT [facility] [address] [place] [address] Candice Yap MD [address] [place] [address] documented as of this encounter Visit Diagnoses Diagnosis Mixed stress and urge urinary incontinence- Primary Mixed incontinence urge and stress (male)(female) documented in this encounter Additional Health Concerns Infection Onset Date Last Indicated Resolved Time MRSA Comment:Beronica 12-29-14, 01/06/16 12/30/2014 12/30/2014 documented as of this encounter Care Teams Combined Rail Operator Relationship Specialty Start Date End Date Nikita Gamble MD [address] [place] [address] PCP - General Family Practice 06/23/23 documented as of this encounter
--- OUTSIDE RECORDS SUMMARY | 2023-12-29 00:40 | XMS_ITS | Referral Summary ---
Author Organization [place] Address [address] [place] [address]. [place] [address] Care Team Providers Care Water Resource Engineering Specialist Name Role Phone Jocelyn Davidson RD Unavailable [phone] Nikita Gamble MD Primary Care Provider [phone] Mikki Blevins MD Unavailable [phone] Allergies No known active allergies Medications [...] hours Using T:Connect: Yes Dexcom Sharing Code: [id number] 02/21/2019 Active blood glucose (ACCU-CHEK RADHA PLUS) [...] Assigned at Female 03/04/2020 12:33 PM DIRECTOR GLOBAL DEVELOPMENT Gender Identity Female 03/04/2020 12:33 PM DIRECTOR GLOBAL DEVELOPMENT Sexual Orientation Straight 03/04/2020 12 :33 PM DIRECTOR GLOBAL DEVELOPMENT Last Filed Vital Signs Vital Sign Reading Time Taken Comments Blood Pressure 128/68 11/06/2020 3:31 PM CDT Pulse 75 11/06/2020 3:31 PM CDT Temperature 37 ??C (98.6 ??F) 11/06/2020 3:31 PM CDT Respiratory Rate 19 02/26/2020 1:31 PM DIRECTOR GLOBAL DEVELOPMENT Oxygen Saturation 96% 11/06/2020 3:31 PM CDT Inhaled Oxygen Concentration - - Weight 111.1 kg (245 lb) 02/09/2022 9:39 AM DIRECTOR GLOBAL DEVELOPMENT last recorded Height 180.3 cm (5' 11) 02/09/2022 9:39 AM DIRECTOR GLOBAL DEVELOPMENT pt reported Body Mass Index 34.17 02/09/2022 9:39 AM DIRECTOR GLOBAL DEVELOPMENT Plan of Treatment Not on file Procedures [...] - HIM SCAN 05/07/2020 1 2:00 AM DIRECTOR GLOBAL DEVELOPMENT RENAL PANEL Routine 08/16/2019 5:57 PM CDT Uncontrolled type 1 diabetes with renal manifestation (H) ABSTRACT PAP ([facility] EXTERNAL RESULT) Routine 06/09/2017 ABSTRACT HPV ([facility] EXTERNAL RESULT) Routine 06/09/2017 COMPREHENSIVE METABOLIC [...] MD LAB - URINE ORDERABLES [facility] [address] Lab (no room number, 1st floor of clinic) [place] [address], [facility] [phone] * (ABNORMAL) Hemoglobin A1c (01/05/2021 3:04 PM CDT) Hemoglobin A1C 7.4(H) 0.0 - 5.6 % 01/05/2021 3:47 PM CDT [facility] Comment: Normal <5.7% Prediabetes 5.7-6.4% ?? Diabetes 6.5% or higher Note: Adopted from ADA consensus guidelines. Blood BLOOD SPECIMEN / Unknown Venipuncture / Unknown 01/05/2021 3:04 PM CDT 01/05/2021 3:04 PM CDT Harlan Lin MD LAB - BLOOD ORDERABLES CR [facility]AT[facility] [address] [facility] Lab (no room number, 1st floor of clinic) [place] [address], [place] [phone] * (ABNORMAL) TSH with free T4 reflex (01/05/2021 3:03 PM CDT) Pathologist [facility] TSH 8.38(H) 0.40 - 4.00 mU/L 01/06/2021 9:21 AM CDT [facility] Blood BLOOD SPECIMEN / Unknown Venipuncture / Unknown 01/05/2021 3:03 PM CDT 01/05/2021 3:04 PM CDT Harlan Lin MD LAB - BLOOD ORDERABLES [facility] [address] Lab (no room number, 1st floor of clinic) [place] [address], [place] [phone] * (ABNORMAL) Lipid panel reflex to direct [...] MD LAB - BLOOD ORDERABLES [facility] [address] Lab (no room number, 1st floor of clinic) [place] [address], [facility] [phone] * (ABNORMAL) BASIC METABOLIC PANEL (01/05/2021 3:03 [...] Harlan Lin MD LAB - BLOOD ORDERABLES [facility] [address] Lab (no room number, 1st floor of clinic) [place] [address], [facility] [phone] * (ABNORMAL) EYE EXAM - HIM SCAN (05/07/2020 12:00 AM DIRECTOR GLOBAL DEVELOPMENT) RETINOPATHY POSITIVE(A ) 05/07/2020 Narrative Suyapa Adams - 05/07/2020 12:00 AM DIRECTOR GLOBAL DEVELOPMENT DIABETIC EYE EXAM [facility] Provider Outside OTHER * (ABNORMAL) Renal panel (Alb, BUN, Ca, Cl, CO2, Creat, Gluc, Phos, K, Na) (08/16/2019 5:57 PM CDT) Sodium 136 133 - 144 mmol/L 08/16/2019 6:32 PM T [facility] Potassium 4.6 3.4 - 5.3 mmol/L 08/16/2019 6:32 PM T [facility] Chloride 107 94 - 109 mmol/L 08/16/2019 6:32 PM [facility] Carbon Dioxide 24 20 - 32 mmol/L 08/16/2019 6:39 PM [facility] Anion Gap 5 3 - 14 mmol/L 08/16/2019 6:39 PM [facility] Glucose 166(H) 70 - 99 mg/dL 08/16/2019 6:39 PM [facility] Urea Nitrogen 21 7 - 30 mg/dL 08/16/2019 6:39 PM [facility] Creatinine 1.41(H) 0.52 - 1.04 mg/dL 08/16/2019 6:39 PM [facility] GFR Estimate 42(L) >60 mL/min/{1 .73_m2} 08/16/2019 6:39 PM [facility] Comment: Non GFR Calc Starting 03/14/2018, serum creatinine based estimated GFR (eGFR) will be calculated using the Chronic Kidney Disease Epidemiology Collaboration (CKD-EPI) equation. GFR Estimate If Black 49(L) >60 mL/min/{1 .73_m2} 08/16/2019 6:39 PM [facility] Comment: GFR Calc Starting 03/14/2018, serum creatinine based estimated GFR (eGFR) will be calculated using the Chronic Kidney Disease Epidemiology Collaboration (CKD-EPI) equation. Calcium 9.0 8.5 - 10.1 mg/dL 08/16/2019 6:39 PM [facility] Phosphorus 3.4 2.5 - 4.5 mg/dL 08/16/2019 6:39 PM CDT [facility] Albumin 3.9 3.4 - 5.0 g/dL 08/16/2019 6:39 PM CDT [facility] Blood specimen (specimen) 08/16/2019 5:57 PM CDT 08/16/2019 5:58 PM CDT Annette Alvarez STEAM TABLE WORKER MINK RANCHER LAB - BLOOD O RDERABLES [facility] [address] [place] [address], [facility] [phone] [facility] [address] [place] [address], [facility] [phone] * ABSTRACT HPV-NO CHARGE (06/09/2017) HPV Abstract See Scanned Document [facility] 06/09/2017 Narrative [facility]ve[facility] - 06/09/2017 Krissy Staton MA ??Abstract Quality Initiatives 21 hours ago (1:44 PM) Please abstract the following data from this visit with this patient into the appropriate field in [employer]: Tests that can be patient reported without a hard copy: Other Tests found in the patient's chart through Chart Review/Care Everywhere: Pap smear done by this group Jarrell this date: 06/09/17 Provider Outside LAB - HIM EXTERNAL R ESULT [facility] [address] [place] [address], [facility] * ABSTRACT PAP-NO CHARGE (06/09/2017) PAP-ABSTRACT See Scanned Document [facility] PARCXMART TECHNOLOGIESCENTRAL LABORATORY 06/09/2017 Narrative [facility] - 06/09/2017 Krissy Staton MA ??Abstract Quality Initiatives 21 hours ago (1:44 PM) Please abstract the following data from this visit with this patient into the appropriate field in [employer]: Tests that can be patient reported without a hard copy: Other Tests found in the patient's chart through Chart Review/Care Everywhere: Pap smear done by this group Reneasurinder this date: 06/09/17 Provider Outside LAB - [facility] EXTERNAL R ESULT [facility] LAB-CENTRAL LABORATORY [address] * (ABNORMAL) CBC with platelets + differential (12/25/2014 10:48 PM CDT) WBC 10.7 4.0 - 11.0 10e9/L [facility] RBC Count 3.98 3.8 - 5.2 10e12/L [facility] Hemoglobin 11.9 11.7 - 15.7 g/dL [facility] Hematocrit 34.5(L) 35.0 - 47.0 % [facility] MCV 87 78 - 100 fl [facility] MCH 29.9 26.5 - 33.0 pg [facility] MCHC 34.5 31.5 - 36.5 g/dL [facility] RDW 12.3 10.0 - 15.0 % [facility] Platelet Count 290 150 - 450 10e9/L [facility] Diff Method Automated Method [facility] % Neutrophils 71.9 % [facility] % Lymphocytes 19.2 % [facility] % Monocytes 5.6 % [facility] % Eosinophils 2.7 % [facility] % Basophils 0.5 % [facility] % Immature Granulocytes 0.1 % [facility] Absolute Neutrophil 7.7 1.6 - 8.3 10e9/L [facility] Absolute Lymphocytes 2.1 0.8 - 5.3 10e9/L [facility] Absolute Monocytes 0.6 0.0 - 1.3 10e9/L [facility] Absolute Eosinophils 0.3 0.0 - 0.7 10e9/L [facility] Absolute Basophils 0.1 0.0 - 0.2 10e9/L [facility] Abs Immature Granulocytes 0.0 0 - 0.4 10e9/L [facility] Blood specimen (specimen) 12/25/2014 10:48 PM CDT 12/25/2014 10:58 PM CDT Constance Wolff PA-C LAB - BLOO D ORDERABLES [facility] [address] [place] [address], [facility] [phone] * (ABNORMAL) Comprehensive metabolic panel (12/25/2014 10:48 PM CDT) Sodium 137 133 - 144 mmol/L [facility] Potassium 4.3 3.4 - 5.3 mmol/L [facility] Chloride 104 94 - 109 mmol/L [facility] Carbon Dioxide 29 20 - 32 mmol/L [facility] Anion Gap 4 3 - 14 mmol/L [facility] Glucose 77 70 - 99 mg/dL [facility] Urea Nitrogen 16 7 - 30 mg/dL [facility] Creatinine 1.27(H) 0.52 - 1.04 mg/dL [facility] GFR Estimate 45(L) >60 mL/min/1.7 m2 [facility] Comment:Non GFR Calc GFR Estimate If Black 54(L) >60 mL/min/1.7 m2 [facility] Comment: GFR Calc Calcium 8.2(L) 8.5 - 10.1 mg/dL [facility] Bilirubin Total 0.2 0.2 - 1.3 mg/dL [facility] Albumin 3.7 3.4 - 5.0 g/dL [facility] Protein Total 7.1 6.8 - 8.8 g/dL [facility] Alkaline Phosphatase 87 40 - 150 U/L [facility] ALT 24 0 - 50 U/L [facility] AST 16 0 - 45 U/L [facility] Blood specimen (specimen) 12/25/2014 10:48 PM CDT 12/25/2014 10:58 PM CDT Constance Wolff PA-C LAB - BLOO D ORDERABLES Performing Organization Address City/[facility]/ZIP Co de Phone Number [facility] [address] [address], [facility] [phone] * (ABNORMAL) *UA reflex to Microscopic (12/25/2014 10:05 PM CDT) Color Urine Yellow [facility] Appearance Urine Clear [facility] Glucose Urine 100(A) NEG mg/dL [facility] Bilirubin Urine Negative NEG [facility] Ketones Urine Negative NEG mg/dL [facility] Specific [place] Urine 1.010 1.003 - 1.035 [facility] Blood Urine Negative NEG [facility] pH Urine 6.0 5.0 - 7.0 pH [facility] Protein Albumin Urine Negative NEG mg/dL [facility] Urobilinogen Urine 0.2 0.2 - 1.0 EU/dL [facility] Nitrite Urine Negative NEG [facility] Leukocyte Esterase Urine Negative NEG [facility] Source Midstream Urine [facility] 12/25/2014 10:0 5 PM CDT 12/25/2014 10:13 PM CDT Gem Ribeiro MD LAB - URINE ORDERAB LES Performing Organization Address City/[facility] Co de Phone Number [facility] [address] [phone], [facility] [phone] from Last 3 Months or Most Recently Relevant to Health Maintenance Care Teams Water Resource Engineering Specialist Relationship Specialty Start Date End Date Nikita Gamble MD [facility] [address] [place] [address] PCP - General Family Medicine 05/26/20 Jocelyn Davidson, RD [facility] [address] [place] [address] Grader Marker Dietitian, Registered 05/25/18 Mikki Blevins MD [address] [place] [address] Endocrinology, Diabetes, and Metabolism 05/07/21
--- OUTSIDE RECORDS SUMMARY | 2023-12-29 00:40 | XMS_ITS | Clinical Summary ---
Author Organization [facility] Address [address] [place] [address]. [place] [address] Care Team Providers Care Ladle Cleaner Name Role Phone Jocelyn Davidson RD Unavailable [phone] Nikita Gamble MD Primary Care Provider Mikki Blevins MD Unavailable [phone] Allergies No known active allergies Medications [...] hours Using T:Connect: Yes Dexcom Sharing Code: [id number] 02/21/2019 Active blood glucose (ACCU-CHEK RADHA PLUS) [...] Sex Assigned at Female 03/04/2020 12:33 PM AUTOMOTIVE SERVICE DIRECTOR Gender Identity Female 03/04/2020 12:33 PM AUTOMOTIVE SERVICE DIRECTOR Sexual Orientation Straight 03/04/2020 12 :33 PM AUTOMOTIVE SERVICE DIRECTOR Last Filed Vital Signs Vital Sign Reading Time Taken Comments Blood Pressure 128/68 11/06/2020 3:31 PM CDT Pulse 75 11/06/2020 3:31 PM CDT Temperature 37 ??C (98.6 ??F) 11/06/2020 3:31 PM CDT Respiratory Rate 19 02/26/2020 1:31 PM AUTOMOTIVE SERVICE DIRECTOR Oxygen Saturation 96% 11/06/2020 3:31 PM CDT Inhaled Oxygen Concentration - - Weight 111.1 kg (245 lb) 02/09/2022 9:39 AM AUTOMOTIVE SERVICE DIRECTOR last recorded Height 180.3 cm (5' 11) 02/09/2022 9:39 AM AUTOMOTIVE SERVICE DIRECTOR pt reported Body Mass Index 34.17 02/09/2022 9:39 AM AUTOMOTIVE SERVICE DIRECTOR Plan of Treatment Health Maintenance Due Date [...] - HIM SCAN 05/07/2020 1 2:00 AM AUTOMOTIVE SERVICE DIRECTOR RENAL PANEL Routine 08/16/2019 5:57 PM CDT Uncontrolled type 1 diabetes with renal manifestation (H) ABSTRACT PAP ([facility] EXTERNAL RESULT) Routine 06/09/2017 ABSTRACT HPV ([facility] EXTERNAL RESULT) Routine 06/09/2017 COMPREHENSIVE METABOLIC [...] MD LAB - URINE ORDERABLES [facility] [address] Lab (no room number, 1st floor of clinic) [place] [address], [place] [phone] * (ABNORMAL) Hemoglobin A1c (01/05/2021 3:04 PM CDT) Hemoglobin A1C 7.4(H) 0.0 - 5.6 % 01/05/2021 3:47 PM CDT CR LABORATORY Comment: Normal <5.7% Prediabetes 5.7-6.4% ?? Diabetes 6.5% or higher Note: Adopted from ADA consensus guidelines. Blood BLOOD SPECIMEN / Unknown Venipuncture / Unknown 01/05/2021 3:04 PM CDT 01/05/2021 3:04 PM CDT Harlan Lin MD LAB - BLOOD ORDERABLES CR LABORATORY [facility] Lab [id number] [place] [address] Lab (no room number, 1st floor of clinic) [place] [address], [place] [phone] * (ABNORMAL) TSH with free T4 reflex (01/05/2021 3:03 PM CDT) TSH 8.38(H) 0.40 - 4.00 mU/L 01/06/2021 9:21 AM CDT OX LABORATORY Blood BLOOD SPECIMEN / Unknown Venipuncture / Unknown 01/05/2021 3:03 PM CDT 01/05/2021 3:04 PM CDT Harlan Lin MD LAB - BLOOD ORDERABLES [facility] [address] Lab (no room number, 1st floor of clinic) [place] [address], [facility] [phone] * (ABNORMAL) Lipid panel reflex to direct [...] MD LAB - BLOOD ORDERABLES OX LABORATORY [facility] Lab [address] Lab (no room number, 1st floor of clinic) [place] [address], [facility] [phone] * (ABNORMAL) BASIC METABOLIC PANEL (01/05/2021 3:03 [...] Lin MD LAB - BLOOD ORDERABLES [facility]X [facility] [address] Lab (no room number, 1st floor of clinic) [place] [address], [facility] [phone] * (ABNORMAL) EYE EXAM - HIM SCAN (05/07/2020 12:00 AM AUTOMOTIVE SERVICE DIRECTOR) RETINOPATHY POSITIVE(A ) 05/07/2020 Reynaldo Suyapa Adams - 05/07/2020 12:00 AM AUTOMOTIVE SERVICE DIRECTOR DIABETIC EYE EXAM [facility] EYE Provider Outside OTHER * (ABNORMAL) Renal panel (Alb, BUN, Ca, Cl, CO2, Creat, Gluc, Phos, K, Na) (08/16/2019 5:57 PM CDT) [facility] Sodium 136 133 - 144 mmol/L 08/16/2019 6:[address] [facility] Potassium 4.6 3.4 - 5.3 mmol/L 08/16/2019 6:[address] [facility] Chloride 107 94 - 109 mmol/L 08/16/2019 6:[address] [facility] Carbon Dioxide 24 20 - 32 mmol/L 08/16/2019 6:39 PM [facility] Anion Gap 5 3 - 14 mmol/L 08/16/2019 6:39 PM [facility] Glucose 166(H) 70 - 99 mg/dL 08/16/2019 6:39 PM [facility] Urea Nitrogen 21 7 - 30 mg/dL 08/16/2019 6:39 PM [facility] Creatinine 1.41(H) 0.52 - 1.04 mg/dL 08/16/2019 6:39 PM [facility] GFR Estimate 42(L) >60 mL/min/{1 .73_m2} 08/16/2019 6:39 PM [facility] Comment: Non GFR Calc Starting 03/14/2018, serum creatinine based estimated GFR (eGFR) will be calculated using the Chronic Kidney Disease Epidemiology Collaboration (CKD-EPI) equation. GFR Estimate If Black 49(L) >60 mL/min/{1 .73_m2} 08/16/2019 6:39 PM CDT [facility] Comment: GFR Calc Starting 03/14/2018, serum creatinine based estimated GFR (eGFR) will be calculated using the Chronic Kidney Disease Epidemiology Collaboration (CKD-EPI) equation. Calcium 9.0 8.5 - 10.1 mg/dL 08/16/2019 6:39 PM CDT [facility] Phosphorus 3.4 2.5 - 4.5 mg/dL 08/16/2019 6:39 PM CDT [facility] Albumin 3.9 3.4 - 5.0 g/dL 08/16/2019 6:39 PM CDT [facility] Blood specimen (specimen) 08/16/2019 5:57 PM CDT 08/16/2019 5:58 PM CDT Annette Alvarez CONSULTING SERVICES MANAGER EMD SPECIAL EDUCATION TEACHER LAB - BLOOD O RDERABLES [facility] [address] [place] [address], [facility] [phone] [facility] [address] [place] [address], [facility] [phone] * ABSTRACT HPV-NO CHARGE (06/09/2017) HPV Abstract See Scanned Document [facility] 06/09/2017 Narrative [facility] - 06/09/2017 Krissy Staton [...] Outside LAB - HIM EXTERNAL R ESULT [facility] [address] * ABSTRACT PAP-NO CHARGE (06/09/2017) PAP-ABSTRACT See Scanned Document [facility] 06/09/2017 Narrative [facility] - 06/09/2017 Krissy Staton MA ??Abstract Quality Initiatives 21 hours ago (1:44 PM) Please abstract the following data from this visit with this patient into the appropriate field in [employer]: Tests that can be patient reported without a hard copy: Other Tests found in the patient's chart through Chart Review/Care Everywhere: Pap smear done by this group Jar[place] this date: 06/09/17 Provider Outside LAB - HIM EXTERNAL R ESULT [facility] [address] * (ABNORMAL) CBC with platelets + differential (12/25/2014 10:48 PM CDT) WBC 10.7 4.0 - 11.0 10e9/L [facility] RBC Count 3.98 3.8 - 5.2 10e12/L [facility] Hemoglobin 11.9 11.7 - 15.7 g/dL [facility] Hematocrit 34.5(L) 35.0 - 47.0 % [facility] MCV 87 78 - 100 fl [facility] MCH 29.9 26.5 - 33.0 pg [facility] MCHC 34.5 31.5 - 36.5 g/dL [facility] RDW 12.3 10.0 - 15.0 % [facility] Platelet Count 290 150 - 450 10e9/L [facility] Diff Method Automated Method [facility] % Neutrophils 71.9 % [facility] % Lymphocytes 19.2 % [facility] % Monocytes 5.6 % [facility] % Eosinophils 2.7 % [facility] % Basophils 0.5 % [facility] % Immature Granulocytes 0.1 % [facility] Absolute Neutrophil 7.7 1.6 - 8.3 10e9/L [facility] Absolute Lymphocytes 2.1 0.8 - 5.3 10e9/L [facility] Absolute Monocytes 0.6 0.0 - 1.3 10e9/L [facility] Absolute Eosinophils 0.3 0.0 - 0.7 10e9/L [facility] Absolute Basophils 0.1 0.0 - 0.2 10e9/L [facility] Abs Immature Granulocytes 0.0 0 - 0.4 10e9/L [facility] Blood specimen (specimen) 12/25/2014 10:48 PM CDT 12/25/2014 10:58 PM CDT Constance Wolff PA-C LAB - BLOO D ORDERABLES [facility] [address] [place] [address], [facility] [phone] * (ABNORMAL) Comprehensive metabolic panel (12/25/2014 10:48 PM CDT) Sodium 137 133 - 144 mmol/L [facility] Potassium 4.3 3.4 - 5.3 mmol/L [facility] Chloride 104 94 - 109 mmol/L [facility] Carbon Dioxide 29 20 - 32 mmol/L [facility] Anion Gap 4 3 - 14 mmol/L [facility] Glucose 77 70 - 99 mg/dL [facility] Urea Nitrogen 16 7 - 30 mg/dL [facility] Creatinine 1.27(H) 0.52 - 1.04 mg/dL [facility] GFR Estimate 45(L) >60 mL/min/1.7 m2 [facility] Comment:Non GFR Calc GFR Estimate If Black 54(L) >60 mL/min/1.7 m2 [facility] Comment: GFR Calc Calcium 8.2(L) 8.5 - 10.1 mg/dL [facility] Bilirubin Total 0.2 0.2 - 1.3 mg/dL [facility] Albumin 3.7 3.4 - 5.0 g/dL [facility] Protein Total 7.1 6.8 - 8.8 g/dL [facility] Alkaline Phosphatase 87 40 - 150 U/L [facility] ALT 24 0 - 50 U/L [facility] AST 16 0 - 45 U/L [facility] Blood specimen (specimen) 12/25/2014 10:48 PM CDT 12/25/2014 10:58 PM CDT Constance Wolff PA-C LAB - BLOO D ORDERABLES [facility] [address] [place] [address], [facility] [phone] * (ABNORMAL) *UA reflex to Microscopic (12/25/2014 10:05 PM CDT) Color Urine Yellow [facility] Appearance Urine Clear [facility] Glucose Urine 100(A) NEG mg/dL [facility] Bilirubin Urine Negative NEG [facility] Ketones Urine Negative NEG mg/dL [facility] Specific [place] Urine 1.010 1.003 - 1.035 [facility] Blood Urine Negative NEG [facility] pH Urine 6.0 5.0 - 7.0 pH [facility] Protein Albumin Urine Negative NEG mg/dL [facility] Urobilinogen Urine 0.2 0.2 - 1.0 EU/dL [facility] Nitrite Urine Negative NEG [facility] Leukocyte Esterase Urine Negative NEG [facility] Source Midstream Urine [facility] 12/25/2014 10:0 5 PM CDT 12/25/2014 10:13 PM CDT Gem Ribeiro MD LAB - URINE ORDERAB LES [facility] [address] [place] [address], [facility] [phone] from Last 3 Months or Most Recently Relevant to Health Maintenance Care Teams Ladle Cleaner Relationship Specialty Start Date End Date Nikita Gamble MD [place] [address] [place] [id number] PCP - General Family Medicine 05/26/20 Jocelyn Davidson, RENATA [place] [address] [place] [address] Marine Steam Fitter Dietitian, Registered 05/25/18 Mikki Blevins MD [address] [place], [place] [address] Endocrinology, Diabetes, and Metabolism 05/07/21
--- OUTSIDE RECORDS SUMMARY | 2023-12-29 00:40 | XMS_ITS | Encounter Summary ---
Author Organization [place] Address [address] [place] [address]. [place] [address] Care Team Providers Care Ppa Teacher Name Role Phone Stuart Jocelyn Bran YANEZ Unavailable [phone] Nikita Gamble MD Primary Care Provider Naveen Casiano MD Unavailable [phone] Mikki Blevins MD Unavailable [phone] Mikki Blevins MD Unavailable [phone] Mindi Llanes PA-C Unavailable [phone] Encounter Details Date Type Department Care Team [...] Sex Assigned at Female 03/04/2020 12:33 PM NARROW GAUGE OPERATOR Gender Identity Female 03/04/2020 12:33 PM NARROW GAUGE OPERATOR Sexual Orientation Straight 03/04/2020 12 :33 PM NARROW GAUGE OPERATOR documented as of this encounter Plan of Treatment Not on file documented as of this encounter Visit Diagnoses Not on filedocumented in this encounter Additional Health Concerns Assessment Noted Time PHQ-9 Depression Total Score: 0 02/26/20 20 1:30 PM NARROW GAUGE OPERATOR documented as of this encounter Care Teams Ppa Teacher Relationship Specialty Start Date End Date Nikita Gamble MD [address] [place] [address] PCP - General Family Medicine 05/26/20 Jocelyn Davidson, RENATA [address] [place] [address] Powder Mixer Dietitian, Registered 05/25/18 [place] [address] [place] [address] Assigned PCP 11/16/20 12/18/23 Mikki Blevins MD [address] [place] [address] Endocrinology, Diabetes, and Metabolism 05/07/21 [place] [address] Assigned Endocrinology Provider 08/02/21 01/28/23 Mindi Llanes PA-C [address] [facility] [address] [place] [address] [place] [address] Assigned Surgical Provider 09/26/21 08/17/23 documented as of this encounter
--- OUTSIDE RECORDS SUMMARY | 2023-12-29 00:40 | XMS_ITS | Encounter Summary ---
Author Organization [facility] Address [address] [place] [address]. [place] [address] Care Team Providers Care Reexaminer Name Role Phone Stuart Jocelyn Bran YANEZ Unavailable [phone] Nikita Gamble MD Primary Care Provider Naveen Casiano MD Unavailable [phone] Mikki Blevins MD Unavailable [phone] Mikki Blevins MD Unavailable [phone] Mindi Llanes PA-C Unavailable [phone] Encounter Details Date Type Department Care Team [...] Sex Assigned at Female 03/04/2020 12:33 PM LABOR REPRESENTATIVE Gender Identity Female 03/04/2020 12:33 PM LABOR REPRESENTATIVE Sexual Orientation Straight 03/04/2020 12 :33 PM LABOR REPRESENTATIVE documented as of this encounter Plan of Treatment Not on file documented as of this encounter Visit Diagnoses Not on filedocumented in this encounter Additional Health Concerns Assessment Noted Time PHQ-9 Depression Total Score: 0 02/26/20 20 1:30 PM LABOR REPRESENTATIVE documented as of this encounter Care Teams Reexaminer Relationship Specialty Start Date End Date Nikita Gamble MD [address] [place] [address] PCP - General Family Medicine 05/26/20 Jocelyn Davidson, RENATA [address] [place] [address] Trust Vault Custodian Dietitian, Registered 05/25/18 [place] [address] [place] [address] Assigned PCP 11/16/20 12/18/23 Mikki Blevins MD [address] [place] [address] Endocrinology, Diabetes, and Metabolism 05/07/21 [place] [address] Assigned Endocrinology Provider 08/02/21 01/28/23 Mindi Llanes PA-C [address] [facility] [address] [place] [address] [place] [address] Assigned Surgical Provider 09/26/21 08/17/23 documented as of this encounter
--- OUTSIDE RECORDS SUMMARY | 2023-12-29 00:40 | XMS_ITS | Encounter Summary ---
Author Organization [place] Address [address] [place] [address]. [place] [address] Care Team Providers Care Bee Tender Name Role Phone Jocelyn Davidson RD Unavailable [phone] Nikita Gamble MD Primary Care Provider Naveen Casiano MD Unavailable [phone] Mikki Blevins MD Unavailable [phone] Mikki Blevins MD Unavailable [phone] Mindi Llanes PA-C Unavailable [phone] Encounter Details Date Type Department Care Team (Late st Contact Info) Description 02/05/2022 [facility] Medical Advice [facility] [address] [place] [address] Liberty Gilliam MA Social History Tobacco Use Types Packs/Day Years Used Date Smoking Tobacco: Never Smokeless Tobacco: Never Alcohol Use Standard Drinks/Week Comments Yes 0 (1 standard drink = 0.6 oz pur e alcohol) rare PHQ-2 Answer Date Recorded PHQ-2 Score 0 02/26/2020 Sex and Gender Information Value Date Recorded Sex Assigned at Female 03/04/2020 12:33 PM CITY CARRIER ASSISTANT Gender Identity Female 03/04/2020 12:33 PM CITY CARRIER ASSISTANT Sexual Orientation Straight 03/04/2020 12 :33 PM CITY CARRIER ASSISTANT documented as of this encounter Plan of Treatment Not on file documented as of this encounter Visit Diagnoses Not on filedocumented in this encounter Additional Health Concerns Assessment Noted Time PHQ-9 Depression Total Score: 0 02/26/20 20 1:30 PM CITY CARRIER ASSISTANT documented as of this encounter Care Teams Bee Tender Relationship Specialty Start Date End Date Nikita Gamble MD [place] [address] [place] [address] PCP - General Family Medicine 05/26/20 Jocelyn Davidson, RENATA [place] [address] [place] [address] It Coordinator Dietitian, Registered 05/25/18 [place] [address] [place] [address] Assigned PCP 11/16/20 12/18/23 Mikki Blevins MD [address] [place] [address] Endocrinology, Diabetes, and Metabolism 05/07/21 [place] [address] Assigned Endocrinology Provider 08/02/21 01/28/23 Mindi Llanes PA-C [address] [facility] [place] [address] [place] [address] Assigned Surgical Provider 09/26/21 08/17/23 documented as of this encounter
--- OUTSIDE RECORDS SUMMARY | 2023-12-29 00:40 | XMS_ITS | Encounter Summary ---
Author Organization [place] Address [address] [place] [address]. [place] [address] Care Team Providers Care Store Assistant Name Role Phone Stuart Jocelyn Bran YANEZ Unavailable [phone] Nikita Gamble MD Primary Care Provider [phone] Naveen Casiano MD Unavailable [phone] Mikki Blevins MD Unavailable [phone] Mikki Blevins MD Unavailable [phone] Mindi Llanes PA-C Unavailable [phone] Encounter Details Date Type Department Care Team (Late st Contact Info) Description 10/20/2021 [facility] [address] [address] Diandra Giordano, MAURICE Social History Tobacco Use Types Packs/Day Years Used Date Smoking Tobacco: Never Smokeless Tobacco: Never Alcohol Use Standard Drinks/Week Comments Yes 0 (1 standard drink = 0.6 oz pur e alcohol) rare PHQ-2 Answer Date Recorded PHQ-2 Score 0 02/26/2020 Sex and Gender Information Value Date Recorded Sex Assigned at Female 03/04/2020 12:33 PM RESOLUTION REP Gender Identity Female 03/04/2020 12:33 PM RESOLUTION REP Sexual Orientation Straight 03/04/2020 12 :33 PM RESOLUTION REP documented as of this encounter Plan of Treatment Not on file documented as of this encounter Visit Diagnoses Not on filedocumented in this encounter Additional Health Concerns Assessment Noted Time PHQ-9 Depression Total Score: 0 02/26/20 20 1:30 PM RESOLUTION REP documented as of this encounter Care Teams Store Assistant Relationship Specialty Start Date End Date Nikita Gamble MD [place] [address] [place] [address] PCP - General Family Medicine 05/26/20 Jocelyn Davidson, RENATA [place] [address] [place] [address] Tightener Dietitian, Registered 05/25/18 [place] [address] [place] [address] Assigned PCP 11/16/20 12/18/23 Mikki Blevins MD [address] [place] [address] Endocrinology, Diabetes, and Metabolism 05/07/21 [place] [address] Assigned Endocrinology Provider 08/02/21 01/28/23 Mindi Llanes PA-C [address] [facility] [place] [address] [place] [address] Assigned Surgical Provider 09/26/21 08/17/23 documented as of this encounter
--- OUTSIDE RECORDS SUMMARY | 2023-12-29 00:40 | XMS_ITS | Encounter Summary ---
Author Organization [place] Address [address] [place] [address]. [place] [address] Care Team Providers Care Shell Shop Supervisor Name Role Phone StuartJocelyn desouza Bran YANEZ Unavailable [phone] Nikita Gamble MD Primary Care Provider Naveen Casiano MD Unavailable [phone] Mikki Blevins MD Unavailable [phone] Mikki Blevins MD Unavailable [phone] Mindi Llanes PA-C Unavailable [phone] Encounter Details Date Type Department Care Team (Late st Contact Info) Description 02/11/2022 [facility] Medical Advice [facility] [address] [place] [address] Alix Marquez, VASQUEZ [facility] [address] [place] [address] [address] [place] [address] Social History Tobacco Use Types Packs/Day Years Used Date Smoking Tobacco: Never Smokeless Tobacco: Never Alcohol Use Standard Drinks/Week Comments Yes 0 (1 standard drink = 0.6 oz pur e alcohol) rare PHQ-2 Answer Date Recorded PHQ-2 Score 0 02/26/2020 Sex and Gender Information Value Date Recorded Sex Assigned at Female 03/04/2020 12:33 PM DIRECTOR RECREATION Gender Identity Female 03/04/2020 12:33 PM DIRECTOR RECREATION Sexual Orientation Straight 03/04/2020 12 :33 PM DIRECTOR RECREATION documented as of this encounter Plan of Treatment Not on file documented as of this encounter Visit Diagnoses Not on filedocumented in this encounter Additional Health Concerns Assessment Noted Time PHQ-9 Depression Total Score: 0 02/26/20 20 1:30 PM DIRECTOR RECREATION documented as of this encounter Care Teams Shell Shop Supervisor Relationship Specialty Start Date End Date Nikita Gamble MD [place] [address] [place] [address] PCP - General Family Medicine 05/26/[address] [place] [address] Manager Clinical Dietitian, Registered 05/25/18 [place] [address] [place] [address] Assigned PCP 11/16/20 12/18/23 Mikki Blevins MD [address] [place] [address] Endocrinology, Diabetes, and Metabolism 05/07/21 Mikki Blevins MD [place] [address] Assigned Endocrinology Provider 08/02/21 01/28/23 Mindi Llanes PA-C [address] [facility] [address] [place] [address] Assigned Surgical Provider 09/26/21 08/17/23 documented as of this encounter
--- OUTSIDE RECORDS SUMMARY | 2023-12-29 00:40 | XMS_ITS | Encounter Summary ---
Author Organization [place] Address [address] [place] [address]. [place] [address] Care Team Providers Care Health Support Specialist Name Role Phone StuartJocelyn desouza Bran YANEZ Unavailable [phone] Nikita Gamble MD Primary Care Provider Naveen Casiano MD Unavailable [phone] Mikki Blevins MD Unavailable [phone] Mikki Blevins MD Unavailable [phone] Mindi Llanes PA-C Unavailable [phone] Encounter Details Date Type Department Care Team (Late st Contact Info) Description 12/21/2021 [facility] Medical Advice [facility] [place] [address] [facility] [address] [place] [address] Mindi Llanes PA-C [address] [facility] [address] [place] [address] Social History Tobacco Use Types Packs/Day Years Used Date Smoking Tobacco: Never Smokeless Tobacco: Never Alcohol Use Standard Drinks/Week Comments Yes 0 (1 standard drink = 0.6 oz pur e alcohol) rare PHQ-2 Answer Date Recorded PHQ-2 Score 0 02/26/2020 Sex and Gender Information Value Date Recorded Sex Assigned at Female 03/04/2020 12:33 PM ANALYTICAL RESEARCH PROGRAM MANAGER Gender Identity Female 03/04/2020 12:33 PM ANALYTICAL RESEARCH PROGRAM MANAGER Sexual Orientation Straight 03/04/2020 12 :33 PM ANALYTICAL RESEARCH PROGRAM MANAGER documented as of this encounter Plan of Treatment Not on file documented as of this encounter Visit Diagnoses Not on filedocumented in this encounter Additional Health Concerns Assessment Noted Time PHQ-9 Depression Total Score: 0 02/26/20 20 1:30 PM ANALYTICAL RESEARCH PROGRAM MANAGER documented as of this encounter Care Teams Health Support Specialist Relationship Specialty Start Date End Date Nikita Gamble MD [address] [place] [address] PCP - General Family Medicine 05/26/[address] [place] [address] [place] [address] Acid Filler Dietitian, Registered 05/25/18 [place] [address] [place] [address] Assigned PCP 11/16/20 12/18/23 Mikki Blevins MD 9 [place] [address] Endocrinology, Diabetes, and Metabolism 05/07/21 [place] [address] Assigned Endocrinology Provider 08/02/21 01/28/23 Mindi Llanes PA-C [address] [facility] [address] [place] [address] Assigned Surgical Provider 09/26/21 08/17/23 documented as of this encounter
--- OUTSIDE RECORDS SUMMARY | 2023-12-29 00:40 | XMS_ITS | Encounter Summary ---
Author Organization [place] Address [address] [place] [address]. [place] [address] Care Team Providers Care Security Sales Manager Name Role Phone StuartJocelyn Bran YANEZ Unavailable [phone] Nikita Gamble MD Primary Care Provider Naveen Casiano MD Unavailable [phone] Mikki Blevins MD Unavailable [phone] Mikki Blevins MD Unavailable [phone] Mindi Llanes PA-C Unavailable [phone] Reason for Visit * Reason Comments Medication Refill Encounter Details Date Type Department Care Team (Late st Contact Info) Description 12/20/2021 Refill [facility] [address] [place] [id number] Mindi Llanes PA-C [address] [place] [id number] Medication Refill Social History Tobacco Use Types Packs/Day Years Used Date Smoking Tobacco: Never Smokeless Tobacco: Never Alcohol Use Standard Drinks/Week Comments Yes 0 (1 standard drink = 0.6 oz pur e alcohol) rare PHQ-2 Answer Date Recorded PHQ-2 Score 0 02/26/2020 Sex and Gender Information Value Date Recorded Sex Assigned at Female 03/04/2020 12:33 PM VISCOSITY WORKER Gender Identity Female 03/04/2020 12:33 PM VISCOSITY WORKER Sexual Orientation Straight 03/04/2020 12 :33 PM VISCOSITY WORKER documented as of this encounter Miscellaneous [...] Total Score: 0 02/26/20 20 1:30 PM VISCOSITY WORKER documented as of this encounter Care Teams Security Sales Manager Relationship Specialty Start Date End Date Nikita Gamble MD [facility] [address] [place] [address] [place] [address] PCP - General Family Medicine 05/26/[address] [place] [address] Sock Ironer Dietitian, Registered 05/25/18 [place] [address] [place] [address] Assigned PCP 11/16/20 12/18/23 Mikki Blevins MD 9 [place], [place] [address] Endocrinology, Diabetes, and Metabolism 05/07/21 [place] [address] Assigned Endocrinology Provider 08/02/21 01/28/23 Mindi Llanes PA-C [address] [place] [address] Assigned Surgical Provider 09/26/21 08/17/23 documented as of this encounter
--- OUTSIDE RECORDS SUMMARY | 2023-12-29 00:40 | XMS_ITS | Encounter Summary ---
Author Organization [place] Address [address] [place] [address]. [place] [address] Care Team Providers Care Tuck Pointer Name Role Phone Stuart Jocelyn Bran YANEZ Unavailable [phone] Nikita Gamble MD Primary Care Provider Naveen Casiano MD Unavailable [phone] Mikki Blevins MD Unavailable [phone] Mikki Blevins MD Unavailable [phone] Mindi Llanes PA-C Unavailable [phone] Encounter Details Date Type Department Care Team (Late st Contact Info) Description 02/11/2022 [facility] Medical Advice [facility] [address] [place] [address] Jammie Mohr, RN Social History Tobacco Use Types Packs/Day Years Used Date Smoking Tobacco: Never Smokeless Tobacco: Never Alcohol Use Standard Drinks/Week Comments Yes 0 (1 standard drink = 0.6 oz pur e alcohol) rare PHQ-2 Answer Date Recorded PHQ-2 Score 0 02/26/2020 Sex and Gender Information Value Date Recorded Sex Assigned at Female 03/04/2020 12:33 PM SMALL PRODUCTS ASSEMBLER Gender Identity Female 03/04/2020 12:33 PM SMALL PRODUCTS ASSEMBLER Sexual Orientation Straight 03/04/2020 12 :33 PM SMALL PRODUCTS ASSEMBLER documented as of this encounter Plan of Treatment Not on file documented as of this encounter Visit Diagnoses Not on filedocumented in this encounter Additional Health Concerns Assessment Noted Time PHQ-9 Depression Total Score: 0 02/26/20 20 1:30 PM SMALL PRODUCTS ASSEMBLER documented as of this encounter Care Teams Tuck Pointer Relationship Specialty Start Date End Date Nikita Gamble MD [place] [address] [place] [address] PCP - General Family Medicine 05/26/[address] [place] [address] [place] [address] Marine Fireman Dietitian, Registered 05/25/18 [place] [address] [place] [address] Assigned PCP 11/16/20 12/18/23 Mikki Blevins MD [address] [place] [address] Endocrinology, Diabetes, and Metabolism 05/07/21 [place] [address] Assigned Endocrinology Provider 08/02/21 01/28/23 Mindi Llanes PA-C [address] [facility] [address] [place] [address] Assigned Surgical Provider 09/26/21 08/17/23 documented as of this encounter
--- OUTSIDE RECORDS SUMMARY | 2023-12-29 00:41 | XMS_ITS | Encounter Summary ---
Author Organization [place] Address [address] [place] [address]. [place] [address] Care Team Providers Care Thermodynamicist Name Role Phone StuartJocelyn desouza Bran YANEZ Unavailable [phone] Nikita Gamble MD Primary Care Provider Naveen Casiano MD Unavailable [phone] Mikki Blevins MD Unavailable [phone] Mikki Blevins MD Unavailable [phone] Mindi Llanes PA-C Unavailable [phone] Encounter Details Date Type Department Care Team (Late st Contact Info) Description 08/05/2021 [facility] Medical Advice [facility] Specialty [address] [address] Mikki Blevins MD [facility] [place] [address] Social History Tobacco Use Types Packs/Day Years Used Date Smoking Tobacco: Never Smokeless Tobacco: Never Alcohol Use Standard Drinks/Week Comments Yes 0 (1 standard drink = 0.6 oz pur e alcohol) rare PHQ-2 Answer Date Recorded PHQ-2 Score 0 02/26/2020 Sex and Gender Information Value Date Recorded Sex Assigned at Female 03/04/2020 12:33 PM KENNEL HAND Gender Identity Female 03/04/2020 12:33 PM KENNEL HAND Sexual Orientation Straight 03/04/2020 12 :33 PM KENNEL HAND documented as of this encounter Miscellaneous Notes * Telephone Encounter - Radha Fernandez RN - 08/06/2021 8:40 AM CDT documented in this encounter Plan of Treatment Not on file documented as of this encounter Visit Diagnoses Not on filedocumented in this encounter Additional Health Concerns Assessment Noted Time PHQ-9 Depression Total Score: 0 02/26/20 20 1:30 PM KENNEL HAND documented as of this encounter Care Teams Thermodynamicist Relationship Specialty Start Date End Date Nikita Gamble MD [address] [place] [address] PCP - General Family Medicine 05/26/[address] [place] [address] Sole Inker Dietitian, Registered 05/25/18 [place] [address] [place] [address] Assigned PCP 11/16/20 12/18/23 Mikki Blevins MD [address] [place] [address] Endocrinology, Diabetes, and Metabolism 05/07/21 [place] [address] Assigned Endocrinology Provider 08/02/21 01/28/23 Mindi Llanes PA-C [address] [address] Assigned Surgical Provider 09/26/21 08/17/23 documented as of this encounter
--- OUTSIDE RECORDS SUMMARY | 2023-12-29 00:41 | XMS_ITS | Encounter Summary ---
Author Organization [place] Address [address] [place] [address]. [place] [address] Care Team Providers Care Motor Vehicle Assembly Supervisor Name Role Phone StuartJocelyn desouza Bran YANEZ Unavailable [phone] Nikita Gamble MD Primary Care Provider Naveen Casiano MD Unavailable [phone] Mikki Blevins MD Unavailable [phone] Mikki Blevins MD Unavailable [phone] Mindi Llanes PA-C Unavailable [phone] Encounter Details Date Type Department Care Team (Late st Contact Info) Description 09/16/2021 [facility] Medical Advice [facility] Specialty [address] [address] Mikki Blevins MD [place] [address] Social History Tobacco Use Types Packs/Day Years Used Date Smoking Tobacco: Never Smokeless Tobacco: Never Alcohol Use Standard Drinks/Week Comments Yes 0 (1 standard drink = 0.6 oz pur e alcohol) rare PHQ-2 Answer Date Recorded PHQ-2 Score 0 02/26/2020 Sex and Gender Information Value Date Recorded Sex Assigned at Female 03/04/2020 12:33 PM CUSTOMS ENTRY WRITER Gender Identity Female 03/04/2020 12:33 PM CUSTOMS ENTRY WRITER Sexual Orientation Straight 03/04/2020 12 :33 PM CUSTOMS ENTRY WRITER documented as of this encounter Plan of Treatment Not on file documented as of this encounter Visit Diagnoses Not on filedocumented in this encounter Additional Health Concerns Assessment Noted Time PHQ-9 Depression Total Score: 0 02/26/20 20 1:30 PM CUSTOMS ENTRY WRITER documented as of this encounter Care Teams Motor Vehicle Assembly Supervisor Relationship Specialty Start Date End Date Nikita Gamble MD [address] [place] [address] PCP - General Family Medicine 05/26/[address] [place] [address] [place] [address] Neurology Director Dietitian, Registered 05/25/18 [place] [address] [place] [address] Assigned PCP 11/16/20 12/18/23 Mikki Blevins MD [address] [place] [address] Endocrinology, Diabetes, and Metabolism 05/07/21 [place] [address] Assigned Endocrinology Provider 08/02/21 01/28/23 Mindi Llanes PA-C [address] [facility] [address] [place] [address] Assigned Surgical Provider 09/26/21 08/17/23 documented as of this encounter
--- OUTSIDE RECORDS SUMMARY | 2023-12-29 00:41 | XMS_ITS | Encounter Summary ---
Author Organization [place] Address [address] [place] [address]. [place] [address] Care Team Providers Care Log Rafter Name Role Phone Annette Alvarez Mabel ALVAREZ RAILROAD FIRER/FIREMAN Unavailable Jocelyn Davidson RD Unavailable [phone] Tamar Murphy APRN RAILROAD FIRER/FIREMAN Unavailable [phone] Nikita Gamble MD Primary Care Provider Naveen Casiano MD Unavailable [phone] Harlan Lin MD Unavailable Milagro vailable Mikki Blevins MD Unavailable [phone] Mikki Blevins MD Unavailable [phone] Mindi LlanesC Unavailable [phone] Encounter Details Date Type Department Care Team (Late st Contact Info) Description 09/06/[address] [facility] Medical Advice [facility] [address] [facility] [address] [place] [address] Jocelyn Davidson, [facility] [address] Social History Tobacco Use Types Packs/Day Years Used Date Smoking Tobacco: Never Smokeless Tobacco: Never Alcohol Use Standard Drinks/Week Comments Yes 0 (1 standard drink = 0.6 oz pur e alcohol) rare PHQ-2 Answer Date Recorded PHQ-2 Score 0 02/26/2020 Sex and Gender Information Value Date Recorded Sex Assigned at Female 03/04/2020 12:33 PM WELDER HELPER Gender Identity Female 03/04/2020 12:33 PM WELDER HELPER Sexual Orientation Straight 03/04/2020 12 :33 PM WELDER HELPER documented as of this encounter Miscellaneous Notes * Telephone Encounter - Naveen Casiano MD - 09/08/2020 12:23 PM CDT Care everywhere from [place] next visit Naveen Casiano MD * Telephone Encounter - Corina Escobar RD - 09/08/2020 11:07 AM CDT Forwarded [employer] message to Tamar Murphy, who I believe was the intended recipient. Corina Escobar RD, LD, CDE documented in this encounter Plan of Treatment Not on file documented as of this encounter Visit Diagnoses Not on filedocumented in this encounter Additional Health Concerns Assessment Noted Time PHQ-9 Depression Total Score: 0 02/26/20 20 1:30 PM WELDER HELPER documented as of this encounter Care Teams Log Rafter Relationship Specialty Start Date End Date Nikita Gamble MD [address] [place] [address] PCP - General Family Medicine 05/26/20 Annette Alvarez APRN RAILROAD FIRER/FIREMAN [address] [place] [address] Nurse Practitioner Clinical Nurse Specialist 03/22/17 10/21/[address] [place] [address] Talent Program Manager Dietitian, Registered 05/25/18 Tamar Murphy APRN RAILROAD FIRER/FIREMAN [address] [place] [phone] Assigned PCP 02/08/20 11/15/20 [place] [address] [place] [address] Assigned PCP 11/16/20 12/18/23 Harlan Lin MD NO INFO AVAILABLE Assigned Endocrinology Provider 12/07/20 08/01/21 Mikki Blevins MD [address] [place] [address] Endocrinology, Diabetes, and Metabolism 05/07/21 Mikki Blevins MD [facility] [place] [address] Assigned Endocrinology Provider 08/02/21 01/28/23 Mindi Llanes PA-C [address] [place] [address] Assigned Surgical Provider 09/26/21 08/17/23 documented as of this encounter
--- OUTSIDE RECORDS SUMMARY | 2023-12-29 00:41 | XMS_ITS | Encounter Summary ---
Author Organization [facility] Address [address] [place] [address]. [place] [address] Care Team Providers Care Rn House Supervisor Name Role Phone StuartJocelyn desouza Bran YANEZ Unavailable [phone] Nikita Gamble MD Primary Care Provider Naveen Casiano MD Unavailable [phone] Mikki Blevins MD Unavailable [phone] Mikki Blevins MD Unavailable [phone] Mindi Llanes PA-C Unavailable [phone] Reason for Visit * Reason Onset Date Comments Medication Question 09/14/2021 OZEMPIC Encounter Details Date Type Department Care Team (Late st Contact Info) Description 09/14/2021 Telephone [facility] Specialty [address] [place] [address] Mikki Blevins MD [place] [address] Medication Question (OZEMPIC) Social History Tobacco Use Types Packs/Day Years Used Date Smoking Tobacco: Never Smokeless Tobacco: Never Alcohol Use Standard Drinks/Week Comments Yes 0 (1 standard drink = 0.6 oz pur e alcohol) rare PHQ-2 Answer Date Recorded PHQ-2 Score 0 02/26/2020 Sex and Gender Information Value Date Recorded Sex Assigned at Female 03/04/2020 12:33 PM PRIMER PRESS OPERATOR Gender Identity Female 03/04/2020 12:33 PM PRIMER PRESS OPERATOR Sexual Orientation Straight 03/04/2020 12 :33 PM PRIMER PRESS OPERATOR documented as of this encounter Miscellaneous Notes * Telephone Encounter - Liberty Rader - 09/14/2021 4:43 PM CDT [facility] Phone Message May a detailed message be left on voicemail: yes Reason for Call: Medication Question or concern regarding medication Prescription Clarification Name of Medication: OZEMPIC Prescribing Provider: Felicity Pharmacy: [id number] [place] [address] What on the order needs clarification? Pt [...] Depression Total Score: 0 02/26/20 1:30 PM PRIMER PRESS OPERATOR documented as of this encounter Care Teams Rn House Supervisor Relationship Specialty Start Date End Date Nikita Gamble MD [place] [address] [place] [address] PCP - General Family Medicine 05/26/[address] [facility] [place] [address] Doughnut Fryer Dietitian, Registered 05/25/18 [place] [address] [place] [address] Assigned PCP 11/16/20 12/18/23 Mikki Blevins MD [address] [place] [address] Endocrinology, Diabetes, and Metabolism 05/07/21 [place] [address] Assigned Endocrinology Provider 08/02/21 01/28/23 Mindi Llanes PA-C [address] [place] [address] Assigned Surgical Provider 09/26/21 08/17/23 documented as of this encounter
--- OUTSIDE RECORDS SUMMARY | 2023-12-29 00:41 | XMS_ITS | Encounter Summary ---
Author Organization [place] Address [address] [place] [address]. [place] [address] Care Team Providers Care Classer Name Role Phone Antonio Annette Monroe APRN SANDING MACHINE OPERATOR Unavailable Goran Lloyd MD Primary Care Provider [phone] Unavailable [phone] Tamar Murphy APRN SANDING MACHINE OPERATOR Unavailable Nikita Gamble MD Primary Care Provider [phone] Naveen Casiano MD Unavailable [phone] Harlan Lin MD Unavailable Milagro vailable Mikki Blevins MD Unavailable [phone] Mikki Blevins MD Unavailable [phone] Mindi Llanes PA-C Unavailable [phone] Encounter Details Date Type Department Care Team (Late st Contact Info) Description 06/29/2018 [facility] Medical Advice [address] [address] Mimi Cyr CMA Social History Tobacco Use Types Packs/Day Years Used Date Smoking Tobacco: Never Smokeless Tobacco: Never Alcohol Use Standard Drinks/Week Comments Yes 0 (1 standard drink = 0.6 oz pur e alcohol) rare Sex and Gender Information Value Date Recorded Sex Assigned at Female 03/04/2020 12:33 PM MARKETING EDUCATION TEACHER Gender Identity Female 03/04/2020 12:33 PM MARKETING EDUCATION TEACHER Sexual Orientation Straight 03/04/2020 12 :33 PM MARKETING EDUCATION TEACHER documented as of this encounter Plan of Treatment Not on file documented as of this encounter Visit Diagnoses Not on filedocumented in this encounter Additional Health Concerns Infection Onset Date Last Indicated Resolved Time Rule Out COVID-19 02/26/2020 02/26/2020 02/27/2020 4:32 PM MARKETING EDUCATION TEACHER documented as of this encounter Care Teams Classer Relationship Specialty [place] [address] [place] [address] PCP - General Family Practice 12/29/17 05/21/20 Nikita Gamble MD [address] [place] [phone] PCP - General Family Medicine 05/26/20 Annette Alvarez APRN SANDING MACHINE OPERATOR [address] [place], [place] [id number] Nurse Practitioner Clinical Nurse Specialist 03/22/17 10/21/[address] [place] [id number] Mobile Disc Jockey Dietitian, Registered 05/25/18 Tamar Murphy APRN SANDING MACHINE OPERATOR [address] [place] [phone] Assigned PCP 02/08/20 11/15/20 [place] [address] [place], [place] [address] Assigned PCP 11/16/20 12/18/23 Harlan Lin MD NO INFO AVAILABLE Assigned Endocrinology Provider 12/07/20 08/01/21 Mikki Blevins MD [address] [place] [address] Endocrinology, Diabetes, and Metabolism 05/07/21 [place] [address] Assigned Endocrinology Provider 08/02/21 01/28/23 Mindi Llanes PA-C [address] [place] [address] Assigned Surgical Provider 09/26/21 08/17/23 documented as of this encounter
--- OUTSIDE RECORDS SUMMARY | 2023-12-29 00:41 | XMS_ITS | Encounter Summary ---
Author Organization [facility] Address [address] [place] [address]. [place] [address] Care Team Providers Care General Internist And Physician Leader Name Role Phone Annette Alvarez APRN WAREHOUSE RECORD CLERK Unavailable [phone] Unavailable [phone] Tamar Murphy APRN WAREHOUSE RECORD CLERK Unavailable Nikita Gamble MD Primary Care Provider Naveen Casiano MD Unavailable [phone] Harlan Lin MD Unavailable Milagro vailable Mikki Blevins MD Unavailable [phone] Mikki Blevins MD Unavailable [phone] Mindi Llanes PA-C Unavailable [phone] Reason for Visit * Reason Comments Medication Refill Encounter Details Date Type Department Care Team (Late st Contact Info) Description 06/05/2020 Refill [facility] [address] [place] [address] Annette Alvarez APRN WAREHOUSE RECORD CLERK [address] [place], [place] [id number] Medication Refill Social History Tobacco Use Types Packs/Day Years Used Date Smoking Tobacco: Never Smokeless Tobacco: Never Alcohol Use Standard Drinks/Week Comments Yes 0 (1 standard drink = 0.6 oz pur e alcohol) rare PHQ-2 Answer Date Recorded PHQ-2 Score 0 02/26/2020 Sex and Gender Information Value Date Recorded Sex Assigned at Female 03/04/2020 12:33 PM POWER BRAKE REBUILDER Gender Identity Female 03/04/2020 12:33 PM POWER BRAKE REBUILDER Sexual Orientation Straight 03/04/2020 12 :33 PM POWER BRAKE REBUILDER documented as of this encounter Miscellaneous Notes * Telephone Encounter - Jasmyn Lee RN - 06/05/2020 11:52 AM POWER BRAKE REBUILDER Prescription approved per [facility] Refill Protocol. Jasmyn Lee RN [facility] -- Triage Nurse R BRAKE REBUILDER documented in this encounter Plan of Treatment Not on file documented as of this encounter Visit Diagnoses Diagnosis Hypothyroidism due to acquired atrophy of thyroid documented in this encounter Additional Health Concerns Assessment Noted Time PHQ-9 Depression Total Score: 0 02/26/20 20 1:30 PM POWER BRAKE REBUILDER documented as of this encounter Care Teams General Internist And Physician Leader Relationship Specialty Start Date End Date Nikita Gamble MD [address] [place] [phone] PCP - General Family Medicine 05/26/20 Annette Alvarez APRN WAREHOUSE RECORD CLERK [address] [place] [address] Nurse Practitioner Clinical Nurse Specialist 03/22/17 10/21/[address] [facility] [address] [place] [address] Cash Register Servicer Dietitian, Registered 05/25/18 Tamar Murphy APRN WAREHOUSE RECORD CLERK [address] [place] [phone] Assigned PCP 02/08/20 11/15/20 [place] [address] [place] [address] Assigned PCP 11/16/20 12/18/23 Harlan Lin MD NO INFO AVAILABLE Assigned Endocrinology Provider 12/07/20 08/01/21 Mikki Blevins MD [address] [place] [address] Endocrinology, Diabetes, and Metabolism 05/07/21 [place] [address] Assigned Endocrinology Provider 08/02/21 01/28/23 Mindi Llanes PA-C [address] [place] [address] Assigned Surgical Provider 09/26/21 08/17/23 documented as of this encounter
--- OUTSIDE RECORDS SUMMARY | 2023-12-29 00:41 | XMS_ITS | Encounter Summary ---
Author Organization [facility] Address [address] [place] [address]. [place] [address] Care Team Providers Care Thermoforming Machine Operator Name Role Phone Jocelyn Davidson RENATA Unavailable [phone] Nikita Gamble MD Primary Care Provider [phone] Naveen Casiano MD Unavailable [phone] Harlan Lin MD Unavailable Milagro vailable Mikki Blevins MD Unavailable [phone] Mikki Blevins MD Unavailable [phone] Mindi Llanes PA-C Unavailable [phone] Reason for Visit * Reason Onset Date Comments Diabetes Education 12/05/2020 Encounter Details Date Type Department Care Team (Late st Contact Info) Description 12/05/2020 Telephone [facility] Endocrinology [address] [place] [phone] Harlan Lin MD NO INFO AVAILABLE Diabetes Education Social History Tobacco Use Types Packs/Day Years Used Date Smoking Tobacco: Never Smokeless Tobacco: Never Alcohol Use Standard Drinks/Week Comments Yes 0 (1 standard drink = 0.6 oz pur e alcohol) rare PHQ-2 Answer Date Recorded PHQ-2 Score 0 02/26/2020 Sex and Gender Information Value Date Recorded Sex Assigned at Female 03/04/2020 12:33 PM WAFER FABRICATION OPERATOR Gender Identity Female 03/04/2020 12:33 PM WAFER FABRICATION OPERATOR Sexual Orientation Straight 03/04/2020 12 :33 PM WAFER FABRICATION OPERATOR COVID-19 Exposure Response Date Recorded In [...] outreach attempt within 1 week. Hernando Gray [facility] Scheduling documented in this encounter Plan of Treatment Not on file documented as of this encounter Visit Diagnoses Not on filedocumented in this encounter Additional Health Concerns Assessment Noted Time PHQ-9 Depression Total Score: 0 02/26/20 20 1:30 PM WAFER FABRICATION OPERATOR documented as of this encounter Care Teams Thermoforming Machine Operator Relationship Specialty Start Date End Date Nikita Gamble MD [address] [place] [address] PCP - General Family Medicine 05/26/[address] [place] [address] Prison Officer Dietitian, Registered 05/25/18 [place] [address] [place] [address] Assigned PCP 11/16/20 12/18/23 Harlan Lin MD NO INFO AVAILABLE Assigned Endocrinology Provider 12/07/20 08/01/21 Mikki Blevins MD [address] [place] [address] Endocrinology, Diabetes, and Metabolism 05/07/21 [place] [address] Assigned Endocrinology Provider 08/02/21 01/28/23 Mindi Llanes PA-C [address] [place] [address] Assigned Surgical Provider 09/26/21 08/17/23 documented as of this encounter
--- OUTSIDE RECORDS SUMMARY | 2023-12-29 00:41 | XMS_ITS | Encounter Summary ---
Author Organization [facility] Address [address] [place] [address]. [place] [address] Care Team Providers Care Ball Points Inspector Name Role Phone Antonio Annette Monroe APRN DATA ENTRY ANALYST Unavailable Goran Lloyd MD Primary Care Provider [phone] Unavailable [phone] Tamar Murphy APRN DATA ENTRY ANALYST Unavailable Nikita Gamble MD Primary Care Provider Naveen Casiano MD Unavailable [phone] Harlan Lin MD Unavailable Milagro vailable Mikki Blevins MD Unavailable [phone] Mikki Blevins MD Unavailable [phone] Mindi Llanes PA-C Unavailable [phone] Encounter Details Date Type Department Care Team (Late st Contact Info) Description 10/17/2018 [facility] [address] [address] Ashok Bella, RN Social History Tobacco Use Types Packs/Day Years Used Date Smoking Tobacco: Never Smokeless Tobacco: Never Alcohol Use Standard Drinks/Week Comments Yes 0 (1 standard drink = 0.6 oz pur e alcohol) rare Sex and Gender Information Value Date Recorded Sex Assigned at Female 03/04/2020 12:33 PM DRYING RACK CHANGER Gender Identity Female 03/04/2020 12:33 PM DRYING RACK CHANGER Sexual Orientation Straight 03/04/2020 12 :33 PM DRYING RACK CHANGER documented as of this encounter Plan of Treatment Not on file documented as of this encounter Visit Diagnoses Not on filedocumented in this encounter Additional Health Concerns Infection Onset Date Last Indicated Resolved Time Rule Out COVID-19 02/26/2020 02/26/2020 02/27/2020 4:32 PM DRYING RACK CHANGER documented as of this encounter Care Teams Ball Points Inspector Relationship Specialty [place] [address] [place], [place] [id number] PCP - General Family Practice 12/29/17 05/21/20 Nikita Gamble MD [address] [place] [id number] PCP - General Family Medicine 05/26/20 Annette Alvarez APRN DATA ENTRY ANALYST [address] [place], [place] [id number] Nurse Practitioner Clinical Nurse Specialist 03/22/17 10/21/[address] [place] [id number] Cad Manager Dietitian, Registered 05/25/18 Tamar Murphy APRN DATA ENTRY ANALYST [address] [place] [phone] Assigned PCP 02/08/20 11/15/20 [place] [address] [place], [place] [id number] Assigned PCP 11/16/20 12/18/23 Harlan Lin MD NO INFO AVAILABLE Assigned Endocrinology Provider 12/07/20 08/01/21 Mikki Blevins MD [address] [place] [address] Endocrinology, Diabetes, and Metabolism 05/07/21 [place] [address] Assigned Endocrinology Provider 08/02/21 01/28/23 Mindi Llanes PA-C [address] [place] [address] Assigned Surgical Provider 09/26/21 08/17/23 documented as of this encounter
--- OUTSIDE RECORDS SUMMARY | 2023-12-29 00:41 | XMS_ITS | Encounter Summary ---
Author Organization [facility] Address [address] [place] [address]. [place] [address] Care Team Providers Care Precast Concrete Products Installer Name Role Phone Antonio Annette Monroe APRN AIR QUALITY MANAGER Unavailable Goran Lloyd MD Primary Care Provider Jocelyn Davidson RD Unavailable [phone] Tamar Murphy APRN AIR QUALITY MANAGER Unavailable Nikita Gamble MD Primary Care Provider Naveen Casiano MD Unavailable [phone] Harlan Lin MD Unavailable Milagro vailable Mikki Blevins MD Unavailable [phone] Mikki Blevins MD Unavailable [phone] Mindi Llanes PA-C Unavailable [phone] Encounter Details Date Type Department Care Team (Late st Contact Info) Description 07/05/2018 [facility] Medical Advice [facility] [address] [facility] [address] [place] [address] Jocelyn Davidson, RD [address] [place] [address] Social History Tobacco Use Types Packs/Day Years Used Date Smoking Tobacco: Never Smokeless Tobacco: Never Alcohol Use Standard Drinks/Week Comments Yes 0 (1 standard drink = 0.6 oz pur e alcohol) rare Sex and Gender Information Value Date Recorded Sex Assigned at Female 03/04/2020 12:33 PM BURNING MACHINE OPERATOR Gender Identity Female 03/04/2020 12:33 PM BURNING MACHINE OPERATOR Sexual Orientation Straight 03/04/2020 12 :33 PM BURNING MACHINE OPERATOR documented as of this encounter Plan of Treatment Not on file documented as of this encounter Visit Diagnoses Not on filedocumented in this encounter Additional Health Concerns Infection Onset Date Last Indicated Resolved Time Rule Out COVID-19 02/26/2020 02/26/2020 02/27/2020 4:32 PM BURNING MACHINE OPERATOR documented as of this encounter Care Teams Precast Concrete Products Installer Relationship Specialty [place] [address] [place] [address] PCP - General Family Practice 12/29/17 05/21/20 Nikita Gamble MD [address] [place] [address] PCP - General Family Medicine 05/26/20 Annette Alvarez APRN AIR QUALITY MANAGER [address] [place] [address] Nurse Practitioner Clinical Nurse Specialist 03/22/17 10/21/[address] [place] [address] High Speed Operator Dietitian, Registered 05/25/18 Tamar Murphy APRN AIR QUALITY MANAGER [address] [place] [phone] Assigned PCP 02/08/20 11/15/20 [place] [address] [place] [address] Assigned PCP 11/16/20 12/18/23 Harlan Lin MD NO INFO AVAILABLE Assigned Endocrinology Provider 12/07/20 08/01/21 Mikki Blevins MD [address] [place] [address] Endocrinology, Diabetes, and Metabolism 05/07/21 Mikki Blevins MD [facility] [address] Assigned Endocrinology Provider 08/02/21 01/28/23 Mindi Llanes PA-C [address] [place] [address] Assigned Surgical Provider 09/26/21 08/17/23 documented as of this encounter
--- OUTSIDE RECORDS SUMMARY | 2023-12-29 00:41 | XMS_ITS | Encounter Summary ---
Author Organization [facility] Address [address] [place] [address]. [place] [address] Care Team Providers Care Dispatcher Electric Power Name Role Phone Annette Alvarez Mabel ALVAREZ DIRECTOR PEDIATRIC Unavailable Goran Lloyd MD Primary Care Provider [phone] Unavailable [phone] Tamar Murphy APRN DIRECTOR PEDIATRIC Unavailable [phone] Nikita Gamble MD Primary Care Provider Naveen Casiano MD Unavailable [phone] Harlan Lin MD Unavailable Milagro vailable Mikki Blevins MD Unavailable [phone] Mikki Blevins MD Unavailable [phone] Mindi Llanes PA-C Unavailable [phone] Encounter Details Date Type Department Care Team (Late st Contact Info) Description 09/01/2018 [facility] [address] [address] Jocelyn Davidson, RENATA [address] [place] [address] Social History Tobacco Use Types Packs/Day Years Used Date Smoking Tobacco: Never Smokeless Tobacco: Never Alcohol Use Standard Drinks/Week Comments Yes 0 (1 standard drink = 0.6 oz pur e alcohol) rare Sex and Gender Information Value Date Recorded Sex Assigned at Female 03/04/2020 12:33 PM CORRESPONDENCE DICTATOR Gender Identity Female 03/04/2020 12:33 PM CORRESPONDENCE DICTATOR Sexual Orientation Straight 03/04/2020 12 :33 PM CORRESPONDENCE DICTATOR documented as of this encounter Plan of Treatment Not on file documented as of this encounter Visit Diagnoses Not on filedocumented in this encounter Additional Health Concerns Infection Onset Date Last Indicated Resolved Time Rule Out COVID-19 02/26/2020 02/26/2020 02/27/2020 4:32 PM CORRESPONDENCE DICTATOR documented as of this encounter Care Teams Dispatcher Electric Power Relationship Specialty [place] [address] [place], [place] [phone] PCP - General Family Practice 12/29/17 05/21/20 Nikita Gamble MD [address] [place] [phone] PCP - General Family Medicine 05/26/20 Annette Alvarez APRN DIRECTOR PEDIATRIC [address] [place], [place] [phone] Nurse Practitioner Clinical Nurse Specialist 03/22/17 10/21/[address] [place] [address] Real Estate Services Coordinator Dietitian, Registered 05/25/18 Tamar Murphy APRN DIRECTOR PEDIATRIC [address] [place] [phone] Assigned PCP 02/08/20 11/15/20 [place] [address] [place] [address] Assigned PCP 11/16/20 12/18/23 Harlan Lin MD NO INFO AVAILABLE Assigned Endocrinology Provider 12/07/20 08/01/21 Mikki Blevins MD [address] [place] [address] Endocrinology, Diabetes, and Metabolism 05/07/21 Mikki Blevins MD [facility] [place] [address] Assigned Endocrinology Provider 08/02/21 01/28/23 Mindi Llanes PA-C [address] [place] [address] Assigned Surgical Provider 09/26/21 08/17/23 documented as of this encounter
--- OUTSIDE RECORDS SUMMARY | 2023-12-29 00:41 | XMS_ITS | Encounter Summary ---
Author Organization [facility] Address [address] [place] [address]. [place] [address] Care Team Providers Care Oil Field Roustabout Name Role Phone Antonio Annette Monroe APRN ADJUNCT HISTORY INSTRUCTOR Unavailable [phone] Goran Lloyd MD Primary Care Provider Jocelyn Davidson RD Unavailable [phone] Tamar Murphy APRN ADJUNCT HISTORY INSTRUCTOR Unavailable Nikita Gamble MD Primary Care Provider Naveen Casiano MD Unavailable [phone] Harlan Lin MD Unavailable Milagro vailable Mikki Blevins MD Unavailable [phone] Mikki Blevins MD Unavailable [phone] Mindi Llanes PA-C Unavailable [phone] Encounter Details Date Type Department Care Team (Late st Contact Info) Description 2020 [facility] [address] [address] Tamar Murphy APRN ADJUNCT HISTORY INSTRUCTOR [address] [place] [address] Social History Tobacco Use Types Packs/Day Years Used Date Smoking Tobacco: Never Smokeless Tobacco: Never Alcohol Use Standard Drinks/Week Comments Yes 0 (1 standard drink = 0.6 oz pur e alcohol) rare PHQ-2 Answer Date Recorded PHQ-2 Score 0 02/26/2020 Sex and Gender Information Value Date Recorded Sex Assigned at Female 03/04/2020 12:33 PM SENIOR INTERIOR DESIGNER Gender Identity Female 03/04/2020 12:33 PM SENIOR INTERIOR DESIGNER Sexual Orientation Straight 03/04/2020 12 :33 PM SENIOR INTERIOR DESIGNER COVID-19 Exposure Response Date Recorded In the last month, have you been in contact with someone who was confirmed or suspected to have Coronavirus / COVID-19? No / Unsure 02/03/2020 12:21 PM SENIOR INTERIOR DESIGNER documented as of this encounter Plan of Treatment Not on file documented as of this encounter Visit Diagnoses Not on filedocumented in this encounter Additional Health Concerns Assessment Noted Time PHQ-9 Depression Total Score: 0 02/26/20 20 1:30 PM SENIOR INTERIOR DESIGNER documented as of this encounter Care Teams Oil Field Roustabout Relationship Specialty [place] [address] [place] [address] PCP - General Family Practice 12/29/17 05/21/20 Nikita Gamble MD [address] [place] [address] PCP - General Family Medicine 05/26/20 Annette Alvarez APRN ADJUNCT HISTORY INSTRUCTOR [address] [place] [address] Nurse Practitioner Clinical Nurse Specialist 03/22/17 10/21/[address] [place] [address] Police Chief Dietitian, Registered 05/25/18 Tamar Murphy APRN ADJUNCT HISTORY INSTRUCTOR [address] [place] [address] Assigned PCP 02/08/20 11/15/20 [place] [address] [place] [address] Assigned PCP 11/16/20 12/18/23 Harlan Lin MD NO INFO AVAILABLE Assigned Endocrinology Provider 12/07/20 08/01/21 Mikki Blevins MD [address] [place] [address] Endocrinology, Diabetes, and Metabolism 05/07/21 Mikki Blevins MD [place] [address] Assigned Endocrinology Provider 08/02/21 01/28/23 Mindi Llanes PA-C [address] [place] [address] Assigned Surgical Provider 09/26/21 08/17/23 documented as of this encounter
--- OUTSIDE RECORDS SUMMARY | 2023-12-29 00:41 | XMS_ITS | Encounter Summary ---
Author Organization [facility] Address [address] [place] [address]. [place] [address] Care Team Providers Care Bilingual School Psychologist Name Role Phone Jocelyn Davidson RD Unavailable [phone] Nikita Gamble MD Primary Care Provider Naveen Casiano MD Unavailable [phone] Mikki Blevins MD Unavailable [phone] Mikki Blevins MD Unavailable [phone] Mindi Llanes PA-C Unavailable [phone] Encounter Details Date Type Department Care Team (Late st Contact Info) Description 09/18/2021 My[facility] Medical Advice [facility] [address] [place] [address] Liberty Gilliam MA Social History Tobacco Use Types Packs/Day Years Used Date Smoking Tobacco: Never Smokeless Tobacco: Never Alcohol Use Standard Drinks/Week Comments Yes 0 (1 standard drink = 0.6 oz pur e alcohol) rare PHQ-2 Answer Date Recorded PHQ-2 Score 0 02/26/2020 Sex and Gender Information Value Date Recorded Sex Assigned at Female 03/04/2020 12:33 PM BULK MAIL TECHNICIAN Gender Identity Female 03/04/2020 12:33 PM BULK MAIL TECHNICIAN Sexual Orientation Straight 03/04/2020 12 :33 PM BULK MAIL TECHNICIAN documented as of this encounter Plan of Treatment Not on file documented as of this encounter Visit Diagnoses Not on filedocumented in this encounter Additional Health Concerns Assessment Noted Time PHQ-9 Depression Total Score: 0 02/26/20 20 1:30 PM BULK MAIL TECHNICIAN documented as of this encounter Care Teams Bilingual School Psychologist Relationship Specialty Start Date End Date Nikita Gamble MD [place] [address] [place] [address] PCP - General Family Medicine 05/26/20 Jocelyn Davidson, RENATA [place] [address] [place] [address] Convention Services Manager Dietitian, Registered 05/25/18 [place] [address] [place] [address] Assigned PCP 11/16/20 12/18/23 Mikki Blevins MD [address] [place] [address] Endocrinology, Diabetes, and Metabolism 05/07/21 [place] [address] Assigned Endocrinology Provider 08/02/21 01/28/23 Mindi Llanes PA-C [address] [facility] [address] [place] [address] Assigned Surgical Provider 09/26/21 08/17/23 documented as of this encounter
--- OUTSIDE RECORDS SUMMARY | 2023-12-29 00:41 | XMS_ITS | Encounter Summary ---
Author Organization [facility] Address [address] [place] [address]. [place] [address] Care Team Providers Care Jewelry Mold Maker Name Role Phone Jocelyn Davidson RENATA Unavailable [phone] Nikita Gamble MD Primary Care Provider Naveen Casiano MD Unavailable [phone] Harlan Lin MD Unavailable Milagro vailable Mikki Blevins MD Unavailable [phone] Mikki Blevins MD Unavailable [phone] Mindi Llanes PA-C Unavailable [phone] Reason for Visit * Reason Onset Date Comments Diabetes Education 12/05/2020 Encounter Details Date Type Department Care Team (Late st Contact Info) Description 12/05/2020 [facility] Advice [facility] Nurse Advisors Replaced by [facility] [place] [address] Hernando Gray Diabetes Education Social History Tobacco Use Types Packs/Day Years Used Date Smoking Tobacco: Never Smokeless Tobacco: Never Alcohol Use Standard Drinks/Week Comments Yes 0 (1 standard drink = 0.6 oz pur e alcohol) rare PHQ-2 Answer Date Recorded PHQ-2 Score 0 02/26/2020 Sex and Gender Information Value Date Recorded Sex Assigned at Female 03/04/2020 12:33 PM CYTOLOGY TEACHER Gender Identity Female 03/04/2020 12:33 PM CYTOLOGY TEACHER Sexual Orientation Straight 03/04/2020 12 :33 PM CYTOLOGY TEACHER COVID-19 Exposure Response Date Recorded In [...] back at a better time. Hernando Gray [facility] Scheduling documented in this encounter Plan of Treatment Not on file documented as of this encounter Visit Diagnoses Not on filedocumented in this encounter Additional Health Concerns Assessment Noted Time PHQ-9 Depression Total Score: 0 02/26/20 20 1:30 PM CYTOLOGY TEACHER documented as of this encounter Care Teams Jewelry Mold Maker Relationship Specialty Start Date End Date Nikita Gamble MD [address] [place] [address] PCP - General Family Medicine 05/26/[address] [place] [address] Car Filler Dietitian, Registered 05/25/18 [place] [address] [place] [address] Assigned PCP 11/16/20 12/18/23 Harlan Lin MD NO INFO AVAILABLE Assigned Endocrinology Provider 12/07/20 08/01/21 Mkiki Blevins MD [address] [place] [address] Endocrinology, Diabetes, and Metabolism 05/07/21 Mikki Blevins MD [facility] [address] Assigned Endocrinology Provider 08/02/21 01/28/23 Mindi Llanes PA-C [address] [place] [address] Assigned Surgical Provider 09/26/21 08/17/23 documented as of this encounter
--- OUTSIDE RECORDS SUMMARY | 2023-12-29 00:41 | XMS_ITS | Encounter Summary ---
Author Organization [facility] Address [address] [place] [address]. [place] [address] Care Team Providers Care Inspector Screen Printing Name Role Phone Jocelyn Davidson RENATA Unavailable [phone] Nikita Gamble MD Primary Care Provider Naveen Casiano MD Unavailable [phone] Harlan Lin MD Unavailable Milagro vailable Mikki Blevins MD Unavailable [phone] Mikki Blevins MD Unavailable [phone] Mindi Llanes PA-C Unavailable [phone] Encounter Details Date Type Department Care Team (Late st Contact Info) Description 12/02/2020 My[facility] Medical Advice [address] [phone] Tamar Tristan Social History Tobacco Use Types Packs/Day Years Used Date Smoking Tobacco: Never Smokeless Tobacco: Never Alcohol Use Standard Drinks/Week Comments Yes 0 (1 standard drink = 0.6 oz pur e alcohol) rare PHQ-2 Answer Date Recorded PHQ-2 Score 0 02/26/2020 Sex and Gender Information Value Date Recorded Sex Assigned at Female 03/04/2020 12:33 PM SENIOR ADVISORY Gender Identity Female 03/04/2020 12:33 PM SENIOR ADVISORY Sexual Orientation Straight 03/04/2020 12 :33 PM SENIOR ADVISORY COVID-19 Exposure Response Date Recorded In the [...] Score: 0 02/26/20 20 1:30 PM SENIOR ADVISORY documented as of this encounter Care Teams Inspector Screen Printing Relationship Specialty Start Date End Date Nikita Gamble MD [place] [address] [place] [address] PCP - General Family Medicine 05/26/[address] [place] [address] Pmp Project Manager Dietitian, Registered 05/25/18 [place] [address] [place] [address] Assigned PCP 11/16/20 12/18/23 Harlan Lin MD NO INFO AVAILABLE Assigned Endocrinology Provider 12/07/20 08/01/21 Mikki Blevins MD [address] [place] [address] Endocrinology, Diabetes, and Metabolism 05/07/21 [place] [address] Assigned Endocrinology Provider 08/02/21 01/28/23 Mindi Llanes PA-C [address] [place] [address] [place] [address] Assigned Surgical Provider 09/26/21 08/17/23 documented as of this encounter
--- OUTSIDE RECORDS SUMMARY | 2023-12-29 00:42 | XMS_ITS | Encounter Summary ---
Author Organization [facility] Address [address] [place] [address]. [place] [address] Care Team Providers Care Databases Software Consultant Name Role Phone Antonio Annette Monroe APRN PHARMACY AFFAIRS ASSISTANT Unavailable Goran Lloyd MD Primary Care Provider Jocelyn Davidson RD Unavailable [phone] Tamar Murphy APRN PHARMACY AFFAIRS ASSISTANT Unavailable Nikita Gamble MD Primary Care Provider Naveen Casiano MD Unavailable [phone] Harlan Lin MD Unavailable Milagro vailable Mikki Blevins MD Unavailable [phone] Mikki Blevins MD Unavailable [phone] Mindi Llanes PA-C Unavailable [phone] Encounter Details Date Type Department Care Team (Late st Contact Info) Description 05/26/2018 [facility] [address] [address] [place] [address] Social History Tobacco Use Types Packs/Day Years Used Date Smoking Tobacco: Never Smokeless Tobacco: Never Alcohol Use Standard Drinks/Week Comments Yes 0 (1 standard drink = 0.6 oz pur e alcohol) rare Sex and Gender Information Value Date Recorded Sex Assigned at Female 03/04/2020 12:33 PM UMBRELLA CUTTER Gender Identity Female 03/04/2020 12:33 PM UMBRELLA CUTTER Sexual Orientation Straight 03/04/2020 12 :33 PM UMBRELLA CUTTER documented as of this encounter Plan of Treatment Not on file documented as of this encounter Visit Diagnoses Not on filedocumented in this encounter Additional Health Concerns Infection Onset Date Last Indicated Resolved Time Rule Out COVID-19 02/26/2020 02/26/2020 02/27/2020 4:32 PM UMBRELLA CUTTER documented as of this encounter Care Teams Databases Software Consultant Relationship Specialty [place] [address] [place] [address] PCP - General Family Practice 12/29/17 05/21/20 Nikita Gamble MD [address] [place] [id number] PCP - General Family Medicine 05/26/20 Annette Alvarez APRN PHARMACY AFFAIRS ASSISTANT [address] [place], [place] [id number] Nurse Practitioner Clinical Nurse Specialist 03/22/17 10/21/[address] [place] [address] Assurance Services Manager Health Care Dietitian, Registered 05/25/18 Tamar Murphy APRN PHARMACY AFFAIRS ASSISTANT [address] [place] [phone] Assigned PCP 02/08/20 11/15/20 [place] [address] [place] [address] Assigned PCP 11/16/20 12/18/23 Harlan Lin MD NO INFO AVAILABLE Assigned Endocrinology Provider 12/07/20 08/01/21 Mikki Blevins MD [address] [place] [address] Endocrinology, Diabetes, and Metabolism 05/07/21 Mikki Blevins MD [facility] [place] [address] Assigned Endocrinology Provider 08/02/21 01/28/23 Mindi Llanes PA-C [address] [place] [address] Assigned Surgical Provider 09/26/21 08/17/23 documented as of this encounter
[2023-12-29 00:53] LABS: Procalcitonin* 0.08 ng/mL (<0.50); Troponin I* < 0.01 ng/mL (0.01-0.04)
[2023-12-29] MEDS: PIPERACILLIN/TAZOBACTAM 3.375 GM in 0.9 % SODIUM CHLORIDE Mini-bag 100 ML IVPB (01:19)
[2023-12-29 01:22] LABS: Appearance Urine Clear (Clear); Bilirubin Urine Negative (Negative); Blood Urine Trace-intact (Negative); Color Urine Yellow (Yellow); Glucose Urine Negative (Negative); Ketones Urine Negative (Negative); Leukocyte Esterase Urine Trace (Negative); Nitrite Urine Negative (Negative); Protein Urine Negative (Negative); Specific Gravity Urine <= 1.005 (1.000-1.030); Urobilinogen Urine 0.2 (0.2-1.0); pH Urine 5.5 (5.0-8.5)
[2023-12-29] MEDS: VANCOMYCIN 2 GM/400 ML 2 GM/400 ML PIGGYBACK IVPB (01:26)
[2023-12-29 01:29] LABS: Bacteria Urine Few; RBC Urine 0-2 (0-2); Squamous Epithelial Cell Urine Few (None-Few); WBC Urine 0-2 (0-5)
== END 2023-12-29 01:50 | disposition short-term general hospital (02) ==
LOC: ED 12-29 00:35
PROVIDERS: Emergency Provider Family Medicine; PCP Family Medicine
DX: A41.9 Sepsis, unspecified organism (principal)
CPT/HCPCS: 36415; 70486; 71045; 71250; 74176; 80048; 80076; 81001; 81003; 82803; 83605; 84145; 84484; 85025; 87040; 87086; 93005; 94761; 96365; 96368; 96375; 99284; 99285; 99291; J2543; J3372; J7030; J7120

== ENCOUNTER 2023-12-29 01:30 | Outpatient (CLI) | payer OTHER, SELFPAY ==
--- OUTSIDE RECORDS SUMMARY | 2024-01-01 14:41 | XMS_ITS | Continuity of Care Document ---
Author Organization [facility] Address [address] [facility] [place] [address] Care Team Providers Care Catshovel Driver Name Role Phone [facility] Unavailable Unav ailable Procedures Procedure [...] Diagnoses Date Provider Providers Copied on Encounter [facility], [address] [place], [place], [id number], [facility] No Information [facility]. [address] [facility] E[place], [id number], [place]. tel:[phone] Referring Provider: Woody Michelle, [address] [facility] [place], [address]. tel:[phone] [facility], [address] [place], [place], [id number], [facility] No Information [facility]. [address] [facility] [place], [id number], [place]. tel:[phone] Referring Provider: Woody Ahn, [address] [place], [address]. tel:[phone] Family History Family Member Type Diagnosis Age At Onset No Information Payers Payer name Insurance type Covered democrat ID Gabriele tyson(s) [employer] [id number] Social History Type Description Quantity Date Captured [...]
--- OUTSIDE RECORDS SUMMARY | 2024-01-01 14:41 | XMS_ITS | Continuity of Care Document ---
Author Organization [facility] Address [address] [place] [address] Care Team Providers Care Medical Billing Representative Name Role Phone Bacilio Henderson CRNA Unavailable [...] Diagnoses Date Provider Providers Copied on Encounter [facility], [address] [place], [place], [id number], [facility] No Information 4 Santiago Ribera. [address] [place] [address], [id number] , . tel: [phone] Referring Provider: Woody Michelle, [address] [place], [address] . tel:[phone] [facility], [address] [place] [address], [id number], [facility] No Information 4 Maurice Crow. [address] [facility], [place], [place], [id number] , . tel:[phone] Referring Provider: Woody Michelle, [address] [place], [address] . tel:[phone] [facility], [address] [facility] [place], [id number], [facility] [place] No Information 3 Santiago Ribera. [address], [facility] [place], [place], [place], [id number] , . tel: [phone] Referring Provider: Woody Ahn, [address] [place] [address] [place], [address] . tel:[phone] [facility], [address] [place] [address] [place], [id number], [facility] [place] No Information 3 Marshajhon Atiya. [address] [place], [place] [address], [address], . tel: [phone] Referring Provider: Woody Michelle, [address] [place] [address], [address] . tel:[phone] [facility], [address] [place] [address] [place], [id number], [facility] No Information 3 Santiago Ribera. [address], [facility], [place], [place], [id number] , . tel: [phone] Referring Provider: Woody Michelle, [address] [place] [address], [address] . tel:[phone] Family History Family Member Type Diagnosis Age At Onset No Information Payers Payer name Insurance type Covered libertarian ID Gabriele tyson(s) [facility] [id number] Social History Type Description Quantity Date Captured [...]
--- OUTSIDE RECORDS SUMMARY | 2024-01-01 14:43 | XMS_ITS | Encounter Summary ---
Author Organization [facility] Address [address] [place] [address] Care Team Providers Care Parts Counterman Name Role Phone Nikita Gamble MD Primary Care Provider Reason for Visit * Auth/Cert (Routine) Specialty Diagnoses / Procedures Referred By Contac t Referred To Contact Diagnoses Postmenopausal bleeding . Procedures HYSTEROSCOPY WITH MYOSURE, polypectomy Referral ID Status Reason Start Date Expiration Date Visits Re quested Visits Authorized [id number] 1 1 Encounter Details Date Type Department Care Team (Late st Contact Info) Description 12/14/2023 10:00 AM CDT - 12/14/2023 11:15 AM CDT Surgery Operating Room [address] [place] [id number] Carol Phillips MD [address] [place] [address] HYSTEROSCOPY WITH TRUCLEAR, polypectomy, PAP SMEAR AND [...] is after hours call the Careline at [phone]. [facility] Surgery: Please contact your clinic during [...] Tab 3 04/30/2015 Blood Glucose Monitoring Suppl ([employer] CONTOUR MONITOR) W/DEVICE KIT kit As instructed [...] 1 diabetes mellitus with diabetic neuropathy, unspecified ([facility]) Use for continuous glucose monitoring. Change [...] by mouth two times a day. rizatriptan ([employer]SYSTEM ARCHITECT) 10 MG disintegrating tablet Take 1 Tablet [...] Care Team (Late st Contact Info) Description 01/09/2024 1:15 PM CDT [facility] UroGynecology [address] [place], [place] [id number] Candice Coates MD [address] [facility] [address] [place], [place] [phone] documented as of this encounter Procedures Procedure Name Priority Date/Time Associated Diagnosis Comments SURGICAL PATHOLOGY Routine 12/14/2023 11 :04 AM CDT Postmenopausal bleeding PAP TEST Routine 12/14/2023 10:52 AM CDT HPV WITH 16 18 GENOTYPING, CERVICAL/ENDOCERVICAL Routine 12/14/2023 10:52 AM CDT HYSTEROSCOPY WITH TRUCLEAR 12/14/2023 9:56 AM CDT Postmenopausal bleeding GLUCOSE, WHOLE BLOOD POCT Routine 12/14/2023 9:03 AM CDT documented in this encounter Results * Surgical Path (12/14/2023 11:04 AM CDT) Case Report Surgical Pathology ?Case: [id number] ? Authorizing Provider: ??Carol Phillips MD ?Collected: ? 12/14/2023 1104 ? Ordering Location: ? [facility] Operating Room ?Received: ?12/14/2023 1132 ? Pathologist: ? Joann Mckeon MD ? Specimens: ?? A) - Labia, left, Left superior labial biopsy ? B) - Vulva, Left vestibule ? C) - Uterus, Endometrial currettings ? 12/22/2023 1:37 PM [facility] FINAL DIAGNOSIS A. Skin, Labia, left superior, [...] Clinical correlation is recommended. 12/22/2023 1:37 PM [facility] Clinical Information Postmenopausal bleeding 12/22/2023 1:37 PM [facility] Microscopic Description A. Microscopic examination including multiple deeper recut sections is performed. B/C. Microscopic examination is performed. 12/22/2023 1:37 PM [facility] Special Stains The stain controls have been reviewed and stain appropriately. 12/22/2023 1:37 PM [facility] Gross Description A: The specimen is received [...] in 1 cassette. TK 12/22/2023 1:37 PM [facility] Embedded Images 12/22/2023 1:37 PM [facility] Tissue GENITAL LABIUM STRUCTURE / Unknown 12/14/2023 11:04 AM CDT 12/14/2023 11:32 AM CDT Tissue specimen (specimen) VULVAL STRUCTURE / Unknown 12/14/2023 11:09 AM CDT 12/14/2023 11:32 AM CDT Tissue specimen (specimen) UTERINE STRUCTURE / Unknown 12/14/2023 11:16 AM CDT 12/14/2023 11:32 AM CDT Carol Phillips MD LAB PATHOLOGY [address] [address], [facility] * HPV Genotyping PCR (Cervical/Endocervical ONLY) (12/14/2023 10:52 AM CDT) HPV High Risk Type 16 PCR Not Detected Not detected 12/29/2023 12:08 PM CDT [facility] HPV High Risk Type 18 PCR Not Detected Not Detected 12/29/2023 12:08 PM CDT [facility] HPV High Risk Other Than 16/18 Not Detected Not detected 12/29/2023 12:08 PM CDT [facility] Cervical Broom ENTIRE ENDOCERVIX / Unknown 12/14/2023 10:52 AM CDT 12/14/2023 10:57 AM CDT [facility] - 12/29/2023 12:08 PM CDT The Robbie HPV test is a qualitative in vitro test for the detection of Human Papillomavirus in SurePath patient specimens. The test utilizes amplification of target DNA by Polymerase Chain Reaction (PCR) and nucleic acid hybridization for the detection of 14 high-risk (HR) HPV types. The assay tests for high risk types (16, 18, 31, 33, 35, 39, 45, 51, 52, 56, 58, 59, 66, and 68). Carol Phillips MD LAB_1 Performing Organization Address City/State/[facility] Co de Phone Number [address] [address], [facility] * PAP Test (12/14/2023 10:52 AM CDT) Case Report Pap ? Case: [id number] ? Authorizing Provider: ??Carol Phillips MD ?Collected: ? 12/14/2023 1052 ? Ordering Location: ? Operating Room ?Received: ?12/14/2023 1155 ? First Screen: ?Laurita Browne CT ? (ASCP) ? Specimen: ?Pap Test, Routine, Cervix/Endocervix ? 12/29/2023 12:08 PM [facility] Pap Specimen Adequacy Satisfactory for evaluation, endocervical/herrera sformation zone component present. 12/29/2023 12:08 PM [facility] Pap Interpretation (NILM) Negative for intraepithelial lesion or malignancy. 12/29/2023 12:08 PM [facility] Pap Disclaimer The Pap test is a screening test to aid in the detection of cervical and vaginal cancers and their precursor lesions. It is not a diagnostic procedure and should not be used as the sole means of detecting malignancy. Both false-positive and false-negative results may occur. 12/29/2023 12:08 PM [facility] Gross Description The specimen is received in SurePath fixative and properly labeled. 1 Pap-stained SurePath slide is prepared. 12/29/2023 12:08 PM [facility] Embedded Images 12:08 PM [facility] Other Specimen Type ENTIRE ENDOCERVIX / Unknown 12/14/2023 10:52 AM CDT 12/14/2023 11:55 AM CDT Comment:LMP: No LMP recorded . Patient is postmenopausal. Carol Phillips MD LAB PATHOLOGY [address] * Glucose, Whole Blood POCT (12/14/2023 9:03 AM CDT) Glucose, Whole Blood 174 70 - 180 mg/dL 12/14/2023 9:05 AM CDT [facility] Performing Location [facility] PSCU 12/14/2023 9:05 AM CDT [facility] Blood 12/14/2023 9:03 AM CDT 12/14/2023 9:05 AM CDT Carol Phillips MD LAB_1 Performing Organization Address [facility] Co de Phone Number [address] documented in this encounter Visit Diagnoses [...] (SUBLIMAZE) injection 25-50 mcg 25-50 mcg, Intravenous, [id number], Pain, Starting on Tue12/14/23 at 1105, Until [...] (NORMODYNE) injection 5 mg 5 mg, Intravenous, [id number], Blood Pressure >, Hypertension SBP greater than [...] (SUBLIMAZE) injection 25-50 mcg 25-50 mcg, Intravenous, [id number], Pain, Starting on Tue12/14/23 at 1105, Until [...] (NORMODYNE) injection 5 mg 5 mg, Intravenous, [id number], Blood Pressure >, Hypertension SBP greater than [...] Date Last Indicated Resolved Time MRSA Comment:Beronica --, 01/06/16 12/30/2014 12/30/2014 documented as of this encounter Care Teams Parts Counterman Relationship Specialty Start Date End Date Nikita Gamble MD [address] [place] [address] PCP - General Family Practice 06/23/23 documented as of this encounter
--- OUTSIDE RECORDS SUMMARY | 2024-01-01 14:43 | XMS_ITS | Clinical Summary ---
Author Organization Formerly [facility] Address [address] [place] [address] Care Team Providers Care Call Center Manager Name Role Phone Nikita Gamble MD Primary Care Provider Source Comments You are receiving this document as you are listed as the primary care provider,follow-up provider, or the patient has been referred to you for consultation.This is in compliance with the Medicare and[facility] EHR Incentive Program,which states Providers who transition their patient to another setting of careor provider of care or refers their patient to another provider of care shouldprovide summary care record for each transition of care or referral. [employer] Allergies Active Allergy Reactions Criticality Noted Date [...] Diabetes 15 mL 11 06/11/2015 Active rizatriptan (MAXALT-MARINE EQUIPMENT PRESERVATION INSPECTOR) 10 MG disintegrating tablet Take 1 Tablet [...] 1 diabetes mellitus with diabetic neuropathy, unspecified ([facility]) Use for continuous glucose monitoring. Change [...] daily. Pain 7-11/04. Can't be seen at [facility], owes them money. They suggested 2 total [...] Encounters Date Type Department Care Team Description 12/30/2023 Telephone Careline [address] [place] [address] Nikita Gamble MD PHONE CALL TO PATIENT 12/29/2023 8:30 AM CDT Telemedicine [facility] UroGynecology [address] [place] [address] Candice Coates MD OAB (overactive bladder) (Primary Dx); Mixed stress and urge urinary incontinence 12/14/2023 10:04 AM CDT Anesthesia Event Operating Room [address] [place] [address] Sridhar Walter MD Lange, Beth N, APRN, JAZZ SINGER 12/14/2023 10:00 AM CDT - 12/14/2023 11:15 AM CDT Surgery Operating Room [address] [place] [address] Carol Phillips MD HYSTEROSCOPY WITH TRUCLEAR, polypectomy, PAP SMEAR AND VULVAR BIOPSY 12/14/2023 8:02 AM CDT - 12/14/2023 12:46 PM CDT Hospital Encounter Operating Room [address] [place] [address] Carol Phillips MD Postmenopausal bleeding Discharge Disposition: Home 12/07/2023 Telephone [facility] [address] [place] [address] Logan Parra PA-C 12/01/2023 8:15 AM CDT Office Visit [facility] Urodynamics Clinic [address] [place] [address] Mixed stress and urge urinary incontinence (Primary Dx) 11/22/2023 3:40 PM CDT Telemedicine [facility] [address] [place] [address] Carol Phillips MD Endometrial polyp (Primary Dx); PMB (postmenopausal bleeding); Genitourinary syndrome of menopause 10/27/2023 3:00 PM CDT Lab Visit [facility] Laboratory [address] [place] [address] Routine medical exam 10/21/2023 Telephone [facility] [address] [place] [address] Carol Phillips MD Surgery Scheduling 10/17/2023 1:00 PM CDT Ancillary Procedure [facility] OB Ultrasound [address] [place] [address] Candice Coates MD Postmenopausal bleeding (Primary Dx) 10/17/2023 10:00 AM CDT Office Visit [facility] UroGynecology [address] [place] [address] Candice Coates MD Postmenopausal bleeding (Primary Dx); OAB (overactive bladder); Urge incontinence; Mixed stress and urge urinary incontinence; Urinary retention 10/07/2023 Telephone Specialty Center [facility] Urology Clinic [address] [place] [address] Candice Coates MD from Last 3 Months Immunizations Name Administration Dates Next Due Influenza IIV4 (Quadrivalent) 0.5mL (21372) 07/2014 Family History Medical History Relation Name [...] Contact Info) Description 01/09/2024 1:15 PM CDT [facility] [address] [place] [address] Candice Coates MD [address] [facility] [address] [place] [address] Health Maintenance Due Date Last Done Comments Colon Cancer Screening Plan Due 1965 Diabetes: [...] 2023 06/12/2020, 05/22/2020 Influenza (#1) 2023 02/14/2023, 10/09/2021, 12/16/2020, Additional history exists Cervical Cancer Screening Due 12/15/2023 12/14/2023 Diabetes: Urine Microalbumin 06/22/2024 06/23/2023, 02/07/2023 Diabetes: [...] on patient's age to complete this topic Infant RSV Aged Out No longer eligi ble based on patient's age to complete this topic MCV4 Aged Out No longer eligi ble based on patient's age to complete this topic Procedures Procedure Name Priority Date/Time Associated Diagnosis Comments SURGICAL PATHOLOGY Routine 12/14/2023 11 :04 AM CDT Postmenopausal bleeding HPV WITH 16 18 GENOTYPING, CERVICAL/ENDOCERVICAL Routine 12/14/2023 10:52 AM CDT PAP TEST Routine 12/14/2023 10:52 AM CDT HYSTEROSCOPY WITH TRUCLEAR 12/14/2023 9:56 AM CDT Postmenopausal bleeding GLUCOSE, WHOLE BLOOD POCT Routine 12/14/2023 9:03 AM CDT DNA ANALYSIS DISCRETE SEQUENCE VARIATION PANEL (BLOOD) Routine 10/27/2023 3:14 PM CDT Routine medical exam OBGYN PELVIC/HAT STOCK LAMINATING MACHINE OPERATOR ULTRASOUND Routine 10/17/2023 1:39 PM CDT Postmenopausal [...] AM CDT) Case Report Surgical Pathology ?Case: [id number] ? Authorizing Provider: ??Carol Phillips MD ?Collected: ? 12/14/2023 1104 ? Ordering Location: ? [facility] Operating Room ?Received: ?12/14/2023 1132 ? Pathologist: ? Joann Mckeon MD ? Specimens: ?? A) - Labia, left, Left superior labial biopsy ? B) - Vulva, Left vestibule ? C) - Uterus, Endometrial currettings ? 12/22/2023 1:[address] [facility] FINAL DIAGNOSIS A. Skin, Labia, [...] Clinical correlation is recommended. 12/22/2023 1:[address] [facility] Clinical Information Postmenopausal bleeding 12/22/2023 1:[address] [facility] Microscopic Description A. Microscopic examination including multiple deeper recut sections is performed. B/C. Microscopic examination is performed. 12/22/2023 1:[address] [facility] Special Stains The stain controls have been reviewed and stain appropriately. 12/22/2023 1:[address] [facility] Gross Description A: The specimen [...] in 1 cassette. TK 12/22/2023 1:[address] [facility] Embedded Images 12/22/2023 1:[address] [facility] Tissue GENITAL LABIUM STRUCTURE / Unknown 12/14/2023 11:04 AM CDT 12/14/2023 11:32 AM CDT Tissue specimen (specimen) VULVAL STRUCTURE / Unknown 12/14/2023 11:09 AM CDT 12/14/2023 11:32 AM CDT Tissue specimen (specimen) UTERINE STRUCTURE / Unknown 12/14/2023 11:16 AM CDT 12/14/2023 11:32 AM CDT Carol Phillips MD LAB PATHOLOGY Performing Organization Address [facility]/[place] [address], [facility] * PAP Test (12/14/2023 10:52 AM CDT) Case Report Pap ? Case: [id number] ? Authorizing Provider: ??Carol Phillips MD ?Collected: ? 12/14/2023 1052 ? Ordering Location: ? [facility] Operating Room ?Received: ?12/14/2023 1155 ? First Screen: ?Hollie, Laurita R, CT ? (ASCP) ? Specimen: ?Pap Test, Routine, Cervix/Endocervix ? 12/29/2023 12:[address] [facility] Pap Specimen Adequacy Satisfactory for evaluation, endocervical/herrera sformation zone component present. 12/29/2023 12:[address] [facility] Pap Interpretation (NILM) Negative for intraepithelial lesion or malignancy. 12/29/2023 12:[address] [facility] Pap Disclaimer The Pap test is a screening test to aid in the detection of cervical and vaginal cancers and their precursor lesions. It is not a diagnostic procedure and should not be used as the sole means of detecting malignancy. Both false-positive and false-negative results may occur. 12/29/2023 12:[address] [facility] Gross Description The specimen is received in SurePath fixative and properly labeled. 1 Pap-stained SurePath slide is prepared. 12/29/2023 12:[address] [facility] Embedded Images 12:[address] [facility] Other Specimen Type ENTIRE ENDOCERVIX / Unknown 12/14/2023 10:52 AM CDT 12/14/2023 11:55 AM CDT Comment:LMP: No LMP recorded . Patient is postmenopausal. Carol Phillips MD LAB PATHOLOGY Performing Organization Address City/State/[facility] Co de Phone Number [address] [address], [facility] * HPV Genotyping PCR (Cervical/Endocervical ONLY) (12/14/2023 10:52 AM CDT) HPV High Risk Type 16 PCR Not Detected Not detected 12/29/2023 12:[address] [facility] HPV High Risk Type 18 PCR Not Detected Not Detected 12/29/2023 12:08 PM CDT [facility] HPV High Risk Other Than 16/18 Not Detected Not detected 12/29/2023 12:08 PM CDT [facility] Cervical Broom ENTIRE ENDOCERVIX / Unknown 12/14/2023 10:52 AM CDT 12/14/2023 10:57 AM CDT Narrative [facility] - 12/29/2023 12:08 PM CDT [facility]bie [...] Carol Phillips MD LAB_1 Performing Organization Address [facility] Co de Phone Number [address] * Glucose, Whole Blood POCT (12/14/2023 9:03 AM CDT) Glucose, Whole Blood 174 70 - 180 mg/dL 12/14/2023 9:05 AM CDT [facility] Performing Location [facility] PSCU 12/14/2023 9:05 AM CDT [facility] Blood 12/14/2023 9:03 AM CDT 12/14/2023 9:05 AM CDT Carol Phillips MD LAB_1 Performing Organization Address City/[facility]/ZIP Co de Phone Number [address] * DNA Analysis Discrete Sequence Variation Panel (Blood) (Initial) (10/27/2023 3:14 PM CDT) Date Sample Received at Testing Lab 10/29/2023 12/28/2023 4:09 PM CDT [facility] Familial Hypercholesterolemia Not Detected 12/28/2023 4:09 PM CDT [facility] Comment: Pathogenic variant not detected. Genes Tested: BRCA1, BRCA2, MLH1, MSH2, MSH6, PMS2, EPCAM, APOB, LDLR, LDLRAP1, PCSK9 Test Description: [facility] Tier One Population Screen is a screening [...] This test was developed and validated by [employer]. This test has not been cleared or approved by the [place] Food and Drug Administration (FDA). The [facility] laboratory is accredited by the College of [place] [employer] (CAP) and certified under the Clinical Laboratory Improvement Amendments (CLIA #: [id number]) to perform high-complexity clinical tests. This test is used for clinical purposes. It should not be regarded as investigational or for research. Methods and Limitations: Extracted DNA is enriched for targeted regions and then sequenced using the [facility] Exome+ (R) assay on an Illumina DNA sequencing system. Data is then aligned to a modified version of GRCh38 and all genes are analyzed using the MIREYA transcript and MIREYA Plus Clinical transcript, when available. Small variant calling is completed using a customized version of [employer]'s Sweet Unknown Studiosq software, augmented by a proprietary small variant [...] is based upon guidelines published by the [place] [employer] (ACMG) and the Association for Molecular Pathology (AMP) or their modification by ClinGen Variant Curation Expert Panels when available. Interpretation is limited to the transcripts indicated on the report and +/- 10 bp into intronic regions, except as noted below. [place]mont variant classifications include pathogenic, likely pathogenic, variant [...] the promoter. Sequencing Location: Sequencing done at [facility]., [address] [place] [address], [address], [place] [address] (IA# [id number]) Designation: Venkata Ma, PhD, [facility] Email: [email or web address] Hereditary Breast and Ovarian Cancer Syndrome Not Detected 12/28/2023 4:09 PM [employer] ([employer]) Comment:Pathogenic variant n ot detected. Pleitez Syndrome Not Detected 12/28/2023 4:09 PM [employer] ([employer]) Comment:Pathogenic variant n ot detected. Blood or Saliva VENOUS BLOOD SPECIMEN / Unknown 10/27/2023 3:14 PM CDT 10/27/2023 3:14 PM CDT Everardo Go MD LAB_1 [facility] [address] [facility] [address] [place] [address] * (ABNORMAL) OBGYN Pelvic/Drywall Contractor Ultrasound (10/17/2023 1:39 PM CDT) Uterus AP Diameter (Height) 2.60 cm EXTERNAL RESULTS Uterus Longitudinal Diameter (Length) 6.40 cm EXTERNAL RESULTS Uterus Transverse Diameter (Width) 3.50 cm EXTERNAL RESULTS Uterus Volume 30.49 ml ACUTE CARE CERTIFIED NURSING ASSISTANT AL RESULTS Endometrium Thickness 6.10 mm EXTERNAL [...] from the original result was not included. HAT STOCK LAMINATING MACHINE OPERATOR Ultrasound Exam performed on: ??10/17/2023 Referring provider: Candice Coates MD Referring clinic: [facility] Clinical indications: Postmenopausal bleeding Quilting Machine Helper(s) initials: The pelvic organs are imaged using: [...] up with referring provider. ??Recommend consultation with document processor for hysteroscopy. ??Patient requested expedited surgery scheduling therefore surgical orders were placed. ?? Carol Phillips MD Candice Coates MD RAD US * (ABNORMAL) Urinalysis Routine, Micro/Culture if Pos: Straight catheter (10/17/2023 11:24 AM [facility]) Urine Culture Comment Urinalysis results do not meet criteria for urine culture reflex. 10/17/2023 11:41 AM [facility] Urine Color Yellow 10/17/2023 11:41 AM [facility] Urine Clarity Clear Clear 10/17/2023 11:41 AM [facility] Specific [place], Urine <=1.005(A) 1.005 - 1.030 10/17/2023 11:41 AM [facility] PH Urine 6.0 5.0 - 8.0 10/17/2023 11:41 AM [facility] Protein, Urine Qual (mg/dL) Negative Neg/Trace 10/17/2023 11:41 AM [facility] Glucose Urine Qual (mg/dL) Negative Negative 10/17/2023 11:41 AM CDT [facility] Ketones, Urine (mg/dL) Negative Negative 10/17/2023 11:41 AM CDT [facility] Urobilinogen, Urine (EU/dL) 0.2 <2.0 10/17/2023 11:41 AM CDT [facility] Bilirubin Urine Negative Negative 10/17/2023 11:41 AM CDT [facility] Blood, Urine Negative Neg/Trace 10/17/2023 11:41 AM CDT [facility] Nitrite Urine Negative Negative 10/17/2023 11:41 AM T [facility] Leukocyte Est. Negative Negative 10/17/2023 11:41 AM T [facility] Urine Source Straight catheter 10/17/2023 11:41 AM T [facility] Urine (Straight catheter) Non-blood Collection / Unknown 10/17/2023 11:24 AM CDT 10/17/2023 11:39 AM CDT Candice Coates MD LAB_1 [facility] [address] * (ABNORMAL) Renal Function Panel (08/05/2023 2:00 PM CDT) Sodium 135(L) 136 - 145 mmol/L 08/05/2023 6:52 PM [facility] Potassium 4.7 3.5 - 5.1 mmol/L 08/05/2023 6:52 PM [facility] Chloride 102 98 - 109 mmol/L 08/05/2023 6:52 PM [facility] CO2 23 20 - 29 mmol/L 08/05/2023 6:52 PM [facility] Anion Gap 10 6 - 16 mmol/L 08/05/2023 6:52 PM [facility] Calcium 9.4 8.4 - 10.4 mg/dL 08/05/2023 6:52 PM [facility] BUN 24 7 - 26 mg/dL 08/05/2023 6:[address] [facility] Creatinine 1.62(H) 0.55 - 1.02 mg/dL 08/05/2023 6:[address] [facility] Albumin 3.6 3.5 - 5.0 g/dL 08/05/2023 6:[address] [facility] Phosphorus 2.8 2.3 - 4.7 mg/dL 08/05/2023 6:[address] [facility] Glucose 93 70 - 100 mg/dL 08/05/2023 6:[address] [facility] Comment:The given reference range is for the fasting state. Non-fasting reference range for glucose is 70 - 180 mg/dL. GFR, Estimated 37(L) >60 mL/min/1. 73m2 08/05/2023 6:[address] [facility] Hours Fasting 0.1 8 - 12 Hours 08/05/2023 6:52 PM [facility] Blood Venipuncture / Unknown 08/05/2023 2:00 PM CDT 08/05/2023 2:00 PM CDT Nancy Stock MD LAB_1 [facility] [address] * (ABNORMAL) HgbA1c - Collect in Lab (08/05/2023 2:00 PM CDT) Hemoglobin A1C 8.3(H) <=5.6 % 08/05/2023 7:[address] [facility] Estimated Average Glucose (Calc) 192 < 117 mg/dL 08/05/2023 7:54 PM [facility] Comment:Estimated average gl ucose (eAG) converts A1c into glucose units (mg/dL) and estimates average glucose over the past approximately 3 months. The eAG reference interval (<117 mg/dL) corresponds to an A1c of <5.7%. Blood Venipuncture / Unknown 08/05/2023 2:00 PM CDT 08/05/2023 2:[address] [facility] - 08/05/2023 7:54 PM CDT For patients not previously diagnosed with diabetes: 5.7-6.4%: Increased risk for diabetes 6.5% and greater: Diagnostic for diabetes For patients diagnosed with diabetes: <8.0%: Goal of therapy for ages 18-75 Clinicians may recommend a higher or lower goal for specific individuals. Logan Parra PA-C LAB_1 Performing Organization Address [facility] Co de Phone Number [facility] [address] * (ABNORMAL) Albumin/Creatinine Ratio,Random Urine (06/23/2023 12:28 PM CDT) Albumin/Creati nine Ratio, Urine, Random 75(H) <30 mg/g 06/23/2023 7:[address] [facility] Albumin, Urine, Random 44.2 mg/L 06/23/2023 7:[address] [facility] Creatinine, Urine, Random 59 >20 mg/dL mg/dL 06/23/2023 7:[address] [facility] Urine Non-blood Collection / Unknown 06/23/2023 12:28 PM CDT 06/23/2023 12:28 PM CDT Nancy Stock MD LAB_1 Performing Organization Address [facility] de Phone Number [facility] [address] from Last 3 Months or Most Recently Relevant to Health Maintenance Additional Health Concerns Infection Onset Date Last Indicated MRSA Comment:Beronica 4-15, 01/06/16 12/30/2014 12/30/2014 Advance Directives * Full Code (Latest Code Status on File) Date Activated Date Inactivated Comments 04/28/2015 1:31 AM 04/30/2015 6:39 PM * Full Code Date Activated Date Inactivated Comments 12/29/2014 11:37 AM 12/30/2014 6:20 PM Care Teams Call Center Manager Relationship Specialty Start Date End Date Nikita Gamble MD [address] [place] [address] PCP - General Family Practice 06/23/23
--- OUTSIDE RECORDS SUMMARY | 2024-01-01 14:43 | XMS_ITS | Continuity of Care Document ---
Author Organization [facility] Address [address] [address] [place] [address] Phone Care Team Providers Care Marketing Professional Name Role Phone Rebecca MERCADO, Torey Unavailable Unavailable Procedures Procedure Date ERCP w/FB or stent removal Ercp; W/endo Retro Remov Stone Ercp; W/endo Retro Remov Stone ERCP w/stent & sphinc Advance Directives Directive Yes / No Effective Date File Name No Information Encounters Encounter Description Practice Location Reason(s) For Visit Diagnoses Date Provider Providers Copied on Encounter [facility], [address] [address], [place], [place], [id number], [place] [phone] [facility] No Information 2 Rebecca Lema. [address] [place] [address], [facility] [address], [place], [id number] , [place]. [phone] Referring Provider: Torey Fernandez MD, [address] [place] [address] [address], [address] . tel:[phone] [facility], [address] [address], [place], [place], [id number], [place] [phone] [facility] Bile leak 2 Mendoza Castillo. [address] [facility], [place], [place], [id number] , [place]. [phone] [facility], [address] [address], [place], [place], [id number], [place] [phone] [facility] No Information Sanjeev Castillo. [address] [facility], [place], [id number] , [place]. [phone] Referring Provider: Jonathan Rosado, [address] [facility] [address], [place], [address] . tel:[phone] Family History Family Member Type Diagnosis Age [...] type Covered constitution party ID Gabriele tyson(s) [facility] [id number] Social History Type Description Quantity Date Captured [...]
--- OUTSIDE RECORDS SUMMARY | 2024-01-01 14:43 | XMS_ITS | Encounter Summary ---
Author Organization [facility] Address [address] [place] [address] Care Team Providers Care Editor House Organ Name Role Phone Nikita Gamble MD Primary Care Provider [phone] Reason for Visit * Reason Comments PHONE CALL TO PATIENT Encounter Details Date Type Department Care Team (Late st Contact Info) Description 12/30/2023 Telephone Careline [address] [place], [place] [phone] Nikita Gamble MD [address] [place] [address] PHONE CALL TO PATIENT Social History Tobacco Use Types Packs/Day Years [...] as of this encounter Nursing Notes * Carol Moncada RN - 12/30/2023 9:21 AM CDT Marnie reports that she wants Dr Coates to know that she is hospitalized for sepsis and she apologizesmissing her appointment. RN assisted pt in rescheduling a VV. Karmen Steiner RN * Raquel Peace - 12/30/2023 8:00 AM CDT Verified patient identity using three identifiers: Yes Caller's relationship to patient: Self, Do you have a provider/clinic where you are seen for this? [facility]Sepideh/Jimmy Are you calling about a /BUSINESS AND SERVICES INSTRUCTOR related concern? No Message to Provider Patient would like to send a message to his/her: either provider or nurse Name of patient's provider: dr. Coates Summarize the patient's question or concern (if the patient is currently experiencing symptoms, askthem if they would like to speak to a CareLine Nurse): Hospitalized on - And is admitted and being treated for sepis - would like a return call Is it okay to leave a detailed message on your voicemail? Yes Patient was informed that if the call is after 3:00 pm or on a weekend/holiday, they may not get a call back today: Yes Plan: Message routed to the appropriate clinic pool. documented in this encounter Plan of Treatment Upcoming Encounters Date Type Department Care Team (Late st Contact Info) Description 01/09/2024 1:15 PM CDT [facility] UroGynecology [address] [place] [address] Candice Coates MD [address] [place] [address] documented as of this encounter Visit Diagnoses Not on filedocumented in this encounter Additional Health Concerns Infection Onset Date Last Indicated Resolved Time MRSA Comment:Beronica 12-29-14, 01/06/16 12/30/2014 12/30/2014 documented as of this encounter Care Teams Editor House Organ Relationship Specialty Start Date End Date Nikita Gamble MD [address] [place] [address] PCP - General Family Practice 06/23/23 documented as of this encounter
--- OUTSIDE RECORDS SUMMARY | 2024-01-01 14:43 | XMS_ITS | Encounter Summary ---
Author Organization [facility] Address [address] [place] [address] Care Team Providers Care Aircraft Communicator Name Role Phone Nikita Gamble MD Primary Care Provider [phone] Encounter Details Date Type Department Care Team (Late st Contact Info) Description 12/29/2023 8:30 AM CDT [facility] U[facility] [address] [place] [address] [place] [address] [place] [address] OAB (overactive bladder) (Primary Dx); Mixed stress and urge urinary incontinence Social History Tobacco Use Types Packs/Day Years [...] as of this encounter Progress Notes * Candice Coates MD - 12/29/2023 8:30 AM CDT ATTEMPTED to call the patient and logged on and patient never connected for the video Candice Coates MD 12/29/2023, 8:44 AM Visit not completed [facility] Urogynecology- Follow up Note Marnie Duvall : 1965 Date of Service: 12/29/2023 Chief complaint: No chief complaint on file. Marnie Duvall is a 58 y.o. F who presents today for follow up of urge incontinence, OAB Medical history is significant for: CKD Surgical history is significant for: Nephrectomy (Right) - open abdominal She was initially seen 10/17/23 Prior treatments: oxybutynin 10mg ER BID Leakage [...] Frequency: increased - voids per day: 7-8 Vaginal bulge symptoms: no She reports that she is irritated from leaking and there is occasional spotting Vaginally Spotting vaginally once a month for a day over the last 5 years On exam Urethra: Normal, Cough/Stress Test: Negative, and Hypermobile Bladder: Normal, Nontender, and PVR: 250 cc by catheter PVR with 12F non-indwelling catheter after cleaning urethra with betadine Cough stress test, empty supine: Negative *after the visit pelvic ultrasound had been completed which showed endometrial polyp she will follow up with general OBGYN for polypectomy and hysteroscopy which was arranged by ultrasound team We made the plan to stop oxybutynin, Urodynamics testing -UDS showed normal uroflow - during filling phase normal sensation 153cc, strong desire 410cc, capacity 611cc Detrusor Overactivity: was seen at 252cc with sensation of desire but without leak, at 411mls with leakage and was seen again at capacity of 611cc sensation of urgency but no leak Leak was seen with Valsalva leak point pressure of 225cm/H2O at a volume of 156c and cough with pressure of [id number] and volume of 156cc ; MUCP [id number] Voiding: complete voiding by detrusor contraction and some valsalva effort as well. 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 Social Connections Frequency of Communication with Friends and Family: Not on file Intimate Partner Violence: Not on file Housing Stability: Not on file OB History Para Term AB Living 0 0 0 0 0 0 SAB IAB Ectopic Multiple Live Births 0 0 0 0 0 Exam: Assessment: There are no diagnoses linked to this encounter. Plan: Candice Coates MD [facility] Uro[facility]ne[facility]/Female Pelvic Medicine and Reconstructive Surgery This note contains medical terminology which is meant for communication between health care physicians and providers. Please note that vocabulary/phrasing/abbreviations may not carry the same definitions as they would in normal conversational speech. This note was created using medical dictation software. Please excuse any typographical errors in taxation accountant. Follow up: Notes: documented in this encounter Plan of Treatment Upcoming Encounters Date Type Department Care Team (Late st Contact Info) Description 01/09/2024 1:15 PM CDT [facility] UroGynecology [address] [place] [address] Candice Coates MD [address] [facility] [address] [place] [address] documented as of this encounter Visit Diagnoses Diagnosis OAB (overactive bladder)- Primary Hypertonicity of bladder Mixed stress and urge urinary incontinence Mixed incontinence urge and stress (male)(female) documented in this encounter Additional Health Concerns Infection Onset Date Last Indicated Resolved Time MRSA Comment:Beronica 12-29-14, 01/06/16 12/30/2014 12/30/2014 documented as of this encounter Care Teams Aircraft Communicator Relationship Specialty Start Date End Date Nikita Gamble MD [address] [place] [address] PCP - General Family Practice 06/23/23 documented as of this encounter
--- OUTSIDE RECORDS SUMMARY | 2024-01-01 14:43 | XMS_ITS | Encounter Summary ---
Author Organization [facility] Address [address] [place] [address] Care Team Providers Care Law Office Receptionist Name Role Phone Nikita Gamble MD Primary Care Provider Reason for Visit * Auth/Cert (Routine) Specialty Diagnoses / Procedures Referred By Contac t Referred To Contact Diagnoses Postmenopausal bleeding . Procedures HYSTEROSCOPY WITH MYOSURE, polypectomy Referral ID Status Reason Start Date Expiration Date Visits Re quested Visits Authorized [id number] 1 1 Encounter Details Date Type Department Care Team (Late st Contact Info) Description 12/14/2023 10:04 AM CDT Anesthesia Event [facility] Operating Room [address] [place] [address] Sridhar Walter MD [address] [place] [address] Karmen Dorantes APRN, [facility] [address] [place] [address] Anesthesia Record Procedure Summary Procedure Name Responsible [...] report Electronically signed by Karmen Dorantes APRN, SELLING MANAGER [id number] [facility] transferre d. Meds Name Total propofol 10 [...] Walter MD - 12/14/2023 2:10 PM CDT [facility] Anesthesia Post-op Note Patient: Marnie Duvall Post-Op [...] Walter MD - 12/14/2023 9:32 AM CDT [facility] Anesthesia Pre-op Evaluation Procedure: HYSTEROSCOPY WITH MYOSURE, [...] Heart protection ??? Blood Glucose Monitoring Suppl ([employer] CONTOUR MONITOR) W/DEVICE KIT kit As instructed [...] mg) by mouth every 8 hours. ??? [employer] G7 Sensor continuous blood glucose device Use [...] dose Indications: Insulin- Dependent Diabetes ??? lancets ([employer] MICROLET LANCETS) Use as directed. Pharmacy dispense [...] mouth two times a day. ??? rizatriptan ([employer]-COMPOUNDING AND FINISHING SUPERVISOR) 10 MG disintegrating tablet Take 1 Tablet [...] QT 402 ms QTc 442 ms P [place] 59 degrees R [place] 36 degrees T [place] 67 degrees Physical Exam: BP (!) 143/57 [...] damaging the partial. The patient and/or their registration representative were notified about the potential risks of damage to the lips, teeth, dental devices, mouth and airway. H&P Reviewed and Patient examined, no change observed IV access Antibiotics per surgery Electronically signed by: Sridhar Walter MD 12/14/2023 9:32 AM documented in this encounter Plan of Treatment Upcoming Encounters Date Type Department Care Team (Late st Contact Info) Description 01/09/2024 1:15 PM CDT [facility] UroGy[facility]cology [address] [place] [address] Candice Coates MD [address] [facility] [address] [place] [address] documented as of this encounter Visit Diagnoses [...] Onset Date Last Indicated Resolved Time MRSA Comment:Beornica --15, 01/06/16 12/30/2014 12/30/2014 documented as of this encounter Care Teams Law Office Receptionist Relationship Specialty Start Date End Date Nikita Gamble MD [address] [place] [address] PCP - General Family Practice 06/23/23 documented as of this encounter
--- OUTSIDE RECORDS SUMMARY | 2024-01-01 14:44 | XMS_ITS | Encounter Summary ---
Author Organization [facility] Address [address] [place] [address] Care Team Providers Care Global Process Owner Name Role Phone Nikita Gamble MD Primary Care Provider Reason for Referral * Procedure/Equipment (Routine) - Incomplete Specialty Diagnoses / Procedures Referred By Contac t Referred To Contact Diagnoses Postmenopausal bleeding Procedures Case Request OR - Gynecologic Surg: HYSTEROSCOPY WITH MYOSURE, polypectomy Caorl Phillips MD [address] [place] [address] Referral ID Status Reason Start Date Expiration Date V isits Requested Visits Authorized [id number] Incomplete 10/17/2023 01/15/2025 1 1 Reason for Visit * Procedure/Equipment (Routine) - Incomplete Specialty Diagnoses / Procedures Referred By Contac t Referred To Contact Diagnoses Postmenopausal bleeding Procedures OBGYN Pelvic/Senior Net Application [place] [address] [place] [address] Referral ID Status Reason Start Date Expiration Date V isits Requested Visits Authorized [id number] Incomplete 10/17/2023 01/15/2025 1 1 Encounter Details Date Type Department Care Team ([facility] Contact Info) Description 10/17/2023 1:00 PM CDT Ancillary Procedure [facility] OB Ul[facility]ound [address] [place] [address] [place] [address] [place] [address] Postmenopausal bleeding (Primary Dx) Social History Tobacco [...] Contact Info) Description 01/09/2024 1:15 PM CDT [facility] U[facility] [address] [place] [address] Candice Coates MD [address] [place] [address] documented as of this encounter Procedures Procedure Name Priority Date/Time Associated Diagnosis Comments OBGYN PELVIC/FORM SETTER ULTRASOUND Routine 10/17/2023 1:39 PM CDT Postmenopausal bleeding documented in this encounter Results * (ABNORMAL) OBGYN Pelvic/Senior Net Application Developer Ultrasound (10/17/2023 1:39 PM CDT) Uterus AP Diameter (Height) 2.60 cm EXTERNAL RESULTS Uterus Longitudinal Diameter (Length) 6.40 cm EXTERNAL RESULTS Uterus Transverse Diameter (Width) 3.50 cm EXTERNAL RESULTS Uterus Volume 30.49 ml ENROLLMENT MANAGEMENT MANAGER AL RESULTS Endometrium Thickness 6.10 mm EXTERNAL [...] from the original result was not included. FORM SETTER Ultrasound Exam performed on: ??10/17/2023 Referring provider: Candice Coates MD Referring clinic: [facility] Clinical indications: Postmenopausal bleeding Rail Car Unloader(s) initials: The pelvic organs are imaged using: [...] up with referring provider. ??Recommend consultation with locker room attendant for hysteroscopy. ??Patient requested expedited surgery scheduling therefore surgical orders were placed. ?? Carol Phillips MD Candice Coates MD RAD documented in this encounter Visit Diagnoses Diagnosis Postmenopausal bleeding- Primary documented in this encounter Additional Health Concerns Infection Onset Date Last Indicated Resolved Time MRSA Comment:Justinelena 12-29-14, 01/06/16 12/30/2014 12/30/2014 documented as of this encounter Care Teams Global Process Owner Relationship Specialty Start Date End Date Nikita Gamble MD [address] [place] [address] PCP - General Family Practice 06/23/23 documented as of this encounter
--- OUTSIDE RECORDS SUMMARY | 2024-01-01 14:44 | XMS_ITS | Encounter Summary ---
Author Organization [facility] Address [address] [place] [address] Care Team Providers Care Multimedia Artist Name Role Phone Nikita Gamble MD Primary Care Provider Encounter Details Date Type Department Care Team (Late st Contact Info) Description 10/07/2023 Telephone Specialty [facility] [address] [facility] [place], [place] [id number] Candice Coates MD [facility] [address] [place], [place] [phone] Social History Tobacco Use Types Packs/Day Years [...] wrong address for appt and came to [address] [place] [address] and was informed she was at the wrong clinic after trying to find where Dr. Gallego office was. Calling to see if theres anyway to be seen later today? She apologized profusely with [place] team and expressed flustered due to the mix up and the road construction. Per Patient chart, [place]. Please contact patient and advise Khushbu Newman 10/07/2023, 10:31 AM documented in this encounter Plan of Treatment Upcoming Encounters Date Type Department Care Team (Late st Contact Info) Description 01/09/2024 1:15 PM CDT [facility] UroGynecology [address] [place] [address] Candice Coates MD [address] [place] [address] [address] [place] [address] documented as of this encounter Visit Diagnoses Not on filedocumented in this encounter Additional Health Concerns Infection Onset Date Last Indicated Resolved Time MRSA Comment:Beronica 12-29-, 01/06/16 12/30/2014 12/30/2014 documented as of this encounter Care Teams Multimedia Artist Relationship Specialty Start Date End Date Nikita Gamble MD [address] [place] [address] PCP - General Family Practice 06/23/23 documented as of this encounter
--- OUTSIDE RECORDS SUMMARY | 2024-01-01 14:44 | XMS_ITS | Clinical Summary ---
Author Organization [facility] Address [address] [place] [address]. [place] [address] Care Team Providers Care Religious Healer Name Role Phone Jocelyn Davidson RD Unavailable [phone] Nikita Gamble MD Primary Care Provider [phone] Mikki Blevins MD Unavailable [phone] Allergies No known active allergies Medications [...] hours Using T:Connect: Yes Dexcom Sharing Code: [id number] 02/21/2019 Active blood glucose (ACCU-CHEK RADHA PLUS) [...] Assigned at Female 03/04/2020 12:33 PM WORM PACKER Gender Identity Female 03/04/2020 12:33 PM WORM PACKER Sexual Orientation Straight 03/04/2020 12 :33 PM WORM PACKER Last Filed Vital Signs Vital Sign Reading Time Taken Comments Blood Pressure 128/68 11/06/2020 3:31 PM CDT Pulse 75 11/06/2020 3:31 PM CDT Temperature 37 ??C (98.6 ??F) 11/06/2020 3:31 PM CDT Respiratory Rate 19 02/26/2020 1:31 PM WORM PACKER Oxygen Saturation 96% 11/06/2020 3:31 PM CDT Inhaled Oxygen Concentration - - Weight 111.1 kg (245 lb) 02/09/2022 9:39 AM WORM PACKER last recorded Height 180.3 cm (5' 11) 02/09/2022 9:39 AM WORM PACKER pt reported Body Mass Index 34.17 02/09/2022 9:39 AM WORM PACKER Plan of Treatment Health Maintenance Due Date [...] COLONOSCOPY 06/02/2030 06/02/2020 COLORECTAL CANCER SCREENING 06/02/2030 RSV VACCINE (1 - 1-dose 75+ series) 02/29/2040 HEPATITIS B IMMUNIZATION Completed 015, 10/18/2013, 05/31/2013 [...] - HIM SCAN 05/07/2020 1 2:00 AM WORM PACKER RENAL PANEL Routine 08/16/2019 5:57 PM CDT Uncontrolled type 1 diabetes with renal manifestation (H) ABSTRACT PAP ([facility] EXTERNAL RESULT) Routine 06/09/2017 ABSTRACT HPV ([facility] EXTERNAL RESULT) Routine 06/09/2017 COMPREHENSIVE METABOLIC [...] MD LAB - URINE ORDERABLES O[facility] [place] [facility] [address] Lab (no room number, 1st floor of clinic) [place] [address], [place] [phone] * (ABNORMAL) Hemoglobin A1c (01/05/2021 3:04 PM CDT) Hemoglobin A1C 7.4(H) 0.0 - 5.6 % 01/05/2021 3:47 PM CDT CR [facility]ATORY Comment: Normal <5.7% Prediabetes 5.7-6.4% ?? Diabetes 6.5% or higher Note: Adopted from ADA consensus guidelines. Blood BLOOD SPECIMEN / Unknown Venipuncture / Unknown 01/05/2021 3:04 PM CDT 01/05/2021 3:04 PM CDT Harlan Lin MD LAB - BLOOD ORDERABLES CR LABORATORY [facility] Lab [address] [place] [address] Lab (no room number, 1st floor of clinic) [place] [address], [place] [phone] * (ABNORMAL) TSH with free T4 reflex (01/05/2021 3:03 PM CDT) TSH 8.38(H) 0.40 - 4.00 mU/L 01/06/2021 9:21 AM CDT [facility] Blood BLOOD SPECIMEN / Unknown Venipuncture / Unknown 01/05/2021 3:03 PM CDT 01/05/2021 3:04 PM CDT Harlan Lin MD LAB - BLOOD ORDERABLES [facility] [address] Lab (no room number, 1st floor of clinic) [place] [address], [facility] [phone] * (ABNORMAL) Lipid panel reflex to direct [...] MD LAB - BLOOD ORDERABLES [facility] [address] Lab (no room number, 1st floor of clinic) [place] [address], [facility] [phone] * (ABNORMAL) BASIC METABOLIC PANEL (01/05/2021 3:03 [...] Harlan Lin MD LAB - BLOOD ORDERABLES [facility] Lab [address] Lab (no room number, 1st floor of clinic) [place] [address], [facility] [phone] * (ABNORMAL) EYE EXAM - HIM SCAN (05/07/2020 12:00 AM WORM PACKER) RETINOPATHY POSITIVE(A ) 05/07/2020 Narrative Fredlilibeth Suyapa - 05/07/2020 12:00 AM WORM PACKER DIABETIC EYE EXAM [facility] Provider Outside OTHER * (ABNORMAL) Renal panel (Alb, BUN, Ca, Cl, CO2, Creat, Gluc, Phos, K, Na) (08/16/2019 5:57 PM CDT) [facility] Sodium 136 133 - 144 mmol/L 08/16/2019 6:32 PM CDT [facility] Potassium 4.6 3.4 - 5.3 mmol/L 08/16/2019 6:32 PM T [facility] Chloride 107 94 - 109 mmol/L 08/16/2019 6:32 PM [facility] Carbon Dioxide 24 20 - 32 mmol/L 08/16/2019 6:[address] [facility] Anion Gap 5 3 - 14 mmol/L 08/16/2019 6:39 PM [facility] Glucose 166(H) 70 - 99 mg/dL 08/16/2019 6:[address] [facility] Urea Nitrogen 21 7 - 30 mg/dL 08/16/2019 6:39 PM [facility] Creatinine 1.41(H) 0.52 - 1.04 mg/dL 08/16/2019 6:39 PM [facility] GFR Estimate 42(L) >60 mL/min/{1 .73_m2} 08/16/2019 6:39 PM T [facility] Comment: Non GFR Calc Starting 03/14/2018, serum creatinine based estimated GFR (eGFR) will be calculated using the Chronic Kidney Disease Epidemiology Collaboration (CKD-EPI) equation. GFR Estimate If Black 49(L) >60 mL/min/{1 .73_m2} 08/16/2019 6:[address] [facility] Comment: GFR Calc Starting 03/14/2018, serum creatinine based estimated GFR (eGFR) will be calculated using the Chronic Kidney Disease Epidemiology Collaboration (CKD-EPI) equation. Calcium 9.0 8.5 - 10.1 mg/dL 08/16/2019 6:[address] [facility] Phosphorus 3.4 2.5 - 4.5 mg/dL 08/16/2019 6:[address] [facility] Albumin 3.9 3.4 - 5.0 g/dL 08/16/2019 6:[address] [facility] Blood specimen (specimen) 08/16/2019 5:57 PM CDT 08/16/2019 5:58 PM CDT Annette Alvarez TRACK RIDER SHEET MANAGER LAB - BLOOD O RDERABLES [facility] [address] [place] [address], [facility] [phone] [facility] [address] [place] [address], [facility] [phone] * ABSTRACT HPV-NO CHARGE (06/09/2017) HPV Abstract See Scanned Document [facility] 06/09[facility]2017 Narrative [facility]AL LABOR[facility] - 06/09/2017 Krissy Staton [...] Outside LAB - HIM EXTERNAL R ESULT Performing Organization Address City/[facility]/ZIP Co de Phone Number [facility] [address] * ABSTRACT PAP-NO CHARGE (06/09/2017) PAP-ABSTRACT See Scanned Document [facility] 06/09/2017 Narrative [facility] - 06/09/2017 Krissy Staton [...] this date: 06/09/17 Provider Outside LAB - [facility] EXTERNAL R ESULT Performing Organization Address City/[facility] Co de Phone Number [facility] [address] * (ABNORMAL) CBC with platelets + differential (12/25/2014 10:48 PM CDT) Pathologist [facility] WBC 10.7 4.0 - 11.0 10e9/L [facility] RBC Count 3.98 3.8 - 5.2 10e12/L [facility] Hemoglobin 11.9 11.7 - 15.7 g/dL [facility] Hematocrit 34.5(L) 35.0 - 47.0 % [facility] MCV 87 78 - [address] [facility] MCH 29.9 26.5 - 33.[address] [facility] MCHC 34.5 31.5 - 36.5 g/dL [facility] RDW 12.3 10.0 - 15.0 % [facility] Platelet Count 290 150 - 450 10e9/L [facility] Diff Method Automated Method [facility] % Neutrophils 71.9 % [facility] % Lymphocytes 19.2 % [facility] % Monocytes 5.6 % [facility] % Eosinophils 2.7 % [facility] % Basophils 0.5 % [facility] % Immature Granulocytes 0.1 % [facility] Absolute Neutrophil 7.7 1.6 - 8.3 10e9/L [facility] Absolute Lymphocytes 2.1 0.8 - 5.3 10e9/L [facility] Absolute Monocytes 0.6 0.0 - 1.3 10e9/L [facility] Absolute Eosinophils 0.3 0.0 - 0.7 10e9/L [facility] Absolute Basophils 0.1 0.0 - 0.2 10e9/L [facility] Abs Immature Granulocytes 0.0 0 - 0.4 10e9/L [facility] Blood specimen (specimen) 12/25/2014 10:48 PM CDT 12/25/2014 10:58 PM CDT Constance Wolff PA-C LAB - BLOO D ORDERABLES [facility] [address] [place] [address], [facility] [phone] * (ABNORMAL) Comprehensive metabolic panel (12/25/2014 10:48 PM CDT) Sodium 137 133 - 144 mmol/L [facility] Potassium 4.3 3.4 - 5.3 mmol/L [facility] Chloride 104 94 - 109 mmol/L [facility] Carbon Dioxide 29 20 - 32 mmol/L [facility] Anion Gap 4 3 - 14 mmol/L [facility] Glucose 77 70 - 99 mg/dL [facility] Urea Nitrogen 16 7 - 30 mg/dL [facility] Creatinine 1.27(H) 0.52 - 1.04 mg/dL [facility] GFR Estimate 45(L) >60 mL/min/1.[address] [facility] Comment:Non GFR Calc GFR Estimate If Black 54(L) >60 mL/min/1.[address] [facility] Comment: GFR Calc Calcium 8.2(L) 8.5 - 10.1 mg/dL [facility] Bilirubin Total 0.2 0.2 - 1.3 mg/dL [facility] Albumin 3.7 3.4 - 5.0 g/dL [facility] Protein Total 7.1 6.8 - 8.8 g/dL [facility] Alkaline Phosphatase 87 40 - 150 U/L [facility] ALT 24 0 - 50 U/L [facility] AST 16 0 - 45 U/L [facility] Blood specimen (specimen) 12/25/2014 10:48 PM CDT 12/25/2014 10:58 PM CDT Constance Wolff PA-C LAB - BLOO D ORDERABLES [facility] [address] [place] [address], [facility] [phone] * (ABNORMAL) *UA reflex to Microscopic (12/25/2014 10:05 PM CDT) Color Urine Yellow [facility] Appearance Urine Clear [facility] Glucose Urine 100(A) NEG mg/dL [facility] Bilirubin Urine Negative NEG [facility] Ketones Urine Negative NEG mg/dL [facility] Specific [place] Urine 1.010 1.003 - 1.035 [facility] Blood Urine Negative NEG [facility] pH Urine 6.0 5.0 - 7.0 pH [facility] Protein Albumin Urine Negative NEG mg/dL [facility] Urobilinogen Urine 0.2 0.2 - 1.0 EU/dL [facility] Nitrite Urine Negative NEG [facility] Leukocyte Esterase Urine Negative NEG [facility] Source Midstream Urine [facility] 12/25/2014 10:0 5 PM CDT 12/25/2014 10:13 PM CDT Gem Ribeiro MD LAB - URINE ORDERAB LES [facility] [address] [address], [facility] [phone] from Last 3 Months or Most Recently Relevant to Health Maintenance Care Teams Religious Healer Relationship Specialty Start Date End Date Nikita Gamble MD [address] [place] [address] PCP - General Family Medicine 05/26/20 Jocelyn Davidson, REANTA [address] [place] [address] Architectural Technologist Dietitian, Registered 05/25/18 Mikki Blevins MD [address] [place], [place] [address] Endocrinology, Diabetes, and Metabolism 05/07/21
--- OUTSIDE RECORDS SUMMARY | 2024-01-01 14:44 | XMS_ITS | Encounter Summary ---
Author Organization [facility] Address [address] [place] [address] Care Team Providers Care Family Resource Management Professor Name Role Phone Nikita Gamble MD Primary Care Provider Encounter Details Date Type Department Care Team (Late st Contact Info) Description 04/28/2015 Correspondence [facility] Radiology [address] [place] [address] Radiology, Provider MRI SAFETY SHEET AND COMPATIBILITY [...] [facility] [address] [place] [address] Candice Coates MD [address] [address] documented as of this encounter Visit Diagnoses Not on filedocumented in this encounter Additional Health Concerns Infection Onset Date Last Indicated Resolved Time MRSA Comment:Beronica 10-4-15, 01/06/16 12/30/2014 12/30/2014 documented as of this encounter Care Teams Family Resource Management Professor Relationship Specialty Start Date End Date Nikita Gamble MD [address] [place] [address] PCP - General Family Practice 06/23/23 documented as of this encounter
--- OUTSIDE RECORDS SUMMARY | 2024-01-01 14:44 | XMS_ITS | Encounter Summary ---
Author Organization [facility] Address [address] [place] [address] Care Team Providers Care Char Conveyor Tender Name Role Phone Nikita Gamble MD Primary Care Provider Encounter Details Date Type Department Care Team (Late st Contact Info) Description 11/22/2023 3:40 PM CDT Telemedicine [facility] [address] [facility]. [place], [place] [id number] Carol Phillips MD [address] [place] [address] Endometrial polyp (Primary Dx); PMB (postmenopausal bleeding); [...] Phillips MD - 11/22/2023 3:40 PM CDT AMPOULE EXAMINER Visit Video converted to phone due to [...] Helped but didn't make a big difference. [place] a tearing sensation every time she was [...] clinic: [facility]EC[facility] Clinical indications: Postmenopausal bleeding Gospel Worker(s) initials: The pelvic organs are imaged using: [...] up with referring provider. Recommend consultation with jewelry designer for hysteroscopy. Patient requested expedited surgery scheduling therefore surgical orders were placed. 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 Patient is postmenopausal. [...] 100 Tab 3 Blood Glucose Monitoring Suppl (PriceMe CONTOUR MONITOR) W/DEVICE KIT kit As instructed 1 Each 0 blood glucose (PriceMe CONTOUR TEST) strip 4 x daily. Pharmacy [...] (10 mg) by mouth every 8 hours. Werkadoo G7 Sensor continuous blood glucose device Use [...] by mouth two times a day. rizatriptan (MAXALT-CRTTS) 10 MG disintegrating tablet Take 1 Tablet [...] to have preop close to home in [place]. Consent to be signed day of surgery. [...] Info) Description 01/09/2024 1:15 PM CDT Telemedicine [facility] UroGynecology [address] [place] [address] Candice Coates MD [address] [address] documented as of this encounter Visit Diagnoses Diagnosis Endometrial polyp- Primary Polyp of corpus uteri PMB (postmenopausal bleeding) Postmenopausal bleeding Genitourinary syndrome of menopause documented in this encounter Additional Health Concerns Infection Onset Date Last Indicated Resolved Time MRSA Comment:Beronica 12-29-14, 01/06/16 12/30/2014 12/30/2014 documented as of this encounter Care Teams Char Conveyor Tender Relationship Specialty Start Date End Date Nikita Gamble MD [address] [place] [address] PCP - General Family Practice 06/23/23 documented as of this encounter
--- OUTSIDE RECORDS SUMMARY | 2024-01-01 14:44 | XMS_ITS | Encounter Summary ---
Author Organization [facility] Address [address] [place] [address] Care Team Providers Care Budget Clerk Name Role Phone Nikita Gamble MD Primary Care Provider Reason for Visit * Reason Onset Date Comments Urodynamics 12/01/2023 Urodynamics 12/28/2023 Encounter Details Date Type Department Care Team (Latest Contact Info) Description 12/01/2023 8:15 AM CDT Office Visit Specialty [facility] [address] [place] [phone] Mixed stress and urge urinary incontinence (Primary [...] (Ifsuffering from incomplete emptying, please ask the assistant clinical director about specific directions). There are generally no adverse of long lasting side effects from Urodynamics testing. You may, however, experience a burning sensation of pass a small amount of blood when urinating for the next 24 to 48 hours. This is considered normal following catheterization. Please contact Dr. Candice Yap at [phone] if any problems should arise or you [...] Was this typical flow for the patient? [place] able to go, slight urge CMG Patient [...] uroflow Complex Cystometrogram: Performed using a #8 Persian dual lumen urethral catheter with simultaneous rectal [...] of 156c and cough with pressure of [id number] and volume of 156cc Prolapse reduction stress test was not performed. Urethral Pressure Profile: This was performed using a #8 Persian urethral catheter with slow constant pull and [...] Mixed stress and urge urinary incontinence N39.46 12315 Cystometrogram W/Correctional Counselor&Up 21748 Emg Anal/Ureth Sphincter-Not Needle 45705 Intraabdominal Pressure Test documented in this encounter Plan of Treatment Upcoming Encounters Date Type Department Care Team (Late st Contact Info) Description 01/09/2024 1:15 PM CDT [facility] [address] [place] [address] Candice Yap MD [address] [place] [address] documented as of this encounter Visit Diagnoses Diagnosis Mixed stress and urge urinary incontinence- Primary Mixed incontinence urge and stress (male)(female) documented in this encounter Additional Health Concerns Infection Onset Date Last Indicated Resolved Time MRSA Comment:Beronica 12-29-14, 01/06/16 12/30/2014 12/30/2014 documented as of this encounter Care Teams Budget Clerk Relationship Specialty Start Date End Date Nikita Gamble MD [address] [place] [address] PCP - General Family Practice 06/23/23 documented as of this encounter
--- OUTSIDE RECORDS SUMMARY | 2024-01-01 14:44 | XMS_ITS | Encounter Summary ---
Author Organization [facility] Address [address], [place] [address] Care Team Providers Care Animal Attendant Name Role Phone Nikita Gamble MD Primary Care Provider [phone] Encounter Details Date Type Department Care Team (Late Contact Info) Description 08/31/2023 E-Visit [place] Dietitian's [address] [address] Mychart, [place] [address] Social History Tobacco Use Types Packs/Day Years [...] [facility] [address] [place] [address] Candice Coates MD [address] [address] documented as of this encounter Visit Diagnoses Not on filedocumented in this encounter Additional Health Concerns Infection Onset Date Last Indicated Resolved Time MRSA Comment:Justinelena -4-15, 01/06/16 12/30/2014 12/30/2014 documented as of this encounter Care Teams Animal Attendant Relationship Specialty Start Date End Date Nikita Gamble MD [address] [place] [address] PCP - General Family Practice 06/23/23 documented as of this encounter
--- OUTSIDE RECORDS SUMMARY | 2024-01-01 14:44 | XMS_ITS | Referral Summary ---
Author Organization [facility] Address [address] [place] [address]. [place] [address] Care Team Providers Care Plant Attendant Name Role Phone Jocelyn Davidson RD Unavailable [phone] Nikita Gamble MD Primary Care Provider Mikki Blevins MD Unavailable [phone] Allergies No known active allergies Medications [...] hours Using T:Connect: Yes Dexcom Sharing Code: [id number] 02/21/2019 Active blood glucose (ACCU-CHEK RADHA PLUS) [...] Sex Assigned at Female 03/04/2020 12:33 PM LOGISTICS PROJECT MANAGER Gender Identity Female 03/04/2020 12:33 PM LOGISTICS PROJECT MANAGER Sexual Orientation Straight 03/04/2020 12 :33 PM LOGISTICS PROJECT MANAGER Last Filed Vital Signs Vital Sign Reading Time Taken Comments Blood Pressure 128/68 11/06/2020 3:31 PM CDT Pulse 75 11/06/2020 3:31 PM CDT Temperature 37 ??C (98.6 ??F) 11/06/2020 3:31 PM CDT Respiratory Rate 19 02/26/2020 1:31 PM LOGISTICS PROJECT MANAGER Oxygen Saturation 96% 11/06/2020 3:31 PM CDT Inhaled Oxygen Concentration - - Weight 111.1 kg (245 lb) 02/09/2022 9:39 AM LOGISTICS PROJECT MANAGER last recorded Height 180.3 cm (5' 11) 02/09/2022 9:39 AM LOGISTICS PROJECT MANAGER pt reported Body Mass Index 34.17 02/09/2022 9:39 AM LOGISTICS PROJECT MANAGER Plan of Treatment Not on file Procedures [...] - HIM SCAN 05/07/2020 1 2:00 AM LOGISTICS PROJECT MANAGER RENAL PANEL Routine 08/16/2019 5:57 PM CDT Uncontrolled type 1 diabetes with renal manifestation (H) ABSTRACT PAP ([facility] EXTERNAL RESULT) Routine 06/09/2017 ABSTRACT HPV ([facility] EXTERNAL RESULT) Routine 06/09/2017 COMPREHENSIVE METABOLIC [...] MD LAB - URINE ORDERABLES OX LABORATORY [facility] Lab [address] Lab (no room number, 1st floor of clinic) [place] [address], [facility] [phone] * (ABNORMAL) Hemoglobin A1c (01/05/2021 3:04 PM CDT) Hemoglobin A1C 7.4(H) 0.0 - 5.6 % 01/05/2021 3:47 PM CDT CR LABORATORY Comment: Normal <5.7% Prediabetes 5.7-6.4% ?? Diabetes 6.5% or higher Note: Adopted from ADA consensus guidelines. Blood BLOOD SPECIMEN / Unknown Venipuncture / Unknown 01/05/2021 3:04 PM CDT 01/05/2021 3:04 PM CDT Harlan Lin MD LAB - BLOOD ORDERABLES CR LABORATORY [facility] Lab [address] [facility] Lab (no room number, 1st floor of clinic) [place] [address], [place] [phone] * (ABNORMAL) TSH with free T4 reflex (01/05/2021 3:03 PM CDT) Pathologist [facility] TSH 8.38(H) 0.40 - 4.00 mU/L 01/06/2021 9:21 AM CDT OX LABORATORY Blood BLOOD SPECIMEN / Unknown Venipuncture / Unknown 01/05/2021 3:03 PM CDT 01/05/2021 3:04 PM CDT Harlan Lin MD LAB - BLOOD ORDERABLES OX LABORATORY [facility] Lab [address] Lab (no room number, 1st floor of clinic) [place] [address], [place] [phone] * (ABNORMAL) Lipid panel reflex to direct [...] MD LAB - BLOOD ORDERABLES OX LABORATORY [facility] [address] Lab (no room number, 1st floor of clinic) [place] [address], [facility] [phone] * (ABNORMAL) BASIC METABOLIC PANEL (01/05/2021 3:03 [...] MD LAB - BLOOD ORDERABLES [facility] Lab [address] Lab (no room number, 1st floor of clinic) [place] [address], [facility] [phone] * (ABNORMAL) EYE EXAM - HIM SCAN (05/07/2020 12:00 AM LOGISTICS PROJECT MANAGER) RETINOPATHY POSITIVE(A ) 05/07/2020 Narrative Suyapa Adams - 05/07/2020 12:00 AM LOGISTICS PROJECT MANAGER DIABETIC EYE EXAM [facility] Provider Outside OTHER * (ABNORMAL) Renal panel (Alb, BUN, Ca, Cl, CO2, Creat, Gluc, Phos, K, Na) (08/16/2019 5:57 PM CDT) Sodium 136 133 - 144 mmol/L 08/16/2019 6:32 PM T [facility] Potassium 4.6 3.4 - 5.3 mmol/L 08/16/2019 6:32 PM T [facility] Chloride 107 94 - 109 mmol/L 08/16/2019 6:32 PM [facility] Carbon Dioxide 24 20 - 32 mmol/L 08/16/2019 6:[address] [facility] Anion Gap 5 3 - 14 mmol/L 08/16/2019 6:[address] [facility] Glucose 166(H) 70 - 99 mg/dL 08/16/2019 6:[address] [facility] Urea Nitrogen 21 7 - 30 mg/dL 08/16/2019 6:[address] [facility] Creatinine 1.41(H) 0.52 - 1.04 mg/dL 08/16/2019 6:[address] [facility] GFR Estimate 42(L) >60 mL/min/{1 .73_m2} 08/16/2019 6:[address] [facility] Comment: Non GFR Calc Starting 03/14/2018, serum creatinine based estimated GFR (eGFR) will be calculated using the Chronic Kidney Disease Epidemiology Collaboration (CKD-EPI) equation. GFR Estimate If Black 49(L) >60 mL/min/{1 .73_m2} 08/16/2019 6:[address] [facility] Comment: GFR Calc Starting 03/14/2018, serum creatinine based estimated GFR (eGFR) will be calculated using the Chronic Kidney Disease Epidemiology Collaboration (CKD-EPI) equation. Calcium 9.0 8.5 - 10.1 mg/dL 08/16/2019 6:[address] [facility] Phosphorus 3.4 2.5 - 4.5 mg/dL 08/16/2019 6:[address] [facility] Albumin 3.9 3.4 - 5.0 g/dL 08/16/2019 6:[address] [facility] Blood specimen (specimen) 08/16/2019 5:57 PM CDT 08/16/2019 5:58 PM CDT Annette Alvarez DIRECTOR OF WEB MARKETING [employer] LAB - BLOOD O RDERABLES [facility] [address] [place] [address], [facility] [phone] [facility] [address] [place] [address], [facility] [phone] * ABSTRACT HPV-NO CHARGE (06/09/2017) HPV Abstract See Scanned Document [facility] 06/09/2017 Narrative [facility] - 06/09/2017 Krissy Staton MA ??Abstract Quality Initiatives 21 hours ago (1:44 PM) Please abstract the following data from this visit with this patient into the appropriate field in Fantastic.cl: Tests that can be patient reported without a hard copy: Other Tests found in the patient's chart through Chart Review/Care Everywhere: Pap smear done by this group Jarrell this date: 06/09/17 Provider Outside LAB - HIM EXTERNAL R ESULT [facility] [address] [place] [address], [facility] * ABSTRACT PAP-NO CHARGE (06/09/2017) PAP-ABSTRACT See Scanned Document [facility] [employer]CENTRAL LABORATORY 06/09/2017 Narrative [facility] [employer]C[facility]TRAL [facility]ORATORY - 06/09/2017 Krissy Staton MA ??Abstract Quality Initiatives 21 hours ago (1:44 PM) Please abstract the following data from this visit with this patient into the appropriate field in Fantastic.cl: Tests that can be patient reported without a hard copy: Other Tests found in the patient's chart through Chart Review/Care Everywhere: Pap smear done by this group Reneasurinder this date: 06/09/17 Provider Outside LAB - [facility] EXTERNAL R ESULT [facility] LAB-[facility]AL LAB[facility]ATORY [address] * (ABNORMAL) CBC with platelets + differential (12/25/2014 10:48 PM CDT) WBC 10.7 4.0 - 11.0 10e9/L [facility] RBC Count 3.98 3.8 - 5.2 10e12/L [facility] Hemoglobin 11.9 11.7 - 15.7 g/dL [facility] Hematocrit 34.5(L) 35.0 - 47.0 % [facility] MCV 87 78 - [address] [facility] MCH 29.9 26.5 - 33.[address] [facility] MCHC 34.5 31.5 - 36.5 g/dL [facility] RDW 12.3 10.0 - 15.0 % [facility] Platelet Count 290 150 - 450 10e9/L [facility] Diff Method Automated Method [facility] % Neutrophils 71.9 % [facility] % Lymphocytes 19.2 % [facility] % Monocytes 5.6 % [facility] % Eosinophils 2.7 % [facility] % Basophils 0.5 % [facility] % Immature Granulocytes 0.1 % [facility] Absolute Neutrophil 7.7 1.6 - 8.3 10e9/L [facility] Absolute Lymphocytes 2.1 0.8 - 5.3 10e9/L [facility] Absolute Monocytes 0.6 0.0 - 1.3 10e9/L [facility] Absolute Eosinophils 0.3 0.0 - 0.7 10e9/L [facility] Absolute Basophils 0.1 0.0 - 0.2 10e9/L [facility] Abs Immature Granulocytes 0.0 0 - 0.4 10e9/L [facility] Blood specimen (specimen) 12/25/2014 10:48 PM CDT 12/25/2014 10:58 PM CDT Constance Wolff PA-C LAB - BLOO D ORDERABLES [facility] [address] [place] [address], [facility] [phone] * (ABNORMAL) Comprehensive metabolic panel (12/25/2014 10:48 PM CDT) Sodium 137 133 - 144 mmol/L [facility] Potassium 4.3 3.4 - 5.3 mmol/L [facility] Chloride 104 94 - 109 mmol/L [facility] Carbon Dioxide 29 20 - 32 mmol/L [facility] Anion Gap 4 3 - 14 mmol/L [facility] Glucose 77 70 - 99 mg/dL [facility] Urea Nitrogen 16 7 - 30 mg/dL [facility] Creatinine 1.27(H) 0.52 - 1.04 mg/dL [facility] GFR Estimate 45(L) >60 mL/min/1.[address] [facility] Comment:Non GFR Calc GFR Estimate If Black 54(L) >60 mL/min/1.[address] [facility] Comment: GFR Calc Calcium 8.2(L) 8.5 - 10.1 mg/dL [facility] Bilirubin Total 0.2 0.2 - 1.3 mg/dL [facility] Albumin 3.7 3.4 - 5.0 g/dL [facility] Protein Total 7.1 6.8 - 8.8 g/dL [facility] Alkaline Phosphatase 87 40 - 150 U/L [facility] ALT 24 0 - 50 U/L [facility] AST 16 0 - 45 U/L [facility] Blood specimen (specimen) 12/25/2014 10:48 PM CDT 12/25/2014 10:58 PM CDT Constance Wolff PA-C LAB - BLOO D ORDERABLES Performing Organization Address City/[facility]/ZIP Co de Phone Number [facility] [address] [address], [facility] [phone] * (ABNORMAL) *UA reflex to Microscopic (12/25/2014 10:05 PM CDT) Color Urine Yellow [facility] Appearance Urine Clear [facility] Glucose Urine 100(A) NEG mg/dL [facility] Bilirubin Urine Negative NEG [facility] Ketones Urine Negative NEG mg/dL [facility] Specific Mutual Urine 1.010 1.003 - 1.035 [facility] Blood Urine Negative NEG [facility] pH Urine 6.0 5.0 - 7.0 pH [facility] Protein Albumin Urine Negative NEG mg/dL [facility] Urobilinogen Urine 0.2 0.2 - 1.0 EU/dL [facility] Nitrite Urine Negative NEG [facility] Leukocyte Esterase Urine Negative NEG [facility] Source Midstream Urine [facility] 12/25/2014 10:0 5 PM CDT 12/25/2014 10:13 PM CDT Gem Ribeiro MD LAB - URINE ORDERAB LES Performing Organization Address City/[facility] Co de Phone Number [facility] [address] [address], [facility] [phone] from Last 3 Months or Most Recently Relevant to Health Maintenance Care Teams Plant Attendant Relationship Specialty Start Date End Date Nikita Gamble MD [facility] [address] [place] [address] PCP - General Family Medicine 05/26/20 Jocelyn Davidson, RD [facility] [address] [place] [address] Housing Relocation Dietitian, Registered 05/25/18 Mikki Blevins MD [address] [place] [address] Endocrinology, Diabetes, and Metabolism 05/07/21
--- OUTSIDE RECORDS SUMMARY | 2024-01-01 14:44 | XMS_ITS | Encounter Summary ---
[facility] Organization [facility] Address [address] [place] [address] Care Team Providers Care Mail Carrier Technician Name Role Phone Nikita Gamble MD Primary Care Provider [phone] Encounter Details Date Type Department Care Team (Late Contact Info) Description 10/27/2023 3:00 PM CDT Lab Visit Specialty Center Laboratory [address] [facility]. [place], [place] [id number] Routine medical exam Social History Tobacco Use [...] [facility] UroGy[facility]cology [address] [place] [address] Candice Coates MD [address] [address] documented as of this encounter Procedures Procedure Name Priority Date/Time Associated Diagnosis Comments DNA ANALYSIS DISCRETE SEQUENCE VARIATION PANEL (BLOOD) Routine 10/27/2023 3:14 PM CDT Routine medical exam documented in this encounter Results * DNA Analysis Discrete Sequence Variation Panel (Blood) (Initial) (10/27/2023 3:14 PM CDT) Date Sample Received at Testing Lab 10/29/2023 12/28/2023 4:09 PM CDT [facility] Familial Hypercholesterolemia Not Detected 12/28/2023 4:09 PM CDT [facility] Comment: Pathogenic variant not detected. Genes Tested: BRCA1, BRCA2, MLH1, MSH2, MSH6, PMS2, EPCAM, APOB, LDLR, LDLRAP1, PCSK9 Test Description: [facility] Tier One Population Screen is a screening [...] This test was developed and validated by [facility]. This test has not been cleared or approved by the [place] Food and Drug Administration (FDA). The [facility] laboratory is accredited by the College of [place] (CAP) and certified under the Clinical Laboratory Improvement Amendments (CLIA #: [id number]) to perform high-complexity clinical tests. This test is used for clinical purposes. It should not be regarded as investigational or for research. Methods and Limitations: Extracted DNA is enriched for targeted regions and then sequenced using the [facility] Exome+ (R) assay on an Illumina DNA sequencing system. Data is then aligned to a modified version of GRCh38 and all genes are analyzed using the MIREYA transcript and MIREYA Plus Clinical transcript, when available. Small variant calling is completed using a customized version of [employer]'s AimWithq software, augmented by a proprietary small variant [...] is based upon guidelines published by the [place] [employer] (ACMG) and the Association for Molecular Pathology (AMP) or their modification by ClinGen Variant Curation Expert Panels when available. Interpretation is limited to the transcripts indicated on the report and +/- 10 bp into intronic regions, except as noted below. [facility] variant classifications include pathogenic, likely pathogenic, variant [...] the promoter. Sequencing Location: Sequencing done at [facility]., [address] [place] [address], [address], [place] [address] ([facility]# [id number]) Designation: Venkata Ma, PhD, [facility] Email: Hereditary Breast and Ovarian Cancer Syndrome Not Detected 12/28/2023 4:09 PM CDT [facility] Comment:Pathogenic variant n ot detected. Pleitez Syndrome Not Detected 12/28/2023 4:09 PM CDT [facility] Comment:Pathogenic variant n ot detected. Blood or Saliva VENOUS BLOOD SPECIMEN / Unknown 10/27/2023 3:14 PM CDT 10/27/2023 3:14 PM CDT Everardo Go MD LAB_1 [facility] [address] [facility] [address] [place] [address] documented in this encounter Visit Diagnoses Diagnosis Routine medical exam Routine general medical examination at a health care facility documented in this encounter Additional Health Concerns Infection Onset Date Last Indicated Resolved Time MRSA Comment:Beronica 12-29-14, 01/06/16 12/30/2014 12/30/2014 documented as of this encounter Care Teams Mail Carrier Technician Relationship Specialty Start Date End Date Nikita Gamble MD [address] [place] [address] PCP - General Family Practice 06/23/23 documented as of this encounter
--- OUTSIDE RECORDS SUMMARY | 2024-01-01 14:44 | XMS_ITS | Encounter Summary ---
Author Organization [facility] Address [address] [place] [address] Care Team Providers Care Hostess Host Name Role Phone Nikita Gamble MD Primary Care Provider Encounter Details Date Type Department Care Team (Late st Contact Info) Description 12/07/2023 Telephone Specialty Center [address] [facility] [address] [place] [address]. [place], [place] [phone] Logan Parra PA-C [address] [place] [address] Social History Tobacco Use Types Packs/Day Years [...] notes and lab attached). Faxed back at [phone]. Placed for scanning. Alex Villalba RN 12/07/2023 2:00 PM documented in this encounter Plan of Treatment Upcoming Encounters Date Type Department Care Team (Late st Contact Info) Description 01/09/2024 1:15 PM CDT [facility] UroGynecology [address] [place] [address] Candice Coates MD [address] [facility] [address] [place] [address] documented as of this encounter Visit Diagnoses Not on filedocumented in this encounter Additional Health Concerns Infection Onset Date Last Indicated Resolved Time MRSA Comment:Beronica 12-29-14, 01/06/16 12/30/2014 12/30/2014 documented as of this encounter Care Teams Hostess Host Relationship Specialty Start Date End Date Nikita Gamble MD [address] [place] [address] PCP - General Family Practice 06/23/23 documented as of this encounter
--- OUTSIDE RECORDS SUMMARY | 2024-01-01 14:44 | XMS_ITS | Encounter Summary ---
Author Organization [facility] Address [address] [place] [address] Care Team Providers Care Hair Stylist Name Role Phone Nikita Gamble MD Primary Care Provider [phone] Reason for Referral * Procedure/Equipment (Routine) - Incomplete Specialty Diagnoses / Procedures Referred By Contac t Referred To Contact Diagnoses Postmenopausal bleeding Procedures OBGYN Pelvic/Civil Engineering Specialist Ultrasound Candice Coates MD [address] [place] [address] Referral ID Status Reason Start Date Expiration Date V isits Requested Visits Authorized [id number] Incomplete 10/17/2023 01/15/2025 1 1 Reason for Visit * Reason Comments CONSULT UUI, several years, worsening. Hx observed rectocele, poss cystocele. Endorses GAURAV, nocturia, incomplete bladder emptying, BM concerns. Denies baseline urgency/frequency, UI w/o sensation, vaginal bulging. Encounter Details Date Type Department Care Team (Late st Contact Info) Description 10/17/2023 10:00 AM CDT Office Visit [facility] [address] [place] [address] Candice Coates MD [address] [place] [address] Postmenopausal bleeding (Primary Dx); OAB (overactive [...] Patient Instructions * Patient Instructions* Niurka Cook, QUALITY MANAGEMENT NURSE - 10/17/2023 10:00 AM CDT URODYNAMIC TESTING INFORMATION AND PREPARATION Your physician has ordered Urodynamic testing in order to evaluate your urinary function. This testing is performed at the Urology clinic at [address] [place] [address]. During this test we will try to [...] Wednesdays. Please contact the Urology department at [phone] to schedule your Urodynamics appointment and a [...] testing (also called cystometry) please go to [email or web address] and type in the search box ???urodynamics?? . If there are special needs that you have or questions you need answered, please contact [phone]. INSTRUCTIONS ON HOW TO COMPLETE YOUR BLADDER [...] available to your physician and the urodynamics tax examining technician performing theevaluation. Thank you for your cooperation Bladder Diary Date: Time Drinks Urine Accidental Leaks Did you feel an urge to go? What were you doing at the time of leaking? What kind? (water, pop, milk, etc) How Much? How many times? How much (oz, cc, or ml)? How much? Tecumseh one Tecumseh one (sneezing, exercising, having sex, lifting, etc.) [...] How many times? How much? How much? Tecumseh one Tecumseh one (sneezing, exercising, having sex, lifting, etc.) [...] Sm med lg Yes No Please call [phone] for follow up and new patient scheduling for [facility] Urogynecology. Instructions Your follow up appointment will be scheduled with one of the Urogynecology care team members. This may be one of our physician assistants. They are always in direct communication with your physician who remains responsible for your Urogynecology care at [facility]. Lab or Imaging Results If labs were ordered, you will receive the results via your [employer]) account if you have one. Results are automatically released to your [employer]) account once available. This means that you may see your results before we have had a chance to review them. After the results become available, comments from our team are typically posted to your [employer]) account within 2-5 business days. We usually wait until all or nearly all of the lab results have returned and make a onetime comment rather than comment on each lab result individually. Please donot send a [employer] message requesting follow up/advice on labs or [...] you. If you do not have a [employer] account, results typically arrive by mail within [...] you! Get Cost of Care Estimates - [phone] The health insurance marketplace has changed dramatically in the last few years. Our cost of care service will provide estimates over the phone for treatments or procedures billed through [facility]. To receive a cost estimate, simply call [phone] during regular business hours. If you have insurance coverage, you will need to verify your policy of coverage with your health plan by calling the number located on the back of your insurance card and talking to member services. documented in this encounter Progress Notes * Candice Coates MD - 10/17/2023 10:00 AM CDT [facility] Urogynecology New Patient Consult Marnie Duvall [...] seen at another urogynecologist Never seen at [facility] urogynecology but was referred Prior [...] tablet pregabalin (LYRICA) 300 MG capsule rizatriptan (MAXALT-PYROTECHNIC ASSEMBLER) 10 MG disintegrating tablet topiramate (TOPAMAX) 100 [...] Orders ICD-10-CM 1. Postmenopausal bleeding N95.0 OBGYN Pelvic/Civil Engineering Specialist Ultrasound 2. OAB (overactive bladder) N32.81 [...] in the bladder today Candice Coates MD [facility] Urogynecology/Female Pelvic Medicine and Reconstructive Surgery This note contains medical terminology which is meant for communication between health care physicians and providers. Please note that vocabulary/phrasing/abbreviations may not carry the same definitions as they would in normal conversational speech. This note was created using medical dictation software. Please excuse any typographical errors in voltmeter operator. documented in this encounter Plan of Treatment Upcoming Encounters Date Type Department Care Team (Late st Contact Info) Description 01/09/2024 1:15 PM CDT [facility] UroGynecology [address] [place] [address] Candice Coates MD [address] [place] [address] documented as of this encounter Procedures Procedure Name Priority Date/Time Associated Diagnosis Comments URINALYSIS ROUTINE, MICRO/CULTURE IF POS Routine 10/17/2023 11:24 AM CDT OAB (overactive bladder) Urge incontinence documented in this encounter Results * (ABNORMAL) OBGYN Pelvic/Civil Engineering Specialist Ultrasound (10/17/2023 1:39 PM CDT) Uterus AP Diameter (Height) 2.60 cm EXTERNAL RESULTS Uterus Longitudinal Diameter (Length) 6.40 cm EXTERNAL RESULTS Uterus Transverse Diameter (Width) 3.50 cm EXTERNAL RESULTS Uterus Volume 30.49 ml CHIN STRAP MAKER AL RESULTS Endometrium Thickness 6.10 mm EXTERNAL [...] from the original result was not included. BRICK MOLDER HAND Ultrasound Exam performed on: ??10/17/2023 Referring provider: Candice Coates MD Referring clinic: [facility]YNECOLOGY Clinical indications: Postmenopausal bleeding Insole Tack Puller Hand(s) initials: The pelvic organs are imaged using: [...] up with referring provider. ??Recommend consultation with automobile club travel counselor for hysteroscopy. ??Patient requested expedited surgery scheduling therefore surgical orders were placed. ?? Carol Phillips MD Candice Coates MD RAD US * (ABNORMAL) Urinalysis Routine, Micro/Culture if Pos: Straight catheter (10/17/2023 11:24 AM CDT) Urine Culture Comment Urinalysis results do not meet criteria for urine culture reflex. 10/17/2023 11:41 AM [facility] Urine Color Yellow 10/17/2023 11:41 AM [facility] Urine Clarity Clear Clear 10/17/2023 11:41 AM [facility] Specific Strum, Urine <=1.005(A) 1.005 - 1.030 10/17/2023 11:41 AM [facility] PH Urine 6.0 5.0 - 8.0 10/17/2023 11:41 AM [facility] Protein, Urine Qual (mg/dL) Negative Neg/Trace 10/17/2023 11:41 AM [facility] Glucose Urine Qual (mg/dL) Negative Negative 10/17/2023 11:41 AM [facility] Ketones, Urine (mg/dL) Negative Negative 10/17/2023 11:41 AM [facility] Urobilinogen, Urine (EU/dL) 0.2 <2.0 10/17/2023 11:41 AM [facility] Bilirubin Urine Negative Negative 10/17/2023 11:41 AM [facility] Blood, Urine Negative Neg/Trace 10/17/2023 11:41 AM [facility] Nitrite Urine Negative Negative 10/17/2023 11:41 AM [facility] Leukocyte Est. Negative Negative 10/17/2023 11:41 AM [facility] Urine Source Straight catheter 10/17/2023 11:41 AM [facility] Urine (Straight catheter) Non-blood Collection / Unknown 10/17/2023 11:24 AM CDT 10/17/2023 11:39 AM CDT Candice Coates MD LAB_1 [facility] [address] documented in this encounter Visit Diagnoses [...] documented as of this encounter Care Teams Hair Stylist Relationship Specialty Start Date End Date Nikita Gamble MD [address] [place] [address] PCP - General Family Practice 06/23/23 documented as of this encounter
--- OUTSIDE RECORDS SUMMARY | 2024-01-01 14:44 | XMS_ITS | Encounter Summary ---
Author Organization [facility] Address [address] [place] [address] Care Team Providers Care Dialysis Social Worker Name Role Phone Nikita Gamble MD Primary Care Provider [phone] Reason for Visit * Reason Comments Surgery Scheduling Encounter Details Date Type Department Care Team ([facility] st Contact Info) Description 10/21/2023 [facility] Obstetrics and Gynecology [address] [place] [address]. [place], [place] [phone] Carol Phillips MD [address] [place] [phone] Surgery Scheduling Social History Tobacco Use Types [...] 10/21/2023 12:49 PM CDT Surgery scheduled at [facility] on 12/14/23 for HYSTEROSCOPY WITH MYOSURE, polypectomy. Pre-op scheduled. Brochure sent via getupp. Merlene Cornell 10/21/2023, 12:50 PM. documented in this encounter Plan of Treatment Upcoming Encounters Date Type Department Care Team (Late st Contact Info) Description 01/09/2024 1:15 PM CDT [facility] UroGynecology [address] [place] [address] Candice Coates MD [address] [facility] [address] [place] [address] documented as of this encounter Visit Diagnoses Not on filedocumented in this encounter Additional Health Concerns Infection Onset Date Last Indicated Resolved Time MRSA Comment:Beronica 12-29-14, 01/06/16 12/30/2014 12/30/2014 documented as of this encounter Care Teams Dialysis Social Worker Relationship Specialty Start Date End Date Nikita Gamble MD [address] [place] [address] PCP - General Family Practice 06/23/23 documented as of this encounter
--- OUTSIDE RECORDS SUMMARY | 2024-01-01 14:44 | XMS_ITS | Encounter Summary ---
Author Organization [facility] Address [address] [place] [address] Care Team Providers Care Psychologist Clinical Name Role Phone Nikita Gamble MD Primary Care Provider [phone] Reason for Visit * Auth/Cert (Routine) Specialty Diagnoses / Procedures Referred By Contac t Referred To Contact Diagnoses Postmenopausal bleeding . Procedures HYSTEROSCOPY WITH MYOSURE, polypectomy Referral ID Status Reason Start Date Expiration Date Visits Re quested Visits Authorized [id number] 1 1 Encounter Details Date Type Department Care Team (Late st Contact Info) Description 12/14/2023 8:02 AM CDT - 12/14/2023 12:46 PM CDT Hospital Encounter [facility] Operating Room [address] [place] [address] Carol Phillips MD [address] [place] [address] Postmenopausal bleeding Discharge Disposition: Home Social History [...] is after hours call the Careline at [phone]. [facility] Surgery: Please contact your clinic during regular [...] Tab 3 04/30/2015 Blood Glucose Monitoring Suppl (edelight CONTOUR MONITOR) W/DEVICE KIT kit As instructed [...] 1 diabetes mellitus with diabetic neuropathy, unspecified ([facility]) Use for continuous glucose monitoring. [...] Insulin-Dependent Diabetes 15 mL 11 06/11/2015 lancets (edelight MICROLET LANCETS) Use as directed. Pharmacy dispense [...] by mouth two times a day. rizatriptan (MAXALT-CLOTH SECONDS SORTER) 10 MG disintegrating tablet Take 1 Tablet [...] Sloan RN - 12/14/2023 11:32 AM CDT [facility] Progress Note Patient Name: Marnie Duvall Date of : 1965 Fluid deficit 570cc post hysteroscopy per Dr. Phillips. Pina Sloan RN 12/14/2023 at 11:32 AM documented in this encounter Plan of Treatment Upcoming Encounters Date Type Department Care Team (Late st Contact Info) Description 01/09/2024 1:15 PM CDT [facility] UroGy[facility]cology [address] [place] [address] Candice Coates MD 26[address] [facility] [address] [place], [place] [phone] documented as of this encounter Procedures Procedure [...] AM CDT) Case Report Surgical Pathology ?Case: [id number] ? Authorizing Provider: ??Carol Phillips MD ?Collected: ? 12/14/2023 1104 ? Ordering Location: ? [facility] Operating Room ?Received: ?12/14/2023 1132 ? Pathologist: ? Joann Mckeon MD ? Specimens: ?? A) - Labia, left, Left superior labial biopsy ? B) - Vulva, Left vestibule ? C) - Uterus, Endometrial currettings ? 12/22/2023 1:37 PM [facility] FINAL DIAGNOSIS A. Skin, Labia, [...] Clinical correlation is recommended. 12/22/2023 1:37 PM [facility] Clinical Information Postmenopausal bleeding 12/22/2023 1:37 PM [facility] Microscopic Description A. Microscopic examination including multiple deeper recut sections is performed. B/C. Microscopic examination is performed. 12/22/2023 1:37 PM [facility] Special Stains The stain controls have been reviewed and stain appropriately. 12/22/2023 1:37 PM [facility] Gross Description A: The specimen [...] in 1 cassette. TK 12/22/2023 1:37 PM [facility] Embedded Images 12/22/2023 1:37 PM [facility] Tissue GENITAL LABIUM STRUCTURE / Unknown 12/14/2023 11:04 AM CDT 12/14/2023 11:32 AM CDT Tissue specimen (specimen) VULVAL STRUCTURE / Unknown 12/14/2023 11:09 AM CDT 12/14/2023 11:32 AM CDT Tissue specimen (specimen) UTERINE STRUCTURE / Unknown 12/14/2023 11:16 AM CDT 12/14/2023 11:32 AM CDT Carol Phillips MD LAB PATHOLOGY [address] [address], [facility] * HPV Genotyping PCR (Cervical/Endocervical ONLY) (12/14/2023 10:52 AM CDT) HPV High Risk Type 16 PCR Not Detected Not detected 12/29/2023 12:08 PM CDT [facility] HPV High Risk Type 18 PCR Not Detected Not Detected 12/29/2023 12:08 PM CDT [facility] HPV High Risk Other Than 16/18 Not Detected Not detected 12/29/2023 12:08 PM CDT [facility] Cervical Broom ENTIRE ENDOCERVIX / Unknown 12/14/2023 10:52 AM CDT 12/14/2023 10:57 AM CDT [facility] - 12/29/2023 12:08 PM CDT [facility] [...] Carol Phillips MD LAB_1 Performing Organization Address City/State/[facility] [place] [address], [facility] * PAP Test (12/14/2023 10:52 AM CDT) Case Report Pap ? Case: [id number] ? Authorizing Provider: ??Carol Phillips MD ?Collected: ? 12/14/2023 1052 ? Ordering Location: ? Operating Room ?Received: ?12/14/2023 1155 ? First Screen: ?Laurita Browne CT ? (ASCP) ? Specimen: ?Pap Test, Routine, Cervix/Endocervix ? 12/29/2023 12:08 PM [facility] Pap Specimen Adequacy Satisfactory for evaluation, endocervical/herrera sformation zone component present. 12/29/2023 12:08 PM [facility] Pap Interpretation (NILM) Negative for intraepithelial lesion or malignancy. 12/29/2023 12:08 PM [facility] Pap Disclaimer The Pap test is a screening test to aid in the detection of cervical and vaginal cancers and their precursor lesions. It is not a diagnostic procedure and should not be used as the sole means of detecting malignancy. Both false-positive and false-negative results may occur. 12/29/2023 12:08 PM [facility] Gross Description The specimen is received in SurePath fixative and properly labeled. 1 Pap-stained SurePath slide is prepared. 12/29/2023 12:08 PM [facility] Embedded Images 12:08 PM [facility] Other Specimen Type ENTIRE ENDOCERVIX / Unknown 12/14/2023 10:52 AM CDT 12/14/2023 11:55 AM CDT Comment:LMP: No LMP recorded . Patient is postmenopausal. Carol Phillips MD LAB PATHOLOGY [address] * Glucose, Whole Blood POCT (12/14/2023 9:03 AM CDT) Glucose, Whole Blood 174 70 - 180 mg/dL 12/14/2023 9:05 AM CDT [facility] Performing Location [facility] PSCU 12/14/2023 9:05 AM CDT [facility] Blood 12/14/2023 9:03 AM CDT 12/14/2023 9:05 AM CDT Carol Phillips MD LAB_1 Performing Organization Address [facility] Co de Phone Number [address] documented in this encounter Visit Diagnoses [...] (SUBLIMAZE) injection 25-50 mcg 25-50 mcg, Intravenous, [id number], Pain, Starting on Tue12/14/23 at 1105, Until [...] (NORMODYNE) injection 5 mg 5 mg, Intravenous, [id number], Blood Pressure >, Hypertension SBP greater than [...] (SUBLIMAZE) injection 25-50 mcg 25-50 mcg, Intravenous, [id number], Pain, Starting on Tue12/14/23 at 1105, Until [...] (NORMODYNE) injection 5 mg 5 mg, Intravenous, [id number], Blood Pressure >, Hypertension SBP greater than [...] er: Carol Phillips MD)1114 (Given - Provider: Caorl Phillisp MD) lubricant (SURGILUBE/KY JELLY) gel ONCE PRN, [...] as of this encounter Care Teams Psychologist Clinical Relationship Specialty Start Date End Date Nikita Gamble MD [address] [place] [address] PCP - General Family Practice 06/23/23 documented as of this encounter
--- OUTSIDE RECORDS SUMMARY | 2024-01-01 14:45 | XMS_ITS | Encounter Summary ---
Author Organization [place] Address [address] [place] [address]. [place] [address] Care Team Providers Care Teasel Setter Name Role Phone Jocelyn Davidson RD Unavailable [phone] Nikita Gamble MD Primary Care Provider [phone] Naveen Casiano MD Unavailable [phone] Mikki Blevins MD Unavailable [phone] Mikki Blevins MD Unavailable [phone] Mindi Llanes PA-C Unavailable [phone] Encounter Details Date Type Department Care Team (Late st Contact Info) Description 02/05/2022 [facility] Medical Advice [facility] [address] [place] [address] Liberty Gilliam MA Social History Tobacco Use Types Packs/Day Years Used Date Smoking Tobacco: Never Smokeless Tobacco: Never Alcohol Use Standard Drinks/Week Comments Yes 0 (1 standard drink = 0.6 oz pur e alcohol) rare PHQ-2 Answer Date Recorded PHQ-2 Score 0 02/26/2020 Sex and Gender Information Value Date Recorded Sex Assigned at Female 03/04/2020 12:33 PM MASON HELPER Gender Identity Female 03/04/2020 12:33 PM MASON HELPER Sexual Orientation Straight 03/04/2020 12 :33 PM MASON HELPER documented as of this encounter Plan of Treatment Not on file documented as of this encounter Visit Diagnoses Not on filedocumented in this encounter Additional Health Concerns Assessment Noted Time PHQ-9 Depression Total Score: 0 02/26/20 20 1:30 PM MASON HELPER documented as of this encounter Care Teams Teasel Setter Relationship Specialty Start Date End Date Nikita Gamble MD [place] [address] [place] [id number] PCP - General Family Medicine 05/26/20 Jocelyn Davidson, RENATA [place] [address] [place] [id number] Morphology Teacher Dietitian, Registered 05/25/18 [place] [address] [address] [place] [address] Assigned PCP 11/16/20 12/18/23 Mikki Blevins MD [address] [place] [address] Endocrinology, Diabetes, and Metabolism 05/07/21 [place] [address] Assigned Endocrinology Provider 08/02/21 01/28/23 Mindi Llanes PA-C [address] [facility] [address] [address] [place] [address] Assigned Surgical Provider 09/26/21 08/17/23 documented as of this encounter
--- OUTSIDE RECORDS SUMMARY | 2024-01-01 14:45 | XMS_ITS | Encounter Summary ---
Author Organization [place] Address [address] [place] [address]. [place] [address] Care Team Providers Care Commercial Roofing Estimator Name Role Phone StuartJocelyn desouza Bran YANEZ Unavailable [phone] Nikita Gamble MD Primary Care Provider [phone] Naveen Casiano MD Unavailable [phone] Mikki Blevins MD Unavailable [phone] Mikki Blevins MD Unavailable [phone] Mindi Llanes PA-C Unavailable [phone] Encounter Details Date Type Department Care Team (Late st Contact Info) Description 02/11/2022 [facility] Medical Advice [facility] [address] [place] [address] Alix Marquez, VASQUEZ [facility] [address] [place] [address] [address] [place] [address] Social History Tobacco Use Types Packs/Day Years Used Date Smoking Tobacco: Never Smokeless Tobacco: Never Alcohol Use Standard Drinks/Week Comments Yes 0 (1 standard drink = 0.6 oz pur e alcohol) rare PHQ-2 Answer Date Recorded PHQ-2 Score 0 02/26/2020 Sex and Gender Information Value Date Recorded Sex Assigned at Female 03/04/2020 12:33 PM HRIS ANALYST Gender Identity Female 03/04/2020 12:33 PM HRIS ANALYST Sexual Orientation Straight 03/04/2020 12 :33 PM HRIS ANALYST documented as of this encounter Plan of Treatment Not on file documented as of this encounter Visit Diagnoses Not on filedocumented in this encounter Additional Health Concerns Assessment Noted Time PHQ-9 Depression Total Score: 0 02/26/20 20 1:30 PM HRIS ANALYST documented as of this encounter Care Teams Commercial Roofing Estimator Relationship Specialty Start Date End Date Nikita Gamble MD [place] [address] [place] [address] PCP - General Family Medicine 05/26/[address] [place] [address] Buffing Wheel Former Machine Dietitian, Registered 05/25/18 [place] [address] [place] [address] Assigned PCP 11/16/20 12/18/23 Mikki Blevins MD [address] [place] [address] Endocrinology, Diabetes, and Metabolism 05/07/21 Mikki Blevins [place] [address] Assigned Endocrinology Provider 08/02/21 01/28/23 Mindi Llanes PA-C [address] [facility] [address] [place] [address] Assigned Surgical Provider 09/26/21 08/17/23 documented as of this encounter
--- OUTSIDE RECORDS SUMMARY | 2024-01-01 14:45 | XMS_ITS | Encounter Summary ---
Author Organization [facility] Address [address] [place] [address]. [place] [address] Care Team Providers Care Grain Commodity Manager Name Role Phone Antonio Annette Monroe APRN BRICK DROPPER Unavailable Goran Lloyd MD Primary Care Provider [phone] Unavailable [phone] Tamar Murphy APRN BRICK DROPPER Unavailable Nikita Gamble MD Primary Care Provider Naveen Casiano MD Unavailable [phone] Harlan Lin MD Unavailable Milagro vailable Mikki Blevins MD Unavailable [phone] Mikki Blevins MD Unavailable [phone] Mindi Llanes PA-C Unavailable [phone] Encounter Details Date Type Department Care Team (Late st Contact Info) Description 10/17/2018 [facility] [address] [address] Ashok Bella, RN Social History Tobacco Use Types Packs/Day Years Used Date Smoking Tobacco: Never Smokeless Tobacco: Never Alcohol Use Standard Drinks/Week Comments Yes 0 (1 standard drink = 0.6 oz pur e alcohol) rare Sex and Gender Information Value Date Recorded Sex Assigned at Female 03/04/2020 12:33 PM COMMUNITY AFFAIRS MANAGER Gender Identity Female 03/04/2020 12:33 PM COMMUNITY AFFAIRS MANAGER Sexual Orientation Straight 03/04/2020 12 :33 PM COMMUNITY AFFAIRS MANAGER documented as of this encounter Plan of Treatment Not on file documented as of this encounter Visit Diagnoses Not on filedocumented in this encounter Additional Health Concerns Infection Onset Date Last Indicated Resolved Time Rule Out COVID-19 02/26/2020 02/26/2020 02/27/2020 4:32 PM COMMUNITY AFFAIRS MANAGER documented as of this encounter Care Teams Grain Commodity Manager Relationship Specialty [place] [address] [place], [place] [id number] PCP - General Family Practice 12/29/17 05/21/20 Nikita Gamble MD [address] [place] [phone] PCP - General Family Medicine 05/26/20 Annette Alvarez APRN BRICK DROPPER [address] [place], [place] [id number] Nurse Practitioner Clinical Nurse Specialist 03/22/17 10/21/[address] [place] [id number] Floor Service Worker Spring Dietitian, Registered 05/25/18 Tamar [place] APRN BRICK DROPPER [address] [place] [phone] Assigned PCP 02/08/20 11/15/20 [place] [address] [place], [place] [address] Assigned PCP 11/16/20 12/18/23 Harlan Lin MD NO INFO AVAILABLE Assigned Endocrinology Provider 12/07/20 08/01/21 Mikki Blevins MD [address] [place] [address] Endocrinology, Diabetes, and Metabolism 05/07/21 [place] [address] Assigned Endocrinology Provider 08/02/21 01/28/23 Mindi Llanes PA-C [address] [place] [address] Assigned Surgical Provider 09/26/21 08/17/23 documented as of this encounter
--- OUTSIDE RECORDS SUMMARY | 2024-01-01 14:45 | XMS_ITS | Encounter Summary ---
Author Organization [facility] Address [address] [place] [address]. [place] [address] Care Team Providers Care Finisher Machine Name Role Phone Jocelyn Davidson RENATA Unavailable [phone] Nikita Gamble MD Primary Care Provider Naveen Casiano MD Unavailable [phone] Harlan Lin MD Unavailable Milagro vailable Mikki Blevins MD Unavailable [phone] Mikki Blevins MD Unavailable [phone] Mindi Llanes PA-C Unavailable [phone] Encounter Details Date Type Department Care Team (Late st Contact Info) Description 12/02/2020 [facility] Medical Advice [address] [phone] Tamar Tristan Social History Tobacco Use Types Packs/Day Years Used Date Smoking Tobacco: Never Smokeless Tobacco: Never Alcohol Use Standard Drinks/Week Comments Yes 0 (1 standard drink = 0.6 oz pur e alcohol) rare PHQ-2 Answer Date Recorded PHQ-2 Score 0 02/26/2020 Sex and Gender Information Value Date Recorded Sex Assigned at Female 03/04/2020 12:33 PM LINE HAUL TRUCK DRIVER Gender Identity Female 03/04/2020 12:33 PM LINE HAUL TRUCK DRIVER Sexual Orientation Straight 03/04/2020 12 :33 PM LINE HAUL TRUCK DRIVER COVID-19 Exposure Response Date Recorded In [...] Total Score: 0 02/26/20 20 1:30 PM LINE HAUL TRUCK DRIVER documented as of this encounter Care Teams Finisher Machine Relationship Specialty Start Date End Date Nikita Gamble MD [place] [address] [place] [address] PCP - General Family Medicine 05/26/[address] [place] [address] Cafe Attendant Dietitian, Registered 05/25/18 [place] [address] [place] [address] Assigned PCP 11/16/20 12/18/23 Harlan Lin MD NO INFO AVAILABLE Assigned Endocrinology Provider 12/07/20 08/01/21 Mikki Blevins MD [address] [place] [address] Endocrinology, Diabetes, and Metabolism 05/07/21 [place] [address] Assigned Endocrinology Provider 08/02/21 01/28/23 Mindi Llanes PA-C [address] [place] [address] [place] [address] Assigned Surgical Provider 09/26/21 08/17/23 documented as of this encounter
--- OUTSIDE RECORDS SUMMARY | 2024-01-01 14:45 | XMS_ITS | Encounter Summary ---
Author Organization [facility] Address [address] [place] [address]. [place] [address] Care Team Providers Care Publication Director Name Role Phone Antonio Annette Monroe APRN CIRCULATION SUPERVISOR Unavailable Goran Lloyd MD Primary Care Provider Jocelyn Davidson RD Unavailable [phone] Tamar Murphy APRN CIRCULATION SUPERVISOR Unavailable Nikita Gamble MD Primary Care Provider Naveen Casiano MD Unavailable [phone] Harlan Lin MD Unavailable Milagro vailable Mikki Blevins MD Unavailable [phone] Mikki Blevins MD Unavailable [phone] Mindi Llanes PA-C Unavailable [phone] Encounter Details Date Type Department Care Team (Late st Contact Info) Description 2020 [facility] [address] [address] Tamra [place] APRN CIRCULATION SUPERVISOR [address] [place] [address] Social History Tobacco Use Types Packs/Day Years Used Date Smoking Tobacco: Never Smokeless Tobacco: Never Alcohol Use Standard Drinks/Week Comments Yes 0 (1 standard drink = 0.6 oz pur e alcohol) rare PHQ-2 Answer Date Recorded PHQ-2 Score 0 02/26/2020 Sex and Gender Information Value Date Recorded Sex Assigned at Female 03/04/2020 12:33 PM CAR WASH ATTENDANT AUTOMATIC Gender Identity Female 03/04/2020 12:33 PM CAR WASH ATTENDANT AUTOMATIC Sexual Orientation Straight 03/04/2020 12 :33 PM CAR WASH ATTENDANT AUTOMATIC COVID-19 Exposure Response Date Recorded In the last month, have you been in contact with someone who was confirmed or suspected to have Coronavirus / COVID-19? No / Unsure 02/03/2020 12:21 PM CAR WASH ATTENDANT AUTOMATIC documented as of this encounter Plan of Treatment Not on file documented as of this encounter Visit Diagnoses Not on filedocumented in this encounter Additional Health Concerns Assessment Noted Time PHQ-9 Depression Total Score: 0 02/26/20 20 1:30 PM CAR WASH ATTENDANT AUTOMATIC documented as of this encounter Care Teams Publication Director Relationship Specialty [place] [address] [place] [address] PCP - General Family Practice 12/29/17 05/21/20 Nikita Gamble MD [address] [place] [address] PCP - General Family Medicine 05/26/20 Annette Alvarez APRN CIRCULATION SUPERVISOR [address] [place] [address] Nurse Practitioner Clinical Nurse Specialist 03/22/17 10/21/[address] [place] [address] Dog Pound Attendant Dietitian, Registered 05/25/18 Tamar [place] APRN CIRCULATION SUPERVISOR [address] [place] [address] Assigned PCP 02/08/20 11/15/20 [place] [address] [place] [address] Assigned PCP 11/16/20 12/18/23 Harlan Lin MD NO INFO AVAILABLE Assigned Endocrinology Provider 12/07/20 08/01/21 Mikki Blevins MD [address] [place] [address] Endocrinology, Diabetes, and Metabolism 05/07/21 Mikki Blevins MD [facility] [place] [address] Assigned Endocrinology Provider 08/02/21 01/28/23 Mindi Llanes PA-C [address] [place] [address] Assigned Surgical Provider 09/26/21 08/17/23 documented as of this encounter
--- OUTSIDE RECORDS SUMMARY | 2024-01-01 14:45 | XMS_ITS | Encounter Summary ---
Author Organization [facility] Address [address] [place] [address]. [place] [address] Care Team Providers Care Wind Field Manager Name Role Phone Stuart Jocelyn Bran YANEZ Unavailable [phone] Nikita Gamble MD Primary Care Provider Naveen Casiano MD Unavailable [phone] Mikki Blevins MD Unavailable [phone] Mikki Blevins MD Unavailable [phone] Mindi Llanes PA-C Unavailable [phone] Encounter Details Date Type Department Care Team (Late st Contact Info) Description 02/11/2022 [facility] Advice [facility] [address] [place] [address] Jammie Mohr, RN Social History Tobacco Use Types Packs/Day Years Used Date Smoking Tobacco: Never Smokeless Tobacco: Never Alcohol Use Standard Drinks/Week Comments Yes 0 (1 standard drink = 0.6 oz pur e alcohol) rare PHQ-2 Answer Date Recorded PHQ-2 Score 0 02/26/2020 Sex and Gender Information Value Date Recorded Sex Assigned at Female 03/04/2020 12:33 PM COMBINATION BUILDING INSPECTOR Gender Identity Female 03/04/2020 12:33 PM COMBINATION BUILDING INSPECTOR Sexual Orientation Straight 03/04/2020 12 :33 PM COMBINATION BUILDING INSPECTOR documented as of this encounter Plan of Treatment Not on file documented as of this encounter Visit Diagnoses Not on filedocumented in this encounter Additional Health Concerns Assessment Noted Time PHQ-9 Depression Total Score: 0 02/26/20 20 1:30 PM COMBINATION BUILDING INSPECTOR documented as of this encounter Care Teams Wind Field Manager Relationship Specialty Start Date End Date Nikita Gamble MD [place] [address] [place] [address] PCP - General Family Medicine 05/26/[address] [place] [address] [place] [address] Physician Support Coordinator Dietitian, Registered 05/25/18 [place] [address] [place] [address] Assigned PCP 11/16/20 12/18/23 Mikki Blevins MD [address] [place] [address] Endocrinology, Diabetes, and Metabolism 05/07/21 [place] [address] Assigned Endocrinology Provider 08/02/21 01/28/23 Mindi Llanes PA-C [address] [facility] [address] [address] [place] [address] Assigned Surgical Provider 09/26/21 08/17/23 documented as of this encounter
--- OUTSIDE RECORDS SUMMARY | 2024-01-01 14:45 | XMS_ITS | Encounter Summary ---
Author Organization [facility] Address [address] [place] [address]. [place] [address] Care Team Providers Care Development Professional Name Role Phone Antonio Annette Monroe APRN FINISHING POWDER PRESS OPERATOR Unavailable Goran Lloyd MD Primary Care Provider Jocelyn Davidson RD Unavailable [phone] Tamar Murphy APRN FINISHING POWDER PRESS OPERATOR Unavailable Nikita Gamble MD Primary Care Provider [phone] Naveen Casiano MD Unavailable [phone] Harlan Lin MD Unavailable Milagro vailable Mikki Blevins MD Unavailable [phone] Mikki Blevins MD Unavailable [phone] Mindi Llanes PA-C Unavailable [phone] Encounter Details Date Type Department Care Team (Late st Contact Info) Description 06/29/2018 [facility] Advice [address] [address] Mimi Cyr CMA Social History Tobacco Use Types Packs/Day Years Used Date Smoking Tobacco: Never Smokeless Tobacco: Never Alcohol Use Standard Drinks/Week Comments Yes 0 (1 standard drink = 0.6 oz pur e alcohol) rare Sex and Gender Information Value Date Recorded Sex Assigned at Female 03/04/2020 12:33 PM VENEER SAMPLE MAKER Gender Identity Female 03/04/2020 12:33 PM VENEER SAMPLE MAKER Sexual Orientation Straight 03/04/2020 12 :33 PM VENEER SAMPLE MAKER documented as of this encounter Plan of Treatment Not on file documented as of this encounter Visit Diagnoses Not on filedocumented in this encounter Additional Health Concerns Infection Onset Date Last Indicated Resolved Time Rule Out COVID-19 02/26/2020 02/26/2020 02/27/2020 4:32 PM VENEER SAMPLE MAKER documented as of this encounter Care Teams Development Professional Relationship Specialty [place] [address] [place] [address] PCP - General Family Practice 12/29/17 05/21/20 Nikita Gamble MD [address] [place] [phone] PCP - General Family Medicine 05/26/20 Annette Alvarez APRN FINISHING POWDER PRESS OPERATOR [address] [place], [place] [id number] Nurse Practitioner Clinical Nurse Specialist 03/22/17 10/21/[address] [place] [phone] Christian Counselor Dietitian, Registered 05/25/18 Tamar Murphy APRN FINISHING POWDER PRESS OPERATOR [address] [place] [phone] Assigned PCP 02/08/20 11/15/20 [place] [address] [place], [place] [address] Assigned PCP 11/16/20 12/18/23 Harlan Lin MD NO INFO AVAILABLE Assigned Endocrinology Provider 12/07/20 08/01/21 Mikki Blevins MD [address] [place] [address] Endocrinology, Diabetes, and Metabolism 05/07/21 [place] [address] Assigned Endocrinology Provider 08/02/21 01/28/23 Mindi Llanes PA-C [address] [place] [address] Assigned Surgical Provider 09/26/21 08/17/23 documented as of this encounter
--- OUTSIDE RECORDS SUMMARY | 2024-01-01 14:45 | XMS_ITS | Encounter Summary ---
Author Organization [facility] Address [address] [place] [address]. [place] [address] Care Team Providers Care Plating Engineer Name Role Phone Annette Alvarez Mabel ALVAREZ CHIROPRACTIC TEACHER Unavailable Jocelyn Davidson RD Unavailable [phone] Tamar Murphy APRN CHIROPRACTIC TEACHER Unavailable [phone] Nikita Gamble MD Primary Care Provider Naveen Casiano MD Unavailable [phone] Harlan Lin MD Unavailable Milagro vailable Mikki Blevins MD Unavailable [phone] Mikki Blevins MD Unavailable [phone] Mindi LlanesC Unavailable [phone] Encounter Details Date Type Department Care Team (Late st Contact Info) Description 09/06/2020 [facility] [place] Medical Advice [facility] [address] [facility] [address] [place] [address] Jocelyn Davidson, RENATA [facility] [place] [address] Social History Tobacco Use Types Packs/Day Years Used Date Smoking Tobacco: Never Smokeless Tobacco: Never Alcohol Use Standard Drinks/Week Comments Yes 0 (1 standard drink = 0.6 oz pur e alcohol) rare PHQ-2 Answer Date Recorded PHQ-2 Score 0 02/26/2020 Sex and Gender Information Value Date Recorded Sex Assigned at Female 03/04/2020 12:33 PM GOAT FARMER Gender Identity Female 03/04/2020 12:33 PM GOAT FARMER Sexual Orientation Straight 03/04/2020 12 :33 PM GOAT FARMER documented as of this encounter Miscellaneous Notes * Telephone Encounter - Naveen Casiano MD - 09/08/2020 12:23 PM CDT Care everywhere from [place] next visit Naveen Casiano MD * Telephone Encounter - Corina Escobar RD - 09/08/2020 11:07 AM CDT Forwarded Master Route message to Tamar Murphy, who I believe was the intended recipient. Corina Escobar RD, LD, CDE documented in this encounter Plan of Treatment Not on file documented as of this encounter Visit Diagnoses Not on filedocumented in this encounter Additional Health Concerns Assessment Noted Time PHQ-9 Depression Total Score: 0 02/26/20 20 1:30 PM GOAT FARMER documented as of this encounter Care Teams Plating Engineer Relationship Specialty Start Date End Date Nikita Gamble MD [address] [place] [address] PCP - General Family Medicine 05/26/20 Annette Alvarez APRN CHIROPRACTIC TEACHER [address] [place] [address] Nurse Practitioner Clinical Nurse Specialist 03/22/17 10/21/[address] [place] [address] Plating Engineer Dietitian, Registered 05/25/18 Tamar Murphy APRN CHIROPRACTIC TEACHER [address] [place] [phone] Assigned PCP 02/08/20 11/15/20 [place] [address] [place] [address] Assigned PCP 11/16/20 12/18/23 Harlan Lin MD NO INFO AVAILABLE Assigned Endocrinology Provider 12/07/20 08/01/21 Mikki Blevins MD [address] [place] [address] Endocrinology, Diabetes, and Metabolism 05/07/21 Mikki Blevins MD [facility] [address] Assigned Endocrinology Provider 08/02/21 01/28/23 Mindi Llanes PA-C [address] [place] [address] Assigned Surgical Provider 09/26/21 08/17/23 documented as of this encounter
--- OUTSIDE RECORDS SUMMARY | 2024-01-01 14:45 | XMS_ITS | Encounter Summary ---
Author Organization [facility] Address [address] [place] [address]. [place] [address] Care Team Providers Care Polish Maker Name Role Phone StuartJocelyn desouza Bran YANEZ Unavailable [phone] Nikita Gamble MD Primary Care Provider Naveen Casiano MD Unavailable [phone] Mikki Blevins MD Unavailable [phone] Mikki Blevins MD Unavailable [phone] Mindi Llanes PA-C Unavailable [phone] Encounter Details Date Type Department Care Team (Late st Contact Info) Description 09/16/2021 [facility] Medical Advice [facility] Specialty [address] [address] Mikki Blevins MD [place] [address] Social History Tobacco Use Types Packs/Day Years Used Date Smoking Tobacco: Never Smokeless Tobacco: Never Alcohol Use Standard Drinks/Week Comments Yes 0 (1 standard drink = 0.6 oz pur e alcohol) rare PHQ-2 Answer Date Recorded PHQ-2 Score 0 02/26/2020 Sex and Gender Information Value Date Recorded Sex Assigned at Female 03/04/2020 12:33 PM SPRAY MAKER Gender Identity Female 03/04/2020 12:33 PM SPRAY MAKER Sexual Orientation Straight 03/04/2020 12 :33 PM SPRAY MAKER documented as of this encounter Plan of Treatment Not on file documented as of this encounter Visit Diagnoses Not on filedocumented in this encounter Additional Health Concerns Assessment Noted Time PHQ-9 Depression Total Score: 0 02/26/20 20 1:30 PM SPRAY MAKER documented as of this encounter Care Teams Polish Maker Relationship Specialty Start Date End Date Nikita Gamble MD [address] [place] [address] PCP - General Family Medicine 05/26/[address] [place] [address] [place] [address] Sales Representative Livestock Dietitian, Registered 05/25/18 [place] [address] [place] [address] Assigned PCP 11/16/20 12/18/23 Mikki Blevins MD [address] [place] [address] Endocrinology, Diabetes, and Metabolism 05/07/21 [place] [address] Assigned Endocrinology Provider 08/02/21 01/28/23 Mindi Llanes PA-C [address] [facility] [address] [place] [address] Assigned Surgical Provider 09/26/21 08/17/23 documented as of this encounter
--- OUTSIDE RECORDS SUMMARY | 2024-01-01 14:45 | XMS_ITS | Encounter Summary ---
Author Organization [facility] Address [address] [place] [address]. [place] [address] Care Team Providers Care Assembly Operator Name Role Phone Joeclyn Davidson RENATA Unavailable [phone] Nikita Gamlbe MD Primary Care Provider [phone] Naveen Casiano MD Unavailable [phone] Harlan Lin MD Unavailable Milagro vailable Mikki Blevins MD Unavailable [phone] Mikki Blevins MD Unavailable [phone] Mindi Llanes PA-C Unavailable [phone] Reason for Visit * Reason Onset Date Comments Diabetes Education 12/05/2020 Encounter Details Date Type Department Care Team (Late st Contact Info) Description 12/05/2020 Telephone [facility] Endocrinology [address] [place] [phone] Harlan Lin MD NO INFO AVAILABLE Diabetes Education Social History Tobacco Use Types Packs/Day Years Used Date Smoking Tobacco: Never Smokeless Tobacco: Never Alcohol Use Standard Drinks/Week Comments Yes 0 (1 standard drink = 0.6 oz pur e alcohol) rare PHQ-2 Answer Date Recorded PHQ-2 Score 0 02/26/2020 Sex and Gender Information Value Date Recorded Sex Assigned at Female 03/04/2020 12:33 PM PASSENGER LOCOMOTIVE ENGINEER Gender Identity Female 03/04/2020 12:33 PM PASSENGER LOCOMOTIVE ENGINEER Sexual Orientation Straight 03/04/2020 12 :33 PM PASSENGER LOCOMOTIVE ENGINEER COVID-19 Exposure Response Date Recorded In [...] outreach attempt within 1 week. [facility] Scheduling documented in this encounter Plan of Treatment Not on file documented as of this encounter Visit Diagnoses Not on filedocumented in this encounter Additional Health Concerns Assessment Noted Time PHQ-9 Depression Total Score: 0 02/26/20 20 1:30 PM PASSENGER LOCOMOTIVE ENGINEER documented as of this encounter Care Teams Assembly Operator Relationship Specialty Start Date End Date Nikita Gamble MD [address] [place] [address] PCP - General Family Medicine 05/26/[address] [place] [address] Softwood Faller Dietitian, Registered 05/25/18 [place] [address] [place] [address] Assigned PCP 11/16/20 12/18/23 Harlan Lin MD NO INFO AVAILABLE Assigned Endocrinology Provider 12/07/20 08/01/21 Mikki Blevins MD [address] [place] [address] Endocrinology, Diabetes, and Metabolism 05/07/21 [place] [address] Assigned Endocrinology Provider 08/02/21 01/28/23 Mindi Llanes PA-C [address] [place] [address] Assigned Surgical Provider 09/26/21 08/17/23 documented as of this encounter
--- OUTSIDE RECORDS SUMMARY | 2024-01-01 14:45 | XMS_ITS | Encounter Summary ---
Author Organization [facility] Address [address] [place] [address]. [place] [address] Care Team Providers Care Coal Loader Name Role Phone Stuart Jocelyn Bran YANEZ Unavailable [phone] Nikita Gamble MD Primary Care Provider Naveen Casiano MD Unavailable [phone] Mikki Blevins MD Unavailable [phone] Mikki Blevins MD Unavailable [phone] Mindi Llanes PA-C Unavailable [phone] Encounter Details Date Type Department Care Team [...] Sex Assigned at Female 03/04/2020 12:33 PM APPRENTICE PATTERN MAKER Gender Identity Female 03/04/2020 12:33 PM APPRENTICE PATTERN MAKER Sexual Orientation Straight 03/04/2020 12 :33 PM APPRENTICE PATTERN MAKER documented as of this encounter Plan of Treatment Not on file documented as of this encounter Visit Diagnoses Not on filedocumented in this encounter Additional Health Concerns Assessment Noted Time PHQ-9 Depression Total Score: 0 02/26/20 20 1:30 PM APPRENTICE PATTERN MAKER documented as of this encounter Care Teams Coal Loader Relationship Specialty Start Date End Date Nikita Gamble MD [address] [place] [address] PCP - General Family Medicine 05/26/20 Jocelyn Davidson, RENATA [address] [place] [address] Motorcycle Service Technician Dietitian, Registered 05/25/18 [place] [address] [place] [address] Assigned PCP 11/16/20 12/18/23 Mikki Blevins MD [address] [place] [address] Endocrinology, Diabetes, and Metabolism 05/07/21 [place] [address] Assigned Endocrinology Provider 08/02/21 01/28/23 Mindi Llanes PA-C [address] [facility] [address] [place] [address] [place] [address] Assigned Surgical Provider 09/26/21 08/17/23 documented as of this encounter
--- OUTSIDE RECORDS SUMMARY | 2024-01-01 14:45 | XMS_ITS | Encounter Summary ---
Author Organization [place] Address [address] [place] [address]. [place] [address] Care Team Providers Care Kindergarten Tutor Name Role Phone Annette Alvarez Mabel ALVAREZ SUPERVISOR OPENING AND PICKING Unavailable Goran lLoyd MD Primary Care Provider [phone] Unavailable [phone] Tamar Murphy APRN SUPERVISOR OPENING AND PICKING Unavailable Nikita Gamble MD Primary Care Provider [phone] Naveen Casiano MD Unavailable [phone] Harlan Lin MD Unavailable Milagro vailable Mikki Blevins MD Unavailable [phone] Mikki Blevins MD Unavailable [phone] Mindi Llanes PA-C Unavailable [phone] Encounter Details Date Type Department Care Team (Late st Contact Info) Description 09/01/2018 [facility] [address] [address] Jocelyn Davidson, RENATA [address] [place] [address] Social History Tobacco Use Types Packs/Day Years Used Date Smoking Tobacco: Never Smokeless Tobacco: Never Alcohol Use Standard Drinks/Week Comments Yes 0 (1 standard drink = 0.6 oz pur e alcohol) rare Sex and Gender Information Value Date Recorded Sex Assigned at Female 03/04/2020 12:33 PM CLINICAL PROGRAM DIRECTOR Gender Identity Female 03/04/2020 12:33 PM CLINICAL PROGRAM DIRECTOR Sexual Orientation Straight 03/04/2020 12 :33 PM CLINICAL PROGRAM DIRECTOR documented as of this encounter Plan of Treatment Not on file documented as of this encounter Visit Diagnoses Not on filedocumented in this encounter Additional Health Concerns Infection Onset Date Last Indicated Resolved Time Rule Out COVID-19 02/26/2020 02/26/2020 02/27/2020 4:32 PM CLINICAL PROGRAM DIRECTOR documented as of this encounter Care Teams Kindergarten Tutor Relationship Specialty [place] [address] [place], [place] [id number] PCP - General Family Practice 12/29/17 05/21/20 Nikita Gamble MD [address] [place] [phone] PCP - General Family Medicine 05/26/20 Annette Alvarez APRN SUPERVISOR OPENING AND PICKING [address] [place], [place] [id number] Nurse Practitioner Clinical Nurse Specialist 03/22/17 10/21/[address] [place] [address] Sterile Supply Technician Dietitian, Registered 05/25/18 Tamar Murphy APRN SUPERVISOR OPENING AND PICKING [address] [place] [phone] Assigned PCP 02/08/20 11/15/20 [place] [address] [place] [address] Assigned PCP 11/16/20 12/18/23 Harlan Lin MD NO INFO AVAILABLE Assigned Endocrinology Provider 12/07/20 08/01/21 Mikki Blevins MD [address] [place] [address] Endocrinology, Diabetes, and Metabolism 05/07/21 Mikki Blevins MD [facility] [place] [address] Assigned Endocrinology Provider 08/02/21 01/28/23 Mindi Llanes PA-C [address] [place] [address] Assigned Surgical Provider 09/26/21 08/17/23 documented as of this encounter
--- OUTSIDE RECORDS SUMMARY | 2024-01-01 14:45 | XMS_ITS | Encounter Summary ---
Author Organization [place] Address [address] [place] [address]. [place] [address] Care Team Providers Care River Guide Name Role Phone StuartJocelyn Bran YANEZ Unavailable [phone] Nikita Gamble MD Primary Care Provider Naveen Casiano MD Unavailable [phone] Mikki Blevins MD Unavailable [phone] Mikki Blevins MD Unavailable [phone] Mindi Llanes PA-C Unavailable [phone] Reason for Visit * Reason Comments Medication Refill Encounter Details Date Type Department Care Team (Late st Contact Info) Description 12/20/2021 Refill [facility] [address] [place] [phone] Mindi Llanes PA-C [address] [place] [id number] Medication Refill Social History Tobacco Use Types Packs/Day Years Used Date Smoking Tobacco: Never Smokeless Tobacco: Never Alcohol Use Standard Drinks/Week Comments Yes 0 (1 standard drink = 0.6 oz pur e alcohol) rare PHQ-2 Answer Date Recorded PHQ-2 Score 0 02/26/2020 Sex and Gender Information Value Date Recorded Sex Assigned at Female 03/04/2020 12:33 PM TUNNELLER Gender Identity Female 03/04/2020 12:33 PM TUNNELLER Sexual Orientation Straight 03/04/2020 12 :33 PM TUNNELLER documented as of this encounter Miscellaneous Notes [...] Total Score: 0 02/26/20 20 1:30 PM TUNNELLER documented as of this encounter Care Teams River Guide Relationship Specialty Start Date End Date Nikita Gamble MD [facility] [address] [place] [address] [place] [address] PCP - General Family Medicine 05/26/[address] [place] [address] Engine Emission Technician Dietitian, Registered 05/25/18 [place] [address] [place] [address] Assigned PCP 11/16/20 12/18/23 Mikki Blevins MD [address] [place], [place] [address] Endocrinology, Diabetes, and Metabolism 05/07/21 [place] [address] Assigned Endocrinology Provider 08/02/21 01/28/23 Mindi Llanes PA-C [address] [place] [address] Assigned Surgical Provider 09/26/21 08/17/23 documented as of this encounter
--- OUTSIDE RECORDS SUMMARY | 2024-01-01 14:45 | XMS_ITS | Encounter Summary ---
Author Organization [place] Address [address] [place] [address]. [place] [address] Care Team Providers Care Electronics Utility Worker Name Role Phone Antonio Annette Monroe APRN MATERIAL DISPOSITION INSPECTOR Unavailable Goran Lloyd MD Primary Care Provider Joeclyn Davidson RD Unavailable [phone] Tamar Murphy APRN MATERIAL DISPOSITION INSPECTOR Unavailable Nikita Gamble MD Primary Care Provider [phone] Naveen Casiano MD Unavailable [phone] Harlan Lin MD Unavailable Milagro vailable Mikki Blevins MD Unavailable [phone] Mikki Blevins MD Unavailable [phone] Mindi Llanes PA-C Unavailable [phone] Encounter Details Date Type Department Care Team (Late st Contact Info) Description 07/05/2018 MyC Medical Advice [facility] [address] [facility] [address] [place] [address] Jocelyn Davidson, RD [address] [place] [address] Social History Tobacco Use Types Packs/Day Years Used Date Smoking Tobacco: Never Smokeless Tobacco: Never Alcohol Use Standard Drinks/Week Comments Yes 0 (1 standard drink = 0.6 oz pur e alcohol) rare Sex and Gender Information Value Date Recorded Sex Assigned at Female 03/04/2020 12:33 PM BUSINESS CONTINUITY MANAGEMENT DIRECTOR Gender Identity Female 03/04/2020 12:33 PM BUSINESS CONTINUITY MANAGEMENT DIRECTOR Sexual Orientation Straight 03/04/2020 12 :33 PM BUSINESS CONTINUITY MANAGEMENT DIRECTOR documented as of this encounter Plan of Treatment Not on file documented as of this encounter Visit Diagnoses Not on filedocumented in this encounter Additional Health Concerns Infection Onset Date Last Indicated Resolved Time Rule Out COVID-19 02/26/2020 02/26/2020 02/27/2020 4:32 PM BUSINESS CONTINUITY MANAGEMENT DIRECTOR documented as of this encounter Care Teams Electronics Utility Worker Relationship Specialty [place] [address] [place] [address] PCP - General Family Practice 12/29/17 05/21/20 Nikita Gamble MD [address] [place] [address] PCP - General Family Medicine 05/26/20 Annette Alvarez APRN MATERIAL DISPOSITION INSPECTOR [address] [place] [address] Nurse Practitioner Clinical Nurse Specialist 03/22/17 10/21/[address] [place] [address] Acute Dialysis Registered Nurse Dietitian, Registered 05/25/18 Tamar Murphy APRN MATERIAL DISPOSITION INSPECTOR [address] [place] [phone] Assigned PCP 02/08/20 11/15/20 [place] [address] [place] [address] Assigned PCP 11/16/20 12/18/23 Harlan Lin MD NO INFO AVAILABLE Assigned Endocrinology Provider 12/07/20 08/01/21 Mikki Blevins MD [address] [place] [address] Endocrinology, Diabetes, and Metabolism 05/07/21 Mikki Blevins MD [facility] [place] [address] Assigned Endocrinology Provider 08/02/21 01/28/23 Mindi Llanes PA-C [address] [place] [address] Assigned Surgical Provider 09/26/21 08/17/23 documented as of this encounter
--- OUTSIDE RECORDS SUMMARY | 2024-01-01 14:45 | XMS_ITS | Encounter Summary ---
Author Organization [place] Address [address] [place] [address]. [place] [address] Care Team Providers Care Carnallite Plant Operator Name Role Phone Stuart Jocelyn Bran YANEZ Unavailable [phone] Nikita Gamble MD Primary Care Provider [phone] Naveen Casiano MD Unavailable [phone] Mikki Blevins MD Unavailable [phone] Mikki Blevins MD Unavailable [phone] Mindi Llanes PA-C Unavailable [phone] Encounter Details Date Type Department Care Team [...] Sex Assigned at Female 03/04/2020 12:33 PM DIAGNOSTIC TECHNICIAN Gender Identity Female 03/04/2020 12:33 PM DIAGNOSTIC TECHNICIAN Sexual Orientation Straight 03/04/2020 12 :33 PM DIAGNOSTIC TECHNICIAN documented as of this encounter Plan of Treatment Not on file documented as of this encounter Visit Diagnoses Not on filedocumented in this encounter Additional Health Concerns Assessment Noted Time PHQ-9 Depression Total Score: 0 02/26/20 20 1:30 PM DIAGNOSTIC TECHNICIAN documented as of this encounter Care Teams Carnallite Plant Operator Relationship Specialty Start Date End Date Nikita Gamble MD [address] [place] [address] PCP - General Family Medicine 05/26/20 Jocelyn Davidson, RENATA [address] [place] [address] Obstetrics Specialist Dietitian, Registered 05/25/18 [place] [address] [place] [address] Assigned PCP 11/16/20 12/18/23 Mikki Blevins MD [address] [place] [address] Endocrinology, Diabetes, and Metabolism 05/07/21 [place] [address] Assigned Endocrinology Provider 08/02/21 01/28/23 Mindi Llanes PA-C [address] [facility] [address] [place] [address] [place] [address] Assigned Surgical Provider 09/26/21 08/17/23 documented as of this encounter
--- OUTSIDE RECORDS SUMMARY | 2024-01-01 14:45 | XMS_ITS | Encounter Summary ---
Author Organization [place] Address [address] [place] [address]. [place] [address] Care Team Providers Care Bander And Cellophaner Machine Name Role Phone Jocelyn Davidson RD Unavailable [phone] Nikita Gamble MD Primary Care Provider Naveen Casiano MD Unavailable [phone] Mikki Blevins MD Unavailable [phone] Mikki Blevins MD Unavailable [phone] Mindi Llanes PA-C Unavailable [phone] Encounter Details Date Type Department Care Team (Late st Contact Info) Description 09/18/2021 MyC Medical Advice [facility] [address] [place] [address] Liberty Gilliam MA Social History Tobacco Use Types Packs/Day Years Used Date Smoking Tobacco: Never Smokeless Tobacco: Never Alcohol Use Standard Drinks/Week Comments Yes 0 (1 standard drink = 0.6 oz pur e alcohol) rare PHQ-2 Answer Date Recorded PHQ-2 Score 0 02/26/2020 Sex and Gender Information Value Date Recorded Sex Assigned at Female 03/04/2020 12:33 PM CRAPS MANAGER Gender Identity Female 03/04/2020 12:33 PM CRAPS MANAGER Sexual Orientation Straight 03/04/2020 12 :33 PM CRAPS MANAGER documented as of this encounter Plan of Treatment Not on file documented as of this encounter Visit Diagnoses Not on filedocumented in this encounter Additional Health Concerns Assessment Noted Time PHQ-9 Depression Total Score: 0 02/26/20 20 1:30 PM CRAPS MANAGER documented as of this encounter Care Teams Bander And Cellophaner Machine Relationship Specialty Start Date End Date Nikita Gamble MD [place] [address] [place] [address] PCP - General Family Medicine 05/26/20 Jocelyn Davidson, RENATA [place] [address] [place] [address] Bluing Oven Tender Dietitian, Registered 05/25/18 [place] [address] [place] [address] Assigned PCP 11/16/20 12/18/23 Mikki Blevins MD [address] [place] [address] Endocrinology, Diabetes, and Metabolism 05/07/21 [place] [address] Assigned Endocrinology Provider 08/02/21 01/28/23 Mindi Llanes PA-C [address] [facility] [address] [place] [address] Assigned Surgical Provider 09/26/21 08/17/23 documented as of this encounter
--- OUTSIDE RECORDS SUMMARY | 2024-01-01 14:45 | XMS_ITS | Encounter Summary ---
Author Organization [place] Address [address] [place] [address]. [place] [address] Care Team Providers Care Breeding Technician Name Role Phone Annette Alvarez APRN DAY GUARD Unavailable Jocelyn Davidson RD Unavailable [phone] Tamar Murphy APRN DAY GUARD Unavailable Nikita Gamble MD Primary Care Provider Naveen Casiano MD Unavailable [phone] Harlan Lin MD Unavailable Milagro vailable Mikki Blevins MD Unavailable [phone] Mikki Blevins MD Unavailable [phone] Mindi Llanes PA-C Unavailable [phone] Reason for Visit * Reason Comments Medication Refill Encounter Details Date Type Department Care Team (Late st Contact Info) Description 06/05/2020 Refill [facility] [address] [place] [address] Annette Alvarez APRN DAY GUARD [address] [place], [place] [phone] Medication Refill Social History Tobacco Use Types Packs/Day Years Used Date Smoking Tobacco: Never Smokeless Tobacco: Never Alcohol Use Standard Drinks/Week Comments Yes 0 (1 standard drink = 0.6 oz pur e alcohol) rare PHQ-2 Answer Date Recorded PHQ-2 Score 0 02/26/2020 Sex and Gender Information Value Date Recorded Sex Assigned at Female 03/04/2020 12:33 PM LARD TUB WASHER Gender Identity Female 03/04/2020 12:33 PM LARD TUB WASHER Sexual Orientation Straight 03/04/2020 12 :33 PM LARD TUB WASHER documented as of this encounter Miscellaneous Notes * Telephone Encounter - Jasmyn Lee RN - 06/05/2020 11:52 AM LARD TUB WASHER Prescription approved per [facility] Refill Protocol. Jasmyn Lee RN [facility] -- Triage Nurse TUB WASHER documented in this encounter Plan of Treatment Not on file documented as of this encounter Visit Diagnoses Diagnosis Hypothyroidism due to acquired atrophy of thyroid documented in this encounter Additional Health Concerns Assessment Noted Time PHQ-9 Depression Total Score: 0 02/26/20 20 1:30 PM LARD TUB WASHER documented as of this encounter Care Teams Breeding Technician Relationship Specialty Start Date End Date Nikita Gamble MD [address] [place] [phone] PCP - General Family Medicine 05/26/20 Annette Alvarez APRN DAY GUARD [address] [place] [address] Nurse Practitioner Clinical Nurse Specialist 03/22/17 10/21/[address] [facility] [address] [place] [address] Keyboard Instrument Tuner Dietitian, Registered 05/25/18 Tamar Murphy APRN DAY GUARD [address] [place] [phone] Assigned PCP 02/08/20 11/15/20 [place] [address] [place] [address] Assigned PCP 11/16/20 12/18/23 Harlan Lin MD NO INFO AVAILABLE Assigned Endocrinology Provider 12/07/20 08/01/21 Mikki Blevins MD [address] [place] [address] Endocrinology, Diabetes, and Metabolism 05/07/21 [place] [address] Assigned Endocrinology Provider 08/02/21 01/28/23 Mindi Llanes PA-C [address] [place] [address] Assigned Surgical Provider 09/26/21 08/17/23 documented as of this encounter
--- OUTSIDE RECORDS SUMMARY | 2024-01-01 14:45 | XMS_ITS | Encounter Summary ---
Author Organization [place] Address [address] [place] [address]. [place] [address] Care Team Providers Care Ditcher Name Role Phone StuartJocelyn desouza Bran YANEZ Unavailable [phone] Nikita Gamble MD Primary Care Provider Naveen Casiano MD Unavailable [phone] Mikki Blevins MD Unavailable [phone] Mikki Blevins MD Unavailable [phone] Mindi Llanes PA-C Unavailable [phone] Encounter Details Date Type Department Care Team (Late st Contact Info) Description 08/05/2021 MyC Medical Advice [facility] Specialty [address] [address] Mikki Blevins MD [place] [address] Social History Tobacco Use Types Packs/Day Years Used Date Smoking Tobacco: Never Smokeless Tobacco: Never Alcohol Use Standard Drinks/Week Comments Yes 0 (1 standard drink = 0.6 oz pur e alcohol) rare PHQ-2 Answer Date Recorded PHQ-2 Score 0 02/26/2020 Sex and Gender Information Value Date Recorded Sex Assigned at Female 03/04/2020 12:33 PM MANAGER PEDIATRIC Gender Identity Female 03/04/2020 12:33 PM MANAGER PEDIATRIC Sexual Orientation Straight 03/04/2020 12 :33 PM MANAGER PEDIATRIC documented as of this encounter Miscellaneous Notes * Telephone Encounter - Radha Fernandez RN - 08/06/2021 8:40 AM CDT documented in this encounter Plan of Treatment Not on file documented as of this encounter Visit Diagnoses Not on filedocumented in this encounter Additional Health Concerns Assessment Noted Time PHQ-9 Depression Total Score: 0 02/26/20 20 1:30 PM MANAGER PEDIATRIC documented as of this encounter Care Teams Ditcher Relationship Specialty Start Date End Date Nikita Gamble MD [address] [place] [address] PCP - General Family Medicine 05/26/[address] [place] [address] Assault Amphibious Vehicle Officer Dietitian, Registered 05/25/18 [place] [address] [place] [address] Assigned PCP 11/16/20 12/18/23 Mikki Blevins MD [address] [place] [address] Endocrinology, Diabetes, and Metabolism 05/07/21 [place] [address] Assigned Endocrinology Provider 08/02/21 01/28/23 Mindi Llanes PA-C [address] [address] Assigned Surgical Provider 09/26/21 08/17/23 documented as of this encounter
--- OUTSIDE RECORDS SUMMARY | 2024-01-01 14:45 | XMS_ITS | Encounter Summary ---
Author Organization [place] Address [address] [place] [address]. [place] [address] Care Team Providers Care Shipyard Painting Supervisor Name Role Phone Antonio Annette Monroe APRN HYDROGEN BRAZE FURNACE OPERATOR Unavailable Goran Lloyd MD Primary Care Provider Jocelyn Davidson RD Unavailable [phone] Tamar Murphy APRN HYDROGEN BRAZE FURNACE OPERATOR Unavailable [phone] Nikita Gamble MD Primary Care Provider [phone] Naveen Casiano MD Unavailable [phone] Harlan Lin MD Unavailable Milagro vailable Mikki Blevins MD Unavailable [phone] Mikki Blevins MD Unavailable [phone] Mindi Llanes PA-C Unavailable [phone] Encounter Details Date Type Department Care Team (Late st Contact Info) Description 05/26/2018 [facility] [address] [address] [place] [address] Social History Tobacco Use Types Packs/Day Years Used Date Smoking Tobacco: Never Smokeless Tobacco: Never Alcohol Use Standard Drinks/Week Comments Yes 0 (1 standard drink = 0.6 oz pur e alcohol) rare Sex and Gender Information Value Date Recorded Sex Assigned at Female 03/04/2020 12:33 PM CASH RECONCILIATION SPECIALIST Gender Identity Female 03/04/2020 12:33 PM CASH RECONCILIATION SPECIALIST Sexual Orientation Straight 03/04/2020 12 :33 PM CASH RECONCILIATION SPECIALIST documented as of this encounter Plan of Treatment Not on file documented as of this encounter Visit Diagnoses Not on filedocumented in this encounter Additional Health Concerns Infection Onset Date Last Indicated Resolved Time Rule Out COVID-19 02/26/2020 02/26/2020 02/27/2020 4:32 PM CASH RECONCILIATION SPECIALIST documented as of this encounter Care Teams Shipyard Painting Supervisor Relationship Specialty [place] [address] [place] [address] PCP - General Family Practice 12/29/17 05/21/20 Nikita Gamble MD [address] [place] [phone] PCP - General Family Medicine 05/26/20 Annette Alvarez APRN HYDROGEN BRAZE FURNACE OPERATOR [address] [place], [place] [phone] Nurse Practitioner Clinical Nurse Specialist 03/22/17 10/21/[address] [place] [address] Him Director Dietitian, Registered 05/25/18 Tamar Murphy APRN HYDROGEN BRAZE FURNACE OPERATOR [address] [place] [phone] Assigned PCP 02/08/20 11/15/20 [place] [address] [place] [address] Assigned PCP 11/16/20 12/18/23 Harlan Lin MD NO INFO AVAILABLE Assigned Endocrinology Provider 12/07/20 08/01/21 Mikki Blevins MD [address] [place] [address] Endocrinology, Diabetes, and Metabolism 05/07/21 Mikki Blevins MD [facility] [place] [address] Assigned Endocrinology Provider 08/02/21 01/28/23 Mindi Llanes PA-C [address] [place] [address] Assigned Surgical Provider 09/26/21 08/17/23 documented as of this encounter
--- OUTSIDE RECORDS SUMMARY | 2024-01-01 14:45 | XMS_ITS | Encounter Summary ---
Author Organization [place] Address [address] [place] [address]. [place] [address] Care Team Providers Care Branch Director Name Role Phone StuartJocelyn desouza Bran YANEZ Unavailable [phone] Nikita Gamble MD Primary Care Provider Naveen Casiano MD Unavailable [phone] Mikki Blevins MD Unavailable [phone] Mikki Blevins MD Unavailable [phone] Mindi Llanes PA-C Unavailable [phone] Reason for Visit * Reason Onset Date Comments Medication Question 09/14/2021 OZEMPIC Encounter Details Date Type Department Care Team (Late st Contact Info) Description 09/14/2021 Telephone [facility] Specialty [address] [place] [address] Mikki Blevins MD [facility] [address] Medication Question (OZEMPIC) Social History Tobacco Use Types Packs/Day Years Used Date Smoking Tobacco: Never Smokeless Tobacco: Never Alcohol Use Standard Drinks/Week Comments Yes 0 (1 standard drink = 0.6 oz pur e alcohol) rare PHQ-2 Answer Date Recorded PHQ-2 Score 0 02/26/2020 Sex and Gender Information Value Date Recorded Sex Assigned at Female 03/04/2020 12:33 PM DRY BOX OPERATOR Gender Identity Female 03/04/2020 12:33 PM DRY BOX OPERATOR Sexual Orientation Straight 03/04/2020 12 :33 PM DRY BOX OPERATOR documented as of this encounter Miscellaneous Notes * Telephone Encounter - Liberty Rader - 09/14/2021 4:43 PM CDT [facility] Phone Message May a detailed message be left on voicemail: yes Reason for Call: Medication Question or concern regarding medication Prescription Clarification Name of Medication: OZEMPIC Prescribing Provider: [id number] [place] [address] What on the order needs clarification? Pt [...] Depression Total Score: 0 02/26/20 1:30 PM DRY BOX OPERATOR documented as of this encounter Care Teams Branch Director Relationship Specialty Start Date End Date Nikita Gamble MD [place] [address] [place] [address] PCP - General Family Medicine 05/26/[address] [facility] [place] [address] Senior Outside Sales Representative Dietitian, Registered 05/25/18 [place] [address] [place] [address] Assigned PCP 11/16/20 12/18/23 Mikki Blevins MD [address] [place] [address] Endocrinology, Diabetes, and Metabolism 05/07/21 [place] [address] Assigned Endocrinology Provider 08/02/21 01/28/23 Mindi Llanes PA-C [address] [place] [address] Assigned Surgical Provider 09/26/21 08/17/23 documented as of this encounter
--- OUTSIDE RECORDS SUMMARY | 2024-01-01 14:45 | XMS_ITS | Encounter Summary ---
Author Organization [facility] Address [address] [place] [address]. [place] [address] Care Team Providers Care Apartment Maintenance Worker Name Role Phone Jocelyn Davidson RENATA Unavailable [phone] Nikita Gamble MD Primary Care Provider Naveen Casiano MD Unavailable [phone] Harlan Lin MD Unavailable Milagro vailable Mikki Blevins MD Unavailable [phone] Mikki Blevins MD Unavailable [phone] Mindi Llanes PA-C Unavailable [phone] Reason for Visit * Reason Onset Date Comments Diabetes Education 12/05/2020 Encounter Details Date Type Department Care Team (Late st Contact Info) Description 12/05/2020 [facility] Medical Advice [facility] Nurse Advisors [facility] [place] [address] Hernando Gray Diabetes Education Social History Tobacco Use Types Packs/Day Years Used Date Smoking Tobacco: Never Smokeless Tobacco: Never Alcohol Use Standard Drinks/Week Comments Yes 0 (1 standard drink = 0.6 oz pur e alcohol) rare PHQ-2 Answer Date Recorded PHQ-2 Score 0 02/26/2020 Sex and Gender Information Value Date Recorded Sex Assigned at Female 03/04/2020 12:33 PM BRANCH CHIEF Gender Identity Female 03/04/2020 12:33 PM BRANCH CHIEF Sexual Orientation Straight 03/04/2020 12 :33 PM BRANCH CHIEF COVID-19 Exposure Response Date Recorded In the [...] back at a better time. Hernando Gray [facility] Scheduling documented in this encounter Plan of Treatment Not on file documented as of this encounter Visit Diagnoses Not on filedocumented in this encounter Additional Health Concerns Assessment Noted Time PHQ-9 Depression Total Score: 0 02/26/20 20 1:30 PM BRANCH CHIEF documented as of this encounter Care Teams Apartment Maintenance Worker Relationship Specialty Start Date End Date Nikita Gamble MD [address] [place] [address] PCP - General Family Medicine 05/26/[address] [place] [id number] Button Machine Operator Dietitian, Registered 05/25/18 [place] [address] [place] [address] Assigned PCP 11/16/20 12/18/23 Harlan Lin MD NO INFO AVAILABLE Assigned Endocrinology Provider 12/07/20 08/01/21 Mikki Blevins MD [address] [place] [address] Endocrinology, Diabetes, and Metabolism 05/07/21 Mikki Blevins MD [facility] [id number] Assigned Endocrinology Provider 08/02/21 01/28/23 Mindi Llanes PA-C [address] [place] [address] Assigned Surgical Provider 09/26/21 08/17/23 documented as of this encounter
--- OUTSIDE RECORDS SUMMARY | 2024-01-01 14:45 | XMS_ITS | Encounter Summary ---
Author Organization [place] Address [address] [place] [address]. [place] [address] Care Team Providers Care Public Improvement Inspector Name Role Phone Stuart Jocelyn Bran YANEZ Unavailable [phone] Nikita Gamble MD Primary Care Provider Naveen Casiano MD Unavailable [phone] Mikki Blevins MD Unavailable [phone] Mikki Blevins MD Unavailable [phone] Mindi Llanes PA-C Unavailable [phone] Encounter Details Date Type Department Care Team (Late st Contact Info) Description 10/20/2021 [facility] Medical Advice [facility] [address] [address] Diandra Giordano, MAURICE Social History Tobacco Use Types Packs/Day Years Used Date Smoking Tobacco: Never Smokeless Tobacco: Never Alcohol Use Standard Drinks/Week Comments Yes 0 (1 standard drink = 0.6 oz pur e alcohol) rare PHQ-2 Answer Date Recorded PHQ-2 Score 0 02/26/2020 Sex and Gender Information Value Date Recorded Sex Assigned at Female 03/04/2020 12:33 PM SHORE WORKING SUPERVISOR Gender Identity Female 03/04/2020 12:33 PM SHORE WORKING SUPERVISOR Sexual Orientation Straight 03/04/2020 12 :33 PM SHORE WORKING SUPERVISOR documented as of this encounter Plan of Treatment Not on file documented as of this encounter Visit Diagnoses Not on filedocumented in this encounter Additional Health Concerns Assessment Noted Time PHQ-9 Depression Total Score: 0 02/26/20 20 1:30 PM SHORE WORKING SUPERVISOR documented as of this encounter Care Teams Public Improvement Inspector Relationship Specialty Start Date End Date Nikita Gamble MD [place] [address] [place] [address] PCP - General Family Medicine 05/26/20 Jocelyn Davidson, RENATA [place] [address] [place] [address] Clinical Quality Rn Dietitian, Registered 05/25/18 [place] [address] [place] [address] Assigned PCP 11/16/20 12/18/23 Mikki Blevins MD [address] [place] [address] Endocrinology, Diabetes, and Metabolism 05/07/21 [place] [address] Assigned Endocrinology Provider 08/02/21 01/28/23 Mindi Llanes PA-C [address] [facility] [place] [address] [place] [address] Assigned Surgical Provider 09/26/21 08/17/23 documented as of this encounter
--- OUTSIDE RECORDS SUMMARY | 2024-01-01 14:45 | XMS_ITS | Encounter Summary ---
Author Organization [facility] Address [address] [place] [address]. [place] [address] Care Team Providers Care Medieval English Literature Professor Name Role Phone StuartJocelyn desouza Bran YANEZ Unavailable [phone] Nikita Gamble MD Primary Care Provider Naveen Casiano MD Unavailable [phone] Mikki Blevins MD Unavailable [phone] Mikki Blevins MD Unavailable [phone] Mindi Llanes PA-C Unavailable [phone] Encounter Details Date Type Department Care Team (Late st Contact Info) Description 12/21/2021 [facility] Medical Advice [facility] [place] [address] [facility] [address] [place] [address] Mindi Llanes PA-C [address] [facility] [address] [place] [id number] Social History Tobacco Use Types Packs/Day Years Used Date Smoking Tobacco: Never Smokeless Tobacco: Never Alcohol Use Standard Drinks/Week Comments Yes 0 (1 standard drink = 0.6 oz pur e alcohol) rare PHQ-2 Answer Date Recorded PHQ-2 Score 0 02/26/2020 Sex and Gender Information Value Date Recorded Sex Assigned at Female 03/04/2020 12:33 PM HOPPER FILLER Gender Identity Female 03/04/2020 12:33 PM HOPPER FILLER Sexual Orientation Straight 03/04/2020 12 :33 PM HOPPER FILLER documented as of this encounter Plan of Treatment Not on file documented as of this encounter Visit Diagnoses Not on filedocumented in this encounter Additional Health Concerns Assessment Noted Time PHQ-9 Depression Total Score: 0 02/26/20 20 1:30 PM HOPPER FILLER documented as of this encounter Care Teams Medieval English Literature Professor Relationship Specialty Start Date End Date Nikita Gamble MD [address] [place] [address] PCP - General Family Medicine 05/26/[address] [place] [address] [place] [address] Criminal Investigator Customs Dietitian, Registered 05/25/18 [place] [address] [place] [address] Assigned PCP 11/16/20 12/18/23 Mikki Blevins MD [address] [place] [address] Endocrinology, Diabetes, and Metabolism 05/07/21 [place] [address] Assigned Endocrinology Provider 08/02/21 01/28/23 Midni Llanes PA-C [address] [facility] [address] [place] [address] Assigned Surgical Provider 09/26/21 08/17/23 documented as of this encounter
== END 2023-12-29 01:31 | disposition home or self-care (01) ==
LOC: AMB 01-01 14:40
PROVIDERS: PCP Family Medicine; Visit Provider Family Medicine
DX: R53.1 Weakness (principal); A41.9 Sepsis, unspecified organism; I95.9 Hypotension, unspecified
CPT/HCPCS: A0425; A0434

== ENCOUNTER 2024-01-17 13:10 | Outpatient (CLI) | payer OTHER, SELFPAY ==
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
--- OUTSIDE RECORDS SUMMARY | 2024-01-17 13:13 | XMS_ITS | Continuity of Care Document ---
Author Organization [facility] enter Address [address] [place] [address] Phone Care Team Providers Care Laborer Operator Name Role Phone [facility] Unavailable Unava ilable Procedures Procedure Date Destruction [...] Diagnoses Date Provider Providers Copied on Encounter [facility], [address] [place] [address], [id number], [place] tel:[phone] [facility] No Information [facility]. [address] [place] [address], [id number], . tel:[phone] Referring Provider: Woody Michelle, [address] [place], [address] . tel:[phone] [facility], [address] [place] [address], [id number], tel:[phone] [facility] No Information 4 [facility]. [address] [place] [address], [id number], . tel:[phone] Referring Provider: Woody Michelle, [address] [place], [address] . tel:[phone] [facility], [address] [place] [address], [id number], tel:[phone] [place] [address] No Information 3 [facility]. [address] [place] [address], [id number], . tel:[phone] Referring Provider: Jammie Cruz, [address] [place], [address] . tel:[phone] Family History Family Member Type Diagnosis Age At Onset No Information Payers Payer name Insurance type Covered democrat ID Gabriele tyson(s) [facility] [id number] Social History Type Description Quantity Date Captured [...]
--- OUTSIDE RECORDS SUMMARY | 2024-01-17 13:13 | XMS_ITS | Continuity of Care Document ---
Author Organization [facility] Address [address] [place] [address] Care Team Providers Care Cook Fish And Chips Name Role Phone Bacilio Henderson CRNA Unavailable [...] Diagnoses Date Provider Providers Copied on Encounter [facility], [address] [place], [place], [id number], [facility] No Information 4 Santiago Ribera. [address] [place] [address], [id number] , . tel: [phone] Referring Provider: Woody Michelle, [address] [place], [address] . tel:[phone] [facility], [address] [place] [address], [id number], [facility] No Information 4 Maurice Crow. [address] [facility], [place], [place], [id number] , . tel:[phone] Referring Provider: Woody Michelle, [address] [place], [address] . tel:[phone] [facility], [address] [facility] [place], [id number], [facility] [place] No Information 3 Santiago Ribera. [address], [facility] [place], [place], [place], [id number] , . tel: [phone] Referring Provider: Woody Ahn, [address] [place] [address] [place], [address] . tel:[phone] [facility], [address] [place] [address] [place], [id number], [facility] [place] No Information 3 Marshajhon Atiya. [address] [place], [place] [address], [place], [address], . tel: [phone] Referring Provider: Woody Michelle, [address] [place] [address], [address] . tel:[phone] [facility], [address] [place] [address] [place], [id number], [facility] No Information 3 Santiago Ribera. [address], [facility], [place], [place], [id number] , . tel: [phone] Referring Provider: Woody Michelle, [address] [place] [address], [address] . tel:[phone] Family History Family Member Type Diagnosis Age At Onset No Information Payers Payer name Insurance type Covered democrat ID Gabriele tyson(s) [facility] [id number] Social History Type Description Quantity Date Captured [...]
--- OUTSIDE RECORDS SUMMARY | 2024-01-17 13:13 | XMS_ITS | Continuity of Care Document ---
Author Organization [facility] Address [address] [facility] [place] [address] Care Team Providers Care Tooth Cutter Name Role Phone [facility] Unavailable Unav ailable Procedures Procedure Date Facet [...] Diagnoses Date Provider Providers Copied on Encounter [facility], [address] [place], [place], [id number], [facility] No Information [facility]. [address] [facility] [place], [id number], [place]. tel:[phone] Referring Provider: Woody Michelle, [address] [place], [address]. tel:[phone] [facility], [address] [place], [place], [id number], [facility] No Information [facility]. [address] [facility] [place], [id number], [place]. tel:[phone] Referring Provider: Woody Ahn, [address] [place], [address]. tel:[phone] Family History Family Member Type Diagnosis Age At Onset No Information Payers Payer name Insurance type Covered republican ID Gabriele tyson(s) [employer] [id number] Social History Type Description Quantity Date Captured [...]
[2024-01-17 22:52] LABS: PCR FLU A Negative PCR FLU A (Negative); PCR FLU B Negative PCR FLU B (Negative); SARS PCR* Negative SARS-CoV-2 (Negative)
== END 2024-01-17 13:11 | disposition home or self-care (01) ==
PROVIDERS: PCP Family Medicine; Visit Provider Family Medicine
DX: R05.9 Cough, unspecified (principal); I10 Essential (primary) hypertension; E66.9 Obesity, unspecified; E03.9 Hypothyroidism, unspecified; E10.9 Type 1 diabetes mellitus without complications; M54.12 Radiculopathy, cervical region; R53.83 Other fatigue; R06.2 Wheezing
CPT/HCPCS: 80048; 83735; 85025; 87631; 87635

== ENCOUNTER 2024-01-25 12:29 | Outpatient (CLI) | payer OTHER, SELFPAY ==
--- OUTSIDE RECORDS SUMMARY | 2024-01-25 12:33 | XMS_ITS | Encounter Summary ---
Author Organization [facility] Address [address] [place] [address] Care Team Providers Care Senior Mechanical Estimator Name Role Phone Nikita Gamble MD Primary Care Provider [phone] Reason for Visit * Reason Comments LAB RESULTS Encounter Details Date Type Department Care Team ([facility] st Contact Info) Description 01/03/2024 [facility] Obstetrics and Gynecology [address] [facility] [place] [address] Carol Phillips MD [address] [place] [address] [id number] LAB RESULTS Social History Tobacco Use Types Packs/Day Years [...] as of this encounter Nursing Notes * Constance Acevedo RN - 01/10/2024 8:38 AM CDT OPS. Constance Acevedo RN 01/10/2024, 8:38 AM [place] ACCOUNTS OFFICER * Carol Phillips MD - 01/09/2024 5:21 PM CDT I saw Marnie had a visit with Dr. Coates today with plans for interstim for incontinence. That will hopefully remove/reduce need for pads and improve vulvar cares. I would try pads that have no scent orperfumes and in general recommend to avoid Always brand as anecdotally I have more patients with irritation from this brand. Continue vaginal estrogen and return for vulvar checks minimum yearly, but she may benefit from a closer follow up in 3-6 months pending symptoms. Should return for skin check with any abnormal lesions or vulvar itching that is chronic. Carol Phillips MD * Constance Acevedo RN - 01/04/2024 4:12 PM CDT Patient calling back. Patient asking about pathology results, apologized for calling and stated that she has issues logging into [employer] with having to reset passwords. RN relayed that she can call anytime! FINAL DIAGNOSIS A. Skin, Labia, left superior, [...] not be excluded. Clinical correlation is recommended. Biopsies from endometrium were negative for abnormality. Skin biopsies with inflammation but no clear dermatitis. May have secondary inflammation from chronic urinary incontinence / use of pads. Following with urogyn at this time regarding incontinence. Can follow up in clinic as needed for any vulvar concerns or PMB. Carol Phillips MD RN relayed pathology results and message from Dr. Phillips above. Patient asks if there is a specific brand of pads that we recommend. RN relayed that there isn't one RN has heard of and offered to ask Dr. Phillips. Patient would appreciate this, Patient aware Dr. Phillips is out the rest of the week. Patient states no need for callback if no recommendations. Dr. Phillips: any recommendations on specific brand of pads? Constance Acevedo RN 01/04/2024, 4:22 PM [place] ACCOUNTS OFFICER * Constance Acevedo RN - 01/04/2024 8:44 AM CDT Left message to call back. Constance Acevedo RN 01/04/2024, 8:44 AM [place] ACCOUNTS OFFICER * Lyla Thomas - 01/03/2024 4:56 PM CDT Test Results: Patient is calling for results of a: Lab What is a good number to reach you at? mobile Preferred communication method: Phone Call. Is it okay to leave a detailed message on your voicemail? Yes If a prescription is needed, patient would like it filled at the pharmacy listed in Meds & Orders. Is there anything else I can help you with today? No documented in this encounter Plan of Treatment Upcoming Encounters Date Type Department Care Team (Late st Contact Info) Description 02/20/2024 2:00 PM ASSEMBLY TECHNICIAN Appointment [facility] UroGynecology [address] [place] [address] Candice Coates MD [address] [place] [address] 02/24/2024 8:45 AM ASSEMBLY TECHNICIAN Appointment [facility] UroGynecology [address] [place] [address] Candice Coates MD [address] [place] [address] 05/02/2024 10:40 AM ASSEMBLY TECHNICIAN Hospital Encounter [facility] Day Surgery [address] [address] Candice Coates MD [address] [place] [address] 05/02/2024 10:40 AM ASSEMBLY TECHNICIAN - 05/02/2024 12:15 PM ASSEMBLY TECHNICIAN Surgery [facility] Surgery [address] [address] Candice Coates MD [address] [place] [address] Insertion of sacral neuromodulation lead 05/17/2024 10:45 AM ASSEMBLY TECHNICIAN Appointment [facility] UroGynecology [address] [place] [address] Candice Coates MD [address] [place] [address] Scheduled Procedures Name Priority Associated Diagnoses Date/Ti me INSERTION SACRAL NEUROSTIMULATOR STAGE ONE OAB (overactive bladder) Urge incontinence 05/02/2024 10:40 AM ASSEMBLY TECHNICIAN INSERTION SACRAL NEUROSTIMULATOR STAGE TWO OAB (overactive bladder) Urge incontinence 05/02/2024 10:40 AM ASSEMBLY TECHNICIAN documented as of this encounter Visit Diagnoses Not on filedocumented in this encounter Additional Health Concerns Infection Onset Date Last Indicated Resolved Time MRSA Comment:Beronica 10-4-15, 01/06/16 12/30/2014 12/30/2014 documented as of this encounter Care Teams Senior Mechanical Estimator Relationship Specialty Start Date End Date Nikita Gamble MD [address] [place] [address] PCP - General Family Practice 06/23/23 documented as of this encounter
--- OUTSIDE RECORDS SUMMARY | 2024-01-25 12:33 | XMS_ITS | Encounter Summary ---
Author Organization [facility] Address [address] [place] [address] Care Team Providers Care Piano Regulator Inspector Name Role Phone Nikita Gamble MD Primary Care Provider Reason for Referral * Procedure/Equipment (Routine) - Incomplete Specialty Diagnoses / Procedures Referred By Contac t Referred To Contact Diagnoses Postmenopausal bleeding Procedures OBGYN Pelvic/Beauty School Instructor Ultrasound Candice Coates MD [address] [place] [address] Referral ID Status Reason Start Date Expiration Date V isits Requested Visits Authorized [id number] Incomplete 10/17/2023 01/15/2025 1 1 Reason for Visit * Reason Comments CONSULT UUI, several years, worsening. Hx observed rectocele, poss cystocele. Endorses GAURAV, nocturia, incomplete bladder emptying, BM concerns. Denies baseline urgency/frequency, UI w/o sensation, vaginal bulging. Encounter Details Date Type Department Care Team (Late st Contact Info) Description 10/17/2023 10:00 AM CDT Office Visit [facility] UroGynecology [address] [place] [address] Candice Coates MD [address] [place] [address] Postmenopausal bleeding (Primary Dx); OAB (overactive [...] Patient Instructions * Patient Instructions* Niurka Cook, EXHAUST AND MUFFLER FITTER - 10/17/2023 10:00 AM CDT URODYNAMIC TESTING INFORMATION AND PREPARATION Your physician has ordered Urodynamic testing in order to evaluate your urinary function. This testing is performed at the Urology clinic at [address] [place] [address]. During this test we will try to [...] Wednesdays. Please contact the Urology department at [phone] to schedule your Urodynamics appointment and a [...] testing (also called cystometry) please go to [email or web address] and type in the search box ???urodynamics?? . If there are special needs that you have or questions you need answered, please contact [phone]. INSTRUCTIONS ON HOW TO COMPLETE YOUR BLADDER [...] available to your physician and the urodynamics sprinkler repair technician performing theevaluation. Thank you for your cooperation Bladder Diary Date: Time Drinks Urine Accidental Leaks Did you feel an urge to go? What were you doing at the time of leaking? What kind? (water, pop, milk, etc) How Much? How many times? How much (oz, cc, or ml)? How much? Eunice one Eunice one (sneezing, exercising, having sex, lifting, etc.) [...] How many times? How much? How much? Eunice one Eunice one (sneezing, exercising, having sex, lifting, etc.) [...] Sm med lg Yes No Please call [phone] for follow up and new patient scheduling for [facility] Urogynecology. Instructions Your follow up appointment will be scheduled with one of the Urogynecology care team members. This may be one of our physician assistants. They are always in direct communication with your physician who remains responsible for your Urogynecology care at [facility]. Lab or Imaging Results If labs were ordered, you will receive the results via your [email or web address]) account if you have one. Results are automatically released to your [employer]ee[employer]) account once available. This means that you may see your results before we have had a chance to review them. After the results become available, comments from our team are typically posted to your [employer]) account within 2-5 business days. We usually wait until all or nearly all of the lab results have returned and make a onetime comment rather than comment on each lab result individually. Please donot send a [employer] message requesting follow up/advice on labs or [...] you. If you do not have a [employer] account, results typically arrive by mail within [...] you! Get Cost of Care Estimates - [phone] The health insurance marketplace has changed dramatically in the last few years. Our cost of care service will provide estimates over the phone for treatments or procedures billed through [facility]. To receive a cost estimate, simply call [phone] during regular business hours. If you have insurance coverage, you will need to verify your policy of coverage with your health plan by calling the number located on the back of your insurance card and talking to member services. documented in this encounter Progress Notes * Candice Coates MD - 10/17/2023 10:00 AM CDT [facility] Urogynecology New Patient Consult Marnie Duvall [...] seen at another urogynecologist Never seen at [facility] urogynecology but was referred Prior treatments: [...] tablet pregabalin (LYRICA) 300 MG capsule rizatriptan (MAXALT-BULL RIVETER) 10 MG disintegrating tablet topiramate (TOPAMAX) 100 [...] Orders ICD-10-CM 1. Postmenopausal bleeding N95.0 OBGYN Pelvic/Beauty School Instructor Ultrasound 2. OAB (overactive bladder) N32.81 Urinalysis [...] in the bladder today Candice Coates MD [facility] Urogynecology/Female Pelvic Medicine and Reconstructive Surgery This note contains medical terminology which is meant for communication between health care physicians and providers. Please note that vocabulary/phrasing/abbreviations may not carry the same definitions as they would in normal conversational speech. This note was created using medical dictation software. Please excuse any typographical errors in poly operator. documented in this encounter Plan of Treatment Upcoming Encounters Date Type Department Care Team (Late st Contact Info) Description 02/20/2024 2:00 PM REPAIRER SWITCHGEAR Appointment [facility] UroGynecology [address] [place] [address] Candice Coates MD [address] [place] [address] 02/24/2024 8:45 AM REPAIRER SWITCHGEAR Appointment [facility] UroGynecology [address] [place] [address] Candice Coates MD [address] [place] [address] 05/02/2024 10:40 AM REPAIRER SWITCHGEAR Hospital Encounter [facility] Same Day Surgery Center [address] [place] [address] Candice Coates MD [address] [place] [address] 05/02/2024 10:40 AM REPAIRER SWITCHGEAR - 05/02/2024 12:15 PM REPAIRER SWITCHGEAR Surgery [facility] Same Day Surgery [address] [address] Candice Coates MD [address] [place] [address] Insertion of sacral neuromodulation lead 05/17/2024 10:45 AM REPAIRER SWITCHGEAR Appointment [facility] UroGynecology [address] [place] [address] Candice Coates MD [address] [facility] [address] [place], [place] [phone] Scheduled Procedures Name Priority Associated Diagnoses Date/Ti me INSERTION SACRAL NEUROSTIMULATOR STAGE ONE OAB (overactive bladder) Urge incontinence 05/02/2024 10:40 AM REPAIRER SWITCHGEAR INSERTION SACRAL NEUROSTIMULATOR STAGE TWO OAB (overactive bladder) Urge incontinence 05/02/2024 10:40 AM REPAIRER SWITCHGEAR documented as of this encounter Procedures Procedure Name Priority Date/Time Associated Diagnosis Comments URINALYSIS ROUTINE, MICRO/CULTURE IF POS Routine 10/17/2023 11:24 AM CDT OAB (overactive bladder) Urge incontinence documented in this encounter Results * (ABNORMAL) OBGYN Pelvic/Beauty School Instructor Ultrasound (10/17/2023 1:39 PM CDT) Uterus AP Diameter (Height) 2.60 cm EXTERNAL RESULTS Uterus Longitudinal Diameter (Length) 6.40 cm EXTERNAL RESULTS Uterus Transverse Diameter (Width) 3.50 cm EXTERNAL RESULTS Uterus Volume 30.49 ml ROOF BOLTING COAL MINER AL RESULTS Endometrium Thickness 6.10 mm EXTERNAL [...] from the original result was not included. SHEET METAL WELDER Ultrasound Exam performed on: ??10/17/2023 Referring provider: Candice Coates MD Referring clinic: [facility] UR[facility]YNECOLOG[facility] Clinical indications: Postmenopausal bleeding Energy Project Engineer(s) initials: The pelvic organs are imaged using: [...] up with referring provider. ??Recommend consultation with food production supervisor for hysteroscopy. ??Patient requested expedited surgery scheduling therefore surgical orders were placed. ?? Carol Phillips MD Candice Coates MD RAD US * (ABNORMAL) Urinalysis Routine, Micro/Culture if Pos: Straight catheter (10/17/2023 11:24 AM CDT) Urine Culture Comment Urinalysis results do not meet criteria for urine culture reflex. 10/17/2023 11:41 AM [facility] Urine Color Yellow 10/17/2023 11:41 AM [facility] Urine Clarity Clear Clear 10/17/2023 11:41 AM [facility] Specific [place], Urine <=1.005(A) 1.005 - 1.030 10/17/2023 11:41 AM [facility] PH Urine 6.0 5.0 - 8.0 10/17/2023 11:41 AM [facility] Protein, Urine Qual (mg/dL) Negative Neg/Trace 10/17/2023 11:41 AM [facility] Glucose Urine Qual (mg/dL) Negative Negative 10/17/2023 11:41 AM [facility] Ketones, Urine (mg/dL) Negative Negative 10/17/2023 11:41 AM [facility] Urobilinogen, Urine (EU/dL) 0.2 <2.0 10/17/2023 11:41 AM [facility] Bilirubin Urine Negative Negative 10/17/2023 11:41 AM [facility] Blood, Urine Negative Neg/Trace 10/17/2023 11:41 AM [facility] Nitrite Urine Negative Negative 10/17/2023 11:41 AM [facility] Leukocyte Est. Negative Negative 10/17/2023 11:41 AM [facility] Urine Source Straight catheter 10/17/2023 11:41 AM [facility] Urine (Straight catheter) Non-blood Collection / Unknown 10/17/2023 11:24 AM CDT 10/17/2023 11:39 AM CDT Candice Coates MD LAB_1 [facility] [address] documented in this encounter Visit Diagnoses Diagnosis Postmenopausal bleeding- Primary OAB (overactive bladder) Hypertonicity of bladder Urge incontinence Mixed stress and urge urinary incontinence Mixed incontinence urge and stress (male)(female) Urinary retention Retention of urine, unspecified Postmenopausal bleeding- Primary OAB (overactive bladder) Hypertonicity of bladder Urge incontinence documented in this encounter Additional Health Concerns Infection Onset Date Last Indicated Resolved Time MRSA Comment:Beronica 12-29-14, 01/06/16 12/30/2014 12/30/2014 documented as of this encounter Care Teams Piano Regulator Inspector Relationship Specialty Start Date End Date Nikita Gamble MD [address] [place] [address] PCP - General Family Practice 06/23/23 documented as of this encounter
--- OUTSIDE RECORDS SUMMARY | 2024-01-25 12:33 | XMS_ITS | Encounter Summary ---
Author Organization [facility] Address [address] [place] [address] Care Team Providers Care Upper Cutter Out Name Role Phone Nikita Gamble MD Primary Care Provider Reason for Visit * Auth/Cert (Routine) Specialty Diagnoses / Procedures Referred By Contac t Referred To Contact Diagnoses Postmenopausal bleeding . Procedures HYSTEROSCOPY WITH MYOSURE, polypectomy Referral ID Status Reason Start Date Expiration Date Visits Re quested Visits Authorized [id number] 1 1 Encounter Details Date Type Department Care Team (Late st Contact Info) Description 12/14/2023 10:04 AM CDT Anesthesia Event [facility] Operating Room [address] [place] [address] Sridhar Walter MD [address] [place] [address] Karmen Dorantes APRN, [facility] [address] [place] [address] Anesthesia Record Procedure Summary Procedure Name Responsible [...] report Electronically signed by Karmen Dorantes APRN, SUPERVISOR TOY ASSEMBLY [address] [facility] transferre d. Meds Name Total propofol 10 [...] Walter MD - 12/14/2023 2:10 PM CDT [facility] Anesthesia Post-op Note Patient: Marnie Duvall Post-Op [...] Walter MD - 12/14/2023 9:32 AM CDT [facility] Anesthesia Pre-op Evaluation Procedure: HYSTEROSCOPY WITH MYOSURE, [...] Heart protection ??? Blood Glucose Monitoring Suppl (Adcade CONTOUR MONITOR) W/DEVICE KIT kit As instructed [...] mg) by mouth every 8 hours. ??? Camalize SL G7 Sensor continuous blood glucose device Use [...] dose Indications: Insulin- Dependent Diabetes ??? lancets (Adcade MICROLET LANCETS) Use as directed. Pharmacy dispense [...] mouth two times a day. ??? rizatriptan (MAXALT-PROPERTY MANAGEMENT SUPERVISOR) 10 MG disintegrating tablet Take 1 [...] QT 402 ms QTc 442 ms P Desdemona 59 degrees R Desdemona 36 degrees T Desdemona 67 degrees Physical Exam: BP (!) 143/57 [...] damaging the partial. The patient and/or their outbound sales representative were notified about the potential risks of damage to the lips, teeth, dental devices, mouth and airway. H&P Reviewed and Patient examined, no change observed IV access Antibiotics per surgery Electronically signed by: Sridhar Walter MD 12/14/2023 9:32 AM documented in this encounter Plan of Treatment Upcoming Encounters Date Type Department Care Team (Late st Contact Info) Description 02/20/2024 2:00 PM MOVIE ACTOR Appointment [facility] UroGynecology [address] [place] [address] Candice Coates MD [address] [place] [address] 02/24/2024 8:45 AM MOVIE ACTOR Appointment [facility] UroGynecology [address] [place] [address] Candice Coates MD [address] [place] [address] 05/02/2024 10:40 AM MOVIE ACTOR Hospital Encounter [facility] Same Day Surgery [facility] [address] [place] [address] Candice Coates MD [address] [place] [address] 05/02/2024 10:40 AM MOVIE ACTOR - 05/02/2024 12:15 PM MOVIE ACTOR Surgery [facility] Same Day Surgery [facility] [address] [place] [address] Candice Coates MD [address] [place] [address] Insertion of sacral neuromodulation lead 05/17/2024 10:45 AM MOVIE ACTOR Appointment [facility] UroGynecology [address] [place] [address] Cnadice Coates MD [address] [place] [address] Scheduled Procedures Name Priority Associated Diagnoses Date/Ti me INSERTION SACRAL NEUROSTIMULATOR STAGE ONE OAB (overactive bladder) Urge incontinence 05/02/2024 10:40 AM MOVIE ACTOR INSERTION SACRAL NEUROSTIMULATOR STAGE TWO OAB (overactive bladder) Urge incontinence 05/02/2024 10:40 AM MOVIE ACTOR documented as of this encounter Visit Diagnoses [...] Tue12/14/23 at 1015, Until Tue12/14/23 at 1132 Started 12/14/2023 10:15 AM CDT [...] documented as of this encounter Care Teams Upper Cutter Out Relationship Specialty Start Date End Date Nikita Gamble MD [address] [place] [address] PCP - General Family Practice 06/23/23 documented as of this encounter
--- OUTSIDE RECORDS SUMMARY | 2024-01-25 12:33 | XMS_ITS | Encounter Summary ---
Author Organization [facility] Address [address] [place] [address] Care Team Providers Care Senior Technical Architect Name Role Phone Nikita Gamble MD Primary Care Provider Reason for Visit * Reason Comments PHONE CALL TO PATIENT Encounter Details Date Type Department Care Team (Late st Contact Info) Description 12/30/2023 Telephone Careline [address] [place], [place] [phone] Nikita Gamble MD [address] [place] [address] PHONE CALL TO PATIENT Social History Tobacco [...] provider/clinic where you are seen for this? ITALO/Diana/Sepideh/Jimmy Are you calling about a /GROUP COUNSELOR related concern? No Message to Provider Patient [...] st Contact Info) Description 02/20/2024 2:00 PM PHILOSOPHY LECTURER Appointment [facility] UroGynecology [address] [place] [address] Candice Coates MD [address] [place] [address] 02/24/2024 8:45 AM PHILOSOPHY LECTURER Appointment [facility] UroGynecology [address] [place] [address] Candice Coates MD [address] [place] [address] 05/02/2024 10:40 AM PHILOSOPHY LECTURER Hospital Encounter [facility] Same Day Surgery [facility] [address] [place] [address] Candice Coates MD [address] [place] [address] 05/02/2024 10:40 AM PHILOSOPHY LECTURER - 05/02/2024 12:15 PM PHILOSOPHY LECTURER [facility] [address] [place] [address] Candice Coates MD [address] [place] [address] Insertion of sacral neuromodulation lead 05/17/2024 10:45 AM PHILOSOPHY LECTURER Appointment [facility] UroGynecology [address] [place] [address] Candice Coates MD [address] [place] [address] Scheduled Procedures Name Priority Associated Diagnoses Date/Ti me INSERTION SACRAL NEUROSTIMULATOR STAGE ONE OAB (overactive bladder) Urge incontinence 05/02/2024 10:40 AM PHILOSOPHY LECTURER INSERTION SACRAL NEUROSTIMULATOR STAGE TWO OAB (overactive bladder) Urge incontinence 05/02/2024 10:40 AM PHILOSOPHY LECTURER documented as of this encounter Visit Diagnoses Not on filedocumented in this encounter Additional Health Concerns Infection Onset Date Last Indicated Resolved Time MRSA Comment:Beronica 10-4-15, 01/06/16 12/30/2014 12/30/2014 documented as of this encounter Care Teams Senior Technical Architect Relationship Specialty Start Date End Date Nikita Gamble MD [address] [place] [address] PCP - General Family Practice 06/23/23 documented as of this encounter
--- OUTSIDE RECORDS SUMMARY | 2024-01-25 12:33 | XMS_ITS | Clinical Summary ---
Author Organization [facility] Address [address] [place] [id number] Care Team Providers Care Nurses[employer] Counselor Name Role Phone Nikita Gamble MD Primary Care Provider Source Comments You are receiving this document as you are listed as the primary care provider,follow-up provider, or the patient has been referred to you for consultation.This is in compliance with the Medicare and[facility] EHR Incentive Program,which states Providers who transition their patient to another setting of careor provider of care or refers their patient to another provider of care shouldprovide summary care record for each transition of care or referral. [facility] Allergies Active Allergy Reactions Criticality Noted Date [...] Diabetes 15 mL 11 06/11/2015 Active rizatriptan (MAXALT-IN HOUSE CRA) 10 MG disintegrating tablet Take 1 Tablet [...] 1 diabetes mellitus with diabetic neuropathy, unspecified ([facility]) Use for continuous [...] up to 30 days. 180 Tablet 12/14/2023 01/13/20 24 Active Problems Patient Care Coordination No te Formatting of this note migh t be different from the original. [facility] Care Management Marnie Duvall Was offered case management support for recent hospitalization for hypovolemic shock. She declined resources. My name and phone# given for future support. Case closed. Pam Hernandez RN 01/04/2024, 2:40 PM [phone] Problem Noted Date Diagnosed Date OAB (overactive bladder) 01/09/2024 Urge incontinence 01/09/2024 Postmenopausal bleeding 10/17/2023 Bilateral leg edema 06/23/2023 Urge incontinence of urine 06/23/2023 Anemia 06/23/2023 Stage 3b chronic kidney disease 06/23/2023 Obesity (BMI 30-39.9) 06/23/2023 Knee osteoarthritis 01/10/2023 Overview (01/10/2023): bilateral, has had injections. Hurts daily. Pain 7-11/04. Can't be seen at [place], owes them money. They suggested 2 total [...] Encounters Date Type Department Care Team Description 01/09/2024 1:15 PM CDT [facility] UroGynecology [address] [place] [id number] Candice Coates MD OAB (overactive bladder) (Primary Dx); Urge incontinence 01/03/2024 Telephone [facility] [address] [facility] [place] [address] Carol Phillips MD LAB RESULTS 12/30/2023 Telephone Careline [address] [place] [address] Nikita Gamble MD PHONE CALL TO PATIENT 12/29/2023 8:30 AM CDT [facility] UroGynecology [address] [place] [address] Candice Coates MD OAB (overactive bladder) (Primary Dx); Mixed stress and urge urinary incontinence 12/14/2023 10:04 AM CDT Anesthesia Event Operating Room [address] [place] [address] Sridhar Walter MD Lange, Beth N, APRN, MORNING SHOW [employer] PRODUCER 12/14/2023 10:00 AM CDT - 12/14/2023 11:15 AM CDT Surgery Operating Room [address] [place] [address] Carol Phillips MD HYSTEROSCOPY WITH TRUCLEAR, polypectomy, PAP SMEAR AND VULVAR BIOPSY 12/14/2023 8:02 AM CDT - 12/14/2023 12:46 PM CDT Hospital Encounter Operating Room [address] [place] [phone] Carol Phillips MD Postmenopausal bleeding Discharge Disposition: Home 12/07/2023 Telephone [facility] [address] [place] [address] Logan Parra PA-C 12/01/2023 8:15 AM CDT Office Visit [facility] [address] [place] [address] Mixed stress and urge urinary incontinence (Primary Dx) 11/22/2023 3:40 PM CDT Telemedicine [facility] [address] [place] [address] Carol Phillips MD Endometrial polyp (Primary Dx); PMB (postmenopausal bleeding); Genitourinary syndrome of menopause 10/27/2023 3:00 PM CDT Lab Visit [facility] [address] [place] [address] Routine medical exam from Last 3 Months Immunizations Name Administration Dates Next Due Influenza IIV4 (Quadrivalent) 0.5mL (09334) 07/2014 Family History Medical History Relation Name [...] st Contact Info) Description 02/20/2024 2:00 PM SENIOR QUALITY ENGINEER Appointment [facility] UroGynecology [address] [place] [address] Candice Coates MD [address] [place] [phone] 02/24/2024 8:45 AM SENIOR QUALITY ENGINEER Appointment [facility] UroGynecology [address] [place] [address] Candice Coates MD [address] [place] [address] 05/02/2024 10:40 AM SENIOR QUALITY ENGINEER Hospital Encounter [facility] [address] [place] [address] Candice Coates MD [address] [place] [address] 05/02/2024 10:40 AM SENIOR QUALITY ENGINEER - 05/02/2024 12:15 PM SENIOR QUALITY ENGINEER Surgery [facility] [address] [place] [address] Candice Coates MD [address] [place] [address] Insertion of sacral neuromodulation lead 05/17/2024 10:45 AM SENIOR QUALITY ENGINEER Appointment [facility] UroGynecology [address] [place] [address] Candice Coates MD [address] [place] [address] Scheduled Procedures Name Priority Associated Diagnoses Date/Ti me INSERTION SACRAL NEUROSTIMULATOR STAGE ONE OAB (overactive bladder) Urge incontinence 05/02/2024 10:40 AM SENIOR QUALITY ENGINEER INSERTION SACRAL NEUROSTIMULATOR STAGE TWO OAB (overactive bladder) Urge incontinence 05/02/2024 10:40 AM SENIOR QUALITY ENGINEER Health Maintenance Due Date Last Done Comments [...] , 02/07/2023, Additional history exists COVID-19 Vaccine (3 - 2023- season) 2023 06/12/2020, 05/22/2020 Influenza (#1) 2023 02/14/2023, 09/2021, 12/16/2020, Additional history exists Cervical Cancer Screening [...] 10/27/2023 3:14 PM CDT Routine medical exam RENAL FUNCTION PANEL Routine 08/05/2023 2:00 PM [...] AM CDT) Case Report Surgical Pathology ?Case: [id number] ? Authorizing Provider: ??Carol Phillips MD ?Collected: ? 12/14/2023 1104 ? Ordering Location: ? [facility] Operating Room ?Received: ?12/14/2023 1132 ? Pathologist: ? Joann Mckeon MD ? Specimens: ?? A) - Labia, left, Left superior labial biopsy ? B) - Vulva, Left vestibule ? C) - Uterus, Endometrial currettings ? 12/22/2023 1:37 PM [facility] FINAL DIAGNOSIS A. Skin, Labia, left [...] Clinical correlation is recommended. 12/22/2023 1:37 PM [facility] Clinical Information Postmenopausal bleeding 12/22/2023 1:37 PM [facility] Microscopic Description A. Microscopic examination including multiple deeper recut sections is performed. B/C. Microscopic examination is performed. 12/22/2023 1:37 PM [facility] Special Stains The stain controls have been reviewed and stain appropriately. 12/22/2023 1:37 PM [facility] Gross Description A: The specimen is [...] in 1 cassette. TK 12/22/2023 1:37 PM [facility] Embedded Images 12/22/2023 1:37 PM [facility] Tissue GENITAL LABIUM STRUCTURE / Unknown 12/14/2023 11:04 AM CDT 12/14/2023 11:32 AM CDT Tissue specimen (specimen) VULVAL STRUCTURE / Unknown 12/14/2023 11:09 AM CDT 12/14/2023 11:32 AM CDT Tissue specimen (specimen) UTERINE STRUCTURE / Unknown 12/14/2023 11:16 AM CDT 12/14/2023 11:32 AM CDT Carol Phillips MD LAB PATHOLOGY [address] [address], [facility] * PAP Test (12/14/2023 10:52 AM CDT) Case Report Pap ? Case: [id number] ? Authorizing Provider: ??Carol Phillips MD ?Collected: ? 12/14/2023 1052 ? Ordering Location: ? [facility] Operating Room ?Received: ?12/14/2023 1155 ? First Screen: ?Hollie, Laurita R, CT ? (ASCP) ? Specimen: ?Pap Test, Routine, Cervix/Endocervix ? 12/29/2023 12:08 PM [facility] Pap Specimen Adequacy Satisfactory for evaluation, endocervical/herrera sformation zone component present. 12/29/2023 12:08 PM [facility] Pap Interpretation (NILM) Negative for intraepithelial lesion or malignancy. 12/29/2023 12:08 PM [facility] Pap Disclaimer The Pap test is a screening test to aid in the detection of cervical and vaginal cancers and their precursor lesions. It is not a diagnostic procedure and should not be used as the sole means of detecting malignancy. Both false-positive and false-negative results may occur. 12/29/2023 12:08 PM [facility] Gross Description The specimen is received in SurePath fixative and properly labeled. 1 Pap-stained SurePath slide is prepared. 12/29/2023 12:08 PM [facility] Embedded Images 12:08 PM [facility] Other Specimen Type ENTIRE ENDOCERVIX / Unknown 12/14/2023 10:52 AM CDT 12/14/2023 11:55 AM CDT Comment:LMP: No LMP recorded . Patient is postmenopausal. Carol Phillips MD LAB PATHOLOGY Performing Organization Address City/State/[facility] Co de Phone Number [address] * HPV Genotyping PCR (Cervical/Endocervical ONLY) (12/14/2023 10:52 AM CDT) HPV High Risk Type 16 PCR Not Detected Not detected 12/29/2023 12:08 PM [facility] HPV High Risk Type 18 PCR Not Detected Not Detected 12/29/2023 12:08 PM [facility] HPV High Risk Other Than 16/18 Not Detected Not detected 12/29/2023 12:08 PM [facility] Cervical Broom ENTIRE ENDOCERVIX / Unknown 12/14/2023 10:52 AM CDT 12/14/2023 10:57 AM CDT [facility] - 12/29/2023 12:08 PM CDT [facility] [...] Carol Phillips MD LAB_1 Performing Organization Address [facility]/ZIP Co de Phone Number [address] * Glucose, Whole Blood POCT (12/14/2023 9:03 AM CDT) Glucose, Whole Blood 174 70 - 180 mg/dL 12/14/2023 9:05 AM CDT [facility] Performing Location [facility] 12/14/2023 9:05 AM CDT [facility] Blood 12/14/2023 9:03 AM CDT 12/14/2023 9:05 AM CDT Carol Phillips MD LAB_1 Performing Organization Address [facility] Co de Phone Number [address] * DNA Analysis Discrete Sequence Variation Panel (Blood) (Initial) (10/27/2023 3:14 PM CDT) Date Sample Received at Testing Lab 10/29/2023 12/28/2023 4:09 PM CDT [place] Familial Hypercholesterolemia Not Detected 12/28/2023 4:09 PM CDT [facility] Comment: Pathogenic variant not detected. Genes Tested: BRCA1, BRCA2, MLH1, MSH2, MSH6, PMS2, EPCAM, APOB, LDLR, LDLRAP1, PCSK9 Test Description: [facility] Tier One Population Screen is a screening [...] This test was developed and validated by [facility]. This test has not been cleared or approved by the [place] Food and Drug Administration (FDA). The [facility] laboratory is accredited by the College [employer] [place] [employer] (CAP) and certified under the Clinical Laboratory Improvement Amendments (CLIA #: [id number]) to perform high-complexity clinical tests. This test is used for clinical purposes. It should not be regarded as investigational or for research. Methods and Limitations: Extracted DNA is enriched for targeted regions and then sequenced using the [facility] Exome+ (R) assay on an Illumina DNA sequencing system. Data is then aligned to a modified version of GRCh38 and all genes are analyzed using the MIREYA transcript and MIREYA Plus Clinical transcript, when available. Small variant calling is completed using a customized version of [employer] software, augmented by a proprietary small variant [...] is based upon guidelines published by the [place] [employer] (ACMG) and the Association for Molecular Pathology (AMP) or their modification by [employer]Gen Variant Curation Expert Panels when available. Interpretation is limited to the transcripts indicated on the report and +/- 10 bp into intronic regions, except as noted below. Albert variant classifications include pathogenic, likely pathogenic, variant [...] the promoter. Sequencing Location: Sequencing done at [facility] [address] [place] [address] [address], [place] [address] ([facility]# [id number]) Designation: Venkata Ma, PhD, FACG Email: [email or web address] Breast and Ovarian Cancer Syndrome Not Detected 12/28/2023 4:09 PM CDT [facility] Comment:Pathogenic variant n ot detected. Pleitez Syndrome Not Detected 12/28/2023 4:09 PM CDT [facility] Comment:Pathogenic variant n ot detected. Blood or Saliva VENOUS BLOOD SPECIMEN / Unknown 10/27/2023 3:14 PM CDT 10/27/2023 3:14 PM CDT Everardo Go MD LAB_1 [place] [address] [facility] [address] [place] [address] * (ABNORMAL) Renal Function Panel (08/05/2023 2:00 PM CDT) Sodium 135(L) 136 - 145 mmol/L 08/05/2023 6:52 PM CDT [facility] Potassium 4.7 3.5 - 5.1 mmol/L 08/05/2023 6:52 PM CDT [facility] Chloride 102 98 - 109 mmol/L 08/05/2023 6:52 PM T [facility] CO2 23 20 - 29 mmol/L 08/05/2023 6:52 PM T [facility] Anion Gap 10 6 - 16 mmol/L 08/05/2023 6:52 PM T [facility] Calcium 9.4 8.4 - 10.4 mg/dL 08/05/2023 6:52 PM T [facility] BUN 24 7 - 26 mg/dL 08/05/2023 6:52 PM T [facility] Creatinine 1.62(H) 0.55 - 1.02 mg/dL 08/05/2023 6:52 PM T [facility] Albumin 3.6 3.5 - 5.0 g/dL 08/05/2023 6:52 PM T [facility] Phosphorus 2.8 2.3 - 4.7 mg/dL 08/05/2023 6:52 PM [facility] Glucose 93 70 - 100 mg/dL 08/05/2023 6:52 PM [facility] Comment:The given reference range is for the fasting state. Non-fasting reference range for glucose is 70 - 180 mg/dL. GFR, Estimated 37(L) >60 mL/min/1. 73m2 08/05/2023 6:52 PM T [facility] Hours Fasting 0.1 8 - 12 Hours 08/05/2023 6:52 PM [facility] Blood Venipuncture / Unknown 08/05/2023 2:00 PM CDT 08/05/2023 2:00 PM CDT Nancy Stock MD LAB_1 [facility] [address] * (ABNORMAL) HgbA1c - Collect in Lab (08/05/2023 2:00 PM CDT) Hemoglobin A1C 8.3(H) <=5.6 % 08/05/2023 7:54 PM T [facility] Estimated Average Glucose (Calc) 192 < 117 mg/dL 08/05/2023 7:54 PM CDT [facility] Comment:Estimated average gl ucose (eAG) converts A1c into glucose units (mg/dL) and estimates average glucose over the past approximately 3 months. The eAG reference interval (<117 mg/dL) corresponds to an A1c of <5.7%. Blood Venipuncture / Unknown 08/05/2023 2:00 PM CDT 08/05/2023 2:00 PM CDT Narrative [facility] - 08/05/2023 7:54 PM CDT For patients not previously diagnosed with diabetes: 5.7-6.4%: Increased risk for diabetes 6.5% and greater: Diagnostic for diabetes For patients diagnosed with diabetes: <8.0%: Goal of therapy for ages 18-75 Clinicians may recommend a higher or lower goal for specific individuals. Logan Parra PA-C LAB_1 Performing Organization Address [facility] Co de Phone Number [facility] [address] * (ABNORMAL) Albumin/Creatinine Ratio,Random Urine (06/23/2023 12:28 PM CDT) Albumin/Creati nine Ratio, Urine, Random 75(H) <30 mg/g 06/23/2023 7:38 PM CDT [facility] Albumin, Urine, Random 44.2 mg/L 06/23/2023 7:38 PM CDT [facility] Creatinine, Urine, Random 59 >20 mg/dL mg/dL 06/23/2023 7:38 PM CDT [facility] Urine Non-blood Collection / Unknown 06/23/2023 12:28 PM CDT 06/23/2023 12:28 PM CDT Nancy Stock MD LAB_1 Performing Organization Address [facility] Co de Phone Number [facility] [address] from Last 3 Months or Most Recently Relevant to Health Maintenance Additional Health Concerns Infection Onset Date Last Indicated MRSA Comment:Beronica 12-29-15, 01/06/16 12/30/2014 12/30/2014 Advance Directives * Full Code (Latest Code Status on File) Date Activated Date Inactivated Comments 04/28/2015 1:31 AM 04/30/2015 6:39 PM * Full Code Date Activated Date Inactivated Comments 12/29/2014 11:37 AM 12/30/2014 6:20 PM Care Teams Nurses' Association Counselor Relationship Specialty Start Date End Date Nikita Gamble MD [address] [place] [address] PCP - General Family Practice 06/23/23
--- OUTSIDE RECORDS SUMMARY | 2024-01-25 12:33 | XMS_ITS | Encounter Summary ---
Author Organization [facility] Address [address] [place] [address] Care Team Providers Care Supervisor Painting Shipyard Name Role Phone Nikita Gamble MD Primary Care Provider [phone] Reason for Referral * Procedure/Equipment (Routine) - Incomplete Specialty Diagnoses / Procedures Referred By Contac t Referred To Contact Diagnoses OAB (overactive bladder) Urge incontinence Procedures Case Request OR - Gynecologic Surg: Insertion of sacral neuromodulation lead, INSERTION of sacral neuromodulation battery/[place] [address] [place] [address] Referral ID Status Reason Start Date Expiration Date V isits Requested Visits Authorized [id number] Incomplete 01/09/2024 04/09/2025 1 1 Reason for Visit * Reason Comments Video Visit Encounter Details Date Type Department Care Team (Late st Contact Info) Description 01/09/2024 1:15 PM CDT [facility] UroGynecology [address] [place] [address] [place] [address] [place] [address] OAB (overactive bladder) (Primary Dx); Urge incontinence Social History Tobacco Use Types Packs/Day [...] this encounter Patient Instructions * Patient Instructions* Candice Coates MD - 01/09/2024 1:15 PM CDT [email or web address]/[email or web address] Stop oxybutynin 3 days prior to the test in the office Bladder diary 2 days prior to the implant and bring to the clinic Instructions Your follow up appointment will be scheduled with one of the Urogynecology care team members. This may be one of our physician assistants. They are always in direct communication with your physician who remains responsible for your Urogynecology care at [facility]. Lab or Imaging Results If labs were ordered, you will receive the results via your ShareWith[employer]) account if you have one. Results are automatically released to your [facility] (nap- Naturally Att[employer] Parents) account once available. This means that you may see your results before we have had a chance to review them. After the results become available, comments from our team are typically posted to your [facility] (nap- Naturally [employer] Parents) account within 2-5 business days. We usually wait until all or nearly all of the lab results have returned and make a onetime comment rather than comment on each lab result individually. Please donot send a nap- [employer] Parents message requesting follow up/advice on labs or [...] you. If you do not have a [employer] account, results typically arrive by mail within [...] you! Get Cost of Care Estimates - [phone] The health insurance marketplace has changed dramatically in the last few years. Our cost of care service will provide estimates over the phone for treatments or procedures billed through [facility]. To receive a cost estimate, simply call [phone] during regular business hours. If you have insurance coverage, you will need to verify your policy of coverage with your health plan by calling the number located on the back of your insurance card and talking to member services. documented in this encounter Progress Notes * Candice Coates MD - 01/09/2024 1:15 PM CDT [facility] Urogynecology- Follow up Note Marnie Duvall : 1965 Date of Service: 01/09/2024 Chief complaint: Chief Complaint Patient presents with Video Visit Marnie Duvall is a 58 y.o. F who presents today for follow up of urge incontinence, OAB Medical history is significant for: CKD 3 , DM type I, HTN, h/o PE, JUSTO, seizure, depression, obesity BMI 33 Surgical history is significant for: Nephrectomy (Right) [...] of 156c and cough with pressure of 079thA3O and volume of 156cc ; MUCP [id number] Voiding: complete voiding by detrusor contraction and some valsalva effort as well. Normal post void residual Pdet at Qmax: 28cm/H2O ;Qmax: 27ml/sec Today 01/09/24 Marnie presents for follow up Since her last visit Marnie completed urodynamics She notes that today she was treated for sepsis for likely oral source of sepsis , she had hypovolemia and hypokalemia; she had recently had her teeth pulled Initially she was at [facility], her wbc was high but the culture was negative from the blood She was treated with zosyn She also had an echo for evaluation given LE edema, She is decreased her diet soda intake per day and mostly drinking water She has stopped oxybutynin She is leaking all the time ; The larger leaks were associated with urgency Stress incontinence does not seem to be a bother or issue She has restarted oxybutynin She is most intersted in [facility] We reviewed the procedure in d etail and all questions answered Follow up for interstim trial Past Medical History: Diagnosis Date Chronic kidney [...] education level: Not on file Occupational History 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 Diagnoses and all orders for this visit: OAB (overactive bladder) - Case Request OR - Gynecologic Surg: Insertion of sacral neuromodulation lead, INSERTION of sacralneuromodulation battery/neurostimulator; Standing - Implement Hysterectomy and Other TRAVELIFT OPERATOR Surgery Pre Op Order Set; Standing - Void ratoprinter to OR; Standing - IV Insertion (peripheral); Standing - Focused Scrub to be done in Pre-op; Standing - NPO Except for: Sips with meds; Standing - DO NOT recheck EKG if done within the last 6 months and the patient has had no cardiac changes.; Standing - MD To Nurse Communication; Standing - DO NOT redraw lab if drawn within past 30 days at pre-op visit and the results are within normal range and no medications have changed.; Standing - Sequential Compression Devices (SCDs); Standing - lactated ringers infusion - ceFAZolin (ANCEF) 2 g in sodium chloride 0.9 % 50 mL IVPB - Case Request OR - Gynecologic Surg: Insertion of sacral neuromodulation lead, INSERTION of sacralneuromodulation battery/neurostimulator Urge incontinence - Case Request OR - Gynecologic Surg: Insertion of sacral neuromodulation lead, INSERTION of sacralneuromodulation battery/neurostimulator; Standing - Implement Hysterectomy and Other TRAVELIFT OPERATOR Surgery Pre Op Order Set; Standing - Void ratoprinter to OR; Standing - IV Insertion (peripheral); Standing - Focused Scrub to be done in Pre-op; Standing - NPO Except for: Sips with meds; Standing - DO NOT recheck EKG if done within the last 6 months and the patient has had no cardiac changes.; Standing - MD To Nurse Communication; Standing - DO NOT redraw lab if drawn within past 30 days at pre-op visit and the results are within normal range and no medications have changed.; Standing - Sequential Compression Devices (SCDs); Standing - lactated ringers infusion - ceFAZolin (ANCEF) 2 g in sodium chloride 0.9 % 50 mL IVPB - Case Request OR - Gynecologic Surg: Insertion of sacral neuromodulation lead, INSERTION of sacralneuromodulation battery/neurostimulator Plan: Interstim Today we discussed patients symptoms of refractory overactive bladder (urinary frequency, urinary urgency, urge incontinence) that has failed first and second line therapy. After discussion of third line options including botox, PTNS and interstim and the risks and benefits and expected outcomes of each of these therapies she desires to proceed with interstim. Specifically today we discussed the staged approach to treatment, expected 50% reduction in symptoms of urgency, frequency or urge incontinence. We discussed she will need to complete baseline voiding diary and also bladder diaries during testing period. After discussion she is interested in sacral nerve stimulation. We reviewed the procedure, the trial the possibility with failed trial. Reviewed risks that include infection, failure to improve the device. We will plan office procedure with basic evaluation followed by follow-up 1 week later than or procedure with implant of full device the following week. She was given a 3 day voiding diary to complete for baseline that she has previously completed Follow up for office interstim basic evaluation Given diabetes and infection may benefit from Tyrx pouch at full implant This visit was conducted via video. Location of clinician clinic. Location of patient home. Billing based on: Complexity Candice Coates MD [facility] Urogynecology/Female Pelvic Medicine and Reconstructive Surgery This note contains medical terminology which is meant for communication between health care physicians and providers. Please note that vocabulary/phrasing/abbreviations may not carry the same definitions as they would in normal conversational speech. This note was created using medical dictation software. Please excuse any typographical errors in glass novelty maker. documented in this encounter Plan of Treatment Upcoming Encounters Date Type Department Care Team (Late st Contact Info) Description 02/20/2024 2:00 PM ASSOCIATE APPLICATION DEVELOPER [facility] UroGynecology [address] [place] [address] Candice Coates MD [address] [place] [address] 02/24/2024 8:45 AM [facility] Appointment [facility] UroGynecology [address] [place] [address] Candice Coates MD [address] [place] [address] 05/02/2024 10:40 AM ASSOCIATE APPLICATION DEVELOPER Hospital Encounter [facility] Same Day Surgery [address] [address] Candice Coates MD [address] [place] [address] 05/02/2024 10:40 AM ASSOCIATE APPLICATION DEVELOPER - 05/02/2024 12:15 PM [facility] Surgery [facility] Same Day Surgery [address] [address] Candice Coates MD [address] [place] [address] Insertion of sacral neuromodulation lead 05/17/2024 10:45 AM ASSOCIATE APPLICATION DEVELOPER Appointment [facility] Uro[facility]cology [address] [place] [address] Candice Coates MD [address] [facility] [address] [place] [address] Scheduled Procedures Name Priority Associated Diagnoses Date/Ti me INSERTION SACRAL NEUROSTIMULATOR STAGE ONE OAB (overactive bladder) Urge incontinence 05/02/2024 10:40 AM ASSOCIATE APPLICATION DEVELOPER INSERTION SACRAL NEUROSTIMULATOR STAGE TWO OAB (overactive bladder) Urge incontinence 05/02/2024 10:40 AM ASSOCIATE APPLICATION DEVELOPER documented as of this encounter Visit Diagnoses Diagnosis OAB (overactive bladder)- Primary Hypertonicity of bladder Urge incontinence OAB (overactive bladder) Hypertonicity of bladder Urge incontinence OAB (overactive bladder) Hypertonicity of bladder Urge incontinence documented in this encounter Additional Health Concerns Infection Onset Date Last Indicated Resolved Time MRSA Comment:Beronica 10-4-15, 01/06/16 12/30/2014 12/30/2014 documented as of this encounter Care Teams Supervisor Painting Shipyard Relationship Specialty Start Date End Date Nikita Gamble MD [address] [place] [address] PCP - General Family Practice 06/23/23 documented as of this encounter
--- OUTSIDE RECORDS SUMMARY | 2024-01-25 12:33 | XMS_ITS | Encounter Summary ---
Author Organization [facility] Address [address] [place] [address] Care Team Providers Care Centerless Grinder Set Up Operator Name Role Phone Nikita Gamble MD Primary Care Provider Encounter Details Date Type Department Care Team (Late st Contact Info) Description 04/28/[address] [facility] Radiology [address] [place] [address] Radiology, Provider MRI SAFETY SHEET AND COMPATIBILITY [...] st Contact Info) Description 02/20/2024 2:00 PM HOTEL MANAGER Appointment [facility] UroGynecology [address] [place] [address] Candice Coates MD [address] [place] [address] 02/24/2024 8:45 AM HOTEL MANAGER Appointment [facility] UroGynecology [address] [place] [address] Candice Coates MD [address] [place] [address] 05/02/2024 10:40 AM HOTEL MANAGER Hospital Encounter [facility] Surgery [address] [address] Candice Coates MD [address] [place] [address] 05/02/2024 10:40 AM HOTEL MANAGER - 05/02/2024 12:15 PM HOTEL MANAGER Surgery [facility] [address] [address] Candice Coates MD [address] [place] [address] Insertion of sacral neuromodulation lead 05/17/2024 10:45 AM HOTEL MANAGER Appointment [facility] UroGynecology [address] [place] [address] Candice Coates MD [address] [place] [address] Scheduled Procedures Name Priority Associated Diagnoses Date/Ti me INSERTION SACRAL NEUROSTIMULATOR STAGE ONE OAB (overactive bladder) Urge incontinence 05/02/2024 10:40 AM HOTEL MANAGER INSERTION SACRAL NEUROSTIMULATOR STAGE TWO OAB (overactive bladder) Urge incontinence 05/02/2024 10:40 AM HOTEL MANAGER documented as of this encounter Visit Diagnoses Not on filedocumented in this encounter Additional Health Concerns Infection Onset Date Last Indicated Resolved Time MRSA Comment:Beronica --15, 01/06/16 12/30/2014 12/30/2014 documented as of this encounter Care Teams Centerless Grinder Set Up Operator Relationship Specialty Start Date End Date Nikita Gamble MD [address] [place] [address] PCP - General Family Practice 06/23/23 documented as of this encounter
--- OUTSIDE RECORDS SUMMARY | 2024-01-25 12:33 | XMS_ITS | Encounter Summary ---
Author Organization [facility] Address [address] [place] [address] Care Team Providers Care Global Chief Experience Officer Name Role Phone Nikita Gamble MD Primary Care Provider Encounter Details Date Type Department Care Team (Late Contact Info) Description 10/27/2023 3:00 PM CDT Lab Visit Specialty Center Laboratory [address] [facility] [place], [place] [phone] Routine medical exam Social History Tobacco Use [...] Encounters Date Type Department Care Team (Late Contact Info) Description 02/20/2024 2:00 PM EMERGENCY MANAGEMENT CONSULTANT Appointment [facility] UroGynecology [address] [place] [address] Candice Coates MD [address] [place] [address] 02/24/2024 8:45 AM EMERGENCY MANAGEMENT CONSULTANT Appointment [facility] UroGynecology [address] [place] [address] Candice Coates MD [address] [place] [address] 05/02/2024 10:40 AM EMERGENCY MANAGEMENT CONSULTANT Hospital Encounter [facility] Same Day Surgery Center [address] [place] [address] Candice Coates MD [address] [place] [address] 05/02/2024 10:40 AM EMERGENCY MANAGEMENT CONSULTANT - 05/02/2024 12:15 PM EMERGENCY MANAGEMENT CONSULTANT Surgery [facility] Same Day Surgery [address] [address] Candice Coates MD [address] [place] [address] Insertion of sacral neuromodulation lead 05/17/2024 10:45 AM EMERGENCY MANAGEMENT CONSULTANT Appointment [facility] UroGynecology [address] [place] [address] Candice Coates MD [address] [place] [address] Scheduled Procedures Name Priority Associated Diagnoses Date/Ti me INSERTION SACRAL NEUROSTIMULATOR STAGE ONE OAB (overactive bladder) Urge incontinence 05/02/2024 10:40 AM EMERGENCY MANAGEMENT CONSULTANT INSERTION SACRAL NEUROSTIMULATOR STAGE TWO OAB (overactive bladder) Urge incontinence 05/02/2024 10:40 AM EMERGENCY MANAGEMENT CONSULTANT documented as of this encounter Procedures Procedure [...] Hypercholesterolemia Not Detected 12/28/2023 4:09 PM CDT [place] Comment: Pathogenic variant not detected. Genes Tested: BRCA1, BRCA2, MLH1, MSH2, MSH6, PMS2, EPCAM, APOB, LDLR, LDLRAP1, PCSK9 Test Description: Single [facility]its Tier One Population Screen is a screening [...] This test was developed and validated by [facility]. This test has not been cleared or approved by the [place] Food and Drug Administration (FDA). The [facility] laboratory is accredited by the College [employer] (CAP) and certified under the Clinical Laboratory Improvement Amendments (CLIA #: [id number]) to perform high-complexity clinical tests. This test is used for clinical purposes. It should not be regarded as investigational or for research. Methods and Limitations: Extracted DNA is enriched for targeted regions and then sequenced using the Single [facility]its Exome+ (R) assay on an Illumina DNA sequencing system. Data is then aligned to a modified version of GRCh38 and all genes are analyzed using the MIREYA transcript and [employer] Plus Clinical transcript, when available. Small variant calling is completed using a customized version of [employer]'s Ecohausq software, augmented by a proprietary small variant [...] is based upon guidelines published by the [place] [employer] and Gen[employer] (ACMG) and the Association for Molecular Pathology (AMP) or their modification by ClinGen Variant Curation Expert Panels when available. Interpretation is limited to the transcripts indicated on the report and +/- 10 bp into intronic regions, except as noted below. Ida variant classifications include pathogenic, likely pathogenic, variant [...] the promoter. Sequencing Location: Sequencing done at [facility] [address] [facility], [address], [place] [address] (IA# [id number]) Designation: Venkata Ma, PhD, [facility] Email: [email or web address] Breast and Ovarian Cancer Syndrome Not Detected 12/28/2023 4:09 PM [employer] [facility] Comment:Pathogenic variant n ot detected. Pleitez Syndrome Not Detected 12/28/2023 4:09 PM [employer] [facility] Comment:Pathogenic variant n ot detected. Blood or Saliva VENOUS BLOOD SPECIMEN / Unknown 10/27/2023 3:14 PM CDT 10/27/2023 3:14 PM CDT Everardo Go MD LAB_1 Performing Organization Address City/State/[facility] Co de Phone Number [facility] [address] [facility] [address] [place] [address] documented in this encounter Visit Diagnoses Diagnosis Routine medical exam Routine general medical examination at a health care facility OAB (overactive bladder) Hypertonicity of bladder Urge incontinence documented in this encounter Additional Health Concerns Infection Onset Date Last Indicated Resolved Time MRSA Comment:Beronica 12-29-14, 01/06/16 12/30/2014 12/30/2014 documented as of this encounter Care Teams Global Chief Experience Officer Relationship Specialty Start Date End Date Nikita Gamble MD [address] [place] [address] PCP - General Family Practice 06/23/23 documented as of this encounter
--- OUTSIDE RECORDS SUMMARY | 2024-01-25 12:33 | XMS_ITS | Encounter Summary ---
Author Organization [facility] Address [address] [place] [address] Care Team Providers Care Barrel Tester Name Role Phone Nikita Gamble MD Primary Care Provider Reason for Visit * Reason Onset Date Comments Urodynamics 12/01/2023 Urodynamics 12/28/2023 Encounter Details Date Type Department Care Team (Latest Contact Info) Description 12/01/2023 8:15 AM CDT Office Visit Specialty Center [facility] U[facility] [address] [place] [address] Mixed stress and urge urinary incontinence (Primary [...] of water or juice today and tomorrow. (If suffering from incomplete emptying, please ask the fiscal assistant about specific directions). There are generally no adverse of long lasting side effects from Urodynamics testing. You may, however, experience a burning sensation of pass a small amount of blood when urinating for the next 24 to 48 hours. This is considered normal following catheterization. Please contact Dr. Candice Yap at [phone] if any problems should arise or you [...] Was this typical flow for the patient? [place] able to go, slight urge CMG Patient [...] uroflow Complex Cystometrogram: Performed using a #8 Eritrean dual lumen urethral catheter with simultaneous rectal [...] of 156c and cough with pressure of 733ydM1O and volume of 156cc Prolapse reduction stress test was not performed. Urethral Pressure Profile: This was performed using a #8 Eritrean urethral catheter with slow constant pull and [...] Mixed stress and urge urinary incontinence N39.46 78407 Cystometrogram W/Automobile Technician&Up 60224 Emg Anal/Ureth Sphincter-Not Needle 32911 Intraabdominal Pressure Test documented in this encounter Plan of Treatment Upcoming Encounters Date Type Department Care Team (Late st Contact Info) Description 02/20/2024 2:00 PM SENIOR COPYWRITER Appointment [facility] UroGy[facility] [address] [place] [address] Candice Yap MD [address] [place] [address] 02/24/2024 8:45 AM SENIOR COPYWRITER Appointment [facility] UroGynecology [address] [place] [address] Candice Yap MD [address] [place] [address] 05/02/2024 10:40 AM SENIOR COPYWRITER [facility] [address] [place] [address] Candice Yap MD [address] [place] [address], [place] [address] 05/02/2024 10:40 AM SENIOR COPYWRITER - 05/02/2024 12:15 PM SENIOR COPYWRITER [facility] [address] [place] [address] [place] [address] [place] [address] Insertion of sacral neuromodulation lead 05/17/2024 10:45 AM SENIOR COPYWRITER Appointment [facility] UroGynecology [address] [place] [address] Candice Yap MD [address] [place] [address] Scheduled Procedures Name Priority Associated Diagnoses Date/Ti me INSERTION SACRAL NEUROSTIMULATOR STAGE ONE OAB (overactive bladder) Urge incontinence 05/02/2024 10:40 AM SENIOR COPYWRITER INSERTION SACRAL NEUROSTIMULATOR STAGE TWO OAB (overactive bladder) Urge incontinence 05/02/2024 10:40 AM SENIOR COPYWRITER documented as of this encounter Visit Diagnoses Diagnosis Mixed stress and urge urinary incontinence- Primary Mixed incontinence urge and stress (male)(female) OAB (overactive bladder) Hypertonicity of bladder Urge incontinence documented in this encounter Additional Health Concerns Infection Onset Date Last Indicated Resolved Time MRSA Comment:Beronica 10-4-15, 01/06/16 12/30/2014 12/30/2014 documented as of this encounter Care Teams Barrel Tester Relationship Specialty Start Date End Date Nikita Gamble MD [address] [place] [address] PCP - General Family Practice 06/23/23 documented as of this encounter
--- OUTSIDE RECORDS SUMMARY | 2024-01-25 12:33 | XMS_ITS | Encounter Summary ---
Author Organization [facility] Address [address] [place] [address] Care Team Providers Care Loan Auditor Name Role Phone Nikita Gamble MD Primary Care Provider Reason for Visit * Reason Comments Surgery Scheduling Encounter Details Date Type Department Care Team ([facility] st Contact Info) Description 10/21/2023 [facility] Obstetrics and Gynecology [address] [place] [address]. [place], [place] [phone] Carol Phillips MD [address] [place] [address] [phone] Surgery Scheduling Social History Tobacco Use Types [...] 10/21/2023 12:49 PM CDT Surgery scheduled at [facility] on 12/14/23 for HYSTEROSCOPY WITH MYOSURE, polypectomy. Pre-op scheduled. Brochure sent via [employer]. Merlene Cornell 10/21/2023, 12:50 PM. documented in this encounter Plan of Treatment Upcoming Encounters Date Type Department Care Team (Late st Contact Info) Description 02/20/2024 2:00 PM COMMISSIONING ENGINEER Appointment [facility] UroGynecology [address] [place] [address] Candice Coates MD [address] [place] [address] 02/24/2024 8:45 AM COMMISSIONING ENGINEER Appointment [facility] UroGynecology [address] [place] [address] Candice Coates MD [address] [place] [address] 84[address] 05/02/2024 10:40 AM COMMISSIONING ENGINEER Hospital Encounter [facility] Same Day Surgery Center [address] [place] [address] Candice Coates MD [address] [place] [address] 19595 05/02/2024 10:40 AM COMMISSIONING ENGINEER - 05/02/2024 12:15 PM COMMISSIONING ENGINEER Surgery [facility] Same Day Surgery Center [address] [place] [address]27 Candice Coates MD [address] [place] [address] 36536 Insertion of sacral neuromodulation lead 05/17/2024 10:45 AM COMMISSIONING ENGINEER Appointment [facility] UroGynecology [address] [place] [address] 105[address] Candice Coates MD [address] [place] [address] Scheduled Procedures Name Priority Associated Diagnoses Date/Ti me INSERTION SACRAL NEUROSTIMULATOR STAGE ONE OAB (overactive bladder) Urge incontinence 05/02/2024 10:40 AM COMMISSIONING ENGINEER INSERTION SACRAL NEUROSTIMULATOR STAGE TWO OAB (overactive bladder) Urge incontinence 05/02/2024 10:40 AM COMMISSIONING ENGINEER documented as of this encounter Visit Diagnoses Not on filedocumented in this encounter Additional Health Concerns Infection Onset Date Last Indicated Resolved Time MRSA Comment:Beronica --15, 01/06/16 12/30/2014 12/30/2014 documented as of this encounter Care Teams Loan Auditor Relationship Specialty Start Date End Date Nikita Gamble MD [address] [place] [address] PCP - General Family Practice 06/23/23 documented as of this encounter
--- OUTSIDE RECORDS SUMMARY | 2024-01-25 12:33 | XMS_ITS | Encounter Summary ---
Author Organization [facility] Address [address] [place] [address] Care Team Providers Care Outside Sales Name Role Phone Nikita Gamble MD Primary Care Provider Encounter Details Date Type Department Care Team (Late st Contact Info) Description 12/29/2023 8:30 AM CDT [facility] UroGynecology [address] [place] [address] [place] [address] [place] [address] OAB (overactive bladder) (Primary Dx); Mixed stress [...] MD 12/29/2023, 8:44 AM Visit not completed [facility] Urogynecology- Follow up Note Marnie Duvall : [...] of 156c and cough with pressure of [id number] and volume of 156cc ; MUCP [id number] Voiding: complete voiding by detrusor contraction and [...] file Social Connections: Unknown (07/06/2022) Received from [facility] Social Connections Frequency of Communication with Friends and Family: Not on file Intimate Partner Violence: Not on file Housing Stability: Not on file OB History Para Term AB Living 0 0 0 0 0 0 SAB IAB Ectopic Multiple Live Births 0 0 0 0 0 Exam: Assessment: There are no diagnoses linked to this encounter. Plan: Candice Coates MD [facility] Urogynecology/Female Pelvic Medicine and Reconstructive Surgery This note contains medical terminology which is meant for communication between health care physicians and providers. Please note that vocabulary/phrasing/abbreviations may not carry the same definitions as they would in normal conversational speech. This note was created using medical dictation software. Please excuse any typographical errors in pier worker. Follow up: Notes: documented in this encounter Plan of Treatment Upcoming Encounters Date Type Department Care Team (Late st Contact Info) Description 02/20/2024 2:00 PM POLISHER APPRENTICE [facility] UroGynecology [address] [place] [address] Candice Coates MD [address] [place] [address] 02/24/2024 8:45 AM POLISHER APPRENTICE Appointment [facility] UroGynecology [address] [place] [address] 485[address] Candice Coates MD [address] [place] [address] 05/02/2024 10:40 AM POLISHER APPRENTICE Hospital Encounter [facility] Same Day Surgery Center [address] [place] [address] Candice Coates MD [address] [place] [address] 05/02/2024 10:40 AM POLISHER APPRENTICE - 05/02/2024 12:15 PM POLISHER APPRENTICE Surgery [facility] Same Day Surgery [address] [address] Candice Coates MD [address] [place] [address] 25749 Insertion of sacral neuromodulation lead 05/17/2024 10:45 AM POLISHER APPRENTICE Appointment [facility] UroGynecology [address] [place] [address] 50[address] Candice Coates MD [address] [place] [address]605 Scheduled Procedures Name Priority Associated Diagnoses Date/Ti me INSERTION SACRAL NEUROSTIMULATOR STAGE ONE OAB (overactive bladder) Urge incontinence 05/02/2024 10:40 AM POLISHER APPRENTICE INSERTION SACRAL NEUROSTIMULATOR STAGE TWO OAB (overactive bladder) Urge incontinence 05/02/2024 10:40 AM POLISHER APPRENTICE documented as of this encounter Visit Diagnoses Diagnosis OAB (overactive bladder)- Primary Hypertonicity of bladder Mixed stress and urge urinary incontinence Mixed incontinence urge and stress (male)(female) OAB (overactive bladder) Hypertonicity of bladder Urge incontinence documented in this encounter Additional Health Concerns Infection Onset Date Last Indicated Resolved Time MRSA Comment:Beronica 12-29-14, 01/06/16 12/30/2014 12/30/2014 documented as of this encounter Care Teams Outside Sales Relationship Specialty Start Date End Date Nikita Gamble MD [address] [place] [address] PCP - General Family Practice 06/23/23 documented as of this encounter
--- OUTSIDE RECORDS SUMMARY | 2024-01-25 12:33 | XMS_ITS | Encounter Summary ---
Author Organization [facility] Address [address] [place] [address] Care Team Providers Care Hot Mill Operator Name Role Phone Nikita Gamble MD Primary Care Provider [phone] Encounter Details Date Type Department Care Team (Late st Contact Info) Description 12/07/2023 Telephone [facility] [address] [place] [address]. [place], [place] [phone] Logan Parra PA-C [address] [place] [phone] Social History Tobacco Use Types Packs/Day Years [...] notes and lab attached). Faxed back at [phone]. Placed for scanning. Alex Villalba RN 12/07/2023 2:00 PM documented in this encounter Plan of Treatment Upcoming Encounters Date Type Department Care Team (Late st Contact Info) Description 02/20/2024 2:00 PM SIDE DOOR MAN Appointment [facility] UroGynecology [address] [place] [address] Candice Coates MD [address] [place] [address] 02/24/2024 8:45 AM SIDE DOOR MAN Appointment [facility] UroGynecology [address] [place] [address] Candice Coates MD [address] [place] [address] 298[address] 05/02/2024 10:40 AM SIDE DOOR MAN Hospital Encounter [facility] Same Day Surgery Center [address] [place] [address] Candice Coates MD [address] [place] [address] 10[address] 05/02/2024 10:40 AM SIDE DOOR MAN - 05/02/2024 12:15 PM SIDE DOOR MAN Surgery [facility] Same Day Surgery Center [address] [place] [address] 8[address] Candice Coates MD [address] [place] [address] 36431 Insertion of sacral neuromodulation lead 05/17/2024 10:45 AM SIDE DOOR MAN Appointment [facility] UroGynecology [address] [place] [address] Candice Coates MD [address] [place] [address] Scheduled Procedures Name Priority Associated Diagnoses Date/Ti me INSERTION SACRAL NEUROSTIMULATOR STAGE ONE OAB (overactive bladder) Urge incontinence 05/02/2024 10:40 AM SIDE DOOR MAN INSERTION SACRAL NEUROSTIMULATOR STAGE TWO OAB (overactive bladder) Urge incontinence 05/02/2024 10:40 AM SIDE DOOR MAN documented as of this encounter Visit Diagnoses Not on filedocumented in this encounter Additional Health Concerns Infection Onset Date Last Indicated Resolved Time MRSA Comment:Beronica 12-29-14, 01/06/16 12/30/2014 12/30/2014 documented as of this encounter Care Teams Hot Mill Operator Relationship Specialty Start Date End Date Nikita Gamble MD [address] [place] [address] PCP - General Family Practice 06/23/23 documented as of this encounter
--- OUTSIDE RECORDS SUMMARY | 2024-01-25 12:33 | XMS_ITS | Encounter Summary ---
Author Organization [facility] Address [address] [place] [address] Care Team Providers Care Director Of Claims Name Role Phone Nikita Gamble MD Primary Care Provider Reason for Visit * Auth/Cert (Routine) Specialty Diagnoses / Procedures Referred By Contac t Referred To Contact Diagnoses Postmenopausal bleeding . Procedures HYSTEROSCOPY WITH MYOSURE, polypectomy Referral ID Status Reason Start Date Expiration Date Visits Re quested Visits Authorized [id number] 1 1 Encounter Details Date Type Department Care Team (Late st Contact Info) Description 12/14/2023 10:00 AM CDT - 12/14/2023 11:15 AM CDT Surgery Operating Room [address] [place] [address] [phone] Carol Phillips MD [address] [place] [address] HYSTEROSCOPY WITH TRUCLEAR, polypectomy, PAP SMEAR AND [...] is after hours call the Careline at [phone]. [facility] Surgery: Please contact your clinic during [...] Sig Dispensed Refills Start Date End Date amoxicillin (AMOXIL) 500 MG capsule Take 4 Capsules (2,000 mg) by mouth every 24 hours as needed. aspirin 81 MG chewable tabletIndications:Hea rt protection Take 1 Tab by mouth daily. Indications: Heart protection 100 Tab 3 04/30/2015 Blood Glucose Monitoring Suppl (Doximity CONTOUR MONITOR) W/DEVICE KIT kit As instructed [...] diabetes mellitus with diabetic neuropathy, unspecified ([facility]) Use for continuous glucose monitoring. Change sensor [...] Insulin-Dependent Diabetes 15 mL 11 06/11/2015 lancets (Doximity MICROLET LANCETS) Use as directed. Pharmacy dispense [...] by mouth two times a day. rizatriptan (MAXALT-SEARCHLIGHT OPERATOR) 10 MG disintegrating tablet Take 1 [...] (500 mg) by mouth daily as needed. Acetaminophen Extra Strength 500 MG Take 1 Tablet (500 mg) by mouth every 4 hours as needed for Pain for up to 30 days. 180 Tablet 12/14/2023 01/13/2024 documented as of this encounter Procedure Notes [...] st Contact Info) Description 02/20/2024 2:00 PM LADIES UNDERWEAR OPERATOR Appointment [facility] UroGynecology [address] [place] [address] Candice Coates MD [address] [place] [address] 02/24/2024 8:45 AM LADIES UNDERWEAR OPERATOR Appointment [facility] UroGynecology [address] [place] [address] Candice Coates MD [address] [place] [address] 29[address] 05/02/2024 10:40 AM LADIES UNDERWEAR OPERATOR Hospital Encounter [facility] Same Day Surgery Center [address] [place] [address] Candice Coates MD [address] [place] [address] 7[address] 05/02/2024 10:40 AM LADIES UNDERWEAR OPERATOR - 05/02/2024 12:15 PM LADIES UNDERWEAR OPERATOR Surgery [facility] Same Day Surgery [facility] [address] [place] [address] Candice Coates MD [address] [place] [address] 14586 Insertion of sacral neuromodulation lead 05/17/2024 10:45 AM LADIES UNDERWEAR OPERATOR Appointment [facility] UroGynecology [address] [place] [address] Candice Coates MD [address] [address] Scheduled Procedures Name Priority Associated Diagnoses Date/Ti me INSERTION SACRAL NEUROSTIMULATOR STAGE ONE OAB (overactive bladder) Urge incontinence 05/02/2024 10:40 AM LADIES UNDERWEAR OPERATOR INSERTION SACRAL NEUROSTIMULATOR STAGE TWO OAB (overactive bladder) Urge incontinence 05/02/2024 10:40 AM LADIES UNDERWEAR OPERATOR documented as of this encounter Procedures Procedure [...] AM CDT) Case Report Surgical Pathology ?Case: [id number] ? Authorizing Provider: ??Carol Phillips MD ?Collected: ? 12/14/2023 1104 ? Ordering Location: ? Operating Room ?Received: ?12/14/2023 1132 ? Pathologist: ? Joann Mckeon MD ? Specimens: ?? A) - Labia, left, Left superior labial biopsy ? B) - Vulva, Left vestibule ? C) - Uterus, Endometrial currettings ? 12/22/2023 1:37 PM [facility] FINAL DIAGNOSIS A. Skin, Labia, left [...] Clinical correlation is recommended. 12/22/2023 1:37 PM [facility] Clinical Information Postmenopausal bleeding 12/22/2023 1:37 PM [facility] Microscopic Description A. Microscopic examination including multiple deeper recut sections is performed. B/C. Microscopic examination is performed. 12/22/2023 1:37 PM [facility] Special Stains The stain controls have been reviewed and stain appropriately. 12/22/2023 1:37 PM [facility] Gross Description A: The specimen is [...] in 1 cassette. TK 12/22/2023 1:37 PM [facility] Embedded Images 12/22/2023 1:37 PM [facility] Tissue GENITAL LABIUM STRUCTURE / Unknown 12/14/2023 11:04 AM CDT 12/14/2023 11:32 AM CDT Tissue specimen (specimen) VULVAL STRUCTURE / Unknown 12/14/2023 11:09 AM CDT 12/14/2023 11:32 AM CDT Tissue specimen (specimen) UTERINE STRUCTURE / Unknown 12/14/2023 11:16 AM CDT 12/14/2023 11:32 AM CDT Carol Phillips MD LAB PATHOLOGY [address] [address], [facility] * HPV Genotyping PCR (Cervical/Endocervical ONLY) (12/14/2023 10:52 AM CDT) HPV High Risk Type 16 PCR Not Detected Not detected 12/29/2023 12:08 PM [facility] HPV High Risk Type 18 PCR Not Detected Not Detected 12/29/2023 12:08 PM [facility] HPV High Risk Other Than 16/18 Not Detected Not detected 12/29/2023 12:08 PM CDT [facility] Cervical Broom ENTIRE ENDOCERVIX / Unknown 12/14/2023 10:52 AM CDT 12/14/2023 10:57 AM CDT [facility] - 12/29/2023 12:08 PM CDT [facility] [...] MD LAB_1 Performing Organization Address City/State/[facility] [place] [address], [facility] * PAP Test (12/14/2023 10:52 AM CDT) Case Report Pap ? Case: [id number] ? Authorizing Provider: ??Carol Phillips MD ?Collected: ? 12/14/2023 1052 ? Ordering Location: ? Operating Room ?Received: ?12/14/2023 1155 ? First Screen: ?Laurita Browne, CT ? (ASCP) ? Specimen: ?Pap Test, Routine, Cervix/Endocervix ? 12/29/2023 12:08 PM [facility] Pap Specimen Adequacy Satisfactory for evaluation, endocervical/herrera sformation zone component present. 12/29/2023 12:08 PM [facility] Pap Interpretation (NILM) Negative for intraepithelial lesion or malignancy. 12/29/2023 12:08 PM [facility] Pap Disclaimer The Pap test is a screening test to aid in the detection of cervical and vaginal cancers and their precursor lesions. It is not a diagnostic procedure and should not be used as the sole means of detecting malignancy. Both false-positive and false-negative results may occur. 12/29/2023 12:08 PM [facility] Gross Description The specimen is received in SurePath fixative and properly labeled. 1 Pap-stained SurePath slide is prepared. 12/29/2023 12:08 PM [facility] Embedded Images 12:08 PM [facility] Other Specimen Type ENTIRE ENDOCERVIX / Unknown 12/14/2023 10:52 AM CDT 12/14/2023 11:55 AM CDT Comment:LMP: No LMP recorded . Patient is postmenopausal. Carol Phillips MD LAB PATHOLOGY Performing Organization Address City/State/[facility] Co de Phone Number [address] [address], [facility] * Glucose, Whole Blood POCT (12/14/2023 9:03 AM CDT) Glucose, Whole Blood 174 70 - 180 mg/dL 12/14/2023 9:05 AM CDT [facility] Performing Location [facility] 12/14/2023 9:03 AM CDT 12/14/2023 9:05 AM CDT Carol Phillips MD LAB_1 [facility] [address] [place] [address], [facility] documented in this encounter Visit Diagnoses Diagnosis Postmenopausal bleeding- Primary Postmenopausal bleeding Postmenopausal bleeding OAB (overactive bladder) Hypertonicity of bladder Urge incontinence documented in this encounter Admitting Diagnoses Diagnosis [...] (SUBLIMAZE) injection 25-50 mcg 25-50 mcg, Intravenous, [id number], Pain, Starting on Tue12/14/23 at 1105, Until [...] (NORMODYNE) injection 5 mg 5 mg, Intravenous, [id number], Blood Pressure >, Hypertension SBP greater than [...] (SUBLIMAZE) injection 25-50 mcg 25-50 mcg, Intravenous, [id number], Pain, Starting on Tue12/14/23 at 1105, Until [...] (NORMODYNE) injection 5 mg 5 mg, Intravenous, [id number], Blood Pressure >, Hypertension SBP greater than [...] 1124, Intra-op 1124 (Given - Provid er: Caorl Phillips MD - Comment: Applied to labia [...] of this encounter Care Teams Director Of Claims Relationship Specialty Start Date End Date Nikita Gamble MD [address] [place] [address] PCP - General Family Practice 06/23/23 documented as of this encounter
--- OUTSIDE RECORDS SUMMARY | 2024-01-25 12:33 | XMS_ITS | Encounter Summary ---
Author Organization [facility] Address [address] [place] [address] Care Team Providers Care Heat Treating Operator Name Role Phone Nikita Gamble MD Primary Care Provider Encounter Details Date Type Department Care Team (Late st Contact Info) Description 11/22/2023 3:40 PM CDT Telemedicine [place] [facility]ne[facility] [address] [facility]. [place], [place] [phone] Carol Phillips MD [address] [place] [address] Endometrial polyp (Primary Dx); PMB (postmenopausal bleeding); [...] Phillips MD - 11/22/2023 3:40 PM CDT CASING RUNNER Visit Video converted to phone due to [...] Helped but didn't make a big difference. [place] a tearing sensation every time she was [...] clinic: [facility] Clinical indications: Postmenopausal bleeding Wire Drawing Machine Tender(s) initials: The pelvic organs are imaged using: [...] up with referring provider. Recommend consultation with windshield technician for hysteroscopy. Patient requested expedited surgery scheduling therefore surgical orders were placed. OB Hx: OB History Para Term AB Living 0 0 0 0 0 0 SAB IAB Ectopic Multiple Live Births 0 0 0 0 0 HOME HEALTH NURSE Hx: No LMP recorded. Patient is postmenopausal. [...] 100 Tab 3 Blood Glucose Monitoring Suppl (PRNMS INVESTMENTS CONTOUR MONITOR) W/DEVICE KIT kit As instructed 1 Each 0 blood glucose (PRNMS INVESTMENTS CONTOUR TEST) strip 4 x daily. Pharmacy [...] (10 mg) by mouth every 8 hours. Talenta G7 Sensor continuous blood glucose device Use [...] by mouth two times a day. rizatriptan (MAXALT-DRAG SEINER) 10 MG disintegrating tablet Take 1 Tablet [...] to have preop close to home in [place]. Consent to be signed day of surgery. [...] st Contact Info) Description 02/20/2024 2:00 PM WAFER CUTTER Appointment [facility] UroGynecology [address] [place] [address] Candice Coates MD [address] [place] [address] 02/24/2024 8:45 AM WAFER CUTTER Appointment [facility] UroGynecology [address] [place] [address] Candice Coates MD [address] [place] [address] 05/02/2024 10:40 AM WAFER CUTTER Hospital Encounter [facility] [address] [place] [address] Candice Coates MD [address] [place] [address] 05/02/2024 10:40 AM WAFER CUTTER - 05/02/2024 12:15 PM WAFER CUTTER [facility] [address] [place] [address] Candice Coates MD [address] [place] [address] Insertion of sacral neuromodulation lead 05/17/2024 10:45 AM WAFER CUTTER [facility] [address] [place] [address] Candice Coates MD [address] [place] [address] [phone] Scheduled Procedures Name Priority Associated Diagnoses Date/Ti me INSERTION SACRAL NEUROSTIMULATOR STAGE ONE OAB (overactive bladder) Urge incontinence 05/02/2024 10:40 AM WAFER CUTTER INSERTION SACRAL NEUROSTIMULATOR STAGE TWO OAB (overactive bladder) Urge incontinence 05/02/2024 10:40 AM WAFER CUTTER documented as of this encounter Visit Diagnoses Diagnosis Endometrial polyp- Primary Polyp of corpus uteri PMB (postmenopausal bleeding) Postmenopausal bleeding Genitourinary syndrome of menopause OAB (overactive bladder) Hypertonicity of bladder Urge incontinence documented in this encounter Additional Health Concerns Infection Onset Date Last Indicated Resolved Time MRSA Comment:Beronica 10-4-15, 01/06/16 12/30/2014 12/30/2014 documented as of this encounter Care Teams Heat Treating Operator Relationship Specialty Start Date End Date Nikita Gamble MD [address] [place] [address] PCP - General Family Practice 06/23/23 documented as of this encounter
--- OUTSIDE RECORDS SUMMARY | 2024-01-25 12:33 | XMS_ITS | Encounter Summary ---
Author Organization [facility] Address [address] [place] [address] Care Team Providers Care Product Craftsman Name Role Phone Nikita Gamble MD Primary Care Provider [phone] Reason for Visit * Auth/Cert (Routine) Specialty Diagnoses / Procedures Referred By Contac t Referred To Contact Diagnoses Postmenopausal bleeding . Procedures HYSTEROSCOPY WITH MYOSURE, polypectomy Referral ID Status Reason Start Date Expiration Date Visits Re quested Visits Authorized [id number] 1 1 Encounter Details Date Type Department Care Team (Late st Contact Info) Description 12/14/2023 8:02 AM CDT - 12/14/2023 12:46 PM CDT Hospital Encounter [facility] Operating Room [address] [place] [address] Carol Phillips MD [address] [place] [address] Postmenopausal bleeding Discharge Disposition: Home Social History [...] is after hours call the Careline at [phone]. [facility] Surgery: Please contact your clinic during [...] Tab 3 04/30/2015 Blood Glucose Monitoring Suppl (Newdea CONTOUR MONITOR) W/DEVICE KIT kit As instructed [...] mg) by mouth every 8 hours. 12/07/2022 Synthacecom G7 Sensor continuous blood glucose deviceIndications:Typ e 1 diabetes mellitus with diabetic neuropathy, unspecified ([facility]) Use for continuous glucose monitoring. Change [...] Insulin-Dependent Diabetes 15 mL 11 06/11/2015 lancets (Newdea MICROLET LANCETS) Use as directed. Pharmacy dispense [...] by mouth two times a day. rizatriptan (MAXALT-LEARNING SUPPORT SERVICES DIRECTOR) 10 MG disintegrating tablet Take 1 Tablet [...] Sloan RN - 12/14/2023 11:[address] [facility] Progress Note Patient Name: Marnie Duvall Date of : 1965 Fluid deficit 570cc post hysteroscopy per Dr. Phillips. Pian Sloan, RN 12/14/2023 at 11:32 AM documented in this encounter Plan of Treatment Upcoming Encounters Date Type Department Care Team (Late st Contact Info) Description 02/20/2024 2:00 PM BOILER OPERATOR HELPER Appointment [facility] UroGynecology [address] [place] [address] Candice Coates MD [address] [place] [address] 02/24/2024 8:45 AM BOILER OPERATOR HELPER Appointment [facility] UroGynecology [address] [place] [address] Candice Coates MD [address] [place] [address] 05/02/2024 10:40 AM BOILER OPERATOR HELPER Hospital Encounter [facility] [address] [place] [address] Candice Coates MD [address] [place] [address] 104[address] 05/02/2024 10:40 AM BOILER OPERATOR HELPER - 05/02/2024 12:15 PM BOILER OPERATOR HELPER Surgery [facility] [address] [place] [address] Canidce Coates MD [address] [place] [address] Insertion of sacral neuromodulation lead 05/17/2024 10:45 AM BOILER OPERATOR HELPER Appointment [facility] UroGynecology [address] [place] [address] Candice Coates MD 2635 [facility] [address] [place] [address] Scheduled Procedures Name Priority Associated Diagnoses Date/Ti me INSERTION SACRAL NEUROSTIMULATOR STAGE ONE OAB (overactive bladder) Urge incontinence 05/02/2024 10:40 AM BOILER OPERATOR HELPER INSERTION SACRAL NEUROSTIMULATOR STAGE TWO OAB (overactive bladder) Urge incontinence 05/02/2024 10:40 AM BOILER OPERATOR HELPER documented as of this encounter Procedures Procedure [...] AM CDT) Case Report Surgical Pathology ?Case: [id number] ? Authorizing Provider: ??Carol Phillips MD ?Collected: ? 12/14/2023 1104 ? Ordering Location: ? Operating Room ?Received: ?12/14/2023 1132 ? Pathologist: ? Joann Mckeon MD ? Specimens: ?? A) - Labia, left, Left superior labial biopsy ? B) - Vulva, Left vestibule ? C) - Uterus, Endometrial currettings ? 12/22/2023 1:37 PM [facility] FINAL DIAGNOSIS A. Skin, Labia, left [...] Clinical correlation is recommended. 12/22/2023 1:37 PM [facility] Clinical Information Postmenopausal bleeding 12/22/2023 1:37 PM [facility] Microscopic Description A. Microscopic examination including multiple deeper recut sections is performed. B/C. Microscopic examination is performed. 12/22/2023 1:37 PM [facility] Special Stains The stain controls have been reviewed and stain appropriately. 12/22/2023 1:37 PM [facility] Gross Description A: The specimen is [...] in 1 cassette. TK 12/22/2023 1:37 PM [facility] Embedded Images 12/22/2023 1:37 PM [facility] Tissue GENITAL LABIUM STRUCTURE / Unknown 12/14/2023 11:04 AM CDT 12/14/2023 11:32 AM CDT Tissue specimen (specimen) VULVAL STRUCTURE / Unknown 12/14/2023 11:09 AM CDT 12/14/2023 11:32 AM CDT Tissue specimen (specimen) UTERINE STRUCTURE / Unknown 12/14/2023 11:16 AM CDT 12/14/2023 11:32 AM CDT Carol Phillips MD LAB PATHOLOGY Performing Organization Address City/State/[facility] [place] [address], [facility] * HPV Genotyping PCR (Cervical/Endocervical ONLY) (12/14/2023 10:52 AM CDT) HPV High Risk Type 16 PCR Not Detected Not detected 12/29/2023 12:08 PM [facility] HPV High Risk Type 18 PCR Not Detected Not Detected 12/29/2023 12:08 PM [facility] HPV High Risk Other Than 16/18 Not Detected Not detected 12/29/2023 12:[address] [facility] Cervical Broom ENTIRE ENDOCERVIX / Unknown 12/14/2023 10:52 AM CDT 12/14/2023 10:57 AM CDT [facility] - 12/29/2023 12:08 PM CDT [facility] [...] 66, and 68). Carol Phillips MD LAB_[address] * PAP Test (12/14/2023 10:52 AM CDT) Case Report Pap ? Case: [id number] ? Authorizing Provider: ??Carol Phillips MD ?Collected: ? 12/14/2023 1052 ? Ordering Location: ? Operating Room ?Received: ?12/14/2023 1155 ? First Screen: ?Laurita Browne, CT ? (ASCP) ? Specimen: ?Pap Test, Routine, Cervix/Endocervix ? 12/29/2023 12:08 PM [facility] Pap Specimen Adequacy Satisfactory for evaluation, endocervical/herrera sformation zone component present. 12/29/2023 12:08 PM [facility] Pap Interpretation (NILM) Negative for intraepithelial lesion or malignancy. 12/29/2023 12:08 PM [facility] Pap Disclaimer The Pap test is a screening test to aid in the detection of cervical and vaginal cancers and their precursor lesions. It is not a diagnostic procedure and should not be used as the sole means of detecting malignancy. Both false-positive and false-negative results may occur. 12/29/2023 12:08 PM [facility] Gross Description The specimen is received in SurePath fixative and properly labeled. 1 Pap-stained SurePath slide is prepared. 12/29/2023 12:08 PM [facility] Embedded Images 12:08 PM [facility] Other Specimen Type ENTIRE ENDOCERVIX / Unknown 12/14/2023 10:52 AM CDT 12/14/2023 11:55 AM CDT Comment:LMP: No LMP recorded . Patient is postmenopausal. Carol Phillips MD LAB PATHOLOGY Performing Organization Address City/State/[facility] de Phone Number [address] [address], [facility] * Glucose, Whole Blood POCT (12/14/2023 9:03 AM CDT) Glucose, Whole Blood 174 70 - 180 mg/dL 12/14/2023 9:[address] [facility] Performing Location [facility] 12/14/2023 9:[address] [facility] Blood 12/14/2023 9:03 AM CDT 12/14/2023 9:05 AM CDT Carol Phillips MD LAB_[address] [address], [facility] documented in this encounter Visit Diagnoses Diagnosis Postmenopausal bleeding- Primary Postmenopausal bleeding OAB (overactive bladder) Hypertonicity of [...] (SUBLIMAZE) injection 25-50 mcg 25-50 mcg, Intravenous, [id number], Pain, Starting on Tue12/14/23 at 1105, Until [...] (NORMODYNE) injection 5 mg 5 mg, Intravenous, [id number], Blood Pressure >, Hypertension SBP greater than [...] (SUBLIMAZE) injection 25-50 mcg 25-50 mcg, Intravenous, [id number], Pain, Starting on Tue12/14/23 at 1105, Until [...] (NORMODYNE) injection 5 mg 5 mg, Intravenous, [id number], Blood Pressure >, Hypertension SBP greater than [...] documented as of this encounter Care Teams Product Craftsman Relationship Specialty Start Date End Date Nikita Gamble MD [address] [place] [address] PCP - General Family Practice 06/23/23 documented as of this encounter
--- OUTSIDE RECORDS SUMMARY | 2024-01-25 12:33 | XMS_ITS | Encounter Summary ---
Author Organization [facility] Address [address] [place] [address] Care Team Providers Care Greensman Name Role Phone Nikita Gamble MD Primary Care Provider Reason for Referral * Procedure/Equipment (Routine) - Incomplete Specialty Diagnoses / Procedures Referred By Contac t Referred To Contact Diagnoses Postmenopausal bleeding Procedures Case Request OR - Gynecologic Surg: HYSTEROSCOPY WITH MYOSURE, polypectomy Carol Phillips MD [address] [place] [address] Referral ID Status Reason Start Date Expiration Date V isits Requested Visits Authorized [id number] Incomplete 10/17/2023 01/15/2025 1 1 Reason for Visit * Procedure/Equipment (Routine) - Incomplete Specialty Diagnoses / Procedures Referred By Contac t Referred To Contact Diagnoses Postmenopausal bleeding Procedures OBGYN Pelvic/Manager Flight [place] [address] [place] [address] Referral ID Status Reason Start Date Expiration Date V isits Requested Visits Authorized [id number] Incomplete 10/17/2023 01/15/2025 1 1 Encounter Details Date Type Department Care Team ([facility] Contact Info) Description 10/17/2023 1:00 PM CDT Ancillary Procedure [facility] OB [facility]ound [address] [place] [address] Candice Coates MD [address] [place] [address] Postmenopausal bleeding (Primary Dx) Social History Tobacco [...] st Contact Info) Description 02/20/2024 2:00 PM INSIDE B2B SALES Appointment [facility] UroGynecology [address] [place] [address] Candice Coates MD [address] [place] [address] 02/24/2024 8:45 AM INSIDE B2B SALES Appointment [facility] UroGy[facility] [address] [place] [address] Candice Coates MD [address] [place] [address] 05/02/2024 10:40 AM INSIDE B2B SALES Hospital Encounter [facility] [address] [place] [address] Candice Coates MD [address] [place] [address] 05/02/2024 10:40 AM INSIDE B2B SALES - 05/02/2024 12:15 PM INSIDE B2B SALES Surgery [facility] [address] [place] [address] Candice Coates MD [address] [place] [address] Insertion of sacral neuromodulation lead 05/17/2024 10:45 AM INSIDE B2B SALES Appointment [facility] UroGynecology [address] [place] [address] Candice Coates MD [address] [address] Scheduled Procedures Name Priority Associated Diagnoses Date/Ti me INSERTION SACRAL NEUROSTIMULATOR STAGE ONE OAB (overactive bladder) Urge incontinence 05/02/2024 10:40 AM INSIDE B2B SALES INSERTION SACRAL NEUROSTIMULATOR STAGE TWO OAB (overactive bladder) Urge incontinence 05/02/2024 10:40 AM INSIDE B2B SALES documented as of this encounter Procedures Procedure Name Priority Date/Time Associated Diagnosis Comments OBGYN PELVIC/OCCUPATIONAL THERAPY ASSISTANT ULTRASOUND Routine 10/17/2023 1:39 PM CDT Postmenopausal bleeding documented in this encounter Results * (ABNORMAL) OBGYN Pelvic/Manager Flight Operations Ultrasound (10/17/2023 1:39 PM CDT) Uterus AP Diameter (Height) 2.60 cm EXTERNAL RESULTS Uterus Longitudinal Diameter (Length) 6.40 cm EXTERNAL RESULTS Uterus Transverse Diameter (Width) 3.50 cm EXTERNAL RESULTS Uterus Volume 30.49 ml CRITICAL CARE EDUCATOR AL RESULTS Endometrium Thickness 6.10 mm EXTERNAL [...] from the original result was not included. OCCUPATIONAL THERAPY ASSISTANT Ultrasound Exam performed on: ??10/17/2023 Referring provider: Candice Coates MD Referring clinic: [facility] Clinical indications: Postmenopausal bleeding Edi Programmer(s) initials: The pelvic organs are imaged using: [...] up with referring provider. ??Recommend consultation with lens gauger for hysteroscopy. ??Patient requested expedited surgery scheduling therefore surgical orders were placed. ?? Carol Phillips MD Candice Coates MD [facility] documented in this encounter Visit Diagnoses Diagnosis Postmenopausal bleeding- Primary OAB (overactive bladder) Hypertonicity of bladder Urge incontinence documented in this encounter Additional Health Concerns Infection Onset Date Last Indicated Resolved Time MRSA Comment:Beronica 15, 01/06/16 12/30/201412/30/2014 documented as of this encounter Care Teams Greensman Relationship Specialty Start Date End Date Nikita Gamble MD [address] [place] [address] PCP - General Family Practice 06/23/23 documented as of this encounter
--- OUTSIDE RECORDS SUMMARY | 2024-01-25 12:34 | XMS_ITS | Encounter Summary ---
Author Organization [facility] Address [address] [place] [address]. [place] [address] Care Team Providers Care Work Study Student Name Role Phone StuartJocelyn desouza Bran YANEZ Unavailable [phone] Nikita Gamble MD Primary Care Provider Naveen Casiano MD Unavailable [phone] Mikki Blevins MD Unavailable [phone] Mikki Blevins MD Unavailable [phone] Mindi Llanes PA-C Unavailable [phone] Reason for Visit * Reason Comments Medication Refill Encounter Details Date Type Department Care Team (Late st Contact Info) Description 12/20/2021 Refill [facility] [address] [place] [phone] Mindi lLanes PA-C [address] [place] [address] [phone] Medication Refill Social History Tobacco Use Types Packs/Day Years Used Date Smoking Tobacco: Never Smokeless Tobacco: Never Alcohol Use Standard Drinks/Week Comments Yes 0 (1 standard drink = 0.6 oz pur e alcohol) rare PHQ-2 Answer Date Recorded PHQ-2 Score 0 02/26/2020 Comments No Sex and Gender Information Value Date Recorded Sex Assigned at Female 03/04/2020 12:33 PM MEDICAL ASSISTANT Legal Sex Female 5:14 AM MEDICAL ASSISTANT Gender Identity Female 03/04/2020 12:33 PM MEDICAL ASSISTANT Sexual Orientation Straight 03/04/2020 12 :33 PM MEDICAL ASSISTANT documented as of this encounter Miscellaneous [...] Score: 0 02/26/20 20 1:30 PM MEDICAL ASSISTANT documented as of this encounter Care Teams Work Study Student Relationship Specialty Start Date End Date Nikita Gamble MD [facility] [place] [address] PCP - General Family Medicine 05/26/[address] [place] [address] [place] [address] Hr Manager Dietitian, Registered 05/25/18 [place] [address] [place] [address] Assigned PCP 11/16/20 12/18/23 Mikki Blevins MD [address] [place] [address] Endocrinology, Diabetes, and Metabolism 05/07/21 [place] [address] Assigned Endocrinology Provider 08/02/21 01/28/23 Mindi Llanes PA-C [address] [place] [address] Assigned Surgical Provider 09/26/21 08/17/23 documented as of this encounter
--- OUTSIDE RECORDS SUMMARY | 2024-01-25 12:34 | XMS_ITS | Encounter Summary ---
Author Organization [facility] Address [address] [place] [address]. [place] [address] Care Team Providers Care Sample Collector Name Role Phone Stuart Jocelyn Bran YANEZ Unavailable [phone] Nikita Gamble MD Primary Care Provider Naveen Casiano MD Unavailable [phone] Mikki Blevins MD Unavailable [phone] Mikki Blevins MD Unavailable [phone] Mindi Llanes PA-C Unavailable [phone] Encounter Details Date Type Department Care Team (Late st Contact Info) Description 09/21/2021 MyC Medical Advice [facility] Social History Tobacco Use Types Packs/Day Years Used Date Smoking Tobacco: Never Smokeless Tobacco: Never Alcohol Use Standard Drinks/Week Comments Yes 0 (1 standard drink = 0.6 oz pur e alcohol) rare PHQ-2 Answer Date Recorded PHQ-2 Score 0 02/26/2020 Comments No Sex and Gender Information Value Date Recorded Sex Assigned at Female 03/04/2020 12:33 PM PYROGLAZER Legal Sex Female 5:14 AM PYROGLAZER Gender Identity Female 03/04/2020 12:33 PM PYROGLAZER Sexual Orientation Straight 03/04/2020 12 :33 PM PYROGLAZER documented as of this encounter Plan of Treatment Not on file documented as of this encounter Visit Diagnoses Not on filedocumented in this encounter Additional Health Concerns Assessment Noted Time PHQ-9 Depression Total Score: 0 02/26/20 20 1:30 PM PYROGLAZER documented as of this encounter Care Teams Sample Collector Relationship Specialty Start Date End Date Nikita Gamble MD [facility] [address] [place] [address] PCP - General Family Medicine 05/26/20 Jocelyn Davidson, RENATA [address] [place] [address] Rouge Presser Dietitian, Registered 05/25/18 [place] [address] [place] [address] Assigned PCP 11/16/20 12/18/23 Mikki Blevins MD [address] [place] [address] Endocrinology, Diabetes, and Metabolism 05/07/21 [place] [address] Assigned Endocrinology Provider 08/02/21 01/28/23 Mindi Llanes PA-C [address] [facility] [address] [place] [address] Assigned Surgical Provider 09/26/21 08/17/23 documented as of this encounter
--- OUTSIDE RECORDS SUMMARY | 2024-01-25 12:34 | XMS_ITS | Encounter Summary ---
Author Organization [facility] Address [address] [place] [address]. [place] [address] Care Team Providers Care Healthcare Representative Name Role Phone Stuart Jocelyn Bran YANEZ Unavailable [phone] Nikita Gamble MD Primary Care Provider Naveen Casiano MD Unavailable [phone] Mikki Blevins MD Unavailable [phone] Mikki Blevins MD Unavailable [phone] Mindi Llanes PA-C Unavailable [phone] Encounter Details Date Type Department Care Team (Late st Contact Info) Description 10/20/2021 MyC Medical Advice [facility] Specialty [address] [address] Diandra Giordano, MAURICE Social History Tobacco Use Types Packs/Day Years Used Date Smoking Tobacco: Never Smokeless Tobacco: Never Alcohol Use Standard Drinks/Week Comments Yes 0 (1 standard drink = 0.6 oz pur e alcohol) rare PHQ-2 Answer Date Recorded PHQ-2 Score 0 02/26/2020 Comments No Sex and Gender Information Value Date Recorded Sex Assigned at Female 03/04/2020 12:33 PM LIME BURNER Legal Sex Female 5:14 AM LIME BURNER Gender Identity Female 03/04/2020 12:33 PM LIME BURNER Sexual Orientation Straight 03/04/2020 12 :33 PM LIME BURNER documented as of this encounter Plan of Treatment Not on file documented as of this encounter Visit Diagnoses Not on filedocumented in this encounter Additional Health Concerns Assessment Noted Time PHQ-9 Depression Total Score: 0 02/26/20 20 1:30 PM LIME BURNER documented as of this encounter Care Teams Healthcare Representative Relationship Specialty Start Date End Date Nikita Gamble MD [place] [address] [place] [address] PCP - General Family Medicine 05/26/[address] [place] [address] Jumpbasting Facing Baster Dietitian, Registered 05/25/18 [place] [address] [place] [address] Assigned PCP 11/16/20 12/18/23 Mikki Blevins MD [address] [place] [address] Endocrinology, Diabetes, and Metabolism 05/07/21 [place] [address] Assigned Endocrinology Provider 08/02/21 01/28/23 Mindi Llanes PA-C [address] [facility] [place] [address] [place] [address] Assigned Surgical Provider 09/26/21 08/17/23 documented as of this encounter
--- OUTSIDE RECORDS SUMMARY | 2024-01-25 12:34 | XMS_ITS | Encounter Summary ---
Author Organization [facility] Address [address] [place] [address]. [place] [address] Care Team Providers Care Employee Health Nurse Name Role Phone Stuart Jocelyn Bran YANEZ Unavailable [phone] Nikita Gamble MD Primary Care Provider Naveen Casiano MD Unavailable [phone] Mikki Blevins MD Unavailable [phone] Mikki Blevins MD Unavailable [phone] Mindi Llanes PA-C Unavailable [phone] Encounter Details Date Type Department Care Team (Late st Contact Info) Description 09/18/2021 MyC Medical Advice [facility] [address] [place] [address] Liberty Gilliam MA Social History Tobacco Use Types Packs/Day Years Used Date Smoking Tobacco: Never Smokeless Tobacco: Never Alcohol Use Standard Drinks/Week Comments Yes 0 (1 standard drink = 0.6 oz pur e alcohol) rare PHQ-2 Answer Date Recorded PHQ-2 Score 0 02/26/2020 Comments No Sex and Gender Information Value Date Recorded Sex Assigned at Female 03/04/2020 12:33 PM CATERPILLAR DRIVER Legal Sex Female 5:14 AM CATERPILLAR DRIVER Gender Identity Female 03/04/2020 12:33 PM CATERPILLAR DRIVER Sexual Orientation Straight 03/04/2020 12 :33 PM CATERPILLAR DRIVER documented as of this encounter Plan of Treatment Not on file documented as of this encounter Visit Diagnoses Not on filedocumented in this encounter Additional Health Concerns Assessment Noted Time PHQ-9 Depression Total Score: 0 02/26/20 20 1:30 PM CATERPILLAR DRIVER documented as of this encounter Care Teams Employee Health Nurse Relationship Specialty Start Date End Date Nikita Gamble MD [place] [address] [place] [address] PCP - General Family Medicine 05/26/[address] [place] [address] [place] [address] Control Manager Dietitian, Registered 05/25/18 [place] [address] [place] [address] Assigned PCP 11/16/20 12/18/23 Mikki Blevins MD [address] [place] [address] Endocrinology, Diabetes, and Metabolism 05/07/21 Mikki Blevins [place] [address] Assigned Endocrinology Provider 08/02/21 01/28/23 Mindi Llanes PA-C [address] [facility] [address] [address] [place] [address] Assigned Surgical Provider 09/26/21 08/17/23 documented as of this encounter
--- OUTSIDE RECORDS SUMMARY | 2024-01-25 12:34 | XMS_ITS | Encounter Summary ---
Author Organization [facility] Address [address] [place] [address]. [place] [address] Care Team Providers Care Claim Professional Name Role Phone Jocelyn Davidson RENATA Unavailable [phone] Nikita Gamble MD Primary Care Provider Naveen Casiano MD Unavailable [phone] Harlan Lin MD Unavailable Milagro vailable Mikki Blevins MD Unavailable [phone] Mikki Blevins MD Unavailable [phone] Mindi Llanes PA-C Unavailable [phone] Reason for Visit * Reason Onset Date Comments Diabetes Education 12/05/2020 Encounter Details Date Type Department Care Team (Late st Contact Info) Description 12/05/2020 [facility] [place] [facility] Nurse Advisors [facility] [place] [address] Hernando Gray Diabetes Education Social History Tobacco Use Types Packs/Day Years Used Date Smoking Tobacco: Never Smokeless Tobacco: Never Alcohol Use Standard Drinks/Week Comments Yes 0 (1 standard drink = 0.6 oz pur e alcohol) rare PHQ-2 Answer Date Recorded PHQ-2 Score 0 02/26/2020 Comments No Sex and Gender Information Value Date Recorded Sex Assigned at Female 03/04/2020 12:33 PM PROGRAM OFFICER Legal Sex Female 5:14 AM PROGRAM OFFICER Gender Identity Female 03/04/2020 12:33 PM PROGRAM OFFICER Sexual Orientation Straight 03/04/2020 12 :33 PM PROGRAM OFFICER COVID-19 Exposure Response Date Recorded In [...] back at a better time. Hernando Gray [facility] Scheduling documented in this encounter Plan of Treatment Not on file documented as of this encounter Visit Diagnoses Not on filedocumented in this encounter Additional Health Concerns Assessment Noted Time PHQ-9 Depression Total Score: 0 02/26/20 20 1:30 PM PROGRAM OFFICER documented as of this encounter Care Teams Claim Professional Relationship Specialty Start Date End Date Nikita Gamble MD [address] [place], [place] [id number] PCP - General Family Medicine 05/26/[address] [place] [address] Verifier Operator Dietitian, Registered 05/25/18 [place] [address] [place] [address] Assigned PCP 11/16/20 12/18/23 Harlan Lin MD NO INFO AVAILABLE Assigned Endocrinology Provider 12/07/20 08/01/21 Mikki Blevins MD [address] [place] [address] Endocrinology, Diabetes, and Metabolism 05/07/21 [place] [address] Assigned Endocrinology Provider 08/02/21 01/28/23 Mindi Llanes PA-C [address] [place] [address] Assigned Surgical Provider 09/26/21 08/17/23 documented as of this encounter
--- OUTSIDE RECORDS SUMMARY | 2024-01-25 12:34 | XMS_ITS | Encounter Summary ---
Author Organization [facility] Address [address] [place] [address]. [place] [address] Care Team Providers Care Model Engine Mechanic Name Role Phone Antonio Annette Monroe APRN REPLENISHMENT SPECIALIST Unavailable Goran Lloyd MD Primary Care Provider Jocelyn Davidson RD Unavailable [phone] Tamar Murphy APRN REPLENISHMENT SPECIALIST Unavailable [phone] Nikita Gamble MD Primary Care Provider Naveen Casiano MD Unavailable [phone] Harlan Lin MD Unavailable Milagro vailable Mikki Blevins MD Unavailable [phone] Mikki Blevins MD Unavailable [phone] Mindi Llanes PA-C Unavailable [phone] Encounter Details Date Type Department Care Team (Late st Contact Info) Description 2020 [facility] [address] [address] Tamar Murphy APRN REPLENISHMENT SPECIALIST [address] [place] [address] Social History Tobacco Use Types Packs/Day Years Used Date Smoking Tobacco: Never Smokeless Tobacco: Never Alcohol Use Standard Drinks/Week Comments Yes 0 (1 standard drink = 0.6 oz pur e alcohol) rare PHQ-2 Answer Date Recorded PHQ-2 Score 0 02/26/2020 Comments No Sex and Gender Information Value Date Recorded Sex Assigned at Female 03/04/2020 12:33 PM CLINICAL TECHNOLOGIST Legal Sex Female 5:14 AM CLINICAL TECHNOLOGIST Gender Identity Female 03/04/2020 12:33 PM CLINICAL TECHNOLOGIST Sexual Orientation Straight 03/04/2020 12 :33 PM CLINICAL TECHNOLOGIST COVID-19 Exposure Response Date Recorded In the last month, have you been in contact with someone who was confirmed or suspected to have Coronavirus / COVID-19? No / Unsure 02/03/2020 12:21 PM CLINICAL TECHNOLOGIST documented as of this encounter Plan of Treatment Not on file documented as of this encounter Visit Diagnoses Not on filedocumented in this encounter Additional Health Concerns Assessment Noted Time PHQ-9 Depression Total Score: 0 02/26/20 20 1:30 PM CLINICAL TECHNOLOGIST documented as of this encounter Care Teams Model Engine Mechanic Relationship Specialty [place] [address] [place] [address] PCP - General Family Practice 12/29/17 05/21/20 Nikita Gamble MD [address] [place] [phone] PCP - General Family Medicine 05/26/20 Annette Alvarez APRN REPLENISHMENT SPECIALIST [address] [place] [address] Nurse Practitioner Clinical Nurse Specialist 03/22/17 10/21/[address] [place] [address] Load Blocker Dietitian, Registered 05/25/18 Tamar Murphy APRN REPLENISHMENT SPECIALIST [address] [place] [address] Assigned PCP 02/08/20 11/15/20 [place] [address] [place] [address] Assigned PCP 11/16/20 12/18/23 Harlan Lin MD NO INFO AVAILABLE Assigned Endocrinology Provider 12/07/20 08/01/21 Mikki Blevins MD [address] [place] [address] Endocrinology, Diabetes, and Metabolism 05/07/21 Mikki Blevins [place] [address] Assigned Endocrinology Provider 08/02/21 01/28/23 Mindi Llanes PA-C [address] [place] [address] Assigned Surgical Provider 09/26/21 08/17/23 documented as of this encounter
--- OUTSIDE RECORDS SUMMARY | 2024-01-25 12:34 | XMS_ITS | Encounter Summary ---
Author Organization [facility] Address [address] [place] [address]. [place] [address] Care Team Providers Care Dust Collector Attendant Name Role Phone StuartJocelyn desouza Bran YANEZ Unavailable [phone] Nikita Gamble MD Primary Care Provider Naveen Casiano MD Unavailable [phone] Mikki Blevins MD Unavailable [phone] Mikki Blevins MD Unavailable [phone] Mindi Llanes PA-C Unavailable [phone] Encounter Details Date Type Department Care Team (Late st Contact Info) Description 02/11/2022 [facility] Medical Advice [facility] [address] [place] [address] Alix Marquez, VASQUEZ [facility] [address] [place] [address] [address] [place] [address] Social History Tobacco Use Types Packs/Day Years Used Date Smoking Tobacco: Never Smokeless Tobacco: Never Alcohol Use Standard Drinks/Week Comments Yes 0 (1 standard drink = 0.6 oz pur e alcohol) rare PHQ-2 Answer Date Recorded PHQ-2 Score 0 02/26/2020 Comments No Sex and Gender Information Value Date Recorded Sex Assigned at Female 03/04/2020 12:33 PM RATE CLERK PASSENGER Legal Sex Female 5:14 AM RATE CLERK PASSENGER Gender Identity Female 03/04/2020 12:33 PM RATE CLERK PASSENGER Sexual Orientation Straight 03/04/2020 12 :33 PM RATE CLERK PASSENGER documented as of this encounter Plan of Treatment Not on file documented as of this encounter Visit Diagnoses Not on filedocumented in this encounter Additional Health Concerns Assessment Noted Time PHQ-9 Depression Total Score: 0 02/26/20 20 1:30 PM RATE CLERK PASSENGER documented as of this encounter Care Teams Dust Collector Attendant Relationship Specialty Start Date End Date Nikita Gamble MD [facility] - [address] [place] [address] PCP - General Family Medicine 05/26/[address] [place] [address] [place] [address] Campus Manager Dietitian, Registered 05/25/18 [place] [address] [place] [address] Assigned PCP 11/16/20 12/18/23 Mikki Blevins MD 9 [place] [address] Endocrinology, Diabetes, and Metabolism 05/07/21 [place] [address] Assigned Endocrinology Provider 08/02/21 01/28/23 Mindi Llanes PA-C [address] [facility] [address] [place] [address] Assigned Surgical Provider 09/26/21 08/17/23 documented as of this encounter
--- OUTSIDE RECORDS SUMMARY | 2024-01-25 12:34 | XMS_ITS | Encounter Summary ---
Author Organization [facility] Address [address] [place] [address]. [place] [address] Care Team Providers Care Boiler Shop Mechanic Name Role Phone StuartJocelyn Bran YANEZ Unavailable [phone] Nikita Gamble MD Primary Care Provider [phone] Naveen Casiano MD Unavailable [phone] Mikki Blevins MD Unavailable [phone] Mikki Blevins MD Unavailable [phone] Mindi Llanes PA-C Unavailable [phone] Encounter Details Date Type Department Care Team (Late st Contact Info) Description 02/11/2022 My[facility] Medical Advice [facility] [address] [place] [address] Jammie Mohr, RN Social History Tobacco Use Types Packs/Day Years Used Date Smoking Tobacco: Never Smokeless Tobacco: Never Alcohol Use Standard Drinks/Week Comments Yes 0 (1 standard drink = 0.6 oz pur e alcohol) rare PHQ-2 Answer Date Recorded PHQ-2 Score 0 02/26/2020 Comments No Sex and Gender Information Value Date Recorded Sex Assigned at Female 03/04/2020 12:33 PM DYE MIXER Legal Sex Female 5:14 AM DYE MIXER Gender Identity Female 03/04/2020 12:33 PM DYE MIXER Sexual Orientation Straight 03/04/2020 12 :33 PM DYE MIXER documented as of this encounter Plan of Treatment Not on file documented as of this encounter Visit Diagnoses Not on filedocumented in this encounter Additional Health Concerns Assessment Noted Time PHQ-9 Depression Total Score: 0 02/26/20 20 1:30 PM DYE MIXER documented as of this encounter Care Teams Boiler Shop Mechanic Relationship Specialty Start Date End Date Nikita Gamble MD [place] [address] [place] [address] PCP - General Family Medicine 05/26/[address] [place] [address] Day Care Provider Dietitian, Registered 05/25/18 [place] [address] [place] [address] Assigned PCP 11/16/20 12/18/23 Mikki Blevins MD 9 [place] [address] Endocrinology, Diabetes, and Metabolism 05/07/21 Mikki Blevins [place] [address] Assigned Endocrinology Provider 08/02/21 01/28/23 Mindi Llanes PA-C [address] [facility] [place] [address] [place] [address] Assigned Surgical Provider 09/26/21 08/17/23 documented as of this encounter
--- OUTSIDE RECORDS SUMMARY | 2024-01-25 12:34 | XMS_ITS | Encounter Summary ---
Author Organization [facility] Address [address] [place] [address]. [place] [address] Care Team Providers Care Consultant Intern Name Role Phone StuartJocelyn desouza Bran YANEZ Unavailable [phone] Nikita Gamble MD Primary Care Provider Naveen Casiano MD Unavailable [phone] Mikki Blevins MD Unavailable [phone] Mikki Blevins MD Unavailable [phone] Mindi Llanes PA-C Unavailable [phone] Reason for Visit * Reason Onset Date Comments Medication Question 09/14/2021 OZEMPIC Encounter Details Date Type Department Care Team (Late st Contact Info) Description 09/14/2021 Telephone [facility] [address] [place] [address] Mikki Blevins MD [place] [address] Medication Question (OZEMPIC) Social History Tobacco Use Types Packs/Day Years Used Date Smoking Tobacco: Never Smokeless Tobacco: Never Alcohol Use Standard Drinks/Week Comments Yes 0 (1 standard drink = 0.6 oz pur e alcohol) rare PHQ-2 Answer Date Recorded PHQ-2 Score 0 02/26/2020 Comments No Sex and Gender Information Value Date Recorded Sex Assigned at Female 03/04/2020 12:33 PM BROKER Legal Sex Female 5:14 AM BROKER Gender Identity Female 03/04/2020 12:33 PM BROKER Sexual Orientation Straight 03/04/2020 12 :33 PM BROKER documented as of this encounter Miscellaneous Notes * Telephone Encounter - Liberty Rader - 09/14/2021 4:43 PM CDT [facility] Phone Message May a detailed message be left on voicemail: yes Reason for Call: Medication Question or concern regarding medication Prescription Clarification Name of Medication: OZEMPIC Prescribing Provider: [facility] Pharmacy: [id number] [place] [address] What on the order needs clarification? Pt [...] Total Score: 0 02/26/20 20 1:30 PM BROKER documented as of this encounter Care Teams Consultant Intern Relationship Specialty Start Date End Date [facility] [place] [address] PCP - General Family Medicine 05/26/[address] [facility] [address] Pathology Secretary Dietitian, Registered 05/25/18 [place] [address] [place] [address] Assigned PCP 11/16/20 12/18/23 Mikki Blevins MD [address] [place] [address] Endocrinology, Diabetes, and Metabolism 05/07/21 [place] [address] Assigned Endocrinology Provider 08/02/21 01/28/23 Mindi Llanes PA-C [address] [place] [address] Assigned Surgical Provider 09/26/21 08/17/23 documented as of this encounter
--- OUTSIDE RECORDS SUMMARY | 2024-01-25 12:34 | XMS_ITS | Encounter Summary ---
Author Organization [facility] Address [address] [place] [address]. [place] [address] Care Team Providers Care Terminal Superintendent Name Role Phone Annette Alvarez Mabel ALVAREZ CALF SKINNER Unavailable Jocelyn Davidson RD Unavailable [phone] Tamar Murphy APRN CALF SKINNER Unavailable [phone] Nikita Gamble MD Primary Care Provider Naveen Casiano MD Unavailable [phone] Harlan Lin MD Unavailable Milagro vailable Mikki Blevins MD Unavailable [phone] Mikki Blevins MD Unavailable [phone] Mindi LlanesC Unavailable [phone] Encounter Details Date Type Department Care Team (Late st Contact Info) Description 09/06/2020 [facility] Medical Advice [facility] [address] [facility] [address] [place] [address] Jocelyn Davidson, RENATA [facility] [place] [address] [place] [address] Social History Tobacco Use Types Packs/Day Years Used Date Smoking Tobacco: Never Smokeless Tobacco: Never Alcohol Use Standard Drinks/Week Comments Yes 0 (1 standard drink = 0.6 oz pur e alcohol) rare PHQ-2 Answer Date Recorded PHQ-2 Score 0 02/26/2020 Comments No Sex and Gender Information Value Date Recorded Sex Assigned at Female 03/04/2020 12:[address] JUDGE Legal Sex Female 5:[address] Gender Identity Female 03/04/2020 12:[address] JUDGE Sexual Orientation Straight 03/04/2020 12 :[address]GE documented as of this encounter Miscellaneous Notes * Telephone Encounter - Naveen Casiano MD - 09/08/2020 12:23 PM CDT Care everywhere from [place] next visit Naveen Casiano MD * Telephone Encounter - Corina Escobar RD - 09/08/2020 11:07 AM CDT Forwarded [employer] message to Tamar Murphy, who I believe was the intended recipient. Corina Escobar RD, LD, CDE documented in this encounter Plan of Treatment Not on file documented as of this encounter Visit Diagnoses Not on filedocumented in this encounter Additional Health Concerns Assessment Noted Time PHQ-9 Depression Total Score: 0 02/26/20 20 1:[address]GE documented as of this encounter Care Teams Terminal Superintendent Relationship Specialty Start Date End Date Nikita Gamble MD [address] [place] [id number] PCP - General Family Medicine 05/26/20 Annette Alvarez APRN CALF SKINNER [address] [place] [address] Nurse Practitioner Clinical Nurse Specialist 03/22/17 10/21/[address] [facility] [address] [place] [address] Computer Networking Instructor Dietitian, Registered 05/25/18 Tamar Murphy APRN CALF SKINNER [address] [place] [address] Assigned PCP 02/08/20 11/15/20 [place] [address] [place] [address] Assigned PCP 11/16/20 12/18/23 Harlan Lin MD NO INFO AVAILABLE Assigned Endocrinology Provider 12/07/20 08/01/21 Mikki Blevins MD [address] [place] [address] Endocrinology, Diabetes, and Metabolism 05/07/21 Mikki Blevins MD [facility] [place] [address] Assigned Endocrinology Provider 08/02/21 01/28/23 Mindi Llanes PA-C [address] [facility] [address] [place] [address] Assigned Surgical Provider 09/26/21 08/17/23 documented as of this encounter
--- OUTSIDE RECORDS SUMMARY | 2024-01-25 12:34 | XMS_ITS | Referral Summary ---
Author Organization [facility] Address [address] [place] [address]. [place] [address] Care Team Providers Care Healthcare Or Medical Name Role Phone Jocelyn Davidson RD Unavailable [phone] Nikita Gamble MD Primary Care Provider Mikki Blevins MD Unavailable [phone] Allergies No known active allergies Medications Citalopram Hydrobromide (CELEXA PO) Take 40 mg by mouth daily Active Topiramate (TOPAMAX PO) Take 200 mg by mouth daily Active aspirin 81 MG tablet Take by mouth daily Active Pyridoxine HCl (VITAMIN B6 PO) Acti ve Calcium Carb-Cholecalcife rol (CALCIUM + D3 PO) Active sennosides (SENOKOT) 8.6 MG tablet Take 2 tablets by mouth daily Active INSULIN PUMP - OUTPATIENTIndicat ions: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 20 each 11 04/16/19 20 Active insulin pen needle (B-D U/F) 31G X 5 MM miscellaneous Use 4 daily or as directed. 100 each 3 03/05/20 20 Active methocarbamol (ROBAXIN) 500 MG tabletIndications :Back muscle spasm Take 1 tablet (500 mg) by mouth 4 times daily as needed for muscle spasms 40 tablet 09/27/19 21 Active SUMAtriptan (IMITREX) 100 MG tabletIndications :Migraine with status migrainosus, not intractable, unspecified migraine type 1 qd prn VÁSQUEZ . May repeat 2 hours 9 tablet 1 11/07/19 21 Active acetone urine (KETOSTIX) test stripIndications: Type 1 diabetes mellitus with stage 3a chronic kidney disease (H) Use one strip as needed to test urine for ketones 100 strip 3 12/11/19 21 Active insulin aspart (NOVOLOG VIAL) 100 UNITS/ML vialIndications:T ype 1 diabetes mellitus with stage 3a chronic kidney disease (H) For insulin pump use. Up to 125 units per day. 110 mL 1 07/01/19 22 Active levothyroxine (SYNTHROID/LEVOTH ROID) 200 MCG tabletIndications :Hypothyroidism due to acquired atrophy of thyroid Take 1 tablet (200 mcg) by mouth daily 90 tablet 3 07/29/19 22 Active Glucagon, rDNA, (GLUCAGON EMERGENCY) 1 MG KITIndications:Hy pothyroidism due to acquired atrophy of thyroid INJECT 1 MG BY INTRAMUSCULAR ROUTE NEEDED FOR LOW BLOOD SUGAR 2 kit 11/14/19 22 Active amoxicillin (AMOXIL) 500 MG capsule TAKE 4 CAPSULES BY MOUTH ONCE FOR 1 DOSE 12/01/19 22 Active amoxicillin (AMOXIL) 500 MG capsule Take 2,000 mg by mouth Active cefdinir (OMNICEF) 300 MG capsule 02/05/20 Active phentermine (ADIPEX-P) 37.5 MG tabletIndications :Class 1 obesity due to excess calories without serious comorbidity with body mass index (BMI) of 34.0 to 34.9 in adult Take 1 tablet (37.5 mg) by mouth every morning (before breakfast) 90 tablet 1 02/10/20 22 Active Active Problems Problem Noted Date Diagnosed Date CKD (chronic kidney disease) stage 4, GFR 15-29 ml/min 09/22/2021 Class 1 obesity due to exces s calories without serious comorbidity with body mass index (BMI) of 34.0 to 34.9 in adult 07/28/2021 Overview (09/22/2021): 09/22/2021 MWL initial Wt 265# Phentermine Start MKD Assessment & Plan (02/09/2022 12:24 PM SUPERVISOR SELF SERVICE STORE): Patient was congratulated on wt loss success thus far. Healthy habits to assist with further weight loss were discussed. Marnie will restart the phentermine. She will switch her ensure breakfast drink to a protein drink like ensure max. Assessment & Plan (09/22/2021 10:37 AM CDT): 09/22/2021 MWL initial Wt 265# Phentermine Start MKD Migraine with status migrain osus, not intractable, unspecified migraine type 11/06/2020 Assessment & Plan (11/06/2020 4:08 PM CDT): Hemicrania with photophobia and vomiting. Usually treated [...] School Help Needed Not on file 12/17 Comments No Sex and Gender Information Value Date Recorded Sex Assigned at Female 03/04/2020 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 SELF SERVICE STORE Legal Sex Female 5:14 AM SUPERVISOR SELF SERVICE STORE Gender Identity Female 03/04/2020 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 SELF SERVICE STORE Sexual Orientation Straight 03/04/2020 12 :33 PM SUPERVISOR SELF SERVICE STORE Last Filed Vital Signs Vital Sign Reading Time Taken Comments Blood Pressure 128/68 11/06/2020 3:31 PM CDT Pulse 75 11/06/2020 3:31 PM CDT Temperature 37 ??C (98.6 ??F) 11/06/2020 3:31 PM CDT Respiratory Rate 19 02/26/2020 1:31 PM SUPERVISOR SEL[facility]ICE STORE Oxygen Saturation 96% 11/06/2020 3:31 PM CDT Inhaled Oxygen Concentration - - Weight 111.1 kg (245 lb) 02/09/2022 9:39 AM SUPERVISOR SELF SERVICE STORE last recorded Height 180.3 cm (5' 11) 02/09/2022 9:39 AM SUPERVISOR SELF [facility]ICE STORE pt reported Body Mass Index 34.17 02/09/2022 9:39 AM SUPERVISOR SEL[facility]ICE STORE Plan of Treatment Not on file Procedures [...] - HIM SCAN 05/07/2020 1 2:00 AM SUPERVISOR SELF [employer]ICE STORE RENAL PANEL Routine 08/16/2019 5:57 PM CDT Uncontrolled type 1 diabetes with renal manifestation (H) ABSTRACT PAP ([facility] EXTERNAL RESULT) Routine 06/09/2017 ABSTRACT HPV ([facility] EXTERNAL RESULT) Routine 06/09/2017 COMPREHENSIVE METABOLIC [...] CDT Harlan Lin MD LAB - URINE ORDERABL ES Final Result [facility] [address] Lab (no room number, 1st floor of clinic) [place] [address], [place] [phone] * (ABNORMAL) Hemoglobin A1c (01/05/2021 3:04 PM CDT) Hemoglobin A1C 7.4(H) 0.0 - 5.6 % 01/05/2021 3:47 PM CDT CR [facility]AT[facility] Comment: Normal <5.7% Prediabetes 5.7-6.4% ?? Diabetes 6.5% or higher Note: Adopted from ADA consensus guidelines. Blood BLOOD SPECIMEN / Unknown Venipuncture / Unknown 01/05/2021 3:04 PM CDT 01/05/2021 3:04 PM CDT Harlan Lni MD LAB - BLOOD ORDERABL ES Final Result CR [facility] [address] [place] [address] Lab (no room number, 1st floor of clinic) [place] [address], [place] [phone] * (ABNORMAL) TSH with free T4 reflex (01/05/2021 3:03 PM CDT) TSH 8.38(H) 0.40 - 4.00 mU/L 01/06/2021 9:21 AM CDT [facility] Blood BLOOD SPECIMEN / Unknown Venipuncture / Unknown 01/05/2021 3:03 PM CDT 01/05/2021 3:04 PM CDT Harlan Lin MD LAB - BLOOD ORDERABL ES Final Result [facility] [place] [address] Lab (no room number, 1st floor of clinic) [place] [address], [facility] [phone] * (ABNORMAL) Lipid panel reflex to direct [...] ??Greater than or equal to 220 mg/dL us Harlan Lin MD LAB - BLOOD ORDERABL ES Final Result [facility] [address] Lab (no room number, 1st floor of clinic) [place] [address], [facility] [phone] * (ABNORMAL) BASIC METABOLIC PANEL (01/05/2021 3:03 [...] 3:03 PM CDT 01/05/2021 3:04 PM CDT us Harlan Lin MD LAB - BLOOD ORDERABL ES Final Result [facility] [address] Lab (no room number, 1st floor of clinic) [place] [address], [facility] [phone] * (ABNORMAL) EYE EXAM - HIM SCAN (05/07/2020 12:00 AM SUPERVISOR S[facility] [facility]ICE STORE) RETINOPATHY POSITIVE(A ) 05/07/2020 Reynaldo Suyapa Adams - 05/07/2020 12:00 AM SUPERVISOR SELF SERVICE STORE DIABETIC EYE EXAM [facility] us Provider Outside OTHER Edited Result - Final * (ABNORMAL) Renal panel (Alb, BUN, Ca, Cl, CO2, Creat, Gluc, Phos, K, Na) (08/16/2019 5:57 PM CDT) [facility] Sodium 136 133 - 144 mmol/L 08/16/2019 6:32 PM CDT [facility] Potassium 4.6 3.4 - 5.3 mmol/L 08/16/2019 6:[address] [facility] Chloride 107 94 - 109 mmol/L 08/16/2019 6:[address] [facility] Carbon Dioxide 24 20 - 32 mmol/L 08/16/2019 6:39 PM [facility] Anion Gap 5 3 - 14 mmol/L 08/16/2019 6:39 PM [facility] Glucose 166(H) 70 - 99 mg/dL 08/16/2019 6:39 PM [facility] Urea Nitrogen 21 7 - 30 mg/dL 08/16/2019 6:39 PM [facility] Creatinine 1.41(H) 0.52 - 1.04 mg/dL 08/16/2019 6:39 PM [facility] GFR Estimate 42(L) >60 mL/min/{1 .73_m2} 08/16/2019 6:39 PM [facility] Comment: Non GFR Calc Starting 03/14/2018, serum creatinine based estimated GFR (eGFR) will be calculated using the Chronic Kidney Disease Epidemiology Collaboration (CKD-EPI) equation. GFR Estimate If Black 49(L) >60 mL/min/{1 .73_m2} 08/16/2019 6:39 PM CDT [facility] Comment: GFR Calc Starting 03/14/2018, serum creatinine based estimated GFR (eGFR) will be calculated using the Chronic Kidney Disease Epidemiology Collaboration (CKD-EPI) equation. Calcium 9.0 8.5 - 10.1 mg/dL 08/16/2019 6:39 PM CDT [facility] Phosphorus 3.4 2.5 - 4.5 mg/dL 08/16/2019 6:39 PM CDT [facility] Albumin 3.9 3.4 - 5.0 g/dL 08/16/2019 6:39 PM CDT [facility] Blood specimen (specimen) 08/16/2019 5:57 PM CDT 08/16/2019 5:58 PM CDT us Annette Alvarez AIRCRAFT TIME CLERK PRESS SHOP SUPERVISOR LAB - BLOOD ORDERABLE S Final Result [facility] [address] [place] [address], [facility] [phone] [facility] [address] [place] [address], [facility] [phone] * ABSTRACT HPV-NO CHARGE (06/09/2017) HPV Abstract See Scanned Document [facility] 06/09/2017 Narrative [facility]-CENTRAL LABORATORY - 06/09/2017 Krissy Staton MA ??Abstract Quality Initiatives 21 hours ago (1:44 PM) Please abstract the following data from this visit with this patient into the appropriate field in Epic: Tests that can be patient reported without a hard copy: Other Tests found in the patient's chart through Chart Review/Care Everywhere: Pap smear done by this group Jarrell this date: 06/09/17 us Provider Outside LAB - HIM EXTERNAL RESULT Final Result [facility] [address] * ABSTRACT PAP-NO CHARGE (06/09/2017) PAP-ABSTRACT See Scanned Document [facility] 06/09/2017 Narrative [facility] - 06/09/2017 Krissy Staton MA ??Abstract Quality Initiatives 21 hours ago (1:44 PM) Please abstract the following data from this visit with this patient into the appropriate field in Epic: Tests that can be patient reported without a hard copy: Other Tests found in the patient's chart through Chart Review/Care Everywhere: Pap smear done by this group Jarrell this date: 06/09/17 us Provider Outside LAB - HIM EXTERNAL RESULT Final Result [facility] [address] * (ABNORMAL) CBC with platelets + differential (12/25/2014 10:48 PM CDT) WBC 10.7 4.0 - 11.0 10e9/L [facility] RBC Count 3.98 3.8 - 5.2 10e12/L [facility] Hemoglobin 11.9 11.7 - 15.7 g/dL [facility] Hematocrit 34.5(L) 35.0 - 47.0 % [facility] MCV 87 78 - 100 fl [facility] MCH 29.9 26.5 - 33.0 pg [facility] MCHC 34.5 31.5 - 36.5 g/dL [facility] RDW 12.3 10.0 - 15.0 % [facility] Platelet Count 290 150 - 450 10e9/L [facility] Diff Method Automated Method [facility] % Neutrophils 71.9 % [facility] % Lymphocytes 19.2 % [facility] % Monocytes 5.6 % [facility] % Eosinophils 2.7 % [facility] % Basophils 0.5 % [facility] % Immature Granulocytes 0.1 % [facility] Absolute Neutrophil 7.7 1.6 - 8.3 10e9/L [facility] Absolute Lymphocytes 2.1 0.8 - 5.3 10e9/L [facility] Absolute Monocytes 0.6 0.0 - 1.3 10e9/L [facility] Absolute Eosinophils 0.3 0.0 - 0.7 10e9/L [facility] Absolute Basophils 0.1 0.0 - 0.2 10e9/L [facility] Abs Immature Granulocytes 0.0 0 - 0.4 10e9/L [facility] Blood specimen (specimen) 12/25/2014 10:48 PM CDT 12/25/2014 10:58 PM CDT Constance Wolff PA-C LAB - BLOOD ORDERA BLES Final Result [facility] [address] [place] [address], [facility] [phone] * (ABNORMAL) Comprehensive metabolic panel (12/25/2014 10:48 PM CDT) Sodium 137 133 - 144 mmol/L [facility] Potassium 4.3 3.4 - 5.3 mmol/L [facility] Chloride 104 94 - 109 mmol/L [facility] Carbon Dioxide 29 20 - 32 mmol/L [facility] Anion Gap 4 3 - 14 mmol/L [facility] Glucose 77 70 - 99 mg/dL [facility] Urea Nitrogen 16 7 - 30 mg/dL [facility] Creatinine 1.27(H) 0.52 - 1.04 mg/dL [facility] GFR Estimate 45(L) >60 mL/min/1.7 m2 [facility] Comment:Non GFR Calc GFR Estimate If Black 54(L) >60 mL/min/1.7 m2 [facility] Comment: GFR Calc Calcium 8.2(L) 8.5 - 10.1 mg/dL [facility] Bilirubin Total 0.2 0.2 - 1.3 mg/dL [facility] Albumin 3.7 3.4 - 5.0 g/dL [facility] Protein Total 7.1 6.8 - 8.8 g/dL [facility] Alkaline Phosphatase 87 40 - 150 U/L [facility] ALT 24 0 - 50 U/L [facility] AST 16 0 - 45 U/L [facility] Blood specimen (specimen) 12/25/2014 10:48 PM CDT 12/25/2014 10:58 PM CDT Constance Wolff PA-C LAB - BLOOD ORDERA BLES Final Result [facility] [address] [place] [address], [facility] [phone] * (ABNORMAL) *UA reflex to Microscopic (12/25/2014 10:05 PM CDT) Color Urine Yellow [facility] Appearance Urine Clear [facility] Glucose Urine 100(A) NEG mg/dL [facility] Bilirubin Urine Negative NEG [facility] Ketones Urine Negative NEG mg/dL [facility] Specific [place] Urine 1.010 1.003 - 1.035 [facility] Blood Urine Negative NEG [facility] pH Urine 6.0 5.0 - 7.0 pH [facility] Protein Albumin Urine Negative NEG mg/dL [facility] Urobilinogen Urine 0.2 0.2 - 1.0 EU/dL [facility] Nitrite Urine Negative NEG [facility] Leukocyte Esterase Urine Negative NEG [facility] Source Midstream Urine [facility] 12/25/2014 10:0 5 PM CDT 12/25/2014 10:13 PM CDT Gem Ribeiro MD LAB - URINE ORDERABLES Kristie massey Result [facility] [address] [place] [address], [facility] [phone] from Last 3 Months or Most Recently Relevant to Health Maintenance Insurance [employer] Care Teams Healthcare Or Medical Relationship Specialty Start Date End Date Nikita Gamble MD [place] [address] [place] [address] PCP - General Family Medicine 05/26/20 Jocelyn Davidson, REN[place] [address] [place] [address] Entry Level Account Manager Dietitian, Registered 05/25/18 Mikki Blevins MD [address] [place] [address] Endocrinology, Diabetes, and Metabolism 05/07/21
--- OUTSIDE RECORDS SUMMARY | 2024-01-25 12:34 | XMS_ITS | Encounter Summary ---
Author Organization [facility] Address [address] [place] [address]. [place] [address] Care Team Providers Care Mitten Stitcher Name Role Phone StuartJocelyn desouza Bran YANEZ Unavailable [phone] Nikita Gamble MD Primary Care Provider Naveen Casiano MD Unavailable [phone] Mikki Blevins MD Unavailable [phone] Mikki Blevins MD Unavailable [phone] Mindi Llanes PA-C Unavailable [phone] Encounter Details Date Type Department Care Team (Late st Contact Info) Description 08/05/2021 MyC Medical Advice [facility] Specialty [address] [address] Mikki Blevins [place] [address] Social History Tobacco Use Types Packs/Day Years Used Date Smoking Tobacco: Never Smokeless Tobacco: Never Alcohol Use Standard Drinks/Week Comments Yes 0 (1 standard drink = 0.6 oz pur e alcohol) rare PHQ-2 Answer Date Recorded PHQ-2 Score 0 02/26/2020 Comments No Sex and Gender Information Value Date Recorded Sex Assigned at Female 03/04/2020 12:33 PM DRAW FIRE OPERATOR Legal Sex Female 5:14 AM DRAW FIRE OPERATOR Gender Identity Female 03/04/2020 12:33 PM DRAW FIRE OPERATOR Sexual Orientation Straight 03/04/2020 12 :33 PM DRAW FIRE OPERATOR documented as of this encounter Miscellaneous Notes * Telephone Encounter - Radha Fernandez RN - 08/06/2021 8:40 AM CDT documented in this encounter Plan of Treatment Not on file documented as of this encounter Visit Diagnoses Not on filedocumented in this encounter Additional Health Concerns Assessment Noted Time PHQ-9 Depression Total Score: 0 02/26/20 20 1:30 PM DRAW FIRE OPERATOR documented as of this encounter Care Teams Mitten Stitcher Relationship Specialty Start Date End Date Nikita Gamble MD [facility] [address] [place] [address] PCP - General Family Medicine 05/26/[address] [facility] [address] [place] [address] Credit Consultant Dietitian, Registered 05/25/18 [place] [address] [place] [address] Assigned PCP 11/16/20 12/18/23 Mikki Blevins MD [address] [place] [address] Endocrinology, Diabetes, and Metabolism 05/07/21 [place] [address] Assigned Endocrinology Provider 08/02/21 01/28/23 Mindi Llanes PA-C [address] [place] [address] Assigned Surgical Provider 09/26/21 08/17/23 documented as of this encounter
--- OUTSIDE RECORDS SUMMARY | 2024-01-25 12:34 | XMS_ITS | Encounter Summary ---
Author Organization [facility] Address [address] [place] [address]. [place] [address] Care Team Providers Care Picture Painter Name Role Phone Annette Alvarez APRN AUTOMOTIVE COLLISION ESTIMATOR Unavailable Jocelyn Davidson RD Unavailable [phone] Tamar Murphy APRN AUTOMOTIVE COLLISION ESTIMATOR Unavailable Nikita Gamble MD Primary Care Provider [phone] Naveen Casiano MD Unavailable [phone] Harlan Lin MD Unavailable Milagro vailable Mikki Blevins MD Unavailable [phone] Mikki Blevins MD Unavailable [phone] Mindi Llanes PA-C Unavailable [phone] Reason for Visit * Reason Comments Medication Refill Encounter Details Date Type Department Care Team (Late st Contact Info) Description 06/05/2020 Refill [facility] [address] [place] [address] Annette Alvarez APRN AUTOMOTIVE COLLISION ESTIMATOR [address] [place], [place] [id number] Medication Refill Social History Tobacco Use Types Packs/Day Years Used Date Smoking Tobacco: Never Smokeless Tobacco: Never Alcohol Use Standard Drinks/Week Comments Yes 0 (1 standard drink = 0.6 oz pur e alcohol) rare PHQ-2 Answer Date Recorded PHQ-2 Score 0 02/26/2020 Comments No Sex and Gender Information Value Date Recorded Sex Assigned at Female 03/04/2020 12:33 PM UNIT AIDE Legal Sex Female 5:14 AM UNIT AIDE Gender Identity Female 03/04/2020 12:33 PM UNIT AIDE Sexual Orientation Straight 03/04/2020 12 :33 PM UNIT AIDE documented as of this encounter Miscellaneous Notes * Telephone Encounter - Jasmyn Lee RN - 06/05/2020 11:52 AM UNIT AIDE Prescription approved per [facility] Refill Protocol. Jasmyn Lee RN [facility] -- Triage Nurse AIDE documented in this encounter Plan of Treatment Not on file documented as of this encounter Visit Diagnoses Diagnosis Hypothyroidism due to acquired atrophy of thyroid documented in this encounter Additional Health Concerns Assessment Noted Time PHQ-9 Depression Total Score: 0 02/26/20 20 1:30 PM UNIT AIDE documented as of this encounter Care Teams Picture Painter Relationship Specialty Start Date End Date Nikita Gamble MD [address] [place] [address] PCP - General Family Medicine 05/26/20 Annette Alvarez APRN AUTOMOTIVE COLLISION ESTIMATOR [address] [place] [address] Nurse Practitioner Clinical Nurse Specialist 03/22/17 10/21/[address] [place] [address] [place] [address] Ordained Minister Dietitian, Registered 05/25/18 Tamar Murphy APRN AUTOMOTIVE COLLISION ESTIMATOR [address] [place] [id number] Assigned PCP 02/08/20 11/15/20 [place] [address] [place] [place] [address] Assigned PCP 11/16/20 12/18/23 Harlan Lin MD NO INFO AVAILABLE Assigned Endocrinology Provider 12/07/20 08/01/21 Mikki Blevins MD [address] [place] [address] Endocrinology, Diabetes, and Metabolism 05/07/21 Mikki Blevins MD [facility] [place] [address] Assigned Endocrinology Provider 08/02/21 01/28/23 Mindi Llanes PA-C [address] [place] [address] Assigned Surgical Provider 09/26/21 08/17/23 documented as of this encounter
--- OUTSIDE RECORDS SUMMARY | 2024-01-25 12:34 | XMS_ITS | Encounter Summary ---
Author Organization [facility] Address [address] [place] [address]. [place] [address] Care Team Providers Care Manager Printing Name Role Phone StuartJocelyn desouza Bran YANEZ Unavailable [phone] Nikita Gamble MD Primary Care Provider Naveen Casiano MD Unavailable [phone] Mikki Blevins MD Unavailable [phone] Mikki Blevins MD Unavailable [phone] Mindi Llanes PA-C Unavailable [phone] Encounter Details Date Type Department Care Team (Late st Contact Info) Description 09/16/2021 MyC Medical Advice [facility] Specialty [address] [address] Mikki Blevins MD [place] [address] Social History Tobacco Use Types Packs/Day Years Used Date Smoking Tobacco: Never Smokeless Tobacco: Never Alcohol Use Standard Drinks/Week Comments Yes 0 (1 standard drink = 0.6 oz pur e alcohol) rare PHQ-2 Answer Date Recorded PHQ-2 Score 0 02/26/2020 Comments No Sex and Gender Information Value Date Recorded Sex Assigned at Female 03/04/2020 12:33 PM DIAMOND SORTER Legal Sex Female 5:14 AM DIAMOND SORTER Gender Identity Female 03/04/2020 12:33 PM DIAMOND SORTER Sexual Orientation Straight 03/04/2020 12 :33 PM DIAMOND SORTER documented as of this encounter Plan of Treatment Not on file documented as of this encounter Visit Diagnoses Not on filedocumented in this encounter Additional Health Concerns Assessment Noted Time PHQ-9 Depression Total Score: 0 02/26/20 20 1:30 PM DIAMOND SORTER documented as of this encounter Care Teams Manager Printing Relationship Specialty Start Date End Date Nikita Gamble MD [place] [address] [place] [address] PCP - General Family Medicine 05/26/[address] [place] [address] [place] [address] Heavy Equipment Rental Associate Dietitian, Registered 05/25/18 [place] [address] [place] [address] Assigned PCP 11/16/20 12/18/23 Mikki Blevins MD [address] [place] [address] Endocrinology, Diabetes, and Metabolism 05/07/21 [place] [address] Assigned Endocrinology Provider 08/02/21 01/28/23 Mindi Llanes PA-C [address] [facility] [address] [place] [address] Assigned Surgical Provider 09/26/21 08/17/23 documented as of this encounter
--- OUTSIDE RECORDS SUMMARY | 2024-01-25 12:34 | XMS_ITS | Encounter Summary ---
Author Organization [facility] Address [address] [place] [address]. [place] [address] Care Team Providers Care Signal Manager Name Role Phone StuartJocelyn desouza Bran YANEZ Unavailable [phone] Nikita Gamble MD Primary Care Provider [phone] Naveen Casiano MD Unavailable [phone] Mikki Blevins MD Unavailable [phone] Mikki Blevins MD Unavailable [phone] Mindi Llanes PA-C Unavailable [phone] Encounter Details Date Type Department Care Team (Late st Contact Info) Description 12/21/2021 [facility] Medical Advice [facility] [place] [id number] [facility] [address] [place] [phone] Mindi Llaens PA-C [address] [facility] [address] [place] [address] Social History Tobacco Use Types Packs/Day Years Used Date Smoking Tobacco: Never Smokeless Tobacco: Never Alcohol Use Standard Drinks/Week Comments Yes 0 (1 standard drink = 0.6 oz pur e alcohol) rare PHQ-2 Answer Date Recorded PHQ-2 Score 0 02/26/2020 Comments No Sex and Gender Information Value Date Recorded Sex Assigned at Female 03/04/2020 12:33 PM SORTING AND FOLDING SUPERVISOR Legal Sex Female 5:14 AM SORTING AND FOLDING SUPERVISOR Gender Identity Female 03/04/2020 12:33 PM SORTING AND FOLDING SUPERVISOR Sexual Orientation Straight 03/04/2020 12 :33 PM SORTING AND FOLDING SUPERVISOR documented as of this encounter Plan of Treatment Not on file documented as of this encounter Visit Diagnoses Not on filedocumented in this encounter Additional Health Concerns Assessment Noted Time PHQ-9 Depression Total Score: 0 02/26/20 20 1:30 PM SORTING AND FOLDING SUPERVISOR documented as of this encounter Care Teams Signal Manager Relationship Specialty Start Date End Date Nikita Gamble MD [place] [address] [place] [address] PCP - General Family Medicine 05/26/[address] [place] [address] Christmas Tree Farmer Dietitian, Registered 05/25/18 [place] [address] [place] [address] Assigned PCP 11/16/20 12/18/23 Mikki Blevins MD [address] [place] [address] Endocrinology, Diabetes, and Metabolism 05/07/21 Mikki Blevins MD [place] [address] Assigned Endocrinology Provider 08/02/21 01/28/23 Mindi Llanes PA-C 6[address] [facility] [address] [place] [address] Assigned Surgical Provider 09/26/21 08/17/23 documented as of this encounter
--- OUTSIDE RECORDS SUMMARY | 2024-01-25 12:34 | XMS_ITS | Encounter Summary ---
Author Organization [facility] Address [address] [place] [address]. [place] [address] Care Team Providers Care Digital Court Reporter Name Role Phone Jocelyn Davidson RENATA Unavailable [phone] Nikita Gamble MD Primary Care Provider Naveen Casiano MD Unavailable [phone] Harlan Lin MD Unavailable Milagro vailable Mikki Blevins MD Unavailable [phone] Mikki Blevins MD Unavailable [phone] Mindi Llanes PA-C Unavailable [phone] Reason for Visit * Reason Onset Date Comments Diabetes Education 12/05/2020 Encounter Details Date Type Department Care Team (Late st Contact Info) Description 12/05/2020 Telephone [facility] Endocrinology [address] [place] [phone] Harlan Lin MD NO INFO AVAILABLE Diabetes [...] Assigned at Female 03/04/2020 12:33 PM DIRECTOR OF OPERATIONS FOR THERAPY Legal Sex Female 5:14 AM DIRECTOR OF OPERATIONS FOR THERAPY Gender Identity Female 03/04/2020 12:33 PM DIRECTOR OF OPERATIONS FOR THERAPY Sexual Orientation Straight 03/04/2020 12 :33 PM DIRECTOR OF OPERATIONS FOR THERAPY COVID-19 Exposure Response Date Recorded In the last month, have you been in contact with someone who was confirmed or suspected to have Coronavirus / COVID-19? No / Unsure 12/03/2020 8:01 PM CDT documented as of this encounter Miscellaneous Notes * Telephone Encounter - Fang Graychhayadeuce - 12/05/2020 8:11 AM CDT Diabetes Education Scheduling Outreach #1: Call to patient to schedule. Left message with phone number to call to schedule, if pt calls back to schedule please schedule with Jocelyn Davidson. Plan for 2nd outreach attempt within 1 week. Hernando Gray [facility] Scheduling documented in this encounter Plan of Treatment Not on file documented as of this encounter Visit Diagnoses Not on filedocumented in this encounter Additional Health Concerns Assessment Noted Time PHQ-9 Depression Total Score: 0 02/26/20 20 1:30 PM DIRECTOR OF OPERATIONS FOR THERAPY documented as of this encounter Care Teams Digital Court Reporter Relationship Specialty Start Date End Date Nikita Gamble MD [address] [place] [address] PCP - General Family Medicine 05/26/[address] [place] [address] Steward/Stewardess Second Dietitian, Registered 05/25/18 [place] [address] [place] [address] Assigned PCP 11/16/20 12/18/23 Harlan Lin MD NO INFO AVAILABLE Assigned Endocrinology Provider 12/07/20 08/01/21 Mikki Blevins MD 9 [place] [address] Endocrinology, Diabetes, and Metabolism 05/07/21 [place] [address] Assigned Endocrinology Provider 08/02/21 01/28/23 Mindi Llanes PA-C [address] [place] [address] Assigned Surgical Provider 09/26/21 08/17/23 documented as of this encounter
--- OUTSIDE RECORDS SUMMARY | 2024-01-25 12:34 | XMS_ITS | Encounter Summary ---
Author Organization [facility] Address [address] [place] [address]. [place] [address] Care Team Providers Care Seconds Grader Name Role Phone Stuart Jocelyn Bran YANEZ Unavailable [phone] Nikita Gamble MD Primary Care Provider Naveen Casiano MD Unavailable [phone] Mikki Blevins MD Unavailable [phone] Mikki Blevins MD Unavailable [phone] Mindi Llanes PA-C Unavailable [phone] Encounter Details Date Type Department Care Team (Late st Contact Info) Description 09/21/2021 [facility] Medical [facility]ice [facility] [place] [place] Social History Tobacco Use Types Packs/Day Years Used Date Smoking Tobacco: Never Smokeless Tobacco: Never Alcohol Use Standard Drinks/Week Comments Yes 0 (1 standard drink = 0.6 oz pur e alcohol) rare PHQ-2 Answer Date Recorded PHQ-2 Score 0 02/26/2020 Comments No Sex and Gender Information Value Date Recorded Sex Assigned at Female 03/04/2020 12:33 PM PEDIATRIC ONCOLOGY NURSE Legal Sex Female 5:14 AM PEDIATRIC ONCOLOGY NURSE Gender Identity Female 03/04/2020 12:33 PM PEDIATRIC ONCOLOGY NURSE Sexual Orientation Straight 03/04/2020 12 :33 PM PEDIATRIC ONCOLOGY NURSE documented as of this encounter Plan of Treatment Not on file documented as of this encounter Visit Diagnoses Not on filedocumented in this encounter Additional Health Concerns Assessment Noted Time PHQ-9 Depression Total Score: 0 02/26/20 20 1:30 PM PEDIATRIC ONCOLOGY NURSE documented as of this encounter Care Teams Seconds Grader Relationship Specialty Start Date End Date Nikita Gamble MD [facility] [address] [place] [address] PCP - General Family Medicine 05/26/20 Jocelyn Davidson, RENATA [address] [place] [address] Volleyball Commentator Dietitian, Registered 05/25/18 [place] [address] [place] [address] Assigned PCP 11/16/20 12/18/23 Mikki Blevins MD [address] [place] [address] Endocrinology, Diabetes, and Metabolism 05/07/21 [place] [address] Assigned Endocrinology Provider 08/02/21 01/28/23 Mindi Llanes PA-C [address] [facility] [address] [place] [address] Assigned Surgical Provider 09/26/21 08/17/23 documented as of this encounter
--- OUTSIDE RECORDS SUMMARY | 2024-01-25 12:34 | XMS_ITS | Encounter Summary ---
Author Organization [facility] Address [address] [place] [address]. [place] [address] Care Team Providers Care Tool Liaison Name Role Phone Jocelyn Davidson RENATA Unavailable [phone] Nikita Gamble MD Primary Care Provider Naveen Casiano MD Unavailable [phone] Harlan Lin MD Unavailable Milagro vailable Mikki Blevins MD Unavailable [phone] Mikki Blevins MD Unavailable [phone] Mindi Llanes PA-C Unavailable [phone] Encounter Details Date Type Department Care Team (Late st Contact Info) Description 12/02/2020 [facility] [place]ice [address] [phone] Tamar Tristan Social History Tobacco Use Types Packs/Day Years Used Date Smoking Tobacco: Never Smokeless Tobacco: Never Alcohol Use Standard Drinks/Week Comments Yes 0 (1 standard drink = 0.6 oz pur e alcohol) rare PHQ-2 Answer Date Recorded PHQ-2 Score 0 02/26/2020 Comments No Sex and Gender Information Value Date Recorded Sex Assigned at Female 03/04/2020 12:33 PM FERTILIZER SUPERVISOR Legal Sex Female 5:14 AM FERTILIZER SUPERVISOR Gender Identity Female 03/04/2020 12:33 PM FERTILIZER SUPERVISOR Sexual Orientation Straight 03/04/2020 12 :33 PM FERTILIZER SUPERVISOR COVID-19 Exposure Response Date Recorded In [...] Total Score: 0 02/26/20 20 1:30 PM FERTILIZER SUPERVISOR documented as of this encounter Care Teams Tool Liaison Relationship Specialty Start Date End Date Nikita Gamble MD [address] [place] [address] PCP - General Family Medicine 05/26/[address] [place] [address] French Professor Dietitian, Registered 05/25/18 [place] [address] [place] [address] Assigned PCP 11/16/20 12/18/23 Harlan Lin MD NO INFO AVAILABLE Assigned Endocrinology Provider 12/07/20 08/01/21 Mikki Blevins MD [address] [place] [address] Endocrinology, Diabetes, and Metabolism 05/07/21 [place] [address] Assigned Endocrinology Provider 08/02/21 01/28/23 Mindi Llanes PA-C [address] [place] [address] Assigned Surgical Provider 09/26/21 08/17/23 documented as of this encounter
--- OUTSIDE RECORDS SUMMARY | 2024-01-25 12:34 | XMS_ITS | Encounter Summary ---
Author Organization [facility] Address [address] [place] [address]. [place] [address] Care Team Providers Care Bearing Ring Assembler Name Role Phone Stuart Jocelyn Bran YANEZ Unavailable [phone] Nikita Gamble MD Primary Care Provider [phone] Naveen Casiano MD Unavailable [phone] Mikki Blevins MD Unavailable [phone] Mikki Blevins MD Unavailable [phone] Mindi Llanes PA-C Unavailable [phone] Encounter Details Date Type Department Care Team (Late st Contact Info) Description 02/05/2022 My[facility] Medical Advice [facility] [address] [place] [phone] Liberty Gilliam [place] Social History Tobacco Use Types Packs/Day Years Used Date Smoking Tobacco: Never Smokeless Tobacco: Never Alcohol Use Standard Drinks/Week Comments Yes 0 (1 standard drink = 0.6 oz pur e alcohol) rare PHQ-2 Answer Date Recorded PHQ-2 Score 0 02/26/2020 Comments No Sex and Gender Information Value Date Recorded Sex Assigned at Female 03/04/2020 12:33 PM LEAD SEWAGE PLANT OPERATOR Legal Sex Female 5:14 AM LEAD SEWAGE PLANT OPERATOR Gender Identity Female 03/04/2020 12:33 PM LEAD SEWAGE PLANT OPERATOR Sexual Orientation Straight 03/04/2020 12 :33 PM LEAD SEWAGE PLANT OPERATOR documented as of this encounter Plan of Treatment Not on file documented as of this encounter Visit Diagnoses Not on filedocumented in this encounter Additional Health Concerns Assessment Noted Time PHQ-9 Depression Total Score: 0 02/26/20 20 1:30 PM LEAD SEWAGE PLANT OPERATOR documented as of this encounter Care Teams Bearing Ring Assembler Relationship Specialty Start Date End Date Nikita Gamble MD [place] [address] [place] [address] PCP - General Family Medicine 05/26/[address] [place] [address] [place] [address] Machine Candle Molder Dietitian, Registered 05/25/18 [place] [address] [place] [address] Assigned PCP 11/16/20 12/18/23 Mikki Blevins MD [address] [place] [address] Endocrinology, Diabetes, and Metabolism 05/07/21 Mikki Blevins [place] [address] Assigned Endocrinology Provider 08/02/21 01/28/23 Mindi Llanes PA-C [address] [facility] [address] [place] [address] Assigned Surgical Provider 09/26/21 08/17/23 documented as of this encounter
--- OUTSIDE RECORDS SUMMARY | 2024-01-25 12:34 | XMS_ITS | Clinical Summary ---
Author Organization [facility] Address [address] [place] [address]. [place] [address] Care Team Providers Care Grease Maker Name Role Phone Jocelyn Davidson RD Unavailable [phone] Nikita Gamble MD Primary Care Provider Mikki Blevins MD Unavailable [phone] Allergies No known active allergies Medications [...] hours Using T:Connect: Yes Dexcom Sharing Code: [id number] 02/22/20 19 Active blood glucose (ACCU-CHEK RADHA [...] MKD Assessment & Plan (02/09/2022 12:24 PM SEISMOGRAPH CHIEF): Patient was congratulated on wt loss success [...] Sex Assigned at Female 03/04/2020 12:33 PM SEISMOGRAPH CHIEF Legal Sex Female 5:14 AM SEISMOGRAPH CHIEF Gender Identity Female 03/04/2020 12:33 PM SEISMOGRAPH CHIEF Sexual Orientation Straight 03/04/2020 12 :33 PM SEISMOGRAPH CHIEF Last Filed Vital Signs Vital Sign Reading Time Taken Comments Blood Pressure 128/68 11/06/2020 3:31 PM CDT Pulse 75 11/06/2020 3:31 PM CDT Temperature 37 ??C (98.6 ??F) 11/06/2020 3:31 PM CDT Respiratory Rate 19 02/26/2020 1:31 PM SEISMOGRAPH CHIEF Oxygen Saturation 96% 11/06/2020 3:31 PM CDT Inhaled Oxygen Concentration - - Weight 111.1 kg (245 lb) 02/09/2022 9:39 AM SEISMOGRAPH CHIEF last recorded Height 180.3 cm (5' 11) 02/09/2022 9:39 AM SEISMOGRAPH CHIEF pt reported Body Mass Index 34.17 02/09/2022 9:39 AM SEISMOGRAPH CHIEF Plan of Treatment Health Maintenance Due Date [...] year) 2023 02/26/2020, 02/26/2020 COVID-19 Vaccine ( - season) 2023 06/12/2020, 05/22/2020 INFLUENZA VACCINE (#1) [...] - HIM SCAN 05/07/2020 1 2:00 AM SEISMOGRAPH CHIEF RENAL PANEL Routine 08/16/2019 5:57 PM CDT Uncontrolled type 1 diabetes with renal manifestation (H) ABSTRACT PAP ([facility] EXTERNAL RESULT) Routine 06/09/2017 ABSTRACT HPV ([facility] EXTERNAL RESULT) Routine 06/09/2017 COMPREHENSIVE METABOLIC PANEL [...] LAB - URINE ORDERABL ES Final Result Performing Organization Address City/[facility]/ZIP Co de Phone Number OX LABORATORY [facility] [address] Lab (no room number, 1st floor of clinic) [place] [address], [place] [phone] * (ABNORMAL) Hemoglobin A1c (01/05/2021 3:04 PM [...] BLOOD ORDERABL ES Final Result CR LABORATORY [facility] [address] [place] [address] Lab (no room number, 1st floor of clinic) [place] [address], [place] [phone] * (ABNORMAL) TSH with free T4 reflex (01/05/2021 3:03 PM CDT) TSH 8.38(H) 0.40 - 4.00 mU/L 01/06/2021 9:21 AM CDT [facility] Blood BLOOD SPECIMEN / Unknown Venipuncture / Unknown 01/05/2021 3:03 PM CDT 01/05/2021 3:04 PM CDT us Harlan Lin MD LAB - BLOOD ORDERABL ES Final Result [facility] [address] Lab (no room number, 1st floor of clinic) [place] [address], [facility] [phone] * (ABNORMAL) Lipid panel reflex to direct [...] BLOOD ORDERABL ES Final Result [facility] [address] Lab (no room number, 1st floor of clinic) [place] [address], [facility] [phone] * (ABNORMAL) BASIC METABOLIC PANEL (01/05/2021 3:03 [...] BLOOD ORDERABL ES Final Result OX [facility]AT[facility] [address] Lab (no room number, 1st floor of clinic) [place] [address], [facility] [phone] * (ABNORMAL) EYE EXAM - HIM SCAN (05/07/2020 12:00 AM SEISMOGRAPH CHIEF) RETINOPATHY POSITIVE(A ) 05/07/2020 Narrative Suyapa Adams - 05/07/2020 12:00 AM SEISMOGRAPH CHIEF DIABETIC EYE EXAM [facility] Outside OTHER Edited Result - Final * (ABNORMAL) Renal panel (Alb, BUN, Ca, Cl, CO2, Creat, Gluc, Phos, K, Na) (08/16/2019 5:57 PM CDT) [facility] Sodium 136 133 - 144 mmol/L 08/16/2019 6:32 PM CDT [facility] Potassium 4.6 3.4 - 5.3 mmol/L 08/16/2019 6:32 PM CDT [facility] Chloride 107 94 - 109 mmol/L 08/16/2019 6:32 PM CDT [facility] Carbon Dioxide 24 20 - 32 mmol/L 08/16/2019 6:39 PM CDT [facility] Anion Gap 5 3 - 14 mmol/L 08/16/2019 6:39 PM [facility] Glucose 166(H) 70 - 99 mg/dL 08/16/2019 6:39 PM [facility] Urea Nitrogen 21 7 - 30 mg/dL 08/16/2019 6:39 PM [facility] Creatinine 1.41(H) 0.52 - 1.04 mg/dL 08/16/2019 6:39 PM [facility] GFR Estimate 42(L) >60 mL/min/{1 .73_m2} 08/16/2019 6:39 PM [facility] Comment: Non GFR Calc Starting 03/14/2018, serum creatinine based estimated GFR (eGFR) will be calculated using the Chronic Kidney Disease Epidemiology Collaboration (CKD-EPI) equation. GFR Estimate If Black 49(L) >60 mL/min/{1 .73_m2} 08/16/2019 6:39 PM [facility] Comment: GFR Calc Starting 03/14/2018, serum creatinine based estimated GFR (eGFR) will be calculated using the Chronic Kidney Disease Epidemiology Collaboration (CKD-EPI) equation. Calcium 9.0 8.5 - 10.1 mg/dL 08/16/2019 6:39 PM [facility] Phosphorus 3.4 2.5 - 4.5 mg/dL 08/16/2019 6:39 PM [facility] Albumin 3.9 3.4 - 5.0 g/dL 08/16/2019 6:39 PM [facility] Blood specimen (specimen) 08/16/2019 5:57 PM CDT 08/16/2019 5:58 PM CDT us Annette Alvarez PULL OVER PULL TAB DEALER LAB - BLOOD ORDERABLE S Final Result [facility] [address] [address], [facility] [phone] [facility] [address] [place] [address], [place] [phone] * ABSTRACT HPV-NO CHARGE (06/09/2017) HPV Abstract See Scanned Document [facility] 06/09/2017 Narrative [facility] 06/09/2017 Krissy Staton MA ??Abstract [...] LAB - HIM EXTERNAL RESULT Final Result [facility] [address] * ABSTRACT PAP-NO CHARGE (06/09/2017) [facility] PAP-ABSTRACT See Scanned Document [facility] 06/09/2017 Narrative [facility] 06/09/2017 Krissy Staton MA ??Abstract [...] LAB - HIM EXTERNAL RESULT Final Result [facility] [address] * (ABNORMAL) CBC with platelets + differential (12/25/2014 10:48 PM CDT) [facility] WBC 10.7 4.0 - 11.0 10e9/L [facility] RBC Count 3.98 3.8 - 5.2 10e12/L [facility] Hemoglobin 11.9 11.7 - 15.7 g/dL [facility] Hematocrit 34.5(L) 35.0 - 47.0 % [facility] MCV 87 78 - 100 fl [facility] MCH 29.9 26.5 - 33.0 pg [facility] MCHC 34.5 31.5 - 36.5 g/dL [facility] RDW 12.3 10.0 - 15.0 % [facility] Platelet Count 290 150 - 450 10e9/L [facility] Diff Method Automated Method [facility] % Neutrophils 71.9 % [facility] % Lymphocytes 19.2 % [facility] % Monocytes 5.6 % [facility] % Eosinophils 2.7 % [facility] % Basophils 0.5 % [facility] % Immature Granulocytes 0.1 % [facility] Absolute Neutrophil 7.7 1.6 - 8.3 10e9/L [facility] Absolute Lymphocytes 2.1 0.8 - 5.3 10e9/L [facility] Absolute Monocytes 0.6 0.0 - 1.3 10e9/L [facility] Absolute Eosinophils 0.3 0.0 - 0.7 10e9/L [facility] Absolute Basophils 0.1 0.0 - 0.2 10e9/L [facility] Abs Immature Granulocytes 0.0 0 - 0.4 10e9/L [facility] Blood specimen (specimen) 12/25/2014 10:48 PM CDT 12/25/2014 10:58 PM CDT us Constance Wolff PA-C LAB - BLOOD ORDERA BLES Final Result [facility] [address] [address], [facility] [phone] * (ABNORMAL) Comprehensive metabolic panel (12/25/2014 10:48 PM CDT) Sodium 137 133 - 144 mmol/L [facility] Potassium 4.3 3.4 - 5.3 mmol/L [facility] Chloride 104 94 - 109 mmol/L [facility] Carbon Dioxide 29 20 - 32 mmol/L [facility] Anion Gap 4 3 - 14 mmol/L [facility] Glucose 77 70 - 99 mg/dL [facility] Urea Nitrogen 16 7 - 30 mg/dL [facility] Creatinine 1.27(H) 0.52 - 1.04 mg/dL [facility] GFR Estimate 45(L) >60 mL/min/1.7 m2 [facility] Comment:Non GFR Calc GFR Estimate If Black 54(L) >60 mL/min/1.7 m2 [facility] Comment: GFR Calc Calcium 8.2(L) 8.5 - 10.1 mg/dL [facility] Bilirubin Total 0.2 0.2 - 1.3 mg/dL [facility] Albumin 3.7 3.4 - 5.0 g/dL [facility] Protein Total 7.1 6.8 - 8.8 g/dL [facility] Alkaline Phosphatase 87 40 - 150 U/L [facility] ALT 24 0 - 50 U/L [facility] AST 16 0 - 45 U/L [facility] Blood specimen (specimen) 12/25/2014 10:48 PM CDT 12/25/2014 10:58 PM CDT Constance Wolff PA-C LAB - BLOOD ORDERA BLES Final Result [facility] [address] [address], [facility] [phone] * (ABNORMAL) *UA reflex to Microscopic (12/25/2014 10:05 PM CDT) Color Urine Yellow [facility] Appearance Urine Clear [facility] Glucose Urine 100(A) NEG mg/dL [facility] Bilirubin Urine Negative NEG [facility] Ketones Urine Negative NEG mg/dL [facility] Specific Edroy Urine 1.010 1.003 - 1.035 [facility] Blood Urine Negative NEG [facility] pH Urine 6.0 5.0 - 7.0 pH [facility] Protein Albumin Urine Negative NEG mg/dL [facility] Urobilinogen Urine 0.2 0.2 - 1.0 EU/dL [facility] Nitrite Urine Negative NEG [facility] Leukocyte Esterase Urine Negative NEG [facility] Source Midstream Urine [facility] 12/25/2014 10:0 5 PM CDT 12/25/2014 10:13 PM CDT us Gem Ribeiro MD LAB - URINE ORDERABLES Kristie massey Result [facility] [address] [place] [address], [facility] [phone] from Last 3 Months or Most Recently Relevant to Health Maintenance Insurance [employer] Care Teams Grease Maker Relationship Specialty Start Date End Date Nikita Gamble MD [facility] [place] [address] [place] [address] PCP - General Family Medicine 05/26/[address] [place] [address] Embossing Press Operator Dietitian, Registered 05/25/18 Mikki Blevins MD [address] [place], [place] [address] Endocrinology, Diabetes, and Metabolism 05/07/21
--- OUTSIDE RECORDS SUMMARY | 2024-01-25 12:35 | XMS_ITS | Encounter Summary ---
Author Organization [facility] Address [address] [place] [address]. [place] [address] Care Team Providers Care Senior Sustainability Advisor Name Role Phone Antonio Annette Monroe APRN SANDING MACHINE BUFFER Unavailable Goran Lloyd MD Primary Care Provider Jocelyn Davidson RD Unavailable [phone] Tamar Murphy APRN SANDING MACHINE BUFFER Unavailable [phone] Nikita Gamble MD Primary Care Provider Naveen Casiano MD Unavailable [phone] Harlan Lin MD Unavailable Milagro vailable Mikki Blevins MD Unavailable [phone] Mikki Blevins MD Unavailable [phone] Mindi Llanes PA-C Unavailable [phone] Encounter Details Date Type Department Care Team (Late st Contact Info) Description 06/29/2018 [facility] [address] [address] Mimi Cyr CMA Social History Tobacco Use Types Packs/Day Years Used Date Smoking Tobacco: Never Smokeless Tobacco: Never Alcohol Use Standard Drinks/Week Comments Yes 0 (1 standard drink = 0.6 oz pur e alcohol) rare Comments No Sex and Gender Information Value Date Recorded Sex Assigned at Female 03/04/2020 12:33 PM SLD EDUCATIONAL AIDE Legal Sex Female 5:14 AM SLD EDUCATIONAL AIDE Gender Identity Female 03/04/2020 12:33 PM SLD EDUCATIONAL AIDE Sexual Orientation Straight 03/04/2020 12 :33 PM SLD EDUCATIONAL AIDE documented as of this encounter Plan of Treatment Not on file documented as of this encounter Visit Diagnoses Not on filedocumented in this encounter Additional Health Concerns Infection Onset Date Last Indicated Resolved Time Rule Out COVID-19 02/26/2020 02/26/2020 02/27/2020 4:32 PM SLD EDUCATIONAL AIDE documented as of this encounter Care Teams Senior Sustainability Advisor Relationship Specialty [place] [address] [place], [place] [id number] PCP - General Family Practice 12/29/17 05/21/20 Nikita Gamble MD [address] [place] [id number] PCP - General Family Medicine 05/26/20 Annette Alvarez APRN SANDING MACHINE BUFFER [address] [place], [place] [id number] Nurse Practitioner Clinical Nurse Specialist 03/22/17 10/21/[address] [place] [id number] Subwarehouse Supervisor Dietitian, Registered 05/25/18 Tamar Murphy APRN SANDING MACHINE BUFFER [address] [place] [phone] Assigned PCP 02/08/20 11/15/20 [place] [address] [place], [place] [id number] Assigned PCP 11/16/20 12/18/23 Harlan Lin MD NO INFO AVAILABLE Assigned Endocrinology Provider 12/07/20 08/01/21 Mikki Blevins MD [address] [place] [address] Endocrinology, Diabetes, and Metabolism 05/07/21 [place] [address] Assigned Endocrinology Provider 08/02/21 01/28/23 Mindi Llanes PA-C [address] [place] [address] Assigned Surgical Provider 09/26/21 08/17/23 documented as of this encounter
--- OUTSIDE RECORDS SUMMARY | 2024-01-25 12:35 | XMS_ITS | Encounter Summary ---
Author Organization [facility] Address [address] [place] [address]. [place] [address] Care Team Providers Care Student Counselor Name Role Phone Antonio Annette Monroe APRN BRIDGE OPERATOR SLIP Unavailable Goran Lloyd MD Primary Care Provider [phone] Unavailable [phone] Tamar Murphy APRN BRIDGE OPERATOR SLIP Unavailable [phone] Nikita Gamble MD Primary Care Provider Naveen Casiano MD Unavailable [phone] Harlan Lin MD Unavailable Milagro vailable Mikki Blevins MD Unavailable [phone] Mikki Blevins MD Unavailable [phone] Mindi Llanes PA-C Unavailable [phone] Encounter Details Date Type Department Care Team (Late st Contact Info) Description 05/26/2018 [facility] [place] [facility] [address] [address] [place] [address] Social History Tobacco Use Types Packs/Day Years Used Date Smoking Tobacco: Never Smokeless Tobacco: Never Alcohol Use Standard Drinks/Week Comments Yes 0 (1 standard drink = 0.6 oz pur e alcohol) rare Comments No Sex and Gender Information Value Date Recorded Sex Assigned at Female 03/04/2020 12:33 PM SYSTEM TRAINER Legal Sex Female 5:14 AM SYSTEM TRAINER Gender Identity Female 03/04/2020 12:33 PM SYSTEM TRAINER Sexual Orientation Straight 03/04/2020 12 :33 PM SYSTEM TRAINER documented as of this encounter Plan of Treatment Not on file documented as of this encounter Visit Diagnoses Not on filedocumented in this encounter Additional Health Concerns Infection Onset Date Last Indicated Resolved Time Rule Out COVID-19 02/26/2020 02/26/2020 02/27/2020 4:32 PM SYSTEM TRAINER documented as of this encounter Care Teams Student Counselor Relationship Specialty [place] [address] [place] [address] PCP - General Family Practice 12/29/17 05/21/20 Nikita Gamble MD [address] [place] [phone] PCP - General Family Medicine 05/26/20 Annette Alvarez APRN BRIDGE OPERATOR SLIP [address] [place] [address] Nurse Practitioner Clinical Nurse Specialist 03/22/17 10/21/[address] [place] [address] Hydramatic Mechanic Dietitian, Registered 05/25/18 Tamar Murphy APRN BRIDGE OPERATOR SLIP [address] [place] [phone] Assigned PCP 02/08/20 11/15/20 [place] [address] [place] [place] [address] Assigned PCP 11/16/20 12/18/23 Harlan Lin MD NO INFO AVAILABLE Assigned Endocrinology Provider 12/07/20 08/01/21 Mikki Blevins MD [address] [place] [address] Endocrinology, Diabetes, and Metabolism 05/07/21 [place] [address] Assigned Endocrinology Provider 08/02/21 01/28/23 Mindi Llanes PA-C [address] [place] [address] Assigned Surgical Provider 09/26/21 08/17/23 documented as of this encounter
--- OUTSIDE RECORDS SUMMARY | 2024-01-25 12:35 | XMS_ITS | Encounter Summary ---
Author Organization [facility] Address [address] [place] [address]. [place] [address] Care Team Providers Care Party Plan Sales Unit Advisor Name Role Phone Antonio Annette Mabel ALVAREZ SAILING INSTRUCTOR Unavailable Goran Lloyd MD Primary Care Provider [phone] Unavailable [phone] Tamar Murphy APRN SAILING INSTRUCTOR Unavailable Nikita Gamble MD Primary Care Provider Naveen Casiano MD Unavailable [phone] Harlan Lin MD Unavailable Milagro vailable Mikki Blevins MD Unavailable [phone] Mikki Blevins MD Unavailable [phone] Mindi Llanes PA-C Unavailable [phone] Encounter Details Date Type Department Care Team (Late st Contact Info) Description 09/01/2018 [facility] [address] [address] Jocelyn Davidson, RENATA [address] [place] [address] Social History Tobacco Use Types Packs/Day Years Used Date Smoking Tobacco: Never Smokeless Tobacco: Never Alcohol Use Standard Drinks/Week Comments Yes 0 (1 standard drink = 0.6 oz pur e alcohol) rare Comments No Sex and Gender Information Value Date Recorded Sex Assigned at Female 03/04/2020 12:33 PM MARKETING ASSISTANT MANAGER Legal Sex Female 5:14 AM MARKETING ASSISTANT MANAGER Gender Identity Female 03/04/2020 12:33 PM MARKETING ASSISTANT MANAGER Sexual Orientation Straight 03/04/2020 12 :33 PM MARKETING ASSISTANT MANAGER documented as of this encounter Plan of Treatment Not on file documented as of this encounter Visit Diagnoses Not on filedocumented in this encounter Additional Health Concerns Infection Onset Date Last Indicated Resolved Time Rule Out COVID-19 02/26/2020 02/26/2020 02/27/2020 4:32 PM MARKETING ASSISTANT MANAGER documented as of this encounter Care Teams Party Plan Sales Unit Advisor Relationship Specialty [place] [address] [place] [address] PCP - General Family Practice 12/29/17 05/21/20 Nikita Gamble MD [address] [place] [phone] PCP - General Family Medicine 05/26/20 Annette Alvarez APRN SAILING INSTRUCTOR [address] [place] [address] Nurse Practitioner Clinical Nurse Specialist 03/22/17 10/21/[address] [place] [address] Alliance Consultant Dietitian, Registered 05/25/18 Tamar Murphy APRN SAILING INSTRUCTOR [address] [place] [phone] Assigned PCP 02/08/20 11/15/20 [place] [address] [place] [place] [address] Assigned PCP 11/16/20 12/18/23 Harlan Lin MD NO INFO AVAILABLE Assigned Endocrinology Provider 12/07/20 08/01/21 Mikki Blevins MD [address] [place] [address] Endocrinology, Diabetes, and Metabolism 05/07/21 [place] [address] Assigned Endocrinology Provider 08/02/21 01/28/23 Mindi Llanes PA-C [address] [place] [id number] Assigned Surgical Provider 09/26/21 08/17/23 documented as of this encounter
--- OUTSIDE RECORDS SUMMARY | 2024-01-25 12:35 | XMS_ITS | Encounter Summary ---
Author Organization [facility] Address [address] [place] [address]. [place] [address] Care Team Providers Care Construction Producer Name Role Phone Antonio Annette Monroe APRN COMMUTATOR REPAIRER Unavailable Goran Lloyd MD Primary Care Provider Jocelyn Davidson RD Unavailable [phone] Tamar Murphy APRN COMMUTATOR REPAIRER Unavailable Nikita Gamble MD Primary Care Provider [phone] Naveen Casiano MD Unavailable [phone] Harlan Lin MD Unavailable Milagro vailable Mikki Blevins MD Unavailable [phone] Mikki Blevins MD Unavailable [phone] Mindi Llanes PA-C Unavailable [phone] Encounter Details Date Type Department Care Team (Late st Contact Info) Description 07/05/2018 [facility] [address] [facility] [address] [place] [address] Jocelyn Davidson, RD [address] [place] [address] Social History Tobacco Use Types Packs/Day Years Used Date Smoking Tobacco: Never Smokeless Tobacco: Never Alcohol Use Standard Drinks/Week Comments Yes 0 (1 standard drink = 0.6 oz pur e alcohol) rare Comments No Sex and Gender Information Value Date Recorded Sex Assigned at Female 03/04/2020 12:33 PM SPARE PARTS CLERK Legal Sex Female 5:14 AM SPARE PARTS CLERK Gender Identity Female 03/04/2020 12:33 PM SPARE PARTS CLERK Sexual Orientation Straight 03/04/2020 12 :33 PM SPARE PARTS CLERK documented as of this encounter Plan of Treatment Not on file documented as of this encounter Visit Diagnoses Not on filedocumented in this encounter Additional Health Concerns Infection Onset Date Last Indicated Resolved Time Rule Out COVID-19 02/26/2020 02/26/2020 02/27/2020 4:32 PM SPARE PARTS CLERK documented as of this encounter Care Teams Construction Producer Relationship Specialty [place] [address] [place] [address] PCP - General Family Practice 12/29/17 05/21/20 Nikita Gamble MD [address] [place] [phone] PCP - General Family Medicine 05/26/20 Annette Alvarez APRN COMMUTATOR REPAIRER [address] [place] [address] Nurse Practitioner Clinical Nurse Specialist 03/22/17 10/21/[address] [place] [address] Kosher Butcher Dietitian, Registered 05/25/18 Tamar Murphy APRN COMMUTATOR REPAIRER [address] [place] [phone] Assigned PCP 02/08/20 11/15/20 [place] [address] [place] [place] [address] Assigned PCP 11/16/20 12/18/23 Harlan Lin MD NO INFO AVAILABLE Assigned Endocrinology Provider 12/07/20 08/01/21 Mikki Blevins MD [address] [place] [address] Endocrinology, Diabetes, and Metabolism 05/07/21 [place] [address] Assigned Endocrinology Provider 08/02/21 01/28/23 Mindi Llanes PA-C [address] [place] [address] Assigned Surgical Provider 09/26/21 08/17/23 documented as of this encounter
--- OUTSIDE RECORDS SUMMARY | 2024-01-25 12:35 | XMS_ITS | Encounter Summary ---
Author Organization [facility] Address [address] [place] [address]. [place] [address] Care Team Providers Care Cooking Appliance Repair Technician Name Role Phone Antonio Annette Monroe APRN RAIL TECHNICIAN Unavailable Goran Lloyd MD Primary Care Provider Jocelyn Davidson RD Unavailable [phone] Tamar Murphy APRN RAIL TECHNICIAN Unavailable Nikita Gamble MD Primary Care Provider [phone] Naveen Casiano MD Unavailable [phone] Harlan Lin MD Unavailable Milagro vailable Mikki Blevins MD Unavailable [phone] Mikki Blevins MD Unavailable [phone] Mindi Llanes PA-C Unavailable [phone] Encounter Details Date Type Department Care Team (Late st Contact Info) Description 10/17/2018 [facility] [address] [address] Ashok Bella, RN Social History Tobacco Use Types Packs/Day Years Used Date Smoking Tobacco: Never Smokeless Tobacco: Never Alcohol Use Standard Drinks/Week Comments Yes 0 (1 standard drink = 0.6 oz pur e alcohol) rare Comments No Sex and Gender Information Value Date Recorded Sex Assigned at Female 03/04/2020 12:33 PM BLEMISH REMOVER Legal Sex Female 5:14 AM BLEMISH REMOVER Gender Identity Female 03/04/2020 12:33 PM BLEMISH REMOVER Sexual Orientation Straight 03/04/2020 12 :33 PM BLEMISH REMOVER documented as of this encounter Plan of Treatment Not on file documented as of this encounter Visit Diagnoses Not on filedocumented in this encounter Additional Health Concerns Infection Onset Date Last Indicated Resolved Time Rule Out COVID-19 02/26/2020 02/26/2020 02/27/2020 4:32 PM BLEMISH REMOVER documented as of this encounter Care Teams Cooking Appliance Repair Technician Relationship Specialty [place] [address] [place], [place] [phone] PCP - General Family Practice 12/29/17 05/21/20 Nikita Gamble MD [address] [place] [phone] PCP - General Family Medicine 05/26/20 Annette Alvarez APRN RAIL TECHNICIAN [address] [place], [place] [phone] Nurse Practitioner Clinical Nurse Specialist 03/22/17 10/21/[address] [place] [phone] Serging Machine Operator Automatic Dietitian, Registered 05/25/18 Tamar Murphy APRN RAIL TECHNICIAN [address] [place] [phone] Assigned PCP 02/08/20 11/15/20 [place] [address] [place], [place] [phone] Assigned PCP 11/16/20 12/18/23 Harlan Lin MD NO INFO AVAILABLE Assigned Endocrinology Provider 12/07/20 08/01/21 Mikki Blevins MD [address] [place] [address] Endocrinology, Diabetes, and Metabolism 05/07/21 [place] [address] Assigned Endocrinology Provider 08/02/21 01/28/23 Mindi Llanes PA-C [address] [place] [address] Assigned Surgical Provider 09/26/21 08/17/23 documented as of this encounter
== END 2024-01-25 12:30 | disposition home or self-care (01) ==
LOC: FBOREF 12:30
PROVIDERS: PCP Family Medicine; Visit Provider Family Medicine
DX: I10 Essential (primary) hypertension (principal)
CPT/HCPCS: 80048

== ENCOUNTER 2024-03-08 11:36 | Outpatient (CLI) | payer OTHER, SELFPAY | END 2024-03-08 11:37 | disposition home or self-care (01) | PROVIDERS: PCP Family Medicine; Visit Provider Family Medicine | DX: I12.9 Hypertensive chronic kidney disease with stage 1 through stage 4 chronic kidney disease, or unspecified chronic kidney disease (principal); N18.30 Chronic kidney disease, stage 3 unspecified | CPT/HCPCS: 80048; 82668 ==

== ENCOUNTER 2024-04-26 12:01 | Outpatient (CLI) | payer OTHER, SELFPAY | END 2024-04-26 12:02 | disposition home or self-care (01) | PROVIDERS: PCP Family Medicine; Visit Provider Family Medicine | DX: E10.9 Type 1 diabetes mellitus without complications (principal); R53.83 Other fatigue; I10 Essential (primary) hypertension | CPT/HCPCS: 80053; 85025 ==

== ENCOUNTER 2024-08-07 14:40 | Outpatient (CLI) | payer OTHER, SELFPAY | END 2024-08-07 14:41 | disposition home or self-care (01) | PROVIDERS: PCP Family Medicine; Visit Provider Family Medicine | DX: E10.9 Type 1 diabetes mellitus without complications (principal); E03.9 Hypothyroidism, unspecified; Z01.818 Encounter for other preprocedural examination | CPT/HCPCS: 80048; 84439; 84443; 85025 ==

== ENCOUNTER 2025-01-11 11:23 | Outpatient (CLI) | payer OTHER, SELFPAY ==
[2025-01-11 12:37] LABS: Chloride* 99 mmol/L (96-114)
[2025-01-11 12:38] LABS: Albumin* 3.9 g/dL (3.3-5.0); Potassium* 4.6 mmol/L (3.6-5.1); Sodium* 131 mmol/L (135-149)
[2025-01-11 12:40] LABS: Iron* 119 ug/dL (37-170)
[2025-01-11 12:41] LABS: Anion Gap 6 mEq/L (7-15); Blood Urea Nitrogen* 15 mg/dL (7-30); Calcium* 9.3 mg/dL (8.4-10.6); Carbon Dioxide* 26 mmol/L (20-32); Creatinine* 1.3 mg/dL (0.5-1.5); Estimated Glomerular Filt Rate 47 ml/min; Glucose* 249 mg/dL (60-115)
[2025-01-11 12:50] LABS: Percent Iron Saturation 40 % (20-50); Total Iron Binding Capacity 296 ug/dL (265-497)
== END 2025-01-11 11:24 | disposition home or self-care (01) ==
LOC: NPINS 11:24
PROVIDERS: PCP Family Medicine; Visit Provider Internal Medicine Nephrology
DX: N18.32 Chronic kidney disease, stage 3b (principal)
CPT/HCPCS: 80069; 82043; 82570; 82728; 83540; 83550

== ENCOUNTER 2025-02-28 11:38 | Outpatient (CLI) | payer OTHER, SELFPAY ==
[2025-02-28 14:25] LABS: Chloride* 99 mmol/L (96-114); Sodium* 136 mmol/L (135-149)
[2025-02-28 14:26] LABS: Albumin* 4.0 g/dL (3.3-5.0); Potassium* 5.2 mmol/L (3.6-5.1)
[2025-02-28 14:29] LABS: Anion Gap 9 mEq/L (7-15); Blood Urea Nitrogen* 17 mg/dL (7-30); Calcium* 9.0 mg/dL (8.4-10.6); Carbon Dioxide* 28 mmol/L (20-32); Creatinine* 1.4 mg/dL (0.5-1.5); Estimated Glomerular Filt Rate 43 ml/min; Glucose* 188 mg/dL (60-115); Iron* 50 ug/dL (37-170)
== END 2025-02-28 11:39 | disposition home or self-care (01) ==
LOC: NPINS 11:39
PROVIDERS: PCP Family Medicine; Visit Provider Internal Medicine Nephrology
DX: N18.32 Chronic kidney disease, stage 3b (principal)
CPT/HCPCS: 80069; 82043; 82570; 82728; 83540